=== PATIENT | female | born 2000 | race Caucasian/White ===

== ENCOUNTER 2022-07-09 07:17 | Emergency (ER) | payer OTHER, SELFPAY ==
--- NOTE | ~2022-07-09 | US_ITS ---
EXAMINATION: US pelvic complete DATE: 07/09/2022 09:04 INDICATION: Vaginal bleeding. . TECHNIQUE: Real-time transabdominal pelvic ultrasound was performed. COMPARISON: None. FINDINGS: The uterus measures 12.6 x 7.6 x 5.2 cm. There is a cyst in the endometrial complex measuring 5.4 x 2 .9 x 5.2 cm with internal low-level echoes. No yolk sac or pole is identified. The right ovary measures 2.6 x 1.3 x 1.5 cm. The left ovary measures 2.3 x 1.6 x 1.3 cm. There is no free fluid in t he pelvis. IMPRESSION: 1. Fluid collection in the endometrial complex with mean diameter of 4.5 cm and internal low-level e choes. This finding is indeterminate for a gestational sac. If this finding is a gestational sac, it would be consistent with a failed . Ectopic is not excluded. Serial beta-hCGs are recommended. Reviewed, dictated and finalized at location A. IMPRESSION: 1. Fluid collection in the endometrial complex with mean diameter of 4.5 cm an d internal low-level echoes. This finding is indeterminate for a gestational sa c. If this finding is a gestational sac, it would be consistent with a failed p regnancy. Ectopic is not excluded. Serial beta-hCGs are recommended.
[2022-07-09 07:23] VITALS: BP 151/92; PULSE 103; RESP 16; TEMP 36.7; O2SAT 100
--- NOTE | 2022-07-09 07:29 | ED.GENADULT ---
HPI - General Adult General Chief complaint: Vaginal Bleeding Stated complaint: bleeding while Time Seen by Provider: 07/09/22 07:18 History of Present Illness HPI narrative: 22-year-old female presenting the emergency department for evaluation of bleeding during a suspected . Patient states she suspects she is approximately 14 weeks . Patient has had a positive home test but has not yet had follow-up with [facility]. Patient is G1, P0. Patient states last night she began having some vaginal spotting and then had vaginal bleeding consistent with normal menses. Patient denies any pain with urination. Patient denies any associated nausea vomiting diarrhea chest pain or shortness of breath. Patient states she has not had follow-up with [facility] because she works nights. Related Data Allergies Allergy/AdvReac Type Severity Reaction Status Date / Time No Known Allergies Allergy Verified 07/09/22 07:18 Review of Systems Review of Systems: CONSTITUTIONAL: Denies fever, chills, or sweats. EYES: Denies visual changes, redness, or discharge. ENT: Denies rhinorrhea, congestion, sore throat, or otalgia. CARDIOVASCULAR: Denies chest pain, palpitations, or edema. RESPIRATORY: Denies cough or dyspnea. GASTROINTESTINAL: See HPI GENITOURINARY: Denies dysuria or hematuria. SKIN: Denies rash or itching. MUSCULOSKELETAL: Denies back pain, joint pain, or myalgia. NEUROLOGIC: Denies headache, numbness, or weakness. PSYCHIATRIC: Denies anxiety or depression. Exam Narrative: APPEARANCE: Well appearing, no pain, no distress, well-nourished. HEAD: normocephalic, atraumatic. EYES: PERRLA/EOMI, conjunctivae clear. NOSE: Normal no drainage NECK: Supple. No adenopathy, no masses. RESPIRATORY: Airway patent, respirations nonlabored. Clear to auscultation bilaterally, no rales, rhonchi, wheezing. CARDIOVASCULAR: Regular rate and rhythm without murmurs rubs or gallops. ABDOMINAL: Soft, nontender, nondistended, normal bowel sounds MUSCULOSKELETAL: Moves all extremities. Strength/ROM intact, No edema, No calf tenderness. NEURO: Alert. Cranial nerves II through XII intact. Grossly intact SKIN: Warm, dry. Normal Color Course Course Emergency Course: Discussed case with Dr. Cruz. We will plan for close outpatient follow-up. Outpatient beta-hCG was ordered for Tuesday. Patient was updated on the results of the work-up and suspected early stages of miscarriage. Patient was encouraged to continue drink plenty of water and take Tylenol for pain control. Patient states that the vaginal bleeding is still menstrual levels. Patient's labs are within normal limits including a hemoglobin of 14.3. All questions concerns were addressed. Patient was well-appearing at time of discharge from emergency room. Vital Signs Vital signs: Vital Signs Temperature 98.0 F 07/09/22 07:23 Pulse Rate 103 H 07/09/22 07:23 Respiratory Rate 16 07/09/22 07:23 Blood Pressure 151/92 H 07/09/22 07:23 Pulse Oximetry 100 07/09/22 07:23 Oxygen Delivery Room Air 07/09/22 07:23 Temperature 98.0 F 07/09/22 07:23 Pulse Rate 103 H 07/09/22 07:23 Respiratory Rate 16 07/09/22 07:23 Blood Pressure 151/92 H 07/09/22 07:23 Pulse Oximetry 100 07/09/22 07:23 Oxygen Delivery Room Air 07/09/22 07:23 Medical Decision Making Vital Signs Vital Signs: Vital Signs Temperature 98.0 F 07/09/22 07:23 Pulse Rate 103 H 07/09/22 07:23 Respiratory Rate 16 07/09/22 07:23 Blood Pressure 151/92 H 07/09/22 07:23 Pulse Oximetry 100 07/09/22 07:23 Oxygen Delivery Room Air 07/09/22 07:23 Temperature 98.0 F 07/09/22 07:23 Pulse Rate 103 H 07/09/22 07:23 Respiratory Rate 16 07/09/22 07:23 Blood Pressure 151/92 H 07/09/22 07:23 Pulse Oximetry 100 07/09/22 07:23 Oxygen Delivery Room Air 07/09/22 07:23 Lab Data Lab results reviewed: Yes I reviewed the patient's lab results. Result diagrams:
[2022-07-09 07:59] LABS: Appearance Urine Cloudy (Clear); Bilirubin Urine Negative (Negative); Blood Urine 3+ (Negative); Color Urine Yellow (Yellow); Glucose Urine UA Negative (Negative); Ketones Urine Negative (Negative); Leukocyte Esterase Ur Negative LEU/UL (Negative); Nitrate Urine Negative (Negative); Protein Urine 1+ mg/dL (Negative); Specific Grav Ur 1.025 (1.001-1.035); Urobilinogen Urine 0.2 mg/dL (<2.0); pH Urine 6.5 (5.0-9.0)
[2022-07-09 08:01] LABS: Basophils Absolute Auto 0.1 K/mm3 (0.0-0.1); Basophils Percent Auto 0.4 % (0.2-1.2); Eosinophils Absolute Auto 0.2 K/mm3 (0-0.3); Eosinophils Percent Auto 1.7 % (0-4.4); Hematocrit 41.8 % (37.0-47.0); Hemoglobin 14.3 g/dL (12.0-15.0); Immature Granulocyte Absolute 0.03 K/mm3 (0.00-0.031); Immature Granulocyte Percent A 0.3 % (0-0.5); Lymphocytes Absolute Auto 2.31 K/mm3 (0.9-3.2); Lymphocytes Percent Auto 19.7 % (18.3-44.2); Mean Corpuscular HGB Conc 34.2 g/dl (32-36); Mean Corpuscular Hemoglobin 30.5 pg (26-34); Mean Corpuscular Volume 89.1 fl (80-100); Mean Platelet Volume 10.9 fl (7.4-10.4); Monocytes Absolute Auto 0.7 K/mm3 (0.1-0.6); Monocytes Percent Auto 6.2 % (2.6-8.5); Neutrophils Absolute Auto 8.4 K/mm3 (1.3-6.7); Neutrophils Percent Auto 71.7 % (45.5-73.1); Platelet Count Result 233 k/mm3 (150-375); Red Blood Count 4.69 M/mm3 (4.2-5.4); Red Cell Distribution Width 11.8 % (11.5-14.5); White Blood Count 11.7 K/mm3 (4.5-10.0)
[2022-07-09 08:03] LABS: Mucus Urine Rare /lpf; RBC Urine >75 /hpf (0-2); Squamous Epithelial Cell Urine Few /hpf (Few); WBC Urine 0-3 /hpf
[2022-07-09 08:05] LABS: Add Urine Microscopic? YES
[2022-07-09 08:07] LABS: INR 1.1; Prothrombin Time 13.3 Seconds (11.1-14.7)
[2022-07-09 08:08] LABS: Partial Thromboplastin Time 30.8 SECONDS (22.3-36.8)
[2022-07-09 08:11] LABS: Alanine Aminotransferase 25 U/L (6-35); Albumin Level 4.5 g/dL (3.5-5.1); Alkaline Phosphatase 62 U/L (38-126); Anion Gap 10 mmol/L (8-16); Aspartate Amino Transferase 25 U/L (14-36); Bilirubin,Total 0.3 mg/dL (0.2-1.3); Blood Urea Nitrogen 10 mg/dL (7-17); Calcium 8.9 mg/dL (8.4-10.2); Carbon Dioxide 26 mmol/L (22-30); Chloride 104 mmol/L (98-107); Estimated CRCL calculation 148 ml/min; Estimated Glomerular Filt Rate > 60; Glucose 92 mg/dL (65-110); Potassium 3.8 mmol/L (3.4-5.0); Sodium 140 mmol/L (137-145)
[2022-07-09 10:02] VITALS: BP 149/89; PULSE 98; RESP 18; O2SAT 98
== END 2022-07-09 10:31 | disposition home or self-care (01) ==
PROVIDERS: Emergency Provider Emergency Medicine; PCP Family Medicine
DX: O20.9 Hemorrhage in early pregnancy, unspecified (principal); Z3A.01 Less than 8 weeks gestation of pregnancy
CPT/HCPCS: 36415; 76856; 80053; 81001; 81025; 84702; 85025; 85461; 85610; 85730; 86900; 86901; 99284

== ENCOUNTER 2022-07-09 15:42 | Emergency (ER) | payer OTHER, SELFPAY ==
[2022-07-09 15:55] VITALS: BP 138/97; PULSE 113; RESP 18; TEMP 36.2; O2SAT 98
[2022-07-09 17:01] LABS: Basophils Absolute Auto 0.1 K/mm3 (0.0-0.1); Basophils Percent Auto 0.3 % (0.2-1.2); Eosinophils Absolute Auto 0.1 K/mm3 (0-0.3); Eosinophils Percent Auto 0.6 % (0-4.4); Hematocrit 40.6 % (37.0-47.0); Hemoglobin 14.2 g/dL (12.0-15.0); Immature Granulocyte Percent A 0.5 % (0-0.5); Lymphocytes Absolute Auto 1.61 K/mm3 (0.9-3.2); Lymphocytes Percent Auto 8.6 % (18.3-44.2); Mean Corpuscular Volume 88.6 fl (80-100); Mean Platelet Volume 10.9 fl (7.4-10.4); Monocytes Absolute Auto 0.9 K/mm3 (0.1-0.6); Monocytes Percent Auto 4.7 % (2.6-8.5); Neutrophils Absolute Auto 15.9 K/mm3 (1.3-6.7); Neutrophils Percent Auto 85.3 % (45.5-73.1); Platelet Count Result 236 k/mm3 (150-375); Red Blood Count 4.58 M/mm3 (4.2-5.4); Red Cell Distribution Width 11.9 % (11.5-14.5); White Blood Count 18.6 K/mm3 (4.5-10.0)
--- NOTE | 2022-07-09 17:17 | PC.NURSE ---
States she is passing clots. Saturated through an adult diaper on the drive here. .
--- NOTE | 2022-07-09 17:54 | ED.PREGNANCY ---
HPI - General Chief complaint: Vaginal Bleeding <Frieda Montoya PA-C - Last Filed: 07/09/22 18:22> Stated complaint: heavy vaginal bleeding while <Frieda Montoya PA-C - Last Filed: 07/09/22 18:22> Time Seen by Provider: 07/09/22 17:21 <Frieda Montoya PA-C - Last Filed: 07/09/22 18:22> Source: patient <ROGELIO Rucker Last Filed: 07/09/22 18:22> Mode of arrival: ambulatory <ROGELIO Rucker Last Filed: 07/09/22 18:22> Limitations: no limitations <ROGELIO Rucker Last Filed: 07/09/22 18:22> History of Present Illness HPI Narrative: This is a 22 year old , about 14 weeks by LMP that presents to the ER for vaginal bleeding. Reports she was seen earlier today for a possible miscarriage. Reports worsening bleeding which prompted her to be seen again. Denies fever or vomiting. <Frieda Montoya PA-C - Last Filed: 07/09/22 18:22> Related Data Home medications: Home Medications Medication Instructions Recorded Confirmed No Home Medications 07/13/22 07/13/22 <Frieda Montoya PA-C - Last Filed: 07/09/22 18:22> Allergies/Adverse reactions: Allergies Allergy/AdvReac Type Severity Reaction Status Date / Time No Known Allergies Allergy Verified 07/13/22 13:42 <ROGELIO Rukcer Last Filed: 07/09/22 18:22> Review of Systems Review of Systems: CONSTITUTIONAL: Denies fever GASTROINTESTINAL: Denies abdominal pain, nausea, vomiting <ROGELIO Rucker Last Filed: 07/09/22 18:22> All systems reviewed & are unremarkable except as noted in HPI and below <ROGELIO Rucker Last Filed: 07/09/22 18:22> PMFSH Past Medical History Medical History: Medical History Depression No active medical problems <Frieda Montoya PA-C - Last Filed: 07/09/22 18:22> Surgical History Surgical History: Surgical History History of appendectomy <Frieda Montoya PA-C - Last Filed: 07/09/22 18:22> Family History Family History: Family History Other Diabetes mellitus Heart disease <Frieda Montoya PA-C - Last Filed: 07/09/22 18:22> Social History Social History: Social History (Updated 07/13/22 @ 13:44 by Gladis Corral MA) Smoking packs per day: 0.5 Smoking cigarettes per day: 10.0 Years smoked: 4 Smoking pack-years: 2.00 Smoking status: Current every day smoker Smokeless tobacco user: chewing tobacco Alcohol intake: never Substance use: never Substance use type: does not use Gender identity (if verbalized by the patient): Female Sexual Orientation (if Verbalized by the Patient): Straight or Heterosexual <Frieda Montoya PA-C - Last Filed: 07/09/22 18:22> Exam Narrative: GENERAL: Well-appearing, well-nourished, and in no acute distress. HEAD: Normocephalic, atraumatic. EYES: EOMI. CHEST: No respiratory distress. HEART: Regular rate EXTREMITIES: Normal range of motion. No edema. SKIN: Warm, dry, no rash. NEURO: No focal deficits. Alert and oriented x3. PSYCH: Normal mood and affect PELVIC: Normal external genitalia. Normal appearing cervix. Small amount of dark red blood in the vaginal vault <Frieda Montoya PA-C - Last Filed: 07/09/22 18:22> Course MANAGER PHARMACY/PA Physician Supervision For this patient encounter, I reviewed the MANAGER PHARMACY or PA documentation, treatment plan, and medical decision making. I was available for consultation as needed. <Amanda Holden MD - Last Filed: 07/23/22 16:13> Vital Signs Vital signs: Vital Signs Temperature 97.1 F L 07/09/22 15:55 Pulse Rate 113 H 07/09/22 15:55 Respiratory Rate 18 07/09/22 15:55 Blood Pressure 138/97 H 07/09/22 15:55 Pulse Oximetry 98 07/09/22 15:55 Temperature 97.1 F L 07/09/22 15:55 Pulse Rate 113 H 07/09/22
== END 2022-07-09 18:32 | disposition home or self-care (01) ==
PROVIDERS: Emergency Medicine; Emergency Provider Emergency Medicine; PCP Family Medicine
DX: O03.9 Complete or unspecified spontaneous abortion without complication (principal); F17.200 Nicotine dependence, unspecified, uncomplicated
CPT/HCPCS: 36415; 84702; 85025; 85461; 99284

== ENCOUNTER 2022-07-13 14:47 | Outpatient (CLI) | payer OTHER, SELFPAY ==
[2022-07-13 15:26] LABS: Beta HCG Quantitative 37.51 mIU/ML
== END 2022-07-13 14:48 | disposition home or self-care (01) ==
LOC: ANHLAB 14:48
PROVIDERS: PCP Family Medicine; Visit Provider Emergency Medicine
DX: N93.9 Abnormal uterine and vaginal bleeding, unspecified (principal)
CPT/HCPCS: 36415; 84702

== ENCOUNTER 2022-07-22 08:28 | Outpatient (CLI) | payer OTHER, SELFPAY ==
[2022-07-22 09:22] LABS: Beta HCG Quantitative 5.57 mIU/ML
== END 2022-07-22 08:29 | disposition home or self-care (01) ==
PROVIDERS: PCP Family Medicine; Visit Provider Obstetrics & Gynecology
DX: O02.1 Missed abortion (principal)
CPT/HCPCS: 36415; 84702

== ENCOUNTER 2022-08-04 11:10 | Outpatient (CLI) | payer OTHER, SELFPAY ==
[2022-08-04 12:35] LABS: Cholesterol 192 mg/dL (0-200); HDL Direct 33 mg/dL; Triglycerides 224 mg/dL (<150)
[2022-08-04 12:37] LABS: Basophils Absolute Auto 0.1 K/mm3 (0.0-0.1); Basophils Percent Auto 0.8 % (0.2-1.2); Eosinophils Absolute Auto 0.4 K/mm3 (0-0.3); Eosinophils Percent Auto 6.5 % (0-4.4); Hemoglobin 14.4 g/dL (12.0-15.0); Immature Granulocyte Absolute 0.01 K/mm3 (0.00-0.031); Immature Granulocyte Percent A 0.2 % (0-0.5); Lymphocytes Absolute Auto 2.83 K/mm3 (0.9-3.2); Lymphocytes Percent Auto 44.8 % (18.3-44.2); Mean Corpuscular HGB Conc 33.5 g/dl (32-36); Mean Corpuscular Hemoglobin 29.9 pg (26-34); Mean Corpuscular Volume 89.2 fl (80-100); Mean Platelet Volume 11.6 fl (7.4-10.4); Monocytes Absolute Auto 0.4 K/mm3 (0.1-0.6); Neutrophils Absolute Auto 2.6 K/mm3 (1.3-6.7); Neutrophils Percent Auto 40.7 % (45.5-73.1); Platelet Count Result 258 k/mm3 (150-375); Red Blood Count 4.82 M/mm3 (4.2-5.4); Red Cell Distribution Width 11.3 % (11.5-14.5); White Blood Count 6.3 K/mm3 (4.5-10.0)
[2022-08-04 12:46] LABS: LDL Cholesterol Direct 119 mg/dL
[2022-08-04 12:52] LABS: Beta HCG Quantitative < 2.39 mIU/ML
[2022-08-04 13:07] LABS: Thyroid Stimulating Hormone 0.865 uIU/mL (0.465-4.680)
== END 2022-08-04 11:11 | disposition home or self-care (01) ==
PROVIDERS: PCP Family Medicine; Referring Provider Obstetrics & Gynecology; Visit Provider Nurse Practitioner Family
DX: Z13.29 Encounter for screening for other suspected endocrine disorder (principal); O02.1 Missed abortion; Z13.220 Encounter for screening for lipoid disorders; D72.829 Elevated white blood cell count, unspecified; Z3A.00 Weeks of gestation of pregnancy not specified
CPT/HCPCS: 36415; 80061; 84443; 84702; 85025

== ENCOUNTER 2022-08-13 11:48 | Outpatient (CLI) | payer OTHER, SELFPAY ==
[2022-08-13 12:40] LABS: Beta HCG Quantitative < 2.39 mIU/ML
[2022-08-13 13:28] LABS: Hemoglobin A1C 5.6 % (<5.7)
[2022-08-16 11:44] LABS: DHEA-Sulfate 164 mcg/dL (18-391)
[2022-08-16 14:36] LABS: FSH 4.5 mIU/mL (***); Progesterone 8.7 ng/mL (***); Prolactin 12.8 ng/mL (***)
[2022-08-17 14:21] LABS: Testosterone Free 4.1 pg/mL (0.1-6.4); Testosterone Total 25 ng/dL (2-45)
[2022-08-19 22:23] LABS: Estradiol, Ultrasensitive 68 pg/mL
== END 2022-08-13 11:49 | disposition home or self-care (01) ==
LOC: ANHLAB 11:49
PROVIDERS: PCP Family Medicine; Visit Provider Obstetrics & Gynecology
DX: N92.6 Irregular menstruation, unspecified (principal)
CPT/HCPCS: 36415; 82627; 82670; 83001; 83036; 83498; 84144; 84146; 84402; 84403; 84702

== ENCOUNTER 2022-12-20 09:59 | Outpatient (CLI) | payer OTHER, SELFPAY ==
[2022-12-20 10:32] LABS: Basophils Absolute Auto 0.1 K/mm3 (0.0-0.1); Basophils Percent Auto 0.7 % (0.2-1.2); Eosinophils Absolute Auto 0.2 K/mm3 (0-0.3); Eosinophils Percent Auto 2.3 % (0-4.4); Hematocrit 42.6 % (37.0-47.0); Hemoglobin 14.6 g/dL (12.0-15.0); Immature Granulocyte Absolute 0.02 K/mm3 (0.00-0.031); Immature Granulocyte Percent A 0.2 % (0-0.5); Mean Corpuscular HGB Conc 34.3 g/dl (32-36); Mean Corpuscular Hemoglobin 30.2 pg (26-34); Mean Corpuscular Volume 88.2 fl (80-100); Monocytes Absolute Auto 0.8 K/mm3 (0.1-0.6); Monocytes Percent Auto 9.3 % (2.6-8.5); Neutrophils Absolute Auto 4.3 K/mm3 (1.3-6.7); Neutrophils Percent Auto 49.5 % (45.5-73.1); Platelet Count Result 247 k/mm3 (150-375); Red Blood Count 4.83 M/mm3 (4.2-5.4); Red Cell Distribution Width 11.9 % (11.5-14.5); White Blood Count 8.7 K/mm3 (4.5-10.0)
[2022-12-20 10:59] LABS: Beta HCG Quantitative 35.27 mIU/ML
[2022-12-20 11:21] LABS: HIV 1/2 Ab P24 Ag Result Negative (Negative)
[2022-12-20 11:27] LABS: Rubella IgG Antibody 52.5 IU/ML
[2022-12-20 16:44] LABS: Rapid Plasma Reagin Non-Reactive (NonReactive)
== END 2022-12-20 10:00 | disposition home or self-care (01) ==
LOC: ANHLAB 10:00
PROVIDERS: PCP Family Medicine; Visit Provider Obstetrics & Gynecology
DX: N94.89 Other specified conditions associated with female genital organs and menstrual cycle (principal); O20.0 Threatened abortion; Z3A.00 Weeks of gestation of pregnancy not specified
CPT/HCPCS: 36415; 84702; 85025; 86592; 86703; 86762; 86900; 86901; G0432

== ENCOUNTER 2022-12-22 12:28 | Outpatient (CLI) | payer OTHER, SELFPAY | END 2022-12-22 12:29 | disposition home or self-care (01) | LOC: ANHLAB 12:29 | PROVIDERS: PCP Family Medicine; Visit Provider Obstetrics & Gynecology | DX: O20.0 Threatened abortion (principal); Z3A.00 Weeks of gestation of pregnancy not specified | CPT/HCPCS: 36415; 84702 ==

== ENCOUNTER 2022-12-27 11:12 | Outpatient (CLI) | payer OTHER, SELFPAY ==
[2022-12-27 13:03] LABS: Beta HCG Quantitative 9.47 mIU/ML
== END 2022-12-27 11:13 | disposition home or self-care (01) ==
PROVIDERS: PCP Family Medicine; Visit Provider Obstetrics & Gynecology
DX: O20.0 Threatened abortion (principal)
CPT/HCPCS: 36415; 84702

== ENCOUNTER 2023-06-14 11:05 | Outpatient (CLI) | payer OTHER, SELFPAY ==
[2023-06-14 11:42] LABS: Basophils Absolute Auto 0.1 K/mm3 (0.0-0.1); Basophils Percent Auto 0.8 % (0.2-1.2); Eosinophils Absolute Auto 0.1 K/mm3 (0-0.3); Eosinophils Percent Auto 1.3 % (0-4.4); Hematocrit 42.6 % (37.0-47.0); Hemoglobin 14.3 g/dL (12.0-15.0); Immature Granulocyte Absolute 0.07 K/mm3 (0.00-0.031); Lymphocytes Absolute Auto 2.76 K/mm3 (0.9-3.2); Mean Corpuscular HGB Conc 33.6 g/dl (32-36); Mean Corpuscular Volume 89.3 fl (80-100); Mean Platelet Volume 11.4 fl (7.4-10.4); Monocytes Absolute Auto 0.6 K/mm3 (0.1-0.6); Monocytes Percent Auto 8.8 % (2.6-8.5); Neutrophils Absolute Auto 3.5 K/mm3 (1.3-6.7); Neutrophils Percent Auto 49.1 % (45.5-73.1); Platelet Count Result 239 k/mm3 (150-375); Red Blood Count 4.77 M/mm3 (4.2-5.4); Red Cell Distribution Width 11.7 % (11.5-14.5); White Blood Count 7.1 K/mm3 (4.5-10.0)
[2023-06-14 11:59] LABS: Anion Gap 7 mmol/L (8-16); Blood Urea Nitrogen 14 mg/dL (7-17); Calcium 9.3 mg/dL (8.4-10.2); Carbon Dioxide 25 mmol/L (22-30); Chloride 104 mmol/L (98-107); Estimated Glomerular Filt Rate > 60; Glucose 98 mg/dL (65-110); Potassium 3.9 mmol/L (3.4-5.0); Sodium 136 mmol/L (137-145)
== END 2023-06-14 11:06 | disposition home or self-care (01) ==
LOC: ANHLAB 11:06
PROVIDERS: PCP Family Medicine; Visit Provider Physician Assistant Medical
DX: D72.829 Elevated white blood cell count, unspecified (principal); N92.6 Irregular menstruation, unspecified; L81.9 Disorder of pigmentation, unspecified
CPT/HCPCS: 36415; 80048; 85025

== ENCOUNTER → 2023-06-14 11:28 | Outpatient (REF) | payer OTHER, SELFPAY | LOC: ANHLAB 11:28 | PROVIDERS: PCP Family Medicine; Visit Provider Plastic Surgery | DX: C43.72 Malignant melanoma of left lower limb, including hip (principal) | CPT/HCPCS: 36415; 80048; 85025; 88305 ==

== ENCOUNTER 2023-08-25 00:25 | Day surgery (SDC) | payer OTHER, SELFPAY ==
[2023-08-16 13:37] VITALS: BMI 43.6
--- NOTE | 2023-08-16 13:49 | PC.NURSE ---
Report to the Outpatient Waiting Room, entrance under the green pavilion located off [facility], at time _0630_ on date _[id number]_. Planned Procedure Time: _0900_. Nuc med injection at 0730 Time changes happen often and if your time is changed the preop area will call you the afternoon before. - You and your visitor will be asked to self-screen and do not enter if you have any COVID symptoms. - A mask is optional within the hospital at this time. Patients may have clear liquids (water, carbonated beverages, clear teas, apple juice) until 3 hours prior to surgery with a maximum of 20 ounces. - No food from midnight until time of surgery Take the following medications with a SIP of water the morning of surgery: ___Aprill DO NOT STOP ANY OF YOUR OTHER PRESCRIPTION MEDICATIONS PRIOR TO SURGERY ?EXCEPT THE FOLLOWING Medications to discontinue per physician None Date to take last dose Please no make-up, nail wolof, hairspray, perfume, deodorant, or body powder the day of surgery. No jewelry (including any body piercings) or valuables the day of surgery, leave them at home. Please take a shower or bath the night before, or the morning of, surgery with an antibacterial soap. Wear comfortable, loose fitting clothing. - Jewelry must be removed prior to entering the operating room. Rings and piercings that are not removed may be cut off. - The hospital will not accept responsibility for valuables. - Please leave all valuables, including medications, at home the day of surgery. If you are going home after surgery, a licensed commercial driver's license driver must drive you home. - NO public transportation without another adult if you receive anesthesia. - We recommend that an adult stay with you for 24 hours following discharge. - We also recommend that you do not drive, make important decision, drink alcoholic beverages, or take any drugs that were not prescribed by your health care provider for at least 24 hours after your discharge time. Follow any additional instructions given to you from your surgeon. If you or anyone in your household have experienced Covid symptoms in the past week, please notify your surgeon or the nurse liaison at the phone number below for possible testing. Telephone instructions given to __Patient__and asked if any additional questions and then verbalized understanding. Patient advised to call surgeon office or pre surgery nurse liaison [phone] if any additional questions.
[2023-08-25] VITALS (9 sets, daily range): BP systolic 141–152; BP diastolic 70–98; PULSE 75–107; RESP 14–22; TEMP 36.6–36.9; O2SAT 97–99; BMI 44.4
--- NOTE | ~2023-08-25 | NM_ITS ---
NM sentinel node w imaging 08/26/2023 13:23 CDT INDICATION:: Melanoma of the left foot TECHNIQUE: 0.5 Millicuries Tc 99m Tilanocept was injected using 2 aliquots in the left foot at the elder rgical excision site. Subsequent images demonstrate mild uptake in the left inguinal region, likely l ymph node uptake. IMPRESSION: 1: Status post left foot sentinel lymph node radiopharmaceutical injection with mild uptake in the l eft inguinal location. Reviewed, dictated and finalized at location A. IMPRESSION: 1: Status post left foot sentinel lymph node radiopharmaceutical injection wit h mild uptake in the left inguinal location.
[2023-08-25] MEDS: LACTATED RINGERS 1,000 ML 30 ML IV CONT ×3 (07:00→12:49)
--- NOTE | 2023-08-25 08:05 | WPDHPUPDATE1 ---
History and Physical Update Update Date/Time: 08/25/23 08:05 Patient seen and examined in pre-operative holding area. No interval change in medical history or symptoms. Continues to desire to proceed with left foot melanoma excision for additional margins and full thickness skin graft. Reviewed procedure, post-op expectations and risks including but not limited to bleeding, infection, injury to tendon/nerve/vessel, partial/total graft failure, donor site complications, stiffness, recurrence, no change or worsening of symptoms. Patient stated understanding and signed the consent form wishing to proceed. ROS: full review of systems and within normal limits PE: CV: RRR Pulm: CTAB Plan: proceed with left foot melanoma excision and ftsg
--- NOTE | 2023-08-25 08:07 | P.OP_ITS ---
Procedure Note - Detailed Date of Procedure 08/25/23 Pre-op Diagnosis Hx of Melanoma Left Foot Post-op Diagnosis Same Procedure Performed re-excision left dorsal foot melanoma and full thickness skin graft Surgeon Sidney De MD Anesthesia General Description of Procedure Patient was seen in pre-op holding area and marked and consent signed. She was taken back to the operating room and placed on the table in supine position. Time out was performed with anesthesia, surgeons, and staff agreeing on patients name, site and surgery to be performed. SCDs were placed on the Right Lower Extremity and inflated. Antibiotics were given IV. After General anesthesia was administered the left lower extremity and groin were prepped in sterile fashion. I transposed the marked excision site margins to the left inguinal crease which encompassed the planned incision for Dr. Cantrell and then made this incision with a 15-blade scalpel through skin and dermis. I used bovie to complete the excision of the full thickness graft. Care was then given to Dr. Cantrell who performed a sentinel lymph node biopsy. I proceeded with making an incision around her previous left dorsal foot excision site with 2cm margins. The defect size measured 5.3x4.5cm. Hemostasis was with bovie cautery. I irrigated with NS. The graft was defatted and then sewn into place with 3-0 nylon and 4-0 chromic sutures. a xeroform bolster was then sewn into place using the tails of the nylon sutures. After changing gloves and using clean instruments, I irrigated the donor site with normal saline. The donor site was closed with 3-0 vicyl for fascia and dermis and 4-0 monocryl. A dressing of dermabond, 4x4 and tegaderm was used for the donor site. 4x4, kerlix, and cam boot was placed on the left lower extremity to prevent ankle motion. The patient was awaken from anesthesia and transferred to recovery in stable condition. Complicaitons: none EBL: 6cc Disposition: Discharged home in stable condition [facility] [place] Surgery - Charge Forward: Surgery Billing ([id number] and [id number] and [id number])
--- NOTE | 2023-08-25 09:03 | WPDANESEPPF ---
Anes - Initial Pre Proc Eval Procedure: Operation Date: 08/25/23 09:00 Proposed Procedures p [place] Lymph Node Biopsy Melanoma Left Foot - Roc Taylor MD s Excision Melanoma Left Foot with Full Thickness Skin Graft - Sidney De MD Date/Time: 08/25/23 09:03 Surgeon: Roc Taylor MD Pre Op Diagnosis: Hx of Melanoma Left Foot Patient Data Age: 23 Gender: F Height: 1.68 m Weight: 125 kg Last Vital Signs Temp 97.8 F 08/25/23 06:35 Pulse 78 08/25/23 06:35 Resp 16 08/25/23 06:35 BP 152/88 H 08/25/23 06:35 Pulse Ox 98 08/25/23 06:35 O2 Del Method Room Air 08/25/23 06:35 Allergies Allergy/AdvReac Type Severity Reaction Status Date / Time No Known Allergies Allergy Verified 08/25/23 06:53 Home Medications Medication Instructions Recorded Confirmed Type norethindrone 1 mg-ethinyl 1 tablet PO DAILY 08/16/23 08/25/23 History estradiol 20 mcg (24)-iron 75 mg (4) tablet () Patient hx anesthesia problems: none Family hx anesthesia problems: none Results Review: All pre-operative results and documents have been reviewed as part of the pre-operative evaluation. [facility] Past Medical History Medical History BMI 40.0-44.9, adult Depression No active medical problems Suppression, menstruation Surgical History Surgical History History of appendectomy Family History Family History Father No problems noted. Mother No problems noted. Sibling No problems noted. Other Diabetes mellitus Heart disease Social History Social History Smoking packs per day: 0.5 Smoking cigarettes per day: 10.0 Years smoked: 4 Smoking pack-years: 2.00 Smoking status: Former smoker Tobacco type: cigarettes Second hand tobacco smoke exposure: Yes Smoking end date: 12/17/22 Alcohol intake: never Substance use: current Substance use type: marijuana Other substance usage details: Not very often Lack of Transportation: No Lack of Food: Never True Current Housing: I Have Housing Concerned About Future Housing: No Difficulty Paying Gas/Electric Bills: No Difficulty Paying for Meds: No Currently Unemployed: No Education: High School Diploma/GED Difficulty w/ Childcare or Family Care: No Living arrangements: with family Occupation/Education: occupation Additional occupation/education comments: [employer] Gender identity (if verbalized by the patient): Female Sexual Orientation (if Verbalized by the Patient): Straight or Heterosexual Spiritual care concerns: No Anes - Eval Final PreProcedure Day of Procedure 08/25/23 09:03 Patient weight: morbidly obese Heart: regular rate and rhythm Lungs: clear to auscultation Airway: Mallampati scale class II Neurological: alert and oriented Last oral intake: >/= 8 hours ASA classification: III Emergent: no Anesthetic plan: proceed Anesthesia type and monitoring: general LMA and standard monitoring Results Review: All pre-operative results and documents have been reviewed as part of the pre-operative evaluation. Informed Consent: The patient's anesthetic plan and its attendant risks and benefits were discussed with the patient/family/POA. Questions were solicited and answers provided to the satisfaction of the patient/family/POA.
--- NOTE | 2023-08-25 09:16 | WPDHPUPDATE1 ---
History and Physical Update Update Date/Time: 08/25/23 09:16 History and Physical has been reviewed, including an updated exam of the patient. There are NO changes in the patient's condition. Risks, benefits, and alternatives have been discussed and questions answered. Patient agrees to proceed with procedure.
[2023-08-25] MEDS: ceFAZolin 3 GM/D5W 100 ML 100 ML IVPB (09:28)
[2023-08-25] MEDS: LIDO 1%/EPINEPHRINE 1:100,000 20 ML VIAL 10 ML INFILTRATE (10:07)
--- NOTE | 2023-08-25 10:48 | SUR.OPER ---
Signal for Superficial Lateral Left Groin Lymph Node: 186 Signal for Superficial Vertical Left Groin Lymph Node: 199
--- NOTE | 2023-08-25 10:55 | P.OP_ITS ---
Procedure Note - Detailed Date of Procedure 08/25/23 Pre-op Diagnosis Hx of Melanoma Left Foot Post-op Diagnosis Same Procedure Performed Neponset node biopsy, superficial x2 left groin Surgeon Roc Taylor MD Environmental Remediation Engineer Huyen S Anesthesia General Indications PT4b melanoma left foot without palpable lymphadenopathy Findings Non discolored normal appearing superficial lateral lymph node. Non discolored normal-appearing superficial inferior ''vertical lymph node Description of Procedure This is the Dr. Roc Taylor portion of the case schedule today by Dr. De for treatment of the pT4b melanoma of the left foot. Dr. De is performing the wide excision and skin grafting at the primary tumor site today. Dr. Taylor will be doing the sentinel node biopsy at Dr. De's request. The patient was seen in the holding area following the injection of TC99 colloid dye to the area of the melanoma of the left dorsal foot. A site of uptake was identified in the left groin. The site was initialed by me. She was taken to the operating room placed supine on the operating table she was given general endotracheal anesthesia. The left groin area and left foot were prepped and draped in usual fashion. The bed was adjusted to allow slight hyperextension of the hips. The abdomen had been taped to an elevated position. The surgical site was clearly visible. The gamma probe was applied to the marked sites and indeed an elevated count was identified. Dr. De began the surgery at this site by taking a full-thickness skin graft from the groin area overlying the sentinel node. Gilma's fascia was incised. The gamma probe was brought up and the 1st lymph node easily identified in the superficial lateral group. This was carefully dissected primarily with blunt dissection and bipolar cautery. The afferent and efferent lymphatics were clamped and the node taken off with bipolar cautery. The the gamma count on the tumor was 186 in an out of the wound. The background count was 9 A 2nd node was identified by the gamma probe. This lay along side the saphenous vein slightly more distally. This was taken out in the same fashion. The counts in vivo was 199, ex vivo the same, the background count was 6. Scanning around the region no additional hot sites were identified. This wound was closed by Dr. De. All discharge orders are written by Dr. De. The patient will follow up with Dr. De Estimated Blood Loss 15 Tourniquet Time 0 Drains No Packing No Pathology Yes Complications No immediate complications Condition Stable Disposition PACU
[2023-08-25] MEDS: oxyCODONE HCL (*CRX) 5 MG TAB IR PO (12:44)
[2023-08-25] MEDS: ONDANSETRON INJ 4 MG/2 ML VIAL IV PUSH (12:45)
--- NOTE | 2023-08-25 13:57 | SUR.PHASEII ---
CRUTCHES ADJUSTED TO SIZE FOR PATIENT.
== END 2023-08-25 13:25 | disposition home or self-care (01) ==
PROVIDERS: Plastic Surgery; PCP Family Medicine; Visit Provider Plastic Surgery
PROC: (CPT 38531; principal; 2023-08-25 09:00)
PROC: (CPT 11626; 2023-08-25 09:00)
DX: C43.72 Malignant melanoma of left lower limb, including hip (principal); C77.4 Secondary and unspecified malignant neoplasm of inguinal and lower limb lymph nodes; Z87.891 Personal history of nicotine dependence; F12.90 Cannabis use, unspecified, uncomplicated; E66.01 Morbid (severe) obesity due to excess calories; Z68.41 Body mass index [BMI] 40.0-44.9, adult
CPT/HCPCS: 38531; 11626; 15240; 78195; 88305; 88342; A9270; A9520; J0690; J1100; J2250; J2405; J2704; J3010; J7120

== ENCOUNTER 2023-09-20 14:15 | Outpatient (CLI) | payer OTHER, SELFPAY ==
[2023-09-20 15:21] LABS: Basophils Absolute Auto 0.1 K/mm3 (0.0-0.1); Basophils Percent Auto 0.6 % (0.2-1.2); Eosinophils Absolute Auto 0.1 K/mm3 (0-0.3); Eosinophils Percent Auto 1.5 % (0-4.4); Hematocrit 42.2 % (37.0-47.0); Hemoglobin 13.9 g/dL (12.0-15.0); Immature Granulocyte Absolute 0.01 K/mm3 (0.00-0.031); Immature Granulocyte Percent A 0.1 % (0-0.5); Lymphocytes Absolute Auto 3.31 K/mm3 (0.9-3.2); Lymphocytes Percent Auto 41.9 % (18.3-44.2); Mean Corpuscular HGB Conc 32.9 g/dl (32-36); Mean Corpuscular Hemoglobin 29.4 pg (26-34); Mean Corpuscular Volume 89.4 fl (80-100); Mean Platelet Volume 10.9 fl (7.4-10.4); Monocytes Absolute Auto 0.7 K/mm3 (0.1-0.6); Monocytes Percent Auto 8.4 % (2.6-8.5); Neutrophils Absolute Auto 3.8 K/mm3 (1.3-6.7); Neutrophils Percent Auto 47.5 % (45.5-73.1); Platelet Count Result 262 k/mm3 (150-375); Red Blood Count 4.72 M/mm3 (4.2-5.4); Red Cell Distribution Width 11.7 % (11.5-14.5); White Blood Count 7.9 K/mm3 (4.5-10.0)
[2023-09-20 15:50] LABS: Prothrombin Time 14.1 Seconds (11.1-14.7)
[2023-09-20 15:51] LABS: Partial Thromboplastin Time 29.9 SECONDS (22.3-36.8)
== END 2023-09-20 14:16 | disposition home or self-care (01) ==
LOC: ANHLAB 14:16
PROVIDERS: Visit Provider Surgery
DX: Z01.818 Encounter for other preprocedural examination (principal); D48.5 Neoplasm of uncertain behavior of skin
CPT/HCPCS: 36415; 85025; 85610; 85730

== ENCOUNTER 2023-09-26 01:50 | Day surgery (SDC) | payer OTHER, SELFPAY ==
[2023-09-19 13:29] VITALS: BMI 44.1
--- NOTE | 2023-09-19 13:36 | PC.NURSE ---
Report to the Outpatient Waiting Room, entrance under the green pavilion located off [facility], at time _1300_ on date _09/26/23_. Planned Procedure Time: _1500__. Time changes happen often and if your time is changed the preop area will call you the afternoon before. - You and your visitor will be asked to self-screen and do not enter if you have any COVID symptoms. - A mask is optional within the hospital at this time. Patients may have clear liquids (water, carbonated beverages, clear teas, apple juice) until 3 hours prior to surgery with a maximum of 20 ounces. - No food from midnight until time of surgery - Infants may have breast milk until 4 hours before surgery, formula 6 hours prior to surgery. - Children will be allowed to drink immediately following surgery. If applicable, please bring a bottle or sippy cup to assist with drinking. Juice, water, soda, and popsicles are readily available. For infants on formula, please bring formula the day of surgery. Pacifiers are allowed. Take the following medications with a SIP of water the morning of surgery: PAIN PILL IF NEEDED DO NOT STOP ANY OF YOUR OTHER PRESCRIPTION MEDICATIONS PRIOR TO SURGERY ?EXCEPT THE FOLLOWING Medications to discontinue per physician IBUPROPHEN Date to take last dose Please no make-up, nail swiss, hairspray, perfume, deodorant, or body powder the day of surgery. No jewelry (including any body piercings) or valuables the day of surgery, leave them at home. Please take a shower or bath the night before, or the morning of, surgery with HIBICLENS antibacterial soap. Wear comfortable, loose fitting clothing. Children are encouraged to wear pajamas. - Jewelry must be removed prior to entering the operating room. Rings and piercings that are not removed may be cut off. - The hospital will not accept responsibility for valuables. - Please leave all valuables, including medications, at home the day of surgery. If you are going home after surgery, a licensed marine engine driver must drive you home. - NO public transportation without another adult if you receive anesthesia. - We recommend that an adult stay with you for 24 hours following discharge. - We also recommend that you do not drive, make important decision, drink alcoholic beverages, or take any drugs that were not prescribed by your health care provider for at least 24 hours after your discharge time. For Pediatric surgeries, we recommend two adults accompany the child home. Follow any additional instructions given to you from your surgeon. If you or anyone in your household have experienced Covid symptoms in the past week, please notify your surgeon or the nurse liaison at the phone number below for possible testing. Telephone instructions given to ____MIR _and asked if any additional questions and then verbalized understanding. Patient advised to call surgeon office or pre surgery nurse liaison [phone] if any additional questions.
--- NOTE | ~2023-09-26 | XR_ITS ---
XR chest port-a-cath/central 09/26/2023 14:27 Indication: Insertion of portacatheter Procedure: AP portable chest Comparison: No prior studies for comparison. Findings: Portacatheter tip in the SVC. Size normal. No focal air space disease, pulmonary edema, ple ural effusion or suspected pneumothorax. Impression: 1: No acute cardiopulmonary disease. Reviewed, dictated and finalized at location B. 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
--- NOTE | ~2023-09-26 | XR_ITS ---
XR fl guide central line place 09/26/2023 14:10 Indication: Right portacatheter placement Procedure: 2 views right chest. 20 seconds of fluoroscopy Comparison: No prior studies for comparison. Findings: Right IJ portacatheter tip in the SVC. Please refer to procedural report for details. Impression: 1: Portacatheter tip in the SVC. Reviewed, dictated and finalized at location B. 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
--- NOTE | 2023-09-26 08:23 | WPDANESEPPF ---
Anes - Initial Pre Proc Eval Procedure: Operation Date: 09/26/23 13:30 Proposed Procedures p Insertion Roxanne Cath - Oz Harris DO Date/Time: 09/26/23 08:23 Surgeon: Oz Harris DO Pre Op Diagnosis: malignant melanoma lower extremity Patient Data Age: 23 Gender: F Height: 1.7 m Weight: 128 kg Allergies Allergy/AdvReac Type Severity Reaction Status Date / Time No Known Allergies Allergy Verified 09/19/23 13:27 Home Medications Medication Instructions Recorded Confirmed Type norethindrone 1 mg-ethinyl 1 tablet PO DAILY 08/16/23 09/19/23 History estradiol 20 mcg (24)-iron 75 mg (4) tablet () acetaminophen 300 mg-codeine 15 mg 1 tablet PO Q6H PRN pain #14 tabs 08/25/23 09/19/23 Rx tablet ibuprofen 200 mg tablet 600 mg PO Q6H PRN Pain 09/19/23 09/19/23 History Patient hx anesthesia problems: none Family hx anesthesia problems: none Results Review: All pre-operative results and documents have been reviewed as part of the pre-operative evaluation. [facility] Past Medical History Medical History BMI 40.0-44.9, adult Depression No active medical problems Suppression, menstruation Surgical History Surgical History History of appendectomy Family History Family History Father No problems noted. Mother No problems noted. Sibling No problems noted. Other Diabetes mellitus Heart disease Social History Social History Smoking packs per day: 0.5 Smoking cigarettes per day: 10.0 Years smoked: 7 Smoking pack-years: 3.50 Smoking status: Former smoker Tobacco type: cigarettes Second hand tobacco smoke exposure: Yes Smoking end date: 12/17/22 Alcohol intake: current Alcohol use details: RARE Substance use: current Substance use type: marijuana Other substance usage details: 2 TIMES PER WEEK, NONE IN THE LAST 2 MONTHS Lack of Transportation: No Lack of Food: Never True Current Housing: I Have Housing Concerned About Future Housing: No Difficulty Paying Gas/Electric Bills: No Difficulty Paying for Meds: No Currently Unemployed: No Education: High School Diploma/GED Difficulty w/ Childcare or Family Care: No Living arrangements: with family Occupation/Education: occupation Additional occupation/education comments: [employer] Gender identity (if verbalized by the patient): Female Sexual Orientation (if Verbalized by the Patient): Straight or Heterosexual Spiritual care concerns: No Anes - Eval Final PreProcedure Day of Procedure 09/26/23 08:23 Patient weight: morbidly obese Heart: regular rate and rhythm Lungs: clear to auscultation Airway: Mallampati scale class II Neurological: alert and oriented Last oral intake: >/= 8 hours ASA classification: III Emergent: no Anesthetic plan: proceed Anesthesia type and monitoring: general GIVS and standard monitoring Results Review: All pre-operative results and documents have been reviewed as part of the pre-operative evaluation. Informed Consent: The patient's anesthetic plan and its attendant risks and benefits were discussed with the patient/family/POA. Questions were solicited and answers provided to the satisfaction of the patient/family/POA.
[2023-09-26 11:50] VITALS: BP 157/88; PULSE 93; RESP 20; TEMP 36.6; O2SAT 98
--- NOTE | 2023-09-26 11:57 | PM.IMHP ---
H&P: HPI History of Present Illness Date/Time: 09/26/23 11:57 Chief Complaint: malignant melanoma Narrative: 23 yo woman presents for portacath placement. She has a recent finding of malignant melanoma on her foot with lymphatic spread. She is in need of port placement to start chemotherapy. Review of Systems Review of Systems: All systems reviewed & are unremarkable except as noted in HPI and below Constitutional: Constitutional: Denies chills, Denies fever(s), Denies headache(s) and Denies weight loss Eyes: Eyes: Denies change in vision ENT: Denies dizziness, Denies headache(s), Denies neck mass and Denies throat swelling Cardiovascular: Cardiovascular: Denies chest pain, Denies lightheadedness and Denies dyspnea Respiratory: Respiratory: Denies cough, Denies dyspnea and Denies wheezing Gastrointestinal: Gastrointestinal: Denies abdominal pain, Denies change in bowel habits, Denies nausea and Denies vomiting Genitourinary: Genitourinary: Denies hematuria and Denies dysuria Musculoskeletal: Musculoskeletal: Reports as per HPI Integumentary/Breasts: Skin/Breast: Reports as per HPI Neurologic: Denies dizziness and Denies headache(s) Allergic/Immunologic: Allergic/Immunologic: Denies throat swelling and Denies wheezing PMFSH Past Medical History Medical History BMI 40.0-44.9, adult Depression No active medical problems Suppression, menstruation Surgical History Surgical History History of appendectomy Family History Family History Father No problems noted. Mother No problems noted. Sibling No problems noted. Other Diabetes mellitus Heart disease Social History Social History Smoking packs per day: 0.5 Smoking cigarettes per day: 10.0 Years smoked: 7 Smoking pack-years: 3.50 Smoking status: Former smoker Tobacco type: cigarettes Second hand tobacco smoke exposure: Yes Smoking end date: 12/17/22 Alcohol intake: current Alcohol use details: RARE Substance use: current Substance use type: marijuana Other substance usage details: 2 TIMES PER WEEK, NONE IN THE LAST 2 MONTHS Lack of Transportation: No Lack of Food: Never True Current Housing: I Have Housing Concerned About Future Housing: No Difficulty Paying Gas/Electric Bills: No Difficulty Paying for Meds: No Currently Unemployed: No Education: High School Diploma/GED Difficulty w/ Childcare or Family Care: No Living arrangements: with family Occupation/Education: occupation Additional occupation/education comments: [employer] Gender identity (if verbalized by the patient): Female Sexual Orientation (if Verbalized by the Patient): Straight or Heterosexual Spiritual care concerns: No Meds Home Medications and Allergies Home Medications Medication Instructions Recorded Confirmed Type norethindrone 1 mg-ethinyl 1 tablet PO DAILY 08/16/23 09/19/23 History estradiol 20 mcg (24)-iron 75 mg (4) tablet () acetaminophen 300 mg-codeine 15 mg 1 tablet PO Q6H PRN pain #14 tabs 08/25/23 09/19/23 Rx tablet ibuprofen 200 mg tablet 600 mg PO Q6H PRN Pain 09/19/23 09/19/23 History Allergies Allergy/AdvReac Type Severity Reaction Status Date / Time No Known Allergies Allergy Verified 09/19/23 13:27 Exam Const: General: no acute distress and alert Orientation/consciousness: patient oriented x3 HENMT: Head: normocephalic and atraumatic Ears: hearing grossly normal bilaterally Face/Nose/Sinus: Normal nares present Mouth: Yes Normal oral and palatal mucosa present Eyes: Periorbital: periorbital findings normal Sclera: sclerae normal EOM: EOMs intact bilaterally Neck: Neck: normal visual inspection, no lymphadenopathy and tra
--- NOTE | 2023-09-26 12:09 | WPDHPUPDATE1 ---
History and Physical Update Update Date/Time: 09/26/23 12:09 History and Physical has been reviewed, including an updated exam of the patient. There are NO changes in the patient's condition. Risks, benefits, and alternatives have been discussed and questions answered. Patient agrees to proceed with procedure.
[2023-09-26] MEDS: LACTATED RINGERS 1,000 ML 30 ML IV CONT (12:10)
[2023-09-26] MEDS: KETOROLAC 15 MG/ML VIAL (*BKC) IV PUSH (12:15)
--- NOTE | 2023-09-26 13:05 | WPDANESEPPF ---
Anes - Initial Pre Proc Eval Procedure: Operation Date: 09/26/23 13:30 Proposed Procedures p Insertion Roxanne Cath - Oz Harris DO Date/Time: 09/26/23 13:05 Surgeon: Oz Harris DO Pre Op Diagnosis: malignant melanoma lower extremity Patient Data Age: 23 Gender: F Height: 1.7 m Weight: 126.9 kg Last Vital Signs Temp 97.9 F 09/26/23 11:50 Pulse 93 09/26/23 11:50 Resp 20 09/26/23 11:50 BP 157/88 H 09/26/23 11:50 Pulse Ox 98 09/26/23 11:50 O2 Del Method Room Air 09/26/23 11:50 Allergies Allergy/AdvReac Type Severity Reaction Status Date / Time No Known Allergies Allergy Verified 09/19/23 13:27 Home Medications Medication Instructions Recorded Confirmed Type norethindrone 1 mg-ethinyl 1 tablet PO DAILY 08/16/23 09/19/23 History estradiol 20 mcg (24)-iron 75 mg (4) tablet () acetaminophen 300 mg-codeine 15 mg 1 tablet PO Q6H PRN pain #14 tabs 08/25/23 09/19/23 Rx tablet ibuprofen 200 mg tablet 600 mg PO Q6H PRN Pain 09/19/23 09/19/23 History Patient hx anesthesia problems: none Family hx anesthesia problems: none Results Review: All pre-operative results and documents have been reviewed as part of the pre-operative evaluation. [facility] Past Medical History Medical History BMI 40.0-44.9, adult Depression No active medical problems Suppression, menstruation Surgical History Surgical History History of appendectomy Family History Family History Father No problems noted. Mother No problems noted. Sibling No problems noted. Other Diabetes mellitus Heart disease Social History Social History Smoking packs per day: 0.5 Smoking cigarettes per day: 10.0 Years smoked: 7 Smoking pack-years: 3.50 Smoking status: Former smoker Tobacco type: cigarettes Second hand tobacco smoke exposure: Yes Smoking end date: 12/17/22 Alcohol intake: current Alcohol use details: RARE Substance use: current Substance use type: marijuana Other substance usage details: 2 TIMES PER WEEK, NONE IN THE LAST 2 MONTHS Lack of Transportation: No Lack of Food: Never True Current Housing: I Have Housing Concerned About Future Housing: No Difficulty Paying Gas/Electric Bills: No Difficulty Paying for Meds: No Currently Unemployed: No Education: High School Diploma/GED Difficulty w/ Childcare or Family Care: No Living arrangements: with family Occupation/Education: occupation Additional occupation/education comments: [employer] Gender identity (if verbalized by the patient): Female Sexual Orientation (if Verbalized by the Patient): Straight or Heterosexual Spiritual care concerns: No Anes - Eval Final PreProcedure Day of Procedure 09/26/23 13:05 Patient weight: morbidly obese Heart: regular rate and rhythm Lungs: clear to auscultation Airway: Mallampati scale class II Neurological: alert and oriented Last oral intake: >/= 8 hours ASA classification: III Emergent: no Anesthetic plan: proceed Anesthesia type and monitoring: general LMA and standard monitoring Results Review: All pre-operative results and documents have been reviewed as part of the pre-operative evaluation. Informed Consent: The patient's anesthetic plan and its attendant risks and benefits were discussed with the patient/family/POA. Questions were solicited and answers provided to the satisfaction of the patient/family/POA.
[2023-09-26] MEDS: ceFAZolin 3 GM/D5W 100 ML 100 ML IVPB (13:17)
[2023-09-26] MEDS: LIDO 1%/EPINEPHRINE 1:100,000 50 ML VIAL 20 ML INFILTRATE (13:38)
[2023-09-26] MEDS: HEPARIN SODIUM, PORCINE 10,000 UNITS/10 ML VIAL 3000 UNITS IV PUSH (13:39)
[2023-09-26] MEDS: HEPARIN SODIUM 5,000 UNITS/ML VIAL 5000 UNITS IRRIGATION (13:40)
--- NOTE | 2023-09-26 14:10 | W.PM.PROC2 ---
Procedure Note - Detailed Date of Procedure 09/26/23 Pre-op Diagnosis malignant melanoma lower extremity Post-op Diagnosis Same Procedure Performed Right Internal Jugular tunneled Port-a-Cath placement using ultrasound and fluoroscopic guidance Surgeon Oz Harris, DO Anesthesia MAC and Local (0.5% bupivicaine with epinephrine) Indications This is a 23-year-old woman who presented with a recent finding of malignant melanoma on her foot. A sentinel lymph node biopsy was performed and this did show evidence of metastatic spread to an inguinal lymph node. She was then referred to Oncology is in need a port placement to start chemotherapy. Discussions were made with the patient about treatment options and decision was made to proceed with Port-A-Cath placement. Findings Right internal jugular Port-A-Cath placement was performed. SonoSite ultrasound was used to identify the right internal jugular vein as a compressible vessel just lateral to the pulsatile carotid artery. The vein was accessed with an 18 gauge needle under ultrasound guidance. Dark nonpulsatile blood was aspirated. Fluoroscopy was then used to guide advancement of the guidewire followed by dilator sheath. The final fluoroscopic images demonstrated the catheter tip in the distal SVC and no kinks along its path. Description of Procedure Procedure as well as risks, benefits, and alternatives were discussed with patient. Written consent was obtained and placed in chart prior to procedure. Patient was brought back to surgical suite. Was placed supine on operating table. Time-out was done confirm patient procedure. IV sedation was then administered by the Anesthesia Department. The chest and neck area was prepped and draped in sterile fashion using chlorhexidine prep. Patient was placed in Trendelenburg position. SonoSite ultrasound was used to identify the right internal jugular vein. It was visualized as a compressible vessel just lateral to the carotid artery. 1% lidocaine with epinephrine was infiltrated directly over the vessel under ultrasound guidance. An 18 gauge introducer needle was then advanced under ultrasound guidance directly into the right internal jugular vein. Dark nonpulsatile blood was aspirated. A 0.035 in guidewire was then advanced through the needle under fluoroscopic guidance. The guidewire was visualized advancing all the way down into the superior vena cava. 1% lidocaine with epinephrine was then infiltrated on the right anterior chest and along the tract up to the guidewire insertion site. A 3 cm incision was made with a 15 blade scalpel, and electrocautery was then used for dissection down through the subcutaneous tissue to the pectoral fascia. A pocket was created just inferior to the incision using blunt dissection. A small yamilka incision was then also made at the insertion site at the neck. The tunneler was then advanced from the chest incision up to the neck incision and the catheter tubing was brought up through this tract. The dilator and sheath were then advanced over the guidewire under fluoroscopic visualization. The dilator and guidewire were then removed leaving the sheath in place. The catheter tubing was then advanced through the sheath under fluoroscopic guidance. The sheath was unsnapped and carefully peeled away. The catheter tubing was released underneath the neck incision. Fluoroscopy was used to confirm proper placement of the catheter tubing and no kinks along its path. The catheter was then cut to proper length and secured to the port. The port was then accessed with a Martin needle and aspirated and flushed with heparinized saline. The port function with ease. The port was then hep-locked with Hep-Lock solution. The port was then placed within the pocket that was created, and was secured to the fascia using 3 0 Prolene simple interrupted sutures. The patient was flattened out in bed. Gilma's fascia was reapproximated using 3 0 Vi
[2023-09-26 14:12] VITALS: BP 119/67; PULSE 98; RESP 16; O2SAT 96
[2023-09-26 14:45] VITALS: BP 134/69; PULSE 85; RESP 16; O2SAT 97
[2023-09-26 15:15] VITALS: BP 146/82; PULSE 92; RESP 16
== END 2023-09-26 15:33 | disposition home or self-care (01) ==
PROVIDERS: Visit Provider Surgery
PROC: (CPT 36561; principal; 2023-09-26 13:30)
DX: C43.72 Malignant melanoma of left lower limb, including hip (principal); C77.9 Secondary and unspecified malignant neoplasm of lymph node, unspecified; Z87.891 Personal history of nicotine dependence
CPT/HCPCS: 36561; 77001; C1788; J0690; J1644; J1885; J2250; J2704; J3010; J7030; J7120

== ENCOUNTER 2023-09-27 13:41 | Outpatient (CLI) | payer OTHER, SELFPAY ==
--- NOTE | ~2023-09-27 | PE_ITS ---
EXAMINATION: PET skull to mid thigh DATE: 09/27/2023 16:43 INDICATION: Malignant melanoma of the left foot TECHNIQUE: Blood glucose level was 90 mg/dL. 11.255 mCi of 18-fluorodeoxyglucose (18-FDG) was adminis tered i.v. Low dose computed tomography (CT) images of the whole body were acquired for attenuation c orrection and anatomic localization. Positron emission tomography (PET) images were acquired in the s lenny distribution beginning 76 minutes after injection. The dose-length product (DLP) was 1699.85 mGy- cm. COMPARISON: None FINDINGS: Head/neck: No abnormal FDG uptake is identified. There is mild FDG uptake in the oral cavity, the ext raocular muscles, optic nerves, and tonsils without suspicious CT correlate which is likely physiolog ic Chest: No abnormal FDG uptake is identified. There is mild atelectasis of the lungs. No pleural effus ion or pneumothorax. A right internal jugular Port-A-Cath ends with its tip in the distal superior ve na cava. No pathologically enlarged thoracic lymph nodes are identified. The heart size is normal. Abdomen/pelvis/proximal thighs: Physiologic FDG activity is present in the bowel and urinary tract. N o abnormal FDG uptake is identified. The liver, spleen, pancreas, gallbladder, and adrenal glands are normal. The kidneys are unremarkable. No pathologically enlarged abdominal or pelvic lymph nodes are identified. No free intraperitoneal gas or evidence of bowel obstruction. Musculoskeletal: No abnormal FDG uptake is identified. Lower extremities: There is mild FDG uptake in the dorsal aspect of the left foot, consistent with hi story of melanoma resection and skin graft. No suspicious FDG uptake is identified. There is mild FDG uptake in the left inguinal region, consistent with history of left inguinal sentinel lymph node dis section. IMPRESSION: 1. Changes of melanoma resection and stent grafting of the left foot and left inguinal lymph node dis section without evidence of metastatic disease. Reviewed, dictated and finalized at location F. VE SETTER IMPRESSION: 1. Changes of melanoma resection and stent grafting of the left foot and left i nguinal lymph node dissection without evidence of metastatic disease.
[2023-09-27 14:05] LABS: Glucose Point of Care 90 mg/dl (65-105)
== END 2023-09-27 13:42 | disposition home or self-care (01) ==
LOC: ANHIMG 13:43
PROVIDERS: PCP Family Medicine; Visit Provider Internal Medicine Hematology & Oncology
DX: C43.70 Malignant melanoma of unspecified lower limb, including hip (principal)
CPT/HCPCS: 78815; A9552

== ENCOUNTER 2024-01-31 08:00 | Outpatient (RCR) | payer OTHER, SELFPAY ==
--- NOTE | 2024-01-04 09:56 | OPREHPOC ---
Outpatient Therapy Plan of Care This is a Multidisciplinary Plan of Care that may contain components documented by all disciplines (PT, OT, and ST.) PT Problem 1 PT Problem #1 Knowledge Deficit PT Goal 1 Goal 1* indep with compression garments 2* indep with lymphedema management PT Problem 2 PT Problem #2 Impaired Lymphatic System PT Goal 1 Goal decrease lymphedema of L LE, to decrease pain and maintain le* decrease pain report to 2/10 at worst 2* circumferential measurement of LE to 68 cm 810 cm 3* no fibrotic tissue with palpation over medial, distal thigh 4* good mobility of dorsum of foot tissue/surgical site 5* good mobility of anterior hip/groin incision 6* pt obtain appropriate compression garments to manage lymphedema
--- NOTE | 2024-01-04 09:56 | PTOPEVAL1 ---
Assessment and note entered by Genny Juarez, PT, CLT Evaluation Information Assessment Status Evaluation Diagnosis L LE lymphedema Onset Oct 2023 Subjective Information started having more swelling in leg in October; Aug 2023 had groin lymph node biopsy and biopsy of L foot malignant melanoma; to start to chemotherapy-- working on insurance auth to start. 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 Reported Pain Level Pain Score Self Report L LE Additional Pain Score Comments range of 0-4/10 in the past week: throb and nuisance feeling over knee and ankle, sometimes hip; increase pain: up on feet alot, not have compression socks on Assessment PT Clinical Summary Chris has the diagnosis of L LE lymphedema, s/p malignant melanoma L foot, with removal and groin sentinel lymph node removal. She has been wearing over the counter compression socks and knee brace to help manage her swelling. 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 She reports swelling over foot and ankle varies, and some in knee and thigh. She will be having chemotherapy--but not yet scheduled. With the evaluation, the dorsum of her foot wound is healed with slight decrease of mobility of tissue; with the circumferential measurements of R/L LE are within 2 cm--it is AM and she did not work overnight, so legs are not as big as usually are after working; there is some fibrotic tissue over medial distal thigh; the compression socks and knee brace she is wearing are leaving indentations over her leg and she is sleeping in them. Skilled PT services are indicated for lymphedema treatment and education to manage her lymphedema. Treatment to include compression pump and garment recommendations. Plan of Care Interventions Intermittent Compression pump,Manual Lymph Drainage, Manual Therapy,Patient Education,
--- NOTE | 2024-01-20 08:48 | PCPTNOTE ---
pt did not show for today's appt; called and left voice message reminder for next appt time.
--- NOTE | 2024-03-19 13:08 | PTOPDC ---
Assessment and note entered by Genny Juarez, PT Discharge Information Assessment Status Discharge - Pt Not Present Diagnosis L LE lymphedema Onset Oct 2023 Assessment PT Clinical Summary Dayanara has received 3 PT sessions. She did not show for one appointment. She then canceled her therapy due to insurance issues. Education was completed for lymphedema care: self manual lymph drainage, compression garment and info issued for home compression pump. The goals were not addressed. Discharge PT services. Plan of Care PT Services Indicated No
== END 2024-03-19 13:46 | disposition home or self-care (01) ==
LOC: ANHPT 08:00
PROVIDERS: PCP Family Medicine; Visit Provider Physician Assistant Surgical
DX: C43.9 Malignant melanoma of skin, unspecified (principal); D48.5 Neoplasm of uncertain behavior of skin
CPT/HCPCS: 97016; 97140; 97161; 97530; 99199

== ENCOUNTER → 2024-02-20 12:11 | Outpatient (REF) | payer OTHER, SELFPAY | LOC: ANHLAB 12:11 | PROVIDERS: PCP Family Medicine; Visit Provider Physician Assistant Surgical | DX: C43.72 Malignant melanoma of left lower limb, including hip (principal) | CPT/HCPCS: 88305 ==

== ENCOUNTER 2024-04-03 13:33 | Outpatient (CLI) | payer OTHER, SELFPAY ==
--- NOTE | ~2024-04-03 | PE_ITS ---
EXAMINATION: PET skull to mid thigh DATE: 04/03/2024 16:21 INDICATION: Malignant melanoma of lower extremity. TECHNIQUE: Blood glucose level was 113 mg/dL. 8.586 mCi of 18-fluorodeoxyglucose (18-FDG) was adminis tered i.v. Low dose computed tomography (CT) images were acquired from the skull vertex to the feet f or attenuation correction and anatomic localization. Automated exposure control was employed. Dose-le ngth product (DLP) was 1863 mGy-cm. Positron emission tomography (PET) images were acquired in the [facility] distribution. COMPARISON: PET/CT 09/27/2023 FINDINGS: Head/neck: There are no pathologically enlarged lymph nodes. There is a right internal jugular port w ith tip in proximal right atrium. Chest: There is no pneumonia or pleural effusion. The heart size is normal. No pericardial effusion. There are no pathologically enlarged lymph nodes. Abdomen/pelvis/lower extremities: There is diffuse hepatic steatosis. The gallbladder, spleen, pancre as, adrenal glands, and kidneys are normal. There are no dilated loops of bowel. There is no free int raperitoneal fluid. There are no pathologically enlarged lymph nodes. There are surgical changes at t he dorsum of left foot. There are surgical changes of left inguinal lymph node resection with increas ed activity, consistent with inflammation. In the left branham and anteromedial left thigh, there are mu ltiple subcutaneous masses with increased activity. For example, a subcutaneous mass in left branham dee sures 10 x 8 mm with maximum SUV of 11.7. Note that there is spatial misregistration between the PET and CT images. IMPRESSION: 1. Multiple subcutaneous masses in left branham and anteromedial left thigh with increased activity, con sistent with metastatic disease. Reviewed, dictated and finalized at location A. IMPRESSION: 1. Multiple subcutaneous masses in left branham and anteromedial left thigh with i ncreased activity, consistent with metastatic disease.
[2024-04-03 14:37] LABS: Glucose Point of Care 113 mg/dl (65-105)
== END 2024-04-03 13:34 | disposition home or self-care (01) ==
LOC: ANHIMG 13:35
PROVIDERS: PCP Family Medicine; Visit Provider Internal Medicine Hematology & Oncology
DX: C43.72 Malignant melanoma of left lower limb, including hip (principal)
CPT/HCPCS: 78815; A9552

== ENCOUNTER 2024-05-29 08:26 | Outpatient (CLI) | payer OTHER, SELFPAY ==
--- NOTE | ~2024-05-29 | MR_ITS ---
EXAMINATION: MR brain/brain stem wo/w con DATE: 05/29/2024 09:11 INDICATION: Metastatic melanoma TECHNIQUE: Magnetic resonance imaging (MRI) of the brain and brainstem was performed without and with 20 mL Multihance intravenous contrast. Sequences included sagittal and axial T1-weighted SE, axial d iffusion-weighted FS SE, axial 3D SWAN, axial T2-weighted FLAIR, and axial T2-weighted FSE. Postcontr ast axial and coronal T1-weighted SE was obtained. Apparent diffusion coefficient (ADC) maps were cre ated. COMPARISON: PET/CT dated 04/03/2024 and 09/27/2023 FINDINGS: There are no areas of restricted diffusion to suggest acute infarction. No intracranial hemorrhage or abnormal intracranial mass lesion. Nonspecific region of increased fluid signal extending 3 cm crani ocaudally and measures approximate 1.5 cm in transaxial orthogonal dimensions along a gyrus at the me dial aspect of the left parietal lobe which is without evident encephalomalacia or swelling and witho ut associated abnormal enhancing lesion on postcontrast imaging. There appears be a subtle photopenic defect in the background of the normal hypermetabolic activity in the brain at this location on both the prior PET/CT studies. No other abnormal T2 hyperintense lesions. There are no intraparenchymal s ignal abnormalities seen on the other pulse sequences. The ventricles are symmetric and normal in siz e. There are no abnormal extra-axial fluid collections. Flow voids are seen in the cerebral arteries on the T2-weighted sequences consistent with their expected patency. Prominent mucous retention cyst in the right maxillary sinus. Visualized orbits and soft tissues are unremarkable. There are no areas of abnormal enhancement on the post contrast images. IMPRESSION: 1. Prominent nonspecific increased T2 signal extending 3 cm craniocaudally along a gyrus at the media l right parietal lobe without evident encephalomalacia, mass effect or enhancement an which appears l ikely to been present and associated with decreased metabolic activity on PET CT studies dating back to 09/27/2023. This would argue against a malignant or acute infectious etiology. Would consider low- grade neoplasm, focal cortical dysplasia, sequela of old infarct or infection or demyelinating disea se. 2. Otherwise unremarkable brain MR with no enhancing lesions to suggest metastatic disease. Reviewed, dictated and finalized at location A. IMPRESSION: 1. Prominent nonspecific increased T2 signal extending 3 cm craniocaudally eileen g a gyrus at the medial right parietal lobe without evident encephalomalacia, m ass effect or enhancement an which appears likely to been present and associate d with decreased metabolic activity on PET CT studies dating back to 09/27/2023 . This would argue against a malignant or acute infectious etiology. Would cons ider low-grade neoplasm, focal cortical dysplasia, sequela of old infarct or i nfection or demyelinating disease. 2. Otherwise unremarkable brain MR with no enhancing lesions to suggest metasta tic disease.
== END 2024-05-29 08:27 | disposition home or self-care (01) ==
PROVIDERS: Visit Provider Internal Medicine
DX: C43.9 Malignant melanoma of skin, unspecified (principal); R93.0 Abnormal findings on diagnostic imaging of skull and head, not elsewhere classified
CPT/HCPCS: 70553; A9577

== ENCOUNTER 2024-06-26 20:52 | Emergency (ER) | payer OTHER, SELFPAY ==
[2024-06-26 20:57] VITALS: BP 136/86; PULSE 125; RESP 16; TEMP 36.3; O2SAT 96
[2024-06-26 22:08] LABS: Hematocrit 47.4 % (37.0-47.0); Hemoglobin 16.7 g/dL (12.0-15.0); Mean Corpuscular HGB Conc 35.2 g/dl (32-36); Mean Corpuscular Hemoglobin 29.9 pg (26-34); Mean Corpuscular Volume 84.9 fl (80-100); Mean Platelet Volume 9.9 fl (7.4-10.4); Platelet Count Result 382 k/mm3 (150-375); Red Blood Count 5.58 M/mm3 (4.2-5.4); Red Cell Distribution Width 12.9 % (11.5-14.5)
[2024-06-26 22:18] LABS: Alanine Aminotransferase 58 U/L (6-35); Alkaline Phosphatase 69 U/L (38-126); Anion Gap 16 mmol/L (4-12); Aspartate Amino Transferase 24 U/L (14-36); Bilirubin,Total 0.6 mg/dL (0.2-1.3); Blood Urea Nitrogen 13 mg/dL (7-17); Carbon Dioxide 17 mmol/L (22-30); Chloride 99 mmol/L (98-107); Estimated CRCL calculation 96 ml/min; Estimated Glomerular Filt Rate > 60; Glucose 137 mg/dL (65-110); Lipase 60 U/L (23-300); Potassium 3.4 mmol/L (3.4-5.0); Sodium 132 mmol/L (137-145)
[2024-06-26 22:19] LABS: Total Cells Counted 100
[2024-06-26 22:20] LABS: Band Neutrophils Percent 15 % (0-6); Eosinophils Absolute Manual 0.27 K/mm3 (0.02-0.50); Eosinophils Percent Manual 3 % (0-4); Lymphocytes Absolute Manual 1.44 K/mm3 (1.1-4.5); Lymphocytes Percent Manual 16 % (18-44); Monocytes Absolute Manual 0.99 K/mm3 (0.1-0.90); Monocytes Percent Manual 11 % (3-9); Neutrophils Percent Manual 55 % (46-73); Nucleated Red Blood Cells 1 %; Platelet Estimate Slightly Increased (Adequate); Schistocytes None Seen
[2024-06-26] MEDS: SODIUM CHLORIDE 0.9% IV 1,000 ML 999 ML IV CONT (22:58)
[2024-06-26] MEDS: ONDANSETRON INJ 4 MG/2 ML VIAL IV PUSH (23:01)
[2024-06-26] MEDS: FAMOTIDINE 20 MG/2 ML VIAL IV PUSH (23:01)
--- NOTE | 2024-06-26 23:05 | ED.NAVMDI ---
HPI - Nausea/Vomiting/Diarrhea General Chief complaint: Nausea/Vomiting/Diarrhea Stated complaint: n/v/d, chemo pt Time Seen by Provider: 06/26/24 22:15 History of Present Illness HPI Narrative: 24-year-old female with a history of melanoma to her left lower extremity currently on chemotherapy presents to the emergency department for nausea, vomiting and diarrhea. Patient states she had her last chemo treatment on 06/12/2024 and since then has been having several episodes of diarrhea which is not abnormal for her. She states normally her diarrhea is from her chemotherapy and last approximately 1 week, however this time is lasted 2 weeks. She states yesterday she began having nausea and vomiting which has persisted into today and she has been having difficulty keeping down food and fluids. States she contacted her oncologist's office, Dr. Finley, adult at [facility] and was advised to come to the ED for further evaluation. She reports abdominal pain reports her epigastrium and periumbilical region. also states she had a fever of 101 today and 101 yesterday which resolved on its own. She has been taking ODT Zofran and Imodium with some improvement. Denies dysuria or hematuria. Reports a mild cough. Related Data Allergies Allergy/AdvReac Type Severity Reaction Status Date / Time No Known Allergies Allergy Verified 03/27/24 13:32 Review of Systems Review of Systems: All systems reviewed & are unremarkable except as noted in HPI and below PMFSH Past Medical History Medical History BMI 40.0-44.9, adult Depression No active medical problems Port-A-Cath in place Suppression, menstruation Surgical History Surgical History History of appendectomy Family History Family History Father No problems noted. Mother No problems noted. Sibling No problems noted. Father Malignant neoplasm of prostate Other Diabetes mellitus Heart disease Social History Social History Smoking packs per day: 0.5 Smoking cigarettes per day: 10.0 Years smoked: 7 Smoking pack-years: 3.50 Smoking status: Former smoker Tobacco type: cigarettes Second hand tobacco smoke exposure: Yes Smoking end date: 12/17/22 Alcohol intake: current Alcohol use details: RARE Substance use: former Substance use type: does not use and marijuana Other substance usage details: 2 TIMES PER WEEK, NONE IN THE LAST 2 MONTHS Do You Feel Safe in your Home?: Yes Lack of Transportation: No Lack of Food: Never True Current Housing: I Have Housing Concerned About Future Housing: No Difficulty Paying Gas/Electric Bills: No Difficulty Paying for Meds: No Currently Unemployed: No Education: High School Diploma/GED Difficulty w/ Childcare or Family Care: No Living arrangements: with family Occupation/Education: occupation Additional occupation/education comments: [employer] Gender identity (if verbalized by the patient): Female Sexual Orientation (if Verbalized by the Patient): Straight or Heterosexual Spiritual care concerns: No Exam Narrative: GENERAL: Well-appearing, well-nourished, and in no acute distress. HEAD: Normocephalic, atraumatic. EYES: PERRLA and EOMI. ENT: Nares clear, no rhinorrhea or epistaxis. Mucous membranes Dry NECK: Supple. CHEST: Clear to auscultation. No respiratory distress. HEART: Regular rate and rhythm. No murmur heard. Normal peripheral pulses. ABDOMEN: Quiet bowel sounds. Abdomen soft with tenderness in the epigastrium and periumbilical region. No rebound, guarding or rigidity. No CVA tenderness. EXTREMITIES: Normal range of motion. No edema. SKIN: Warm, dry, no rash. NEURO: No focal deficits. Alert and oriented x3
[2024-06-26 23:07] LABS: Influenza A QL RT-PCR Negative (Negative); Influenza B QL RT-PCR Negative (Negative); SARS-CoV-2 RNA PCR Negative (Negative)
--- NOTE | 2024-06-26 23:18 | ECG_ITS ---
Test Date: 2024-06-26 23:44:42 Measurements Intervals [place] Rate: 89 P: 35 LA: 163 QRS: 16 QRSD: 102 T: 117 QT: 337 QTc: 410 Interpretive Statements SINUS RHYTHM NONSPECIFIC ST & T-WAVE ABNORMALITY No previous ECG available for comparison Electronically Signed On 06-27-2024 15:57:51 CDT by Corbin Petty M.D.
[2024-06-27 00:47] LABS: Pregnancy On Board Control Positive; Urine Pregnancy Test Negative
[2024-06-27 01:12] LABS: Lactic Acid Reflex 1.8 mmol/L (0.7-2.0)
[2024-06-27 01:12] LABS: Add Urine Microscopic? YES; Appearance Urine Clear (Clear); Bacteria Urine Rare /hpf; Bilirubin Urine Negative (Negative); Blood Urine 1+ (Negative); Color Urine Yellow (Yellow); Glucose Urine UA Negative (Negative); Ketones Urine 1+ mg/dL (Negative); Leukocyte Esterase Ur Negative LEU/UL (Negative); Need Manual Microscopic Reviewed; Nitrate Urine Negative (Negative); Non Pathogenic Casts 0-2; Protein Urine 1+ mg/dL (Negative); Specific Grav Ur > 1.045 (1.001-1.035); Squamous Epithelial Cell Urine Few /hpf (Few); Urobilinogen Urine 0.2 mg/dL (<2.0); WBC Urine 0-5 /hpf (0-3); pH Urine 6.5 (5.0-9.0)
[2024-06-27] MEDS: SODIUM CHLORIDE 0.9% IV 1,000 ML 999 ML IV CONT (01:30)
[2024-06-27 01:44] VITALS: BP 130/60; PULSE 97; RESP 18; O2SAT 97
[2024-06-27 02:11] LABS: Toxigenic C. Diff NEGATIVE (NEGATIVE)
[2024-06-27] MEDS: KETOROLAC 15 MG/ML VIAL (*BKC) IV PUSH (02:32)
[2024-06-27 03:15] VITALS: BP 129/74; PULSE 78; RESP 18; O2SAT 98
--- NOTE | 2024-06-27 04:32 | PC.NURSE ---
This RN attempted to get full set of blood cultures on pt. Rn only filled half of green top before the vein blew. David allred and front office secretary ze both attempted to poke for cultures as well and were unsuccessful to fill bottles as well. We got about halfof a bottle in each green tops and sent those down. We sent down what we could get to lab. This RN spoke with Irasema from lab to get approval of blood cultures before starting antibiotics. Irasema down in lab stated we will take what we can get and gave this RN the okay to start antibiotics.
[2024-06-27] MEDS: CEFEPIME 2 GM/NS 50 ML 2 GM/50 ML BAG IVPB (04:45)
[2024-06-27 04:50] VITALS: BP 150/84; PULSE 112; RESP 18; O2SAT 100
[2024-06-27] MEDS: VANCOMYCIN 1,250 MG/NS 250 ML 1,250 MG/250 ML BAG 166.67 MG IVPB ×2 (04:53→06:20)
[2024-06-27] MEDS: LACTATED RINGERS 1,000 ML 999 ML IV CONT (04:53)
[2024-06-27 06:21] VITALS: BP 158/80; PULSE 86; RESP 18; O2SAT 100
== END 2024-06-27 07:10 | disposition short-term general hospital (02) ==
PROVIDERS: Emergency Medicine; Emergency Provider Physician Assistant; PCP Family Medicine
DX: E86.0 Dehydration (principal); D72.825 Bandemia; R59.1 Generalized enlarged lymph nodes; Z20.822 Contact with and (suspected) exposure to COVID-19; C43.72 Malignant melanoma of left lower limb, including hip; Z87.891 Personal history of nicotine dependence; Z79.60 Long term (current) use of unspecified immunomodulators and immunosuppressants; R94.31 Abnormal electrocardiogram [ECG] [EKG]
CPT/HCPCS: 36415; 71046; 74177; 80053; 81001; 81025; 83605; 83690; 85025; 87040; 87045; 87427; 87449; 87493; 87636; 93005; 96361; 96365; 96366; 96374; 96375; 99285; J0692; J1885; J2405; J3370; J7030; J7120; Q9967

== ENCOUNTER 2024-07-16 07:04 | Outpatient (RCR) | payer OTHER, SELFPAY ==
[2024-05-21 13:29] LABS: Basophils Absolute Auto 0.04 K/mm3 (0.00-0.10); Basophils Percent Auto 0.7 % (0.0-1.0); Eosinophils Absolute Auto 0.12 K/mm3 (0.02-0.50); Eosinophils Percent Auto 2.1 % (1.0-6.0); Hematocrit 39.8 % (35.0-49.0); Hemoglobin 13.8 g/dL (12.0-15.0); Immature Granulocyte Absolute 0.01 K/mm3 (0.00-0.00); Immature Granulocyte Percent A 0.2 % (0.0-0.0); Lymphocytes Absolute Auto 2.16 K/mm3 (1.10-4.50); Lymphocytes Percent Auto 38.5 % (18.0-42.0); Mean Corpuscular HGB Conc 34.7 g/dL (32-36); Mean Corpuscular Hemoglobin 30.4 pg (27.0-31.0); Mean Corpuscular Volume 87.7 fL (78.0-102.0); Monocytes Absolute Auto 0.46 K/mm3 (0.10-0.90); Monocytes Percent Auto 8.2 % (2.0-11.0); Neutrophils Absolute Auto 2.82 K/mm3 (1.70-7.20); Neutrophils Percent Auto 50.3 % (50.0-70.0); Platelet Count Result 253 K/mm3 (150-420); Red Blood Count 4.54 M/mm3 (4.20-5.40); Red Cell Distribution Width 11.3 % (11.6-14.4); White Blood Count 5.6 K/mm3 (4.8-10.8)
[2024-05-21 14:29] LABS: Alanine Aminotransferase 45 U/L (14-59); Albumin Level 3.3 g/dL (3.4-5.0); Alkaline Phosphatase 56 U/L (46-116); Anion Gap 7 mmol/L (4-12); Aspartate Amino Transferase 29 U/L (15-37); Bilirubin,Total 0.4 mg/dL (0.00-1.00); Blood Urea Nitrogen 16 mg/dL (7-18); Carbon Dioxide 26 mmol/L (21-32); Chloride 105 mmol/L (98-108); Estimated Glomerular Filt Rate > 60; Glucose 120 mg/dL (70-99); Osmolality Calculated 288 mOsm/kg (285-295); Potassium 3.7 mmol/L (3.5-5.1); Sodium 138 mmol/L (136-145); Total Protein 6.8 g/dL (6.4-8.2)
[2024-06-11 07:17] LABS: Basophils Absolute Auto 0.01 K/mm3 (0.00-0.10); Basophils Percent Auto 0.1 % (0.0-1.0); Eosinophils Absolute Auto 0.18 K/mm3 (0.02-0.50); Eosinophils Percent Auto 2.5 % (1.0-6.0); Hematocrit 40.7 % (35.0-49.0); Hemoglobin 14.3 g/dL (12.0-15.0); Immature Granulocyte Absolute 0.02 K/mm3 (0.00-0.00); Immature Granulocyte Percent A 0.3 % (0.0-0.0); Lymphocytes Absolute Auto 2.74 K/mm3 (1.10-4.50); Lymphocytes Percent Auto 38.6 % (18.0-42.0); Mean Corpuscular HGB Conc 35.1 g/dL (32-36); Mean Corpuscular Hemoglobin 29.9 pg (27.0-31.0); Mean Corpuscular Volume 85.1 fL (78.0-102.0); Mean Platelet Volume 10.2 fl (9.2-11.8); Monocytes Absolute Auto 0.37 K/mm3 (0.10-0.90); Monocytes Percent Auto 5.2 % (2.0-11.0); Neutrophils Absolute Auto 3.78 K/mm3 (1.70-7.20); Neutrophils Percent Auto 53.3 % (50.0-70.0); Platelet Count Result 280 K/mm3 (150-420); Red Blood Count 4.78 M/mm3 (4.20-5.40); Red Cell Distribution Width 10.9 % (11.6-14.4); White Blood Count 7.1 K/mm3 (4.8-10.8)
[2024-06-12 17:24] LABS: Alanine Aminotransferase 58 U/L (14-59); Albumin Level 3.4 g/dL (3.4-5.0); Alkaline Phosphatase 88 U/L (46-116); Aspartate Amino Transferase 27 U/L (15-37); Bilirubin,Total 0.2 mg/dL (0.00-1.00); Blood Urea Nitrogen 13 mg/dL (7-18); Chloride 106 mmol/L (98-108); Estimated Glomerular Filt Rate > 60; Glucose 82 mg/dL (70-99); Osmolality Calculated 295 mOsm/kg (285-295); Potassium 4.1 mmol/L (3.5-5.1); Sodium 143 mmol/L (136-145); Thyroid Stimulating Hormone 0.04 uIU/mL (0.36-3.74); Total Protein 6.6 g/dL (6.4-8.2)
[2024-06-12 19:05] LABS: Anion Gap 10 mmol/L (4-12); Carbon Dioxide 27 mmol/L (21-32)
[2024-07-16 07:22] LABS: Basophils Absolute Auto 0.01 K/mm3 (0.00-0.10); Basophils Percent Auto 0.1 % (0.0-1.0); Eosinophils Absolute Auto 0.03 K/mm3 (0.02-0.50); Eosinophils Percent Auto 0.2 % (1.0-6.0); Hemoglobin 12.9 g/dL (12.0-15.0); Immature Granulocyte Absolute 0.06 K/mm3 (0.00-0.00); Immature Granulocyte Percent A 0.5 % (0.0-0.0); Lymphocytes Absolute Auto 3.73 K/mm3 (1.10-4.50); Lymphocytes Percent Auto 28.4 % (18.0-42.0); Mean Corpuscular HGB Conc 33.1 g/dL (32-36); Mean Corpuscular Hemoglobin 29.5 pg (27.0-31.0); Mean Platelet Volume 9.1 fl (9.2-11.8); Monocytes Absolute Auto 1.16 K/mm3 (0.10-0.90); Monocytes Percent Auto 8.8 % (2.0-11.0); Neutrophils Absolute Auto 8.16 K/mm3 (1.70-7.20); Platelet Count Result 342 K/mm3 (150-420); Red Blood Count 4.38 M/mm3 (4.20-5.40); Red Cell Distribution Width 13.6 % (11.6-14.4); White Blood Count 13.2 K/mm3 (4.8-10.8)
[2024-07-16 16:34] LABS: Alanine Aminotransferase 102 U/L (14-59); Albumin Level 3.3 g/dL (3.4-5.0); Alkaline Phosphatase 96 U/L (46-116); Anion Gap 8 mmol/L (4-12); Aspartate Amino Transferase 37 U/L (15-37); Bilirubin,Total 0.3 mg/dL (0.00-1.00); Blood Urea Nitrogen 11 mg/dL (7-18); Calcium 9.1 mg/dL (8.5-10.1); Carbon Dioxide 31 mmol/L (21-32); Chloride 102 mmol/L (98-108); Estimated Glomerular Filt Rate > 60; Glucose 80 mg/dL (70-99); Osmolality Calculated 290 mOsm/kg (285-295); Potassium 3.6 mmol/L (3.5-5.1); Sodium 141 mmol/L (136-145); Total Protein 6.4 g/dL (6.4-8.2)
[2024-07-16 17:02] LABS: Thyroid Stimulating Hormone > 96.00 uIU/mL (0.36-3.74)
== END 2024-08-19 23:59 | disposition home or self-care (01) ==
LOC: CHSLAB 07:04
PROVIDERS: Visit Provider Internal Medicine
DX: C43.70 Malignant melanoma of unspecified lower limb, including hip (principal)
CPT/HCPCS: 36415; 80053; 84443; 85025

== ENCOUNTER 2024-10-21 14:14 | Emergency (ER) | payer OTHER, MEDICAID, SELFPAY ==
--- NOTE | ~2024-10-21 | CT_ITS ---
EXAMINATION: CT abdomen pelvis w con DATE: 10/21/2024 16:53 INDICATION: abdominal pain/ nausea x1 week; worsening TECHNIQUE: Computed tomography (CT) of the abdomen and pelvis was performed with 100 mL Omnipaque-350 intravenous contrast. Automated exposure control and iterative reconstruction technique were employe d. The dose-length product was 1471.81 mGy-cm. COMPARISON: 06/27/2024; PET/CT 04/03/2024. FINDINGS: Lower thorax: Small pericardial fluid collection. Bilateral dependent atelectasis. Liver: Enlarged. Biliary/Gallbladder: Gallbladder is normal. No bile duct dilation. Pancreas: Dilated main pancreatic duct. Mild peripancreatic stranding. Spleen: Normal. Adrenals:No mass. Kidneys: No suspicious mass, obstructing stone, or hydronephrosis. Subcentimeter left midpole hypoden sity, too small to characterize. GI tract: No small or large bowel dilation. Appendix not visualized. Mesentery/Peritoneum: No ascites, mass, or free air. Retroperitoneum: No mass. Pelvis: Mild urinary bladder wall thickening. Normal uterus and bilateral ovaries. Soft Tissues: Enlarged left inguinal lymph node. Bones: No acute osseous finding. IMPRESSION: Small pericardial effusion. Hepatomegaly. Acute interstitial pancreatitis. Pancreatic duct dilation, without obstructing stone or mass detected . Mild urinary bladder wall thickening, may reflect cystitis, correlate with urinalysis. Left inguinal lymphadenopathy. Reviewed, dictated and finalized at location K. ANTS CUTTER IMPRESSION: Small pericardial effusion. Hepatomegaly. Acute interstitial pancreatitis. Pancreatic duct dilation, without obstructing stone or mass detected. Mild urinary bladder wall thickening, may reflect cystitis, correlate with urin alysis. Left inguinal lymphadenopathy.
[2024-10-21 14:15] VITALS: BP 152/106; PULSE 78; RESP 18; TEMP 36; O2SAT 98
--- NOTE | 2024-10-21 14:43 | ED_ITS ---
HPI - Abdominal Pain General Chief Complaint: Abdominal Pain Stated Complaint: abdominal pain Time Seen by Provider: 10/21/24 14:36 Source: patient Mode of arrival: ambulatory Limitations: no limitations History of Present Illness HPI narrative: 24 years old white female came to the ED by private car complaining of generalized abdominal sharp stabbing pain worse at the upper abdomen, no radiation, started 1 week ago, steady with intermittent flare mainly after eating breakfast and dinner. She denies any fever, chills, nausea, vomiting, diarrhea, constipation, history of left foot melanoma, stage III, currently on chemotherapy, since June 2023. History of hypothyroidism, acid reflux, depression. Patient does not smoke or drink or use drugs Related Data Home Medications ?Medication ?Instructions ?Recorded ?Confirmed ?Last Taken ?Type binimetinib 15 mg tablet (Mektovi) 15 mg PO TID 10/21/24 Unknown History citalopram 10 mg tablet 10 mg PO DAILY 10/21/24 Unknown History colestipol 1 gram tablet 1 g PO BID 10/21/24 Unknown History encorafenib 75 mg capsule 150 mg PO TID 10/21/24 Unknown History (Braftovi) levothyroxine 100 mcg tablet 100 mcg PO DAILY 10/21/24 Unknown History omeprazole 40 mg capsule,delayed 40 mg PO DAILY 10/21/24 Unknown History release prednisone 20 mg tablet 100 mg PO DAILY 10/21/24 10/21/24 Unknown History Allergies Allergy/AdvReac Type Severity Reaction Status Date / Time No Known Allergies Allergy Verified 10/21/24 15:45 Review of Systems 2 Review of Systems: All systems reviewed & are unremarkable except as noted in HPI and below PMFSH Past Medical History Medical History Port-A-Cath in place Suppression, menstruation BMI 40.0-44.9, adult Depression No active medical problems Surgical History Surgical History History of appendectomy Family History Family History Father No problems noted. Mother No problems noted. Sibling No problems noted. Father Malignant neoplasm of prostate Other Diabetes mellitus Heart disease Social History Social History Smoking packs per day: 0.5 Smoking cigarettes per day: 10.0 Years smoked: 7 Smoking pack-years: 3.50 Smoking status: Former smoker Tobacco type: cigarettes Second hand tobacco smoke exposure: Yes Smoking end date: 12/17/22 Alcohol intake: current Alcohol use details: RARE Substance use: former Substance use type: does not use and marijuana Other substance usage details: 2 TIMES PER WEEK, NONE IN THE LAST 2 MONTHS Do You Feel Safe in your Home?: Yes Lack of Transportation: No Lack of Food: Never True Current Housing: I Have Housing Concerned About Future Housing: No Difficulty Paying Gas/Electric Bills: No Difficulty Paying for Meds: No Currently Unemployed: No Education: High School Diploma/GED Difficulty w/ Childcare or Family Care: No Living arrangements: with family Occupation/Education: occupation Additional occupation/education comments: [employer] Gender identity (if verbalized by the patient): Female Sexual Orientation (if Verbalized by the Patient): Straight or Heterosexual Spiritual care concerns: No Exam 2 Narrative: General appearance: Well-developed, well-nourished Skin: Normal color Head: Normocephalic, nontraumatic Eyes: Clear conjunctiva ENT: Oropharynx normal, ears normal, nose normal Neck: Supple, nontender Chest and respiratory: Airway patent, no respiratory distress, no accessory muscle use Heart: Regular rate/rhythm Abdomen: Soft, diffuse abdominal tenderness, no rebound, guarding,no organomegaly, quiet bowel sounds Vascular: Normal peripheral pulses, normal capillary refill. Musculoskeletal: Normal range of motion, nontender back Neurologic: Alert and oriented ?3, WEB SITE ADMINISTRATOR is normal as tested, no gross motor deficit Course Consultations Consultation #1: Lien, nurse practitioner, hospitalist at [facility] who accepted patient transfer , Dr. juárez Date: 10/21/24 Time: 18:45 Vital Signs Vital signs: Vital Signs Temperature 36.0 C L 10/21/24 14:15 Pulse Rate 78 10/21/24 14:15 Respiratory Rate 18 10/21/24 14:15 Blood Pressure 152/106 H 10/21/24 14:15 Pulse Oximetry 98 10/21/24 14:15 Oxygen Delivery Room Air 10/21/24 14:15 Temperature 36.6 C 10/21/24 18:37 Pulse Rate 70 10/21/24 18:37 Respiratory Rate 18 10/21/24 18:37 Blood Pressure 127/78 10/21/24 18:37 Pulse Oximetry 100 10/21/24 18:37 Oxygen Delivery Room Air 10/21/24 18:37 MDM - Abdominal Pain MDM Narrative Medical decision making narrative: Patient came with abdominal pain for 1 week Vital signs showing blood pressure 152/106 otherwise insignificant Physical examination consistent with diffuse abdominal tenderness Differential diagnosis include melanoma metastasis, constipation, urinary tract infection, colitis, diverticulitis, cholecystitis, appendicitis Blood workup today includes CBC, CMP, lipase showed lipase of 1020 otherwise insignificant findings Urinalysis showed no evidence of infection CT abdomen and pelvis with IV contrast showed findings consistent with interstitial pancreatitis which could be secondary to the chemotherapy medication Transfer to [facility] discussed with Lien Differential Diagnosis Differential diagnosis: Likely abdominal pain, acute appendicitis, constipation, diverticulitis and pancreatitis Medical Records Attestation: I reviewed the patient's medical records. Lab Data Attestation: I reviewed the patient's lab results. 10/21/24 15:18 10/21/24 15:18 Labs: Lab Results 10/21/24 Range/Units 15:18 WBC 8.2 (4.8-10.8) K/mm3 RBC 4.05 L (4.20-5.40) M/mm3 Hgb 13.0 (12.0-15.0) g/dL Hct 37.6 (35.0-49.0) % MCV 92.8 (78.0-102.0) fL MCH 32.1 H (27.0-31.0) pg MCHC 34.6 (32-36) g/dL RDW 12.9 (11.6-14.4) % Plt Count 248 (150-420) K/mm3 MPV 9.6 (9.2-11.8) fl Immature Gran % (Auto) 0.2 H (0.0-0.0) % Neut % (Auto) 78.0 H (50.0-70.0) % Lymph % (Auto) 11.8 L (18.0-42.0) % [place] % (Auto) 9.5 (2.0-11.0) % Eos % (Auto) 0.5 L (1.0-6.0) % Baso % (Auto) 0.0 (0.0-1.0) % Lymph # (Auto) 0.96 L (1.10-4.50) K/mm3 [place] # (Auto) 0.78 (0.10-0.90) K/mm3 Eos # (Auto) 0.04 (0.02-0.50) K/mm3 Baso # (Auto) 0.00 (0.00-0.10) K/mm3 Abs Immat Gran (auto) 0.02 H (0.00-0.00) K/mm3 Absolute Neuts (auto) 6.37 (1.70-7.20) K/mm3 Absolute Nucleated RBC 0.00 (0.00-0.00) K/mm3 Nucleated RBC % 0.0 (0-0.0) % Sodium 139 (136-145) mmol/L Potassium 3.5 (3.5-5.1) mmol/L Chloride 101 (98-108) mmol/L Carbon Dioxide 27 (21-32) mmol/L Anion Gap 11 (4-12) mmol/L BUN 20 H (7-18) mg/dL Creatinine 0.91 (0.55-1.02) mg/dL Estim Creat Clear Calc 112 ml/min Estimated GFR > 60 (59 - ) Glucose 114 H (70-99) mg/dL Calculated Osmolality 291 (285-295) mOsm/kg Calcium 9.3 (8.5-10.1) mg/dL Total Bilirubin 0.5 (0.00-1.00) mg/dL AST 12 L (15-37) U/L ALT 32 (14-59) U/L Alkaline Phosphatase 45 L (46-116) U/L Total Protein 6.9 (6.4-8.2) g/dL Albumin 3.6 (3.4-5.0) g/dL Lipase 1020 H (16-77) U/L Serum HCG, Qual Negative Urine Color Light yellow (Yellow) Urine Appearance Clear (Clear) Urine pH 6.0 (5.0-8.0) Ur Specific [place] 1.020 (1.010-1.020) Urine Protein Negative (Negative) Urine Glucose (UA) Negative (Negative) Urine Ketones Negative (Negative) Ur Blood (Man) Negative (Negative) Urine Nitrate Negative (Negative) Urine Bilirubin Negative (Negative) Urine Urobilinogen 0.2 (0.2-1.0) mg/dL Leukocyte Esterase Rfl Negative (Negative) ETELVINA/UL Imaging Data Radiologist's impression: ITS Impressions Abdomen/Pelvis CT 10/21/24 17:08 IMPRESSION: Small pericardial effusion. Hepatomegaly. Acute interstitial pancreatitis. Pancreatic duct dilation, without obstructing stone or mass detected. Mild urinary bladder wall thickening, may reflect cystitis, correlate with urinalysis. Left inguinal lymphadenopathy. Critical Care Time Critical Care Time Critical Care Time: No Discharge Plan Discharge Patient Language: Indonesian Prescriptions: No Action citalopram 10 mg tablet 10 mg PO DAILY levothyroxine 100 mcg tablet 100 mcg PO DAILY colestipol 1 gram tablet 1 g PO BID Braftovi 75 mg capsule 150 mg PO TID Mektovi 15 mg tablet 15 mg PO TID prednisone 20 mg tablet 100 mg PO DAILY Rx Instructions: 100 MG DAILY AND 20 MG HS omeprazole 40 mg capsule,delayed release(DR/EC) 40 mg PO DAILY 1 mg-20 mcg (24)/75 mg (4) tablet 1 tablet PO DAILY Qty: 84 2RF
[2024-10-21] MEDS: SODIUM CHLORIDE 0.9% IV 1,000 ML 999 ML IV CONT ×2 (15:18→17:47)
[2024-10-21] MEDS: ONDANSETRON INJ 4 MG/2 ML VIAL IV PUSH ×2 (15:19→20:52)
[2024-10-21] MEDS: MORPHINE SULFATE (*CRX) 4 MG/ML INJ IV PUSH (15:19)
[2024-10-21 15:24] LABS: Eosinophils Absolute Auto 0.04 K/mm3 (0.02-0.50); Eosinophils Percent Auto 0.5 % (1.0-6.0); Hematocrit 37.6 % (35.0-49.0); Immature Granulocyte Absolute 0.02 K/mm3 (0.00-0.00); Immature Granulocyte Percent A 0.2 % (0.0-0.0); Lymphocytes Absolute Auto 0.96 K/mm3 (1.10-4.50); Lymphocytes Percent Auto 11.8 % (18.0-42.0); Mean Corpuscular HGB Conc 34.6 g/dL (32-36); Mean Corpuscular Hemoglobin 32.1 pg (27.0-31.0); Mean Corpuscular Volume 92.8 fL (78.0-102.0); Mean Platelet Volume 9.6 fl (9.2-11.8); Monocytes Absolute Auto 0.78 K/mm3 (0.10-0.90); Monocytes Percent Auto 9.5 % (2.0-11.0); Neutrophils Absolute Auto 6.37 K/mm3 (1.70-7.20); Platelet Count Result 248 K/mm3 (150-420); Red Blood Count 4.05 M/mm3 (4.20-5.40); Red Cell Distribution Width 12.9 % (11.6-14.4); White Blood Count 8.2 K/mm3 (4.8-10.8)
[2024-10-21 15:48] LABS: Alanine Aminotransferase 32 U/L (14-59); Albumin Level 3.6 g/dL (3.4-5.0); Alkaline Phosphatase 45 U/L (46-116); Anion Gap 11 mmol/L (4-12); Aspartate Amino Transferase 12 U/L (15-37); Bilirubin,Total 0.5 mg/dL (0.00-1.00); Blood Urea Nitrogen 20 mg/dL (7-18); Calcium 9.3 mg/dL (8.5-10.1); Carbon Dioxide 27 mmol/L (21-32); Chloride 101 mmol/L (98-108); Estimated CRCL calculation 112 ml/min; Estimated Glomerular Filt Rate > 60; Glucose 114 mg/dL (70-99); Osmolality Calculated 291 mOsm/kg (285-295); Potassium 3.5 mmol/L (3.5-5.1); Sodium 139 mmol/L (136-145); Total Protein 6.9 g/dL (6.4-8.2)
[2024-10-21 15:49] LABS: Lipase 1020 U/L (16-77)
[2024-10-21 16:01] LABS: SPREG INTERNAL CONTROL Positive; Serum Qual hCG Negative
[2024-10-21 16:05] VITALS: BP 146/85; PULSE 88; RESP 20; O2SAT 96
[2024-10-21 16:08] LABS: Add Urine Microscopic? NO; Appearance Urine Clear (Clear); Bilirubin Urine Negative (Negative); Blood Urine Negative (Negative); Color Urine Light Yellow (Yellow); Glucose Urine UA Negative (Negative); Ketones Urine Negative (Negative); Leukocyte Esterase Ur Negative LEU/UL (Negative); Nitrate Urine Negative (Negative); Protein Urine Negative (Negative); Urobilinogen Urine 0.2 mg/dL (0.2-1.0)
[2024-10-21 18:37] VITALS: BP 127/78; PULSE 70; RESP 18; TEMP 36.6; O2SAT 100
[2024-10-21 19:08] VITALS: BP 134/83; PULSE 78; RESP 20; TEMP 37.6; O2SAT 98
--- NOTE | 2024-10-21 19:10 | PC.NURSE ---
Report received, report to Kehinde GIRALDO was given by Sliem, pt resting, will await [facility] return for pt transfer. Pt updated on POC for transfer and wait time. Pt c/o bad Headache and asking for something for pain. Order received from ERP. Pts VSS.
[2024-10-21] MEDS: HYDROmorphone HCL INJ (*CRX) 2 MG/ML VIAL 0.5 MG IV PUSH (19:18)
[2024-10-21] MEDS: SODIUM CHLORIDE 0.9% IV 1,000 ML 150 ML IV CONT (19:21)
--- NOTE | 2024-10-21 19:35 | PC.NURSE ---
Pt needing to take her HS Cancer meds for her melanoma, wanting to know if she can take her own home supply. ERP Dr Rincon ok'd for pt to take own home meds for cancer. Pt called her mother to bring meds to ER before she leaves for transfer.
--- NOTE | 2024-10-21 20:29 | PC.NURSE ---
Pt resting and continues to await [facility] for transfer. VSS, no needs at this time.
--- NOTE | 2024-10-21 20:45 | PC.NURSE ---
Pt vomiting upon arrival of EMS for transfer. Order obtained from Dr Rincon to give 4mg Zofran IV before EMS transfer.
[2024-10-21 20:53] VITALS: BP 133/74; PULSE 80; RESP 20; TEMP 37.1; O2SAT 96
--- OUTSIDE RECORDS SUMMARY | 2024-10-26 08:01 | XMS_ITS | Encounter Summary ---
Author Organization [facility] Address [address] [place] [address] Care Team Providers Care Business Intelligence Manager Name Role Phone Unavailable Primary Care Provider Unavailabl e Reason for Visit * Reason Comments Enlarged Tonsils moreno on left side Sore Throat past 7 days Cough night and day Swelling Gland left neck Encounter Details Date Type Department Care Team (Latest Contact Info) Description 09/25/2010 9:50 AM LEAD ASSISTANT MANAGER Office Visit [facility] - Pediatrics [address] [place] [address] [address] [place] [id number] Terrie Anderson MD [address] [address] Streptococcal pharyngitis (Primary Dx) Social History Tobacco Use Types Packs/Day Years Used Date Smoking Tobacco: Never Assessed Sex and Gender Information Value Date Recorded Sex Assigned at Not on file Gender Identity Not on file Sexual Orientation Not on file documented as of this encounter Last Filed Vital Signs Vital Sign Reading Time Taken Comments Blood Pressure - - Pulse - - Temperature 36.4 ??C (97.6 ??F) 09/25/2010 10:[address] Respiratory Rate - - Oxygen Saturation - - Inhaled Oxygen Concentration - - Weight 55.6 kg (122 lb 9.6 oz) 09/25/2010 10:02 AM LEAD ASSISTANT MANAGER Height - - Body Mass Index - - documented in this encounter Progress Notes * Terrie Anderson MD - 09/25/2010 10:06 AM CST SUBJECTIVE: Dayanara Sunday is a 10 y.o.brought by mother who complains of sore throat for 7 day(s). Fever: Yes, initially 101 three days ago, No fever today Headache:Yes Stomach ache:No URI symptoms: Yes, coughing and runny nose for a week not getting better. OBJECTIVE: Temp(Src) 97.6 ??F (Oral) Wt 122 lb 9.6 oz (55.611 kg) General appearance: alert, well appearing, and in no distress. Ears: bilateral TM's and external ear canals normal Nose: normal and patent, no erythema, discharge or polyps Oropharynx: left tonsil 2 + and mucous membranes moist, pharynx normal without lesions Neck: supple, no significant adenopathy Lungs: clear to auscultation, no wheezes, rales or rhonchi, symmetric air entry Heart - regular rate and rhythm, normal S1 and S2, no murmurs ASSESSMENT: Pharyngitis Strep throat PLAN: See orders for this visit as documented in the electronic medical record Symptomatic treatment discussed. ASSISTANT MANAGER documented in this encounter Plan of Treatment Not on file documented as of this encounter Procedures Procedure Name Priority Date/Time Associated Diagnosis Comments STREP A SCREEN - POINT OF CARE (AMB) Routine 09/25/2010 10:33 AM LEAD ASSISTANT MANAGER Streptococcal pharyngitis documented in this encounter Results * (ABNORMAL) STREP A SCREEN - POINT OF CARE (AMB) (09/25/2010 10:33 AM LEAD ASSISTANT MANAGER) Strep A Rapid POCT positive NEGATIVE - POSITIVE Strep A Internal Control NEGATIVE - POSITIVE Throat swab (specimen) ENTIRE THROAT (SURFACE REGION OF NECK) / Unknown 09/25/2010 10:33 AM LEAD ASSISTANT MANAGER Terrie Anderson MD LAB - POINT OF CARE ORDERABLES documented in this encounter Visit Diagnoses Diagnosis Streptococcal pharyngitis- Primary Streptococcal sore throat documented in this encounter
--- OUTSIDE RECORDS SUMMARY | 2024-10-26 08:01 | XMS_ITS | Encounter Summary ---
Author Organization [facility] Address [address] [place] [address] Care Team Providers Care Office Machines Wirer Name Role Phone Terrie Anderson MD Primary Care Provider [phone] Reason for Visit * Reason Comments Complete Physical Exam 9th grade physica l Encounter Details Date Type Department Care Team (Late st Contact Info) Description 07/05/2014 3:00 PM CDT Office Visit [facility] - Pediatrics [address] [place] [phone] Priya Sprague MD [address] [place] [phone] Well child check (Primary Dx); BMI (body mass index), pediatric, 95-99% for age; Need for prophylactic vaccination and inoculation against other specified disease; Need for prophylactic vaccination and inoculation against other viral diseases; Need for prophylactic vaccination and inoculation against varicella; Obese; Depression Social History Tobacco Use Types Packs/Day Years Used Date Smoking Tobacco: Never Assessed Sex and Gender Information Value Date Recorded Sex Assigned at Not on file Gender Identity Not on file Sexual Orientation Not on file documented as of this encounter Last Filed Vital Signs Vital Sign Reading Time Taken Comments Blood Pressure 120/60 07/05/2014 3:06 PM CDT Pulse 72 07/05/2014 3:06 PM CDT Temperature - - Respiratory Rate - - Oxygen Saturation - - Inhaled Oxygen Concentration - - Weight 99.8 kg (220 lb) 07/05/2014 3:06 PM CDT Height 169.2 cm (5' 6.63 ) 07/05/2014 3:06 PM CD T Body Mass Index 34.85 07/05/2014 3:06 PM CDT Body Mass Index Percentile 98.96% 07/05/2014 3:0 6 PM CDT Growth Chart: CDC (Girls, 2- 20 Years) documented in this encounter Patient Instructions * Patient Instructions* Kiana Lofton RN - 07/05/2014 3:49 PM CDT YOUR GROWING CHILD: ADOLESCENT Child???s Name: Dayanara Hilton Today???s Date: 07/05/2014 77.3% systolic and 27.7% diastolic of BP percentile by age, sex, and height. Wt Readings from Last 3 Encounters: 07/05/14 99.791 kg (220 lb) (99 %*, Z = 2.55) 04/19/11 63.957 kg (141 lb) (99 %*, Z = 2.18) 04/12/11 64.592 kg (142 lb 6.4 oz) (99 %*, Z = 2.22) * Growth percentiles are based on CDC 2-20 Years data. Ht Readings from Last 3 Encounters: 07/05/14 1.692 m (5' 6.62 ) (90 %*, Z = 1.27) 04/19/11 1.549 m (5' 1 ) (93 %*, Z = 1.47) * Growth percentiles are based on CDC 2-20 Years data. Body mass index is 34.86 kg/(m^2). 99%ile (Z=2.28) based on CDC 2-20 Years BMI-for-age data using vitals from 07/05/2014. 99%ile (Z=2.55) based on CDC 2-20 Years enybwg-kpm-xen data using vitals from 07/05/2014. 90%ile (Z=1.27) based on CDC 2-20 Years gbtihco-jjl-flu data using vitals from 07/05/2014. IMMUNIZATIONS At the time of high school physical you will receive a Tdap booster. Other immunizations which we recommend, but that are not required are Menactra (protects again one type of bacterial meningitis), Gardisil (protects girls and women against Human Papilloma Virus), and Hepatitis A vaccine if not already given. PROMOTION OF HEALTHY AND SAFE HABITS: Try to get 8 hours of sleep a night. Engage in moderately strenuous to vigorous physical activity (e.G walking, biking, aerobics for 30 - 60 minutes at least three times a week). Limit TV viewing, computer and video games. Practice time management skills. INJURY AND VIOLENCE PREVENTION: Always wear safety belt when driving or riding in a car. If you are driving, insist that your passengers wear safety belts. Follow the speed limit and drive responsibly. Concentrate when driving and avoid distractions(e.g talking on the phone, texting, playing loud music,eating). Do not drink alcohol, especially when driving, swimming, boating or operating farm equipment or other machinery. Plan to ride with a designated medical delivery driver or to call for a ride if drinking. Write and sign a no drinking and driving contract with your parents. Learn how to swim(if you haven't already learned). Learn first aid and CPR. Reduce your risk of developing skin cancer by limiting time in the sun and applying sunscreen before going outside. Avoid tanning salons. Help your parents test smoke alarms in your home to be sure they work properly, and help change the batteries yearly. Know what to do in case of fire or other emergency. Review fire safety plans at home. Always wear a helmet when riding on a motorcycle, bike, or all-terrain vehicle. However, ATV's and motorcycles are dangerous, even with a helmet. Wear protective gear(e.g eye protection, mouth guard,helmet, knee and elbow pads) for sports and other physical activities such as in-line skating. Wearappropriate protective gear at work and follow job safety procedures. Avoid high noise levels, especially when using ear phones. Do not carry or use a weapon of any kind. Develop skills in conflict resolution, negotiation, and dealing with anger constructively. Learn techniques to protect yourself from physical, emotional, and sexual abuse or rape. Seek help if you are physically or sexually abused or fear that you are in danger. MENTAL HEALTH: Take on new challenges that will increase your self confidence. Continue to develop your sense of identity, clarifying your values and beliefs. Accept who you are and enjoy both the child and adult in you. Trust your own feelings, and also listen to the ideas of good friends and valued adults. Seekhelp if you often feel angry, depressed, or hopeless. Learn how to deal with stress. Set reasonablebut challenging goals. Understand the importance of your spiritual needs and try to fulfill them. NUTRITION: Choose and prepare a variety of healthy foods. Eat three nutritious meals a day at regularly scheduled times; breakfast is especially important. Select a nutritious lunch from the school cafeteria orpack a balanced lunch. Choose plenty of fruits and vegetables;breads, cereals, and other whole grain products; low-fat dairy; lean meats, chicken, fish and foods prepared with little or not fat. Include foods rich in calcium and iron in your diet. Choose nutritious snacks that are rich in complex carbohydrates. Limit high-fat or low-nutrient foods and beverages such as candy, chips, or soft drinks. Achieve and maintain a healthy weight. Manage weight through eating habits and regular physical ac tivity. ORAL HEALTH: [place] your teeth twice a day with a pea-size amount of fluoridated toothpaste, and floss between your teeth daily. Schedule a dental appointment every 6 months or as advised, ask your dental professional how to handle dental emergencies, especially the loss or fracture of a tooth. Do not smoke or use chewing tobacco. SEXUALITY: Identify a supportive adult who can give you accurate information about sex. Ask the health professional for information on sexual development and maturity, contraception, and prevention of sexually transmitted diseases. Discuss any questions you have. If you are confused or concerned about your sexual feelings( for the same or opposite sex), talk with the health professional or a trusted adult. Recognize that sexual feelings are normal, but having sex should be a oygy-szxqckw-tcu decision. Delay having sex until you and your partner are mature enough to assume responsibility for sexual relations. Share your feelings about sexuality with your partner. Abstaining from sexual intercourse is the safest way to prevent and sexually transmitted diseases, including HIV/AIDS. Learn ways to resist sexual pressures and say no to sex. If you are sexually active, discuss contraceptivemethods and STD prevention with your doctor. Learn about and practice safer sex. Limit the number of partners and use latex condoms and other barriers correctly. PREVENTION OF SUBSTANCE USE/ABUSE: Do not smoke, use smokeless tobacco, drink alcohol, or use drugs, inhalants, diet pills, or steroids. Do not become involved in selling drugs. If you smoke, talk with the health professional about how to stop smoking. If you use drugs or alcohol, discuss this with your health professional and ask for help. Support your friends who choose not to use tobacco, alcohol, drugs, steroids, or diet pills. PROMOTION OF SOCIAL COMPETENCE: Spend time with your family doing things you all enjoy.Participate in social activities, community groups, or team sports.Make sure you understand the limits your parents have set and the consequences they have established for unacceptable behavior. Talk with your family and friends about your strategies and coping mechanisms for handling negative peer pressure. Continue your progress in making independent decisions and understanding the consequences of your behavior. PROMOTION OF RESPONSIBILITY: Respect the rights and needs of others. Follow family rules, such as those for curfews or driving. Share in bankruptcy judge. Learn about how you can take on new responsibility in your family, peer group, and community. Learn new skills(e.g lifesaving, peer mentoring) that can be useful in helping your friends, familyor community. Talk to your health professional about taking responsibility for you own health and becoming fully informed about preventive health services. PROMOTION OF SCHOOL ACHIEVEMENT: Be responsible for your own school attendance, home work , course selection and extracurricular activities. If you feel frustrated with school or are thinking about dropping out, discuss your feelings with a trusted adult. Identify talents and interests that you want to pursue for a career or for personal enrichment. Make plans for after high school(e.g college options, vocational training, the , other career choices) PROMOTION OF COMMUNITY INTERACTION: Participate in social, buddhism, cultural, volunteer or recreational activities. Advocate for community programs(recreational, athletic, artistic, and educational activities) Talk with friends and family about current events and community responsibilities such as voting, conservation and recycling. Explore your cultural heritage and learn about other cultures. Participate in culturally diverse activities. SUGGESTED INTERNET-SAFETY WEB SITES: Don't consume more than two hour of entertainment media. Avoid having a TV or computer in your room. www.BuddyBet: A great site for older teens that includes ways to communicate with peers when they experience online bullying that is not cool . www.NeuroNation.de.org: A site for younger and older teens, as well as parents, with many suggestions oninternet safety www.BigBarntz.org: A site presented by the National Center for Missing and Exploited Children with information for kids, teens and parents, much of it focused on avoiding cyber bullying. documented in this encounter Progress Notes * Priya Sprague MD - 07/05/2014 3:07 PM CDT Adolescent [facility] Nurse Screen: Parental/Patient Concerns: none Diet: Milk 2%, 8-16 ounces per day. +cheese Vegetables: fair, fruits: good, Dental: regular dental visits? No Hearing / Vision: concerns? No //////////////////////////////////////////////////////////////////////////////// /////////////////// Note: PHX:healthy Medications: none ROS Stomachaches, Headaches: No Constipation/Diarrhea: No Girls: Menses Yes: monthl, regular, lasts 6 days Social History: School: [employer], Grade 9th. Home:lives with mom, dad Activity/Exercise: poor Alcohol:denies Drugs:denies Sex:denies Smoking:denies Vymtdhfapb-DKR-6 score : 17 (+) --with mom out of room, discovered that Dayanara has been cutting herself with a razor blade. She does it when she is feeling really down. She states that she has told some friends and they are helping her to quit. She states that she does want to quit cutting. She states she has thought about killing herself before but they starts crying and can't do it. Shesays the last time was last year. I brought chris's mom back into the room and told her that we should start some medication for Chris now. (earlier in visit had discussed starting counseling first and going to medication if that wasn't helping). I also told mom about the cutting so that Chris's mom could keep closer watch on her as we start medication. Physical Exam: Wt Readings from Last 3 Encounters: 07/05/14 99.791 kg (220 lb) (99 %*, Z = 2.55) 04/19/11 63.957 kg (141 lb) (99 %*, Z = 2.18) 04/12/11 64.592 kg (142 lb 6.4 oz) (99 %*, Z = 2.22) * Growth percentiles are based on CDC 2-20 Years data. Ht Readings from Last 3 Encounters: 07/05/14 1.692 m (5' 6.62 ) (90 %*, Z = 1.27) 04/19/11 1.549 m (5' 1 ) (93 %*, Z = 1.47) * Growth percentiles are based on CDC 2-20 Years data. 99%ile (Z=2.55) based on [facility] 2-20 Years iwegak-ybs-erv data using vitals from 07/05/2014. 90%ile (Z=1.27) based on CDC 2-20 Years jsseaau-sez-mki data using vitals from 07/05/2014. BP 120/60 Pulse 72 Wt 99.791 kg (220 lb) BMI 34.86 kg/m2 77.3% systolic and 27.7% diastolic of BP percentile by age, sex, and height. GENERAL: Alert, NAD EYES: PERRLA, EOMI, red reflex bilaterally EARS: TM's wnl NOSE: nasal passages clear NECK: supple, no masses, no lymphadenopathy RESP: clear to auscultation bilaterally CV: RRR, normal S1/S2, no murmurs, clicks, or rubs. ABD: soft, nontender, no masses, no hepatosplenomegaly, normal bowel sounds : normal female exam EXTREMITIES: Full range of motion of all extremities SPINE: Straight SKIN: no rashes or lesions Impression: Well child with normal growth and development. 2. Depression 3. Bmi>95% 4. obese Plan: Anticipatory guidance discussed included nutrition, safety, dentist, exercise. Vaccines: Meningococcal, Varicella, HPV BMI> 85%: Yes Classification of weight: BMI trajectory: an increase Blood Pressure interpretation:normal 2. Start zoloft today. Told of side effects to watch for. Call immediately if feeling worse. 3/4. Discussed diet and exercise Follow up in 1 year. documented in this encounter Plan of Treatment Not on file documented as of this encounter Visit Diagnoses Diagnosis Well child check- Primary Routine or child health check BMI (body mass index), pediatric, 95-99% for age Body Mass Index, pediatric, greater than or equal to 95th percentile for age Need for prophylactic vaccination and inoculation against other specified disease Need for prophylactic vaccination and inoculation against other viral diseases(V04.89) Need for prophylactic vaccination and inoculation against other viral diseases Need for prophylactic vaccination and inoculation against varicella Obese Obesity, unspecified Depression Depressive disorder, not elsewhere classified documented in this encounter Care Teams Office Machines Wirer Relationship Specialty Start Date End Date Terrie Anderson MD PCP - General Pediatrics 11/19/11 09/12/14 documented as of this encounter
--- OUTSIDE RECORDS SUMMARY | 2024-10-26 08:01 | XMS_ITS | Encounter Summary ---
Author Organization [facility] Address [address] [place] [address] Care Team Providers Care Engineer [employer]umping [employer] Name Role Phone Priya Sprague MD Primary Care Provider [phone] Reason for Visit * Reason Comments Pain Tailbone Encounter Details Date Type Department Care Team (Late st Contact Info) Description 04/10/2018 10:30 AM CDT Office Visit [facility] - Pediatrics [address] [place] [phone] Sudeep Gloria DO [address] [place] [phone] Coccygeal pain (Primary Dx) Social History Tobacco Use Types Packs/Day Years Used Date Smoking Tobacco: Never Smokeless Tobacco: Never Alcohol Use Standard Drinks/Week Comments Not Asked 0 (1 standard drink = 0.6 oz pur e alcohol) Sex and Gender Information Value Date Recorded Sex Assigned at Not on file Gender Identity Not on file Sexual Orientation Not on file documented as of this encounter Last Filed Vital Signs Vital Sign Reading Time Taken Comments Blood Pressure - - Pulse - - Temperature 36.8 ??C (98.3 ??F) 04/10/2018 10:51 AM C DT Respiratory Rate - - Oxygen Saturation - - Inhaled Oxygen Concentration - - Weight 110.2 kg (243 lb) 04/10/2018 10:51 AM CDT Height - - Body Mass Index - - documented in this encounter Progress Notes * Sudeep Gloria DO - 04/10/2018 10:53 AM CDT Sick Visit Name: Dayanara Hilton Age: 17 y.o. Accompanied By: Mother CC: Chief Complaint Patient presents with ??? Pain Tailbone HPI: Fall down stairs several weeks ago. Still hurting. Some times to sit and get up in am. Better than at the first couple days. No swelling or bruising. Walking fine. Slipped in her socks. Down several steps. Pulling legs up put on socks hurts otherwise fine. No radiation of pain. Able to sit just hurts sometimes. No problem walking. Current Medications: No current outpatient prescriptions on file. No current facility-administered medications for this visit. Allergies: No Known Allergies PE: Temp 98.3 ??F (36.8 ??C) (Temporal Artery) Wt 110.2 kg (243 lb) General alert, cooperative, no distress Skin Skin color, texture, turgor normal. No rashes or lesions, no bruising or swelling. Heart regular rate and rhythm, S1, S2 normal, no murmur, click, rub or gallop Lungs clear to auscultation bilaterally spine sacrum R on R forward sacral torsion. Impression / Plan: 1. Coccygeal pain- discussed broken vs not broken in this case does not change the management. Softtissue manipulation done for slight rotation of coccyx. Follow up with concerns. * Rebeca Duckworth - 04/10/2018 10:49 AM CDT Dayanara Hilton is a 17 y.o. female here for tail bone pain from a fall on mar 17 2018. She states that she fell down about 3-5 stairs. She states her pain level can go from a 2 to a 5. She states the pain has not really changed since her fall documented in this encounter Plan of Treatment Not on file documented as of this encounter Goals Goal Patient Goal Type Associated Problems Recent Progress Patient-Stated? Author Exercise 3X per week (30 min per time) Exercise No Priya Sprague MD Note: . Get Moving: ? ? It is recommended that children and teens get physical activity for at least 1 hour per day on most (or better yet, all) days of the week. That may sound like a lot, especially if your child is not getting any physical activity now. But physical activity means more than exercise. It can mean playing games in the backyard, or washing the car. It can mean picking up leaves, or walking the dog. Add the healthy habit of physical activity to your family? s schedule. ? ? When children take off weight through dieting alone, 80 percent of the loss is from fatty tissue and 20 percent is from muscle. Adding weight-resistance training to an exercise routine preserves the muscle tissue. Virtually every ounce dropped comes from fat. Once an adolescent meets her goal, regular exercise is essential for maintaining the desired weight. Where can I go for more information? [place] [employer] ( ) www.aap.org HealthyChildren.org www.healthychildren.org U.S. Department of Health and Human Services www.hhs.gov Website and free downloadable taylor for smartphones: http://www.[employer] Technologies/ Use safety retraint in car Lifestyle On track( 016 10:41 AM CDT) No Kiana Shaw RN documented as of this encounter Visit Diagnoses Diagnosis Coccygeal pain- Primary Other disorder of coccyx documented in this encounter Care Teams Engineer [employer]umping [employer] Relationship Specialty Start Date End Date Priya Sprague MD PCP - General Pediatrics 09/13/14 documented as of this encounter
--- OUTSIDE RECORDS SUMMARY | 2024-10-26 08:01 | XMS_ITS | Referral Summary ---
Author Organization [facility] Address [address] [place] [address] Care Team Providers Care Accredited Legal Secretary Name Role Phone Priya Sprague MD Primary Care Provider [phone] Haja Garcia MD Unavailable Source Comments [facility],non-owned Affiliates and Associated Physician Practices is amultiple site organization consisting of ambulatory clinics and hospital sitesin [place], [place] and [place]. This disclosure is being madepursuant to the Care Everywhere program and may not contain all information available regarding this patient. Last updated 18.[facility] Allergies No known active allergies Medications Be aware that medications may not be up to date on this document. Always verify current medications with the patient. No known medications Active Problems Problem Noted Date Diagnosed Date BMI (body mass index), pediatric, 95-99% for age 0807/06/2014 Depression 07/06/2014 Immunizations Name Administration Dates Next Due DTaP VACCINE IM (6wk-6yrs) 04/06/2005,,2000,08/16,2000 HEP B VACCINE, PED/ADOL 01/12/2001,2000, HIB BOOSTER 10/16/2001, 0,2000,06/13 Human Papilloma Virus Izaiah valent Vaccine 04/18/2015,09/13/2014,07/05/2014 MENINGOCOCCAL CONJUGATE (MCV4P) 06/22/2016,07/05 MMR 04/06/2005,04/14/2001 PNEUMOCOCCAL CONJ, PEDS 05/08/2002,01/12,2000,08/16 POLIO IPV 04/06/2005, 1,2000,06/13 PPD 04/06/2005,04/14/2001 TDAP (7yrs+) 04/19/2011 VARICELLA 07/05/2014,07/17/2001 Social History Tobacco Use Types Packs/Day Years Used Date Smoking Tobacco: Never Smokeless Tobacco: Never Alcohol Use Standard Drinks/Week Comments Not Asked 0 (1 standard drink = 0.6 oz pur e alcohol) Sex and Gender Information Value Date Recorded Sex Assigned at Not on file Gender Identity Not on file Sexual Orientation Not on file Last Filed Vital Signs Vital Sign Reading Time Taken Comments Blood Pressure 124/64 06/22/2016 10:38 AM CDT Pulse 56 06/22/2016 10:38 AM CDT Temperature 36.8 ??C (98.3 ??F) 04/10/2018 10:51 AM C DT Respiratory Rate - - Oxygen Saturation - - Inhaled Oxygen Concentration - - Weight 110.2 kg (243 lb) 04/10/2018 10:51 AM CDT Height 169.9 cm (5' 6.88 ) 06/22/2016 10:38 AM C DT Body Mass Index - - Plan of Treatment Not on file Goals Goal Patient Goal Type Associated Problems [...] Where can I go for more information? [place] [employer] ( ) www.aap.org HealthyChildren.org www.healthychildren.org U.S. Department of Health and Human Services www.[employer].gov Website and free downloadable taylor for smartphones: http://www.SwingShot/ Use safety retraint in car Lifestyle On track( 016 10:41 AM CDT) No Yohana-Kiana Horn RN Care Teams Accredited Legal Secretary Relationship Specialty Start Date End Date Priya Sprague MD PCP - General Pediatrics 09/13/14 Haja Garcia MD [address] [place] [address] PCP - Attributed-[employer] [employer] [place] 09/07/23
--- OUTSIDE RECORDS SUMMARY | 2024-10-26 08:01 | XMS_ITS | Clinical Summary ---
Author Organization [facility] [employer] Address [address] [facility] [place] [address] Care Team Providers Care Manager Career Name Role Phone Priya Sprague MD Primary Care Provider [phone] Haja Garcia MD Unavailable Source Comments [facility] [employer],non-owned Affiliates and Associated Physician Practices is amultiple site organization consisting of ambulatory clinics and hospital sitesin [place], [place], [place]. This disclosure is being madepursuant to the Care Everywhere program and may not contain all information available regarding this patient. Last updated 18.[facility] [employer] Allergies No known active allergies Medications Be [...] PPD 04/06/2005,04/14/2001 TDAP (7yrs+) 04/19/2011 VARICELLA 07/05/2014,07/17/2001 Family History Medical History Relation Name Comments Hypercholesterolemia Father Diabetes Paternal Grandmother Relation Name Status Comments Father Paternal Grandmother Social History Tobacco Use Types Packs/Day Years [...] Mass Index - - Plan of Treatment Health Maintenance Due Date Last Done Comments PAP SMEAR 2000 HIV SCREENING 2015 CHLAMYDIA/GONORRHEA SCREENING 2016 HEPATITIS C SCREENING 04/07/2018 DTAP/TDAP/TD VACCINES (7 - T d or Tdap) 04/19/2021 04/19/2011, 04/06/2005, 10/16/2001, Additional history exists DEPRESSION SCREENING 11/07/2023 COVID-19 VACCINE ( - 2023-2 5 season) 2024 INFLUENZA VACCINE (#1) 2024 ZOSTER VACCINE (1 of 2) 2050 HEPATITIS B VACCINE Completed 01/12/2001, 2000, 2000 HIB VACCINE Completed 10/16/2001, 10/08, 2000, Additional history exists PNEUMOCOCCAL VACCINE Completed 05/08/2002, 01/12/2001, 2000, Additional history exists HPV VACCINE Completed 04/18/2015, 05/2014, 07/05/2014 MENINGOCOCCAL VACCINE Completed 06/22/2016, 014 Goals Goal Patient Goal Type Associated Problems [...] Where can I go for more information? [employer] ( ) www.aap.org HealthyChildren.org www.healthychildren.org U.S. Department of Health and Human Services www.hhs.gov Website and free downloadable taylor for smartphones: http://www.Medlumics/ Use safety retraint in car Lifestyle On track( 016 10:41 AM CDT) No Kiana Shaw RN Care Teams Manager Career Relationship Specialty Start Date End Date Priya Sprague MD PCP - General Pediatrics 09/13/14 Haja Garcia MD [address] [facility] [address] [place] [id number] PCP - Attributed-[facility] [place] 09/07/23
--- OUTSIDE RECORDS SUMMARY | 2024-10-26 08:01 | XMS_ITS | Encounter Summary ---
Author Organization [facility] Address [address] [facility] [place] [address] Care Team Providers Care Education Program Associate Name Role Phone Unavailable Primary Care Provider Unavailabl e Reason for Visit * Reason Comments Cough productive cough x3 weeks URI occasional sneezing, stuffy nose with greenish exudate x3 weeks Fever today; temp 101 Sore Throat today Encounter Details Date Type Department Care Team (Late st Contact Info) Description 03/23/2011 2:15 PM CDT Office Visit [facility] - Pediatrics [address] [place] [phone] Priya Sprague MD [address] [place] [phone] Acute sinusitis, unspecified (Primary Dx) Social History Tobacco Use Types Packs/Day Years Used Date Smoking Tobacco: Never Assessed Sex and Gender Information Value Date Recorded Sex Assigned at Not on file Gender Identity Not on file Sexual Orientation Not on file documented as of this encounter Last Filed Vital Signs Vital Sign Reading Time Taken Comments Blood Pressure - - Pulse - - Temperature 37.2 ??C (98.9 ??F) 03/23/2011 2:25 PM CD T Respiratory Rate - - Oxygen Saturation - - Inhaled Oxygen Concentration - - Weight 63.9 kg (140 lb 12.8 oz) 03/23/2011 2:25 PM CDT Height - - Body Mass Index - - documented in this encounter Progress Notes * Priya Sprague MD - 03/23/2011 2:39 PM CDT Dayanara Hilton, 10 y.o., female, here for evaluation of uri sx which started 3 weeks ago. She finished a course of augmentin and was better, but then sx returned and have worsened again Fever: Yes, up to 101 Runny Nose:Yes, yellow and green Congestion:Yes Headache:No Cough:Yes, all the time, wet Sleep:good Appetite:good Fluids:good Medication ibuprofen. PE: Temp(Src) 98.9 ??F (Temporal Artery) Wt 140 lb 12.8 oz (63.866 kg), SpO2 Readings from Last 1 Encounters: No data found for SpO2 Alert NAD, HEENT: Ears: Left: Normal Right: Normal Nose: purulent rhinorrhea Throat: injected Neck: supple Heart: Normal PMI. regular rate and rhythm, normal S1, S2, no murmurs or gallops. Lungs: Clear to auscultation and Normal breath sounds bilaterally Impression: Sinusitis Plan: Antibiotic per rx in this encounter. Supportive care discussed. Follow up prn. * Kiana Lofton RN - 03/23/2011 2:26 PM CDT Dayanara Hilton is a 10 y.o. female accompanied to office today for reevaluation of sinus infection. Completed abx for sinus infection as ordered. Was better while on abx, but sx did not completely resolve. Continues to have nasal congestion with greenish exudate, occasional sneezing, constant throat clearing cough. Fever, sore throat today. Temps up to 101.0. Ibuprofen given about 4 hours ago. documented in this encounter Plan of Treatment Not on file documented as of this encounter Visit Diagnoses Diagnosis Acute sinusitis, unspecified- Primary documented in this encounter
--- OUTSIDE RECORDS SUMMARY | 2024-10-26 08:01 | XMS_ITS | Encounter Summary ---
Author Organization [facility] Address [address] [facility] [place] [address] Care Team Providers Care Guest Experience Captain Name Role Phone Unavailable Primary Care Provider Unavailabl e Reason for Visit * Reason Comments Cough since mid February Encounter Details Date Type Department Care Team (Late st Contact Info) Description 04/12/2011 10:40 AM CDT Office Visit [facility] - Pediatrics [address] [place] [phone] Terrie Anderson MD [address] [place] [address] Acute sinusitis, unspecified (Primary Dx) Social History [...] - - Temperature 36.4 ??C (97.6 ??F) 04/12/2011 10:55 AM C DT Respiratory Rate - - Oxygen Saturation - - Inhaled Oxygen Concentration - - Weight 64.6 kg (142 lb 6.4 oz) 04/12/2011 10:55 AM CDT Height - - Body Mass Index - - documented in this encounter Progress Notes * Terrie Anderson MD - 04/12/2011 10:55 AM CDT SUBJECTIVE: Dayanara Hilton is a 11 y.o. female brought by mother with complaints of coryza, congestion, sneezing, productive cough and yellow and greenish nasal discharge for 1.5 months, since mid February. Completed 2nd course of abx x1 week ago. Sx improved while on abx but did not go away. Sore Throat :Yes, when sneezing. Also feels pressure in ears Fever: Yes, up to 101 intermittently normal activity, mood and playfulness, normal appetite and normal fluid intake. OBJECTIVE: Temp(Src) 97.6 ??F (Temporal Artery) Wt 142 lb 6.4 oz (64.592 kg) General appearance: alert, well appearing, and in no distress. Ears: bilateral TM's and external ear canals normal Nose: normal and patent, no erythema, discharge or polyps Oropharynx: mucous membranes moist, pharynx normal without lesions, post nasal thick yellow drainage Neck: supple, no significant adenopathy Lungs: clear to auscultation, no wheezes, rales or rhonchi, symmetric air entry Heart - regular rate and rhythm, normal S1 and S2, no murmurs ASSESSMENT: Sinusitis PLAN: See orders for this visit as documented in the electronic medical record Symptomatic therapy suggested: push fluids, rest and return office visit prn if symptoms persist orworsen. documented in this encounter Plan of Treatment Not on file documented as of this encounter Visit Diagnoses Diagnosis Acute sinusitis, unspecified- Primary documented in this encounter
--- OUTSIDE RECORDS SUMMARY | 2024-10-26 08:01 | XMS_ITS | Encounter Summary ---
Author Organization [facility] Address [address] [facility] [place] [address] Care Team Providers Care Manager Speech Name Role Phone Priya Sprague MD Primary Care Provider [phone] Reason for Visit * Reason Comments Imm Inj Encounter Details Date Type Department Care Team (Latest Contact Info) Description 04/18/2015 11:00 AM CDT Clinical Support [facility] Medical [facility] - Pediatrics [address] [place] [phone] Need for prophylactic vaccination and inoculation against other viral diseases(V04.89) Social History Tobacco Use Types Packs/Day Years Used Date Smoking Tobacco: Never Assessed Sex and Gender Information Value Date Recorded Sex Assigned at Not on file Gender Identity Not on file Sexual Orientation Not on file documented as of this encounter Plan of Treatment Not on file documented as of this encounter Visit Diagnoses Diagnosis Need for prophylactic vaccination and inoculation against other viral diseases(V04.89)- Primary Need for prophylactic vaccination and inoculation against other viral diseases documented in this encounter Care Teams Manager Speech Relationship Specialty Start Date End Date Priya Sprague MD PCP - General Pediatrics 09/13/14 documented as of this encounter
--- OUTSIDE RECORDS SUMMARY | 2024-10-26 08:01 | XMS_ITS | Patient Health Summary ---
Author Organization [facility] [employer] Address [address] [place] [address] Care Team Providers Care Chemical Compounder Helper Name Role Phone Priya Sprague MD Primary Care Provider Haja Garcia MD Unavailable Note from [facility],non-owned Affiliates and Associated Physician Practices is amultiple site organization consisting of ambulatory clinics and hospital sitesin [place], [place], [place] and [place]. This disclosure is being madepursuant to the Care Everywhere program and may not contain all information available regarding this patient. Last updated 18.[facility] [employer] Allergies No known active allergies Medications Be aware that medications may not be up to date on this document. Always verify current medications with the patient. No known medications Active Problems Problem Noted Date Diagnosed Date BMI (body mass index), pediatric, 95-99% for age 0807/06/2014 Depression 07/06/2014 Immunizations * DTaP VACCINE IM (6wk-6yrs)(Given 04/06/2005, 10/16/2001, 2000, 2000, 2000) * HEP B VACCINE, PED/ADOL(Given 01/12/2001, 2000, 2000) * HIB BOOSTER(Given 10/16/2001, 2000, 2000, 2000) * Human Papilloma Virus Quadrivalent Vaccine(Given 04/18/2015, 09/13/2014, 07/05/2014) * MENINGOCOCCAL CONJUGATE (MCV4P)(Given 06/22/2016, 07/05/2014) * MMR(Given 04/06/2005, 04/14/2001) * PNEUMOCOCCAL CONJ, PEDS(Given 05/08/2002, 01/12/2001, 2000, 2000) * POLIO IPV(Given 04/06/2005, 07/17/2001, 2000, 2000) * PPD(Given 04/06/2005, 04/14/2001) * TDAP (7yrs+)(Given 04/19/2011) * VARICELLA(Given 07/05/2014, 07/17/2001) Social History Tobacco Use Types Packs/Day Years [...] C DT Body Mass Index - - Procedures * TSH(Performed 07/26/2016) * LIPID PROFILE(Performed 07/26/2016) * MYCOPLASMA PNEUMONIAE AB IGG/IGM PANEL(Performed 07/26/2016) Performed for Mass * STANLEY-MORAES VIRUS ANTIBODY PANEL(Performed 07/26/2016) Performed for Mass * COMPREHENSIVE METABOLIC PANEL(Performed 07/26/2016) Performed for Mass * CBC W AUTO DIFFERENTIAL(Performed 07/26/2016) Performed for Mass * BARTONELLA HENSELAE IGG/IGM AB PANEL(Performed 07/26/2016) Performed for Mass * STREP A SCREEN - POINT OF CARE (AMB)(Performed 09/25/2010) Performed for Streptococcal pharyngitis * GROSS + MICRO EXAM(Performed 07/28/2007) Results * BARTONELLA HENSELAE ANTIBODY PANEL (07/26/2016 9:50 AM CDT) Bartonella henselae Antibody IgG Negative Neg:<1:32 0 titer [facility] INSURANCE BILL Bartonella henselae Antibody IgM Negative Neg:<1:10 0 titer [facility] Comment: Results for this test are for research purposes only by the assay's motor lodge clerk. ??The performance characteristics of this product have not been established. ??Results should not be used as a diagnostic procedure without confirmation of the diagnosis by another medically established diagnostic product or procedure. Blood specimen (specimen) BLOOD SPECIMEN / Unknown 07/26/2016 9:50 AM CDT 07/26/2016 1:00 PM CDT Narrative Resulting Agency Comment [address] ??[facility] [phone] Sudeep Gloria DO LAB - SEROLOGY ORDERABLES [facility] INSURANCE BILL [address] [place] [address] * (ABNORMAL) MYCOPLASMA PNEUMO ANTIBODY IGG/IGM PANEL (07/26/2016 9:50 AM CDT) Pathologist [facility] Mycoplasma pneumoniae Antibody IgG 1,927(H) 0 - 99 U/mL [facility] INSURANCE BILL Comment: ?Negative: ? <100 ?Indeterminate: 100 - 320 ?Positive: ? >320 ? The reference interval established is intended as a ? baseline only. ??Values >100 may indicate a recent ? infection with Mycoplasma pneumoniae and need to be ? confirmed either by a positive IgM result and/or an ? additional specimen drawn 2-4 weeks later showing a ? significant increase in antibody levels. Mycoplasma pneumoniae Antibody IgM 941(H) 0 - 769 U/mL [facility] INSURANCE BILL Comment: ?Negative ?<770 ? Clinically significant amount of M. pneumoniae antibody ? not detected. ?Low Positive ?? 770 - 950 ? M. pneumoniae specific IgM presumptively detected. ??It ? is recommended that another sample be collected 1-2 ? weeks later to assure reactivity. ?Positive ?>950 ? Highly significant amount of M. pneumoniae specific ? IgM antibody detected. Blood specimen (specimen) BLOOD SPECIMEN / Unknown 07/26/2016 9:50 AM CDT 07/26/2016 1:00 PM CDT Narrative Resulting Agency Comment [facility] [place] [address] ??[place] [phone] Sudeep Gloria DO LAB - SEROLOGY ORDERABLES [facility] INSURANCE BILL [address] [place] [address] * (ABNORMAL) STANLEY-MORAES VIRUS PANEL (07/26/2016 9:50 AM CDT) Stanley-Moraes Viral Capsid Antigen Antibody IgM <36.0 0.0 - 35.9 U/mL [facility] INSURANCE BILL Comment: ?Negative ?<36.0 ?Equivocal 36.0 - 43.9 ?Positive ?>43.9 Stanley-Moraes Virus Early Antigen Antibody IgG <9.0 0.0 - 8.9 U/mL [facility] INSURANCE BILL Comment: ?Negative ?< 9.0 ?Equivocal ??9.0 - 10.9 ?Positive ?>10.9 Stanley-Moraes Viral Capsid Antigen Antibody IgG 44.4(H) 0.0 - 17.9 U/mL [facility] INSURANCE BILL Comment: ?Negative ?<18.0 ?Equivocal 18.0 - 21.9 ?Positive ?>21.9 Stanley-Moraes Virus Antibody IgG Nuclear Antigen 27.2(H) 0.0 - 17.9 U/mL [facility] INSURANCE BILL Comment: ?Negative ?<18.0 ?Equivocal 18.0 - 21.9 ?Positive ?>21.9 Interpretation [facility] INSURANCE BILL Comment: ?EBV Interpretation Chart ?. ? Interpretation ?? EBV-IgM ??EA(D)-IgG ??VCA-IgG ??EBNA-IgG ?. ? EBV Seronegative ?- ?- ? - ?- ? Early Phase ? + ?- ? - ?- ? Acute Primary ? + ? +or- ? + ?- ? Infection ? Convalescence/Past ??- ? +or- ? + ?+ ? Infection ? Reactivated ?+or- ?+ ? + ?+ ? Infection ?+ Antibody Present ?- Antibody Absent Blood specimen (specimen) BLOOD SPECIMEN / Unknown 07/26/2016 9:50 AM CDT 07/26/2016 1:00 PM CDT Narrative Resulting Agency Comment [facility] [place] [address] [facility] ??[facility] [phone] Sudeep Gloria DO LAB - CHEMISTRY ORDERABLES [facility] INSURANCE BILL [address] [place] [address] * CBC W AUTO DIFFERENTIAL (07/26/2016 9:50 AM CDT) WBC 5.7 3.4 - 10.8 x10E3/uL [facility] INSURANCE BILL RBC 4.68 3.77 - 5.28 x10E6/uL [facility] INSURANCE BILL Hemoglobin 13.8 11.1 - 15.9 g/dL [facility] INSURANCE BILL Hematocrit 40.6 34.0 - 46.6 % [facility] INSURANCE BILL MCV 87 79 - 97 fL [facility] INSURANCE BILL MCH 29.5 26.6 - 33.0 pg [facility] INSURANCE BILL MCHC 34.0 31.5 - 35.7 g/dL [facility] INSURANCE BILL RDW 12.9 12.3 - 15.4 % [facility] INSURANCE BILL Platelet Count 224 150 - 379 x10E3/uL [facility] INSURANCE BILL Granulocytes % 57 % [facility] INSURANCE BILL Lymphocytes % 34 % [facility] INSURANCE BILL Monocytes % 7 % [facility] INSURANCE BILL Eosinophils % 1 % [facility] INSURANCE BILL Basophils % 1 % [facility] INSURANCE BILL Immature Cells NOT NEEDED [facility] INSURANCE BILL Comment:Ancillary determined the test is not needed Granulocytes Absolute 3.3 1.4 - 7.0 x10E3/uL [facility] INSURANCE BILL Lymphocytes Absolute 2.0 0.7 - 3.1 x10E3/uL [facility] INSURANCE BILL Monocytes Absolute 0.4 0.1 - 0.9 x10E3/uL [facility] INSURANCE BILL Eosinophils Absolute 0.1 0.0 - 0.4 x10E3/uL [facility] INSURANCE BILL Basophils Absolute 0.0 0.0 - 0.3 x10E3/uL [facility] INSURANCE BILL Immature Granulocytes 0 % [facility] INSURANCE BILL Immature Granulocytes Absolute 0.0 0.0 - 0.1 x10E3/uL [facility] INSURANCE BILL nRBC NOT NEEDED [facility] INSURANCE BILL Comment:Ancillary determined the test is not needed Comment Hematology NOT NEEDED [facility] INSURANCE BILL Comment:Ancillary determined the test is not needed Blood specimen (specimen) BLOOD SPECIMEN / Unknown 07/26/2016 9:50 AM CDT 07/26/2016 1:00 PM CDT Narrative Resulting Agency Comment [facility] [address] [facility] ??[facility] [phone] Sudeep Gloria DO LAB - HEMATOLOG Y ORDERABLES [facility] INSURANCE BILL [address] [place] [address] * (ABNORMAL) COMPREHENSIVE METABOLIC PANEL (07/26/2016 9:50 AM CDT) Glucose 90 65 - 99 mg/dL [facility] INSURANCE BILL Comment:Specimen received he molyzed. Clinical correlation indicated. BUN 11 5 - 18 mg/dL [facility] INSURANCE BILL Creatinine 0.91 0.57 - 1.00 mg/dL [facility] INSURANCE BILL BUN/Creatinine Ratio 12 9 - 25 [facility] INSURANCE BILL Sodium 138 134 - 144 mmol/L [facility] INSURANCE BILL Potassium 5.5(H) 3.5 - 5.2 mmol/L [facility] INSURANCE BILL Chloride 102 97 - 108 mmol/L [facility] INSURANCE BILL CO2 18 18 - 29 mmol/L [facility] INSURANCE BILL Calcium 9.6 8.9 - 10.4 mg/dL [facility] INSURANCE BILL Protein Total 7.0 6.0 - 8.5 g/dL [facility] INSURANCE BILL Albumin 4.3 3.5 - 5.5 g/dL [facility] INSURANCE BILL Globulin Total 2.7 1.5 - 4.5 g/dL [facility] INSURANCE BILL Albumin/Globulin Ratio 1.6 1.1 - 2.5 [facility] INSURANCE BILL Bilirubin Total 0.5 0.0 - 1.2 mg/dL [facility] INSURANCE BILL Alkaline Phosphatase 66 49 - 108 IU/L [facility] INSURANCE BILL AST 23 0 - 40 IU/L [facility] INSURANCE BILL ALT 15 0 - 24 IU/L [facility] INSURANCE BILL Blood specimen (specimen) BLOOD SPECIMEN / Unknown 07/26/2016 9:50 AM CDT 07/26/2016 1:00 PM CDT Narrative Resulting Agency Comment [facility] [place] [address] ??[facility] [phone] Sudeep Gloria DO LAB - CHEMISTRY ORDERABLES Performing Organization Address City/[facility]/ZIP Co de Phone Number [facility] INSURANCE BILL [address] [place] [address] * TSH (07/26/2016 9:50 AM CDT) TSH 1.690 0.450 - 4.500 uIU/mL [facility] INSURANCE BILL 07/26/2016 9:50 AM CDT 07/26/2016 1:00 PM CDT Narrative Resulting Agency Comment [facility] [address] ??[facility] [phone] Sudeep Gloria DO LAB - CHEMISTRY ORDERABLES Performing Organization Address [facility]/ZIP Co de Phone Number [facility] INSURANCE BILL [address] [place] [address] * (ABNORMAL) LIPID PROFILE (07/26/2016 9:50 AM CDT) Cholesterol 153 100 - 169 mg/dL [facility] INSURANCE BILL Triglycerides 90(H) 0 - 89 mg/dL [facility] INSURANCE BILL HDL Cholesterol 43 >39 mg/dL [facility] INSURANCE BILL Comment: According to ATP-III Guidelines, HDL-C >59 mg/dL is considered a negative risk factor for CHD. VLDL Calculated 18 5 - 40 mg/dL [facility] INSURANCE BILL LDL Calculated 92 0 - 109 mg/dL [facility] INSURANCE BILL Comment NOT NEEDED [facility] INSURANCE BILL Comment:Ancillary determined the test is not needed 07/26/2016 9:50 AM CDT 07/26/2016 1:00 PM CDT Narrative Resulting Agency Comment [facility] [address] ??[facility] [phone] Sudeep Gloria DO LAB - CHEMISTRY ORDERABLES [facility] INSURANCE BILL [address] [place] [address] * (ABNORMAL) STREP A SCREEN - POINT OF CARE (AMB) (09/25/2010 10:33 AM SLUDGE CONTROL OPERATOR) Strep A Rapid POCT positive NEGATIVE - POSITIVE Strep A Internal Control NEGATIVE - POSITIVE Throat swab (specimen) ENTIRE THROAT (SURFACE REGION OF NECK) / Unknown 09/25/2010 10:33 AM SLUDGE CONTROL OPERATOR Terrie Anderson MD LAB - POINT OF CARE ORDERABLES * GROSS + MICRO EXAM (07/28/2007 4:30 PM CDT) Result CASE NUMBER [id number] [facility] LAB PATH REPORT Comment: ORDERING PHYSICIAN ??ERIK MOORE SPECIMEN TYPE ?Appendix CLINICAL HISTORY ? The patient is a 7-year-old girl with appendicitis. GROSS DESCRIPTION ? The specimen labeled with the patient's name and appendix is received fixed in formalin for gross and microscopic examination and consists of a vermiform appendix with attached mesoappendix submitted in two segments. ??The segments have an aggregate measurement of 7.5 x 1 x 1 cm. The area of separation is identified 3.8 cm proximal to the tip of the appendix. ??The external surface is red-bui, shaggy, and partially covered by a yellow-white, fibrinopurulent exudate. ??The lumen contains brown-bui soft material. ??The appendiceal wall varies from 1 mm to 3 mm in thickness. ??The appendiceal lumen varies from 1 mm to 2 mm in diameter. ??The specimen is serially sectioned, and circulation sales representative sections are submitted in cassette A . (CT/ld) MICROSCOPIC DESCRIPTION ? 1 H/E Sections of the vermiform appendix show acute appendicitis, characterized by focal mucosal ulceration and a transmural neutrophilic inflammatory infiltrate. ??Pus and necrotic debris are seen within the lumen of the appendix. ??Foci of hemorrhage are seen within the lamina propria, extending into the submucosa and are also seen within the serosa. ??The serosa is markedly edematous, and shows mild fibrosis, acute and chronic inflammation, and a thick fibrinopurulent exudate. Crypt abscesses are scattered throughout the lamina propria. ??Ganglia are identified within the submucosa and muscularis propria. ??(HW/lw) DIAGNOSIS ? DIAGNOSIS ?? VERMIFORM APPENDIX, APPENDECTOMY ?- ACUTE APPENDICITIS. ?- ACUTE SEROSITIS. This case has been personally reviewed and interpreted by the attending (teaching) pathologist. Recreational Leader ? AD YARBROUGH RESIDENT IN PATHOLOG Mikala Reid M.D. PATHOLOGIST ?Ezekiel Eli M.D. ELECTRONICALLY NEVINEzekiel Sarabia MISCELLANEOUS SAMPLES / Unknown 07/28/2007 4:30 PM CDT 07/31/2007 8:08 AM CDT Historical Provider MD LAB - PATHOLOGY/C YTOLOGY ORDERABLES [facility] LAB PATH REPORT Care Teams Chemical Compounder Helper Relationship Specialty Start Date End Date Priya Sprague MD PCP - General Pediatrics 09/13/14 Haja Garcia MD [address] [facility] [address] [place] [address] PCP - Attributed-[facility] [place] 09/07/23
--- OUTSIDE RECORDS SUMMARY | 2024-10-26 08:01 | XMS_ITS | Encounter Summary ---
Author Organization [facility] Address [address] [place] [address] Care Team Providers Care Suspect Artist Name Role Phone Terrie Anderson MD Primary Care Provider [phone] Encounter Details Date Type Department Care Team (Late st Contact Info) Description 07/28/2007 Orders Only [facility] - Laboratory [address] [place] [id number] ProviderKd MD Social History Tobacco Use Types Packs/Day Years Used Date Smoking Tobacco: Never Assessed Sex and Gender Information Value Date Recorded Sex Assigned at Not on file Gender Identity Not on file Sexual Orientation Not on file documented as of this encounter Plan of Treatment Not on file documented as of this encounter Procedures Procedure Name Priority Date/Time Associated Diagnosis Comments GROSS + MICRO EXAM NATALIA 07/28/2007 4: 30 PM CDT documented in this encounter Results * GROSS + MICRO EXAM (07/28/2007 4:30 PM CDT) Result CASE NUMBER [id number] [facility] PATH REPORT Comment: ORDERING PHYSICIAN ??ERIK [...] diameter. ??The specimen is serially sectioned, and sales service representative sections are submitted in cassette A [...] and interpreted by the attending (teaching) pathologist. Infantry Assaultman ? AD YARBROUGH RESIDENT IN PATHOLOG Mikala Reid M.D. PATHOLOGIST ?Ezekiel Eli M.D. ELECTRONICALLY NEVIN Ezekiel Eli MISCELLANEOUS SAMPLES / Unknown 07/28/2007 4:30 PM CDT 07/31/2007 8:08 AM CDT Historical Provider LAB - PATHOLOGY/C YTOLOGY ORDERABLES [facility] PATH REPORT documented in this encounter Visit Diagnoses Not on filedocumented in this encounter Care Teams Suspect Artist Relationship Specialty Start Date End Date Terrie Anderson MD PCP - General Pediatrics 11/19/11 09/12/14 documented as of this encounter
--- OUTSIDE RECORDS SUMMARY | 2024-10-26 08:01 | XMS_ITS | Encounter Summary ---
Author Organization [facility] Address [address] [place] [address] Care Team Providers Care Eye Surgeon Name Role Phone Priay Sprague MD Primary Care Provider [phone] Reason for Visit * Reason Comments Swelling right side of jaw x1 month Encounter Details Date Type Department Care Team (Late st Contact Info) Description 07/26/2016 9:20 AM CDT Office Visit [facility] Medical [facility] - Pediatrics [address] [place] [address] [address] [place] [phone] Mindi Collazo DO [address] [place] [phone] Mass (Primary Dx) Social History Tobacco Use Types [...] Pressure - - Pulse - - Temperature 36.7 ??C (98.1 ??F) 07/26/2016 9:05 AM CD T Respiratory Rate - - Oxygen Saturation - - Inhaled Oxygen Concentration - - Weight 90.4 kg (199 lb 6.4 oz) 07/26/2016 9:05 A M CDT Height - - Body Mass Index - - documented in this encounter Progress Notes * Mindi Collazo DO - 07/29/2016 1:31 PM CDT Called and spoke with mom that mycoplasma titers were positive. Other lab work was normal (CBC, catscratch, ebv- showed old infection, lipids and thyroid testing from previous visit) Ultrasound set up in a week will treat with azithromycin and see if it improves at all by then if so can cancel. Ifnot will get ultrasound. * Mindi Collazo DO - 07/26/2016 9:11 AM CDT Sick Visit Name: Dayanara Hilton Age: 16 y.o. Accompanied By: Mother CC: Chief Complaint Patient presents with ??? Swelling right side of jaw x1 month HPI: Right side jaw swelling for a month. Hurts to open mouth hurts at the angle. No fevers. Mild cough came and went. No injury. Chewing okay grit or opening mouth okay. Right at the angle. Started as a smaller lump and getting bigger and bigger. Getting a lot bigger. Much more noticeable. Energy level sleeps more than before. [place] this was more school. No rashes. No fevers feeling over all fine. Does have exposure to kittens. Mom has had cat scratch before in arm pit. Current Medications: No current outpatient prescriptions on file. No current facility-administered medications for this visit. Allergies: No Known Allergies PE: Temp(Src) 98.1 ??F Wt 90.447 kg (199 lb 6.4 oz) General alert, cooperative, no distress Skin Skin color, texture, turgor normal. No rashes or lesions Head NCAT w/o lesions or tenderness Eyes/Ears sclera and conjunctiva clear bilateral TM's and external ear canals normal Nose/ Throat nose:normal, throat: no erythema or exudates noted. Teeth and gums normal Neck Angle of the right jaw obscured by mass that extends under the jaw. Firm and non mobile. Seemsglobe like smaller than a golf ball. No other nodes enlarged Heart regular rate and rhythm, S1, S2 normal, no murmur, click, rub or gallop Lungs clear to auscultation bilaterally Impression / Plan: 1. Mass- lymph node vs other mass etiology. Will get labs for bartonella, mycoplasma, cbc, cmp and EBV. Ultrasound to distinguish if on the jaw vs a node. Will follow up with lab results. * Kiana Lofton RN - 07/26/2016 9:06 AM CDT Dayanara Hilton is a 16 y.o. female accompanied to office today by Mom for evaluation of swelling to right side of jaw x1 month. Some discomfort/popping when opening mouth. Pt says that she has been well. Does not remember injury to mouth. Feels that everything okay with gums/teeth. documented in this encounter Miscellaneous Notes * Addendum Note - Mindi Collazo DO - 07/29/2016 1:34 PM CDTAddended by: MINDI COLLAZO on: 07/29/2016 01:34 PM Modules accepted: Orders documented in this encounter Plan of Treatment [...] Where can I go for more information? [place] [employer] ( ) www.aap.org HealthyChildren.org www.healthychildren.org U.S. Department of Health and Human Services www.hhs.gov Website and free downloadable taylor for [employer]: http://www.[employer]/ Use safety retraint in car Lifestyle On track( 016 10:41 AM CDT) No Kiana Shaw RN documented as of this encounter Procedures Procedure Name Priority Date/Time Associated Diagnosis Comments BARTONELLA HENSELAE IGG/IGM AB PANEL Routine 07/26/2016 9:50 AM CDT Mass MYCOPLASMA PNEUMONIAE AB IGG/IGM PANEL Routine 07/26/2016 9:50 AM CDT Mass MARLIN-MORAES VIRUS ANTIBODY PANEL Routine 07/26/2016 9:50 AM CDT Mass CBC W AUTO DIFFERENTIAL Routine 07/26/2016 9:50 AM CDT Mass COMPREHENSIVE METABOLIC PANEL Routine 07/26/2016 9:50 AM CDT Mass documented in this encounter Results * (ABNORMAL) MYCOPLASMA PNEUMO ANTIBODY IGG/IGM PANEL (07/26/2016 9:50 AM CDT) Mycoplasma pneumoniae Antibody IgG 1,927(H) 0 - [...] PM CDT Narrative Resulting Agency Comment [facility] [address] ??[facility] [phone] Mindi Collazo DO LAB - SEROLOGY ORDERABLES [facility] INSURANCE BILL [address] [facility] [place] [address] * (ABNORMAL) MARLIN-MORAES VIRUS PANEL (07/26/2016 9:50 AM CDT) Marlin-Moraes Viral Capsid Antigen Antibody IgM <36.0 0.0 - 35.9 U/mL [facility] INSURANCE BILL Comment: ?Negative ?<36.0 ?Equivocal 36.0 - 43.9 ?Positive ?>43.9 Marlin-Moraes Virus Early Antigen Antibody IgG <9.0 0.0 - 8.9 U/mL [facility] INSURANCE BILL Comment: ?Negative ?< 9.0 ?Equivocal ??9.0 - 10.9 ?Positive ?>10.9 Marlin-Moraes Viral Capsid Antigen Antibody IgG 44.4(H) 0.0 - 17.9 U/mL [facility] INSURANCE BILL Comment: ?Negative ?<18.0 ?Equivocal 18.0 - 21.9 ?Positive ?>21.9 Marlin-Moraes Virus Antibody IgG Nuclear Antigen 27.2(H) 0.0 [...] PM CDT Narrative Resulting Agency Comment [facility] [address] ??[facility] [phone] Mindi Collazo DO LAB - CHEMISTRY ORDERABLES [facility] INSURANCE BILL [address] [place] [address] * (ABNORMAL) COMPREHENSIVE METABOLIC PANEL (07/26/2016 9:50 [...] PM CDT Narrative Resulting Agency Comment [facility] [address] ??[facility] [phone] Mindi Collazo DO LAB - CHEMISTRY ORDERABLES [facility] INSURANCE BILL [address] [place] [address] * CBC W AUTO DIFFERENTIAL (07/26/2016 9:50 [...] PM CDT Narrative Resulting Agency Comment [facility] [address] [facility] ??[facility] [phone] Mindi Collazo DO LAB - HEMATOLOG Y ORDERABLES Performing Organization Address [facility] Co de Phone Number [facility] INSURANCE BILL [address] [place] [address] * BARTONELLA HENSELAE ANTIBODY PANEL (07/26/2016 9:50 AM CDT) Bartonella henselae Antibody IgG Negative Neg:<1:32 0 titer [facility] INSURANCE BILL Bartonella henselae Antibody IgM Negative Neg:<1:10 0 titer [facility] INSURANCE BILL Comment: Results for this test are for research purposes only by the assay's child watch attendant. ??The performance characteristics of this product have not been established. ??Results should not be used as a diagnostic procedure without confirmation of the diagnosis by another medically established diagnostic product or procedure. Blood specimen (specimen) BLOOD SPECIMEN / Unknown 07/26/2016 9:50 AM CDT 07/26/2016 1:00 PM CDT Narrative Resulting Agency Comment [facility] [address] ??[facility] [phone] Mindi Collazo DO LAB - SEROLOGY ORDERABLES Performing Organization Address City/[facility] Co de Phone Number [facility] INSURANCE BILL [address] [place] [address] documented in this encounter Visit Diagnoses Diagnosis Mass- Primary Localized superficial swelling, mass, or lump documented in this encounter Care Teams Eye Surgeon Relationship Specialty Start Date End Date Priya Sprague MD PCP - General Pediatrics 09/13/14 documented as of this encounter
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
--- OUTSIDE RECORDS SUMMARY | 2024-10-26 08:01 | XMS_ITS | Encounter Summary ---
Author Organization [facility] Address [address] [place] [address] [place] [address] Care Team Providers Care Metal Weather Stripper Name Role Phone Unavailable Primary Care Provider Unavailabl e Reason for Visit * Reason Comments Cough Ear Problem Encounter Details Date Type Department Care Team (Late st Contact Info) Description 03/01/2011 3:40 PM CDT Office Visit [facility] Medical [facility] - Pediatrics [address] [place] [phone] Terrie Anderson MD [address] [place] [address] Acute sinusitis, unspecified (Primary Dx) [...] Pressure - - Pulse - - Temperature 37.1 ??C (98.7 ??F) 03/01/2011 3:47 PM CD T Respiratory Rate - - Oxygen Saturation - - Inhaled Oxygen Concentration - - Weight 64.3 kg (141 lb 12.8 oz) 03/01/2011 3:47 PM CDT Height - - Body Mass Index - - documented in this encounter Progress Notes * Terrie Anderson MD - 03/01/2011 3:47 PM CDT SUBJECTIVE: Dayanara Hilton is a 10 y.o. female brought by mother with complaints of coryza, congestion, sneezing, dry cough alternating with a productive cough (yellow sputum at times), headache and bilateral ear no drainage, fullness, hears echoing for 2 weeks. No wheezing. Family history of allergies. Sore Throat :No Fever: No normal activity, mood and playfulness, normal appetite, normal fluid intake, normal sleep, normal urination and normal stools. OBJECTIVE: There were no vitals taken for this visit. General appearance: alert, well appearing, and in no distress. Ears: bilateral TM's and external ear canals normal Nose: normal and patent, no erythema, discharge or polyps Oropharynx: mucous membranes moist, pharynx normal without lesions Neck: supple, no significant adenopathy Lungs: clear to auscultation, no wheezes, rales or rhonchi, symmetric air entry Heart - regular rate and rhythm, normal S1 and S2, no murmurs ASSESSMENT: sinusitis PLAN: See orders for this visit as documented in the electronic medical record Symptomatic therapy suggested: push fluids, rest and return office visit prn if symptoms persist orworsen. documented in this encounter Plan of Treatment Not on file documented as of this encounter Visit Diagnoses Diagnosis Acute sinusitis, unspecified- Primary documented in this encounter
--- OUTSIDE RECORDS SUMMARY | 2024-10-26 08:01 | XMS_ITS | Encounter Summary ---
Author Organization [facility] Address [address] [place] [address] Care Team Providers Care Global Account Executive Name Role Phone Priya Sprague MD Primary Care Provider [phone] Reason for Visit * Reason Onset Date Comments Complete Physical Exam 06/22/2016 Encounter Details Date Type Department Care Team (Late st Contact Info) Description 06/22/2016 11:00 AM CDT Office Visit [facility] - Pediatrics [address] [place] [phone] Priay Sprague MD [address] [place] [phone] Encounter for routine child health examination without abnormal findings [Z00.129] (Primary Dx); Need for vaccination; BMI (body mass index), pediatric, 95-99% for age; Obesity, unspecified obesity severity, unspecified obesity type Social History Tobacco Use Types Packs/Day Years [...] Pulse 56 06/22/2016 10:38 AM CDT Temperature - - Respiratory Rate - - Oxygen Saturation - - Inhaled Oxygen Concentration - - Weight 92.2 kg (203 lb 3.2 oz) 06/22/20 16 10:38 AM CDT Height 169.9 cm (5' 6.88 ) 06/22/2016 1 0:38 AM CDT Body Mass Index 31.94 06/22/2016 10:38 AM CDT Body Mass Index Percentile 96.72% 06/22 10:38 AM CDT Growth Chart: [facility][NOTE 3] (Girls, 2- 20 Years) documented in this encounter Patient Instructions * Patient Instructions* Kiana Lofton RN - 06/22/2016 10:39 AM CDT YOUR GROWING CHILD: 15 TO 17 YEARS Child???s Name: Dayanara Hilton Today???s Date: 06/22/2016 BP 124/64 mmHg Pulse 56 Wt 92.171 kg (203 lb 3.2 oz) BMI 31.93 kg/m2 Wt Readings from Last 1 Encounters: 06/22/16 92.171 kg (203 lb 3.2 oz) (98 %*, Z = 2.10) * Growth percentiles are based on CDC 2-20 Years data. 98%ile (Z=2.10) based on CDC 2-20 Years onzoyl-obc-uhn data using vitals from 06/22/2016. Ht Readings from Last 1 Encounters: 06/22/16 1.699 m (5' 6.88 ) (87 %*, Z = 1.11) * Growth percentiles are based on CDC 2-20 Years data. 87%ile (Z=1.11) based on CDC 2-20 Years fjwlqry-bvv-hhm data using vitals from 06/22/2016. IMMUNIZATIONS One of the best ways to insure continued good health for your child is through a program of regularimmunizations. Many contagious diseases have now been controlled by immunizations. We routinely immunize children at the time of their regular checkups. It is important for you to keep a record of all immunizations given. This information will be of value to you in the care of your child in the future. We will provide you a copy of your immunization record at each of your visits. WHAT TO EXPECT Talk with your child after school about their day, what they liked, what they didn???t like, and ifthey have any concerns. Talk with your child about what to do if they or someone they know is beingbullied. Speak with your child about what they might want to do after high school, where they might want to go to college, and if they have a career in mind. It???s a good idea to give your child chores to do around the house. Some age appropriate chores include: 1. Wash dishes 2. Prepare simple family meals 3. [place] leaves 4. Take the trash out for pick-up 5. Be responsible for feeding and watering the family pet 6. Keep bedroom and designates room in house clean 7. Vacuum individual rooms 8. Be responsible for homework 9. Help younger siblings with their chores Limit TV and electronic device time to 5-6 hours a day. Make sure that your child is active for at least 3 hours a day. Talk to your child about not using cigarettes, using drugs, or drinking alcohol. Make sure that youare familiar with the friends that they are spending time with. Teach your child the importance of delaying sexual behavior and make sure they know that they can ask you any questions that they make have about sexual behaviors. SAFETY POISON CONTROL: (PLEASE POST IN YOUR HOME OR ON YOUR PHONE) There are three ingredients for childhood injuries and accidents: the child, the object, and the environment in which the injury happens. Therefore, you must be aware of all three. Continue to be aware of poisonous hazards in your home, basement, and garage. Establish a plan for leaving the house in case of fire. Alert your children to be careful around strange animals, and to not bother any animal that is eating. Children should now know their name, address, and telephone number. Remind your child about not accepting rides or food from strangers. Helmets should be worn for anything that your child rides on that has wheels or could possibly fallout of or off of including but not limited to: bikes, skates, skate boards, scooters, horses, pogo sticks, etc. CAR SAFETY Please speak with your child about the importance of car safety. Make use that they wear seat beltsat all times while driving or being a passenger. Also speak to them about cell phone usage while driving. The texts and phone calls can WAIT. [place] and [place] law, effective July 04, 2006, says your child must be in a booster seat if they are ages 4 through 7 who weigh at least 40 pounds, unless they are 80 pounds or 4???9?? tall. DO NOT ALLOW ANYONE TO SMOKE AROUND YOUR CHILD. DIET Make sure that your child is eating breakfast in the morning high school special education teacher. Encourage them to eat at least 3 servings of dairy a day and at least 5 serving of vegetables/fruits per day. Limit candy, soft drinks, and other high fat/calorie food and snacks. TEETH Your child should be established and receiving regular check-ups with a dentist. A daily routine ofbrushing at least twice a day needs to be in place by now. Frequently your child may need some supervision for proper technique. Also, your child should be flossing at least once daily. SLEEP Make sure that your child is getting at least 8-10 hours of sleep a night. Where can I go for more information? [place] [employer] ( ) www.aap.org, HealthyChildren.org www.healthychildren.org Website and free downloadable taylor for smartphones: http://www.Sush.io/ and http://www.Metacafe/ documented in this encounter Progress Notes * Priya Sprague MD - 06/22/2016 10:47 AM CDT Adolescent WCC Reviewed Nurse's Adolescent Note PHX: depression, cutting Medications: none ROS Has been trying to eat more fruits and veggies. Has been trying to lose weight Stomachaches, Headaches: No Constipation/Diarrhea: No Girls: Menses Yes: monthly, lasts 7 days Social History: School: [employer], Grade 11th. Home:lives with mom Activity/Exercise: fair. With exercise, CP, SOB, dizziness? No Alcohol: denies Drugs:denies Sex:denies Smoking:denies Totxnvhdzi-KWW-3 score : 6 see scanned Mom reports that mood seems to be better. Seems to be more tired this summer. - has been going to bed at midnight or later. Physical Exam: Wt Readings from Last 3 Encounters: 06/22/16 92.171 kg (203 lb 3.2 oz) (98 %*, Z = 2.10) 06/03/16 95.437 kg (210 lb 6.4 oz) (99 %*, Z = 2.19) 10/28/14 106.232 kg (234 lb 3.2 oz) (100 %*, Z = 2.63) * Growth percentiles are based on CDC 2-20 Years data. Ht Readings from Last 3 Encounters: 06/22/16 1.699 m (5' 6.88 ) (87 %*, Z = 1.11) 10/28/14 1.689 m (5' 6.5 ) (88 %*, Z = 1.16) 07/05/14 1.692 m (5' 6.62 ) (90 %*, Z = 1.28) * Growth percentiles are based on CDC 2-20 Years data. 98%ile (Z=2.10) based on CDC 2-20 Years caemjw-yjy-sqz data using vitals from 06/22/2016. 87%ile (Z=1.11) based on CDC 2-20 Years ebmbykp-jcc-opi data using vitals from 06/22/2016. BP 124/64 mmHg Pulse 56 Wt 92.171 kg (203 lb 3.2 oz) BMI 31.93 kg/m2 Blood pressure percentiles are 83% systolic and 37% diastolic based on 2000 NHANES data. GENERAL: Alert, NAD EYES: PERRLA, EOMI, red [...] Straight SKIN: no rashes or lesions Impression: 1. Well child with normal growth and development. 2. BMI>95%/obese --but decreasing Plan: Anticipatory guidance discussed included nutrition, safety, dentist, exercise. Vaccines: Meningococcal BMI> 85%: Yes Classification of weight: obese Blood Pressure interpretation: normal Follow up in 1 year. * Kiana Lofton RN - 06/22/2016 10:40 AM CDT Nurse Adolescent Screen Parental/Patient Concerns: none Diet: Milk 2%, 8 ounces per day. Vegetables: good, fruits: good, Dental: regular dental visits? No documented in this encounter Plan of Treatment Scheduled Orders Name Type Priority Associated Diagnoses Orde r Schedule LIPID PROFILE (LIPID PANEL) Lab Routine BMI (body mass index), pediatric, 95-99% for age Ordered: 06/22/2016 GLUCOSE Lab Routine BMI (body mass index), pediatric, 95-99% for age Ordered: 06/22/2016 TSH Lab Routine BMI (body mass index), pediatric, 95-99% for age Ordered: 06/22/2016 documented as of this encounter Goals Goal [...] Where can I go for more information? [place] [employer] ( ) www.aap.org HealthyChildren.org www.healthychildren.org U.S. Department of Health and Human Services www.hhs.gov Website and free downloadable taylor for smartphones: http://Rough Cut Films.Intent HQ/ Use safety retraint in car Lifestyle On track( 016 10:41 AM CDT) No Kiana Shaw RN documented as of this encounter Visit Diagnoses Diagnosis Encounter for routine child health examination without abnormal findings [Z00.129]- Primary Routine infant or child health check Need for vaccination Need for prophylactic vaccination and inoculation against unspecified single disease BMI (body mass index), pediatric, 95-99% for age Body Mass Index, pediatric, greater than or equal to 95th percentile for age Obesity, unspecified obesity severity, unspecified obesity type documented in this encounter Care Teams Global Account Executive Relationship Specialty Start Date End Date Priya Sprague MD PCP - General Pediatrics 09/13/14 documented as of this encounter
--- OUTSIDE RECORDS SUMMARY | 2024-10-26 08:01 | XMS_ITS | Encounter Summary ---
Author Organization [facility] Address [address] [place] [address] Care Team Providers Care Car Construction Superintendent Name Role Phone Priya Sprague MD Primary Care Provider [phone] Reason for Visit * Reason Comments URI x 2 weeks c/o cough, burning sinuses, runny stuffy nose, fever ^101. Sore throat. Encounter Details Date Type Department Care Team (Late st Contact Info) Description 10/28/2014 2:45 PM ENERGY RATER Office Visit [facility] Medical [facility] - Pediatrics [address] [place] [address] [address] [place] [phone] Urbano العراقي MD [address] [place], [place] [id number] Sinusitis, acute (Primary Dx); Obesity Social History Tobacco Use Types Packs/Day Years Used Date Smoking Tobacco: Never Assessed Sex and Gender Information Value Date Recorded Sex Assigned at Not on file Gender Identity Not on file Sexual Orientation Not on file documented as of this encounter Last Filed Vital Signs Vital Sign Reading Time Taken Comments Blood Pressure - - Pulse - - Temperature 37.8 ??C (100.1 ??F) 10/28/2014 2:[address] Respiratory Rate - - Oxygen Saturation - - Inhaled Oxygen Concentration - - Weight 106.2 kg (234 lb 3.2 oz) 10/28/2014 2:35 PM ENERGY RATER Height 168.9 cm (5' 6.5 ) 10/28/2014 2:35 PM ENERGY RATER Body Mass Index 37.23 10/28/2014 2:35 PM ENERGY RATER Body Mass Index Percentile 99.44% 10/28/2014 2:3 5 PM ENERGY RATER Growth Chart: [facility] (Girls, 2- 20 Years) documented in this encounter Progress Notes * Urbano العراقي MD - 10/28/2014 2:51 PM CST Dayanara Hilton, 14 y.o., female here with a complaint of upper respiratory infection symptoms.x 2 weeks c/o cough, burning sinuses, runny stuffy nose, fever ^101. Sore throat. C/o of headache/tnederness above the eyes. Fever Yes, Tmax 101 Now gone Runny nose Yes, green Mejia Yes Cough:Yes, night > day Sleep fair Appetitiegood Fluids good Medications: Current outpatient prescriptions:amoxicillin-clavulanate (AUGMENTIN) 875-125 MG tablet, Take 1 Tab by mouth 2 times daily with morning and evening meal., Disp: 20 Tab, Rfl: 0; sertraline (ZOLOFT) 50 MG tablet, Take 1/2 tab daily for 7 days then increase to 1 tab daily, Disp: 30 Tab, Rfl: 1 PE: Temp(Src) 100.1 ??F (Temporal Artery) Wt 106.232 kg (234 lb 3.2 oz) BMI 37.24 kg/m2, Alert, NAD, obese HEENT: Ears Right: Tympanic membrane: dull Left: Tympanic membrane: dull Nose Discharge purulent Throat injected Neck normal, neck supple, trachea midline, no significant adenopathy Chest: no increased work of breathing Lungs Respiratory effort normal, clear to auscultation, normal breath sounds bilaterally Heart Normal PMI. regular rate and rhythm, normal S1, S2, no murmurs or gallops. Impression: 1.) sinusitis 2.) obesity Plan: Supportive care reviewed. Discussed reasons to call back. Follow up as needed. Discussed weight reduction with diet and exercise. Orders Placed This Encounter ??? amoxicillin-clavulanate (AUGMENTIN) 875-125 MG tablet GY RATER documented in this encounter Plan of Treatment Not on file documented as of this encounter Visit Diagnoses Diagnosis Sinusitis, acute- Primary Acute sinusitis, unspecified Obesity Obesity, unspecified documented in this encounter Care Teams Car Construction Superintendent Relationship Specialty Start Date End Date Priya Sprague MD PCP - General Pediatrics 09/13/14 documented as of this encounter
--- OUTSIDE RECORDS SUMMARY | 2024-10-26 08:01 | XMS_ITS | Encounter Summary ---
Author Organization [facility] Address [address] [facility] [place] [address] Care Team Providers Care Mechanical Engineering Advisor Name Role Phone Priya Sprague MD Primary Care Provider [phone] Reason for Visit * Reason Comments Ear Pain Bilateral ear pain x 5 days. Nasal congestion runny nose. No fever or drainage. Encounter Details Date Type Department Care Team (Late st Contact Info) Description 06/03/2016 11:15 AM CDT Office Visit [facility] - Pediatrics [address] [place] [phone] Priya Sprague MD [address] [place] [phone] Acute URI (Primary Dx); Decreased hearing of both ears Social History Tobacco Use Types Packs/Day Years Used Date Smoking Tobacco: Never Assessed Sex and Gender Information Value Date Recorded Sex Assigned at Not on file Gender Identity Not on file Sexual Orientation Not on file documented as of this encounter Last Filed Vital Signs Vital Sign Reading Time Taken Comments Blood Pressure - - Pulse - - Temperature 36.8 ??C (98.2 ??F) 06/03/2016 11:15 AM C DT Respiratory Rate - - Oxygen Saturation - - Inhaled Oxygen Concentration - - Weight 95.4 kg (210 lb 6.4 oz) 06/03/2016 11:15 AM CDT Height - - Body Mass Index - - documented in this encounter Progress Notes * Priya Sprague MD - 06/03/2016 11:31 AM CDT Dayanara Hilton, 16 y.o., female, here for evaluation of bilateral muffled hearing and URI sx for 5 days. Fever: No Congestion:Yes Runny Nose:Yes, clear Ear Drainage:No Cough:Yes, mild Sleep:good Appetitie:good Fluids:good Also went to concert 5 nights ago and hearing has been muffled since then. Not really having any ear pain. Medications: none. PE: Temp(Src) 98.2 ??F (Temporal Artery) Wt 95.437 kg (210 lb 6.4 oz) Alert, NAD HEENT: Ears: Left:Tympanic membrane: full, mildly pink, +light reflex Right: Tympanic membrane: full, clear fluid, pink, +light reflex Nose:mucosal edema and congestion Throat:injected posteriorly Neck: supple, no signif LAD Heart: normal S1, S2, no murmurs or gallops. Lungs:Clear to auscultation and Normal breath sounds bilaterally Impression: 1. URI 2. Decreased hearing --likely due to exposure to loud music and current congestion Plan: supportive care. May try otc decongested for relief of sx. Hearing should improve as nasal sx improve documented in this encounter Plan of Treatment Not on file documented as of this encounter Visit Diagnoses Diagnosis Acute URI- Primary Acute upper respiratory infections of unspecified site Decreased hearing of both ears documented in this encounter Care Teams Mechanical Engineering Advisor Relationship Specialty Start Date End Date Priya Sprague MD PCP - General Pediatrics 09/13/14 documented as of this encounter
--- OUTSIDE RECORDS SUMMARY | 2024-10-26 08:01 | XMS_ITS | Encounter Summary ---
Author Organization [facility] Address [address] [place] [address] Care Team Providers Care Getter Operator Name Role Phone Priya Sprague MD Primary Care Provider [phone] Encounter Details Date Type Department Care Team (Late st Contact Info) Description 07/26/2016 Orders Only [facility] Medical [facility] - Pediatrics [address] [place] [phone] [place] [address] [place] [phone] Social History Tobacco Use Types Packs/Day Years [...] Where can I go for more information? [place] [employer] ( ) www.aap.org HealthyChildren.org www.healthychildren.org U.S. Department of Health and Human Services www.hhs.gov Website and free downloadable taylor for 6connects: http://www.Mingyian/ Use safety retraint in car Lifestyle On track( 016 10:41 AM CDT) No Kiana Shaw RN documented as of this encounter Procedures Procedure Name Priority Date/Time Associated Diagnosis Comments TSH 07/26/2016 9:50 AM CDT LIPID PROFILE 07/26/2016 9:50 AM CDT documented in this encounter Results * TSH (07/26/2016 9:50 AM CDT) TSH 1.690 0.450 - 4.500 uIU/mL [facility] INSURANCE BILL 07/26/2016 9:50 AM CDT 07/26/2016 1:00 PM CDT Narrative Resulting Agency Comment [facility] [address] ??[facility] [phone] Sudeep Gloria DO LAB - CHEMISTRY ORDERABLES [facility] INSURANCE BILL [address] [place] [address] * (ABNORMAL) LIPID PROFILE (07/26/2016 9:50 AM [...] PM CDT Narrative Resulting Agency Comment [facility] [address] [facility] ??[facility] [phone] Sudeep Gloria DO LAB - CHEMISTRY ORDERABLES [facility] INSURANCE BILL [address] [place] [address] documented in this encounter Visit Diagnoses Not on filedocumented in this encounter Care Teams Getter Operator Relationship Specialty Start Date End Date Priya Sprague MD PCP - General Pediatrics 09/13/14 documented as of this encounter
--- OUTSIDE RECORDS SUMMARY | 2024-10-26 08:01 | XMS_ITS | Encounter Summary ---
Author Organization [facility] Address [address] [facility] [place] [address] Care Team Providers Care Cancer Program Consultant Name Role Phone Priya Sprague MD Primary Care Provider [phone] Reason for Visit * Reason Comments Imm Inj Encounter Details Date Type Department Care Team (Latest Contact Info) Description 09/13/2014 3:50 PM OPTICAL ENGINEERING MANAGER Clinical Support [facility] Medical [facility] - Pediatrics [address] [place] [phone] Need for prophylactic vaccination and inoculation against other viral diseases Social History Tobacco Use Types Packs/Day Years [...] diseases documented in this encounter Care Teams Cancer Program Consultant Relationship Specialty Start Date End Date Priya Sprague MD PCP - General Pediatrics 09/13/14 documented as of this encounter
--- OUTSIDE RECORDS SUMMARY | 2024-10-26 08:02 | XMS_ITS | Encounter Summary ---
Author Organization [employer] Care Team Providers Care Regulatory Compliance Manager Name Role Phone Pritesh Chu MD Primary Care Provider [phone] Markus Finley MD Unavailable [phone] Zander Cha MD Unavailable Encounter Details Date Type Department Care Team (Latest Contact Info) Description 09/07/2024 Travel Social History Tobacco Use Types Packs/Day Years Used Date Smoking Tobacco: Former Cigarettes 0.5 5.6 S tarted: 04/18/2016 Smokeless Tobacco: Never Alcohol Use Standard Drinks/Week Comments Not Currently 0 (1 standard drink = 0.6 oz pur e alcohol) quit 2023 [facility] Utilities Answer Date Recorded In the past 12 months has [employer], gas, oil, or water [employer] threatened to shut off services in your home? Patient declined 08/01/2024 Social Connection and Isolation Panel [NHANES] A nswer Date Recorded In a typical week, how many times do you talk on the phone with family, friends, or neighbors? Patient declined 08/01/2024 How often do you get togethe r with friends or relatives? Patient declined 08/01/2024 How often do you attend cheondoism or taoist serv ices? Patient declined 08/01/2024 Do you belong to any clubs o r organizations such as cheondoism groups, unions, fraternal or athletic groups, or school groups? Patient declined 08/01/2024 How often do you attend meet ings of the clubs or organizations you belong to? Patient declined 08/01/2024 Are you , , di vorced, , never , or living with a partner? Patient declined 08/01/2024 AUDIT-C Answer Date Recorded Q1: How often do you have a drink containing alc ohol? Patient declined 08/01/2024 Q2: How many drinks containi ng alcohol do you have on a typical day when you are drinking? Patient declined 08/01/2024 Q3: How often do you have si x or more drinks on one occasion? Patient declined 08/01/2024 Overall Financial Resource Strain (CARDIA) Answe r Date Recorded How hard is it for you to pa y for the very basics like food, housing, medical care, and heating? Patient declined 08/01/2024 [facility] - Occupational Stress Questionnaire Answer Date Recorded Do you feel stress - tense, restless, nervous, or anxious, or unable to sleep at night because your mind is troubled all the time - these days? Patient declined 08/01/2024 Exercise Vital Sign Answer Date Recorde d On average, how many days pe r week do you engage in moderate to strenuous exercise (like a brisk walk)? Patient declined On average, how many minutes do you engage in exercise at this level? Patient declined 08/01/2024 Hunger Vital Sign Answer Date Recorded Within the past 12 months, y ou worried that your food would run out before you got the money to buy more. Patient declined Within the past 12 months, t he food you bought just didn't last and you didn't have money to get more. Patient declined PRAPARE - Transportation Answer Date Re corded In the past 12 months, has l ack of transportation kept you from medical appointments or from getting medications? Patient declined 08/01/2024 In the past 12 months, has l ack of transportation kept you from meetings, work, or from getting things needed for daily living? Patient declined 08/01/2024 Housing Stability Vital Sign Answer Shahid e Recorded In the last 12 months, was t here a time when you were not able to pay the mortgage or rent on time? Patient declined 08/01/20 24 In the past 12 months, how m any times have you moved where you were living? 1 08/01/2024 At any time in the past 12 m [facility], were you homeless or living in a halfway (including now)? Patient declined 08/01/2024 Sexually Active Control Partners Comments Yes Male Comments No Sex and Gender Information Value Date Recorded Sex Assigned at Female 06/20/2024 8:39 AM CDT Legal Sex Female 9:04 AM CDT Gender Identity Female 06/20/2024 8:39 AM CDT Sexual Orientation Bisexual 06/20/2024 8: 39 AM CDT documented as of this encounter Plan of Treatment Upcoming Encounters Date Type Department Care Team (Late st Contact Info) Description 11/15/2024 1:00 PM HOME HEALTH PROVIDER [facility] [address] [place] [address] Markus Finley MD [address] [place] [address] 11/15/2024 2:00 PM HOME HEALTH PROVIDER [facility]ment [facility] [address] [place] [address] Markus Finley MD [address] [place] [address] Discharge Disposition: Discharged to home or Selfcare documented as of this encounter Visit Diagnoses Not on filedocumented in this encounter Care Teams Regulatory Compliance Manager Relationship Specialty Start Date End Date Pritesh Chu MD [address] [place], [place] [id number] PCP - General Family Medicine 04/18/24 Markus Finley MD [address] [place] [address] Consulting Physician Medical Oncology 04/18/24 Zander Cha MD [address] [place] [address] Consulting Physician Colon and Rectal Surgery 08/24/24 documented as of this encounter
--- OUTSIDE RECORDS SUMMARY | 2024-10-26 08:02 | XMS_ITS | Encounter Summary ---
Author Organization [facility] Address [address] [facility] [place] [address] Phone Care Team Providers Care Cast Iron Drain Pipe Layer Name Role Phone Pritesh Chu MD Primary Care Provider [phone] Markus Finley MD Unavailable [phone] Zander Cha MD Unavailable Encounter Details Date Type Department Care Team (Late st Contact Info) Description 09/11/2024 1:30 PM [facility] TECHNICIAN Clinical Support [facility] Oncology Services [address] [place] [phone] Markus Finley MD [address] [place] [address] Metastatic melanoma (HCC) Discharge Disposition: Discharged to home or Selfcare Social History Tobacco Use Types Packs/Day Years Used Date Smoking Tobacco: Former Cigarettes 0.5 5.6 S tarted: 04/18/2016 Smokeless Tobacco: Never Alcohol Use Standard Drinks/Week Comments Not Currently 0 (1 standard drink = 0.6 oz pur e alcohol) quit 2023 [facility] Utilities Answer Date Recorded In the past 12 months has th e electric, gas, oil, or water [employer] threatened to shut off services in your home? Patient declined 08/01/2024 Social Connection and Isolation Panel [NHANES] A nswer Date Recorded In a typical week, how many times do you talk on the phone with family, friends, or neighbors? Patient declined 08/01/2024 How often do you get togethe r with friends or relatives? Patient declined 08/01/2024 How often do you attend druze or temple serv ices? Patient declined 08/01/2024 Do you belong to any clubs o r organizations such as druze groups, unions, fraternal or athletic groups, or [...] medical care, and heating? Patient declined 08/01/2024 [facility] - Occupational Stress Questionnaire Answer Date [...] any time in the past 12 m [facility], were you homeless or living in a usp (including now)? Patient declined 08/01/2024 Sexually Active Control Partners Comments Yes Male Comments No Sex and Gender Information Value Date Recorded Sex Assigned at Female 06/20/2024 8:39 AM CDT Legal Sex Female 9:04 AM CDT Gender Identity Female 06/20/2024 8:39 AM CDT Sexual Orientation Bisexual 06/20/2024 8: 39 AM CDT documented as of this encounter Last Filed Vital Signs Vital Sign Reading Time Taken Comments Blood Pressure 131/90 09/11/2024 1:44 PM [facility] TECHNICIAN Pulse 83 09/11/2024 1:44 PM [facility] TECHNICIAN Temperature 36.6 ??C (97.8 ??F) 09/11/2024 1:44 PM CS T Respiratory Rate 18 09/11/2024 1:44 PM [facility] TECHNICIAN Oxygen Saturation 98% 09/11/2024 1:44 PM [facility] TECHNICIAN Inhaled Oxygen Concentration - - Weight 114.2 kg (251 lb 12.8 oz) 09/11/2024 1:44 PM [facility] TECHNICIAN Height - - Body Mass Index 40.64 09/04/2024 11:07 AM CDT documented in this encounter Miscellaneous Notes * Interdisciplinary - Tatum Ortega RN - 09/11/2024 1:30 PM CST Pt ambulated into treatment room in stable condition. Port accessed per protocol. Flushed with easeand blood return noted. Labs drawn per MD orders. Fluids given per MD orders. Pt tolerated well. Port flushed and needle removed. Band aid placed. Pt discharged in stable condition. [facility] TECHNICIAN documented in this encounter Plan of Treatment Upcoming Encounters Date Type Department Care Team (Late st Contact Info) Description 11/15/2024 1:00 PM [facility] TECHNICIAN [facility] [address] [place] [address] Markus Finley MD [address] [place], [place] [id number] 11/15/2024 2:00 PM [facility] TECHNICIAN [facility] [address] [place] [address] Markus Finley MD [address] [place] [address] Discharge Disposition: Discharged to home or Selfcare documented as of this encounter Procedures Procedure Name Priority Date/Time Associated Diagnosis Comments CBC WITH AUTO DIFFERENTIAL STAT 09/11/2024 1:32 PM [facility] TECHNICIAN Metastatic melanoma (HCC) MAGNESIUM (MG) Routine 09/11/2024 1:32 PM [facility] TECHNICIAN CMP (COMPREHENSIVE METABOLIC PANEL) STAT 09/11/2024 1:32 PM [facility] TECHNICIAN Metastatic melanoma (HCC) COMPLETE BLOOD COUNT (CBC) WITH DIFF STAT 09/11/2024 1:32 PM [facility] TECHNICIAN Metastatic melanoma (HCC) documented in this encounter Results * (ABNORMAL) CBC WITH AUTO DIFFERENTIAL (09/11/2024 1:32 PM [facility] TECHNICIAN) WBC 9.23 4.00 - 12.00 10(3)/mcL 09/11/2024 2:07 PM [facility] TECHNICIAN [facility] RBC 4.07 3.80 - 5.30 10(6)/mcL 09/11/2024 2:07 PM [facility] HEMOGLOBIN (HGB) 12.9 12.0 - 15.8 g/dL 09/11/2024 2:07 PM [facility] HEMATOCRIT (HCT) 38.8 36.0 - 47.0 % 09/11/2024 2:07 PM [facility] MCV 95.3 82.0 - 96.0 fL 09/11/2024 2:07 PM [facility] MCH 31.7 26.0 - 34.0 pg 09/11/2024 2:07 PM [facility] MCHC 33.2 31.0 - 36.0 g/dL 09/11/2024 2:07 PM [facility] PLATELET COUNT 198 140 - 440 10(3)/mcL 09/11/2024 2:07 PM [facility] RDW 15.1 11.8 - 15.5 % 09/11/2024 2:07 PM [facility] MPV 9.5(L) 9.7 - 12.4 fL 09/11/2024 2:07 PM [facility] NEUTROPHILS 93.1(H) 47.0 - 73.0 % 09/11/2024 2:07 PM [facility] LYMPHOCYTES 3.8(L) 18.0 - 42.0 % 09/11/2024 2:07 PM [facility] MONOCYTES 3.0(L) 4.0 - 12.0 % 09/11/2024 2:07 PM [facility] EOSINOPHILS 0.0 0.0 - 5.0 % 09/11/2024 2:07 PM [facility] BASOPHILS 0.1 0.0 - 1.0 % 09/11/2024 2:07 PM [facility] ABSOLUTE NEUTROPHILS 8.59(H) 1.60 - 7.70 10(3)/mcL 09/11/2024 2:07 PM [facility] ABSOLUTE LYMPHOCYTES 0.35(L) 1.30 - 3.20 10(3)/mcL 09/11/2024 2:07 PM [facility] TECHNICIAN [facility] ABSOLUTE MONOCYTES 0.28 0.20 - 1.00 10(3)/mcL 09/11/2024 2:07 PM [facility] TECHNICIAN [facility] ABSOLUTE EOSINOPHIL 0.00 0.00 - 0.40 10(3)/mcL 09/11/2024 2:07 PM [facility] TECHNICIAN [facility] ABSOLUTE BASOPHILS 0.01 0.00 - 0.10 10(3)/mcL 09/11/2024 2:07 PM [facility] TECHNICIAN [facility] NRBC PER 100 WBC 0 09/11/20 24 2:07 PM [facility] RESULTS ARE CONSISTENT WITH PERIPHERAL SMEAR REVIEW Yes 09/11/2024 2:07 PM [facility] Blood Sub-Q Port Venou s Access Device (Medi-Port, Implanted Port) / Unknown 09/11/2024 1:32 PM [facility] TECHNICIAN 09/11/2024 1:33 PM [facility] TECHNICIAN us Markus Luana Finley MD HEMATOLOGY ORDERABLES Fi nal Result [facility] [address] [place] [address] * (ABNORMAL) CMP (COMPREHENSIVE METABOLIC PANEL) (09/11/2024 1:32 PM [facility] TECHNICIAN) SODIUM 139 136 - 145 mmol/L 09/11/2024 2:07 PM [facility] TECHNICIAN [facility] POTASSIUM 3.8 3.5 - 5.1 mmol/L 09/11/2024 2:07 PM [facility] TECHNICIAN [facility] CHLORIDE 107 98 - 107 mmol/L 09/11/2024 2:07 PM [facility] CO2, VENOUS 22 22 - 30 mmol/L 09/11/2024 2:07 PM [facility] TECHNICIAN [facility] ANION GAP 13.8 <18.0 mmol/L 09/11/2024 2:07 PM [facility] GLUCOSE 145(H) 70 - 99 mg/dL 09/11/2024 2:07 PM [facility] BUN 25(H) 5 - 18 mg/dL 09/11/2024 2:07 PM [facility] CREATININE, BLOOD 0.87 0.60 - 1.00 mg/dL 09/11/2024 2:07 PM [facility] BUN/CREATININE RATIO 29(H) 12 - 20 ratio 09/11/2024 2:07 PM [facility] TOTAL PROTEIN 6.2(L) 6.3 - 8.2 g/dL 09/11/2024 2:07 PM [facility] ALBUMIN 4.0 3.5 - 5.0 g/dL 09/11/2024 2:07 PM [facility] A/G RATIO 1.8 1.0 - 2.2 09/11/2024 2:07 PM [facility] CALCIUM 8.9 8.7 - 10.5 mg/dL 09/11/2024 2:07 PM [facility] T BILI 0.5 0.2 - 1.2 mg/dL 09/11/2024 2:07 PM [facility] SGOT (AST) 13 5 - 34 U/L 09/11/2024 2:07 PM [facility] SGPT (ALT) 56(H) 0 - 55 U/L 09/11/2024 2:07 PM [facility] ALKALINE PHOSPHATASE 58 40 - 150 U/L 09/11/2024 2:07 PM [facility] IS THE PATIENT REQUIRED TO BE FASTING? No 09/11/2024 2:07 PM [facility] GFR, ESTIMATED >60 >=60 09/11/2024 2:07 PM [facility] Comment: Creatinine Clearance is the preferred criteria for selecting drug dose adjustments in renally impaired patients. ??The GFR is provided as additional pertinent clinical information. GFR is reported in mL/min/1.73 sq m. Calculation based on the Chronic Kidney Disease Epidemiology Collaboration (CKD- EPI) equation refit without adjustment for race. GFR, EST. >60 >=60 024 2:07 PM [facility] TECHNICIAN [facility] GFR, EST. NONAFRICAN >60 >=60 09/11/2024 2:07 PM [facility] TECHNICIAN [facility] Blood Sub-Q Port Venou s Access Device (Medi-Port, Implanted Port) / Unknown 09/11/2024 1:32 PM [facility] TECHNICIAN 09/11/2024 1:33 PM [facility] TECHNICIAN Markus Finley MD CHEMISTRY ORDERABLES Fin al Result Performing Organization Address City/[facility]/ZIP Co de Phone Number [facility] [address] [place] [address] * MAGNESIUM (MG) (09/11/2024 1:32 PM [facility] TECHNICIAN) MAGNESIUM 2.1 1.6 - 2.6 mg/dL 09/11/2024 2:07 PM [facility] TECHNICIAN [facility] Blood Sub-Q Port Venou s Access Device (Medi-Port, Implanted Port) / Unknown 09/11/2024 1:32 PM [facility] TECHNICIAN 09/11/2024 1:33 PM [facility] TECHNICIAN Markus Finley MD CHEMISTRY ORDERABLES Fin al Result Performing Organization Address City/[facility]/ZIP Co de Phone Number [facility] [address] [place] [address] documented in this encounter Visit Diagnoses Diagnosis Metastatic melanoma (HCC) Melanoma of skin, site unspecified documented in this encounter Administered Medications Inactive Administered Medications - up to 3 most recent administrations Medication Order MAR Action Action Date Dose Rate Site 0.9 % sodium chloride solution at 999 mL/hr, Intravenous, ONCE, 1 dose, On Tue09/11/24 at 1400Indications:Metastatic melanoma (HCC) New Bag 09/11/2024 1:36 PM [facility] TECHNICIAN 999 mL/hr Heparin Na (Pork) Lock Flsh PF SOLN 50 Units 50 Units, Intravenous, PRN, Starting on Tue09/11/24 at 1333, Until Tue09/11/24 at 1745, Line CareIndications:Metastatic melanoma (HCC) Given 09/11/2024 2:45 PM [facility] TECHNICIAN 50 Units documented in this encounter Care Teams Cast Iron Drain Pipe Layer Relationship Specialty Start Date End Date Pritesh Chu MD [address] [place] [address] PCP - General Family Medicine 04/18/24 Markus Finley MD [address] [place] [address] Consulting Physician Medical Oncology 04/18/24 Zander Cha MD [address] [address] Consulting Physician Colon and Rectal Surgery 08/24/24 documented as of this encounter
--- OUTSIDE RECORDS SUMMARY | 2024-10-26 08:02 | XMS_ITS | Encounter Summary ---
Author Organization [employer]. Care Team Providers Care Account Receivable Associate Name Role Phone Pritesh Chu MD Primary Care Provider [phone] Markus Finley MD Unavailable [phone] Zander Cha MD Unavailable Encounter Details Date Type Department Care Team (Latest Contact Info) Description 08/29/2024 Travel Social History Tobacco Use Types Packs/Day Years Used Date Smoking Tobacco: Former Cigarettes 0.5 5.6 S tarted: 04/18/2016 Smokeless Tobacco: Never Alcohol Use Standard Drinks/Week Comments Not Currently 0 (1 standard drink = 0.6 oz pur e alcohol) quit 2023 [facility] Utilities Answer Date Recorded In the past 12 months has [employer], gas, oil, or water [employer] threatened to shut off services in your home? Patient declined 08/01/2024 Social Connection and Isolation Panel [NHANES] A nswer Date Recorded In a typical week, how many times do you talk on the phone with family, friends, or neighbors? Patient declined 08/01/2024 How often do you get togethe r with friends or relatives? Patient declined 08/01/2024 How often do you attend taoist or pentecostalism serv ices? Patient declined 08/01/2024 Do you belong to any clubs o r organizations such as taoist groups, unions, fraternal or athletic groups, or [...] medical care, and heating? Patient declined 08/01/2024 [facility] - Occupational Stress Questionnaire Answer Date Recorded [...] any time in the past 12 m [facility], were you homeless or living in a penitentiary (including now)? Patient declined 08/01/2024 Sexually Active [...] st Contact Info) Description 11/15/2024 1:00 PM FEED ELEVATOR WORKER Lab [facility] [address] [place] [address] Markus Finley MD [address] [place] [address] 11/15/2024 2:00 PM FEED ELEVATOR WORKER [facility]ment [facility] [address] [place] [address] Markus Finley MD [address] [place] [address] Discharge Disposition: Discharged to home or Selfcare documented as of this encounter Visit Diagnoses Not on filedocumented in this encounter Care Teams Account Receivable Associate Relationship Specialty Start Date End Date Pritesh Chu MD [address] [place], [place] [id number] PCP - General Family Medicine 04/18/24 Markus Finley MD [address] [place] [address] Consulting Physician Medical Oncology 04/18/24 Zander Cha MD [address] [place] [address] Consulting Physician Colon and Rectal Surgery 08/24/24 documented as of this encounter
--- OUTSIDE RECORDS SUMMARY | 2024-10-26 08:02 | XMS_ITS | Encounter Summary ---
Author Organization [facility] Address [address] [place] [address] Phone Care Team Providers Care Integrated Logistics Programs Director Name Role Phone Pritesh Chu MD Primary Care Provider [phone] Markus Finley MD Unavailable [phone] Zander Cha MD Unavailable Encounter Details Date Type Department Care Team (Late st Contact Info) Description 09/07/2024 Telephone [facility] Oncology Services [address] [place] [phone] Markus Finley MD [address] [place] [address] Social History Tobacco Use Types Packs/Day Years Used Date Smoking Tobacco: Former Cigarettes 0.5 5.6 S tarted: 04/18/2016 Smokeless Tobacco: Never Alcohol Use Standard Drinks/Week Comments Not Currently 0 (1 standard drink = 0.6 oz pur e alcohol) quit 2023 [facility] Utilities Answer Date Recorded In the past 12 months has [employer], gas, oil, or water company threatened to shut off services in your home? Patient declined 08/01/2024 Social Connection and Isolation Panel [NHANES] A nswer Date Recorded In a typical week, how many times do you talk on the phone with family, friends, or neighbors? Patient declined 08/01/2024 How often do you get togethe r with friends or relatives? Patient declined 08/01/2024 How often do you attend jain or yazidi serv ices? Patient declined 08/01/2024 Do you belong to any clubs o r organizations such as jain groups, unions, fraternal or athletic groups, or [...] medical care, and heating? Patient declined 08/01/2024 [facility] - Occupational Stress Questionnaire Answer Date [...] any time in the past 12 m [facility], were you homeless or living in a jail (including now)? Patient declined 08/01/2024 Sexually Active Control Partners Comments Yes Male Comments No Sex and Gender Information Value Date Recorded Sex Assigned at Female 06/20/2024 8:39 AM CDT Legal Sex Female 9:04 AM CDT Gender Identity Female 06/20/2024 8:39 AM CDT Sexual Orientation Bisexual 06/20/2024 8: 39 AM CDT documented as of this encounter Miscellaneous Notes * Telephone Encounter - Melba Pitts RN - 09/07/2024 9:20 AM CDT Call from pt. Reports feeling like she is going downhill the last couple days. Feels weak and dehydrated. Denies diarrhea, continues lomotil as directed. Continues predisone and potassium as directed. Pt denies fevers or flu-like symptoms. Pt added on to schedule today at 11:30 for labs and fluids. Per MD, will likely need to cut down steroids. documented in this encounter Plan of Treatment Upcoming Encounters Date Type Department Care Team (Late st Contact Info) Description 11/15/2024 1:00 PM COMPLEX CARE NURSE PRACTITIONER Lab [facility] Laboratory Services [address] [place] [address] Markus Finley MD [address] [place] [address] 11/15/2024 2:00 PM COMPLEX CARE NURSE PRACTITIONER Appointment [facility] MRI [address] [place] [phone] Markus Finley MD [address] [place] [address] Discharge Disposition: Discharged to home or Selfcare documented as of this encounter Visit Diagnoses Not on filedocumented in this encounter Care Teams Integrated Logistics Programs Director Relationship Specialty Start Date End Date Pritesh Chu MD [address] [place] [address] PCP - General Family Medicine 04/18/24 Markus Finley MD [address] [place] [address] Consulting Physician Medical Oncology 04/18/24 Zander Cha MD [address] [address] Consulting Physician Colon and Rectal Surgery 08/24/24 documented as of this encounter
--- OUTSIDE RECORDS SUMMARY | 2024-10-26 08:02 | XMS_ITS | Encounter Summary ---
Author Organization [facility] Address [address] [place] [address] Phone Care Team Providers Care Helicopter Pilot Name Role Phone Pritesh Chu MD Primary Care Provider [phone] Markus Finley MD Unavailable [phone] Zander Cha MD Unavailable Reason for Visit * Reason Onset Date Comments Medication Refill 08/28/2024 Encounter Details Date Type Department Care Team (Late st Contact Info) Description 08/28/2024 Refill [facility] Oncology Services [address] [place] [id number] Markus Finley MD [address] [place] [address] Medication Refill Social History Tobacco Use Types Packs/Day Years Used Date Smoking Tobacco: Former Cigarettes 0.5 8.5 S tarted: 04/18/2016 Smokeless Tobacco: Never Alcohol Use Standard Drinks/Week Comments Yes 0 (1 standard drink = 0.6 oz pur e alcohol) [facility] Utilities Answer Date Recorded In the past 12 months has th e electric, gas, oil, or water company threatened to [...] declined 08/01/2024 How often do you attend bahai or judaism serv ices? Patient declined 08/01/2024 Do you belong to any clubs o r organizations such as bahai groups, unions, fraternal or athletic groups, or [...] medical care, and heating? Patient declined 08/01/2024 [facility] - [facility]ational Stress Questionnaire Answer Date [...] or rent on time? Patient declined 08/01/20 In the past 12 months, how m any times have you moved where you were living? 1 08/01/2024 At any time in the past [address] [facility], were you homeless or living in a custodial (including now)? Patient declined 08/01/2024 Comments No Sex and Gender Information Value Date Recorded Sex Assigned at Female 06/20/2024 8:39 AM CDT Legal Sex Female 9:04 AM CDT Gender Identity Female 06/20/2024 8:39 AM CDT Sexual Orientation Bisexual 06/20/2024 8: 39 AM CDT documented as of this encounter Miscellaneous Notes * Telephone Encounter - Marie Barclay RN - 08/28/2024 3:31 PM CDT Prednisone refilled per provider note dated 08/20/24 patient next follow up scheduled for 09/11/24. documented in this encounter Plan of Treatment Upcoming Encounters Date Type Department Care Team (Late st Contact Info) Description 11/15/2024 1:00 PM STAGE SETTINGS PAINTER [facility] [address] [place] [address] Markus Finley MD [address] [place] [address] 11/15/2024 2:00 PM STAGE SETTINGS PAINTER [facility] [address] [place] [address] Markus Finley MD [address] [place] [address] Discharge Disposition: Discharged to home or Selfcare documented as of this encounter Visit Diagnoses Diagnosis Metastatic melanoma (HCC) Melanoma of skin, site unspecified documented in this encounter Care Teams Helicopter Pilot Relationship Specialty Start Date End Date Pritesh Chu MD [address] [address] PCP - General Family Medicine 04/18/24 Markus Finley MD [address] [place] [address] Consulting Physician Medical Oncology 04/18/24 Zander Cha MD [address] [address] Consulting Physician Colon and Rectal Surgery 08/24/24 documented as of this encounter
--- OUTSIDE RECORDS SUMMARY | 2024-10-26 08:02 | XMS_ITS | Encounter Summary ---
Author Organization [facility] Address [address] [facility] [place] [address] Phone Care Team Providers Care Brick And Block Mason Name Role Phone Pritesh Chu MD Primary Care Provider [phone] Markus Finley MD Unavailable [phone] Zander Cha MD Unavailable Reason for Visit * Episode Based Medications (Routine) - Closed Specialty Diagnoses / Procedures Referred By Contross t Referred To Contact Diagnoses Metastatic melanoma (HCC) Markus Finley MD [address] [place] [address] Phone: tel: fax: [facility] Oncology Services [address] [place] [address] Phone: tel: fax: Referral ID Status Reason Start Date Expiration Date Visits Re quested Visits Authorized [id number] Closed 04/19/2024 1 30 Encounter Details Date Type Department Care Team (Late st Contact Info) Description 10/02/2024 2:30 PM WHEEL PRESSER Clinical Support [facility] Oncology Services [address] [place] [address] Markus Finley MD [address] [place] [address] Metastatic melanoma (HCC) (Primary Dx) Discharge Disposition: Discharged to home or Selfcare Social History Tobacco Use Types Packs/Day Years Used Date Smoking Tobacco: Former Cigarettes 0.5 5.6 S tarted: 04/18/2016 Smokeless Tobacco: Never Alcohol Use Standard Drinks/Week Comments Not Currently 0 (1 standard drink = 0.6 oz pur e alcohol) quit 2023 [facility] Utilities Answer Date Recorded In the past 12 months has [employer] electric, gas, oil, or water company threatened to shut off services in your home? No 09/25/2024 Social Connection and Isolat ion Panel [NHANES] Answer Date Recorded In a typical week, how many times do you talk on the phone with family, friends, or neighbors? More than three times a week 09/25/2024 How often do you get togethe r with friends or relatives? More than three times a week 09/25/2024 How often do you attend chur ch or episcopal services? Never 09/25/2024 Do you belong to any clubs o r organizations such as yarsanism groups, unions, fraternal or athletic groups, or school groups? No 09/25/2024 How often do you attend meet ings of the clubs or organizations you belong to? Never 09/25/2024 Are you , , di vorced, , never , or living with a partner? Never 09/25/2024 AUDIT-C Answer Date Recorded Q1: How often do you have a drink containing alc ohol? Monthly or less 09/25/2024 Q2: How many drinks containi ng alcohol do you have on a typical day when you are drinking? 1 or 2 09/25/2024 Q3: How often do you have si x or more drinks on one occasion? Never 09/25/2024 Overall Financial Resource Strain (CARDIA) Answe r Date Recorded How hard is it for you to pa y for the very basics like food, housing, medical care, and heating? Somewhat hard 09/25/2024 [facility] [place] [facility] Answer Date Recorded Do you feel stress - tense, restless, nervous, or anxious, or unable to sleep at night because your mind is troubled all the time - these days? Very much 09/25/2024 Exercise Vital Sign Answer Date Recorde d On average, how many days pe r week do you engage in moderate to strenuous exercise (like a brisk walk)? 0 days 09/25/2024 On average, how many minutes do you engage in exercise at this level? 0 min 09/25/2024 Hunger Vital Sign Answer Date Recorded Within the past 12 months, y ou worried that your food would run out before you got the money to buy more. Sometimes true Within the past 12 months, t he food you bought just didn't last and you didn't have money to get more. Sometimes true [facility] - Transportation Answer Date Re corded In the past 12 months, has l ack of transportation kept you from medical appointments or from getting medications? No 09/07 In the past 12 months, has l ack of transportation kept you from meetings, work, or from getting things needed for daily living? No 09/25/2024 Housing Stability Vital Sign Answer Shahid e Recorded In the last 12 months, was t here a time when you were not able to pay the mortgage or rent on time? No 09/25/2024 In the past 12 months, how m any times have you moved where you were living? 0 09/25/2024 At any time in the past 12 m [facility], were you homeless or living in a assisted (including now)? No 09/25/2024 Sexually Active Control Partners Comments Yes Male Comments No Sex and Gender Information Value Date Recorded Sex Assigned at Female 06/20/2024 8:39 AM CDT Legal Sex Female 9:04 AM CDT Gender Identity Female 06/20/2024 8:39 AM CDT Sexual Orientation Bisexual 06/20/2024 8: 39 AM CDT documented as of this encounter Last Filed Vital Signs Vital Sign Reading Time Taken Comments Blood Pressure 137/91 10/02/2024 2:44 PM WHEEL PRESSER Pulse 76 10/02/2024 2:44 PM WHEEL PRESSER Temperature 36.6 ??C (97.8 ??F) 10/02/2024 2:44 PM CS T Respiratory Rate 16 10/02/2024 2:44 PM WHEEL PRESSER Oxygen Saturation 98% 10/02/2024 2:44 PM WHEEL PRESSER Inhaled Oxygen Concentration - - Weight 119.7 kg (263 lb 12.8 oz) 10/02/2024 2:44 PM WHEEL PRESSER Height - - Body Mass Index 42.58 09/11/2024 2:01 PM WHEEL PRESSER documented in this encounter Miscellaneous Notes * Interdisciplinary - Melba Pitts RN - 10/02/2024 2:30 PM CST Patient to treatment bay. VS obtained. Pt port accessed per company policy, flushed without difficulty. Labs drawn per MD orders. Site secured with dressing. Pt voiced headaches every morning at timeof waking up and then headaches come and go throughout the day. This has been occurring over the last week. Pt is taking Excedrin 1-2 times a day. Pt is down to 20 mg Predisone daily. Fluid hydrationinfusing. Dr. Finley made aware of patient symptoms. Pt to exam room to see Dr. Finley. Pt returned. At completion of infusion, site flushed with NS and heparin and port de-accessed. Site secured with bandaid. Pt left in safe disposition. L PRESSER documented in this encounter Plan of Treatment Upcoming Encounters Date Type Department Care Team (Late st Contact Info) Description 11/15/2024 1:00 PM WHEEL PRESSER [facility] [address] [place] [address] Marksu Finley MD [address] [place] [address] 11/15/2024 2:00 PM WHEEL PRESSER [facility]ment [facility] [address] [place] [address] Markus Finley MD [address] [place] [address] Discharge Disposition: Discharged to home or Selfcare documented as of this encounter Procedures Procedure Name Priority Date/Time Associated Diagnosis Comments CBC WITH AUTO DIFFERENTIAL STAT 10/02/2024 3:08 PM WHEEL PRESSER Metastatic melanoma (HCC) THYROID STIMULATING HORMONE (TSH) STAT 10/02/2024 3:08 PM WHEEL PRESSER Metastatic melanoma (HCC) CMP (COMPREHENSIVE METABOLIC PANEL) STAT 10/02/2024 3:08 PM WHEEL PRESSER Metastatic melanoma (HCC) COMPLETE BLOOD COUNT (CBC) WITH DIFF STAT 10/02/2024 3:08 PM WHEEL PRESSER Metastatic melanoma (HCC) documented in this encounter Results * (ABNORMAL) CBC WITH AUTO DIFFERENTIAL (10/02/2024 3:08 PM WHEEL PRESSER) WBC 6.72 4.00 - 12.00 10(3)/mcL 10/02/2024 3:24 PM WHEEL PRESSER [facility] RBC 3.73(L) 3.80 - 5.30 10(6)/mcL 10/02/2024 3:24 PM WHEEL PRESSER [facility] HEMOGLOBIN (HGB) 11.9(L) 12.0 - 15.8 g/dL 10/02/2024 3:24 PM WHEEL PRESSER [facility] HEMATOCRIT (HCT) 36.2 36.0 - 47.0 % 10/02/2024 3:24 PM WHEEL PRESSER [facility] MCV 97.1(H) 82.0 - 96.0 fL 10/02/2024 3:24 PM WHEEL PRESSER [facility] MCH 31.9 26.0 - 34.0 pg 10/02/2024 3:24 PM WHEEL PRESSER [facility] MCHC 32.9 31.0 - 36.0 g/dL 10/02/2024 3:24 PM WHEEL PRESSER [facility] PLATELET COUNT 204 140 - 440 10(3)/mcL 10/02/2024 3:24 PM WHEEL PRESSER [facility] RDW 14.3 11.8 - 15.5 % 10/02/2024 3:24 PM WHEEL PRESSER [facility] MPV 10.6 9.7 - 12.4 fL 10/02/2024 3:24 PM WHEEL PRESSER [facility] NEUTROPHILS 83.7(H) 47.0 - 73.0 % 10/02/2024 3:24 PM WHEEL PRESSER [facility] LYMPHOCYTES 10.7(L) 18.0 - 42.0 % 10/02/2024 3:24 PM WHEEL PRESSER [facility] MONOCYTES 5.4 4.0 - 12.0 % 10/02/2024 3:24 PM [facility] EOSINOPHILS 0.1 0.0 - 5.0 % 10/02/2024 3:24 PM [facility] BASOPHILS 0.1 0.0 - 1.0 % 10/02/2024 3:24 PM [facility] ABSOLUTE NEUTROPHILS 5.62 1.60 - 7.70 10(3)/[facility] 10/02/2024 3:24 PM [facility] ABSOLUTE LYMPHOCYTES 0.72(L) 1.30 - 3.20 10(3)/[facility] 10/02/2024 3:24 PM [facility] ABSOLUTE MONOCYTES 0.36 0.20 - 1.00 10(3)/[facility] 10/02/2024 3:24 PM [facility] ABSOLUTE EOSINOPHIL 0.01 0.00 - 0.40 10(3)/[facility] 10/02/2024 3:24 PM [facility] ABSOLUTE BASOPHILS 0.01 0.00 - 0.10 10(3)/[facility] 10/02/2024 3:24 PM [facility] NRBC PER 100 WBC 0 10/02/20 3:24 PM [facility] Blood Sub-Q Port Venou s Access Device (Medi-Port, Implanted Port) / Unknown 10/02/2024 3:08 PM WHEEL PRESSER 10/02/2024 3:08 PM [facility] Markus Finley MD HEMATOLOGY ORDERABLES Fi nal Result [facility] [address] [place] [address] * THYROID STIMULATING HORMONE (TSH) (10/02/2024 3:08 PM WHEEL PRESSER) TSH 1.466 0.300 - 5.000 mIU/L 10/02/2024 3:59 PM WHEEL PRESSER [facility] Blood Sub-Q Port Venou s Access Device (Medi-Port, Implanted Port) / Unknown 10/02/2024 3:08 PM WHEEL PRESSER 10/02/2024 3:08 PM WHEEL PRESSER Markus Finley MD CHEMISTRY ORDERABLES Fin al Result Performing Organization Address [facility]/ZIP Co de Phone Number [facility] [address] [place] [address] * (ABNORMAL) CMP (COMPREHENSIVE METABOLIC PANEL) (10/02/2024 3:08 PM WHEEL PRESSER) SODIUM 136 136 - 145 mmol/L 10/02/2024 3:40 PM WHEEL PRESSER [facility] POTASSIUM 4.5 3.5 - 5.1 mmol/L 10/02/2024 3:40 PM WHEEL PRESSER [facility] CHLORIDE 109(H) 98 - 107 mmol/L 10/02/2024 3:40 PM WHEEL PRESSER [facility] CO2, VENOUS 21(L) 22 - 30 mmol/L 10/02/2024 3:40 PM WHEEL PRESSER [facility] ANION GAP 10.5 <18.0 mmol/L 10/02/2024 3:40 PM WHEEL PRESSER [facility] GLUCOSE 118(H) 70 - 99 mg/dL 10/02/2024 3:40 PM WHEEL PRESSER [facility] BUN 21(H) 5 - 18 mg/dL 10/02/2024 3:40 PM WHEEL PRESSER [facility] CREATININE, BLOOD 0.94 0.60 - 1.00 mg/dL 10/02/2024 3:40 PM [facility] BUN/CREATININE RATIO 22(H) 12 - 20 ratio 10/02/2024 3:40 PM [facility] TOTAL PROTEIN 6.2(L) 6.3 - 8.2 g/dL 10/02/2024 3:40 PM [facility] ALBUMIN 3.9 3.5 - 5.0 g/dL 10/02/2024 3:40 PM [facility] A/G RATIO 1.7 1.0 - 2.2 10/02/2024 3:40 PM [facility] CALCIUM 9.0 8.7 - 10.5 mg/dL 10/02/2024 3:40 PM [facility] T BILI 0.2 0.2 - 1.2 mg/dL 10/02/2024 3:40 PM [facility] SGOT (AST) 17 5 - 34 U/L 10/02/2024 3:40 PM [facility] SGPT (ALT) 52 0 - 55 U/L 10/02/2024 3:40 PM [facility] ALKALINE PHOSPHATASE 45 40 - 150 U/L 10/02/2024 3:40 PM [facility] IS THE PATIENT REQUIRED TO BE FASTING? No 10/02/2024 3:40 PM [facility] GFR, ESTIMATED >60 >=60 10/02/2024 3:40 PM [facility] Comment: Creatinine Clearance is the preferred criteria for selecting drug dose adjustments in renally impaired patients. ??The GFR is provided as additional pertinent clinical information. GFR is reported in mL/min/1.73 sq m. Calculation based on the Chronic Kidney Disease Epidemiology Collaboration (CKD- EPI) equation refit without adjustment for race. GFR, EST. >60 >=60 024 3:40 PM [facility] GFR, EST. NONAFRICAN >60 >=60 10/02/2024 3:40 PM [facility] Blood Sub-Q Port Venou s Access Device (Medi-Port, Implanted Port) / Unknown 10/02/2024 3:08 PM WHEEL PRESSER 10/02/2024 3:08 PM WHEEL PRESSER Markus Finley MD CHEMISTRY ORDERABLES Fin al Result [facility] [address] [place] [address] documented in this encounter Visit Diagnoses Diagnosis Metastatic melanoma (HCC)- Primary Melanoma of skin, site unspecified documented in this encounter Administered Medications Inactive Administered Medications - up to 3 most recent administrations Medication Order MAR Action Action Date Dose Rate Site 0.9 % sodium chloride solution at 999 mL/hr, Intravenous, ONCE, 1 dose, On Tue10/02/24 at 1530Indications:Metastatic melanoma (HCC) New Bag 10/02/2024 2:45 PM WHEEL PRESSER 1,000 mL 999 mL/hr Heparin Na (Pork) Lock Flsh PF SOLN 50 Units 50 Units, Intravenous, ONCE, 1 dose, On Tue10/02/24 at 1530Indications:Metastatic melanoma (HCC) Given 10/02/2024 2:01 PM WHEEL PRESSER 50 Units documented in this encounter Care Teams Brick And Block Mason Relationship Specialty Start Date End Date Pritesh Chu MD [address] [address] PCP - General Family Medicine 04/18/24 Markus Finley MD [address] [place] [address] Consulting Physician Medical Oncology 04/18/24 Zander Cha MD [address] [address] Consulting Physician Colon and Rectal Surgery 08/24/24 documented as of this encounter
--- OUTSIDE RECORDS SUMMARY | 2024-10-26 08:02 | XMS_ITS | Encounter Summary ---
Author Organization [facility] Address [address] [facility] [place] [address] Phone Care Team Providers Care Account Manager Trainee Name Role Phone Pritesh Chu MD Primary Care Provider [phone] Markus Finley MD Unavailable [phone] Zander Cha MD Unavailable Reason for Visit * Reason Onset Date Comments Medication Refill 09/20/2024 Encounter Details Date Type Department Care Team (Late st Contact Info) Description 09/20/2024 Refill [facility] Oncology Services [address] [place] [phone] Markus Finley MD [address] [place] [address] Medication Refill Social History Tobacco Use Types Packs/Day Years Used Date Smoking Tobacco: Former Cigarettes 0.5 5.6 S tarted: 04/18/2016 Smokeless Tobacco: Never Alcohol Use Standard Drinks/Week Comments Not Currently 0 (1 standard drink = 0.6 oz pur e alcohol) quit 2023 [facility] Utilities Answer Date Recorded In the past 12 months has th e electric, gas, oil, or water [employer] threatened to shut off services in your home? Patient declined 08/01/2024 Social Connection and Isolation Panel [NHANES] A nswer Date Recorded In a typical week, how many times do you talk on the phone with family, friends, or neighbors? Patient declined 08/01/2024 How often do you get togethe r with friends or relatives? Patient declined 08/01/2024 How often do you attend evangelical or hinduism serv ices? Patient declined 08/01/2024 Do you belong to any clubs o r organizations such as evangelical groups, unions, fraternal or athletic groups, or [...] medical care, and heating? Patient declined 08/01/2024 [facility] - Occupational Stress Questionnaire Answer Date Recorded [...] any time in the past 12 m [facility], were you homeless or living in a nursing home (including now)? Patient declined 08/01/2024 Sexually Active [...] st Contact Info) Description 11/15/2024 1:00 PM FIELD TRAINING AGENT Lab [facility] Laboratory Services [address] [facility] [place] [address] Markus Finley MD [address] [place] [address] 11/15/2024 2:00 PM FIELD TRAINING AGENT [facility]ointment [facility] 1 [facility] [place] [address] Markus Finley MD [address] [place] [address] Discharge Disposition: Discharged to home or Selfcare documented as of this encounter Visit Diagnoses Not on filedocumented in this encounter Care Teams Account Manager Trainee Relationship Specialty Start Date End Date Pritesh Chu MD [address] [address] PCP - General Family Medicine 04/18/24 Markus Finley MD [address] [place] [address] Consulting Physician Medical Oncology 04/18/24 Zander Cha MD [address] [address] Consulting Physician Colon and Rectal Surgery 08/24/24 documented as of this encounter
--- OUTSIDE RECORDS SUMMARY | 2024-10-26 08:02 | XMS_ITS | Encounter Summary ---
Author Organization [employer] Care Team Providers Care Plant Maintenance Engineer Name Role Phone Pritesh Chu MD Primary Care Provider Markus Finley MD Unavailable [phone] Zander Cha MD Unavailable Encounter Details Date Type Department Care Team (Latest Contact Info) Description 08/24/2024 Travel Social History Tobacco Use Types Packs/Day Years Used Date Smoking Tobacco: Former Cigarettes 0.5 8.5 S tarted: 04/18/2016 Smokeless Tobacco: Never Alcohol Use Standard Drinks/Week Comments Yes 0 (1 standard drink = 0.6 oz pur e alcohol) [facility] Utilities Answer Date Recorded In the past 12 months has [employer], gas, oil, or water [employer] threatened to shut off services in your home? Patient declined 08/01/2024 Social Connection and Isolation Panel [NHANES] A nswer Date Recorded In a typical week, how many times do you talk on the phone with family, friends, or neighbors? Patient declined 08/01/2024 How often do you get togethe r with friends or relatives? Patient declined 08/01/2024 How often do you attend pentecostalism or scientologist serv ices? Patient declined 08/01/2024 Do you belong to any clubs o r organizations such as pentecostalism groups, unions, fraternal or athletic groups, or [...] medical care, and heating? Patient declined 08/01/2024 [facility] - Occupational Stress Questionnaire Answer Date [...] any time in the past 12 m [facility], were you homeless or living in a long-term (including now)? Patient declined 08/01/2024 Comments No [...] st Contact Info) Description 11/15/2024 1:00 PM GLASSWARE MAKER Lab [facility] [address] [place] [address] Markus Finley MD [address] [place] [address] 11/15/2024 2:00 PM GLASSWARE MAKER [facility] [address] [place] [address] Markus Finley MD [address] [place] [address] Discharge Disposition: Discharged to home or Selfcare documented as of this encounter Visit Diagnoses Not on filedocumented in this encounter Additional Health Concerns Infection Onset Date Last Indicated Resolved Time C. difficile Rule-Out 08/24/2024 08/24/20242023 1:42 PM CDT documented as of this encounter Care Teams Plant Maintenance Engineer Relationship Specialty Start Date End Date Pritesh Chu MD [address] [place] [address] PCP - General Family Medicine 04/18/24 Markus Finley MD [address] [place] [address] Consulting Physician Medical Oncology 04/18/24 Zander Cha MD [address] [address] Consulting Physician Colon and Rectal Surgery 08/24/24 documented as of this encounter
--- OUTSIDE RECORDS SUMMARY | 2024-10-26 08:02 | XMS_ITS | Encounter Summary ---
Author Organization [facility] Address [address] [place] [address] Phone Care Team Providers Care Prospecting Driller Name Role Phone Pritesh Chu MD Primary Care Provider [phone] Markus Finley MD Unavailable [phone] Zander Cha MD Unavailable Reason for Visit * Reason Comments Procedure Skin Lesion Remove lesion from l eft calf Encounter Details Date Type Department Care Team (Late st Contact Info) Description 09/04/2024 11:15 AM CDT Procedure Visit [facility] - General Surgery - [place] #[address] [id number] Zander Cha MD #[address] [address] Metastatic melanoma (HCC) (Primary Dx); Subcutaneous nodule of left lower extremity Discharge Disposition: Discharged to home or Selfcare Social History Tobacco Use Types Packs/Day Years Used Date Smoking Tobacco: Former Cigarettes 0.5 5.6 S tarted: 04/18/2016 Smokeless Tobacco: Never Tobacco Cessation:Counseling Given: Not Answered Alcohol Use Standard Drinks/Week Comments Not Currently 0 (1 standard drink = 0.6 oz pur e alcohol) quit 2023 [facility] Utilities Answer Date Recorded In the past [...] declined 08/01/2024 How often do you attend nondenominational or alevism serv ices? Patient declined 08/01/2024 Do you belong to any clubs o r organizations such as nondenominational groups, unions, fraternal or athletic groups, or [...] medical care, and heating? Patient declined 08/01/2024 [facility] - Occupational Stress Questionnaire Answer Date Recorded [...] any time in the past 12 m [facility], were you homeless or living in a [facility] (including now)? Patient declined 08/01/2024 Sexually Active [...] Sign Reading Time Taken Comments Blood Pressure 116/80 09/04/2024 11:07 AM CDT Pulse 100 09/04/2024 11:07 AM CDT Temperature 36.2 ??C (97.2 ??F) 09/04/2024 11:07 AM C DT Respiratory Rate 16 09/04/2024 11:07 AM CDT Oxygen Saturation 97% 09/04/2024 11:07 AM CDT Inhaled Oxygen Concentration - - Weight 113.4 kg (250 lb) 09/04/2024 11:07 AM CDT Height 167.6 cm (5' 6 ) 09/04/2024 11:07 AM CDT Body Mass Index 40.35 09/04/2024 11:07 AM CDT documented in this encounter Progress Notes * Zander Cha MD - 09/04/2024 11:[address] Finley, can you or your office call Dr. Horn to order whatever NGS testing you need for her? Ronaldo Fermin documented in this encounter Procedure Notes * Zander Cha MD - 09/04/2024 11:15 AM CDTAssociated Order(s): EXC SKIN MALIG 0.6-1CM TRUNK,ARM,LEG Procedure(s): EXC SKIN MALIG 0.6-1CM TRUNK,ARM,LEG; LAYR CLOS WND TRUNK,ARM,LEG <2.5CM Pre-Procedure Diagnose(s): Metastatic melanoma (HCC) Post-Procedure Diagnose(s): Metastatic melanoma (HCC) Preop diagnosis: Metastatic melanoma of the left lower extremity, need for excision of nodule for further pathology. Postop diagnosis: Same, 1 cm. Procedure: Excision of metastatic melanoma left lower extremity 1 cm with layered wound closure less than 2 cm. Surgeon: Zander Cha MD Home Improvement Contractor: Debo Bush RN Anesthesia: 3 cc 1% lidocaine with epi Indications: Dayanara Hilton is a 24 y.o. female who I was asked to see by Oncology for excision of the leftanterior branham likely metastatic melanoma lesion. There is need for further tissue for pathology. Procedure was discussed with the patient. Risks benefits alternatives were also discussed. She understands and agrees to the procedure done. Consent was obtained. Findings: 1 cm nodule completely excised down to the subcutaneous tissue, repaired in 2 layers. Procedure: Patient was laid flat. The left branham was prepped and draped in the usual sterile manner. Lidocaine was injected. Using a 15 blade, the entire lesion was ellipsed out with a negative margin and down to the subcutaneous fat. The specimen was handed off to the nurse. The wound was closed with 3-0 Vicryl suture interrupted for the deep tissues and 4-0 Monocryl interrupted for the skin. The leg was washed and dried and surgical glue was placed on top of the incision. She tolerated procedure well. Postop instructions given. documented in this encounter Plan of Treatment Upcoming Encounters Date Type Department Care Team (Late st Contact Info) Description 11/15/2024 1:00 PM INSTALLATION ENGINEER Lab [facility] [address] [place] [address] Markus Finley MD [address] [place] [address] 11/15/2024 2:00 PM INSTALLATION ENGINEER Appointment [facility] [address] [place] [address] Markus Finley MD [address] [place] [address] Discharge Disposition: Discharged to home or Selfcare Scheduled Orders Name Type Priority Associated Diagnoses Orde r Schedule LAYR CLOS WND TRUNK,ARM,LEG <2.5CM Procedures Routine Metastatic melanoma (HCC) Ordered: 09/04/2024 documented as of this encounter Procedures Procedure Name Priority Date/Time Associated Diagnosis Comments PATHOLOGY SURGICAL Routine 09/04/2024 1: 02 PM CDT Metastatic melanoma (HCC) Subcutaneous nodule of left lower extremity EXC SKIN MALIG 0.6-1CM TRUNK,ARM,LEG Routine 09/04/2024 11:15 AM CDT Metastatic melanoma (HCC) documented in this encounter Results * PATHOLOGY SURGICAL (09/04/2024 1:02 PM CDT) Case Report Surgical Pathology Report ? Case: ? Authorizing Provider: ??Zander Cha MD ? Collected: ? 09/04/2024 01:02 PM ? Ordering Location: ? [facility] - ?Received: ?09/04/2024 01:03 PM ? General Surgery - [place] ? Pathologist: ? Romelia Horn MD PhD ? Specimen: ?Leg, Excision of skin lesion from left lower leg ? 09/06/2024 8:[address] [facility] FINAL DIAGNOSIS Skin, left lower leg, lesion, excision: - Consistent with metastatic melanoma, 4 mm - Sufficient tumor cells present for molecular studies if clinically indicated 09/06/2024 8:29 AM [facility] Comment A round nodular tumor is present in the dermis. The tumor cells are large epithelioid with large pleomorphic nuclei and prominent nucleoli. There are scant pigments suggesting melanin. 09/06/2024 8:[address] [facility] Pre-Operative Diagnosis Excision of skin lesion from left lower leg 09/06/2024 8:29 AM [facility] Gross Description A. Excision of skin lesion from left lower leg The specimen presents in a single formalin container for gross and microscopic examination, labeled with the patient's name, Dayanarara Tran Hilton, and designated as left lower leg skin lesion. The specimen consists of a 1 cm x 0.5 cm unoriented skin ellipse excised to a depth of 0.3 cm. Centrally located on the surface of the skin ellipse is a dark brown-black slightly raised smooth nodule measuring 0.4 cm x 0.4 cm. The excisional margin will be inked, the specimen is sectioned at narrow intervals, and all submitted in cassette A1. Total time of fixation is 8 hours, 44 minutes. KS/sb 09/06/2024 8:29 AM CDT [facility] Microscopic Description Microscopic examination was performed which supports the final diagnosis. All control tissues stained appropriately. 09/06/2024 8:29 AM CDT [facility] Other LOWER LIMB STRUCTURE / Unknown Non-Phlebotomy Collection / Unknown 09/04/2024 1:02 PM CDT 09/04/2024 1:03 PM CDT us Zander Cha MD PATHOLOGY/CYTOLOGY ORDERABLES Fi nal Result [facility] #[address] [place] [address] * EXC SKIN MALIG 0.6-1CM TRUNK,ARM,LEG (09/04/2024 11:15 AM CDT) Narrative Zander Cha MD - 09/04/2024 11:15 AM CDT Zander Cha MD ? 09/04/2024 ??1:01 PM Preop diagnosis: Metastatic melanoma of the left lower extremity, need for excision of nodule for further pathology. ?? Postop diagnosis: ??Same, 1 cm. Procedure: ??Excision of metastatic melanoma left lower extremity 1 cm with layered wound closure less than 2 cm. ?? Surgeon: Zander Cha MD Home Improvement Contractor: Debo Bush RN Anesthesia: ??3 cc 1% lidocaine with epi Indications: Dayanara Hilton is a 24 y.o. female who I was asked to see by Oncology for excision of the left anterior branham likely metastatic melanoma lesion. ??There is need for further tissue for pathology. Procedure was discussed with the patient. ??Risks benefits alternatives were also discussed. ??She understands and agrees to the procedure done. ??Consent was obtained. ?? Findings: 1 cm nodule completely excised down to the subcutaneous tissue, repaired in 2 layers. ?? Procedure: Patient was laid flat. ??The left branham was prepped and draped in the usual sterile manner. ??Lidocaine was injected. ??Using a 15 blade, the entire lesion was ellipsed out with a negative margin and down to the subcutaneous fat. ??The specimen was handed off to the nurse. ??The wound was closed with 3-0 Vicryl suture interrupted for the deep tissues and 4-0 Monocryl interrupted for the skin. ??The leg was washed and dried and surgical glue was placed on top of the incision. ??She tolerated procedure well. ?? Postop instructions given. Zander Cha MD PROCEDURE/MINOR SURGICAL ORDERAB LES Final Result documented in this encounter Visit Diagnoses Diagnosis Metastatic melanoma (HCC)- Primary Melanoma of skin, site unspecified Subcutaneous nodule of left lower extremity documented in this encounter Administered Medications Inactive Administered Medications - up to 3 most recent administrations Medication Order MAR Action Action Date Dose Rate Site lidocaine-EPINEPHrine 1 %-1:233000 injection 3 mL 3 mL, Injection, ONCE, 1 dose, On Tue09/04/24 at 1230Indications:Metastatic melanoma (HCC) Given 09/04/2024 11:51 AM CDT 3 mL documented in this encounter Care Teams Prospecting Driller Relationship Specialty Start Date End Date Pritesh Chu MD [address] [place] [address] PCP - General Family Medicine 04/18/24 Markus Finley MD [address] [place] [address] Consulting Physician Medical Oncology 04/18/24 Zander Cha MD #[address] [address] Consulting Physician Colon and Rectal Surgery 08/24/24 documented as of this encounter
--- OUTSIDE RECORDS SUMMARY | 2024-10-26 08:02 | XMS_ITS | Encounter Summary ---
Author Organization [employer] Care Team Providers Care Seafood Team Member Name Role Phone Pritesh Chu MD Primary Care Provider [phone] Markus Finley MD Unavailable Zander Cha MD Unavailable Encounter Details Date Type Department Care Team (Latest Contact Info) Description 09/04/2024 Travel Social History Tobacco Use Types Packs/Day Years Used Date Smoking Tobacco: Former Cigarettes 0.5 5.6 S tarted: 04/18/2016 Smokeless Tobacco: Never Alcohol Use Standard Drinks/Week Comments Not Currently 0 (1 standard drink = 0.6 oz pur e alcohol) quit 2023 [facility] Utilities Answer Date Recorded In the past 12 months has [employer], gas, oil, or water [email or web address] threatened to shut off services in your home? Patient declined 08/01/2024 Social Connection and Isolation Panel [NHANES] A nswer Date Recorded In a typical week, how many times do you talk on the phone with family, friends, or neighbors? Patient declined 08/01/2024 How often do you get togethe r with friends or relatives? Patient declined 08/01/2024 How often do you attend judaism or yarsanism serv ices? Patient declined 08/01/2024 Do you belong to any clubs o r organizations such as judaism groups, unions, fraternal or athletic groups, or [...] Patient declined 08/01/2024 [facility]ational [facility] Questionnaire Answer [...] any time in the past 12 m [facility], were you homeless or living in a care home (including now)? Patient declined 08/01/2024 Sexually [...] st Contact Info) Description 11/15/2024 1:00 PM GYROSCOPE REPAIRER Lab [facility] [address] [place] [address] Markus Finley MD [address] [place] [address] 11/15/2024 2:00 PM GYROSCOPE REPAIRER [facility]ointment [facility] [address] [place] [address] Markus Finley MD [address] [place] [address] Discharge Disposition: Discharged to home or Selfcare documented as of this encounter Visit Diagnoses Not on filedocumented in this encounter Care Teams Seafood Team Member Relationship Specialty Start Date End Date Pritesh Chu MD [address] [place], [place] [id number] PCP - General Family Medicine 04/18/24 Markus Finley MD [address] [place] [address] Consulting Physician Medical Oncology 04/18/24 Zander Cha MD [address] [place] [address] Consulting Physician Colon and Rectal Surgery 08/24/24 documented as of this encounter
--- OUTSIDE RECORDS SUMMARY | 2024-10-26 08:02 | XMS_ITS | Encounter Summary ---
Author Organization [facility] Address [address] [place] [address] Phone Care Team Providers Care Rn Residential Name Role Phone Pritesh Chu MD Primary Care Provider [phone] Markus Finley MD Unavailable [phone] Zander Cha MD Unavailable Reason for Referral * Consult, Test & Initiate Treatment (Routine) - Closed Specialty Diagnoses / Procedures Referred By Contross t Referred To Contact Diagnoses Nasal discomfort Markus Finley MD [address] [place] [address] Phone: tel: fax: [facility] [address] [facility] [address] [address] [address] Phone: tel: fax: Referral ID Status Reason Start Date Expiration Date Visits Re quested Visits Authorized [id number] Closed 09/25/2024 1 1 Scheduling Instructions Dayanara is being referred to Dr. Jones or other specialist in patient's insurance network for nasal irritation and something mobile/clogging septal area. See below for Dayanara's current medications, allergies and problem list. CURRENT MEDS: Current Outpatient Medications: binimetinib (Mektovi) 15 MG Tablet, Take 3 Tablets by mouth in the morning and at bedtime Indications: Melanoma, Disp: 180 Tablet, Rfl: 5 citalopram (CeleXA) 10 MG Tablet, Take 1 Tablet by mouth daily., Disp: 90 Tablet, Rfl: 0 colestipol (COLESTID) 1 GM Tablet, Take 1 Tablet by mouth 2 times daily. (Patient not taking: Reported on 09/04/2024), Disp: 60 Tablet, Rfl: 2 diphenoxylate-atropine (LOMOTIL) 2.5-0.025 MG Tablet, Take 1 Tablet by mouth 4 times daily as needed for Diarrhea., Disp: 60 Tablet, Rfl: 2 encorafenib (BRAFTOVI) 75 MG Capsule, Take 6 Capsules by mouth daily Indications: Melanoma, Disp: 180 Capsule, Rfl: 5 HYDROcodone-acetaminophen (NORCO) 5-325 MG Tablet, Take 1 Tablet by mouth every 4 hours as needed for Moderate or more severe pain. (Patient not taking: Reported on 08/29/2024), Disp: 20 Tablet, Rfl: 0 Junel Fe 24 1-20 MG-MCG(24) Tablet, Take 1 Tablet by mouth daily., Disp: , Rfl: levothyroxine (SYNTHROID) 100 MCG Tablet, Take 1 Tablet by mouth every morning (before breakfast) for 90 days., Disp: 90 Tablet, Rfl: 0 Multiple Vitamin (MULTI-VITAMIN PO), Take by mouth., Disp: , Rfl: omeprazole (PriLOSEC) 40 MG CAPSULE DELAYED RELEASE, Take 1 Capsule by mouth daily., Disp: 90 Capsule, Rfl: 1 ondansetron (ZOFRAN-ODT) 4 MG TABLET DISPERSIBLE, Take 1 Tablet by mouth every 6 hours as needed for Nausea - 1st line., Disp: 10 Tablet, Rfl: 0 polyethylene glycol (GLYCOLAX, MIRALAX) 17 g Pack, Take 1 Packet by mouth 2 times daily as needed for Constipation - 1st line. Dissolve in 4-8 oz of liquid. Indications: Constipation (Patient not taking: Reported on 08/29/2024), Disp: 90 Packet, Rfl: 0 potassium chloride (Klor-Con) 20 MEQ Pack, Take 2 Packets by mouth daily., Disp: 60 Packet, Rfl: 2 predniSONE (DELTASONE) 20 MG Tablet, Take 100mg in AM and 20mg in PM (Patient taking differently: Take 80mg in AM and 20mg in PM), Disp: 90 Tablet, Rfl: 0 prochlorperazine (COMPAZINE) 10 MG Tablet, Take 1 Tablet by mouth every 6 hours as needed for Nausea - 2nd line., Disp: 30 Tablet, Rfl: 1 senna (SENOKOT) 8.6 MG Tablet, Take 1 Tablet by mouth 2 times daily as needed for Constipation - 2nd line. (Patient not taking: Reported on 08/29/2024), Disp: 30 Tablet, Rfl: 0 sulfamethoxazole-trimethoprim DS (BACTRIM DS, SEPTRA DS) 800-160 MG Tablet, Take 1 Tablet by mouth 2 times daily for 7 days., Disp: 14 Tablet, Rfl: 0 Current Facility-Administered Medications: Heparin Na (Pork) Lock Flsh PF SOLN 50 Units, 50 Units, Intravenous, PRN, Markus Finley MD, 50 Units at 09/25/24 1509 ALLERGIES: No Known Allergies PROBLEM LIST: Patient Active Problem List: Metastatic melanoma (HCC) Ringworm Hypokalemia due to excessive gastrointestinal loss of potassium GERD (gastroesophageal reflux disease) Functional diarrhea Hypotension due to drugs Diarrhea due to drug Immunotherapy Dizziness Dehydration Morbid obesity (HCC) Non-alcoholic fatty liver disease Melanoma (HCC) Depression Pericardial effusion Hypothyroidism Acute renal failure, unspecified acute renal failure type (HCC) Metabolic acidosis, increased anion gap Subcutaneous nodule of left lower extremity DONTIC ASSISTANT Reason for Visit * Episode Based Medications (Routine) - Closed Specialty Diagnoses / Procedures Referred By Contac t Referred To Contact Diagnoses Metastatic melanoma (HCC) Markus Finley MD [address] [place] [address] Phone: tel: fax: [facility] [address] [place] [address] Phone: tel: fax: Referral ID Status Reason Start Date Expiration Date Visits Re quested Visits Authorized [id number] Closed 04/19/2024 1 30 Encounter Details Date Type Department Care Team (Late st Contact Info) Description 09/25/2024 1:30 PM ENDODONTIC ASSISTANT Clinical Support [facility] [address] [place] [address] Markus Finley MD [address] [place] [address] Dehydration (Primary Dx); Metastatic melanoma (HCC); Nasal discomfort Discharge Disposition: Discharged to home or Selfcare Social History Tobacco Use Types Packs/Day Years Used Date Smoking Tobacco: Former Cigarettes 0.5 5.6 S tarted: 04/18/2016 Smokeless Tobacco: Never Alcohol Use Standard Drinks/Week Comments Not Currently 0 (1 standard drink = 0.6 oz pur e alcohol) quit 2023 [facility] Utilities Answer Date Recorded In the past 12 months has [employer], gas, oil, or water [employer] threatened to shut off services in your [...] often do you attend chur ch or holiness services? Never 09/25/2024 Do you belong to [...] medical care, and heating? Somewhat hard 09/25/2024 [facility] Occupat ional Health - Occupational Stress [...] any time in the past 12 m [facility], were you homeless or living in a half-way (including now)? No 09/25/2024 Sexually Active Control [...] Sign Reading Time Taken Comments Blood Pressure 127/87 09/25/2024 2:15 PM ENDODONTIC ASSISTANT Pulse 78 09/25/2024 2:15 PM ENDODONTIC ASSISTANT Temperature 36.4 ??C (97.5 ??F) 09/25/2024 2:15 PM CS T Respiratory Rate 16 09/25/2024 2:15 PM ENDODONTIC ASSISTANT Oxygen Saturation 98% 09/25/2024 2:15 PM ENDODONTIC ASSISTANT Inhaled Oxygen Concentration - - Weight - - Height - - Body Mass Index - - documented in this encounter Functional Status * Audit-C Score Answer Date of Assessment Author 1 09/25/2024 11:46 AM Blaine Rosenthal Within the last year, have you been humiliated or emotionally abused in other ways by your partner or ex-partner? Answer Date of Assessment Author No 09/25/2024 11:46 AM Blaine Rosenthal * Within the last year, have you been afraid of your partner or ex-partner? Answer Date of Assessment Author No 09/25/2024 11:46 AM Blaine Rosenthal * Within the last year, have you been raped or forced to have any kind of sexual activity by your partner or ex-partner? Answer Date of Assessment Author No 09/25/2024 11:46 AM Blaine Rosenthal * Within the last year, have you been kicked, hit, slapped, or otherwise physically hurt by your partner or ex-partner? Answer Date of Assessment Author No 09/25/2024 11:46 AM Blaine Rosenthal Question Answer Date of Assessment Author Q1: How often do you have a drink containing alcohol? Monthly or less 09/25/2024 11:46 AM Afshin Rosenthal Q2: How many drinks containing alcohol do you have on a typical day when you are drinking? 1 or 2 09/25/2024 11:46 AM Hayde Rosenthal Q3: How often do you have si x or more drinks on one occasion? Never 09/25/2024 11:46 AM Hayde Rosenthal documented as of this encounter Miscellaneous Notes * Interdisciplinary - Milana, Sister Mary Almaguer RN - 09/25/2024 1:30 PM ENDODONTIC ASSISTANT Patient arrived port accessed per protocol x1 attempt. Flushed easily with good blood return. Flushed several times before labs were able to be obtained. 1L IVF given as ordered. VS obtained. Patientvoiced several concerns: continued facial and neck edema with mild dysphagia; site of skin biopsy on left branham edematous, red and purulent drainage noted; decreased mood with tearfulness and loss of i nterest in daily activities; nasal irritation or patient suspects may be a perforation in nasal septum. When irrigating with NS, nothing comes out but also can feel something mobile/clogging that area. MD informed and orders placed. Port flushed with heparin and needle removed. Site covered with bandaid. Patient left treatment area in stable condition. DONTIC ASSISTANT * Addendum Note - Sister Mary Cortés RN - 09/25/2024 1:30 PM CSTAddended by: SISTER Mary CORTÉS on: 09/25/2024 04:14 PM Modules accepted: Orders DONTIC ASSISTANT documented in this encounter Plan of Treatment Upcoming Encounters Date Type Department Care Team (Late st Contact Info) Description 11/15/2024 1:00 PM ENDODONTIC ASSISTANT Lab [facility] Services [address] [place] [address] Markus Finley MD [address] [place] [address] 11/15/2024 2:00 PM ENDODONTIC ASSISTANT Appointment [facility] MRI [address] [place] [address] Markus Finley MD [address] [place] [address] Discharge Disposition: Discharged to home or Selfcare Scheduled Referrals Name Type Priority Associated Diagnoses Orde r Schedule EXTERNAL ENT REFERRAL Outpatient Referral Routine Nasal discomfort Expected: 09/25/2024, Expires: 09/25/2025 documented as of this encounter Procedures Procedure Name Priority Date/Time Associated Diagnosis Comments CBC WITH AUTO DIFFERENTIAL STAT 09/25/2024 2:03 PM ENDODONTIC ASSISTANT Metastatic melanoma (HCC) THYROID STIMULATING HORMONE (TSH) STAT 09/25/2024 2:03 PM ENDODONTIC ASSISTANT Metastatic melanoma (HCC) CMP (COMPREHENSIVE METABOLIC PANEL) STAT 09/25/2024 2:03 PM ENDODONTIC ASSISTANT Metastatic melanoma (HCC) COMPLETE BLOOD COUNT (CBC) WITH DIFF STAT 09/25/2024 2:03 PM ENDODONTIC ASSISTANT Metastatic melanoma (HCC) documented in this encounter Results * (ABNORMAL) CBC WITH AUTO DIFFERENTIAL (09/25/2024 2:03 PM ENDODONTIC ASSISTANT) WBC 8.23 4.00 - 12.00 10(3)/mcL 09/25/2024 2:12 PM ENDODONTIC ASSISTANT [facility] RBC 3.98 3.80 - 5.30 10(6)/mcL 09/25/2024 2:12 PM ENDODONTIC ASSISTANT [facility] HEMOGLOBIN (HGB) 12.8 12.0 - 15.8 g/dL 09/25/2024 2:12 PM ENDODONTIC ASSISTANT [facility] HEMATOCRIT (HCT) 38.6 36.0 - 47.0 % 09/25/2024 2:12 PM ENDODONTIC ASSISTANT [facility] MCV 97.0(H) 82.0 - 96.0 fL 09/25/2024 2:12 PM ENDODONTIC ASSISTANT [facility] MCH 32.2 26.0 - 34.0 pg 09/25/2024 2:12 PM ENDODONTIC ASSISTANT [facility] MCHC 33.2 31.0 - 36.0 g/dL 09/25/2024 2:12 PM ENDODONTIC ASSISTANT [facility] PLATELET COUNT 183 140 - 440 10(3)/mcL 09/25/2024 2:12 PM ENDODONTIC ASSISTANT [facility] RDW 14.8 11.8 - 15.5 % 09/25/2024 2:12 PM ENDODONTIC ASSISTANT [facility] MPV 10.1 9.7 - 12.4 fL 09/25/2024 2:12 PM ENDODONTIC ASSISTANT [facility] NEUTROPHILS 85.2(H) 47.0 - 73.0 % 09/25/2024 2:12 PM ENDODONTIC ASSISTANT [facility] LYMPHOCYTES 6.8(L) 18.0 - 42.0 % 09/25/2024 2:12 PM ENDODONTIC ASSISTANT [facility] MONOCYTES 7.8 4.0 - 12.0 % 09/25/2024 2:12 PM [facility] EOSINOPHILS 0.1 0.0 - 5.0 % 09/25/2024 2:12 PM [facility] BASOPHILS 0.1 0.0 - 1.0 % 09/25/2024 2:12 PM [facility] ABSOLUTE NEUTROPHILS 7.01 1.60 - 7.70 10(3)/[facility] 09/25/2024 2:12 PM [facility] ABSOLUTE LYMPHOCYTES 0.56(L) 1.30 - 3.20 10(3)/[facility] 09/25/2024 2:12 PM [facility] ABSOLUTE MONOCYTES 0.64 0.20 - 1.00 10(3)/[facility] 09/25/2024 2:12 PM [facility] ABSOLUTE EOSINOPHIL 0.01 0.00 - 0.40 10(3)/[facility] 09/25/2024 2:12 PM [facility] ABSOLUTE BASOPHILS 0.01 0.00 - 0.10 10(3)/[facility] 09/25/2024 2:12 PM [facility] NRBC PER 100 WBC 0 09/25/20 2:12 PM [facility] Blood Sub-Q Port Venou s Access Device (Medi-Port, Implanted Port) / Unknown 09/25/2024 2:03 PM ENDODONTIC ASSISTANT 09/25/2024 2:03 PM ENDODONTIC ASSISTANT Markus Finley MD HEMATOLOGY ORDERABLES Fi nal Result [facility] [place] [address] * THYROID STIMULATING HORMONE (TSH) (09/25/2024 2:03 PM ENDODONTIC ASSISTANT) TSH 2.382 0.300 - 5.000 mIU/L 09/25/2024 2:49 PM ENDODONTIC ASSISTANT [facility] Blood Sub-Q Port Venou s Access Device (Medi-Port, Implanted Port) / Unknown 09/25/2024 2:03 PM ENDODONTIC ASSISTANT 09/25/2024 2:03 PM ENDODONTIC ASSISTANT Markus Finley MD CHEMISTRY ORDERABLES Fin al Result Performing Organization Address City/[facility]/ZIP Co de Phone Number [facility] [place] [address] * (ABNORMAL) CMP (COMPREHENSIVE METABOLIC PANEL) (09/25/2024 2:03 PM ENDODONTIC ASSISTANT) SODIUM 141 136 - 145 mmol/L 09/25/2024 2:32 PM ENDODONTIC ASSISTANT [facility] POTASSIUM 4.2 3.5 - 5.1 mmol/L 09/25/2024 2:32 PM ENDODONTIC ASSISTANT [facility] CHLORIDE 109(H) 98 - 107 mmol/L 09/25/2024 2:32 PM ENDODONTIC ASSISTANT [facility] CO2, VENOUS 25 22 - 30 mmol/L 09/25/2024 2:32 PM ENDODONTIC ASSISTANT [facility] ANION GAP 11.2 <18.0 mmol/L 09/25/2024 2:32 PM ENDODONTIC ASSISTANT [facility] GLUCOSE 95 70 - 99 mg/dL 09/25/2024 2:32 PM ENDODONTIC ASSISTANT [facility] BUN 22(H) 5 - 18 mg/dL 09/25/2024 2:32 PM ENDODONTIC ASSISTANT [facility] CREATININE, BLOOD 0.86 0.60 - 1.00 mg/dL 09/25/2024 2:32 PM [facility] BUN/CREATININE RATIO 26(H) 12 - 20 ratio 09/25/2024 2:32 PM [facility] TOTAL PROTEIN 6.3 6.3 - 8.2 g/dL 09/25/2024 2:32 PM [facility] ALBUMIN 4.0 3.5 - 5.0 g/dL 09/25/2024 2:32 PM [facility] A/G RATIO 1.7 1.0 - 2.2 09/25/2024 2:32 PM [facility] CALCIUM 9.0 8.7 - 10.5 mg/dL 09/25/2024 2:32 PM [facility] T BILI 0.5 0.2 - 1.2 mg/dL 09/25/2024 2:32 PM [facility] SGOT (AST) 20 5 - 34 U/L 09/25/2024 2:32 PM [facility] SGPT (ALT) 45 0 - 55 U/L 09/25/2024 2:32 PM [facility] ALKALINE PHOSPHATASE 39(L) 40 - 150 U/L 09/25/2024 2:32 PM [facility] IS THE PATIENT REQUIRED TO BE FASTING? No 09/25/2024 2:32 PM [facility] GFR, ESTIMATED >60 >=60 09/25/2024 2:32 PM [facility] Comment: Creatinine Clearance is the preferred criteria for selecting drug dose adjustments in renally impaired patients. ??The GFR is provided as additional pertinent clinical information. GFR is reported in mL/min/1.73 sq m. Calculation based on the Chronic Kidney Disease Epidemiology Collaboration (CKD- EPI) equation refit without adjustment for race. GFR, EST. >60 >=60 024 2:32 PM [facility] GFR, EST. NONAFRICAN >60 >=60 09/25/2024 2:32 PM [facility] Blood Sub-Q Port Venou s Access Device (Medi-Port, Implanted Port) / Unknown 09/25/2024 2:03 PM ENDODONTIC ASSISTANT 09/25/2024 2:03 PM ENDODONTIC ASSISTANT Markus Finley MD CHEMISTRY ORDERABLES Fin al Result [facility] [place] [address] documented in this encounter Visit Diagnoses Diagnosis Dehydration- Primary Metastatic melanoma (HCC) Melanoma of skin, site unspecified Nasal discomfort Other diseases of nasal cavity and sinuses documented in this encounter Administered Medications Inactive Administered Medications - up to 3 most recent administrations Medication Order MAR Action Action Date Dose Rate Site 0.9 % sodium chloride solution at 999 mL/hr, Intravenous, ONCE, 1 dose, On Tue09/25/24 at 1330Indications:Dehydration New Bag 09/25/2024 1:50 PM ENDODONTIC ASSISTANT 1,000 mL 999 mL/hr Heparin Na (Pork) Lock Flsh PF SOLN 50 Units 50 Units, Intravenous, PRN, Starting on Tue09/25/24 at 1447, Until Tue09/25/24 at 1723, Line CareIndications:Dehydration Given 09/25/2024 3:09 PM ENDODONTIC ASSISTANT 50 Units documented in this encounter Care Teams Rn Residential Relationship Specialty Start Date End Date Pritesh Chu MD [address] [place] [address] PCP - General Family Medicine 04/18/24 Markus Finley MD [address] [place] [address] Consulting Physician Medical Oncology 04/18/24 Zander Cha MD [address] [address] Consulting Physician Colon and Rectal Surgery 08/24/24 documented as of this encounter
--- OUTSIDE RECORDS SUMMARY | 2024-10-26 08:02 | XMS_ITS | Encounter Summary ---
Author Organization [facility] Address [address] [facility] [place] [address] Phone Care Team Providers Care Odd Job Laborer Name Role Phone Pritesh Chu MD Primary Care Provider [phone] Markus Finley MD Unavailable [phone] Zander Cha MD Unavailable Encounter Details Date Type Department Care Team (Late st Contact Info) Description 09/11/2024 1:40 PM FIELD CANE SCALER HELPER [facility] [address] [place] [id number] Markus Finley MD [address] [place] [address] Discharge Disposition: Discharged to home or Selfcare Social History Tobacco Use Types Packs/Day Years Used Date Smoking Tobacco: Former Cigarettes 0.5 5.6 S tarted: 04/18/2016 Smokeless Tobacco: Never Tobacco Cessation:Counseling Given: Not Answered Alcohol Use Standard Drinks/Week Comments Not Currently 0 (1 standard drink = 0.6 oz pur e alcohol) quit 2023 [facility] Utilities Answer Date Recorded In the past 12 months has th e electric, gas, oil, or water [employer] threatened to shut off services in your home? Patient declined 08/01/2024 Social Connection and Isolation Panel [NHANES] A nswer Date Recorded In a typical week, how many times do you talk on the phone with family, friends, or neighbors? Patient declined 08/01/2024 How often do you get togethe r with friends or relatives? Patient declined 08/01/2024 How often do you attend gnosticist or alevism serv ices? Patient declined 08/01/2024 Do you belong to any clubs o r organizations such as gnosticist groups, unions, fraternal or athletic groups, or [...] medical care, and heating? Patient declined 08/01/2024 [facility] - Occupational Stress Questionnaire Answer Date Recorded [...] any time in the past [facility], were you homeless or living in a assisted (including now)? Patient declined 08/01/2024 Sexually Active [...] Time Taken Comments Blood Pressure 131/90 09/11/2024 2:01 PM FIELD CANE SCALER HELPER Pulse 83 09/11/2024 2:01 PM FIELD CANE SCALER HELPER Temperature 36.6 ??C (97.8 ??F) 09/11/2024 2:01 PM CS T Respiratory Rate 18 09/11/2024 2:01 PM FIELD CANE SCALER HELPER Oxygen Saturation 98% 09/11/2024 2:01 PM FIELD CANE SCALER HELPER Inhaled Oxygen Concentration - - Weight 114.2 kg (251 lb 12.8 oz) 09/11/2024 2:01 PM FIELD CANE SCALER HELPER Height 167.6 cm (5' 6 ) 09/11/2024 2:01 PM FIELD CANE SCALER HELPER Body Mass Index 40.64 09/11/2024 2:01 PM FIELD CANE SCALER HELPER documented in this encounter Progress Notes * Seble Artis - 09/11/2024 1:40 PM CST Outpatient Hem/Onc Progress Note PROGRESS NOTE Dayanara Hilton is a 24 y.o. female seen today for follow up of metastatic melanoma. Patient requests to be called Chris. Chris was on treatment with Opdivo 3 mg/kg plus Yervoy 1 mg/kg every 28 days, started on 05/01/24. Last treatment received on 07/17/24. 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 Patient was discharged home with plans to continue IV NS through infusion clinic along with Prednisone 100 mg po BID plus Levothyroxine 100 mcg po AM. Oral steroids were decreased to Prednisone 100 mg AM with 20 mg PM on 08/10/24. She decreased oral steroids to Jazdceconw36 mg AM and 20 mg PM on 09/04/24 and further reduced to 60 mg AM and 20 mg PM on 09/07/24. She is currently taking 2 packets of K+ daily for total dose of 40 MEQ, decreased on 09/10/24 when K+ on 09/07/24 labs measured 4.7. Chris reports improvement in diarrhea since last OV; currently taking Lomotil 2.5 mg BID after trying to decrease intervention caused increase in diarrhea symptom. She reports stool has been more formed. Denies needing to wake in the night for multiple diarrhea stool bowel movements. Chris reports attempting to eat salad with stomach upset occurring after. She reports feeling dehydrated today with xerostomia, dry skin, and decreased skin turgor. Chris reports difficulties swal lowing large pills, requiring K+ packets vs tablet due to inability to swallow large tab. Denies issues swallowing capsules or smaller pills. Chris denies choking or globulus sensation in the throat. Patient remains on Omeprazole 40 mg daily. Continues Levothyroxine 100 mcg daily. Chris reports wound after excision of lesion on 09/04/24 is healing well without concerns for infection. Patient recites wearing bandage on this area today to prevent scab from catching on clothing. ECOG PERFORMANCE STATUS:1 DIAGNOSIS/TREATMENT HISTORY: Metastatic melanoma She reports it started after developing mole on the dorsum of the left foot that in 2021 started toswell with blood. Patient reports evaluation by PCP with referral to dermatology for further evaluation. Dayanara was referred to Dr. De with left foot lesion excision done on June 14, 2023that showed ulcerated malignant melanoma 6.1 mm thickness with deep margins 2.2 mm from the melanoma. Patient underwent wide excision and sentinel lymph node biopsy on August 25, 2023 that showed noresidual melanoma on the wide excision and lymph node positive involving lateral superficial left groin and left groin superficial vertical with metastatic melanoma. Patient was referred to medical oncology with evaluation completed by Dr. Christopher Meeks on 09/13/[address] completed on 09/27/23. PET CT identified no evidence of active malignancy. She was recommended to start adjuvant immunotherapy however patient states she was not contacted to start the treatment. She developed a new blood filled mole near the previous excision site. This prompted her to contactDr. De for evaluation and excision. She was seen on 02/20/24 with pathology identifyingresidual/recurrent melanoma margins negative. Currently specimen showed thickness of 3.3 mm. No lymphovascular invasion. Closest margin to invasive melanoma 0.08 mm. Patient returned to Dr. Meeks after recurrent disease confirmed with PET CT completed on 04/03/24 identifying multiple subcutaneous masses in the left branham and anteromedial left thigh with increased activity, consistent with metastatic disease. -- Tempus XT sent on tumor tissue, results pending. 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 --[id number] BLOOD: positive for BRAF V600E and TSC2 Y643fs, MSI-High not detected Reviewed patients past medical, surgical, social, and family history. No outpatient medications have been marked as taking for the 09/11/24 encounter (Office Visit) with Markus Finley MD. Allergies as of 09/11/2024 (No Known Allergies) REVIEW OF SYSTEMS Review of Systems Constitutional: Positive for malaise/fatigue and weight loss. HENT: Negative. Eyes: Negative. Respiratory: Negative. Cardiovascular: Negative. Gastrointestinal: Positive for diarrhea. Genitourinary: Negative. Musculoskeletal: Negative. Skin: Negative. Neurological: Negative. Endo/Heme/Allergies: Negative. Psychiatric/Behavioral: Negative. Physical Exam Physical Exam Constitutional: Appearance: She is obese. HENT: Head: Normocephalic and atraumatic. Skin: Comments: Stable skin nodules on left LE PAIN ASSESSMENT: Chris complains of abdominal pain that waxes and wanes. DATA: Lab Results Component Value Date WBC 9.23 09/11/2024 RBC 4.07 09/11/2024 HEMOGLOBIN 12.9 09/11/2024 MCV 95.3 09/11/2024 MCH 31.7 09/11/2024 MCHC 33.2 09/11/2024 PLATELETCNT 198 09/11/2024 RDW 15.1 09/11/2024 LYMPHOCYTES 3.8 (L) 09/11/2024 RELEOS 0.0 09/11/2024 RELBAS 0.1 09/11/2024 ANC 8.59 (H) 09/11/2024 MONOCYTES 0.28 09/11/2024 EOSINOPHILS 0.00 09/11/2024 BASOPHILS 0.01 09/11/2024 Lab Results Component Value Date SODIUM 139 09/11/2024 POTASSIUM 3.8 09/11/2024 CHLORIDE 107 09/11/2024 ANIONGAP 13.8 09/11/2024 GLUCOSE 145 (H) 09/11/2024 BUN 25 (H) 09/11/2024 CREATININE 0.87 09/11/2024 TOTALPROTEIN 6.2 (L) 09/11/2024 ALBUMIN 4.0 09/11/2024 CALCIUM 8.9 09/11/2024 SGPTALT 56 (H) 09/11/2024 ALKALINEPHO 58 09/11/2024 02/21/24 PATHOLOGY REPORT [facility]: FINAL DIAGNOSIS: Skin, left foot skin lesion, excisional biopsy: --melanoma, residual/recurrent --Margins negative for melanoma 08/25/23 PATHOLOGY REPORT [facility]: FINAL DIAGNOSIS: A. Skin, left dorsal foot, excision: --Scar, post-surgical, no residual melanoma identified B. Lymph node, lateral superficial left groin, biopsy: --metastatic melanoma C. Lymph node, left groin superficial vertical, biopsy: --Metastatic melanoma 06/14/23 PATHOLOGY REPORT [facility]: FINAL DIAGNOSIS: Skin, left foot skin lesion, excisional biopsy: ulcerated malignant melanoma 6.1 mm thickness with deep margins 2.2 mm from the melanoma DIAGNOSTIC IMAGING STUDIES: 08/15/[address]: IMPRESSION: Hypermetabolic left inguinal lymph node measuring 1.4 x 0.8 cm is suspicious for metastatic disease. Subcutaneous nodules in the medial distal left thigh and anterior to the mid left tibia have slightly increased in size with slightly decreased metabolic activity. Small differences in activity may be due to technical factors (separate leg acquisition uptake time is different than the whole-body acquisition uptake time). The increase in size of the nodules is suspicious for progression. Subcutaneous nodule along the dorsum of the left foot has an SUV of 3.1 compared to 4.3 previously.An additional subcutaneous nodule anterior to the distal tibia has an SUV of 1.1 compared to 4.[address] abdomen pelvis done at [facility] on 06/27/2024 No evidence of appendicitis. No bowel obstruction or inflammation Right lower quadrant and mesenteric lymph node maybe seen with mesenteric adenitis. 04/04/[address] [facility]: IMPRESSION: 1. Multiple subcutaneous masses in the left branham and anteromedial left thigh with increased activity, consistent with metastatic disease. 09/27/[address] [facility]: IMPRESSION: Changes of melanoma resection and stent grafting of the left foot and left inguinal lymph node dissection without evidence of metastatic disease. Assessment: Metastatic melanoma with in-transit subcutaneous nodules in the left lower extremity Port a cath in place Diarrhea suspected due to immunotherapy. Recent CT showed some mesenteric adenitis likely inflammatory Dizziness likely secondary to dehydration and hypotension Hypokalemia Plan: 2. DECREASE current prednisone from 60 mg p.o.AM with 20 mg PM to 40 mg AM with 20 mg PM starting 09/12/24. 3. Continue Colestipol 1 GM BID in attempt to improve diarrhea 4. Continue Lomotil 2.5 mg every 12 hours as needed for severe diarrhea. Patient was encouraged to use OTC Imodium as needed for less severe symptoms to prevent constipation from developing. 5. Continue Levothyroxine 100 mcg daily in morning on empty stomach. 6. Continue Omeprazole 40 mg daily to prevent acid reflux while on oral steroids. 7. Continue Ondansetron-ODT 4 mg 2 tabs every 8 hours as needed for nausea. Patient can use Prochlorperazine 10 mg every 6 hours alternating for break through symptoms. 8. Schedule patient for labs weekly with IVF as needed to maintain hydration. This will allow patient to be monitored for increased diarrhea with decreasing Prednisone dosing. 9. Continue Kklor-Con 20 MEQ packet twice daily to maintain levels. Will continue to monitor duringweekly labs to adjust accordingly. Follow up in 3 weeks The patient was given an opportunity to ask questions, and all questions answered to patient's satisfaction. Patient verbalizes understanding of the plan as outlined above. The documentation for this visit was completed by Seble Artis acting as a scribe for Markus Moses MD. 09/11/2024, 2:12 PM FIELD CANE SCALER HELPER D CANE SCALER HELPER documented in this encounter Miscellaneous Notes * Interdisciplinary - Sandra Mcclelland - 09/11/2024 1:40 PM CST Patient reports no complaints. Pain score is 0. D CANE SCALER HELPER * Interdisciplinary - Sandra Mcclelland - 09/11/2024 1:40 PM CST AVS declined. Patient will follow up in 3 weeks. D CANE SCALER HELPER documented in this encounter Plan of Treatment Upcoming Encounters Date Type Department Care Team (Late st Contact Info) Description 11/15/2024 1:00 PM FIELD CANE SCALER HELPER Lab [facility] Laboratory Services [address] [place] [address] Markus Finley MD [address] [place] [address] 11/15/2024 2:00 PM FIELD CANE SCALER HELPER Appointment [facility] MRI [address] [place] [address] Markus Finley MD [address] [place] [address] Discharge Disposition: Discharged to home or Selfcare documented as of this encounter Visit Diagnoses Not on filedocumented in this encounter Care Teams Odd Job Laborer Relationship Specialty Start Date End Date Pritesh Chu MD [address] [place] [address] PCP - General Family Medicine 04/18/24 Markus Finley MD [address] [place] [address] Consulting Physician Medical Oncology 04/18/24 Zander Cha MD [address] [address] Consulting Physician Colon and Rectal Surgery 08/24/24 documented as of this encounter
--- OUTSIDE RECORDS SUMMARY | 2024-10-26 08:02 | XMS_ITS | Encounter Summary ---
Author Organization [employer] Care Team Providers Care Councilman Name Role Phone Pritesh Chu MD Primary Care Provider [phone] Markus Finley MD Unavailable [phone] Zander Cha MD Unavailable Encounter Details Date Type Department Care Team (Latest Contact Info) Description 09/18/2024 Travel Social History Tobacco Use Types Packs/Day Years Used Date Smoking Tobacco: Former Cigarettes 0.5 5.6 S tarted: 04/18/2016 Smokeless Tobacco: Never Alcohol Use Standard Drinks/Week Comments Not Currently 0 (1 standard drink = 0.6 oz pur e alcohol) quit 2023 [facility] Utilities Answer Date Recorded In the past 12 months has [employer], gas, oil, or water [employer] threatened to shut off services in your home? Patient declined 08/01/2024 Social Connection and Isolation Panel [NHANES] A nswer Date Recorded In a typical week, how many times do you talk on the phone with family, friends, or neighbors? Patient declined 08/01/2024 How often do you get togethe r with friends or relatives? Patient declined 08/01/2024 How often do you attend religion or samaritan serv ices? Patient declined 08/01/2024 Do you belong to any clubs o r organizations such as religion groups, unions, fraternal or athletic groups, or [...] medical care, and heating? Patient declined 08/01/2024 [facility] - Occupational Stress Questionnaire Answer Date [...] any time in the past 12 m [facility], were you homeless or living in a residential (including now)? Patient declined 08/01/2024 Sexually Active [...] st Contact Info) Description 11/15/2024 1:00 PM SR. STRATEGIC SOURCING MANAGER Lab [facility] [address] [place] [address] Markus Finley MD [address] [place] [address] 11/15/2024 2:00 PM SR. STRATEGIC SOURCING MANAGER [facility]ment [facility] [address] [place] [address] Markus Finley MD [address] [place] [address] Discharge Disposition: Discharged to home or Selfcare documented as of this encounter Visit Diagnoses Not on filedocumented in this encounter Care Teams Councilman Relationship Specialty Start Date End Date Pritesh Chu MD [address] [place], [place] [id number] PCP - General Family Medicine 04/18/24 Markus Finley MD [address] [place] [address] Consulting Physician Medical Oncology 04/18/24 Zander Cha MD [address] [place] [address] Consulting Physician Colon and Rectal Surgery 08/24/24 documented as of this encounter
--- OUTSIDE RECORDS SUMMARY | 2024-10-26 08:02 | XMS_ITS | Encounter Summary ---
Author Organization [facility] Address [address] [facility] [place] [address] Phone Care Team Providers Care Sales Strategy Manager Name Role Phone Kellen Chu MD Primary Care Provider [phone] Markus Finley MD Unavailable [phone] Zander Cha MD Unavailable Reason for Visit * Reason Comments Other Metastatic melanoma; subcutaneous nodule of left lower leg * Consult, Test & Initiate Treatment (Routine) - Closed Specialty Diagnoses / Procedures Referred By Contac t Referred To Contact Diagnoses Metastatic melanoma (HCC) Markus Finley MD [address] [place] [address] Phone: tel: fax: [facility] - General Surgery [facility] #2 [facility] [address] [address] Phone: tel: fax: Referral ID Status Reason Start Date Expiration Date Visits Re quested Visits Authorized [id number] Closed 08/24/2024 1 1 Encounter Details Date Type Department Care Team (Late st Contact Info) Description 08/29/2024 1:00 PM CDT Office Visit [facility] - General Surgery - [place] [address] [phone] Markus Finley MD [address] [place] [address] Zander Cha MD #2 [facility] [address] [place] [address] Metastatic melanoma (HCC); Subcutaneous nodule of left lower extremity Discharge Disposition: Discharged to home or Selfcare Social History Tobacco Use Types Packs/Day Years Used Date Smoking Tobacco: Former Cigarettes 0.5 5.6 S tarted: 04/18/2016 Smokeless Tobacco: Never Alcohol Use Standard Drinks/Week Comments Not Currently 0 (1 standard drink = 0.6 oz pur e alcohol) quit 2023 [facility] Answer Date Recorded In the past 12 months has [employer], gas, oil, or water [employer] threatened to shut off services in your home? Patient declined 08/01/2024 Social Connection and Isolation Panel [NHANES] A nswer Date Recorded In a typical week, how many times do you talk on the phone with family, friends, or neighbors? Patient declined 08/01/2024 How often do you get togethe r with friends or relatives? Patient declined 08/01/2024 How often do you attend baptist or adventism serv ices? Patient declined 08/01/2024 Do you belong to any clubs o r organizations such as baptist groups, unions, fraternal or athletic groups, or [...] medical care, and heating? Patient declined 08/01/2024 [facility] - [...] any time in the past 12 m [facility], were you homeless or living in a custodial (including now)? Patient declined 08/01/2024 Sexually Active [...] Sign Reading Time Taken Comments Blood Pressure 124/84 08/29/2024 1:12 PM CDT Pulse 89 08/29/2024 1:12 PM CDT Temperature 36.3 ??C (97.3 ??F) 08/29/2024 1:12 PM CD T Respiratory Rate 16 08/29/2024 1:12 PM CDT Oxygen Saturation 98% 08/29/2024 1:12 PM CDT Inhaled Oxygen Concentration - - Weight 113.4 kg (250 lb) 08/29/2024 1:12 PM CDT Height 167.6 cm (5' 6 ) 08/29/2024 1:12 PM CDT Body Mass Index 40.35 08/29/2024 1:12 PM CDT documented in this encounter Progress Notes * Zander Cha MD - 08/29/2024 1:00 PM CDT HISTORY AND PHYSICAL Assessment: Metastatic melanoma, need for 4 tissue samples, who has likely melanoma spots on her left lower extremity- she is not comfortable today for me to do the excision in the office PLAN: 1) will go ahead and schedule her next week for excision of 1 of the left lower extremity nodules in the office. Thank you for allowing me to participate in her care Subjective: HPI: Erwin Hilton is a 24 y.o. female who I was asked to see by Dr. Finley oncology for excision of likely melanoma from the left lower extremity. Patient is here with her fiance. She has been dealing with melanoma for some time. Unfortunately the therapy is not working. She was referred by Oncology to get an excisional biopsy of 1 of the black spots on her left lower extremity which is likely a melanoma. The melanoma initially started on the dorsum of her left foot where she has a skin graft. Unfortunately the melanoma is not getting any better. On examination, she has about a 7 mm nodule that is easily accessible for removal. She states that she is not comfortable with me removing the nodule today. She would like to have it done next week. I am okay with this. Will go ahead and arrange it for next week Patient Active Problem List Diagnosis Date Noted Acute renal failure, unspecified acute renal failure type (HCC) 08/01/2024 Metabolic acidosis, increased anion gap 08/01/2024 Hypothyroidism 07/30/2024 Pericardial effusion 07/25/2024 Dehydration 07/23/2024 Morbid obesity (HCC) Non-alcoholic fatty liver disease Melanoma (HCC) Depression Functional diarrhea 07/03/2024 Hypotension due to drugs 07/03/2024 Diarrhea due to drug 07/03/2024 Immunotherapy 07/03/2024 Dizziness 07/03/2024 Hypokalemia due to excessive gastrointestinal loss of potassium 06/27/2024 GERD (gastroesophageal reflux disease) 06/27/2024 Ringworm 05/08/2024 Metastatic melanoma (HCC) 04/18/2024 No Known Allergies Cannot display prior to admission medications because the patient has not been admitted in this contact. Current Outpatient Medications on File Prior to Visit Medication Sig Dispense Refill colestipol (COLESTID) 1 GM Tablet Take 1 Tablet by mouth 2 times daily. 60 Tablet 2 diphenoxylate-atropine (LOMOTIL) 2.5-0.025 MG Tablet Take 1 Tablet by mouth 4 times daily as neededfor Diarrhea. 60 Tablet 2 HYDROcodone-acetaminophen (NORCO) 5-325 MG Tablet Take 1 Tablet by mouth every 4 hours as needed for Moderate or more severe pain. (Patient not taking: Reported on 08/29/2024) 20 Tablet 0 Junel Fe 24 1-20 MG-MCG(24) Tablet Take 1 Tablet by mouth daily. levothyroxine (SYNTHROID) 100 MCG Tablet Take 1 Tablet by mouth every morning (before breakfast) for 90 days. 90 Tablet 0 omeprazole (PriLOSEC) 40 MG CAPSULE DELAYED RELEASE Take 1 Capsule by mouth daily. 90 Capsule 1 ondansetron (ZOFRAN-ODT) 4 MG TABLET DISPERSIBLE Take 1 Tablet by mouth every 6 hours as needed forNausea - 1st line. 10 Tablet 0 polyethylene glycol (GLYCOLAX, MIRALAX) 17 g Pack Take 1 Packet by mouth 2 times daily as needed for Constipation - 1st line. Dissolve in 4-8 oz of liquid. Indications: Constipation (Patient not taking: Reported on 08/29/2024) 90 Packet 0 potassium chloride (Klor-Con) 20 MEQ Pack Take 2 Packets by mouth 2 times daily. 60 Packet 0 predniSONE (DELTASONE) 20 MG Tablet Take 100mg in AM and 20mg in PM 90 Tablet 0 prochlorperazine (COMPAZINE) 10 MG Tablet Take 1 Tablet by mouth every 6 hours as needed for Nausea- 2nd line. 30 Tablet 1 senna (SENOKOT) 8.6 MG Tablet Take 1 Tablet by mouth 2 times daily as needed for Constipation - 2ndline. (Patient not taking: Reported on 08/29/2024) 30 Tablet 0 No current facility-administered medications on file prior to visit. Past Medical History Positives Diagnosis Date Depression Melanoma (HCC) Miscarriage 07/09/2022 Miscarriage 12/2022 Non-alcoholic fatty liver disease Obesity Past Surgical History: Procedure Laterality Date APPENDECTOMY 2006 open ONC ACCESS PORTACATH SKIN CANCER EXCISION Left left foot melanoma excision with STSG SKIN GRAFT 08/25/2023 Continental node biopsy at the same time as the skin graph Family History Problem Relation Age of Onset No Known Problems Mother Prostate Cancer Father Chronic Obstructive Pulmonary Disease Father Other-comment Father Diverticulitis Myopathy Brother MD;Fragile X Alzheimer's Disease Maternal Grandmother Dementia Maternal Grandmother Dementia Maternal Grandfather Alzheimer's Disease Maternal Grandfather No Known Problems Paternal Grandmother Cancer Paternal Grandfather No Known Problems Half-Sister Social History Socioeconomic History Marital status: Single Spouse name: Not on file Number of children: Not on file Years of education: Not on file Highest education level: Not on file Occupational History Not on file Tobacco Use Smoking status: Former Average packs/day: 0.5 packs/day for 5.6 years (2.8 ttl pk-yrs) Types: Cigarettes Start date: 04/18/2016 Smokeless tobacco: Never Vaping Use Vaping status: Never Used Substance and Sexual Activity Alcohol use: Not Currently Comment: quit 2023 Drug use: Not Currently Types: Marijuana Comment: stopped 2023 Sexual activity: Yes Partners: Male Other Topics Concern Not on file Social History Narrative Not on file Social Determinants of Health Financial Resource Needs: Patient Declined (08/01/2024) Overall Financial Resource Strain (CARDIA) Difficulty of Paying Living Expenses: Patient declined Food Insecurity Needs: Patient Declined (08/01/2024) Hunger Vital Sign Worried About Running Out of Food in the Last Year: Patient declined Ran Out of Food in the Last Year: Patient declined Transportation Needs: Patient Declined (08/01/2024) PRAPARE - Transportation Lack of Transportation (Medical): Patient declined Lack of Transportation (Non-Medical): Patient declined Physical Activity: Patient Declined (08/01/2024) Exercise Vital Sign Days of Exercise per Week: Patient declined Minutes of Exercise per Session: Patient declined Stress: Patient Declined (08/01/2024) [employer] [place] [facility] - Occupational Stress Questionnaire Feeling of Stress : Patient declined Recent Concern: Stress - Stress Concern Present (06/27/2024) [place] [place] [facility] [employer] - Occupational Stress Questionnaire Feeling of Stress : To some extent Social Integration: Patient Declined (08/01/2024) Social Connection and Isolation Panel [NHANES] Frequency of Communication with Friends and Family: Patient declined Frequency of Social Gatherings with Friends and Family: Patient declined Attends Hindu Services: Patient declined Active Member of Clubs or Organizations: Patient declined Attends Club or Organization Meetings: Patient declined Marital Status: Patient declined Recent Concern: Social Integration - Socially Isolated (06/27/2024) Social Connection and Isolation Panel [NHANES] Frequency of Communication with Friends and Family: More than three times a week Frequency of Social Gatherings with Friends and Family: More than three times a week Attends Hindu Services: Never Active Member of Clubs or Organizations: No Attends Club or Organization Meetings: Never Marital Status: Never Intimate Partner Violence: Patient Declined (08/01/2024) Humiliation, Afraid, Rape, and Kick questionnaire Fear of Current or Ex-Partner: Patient declined Emotionally Abused: Patient declined Physically Abused: Patient declined Sexually Abused: Patient declined Housing Stability: Patient Declined (08/01/2024) Housing Stability Vital Sign Unable to Pay for Housing in the Last Year: Patient declined Number of Times Moved in the Last Year: 1 Homeless in the Last Year: Patient declined No results found for this or any previous visit from the past 365 days. ADULT TRANS THORACIC ECHO 2D COMPLETE 07/26/2024 Narrative Transthoracic Echocardiography Report (TTE) Patient name PAINTER ERWIN Brand Cecile 2000 Patient ID ([facility]) [id number] Indications: Pericardial effusion. Study Date07/26/2024 Technical quality: Adequate Type of Study: TTE procedure: Adult Trans Thoracic Echo 2D Complete. Priority:RoutineHR: 106 bpmBP: 126/87 mmHg Conclusions Summary -Normal LV size and systolic function. Concentric LVH. Estimated LVEF at 55-60%. -Normal RV size and systolic function -Evidence of thickened pericardium with mild pericardial effusion mostly noted towards the RA/ RV side -No significant valvular disease noted Findings Mitral Valve The mitral valve is normal. There is no evidence of mitral stenosis. There is no significant mitral regurgitation. Mild inflow variation is noted Aortic Valve The aortic valve is trileaflet with normal leaflet excursion. There is no evidence of aortic valve stenosis. There is no significant aortic valve insufficiency. Tricuspid Valve The tricuspid valve is normal. There is no evidence of tricuspid stenosis. There is no significant tricuspid regurgitation. Pulmonic Valve Not well visualized, no evidence by Doppler interrogation for significant stenosis or regurgitation. Left Atrium The left atrium size is normal. Left Ventricle -Normal LV size and systolic function. Concentric LVH. Estimated LVEF at 55-60%. - LV apex not well visualized Right Atrium The right atrium size is normal. Right Ventricle Normal right ventricular cavity size and normal systolic function. Pericardial Effusion -Evidence of thickened pericardium with mild pericardial effusion mostly noted towards the RA/ RV side Miscellaneous -IVC not well visualized - visualized portions of the ascending aorta and aortic arch within normal limits Valves Mitral Valve Area (PHT): 5 cm^2 Peak E-Wave: 0.65 m/s Deceleration Time: 151 msec Peak A-Wave: 0.59 m/s Peak Gradient: 1.72 mmHg P1/2t: 44 msec Tissue Doppler E' Velocity: 0.06 m/s E/E':8.7 E/A Ratio: 1.11 E/Lat E': 8.7 E/Med E':9.6 Aortic Valve Area (continuity): 2.81 cm^2 Mean Velocity: 0.83 m/s Area (VTI):2.81 cm^2 Mean Gradient: 3 mmHg Peak Velocity: 1.11 m/s AV VTI: 16.9 cm Peak Gradient: 4.93 mmHg Tricuspid Valve Peak E-Wave: 0.40 m/s Peak Gradient: 0.65 mmHg Pulmonic Valve Peak Velocity: 0.60 m/s Peak Gradient: 1.48 mmHg LVOT Peak Velocity: 0.99 m/s Mean Velocity: 0.78 m/s Peak Gradient: 4 mmHg Mean Gradient: 3 mmHg LVOT Diameter: 2 cm LVOT VTI: 15.1 cm Stroke Volume: 47 ml Stroke Volume Index: 21.08 ml/m^2 Structures Left Ventricle Diastolic Dimension: 3.09 cm Systolic Dimension: 2.02 cm Septum Diastolic: 0.81 cm Septum Systolic: 1.35 cm PW Diastolic: 1.17 cm PW Systolic: 1.73 cm Diastolic Length: 23.7 cm Systolic Length: 14.4 cm EF Calculated: 55.09% CI: 2.26 l/min*m^2 CO: 5.03 l/min RWT: 0.76 LV EDV: 81.5 ml FS: 34.63 % LV EDV Index: 37 m^2 LV Length: 7.43 cm LV ESV: 36.6 ml LVOT Diameter: 2 cm LV ESV Index: 16 m^2 Right Ventricle RVOT (PLAX) diameter:2.65 cm Tissue Doppler RV S': 14 Left Atrium LA Systolic Pressure: 12.9 mmHg LA Area: 12.5 cm^2 LA Volume: 27.5 ml LA Index: 12ml/m^2 Right Atrium RA Area: 8.18 cm^2 Great Vessels Aorta Ascending Aorta: 2.6 cm Aorta Root:3 cm Ascending Aorta Index:1.17 cm/m^2 Demographics Age 24 Gender Female Race Height 65.98 in. Weight 257.5 lbs. BMI (BSA) 41.58 kg/m^2 (2.23 m^2) Foot Doctor Bayron Bruno R Room 241 [facility] Referring Physician Silvio Physician Isabel Diaz No results found for this or any previous visit from the past 365 days. Review of Systems: Review of Systems Constitutional: Negative. HENT: Negative. Eyes: Negative. Respiratory: Negative. Cardiovascular: Negative. Gastrointestinal: Positive for diarrhea and heartburn. Genitourinary: Negative. Musculoskeletal: Negative. Skin: Negative. Neurological: Positive for dizziness and headaches. Endo/Heme/Allergies: Negative. Psychiatric/Behavioral: Positive for depression. All other systems reviewed and are negative. Pertinent items are noted in HPI. All other systems were reviewed and were negative. Objective: VITALS: BP 124/84 (BP Location: Left Arm, BP Position: Sitting, BP Cuff Size: Large) Pulse 89 Temp 97.3 ??F (36.3 ??C) (Temporal) Resp 16 Ht 5' 6 (1.676 m) Wt 250 lb (113.4 kg) LMP 07/02/2024 SpO2 98% BMI 40.35 kg/m?? Physical Exam Vitals and nursing note reviewed. Constitutional: Appearance: Normal appearance. She is obese. HENT: Head: Normocephalic and atraumatic. Right Ear: External ear normal. Left Ear: External ear normal. Nose: Nose normal. Mouth/Throat: Mouth: Mucous membranes are moist. Eyes: Extraocular Movements: Extraocular movements intact. Musculoskeletal: General: Swelling and deformity present. Cervical back: Normal range of motion. Left lower leg: Edema present. Comments: Left lower extremity edema. Skin graft on the dorsum of the distal foot. Some small melanoma appearing nodules on the left lower extremity, the ones that would be easily accessible would beon her medial lower extremity Skin: General: Skin is warm and dry. Findings: Lesion present. Neurological: General: No focal deficit present. Mental Status: She is alert and oriented to person, place, and time. Psychiatric: Mood and Affect: Mood normal. Behavior: Behavior normal. Thought Content: Thought content normal. Judgment: Judgment normal. Data Review: Lab Results Component Value Date WBC 5.53 08/20/2024 HEMOGLOBIN 12.3 08/20/2024 PLATELETCNT 263 08/20/2024 MCV 89.3 08/20/2024 Lab Results Component Value Date SODIUM 138 08/24/2024 POTASSIUM 3.5 08/24/2024 CHLORIDE 106 08/24/2024 CO2VEN 22 08/24/2024 ANIONGAP 13.5 08/24/2024 GLUCOSE 98 08/24/2024 BUN 17 08/24/2024 CREATININE 0.95 08/24/2024 BCRATIO8 18 08/24/2024 TOTALPROTEIN 5.6 (L) 08/24/2024 ALBUMIN 3.5 08/24/2024 CALCIUM 8.7 08/24/2024 TBIL 0.5 08/24/2024 SGOTAST 27 08/24/2024 SGPTALT 107 (H) 08/24/2024 ALKALINEPHO 56 08/24/2024 GFRNA >60 08/24/2024 GFRA >60 08/24/2024 Lab Results Component Value Date INR 1.1 06/27/2024 PTP 14.1 06/27/2024 I personally reviewed the above labs and radiological studies (images if available and reports), and agree with the radiologist unless stated above. This note was dictated using [employer] dictation system and there may be errors in fitter type bar and segment. Despite proof reading the note, there may be mistakes and I apologize for those. By: Zander Cha MD, 08/29/2024, 2:16 PM CDT Primary Care Physician: KELLEN CHU MD documented in this encounter Plan of Treatment Upcoming Encounters Date Type Department Care Team (Late st Contact Info) Description 11/15/2024 1:00 PM ASH CONVEYOR OPERATOR [facility] [address] [facility] [place] [phone] Markus Finley MD [address] [place] [address] 11/15/2024 2:00 PM ASH CONVEYOR OPERATOR [facility] [address] [place] [address] Markus Finley MD [address] [place] [address] Discharge Disposition: Discharged to home or Selfcare documented as of this encounter Visit Diagnoses Diagnosis Metastatic melanoma (HCC) Melanoma of skin, site unspecified Subcutaneous nodule of left lower extremity documented in this encounter Care Teams Sales Strategy Manager Relationship Specialty Start Date End Date Kellen Chu MD [address] [place] [address] PCP - General Family Medicine 04/18/24 Markus Finley MD [address] [place] [address] Consulting Physician Medical Oncology 04/18/24 Zander Cha MD [address] [address] Consulting Physician Colon and Rectal Surgery 08/24/24 documented as of this encounter
--- OUTSIDE RECORDS SUMMARY | 2024-10-26 08:02 | XMS_ITS | Encounter Summary ---
Author Organization [facility] Address [address] [facility] [place] [address] Phone Care Team Providers Care Relationship Counselor Name Role Phone Pritesh Chu MD Primary Care Provider [phone] Markus Finley MD Unavailable [phone] Zander Cha MD Unavailable Reason for Referral * Radiology Services (STAT with Interpretation) - Pending Review Specialty Diagnoses / Procedures Referred By Contross t Referred To Contact Radiology Diagnoses Metastatic melanoma (HCC) New daily persistent headache Procedures MRI BRAIN W/WO CONTRAST Markus Finley MD [address] [place] [address] Phone: tel: fax: Referral ID Status Reason Start Date Expiration Date V isits Requested Visits Authorized [id number] Pending Review 10/02/2024 1 1 Encounter Details Date Type Department Care Team (Late st Contact Info) Description 10/02/2024 3:20 PM EMTS [facility] [address] [place] [address] Markus Finley MD [address] [place] [address] Metastatic melanoma (HCC) (Primary Dx); New daily persistent headache Discharge Disposition: Discharged to home or Selfcare Social History Tobacco Use Types Packs/Day Years Used Date Smoking Tobacco: Former Cigarettes 0.5 5.6 S tarted: 04/18/2016 Smokeless Tobacco: Never Tobacco Cessation:Counseling Given: Not Answered Alcohol Use Standard Drinks/Week Comments Not Currently 0 (1 standard drink = 0.6 oz pur e alcohol) quit 2023 [facility] Answer Date Recorded In the past 12 months has e electric, gas, oil, or water company [...] often do you attend chur ch or judaism services? Never 09/25/2024 Do you belong to [...] medical care, and heating? Somewhat hard 09/25/2024 [employer] [facility] [employer] - Occupational Stress [...] were you homeless or living in a group home (including now)? No 09/25/2024 Sexually Active Control [...] Time Taken Comments Blood Pressure 137/91 10/02/2024 2:56 PM EMTS Pulse 76 10/02/2024 2:56 PM EMTS Temperature 36.6 ??C (97.8 ??F) 10/02/2024 2:56 PM CS T Respiratory Rate 16 10/02/2024 2:56 PM EMTS Oxygen Saturation 98% 10/02/2024 2:56 PM EMTS Inhaled Oxygen Concentration - - Weight 119.7 kg (263 lb 12.8 oz) 10/02/2024 2:56 PM EMTS Height 167.6 cm (5' 6 ) 10/02/2024 2:56 PM EMTS Body Mass Index 42.58 10/02/2024 2:56 PM EMTS documented in this encounter Progress Notes * Seble Artis - 10/02/2024 3:20 PM CST Outpatient Hem/Onc Progress Note PROGRESS NOTE Dayanara Hilton is a 24 y.o. female seen today for follow up of metastatic melanoma. Patient requests to be called Chris. Chris was on treatment with Opdivo 3 mg/kg plus Yervoy 1 mg/kg every 28 days, started on 05/01/24. Last treatment received on 07/17/24. 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 Patient was discharged home with plans to continue IV NS through infusion clinic along with Prednisone 100 mg po BID plus Levothyroxine 100 mcg po AM. Oral steroids were decreased to Prednisone 100 mg AM with 20 mg PM on 08/10/24. She decreased oral steroids to [id number] mg AM and 20 mg PM on 09/04/24 and further reduced to 60 mg AM and 20 mg PM on 09/07/24. During OV on 09/11/24 Prednisone was decreased to 40 mg AM with 20 mg PM. She decreased dosing further on 09/18/24 with Prednisone 20 mg AM and 20 mg PM. Currently taking Prednisone 20 mg daily. Chris denies being scheduled with ENT to evaluate nasal irritation. Reports using nasal saline spray in attempt to maintain moisture to mucosa. She reports improvement in left leg wound after excision for NGS testing by Dr. Cha after starting Bactrim BID 7 day course. No longer draining. Blotching present aroundwound. Lesion on the left dorsum of foot has flattened out without skin breaking or wound present. Chris complains of daily headaches occurring over the last month. Reports taking Excedrine migraine in the morning with symptoms improved til just prior to going to bed. Continues Lomotil 2.5 mg daily to prevent diarrhea. She is currently taking 2 packets of K+ daily for total dose of 40 MEQ, decreased on 09/10/24 when K+ on 09/07/24 labs measured 4.7. 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 --[id number] BLOOD: positive for BRAF V600E and TSC2 Y643fs, MSI-High not detected Reviewed patients past medical, surgical, social, and family history. No outpatient medications have been marked as taking for the 10/02/24 encounter (Office Visit) Markus Ortega MD. Allergies as of 10/02/2024 (No Known Allergies) REVIEW OF SYSTEMS Review [...] DATA: Lab Results Component Value Date WBC 6.72 10/02/2024 RBC 3.73 (L) 10/02/2024 HEMOGLOBIN 11.9 (L) 10/02/2024 MCV 97.1 (H) 10/02/2024 MCH 31.9 10/02/2024 MCHC 32.9 10/02/2024 PLATELETCNT 204 10/02/2024 RDW 14.3 10/02/2024 LYMPHOCYTES 10.7 (L) 10/02/2024 RELEOS 0.1 10/02/2024 RELBAS 0.1 10/02/2024 ANC 5.62 10/02/2024 MONOCYTES 0.36 10/02/2024 EOSINOPHILS 0.01 10/02/2024 BASOPHILS 0.01 10/02/2024 Lab Results Component Value Date SODIUM 141 09/25/2024 POTASSIUM 4.2 09/25/2024 CHLORIDE 109 (H) 09/25/2024 ANIONGAP 11.2 09/25/2024 GLUCOSE 95 09/25/2024 BUN 22 (H) 09/25/2024 CREATININE 0.86 09/25/2024 TOTALPROTEIN 6.3 09/25/2024 ALBUMIN 4.0 09/25/2024 CALCIUM 9.0 09/25/2024 SGPTALT 45 09/25/2024 ALKALINEPHO 39 (L) 09/25/2024 02/21/24 PATHOLOGY REPORT [facility]: FINAL DIAGNOSIS: Skin, [...] 4.[address] abdomen pelvis done at [facility] on 06/27/2024 No evidence of appendicitis. No [...] to dehydration and hypotension Hypokalemia Plan: 2. Continue Prednisone 20 mg daily. Extend Bactrim BID from 7 day to 12 day course given appearanceof left leg wound today. Patient will continue to clean area and change bandage daily to prevent infection from developing. 3. Continue Colestipol 1 GM BID in attempt to improve diarrhea 4. DECREASE Lomotil 2.5 mg from every 12 hours to daily as needed for severe diarrhea. Patient was [...] hours alternating for break through symptoms. 8. Continue Kklor-Con 20 MEQ packet twice daily to maintain levels. Will continue to monitor duringweekly labs to adjust accordingly. 9. Obtain STAT MRI Brain to assess for metastatic disease to brain given patient's new headaches with melanoma diagnosis. 10. Patient provided phone number for ENT Dr. Alisia Camp for nasal irritation with possible septum perforation. IF patient unable to be evaluated by their office will attempt to send her to the ENT group at [facility]. Follow up in 3 weeks with MRI brain prior The patient was given an opportunity to ask questions, and all questions answered to patient's satisfaction. Patient verbalizes understanding of the plan as outlined above. Documentation was brought forward from my note on 09/11/24. Everything pasted or copy/forwarded was performed again at this visit and changes were made as appropriate. The documentation for this visitwas completed by Seble Artis acting as a scribe for Markus Finley MD. 10/02/2024, 3:31 PM EMTS documented in this encounter Plan of Treatment Upcoming Encounters Date Type Department Care Team (Late st Contact Info) Description 11/15/2024 1:00 PM [facility] [address] [place] [id number] Markus Finley MD [address] [place] [address] 11/15/2024 2:00 PM EMTS [facility] [address] [place] [phone] Markus Finley MD [place], [place] [id number] Discharge Disposition: Discharged to home or Selfcare Scheduled Orders Name Type Priority Associated Diagnoses Order Schedule MRI BRAIN W/WO CONTRAST Imaging Stat with Interpretation Metastatic melanoma (HCC) New daily persistent headache Expected: 10/02/2024, Expires: 04/01/2026 documented as of this encounter Visit Diagnoses Diagnosis Metastatic melanoma (HCC)- Primary Melanoma of skin, site unspecified New daily persistent headache documented in this encounter Care Teams Relationship Counselor Relationship Specialty Start Date End Date Pritesh Chu MD [address] [address] PCP - General Family Medicine 04/18/24 Markus Finley MD [address] [place] [address] Consulting Physician Medical Oncology 04/18/24 Zander Cha MD [id number] [address] Consulting Physician Colon and Rectal Surgery 08/24/24 documented as of this encounter
--- OUTSIDE RECORDS SUMMARY | 2024-10-26 08:02 | XMS_ITS | Clinical Summary ---
Author Organization [facility] Address [address] [place] [address] Phone Care Team Providers Care Certified Medical Technician Name Role Phone Pritesh Chu MD Primary Care Provider [phone] Markus Finley MD Unavailable [phone] Zander Cha MD Unavailable Allergies No known active allergies Medications 1-20 MG-MCG(24) Tablet Take 1 Tablet by mouth daily. 02/29/20 24 Active diphenoxylate- atropine (LOMOTIL) 2.5-0.025 MG TabletIndicati ons:Metastatic melanoma (HCC) Take 1 Tablet by mouth 4 times daily as needed for Diarrhea. 60 Tablet 2 07/12/20 24 Active HYDROcodone-ac etaminophen (NORCO) 5-325 MG TabletIndicati ons:Dehydratio n,ALEXX (acute kidney injury) (HCC) Take 1 Tablet by mouth every 4 hours as needed for Moderate or more severe pain. 20 Tablet 07/24/20 24 Active Additional Information Patient not taking.Reported on 08/29/2024 prochlorperazi ne (COMPAZINE) 10 MG Tablet Take 1 Tablet by mouth every 6 hours as needed for Nausea - 2nd line. 30 Tablet 1 07/25/20 Active levothyroxine (SYNTHROID) 100 MCG Tablet Take 1 Tablet by mouth every morning (before breakfast) for 90 days. 90 Tablet 07/31/20 24 2023 Active ondansetron (ZOFRAN-ODT) 4 MG TABLET DISPERSIBLE Take 1 Tablet by mouth every 6 hours as needed for Nausea - 1st line. 10 Tablet 08/03/20 Active senna (SENOKOT) 8.6 MG Tablet Take 1 Tablet by mouth 2 times daily as needed for Constipation - 2nd line. 30 Tablet 08/03/20 Active Additional Information Patient not taking.Reported on 08/29/2024 omeprazole (PriLOSEC) 40 MG CAPSULE DELAYED RELEASE Take 1 Capsule by mouth daily. 90 Capsule 1 08/14/20 Active predniSONE (DELTASONE) 20 MG TabletIndicati ons:Metastatic melanoma (HCC) Take 100mg in AM and 20mg in PM 90 Tablet 08/28/20 Active Additional Information Patient taking differently: Take 80mg in AM and 20mg in PM, Reported on 09/04/2024 Multiple Vitamin (MULTI-VITAMIN PO) Take by mouth. Activ e citalopram (CeleXA) 10 MG Tablet Take 1 Tablet by mouth daily. 90 Tablet 09/25/20 Active binimetinib (Mektovi) 15 MG TabletIndicati ons:Malignant Melanoma Take 3 Tablets by mouth in the morning and at bedtime Indications: Melanoma 180 Tablet 5 10/10/20 24 Active encorafenib (BRAFTOVI) 75 MG CapsuleIndicat ions:Malignant Melanoma Take 6 Capsules by mouth daily Indications: Melanoma 180 Capsule 5 10/10/20 24 Active potassium chloride (Klor-Con) 20 MEQ Pack DISSOLVE 2 PACKETS IN LIQUID AND DRINK BY MOUTH DAILY DIRECTED 180 Packet 1 10/25/20 Active polyethylene glycol (GLYCOLAX, MIRALAX) 17 g PackIndication s:Constipation Take 1 Packet by mouth 2 times daily as needed for Constipation - 1st line. Dissolve in 4-8 oz of liquid. Indications: Constipation 90 Packet 08/03/20 24 2023 Discontinued(T herapy completed) colestipol (COLESTID) 1 GM Tablet Take 1 Tablet by mouth 2 times daily. 60 Tablet 2 08/20/20 24 2023 Discontinued(T herapy completed) potassium chloride (Klor-Con) 20 MEQ Pack Take 2 Packets by mouth daily. 60 Packet 2 09/10/20 24 2023 Discontinued encorafenib (BRAFTOVI) 75 MG CapsuleIndicat ions:Malignant Melanoma Take 6 Capsules by mouth daily Indications: Melanoma 180 Capsule 5 09/20/20 24 2023 Discontinued(R eorder) binimetinib (Mektovi) 15 MG TabletIndicati ons:Malignant Melanoma Take 3 Tablets by mouth in the morning and at bedtime Indications: Melanoma 180 Tablet 5 09/20/20 24 2023 Discontinued(R eorder) sulfamethoxazo le-trimethopri m DS (BACTRIM DS, SEPTRA DS) 800-160 MG TabletIndicati ons:Metastatic melanoma (HCC) Take 1 Tablet by mouth 2 times daily for 7 days. 14 Tablet 09/25/20 24 2023 encorafenib (BRAFTOVI) 75 MG CapsuleIndicat ions:Malignant Melanoma Take 6 Capsules by mouth daily Indications: Melanoma 180 Capsule 5 10/09/20 24 2023 Discontinued(R eorder) binimetinib (Mektovi) 15 MG TabletIndicati ons:Malignant Melanoma Take 3 Tablets by mouth in the morning and at bedtime Indications: Melanoma 180 Tablet 5 10/09/20 24 2023 Discontinued(R eorder) Active Problems Problem Noted Date Diagnosed Date Subcutaneous nodule of left lower extremity 02/2024 Acute renal failure, unspecified acute renal samreen lure type 08/01/2024 Metabolic acidosis, increased anion gap 08/01/20 Hypothyroidism 07/30/2024 Pericardial effusion 07/25/2024 Dehydration 07/23/2024 Functional diarrhea 07/03/2024 Hypotension due to drugs 07/03/2024 Diarrhea due to drug 07/03/2024 Immunotherapy 07/03/2024 Dizziness 07/03/2024 Hypokalemia due to excessive gastrointestinal loss of potassium 06/27/2024 GERD (gastroesophageal reflux disease) Ringworm 05/08/2024 Metastatic melanoma 04/18/2024 Morbid obesity Non-alcoholic fatty liver disease Melanoma Depression Resolved Problems Problem Noted Date Diagnosed Date Resolved Date ALEXX (acute kidney injury) 07/25/2024 Dehydration 07/25/2024 07/30/2024 Fever of unknown origin 06/27/202406/08 Acute kidney injury 06/27/2024 06/30/20 Diarrhea 06/27/2024 06/30/2024 Abnormal TSH 06/12/2024 08/06/2024 Iron deficiency anemia due t o chronic blood loss 04/18/2024 08/06/2024 Miscarriage 12/08/2022 08/06/2024 Miscarriage 07/09/2022 08/06/2024 Encounters Date Type Department Care Team Description 10/24/2024 Refill [facility] [address] [place] [phone] Markus Finley MD Medication Refill 10/21/2024 Travel 10/08/2024 Telephone [facility] [address] [place] [phone] Markus Finley MD 10/05/2024 Transcribe Orders [facility] [address] [place] [address] [place] [address] Markus Finley MD Metastatic melanoma (HCC) (Primary Dx) 10/02/2024 3:20 PM SOCIAL MEDIA CONTENT SPECIALIST Office Visit [facility] [address] [place] [phone] Markus Finley MD Metastatic melanoma (HCC) (Primary Dx); New daily persistent headache Discharge Disposition: Discharged to home or Selfcare 10/02/2024 2:30 PM SOCIAL MEDIA CONTENT SPECIALIST Clinical Support [facility] [address] [place] [phone] Markus Finley MD Metastatic melanoma (HCC) (Primary Dx) Discharge Disposition: Discharged to home or Selfcare 10/02/2024 Travel 09/25/2024 1:30 PM SOCIAL MEDIA CONTENT SPECIALIST Clinical Support [facility] [address] [place] [address] Markus Finley MD Dehydration (Primary Dx); Metastatic melanoma (HCC); Nasal discomfort Discharge Disposition: Discharged to home or Selfcare 09/25/2024 Travel 09/25/2024 Patient Outreach [facility] [address] [place] [phone] Navigator, [employer] Social Concerns 09/20/2024 Refill [facility] [address] [place] [phone] Markus Finley MD Medication Refill 09/18/2024 1:30 PM SOCIAL MEDIA CONTENT SPECIALIST Clinical Support [facility] [address] [place] [phone] Markus Finley MD Metastatic melanoma (HCC) Discharge Disposition: Discharged to home or Selfcare 09/18/2024 Travel 09/11/2024 1:40 PM SOCIAL MEDIA CONTENT SPECIALIST Office Visit [facility] [address] [place] [phone] Markus Finley MD Discharge Disposition: Discharged to home or Selfcare 09/11/2024 1:30 PM SOCIAL MEDIA CONTENT SPECIALIST Clinical Support [facility] [address] [place] [phone] Markus Finley MD Metastatic melanoma (HCC) Discharge Disposition: Discharged to home or Selfcare 09/11/2024 Travel 09/10/2024 [facility]ill [facility] [address] [place] [phone] Markus Finley MD Medication Refill 09/07/2024 11:30 AM CDT Clinical Support [facility] [address] [place] [phone] Markus Finley MD Metastatic melanoma (HCC) (Primary Dx) Discharge Disposition: Discharged to home or Selfcare 09/07/2024 Travel 09/07/2024 Telephone [facility] [address] [place] [phone] Markus Finley MD 09/04/2024 11:15 AM CDT Procedure [facility] [phone] Zander Cha MD Metastatic melanoma (HCC) (Primary Dx); Subcutaneous nodule of left lower extremity Discharge Disposition: Discharged to home or Selfcare 09/04/2024 Travel 08/29/2024 1:00 PM CDT Office Visit [facility] [phone] Markus Finley MD Kumar, Raman, MD Metastatic melanoma (HCC); Subcutaneous nodule of left lower extremity Discharge Disposition: Discharged to home or Selfcare 08/29/2024 Telephone [facility] [address] [place] [address] Markus Finley MD 08/29/2024 Travel 08/28/2024 Refill [facility] [address] [place] [address] Markus Finley MD Medication Refill 08/27/2024 Telephone [facility] [address] [place] [address] Markus Filney MD 08/24/2024 11:30 AM CDT Clinical Support [facility] [address] [place] [address] Markus Finley MD Diarrhea, unspecified type (Primary Dx); Metastatic melanoma (HCC) Discharge Disposition: Discharged to home or Selfcare 08/24/2024 Travel 08/22/2024 11:30 AM CDT Clinical Support [facility] [address] [place] [phone] Anthony Eckert MD Sandhu, Manpreet Kaur, MD Diarrhea due to drug (Primary Dx); Metastatic melanoma (HCC) Discharge Disposition: Discharged to home or Selfcare 08/22/2024 Travel 08/20/2024 1:40 PM CDT Clinical Support [facility] [address] [place] [phone] Markus Finley MD Metastatic melanoma (HCC) (Primary Dx) Discharge Disposition: Discharged to home or Selfcare 08/20/2024 1:00 PM CDT Office Visit [facility] [address] [place] [phone] Markus Finley MD Non-alcoholic fatty liver disease (Primary Dx); Diarrhea due to drug; Morbid obesity (HCC); Hypokalemia due to excessive gastrointestinal loss of potassium; Hypothyroidism due to medication; Metastatic melanoma (HCC); Subcutaneous nodule of left lower extremity Discharge Disposition: Discharged to home or Selfcare 08/20/2024 Travel 08/16/2024 Telephone [facility] [address] [place] [phone] Markus Finley MD 08/15/2024 11:35 AM CDT - 08/15/2024 11:59 PM CDT Hospital Encounter [facility] PET [address] [place] [address] Markus Finley MD Discharge Disposition: Discharged to home or Selfcare 08/15/2024 11:30 AM CDT Clinical Support [facility] [address] [place] [phone] Markus Finley MD Metastatic melanoma (HCC) Discharge Disposition: Discharged to home or Selfcare 08/15/2024 Travel 08/14/2024 Telephone [facility] [address] [place] [phone] Markus Finley MD 08/13/2024 11:30 AM CDT Clinical Support [facility] [address] [place] [phone] Markus Finley MD Acute renal failure, unspecified acute renal failure type (HCC) (Primary Dx); Metastatic melanoma (HCC) Discharge Disposition: Discharged to home or Selfcare 08/13/2024 Travel 08/10/2024 11:00 AM CDT Clinical Support [facility] [address] [place] [phone] Markus Finley MD Metastatic melanoma (HCC) (Primary Dx); Acute renal failure, unspecified acute renal failure type (HCC) Discharge Disposition: Discharged to home or Selfcare 08/10/2024 Travel 08/09/2024 Patient Outreach [facility] [employer] [facility] [address] [place] [phone] Lucille Lawson RN Transition of Care (Week #1 ) 08/08/2024 11:30 AM CDT Clinical Support [facility] [address] [place] [phone] Markus Filney MD Metastatic melanoma (HCC) Discharge Disposition: Discharged to home or Selfcare 08/08/2024 Travel 08/07/2024 Patient Outreach [facility] [employer] [facility] [facility] [address] [place] [address] Lucille Lawson RN 08/06/2024 11:30 AM CDT Clinical Support [facility] [address] [place] [phone] Markus Finley MD Diarrhea due to drug (Primary Dx); Metastatic melanoma (HCC) Discharge Disposition: Discharged to home or Selfcare 08/06/2024 10:40 AM CDT Office Visit [facility] [address] [place] [phone] Markus Finley MD Metastatic melanoma (HCC) (Primary Dx); Hypothyroidism due to medication; Acute renal failure, unspecified acute renal failure type (HCC); Hypokalemia due to excessive gastrointestinal loss of potassium; Dehydration; Immunotherapy; Diarrhea due to drug Discharge Disposition: Discharged to home or Selfcare 08/06/2024 Post Discharge Follow-up [facility] Nursing Services [address] [place] [phone] Arline Rojo RN 08/06/2024 Travel 08/04/2024 Patient Outreach [facility] [employer] [address] [place] [phone] Yadira Gill RN Transition of Care 08/01/2024 2:20 PM CDT Office Visit [facility] [address] [place] [phone] Markus Finley MD Other specified hypothyroidism (Primary Dx); Diarrhea due to drug; Acute renal failure, unspecified acute renal failure type (HCC); Dehydration; Hypokalemia due to excessive gastrointestinal loss of potassium; Metastatic melanoma (HCC); Immunotherapy Discharge Disposition: Discharged to home or Selfcare 08/01/2024 12:38 PM CDT - 08/03/2024 6:15 PM CDT Hospital Encounter [facility] Med Surg [address] [place] [phone] Graciela Jonas PAC Landry, Scott Lewis, MD Krishna, Naveen Kumar, MD Acute renal failure, unspecified acute renal failure type (HCC) Discharge Disposition: Home Health Care [facility] 08/01/2024 10:30 AM CDT Clinical Support [facility] [address] [place] [address] Markus Finley MD Diarrhea due to drug (Primary Dx); Metastatic melanoma (HCC) Discharge Disposition: Discharged to home or Selfcare 08/01/2024 Post Discharge Follow-up [facility] Services [address] [place] [phone] Arline Rojo RN 08/01/2024 Travel 07/31/2024 Patient Outreach [facility] [employer] [address] [place] [phone] Maday Suarez RN Transition of Care (TCM 1st attempt) 07/25/2024 11:42 AM CDT - 07/30/2024 3:39 PM CDT Hospital Encounter [facility] Med Surg [address] [place] [phone] Gael Morales MD Dianati, Behfar, MD Patel, Satyen V, MD ALEXX (acute kidney injury) (HCC) Discharge Disposition: Discharged to home or Selfcare from Last 3 Months Immunizations Immunization Administration Dates Next Due Hepatitis B Immune Globulin 07/28/2024(Deferred: - Dr Advised) Family History Medical History Relation Name Comments Myopathy Brother ;Fragile X Chronic Obstructive Pulmonary Disease Father Other-comment Father Diverticulitis Prostate Cancer Father No Known Problems Half-Sister Alzheimer's Disease Maternal Grandfather Dementia Maternal Grandfather Alzheimer's Disease Maternal Grandmother Dementia Maternal Grandmother No Known Problems Mother Thyroid Disease Paternal Aunt Cancer Paternal Grandfather No Known Problems Paternal Grandmother Relation Name Status Comments Brother Father Alive Half-Sister Alive Maternal Grandfather Maternal Grandmother Mother Alive Paternal Aunt Alive Paternal Grandfather Paternal Grandmother Social History Tobacco Use Types Packs/Day Years Used Date Smoking Tobacco: Former Cigarettes 0.5 5.6 S tarted: 04/18/2016 Smokeless Tobacco: Never Tobacco Cessation:Counseling Given: Not Answered Alcohol Use Standard Drinks/Week Comments Not Currently 0 (1 standard drink = 0.6 oz pur e alcohol) quit [address] [facility] Utilities Answer Date Recorded In the [...] often do you attend chur ch or worship services? Never 09/25/2024 Do you belong to any clubs o r organizations such as mormonism groups, unions, fraternal or athletic groups, or [...] medical care, and heating? Somewhat hard 09/25/2024 [facility] - Occupational Stress [...] any time in the past 12 m [facility], were you homeless or living in a retirement (including now)? No 09/25/2024 Sexually Active Control Partners Comments Yes Male Comments No Sex and Gender Information Value Date Recorded Sex Assigned at Female 06/20/2024 8:39 AM CDT Legal Sex Female 9:04 AM CDT Gender Identity Female 06/20/2024 8:39 AM CDT Sexual Orientation Bisexual 06/20/2024 8: 39 AM CDT Last Filed Vital Signs Vital Sign Reading Time Taken Comments Blood Pressure 137/91 10/02/2024 2:56 PM SOCIAL MEDIA CONTENT SPECIALIST Pulse 76 10/02/2024 2:56 PM SOCIAL MEDIA CONTENT SPECIALIST Temperature 36.6 ??C (97.8 ??F) 10/02/2024 2:56 PM CS T Respiratory Rate 16 10/02/2024 2:56 PM SOCIAL MEDIA CONTENT SPECIALIST Oxygen Saturation 98% 10/02/2024 2:56 PM SOCIAL MEDIA CONTENT SPECIALIST Inhaled Oxygen Concentration - - Weight 119.7 kg (263 lb 12.8 oz) 10/02/2024 2:56 PM SOCIAL MEDIA CONTENT SPECIALIST Height 167.6 cm (5' 6 ) 10/02/2024 2:56 PM SOCIAL MEDIA CONTENT SPECIALIST Body Mass Index 42.58 10/02/2024 2:56 PM SOCIAL MEDIA CONTENT SPECIALIST Plan of Treatment Upcoming Encounters Date Type Department Care Team (Late st Contact Info) Description 11/15/2024 1:00 PM SOCIAL MEDIA CONTENT SPECIALIST Lab [facility] Laboratory Services [address] [place] [address] Markus Finley MD [address] [place] [address] 11/15/2024 2:00 PM SOCIAL MEDIA CONTENT SPECIALIST Appointment [facility] MRI [address] [place] [address] Markus Finley MD [address] [place] [address] Discharge Disposition: Discharged to home or Selfcare Health Maintenance Due Date Last Done Comments SARS-COV-2 Immunization (#1) 2005 Pneumococcal Immunization Combined (1 of 2 - PCV) 2006 05/08/2002, 01/12/2001, 2000, Additional history exists Pap Smear 2021 Influenza Immunization (#1) 2024 Respiratory Syncytial Virus (RSV) Immunization (Adult) (1 - 1-dose 75+ series) 2075 Hepatitis B Immunization Completed 001, 2000, 2000 TdaP Immunization Completed 04/19/2011 Human Papillomavirus (HPV) Immunization Completed 04/18/2015, 09/13/2014, 07/05/2014 Meningococcal Immunization (ACWY) Completed 06/22/2016, 07/05/2014 Hepatitis C Virus (HCV) Screening Completed 07/29/2024, 07/28/2024 Rotavirus Immunization Aged Out No lo nger eligible based on patient's age to complete this topic Interventions Community Resource Recommendations Community Resource Services Recommended Domains Addressed Status Status Reason/Outcome Date/Time HIS Service Station Food Insecurity Needs Food Insecurity Recommended 09/25/2024 11:54 AM SOCIAL MEDIA CONTENT SPECIALIST [employer] [facility] Food Insecurity Needs Food Insecurity Recommended 09/25/2024 11:54 AM SOCIAL MEDIA CONTENT SPECIALIST [facility] Financial Resource Needs, Food Insecurity Needs Financial Resource Strain, Food Insecurity Recommended 09/25/2024 11:54 AM SOCIAL MEDIA CONTENT SPECIALIST [facility] - Mental Health Services Mental Health Evaluation Stress Recommended 09/25/2024 11:54 AM SOCIAL MEDIA CONTENT SPECIALIST [facility] Division of Mental Health - Inpatient Services Mental Health Evaluation, Mental Health Services Stress Recommended 09/25/2024 11:54 AM SOCIAL MEDIA CONTENT SPECIALIST [facility] - [facility] Home Care Services - Psychiatric Care Medications for Mental Health, Mental Health Education, Mental Health Evaluation, Mental Health Services Stress Recommended 09/25/2024 11:54 AM SOCIAL MEDIA CONTENT SPECIALIST from Last 12 Months Procedures Procedure Name Priority Date/Time Associated Diagnosis Comments CBC WITH AUTO DIFFERENTIAL STAT 10/02/2024 3:08 PM SOCIAL MEDIA CONTENT SPECIALIST Metastatic melanoma (HCC) THYROID STIMULATING HORMONE (TSH) STAT 10/02/2024 3:08 PM SOCIAL MEDIA CONTENT SPECIALIST Metastatic melanoma (HCC) CMP (COMPREHENSIVE METABOLIC PANEL) STAT 10/02/2024 3:08 PM SOCIAL MEDIA CONTENT SPECIALIST Metastatic melanoma (HCC) COMPLETE BLOOD COUNT (CBC) WITH DIFF STAT 10/02/2024 3:08 PM SOCIAL MEDIA CONTENT SPECIALIST Metastatic melanoma (HCC) CBC WITH AUTO DIFFERENTIAL STAT 09/25/2024 2:03 PM SOCIAL MEDIA CONTENT SPECIALIST Metastatic melanoma (HCC) THYROID STIMULATING HORMONE (TSH) STAT 09/25/2024 2:03 PM SOCIAL MEDIA CONTENT SPECIALIST Metastatic melanoma (HCC) COMPLETE BLOOD COUNT (CBC) WITH DIFF STAT 09/25/2024 2:03 PM SOCIAL MEDIA CONTENT SPECIALIST Metastatic melanoma (HCC) CMP (COMPREHENSIVE METABOLIC PANEL) STAT 09/25/2024 2:03 PM SOCIAL MEDIA CONTENT SPECIALIST Metastatic melanoma (HCC) CBC WITH AUTO DIFFERENTIAL STAT 09/18/2024 2:21 PM SOCIAL MEDIA CONTENT SPECIALIST Metastatic melanoma (HCC) THYROID STIMULATING HORMONE (TSH) STAT 09/18/2024 2:21 PM SOCIAL MEDIA CONTENT SPECIALIST Metastatic melanoma (HCC) CMP (COMPREHENSIVE METABOLIC PANEL) STAT 09/18/2024 2:21 PM SOCIAL MEDIA CONTENT SPECIALIST Metastatic melanoma (HCC) COMPLETE BLOOD COUNT (CBC) WITH DIFF STAT 09/18/2024 2:21 PM SOCIAL MEDIA CONTENT SPECIALIST Metastatic melanoma (HCC) CBC WITH AUTO DIFFERENTIAL STAT 09/11/2024 1:32 PM SOCIAL MEDIA CONTENT SPECIALIST Metastatic melanoma (HCC) COMPLETE BLOOD COUNT (CBC) WITH DIFF STAT 09/11/2024 1:32 PM SOCIAL MEDIA CONTENT SPECIALIST Metastatic melanoma (HCC) CMP (COMPREHENSIVE METABOLIC PANEL) STAT 09/11/2024 1:32 PM SOCIAL MEDIA CONTENT SPECIALIST Metastatic melanoma (HCC) MAGNESIUM (MG) Routine 09/11/2024 1:32 PM SOCIAL MEDIA CONTENT SPECIALIST CBC WITH AUTO DIFFERENTIAL STAT 09/07/2024 11:55 AM CDT Metastatic melanoma (HCC) THYROID STIMULATING HORMONE (TSH) STAT 09/07/2024 11:55 AM CDT Metastatic melanoma (HCC) CMP (COMPREHENSIVE METABOLIC PANEL) STAT 09/07/2024 11:55 AM CDT Metastatic melanoma (HCC) COMPLETE BLOOD COUNT (CBC) WITH DIFF STAT 09/07/2024 11:55 AM CDT Metastatic melanoma (HCC) PATHOLOGY SURGICAL Routine 09/04/2024 1:02 PM CDT Metastatic melanoma (HCC) Subcutaneous nodule of left lower extremity EXC SKIN MALIG 0.6-1CM TRUNK,ARM,LEG Routine 09/04/2024 11:15 AM CDT Metastatic melanoma (HCC) GENETIC TEST 09/04/2024 12:00 AM CDT GENETIC TEST 09/04/2024 12:00 AM CDT CMP (COMPREHENSIVE METABOLIC PANEL) STAT 08/24/2024 12:05 PM CDT Metastatic melanoma (HCC) C. DIFF BY PCR Routine 08/24/2024 11:39 AM CDT Diarrhea, unspecified type C. DIFFICILE BY PCR Routine 08/24/2024 11:39 AM CDT Diarrhea, unspecified type CBC WITH AUTO DIFFERENTIAL STAT 08/20/2024 2:00 PM CDT Metastatic melanoma (HCC) COMPLETE BLOOD COUNT (CBC) WITH DIFF STAT 08/20/2024 2:00 PM CDT Metastatic melanoma (HCC) CMP (COMPREHENSIVE METABOLIC PANEL) STAT 08/20/2024 2:00 PM CDT Metastatic melanoma (HCC) GENETIC TEST 08/20/2024 12:[address] TUMOR IMAGING WHOLE BODY Routine 08/15/2024 4:30 PM CDT Metastatic melanoma (HCC) CMP (COMPREHENSIVE METABOLIC PANEL) STAT 08/15/2024 11:35 AM CDT Metastatic melanoma (HCC) CMP (COMPREHENSIVE METABOLIC PANEL) STAT 08/13/2024 11:39 AM CDT Metastatic melanoma (HCC) CBC WITH AUTO DIFFERENTIAL Routine 08/10/2024 11:20 AM CDT Acute renal failure, unspecified acute renal failure type (HCC) BASIC METABOLIC PANEL W/ CALCIUM TOTAL Routine 08/10/2024 11:20 AM CDT Acute renal failure, unspecified acute renal failure type (HCC) COMPLETE BLOOD COUNT (CBC) WITH DIFF Routine 08/10/2024 11:20 AM CDT Acute renal failure, unspecified acute renal failure type (HCC) CMP (COMPREHENSIVE METABOLIC PANEL) STAT 08/08/2024 12:00 PM CDT Metastatic melanoma (HCC) CMP (COMPREHENSIVE METABOLIC PANEL) STAT 08/06/2024 1:13 PM CDT CBC WITH AUTO DIFFERENTIAL Routine 08/03/2024 4:32 AM CDT THYROXINE (T4) FREE Routine 08/03/2024 4:32 AM CDT TRIIODOTHYRININE (T3) FREE Routine 08/03/2024 4:32 AM CDT COMPLETE BLOOD COUNT (CBC) WITH DIFF Routine 08/03/2024 4:32 AM CDT BASIC METABOLIC PANEL W/ CALCIUM TOTAL Routine 08/03/2024 4:32 AM CDT RHYTHM STRIP 08/03/2024 12:00 AM CDT RHYTHM STRIP 08/03/2024 12:00 AM CDT CBC WITH AUTO DIFFERENTIAL STAT 08/02/2024 4:36 AM CDT COMPLETE BLOOD COUNT (CBC) WITH DIFF STAT 08/02/2024 4:36 AM CDT BASIC METABOLIC PANEL W/ CALCIUM TOTAL STAT 08/02/2024 4:36 AM CDT RHYTHM STRIP 08/02/2024 12:00 AM CDT RHYTHM STRIP 08/02/2024 12:00 AM CDT RHYTHM STRIP 08/02/2024 12:00 AM CDT C. DIFF BY PCR STAT 08/01/2024 7:08 PM CDT C. DIFFICILE BY PCR STAT 08/01/2024 7:08 PM CDT CULTURE, BLOOD STAT 08/01/2024 3:48 PM CDT XR CHEST SINGLE VIEW PORTABLE STAT 08/01/2024 2:49 PM CDT CULTURE, BLOOD STAT 08/01/2024 2:17 PM CDT CRITICAL CARE Routine 08/01/2024 2:16 PM CDT MINT GREEN LI HEPARIN/SST TOP TUBE STAT 08/01/2024 1:30 PM CDT LAVENDER TOP TUBE STAT 08/01/2024 1:30 PM CDT GOLD TOP TUBE STAT 08/01/2024 1:30 PM CDT BLUE TOP TUBE STAT 08/01/2024 1:30 PM CDT EXTRA TUBES STAT 08/01/2024 1:30 PM CDT CBC WITH AUTO DIFFERENTIAL STAT 08/01/2024 11:05 AM CDT Metastatic melanoma (HCC) THYROID STIMULATING HORMONE (TSH) STAT 08/01/2024 11:05 AM CDT Metastatic melanoma (HCC) COMPLETE BLOOD COUNT (CBC) WITH DIFF STAT 08/01/2024 11:05 AM CDT Metastatic melanoma (HCC) CMP (COMPREHENSIVE METABOLIC PANEL) STAT 08/01/2024 11:05 AM CDT Metastatic melanoma (HCC) MAGNESIUM (MG) STAT 08/01/2024 11:05 AM CDT RHYTHM STRIP 08/01/2024 12:00 AM CDT CBC WITH AUTO DIFFERENTIAL Routine 07/30/2024 4:23 AM CDT COMPLETE BLOOD COUNT (CBC) WITH DIFF Routine 07/30/2024 4:23 AM CDT BASIC METABOLIC PANEL W/ CALCIUM TOTAL Routine 07/30/2024 4:23 AM CDT RHYTHM STRIP 07/30/2024 12:00 AM CDT RHYTHM STRIP 07/30/2024 12:00 AM CDT MINT RACHID BASURTO HEPARIN/SST TOP TUBE Routine 07/29/2024 4:30 AM CDT CBC WITH AUTO DIFFERENTIAL Routine 07/29/2024 4:30 AM CDT COMPLETE BLOOD COUNT (CBC) WITH DIFF Routine 07/29/2024 4:30 AM CDT BASIC METABOLIC PANEL W/ CALCIUM TOTAL Routine 07/29/2024 4:30 AM CDT HEPATITIS PANEL ACUTE (AHP) Routine 07/29/2024 4:30 AM CDT C3 COMPLEMENT GLOBULIN B-1C Routine 07/29/2024 4:30 AM CDT C4 COMPLEMENT Routine 07/29/2024 4:30 AM CDT RHYTHM STRIP 07/29/2024 12:00 AM CDT RHYTHM STRIP 07/29/2024 12:00 AM CDT RHYTHM STRIP 07/29/2024 12:00 AM CDT ANCA MPO PR3 Routine 07/28/2024 10:15 AM CDT ANCA IFA SCREEN Routine 07/28/2024 10:15 AM CDT GLOMERULAR BASEMENT MEMBRANE ANTIBODY, IGG Routine 07/28/2024 10:15 AM CDT HEPATITIS C ANTIBODY Routine 07/28/2024 10:15 AM CDT ANCA PANEL SCREEN W/ MPO & PR3, TITER IF POS Routine 07/28/2024 10:15 AM CDT ANTINUCLEAR ANTIBODY (BARRETT), TITER IF POS Routine 07/28/2024 10:15 AM CDT UR PROTEIN/CREATININE RATIO Routine 07/28/2024 10:15 AM CDT BASIC METABOLIC PANEL W/ CALCIUM TOTAL Timed 07/28/2024 10:15 AM CDT CBC WITH AUTO DIFFERENTIAL Routine 07/28/2024 3:34 AM CDT COMPLETE BLOOD COUNT (CBC) WITH DIFF Routine 07/28/2024 3:34 AM CDT BASIC METABOLIC PANEL W/ CALCIUM TOTAL Timed 07/28/2024 3:34 AM CDT RHYTHM STRIP 07/28/2024 12:00 AM CDT RHYTHM STRIP 07/28/2024 12:00 AM CDT RHYTHM STRIP 07/28/2024 12:00 AM CDT US RENAL COMPLETE Stat with Interpretation 07/27/2024 12:40 PM CDT CBC WITH AUTO DIFFERENTIAL Routine 07/27/2024 4:36 AM CDT BASIC METABOLIC PANEL W/ CALCIUM TOTAL Timed 07/27/2024 4:36 AM CDT COMPLETE BLOOD COUNT (CBC) WITH DIFF Routine 07/27/2024 4:36 AM CDT RHYTHM STRIP 07/27/2024 12:00 AM CDT RHYTHM STRIP 07/27/2024 12:00 AM CDT RHYTHM STRIP 07/27/2024 12:00 AM CDT from Last 3 Months Results * (ABNORMAL) CBC WITH AUTO DIFFERENTIAL (10/02/2024 3:08 PM SOCIAL MEDIA CONTENT SPECIALIST) Only the most recent of14 resultswithin the time period is included. WBC 6.72 4.00 - 12.00 10(3)/mcL 10/02/2024 3:24 PM SOCIAL MEDIA CONTENT SPECIALIST [facility] RBC 3.73(L) 3.80 - 5.30 10(6)/mcL 10/02/2024 3:24 PM SOCIAL MEDIA CONTENT SPECIALIST [facility] HEMOGLOBIN (HGB) 11.9(L) 12.0 - 15.8 g/dL 10/02/2024 3:24 PM SOCIAL MEDIA CONTENT SPECIALIST [facility] HEMATOCRIT (HCT) 36.2 36.0 - 47.0 % 10/02/2024 3:24 PM SOCIAL MEDIA CONTENT SPECIALIST [facility] MCV 97.1(H) 82.0 - 96.0 fL 10/02/2024 3:24 PM SOCIAL MEDIA CONTENT SPECIALIST [facility] MCH 31.9 26.0 - 34.0 pg 10/02/2024 3:24 PM SOCIAL MEDIA CONTENT SPECIALIST [facility] MCHC 32.9 31.0 - 36.0 g/dL 10/02/2024 3:24 PM SOCIAL MEDIA CONTENT SPECIALIST [facility] PLATELET COUNT 204 140 - 440 10(3)/mcL 10/02/2024 3:24 PM [facility] RDW 14.3 11.8 - 15.5 % 10/02/2024 3:24 PM [facility] MPV 10.6 9.7 - 12.4 fL 10/02/2024 3:24 PM [facility] NEUTROPHILS 83.7(H) 47.0 - 73.0 % 10/02/2024 3:24 PM [facility] LYMPHOCYTES 10.7(L) 18.0 - 42.0 % 10/02/2024 3:24 PM [facility] MONOCYTES 5.4 4.0 - 12.0 % 10/02/2024 3:24 PM [facility] EOSINOPHILS 0.1 0.0 - 5.0 % 10/02/2024 3:24 PM [facility] BASOPHILS 0.1 0.0 - 1.0 % 10/02/2024 3:24 PM [facility] ABSOLUTE NEUTROPHILS 5.62 1.60 - 7.70 10(3)/[facility] 10/02/2024 3:24 PM [facility] ABSOLUTE LYMPHOCYTES 0.72(L) 1.30 - 3.20 10(3)/[facility] 10/02/2024 3:24 PM [facility] ABSOLUTE MONOCYTES 0.36 0.20 - 1.00 10(3)/[facility] 10/02/2024 3:24 PM [facility] ABSOLUTE EOSINOPHIL 0.01 0.00 - 0.40 10(3)/[facility] 10/02/2024 3:24 PM [facility] ABSOLUTE BASOPHILS 0.01 0.00 - 0.10 10(3)/[facility] 10/02/2024 3:24 PM [facility] NRBC PER 100 WBC 0 10/02/20 3:24 PM [facility] Blood Sub-Q Port Venou s Access Device (Medi-Port, Implanted Port) / Unknown 10/02/2024 3:08 PM [facility] [[email or web address]] 10/02/2024 3:08 PM SOCIAL MEDIA CONTENT SPECIALIST Markus Finley MD HEMATOLOGY ORDERABLES Fi nal Result Performing Organization Address City/[facility]/ZIP Co de Phone Number [facility] [address] [place] [address] * THYROID STIMULATING HORMONE (TSH) (10/02/2024 3:08 PM SOCIAL MEDIA CONTENT SPECIALIST) Only the most recent of5 resultswithin the time period is included. TSH 1.466 0.300 - 5.000 mIU/L 10/02/2024 3:59 PM SOCIAL MEDIA CONTENT SPECIALIST [facility] Blood Sub-Q Port Venou s Access Device (Medi-Port, Implanted Port) / Unknown 10/02/2024 3:08 PM SOCIAL MEDIA CONTENT SPECIALIST 10/02/2024 3:08 PM SOCIAL MEDIA CONTENT SPECIALIST Markus Finley MD CHEMISTRY ORDERABLES Fin al Result Performing Organization Address [facility] Co de Phone Number [facility] [address] [place] [address] * (ABNORMAL) CMP (COMPREHENSIVE METABOLIC PANEL) (10/02/2024 3:08 PM SOCIAL MEDIA CONTENT SPECIALIST) Only the most recent of12 resultswithin the time period is included. SODIUM 136 136 - 145 mmol/L 10/02/2024 3:40 PM SOCIAL MEDIA CONTENT SPECIALIST [facility] POTASSIUM 4.5 3.5 - 5.1 mmol/L 10/02/2024 3:40 PM SOCIAL MEDIA CONTENT SPECIALIST [facility] CHLORIDE 109(H) 98 - 107 mmol/L 10/02/2024 3:40 PM SOCIAL MEDIA CONTENT SPECIALIST [facility] CO2, VENOUS 21(L) 22 - 30 mmol/L 10/02/2024 3:40 PM SOCIAL MEDIA CONTENT SPECIALIST [facility] ANION GAP 10.5 <18.0 mmol/L 10/02/2024 3:40 PM SOCIAL MEDIA CONTENT SPECIALIST [facility] GLUCOSE 118(H) 70 - 99 mg/dL 10/02/2024 3:40 PM SOCIAL MEDIA CONTENT SPECIALIST [facility] BUN 21(H) 5 - 18 mg/dL 10/02/2024 3:40 PM [facility] CREATININE, BLOOD 0.94 0.60 - 1.00 mg/dL 10/02/2024 3:40 PM [facility] BUN/CREATININE RATIO 22(H) 12 - 20 ratio 10/02/2024 3:40 PM [facility] TOTAL PROTEIN 6.2(L) 6.3 - 8.2 g/dL 10/02/2024 3:40 PM [facility] ALBUMIN 3.9 3.5 - 5.0 g/dL 10/02/2024 3:40 PM [facility] A/G RATIO 1.7 1.0 - 2.2 10/02/2024 3:40 PM [facility] CALCIUM 9.0 8.7 - 10.5 mg/dL 10/02/2024 3:40 PM [facility] T BILI 0.2 0.2 - 1.2 mg/dL 10/02/2024 3:40 PM [facility] SGOT (AST) 17 5 - 34 U/L 10/02/2024 3:40 PM [facility] SGPT (ALT) 52 0 - 55 U/L 10/02/2024 3:40 PM [facility] ALKALINE PHOSPHATASE 45 40 - 150 U/L 10/02/2024 3:40 PM [facility] IS THE PATIENT REQUIRED TO BE FASTING? No 10/02/2024 3:40 PM [facility] GFR, ESTIMATED >60 >=60 10/02/2024 3:40 PM [facility] Comment: Creatinine Clearance is the preferred criteria for selecting drug dose adjustments in renally impaired patients. ??The GFR is provided as additional pertinent clinical information. GFR is reported in mL/min/1.73 sq m. Calculation based on the Chronic Kidney Disease Epidemiology Collaboration (CKD- EPI) equation refit without adjustment for race. GFR, EST. >60 >=60 11/26/2 024 3:40 PM SOCIAL MEDIA CONTENT SPECIALIST [facility] GFR, EST. NONAFRICAN >60 >=60 10/02/2024 3:40 PM SOCIAL MEDIA CONTENT SPECIALIST [facility] Blood Sub-Q Port Venou s Access Device (Medi-Port, Implanted Port) / Unknown 10/02/2024 3:08 PM SOCIAL MEDIA CONTENT SPECIALIST 10/02/2024 3:08 PM SOCIAL MEDIA CONTENT SPECIALIST Markus Finley MD CHEMISTRY ORDERABLES Fin al Result Performing Organization Address City/[facility] Co de Phone Number [facility] [address] [place] [address] * MAGNESIUM (MG) (09/11/2024 1:32 PM SOCIAL MEDIA CONTENT SPECIALIST) Only the most recent of2 resultswithin the time period is included. MAGNESIUM 2.1 1.6 - 2.6 mg/dL 09/11/2024 2:07 PM SOCIAL MEDIA CONTENT SPECIALIST [facility] Blood Sub-Q Port Venou s Access Device (Medi-Port, Implanted Port) / Unknown 09/11/2024 1:32 PM SOCIAL MEDIA CONTENT SPECIALIST 09/11/2024 1:33 PM SOCIAL MEDIA CONTENT SPECIALIST Markus Finley MD CHEMISTRY ORDERABLES Fin al Result Performing Organization Address [facility] de Phone Number [facility] [address] [place] [address] * PATHOLOGY SURGICAL (09/04/2024 1:02 PM CDT) Case Report Surgical Pathology Report ? Case: ? Authorizing Provider: ??Zander Cha MD ? Collected: ? 09/04/2024 01:02 PM ? Ordering Location: ? [facility] - ?Received: ?09/04/2024 01:03 PM ? General Surgery - Aristes ? Pathologist: ? Romelia Horn MD PhD ? Specimen: ?Leg, Excision of skin lesion from left lower leg ? 09/06/2024 8:29 AM CDT [facility] FINAL DIAGNOSIS Skin, left lower leg, lesion, excision: - Consistent with metastatic melanoma, 4 mm - Sufficient tumor cells present for molecular studies if clinically indicated 09/06/2024 8:[address] [facility] Comment A round nodular tumor is present in the dermis. The tumor cells are large epithelioid with large pleomorphic nuclei and prominent nucleoli. There are scant pigments suggesting melanin. 09/06/2024 8:29 AM CDT [facility] Pre-Operative Diagnosis Excision of skin lesion from left lower leg 09/06/2024 8:[address] [facility] Gross Description A. Excision of skin lesion from left lower leg The specimen presents in a single formalin container for gross and microscopic examination, labeled with the patient's name, Dayanara BrandAguilar , and designated as left lower leg skin [...] 44 minutes. KS/sb 09/06/2024 8:29 AM CDT [facility] Microscopic Description Microscopic examination was performed which supports the final diagnosis. All control tissues stained appropriately. 09/06/2024 8:29 AM CDT [facility] Other LOWER LIMB STRUCTURE / Unknown Non-Phlebotomy Collection / Unknown 09/04/2024 1:02 PM CDT 09/04/2024 1:03 PM CDT us Zander Cha MD PATHOLOGY/CYTOLOGY ORDERABLES Fi nal Result [facility] [address] [place] [address] * EXC SKIN MALIG 0.6-1CM TRUNK,ARM,LEG (09/04/2024 [...] cm. ?? Surgeon: Zander Cha MD Home Appliance Installer: Debo Bush RN Anesthesia: ??3 cc 1% [...] MD PROCEDURE/MINOR SURGICAL ORDERAB LES Final Result * GENETIC TEST (09/04/2024 12:00 AM CDT) Only the most recent of3 resultswithin the time period is included. 09/04/2024 us Provider Scan IMMUNOLOGY ORDERABLES Final Resu lt SCAN * C. DIFF BY PCR (08/24/2024 11:39 AM CDT) Only the most recent of2 resultswithin the time period is included. C DIFF TOXIN DNA BY PCR Negative Negative, Invalid 08/24/2024 1:42 PM CDT [facility] Other STOOL SPECIMEN / Unknown Non-Phlebotomy Collection / Unknown 08/24/2024 11:39 AM CDT 08/24/2024 11:39 AM CDT Markus Finley MD MICROBIOLOGY - GENERAL O RDERABLES Final Result [facility] [address] [place] [address] * PET CT TUMOR IMAGING WHOLE BODY (08/15/2024 4:30 PM CDT) Anatomical Region Laterality Modality BODY N/A Positron Emissio n Tomography (PET) 08/16/2024 11:3 0 AM CDT Impressions 08/16/2024 11:33 AM CDT IMPRESSION: Hypermetabolic left inguinal lymph node measuring 1.4 x 0.8 cm is suspicious for metastatic disease. Subcutaneous nodules in the medial distal left thigh and anterior to the mid left tibia have slightly increased in size with slightly decreased metabolic activity. ??Small differences in activity may be due to technical factors (separate leg acquisition uptake time is different than the whole-body acquisition uptake time). ??The increase in size of the nodules is suspicious for progression. Subcutaneous nodule along the dorsum of the left foot has an SUV of 3.1 compared to 4.3 previously. An additional subcutaneous nodule anterior to the distal tibia has an SUV of 1.1 compared to 4.1 previously. ?? Narrative 08/16/2024 11:33 AM CDT EXAM DESCRIPTION: ?? PET CT TUMOR IMAGING WHOLE BODY RADIOPHARMACEUTICAL: 12.9 ??mCi F-18 Fluorodeoxyglucose (FDG) via a ?? right chest port ??IV site REASON FOR STUDY: History of metastatic melanoma. ??Last immunotherapy reportedly 07/17/2024. TECHNIQUE: The patient's fasting blood glucose level, measured by glucometer before injection of FDG, was ??100 ??mg/dL. After intravenous administration of FDG, noncontrast CT images were obtained for attenuation correction and for fusion with emission PET images to allow for anatomical localization of PET findings. Emission PET images were then obtained. The reported standardized uptake value maximum (SUVmax) values have been normalized to body weight (SUVbw). The area imaged spanned the region from the ??skull vertex ??to the ??toes . ??The time from injection of FDG to start of imaging was ??71 ??minutes. COMPARISON: PET-CT 04/03/2024 FINDINGS: For reference, the maximum SUV of the ascending thoracic aorta is ??2.1 . ??The maximum SUV of the liver is ??3.2 . Head: Normal FDG uptake is seen in the included portion of the brain. Neck: Physiologic uptake is present in the paired lymphoid structures. No hypermetabolic lymphadenopathy. Chest: No hypermetabolic lymphadenopathy in the axillae, mediastinum, or gloria. ?? No abnormal FDG activity is seen in the lung parenchyma. No suspicious pulmonary nodule. ?? Heart size is top-normal. ??Small pericardial effusion. ??No significant coronary artery calcification. No pleural effusion. ? Right chest port with tip terminating at the mid SVC. Abdomen and Pelvis: No focal hypermetabolic liver lesion. ?? No calcified gallstones. ? The spleen is normal. ?? Normal pancreas without focal FDG activity. ?? No focal hypermetabolic adrenal lesion. ?? Normal genitourinary activity. ?? The bladder is decompressed and incompletely evaluated. ?? Physiologic uptake throughout the bowel. ? A left inguinal lymph node measuring 1.4 x 0.8 cm as an SUV of 5.7. ?? Previously at this location, there was fat stranding and diffuse low-level uptake from presumed postoperative uptake. ??This lymph node is suspicious. ? The subcutaneous nodule in the medial distal left thigh measures 1.2 cm with an SUV of 12.8 compared to 0.8 cm with an SUV of 13.7. ?? There is an adjacent hypermetabolic nodule. ??Nodule anterior to the mid left tibia in the subcutaneous tissues measures 1.2 cm with an SUV of 7.1 compared to 0.9 cm with an SUV of 11.7 previously. ?? Subcutaneous nodule along the dorsum of the left foot measures 1.3 cm with an SUV of 3.1 compared to 1 cm with an SUV of 4.3 previously. ??An additional subcutaneous nodule anterior to the distal tibia has an SUV of 1.1 compared to 4.1 previously. Bones: No acute or aggressive appearing osseous lesions. THIS IS AN ELECTRONICALLY VERIFIED FINAL REPORT 08/16/2024 11:30 AM - Electronically signed by ??Zachariah Carrizales M.D. LB: KRUNAL D: ??08/16/2024 11:30 AM T: ??08/16/2024 11:30 AM Report ID: [id number] Reading Location: ??[id number] Procedure Note Zachariah Carrizales MD - 08/16/2024 EXAM DESCRIPTION: PET CT TUMOR IMAGING WHOLE BODY RADIOPHARMACEUTICAL: 12.9 mCi F-18 Fluorodeoxyglucose (FDG) via a right chest port IV site REASON FOR STUDY: History of metastatic melanoma. Last immunotherapy reportedly 07/17/2024. TECHNIQUE: The patient's fasting blood glucose level, measured by glucometer before injection of FDG, was 100 mg/dL. After intravenous administration of FDG, noncontrast CT images were obtained for attenuation correction and for fusion with emission PET images to allow for anatomical localization of PET findings. Emission PET images were then obtained. The reported standardized uptake value maximum (SUVmax) values have been normalized to body weight (SUVbw). The area imaged spanned the region from the skull vertex to the toes . The time from injection of FDG to start of imaging was 71 minutes. COMPARISON: PET-CT 04/03/2024 FINDINGS: For reference, the maximum SUV of the ascending thoracic aorta is 2.1 . The maximum SUV of the liver is 3.2 . Head: Normal FDG uptake is seen in the included portion of the brain. Neck: Physiologic uptake is present in the paired lymphoid structures. No hypermetabolic lymphadenopathy. Chest: No hypermetabolic lymphadenopathy in the axillae, mediastinum, or gloria. No abnormal FDG activity is seen in the lung parenchyma. No suspicious pulmonary nodule. Heart size is top-normal. Small pericardial effusion. No significant coronary artery calcification. No pleural effusion. Right chest port with tip terminating at the mid SVC. Abdomen and Pelvis: No focal hypermetabolic liver lesion. No calcified gallstones. The spleen is normal. Normal pancreas without focal FDG activity. No focal hypermetabolic adrenal lesion. Normal genitourinary activity. The bladder is decompressed and incompletely evaluated. Physiologic uptake throughout the bowel. A left inguinal lymph node measuring 1.4 x 0.8 cm as an SUV of 5.7. Previously at this location, there was fat stranding and diffuse low-level uptake from presumed postoperative uptake. This lymph node is suspicious. The subcutaneous nodule in the medial distal left thigh measures 1.2 cm with an SUV of 12.8 compared to 0.8 cm with an SUV of 13.7. There is an adjacent hypermetabolic nodule. Nodule anterior to the mid left tibia in the subcutaneous tissues measures 1.2 cm with an SUV of 7.1 compared to 0.9 cm with an SUV of 11.7 previously. Subcutaneous nodule along the dorsum of the left foot measures 1.3 cm with an SUV of 3.1 compared to 1 cm with an SUV of 4.3 previously. An additional subcutaneous nodule anterior to the distal tibia has an SUV of 1.1 compared to 4.1 previously. Bones: No acute or aggressive appearing osseous lesions. THIS IS AN ELECTRONICALLY VERIFIED FINAL REPORT 08/16/2024 11:30 AM - Electronically signed by Zachariah Carrizales M.D. LB: KRUNAL Report ID: [id number] Reading Location: [id number] IMPRESSION: Hypermetabolic left inguinal lymph node measuring [...] an SUV of 3.1 compared to 4.3 previously. An additional subcutaneous nodule anterior to the distal tibia has an SUV of 1.1 compared to 4.1 previously. [facility] Luana Finley MD IM PET Final Re sult * (ABNORMAL) BASIC METABOLIC PANEL W/ CALCIUM TOTAL (08/10/2024 11:20 AM CDT) Only the most recent of8 resultswithin the time period is included. SODIUM 133(L) 136 - 145 mmol/L 08/10/2024 11:56 AM CDT [facility] POTASSIUM 3.9 3.5 - 5.1 mmol/L 08/10/2024 11:56 AM CDT [facility] CHLORIDE 105 98 - 107 mmol/L 08/10/2024 11:56 AM CDT [facility] CO2, VENOUS 23 22 - 30 mmol/L 08/10/2024 11:56 AM CDT [facility] ANION GAP 8.9 <18.0 mmol/L 08/10/2024 11:56 AM CDT [facility] GLUCOSE 138(H) 70 - 99 mg/dL 08/10/2024 11:56 AM CDT [facility] BUN 15 5 - 18 mg/dL 08/10/2024 11:56 AM CDT [facility] CREATININE, BLOOD 0.86 0.60 - 1.00 mg/dL 08/10/2024 11:56 AM CDT [facility] BUN/CREATININE RATIO 17 12 - 20 ratio 08/10/2024 11:56 AM CDT [facility] CALCIUM 8.9 8.7 - 10.5 mg/dL 08/10/2024 11:56 AM CDT [facility] GFR, ESTIMATED >60 >=60 08/10/2024 11:56 AM CDT [facility] Comment: Creatinine Clearance is the preferred criteria for selecting drug dose adjustments in renally impaired patients. ??The GFR is provided as additional pertinent clinical information. GFR is reported in mL/min/1.73 sq m. Calculation based on the Chronic Kidney Disease Epidemiology Collaboration (CKD- EPI) equation refit without adjustment for race. GFR, EST. >60 >=60 024 11:56 AM CDT [facility] GFR, EST. NONAFRICAN >60 >=60 08/10/2024 11:56 AM CDT [facility] Blood Sub-Q Port Venou s Access Device (Medi-Port, Implanted Port) / Unknown 08/10/2024 11:20 AM CDT 08/10/2024 11:20 AM CDT us Lee Lan MD CHEMISTRY ORDERABLES Fin al Result [facility] [address] [place] [address] * THYROXINE (T4) FREE (08/03/2024 4:32 AM CDT) T4 FREE 0.7 0.7 - 1.9 ng/dL 08/03/2024 7:20 AM CDT [facility] Blood Venipuncture / Unknown 08/03/2024 4:32 AM CDT 08/03/2024 6:28 AM CDT Urbano Quiñonez MD CHEMISTRY ORDERABLES Final Result Performing Organization Address City/[facility]/ZIP Co de Phone Number [facility] [place] [address] * Triiodothyrinine (T3) Free (08/03/2024 4:32 AM CDT) FREE T3 1.6 1.6 - 3.9 pg/mL 08/03/2024 4:08 PM CDT [facility] Blood Venipuncture / Unknown 08/03/2024 4:32 AM CDT 08/03/2024 6:28 AM CDT Urbano Quiñonez MD CHEMISTRY ORDERABLES Final Result Performing Organization Address [facility] Co de Phone Number [facility] [address] [place] [address], [place] * RHYTHM STRIP (08/03/2024 12:00 AM CDT) Only the most recent of17 resultswithin the time period is included. 08/03/2024 us Provider Scan IMG ECG ORDERABLES Final Result RESULTING AGENCY * Blood Culture #2 (08/01/2024 3:48 PM CDT) Only the most recent of2 resultswithin the time period is included. CULTURE RESULTS NO GROWTH WITHIN 5 DAYS, FINAL RESULT 08/06/2024 5:01 PM CDT [facility] Culture BLOOD SPECIMEN / Unknown Venipuncture / Unknown 08/01/2024 3:48 PM CDT 08/01/2024 4:10 PM CDT us Gael Morales MD MICROBIOLOGY - GENERAL ORD ERABLES Final Result [facility] [address] [place] [address], [place] * XR CHEST SINGLE VIEW PORTABLE (08/01/2024 2:49 PM CDT) Anatomical Region Laterality Modality Chest N/A Computed Radiogr aphy 08/01/2024 2:59 PM CDT Impressions 08/01/2024 3:01 PM CDT IMPRESSION: No acute cardiopulmonary abnormality. Narrative 08/01/2024 3:01 PM CDT EXAM DESCRIPTION: XR CHEST SINGLE VIEW PORTABLE REASON FOR STUDY: no chest complaints- weakness, dehydration, some vomiting since last night- Hx immunotherapy for melanoma of left foot- ?? TECHNIQUE: Single ??radiographic view(s) of the chest. COMPARISON: Chest radiograph 06/27/2024 FINDINGS: LUNGS: ??Eventration of the right hemidiaphragm. ??No focal opacity, pleural effusion, or pneumothorax. ?? HEART/MEDIASTINUM: ??Cardiac silhouette normal in size. Mediastinal and hilar contours appear normal. LINES/TUBES: ??Stable right Port-A-Cath terminates in the superior cavoatrial junction. BONES: ??No acute osseous abnormality. THIS IS AN ELECTRONICALLY VERIFIED FINAL REPORT 08/01/2024 2:59 PM - Electronically signed by ??Nisreen Esteban M.D. FT: FT D: ??08/01/2024 2:59 PM T: ??08/01/2024 2:59 PM Report ID: [id number] Reading Location: ??[id number] Procedure Note Nisreen Lara MD - 08/01/2024 EXAM DESCRIPTION: XR CHEST SINGLE VIEW PORTABLE REASON FOR STUDY: no chest complaints- weakness, dehydration, some vomiting since last night- Hx immunotherapy for melanoma of left foot- TECHNIQUE: Single radiographic view(s) of the chest. COMPARISON: Chest radiograph 06/27/2024 FINDINGS: LUNGS: Eventration of the right hemidiaphragm. No focal opacity, pleural effusion, or pneumothorax. HEART/MEDIASTINUM: Cardiac silhouette normal in size. Mediastinal and hilar contours appear normal. LINES/TUBES: Stable right Port-A-Cath terminates in the superior cavoatrial junction. BONES: No acute osseous abnormality. THIS IS AN ELECTRONICALLY VERIFIED FINAL REPORT 08/01/2024 2:59 PM - Electronically signed by Nisreen Esteban M.D. FT: FT Report ID: [id number] Reading Location: [place] [address] IMPRESSION: No acute cardiopulmonary abnormality. Gael Morales MD IMG DIAGNOSTIC ORDERABLES Final Result * Critical Care (08/01/2024 2:16 PM CDT) Narrative Gael Morales MD - 08/01/2024 2:16 PM CDT Gael Morales MD ? 08/02/2024 ??5:40 PM Critical Care Performed by: Gael Morales MD Authorized by: Gael Morales MD ?? Critical care provider statement: ??Critical care time (minutes): ??35 ??Critical care was necessary to treat or prevent imminent or life-threatening deterioration of the following conditions: ??Renal failure ??Critical care was time spent personally by me on the following activities: ??Development of treatment plan with patient or surrogate, discussions with consultants, discussions with primary provider, evaluation of patient's response to treatment, examination of patient, obtaining history from patient or surrogate, ordering and performing treatments and interventions, ordering and review of radiographic studies, ordering and review of laboratory studies, re-evaluation of patient's condition and review of old charts ??I assumed direction of critical care for this patient from another provider in my specialty: no ?Care discussed with: admitting provider ?? Gael Morales MD PROCEDURE/MINOR SURGICAL O RDERABLES Final Result * MINT RACHID BASURTO HEPARIN/SST TOP TUBE (08/01/2024 1:30 PM CDT) Only the most recent of2 resultswithin the time period is included. Blood No Phlebotomy Charged / Unknown 08/01/2024 1:30 PM CDT 08/01/2024 1:30 PM CDT Gael Morales MD HEMATOLOGY ORDERABLES Susan l Result Performing Organization Address [facility] Co de Phone Number [facility] [address] [place] [address] * Gold Top Tube (08/01/2024 1:30 PM CDT) Blood No Phlebotomy Charged / Unknown 08/01/2024 1:30 PM CDT 08/01/2024 1:30 PM CDT Gael Morales MD CHEMISTRY ORDERABLES Final Result Performing Organization Address [facility] Co de Phone Number [facility] [address] [place] [address] * Blue Top Tube (08/01/2024 1:30 PM CDT) Blood No Phlebotomy Charged / Unknown 08/01/2024 1:30 PM CDT 08/01/2024 1:30 PM CDT Gael Morales MD HEMATOLOGY ORDERABLES Susan l Result Performing Organization Address [facility] Co de Phone Number [facility] [address] [place] [address] * Lavender Top Tube (08/01/2024 1:30 PM CDT) Blood No Phlebotomy Charged / Unknown 08/01/2024 1:30 PM CDT 08/01/2024 1:30 PM CDT Gael Morales MD HEMATOLOGY ORDERABLES Susan l Result Performing Organization Address [facility] Co de Phone Number [facility] [address] [place] [address] * Hepatitis Panel Acute (AHP) (07/29/2024 4:30 AM CDT) Pathologist [facility] HEPATITIS A IGM ANTIBODY NON DETECTED NON DETECTED 07/29/2024 3:37 PM CDT [facility] Comment: IGM Antibodies to HAV not detected. ??Does not exclude early acute or recovered HAV infection. HEP B CORE AB (IGM) NON DETECTED NON DETECTED 07/29/2024 3:37 PM CDT [facility] Comment:IGM anti-HBC not det ected. Does not exclude the possibility of exposure to or infection with HBV. HEPATITIS B SURFACE ANTIGEN NON DETECTED NON DETECTED 07/29/2024 3:37 PM CDT [facility] Comment:A nonreactive test r esult does not exclude the possibility of exposure to or infection with Hepatitis B virus. A nonreactive test result in individuals with prior exposure to hepatitis B may be due to antigen levels below the detection limit of this assay or lack of antigen reactivity to the antibodies in this assay. hepatitis C antibody 0.17 <1 S/CO 07/29/2024 3:37 PM CDT [facility] Comment: Signal/Cutoff ratio ??< 0.79 is Nondetected Signal/Cutoff ratio 0.80-0.99 is Grayzone Signal/Cutoff ratio > 0.99 is Detected Supplemental assays are recommended if signal/cutoff ratio is >/=1.00. ??Signal/cutoff ratio result >/= 5.00 is 97% predictive of positivity for recombinant immunoblot assay (RIBA) and will be reported to the [place] [facility] as required. Blood Venipuncture / Unknown 07/29/2024 4:30 AM CDT 07/29/2024 5:15 AM CDT us Urbano Quiñonez MD HEMATOLOGY ORDERABLES Final Result [facility] [address] [place] [address], * C4 Complement (07/29/2024 4:30 AM CDT) [facility] C4 COMPLEMENT 23 15 - 57 mg/dL 07/29/2024 3:18 PM CDT [facility] Blood Venipuncture / Unknown 07/29/2024 4:30 AM CDT 07/29/2024 5:15 AM CDT Urbano Quiñonez MD CHEMISTRY ORDERABLES Final Result [facility] [address] [place] [address], [place] * C3 Complement Globulin B-1C (07/29/2024 4:30 AM CDT) C3 COMPLEMENT 133 83 - 193 mg/dL 07/29/2024 3:18 PM CDT [facility] Blood Venipuncture / Unknown 07/29/2024 4:30 AM CDT 07/29/2024 5:15 AM CDT Urbano Quiñonez MD CHEMISTRY ORDERABLES Final Result Performing Organization Address City/[facility]/ZIP Co de Phone Number [facility] [address] [place] [address], [place] * GLOMERULAR BASEMENT MEMBRANE AB, IGG (07/28/2024 10:15 AM CDT) GLOMERULAR BASEMENT MEMBRANE (GBM) <0.2 <1.0 AI 08/07/2024 12:48 PM CDT [facility] Blood Venipuncture / Unknown 07/28/2024 10:15 AM CDT 07/28/2024 12:09 PM CDT Narrative [facility] - 08/07/2024 12:48 PM CDT Antibody testing was performed by multiplex flow immunoassay on the [employer] platform. us Urbano Quiñonez MD IMMUNOLOGY ORDERABLES Final Result [facility] [address] [place] [address], [place] * ANCA MPO PR3 (07/28/2024 10:15 AM CDT) PROTEINASE 3 AB <0.2 <1.0 AI 12:48 PM CDT [facility] MYELOPEROXIDASE AB <0.2 <1.0 AI 2023 12:48 PM CDT [facility] Blood Venipuncture / Unknown 07/28/2024 10:15 AM CDT 07/28/2024 12:09 PM CDT us Urbano Quiñonez MD IMMUNOLOGY ORDERABLES Final Result [facility] [address] [place] [address], * ANCA IFA SCREEN (07/28/2024 10:15 AM CDT) ANCA IFA SCREEN <1:20 <1:20 titer 07/30/20 24 12:14 PM CDT [facility] Comment: Expected result is < 1:10. ANCA TITER Not Applicable <1:20, Not Applicable titer 07/30/2024 12:14 PM CDT [facility] ANCA PATTERN Not Applicable 07/30/2024 12:14 PM CDT [facility] Comment: Antineutrophil cytoplasmic antibodies (ANCA) are found in the sera of patients with necrotizing vasculitides and hence, serve as an aid to the diagnosis of these disorders. ??ANCA react with enzymes in the cytoplasmic granules of human neutrophils including proteinase 3 (PR3), myeloperoxidase (MPO), elastase, and cathepsin G. ANCA can occur in patients with autoimmune vasculitis including Granulomatosis with polyangiitis (GPA) (formerly Devin's granulomatosis) , microscopic polyangiitis (MPA), or organ limited variants, and bowel diseases and other autoimmune disorders. Detection of ANCA is a well-established diagnostic test for the evaluation of patients suspected of having autoimmune vasculitis. Antibodies to PR3 occur in patients with WG (both classical WG and limited WG) and produce a characteristic pattern of granular cytoplasmic fluorescence on ethanol-fixed neutrophils called the cANCA pattern. Antibodies to MPO occur predominantly in patients with MPA and produce a pattern of perinuclear cytoplasmic fluorescence on ethanol-fixed neutrophils called the pANCA pattern. ??The presence of an antinuclear antibody (BARRETT) may mimic a pANCA on ethanol-fixed neutrophils. When used for diagnosis, it is recommended that specific tests for proteinase 3 (PR3) ANCA and myelperoxidase (MPO) ANCA be performed in addition to testing for cANCA and pANCA. cANCA titer may be useful for monitoring treatment response in patients with WG (systemic or organ-limited disease). ??Increasing titer suggests relapse of disease while a decreasing titer suggests successful treatment. Blood Venipuncture / Unknown 07/28/2024 10:15 AM CDT 07/28/2024 12:09 PM CDT Urbano Quiñonez MD IMMUNOLOGY ORDERABLES Final Result Performing Organization Address City/[facility] Co de Phone Number [facility] [address] [place] [address], [place] * (ABNORMAL) Ur Protein/Creatinine Ratio (07/28/2024 10:15 AM CDT) [facility] UR PROTEIN RAND, QT 170.7 mg/dL 07/28/2024 12:27 PM CDT [facility] Comment:No reference range h as been established. Consider Clinical Correlation. URINE CREATININE 532.6 mg/dL 07/28/2024 12:27 PM CDT [facility] Comment:No reference range h as been established. Consider Clinical Correlation. URINE PROTEIN/CREATIN INE RATIO 0.32(H) <0.25 07/28/2024 12:27 PM CDT [facility] Urine Non-Phlebotomy Collection / Unknown 07/28/2024 10:15 AM CDT 07/28/2024 12:09 PM CDT Urbano Quiñonez MD URINE ORDERABLES Final Resu lt Performing Organization Address [facility] Co de Phone Number [facility] [address] [place] [address] * Hepatitis C Antibody (07/28/2024 10:15 AM CDT) hepatitis C antibody 0.18 <1 S/CO 07/28/2024 10:27 PM CDT [facility] Comment: Signal/Cutoff ratio ??< 0.79 is Nondetected Signal/Cutoff ratio 0.80-0.99 is Grayzone Signal/Cutoff ratio > 0.99 is Detected Supplemental assays are recommended if signal/cutoff ratio is >/=1.00. ??Signal/cutoff ratio result >/= 5.00 is 97% predictive of positivity for recombinant immunoblot assay (RIBA) and will be reported to the [place] [facility] as required. Blood Venipuncture / Unknown 07/28/2024 10:15 AM CDT 07/28/2024 12:09 PM CDT us Urbano Quiñonez MD CHEMISTRY ORDERABLES Final Result Performing Organization Address City/[facility]/ZIP Co de Phone Number [facility] [address] [place] [address], [place] * Antinuclear Antibody (BARRETT), Titer If Pos (07/28/2024 10:15 AM CDT) Pathologist [facility] BARRETT SCREEN Negative Negative titer 07/30/2024 11:28 AM CDT [facility] Comment: Antinuclear autoantibodies not detected by IFA at a 1:80 screening dilution of HEp-2 cells. BARRETT TITER Not Applicable Negative, See comment, Not Applicable titer 07/30/2024 11:28 AM CDT [facility] Comment: Antinuclear autoantibodies not detected by IFA at a 1:80 screening dilution of HEp-2 cells. BARRETT PATTERN NOT APPLICABLE 07/30/2024 11:28 AM CDT [facility] Blood Venipuncture / Unknown 07/28/2024 10:15 AM CDT 07/28/2024 12:09 PM CDT us Urbano Quiñonez MD IMMUNOLOGY ORDERABLES Final Result Performing Organization Address City/[facility]/ZIP Co de Phone Number [facility] [address] [place] [address], [place] * US RENAL COMPLETE (07/27/2024 12:40 PM CDT) Anatomical Region Laterality Modality , Abdomen N/A Ultrasound 07/27/2024 12:4 9 PM CDT Impressions 07/27/2024 12:51 PM CDT IMPRESSION: Normal kidneys. Debris within the bladder. Correlate with urinalysis. Narrative 07/27/2024 12:51 PM CDT EXAM DESCRIPTION: US RENAL COMPLETE REASON FOR STUDY: ALEXX/ARF -- possible association with chemotherapy etiology ?? TECHNIQUE: Ultrasound of the kidneys and urinary bladder was performed with grayscale imaging. COMPARISON: CT dated 07/25/2024 FINDINGS: RIGHT KIDNEY: The right kidney measures ??13.5 cm in length. ??There is no hydronephrosis. There is normal cortical thickness and echogenicity. LEFT KIDNEY: The left kidney measures ??11.9 ??cm in length. ??There is no hydronephrosis. There is normal cortical thickness and echogenicity. URINARY BLADDER: ?? Debris is seen within the bladder. ??The urinary jets are not seen. OTHER: ?? No other additional findings. THIS IS AN ELECTRONICALLY VERIFIED FINAL REPORT 07/27/2024 12:49 PM - Electronically signed by ??Piero Chapman M.D. KN: KHARI D: ??07/27/2024 12:49 PM T: ??07/27/2024 12:49 PM Report ID: [id number] Reading Location: ??[id number] Procedure Note Piero Chapman MD - 07/27/2024 EXAM DESCRIPTION: US RENAL COMPLETE REASON FOR STUDY: ALEXX/ARF -- possible association with chemotherapy etiology TECHNIQUE: Ultrasound of the kidneys and urinary bladder was performed with grayscale imaging. COMPARISON: CT dated 07/25/2024 FINDINGS: RIGHT KIDNEY: The right kidney measures 13.5 cm in length. There is no hydronephrosis. There is normal cortical thickness and echogenicity. LEFT KIDNEY: The left kidney measures 11.9 cm in length. There is no hydronephrosis. There is normal cortical thickness and echogenicity. URINARY BLADDER: Debris is seen within the bladder. The urinary jets are not seen. OTHER: No other additional findings. THIS IS AN ELECTRONICALLY VERIFIED FINAL REPORT 07/27/2024 12:49 PM - Electronically signed by Piero Chapman M.D. KN: KHARI Report ID: [id number] Reading Location: [id number] IMPRESSION: Normal kidneys. Debris within the bladder. Correlate with urinalysis. Brayan Kang MD [facility] ORDERABLES Final Resul t from Last 3 Months Insurance Advance Directives * Full Code (Latest Code Status on File) Date Activated Date Inactivated Comments 08/01/2024 4:04 PM CPR-Full Treat ment: FULL ARREST: Attempt Resuscitation/CPR wit intubation and mechanical ventilation. PRE-ARREST: Use entire range of life support measures to stabilize the patient. * Full Code Date Activated Date Inactivated Comments 07/25/2024 2:48 PM 08/01/2024 12:37 PM CPR-Full Tr eatment: FULL ARREST: Attempt Resuscitation/CPR wit intubation and mechanical ventilation. PRE-ARREST: Use entire range of life support measures to stabilize the patient. * Full Code Date Activated Date Inactivated Comments 07/23/2024 3:37 PM 07/25/2024 11:33 AM CPR-Full Tr eatment: FULL ARREST: Attempt Resuscitation/CPR wit intubation and mechanical ventilation. PRE-ARREST: Use entire range of life support measures to stabilize the patient. * Full Code Date Activated Date Inactivated Comments 06/27/2024 11:58 AM 07/23/2024 7:48 AM CPR-Full Tr eatment: FULL ARREST: Attempt Resuscitation/CPR wit intubation and mechanical ventilation. PRE-ARREST: Use entire range of life support measures to stabilize the patient. Care Teams Certified Medical Technician Relationship Specialty Start Date End Date Pritesh Chu MD [address] [address] PCP - General Family Medicine 04/18/24 Markus Finley MD [address] [place] [address] Consulting Physician Medical Oncology 04/18/24 Zander Cha MD [address] [address] Consulting Physician Colon and Rectal Surgery 08/24/24
--- OUTSIDE RECORDS SUMMARY | 2024-10-26 08:02 | XMS_ITS | Encounter Summary ---
Author Organization [facility] Care Team Providers Care Municipal Firefighter Name Role Phone Pritesh Chu MD Primary Care Provider [phone] Markus Finley MD Unavailable [phone] Zander Cha MD Unavailable Encounter Details Date Type Department Care Team (Latest Contact Info) Description 10/21/2024 Travel Social History Tobacco Use Types Packs/Day Years Used Date Smoking Tobacco: Former Cigarettes 0.5 5.6 S tarted: 04/18/2016 Smokeless Tobacco: Never Alcohol Use Standard Drinks/Week Comments Not Currently 0 (1 standard drink = 0.6 oz pur e alcohol) quit 2023 [facility] Utilities Answer Date Recorded In the past 12 months has [employer], gas, oil, or water [email or web address] threatened to shut off services in your [...] week 09/25/2024 How often do you attend [facility] or [facility] services? Never 09/25/2024 Do you belong to any clubs o r organizations such as jewish groups, unions, fraternal or athletic groups, or [...] medical care, and heating? Somewhat hard 09/25/2024 [facility] - [...] any time in the past 12 m [facility], were you homeless or living in a halfway (including now)? 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 Lab [facility] [address] [place] [address] Markus Finley MD [address] [place] [address] 11/15/2024 2:00 PM ACCOUNT EXECUTIVE SALES REPRESENTATIVE Appointment [facility] [address] [place] [address] Markus Finley MD [address] [place] [address] Discharge Disposition: Discharged to home or Selfcare documented as of this encounter Visit Diagnoses Not on filedocumented in this encounter Care Teams Municipal Firefighter Relationship Specialty Start Date End Date Pritesh Chu MD [address] [place], [place] [id number] PCP - General Family Medicine 04/18/24 Markus Finley MD [address] [place] [address] Consulting Physician Medical Oncology 04/18/24 Zander Cha MD [address] [place] [address] Consulting Physician Colon and Rectal Surgery 08/24/24 documented as of this encounter
--- OUTSIDE RECORDS SUMMARY | 2024-10-26 08:02 | XMS_ITS | Encounter Summary ---
Author Organization [facility] Address [address] [facility] [place] [address] Phone Care Team Providers Care Windows Support Engineer Name Role Phone Pritesh Chu MD Primary Care Provider [phone] Markus Finley MD Unavailable [phone] Zander Cha MD Unavailable Encounter Details Date Type Department Care Team (Late st Contact Info) Description 09/18/2024 1:30 PM VOCATIONAL SERVICES SPECIALIST Clinical Support [facility] Oncology Services [address] [place] [phone] Markus Finley MD [address] [place] [address] Metastatic melanoma (HCC) Discharge Disposition: Discharged to home or Selfcare Social History Tobacco Use Types Packs/Day Years Used Date Smoking Tobacco: Former Cigarettes 0.5 5.6 S tarted: 04/18/2016 Smokeless Tobacco: Never Alcohol Use Standard Drinks/Week Comments Not Currently 0 (1 standard drink = 0.6 oz pur e alcohol) quit 2023 [facility] Utilities Answer Date Recorded In the past 12 months has th e electric, gas, oil, or water [employer] threatened to shut off services in your home? Patient declined 08/01/2024 Social Connection and Isolation Panel [NHANES] A nswer Date Recorded In a typical week, how many times do you talk on the phone with family, friends, or neighbors? Patient declined 08/01/2024 How often do you get togethe r with friends or relatives? Patient declined 08/01/2024 How often do you attend episcopalian or mosque serv ices? Patient declined 08/01/2024 Do you belong to any clubs o r organizations such as episcopalian groups, unions, fraternal or athletic groups, or [...] medical care, and heating? Patient declined 08/01/2024 [facility] - Occupational Stress Questionnaire Answer [...] were you homeless or living in a longterm (including now)? Patient declined 08/01/2024 Sexually Active [...] Sign Reading Time Taken Comments Blood Pressure 135/90 09/18/2024 2:53 PM VOCATIONAL SERVICES SPECIALIST Pulse 76 09/18/2024 2:53 PM VOCATIONAL SERVICES SPECIALIST Temperature 36.4 ??C (97.5 ??F) 09/18/2024 2:53 PM CS T Respiratory Rate - - Oxygen Saturation - - Inhaled Oxygen Concentration - - Weight - - Height - - Body Mass Index - - documented in this encounter Miscellaneous Notes * Interdisciplinary - Melba Pitts RN - 09/18/2024 1:30 PM CST Patient to treatment bay with significant other. Pt reports some new issues/questions for Dr. Finley. Pt noticed some swelling to her neck over the last 2 days. Says she just feels like it is swollenor feels pressure. Sometimes just feels like it is difficult to breathe. Pt wondering if this is also related to the steroids or if it could be related to her thyroid and asked if we were checking her thyroid today? This nurse told patient that we had just checked her thyroid labs and they were improved but that we can check them again today as well. Pt continues on 100 mcg synthroid. Pt c/o feeling like there is a plug in her nose by her nasal septum. Pt says that she feels a fullness and she can sometimes feel this blockage move especially before she has to blow her nose, almost like the fullness builds up. She says it just feels like something is blocking and then when she is able to relieve it for a bit there is a hole or a thinning of the skin at the nasal septum. She was able tolook up her nose somewhat and it looked white she thought. She said its hard to explain but she just feels like there is something up there blocking and she has read that these issues of thinning of skin to the nasal septum area can be related to steroids as well. Pt currently still on 40 mg in themorning and 20 mg in the evening of Predisone. Pt is not taking Colestid and never started as she is not having diarrhea. VS obtained. VS obtained. Pt port accessed per company policy, flushed without difficulty. Site secured with dressing. Labs drawn per MD orders. Fluid hydration infusing. Spoke with Dr. Finley about all of above patient concerns. Pt should decrease Predisone to 20 mg in the morning and 20 mg in the evening. It is fine that she is not taking the Colestid. For the nasal issues, recommends saline nasal spray. Likely due to steroids. If no improvement, will have to refer to ENT. Pt made aware of plan and amendable. Labs resulted. No new orders. . At completion of infusion, site flushed with NS and heparin and port de- accessed. Site secured with bandaid. Pt left in safe disposition. TIONAL SERVICES SPECIALIST documented in this encounter Plan of Treatment Upcoming Encounters Date Type Department Care Team (Late st Contact Info) Description 11/15/2024 1:00 PM VOCATIONAL SERVICES SPECIALIST Lab [facility] Laboratory Services [address] [place] [address] Markus Finley MD [address] [place] [address] 11/15/2024 2:00 PM VOCATIONAL SERVICES SPECIALIST Appointment [facility] MRI 1 [facility] [place] [id number] Markus Finley MD [address] [place] [address] Discharge Disposition: Discharged to home or Selfcare documented as of this encounter Procedures Procedure Name Priority Date/Time Associated Diagnosis Comments CBC WITH AUTO DIFFERENTIAL STAT 09/18/2024 2:21 PM VOCATIONAL SERVICES SPECIALIST Metastatic melanoma (HCC) THYROID STIMULATING HORMONE (TSH) STAT 09/18/2024 2:21 PM VOCATIONAL SERVICES SPECIALIST Metastatic melanoma (HCC) CMP (COMPREHENSIVE METABOLIC PANEL) STAT 09/18/2024 2:21 PM VOCATIONAL SERVICES SPECIALIST Metastatic melanoma (HCC) COMPLETE BLOOD COUNT (CBC) WITH DIFF STAT 09/18/2024 2:21 PM VOCATIONAL SERVICES SPECIALIST Metastatic melanoma (HCC) documented in this encounter Results * (ABNORMAL) CBC WITH AUTO DIFFERENTIAL (09/18/2024 2:21 PM VOCATIONAL SERVICES SPECIALIST) WBC 8.36 4.00 - 12.00 10(3)/mcL 09/18/2024 2:57 PM VOCATIONAL SERVICES SPECIALIST [facility] RBC 3.90 3.80 - 5.30 10(6)/mcL 09/18/2024 2:57 PM VOCATIONAL SERVICES SPECIALIST [facility] HEMOGLOBIN (HGB) 12.4 12.0 - 15.8 g/dL 09/18/2024 2:57 PM VOCATIONAL SERVICES SPECIALIST [facility] HEMATOCRIT (HCT) 37.2 36.0 - 47.0 % 09/18/2024 2:57 PM VOCATIONAL SERVICES SPECIALIST [facility] MCV 95.4 82.0 - 96.0 fL 09/18/2024 2:57 PM VOCATIONAL SERVICES SPECIALIST [facility] MCH 31.8 26.0 - 34.0 pg 09/18/2024 2:57 PM [facility] MCHC 33.3 31.0 - 36.0 g/dL 09/18/2024 2:57 PM [facility] PLATELET COUNT 211 140 - 440 10(3)/[facility] 09/18/2024 2:57 PM [facility] RDW 15.3 11.8 - 15.5 % 09/18/2024 2:57 PM [facility] MPV 9.6(L) 9.7 - 12.4 fL 09/18/2024 2:57 PM [facility] NEUTROPHILS 91.0(H) 47.0 - 73.0 % 09/18/2024 2:57 PM [facility] LYMPHOCYTES 4.8(L) 18.0 - 42.0 % 09/18/2024 2:57 PM [facility] MONOCYTES 4.1 4.0 - 12.0 % 09/18/2024 2:57 PM [facility] EOSINOPHILS 0.0 0.0 - 5.0 % 09/18/2024 2:57 PM [facility] BASOPHILS 0.1 0.0 - 1.0 % 09/18/2024 2:57 PM [facility] ABSOLUTE NEUTROPHILS 7.61 1.60 - 7.70 10(3)/[facility] 09/18/2024 2:57 PM [facility] ABSOLUTE LYMPHOCYTES 0.40(L) 1.30 - 3.20 10(3)/[facility] 09/18/2024 2:57 PM [facility] ABSOLUTE MONOCYTES 0.34 0.20 - 1.00 10(3)/[facility] 09/18/2024 2:57 PM [facility] ABSOLUTE EOSINOPHIL 0.00 0.00 - 0.40 10(3)/[facility] 09/18/2024 2:57 PM [facility] ABSOLUTE BASOPHILS 0.01 0.00 - 0.10 10(3)/[facility] 09/18/2024 2:57 PM [facility] NRBC PER 100 WBC 0 09/18/20 2:57 PM VOCATIONAL SERVICES SPECIALIST [facility] RESULTS ARE CONSISTENT WITH PERIPHERAL SMEAR REVIEW Yes 09/18/2024 2:57 PM VOCATIONAL SERVICES SPECIALIST [facility] POLYCHROMASIA 1+ 09/18/2024 2:57 PM VOCATIONAL SERVICES SPECIALIST [facility] Blood Sub-Q Port Venou s Access Device (Medi-Port, Implanted Port) / Unknown 09/18/2024 2:21 PM VOCATIONAL SERVICES SPECIALIST 09/18/2024 2:21 PM VOCATIONAL SERVICES SPECIALIST Markus Finley MD HEMATOLOGY ORDERABLES Fi nal Result Performing Organization Address City/[facility]/ZIP Co de Phone Number [facility] [address] [place] [address] * THYROID STIMULATING HORMONE (TSH) (09/18/2024 2:21 PM VOCATIONAL SERVICES SPECIALIST) TSH 1.270 0.300 - 5.000 mIU/L 09/18/2024 3:31 PM VOCATIONAL SERVICES SPECIALIST [facility] Blood Sub-Q Port Venou s Access Device (Medi-Port, Implanted Port) / Unknown 09/18/2024 2:21 PM VOCATIONAL SERVICES SPECIALIST 09/18/2024 2:21 PM VOCATIONAL SERVICES SPECIALIST Markus Finley MD CHEMISTRY ORDERABLES Fin al Result [facility] [address] [place] [address] * (ABNORMAL) CMP (COMPREHENSIVE METABOLIC PANEL) (09/18/2024 2:21 PM VOCATIONAL SERVICES SPECIALIST) SODIUM 140 136 - 145 mmol/L 09/18/2024 2:50 PM VOCATIONAL SERVICES SPECIALIST [facility] POTASSIUM 4.2 3.5 - 5.1 mmol/L 09/18/2024 2:50 PM VOCATIONAL SERVICES SPECIALIST [facility] CHLORIDE 107 98 - 107 mmol/L 09/18/2024 2:50 PM [facility] CO2, VENOUS 25 22 - 30 mmol/L 09/18/2024 2:50 PM [facility] ANION GAP 12.2 <18.0 mmol/L 09/18/2024 2:50 PM [facility] GLUCOSE 114(H) 70 - 99 mg/dL 09/18/2024 2:50 PM [facility] BUN 24(H) 5 - 18 mg/dL 09/18/2024 2:50 PM [facility] CREATININE, BLOOD 0.78 0.60 - 1.00 mg/dL 09/18/2024 2:50 PM [facility] BUN/CREATININE RATIO 31(H) 12 - 20 ratio 09/18/2024 2:50 PM [facility] TOTAL PROTEIN 5.9(L) 6.3 - 8.2 g/dL 09/18/2024 2:50 PM [facility] ALBUMIN 3.8 3.5 - 5.0 g/dL 09/18/2024 2:50 PM [facility] A/G RATIO 1.8 1.0 - 2.2 09/18/2024 2:50 PM [facility] CALCIUM 9.0 8.7 - 10.5 mg/dL 09/18/2024 2:50 PM [facility] T BILI 0.4 0.2 - 1.2 mg/dL 09/18/2024 2:50 PM [facility] SGOT (AST) 11 5 - 34 U/L 09/18/2024 2:50 PM [facility] SGPT (ALT) 45 0 - 55 U/L 09/18/2024 2:50 PM [facility] ALKALINE PHOSPHATASE 45 40 - 150 U/L 09/18/2024 2:50 PM [facility] IS THE PATIENT REQUIRED TO BE FASTING? No 09/18/2024 2:50 PM [facility] GFR, ESTIMATED >60 >=60 09/18/2024 2:50 PM VOCATIONAL SERVICES SPECIALIST [facility] Comment: Creatinine Clearance is the preferred criteria for selecting drug dose adjustments in renally impaired patients. ??The GFR is provided as additional pertinent clinical information. GFR is reported in mL/min/1.73 sq m. Calculation based on the Chronic Kidney Disease Epidemiology Collaboration (CKD- EPI) equation refit without adjustment for race. GFR, EST. >60 >=60 024 2:50 PM VOCATIONAL SERVICES SPECIALIST [facility] GFR, EST. NONAFRICAN >60 >=60 09/18/2024 2:50 PM VOCATIONAL SERVICES SPECIALIST [facility] Blood Sub-Q Port Venou s Access Device (Medi-Port, Implanted Port) / Unknown 09/18/2024 2:21 PM VOCATIONAL SERVICES SPECIALIST 09/18/2024 2:21 PM VOCATIONAL SERVICES SPECIALIST Markus Finley MD CHEMISTRY ORDERABLES Fin al Result [facility] [address] [place] [address] documented in this encounter Visit Diagnoses Diagnosis Metastatic melanoma (HCC) Melanoma of skin, site unspecified documented in this encounter Administered Medications Inactive Administered Medications - up to 3 most recent administrations Medication Order MAR Action Action Date Dose Rate Site 0.9 % sodium chloride solution at 999 mL/hr, Intravenous, ONCE, 1 dose, On Tue09/18/24 at 1400Indications:Metastatic melanoma (HCC) New Bag 09/18/2024 2:00 PM VOCATIONAL SERVICES SPECIALIST 1,000 mL 999 mL/hr Heparin Na (Pork) Lock Flsh PF SOLN 50 Units 50 Units, Intravenous, ONCE, 1 dose, On Tue09/18/24 at 1400Indications:Metastatic melanoma (HCC) Given 09/18/2024 3:11 PM VOCATIONAL SERVICES SPECIALIST 50 Units documented in this encounter Care Teams Windows Support Engineer Relationship Specialty Start Date End Date Pritesh Chu MD [address] [address] PCP - General Family Medicine 04/18/24 Markus Finley MD [address] [place] [address] Consulting Physician Medical Oncology 04/18/24 Zander Cha MD [address] [address] Consulting Physician Colon and Rectal Surgery 08/24/24 documented as of this encounter
--- OUTSIDE RECORDS SUMMARY | 2024-10-26 08:02 | XMS_ITS | Encounter Summary ---
Author Organization [facility] Address [address] [place] [address] Phone Care Team Providers Care Glass Finisher Name Role Phone Pritesh Chu MD Primary Care Provider [phone] Markus Finley MD Unavailable [phone] Zander Cha MD Unavailable Encounter Details Date Type Department Care Team (Late st Contact Info) Description 08/27/2024 Telephone [facility] Oncology Services [address] [place] [phone] Markus Finley MD [address] [place] [address] Social History Tobacco Use Types Packs/Day Years Used Date Smoking Tobacco: Former Cigarettes 0.5 8.5 S tarted: 04/18/2016 Smokeless Tobacco: Never Alcohol Use Standard Drinks/Week Comments Yes 0 (1 standard drink = 0.6 oz pur e alcohol) [facility] Utilities Answer Date Recorded In the past 12 months has [employer] gas, oil, or water company threatened to [...] declined 08/01/2024 How often do you attend adventist or orthodox serv ices? Patient declined 08/01/2024 Do you belong to any clubs o r organizations such as adventist groups, unions, fraternal or athletic groups, or [...] medical care, and heating? Patient declined 08/01/2024 [facility] - Occupational Stress Questionnaire Answer [...] time in the past [address] [facility], were you homeless or living in a chcf (including now)? Patient declined 08/01/2024 Comments No Sex and Gender Information Value Date Recorded Sex Assigned at Female 06/20/2024 8:39 AM CDT Legal Sex Female 9:04 AM CDT Gender Identity Female 06/20/2024 8:39 AM CDT Sexual Orientation Bisexual 06/20/2024 8: 39 AM CDT documented as of this encounter Miscellaneous Notes * Telephone Encounter - Marie Barclay RN - 08/27/2024 9:33 AM CDT Patient called stating she is unable to fill her Potassium prescription as she has been taking double to prescribed dose as instructed by Dr Finley. Sent message to pharmacy requesting an override for additional dosing. Potassium level 3.5 on 08/24 patient denies any on going vomiting or diarrhea. Directed patient I would follow up with pharmacy to assist with refill. documented in this encounter Plan of Treatment Upcoming Encounters Date Type Department Care Team (Late st Contact Info) Description 11/15/2024 1:00 PM SOCIAL WORK SUPERVISOR Lab [facility] Laboratory Services [address] [place] [address] Markus Finley MD [address] [place] [address] 11/15/2024 2:00 PM SOCIAL WORK SUPERVISOR Appointment [facility] MRI [address] [place] [phone] Markus Finley MD [address] [place] [address] Discharge Disposition: Discharged to home or Selfcare documented as of this encounter Visit Diagnoses Not on filedocumented in this encounter Care Teams Glass Finisher Relationship Specialty Start Date End Date Pritesh Chu MD [address] [address] PCP - General Family Medicine 04/18/24 Markus Finley MD [address] [place] [address] Consulting Physician Medical Oncology 04/18/24 Zander Cha MD [address] [address] Consulting Physician Colon and Rectal Surgery 08/24/24 documented as of this encounter
--- OUTSIDE RECORDS SUMMARY | 2024-10-26 08:02 | XMS_ITS | Encounter Summary ---
Author Organization [facility] Address [address] [place] [address] Phone Care Team Providers Care Chemists Name Role Phone Pritesh Chu MD Primary Care Provider [phone] Markus Finley MD Unavailable [phone] Zander Cha MD Unavailable Reason for Referral * Consult, Test & Initiate Treatment (Routine) - Closed Specialty Diagnoses / Procedures Referred By Contross t Referred To Contact Diagnoses Metastatic melanoma (HCC) Markus Finley MD [address] [place] [address] Phone: tel: fax: [facility] - General Surgery [facility] [address] [address] Phone: tel: fax: Referral ID Status Reason Start Date Expiration Date Visits Re quested Visits Authorized [id number] Closed 08/24/2024 1 1 Scheduling Instructions Dayanara is being referred for tissue sample for treatment options. Please contact patient for scheduling questions or concerns. Encounter Details Date Type Department Care Team (Late st Contact Info) Description 08/24/2024 11:30 AM CDT Clinical Support [facility] Oncology Services [address] [place] [address] Markus Finley MD [address] [place] [address] Diarrhea, unspecified type (Primary Dx); Metastatic melanoma (HCC) Discharge Disposition: Discharged to home or Selfcare Social History Tobacco Use Types Packs/Day Years Used Date Smoking Tobacco: Former Cigarettes 0.5 8.5 S tarted: 04/18/2016 Smokeless Tobacco: Never Alcohol Use Standard Drinks/Week Comments Yes 0 (1 standard drink = 0.6 oz pur e alcohol) [facility] Utilities Answer Date Recorded In the past 12 months has [employer], gas, oil, or water [employer] threatened to shut off services in your home? Patient declined 08/01/2024 Social Connection and Isolation Panel [NHANES] A nswer Date Recorded In a typical week, how many times do you talk on the phone with family, friends, or neighbors? Patient declined 08/01/2024 How often do you get togethe r with friends or relatives? Patient declined 08/01/2024 How often do you attend baptism or mormon serv ices? Patient declined 08/01/2024 Do you belong to any clubs o r organizations such as baptism groups, unions, fraternal or athletic groups, or [...] medical care, and heating? Patient declined 08/01/2024 [facility] of Occupat ional Health - Occupational Stress [...] any time in the past 12 m [facility], were you homeless or living in a snf (including now)? Patient declined 08/01/2024 Comments No Sex and Gender Information Value Date Recorded Sex Assigned at Female 06/20/2024 8:39 AM CDT Legal Sex Female 9:04 AM CDT Gender Identity Female 06/20/2024 8:39 AM CDT Sexual Orientation Bisexual 06/20/2024 8: 39 AM CDT documented as of this encounter Progress Notes * Kiana Henriquez, RN - 08/24/2024 11:30 AM CDT Patient ambulated to Infusion without concern. Patient brought in previously collected stool specimen for c diff/ sent to lab. Port accessed per protocol. Flushed easily; no blood return. Blood drawnperipheral x1 per Esha Gomez RN for CMP today as ordered . IV fluids given as ordered. Port deaccessed, flushed per protocol. Bandaid applied. Patient discharged without concern aware of next appointment. documented in this encounter Plan of Treatment Upcoming Encounters Date Type Department Care Team (Late st Contact Info) Description 11/15/2024 1:00 PM OPTICAL INSTRUMENT REPAIRER Lab [facility] [address] [place] [address] Markus Finley MD [address] [place] [address] 11/15/2024 2:00 PM OPTICAL INSTRUMENT REPAIRER [facility]ointment [facility] [address] [place] [address] Markus Finley MD [address] [place] [address] Discharge Disposition: Discharged to home or Selfcare Scheduled Referrals Name Type Priority Associated Diagnoses Orde r Schedule GEN SURGICAL REFERRAL Outpatient Referral Routine Metastatic melanoma (HCC) Expected: 08/24/2024, Expires: 08/24/2025 documented as of this encounter Procedures Procedure Name Priority Date/Time Associated Diagnosis Comments CMP (COMPREHENSIVE METABOLIC PANEL) STAT 08/24/2024 12:05 PM CDT Metastatic melanoma (HCC) C. DIFFICILE BY PCR Routine 08/24/2024 1 1:39 AM CDT Diarrhea, unspecified type C. DIFF BY PCR Routine 08/24/2024 11:39 AM CDT Diarrhea, unspecified type documented in this encounter Results * (ABNORMAL) CMP (COMPREHENSIVE METABOLIC PANEL) (08/24/2024 12:05 PM CDT) SODIUM 138 136 - 145 mmol/L 08/24/2024 12:43 PM CDT [facility] POTASSIUM 3.5 3.5 - 5.1 mmol/L 08/24/2024 12:43 PM CDT [facility] CHLORIDE 106 98 - 107 mmol/L 08/24/2024 12:43 PM CDT [facility] CO2, VENOUS 22 22 - 30 mmol/L 08/24/2024 12:43 PM CDT [facility] ANION GAP 13.5 <18.0 mmol/L 08/24/2024 12:43 PM CDT [facility] GLUCOSE 98 70 - 99 mg/dL 08/24/2024 12:43 PM CDT [facility] BUN 17 5 - 18 mg/dL 08/24/2024 12:43 PM CDT [facility] CREATININE, BLOOD 0.95 0.60 - 1.00 mg/dL 08/24/2024 12:43 PM CDT [facility] BUN/CREATININE RATIO 18 12 - 20 ratio 08/24/2024 12:43 PM CDT [facility] TOTAL PROTEIN 5.6(L) 6.3 - 8.2 g/dL 08/24/2024 12:43 PM CDT [facility] ALBUMIN 3.5 3.5 - 5.0 g/dL 08/24/2024 12:43 PM CDT [facility] A/G RATIO 1.7 1.0 - 2.2 08/24/2024 12:43 PM CDT [facility] CALCIUM 8.7 8.7 - 10.5 mg/dL 08/24/2024 12:43 PM CDT [facility] T BILI 0.5 0.2 - 1.2 mg/dL 08/24/2024 12:43 PM CDT [facility] SGOT (AST) 27 5 - 34 U/L 08/24/2024 12:43 PM CDT [facility] SGPT (ALT) 107(H) 0 - 55 U/L 08/24/2024 12:43 PM CDT [facility] ALKALINE PHOSPHATASE 56 40 - 150 U/L 08/24/2024 12:43 PM CDT [facility] IS THE PATIENT REQUIRED TO BE FASTING? No 08/24/2024 12:43 PM CDT [facility] GFR, ESTIMATED >60 >=60 08/24/2024 12:43 PM CDT [facility] Comment: Creatinine Clearance is the preferred criteria for selecting drug dose adjustments in renally impaired patients. ??The GFR is provided as additional pertinent clinical information. GFR is reported in mL/min/1.73 sq m. Calculation based on the Chronic Kidney Disease Epidemiology Collaboration (CKD- EPI) equation refit without adjustment for race. GFR, EST. >60 >=60 024 12:43 PM CDT [facility] GFR, EST. NONAFRICAN >60 >=60 08/24/2024 12:43 PM CDT [facility] Blood Venipuncture / Unknown 08/24/2024 12:05 PM CDT 08/24/2024 12:05 PM CDT Markus Finley MD CHEMISTRY ORDERABLES Fin al Result [facility] [address] [place] [address] * C. DIFF BY PCR (08/24/2024 11:39 AM CDT) C DIFF TOXIN DNA BY PCR Negative Negative, Invalid 08/24/2024 1:42 PM CDT [facility] Other STOOL SPECIMEN / Unknown Non-Phlebotomy Collection / Unknown 08/24/2024 11:39 AM CDT 08/24/2024 11:39 AM CDT Markus Finley MD MICROBIOLOGY - GENERAL O RDERABLES Final Result [facility] [address] [place] [address] documented in this encounter Visit Diagnoses Diagnosis Diarrhea, unspecified type- Primary Metastatic melanoma (HCC) Melanoma of skin, site unspecified documented in this encounter Administered Medications Inactive Administered Medications - up to 3 most recent administrations Medication Order MAR Action Action Date Dose Rate Site 0.9 % sodium chloride solution at 999 mL/hr, Intravenous, ONCE, 1 dose, On Tue08/24/24 at 1230, hydrationIndications:Metasta tic melanoma (HCC),Diarrhea, unspecified type New Bag 08/24/2024 11:54 AM CDT 999 mL/hr Heparin Na (Pork) Lock Flsh PF SOLN 50 Units 50 Units, Intravenous, ONCE, 1 dose, On Tue08/24/24 at 1300Indications:Metastatic melanoma (HCC),Diarrhea, unspecified type Given 08/24/2024 1:06 PM CDT 50 Units documented in this encounter Additional Health Concerns Infection Onset Date Last Indicated Resolved Time C. difficile Rule-Out 08/24/2024 08/24/20242023 1:42 PM CDT documented as of this encounter Care Teams Chemists Relationship Specialty Start Date End Date Pritesh Chu MD [address] [address] PCP - General Family Medicine 04/18/24 Markus Finley MD [address] [place] [address] Consulting Physician Medical Oncology 04/18/24 Zander Cha MD [address] [address] Consulting Physician Colon and Rectal Surgery 08/24/24 documented as of this encounter
--- OUTSIDE RECORDS SUMMARY | 2024-10-26 08:02 | XMS_ITS | Encounter Summary ---
Author Organization [facility] Address [address] [place] [address] Phone Care Team Providers Care Certified Procedural Coder Name Role Phone Pritesh Chu MD Primary Care Provider [phone] Markus Finley MD Unavailable [phone] Zander Cha MD Unavailable Reason for Visit * Reason Onset Date Comments Social Concerns 09/25/2024 Encounter Details Date Type Department Care Team (Late st Contact Info) Description 09/25/2024 Patient Outreach [facility] [address] [place] [address] Navigator, [place] Social Concerns Social History Tobacco Use Types Packs/Day Years Used Date Smoking Tobacco: Former Cigarettes 0.5 5.6 S tarted: 04/18/2016 Smokeless Tobacco: Never Alcohol Use Standard Drinks/Week Comments Not Currently 0 (1 standard drink = 0.6 oz pur e alcohol) quit 2023 [facility] Utilities Answer Date Recorded In the [...] any clubs o r organizations such as anabaptist groups, unions, fraternal or athletic groups, or [...] medical care, and heating? Somewhat hard 09/25/2024 [facility] of Occupat ional Health - [...] any time in the past 12 m [facility], were you homeless or living in a long term (including now)? No 09/25/2024 Sexually Active Control Partners Comments Yes Male Comments No Sex and Gender Information Value Date Recorded Sex Assigned at Female 06/20/2024 8:39 AM CDT Legal Sex Female 9:04 AM CDT Gender Identity Female 06/20/2024 8:39 AM CDT Sexual Orientation Bisexual 06/20/2024 8: 39 AM CDT documented as of this encounter Functional Status * Audit-C Score [...] No 09/25/2024 11:46 AM Blaine Rosenthal * Question Answer Date of Assessment Author Q1: How often do you have a drink containing alcohol? Monthly or less 09/25/2024 11:46 AM GAGGERMAN Afshin Hopson Q2: How many drinks containing alcohol do you have on a typical day when you are drinking? 1 or 2 09/25/2024 11:46 AM GAGGERMAN Hayde Hopson Q3: How often do you have si x or more drinks on one occasion? Never 09/25/2024 11:46 AM GAGGERMAN Hayde Hopson documented as of this encounter Progress Notes * aHyde Hopson - 09/25/2024 11:55 AM CST Contacted the patient to Assess social determinants of health needs, Reached patient. Patient has SDOH needs. Social Determinants of Health with Concerns Tobacco Use: Medium Risk (09/11/2024) Patient History Smoking Tobacco Use: Former Smokeless Tobacco Use: Never Passive Exposure: Not on file Financial Resource Needs: Medium Risk (09/25/2024) Overall Financial Resource Strain (CARDIA) Difficulty of Paying Living Expenses: Somewhat hard Food Insecurity Needs: Food Insecurity Present (09/25/2024) Hunger Vital Sign Worried About Running Out of Food in the Last Year: Sometimes true Ran Out of Food in the Last Year: Sometimes true Physical Activity: Inactive (09/25/2024) Exercise Vital Sign Days of Exercise per Week: 0 days Minutes of Exercise per Session: 0 min Stress: Stress Concern Present (09/25/2024) [place] of Occupational Health - Occupational Stress Questionnaire Feeling of Stress : Very much Social Integration: Socially Isolated (09/25/2024) Social Connection and Isolation Panel [NHANES] Frequency of Communication with Friends and Family: More than three times a week Frequency of Social Gatherings with Friends and Family: More than three times a week Attends Jew Services: Never Active Member of Clubs or Organizations: No Attends Club or Organization Meetings: Never Marital Status: Never Depression: Not on file No further follow up needed at this time. ERMAN documented in this encounter Plan of Treatment Upcoming Encounters Date Type Department Care Team (Late st Contact Info) Description 11/15/2024 1:00 PM GAGGERMAN Lab [facility] Laboratory Services [address] [place] [address] Markus Finley MD [address] [place] [address] 11/15/2024 2:00 PM GAGGERMAN Appointment [facility] MRI [address] [place] [address] Markus Finley MD [address] [place] [address] Discharge Disposition: Discharged to home or Selfcare documented as of this encounter Interventions Community Resource Recommendations Community Resource Services Recommended Domains Addressed Status Status Reason/Outcome Date/Time HIS Service Station Food Insecurity Needs Food Insecurity Recommended 09/25/2024 11:54 AM GAGGERMAN [place] [facility] Food Insecurity Needs Food Insecurity Recommended 09/25/2024 11:54 AM GAGGERMAN [facility] Financial Resource Needs, Food Insecurity Needs Financial Resource Strain, Food Insecurity Recommended 09/25/2024 11:54 AM GAGGERMAN [facility] - Mental Health Services Mental Health Evaluation Stress Recommended 09/25/2024 11:54 AM GAGGERMAN [place] [facility] Division of Mental Health - Inpatient Services Mental Health Evaluation, Mental Health Services Stress Recommended 09/25/2024 11:54 AM GAGGERMAN [facility] HealthCare - [facility] Home Care Services - Psychiatric Care Medications for Mental Health, Mental Health Education, Mental Health Evaluation, Mental Health Services Stress Recommended 09/25/2024 11:54 AM GAGGERMAN documented as of this encounter Visit Diagnoses Not on filedocumented in this encounter Care Teams Certified Procedural Coder Relationship Specialty Start Date End Date Pritesh Chu MD [address] [place] [address] PCP - General Family Medicine 04/18/24 Markus Finley MD [address] [place] [address] Consulting Physician Medical Oncology 04/18/24 Zander Cha MD [address] [address] Consulting Physician Colon and Rectal Surgery 08/24/24 documented as of this encounter
--- OUTSIDE RECORDS SUMMARY | 2024-10-26 08:02 | XMS_ITS | Encounter Summary ---
Author Organization [facility] Address [address] [place] [address] Phone Care Team Providers Care Leather Staker Name Role Phone Pritesh Chu MD Primary Care Provider [phone] Markus Finley MD Unavailable [phone] Zander Cha MD Unavailable Encounter Details Date Type Department Care Team (Late st Contact Info) Description 08/29/2024 Telephone [facility] On[facility] Services [address] [place] [id number] Markus Finley MD [address] [place] [address] Social History Tobacco Use Types Packs/Day Years Used Date Smoking Tobacco: Former Cigarettes 0.5 5.6 S tarted: 04/18/2016 Smokeless Tobacco: Never Alcohol Use Standard Drinks/Week Comments Not Currently 0 (1 standard drink = 0.6 oz pur e alcohol) quit 2023 [facility] Utilities Answer Date Recorded In the past 12 months has [employer], gas, oil, or water company threatened to [...] declined 08/01/2024 How often do you attend rastafari or taoism serv ices? Patient declined 08/01/2024 Do you belong to any clubs o r organizations such as rastafari groups, unions, fraternal or athletic groups, or [...] Patient declined 08/01/2024 [facility] Occupat ional [facility] - Occupational Stress Questionnaire Answer Date [...] living in a long term (including now)? Patient declined 08/01/2024 Sexually Active Control Partners Comments Yes Male Comments No Sex and Gender Information Value Date Recorded Sex Assigned at Female 06/20/2024 8:39 AM CDT Legal Sex Female 9:04 AM CDT Gender Identity Female 06/20/2024 8:39 AM CDT Sexual Orientation Bisexual 06/20/2024 8: 39 AM CDT documented as of this encounter Miscellaneous Notes * Telephone Encounter - Carmina Porras RN - 08/29/2024 2:09 PM CDT Pt in office today to discuss potassium refill and insurance not authorizing refill stating too soon. This RN spoke with [facility] pharmacist and informed Dr. Finley had increased frequency earlier this month and that is reasoning why refill is needed sooner. Pharmacist stated she pushed override through and pt should be able to pickle water pump operator rx tomorrow. Pt updated on the above and informed to call office if she has any issues. Pt verbalized understanding. documented in this encounter Plan of Treatment Upcoming Encounters Date Type Department Care Team (Late st Contact Info) Description 11/15/2024 1:00 PM FREIGHT TRUCKER Lab [facility] Laboratory Services [address] [place] [address] Markus Finley MD [address] [place] [address] 11/15/2024 2:00 PM FREIGHT TRUCKER Appointment [facility] MRI [address] [place] [address] Markus Finley MD [address] [place] [address] Discharge Disposition: Discharged to home or Selfcare documented as of this encounter Visit Diagnoses Not on filedocumented in this encounter Care Teams Leather Staker Relationship Specialty Start Date End Date Pritesh Chu MD [address] [address] PCP - General Family Medicine 04/18/24 Markus Finley MD [address] [place] [address] Consulting Physician Medical Oncology 04/18/24 Zander Cha MD [address] [address] Consulting Physician Colon and Rectal Surgery 08/24/24 documented as of this encounter
--- OUTSIDE RECORDS SUMMARY | 2024-10-26 08:02 | XMS_ITS | Encounter Summary ---
Author Organization [employer] Care Team Providers Care Freezer Operator Name Role Phone Pritesh Chu MD Primary Care Provider [phone] Markus Finley MD Unavailable [phone] Zander Cha MD Unavailable Encounter Details Date Type Department Care Team (Latest Contact Info) Description 09/11/2024 Travel Social History Tobacco Use Types Packs/Day Years Used Date Smoking Tobacco: Former Cigarettes 0.5 5.6 S tarted: 04/18/2016 Smokeless Tobacco: Never Alcohol Use Standard Drinks/Week Comments Not Currently 0 (1 standard drink = 0.6 oz pur e alcohol) quit 2023 [facility] Utilities Answer Date Recorded In the past 12 months has [employer], gas, oil, or water [employer] threatened to shut off services in your home? Patient declined 08/01/2024 Social Connection and Isolation Panel [NHANES] A nswer Date Recorded In a typical week, how many times do you talk on the phone with family, friends, or neighbors? Patient declined 08/01/2024 How often do you get togethe r with friends or relatives? Patient declined 08/01/2024 How often do you attend oriental orthodox or moravian serv ices? Patient declined 08/01/2024 Do you belong to any clubs o r organizations such as oriental orthodox groups, unions, fraternal or athletic groups, or [...] medical care, and heating? Patient declined 08/01/2024 [facility] - Occupational Stress Questionnaire Answer Date [...] any time in the past 12 m [facility], were you homeless or living [...] st Contact Info) Description 11/15/2024 1:00 PM DIRECTOR EPIDEMIOLOGY Lab [facility] Services [address] [place] [address] Markus Finley MD [address] [place] [address] 11/15/2024 2:00 PM DIRECTOR EPIDEMIOLOGY Appointment [facility] MRI [address] [place] [address] Markus Finley MD [address] [place] [address] Discharge Disposition: Discharged to home or Selfcare documented as of this encounter Visit Diagnoses Not on filedocumented in this encounter Care Teams Freezer Operator Relationship Specialty Start Date End Date Pritesh Chu MD [address] [place], [place] [id number] PCP - General Family Medicine 04/18/24 Markus Finley MD [address] [place] [address] Consulting Physician Medical Oncology 04/18/24 Zander Cha MD [address] [place] [address] Consulting Physician Colon and Rectal Surgery 08/24/24 documented as of this encounter
--- OUTSIDE RECORDS SUMMARY | 2024-10-26 08:02 | XMS_ITS | Encounter Summary ---
Author Organization [facility] Care Team Providers Care Certified Welding Inspector Name Role Phone Pritesh Chu MD Primary Care Provider [phone] Markus Finley MD Unavailable [phone] Zander Cha MD Unavailable Encounter Details Date Type Department Care Team (Latest Contact Info) Description 10/02/2024 Travel Social History Tobacco Use Types Packs/Day Years Used Date Smoking Tobacco: Former Cigarettes 0.5 5.6 S tarted: 04/18/2016 Smokeless Tobacco: Never Alcohol Use Standard Drinks/Week Comments Not Currently 0 (1 standard drink = 0.6 oz pur e alcohol) quit 2023 [facility] Utilities Answer Date Recorded In the past 12 months has [employer], gas, oil, or water [employer] threatened to shut off services in your [...] week 09/25/2024 How often do you attend [facility] or sabianism services? Never 09/25/2024 Do you belong to [...] medical care, and heating? Somewhat hard 09/25/2024 [facility] of Occupat ional Health - Occupational Stress [...] any time in the past 12 m [facility], were you homeless or living in a alf (including now)? No 09/25/2024 Sexually Active Control [...] st Contact Info) Description 11/15/2024 1:00 PM MERCANTILE REPORTER [facility] [address] [place] [address] Markus Finley MD [address] [place] [address] 11/15/2024 2:00 PM MERCANTILE REPORTER [facility] [address] [place] [address] Markus Finley MD [address] [place] [address] Discharge Disposition: Discharged to home or Selfcare documented as of this encounter Visit Diagnoses Not on filedocumented in this encounter Care Teams Certified Welding Inspector Relationship Specialty Start Date End Date Pritesh Chu MD [address] [place], [place] [id number] PCP - General Family Medicine 04/18/24 Markus Finley MD [address] [place] [address] Consulting Physician Medical Oncology 04/18/24 Zander Cha MD [address] [place] [address] Consulting Physician Colon and Rectal Surgery 08/24/24 documented as of this encounter
--- OUTSIDE RECORDS SUMMARY | 2024-10-26 08:02 | XMS_ITS ---
Author Organization [facility] Address [address] [place] [address] Phone Care Team Providers Care Frame Assembler Name Role Phone Pritesh Chu MD Primary Care Provider [phone] Markus Finley MD Unavailable [phone] Zander Cha MD Unavailable Active Problems Problem Noted Date Diagnosed Date Subcutaneous nodule of left lower extremity 02/2024 Acute renal failure, unspecified acute renal samreen lure type 08/01/2024 Metabolic acidosis, increased anion gap 08/01/20 24 Hypothyroidism 07/30/2024 Pericardial effusion 07/25/2024 Dehydration 07/23/2024 Functional diarrhea 07/03/2024 Hypotension due to drugs 07/03/2024 Diarrhea due to drug 07/03/2024 Immunotherapy 07/03/2024 Dizziness 07/03/2024 Hypokalemia due to excessive gastrointestinal loss of potassium 06/27/2024 GERD (gastroesophageal reflux disease) Ringworm 05/08/2024 Metastatic melanoma 04/18/2024 Morbid obesity Non-alcoholic fatty liver disease Melanoma Depression Current Treatment and Therapy Plans No current plan information found. Past Treatment and Therapy Plans ONCOLOGY TREATMENT Plan Name Start Date Discontinue Date Treatment Medications Discontinue Reason Plan Provider Cycles [facility]: Nivolumab (1 mg/kg) + Ipilimumab (3 mg/kg) followed by Nivolumab (480 mg) - Cutaneous Melanoma 4 10/02/2024 ipilimumab (YERVOY) IVPBnivolumab (OPDIVO) IVPB Progression Markus Finley MD 4 of 12 cycles started Resolved Problems Problem Noted Date Diagnosed Date Resolved Date ALEXX (acute kidney injury) 07/25/2024 Dehydration 07/25/2024 07/30/2024 Fever of unknown origin 06/27/2024 08/02/2024 Acute kidney injury 06/27/2024 06/30/20 Diarrhea 06/27/2024 06/30/2024 Abnormal TSH 06/12/2024 08/06/2024 Iron deficiency anemia due t o chronic blood loss 04/18/2024 08/06/2024 Miscarriage 12/08/2022 08/06/2024 Miscarriage 07/09/2022 08/06/2024
--- OUTSIDE RECORDS SUMMARY | 2024-10-26 08:02 | XMS_ITS | Encounter Summary ---
Author Organization [email or web address] Care Team Providers Care Senior Licensing Manager Name Role Phone Pritesh Chu MD Primary Care Provider [phone] Markus Finley MD Unavailable [phone] Zander Cha MD Unavailable Encounter Details Date Type Department Care Team (Latest Contact Info) Description 09/25/2024 Travel Social History Tobacco Use Types Packs/Day Years Used Date Smoking Tobacco: Former Cigarettes 0.5 5.6 S tarted: 04/18/2016 Smokeless Tobacco: Never Alcohol Use Standard Drinks/Week Comments Not Currently 0 (1 standard drink = 0.6 oz pur e alcohol) quit 2023 [facility] Utilities Answer Date Recorded In the past 12 months has [employer], gas, oil, or water [employer] threatened to shut off services in your [...] week 09/25/2024 How often do you attend [facility] or confucianist services? Never 09/25/2024 Do you belong to [...] medical care, and heating? Somewhat hard 09/25/2024 [facility] of Occupat ional Health - Occupational Stress [...] were you homeless or living in a prison (including now)? No 09/25/2024 Sexually Active Control [...] Author No 09/25/2024 11:46 AM Blaine Rosenthal Within the last year, have you been raped or forced to have any kind of sexual activity by your partner or ex-partner? Answer Date of Assessment Author No 09/25/2024 11:46 AM Blaine Rosenthal Within the [...] on one occasion? Never 09/25/2024 11:46 AM DEMURRAGE WORKER Hayde Hopson documented as of this encounter Plan of Treatment Upcoming Encounters Date Type Department Care Team (Late st Contact Info) Description 11/15/2024 1:00 PM DEMURRAGE WORKER [facility] 1 [place] [id number] Markus Finley MD [address] [place] [address] 11/15/2024 2:00 PM DEMURRAGE WORKER [facility] 1 [place] [address] Markus Finley MD [address] [place] [address] Discharge Disposition: Discharged to home or Selfcare documented as of this encounter Visit Diagnoses Not on filedocumented in this encounter Care Teams Senior Licensing Manager Relationship Specialty Start Date End Date Pritesh Chu MD [address] [place] [address] PCP - General Family Medicine 04/18/24 Markus Finley MD [address] [place] [address] Consulting Physician Medical Oncology 04/18/24 Zander Cha MD [address] [address] Consulting Physician Colon and Rectal Surgery 08/24/24 documented as of this encounter
--- OUTSIDE RECORDS SUMMARY | 2024-10-26 08:02 | XMS_ITS | Encounter Summary ---
Author Organization [facility] Address [address] [place] [address] Phone Care Team Providers Care Matte Cutter Name Role Phone Pritesh Chu MD Primary Care Provider [phone] Markus Finley MD Unavailable [phone] Zander Cha MD Unavailable Encounter Details Date Type Department Care Team (Late st Contact Info) Description 10/08/2024 Telephone [facility] Oncology Services [address] [place] [phone] Markus Finley MD [address] [place] [address] Social History Tobacco Use Types Packs/Day Years Used Date Smoking Tobacco: Former Cigarettes 0.5 5.6 S tarted: 04/18/2016 Smokeless Tobacco: Never Alcohol Use Standard Drinks/Week Comments Not Currently 0 (1 standard drink = 0.6 oz pur e alcohol) quit 2023 [facility] Utilities Answer Date Recorded In the past 12 months has [employer], gas, oil, or water company threatened to [...] often do you attend chur ch or cheondoism services? Never 09/25/2024 Do you belong to any clubs o r organizations such as quaker groups, unions, fraternal or athletic groups, or [...] medical care, and heating? Somewhat hard 09/25/2024 [facility] of Occupat ional Health - Occupational [...] any time in the past 12 m [facility], were you homeless or living in a usp (including now)? No 09/25/2024 Sexually Active Control Partners Comments Yes Male Comments No Sex and Gender Information Value Date Recorded Sex Assigned at Female 06/20/2024 8:39 AM CDT Legal Sex Female 9:04 AM CDT Gender Identity Female 06/20/2024 8:39 AM CDT Sexual Orientation Bisexual 06/20/2024 8: 39 AM CDT documented as of this encounter Miscellaneous Notes * Telephone Encounter - Liliana Cabrera RN - 10/11/2024 2:35 PM CST [facility] has her prescriptions ready; Chris needs to call and complete 2 new patient assessments in order to set up shipment. Called pt to make aware and pharmacy number provided. Pt knows to call with further issues. L GRINDER * Addendum Note - Carmina Porras RN - 10/10/2024 10:06 AM CSTAddended by: CARMINA PORRAS on: 10/10/2024 10:06 AM Modules accepted: Orders L GRINDER * Telephone Encounter - Carmina Porras RN - 10/10/2024 10:02 AM METAL GRINDER Covermymeds fax received. Spoke with Liliana Rodriguez RN who stated auth fax was received from [employer] yesterday. [facility], to discuss. Per Mirian auth is approved for medication to be filled through [facility], . New auth would be needed for [facility] to refill. New rx routed to [facility]. L GRINDER * Addendum Note - Liliana Cabrera RN - 10/09/2024 5:00 PM CSTAddended by: LILIANA CABRERA on: 10/09/2024 05:00 PM Modules accepted: Orders L GRINDER * Telephone Encounter - Liliana Cabrera RN - 10/09/2024 4:54 PM CST Fax received for [facility] being OON for patient. Sending Braftovi/Mektovi to [facility] perfax recommendation from [facility]. RN will check status of these tomorrow, Tuesday. L GRINDER * Telephone Encounter - Liliana Cabrera RN - 10/08/2024 2:58 PM CST Okay for KlorCon once daily per MD. L GRINDER * Telephone Encounter - Liliana Cabrera RN - 10/08/2024 10:40 AM CST Pt called to clarify sig for KlorCon at home. Note from last follow-up states to continue with 2 packets daily, but both her and her SO heard during appt that it can be decreased to once daily. Please verify correct frequency. Also, PA was approved for Braftovi/Mektovi over week. Pt made aware and PA info faxed to [facility] for review. Instructed pt to call [facility] if by early afternoon if not heard from them for shipment. Pt agreeable. L GRINDER documented in this encounter Plan of Treatment Upcoming Encounters Date Type Department Care Team (Late st Contact Info) Description 11/15/2024 1:00 PM METAL GRINDER Lab [facility] Laboratory Services 1 [facility] [address] Markus Finley MD [address] [place] [address] 11/15/2024 2:00 PM METAL GRINDER [facility]ment [facility] 1 [facility] [place] [address] Markus Finley MD [address] [place] [address] Discharge Disposition: Discharged to home or Selfcare documented as of this encounter Visit Diagnoses Diagnosis Metastatic melanoma (HCC)- Primary Melanoma of skin, site unspecified documented in this encounter Care Teams Matte Cutter Relationship Specialty Start Date End Date Pritesh Chu MD [address] [address] PCP - General Family Medicine 04/18/24 Markus Finley MD [address] [place] [address] Consulting Physician Medical Oncology 04/18/24 Zander Cha MD [address] [address] Consulting Physician Colon and Rectal Surgery 08/24/24 documented as of this encounter
--- OUTSIDE RECORDS SUMMARY | 2024-10-26 08:02 | XMS_ITS | Encounter Summary ---
Author Organization [facility] Address [address] [facility] [place] [address] Phone Care Team Providers Care Instructor Decorating Name Role Phone Pritesh Chu MD Primary Care Provider Markus Finley MD Unavailable [phone] Zander Cha MD Unavailable Reason for Visit * Episode Based Medications (Routine) - Closed Specialty Diagnoses / Procedures Referred By Contross t Referred To Contact Diagnoses Metastatic melanoma (HCC) Markus Finley MD [address] [place] [address] Phone: tel: fax: [facility] Oncology Services [address] [place] [address] Phone: tel: fax: Referral ID Status Reason Start Date Expiration Date Visits Re quested Visits Authorized [id number] Closed 04/19/2024 1 30 Encounter Details Date Type Department Care Team (Late st Contact Info) Description 09/07/2024 11:30 AM CDT Clinical Support [facility] Oncology Services [address] [place] [phone] Markus Finley MD [address] [place] [address] Metastatic melanoma (HCC) (Primary Dx) Discharge Disposition: Discharged to home or Selfcare Social History Tobacco Use Types Packs/Day Years Used Date Smoking Tobacco: Former Cigarettes 0.5 5.6 S tarted: 04/18/2016 Smokeless Tobacco: Never Alcohol Use Standard Drinks/Week Comments Not Currently 0 (1 standard drink = 0.6 oz pur e alcohol) quit 2023 [facility] Utilities Answer Date Recorded In the [...] How often do you attend jain or christian serv ices? Patient declined 08/01/2024 Do you [...] medical care, and heating? Patient declined 08/01/2024 [place] of Occupat ional Health - Occupational Stress [...] were you homeless or living in a fdc (including now)? Patient declined 08/01/2024 Sexually Active [...] Sign Reading Time Taken Comments Blood Pressure 116/83 09/07/2024 11:43 AM CDT Pulse 60 09/07/2024 11:43 AM CDT Temperature 36.6 ??C (97.8 ??F) 09/07/2024 11:43 AM C DT Respiratory Rate 18 09/07/2024 11:43 AM CDT Oxygen Saturation 99% 09/07/2024 11:43 AM CDT Inhaled Oxygen Concentration - - Weight 111.4 kg (245 lb 8 oz) 09/07/2024 11:43 A M CDT Height - - Body Mass Index 39.62 09/04/2024 11:07 AM CDT documented in this encounter Miscellaneous Notes * Interdisciplinary - Melba Pitts RN - 09/07/2024 11:30 AM CDT Patient to treatment bay with significant other. VS obtained. Pt said she forgot to mention on the phone that she also has noticed over the last few days if she gets warm at all it feels like she is going down or like she will pass out. Confirmed predisone dose with patient 80 mg in morning and 20 mg in evening and this has been since 09/04 when she ran out. Also, confirmed Levothyroxine dose patient is on. VS obtained. Pt port accessed per company policy, flushed without difficulty. Site secured with dressing. Labs drawn per MD orders. Fluid hydration given without incident. Labs resulted. No new medication orders. At completion of infusion, site flushed with NS and heparin and port de-accessed. Site secured with bandaid. Per MD, pt should decrease predisone to 60 mg in morning and 20 mgin evening and should continue this until FU on Tuesday and then will reassess on Tuesday. Pt verbalized understanding to plan. Pt left in safe disposition. documented in this encounter Plan of Treatment Upcoming Encounters Date Type Department Care Team (Late st Contact Info) Description 11/15/2024 1:00 PM PROGRAM CLERK Lab [facility] Laboratory Services 1 [place] [address] Markus Finley MD [address] [place] [address] 11/15/2024 2:00 PM PROGRAM CLERK Appointment [facility] MRI 1 [facility] [place] [phone] Markus Finley MD [address] [place] [address] Discharge Disposition: Discharged to home or Selfcare documented as of this encounter Procedures Procedure Name Priority Date/Time Associated Diagnosis Comments CBC WITH AUTO DIFFERENTIAL STAT 09/07/2024 11:55 AM CDT Metastatic melanoma (HCC) THYROID STIMULATING HORMONE (TSH) STAT 09/07/2024 11:55 AM CDT Metastatic melanoma (HCC) CMP (COMPREHENSIVE METABOLIC PANEL) STAT 09/07/2024 11:55 AM CDT Metastatic melanoma (HCC) COMPLETE BLOOD COUNT (CBC) WITH DIFF STAT 09/07/2024 11:55 AM CDT Metastatic melanoma (HCC) documented in this encounter Results * (ABNORMAL) CBC WITH AUTO DIFFERENTIAL (09/07/2024 11:55 AM CDT) WBC 8.95 4.00 - 12.00 10(3)/mcL 09/07/2024 12:23 PM CDT [facility] RBC 4.18 3.80 - 5.30 10(6)/mcL 09/07/2024 12:23 PM CDT [facility] HEMOGLOBIN (HGB) 12.7 12.0 - 15.8 g/dL 09/07/2024 12:23 PM CDT [facility] HEMATOCRIT (HCT) 39.1 36.0 - 47.0 % 09/07/2024 12:23 PM CDT [facility] MCV 93.5 82.0 - 96.0 fL 09/07/2024 12:23 PM CDT [facility] MCH 30.4 26.0 - 34.0 pg 09/07/2024 12:23 PM CDT [facility] MCHC 32.5 31.0 - 36.0 g/dL 09/07/2024 12:23 PM CDT [facility] PLATELET COUNT 178 140 - 440 10(3)/[facility] 09/07/2024 12:23 PM CDT [facility] RDW 14.8 11.8 - 15.5 % 09/07/2024 12:23 PM CDT [facility] MPV 9.8 9.7 - 12.4 fL 09/07/2024 12:23 PM CDT [facility] NEUTROPHILS 90.3(H) 47.0 - 73.0 % 09/07/2024 12:23 PM CDT [facility] LYMPHOCYTES 4.7(L) 18.0 - 42.0 % 09/07/2024 12:23 PM CDT [facility] MONOCYTES 4.8 4.0 - 12.0 % 09/07/2024 12:23 PM CDT [facility] EOSINOPHILS 0.1 0.0 - 5.0 % 09/07/2024 12:23 PM CDT [facility] BASOPHILS 0.1 0.0 - 1.0 % 09/07/2024 12:23 PM CDT [facility] ABSOLUTE NEUTROPHILS 8.08(H) 1.60 - 7.70 10(3)/[facility] 09/07/2024 12:23 PM CDT [facility] ABSOLUTE LYMPHOCYTES 0.42(L) 1.30 - 3.20 10(3)/[facility] 09/07/2024 12:23 PM CDT [facility] ABSOLUTE MONOCYTES 0.43 0.20 - 1.00 10(3)/[facility] 09/07/2024 12:23 PM CDT [facility] ABSOLUTE EOSINOPHIL 0.01 0.00 - 0.40 10(3)/[facility] 09/07/2024 12:23 PM CDT [facility] ABSOLUTE BASOPHILS 0.01 0.00 - 0.10 10(3)/[facility] 09/07/2024 12:23 PM CDT [facility] NRBC PER 100 WBC 0 09/07/20 12:23 PM CDT [facility] RESULTS ARE CONSISTENT WITH PERIPHERAL SMEAR REVIEW Yes 09/07/2024 12:23 PM CDT [facility] RBC MORPHOLOGY CONSISTENT WITH INDICES Yes 09/07/2024 12:23 PM CDT [facility] Blood Sub-Q Port Venou s Access Device (Medi-Port, Implanted Port) / Unknown 09/07/2024 11:55 AM CDT 09/07/2024 11:55 AM CDT Markus Finley MD HEMATOLOGY ORDERABLES Fi nal Result Performing Organization Address City/[facility]/ZIP Co de Phone Number [facility] [address] [place] [address] * THYROID STIMULATING HORMONE (TSH) (09/07/2024 11:55 AM CDT) TSH 1.777 0.300 - 5.000 mIU/L 09/07/2024 12:42 PM CDT [facility] Blood Sub-Q Port Venou s Access Device (Medi-Port, Implanted Port) / Unknown 09/07/2024 11:55 AM CDT 09/07/2024 11:55 AM CDT Markus Finley MD CHEMISTRY ORDERABLES Fin al Result Performing Organization Address City/[facility]/ZIP Co de Phone Number [facility] [address] [place] [address] * (ABNORMAL) CMP (COMPREHENSIVE METABOLIC PANEL) (09/07/2024 11:55 AM CDT) SODIUM 139 136 - 145 mmol/L 09/07/2024 12:24 PM CDT [facility] POTASSIUM 4.7 3.5 - 5.1 mmol/L 09/07/2024 12:24 PM CDT [facility] CHLORIDE 105 98 - 107 mmol/L 09/07/2024 12:24 PM CDT [facility] CO2, VENOUS 26 22 - 30 mmol/L 09/07/2024 12:24 PM CDT [facility] ANION GAP 12.7 <18.0 mmol/L 09/07/2024 12:24 PM CDT [facility] GLUCOSE 102(H) 70 - 99 mg/dL 09/07/2024 12:24 PM CDT [facility] BUN 20(H) 5 - 18 mg/dL 09/07/2024 12:24 PM CDT [facility] CREATININE, BLOOD 0.82 0.60 - 1.00 mg/dL 09/07/2024 12:24 PM CDT [facility] BUN/CREATININE RATIO 24(H) 12 - 20 ratio 09/07/2024 12:24 PM CDT [facility] TOTAL PROTEIN 6.1(L) 6.3 - 8.2 g/dL 09/07/2024 12:24 PM CDT [facility] ALBUMIN 3.9 3.5 - 5.0 g/dL 09/07/2024 12:24 PM CDT [facility] A/G RATIO 1.8 1.0 - 2.2 09/07/2024 12:24 PM CDT [facility] CALCIUM 9.2 8.7 - 10.5 mg/dL 09/07/2024 12:24 PM CDT [facility] T BILI 0.6 0.2 - 1.2 mg/dL 09/07/2024 12:24 PM CDT [facility] SGOT (AST) 12 5 - 34 U/L 09/07/2024 12:24 PM CDT [facility] SGPT (ALT) 53 0 - 55 U/L 09/07/2024 12:24 PM CDT [facility] ALKALINE PHOSPHATASE 52 40 - 150 U/L 09/07/2024 12:24 PM CDT [facility] IS THE PATIENT REQUIRED TO BE FASTING? No 09/07/2024 12:24 PM CDT [facility] GFR, ESTIMATED >60 >=60 09/07/2024 12:24 PM CDT [facility] Comment: Creatinine Clearance is the preferred criteria for selecting drug dose adjustments in renally impaired patients. ??The GFR is provided as additional pertinent clinical information. GFR is reported in mL/min/1.73 sq m. Calculation based on the Chronic Kidney Disease Epidemiology Collaboration (CKD- EPI) equation refit without adjustment for race. GFR, EST. >60 >=60 024 12:24 PM CDT [facility] GFR, EST. NONAFRICAN >60 >=60 09/07/2024 12:24 PM CDT [facility] Blood Sub-Q Port Venou s Access Device (Medi-Port, Implanted Port) / Unknown 09/07/2024 11:55 AM CDT 09/07/2024 11:55 AM CDT Markus Finley MD CHEMISTRY ORDERABLES Fin al Result [facility] [address] [place] [address] documented in this encounter Visit Diagnoses Diagnosis Metastatic melanoma (HCC)- Primary Melanoma of skin, site unspecified documented in this encounter Administered Medications Inactive Administered Medications - up to 3 most recent administrations Medication Order MAR Action Action Date Dose Rate Site 0.9 % sodium chloride solution at 999 mL/hr, Intravenous, ONCE, 1 dose, On Tue09/07/24 at 1200Indications:Metastatic melanoma (HCC) New Bag 09/07/2024 11:56 AM CDT 1,000 mL 999 mL/hr Heparin Na (Pork) Lock Flsh PF SOLN 50 Units 50 Units, Intravenous, ONCE, 1 dose, On Tue09/07/24 at 1600Indications:Metastatic melanoma (HCC) Given 09/07/2024 1:01 PM CDT 50 Units documented in this encounter Care Teams Instructor Decorating Relationship Specialty Start Date End Date Pritesh Chu MD [address] [place] [address] PCP - General Family Medicine 04/18/24 Markus Finley MD [address] [place] [address] Consulting Physician Medical Oncology 04/18/24 Zander Cha MD [address] [address] Consulting Physician Colon and Rectal Surgery 08/24/24 documented as of this encounter
--- OUTSIDE RECORDS SUMMARY | 2024-10-26 08:02 | XMS_ITS | Encounter Summary ---
Author Organization [facility] Address [address] [facility] [place] [address] Phone Care Team Providers Care Corporate Traffic Manager Name Role Phone Pritesh Chu MD Primary Care Provider [phone] Markus Finley MD Unavailable [phone] Zander Cha MD Unavailable Encounter Details Date Type Department Care Team (Late st Contact Info) Description 10/05/2024 Transcribe Orders [facility] [address] [place], [place] [id number] Markus Finley MD [address] [place] [address] Metastatic melanoma (HCC) (Primary Dx) Social History Tobacco Use Types Packs/Day Years Used Date Smoking Tobacco: Former Cigarettes 0.5 5.6 S tarted: 04/18/2016 Smokeless Tobacco: Never Alcohol Use Standard Drinks/Week Comments Not Currently 0 (1 standard drink = 0.6 oz pur e alcohol) quit 2023 [facility] Utilities Answer Date Recorded In the past 12 months has [employer], gas, oil, or water [employer] threatened to shut off services in your [...] often do you attend chur ch or samaritan services? Never 09/25/2024 Do you belong to any clubs o r organizations such as hoahaoism groups, unions, fraternal or athletic groups, or [...] medical care, and heating? Somewhat hard 09/25/2024 [facility] of Occupat ional Health - Occupational [...] were you homeless or living in a senior living (including now)? No 09/25/2024 Sexually Active Control [...] st Contact Info) Description 11/15/2024 1:00 PM INCOME TAX ANALYST [facility] [address] [place] [address] Markus Finley MD [address] [place] [address] 11/15/2024 2:00 PM INCOME TAX ANALYST [facility] 1 [facility] [place] [address] Markus Finley MD [address] [place] [address] Discharge Disposition: Discharged to home or Selfcare Scheduled Orders Name Type Priority Associated Diagnoses Orde r Schedule UR TEST QUAL Lab Routine Metastatic melanoma (HCC) Expected: 10/05/2024, Expires: 10/05/2025 documented as of this encounter Visit Diagnoses Diagnosis Metastatic melanoma (HCC)- Primary Melanoma of skin, site unspecified documented in this encounter Care Teams Corporate Traffic Manager Relationship Specialty Start Date End Date Pritesh Chu MD [address] [place] [address] PCP - General Family Medicine 04/18/24 Markus Finley MD [address] [place] [address] Consulting Physician Medical Oncology 04/18/24 Zander Cha MD [address] [address] Consulting Physician Colon and Rectal Surgery 08/24/24 documented as of this encounter
--- OUTSIDE RECORDS SUMMARY | 2024-10-26 08:02 | XMS_ITS | Encounter Summary ---
Author Organization [facility] Address [address] [facility] [place] [address] Phone Care Team Providers Care Business Planner Name Role Phone Pritesh Chu MD Primary Care Provider [phone] Markus Finley MD Unavailable [phone] Zander Cha MD Unavailable Reason for Visit * Reason Comments Medication Refill Encounter Details Date Type Department Care Team (Late st Contact Info) Description 09/10/2024 [facility]ill [facility] Oncology Services [address] [place] [phone] Markus Finley MD [address] [place] [address] Medication Refill Social History Tobacco Use Types Packs/Day Years Used Date Smoking Tobacco: Former Cigarettes 0.5 5.6 S tarted: 04/18/2016 Smokeless Tobacco: Never Alcohol Use Standard Drinks/Week Comments Not Currently 0 (1 standard drink = 0.6 oz pur e alcohol) quit 2023 [facility] Utilities Answer Date Recorded In the past 12 months has [employer], oil, or listedplaces threatened to shut off services in your home? Patient declined 08/01/2024 Social Connection and Isolation Panel [NHANES] A nswer Date Recorded In a typical week, how many times do you talk on the phone with family, friends, or neighbors? Patient declined 08/01/2024 How often do you get togethe r with friends or relatives? Patient declined 08/01/2024 How often do you attend yazdanism or presybeterian serv ices? Patient declined 08/01/2024 Do you belong to any clubs o r organizations such as yazdanism groups, unions, fraternal or athletic groups, or [...] medical care, and heating? Patient declined 08/01/2024 [facility] - Occupational Stress Questionnaire Answer Date [...] any time in the past 12 m [facility], were you homeless or living in a intermediate (including now)? Patient declined 08/01/2024 Sexually Active [...] Telephone Encounter - Marie Barclay RN - 09/10/2024 11:09 AM BOILING HOUSE OILER Potassium refilled per provider will decrease to 40meq daily as lst Potassium level on 09/07 was 4.7patient next follow up scheduled for 09/11/24. ING HOUSE OILER documented in this encounter Plan of Treatment Upcoming Encounters Date Type Department Care Team (Late st Contact Info) Description 11/15/2024 1:00 PM BOILING HOUSE OILER Lab [facility] Laboratory Services [address] [place] [address] Markus Finley MD [address] [place] [address] 11/15/2024 2:00 PM BOILING HOUSE OILER Appointment [facility] MRI [address] [place] [address] Markus Finley MD [address] [place] [address] Discharge Disposition: Discharged to home or Selfcare documented as of this encounter Visit Diagnoses Not on filedocumented in this encounter Care Teams Business Planner Relationship Specialty Start Date End Date Pritesh Chu MD [address] [place] [address] PCP - General Family Medicine 04/18/24 Markus Finley MD [address] [place] [address] Consulting Physician Medical Oncology 04/18/24 Zander Cha MD [address] [address] Consulting Physician Colon and Rectal Surgery 08/24/24 documented as of this encounter
--- OUTSIDE RECORDS SUMMARY | 2024-10-26 08:03 | XMS_ITS | Encounter Summary ---
Author Organization [facility] Address [address] [facility] [place] [address] Phone Care Team Providers Care Punch Press Feeder Name Role Phone Pritesh Chu MD Primary Care Provider Markus Finley MD Unavailable [phone] Encounter Details Date Type Department Care Team (Late st Contact Info) Description 08/13/2024 11:30 AM CDT Clinical Support [facility] - Cancer Center Oncology Services [address] [place] [id number] Markus Finley MD [address] [place] [address] Acute renal failure, unspecified acute renal failure type (HCC) (Primary Dx); Metastatic melanoma (HCC) Discharge Disposition: Discharged to home or Selfcare Social History Tobacco Use Types Packs/Day Years Used Date Smoking Tobacco: Former Cigarettes 0.5 8.5 S tarted: 04/18/2016 Smokeless Tobacco: Never Alcohol Use Standard Drinks/Week Comments Yes 0 (1 standard drink = 0.6 oz pur e alcohol) [facility] Utilities Answer Date Recorded In the past 12 months has th e electric, gas, oil, or water [employer] threatened to shut off services in your home? Patient declined 08/01/2024 Social Connection and Isolation Panel [NHANES] A nswer Date Recorded In a typical week, how many times do you talk on the phone with family, friends, or neighbors? Patient declined 08/01/2024 How often do you get togethe r with friends or relatives? Patient declined 08/01/2024 How often do you attend gnosticism or yazidi serv ices? Patient declined 08/01/2024 Do you belong to any clubs o r organizations such as gnosticism groups, unions, fraternal or athletic groups, or [...] Patient declined 08/01/2024 [facility] - Occupational Stress Questionnaire Answer [...] any time in the past 12 m [facility], were you homeless or living in a retirement (including now)? Patient declined 08/01/2024 Comments No Sex and Gender Information Value Date Recorded Sex Assigned at Female 06/20/2024 8:39 AM CDT Legal Sex Female 9:04 AM CDT Gender Identity Female 06/20/2024 8:39 AM CDT Sexual Orientation Bisexual 06/20/2024 8: 39 AM CDT documented as of this encounter Last Filed Vital Signs Vital Sign Reading Time Taken Comments Blood Pressure 135/83 08/13/2024 11:28 AM CDT Pulse 83 08/13/2024 11:28 AM CDT Temperature 36.7 ??C (98 ??F) 08/13/2024 11:28 AM CDT Respiratory Rate 18 08/13/2024 11:28 AM CDT Oxygen Saturation 96% 08/13/2024 11:28 AM CDT Inhaled Oxygen Concentration - - Weight - - Height - - Body Mass Index - - documented in this encounter Miscellaneous Notes * Interdisciplinary - Tatum Ortega RN - 08/13/2024 11:30 AM CDT Pt ambulated into treatment room in stable condition. Port accessed per protocol. Flushed with easeand blood return noted. Labs drawn per MD orders.Fluids given per MD orders. Port flushed and needle removed. Band aid placed. Pt discharged in stable condition. documented in this encounter Plan of Treatment Upcoming Encounters Date Type Department Care Team (Late st Contact Info) Description 11/15/2024 1:00 PM LEGAL EDITOR [facility] [address] [place] [address] Markus Finley MD [address] [place] [address] 11/15/2024 2:00 PM LEGAL EDITOR [facility] [address] [place] [address] Markus Finley MD [address] [place] [address] Discharge Disposition: Discharged to home or Selfcare documented as of this encounter Procedures Procedure Name Priority Date/Time Associated Diagnosis Comments CMP (COMPREHENSIVE METABOLIC PANEL) STAT 08/13/2024 11:39 AM CDT Metastatic melanoma (HCC) documented in this encounter Results * (ABNORMAL) CMP (COMPREHENSIVE METABOLIC PANEL) (08/13/2024 11:39 AM CDT) SODIUM 132(L) 136 - 145 mmol/L 08/13/2024 12:47 PM CDT [facility] POTASSIUM 3.8 3.5 - 5.1 mmol/L 08/13/2024 12:47 PM CDT [facility] CHLORIDE 99 98 - 107 mmol/L 08/13/2024 12:47 PM CDT [facility] CO2, VENOUS 26 22 - 30 mmol/L 08/13/2024 12:47 PM CDT [facility] ANION GAP 10.8 <18.0 mmol/L 08/13/2024 12:47 PM CDT [facility] GLUCOSE 127(H) 70 - 99 mg/dL 08/13/2024 12:47 PM CDT [facility] BUN 16 5 - 18 mg/dL 08/13/2024 12:47 PM T [facility] CREATININE, BLOOD 0.88 0.60 - 1.00 mg/dL 08/13/2024 12:47 PM T [facility] BUN/CREATININE RATIO 18 12 - 20 ratio 08/13/2024 12:47 PM [facility] TOTAL PROTEIN 6.2(L) 6.3 - 8.2 g/dL 08/13/2024 12:47 PM CDT [facility] ALBUMIN 3.7 3.5 - 5.0 g/dL 08/13/2024 12:47 PM [facility] A/G RATIO 1.5 1.0 - 2.2 08/13/2024 12:47 PM T [facility] CALCIUM 8.9 8.7 - 10.5 mg/dL 08/13/2024 12:47 PM T [facility] T BILI 0.7 0.2 - 1.2 mg/dL 08/13/2024 12:47 PM [facility] SGOT (AST) 17 5 - 34 U/L 08/13/2024 12:47 PM [facility] SGPT (ALT) 62(H) 0 - 55 U/L 08/13/2024 12:47 PM [facility] ALKALINE PHOSPHATASE 75 40 - 150 U/L 08/13/2024 12:47 PM [facility] IS THE PATIENT REQUIRED TO BE FASTING? No 08/13/2024 12:47 PM T [facility] GFR, ESTIMATED >60 >=60 08/13/2024 12:47 PM [facility] Comment: Creatinine Clearance is the preferred criteria for selecting drug dose adjustments in renally impaired patients. ??The GFR is provided as additional pertinent clinical information. GFR is reported in mL/min/1.73 sq m. Calculation based on the Chronic Kidney Disease Epidemiology Collaboration (CKD- EPI) equation refit without adjustment for race. GFR, EST. >60 >=60 024 12:47 PM CDT [facility] GFR, EST. NONAFRICAN >60 >=60 08/13/2024 12:47 PM CDT [facility] Blood Sub-Q Port Venou s Access Device (Medi-Port, Implanted Port) / Unknown 08/13/2024 11:39 AM CDT 08/13/2024 11:39 AM CDT us Markus Finley MD CHEMISTRY ORDERABLES Fin al Result [facility] [address] [place] [address] documented in this encounter Visit Diagnoses Diagnosis Acute renal failure, unspecified acute renal failure type (HCC)- Primary Metastatic melanoma (HCC) Melanoma of skin, site unspecified documented in this encounter Administered Medications Inactive Administered Medications - up to 3 most recent administrations Medication Order MAR Action Action Date Dose Rate Site 0.9 % sodium chloride solution at 999 mL/hr, Intravenous, ONCE, 1 dose, On Tue08/13/24 at 1130, 1 literIndications:Acute renal failure, unspecified acute renal failure type (HCC) New Bag 08/13/2024 11:37 AM CDT 999 mL/hr Heparin Na (Pork) Lock Flsh PF SOLN 30 Units 30 Units, Intravenous, PRN, Starting on Tue08/13/24 at 1127, Until Tue08/13/24 at 1727, Line CareIndications:Acute renal failure, unspecified acute renal failure type (HCC) Given 08/13/2024 11:50 AM CDT 30 Units documented in this encounter Care Teams Punch Press Feeder Relationship Specialty Start Date End Date Pritesh Chu MD [address] [address] PCP - General Family Medicine 04/18/24 Markus Finley MD [address] [place] [address] Consulting Physician Medical Oncology 04/18/24 documented as of this encounter
--- OUTSIDE RECORDS SUMMARY | 2024-10-26 08:03 | XMS_ITS | Encounter Summary ---
Author Organization [facility] Address [address] [place] [address] Phone Care Team Providers Care Spray Painter Name Role Phone Pritesh Chu MD Primary Care Provider [phone] Markus Finley MD Unavailable [phone] Reason for Referral * Radiology Services (Routine) - Closed Specialty Diagnoses / Procedures Referred By Delbert villareal Referred To Contact Radiology Diagnoses Metastatic melanoma (HCC) Procedures PET CT TUMOR IMAGING WHOLE BODY Markus Finley MD [address] [place] [address] Phone: tel: fax: Referral ID Status Reason Start Date Expiration Date Visits Re quested Visits Authorized [id number] Closed 08/06/2024 1 1 Reason for Visit * Radiology Services (Routine) - Closed Specialty Diagnoses / Procedures Referred By Contross villareal Referred To Contact Radiology Diagnoses Metastatic melanoma (HCC) Procedures PET CT TUMOR IMAGING WHOLE BODY Markus Finley MD [address] [place] [address] Phone: tel: fax: Referral ID Status Reason Start Date Expiration Date Visits Re quested Visits Authorized [id number] Closed 08/06/2024 1 1 Encounter Details Date Type Department Care Team (Latest Contact Info) Description 08/15/2024 11:35 AM CDT - 08/15/2024 11:59 PM CDT Hospital Encounter [facility] PET [address] [place] [address] Markus Finley MD [address] [place] [address] Discharge Disposition: Discharged to home or Selfcare Social History Tobacco Use Types Packs/Day Years Used Date Smoking Tobacco: Former Cigarettes 0.5 8.5 S tarted: 04/18/2016 Smokeless Tobacco: Never Alcohol Use Standard Drinks/Week Comments Yes 0 (1 standard drink = 0.6 oz pur e alcohol) [facility] Utilities Answer Date Recorded In the past 12 months has [employer], gas, oil, or water [employer] threatened to shut off services in your home? Patient declined 08/01/2024 Social Connection and Isolation Panel [NHANES] A nswer Date Recorded In a typical week, how many times do you talk on the phone with family, friends, or neighbors? Patient declined 08/01/2024 How often do you get togethe r with friends or relatives? Patient declined 08/01/2024 How often do you attend nondenominational or uatsdin serv ices? Patient declined 08/01/2024 Do you [...] medical care, and heating? Patient declined 08/01/2024 [facility] Occupat ional [facility] - Occupational Stress Questionnaire Answer Date Recorded [...] any time in the past [address] [facility], were you homeless or living in a [place] facility (including now)? Patient declined 08/01/2024 Comments No Sex and Gender Information Value Date Recorded Sex Assigned at Female 06/20/2024 8:39 AM CDT Legal Sex Female 9:04 AM CDT Gender Identity Female 06/20/2024 8:39 AM CDT Sexual Orientation Bisexual 06/20/2024 8: 39 AM CDT documented as of this encounter Medications at Time of Discharge diphenoxylate-atr opine (LOMOTIL) 2.5-0.025 MG TabletIndications :Metastatic melanoma (HCC) Take 1 Tablet by mouth 4 times daily as needed for Diarrhea. 60 Tablet 2 07/12/2024 HYDROcodone-aceta minophen (NORCO) 5-325 MG TabletIndications :Dehydration,ALEXX (acute kidney injury) (HCC) Take 1 Tablet by mouth every 4 hours as needed for Moderate or more severe pain. 20 Tablet 07/24/2024 1-20 MG-MCG(24) Tablet Take 1 Tablet by mouth daily. 02/29/2024 levothyroxine (SYNTHROID) 100 MCG Tablet Take 1 Tablet by mouth every morning (before breakfast) for 90 days. 90 Tablet 07/31/2024 4 omeprazole (PriLOSEC) 40 MG CAPSULE DELAYED RELEASE Take 1 Capsule by mouth daily. 90 Capsule 1 08/14/2024 ondansetron (ZOFRAN-ODT) 4 MG TABLET DISPERSIBLE Take 1 Tablet by mouth every 6 hours as needed for Nausea - 1st line. 10 Tablet 08/03/2024 prochlorperazine (COMPAZINE) 10 MG Tablet Take 1 Tablet by mouth every 6 hours as needed for Nausea - 2nd line. 30 Tablet 1 07/25/2024 senna (SENOKOT) 8.6 MG Tablet Take 1 Tablet by mouth 2 times daily as needed for Constipation - 2nd line. 30 Tablet 08/03/2024 polyethylene glycol (GLYCOLAX, MIRALAX) 17 g PackIndications:C onstipation Take 1 Packet by mouth 2 times daily as needed for Constipation - 1st line. Dissolve in 4-8 oz of liquid. Indications: Constipation 90 Packet 08/03/2024 4 potassium chloride (Klor-Con) 20 MEQ Pack Take 1 Packet by mouth 2 times daily. 60 Packet 3 08/14/2024 4 predniSONE (DELTASONE) 20 MG TabletIndications :Metastatic melanoma (HCC) Take 100mg in AM and 20mg in PM 90 Tablet 08/10/2024 4 predniSONE (DELTASONE) 50 MG Tablet Take 2 Tablets by mouth daily for 30 days. 60 Tablet 08/03/2024 4 sodium chloride 0.9 % Solution 1,000 mL by Intravenous route continuous for 20 days. Patient to get 1000 mL of IV fluids normal saline daily via port. 33498 mL 08/03/2024 4 sulfamethoxazole- trimethoprim DS (BACTRIM DS, SEPTRA DS) 800-160 MG TabletIndications :Metastatic melanoma (HCC) Take 1 Tablet by mouth 2 times daily for 10 doses. 10 Tablet 08/10/2024 4 documented as of this encounter Plan of Treatment Upcoming Encounters Date Type Department Care Team (Late st Contact Info) Description 11/15/2024 1:00 PM MANAGER TRANSPORT Lab [facility] [address] [place] [address] Markus Finley MD [address] [place] [address] 11/15/2024 2:00 PM MANAGER TRANSPORT [facility]ment [facility] [address] [place] [address] Markus Finley MD [address] [place] [address] Discharge Disposition: Discharged to home or Selfcare documented as of this encounter Procedures Procedure Name Priority Date/Time Associated Diagnosis Comments PET CT TUMOR IMAGING WHOLE BODY Routine 08/15/2024 4:30 PM CDT Metastatic melanoma (HCC) documented in this encounter Results * PET CT TUMOR IMAGING WHOLE BODY [...] AM T: ??08/16/2024 11:30 AM Report ID: [id number] Reading Location: ??[id number] Procedure Note Zachariah Carrizales MD - 08/16/2024 [...] Zachariah Carrizales M.D. LB: KRUNAL Report ID: [id number] Reading Location: [place] [address] IMPRESSION: Hypermetabolic left inguinal lymph node measuring [...] SUV of 1.1 compared to 4.1 previously. Markus Finley MD IMG PET Final Re sult documented in this encounter Visit Diagnoses Diagnosis Metastatic melanoma (HCC) Melanoma of skin, site unspecified documented in this encounter Administered Medications Inactive Administered Medications - up to 3 most recent administrations Medication Order MAR Action Action Date Dose Rate Site FDG PER DOSE,UP TO 45 MCI 1 Dose, Intravenous, ONCE, 1 dose, On Tue08/15/24 at 1200 Given 08/15/2024 1:50 PM CDT 1 Dose documented in this encounter Care Teams Spray Painter Relationship Specialty Start Date End Date Pritesh Chu MD [address] [address] PCP - General Family Medicine 04/18/24 Markus Finley MD [address] [place] [address] Consulting Physician Medical Oncology 04/18/24 documented as of this encounter
--- OUTSIDE RECORDS SUMMARY | 2024-10-26 08:03 | XMS_ITS | Encounter Summary ---
Author Organization [facility] Address [address] [place] [address] Phone Care Team Providers Care Chief Lock Tender Operator Name Role Phone Pritesh Cuh MD Primary Care Provider [phone] Markus Finley MD Unavailable [phone] Reason for Visit * Episode Based Medications (Routine) - Closed Specialty Diagnoses / Procedures Referred By Contross t Referred To Contact Diagnoses Metastatic melanoma (HCC) Markus Finley MD [address] [place] [address] Phone: tel: fax: [facility] Oncology Services [address] [place] [address] Phone: tel: fax: Referral ID Status Reason Start Date Expiration Date Visits Re quested Visits Authorized [id number] Closed 04/19/2024 1 30 Encounter Details Date Type Department Care Team (Late st Contact Info) Description 08/22/2024 11:30 AM CDT Clinical Support [facility] Oncology Services [address] [place] [address] Anthony Eckert MD [address] [place], [place] [id number] Markus Finley MD [address] [place] [address] Diarrhea due to drug (Primary Dx); Metastatic melanoma (HCC) Discharge Disposition: Discharged to home or Selfcare Social History Tobacco Use Types Packs/Day Years Used Date Smoking Tobacco: Former Cigarettes 0.5 8.5 S tarted: 04/18/2016 Smokeless Tobacco: Never Alcohol Use Standard Drinks/Week Comments Yes 0 (1 standard drink = 0.6 oz pur e alcohol) [facility] Utilities Answer Date Recorded In the past 12 months has e [employer], gas, oil, or water [employer] threatened to shut off services in your home? Patient declined 08/01/2024 Social Connection and Isolation Panel [NHANES] A nswer Date Recorded In a typical week, how many times do you talk on the phone with family, friends, or neighbors? Patient declined 08/01/2024 How often do you get togethe r with friends or relatives? Patient declined 08/01/2024 How often do you attend catholic or islam serv ices? Patient declined 08/01/2024 Do you belong to any clubs o r organizations such as catholic groups, unions, fraternal or athletic groups, or [...] medical care, and heating? Patient declined 08/01/2024 [facility] of Occupat ional [facility] - Occupational Stress Questionnaire Answer Date [...] time in the past 12 m [facility], were you homeless or living in a alf (including now)? Patient declined 08/01/2024 Comments No Sex and Gender Information Value Date Recorded Sex Assigned at Female 06/20/2024 8:39 AM CDT Legal Sex Female 9:04 AM CDT Gender Identity Female 06/20/2024 8:39 AM CDT Sexual Orientation Bisexual 06/20/2024 8: 39 AM CDT documented as of this encounter Last Filed Vital Signs Vital Sign Reading Time Taken Comments Blood Pressure 134/87 08/22/2024 11:36 AM CDT Pulse 78 08/22/2024 11:36 AM CDT Temperature 36.7 ??C (98 ??F) 08/22/2024 11:36 AM CDT Respiratory Rate 16 08/22/2024 11:36 AM CDT Oxygen Saturation 100% 08/22/2024 11:36 AM CDT Inhaled Oxygen Concentration - - Weight - - Height - - Body Mass Index - - documented in this encounter Miscellaneous Notes * Interdisciplinary - Carmina Porras RN - 08/22/2024 11:30 AM CDT Pt and significant other ambulated back to treatment chair. Vitals obtained. Pt states she is feeling better, still having loose/watery stools, has not been able to flower buncher or picker Colestipol r/t insurance. Port accessed per policy, flushed easily, and good blood return noted. Pt tolerated fluids well, no complaints throughout. Will draw labs at Tuesday appt, pt verbalized understanding. Port deaccessed by Elías Koroma RN. Pt and significant other ambulated out of treatment room in stable condition. documented in this encounter Plan of Treatment Upcoming Encounters Date Type Department Care Team (Late st Contact Info) Description 11/15/2024 1:00 PM INSPECTOR PRECISION ASSEMBLY [facility] [address] [place] [address] Markus Finley MD [address] [place] [address] 11/15/2024 2:00 PM INSPECTOR PRECISION ASSEMBLY [facility]ointment [facility] [address] [place] [address] Markus Finley MD [address] [place] [address] Discharge Disposition: Discharged to home or Selfcare documented as of this encounter Visit Diagnoses Diagnosis Diarrhea due to drug- Primary Diarrhea Metastatic melanoma (HCC) Melanoma of skin, site unspecified documented in this encounter Administered Medications Inactive Administered Medications - up to 3 most recent administrations Medication Order MAR Action Action Date Dose Rate Site 0.9 % sodium chloride solution at 999 mL/hr, Intravenous, CONTINUOUS, Starting on Tue08/22/24 at 1200, Until Tue08/22/24 at 1826Indications:Diarrhea due to drug,Metastatic melanoma (HCC) New Bag 08/22/2024 11:45 AM CDT 1,000 mL 999 mL/hr Heparin Na (Pork) Lock Flsh PF SOLN 50 Units 50 Units, Intravenous, PRN, Starting on Tue08/22/24 at 1148, Until Tue08/22/24 at 1826, Line CareIndications:Metastati c melanoma (HCC) Given by Other 08/22/2024 1:00 PM CDT 50 Units documented in this encounter Care Teams Chief Lock Tender Operator Relationship Specialty Start Date End Date Pritesh Chu MD [address] [place] [address] PCP - General Family Medicine 04/18/24 Markus Finley MD [address] [place] [address] Consulting Physician Medical Oncology 04/18/24 documented as of this encounter
--- OUTSIDE RECORDS SUMMARY | 2024-10-26 08:03 | XMS_ITS | Encounter Summary ---
Author Organization [facility] Address [address] [place] [address] Phone Care Team Providers Care Enterprise Sales Executive Name Role Phone Pritesh Chu MD Primary Care Provider [phone] Markus Finley MD Unavailable [phone] Encounter Details Date Type Department Care Team (Late st Contact Info) Description 07/25/2024 Post Discharge Follow-up [facility] Services [address] [place] [address] Arline Rojo, RN [place] Social History Tobacco Use Types Packs/Day Years Used Date Smoking Tobacco: Former Cigarettes 0.5 8.5 S tarted: 04/18/2016 Smokeless Tobacco: Never Alcohol Use Standard Drinks/Week Comments Yes 0 (1 standard drink = 0.6 oz pur e alcohol) [facility] Utilities Answer Date Recorded In the past 12 months has [employer] electric, gas, oil, or water company threatened to shut off services in your home? Patient declined 07/25/2024 Social Connection and Isolation Panel [NHANES] A nswer Date Recorded In a typical week, how many times do you talk on the phone with family, friends, or neighbors? Patient declined 07/25/2024 How often do you get togethe r with friends or relatives? Patient declined 07/25/2024 How often do you attend adventist or sikhism serv ices? Patient declined 07/25/2024 Do you belong to any clubs o r organizations such as adventist groups, unions, fraternal or athletic groups, or school groups? Patient declined 07/25/2024 How often do you attend meet ings of the clubs or organizations you belong to? Patient declined 07/25/2024 Are you , , di vorced, , never , or living with a partner? Patient declined 07/25/2024 AUDIT-C Answer Date Recorded Q1: How often do you have a drink containing alc ohol? Patient declined 07/25/2024 Q2: How many drinks containi ng alcohol do you have on a typical day when you are drinking? Patient declined 07/25/2024 Q3: How often do you have si x or more drinks on one occasion? Patient declined 07/25/2024 Overall Financial Resource Strain (CARDIA) Answe r Date Recorded How hard is it for you to pa y for the very basics like food, housing, medical care, and heating? Patient declined 07/25/2024 [facility] - Occupational Stress Questionnaire Answer Date Recorded Do you feel stress - tense, restless, nervous, or anxious, or unable to sleep at night because your mind is troubled all the time - these days? Patient declined 07/25/2024 Exercise Vital Sign Answer Date Recorde d On average, how many days pe r week do you engage in moderate to strenuous exercise (like a brisk walk)? Patient declined On average, how many minutes do you engage in exercise at this level? Patient declined 07/25/2024 Hunger Vital Sign Answer Date Recorded Within [...] appointments or from getting medications? Patient declined 07/25/2024 In the past 12 months, has l ack of transportation kept you from meetings, work, or from getting things needed for daily living? Patient declined 07/25/2024 Housing Stability Vital Sign Answer Shahid e Recorded In the last 12 months, was t here a time when you were not able to pay the mortgage or rent on time? Patient declined 07/25/20 24 In the past 12 months, how m any times have you moved where you were living? 1 07/25/2024 At any time in the past 12 m [facility], were you homeless or living in a intermediate (including now)? Patient declined 07/25/2024 Comments No Sex and Gender Information Value Date Recorded Sex Assigned at Female 06/20/2024 8:39 AM CDT Legal Sex Female 9:04 AM CDT Gender Identity Female 06/20/2024 8:39 AM CDT Sexual Orientation Bisexual 06/20/2024 8: 39 AM CDT documented as of this encounter Functional Status * Audit-C Score Answer Date of Assessment Author -1 07/25/2024 3:04 PM CDT Dontrell Padron RN * Within the last year, have you been humiliated or emotionally abused in other ways by your partner or ex-partner? Answer Date of Assessment Author Patient declined 07/25/2024 3:04 PM Charlie Srinivasan RN * Within the last year, have you been afraid of your partner or ex-partner? Answer Date of Assessment Author Patient declined 07/25/2024 3:04 PM NELIAT Charlie Padron RN * Within the last year, have you been raped or forced to have any kind of sexual activity by your partner or ex-partner? Answer Date of Assessment Author Patient declined 07/25/2024 3:04 PM NELIAT Charlie Padron RN * Within the last year, have you been kicked, hit, slapped, or otherwise physically hurt by your partner or ex-partner? Answer Date of Assessment Author Patient declined 07/25/2024 3:04 PM Charlie Srinivasan RN * Question Answer Date of Assessment Author Q1: How often do you have a drink containing alcohol? Patient declined 07/25/2024 3:04 PM Kiana Srinivasan RN Q2: How many drinks containing alcohol do you have on a typical day when you are drinking? Patient declined 07/25/2024 3:04 PM CDT Kiana Padron RN Q3: How often do you have six or more drinks on one occasion? Patient declined 07/25/2024 3:04 PM CDT Kiana Padron RN documented as of this encounter Miscellaneous Notes * Telephone Encounter - Arline Rojo RN - 07/25/2024 4:10 PM CDT Patient in the Emergency room. Unable to follow up documented in this encounter Plan of Treatment Upcoming Encounters Date Type Department Care Team (Late st Contact Info) Description 11/15/2024 1:00 PM RECORDS ASSOCIATE [facility] [address] [place] [address] Markus Finley MD [address] [place] [address] 11/15/2024 2:00 PM RECORDS ASSOCIATE [facility] [address] [place] [address] Markus Finley MD [address] [place] [address] Discharge Disposition: Discharged to home or Selfcare documented as of this encounter Visit Diagnoses Not on filedocumented in this encounter Care Teams Enterprise Sales Executive Relationship Specialty Start Date End Date Pritesh Chu MD [address] [place], [place] [id number] PCP - General Family Medicine 04/18/24 Markus Finley MD [address] [place] [address] Consulting Physician Medical Oncology 04/18/24 documented as of this encounter
--- OUTSIDE RECORDS SUMMARY | 2024-10-26 08:03 | XMS_ITS | Encounter Summary ---
Author Organization [facility] Address [address] [place] [address] Phone Care Team Providers Care Feed Grinder Name Role Phone Pritesh Chu MD Primary Care Provider Markus Finley MD Unavailable [phone] Reason for Visit * Episode Based Medications (Routine) - Closed Specialty Diagnoses / Procedures Referred By Contross t Referred To Contact Diagnoses Metastatic melanoma (HCC) Markus Finley MD [address] [place] [address] Phone: tel: fax: [facility] Oncology Services [address] [place] [address] Phone: tel: fax: Referral ID Status Reason Start Date Expiration Date Visits Re quested Visits Authorized [id number] Closed 04/19/2024 1 30 Encounter Details Date Type Department Care Team (Late st Contact Info) Description 08/10/2024 11:00 AM CDT Clinical Support [facility] [address] [place] [address] Markus Finley MD [address] [place] [address] Metastatic melanoma (HCC) (Primary Dx); Acute renal failure, unspecified acute renal failure type (HCC) Discharge Disposition: Discharged to home or Selfcare Social History Tobacco Use Types Packs/Day Years Used Date Smoking Tobacco: Former Cigarettes 0.5 8.5 S tarted: 04/18/2016 Smokeless Tobacco: Never Tobacco Cessation:Counseling Given: Not Answered Alcohol Use Standard Drinks/Week Comments Yes 0 (1 standard drink = 0.6 oz pur e alcohol) [facility] Utilities Answer Date Recorded In the [...] declined 08/01/2024 How often do you attend moravian or jewish serv ices? Patient declined 08/01/2024 Do you belong to any clubs o r organizations such as moravian groups, unions, fraternal or athletic groups, or [...] medical care, and heating? Patient declined 08/01/2024 [facility] [employer] [facility] - Occupational Stress Questionnaire Answer [...] any time in the past 12 m [facility], were you homeless or living in a halfway (including now)? Patient declined 08/01/2024 Comments No Sex and Gender Information Value Date Recorded Sex Assigned at Female 06/20/2024 8:39 AM CDT Legal Sex Female 9:04 AM CDT Gender Identity Female 06/20/2024 8:39 AM CDT Sexual Orientation Bisexual 06/20/2024 8: 39 AM CDT documented as of this encounter Last Filed Vital Signs Vital Sign Reading Time Taken Comments Blood Pressure 125/87 08/10/2024 11:09 AM CDT Pulse 73 08/10/2024 11:09 AM CDT Temperature 36.6 ??C (97.9 ??F) 08/10/2024 11:09 AM C DT Respiratory Rate 16 08/10/2024 11:09 AM CDT Oxygen Saturation 98% 08/10/2024 11:09 AM CDT Inhaled Oxygen Concentration - - Weight - - Height - - Body Mass Index - - documented in this encounter Miscellaneous Notes * Interdisciplinary - Liliana Finney RN - 08/10/2024 11:00 AM CDT Pt arrived for infusion and labs. VS obtained. Pt reports improvement in diarrhea, just a couple ofloose bowel movements that are beginning to solidify. She c/o open cracks/cuts on her hands, including fingers and palms, that have been oozing yellow pus. She is applying abx ointment to the area. Per MD, Bactrim DS to be ordered, as well as changing her Prednisone to 100mg AM and 20mg PM. Rx sentto local pharmacy. Labs drawn from port x1 attempt. Flushed easily with NS and with good blood return. Port needle intact and patent. 1L NS given per order and pt tolerated well. Pt added to schedulefor Tuesday for add'l fluids and repeat labs; Oked per Malia. Port flushed with NS and heparin per p rotocol and port needle removed. Port site covered with bandaid. Patient left tx area in stable condition with no further requests. documented in this encounter Plan of Treatment Upcoming Encounters Date Type Department Care Team (Late st Contact Info) Description 11/15/2024 1:00 PM [facility]ER [facility] [address] [place] [address] Markus Finley MD [address] [place] [address] 11/15/2024 2:00 PM TELEPHONER Appointment [facility] MRI [address] [place] [address] Markus Finley MD [address] [place] [address] Discharge Disposition: Discharged to home or Selfcare documented as of this encounter Procedures Procedure Name Priority Date/Time Associated Diagnosis Comments CBC WITH AUTO DIFFERENTIAL Routine 08/10/2024 11:20 AM CDT Acute renal failure, unspecified acute renal failure type (HCC) COMPLETE BLOOD COUNT (CBC) WITH DIFF Routine 08/10/2024 11:20 AM CDT Acute renal failure, unspecified acute renal failure type (HCC) BASIC METABOLIC PANEL W/ CALCIUM TOTAL Routine 08/10/2024 11:20 AM CDT Acute renal failure, unspecified acute renal failure type (HCC) documented in this encounter Results * (ABNORMAL) CBC WITH AUTO DIFFERENTIAL (08/10/2024 11:20 AM CDT) WBC 11.54 4.00 - 12.00 10(3)/mcL 08/10/2024 11:34 AM CDT [facility] RBC 3.93 3.80 - 5.30 10(6)/mcL 08/10/2024 11:34 AM CDT [facility] HEMOGLOBIN (HGB) 11.8(L) 12.0 - 15.8 g/dL 08/10/2024 11:34 AM CDT [facility] HEMATOCRIT (HCT) 34.3(L) 36.0 - 47.0 % 08/10/2024 11:34 AM CDT [facility] MCV 87.3 82.0 - 96.0 fL 08/10/2024 11:34 AM CDT [facility] MCH 30.0 26.0 - 34.0 pg 08/10/2024 11:34 AM CDT [facility] MCHC 34.4 31.0 - 36.0 g/dL 08/10/2024 11:34 AM CDT [facility] PLATELET COUNT 213 140 - 440 10(3)/mcL 08/10/2024 11:34 AM CDT [facility] RDW 14.4 11.8 - 15.5 % 08/10/2024 11:34 AM CDT [facility] MPV 9.3(L) 9.7 - 12.4 fL 08/10/2024 11:34 AM CDT [facility] NEUTROPHILS 90.0(H) 47.0 - 73.0 % 08/10/2024 11:34 AM CDT [facility] LYMPHOCYTES 5.2(L) 18.0 - 42.0 % 08/10/2024 11:34 AM CDT [facility] MONOCYTES 4.7 4.0 - 12.0 % 08/10/2024 11:34 AM CDT [facility] EOSINOPHILS 0.0 0.0 - 5.0 % 08/10/2024 11:34 AM CDT [facility] BASOPHILS 0.1 0.0 - 1.0 % 08/10/2024 11:34 AM CDT [facility] ABSOLUTE NEUTROPHILS 10.39(H) 1.60 - 7.70 10(3)/[facility] 08/10/2024 11:34 AM CDT [facility] ABSOLUTE LYMPHOCYTES 0.60(L) 1.30 - 3.20 10(3)/[facility] 08/10/2024 11:34 AM CDT [facility] ABSOLUTE MONOCYTES 0.54 0.20 - 1.00 10(3)/[facility] 08/10/2024 11:34 AM CDT [facility] ABSOLUTE EOSINOPHIL 0.00 0.00 - 0.40 10(3)/[facility] 08/10/2024 11:34 AM CDT [facility] ABSOLUTE BASOPHILS 0.01 0.00 - 0.10 10(3)/[facility] 08/10/2024 11:34 AM CDT [facility] NRBC PER 100 WBC 0 08/10/20 24 11:34 AM [facility] Blood Sub-Q Port Venou s Access Device (Medi-Port, Implanted Port) / Unknown 08/10/2024 11:20 AM CDT 08/10/2024 11:20 AM CDT us Lee Lan MD HEMATOLOGY ORDERABLES Fi nal Result [facility] [place] [address] * (ABNORMAL) BASIC METABOLIC PANEL W/ CALCIUM TOTAL (08/10/2024 11:20 AM CDT) SODIUM 133(L) 136 - 145 mmol/L 08/10/2024 11:56 AM CDT [facility] POTASSIUM 3.9 3.5 - 5.1 mmol/L 08/10/2024 11:56 AM CDT [facility] CHLORIDE 105 98 - 107 mmol/L 08/10/2024 11:56 AM CDT [facility] CO2, VENOUS 23 22 - 30 mmol/L 08/10/2024 11:56 AM CDT [facility] ANION GAP 8.9 <18.0 mmol/L 08/10/2024 11:56 AM CDT [facility] GLUCOSE 138(H) 70 - 99 mg/dL 08/10/2024 11:56 AM CDT [facility] BUN 15 5 - 18 mg/dL 08/10/2024 11:56 AM CDT [facility] CREATININE, BLOOD 0.86 0.60 - 1.00 mg/dL 08/10/2024 11:56 AM CDT [facility] BUN/CREATININE RATIO 17 12 - 20 ratio 08/10/2024 11:56 AM CDT [facility] CALCIUM 8.9 8.7 - 10.5 mg/dL 08/10/2024 11:56 AM CDT [facility] GFR, ESTIMATED >60 >=60 08/10/2024 11:56 AM CDT [facility] Comment: Creatinine Clearance is the preferred criteria for selecting drug dose adjustments in renally impaired patients. ??The GFR is provided as additional pertinent clinical information. GFR is reported in mL/min/1.73 sq m. Calculation based on the Chronic Kidney Disease Epidemiology Collaboration (CKD- EPI) equation refit without adjustment for race. GFR, EST. >60 >=60 024 11:56 AM CDT [facility] GFR, EST. NONAFRICAN >60 >=60 08/10/2024 11:56 AM CDT [facility] Blood Sub-Q Port Venou s Access Device (Medi-Port, Implanted Port) / Unknown 08/10/2024 11:20 AM CDT 08/10/2024 11:20 AM CDT us Lee Lan MD CHEMISTRY ORDERABLES Fin al Result [facility] [place] [address] documented in this encounter Visit Diagnoses Diagnosis Metastatic melanoma (HCC)- Primary Melanoma of skin, site unspecified Acute renal failure, unspecified acute renal failure type (HCC) documented in this encounter Administered Medications Inactive Administered Medications - up to 3 most recent administrations Medication Order MAR Action Action Date Dose Rate Site 0.9 % sodium chloride solution at 999 mL/hr, Intravenous, ONCE, 1 dose, On Tue08/10/24 at 1130Indications:Metastatic melanoma (HCC),Acute renal failure, unspecified acute renal failure type (HCC) New Bag 08/10/2024 11:20 AM CDT 1,000 mL 999 mL/hr Heparin Na (Pork) Lock Flsh PF SOLN 30 Units 30 Units, Intravenous, PRN, 1 dose, Starting on Tue08/10/24 at 1256, Until Tue08/10/24 at 1235, Line CareIndications:Metastatic melanoma (HCC) Given 08/10/2024 12:35 PM CDT 30 Units documented in this encounter Care Teams Feed Grinder Relationship Specialty Start Date End Date Pritesh Chu MD [address] [address] PCP - General Family Medicine 04/18/24 Markus Finley MD [address] [place] [address] Consulting Physician Medical Oncology 04/18/24 documented as of this encounter
--- OUTSIDE RECORDS SUMMARY | 2024-10-26 08:03 | XMS_ITS | Encounter Summary ---
Author Organization [employer] Care Team Providers Care Blueprint Duplicator Name Role Phone Pritesh Chu MD Primary Care Provider Markus Finley MD Unavailable [phone] Encounter Details Date Type Department Care Team (Latest Contact Info) Description 08/06/2024 Travel Social History Tobacco Use Types Packs/Day Years Used Date Smoking Tobacco: Former Cigarettes 0.5 8.5 S tarted: 04/18/2016 Smokeless Tobacco: Never Alcohol Use Standard Drinks/Week Comments Yes 0 (1 standard drink = 0.6 oz pur e alcohol) [facility] Utilities Answer Date Recorded In the past 12 months has [employer], gas, oil, or water [employer] threatened to shut off services in your home? Patient declined 08/01/2024 Social Connection and Isolation Panel [NHANES] A nswer Date Recorded In a typical week, how many times do you talk on the phone with family, friends, or neighbors? Patient declined 08/01/2024 How often do you get togethe r with friends or relatives? Patient declined 08/01/2024 How often do you attend sikhism or methodist serv ices? Patient declined 08/01/2024 Do you belong to any clubs o r organizations such as sikhism groups, unions, fraternal or athletic groups, or [...] medical care, and heating? Patient declined 08/01/2024 [facility] - Occupational Stress Questionnaire Answer [...] st Contact Info) Description 11/15/2024 1:00 PM SUPERVISOR TILE AND MOTTLE Lab [facility] [address] [place] [address] Markus Finley MD [address] [place] [address] 11/15/2024 2:00 PM SUPERVISOR TILE AND MOTTLE [facility]ointment [facility] [address] [place] [address] Markus Finley MD [address] [place] [address] Discharge Disposition: Discharged to home or Selfcare documented as of this encounter Visit Diagnoses Not on filedocumented in this encounter Care Teams Blueprint Duplicator Relationship Specialty Start Date End Date Pritesh Chu MD [address] [place] [address] PCP - General Family Medicine 04/18/24 Markus Finley MD [address] [place] [address] Consulting Physician Medical Oncology 04/18/24 documented as of this encounter
--- OUTSIDE RECORDS SUMMARY | 2024-10-26 08:03 | XMS_ITS | Encounter Summary ---
Author Organization [facility] Address [address] [place] [address] Phone Care Team Providers Care Junior Sales Assistant Name Role Phone Pritesh Chu MD Primary Care Provider [phone] Markus Finley MD Unavailable [phone] Reason for Visit * Reason Onset Date Comments Transition of Care 07/31/2024 TCM 1st attem pt Encounter Details Date Type Department Care Team (Late st Contact Info) Description 07/31/2024 Patient Outreach [facility] Language Arts Teacher Management [address] [place] [address] Maday Suarez, RN [place] Transition of Care (TCM 1st attempt) Social History Tobacco Use Types Packs/Day Years Used Date Smoking Tobacco: Former Cigarettes 0.5 8.5 S tarted: 04/18/2016 Smokeless Tobacco: Never Alcohol Use Standard Drinks/Week Comments Yes 0 (1 standard drink = 0.6 oz pur e alcohol) [facility] Utilities Answer Date Recorded In [...] declined 08/01/2024 How often do you attend congregational or gnosticist serv ices? Patient declined 08/01/2024 Do you belong to any clubs o r organizations such as congregational groups, unions, fraternal or athletic groups, or [...] medical care, and heating? Patient declined 08/01/2024 [facility] - Occupational [...] time in the past 12 m [facility], were you homeless or living in a care home (including now)? Patient declined 08/01/2024 Comments No Sex and Gender Information Value Date Recorded Sex Assigned at Female 06/20/2024 8:39 AM CDT Legal Sex Female 9:04 AM CDT Gender Identity Female 06/20/2024 8:39 AM CDT Sexual Orientation Bisexual 06/20/2024 8: 39 AM CDT documented as of this encounter Progress Notes * Maday Suarez, RN - 07/31/2024 11:12 AM CDT Care Management Post Discharge Follow-Up Call Discharge diagnosis: ALEXX Discharge facility: [facility] Patient's Current Condition: Chris states that she is doing ok. Denies pain, had some nausea this morning and states that she has medication for that. Reports feeling weak when first getting up, but she has taken her medications and is starting to feel better. She refused review. States that she hasno questions. She has f/u with Dr. Finley on 08/01 and states that she doesn't see her PCP. States that she never has seen him and that she was referred directly to Malia for the melanoma, so she will not be making an appt. Denies any needs at this time. Does the patient live alone? Not assessed Caregiver: self DME: not assessed Diet: general Daily weight: not assessed Blood pressure: not assessed Glucose: not assessed Oxygen: no Nebulizer: no Medications: Did the patient seed cone picker their medications from the pharmacy? Yes Is the patient compliant with the medication directions? Yes Follow Up Appointments: All Patient Appointments Provider Department Dept Phone 08/01/2024 2:20 PM Markus Finley [facility] Oncology Services [phone] 08/07/2024 2:00 PM [facility] CC INFUSION CHR7 [facility] Oncology Services [phone] PCP:Dr. Chu - states she will not f/u with PCP and she only sees [facility] Appointment scheduled within 7 days of Discharge (5 days for Heart Failure)? Yes, with [facility] - oncology Transportation: Patient plans to attend follow-up appointment and has transportation to follow up visit?Yes 60 Day utilization: ED: 3 Hospital Admissions: 2 Please call Rn Ccu Maday RN, at [phone] with any questions. documented in this encounter Plan of Treatment Upcoming Encounters Date Type Department Care Team (Late st Contact Info) Description 11/15/2024 1:00 PM FATBACK TRIMMER Lab [facility] Laboratory Services [address] [place] [address] Markus Finley MD [address] [place] [address] 11/15/2024 2:00 PM FATBACK TRIMMER Appointment [facility] MRI [address] [place] [address] Markus Finley MD [address] [place] [address] Discharge Disposition: Discharged to home or Selfcare documented as of this encounter Visit Diagnoses Not on filedocumented in this encounter Care Teams Junior Sales Assistant Relationship Specialty Start Date End Date Pritesh Chu MD [address] [place] [address] PCP - General Family Medicine 04/18/24 Markus Finley MD [address] [place] [address] Consulting Physician Medical Oncology 04/18/24 documented as of this encounter
--- OUTSIDE RECORDS SUMMARY | 2024-10-26 08:03 | XMS_ITS | Encounter Summary ---
Author Organization [facility] Address [address] [place] [address] Phone Care Team Providers Care Miller Wood Flour Name Role Phone Pritesh Cuh MD Primary Care Provider [phone] Markus Finley MD Unavailable [phone] Reason for Visit * Reason Onset Date Comments Transition of Care 08/04/2024 Encounter Details Date Type Department Care Team (Late st Contact Info) Description 08/04/2024 Patient Outreach [facility] Airline Managerial Supervisor Management [address] [place] [address] Yadira Gill, base loader of Care Social History Tobacco Use Types Packs/Day Years Used Date Smoking Tobacco: Former Cigarettes 0.5 8.5 S tarted: 04/18/2016 Smokeless Tobacco: Never Alcohol Use Standard Drinks/Week Comments Yes 0 (1 standard drink = 0.6 oz pur e alcohol) [facility] Utilities Answer Date Recorded In the [...] How often do you attend baptist or mandaeism serv ices? Patient declined 08/01/2024 Do you [...] medical care, and heating? Patient declined 08/01/2024 [facility] of Occupat ional [facility] - Occupational Stress Questionnaire Answer Date [...] any time in the past 12 m [facility], were you homeless or living in a nursing home (including now)? Patient declined 08/01/2024 Comments No Sex and Gender Information Value Date Recorded Sex Assigned at Female 06/20/2024 8:39 AM CDT Legal Sex Female 9:04 AM CDT Gender Identity Female 06/20/2024 8:39 AM CDT Sexual Orientation Bisexual 06/20/2024 8: 39 AM CDT documented as of this encounter Progress Notes * Yadira Gill RN - 08/04/2024 4:16 PM CDT Pt d/c from [facility] 08/03 dx acute renal failure d/t nausea/vomiting/dehydration 1st attempt NO answer * Yadira Gill RN - 08/04/2024 4:16 PM CDT 2nd attempt NO answer -letter sent documented in this encounter Plan of Treatment Upcoming Encounters Date Type Department Care Team (Late st Contact Info) Description 11/15/2024 1:00 PM NUT TAPPER Lab [facility] Laboratory Services [address] [place] [address] Markus Finley MD [address] [place] [address] 11/15/2024 2:00 PM NUT TAPPER Appointment [facility] Emergency Department MRI 1 [facility] [place] [address] Markus Finley MD [address] [place] [address] Discharge Disposition: Discharged to home or Selfcare documented as of this encounter Visit Diagnoses Not on filedocumented in this encounter Care Teams Miller Wood Flour Relationship Specialty Start Date End Date Pritesh Chu MD [address] [place] [address] PCP - General Family Medicine 04/18/24 Markus Finley MD [address] [place] [address] Consulting Physician Medical Oncology 04/18/24 documented as of this encounter
--- OUTSIDE RECORDS SUMMARY | 2024-10-26 08:03 | XMS_ITS | Encounter Summary ---
Author Organization [employer] Care Team Providers Care Anesthesiology Fellow Name Role Phone Pritesh Chu MD Primary Care Provider [phone] Markus Finley MD Unavailable [phone] Encounter Details Date Type Department Care Team (Latest Contact Info) Description 08/15/2024 Travel Social History Tobacco Use Types Packs/Day Years Used Date Smoking Tobacco: Former Cigarettes 0.5 8.5 S tarted: 04/18/2016 Smokeless Tobacco: Never Alcohol Use Standard Drinks/Week Comments Yes 0 (1 standard drink = 0.6 oz pur e alcohol) [facility] Utilities Answer Date Recorded In the past 12 months has [employer], gas, oil, or water [employer] threatened to shut off services in your home? Patient declined 08/01/2024 Social Connection and Isolation Panel [NHANES] A nswer Date Recorded In a typical week, how many times do you talk on the phone with family, friends, or neighbors? Patient declined 08/01/2024 How often do you get togethe r with friends or relatives? Patient declined 08/01/2024 How often do you attend jew or denominational serv ices? Patient declined 08/01/2024 Do you belong to any clubs o r organizations such as jew groups, unions, fraternal or athletic groups, or [...] medical care, and heating? Patient declined 08/01/2024 [facility] of Occupat ional [facility] - Occupational Stress Questionnaire Answer [...] any time in the past 12 m [facility], were you homeless or living in a m[facility] (including now)? Patient declined 08/01/2024 Comments No [...] st Contact Info) Description 11/15/2024 1:00 PM REFINERY OPERATOR HELPER CRUDE UNIT Lab [facility] [address] [place] [address] Markus Finley MD [address] [place] [address] 11/15/2024 2:00 PM REFINERY OPERATOR HELPER CRUDE UNIT [facility]ment [facility] MRI [address] [place] [address] Markus Finley MD [address] [place] [address] Discharge Disposition: Discharged to home or Selfcare documented as of this encounter Visit Diagnoses Not on filedocumented in this encounter Care Teams Anesthesiology Fellow Relationship Specialty Start Date End Date Pritesh Chu MD [address] [place] [address] PCP - General Family Medicine 04/18/24 Markus Finley MD [address] [place] [address] Consulting Physician Medical Oncology 04/18/24 documented as of this encounter
--- OUTSIDE RECORDS SUMMARY | 2024-10-26 08:03 | XMS_ITS | Encounter Summary ---
Author Organization [facility] Address [address] [facility] [place] [address] Phone Care Team Providers Care Measurement Technician Name Role Phone Prietsh Chu MD Primary Care Provider [phone] Markus Finley MD Unavailable [phone] Reason for Referral * Radiology Services (Routine) - Closed Specialty Diagnoses / Procedures Referred By Delbert villareal Referred To Contact Radiology Diagnoses Metastatic melanoma (HCC) Procedures PET CT TUMOR IMAGING WHOLE BODY Markus Finley MD [address] [place] [address] Phone: tel: fax: Referral ID Status Reason Start Date Expiration Date Visits Re quested Visits Authorized [id number] Closed 08/06/2024 1 1 Reason for Visit * Reason Comments Follow-up Encounter Details Date Type Department Care Team (Latest Contact Info) Description 08/06/2024 10:40 AM CDT Office Visit [facility] Oncology Services [address] [place] [address] Markus Finley MD [address] [place] [address] Metastatic melanoma (HCC) (Primary Dx); Hypothyroidism due [...] drink = 0.6 oz pur e alcohol) [facility] [employer] Answer Date Recorded In the past 12 months has th e electric, gas, oil, or water [employer] threatened to shut off services in your home? Patient declined 08/01/2024 Social Connection and Isolation Panel [NHANES] A nswer Date Recorded In a typical week, how many times do you talk on the phone with family, friends, or neighbors? Patient declined 08/01/2024 How often do you get togethe r with friends or relatives? Patient declined 08/01/2024 How often do you attend worship or caodaism serv ices? Patient declined 08/01/2024 Do you belong to any clubs o r organizations such as worship groups, unions, fraternal or athletic groups, or [...] medical care, and heating? Patient declined 08/01/2024 [facility] [place] of Occupat ional Health - Occupational Stress [...] any time in the past 12 m [facility], were you homeless or living in [...] Sign Reading Time Taken Comments Blood Pressure 135/88 08/06/2024 11:16 AM CDT Pulse 78 08/06/2024 11:16 AM CDT Temperature 36.3 ??C (97.4 ??F) 08/06/2024 11:16 AM C DT Respiratory Rate 20 08/06/2024 11:16 AM CDT Oxygen Saturation 99% 08/06/2024 11:16 AM CDT Inhaled Oxygen Concentration - - Weight 115 kg (253 lb 8 oz) 08/06/2024 11:16 AM CDT Height 167.6 cm (5' 6 ) 08/06/2024 11:16 AM CDT Body Mass Index 40.92 08/06/2024 11:16 AM CDT documented in this encounter Progress Notes * Seble Artis - 08/06/2024 10:40 AM CDT Outpatient Hem/Onc Progress Note PROGRESS NOTE Dayanara Hilton is a 24 y.o. female seen today for follow up of metastatic melanoma. Patient requests to be called Chris. 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 Patient was discharged home with plans to continue IV NS through infusion clinic along with Prednisone 100 mg po daily plus Levothyroxine 100 mcg po AM. Chris is currently on treatment with Opdivo 3 mg/kg plus Yervoy 1 mg/kg every 28 days, started on 05/01/24. Last treatment received on 07/17/24. 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 Reviewed patients past medical, surgical, social, and family history. No outpatient medications have been marked as taking for the 08/06/24 encounter (Appointment) with Markus Finley MD. Allergies as of 08/06/2024 (No Known Allergies) REVIEW OF SYSTEMS ROS Physical Exam Physical Exam PAIN ASSESSMENT: Chris complains of abdominal pain that waxes and wanes. DATA: Lab Results Component Value Date WBC 8.19 08/03/2024 RBC 4.01 08/03/2024 HEMOGLOBIN 12.1 08/03/2024 HEMATOCRIT 35.4 (L) 08/03/2024 MCV 88.3 08/03/2024 MCH 30.2 08/03/2024 MCHC 34.2 08/03/2024 PLATELETCNT 225 08/03/2024 RDW 13.7 08/03/2024 LYMPHOCYTES 4.8 (L) 08/03/2024 RELEOS 0.0 08/03/2024 RELBAS 0.1 08/03/2024 ANC 7.40 08/03/2024 MONOCYTES 0.39 08/03/2024 EOSINOPHILS 0.00 08/03/2024 BASOPHILS 0.01 08/03/2024 Lab Results Component Value Date SODIUM 133 (L) 08/03/2024 POTASSIUM 5.1 08/03/2024 CHLORIDE 109 (H) 08/03/2024 ANIONGAP 11.1 08/03/2024 GLUCOSE 97 08/03/2024 BUN 18 08/03/2024 CREATININE 1.49 (H) 08/03/2024 TOTALPROTEIN 9.0 (H) 08/01/2024 ALBUMIN 4.7 08/01/2024 CALCIUM 8.7 08/03/2024 SGPTALT 53 08/01/2024 ALKALINEPHO 85 08/01/2024 02/21/24 PATHOLOGY REPORT [facility]: FINAL DIAGNOSIS: Skin, [...] mm from the melanoma DIAGNOSTIC IMAGING STUDIES: CT abdomen pelvis done at [facility] on 06/27/2024 No evidence of appendicitis. [...] secondary to dehydration and hypotension Hypokalemia Plan: #. IV NS through infusion clinic every # to maintain hydration and prevent ALEXX requiring hospital admission. #. 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 #. Continue Levothyroxine 100 mcg daily in morning on empty stomach. #. Continue Omeprazole 40 mg daily to prevent acid reflux while on oral steroids. #. Continue Lomotil 2.5 mg every 6 hours as needed for severe diarrhea. Patient was encouraged to use OTC Imodium as needed for less severe symptoms to prevent constipation from developing. Follow up in # The patient was given an opportunity to ask questions, and all questions answered to patient's satisfaction. Patient verbalizes understanding of the plan as outlined above. The documentation for this visit was completed by Seble Artis acting as a scribe for Markus Moses MD. 08/06/2024, 9:11 AM CDT * Markus Finley MD - 08/06/2024 10:40 AM CDT Outpatient Hem/Onc Progress Note PROGRESS NOTE Dayanara Hilton is a 24 y.o. female seen today for follow up of metastatic melanoma. Patient requests to be called Chris. 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 Patient was discharged home with plans to continue IV NS through infusion clinic along with Prednisone 100 mg po BID plus Levothyroxine 100 mcg po AM. Chris was on treatment with Opdivo 3 mg/kg plus Yervoy 1 mg/kg every 28 days, started on 05/01/24. Last treatment received on 07/17/24. Since discharge, feels much better. On Tuesday had 12 BM in 24 hr period and on Tuesday had 7 BM in20 hr priod. Since last night and this morning, had only 2 BMs. Some form-ness to the stool this morning. Taking lomotil 3-4 per day and imodium 4 times per day. Has not had much nausea and has not had to take zofran etc Taking levothyroxine 100 mcg PO in the morning PET not scheduled this week. Taking 20 meq - three tabs BID for potassium daily Sleeping ok. No current abdominal pain ECOG PERFORMANCE STATUS:1 DIAGNOSIS/TREATMENT HISTORY: Metastatic melanoma She reports it started after developing mole on the dorsum of the left foot that in 2021 started toswell with blood. Patient reports evaluation by PCP with referral to dermatology for further evaluation. Dayanara was referred to Dr. 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 Reviewed patients past medical, surgical, social, and family history. No outpatient medications have been marked as taking for the 08/06/24 encounter (Office Visit) with Markus Finley MD. Allergies as of 08/06/2024 (No Known Allergies) REVIEW OF SYSTEMS Review [...] DATA: Lab Results Component Value Date WBC 8.19 08/03/2024 RBC 4.01 08/03/2024 HEMOGLOBIN 12.1 08/03/2024 HEMATOCRIT 35.4 (L) 08/03/2024 MCV 88.3 08/03/2024 MCH 30.2 08/03/2024 MCHC 34.2 08/03/2024 PLATELETCNT 225 08/03/2024 RDW 13.7 08/03/2024 LYMPHOCYTES 4.8 (L) 08/03/2024 RELEOS 0.0 08/03/2024 RELBAS 0.1 08/03/2024 ANC 7.40 08/03/2024 MONOCYTES 0.39 08/03/2024 EOSINOPHILS 0.00 08/03/2024 BASOPHILS 0.01 08/03/2024 Lab Results Component Value Date SODIUM 133 (L) 08/03/2024 POTASSIUM 5.1 08/03/2024 CHLORIDE 109 (H) 08/03/2024 ANIONGAP 11.1 08/03/2024 GLUCOSE 97 08/03/2024 BUN 18 08/03/2024 CREATININE 1.49 (H) 08/03/2024 TOTALPROTEIN 9.0 (H) 08/01/2024 ALBUMIN 4.7 08/01/2024 CALCIUM 8.7 08/03/2024 SGPTALT 53 08/01/2024 ALKALINEPHO 85 08/01/2024 02/21/24 PATHOLOGY REPORT [facility]: FINAL DIAGNOSIS: Skin, [...] mm from the melanoma DIAGNOSTIC IMAGING STUDIES: CT abdomen pelvis done at [facility] on 06/27/2024 No evidence of appendicitis. [...] secondary to dehydration and hypotension Hypokalemia Plan: 1. Reviewed patient's recent clinical symptoms, recent hospitalization for ongoing issues of nauseaand severe diarrhea from immunotherapy. We will continue hold immunotherapy. She has completed 4 cycles of Opdivo and Yervoy. We will schedule her PET scan per patient's request at [facility] this time to evaluate response in the subcutaneous nodules. In the meantime we have requested Tempus XT on the tissue from last year to check for actionable mutations specially to check for [id number] mutation 2. her symptoms look significantly improved. Continue current prednisone 100 mg p.o. b.i.d.. We will check her labs today. IV fluid normal saline today. Continue omeprazole daily. 3. IV NS through infusion clinic every other day to maintain hydration and prevent ALEXX requiring hospital admission. 4. 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 We will slowly start titrating prednisone down later part of this week pending her symptoms and labs. 5. Continue Levothyroxine 100 mcg daily in morning on empty stomach. 6. Continue Omeprazole 40 mg daily to prevent acid reflux while on oral steroids. 7. Continue Lomotil 2.5 mg every 6 hours as needed for severe diarrhea. Patient was encouraged to use OTC Imodium as needed for less severe symptoms to prevent constipation from developing. 8. Check potassium level today and then will discuss ongoing potassium supplementation with patient. Follow up in 1 week The patient was given an opportunity to ask questions, and all questions answered to patient's satisfaction. Patient verbalizes understanding of the plan as outlined above. The documentation for this visit was completed by Seble Artis acting as a scribe for Markus Moses MD. 08/06/2024, 11:35 AM CDT The documentation recorded by the scribe was completed while in the exam room with me and the patient. The documentation accurately reflects the service I personally performed and the decisions made by me. I have confirmed and edited the documentation as necessary. Markus Finley MD 08/06/2024, 12:42 PM CDT documented in this encounter Miscellaneous Notes * Interdisciplinary - Sandra Mcclelland - 08/06/2024 10:40 AM CDT The patient reports mild fatigue during today's visit. States her symptoms have improved over the last several days. Good appetite, no nausea/vomiting and pain score is 0. * Sandra Viera - 08/06/2024 10:40 AM CDT AVS printed. Patient escorted to the infusion center for IV fluids. She will follow up in 1 week. documented in this encounter Plan of Treatment Upcoming Encounters Date Type Department Care Team (Late st Contact Info) Description 11/15/2024 1:00 PM WET SANDER Lab [facility] Laboratory Services [address] [place] [address] Markus Finley MD [address] [place] [address] 11/15/2024 2:00 PM WET SANDER Appointment [facility] MRI [address] [place] [address] [place] [address] Discharge Disposition: Discharged to home or Selfcare documented as of this encounter Results * PET CT TUMOR [...] 11:30 AM - Electronically signed by ??Zachariah Carrizalse M.D. LB: KRUNAL D: ??08/16/2024 11:30 AM T: ??08/16/2024 11:30 AM Report ID: [id number] Reading Location: ??[id number] Procedure Note Zachariah Carrizales MD - 08/16/2024 [...] Zachariah Carrizales M.D. LB: KRUNAL Report ID: [id number] Reading Location: [id number] IMPRESSION: Hypermetabolic left inguinal lymph node measuring [...] (HCC)- Primary Melanoma of skin, site unspecified Hypothyroidism due to medication Acute renal failure, unspecified acute renal failure type (HCC) Hypokalemia due to excessive gastrointestinal loss of potassium Dehydration Immunotherapy Reserved for inherently not codable concepts WITHOUT codable children Diarrhea due to drug Diarrhea Metastatic melanoma (HCC) Melanoma of skin, site unspecified documented in this encounter Care Teams Measurement Technician Relationship Specialty Start Date End Date Pritesh Chu MD [address] [address] PCP - General Family Medicine 04/18/24 Markus Finley MD [address] [place] [address] Consulting Physician Medical Oncology 04/18/24 documented as of this encounter
--- OUTSIDE RECORDS SUMMARY | 2024-10-26 08:03 | XMS_ITS | Encounter Summary ---
Author Organization [facility] Address [address] [facility] [place] [address] Phone Care Team Providers Care Drum Sander Name Role Phone Pritesh Chu MD Primary Care Provider [phone] Markus Finley MD Unavailable [phone] Encounter Details Date Type Department Care Team (Late st Contact Info) Description 08/14/2024 Telephone [facility] Oncology Services [address] [place] [id number] Markus Finley MD [address] [place] [address] Social History Tobacco Use Types Packs/Day Years Used Date Smoking Tobacco: Former Cigarettes 0.5 8.5 S tarted: 04/18/2016 Smokeless Tobacco: Never Alcohol Use Standard Drinks/Week Comments Yes 0 (1 standard drink = 0.6 oz pur e alcohol) [facility] Utilities Answer Date Recorded In the [...] How often do you attend sikhism or tenriism serv ices? Patient declined 08/01/2024 Do you [...] medical care, and heating? Patient declined 08/01/2024 [facility] of Occupat ional Health - Occupational [...] declined 08/01/2024 Housing Stability Vital Sign Answer Shaihd e Recorded In the last 12 months, was t here a time when you were not able to pay the mortgage or rent on time? Patient declined 08/01/20 24 In the past 12 months, how m any times have you moved where you were living? 1 08/01/2024 At any time in the past [address] [facility], were you homeless or living in a longterm (including now)? Patient declined 08/01/2024 Comments No Sex and Gender Information Value Date Recorded Sex Assigned at Female 06/20/2024 8:39 AM CDT Legal Sex Female 9:04 AM CDT Gender Identity Female 06/20/2024 8:39 AM CDT Sexual Orientation Bisexual 06/20/2024 8: 39 AM CDT documented as of this encounter Miscellaneous Notes * Telephone Encounter - Marie Barclay RN - 08/14/2024 2:20 PM CDT Patient called requesting a refill on Omeprazole and switching potassium to packets. Prescriptions for both medications sent to [facility] documented in this encounter Plan of Treatment Upcoming Encounters Date Type Department Care Team (Late st Contact Info) Description 11/15/2024 1:00 PM CUT OUT PRESS OPERATOR Lab [facility] Laboratory Services [address] [place] [address] Markus Finley MD [address] [place] [address] 11/15/2024 2:00 PM CUT OUT PRESS OPERATOR [facility] [address] [place] [address] Markus Finley MD [address] [place] [address] Discharge Disposition: Discharged to home or Selfcare documented as of this encounter Visit Diagnoses Not on filedocumented in this encounter Care Teams Drum Sander Relationship Specialty Start Date End Date Pritesh Chu MD [address] [place] [address] PCP - General Family Medicine 04/18/24 Markus Finley MD [address] [place] [address] Consulting Physician Medical Oncology 04/18/24 documented as of this encounter
--- OUTSIDE RECORDS SUMMARY | 2024-10-26 08:03 | XMS_ITS | Encounter Summary ---
Author Organization [facility] Address [address] [place] [address] Phone Care Team Providers Care Director Of Programming Name Role Phone Pritesh Chu MD Primary Care Provider [phone] Markus Finley MD Unavailable [phone] Reason for Visit * Reason Onset Date Comments Transition of Care 08/09/2024 Week #1 Encounter Details Date Type Department Care Team (Late st Contact Info) Description 08/09/2024 Patient Outreach [facility] Linux Administrator Management [address], [place] [address] Lucille Lawson RN [place] Transition of Care (Week #1 ) Social History Tobacco Use Types Packs/Day Years Used Date Smoking Tobacco: Former Cigarettes 0.5 8.5 S tarted: 04/18/2016 Smokeless Tobacco: Never Alcohol Use Standard Drinks/Week Comments Yes 0 (1 standard drink = 0.6 oz pur e alcohol) [facility] Utilities Answer Date Recorded In [...] declined 08/01/2024 How often do you attend methodist or zoroastrian serv ices? Patient declined 08/01/2024 Do you belong to any clubs o r organizations such as methodist groups, unions, fraternal or athletic groups, or [...] any time in the past 12 m [facility], were you homeless or living in a halfway (including now)? Patient declined 08/01/2024 Comments No Sex and Gender Information Value Date Recorded Sex Assigned at Female 06/20/2024 8:39 AM CDT Legal Sex Female 9:04 AM CDT Gender Identity Female 06/20/2024 8:39 AM CDT Sexual Orientation Bisexual 06/20/2024 8: 39 AM CDT documented as of this encounter Progress Notes * Lucille Lawson RN - 08/09/2024 3:42 PM CDT Transition of Care Week #1 - Follow up call (acute renal failure) Client's Current Condition: Spoke with patient . Feels well, no pain. Eating and drinking well. No weakness, up and about no DME needed. No shortness of breath. Saw her PCP and had labs all look ok. No new concerns at this time Living status: with others Primary Caregiver: self Needs DME: None Current Weight: not taken Blood pressure: not taken Assess Glucose: NA Oxygen: none Nebulizer: none Transportation Concern: no Post Discharge follow-up visit completed: yes Medications Reviewed: Yes Next Steps: follow up with drug counselor as schedule RN Care Management Assessment Scheduled: no does not want Social Work Assessment needed: no Patient needs further transition of care calls: No, not needed Please call Wood Turning Lathe Operator Lucille Lawson RN at [phone] with any questions. Follow Up Appointments: Patient and health underwriter reviewed upcoming appointments and patient acknowledged understanding. All Patient Appointments Provider Department Dept Phone 08/10/2024 11:00 AM [facility] INFUSION BED1 [facility] Oncology Services [phone] 08/13/2024 2:00 PM Markus Finley [facility] Oncology Services [phone] 08/15/2024 3:00 PM [id number] [facility] PET [phone] documented in this encounter Plan of Treatment Upcoming Encounters Date Type Department Care Team (Late st Contact Info) Description 11/15/2024 1:00 PM PUBLIC IMPROVEMENT INSPECTOR Lab [facility] Laboratory Services [address] [place] [phone] Markus Finley MD [address] [place] [address] 11/15/2024 2:00 PM PUBLIC IMPROVEMENT INSPECTOR Appointment [facility] MRI [address] [place] [phone] Markus Finley MD [address] [place] [address] Discharge Disposition: Discharged to home or Selfcare documented as of this encounter Visit Diagnoses Not on filedocumented in this encounter Care Teams Director Of Programming Relationship Specialty Start Date End Date Pritesh Chu MD [address] [address] PCP - General Family Medicine 04/18/24 Markus Finley MD [address] [place] [address] Consulting Physician Medical Oncology 04/18/24 documented as of this encounter
--- OUTSIDE RECORDS SUMMARY | 2024-10-26 08:03 | XMS_ITS | Encounter Summary ---
Author Organization [facility] Address [address] [facility] [place] [address] Phone Care Team Providers Care Pattern Wheel Maker Name Role Phone Pritesh Chu MD Primary Care Provider [phone] Markus Finley MD Unavailable [phone] Encounter Details Date Type Department Care Team (Late st Contact Info) Description 07/25/2024 10:30 AM CDT Clinical Support [facility] Oncology Services [address] [place] [id number] Markus Finley MD [address] [place] [address] Metastatic melanoma (HCC) (Primary Dx) Discharge Disposition: Discharged to home or Selfcare Social History Tobacco Use Types Packs/Day Years Used Date Smoking Tobacco: Former Cigarettes 0.5 8.5 S tarted: 04/18/2016 Smokeless Tobacco: Never Alcohol Use Standard Drinks/Week Comments Yes 0 (1 standard drink = 0.6 oz pur e alcohol) [facility] Utilities Answer Date Recorded In the past 12 months has [place], gas, oil, or water [employer] threatened to shut off services in your home? Patient declined 07/25/2024 Social Connection and Isolation Panel [NHANES] A nswer Date Recorded In a typical week, how many times do you talk on the phone with family, friends, or neighbors? Patient declined 07/25/2024 How often do you get togethe r with friends or relatives? Patient declined 07/25/2024 How often do you attend orthodox or orthodoxy serv ices? Patient declined 07/25/2024 Do you belong to any clubs o r organizations such as orthodox groups, unions, fraternal or athletic groups, [...] medical care, and heating? Patient declined 07/25/2024 [facility] of Occupat ional Health - [...] any time in the past 12 m [facility], were you homeless or living in a assisted (including now)? Patient declined 07/25/2024 Comments No Sex and Gender Information Value Date Recorded Sex Assigned at Female 06/20/2024 8:39 AM CDT Legal Sex Female 9:04 AM CDT Gender Identity Female 06/20/2024 8:39 AM CDT Sexual Orientation Bisexual 06/20/2024 8: 39 AM CDT documented as of this encounter Last Filed Vital Signs Vital Sign Reading Time Taken Comments Blood Pressure 99/80 07/25/2024 10:43 AM CDT Pulse 117 07/25/2024 10:43 AM CDT Temperature 36.3 ??C (97.4 ??F) 07/25/2024 10:43 AM C DT Respiratory Rate 16 07/25/2024 10:43 AM CDT Oxygen Saturation 98% 07/25/2024 10:43 AM CDT Inhaled Oxygen Concentration - - [...] Assessment Author Patient declined 07/25/2024 3:04 PM CDT Charlie Padron RN * Within the last year, have you been afraid of your partner or ex-partner? Answer Date of Assessment Author Patient declined 07/25/2024 3:04 PM CDT Charlie Padron RN * Within the last year, have you been raped or forced to have any kind of sexual activity by your partner or ex-partner? Answer Date of Assessment Author Patient declined 07/25/2024 3:04 PM CDT Charlie Padron RN * Within the last year, have you been kicked, hit, slapped, or otherwise physically hurt by your partner or ex-partner? Answer Date of Assessment Author Patient declined 07/25/2024 3:04 PM CDT Charlie Padron RN * Question Answer Date of Assessment Author Q1: How often do you have a drink containing alcohol? Patient declined 07/25/2024 3:04 PM NELIAT Kiana Padron RN Q2: How many drinks containing alcohol do you have on a typical day when you are drinking? Patient declined 07/25/2024 3:04 PM NELIAT Kiana Padron RN Q3: How often do you have six or more drinks on one occasion? Patient declined 07/25/2024 3:04 PM CDT Kiana Padron RN documented as of this encounter Miscellaneous Notes * Interdisciplinary - Elías Petty RN - 07/25/2024 10:30 AM CDT Pt called this morning to get added to schedule for IVF due to dehydration, nausea vomiting. Pt wheeled to treatment room. Vitals obtained. Pt c/o of nausea, vomiting, and diarrhea for since Tuesday. Pt was admitted to [facility] and discharged yesterday. Pt is not feeling any better, unable to eat or drink. Labs drawn from port x1 attempt. Flushed easily with NS and with good blood return. Orders for 1L IVF and antiemetics placed per [facility]. Critical potassium 2.5 called to infusion center. Informed pt she will need potassium replacement but is too low receive in infusion center. Pt and mother verbalized understanding. Pt taken to ED for electrolyte replacement and telemetry monitoring. Report giv en to Candice in ED. documented in this encounter Plan of Treatment Upcoming Encounters Date Type Department Care Team (Enrike st Ronald Info) Description 11/15/2024 1:00 PM MIXER FOAM RUBBER Lab [facility] Laboratory Services [address] [place] [address] Markus Finley MD [address] [place] [address] 11/15/2024 2:00 PM MIXER FOAM RUBBER Appointment [facility] MRI [address] [place] [address] Markus Finley MD [address] [place] [address] Discharge Disposition: Discharged to home or Selfcare documented as of this encounter Procedures Procedure Name Priority Date/Time Associated Diagnosis Comments MANUAL DIFFERENTIAL STAT 07/25/2024 1 1:02 AM CDT Metastatic melanoma (HCC) CBC WITH AUTO DIFFERENTIAL STAT 07/25/2024 11:02 AM CDT Metastatic melanoma (HCC) THYROID STIMULATING HORMONE (TSH) STAT 07/25/2024 11:02 AM CDT Metastatic melanoma (HCC) MAGNESIUM (MG) STAT 07/25/2024 11:02 AM CDT Metastatic melanoma (HCC) CMP (COMPREHENSIVE METABOLIC PANEL) STAT 07/25/2024 11:02 AM CDT Metastatic melanoma (HCC) COMPLETE BLOOD COUNT (CBC) WITH DIFF STAT 07/25/2024 11:02 AM CDT Metastatic melanoma (HCC) documented in this encounter Results * MANUAL DIFFERENTIAL (07/25/2024 11:02 AM CDT) BANDS % 1.0 % 07/25/2024 11:29 AM CDT [facility] NEUTROPHILS % 72.0 47.0 - 73.0 % 07/25/2024 11:29 AM CDT [facility] LYMPHOCY[facility] % 19.0 18.0 - 42.0 % 07/25/2024 11:29 AM CDT [facility] MONOCYTES % 8.0 4.0 - 12.0 % 07/25/2024 11:29 AM CDT [facility] NEUTROPHILS ABSOLUTE 7.01 1.60 - 7.70 10(3)/[facility] 07/25/2024 11:29 AM CDT [facility] LYMPHOCYTES ABSOLUTE 1.82 1.30 - 3.20 10(3)/mcL 07/25/2024 11:29 AM CDT [facility] MONOCYTES ABSOLUTE 0.77 0.20 - 1.00 10(3)/[facility] 07/25/2024 11:29 AM CDT [facility] TOXIC GRANULATION 107/25/2024 11:29 AM CDT [facility] VACUOLATED PMN 107/25/2024 11:29 AM CDT [facility] LARGE PLATELETS 11:29 AM CDT [facility] RBC MORPH STATUS Normal 07/25/20 11:29 AM CDT [facility] Blood Sub-Q Port Venou s Access Device (Medi-Port, Implanted Port) / Unknown 07/25/2024 11:02 AM CDT 07/25/2024 11:02 AM CDT us Markus Finley MD HEMATOLOGY ORDERABLES Fi nal Result [facility] [address] [place] [address] * (ABNORMAL) CBC WITH AUTO DIFFERENTIAL (07/25/2024 11:02 AM CDT) WBC 9.60 4.00 - 12.00 10(3)/mcL 07/25/2024 11:29 AM CDT [facility] RBC 5.98(H) 3.80 - 5.30 10(6)/[facility] 07/25/2024 11:29 AM CDT [facility] HEMOGLOBIN (HGB) 17.6(H) 12.0 - 15.8 g/dL 07/25/2024 11:29 AM CDT [facility] HEMATOCRIT (HCT) 50.8(H) 36.0 - 47.0 % 07/25/2024 11:29 AM CDT [facility] MCV 84.9 82.0 - 96.0 fL 07/25/2024 11:29 AM CDT [facility] MCH 29.4 26.0 - 34.0 pg 07/25/2024 11:29 AM CDT [facility] MCHC 34.6 31.0 - 36.0 g/dL 07/25/2024 11:29 AM CDT [facility] PLATELET COUNT 401 140 - 440 10(3)/mcL 07/25/2024 11:29 AM CDT [facility] RDW 14.4 11.8 - 15.5 % 07/25/2024 11:29 AM CDT [facility] MPV 9.6(L) 9.7 - 12.4 fL 07/25/2024 11:29 AM CDT [facility] NRBC PER 100 WBC 0 07/25/2024 11:29 AM CDT [facility] RESULTS ARE CONSISTENT WITH PERIPHERAL SMEAR REVIEW Yes 07/25/2024 11:29 AM CDT [facility] Blood Sub-Q Port Venou s Access Device (Medi-Port, Implanted Port) / Unknown 07/25/2024 11:02 AM CDT 07/25/2024 11:02 AM CDT us Markus Finley MD HEMATOLOGY ORDERABLES Fi nal Result [facility] [address] [place] [address] * (ABNORMAL) THYROID STIMULATING HORMONE (TSH) (07/25/2024 11:02 AM CDT) TSH 135.164(H) 0.300 - 5.000 mIU/L 07/25/2024 12:22 PM CDT [facility] Blood Sub-Q Port Venou s Access Device (Medi-Port, Implanted Port) / Unknown 07/25/2024 11:02 AM CDT 07/25/2024 11:02 AM CDT Markus Finley MD CHEMISTRY ORDERABLES Fin al Result [facility] [address] [place] [address] * (ABNORMAL) CMP (COMPREHENSIVE METABOLIC PANEL) (07/25/2024 11:02 AM CDT) SODIUM 134(L) 136 - 145 mmol/L 07/25/2024 11:37 AM CDT [facility] POTASSIUM 2.5(LL) 3.5 - 5.1 mmol/L 07/25/2024 11:37 AM CDT [facility] CHLORIDE 93(L) 98 - 107 mmol/L 07/25/2024 11:37 AM CDT [facility] CO2, VENOUS 22 22 - 30 mmol/L 07/25/2024 11:37 AM CDT [facility] ANION GAP 21.5(H) <18.0 mmol/L 07/25/2024 11:37 AM CDT [facility] GLUCOSE 153(H) 70 - 99 mg/dL 07/25/2024 11:37 AM CDT [facility] BUN 30(H) 5 - 18 mg/dL 07/25/2024 11:37 AM CDT [facility] CREATININE, BLOOD 3.31(H) 0.60 - 1.00 mg/dL 07/25/2024 11:37 AM CDT [facility] BUN/CREATININE RATIO 9(L) 12 - 20 ratio 07/25/2024 11:37 AM CDT [facility] TOTAL PROTEIN 8.4(H) 6.3 - 8.2 g/dL 07/25/2024 11:37 AM T [facility] ALBUMIN 4.5 3.5 - 5.0 g/dL 07/25/2024 11:37 AM [facility] A/G RATIO 1.2 1.0 - 2.2 07/25/2024 11:37 AM [facility] CALCIUM 10.2 8.7 - 10.5 mg/dL 07/25/2024 11:37 AM [facility] T BILI 0.9 0.2 - 1.2 mg/dL 07/25/2024 11:37 AM [facility] SGOT (AST) 14 5 - 34 U/L 07/25/2024 11:37 AM [facility] SGPT (ALT) 45 0 - 55 U/L 07/25/2024 11:37 AM [facility] ALKALINE PHOSPHATASE 90 40 - 150 U/L 07/25/2024 11:37 AM [facility] IS THE PATIENT REQUIRED TO BE FASTING? No 07/25/2024 11:37 AM [facility] GFR, ESTIMATED 19(L) >=60 07/25/2024 11:37 AM [facility] Comment: Creatinine Clearance is the preferred criteria for selecting drug dose adjustments in renally impaired patients. ??The GFR is provided as additional pertinent clinical information. GFR is reported in mL/min/1.73 sq m. Calculation based on the Chronic Kidney Disease Epidemiology Collaboration (CKD- EPI) equation refit without adjustment for race. GFR, EST. 21(L) >=60 024 11:37 AM [facility] GFR, EST. NONAFRICAN 17(L) >=60 07/25/2024 11:37 AM [facility] Blood Sub-Q Port Venou s Access Device (Medi-Port, Implanted Port) / Unknown 07/25/2024 11:02 AM CDT 07/25/2024 11:02 AM CDT Markus Finley MD CHEMISTRY ORDERABLES Fin al Result Performing Organization Address City/[facility]/ZIP Co de Phone Number [facility] [address] [place] [address] * MAGNESIUM (MG) (07/25/2024 11:02 AM CDT) MAGNESIUM 2.1 1.6 - 2.6 mg/dL 07/25/2024 11:37 AM CDT [facility] Blood Sub-Q Port Venou s Access Device (Medi-Port, Implanted Port) / Unknown 07/25/2024 11:02 AM CDT 07/25/2024 11:02 AM CDT Markus Finley MD CHEMISTRY ORDERABLES Fin al Result Performing Organization Address [facility] Co de Phone Number [facility] [address] [place] [address] documented in this encounter Visit Diagnoses Diagnosis Metastatic melanoma (HCC)- Primary Melanoma of skin, site unspecified documented in this encounter Administered Medications Inactive Administered Medications - up to 3 most recent administrations Medication Order MAR Action Action Date Dose Rate Site 0.9 % sodium chloride solution at 999 mL/hr, Intravenous, ONCE, 1 dose, On Tue07/25/24 at 1100Indications:Metastatic melanoma (HCC) New Bag 07/25/2024 10:57 AM CDT 1,000 mL 999 mL/hr dexamethasone (DECADRON) injection 10 mg 10 mg, Intravenous, ONCE, 1 dose, On Tue07/25/24 at 1130Indications:Metastatic melanoma (HCC) Given 07/25/2024 11:16 AM CDT 10 mg ondansetron (ZOFRAN) injection 8 mg 8 mg, Intravenous, ONCE, 1 dose, On Tue07/25/24 at 1130Indications:Metastatic melanoma (HCC) Given 07/25/2024 11:14 AM CDT 8 mg documented in this encounter Care Teams Pattern Wheel Maker Relationship Specialty Start Date End Date Pritesh Chu MD [address] [place] [address] PCP - General Family Medicine 04/18/24 Markus Finley MD [address] [place] [address] Consulting Physician Medical Oncology 04/18/24 documented as of this encounter
--- OUTSIDE RECORDS SUMMARY | 2024-10-26 08:03 | XMS_ITS | Encounter Summary ---
Author Organization [employer] Care Team Providers Care Mower Sharpener Name Role Phone Pritesh Chu MD Primary Care Provider [phone] Markus Finley MD Unavailable [phone] Encounter Details Date Type Department Care Team (Latest Contact Info) Description 08/01/2024 Travel Social History Tobacco Use Types Packs/Day Years Used Date Smoking Tobacco: Former Cigarettes 0.5 8.5 S tarted: 04/18/2016 Smokeless Tobacco: Never Alcohol Use Standard Drinks/Week Comments Yes 0 (1 standard drink = 0.6 oz pur e alcohol) [facility] Utilities Answer Date Recorded In the past 12 months has [employer], gas, oil, or water [email or web address] threatened to shut off services in your home? Patient declined 08/01/2024 Social Connection and Isolation Panel [NHANES] A nswer Date Recorded In a typical week, how many times do you talk on the phone with family, friends, or neighbors? Patient declined 08/01/2024 How often do you get togethe r with friends or relatives? Patient declined 08/01/2024 How often do you attend pentecostal or spiritism serv ices? Patient declined 08/01/2024 Do you belong to any clubs o r organizations such as pentecostal groups, unions, fraternal or athletic groups, or [...] medical care, and heating? Patient declined 08/01/2024 [facility] of Occupat ional [facility] - Occupational Stress Questionnaire Answer Date [...] any time in the past 12 m [facility], were you homeless or living in a usp (including now)? Patient declined 08/01/2024 Comments No Sex and Gender Information Value Date Recorded Sex Assigned at Female 06/20/2024 8:39 AM CDT Legal Sex Female 9:04 AM CDT Gender Identity Female 06/20/2024 8:39 AM CDT Sexual Orientation Bisexual 06/20/2024 8: 39 AM CDT documented as of this encounter Functional Status * Audit-C Score Answer Date of Assessment Author -1 08/01/2024 5:03 PM Andrew Monte RN * Within the last year, have you been humiliated or emotionally abused in other ways by your partner or ex-partner? Answer Date of Assessment Author Patient declined 08/01/2024 5:03 PM Elliott Monte RN * Within the last year, have you been afraid of your partner or ex-partner? Answer Date of Assessment Author Patient declined 08/01/2024 5:03 PM Elliott Monte RN * Within the last year, have you been raped or forced to have any kind of sexual activity by your partner or ex-partner? Answer Date of Assessment Author Patient declined 08/01/2024 5:03 PM Elliott Monte, KRISTAL * Within the last year, have you been kicked, hit, slapped, or otherwise physically hurt by your partner or ex-partner? Answer Date of Assessment Author Patient declined 08/01/2024 5:03 PM Elliott Monte RN * Question Answer Date of Assessment Author Q1: How often do you have a drink containing alcohol? Patient declined 08/01/2024 5:03 PM Elliott Monte RN Q2: How many drinks containing alcohol do you have on a typical day when you are drinking? Patient declined 08/01/2024 5:03 PM Elliott Monte RN Q3: How often do you have six or more drinks on one occasion? Patient declined 08/01/2024 5:03 PM CDT Wilder, Elliott T , RN documented as of this encounter Plan of Treatment Upcoming Encounters Date Type Department Care Team (Late st Contact Info) Description 11/15/2024 1:00 PM LOSS PREVENTION REPRESENTATIVE [facility] [address] [place] [id number] Markus Finley MD [address] [place] [address] 11/15/2024 2:00 PM LOSS PREVENTION REPRESENTATIVE [facility] [address] [place] [phone] Markus Finley MD [address] [place] [address] Discharge Disposition: Discharged to home or Selfcare documented as of this encounter Visit Diagnoses Not on filedocumented in this encounter Additional Health Concerns Infection Onset Date Last Indicated Resolved Time C. difficile Rule-Out 08/01/2024 08/01/20242023 7:56 PM CDT documented as of this encounter Care Teams Mower Sharpener Relationship Specialty Start Date End Date Pritesh Chu MD [address] [address] PCP - General Family Medicine 04/18/24 Markus Finley MD [address] [place] [address] Consulting Physician Medical Oncology 04/18/24 documented as of this encounter
--- OUTSIDE RECORDS SUMMARY | 2024-10-26 08:03 | XMS_ITS | Encounter Summary ---
Author Organization [employer] Care Team Providers Care Nurse Consultant Name Role Phone Pritesh Chu MD Primary Care Provider [phone] Markus Finley MD Unavailable [phone] Encounter Details Date Type Department Care Team (Latest Contact Info) Description 08/13/2024 Travel Social History Tobacco Use Types Packs/Day Years Used Date Smoking Tobacco: Former Cigarettes 0.5 8.5 S tarted: 04/18/2016 Smokeless Tobacco: Never Alcohol Use Standard Drinks/Week Comments Yes 0 (1 standard drink = 0.6 oz pur e alcohol) [facility] Utilities Answer Date Recorded In the past 12 months has [employer], gas, oil, or water [employer] threatened to shut off services in [...] How often do you attend moravian or zoroastrian serv ices? Patient declined 08/01/2024 [...] medical care, and heating? Patient declined 08/01/2024 [facility] of Occupat ional [facility] - Occupational Stress Questionnaire Answer Date [...] time in the past 12 m [facility], were you homeless or living in a [...] st Contact Info) Description 11/15/2024 1:00 PM HUMAN MACHINE INTERFACE ENGINEER [facility] [address] [place] [address] Markus Finley MD [address] [place] [address] 11/15/2024 2:00 PM HUMAN MACHINE INTERFACE ENGINEER [facility] [address] [place] [address] Markus Finley MD [address] [place] [address] Discharge Disposition: Discharged to home or Selfcare documented as of this encounter Visit Diagnoses Not on filedocumented in this encounter Care Teams Nurse Consultant Relationship Specialty Start Date End Date Pritesh Chu MD [address] [address] PCP - General Family Medicine 04/18/24 Markus Finley MD [address] [place] [address] Consulting Physician Medical Oncology 04/18/24 documented as of this encounter
--- OUTSIDE RECORDS SUMMARY | 2024-10-26 08:03 | XMS_ITS | Encounter Summary ---
Author Organization [employer] Care Team Providers Care [facility] Name Role Phone Pritesh Chu MD Primary Care Provider [phone] Markus Finley MD Unavailable [phone] Encounter Details Date Type Department Care Team (Latest Contact Info) Description 08/20/2024 Travel Social History Tobacco Use Types Packs/Day Years Used Date Smoking Tobacco: Former Cigarettes 0.5 8.5 S tarted: 04/18/2016 Smokeless Tobacco: Never Alcohol Use Standard Drinks/Week Comments Yes 0 (1 standard drink = 0.6 oz pur e alcohol) [place] Utilities Answer Date Recorded In the past 12 months has [employer], gas, oil, or water [employer] threatened to shut off services in your home? Patient declined 08/01/2024 Social Connection and Isolation Panel [NHANES] A nswer Date Recorded In a typical week, how many times do you talk on the phone with family, friends, or neighbors? Patient declined 08/01/2024 How often do you get togethe r with friends or relatives? Patient declined 08/01/2024 How often do you attend anabaptism or worship serv ices? Patient declined 08/01/2024 Do you belong to any clubs o r organizations such as anabaptism groups, unions, fraternal or athletic groups, or [...] medical care, and heating? Patient declined 08/01/2024 [facility] of Occupat ional [facility] - Occupational Stress Questionnaire Answer Date [...] any time in the past 12 [facility], were you homeless or living in a [...] st Contact Info) Description 11/15/2024 1:00 PM NETWORK TECHNICIAN Lab [facility] [address] [place] [address] Markus Finley MD [address] [place] [address] 11/15/2024 2:00 PM NETWORK TECHNICIAN Appointment [facility] [address] [place] [address] Markus Finley MD [address] [place] [address] Discharge Disposition: Discharged to home or Selfcare documented as of this encounter Visit Diagnoses Not on filedocumented in this encounter Care Teams Regional [facility] Relationship Specialty Start Date End Date Pritesh Chu MD [address] [place] [address] PCP - General Family Medicine 04/18/24 Markus Finley MD [address] [place] [address] Consulting Physician Medical Oncology 04/18/24 documented as of this encounter
--- OUTSIDE RECORDS SUMMARY | 2024-10-26 08:03 | XMS_ITS | Encounter Summary ---
Author Organization [facility] Address [address] [place] [address] Phone Care Team Providers Care [employer] Name Role Phone Pritesh Chu MD Primary Care Provider [phone] Markus Finley MD Unavailable [phone] Reason for Visit * Reason Onset Date Comments Follow-up 08/01/2024 Encounter Details Date Type Department Care Team (Late st Contact Info) Description 08/01/2024 Post Discharge Follow-up [facility] [address] [place] [address] Arline Rojo, RN [place] Social History Tobacco Use Types Packs/Day Years Used Date Smoking Tobacco: Former Cigarettes 0.5 8.5 S tarted: 04/18/2016 Smokeless Tobacco: Never Alcohol Use Standard Drinks/Week Comments Yes 0 (1 standard drink = 0.6 oz pur e alcohol) [facility] Utilities Answer Date Recorded [...] declined 08/01/2024 How often do you attend sabianist or restorationist serv ices? Patient declined 08/01/2024 Do you belong to any clubs o r organizations such as sabianist groups, unions, fraternal or athletic groups, or [...] care, and heating? Patient declined 08/01/2024 [facility] of Occupat ional [facility] - Occupational Stress Questionnaire Answer Date [...] time in the past [address] [facility], were you homeless or living [...] Telephone Encounter - Arline Rojo RN - 08/01/2024 3:55 PM CDT Patient has been admitted to hospital prior to follow up call. documented in this encounter Plan of Treatment Upcoming Encounters Date Type Department Care Team (Late st Contact Info) Description 11/15/2024 1:00 PM HAND OR MACHINE PASTER Lab [facility] [address] [place] [address] Markus Finley MD [address] [place] [address] 11/15/2024 2:00 PM HAND OR MACHINE PASTER Appointment [facility] [address] [place] [address] Markus Finley MD [address] [place] [address] Discharge Disposition: Discharged to home or Selfcare documented as of this encounter Visit Diagnoses Not on filedocumented in this encounter Additional Health Concerns Infection Onset Date Last Indicated Resolved Time C. difficile Rule-Out 08/01/2024 08/01/20242023 7:56 PM CDT documented as of this encounter Care Teams [employer] Relationship Specialty Start Date End Date Pritesh Chu MD [address] [place] [address] PCP - General Family Medicine 04/18/24 Markus Finley MD [address] [place] [address] Consulting Physician Medical Oncology 04/18/24 documented as of this encounter
--- OUTSIDE RECORDS SUMMARY | 2024-10-26 08:03 | XMS_ITS | Encounter Summary ---
Author Organization [facility] Address [address] [place] [address] Phone Care Team Providers Care [employer] Name Role Phone Kellen Chu MD Primary Care Provider [phone] Markus Finley MD Unavailable [phone] Reason for Visit * Reason Comments Dehydration * Auth/Cert (Routine) Specialty Diagnoses / Procedures Referred By Contross t Referred To Contact Diagnoses Acute renal failure, unspecified acute renal failure type (HCC) Diarrhea, unspecified type Nausea and vomiting, unspecified vomiting type Lee Lan MD [address] [place] [address] Phone: tel: fax: Referral ID Status Reason Start Date Expiration Date Visits Re quested Visits Authorized [id number] 1 1 Encounter Details Date Type Department Care Team (Latest Contact Info) Description 08/01/2024 12:38 PM CDT - 08/03/2024 6:15 PM CDT Hospital Encounter [facility] Med Surg [address] [place] [id number] Graciela Jonas, PAC [address] [place] [address] Gael Morales MD [address] [place] [address] Lee Lan MD [address] [place] [address] Acute renal failure, unspecified acute renal failure type (HCC) Discharge Disposition[place] [facility] [place] Tobacco Use Types Packs/Day Years Used Date Smoking Tobacco: Former Cigarettes 0.5 8.5 S tarted: 04/18/2016 Smokeless Tobacco: Never Alcohol Use Standard Drinks/Week Comments Yes 0 (1 standard drink = 0.6 oz pur e alcohol) [facility] Utilities Answer Date Recorded In the past 12 months has [employer], gas, oil, or water [employer] threatened to shut off services in your home? Patient declined 08/01/2024 Social Connection and Isolation Panel [NHANES] A nswer Date Recorded In a typical week, how many times do you talk on the phone with family, friends, or neighbors? Patient declined 08/01/2024 How often do you get togethe r with friends or relatives? Patient declined 08/01/2024 How often do you attend religion or evangelical serv ices? Patient declined 08/01/2024 Do you [...] medical care, and heating? Patient declined 08/01/2024 [facility] - Occupational [...] any time in the past 12 m [facility], were you homeless or [...] Sign Reading Time Taken Comments Blood Pressure 149/87 08/03/2024 1:09 PM CDT Pulse 57 08/03/2024 1:09 PM CDT Temperature 36.4 ??C (97.5 ??F) 08/03/2024 1:09 PM CD T Respiratory Rate 16 08/03/2024 1:09 PM CDT Oxygen Saturation 100% 08/03/2024 1:09 PM CDT Inhaled Oxygen Concentration - - Weight 116.6 kg (257 lb) 08/01/2024 4:54 PM CDT Height 167.6 cm (5' 6 ) 08/01/2024 4:54 PM CDT Body Mass Index 41.48 08/01/2024 4:54 PM CDT documented in this encounter Functional Status * Audit-C Score Answer Date of Assessment Author -1 08/01/2024 5:03 PM CDT Andrew Malagon RN * Within the last year, have you been humiliated or emotionally abused in other ways by your partner or ex-partner? Answer Date of Assessment Author Patient declined 08/01/2024 5:03 PM CDT Bill Malagon RN * Within the last year, have you been afraid of your partner or ex-partner? Answer Date of Assessment Author Patient declined 08/01/2024 5:03 PM NELIAT Bill Malagon, KRISTAL * Within the last year, have you been raped or forced to have any kind of sexual activity by your partner or ex-partner? Answer Date of Assessment Author Patient declined 08/01/2024 5:03 PM NELIAT Bill Malagon, RN * Within the last year, have you been kicked, hit, slapped, or otherwise physically hurt by your partner or ex-partner? Answer Date of Assessment Author Patient declined 08/01/2024 5:03 PM NELIAT Bill Malagon, KRISTAL * Question Answer Date of Assessment Author Q1: How often do you have a drink containing alcohol? Patient declined 08/01/2024 5:03 PM Bill Monte RN Q2: How many drinks containing alcohol do you have on a typical day when you are drinking? Patient declined 08/01/2024 5:03 PM NELIAT Bill Malagon RN Q3: How often do you have six or more drinks on one occasion? Patient declined 08/01/2024 5:03 PM CDT Bill Malagon RN documented as of this encounter Discharge Summaries * Lee Lan MD - 08/03/2024 11:52 AM CDT Images from the original note were not included. [facility] DISCHARGE SUMMARY Name: Dayanara Hilton Age: 24 y.o. : 2000 Attending Physician: Lee Lan MD Admission Date/Time: 08/01/2024 Discharge Date: 08/03/2024 Primary Care Physician: KELLEN CHU MD Discharging Provider: Lee Lan MD INSTRUCTIONS FOR PHYSICIANS ON FOLLOW UP AFTER DISCHARGE: Follow-up Information Follow up With Specialties Details Why Contact Info Kellen Chu MD Family Medicine Call in 1 week(s) [address] [place] [address] [facility] Call in 1 week(s) [address] [facility] [address] Markus Finley MD Medical Oncology, Hematology, Internal Medicine Call in 1 week(s) [address] [facility] [address] Discharge Instructions: Discharge Condition: improved Disposition: [facility] Referral. Face to Face Encounter completed on [date/time] 08/03/[address] Lan Diet: Cardiac Diet Activity: activity as tolerated Primary Diagnosis: Acute renal failure, unspecified acute renal failure type (HCC) Principal Problem: Acute renal failure, unspecified acute renal failure type (HCC) Active Problems: Metabolic acidosis, increased anion gap Present on Admission: Acute renal failure, unspecified acute renal failure type (HCC) Metabolic acidosis, increased anion gap Admitting Diagnoses: Acute kidney injury HOSPITAL COURSE: Dayanara Hilton was admitted 08/01/2024 with Acute renal failure, unspecified acute renal failure type (HCC) . Dayanara Hilton is a 24 y.o. female who is known to me from his admission with melanoma of her left foot status post surgery with a skin graft in his undergoing immunotherapy with oncologist Dr. 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 He was treated with aggressive IV hydration and supplements and discharged home. Patient returned to the ED again for similar symptoms and was hospitalized from 07/25 through 07/30.She was diagnosed with acute renal failure and seen by final cigar and box examiner. Patient had a negative stool culture as well as a negative C diff sample. Has not been on any antibiotics over the past week. During this hospitalization she was started on high-dose steroids and discharged on a steroid taper to complete. Patient reports she started having diarrhea again and vomiting last night therefore she went in to see Dr. Finley and was immediately sent to [facility] ED for further evaluation. Laboratory data revealed a sodium 127, potassium 3.3, chloride 91, CO2 15, anion gap 24.3, BUN 29, creatinine 4.24, glu cose 157, calcium 10.6, magnesium 2.7, TSH 114.336, WBC 17.32, H&H 18.0/51.2, otherwise unremarkable.Started on aggressive IV hydration and admitted for further management. Creatinine trended down, patient improved clinically and was discharged home to follow-up with primary care physician in 1week and Oncology in 1-2 weeks. It was also advised to receive IV hydration at the infusion center per Oncology recommendation to prevent recurrent episodes of acute kidney injury. Surgeries performed during stay: * No surgery found * Consults: Treatment Team: Consulting Physician: Markus Finley MD; Consulting Physician: Urbano Quiñonez MD Exam Day of Discharge: Temp Av.1 ??F (36.7 ??C) Min: 97.9 ??F (36.6 ??C) Max: 98.9 ??F (37.2 ??C) BP Min: 124/67 Max: 143/93 Pulse Av.8 Min: 54 Max: 73 Heart Rate (Monitor) Av.7 Min: 46 Max: 82 Resp Av.8 Min: 18 Max: 20 SpO2 Av % Min: 97 % Max: 99 % BMI: Body mass index is 41.48 kg/m??. Exam: General: alert, morbid obesity, not in any distress Skin: Normal skin turgor, no rashes Head: Normocephalic, without obvious abnormality HEENT: PERRLA, sclera anicteric Neck: normal, supple, no thyromegaly Heart: regular rate and rhythm, S1, S2 normal, no murmur, click, rub or gallop Lungs: clear to auscultation bilaterally, no rhonchi or wheezes Abdominal: soft, non-tender; bowel sounds normal; no masses, no organomegaly Extremities: normal strength, tone, and muscle mass Neuro: oriented x3, CN II-XII intact Psychological: appropriate Lab / Imaging Review: Lab Results Component Value Date WBC 8.19 08/03/2024 HEMOGLOBIN 12.1 08/03/2024 HEMATOCRIT 35.4 (L) 08/03/2024 PLATELETCNT 225 08/03/2024 MCV 88.3 08/03/2024 Lab Results Component Value Date SODIUM 133 (L) 08/03/2024 POTASSIUM 5.1 08/03/2024 CHLORIDE 109 (H) 08/03/2024 CO2VEN 18 (L) 08/03/2024 ANIONGAP 11.1 08/03/2024 GLUCOSE 97 08/03/2024 BUN 18 08/03/2024 CREATININE 1.49 (H) 08/03/2024 BCRATIO8 12 08/03/2024 TOTALPROTEIN 9.0 (H) 08/01/2024 ALBUMIN 4.7 08/01/2024 CALCIUM 8.7 08/03/2024 TBIL 0.7 08/01/2024 SGOTAST 22 08/01/2024 SGPTALT 53 08/01/2024 ALKALINEPHO 85 08/01/2024 GFRNA 43 (L) 08/03/2024 GFRA 52 (L) 08/03/2024 No results found for: GLUCOSEPOCT Lab Results Component Value Date INR 1.1 06/27/2024 PTP 14.1 06/27/2024 Lab Results Component Value Date HGBA1C 5.5 07/24/2024 No results found for: [id number] No results found for: CPK , CPKI , CKMB , CKMBNI , CKMBPOCT , CKMBRELINDX , TROPONINI , POCTRP No results found for: FERRITIN No results found for: FOLATE No results found for: PHARTERIAL , PO2ART , XIB3NUQ , CO2ART , O2ART Lab Results Component Value Date LACTICA 1.3 07/23/2024 XR CHEST SINGLE VIEW PORTABLE Result Date: 08/01/2024 IMPRESSION: No acute cardiopulmonary abnormality. US RENAL COMPLETE Result Date: 07/27/2024 IMPRESSION: Normal kidneys. Debris within the bladder. Correlate with urinalysis. CT ABDOMEN PELVIS W/O CONTRAST Result Date: 07/25/2024 IMPRESSION: Fluid-filled colon, without wall thickening or pericolonic stranding. Findings can be seen in the setting of diarrheal illness. No bowel obstruction. No free air or free fluid. Pericardial effusion, slightly increased compared to prior study. Hypoattenuation adjacent to the falciform ligament within the liver, a site common for fatty infiltration though this is not definitively visualized on the recent CT study from 06/27/2024. Attention on surveillance imaging recommended. MRI can be considered for further evaluation as warranted on a clinical basis. Scattered mesenteric lymph nodes, stable to slightly diminished in size compared to the most recent CT examination. Continued imaging surveillance recommended. DISCHARGE MEDICATION LIST: Medication List START taking these medications polyethylene glycol 17 g Pack Commonly known as: GLYCOLAX, MIRALAX Take 1 Packet by mouth 2 times daily as needed for Constipation - 1st line. Dissolve in 4-8 oz of liquid. Indications: Constipation senna 8.6 MG Tabs Commonly known as: SENOKOT Take 1 Tablet by mouth 2 times daily as needed for Constipation - 2nd line. sodium chloride 0.9 % Soln 1,000 mL by Intravenous route continuous for 20 days. Patient to get 1000 mL of IV fluids normal saline daily via port. CHANGE how you take these medications * ondansetron 4 MG Tab-disperse Commonly known as: ZOFRAN-ODT Take 2 Tablets by mouth every 8 hours as needed for Nausea - 1st line. What changed: Another medication with the same name was added. Make sure you understand how and when to take each. * ondansetron 4 MG Tab-disperse Commonly known as: ZOFRAN-ODT Take 1 Tablet by mouth every 6 hours as needed for Nausea - 1st line. What changed: You were already taking a medication with the same name, and this prescription was added. Make sure you understand how and when to take each. predniSONE 50 MG Tabs Commonly known as: DELTASONE Take 2 Tablets by mouth daily for 30 days. What changed: medication strength how much to take Another medication with the same name was removed. Continue taking this medication, and follow the directions you see here. * This list has 2 medication(s) that are the same as other medications prescribed for you. Read thedirections carefully, and ask your doctor or other care provider to review them with you. CONTINUE taking these medications diphenoxylate-atropine 2.5-0.025 MG Tabs Commonly known as: LOMOTIL Take 1 Tablet by mouth 4 times daily as needed for Diarrhea. HYDROcodone-acetaminophen 5-325 MG Tabs Commonly known as: NORCO Take 1 Tablet by mouth every 4 hours as needed for Moderate or more severe pain. Junel Fe 24 1-20 MG-MCG(24) Tabs Generic drug: Norethin Wilfredo-Eth Estrad-FE levothyroxine 100 MCG Tabs Commonly known as: SYNTHROID Take 1 Tablet by mouth every morning (before breakfast) for 90 days. omeprazole 40 MG Cap-del-rel Commonly known as: PriLOSEC TAKE 1 CAPSULE BY MOUTH DAILY prochlorperazine 10 MG Tabs Commonly known as: COMPAZINE Take 1 Tablet by mouth every 6 hours as needed for Nausea - 2nd line. Zofran 4 MG Tabs Generic drug: ondansetron STOP taking these medications potassium chloride SA 20 MEQ Xni-fylf-hyo Commonly known as: KLORCON M Where to Get Your Medications Information about where to get these medications is not yet available Ask your nurse or doctor about these medications ondansetron 4 MG Tab-disperse polyethylene glycol 17 g Pack predniSONE 50 MG Tabs senna 8.6 MG Tabs sodium chloride 0.9 % Soln Time spent on interview, examination, final orders, recommendations, and care coordination for thishospital discharge: Greater than 30 minutes spent in coordinating care Thank you very much for allowing the [facility] Adult Hospitalist Service to participate in the care of this patient. If you have any questions, please don't hesitate to call. Signed: Lee Lan MD, 08/03/2024, 11:52 AM CDT documented in this encounter Medications at Time of Discharge [...] for 90 days. 90 Tablet 07/31/2024 4 ondansetron (ZOFRAN-ODT) 4 MG TABLET DISPERSIBLE Take [...] Constipation - 2nd line. 30 Tablet 08/03/2024 omeprazole (PriLOSEC) 40 MG CAPSULE DELAYED RELEASE TAKE 1 CAPSULE BY MOUTH DAILY 90 Capsule 06/25/2024 4 polyethylene glycol (GLYCOLAX, MIRALAX) 17 g PackIndications:C onstipation Take 1 Packet by mouth 2 times daily as needed for Constipation - 1st line. Dissolve in 4-8 oz of liquid. Indications: Constipation 90 Packet 08/03/2024 4 predniSONE (DELTASONE) 50 MG Tablet Take 2 Tablets by mouth daily for 30 days. 60 Tablet 08/03/2024 4 sodium chloride 0.9 % Solution 1,000 mL by Intravenous route continuous for 20 days. Patient to get 1000 mL of IV fluids normal saline daily via port. 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 @RACE@ female with a PMHx Metastatic melanoma and recent ALEXX is readmitted due to ALEXX and worsening N/V/D A 12 point review of systems is otherwise negative. The chart ,medications and allergies have been reviewed. OBJECTIVE: Vitals: 24hr Min/Max: Temp Min: 97.8 ??F (36.6 ??C) Max: 98.9 ??F (37.2 ??C) Pulse Min: 54 Max: 73 BP Min: 124/67 Max: 143/93 Resp Min: 16 Max: 20 SpO2 Min: 95 % Max: 99 % Most Recent: Vitals: 08/02/24 1600 08/02/24199908/03/24 0000 08/03/24 0500 BP: 124/67 136/85 128/76 (!) 143/93 Pulse: 55 54 55 73 Resp: 20 18 18 20 Temp: 97.9 ??F (36.6 ??C) 98.1 ??F (36.7 ??C) 97.9 ??F (36.6 ??C) 98.9 ??F (37.2 ??C) TempSrc: Tympanic Tympanic Tympanic SpO2: 97% 98% 98% 99% Weight: Height: I/O last 3 completed shifts: In: 2340 [P.O.:1020; I.V.:1220; IV Piggyback:100] Out: - I/O this shift: In: 750 [I.V.:750] Out: - Physical Exam: NAD, appropriate, alert No periorbital edema, oropharynx moist No thyromegaly HRRR without murmur Lungs B CTA without wheezes Abdomen benign without tenderness LE without edema No petechiae, purpura or livido No focal neurologic deficits Lab/Radiology/Diagnostic Review: Latest Reference Range & Units 08/02/24 04:36 08/03/24 04:32 SODIUM 136 - 145 mmol/L 129 (L) 133 (L) POTASSIUM 3.5 - 5.1 mmol/L 3.9 5.1 CHLORIDE 98 - 107 mmol/L 99 109 (H) CO2, VENOUS 22 - 30 mmol/L 19 (L) 18 (L) ANION GAP <18.0 mmol/L 14.9 11.1 BUN 5 - 18 mg/dL 29 (H) 18 CREATININE, BLOOD 0.60 - 1.00 mg/dL 2.79 (H) 1.49 (H) GFR, ESTIMATED >=60 24 (L) 50 (L) BUN/CREATININE RATIO 12 - 20 ratio 10 (L) 12 GLUCOSE 70 - 99 mg/dL 125 (H) 97 CALCIUM 8.7 - 10.5 mg/dL 9.2 8.7 (L): Data is abnormally low (H): Data is abnormally high Latest Reference Range & Units 08/02/24 04:36 08/03/24 04:32 WBC 4.00 - 12.00 10(3)/mcL 10.07 8.19 RBC 3.80 - 5.30 10(6)/mcL 4.89 4.01 HEMOGLOBIN (HGB) 12.0 - 15.8 g/dL 14.4 12.1 HEMATOCRIT 36.0 - 47.0 % 42.4 35.4 (L) MCV 82.0 - 96.0 fL 86.7 88.3 MCH 26.0 - 34.0 pg 29.4 30.2 MCHC 31.0 - 36.0 g/dL 34.0 34.2 PLATELET COUNT 140 - 440 10(3)/mcL 299 225 RDW 11.8 - 15.5 % 13.7 13.7 (L): Data is abnormally low Thank you for allowing me to participate in the care of your patient. Sincerely, Urbano Quiñonez M.D 6:42 AM CDT 08/03/2024 * Lee Lan MD - 08/02/2024 11:12 AM CDT [facility] INPATIENT DAILY PROGRESS NOTE Dayanara Hilton is a 24 y.o. female at Hospital LOS: 1 day Assessment: Active Hospital Problems Diagnosis Date Noted Acute renal failure, unspecified acute renal failure type (HCC) 08/01/2024 Metabolic acidosis, increased anion gap 08/01/2024 Resolved Hospital Problems No resolved problems to display. Vitals: 08/02/24 1204 08/02/24 1301 08/02/24 1501 08/02/24 1600 Temp: 97.9 ??F (36.6 ??C) 97.9 ??F (36.6 ??C) TempSrc: Tympanic Heart Rate (Monitor): 76 66 Pulse: 67 55 Resp: 18 20 BP: 133/84 124/67 Height: Weight: SpO2: 98% 97% O2 Device: None (Room air) Body mass index is 41.48 kg/m??. I/O last 3 completed shifts: In: 2059 [P.O.:340; I.V.:1620; IV Piggyback:100] Out: - Plan: Plan Assessment & Plan: Acute renal failure: Secondary to chronic diarrhea from immunotherapy, patient presented with creatinine of 4.27 had recurrent acute kidney injury secondary to diarrhea, plan to start on steroids andIV hydration on a daily basis. Currently on normal saline and creatinine trending down. 2.79 this morning Hyponatremia: Secondary to hypovolemia, sodium level 127-129 this morning continue IV hydration. Hypokalemia: Potassium 3.3 on admission, replete with potassium chloride. Hypothyroidism: Continue Synthroid. Melanoma of the left foot: Patient is following up with Oncology for immunotherapy status post surgery. VTE Prophylaxis: Lovenox 40mg Q24h Code Status: Code Status: Full Code Anticipated Disposition at discharge Home with no needs Expected discharge date: 08/04/2024 Subjective: Interval History: No acute events overnight. Patient does not complain of any new symptoms. Feels better, able to tolerate diet well. Review of Systems: A 14 point comprehensive review of systems was negative, except as documented in HPI. Intake/Output Summary (Last 24 hours) at 08/02/2024 1652 Last data filed at 08/02/2024 1400 Gross per 24 hour Intake 1540 ml Output -- Net 1540 ml Inpatient Scheduled Medications: diphenoxylate-atropine, 1 Tablet, 4x Daily enoxaparin, 40 mg, Q24H methylPREDNIsolone, 125 mg, Q12H Inpatient PRN Medications: acetaminophen, 650 mg, Q4H PRN calcium carbonate, 1,000 mg, Q8H PRN magnesium hydroxide, 30 mL, Daily PRN melatonin, 3 mg, Nightly PRN nicotine, 1 Patch, Daily PRN ondansetron, 4 mg, Q6H PRN Or ondansetron, 4 mg, Q6H PRN polyethylene glycol, 17 g, BID PRN senna, 1 Tablet, BID PRN Inpatient IV Infusions: 0.9% sodium chloride with potassium chloride 40 mEq/L, Last Rate: 150 mL/hr at 08/02/24 1634 Objective: Exam: General: alert, moderately built and nourished, not in any distress Skin: Normal skin turgor, no rashes Head: Normocephalic, without obvious abnormality HEENT: PERRLA, sclera anicteric Neck: normal, supple, no thyromegaly Heart: regular rate and rhythm, S1, S2 normal, no murmur, click, rub or gallop Lungs: clear to auscultation bilaterally, no rhonchi or wheezes Abdominal: soft, non-tender; bowel sounds normal; no masses, no organomegaly Extremities: normal strength, tone, and muscle mass Neuro: oriented x3, CN II-XII intact Psychological: appropriate Lab Results: No results found for: PHARTERIAL , PO2ART , [id number] , CO2ART , O2ART No results for input(s): BNP , BNPPOCT in the last 72 hours. Recent Labs Units 08/02/24 0436 08/01/24 1105 WBC 10(3)/mcL 10.07 17.32* HEMOGLOBIN g/dL 14.4 18.0* HEMATOCRIT % 42.4 51.2* PLATELETCNT 10(3)/mcL 299 472* MCV fL 86.7 84.1 No results for input(s): INR , PTP in the last 72 hours. Recent Labs Units 08/02/24 0436 08/01/24 1105 SODIUM mmol/L 129* 127* POTASSIUM mmol/L 3.9 3.3* CHLORIDE mmol/L 99 91* CO2VEN mmol/L 19* 15* ANIONGAP mmol/L 14.9 24.3* GLUCOSE mg/dL 125* 157* BUN mg/dL 29* 29* CREATININE mg/dL 2.79* 4.24* BCRATIO8 ratio 10* 7* TOTALPROTEIN g/dL -- 9.0* ALBUMIN g/dL -- 4.7 CALCIUM mg/dL 9.2 10.6* TBIL mg/dL -- 0.7 SGOTAST U/L -- 22 SGPTALT U/L -- 53 ALKALINEPHO U/L -- 85 GFRNA 21* 13* GFRA 25* 16* No results found for: CPK , CPKI , CKMB , CKMBNI , CKMBPOCT , CKMBRELINDX , TROPONINI , POCTRP No results found for: FOLATE Lab Results Component Value Date MAGNESIUM 2.7 (H) 08/01/2024 Lab Results Component Value Date LACTICA 1.3 07/23/2024 No results found for: [id number] No results found for: FERRITIN No results found for: GLUCOSEPOCT High Sensitivity Troponin: No results found for: HSTRP No results found for: DDIMER EKG: EKG 12 LEAD Result Date: 07/24/[address] & T wave abnormality, consider lateral ischemia Abnormal ECG No previous ECGs available Confirmed by Emily Hall ([id number]) on 07/24/2024 9:19:48 AM Imaging: No results found. By: Lee Lan MD, 08/02/2024 4:52 PM CDT documented in this encounter H&P Notes * Lee Lan MD - 08/01/2024 2:32 PM CDT [facility] ADMISSION HISTORY & PHYSICAL HPI: Dayanara Hilton is a 24 y.o. female who is known to me from his admission with melanoma of her left foot status post surgery with a skin graft in his undergoing immunotherapy with oncologist Dr. 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 [facility] 9173 intractable nausea vomiting with diarrhea causing dehydration. He was treated with aggressive IV hydration and supplements and discharged home. Patient returned to the ED again for similar symptoms and was hospitalized from 07/25 through 07/30.She was diagnosed with acute renal failure and seen by final cigar and box examiner. Patient had a negative stool culture as well as a negative C diff sample. Has not been on any antibiotics over the past week. During this hospitalization she was started on high-dose steroids and discharged on a steroid taper to complete. Patient reports she started having diarrhea again and vomiting last night therefore she went in to see Dr. Finley today and was immediately sent to [facility] for further evaluation. Laboratory data revealed a sodium 127, potassium 3.3, chloride 91, CO2 15, anion gap 24.3, BUN 29, creatinine 4.24, glucose 157, calcium 10.6, magnesium 2.7, TSH 114.336, WBC 17.32, H&H 18.0/51.2, otherwise unremarkable. Started on aggressive IV hydration and admitted for further management. Allergies: has No Known Allergies. Home Medications: Prior to Admission Medications Prescriptions Last Dose Informant Patient Reported? Taking? HYDROcodone-acetaminophen (NORCO) 5-325 MG Tablet No No Sig: Take 1 Tablet by mouth every 4 hours as needed for Moderate or more severe pain. 1-20 MG-MCG(24) Tablet Yes No Sig: Take 1 Tablet by mouth daily. diphenoxylate-atropine (LOMOTIL) 2.5-0.025 MG Tablet No No Sig: Take 1 Tablet by mouth 4 times daily as needed for Diarrhea. levothyroxine (SYNTHROID) 100 MCG Tablet No No Sig: Take 1 Tablet by mouth every morning (before breakfast) for 90 days. omeprazole (PriLOSEC) 40 MG CAPSULE DELAYED RELEASE No No Sig: TAKE 1 CAPSULE BY MOUTH DAILY ondansetron (ZOFRAN-ODT) 4 MG TABLET DISPERSIBLE No No Sig: Take 2 Tablets by mouth every 8 hours as needed for Nausea - 1st line. ondansetron (Zofran) 4 MG Tablet Yes No Sig: Take 4 mg by mouth every 8 hours as needed for Nausea - 1st line. potassium chloride SA (KLORCON M) 20 MEQ Tablet Controlled Release No No Sig: Take 2 Tablets by mouth 2 times daily. predniSONE (DELTASONE) 20 MG Tablet No No Sig: Take 4 Tablets by mouth daily. predniSONE (DELTASONE) 50 MG Tablet No No Sig: Take 2 Tablets by mouth daily for 7 days. Taper regimen prochlorperazine (COMPAZINE) 10 MG Tablet No No Sig: Take 1 Tablet by mouth every 6 hours as needed for Nausea - 2nd line. Facility-Administered Medications: None Past Medical History: She has a past medical history of Depression, Melanoma (HCC), Miscarriage (07/09/2022), Miscarriage (12/2022), Non-alcoholic fatty liver disease, and Obesity. Surgical History: has a past surgical history that includes Appendectomy (2005); Skin Graft (08/25/2023); and ONC Access Portacath. Social History: reports that she has quit smoking. Her smoking use included cigarettes. She startedsmoking about 8 years ago. She has a 4.1 pack-year smoking history. She has never used smokeless tobacco. She reports current alcohol use. She reports that she does not currently use drugs after having used the following drugs: Marijuana. Family History: family history includes Chronic Obstructive Pulmonary Disease in her father; Prostate Cancer in her father. Review of Systems: Reports diarrhea and intractable N/V. Denies lightheaded, dizziness blurred vision. Denies Fever, chills, SOB, cough, sore throat. Denies Chest pain, heart palpitations. Denies abdominal pain, deniesconstipation, Denies nausea, vomiting, diarrhea, or constipation. Denies LE swelling. Physical Exam: VITALS:Temp Av.6 ??F (36.4 ??C) Min: 97.4 ??F (36.3 ??C) Max: 97.8 ??F (36.6 ??C) BP Min: 102/83 Max: 112/78 Pulse Av.1 Min: 99 Max: 126 Heart Rate (Monitor) Av Min: 123 Max: 123 Resp Av Min: 16 Max: 18 SpO2 Av.3 % Min: 94 % Max: 100 % No intake/output data recorded. Weight: Wt Readings from Last 1 Encounters: 08/01/24 257 lb (116.6 kg) General: well developed well nourished, alert, oriented and in no acute distress Skin: normal coloration and turgor, no rashes HEENT: normocephalic, atraumatic. Pupils equal, round and reactive to light. Extraocular movements intact. Oronasopharynx pink and moist, no lesion or exudate. Neck: Supple. No JVD, lymphadenopathy thyromegaly or carotid bruits auscultated CVS: RRR, S1/S2 normal, no murmurs, gallops or rubs Chest: clear to auscultation, no wheezes, rales or rhonchi, symmetric air entry and normal respiratory effort Abdominal: soft, nontender, nondistended. Positive Bowel sounds, no organomegaly appreciated Extremities: no edema, no clubbing or cyanosis Neuro: Alert and orient x 3. Moves all extremities well. No neurological deficits noted on exam. Gait not tested Data Review: US RENAL COMPLETE Result Date: 07/27/2024 IMPRESSION: Normal kidneys. Debris within the bladder. Correlate with urinalysis. CT ABDOMEN PELVIS W/O CONTRAST Result Date: 07/25/2024 IMPRESSION: Fluid-filled colon, without wall thickening or pericolonic stranding. Findings can be seen in the setting of diarrheal illness. No bowel obstruction. No free air or free fluid. Pericardial effusion, slightly increased compared to prior study. Hypoattenuation adjacent to the falciform ligament within the liver, a site common for fatty infiltration though this is not definitively visualized on the recent CT study from 06/27/2024. Attention on surveillance imaging recommended. MRI can be considered for further evaluation as warranted on a clinical basis. Scattered mesenteric lymph nodes, stable to slightly diminished in size compared to the most recent CT examination. Continued imaging surveillance recommended. Lab Results Component Value Date WBC 17.32 (H) 08/01/2024 HEMOGLOBIN 18.0 (H) 08/01/2024 HEMATOCRIT 51.2 (H) 08/01/2024 PLATELETCNT 472 (H) 08/01/2024 MCV 84.1 08/01/2024 Lab Results Component Value Date SODIUM 127 (L) 08/01/2024 POTASSIUM 3.3 (L) 08/01/2024 CHLORIDE 91 (L) 08/01/2024 CO2VEN 15 (L) 08/01/2024 ANIONGAP 24.3 (H) 08/01/2024 GLUCOSE 157 (H) 08/01/2024 BUN 29 (H) 08/01/2024 CREATININE 4.24 (H) 08/01/2024 BCRATIO8 7 (L) 08/01/2024 TOTALPROTEIN 9.0 (H) 08/01/2024 ALBUMIN 4.7 08/01/2024 CALCIUM 10.6 (H) 08/01/2024 TBIL 0.7 08/01/2024 SGOTAST 22 08/01/2024 SGPTALT 53 08/01/2024 ALKALINEPHO 85 08/01/2024 GFRNA 13 (L) 08/01/2024 GFRA 16 (L) 08/01/2024 No results found for: PHARTERIAL , PO2ART , LEN6CFX , CO2ART , O2ART No results found for: CPK , CPKI , CKMB , CKMBNI , CKMBPOCT , CKMBRELINDX , TROPONINI , POCTRP Lab Results Component Value Date AMYL 21 (L) 06/27/2024 Lab Results Component Value Date LIPASE 36 06/27/2024 No results found for: CHOLESTEROL , TRIGLYCRIDES , HDLCHOLESTE , LDL Assessment/Plan Patient Active Problem List Diagnosis Iron deficiency anemia due to chronic blood loss Metastatic melanoma (HCC) Ringworm Abnormal TSH Hypokalemia due to excessive gastrointestinal loss of potassium GERD (gastroesophageal reflux disease) Functional diarrhea Hypotension due to drugs Diarrhea due to drug Immunotherapy Dizziness Dehydration Morbid obesity (HCC) Non-alcoholic fatty liver disease Miscarriage Miscarriage Melanoma (HCC) Depression Pericardial effusion Hypothyroidism Acute renal failure, unspecified acute renal failure type (HCC) Metabolic acidosis, increased anion gap Plan: Acute renal failure-due to profound dehydration Chronic 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 D/t steroid induced vs infectious Wbc 17.32, started on iv Flagyl for now Melanoma to left foot Treated with surgery and immunotherapy Will add high dose steroids (solumedrol 125mg bid ) Depression Resume home meds when taking po NAFLD LFTs are stable. Advance Care Planning: Aggregate face to face time discussing end of life advance care planning with patient and/or family and/or Power of Art Education Professor approximately 16 minutes. Discussed CPR/Intubation/Treatment Goals/Quality of life/Intensity of Care. Patient desires: Full Code VTE Prophylaxis: Lovenox 40mg Q24h Treatment Team: Consulting Physician: Markus Finley MD Thank you very much for allowing the [facility] Adult [facility] to participate in the care of this patient By: Esteban Mcgovern APRN, CNP, 08/01/2024, 2:32 PM CDT Primary Care Physician: KELLEN CHU MD documented in this encounter Consult Notes * Urbano Quiñonez MD - 08/02/2024 8:19 AM CDTAssociated Order(s): IP CONSULT TO NEPHROLOGY Nephrology Consult [facility] Reason for Consult: @NEPHROCONSULTREASON@ Requesting Provider: Lee Lan MD ASSESSMENT: ALEXX-Probably Prerenal and Immunotherapy SE Immunotherapy colitis Proteinuria Hematuria Hypokalemia Hyponatremia Pericardial effusion Dehydration Malignant metastatic Melanoma on immunotherapy-LD 07/17/2024 GERD PLAN: Probably pre-renal as profoundly hemo-concentrated and has significant renal function improvement with parenteral fluids. Continue steroids as per Heme/Onc. K is repleted. Will need IVF hydration at infusion ctr as outpatient planned prior to discharge to avoid re-admissions. No indication for renal biopsy at this time Repeat UA/uACR with AM Labs Get T3/T4 as TSH is elevated,defer to primary team Please trend I/O HPI: Dayanara Hilton is a 24 y.o. @RACE@ female with a PMHx Metastatic melanoma and recent ALEXX is readmitted due to ALEXX and worsening N/V/D Review of Systems: a 12 point review of systems is otherwise negative. Past Medical History: Past Medical History Positives Diagnosis Date Depression Melanoma (HCC) Miscarriage 07/09/2022 Miscarriage 12/2022 Non-alcoholic fatty liver disease Obesity Allergies: No Known Allergies Medications: Current Facility-Administered Medications: 0.9% sodium chloride with potassium chloride 40 mEq/L infusion, , Intravenous, Continuous, Esteban Mcgovern APRN, CNP, Last Rate: 150 mL/hr at 08/02/24 0947, New Bag at 08/02/24 0947 acetaminophen (TYLENOL) tablet 650 mg, 650 mg, Oral, Q4H PRN, Esteban Mcgovern APRN, CNP calcium carbonate (TUMS) chewable tablet 1,000 mg, 1,000 mg, Oral, Q8H PRN, Esteban Mcgovern APRN, CNP diphenoxylate-atropine (LOMOTIL) 2.5-0.025 MG per tablet 1 Tablet, 1 Tablet, Oral, 4x Daily, Esteban Mcgovern APRN, CNP, 1 Tablet at 08/02/24 0939 enoxaparin (LOVENOX) injection 40 mg, 40 mg, Subcutaneous, Q24H, Esteban Mcgovern APRN, CNP magnesium hydroxide (MILK OF MAGNESIA) 400 MG/5ML suspension 30 mL, 30 mL, Oral, Daily PRN, Esteban Mcgovern APRN, CNP melatonin tablet 3 mg, 3 mg, Oral, Nightly PRN, Esteban Mcgovern APRN, CNP methylPREDNISolone Na Suc (PF) (Solu-MEDROL) injection 125 mg, 125 mg, Intravenous, Q12H, Esteban Mcgovern APRN, CNP, 125 mg at 08/02/24 0940 metroNIDAZOLE (FLAGYL) IV 500 mg, 500 mg, Intravenous, Q8H, Gael Morales MD, Stopped at 08/02/24 0604 nicotine (NICODERM CQ) 21 MG/24HR patch 1 Patch, 1 Patch, Transdermal, Daily PRN, Esteban Mcgovern APRN, HARISH ondansetron (ZOFRAN-ODT) disintegrating tablet 4 mg, 4 mg, Oral, Q6H PRN OR ondansetron (ZOFRAN) injection 4 mg, 4 mg, Intravenous, Q6H PRN, Esteban Mcgovern APRN, HARISH, 4 mg at 08/01/24 2204 polyethylene glycol (GLYCOLAX, MIRALAX) packet 17 g, 17 g, Oral, BID PRN, Esteban Mcgovern APRN, HARISH senna (SENOKOT) tablet 8.6 mg, 1 Tablet, Oral, BID PRN, Esteban Mcgovern APRN, HARISH Family History: Family History Problem Relation Age of Onset Prostate Cancer Father Chronic Obstructive Pulmonary Disease Father Social History: Social History Tobacco Use Smoking status: Former Current packs/day: 0.50 Average packs/day: 0.5 packs/day for 8.3 years (4.1 ttl pk-yrs) Types: Cigarettes Start date: 04/18/2016 Smokeless tobacco: Never Substance Use Topics Alcohol use: Yes OBJECTIVE: Vitals: 24hr Min/Max: Temp Min: 96.8 ??F (36 ??C) Max: 97.8 ??F (36.6 ??C) Pulse Min: 70 Max: 126 BP Min: 102/83 Max: 142/82 Resp Min: 16 Max: 20 SpO2 Min: 94 % Max: 100 % Most Recent: Vitals: 08/01/24202108/02/24 0000 08/02/24 0400 08/02/24 0751 BP: 114/63 142/82 134/75 Pulse: 70 71 Resp: 18 20 16 Temp: 97.4 ??F (36.3 ??C) 97.7 ??F (36.5 ??C) 97.8 ??F (36.6 ??C) TempSrc: Tympanic Tympanic SpO2: 94% 97% 100% 98% Weight: Height: I/O last 3 completed shifts: In: 2059 [P.O.:340; I.V.:1620; IV Piggyback:100] Out: - I/O this shift: In: 120 [P.O.:120] Out: - Physical Exam: NAD, appropriate, alert No periorbital edema, oropharynx moist No thyromegaly HRRR without murmur Lungs B CTA without wheezes Abdomen benign without tenderness LE without edema No petechiae, purpura or livido No focal neurologic deficits Lab/Radiology/Diagnostic Review: Latest Reference Range & Units 08/01/24 11:05 08/02/24 04:36 SODIUM 136 - 145 mmol/L 127 (L) 129 (L) POTASSIUM 3.5 - 5.1 mmol/L 3.3 (L) 3.9 CHLORIDE 98 - 107 mmol/L 91 (L) 99 CO2, VENOUS 22 - 30 mmol/L 15 (L) 19 (L) ANION GAP <18.0 mmol/L 24.3 (H) 14.9 BUN 5 - 18 mg/dL 29 (H) 29 (H) CREATININE, BLOOD 0.60 - 1.00 mg/dL 4.24 (H) 2.79 (H) GFR, ESTIMATED >=60 14 (L) 24 (L) BUN/CREATININE RATIO 12 - 20 ratio 7 (L) 10 (L) GLUCOSE 70 - 99 mg/dL 157 (H) 125 (H) CALCIUM 8.7 - 10.5 mg/dL 10.6 (H) 9.2 MAGNESIUM,SERUM 1.6 - 2.6 mg/dL 2.7 (H) TOTAL PROTEIN 6.3 - 8.2 g/dL 9.0 (H) (L): Data is abnormally low (H): Data is abnormally high Thank you for allowing me to participate in the care of your patient. Sincerely, Urbano Quiñonez M.D 8:19 AM CDT 08/02/2024 documented in this encounter ED Notes * Coral Santana RN - 08/01/2024 4:15 PM CDT Patient transferred to room 241-1 per stretcher by this this nurse at this time. Assessment unchanged. Belongings with patient. VSS; IVFs infusing upon transfer. [facility] [address] informed of transfer. * Coral Santana RN - 08/01/2024 3:53 PM CDT Pt medicated per provider orders. Pt educated on intended effects and side effects of medication and verbalized understanding, able to provide teach back of education. * Coral Santana RN - 08/01/2024 2:28 PM CDT No change since triage, see triage note. Assessment as documented. Will monitor. * Gael Morales MD - 08/01/2024 2:16 PM CDTAssociated Order(s): Critical Care Chief Complaint Patient presents with Dehydration 24 year old female with a history of metastatic melanoma presents with diffuse diarrhea nausea and vomiting. Patient was recently hospitalized with similar symptoms that were attributed to her immunotherapy. She last received immunotherapy on July 17. She was hospitalized for several days and released on Tuesday. She was sent home with oral prednisone. Over the past 24 hours the vomiting has returned she has been unable to take her prednisone. Diarrhea it was also returned she reports that she was constantly going. During the hospitalization she was checked for C diff and negative. CT abdomen was unremarkable. She had improvement in her creatinine by the time of discharge but now all symptoms have returned. She was seen in the oncology clinic today and repeat lab testing shows that her creatinine level has jumped up considerably. Denies any fevers and only has a abdominal pain prior to having the diarrhea. Currently she was no abdominal pain. The history is provided by the patient. Dehydration Current Facility-Administered Medications Medication Dose Route Frequency Provider Last Rate Last Admin 0.9% sodium chloride with potassium chloride 40 mEq/L infusion Intravenous Once Gael Morales MD diphenoxylate-atropine (LOMOTIL) 2.5-0.025 MG per tablet 1 Tablet 1 Tablet Oral 4x Daily Esteban Mcgovern, BORDER PATROL OFFICER, PRODUCTION TOOL ENGINEER metroNIDAZOLE (FLAGYL) IV 500 mg 500 mg Intravenous Q8H Gael Morales MD sodium chloride 0.9 % 1,000 mL IV bolus Intravenous Once Gael Morales MD 2,000 mL/hr at 08/01/24 1353 New Bag at 08/01/24 1353 Current Outpatient Medications Medication Sig Dispense Refill diphenoxylate-atropine (LOMOTIL) 2.5-0.025 MG Tablet Take 1 Tablet by mouth 4 times daily as neededfor Diarrhea. 60 Tablet 2 HYDROcodone-acetaminophen (NORCO) 5-325 MG Tablet Take 1 Tablet by mouth every 4 hours as needed for Moderate or more severe pain. 20 Tablet 0 Junel Fe 24 1-20 MG-MCG(24) Tablet Take 1 Tablet by mouth daily. levothyroxine (SYNTHROID) 100 MCG Tablet Take 1 Tablet by mouth every morning (before breakfast) for 90 days. 90 Tablet 0 omeprazole (PriLOSEC) 40 MG CAPSULE DELAYED RELEASE TAKE 1 CAPSULE BY MOUTH DAILY 90 Capsule 0 ondansetron (Zofran) 4 MG Tablet Take 4 mg by mouth every 8 hours as needed for Nausea - 1st line. ondansetron (ZOFRAN-ODT) 4 MG TABLET DISPERSIBLE Take 2 Tablets by mouth every 8 hours as needed for Nausea - 1st line. 30 Tablet 1 potassium chloride SA (KLORCON M) 20 MEQ Tablet Controlled Release Take 2 Tablets by mouth 2 times daily. 90 Tablet 0 predniSONE (DELTASONE) 20 MG Tablet Take 4 Tablets by mouth daily. 90 Tablet 2 predniSONE (DELTASONE) 50 MG Tablet Take 2 Tablets by mouth daily for 7 days. Taper regimen 14 Tablet 0 prochlorperazine (COMPAZINE) 10 MG Tablet Take 1 Tablet by mouth every 6 hours as needed for Nausea- 2nd line. 30 Tablet 1 Facility-Administered Medications Ordered in Other Encounters Medication Dose Route Frequency Provider Last Rate Last Admin 0.9 % sodium chloride with potassium chloride 20 mEq/L infusion Intravenous Continuous Markus Finley MD Stopped at 08/01/24 1215 No Known Allergies Past Medical History Positives Diagnosis Date Depression Melanoma (HCC) Miscarriage 07/09/2022 Miscarriage 12/2022 Non-alcoholic fatty liver disease Obesity Past Surgical History: Procedure Laterality Date APPENDECTOMY 2006 ONC ACCESS PORTACATH SKIN GRAFT 08/25/2023 Social History Socioeconomic History Marital status: Single Spouse name: Not on file Number of children: Not on file Years of education: Not on file Highest education level: Not on file Occupational History Not on file Tobacco Use Smoking status: Former Current packs/day: 0.50 Average packs/day: 0.5 packs/day for 8.3 years (4.1 ttl pk-yrs) Types: Cigarettes Start date: 04/18/2016 Smokeless tobacco: Never Vaping Use Vaping status: Never Used Substance and Sexual Activity Alcohol use: Yes Drug use: Not Currently Types: Marijuana Sexual activity: Not on file Other Topics Concern Not on file Social History Narrative Not on file Social Determinants of Health Financial Resource Needs: Patient Declined (07/25/2024) Overall Financial Resource Strain (CARDIA) Difficulty of Paying Living Expenses: Patient declined Food Insecurity Needs: Patient Declined (07/25/2024) Hunger Vital Sign Worried About Running Out of Food in the Last Year: Patient declined Ran Out of Food in the Last Year: Patient declined Transportation Needs: Patient Declined (07/25/2024) PRAPARE - Transportation Lack of Transportation (Medical): Patient declined Lack of Transportation (Non-Medical): Patient declined Physical Activity: Patient Declined (07/25/2024) Exercise Vital Sign Days of Exercise per Week: Patient declined Minutes of Exercise per Session: Patient declined Stress: Patient Declined (07/25/2024) [employer] [place] [employer] - Occupational Stress Questionnaire Feeling of Stress : Patient declined Recent Concern: Stress - Stress Concern Present (06/27/2024) [employer] [place] [employer] - Occupational Stress Questionnaire Feeling of Stress : To some extent Social Integration: Patient Declined (07/25/2024) Social Connection and Isolation Panel [NHANES] Frequency of Communication with Friends and Family: Patient declined Frequency of Social Gatherings with Friends and Family: Patient declined Attends Mandaen Services: Patient declined Active Member of Clubs [...] More than three times a week Attends Mandaen Services: Never Active Member of Clubs or Organizations: No Attends Club or Organization Meetings: Never Marital Status: Never Intimate Partner Violence: Patient Declined (07/25/2024) Humiliation, Afraid, Rape, and Kick questionnaire Fear of Current or Ex-Partner: Patient declined Emotionally Abused: Patient declined Physically Abused: Patient declined Sexually Abused: Patient declined Housing Stability: Patient Declined (07/25/2024) Housing Stability Vital Sign Unable to Pay for Housing in the Last Year: Patient declined Number of Times Moved in the Last Year: 1 Homeless in the Last Year: Patient declined BP 112/90 Pulse (!) 123 Temp 97.4 ??F (36.3 ??C) (Tympanic) Resp 16 Ht 5' 6 (1.676 m) Wt257 lb (116.6 kg) LMP 07/02/2024 SpO2 100% BMI 41.48 kg/m?? Review of Systems All other systems reviewed and are negative. Physical Exam Vitals and nursing note reviewed. Constitutional: Comments: Patient was awake alert and is in no pain distress. She was mentating well. HENT: Head: Normocephalic and atraumatic. Nose: Nose normal. Mouth/Throat: Mouth: Mucous membranes are moist. Eyes: Extraocular Movements: Extraocular movements intact. Conjunctiva/sclera: Conjunctivae normal. Cardiovascular: Rate and Rhythm: Normal rate and regular rhythm. Pulmonary: Effort: Pulmonary effort is normal. Abdominal: General: There is no distension. Palpations: Abdomen is soft. Tenderness: There is no abdominal tenderness. Musculoskeletal: General: No swelling. Normal range of motion. Cervical back: Normal range of motion. Skin: General: Skin is warm and dry. Capillary Refill: Capillary refill takes less than 2 seconds. Coloration: Skin is pale. Skin is not jaundiced. Neurological: General: No focal deficit present. Mental Status: She is alert and oriented to person, place, and time. Psychiatric: Mood and Affect: Mood normal. Behavior: Behavior normal. Critical Care Performed by: Gael Morales MD Authorized by: Gael Morales MD Critical care provider statement: Critical care time (minutes): 35 Critical care was necessary to treat or prevent imminent or life-threatening deterioration of the following conditions: Renal failure Critical care was time spent personally by me on the following activities: Development of treatmentplan with patient or surrogate, discussions with consultants, discussions with primary provider, evaluation of patient's response to treatment, examination of patient, obtaining history from patient or surrogate, ordering and performing treatments and interventions, ordering and review of radiographic studies, ordering and review of laboratory studies, re- evaluation of patient's condition and review of old charts I assumed direction of critical care for this patient from another provider in my specialty: no Care discussed with: admitting provider Recent Results (from the past 24 hour(s)) MAGNESIUM (MG) Result Value Ref Range MAGNESIUM 2.7 (H) 1.6 - 2.6 mg/dL CMP (COMPREHENSIVE METABOLIC PANEL) Result Value Ref Range SODIUM 127 (L) 136 - 145 mmol/L POTASSIUM 3.3 (L) 3.5 - 5.1 mmol/L CHLORIDE 91 (L) 98 - 107 mmol/L CO2, VENOUS 15 (L) 22 - 30 mmol/L ANION GAP 24.3 (H) <18.0 mmol/L GLUCOSE 157 (H) 70 - 99 mg/dL BUN 29 (H) 5 - 18 mg/dL CREATININE, BLOOD 4.24 (H) 0.60 - 1.00 mg/dL BUN/CREATININE RATIO 7 (L) 12 - 20 ratio TOTAL PROTEIN 9.0 (H) 6.3 - 8.2 g/dL ALBUMIN 4.7 3.5 - 5.0 g/dL A/G RATIO 1.1 1.0 - 2.2 CALCIUM 10.6 (H) 8.7 - 10.5 mg/dL T BILI 0.7 0.2 - 1.2 mg/dL SGOT (AST) 22 5 - 34 U/L SGPT (ALT) 53 0 - 55 U/L ALKALINE PHOSPHATASE 85 40 - 150 U/L IS THE PATIENT REQUIRED TO BE FASTING? No GFR, ESTIMATED 14 (L) >=60 GFR, EST. 16 (L) >=60 GFR, EST. NONAFRICAN 13 (L) >=60 THYROID STIMULATING HORMONE (TSH) Result Value Ref Range TSH 114.336 (H) 0.300 - 5.000 mIU/L CBC WITH AUTO DIFFERENTIAL Result Value Ref Range WBC 17.32 (H) 4.00 - 12.00 10(3)/mcL RBC 6.09 (H) 3.80 - 5.30 10(6)/mcL HEMOGLOBIN (HGB) 18.0 (H) 12.0 - 15.8 g/dL HEMATOCRIT (HCT) 51.2 (H) 36.0 - 47.0 % MCV 84.1 82.0 - 96.0 fL MCH 29.6 26.0 - 34.0 pg MCHC 35.2 31.0 - 36.0 g/dL PLATELET COUNT 472 (H) 140 - 440 10(3)/mcL RDW 13.8 11.8 - 15.5 % MPV 9.8 9.7 - 12.4 fL NEUTROPHILS 86.8 (H) 47.0 - 73.0 % LYMPHOCYTES 8.5 (L) 18.0 - 42.0 % MONOCYTES 4.0 4.0 - 12.0 % EOSINOPHILS 0.1 0.0 - 5.0 % BASOPHILS 0.6 0.0 - 1.0 % ABSOLUTE NEUTROPHILS 15.03 (H) 1.60 - 7.70 10(3)/mcL ABSOLUTE LYMPHOCYTES 1.47 1.30 - 3.20 10(3)/mcL ABSOLUTE MONOCYTES 0.70 0.20 - 1.00 10(3)/mcL ABSOLUTE EOSINOPHIL 0.01 0.00 - 0.40 10(3)/mcL ABSOLUTE BASOPHILS 0.11 (H) 0.00 - 0.10 10(3)/mcL NRBC PER 100 WBC 0 Imaging Results XR CHEST SINGLE VIEW PORTABLE (No Result on File) 14:20 - Spoke with Dr Finley. She was asked that the patient be admitted on IV steroids. We discussed getting C diff testing and she did not think the patient was tested during recent hospitalizationbut review of record after my conversation with the shows that she did have a negative C diff test.Her recommendation was admission for IV fluids she will consult. Patient has been accepted for admission by DAYNE Mcgovern on behalf of Dr Lan. Medical Decision Making Impression: Patient presents with complaints of weakness, vomiting, diarrhea. Notably, further history obtained from patient, markie and patient was oncologist and prior records from recent hospitalization were reviewed. Patient's history of metastatic melanoma on immunotherapy has impacted care and subsequent medical decision making. Differential diagnosis includes - renal failure, C diff colitis, colitis, medication side effect . I considered additional work up for possible intra- abdominal pathology with CT scan, but did not pursue due to alternative diagnosis more likely and signs and symptoms on exam and initial findings not consistent with these disease processes. Tests were independently reviewed and interpreted and imaging independently visualized and interpreted. ED evaluation is significant for acute renal failure. Interventions and treatments in the ER IV fluids Plan for admission. Discussed the case with DAYNE Maldonado. Clinical Impression 1. Acute renal failure, unspecified acute renal failure type (HCC) 2. Diarrhea, unspecified type 3. Nausea and vomiting, unspecified vomiting type Disposition: Admit * Dena Dawson RN - 08/01/2024 12:44 PM CDT Patient arrives to ed from the infusion center with c/o dehydration, n/v, and abnormal labs. She believes all these symptoms are related to her cancer treatments. Hx of cancer (skin) to left foot. documented in this encounter Miscellaneous Notes * Interdisciplinary - Adriana Ryder RN - 08/03/2024 6:15 PM CDT Patient discharged home with belongings. Port de-accessed and telemetry removed. Patient educated on discharge instructions and AVS by KRISTAL Nunn. Patient taken to main entrance in wheel chair. Significant other is transporting her home. * Georgie - Adriana Ryder RN - 08/03/2024 4:45 PM CDT Patient tolerating general diet. Plan is for patient to discharge home. OK to run IVF at 250 cc/hr.Will discharge when IVF are finished. * Georgie - Arline Rojo RN - 08/03/2024 2:26 PM CDT Discharge instructions explained to patient using teach back All follow up care appointments were discussed and understood. New medications were reviewed and understood. Patient was instructed where to pick the medications up. patient given my phone number to call for any questions or concerns about discharge instructions. * Interdisciplinary - Rama Márquez - 08/03/2024 1:52 PM CDT Case Management Discharge Readiness Note Dayanara Perez 's readmission risk level (if calculated) is: 3-Medium High Patient Class: Inpatient Consecutive Inpatient Midnights 2 Actual day(s) of hospital stay (compare to working DRG): 2 Discharge: Final home discharge arrangements: home with no services Mode of transportation at discharge:: Family car Additional Information regarding DC Plan: [facility] is unable to provide fluids and steroids. CM discussed this with Oncology salt washer harvesting station Marie who has scheduled her on Tuesday to get these supplement infusions. Information is on her AVS. Discharge Plan Notification/ Verification Patient's Phone numbers: [phone] (home) Patient's preferred discharge phone number for follow up appointments, etc: (if different from above): N/A Information for bedside nurse to call report and fax PACT Document in Sticky Note?: Not applicable - no external home care agencies or hemodialysis Nursing notified: YES Omar RN Decision Maker / Caregiver Information Decision Maker: Patient is assumed to be the medical decision maker Patient/ Decision Maker and family notified: Dayanara Perez Family/ Caregiver's readiness, willingness and ability to support patient with anticipated community discharge plan: Did not speak with family/caregiver during this contact. IM Letter Documentation, if applicable N/A - Payor is not Medicare * Georgie - Adriana Ryder RN - 08/03/2024 12:35 PM CDT Patient resting in recliner. States she is feeling better than yesterday but is still having diarrhea. Tolerating clear liquid diet. Will continue to monitor. * Interdisciplinary - Adriana Ryder RN - 08/03/2024 12:[address] Lan notified patient's K is 5.1. received orders to change IVF to normal saline. OK to advance patient to general diet. Patient is aware. * Georgie - Sr. Mary Delacruz - 08/03/2024 11:11 AM CDT Pastoral care came to see how she was doing after visiting with her in ED a couple of years ago. She stated that she is feeling so much better now. She really is a very pleasant young lady. * Georgie - Luz Cruz - 08/03/2024 11:10 AM CDT Tents Assembler Coordination Note SUMMARY - Tents Assembler currently working the potential transition plan(s): 08/02/2024 @ 4:15 PM CDT ([facility]) Home Infusion Pharmacy [HIP] 08/02/2024 @ 8:29 AM CDT ([facility]) Follow Up Appointment (See detail within the referral type(s) below for information on what is needed to complete coordination Note - the Transition Specialists do not coordinate all transition types - please direct all question regarding hospital transition to the Prefitter) Readmission risk level (if calculated) is: 3-Medium High Primary Care Provider: PCP: KELLEN CHU MD Primary Medical Coverage: [employer] Secondary Medical Coverage: N/A Hospital Follow-Up appointment(s) scheduling status: Appointment to be made closer to discharge Home Infusion Pharmacy [HIP] Referral Status: CANCELED Referral Type: new Provider who will follow for orders for HIP: [facility] Needed: IV hydration, other (see comment) (solumedrol) What type of line will be used for the administration?: implanted port Needed Information / Documentation to complete Home Infusion Pharmacy coordination: None [facility] - DECLINED Contact Ida Contact 08/03/2024 @ 11:10 AM CDT ([facility], ) Text from Ida, they are unable to accommodate pt. Informed CMOlivia via secure chat 08/03/2024 @ 10:13 AM CDT ([facility], ) Text from Ida stating they are reviewing benefits and request. This is done on a case by case basis and she will keep us posted. MORALES Ontiveros aware 08/02/2024 @ 4:15 PM CDT ([facility], ) Referral sent via [employer] fax. Notified Ida via text * Interdisciplinary - Bill Malagon, RN - 08/02/2024 5:53 PM CDT Pt. Is resting in bed with call light in reach and bed alarm active. Pt. Has IV fluids infusing. Pt. Has received IV steroids. Pt. Has had minimal Nausea, but is still having diarrhea. Pt. Has no needs at this time. * Interdisciplinary - Rama Márquez - 08/02/2024 4:38 PM CDT Spoke with Chasity at [facility] who states agreement with HIP if able to be coordinated. Referralhas been sent to [facility] and will provide them update with specific fluids and steroids once obtained from provider. * Plan of Care - Rama Márquez - 08/02/2024 3:40 PM CDT Case Management Comprehensive Assessment Dayanara Perez 's readmission risk level (if calculated) is: 3-Medium High Patient Class: Inpatient Consecutive Inpatient Midnights 1 Actual day(s) of hospital stay (compare to working DRG): 1 Reason for PrefitterLoss Prevention Agent: High Risk for Readmission (High, Medium- High) and Re-hospitalization Dayanara Perez is in the hospital due to: Aelxx Prior to Admission (Support, Living Environment,ADLs IADLs, Transportation, Employment, Access to Care) Patient is alert and oriented x3. Patient and parents live in a two story house and she stays on the main level. Patient is independent with ADL's, meal and driving. Family also completes chores and transport. Patient does not use DME. Patient's PCP is KELLEN CHU MD. Patient has [employer] without reported difficulty obtaining medications. Patient does not have advanced directives. Dayanara Perez is a 30 day re-hospitalization Index hospitalization dates: 07/25/24-07/30/24 Index hospitalization principle problem: ALEXX Index Hospitalization Discharge disposition and services (ie., home health, SNF, equipment - include the names of the agency and services / equipment provided by agency ): No needs Did patient declines services on index hospitalization?: No Dayanara Perez /family's account of events from index hospital discharge leading to current hospitalization: Patient returned home and followed up at appointment with Oncology who sent her to ER dueto chemo side effects. Plan of Care (Problem/ situation/ barrier + goals/ milestones + interventions + evaluation of progress = Plan of Care) Hospital Plan: IVF, solumedrol, Oncology Anticipated Discharge Plan: Home Infusion Pharmacy (HIP) 08/02/24 Patient/ patient sales representative jewelry's preferences regarding the discharge plan: return home with possible HIP vs outpatient infusion center Family/ Caregiver's readiness, willingness and ability to support patient with anticipated community discharge plan: Did not speak with family/caregiver during this contact. SUMMARY (summary of interaction with patient/decision maker, family and interdisciplinary team) Decision Maker: Patient is assumed to be the medical decision maker Met with Dayanara Perez and introduced self and role and discussed plan of care. CM notified by Dr. Stuart plan for possible HIP for IVF and steroids. Per Oncology note from office visit yesterday stating possible coordination for infusion at infusion center. Voicemail left for Chasity Caldera RN Oncology. CM to send referral to [facility] for possible HIP. IM Letter Documentation, if applicable N/A - Payor is not Medicare New referral(s) for Post-Acute Hospital Service(s) Home Infusion Pharmacy [HIP] The decision maker(s) was presented option(s) of HIP providers serving the patient's geographic area. Any HIP agency in which the hospital has a financial interest was disclosed.(As applicable in-network providers have been identified and guidance provided to verify with the medical plan which providers are in network.) The decision maker(s) has been informed of their freedom to choose among the identified service providers. Agency Choice(s) [facility] New or Resumption: new Name of Provider who will follow after hospitalization for HIP needs: Dr. Finley, Oncologist Home Infusion Services Needed: IV hydration, other (see comment) (solumedrol) Anticipated discharge line type: implanted port * Bill Patel, RN - 08/02/2024 10:09 AM CDT Pt. Is resting in bed wit call light in reach and bed alarm active. Pt. Has IV fluids infusing. Pt.Has no complaints of nausea and pain. Pt. Full assessment complete see flow sheet. * Luz Coronado - 08/02/2024 8:29 AM CDT Tents Assembler Coordination Note SUMMARY - Tents Assembler currently working the potential transition plan(s): 08/02/2024 @ 4:15 PM CDT ([facility], ) Home Infusion Pharmacy [HIP] 08/02/2024 @ 8:29 AM CDT ([facility], ) Follow Up Appointment (See detail within the referral type(s) below for information on what is needed to complete coordination Note - the Transition Specialists do not coordinate all transition types - please direct all question regarding hospital transition to the Prefitter) Readmission risk level (if calculated) is: 3-Medium High Primary Care Provider: PCP: KELLEN CHU MD Primary Medical Coverage: [employer] Secondary Medical Coverage: N/A Hospital Follow-Up appointment(s) scheduling status: Appointment to be made closer to discharge Home Infusion Pharmacy [HIP] Referral Status: pending Referral Type: new Provider who will follow for orders for HIP: [facility] Needed: IV hydration, other (see comment) (solumedrol) What type of line will be used for the administration?: implanted port Needed Information / Documentation to complete Home Infusion Pharmacy coordination: Final IV fluid order Order for Normal Saline Flushes Orders for IV Line Care (dressing changes, flushes, etc.) Confirmed Discharge Date Start of Care Date / Time (from Home Infusion and /or Home Health agency(ies) [facility] - initial Contact Ida Contact 08/02/2024 @ 4:15 PM CDT ([facility], ) Referral sent via [employer] fax. Notified Ida via text * Interdisciplinary - Sussy Portillo RN - 08/01/2024 10:30 PM CDT Per ePharmacy, IVF compatible with flagyl at Y site. * Interdisciplinary - Bill Malagon RN - 08/01/2024 5:16 PM CDT Initial Skin Assessment Patient assessed with 2nd RN Ami Wounds noted: N/A PRESSURE INJURY AND MOISTURE MANAGEMENT RECOMMENDATIONS: Moisture Management: Patient is Continent and has no moisture problems at this time Pressure Injury Prevention Interventions: Patient is independent in Room and/or Bed Specialty Surface Selection: Moisture Score: 4-->rarely moist Mobility Score: 4-->no limitation Total Rubens Score: 23 Patient has intact skin on the pelvis and trunk: Bed Selection based on Rubens Moisture and Mobility: Moisture 4: Mobility 3 or 4: No Specialty Bed Indicated Wound care: N/A BILL MALAGON RN * Interdisciplinary - Sr. Mary Delacruz - 08/01/2024 4:13 PM CDT Very lillie young lady. She stays with her parents, which is good for when she is not doing well. Transferred cancer doctors and facilities to here. She loves and appreciates Dr. Frank very much. documented in this encounter Plan of Treatment Upcoming Encounters Date Type Department Care Team (Late st Contact Info) Description 11/15/2024 1:00 PM DEVELOPER PROGRAMMER [facility] [address] [place] [address] Markus Finley MD [address] [place] [address] 11/15/2024 2:00 PM DEVELOPER PROGRAMMER [facility] [address] [place] [address] Markus Finley MD [address] [place] [address] Discharge Disposition: Discharged to home or Selfcare Scheduled Orders Name Type Priority Associated Diagnoses Orde r Schedule Pulse Oximetry, Spot PFT Routine WITH VITALS until discontinued starting 08/01/2024 documented as of this encounter Procedures Procedure Name Priority Date/Time Associated Diagnosis Comments CBC WITH AUTO DIFFERENTIAL Routine 08/03/2024 4:32 AM CDT THYROXINE (T4) FREE Routine 08/03/2024 4 :32 AM CDT TRIIODOTHYRININE (T3) FREE Routine 08/03/2024 [...] RHYTHM STRIP 08/02/2024 12:00 AM CDT C. DIFFICILE BY PCR STAT 08/01/2024 7 :08 PM CDT C. DIFF BY PCR STAT 08/01/2024 7:08 PM CDT CULTURE, BLOOD STAT 08/01/2024 3:48 PM CDT XR CHEST SINGLE VIEW PORTABLE STAT 08/01/2024 2:49 PM CDT CULTURE, BLOOD STAT 08/01/2024 2:17 PM CDT CRITICAL CARE Routine 08/01/2024 2:16 PM CDT EXTRA TUBES STAT 08/01/2024 1:30 PM CDT RACHID MUIR HEPARIN/SST TOP TUBE STAT 08/01/2024 1:30 PM CDT GOLD TOP TUBE STAT 08/01/2024 1:30 PM CDT BLUE TOP TUBE STAT 08/01/2024 1:30 PM CDT LAVENDER TOP TUBE STAT 08/01/2024 1:3 0 PM CDT RHYTHM STRIP 08/01/2024 12:00 AM CDT documented in this encounter Results * (ABNORMAL) BASIC METABOLIC PANEL W/ CALCIUM TOTAL (08/10/2024 11:20 AM CDT) Only the most recent of3 resultswithin the time period is included. SODIUM 133(L) 136 - 145 mmol/L 08/10/2024 11:56 AM CDT [facility] POTASSIUM 3.9 3.5 - 5.1 mmol/L 08/10/2024 11:56 AM CDT [facility] CHLORIDE 105 98 - 107 mmol/L 08/10/2024 11:56 AM CDT [facility] CO2, VENOUS 23 22 - 30 mmol/L 08/10/2024 11:56 AM CDT [facility] ANION GAP 8.9 <18.0 mmol/L 08/10/2024 11:56 AM CDT [facility] GLUCOSE 138(H) 70 - 99 mg/dL 08/10/2024 11:56 AM CDT [facility] BUN 15 5 - 18 mg/dL 08/10/2024 11:56 AM CDT [facility] CREATININE, BLOOD 0.86 0.60 - 1.00 mg/dL 08/10/2024 11:56 AM CDT [facility] BUN/CREATININE RATIO 17 12 - 20 ratio 08/10/2024 11:56 AM CDT [facility] CALCIUM 8.9 8.7 - 10.5 mg/dL 08/10/2024 11:56 AM CDT [facility] GFR, ESTIMATED >60 >=60 08/10/2024 11:56 AM CDT [facility] Comment: Creatinine Clearance is the preferred criteria for selecting drug dose adjustments in renally impaired patients. ??The GFR is provided as additional pertinent clinical information. GFR is reported in mL/min/1.73 sq m. Calculation based on the Chronic Kidney Disease Epidemiology Collaboration (CKD- EPI) equation refit without adjustment for race. GFR, EST. >60 >=60 024 11:56 AM CDT [facility] GFR, EST. NONAFRICAN >60 >=60 08/10/2024 11:56 AM CDT [facility] Blood Sub-Q Port Venou s Access Device (Medi-Port, Implanted Port) / Unknown 08/10/2024 11:20 AM CDT 08/10/2024 11:20 AM CDT Lee Lan MD CHEMISTRY ORDERABLES Fin al Result [facility] [address] [place] [address] * (ABNORMAL) CBC with Auto Differential (08/03/2024 4:32 AM CDT) Only the most recent of2 resultswithin the time period is included. WBC 8.19 4.00 - 12.00 10(3)/mcL 08/03/2024 7:29 AM CDT [facility] RBC 4.01 3.80 - 5.30 10(6)/mcL 08/03/2024 7:29 AM CDT [facility] HEMOGLOBIN (HGB) 12.1 12.0 - 15.8 g/dL 08/03/2024 7:29 AM CDT [facility] HEMATOCRIT (HCT) 35.4(L) 36.0 - 47.0 % 08/03/2024 7:29 AM CDT [facility] MCV 88.3 82.0 - 96.0 fL 08/03/2024 7:29 AM CDT [facility] MCH 30.2 26.0 - 34.0 pg 08/03/2024 7:29 AM CDT [facility] MCHC 34.2 31.0 - 36.0 g/dL 08/03/2024 7:29 AM CDT [facility] PLATELET COUNT 225 140 - 440 10(3)/[facility] 08/03/2024 7:29 AM CDT [facility] RDW 13.7 11.8 - 15.5 % 08/03/2024 7:29 AM CDT [facility] MPV 10.2 9.7 - 12.4 fL 08/03/2024 7:29 AM CDT [facility] NEUTROPHILS 90.3(H) 47.0 - 73.0 % 08/03/2024 7:29 AM CDT [facility] LYMPHOCYTES 4.8(L) 18.0 - 42.0 % 08/03/2024 7:29 AM CDT [facility] MONOCYTES 4.8 4.0 - 12.0 % 08/03/2024 7:29 AM CDT [facility] EOSINOPHILS 0.0 0.0 - 5.0 % 08/03/2024 7:29 AM CDT [facility] BASOPHILS 0.1 0.0 - 1.0 % 08/03/2024 7:29 AM CDT [facility] ABSOLUTE NEUTROPHILS 7.40 1.60 - 7.70 10(3)/[facility] 08/03/2024 7:29 AM CDT [facility] ABSOLUTE LYMPHOCYTES 0.39(L) 1.30 - 3.20 10(3)/[facility] 08/03/2024 7:29 AM CDT [facility] ABSOLUTE MONOCYTES 0.39 0.20 - 1.00 10(3)/[facility] 08/03/2024 7:29 AM CDT [facility] ABSOLUTE EOSINOPHIL 0.00 0.00 - 0.40 10(3)/[facility] 08/03/2024 7:29 AM CDT [facility] ABSOLUTE BASOPHILS 0.01 0.00 - 0.10 10(3)/mcL 08/03/2024 7:29 AM CDT [facility] NRBC PER 100 WBC 0 08/03/20 7:29 AM CDT [facility] RESULTS ARE CONSISTENT WITH PERIPHERAL SMEAR REVIEW Yes 08/03/2024 7:29 AM CDT [facility] RBC MORPHOLOGY CONSISTENT WITH INDICES Yes 08/03/2024 7:29 AM CDT [facility] Blood Venipuncture / Unknown 08/03/2024 4:32 AM CDT 08/03/2024 6:29 AM CDT Esteban Mcgovern BORDER PATROL OFFICER, PRODUCTION TOOL ENGINEER HEMATOLOGY ORDERABLES F inal Result Performing Organization Address City/[facility]/ZIP Co de Phone Number [facility] [address] [place] [address] * THYROXINE (T4) FREE (08/03/2024 4:32 AM CDT) T4 FREE 0.7 0.7 - 1.9 ng/dL 08/03/2024 7:20 AM CDT [facility] Blood Venipuncture / Unknown 08/03/2024 4:32 AM CDT 08/03/2024 6:28 AM CDT us Urbano Quiñonez MD CHEMISTRY ORDERABLES Final Result [facility] [address] [place] [address] * Triiodothyrinine (T3) Free (08/03/2024 4:32 AM CDT) FREE T3 1.6 1.6 - 3.9 pg/mL 08/03/2024 4:08 PM CDT [facility] Blood Venipuncture / Unknown 08/03/2024 4:32 AM CDT 08/03/2024 6:28 AM CDT Urbano Quiñonez MD CHEMISTRY ORDERABLES Final Result [facility] [address] [place] [address], [place] * RHYTHM STRIP (08/03/2024 12:00 AM CDT) Only the most recent of6 resultswithin the time period is included. 08/03/2024 us Provider Scan IMG ECG ORDERABLES Final Result Performing Organization Address City/[facility]/ZIP Co de Phone Number RESULTING AGENCY * C. DIFF BY PCR (08/01/2024 7:08 PM CDT) C DIFF TOXIN DNA BY PCR Negative Negative, Invalid 08/01/2024 7:56 PM CDT [facility] Other STOOL SPECIMEN / Unknown Non-Phlebotomy Collection / Unknown 08/01/2024 7:08 PM CDT 08/01/2024 7:08 PM CDT Gael Morales MD MICROBIOLOGY - GENERAL ORD ERABLES Final Result Performing Organization Address City/[facility]/ZIP Co de Phone Number [facility] [address] [place] [address] * Blood Culture #2 (08/01/2024 3:48 PM CDT) Only the most recent of2 resultswithin the time period is included. CULTURE RESULTS NO GROWTH WITHIN 5 DAYS, FINAL RESULT 08/06/2024 5:01 PM CDT [facility] Culture BLOOD SPECIMEN / Unknown Venipuncture / Unknown 08/01/2024 3:48 PM CDT 08/01/2024 4:10 PM CDT Gael Morales MD MICROBIOLOGY - GENERAL ORD ERABLES Final Result [facility] [address] [place] [address], [place] * XR CHEST SINGLE VIEW PORTABLE [...] PM T: ??08/01/2024 2:59 PM Report ID: [id number] Reading Location: ??[id number] Procedure Note Nisreen Lara MD - 08/01/2024 [...] Nisreen Esteban M.D. FT: FT Report ID: [id number] Reading Location: [id number] IMPRESSION: No acute cardiopulmonary abnormality. Result [facility] Gael Morales MD IMG DIAGNOSTIC ORDERABLES Final [...] no ?Care discussed with: admitting provider ?? Result [facility] Gael Morales MD PROCEDURE/MINOR SURGICAL O RDERABLES Final Result * RACHID MUIR HEPARIN/SST TOP TUBE (08/01/2024 1:30 PM CDT) Blood No Phlebotomy Charged / Unknown 08/01/2024 1:30 PM CDT 08/01/2024 1:30 PM CDT Result [facility] Gael Morales MD HEMATOLOGY ORDERABLES Susan l Result [facility] [address] [place] [address] * Lavender Top Tube (08/01/2024 1:30 PM CDT) Blood No Phlebotomy Charged / Unknown 08/01/2024 1:30 PM CDT 08/01/2024 1:30 PM CDT Gael Morales MD HEMATOLOGY ORDERABLES Susan l Result Performing Organization Address City/[facility]/ZIP Co de Phone Number [facility] [address] [place] [address] * Gold Top Tube (08/01/2024 1:30 PM CDT) Blood No Phlebotomy Charged / Unknown 08/01/2024 1:30 PM CDT 08/01/2024 1:30 PM CDT Gael Morales MD CHEMISTRY ORDERABLES Final Result Performing Organization Address City/[facility] Co de Phone Number [facility] [address] [place] [address] * Blue Top Tube (08/01/2024 1:30 PM CDT) Blood No Phlebotomy Charged / Unknown 08/01/2024 1:30 PM CDT 08/01/2024 1:30 PM CDT Gael Morales MD HEMATOLOGY ORDERABLES Susan l Result Performing Organization Address City/[facility]/ZIP Co de Phone Number [facility] [address] [place] [address] documented in this encounter Visit Diagnoses Diagnosis Acute renal failure, unspecified acute renal failure type (HCC)- Primary Acute renal failure, unspecified acute renal failure type (HCC) Diarrhea, unspecified type Nausea and vomiting, unspecified vomiting type Metabolic acidosis, increased anion gap Acidosis documented in this encounter Admitting Diagnoses Diagnosis Acute renal failure, unspecified acute renal failure type (HCC) documented in this encounter Administered Medications Inactive Administered Medications - up to 3 most recent administrations Medication Order MAR Action Action Date Dose Rate Site 0.9 % sodium chloride solution at 100 mL/hr, Intravenous, CONTINUOUS, Starting on Tue08/03/24 at 1230, Until Tue08/03/24 at 2102 New Bag 08/03/2024 12:30 PM CDT 100 mL/hr 0.9% sodium chloride with potassium chloride 40 mEq/L infusion at 150 mL/hr, Intravenous, ONCE, 1 dose, On Tue08/01/24 at 1430 New Bag 08/01/2024 3:53 PM CDT 150 mL/hr 0.9% sodium chloride with potassium chloride 40 mEq/L infusion at 150 mL/hr, Intravenous, CONTINUOUS, Starting on Tue08/01/24 at 1630, Until Tue08/03/24 at 1214 New Bag 08/02/2024 11:27 PM CDT 150 mL/hr [facility] 08/02/2024 4:34 PM CDT 150 mL/hr [facility] 08/02/2024 9:47 AM CDT 150 mL/hr acetaminophen (TYLENOL) tablet 650 mg 650 mg, Oral, EVERY 4 HOURS PRN, Starting on Tue08/01/24 at 1559, Until Tue08/03/24 at 2102, Mild pain or more severe pain if patient requests, Maximum dose of acetaminophen is 4000 mg from all sources in 24 hours. calcium carbonate (TUMS) chewable tablet 1,000 mg 1,000 mg, Oral, EVERY 8 HOURS PRN, Starting on Tue08/01/24 at 1559, Until Tue08/03/24 at 2102, Heartburn, Indigestion Given 08/03/2024 10:11 AM CDT 1,0 00 mg diphenoxylate-atropine (LOMOTIL) 2.5-0.025 MG per tablet 1 Tablet 1 Tablet, Oral, 4 TIMES DAILY, First dose on Tue08/01/24 at 1430, Until Discontinued, Maximum 8 tablets in 24 hours. Given 08/03/2024 5:46 PM CDT 1 Tablet Given 08/03/2024 1:39 PM CDT 1 Tablet Given 08/03/2024 9:59 AM CDT 1 Tablet enoxaparin (LOVENOX) injection 40 mg 40 mg, Subcutaneous, EVERY 24 HOURS, First dose on Tue08/01/24 at 1630, Until Discontinued Heparin Na (Pork) Lock Flsh PF SOLN 50 Units 50 Units, Intravenous, PRN, Starting on Tue08/03/24 at 1601, Until Tue08/03/24 at 2102, Line Care Given 08/03/2024 5:46 PM CDT 50 Units magnesium hydroxide (MILK OF MAGNESIA) 400 MG/5ML suspension 30 mL 30 mL, Oral, DAILY PRN, Starting on Tue08/01/24 at 1559, Until Tue08/03/24 at 210, Constipation - 3rd line, Magnesium hydroxide 400 mg/5 ml = 166.7 mg elemental magnesium/5ml. Hold for loose stools (loose, liquid, mucoid, soft, watery stool that takes the shape of the container) or greater than 2 moderate or larger stools in 24hrsIndications:Constipation melatonin tablet 3 mg 3 mg, Oral, NIGHTLY PRN, Starting on Tue08/01/24 at 1604, Until Tue08/03/24 at 210, Other, Sleep methylPREDNISolone Na Suc (PF) (Solu-MEDROL) injection 125 mg 125 mg, Intravenous, EVERY 12 HOURS, First dose on Tue08/01/24 at 2200, Until Discontinued Given 08/03/2024 9:59 AM CDT 125 mg Given 08/02/2024 9:20 PM CDT 125 mg Given 08/02/2024 9:40 AM CDT 125 mg metroNIDAZOLE (FLAGYL) IV 500 mg 500 mg, Intravenous, at 200 mL/hr, EVERY 8 HOURS, First dose on Tue08/01/24 at 1430, Until Discontinued, Administer over 30 Minutes, Indications: Clostridioides Difficile InfectionIndications:Clostridioides Difficile Infection New Bag 08/02/2024 1:27 PM CDT 500 mg 200 mL/hr New Bag 08/02/2024 5:34 AM CDT 500 mg 200 mL/hr New Bag 08/01/2024 9:59 PM CDT 500 mg 200 mL/hr nicotine (NICODERM CQ) 21 MG/24HR patch 1 Patch 1 Patch, Transdermal, DAILY PRN, Starting on Tue08/01/24 at 1559, Until Tue08/03/24 at 2102, Administer over 24 Hours, Other, Nicotine dependency, For disposal of medication AND containers- black bin ondansetron (ZOFRAN) injection 4 mg 4 mg, Intravenous, EVERY 6 HOURS PRN, Starting on Tue08/01/24 at 1559, Until Tue08/03/24 at 2102, 1. First Line Antiemetic. 2. Use Injection only if patient unable to tolerate oral medications., Nausea - 1st line Given 08/01/2024 10:04 PM CDT 4 mg ondansetron (ZOFRAN-ODT) disintegrating tablet 4 mg 4 mg, Oral, EVERY 6 HOURS PRN, Starting on Tue08/01/24 at 1559, Until Tue08/03/24 at 2102, Nausea - 1st line, 1. First Line Antiemetic. 2. Use PO form unless unable to tolerate PO medications, then use Injection polyethylene glycol (GLYCOLAX, MIRALAX) packet 17 g 17 g, Oral, 2 TIMES DAILY PRN, Starting on Tue08/01/24 at 1559, Until Tue08/03/24 at 210, Constipation - 1st line, Dilute dose in 120 - 240 mL of beverage.Hold for loose stools (loose, liquid, mucoid, soft, watery stool that takes the shape of the container) or greater than 2 moderate or larger stools in 24hrsIndications:Constipation potassium chloride IVPB 20 mEq 100 mL 20 mEq, Intravenous, ONCE, 1 dose, On Tue08/01/24 at 1700, Administer over 2 Hours, Infuse each 20 mEq over 2 hours for a total dose of 40 mEq New Bag 08/01/2024 5:22 PM CDT 20 mEq potassium chloride IVPB 20 mEq 100 mL 20 mEq, Intravenous, ONCE, 1 dose, On Tue08/01/24 at 1900, Administer over 2 Hours, Infuse each 20 mEq over 2 hours for a total dose of 40 mEq New Bag 08/01/2024 7:52 PM CDT 20 mEq senna (SENOKOT) tablet 8.6 mg 8.6 mg (1 Tablet), Oral, 2 TIMES DAILY PRN, Starting on Tue08/01/24 at 1559, Until Tue08/03/24 at 2102, Constipation - 2nd line sodium bicarbonate tablet 650 mg 650 mg, Oral, 3 TIMES DAILY, First dose on Tue08/03/24 at 0900, Until Discontinued Given 08/03/2024 1:39 PM CDT 650 mg Given 08/03/2024 9:59 AM CDT 650 mg sodium chloride 0.9 % 1,000 mL IV bolus Intravenous, ONCE, 1 dose, On Tue08/01/24 at 1400, Administer over 0.5 Hours New Bag 08/01/2024 1:53 PM CDT 2000 mL/hr documented in this encounter Active and Recently Administered Medications Times are shown in CDT. Scheduled Medication Order 08/01/2024 08/02/2024 08/03/2024 0.9% sodium chloride with potassium chloride 40 mEq/L infusion (COMPLETED) at 150 mL/hr, Intravenous, ONCE, 1 dose, On Tue08/01/24 at 1430 1553 (New Bag - Provider: Coral Santana RN)1615 (Infusing on Transfer - Provider: Coral Santana RN) diphenoxylate-atropine (LOMOTIL) 2.5-0.025 MG per tablet 1 Tablet 1 Tablet, Oral, 4 TIMES DAILY, First dose on Tue08/01/24 at 1430, Until Discontinued, Maximum 8 tablets in 24 hours. 1552 (Given - Provider: Coral Santana RN)2100 (Given - Provider: Sussy Portillo RN)2101 (Not Given - Provider: Sussy Portillo RN - Reason: Order parameters not met - Comment: scheduled at 2100) 0939 (Given - Provider: Bill Malagon RN)1327 (Given - Provider: Bill Malagon RN)1634 (Given - Provider: Bill Malagon RN)2120 (Given - Provider: Sussy Portillo RN) 0959 (Given - Provider: Adriana Ryder, KRISTAL)1339 (Given - Provider: Adriana Ryder, KRISTAL)1746 (Given - Provider: Adriana Ryder, KRISTAL) enoxaparin (LOVENOX) injection 40 mg 40 mg, Subcutaneous, EVERY 24 HOURS, First dose on Tue08/01/24 at 1630, Until Discontinued 1700 (Not Given - Provider: Bill Malagon RN - Reason: Patient/family refused) 1630 (Not Given - Provider: Bill Malagon RN - Reason: Patient/family refused) 1630 (Not Given - Provider: Adriana Ryder RN - Reason: Patient/family refused) methylPREDNISolone Na Suc (PF) (Solu-MEDROL) injection 125 mg 125 mg, Intravenous, EVERY 12 HOURS, First dose on Tue08/01/24 at 2200, Until Discontinued 2158 (Given - Provider: Sussy Portillo RN) 0940 (Given - Provider: Bill Malagon RN)2120 (Given - Provider: Sussy Portillo RN) 0959 (Given - Provider: Adriana Ryder RN) metroNIDAZOLE (FLAGYL) IV 500 mg (CANCELED) 500 mg, Intravenous, at 200 mL/hr, EVERY 8 HOURS, First dose on Tue08/01/24 at 1430, Until Discontinued, Administer over 30 Minutes, Indications: Clostridioides Difficile Infection 1553 (New Bag - Provider: Coral Santana RN)1615 (Infusing on Transfer - Provider: Coral Santana RN)1623 (Stopped - Provider: Bill Malagon RN)215 (New Bag - Provider: Sussy Portillo RN)2229 (Stopped - Provider: Sussy Portillo RN) 0534 (New Bag - Provider: Sussy Portillo RN)0604 (Stopped - Provider: Bill Malagon RN)1327 (New Bag - Provider: Bill Malagon RN)1357 (Stopped - Provider: Bill Malagon RN) potassium chloride IVPB 20 mEq 100 mL (COMPLETED)(Linked Group 1) 20 mEq, Intravenous, ONCE, 1 dose, On Tue08/01/24 at 1700, Administer over 2 Hours, Infuse each 20 mEq over 2 hours for a total dose of 40 mEq 172 (New Bag - Provider: Bill Malagon RN)192 (Stopped - Provider: Sussy Portillo RN) potassium chloride IVPB 20 mEq 100 mL (COMPLETED)(Linked Group 1) 20 mEq, Intravenous, ONCE, 1 dose, On Tue08/01/24 at 1900, Administer over 2 Hours, Infuse each 20 mEq over 2 hours for a total dose of 40 mEq 1951 (New Bag - Provider: Sussy Portillo RN)2151 (Stopped - Provider: Sussy Portillo RN) sodium bicarbonate tablet 650 mg 650 mg, Oral, 3 TIMES DAILY, First dose on Tue08/03/24 at 0900, Until Discontinued 0959 (Given - Provider: Adriana Ryder RN)1339 (Given - Provider: Adriana Ryder RN) sodium chloride 0.9 % 1,000 mL IV bolus (COMPLETED) Intravenous, ONCE, 1 dose, On Tue08/01/24 at 1400, Administer over 0.5 Hours 1353 (New Bag - Provider: Graciela Clark RN)1516 (Stopped - Provider: Coral Santana RN) Continuous Medication Order 08/01/2024 08/02/2024 08/03/2024 0.9 % sodium chloride solution at 100 mL/hr, Intravenous, CONTINUOUS, Starting on Tue08/03/24 at 1230, Until Tue08/03/24 at 2102 1230 (New Bag - Provider: Adriana Ryder RN)210 (Due: $Complete Infusion) 0.9% sodium chloride with potassium chloride 40 mEq/L infusion (CANCELED) at 150 mL/hr, Intravenous, CONTINUOUS, Starting on Tue08/01/24 at 1630, Until Tue08/03/24 at 1214 1722 (New Bag - Provider: Bill Malagon RN)1723 (Paused - Provider: Bill Malagon RN) 0318 (Stopped - Provider: Sussy Portillo RN)0321 (New Bag - Provider: Sussy Portillo RN)0946 (Stopped - Provider: Bill Malagon RN)0947 (New Bag - Provider: Bill Malagon RN)1634 (New Bag - Provider: Bill Malagon RN)2322 (Stopped - Provider: Sussy Portillo RN)2327 (New Bag - Provider: Sussy Portillo RN) 1214 (Stopped - Provider: Adriana Ryder RN) PRN Medication Order 08/01/2024 08/02/2024 08/03/2024 acetaminophen (TYLENOL) tablet 650 mg 650 mg, Oral, EVERY 4 HOURS PRN, Starting on Tue08/01/24 at 1559, Until Tue08/03/24 at 2102, Mild pain or more severe pain if patient requests, Maximum dose of acetaminophen is 4000 mg from all sources in 24 hours. calcium carbonate (TUMS) chewable tablet 1,000 mg 1,000 mg, Oral, EVERY 8 HOURS PRN, Starting on Tue08/01/24 at 1559, Until Tue08/03/24 at 210, Heartburn, Indigestion 1011 (Given - Provid er: Adriana Ryder RN) Heparin Na (Pork) Lock Flsh PF SOLN 50 Units 50 Units, Intravenous, PRN, Starting on Tue08/03/24 at 1601, Until Tue08/03/24 at 210, Line Care 1746 (Given - Provid er: Adriana Ryder RN) magnesium hydroxide (MILK OF MAGNESIA) 400 MG/5ML suspension 30 mL 30 mL, Oral, DAILY PRN, Starting on Tue08/01/24 at 1559, Until Tue08/03/24 at 210, Constipation - 3rd line, Magnesium hydroxide 400 mg/5 ml = 166.7 mg elemental magnesium/5ml. Hold for loose stools (loose, liquid, mucoid, soft, watery stool that takes the shape of the container) or greater than 2 moderate or larger stools in 24hrs melatonin tablet 3 mg 3 mg, Oral, NIGHTLY PRN, Starting on Tue08/01/24 at 1604, Until Tue08/03/24 at 210, Other, Sleep nicotine (NICODERM CQ) 21 MG/24HR patch 1 Patch 1 Patch, Transdermal, DAILY PRN, Starting on Tue08/01/24 at 1559, Until Tue08/03/24 at 2102, Administer over 24 Hours, Other, Nicotine dependency, For disposal of medication AND containers- black bin ondansetron (ZOFRAN) injection 4 mg(Linked Group 2) 4 mg, Intravenous, EVERY 6 HOURS PRN, Starting on Tue08/01/24 at 1559, Until Tue08/03/24 at 2102, 1. First Line Antiemetic. 2. Use Injection only if patient unable to tolerate oral medications., Nausea - 1st line 2203 (Given - Provider: Sussy Portillo RN) ondansetron (ZOFRAN-ODT) disintegrating tablet 4 mg(Linked Group 2) 4 mg, Oral, EVERY 6 HOURS PRN, Starting on Tue08/01/24 at 1559, Until Tue08/03/24 at 2102, Nausea - 1st line, 1. First Line Antiemetic. 2. Use PO form unless unable to tolerate PO medications, then use Injection 2203 (See Alternative - Provider: Sussy Portillo RN) polyethylene glycol (GLYCOLAX, MIRALAX) packet 17 g 17 g, Oral, 2 TIMES DAILY PRN, Starting on Tue08/01/24 at 1559, Until Tue08/03/24 at 210, Constipation - 1st line, Dilute dose in 120 - 240 mL of beverage.Hold for loose stools (loose, liquid, mucoid, soft, watery stool that takes the shape of the container) or greater than 2 moderate or larger stools in 24hrs senna (SENOKOT) tablet 8.6 mg 8.6 mg (1 Tablet), Oral, 2 TIMES DAILY PRN, Starting on Tue08/01/24 at 1559, Until Tue08/03/24 at 210, Constipation - 2nd line Linked Groups Order Group 1: potassium chloride IVPB 20 mEq 100 mL (COMPLETED)Jump to med 20 mEq, Intravenous, ONCE, 1 dose, On Tue08/01/24 at 1700, Administer over 2 Hours, Infuse each 20 mEq over 2 hours for a total dose of 40 mEq Followed by potassium chloride IVPB 20 mEq 100 mL (COMPLETED)Jump to med 20 mEq, Intravenous, ONCE, 1 dose, On Tue08/01/24 at 1900, Administer over 2 Hours, Infuse each 20 mEq over 2 hours for a total dose of 40 mEq Group 2: ondansetron (ZOFRAN-ODT) disintegrating tablet 4 mgJump to med 4 mg, Oral, EVERY 6 HOURS PRN, Starting on Tue08/01/24 at 1559, Until Tue08/03/24 at 2102, Nausea - 1st line, 1. First Line Antiemetic. 2. Use PO form unless unable to tolerate PO medications, then use Injection Or ondansetron (ZOFRAN) injection 4 mgJump to med 4 mg, Intravenous, EVERY 6 HOURS PRN, Starting on Tue08/01/24 at 1559, Until Tue08/03/24 at 2102, 1. First Line Antiemetic. 2. Use Injection only if patient unable to tolerate oral medications., Nausea - 1st line documented in this encounter Additional Health Concerns Infection Onset Date Last Indicated Resolved Time C. difficile Rule-Out 08/01/2024 08/01/20242023 7:56 PM CDT documented as of this encounter Care Teams Air Boatswain Relationship Specialty Start Date End Date Kellen Chu MD [address] [address] PCP - General Family Medicine 04/18/24 Markus Finley MD [address] [place] [address] Consulting Physician Medical Oncology 04/18/24 documented as of this encounter
--- OUTSIDE RECORDS SUMMARY | 2024-10-26 08:03 | XMS_ITS | Encounter Summary ---
Author Organization [facility] Care Team Providers Care Comparator Operator Name Role Phone Pritesh Chu MD Primary Care Provider [phone] Markus Finley MD Unavailable [phone] Encounter Details Date Type Department Care Team (Latest Contact Info) Description 08/10/2024 Travel Social History Tobacco Use Types Packs/Day Years Used Date Smoking Tobacco: Former Cigarettes 0.5 8.5 S tarted: 04/18/2016 Smokeless Tobacco: Never Alcohol Use Standard Drinks/Week Comments Yes 0 (1 standard drink = 0.6 oz pur e alcohol) [facility] Utilities Answer Date Recorded In the past 12 months has [facility], gas, oil, or water [employer] threatened to shut off services in your home? Patient declined 08/01/2024 Social Connection and Isolation Panel [NHANES] A nswer Date Recorded In a typical week, how many times do you talk on the phone with family, friends, or neighbors? Patient declined 08/01/2024 How often do you get togethe r with friends or relatives? Patient declined 08/01/2024 How often do you attend methodist or spiritism serv ices? Patient declined 08/01/2024 [...] medical care, and heating? 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
--- OUTSIDE RECORDS SUMMARY | 2024-10-26 08:03 | XMS_ITS | Encounter Summary ---
Author Organization [facility] Address [address] [place] [address] Phone Care Team Providers Care Qa Developer Name Role Phone Kellen Chu MD Primary Care Provider [phone] Markus Finley MD Unavailable [phone] Reason for Visit * Reason Comments Abnormal Study/Test Result * Auth/Cert (Routine) Specialty Diagnoses / Procedures Referred By Contac t Referred To Contact Diagnoses Hypokalemia ALEXX (acute kidney injury) ([facility]) Ranjan Stuart MD [address] [place] [address] Phone: tel: fax: Referral ID Status Reason Start Date Expiration Date Visits Re quested Visits Authorized [id number] 1 1 Encounter Details Date Type Department Care Team (Latest Contact Info) Description 07/25/2024 11:42 AM CDT - 07/30/2024 3:39 PM CDT Hospital Encounter [facility] Med Surg [address] [place] [address] Gael Morales MD [address] [place] [address] Ranjan Stuart MD [address] [place] [address] Brayan Petty MD [address] [place] [address] ALEXX (acute kidney injury) ([facility]) Discharge Disposition: Discharged to home or Selfcare [...] declined 07/25/2024 How often do you attend anglican or judaism serv ices? Patient declined 07/25/2024 Do you belong to any clubs o r organizations such as anglican groups, unions, fraternal or athletic groups, or [...] medical care, and heating? Patient declined 07/25/2024 [place] [employer] - Occupational Stress [...] any time in the past 12 m [facility], were you homeless or living in a senior care (including now)? Patient declined 07/25/2024 Comments No Sex and Gender Information Value Date Recorded Sex Assigned at Female 06/20/2024 8:39 AM CDT Legal Sex Female 9:04 AM CDT Gender Identity Female 06/20/2024 8:39 AM CDT Sexual Orientation Bisexual 06/20/2024 8: 39 AM CDT documented as of this encounter Last Filed Vital Signs Vital Sign Reading Time Taken Comments Blood Pressure 129/71 07/30/2024 5:00 AM CDT Pulse 54 07/29/2024 8:00 PM CDT Temperature 36.7 ??C (98 ??F) 07/30/2024 5:00 AM CDT Respiratory Rate 20 07/30/2024 5:00 AM CDT Oxygen Saturation 98% 07/30/2024 5:00 AM CDT Inhaled Oxygen Concentration - - Weight 116.8 kg (257 lb 8 oz) 07/25/2024 2:40 PM CDT Height 167.6 cm (5' 6 ) 07/25/2024 2:40 PM CDT Body Mass Index 41.56 07/25/2024 2:40 PM CDT documented in this encounter Functional Status * Audit-C Score Answer Date of Assessment Author -1 07/25/2024 3:04 PM CDT Dontrell Ruffin RN * Within the last year, have you been humiliated or emotionally abused in other ways by your partner or ex-partner? Answer Date of Assessment Author Patient declined 07/25/2024 3:04 PM CDT Raj Ruffin RN * Within the last year, have you been afraid of your partner or ex-partner? Answer Date of Assessment Author Patient declined 07/25/2024 3:04 PM CDT Charlie Ruffin RN * Within the last year, have you been raped or forced to have any kind of sexual activity by your partner or ex-partner? Answer Date of Assessment Author Patient declined 07/25/2024 3:04 PM CDT Charlie Ruffin RN * Within the last year, have you been kicked, hit, slapped, or otherwise physically hurt by your partner or ex-partner? Answer Date of Assessment Author Patient declined 07/25/2024 3:04 PM CDT Charlie Ruffin RN * Question Answer Date of Assessment Author Q1: How often do you have a drink containing alcohol? Patient declined 07/25/2024 3:04 PM Kiana Srinivasan RN Q2: How many drinks containing alcohol do you have on a typical day when you are drinking? Patient declined 07/25/2024 3:04 PM NELIAT Kiana Ruffin RN Q3: How often do you have six or more drinks on one occasion? Patient declined 07/25/2024 3:04 PM CDT Kiana Ruffin RN documented as of this encounter Discharge Summaries * Brayan Petty MD - 07/30/2024 11:53 AM CDT Images from the original note were not included. [facility] DISCHARGE SUMMARY Name: Erwin Hilton Age: 24 y.o. : 2000 Attending Physician: Brayan Petty MD Admission Date/Time: 07/25/2024 Discharge Date: 07/30/2024 Primary Care Physician: KELLEN CHU MD Discharging Provider: Brayan Petty MD INSTRUCTIONS FOR PHYSICIANS ON FOLLOW UP AFTER DISCHARGE: Follow-up with PCP: KELLEN CHU MD in 1 week Recommended Tests/Labs to order at follow-up: none Pending Labs/Path/Imaging: CBC, renal function panel on 08/01/2024 + 08/03/2024 Discharge Instructions: Discharge Condition: improved Disposition: Home Diet: Regular Diet Activity: activity as tolerated Primary Discharge Diagnosis: ALEXX (acute kidney injury) (HCC), hypothyroidism, malignant melanoma, pericardial effusion, GERD, diarrhea, hypokalemia, hyponatremia Discharge Diagnoses: As above Active Hospital Problems Diagnosis Date Noted Hypothyroidism [E03.9] 07/30/2024 Pericardial effusion [I31.39] 07/25/2024 Resolved Hospital Problems Diagnosis Date Noted Date Resolved ALEXX (acute kidney injury) (HCC) [N17.9] 07/25/2024 07/30/2024 Dehydration [E86.0] 07/25/2024 07/30/2024 Admitting Diagnoses: As above HOSPITAL COURSE: Erwin Hilton was admitted 07/25/2024 with ALEXX (acute kidney injury) (HCC) . Surgeries performed during stay: * No surgery found * Consults: Treatment Team: Consulting Physician: Brandy Campbell MD Patient was admitted on 07/25/2024 for evaluation of nausea vomiting and diarrhea symptoms related to recent chemotherapy. Physical examination, laboratory testing imaging studies have identified acute kidney injury/acute renal failure state. IV fluid therapy was provided and electrolyte replacement therapy were provided concurrently. As part of this process, diarrhea symptoms have stabilized. Oncology evaluation was obtained and coordination for management with Nephrology. Supportive care has led to stabilization of kidney function and electrolyte levels. Patient will continue prednisone taper for 7 days at 100 mg daily, and subsequently thereafter reduction to 80 mg daily and further taper regimen will be coordinated by patient's oncologist. As part of management, lab testings for hypothyroidism were verified and patient has been started on Synthroid; new prescription for Synthroid 100 mcg daily has been provided as part of discharge plan of care. Outpatient lab testing for CBC and renal function panel are scheduled for 08/01/2024 and 08/03/2024. Patient follow-up with PCP in 1 week, with oncologist as previously scheduled for 08/01/2024, andwith supervisor detasseling crew in 2 weeks. Exam Day of Discharge: Temp Av.2 ??F (36.8 ??C) Min: 98 ??F (36.7 ??C) Max: 98.4 ??F (36.9 ??C) BP Min: 128/64 Max: 137/80 Pulse Av.5 Min: 54 Max: 57 Heart Rate (Monitor) Av.7 Min: 49 Max: 74 Resp Av Min: 18 Max: 20 SpO2 Av.5 % Min: 96 % Max: 98 % General: alert, and in no distress. Neck: No JVD. CVS: RRR, no murmur. Chest: clear to auscultation, no wheezes, rales or rhonchi, symmetric air entry. Heart: regular rate and rhythm, S1, S2 normal, no murmur, click, rub or gallop Abdominal: soft, nontender, nondistended. Positive Bowel sounds. Extremities: no edema, no clubbing or cyanosis. Urology: deferred Lab / Imaging Review: Lab Results Component Value Date WBC 6.42 07/30/2024 HEMOGLOBIN 11.7 (L) 07/30/2024 HEMATOCRIT 34.8 (L) 07/30/2024 PLATELETCNT 269 07/30/2024 MCV 87.7 07/30/2024 Lab Results Component Value Date SODIUM 133 (L) 07/30/2024 POTASSIUM 3.5 07/30/2024 CHLORIDE 96 (L) 07/30/2024 CO2VEN 27 07/30/2024 ANIONGAP 13.5 07/30/2024 GLUCOSE 132 (H) 07/30/2024 BUN 15 07/30/2024 CREATININE 1.24 (H) 07/30/2024 BCRATIO8 12 07/30/2024 TOTALPROTEIN 8.4 (H) 07/25/2024 ALBUMIN 4.5 07/25/2024 CALCIUM 9.2 07/30/2024 TBIL 0.9 07/25/2024 SGOTAST 14 07/25/2024 SGPTALT 45 07/25/2024 ALKALINEPHO 90 07/25/2024 GFRNA 53 (L) 07/30/2024 GFRA >60 07/30/2024 No results found for: GLUCOSEPOCT Lab Results Component Value Date INR 1.1 06/27/2024 PTP 14.1 06/27/2024 Lab Results Component Value Date HGBA1C 5.5 07/24/2024 No results found for: [id number] No results found for: CPK , CPKI , CKMB , CKMBNI , CKMBPOCT , CKMBRELINDX , TROPONINI , POCTRP No results found for: FERRITIN No results found for: FOLATE No results found for: PHARTERIAL , PO2ART , VUR6YMD , CO2ART , O2ART Lab Results Component Value Date LACTICA 1.3 07/23/2024 US RENAL COMPLETE Result Date: 07/27/2024 IMPRESSION: [...] LIST: Medication List START taking these medications levothyroxine 100 MCG Tabs Commonly known as: SYNTHROID Take 1 Tablet by mouth every morning (before breakfast) for 90 days. Start taking on: July 31, 2024 CHANGE how you take these medications * predniSONE 20 MG Tabs Commonly known as: DELTASONE Take 4 Tablets by mouth daily. What changed: Another medication with the same name was added. Make sure you understand how and when to take each. * predniSONE 50 MG Tabs Commonly known as: DELTASONE Take 2 Tablets by mouth daily for 7 days. Taper regimen What changed: You were already taking a medication with the same name, and this prescription was added. Make sure you understand how and when to take each. * This list has 2 medication(s) that [...] MG-MCG(24) Tabs Generic drug: Norethin Wilfredo-Eth Estrad-FE omeprazole 40 MG Cap-del-rel Commonly known as: PriLOSEC TAKE 1 CAPSULE BY MOUTH DAILY ondansetron 4 MG Tab-disperse Commonly known as: ZOFRAN-ODT Take 2 Tablets by mouth every 8 hours as needed for Nausea - 1st line. potassium chloride SA 20 MEQ [id number]-[id number] Commonly known as: KLORCON M Take 2 Tablets by mouth 2 times daily. prochlorperazine 10 MG Tabs Commonly known as: COMPAZINE Take 1 Tablet by mouth every 6 hours as needed for Nausea - 2nd line. Zofran 4 MG Tabs Generic drug: ondansetron Where to Get Your Medications Information about where to get these medications is not yet available Ask your nurse or doctor about these medications levothyroxine 100 MCG Tabs predniSONE 50 MG Tabs Time spent on interview, examination, final orders, recommendations, and care coordination for thishospital discharge: Greater than 30 minutes spent in coordinating care --- 33 minutes Thank you very much for allowing the [facility] Adult Hospitalist Service to participate in the care of this patient. If you have any questions, please don't hesitate to call. Signed: Brayan Petty MD, 07/30/2024, 11:53 AM CDT documented in this encounter Discharge Instructions * Appointments* Brayan Petty MD - 07/30/2024 11:41 AM CDT Outpatient lab: CBC, renal function panel --- 07/12/2024 and 08/03/2024 Follow up with PCP in 1 week Follow up with supervisor detasseling crew in 2 weeks Follow-up with oncologist as previously scheduled for 08/01/2024 New medication: Synthroid 100 mcg daily Patient to utilize prednisone 100 mg daily for 7 days ( hold home regimen of prednisone 80 mg dailyduring this time, and new prescriptions for prednisone 100 mg daily *7 days are provided as apart of discharge). AFTER ITS COMPLETION, PATIENT TO RESTART HOME REGIMEN OF PREDNISONE 80 MG DAILY. FURTHER TAPER REGIMEN OF PREDNISONE THERAPY WILL BE COORDINATED BY PATIENT'S CONFIGURATION ANALYST/ONCOLOGIST, documented in this encounter Medications at Time [...] for 90 days. 90 Tablet 07/31/2024 4 prochlorperazine (COMPAZINE) 10 MG Tablet Take 1 Tablet by mouth every 6 hours as needed for Nausea - 2nd line. 30 Tablet 1 07/25/2024 omeprazole (PriLOSEC) 40 MG CAPSULE DELAYED RELEASE TAKE 1 CAPSULE BY MOUTH DAILY 90 Capsule 06/25/2024 4 ondansetron (Zofran) 4 MG Tablet Take 4 mg by mouth every 8 hours as needed for Nausea - 1st line. 4 ondansetron (ZOFRAN-ODT) 4 MG TABLET DISPERSIBLE Take 2 Tablets by mouth every 8 hours as needed for Nausea - 1st line. 30 Tablet 1 07/25/2024 4 potassium chloride SA (KLORCON M) 20 MEQ Tablet Controlled ReleaseIndication s:Metastatic melanoma (HCC) Take 2 Tablets by mouth 2 times daily. 90 Tablet 07/24/2024 4 predniSONE (DELTASONE) 20 MG Tablet Take 4 Tablets by mouth daily. 90 Tablet 2 07/03/2024 4 predniSONE (DELTASONE) 50 MG Tablet Take 2 Tablets by mouth daily for 7 days. Taper regimen 14 Tablet 07/30/2024 4 documented as of this encounter Progress Notes * Urbano Quiñonez MD - 07/30/2024 10:19 AM CDT Nephrology Progress Note [facility] ASSESSMENT: ALEXX-Probably Prerenal and Immunotherapy SE, R/o GN Proteinuria Hematuria Hypokalemia Hyponatremia Pericardial effusion Dehydration Malignant Melanoma on immunotherapy GERD PLAN: Will follow final pending serologies.Negative so far Renal function back to baseline As discussed with patient,No indication for biopsy and she is on steroids already as ATIN is high on differential Can be Dc'd to f/u with my office in 10-14 days SUBJECTIVE: No complaints Diarrhea better PO intake is good HPI Erwin Sunday Hilton is a 24 y.o. @RACE@ female with a PMHx Malignant melanoma and on immunotherapy,was admitted with ALEXX in the setting of N/V/D A 12 point review of systems is otherwise negative. The chart ,medications and allergies have been reviewed. OBJECTIVE: Vitals: 24hr Min/Max: Temp Min: 98 ??F (36.7 ??C) Max: 98.4 ??F (36.9 ??C) Pulse Min: 54 Max: 57 BP Min: 128/64 Max: 137/80 Resp Min: 18 Max: 20 SpO2 Min: 96 % Max: 98 % Most Recent: Vitals: 07/29/24 1400 07/29/24199907/29/24201707/30/24 0500 BP: 128/64 137/80 129/71 Pulse: 57 54 Resp: 18 20 18 20 Temp: 98.4 ??F (36.9 ??C) 98.3 ??F (36.8 ??C) 98 ??F (36.7 ??C) TempSrc: Tympanic Tympanic Tympanic SpO2: 96% 98% 98% 98% Weight: Height: I/O last 3 completed shifts: In: 4155 [I.V.:4155] Out: 0 I/O this shift: In: 236 [P.O.:236] Out: - Physical Exam: NAD, appropriate, alert No periorbital edema, oropharynx moist No thyromegaly HRRR without murmur Lungs B CTA without wheezes Abdomen benign without tenderness LE without edema No petechiae, purpura or livido No focal neurologic deficits Lab/Radiology/Diagnostic Review: Latest Reference Range & Units 07/29/24 04:30 07/30/24 04:23 SODIUM 136 - 145 mmol/L 134 (L) 133 (L) POTASSIUM 3.5 - 5.1 mmol/L 3.2 (L) 3.5 CHLORIDE 98 - 107 mmol/L 95 (L) 96 (L) CO2, VENOUS 22 - 30 mmol/L 27 27 ANION GAP <18.0 mmol/L 15.2 13.5 BUN 5 - 18 mg/dL 21 (H) 15 CREATININE, BLOOD 0.60 - 1.00 mg/dL 1.56 (H) 1.24 (H) GFR, ESTIMATED >=60 47 (L) >60 BUN/CREATININE RATIO 12 - 20 ratio 13 12 GLUCOSE 70 - 99 mg/dL 138 (H) 132 (H) CALCIUM 8.7 - 10.5 mg/dL 9.2 9.2 GFR, EST. NONAFRICAN >=60 41 (L) 53 (L) GFR, EST. >=60 49 (L) >60 (L): Data is abnormally low (H): Data is abnormally high Latest Reference Range & Units 07/29/24 04:30 07/30/24 04:23 WBC 4.00 - 12.00 10(3)/mcL 6.81 6.42 RBC 3.80 - 5.30 10(6)/mcL 4.32 3.97 HEMOGLOBIN (HGB) 12.0 - 15.8 g/dL 12.7 11.7 (L) HEMATOCRIT 36.0 - 47.0 % 37.3 34.8 (L) MCV 82.0 - 96.0 fL 86.3 87.7 MCH 26.0 - 34.0 pg 29.4 29.5 MCHC 31.0 - 36.0 g/dL 34.0 33.6 PLATELET COUNT 140 - 440 10(3)/mcL 308 269 RDW 11.8 - 15.5 % 14.0 13.9 MPV 9.7 - 12.4 fL 10.3 11.0 (L): Data is abnormally low Thank you for allowing me to participate in the care of your patient. Sincerely, Urbano Quiñonez M.D 10:19 AM CDT 07/30/2024 * Brayan Petty MD - 07/29/2024 8:42 PM CDT [facility] DA[facility] PROGRESS NOTE Erwin Hilton is a 24 y.o. female at Hospital LOS: 4 days Assessment: Active Hospital Problems Diagnosis Date Noted ALEXX (acute kidney injury) (HCC) 07/25/2024 Dehydration 07/25/2024 Pericardial effusion 07/25/2024 Resolved Hospital Problems No resolved problems to display. Vitals: 07/29/24 1500 07/29/24 1701 07/29/24 1900 07/29/242017 Temp: TempSrc: Heart Rate (Monitor): 61 63 61 Pulse: Resp: 18 BP: Height: Weight: SpO2: 98% I/O last 3 completed shifts: In: 5145 [I.V.:5145] Out: 0 Plan: Plan Acute kidney injury present on admission. Receiving IV fluid resuscitation and improving however not back to baseline yet. The patient had a completely normal kidney function 3 weeks ago. 07/27/2024 ---- no significant improvement and BUN creatinine level. IV fluid therapy continues. Nephrology consultation requested. Renal ultrasound obtained. 07/28/2024 --- improvement in BUN and creatinine levels over prior day. Nephrology follow-up evaluation with further laboratory testing requests submitted 07/29/2024 --- continuation of improving BUN and creatinine levels. Nephrology follow-up continue current management reassess Electrolyte imbalances including hypo natremia, hypokalemia, low sodium bicarbonate level which areall associated with the acute kidney injury. Continue fluid resuscitation with IV fluids and encourage oral intake. Follow the evolution of the serum electrolytes. Malignant melanoma. The patient is receiving immunotherapy. This is not being well tolerated. She would probably benefit from an empirical IV fluid resuscitation of 2-3 L a couple of days after each immunotherapy session to prevent her from going into renal failure. Pericardial effusion. The exact etiology is unclear and we have to wait for the results of the echoto determine how much her heart has been affected by the condition. History of GERD. Continue PPI therapy. Significant diarrhea. This seems to be reactional to the immuno therapy. We will continue symptomatic management. Per Hematology however, she needs to be on high-dose steroids to control the symptoms. Care plan discussed with: Patient and the care team Activity: OOB in Chair IV fluids: D5 half-normal saline with 100 mEq of sodium bicarbonate and 40 mEq of potassium chloride at 150 cc an hour. Diet: General Level of Care: Admit to inpatient and follow the evolution of the clinical status Anticipated Disposition at discharge: Home with no needs Social Determinants: Patient lives at home and is working on a regular basis VTE Prophylaxis: Lovenox 40mg Q24h Expected discharge date: Subjective: Interval History: Patient seen at bedside. No new complaints. Review of Systems: A 14 point comprehensive review of systems was negative, except as documented in HPI. Objective: Exam: General: alert, oriented and in no acute distress. Skin: normal coloration and turgor, no rashes. HEENT: normocephalic, atraumatic. Pupils equal, round and reactive to light. Extraocular movements intact. Oronasopharynx pink and moist, no lesion or exudate. Neck: Supple. No JVD, lymphadenopathy thyromegaly or carotid bruits auscultated. CVS: RRR, S1/S2 normal, no murmurs, gallops or rubs. Chest: clear to auscultation, no wheezes, rales or rhonchi, symmetric air entry and normal respiratory effort. Abdominal: soft, nontender, nondistended. Positive Bowel sounds, no organomegaly appreciated. Extremities: no edema, no clubbing or cyanosis. Neuro: CN 2-12 grossly intact, normal speech, no focal findings or movement disorder noted. Gait not tested.. Lab Results: No results found for: PHARTERIAL , PO2ART , [id number] , CO2ART , O2ART Lab Results Component Value Date WBC 6.81 07/29/2024 HEMOGLOBIN 12.7 07/29/2024 HEMATOCRIT 37.3 07/29/2024 PLATELETCNT 308 07/29/2024 MCV 86.3 07/29/2024 Lab Results Component Value Date SODIUM 134 (L) 07/29/2024 POTASSIUM 3.2 (L) 07/29/2024 CHLORIDE 95 (L) 07/29/2024 CO2VEN 27 07/29/2024 ANIONGAP 15.2 07/29/2024 GLUCOSE 138 (H) 07/29/2024 BUN 21 (H) 07/29/2024 CREATININE 1.56 (H) 07/29/2024 BCRATIO8 13 07/29/2024 TOTALPROTEIN 8.4 (H) 07/25/2024 ALBUMIN 4.5 07/25/2024 CALCIUM 9.2 07/29/2024 TBIL 0.9 07/25/2024 SGOTAST 14 07/25/2024 SGPTALT 45 07/25/2024 ALKALINEPHO 90 07/25/2024 GFRNA 41 (L) 07/29/2024 GFRA 49 (L) 07/29/2024 No results found for: CPK , CPKI , CKMB , CKMBNI , CKMBPOCT , CKMBRELINDX , TROPONINI , POCTRP No results found for: FOLATE Lab Results Component Value Date LACTICA 1.3 07/23/2024 No results found for: [id number] No results found for: FERRITIN No results found for: GLUCOSEPOCT EKG: EKG 12 LEAD Result Date: 07/24/[address] & T wave abnormality, consider lateral ischemia Abnormal ECG No previous ECGs available Confirmed by Emily Hall ([id number]) on 07/24/2024 9:19:48 AM Imaging: No results found. By: Brayan Petty MD, 07/29/2024 8:42 PM CDT * Urbano Quiñonez MD - 07/29/2024 8:23 AM CDT Nephrology Progress Note [facility] ASSESSMENT: ALEXX-Probably Prerenal and Immunotherapy SE, R/o GN Proteinuria Hematuria Hypokalemia Hyponatremia Pericardial effusion Dehydration Malignant Melanoma on immunotherapy GERD PLAN: Continue Parenteral fluids and evaluate in 24 hrs Continue steroids,as per Heme/Onc Replete K >3.5 Will follow serologies as requested SUBJECTIVE: Still has multiple episodes of diarrhea HPI Erwin Hilton is a 24 y.o. @RACE@ female with a PMHx Malignant melanoma and on immunotherapy,was admitted with ALEXX in the setting of N/V/D A 12 point review of systems is otherwise negative. The chart ,medications and allergies have been reviewed. OBJECTIVE: Vitals: 24hr Min/Max: Temp Min: 97.3 ??F (36.3 ??C) Max: 98.3 ??F (36.8 ??C) Pulse Min: 58 Max: 89 BP Min: 122/68 Max: 149/82 Resp Min: 20 Max: 22 SpO2 Min: 97 % Max: 100 % Most Recent: Vitals: 07/28/24 1447 07/28/24199907/28/24211207/29/24 0400 BP: 133/80 122/68 149/82 Pulse: 89 58 80 Resp: 22 20 20 20 Temp: 97.3 ??F (36.3 ??C) 98.3 ??F (36.8 ??C) 98.3 ??F (36.8 ??C) TempSrc: Tympanic Tympanic SpO2: 97% 99% 97% 100% Weight: Height: I/O last 3 completed shifts: In: 2485 [I.V.:2485] Out: 0 No intake/output data recorded. Physical Exam: NAD, appropriate, alert No periorbital edema, oropharynx moist No thyromegally HRRR without murmur Lungs B CTA without wheezes Abdomen ,active BS LE without edema No petechiae, purpura or livido No focal neurologic deficits Lab/Radiology/Diagnostic Review: Latest Reference Range & Units 07/29/24 04:30 SODIUM 136 - 145 mmol/L 134 (L) POTASSIUM 3.5 - 5.1 mmol/L 3.2 (L) CHLORIDE 98 - 107 mmol/L 95 (L) CO2, VENOUS 22 - 30 mmol/L 27 ANION GAP <18.0 mmol/L 15.2 BUN 5 - 18 mg/dL 21 (H) CREATININE, BLOOD 0.60 - 1.00 mg/dL 1.56 (H) GFR, ESTIMATED >=60 47 (L) BUN/CREATININE RATIO 12 - 20 ratio 13 GLUCOSE 70 - 99 mg/dL 138 (H) CALCIUM 8.7 - 10.5 mg/dL 9.2 GFR, EST. NONAFRICAN >=60 41 (L) GFR, EST. >=60 49 (L) (L): Data is abnormally low (H): Data is abnormally high Latest Reference Range & Units 07/29/24 04:30 WBC 4.00 - 12.00 10(3)/mcL 6.81 RBC 3.80 - 5.30 10(6)/mcL 4.32 HEMOGLOBIN (HGB) 12.0 - 15.8 g/dL 12.7 HEMATOCRIT 36.0 - 47.0 % 37.3 MCV 82.0 - 96.0 fL 86.3 MCH 26.0 - 34.0 pg 29.4 MCHC 31.0 - 36.0 g/dL 34.0 PLATELET COUNT 140 - 440 10(3)/mcL 308 RDW 11.8 - 15.5 % 14.0 MPV 9.7 - 12.4 fL 10.3 Thank you for allowing me to participate in the care of your patient. Sincerely, Urbano Quiñonez M.D 8:23 AM CDT 07/29/2024 * Brayan Petty MD - 07/28/2024 3:33 PM CDT [facility] DA[facility] PROGRESS NOTE Erwin Hilton is a 24 y.o. female at Hospital LOS: 3 days Assessment: Active Hospital Problems Diagnosis Date Noted ALEXX (acute kidney injury) (HCC) 07/25/2024 Dehydration 07/25/2024 Pericardial effusion 07/25/2024 Resolved Hospital Problems No resolved problems to display. Vitals: 07/28/24 1101 07/28/24 1300 07/28/24 1447 07/28/24 1501 Temp: 97.3 ??F (36.3 ??C) TempSrc: Heart Rate (Monitor): 89 91 82 Pulse: 89 Resp: 22 BP: 133/80 Height: Weight: SpO2: 97% I/O last 3 completed shifts: In: 2160 [P.O.:1160; I.V.:1000] Out: - Plan: Plan Acute kidney injury present on admission. Receiving IV fluid resuscitation and improving however not back to baseline yet. The patient had a completely normal kidney function 3 weeks ago. 07/27/2024 ---- no significant improvement and BUN creatinine level. IV fluid therapy continues. Nephrology consultation requested. Renal ultrasound obtained. 07/28/2024 --- improvement in BUN and creatinine levels over prior day. Nephrology follow-up evaluation with further laboratory testing requests submitted Electrolyte imbalances including hypo natremia, hypokalemia, low sodium bicarbonate level which areall associated with the acute kidney injury. Continue fluid resuscitation with IV fluids and encourage oral intake. Follow the evolution of the serum electrolytes. Malignant melanoma. The patient is receiving immunotherapy. This is not being well tolerated. She would probably benefit from an empirical IV fluid resuscitation of 2-3 L a couple of days after each immunotherapy session to prevent her from going into renal failure. Pericardial effusion. The exact etiology is unclear and we have to wait for the results of the echoto determine how much her heart has been affected by the condition. History of GERD. Continue PPI therapy. Significant diarrhea. This seems to be reactional to the immuno therapy. We will continue symptomatic management. Per Hematology however, she needs to be on high-dose steroids to control the symptoms. Care plan discussed with: Patient and the care team Activity: OOB in Chair IV fluids: D5 half-normal saline with 100 mEq of sodium bicarbonate and 40 mEq of potassium chloride at 150 cc an hour. Diet: General Level of Care: Admit to inpatient and follow the evolution of the clinical status Anticipated Disposition at discharge: Home with no needs Social Determinants: Patient lives at home and is working on a regular basis VTE Prophylaxis: Lovenox 40mg Q24h Expected discharge date: Subjective: Interval History: Patient seen at bedside. No new complaints. Nephrology evaluation with managementrecommendations provided. Improvement in BUN creatinine levels over prior day Review of Systems: A 14 point comprehensive review of systems was negative, except as documented in HPI. Objective: Exam: General: alert, oriented and in no acute distress. Skin: normal coloration and turgor, no rashes. HEENT: normocephalic, atraumatic. Pupils equal, round and reactive to light. Extraocular movements intact. Oronasopharynx pink and moist, no lesion or exudate. Neck: Supple. No JVD, lymphadenopathy thyromegaly or carotid bruits auscultated. CVS: RRR, S1/S2 normal, no murmurs, gallops or rubs. Chest: clear to auscultation, no wheezes, rales or rhonchi, symmetric air entry and normal respiratory effort. Abdominal: soft, nontender, nondistended. Positive Bowel sounds, no organomegaly appreciated. Extremities: no edema, no clubbing or cyanosis. Neuro: CN 2-12 grossly intact, normal speech, no focal findings or movement disorder noted. Gait not tested.. Lab Results: No results found for: PHARTERIAL , PO2ART , [id number] , CO2ART , O2ART Lab Results Component Value Date WBC 8.60 07/28/2024 HEMOGLOBIN 13.2 07/28/2024 HEMATOCRIT 37.8 07/28/2024 PLATELETCNT 313 07/28/2024 MCV 84.8 07/28/2024 Lab Results Component Value Date SODIUM 132 (L) 07/28/2024 POTASSIUM 3.3 (L) 07/28/2024 CHLORIDE 91 (L) 07/28/2024 CO2VEN 25 07/28/2024 ANIONGAP 19.3 (H) 07/28/2024 GLUCOSE 111 (H) 07/28/2024 BUN 21 (H) 07/28/2024 CREATININE 1.91 (H) 07/28/2024 BCRATIO8 11 (L) 07/28/2024 TOTALPROTEIN 8.4 (H) 07/25/2024 ALBUMIN 4.5 07/25/2024 CALCIUM 9.9 07/28/2024 TBIL 0.9 07/25/2024 SGOTAST 14 07/25/2024 SGPTALT 45 07/25/2024 ALKALINEPHO 90 07/25/2024 GFRNA 32 (L) 07/28/2024 GFRA 39 (L) 07/28/2024 No results found for: CPK , CPKI , CKMB , CKMBNI , CKMBPOCT , CKMBRELINDX , TROPONINI , POCTRP No results found for: FOLATE Lab Results Component Value Date LACTICA 1.3 07/23/2024 No results found for: [id number] No results found for: FERRITIN No results found for: GLUCOSEPOCT EKG: EKG 12 LEAD Result Date: 07/24/[address] & T wave abnormality, consider lateral ischemia Abnormal ECG No previous ECGs available Confirmed by Emily Hall ([id number]) on 07/24/2024 9:19:48 AM Imaging: No results found. By: Brayan Petty MD, 07/28/2024 3:33 PM CDT * Brayan Petty MD - 07/27/2024 11:00 PM CDT [facility] INPATIENT DAILY PROGRESS NOTE Erwin Hilton is a 24 y.o. female at Hospital LOS: 2 days Assessment: Active Hospital Problems Diagnosis Date Noted ALEXX (acute kidney injury) (HCC) 07/25/2024 Dehydration 07/25/2024 Pericardial effusion 07/25/2024 Resolved Hospital Problems No resolved problems to display. Vitals: 07/27/24 1701 07/27/24 1900 07/27/24 2018 07/27/24 2101 Temp: 99.4 ??F (37.4 ??C) TempSrc: Tympanic Heart Rate (Monitor): 92 77 77 Pulse: 91 Resp: 20 BP: 139/87 Height: Weight: SpO2: 97% I/O last 3 completed shifts: In: 3490 [P.O.:2490; I.V.:1000] Out: - Plan: Plan Acute kidney injury present on admission. Receiving IV fluid resuscitation and improving however not back to baseline yet. The patient had a completely normal kidney function 3 weeks ago. 07/27/2024 ---- no significant improvement and BUN creatinine level. IV fluid therapy continues. Nephrology consultation requested. Renal ultrasound obtained. Electrolyte imbalances including hypo natremia, hypokalemia, low sodium bicarbonate level which areall associated with the acute kidney injury. Continue fluid resuscitation with IV fluids and encourage oral intake. Follow the evolution of the serum electrolytes. Malignant melanoma. The patient is receiving immunotherapy. This is not being well tolerated. She would probably benefit from an empirical IV fluid resuscitation of 2-3 L a couple of days after each immunotherapy session to prevent her from going into renal failure. Pericardial effusion. The exact etiology is unclear and we have to wait for the results of the echoto determine how much her heart has been affected by the condition. History of GERD. Continue PPI therapy. Significant diarrhea. This seems to be reactional to the immuno therapy. We will continue symptomatic management. Per Hematology however, she needs to be on high-dose steroids to control the symptoms. Care plan discussed with: Patient and the care team Activity: OOB in Chair IV fluids: D5 half-normal saline with 100 mEq of sodium bicarbonate and 40 mEq of potassium chloride at 150 cc an hour. Diet: General Level of Care: Admit to inpatient and follow the evolution of the clinical status Anticipated Disposition at discharge: Home with no needs Social Determinants: Patient lives at home and is working on a regular basis VTE Prophylaxis: Lovenox 40mg Q24h Expected discharge date: Subjective: Interval History: Patient seen at bedside. No new complaints referred. Continuation of IV fluid therapy. Nephrology consultation and renal ultrasound obtained. Review of Systems: A 14 point comprehensive review of systems was negative, except as documented in HPI. Objective: Exam: General: alert, oriented and in no acute distress. Skin: normal coloration and turgor, no rashes. HEENT: normocephalic, atraumatic. Pupils equal, round and reactive to light. Extraocular movements intact. Oronasopharynx pink and moist, no lesion or exudate. Neck: Supple. No JVD, lymphadenopathy thyromegaly or carotid bruits auscultated. CVS: RRR, S1/S2 normal, no murmurs, gallops or rubs. Chest: clear to auscultation, no wheezes, rales or rhonchi, symmetric air entry and normal respiratory effort. Abdominal: soft, nontender, nondistended. Positive Bowel sounds, no organomegaly appreciated. Extremities: no edema, no clubbing or cyanosis. Neuro: CN 2-12 grossly intact, normal speech, no focal findings or movement disorder noted. Gait not tested.. Lab Results: No results found for: PHARTERIAL , PO2ART , [id number] , CO2ART , O2ART Lab Results Component Value Date WBC 8.14 07/27/2024 HEMOGLOBIN 14.3 07/27/2024 HEMATOCRIT 41.7 07/27/2024 PLATELETCNT 377 07/27/2024 MCV 86.5 07/27/2024 Lab Results Component Value Date SODIUM 131 (L) 07/27/2024 POTASSIUM 4.1 07/27/2024 CHLORIDE 97 (L) 07/27/2024 CO2VEN 22 07/27/2024 ANIONGAP 16.1 07/27/2024 GLUCOSE 139 (H) 07/27/2024 BUN 19 (H) 07/27/2024 CREATININE 2.23 (H) 07/27/2024 BCRATIO8 9 (L) 07/27/2024 TOTALPROTEIN 8.4 (H) 07/25/2024 ALBUMIN 4.5 07/25/2024 CALCIUM 9.8 07/27/2024 TBIL 0.9 07/25/2024 SGOTAST 14 07/25/2024 SGPTALT 45 07/25/2024 ALKALINEPHO 90 07/25/2024 GFRNA 27 (L) 07/27/2024 GFRA 33 (L) 07/27/2024 No results found for: CPK , CPKI , CKMB , CKMBNI , CKMBPOCT , CKMBRELINDX , TROPONINI , POCTRP No results found for: FOLATE Lab Results Component Value Date LACTICA 1.3 07/23/2024 No results found for: [id number] No results found for: FERRITIN No results found for: GLUCOSEPOCT EKG: EKG 12 LEAD Result Date: 07/24/[address] & T wave abnormality, consider lateral ischemia Abnormal ECG No previous ECGs available Confirmed by Emily Hall ([id number]) on 07/24/2024 9:19:48 AM Imaging: US RENAL COMPLETE Result Date: 07/27/2024 IMPRESSION: Normal kidneys. Debris within the bladder. Correlate with urinalysis. By: Brayan Petty MD, 07/27/2024 11:00 PM CDT * Brayan Petty MD - 07/27/2024 11:09 AM CDT Request for Documentation Clarification [facility] Erwin Hilton ; VISIT [id number] Query Response Sent: 07/27/24 11:09 CDT From: BRAYAN PETTY MD Query question: Based on the clinical information below, please select the most appropriate diagnosis Provider response: Morbid (severe) obesity: BMI 42.8 Original Query Sent: 07/27/24 08:51 CDT From: Betty Belle To: BRAYAN PETTY MD By submitting this query, we are seeking further clarification of documentation to accurately reflect all conditions that you monitored, evaluated, treated, or that may have extended the hospitalization or utilization of additional resources for care. Based on the clinical information below, please select the most appropriate diagnosis * Morbid (severe) obesity * Obesity * Overweight * Not overweight or obese * Other explanation of clinical findings Clinical Information * Patient Summary: H&P [4] by Esteban Mcgovern at 07/25/2024 18:51 24 y.o. female who is known to me from previous admission with a history of melanoma to her left foot status post surgery with skin graft and is and undergoing immunotherapy with oncologist Dr. Finley, history of depression, non alcoholic fatty liver disease, depression, who presented to [facility] with complaints of persistent dehydration. * Assessment * BMI: BMI 42.8 07/25/2024 11:50 * Risk/Related Comorbid Conditions: * Other: 07/25 H&P / Plan - ...Hyperglycemia-questionable due to diabetes Blood glucose 153, will check A1c and treat accordingly... Referenced Documents * H&P [4] - 07/25/24 18:51 * Marion Ch APRN, CNP - 07/27/2024 9:05 AM CDT Cardiology Progress Note: 07/27/24 Symptoms: Overnight complaints. No chest pain, no dyspnea. Vitals: 07/27/24 0301 07/27/24 0400 07/27/24 0500 07/27/24 0701 Temp: 98.7 ??F (37.1 ??C) TempSrc: Tympanic Heart Rate (Monitor): 73 78 89 Pulse: 83 Resp: 20 BP: 138/90 Height: Weight: SpO2: 100% I/O last 3 completed shifts: In: 1929 [P.O.:1929] Out: - No intake/output data recorded. Exam: HEENT: No pallor or Icterus. Cardiac: PMI and JVP normal, S1 and S2 normal, no murmur, no gallop or rub Abdomen: Soft, nontender, BS active Lungs: Clear to auscultation. Respirations unlabored Extremities: No clubbing, cyanosis. No edema. Pedal pulses 2+ Neuro: A&O x4 Medication: Current Facility-Administered Medications Medication Dose Route Frequency Provider Last Rate Last Admin acetaminophen (TYLENOL) tablet 650 mg 650 mg Oral Q4H PRN Esteban Mcgovern APRN, CNP Or acetaminophen (TYLENOL) suppository 650 mg 650 mg Rectal Q4H PRN Esteban Mcgovern APRN, CNP calcium carbonate (TUMS) chewable tablet 1,000 mg 1,000 mg Oral Q8H PRN Esteban Mcgovern APRN, CNP dextrose 5 % and 0.45% sodium chloride 1,000 mL with potassium chloride 40 mEq, sodium bicarbonate 100 mEq infusion Intravenous Continuous Ranjan Stuart MD 150 mL/hr at 07/27/24 0422 New Bag at 07/27/24 0422 diphenoxylate-atropine (LOMOTIL) 2.5-0.025 MG per tablet 1 Tablet 1 Tablet Oral 4x Daily PRN Esteban Mcgovern APRN, CNP 1 Tablet at 07/26/24 1717 enoxaparin (LOVENOX) injection 40 mg 40 mg Subcutaneous Q12H EDWIN Esteban Mcgovern APRN, CNP levothyroxine (SYNTHROID) tablet 100 mcg 100 mcg Oral QAM AC Esteban Mcgovern APRN, CNP 100 mcg at 07/26/24 0819 melatonin tablet 3 mg 3 mg Oral Nightly PRN Esteban Mcgovern APRN, CNP methylPREDNISolone Na Suc (PF) (Solu-MEDROL) injection 125 mg 125 mg Intravenous Q12H Eh Morales MD 125 mg at 07/26/24 2130 nicotine (NICODERM CQ) 21 MG/24HR patch 1 Patch 1 Patch Transdermal Daily PRN Esteban Mcgovern APRN, CNP ondansetron (ZOFRAN-ODT) disintegrating tablet 4 mg 4 mg Oral Q6H PRN Esteban Mcgovern APRN, CNP Or ondansetron (ZOFRAN) injection 4 mg 4 mg Intravenous Q6H PRN Esteban Mcgovern APRN, CNP 4 mg at 07/26/24 0819 pantoprazole (PROTONIX) tablet 40 mg 40 mg Oral Daily Esteban Mcgovern APRN, CNP 40 mg at 07/26/24 0819 Prochlorperazine Edisylate (COMPAZINE) injection 10 mg 10 mg Intravenous Q6H PRN Esteban Mcgovern APRN, CNP 10 mg at 07/25/24 1806 Labs: No results found for: CPK , CPKI , CKMB , CKMBNI , CKMBPOCT , CKMBRELINDX , TROPONINI , POCTRP No results for input(s): BNP , BNPPOCT in the last 72 hours. Recent Labs Units 07/27/24 0436 07/26/24 1858 07/26/24 1204 07/25/24 2135 07/25/24 1102 SODIUM mmol/L 131* 127* 128* < > 134* POTASSIUM mmol/L 4.1 3.9 4.0 < > 2.5* CHLORIDE mmol/L 97* 102 101 < > 93* CO2VEN mmol/L 22 16* 16* < > 22 ANIONGAP mmol/L 16.1 12.9 15.0 < > 21.5* GLUCOSE mg/dL 139* 131* 131* < > 153* BUN mg/dL 19* 22* 24* < > 30* CREATININE mg/dL 2.23* 2.15* 2.34* < > 3.31* BCRATIO8 ratio 9* 10* 10* < > 9* TOTALPROTEIN g/dL -- -- -- -- 8.4* ALBUMIN g/dL -- -- -- -- 4.5 CALCIUM mg/dL 9.8 9.3 9.3 < > 10.2 TBIL mg/dL -- -- -- -- 0.9 SGOTAST U/L -- -- -- -- 14 SGPTALT U/L -- -- -- -- 45 ALKALINEPHO U/L -- -- -- -- 90 GFRNA 27* 28* 26* < > 17* GFRA 33* 34* 31* < > 21* < > = values in this interval not displayed. Recent Labs Units 07/27/24 0436 07/26/24 0445 07/25/24 1102 WBC 10(3)/mcL 8.14 9.53 9.60 HEMOGLOBIN g/dL 14.3 15.2 17.6* HEMATOCRIT % 41.7 43.8 50.8* PLATELETCNT 10(3)/mcL 377 381 401 MCV fL 86.5 85.7 84.9 Lab Results Component Value Date MAGNESIUM 2.2 07/26/2024 No results found for: DDIMER No results for input(s): CHOLESTEROL , TRIGLYCRIDES , HDLCHOLESTE , LDL in the last 72 hours. No results for input(s): INR , PTP in the last 72 hours. Test: Results for orders placed or performed during the hospital encounter of 07/25/24 ADULT TRANS THORACIC ECHO 2D COMPLETE Collection Time: 07/26/24 4:02 PM Result Value AV Peak Grad mmHg 4.93 Mean Aortic Valve Gradient (MAVG) 3 LV end ramin diam cm 3.09 LV end sys diam cm 2.02 Aortic Root Diam cm 3 LA vol index ml/m2 12 LVOT Peak Fredi m/sec 0.998 AV Peak Fredi m/sec 1.11 MVA by PHT cm2 5 E/A Ratio 1.11 E/E' 8.7 AV Area (VTI) cm2 2.81 SEPTUM DIASTOLIC CM 0.81 PW DIASTOLIC CM 1.17 LA VOLUME 27.5 Narrative Transthoracic Echocardiography Report (TTE) Patient name PAINTER ERWIN Brand Cecile 2000 Patient ID ([facility]) [id number] Indications: Pericardial effusion. Study Date07/26/2024 Technical quality: [...] lbs. BMI (BSA) 41.58 kg/m^2 (2.23 m^2) Ammonia Solution Preparer Bayron Bruno R Room 241 Interpreting [place] Referring Physician Wale Physician Isabel Diaz *Note: Due to a large number of results and/or encounters for the requested time period, some results have not been displayed. A complete set of results can be found in Results Review. @LASTSTRESSRESULT@ @LASTECGRESULT@ Impressions/Assessment/ Plan: Pericardial effusion Melanoma Obesity -patient was stable symptoms. Review of echocardiogram shows normal LV size and function, LVEF 55-60%. Normal RV size and function. No significant valvular disease. Mild pericardial effusion noted. No further cardiac testing indicated at this time. -patient to continue with lifestyle modification, weight loss for better control of BP, recommend outpatient BP management with PCP. By: Marion Ch APRN, HARISH; 07/27/2024, 9:05 AM CDT * Ranjan Stuart MD - 07/26/2024 4:[address] [facility] INPATIENT DAILY PROGRESS NOTE Erwin Hilton is a 24 y.o. female at Hospital LOS: 1 day Subjective: Interval History: The patient is feeling better. Her bowel movements have slowed down finally and she is not in any acute distress. Review of Systems: A 14 point comprehensive review of systems was negative except what is documented in interval history above. Objective: Exam: General: Well developed, well nourished, in no distress, BMI of 41.56 Skin: Normal appearance, normal turgor, no rashes, status post removal of the melanoma from the dorsum of the left would. There is recurrence of the lesions at the border of the skin graft and alongside the anterior of her left branham. She has also had metastatic disease in her left groin lymph nodes. HEENT: Normocephalic, atraumatic, no flaring Eyes: nonicteric, intact extra occular movement, PERRL Neck: normal, supple, no lymphadenopathy Cardiovascular: regular rate and rhythm, S1, S2 normal, no murmur, click, rub or gallop Lungs: clear to ausculation, normal respirations, normal precautions Abdominal: soft, non-tender; bowel sounds normal; no masses, no organomegaly Musculoskeletal: no deformities, joint mobility appears intact, no clubbing, melanoma of the dorsumof the left foot Neuro: Non-focal, CN intact, sensory and motor intact Psychological: alert and oriented X3, appropriate mood and affect, Intact judgement and memory Current Medications: No recently discontinued medications to reconcile Medication Modifications: Optimize the IV fluids according to the evolution of the serum electrolytes Lab Results: No results found for: PHARTERIAL , PO2ART , [id number] , CO2ART , O2ART Lab Results Component Value Date WBC 9.53 07/26/2024 HEMOGLOBIN 15.2 07/26/2024 HEMATOCRIT 43.8 07/26/2024 PLATELETCNT 381 07/26/2024 MCV 85.7 07/26/2024 Lab Results Component Value Date SODIUM 128 (L) 07/26/2024 POTASSIUM 4.0 07/26/2024 CHLORIDE 101 07/26/2024 CO2VEN 16 (L) 07/26/2024 ANIONGAP 15.0 07/26/2024 GLUCOSE 131 (H) 07/26/2024 BUN 24 (H) 07/26/2024 CREATININE 2.34 (H) 07/26/2024 BCRATIO8 10 (L) 07/26/2024 TOTALPROTEIN 8.4 (H) 07/25/2024 ALBUMIN 4.5 07/25/2024 CALCIUM 9.3 07/26/2024 TBIL 0.9 07/25/2024 SGOTAST 14 07/25/2024 SGPTALT 45 07/25/2024 ALKALINEPHO 90 07/25/2024 GFRNA 26 (L) 07/26/2024 GFRA 31 (L) 07/26/2024 Lab Results Component Value Date LACTICA 1.3 07/23/2024 EKG: EKG 12 LEAD Result Date: 07/24/[address] & T wave abnormality, consider lateral ischemia Abnormal ECG No previous ECGs available Confirmed by Emily Hall ([id number]) on 07/24/2024 9:19:48 AM Imaging: No results found. I independently reviewed images and test results. My personal interpretation is: No new imaging studies done today Assessment: Active Hospital Problems Diagnosis Date Noted ALEXX (acute kidney injury) (HCC) 07/25/2024 Dehydration 07/25/2024 Pericardial effusion 07/25/2024 Resolved Hospital Problems No resolved problems to display. Vitals: 07/26/24 1101 07/26/24 1214 07/26/24 1301 07/26/24 1501 Temp: 97.4 ??F (36.3 ??C) TempSrc: Heart Rate (Monitor): (!) 104 (!) 106 (!) 126 (!) 112 Pulse: Resp: 20 BP: 126/87 Height: Weight: SpO2: 97% O2 Device: None (Room air) I/O last 3 completed shifts: In: 2600 [P.O.:600; I.V.:2000] Out: - BMI: Body mass index is 41.56 kg/m??. Lines: Port-A-Cath Tubes: None Catheters: None Other providers notes reviewed: Cardiology notes reviewed Plan: Plan Acute kidney injury present on admission. Receiving IV fluid resuscitation and improving however not back to baseline yet. The patient had a completely normal kidney function 3 weeks ago. Electrolyte imbalances including hypo natremia, hypokalemia, low sodium bicarbonate level which areall associated with the acute kidney injury. Continue fluid resuscitation with IV fluids and encourage oral intake. Follow the evolution of the serum electrolytes. Malignant melanoma. The patient is receiving immunotherapy. This is not being well tolerated. She would probably benefit from an empirical IV fluid resuscitation of 2-3 L a couple of days after each immunotherapy session to prevent her from going into renal failure. Pericardial effusion. The exact etiology is unclear and we have to wait for the results of the echoto determine how much her heart has been affected by the condition. History of GERD. Continue PPI therapy. Significant diarrhea. This seems to be reactional to the immuno therapy. We will continue symptomatic management. Per Hematology however, she needs to be on high-dose steroids to control the symptoms. Care plan discussed with: Patient and the care team Activity: OOB in Chair IV fluids: D5 half-normal saline with 100 mEq of sodium bicarbonate and 40 mEq of potassium chloride at 150 cc an hour. Diet: General Level of Care: Admit to inpatient and follow the evolution of the clinical status Anticipated Disposition at discharge: Home with no needs Social Determinants: Patient lives at home and is working on a regular basis VTE Prophylaxis: Lovenox 40mg Q24h Expected discharge date: 07/27/2024 or 07/28/2024 based on the clinical evolution By: Ranjan Stuart MD, 07/26/2024 4:13 PM CDT documented in this encounter H&P Notes * Esteban Mcgovern, CHANNEL MARKETING SPECIALIST, HOUSE REPAIRER - 07/25/2024 5:55 PM CDT [facility] ADMISSION HISTORY & PHYSICAL HPI: Erwin Hilton is a 24 y.o. female who is known to me from previous admission with a history of melanoma to her left foot status post surgery with skin graft and is and undergoing immunotherapy with oncologist Dr. Finley, history of depression, non alcoholic fatty liver disease, depression, who presented to [facility] with complaints of persistent dehydration. Patient was recently hospitalized here at [facility] from. 07/23-07/24 from nausea vomiting diarrhea causing dehydration. Was treated with IV hydration and was able to tolerate p.o. and was discharged home yesterday. Patient reports after she got home she continued to have diarrhea with nausea vomiting and was not able to tolerate any thin p.o. therefore she was brought back to the emergency room for further treatment. Laboratory data reveals sodium 134, potassium 2.5, chloride 93, anion gap 21.5, BUN 30, creatinine 3.31, glucose 153, TSH 135.164, H&H 17.6/50.8, otherwise unremarkable. CT abdomen and pelvis showed a fluid-filled colon without wall thickening or pericolonic stranding findings can be seen in the setting of diarrheal illness with no free air or fluid, pericardial effusion slightly increased compared to prior study, hypoattenuation adjacent to the falciform ligament within the liver a sites common for fatty infiltration . Admitted for further management. Allergies: has No Known Allergies. Home Medications: Prior to Admission Medications Prescriptions Last Dose Informant Patient Reported? Taking? HYDROcodone-acetaminophen (NORCO) 5-325 MG Tablet No No Sig: Take 1 Tablet by mouth every 4 hours as needed for Moderate or more severe pain. 24 1-20 MG-MCG(24) Tablet 07/18/2024 Yes Yes Sig: Take 1 Tablet by mouth daily. diphenoxylate-atropine (LOMOTIL) 2.5-0.025 MG Tablet 07/18/2024 No Yes Sig: Take 1 Tablet by mouth 4 times daily as needed for Diarrhea. omeprazole (PriLOSEC) 40 MG CAPSULE DELAYED RELEASE 07/18/2024 No Yes Sig: TAKE 1 CAPSULE BY MOUTH DAILY ondansetron (ZOFRAN-ODT) 4 MG TABLET DISPERSIBLE 07/18/2024 No Yes Sig: Take 2 Tablets by mouth every [...] times daily. predniSONE (DELTASONE) 20 MG Tablet 07/18/2024 No Yes Sig: Take 4 Tablets by mouth daily. prochlorperazine (COMPAZINE) 10 MG Tablet No No [...] in her father. Review of Systems: Reports persistent N/V/D. Denies lightheaded, dizziness blurred vision. Denies Fever, chills, SOB, cough, sore throat. Denies Chest pain, heart palpitations. Denies abdominal pain, denies constipation, Denies nausea, vomiting, diarrhea, or constipation. Denies LE swelling. Physical Exam: VITALS:Temp Av.9 ??F (36.6 ??C) Min: 97.4 ??F (36.3 ??C) Max: 98.2 ??F (36.8 ??C) BP Min: 99/80 Max: 134/84 Pulse Av Min: 87 Max: 129 Heart Rate (Monitor) Av.3 Min: 85 Max: 121 Resp Av.4 Min: 13 Max: 22 SpO2 Av.1 % Min: 92 % Max: 99 % No intake/output data recorded. Weight: Wt Readings from Last 1 Encounters: 07/25/24 257 lb 8 oz (116.8 kg) General: well developed well nourished, alert, [...] on exam. Gait not tested Data Review: CT ABDOMEN PELVIS W/O CONTRAST Result Date: [...] recent CT examination. Continued imaging surveillance recommended. XR CHEST SINGLE VIEW PORTABLE Result Date: 06/27/2024 IMPRESSION: No acute pulmonary process. Lab Results Component Value Date WBC 9.60 07/25/2024 HEMOGLOBIN 17.6 (H) 07/25/2024 HEMATOCRIT 50.8 (H) 07/25/2024 PLATELETCNT 401 07/25/2024 MCV 84.9 07/25/2024 Lab Results Component Value Date SODIUM 134 (L) 07/25/2024 POTASSIUM 2.5 (LL) 07/25/2024 CHLORIDE 93 (L) 07/25/2024 CO2VEN 22 07/25/2024 ANIONGAP 21.5 (H) 07/25/2024 GLUCOSE 153 (H) 07/25/2024 BUN 30 (H) 07/25/2024 CREATININE 3.31 (H) 07/25/2024 BCRATIO8 9 (L) 07/25/2024 TOTALPROTEIN 8.4 (H) 07/25/2024 ALBUMIN 4.5 07/25/2024 CALCIUM 10.2 07/25/2024 TBIL 0.9 07/25/2024 SGOTAST 14 07/25/2024 SGPTALT 45 07/25/2024 ALKALINEPHO 90 07/25/2024 GFRNA 17 (L) 07/25/2024 GFRA 21 (L) 07/25/2024 No results found for: PHARTERIAL , PO2ART , FGR2RTG , CO2ART , O2ART No results found [...] liver disease Miscarriage Miscarriage Melanoma (HCC) Depression ALEXX (acute kidney injury) (HCC) Dehydration Pericardial effusion Plan: Acute kidney injury-due to severe dehydration High anion gap metabolic acidosis BUN 30, creatinine 3.31, anion gap 21.5, chloride 93, CO2 22 Started on aggressive IV hydration and will follow labs Profound hypokalemia-due to diarrhea Potassium 2.5, treated with supplements and will follow labs Will follow serial BNP level Monitor on telemetry New onset Hypothyroidism TSH level elevated 135.164 Will start Synthroid 100 mcg daily Hyperglycemia-questionable due to diabetes Blood glucose 153, will check A1c and treat accordingly Hypovolemic hyponatremia Sodium 134, will start IV hydration and follow labs polycythemia due to dehydration H&H 17.6/50.8, receiving IV hydration Incidental pericardial effusion Noted on CT abdomen and pelvis as pericardial effusion slightly increased compared to previous study Will check an echocardiogram and consult Cardiology Chronic diarrhea-due to immunotherapy Recent stool cultures were negative Resume home L[place]otil Non alcoholic fatty liver disease LFTs are currently stable Advance Care Planning: Aggregate face to face time discussing end of life advance care planning with patient and/or family and/or Power of Bed And Breakfast Innkeeper approximately 16 minutes. Discussed CPR/Intubation/Treatment Goals/Quality of life/Intensity of Care. Patient desires: Full Code VTE Prophylaxis: Lovenox 40mg Q24h Thank you very much for allowing the [facility] to participate in the care of this patient By: Esteban Mcgovern APRN, CNP, 07/25/2024, 5:55 PM CDT Primary Care Physician: KELLEN CHU MD Cosigned by Ranjan Stuart MD at 07/26/2024 11:11 AM CDT Associated attestation - Ranjan Stuart MD - 07/26/2024 11:11 AM CDT ADULT HOSPITALIST ATTENDING I have seen and evaluated the patient and discussed the patient's management with SETTER MOLDING AND COREMAKING MACHINES Esteban Mcgovern. I agree with the history, physical, assessment, and plan as outlined in the attached note. Based on the clinical evolution, we may be able to discharge her today or tomorrow. Ranjan Stuart MD 07/26/2024 11:11 AM CDT documented in this encounter Consult Notes * Urbano Quiñonez MD - 07/28/2024 8:13 AM CDTAssociated Order(s): IP CONSULT TO NEPHROLOGY Nephrology Consult [facility] Reason for Consult: @NEPHROCONSULTREASON@ Requesting Provider: Brayan Petty MD ASSESSMENT: ALEXX-Probably Prerenal,Immunotherapy SE, R/o GN Proteinuria Hematuria Hypokalemia Hyponatremia Pericardial effusion Dehydration Malignant Melanoma on immunotherapy GERD PLAN: RP US reviewed. Will get serologies as ordered to r/o GN Quantitate proteinuria Continue parenteral fluids Replete K. HPI: Erwin Hilton is a 24 y.o. @RACE@ female with a PMHx Malignant melanoma and on immunotherapy,was admitted with ALEXX in the setting of N/V/D Review of Systems: a 12 point review of systems is otherwise negative. Past Medical History: Past Medical History Positives Diagnosis Date Depression Melanoma (HCC) Miscarriage 07/09/2022 Miscarriage 12/2022 Non-alcoholic fatty liver disease Obesity Allergies: No Known Allergies Medications: No current facility-administered medications on file prior to encounter. Current Outpatient Medications on File Prior to Encounter Medication Sig Dispense Refill diphenoxylate-atropine (LOMOTIL) 2.5-0.025 MG Tablet Take 1 Tablet by mouth 4 times daily as neededfor Diarrhea. 60 Tablet 2 HYDROcodone-acetaminophen (NORCO) 5-325 MG Tablet Take 1 Tablet by mouth every 4 hours as needed for Moderate or more severe pain. 20 Tablet 0 24 1-20 MG-MCG(24) Tablet Take 1 Tablet by mouth daily. omeprazole (PriLOSEC) 40 MG CAPSULE DELAYED RELEASE [...] Tablets by mouth daily. 90 Tablet 2 prochlorperazine (COMPAZINE) 10 MG Tablet Take 1 Tablet by mouth every 6 hours as needed for Nausea- 2nd line. 30 Tablet 1 Family History: Family History Problem Relation Age of Onset Prostate Cancer Father Chronic Obstructive Pulmonary Disease Father Social History: Social History Tobacco Use Smoking status: Former Current packs/day: 0.50 Average packs/day: 0.5 packs/day for 8.3 years (4.1 ttl pk-yrs) Types: Cigarettes Start date: 04/18/2016 Smokeless tobacco: Never Substance Use Topics Alcohol use: Yes OBJECTIVE: Vitals: 24hr Min/Max: Temp Min: 97.1 ??F (36.2 ??C) Max: 99.4 ??F (37.4 ??C) Pulse Min: 91 Max: 113 BP Min: 122/82 Max: 139/87 Resp Min: 20 Max: 20 SpO2 Min: 95 % Max: 97 % Most Recent: Vitals: 07/27/24 0756 07/27/24 1357 07/27/24201707/28/24 0502 BP: 133/90 139/87 122/82 Pulse: 91 (!) 113 Resp: 20 20 20 Temp: 97.1 ??F (36.2 ??C) 99.4 ??F (37.4 ??C) 99.4 ??F (37.4 ??C) TempSrc: Tympanic Tympanic SpO2: 97% 95% 97% 96% Weight: Height: Physical Exam: NAD, appropriate, alert No periorbital edema, oropharynx moist No thyromegally, no JVD HRRR without murmur.No rub Lungs B CTA without wheezes Abdomen benign without tenderness LE without edema No petechiae, purpura or livido No focal neurologic deficits Lab/Radiology/Diagnostic Review: Latest Reference Range & Units 07/27/24 04:36 07/28/24 03:34 SODIUM 136 - 145 mmol/L 131 (L) 132 (L) POTASSIUM 3.5 - 5.1 mmol/L 4.1 3.0 (L) CHLORIDE 98 - 107 mmol/L 97 (L) 93 (L) CO2, VENOUS 22 - 30 mmol/L 22 26 ANION GAP <18.0 mmol/L 16.1 16.0 BUN 5 - 18 mg/dL 19 (H) 18 CREATININE, BLOOD 0.60 - 1.00 mg/dL 2.23 (H) 1.91 (H) GFR, ESTIMATED >=60 31 (L) 37 (L) BUN/CREATININE RATIO 12 - 20 ratio 9 (L) 9 (L) GLUCOSE 70 - 99 mg/dL 139 (H) 127 (H) CALCIUM 8.7 - 10.5 mg/dL 9.8 9.2 GFR, EST. NONAFRICAN >=60 27 (L) 32 (L) GFR, EST. >=60 33 (L) 39 (L) (L): Data is abnormally low (H): Data is abnormally high Latest Reference Range & Units 07/27/24 04:36 07/28/24 03:34 WBC 4.00 - 12.00 10(3)/mcL 8.14 8.60 RBC 3.80 - 5.30 10(6)/mcL 4.82 4.46 HEMOGLOBIN (HGB) 12.0 - 15.8 g/dL 14.3 13.2 HEMATOCRIT 36.0 - 47.0 % 41.7 37.8 MCV 82.0 - 96.0 fL 86.5 84.8 MCH 26.0 - 34.0 pg 29.7 29.6 MCHC 31.0 - 36.0 g/dL 34.3 34.9 PLATELET COUNT 140 - 440 10(3)/mcL 377 313 RDW 11.8 - 15.5 % 14.1 14.0 Thank you for allowing me to participate in the care of your patient. Sincerely, Urbano Quiñonez M.D 8:13 AM CDT 07/28/2024 * Marion Ch, CHANNEL MARKETING SPECIALIST, HOUSE REPAIRER - 07/26/2024 12:31 PM CDTAssociated Order(s): IP CONSULT TO CARDIOLOGY CARDIOLOGY CONSULTATION NOTE Erwin Hilton is a 24 y.o. female admitted 07/25/2024 11:42 AM (LOS: 1 day) CHIEF COMPLAINT Pericardial effusion HPI: Erwin Hilton is a 24 y.o. female who presents with the above. Past medical historysignificant for melanoma to left foot status post surgery with skin graft, currently undergoing immunotherapy with Oncology, depression, nonalcoholic fatty liver disease, depression who presented to [facility] with complaints of persistent dehydration, episodes of nausea, vomiting, diarrhea illness. Upon ED evaluation patient noted to have potassium of 2.5, creatinine 3.31, CT abdomen pelvis did show findings consistent with pericardial effusion. Cardiology was consulted for further evaluation and recommendations. Patient reports stable symptoms during examination. She denies chest pain, dyspnea, palpitations, near-syncope or syncope. Currently noted improvement in heart rate with IV fluids, blood pressure stable. Discussed evaluation with echocardiogram and further recommendations pending those results. Past Medical/ Social/Family History: Medications Prior to Admission Medication Sig Dispense Refill diphenoxylate-atropine (LOMOTIL) 2.5-0.025 MG Tablet Take 1 Tablet by mouth 4 times daily as neededfor Diarrhea. 60 Tablet 2 HYDROcodone-acetaminophen (NORCO) 5-325 MG Tablet Take 1 Tablet by mouth every 4 hours as needed for Moderate or more severe pain. 20 Tablet 0 1-20 MG-MCG(24) Tablet Take 1 Tablet by mouth daily. omeprazole (PriLOSEC) 40 MG CAPSULE DELAYED RELEASE [...] Tablets by mouth daily. 90 Tablet 2 prochlorperazine (COMPAZINE) 10 MG Tablet Take 1 Tablet by mouth every 6 hours as needed for Nausea- 2nd line. 30 Tablet 1 No Known Allergies Past Medical History Positives [...] Session: Patient declined Stress: Patient Declined (07/25/2024) [employer] - Occupational Stress Questionnaire Feeling of Stress : Patient declined Recent Concern: Stress - Stress Concern Present (06/27/2024) [employer] - Occupational Stress Questionnaire Feeling of Stress : To some extent Social Integration: Patient Declined (07/25/2024) Social Connection and Isolation Panel [NHANES] Frequency of Communication with Friends and Family: Patient declined Frequency of Social Gatherings with Friends and Family: Patient declined Attends Nondenominational Services: Patient declined Active Member of Clubs [...] More than three times a week Attends Nondenominational Services: Never Active Member of Clubs or [...] Homeless in the Last Year: Patient declined Family History Problem Relation Age of Onset Prostate Cancer Father Chronic Obstructive Pulmonary Disease Father Review of Systems: All systems were reviewed and are negative other than what is noted in HPI. Objective: BP 126/87 Pulse 87 Temp 97.4 ??F (36.3 ??C) Resp 20 Ht 5' 6 (1.676 m) Wt 257 lb 8 oz (116.8 kg) LMP 07/02/2024 SpO2 97% BMI 41.56 kg/m?? Physical Exam: General appearance: alert, no distress, cooperative, appears stated age Head: Normocephalic, without obvious abnormality, atraumatic Eyes: conjunctivae/corneas clear. Pupils equal, round, reactive to light. Extraocular Movements intact. Neck: supple, symmetrical, trachea midline and no adenopathy Lungs: clear to auscultation bilaterally Heart: regular rate and rhythm, S1, S2 normal, no murmur, click, rub or gallop Abdomen: soft, non-tender. Bowel sounds normal. No masses, no organomegaly Extremities: extremities normal, atraumatic, no cyanosis or edema Pulses: 2+ and symmetric Musculoskeletal: Normal. Neurologic: Alert and oriented X 3. Normal strength and tone. Cardiographics: ECG: Sinus tachycardia . Echocardiogram: Ordered Imaging: CT abdomen pelvis: IMPRESSION: Fluid-filled colon, without wall thickening or [...] CT examination. Continued imaging surveillance recommended. Lab Review: CBC: Lab Results Component Value Date WBC 9.53 07/26/2024 HEMOGLOBIN 15.2 07/26/2024 HEMATOCRIT 43.8 07/26/2024 PLATELETCNT 381 07/26/2024 BMP: Lab Results Component Value Date SODIUM 131 (L) 07/26/2024 POTASSIUM 3.7 07/26/2024 CHLORIDE 99 07/26/2024 CO2VEN 19 (L) 07/26/2024 GLUCOSE 119 (H) 07/26/2024 BUN 26 (H) 07/26/2024 CREATININE 2.62 (H) 07/26/2024 CREATININE 2.59 (H) 07/26/2024 CREATININE 2.58 (H) 07/25/2024 CALCIUM 10.3 07/26/2024 Coagulation: Lab Results Component Value Date INR 1.1 06/27/2024 Cardiac markers: No results found for: CPK , CKMB , CKMBPOCT , CKMBRELINDX , TROPONINI , POCTRP No results found for: CHOLESTEROL , TRIGLYCRIDES , HDLCHOLESTE , LDL Lab Results Component Value Date SGPTALT 45 07/25/2024 No results found for: BNP , BNPPOCT Assessment/ Plan: Pericardial effusion ALEXX Hypokalemia due to diarrhea Hypovolemia -patient continue with supportive care for dehydration and hypokalemia. Noted improvement and metabolic derangements, patient reports feeling significantly better. -we will get echocardiogram for further assessment of pericardial effusion, size, and plan pending those findings. Patient was stable vital signs no indication for tamponade on clinical evaluation atthis time. See orders for recommended meds By: Marion Ch APRN, CNP, 07/26/2024, 12:31 PM CDT Primary Care Physician: KELLEN CHU MD documented in this encounter ED Notes * Graciela Clark RN - 07/25/2024 2:20 PM CDT Patient is being transported to room 241 at this time. No changes in patient condition noted. VS and condition stable at time of transport. * Rebeca Davis RN - 07/25/2024 1:30 PM CDT Patient resting on stretcher with no distress noted. Denies needs at this time. Family at bedside. Call light within reach. Continue to monitor. * Rebeca Davis RN - 07/25/2024 12:49 PM CDT Pt medicated per provider orders. Pt educated on intended effects and side effects of medication and verbalized understanding, able to provide teach back of education. * Rebeca Davis RN - 07/25/2024 12:35 PM CDT Patient returned from CT * Rebeca Davis RN - 07/25/2024 12:24 PM CDT Patient to CT via stretcher * Gael Morales MD - 07/25/2024 12:14 PM CDTAssociated Order(s): EKG 12 LEAD; Critical Care Chief Complaint Patient presents with Abnormal Study/Test Result 24-year-old female with a history of metasatic melanoma presents to the emergency room with ongoingnausea vomiting diarrhea. Patient was currently undergoing immunotherapy and received her 3rd treatment about a week ago. She has been on steroids to treat the refractory diarrhea caused by the immuno therapy over the past 3 weeks. Patient was admitted to the hospital overnight he was released yesterday due to the diarrhea. She reports return of symptoms after being discharged from the hospital. She does report some mild mid abdominal pain. She presented to the oncology clinic today and had laboratory work that are significant for new onset renal failure and hypokalemia. Patient was sent to the emergency room for IV fluids, IV potassium replacement and admission to the hospital. I did speak to her oncologist Dr Finley who requested the patient be started on IV Solumedrol 125mg q [address] as well due to her concerns for possible colitis. Patient reports she was last on antibiotics about 3 weeks ago. She will consult during this admission. Patient received dose of IV Zofran and Solu-Medrol at the infusion center prior to being sent to the ER. The history is provided by the patient and a parent. Abnormal Study/Test Result Current Facility-Administered Medications Medication Dose Route Frequency Provider Last Rate Last Admin [START ON 07/26/2024] methylPREDNISolone Na Suc (PF) (Solu-MEDROL) injection 125 mg 125 mg Intravenous Q12H Gael Morales MD METHYLPREDNISOLONE NA SUC (PF) 125 MG IJ SOLR potassium chloride IVPB 20 mEq 100 mL 20 mEq Intravenous Once Gael Morales MD 20 mEq at 07/25/24 1244 Followed by potassium chloride IVPB 20 mEq 100 mL 20 mEq Intravenous Once Geal Morales MD Current Outpatient Medications Medication Sig Dispense Refill diphenoxylate-atropine (LOMOTIL) 2.5-0.025 MG Tablet Take 1 Tablet by mouth 4 times daily as neededfor Diarrhea. 60 Tablet 2 HYDROcodone-acetaminophen (NORCO) 5-325 MG Tablet Take 1 Tablet by mouth every 4 hours as needed for Moderate or more severe pain. 20 Tablet 0 Junel Fe 24 1-20 MG-MCG(24) Tablet Take 1 Tablet by mouth daily. omeprazole (PriLOSEC) 40 MG CAPSULE DELAYED RELEASE TAKE 1 CAPSULE BY MOUTH DAILY 90 Capsule 0 ondansetron (Zofran) 4 MG Tablet Take 4 mg by mouth every 8 hours as needed for Nausea - 1st line. ondansetron (ZOFRAN-ODT) 4 MG TABLET DISPERSIBLE Take 2 Tablets by mouth every 8 hours as needed for Nausea - 1st line. 30 Tablet 1 polyethylene glycol (GLYCOLAX, MIRALAX) 17 g Pack Take 1 Packet by mouth 2 times daily as needed for Constipation - 1st line. Dissolve in 4-8 oz of liquid. Indications: Constipation 90 Packet 0 potassium chloride SA (KLORCON M) 20 MEQ Tablet Controlled Release Take 2 Tablets by mouth 2 times daily. 90 Tablet 0 predniSONE (DELTASONE) 20 MG Tablet Take 4 Tablets by mouth daily. 90 Tablet 2 prochlorperazine (COMPAZINE) 10 MG Tablet Take 1 Tablet by mouth every 6 hours as needed for Nausea- 2nd line. 30 Tablet 1 senna (SENOKOT) 8.6 MG Tablet Take 1 Tablet by mouth 2 times daily as needed for Constipation - 2ndline. 30 Tablet 0 No Known Allergies Past Medical History Positives Diagnosis Date Depression Melanoma (HCC) Miscarriage 07/09/2022 Miscarriage 12/2022 Non-alcoholic fatty liver disease Obesity Past Surgical History: Procedure Laterality Date APPENDECTOMY 2005 ONC ACCESS PORTACATH SKIN GRAFT 08/25/2023 Social [...] of Health Financial Resource Needs: Patient Declined (07/23/2024) Overall Financial Resource Strain (CARDIA) Difficulty of Paying Living Expenses: Patient declined Food Insecurity Needs: Patient Declined (07/23/2024) Hunger Vital Sign Worried About Running Out of Food in the Last Year: Patient declined Ran Out of Food in the Last Year: Patient declined Transportation Needs: Patient Declined (07/23/2024) PRAPARE - Transportation Lack of Transportation (Medical): Patient declined Lack of Transportation (Non-Medical): Patient declined Physical Activity: Patient Declined (07/23/2024) Exercise Vital Sign Days of Exercise per Week: Patient declined Minutes of Exercise per Session: Patient declined Stress: Patient Declined (07/23/2024) [employer] - Occupational Stress Questionnaire Feeling of Stress : Patient declined Recent Concern: Stress - Stress Concern Present (06/27/2024) [employer] - Occupational Stress Questionnaire Feeling of Stress : To some extent Social Integration: Patient Declined (07/23/2024) Social Connection and Isolation Panel [NHANES] Frequency of Communication with Friends and Family: Patient declined Frequency of Social Gatherings with Friends and Family: Patient declined Attends Nondenominational Services: Patient declined Active Member of Clubs [...] More than three times a week Attends Nondenominational Services: Never Active Member of Clubs or Organizations: No Attends Club or Organization Meetings: Never Marital Status: Never Intimate Partner Violence: Patient Declined (07/23/2024) Humiliation, Afraid, Rape, and Kick questionnaire Fear of Current or Ex-Partner: Patient declined Emotionally Abused: Patient declined Physically Abused: Patient declined Sexually Abused: Patient declined Housing Stability: Patient Declined (07/23/2024) Housing Stability Vital Sign Unable to Pay for Housing in the Last Year: Patient declined Number of Times Moved in the Last Year: 1 Homeless in the Last Year: Patient declined BP 128/85 Pulse 100 Temp 98.2 ??F (36.8 ??C) Resp 19 Ht 5' 6 (1.676 m) Wt 265 lb (120.2 kg) LMP 07/02/2024 SpO2 92% BMI 42.77 kg/m?? Review of Systems All other systems reviewed and are negative. Physical Exam Vitals and nursing note reviewed. Constitutional: General: She is not in acute distress. Appearance: Normal appearance. She is not ill-appearing or toxic-appearing. Comments: Awake alert and mildly ill-appearing with pale skin color. HENT: Right Ear: External ear normal. Left Ear: External ear normal. Nose: Nose normal. Mouth/Throat: Mouth: Mucous membranes are moist. Comments: Pale oral mucosa. Eyes: General: No scleral icterus. Extraocular Movements: Extraocular movements intact. Pupils: Pupils are equal, round, and reactive to light. Cardiovascular: Rate and Rhythm: Normal rate and regular rhythm. Heart sounds: No murmur heard. Pulmonary: Effort: Pulmonary effort is normal. No respiratory distress. Breath sounds: Normal breath sounds. No wheezing or rales. Abdominal: General: Abdomen is flat. There is no distension. Palpations: Abdomen is soft. Tenderness: There is no abdominal tenderness. There is no guarding. Musculoskeletal: General: Normal range of motion. Cervical back: Normal range of motion. No rigidity. Comments: Trace bilateral lower extremity edema. Skin: General: Skin is warm and dry. Findings: No rash. Neurological: General: No focal deficit present. Mental Status: She is alert and oriented to person, place, and time. Mental status is at baseline. Psychiatric: Behavior: Behavior normal. EKG 12 LEAD Performed by: aGel Morales MD Authorized by: Gael Morales MD ECG interpreted by ED Physician in the absence of a wire cutter: yes Interpretation: Interpretation: abnormal Rate: ECG rate: 125 ECG rate assessment: tachycardic Rhythm: Rhythm: sinus tachycardia Ectopy: Ectopy: none QRS: QRS axis: Left Comments: Sinus tachycardia with poor R-wave progression and ST and T-wave abnormalities. No ectopy, no STEMI. Critical Care Performed by: Gael Morales MD Authorized by: Gael Morales MD Critical care provider statement: Critical care time (minutes): 35 Critical care was necessary to treat or prevent imminent or life-threatening deterioration of the following conditions: Renal failure and metabolic crisis Critical care was time spent personally by me on the following activities: Development of treatmentplan with patient or surrogate, discussions with consultants, discussions with primary provider, evaluation of patient's response to treatment, examination of patient, obtaining history from patient or surrogate, ordering and performing treatments and interventions, ordering and review of laboratory studies, ordering and review of radiographic studies, pulse oximetry, re-evaluation of patient's condition and review of old charts I assumed direction of critical care for this patient from another provider in my specialty: no Care discussed with: admitting provider Recent Results (from the past 24 hour(s)) CMP (COMPREHENSIVE METABOLIC PANEL) Result Value Ref Range SODIUM 134 (L) 136 - 145 mmol/L POTASSIUM 2.5 (LL) 3.5 - 5.1 mmol/L CHLORIDE 93 (L) 98 - 107 mmol/L CO2, VENOUS 22 22 - 30 mmol/L ANION GAP 21.5 (H) <18.0 mmol/L GLUCOSE 153 (H) 70 - 99 mg/dL BUN 30 (H) 5 - 18 mg/dL CREATININE, BLOOD 3.31 (H) 0.60 - 1.00 mg/dL BUN/CREATININE RATIO 9 (L) 12 - 20 ratio TOTAL PROTEIN 8.4 (H) 6.3 - 8.2 g/dL ALBUMIN 4.5 3.5 - 5.0 g/dL A/G RATIO 1.2 1.0 - 2.2 CALCIUM 10.2 8.7 - 10.5 mg/dL T BILI 0.9 0.2 - 1.2 mg/dL SGOT (AST) 14 5 - 34 U/L SGPT (ALT) 45 0 - 55 U/L ALKALINE PHOSPHATASE 90 40 - 150 U/L IS THE PATIENT REQUIRED TO BE FASTING? No GFR, ESTIMATED 19 (L) >=60 GFR, EST. 21 (L) >=60 GFR, EST. NONAFRICAN 17 (L) >=60 THYROID STIMULATING HORMONE (TSH) Result Value Ref Range TSH 135.164 (H) 0.300 - 5.000 mIU/L MAGNESIUM (MG) Result Value Ref Range MAGNESIUM 2.1 1.6 - 2.6 mg/dL CBC WITH AUTO DIFFERENTIAL Result Value Ref Range WBC 9.60 4.00 - 12.00 10(3)/mcL RBC 5.98 (H) 3.80 - 5.30 10(6)/mcL HEMOGLOBIN (HGB) 17.6 (H) 12.0 - 15.8 g/dL HEMATOCRIT (HCT) 50.8 (H) 36.0 - 47.0 % MCV 84.9 82.0 - 96.0 fL MCH 29.4 26.0 - 34.0 pg MCHC 34.6 31.0 - 36.0 g/dL PLATELET COUNT 401 140 - 440 10(3)/mcL RDW 14.4 11.8 - 15.5 % MPV 9.6 (L) 9.7 - 12.4 fL NRBC PER 100 WBC 0 RESULTS ARE CONSISTENT WITH PERIPHERAL SMEAR REVIEW Yes MANUAL DIFFERENTIAL Result Value Ref Range BANDS % 1.0 % NEUTROPHILS % 72.0 47.0 - 73.0 % LYMPHOCYTES % 19.0 18.0 - 42.0 % MONOCYTES % 8.0 4.0 - 12.0 % NEUTROPHILS ABSOLUTE 7.01 1.60 - 7.70 10(3)/mcL LYMPHOCYTES ABSOLUTE 1.82 1.30 - 3.20 10(3)/mcL MONOCYTES ABSOLUTE 0.77 0.20 - 1.00 10(3)/mcL TOXIC GRANULATION 1+ VACUOLATED PMN 1+ LARGE PLATELETS 1+ RBC MORPH STATUS Normal Imaging Results CT ABDOMEN PELVIS W/O CONTRAST (Final result) Result time 07/25/24 12:57:29 Final result by Flora Hernandez MD (07/25/24 12:57:29) Impression: IMPRESSION: Fluid-filled colon, without wall thickening or [...] recent CT examination. Continued imaging surveillance recommended. Narrative: EXAM DESCRIPTION: CT ABDOMEN PELVIS W/O CONTRAST REASON FOR STUDY: Patient reports last immunotherapy was on the . Reports she was here on Tuesday and has had nausea and vomiting since. H/o metastatic melanoma, NAFLD TECHNIQUE: CT scan of the abdomen and pelvis performed without intravenous and without oral contrast using helical scanning technique. Reconstructed coronal and sagittal MPR images reviewed. All images stored on PACS. Automated exposure control was used as a dose optimization technique for this examination. COMPARISON: 06/27/2024 from [facility]. PET-CT 04/03/2024. FINDINGS: The sensitivity for detection of visceral lesions is diminished without the use of intravenous contrast. LOWER CHEST: No consolidation within either lung base. No pleural effusion. There is a pericardial effusion, slightly increased compared to the prior examination on 06/27/2024. LIVER: The liver is stable in size compared to the prior examination. Hypoattenuation adjacent to the falciform ligament is in a location common for focal fatty deposition, though this is not visualized on the recent prior examination. Evaluation for mass limited on this noncontrast study. GALLBLADDER: Partially contracted when compared to prior study. No densely calcified stones. BILE DUCTS: Within normal limits. SPLEEN: No focal mass. PANCREAS: No identified cystic or solid masses. No significant calcifications. No adjacent inflammation or peripancreatic fluid collections. Pancreatic duct not dilated. ADRENALS: Normal. KIDNEYS/URINARY TRACT: The kidneys are symmetric in size. No hydronephrosis or obstructing urolithiasis. No hydroureter. The urinary bladder is decompressed. GI: The stomach is unremarkable. Small bowel loops are within normal limits in caliber. There is no obstruction. Distal small bowel is fluid-filled. The colon is fluid filled throughout its course. No evidence of obstruction. No significant colonic wall thickening and no pericolonic stranding. The appendix is not well delineated on this study. No secondary signs of appendicitis. Correlate with surgical history. PERITONEUM: There is no free intraperitoneal air. There is no free fluid. There are scattered mesenteric lymph nodes, somewhat prominent, stable to slightly diminished in size compared to the prior examination on 06/27/2024. These nodes could be reactive or neoplastic. RETROPERITONEUM: There is no retroperitoneal mass or adenopathy. REPRODUCTIVE: The uterus is within normal limits in size. The ovaries are symmetric in size. VASCULATURE: The abdominal aorta is normal in caliber. MUSCULOSKELETAL: There is no acute osseous abnormality. OTHER: No other abnormality. THIS IS AN ELECTRONICALLY VERIFIED FINAL REPORT 07/25/2024 12:55 PM - Electronically signed by Flora Hernandez M.D. TW: JENNY Report ID: [id number] Reading Location: [place] [address] Medical Decision Making Impression: Patient presents with complaints of diarrhea, dehydration with the acute kidney injury and low potassium. Notably, further history obtained fromDr Finley and prior records from recent hospitalization were reviewed. Patient's history of malignant melanoma has impacted care and subsequentmedical decision making. Differential diagnosis includes - acute kidney injury, medication side effect, colitis, renal failure . I considered additional work up for possible intra- abdominal pathology, but did not pursue due to alternative diagnosis more likely and signs and symptoms on exam and initial findings not consistent with these disease processes. Tests were independently reviewed and interpreted and imaging independently visualized and interpreted. ED evaluation is significant for hypokalemia, acute kidney injury. Interventions and treatments in the ER IV fluids Plan for admission to telemetry . Discussed the case withDr Finley and Dr Stuart. Clinical Impression 1. ALEXX (acute kidney injury) (HCC) 2. Hypokalemia Disposition: Admit * Rebeca Davis RN - 07/25/2024 12:[address] Morales at bedside * Rebeca Davis RN - 07/25/2024 11:59 AM CDT Patient is resting in room with call light at bedside. Patient informed about wait time and verbalizes understanding. Patient denies needs at this time and verbalizes understanding that RN will complete hourly rounding. * Rebeca Davis RN - 07/25/2024 11:51 AM CDT Arrived via wheelchair through triage from Cancer center. Patient reports last immunotherapy was . Reports she was here on Tuesday and has had nausea and vomiting since. Patient reports calling this AM and went to outpatient for labs and fluids. Reports instructed to come to ER for low potassium. documented in this encounter Miscellaneous Notes * Interdisciplinary - Elliott Hdz RN - 07/30/2024 3:35 PM CDT Pt. Verbalized understanding to discharge instructions. Pt. Left with all patient belongings. Pt. Taken off the floor by wheelchair to go home with no needs. * Interdisciplinary - Nell Abraham - 07/30/2024 1:32 PM CDT Heat Reader - Transition Arrangements Coordinated Note - Transition Specialists do not coordinate all transitions or aspects of transitions- CONFIRM PATIENT READINESS WITH TEXTILE WORKER PRIOR TO DISCHARGE Pill Maker notified: yes, notified Rama at the following time 1200 via secure chat. Additional Details of Discharge Plan: Follow up Hospital Follow-Up Appointment Information: Readmission risk level (if calculated) is: 3-Medium High (Note: TS makes the PRIMARY Hospital Follow Up appointment for Medium-High, High Risk and Heart Failure patients ONLY) The office of Dr Kellen Apple will be reaching out to patient with appointment, non osf facility. * Interdisciplinary - Nell Abraham - 07/30/2024 1:31 PM CDT Heat Reader Coordination Note SUMMARY - Heat Reader currently working the potential transition plan(s): 07/29/2024 @ 12:42 PM CDT ([facility], TS) Follow Up Appointment (See detail within the referral type(s) below for information on what is needed to complete coordination Note - the Transition Specialists do not coordinate all transition types - please direct all question regarding hospital transition to the Pill Maker) Readmission risk level (if calculated) is: 3-Medium High Primary Care Provider: PCP: KELLEN CHU MD Primary Medical Coverage: [employer] Secondary Medical Coverage: N/A Hospital Follow-Up appointment(s) scheduling status: The office of Dr Kellen Apple will be reaching out to patient with appointment, non osf facility. * Plan of Care - Elliott Hdz RN - 07/30/2024 12:54 PM CDT Problem: Adult Inpatient Plan of Care Goal: Plan of Care Review Outcome: Outcome Achieved Goal: Optimal Comfort and Wellbeing Outcome: Outcome Achieved Goal: Readiness for Transition of Care Outcome: Outcome Achieved Problem: Electrolyte Imbalance Goal: Electrolyte Balance Outcome: Outcome Achieved Problem: Acute Kidney Injury/Impairment Goal: Fluid and Electrolyte Balance Outcome: Outcome Achieved Goal: Improved Oral Intake Outcome: Outcome Achieved Goal: Effective Renal Function Outcome: Outcome Achieved * Georgie - Rama Márquez - 07/30/2024 12:37 PM CDT Case Management Discharge Readiness Note Erwin Perez 's readmission risk level (if calculated) is: 3-Medium High Patient Class: Inpatient Consecutive Inpatient Midnights 4 Actual day(s) of hospital stay (compare to working DRG): 5 Discharge: Final home discharge arrangements: home with no services Mode of transportation at discharge:: Family car Additional Information regarding DC Plan: Patient is returning home without any services Discharge Plan Notification/ Verification Patient's Phone numbers: [phone] (home) Patient's preferred discharge phone number for follow up appointments, etc: (if different from above): N/A Information for bedside nurse to call report and fax PACT Document in Sticky Note?: Not applicable - no external home care agencies or hemodialysis Nursing notified: YES Anil GIRALDO via [employer] chat Decision Maker / Caregiver Information Decision Maker: Patient is assumed to be the medical decision maker Grit Removal Operator/Active Directory Architect Name: Lyndsaytiana Hesster Patient/ Decision Maker and family notified: Erwin Perez Family/ Caregiver's readiness, willingness and ability to support patient with anticipated community discharge plan: Did not speak with family/caregiver during this contact. IM Letter Documentation, if applicable N/A - Payor is not Medicare * Interdisciplinary - Elliott Hdz, RN - 07/30/2024 9:18 AM CDT Pt. Is resting in bed with call light in reach and IV fluids infusing. Pt. Has no complaints of pain at this time. Pt. Reported to have slight amount of blood in stool this morning. Pt. Full assessment complete see flow sheet. * Plan of Care - Nidia Sow RN - 07/30/2024 3:31 AM CDT Problem: Adult Inpatient Plan of Care Goal: Plan of Care Review Outcome: Ongoing (see interventions/notes) Flowsheets Taken 07/30/2024 0330 by NIDIA Today's Goal: Patient will get at least 4 hours of sleep this shift. Outcome Evaluation: Patient did get at least 4 hours of sleep this shift. Taken 07/29/2024 1627 by KAYCEE Progress: improving Taken 07/29/2024 1600 by KAYCEE Plan of Care Reviewed With: patient Taken 07/27/2024 1602 by KAYCEE Does the patient need assistance with discharge and/or transitioning to the next level of care?: Yes, case management already following Goal: Optimal Comfort and Wellbeing Outcome: Ongoing (see interventions/notes) Intervention: Monitor Pain and Promote Comfort Flowsheets (Taken 07/29/2024 1600 by KAYCEE) Pain Management Interventions: care clustered diversional activity provided pain management plan reviewed with patient/caregiver pillow support provided position adjusted Intervention: Provide Person-Centered Care Flowsheets (Taken 07/29/2024 1930) Trust Relationship/Rapport: care explained choices provided emotional support provided empathic listening provided thoughts/feelings acknowledged Goal: Readiness for Transition of Care Outcome: Ongoing (see interventions/notes) Intervention: Mutually Develop Transition Plan Flowsheets Taken 07/29/2024 1600 by KAYCEE Patient/Family Anticipates Transition to: home Taken 07/25/2024 1657 by SHERLEY Current Outpatient/Agency/Support Group: infusion therapy, outpatient Patient/Family Anticipated Services at Transition: outpatient care Problem: Electrolyte Imbalance Goal: Electrolyte Balance Outcome: Ongoing (see interventions/notes) Intervention: Monitor and Manage Electrolyte Imbalance Flowsheets (Taken 07/29/2024 1600 by KAYCEE) Fluid/Electrolyte Management: electrolyte supplement adjusted Problem: Acute Kidney Injury/Impairment Goal: Fluid and Electrolyte Balance Outcome: Ongoing (see interventions/notes) Intervention: Monitor and Manage Fluid and Electrolyte Balance Flowsheets (Taken 07/29/2024 1600 by KAYCEE) Fluid/Electrolyte Management: electrolyte supplement adjusted Goal: Improved Oral Intake Outcome: Ongoing (see interventions/notes) Intervention: Promote and Optimize Oral Intake Flowsheets (Taken 07/29/2024 0312) Oral Nutrition Promotion: physical activity promoted Nutrition Interventions: food preferences provided Goal: Effective Renal Function Outcome: Ongoing (see interventions/notes) Intervention: Monitor and Support Renal Function Flowsheets Taken 07/29/2024 1930 Medication Review/Management: medications reviewed Taken 07/29/2024 0312 Stabilization Measures: fluid resuscitation initiated * Plan of Care - Kaycee Galarza RN - 07/29/2024 4:29 PM CDT Problem: Adult Inpatient Plan of Care Goal: Plan of Care Review Outcome: Ongoing (see interventions/notes) Flowsheets Taken 07/29/2024 1627 Progress: improving Outcome Evaluation: Pt continues to have D5 1/2 NS with 40KCL and 100 MEQ Na+ bicarb infusing without diff. Taken 07/29/2024 1600 Plan of Care Reviewed With: patient Today's Goal: Na+ and KCL+ Taken 07/27/2024 1602 Does the patient need assistance with discharge and/or transitioning to the next level of care?: Yes, case management already following Goal: Optimal Comfort and Wellbeing Outcome: Ongoing (see interventions/notes) Intervention: Monitor Pain and Promote Comfort Flowsheets (Taken 07/29/2024 1600) Pain Management Interventions: care clustered diversional activity provided pain management plan reviewed with patient/caregiver pillow support provided position adjusted Intervention: Provide Person-Centered Care Flowsheets (Taken 07/29/2024 0846 by CLIFF) Trust Relationship/Rapport: therapeutic presence provided Goal: Readiness for Transition of Care Outcome: Ongoing (see interventions/notes) Intervention: Mutually Develop Transition Plan Flowsheets Taken 07/29/2024 1600 by KAYCEE Patient/Family Anticipates Transition to: home Taken 07/25/2024 1657 by SHERLEY Current Outpatient/Agency/Support Group: infusion therapy, outpatient Patient/Family Anticipated Services at Transition: outpatient care Problem: Electrolyte Imbalance Goal: Electrolyte Balance Outcome: Ongoing (see interventions/notes) Intervention: Monitor and Manage Electrolyte Imbalance Flowsheets (Taken 07/29/2024 1600) Fluid/Electrolyte Management: electrolyte supplement adjusted Problem: Acute Kidney Injury/Impairment Goal: Fluid and Electrolyte Balance Outcome: Ongoing (see interventions/notes) Intervention: Monitor and Manage Fluid and Electrolyte Balance Flowsheets (Taken 07/29/2024 1600) Fluid/Electrolyte Management: electrolyte supplement adjusted Goal: Improved Oral Intake Outcome: Ongoing (see interventions/notes) Intervention: Promote and Optimize Oral Intake Flowsheets (Taken 07/29/2024 0312 by NIDIA) Oral Nutrition Promotion: physical activity promoted Nutrition Interventions: food preferences provided Goal: Effective Renal Function Outcome: Ongoing (see interventions/notes) Intervention: Monitor and Support Renal Function Flowsheets Taken 07/29/2024 0846 by CLIFF Medication Review/Management: medications reviewed Taken 07/29/2024 0312 by NIDIA Stabilization Measures: fluid resuscitation initiated * Interdisciplinary - Luz Cruz - 07/29/2024 12:42 PM CDT Heat Reader Coordination Note SUMMARY - Heat Reader currently working the potential transition plan(s): 07/29/2024 @ 12:42 PM CDT (, TS) Follow Up Appointment (See detail within the referral type(s) below for information on what is needed to complete coordination Note - the Transition Specialists do not coordinate all transition types - please direct all question regarding hospital transition to the Pill Maker) Readmission risk level (if calculated) is: 3-Medium High Primary Care Provider: PCP: KELLEN CHU MD Primary Medical Coverage: [employer] Secondary Medical Coverage: N/A Hospital Follow-Up appointment(s) scheduling status: Appointment to be made closer to discharge * Interdisciplinary - Kaycee Galarza RN - 07/29/2024 10:37 AM CDT I agree with Savanna Andres [facility] Student RN charted assessments. * Interdisciplinary - Cliff Andres, Student - 07/29/2024 9:35 AM CDT A/O respirations unlabored, no signs of distress, IVF infusing as ordered, patient sitting in bed on phone with Mother. Call light within reach. See flow sheet for complete assessment * Interdisciplinary - Kaycee Galarza RN - 07/29/2024 7:00 AM CDT .KAYCEE GALARZA RN Received report from Claire. Alejo botello. Dressing is dry and intact, noted to have been changed on 07/25/2024, green caps in place on all ports. CHG bath completed on 07/25/2024. * Plan of Care - Nidia Sow RN - 07/29/2024 3:13 AM CDT Problem: Adult Inpatient Plan of Care Goal: Plan of Care Review Outcome: Ongoing (see interventions/notes) Flowsheets Taken 07/29/2024 0312 by NIDIA Progress: no change Today's Goal: Patient will not have any diarrhea during shift. Outcome Evaluation: Patient did have diarrhea during shift even though she was given lomotil. Taken 07/28/2024 1600 by KAYCEE Plan of Care Reviewed With: patient Taken 07/27/2024 1602 by KAYCEE Does the patient need assistance with discharge and/or transitioning to the next level of care?: Yes, case management already following Goal: Optimal Comfort and Wellbeing Outcome: Ongoing (see interventions/notes) Intervention: Monitor Pain and Promote Comfort Flowsheets (Taken 07/28/2024 1600 by KAYCEE) Pain Management Interventions: care clustered diversional activity provided pain management plan reviewed with patient/caregiver pillow support provided position adjusted Intervention: Provide Person-Centered Care Flowsheets (Taken 07/28/2024 194) Trust Relationship/Rapport: care explained choices provided emotional support provided empathic listening provided thoughts/feelings acknowledged Goal: Readiness for Transition of Care Outcome: Ongoing (see interventions/notes) Intervention: Mutually Develop Transition Plan Flowsheets Taken 07/27/2024 1600 by KAYCEE Patient/Family Anticipates Transition to: home Taken 07/25/2024 1657 by SHERLEY Current Outpatient/Agency/Support Group: infusion therapy, outpatient Patient/Family Anticipated Services at Transition: outpatient care Problem: Electrolyte Imbalance Goal: Electrolyte Balance Outcome: Ongoing (see interventions/notes) Intervention: Monitor and Manage Electrolyte Imbalance Flowsheets (Taken 07/28/2024 1600 by KAYCEE) Fluid/Electrolyte Management: electrolyte supplement adjusted Problem: Acute Kidney Injury/Impairment Goal: Fluid and Electrolyte Balance Outcome: Ongoing (see interventions/notes) Intervention: Monitor and Manage Fluid and Electrolyte Balance Flowsheets (Taken 07/28/2024 1600 by KAYCEE) Fluid/Electrolyte Management: electrolyte supplement adjusted Goal: Improved Oral Intake Outcome: Ongoing (see interventions/notes) Intervention: Promote and Optimize Oral Intake Flowsheets (Taken 07/29/2024 0312) Oral Nutrition Promotion: physical activity promoted Nutrition Interventions: food preferences provided Goal: Effective Renal Function Outcome: Ongoing (see interventions/notes) Intervention: Monitor and Support Renal Function Flowsheets Taken 07/29/2024 0312 Stabilization Measures: fluid resuscitation initiated Taken 07/28/20241944 Medication Review/Management: medications reviewed * Interdisciplinary - Christy Merino - 07/28/2024 6:11 PM CDT Floor informed of patient's HR being above 150. Patient is currently in the 120's sinus tach * Plan of Care - Kaycee Galarza RN - 07/28/2024 4:05 PM CDT Problem: Adult Inpatient Plan of Care Goal: Plan of Care Review Outcome: Ongoing (see interventions/notes) Flowsheets Taken 07/28/2024 1604 Outcome Evaluation: Na+ 132 and K 3.3 IVF continue as ordered. D5 1/2 40KCL 100MEQ NA bicarb @ 150ml/hr. Taken 07/28/2024 1600 Plan of Care Reviewed With: patient Today's Goal: K+ and Na+ WNL Taken 07/27/2024 1602 Progress: progress toward functional goals as expected Does the patient need assistance with discharge and/or transitioning to the next level of care?: Yes, case management already following Goal: Optimal Comfort and Wellbeing Outcome: Ongoing (see interventions/notes) Intervention: Monitor Pain and Promote Comfort Flowsheets (Taken 07/28/2024 1600) Pain Management Interventions: care clustered diversional activity provided pain management plan reviewed with patient/caregiver pillow support provided position adjusted Intervention: Provide Person-Centered Care Flowsheets (Taken 07/28/2024 0859 by CLIFF) Trust Relationship/Rapport: care explained thoughts/feelings acknowledged therapeutic presence provided Goal: Readiness for Transition of Care Outcome: Ongoing (see interventions/notes) Intervention: Mutually Develop Transition Plan Flowsheets Taken 07/27/2024 1600 by KAYCEE Patient/Family Anticipates Transition to: home Taken 07/25/2024 1657 by SHERLEY Current Outpatient/Agency/Support Group: infusion therapy, outpatient Problem: Electrolyte Imbalance Goal: Electrolyte Balance Outcome: Ongoing (see interventions/notes) Intervention: Monitor and Manage Electrolyte Imbalance Flowsheets (Taken 07/28/2024 1600) Fluid/Electrolyte Management: electrolyte supplement adjusted * Georgie - Kaycee Galarza RN - 07/28/2024 10:00 AM CDT A/O. Resp unlabored. IVF infusing as ordered. See flow sheet for complete assessment. I agree with Cliff BAILON student RN charted assessments. Pt up at harish. No S/S of acute distress noted. Rounding continues. Pt is able to call for assist and call for meals. * Interdisciplinary - Cliff Andres, Student - 07/28/2024 9:13 AM CDT A/O, respirations unlabored. IVF infusing. Up ad harish, no signs of distress noted. See flow sheet for complete assessment. Rounding continues * Interdisciplinary - Sharri Marrero RN - 07/27/2024 8:00 PM CDT .SHARRI MARRERO, KRISTAL Received report from Kaycee. [place] assessed. Dressing is dry and intact, noted to have been changed on 07/22/24, green caps in place on all ports. CHG bath completed on 07/27/24. * Interdisciplinary - Rama Márquez - 07/27/2024 4:37 PM CDT Case Management Patient / Patient Sdv Pilot/Navigator/Dds Operator Contact Note Erwin Perez 's readmission risk level (if calculated) is: 2-Medium Low Patient Class: Inpatient Consecutive Inpatient Midnights 1 Actual day(s) of hospital stay (compare to working DRG):2 New Consult for Case Management? No Summary: Decision Maker: Patient is assumed to be the medical decision maker Grit Removal Operator/Active Directory Architect Name: Lyndsay Hilton Met with Erwin Perez and introduced self and role and discussed plan of care. Plan remains home no needs Plan of Care:(Problem/ situation/ barrier + goals/ milestones + interventions + evaluation of progress = Plan of Care) Erwin Perez 's primary medical problem this hospitalization is ALEXX (acute kidney injury) (HCC). Hospital Plan: Nephrology consulted, Lesia Anticipated Discharge Plan: Home Family/ Caregiver's readiness, willingness and ability to support patient with anticipated community discharge plan: Did not speak with family/caregiver during this contact. IM Letter Documentation, if applicable N/A - Payor is not Medicare No new referrals or updates for post-acute hospital services. * Plan of Care - Kaycee Galarza RN - 07/27/2024 4:05 PM CDT Problem: Adult Inpatient Plan of Care Goal: Plan of Care Review Outcome: Ongoing (see interventions/notes) Flowsheets Taken 07/27/2024 1602 Progress: progress toward functional goals as expected Outcome Evaluation: NA+ 131 and K+ 4.1 Pt receiving D5 1/2 NS w/ 40MeQ KCL and 100 MEQ Na bicarb @ 150ml/hr. Does the patient need assistance with discharge and/or transitioning to the next level of care?: Yes, case management already following Taken 07/27/2024 1600 Plan of Care Reviewed With: patient Today's Goal: Na+ and K+ WNL. Goal: Optimal Comfort and Wellbeing Outcome: Ongoing (see interventions/notes) Intervention: Monitor Pain and Promote Comfort Flowsheets (Taken 07/27/2024 1600) Pain Management Interventions: care clustered pain management plan reviewed with patient/caregiver pillow support provided position adjusted diversional activity provided Intervention: Provide Person-Centered Care Flowsheets (Taken 07/27/2024 0900 by AD) Trust Relationship/Rapport: emotional support provided empathic listening provided questions encouraged safe/supportive environment facilitated therapeutic presence provided thoughts/feelings acknowledged Goal: Readiness for Transition of Care Outcome: Ongoing (see interventions/notes) Intervention: Mutually Develop Transition Plan Flowsheets (Taken 07/27/2024 1600) Patient/Family Anticipates Transition to: home Problem: Electrolyte Imbalance Goal: Electrolyte Balance Outcome: Ongoing (see interventions/notes) Intervention: Monitor and Manage Electrolyte Imbalance Flowsheets (Taken 07/27/2024 1600) Fluid/Electrolyte Management: electrolyte supplement adjusted * Interdisciplinary - Kaycee Galarza RN - 07/27/2024 3:37 PM CDT A/O. Resp unlabored. RA. IVF infusing as ordered without diff. See flow sheet for complete assessment. Up at harish. No S/S of distress noted. I agree with ADAMARIS student RN charted assessment. Pt is ableto call for assist and call for meals. Rounding continues. * Plan of Care - Sharri Marrero RN - 07/27/2024 5:26 AM CDT Problem: Adult Inpatient Plan of Care Goal: Plan of Care Review 07/27/2024522 by SHARRI Flowsheets (Taken 07/27/2024522) Plan of Care Reviewed With: patient Progress: no change Today's Goal: K+ and Na+ within normal limits Outcome Evaluation: K+ 3.9 and Na+ still down and 1 point lower at 127...will continue to monitor. Does the patient need assistance with discharge and/or transitioning to the next level of care?: Yes, case management already following 07/27/2024521 by SHARRI Outcome: Ongoing (see interventions/notes) Goal: Optimal Comfort and Wellbeing Outcome: Ongoing (see interventions/notes) Intervention: Monitor Pain and Promote Comfort Flowsheets (Taken 07/27/2024522) Pain Management Interventions: care clustered position adjusted quiet environment facilitated Intervention: Provide Person-Centered Care Flowsheets (Taken 07/27/2024 010) Trust Relationship/Rapport: care explained therapeutic presence provided thoughts/feelings acknowledged safe/supportive environment facilitated choices provided questions encouraged Goal: Readiness for Transition of Care Outcome: Ongoing (see interventions/notes) Problem: Electrolyte Imbalance Goal: Electrolyte Balance Outcome: Ongoing (see interventions/notes) * Interdisciplinary - Sherley Dyer, KRISTAL - 07/26/2024 5:56 PM CDT Patient has rested per bed this shift. Patient started on Full liquids this afternoon, tolerated well. Continue to given Lomotil and gave x2 today. IVF's changed this shift, see MAR. Zofran given K+ 4.0 this afternoon. No complaints of pain or discomfort. No acute distress noted. All fall and safety precautions remain in place. Will continue to assess and report off to oncoming RN. * Plan of Care - Rama Mayo - 07/26/2024 3:35 PM CDT Case Management Comprehensive Assessment Erwin Perez 's readmission risk level (if calculated) is: 1-Low Patient Class: Inpatient Consecutive Inpatient Midnights 0 Actual day(s) of hospital stay (compare to working DRG): 1 Reason for Pill MakerCommunity Service Aide: Re-hospitalization Erwin Perez is in the hospital due to: hypokalemia, ALEXX Prior to Admission (Support, Living Environment,ADLs IADLs, Transportation, Employment, Access to Care) CM spoke with patient by phone due to covering virtually. The patient lives in a two story home with her parents. She stated that they stay on the main level of the home. There is one step to enter the home and it is not an issue. She stated that she has been independent with ADL's and IADL's. Her mom is able to assist if needed. She does not use respiratory devices at home. She also does not usedurable medical equipment at home. She uses [facility] in [facility] to obtain her medications. She has not faced any financial barriers to obtaining her medications. She stated that she remembersto take her medications. She is able to transport herself or her family does if needed. She is established with Kellen Chu as PCP. She has [facility]. She has not completed a HCPOA or POLST at this time. She does not feel the need to yet. Erwin Perez is a 30 day re-hospitalization Index hospitalization dates: 07/23/24-08/03/24 Index hospitalization principle problem: dehydration Index Hospitalization Discharge disposition and services (ie., home health, SNF, equipment - include the names of the agency and services / equipment provided by agency ): N/A Did patient declines services on index hospitalization?: No Erwin Perez /family's account of events from index hospital discharge leading to current hospitalization: She returned to the hospital due to continuing to not being able to keep fluids or food down. She is also very weak. She stated that it is believed that this is due to her cancer treatment.She does not feel the need for services at home. 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 SUMMARY (summary of interaction with patient/decision maker, family and interdisciplinary team) Decision Maker: Patient is assumed to be the medical decision maker Grit Removal Operator/Active Directory Architect Name: Lyndsay Hilton By phone, spoke with Erwin Perez and introduced self and role and discussed plan of care. CM spoke with patient regarding the preference for discharge. The patient does not feel the need for services at this time. CM will continue to follow the patient while she is in the hospital. IM Letter Documentation, if applicable N/A - Payor is not Medicare No new referrals or updates for post-acute hospital services. * Plan of Care - Sherley Dyer RN - 07/26/2024 2:36 PM CDT Problem: Adult Inpatient Plan of Care Goal: Plan of Care Review Outcome: Ongoing (see interventions/notes) Flowsheets (Taken 07/26/2024 4613) Plan of Care Reviewed With: patient Progress: improving Today's Goal: Potassium level will be withing normal limits (3.5-5.0). Outcome Evaluation: Patient's potassium level is 4.0 today. Does the patient need assistance with discharge and/or transitioning to the next level of care?: Yes, case management already following Goal: Optimal Comfort and Wellbeing Outcome: Ongoing (see interventions/notes) Intervention: Monitor Pain and Promote Comfort Flowsheets (Taken 07/26/2024 0800) Pain Management Interventions: care clustered position adjusted quiet environment facilitated relaxation techniques promoted Intervention: Provide Person-Centered Care Flowsheets (Taken 07/26/2024 0800) Trust Relationship/Rapport: care explained choices provided emotional support provided empathic listening provided questions answered reassurance provided respect patient/family decisions provided safe/supportive environment facilitated nonverbal communication acknowledged thoughts/feelings acknowledged Goal: Readiness for Transition of Care Outcome: Ongoing (see interventions/notes) Intervention: Mutually Develop Transition Plan Flowsheets (Taken 07/25/2024 1657) Current Outpatient/Agency/Support Group: infusion therapy, outpatient Problem: Electrolyte Imbalance Goal: Electrolyte Balance Outcome: Ongoing (see interventions/notes) * Interdisciplinary - Sherlye Dyer RN - 07/26/2024 10:10 AM CDT Patient sitting up in bed. Complains of nausea and diarrhea, medicated as ordered, see MAR. Took all morning medications and tolerated well. Attempted to draw BMP, slow return of blood, got enough for waste, but wouldn't draw any more blood. Changed draw to lab collect. K+ is now 3.7. IVF's continue infusing without difficulty. No acute distress noted. All fall and safety precautions in place. Will continue to assess. * Plan of Care - Juancarlos Pina RN - 07/26/2024 3:19 AM CDT Problem: Adult Inpatient Plan of Care Goal: Plan of Care Review Outcome: Ongoing (see interventions/notes) Flowsheets Taken 07/26/2024 0318 by JUANCARLOS Plan of Care Reviewed With: patient Progress: progress towards functional goals is fair Outcome Evaluation: Pt K level increasing. IVF with K running, IVPB of KCL administered per MAR Taken 07/25/20241654 by SHERLEY Today's Goal: Potassium level will be within normal limits (3.5-5.0 Does the patient need assistance with discharge and/or transitioning to the next level of care?: Yes, will consult case management Goal: Optimal Comfort and Wellbeing Outcome: Ongoing (see interventions/notes) Intervention: Monitor Pain and Promote Comfort Flowsheets (Taken 07/25/20241944) Pain Management Interventions: care clustered pain management plan reviewed with patient/caregiver position adjusted pillow support provided quiet environment facilitated Intervention: Provide Person-Centered Care Flowsheets (Taken 07/25/20241944) Trust Relationship/Rapport: care explained reassurance provided safe/supportive environment facilitated thoughts/feelings acknowledged Goal: Readiness for Transition of Care Outcome: Ongoing (see interventions/notes) Problem: Electrolyte Imbalance Goal: Electrolyte Balance Outcome: Ongoing (see interventions/notes) Intervention: Monitor and Manage Electrolyte Imbalance Flowsheets (Taken 07/26/2024317) Fluid/Electrolyte Management: electrolyte supplement adjusted fluids provided * Interdisciplinary - Sherley Dyer RN - 07/25/2024 5:10 PM CDT Patient has been resting per bed. Awake and alert. Had clear liquid diet for late lunch, tolerated well but did have some abdominal discomfort, but did require any medication. Boyfriend currently at bedside and attentive to patient. Up to bathroom and back. All fall and safety precautions remain inplace. Will continue to assess and report off to oncoming RN. * Plan of Care - Sherley Dyer RN - 07/25/2024 5:01 PM CDT Problem: Adult Inpatient Plan of Care Goal: Plan of Care Review Outcome: Ongoing (see interventions/notes) Flowsheets (Taken 07/25/20241654) Plan of Care Reviewed With: patient Progress: no change Today's Goal: Potassium level will be within normal limits (3.5-5.0 Outcome Evaluation: Patient's potassium level is 2.5. Patient is receiving IV potassium replacementand with follow with IV fluids containing potassium, see MAR> Does the patient need assistance with discharge and/or transitioning to the next level of care?: Yes, will consult case management Goal: Optimal Comfort and Wellbeing Outcome: Ongoing (see interventions/notes) Intervention: Monitor Pain and Promote Comfort Flowsheets (Taken 07/25/2024 1657) Pain Management Interventions: care clustered pain management plan reviewed with patient/caregiver position adjusted quiet environment facilitated relaxation techniques promoted Intervention: Provide Person-Centered Care Flowsheets (Taken 07/25/2024 1500) Trust Relationship/Rapport: care explained choices provided emotional support provided empathic listening provided questions answered questions encouraged reassurance provided respect patient/family decisions provided safe/supportive environment facilitated nonverbal communication acknowledged thoughts/feelings acknowledged Goal: Readiness for Transition of Care Outcome: Ongoing (see interventions/notes) Intervention: Mutually Develop Transition Plan Flowsheets (Taken 07/25/2024 1656) Current Outpatient/Agency/Support Group: infusion therapy, outpatient Patient/Family Anticipated Services at Transition: outpatient care Patient/Family Anticipates Transition to: home Problem: Electrolyte Imbalance Goal: Electrolyte Balance Outcome: Ongoing (see interventions/notes) Intervention: Monitor and Manage Electrolyte Imbalance Flowsheets (Taken 07/25/2024 1651) Fluid/Electrolyte Management: electrolyte supplement initiated intravenous fluid replacement initiated * Interdisciplinary - Kiana Ruffin RN - 07/25/2024 3:08 PM CDT Initial Skin Assessment Patient assessed with 2nd RN Omar Wounds noted: na PRESSURE INJURY AND MOISTURE MANAGEMENT RECOMMENDATIONS: Moisture [...] No Specialty Bed Indicated Wound care: N/A KIANA RUFFIN RN * Interdisciplinary - Sherley Dyer RN - 07/25/2024 2:37 PM CDT Patient arrived to room 241 via stretcher from the ED. Patient walked to floor bed. Heart rate wentup into 150's Patient's potassium level 2.5, currently receiving IV potassium replacement. Admission and assessment to follow. All fall and safety precautions in place. Will continue to assess. documented in this encounter Plan of Treatment Upcoming Encounters Date Type Department Care Team (Late st Contact Info) Description 11/15/2024 1:00 PM COMMUNICATIONS PROGRAMMER [facility] [address] [place] [address] Markus Finley MD [address] [place] [address] 11/15/2024 2:00 PM COMMUNICATIONS PROGRAMMER [facility]ment [facility] [address] [place] [address] Markus Finley MD [address] [place] [address] Discharge Disposition: Discharged to home or Selfcare Scheduled Orders Name Type Priority Associated Diagnoses Orde r Schedule Pulse Oximetry, Spot PFT Routine WITH VITALS until discontinued starting 07/25/2024 Complete Blood Count (CBC) WITH Diff Lab Routine ALEXX (acute kidney injury) (HCC) 2 Occurrences starting 07/30/2024 until 08/29/2024 Renal Function Panel (RFP) Lab Routine ALEXX (acute kidney injury) (HCC) 2 Occurrences starting 07/30/2024 until 08/29/2024 documented as of this encounter Procedures Procedure Name Priority Date/Time Associated Diagnosis Comments CBC WITH AUTO DIFFERENTIAL Routine 07/30/2024 4:23 AM CDT COMPLETE BLOOD COUNT (CBC) WITH DIFF Routine 07/30/2024 4:23 AM CDT BASIC METABOLIC PANEL W/ CALCIUM TOTAL Routine 07/30/2024 4:23 AM CDT RHYTHM STRIP 07/30/2024 12:00 AM CDT RHYTHM STRIP 07/30/2024 12:00 AM CDT MINT GREEN LI HEPARIN/SST TOP TUBE Routine 07/29/2024 4:30 AM CDT CBC WITH AUTO DIFFERENTIAL Routine 07/29/2024 4:30 AM CDT HEPATITIS PANEL ACUTE (AHP) Routine 07/29/2024 4:30 AM CDT COMPLETE BLOOD COUNT (CBC) WITH DIFF Routine 07/29/2024 4:30 AM CDT C4 COMPLEMENT Routine 07/29/2024 4:30 AM CDT C3 COMPLEMENT GLOBULIN B-1C Routine 07/29/2024 4:30 AM CDT BASIC METABOLIC PANEL W/ CALCIUM TOTAL Routine 07/29/2024 4:30 AM CDT RHYTHM STRIP 07/29/2024 12:00 AM CDT RHYTHM STRIP 07/29/2024 12:00 AM CDT RHYTHM STRIP 07/29/2024 12:00 AM CDT GLOMERULAR BASEMENT MEMBRANE ANTIBODY, IGG Routine 07/28/2024 10:15 AM CDT ANCA MPO PR3 Routine 07/28/2024 10:15 AM CDT ANCA IFA SCREEN Routine 07/28/2024 10:15 AM CDT ANCA PANEL SCREEN W/ MPO & PR3, TITER IF POS Routine 07/28/2024 10:15 AM CDT UR PROTEIN/CREATININE RATIO Routine 07/28/2024 10:15 AM CDT HEPATITIS C ANTIBODY Routine 07/28/2024 10:15 AM CDT BASIC METABOLIC PANEL W/ CALCIUM TOTAL Timed 07/28/2024 10:15 AM CDT ANTINUCLEAR ANTIBODY (BARRETT), TITER IF POS Routine 07/28/2024 10:15 AM CDT CBC WITH AUTO [...] AUTO DIFFERENTIAL Routine 07/27/2024 4:36 AM CDT COMPLETE BLOOD COUNT (CBC) WITH DIFF Routine 07/27/2024 4:36 AM CDT BASIC METABOLIC PANEL W/ CALCIUM TOTAL Timed 07/27/2024 4:36 AM CDT RHYTHM STRIP 07/27/2024 12:00 AM CDT RHYTHM STRIP 07/27/2024 12:00 AM CDT RHYTHM STRIP 07/27/2024 12:00 AM CDT BASIC METABOLIC PANEL W/ CALCIUM TOTAL Timed 07/26/2024 6:58 PM CDT ADULT TRANS THORACIC ECHO 2D COMPLETE Routine 07/26/2024 4:02 PM CDT BASIC METABOLIC PANEL W/ CALCIUM TOTAL Timed 07/26/2024 12:04 PM CDT BASIC METABOLIC PANEL W/ CALCIUM TOTAL Timed 07/26/2024 8:58 AM CDT CBC WITH AUTO DIFFERENTIAL Routine 07/26/2024 4:45 AM CDT COMPLETE BLOOD COUNT (CBC) WITH DIFF Routine 07/26/2024 4:45 AM CDT MAGNESIUM (MG) STAT 07/26/2024 12:21 AM CDT BASIC METABOLIC PANEL W/ CALCIUM TOTAL Timed 07/26/2024 12:21 AM CDT RHYTHM STRIP 07/26/2024 12:00 AM CDT RHYTHM STRIP 07/26/2024 12:00 AM CDT RHYTHM STRIP 07/26/2024 12:00 AM CDT RHYTHM STRIP 07/26/2024 12:00 AM CDT BASIC METABOLIC PANEL W/ CALCIUM TOTAL Timed 07/25/2024 9:[address] ABDOMEN PELVIS W/O CONTRAST Stat with Interpretation 07/25/2024 12:30 PM CDT CRITICAL CARE Routine 07/25/2024 12:14 PM CDT EKG 12 LEAD STAT 07/25/2024 11:48 AM CDT RHYTHM STRIP 07/25/2024 12:00 AM CDT RHYTHM STRIP 07/25/2024 12:00 AM CDT RHYTHM STRIP 07/25/2024 12:00 AM CDT EKG SCAN 07/25/2024 12:00 AM CDT HEMOGLOBIN A1C W/ ESTIMATED GLUCOSE STAT 07/24/2024 5:48 AM CDT documented in this encounter Results * (ABNORMAL) CBC with Auto Differential (07/30/2024 4:23 AM CDT) Only the most recent of5 resultswithin the time period is included. Pathologist [facility] WBC 6.42 4.00 - 12.00 10(3)/mcL 07/30/2024 6:02 AM CDT [facility] RBC 3.97 3.80 - 5.30 10(6)/mcL 07/30/2024 6:02 AM CDT [facility] HEMOGLOBIN (HGB) 11.7(L) 12.0 - 15.8 g/dL 07/30/2024 6:02 AM CDT [facility] HEMATOCRIT (HCT) 34.8(L) 36.0 - 47.0 % 07/30/2024 6:02 AM CDT [facility] MCV 87.7 82.0 - 96.0 fL 07/30/2024 6:02 AM CDT [facility] MCH 29.5 26.0 - 34.0 pg 07/30/2024 6:02 AM T [facility] MCHC 33.6 31.0 - 36.0 g/dL 07/30/2024 6:02 AM [facility] PLATELET COUNT 269 140 - 440 10(3)/[facility] 07/30/2024 6:02 AM T [facility] RDW 13.9 11.8 - 15.5 % 07/30/2024 6:02 AM [facility] MPV 11.0 9.7 - 12.4 fL 07/30/2024 6:02 AM [facility] NEUTROPHILS 85.4(H) 47.0 - 73.0 % 07/30/2024 6:02 AM [facility] LYMPHOCYTES 10.6(L) 18.0 - 42.0 % 07/30/2024 6:02 AM CDT [facility] MONOCYTES 3.7(L) 4.0 - 12.0 % 07/30[facility]24 6:[facility] EOSIN[facility] 0.0 0.0 - 5.0 % 07/30/2024 6:02 AM [facility] BASOPHILS 0.3 0.0 - 1.0 % 07/30/2024 6:02 AM CDT [facility] ABSOLUTE NEUTROPHILS 5.48 1.60 - 7.70 10(3)/mcL 07/30/2024 6:02 AM CDT [facility] ABSOLUTE LYMPHOCYTES 0.68(L) 1.30 - 3.20 10(3)/[facility] 07/30/2024 6:02 AM CDT [facility] ABSOLUTE MONOCYTES 0.24 0.20 - 1.00 10(3)/[facility] 07/30/2024 6:02 AM CDT [facility] ABSOLUTE EOSINOPHIL 0.00 0.00 - 0.40 10(3)/[facility] 07/30/2024 6:02 AM CDT [facility] ABSOLUTE BASOPHILS 0.02 0.00 - 0.10 10(3)/[facility] 07/30/2024 6:02 AM CDT [facility] NRBC PER 100 WBC 0 07/30/20 6:02 AM CDT [facility] Blood Venipuncture / Unknown 07/30/2024 4:23 AM CDT 07/30/2024 5:22 AM CDT us Debo Keenan CHANNEL MARKETING SPECIALIST, HOUSE REPAIRER HEMATOLOGY ORDERABLES Final Result [facility] [address] [place] [address] * (ABNORMAL) Basic Metabolic Panel w/ Calcium Total (07/30/2024 4:23 AM CDT) Only the most recent of10 resultswithin the time period is included. SODIUM 133(L) 136 - 145 mmol/L 07/30/2024 5:53 AM CDT [facility] POTASSIUM 3.5 3.5 - 5.1 mmol/L 07/30/2024 5:53 AM CDT [facility] CHLORIDE 96(L) 98 - 107 mmol/L 07/30/2024 5:53 AM CDT [facility] CO2, VENOUS 27 22 - 30 mmol/L 07/30/2024 5:53 AM CDT [facility] ANION GAP 13.5 <18.0 mmol/L 07/30/2024 5:53 AM CDT [facility] GLUCOSE 132(H) 70 - 99 mg/dL 07/30/2024 5:53 AM CDT [facility] BUN 15 5 - 18 mg/dL 07/30/2024 5:53 AM CDT [facility] CREATININE, BLOOD 1.24(H) 0.60 - 1.00 mg/dL 07/30/2024 5:53 AM CDT [facility] BUN/CREATININE RATIO 12 12 - 20 ratio 07/30/2024 5:53 AM CDT [facility] CALCIUM 9.2 8.7 - 10.5 mg/dL 07/30/2024 5:53 AM CDT [facility] GFR, ESTIMATED >60 >=60 07/30/2024 5:53 AM CDT [facility] Comment: Creatinine Clearance is the preferred criteria for selecting drug dose adjustments in renally impaired patients. ??The GFR is provided as additional pertinent clinical information. GFR is reported in mL/min/1.73 sq m. Calculation based on the Chronic Kidney Disease Epidemiology Collaboration (CKD- EPI) equation refit without adjustment for race. GFR, EST. >60 >=60 024 5:53 AM CDT [facility] GFR, EST. NONAFRICAN 53(L) >=60 07/30/2024 5:53 AM CDT [facility] Blood Venipuncture / Unknown 07/30/2024 4:23 AM CDT 07/30/2024 5:22 AM CDT us Debo Keenan CHANNEL MARKETING SPECIALIST, HOUSE REPAIRER CHEMISTRY ORDERABLES Final Result [facility] [address] [place] [address] * RHYTHM STRIP (07/30/2024 12:00 AM CDT) Only the most recent of18 resultswithin the time period is included. 07/30/2024 us Provider Scan IMG ECG ORDERABLES Final Result RESULTING AGENCY * ANA BASURTO RACHID HEPARIN/SST TOP TUBE (07/29/2024 4:30 AM CDT) Blood No Phlebotomy Charged / Unknown 07/29/2024 4:30 AM CDT 07/29/2024 2:56 PM CDT Brayan Kang MD HEMATOLOGY ORDERABLES Final R esult [facility] [address] [place] [address], * Hepatitis Panel Acute (AHP) (07/29/2024 4:30 AM CDT) HEPATITIS A IGM ANTIBODY NON DETECTED NON DETECTED 07/29/2024 3:37 PM CDT [facility] Comment: IGM Antibodies to HAV not detected. ??Does not exclude early acute or recovered HAV infection. HEP B CORE AB (IGM) NON DETECTED NON DETECTED 07/29/2024 3:37 PM CDT [facility] Comment:IGM anti-HBC not det ected. Does not exclude the possibility of exposure to or infection with HBV. HEPATITIS B SURFACE ANTIGEN NON DETECTED NON DETECTED 07/29/2024 3:37 PM CDT [facility] Comment:A nonreactive test r esult does [...] 0.17 <1 S/CO 07/29/2024 3:37 PM CDT [facility] Comment: Signal/Cutoff ratio ??< 0.79 is Nondetected Signal/Cutoff ratio 0.80-0.99 is Grayzone Signal/Cutoff ratio > 0.99 is Detected Supplemental assays are recommended if signal/cutoff ratio is >/=1.00. ??Signal/cutoff ratio result >/= 5.00 is 97% predictive of positivity for recombinant immunoblot assay (RIBA) and will be reported to the [place] [facility] as required. Blood Venipuncture / Unknown 07/29/2024 4:30 AM CDT 07/29/2024 5:15 AM CDT Urbano Quiñonez MD HEMATOLOGY ORDERABLES Final Result Performing Organization Address City/[facility]/ZIP Co de Phone Number [facility] [address] [place] [address], [place] * C3 Complement Globulin B-1C (07/29/2024 4:30 AM CDT) C3 COMPLEMENT 133 83 - 193 mg/dL 07/29/2024 3:18 PM CDT [facility] Blood Venipuncture / Unknown 07/29/2024 4:30 AM CDT 07/29/2024 5:15 AM CDT Urbano Quiñonez MD CHEMISTRY ORDERABLES Final Result Performing Organization Address [facility]/ZIP Co de Phone Number [facility] [address] [place] [address], [place] * C4 Complement (07/29/2024 4:30 AM CDT) C4 COMPLEMENT 23 15 - 57 mg/dL 07/29/2024 3:18 PM CDT [facility] Blood Venipuncture / Unknown 07/29/2024 4:30 AM CDT 07/29/2024 5:15 AM CDT Urbano Quiñonez MD CHEMISTRY ORDERABLES Final Result Performing Organization Address City/[facility]/ZIP Co de Phone Number [facility] [address] [place] [address], [place] * ANCA MPO PR3 (07/28/2024 10:15 AM CDT) PROTEINASE 3 AB <0.2 <1.0 AI 12:48 PM CDT [facility] MYELOPEROXIDASE AB <0.2 <1.0 AI 2023 12:48 PM CDT [facility] Blood Venipuncture / Unknown 07/28/2024 10:15 AM CDT 07/28/2024 12:09 PM CDT us Urbano Quiñonez MD IMMUNOLOGY ORDERABLES Final Result Performing Organization Address City/State/[facility] Co de Phone Number [facility] [address] [place] [address], * ANCA IFA SCREEN (07/28/2024 10:15 AM CDT) ANCA IFA SCREEN <1:20 <1:20 titer 07/30/20 24 12:14 PM CDT [facility] Comment: Expected result is < 1:10. ANCA TITER Not Applicable <1:20, Not Applicable titer 07/30/2024 12:14 PM CDT [facility] ANCA PATTERN Not Applicable 07/30/2024 12:14 PM CDT [facility] Comment: Antineutrophil cytoplasmic antibodies (ANCA) are [...] IMMUNOLOGY ORDERABLES Final Result Performing Organization Address City/[facility]/ZIP Co de Phone Number [facility] [address] [place] [address], [place] * GLOMERULAR BASEMENT MEMBRANE AB, IGG (07/28/2024 10:15 AM CDT) GLOMERULAR BASEMENT MEMBRANE (GBM) <0.2 <1.0 AI 08/07/2024 12:48 PM CDT [facility] Blood Venipuncture / Unknown 07/28/2024 10:15 AM CDT 07/28/2024 12:09 PM CDT Narrative [facility] - 08/07/2024 12:48 PM CDT Antibody testing was performed by multiplex flow immunoassay on the [employer] platform. Urbano Quiñonez MD IMMUNOLOGY ORDERABLES Final Result Performing Organization Address City/[facility] Co de Phone Number [facility] [address] [place] [address], [place] * Hepatitis C Antibody (07/28/2024 10:15 AM CDT) hepatitis C antibody 0.18 <1 S/CO 07/28/2024 10:27 PM CDT [facility] Comment: Signal/Cutoff ratio ??< 0.79 is Nondetected Signal/Cutoff ratio 0.80-0.99 is Grayzone Signal/Cutoff ratio > 0.99 is Detected Supplemental assays are recommended if signal/cutoff ratio is >/=1.00. ??Signal/cutoff ratio result >/= 5.00 is 97% predictive of positivity for recombinant immunoblot assay (RIBA) and will be reported to the [place] [facility] as required. Blood Venipuncture / Unknown 07/28/2024 10:15 AM CDT 07/28/2024 12:09 PM CDT Urbano Quiñonez MD CHEMISTRY ORDERABLES Final Result Performing Organization Address [facility] Co de Phone Number [facility] [address] [place] [address], [place] * Antinuclear Antibody (BARRETT), Titer If Pos (07/28/2024 10:15 AM CDT) BARRETT SCREEN Negative Negative titer 07/30/2024 11:28 AM CDT [facility] Comment: Antinuclear autoantibodies not detected by IFA at a 1:80 screening dilution of HEp-2 cells. BARRETT TITER Not Applicable Negative, See comment, Not Applicable titer 07/30/2024 11:28 AM CDT [facility] Comment: Antinuclear autoantibodies not detected by IFA at a 1:80 screening dilution of HEp-2 cells. BARRETT PATTERN NOT APPLICABLE 07/30/2024 11:28 AM CDT [facility] Blood Venipuncture / Unknown 07/28/2024 10:15 AM CDT 07/28/2024 12:09 PM CDT Urbano Quiñonez MD IMMUNOLOGY ORDERABLES Final Result Performing Organization Address [facility] Co de Phone Number [facility] [address] [place] [address], [place] * (ABNORMAL) Ur Protein/Creatinine Ratio (07/28/2024 10:15 AM CDT) UR PROTEIN RAND, QT 170.7 mg/dL 07/28/2024 12:27 PM CDT [facility] Comment:No reference range h as been established. Consider Clinical Correlation. URINE CREATININE 532.6 mg/dL 07/28/2024 12:27 PM CDT [facility] Comment:No reference range h as been established. Consider Clinical Correlation. URINE PROTEIN/CREATIN INE RATIO 0.32(H) <0.25 07/28/2024 12:27 PM CDT [facility] Urine Non-Phlebotomy Collection / Unknown 07/28/2024 10:15 AM CDT 07/28/2024 12:09 PM CDT us Urbano Quiñonez MD URINE ORDERABLES Final Resu lt [facility] [address] [place] [address] * US RENAL COMPLETE (07/27/2024 12:40 PM [...] PM T: ??07/27/2024 12:49 PM Report ID: [id number] Reading Location: ??[id number] Procedure Note Piero Chapman MD - 07/27/2024 [...] Electronically signed by Piero Chapman M.D. KN: KHAIR Report ID: [id number] Reading Location: [id number] IMPRESSION: Normal kidneys. Debris within the bladder. Correlate with urinalysis. us Brayan Kang MD IMG US ORDERABLES Final Resul t * ADULT TRANS THORACIC ECHO 2D COMPLETE (07/26/2024 4:02 PM CDT) AV Peak Grad mmHg 4.93 mmHg RESULTING AGENCY Mean Aortic Valve Gradient (MAVG) 3 mmHg RESULTING AGENCY LV end ramin diam cm 3.09 cm RESULTING AGENCY LV end sys diam cm 2.02 cm RESULTING AGENCY Aortic Root Diam cm 3 cm RESULTING AGENCY LA vol index ml/m2 12 ml/m2 RESULTING AGENCY LVOT Peak Fredi m/sec 0.998 m/sec RESULTING AGENCY AV Peak Fredi m/sec 1.11 m/sec RESULTING AGENCY MVA by PHT cm2 5 cm2 RESUL TING AGENCY E/A Ratio 1.11 RESULTING AGENCY E/E' 8.7 RESULTING AGENCY AV Area (VTI) cm2 2.81 cm2 RESULTING AGENCY SEPTUM DIASTOLIC CM 0.81 cm RESULTING AGENCY PW DIASTOLIC CM 1.17 cm RESU LTING AGENCY LA VOLUME 27.5 ml RESULTING AGENCY Anatomical Region Laterality Modality CARDIO N/A Ultrasound Narrative 07/27/2024 8:18 AM CDT Transthoracic Echocardiography Report (TTE) Patient name ?PAINTER ERWIN Brand ?2000 Patient ID (UPI) ?[id number] ? Indications: Pericardial effusion. Study Date07/26/2024 Technical quality: [...] (PHT): 5 cm^2 Peak E-Wave: 0.65 m/s ?Deceleration Time: 151 msec Peak A-Wave: 0.59 m/s Peak Gradient: 1.72 mmHg P1/2t: 44 msec Tissue Doppler E' Velocity: 0.06 m/s ?E/E':8.7 E/A Ratio: 1.11 ?E/Lat E': 8.7 ?E/Med E':9.6 Aortic Valve Area (continuity): 2.81 cm^2 ? Mean Velocity: 0.83 m/s Area (VTI):2.81 cm^2 ? Mean Gradient: 3 mmHg Peak Velocity: 1.11 m/s ?AV VTI: 16.9 cm Peak Gradient: 4.93 mmHg Tricuspid Valve Peak E-Wave: 0.40 m/s Peak Gradient: 0.65 mmHg Pulmonic Valve Peak Velocity: 0.60 m/s Peak Gradient: 1.48 mmHg LVOT Peak Velocity: 0.99 m/s ? Mean Velocity: 0.78 m/s Peak Gradient: 4 mmHg ? Mean Gradient: 3 mmHg LVOT Diameter: 2 cm ? LVOT VTI: 15.1 cm Stroke Volume: 47 ml ?Stroke Volume Index: 21.08 ml/m^2 Structures Left Ventricle Diastolic Dimension: 3.09 cm ? Systolic Dimension: 2.02 cm Septum Diastolic: 0.81 cm ?Septum Systolic: 1.35 cm PW Diastolic: 1.17 cm ?PW Systolic: 1.73 cm Diastolic Length: 23.7 cm ?Systolic Length: 14.4 cm EF Calculated: 55.09% ?CI: 2.26 l/min*m^2 CO: 5.03 l/min RWT: 0.76 ?LV EDV: 81.5 ml FS: 34.63 % ?LV EDV Index: 37 m^2 LV Length: 7.43 cm ? LV ESV: 36.6 ml LVOT Diameter: 2 cm ?LV ESV Index: 16 m^2 Right Ventricle ? RVOT (PLAX) diameter:2.65 cm Tissue Doppler RV S': 14 Left Atrium LA Systolic Pressure: 12.9 mmHg ? LA Area: 12.5 cm^2 ? LA Volume: 27.5 ml ? LA Index: 12ml/m^2 Right Atrium ?RA Area: 8.18 cm^2 Great Vessels Aorta ?Ascending Aorta: 2.6 cm Aorta Root:3 cm ?Ascending Aorta Index:1.17 cm/m^2 Demographics Age ?24 ?Gender ? Female Race ? Height ? 65.98 in. ?Weight ? 257.5 lbs. ?BMI (BSA) ?41.58 kg/m^2 (2.23 ? m^2) Ammonia Solution Preparer ?Bayron Joseph Room ? 241 Interpreting ? [place] ? Referring Physician ?Wale ?Physician ?Isabel ?Emily Procedure Note Emily Hall MD - 07/27/2024 Transthoracic Echocardiography Report (TTE) Patient name PAINTER ERWIN Brand Cecile 2000 Patient ID (UPI) [id number] Indications: Pericardial effusion. Study Date07/26/2024 Technical quality: [...] lbs. BMI (BSA) 41.58 kg/m^2 (2.23 m^2) Ammonia Solution Preparer Bayron Joseph Room 241 Interpreting [facility] Referring Physician Wale Physician Isabel Diaz us Esteban Mcgovern CHANNEL MARKETING SPECIALIST, HOUSE REPAIRER IMG ECHO ORDERABLES Fin al Result * MAGNESIUM (MG) (07/26/2024 12:21 AM CDT) MAGNESIUM 2.2 1.6 - 2.6 mg/dL 07/26/2024 2:22 AM CDT [facility] Blood Venipuncture / Unknown 07/26/2024 12:21 AM CDT 07/26/2024 12:22 AM CDT us Esteban Mcgovern CHANNEL MARKETING SPECIALIST, HOUSE REPAIRER CHEMISTRY ORDERABLES Fi nal Result [facility] [address] [place] [address] * CT ABDOMEN PELVIS W/O CONTRAST (07/25/2024 12:30 PM CDT) Anatomical Region Laterality Modality Abdomen N/A Computed Tomogra phy 07/25/2024 12:5 5 PM CDT Impressions 07/25/2024 12:57 PM CDT IMPRESSION: Fluid-filled colon, without wall thickening or [...] on the recent CT study from 06/27/2024. ?? Attention on surveillance imaging recommended. ??MRI can be considered for further evaluation as warranted on a clinical basis. Scattered mesenteric lymph nodes, stable to slightly diminished in size compared to the most recent CT examination. ??Continued imaging surveillance recommended. Narrative 07/25/2024 12:57 PM CDT EXAM DESCRIPTION: ?? CT ABDOMEN PELVIS W/O CONTRAST REASON FOR STUDY: ?? Patient reports last immunotherapy was on the . Reports she was here on Tuesday and has had nausea and vomiting since. H/o metastatic melanoma, NAFLD ?? TECHNIQUE: CT scan of the abdomen and pelvis performed without intravenous and ??without ??oral contrast using helical scanning technique. Reconstructed coronal and sagittal MPR images reviewed. All images stored on PACS. Automated exposure control was used as a dose optimization technique for this examination. COMPARISON: ?? 06/27/2024 from [facility]. ??PET-CT 04/03/2024. FINDINGS: The sensitivity for detection of visceral lesions is diminished without the use of intravenous contrast. LOWER CHEST: ?? No consolidation within either lung base. ??No pleural effusion. ??There is a pericardial effusion, slightly increased compared to the prior examination on 06/27/2024. LIVER: ?? The liver is stable in size compared to the prior examination. ??Hypoattenuation adjacent to the falciform ligament is in a location common for focal fatty deposition, though this is not visualized on the recent prior examination. ??Evaluation for mass limited on this noncontrast study. GALLBLADDER: ?? Partially contracted when compared to prior study. ?? No densely calcified stones. BILE DUCTS: ?? Within normal limits. SPLEEN: ?? No focal mass. PANCREAS: ?? No identified cystic or solid masses. ??No significant calcifications. No adjacent inflammation or peripancreatic fluid collections. Pancreatic duct not dilated. ADRENALS: ?? Normal. KIDNEYS/URINARY TRACT: ?? The kidneys are symmetric in size. ??No hydronephrosis or obstructing urolithiasis. ??No hydroureter. ??The urinary bladder is decompressed. ?? GI: ?? The stomach is unremarkable. ??Small bowel loops are within normal limits in caliber. ??There is no obstruction. ??Distal small bowel is fluid-filled. ??The colon is fluid filled throughout its course. ??No evidence of obstruction. ??No significant colonic wall thickening and no pericolonic stranding. ??The appendix is not well delineated on this study. ??No secondary signs of appendicitis. ?? Correlate with surgical history. PERITONEUM: ?? There is no free intraperitoneal air. ??There is no free fluid. ??There are scattered mesenteric lymph nodes, somewhat prominent, stable to slightly diminished in size compared to the prior examination on 06/27/2024. ??These nodes could be reactive or neoplastic. RETROPERITONEUM: ?? There is no retroperitoneal mass or adenopathy. REPRODUCTIVE: ?? The uterus is within normal limits in size. ??The ovaries are symmetric in size. VASCULATURE: ?? The abdominal aorta is normal in caliber. MUSCULOSKELETAL: ?? There is no acute osseous abnormality. OTHER: ?? No other abnormality. THIS IS AN ELECTRONICALLY VERIFIED FINAL REPORT 07/25/2024 12:55 PM - Electronically signed by ??Flora Hernandez M.D. TW: TW D: ??07/25/2024 12:55 PM T: ??07/25/2024 12:55 PM Report ID: [id number] Reading Location: ??[id number] Procedure Note Flora Hernandez MD - 07/25/2024 EXAM DESCRIPTION: CT ABDOMEN PELVIS W/O CONTRAST REASON FOR STUDY: Patient reports last immunotherapy was on the . Reports she was here on Tuesday and has had nausea and vomiting since. H/o metastatic melanoma, NAFLD TECHNIQUE: CT scan of the abdomen and pelvis performed without intravenous and without oral contrast using helical scanning technique. Reconstructed coronal and sagittal MPR images reviewed. All images stored on PACS. Automated exposure control was used as a dose optimization technique for this examination. COMPARISON: 06/27/2024 from [facility]. PET-CT 04/03/2024. FINDINGS: The sensitivity for detection of visceral lesions is diminished without the use of intravenous contrast. LOWER CHEST: No consolidation within either lung base. No pleural effusion. There is a pericardial effusion, slightly increased compared to the prior examination on 06/27/2024. LIVER: The liver is stable in size compared to the prior examination. Hypoattenuation adjacent to the falciform ligament is in a location common for focal fatty deposition, though this is not visualized on the recent prior examination. Evaluation for mass limited on this noncontrast study. GALLBLADDER: Partially contracted when compared to prior study. No densely calcified stones. BILE DUCTS: Within normal limits. SPLEEN: No focal mass. PANCREAS: No identified cystic or solid masses. No significant calcifications. No adjacent inflammation or peripancreatic fluid collections. Pancreatic duct not dilated. ADRENALS: Normal. KIDNEYS/URINARY TRACT: The kidneys are symmetric in size. No hydronephrosis or obstructing urolithiasis. No hydroureter. The urinary bladder is decompressed. GI: The stomach is unremarkable. Small bowel loops are within normal limits in caliber. There is no obstruction. Distal small bowel is fluid-filled. The colon is fluid filled throughout its course. No evidence of obstruction. No significant colonic wall thickening and no pericolonic stranding. The appendix is not well delineated on this study. No secondary signs of appendicitis. Correlate with surgical history. PERITONEUM: There is no free intraperitoneal air. There is no free fluid. There are scattered mesenteric lymph nodes, somewhat prominent, stable to slightly diminished in size compared to the prior examination on 06/27/2024. These nodes could be reactive or neoplastic. RETROPERITONEUM: There is no retroperitoneal mass or adenopathy. REPRODUCTIVE: The uterus is within normal limits in size. The ovaries are symmetric in size. VASCULATURE: The abdominal aorta is normal in caliber. MUSCULOSKELETAL: There is no acute osseous abnormality. OTHER: No other abnormality. THIS IS AN ELECTRONICALLY VERIFIED FINAL REPORT 07/25/2024 12:55 PM - Electronically signed by Flora Hernandez M.D. TW: JENNY Report ID: [id number] Reading Location: [id number] IMPRESSION: Fluid-filled colon, without wall thickening or [...] recent CT examination. Continued imaging surveillance recommended. Gael Morales MD [facility] ORDERABLES Final Re sult * Critical Care (07/25/2024 12:14 PM CDT) Narrative Gael Morales MD - 07/25/2024 12:14 PM CDT Gael Morales MD ? 07/25/2024 ??1:26 PM Critical Care Performed by: Gael Morales MD Authorized by: Gael Morales MD ?? Critical care provider statement: ??Critical care time (minutes): ??35 ??Critical care was necessary to treat or prevent imminent or life-threatening deterioration of the following conditions: ??Renal failure and metabolic crisis ??Critical care was time spent personally by me on the following activities: ??Development of treatment plan with patient or surrogate, discussions with consultants, discussions with primary provider, evaluation of patient's response to treatment, examination of patient, obtaining history from patient or surrogate, ordering and performing treatments and interventions, ordering and review of laboratory studies, ordering and review of radiographic studies, pulse oximetry, re-evaluation of patient's condition and review of old charts ??I assumed direction of critical care for this patient from another provider in my specialty: no ?Care discussed with: admitting provider ?? us Gael Morales MD PROCEDURE/MINOR SURGICAL O RDERABLES Final Result * EKG 12 LEAD (07/25/2024 11:48 AM CDT) Pathologist [facility] Ventricular Rate 125 BPM EXTERNAL EKG Atrial Rate 125 BPM EXTERNAL EKG P-R Interval 142 ms EXTERNAL EKG QRS Duration 86 ms EXTERNAL EKG Q-T Duration 302 ms EXTERNAL EKG QTC CALCULATION 435 ms EXTERNAL EKG P [place] 58 degrees EXTERNAL EKG R [place] 6 degrees EXTERNAL EKG T [place] 131 degrees EXTERNAL EKG 07/25/2024 11:4 8 AM CDT Impressions EXTERNAL EKG - 08/06/2024 1:46 PM CDT Sinus tachycardia Possible Left atrial enlargement Possible Anterior infarct (cited on or before 25-JUL-2024) ST & T wave abnormality, consider lateral ischemia Abnormal ECG When compared with ECG of 23-JUL-2024 08:15, No significant change was found Confirmed by WALE VALENCIA ([id number]) on 07/28/2024 12:15:11 PM Also confirmed by WALE VALENCIA ([id number]), editorial clerk Jocelyne Hinton ([id number]) ??on 08/06/2024 1:46:44 PM Narrative Procedure Note Wale Valencia MD - 08/06/2024 IMPRESSION: Sinus tachycardia Possible Left atrial enlargement Possible Anterior infarct (cited on or before 25-JUL-2024) ST & T wave abnormality, consider lateral ischemia Abnormal ECG When compared with ECG of 23-JUL-2024 08:15, No significant change was found Confirmed by WALE VALENCIA ([id number]) on 07/28/2024 12:15:11 PM Also confirmed by WALE VALENCIA ([id number]), editorial clerk Jocelyne Hinton ([id number])on 08/06/2024 1:46:44 PM Gael Morales MD IMG ECG ORDERABLES Final R esult Performing Organization Address [facility] Co de Phone Number EXTERNAL EKG * EKG SCAN (07/25/2024 12:00 AM CDT) 07/25/2024 us Provider Scan IMG ECG ORDERABLES Final Result Performing Organization Address [facility] Co de Phone Number RESULTING AGENCY * Hemoglobin A1C w/ Estimated Glucose (07/24/2024 5:48 AM CDT) HGB-A1C 5.5 4.0 - 6.0 % 07/26/2024 12:49 AM CDT [facility] Est Average Glucose 111.2 mg/dL 07/26/2024 12:49 AM CDT [facility] Blood Venipuncture / Unknown 07/24/2024 5:48 AM CDT 07/24/2024 7:07 AM CDT Narrative [facility] - 07/26/2024 12:49 AM CDT HEMOGLOBIN A1C: DIABETIC PATIENTS: WELL-CONTROLLED: ?? 6.2 - 7.0 INTERMEDIATE WELL-CONTROLLED: ??7.0 - 9.0 POORLY-CONTROLLED: ??>9.0 Esteban Mcgovern CHANNEL MARKETING SPECIALIST, HOUSE REPAIRER CHEMISTRY ORDERABLES Fi nal Result Performing Organization Address [facility] de Phone Number [facility] [address] [place] [address] documented in this encounter Visit Diagnoses Diagnosis ALEXX (acute kidney injury) (HCC)- Primary Acute kidney failure, unspecified ALEXX (acute kidney injury) (HCC) Acute kidney failure, unspecified Hypokalemia Hypopotassemia Dehydration Pericardial effusion Unspecified disease of pericardium Hypothyroidism Unspecified hypothyroidism documented in this encounter Admitting Diagnoses Diagnosis ALEXX (acute kidney injury) (HCC) Acute kidney failure, unspecified documented in this encounter Administered Medications Inactive Administered Medications - up to 3 most recent administrations Medication Order MAR Action Action Date Dose Rate Site acetaminophen (TYLENOL) suppository 650 mg 650 mg, Rectal, EVERY 4 HOURS PRN, Starting on Tue07/25/24 at 1748, Until Tue07/30/24 at 1739, Mild pain or more severe pain if patient requests, Fever, If patient is taking oral intake without complications and both PO/MO orders are active, administer through the oral route. acetaminophen (TYLENOL) tablet 650 mg 650 mg, Oral, EVERY 4 HOURS PRN, Starting on Tue07/25/24 at 1748, Until Tue07/30/24 at 1739, Mild pain or more severe pain if patient requests, Fever, If patient is taking oral intake without complications and both PO/MO orders are active, administer through the oral route. calcium carbonate (TUMS) chewable tablet 1,000 mg 1,000 mg, Oral, EVERY 8 HOURS PRN, Starting on Tue07/25/24 at 1747, Until Tue07/30/24 at 1739, Heartburn, Indigestion dextrose 5 % and 0.45% sodium chloride 1,000 mL with potassium chloride 40 mEq, sodium bicarbonate 100 mEq infusion at 150 mL/hr, Intravenous, CONTINUOUS, Starting on Tue07/26/24 at 1300, Until Tue07/30/24 at 1739 07/30/2024 4:57 AM CDT 150 mL/hr 07/29/2024 9:51 PM CDT 150 mL/hr 07/29/2024 2:45 PM CDT 150 mL/hr dextrose 5% and 0.9 % sodium chloride with KCl 40 mEq/L infusion at 150 mL/hr, Intravenous, CONTINUOUS, Starting on Tue07/25/24 at 1530, Until Tue07/26/24 at 1118 07/26/2024 8:19 AM CDT 150 mL/hr 07/26/2024 1:10 AM CDT 150 mL/hr 07/25/2024 6:05 PM CDT 150 mL/hr diphenoxylate-atropine (LOMOTIL) 2.5-0.025 MG per tablet 1 Tablet 1 Tablet, Oral, 4 TIMES DAILY PRN, Starting on Tue07/25/24 at 1748, Until Tue07/30/24 at 1739, Diarrhea, Maximum 8 tablets in 24 hours. Given 07/29/2024 8:45 PM CDT 1 Tablet Given 07/29/2024 9:10 AM CDT 1 Tablet Given 07/28/2024 9:28 PM CDT 1 Tablet enoxaparin (LOVENOX) injection 30 mg 30 mg, Subcutaneous, EVERY 24 HOURS SCHEDULED (Daily), First dose (after last modification) on Tue07/25/24 at 1830, Until DiscontinuedIndications:Prophylaxi s of Venous Thromboembolism Given 07/25/2024 6:05 PM CDT 30 mg Left Abdomen enoxaparin (LOVENOX) injection 40 mg 40 mg, Subcutaneous, EVERY 12 HOURS SCHEDULED, First dose on Tue07/27/24 at 0900, Until Discontinued Heparin Na (Pork) Lock Flsh PF SOLN 50 Units 50 Units, Intravenous, PRN, Starting on Tue07/30/24 at 1231, Until Tue07/30/24 at 1739, Line Care Given 07/30/2024 3:10 PM CDT 50 Units levothyroxine (SYNTHROID) tablet 100 mcg 100 mcg, Oral, EVERY MORNING BEFORE BREAKFAST, First dose on Tue07/25/24 at 1830, Until Discontinued Given 07/30/2024 9:00 AM CDT 100 mcg Given 07/29/2024 9:01 AM CDT 100 mcg Given 07/28/2024 8:27 AM CDT 100 mcg melatonin tablet 3 mg 3 mg, Oral, NIGHTLY PRN, Starting on Tue07/25/24 at 1747, Until Tue07/30/24 at 1739, Other, Sleep methylPREDNISolone Na Suc (PF) (Solu-MEDROL) injection 125 mg 125 mg, Intravenous, EVERY 12 HOURS, First dose on Tue07/26/24 at 0900, Until Discontinued Given 07/30/2024 9:00 AM CDT 125 mg Given 07/29/2024 8:39 PM CDT 125 mg Given 07/29/2024 9:01 AM CDT 125 mg METHYLPREDNISOLONE NA SUC (PF) 125 MG IJ SOLR 1 dose, Starting on Tue07/25/24 at 1223, Until Tue07/30/24 at 1739, Created by cabinet override nicotine (NICODERM CQ) 21 MG/24HR patch 1 Patch 1 Patch, Transdermal, DAILY PRN, Starting on Tue07/25/24 at 1747, Until Tue07/30/24 at 1739, Administer over 24 Hours, Other, Nicotine dependency, For disposal of medication AND containers- black bin ondansetron (ZOFRAN) injection 4 mg 4 mg, Intravenous, EVERY 6 HOURS PRN, Starting on Tue07/25/24 at 1747, Until Tue07/30/24 at 1739, Nausea - 1st line, 1. First Line Antiemetic. 2. Use Injection only if patient unable to tolerate oral medications. Given 07/29/2024 12:35 PM CDT 4 mg Given 07/26/2024 8:19 AM CDT 4 mg ondansetron (ZOFRAN-ODT) disintegrating tablet 4 mg 4 mg, Oral, EVERY 6 HOURS PRN, Starting on Tue07/25/24 at 1747, Until Tue07/30/24 at 1739, Nausea - 1st line, 1. First Line Antiemetic. 2. Use PO form unless unable to tolerate PO medications, then use Injection pantoprazole (PROTONIX) tablet 40 mg 40 mg, Oral, DAILY, First dose on Tue07/25/24 at 1830, Until Discontinued, Do not crush, Indications: Symptomatic Gastroesophageal Reflux DiseaseIndications:Symptomatic Gastroesophageal Reflux Disease Given 07/30/2024 9:00 AM CDT 40 mg Given 07/29/2024 9:01 AM CDT 40 mg Given 07/28/2024 8:27 AM CDT 40 mg potassium chloride (KLOR-CON) packet 40 mEq 40 mEq, Oral, ONCE, 1 dose, On 07/28/24 at 0900, Dissolve each packet in at least 120 mL of cold water or other beverage prior to administration. If GI irritation occurs, increase dilution. Given 07/28/2024 8:35 AM CDT 40 mEq potassium chloride (KLOR-CON) packet 40 mEq 40 mEq, Oral, ONCE, 1 dose, On 07/28/24 at 1830, Dissolve each packet in at least 120 mL of cold water or other beverage prior to administration. If GI irritation occurs, increase dilution. Given 07/28/2024 6:11 PM CDT 40 mEq potassium chloride (KLOR-CON) packet 40 mEq 40 mEq, Oral, ONCE, 1 dose, On Tue07/29/24 at 0930, Dissolve each packet in at least 120 mL of cold water or other beverage prior to administration. If GI irritation occurs, increase dilution. Given 07/29/2024 9:09 AM CDT 40 mEq potassium chloride IVPB 20 mEq 100 mL 20 mEq, Intravenous, ONCE, 1 dose, On Tue07/25/24 at 1300, Administer over 2 Hours, Infuse each 20 mEq over 2 hours for a total dose of 40 mEq New Bag 07/25/2024 12:44 PM CDT 20 mEq potassium chloride IVPB 20 mEq 100 mL 20 mEq, Intravenous, ONCE, 1 dose, On Tue07/25/24 at 1600, Administer over 2 Hours, Infuse 20 mEq over 2 hours New Bag 07/25/2024 3:24 PM CDT 20 mEq potassium chloride IVPB 20 mEq 100 mL 20 mEq, Intravenous, ONCE, 1 dose, On Barb 07/26/24 at 0230, Administer over 2 Hours, Infuse each 20 mEq over 2 hours for a total dose of 40 mEq New Bag 07/26/2024 2:48 AM CDT 20 mEq potassium chloride IVPB 20 mEq 100 mL 20 mEq, Intravenous, ONCE, 1 dose, On Tue07/26/24 at 0430, Administer over 2 Hours, Infuse each 20 mEq over 2 hours for a total dose of 40 mEq New Bag 07/26/2024 4:47 AM CDT 20 mEq potassium chloride SA (KLORCON M) tablet 40 mEq 40 mEq, Oral, 2 TIMES DAILY, First dose on Tue07/25/24 at 1830, Until Discontinued, Do Not Crush Given 07/26/2024 8:19 AM CDT 40 mEq Given 07/25/2024 6:06 PM CDT 40 mEq Prochlorperazine Edisylate (COMPAZINE) injection 10 mg 10 mg, Intravenous, EVERY 6 HOURS PRN, Starting on Tue07/25/24 at 1748, Until Tue07/30/24 at 1739, Nausea - 2nd line, Second Line Antiemetic Give if nausea/vomiting recurs after ondansetron. Given 07/25/2024 6:06 PM CDT 10 mg sodium chloride 0.9 % 2,000 mL IV bolus Intravenous, ONCE, 1 dose, On Tue07/25/24 at 1230, Administer over 0.5 Hours New 07/25/2024 12:44 PM CDT 4000 mL/hr documented in this encounter Active and Recently Administered Medications Times are shown in CDT. Scheduled Medication Order 07/28/2024 07/29/2024 07/30/2024 enoxaparin (LOVENOX) injection 40 mg 40 mg, Subcutaneous, EVERY 12 HOURS SCHEDULED, First dose on Tue07/27/24 at 0900, Until Discontinued 899 (Not Given - Provider: Kaycee Galarza RN - Reason: Patient/family refused)2099 (Not Given - Provider: Nidia Sow RN - Reason: Patient/family refused) 899 (Not Given - Provider: Kaycee Galarza RN - Reason: Patient/family refused)2099 (Not Given - Provider: Nidia Sow RN - Reason: Patient/family refused) 899 (Not Given - Provider: Elliott Hdz RN - Reason: Patient/family refused) levothyroxine (SYNTHROID) tablet 100 mcg 100 mcg, Oral, EVERY MORNING BEFORE BREAKFAST, First dose on Tue07/25/24 at 1830, Until Discontinued 826 (Given - Provider: Kaycee Galarza RN) 900 (Given - Provider: Cliff Andres, Student) 899 (Given - Provider: Elliott Hdz, KRISTAL) methylPREDNISolone Na Suc (PF) (Solu-MEDROL) injection 125 mg 125 mg, Intravenous, EVERY 12 HOURS, First dose on Tue07/26/24 at 0900, Until Discontinued 826 (Given - Provider: Kaycee Galarza RN)2099 (Given - Provider: Nidia Sow RN) 900 (Given - Provider: Cliff Andres, Student)2038 (Given - Provider: Nidia Sow RN) 09 (Given - Provider: Elliott Hdz, KRISTAL) pantoprazole (PROTONIX) tablet 40 mg 40 mg, Oral, DAILY, First dose on Tue07/25/24 at 1830, Until Discontinued, Do not crush, Indications: Symptomatic Gastroesophageal Reflux Disease 826 (Given - Provider: Kaycee Galarza RN) 900 (Given - Provider: Cliff Andres, Student) 899 (Given - Provider: Elliott Hdz, KRISTAL) potassium chloride (KLOR-CON) packet 40 mEq (COMPLETED) 40 mEq, Oral, ONCE, 1 dose, On 07/28/24 at 0900, Dissolve each packet in at least 120 mL of cold water or other beverage prior to administration. If GI irritation occurs, increase dilution. 0835 (Given - Provider: Kaycee Galarza RN) potassium chloride (KLOR-CON) packet 40 mEq (COMPLETED) 40 mEq, Oral, ONCE, 1 dose, On 07/28/24 at 1830, Dissolve each packet in at least 120 mL of cold water or other beverage prior to administration. If GI irritation occurs, increase dilution. 1811 (Given - Provider: Cliff Andres, Student) potassium chloride (KLOR-CON) packet 40 mEq (COMPLETED) 40 mEq, Oral, ONCE, 1 dose, On 07/29/24 at 0930, Dissolve each packet in at least 120 mL of cold water or other beverage prior to administration. If GI irritation occurs, increase dilution. 0909 (Given - Provider: Cliff Andres, Student) Continuous Medication Order 07/28/2024 07/29/2024 07/30/2024 dextrose 5 % and 0.45% sodium chloride 1,000 mL with potassium chloride 40 mEq, sodium bicarbonate 100 mEq infusion at 150 mL/hr, Intravenous, CONTINUOUS, Starting on Barb 07/26/24 at 1300, Until 07/30/24 at 1739 0200 (Stopped - Provider: Sharri Marrero RN)0322 (New Bag - Provider: Sharri Marrero RN)1109 (Stopped - Provider: Cliff Andres, Student)1110 (New Bag - Provider: Cliff Andres Student)1900 (Stopped - Provider: Nidia Sow RN)1901 (New Bag - Provider: Nidia Sow RN) 0500 (Stopped - Provider: Nidia Sow RN)0501 (New Bag - Provider: Nidia Sow RN)1444 (Stopped - Provider: Cliff Andres Student)1445 (New Bag - Provider: Cliff Andres Student)2150 (Stopped - Provider: Nidia Sow RN)2151 (New Bag - Provider: Nidia Sow RN) 0456 (Stopped - Provider: Nidia Sow RN)0457 (New Bag - Provider: Nidia Sow RN)1348 (Stopped - Provider: Elliott Hdz RN) PRN Medication Order 07/28/2024 07/29/2024 07/30/2024 acetaminophen (TYLENOL) suppository 650 mg(Linked Group 1) 650 mg, Rectal, EVERY 4 HOURS PRN, Starting on Tue07/25/24 at 1748, Until Tue07/30/24 at 1739, Mild pain or more severe pain if patient requests, Fever, If patient is taking oral intake without complications and both PO/MO orders are active, administer through the oral route. acetaminophen (TYLENOL) tablet 650 mg(Linked Group 1) 650 mg, Oral, EVERY 4 HOURS PRN, Starting on Tue07/25/24 at 1748, Until Tue07/30/24 at 1739, Mild pain or more severe pain if patient requests, Fever, If patient is taking oral intake without complications and both PO/MO orders are active, administer through the oral route. calcium carbonate (TUMS) chewable tablet 1,000 mg 1,000 mg, Oral, EVERY 8 HOURS PRN, Starting on Tue07/25/24 at 1747, Until Tue07/30/24 at 1739, Heartburn, Indigestion diphenoxylate-atropine (LOMOTIL) 2.5-0.025 MG per tablet 1 Tablet 1 Tablet, Oral, 4 TIMES DAILY PRN, Starting on Tue07/25/24 at 1748, Until Tue07/30/24 at 1739, Diarrhea, Maximum 8 tablets in 24 hours. 08 (Given - Provider: Kaycee Galarza RN)2127 (Given - Provider: Nidia Sow RN) 909 (Given - Provider: Cliff Andres, Student)2044 (Given - Provider: Nidia Sow RN) Heparin Na (Pork) Lock Flsh PF SOLN 50 Units 50 Units, Intravenous, PRN, Starting on Tue07/30/24 at 1231, Until Tue07/30/24 at 1739, Line Care 1510 (Given - Provider: Elliott Hdz, KRISTAL) melatonin tablet 3 mg 3 mg, Oral, NIGHTLY PRN, Starting on Tue07/25/24 at 1747, Until Tue07/30/24 at 1739, Other, Sleep nicotine (NICODERM CQ) 21 MG/24HR patch 1 Patch 1 Patch, Transdermal, DAILY PRN, Starting on Tue07/25/24 at 1747, Until Tue07/30/24 at 1739, Administer over 24 Hours, Other, Nicotine dependency, For disposal of medication AND containers- black bin ondansetron (ZOFRAN) injection 4 mg(Linked Group 2) 4 mg, Intravenous, EVERY 6 HOURS PRN, Starting on Tue07/25/24 at 1747, Until Tue07/30/24 at 1739, Nausea - 1st line, 1. First Line Antiemetic. 2. Use Injection only if patient unable to tolerate oral medications. 1235 (Given - Provider: Cliff Andres, Student) ondansetron (ZOFRAN-ODT) disintegrating tablet 4 mg(Linked Group 2) 4 mg, Oral, EVERY 6 HOURS PRN, Starting on Tue07/25/24 at 1747, Until Tue07/30/24 at 1739, Nausea - 1st line, 1. First Line Antiemetic. 2. Use PO form unless unable to tolerate PO medications, then use Injection 1235 (See Alternative - Provider: Cliff Andres, Student) Prochlorperazine Edisylate (COMPAZINE) injection 10 mg 10 mg, Intravenous, EVERY 6 HOURS PRN, Starting on Tue07/25/24 at 1748, Until Tue07/30/24 at 1739, Nausea - 2nd line, Second Line Antiemetic Give if nausea/vomiting recurs after ondansetron. No Frequency Medication Order 07/28/2024 07/29/2024 07/30/2024 METHYLPREDNISOLONE NA SUC (PF) 125 MG IJ SOLR 1 dose, Starting on Tue07/25/24 at 1223, Until Tue07/30/24 at 1739, Created by cabinet override Linked Groups Order Group 1: acetaminophen (TYLENOL) tablet 650 mgJump to med 650 mg, Oral, EVERY 4 HOURS PRN, Starting on Tue07/25/24 at 1748, Until Tue07/30/24 at 1739, Mild pain or more severe pain if patient requests, Fever, If patient is taking oral intake without complications and both PO/MO orders are active, administer through the oral route. Or acetaminophen (TYLENOL) suppository 650 mgJump to med 650 mg, Rectal, EVERY 4 HOURS PRN, Starting on Tue07/25/24 at 1748, Until Tue07/30/24 at 1739, Mild pain or more severe pain if patient requests, Fever, If patient is taking oral intake without complications and both PO/MO orders are active, administer through the oral route. Group 2: ondansetron (ZOFRAN-ODT) disintegrating tablet 4 mgJump to med 4 mg, Oral, EVERY 6 HOURS PRN, Starting on Tue07/25/24 at 1747, Until Tue07/30/24 at 1739, Nausea - 1st line, 1. First Line Antiemetic. 2. Use PO form unless unable to tolerate PO medications, then use Injection Or ondansetron (ZOFRAN) injection 4 mgJump to med 4 mg, Intravenous, EVERY 6 HOURS PRN, Starting on Tue07/25/24 at 1747, Until Tue07/30/24 at 1739, Nausea - 1st line, 1. First Line Antiemetic. 2. Use Injection only if patient unable to tolerate oral medications. documented in this encounter Care Teams Qa Developer Relationship Specialty Start Date End Date Kellen Chu MD [address] [address] PCP - General Family Medicine 04/18/24 Markus Finley MD [address] [place] [address] Consulting Physician Medical Oncology 04/18/24 documented as of this encounter
--- OUTSIDE RECORDS SUMMARY | 2024-10-26 08:03 | XMS_ITS | Encounter Summary ---
Author Organization [employer] Care Team Providers Care Machine Taper Name Role Phone Pritesh Chu MD Primary Care Provider [phone] Markus Fniley MD Unavailable [phone] Encounter Details Date Type Department Care Team (Latest Contact Info) Description 08/22/2024 Travel Social History Tobacco Use Types Packs/Day Years Used Date Smoking Tobacco: Former Cigarettes 0.5 8.5 S tarted: 04/18/2016 Smokeless Tobacco: Never Alcohol Use Standard Drinks/Week Comments Yes 0 (1 standard drink = 0.6 oz pur e alcohol) [facility] Utilities Answer Date Recorded In the past 12 months has [employer], gas, oil, or water [employer] threatened to shut off services in your home? Patient declined 08/01/2024 Social Connection and Isolation Panel [NHANES] A nswer Date Recorded In a typical week, how many times do you talk on the phone with family, friends, or neighbors? Patient declined 08/01/2024 How often do you get togethe r with friends or relatives? Patient declined 08/01/2024 How often do you attend baptist or pentecostal serv ices? Patient declined 08/01/2024 Do you [...] Health [facility] of Occupat ional [facility] - Occupational Stress Questionnaire Answer [...] in the past 12 m [facility], were you homeless or living in [...] st Contact Info) Description 11/15/2024 1:00 PM CIRCUIT DESIGNER [facility] [address] [place] [address] Markus Finley MD [address] [place] [address] 11/15/2024 2:00 PM CIRCUIT DESIGNER [facility]ment [facility] [address] [place] [address] Markus Finley MD [address] [place] [address] Discharge Disposition: Discharged to home or Selfcare documented as of this encounter Visit Diagnoses Not on filedocumented in this encounter Care Teams Machine Taper Relationship Specialty Start Date End Date Pritesh Chu MD [address] [place] [address] PCP - General Family Medicine 04/18/24 Markus Finley MD [address] [place] [address] Consulting Physician Medical Oncology 04/18/24 documented as of this encounter
--- OUTSIDE RECORDS SUMMARY | 2024-10-26 08:03 | XMS_ITS | Encounter Summary ---
Author Organization [facility] Address [address] [place] [address] Phone Care Team Providers Care Desktop Specialist Name Role Phone Pritesh Chu MD Primary Care Provider [phone] Markus Finley MD Unavailable [phone] Encounter Details Date Type Department Care Team (Late st Contact Info) Description 08/07/2024 Patient Outreach [facility] [employer] Feeder Management [address] [place], [place] [id number] Lucille Lawson RN [place] Social History Tobacco Use Types Packs/Day Years Used Date Smoking Tobacco: Former Cigarettes 0.5 8.5 S tarted: 04/18/2016 Smokeless Tobacco: Never Alcohol Use Standard Drinks/Week Comments Yes 0 (1 standard drink = 0.6 oz pur e alcohol) [facility] Utilities Answer Date Recorded In the past 12 months has [employer], gas, oil, or water company threatened to [...] declined 08/01/2024 How often do you attend buddhist or advent serv ices? Patient declined 08/01/2024 Do you belong to any clubs o r organizations such as buddhist groups, unions, fraternal or athletic groups, or [...] medical care, and heating? Patient declined 08/01/2024 [facility] of Occupat ional [...] any time in the past 12 m [facility], were you homeless or living in a senior care (including now)? Patient declined 08/01/2024 Comments No Sex and Gender Information Value Date Recorded Sex Assigned at Female 06/20/2024 8:39 AM CDT Legal Sex Female 9:04 AM CDT Gender Identity Female 06/20/2024 8:39 AM CDT Sexual Orientation Bisexual 06/20/2024 8: 39 AM CDT documented as of this encounter Progress Notes * Lucille Lawson RN - 08/07/2024 2:03 PM CDT Opened in error, has been back to hospital, set follow up for later. documented in this encounter Plan of Treatment Upcoming Encounters Date Type Department Care Team (Late st Contact Info) Description 11/15/2024 1:00 PM LEATHER PRODUCTS SUPERVISOR Lab [facility] [address] [place] [address] Markus Finley MD [address] [place] [address] 11/15/2024 2:00 PM LEATHER PRODUCTS SUPERVISOR [facility]ointment [facility] [address] [place] [address] Markus Finley MD [address] [place] [address] Discharge Disposition: Discharged to home or Selfcare documented as of this encounter Visit Diagnoses Not on filedocumented in this encounter Care Teams Desktop Specialist Relationship Specialty Start Date End Date Pritesh Chu MD [address] [address] PCP - General Family Medicine 04/18/24 Markus Finley MD [address] [place] [address] Consulting Physician Medical Oncology 04/18/24 documented as of this encounter
--- OUTSIDE RECORDS SUMMARY | 2024-10-26 08:03 | XMS_ITS | Encounter Summary ---
Author Organization [facility] Address [address] [place] [address] Phone Care Team Providers Care Religious Leader Name Role Phone Pritesh Chu MD Primary Care Provider [phone] Markus Finley MD Unavailable [phone] Encounter Details Date Type Department Care Team (Late st Contact Info) Description 08/01/2024 10:30 AM CDT Clinical Support [facility] Oncology Services [address] [place] [id number] Markus Finley MD [address] [place] [address] Diarrhea due to drug (Primary Dx); Metastatic melanoma (HCC) Discharge Disposition: Discharged to home or Selfcare Social History Tobacco Use Types Packs/Day Years Used Date Smoking Tobacco: Former Cigarettes 0.5 8.5 S tarted: 04/18/2016 Smokeless Tobacco: Never Alcohol Use Standard Drinks/Week Comments Yes 0 (1 standard drink = 0.6 oz pur e alcohol) [facility] Utilities Answer Date Recorded In the past 12 months has [employer], [employer], or [employer] threatened to shut off services in your home? Patient declined 08/01/2024 Social Connection and Isolation Panel [NHANES] A nswer Date Recorded In a typical week, how many times do you talk on the phone with family, friends, or neighbors? Patient declined 08/01/2024 How often do you get togethe r with friends or relatives? Patient declined 08/01/2024 How often do you attend pentecostalism or mandaeism serv ices? Patient declined 08/01/2024 [...] medical care, and heating? Patient declined 08/01/2024 [facility] of Occupat ional Health - Occupational [...] any time in the past 12 m [facility], were you homeless or living in a senior living (including now)? Patient declined 08/01/2024 Comments No Sex and Gender Information Value Date Recorded Sex Assigned at Female 06/20/2024 8:39 AM CDT Legal Sex Female 9:04 AM CDT Gender Identity Female 06/20/2024 8:39 AM CDT Sexual Orientation Bisexual 06/20/2024 8: 39 AM CDT documented as of this encounter Last Filed Vital Signs Vital Sign Reading Time Taken Comments Blood Pressure - - Pulse 126 08/01/2024 11:03 AM CDT Temperature 36.6 ??C (97.8 ??F) 08/01/2024 1 1:03 AM CDT Respiratory Rate 18 08/01/2024 11:0 3 AM CDT Oxygen Saturation 99% 08/01/2024 11: 03 AM CDT Inhaled Oxygen Concentration - - Weight 111.6 kg (246 lb 1.6 oz) 024 11:03 AM CDT Height - - Body Mass Index 39.72 07/25/2024 2:40 PM CDT documented in this encounter Miscellaneous Notes * Interdisciplinary - Tatum Ortega, RN - 08/01/2024 10:30 AM CDT Pt wheeled into treatment room via wheelchair. Pt states that she was discharged two days ago and she felt better. Pt states that then she started with nausea vomiting and diarrhea. Medications were not able to be kept down or worked. Port accessed per protocol. Flushed with ease and blood drawn per MD orders. Fluids and medications given per MD orders. Lab results reviewed with MD SONNY states for pt to go to ER for Acute kidney failure and to be further evaluated. Report called and fluids stopped. Pt wheeled to ER by this RN via wheelchair. Port still accessed. * Interdisciplinary - Liliana Finney RN - 08/01/2024 10:30 AM CDT Updated [facility] order with specimen from [facility] in 08/2023. documented in this encounter Plan of Treatment Upcoming Encounters Date Type Department Care Team (Late st Contact Info) Description 11/15/2024 1:00 PM MANUFACTURER AGENT Lab [facility] [address] [place] [address] Markus Finley MD [address] [place] [address] 11/15/2024 2:00 PM MANUFACTURER AGENT [facility]ointment [facility] [address] [place] [address] Markus Finley MD [address] [place] [address] Discharge Disposition: Discharged to home or Selfcare documented as of this encounter Procedures Procedure Name Priority Date/Time Associated Diagnosis Comments CBC WITH AUTO DIFFERENTIAL STAT 08/01/2024 11:05 AM CDT Metastatic melanoma (HCC) THYROID STIMULATING HORMONE (TSH) STAT 08/01/2024 11:05 AM CDT Metastatic melanoma (HCC) MAGNESIUM (MG) STAT 08/01/2024 11:05 AM CDT CMP (COMPREHENSIVE METABOLIC PANEL) STAT 08/01/2024 11:05 AM CDT Metastatic melanoma (HCC) COMPLETE BLOOD COUNT (CBC) WITH DIFF STAT 08/01/2024 11:05 AM CDT Metastatic melanoma (HCC) documented in this encounter Results * (ABNORMAL) CBC WITH AUTO DIFFERENTIAL (08/01/2024 11:05 AM CDT) Pathologist [facility] WBC 17.32(H) 4.00 - 12.00 10(3)/mcL 08/01/2024 11:18 AM CDT [facility] RBC 6.09(H) 3.80 - 5.30 10(6)/mcL 08/01/2024 11:18 AM CDT [facility] HEMOGLOBIN (HGB) 18.0(H) 12.0 - 15.8 g/dL 08/01/2024 11:18 AM CDT [facility] HEMATOCRIT (HCT) 51.2(H) 36.0 - 47.0 % 08/01/2024 11:18 AM CDT [facility] MCV 84.1 82.0 - 96.0 fL 08/01/2024 11:18 AM CDT [facility] MCH 29.6 26.0 - 34.0 pg 08/01/2024 11:18 AM CDT [facility] MCHC 35.2 31.0 - 36.0 g/dL 08/01/2024 11:18 AM CDT [facility] PLATELET COUNT 472(H) 140 - 440 10(3)/mcL 08/01/2024 11:18 AM CDT [facility] RDW 13.8 11.8 - 15.5 % 08/01/2024 11:18 AM CDT [facility] MPV 9.8 9.7 - 12.4 fL 08/01/2024 11:18 AM CDT [facility] NEUTROPHILS 86.8(H) 47.0 - 73.0 % 08/01/2024 11:18 AM CDT [facility] LYMPHOCYTES 8.5(L) 18.0 - 42.0 % 08/01/2024 11:18 AM CDT [facility] MONOCYTES 4.0 4.0 - 12.0 % 08/01/2024 11:18 AM CDT [facility] EOSINOPHILS 0.1 0.0 - 5.0 % 08/01/2024 11:18 AM CDT [facility] BASOPHILS 0.6 0.0 - 1.0 % 08/01/2024 11:18 AM CDT [facility] ABSOLUTE NEUTROPHILS 15.03(H) 1.60 - 7.70 10(3)/Health system 08/01/2024 11:18 AM CDT [facility] ABSOLUTE LYMPHOCYTES 1.47 1.30 - 3.20 10(3)/Health system 08/01/2024 11:18 AM CDT [facility] ABSOLUTE MONOCYTES 0.70 0.20 - 1.00 10(3)/Health system 08/01/2024 11:18 AM CDT [facility] ABSOLUTE EOSINOPHIL 0.01 0.00 - 0.40 10(3)/Health system 08/01/2024 11:18 AM CDT [facility] ABSOLUTE BASOPHILS 0.11(H) 0.00 - 0.10 10(3)/Health system 08/01/2024 11:18 AM CDT [facility] NRBC PER 100 WBC 0 08/01/20 11:18 AM CDT [facility] Blood Venipuncture / Unknown 08/01/2024 11:05 AM CDT 08/01/2024 11:05 AM CDT us Markus Finley MD HEMATOLOGY ORDERABLES Fi nal Result [facility] [address] [place] [address] * (ABNORMAL) THYROID STIMULATING HORMONE (TSH) (08/01/2024 11:05 AM CDT) [facility] TSH 114.336(H) 0.300 - 5.000 mIU/L 08/01/2024 12:49 PM CDT [facility] Blood Venipuncture / Unknown 08/01/2024 11:05 AM CDT 08/01/2024 11:05 AM CDT Markus Finley MD CHEMISTRY ORDERABLES Fin al Result [facility] [address] [place] [address] * (ABNORMAL) CMP (COMPREHENSIVE METABOLIC PANEL) (08/01/2024 11:05 AM CDT) [facility] SODIUM 127(L) 136 - 145 mmol/L 08/01/2024 12:10 PM CDT [facility] POTASSIUM 3.3(L) 3.5 - 5.1 mmol/L 08/01/2024 12:10 PM CDT [facility] CHLORIDE 91(L) 98 - 107 mmol/L 08/01/2024 12:10 PM CDT [facility] CO2, VENOUS 15(L) 22 - 30 mmol/L 08/01/2024 12:10 PM CDT [facility] ANION GAP 24.3(H) <18.0 mmol/L 08/01/2024 12:10 PM CDT [facility] GLUCOSE 157(H) 70 - 99 mg/dL 08/01/2024 12:10 PM CDT [facility] BUN 29(H) 5 - 18 mg/dL 08/01/2024 12:10 PM CDT [facility] CREATININE, BLOOD 4.24(H) 0.60 - 1.00 mg/dL 08/01/2024 12:10 PM CDT [facility] BUN/CREATININE RATIO 7(L) 12 - 20 ratio 08/01/2024 12:10 PM CDT [facility] TOTAL PROTEIN 9.0(H) 6.3 - 8.2 g/dL 08/01/2024 12:10 PM T [facility] ALBUMIN 4.7 3.5 - 5.0 g/dL 08/01/2024 12:10 PM [facility] A/G RATIO 1.1 1.0 - 2.2 08/01/2024 12:10 PM T [facility] CALCIUM 10.6(H) 8.7 - 10.5 mg/dL 08/01/2024 12:10 PM CDT [facility] T BILI 0.7 0.2 - 1.2 mg/dL 08/01/2024 12:10 PM CDT [facility] SGOT (AST) 22 5 - 34 U/L 08/01/2024 12:10 PM [facility] SGPT (ALT) 53 0 - 55 U/L 08/01/2024 12:10 PM [facility] ALKALINE PHOSPHATASE 85 40 - 150 U/L 08/01/2024 12:10 PM [facility] IS THE PATIENT REQUIRED TO BE FASTING? No 08/01/2024 12:10 PM T [facility] GFR, ESTIMATED 14(L) >=60 08/01/2024 12:10 PM [facility] Comment: Creatinine Clearance is the preferred criteria for selecting drug dose adjustments in renally impaired patients. ??The GFR is provided as additional pertinent clinical information. GFR is reported in mL/min/1.73 sq m. Calculation based on the Chronic Kidney Disease Epidemiology Collaboration (CKD- EPI) equation refit without adjustment for race. GFR, EST. 16(L) >=60 024 12:10 PM [facility] GFR, EST. NONAFRICAN 13(L) >=60 08/01/2024 12:10 PM [facility] Blood Venipuncture / Unknown 08/01/2024 11:05 AM CDT 08/01/2024 11:05 AM CDT Markus Finley MD CHEMISTRY ORDERABLES Fin al Result [facility] [address] [place] [address] * (ABNORMAL) MAGNESIUM (MG) (08/01/2024 11:05 AM CDT) MAGNESIUM 2.7(H) 1.6 - 2.6 mg/dL 08/01/2024 12:10 PM CDT [facility] Blood Venipuncture / Unknown 08/01/2024 11:05 AM CDT 08/01/2024 11:05 AM CDT Markus Finley MD CHEMISTRY ORDERABLES Fin al Result Performing Organization Address City/[facility] Co de Phone Number [facility] [address] [place] [address] documented in this encounter Visit Diagnoses Diagnosis Diarrhea due to drug- Primary Diarrhea Metastatic melanoma (HCC) Melanoma of skin, site unspecified documented in this encounter Administered Medications Inactive Administered Medications - up to 3 most recent administrations Medication Order MAR Action Action Date Dose Rate Site 0.9 % sodium chloride with potassium chloride 20 mEq/L infusion at 500 mL/hr, Intravenous, CONTINUOUS, Starting on Tue08/01/24 at 1130, Until Tue08/01/24 at 1438, 1 literIndications:Metastatic melanoma (HCC),Diarrhea due to drug New Bag 08/01/2024 11:20 AM CDT 500 mL/hr methylPREDNISolone Na Suc (PF) (Solu-MEDROL) injection 125 mg 125 mg, Intravenous, ONCE, 1 dose, On Tue08/01/24 at 1130Indications:Metastatic melanoma (HCC),Diarrhea due to drug Given 08/01/2024 11:20 AM CDT 125 mg ondansetron (ZOFRAN) injection 8 mg 8 mg, Intravenous, ONCE, 1 dose, On Tue08/01/24 at 1130Indications:Metastatic melanoma (HCC),Diarrhea due to drug Given 08/01/2024 11:25 AM CDT 8 mg documented in this encounter Additional Health Concerns Infection Onset Date Last Indicated Resolved Time C. difficile Rule-Out 08/01/2024 08/01/20242023 7:56 PM CDT documented as of this encounter Care Teams Religious Leader Relationship Specialty Start Date End Date Pritesh Chu MD [address] [address] PCP - General Family Medicine 04/18/24 Markus Finley MD [address] [place] [address] Consulting Physician Medical Oncology 04/18/24 documented as of this encounter
--- OUTSIDE RECORDS SUMMARY | 2024-10-26 08:03 | XMS_ITS | Encounter Summary ---
Author Organization [facility] Care Team Providers Care Structural Technician Name Role Phone Pritesh Chu MD Primary Care Provider [phone] Markus Finley MD Unavailable Encounter Details Date Type Department Care Team (Latest Contact Info) Description 07/25/2024 Travel Social History Tobacco Use Types Packs/Day Years Used Date Smoking Tobacco: Former Cigarettes 0.5 8.5 S tarted: 04/18/2016 Smokeless Tobacco: Never Alcohol Use Standard Drinks/Week Comments Yes 0 (1 standard drink = 0.6 oz pur e alcohol) [facility] Utilities Answer Date Recorded In the past 12 months has [employer], gas, oil, or water [employer] threatened to shut off services in your home? Patient declined 07/25/2024 Social Connection and Isolation Panel [NHANES] A nswer Date Recorded In a typical week, how many times do you talk on the phone with family, friends, or neighbors? Patient declined 07/25/2024 How often do you get togethe r with friends or relatives? Patient declined 07/25/2024 How often do you attend caodaism or bahai serv ices? Patient declined 07/25/2024 Do you belong to any clubs o r organizations such as caodaism groups, unions, fraternal or athletic groups, or [...] medical care, and heating? Patient declined 07/25/2024 [facility] Occup[facility] ional [facility] - Occupational [...] time in the past 12 m [facility], were you homeless or living in a longterm (including now)? Patient declined 07/25/2024 Comments No Sex and Gender Information Value Date Recorded Sex Assigned at Female 06/20/2024 8:39 AM CDT Legal Sex Female 9:04 AM CDT Gender Identity Female 06/20/2024 8:39 AM CDT Sexual Orientation Bisexual 06/20/2024 8: 39 AM CDT documented as of this encounter Functional Status * Audit-C Score Answer Date of Assessment Author -1 07/25/2024 3:04 PM Dontrell Srinivasan RN * Within the last year, [...] are drinking? Patient declined 07/25/2024 3:04 PM Kiana Srinivasan RN Q3: How often do you have six or more drinks on one occasion? Patient declined 07/25/2024 3:04 PM Kiana Srinivasan S, RN documented as of this encounter Plan of Treatment Upcoming Encounters Date Type Department Care Team (Late st Contact Info) Description 11/15/2024 1:00 PM INSERTING MACHINE OPERATOR [facility] [address] [place] [id number] Markus Finley MD [address] [place] [address] 11/15/2024 2:00 PM INSERTING MACHINE OPERATOR [facility] [address] [place] [phone] Markus Finley MD [address] [place] [address] Discharge Disposition: Discharged to home or Selfcare documented as of this encounter Visit Diagnoses Not on filedocumented in this encounter Care Teams Structural Technician Relationship Specialty Start Date End Date Pritesh Chu MD [address] [place] [address] PCP - General Family Medicine 04/18/24 Markus Finley MD [address] [place] [address] Consulting Physician Medical Oncology 04/18/24 documented as of this encounter
--- OUTSIDE RECORDS SUMMARY | 2024-10-26 08:03 | XMS_ITS | Encounter Summary ---
Author Organization [facility] Address [address] [facility] [place] [address] Phone Care Team Providers Care Ceramic Plater Name Role Phone Pritesh Chu MD Primary Care Provider [phone] Markus Finley MD Unavailable [phone] Reason for Visit * Reason Comments Follow-up Melanoma Encounter Details Date Type Department Care Team (Latest Contact Info) Description 08/01/2024 2:20 PM CDT [facility] [address] [place] [phone] Markus Finley MD [address] [place] [address] Other specified hypothyroidism (Primary Dx); Diarrhea due [...] drink = 0.6 oz pur e alcohol) [facility] Utilities Answer Date Recorded In the past [...] declined 08/01/2024 How often do you attend spiritism or scientologist serv ices? Patient declined 08/01/2024 Do you belong to any clubs o r organizations such as spiritism groups, unions, fraternal or athletic groups, or [...] medical care, and heating? Patient declined 08/01/2024 [facility] of Occupat ional Health - Occupational Stress [...] time in the past 12 m [facility], were you homeless or living in [...] Author -1 08/01/2024 5:03 PM CDT Andrew Hdz RN * Within the last year, have you been humiliated or emotionally abused in other ways by your partner or ex-partner? Answer Date of Assessment Author Patient declined 08/01/2024 5:03 PM NELIAT Elliott Hdz, RN * Within the last year, have you been afraid of your partner or ex-partner? Answer Date of Assessment Author Patient declined 08/01/2024 5:03 PM NELIAT Elliott Hdz, RN * Within the last year, have [...] Author Patient declined 08/01/2024 5:03 PM NELIAT Elliott Hdz RN * Question Answer Date of Assessment [...] one occasion? Patient declined 08/01/2024 5:03 PM Elliott Monte RN documented as of this encounter Progress Notes * Seble Artis - 08/01/2024 2:20 PM CDT Images from the original note were not included. Outpatient Hem/Onc Progress Note PROGRESS NOTE Dayanara Hilton is a 24 y.o. female seen today for follow up of metastatic melanoma. Patient requests to be called Chris. She is here today for 3 week follow up to review performance status. 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 Chris reports continued nausea with emesis causing difficulties ingesting home medications. Patient reports inability to ingest oral steroids 07/31/24 and today. Patient was discharged home on Prednisone 100 mg daily and Levothyroxine 100 mcg in AM. Patient reports watery bowel movements 6+ times per day. Spouse advises of 6 watery bowel movements yesterday. Chris reports difficulties maintaining hydration and nutrition secondary to nausea with emesis. Denies improvement in nausea with Zofran. Denies use of ODT nausea medications as none available at home. Infusion nurses advise inability to obtain BP with machine or manual measurement. Multiple atte mpts with no acoustic sounds appreciated. Patient is cool to touch with patches of cyanosis in the lower extremities. She is resting in infusion bed with IVF and K+ infusing. Chris is currently on treatment with Opdivo 3 mg/kg plus Yervoy 1 mg/kg every 28 days, started on 05/01/24. Last treatment received on 07/17/24. ECOG PERFORMANCE STATUS:1 DIAGNOSIS/TREATMENT HISTORY: Metastatic melanoma [...] XT sent on tumor tissue, results pending. Will send guardant 360 in the blood 07/03/2024 --05/01/24 patient started Opdivo 3 mg/kg plus Yervoy 1 mg/kg every 28 days, cycle 2 on 05/22/24, cycle 3 on 06/12/2024 --07/03/24 hold cycle 4 due to immunotherapy mediated side effects;diarrhea with associated hypokalemia, abdominal pain, and muscle weakness Reviewed patients past medical, surgical, social, and family history. No outpatient medications have been marked as taking for the 08/01/24 encounter (Office Visit) with Markus Finley MD. Allergies as of 08/01/2024 (No Known Allergies) REVIEW OF SYSTEMS Review of Systems Constitutional: Positive for malaise/fatigue and weight loss. HENT: Positive for hearing loss (inability to hear infusion staff). Respiratory: Positive for shortness of breath. Gastrointestinal: Positive for abdominal pain, diarrhea, heartburn and nausea. Skin: Bluish tint Neurological: Positive for dizziness, weakness and headaches. Physical Exam Physical Exam Constitutional: Appearance: She is ill-appearing. Abdominal: Palpations: Abdomen is soft. Tenderness: There is abdominal tenderness (mild). Musculoskeletal: Feet: Feet: Comments: Skin graft area drawn in black with lesion drawn in red Lesion stable without increase in size since last OV Skin: General: Skin is cool. Coloration: Skin is cyanotic and mottled. Comments: Lesions drawn in red Neurological: Mental Status: She is lethargic. Motor: Weakness present. PAIN ASSESSMENT: Chris complains of abdominal pain that waxes and wanes. DATA: Lab Results Component Value Date WBC 17.32 (H) 08/01/2024 RBC 6.09 (H) 08/01/2024 HEMOGLOBIN 18.0 (H) 08/01/2024 HEMATOCRIT 51.2 (H) 08/01/2024 MCV 84.1 08/01/2024 MCH 29.6 08/01/2024 MCHC 35.2 08/01/2024 PLATELETCNT 472 (H) 08/01/2024 RDW 13.8 08/01/2024 LYMPHOCYTES 8.5 (L) 08/01/2024 RELEOS 0.1 08/01/2024 RELBAS 0.6 08/01/2024 ANC 15.03 (H) 08/01/2024 MONOCYTES 0.70 08/01/2024 EOSINOPHILS 0.01 08/01/2024 BASOPHILS 0.11 (H) 08/01/2024 Lab Results Component Value Date SODIUM 127 (L) 08/01/2024 POTASSIUM 3.3 (L) 08/01/2024 CHLORIDE 91 (L) 08/01/2024 ANIONGAP 24.3 (H) 08/01/2024 GLUCOSE 157 (H) 08/01/2024 BUN 29 (H) 08/01/2024 CREATININE 4.24 (H) 08/01/2024 TOTALPROTEIN 9.0 (H) 08/01/2024 ALBUMIN 4.7 08/01/2024 CALCIUM 10.6 (H) 08/01/2024 SGPTALT 53 08/01/2024 ALKALINEPHO 85 08/01/2024 02/21/24 [...] IMAGING STUDIES: CT abdomen pelvis done at [facility] on 06/27/2024 No evidence of [...] to dehydration and hypotension Hypokalemia Plan: 2. Patient will be transported to [facility] ED for evaluation and activation of sepsis protocol. Patientis tachycardic, with elevated WBC, and BP unable to be measured. Patient will likely need repeat course of IV steroids with potential need to present to infusion center daily M-F for IVF and steroidsto prevent need for recurrent hospital admission for ALEXX. Further treatment plan and follow up to be determined based on hospital admission course The patient was given an opportunity to ask questions, and all questions answered to patient's satisfaction. Patient verbalizes understanding of the plan as outlined above. The documentation for this visit was completed by Seble Artis acting as a scribe for Markus Moses MD. 08/01/2024, 2:39 PM CDT * Markus Finley MD - 08/01/2024 2:20 PM CDT Images from the original note were not included. Outpatient Hem/Onc Progress Note PROGRESS NOTE Dayanara Hilton is a 24 y.o. female seen today for follow up of metastatic melanoma. Patient requests to be called Chris. 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 Chris reports continued nausea with emesis causing difficulties ingesting home medications. Patient reports inability to ingest oral steroids 07/31/24 and today. Patient was discharged home on Prednisone 100 mg daily and Levothyroxine 100 mcg in AM. Patient reports watery bowel movements 6+ times per day. Spouse advises of 6 watery bowel movements yesterday. Chris reports difficulties maintaining hydration and nutrition sec ondary to nausea with emesis. Denies improvement in nausea with Zofran. Denies use of ODT nausea medications as none available at home. Infusion nurses advise inability to obtain BP with machine or manual measurement. Multiple attempts with no acoustic sounds appreciated. Patient is cool to touch with patches of cyanosis in the lower extremities. She is resting in infusion bed with IVF and K+ infusing. Chris is currently on treatment with Opdivo [...] 4 of Yervoy and Opdivo on 07/17/24 Reviewed patients past medical, surgical, social, and family history. No outpatient medications have been marked as taking for the 08/01/24 encounter (Office Visit) with Markus Finley MD. Allergies as of 08/01/2024 (No Known Allergies) REVIEW OF SYSTEMS Review of Systems Constitutional: Positive for malaise/fatigue and weight loss. HENT: Positive for hearing loss (inability to hear infusion staff). Respiratory: Positive for shortness of breath. Gastrointestinal: Positive for abdominal pain, diarrhea, heartburn and nausea. Skin: Bluish tint Neurological: Positive for dizziness, weakness and headaches. Physical Exam Physical Exam Constitutional: Appearance: She is ill-appearing. Abdominal: Palpations: Abdomen is soft. Tenderness: There is abdominal tenderness (mild). Musculoskeletal: Feet: Feet: Comments: Skin graft area drawn in black with lesion drawn in red Lesion stable without increase in size since last OV Skin: General: Skin is cool. Coloration: Skin is cyanotic and mottled. Comments: Lesions drawn in red Neurological: Mental Status: She is lethargic. Motor: Weakness present. PAIN ASSESSMENT: Chris complains of abdominal pain that waxes and wanes. DATA: Lab Results Component Value Date WBC 17.32 (H) 08/01/2024 RBC 6.09 (H) 08/01/2024 HEMOGLOBIN 18.0 (H) 08/01/2024 HEMATOCRIT 51.2 (H) 08/01/2024 MCV 84.1 08/01/2024 MCH 29.6 08/01/2024 MCHC 35.2 08/01/2024 PLATELETCNT 472 (H) 08/01/2024 RDW 13.8 08/01/2024 LYMPHOCYTES 8.5 (L) 08/01/2024 RELEOS 0.1 08/01/2024 RELBAS 0.6 08/01/2024 ANC 15.03 (H) 08/01/2024 MONOCYTES 0.70 08/01/2024 EOSINOPHILS 0.01 08/01/2024 BASOPHILS 0.11 (H) 08/01/2024 Lab Results Component Value Date SODIUM 127 (L) 08/01/2024 POTASSIUM 3.3 (L) 08/01/2024 CHLORIDE 91 (L) 08/01/2024 ANIONGAP 24.3 (H) 08/01/2024 GLUCOSE 157 (H) 08/01/2024 BUN 29 (H) 08/01/2024 CREATININE 4.24 (H) 08/01/2024 TOTALPROTEIN 9.0 (H) 08/01/2024 ALBUMIN 4.7 08/01/2024 CALCIUM 10.6 (H) 08/01/2024 SGPTALT 53 08/01/2024 ALKALINEPHO 85 08/01/2024 02/21/24 [...] IMAGING STUDIES: CT abdomen pelvis done at [facility] on 06/27/2024 No evidence of [...] Hypokalemia Plan: 1. Reviewed patient's recent clinical symptoms and lab results from today. Severe diarrhea vomiting, dehydration resulting acute kidney injury creatinine of up 2.2 today. Patient noted to be hypotensive, cold and clammy, tachycardic. 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 Will instruct ER to give her Solu-Medrol 125 mg IV every 12 hours 2. Patient will be transported to [facility] ED for evaluation and activation of sepsis protocol. Patientis tachycardic, with elevated WBC, and BP unable to be measured. Patient will likely need repeat course of IV steroids with potential need to present to infusion center daily M-F for IVF and steroidsto prevent need for recurrent hospital admission for ALEXX. Further treatment plan and follow up to be determined based on hospital admission course The patient was given an opportunity to ask questions, and all questions answered to patient's satisfaction. Patient verbalizes understanding of the plan as outlined above. The documentation for this visit was completed by Seble Artis acting as a scribe for Markus Moses MD. 08/01/2024, 11:07 PM CDT The documentation recorded by the scribe was completed while in the exam room with me and the patient. The documentation accurately reflects the service I personally performed and the decisions made by me. I have confirmed and edited the documentation as necessary. Markus Finley MD 08/01/2024, 11:09 PM CDT documented in this encounter Miscellaneous Notes * Interdisciplinary - Zabrina Raines CMA - 08/01/2024 2:20 PM CDT Pt went to ER to be seen documented in this encounter Plan of Treatment Upcoming Encounters Date Type Department Care Team (Late st Contact Info) Description 11/15/2024 1:00 PM SENIOR IT SPECIALIST Lab [facility] [address] [place] [address] Markus Finley MD [address] [place] [address] 11/15/2024 2:00 PM SENIOR IT SPECIALIST [facility]ointment [facility] [address] [place] [address] Markus Finley MD [address] [place] [address] Discharge Disposition: Discharged to home or Selfcare documented as of this encounter Visit Diagnoses Diagnosis Other specified hypothyroidism- Primary Diarrhea due to drug Diarrhea Acute renal failure, unspecified acute renal failure type (HCC) Dehydration Hypokalemia due to excessive gastrointestinal loss of potassium Metastatic melanoma (HCC) Melanoma of skin, site unspecified Immunotherapy Reserved for inherently not codable concepts WITHOUT codable children documented in this encounter Additional Health Concerns Infection Onset Date Last Indicated Resolved Time C. difficile Rule-Out 08/01/2024 08/01/20242023 7:56 PM CDT documented as of this encounter Care Teams Ceramic Plater Relationship Specialty Start Date End Date Pritesh Chu MD [address] [address] PCP - General Family Medicine 04/18/24 Markus Finley MD [address] [place] [address] Consulting Physician Medical Oncology 04/18/24 documented as of this encounter
--- OUTSIDE RECORDS SUMMARY | 2024-10-26 08:03 | XMS_ITS | Encounter Summary ---
Author Organization [facility] Address [address] [place]. [address] Phone Care Team Providers Care Point Of Sale Associate Name Role Phone Pritesh Chu MD Primary Care Provider [phone] Markus Finley MD Unavailable [phone] Encounter Details Date Type Department Care Team (Late st Contact Info) Description 08/06/2024 11:30 AM CDT Clinical Support [facility] On[facility] Services [address] [place] [phone] Makrus Finley MD [address] [place] [address] Diarrhea due to drug (Primary Dx); Metastatic melanoma (HCC) Discharge Disposition: Discharged to home or Selfcare Social History Tobacco Use Types Packs/Day Years Used Date Smoking Tobacco: Former Cigarettes 0.5 8.5 S tarted: 04/18/2016 Smokeless Tobacco: Never Alcohol Use Standard Drinks/Week Comments Yes 0 (1 standard drink = 0.6 oz pur e alcohol) [facility] Utilities Answer Date Recorded In the past 12 months has [employer], [employer], or [employer] threatened to shut off services in your home? Patient declined 08/01/2024 Social Connection and Isolation Panel [NHANES] A nswer Date Recorded In a typical week, how many times do you talk on the phone with family, friends, or neighbors? Patient declined 08/01/2024 How often do you get togethe r with friends or relatives? Patient declined 08/01/2024 How often do you attend islam or mosque serv ices? Patient declined 08/01/2024 Do you belong to any clubs o r organizations such as islam groups, unions, fraternal or athletic groups, or [...] medical care, and heating? Patient declined 08/01/2024 [facility] of Occupat ional Health - Occupational [...] in the past 12 m [facility], were you homeless or living in a [...] * Interdisciplinary - Tatum Ortega RN - 08/06/2024 11:30 AM CDT Pt ambulated into treatment room in stable condition. Vitals obtained. Port accessed per protocol. Flushed with ease and blood return not noted. Alteplase given and blood return noted after 60 min. Fluids intended effects and side effects reviewed with pt. Pt medicated per MD orders. Pt tolerated well. Port flushed and needle removed. Band aid placed. Pt discharged in stable condition. documented in this encounter Plan of Treatment Upcoming Encounters Date Type Department Care Team (Late st Contact Info) Description 11/15/2024 1:00 PM ORGANIZATIONAL PSYCHOLOGIST Lab [facility] [address] [place] [address] Markus Finley MD [address] [place] [address] 11/15/2024 2:00 PM ORGANIZATIONAL PSYCHOLOGIST [facility]ment [facility] [address] [place] [phone] Markus Finley MD [address] [place] [address] Discharge Disposition: Discharged to home or Selfcare documented as of this encounter Procedures Procedure Name Priority Date/Time Associated Diagnosis Comments CMP (COMPREHENSIVE METABOLIC PANEL) STAT 08/06/2024 1:13 PM CDT documented in this encounter Results * (ABNORMAL) CMP (Comprehensive Metabolic Panel) (08/06/2024 1:13 PM CDT) SODIUM 129(L) 136 - 145 mmol/L 08/06/2024 1:36 PM CDT [facility] POTASSIUM 3.7 3.5 - 5.1 mmol/L 08/06/2024 1:36 PM CDT [facility] CHLORIDE 106 98 - 107 mmol/L 08/06/2024 1:36 PM CDT [facility] CO2, VENOUS 16(L) 22 - 30 mmol/L 08/06/2024 1:36 PM CDT [facility] ANION GAP 10.7 <18.0 mmol/L 08/06/2024 1:36 PM CDT [facility] GLUCOSE 155(H) 70 - 99 mg/dL 08/06/2024 1:36 PM CDT [facility] BUN 14 5 - 18 mg/dL 08/06/2024 1:36 PM CDT [facility] CREATININE, BLOOD 1.15(H) 0.60 - 1.00 mg/dL 08/06/2024 1:36 PM CDT [facility] BUN/CREATININE RATIO 12 12 - 20 ratio 08/06/2024 1:36 PM CDT [facility] TOTAL PROTEIN 6.3 6.3 - 8.2 g/dL 08/06/2024 1:36 PM CDT [facility] ALBUMIN 3.5 3.5 - 5.0 g/dL 08/06/2024 1:36 PM CDT [facility] A/G RATIO 1.3 1.0 - 2.2 08/06/2024 1:36 PM CDT [facility] CALCIUM 9.0 8.7 - 10.5 mg/dL 08/06/2024 1:36 PM CDT [facility] T BILI 0.4 0.2 - 1.2 mg/dL 08/06/2024 1:36 PM CDT [facility] SGOT (AST) 19 5 - 34 U/L 08/06/2024 1:36 PM CDT [facility] SGPT (ALT) 51 0 - 55 U/L 08/06/2024 1:36 PM CDT [facility] ALKALINE PHOSPHATASE 66 40 - 150 U/L 08/06/2024 1:36 PM CDT [facility] GFR, ESTIMATED >60 >=60 08/06/2024 1:36 PM CDT [facility] Comment: Creatinine Clearance is the preferred criteria for selecting drug dose adjustments in renally impaired patients. ??The GFR is provided as additional pertinent clinical information. GFR is reported in mL/min/1.73 sq m. Calculation based on the Chronic Kidney Disease Epidemiology Collaboration (CKD- EPI) equation refit without adjustment for race. GFR, EST. >60 >=60 024 1:36 PM CDT [facility] GFR, EST. NONAFRICAN 58(L) >=60 08/06/2024 1:36 PM CDT [facility] Blood Sub-Q Port Venou s Access Device (Medi-Port, Implanted Port) / Unknown 08/06/2024 1:13 PM CDT 08/06/2024 1:13 PM CDT us Markus Finley MD CHEMISTRY ORDERABLES Fin al Result [facility] [facility] [place] [address] documented in this encounter Visit Diagnoses Diagnosis Diarrhea due to drug- Primary Diarrhea Metastatic melanoma (HCC) Melanoma of skin, site unspecified documented in this encounter Administered Medications Inactive Administered Medications - up to 3 most recent administrations Medication Order MAR Action Action Date Dose Rate Site 0.9 % sodium chloride solution at 999 mL/hr, Intravenous, CONTINUOUS, Starting on Tue08/06/24 at 1230, Until Tue08/06/24 at 1629, 1 literIndications:Diarrhea due to drug New Bag 08/06/2024 1:15 PM CDT 999 mL/hr alteplase (CATHFLO) injection 2 mg 2 mg, Injection, ONCE, 1 dose, On Tue08/06/24 at 1230Indications:Diarrhea due to drug,Metastatic melanoma (HCC) Given 08/06/2024 12:09 PM CDT 2 mg Heparin Na (Pork) Lock Flsh PF SOLN 30 Units 30 Units, Intravenous, PRN, Starting on Tue08/06/24 at 1154, Until Tue08/06/24 at 1629, Line CareIndications:Diarrhea due to drug Given 08/06/2024 2:25 PM CDT 30 Units documented in this encounter Care Teams Point Of Sale Associate Relationship Specialty Start Date End Date Pritesh Chu MD [address] [address] PCP - General Family Medicine 04/18/24 Markus Finley MD [address] [place] [address] Consulting Physician Medical Oncology 04/18/24 documented as of this encounter
--- OUTSIDE RECORDS SUMMARY | 2024-10-26 08:03 | XMS_ITS | Encounter Summary ---
Author Organization [facility] Address [address] [facility] [place] [address] Phone Care Team Providers Care Material Disposition Inspector Name Role Phone Pritesh Chu MD Primary Care Provider [phone] Marksu Finley MD Unavailable [phone] Encounter Details Date Type Department Care Team (Late st Contact Info) Description 08/20/2024 1:40 PM CDT Clinical Support [facility] Oncology Services [address] [place] [phone] Markus Finley MD [address] [place] [address] Metastatic melanoma (HCC) (Primary Dx) Discharge Disposition: Discharged to home or Selfcare Social History Tobacco Use Types Packs/Day Years Used Date Smoking Tobacco: Former Cigarettes 0.5 8.5 S tarted: 04/18/2016 Smokeless Tobacco: Never Alcohol Use Standard Drinks/Week Comments Yes 0 (1 standard drink = 0.6 oz pur e alcohol) [facility] Utilities Answer Date Recorded In the past 12 months has [employer], gas, oil, or water [employer] threatened to shut off services in your home? Patient declined 08/01/2024 Social Connection and Isolation Panel [NHANES] A nswer Date Recorded In a typical week, how many times do you talk on the phone with family, friends, or neighbors? Patient declined 08/01/2024 How often do you get togethe r with friends or relatives? Patient declined 08/01/2024 How often do you attend scientologist or restoration serv ices? Patient declined 08/01/2024 Do you belong to any clubs o r organizations such as scientologist groups, unions, fraternal or athletic groups, or [...] care, and heating? Patient declined 08/01/2024 [facility] - [...] any time in the past 12 m [facility], were you homeless or living [...] this encounter Miscellaneous Notes * Interdisciplinary - Tata Paez, RN - 08/20/2024 1:40 PM CDT Added on for labs including guardant and fluids after seeing MD. Port accessed and labs drawn. Fluids given as ordered, tolerated well. Labs reviewed,no replacements required. Port de-accessed and band-aid applied. Left infusion room in stable condition. documented in this encounter Plan of Treatment Upcoming Encounters Date Type Department Care Team (Late st Contact Info) Description 11/15/2024 1:00 PM RESEARCH ENGINEER Lab [facility] Laboratory Services [address] [place] [address] Markus Finley MD [address] [place] [address] 11/15/2024 2:00 PM RESEARCH ENGINEER Appointment [facility] MRI 1 [facility] [place] [id number] Markus Finley MD [address] [place] [address] Discharge Disposition: Discharged to home or Selfcare documented as of this encounter Procedures Procedure Name Priority Date/Time Associated Diagnosis Comments CBC WITH AUTO DIFFERENTIAL STAT 08/20/2024 2:00 PM CDT Metastatic melanoma (HCC) CMP (COMPREHENSIVE METABOLIC PANEL) STAT 08/20/2024 2:00 PM CDT Metastatic melanoma (HCC) COMPLETE BLOOD COUNT (CBC) WITH DIFF STAT 08/20/2024 2:00 PM CDT Metastatic melanoma (HCC) documented in this encounter Results * (ABNORMAL) CBC WITH AUTO DIFFERENTIAL (08/20/2024 2:00 PM CDT) WBC 5.53 4.00 - 12.00 10(3)/mcL 08/20/2024 2:54 PM CDT [facility] RBC 4.11 3.80 - 5.30 10(6)/mcL 08/20/2024 2:54 PM CDT [facility] HEMOGLOBIN (HGB) 12.3 12.0 - 15.8 g/dL 08/20/2024 2:54 PM CDT [facility] HEMATOCRIT (HCT) 36.7 36.0 - 47.0 % 08/20/2024 2:54 PM CDT [facility] MCV 89.3 82.0 - 96.0 fL 08/20/2024 2:54 PM CDT [facility] MCH 29.9 26.0 - 34.0 pg 08/20/2024 2:54 PM CDT [facility] MCHC 33.5 31.0 - 36.0 g/dL 08/20/2024 2:54 PM CDT [facility] PLATELET COUNT 263 140 - 440 10(3)/[facility] 08/20/2024 2:54 PM CDT [facility] RDW 14.5 11.8 - 15.5 % 08/20/2024 2:54 PM CDT [facility] MPV 9.6(L) 9.7 - 12.4 fL 08/20/2024 2:54 PM CDT [facility] NEUTROPHILS 90.0(H) 47.0 - 73.0 % 08/20/2024 2:54 PM CDT [facility] LYMPHOCYTES 5.8(L) 18.0 - 42.0 % 08/20/2024 2:54 PM CDT [facility] MONOCYTES 4.2 4.0 - 12.0 % 08/20/2024 2:54 PM CDT [facility] EOSINOPHILS 0.0 0.0 - 5.0 % 08/20/2024 2:54 PM CDT [facility] BASOPHILS 0.0 0.0 - 1.0 % 08/20/2024 2:54 PM CDT [facility] ABSOLUTE NEUTROPHILS 4.98 1.60 - 7.70 10(3)/[facility] 08/20/2024 2:54 PM CDT [facility] ABSOLUTE LYMPHOCYTES 0.32(L) 1.30 - 3.20 10(3)/[facility] 08/20/2024 2:54 PM CDT [facility] ABSOLUTE MONOCYTES 0.23 0.20 - 1.00 10(3)/[facility] 08/20/2024 2:54 PM CDT [facility] ABSOLUTE EOSINOPHIL 0.00 0.00 - 0.40 10(3)/[facility] 08/20/2024 2:54 PM CDT [facility] ABSOLUTE BASOPHILS 0.00 0.00 - 0.10 10(3)/[facility] 08/20/2024 2:54 PM CDT [facility] NRBC PER 100 WBC 0 08/20/20 2:54 PM CDT [facility] Blood Venipuncture / Unknown 08/20/2024 2:00 PM CDT 08/20/2024 2:02 PM CDT us Markus Finley MD HEMATOLOGY ORDERABLES Fi nal Result [facility] [address] [place] [address] * (ABNORMAL) CMP (COMPREHENSIVE METABOLIC PANEL) (08/20/2024 2:00 PM CDT) SODIUM 133(L) 136 - 145 mmol/L 08/20/2024 2:59 PM CDT [facility] POTASSIUM 4.3 3.5 - 5.1 mmol/L 08/20/2024 2:59 PM CDT [facility] CHLORIDE 106 98 - 107 mmol/L 08/20/2024 2:59 PM CDT [facility] CO2, VENOUS 18(L) 22 - 30 mmol/L 08/20/2024 2:59 PM CDT [facility] ANION GAP 13.3 <18.0 mmol/L 08/20/2024 2:59 PM CDT [facility] GLUCOSE 121(H) 70 - 99 mg/dL 08/20/2024 2:59 PM CDT [facility] BUN 18 5 - 18 mg/dL 08/20/2024 2:59 PM CDT [facility] CREATININE, BLOOD 0.87 0.60 - 1.00 mg/dL 08/20/2024 2:59 PM CDT [facility] BUN/CREATININE RATIO 21(H) 12 - 20 ratio 08/20/2024 2:59 PM CDT [facility] TOTAL PROTEIN 6.0(L) 6.3 - 8.2 g/dL 08/20/2024 2:59 PM CDT [facility] ALBUMIN 3.7 3.5 - 5.0 g/dL 08/20/2024 2:59 PM CDT [facility] A/G RATIO 1.6 1.0 - 2.2 08/20/2024 2:59 PM CDT [facility] CALCIUM 8.9 8.7 - 10.5 mg/dL 08/20/2024 2:59 PM CDT [facility] T BILI 0.4 0.2 - 1.2 mg/dL 08/20/2024 2:59 PM CDT [facility] SGOT (AST) 13 5 - 34 U/L 08/20/2024 2:59 PM CDT [facility] SGPT (ALT) 43 0 - 55 U/L 08/20/2024 2:59 PM CDT [facility] ALKALINE PHOSPHATASE 64 40 - 150 U/L 08/20/2024 2:59 PM CDT [facility] IS THE PATIENT REQUIRED TO BE FASTING? No 08/20/2024 2:59 PM CDT [facility] GFR, ESTIMATED >60 >=60 08/20/2024 2:59 PM CDT [facility] Comment: Creatinine Clearance is the preferred criteria for selecting drug dose adjustments in renally impaired patients. ??The GFR is provided as additional pertinent clinical information. GFR is reported in mL/min/1.73 sq m. Calculation based on the Chronic Kidney Disease Epidemiology Collaboration (CKD- EPI) equation refit without adjustment for race. GFR, EST. >60 >=60 024 2:59 PM CDT [facility] GFR, EST. NONAFRICAN >60 >=60 08/20/2024 2:59 PM CDT [facility] Blood Venipuncture / Unknown 08/20/2024 2:00 PM CDT 08/20/2024 2:02 PM CDT Markus Finley MD CHEMISTRY ORDERABLES Fin al Result [facility] [address] [place] [address] documented in this encounter Visit Diagnoses Diagnosis Metastatic melanoma (HCC)- Primary Melanoma of skin, site unspecified documented in this encounter Administered Medications Inactive Administered Medications - up to 3 most recent administrations Medication Order MAR Action Action Date Dose Rate Site 0.9 % sodium chloride solution at 999 mL/hr, Intravenous, ONCE, 1 dose, On Tue08/20/24 at 1430Indications:Metastatic melanoma (HCC) New Bag 08/20/2024 2:00 PM CDT 1,000 mL 999 mL/hr Heparin Na (Pork) Lock Flsh PF SOLN 30 Units 30 Units, Intravenous, PRN, Starting on Tue08/20/24 at 1323, Until Tue08/20/24 at 1737, Line CareIndications:Metastatic melanoma (HCC) Given 08/20/2024 3:06 PM CDT 30 Units documented in this encounter Care Teams Material Disposition Inspector Relationship Specialty Start Date End Date Pritesh Chu MD [address] [address] PCP - General Family Medicine 04/18/24 Markus Finley MD [address] [place] [address] Consulting Physician Medical Oncology 04/18/24 documented as of this encounter
--- OUTSIDE RECORDS SUMMARY | 2024-10-26 08:03 | XMS_ITS | Encounter Summary ---
Author Organization [facility] Care Team Providers Care Typecasting Machine Operator Name Role Phone Pritesh Chu MD Primary Care Provider [phone] Markus Finley MD Unavailable [phone] Encounter Details Date Type Department Care Team (Latest Contact Info) Description 08/08/2024 Travel Social History Tobacco Use Types Packs/Day Years Used Date Smoking Tobacco: Former Cigarettes 0.5 8.5 S tarted: 04/18/2016 Smokeless Tobacco: Never Alcohol Use Standard Drinks/Week Comments Yes 0 (1 standard drink = 0.6 oz pur e alcohol) [facility] Utilities Answer Date Recorded In the past 12 months has [employer], gas, oil, or water [employer] threatened to shut off services in your home? Patient declined 08/01/2024 Social Connection and Isolation Panel [NHANES] A nswer Date Recorded In a typical week, how many times do you talk on the phone with family, friends, or neighbors? Patient declined 08/01/2024 How often do you get togethe r with friends or relatives? Patient declined 08/01/2024 How often do you attend muslim or scientology serv ices? Patient declined 08/01/2024 Do you belong to any clubs o r organizations such as muslim groups, unions, fraternal or athletic groups, or [...] medical care, and heating? Patient declined 08/01/2024 [facility] - Occupational Stress Questionnaire Answer [...] any time in the past 12 m [facility], were you homeless or living in a assisted (including now)? Patient declined 08/01/2024 Comments No [...] st Contact Info) Description 11/15/2024 1:00 PM [facility] [address] [place] [address] Markus Finley MD [address] [place] [address] 11/15/2024 2:00 PM [facility]ER [facility] [address] [place] [phone] Markus Finley MD [address] [place] [address] Discharge Disposition: Discharged to home or Selfcare documented as of this encounter Visit Diagnoses Not on filedocumented in this encounter Care Teams Typecasting Machine Operator Relationship Specialty Start Date End Date Pritesh Chu MD [address] [place] [address] PCP - General Family Medicine 04/18/24 Markus Finley MD [address] [place] [address] Consulting Physician Medical Oncology 04/18/24 documented as of this encounter
--- OUTSIDE RECORDS SUMMARY | 2024-10-26 08:03 | XMS_ITS | Encounter Summary ---
Author Organization [facility] Address [address] [facility] [place] [address] Phone Care Team Providers Care Ambulance Assistant Name Role Phone Pritesh Chu MD Primary Care Provider [phone] Markus Finley MD Unavailable [phone] Zander Cha MD Unavailable Reason for Referral * Consult, Test & Initiate Treatment (Routine) - Closed Specialty Diagnoses / Procedures Referred By Contross t Referred To Contact General Surgery Diagnoses Metastatic melanoma (HCC) Subcutaneous nodule of left lower extremity Markus Finley MD [address] [place] [address] Phone: tel: fax: [facility] - General Surgery [facility] [facility] [address] [address] Phone: tel: fax: Referral ID Status Reason Start Date Expiration Date Visits Re quested Visits Authorized [id number] Closed 08/22/2024 1 1 Scheduling Instructions Dayanara is being referred for excision of a subcutaneous nodule in the left lower extremity for pathologic testing, metastatic melanoma. See below for Dayanara's current medications, allergies and problem list. Please contact patient for scheduling questions or concerns. CURRENT MEDS: Current Outpatient Medications: colestipol (COLESTID) 1 GM Tablet, Take 1 Tablet by mouth 2 times daily., Disp: 60 Tablet, Rfl: 2 diphenoxylate-atropine (LOMOTIL) 2.5-0.025 MG Tablet, Take 1 Tablet by mouth 4 times daily as needed for Diarrhea., Disp: 60 Tablet, Rfl: 2 HYDROcodone-acetaminophen (NORCO) 5-325 MG Tablet, Take 1 Tablet by mouth every 4 hours as needed for Moderate or more severe pain., Disp: 20 Tablet, Rfl: 0 Junel Fe 24 1-20 MG-MCG(24) Tablet, Take 1 Tablet by mouth daily., Disp: , Rfl: levothyroxine (SYNTHROID) 100 MCG Tablet, Take 1 Tablet by mouth every morning (before breakfast) for 90 days., Disp: 90 Tablet, Rfl: 0 omeprazole (PriLOSEC) 40 MG CAPSULE DELAYED RELEASE, [...] Dissolve in 4-8 oz of liquid. Indications: Constipation, Disp: 90 Packet, Rfl: 0 potassium chloride (Klor-Con) 20 MEQ Pack, Take 1 Packet by mouth 2 times daily., Disp: 60 Packet, Rfl: 3 predniSONE (DELTASONE) 20 MG Tablet, Take 100mg in AM and 20mg in PM, Disp: 90 Tablet, Rfl: 0 predniSONE (DELTASONE) 50 MG Tablet, Take 2 Tablets by mouth daily for 30 days., Disp: 60 Tablet, Rfl: 0 prochlorperazine (COMPAZINE) 10 MG Tablet, Take 1 Tablet by mouth every 6 hours as needed for Nausea - 2nd line., Disp: 30 Tablet, Rfl: 1 senna (SENOKOT) 8.6 MG Tablet, Take 1 Tablet by mouth 2 times daily as needed for Constipation - 2nd line., Disp: 30 Tablet, Rfl: 0 sodium chloride 0.9 % Solution, 1,000 mL by Intravenous route continuous for 20 days. Patient to get 1000 mL of IV fluids normal saline daily via port., Disp: 80496 mL, Rfl: 0 No current facility-administered medications for this visit. Facility-Administered Medications Ordered in Other Visits: 0.9 % sodium chloride solution, 1,000 mL, Intravenous, Continuous, Markus Finley MD, Stopped at 08/22/24 1300 Heparin Na (Pork) Lock Flsh PF SOLN 50 Units, 50 Units, Intravenous, PRN, Markus Finley MD ALLERGIES: No Known Allergies PROBLEM LIST: Patient [...] type (HCC) Metabolic acidosis, increased anion gap Reason for Visit * Reason Comments Follow-up Encounter Details Date Type Department Care Team (Latest Contact Info) Description 08/20/2024 1:00 PM CDT Office Visit [facility] Oncology Services [address] [place] [address] Markus Finley MD [address] [place] [address] Non-alcoholic fatty liver disease (Primary Dx); Diarrhea [...] drink = 0.6 oz pur e alcohol) [facility] Utilities Answer Date Recorded In the past 12 months has e [employer], gas, oil, or water [employer] threatened to shut off services in your home? Patient declined 08/01/2024 Social Connection and Isolation Panel [NHANES] A nswer Date Recorded In a typical week, how many times do you talk on the phone with family, friends, or neighbors? Patient declined 08/01/2024 How often do you get togethe r with friends or relatives? Patient declined 08/01/2024 How often do you attend islam or druze serv ices? Patient declined 08/01/2024 Do you [...] medical care, and heating? Patient declined 08/01/2024 [facility] - Occupational Stress Questionnaire Answer [...] any time in the past 12 m [facility], were you homeless or living in a group home (including now)? Patient declined 08/01/2024 Comments No Sex and Gender Information Value Date Recorded Sex Assigned at Female 06/20/2024 8:39 AM CDT Legal Sex Female 9:04 AM CDT Gender Identity Female 06/20/2024 8:39 AM CDT Sexual Orientation Bisexual 06/20/2024 8: 39 AM CDT documented as of this encounter Last Filed Vital Signs Vital Sign Reading Time Taken Comments Blood Pressure 130/83 08/20/2024 1:04 PM CDT Pulse 89 08/20/2024 1:04 PM CDT Temperature 36.4 ??C (97.6 ??F) 08/20/2024 1:04 PM CD T Respiratory Rate 20 08/20/2024 1:04 PM CDT Oxygen Saturation 100% 08/20/2024 1:04 PM CDT Inhaled Oxygen Concentration - - Weight 111.8 kg (246 lb 8 oz) 08/20/2024 1:04 PM CDT Height 167.6 cm (5' 6 ) 08/20/2024 1:04 PM CDT Body Mass Index 39.79 08/20/2024 1:04 PM CDT documented in this encounter Progress Notes * Seble Artis - 08/20/2024 1:00 PM CDT Outpatient Hem/Onc Progress Note PROGRESS NOTE Dayanara Hilton is a 24 y.o. female seen today for follow up of metastatic melanoma. Patient requests to be called Chris. Chris was on treatment with Opdivo 3 mg/kg plus Yervoy 1 mg/kg every 28 days, started on 05/01/24. Last treatment received on 07/17/24. 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 Patient was discharged home with plans to continue IV NS through infusion clinic along with Prednisone 100 mg po BID plus Levothyroxine 100 mcg po AM. Oral steroids were decreased to Prednisone 100 mg AM with 20 mg PM on 08/10/24. Chris complains of headache with sense of pressure and pain in the scalp. Patient reports this headache developed after starting oral steroids, denying previous occurrence. Reports gradual development of dizziness. Chris reports one episode of nausea with emesis after consuming PB&J. Patient denies any episodes of nausea with emesis over the last 36 hours. Reports ingesting oatmeal and eggs today. She reports gradual change in stool from formed to watery consistency. Patient reports 3 episodes of diarrhea today. Reports diarrhea exacerbated by movement with 7 bowel movements yesterday. Patient reports 4 of 7 bowel movements were straight water. Chris was treated with Bactrim BID for 5 days on 08/10/24 for nail infection. Patient unsure if diarrhea features have changed to indicate alternate cause of symptom. Denies fattier appearance to stool. Chris reports currently taking Lomotil 8 AM and 8 PM with two tabs Imodium in between for mild symptom. Patient reports abdominal gas pains developing with Lomotil 4 tabs daily. Chris reports currently taking Klorcon 3 packets BID (60 MEQ BID). 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 Reviewed patients past medical, surgical, social, and family history. Outpatient Medications Marked as Taking for the 08/20/24 encounter (Office Visit) with Markus Finley MD Medication Sig Dispense Refill diphenoxylate-atropine (LOMOTIL) 2.5-0.025 MG Tablet Take 1 Tablet by mouth 4 times daily as neededfor Diarrhea. 60 Tablet 1-20 MG-MCG(24) Tablet Take 1 Tablet by mouth daily. levothyroxine (SYNTHROID) 100 MCG Tablet Take 1 Tablet by mouth every morning (before breakfast) for 90 days. 90 Tablet 0 omeprazole (PriLOSEC) 40 MG CAPSULE DELAYED RELEASE Take 1 Capsule by mouth daily. 90 Capsule 1 potassium chloride (Klor-Con) 20 MEQ Pack Take 1 Packet by mouth 2 times daily. 60 Packet 3 predniSONE (DELTASONE) 20 MG Tablet Take 100mg in AM and 20mg in PM 90 Tablet 0 predniSONE (DELTASONE) 50 MG Tablet Take 2 Tablets by mouth daily for 30 days. 60 Tablet 0 Allergies as of 08/20/2024 (No Known Allergies) REVIEW OF SYSTEMS Review [...] DATA: Lab Results Component Value Date WBC 11.54 08/10/2024 RBC 3.93 08/10/2024 HEMOGLOBIN 11.8 (L) 08/10/2024 MCV 87.3 08/10/2024 MCH 30.0 08/10/2024 MCHC 34.4 08/10/2024 PLATELETCNT 213 08/10/2024 RDW 14.4 08/10/2024 LYMPHOCYTES 5.2 (L) 08/10/2024 RELEOS 0.0 08/10/2024 RELBAS 0.1 08/10/2024 ANC 10.39 (H) 08/10/2024 MONOCYTES 0.54 08/10/2024 EOSINOPHILS 0.00 08/10/2024 BASOPHILS 0.01 08/10/2024 Lab Results Component Value Date SODIUM 132 (L) 08/15/2024 POTASSIUM 4.0 08/15/2024 CHLORIDE 100 08/15/2024 ANIONGAP 11.0 08/15/2024 GLUCOSE 87 08/15/2024 BUN 24 (H) 08/15/2024 CREATININE 0.91 08/15/2024 TOTALPROTEIN 6.2 (L) 08/15/2024 ALBUMIN 3.7 08/15/2024 CALCIUM 8.8 08/15/2024 SGPTALT 69 (H) 08/15/2024 ALKALINEPHO 65 08/15/2024 02/21/24 PATHOLOGY REPORT OSH: FINAL DIAGNOSIS: Skin, [...] 4.[address] abdomen pelvis done at [facility] on 06/27/2024 No evidence of appendicitis. No [...] dehydration and hypotension Hypokalemia Plan: 2. Continue current prednisone 100 mg p.o.AM with 20 mg PM. 3. Will start patient on Colestipol 1 GM BID in attempt to improve diarrhea secondary to bile acids. 4. Continue Lomotil 2.5 mg every 6-8 hours as needed for severe diarrhea. Patient was encouraged touse OTC Imodium as needed for less severe [...] hours alternating for break through symptoms. 8. 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 Discussed with patient at length why this additional tissue sample is needed. Will discuss withDr. Sims to see if he is agreeable to complete this testing here or if patient needs referral to oncological surgeon at [facility]. 9. Obtain C.diff stool testing to assess for cause of continued diarrhea given recent use of Bactrim. Patient is agreeable to this plan. Follow up in # week The patient was given an opportunity to ask questions, and all questions answered to patient's satisfaction. Patient verbalizes understanding of the plan as outlined above. The documentation for this visit was completed by Seble Artis acting as a scribe for Markus Moses MD. 08/20/2024, 1:24 PM CDT * Markus Finley MD - 08/20/2024 1:00 PM CDT Outpatient Hem/Onc Progress Note PROGRESS NOTE Dayanara Hilton is a 24 y.o. female seen today for follow up of metastatic melanoma. Patient requests to be called Chris. Chris was on treatment with Opdivo 3 mg/kg plus Yervoy 1 mg/kg every 28 days, started on 05/01/24. Last treatment received on 07/17/24. 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 Patient was discharged home with plans to continue IV NS through infusion clinic along with Prednisone 100 mg po BID plus Levothyroxine 100 mcg po AM. Oral steroids were decreased to Prednisone 100 mg AM with 20 mg PM on 08/10/24. Chris complains of headache with sense of pressure and pain in the scalp. Patient reports this headache developed after starting oral steroids, denying previous occurrence. Reports gradual development of dizziness. Chris reports one episode of nausea with emesis after consuming PB&J. Patient denies any episodes of nausea with emesis over the last 36 hours. Reports ingesting oatmeal and eggs today. She reports gradual change in stool from formed to watery consistency. Patient reports 3 episodes of diarrhea today. Reports diarrhea exacerbated by movement with 7 bowel movements yesterday. Patient reports 4 of 7 bowel movements were straight water. Chris was treated with Bactrim BID for 5 days on 08/10/24 for nail infection. Patient unsure if diarrhea features have changed to indicate alternate cause of symptom. Denies fattier appearance to stool. Chris reports currently taking Lomotil 8 AM and 8 PM with two tabs Imodium in between for mild symptom. Patient reports abdominal gas pains developing with Lomotil 4 tabs daily. Chris reports currently taking Klorcon 3 packets BID (60 MEQ BID). 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 Reviewed patients past medical, surgical, social, and family history. Outpatient Medications Marked as Taking for the 08/20/24 encounter (Office Visit) with Markus Finley MD Medication Sig Dispense Refill diphenoxylate-atropine (LOMOTIL) 2.5-0.025 MG Tablet Take 1 Tablet by mouth 4 times daily as neededfor Diarrhea. 60 Tablet 2 1-20 MG-MCG(24) Tablet Take 1 Tablet by mouth daily. levothyroxine (SYNTHROID) 100 MCG Tablet Take 1 Tablet by mouth every morning (before breakfast) for 90 days. 90 Tablet 0 omeprazole (PriLOSEC) 40 MG CAPSULE DELAYED RELEASE Take 1 Capsule by mouth daily. 90 Capsule 1 potassium chloride (Klor-Con) 20 MEQ Pack Take 1 Packet by mouth 2 times daily. 60 Packet 3 predniSONE (DELTASONE) 20 MG Tablet Take 100mg in AM and 20mg in PM 90 Tablet 0 predniSONE (DELTASONE) 50 MG Tablet Take 2 Tablets by mouth daily for 30 days. 60 Tablet 0 Allergies as of 08/20/2024 (No Known Allergies) REVIEW OF SYSTEMS Review [...] DATA: Lab Results Component Value Date WBC 5.53 08/20/2024 RBC 4.11 08/20/2024 HEMOGLOBIN 12.3 08/20/2024 MCV 89.3 08/20/2024 MCH 29.9 08/20/2024 MCHC 33.5 08/20/2024 PLATELETCNT 263 08/20/2024 RDW 14.5 08/20/2024 LYMPHOCYTES 5.8 (L) 08/20/2024 RELEOS 0.0 08/20/2024 RELBAS 0.0 08/20/2024 ANC 4.98 08/20/2024 MONOCYTES 0.23 08/20/2024 EOSINOPHILS 0.00 08/20/2024 BASOPHILS 0.00 08/20/2024 Lab Results Component Value Date SODIUM 138 08/24/2024 POTASSIUM 3.5 08/24/2024 CHLORIDE 106 08/24/2024 ANIONGAP 13.5 08/24/2024 GLUCOSE 98 08/24/2024 BUN 17 08/24/2024 CREATININE 0.95 08/24/2024 TOTALPROTEIN 5.6 (L) 08/24/2024 ALBUMIN 3.5 08/24/2024 CALCIUM 8.7 08/24/2024 SGPTALT 107 (H) 08/24/2024 ALKALINEPHO 56 08/24/2024 02/21/24 PATHOLOGY REPORT OSH: FINAL DIAGNOSIS: Skin, [...] 4.[address] abdomen pelvis done at [facility] on 06/27/2024 No evidence of appendicitis. No [...] dehydration and hypotension Hypokalemia Plan: 1. Reviewed above clinical data including recent symptoms, labs, imaging and pathology results withpatient and family. Made them aware of imaging and labs. PET scan shows disappointing results with new left inguinal lymph node with not much change in the left LE subcutaneous nodules. In addition, she is not tolerating immunotherapy well at all. We tried sending tissue for NGS to check for BRAF mutations however there was not enough tissue to test for them. Will request gen surgery for excisional bx of one of these nodules to get NGS via [facility] or [facility]us to help guide therapy. Discussed diagnosis, treatment options and prognostic implication of disease. 2. Continue current prednisone 100 mg p.o.AM with 20 mg PM. 3. Will start patient on Colestipol 1 GM BID in attempt to improve diarrhea 4. Continue Lomotil 2.5 mg every 6-8 hours as needed for severe diarrhea. Patient was encouraged touse OTC Imodium as needed for less severe [...] hours alternating for break through symptoms. 8. 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 Discussed with patient at length why this additional tissue sample is needed. Will discuss withDr. Sims to see if he is agreeable to complete this testing here or if patient needs referral to oncological surgeon at [facility]. 9. Obtain C.diff stool testing to assess for cause of continued diarrhea given recent use of Bactrim. Patient is agreeable to this plan. Follow up in 2-3 weeks The patient was given an opportunity to ask questions, and all questions answered to patient's satisfaction. Patient verbalizes understanding of the plan as outlined above. The documentation for this visit was completed by Seble Artis acting as a scribe for Markus Moses MD. 08/25/2024, 2:57 PM CDT The documentation recorded by the scribe was completed while in the exam room with me and the patient. The documentation accurately reflects the service I personally performed and the decisions made by me. I have confirmed and edited the documentation as necessary. Markus Finley MD 08/25/2024, 2:59 PM CDT documented in this encounter Miscellaneous Notes * Interdisciplinary - Sandra Mcclelland - 08/20/2024 1:00 PM CDT The patient reports fatigue, diarrhea x4 today, and abdominal pain. Pain score is 3/10. Patient states she is still eating small meals w/ no nausea. * Interdisciplinary - Sandra Mcclelland - 08/20/2024 1:00 PM CDT AVS printed. Patient escorted to the infusion center for blood work. She will follow up in 2-3 weeks. documented in this encounter Plan of Treatment Upcoming Encounters Date Type Department Care Team (Late st Contact Info) Description 11/15/2024 1:00 PM STITCHING MACHINE [facility]TER [facility] [address] [place] [address] Markus Finley MD [address] [place] [address] 11/15/2024 2:00 PM STITCHING MACHINE SETTER [facility] [address] [facility] [place] [address] Markus Finley MD [address] [place] [address] Discharge Disposition: Discharged to home or Selfcare Scheduled Referrals Name Type Priority Associated Diagnoses Orde r Schedule GEN SURGICAL REFERRAL Outpatient Referral Routine Metastatic melanoma (HCC) Subcutaneous nodule of left lower extremity Expected: 08/22/2024, Expires: 10/21/2024 documented as of this encounter Visit Diagnoses Diagnosis Non-alcoholic fatty liver disease- Primary Other chronic nonalcoholic liver disease Diarrhea due to drug Diarrhea Morbid obesity (HCC) Morbid obesity Hypokalemia due to excessive gastrointestinal loss of potassium Hypothyroidism due to medication Metastatic melanoma (HCC) Melanoma of skin, site unspecified Subcutaneous nodule of left lower extremity documented in this encounter Additional Health Concerns Infection Onset Date Last Indicated Resolved Time C. difficile Rule-Out 08/24/2024 08/24/20242023 1:42 PM CDT documented as of this encounter Care Teams Ambulance Assistant Relationship Specialty Start Date End Date Pritesh Chu MD [address] [place] [address] PCP - General Family Medicine 04/18/24 Markus Finley MD [address] [place] [address] Consulting Physician Medical Oncology 04/18/24 Zander Cha MD [address] [address] Consulting Physician Colon and Rectal Surgery 08/24/24 documented as of this encounter
--- OUTSIDE RECORDS SUMMARY | 2024-10-26 08:03 | XMS_ITS | Encounter Summary ---
Author Organization [facility] Address [address] [facility] [place] [address] Phone Care Team Providers Care Erp Manager Name Role Phone Pritesh Chu MD Primary Care Provider [phone] Markus Finley MD Unavailable [phone] Reason for Visit * Episode Based Medications (Routine) - Closed Specialty Diagnoses / Procedures Referred By Contross t Referred To Contact Diagnoses Metastatic melanoma (HCC) Markus Finley MD [address] [place] [address] Phone: tel: fax: [facility] [address] [place] [address] Phone: tel: fax: Referral ID Status Reason Start Date Expiration Date Visits Re quested Visits Authorized [id number] Closed 04/19/2024 1 30 Encounter Details Date Type Department Care Team (Late st Contact Info) Description 08/15/2024 11:30 AM CDT Clinical Support [facility] [address] [place] [address] Markus Finley MD [address] [place] [address] Metastatic melanoma (HCC) Discharge Disposition: Discharged to home or Selfcare Social History Tobacco Use Types Packs/Day Years Used Date Smoking Tobacco: Former Cigarettes 0.5 8.5 S tarted: 04/18/2016 Smokeless Tobacco: Never Alcohol Use Standard Drinks/Week Comments Yes 0 (1 standard drink = 0.6 oz pur e alcohol) [facility] Utilities Answer Date Recorded In [...] declined 08/01/2024 How often do you attend latter-day or sabianist serv ices? Patient declined 08/01/2024 Do you belong to any clubs o r organizations such as latter-day groups, unions, fraternal or athletic groups, or [...] medical care, and heating? Patient declined 08/01/2024 [facility] of Occupat ional Health - Occupational Stress [...] were you homeless or living in a fci (including now)? Patient declined 08/01/2024 Comments No Sex and Gender Information Value Date Recorded Sex Assigned at Female 06/20/2024 8:39 AM CDT Legal Sex Female 9:04 AM CDT Gender Identity Female 06/20/2024 8:39 AM CDT Sexual Orientation Bisexual 06/20/2024 8: 39 AM CDT documented as of this encounter Last Filed Vital Signs Vital Sign Reading Time Taken Comments Blood Pressure 134/87 08/15/2024 11:26 AM CDT Pulse 83 08/15/2024 11:26 AM CDT Temperature 36.1 ??C (96.9 ??F) 08/15/2024 11:26 AM C DT Respiratory Rate 16 08/15/2024 11:26 AM CDT Oxygen Saturation 100% 08/15/2024 11:26 AM CDT Inhaled Oxygen Concentration - - Weight - - Height - - Body Mass Index - - documented in this encounter Progress Notes * Kiana Henriquez, RN - 08/15/2024 11:30 AM CDT Patient arrived to Infusion for lab/hydration fluids. Port accessed with Power Loc 1 inch needle. Good blood return, flushes easily. See flowsheet. Labs assesses. IV fluid hydration given as order per Dr. Finley. 1245 Patient remains in infusion with port accessed awaiting PET scan.[id number] nurse called to PET scan to flush/deaccess port. Port flushed per protocol, needle removed and discarded per PET staff, bandaid applied. Patient will be return to infusion for her belongings and be discharged. No concerns. documented in this encounter Plan of Treatment Upcoming Encounters Date Type Department Care Team (Late st Contact Info) Description 11/15/2024 1:00 PM [facility]NOS [facility] [address] [place] [address] Markus Finley MD [address] [place] [address] 11/15/2024 2:00 PM COGNOS Appointment [facility] [place] [address] Markus Finley MD [address] [place] [address] Discharge Disposition: Discharged to home or Selfcare documented as of this encounter Procedures Procedure Name Priority Date/Time Associated Diagnosis Comments CMP (COMPREHENSIVE METABOLIC PANEL) STAT 08/15/2024 11:35 AM CDT Metastatic melanoma (HCC) documented in this encounter Results * (ABNORMAL) CMP (COMPREHENSIVE METABOLIC PANEL) (08/15/2024 11:35 AM CDT) SODIUM 132(L) 136 - 145 mmol/L 08/15/2024 12:21 PM CDT [facility] POTASSIUM 4.0 3.5 - 5.1 mmol/L 08/15/2024 12:21 PM T [facility] CHLORIDE 100 98 - 107 mmol/L 08/15/2024 12:21 PM CDT [facility] CO2, VENOUS 25 22 - 30 mmol/L 08/15/2024 12:21 PM T [facility] ANION GAP 11.0 <18.0 mmol/L 08/15/2024 12:21 PM T [facility] GLUCOSE 87 70 - 99 mg/dL 08/15/2024 12:21 PM T [facility] BUN 24(H) 5 - 18 mg/dL 08/15/2024 12:21 PM T [facility] CREATININE, BLOOD 0.91 0.60 - 1.00 mg/dL 08/15/2024 12:21 PM T [facility] BUN/CREATININE RATIO 26(H) 12 - 20 ratio 08/15/2024 12:21 PM CDT [facility] TOTAL PROTEIN 6.2(L) 6.3 - 8.2 g/dL 08/15/2024 12:21 PM T [facility] ALBUMIN 3.7 3.5 - 5.0 g/dL 08/15/2024 12:21 PM CDT [facility] A/G RATIO 1.5 1.0 - 2.2 08/15/2024 12:21 PM T [facility] CALCIUM 8.8 8.7 - 10.5 mg/dL 08/15/2024 12:21 PM CDT [facility] T BILI 0.9 0.2 - 1.2 mg/dL 08/15/2024 12:21 PM T [facility] SGOT (AST) 21 5 - 34 U/L 08/15/2024 12:21 PM CDT [facility] SGPT (ALT) 69(H) 0 - 55 U/L 08/15/2024 12:21 PM CDT [facility] ALKALINE PHOSPHATASE 65 40 - 150 U/L 08/15/2024 12:21 PM CDT [facility] IS THE PATIENT REQUIRED TO BE FASTING? No 08/15/2024 12:21 PM CDT [facility] GFR, ESTIMATED >60 >=60 08/15/2024 12:21 PM CDT [facility] Comment: Creatinine Clearance is the preferred criteria for selecting drug dose adjustments in renally impaired patients. ??The GFR is provided as additional pertinent clinical information. GFR is reported in mL/min/1.73 sq m. Calculation based on the Chronic Kidney Disease Epidemiology Collaboration (CKD- EPI) equation refit without adjustment for race. GFR, EST. >60 >=60 024 12:21 PM CDT [facility] GFR, EST. NONAFRICAN >60 >=60 08/15/2024 12:21 PM CDT [facility] Blood Sub-Q Port Venou s Access Device (Medi-Port, Implanted Port) / Unknown 08/15/2024 11:35 AM CDT 08/15/2024 11:35 AM CDT Markus Finley MD CHEMISTRY ORDERABLES Fin al Result [facility] [address] [place] [address] documented in this encounter Visit Diagnoses Diagnosis Metastatic melanoma (HCC) Melanoma of skin, site unspecified documented in this encounter Administered Medications Inactive Administered Medications - up to 3 most recent administrations Medication Order MAR Action Action Date Dose Rate Site 0.9 % sodium chloride solution at 999 mL/hr, Intravenous, ONCE, 1 dose, On Tue08/15/24 at 1200, hydrationIndications:Metast atic melanoma (HCC) New Bag 08/15/2024 11:40 AM CDT 999 mL/hr Heparin Na (Pork) Lock Flsh PF SOLN 30 Units 30 Units, Intravenous, ONCE, 1 dose, On Tue08/15/24 at 1230Indications:Metastatic melanoma (HCC) Given 08/15/2024 2:05 PM CDT 30 Units documented in this encounter Care Teams Erp Manager Relationship Specialty Start Date End Date Pritesh Chu MD [address] [address] PCP - General Family Medicine 04/18/24 Markus Finley MD [address] [place] [address] Consulting Physician Medical Oncology 04/18/24 documented as of this encounter
--- OUTSIDE RECORDS SUMMARY | 2024-10-26 08:03 | XMS_ITS | Encounter Summary ---
Author Organization [facility] Address [address] [place] [address] Phone Care Team Providers Care Burial Vault Setter Name Role Phone Pritesh Chu MD Primary Care Provider [phone] Markus Finley MD Unavailable [phone] Reason for Visit * Episode Based Medications (Routine) - Closed Specialty Diagnoses / Procedures Referred By Contross t Referred To Contact Diagnoses Metastatic melanoma (HCC) Markus Finley MD [address] [place] [address] Phone: tel: fax: [facility] Oncology Services [address] [place] [address] Phone: tel: fax: Referral ID Status Reason Start Date Expiration Date Visits Re quested Visits Authorized [id number] Closed 04/19/2024 1 30 Encounter Details Date Type Department Care Team (Late st Contact Info) Description 08/08/2024 11:30 AM CDT Clinical Support [facility] Oncology Services [address] [place] [address] Markus Finley MD [address] [place] [address] Metastatic melanoma (HCC) Discharge Disposition: Discharged to home or Selfcare Social History Tobacco Use Types Packs/Day Years Used Date Smoking Tobacco: Former Cigarettes 0.5 8.5 S tarted: 04/18/2016 Smokeless Tobacco: Never Alcohol Use Standard Drinks/Week Comments Yes 0 (1 standard drink = 0.6 oz pur e alcohol) [facility] Utilities Answer Date Recorded In the [...] How often do you attend catholic or sabianist serv ices? Patient declined 08/01/2024 [...] medical care, and heating? Patient declined 08/01/2024 [facility] of Occupat ional Health - Occupational Stress [...] Sign Reading Time Taken Comments Blood Pressure 137/82 08/08/2024 11:40 AM CDT Pulse 79 08/08/2024 11:40 AM CDT Temperature 36.7 ??C (98 ??F) 08/08/2024 11:40 AM CDT Respiratory Rate 16 08/08/2024 11:40 AM CDT Oxygen Saturation 99% 08/08/2024 11:40 AM CDT Inhaled Oxygen Concentration - - Weight - - Height - - Body Mass Index - - documented in this encounter Miscellaneous Notes * Interdisciplinary - Carmina Porras RN - 08/08/2024 11:30 AM CDT Pt ambulated back to treatment chair. Vitals obtained. Discussed plan of care for the day and educated on labs and fluids needed. Port accessed, good blood return, lab drawn, flushed easily. Pt tolerated fluids well, no complaints or reactions noted. Reviewed lab results. Port deaccessed per policy, needle removed, bandaid placed. Pt ambulated out of treatment room in stable condition. * Interdisciplinary - Carmina Porras RN - 08/08/2024 11:30 AM CDT Spoke with Dr. Finley regarding pt feeling better. Per Dr. Finley pt to decrease evening Prednisonedose to 50mg. Educated pt to take 100 mg in the AM and 50mg in evening. Pt verbalized understanding documented in this encounter Plan of Treatment Upcoming Encounters Date Type Department Care Team (Late st Contact Info) Description 11/15/2024 1:00 PM AUTOMATIC VULCANIZING LEAD OPERATOR Lab [facility] [address] [place] [address] Markus Finley MD [address] [place] [address] 11/15/2024 2:00 PM AUTOMATIC VULCANIZING LEAD OPERATOR [facility]ointment [facility] [address] [place] [address] Markus Finley MD [address] [place] [address] Discharge Disposition: Discharged to home or Selfcare documented as of this encounter Procedures Procedure Name Priority Date/Time Associated Diagnosis Comments CMP (COMPREHENSIVE METABOLIC PANEL) STAT 08/08/2024 12:00 PM CDT Metastatic melanoma (HCC) documented in this encounter Results * (ABNORMAL) CMP (COMPREHENSIVE METABOLIC PANEL) (08/08/2024 12:00 PM CDT) SODIUM 133(L) 136 - 145 mmol/L 08/08/2024 12:[address] [facility] POTASSIUM 3.6 3.5 - 5.1 mmol/L 08/08/2024 12:[address] [facility] CHLORIDE 108(H) 98 - 107 mmol/L 08/08/2024 12:[address] [facility] CO2, VENOUS 20(L) 22 - 30 mmol/L 08/08/2024 12:[address] [facility] ANION GAP 8.6 <18.0 mmol/L 08/08/2024 12:[address] [facility] GLUCOSE 143(H) 70 - 99 mg/dL 08/08/2024 12:[address] [facility] BUN 12 5 - 18 mg/dL 08/08/2024 12:[address] [facility] CREATININE, BLOOD 1.00 0.60 - 1.00 mg/dL 08/08/2024 12:[address] [facility] BUN/CREATININE RATIO 12 12 - 20 ratio 08/08/2024 12:[address] [facility] TOTAL PROTEIN 6.0(L) 6.3 - 8.2 g/dL 08/08/2024 12:[address] [facility] ALBUMIN 3.4(L) 3.5 - 5.0 g/dL 08/08/2024 12:[address] [facility] A/G RATIO 1.3 1.0 - 2.2 08/08/2024 12:[address] [facility] CALCIUM 8.8 8.7 - 10.5 mg/dL 08/08/2024 12:[address] [facility] T BILI 0.5 0.2 - 1.2 mg/dL 08/08/2024 12:[address] [facility] SGOT (AST) 15 5 - 34 U/L 08/08/2024 12:[address] [facility] SGPT (ALT) 58(H) 0 - 55 U/L 08/08/2024 12:[address] [facility] ALKALINE PHOSPHATASE 71 40 - 150 U/L 08/08/2024 12:[address] [facility] IS THE PATIENT REQUIRED TO BE FASTING? No 08/08/2024 12:[address] [facility] GFR, ESTIMATED >60 >=60 08/08/2024 12:40 PM CDT [facility] Comment: Creatinine Clearance is the preferred criteria for selecting drug dose adjustments in renally impaired patients. ??The GFR is provided as additional pertinent clinical information. GFR is reported in mL/min/1.73 sq m. Calculation based on the Chronic Kidney Disease Epidemiology Collaboration (CKD- EPI) equation refit without adjustment for race. GFR, EST. >60 >=60 024 12:[address] [facility] GFR, EST. NONAFRICAN >60 >=60 08/08/2024 12:40 PM CDT [facility] Blood Sub-Q Port Venou s Access Device (Medi-Port, Implanted Port) / Unknown 08/08/2024 12:00 PM CDT 08/08/2024 12:00 PM CDT us Markus Finley MD CHEMISTRY ORDERABLES Fin al Result [facility] [address] [place] [address] documented in this encounter Visit Diagnoses Diagnosis Metastatic melanoma (HCC) Melanoma of skin, site unspecified documented in this encounter Administered Medications Inactive Administered Medications - up to 3 most recent administrations Medication Order MAR Action Action Date Dose Rate Site 0.9 % sodium chloride solution at 999 mL/hr, Intravenous, ONCE, 1 dose, On Tue08/08/24 at 1200Indications:Metastatic melanoma (HCC) New Bag 08/08/2024 11:51 AM CDT 1,000 mL 999 mL/hr documented in this encounter Care Teams Burial Vault Setter Relationship Specialty Start Date End Date Pritesh Chu MD [address] [address] PCP - General Family Medicine 04/18/24 Markus Finley MD [address] [place] [address] Consulting Physician Medical Oncology 04/18/24 documented as of this encounter
--- OUTSIDE RECORDS SUMMARY | 2024-10-26 08:03 | XMS_ITS | Encounter Summary ---
Author Organization [facility] Address [address] [place] [address] Phone Care Team Providers Care Guest Service Host Name Role Phone Pritesh Chu MD Primary Care Provider [phone] Markus Finley MD Unavailable [phone] Reason for Visit * Reason Onset Date Comments Follow-up 08/06/2024 Encounter Details Date Type Department Care Team (Late st Contact Info) Description 08/06/2024 Post Discharge Follow[facility]up [facility] [address] [place] [address] Arline Rojo, RN [place] Social History Tobacco Use Types Packs/Day Years Used Date Smoking Tobacco: Former Cigarettes 0.5 8.5 S tarted: 04/18/2016 Smokeless Tobacco: Never Alcohol Use Standard Drinks/Week Comments Yes 0 (1 standard drink = 0.6 oz pur e alcohol) [facility] Utilities Answer Date [...] How often do you attend buddhist or yarsanism serv ices? Patient declined 08/01/2024 [...] medical care, and heating? Patient declined 08/01/2024 [facility] Occupat ional [facility] - Occupational Stress Questionnaire Answer [...] Telephone Encounter - Arline Rojo RN - 08/06/2024 3:31 PM CDT Attempted to follow up with patient after recent discharge from our facility. Voicemail left with instructions to callback with any questions or concerns. documented in this encounter Plan of Treatment Upcoming Encounters Date Type Department Care Team (Late st Contact Info) Description 11/15/2024 1:00 PM HOME CONNECT LPN [facility] [address] [place] [address] Markus Finley MD [address] [place] [address] 11/15/2024 2:00 PM HOME CONNECT LPN [facility]ointment [facility] [address] [place] [address] Markus Finley MD [address] [place] [address] Discharge Disposition: Discharged to home or Selfcare documented as of this encounter Visit Diagnoses Not on filedocumented in this encounter Care Teams Guest Service Host Relationship Specialty Start Date End Date Pritesh Chu MD [address] [place] [address] PCP - General Family Medicine 04/18/24 Markus Finley MD [address] [place] [address] Consulting Physician Medical Oncology 04/18/24 documented as of this encounter
--- OUTSIDE RECORDS SUMMARY | 2024-10-26 08:03 | XMS_ITS | Encounter Summary ---
Author Organization [facility] Address [address] [facility] [place] [address] Phone Care Team Providers Care Sole Layer Hand Name Role Phone Pritesh Chu MD Primary Care Provider [phone] Markus Finley MD Unavailable [phone] Encounter Details Date Type Department Care Team (Late st Contact Info) Description 08/16/2024 Telephone [facility] Oncology Services [address] [place] [id number] Markus Finley MD [address] [place] [address] Social History Tobacco Use Types Packs/Day Years Used Date Smoking Tobacco: Former Cigarettes 0.5 8.5 S tarted: 04/18/2016 Smokeless Tobacco: Never Alcohol Use Standard Drinks/Week Comments Yes 0 (1 standard drink = 0.6 oz pur e alcohol) [facility] Utilities Answer Date Recorded In the [...] declined 08/01/2024 How often do you attend mosque or zoroastrianism serv ices? Patient declined 08/01/2024 Do you belong to any clubs o r organizations such as mosque groups, unions, fraternal or athletic groups, or [...] medical care, and heating? Patient declined 08/01/2024 [facility] of Occupat ional Health - Occupational Stress [...] were you homeless or living in a correction (including now)? Patient declined 08/01/2024 Comments No Sex and Gender Information Value Date Recorded Sex Assigned at Female 06/20/2024 8:39 AM CDT Legal Sex Female 9:04 AM CDT Gender Identity Female 06/20/2024 8:39 AM CDT Sexual Orientation Bisexual 06/20/2024 8: 39 AM CDT documented as of this encounter Miscellaneous Notes * Telephone Encounter - Marie Barclay RN - 08/16/2024 9:04 AM CDT Patient called asking about potassium she states Dr Finley had directed her to take Potasium 20meq 3 tabs BID but new packet prescription was only 2 20meq packets BID. Directed patient to follow Dr Finley direction and we will recheck lab on Tuesday to evaluate dose. Patient verbalized understanding all instructions provided and will call office with any additionalconcerns or questions. documented in this encounter Plan of Treatment Upcoming Encounters Date Type Department Care Team (Late st Contact Info) Description 11/15/2024 1:00 PM TIRE SHOP MECHANIC Lab [facility] Laboratory Services [address] [place] [address] Markus Finley MD [address] [place] [address] 11/15/2024 2:00 PM TIRE SHOP MECHANIC Appointment [facility] MRI [address] [place] [address] Markus Finley MD [address] [place] [address] Discharge Disposition: Discharged to home or Selfcare documented as of this encounter Visit Diagnoses Not on filedocumented in this encounter Care Teams Sole Layer Hand Relationship Specialty Start Date End Date Pritesh Chu MD [address] [address] PCP - General Family Medicine 04/18/24 Markus Finley MD [address] [place] [address] Consulting Physician Medical Oncology 04/18/24 documented as of this encounter
--- OUTSIDE RECORDS SUMMARY | 2024-10-26 08:04 | XMS_ITS | Encounter Summary ---
Author Organization [employer] Care Team Providers Care Slat Basket Maker Helper Name Role Phone Pritesh Chu MD Primary Care Provider [phone] Markus Finley MD Unavailable [phone] Encounter Details Date Type Department Care Team (Latest Contact Info) Description 07/06/2024 Travel Social History Tobacco Use Types Packs/Day Years Used Date Smoking Tobacco: Former Cigarettes 0.5 8.5 S tarted: 04/18/2016 Smokeless Tobacco: Never Alcohol Use Standard Drinks/Week Comments Yes 0 (1 standard drink = 0.6 oz pur e alcohol) [facility] Utilities Answer Date Recorded In the past 12 months has [employer], gas, oil, or water [employer] threatened to shut off services in your home? No 06/27/2024 Social Connection and Isolat ion Panel [NHANES] Answer Date Recorded In a typical week, how many times do you talk on the phone with family, friends, or neighbors? More than three times a week 06/27/2024 How often do you get togethe r with friends or relatives? More than three times a week 06/27/2024 How often do you attend chur ch or advent services? Never 06/27/2024 Do you belong to any clubs o r organizations such as islam groups, unions, fraternal or athletic groups, or school groups? No 06/27/2024 How often do you attend meet ings of the clubs or organizations you belong to? Never 06/27/2024 Are you , , di vorced, , never , or living with a partner? Never 06/27/2024 AUDIT-C Answer Date Recorded Q1: How often do you have a drink containing alcohol? Never 06/27/2024 Q2: How many drinks containi ng alcohol do you have on a typical day when you are drinking? Patient does not drink Q3: How often do you have si x or more drinks on one occasion? Never 06/27/2024 Overall Financial Resource Strain (CARDIA) Answe r Date Recorded How hard is it for you to pa y for the very basics like food, housing, medical care, and heating? Not hard at all 06/27/2024 [facility] [place] Occupat ional Health - Occupational Stress Questionnaire Answer Date Recorded Do you feel stress - tense, restless, nervous, or anxious, or unable to sleep at night because your mind is troubled all the time - these days? To some extent 06/27/2024 Exercise Vital Sign Answer Date Recorde d On average, how many days pe r week do you engage in moderate to strenuous exercise (like a brisk walk)? 5 days 06/27/2024 On average, how many minutes do you engage in exercise at this level? 90 min 06/27/2024 Hunger Vital Sign Answer Date Recorded Within the past 12 months, y ou worried that your food would run out before you got the money to buy more. Never true 06/27/20 24 Within the past 12 months, t he food you bought just didn't last and you didn't have money to get more. Never true 06/27/2024 PRAPARE - Transportation Answer Date Re corded In the past 12 months, has l ack of transportation kept you from medical appointments or from getting medications? No 06/08 In the past 12 months, has l ack of transportation kept you from meetings, work, or from getting things needed for daily living? No 06/27/2024 Housing Stability Vital Sign Answer Shahid e Recorded In the last 12 months, was t here a time when you were not able to pay the mortgage or rent on time? No 06/27/2024 In the past 12 months, how m any times have you moved where you were living? 1 06/27/2024 At any time in the [facility] were you homeless or living in a usp (including now)? No 06/27/2024 Comments No Sex and Gender Information Value Date Recorded Sex Assigned at Female 06/20/2024 8:39 AM CDT Legal Sex Female 9:04 AM CDT Gender Identity Female 06/20/2024 8:39 AM CDT Sexual Orientation Bisexual 06/20/2024 8: 39 AM CDT documented as of this encounter Plan of Treatment Upcoming Encounters Date Type Department Care Team (Late st Contact Info) Description 11/15/2024 1:00 PM BRUSH HEAD MAKER Lab [facility] [address] [place] [address] Markus Finley MD [address] [place] [address] 11/15/2024 2:00 PM BRUSH HEAD MAKER [facility]ment [facility] [address] [place] [address] Markus Finley MD [address] [place] [address] Discharge Disposition: Discharged to home or Selfcare documented as of this encounter Visit Diagnoses Not on filedocumented in this encounter Care Teams Slat Basket Maker Helper Relationship Specialty Start Date End Date Pritesh Chu MD [address] [place] [address] PCP - General Family Medicine 04/18/24 Markus Finley MD [address] [place] [address] Consulting Physician Medical Oncology 04/18/24 documented as of this encounter
--- OUTSIDE RECORDS SUMMARY | 2024-10-26 08:04 | XMS_ITS | Encounter Summary ---
Author Organization [facility] Address [address] [place] [address] Phone Care Team Providers Care Aircraft Pilot Name Role Phone Pritesh Chu MD Primary Care Provider [phone] Markus iFnley MD Unavailable [phone] Encounter Details Date Type Department Care Team (Late st Contact Info) Description 05/24/2024 Telephone [facility] Oncology Services [address] [place] [id number] Markus Finley MD [address] [place] [address] Social History Tobacco Use Types Packs/Day Years Used Date Smoking Tobacco: Former Cigarettes 0.5 8.5 S tarted: 04/18/2016 Smokeless Tobacco: Never Alcohol Use Standard Drinks/Week Comments Yes 0 (1 standard drink = 0.6 oz pur e alcohol) Comments No Sex and Gender Information Value Date Recorded Sex Assigned at Female 06/20/2024 8:39 AM CDT Legal Sex Female 9:04 AM CDT Gender Identity Female 06/20/2024 8:39 AM CDT Sexual Orientation Bisexual 06/20/2024 8: 39 AM CDT documented as of this encounter Miscellaneous Notes * Telephone Encounter - Elías Petty RN - 05/24/2024 11:35 AM CDT LVM to follow up on chemo. documented in this encounter Plan of Treatment Upcoming Encounters Date Type Department Care Team (Late st Contact Info) Description 11/15/2024 1:00 PM ORIENTATION & MOBILITY SPECIALIST Lab [facility] Laboratory Services [address] [place] [address] Markus Finley MD [address] [place] [address] 11/15/2024 2:00 PM ORIENTATION & MOBILITY SPECIALIST Appointment [facility] MRI [address] [place] [address] Markus Finley MD [address] [place] [address] Discharge Disposition: Discharged to home or Selfcare documented as of this encounter Visit Diagnoses Not on filedocumented in this encounter Care Teams Aircraft Pilot Relationship Specialty Start Date End Date rPitesh Chu MD [address] [place] [address] PCP - General Family Medicine 04/18/24 Markus Finley MD [address] [place] [address] Consulting Physician Medical Oncology 04/18/24 documented as of this encounter
--- OUTSIDE RECORDS SUMMARY | 2024-10-26 08:04 | XMS_ITS | Encounter Summary ---
Author Organization [facility] Address [address] [place] [address] Phone Care Team Providers Care Toppiece Cutter Name Role Phone Pritesh Chu MD Primary Care Provider [phone] Markus Finley MD Unavailable [phone] Encounter Details Date Type Department Care Team (Late st Contact Info) Description 06/25/2024 Refill [facility] Oncology Services [address] [place] [phone] Markus Finley MD [address] [place] [address] Social History Tobacco Use Types Packs/Day Years Used Date Smoking Tobacco: Former Cigarettes 0.5 8.5 S tarted: 04/18/2016 Smokeless Tobacco: Never Alcohol Use Standard Drinks/Week Comments Yes 0 (1 standard drink = 0.6 oz pur e alcohol) [facility] Utilities Answer Date Recorded In the [...] often do you attend chur ch or pentecostal services? Never 06/27/2024 Do you belong to [...] and heating? Not hard at all 06/27/2024 [facility] [place] of Occupat ional Health - Occupational Stress [...] or living in a longterm (including now)? No 06/27/2024 Comments No Sex and Gender Information Value Date Recorded Sex Assigned at Female 06/20/2024 8:39 AM CDT Legal Sex Female 9:04 AM CDT Gender Identity Female 06/20/2024 8:39 AM CDT Sexual Orientation Bisexual 06/20/2024 8: 39 AM CDT documented as of this encounter Miscellaneous Notes * Telephone Encounter - Liliana Finney RN - 06/25/2024 4:16 PM CDT Excuse letter written for patient for work for today's date only. * Telephone Encounter - Tatum Ortega RN - 06/25/2024 3:51 PM CDT Pt called with complaints of having a fever this am of 101 that went away without medications. Pt also states that she has vomited once today and has diarrhea every day that does not improve with theuse of Imodium. MD made aware and prescription put in. Pt made aware and states understanding about calling if symptoms persist or get worse. documented in this encounter Plan of Treatment Upcoming Encounters Date Type Department Care Team (Late st Contact Info) Description 11/15/2024 1:00 PM EDUCATION OFFICER Lab [facility] Laboratory Services [address] [facility] [place] [address] Markus Finley MD [address] [place] [address] 11/15/2024 2:00 PM EDUCATION OFFICER Appointment [facility] MRI [address] [facility] [place] [address] Markus Finley MD [address] [place] [address] Discharge Disposition: Discharged to home or Selfcare documented as of this encounter Visit Diagnoses Diagnosis Diarrhea due to drug- Primary Diarrhea documented in this encounter Care Teams Toppiece Cutter Relationship Specialty Start Date End Date Pritesh Chu MD [address] [place] [address] PCP - General Family Medicine 04/18/24 Markus Finley MD [address] [place] [address] Consulting Physician Medical Oncology 04/18/24 documented as of this encounter
--- OUTSIDE RECORDS SUMMARY | 2024-10-26 08:04 | XMS_ITS | Encounter Summary ---
Author Organization [facility] Address [address] [facility] [place] [address] Phone Care Team Providers Care Software Development Leader Name Role Phone Pritesh Chu MD Primary Care Provider [phone] Markus Finley MD Unavailable [phone] Encounter Details Date Type Department Care Team (Late st Contact Info) Description 07/04/2024 10:30 AM CDT Clinical Support [facility] Oncology Services [address] [place] [phone] Markus Finley MD [address] [place] [address] Metastatic melanoma (HCC) Discharge Disposition: Discharged to home or Selfcare Social History Tobacco Use Types Packs/Day Years Used Date Smoking Tobacco: Former Cigarettes 0.5 8.5 S tarted: 04/18/2016 Smokeless Tobacco: Never Alcohol Use Standard Drinks/Week Comments Yes 0 (1 standard drink = 0.6 oz pur e alcohol) [facility] Utilities Answer Date Recorded In the past 12 months has [employer], gas, oil, or water [employer] threatened to shut off services in your [...] often do you attend chur ch or baptist services? Never 06/27/2024 Do you belong to any clubs o r organizations such as sabianism groups, unions, fraternal or athletic groups, or [...] and heating? Not hard at all 06/27/2024 [facility] of Occupat ional Health - [...] living in a care home (including now)? No 06/27/2024 Comments No Sex and Gender Information Value Date Recorded Sex Assigned at Female 06/20/2024 8:39 AM CDT Legal Sex Female 9:04 AM CDT Gender Identity Female 06/20/2024 8:39 AM CDT Sexual Orientation Bisexual 06/20/2024 8: 39 AM CDT documented as of this encounter Last Filed Vital Signs Vital Sign Reading Time Taken Comments Blood Pressure 133/86 07/04/2024 10:45 AM CDT Pulse 114 07/04/2024 10:45 AM CDT Temperature 35.8 ??C (96.4 ??F) 07/04/2024 10:45 AM C DT Respiratory Rate 18 07/04/2024 10:45 AM CDT Oxygen Saturation 98% 07/04/2024 10:45 AM CDT Inhaled Oxygen Concentration - - Weight - - Height - - Body Mass Index - - documented in this encounter Miscellaneous Notes * Interdisciplinary - Milana, Sister Mary Almaguer, KRISTAL - 07/04/2024 10:30 AM CDT Patient arrived and VS obtained. Port accessed per protocol x1 attempt. 1 inch needle used. Flushedeasily with good blood return. CMP obtained. K+ 2.7, Na+ 128, BUN 11, Creatinine 1.00. Results reviewed with MD. 1L NS, 20mEq KCL IVPB, and 40mEq potassium given orally. Patient began the 80mg of prednisone this morning. 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 Patient to take 20mEq tonight and then take it twice daily starting tomorrow. Labs to be rechecked tomorrow. Port flushed with heparin and needle removed. Bandaid applied to site. Patient left treatment area in stable condition. documented in this encounter Plan of Treatment Upcoming Encounters Date Type Department Care Team (Late st Contact Info) Description 11/15/2024 1:00 PM GROUNDS KEEPER Lab [facility] [address] [place] [address] Markus Finley MD [address] [place] [address] 11/15/2024 2:00 PM GROUNDS KEEPER [facility]ointment [facility] [address] [place] [address] Markus Finley MD [address] [place], [place] [id number] Discharge Disposition: Discharged to home or Selfcare documented as of this encounter Procedures Procedure Name Priority Date/Time Associated Diagnosis Comments CMP (COMPREHENSIVE METABOLIC PANEL) STAT 07/04/2024 10:53 AM CDT Metastatic melanoma (HCC) documented in this encounter Results * (ABNORMAL) CMP (COMPREHENSIVE METABOLIC PANEL) (07/04/2024 10:53 AM CDT) SODIUM 128(L) 136 - 145 mmol/L 07/04/2024 11:41 AM CDT [facility] POTASSIUM 2.7(LL) 3.5 - 5.1 mmol/L 07/04/2024 11:41 AM CDT [facility] CHLORIDE 102 98 - 107 mmol/L 07/04/2024 11:41 AM CDT [facility] CO2, VENOUS 17(L) 22 - 30 mmol/L 07/04/2024 11:41 AM T [facility] ANION GAP 11.7 <18.0 mmol/L 07/04/2024 11:41 AM T [facility] GLUCOSE 150(H) 70 - 99 mg/dL 07/04/2024 11:41 AM CDT [facility] BUN 11 5 - 18 mg/dL 07/04/2024 11:41 AM CDT [facility] CREATININE, BLOOD 1.00 0.60 - 1.00 mg/dL 07/04/2024 11:41 AM T [facility] BUN/CREATININE RATIO 11(L) 12 - 20 ratio 07/04/2024 11:41 AM T [facility] TOTAL PROTEIN 6.5 6.3 - 8.2 g/dL 07/04/2024 11:41 AM T [facility] ALBUMIN 3.6 3.5 - 5.0 g/dL 07/04/2024 11:41 AM T [facility] A/G RATIO 1.2 1.0 - 2.2 07/04/2024 11:41 AM T [facility] CALCIUM 8.8 8.7 - 10.5 mg/dL 07/04/2024 11:[address] [facility] T BILI 0.7 0.2 - 1.2 mg/dL 07/04/2024 11:41 AM T [facility] SGOT (AST) 19 5 - 34 U/L 07/04/2024 11:41 AM T [facility] SGPT (ALT) 50 0 - 55 U/L 07/04/2024 11:41 AM T [facility] ALKALINE PHOSPHATASE 67 40 - 150 U/L 07/04/2024 11:41 AM T [facility] IS THE PATIENT REQUIRED TO BE FASTING? No 07/04/2024 11:41 AM CDT [facility] GFR, ESTIMATED >60 >=60 07/04/2024 11:41 AM CDT [facility] Comment: Creatinine Clearance is the preferred criteria for selecting drug dose adjustments in renally impaired patients. ??The GFR is provided as additional pertinent clinical information. GFR is reported in mL/min/1.73 sq m. Calculation based on the Chronic Kidney Disease Epidemiology Collaboration (CKD- EPI) equation refit without adjustment for race. GFR, EST. >60 >=60 024 11:41 AM CDT [facility] GFR, EST. NONAFRICAN >60 >=60 07/04/2024 11:41 AM CDT [facility] Blood Sub-Q Port Venou s Access Device (Medi-Port, Implanted Port) / Unknown 07/04/2024 10:53 AM CDT 07/04/2024 10:54 AM CDT Markus Luana Finley MD CHEMISTRY ORDERABLES Fin al Result [facility] [address] [place] [address] documented in this encounter Visit Diagnoses Diagnosis Metastatic melanoma (HCC) Melanoma of skin, site unspecified documented in this encounter Administered Medications Inactive Administered Medications - up to 3 most recent administrations Medication Order MAR Action Action Date Dose Rate Site 0.9 % sodium chloride solution at 999 mL/hr, Intravenous, ONCE, 1 dose, On Tue07/04/24 at 1200Indications:Metastatic melanoma (HCC) New Bag 07/04/2024 10:55 AM CDT 1,000 mL 999 mL/hr Heparin Na (Pork) Lock Flsh PF SOLN 50 Units 50 Units, Intravenous, PRN, Starting on Tue07/04/24 at 1202, Until Tue07/04/24 at 1625, Line CareIndications:Metastatic melanoma (HCC) Given 07/04/2024 2:15 PM CDT 50 Units potassium chloride IVPB 20 mEq 100 mL 20 mEq, Intravenous, ONCE, 1 dose, On Tue07/04/24 at 1230, Administer over 2 HoursIndications:Metastatic melanoma (HCC) New Bag 07/04/2024 12:07 PM CDT 20 mEq potassium chloride SA (KLORCON M) tablet 40 mEq 40 mEq, Oral, ONCE, 1 dose, On Tue07/04/24 at 1230, Do Not CrushIndications:Metastatic melanoma (HCC) Given 07/04/2024 12:07 PM CDT 40 mEq documented in this encounter Care Teams Software Development Leader Relationship Specialty Start Date End Date Pritesh Chu MD [address] [address] PCP - General Family Medicine 04/18/24 Markus Finley MD [address] [place] [address] Consulting Physician Medical Oncology 04/18/24 documented as of this encounter
--- OUTSIDE RECORDS SUMMARY | 2024-10-26 08:04 | XMS_ITS | Encounter Summary ---
Author Organization [facility] Address [address] [place] [address] Phone Care Team Providers Care Executive Team Leader Name Role Phone Pritesh Chu MD Primary Care Provider [phone] Markus Finley MD Unavailable [phone] Reason for Visit * Reason Comments Follow-up Encounter Details Date Type Department Care Team (Late st Contact Info) Description 07/03/2024 9:00 AM CDT [facility] [address] [place] [phone] Markus Finley MD [address] [place] [address] Metastatic melanoma (HCC) (Primary Dx); Functional diarrhea; Hypotension due to drugs; Diarrhea due to drug; Immunotherapy; Dizziness Discharge Disposition: Discharged to home or Selfcare Social History Tobacco Use Types Packs/Day Years Used Date Smoking Tobacco: Former Cigarettes 0.5 8.5 S tarted: 04/18/2016 Smokeless Tobacco: Never Tobacco Cessation:Counseling Given: Not Answered Alcohol Use Standard Drinks/Week Comments Yes 0 (1 standard drink = 0.6 oz pur e alcohol) [facility] Utilities Answer Date Recorded In the [...] often do you attend chur ch or muslim services? Never 06/27/2024 Do you belong to any clubs o r organizations such as zoroastrianism groups, unions, fraternal or athletic groups, or [...] and heating? Not hard at all 06/27/2024 [facility] - [...] any time in the past 12 m [facility], were you homeless or living in a nursing home (including now)? No 06/27/2024 Comments No Sex and Gender Information Value Date Recorded Sex Assigned at Female 06/20/2024 8:39 AM CDT Legal Sex Female 9:04 AM CDT Gender Identity Female 06/20/2024 8:39 AM CDT Sexual Orientation Bisexual 06/20/2024 8: 39 AM CDT documented as of this encounter Last Filed Vital Signs Vital Sign Reading Time Taken Comments Blood Pressure 116/82 07/03/2024 9:31 AM CDT Pulse 131 07/03/2024 9:31 AM CDT Temperature 36 ??C (96.8 ??F) 07/03/2024 9:31 AM CDT Respiratory Rate 20 07/03/2024 9:31 AM CDT Oxygen Saturation 97% 07/03/2024 9:31 AM CDT Inhaled Oxygen Concentration - - Weight 116.1 kg (256 lb) 07/03/2024 9:31 AM CDT Height 167.6 cm (5' 6 ) 07/03/2024 9:31 AM CDT Body Mass Index 41.32 07/03/2024 9:31 AM CDT documented in this encounter Progress Notes * Seble Artis - 07/03/2024 9:00 AM CDT Outpatient Hem/Onc Progress Note PROGRESS NOTE Dayanara Hilton is a 24 y.o. female seen today for follow up of metastatic melanoma. Patient requests to be called Chris. Chris is currently on treatment with Opdivo 3 mg/kg plus Yervoy 1 mg/kg every28 days, started on 05/01/24. She was recently admitted to [facility] for fever with associated nausea with vomiting and diarrhea. Sepsis protocol was activated and patient was started on cefepime and vancomycin at the outside hospital prior to transfer. She was given IV steroids in conjunction for treatment mediated symptoms. Blood cultures negative x2. She was hypokalemic at 3.1, treated with Klorcon 40 MEQ. She was discharged home on 06/30/24. Prior to this hospital admission patient received treatment on 06/12/24. Upon entering the exam room patient is laying on the exam table due to weakness and dizziness. Patient reports dizziness with postural changes or when standing for long period of time. She reports dizziness started on discharge from hospital. Chris reports her diarrhea has improved since discharge from hospital. Patient reports experiencing 5-6 bowel movements yesterday. Chris reports currently taking Prednisone 5 mg taper, starting at 6 tabs 07/01/24. She reports progressive muscle weakness that has significantly worsened over the last few days. Patient reports nausea only occurring with strong odors. She denies taking Omeprazole for acid symptoms after discharge. Patient deniesdischarge on K+ supplement. Chris reports currently only eating Jello since discharge from hospital.Patient complains of mild stomach pains today, rating 2-3/10. She reports stomach pain severity waxes and wanes. ECOG PERFORMANCE STATUS: DIAGNOSIS/TREATMENT HISTORY: Metastatic melanoma She reports it [...] with increased activity, consistent with metastatic disease. --05/01/24 patient started Opdivo 3 mg/kg plus Yervoy 1 mg/kg every 28 days --07/03/24 Hold C3D1 due to suspected immunotherapy mediated side effects;diarrhea with associated hypokalemia, abdominal pain, and muscle weakness Reviewed patients past medical, surgical, social, and family history. No outpatient medications have been marked as taking for the 07/03/24 encounter (Appointment) with Markus Finley MD. Allergies as of 07/03/2024 (No Known Allergies) REVIEW OF SYSTEMS Review of Systems Constitutional: Positive for malaise/fatigue and weight loss. Gastrointestinal: Positive for abdominal pain, diarrhea, heartburn and nausea. Neurological: Positive for dizziness, weakness and headaches. Physical Exam Physical Exam PAIN ASSESSMENT: Chris complains of abdominal pain that waxes and wanes. DATA: Lab Results Component Value Date WBC 10.07 06/30/2024 RBC 5.49 (H) 06/30/2024 HEMOGLOBIN 16.2 (H) 06/30/2024 HEMATOCRIT 47.1 (H) 06/30/2024 MCV 85.8 06/30/2024 MCH 29.5 06/30/2024 MCHC 34.4 06/30/2024 PLATELETCNT 307 06/30/2024 RDW 12.9 06/30/2024 LYMPHOCYTES 29.2 04/18/2024 RELEOS 1.3 04/18/2024 RELBAS 0.6 04/18/2024 ANC 5.28 04/18/2024 MONOCYTES 0.51 04/18/2024 EOSINOPHILS 0.11 04/18/2024 BASOPHILS 0.05 04/18/2024 Lab Results Component Value Date SODIUM 137 06/30/2024 POTASSIUM 3.6 06/30/2024 CHLORIDE 110 (H) 06/30/2024 ANIONGAP 15.6 06/30/2024 GLUCOSE 82 06/30/2024 BUN 7 06/30/2024 CREATININE 0.87 06/30/2024 TOTALPROTEIN 6.0 (L) 06/27/2024 ALBUMIN 3.3 (L) 06/27/2024 CALCIUM 9.6 06/30/2024 SGPTALT 39 06/27/2024 ALKALINEPHO 57 06/27/2024 02/21/24 PATHOLOGY REPORT OSH: FINAL DIAGNOSIS: Skin, [...] mm from the melanoma DIAGNOSTIC IMAGING STUDIES: 04/04/[address] OSH: IMPRESSION: 1. Multiple [...] lower extremity Port a cath in place Plan: 2. HOLD treatment with Opdivo 3 mg/kg and Yervoy 1 mg/kg today. Patient knows to call us should they experience any new symptoms so it may be addressed rapidly. 3. START Ondansetron ODT 8 mg every 8 hours as needed for treatment related nausea. Use Prochlorperazine 10 mg every 6 hours for break through symptoms. 4. Continue Lomotil 2.5 mg QID as needed for treatment related diarrhea. Patient was encouraged to try OTC Imodium for mild symptoms to prevent constipation. 5. Continue Omeprazole 40 mg daily for acid reflux symptoms. 6. IVF, steroids, and labs today. 7. Encouraged Dayanara to eat bland soups, stews, ice pops, and other easy to eat foods to maintain caloric intake. She was encouraged to eat small meals frequently throughout the day to maintain intake and prevent weight loss while on treatment. Reviewed activities she can do to remain active, gradually increasing duration as stamina improves. 8. Contact the office with any questions, concerns, or new symptoms that arise. Patient was provided office number, advising it will go to exchange after hours. Follow up in 1 week The patient was given an opportunity to ask questions, and all questions answered to patient's satisfaction. Patient verbalizes understanding of the plan as outlined above. The documentation for this visit was completed by Seble Artis acting as a scribe for Markus Moses MD. 07/03/2024, 7:45 AM CDT * Markus Finley MD - 07/03/2024 9:00 AM CDT Outpatient Hem/Onc Progress Note PROGRESS NOTE Dayanara Hilton is a 24 y.o. female seen today for follow up of metastatic melanoma. Patient requests to be called Chris. Chris is currently on treatment with Opdivo 3 mg/kg plus Yervoy 1 mg/kg every28 days, started on 05/01/24. She was recently admitted to [facility] for fever with associated nausea with vomiting and diarrhea. Sepsis protocol was activated and patient was started on cefepime and vancomycin at the outside hospital prior to transfer. She was given IV steroids in conjunction for treatment mediated symptoms. Blood cultures negative x2. She was hypokalemic at 3.1, treated with Klorcon 40 MEQ. She was discharged home on 06/30/24. Prior to this hospital admission patient received treatment on 06/12/24. Upon entering the exam room patient is laying on the exam table due to weakness and dizziness. Patient reports dizziness with postural changes or when standing for long period of time. She reports dizziness started on discharge from hospital. Chris reports her diarrhea has improved since discharge from hospital. Patient reports experiencing 5-6 bowel movements yesterday. Chris reports currently taking Prednisone 5 mg taper, starting at 6 tabs 07/01/24. She reports progressive muscle weakness that has significantly worsened over the last few days. Patient reports nausea only occurring with strong odors. She denies taking Omeprazole for acid symptoms after discharge. Patient deniesdischarge on K+ supplement. Chris reports currently only eating Jello since discharge from hospital.Patient complains of mild stomach pains today, rating 2-3/10. She reports stomach pain severity waxes and wanes. ECOG PERFORMANCE STATUS:1 DIAGNOSIS/TREATMENT HISTORY: Metastatic melanoma [...] Outpatient Medications Marked as Taking for the 07/03/24 encounter (Office Visit) with Markus Finley MD Medication Sig Dispense Refill cefdinir (OMNICEF) 300 MG Capsule Take 1 Capsule by mouth 2 times daily for 4 days. 8 Capsule 0 diphenoxylate-atropine (LOMOTIL) 2.5-0.025 MG Tablet Take 1 Tablet by mouth 4 times daily as neededfor Diarrhea for up to 14 days. 30 Tablet 0 Junel Fe 24 1-20 MG-MCG(24) Tablet Take 1 Tablet by mouth daily. metroNIDAZOLE (FLAGYL) 500 MG Tablet Take 1 Tablet by mouth 3 times daily for 4 days. 12 Tablet 0 omeprazole (PriLOSEC) 40 MG CAPSULE DELAYED RELEASE TAKE 1 CAPSULE BY MOUTH DAILY 90 Capsule 0 ondansetron (Zofran) 4 MG Tablet Take 4 mg by mouth every 8 hours as needed for Nausea - 1st line. Allergies as of 07/03/2024 (No Known Allergies) REVIEW OF SYSTEMS Review of Systems Constitutional: Positive for malaise/fatigue and weight loss. Gastrointestinal: Positive for abdominal pain, diarrhea, heartburn and nausea. Neurological: Positive for dizziness, weakness and headaches. Physical Exam Physical Exam Constitutional: Appearance: She is ill-appearing. Abdominal: Palpations: Abdomen is soft. Tenderness: There is abdominal tenderness (mild). PAIN ASSESSMENT: Chris complains of abdominal pain that waxes and wanes. DATA: Lab Results Component Value Date WBC 10.07 06/30/2024 RBC 5.49 (H) 06/30/2024 HEMOGLOBIN 16.2 (H) 06/30/2024 HEMATOCRIT 47.1 (H) 06/30/2024 MCV 85.8 06/30/2024 MCH 29.5 06/30/2024 MCHC 34.4 06/30/2024 PLATELETCNT 307 06/30/2024 RDW 12.9 06/30/2024 LYMPHOCYTES 29.2 04/18/2024 RELEOS 1.3 04/18/2024 RELBAS 0.6 04/18/2024 ANC 5.28 04/18/2024 MONOCYTES 0.51 04/18/2024 EOSINOPHILS 0.11 04/18/2024 BASOPHILS 0.05 04/18/2024 Lab Results Component Value Date SODIUM 137 06/30/2024 POTASSIUM 3.6 06/30/2024 CHLORIDE 110 (H) 06/30/2024 ANIONGAP 15.6 06/30/2024 GLUCOSE 82 06/30/2024 BUN 7 06/30/2024 CREATININE 0.87 06/30/2024 TOTALPROTEIN 6.0 (L) 06/27/2024 ALBUMIN 3.3 (L) 06/27/2024 CALCIUM 9.6 06/30/2024 SGPTALT 39 06/27/2024 ALKALINEPHO 57 06/27/2024 02/21/24 PATHOLOGY REPORT OSH: FINAL DIAGNOSIS: Skin, [...] IMAGING STUDIES: CT abdomen pelvis done at [facility] on 06/27/2024 No evidence of appendicitis. No [...] Plan: 1. Reviewed patient's recent clinical symptoms, ER visit and hospital admission for diarrhea likelysecondary to immunotherapy. She does not note improvement in her diarrhea however does have weakness, dizziness and fatigue. HOLD treatment with Opdivo 3 mg/kg and Yervoy 1 mg/kg today. 2. We will give her normal saline IV fluid today. Check CBC, CMP, cortisol, TSH and T3-T4 and ACTH levels. Will give her methylprednisolone 125 mg IV in the office today. She will start taking prednisone 80 mg daily at home tomorrow. Continue PPI. 3. START Ondansetron ODT 8 mg every 8 hours as needed for treatment related nausea. Use Prochlorperazine 10 mg every 6 hours for break through symptoms. 4. Continue Lomotil 2.5 mg QID as needed for treatment related diarrhea. Patient was encouraged to try OTC Imodium for mild symptoms to prevent constipation. 5. Continue Omeprazole 40 mg daily for acid reflux symptoms. 6. IVF, steroids, and labs today. 7. Encouraged Dayanara to eat bland soups, stews, ice pops, and other easy to eat foods to maintain caloric intake. She was encouraged to eat small meals frequently throughout the day to maintain intake and prevent weight loss while on treatment. Reviewed activities she can do to remain active, gradually increasing duration as stamina improves. 8. Contact the office with any questions, concerns, or new symptoms that arise. Patient was provided office number, advising it will go to exchange after hours. 9. Check [id number] in the blood today. Tempus XT on original tissue is pending Follow up in 1 week will assess symptoms The patient was given an opportunity to ask questions, and all questions answered to patient's satisfaction. Patient verbalizes understanding of the plan as outlined above. The documentation for this visit was completed by Seble Artis acting as a scribe for Markus Moses MD. 07/03/2024, 10:10 AM CDT The documentation recorded by the scribe was completed while in the exam room with me and the patient. The documentation accurately reflects the service I personally performed and the decisions made by me. I have confirmed and edited the documentation as necessary. Markus Finley MD 07/03/2024, 10:13 AM CDT documented in this encounter Miscellaneous Notes * Interdisciplinary - Zabrina Raines CMA - 07/03/2024 9:00 AM CDT Pt is here for a follow up appetite is fair no falls abd pain is mild score 3 * Interdisciplinary - Zabrina Raines CMA - 07/03/2024 9:00 AM CDT Pt given AVS for follow up visit documented in this encounter Plan of Treatment Upcoming Encounters Date Type Department Care Team (Late st Contact Info) Description 11/15/2024 1:00 PM BUCKLE STRAP DRUM OPERATOR Lab [facility] Services [address] [place] [address] Markus Finley MD [address] [place] [address] 11/15/2024 2:00 PM BUCKLE STRAP DRUM OPERATOR Appointment [facility] MRI 1 [facility] [place] [address] Markus Finley MD [address] [place] [address] Discharge Disposition: Discharged to home or Selfcare documented as of this encounter Procedures Procedure Name Priority Date/Time Associated Diagnosis Comments THYROID STIMULATING HORMONE (TSH) Routine 07/16/2024 12:00 AM CDT THYROID STIMULATING HORMONE (TSH) Routine 07/16/2024 12:00 AM CDT CMP (COMPREHENSIVE METABOLIC PANEL) Routine 07/16/2024 12:00 AM CDT CMP (COMPREHENSIVE METABOLIC PANEL) Routine 07/16/2024 12:00 AM CDT COMPLETE BLOOD COUNT (CBC) WITH DIFF Routine 07/16/2024 12:00 AM CDT documented in this encounter Results * THYROID STIMULATING HORMONE (TSH) (07/16/2024 12:00 AM CDT) Markus Finley MD CHEMISTRY ORDERABLES Fin al Result Performing Organization Address City/State/[facility] Co de Phone Number SCAN * CMP (COMPREHENSIVE METABOLIC PANEL) (07/16/2024 12:00 AM CDT) Markus Finley MD CHEMISTRY ORDERABLES Fin al Result SCAN * THYROID STIMULATING HORMONE (TSH) (07/16/2024 12:00 AM CDT) Markus Finley MD CHEMISTRY ORDERABLES Fin al Result Performing Organization Address City/State/[facility] Co de Phone Number SCAN * CMP (COMPREHENSIVE METABOLIC PANEL) (07/16/2024 12:00 AM CDT) Markus Finley MD CHEMISTRY ORDERABLES Fin al Result Performing Organization Address City/State/[facility] Co de Phone Number SCAN * COMPLETE BLOOD COUNT (CBC) WITH DIFF (07/16/2024 12:00 AM CDT) Markus Finley MD HEMATOLOGY ORDERABLES Fi nal Result Performing Organization Address City/[facility] Co de Phone Number SCAN * ADRENOCORTICOTROPIC HORMONE, P, MILLER ACTH (07/03/2024 10:29 AM CDT) ADRENOCORTICOTROPIC HORMONE (ACTH) 8.7 pg/mL 07/04/2024 12:18 PM CDT [employer] [employer] Comment: REFERENCE VALUE 7.2-63 (a.m. collection) Test Performed by: [facility] [address] [place] [address] Continuous Process Rotary Drum Tanner: Ernie Page Ph.D.; CLIA# [id number] Blood Sub-Q Port Venou s Access Device (Medi-Port, Implanted Port) / Unknown 07/03/2024 10:29 AM CDT 07/03/2024 10:29 AM CDT Markus Finley MD LAB SEND OUTS Final Re sult Performing Organization Address City/[facility]/ZIP Co de Phone Number [facility] * (ABNORMAL) THYROXINE (T4) FREE (07/03/2024 10:29 AM CDT) T4 FREE <0.4(L) 0.7 - 1.9 ng/dL 07/03/2024 11:55 AM CDT [facility] Blood Sub-Q Port Venou s Access Device (Medi-Port, Implanted Port) / Unknown 07/03/2024 10:29 AM CDT 07/03/2024 10:29 AM CDT Result [facility] Markus Finley MD CHEMISTRY ORDERABLES Fin al Result Performing Organization Address [facility] Co de Phone Number [facility] [address] [place] [address] * CORTISOL (07/03/2024 10:29 AM CDT) CORTISOL 18.9 mcg/dL 07/03/2024 11:32 AM CDT [facility] Blood Sub-Q Port Venou s Access Device (Medi-Port, Implanted Port) / Unknown 07/03/2024 10:29 AM CDT 07/03/2024 10:29 AM CDT Narrative [facility] - 07/03/2024 11:32 AM CDT AM: ??4 TO 19 mcg/dL PM: ??Approx. Half of AM Value ?? Markus Finley MD CHEMISTRY ORDERABLES Fin al Result Performing Organization Address City/[facility]/ZIP Co de Phone Number [facility] [place] [address] * (ABNORMAL) TRIIODOTHYRININE (T3) FREE (07/03/2024 10:29 AM CDT) FREE T3 <1.5(L) 1.6 - 3.9 pg/mL 07/03/2024 4:27 PM CDT [facility] Blood Sub-Q Port Venou s Access Device (Medi-Port, Implanted Port) / Unknown 07/03/2024 10:29 AM CDT 07/03/2024 10:29 AM CDT Markus Finley MD CHEMISTRY ORDERABLES Fin al Result Performing Organization Address [facility] Co de Phone Number [facility] [address] [place] [address], * (ABNORMAL) THYROID STIMULATING HORMONE (TSH) (07/03/2024 10:29 AM CDT) TSH 42.415(H) 0.300 - 5.000 mIU/L 07/03/2024 11:32 AM CDT [facility] Blood Sub-Q Port Venou s Access Device (Medi-Port, Implanted Port) / Unknown 07/03/2024 10:29 AM CDT 07/03/2024 10:29 AM CDT Markus Finley MD CHEMISTRY ORDERABLES Fin al Result Performing Organization Address City/[facility] Co de Phone Number [facility] [place] [address] * (ABNORMAL) CMP (COMPREHENSIVE METABOLIC PANEL) (07/03/2024 10:29 AM CDT) SODIUM 125(L) 136 - 145 mmol/L 07/03/2024 11:17 AM CDT [facility] POTASSIUM 3.0(L) 3.5 - 5.1 mmol/L 07/03/2024 11:17 AM T [facility] CHLORIDE 99 98 - 107 mmol/L 07/03/2024 11:17 AM T [facility] CO2, VENOUS 12(L) 22 - 30 mmol/L 07/03/2024 11:17 AM CDT [facility] ANION GAP 17.0 <18.0 mmol/L 07/03/2024 11:17 AM CDT [facility] GLUCOSE 150(H) 70 - 99 mg/dL 07/03/2024 11:17 AM T [facility] BUN 23(H) 5 - 18 mg/dL 07/03/2024 11:17 AM [facility] CREATININE, BLOOD 1.55(H) 0.60 - 1.00 mg/dL 07/03/2024 11:17 AM T [facility] BUN/CREATININE RATIO 15 12 - 20 ratio 07/03/2024 11:17 AM [facility] TOTAL PROTEIN 7.7 6.3 - 8.2 g/dL 07/03/2024 11:17 AM T [facility] ALBUMIN 4.2 3.5 - 5.0 g/dL 07/03/2024 11:17 AM [facility] A/G RATIO 1.2 1.0 - 2.2 07/03/2024 11:17 AM CDT [facility] CALCIUM 9.4 8.7 - 10.5 mg/dL 07/03/2024 11:17 AM T [facility] T BILI 0.9 0.2 - 1.2 mg/dL 07/03/2024 11:17 AM CDT [facility] SGOT (AST) 28 5 - 34 U/L 07/03/2024 11:17 AM CDT [facility] SGPT (ALT) 64(H) 0 - 55 U/L 07/03/2024 11:17 AM CDT [facility] ALKALINE PHOSPHATASE 79 40 - 150 U/L 07/03/2024 11:17 AM CDT [facility] IS THE PATIENT REQUIRED TO BE FASTING? No 07/03/2024 11:17 AM CDT [facility] GFR, ESTIMATED 48(L) >=60 07/03/2024 11:17 AM CDT [facility] Comment: Creatinine Clearance is the preferred criteria for selecting drug dose adjustments in renally impaired patients. ??The GFR is provided as additional pertinent clinical information. GFR is reported in mL/min/1.73 sq m. Calculation based on the Chronic Kidney Disease Epidemiology Collaboration (CKD- EPI) equation refit without adjustment for race. GFR, EST. 50(L) >=60 024 11:17 AM CDT [facility] GFR, EST. NONAFRICAN 41(L) >=60 07/03/2024 11:17 AM CDT [facility] Blood Sub-Q Port Venou s Access Device (Medi-Port, Implanted Port) / Unknown 07/03/2024 10:29 AM CDT 07/03/2024 10:29 AM CDT us Markus Finley MD CHEMISTRY ORDERABLES Fin al Result [facility] [place] [address] documented in this encounter Visit Diagnoses Diagnosis Metastatic melanoma (HCC)- Primary Melanoma of skin, site unspecified Functional diarrhea Hypotension due to drugs Other iatrogenic hypotension Diarrhea due to drug Diarrhea Immunotherapy Reserved for inherently not codable concepts WITHOUT codable children Dizziness Dizziness and giddiness documented in this encounter Care Teams Executive Team Leader Relationship Specialty Start Date End Date Pritesh Chu MD [address] [place] [address] PCP - General Family Medicine 04/18/24 Markus Finley MD [address] [place] [address] Consulting Physician Medical Oncology 04/18/24 documented as of this encounter
--- OUTSIDE RECORDS SUMMARY | 2024-10-26 08:04 | XMS_ITS | Encounter Summary ---
Author Organization [facility] Care Team Providers Care Clothing Sales Assistant Name Role Phone Pritesh Chu MD Primary Care Provider [phone] Markus Finley MD Unavailable [phone] Encounter Details Date Type Department Care Team (Latest Contact Info) Description 06/12/2024 Travel Social History Tobacco Use Types Packs/Day [...] 8:39 AM CDT Sexual Orientation Bisexual 06/20/2024 8 :39 AM CDT documented as of this encounter Plan of Treatment Upcoming Encounters Date Type Department Care Team (Late st Contact Info) Description 11/15/2024 1:00 PM FIELD OPERATIONS FARM MANAGER Lab [facility] Laboratory Services [address] [place] [id number] Markus Finley MD [address] [place] [address] 11/15/2024 2:00 PM FIELD OPERATIONS FARM MANAGER Appointment [facility] MRI [address] [place] [address] Markus Finley MD [address] [place] [address] Discharge Disposition: Discharged to home or Selfcare documented as of this encounter Visit Diagnoses Not on filedocumented in this encounter Care Teams Clothing Sales Assistant Relationship Specialty Start Date End Date Pritesh Chu MD [address] [address] PCP - General Family Medicine 04/18/24 Markus Finley MD [address] [place] [address] Consulting Physician Medical Oncology 04/18/24 documented as of this encounter
--- OUTSIDE RECORDS SUMMARY | 2024-10-26 08:04 | XMS_ITS | Encounter Summary ---
Author Organization [email or web address] Care Team Providers Care Materials Scheduler Name Role Phone Pritesh Chu MD Primary Care Provider [phone] Markus Finley MD Unavailable [phone] Encounter Details Date Type Department Care Team (Latest Contact Info) Description 07/10/2024 Travel Social History Tobacco Use Types Packs/Day Years Used Date Smoking Tobacco: Former Cigarettes 0.5 8.5 S tarted: 04/18/2016 Smokeless Tobacco: Never Alcohol Use Standard Drinks/Week Comments Yes 0 (1 standard drink = 0.6 oz pur e alcohol) [facility] Utilities Answer Date Recorded In the past 12 months has [employer], gas, oil, or water [employer] threatened to shut off services in your [...] attend chur ch or samaritan services? Never 06/27/2024 Do you belong to any clubs o r organizations such as congregation groups, unions, fraternal or athletic groups, or [...] and heating? Not hard at all 06/27/2024 [facility] [place] of Occupat ional Health - Occupational Stress [...] or living in a long-term (including now)? No 06/27/2024 Comments No Sex [...] st Contact Info) Description 11/15/2024 1:00 PM PLAQUE MAKER Lab [facility] [address] [place] [address] Markus Finley MD [address] [place] [address] 11/15/2024 2:00 PM PLAQUE MAKER Appointment [facility] [address] [place] [address] Markus Finley MD [address] [place] [address] Discharge Disposition: Discharged to home or Selfcare documented as of this encounter Visit Diagnoses Not on filedocumented in this encounter Care Teams Materials Scheduler Relationship Specialty Start Date End Date Pritesh Chu MD [address] [place] [address] PCP - General Family Medicine 04/18/24 Markus Finley MD [address] [place] [address] Consulting Physician Medical Oncology 04/18/24 documented as of this encounter
--- OUTSIDE RECORDS SUMMARY | 2024-10-26 08:04 | XMS_ITS | Encounter Summary ---
Author Organization [facility] Address [address] [facility] [place] [address] Phone Care Team Providers Care Dermatology Nurse Practitioner Name Role Phone Pritesh Chu MD Primary Care Provider [phone] Markus Finley MD Unavailable [phone] Reason for Visit * Episode Based Medications (Routine) - Closed Specialty Diagnoses / Procedures Referred By Contross t Referred To Contact Diagnoses Metastatic melanoma (HCC) Markus Finley MD [address] [place] [address] Phone: tel: fax: [facility] [address] [place] [address] Phone: tel: fax: Referral ID Status Reason Start Date Expiration Date Visits Re quested Visits Authorized [id number] Closed 04/19/2024 1 30 Encounter Details Date Type Department Care Team (Late st Contact Info) Description 07/03/2024 9:30 AM CDT Clinical Support [facility] [address] [place] [id number] Markus Finley MD [address] [place] [address] Metastatic melanoma (HCC) (Primary Dx); Diarrhea due to drug; Functional diarrhea; Hypotension due to drugs; Potassium (K) deficiency Discharge Disposition: Discharged to home or Selfcare Social History Tobacco Use Types Packs/Day Years Used Date Smoking Tobacco: Former Cigarettes 0.5 8.5 S tarted: 04/18/2016 Smokeless Tobacco: Never Alcohol Use Standard Drinks/Week Comments Yes 0 (1 standard drink = 0.6 oz pur e alcohol) [facility] Utilities Answer Date Recorded In the past 12 months has e [employer], gas, oil, or water [employer] threatened to shut off services in your [...] often do you attend chur ch or uatsdin services? Never 06/27/2024 Do you belong to any clubs o r organizations such as yazidi groups, unions, fraternal or athletic groups, or [...] and heating? Not hard at all 06/27/2024 [place] of Occupat ional Health - Occupational [...] money to buy more. Never true 06/27/20 Within the past 12 months, t he [...] Sign Reading Time Taken Comments Blood Pressure 120/78 07/03/2024 2:24 PM CDT Pulse - - Temperature - - Respiratory Rate - - Oxygen Saturation - - Inhaled Oxygen Concentration - - Weight - - Height - - Body Mass Index - - documented in this encounter Miscellaneous Notes * Interdisciplinary - Liliana Finney RN - 07/03/2024 9:30 AM CDT Pt and guest to treatment area after MD follow-up. Pt c/o dizziness. No Opdivo/Yervoy today. New orders for orthostatic BP readings, 1L NS, 15mg SoluMedrol IV x1, and check ordered labs (including Guardant) today. Labs drawn from port x2 attempt. Flushed easily with NS and with good blood return. Port needle intact and patent. Per lab results, MD ordered add'l 1L NS and potassium IV/PO per JAN. Rx KlorCon 20mEq BID to home pharmacy, in addition to Dex and Zofran previously sent. Pt to return tomorrow for lab recheck and possible fluids/IV replacement. Pt tolerated all procedures well. Post infusion, BP rechecked; pt reports less dizziness. Port flushed with NS and heparin per protocol and port needle removed. Port site covered with bandaid. Patient left tx area in stable condition with nofurther requests with guest. documented in this encounter Plan of Treatment Upcoming Encounters Date Type Department Care Team (Late st Contact Info) Description 11/15/2024 1:00 PM TELEPHONE APPOINTMENT CLERK [facility] [address] [place] [address] Markus Finley MD [address] [place] [address] 11/15/2024 2:00 PM TELEPHONE APPOINTMENT CLERK [facility] [address] [place] [phone] Markus Finley MD [address] [place] [address] Discharge Disposition: Discharged to home or Selfcare documented as of this encounter Procedures Procedure Name Priority Date/Time Associated Diagnosis Comments MANUAL DIFFERENTIAL Routine 07/03/2024 1 0:29 AM CDT Metastatic melanoma (HCC) Functional diarrhea Hypotension due to drugs CBC WITH AUTO DIFFERENTIAL Routine 07/03 10:29 AM CDT Metastatic melanoma (HCC) Functional diarrhea Hypotension due to drugs ADRENOCORTICOTROPIC HORMONE, P, MILLER ACTH Routine 07/03/2024 10:29 AM CDT Metastatic melanoma (HCC) Functional diarrhea Hypotension due to drugs THYROXINE (T4) FREE Routine 07/03/2024 1 0:29 AM CDT Metastatic melanoma (HCC) Functional diarrhea Hypotension due to drugs THYROID STIMULATING HORMONE (TSH) Routine 07/03/2024 10:29 AM CDT Metastatic melanoma (HCC) Functional diarrhea Hypotension due to drugs TRIIODOTHYRININE (T3) FREE Routine 07/03 10:29 AM CDT Metastatic melanoma (HCC) Functional diarrhea Hypotension due to drugs CORTISOL Routine 07/03/2024 10:29 AM CDT Metastatic melanoma (HCC) Functional diarrhea Hypotension due to drugs CMP (COMPREHENSIVE METABOLIC PANEL) Routine 07/03/2024 10:29 AM CDT Metastatic melanoma (HCC) Functional diarrhea Hypotension due to drugs COMPLETE BLOOD COUNT (CBC) WITH DIFF Routine 07/03/2024 10:29 AM CDT Metastatic melanoma (HCC) Functional diarrhea Hypotension due to drugs documented in this encounter Results * (ABNORMAL) MANUAL DIFFERENTIAL (07/03/2024 10:29 AM CDT) BANDS % 6.0 0.0 - 10.0 % 07/03/2024 12:01 PM CDT [facility] NEUTROPHILS % 72.0 47.0 - 73.0 % 07/03/2024 12:01 PM CDT [facility] LYMPHOCYTES % 16.0(L) 18.0 - 42.0 % 07/03/2024 12:01 PM CDT [facility] MONOCYTES % 5.0 4.0 - 12.0 % 07/03/2024 12:01 PM CDT [facility] METAMYELOCY[facility] % 1.0(H) <=0.0 % 07/03/20 12:01 PM CDT [facility] NEUTROPHILS ABSOLUTE 14.67(H) 1.60 - 7.70 10(3)/mcL 07/03/2024 12:01 PM CDT [facility] LYMPHOCYTES ABSOLUTE 3.01 1.30 - 3.20 10(3)/mcL 07/03/2024 12:01 PM CDT [facility] MONOCYTES ABSOLUTE 0.94 0.20 - 1.00 10(3)/mcL 07/03/2024 12:01 PM CDT [facility] RBC MORPHOLOGY CONSISTENT WITH INDICES Yes 07/03/2024 12:01 PM CDT [facility] POLYCHROMASIA 1+ 07/03/2024 12:01 PM CDT [facility] LARGE PLATELETS 1+ 12:01 PM CDT [facility] WBC MORPH STATUS Normal 07/03/20 12:01 PM CDT [facility] Blood Sub-Q Port Venou s Access Device (Medi-Port, Implanted Port) / Unknown 07/03/2024 10:29 AM CDT 07/03/2024 10:29 AM CDT us Markus Finley MD HEMATOLOGY ORDERABLES Fi nal Result [facility] [address] [place] [address] * (ABNORMAL) CBC WITH AUTO DIFFERENTIAL (07/03/2024 10:29 AM CDT) WBC 18.81(H) 4.00 - 12.00 10(3)/mcL 07/03/2024 12:01 PM CDT [facility] RBC 6.30(H) 3.80 - 5.30 10(6)/mcL 07/03/2024 12:01 PM CDT [facility] HEMOGLOBIN (HGB) 18.5(H) 12.0 - 15.8 g/dL 07/03/2024 12:01 PM CDT [facility] HEMATOCRIT (HCT) 52.1(H) 36.0 - 47.0 % 07/03/2024 12:01 PM CDT [facility] MCV 82.7 82.0 - 96.0 fL 07/03/2024 12:01 PM CDT [facility] MCH 29.4 26.0 - 34.0 pg 07/03/2024 12:01 PM CDT [facility] MCHC 35.5 31.0 - 36.0 g/dL 07/03/2024 12:01 PM CDT [facility] PLATELET COUNT 436 140 - 440 10(3)/[facility] 07/03/2024 12:01 PM CDT [facility] RDW 12.8 11.8 - 15.5 % 07/03/2024 12:01 PM CDT [facility] MPV 10.2 9.7 - 12.4 fL 07/03/2024 12:01 PM CDT [facility] NRBC PER 100 WBC 0 07/03/2024 12:01 PM CDT [facility] RESULTS ARE CONSISTENT WITH PERIPHERAL SMEAR REVIEW Yes 07/03/2024 12:01 PM CDT [facility] Blood Sub-Q Port Venou s Access Device (Medi-Port, Implanted Port) / Unknown 07/03/2024 10:29 AM CDT 07/03/2024 10:29 AM CDT us Markus Finley MD HEMATOLOGY ORDERABLES Fi nal Result [facility] [address] [place] [address] * ADRENOCORTICOTROPIC HORMONE, P, MILLER ACTH (07/03/2024 10:29 AM CDT) ADRENOCORTICOTROPIC HORMONE (ACTH) 8.7 pg/mL 07/04/2024 12:[address] [facility] Comment: REFERENCE VALUE 7.2-63 (a.m. collection) Test Performed by: [place] [address] Sailing Master: Ernie Page Ph.D.; CLIA# [id number] Blood Sub-Q Port Venou s Access Device (Medi-Port, Implanted Port) / Unknown 07/03/2024 10:29 AM CDT 07/03/2024 10:29 AM CDT Markus Finley MD LAB SEND OUTS Final Re sult [facility] US * (ABNORMAL) THYROXINE (T4) FREE (07/03/2024 10:29 AM CDT) Pathologist [facility] T4 FREE <0.4(L) 0.7 - 1.9 ng/dL 07/03/2024 11:55 AM CDT [facility] Blood Sub-Q Port Venou s Access Device (Medi-Port, Implanted Port) / Unknown 07/03/2024 10:29 AM CDT 07/03/2024 10:29 AM CDT Markus Finley MD CHEMISTRY ORDERABLES Fin al Result [facility] [address] [place] [address] * CORTISOL (07/03/2024 10:29 AM CDT) CORTISOL 18.9 mcg/dL 07/03/2024 11:32 AM CDT [facility] Blood Sub-Q Port Venou s Access Device (Medi-Port, Implanted Port) / Unknown 07/03/2024 10:29 AM CDT 07/03/2024 10:29 AM CDT Narrative [facility] - 07/03/2024 11:32 AM CDT AM: ??4 TO 19 mcg/dL PM: ??Approx. Half of AM Value ?? Markus Finley MD CHEMISTRY ORDERABLES Fin al Result Performing Organization Address City/[facility]/ZIP Co de Phone Number [facility] [address] [place] [address] * (ABNORMAL) TRIIODOTHYRININE (T3) FREE (07/03/2024 10:29 AM CDT) FREE T3 <1.5(L) 1.6 - 3.9 pg/mL 07/03/2024 4:27 PM CDT [facility] Blood Sub-Q Port Venou s Access Device (Medi-Port, Implanted Port) / Unknown 07/03/2024 10:29 AM CDT 07/03/2024 10:29 AM CDT Markus Finley MD CHEMISTRY ORDERABLES Fin al Result [facility] [address] [place] [address], * (ABNORMAL) THYROID STIMULATING HORMONE (TSH) (07/03/2024 10:29 AM CDT) TSH 42.415(H) 0.300 - 5.000 mIU/L 07/03/2024 11:32 AM CDT [facility] Blood Sub-Q Port Venou s Access Device (Medi-Port, Implanted Port) / Unknown 07/03/2024 10:29 AM CDT 07/03/2024 10:29 AM CDT us Markus Finley MD CHEMISTRY ORDERABLES Jacob al Result [facility] [address] [place] [address] * (ABNORMAL) CMP (COMPREHENSIVE METABOLIC PANEL) (07/03/2024 10:29 AM CDT) SODIUM 125(L) 136 - 145 mmol/L 07/03/2024 11:17 AM CDT [facility] POTASSIUM 3.0(L) 3.5 - 5.1 mmol/L 07/03/2024 11:17 AM CDT [facility] CHLORIDE 99 98 - 107 mmol/L 07/03/2024 11:17 AM CDT [facility] CO2, VENOUS 12(L) 22 - 30 mmol/L 07/03/2024 11:17 AM CDT [facility] ANION GAP 17.0 <18.0 mmol/L 07/03/2024 11:17 AM CDT [facility] GLUCOSE 150(H) 70 - 99 mg/dL 07/03/2024 11:17 AM CDT [facility] BUN 23(H) 5 - 18 mg/dL 07/03/2024 11:17 AM CDT [facility] CREATININE, BLOOD 1.55(H) 0.60 - 1.00 mg/dL 07/03/2024 11:17 AM CDT [facility] BUN/CREATININE RATIO 15 12 - 20 ratio 07/03/2024 11:17 AM CDT [facility] TOTAL PROTEIN 7.7 6.3 - 8.2 g/dL 07/03/2024 11:17 AM CDT [facility] ALBUMIN 4.2 3.5 - 5.0 g/dL 07/03/2024 11:17 AM CDT [facility] A/G RATIO 1.2 1.0 - 2.2 07/03/2024 11:17 AM CDT [facility] CALCIUM 9.4 8.7 - 10.5 mg/dL 07/03/2024 11:17 AM CDT [facility] T BILI 0.9 0.2 - 1.2 mg/dL 07/03/2024 11:17 AM CDT [facility] SGOT (AST) 28 5 - 34 U/L 07/03/2024 11:17 AM CDT [facility] SGPT (ALT) 64(H) 0 - 55 U/L 07/03/2024 11:17 AM CDT [facility] ALKALINE PHOSPHATASE 79 40 - 150 U/L 07/03/2024 11:17 AM CDT [facility] IS THE PATIENT REQUIRED TO BE FASTING? No 07/03/2024 11:17 AM CDT [facility] GFR, ESTIMATED 48(L) >=60 07/03/2024 11:17 AM CDT [facility] Comment: Creatinine Clearance is the preferred criteria for selecting drug dose adjustments in renally impaired patients. ??The GFR is provided as additional pertinent clinical information. GFR is reported in mL/min/1.73 sq m. Calculation based on the Chronic Kidney Disease Epidemiology Collaboration (CKD- EPI) equation refit without adjustment for race. GFR, EST. 50(L) >=60 024 11:17 AM CDT [facility] GFR, EST. NONAFRICAN 41(L) >=60 07/03/2024 11:17 AM CDT [facility] Blood Sub-Q Port Venou s Access Device (Medi-Port, Implanted Port) / Unknown 07/03/2024 10:29 AM CDT 07/03/2024 10:29 AM CDT us Markus Finley MD CHEMISTRY ORDERABLES Fin al Result [facility] [address] [place] [address] documented in this encounter Visit Diagnoses Diagnosis Metastatic melanoma (HCC)- Primary Melanoma of skin, site unspecified Diarrhea due to drug Diarrhea Functional diarrhea Hypotension due to drugs Other iatrogenic hypotension Potassium (K) deficiency Hypopotassemia documented in this encounter Administered Medications Inactive Administered Medications - up to 3 most recent administrations Medication Order MAR Action Action Date Dose Rate Site 0.9 % sodium chloride solution at 999 mL/hr, Intravenous, ONCE, 1 dose, On Tue07/03/24 at 1030Indications:Metastatic melanoma (HCC),Diarrhea due to drug New Bag 07/03/2024 10:31 AM CDT 1,000 mL 999 mL/hr 0.9 % sodium chloride solution at 999 mL/hr, Intravenous, ONCE, 1 dose, On Tue07/03/24 at 1200Indications:Metastatic melanoma (HCC) New Bag 07/03/2024 12:12 PM CDT 1,000 mL 999 mL/hr Heparin Na (Pork) Lock Flsh PF SOLN 50 Units 50 Units, Intravenous, PRN, Starting on Tue07/03/24 at 1009, Until Tue07/03/24 at 1637, Line CareIndications:Metastatic melanoma (HCC),Diarrhea due to drug Given 07/03/2024 2:13 PM CDT 50 Units methylPREDNISolone Na Suc (PF) (Solu-MEDROL) injection 125 mg 125 mg, Intravenous, ONCE, 1 dose, On Tue07/03/24 at 1030Indications:Metastatic melanoma (HCC),Diarrhea due to drug Given 07/03/2024 10:32 AM CDT 125 mg potassium chloride IVPB 20 mEq 100 mL 20 mEq, Intravenous, ONCE, 1 dose, On Tue07/03/24 at 1230, Administer over 2 Hours, Infuse 20 mEq over 2 hoursIndications:Metastatic melanoma (HCC) New Bag 07/03/2024 12:12 PM CDT 20 mEq potassium chloride SA (KLORCON M) tablet 20 mEq 20 mEq, Oral, ONCE, 1 dose, On Tue07/03/24 at 1200, Do Not CrushIndications:Metastatic melanoma (HCC) Given 07/03/2024 11:57 AM CDT 20 mEq documented in this encounter Care Teams Dermatology Nurse Practitioner Relationship Specialty Start Date End Date Pritesh Chu MD [address] [address] PCP - General Family Medicine 04/18/24 Markus Finley MD [address] [place] [address] Consulting Physician Medical Oncology 04/18/24 documented as of this encounter
--- OUTSIDE RECORDS SUMMARY | 2024-10-26 08:04 | XMS_ITS | Encounter Summary ---
Author Organization [employer] Care Team Providers Care Entry Level Accountant Name Role Phone Pritesh Chu MD Primary Care Provider [phone] Markus Finley MD Unavailable [phone] Encounter Details Date Type Department Care Team (Latest Contact Info) Description 07/17/2024 Travel Social History Tobacco Use Types Packs/Day Years Used Date Smoking Tobacco: Former Cigarettes 0.5 8.5 S tarted: 04/18/2016 Smokeless Tobacco: Never Alcohol Use Standard Drinks/Week Comments Yes 0 (1 standard drink = 0.6 oz pur e alcohol) [facility] Utilities Answer Date Recorded In the past 12 months has [employer], gas, oil, or water [employer] threatened to shut off services in your [...] often do you attend chur ch or temple services? Never 06/27/2024 Do you belong to [...] and heating? Not hard at all 06/27/2024 [facility] [place] of Occupat ional Health - Occupational Stress [...] or living in a chcf (including now)? No 06/27/2024 Comments No Sex [...] st Contact Info) Description 11/15/2024 1:00 PM TIMBER HAND [facility] [address] [place] [address] Markus Finley MD [address] [place] [address] 11/15/2024 2:00 PM TIMBER HAND [facility]ment [facility] [address] [place] [address] Markus Finley MD [address] [place] [address] Discharge Disposition: Discharged to home or Selfcare documented as of this encounter Visit Diagnoses Not on filedocumented in this encounter Care Teams Entry Level Accountant Relationship Specialty Start Date End Date Pritesh Chu MD [address] [place] [address] PCP - General Family Medicine 04/18/24 Markus Finley MD [address] [place] [address] Consulting Physician Medical Oncology 04/18/24 documented as of this encounter
--- OUTSIDE RECORDS SUMMARY | 2024-10-26 08:04 | XMS_ITS | Encounter Summary ---
Author Organization [facility] Address [address] [facility] [place] [address] Phone Care Team Providers Care Air Brake Rigger Name Role Phone Pritesh Chu MD Primary Care Provider [phone] Markus Finley MD Unavailable [phone] Encounter Details Date Type Department Care Team (Latest Contact Info) Description 07/06/2024 9:30 AM CDT Clinical Support [facility] Oncology Services [address] [place] [id number] Markus Finley MD [address] [place] [address] Hypokalemia due to excessive gastrointestinal loss of potassium (Primary Dx); Metastatic melanoma (HCC) Discharge Disposition: Discharged to home or Selfcare Social History Tobacco Use Types Packs/Day Years Used Date Smoking Tobacco: Former Cigarettes 0.5 8.5 S tarted: 04/18/2016 Smokeless Tobacco: Never Alcohol Use Standard Drinks/Week Comments Yes 0 (1 standard drink = 0.6 oz pur e alcohol) [facility] Utilities Answer Date Recorded [...] often do you attend chur ch or jain services? Never 06/27/2024 Do you belong to [...] and heating? Not hard at all 06/27/2024 [facility] - [...] living in a senior care (including now)? No 06/27/2024 Comments No Sex and Gender Information Value Date Recorded Sex Assigned at Female 06/20/2024 8:39 AM CDT Legal Sex Female 9:04 AM CDT Gender Identity Female 06/20/2024 8:39 AM CDT Sexual Orientation Bisexual 06/20/2024 8: 39 AM CDT documented as of this encounter Last Filed Vital Signs Vital Sign Reading Time Taken Comments Blood Pressure 110/80 07/06/2024 10:08 AM CDT Pulse 111 07/06/2024 10:08 AM CDT Temperature 35.7 ??C (96.3 ??F) 07/06/2024 10:08 AM C DT Respiratory Rate 16 07/06/2024 10:08 AM CDT Oxygen Saturation 98% 07/06/2024 10:08 AM CDT Inhaled Oxygen Concentration - - Weight - - Height - - Body Mass Index - - documented in this encounter Miscellaneous Notes * Interdisciplinary - Tata Paez RN - 07/06/2024 9:30 AM CDT Presents for scheduled lab draw and potassium. Vitals obtained. Port accessed and labs drawn. Patient reports having 6-7 loose stools since being here yesterday. Does report taking home potassium supplements as ordered. Potassium infused as ordered. Reviewed labs with , states to increase home potassium to 60meq bid and to ensure taking lomotil. She is also to return Tuesday for lab draw to check bmp. Patient made aware and verbalized understanding. Port de- accessed and band-aid applied. Leftinfusion room in stable condition documented in this encounter Plan of Treatment Upcoming Encounters Date Type Department Care Team (Late st Contact Info) Description 11/15/2024 1:00 PM COMPENSATION SPECIALIST Lab [facility] Laboratory Services [address] [place] [address] Markus Finley MD [address] [place] [address] 11/15/2024 2:00 PM COMPENSATION SPECIALIST Appointment [facility] MRI [address] [place] [address] Markus Finley MD [address] [place] [address] Discharge Disposition: Discharged to home or Selfcare documented as of this encounter Procedures Procedure Name Priority Date/Time Associated Diagnosis Comments CMP (COMPREHENSIVE METABOLIC PANEL) STAT 07/06/2024 10:19 AM CDT documented in this encounter Results * (ABNORMAL) CMP (Comprehensive Metabolic Panel) (07/06/2024 10:19 AM CDT) SODIUM 131(L) 136 - 145 mmol/L 07/06/2024 11:13 AM CDT [facility] POTASSIUM 2.7(LL) 3.5 - 5.1 mmol/L 07/06/2024 11:13 AM CDT [facility] CHLORIDE 105 98 - 107 mmol/L 07/06/2024 11:13 AM CDT [facility] CO2, VENOUS 17(L) 22 - 30 mmol/L 07/06/2024 11:13 AM CDT [facility] ANION GAP 11.7 <18.0 mmol/L 07/06/2024 11:[address] [facility] GLUCOSE 143(H) 70 - 99 mg/dL 07/06/2024 11:13 AM T [facility] BUN 8 5 - 18 mg/dL 07/06/2024 11:[address] [facility] CREATININE, BLOOD 0.99 0.60 - 1.00 mg/dL 07/06/2024 11:13 AM T [facility] BUN/CREATININE RATIO 8(L) 12 - 20 ratio 07/06/2024 11:[address] [facility] TOTAL PROTEIN 6.2(L) 6.3 - 8.2 g/dL 07/06/2024 11:[address] [facility] ALBUMIN 3.5 3.5 - 5.0 g/dL 07/06/2024 11:[address] [facility] A/G RATIO 1.3 1.0 - 2.2 07/06/2024 11:[address] [facility] CALCIUM 9.0 8.7 - 10.5 mg/dL 07/06/2024 11:[address] [facility] T BILI 0.5 0.2 - 1.2 mg/dL 07/06/2024 11:[address] [facility] SGOT (AST) 24 5 - 34 U/L 07/06/2024 11:[address] [facility] SGPT (ALT) 50 0 - 55 U/L 07/06/2024 11:[address] [facility] ALKALINE PHOSPHATASE 57 40 - 150 U/L 07/06/2024 11:[address] [facility] GFR, ESTIMATED >60 >=60 07/06/2024 11:[address] [facility] Comment: Creatinine Clearance is the preferred criteria for selecting drug dose adjustments in renally impaired patients. ??The GFR is provided as additional pertinent clinical information. GFR is reported in mL/min/1.73 sq m. Calculation based on the Chronic Kidney Disease Epidemiology Collaboration (CKD- EPI) equation refit without adjustment for race. GFR, EST. >60 >=60 024 11:13 AM CDT [facility] GFR, EST. NONAFRICAN >60 >=60 07/06/2024 11:13 AM CDT [facility] Blood Sub-Q Port Venou s Access Device (Medi-Port, Implanted Port) / Unknown 07/06/2024 10:19 AM CDT 07/06/2024 10:19 AM CDT us Markus Finley MD CHEMISTRY ORDERABLES Fin al Result [facility] [place] [address] documented in this encounter Visit Diagnoses Diagnosis Hypokalemia due to excessive gastrointestinal loss of potassium- Primary Metastatic melanoma (HCC) Melanoma of skin, site unspecified documented in this encounter Administered Medications Inactive Administered Medications - up to 3 most recent administrations Medication Order MAR Action Action Date Dose Rate Site 0.9 % sodium chloride with potassium chloride 20 mEq/L infusion at 500 mL/hr, Intravenous, ONCE, 1 dose, On Tue07/06/24 at 1030Indications:Hypokalemia due to excessive gastrointestinal loss of potassium,Metastatic melanoma (HCC) New Bag 07/06/2024 10:21 AM CDT 500 mL/hr 500 mL/hr Heparin Na (Pork) Lock Flsh PF SOLN 50 Units 50 Units, Intravenous, PRN, Starting on Tue07/06/24 at 1230, Until Tue07/06/24 at 1602, Line CareIndications:Metastatic melanoma (HCC) Given 07/06/2024 12:32 PM CDT 50 Units documented in this encounter Care Teams Air Brake Rigger Relationship Specialty Start Date End Date Pritesh Chu MD [address] [place] [address] PCP - General Family Medicine 04/18/24 Markus Finley MD [address] [place] [address] Consulting Physician Medical Oncology 04/18/24 documented as of this encounter
--- OUTSIDE RECORDS SUMMARY | 2024-10-26 08:04 | XMS_ITS | Encounter Summary ---
Author Organization [facility] Address [address] [place] [address] Phone Care Team Providers Care Friend Of The Court Name Role Phone Kellen Chu MD Primary Care Provider [phone] Markus Finley MD Unavailable [phone] Reason for Visit * Reason Comments Fatigue * Auth/Cert (Routine) Specialty Diagnoses / Procedures Referred By Contross t Referred To Contact Diagnoses Dehydration Rebeca Andrea MD [address] [place] [address] Phone: tel: fax: Referral ID Status Reason Start Date Expiration Date Visits Re quested Visits Authorized [id number] 1 1 Encounter Details Date Type Department Care Team (Late st Contact Info) Description 07/23/2024 7:57 AM CDT - 07/24/2024 6:54 PM CDT Emergency [facility] [address] [place] [address] [phone] Hayden Angel MD [address] [place] [address] Rebeca Andrea MD [address] [place] [address] Lee Lan MD [address] [place] [address] Dehydration Discharge Disposition: Discharged to home or Selfcare Social History Tobacco Use Types Packs/Day Years Used Date Smoking Tobacco: Former Cigarettes 0.5 8.5 S tarted: 04/18/2016 Smokeless Tobacco: Never Alcohol Use Standard Drinks/Week Comments Yes 0 (1 standard drink = 0.6 oz pur e alcohol) [facility] Utilities Answer Date Recorded In the [...] declined 07/25/2024 How often do you attend restoration or zoroastrianism serv ices? Patient declined 07/25/2024 Do you belong to any clubs o r organizations such as restoration groups, unions, fraternal or athletic groups, or [...] medical care, and heating? Patient declined 07/25/2024 [facility] - Occupational [...] were you homeless or living in a detention (including now)? Patient declined 07/25/2024 Comments No Sex and Gender Information Value Date Recorded Sex Assigned at Female 06/20/2024 8:39 AM CDT Legal Sex Female 9:04 AM CDT Gender Identity Female 06/20/2024 8:39 AM CDT Sexual Orientation Bisexual 06/20/2024 8: 39 AM CDT documented as of this encounter Last Filed Vital Signs Vital Sign Reading Time Taken Comments Blood Pressure 116/82 07/24/2024 4:00 PM CDT Pulse 92 07/24/2024 4:00 PM CDT Temperature 36.1 ??C (96.9 ??F) 07/24/2024 4:00 PM CD T Respiratory Rate 18 07/24/2024 4:00 PM CDT Oxygen Saturation 98% 07/24/2024 4:00 PM CDT Inhaled Oxygen Concentration - - Weight 120.2 kg (265 lb) 07/23/2024 8:02 AM CDT Height 167.6 cm (5' 6 ) 07/23/2024 8:02 AM CDT Body Mass Index 42.77 07/23/2024 8:02 AM CDT documented in this encounter Functional Status * Audit-C Score Answer Date of Assessment Author -1 07/23/2024 3:31 PM NELIAT Franci Tabor RN * Within the last year, have you been humiliated or emotionally abused in other ways by your partner or ex-partner? Answer Date of Assessment Author Patient declined 07/23/2024 3:31 PM Mara Serna RN * Within the last year, have you been afraid of your partner or ex-partner? Answer Date of Assessment Author Patient declined 07/23/2024 3:31 PM NELIAT Mara Tabor RN * Within the last year, have you been raped or forced to have any kind of sexual activity by your partner or ex-partner? Answer Date of Assessment Author Patient declined 07/23/2024 3:31 PM Mara Serna RN * Within the last year, have you been kicked, hit, slapped, or otherwise physically hurt by your partner or ex-partner? Answer Date of Assessment Author Patient declined 07/23/2024 3:31 PM NELIAT Mara Tabor RN * Question Answer Date of Assessment Author Q1: How often do you have a drink containing alcohol? Patient declined 07/23/2024 3:31 PM Mara Serna RN Q2: How many drinks containing alcohol do you have on a typical day when you are drinking? Patient declined 07/23/2024 3:31 PM Mara Serna RN Q3: How often do you have six or more drinks on one occasion? Patient declined 07/23/2024 3:31 PM Mara Serna RN documented as of this encounter Discharge Summaries * Lee Lan MD - 07/24/2024 12:47 PM CDT [facility] DISCHARGE SUMMARY Name: Dayanara Hilton Age: 24 y.o. : 2000 Attending Physician: Lee Lan MD Admission Date/Time: 07/23/2024 Discharge Date: 07/24/2024 Primary Care Physician: KELLEN CHU MD Discharging Provider: Lee Lan MD INSTRUCTIONS FOR PHYSICIANS ON FOLLOW UP AFTER DISCHARGE: Follow-up Information Follow up With Specialties Details Why Contact Info Kellen Chu MD Family Medicine Call in 1 week(s) [address] [place] [address] Markus Finley MD Medical Oncology, Hematology, Internal Medicine Call in 1 week(s) [address] [facility] [address] Discharge Instructions: Discharge Condition: improved Disposition: Home Diet: Cardiac Diet Activity: activity as tolerated Primary Diagnosis: Dehydration Principal Problem: Dehydration Active Problems: Morbid obesity (HCC) Non-alcoholic fatty liver disease Miscarriage Miscarriage Melanoma (HCC) Depression Present on Admission: Dehydration Morbid obesity (HCC) Non-alcoholic fatty liver disease Miscarriage Miscarriage Melanoma (HCC) Depression Admitting Diagnoses: Acute kidney injury, diarrhea HOSPITAL COURSE: Dayanara Hilton was admitted 07/23/2024 with Dehydration . Dayanara Hilton is a 24 y.o. female with Melanoma to her left foot and is undergoing immunotherapy with oncologist Dr. Finley, hx of depression and obesity, who presented to [facility] with complaints of dehydration.Pt reports since her immunotherapy treatment, she has had nausea, vomiting, and diarrhea. Has not been able to keep down food. Has had 4+ diarrhea stools per day. Patient presented to the ER for further evaluation, in the ER routine labs showed AG 19.9, c-2 17, Cr 1.61, glucose 110, h/h 16.1/48.5, otherwise unremarkable. UA w/ wbc 11-20, casts 5-10, few bacteria. Admitted for further management. The diarrhea improved during the hospital stay, patient was started on IV hydration with normal saline, creatinine trended down to 1.36, patient however had hypokalemia likely secondary to GI losses, was repleted with potassium chloride. Patient improved clinically and was discharged home to follow-up with primary care physician in 1 week and Oncology with 1-2 weeks. Surgeries performed during stay: * No surgery found * Consults: Exam Day of Discharge: Temp Av.8 ??F (38.2 ??C) Min: 99.1 ??F (37.3 ??C) Max: 102.5 ??F (39.2 ??C) BP Min: 116/73 Max: 132/92 Pulse Av Min: 93 Max: 117 Heart Rate (Monitor) Av.6 Min: 95 Max: 128 Resp Av.2 Min: 17 Max: 20 SpO2 Av.1 % Min: 92 % Max: 100 % BMI: Body mass index is 42.77 kg/m??. Exam: General: alert, morbid obesity, not [...] Review: Lab Results Component Value Date WBC 6.68 07/24/2024 HEMOGLOBIN 15.5 07/24/2024 HEMATOCRIT 47.2 (H) 07/24/2024 PLATELETCNT 323 07/24/2024 MCV 90.2 07/24/2024 Lab Results Component Value Date SODIUM 138 07/24/2024 POTASSIUM 3.2 (L) 07/24/2024 CHLORIDE 101 07/24/2024 CO2VEN 21 (L) 07/24/2024 ANIONGAP 19.2 (H) 07/24/2024 GLUCOSE 84 07/24/2024 BUN 16 07/24/2024 CREATININE 1.59 (H) 07/24/2024 BCRATIO8 10 (L) 07/24/2024 TOTALPROTEIN 8.7 (H) 07/23/2024 ALBUMIN 5.0 07/23/2024 CALCIUM 9.3 07/24/2024 TBIL 1.0 07/23/2024 SGOTAST 25 07/23/2024 SGPTALT 69 (H) 07/23/2024 ALKALINEPHO 85 07/23/2024 GFRNA 40 (L) 07/24/2024 GFRA 48 (L) 07/24/2024 No results found for: GLUCOSEPOCT Lab Results Component Value Date INR 1.1 06/27/2024 PTP 14.1 06/27/2024 No results found for: HGBA1C No results found for: TTEIXLFF34 No results found for: CPK , CPKI , CKMB , CKMBNI , CKMBPOCT , CKMBRELINDX , TROPONINI , POCTRP No results found for: FERRITIN No results found for: FOLATE No results found for: PHARTERIAL , PO2ART , DZX7SMM , CO2ART , O2ART Lab Results Component Value Date LACTICA 1.3 07/23/2024 XR CHEST SINGLE VIEW PORTABLE Result Date: 06/27/2024 IMPRESSION: No acute pulmonary process. DISCHARGE MEDICATION LIST: Medication List START taking these medications HYDROcodone-acetaminophen 5-325 MG Tabs Commonly known as: NORCO Take 1 Tablet by mouth every 4 hours as needed for Moderate or more severe pain. polyethylene glycol 17 g Pack Commonly known as: GLYCOLAX, MIRALAX Take 1 Packet by mouth 2 times daily as needed for Constipation - 1st line. Dissolve in 4-8 oz of liquid. Indications: Constipation senna 8.6 MG Tabs Commonly known as: SENOKOT Take 1 Tablet by mouth 2 times daily as needed for Constipation - 2nd line. CONTINUE taking these medications diphenoxylate-atropine 2.5-0.025 MG Tabs Commonly known as: LOMOTIL Take 1 Tablet by mouth 4 times daily as needed for Diarrhea. 24 1-20 MG-MCG(24) Tabs Generic drug: Norethin Wilfredo-Eth Estrad-FE omeprazole 40 MG Cap-del-rel Commonly known as: PriLOSEC TAKE 1 CAPSULE BY MOUTH DAILY potassium chloride SA 20 MEQ [id number] Commonly known as: KLORCON M Take 3 Tablets by mouth 2 times daily. predniSONE 20 MG Tabs Commonly known as: DELTASONE Take 4 Tablets by mouth daily. Zofran 4 MG Tabs Generic drug: ondansetron STOP taking these medications ondansetron 8 MG Tab-disperse Commonly known as: ZOFRAN-ODT Where to Get Your Medications Information about where to get these medications is not yet available Ask your nurse or doctor about these medications HYDROcodone-acetaminophen 5-325 MG Tabs polyethylene glycol 17 g Pack senna 8.6 MG Tabs Time spent on interview, examination, final orders, recommendations, and care coordination for thishospital discharge: Greater than 30 minutes spent in coordinating care Thank you very much for allowing the [facility] to participate in the care of this patient. If you have any questions, please don't hesitate to call. Signed: Lee Lan MD, 07/24/2024, 12:47 PM CDT documented in this encounter Medications at Time of Discharge diphenoxylate-at ropine (LOMOTIL) 2.5-0.025 MG TabletIndication s:Metastatic melanoma (HCC) Take 1 Tablet by mouth 4 times daily as needed for Diarrhea. 60 Tablet 2 07/12/2024 HYDROcodone-acet aminophen (NORCO) 5-325 MG TabletIndication s:Dehydration,AK I (acute kidney injury) (HCC) Take 1 Tablet by mouth every 4 hours as needed for Moderate or more severe pain. 20 Tablet 07/24/2024 1-20 MG-MCG(24) Tablet Take 1 Tablet by mouth daily. 02/29/2024 omeprazole (PriLOSEC) 40 MG CAPSULE DELAYED RELEASE TAKE 1 CAPSULE BY MOUTH DAILY 90 Capsule 06/25/2024 ondansetron (Zofran) 4 MG Tablet Take 4 mg by mouth every 8 hours as needed for Nausea - 1st line. 4 polyethylene glycol (GLYCOLAX, MIRALAX) 17 g PackIndications: Constipation Take 1 Packet by mouth 2 times daily as needed for Constipation - 1st line. Dissolve in 4-8 oz of liquid. Indications: Constipation 90 Packet 07/24/2024 4 potassium chloride SA (KLORCON M) 20 MEQ Tablet Controlled ReleaseIndicatio ns:Metastatic melanoma (HCC) Take 2 Tablets by mouth 2 times daily. 90 Tablet 07/24/2024 4 predniSONE (DELTASONE) 20 MG Tablet Take 4 Tablets by mouth daily. 90 Tablet 2 07/03/2024 4 senna (SENOKOT) 8.6 MG Tablet Take 1 Tablet by mouth 2 times daily as needed for Constipation - 2nd line. 30 Tablet 07/24/2024 4 documented as of this encounter H&P Notes * Esteban Mcgovern, RAW CHEESE WORKER, BROILER SUPERVISOR - 07/23/2024 3:19 PM CDT [facility] ADMISSION HISTORY & PHYSICAL HPI: Dayanara Hilton is a 24 y.o. female with Melanoma to her left foot and is undergoing immunotherapy with oncologist Dr. Finley, hx of depression and obesity, who presented to [facility] with complaints of dehydration. Pt reports since her immunotherapy treatment, she has had nausea, vomiting, and diarrhea. Has not been able to keep down food. Has had 4+ diarrhea stools per day. Decided to come to the ED for poss dehydration. Laboratory data revealed AG 19.9, c-2 17, Cr 1.61, glucose 110, h/h 16.1/48.5, otherwise unremarkable. UA w/ wbc 11-20, casts 5-10, few bacteria. Admitted for further management. Allergies: has No Known Allergies. Home Medications:th Prior to Admission Medications Prescriptions Last Dose Informant Patient Reported? Taking? 1-20 MG-MCG(24) Tablet Yes No Sig: Take 1 Tablet by mouth daily. diphenoxylate-atropine (LOMOTIL) 2.5-0.025 MG Tablet No No Sig: Take 1 Tablet by mouth 4 times daily as needed for Diarrhea. omeprazole (PriLOSEC) 40 MG CAPSULE DELAYED RELEASE No No Sig: TAKE 1 CAPSULE BY MOUTH DAILY ondansetron (ZOFRAN-ODT) 8 MG TABLET DISPERSIBLE No No Sig: Take 1 Tablet by mouth every 8 hours as needed for Nausea - 1st line. ondansetron (Zofran) 4 MG Tablet Yes No Sig: Take 4 mg by mouth every 8 hours as needed for Nausea - 1st line. potassium chloride SA (KLORCON M) 20 MEQ Tablet Controlled Release No No Sig: Take 3 Tablets by mouth 2 times daily. predniSONE (DELTASONE) 20 MG Tablet No No Sig: Take 4 Tablets by mouth daily. Facility-Administered Medications: None Past Medical History: She [...] in her father. Review of Systems: Reports N/V/D. Denies lightheaded, dizziness blurred vision. Denies Fever, chills, SOB, cough, sorethroat. Denies Chest pain, heart palpitations. Denies abdominal pain, denies constipation, Denies nausea, vomiting, diarrhea, or constipation. Denies LE swelling. Physical Exam: VITALS:Temp Av.7 ??F (38.2 ??C) Min: 100.7 ??F (38.2 ??C) Max: 100.7 ??F (38.2 ??C) BP Min: 104/50 Max: 127/79 Pulse Av.8 Min: 86 Max: 134 Heart Rate (Monitor) Av Min: 86 Max: 119 Resp Av.6 Min: 16 Max: 24 SpO2 Av.7 % Min: 95 % Max: 100 % No intake/output data recorded. Stool Amount: Small (07/23/24 0815) Weight: Wt Readings from Last 1 Encounters: 07/23/24 265 lb (120.2 kg) General: well developed well nourished, alert, [...] Positive Bowel sounds, no organomegaly appreciated Extremities: left top of foot w/ healed incision. no edema, no clubbing or cyanosis Neuro: Alert and orient x 3. Moves all extremities well. No neurological deficits noted on exam. Gait not tested Data Review: XR CHEST SINGLE VIEW PORTABLE Result Date: 06/27/2024 IMPRESSION: No acute pulmonary process. Lab Results Component Value Date WBC 6.89 07/23/2024 HEMOGLOBIN 16.1 (H) 07/23/2024 HEMATOCRIT 48.5 (H) 07/23/2024 PLATELETCNT 379 07/23/2024 MCV 88.8 07/23/2024 Lab Results Component Value Date SODIUM 136 07/23/2024 POTASSIUM 3.9 07/23/2024 CHLORIDE 103 07/23/2024 CO2VEN 17 (L) 07/23/2024 ANIONGAP 19.9 (H) 07/23/2024 GLUCOSE 110 (H) 07/23/2024 BUN 13 07/23/2024 CREATININE 1.61 (H) 07/23/2024 BCRATIO8 8 (L) 07/23/2024 TOTALPROTEIN 8.7 (H) 07/23/2024 ALBUMIN 5.0 07/23/2024 CALCIUM 10.8 (H) 07/23/2024 TBIL 1.0 07/23/2024 SGOTAST 25 07/23/2024 SGPTALT 69 (H) 07/23/2024 ALKALINEPHO 85 07/23/2024 GFRNA 39 (L) 07/23/2024 GFRA 48 (L) 07/23/2024 No results found for: PHARTERIAL , PO2ART , XGP1PGM , CO2ART , O2ART No results found [...] Diarrhea due to drug Immunotherapy Dizziness Dehydration Obesity Non-alcoholic fatty liver disease Miscarriage Miscarriage Melanoma (HCC) Depression Plan: Dehydration-d/t N/V/D Supportive therapy with iv hydration ALEXX-likely prerenal d/t dehydration from immunotherapy High anion gap metabolic acidosis Bun 13, Cr 1.61, c02 17 started on iv hydration and follow labs Diarrhea Check cdiff and stool studies if further episodes Depression Resume home meds when able to tolerate. Advance Care Planning: Aggregate face to face time discussing end of life advance care planning with patient and/or family and/or Power of Software Quality Assurance Analyst approximately 16 minutes. Discussed CPR/Intubation/Treatment Goals/Quality of life/Intensity of Care. Patient desires: Full Code VTE Prophylaxis: Lovenox 40mg Q24h Thank you very much for allowing the [facility] to participate in the care of this patient By: Esteban Mcgovern APRN, CNP, 07/23/2024, 3:19 PM CDT Primary Care Physician: KELLEN CHU MD Cosigned by Rebeca Andrea MD at 08/02/2024 8:20 AM CDT documented in this encounter ED Notes * Martir Ramires RN - 07/23/2024 3:25 PM CDT to floor per stretcher with registered dietician. pt's iv site to left hand remains intact and is infusing saline bolus without difficulty. pt is thankful for care. * Martir Ramires RN - 07/23/2024 3:05 PM CDT pt understands she will be admitted and time frame to go to the floor. she denies new questions or c/o's. resp unlabored. pt has speci hat to collect stool sample when available. iv fluids infusing without difficulty. * Martir Ramires RN - 07/23/2024 2:00 PM CDT pt awaiting disposition. pt is laying quietly on her side. resp unlabored. * Martir Ramires RN - 07/23/2024 1:00 PM CDT awaiting urine test result. pt's iv fluids infused without difficulty and she denies new c/o's. * Martir Ramires RN - 07/23/2024 12:00 PM CDT encouraging pt to attempt urine sample collection. she denies new questions or c/o's. resp remain unlabored. * Martir Ramires RN - 07/23/2024 11:00 AM CDT pt understands she will be having repeat lactic acid level she denies new c/o's warm blanket given again resp unlabored. she denies nausea. * Martir Ramires RN - 07/23/2024 10:00 AM CDT documented 1000ml normal saline infused accidentally. pt actually rec'd 2600ml as ordered. * Martir Ramires RN - 07/23/2024 9:35 AM CDT explained purpose and common side effects of medications ordered. iv fluids infusing without difficulty. tylenol for elevated temp given. she denies new questions or c/o's. resp unlabored. * Martir Ramires RN - 07/23/2024 8:55 AM CDT second blood culture obtained. iv fluids infusing without difficulty. warm blanket given. estimatedtime frame in er. call light on rail no new questions. * Hayden Angel MD - 07/23/2024 8:44 AM CDTAssociated Order(s): Critical Care Chief Complaint Patient presents with Fatigue Patient is a 24-year-old white female with history of melanoma on the foot, status post immunotherapy for melanoma, presents with generalized weakness, fever, nausea vomiting and diarrhea. Patient states she has similar reactions to her immunotherapy in the past. Patient states she has difficulty keeping any fluids down. She denies chest pain or shortness of breath. Fatigue Current Facility-Administered Medications Medication Dose Route Frequency Provider Last Rate Last Admin sodium chloride 0.9 % 1,000 mL IV bolus Intravenous Once Hayden Angel MD Current Outpatient Medications Medication Sig Dispense Refill diphenoxylate-atropine (LOMOTIL) 2.5-0.025 MG Tablet Take 1 Tablet by mouth 4 times daily as neededfor Diarrhea. 60 Tablet 2 24 1-20 MG-MCG(24) Tablet Take 1 Tablet by mouth daily. omeprazole (PriLOSEC) 40 MG CAPSULE DELAYED RELEASE TAKE 1 CAPSULE BY MOUTH DAILY 90 Capsule 0 ondansetron (Zofran) 4 MG Tablet Take 4 mg by mouth every 8 hours as needed for Nausea - 1st line. ondansetron (ZOFRAN-ODT) 8 MG TABLET DISPERSIBLE Take 1 Tablet by mouth every 8 hours as needed forNausea - 1st line. 30 Tablet 2 potassium chloride SA (KLORCON M) 20 MEQ Tablet Controlled Release Take 3 Tablets by mouth 2 times daily. 90 Tablet 2 predniSONE (DELTASONE) 20 MG Tablet Take 4 Tablets by mouth daily. 90 Tablet 2 No Known Allergies Past Medical History Positives [...] Social Determinants of Health Financial Resource Needs: Low Risk (06/27/2024) Overall Financial Resource Strain (CARDIA) Difficulty of Paying Living Expenses: Not hard at all Food Insecurity Needs: No Food Insecurity (06/27/2024) Hunger Vital Sign Worried About Running Out of Food in the Last Year: Never true Ran Out of Food in the Last Year: Never true Transportation Needs: No Transportation Needs (06/27/2024) PRAPARE - Transportation Lack of Transportation (Medical): No Lack of Transportation (Non-Medical): No Physical Activity: Sufficiently Active (06/27/2024) Exercise Vital Sign Days of Exercise per Week: 5 days Minutes of Exercise per Session: 90 min Stress: Stress Concern Present (06/27/2024) [employer] - Occupational Stress Questionnaire Feeling of Stress : To some extent Social Integration: Socially Isolated (06/27/2024) Social Connection and Isolation Panel [NHANES] Frequency of Communication with Friends and Family: More than three times a week Frequency of Social Gatherings with Friends and Family: More than three times a week Attends Sikh Services: Never Active Member of Clubs or Organizations: No Attends Club or Organization Meetings: Never Marital Status: Never Intimate Partner Violence: Not At Risk (06/27/2024) Humiliation, Afraid, Rape, and Kick questionnaire Fear of Current or Ex-Partner: No Emotionally Abused: No Physically Abused: No Sexually Abused: No Housing Stability: Low Risk (06/27/2024) Housing Stability Vital Sign Unable to Pay for Housing in the Last Year: No Number of Times Moved in the Last Year: 1 Homeless in the Last Year: No BP 105/55 Pulse 86 Temp (!) 100.7 ??F (38.2 ??C) (Tympanic) Resp 17 Ht 5' 6 (1.676 m) Wt265 lb (120.2 kg) LMP 07/02/2024 SpO2 97% BMI 42.77 kg/m?? Review of Systems Constitutional: Negative. HENT: Negative. Eyes: Negative. Respiratory: Negative. Cardiovascular: Negative. Gastrointestinal: Positive for diarrhea, nausea and vomiting. Genitourinary: Negative. Neurological: Negative. All other systems reviewed and are negative. Physical Exam Vitals and nursing note reviewed. Constitutional: Appearance: She is obese. HENT: Head: Normocephalic. Nose: Nose normal. Mouth/Throat: Mouth: Mucous membranes are moist. Cardiovascular: Rate and Rhythm: Tachycardia present. Pulses: Normal pulses. Pulmonary: Effort: Pulmonary effort is normal. Abdominal: General: Abdomen is flat. Tenderness: There is no guarding. Musculoskeletal: General: Normal range of motion. Cervical back: Normal range of motion. Skin: General: Skin is warm. Capillary Refill: Capillary refill takes 2 to 3 seconds. Neurological: General: No focal deficit present. Mental Status: She is alert. Critical Care Performed by: Hayden Angel MD Authorized by: Hayden Angel MD Critical care provider statement: Critical care time (minutes): 30 Critical care was time spent personally by me on the following activities: Ordering and performing treatments and interventions, ordering and review of laboratory studies, ordering and review of radiographic studies, re-evaluation of patient's condition and review of old charts Recent Results (from the past 24 hour(s)) CMP (Comprehensive Metabolic Panel) Result Value Ref Range SODIUM 136 136 - 145 mmol/L POTASSIUM 3.9 3.5 - 5.1 mmol/L CHLORIDE 103 98 - 107 mmol/L CO2, VENOUS 17 (L) 22 - 30 mmol/L ANION GAP 19.9 (H) <18.0 mmol/L GLUCOSE 110 (H) 70 - 99 mg/dL BUN 13 5 - 18 mg/dL CREATININE, BLOOD 1.61 (H) 0.60 - 1.00 mg/dL BUN/CREATININE RATIO 8 (L) 12 - 20 ratio TOTAL PROTEIN 8.7 (H) 6.3 - 8.2 g/dL ALBUMIN 5.0 3.5 - 5.0 g/dL A/G RATIO 1.4 1.0 - 2.2 CALCIUM 10.8 (H) 8.7 - 10.5 mg/dL T BILI 1.0 0.2 - 1.2 mg/dL SGOT (AST) 25 5 - 34 U/L SGPT (ALT) 69 (H) 0 - 55 U/L ALKALINE PHOSPHATASE 85 40 - 150 U/L GFR, ESTIMATED 46 (L) >=60 GFR, EST. 48 (L) >=60 GFR, EST. NONAFRICAN 39 (L) >=60 Lactic Acid (Lactate) Result Value Ref Range LACTIC ACID 2.7 (H) 0.7 - 2.0 mmol/L CBC with Auto Differential Result Value Ref Range WBC 6.89 4.00 - 12.00 10(3)/mcL RBC 5.46 (H) 3.80 - 5.30 10(6)/mcL HEMOGLOBIN (HGB) 16.1 (H) 12.0 - 15.8 g/dL HEMATOCRIT (HCT) 48.5 (H) 36.0 - 47.0 % MCV 88.8 82.0 - 96.0 fL MCH 29.5 26.0 - 34.0 pg MCHC 33.2 31.0 - 36.0 g/dL PLATELET COUNT 379 140 - 440 10(3)/mcL RDW 14.2 11.8 - 15.5 % MPV 10.1 9.7 - 12.4 fL NEUTROPHILS 76.8 (H) 47.0 - 73.0 % LYMPHOCYTES 13.1 (L) 18.0 - 42.0 % MONOCYTES 9.6 4.0 - 12.0 % EOSINOPHILS 0.1 0.0 - 5.0 % BASOPHILS 0.4 0.0 - 1.0 % ABSOLUTE NEUTROPHILS 5.29 1.60 - 7.70 10(3)/mcL ABSOLUTE LYMPHOCYTES 0.90 (L) 1.30 - 3.20 10(3)/mcL ABSOLUTE MONOCYTES 0.66 0.20 - 1.00 10(3)/mcL ABSOLUTE EOSINOPHIL 0.01 0.00 - 0.40 10(3)/mcL ABSOLUTE BASOPHILS 0.03 0.00 - 0.10 10(3)/mcL NRBC PER 100 WBC 0 RSV,SARS-COV-2,INFLUENZA A&B BY PCR Specimen: Nasopharyngeal; Swab Result Value Ref Range FLU A Negative Negative, Error FLU B Negative Negative RESP SYNC VIRUS Negative Negative SARSCOV2 NOT DETECTED (Reference Range for this test is Not Detected) Lactic Acid (Lactate) Result Value Ref Range LACTIC ACID 1.3 0.7 - 2.0 mmol/L Urinalysis with Reflex Result Value Ref Range SPECIFIC GRAVITY 1.015 1.003 - 1.030 URINE PH 6.0 5.0 - 9.0 WBC ESTERASE Negative Negative NITRITE Negative Negative PROTEIN, RANDOM URINE 30 mg/dL (A) Negative URINE GLUCOSE, QUAL Negative Negative URINE KETONES Negative Negative UROBILINOGEN Normal Normal mg/dL URINE BLOOD 10 /uL (A) Negative chidi/ul URINALYSIS COLOR Yellow URINALYSIS CLARITY Clear WBC (Urine) 11-20 (A) Negative, 0-5 /hpf URINE RBC'S 3-5 (A) Negative, 0-2 /hpf EPITHELIAL CELLS Moderate amount /lpf BACTERIA, URINE Few (A) Negative /hpf CASTS 5-10/LPF Hyaline Casts (A) Negative, 0-2/lpf, 3-5/lpf, 6-10/lpf, 11- 20/lpf, >20/lpf /lpf Imaging Results None Medical Decision Making Sepsis Reassessment of Volume Status and Tissue Perfusion I performed a sepsis re-evaluation and tissue perfusion exam 07/23/2024 at 2:24 PM CDT. Hayden Angel MD Sepsis Reassessment of Volume Status and Tissue Perfusion BP 105/55 Pulse 86 Temp (!) 100.7 ??F (38.2 ??C) (Tympanic) Resp 17 Ht 5' 6 (1.676 m) Wt265 lb (120.2 kg) LMP 07/02/2024 SpO2 97% BMI 42.77 kg/m?? Heart: Normal auscultation Lungs: normal air entry Peripheral Perfusion: Normal Patient is stable she does not have sepsis as lab evaluation is negative for sepsis. Patient has dehydration secondary to side effects of her immunotherapy. Patient was treated with IV hydration, shewas admitted to the hospitalist for further observation and IV hydration Recent Labs Units 07/23/24 1128 07/23/24 0820 LACTICA mmol/L 1.3 2.7* Sepsis re-evaluation was performed. 07/23/2024 at 2:24 PM CDT. Clinical Impression 1. Dehydration Disposition: Admit ED Course as of 07/23/24 1426 Mon Jul 23, 2024 1421 Patient reviewed, labs reviewed. She has elevated creatinine compared to her baseline. Patientstates as soon as the IV infusion has stopped she started feeling sick to the stomach again and hadan episode of diarrhea. Advised patient that she has dehydration with mild renal impairment. Advised admission for IV hydration. Discussed with hospitalist nurse-practitioner Rick Mcgovern who accepted patient on behalf of Dr. James [KS] ED Course User Index [KS] Hayden Angel MD Kalugotla N Shivaram, MD * Martir Ramires RN - 07/23/2024 8:30 AM CDT calling supply chain for long needle for infusaport access. pt is difficult peripheral stick for blood cultures. * Mikala Lopez RN - 07/23/2024 8:06 AM CDT Patient ambulatory to triage with c/o generalized weakness, diarrhea and vomiting. Reports she has a history of melanoma which she is actively getting treatment for. Last treatment 07/17. States the day after, she started experiencing some SOB that has subsided. Reports since then, she has had diarrh ea, vomiting and weakness which has been progressive. Concerned she may be dehydrated. Denies knownfever at home. Current temp 100.7. Sepsis care initiated. documented in this encounter Miscellaneous Notes * Inter-Facility Transfer Acceptance Note - Elliott Hdz RN - 07/24/2024 6:33 PM CDT Pt. Had discharge instructions taught by Arline GIRALDO. Pt. Taken off the floor with all patient belongings. * Plan of Care - Elliott Hdz RN - 07/24/2024 2:45 PM CDT Problem: Adult Inpatient Plan of Care Goal: Plan of Care Review Outcome: Outcome Achieved Goal: Optimal Comfort and Wellbeing Outcome: Outcome Achieved Goal: Readiness for Transition of Care Outcome: Outcome Achieved Problem: Fluid Volume Deficit Goal: Fluid Balance Outcome: Outcome Achieved Problem: Nausea and Vomiting Goal: Nausea and Vomiting Relief Outcome: Outcome Achieved * Inter-Facility Transfer Acceptance Note - Elliott Hdz RN - 07/24/2024 9:32 AM CDT Pt. Is resting in bed with call light in reach and IV fluids infusing. Pt. Has no complaints of pain at this time. Pt. Full assessment complete see flow sheet. * Plan of Care - Loida Antonio RN - 07/24/2024 3:19 AM CDT Problem: Adult Inpatient Plan of Care Goal: Plan of Care Review Outcome: Ongoing (see interventions/notes) Flowsheets (Taken 07/24/2024315) Plan of Care Reviewed With: patient Progress: progress toward functional goals is gradual Today's Goal: afebrile Outcome Evaluation: temps 102.5-tylenol given-temp down to 100.8. Does the patient need assistance with discharge and/or transitioning to the next level of care?: No, no needs anticipated Goal: Optimal Comfort and Wellbeing Outcome: Ongoing (see interventions/notes) Intervention: Monitor Pain and Promote Comfort Flowsheets (Taken 07/23/20242019) Pain Management Interventions: care clustered diversional activity provided pain management plan reviewed with patient/caregiver position adjusted quiet environment facilitated relaxation techniques promoted Intervention: Provide Person-Centered Care Flowsheets (Taken 07/23/20242019) Trust Relationship/Rapport: care explained choices provided emotional support provided empathic listening provided questions answered questions encouraged reassurance provided respect patient/family decisions provided safe/supportive environment facilitated nonverbal communication acknowledged therapeutic presence provided thoughts/feelings acknowledged Goal: Readiness for Transition of Care Outcome: Ongoing (see interventions/notes) Problem: Fluid Volume Deficit Goal: Fluid Balance Outcome: Ongoing (see interventions/notes) Intervention: Monitor and Manage Hypovolemia Flowsheets (Taken 07/24/2024315) Fluid/Electrolyte Management: fluids provided Problem: Nausea and Vomiting Goal: Nausea and Vomiting Relief Outcome: Ongoing (see interventions/notes) Intervention: Prevent and Manage Nausea and Vomiting Flowsheets (Taken 07/24/2024315) Fluid/Electrolyte Management: fluids provided Nausea/Vomiting Interventions: nausea triggers minimized Environmental Support: calm environment promoted environmental consistency promoted caregiver consistency promoted personal routine supported rest periods encouraged distractions minimized * Interdisciplinary - Mara Tabor RN - 07/23/2024 3:40 PM CDT Pt oriented to room. Ambulated from stretcher to bed. Admission complete. Low fall risk at this time. Educated pt on fall prevention, call light use, and current MD orders. Pt resting with call lightin reach. Admission complete. VSS. * Interdisciplinary - Mara Tabor RN - 07/23/2024 3:39 PM CDT Initial Skin Assessment Patient assessed with 2nd RN mikme Wounds noted: melanoma to top of left foot PRESSURE INJURY AND MOISTURE MANAGEMENT RECOMMENDATIONS: Moisture Management: Patient is Continent and has no moisture problems at this time Pressure Injury Prevention Interventions: Patient is independent in Room and/or Bed Specialty Surface Selection: Moisture Score: 4-->rarely moist Mobility Score: 4-->no limitation Total Rubens Score: 22 Patient has intact skin on the pelvis and trunk: Bed Selection based on Rubens Moisture and Mobility: Moisture 4: Mobility 3 or 4: No Specialty Bed Indicated Wound care: n/a MARA TABOR RN * Interdisciplinary - Seema Mcgovern RN - 07/23/2024 11:05 AM CDT OnCall Sepsis Note Sepsis BPA alert received. Chart Reviewed, no action needed due to: Sepsis not suspected at this time documented in this encounter Plan of Treatment Upcoming Encounters Date Type Department Care Team (Late st Contact Info) Description 11/15/2024 1:00 PM METER TESTER Lab [facility] Laboratory Services [address] [facility] [place] [address] Markus Finley MD [address] [place] [address] 11/15/2024 2:00 PM METER TESTER Appointment [facility] MRI [address] [facility] [place] [address] Markus Finley MD [address] [place] [address] Discharge Disposition: Discharged to home or Selfcare Scheduled Orders Name Type Priority Associated Diagnoses Orde r Schedule Pulse Oximetry, Spot PFT Routine WITH VITALS until discontinued starting 07/23/2024 CBC with Diff Lab Routine Dehydration ALEXX (acute kidney injury) (HCC) Expected: 07/31/2024, Expires: 09/23/2024 BMP with Ca, Total Lab Routine Dehydration ALEXX (acute kidney injury) (HCC) Expected: 07/31/2024, Expires: 09/23/2024 documented as of this encounter Procedures Procedure Name Priority Date/Time Associated Diagnosis Comments CULTURE, BLOOD Routine 07/24/2024 12:52 PM CDT BASIC METABOLIC PANEL W/ CALCIUM TOTAL STAT 07/24/2024 12:52 PM CDT MANUAL DIFFERENTIAL Routine 07/24/2024 5 :48 AM CDT CBC WITH AUTO DIFFERENTIAL Routine 07/24/2024 5:48 AM CDT COMPLETE BLOOD COUNT (CBC) WITH DIFF Routine 07/24/2024 5:48 AM CDT BASIC METABOLIC PANEL W/ CALCIUM TOTAL Routine 07/24/2024 5:48 AM CDT C. DIFFICILE BY PCR Routine 07/24/2024 1 2:49 AM CDT C. DIFF BY PCR Routine 07/24/2024 12:49 AM CDT CULTURE, STOOL Routine 07/24/2024 12:49 AM CDT RHYTHM STRIP 07/24/2024 12:00 AM CDT RHYTHM STRIP 07/24/2024 12:00 AM CDT URINALYSIS REFLEX IF INDICATED BY ABNORMAL RESULTS STAT 07/23/2024 12:31 PM CDT UR TEST QUAL Routine 07/23/2024 12:31 PM CDT LACTIC ACID (LACTATE) STAT 07/23/2024 11:28 AM CDT RSV,SARS-COV-2,INFLUE NZA A&B BY PCR STAT 07/23/2024 8:59 AM CDT CULTURE, BLOOD Routine 07/23/2024 8:55 AM CDT CRITICAL CARE Routine 07/23/2024 8:44 AM CDT CBC WITH AUTO DIFFERENTIAL STAT 07/23/2024 8:20 AM CDT LACTIC ACID (LACTATE) STAT 07/23/2024 8:20 AM CDT CULTURE, BLOOD STAT 07/23/2024 8:20 AM CDT CMP (COMPREHENSIVE METABOLIC PANEL) STAT 07/23/2024 8:20 AM CDT COMPLETE BLOOD COUNT (CBC) WITH DIFF STAT 07/23/2024 8:20 AM CDT EKG 12 LEAD STAT 07/23/2024 8:15 AM CDT RHYTHM STRIP 07/23/2024 12:00 AM CDT RHYTHM STRIP 07/23/2024 12:00 AM CDT RHYTHM STRIP 07/23/2024 12:00 AM CDT EKG SCAN 07/23/2024 12:00 AM CDT documented in this encounter Results * Culture, Blood (07/24/2024 12:52 PM CDT) Only the most recent of3 resultswithin the time period is included. CULTURE RESULTS NO GROWTH WITHIN 5 DAYS, FINAL RESULT 07/30/2024 3:25 PM CDT [facility] Culture BLOOD SPECIMEN / Unknown Venipuncture / Unknown 07/24/2024 12:52 PM CDT 07/24/2024 1:46 PM CDT Narrative [facility] - 07/30/2024 3:25 PM CDT [Auto-resulted by a batch job.] us Lee Lan MD MICROBIOLOGY - GENERAL O RDERABLES Edited Result - Final [facility] [address] [place] [address], [place] * (ABNORMAL) BMP (07/24/2024 12:52 PM CDT) Only the most recent of2 resultswithin the time period is included. SODIUM 134(L) 136 - 145 mmol/L 07/24/2024 1:[address] [facility] POTASSIUM 2.4(LL) 3.5 - 5.1 mmol/L 07/24/2024 1:30 PM CDT [facility] CHLORIDE 99 98 - 107 mmol/L 07/24/2024 1:30 PM CDT [facility] CO2, VENOUS 18(L) 22 - 30 mmol/L 07/24/2024 1:30 PM CDT [facility] ANION GAP 19.4(H) <18.0 mmol/L 07/24/2024 1:30 PM CDT [facility] GLUCOSE 94 70 - 99 mg/dL 07/24/2024 1:30 PM CDT [facility] BUN 18 5 - 18 mg/dL 07/24/2024 1:30 PM CDT [facility] CREATININE, BLOOD 1.36(H) 0.60 - 1.00 mg/dL 07/24/2024 1:30 PM CDT [facility] BUN/CREATININE RATIO 13 12 - 20 ratio 07/24/2024 1:30 PM CDT [facility] CALCIUM 9.2 8.7 - 10.5 mg/dL 07/24/2024 1:30 PM CDT [facility] GFR, ESTIMATED 56(L) >=60 07/24/2024 1:30 PM CDT [facility] Comment: Creatinine Clearance is the preferred criteria for selecting drug dose adjustments in renally impaired patients. ??The GFR is provided as additional pertinent clinical information. GFR is reported in mL/min/1.73 sq m. Calculation based on the Chronic Kidney Disease Epidemiology Collaboration (CKD- EPI) equation refit without adjustment for race. GFR, EST. 58(L) >=60 024 1:[address] [facility] GFR, EST. NONAFRICAN 48(L) >=60 07/24/2024 1:[address] [facility] Blood BLOOD SPECIMEN / Unknown Venipuncture / Unknown 07/24/2024 12:52 PM CDT 07/24/2024 1:07 PM CDT us Lee Lan MD CHEMISTRY ORDERABLES Fin al Result [facility] [address] [place] [address] * (ABNORMAL) Manual Differential (07/24/2024 5:48 AM CDT) BANDS % 30.0 % 07/24/2024 8:[address] [facility] NEUTROPHILS % 43.0(L) 47.0 - 73.0 % 07/24/2024 8:[address] [facility] LYMPHOCYTES % 14.0(L) 18.0 - 42.0 % 07/24/2024 8:[address] [facility] MONOCYTES % 12.0 4.0 - 12.0 % 07/24/2024 8:[address] [facility] METAMYELOCYTES % 1.0(H) <=0.0 % 07/24/20 8:[address] [facility] NEUTROPHILS ABSOLUTE 4.88 1.60 - 7.70 10(3)/mcL 07/24/2024 8:[address] [facility] LYMPHOCYTES ABSOLUTE 0.94(L) 1.30 - 3.20 10(3)/mcL 07/24/2024 8:[address] [facility] MONOCYTES ABSOLUTE 0.80 0.20 - 1.00 10(3)/mcL 07/24/2024 8:[address] [facility] DOHLE BODIES 3+ 07/24/2024 8:[address] [facility] LARGE PLATELETS 1+ 8:[address] [facility] RBC MORPH STATUS Normal 07/24/20 8:[address] [facility] Blood Venipuncture / Unknown 07/24/2024 5:48 AM CDT 07/24/2024 7:07 AM CDT us Esteban Mcgovern RAW CHEESE WORKER, BROILER SUPERVISOR HEMATOLOGY ORDERABLES F inal Result [facility] [address] [place] [address] * (ABNORMAL) CBC with Auto Differential (07/24/2024 5:48 AM CDT) Only the most recent of2 resultswithin the time period is included. WBC 6.68 4.00 - 12.00 10(3)/mcL 07/24/2024 8:[address] [facility] RBC 5.23 3.80 - 5.30 10(6)/mcL 07/24/2024 8:[address] [facility] HEMOGLOBIN (HGB) 15.5 12.0 - 15.8 g/dL 07/24/2024 8:[address] [facility] HEMATOCRIT (HCT) 47.2(H) 36.0 - 47.0 % 07/24/2024 8:[address] [facility] MCV 90.2 82.0 - 96.0 fL 07/24/2024 8:[address] [facility] MCH 29.6 26.0 - 34.0 pg 07/24/2024 8:[address] [facility] MCHC 32.8 31.0 - 36.0 g/dL 07/24/2024 8:[address] [facility] PLATELET COUNT 323 140 - 440 10(3)/mcL 07/24/2024 8:[address] [facility] RDW 14.5 11.8 - 15.5 % 07/24/2024 8:[address] [facility] MPV 10.1 9.7 - 12.4 fL 07/24/2024 8:[address] [facility] NRBC PER 100 WBC 0 07/24/2024 8:[address] [facility] RESULTS ARE CONSISTENT WITH PERIPHERAL SMEAR REVIEW Yes 07/24/2024 8:[address] [facility] Blood Venipuncture / Unknown 07/24/2024 5:48 AM CDT 07/24/2024 7:07 AM CDT us Esteban Mcgovern APRN, BROILER SUPERVISOR HEMATOLOGY ORDERABLES F inal Result Performing Organization Address City/[facility]/ZIP Co de Phone Number [facility] [address] [place] [address] * C. DIFF BY PCR (07/24/2024 12:49 AM CDT) Pathologist [facility] C DIFF TOXIN DNA BY PCR Negative Negative, Invalid 07/24/2024 1:[address] [facility] Other STOOL SPECIMEN / Unknown Non-Phlebotomy Collection / Unknown 07/24/2024 12:49 AM CDT 07/24/2024 12:53 AM CDT us Esteban Mcgovern APRN, BROILER SUPERVISOR MICROBIOLOGY - GENERAL ORDERABLES Final Result [facility] [address] [place] [address] * Culture, Stool (07/24/2024 12:49 AM CDT) CULTURE RESULTS NO SALMONELLA, SHIGELLA OR E COLI 0157 ISOLATED 07/25/2024 12:12 PM CDT [facility] CULTURE RESULTS NEGATIVE FOR CAMPYLOBACTER ANTIGEN 07/25/2024 12:12 PM CDT [facility] CULTURE RESULTS SHIGA TOXIN 1 AND SHIGA TOXIN 2 NOT DETECTED 07/25/2024 12:12 PM CDT [facility] CULTURE RESULTS Heavy Mixed taye 07/25/2024 12:12 PM CDT [facility] Comment:PROBABLE USUAL TAYE FOR THIS SPECIMEN SOURCE Culture STOOL SPECIMEN / Unknown Non-Phlebotomy Collection / Unknown 07/24/2024 12:49 AM CDT 07/24/2024 12:53 AM CDT us Esteban Mcgovern RAW CHEESE WORKER, BROILER SUPERVISOR MICROBIOLOGY - GENERAL ORDERABLES Final Result Performing Organization Address City/[facility]/ZIP Co de Phone Number [facility] [address] [place] [address], [place] * RHYTHM STRIP (07/24/2024 12:00 AM CDT) Only the most recent of5 resultswithin the time period is included. 07/24/2024 us Provider Scan IMG ECG ORDERABLES Final Result Performing Organization Address City/[facility] Co de Phone Number RESULTING AGENCY * Ur Test Qual (07/23/2024 12:31 PM CDT) PREG TEST,MONOCLONA L Negative 07/23/2024 10:33 PM CDT [facility] Urine URINE SPECIMEN / Unknown Non-Phlebotomy Collection / Unknown 07/23/2024 12:31 PM CDT 07/23/2024 12:55 PM CDT us Hayden Angel MD URINE ORDERABLES Final R esult Performing Organization Address City/[facility]/ZIP Co de Phone Number [facility] [address] [place] [address] * (ABNORMAL) Urinalysis with Reflex (07/23/2024 12:31 PM CDT) SPECIFIC GRAVITY 1.015 1.003 - 1.030 07/23/2024 1:[address] [facility] URINE PH 6.0 5.0 - 9.0 07/23/2024 1:[address] [facility] WBC ESTERASE Negative Negative 07/23/2024 1:[address] [facility] NITRITE Negative Negative 07/23/2024 1:[address] [facility] PROTEIN, RANDOM URINE 30 mg/dL(A) Negative 07/23/2024 1:[address] [facility] URINE GLUCOSE, QUAL Negative Negative 07/23/2024 1:[address] [facility] URINE KETONES Negative Negative 07/23/2024 1:[address] [facility] UROBILINOGEN Normal Normal mg/dL 07/23/2024 1:[address] [facility] URINE BLOOD 10 /uL(A) Negative chidi/ul 07/23/2024 1:[address] [facility] URINALYSIS COLOR Yellow 07/23/20 1:[address] [facility] URINALYSIS CLARITY Clear 07/23/2024 1:[address] [facility] WBC (Urine) 11-20(A) Negative, 0-5 /hpf 07/23/2024 1:[address] [facility] URINE RBC'S 3-5(A) Negative, 0-2 /hpf 07/23/2024 1:[address] [facility] EPITHELIAL CELLS Moderate amount /lpf 07/23/2024 1:[address] [facility] BACTERIA, URINE Few(A) Negative /hpf 07/23/2024 1:[address] [facility] CASTS 5-10/LPF Hyaline Casts(A) Negative, 0-2/lpf, 3-5/lpf, 6-10/lpf, 11-20/lpf, >20/lpf /lpf 07/23/2024 1:[address] [facility] Urine URINE SPECIMEN / Unknown Non-Phlebotomy Collection / Unknown 07/23/2024 12:31 PM CDT 07/23/2024 12:55 PM CDT Hayden Angel MD URINE ORDERABLES Final R esult Performing Organization Address City/[facility]/ZIP Co de Phone Number [facility] [address] [place] [address] * Lactic Acid (Lactate) (07/23/2024 11:28 AM CDT) Only the most recent of2 resultswithin the time period is included. [facility] LACTIC ACID 1.3 0.7 - 2.0 mmol/L 07/23/2024 11:[address] [facility] Blood Venipuncture / Unknown 07/23/2024 11:28 AM CDT 07/23/2024 11:34 AM CDT Hayden Angel MD CHEMISTRY ORDERABLES Fin al Result Performing Organization Address City/[facility] Co de Phone Number [facility] [address] [place] [address] * RSV,SARS-COV-2,INFLUENZA A&B BY PCR (07/23/2024 8:59 AM CDT) [facility] FLU A Negative Negative, Error 07/23/2024 10:[address] [facility] FLU B Negative Negative 07/23/2024 10:[address] [facility] RESP SYNC VIRUS Negative Negative 10:[address] [facility] SARSCOV2 NOT DETECTED (Reference Range for this test is Not Detected) 07/23/2024 10:[address] [facility] Comment:This test was perfor med by a Reverse Lace Roller PCR Method. Swab NASOPHARYNGEAL SWAB / Unknown Non-Phlebotomy Collection / Unknown 07/23/2024 8:59 AM CDT 07/23/2024 9:58 AM CDT Narrative [facility] - 07/23/2024 10:38 AM CDT This test has not been FDA cleared or approved; the test has been authorized by FDA under an Emergency Use Authorization (EUA) for use by laboratories certified under the CLIA that meet the requirements to perform moderate, high or waived complexity tests. Authorized Fact Sheets about this test for providers and patients are available at: https://www.fda.gov/medical-devices/zlnwnhhjw-rdvxmqmela-dkkiqyc-devices/emergen -us e-authorizations Hayden Angel MD MICROBIOLOGY - GENERAL O RDERABLES Final Result [facility] [address] [place] [address] * Critical Care (07/23/2024 8:44 AM CDT) Narrative Hayden Angel MD - 07/23/2024 8:44 AM CDT Hayden Angel MD ? 07/23/2024 ??2:26 PM Critical Care Performed by: Hayden Angel MD Authorized by: Hayden Angel MD ?? Critical care provider statement: ??Critical care time (minutes): ??30 ??Critical care was time spent personally by me on the following activities: ??Ordering and performing treatments and interventions, ordering and review of laboratory studies, ordering and review of radiographic studies, re-evaluation of patient's condition and review of old charts us Hayden Angel MD PROCEDURE/MINOR SURGICAL ORDERABLES Final Result * (ABNORMAL) CMP (Comprehensive Metabolic Panel) (07/23/2024 8:20 AM CDT) SODIUM 136 136 - 145 mmol/L 07/23/2024 9:22 AM CDT [facility] POTASSIUM 3.9 3.5 - 5.1 mmol/L 07/23/2024 9:22 AM CDT [facility] CHLORIDE 103 98 - 107 mmol/L 07/23/2024 9:22 AM T [facility] CO2, VENOUS 17(L) 22 - 30 mmol/L 07/23/2024 9:22 AM T [facility] ANION GAP 19.9(H) <18.0 mmol/L 07/23/2024 9:22 AM CDT [facility] GLUCOSE 110(H) 70 - 99 mg/dL 07/23/2024 9:22 AM T [facility] BUN 13 5 - 18 mg/dL 07/23/2024 9:22 AM [facility] CREATININE, BLOOD 1.61(H) 0.60 - 1.00 mg/dL 07/23/2024 9:22 AM [facility] BUN/CREATININE RATIO 8(L) 12 - 20 ratio 07/23/2024 9:22 AM T [facility] TOTAL PROTEIN 8.7(H) 6.3 - 8.2 g/dL 07/23/2024 9:22 AM [facility] ALBUMIN 5.0 3.5 - 5.0 g/dL 07/23/2024 9:22 AM [facility] A/G RATIO 1.4 1.0 - 2.2 07/23/2024 9:22 AM [facility] CALCIUM 10.8(H) 8.7 - 10.5 mg/dL 07/23/2024 9:22 AM T [facility] T BILI 1.0 0.2 - 1.2 mg/dL 07/23/2024 9:22 AM T [facility] SGOT (AST) 25 5 - 34 U/L 07/23/2024 9:22 AM T [facility] SGPT (ALT) 69(H) 0 - 55 U/L 07/23/2024 9:22 AM CDT [facility] ALKALINE PHOSPHATASE 85 40 - 150 U/L 07/23/2024 9:[address] [facility] GFR, ESTIMATED 46(L) >=60 07/23/2024 9:[address] [facility] Comment: Creatinine Clearance is the preferred criteria for selecting drug dose adjustments in renally impaired patients. ??The GFR is provided as additional pertinent clinical information. GFR is reported in mL/min/1.73 sq m. Calculation based on the Chronic Kidney Disease Epidemiology Collaboration (CKD- EPI) equation refit without adjustment for race. GFR, EST. 48(L) >=60 [address]24 9:[address] GFR, EST. NONAFRICAN 39(L) >=60 07/23/2024 9:[address] Blood Venipuncture / Unknown 07/23/2024 8:20 AM CDT 07/23/2024 8:59 AM CDT Hayden Angel MD CHEMISTRY ORDERABLES Fin al Result [facility] [place] [address] * EKG 12 LEAD (07/23/2024 8:15 AM CDT) Ventricular Rate 126 BPM EXTERNAL EKG Atrial Rate 126 BPM EXTERNAL EKG P-R Interval 146 ms EXTERNAL EKG QRS Duration 80 ms EXTERNAL EKG Q-T Duration 292 ms EXTERNAL EKG QTC CALCULATION 422 ms EXTERNAL EKG P [place] 33 degrees EXTERNAL EKG R [place] 11 degrees EXTERNAL EKG T [place] 113 degrees EXTERNAL EKG 07/23/2024 8:15 AM CDT Impressions EXTERNAL EKG - 07/24/2024 9:19 AM CDT Sinus tachycardia ST & T wave abnormality, consider lateral ischemia Abnormal ECG No previous ECGs available Confirmed by mEily Hall ([id number]) on 07/24/2024 9:19:48 AM Narrative Procedure Note Emily Hall MD - 07/24/2024 IMPRESSION: Sinus tachycardia ST & T wave abnormality, consider lateral ischemia Abnormal ECG No previous ECGs available Confirmed by Emily Hall ([id number]) on 07/24/2024 9:19:48 AM us Hayden Angel MD IMG ECG ORDERABLES Final Result EXTERNAL EKG * EKG SCAN (07/23/2024 12:00 AM CDT) 07/23/2024 us Provider Scan IMG ECG ORDERABLES Final Result RESULTING AGENCY documented in this encounter Visit Diagnoses Diagnosis Dehydration- Primary Dehydration ALEXX (acute kidney injury) (HCC) Acute kidney failure, unspecified Metastatic melanoma (HCC) Melanoma of skin, site unspecified Morbid obesity (HCC) Morbid obesity Non-alcoholic fatty liver disease Other chronic nonalcoholic liver disease Miscarriage Unspecified spontaneous without mention of complication Melanoma (HCC) Melanoma of skin, site unspecified Depression Depressive disorder, not elsewhere classified documented in this encounter Admitting Diagnoses Diagnosis Dehydration documented in this encounter Administered Medications Inactive Administered Medications - up to 3 most recent administrations Medication Order MAR Action Action Date Dose Rate Site 0.9 % sodium chloride solution at 999 mL/hr, Intravenous, ONCE, 1 dose, On Tue07/23/24 at 0930 New 07/23/2024 9:11 AM CDT 2,600 mL 999 mL/hr 0.9 % sodium chloride solution at 125 mL/hr, Intravenous, CONTINUOUS, Starting on Tue07/23/24 at 1600, Until Tue07/24/24 at 2053 New 07/24/2024 2:10 PM CDT 125 mL/hr New 07/24/2024 4:49 AM CDT 125 mL/hr 07/23/2024 9:56 PM CDT 125 mL/hr acetaminophen (TYLENOL) suppository 650 mg 650 mg, Rectal, EVERY 4 HOURS PRN, Starting on Tue07/23/24 at 1537, Until Tue07/24/24 at 2053, Mild pain or more severe pain if patient requests, Fever, If patient is taking oral intake without complications and both PO/VT orders are active, administer through the oral route. acetaminophen (TYLENOL) tablet 650 mg 650 mg, Oral, EVERY 4 HOURS PRN, Starting on Tue07/23/24 at 1537, Until Tue07/24/24 at 2053, Mild pain or more severe pain if patient requests, Fever, If patient is taking oral intake without complications and both PO/VT orders are active, administer through the oral route. Given 07/23/2024 9:55 PM CDT 650 mg acetaminophen (TYLENOL) tablet 975 mg 975 mg, Oral, ONCE, 1 dose, On Tue07/23/24 at 0830, Maximum dose of acetaminophen is 4000 mg from all sources in 24 hours.Indications:Pain or Fever Given 07/23/2024 9:39 AM CDT 975 mg ondansetron (ZOFRAN) injection 4 mg 4 mg, Intravenous, ONCE, 1 dose, On Tue07/23/24 at 1000 Given 07/23/2024 9:39 AM CDT 4 mg ondansetron (ZOFRAN) injection 4 mg 4 mg, Intravenous, EVERY 6 HOURS PRN, Starting on Tue07/23/24 at 1537, Until Tue07/24/24 at 2053, Nausea - 1st line, 1. First Line Antiemetic. 2. Use Injection only if patient unable to tolerate oral medications. Given 07/24/2024 1:57 PM CDT 4 mg Given 07/23/2024 3:54 PM CDT 4 mg ondansetron (ZOFRAN-ODT) disintegrating tablet 4 mg 4 mg, Oral, EVERY 6 HOURS PRN, Starting on Tue07/23/24 at 1537, Until Tue07/24/24 at 2053, Nausea - 1st line, 1. First Line Antiemetic. 2. Use PO form unless unable to tolerate PO medications, then use Injection pantoprazole (PROTONIX) tablet 40 mg 40 mg, Oral, EVERY MORNING BEFORE BREAKFAST, First dose on Tue07/24/24 at 0730, Until Discontinued, Indications: Symptomatic Gastroesophageal Reflux DiseaseIndications:Symptomatic Gastroesophageal Reflux Disease Given 07/24/2024 9:09 AM CDT 40 mg potassium chloride IVPB 20 mEq 100 mL 20 mEq, Intravenous, ONCE, 1 dose, On Tue07/24/24 at 1430, Administer over 2 Hours, Infuse each 20 mEq over 2 hours for a total dose of 40 mEq New Bag 07/24/2024 2:10 PM CDT 20 mEq potassium chloride IVPB 20 mEq 100 mL 20 mEq, Intravenous, ONCE, 1 dose, On Tue07/24/24 at 1630, Administer over 2 Hours, Infuse each 20 mEq over 2 hours for a total dose of 40 mEq New Bag 07/24/2024 4:30 PM CDT 20 mEq sodium chloride 0.9 % 1,000 mL IV bolus Intravenous, ONCE, 1 dose, On Tue07/23/24 at 0830, Administer over 1 Hours New Bag 07/23/2024 9:00 AM CDT 1000 mL/hr sodium chloride 0.9 % 1,000 mL IV bolus Intravenous, ONCE, 1 dose, On Tue07/23/24 at 1430, Administer over 0.5 Hours New Bag 07/23/2024 3:04 PM CDT 2000 mL/hr documented in this encounter Active and Recently Administered Medications Times are shown in CDT. Scheduled Medication Order 07/22/2024 07/23/2024 07/24/2024 0.9 % sodium chloride solution (COMPLETED) at 999 mL/hr, Intravenous, ONCE, 1 dose, On Tue07/23/24 at 0930 0911 (New Bag - Provider: Martir Ramires RN)1000 (Stopped - Provider: Martir Ramires RN - Comment: pt actually rec'd 2600ml per order.) acetaminophen (TYLENOL) tablet 975 mg (COMPLETED) 975 mg, Oral, ONCE, 1 dose, On Tue07/23/24 at 0830, Maximum dose of acetaminophen is 4000 mg from all sources in 24 hours. 0939 (Given - Provider: Martir Ramires RN) enoxaparin (LOVENOX) injection 40 mg 40 mg, Subcutaneous, EVERY 12 HOURS SCHEDULED, First dose on Tue07/23/24 at 2100, Until Discontinued 2100 (Not Given - Provider: Loida Antonio RN - Reason: Patient/family refused) 0900 (Not Given - Provider: Elliott Hdz RN - Reason: Patient/family refused) ondansetron (ZOFRAN) injection 4 mg (COMPLETED) 4 mg, Intravenous, ONCE, 1 dose, On Tue07/23/24 at 1000 0939 (Given - Provider: Martir Ramires RN) pantoprazole (PROTONIX) tablet 40 mg 40 mg, Oral, EVERY MORNING BEFORE BREAKFAST, First dose on Tue07/24/24 at 0730, Until Discontinued, Indications: Symptomatic Gastroesophageal Reflux Disease 09 (Given - Provider: Elliott Hdz RN) potassium chloride IVPB 20 mEq 100 mL (COMPLETED)(Linked Group 1) 20 mEq, Intravenous, ONCE, 1 dose, On Tue07/24/24 at 1430, Administer over 2 Hours, Infuse each 20 mEq over 2 hours for a total dose of 40 mEq 1410 (New Bag - Provider: Mara Tabor RN)1610 (Stopped - Provider: Elliott Hdz RN) potassium chloride IVPB 20 mEq 100 mL (COMPLETED)(Linked Group 1) 20 mEq, Intravenous, ONCE, 1 dose, On Tue07/24/24 at 1630, Administer over 2 Hours, Infuse each 20 mEq over 2 hours for a total dose of 40 mEq 1630 (New Bag - Provider: Elliott Hdz RN)1830 (Stopped - Provider: Elliott Hdz RN) sodium chloride 0.9 % 1,000 mL IV bolus (COMPLETED) Intravenous, ONCE, 1 dose, On Tue07/23/24 at 0830, Administer over 1 Hours 0900 (New Bag - Provider: Martir Ramires RN)1000 (Stopped - Provider: Martir Ramires RN) sodium chloride 0.9 % 1,000 mL IV bolus (COMPLETED) Intravenous, ONCE, 1 dose, On Tue07/23/24 at 1430, Administer over 0.5 Hours 1504 (New Bag - Provider: Martir Ramires RN)1525 (Infusing on Transfer - Provider: Martir Ramires RN)1534 (Stopped - Provider: Mara Tabor, KRISTAL) Continuous Medication Order 07/22/2024 07/23/2024 07/24/2024 0.9 % sodium chloride solution at 125 mL/hr, Intravenous, CONTINUOUS, Starting on Tue07/23/24 at 1600, Until Tue07/24/24 at 2054 1555 (New Bag - Provider: Mara Tabor RN)2155 (Stopped - Provider: Loida Antonio RN)2156 (New Bag - Provider: Loida Antonio RN) 0448 (Stopped - Provider: Loida Antonio RN)0449 (New Bag - Provider: Loida Antonio RN)1410 (New Bag - Provider: Mara Tabor RN)1833 (Stopped - Provider: Elliott Hdz RN) PRN Medication Order 07/22/2024 07/23/2024 07/24/2024 acetaminophen (TYLENOL) suppository 650 mg(Linked Group 2) 650 mg, Rectal, EVERY 4 HOURS PRN, Starting on Tue07/23/24 at 1537, Until Tue07/24/24 at 2053, Mild pain or more severe pain if patient requests, Fever, If patient is taking oral intake without complications and both PO/VT orders are active, administer through the oral route. 2154 (See Alternative - Provider: Loida Antonio RN) acetaminophen (TYLENOL) tablet 650 mg(Linked Group 2) 650 mg, Oral, EVERY 4 HOURS PRN, Starting on Tue07/23/24 at 1537, Until Tue07/24/24 at 2053, Mild pain or more severe pain if patient requests, Fever, If patient is taking oral intake without complications and both PO/VT orders are active, administer through the oral route. 2154 (Given - Provider: Loida Antonio RN) calcium carbonate (TUMS) chewable tablet 1,000 mg 1,000 mg, Oral, EVERY 8 HOURS PRN, Starting on Tue07/23/24 at 1537, Until Tue07/24/24 at 2053, Heartburn, Indigestion HYDROcodone-acetaminophen (NORCO) 5-325 MG per tablet 1 Tablet 1 Tablet, Oral, EVERY 4 HOURS PRN, Starting on Tue07/23/24 at 1537, Until Tue07/24/24 at 2053, Moderate pain or more severe pain if patient requests, Maximum dose of acetaminophen is 4000 mg from all sources in 24 hours.If pain not effectively managed, then contact provider to discuss possibly 1) adding scheduled opioid dosing or non-opioid pain treatments, 2) increasing dosage, or 3) changing to SQL TECH. magnesium hydroxide (MILK OF MAGNESIA) 400 MG/5ML suspension 30 mL 30 mL, Oral, DAILY PRN, Starting on Tue07/23/24 at 1537, Until Tue07/24/24 at 2053, Constipation - 3rd line, Magnesium hydroxide 400 mg/5 ml = 166.7 mg elemental magnesium/5ml. Hold for loose stools (loose, liquid, mucoid, soft, watery stool that takes the shape of the container) or greater than 2 moderate or larger stools in 24hrs melatonin tablet 3 mg 3 mg, Oral, NIGHTLY PRN, Starting on Tue07/23/24 at 1537, Until Tue07/24/24 at 2053, Other, Sleep nicotine (NICODERM CQ) 21 MG/24HR patch 1 Patch 1 Patch, Transdermal, DAILY PRN, Starting on Tue07/23/24 at 1537, Until Tue07/24/24 at 2053, Administer over 24 Hours, Other, Nicotine dependency, For disposal of medication AND containers- black bin ondansetron (ZOFRAN) injection 4 mg(Linked Group 3) 4 mg, Intravenous, EVERY 6 HOURS PRN, Starting on Tue07/23/24 at 1537, Until Tue07/24/24 at 2053, Nausea - 1st line, 1. First Line Antiemetic. 2. Use Injection only if patient unable to tolerate oral medications. 1554 (Given - Provider: Mara Tabor RN) 1357 (Given - Provider: Elliott Hdz, KRISTAL) ondansetron (ZOFRAN-ODT) disintegrating tablet 4 mg(Linked Group 3) 4 mg, Oral, EVERY 6 HOURS PRN, Starting on Tue07/23/24 at 1537, Until Tue07/24/24 at 2053, Nausea - 1st line, 1. First Line Antiemetic. 2. Use PO form unless unable to tolerate PO medications, then use Injection 1554 (See Alternative - Provider: Mara Tabor RN) 1357 (See Alternative - Provider: Elliott Hdz, RN) polyethylene glycol (GLYCOLAX, MIRALAX) packet 17 g 17 g, Oral, 2 TIMES DAILY PRN, Starting on Tue07/23/24 at 1537, Until Tue07/24/24 at 2053, Constipation - 1st line, Dilute dose in 120 - 240 mL of beverage.Hold for loose stools (loose, liquid, mucoid, soft, watery stool that takes the shape of the container) or greater than 2 moderate or larger stools in 24hrs Prochlorperazine Edisylate (COMPAZINE) injection 10 mg 10 mg, Intravenous, EVERY 6 HOURS PRN, Starting on Tue07/23/24 at 1537, Until Tue07/24/24 at 2053, Nausea - 2nd line, Second Line Antiemetic Give if nausea/vomiting recurs after ondansetron. senna (SENOKOT) tablet 8.6 mg 8.6 mg (1 Tablet), Oral, 2 TIMES DAILY PRN, Starting on Tue07/23/24 at 1537, Until Tue07/24/24 at 2053, Constipation - 2nd line Linked Groups Order Group 1: potassium chloride IVPB 20 mEq 100 mL (COMPLETED)Jump to med 20 mEq, Intravenous, ONCE, 1 dose, On Tue07/24/24 at 1430, Administer over 2 Hours, Infuse each 20 mEq over 2 hours for a total dose of 40 mEq Followed by potassium chloride IVPB 20 mEq 100 mL (COMPLETED)Jump to med 20 mEq, Intravenous, ONCE, 1 dose, On Tue07/24/24 at 1630, Administer over 2 Hours, Infuse each 20 mEq over 2 hours for a total dose of 40 mEq Group 2: acetaminophen (TYLENOL) tablet 650 mgJump to med 650 mg, Oral, EVERY 4 HOURS PRN, Starting on Tue07/23/24 at 1537, Until Tue07/24/24 at 2053, Mild pain or more severe pain if patient requests, Fever, If patient is taking oral intake without complications and both PO/VT orders are active, administer through the oral route. Or acetaminophen (TYLENOL) suppository 650 mgJump to med 650 mg, Rectal, EVERY 4 HOURS PRN, Starting on Tue07/23/24 at 1537, Until Tue07/24/24 at 2053, Mild pain or more severe pain if patient requests, Fever, If patient is taking oral intake without complications and both PO/VT orders are active, administer through the oral route. Group 3: ondansetron (ZOFRAN-ODT) disintegrating tablet 4 mgJump to med 4 mg, Oral, EVERY 6 HOURS PRN, Starting on Tue07/23/24 at 1537, Until Tue07/24/24 at 2053, Nausea - 1st line, 1. First Line Antiemetic. 2. Use PO form unless unable to tolerate PO medications, then use Injection Or ondansetron (ZOFRAN) injection 4 mgJump to med 4 mg, Intravenous, EVERY 6 HOURS PRN, Starting on 07/23/24 at 1537, Until Tue07/24/24 at 2054, Nausea - 1st line, 1. First Line Antiemetic. 2. Use Injection only if patient unable to tolerate oral medications. documented in this encounter Additional Health Concerns Infection Onset Date Last Indicated Resolved Time COVID - 19 07/23/2024 07/23/2024 07/23/2024 10:3 8 AM CDT C. difficile Rule-Out 07/23/2024 07/24/20242023 1:43 AM CDT documented as of this encounter Care Teams Friend Of The Court Relationship Specialty Start Date End Date Kellen [place] [address] [address] PCP - General Family Medicine 04/18/24 Markus Finley MD [address] [place] [address] Consulting Physician Medical Oncology 04/18/24 documented as of this encounter
--- OUTSIDE RECORDS SUMMARY | 2024-10-26 08:04 | XMS_ITS | Encounter Summary ---
Author Organization [employer] Care Team Providers Care Stitch Burnisher Name Role Phone Pritesh Chu MD Primary Care Provider [phone] Markus Finley MD Unavailable Encounter Details Date Type Department Care Team (Latest Contact Info) Description 06/27/2024 Travel Social History Tobacco Use Types Packs/Day Years Used Date Smoking Tobacco: Former Cigarettes 0.5 8.5 S tarted: 04/18/2016 Smokeless Tobacco: Never Alcohol Use Standard Drinks/Week Comments Yes 0 (1 standard drink = 0.6 oz pur e alcohol) [facility] Utilities Answer Date Recorded In the past 12 months has [place], gas, oil, or water [employer] threatened to shut off services in your [...] and heating? Not hard at all 06/27/2024 [facility] [place] of Occupat ional Health - Occupational Stress [...] any time in the past 12 m [facility], were you homeless or living in a senior living (including now)? No 06/27/2024 Comments No Sex and Gender Information Value Date Recorded Sex Assigned at Female 06/20/2024 8:39 AM CDT Legal Sex Female 9:04 AM CDT Gender Identity Female 06/20/2024 8:39 AM CDT Sexual Orientation Bisexual 06/20/2024 8: 39 AM CDT documented as of this encounter Functional Status * Audit-C Score Answer Date of Assessment Author 0 06/27/2024 8:53 AM NELIAT Kaycee Galarza RN * Within the last year, have you been humiliated or emotionally abused in other ways by your partner or ex-partner? Answer Date of Assessment Author No 06/27/2024 8:53 AM NELIAT Kaycee Galarza RN * Within the last year, have you been afraid of your partner or ex-partner? Answer Date of Assessment Author No 06/27/2024 8:53 AM NELIAT Kaycee Galarza RN * Within the last year, have you been raped or forced to have any kind of sexual activity by your partner or ex-partner? Answer Date of Assessment Author No 06/27/2024 8:53 AM Kaycee Steel RN * Within the last year, have you been kicked, hit, slapped, or otherwise physically hurt by your partner or ex-partner? Answer Date of Assessment Author No 06/27/2024 8:53 AM Kaycee Steel RN * Question Answer Date of Assessment Author Q1: How often do you have a drink containing alcohol? Never 06/27/2024 8:53 AM Kaycee Steel RN Q2: How many drinks containing alcohol do you have on a typical day when you are drinking? Patient does not drink 06/27/2024 8:53 AM Kaycee Steel RN Q3: How often do you have six or more drinks on one occasion? Never 06/27/2024 8:53 AM CDT Kaycee Galarza , RN documented as of this encounter Plan of Treatment Upcoming Encounters Date Type Department Care Team (Late st Contact Info) Description 11/15/2024 1:00 PM NEWS OPERATIONS MANAGER [facility] [address] [place] [id number] Markus Finley MD [address] [place] [address] 11/15/2024 2:00 PM NEWS OPERATIONS MANAGER [facility]ment [facility] [address] [place] [id number] Markus Finley MD [address] [place] [address] Discharge Disposition: Discharged to home or Selfcare documented as of this encounter Visit Diagnoses Not on filedocumented in this encounter Care Teams Stitch Burnisher Relationship Specialty Start Date End Date Pritesh Chu MD [address] [place] [address] PCP - General Family Medicine 04/18/24 Markus Finley MD [address] [place] [address] Consulting Physician Medical Oncology 04/18/24 documented as of this encounter
--- OUTSIDE RECORDS SUMMARY | 2024-10-26 08:04 | XMS_ITS | Encounter Summary ---
Author Organization [facility] Address [address] [facility] [place] [address] Phone Care Team Providers Care Food Writer Name Role Phone Pritesh Chu MD Primary Care Provider [phone] Markus Finley MD Unavailable [phone] Encounter Details Date Type Department Care Team (Late st Contact Info) Description 06/20/2024 Telephone [facility] Oncology Services [address] [place] [address] Jennifer Bellamy, PERFORMING ARTS ROAD MANAGER [place] Social History Tobacco Use Types Packs/Day Years [...] encounter Miscellaneous Notes * Telephone Encounter - Jennifer Bellamy MSW - 06/20/2024 11:43 AM CDT Call to Chris. No answer to phone. Left voicemail message requesting a return call. documented in this encounter Plan of Treatment Upcoming Encounters Date Type Department Care Team (Late st Contact Info) Description 11/15/2024 1:00 PM RESOURCES REPRESENTATIVE [facility] [address] [place] [address] Markus Finley MD [address] [place] [address] 11/15/2024 2:00 PM RESOURCES REPRESENTATIVE [facility] [address] [place] [address] Markus Finley MD [address] [place] [address] Discharge Disposition: Discharged to home or Selfcare documented as of this encounter Visit Diagnoses Not on filedocumented in this encounter Care Teams Food Writer Relationship Specialty Start Date End Date Pritesh Chu MD [address] [place] [address] PCP - General Family Medicine 04/18/24 Markus Finley MD [address] [place] [address] Consulting Physician Medical Oncology 04/18/24 documented as of this encounter
--- OUTSIDE RECORDS SUMMARY | 2024-10-26 08:04 | XMS_ITS | Encounter Summary ---
Author Organization [employer] Care Team Providers Care Dryland Farmer Name Role Phone Pritesh Chu MD Primary Care Provider [phone] Markus Finley MD Unavailable [phone] Encounter Details Date Type Department Care Team (Latest Contact Info) Description 07/03/2024 Travel Social History Tobacco Use Types Packs/Day Years Used Date Smoking Tobacco: Former Cigarettes 0.5 8.5 S tarted: 04/18/2016 Smokeless Tobacco: Never Alcohol Use Standard Drinks/Week Comments Yes 0 (1 standard drink = 0.6 oz pur e alcohol) [facility] Utilities Answer Date Recorded In the past 12 months has [employer], gas, oil, or water [employer] threatened to shut off services in your [...] often do you attend chur ch or church services? Never 06/27/2024 Do you belong to [...] and heating? Not hard at all 06/27/2024 [facility] [employer] of Occupat ional Health - Occupational Stress [...] any time in the past 12 m [facility], were you homeless or living in [...] st Contact Info) Description 11/15/2024 1:00 PM LINE COOK [facility] [address] [place] [address] Markus Finley MD [address] [place] [address] 11/15/2024 2:00 PM LINE COOK [facility] [address] [place] [address] Markus Finley MD [address] [place] [address] Discharge Disposition: Discharged to home or Selfcare documented as of this encounter Visit Diagnoses Not on filedocumented in this encounter Care Teams Dryland Farmer Relationship Specialty Start Date End Date Pritesh Chu MD [address] [place] [address] PCP - General Family Medicine 04/18/24 Markus Finley MD [address] [place] [address] Consulting Physician Medical Oncology 04/18/24 documented as of this encounter
--- OUTSIDE RECORDS SUMMARY | 2024-10-26 08:04 | XMS_ITS | Encounter Summary ---
Author Organization [facility] Address [address] [place] [address] Phone Care Team Providers Care Boiler Plant Operator Name Role Phone Pritesh Chu MD Primary Care Provider [phone] Markus Finley MD Unavailable [phone] Reason for Visit * Episode Based Medications (Routine) - Closed Specialty Diagnoses / Procedures Referred By Contross t Referred To Contact Diagnoses Metastatic melanoma (HCC) Markus Finley MD [address] [place] [address] Phone: tel: fax: [facility] [address] [place] [address] Phone: tel: fax: Referral ID Status Reason Start Date Expiration Date Visits Re quested Visits Authorized [id number] Closed 04/19/2024 1 30 Encounter Details Date Type Department Care Team (Late st Contact Info) Description 06/12/2024 1:00 PM CDT Clinical Support [facility]cology [facility] [address] [place] [address] Markus Finley MD [address] [place] [address] Metastatic melanoma (HCC) (Primary Dx); Abnormal TSH Discharge Disposition: Discharged to home or Selfcare [...] Sign Reading Time Taken Comments Blood Pressure 139/87 06/12/2024 1:04 PM CDT Pulse 76 06/12/2024 1:04 PM CDT Temperature 36.7 ??C (98 ??F) 06/12/2024 1:04 PM CDT Respiratory Rate 16 06/12/2024 1:04 PM CDT Oxygen Saturation 99% 06/12/2024 1:04 PM CDT Inhaled Oxygen Concentration - - Weight 131.5 kg (289 lb 12.8 oz) 06/12/2024 1:04 PM CDT Height - - Body Mass Index 45.39 05/08/2024 2:20 PM CDT documented in this encounter Miscellaneous Notes * Interdisciplinary - Liliana Finney, RN - 06/12/2024 1:00 PM CDT Pt arrived for treatment today with family member. Diarrhea has improved some since starting Imodium protocol, but does still have some diarrhea off and on. Small amount diarrhea this AM. Pt reports headaches at least once daily, but has been happening for months. New possible lesions on L foot andL branham that she would like provider to look at today. Port accessed x1 attempt; flushed easily withgood blood return. Pt [facility] treatment [facility] * Interdisciplinary - Liliana Finney RN - 06/12/2024 1:00 PM CDT Medication given per MD order and pt tolerated well. Pt recites she will call derm office at [facility] for follow-up regarding possible new lesions and rash on bilateral elbows (small, pinpoint bumps,no redness; almost looks like heat bumps). Port flushed with NS and heparin per protocol and port needle removed. Port site covered with bandaid. Patient left tx area in stable condition with no further requests with family member. documented in this encounter Plan of Treatment Upcoming Encounters Date Type Department Care Team (Late st Contact Info) Description 11/15/2024 1:00 PM PHYSICAL AERODYNAMICIST Lab [facility] [address] [place] [address] Markus Finley MD [address] [place] [address] 11/15/2024 2:00 PM PHYSICAL AERODYNAMICIST Appointment [facility] [address] [place] [address] Markus Finley MD [address] [place] [address] Discharge Disposition: Discharged to home or Selfcare documented as of this encounter Procedures Procedure Name Priority Date/Time Associated Diagnosis Comments THYROID SCREEN WITH REFLEX Routine 06/12/2024 2:14 PM CDT Abnormal TSH THYROID SCREEN WITH REFLEX Routine 06/12/2024 2:14 PM CDT Abnormal TSH THYROXINE (T4) FREE Routine 06/12/2024 2 :14 PM CDT Abnormal TSH THYROXINE (T4) FREE Routine 06/12/2024 2 :14 PM CDT Abnormal TSH TRIIODOTHYRININE (T3) TOTAL Routine 06/12/2024 2:14 PM CDT Abnormal TSH CMP (COMPREHENSIVE METABOLIC PANEL) STAT 06/12/2024 2:14 PM CDT Metastatic melanoma (HCC) documented in this encounter Results * THYROXINE (T4) FREE (06/12/2024 2:14 PM CDT) T4 FREE 0.8 0.7 - 1.9 ng/dL 06/12/2024 4:54 PM CDT [facility] Blood Sub-Q Port Venou s Access Device (Medi-Port, Implanted Port) / Unknown 06/12/2024 2:14 PM CDT 06/12/2024 2:14 PM CDT [facility] PAC CHEMISTRY ORDERABLES Susan l Result [facility] [address] [place] [address] * (ABNORMAL) THYROID SCREEN WITH REFLEX (06/12/2024 2:14 PM CDT) TSH 0.100(L) 0.300 - 5.000 mIU/L 06/12/2024 4:23 PM CDT [facility] Blood Sub-Q Port Venou s Access Device (Medi-Port, Implanted Port) / Unknown 06/12/2024 2:14 PM CDT 06/12/2024 2:14 PM CDT [facility] PAC CHEMISTRY ORDERABLES Susan l Result [facility] [address] [place] [address] * TRIIODOTHYRININE (T3) TOTAL (06/12/2024 2:14 PM CDT) Pathologist [facility] T3 107 40 - 193 ng/dL 06/12/2024 9:46 PM CDT [facility] Blood Sub-Q Port Venou s Access Device (Medi-Port, Implanted Port) / Unknown 06/12/2024 2:14 PM CDT 06/12/2024 2:14 PM CDT [facility] PAC CHEMISTRY ORDERABLES Susan l Result [facility] [address] [place] [address], * THYROXINE (T4) FREE (06/12/2024 2:14 PM CDT) Pathologist [facility] T4 FREE 0.8 0.7 - 1.9 ng/dL 06/12/2024 4:25 PM CDT [facility] Blood Sub-Q Port Venou s Access Device (Medi-Port, Implanted Port) / Unknown 06/12/2024 2:14 PM CDT 06/12/2024 2:14 PM CDT [facility] PAC CHEMISTRY ORDERABLES Susan l Result [facility] [address] [place] [address] * (ABNORMAL) CMP (COMPREHENSIVE METABOLIC PANEL) (06/12/2024 2:14 PM CDT) Pathologist [facility] SODIUM 140 136 - 145 mmol/L 06/12/2024 4:04 PM CDT [facility] POTASSIUM 3.5 3.5 - 5.1 mmol/L 06/12/2024 4:04 PM CDT [facility] CHLORIDE 109(H) 98 - 107 mmol/L 06/12/2024 4:04 PM CDT [facility] CO2, VENOUS 23 22 - 30 mmol/L 06/12/2024 4:04 PM CDT [facility] ANION GAP 11.5 <18.0 mmol/L 06/12/2024 4:04 PM T [facility] GLUCOSE 136(H) 70 - 99 mg/dL 06/12/2024 4:04 PM CDT [facility] BUN 12 5 - 18 mg/dL 06/12/2024 4:04 PM T [facility] CREATININE, BLOOD 0.73 0.60 - 1.00 mg/dL 06/12/2024 4:04 PM T [facility] BUN/CREATININE RATIO 16 12 - 20 ratio 06/12/2024 4:04 PM T [facility] TOTAL PROTEIN 6.4 6.3 - 8.2 g/dL 06/12/2024 4:04 PM T [facility] ALBUMIN 3.6 3.5 - 5.0 g/dL 06/12/2024 4:04 PM T [facility] A/G RATIO 1.3 1.0 - 2.2 06/12/2024 4:04 PM T [facility] CALCIUM 9.1 8.7 - 10.5 mg/dL 06/12/2024 4:04 PM T [facility] T BILI 0.2 0.2 - 1.2 mg/dL 06/12/2024 4:04 PM CDT [facility] SGOT (AST) 20 5 - 34 U/L 06/12/2024 4:04 PM T [facility] SGPT (ALT) 37 0 - 55 U/L 06/12/2024 4:04 PM T [facility] ALKALINE PHOSPHATASE 59 40 - 150 U/L 06/12/2024 4:04 PM T [facility] IS THE PATIENT REQUIRED TO BE FASTING? No 06/12/2024 4:04 PM T [facility] GFR, ESTIMATED >60 >=60 06/12/2024 4:04 PM CDT [facility] Comment: Creatinine Clearance is the preferred criteria for selecting drug dose adjustments in renally impaired patients. ??The GFR is provided as additional pertinent clinical information. GFR is reported in mL/min/1.73 sq m. Calculation based on the Chronic Kidney Disease Epidemiology Collaboration (CKD- EPI) equation refit without adjustment for race. GFR, EST. >60 >=60 024 4:04 PM CDT [facility] GFR, EST. NONAFRICAN >60 >=60 06/12/2024 4:04 PM CDT [facility] Blood Sub-Q Port Venou s Access Device (Medi-Port, Implanted Port) / Unknown 06/12/2024 2:14 PM CDT 06/12/2024 2:14 PM CDT Markus Finley MD CHEMISTRY ORDERABLES Fin al Result [facility] [address] [place] [address] documented in this encounter Visit Diagnoses Diagnosis Metastatic melanoma (HCC)- Primary Melanoma of skin, site unspecified Abnormal TSH Other abnormal clinical finding documented in this encounter Administered Medications Inactive Administered Medications - up to 3 most recent administrations Medication Order MAR Action Action Date Dose Rate Site 0.9 % sodium chloride solution at 75 mL/hr, Intravenous, ONCE, 1 dose, On Tue06/12/24 at 1400Indications:Metastatic melanoma (HCC) New Bag 06/12/2024 2:15 PM CDT 250 mL 75 mL/hr Heparin Na (Pork) Lock Flsh PF SOLN 50 Units 50 Units, Intravenous, PRN, Starting on Tue06/12/24 at 1327, Until Tue06/12/24 at 1816, Line Care, Line care per [facility] Grid.Indications:Metastatic melanoma (HCC) Given 06/12/2024 3:52 PM CDT 50 Units ipilimumab (YERVOY) 130 mg in sodium chloride 0.9 % 250 mL chemo IVPB 130 mg (rounded from 131.5 mg = 1 mg/kg ? 131.5 kg), Intravenous, ONCE, 1 dose, On Tue06/12/24 at 1400, Administer over 30 Minutes, Administer through a low protein binding 0.2 or 1.2 micron in-line filter. Do not administer other medications through the same IV line. Flush IV line at the end of the infusion.Indications:Metasta tic melanoma (HCC) New Bag 06/12/2024 2:59 PM CDT 130 mg nivolumab (Opdivo) 380 mg in sodium chloride 0.9 % 100 mL IVPB 380 mg (rounded from 394.5 mg = 3 mg/kg ? 131.5 kg), Intravenous, ONCE, 1 dose, On Tue06/12/24 at 1400, Administer over 30 Minutes, Administer nivolumab first, and promptly flush the line with saline prior to starting ipilimumab. Administer through a line with a sterile, nopyrogenic, low protein binding 0.2 to 1.2 micrometer in-line filter. Do not administer other medications through the same IV line. Flush IV line at the end of the infusion.Indications:Metasta tic melanoma (HCC) New 06/12/2024 2:15 PM CDT 380 mg documented in this encounter Care Teams Boiler Plant Operator Relationship Specialty Start Date End Date Pritesh Chu MD [address] [place] [address] PCP - General Family Medicine 04/18/24 Markus Finley MD [address] [place] [address] Consulting Physician Medical Oncology 04/18/24 documented as of this encounter
--- OUTSIDE RECORDS SUMMARY | 2024-10-26 08:04 | XMS_ITS | Encounter Summary ---
Author Organization [employer] Care Team Providers Care Machine Shop Lead Man Name Role Phone Pritesh Chu MD Primary Care Provider [phone] Markus Finley MD Unavailable [phone] Encounter Details Date Type Department Care Team (Latest Contact Info) Description 07/12/2024 Travel Social History Tobacco Use Types Packs/Day Years Used Date Smoking Tobacco: Former Cigarettes 0.5 8.5 S tarted: 04/18/2016 Smokeless Tobacco: Never Alcohol Use Standard Drinks/Week Comments Yes 0 (1 standard drink = 0.6 oz pur e alcohol) [facility] Utilities Answer Date Recorded In the past 12 months has [employer], gas, oil, or water [employer] threatened to shut off services in your [...] often do you attend chur ch or scientologist services? Never 06/27/2024 Do you belong to [...] and heating? Not hard at all 06/27/2024 [facility] [place] of Occupat ional Health - Occupational Stress [...] or living in a fdc (including now)? No 06/27/2024 Comments No Sex [...] st Contact Info) Description 11/15/2024 1:00 PM WOMENS HEALTH NURSE PRACTITIONER Lab [facility] [address] [place] [address] Markus Finley MD [address] [place] [address] 11/15/2024 2:00 PM WOMENS HEALTH NURSE PRACTITIONER Appointment [facility] [address] [place] [address] Markus Finley MD [address] [place] [address] Discharge Disposition: Discharged to home or Selfcare documented as of this encounter Visit Diagnoses Not on filedocumented in this encounter Care Teams Machine Shop Lead Man Relationship Specialty Start Date End Date Pritesh Chu MD [address] [place] [address] PCP - General Family Medicine 04/18/24 Markus Finley MD [address] [place] [address] Consulting Physician Medical Oncology 04/18/24 documented as of this encounter
--- OUTSIDE RECORDS SUMMARY | 2024-10-26 08:04 | XMS_ITS | Encounter Summary ---
Author Organization [facility] Address [address] [place] [address] Phone Care Team Providers Care Auto Travel Counselor Name Role Phone Pritesh Chu MD Primary Care Provider [phone] Markus Finley MD Unavailable Reason for Visit * Reason Onset Date Comments Follow-up 07/02/2024 Encounter Details Date Type Department Care Team (Late st Contact Info) Description 07/02/2024 Post Discharge [facility]up [facility] [address] [place] [address] Arline Rojo, RN [place] Social History Tobacco Use Types Packs/Day Years Used Date Smoking Tobacco: Former Cigarettes 0.5 8.5 S tarted: 04/18/2016 Smokeless Tobacco: Never Alcohol Use Standard Drinks/Week Comments Yes 0 (1 standard drink = 0.6 oz pur e alcohol) [facility] Utilities Answer Date Recorded In the [...] often do you attend chur ch or roman catholic services? Never 06/27/2024 Do you belong to [...] and heating? Not hard at all 06/27/2024 [facility] of Occupat ional Health - Occupational [...] Telephone Encounter - Arline Rojo RN - 07/02/2024 2:29 PM CDT Called patient to follow up after recent discharge from [facility] Med[facility]Surg Unit. How are you feeling? I'm all right Did you get your medications? Yes Do you have the date of your follow up appointment? Not yet. Patient states she is still waiting to see if PCP accepts her insurance. Do you have a ride? Have you heard from Home health? na What else can I do for you? Nothing Do you have any questions for the Discharging Dr? No Instructed patient to callback with any questions or concerns. documented in this encounter Plan of Treatment Upcoming Encounters Date Type Department Care Team (Late st Contact Info) Description 11/15/2024 1:00 PM HAIRMASTERS MANAGER Lab [facility] Laboratory Services [address] [place] [address] Markus Finley MD [address] [place] [address] 11/15/2024 2:00 PM HAIRMASTERS MANAGER Appointment [facility] MRI [address] [place] [address] Markus Finley MD [address] [place] [address] Discharge Disposition: Discharged to home or Selfcare documented as of this encounter Visit Diagnoses Not on filedocumented in this encounter Care Teams Auto Travel Counselor Relationship Specialty Start Date End Date Pritesh Chu MD [address] [address] PCP - General Family Medicine 04/18/24 Markus Finley MD [address] [place] [address] Consulting Physician Medical Oncology 04/18/24 documented as of this encounter
--- OUTSIDE RECORDS SUMMARY | 2024-10-26 08:04 | XMS_ITS | Encounter Summary ---
Author Organization [employer] Care Team Providers Care Automotive Parts Counterperson Name Role Phone Pritesh Chu MD Primary Care Provider [phone] Markus Finley MD Unavailable [phone] Encounter Details Date Type Department Care Team (Latest Contact Info) Description 07/05/2024 Travel Social History Tobacco Use Types Packs/Day Years Used Date Smoking Tobacco: Former Cigarettes 0.5 8.5 S tarted: 04/18/2016 Smokeless Tobacco: Never Alcohol Use Standard Drinks/Week Comments Yes 0 (1 standard drink = 0.6 oz pur e alcohol) [facility] [facility] Utilities Answer Date Recorded In the past 12 months has [employer], gas, oil, or water [employer] threatened to shut off services in your [...] often do you attend chur ch or presybeterian services? Never 06/27/2024 Do you belong to any clubs o r organizations such as lutheran groups, unions, fraternal or athletic groups, or [...] heating? Not hard at all 06/27/2024 [facility] [place] of Occupat ional Health - Occupational Stress [...] in the past 12 m [facility], were you homeless or living in a group home (including now)? No 06/27/2024 Comments No [...] st Contact Info) Description 11/15/2024 1:00 PM CROP PICKER Lab [facility] [address] [place] [address] Markus Finley MD [address] [place] [address] 11/15/2024 2:00 PM CROP PICKER Appointment [facility] [address] [place] [address] Markus Finley MD [address] [place] [address] Discharge Disposition: Discharged to home or Selfcare documented as of this encounter Visit Diagnoses Not on filedocumented in this encounter Care Teams Automotive Parts Counterperson Relationship Specialty Start Date End Date Pritesh Chu MD [address] [place] [address] PCP - General Family Medicine 04/18/24 Markus Finley MD [address] [place] [address] Consulting Physician Medical Oncology 04/18/24 documented as of this encounter
--- OUTSIDE RECORDS SUMMARY | 2024-10-26 08:04 | XMS_ITS | Encounter Summary ---
Author Organization [facility] Care Team Providers Care Soft Mud Molder Name Role Phone Pritesh Chu MD Primary Care Provider Markus Finley MD Unavailable [phone] Encounter Details Date Type Department Care Team (Latest Contact Info) Description 06/10/2024 Travel Social History Tobacco Use Types Packs/Day [...] st Contact Info) Description 11/15/2024 1:00 PM AIRPORT MAINTENANCE CHIEF Lab [facility] Laboratory Services [address] [place] [phone] Markus Finley MD [address] [place] [address] 11/15/2024 2:00 PM AIRPORT MAINTENANCE CHIEF Appointment [facility] MRI [address] [place] [address] Markus Finley MD [address] [place] [address] Discharge Disposition: Discharged to home or Selfcare documented as of this encounter Visit Diagnoses Not on filedocumented in this encounter Care Teams Soft Mud Molder Relationship Specialty Start Date End Date Pritesh Chu MD [address] [place] [address] PCP - General Family Medicine 04/18/24 Markus Finley MD [address] [place] [address] Consulting Physician Medical Oncology 04/18/24 documented as of this encounter
--- OUTSIDE RECORDS SUMMARY | 2024-10-26 08:04 | XMS_ITS | Encounter Summary ---
Author Organization [facility] Address [address] [facility] [address] Phone Care Team Providers Care Assembly Mechanic Name Role Phone Pritesh Chu MD Primary Care Provider [phone] Markus Finley MD Unavailable [phone] Encounter Details Date Type Department Care Team (Late st Contact Info) Description 07/05/2024 9:00 AM CDT Clinical Support [facility] Oncology Services [address] [place] [id number] Jenn Medellin Edelmira, PAC [address] [place] [address] Potassium (K) deficiency (Primary Dx); Metastatic melanoma (HCC) Discharge Disposition: Discharged to home or Selfcare Social History Tobacco Use Types Packs/Day Years Used Date Smoking Tobacco: Former Cigarettes 0.5 8.5 S tarted: 04/18/2016 Smokeless Tobacco: Never Alcohol Use Standard Drinks/Week Comments Yes 0 (1 standard drink = 0.6 oz pur e alcohol) [facility] Utilities Answer Date Recorded In the past 12 months has inContact, oil, or [employer] threatened to shut off services in your [...] often do you attend chur ch or orthodox services? Never 06/27/2024 Do you belong to any clubs o r organizations such as jainism groups, unions, fraternal or athletic groups, or [...] heating? Not hard at all 06/27/2024 [facility] Answer Date [...] time in the [facility] were you [facility] or living in a mcc (including now)? No 06/27/2024 Comments No Sex and Gender Information Value Date Recorded Sex Assigned at Female 06/20/2024 8:39 AM CDT Legal Sex Female 9:04 AM CDT Gender Identity Female 06/20/2024 8:39 AM CDT Sexual Orientation Bisexual 06/20/2024 8: 39 AM CDT documented as of this encounter Last Filed Vital Signs Vital Sign Reading Time Taken Comments Blood Pressure 134/85 07/05/2024 9:00 AM CDT Pulse 111 07/05/2024 9:00 AM CDT Temperature 36.3 ??C (97.4 ??F) 07/05/2024 9:00 AM CD T Respiratory Rate 18 07/05/2024 9:00 AM CDT Oxygen Saturation - - Inhaled Oxygen Concentration - - Weight - - Height - - Body Mass Index - - documented in this encounter Miscellaneous Notes * Interdisciplinary - Tatum Ortega, RN - 07/05/2024 9:00 AM CDT Pt ambulated into treatment room in stable condition. Vitals obtained. Port accessed per protocol. Flushed with ease and blood return noted. Labs drawn per MD orders. Medications intended effects andside effects reviewed with pt. Pt medicated per MD orders. Pt tolerated well. Port flushed and needle removed. Band aid placed. Pt to return tomorrow for 1 liter NS with 20 mEq and to redraw CMP. Pt states understanding. Pt discharged in stable condition. documented in this encounter Plan of Treatment Upcoming Encounters Date Type Department Care Team (Late st Contact Info) Description 11/15/2024 1:00 PM VENEER TAPING MACHINE OPERATOR [facility] [address] [place] [address] Markus Finley MD [address] [place] [address] 11/15/2024 2:00 PM VENEER TAPING MACHINE OPERATOR [facility]ment [facility] [address] [place] [address] Markus Finley MD [address] [place], [place] [id number] Discharge Disposition: Discharged to home or Selfcare documented as of this encounter Procedures Procedure Name Priority Date/Time Associated Diagnosis Comments MAGNESIUM (MG) STAT 07/05/2024 9:24 AM CDT CMP (COMPREHENSIVE METABOLIC PANEL) STAT 07/05/2024 9:24 AM CDT Metastatic melanoma (HCC) documented in this encounter Results * MAGNESIUM (MG) (07/05/2024 9:24 AM CDT) MAGNESIUM 2.4 1.6 - 2.6 mg/dL 07/05/2024 10:33 AM CDT [facility] Blood Venipuncture / Unknown 07/05/2024 9:24 AM CDT 07/05/2024 10:21 AM CDT us Markus Finley MD CHEMISTRY ORDERABLES Fin al Result [facility] [address] [place] [address] * (ABNORMAL) CMP (COMPREHENSIVE METABOLIC PANEL) (07/05/2024 9:24 AM CDT) SODIUM 132(L) 136 - 145 mmol/L 07/05/2024 10:05 AM CDT [facility] POTASSIUM 2.6(LL) 3.5 - 5.1 mmol/L 07/05/2024 10:05 AM CDT [facility] CHLORIDE 107 98 - 107 mmol/L 07/05/2024 10:05 AM T [facility] CO2, VENOUS 16(L) 22 - 30 mmol/L 07/05/2024 10:05 AM T [facility] ANION GAP 11.6 <18.0 mmol/L 07/05/2024 10:05 AM T [facility] GLUCOSE 193(H) 70 - 99 mg/dL 07/05/2024 10:05 AM CDT [facility] BUN 7 5 - 18 mg/dL 07/05/2024 10:05 AM [facility] CREATININE, BLOOD 1.03(H) 0.60 - 1.00 mg/dL 07/05/2024 10:05 AM [facility] BUN/CREATININE RATIO 7(L) 12 - 20 ratio 07/05/2024 10:05 AM [facility] TOTAL PROTEIN 6.1(L) 6.3 - 8.2 g/dL 07/05/2024 10:05 AM T [facility] ALBUMIN 3.4(L) 3.5 - 5.0 g/dL 07/05/2024 10:05 AM [facility] A/G RATIO 1.3 1.0 - 2.2 07/05/2024 10:05 AM T [facility] CALCIUM 8.7 8.7 - 10.5 mg/dL 07/05/2024 10:05 AM T [facility] T BILI 0.6 0.2 - 1.2 mg/dL 07/05/2024 10:05 AM CDT [facility] SGOT (AST) 15 5 - 34 U/L 07/05/2024 10:05 AM CDT [facility] SGPT (ALT) 46 0 - 55 U/L 07/05/2024 10:05 AM CDT [facility] ALKALINE PHOSPHATASE 61 40 - 150 U/L 07/05/2024 10:05 AM CDT [facility] IS THE PATIENT REQUIRED TO BE FASTING? No 07/05/2024 10:05 AM CDT [facility] GFR, ESTIMATED >60 >=60 07/05/2024 10:05 AM CDT [facility] Comment: Creatinine Clearance is the preferred criteria for selecting drug dose adjustments in renally impaired patients. ??The GFR is provided as additional pertinent clinical information. GFR is reported in mL/min/1.73 sq m. Calculation based on the Chronic Kidney Disease Epidemiology Collaboration (CKD- EPI) equation refit without adjustment for race. GFR, EST. >60 >=60 024 10:05 AM CDT [facility] GFR, EST. NONAFRICAN >60 >=60 07/05/2024 10:05 AM CDT [facility] Blood Venipuncture / Unknown 07/05/2024 9:24 AM CDT 07/05/2024 9:24 AM CDT Markus Finley MD CHEMISTRY ORDERABLES Fin al Result [facility] [address] [place] [address] documented in this encounter Visit Diagnoses Diagnosis Potassium (K) deficiency- Primary Hypopotassemia Metastatic melanoma (HCC) Melanoma of skin, site unspecified documented in this encounter Administered Medications Inactive Administered Medications - up to 3 most recent administrations Medication Order MAR Action Action Date Dose Rate Site 0.9 % sodium chloride solution at 999 mL/hr, Intravenous, CONTINUOUS, Starting on Tue07/05/24 at 1000, Until Tue07/05/24 at 1721Indications:Metastatic melanoma (HCC) New Bag 07/05/2024 9:27 AM CDT 999 mL/hr Heparin Na (Pork) Lock Flsh PF SOLN 50 Units 50 Units, Intravenous, PRN, Starting on Barb 07/05/24 at 1158, Until Barb 07/05/24 at 1721, Line CareIndications:Metastatic melanoma (HCC),Potassium (K) deficiency Given 07/05/2024 12:30 PM CDT 50 Units potassium chloride IVPB 20 mEq 100 mL 20 mEq, Intravenous, ONCE, 1 dose, On Barb 07/05/24 at 1030, Administer over 2 HoursIndications:Potassium (K) deficiency New Bag 07/05/2024 10:27 AM CDT 20 mEq potassium chloride SA (KLORCON M) tablet 40 mEq 40 mEq, Oral, ONCE, 1 dose, On Barb 07/05/24 at 1100, Do Not CrushIndications:Potassium (K) deficiency Given 07/05/2024 10:27 AM CDT 40 mEq documented in this encounter Care Teams Assembly Mechanic Relationship Specialty Start Date End Date Pritesh Chu MD [address] [place] [address] PCP - General Family Medicine 04/18/24 Markus Finley MD [address] [place] [address] Consulting Physician Medical Oncology 04/18/24 documented as of this encounter
--- OUTSIDE RECORDS SUMMARY | 2024-10-26 08:04 | XMS_ITS | Encounter Summary ---
Author Organization [facility] Address [address] [place] [address] Phone Care Team Providers Care Drier Transfer Car Operator Name Role Phone Pritesh Chu MD Primary Care Provider [phone] Markus Finley MD Unavailable [phone] Encounter Details Date Type Department Care Team (Late st Contact Info) Description 06/26/2024 Telephone [facility] Oncology Services [address] [place] [phone] Markus Finley MD [address] [place] [address] Social History Tobacco Use Types Packs/Day Years Used Date Smoking Tobacco: Former Cigarettes 0.5 8.5 S tarted: 04/18/2016 Smokeless Tobacco: Never Alcohol Use Standard Drinks/Week Comments Yes 0 (1 standard drink = 0.6 oz pur e alcohol) [facility] Utilities Answer Date Recorded In the [...] often do you attend chur ch or voodoo services? Never 06/27/2024 Do you belong to any clubs o r organizations such as buddhism groups, unions, fraternal or athletic groups, or [...] and heating? Not hard at all 06/27/2024 [facility] - Occupational [...] any time in the past 12 m [facility], were you homeless or living in a fpc (including now)? No 06/27/2024 Comments No Sex and Gender Information Value Date Recorded Sex Assigned at Female 06/20/2024 8:39 AM CDT Legal Sex Female 9:04 AM CDT Gender Identity Female 06/20/2024 8:39 AM CDT Sexual Orientation Bisexual 06/20/2024 8: 39 AM CDT documented as of this encounter Miscellaneous Notes * Telephone Encounter - Marie Barclay RN - 06/26/2024 3:10 PM CDT Patient returned call she is still having issues with vomiting and diarrhea. She does have Zofran 8mg tabs at home but has not tried taking any as of yet she also has not picked up her Lomotil that was prescribed yesterday. Encouraged patient to start Zofran and get the lomotil picked up so that she can get the diarrhea under control. Also advised to try drinking small amount suck on ice cubes or try popsicle to replacesome of the lost fluids slowly . Directed patient to return call to office tomorrow in am if symptoms not better. Patient verbalized understanding all instructions provided and will call office with any additionalconcerns or questions. documented in this encounter Plan of Treatment Upcoming Encounters Date Type Department Care Team (Late st Contact Info) Description 11/15/2024 1:00 PM AEROPHYSICS ENGINEER Lab [facility] Laboratory Services [address] [facility] [place] [address] Markus Finley MD [address] [place] [address] 11/15/2024 2:00 PM AEROPHYSICS ENGINEER Appointment [facility] MRI 1 [facility] [place] [address] Markus Finley MD [address] [place] [address] Discharge Disposition: Discharged to home or Selfcare documented as of this encounter Visit Diagnoses Not on filedocumented in this encounter Care Teams Drier Transfer Car Operator Relationship Specialty Start Date End Date Pritesh Chu MD [address] [place] [address] PCP - General Family Medicine 04/18/24 Markus Finley MD [address] [place] [address] Consulting Physician Medical Oncology 04/18/24 documented as of this encounter
--- OUTSIDE RECORDS SUMMARY | 2024-10-26 08:04 | XMS_ITS | Encounter Summary ---
Author Organization [facility] Address [address] [facility] [place] [address] Phone Care Team Providers Care Bus And Trolley Dispatcher Name Role Phone Pritesh Chu MD Primary Care Provider [phone] Markus Finley MD Unavailable [phone] Encounter Details Date Type Department Care Team (Late st Contact Info) Description 06/25/2024 Telephone [facility] Oncology Services [address] [place] [address] Jennifer Bellamy, SOLUTIONS OPERATOR [place] Social History Tobacco Use Types Packs/Day Years [...] Telephone Encounter - Jennifer Bellamy MSW - 06/25/2024 11:03 AM CDT Call to Alex. Child voicemail message requesting a return call documented in this encounter Plan of Treatment Upcoming Encounters Date Type Department Care Team (Late st Contact Info) Description 11/15/2024 1:00 PM HUB INVENTORY SPECIALIST [facility] [address] [place] [address] Markus Finley MD [address] [place] [address] 11/15/2024 2:00 PM HUB INVENTORY SPECIALIST [facility]ment [facility] [address] [place] [address] Markus Finley MD [address] [place] [address] Discharge Disposition: Discharged to home or Selfcare documented as of this encounter Visit Diagnoses Not on filedocumented in this encounter Care Teams Bus And Trolley Dispatcher Relationship Specialty Start Date End Date Pritesh Chu MD [address] [place] [address] PCP - General Family Medicine 04/18/24 Markus Finley MD [address] [place] [address] Consulting Physician Medical Oncology 04/18/24 documented as of this encounter
--- OUTSIDE RECORDS SUMMARY | 2024-10-26 08:04 | XMS_ITS | Encounter Summary ---
Author Organization [facility] Address [address] [place] [address] Phone Care Team Providers Care Head Inspector And Center Marker Name Role Phone Pritesh Chu MD Primary Care Provider [phone] Markus Finley MD Unavailable [phone] Encounter Details Date Type Department Care Team (Late st Contact Info) Description 06/01/2024 Telephone [facility] Oncology Services [address] [place] [phone] Markus Finley MD [address] [place] [address] Social History Tobacco Use Types Packs/Day Years [...] Telephone Encounter - Liliana Finney RN - 06/01/2024 2:08 PM CDT Returned call to pt; instructed to keep up with discussed regimen and to call if symptoms don't improve in the next day or two. Pt requested appt for f/u same day as next treatment; added to Amber, MKFranci full. Pt agreed to plan. * Telephone Encounter - Markus Finley MD - 06/01/2024 12:28 PM CDT Manage the nausea and diarrhea with zofran/compazine and imodium respectively Will have to see the spot' on the foot. We can give her an appointment to be seen in the next weekor so * Telephone Encounter - Liliana Finney RN - 06/01/2024 11:08 AM CDT Chris called re: nausea and diarrhea for the past 5 days. She has not had a fever but does report a stuffy nose and continued rash on thighs/elbows (states it was present after first treatment). She reports the rash is red, raised and itchy; slightly improved on her thighs. Denies cough, SOB, FELICIANO, orrunny nose. Pt has not taken antiemetics; instructed pt on use of Zofran and instructed on use/to try Imodium for the diarrhea. She also reports a possible new spot on her L foot that she is concerned about. Please advise. documented in this encounter Plan of Treatment Upcoming Encounters Date Type Department Care Team (Late st Contact Info) Description 11/15/2024 1:00 PM LITIGATION SERVICES MANAGER Lab [facility] Laboratory Services [address] [place] [address] Markus Finley MD [address] [place] [address] 11/15/2024 2:00 PM LITIGATION SERVICES MANAGER Appointment [facility] MRI [address] [place] [address] Markus Finley MD [address] [place] [address] Discharge Disposition: Discharged to home or Selfcare documented as of this encounter Visit Diagnoses Not on filedocumented in this encounter Care Teams Head Inspector And Center Marker Relationship Specialty Start Date End Date Pritesh Chu MD [address] [place] [address] PCP - General Family Medicine 04/18/24 Markus Finley MD [address] [place] [address] Consulting Physician Medical Oncology 04/18/24 documented as of this encounter
--- OUTSIDE RECORDS SUMMARY | 2024-10-26 08:04 | XMS_ITS | Encounter Summary ---
Author Organization [facility] Address [address] [facility] [place] [address] Phone Care Team Providers Care Lubricating Machine Tender Name Role Phone Pritesh Chu MD Primary Care Provider Markus Finley MD Unavailable [phone] Reason for Visit * Reason Comments Medication Refill Encounter Details Date Type Department Care Team (Late st Contact Info) Description 06/25/2024 Refill [facility] Oncology Services [address] [place] [phone] Markus Finley MD [address] [place] [address] Medication Refill Social History Tobacco Use Types [...] encounter Miscellaneous Notes * Telephone Encounter - Tatum Ortega RN - 06/25/2024 9:45 AM CDT Omeprazole refilled per MD. Next apt in 1 wk documented in this encounter Plan of Treatment Upcoming Encounters Date Type Department Care Team (Late st Contact Info) Description 11/15/2024 1:00 PM PROPELLANT ASSEMBLER [facility] [address] [place] [address] Markus Finley MD [address] [place] [address] 11/15/2024 2:00 PM PROPELLANT ASSEMBLER [facility]ment [facility] 1 [place] [address] Markus Finley MD [address] [place] [address] Discharge Disposition: Discharged to home or Selfcare documented as of this encounter Visit Diagnoses Not on filedocumented in this encounter Care Teams Lubricating Machine Tender Relationship Specialty Start Date End Date Pritesh Chu MD [address] [place] [address] PCP - General Family Medicine 04/18/24 Markus Finley MD [address] [place] [address] Consulting Physician Medical Oncology 04/18/24 documented as of this encounter
--- OUTSIDE RECORDS SUMMARY | 2024-10-26 08:04 | XMS_ITS | Encounter Summary ---
Author Organization [employer] Care Team Providers Care Tent Worker Name Role Phone Pritesh Chu MD Primary Care Provider [phone] Markus Finley MD Unavailable [phone] Encounter Details Date Type Department Care Team (Latest Contact Info) Description 07/04/2024 Travel Social History Tobacco Use Types Packs/Day Years Used Date Smoking Tobacco: Former Cigarettes 0.5 8.5 S tarted: 04/18/2016 Smokeless Tobacco: Never Alcohol Use Standard Drinks/Week Comments Yes 0 (1 standard drink = 0.6 oz pur e alcohol) [facility] Utilities Answer Date Recorded In the past 12 months has [employer], gas, oil, or water [employer] threatened to shut off services in your [...] often do you attend chur ch or islam services? Never 06/27/2024 Do you belong to [...] Not hard at all 06/27/2024 [facility] [place] [facility] - Occupational Stress [...] time in the past [address] [facility], were you homeless or living in a [...] st Contact Info) Description 11/15/2024 1:00 PM BOOKER Lab [facility] [address] [place] [address] Markus Finley MD [address] [place] [address] 11/15/2024 2:00 PM BOOKER Appointment [facility] [address] [place] [address] Markus Finley MD [address] [place] [address] Discharge Disposition: Discharged to home or Selfcare documented as of this encounter Visit Diagnoses Not on filedocumented in this encounter Care Teams Tent Worker Relationship Specialty Start Date End Date Pritesh Chu MD [address] [address] PCP - General Family Medicine 04/18/24 Markus Finley MD [address] [place] [address] Consulting Physician Medical Oncology 04/18/24 documented as of this encounter
--- OUTSIDE RECORDS SUMMARY | 2024-10-26 08:04 | XMS_ITS | Encounter Summary ---
Author Organization [facility] Address [address] [facility] [place] [address] Phone Care Team Providers Care Baker Pie Name Role Phone Pritesh Chu MD Primary Care Provider [phone] Markus Finley MD Unavailable [phone] Encounter Details Date Type Department Care Team (Latest Contact Info) Description 07/10/2024 1:00 PM CDT Clinical Support [facility] Oncology Services [address] [place] [id number] Jenn Medellin [address], [address] [place] [address] Metastatic melanoma (HCC); Hypokalemia due to excessive gastrointestinal loss of potassium Discharge Disposition: Discharged to home or Selfcare Social History Tobacco Use Types Packs/Day Years Used Date Smoking Tobacco: Former Cigarettes 0.5 8.5 S tarted: 04/18/2016 Smokeless Tobacco: Never Alcohol Use Standard Drinks/Week Comments Yes 0 (1 standard drink = 0.6 oz pur e alcohol) [facility] Utilities Answer Date Recorded In the past 12 months has [employer], gas, oil, or water company threatened to [...] often do you attend chur ch or sabianist services? Never 06/27/2024 Do you belong to [...] and heating? Not hard at all 06/27/2024 [facility] - Occupational Stress Questionnaire Answer [...] any time in the past 12 m [facility], were you homeless or living in [...] Sign Reading Time Taken Comments Blood Pressure 135/82 07/10/2024 1:17 PM CDT Pulse 87 07/10/2024 1:17 PM CDT Temperature 36.7 ??C (98 ??F) 07/10/2024 1:17 PM CDT Respiratory Rate 18 07/10/2024 1:17 PM CDT Oxygen Saturation 98% 07/10/2024 1:17 PM CDT Inhaled Oxygen Concentration - - Weight - - Height - - Body Mass Index - - documented in this encounter Miscellaneous Notes * Interdisciplinary - Melba Pitts RN - 07/10/2024 1:00 PM CDT Patient to treatment bay. Pt voiced that she is feeling much better and had a good weekend. 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 Taking Lomotil every 6 hours and diarrhea has been coming and going but is improved. Patient says she even had a small point this weekend where she was not having diarrhea. Pt is eating and drinking well. Reports drinking a 1/2 a pedialyte with medications and drinking water and gaterade in between. Pt reports having 5 episodes of diarrhea since 12am, which is improved. Pt continues daily Predisone and 60 mEq potassium bid. VS obtained. Pt denies dizziness. Per MD, orders to start 20 mEQ potassium in 100 ml NS, while awaiting CMP labs. VS obta ined. Pt port accessed per company policy, flushed without difficulty. Labs drawn per MD orders. Site secured with dressing. IV potassium infusing. Labs resulted. Per MD, potassium back in range. Pt does not have to stay and finish rest of potassium. Pt should continue 60 mg potassium bid and will see in FU on . Pt made aware of plan and very happy with results. Infusion stopped, pt completed about an hour of infusion. Port flushed with NS and heparin and access removed. Site secured with bandaid. Pt aware to call us tomorrow if she has a bad night of frequent episodes of diarrhea andneeds to come in sooner than . Pt left treatment bay safely. documented in this encounter Plan of Treatment Upcoming Encounters Date Type Department Care Team (Late st Contact Info) Description 11/15/2024 1:00 PM PHARMACEUTICAL SERVICE REPRESENTATIVE [facility] [address] [place] [address] Markus Finley MD [address] [place] [address] 11/15/2024 2:00 PM PHARMACEUTICAL SERVICE REPRESENTATIVE [facility] [address] [place] [address] Markus Finley MD [address] [place] [address] Discharge Disposition: Discharged to home or Selfcare documented as of this encounter Procedures Procedure Name Priority Date/Time Associated Diagnosis Comments CMP (COMPREHENSIVE METABOLIC PANEL) STAT 07/10/2024 1:28 PM CDT Metastatic melanoma (HCC) documented in this encounter Results * (ABNORMAL) CMP (COMPREHENSIVE METABOLIC PANEL) (07/10/2024 1:28 PM CDT) SODIUM 133(L) 136 - 145 mmol/L 07/10/2024 1:53 PM CDT [facility] POTASSIUM 3.9 3.5 - 5.1 mmol/L 07/10/2024 1:53 PM CDT [facility] CHLORIDE 109(H) 98 - 107 mmol/L 07/10/2024 1:53 PM CDT [facility] CO2, VENOUS 18(L) 22 - 30 mmol/L 07/10/2024 1:53 PM CDT [facility] ANION GAP 9.9 <18.0 mmol/L 07/10/2024 1:53 PM CDT [facility] GLUCOSE 143(H) 70 - 99 mg/dL 07/10/2024 1:53 PM CDT [facility] BUN 4(L) 5 - 18 mg/dL 07/10/2024 1:53 PM CDT [facility] CREATININE, BLOOD 0.85 0.60 - 1.00 mg/dL 07/10/2024 1:53 PM CDT [facility] BUN/CREATININE RATIO 5(L) 12 - 20 ratio 07/10/2024 1:53 PM CDT [facility] TOTAL PROTEIN 5.8(L) 6.3 - 8.2 g/dL 07/10/2024 1:53 PM CDT [facility] ALBUMIN 3.3(L) 3.5 - 5.0 g/dL 07/10/2024 1:53 PM CDT [facility] A/G RATIO 1.3 1.0 - 2.2 07/10/2024 1:53 PM CDT [facility] CALCIUM 8.6(L) 8.7 - 10.5 mg/dL 07/10/2024 1:53 PM CDT [facility] T BILI 0.4 0.2 - 1.2 mg/dL 07/10/2024 1:53 PM CDT [facility] SGOT (AST) 20 5 - 34 U/L 07/10/2024 1:53 PM CDT [facility] SGPT (ALT) 44 0 - 55 U/L 07/10/2024 1:53 PM CDT [facility] ALKALINE PHOSPHATASE 74 40 - 150 U/L 07/10/2024 1:53 PM CDT [facility] IS THE PATIENT REQUIRED TO BE FASTING? No 07/10/2024 1:53 PM CDT [facility] GFR, ESTIMATED >60 >=60 07/10/2024 1:53 PM CDT [facility] Comment: Creatinine Clearance is the preferred criteria for selecting drug dose adjustments in renally impaired patients. ??The GFR is provided as additional pertinent clinical information. GFR is reported in mL/min/1.73 sq m. Calculation based on the Chronic Kidney Disease Epidemiology Collaboration (CKD- EPI) equation refit without adjustment for race. GFR, EST. >60 >=60 024 1:53 PM CDT [facility] GFR, EST. NONAFRICAN >60 >=60 07/10/2024 1:53 PM CDT [facility] Blood Sub-Q Port Venou s Access Device (Medi-Port, Implanted Port) / Unknown 07/10/2024 1:28 PM CDT 07/10/2024 1:28 PM CDT us Markus Finley MD CHEMISTRY ORDERABLES Jacob al Result [facility] [address] [place] [address] documented in this encounter Visit Diagnoses Diagnosis Metastatic melanoma (HCC) Melanoma of skin, site unspecified Hypokalemia due to excessive gastrointestinal loss of potassium documented in this encounter Administered Medications Inactive Administered Medications - up to 3 most recent administrations Medication Order MAR Action Action Date Dose Rate Site Heparin Na (Pork) Lock Flsh PF SOLN 50 Units 50 Units, Intravenous, ONCE, 1 dose, On Tue07/10/24 at 1330Indications:Metastatic melanoma (HCC),Hypokalemia due to excessive gastrointestinal loss of potassium Given 07/10/2024 2:26 PM CDT 50 Units potassium chloride IVPB 20 mEq 100 mL 20 mEq, Intravenous, ONCE, 1 dose, On Tue07/10/24 at 1400, Administer over 2 Hours, Infuse 20 mEq over 2 hoursIndications:Metastatic melanoma (HCC) New Bag 07/10/2024 1:32 PM CDT 20 mEq documented in this encounter Care Teams Baker Pie Relationship Specialty Start Date End Date Pritesh Chu MD [address] [place] [address] PCP - General Family Medicine 04/18/24 Markus Finley MD [address] [place] [address] Consulting Physician Medical Oncology 04/18/24 documented as of this encounter
--- OUTSIDE RECORDS SUMMARY | 2024-10-26 08:04 | XMS_ITS | Encounter Summary ---
Author Organization [facility] Address [address] [place] [address] Phone Care Team Providers Care Rn Review Name Role Phone Kellen Chu MD Primary Care Provider [phone] Markus Finley MD Unavailable [phone] Reason for Visit * Auth/Cert (Routine) Specialty Diagnoses / Procedures Referred By Delbert t Referred To Contact Diagnoses Sepsis (HCC) Dehydration sepsis Bernardo Petty MD [address] [place] [address] Phone: tel: fax: Referral ID Status Reason Start Date Expiration Date Visits Re quested Visits Authorized [id number] 1 1 Encounter Details Date Type Department Care Team (Late st Contact Info) Description 06/27/2024 8:22 AM CDT - 06/30/2024 6:40 PM CDT Hospital Encounter [facility] Med Surg [address] [place] [address] [phone] Vin Petty Rajnikant K, MD [address] [place] [address] Brayan Petty MD [address] [place] [address] Fever of unknown origin Discharge Disposition: Discharged to home or Selfcare [...] often do you attend chur ch or tenriism services? Never 06/27/2024 Do you belong to any clubs o r organizations such as protestant groups, unions, fraternal or athletic groups, or [...] and heating? Not hard at all 06/27/2024 [facility] - Occupational Stress [...] any time in the past [facility], were you homeless or living in a long term (including now)? No 06/27/2024 Comments No Sex and Gender Information Value Date Recorded Sex Assigned at Female 06/20/2024 8:39 AM CDT Legal Sex Female 9:04 AM CDT Gender Identity Female 06/20/2024 8:39 AM CDT Sexual Orientation Bisexual 06/20/2024 8: 39 AM CDT documented as of this encounter Last Filed Vital Signs Vital Sign Reading Time Taken Comments Blood Pressure 123/91 06/30/2024 1:32 PM CDT Pulse 96 06/30/2024 1:32 PM CDT Temperature 36.2 ??C (97.2 ??F) 06/30/2024 1:32 PM CD T Respiratory Rate 20 06/30/2024 1:32 PM CDT Oxygen Saturation 98% 06/30/2024 1:32 PM CDT Inhaled Oxygen Concentration - - Weight 131.9 kg (290 lb 11.2 oz) 06/27/2024 8:48 AM CDT Height 167.6 cm (5' 6 ) 06/27/2024 8:48 AM CDT Body Mass Index 46.92 06/27/2024 8:48 AM CDT documented in this encounter Functional Status * Audit-C Score Answer Date of Assessment Author 0 06/27/2024 8:53 AM CDT Kaycee Galarza RN * Within the last year, have you been humiliated or emotionally abused in other ways by your partner or ex-partner? Answer Date of Assessment Author No 06/27/2024 8:53 AM NELIAT Kaycee Galarza RN * Within the last year, have you been afraid of your partner or ex-partner? Answer Date of Assessment Author No 06/27/2024 8:53 AM CDT Kaycee Galarza RN * Within the last [...] 8:53 AM NELIAT Kaycee Galarza RN * Question Answer Date of Assessment Author Q1: How often do you have a drink containing alcohol? Never 06/27/2024 8:53 AM NELIAT Kaycee Galaraz RN Q2: How many drinks containing alcohol do you have on a typical day when you are drinking? Patient does not drink 06/27/2024 8:53 AM NELIAT Kaycee Galarza RN Q3: How often do you have six or more drinks on one occasion? Never 06/27/2024 8:53 AM NELIAT Kaycee Galarza RN documented as of this encounter Discharge Summaries * Brayan Petty MD - 06/30/2024 11:05 AM CDT [facility] DISCHARGE SUMMARY Name: Dayanara Hilton Age: 24 y.o. : 2000 Attending Physician: Brayan Petty MD Admission Date/Time: 06/27/2024 Discharge Date: 06/30/2024 Primary Care Physician: KELLEN CHU MD Discharging Provider: Brayan Petty MD INSTRUCTIONS FOR PHYSICIANS ON FOLLOW UP AFTER DISCHARGE: Follow-up with PCP: KELLEN CHU MD in 1 week Recommended Tests/Labs to order at follow-up: None Pending Labs/Path/Imaging: Cultures: Blood culture x2 (06/27/2024) Discharge Instructions: Discharge Condition: improved Disposition: Home Diet: Regular Diet Activity: activity as tolerated Primary Discharge Diagnosis: Fever of unknown origin , ALEXX, diarrhea, hypokalemia, GERD, metastaticmelanoma Discharge Diagnoses: As above Active Hospital Problems Diagnosis Date Noted GERD (gastroesophageal reflux disease) [K21.9] 06/27/2024 Metastatic melanoma (HCC) [C43.9] 04/18/2024 Resolved Hospital Problems Diagnosis Date Noted Date Resolved Fever of unknown origin [R50.9] 06/27/2024 06/30/2024 Acute kidney injury (HCC) [N17.9] 06/27/2024 06/30/2024 Diarrhea [R19.7] 06/27/2024 06/30/2024 Hypokalemia [E87.6] 06/27/2024 06/30/2024 Admitting Diagnoses: As above HOSPITAL COURSE: Dayanara Hilton was admitted 06/27/2024 with Fever of unknown origin . Surgeries performed during stay: * No surgery found * Consults: Treatment Team: Consulting Physician: Violetta Mcdonald MD Patient was admitted on 06/27/2024 for evaluation of fever. Patient has a history of metastatic melanoma, and patient has been receiving chemotherapy. As per coordination with Oncology infectious disease physician, patient received IV antibiotic therapy while awaiting blood culture testing results.Vital signs remained stable fevers have resolved. Blood culture testing x2 (06/27/2024) are pendingby time of discharge and will be followed up by PCP and oncologist. As part of management coordination with oncologist, patient was prescribed prednisone taper regimen in conjunction with oral antibiotics with Omnicef 300 mg b.i.d. and Flagyl 500 mg t.i.d., 4 days each concurrently. Patient follow-up with PCP in 1 week and with oncologist on 07/03/2024. Exam Day of Discharge: Temp Av.3 ??F (36.3 ??C) Min: 96.9 ??F (36.1 ??C) Max: 97.7 ??F (36.5 ??C) BP Min: 135/69 Max: 146/98 Pulse Av.5 Min: 64 Max: 85 Heart Rate (Monitor) Av.5 Min: 55 Max: 90 Resp Av Min: 18 Max: 18 SpO2 Av % Min: 97 % Max: 99 % General: alert, and in no distress. [...] Review: Lab Results Component Value Date WBC 10.07 06/30/2024 HEMOGLOBIN 16.2 (H) 06/30/2024 HEMATOCRIT 47.1 (H) 06/30/2024 PLATELETCNT 307 06/30/2024 MCV 85.8 06/30/2024 Lab Results Component Value Date SODIUM 137 06/30/2024 POTASSIUM 3.6 06/30/2024 CHLORIDE 110 (H) 06/30/2024 CO2VEN 15 (L) 06/30/2024 ANIONGAP 15.6 06/30/2024 GLUCOSE 82 06/30/2024 BUN 7 06/30/2024 CREATININE 0.87 06/30/2024 BCRATIO8 8 (L) 06/30/2024 TOTALPROTEIN 6.0 (L) 06/27/2024 ALBUMIN 3.3 (L) 06/27/2024 CALCIUM 9.6 06/30/2024 TBIL 0.6 06/27/2024 SGOTAST 15 06/27/2024 SGPTALT 39 06/27/2024 ALKALINEPHO 57 06/27/2024 GFRNA >60 06/30/2024 GFRA >60 06/30/2024 No results found for: GLUCOSEPOCT Lab Results Component Value Date INR 1.1 06/27/2024 PTP 14.1 06/27/2024 No results found for: HGBA1C No results found for: [id number] No results found for: CPK , CPKI , CKMB , CKMBNI , CKMBPOCT , CKMBRELINDX , TROPONINI , POCTRP No results found for: FERRITIN No results found for: FOLATE No results found for: PHARTERIAL , PO2ART , [id number] , CO2ART , O2ART Lab Results Component Value Date LACTICA 0.9 06/29/2024 XR CHEST SINGLE VIEW PORTABLE Result Date: 06/27/2024 IMPRESSION: No acute pulmonary process. DISCHARGE MEDICATION LIST: Medication List START taking these medications cephALEXin 500 MG Caps Commonly known as: KEFLEX Take 1 Capsule by mouth 3 times daily for 4 days. metroNIDAZOLE 500 MG Tabs Commonly known as: FLAGYL Take 1 Tablet by mouth 3 times daily for 4 days. predniSONE 5 MG Tabs Commonly known as: DELTASONE Take by mouth: 6 tabs on day 1, 5 tabs on day 2, 4 tabs on day 3, 3 tabs on day 4, 2 tabs on day 5,1 tab on last day Start taking on: July 01, 2024 CONTINUE taking these medications diphenoxylate-atropine 2.5-0.025 MG Tabs Commonly known as: LOMOTIL Take 1 Tablet by mouth 4 times daily as needed for Diarrhea for up to 14 days. 1-20 MG-MCG(24) Tabs Generic drug: Norethin Wilfredo-Eth Estrad-FE omeprazole 40 MG Cap-del-rel Commonly known as: PriLOSEC TAKE 1 CAPSULE BY MOUTH DAILY Zofran 4 MG Tabs Generic drug: ondansetron Where to Get Your Medications Information about where to get these medications is not yet available Ask your nurse or doctor about these medications cephALEXin 500 MG Caps metroNIDAZOLE 500 MG Tabs predniSONE 5 MG Tabs Time spent on interview, examination, final orders, recommendations, and care coordination for thishospital discharge: Greater than 30 minutes spent in coordinating care --- 33 minutes Thank you very much for allowing the [facility] Adult Hospitalist Service to participate in the care of this patient. If you have any questions, please don't hesitate to call. Signed: Brayan Petty MD, 06/30/2024, 11:05 AM CDT documented in this encounter Discharge Instructions * Appointments* Brayan Petty MD - 06/30/2024 11:05 AM CDT Follow-up blood culture x2 (06/27/2024) with PCP and oncologist Complete course of prednisone taper Complete course of oral antibiotics with Omnicef 300 mg b.i.d. + Flagyl 500 mg t.i.d., x4 days each, concurrently Follow up with PCP 1 week Follow up with oncologist already scheduled for 07/03/2024 documented in this encounter Medications at Time of Discharge 1-20 MG-MCG(24) Tablet Take 1 Tablet by mouth daily. 02/29/2024 cefdinir (OMNICEF) 300 MG Capsule Take 1 Capsule by mouth 2 times daily for 4 days. 8 Capsule 06/30/2024 07/04/2024 diphenoxylate-at ropine (LOMOTIL) 2.5-0.025 MG TabletIndication s:Diarrhea due to drug Take 1 Tablet by mouth 4 times daily as needed for Diarrhea for up to 14 days. 30 Tablet 06/26/2024 07/10/2024 metroNIDAZOLE (FLAGYL) 500 MG Tablet Take 1 Tablet by mouth 3 times daily for 4 days. 12 Tablet 06/30/2024 07/04/2024 omeprazole (PriLOSEC) 40 MG CAPSULE DELAYED RELEASE TAKE 1 CAPSULE BY MOUTH DAILY 90 Capsule 06/25/2024 08/14/2024 ondansetron (Zofran) 4 MG Tablet Take 4 mg by mouth every 8 hours as needed for Nausea - 1st line. 08/03/2024 predniSONE (DELTASONE) 5 MG Tablet Take by mouth: 6 tabs on day 1, 5 tabs on day 2, 4 tabs on day 3, 3 tabs on day 4, 2 tabs on day 5, 1 tab on last day 21 Tablet 07/01/2024 07/03/2024 documented as of this encounter Progress Notes * Brayan Petty MD - 06/30/2024 6:40 PM CDT Request for Documentation Clarification [facility] Dayanara Hilton ; VISIT [id number] Query Response Sent: 07/06/24 11:00 CDT From: BRAYAN PETTY MD Query question: Based on the information found within the medical record a diagnosis of (condition)sepsis documented on (date) H&P can you please clarify the status of this condition: Provider response: Condition was ruled out Original Query Sent: 07/06/24 10:48 CDT From: Priya Aceves To: BRAYAN PETTY MD By submitting this query, we are seeking further clarification of documentation to accurately reflect all conditions that you monitored, evaluated, treated, or that may have extended the hospitalization or utilization of additional resources for care. Based on the information found within the medical record a diagnosis of (condition) sepsis documented on (date) H&P can you please clarify the status of this condition: * Condition was ruled out * Condition is current * Condition is an insignificant finding * Condition was evident and is now resolved * Condition is integral to another condition * Other explanation of clinical findings Clinical Information * Patient Summary: H&P - Dayanara Hilton is a 24 y.o. female with a PMHx of melanoma of the left foot and GERD who was transferred from [facility] as a direct admission for further management of possible sepsis. The patient has a history of melanoma to the dorsal aspect of the left foot for which she is under the care of Dr. Finley and is receiving immunotherapy. Patient states her last treatment was on 06/12/2024. The patient developed diarrhea on 06/14 that has persisted since onset. With the patient currently receiving treatment for melanoma, the concern for sepsis was increased.She was started on vancomycin and cefepime, and was subsequently transferred here to [facility] for further management. * Drugs/Treatment: Maxipime; Vanco * Signs/Symptoms: SIRS Criteria DATE: 06/27 WBC: 6.20 HR: 130 RR: 20 TEMP: 100.2 (06/28) * Brayan Petty MD - 06/29/2024 9:40 PM CDT [facility] PROGRESS NOTE Dayanara Hilton is a 24 y.o. female at Hospital LOS: 2 days Assessment: Active Hospital Problems Diagnosis Date Noted Fever of unknown origin 06/27/2024 Acute kidney injury (HCC) 06/27/2024 Diarrhea 06/27/2024 Hypokalemia 06/27/2024 GERD (gastroesophageal reflux disease) 06/27/2024 Metastatic melanoma (HCC) 04/18/2024 Resolved Hospital Problems No resolved problems to display. Vitals: 06/29/24 1700 06/29/24 1900 06/29/24 1944 06/29/24 2101 Temp: 96.9 ??F (36.1 ??C) TempSrc: Temporal Heart Rate (Monitor): 65 90 70 Pulse: 85 Resp: 18 BP: (!) 146/98 Height: Weight: SpO2: 97% I/O last 3 completed shifts: In: 3491.7 [I.V.:2591.7; IV Piggyback:900] Out: - Plan: Plan Fever of unknown etiology Hx of melanoma on immunotherapy -Tmax 101.8 x2 days with associated N/V/D. -Receiving immunotherapy for melanoma of left foot, last treatment 06/12/2024. Managed by Dr Finley. -WBC 9, lactic acid 1.5. -Negative for Covid, RSV, and influenza. CXR with no acute abnormality. -UA unremarkable. -CT scan abd/pelvis showed right lower quadrant and mesenteric lymph nodes which could be seen in mesenteric adenitis, otherwise no acute findings. -Started on cefepime and vancomycin at the outside hospital, will continue pending blood cultures. -Consider oncology consultation. 06/28/2024 --- per discussion with Oncology, findings could be attributed to side effects associated with chemotherapy. At present time, patient received 1 dose of IV steroids in continuation of IV antibiotic therapy. Infectious Disease consultation obtained with management recommendations provided. No growth to date and blood culture testing x2. 06/29/2024 --- improvement in abdominal pain symptoms with current management. No growth to date and blood culture testing x2. Continue current management reassess Acute kidney injury -Most likely 2/2 dehydration. -Cr/BUN/GFR 1.10//60. -Baseline Cr/BUN/GFR 0.73/12/60. -Avoid nephrotoxic agents/insults and hypoperfusion. -IVF. -Strict I&Os. -Monitor electrolytes. -Optimize BP control, avoid hypotension. -Monitor BMP. 06/28/2024 --- normalized Diarrhea -Possibly due to receipt of immunotherapy with symptom onset 2 days post immunotherapy. -CT abd/pelvis as above. -Stool negative for C diff. Hypokalemia -K 3.1. -Potassium replacement ordered. -Monitor on telemetry. -Repeat BMP in a.m. 06/28/2024 --- noted once again. Further supplements provided. Pending reassessment 06/29/2024 --- noted with a.m. labs. Further supplements provided reassessment in a.m. GERD- continue PPI. Code Status: CPR-Full Treatment DVT Prophylaxis: Lovenox 40mg every 12 hours Consult with: None Expected discharge date: 07/02/2024 Subjective: Interval History: Patient seen at bedside. No new complaints referred. Review of Systems: A 14 point comprehensive review of systems was negative, except as documented in HPI. Objective: Exam: General: alert, oriented and in no acute distress. Skin: Skin lesion on left foot stable. HEENT: normocephalic, atraumatic. Pupils equal, round and [...] results found for: PHARTERIAL , PO2ART , [id number] , CO2ART , O2ART Lab Results Component Value Date WBC 7.39 06/29/2024 HEMOGLOBIN 13.5 06/29/2024 HEMATOCRIT 39.5 06/29/2024 PLATELETCNT 273 06/29/2024 MCV 85.9 06/29/2024 Lab Results Component Value Date SODIUM 134 (L) 06/29/2024 POTASSIUM 3.3 (L) 06/29/2024 CHLORIDE 110 (H) 06/29/2024 CO2VEN 14 (L) 06/29/2024 ANIONGAP 13.3 06/29/2024 GLUCOSE 90 06/29/2024 BUN 7 06/29/2024 CREATININE 0.83 06/29/2024 BCRATIO8 8 (L) 06/29/2024 TOTALPROTEIN 6.0 (L) 06/27/2024 ALBUMIN 3.3 (L) 06/27/2024 CALCIUM 8.7 06/29/2024 TBIL 0.6 06/27/2024 SGOTAST 15 06/27/2024 SGPTALT 39 06/27/2024 ALKALINEPHO 57 06/27/2024 GFRNA >60 06/29/2024 GFRA >60 06/29/2024 No results found for: CPK , CPKI , CKMB , CKMBNI , CKMBPOCT , CKMBRELINDX , TROPONINI , POCTRP No results found for: FOLATE Lab Results Component Value Date LACTICA 0.9 06/29/2024 No results found for: [id number] No results found for: FERRITIN No results found for: GLUCOSEPOCT EKG: No results found. Imaging: No results found. By: Brayan Petty MD, 06/29/2024 9:40 PM CDT * Brayan Petty MD - 06/28/2024 10:12 PM CDT [facility] PROGRESS NOTE Dayanara Hilton is a 24 y.o. female at Hospital LOS: 1 day Assessment: Active Hospital Problems Diagnosis Date Noted Fever of unknown origin 06/27/2024 Acute kidney injury (HCC) 06/27/2024 Diarrhea 06/27/2024 Hypokalemia 06/27/2024 GERD (gastroesophageal reflux disease) 06/27/2024 Metastatic melanoma (HCC) 04/18/2024 Resolved Hospital Problems No resolved problems to display. Vitals: 06/28/24 1702 06/28/24 1902 06/28/24 1939 06/28/24 2101 Temp: 97.8 ??F (36.6 ??C) TempSrc: Tympanic Heart Rate (Monitor): 86 83 80 Pulse: 78 Resp: 18 BP: 148/83 Height: Weight: SpO2: 98% I/O last 3 completed shifts: In: 3335.4 [P.O.:1000; I.V.:2235.4; IV Piggyback:100] Out: - Plan: Plan Fever of unknown etiology Hx of melanoma on immunotherapy -Tmax 101.8 x2 days with associated N/V/D. -Receiving immunotherapy for melanoma of left foot, last treatment 06/12/2024. Managed by Dr Finley. -WBC 9, lactic acid 1.5. -Negative for Covid, RSV, and influenza. CXR with no acute abnormality. -UA unremarkable. -CT scan abd/pelvis showed right lower quadrant and mesenteric lymph nodes which could be seen in mesenteric adenitis, otherwise no acute findings. -Started on cefepime and vancomycin at the outside hospital, will continue pending blood cultures. -Consider oncology consultation. 06/28/2024 --- per discussion with Oncology, findings could be attributed to side effects associated with chemotherapy. At present time, patient received 1 dose of IV steroids in continuation of IV antibiotic therapy. Infectious Disease consultation obtained with management recommendations provided. No growth to date and blood culture testing x2. Acute kidney injury -Most likely 2/2 dehydration. -Cr/BUN/GFR 1.10/60. -Baseline Cr/BUN/GFR 0.73/1260. -Avoid nephrotoxic agents/insults and hypoperfusion. -IVF. -Strict I&Os. -Monitor electrolytes. -Optimize BP control, avoid hypotension. -Monitor BMP. 06/28/2024 --- normalized Diarrhea -Possibly due to receipt of immunotherapy with symptom onset 2 days post immunotherapy. -CT abd/pelvis as above. -Stool negative for C diff. Hypokalemia -K 3.1. -Potassium replacement ordered. -Monitor on telemetry. -Repeat BMP in a.m. 06/28/2024 --- noted once again. Further supplements provided. Pending reassessment GERD- continue PPI. Code Status: CPR-Full Treatment DVT Prophylaxis: Lovenox 40mg every 12 hours Consult with: None Expected discharge date: 07/02/2024 Subjective: Interval History: Patient seen at bedside. No new complaints referred. Low-grade fevers noted over prior night. On further questioning, patient refers similar events having occurred associated with chemotherapy. Oncology consultation obtained with further discussions for management coordinated. Review of Systems: A 14 point comprehensive review of systems was negative, except as documented in HPI. Objective: Exam: General: alert, oriented and in no acute distress. Skin: Skin lesion on left foot stable. HEENT: normocephalic, atraumatic. Pupils equal, round and [...] results found for: PHARTERIAL , PO2ART , [id number] , CO2ART , O2ART Lab Results Component Value Date WBC 7.02 06/28/2024 HEMOGLOBIN 14.3 06/28/2024 HEMATOCRIT 41.4 06/28/2024 PLATELETCNT 282 06/28/2024 MCV 85.2 06/28/2024 Lab Results Component Value Date SODIUM 134 (L) 06/28/2024 POTASSIUM 3.0 (L) 06/28/2024 CHLORIDE 109 (H) 06/28/2024 CO2VEN 16 (L) 06/28/2024 ANIONGAP 12.0 06/28/2024 GLUCOSE 95 06/28/2024 BUN 6 06/28/2024 CREATININE 0.75 06/28/2024 BCRATIO8 8 (L) 06/28/2024 TOTALPROTEIN 6.0 (L) 06/27/2024 ALBUMIN 3.3 (L) 06/27/2024 CALCIUM 8.5 (L) 06/28/2024 TBIL 0.6 06/27/2024 SGOTAST 15 06/27/2024 SGPTALT 39 06/27/2024 ALKALINEPHO 57 06/27/2024 GFRNA >60 06/28/2024 GFRA >60 06/28/2024 No results found for: CPK , CPKI , CKMB , CKMBNI , CKMBPOCT , CKMBRELINDX , TROPONINI , POCTRP No results found for: FOLATE Lab Results Component Value Date LACTICA 1.5 06/27/2024 No results found for: [id number] No results found for: FERRITIN No results found for: GLUCOSEPOCT EKG: No results found. Imaging: No results found. By: Brayan Petty MD, 06/28/2024 10:14 PM CDT documented in this encounter H&P Notes * Debo Keenan APRN, [employer] - 06/27/2024 11:52 AM CDT HOSPITALIST ADMISSION HISTORY & PHYSICAL EXAM PATIENT NAME: Dayanara Hilton, : 2000, MR#[id number] CHIEF COMPLAINT Fever, vomiting HPI Dayanara Hilton is a 24 y.o. female with a PMHx of melanoma of the left foot and GERD who was transferred from [facility] as a direct admission for further management of possible sepsis. Thepatient has a history of melanoma to the dorsal aspect of the left foot for which she is under the care of Dr. Finley and is receiving immunotherapy. Patient states her last treatment was on 06/12/2024. The patient developed diarrhea on 06/14 that has persisted since onset. She reports generalized weakness and fatigue for the past week, with fever, vomiting, abdominal pain, and oliguria that began 1-2 days ago. Patient presented to the emergency room at [facility] for evaluation last night. She states her temperature has been as high as 101.8. She denies chest pain, shortness of breath, and cough. Describes her abdominal discomfort as muscle soreness. She denies hematemesis and blood in her stool. During the ED evaluation at outside hospital, lab analysis revealed WBC 9 with 15% bands, H/H 16.7/47.4, platelets 382, sodium 132, potassium 3.4, chloride 99, CO2 17, BUN 13, creatinine 1.1, and glucose 137. Her lactic acid was normal at 1.5. The urinalysis was unremarkable and stool negative for C diff. The patient was negative for COVID, RSV, and influenza, and the chest x-ray showed no acute abnormality. A CT scan of the abdomen/pelvis with IV contrast was done which showed right lower quadrant and mesenteric lymph nodes that may be seen with mesenteric adenitis, without evidence of appendicitis, bowel obstruction, inflammation, hydronephrosis, or renal calculus. With the patient currently receiving treatment for melanoma, the concern for sepsis was increased. She was started on vancomycin and cefepime, and was subsequently transferred here to [facility] for further management. HOME MEDICATIONS: Prior to Admission Medications Prescriptions Last Dose Informant Patient Reported? Taking? 1-20 MG-MCG(24) Tablet 06/20/2024 Yes Yes Sig: Take 1 Tablet by mouth daily. diphenoxylate-atropine (LOMOTIL) 2.5-0.025 MG Tablet 06/26/2024 No Yes Sig: Take 1 Tablet by mouth 4 times daily as needed for Diarrhea for up to 14 days. omeprazole (PriLOSEC) 40 MG CAPSULE DELAYED RELEASE 06/20/2024 No Yes Sig: TAKE 1 CAPSULE BY MOUTH DAILY ondansetron (Zofran) 4 MG Tablet 06/20/2024 Yes Yes Sig: Take 4 mg by mouth every 8 hours as needed for Nausea - 1st line. Facility-Administered Medications: None ALLERGIES: Allergies There is no known ICA information for this patient. REVIEW OF SYSTEMS: Review of Systems Constitutional: Positive for fever. Gastrointestinal: Positive for abdominal pain, diarrhea, nausea and vomiting. Genitourinary: Oliguria Neurological: Positive for weakness. All other systems reviewed and are negative. PAST MEDICAL HISTORY She has a past medical history of Depression, Melanoma (HCC), Miscarriage (07/09/2022), Miscarriage(12/2022), Non-alcoholic fatty liver disease, and Obesity. PAST SURGICAL HISTORY: has a past surgical history that includes Appendectomy (2005); Skin Graft (08/25/2023); and ONC Access Portacath. FAMILY HISTORY: family history includes Chronic Obstructive Pulmonary Disease in her father; Prostate Cancer in herfather. SOCIAL HISTORY : reports that she has quit smoking. Her smoking use included cigarettes. She started smoking about 8years ago. She has a 4.1 pack-year smoking history. She has never used smokeless tobacco. She reports current alcohol use. She reports that she does not currently use drugs after having used the following drugs: Marijuana. PHYSICAL EXAM : VITALS: BP 136/74 Pulse 101 Temp 98 ??F (36.7 ??C) (Tympanic) Resp 18 Ht 5' 6 (1.676 m) Wt 290 lb 11.2 oz (131.9 kg) SpO2 99% BMI 46.92 kg/m?? Temp (24hrs), Av.5 ??F (36.9 ??C), Min:98 ??F (36.7 ??C), Max:98.9 ??F (37.2 ??C) Weight: Wt Readings from Last 1 Encounters: 06/27/24 290 lb 11.2 oz (131.9 kg) Body mass index is 46.92 kg/m??. EXAM: Physical Exam Constitutional: General: She is awake. She is not in acute distress. Appearance: She is obese. She is not ill-appearing. HENT: Head: Normocephalic and atraumatic. Mouth/Throat: Lips: [place]. Mouth: Mucous membranes are moist. Eyes: General: Lids are normal. Extraocular Movements: Extraocular movements intact. Cardiovascular: Rate and Rhythm: Normal rate and regular rhythm. Pulmonary: Effort: Pulmonary effort is normal. Breath sounds: Normal breath sounds. Abdominal: General: Bowel sounds are decreased. There is no distension. Palpations: Abdomen is soft. Tenderness: There is no abdominal tenderness. Musculoskeletal: Cervical back: Normal range of motion and neck supple. Right lower leg: No edema. Left lower leg: No edema. Skin: General: Skin is warm and dry. Coloration: Skin is pale. Neurological: General: No focal deficit present. Mental Status: She is alert and oriented to person, place, and time. GCS: GCS eye subscore is 4. GCS verbal subscore is 5. GCS motor subscore is 6. Cranial Nerves: Cranial nerves 2-12 are intact. Psychiatric: Behavior: Behavior is cooperative. DATA REVIEW : No results found. EKG: UA: No results found for this or any previous visit. CBC: Lab Results Component Value Date WBC 6.20 06/27/2024 RBC 5.16 06/27/2024 HEMOGLOBIN 15.2 06/27/2024 HEMATOCRIT 44.4 06/27/2024 PLATELETCNT 333 06/27/2024 CMP: Lab Results Component Value Date SODIUM 136 06/27/2024 POTASSIUM 3.1 (L) 06/27/2024 CHLORIDE 105 06/27/2024 CO2VEN 19 (L) 06/27/2024 ANIONGAP 15.1 06/27/2024 GLUCOSE 112 (H) 06/27/2024 BUN 10 06/27/2024 CREATININE 1.10 (H) 06/27/2024 BCRATIO8 9 (L) 06/27/2024 TOTALPROTEIN 6.0 (L) 06/27/2024 ALBUMIN 3.3 (L) 06/27/2024 CALCIUM 8.7 06/27/2024 TBIL 0.6 06/27/2024 SGPTALT 39 06/27/2024 ALKALINEPHO 57 06/27/2024 GFRNA >60 06/27/2024 GFRA >60 06/27/2024 Coagulation: Lab Results Component Value Date PTP 14.1 06/27/2024 INR 1.1 06/27/2024 Cardiac markers: No results found for: CPK , CPKI , CKMB , CKMBNI , CKMBPOCT , CKMBRELINDX , TROPONINI , POCTRP ABGs: No results found for: PHARTERIAL , CO2ART , NEU6LQN , PO2ART , O2ART Mg: No results found for: MAGNESIUM BNP: No results found for: NTPROBNP Thyroid: Lab Results Component Value Date TSH 0.100 (L) 06/12/2024 T4FREE 0.8 06/12/2024 T4FREE 0.8 06/12/2024 Anti-Epileptics: No results found for: DILANTIN , ADJUSTEDDILA , PHENOBARBITA , VALP2 , VALPROICACTT , CARBAM , LAMI1 , ETHO1 , FEL1 , GABAPENTIN , LEVET1 , PRPH1 , TOPAR1 , ZONI1 , CLONS1 , OXCAM1 Rheumatology: No results found for: CRP , ESR , BARRETT Calcium-Ionized: No results found for: CALCIUMIONIZ Outside reports reviewed: ER records, radiology reports, lab reports, xray reports, historical medical records. ASSESSMENT: Active Hospital Problems Diagnosis Date Noted Fever of unknown origin 06/27/2024 Acute kidney injury (HCC) 06/27/2024 Diarrhea 06/27/2024 Hypokalemia 06/27/2024 GERD (gastroesophageal reflux disease) 06/27/2024 Metastatic melanoma (HCC) 04/18/2024 Resolved Hospital Problems No resolved problems to display. PLAN: Fever of unknown etiology Hx of melanoma on immunotherapy -Tmax 101.8 x2 days with associated N/V/D. -Receiving immunotherapy for melanoma of left foot, last treatment 06/12/2024. Managed by Dr Finley. -WBC 9, lactic acid 1.5. -Negative for Covid, RSV, and influenza. CXR with no acute abnormality. -UA unremarkable. -CT scan abd/pelvis showed right lower quadrant and mesenteric lymph nodes which could be seen in mesenteric adenitis, otherwise no acute findings. -Started on cefepime and vancomycin at the outside hospital, will continue pending blood cultures. -Consider oncology consultation. Acute kidney injury -Most likely 2/2 dehydration. -Cr/BUN/GFR 1.10/10/60. -Baseline Cr/BUN/GFR 0.73/12/60. -Avoid nephrotoxic agents/insults and hypoperfusion. -IVF. -Strict I&Os. -Monitor electrolytes. -Optimize BP control, avoid hypotension. -Monitor BMP. Diarrhea -Possibly due to receipt of immunotherapy with symptom onset 2 days post immunotherapy. -CT abd/pelvis as above. -Stool negative for C diff. Hypokalemia -K 3.1. -Potassium replacement ordered. -Monitor on telemetry. -Repeat BMP in a.m. GERD- continue PPI. Home meds to be resumed as appropriate. Other changes to meds to be made based on progress during hospitalization. Code Status: CPR-Full Treatment DVT Prophylaxis: Lovenox 40mg every 12 hours Consult with: None Advance Care Planning: Aggregate face to face time discussing end of life advance care planning with patient and/or family and/or Power of Diesel Locomotive Engineer approximately 16 minutes. Discussed CPR/Intubation/Treatment Goals/Quality of life/Intensity of Care. Patient desires: CPR-Full Treatment Debo Keenan APRN, CNP 06/27/2024 8:06 PM CDT Primary Care Physician: KELLEN CHU MD Cosigned by Brayan Petty MD at 06/28/2024 10:09 PM CDT Associated attestation - Brayan Petty MD - 06/28/2024 10:09 PM CDT I collaborated in the care of this patient with the REBECCA/TEA. I did not personally examine this patient. I agree with the HOSE TENDER/PA???s findings and defer to the attached note. I have the following additions/revisions: --- documented in this encounter Consult Notes * Violetta Mcdonald MD - 06/28/2024 9:24 AM CDT INFECTIOUS DISEASE CONSULT Dayanara Hilton was admitted on 06/27/2024. I was asked to see the patient and provide recommendations for management of fever. HPI Patient is a 24-year-old female with a past medical history left foot melanoma status post immunotherapy was a direct admit to the hospital for having increasing nausea vomiting and loose stools. Patient had her last treatment on 06/12. According to the patient this is her 3rd treatment and had similar symptoms previously as well. Patient then started having some weakness in went to [facility]. She did have a temperature of 101.8??. In the emergency room here her WBC was 9 with a creatinine of 1.1. Patient did undergo a CT scan of the abdomen pelvis which showed right lower quadrant and mesenteric lymph nodes otherwise benign. In the hospital here initially patient had a temperature of 98.2?? but then did have a temperature of 100.2?? as well she was started on broad-spectrum antibiotics and we are being asked to this patient for the above reasons. INPATIENT MEDS: ceFEPIme (MAXIPIME) IV, 2 g, Q8H enoxaparin, 40 mg, Q12H EDWIN famotidine (PEPCID) IV, 20 mg, BID pantoprazole, 40 mg, QAM AC vancomycin, 15 mg/kg, Q24H acetaminophen, 650 mg, Q4H PRN Or acetaminophen, 650 mg, Q4H PRN melatonin, 6 mg, Nightly PRN metoclopramide, 10 mg, Q6H PRN nicotine, 1 Patch, Daily PRN ondansetron, 4 mg, Q6H PRN sodium chloride, Last Rate: 125 mL/hr at 06/28/24 0349 ALLERGIES: Allergies There is no known ICA information for this patient. REVIEW OF SYSTEMS: All Review of Systems obtained, and is negative other than that mentioned in the History of PresentIllness. PAST MEDICAL HISTORY has a past medical history of Depression, Melanoma (HCC), Miscarriage (07/09/2022), Miscarriage (12/2022), Non-alcoholic fatty liver disease, and Obesity. PAST SURGICAL HISTORY: has a past surgical history that includes Appendectomy (2005); Skin Graft (08/25/2023); and ONC Access Portacath. FAMILY HISTORY: family history includes Chronic Obstructive Pulmonary Disease in her father; Prostate Cancer in herfather. SOCIAL HISTORY : reports that she has quit smoking. Her smoking use included cigarettes. She started smoking about 8years ago. She has a 4.1 pack-year smoking history. She has never used smokeless tobacco. She reports current alcohol use. She reports that she does not currently use drugs after having used the following drugs: Marijuana. PHYSICAL EXAM : VITALS: Vitals: 06/27/24202206/27/24 2055 06/28/24 0537 06/28/24 0727 BP: 159/84 130/65 Pulse: Resp: Temp: 100 ??F (37.8 ??C) 100.2 ??F (37.9 ??C) TempSrc: SpO2: 99% 98% 98% 99% Weight: Height: General: alert, oriented and in no acute distress. Skin: normal coloration and turgor, no rashes, no suspicious skin lesions noted. HEENT: normocephalic, atraumatic. Pupils equal, round and reactive to light. Extraocular movements intact. [place]ronasopharynx pink and moist. Neck: No JVD, No mass or lymphadenopathy. CVS: normal rate, regular rhythm, normal S1, S2, no murmurs, rubs, RRR, S1/S2 normal Chest: clear to auscultation,no wheezes, rales or rhonchi, symmetric air entry and normal respiratory effort. Abdominal: soft, nontender, nondistended. Positive Bowel sounds, no organomegaly appreciated. Extremities: peripheral pulses normal, no pedal edema, Neuro: alert, oriented, normal speech, no focal findings or movement disorder noted, cranial nervesII through XII intact, DTR's normal and symmetric, motor and sensory grossly normal bilaterally, DATA REVIEW : CBC: Lab Results Component Value Date WBC 7.02 06/28/2024 HEMOGLOBIN 14.3 06/28/2024 HEMATOCRIT 41.4 06/28/2024 PLATELETCNT 282 06/28/2024 Lab Results Component Value Date SODIUM 134 (L) 06/28/2024 POTASSIUM 3.0 (L) 06/28/2024 CHLORIDE 109 (H) 06/28/2024 CO2VEN 16 (L) 06/28/2024 GLUCOSE 95 06/28/2024 ANIONGAP 12.0 06/28/2024 BUN 6 06/28/2024 CREATININE 0.75 06/28/2024 CALCIUM 8.5 (L) 06/28/2024 No results found for: CRP XR CHEST SINGLE VIEW PORTABLE Result Date: 06/27/2024 IMPRESSION: No acute pulmonary process. Cultures 06/27 blood cultures negative 06/27 C diff pending 06/27 chest x-ray Negative ASSESSMENT: 1. Nausea vomiting and diarrhea 2. Possible drug-induced colitis 3. Low-grade fever 4. Obesity 5. Left foot melanoma PLAN: 1. Continue IV vanc and cefepime for now 2. Check UA and culture 3. C diff pending will follow 4. Blood cultures negative 5. Check EBV, CMV Thank you for this consult. More recommendations will be made as appropriate based on progress during hospitalization. Violetta Mcdonald MD 49:25 AM CDT Primary Care Physician: KELLEN CHU MD documented in this encounter Miscellaneous Notes * Interdisciplinary - Sherley Dyer RN - 06/30/2024 6:40 PM CDT Patient dressed and ready to leave. Patient left floor via wheelchair with all belongings, stable. * Interdisciplinary - Sherley Dyer RN - 06/30/2024 6:05 PM CDT Patient dressed and ready to leave. Patient education given on discharge instructions, discharge medications, and follow up appointment. Patient states understanding and has no questions at this time, All paperwork given to patient. IV site d/c'd. Patient currently waiting on ride home. * Plan of Care - Sherley Dyer RN - 06/30/2024 12:08 PM CDT Problem: Adult Inpatient Plan of Care Goal: Plan of Care Review Outcome: Outcome Achieved Goal: Optimal Comfort and Wellbeing Outcome: Outcome Achieved Goal: Readiness for Transition of Care Outcome: Outcome Achieved Problem: Pain Acute Goal: Optimal Pain Control and Function Outcome: Outcome Achieved Problem: Nausea and Vomiting Goal: Nausea and Vomiting Relief Outcome: Outcome Achieved * Interdisciplinary - Sherley Dyer RN - 06/30/2024 9:15 AM CDT Patient sitting up in bed, just ordered breakfast. Patient took all morning medications and tolerated well. Denies pain and discomfort. States feels much better today. No acute distress noted. All fall and safety precautions in place. Will continue to assess. * Plan of Care - Nell Sinha RN - 06/30/2024 3:06 AM CDT Problem: Adult Inpatient Plan of Care Goal: Plan of Care Review Outcome: Ongoing (see interventions/notes) Flowsheets (Taken 06/30/2024 0305) Plan of Care Reviewed With: patient Progress: improving Today's Goal: No nausea or vomiting Outcome Evaluation: No c/o nausea/vomiting. Tolerating regular diet. Blood cultures negative to date Does the patient need assistance with discharge and/or transitioning to the next level of care?: Yes, case management already following Goal: Optimal Comfort and Wellbeing Outcome: Ongoing (see interventions/notes) Intervention: Monitor Pain and Promote Comfort Flowsheets (Taken 06/29/2024 3584) Pain Management Interventions: care clustered quiet environment facilitated relaxation techniques promoted Intervention: Provide Person-Centered Care Flowsheets (Taken 06/29/2024 9308) Trust Relationship/Rapport: care explained choices provided questions answered safe/supportive environment facilitated thoughts/feelings acknowledged Goal: Readiness for Transition of Care Outcome: Ongoing (see interventions/notes) Problem: Pain Acute Goal: Optimal Pain Control and Function Outcome: Ongoing (see interventions/notes) Intervention: Prevent or Manage Pain Flowsheets Taken 06/30/2024 0305 Sensory Stimulation Regulation: quiet environment promoted care clustered Taken 06/29/2024 2338 Bowel Elimination Promotion: adequate fluid intake promoted Medication Review/Management: medications reviewed Intervention: Optimize Psychosocial Wellbeing Flowsheets Taken 06/30/2024 0305 Supportive Measures: active listening utilized self-care encouraged relaxation techniques promoted Taken 06/29/2024 2338 Diversional Activities: television smartphone Problem: Nausea and Vomiting Goal: Nausea and Vomiting Relief Outcome: Ongoing (see interventions/notes) Intervention: Prevent and Manage Nausea and Vomiting Flowsheets (Taken 06/30/2024 0305) Fluid/Electrolyte Management: fluids provided Environmental Support: calm environment promoted * Interdisciplinary - Nell Sinha RN - 06/29/2024 9:20 PM CDT Patient sitting up in bed, alert and oriented x 4. Reviewed plan of care and medications. Denies nausea or pain at this time. Continues on IVF and antibiotics as ordered. * Interdisciplinary - Sherley Dyre RN - 06/29/2024 6:12 PM CDT Patient resting per bed at this time. Has slept off and on most of day. Taking all medications except for Lovenox, Tolerating well. No complaints of pain, nausea, or vomiting this shift. No acute distress noted. All fall and safety precautions remain in place. Will report off to [place] GIRALDO. * Plan of Care - Sherley Dyer RN - 06/29/2024 5:00 PM CDT Problem: Adult Inpatient Plan of Care Goal: Plan of Care Review Outcome: Ongoing (see interventions/notes) Flowsheets (Taken 06/29/20241656) Plan of Care Reviewed With: patient Progress: improving Today's Goal: Patient will have no nausea and vomiting. Outcome Evaluation: Patient has not reported any nausea or vomiting. Does the patient need assistance with discharge and/or transitioning to the next level of care?: Yes, case management already following Goal: Optimal Comfort and Wellbeing Outcome: Ongoing (see interventions/notes) Intervention: Monitor Pain and Promote Comfort Flowsheets (Taken 06/29/2024 08) Pain Management Interventions: care clustered position adjusted quiet environment facilitated relaxation techniques promoted Intervention: Provide Person-Centered Care Flowsheets (Taken 06/29/2024799) Trust Relationship/Rapport: care explained choices provided emotional support provided empathic listening provided questions answered questions encouraged reassurance provided respect patient/family decisions provided safe/supportive environment facilitated nonverbal communication acknowledged thoughts/feelings acknowledged Goal: Readiness for Transition of Care Outcome: Ongoing (see interventions/notes) Problem: Pain Acute Goal: Optimal Pain Control and Function Outcome: Ongoing (see interventions/notes) Intervention: Develop Pain Management Plan Flowsheets (Taken 06/29/2024 08) Pain Management Interventions: care clustered position adjusted quiet environment facilitated relaxation techniques promoted Intervention: Prevent or Manage Pain Flowsheets Taken 06/29/20241656 by SHERLEY Sensory Stimulation Regulation: care clustered lighting decreased quiet environment promoted television on Taken 06/29/2024 08 by SHERLEY Sleep/Rest Enhancement: awakenings minimized consistent schedule promoted natural light exposure provided noise level reduced regular sleep/rest pattern promoted relaxation techniques promoted room darkened Medication Review/Management: medications reviewed Taken 06/28/20242130 by NELL Bowel Elimination Promotion: adequate fluid intake promoted Intervention: Optimize Psychosocial Wellbeing Flowsheets Taken 06/29/20241656 Supportive Measures: active listening utilized decision-making supported positive reinforcement provided problem-solving facilitated relaxation techniques promoted self-responsibility promoted verbalization of feelings encouraged Taken 06/29/2024799 Diversional Activities: smartphone television Problem: Nausea and Vomiting Goal: Nausea and Vomiting Relief Outcome: Ongoing (see interventions/notes) Intervention: Prevent and Manage Nausea and Vomiting Flowsheets (Taken 06/29/2024 1657) Fluid/Electrolyte Management: fluids provided electrolyte supplement adjusted Environmental Support: calm environment promoted caregiver consistency promoted environmental consistency promoted personal routine supported rest periods encouraged * Interdisciplinary - Nell Lazar, [facility] - 06/29/2024 10:46 AM CDT PHARMACY PROGRESS NOTE: Vancomycin DAY # 3 Consulting Physician/Service: Debo Keenan APRN, CNP Admit Date: 06/27/2024 Patient Name: Dayanara Hilton Age: 24 y.o. Sex: female Height: 5' 6 (167.6 cm) Weight: 290 lb 11.2 oz (131.9 kg) Initial Antibiotic Indication: Debo Keenan APRN, CNP Special population: None Current ABX List Includes: Antibiotic - Name Start Date Stop Date Vancomycin 06/27 Cefepime 06/27 Lab Results Component Value Date CREATININE 0.83 06/29/2024 CREATININE 0.75 06/28/2024 CREATININE 1.10 (H) 06/27/2024 CREATININE 0.73 06/12/2024 Estimated Creatinine Clearance: 97.8 mL/min (by C-G formula based on SCr of 0.83 mg/dL). Lab Results Component Value Date WBC 7.39 06/29/2024 WBC 7.02 06/28/2024 WBC 6.20 06/27/2024 WBC 8.40 04/18/2024 PCT 0.16 06/27/2024 NEUT 62.8 04/18/2024 ANC 5.28 04/18/2024 NEUTROABS 4.66 06/29/2024 NEUTROABS 4.84 06/28/2024 NEUTROABS 3.29 06/27/2024 Cultures: Limited to Pertinent Results Date Site / Type Organism Pertinent Sensitivities 06/27 Blood x2 NGd1 Temp (24 hr max): Temp Av ??F (36.7 ??C) Min: 97.8 ??F (36.6 ??C) Max: 98.2 ??F (36.8 ??C) Recent Vancomycin Dosing: Has patient received Vancomycin within the last 7 days? - No Current Admission Daily Drug Monitoring: Loading Dose (Mg) Date Time CrCl Predicted T1/2 2500mg- this was given at OSH 06/27 0500 Date CrCl (ml/min) Dose + Interval Level Date Time Level (mcg/mL) True Trough (Y / N / --) Predicted Trough (mcg/ml) Predicted AUC Predicted % toxicity Predicted T1/2 (H) Dose adjustment (Increase/Decrease/None) 06/28 108.3 Vancomycin 2gm q24hr 06/28 @ 0830 06/28 @ 1530 34 6 N 5.5 416 3 6.87 none 06/29 97 Vancomycin 1250mg q8h 06/29 @ 1100 26 -- 8.9 482 5 3.35 Decrease dose increase freq Monitoring Goals for Vancomycin: AUC 400-600 mg*L/HR Assessment: Patient is on vancomycin and cefepime for sepsis Culture analysis supporting above antibiotics: Awaiting Results Potential antibiotic change needed: Yes - pending results Anticipated duration is TBD WBC is: Stable Temp: afebrile over the last 24 hours SCr is: Stable and is slightly at baseline Daily Scr Ordered: Yes through 06/30 UOP: Not strictly measured but 3x unmeasured output Dosing / Monitoring Plan: Vancomycin started at 2500mg IV x 1 time loading dose.- this was given at [facility] prior to transfer Vancomycin continued at 1250mg IV every 8 hours based on patient age, weight, renal function and population kinetics. Predicted AUC and trough in the chart above. Above dose was selected for the following reasons: Intermediate fit per insight. Peaks >40 on q12h regimen, will decrease dose to 1250mg and increase frequency to q8h to achieve therapeutic AUC, tox<10 and peaks <40. Will plan on checking a vancomycin level 06/29 @ 1100. Pharmacists will continue to monitor. Thank you for this consult. For questions call [facility] [phone] Lizette Snow PharmD, BCPS 06/29/2024, 10:46 AM CDT Addendum: peaks still predicted >40 with q12h dosing. Will keep regimen q8h frequency, but will start 12hr from last dose given level. Will continue to obtain levels frequently as patient is poor fit per Insight and is on higher dose. - Nell Lazar PharmD, BCPS * Interdisciplinary - Sherley Dyer RN - 06/29/2024 10:25 AM CDT Patient sitting up to edge of bed. States feels better. Took all morning medications and tolerated well. Does refuse Lovenox injections, terrified of needles. Denies pain and discomfort. No acute distress noted. All fall and safety precautions in place. Will continue to assess. * Plan of Care - Nell Sinha RN - 06/29/2024 4:45 AM CDT Problem: Adult Inpatient Plan of Care Goal: Plan of Care Review Outcome: Ongoing (see interventions/notes) Flowsheets (Taken 06/29/20242) Plan of Care Reviewed With: patient Progress: progress toward functional goals is gradual Today's Goal: afebrile. No N/V/D Outcome Evaluation: Patient has been afebrile. Reglan given , patient has no nausea, but states it helps with generalized abd discomfort. Reports 3 loose stools. Continues on IVf and IV ABX as ordered. Does the patient need assistance with discharge and/or transitioning to the next level of care?: Yes, case management already following Goal: Optimal Comfort and Wellbeing Outcome: Ongoing (see interventions/notes) Intervention: Monitor Pain and Promote Comfort Flowsheets (Taken 06/28/20242130) Pain Management Interventions: (medications) care clustered relaxation techniques promoted quiet environment facilitated other (see comments) Intervention: Provide Person-Centered Care Flowsheets (Taken 06/28/20242130) Trust Relationship/Rapport: care explained choices provided questions answered safe/supportive environment facilitated Goal: Readiness for Transition of Care Outcome: Ongoing (see interventions/notes) Problem: Pain Acute Goal: Optimal Pain Control and Function Outcome: Ongoing (see interventions/notes) Intervention: Develop Pain Management Plan Flowsheets (Taken 06/28/20242130) Pain Management Interventions: (medications) care clustered relaxation techniques promoted quiet environment facilitated other (see comments) Intervention: Prevent or Manage Pain Flowsheets Taken 06/29/2024441 Sensory Stimulation Regulation: lighting decreased care clustered quiet environment promoted Taken 06/28/20242130 Bowel Elimination Promotion: adequate fluid intake promoted Sleep/Rest Enhancement: awakenings minimized room darkened regular sleep/rest pattern promoted relaxation techniques promoted Medication Review/Management: medications reviewed Intervention: Optimize Psychosocial Wellbeing Flowsheets Taken 06/29/2024441 Supportive Measures: active listening utilized self-care encouraged verbalization of feelings encouraged relaxation techniques promoted Taken 06/28/20242130 Diversional Activities: smartphone television Problem: Nausea and Vomiting Goal: Nausea and Vomiting Relief Outcome: Ongoing (see interventions/notes) Intervention: Prevent and Manage Nausea and Vomiting Flowsheets (Taken 06/29/2024441) Fluid/Electrolyte Management: fluids provided Nausea/Vomiting Interventions: sips of clear liquids given Environmental Support: calm environment promoted caregiver consistency promoted rest periods encouraged distractions minimized environmental consistency promoted * Interdisciplinary - Nell Sinha RN - 06/28/2024 8:10 PM CDT Patient currently in shower. Stated feeling much better this evening. Continues on IVF and ABX and steroid therapy as ordered. Continues to have diarrhea but reported not nearly as much. No vomiting.Continues on telemetry monitoring. Continue frequent rounding. * Georgie - Sherley Dyer RN - 06/28/2024 6:53 PM CDT Patient sitting to side of bed most of day and had visitors throughout the day. Patient is pleasantand cooperative. Took all medications today and tolerated well. No complaints at this time. No acute distress noted. All fall and safety precautions in place. Reported off to [place] GIRALDO. * Interdisciplinary - Nell Lazar [facility] - 06/28/2024 2:42 PM CDT PHARMACY PROGRESS NOTE: Vancomycin DAY # 2 Consulting Physician/Service: Debo Keenan APRN, CNP Admit Date: 06/27/2024 Patient Name: Dayanara Hilton Age: 24 y.o. Sex: female Height: 5' 6 (167.6 cm) Weight: 290 lb 11.2 oz (131.9 kg) Initial Antibiotic Indication: Debo Keenan APRN, CNP Special population: None Current ABX List Includes: Antibiotic - Name Start Date Stop Date Vancomycin 06/27 Cefepime 06/27 Lab Results Component Value Date CREATININE 0.75 06/28/2024 CREATININE 1.10 (H) 06/27/2024 CREATININE 0.73 06/12/2024 CREATININE 0.94 04/18/2024 Estimated Creatinine Clearance: 108.3 mL/min (by C-G formula based on SCr of 0.75 mg/dL). Lab Results Component Value Date WBC 7.02 06/28/2024 WBC 6.20 06/27/2024 WBC 8.40 04/18/2024 PCT 0.16 06/27/2024 NEUT 62.8 04/18/2024 ANC 5.28 04/18/2024 NEUTROABS 4.84 06/28/2024 NEUTROABS 3.29 06/27/2024 Cultures: Limited to Pertinent Results Date Site / Type Organism Pertinent Sensitivities 06/27 Blood x2 NGd1 Temp (24 hr max): Temp Av.1 ??F (37.8 ??C) Min: 100 ??F (37.8 ??C) Max: 100.2 ??F (37.9 ??C) Recent Vancomycin Dosing: Has patient received Vancomycin within the last 7 days? - No Current Admission Daily Drug Monitoring: Loading Dose (Mg) Date Time CrCl Predicted T1/2 2500mg- this was given at OSH 06/27 0500 Date CrCl (ml/min) Dose + Interval Level Date Time Level (mcg/mL) True Trough (Y / N / --) Predicted Trough (mcg/ml) Predicted AUC Predicted % toxicity Predicted T1/2 (H) Dose adjustment (Increase/Decrease/None) 06/28 108.3 Vancomycin 2gm q24hr 06/28 @ 0830 06/28 @ 1530 34 6 N 5.5 416 3 6.87 none Monitoring Goals for Vancomycin: AUC 400-600 mg*L/HR Assessment: Patient is on vancomycin and cefepime for sepsis Culture analysis supporting above antibiotics: Awaiting Results Potential antibiotic change needed: Yes - pending results Anticipated duration is TBD WBC is: Stable Temp: FEBRILE over the last 24 hours SCr is: Stable and is slightly at baseline Daily Scr Ordered: Yes through 06/30 UOP: Not strictly measured but 4x unmeasured output Dosing / Monitoring Plan: Vancomycin started at 2500mg IV x 1 time loading dose.- this was given at [facility] prior to transfer Vancomycin continued at 2000mg IV every 24 hours based on patient age, weight, renal function and population kinetics. Predicted AUC and trough in the chart above. Above dose was selected for the following reasons: q24h dosing has peaks much greater than 40. Scr has returned to baseline. Level drawn as peak after only 1 dose in the system, unable to create welldefined kinetic profile. Will order a second level today to assess clearance. Will plan on checking a vancomycin level (06/28 @ 1600). Pharmacists will continue to monitor. Thank you for this consult. For questions call [facility] [phone] Shaun Alva [facility] 06/28/2024, 2:42 PM CDT Addendum: [facility] RX classifying patient as intermediate fit. Half-life predicting <4hrs. Will increase frequency to q12h. Though peaks are predicted to be above 40mcg/ml, likely closer to 35 as shown with today's peak. Will obtain another level tomorrow to reassess. - Nell Lazar, PharmD, BCPS * Plan of Care - Sherley Dyer RN - 06/28/2024 1:49 PM CDT Problem: Adult Inpatient Plan of Care Goal: Plan of Care Review Outcome: Ongoing (see interventions/notes) Flowsheets (Taken 06/28/2024 1341) Plan of Care Reviewed With: patient Progress: progress toward functional goals is gradual Today's Goal: Patient will be afebrile and no nausea and vomiting. Outcome Evaluation: Patient has been afebrile this shift. Does the patient need assistance with discharge and/or transitioning to the next level of care?: Yes, case management already following Goal: Optimal Comfort and Wellbeing Outcome: Ongoing (see interventions/notes) Intervention: Monitor Pain and Promote Comfort Flowsheets (Taken 06/28/2024 0800) Pain Management Interventions: care clustered pillow support provided position adjusted quiet environment facilitated relaxation techniques promoted Intervention: Provide Person-Centered Care Flowsheets (Taken 06/28/2024 0800) Trust Relationship/Rapport: care explained choices provided emotional support provided empathic listening provided questions answered questions encouraged reassurance provided respect patient/family decisions provided safe/supportive environment facilitated nonverbal communication acknowledged thoughts/feelings acknowledged Goal: Readiness for Transition of Care Outcome: Ongoing (see interventions/notes) Problem: Pain Acute Goal: Optimal Pain Control and Function Outcome: Ongoing (see interventions/notes) Intervention: Develop Pain Management Plan Flowsheets (Taken 06/28/2024 0800) Pain Management Interventions: care clustered pillow support provided position adjusted quiet environment facilitated relaxation techniques promoted Intervention: Prevent or Manage Pain Flowsheets Taken 06/28/2024 1344 Sensory Stimulation Regulation: care clustered lighting decreased quiet environment promoted television on Taken 06/28/2024 0800 Bowel Elimination Promotion: adequate fluid intake promoted Sleep/Rest Enhancement: awakenings minimized consistent schedule promoted natural light exposure provided noise level reduced regular sleep/rest pattern promoted relaxation techniques promoted room darkened Medication Review/Management: medications reviewed Intervention: Optimize Psychosocial Wellbeing Flowsheets Taken 06/28/2024 1344 Supportive Measures: active listening utilized decision-making supported positive reinforcement provided problem-solving facilitated relaxation techniques promoted self-care encouraged self-responsibility promoted verbalization of feelings encouraged Taken 06/28/2024 0800 Diversional Activities: smartphone television Problem: Nausea and Vomiting Goal: Nausea and Vomiting Relief Outcome: Ongoing (see interventions/notes) Intervention: Prevent and Manage Nausea and Vomiting Flowsheets (Taken 06/28/2024 1344) Fluid/Electrolyte Management: fluids provided Nausea/Vomiting Interventions: sips of clear liquids given slow deep breathing encouraged Environmental Support: calm environment promoted caregiver consistency promoted environmental consistency promoted rest periods encouraged * Interdisciplinary - Sherley Dyer RN - 06/28/2024 11:28 AM CDT Patient resting per bed. Awake, alert, and pleasant. Denies pain and discomfort. IVF's continue infusing without difficulty. Took morning medications and tolerated well. All fall and safety precautions in place. Will continue to assess. * Plan of Care - Nell Sinha RN - 06/28/2024 2:46 AM CDT Problem: Adult Inpatient Plan of Care Goal: Plan of Care Review Outcome: Ongoing (see interventions/notes) Flowsheets (Taken 06/28/2024 0244) Plan of Care Reviewed With: patient Progress: progress toward functional goals is gradual Today's Goal: afebrile Outcome Evaluation: temp 100 last evening. Zofran given for nausea. Continues on IVF and IV ABX. Infectious disease consult ordered Does the patient need assistance with discharge and/or transitioning to the next level of care?: Yes, case management already following Goal: Optimal Comfort and Wellbeing Outcome: Ongoing (see interventions/notes) Intervention: Monitor Pain and Promote Comfort Flowsheets (Taken 06/27/20242124) Pain Management Interventions: care clustered quiet environment facilitated relaxation techniques promoted pain management plan reviewed with patient/caregiver Intervention: Provide Person-Centered Care Flowsheets (Taken 06/27/20242124) Trust Relationship/Rapport: therapeutic presence provided care explained questions answered choices provided safe/supportive environment facilitated Goal: Readiness for Transition of Care Outcome: Ongoing (see interventions/notes) Problem: Pain Acute Goal: Optimal Pain Control and Function Outcome: Ongoing (see interventions/notes) Intervention: Develop Pain Management Plan Flowsheets (Taken 06/27/20242124) Pain Management Interventions: care clustered quiet environment facilitated relaxation techniques promoted pain management plan reviewed with patient/caregiver Intervention: Prevent or Manage Pain Flowsheets Taken 06/28/2024 0244 Sensory Stimulation Regulation: care clustered quiet environment promoted Taken 06/27/20242124 Bowel Elimination Promotion: adequate fluid intake promoted Sleep/Rest Enhancement: awakenings minimized consistent schedule promoted regular sleep/rest pattern promoted relaxation techniques promoted room darkened noise level reduced Medication Review/Management: medications reviewed Intervention: Optimize Psychosocial Wellbeing Flowsheets Taken 06/28/20244 Supportive Measures: active listening utilized Spiritual Activities Assistance: affirmation provided Taken 06/27/20242124 Diversional Activities: television smartphone Problem: Nausea and Vomiting Goal: Nausea and Vomiting Relief Outcome: Ongoing (see interventions/notes) Intervention: Prevent and Manage Nausea and Vomiting Flowsheets Taken 06/28/20244 Fluid/Electrolyte Management: fluids provided Environmental Support: calm environment promoted caregiver consistency promoted rest periods encouraged environmental consistency promoted Taken 06/27/20242124 Nausea/Vomiting Interventions: sips of clear liquids given * Interdisciplinary - Nell Sinha RN - 06/27/2024 8:00 PM CDT Patient resting in bed, alert and oriented x 4. Reviewed plan of care and medications. Continues onIVF and IV ABX as ordered. Fall precautions maintained. Call light and personal items in reach. * Plan of Care - Kaycee Galarza RN - 06/27/2024 3:50 PM CDT Problem: Adult Inpatient Plan of Care Goal: Plan of Care Review Outcome: Ongoing (see interventions/notes) Flowsheets (Taken 06/27/2024 1548) Plan of Care Reviewed With: patient Progress: improving Today's Goal: K+ WNL Outcome Evaluation: K+ 3.1 Pt given 20meq IVPB X2. Does the patient need assistance with discharge and/or transitioning to the next level of care?: Yes, case management already following Goal: Optimal Comfort and Wellbeing Outcome: Ongoing (see interventions/notes) Intervention: Monitor Pain and Promote Comfort Flowsheets (Taken 06/27/2024 1548) Pain Management Interventions: care clustered pain management plan reviewed with patient/caregiver Intervention: Provide Person-Centered Care Flowsheets (Taken 06/27/2024 1006) Trust Relationship/Rapport: care explained questions answered Goal: Readiness for Transition of Care Outcome: Ongoing (see interventions/notes) Intervention: Mutually Develop Transition Plan Flowsheets (Taken 06/27/2024 1548) Readmission Within the Last 30 Days: no previous admission in last 30 days Problem: Pain Acute Goal: Optimal Pain Control and Function Outcome: Ongoing (see interventions/notes) Intervention: Develop Pain Management Plan Flowsheets (Taken 06/27/2024 1548) Pain Management Interventions: care clustered pain management plan reviewed with patient/caregiver Intervention: Prevent or Manage Pain Flowsheets Taken 06/27/2024 1548 Bowel Elimination Promotion: adequate fluid intake promoted Taken 06/27/2024 1006 Medication Review/Management: medications reviewed Intervention: Optimize Psychosocial Wellbeing Flowsheets (Taken 06/27/2024 1006) Diversional Activities: smartphone television * Interdisciplinary - Dunia Lorenzo [facility] - 06/27/2024 1:17 PM CDT PHARMACY PROGRESS NOTE: Vancomycin DAY # 1 Consulting Physician/Service: Debo Keenan APRN, [employer] Admit Date: 06/27/2024 Patient Name: Dayanara Hilton Age: 24 y.o. Sex: female Height: 5' 6 (167.6 cm) Weight: 290 lb 11.2 oz (131.9 kg) Initial Antibiotic Indication: Debo Keenan, HOSE [employer]ENDER, [employer] Special population: None Current ABX List Includes: Antibiotic - Name Start Date Stop Date Vancomycin 06/27 Cefepime 06/27 Lab Results Component Value Date CREATININE 1.10 (H) 06/27/2024 CREATININE 0.73 06/12/2024 CREATININE 0.94 04/18/2024 Estimated Creatinine Clearance: 73.8 mL/min (A) (by C-G formula based on SCr of 1.1 mg/dL (H)). Lab Results Component Value Date WBC 6.20 06/27/2024 WBC 8.40 04/18/2024 PCT 0.16 06/27/2024 NEUT 62.8 04/18/2024 ANC 5.28 04/18/2024 NEUTROABS 3.29 06/27/2024 Cultures: Limited to Pertinent Results Date Site / Type Organism Pertinent Sensitivities 06/27 Blood x2 Temp (24 hr max): Temp Av.9 ??F (37.2 ??C) Min: 98.9 ??F (37.2 ??C) Max: 98.9 ??F (37.2 ??C) Recent Vancomycin Dosing: Has patient received Vancomycin within the last 7 days? - No Current Admission Daily Drug Monitoring: Loading Dose (Mg) Date Time CrCl Predicted T1/2 2500mg- this was given at OSH 06/27 0500 Date CrCl (ml/min) Dose + Interval Level Date Time Level (mcg/mL) True Trough (Y / N / --) Predicted Trough (mcg/ml) Predicted AUC Predicted % toxicity Predicted T1/2 (H) Dose adjustment (Increase/Decrease/None) 06/28 73.8 Vancomycin 2gm q24hr 06/28 @ 0930 11.6 484 7 12 Monitoring Goals for Vancomycin: AUC 400-600 mg*L/HR Assessment: Patient is on vancomycin and cefepime for sepsis Culture analysis supporting above antibiotics: Awaiting Results Potential antibiotic change needed: Yes - pending results Anticipated duration is TBD WBC is: Stable Temp: afebrile over the last 24 hours SCr is: Stable and is slightly above baseline Daily Scr Ordered: Yes through 06/30 UOP: not charted Dosing / Monitoring Plan: Vancomycin started at 2500mg IV x 1 time loading dose.- this was given at [facility] prior to transfer Vancomycin continued at 2000mg IV every 24 hours based on patient age, weight, renal function and population kinetics. Predicted AUC and trough in the chart above. Above dose was selected for the following reasons: per [facility] Rx- used q24hr dosing for less toxicity Will plan on checking a vancomycin level yes (06/28 @ 0930). Level is ordered Pharmacists will continue to monitor. Thank you for this consult. For questions call [facility] [phone] DUNIA LORENZO RPH 06/27/2024, 1:18 PM CDT * Interdisciplinary - Kaycee Galarza RN - 06/27/2024 10:33 AM CDT Initial Skin Assessment Patient assessed with 2nd RN Debo Wounds noted: Melanoma area to right foot and lower leg. PRESSURE INJURY AND MOISTURE MANAGEMENT RECOMMENDATIONS: Moisture [...] No Specialty Bed Indicated Wound care: N/A KAYCEE R JESSICA, RN * Interdisciplinary - Kaycee Galarza RN - 06/27/2024 10:30 AM CDT Admitted pt as direct admit from [facility] N/V/D. A/O. Resp unlabored. RA. SL patent. Has PAC, not accessed. See flow sheet for complete assessment. Up at [facility]. Orders pending. Rounding continues. documented in this encounter Plan of Treatment Upcoming Encounters Date Type Department Care Team (Late st Contact Info) Description 11/15/2024 1:00 PM CARDIOLOGY FELLOW Lab [facility] [address] [place] [address] Markus Finley MD [address] [place] [address] 11/15/2024 2:00 PM CARDIOLOGY FELLOW Appointment [facility] [address] [place] [address] Markus Finley MD [address] [place] [address] Discharge Disposition: Discharged to home or Selfcare Scheduled Orders Name Type Priority Associated Diagnoses Orde r Schedule Pulse Oximetry, Spot PFT Routine WITH VITALS until discontinued starting 06/27/2024 documented as of this encounter Procedures Procedure Name Priority Date/Time Associated Diagnosis Comments VANCOMYCIN Timed 06/30/2024 8:11 AM CDT MANUAL DIFFERENTIAL Routine 06/30/2024 5 :35 AM CDT CBC WITH AUTO DIFFERENTIAL Routine 06/30/2024 5:35 AM CDT MAGNESIUM (MG) Routine 06/30/2024 5:35 AM CDT COMPLETE BLOOD COUNT (CBC) WITH DIFF Routine 06/30/2024 5:35 AM CDT BASIC METABOLIC PANEL W/ CALCIUM TOTAL Routine 06/30/2024 5:35 AM CDT RHYTHM STRIP 06/30/2024 12:00 AM CDT RHYTHM STRIP 06/30/2024 12:00 AM CDT VANCOMYCIN Timed 06/29/2024 12:04 PM CDT MANUAL DIFFERENTIAL Routine 06/29/2024 5 :48 AM CDT CBC WITH AUTO DIFFERENTIAL Routine 06/29/2024 5:48 AM CDT PHOSPHORUS (PO4) Routine 06/29/2024 5:48 AM CDT MAGNESIUM (MG) Routine 06/29/2024 5:48 AM CDT LACTIC ACID (LACTATE) Routine 06/29/2024 5:48 AM CDT COMPLETE BLOOD COUNT (CBC) WITH DIFF Routine 06/29/2024 5:48 AM CDT BASIC METABOLIC PANEL W/ CALCIUM TOTAL Routine 06/29/2024 5:48 AM CDT RHYTHM STRIP 06/29/2024 12:00 AM CDT RHYTHM STRIP 06/29/2024 12:00 AM CDT RHYTHM STRIP 06/29/2024 12:00 AM CDT URINALYSIS REFLEX IF INDICATED BY ABNORMAL RESULTS Routine 06/28/2024 6:21 PM CDT CYTOMEGALOVIRUS DNA QUANT PCR VIRAL LOAD Routine 06/28/2024 3:30 PM CDT VANCOMYCIN Timed 06/28/2024 3:30 PM CDT STANLEY COLLAZO VIRUS (EBV) COMPREHENSIVE Routine 06/28/2024 3:30 PM CDT VANCOMYCIN Timed 06/28/2024 8:32 AM CDT XR REFERENCE IMAGES FOR IMAGE IMPORT Routine 06/28/2024 7:[address] REFERENCE IMAGES FOR IMAGE IMPORT Routine 06/28/2024 7:07 AM CDT MANUAL DIFFERENTIAL Routine 06/28/2024 4 :37 AM CDT CBC WITH AUTO DIFFERENTIAL Routine 06/28/2024 4:37 AM CDT MAGNESIUM (MG) Routine 06/28/2024 4:37 AM CDT COMPLETE BLOOD COUNT (CBC) WITH DIFF Routine 06/28/2024 4:37 AM CDT BASIC METABOLIC PANEL W/ CALCIUM TOTAL Routine 06/28/2024 4:37 AM CDT RHYTHM STRIP 06/28/2024 12:00 AM CDT RHYTHM STRIP 06/28/2024 12:00 AM CDT RHYTHM STRIP 06/28/2024 12:00 AM CDT RHYTHM STRIP 06/28/2024 12:00 AM CDT XR CHEST SINGLE VIEW PORTABLE Routine 06/27/2024 12:33 PM CDT ABO/RH (D) RECHECK Routine 06/27/2024 11 :38 AM CDT ABO/RH (D) RECHECK Routine 06/27/2024 11 :38 AM CDT CULTURE, BLOOD STAT 06/27/2024 11:38 AM CDT CULTURE, BLOOD STAT 06/27/2024 11:26 AM CDT PROCALCITONIN STAT 06/27/2024 11:20 AM CDT MANUAL DIFFERENTIAL STAT 06/27/2024 1 1:20 AM CDT CBC WITH AUTO DIFFERENTIAL STAT 06/27/2024 11:20 AM CDT TYPE & SCREEN (CROSSMATCH CONVERTIBLE) STAT 06/27/2024 11:20 AM CDT PROTIME (PT) (PROTHROMBIN TIME) STAT 06/27/2024 11:20 AM CDT LIPASE STAT 06/27/2024 11:20 AM CDT LACTIC ACID (LACTATE) STAT 06/27/2024 11:20 AM CDT CMP (COMPREHENSIVE METABOLIC PANEL) STAT 06/27/2024 11:20 AM CDT COMPLETE BLOOD COUNT (CBC) WITH DIFF STAT 06/27/2024 11:20 AM CDT AMYLASE STAT 06/27/2024 11:20 AM CDT C. DIFFICILE BY PCR 06/27/2024 1 2:00 AM CDT RHYTHM STRIP 06/27/2024 12:00 AM CDT RHYTHM STRIP 06/27/2024 12:[address] - ABDOMEN/PELVIS 06/27/2024 1 2:00 AM CDT URINALYSIS (UA) RANDOM 12:00 AM CDT LACTIC ACID (LACTATE) 06/27/2024 12:00 AM CDT documented in this encounter Results * (ABNORMAL) Vancomycin Level (06/30/2024 8:11 AM CDT) Only the most recent of4 resultswithin the time period is included. VANCOMYCIN RESULT 16(L) 20 - 40 mcg/mL 06/30/2024 8:49 AM CDT [facility] Blood Venipuncture / Unknown 06/30/2024 8:11 AM CDT 06/30/2024 8:25 AM CDT Narrative [facility] - 06/30/2024 8:49 AM CDT CALL PHARMACY FOR THERAPEUTIC RANGE. Violetta Mcdonald MD CHEMISTRY ORDERABLES Fin al Result [facility] [place] [address] * (ABNORMAL) Manual Differential (06/30/2024 5:35 AM CDT) Only the most recent of4 resultswithin the time period is included. BANDS % 12.0(H) 0.0 - 10.0 % 06/30/2024 6:15 AM CDT [facility] NEUTROPHILS % 59.0 47.0 - 73.0 % 06/30/2024 6:15 AM CDT [facility] LYMPHOCYTES % 20.0 18.0 - 42.0 % 06/30/2024 6:15 AM CDT [facility] MONOCYTES % 9.0 4.0 - 12.0 % 06/30/2024 6:15 AM CDT [facility] NEUTROPHILS ABSOLUTE 7.15 1.60 - 7.70 10(3)/mcL 06/30/2024 6:15 AM CDT [facility] LYMPHOCYTES ABSOLUTE 2.01 1.30 - 3.20 10(3)/mcL 06/30/2024 6:15 AM CDT [facility] MONOCYTES ABSOLUTE 0.91 0.20 - 1.00 10(3)/mcL 06/30/2024 6:15 AM CDT [facility] WBC MORPH STATUS Normal 06/30/20 6:15 AM CDT [facility] RBC MORPH STATUS Normal 06/30/20 6:15 AM CDT [facility] PLATELET STATUS Normal 6:15 AM CDT [facility] Blood Venipuncture / Unknown 06/30/2024 5:35 AM CDT 06/30/2024 5:39 AM CDT us Brayan Kang MD HEMATOLOGY ORDERABLES Final R esult [facility] [place] [address] * (ABNORMAL) CBC with Auto Differential (06/30/2024 5:35 AM CDT) Only the most recent of4 resultswithin the time period is included. WBC 10.07 4.00 - 12.00 10(3)/mcL 06/30/2024 6:15 AM CDT [facility] RBC 5.49(H) 3.80 - 5.30 10(6)/mcL 06/30/2024 6:15 AM CDT [facility] HEMOGLOBIN (HGB) 16.2(H) 12.0 - 15.8 g/dL 06/30/2024 6:15 AM CDT [facility] HEMATOCRIT (HCT) 47.1(H) 36.0 - 47.0 % 06/30/2024 6:15 AM CDT [facility] MCV 85.8 82.0 - 96.0 fL 06/30/2024 6:15 AM CDT [facility] MCH 29.5 26.0 - 34.0 pg 06/30/2024 6:15 AM CDT [facility] MCHC 34.4 31.0 - 36.0 g/dL 06/30/2024 6:15 AM CDT [facility] PLATELET COUNT 307 140 - 440 10(3)/mcL 06/30/2024 6:15 AM CDT [facility] RDW 12.9 11.8 - 15.5 % 06/30/2024 6:15 AM CDT [facility] MPV 9.5(L) 9.7 - 12.4 fL 06/30/2024 6:15 AM CDT [facility] NRBC PER 100 WBC 0 06/30/2024 6:15 AM CDT [facility] RESULTS ARE CONSISTENT WITH PERIPHERAL SMEAR REVIEW Yes 06/30/2024 6:15 AM CDT [facility] Blood Venipuncture / Unknown 06/30/2024 5:35 AM CDT 06/30/2024 5:39 AM CDT us Brayan Kang MD HEMATOLOGY ORDERABLES Final R esult [facility] [place] [address] * (ABNORMAL) BMP with Ca, Total (06/30/2024 5:35 AM CDT) Only the most recent of3 resultswithin the time period is included. SODIUM 137 136 - 145 mmol/L 06/30/2024 6:05 AM CDT [facility] POTASSIUM 3.6 3.5 - 5.1 mmol/L 06/30/2024 6:05 AM CDT [facility] CHLORIDE 110(H) 98 - 107 mmol/L 06/30/2024 6:05 AM CDT [facility] CO2, VENOUS 15(L) 22 - 30 mmol/L 06/30/2024 6:05 AM CDT [facility] ANION GAP 15.6 <18.0 mmol/L 06/30/2024 6:05 AM CDT [facility] GLUCOSE 82 70 - 99 mg/dL 06/30/2024 6:05 AM CDT [facility] BUN 7 5 - 18 mg/dL 06/30/2024 6:05 AM CDT [facility] CREATININE, BLOOD 0.87 0.60 - 1.00 mg/dL 06/30/2024 6:05 AM CDT [facility] BUN/CREATININE RATIO 8(L) 12 - 20 ratio 06/30/2024 6:05 AM T [facility] CALCIUM 9.6 8.7 - 10.5 mg/dL 06/30/2024 6:05 AM CDT [facility] GFR, ESTIMATED >60 >=60 06/30/2024 6:05 AM CDT [facility] Comment: Creatinine Clearance is the preferred criteria for selecting drug dose adjustments in renally impaired patients. ??The GFR is provided as additional pertinent clinical information. GFR is reported in mL/min/1.73 sq m. Calculation based on the Chronic Kidney Disease Epidemiology Collaboration (CKD- EPI) equation refit without adjustment for race. GFR, EST. >60 >=60 024 6:05 AM CDT [facility] GFR, EST. NONAFRICAN >60 >=60 06/30/2024 6:05 AM CDT [facility] Blood Venipuncture / Unknown 06/30/2024 5:35 AM CDT 06/30/2024 5:40 AM CDT Brayan Kang MD CHEMISTRY ORDERABLES Final Re sult Performing Organization Address City/[facility]/ZIP Co de Phone Number [facility] [place] [address] * Magnesium (Mg) (06/30/2024 5:35 AM CDT) Only the most recent of3 resultswithin the time period is included. MAGNESIUM 2.3 1.6 - 2.6 mg/dL 06/30/2024 6:05 AM CDT [facility] Blood Venipuncture / Unknown 06/30/2024 5:35 AM CDT 06/30/2024 5:40 AM CDT us Debo Keenan APRN, CNP CHEMISTRY ORDERABLES Final Result [facility] [place] [address] * RHYTHM STRIP (06/30/2024 12:00 AM CDT) Only the most recent of11 resultswithin the time period is included. 06/30/2024 us Provider Scan IMG ECG ORDERABLES Final Result Performing Organization Address [facility] Co de Phone Number RESULTING AGENCY * Lactic Acid (Lactate) (06/29/2024 5:48 AM CDT) Only the most recent of3 resultswithin the time period is included. LACTIC ACID 0.9 0.7 - 2.0 mmol/L 06/29/2024 6:17 AM CDT [facility] Comment: Specimen is hemolyzed. In vitro hemolysis could affect results. Clinical correlation advised. Blood Venipuncture / Unknown 06/29/2024 5:48 AM CDT 06/29/2024 5:56 AM CDT Brayan Kang MD CHEMISTRY ORDERABLES Final Re sult Performing Organization Address [facility] [facility] de Phone Number [facility] [place] [address] * PHOSPHORUS (PO4) (06/29/2024 5:48 AM CDT) [facility] PHOSPHORUS 3.1 2.5 - 4.5 mg/dL 06/29/2024 6:23 AM CDT [facility] Blood Venipuncture / Unknown 06/29/2024 5:48 AM CDT 06/29/2024 5:56 AM CDT Brayan Kang MD CHEMISTRY ORDERABLES Final Re sult Performing Organization Address [facility] Co de Phone Number [facility] [place] [address] * (ABNORMAL) URINALYSIS REFLEX IF INDICATED BY ABNORMAL RESULTS (06/28/2024 6:21 PM CDT) Pathologist [facility] SPECIFIC GRAVITY 1.015 1.003 - 1.030 06/28/2024 6:46 PM CDT [facility] URINE PH 6.0 5.0 - 9.0 06/28/2024 6:46 PM CDT [facility] WBC ESTERASE 25 /ul(A) Negative 06/28/2024 6:46 PM CDT [facility] NITRITE Negative Negative 06/28/2024 6:46 PM CDT [facility] PROTEIN, RANDOM URINE 30 mg/dL(A) Negative 06/28/2024 6:46 PM CDT [facility] URINE GLUCOSE, QUAL Negative Negative 06/28/2024 6:46 PM CDT [facility] URINE KETONES 150 mg/dL(A) Negative 6:46 PM CDT [facility] UROBILINOGEN Normal Normal mg/dL 06/28/2024 6:46 PM CDT [facility] URINE BLOOD 250 /uL(A) Negative chidi/ul 06/28/2024 6:46 PM CDT [facility] URINALYSIS COLOR Dark Yellow 024 6:46 PM CDT [facility] URINALYSIS CLARITY Clear 06/28/2024 6:46 PM CDT [facility] WBC (Urine) 0-5 Negative, 0-5 /hpf 06/28/2024 6:46 PM CDT [facility] URINE RBC'S 51-150(A) Negative, 0-2 /hpf 06/28/2024 6:46 PM CDT [facility] EPITHELIAL CELLS Moderate amount /lpf 06/28/2024 6:46 PM CDT [facility] BACTERIA, URINE Few(A) Negative /hpf 06/28/2024 6:46 PM CDT [facility] Urine URINE SPECIMEN COLLECTION, CLEAN CATCH / Unknown Non-Phlebotomy Collection / Unknown 06/28/2024 6:21 PM CDT 06/28/2024 6:27 PM CDT us Violetta Mcdonald MD URINE ORDERABLES Final R esult [facility] [place] [address] * CMV DNA Quant PCR (06/28/2024 3:30 PM CDT) Pathologist [facility] CMV DNA QUANT PCR NON DETECTED NON DETECTED 06/29/2024 12:48 PM CDT [facility] CMV DNA QT LOG 06/29/2024 12:48 PM CDT [facility] Comment: LOG 10 not applicable Blood Venipuncture / Unknown 06/28/2024 3:30 PM CDT 06/28/2024 3:33 PM CDT Narrative [facility] - 06/29/2024 12:48 PM CDT Supplemental testing methods may be needed when CMV viral loads are negative in patients highly suspected to have clinically significant CMV viremia This test was performed using JUAN F 5800 Real Time PCR. Violetta Mcdonald MD IMMUNOLOGY ORDERABLES [facility] Result [facility] [address] [place] [address], * Stanley Collazo Virus (EBV) Comprehensive (06/28/2024 3:30 PM CDT) [facility] EBV VCA IGG AB (STANLEY-COLLAZO VIRUS-VIRAL CAPSID ANTIGEN) 3.4 AI 06/29/2024 5:17 AM CDT [facility] Comment: <= 0.8 Negative. ??No detectable IgG antibody to VCA. 0.9 - 1.0 Equivocal >=1.1 Positive Antibody testing was performed by multiplex flow immunoassay on the [employer]lex platform. EBV NUCLEAR AG >8.0 AI 06/29/2024 5:17 AM CDT [facility] Comment: <= 0.8 Negative. ??No detectable IgG antibody to NA. 0.9 - 1.0 Equivocal >=1.1 Positive Antibody testing was performed by multiplex flow immunoassay on the [employer]Plex platform. EBV EARLY AG(EA, DIF) <0.2 AI 06/29/2024 5:17 AM CDT [facility] Comment: <= 0.8 Negative. ??No detectable IgG antibody to EA. 0.9 - 1.0 Equivocal >=1.1 Positive Antibody testing was performed by multiplex flow immunoassay on the [employer]lex platform. EBV VCA IGM AB (STANLEY-COLLAZO VIRUS-VIRAL CAPSID ANTIGEN) 0.2 <1.1 AI 06/29/2024 5:17 AM CDT [facility] Comment: <= 0.8 Negative. ??No detectable IgM antibody to VCA. 0.9 - 1.0 Equivocal >=1.1 Positive Antibody testing was performed by multiplex flow immunoassay on the [employer]Plex platform. EBV HETEROPHILE <0.2 <1.1 AI 5:17 AM CDT [facility] Comment: <= 0.8 Negative. ??No detectable Heterophile antibody. 0.9 - 1.0 Equivocal >=1.1 Positive Antibody testing was performed by multiplex flow immunoassay on the [employer]Plex platform. 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 Blood Venipuncture / Unknown 06/28/2024 3:30 PM CDT 06/28/2024 3:33 PM CDT us Violetta Mcdonald MD IMMUNOLOGY ORDERABLES Fi nal Result [facility] [address] [place] [address], [place] * XR REFERENCE IMAGES FOR IMAGE IMPORT (06/28/2024 7:08 AM CDT) us Not On File Provider IMG DIAGNOSTIC ORDERABLES F inal Result * CT REFERENCE IMAGES FOR IMAGE IMPORT (06/28/2024 7:07 AM CDT) us Not On File Provider IMG CT ORDERABLES Final Res ult * XR CHEST SINGLE VIEW PORTABLE (06/27/2024 12:33 PM CDT) Anatomical Region Laterality Modality Chest N/A Computed Radiogr aphy 06/27/2024 1:07 PM CDT Impressions 06/27/2024 1:09 PM CDT IMPRESSION: No acute pulmonary process. Narrative 06/27/2024 1:09 PM CDT EXAM DESCRIPTION: XR CHEST SINGLE VIEW PORTABLE REASON FOR STUDY: fever, nausea, vomiting, ?? TECHNIQUE: 1 ??radiographic view(s) of the chest. COMPARISON: No prior studies are available for comparison at time of this dictation. FINDINGS: LUNGS: ??The lungs are hypoinflated with resultant bronchovascular crowding and bibasilar atelectasis. ??No focal consolidation, pleural effusion or pneumothorax. ?? HEART/MEDIASTINUM: ??Cardiac silhouette normal in size. Mediastinal and hilar contours appear normal. LINES/TUBES: ??Right internal jugular approach central venous catheter with tip in the superior vena cava. BONES: ??No acute osseous abnormality. THIS IS AN ELECTRONICALLY VERIFIED FINAL REPORT 06/27/2024 1:07 PM - Electronically signed by ??Filipe Erazo M.D. MM: MM D: ??06/27/2024 1:07 PM T: ??06/27/2024 1:07 PM Report ID: [id number] Reading Location: ??[id number] Procedure Note Filipe Erazo MD - 06/27/2024 EXAM DESCRIPTION: XR CHEST SINGLE VIEW PORTABLE REASON FOR STUDY: fever, nausea, vomiting, TECHNIQUE: 1 radiographic view(s) of the chest. COMPARISON: No prior studies are available for comparison at time of this dictation. FINDINGS: LUNGS: The lungs are hypoinflated with resultant bronchovascular crowding and bibasilar atelectasis. No focal consolidation, pleural effusion or pneumothorax. HEART/MEDIASTINUM: Cardiac silhouette normal in size. Mediastinal and hilar contours appear normal. LINES/TUBES: Right internal jugular approach central venous catheter with tip in the superior vena cava. BONES: No acute osseous abnormality. THIS IS AN ELECTRONICALLY VERIFIED FINAL REPORT 06/27/2024 1:07 PM - Electronically signed by Filipe Erazo M.D. MM: MM Report ID: [id number] Reading Location: [id number] IMPRESSION: No acute pulmonary process. Debo Keenan APRN, CNP IMG DIAGNOSTIC ORDERA BLES Final Result * ABO/RH (D) RECHECK (06/27/2024 11:38 AM CDT) Only the most recent of2 resultswithin the time period is included. ABO TYPING O 06/27/2024 1:16 PM CDT [facility] RH Positive 06/27/2024 1:16 PM CDT [facility] Blood Venipuncture / Unknown 06/27/2024 11:38 AM CDT 06/27/2024 1:13 PM CDT Romelia Horn MD PhD BLOOD BANK ORDERABLES Final Result [facility] [place] [address] * Culture, Blood (06/27/2024 11:38 AM CDT) Only the most recent of2 resultswithin the time period is included. CULTURE RESULTS NO GROWTH WITHIN 5 DAYS, FINAL RESULT 07/02/2024 12:00 PM CDT [facility] Culture BLOOD SPECIMEN / Unknown Venipuncture / Unknown 06/27/2024 11:38 AM CDT 06/27/2024 11:42 AM CDT Narrative [facility] - 07/02/2024 12:00 PM CDT Only received an anaerobic bottle for this culture set (no aerobic bottle). Due to the current Bactec bottle shortage, this culture will still be processed. Brayan Kang MD MICROBIOLOGY - GENERAL ORDERA BLES Final Result [facility] [address] [place] [address], [place] * PT/INR Routine (06/27/2024 11:20 AM CDT) PROTIME-PATIENT 14.1 11.6 - 14.8 sec 06/27/2024 11:46 AM CDT [facility] INR 1.1 0.9 - 1.2 06/27/2024 11:46 AM CDT [facility] Comment: Therapeutic Ranges INR = 2.0-3.0: Venous thromb, atrial fib, pul embolism, tissue heart valve, ami. INR = 2.5-3.5: Mechanical heart valve Critical value for INR is >/= 4.5 Blood BLOOD SPECIMEN / Unknown Venipuncture / Unknown 06/27/2024 11:20 AM CDT 06/27/2024 11:26 AM CDT Brayan Kang MD HEMATOLOGY ORDERABLES Final R esult Performing Organization Address City/[facility]/ZIP Co de Phone Number [facility] [place] [address] * TYPE & SCREEN (CROSSMATCH CONVERTIBLE) (06/27/2024 11:20 AM CDT) Pathologist [facility] ABO TYPING O 06/27/2024 12:47 PM CDT [facility] RH Positive 06/27/2024 12:47 PM CDT [facility] ABSC Negative 06/27/2024 12:47 PM CDT [facility] Blood Venipuncture / Unknown 06/27/2024 11:20 AM CDT 06/27/2024 11:26 AM CDT Brayan Kang MD BLOOD BANK ORDERABLES Edited Result - Final [facility] [place] [address] * Lipase (06/27/2024 11:20 AM CDT) Pathologist [facility] LIPASE 36 8 - 78 U/L 06/27/2024 11:52 AM CDT [facility] Blood Venipuncture / Unknown 06/27/2024 11:20 AM CDT 06/27/2024 11:26 AM CDT Brayan Kang MD CHEMISTRY ORDERABLES Final Re sult Performing Organization Address City/[facility]/ZIP Co de Phone Number [facility] [place] [address] * (ABNORMAL) Amylase (06/27/2024 11:20 AM CDT) AMYLASE 21(L) 25 - 125 U/L 06/27/2024 11:52 AM CDT [facility] Blood Venipuncture / Unknown 06/27/2024 11:20 AM CDT 06/27/2024 11:26 AM CDT Brayan Kang MD CHEMISTRY ORDERABLES Final Re sult Performing Organization Address City/[facility]/ZIP Co de Phone Number [facility] [place] [address] * Procalcitonin (06/27/2024 11:20 AM CDT) PROCALCITONIN 0.16 <=0.25 ng/mL 06/27/2024 12:11 PM CDT [facility] Blood Venipuncture / Unknown 06/27/2024 11:20 AM CDT 06/27/2024 11:26 AM CDT Brayan Kang MD IMMUNOLOGY ORDERABLES Final R esult Performing Organization Address City/[facility]/ZIP Co de Phone Number [facility] [place] [address] * (ABNORMAL) CMP (Comprehensive Metabolic Panel) (06/27/2024 11:20 AM CDT) SODIUM 136 136 - 145 mmol/L 06/27/2024 11:52 AM T [facility] POTASSIUM 3.1(L) 3.5 - 5.1 mmol/L 06/27/2024 11:52 AM [facility] CHLORIDE 105 98 - 107 mmol/L 06/27/2024 11:52 AM [facility] CO2, VENOUS 19(L) 22 - 30 mmol/L 06/27/2024 11:52 AM [facility] ANION GAP 15.1 <18.0 mmol/L 06/27/2024 11:52 AM [facility] GLUCOSE 112(H) 70 - 99 mg/dL 06/27/2024 11:52 AM [facility] BUN 10 5 - 18 mg/dL 06/27/2024 11:52 AM [facility] CREATININE, BLOOD 1.10(H) 0.60 - 1.00 mg/dL 06/27/2024 11:52 AM [facility] BUN/CREATININE RATIO 9(L) 12 - 20 ratio 06/27/2024 11:52 AM [facility] TOTAL PROTEIN 6.0(L) 6.3 - 8.2 g/dL 06/27/2024 11:52 AM [facility] ALBUMIN 3.3(L) 3.5 - 5.0 g/dL 06/27/2024 11:52 AM [facility] A/G RATIO 1.2 1.0 - 2.2 06/27/2024 11:52 AM [facility] CALCIUM 8.7 8.7 - 10.5 mg/dL 06/27/2024 11:52 AM [facility] T BILI 0.6 0.2 - 1.2 mg/dL 06/27/2024 11:52 AM [facility] SGOT (AST) 15 5 - 34 U/L 06/27/2024 11:52 AM T [facility] SGPT (ALT) 39 0 - 55 U/L 06/27/2024 11:52 AM CDT [facility] ALKALINE PHOSPHATASE 57 40 - 150 U/L 06/27/2024 11:52 AM CDT [facility] GFR, ESTIMATED >60 >=60 06/27/2024 11:52 AM CDT [facility] Comment: Creatinine Clearance is the preferred criteria for selecting drug dose adjustments in renally impaired patients. ??The GFR is provided as additional pertinent clinical information. GFR is reported in mL/min/1.73 sq m. Calculation based on the Chronic Kidney Disease Epidemiology Collaboration (CKD- EPI) equation refit without adjustment for race. GFR, EST. >60 >=60 024 11:52 AM CDT [facility] GFR, EST. NONAFRICAN >60 >=60 06/27/2024 11:52 AM CDT [facility] Blood Venipuncture / Unknown 06/27/2024 11:20 AM CDT 06/27/2024 11:26 AM CDT us Brayan Kang MD CHEMISTRY ORDERABLES Final Re sult Performing Organization Address [facility]/ZIP Co de Phone Number [facility] [place] [address] * CT - ABDOMEN/PELVIS (06/27/2024 12:00 AM CDT) 06/27/2024 us Provider Scan IMG CT ORDERABLES Final Result SCAN * C. DIFFICILE BY PCR (06/27/2024 12:00 AM CDT) 06/27/2024 us Provider Scan MICROBIOLOGY - GENERAL ORDERABLE S Final Result Performing Organization Address City/[facility]/ZIP Co de Phone Number SCAN * Urinalysis (UA) Random (06/27/2024 12:00 AM CDT) 06/27/2024 us Provider Scan URINE ORDERABLES Final Result SCAN documented in this encounter Visit Diagnoses Diagnosis Fever of unknown origin- Primary Fever, unspecified Drug-induced colitis Metastatic melanoma (HCC) Melanoma of skin, site unspecified Acute kidney injury (HCC) Acute kidney failure, unspecified Diarrhea Hypokalemia Hypopotassemia GERD (gastroesophageal reflux disease) Esophageal reflux documented in this encounter Administered Medications Inactive Administered Medications - up to 3 most recent administrations Medication Order MAR Action Action Date Dose Rate Site 0.9 % sodium chloride solution at 125 mL/hr, Intravenous, CONTINUOUS, Starting on Tue06/27/24 at 1100, Until 06/30/24 at 1 New Bag 06/30/2024 4:43 AM CDT 125 mL/hr New Bag 06/29/2024 5:33 PM CDT 125 mL/hr New Bag 06/28/2024 10:03 PM CDT 125 mL/hr acetaminophen (TYLENOL) suppository 650 mg 650 mg, Rectal, EVERY 4 HOURS PRN, Starting on Tue06/27/24 at 1155, Until 06/30/24 at 2110, Mild pain or more severe pain if patient requests, Fever, If patient is taking oral intake without complications and both PO/MS orders are active, administer through the oral route. acetaminophen (TYLENOL) tablet 650 mg 650 mg, Oral, EVERY 4 HOURS PRN, Starting on Tue06/27/24 at 1155, Until 06/30/24 at 2110, Mild pain or more severe pain if patient requests, Fever, If patient is taking oral intake without complications and both PO/MS orders are active, administer through the oral route. cefepime (MAXIPIME) 2 g in sodium chloride 0.9 % 100 mL IVPB 2 g, Intravenous, ONCE, 1 dose, On Tue06/27/24 at 1230, Administer over 30 Minutes, Indications: Bacteremia, at 200 mL/hrIndications:Bacteremia New Bag 06/27/2024 12:36 PM CDT 2 g 200 mL/hr cefepime (MAXIPIME) 2 g in sodium chloride 0.9 % 100 mL IVPB 2 g, Intravenous, EVERY 8 HOURS, First dose on Tue06/27/24 at 2030, Until Discontinued, Administer over 4 Hours, Indications: Bacteremia, at 25 mL/hrIndications:Bacteremia New Bag 06/30/2024 12:53 PM CDT 2 g 25 mL/hr New Bag 06/30/2024 4:43 AM CDT 2 g 25 mL/hr New Bag 06/29/2024 8:09 PM CDT 2 g 25 mL/hr enoxaparin (LOVENOX) injection 40 mg 40 mg, Subcutaneous, EVERY 12 HOURS SCHEDULED, First dose on Tue06/27/24 at 2100, Until DiscontinuedIndications:Prophylaxis of Venous Thromboembolism famotidine (PF) (PEPCID) injection 20 mg 20 mg, Intravenous, 2 TIMES DAILY, First dose on Tue06/27/24 at 2100, Until Discontinued, Indications: Symptomatic Gastroesophageal Reflux DiseaseIndications:Symptomatic Gastroesophageal Reflux Disease Given 06/28/2024 9:20 AM CDT 20 mg Given 06/27/2024 8:28 PM CDT 20 mg melatonin tablet 6 mg 6 mg, Oral, NIGHTLY PRN, Starting on Tue06/27/24 at 1154, Until 06/30/24 at 2111, Other, Sleep methylPREDNISolone Na Suc (PF) (Solu-MEDROL) injection 125 mg 125 mg, Intravenous, ONCE, 1 dose, On Tue06/28/24 at 1230Indications:Drug-induced colitis Given 06/28/2024 1:05 PM CDT 125 mg methylPREDNISolone Na Suc (PF) (Solu-MEDROL) injection 125 mg 125 mg, Intravenous, DAILY, 3 doses, First dose (after last reorder) on Tue06/29/24 at 1400, Last dose on 07/01/24 at 0900Indications:Drug-induced colitis Given 06/30/2024 8:28 AM CDT 125 mg Given 06/29/2024 1:53 PM CDT 125 mg metoclopramide (REGLAN) injection 10 mg 10 mg, Intravenous, EVERY 6 HOURS PRN, Starting on Tue06/27/24 at 1042, Until 06/30/24 at 2111, Nausea - 1st line, Vomiting Given 06/28/2024 8:33 PM CDT 10 mg Given 06/28/2024 3:52 AM CDT 10 mg Given 06/27/2024 1:14 PM CDT 10 mg nicotine (NICODERM CQ) 21 MG/24HR patch 1 Patch 1 Patch, Transdermal, DAILY PRN, Starting on Tue06/27/24 at 1154, Until Tue06/30/24 at 2111, Administer over 24 Hours, Other, Nicotine dependency ondansetron (ZOFRAN) injection 4 mg 4 mg, Intravenous, EVERY 6 HOURS PRN, Starting on Tue06/27/24 at 1042, Until Tue06/30/24 at 2111, Nausea - 2nd line Given 06/28/2024 3:54 PM CDT 4 mg Given 06/27/2024 8:28 PM CDT 4 mg pantoprazole (PROTONIX) tablet 40 mg 40 mg, Oral, EVERY MORNING BEFORE BREAKFAST, First dose on Tue06/27/24 at 1230, Until Discontinued, Indications: Symptomatic Gastroesophageal Reflux DiseaseIndications:Symptomatic Gastroesophageal Reflux Disease Given 06/30/2024 8:28 AM CDT 40 mg Given 06/29/2024 8:37 AM CDT 40 mg Given 06/28/2024 9:20 AM CDT 40 mg potassium chloride (KLOR-CON) packet 40 mEq 40 mEq, Oral, ONCE, 1 dose, On Tue06/29/24 at 2200, Dissolve each packet in at least 120 mL of cold water or other beverage prior to administration. If GI irritation occurs, increase dilution. Given 06/29/2024 10:09 PM CDT 40 mEq potassium chloride IVPB 20 mEq 100 mL 20 mEq, Intravenous, ONCE, 1 dose, On Tue06/27/24 at 1230, Administer over 2 Hours, Infuse each 20 mEq over 2 hours for a total dose of 40 mEq New Bag 06/27/2024 1:07 PM CDT 20 mEq potassium chloride IVPB 20 mEq 100 mL 20 mEq, Intravenous, ONCE, 1 dose, On Tue06/27/24 at 1430, Administer over 2 Hours, Infuse each 20 mEq over 2 hours for a total dose of 40 mEq New Bag 06/27/2024 3:08 PM CDT 20 mEq potassium chloride SA (KLORCON M) tablet 40 mEq 40 mEq, Oral, 2 TIMES DAILY WITH MEALS, First dose on Tue06/28/24 at 1700, Until Discontinued, Do Not Crush Given 06/30/2024 8:28 AM CDT 40 mEq Given 06/29/2024 5:32 PM CDT 40 mEq Given 06/29/2024 8:37 AM CDT 40 mEq vancomycin (VANCOCIN) IVPB 1250 mg premix 1,250 mg, Intravenous, EVERY 8 HOURS, First dose (after last modification) on Tue06/29/24 at 1700, Until Discontinued, Administer over 90 Minutes, Indications: Bacteremia, at 166.7 mL/hrIndications:Bacteremia New Bag 06/30/2024 1:01 AM CDT 1,250 mg 166 .7 mL/hr New Bag 06/29/2024 5:36 PM CDT 1,250 mg 166.7 mL/hr vancomycin (VANCOCIN) IVPB 2000 mg premix 2,000 mg (rounded from 1,978.5 mg = 15 mg/kg ? 131.9 kg), Intravenous, EVERY 24 HOURS, First dose on Tue06/28/24 at 0500, Until Discontinued, Administer over 120 Minutes, Indications: Bacteremia, at 250 mL/hrIndications:Bacteremia New Bag 06/28/2024 5:04 AM CDT 2,000 mg 250 mL/hr vancomycin (VANCOCIN) IVPB 2000 mg premix 2,000 mg (rounded from 1,978.5 mg = 15 mg/kg ? 131.9 kg), Intravenous, EVERY 12 HOURS, First dose (after last modification) on Tue06/28/24 at 1700, Until Discontinued, Administer over 120 Minutes, Indications: Bacteremia, at 250 mL/hrIndications:Bacteremia New Bag 06/29/2024 5:25 AM CDT 2,000 mg 250 mL/hr New Bag 06/28/2024 6:17 PM CDT 2,000 mg 250 mL/hr documented in this encounter Active and Recently Administered Medications Times are shown in CDT. Scheduled Medication Order 06/28/2024 06/29/2024 06/30/2024 cefepime (MAXIPIME) 2 g in sodium chloride 0.9 % 100 mL IVPB 2 g, Intravenous, EVERY 8 HOURS, First dose on Tue06/27/24 at 2030, Until Discontinued, Administer over 4 Hours, Indications: Bacteremia, at 25 mL/hr 0028 (Stopped - Provider: Nell Sinha RN)0349 (New Bag - Provider: Nell Sinha RN)0749 (Stopped - Provider: Sherley Dyer RN)1140 (New Bag - Provider: Sherley Dyer RN)1540 (Stopped - Provider: Sherley Dyer RN)1943 (New Bag - Provider: Nell Sinha RN)2343 (Stopped - Provider: Nell Sinha RN) 0525 (New Bag - Provider: Nell Sinha RN)0925 (Stopped - Provider: Sherley Dyer RN)1329 (New Bag - Provider: Sherley Dyer RN)1729 (Stopped - Provider: Sherley Dyer RN)2008 (New Bag - Provider: Nell Sinha RN) 0009 (Stopped - Provider: Nell Sinha RN)0443 (New Bag - Provider: Nell Sinha RN)[phone] (Stopped - Provider: Sherley Dyer RN)1253 (New Bag - Provider: Sherley Dyer RN)1653 (Stopped - Provider: Sherley Dyer RN) enoxaparin (LOVENOX) injection 40 mg 40 mg, Subcutaneous, EVERY 12 HOURS SCHEDULED, First dose on Tue06/27/24 at 2100, Until Discontinued 899 (Not Given - Provider: Sherley Dyer RN - Reason: Patient/family refused - Comment: Terrified of needles)2099 (Not Given - Provider: Nell Sinha RN - Reason: Patient/family refused) 09 (Not Given - Provider: Sherley Dyer RN - Reason: Patient/family refused)2099 (Not Given - Provider: Nell Sinha RN - Reason: Patient/family refused) 09 (Not Given - Provider: Sherley Dyer RN - Reason: Patient/family refused) famotidine (PF) (PEPCID) injection 20 mg (CANCELED) 20 mg, Intravenous, 2 TIMES DAILY, First dose on Tue06/27/24 at 2100, Until Discontinued, Indications: Symptomatic Gastroesophageal Reflux Disease 0920 (Given - Provider: Sherley Dyer RN) methylPREDNISolone Na Suc (PF) (Solu-MEDROL) injection 125 mg (COMPLETED) 125 mg, Intravenous, ONCE, 1 dose, On Tue06/28/24 at 1230 1305 (Given - Provider: Sherley Dyer RN) methylPREDNISolone Na Suc (PF) (Solu-MEDROL) injection 125 mg 125 mg, Intravenous, DAILY, 3 doses, First dose (after last reorder) on Tue06/29/24 at 1400, Last dose on Tue07/01/24 at 0900 1353 (Given - Provider: Sherley Dyer RN) 0828 (Given - Provider: Sherley Dyer RN) pantoprazole (PROTONIX) tablet 40 mg 40 mg, Oral, EVERY MORNING BEFORE BREAKFAST, First dose on Tue06/27/24 at 1230, Until Discontinued, Indications: Symptomatic Gastroesophageal Reflux Disease 0920 (Given - Provider: Sherley Dyer RN) 0837 (Given - Provider: Sherley Dyer RN) 0828 (Given - Provider: Sherley Dyer RN) potassium chloride (KLOR-CON) packet 40 mEq (COMPLETED) 40 mEq, Oral, ONCE, 1 dose, On Tue06/29/24 at 2200, Dissolve each packet in at least 120 mL of cold water or other beverage prior to administration. If GI irritation occurs, increase dilution. 220 (Given - Provider: Nell Sinha RN) potassium chloride SA (KLORCON M) tablet 40 mEq 40 mEq, Oral, 2 TIMES DAILY WITH MEALS, First dose on Tue06/28/24 at 1700, Until Discontinued, Do Not Crush 1554 (Given - Provider: Sherley Dyer RN)1700 (Canceled Entry - Provider: Sherley Dyer RN - Comment: Given at 1554) 0837 (Given - Provider: Sherley Dyer RN)1732 (Given - Provider: Sherley Dyer RN) 0828 (Given - Provider: Sherley Dyer RN)1700 (Not Given - Provider: Sherley Dyer RN - Reason: Other) vancomycin (VANCOCIN) IVPB 1250 mg premix (CANCELED) 1,250 mg, Intravenous, EVERY 8 HOURS, First dose (after last modification) on Tue06/29/24 at 1700, Until Discontinued, Administer over 90 Minutes, Indications: Bacteremia, at 166.7 mL/hr 1736 (New Bag - Provider: Sherley Dyer RN)1906 (Stopped - Provider: Nell Sinha RN) 0101 (New Bag - Provider: Nell Sinha RN)0231 (Stopped - Provider: Nell Sinha RN)0900 (Not Given - Provider: Sherley Dyer RN - Reason: Other) vancomycin (VANCOCIN) IVPB 2000 mg premix (CANCELED) 2,000 mg (rounded from 1,978.5 mg = 15 mg/kg ? 131.9 kg), Intravenous, EVERY 24 HOURS, First dose on Barb 06/28/24 at 0500, Until Discontinued, Administer over 120 Minutes, Indications: Bacteremia, at 250 mL/hr 0504 (New Bag - Provider: Nell Sinha RN)0704 (Stopped - Provider: Sherley Dyer RN) vancomycin (VANCOCIN) IVPB 2000 mg premix (CANCELED) 2,000 mg (rounded from 1,978.5 mg = 15 mg/kg ? 131.9 kg), Intravenous, EVERY 12 HOURS, First dose (after last modification) on Barb 06/28/24 at 1700, Until Discontinued, Administer over 120 Minutes, Indications: Bacteremia, at 250 mL/hr 1817 (New Bag - Provider: Sherley Dyer RN - Comment: Medication wasn't on floor)2016 (Stopped - Provider: Nell Sinha RN) 0525 (New Bag - Provider: Nell Sinha RN)0725 (Stopped - Provider: Sherley Dyer RN) Continuous Medication Order 06/28/2024 06/29/2024 06/30/2024 0.9 % sodium chloride solution at 125 mL/hr, Intravenous, CONTINUOUS, Starting on Tue06/27/24 at 1100, Until 06/30/24 at 2111 0349 (New Bag - Provider: Nell Sinha RN)2203 (New Bag - Provider: Nell Sinha RN) 1732 (Stopped - Provider: Sherley Dyer RN)1733 (New Bag - Provider: Sherley Dyer RN) 0443 (New Bag - Provider: Nell Sinha RN)1733 (Stopped - Provider: Sherley Dyer, RN) PRN Medication Order 06/28/2024 06/29/2024 06/30/2024 acetaminophen (TYLENOL) suppository 650 mg(Linked Group 1) 650 mg, Rectal, EVERY 4 HOURS PRN, Starting on Tue06/27/24 at 1155, Until 06/30/24 at 2111, Mild pain or more severe pain if patient requests, Fever, If patient is taking oral intake without complications and both PO/MS orders are active, administer through the oral route. acetaminophen (TYLENOL) tablet 650 mg(Linked Group 1) 650 mg, Oral, EVERY 4 HOURS PRN, Starting on Tue06/27/24 at 1155, Until 06/30/24 at 2110, Mild pain or more severe pain if patient requests, Fever, If patient is taking oral intake without complications and both PO/MS orders are active, administer through the oral route. melatonin tablet 6 mg 6 mg, Oral, NIGHTLY PRN, Starting on Tue06/27/24 at 1154, Until 06/30/24 at 2111, Other, Sleep metoclopramide (REGLAN) injection 10 mg 10 mg, Intravenous, EVERY 6 HOURS PRN, Starting on Tue06/27/24 at 1042, Until 06/30/24 at 2110, Nausea - 1st line, Vomiting 0352 (Given - Provider: Nell Sinha RN)2032 (Given - Provider: Nell Sinha, KRISTAL) nicotine (NICODERM CQ) 21 MG/24HR patch 1 Patch 1 Patch, Transdermal, DAILY PRN, Starting on Tue06/27/24 at 1154, Until 06/30/24 at 2111, Administer over 24 Hours, Other, Nicotine dependency ondansetron (ZOFRAN) injection 4 mg 4 mg, Intravenous, EVERY 6 HOURS PRN, Starting on Tue06/27/24 at 1042, Until 06/30/24 at 2110, Nausea - 2nd line 1554 (Given - Provider: Sherley Dyer, KRISTAL) Linked Groups Order Group 1: acetaminophen (TYLENOL) tablet 650 mgJump to med 650 mg, Oral, EVERY 4 HOURS PRN, Starting on Tue06/27/24 at 1155, Until 06/30/24 at 2111, Mild pain or more severe pain if patient requests, Fever, If patient is taking oral intake without complications and both PO/MS orders are active, administer through the oral route. Or acetaminophen (TYLENOL) suppository 650 mgJump to med 650 mg, Rectal, EVERY 4 HOURS PRN, Starting on 06/27/24 at 1155, Until 06/30/24 at 2111, Mild pain or more severe pain if patient requests, Fever, If patient is taking oral intake without complications and both PO/MS orders are active, administer through the oral route. documented in this encounter Additional Health Concerns Infection Onset Date Last Indicated Resolved Time C. difficile Rule-Out Comment:Patient tested at [facility] and PCR was negative. 06/27/2024 06/27/2024 5:17 AM CDT documented as of this encounter Care Teams Rn Review Relationship Specialty Start Date End Date Kellen Chu MD [address] [place] [address] PCP - General Family Medicine 04/18/24 Markus Finley MD [address] [place] [address] Consulting Physician Medical Oncology 04/18/24 documented as of this encounter
--- OUTSIDE RECORDS SUMMARY | 2024-10-26 08:04 | XMS_ITS | Encounter Summary ---
Author Organization [facility] Address [address] [place] [address] Phone Care Team Providers Care Airport Baggage Screener Name Role Phone Pritesh Chu MD Primary Care Provider [phone] Markus Finley MD Unavailable [phone] Reason for Visit * Episode Based Medications (Routine) - Closed Specialty Diagnoses / Procedures Referred By Contross t Referred To Contact Diagnoses Metastatic melanoma (HCC) Markus Finley MD [address] [place] [address] Phone: tel: fax: [facility] [address] [place] [address] Phone: tel: fax: Referral ID Status Reason Start Date Expiration Date Visits Re quested Visits Authorized [id number] Closed 04/19/2024 1 30 Encounter Details Date Type Department Care Team (Late st Contact Info) Description 07/17/2024 1:30 PM CDT Clinical Support [facility] [address] [place] [address] Markus Finley MD [address] [place] [address] Metastatic melanoma (HCC) (Primary Dx) Discharge Disposition: Discharged to home or Selfcare Social History Tobacco Use Types Packs/Day Years Used Date Smoking Tobacco: Former Cigarettes 0.5 8.5 S tarted: 04/18/2016 Smokeless Tobacco: Never Alcohol Use Standard Drinks/Week Comments Yes 0 (1 standard drink = 0.6 oz pur e alcohol) [facility] Utilities Answer Date Recorded [...] any clubs o r organizations such as adventism groups, unions, fraternal or athletic groups, or [...] and heating? Not hard at all 06/27/2024 [facility] - Occupational Stress [...] [facility] were you [facility] or living in a fci (including now)? No 06/27/2024 Comments No Sex and Gender Information Value Date Recorded Sex Assigned at Female 06/20/2024 8:39 AM CDT Legal Sex Female 9:04 AM CDT Gender Identity Female 06/20/2024 8:39 AM CDT Sexual Orientation Bisexual 06/20/2024 8: 39 AM CDT documented as of this encounter Last Filed Vital Signs Vital Sign Reading Time Taken Comments Blood Pressure 117/78 07/17/2024 1:39 PM CDT Pulse 58 07/17/2024 1:39 PM CDT Temperature - - Respiratory Rate - - Oxygen Saturation 97% 07/17/2024 1:39 PM CDT Inhaled Oxygen Concentration - - Weight 128.1 kg (282 lb 4.8 oz) 07/17/2024 1:39 PM CDT Height - - Body Mass Index 45.56 07/12/2024 10:25 AM CDT documented in this encounter Miscellaneous Notes * Interdisciplinary - Liliana Finney RN - 07/17/2024 1:30 PM CDT Pt arrived with fiance for infusion. VS obtained. Reviewed labs completed at [facility] yesterday; OKfor treatment. No diarrhea for at least 3 days. Per DAVID DENNIS for treatment. Port accessed x1 attempt; flushed easily with no blood return. Medication given per MD order and pt tolerated well. PET scan ordered sent to [facility] and referral updated in [facility]. Port flushed with NS and heparin per protocol and port needle removed. Port site covered with bandaid. Patient left tx area in stable conditionwith no further requests. documented in this encounter Plan of Treatment Upcoming Encounters Date Type Department Care Team (Late st Contact Info) Description 11/15/2024 1:00 PM [employer] [facility] [address] [place] [address] Markus Finley MD [address] [place] [address] 11/15/2024 2:00 PM [employer] [facility] [address] [facility] [place] [address] Markus Finley MD [address] [place] [address] Discharge Disposition: Discharged to home or Selfcare documented as of this encounter Visit Diagnoses Diagnosis Metastatic melanoma (HCC)- Primary Melanoma of skin, site unspecified documented in this encounter Administered Medications Inactive Administered Medications - up to 3 most recent administrations Medication Order MAR Action Action Date Dose Rate Site 0.9 % sodium chloride solution at 999 mL/hr, Intravenous, ONCE, 1 dose, On Tue07/17/24 at 1430Indications:Metastatic melanoma (HCC) New Bag 07/17/2024 2:01 PM CDT 250 mL 999 mL/hr Heparin Na (Pork) Lock Flsh PF SOLN 50 Units 50 Units, Intravenous, PRN, Starting on Tue07/17/24 at 1336, Until Tue07/17/24 at 1725, Line Care, Line care per [facility].Indications:Metastatic melanoma (HCC) Given 07/17/2024 3:14 PM CDT 50 Units ipilimumab (YERVOY) 100 mg in sodium chloride 0.9 % 250 mL chemo IVPB 100 mg (1 mg/kg ? 100 kg Order-specific weight), Intravenous, ONCE, 1 dose, On Tue07/17/24 at 1400, Administer over 30 Minutes, Administer through a low protein binding 0.2 or 1.2 micron in-line filter. Do not administer other medications through the same IV line. Flush IV line at the end of the infusion.Indications:Metasta tic melanoma (HCC) New Bag 07/17/2024 2:38 PM CDT 100 mg nivolumab (Opdivo) 300 mg in sodium chloride 0.9 % 100 mL IVPB 300 mg (3 mg/kg ? 100 kg Order-specific weight), Intravenous, ONCE, 1 dose, On Tue07/17/24 at 1400, Administer over 30 Minutes, Administer nivolumab first, and promptly flush the line with saline prior to starting ipilimumab. Administer through a line with a sterile, nopyrogenic, low protein binding 0.2 to 1.2 micrometer in-line filter. Do not administer other medications through the same IV line. Flush IV line at the end of the infusion.Indications:Metasta tic melanoma (HCC) New Bag 07/17/2024 2:04 PM CDT 300 mg documented in this encounter Care Teams Airport Baggage Screener Relationship Specialty Start Date End Date Pritesh Chu MD [address] [address] PCP - General Family Medicine 04/18/24 Markus Finley MD [address] [place] [address] Consulting Physician Medical Oncology 04/18/24 documented as of this encounter
--- OUTSIDE RECORDS SUMMARY | 2024-10-26 08:04 | XMS_ITS | Encounter Summary ---
Author Organization [facility] Address [address] [facility] [place] [address] Phone Care Team Providers Care Real Estate Legal Assistant Name Role Phone Pritesh Chu MD Primary Care Provider [phone] Markus Finley MD Unavailable [phone] Reason for Visit * Reason Comments Follow-up Encounter Details Date Type Department Care Team (Late st Contact Info) Description 06/12/2024 2:45 PM CDT [facility] [address] [place] [phone] Markus Finley MD [address] [place] [address] Jenn Medellin [place], PAC [address] [place] [address] Metastatic melanoma (HCC) (Primary Dx); Abnormal TSH [...] AM CDT documented as of this encounter Patient Instructions * Patient Instructions* Jenn Medellin PAC - 06/12/2024 2:45 PM CDT Will proceed with labs for CMP, TSH, T3, T4. Contact textile converter for excision of lesions to dorsal aspect left foot as well as medial distal 1/3 left lower extremity for pathology and further evaluation. Proceed with immunotherapy today as scheduled. Continue labs and treatment as scheduled. Keep scheduled follow up with Dr. Finley. documented in this encounter Progress Notes * Jenn Medellin PAC - 06/12/2024 2:45 PM CDT Outpatient Hem/Onc Progress Note Dayanara Hilton is a 24 y.o. female who presents for follow-up for metastatic melanoma left lowerextremity. She was last evaluated 05/08/2024, at that time she had reported a small circular area to her left lower abdomen that was consistent with tinea corporis. She reports that area has since improved. She does report for approximate the last 4 weeks has had a small black area to lower left extremity. She said initially it appeared scabbed and she did not think anything of it when she was here last but now the scab like appearance has resolved and black lesion in his left. She has also noticed a new raised black area within her surgical scarring to the dorsal aspect of her left foot. Shealso wishes to review recent test results and MRI. ECO DIAGNOSIS/TREATMENT HISTORY: 06/14/2023 lesion left foot. Excision was performed demonstrating ulcerated malignant melanoma 6.1 mm thick with deep margins 2.2 mm from the melanoma 08/1923-underwent wide excision and sentinel lymph node biopsy that showed no residual melanoma on the wide excision and lymph node positive involving lateral superficial left groin and left groin superficial vertical with metastatic melanoma. 09/13/[address] Christopher Meeks 09/27/2023 PET-CT identified no evidence of active malignancy. 02/20/2024 evaluated for new mole near previous excision site, pathology demonstrated residual/recurrent melanoma; margins negative. Nodular type with no ulceration. Maximum thickness 6.1 mm with tissue resected initially 06/14/2023. Currently specimen showed thickness of 3.3 mm. No lymphovascular invasion. Closest margin to invasive melanoma 0.08 mm. 04/03/2024 PET-CT completed identifying multiple subcutaneous masses in the left branham and anterior medial left thigh with increased activity consistent with metastatic disease. ALLERGIES: No Known Allergies MEDICATIONS: Current Outpatient Medications Medication Sig Dispense Refill Calcium Carbonate Antacid (TUMS PO) Take by mouth in the morning and at bedtime. ibuprofen (MOTRIN) 400 MG Tablet Take 400 mg by mouth every 6 hours as needed. 1-20 MG-MCG(24) Tablet Take 1 Tablet by mouth daily. omeprazole (PriLOSEC) 40 MG CAPSULE DELAYED RELEASE Take 1 Capsule by mouth daily. 30 Capsule 3 No current facility-administered medications for this visit. Facility-Administered Medications Ordered in Other Visits Medication Dose Route Frequency Provider Last Rate Last Admin Heparin Na (Pork) Lock Flsh PF SOLN 50 Units 50 Units Intravenous PRN Markus Finley MD ipilimumab (YERVOY) 130 mg in sodium chloride 0.9 % 250 mL chemo IVPB 1 mg/kg Intravenous Once Markus Finley MD PMS/H: Past Medical History Positives Diagnosis Date Depression Melanoma (HCC) Miscarriage 07/09/2022 Miscarriage 12/2022 Non-alcoholic fatty liver disease Obesity Past Surgical History: Procedure Laterality Date APPENDECTOMY 2005 ONC ACCESS PORTACATH SKIN GRAFT 08/25/2023 SOCIAL: Social History Socioeconomic History Marital status: Single Spouse name: Not on file Number of children: Not on file Years of education: Not on file Highest education level: Not on file Occupational History Not on file Tobacco Use Smoking status: Former Current packs/day: 0.50 Average packs/day: 0.5 packs/day for 8.2 years (4.1 ttl pk-yrs) Types: Cigarettes Start date: 04/18/2016 Smokeless tobacco: Never Vaping Use Vaping status: Never Used Substance and Sexual Activity Alcohol use: Yes Drug use: Not Currently Types: Marijuana Sexual activity: Not on file Other Topics Concern Not on file Social History Narrative Not on file Social Determinants of Health Financial Resource Needs: Not on file Food Insecurity Needs: Not on file Transportation Needs: Not on file Physical Activity: Not on file Stress: Not on file Social Integration: Not on file Intimate Partner Violence: Not on file Housing Stability: Not on file FAMILY HX: Family History Problem Relation Age of Onset Prostate Cancer Father Chronic Obstructive Pulmonary Disease Father VITAL SIGNS: Refer to clinical support note this date GENERAL EXAM: GENERAL: Well developed, well nourished, obese, in no acute distress. AAO x3. Cooperative. HEENT: Normocephalic. PERRLA. Nonicteric. NECK: Supple/ non tender/ full ROM LYMPH NODES: No adenopathy. CARDIOVASCULAR: RRR/ S1S2/ No m/g/c/r. PULMONARY: Respirations easy and regular. Breath sounds clear bilaterally. No rhonchi/ rales/ wheezes. MUSCULOSKELETAL: Normal gait and movement of extremities. SKIN: General-warm, pink and dry. 1 mm black lesion noted to anterior medial aspect distal 1/3 leftlower extremity. 1 mm raised black lesion noted to lateral aspect surgical wound dorsal aspect leftfoot. PSYCHIATRIC: Euthymic. Affect congruent with mood. Normal thought process. DATA: CBC: 06/11/2024 WBC 7.1 Hgb 14.8 Hct 40.7 Platelets 280 ANC 3.78 ALC 2.74 05/21/2024 TSH 0.10 DIAGNOSTIC IMAGING STUDIES: 05/29/2024 IMPRESSION: Prominent nonspecific increased T2 signal extending 3 cm craniocaudally along a gyrus at the medialright parietal lobe without evidence encephalomalacia, mass effect or enhancement an which appears likely to been present in associated with decreased metabolic activity on PET-CT studies dating backto 09/27/2023. This would argue against a malignant or acute infectious etiology. Would consider low -grade neoplasm, focal cortical dysplasia, sequelae of old infarct or infection or demyelinating disease. 2. Otherwise unremarkable brain MR with no enhancing lesions to suggest metastatic disease Assessment: Diagnoses and all orders for this visit: Metastatic melanoma (HCC) Abnormal TSH - THYROID SCREEN WITH REFLEX; Future - THYROXINE (T4) FREE; Future - TRIIODOTHYRININE (T3) TOTAL; Future Plan: Reviewed and discussed above results. Will proceed with labs for CMP, TSH, T3, T4. Contact textile converter for excision of lesions to dorsal aspect left foot as well as medial distal 1/3 left lower extremity for pathology and further evaluation. Proceed with immunotherapy today as scheduled. Continue labs and treatment as scheduled. Keep scheduled follow up with Dr. Finley. Diagnoses and all orders for this visit: Metastatic melanoma (HCC) Abnormal TSH - THYROID SCREEN WITH REFLEX; Future - THYROXINE (T4) FREE; Future - TRIIODOTHYRININE (T3) TOTAL; Future Return in about 3 weeks (around 07/03/2024) for Review labs/ tests after completed. The patient was given an opportunity to ask questions, and all questions answered to patient's satisfaction. Patient verbalizes understanding of the plan as outlined above. Patient Instructions Will proceed with labs for CMP, TSH, T3, T4. Contact textile converter for excision of lesions to dorsal aspect left foot as well as medial distal 1/3 left lower extremity for pathology and further evaluation. Proceed with immunotherapy today as scheduled. Continue labs and treatment as scheduled. Keep scheduled follow up with Dr. Finley. documented in this encounter Plan of Treatment Upcoming Encounters Date Type Department Care Team (Late st Contact Info) Description 11/15/2024 1:00 PM GERM DRIER Lab [facility] [address] [place] [address] Markus Finley MD [address] [place] [address] 11/15/2024 2:00 PM GERM DRIER Appointment [facility] [address] [place] [address] Markus Finley MD [address] [place] [address] Discharge Disposition: Discharged to home or Selfcare documented as of this encounter Results * TRIIODOTHYRININE (T3) TOTAL (06/12/2024 2:14 PM CDT) T3 107 40 - 193 ng/dL 06/12/2024 9:46 PM CDT [facility] Blood Sub-Q Port Venou s Access Device (Medi-Port, Implanted Port) / Unknown 06/12/2024 2:14 PM CDT 06/12/2024 2:14 PM CDT [facility] PAC CHEMISTRY ORDERABLES Susan l Result [facility] [address] [place] [address], [place] * THYROXINE (T4) FREE (06/12/2024 2:14 PM CDT) T4 FREE 0.8 0.7 - 1.9 ng/dL 06/12/2024 4:25 PM CDT [facility] Blood Sub-Q Port Venou s Access Device (Medi-Port, Implanted Port) / Unknown 06/12/2024 2:14 PM CDT 06/12/2024 2:14 PM CDT [facility] PAC CHEMISTRY ORDERABLES Susan l Result [facility] [address] [place] [address] documented in this encounter Visit Diagnoses Diagnosis Metastatic melanoma (HCC)- Primary Melanoma of skin, site unspecified Abnormal TSH Other abnormal clinical finding documented in this encounter Care Teams Real Estate Legal Assistant Relationship Specialty Start Date End Date Pritesh Chu MD [address] [address] PCP - General Family Medicine 04/18/24 Markus Finley MD [address] [place] [address] Consulting Physician Medical Oncology 04/18/24 documented as of this encounter
--- OUTSIDE RECORDS SUMMARY | 2024-10-26 08:04 | XMS_ITS | Encounter Summary ---
Author Organization [facility] Address [address] [place] [address] Phone Care Team Providers Care Dairy Truck Driver Name Role Phone Pritesh Chu MD Primary Care Provider Markus Finley MD Unavailable [phone] Reason for Referral * Radiology Services (Routine) - Closed Specialty Diagnoses / Procedures Referred By Delbert villareal Referred To Contact Radiology Diagnoses Metastatic melanoma (HCC) Procedures PET CT TUMOR IMAGING SKULL BASE TO MID THIGH PET CT TUMOR IMAGING SKULL BASE TO MID THIGH Markus Finley MD [address] [place] [address] Phone: tel: fax: [facility] [address] [place] [phone] Phone: tel: fax: Referral ID Status Reason Start Date Expiration Date Visits Re quested Visits Authorized [id number] Closed 07/12/2024 1 1 Reason for Visit * Reason Comments 1 week f/u * Episode Based Medications (Routine) - Closed Specialty Diagnoses / Procedures Referred By Delbert t Referred To Contact Diagnoses Metastatic melanoma (HCC) Markus Finley MD [address] [place] [address] Phone: tel: fax: [facility] [address] [place] [phone] Phone: tel: fax: Referral ID Status Reason Start Date Expiration Date Visits Re quested Visits Authorized [id number] Closed 04/19/2024 1 30 Encounter Details Date Type Department Care Team (Late st Contact Info) Description 07/12/2024 10:20 AM CDT Office Visit [facility] [address] [place] [phone] [place] [address] [place] [phone] Metastatic melanoma (HCC) (Primary Dx); Immunotherapy; Diarrhea due to drug Discharge Disposition: Discharged to home or Selfcare Social History Tobacco Use Types Packs/Day Years Used Date Smoking Tobacco: Former Cigarettes 0.5 8.5 S tarted: 04/18/2016 Smokeless Tobacco: Never Tobacco Cessation:Counseling Given: Not Answered Alcohol Use Standard Drinks/Week Comments Yes 0 (1 standard drink = 0.6 oz pur e alcohol) [facility] Utilities Answer Date Recorded In the past 12 months has [employer], oil, or water [employer] threatened to shut off services in your home? Patient declined 08/01/2024 Social Connection and Isolation Panel [NHANES] A nswer Date Recorded In a typical week, how many times do you talk on the phone with family, friends, or neighbors? Patient declined 08/01/2024 How often do you get togethe r with friends or relatives? Patient declined 08/01/2024 How often do you attend jew or sikh serv ices? Patient declined 08/01/2024 Do you [...] medical care, and heating? Patient declined 08/01/2024 [facility] - Occupational Stress Questionnaire Answer [...] Sign Reading Time Taken Comments Blood Pressure 117/84 07/12/2024 10:25 AM CDT Pulse 90 07/12/2024 10:25 AM CDT Temperature 36.3 ??C (97.4 ??F) 07/12/2024 10:25 AM C DT Respiratory Rate 20 07/12/2024 10:25 AM CDT Oxygen Saturation 100% 07/12/2024 10:25 AM CDT Inhaled Oxygen Concentration - - Weight 122.5 kg (270 lb) 07/12/2024 10:25 AM CDT Height 167.6 cm (5' 6 ) 07/12/2024 10:25 AM CDT Body Mass Index 43.58 07/12/2024 10:25 AM CDT documented in this encounter Functional Status * Audit-C Score Answer Date of Assessment Author -1 08/01/2024 5:03 PM CDT Andrew Hdz RN * Within the last year, have you been humiliated or emotionally abused in other ways by your partner or ex-partner? Answer Date of Assessment Author Patient declined 08/01/2024 5:03 PM CDT Elliott Hdz RN * Within the last year, have you been afraid of your partner or ex-partner? Answer Date of Assessment Author Patient declined 08/01/2024 5:03 PM CDT Elliott Hdz, KRISTAL * Within the last year, have you been raped or forced to have any kind of sexual activity by your partner or ex-partner? Answer Date of Assessment Author Patient declined 08/01/2024 5:03 PM CDT Elliott Hdz RN * Within the last year, [...] encounter Progress Notes * Seble Artis - 07/12/2024 10:20 AM CDT Images from the original note were not included. Outpatient Hem/Onc Progress Note PROGRESS NOTE Dayanara Hilton is a 24 y.o. female seen today for follow up of metastatic melanoma. Patient requests to be called Chris. She is here today for 1 week follow up to review performance status. Chris continues Prednisone 80 mg daily at 8 AM with food. She reports taking Klorcon 20 MEQ 3 tabs BID. Chris denies any difficulties swallowing. She complains of globulus sensation in the throat. Reports compliance with Omeprazole 40 mg daily. Denies much nausea. Chris reports currently taking Lomotil 2.5 mg every 6 hours to control diarrhea. She repots 5-6 bowel movements daily. Patient reports stool consistency has improved as long as she has bowel movement on sensation vs waiting. Reports watery stool when held too long. Chris denies blood, fat, or mucous in stool. Denies postural dizziness. Chris reports ability to eat has improved with weight gain appreciated. She reports her sleep cycle is altered by working night shifts. Patient reports she has completed 2 shifts since I last saw her. Chris complains of darkened area on graft area anterior left branham just superior to ankle. Chris is currently on treatment with Opdivo 3 mg/kg plus Yervoy 1 mg/kg every 28 days, started on 05/01/24. ECOG PERFORMANCE STATUS:1 DIAGNOSIS/TREATMENT HISTORY: Metastatic melanoma [...] identifying multiple subcutaneous masses in the left barnham and anteromedial left thigh with increased activity, [...] have been marked as taking for the 07/12/24 encounter (Appointment) with Markus Finley MD. Allergies as of 07/12/2024 (No Known Allergies) REVIEW OF SYSTEMS Review [...] increase in size since last OV Skin: Comments: Lesions drawn in red PAIN ASSESSMENT: Chris complains of abdominal pain that waxes and wanes. DATA: Lab Results Component Value Date WBC 18.81 (H) 07/03/2024 RBC 6.30 (H) 07/03/2024 HEMOGLOBIN 18.5 (H) 07/03/2024 HEMATOCRIT 52.1 (H) 07/03/2024 MCV 82.7 07/03/2024 MCH 29.4 07/03/2024 MCHC 35.5 07/03/2024 PLATELETCNT 436 07/03/2024 RDW 12.8 07/03/2024 LYMPHOCYTES 29.2 04/18/2024 RELEOS 1.3 04/18/2024 RELBAS 0.6 04/18/2024 ANC 5.28 04/18/2024 MONOCYTES 0.51 04/18/2024 EOSINOPHILS 0.11 04/18/2024 BASOPHILS 0.05 04/18/2024 Lab Results Component Value Date SODIUM 133 (L) 07/10/2024 POTASSIUM 3.9 07/10/2024 CHLORIDE 109 (H) 07/10/2024 ANIONGAP 9.9 07/10/2024 GLUCOSE 143 (H) 07/10/2024 BUN 4 (L) 07/10/2024 CREATININE 0.85 07/10/2024 TOTALPROTEIN 5.8 (L) 07/10/2024 ALBUMIN 3.3 (L) 07/10/2024 CALCIUM 8.6 (L) 07/10/2024 SGPTALT 44 07/10/2024 ALKALINEPHO 74 07/10/2024 02/21/24 PATHOLOGY REPORT [facility]: FINAL DIAGNOSIS: Skin, [...] IMAGING STUDIES: CT abdomen pelvis done at [facility] on 06/27/2024 No evidence of appendicitis. No [...] to dehydration and hypotension Hypokalemia Plan: 2. RESTART treatment with Opdivo 3 mg/kg and Yervoy 1 mg/kg immunotherapy for treatment of metastatic melanoma. She will complete labs Tuesday prior to treatment at [facility]. Patient will remain on current interventions; Prednisone, Klorcon, and Lomotil(prn for diarrhea). Will repeat PET CT2 weeks after next treatment to assess treatment response. 3. 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 Will plan to continue current dose and restart immunotherapy with plans to decrease at another date. 4. Continue Klorcon 20 MEQ 3 tabs BID to maintain level while experiencing diarrhea. Will monitor labs to see if intervention can be decreased. 5. Continue Lomotil 2.5 mg QID as needed for treatment related diarrhea. Refilled this interventionfor patient today. Patient was encouraged to try OTC Imodium for mild symptoms to prevent constipation. 6. Continue Omeprazole 40 mg daily for acid reflux symptoms. Continue Ondansetron ODT 8 mg every 8 hours as needed for treatment related nausea. Use Prochlorperazine 10 mg every 6 hours for break through symptoms. 7. Encouraged Dayanara to eat bland soups, [...] go to exchange after hours. 9. Check [id number] in the blood today. Tempus XT on original tissue is pending Repeat labs Tuesday with treatment Tuesday Follow up in [address] prior The patient was given an opportunity to ask questions, and all questions answered to patient's satisfaction. Patient verbalizes understanding of the plan as outlined above. The documentation for this visit was completed by Seble Artis acting as a scribe for Markus Moses MD. 07/12/2024, 8:09 AM CDT * Markus Finley MD - 07/12/2024 10:20 AM CDT Images from the original note were not included. Outpatient Hem/Onc Progress Note PROGRESS NOTE Dayanara Hilton is a 24 y.o. female seen today for follow up of metastatic melanoma. Patient requests to be called Chris. She is here today for 1 week follow up to review performance status. Chris continues Prednisone 80 mg daily at 8 AM with food. She reports taking Klorcon 20 MEQ 3 tabs BID. Chris denies any difficulties swallowing. She complains of globulus sensation in the throat. Reports compliance with Omeprazole 40 mg daily. Denies much nausea. Chris reports currently taking Lomotil 2.5 mg every 6 hours to control diarrhea. She repots 5-6 bowel movements daily. Patient reports stool consistency has improved as long as she has bowel movement on sensation vs waiting. Reports watery stool when held too long. Chris denies blood, fat, or mucous in stool. Denies postural dizziness. Chris reports ability to eat has improved with weight gain appreciated. She reports her sleep cycle is altered by working night shifts. Patient reports she has completed 2 shifts since I last saw her. Chris complains of darkened area on graft area anterior left branham just superior to ankle. Chris is currently on treatment with Opdivo 3 mg/kg plus Yervoy 1 mg/kg every 28 days, started on 05/01/24. ECOG PERFORMANCE STATUS:1 DIAGNOSIS/TREATMENT HISTORY: Metastatic melanoma [...] Outpatient Medications Marked as Taking for the 07/12/24 encounter (Office Visit) with Markus Finley MD Medication Sig Dispense Refill 1-20 MG-MCG(24) Tablet Take 1 Tablet by mouth daily. [DISCONTINUED] omeprazole (PriLOSEC) 40 MG CAPSULE DELAYED RELEASE TAKE 1 CAPSULE BY MOUTH DAILY 90Capsule 0 [DISCONTINUED] potassium chloride SA (KLORCON M) 20 MEQ Tablet Controlled Release Take 3 Tablets bymouth 2 times daily. 90 Tablet 2 [DISCONTINUED] predniSONE (DELTASONE) 20 MG Tablet Take 4 Tablets by mouth daily. 90 Tablet 2 Allergies as of 07/12/2024 (No Known Allergies) REVIEW OF SYSTEMS Review [...] increase in size since last OV Skin: Comments: Lesions drawn in red PAIN ASSESSMENT: Chris complains of abdominal pain [...] IMAGING STUDIES: CT abdomen pelvis done at [facility] on 06/27/2024 No evidence of appendicitis. No [...] withpatient and family. Made them aware of improvement in labs. Her GI side effects- diarrhea etc are under control with current steroid use. Will attempt treatment with IO again given symptoms controlled. Pt agreeable. Discussed risk of recurrence of symptoms. She understands . Discussed diagnosis, treatment options and prognostic implication of disease. 2. RESTART treatment with Opdivo 3 mg/kg and Yervoy 1 mg/kg immunotherapy for treatment of metastatic melanoma. She will complete labs Tuesday prior to treatment at [facility]. Patient will remain on current interventions; Prednisone, Klorcon, and Lomotil(prn for diarrhea). Will repeat PET CT2 weeks after next treatment to assess treatment response. 3. 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 Will plan to continue current dose and restart immunotherapy with plans to decrease at another date. 4. Continue Klorcon 20 MEQ 3 tabs BID to maintain level while experiencing diarrhea. Will monitor labs to see if intervention can be decreased. 5. Continue Lomotil 2.5 mg QID as needed for treatment related diarrhea. Refilled this interventionfor patient today. Patient was encouraged to try OTC Imodium for mild symptoms to prevent constipation. 6. Continue Omeprazole 40 mg daily for acid reflux symptoms. Continue Ondansetron ODT 8 mg every 8 hours as needed for treatment related nausea. Use Prochlorperazine 10 mg every 6 hours for break through symptoms. 7. Encouraged Dayanara to eat bland soups, [...] go to exchange after hours. 9. Check [id number] in the blood today. Tempus XT on original tissue is pending Repeat labs Tuesday with treatment Tuesday Follow up in [address] prior The patient was given an opportunity to ask questions, and all questions answered to patient's satisfaction. Patient verbalizes understanding of the plan as outlined above. The documentation for this visit was completed by Seble Artis acting as a scribe for Markus Moses MD. 09/16/2024, 10:44 AM BUNDLES HANGER The documentation recorded by the scribe was completed while in the exam room with me and the patient. The documentation accurately reflects the service I personally performed and the decisions made by me. I have confirmed and edited the documentation as necessary. Markus Finley MD 09/16/2024, 10:44 AM BUNDLES HANGER LES HANGER documented in this encounter Miscellaneous Notes * Interdisciplinary - Zabrina Raines CMA - 07/12/2024 10:20 AM CDT Pt here for follow up visit no falls no pain appetite is good pt is feeling a lot better * Interdisciplinary - Zabrina Raines CMA - 07/12/2024 10:20 AM CDT Pt given AVS with appt by nurse documented in this encounter Plan of Treatment Upcoming Encounters Date Type Department Care Team (Late st Contact Info) Description 11/15/2024 1:00 PM BUNDLES HANGER [facility] [address] [place] [address] Markus Finley MD [address] [place] [address] 11/15/2024 2:00 PM BUNDLES HANGER [facility] [address] [place] [address] Markus Finley MD [address] [place] [address] Discharge Disposition: Discharged to home or Selfcare Scheduled Orders Name Type Priority Associated Diagnoses Orde r Schedule PET CT TUMOR IMAGING SKULL BASE TO MID THIGH Imaging Routine Metastatic melanoma (HCC) Expected: 07/24/2024 (Approximate), Expires: 09/16/2024 documented as of this encounter Visit Diagnoses Diagnosis Metastatic melanoma (HCC)- Primary Melanoma of skin, site unspecified Immunotherapy Reserved for inherently not codable concepts WITHOUT codable children Diarrhea due to drug Diarrhea documented in this encounter Care Teams Dairy Truck Driver Relationship Specialty Start Date End Date Pritesh Chu MD [address] [place] [address] PCP - General Family Medicine 04/18/24 Markus Finley MD [address] [place] [address] Consulting Physician Medical Oncology 04/18/24 documented as of this encounter
--- OUTSIDE RECORDS SUMMARY | 2024-10-26 08:04 | XMS_ITS | Encounter Summary ---
Author Organization [facility] Care Team Providers Care It Infrastructure Project Manager Name Role Phone Pritesh Chu MD Primary Care Provider [phone] Markus Finley MD Unavailable [phone] Encounter Details Date Type Department Care Team (Latest Contact Info) Description 07/23/2024 Travel Social History Tobacco Use Types Packs/Day Years Used Date Smoking Tobacco: Former Cigarettes 0.5 8.5 S tarted: 04/18/2016 Smokeless Tobacco: Never Alcohol Use Standard Drinks/Week Comments Yes 0 (1 standard drink = 0.6 oz pur e alcohol) [facility] Utilities Answer Date Recorded In the past 12 months has [employer], gas, oil, or water [employer] threatened to shut off services in your home? Patient declined 07/23/2024 Social Connection and Isolation Panel [NHANES] A nswer Date Recorded In a typical week, how many times do you talk on the phone with family, friends, or neighbors? Patient declined 07/23/2024 How often do you get togethe r with friends or relatives? Patient declined 07/23/2024 How often do you attend mu-ism or latter day serv ices? Patient declined 07/23/2024 Do you belong to any clubs o r organizations such as mu-ism groups, unions, fraternal or athletic groups, or school groups? Patient declined 07/23/2024 How often do you attend meet ings of the clubs or organizations you belong to? Patient declined 07/23/2024 Are you , , di vorced, , never , or living with a partner? Patient declined 07/23/2024 AUDIT-C Answer Date Recorded Q1: How often do you have a drink containing alc ohol? Patient declined 07/23/2024 Q2: How many drinks containi ng alcohol do you have on a typical day when you are drinking? Patient declined 07/23/2024 Q3: How often do you have si x or more drinks on one occasion? Patient declined 07/23/2024 Overall Financial Resource Strain (CARDIA) Answe r Date Recorded How hard is it for you to pa y for the very basics like food, housing, medical care, and heating? Patient declined 07/23/2024 [facility] - Occupational Stress Questionnaire Answer Date Recorded Do you feel stress - tense, restless, nervous, or anxious, or unable to sleep at night because your mind is troubled all the time - these days? Patient declined 07/23/2024 Exercise Vital Sign Answer Date Recorde d On average, how many days pe r week do you engage in moderate to strenuous exercise (like a brisk walk)? Patient declined On average, how many minutes do you engage in exercise at this level? Patient declined 07/23/2024 Hunger Vital Sign Answer Date Recorded Within [...] appointments or from getting medications? Patient declined 07/23/2024 In the past 12 months, has l ack of transportation kept you from meetings, work, or from getting things needed for daily living? Patient declined 07/23/2024 Housing Stability Vital Sign Answer Shahid e Recorded In the last 12 months, was t here a time when you were not able to pay the mortgage or rent on time? Patient declined 07/23/20 24 In the past 12 months, how m any times have you moved where you were living? 1 07/23/2024 At any time in the past 12 m [place], were you homeless or living in a intermediate (including now)? Patient declined 07/23/2024 Comments No Sex and Gender Information Value Date Recorded Sex Assigned at Female 06/20/2024 8:39 AM CDT Legal Sex Female 9:04 AM CDT Gender Identity Female 06/20/2024 8:39 AM CDT Sexual Orientation Bisexual 06/20/2024 8: 39 AM CDT documented as of this encounter Functional Status * Audit-C Score Answer Date of Assessment Author -1 07/23/2024 3:31 PM Aniceto Serna RN * Within the last year, [...] 07/23/2024 3:31 PM Mara Serna RN * Question Answer Date of Assessment [...] one occasion? Patient declined 07/23/2024 3:31 PM CDT Mara Pimentel RN documented as of this encounter Plan of Treatment Upcoming Encounters Date Type Department Care Team (Late st Contact Info) Description 11/15/2024 1:00 PM JOINT FINISHER [facility] [address] [facility] [place] [address] Markus Finley MD [address] [place] [address] 11/15/2024 2:00 PM JOINT FINISHER [facility] [address] [place] [address] Markus Finley MD [address] [place] [address] Discharge Disposition: Discharged to home or Selfcare documented as of this encounter Visit Diagnoses Not on filedocumented in this encounter Additional Health Concerns Infection Onset Date Last Indicated Resolved Time COVID - 19 07/23/2024 07/23/2024 07/23/2024 10:3 8 AM CDT C. difficile Rule-Out 07/23/2024 07/24/20242023 1:43 AM CDT documented as of this encounter Care Teams It Infrastructure Project Manager Relationship Specialty Start Date End Date Pritesh Chu MD [address] [place], [place] [id number] PCP - General Family Medicine 04/18/24 Markus Finley MD [address] [place] [address] Consulting Physician Medical Oncology 04/18/24 documented as of this encounter
--- OUTSIDE RECORDS SUMMARY | 2024-10-26 08:05 | XMS_ITS ---
Author Organization [facility] Address [address] [place] [address] Phone Care Team Providers Care Hand Packer Name Role Phone Pritesh Chu MD Primary Care Provider [phone] Markus Finley MD Unavailable [phone] Zander Cha MD Unavailable [facility] Status:Enrolled (Active) Start date:09/24/2024 Enrollment date:09/24/2024 Related social drivers of health:Intimate Partner Violence, Social Connections, Alcohol Use, Tobacco Use, Financial Resource Strain,Depression, Stress, Physical Activity, Food Insecurity, Transportation Needs, Housing Stability, Utilities Continued Care and Services Coordination
--- OUTSIDE RECORDS SUMMARY | 2024-10-26 08:05 | XMS_ITS | Encounter Summary ---
Author Organization [facility] Address [address] [facility] [place] [address] Phone Care Team Providers Care Director Of Trauma Name Role Phone Pritesh Chu MD Primary Care Provider Markus Finley MD Unavailable [phone] Encounter Details Date Type Department Care Team (Late st Contact Info) Description 04/18/2024 3:20 PM CDT Clinical Support [facility] [address] [place] [phone] Markus Finley MD [address] [place] [address] Iron deficiency anemia due to chronic blood loss (Primary Dx) Discharge Disposition: Discharged to home [...] * Interdisciplinary - Carmina Porras RN - 04/18/2024 3:20 PM CDT Pt and S.O. in exam room. at side. Port accessed by Tatum Rios RN per policy, flushed easily, small tinge of blood noted, pt repositioned and port flushed with appx 8 NS flushes without succuessful blood return for labs. Port deaccessed per policy with NS and heparin. Needle removed and bandaid placed. Labs drawn from LAC, pt tolerated well, gauze and coband placed. Left pt and S.O leftin room in stable condition with Dr. Finley. documented in this encounter Plan of Treatment Upcoming Encounters Date Type Department Care Team (Late st Contact Info) Description 11/15/2024 1:00 PM CAT SKINNER [facility] [address] [place] [address] Markus Finley MD [address] [place] [address] 11/15/2024 2:00 PM CAT SKINNER [facility] [address] [place] [address] Markus Finley MD [address] [place] [address] Discharge Disposition: Discharged to home or Selfcare documented as of this encounter Visit Diagnoses Diagnosis Iron deficiency anemia due to chronic blood loss- Primary Iron deficiency anemia secondary to blood loss (chronic) documented in this encounter Administered Medications Inactive Administered Medications - up to 3 most recent administrations Medication Order MAR Action Action Date Dose Rate Site Heparin Na (Pork) Lock Flsh PF SOLN 50 Units 50 Units, Intravenous, PRN, Starting on Tue04/18/24 at 1602, Until Tue04/18/24 at 1832, Line CareIndications:Iron deficiency anemia due to chronic blood loss Given 04/18/2024 4:15 PM CDT 50 Units documented in this encounter Care Teams Director Of Trauma Relationship Specialty Start Date End Date Pritesh Chu MD [address] [address] PCP - General Family Medicine 04/18/24 Markus Finley MD [address] [place] [address] Consulting Physician Medical Oncology 04/18/24 documented as of this encounter
--- OUTSIDE RECORDS SUMMARY | 2024-10-26 08:05 | XMS_ITS ---
Author Organization [facility] Address [address] [place] [address] Phone Care Team Providers Care Christmas Tree Farm Worker Name Role Phone Pritesh Chu MD Primary Care Provider [phone] Markus Finley MD Unavailable [phone] Zander Cha MD Unavailable Ambulatory Transitions of Care Status:Closed (Closed) Start date:07/30/2024 Enrollment date:07/31/2024 End date:08/09/2024 Close reason:Patient graduated Related social drivers of health:Intimate Partner Violence, Social Connections, Alcohol Use, Tobacco Use, Financial Resource Strain,Depression, Stress, Physical Activity, Food Insecurity, Transportation Needs, Housing Stability, Utilities Continued Care and Services Coordination
--- OUTSIDE RECORDS SUMMARY | 2024-10-26 08:05 | XMS_ITS | Encounter Summary ---
Author Organization [facility] Address [address] [place] [address] Phone Care Team Providers Care Pressfitter Name Role Phone Pritesh Chu MD Primary Care Provider Markus Finley MD Unavailable [phone] Encounter Details Date Type Department Care Team (Late st Contact Info) Description 05/18/2024 Documentation Only [facility] Oncology Services [address] [place] [id number] Markus Finley MD [address] [place] [address] Social History Tobacco Use Types Packs/Day Years [...] st Contact Info) Description 11/15/2024 1:00 PM COMPONENT LAB TECH [facility] [address] [facility] [place] [address] Markus Finley MD [address] [place] [address] 11/15/2024 2:00 PM COMPONENT LAB TECH [facility] [address] [place] [phone] Markus Finley MD [address] [place] [address] Discharge Disposition: Discharged to home or Selfcare documented as of this encounter Visit Diagnoses Not on filedocumented in this encounter Care Teams Pressfitter Relationship Specialty Start Date End Date Pritesh Chu MD [address] [place], [place] [id number] PCP - General Family Medicine 04/18/24 Markus Finley MD [address] [place] [address] Consulting Physician Medical Oncology 04/18/24 documented as of this encounter
--- OUTSIDE RECORDS SUMMARY | 2024-10-26 08:05 | XMS_ITS | Encounter Summary ---
Author Organization [facility] Address [address] [place] [address] Phone Care Team Providers Care Superintendent Distribution Name Role Phone Pritesh Chu MD Primary Care Provider [phone] Markus Finley MD Unavailable [phone] Reason for Referral * Consult, Test & Initiate Treatment (Routine) - Closed Specialty Diagnoses / Procedures Referred By Contross t Referred To Contact Diagnoses Metastatic melanoma (HCC) Markus Finley MD [address] [place] [address] Phone: tel: fax: [facility] Food Service Supervisor Services [address] [phone] Phone: tel: fax: Referral ID Status Reason Start Date Expiration Date Visits Re quested Visits Authorized [id number] Closed 05/01/2024 1 1 Scheduling Instructions Dayanara is being referred for new chemotherapy. Please contact patient for scheduling questions or concerns. Reason for Visit * Episode Based Medications (Routine) - Closed Specialty Diagnoses / Procedures Referred By Contac t Referred To Contact Diagnoses Metastatic melanoma (HCC) Markus Finley MD [address] [place] [address] Phone: tel: fax: [facility] [address] [place] [phone] Phone: tel: fax: Referral ID Status Reason Start Date Expiration Date Visits Re quested Visits Authorized [id number] Closed 04/19/2024 1 30 Encounter Details Date Type Department Care Team (Late st Contact Info) Description 05/01/2024 1:00 PM CDT Clinical Support [facility] [address] [place] [phone] [place] [address] [place] [id number] Metastatic melanoma (HCC) (Primary Dx) Discharge Disposition: [...] Sign Reading Time Taken Comments Blood Pressure 166/117 05/01/2024 1:04 PM CDT Pulse 98 05/01/2024 1:04 PM CDT Temperature 37.4 ??C (99.4 ??F) 05/01/2024 1:04 PM CD T Respiratory Rate 16 05/01/2024 1:04 PM CDT Oxygen Saturation 96% 05/01/2024 1:04 PM CDT Inhaled Oxygen Concentration - - Weight 133 kg (293 lb 4.8 oz) 05/01/2024 1:04 PM CDT Height - - Body Mass Index - - documented in this encounter Miscellaneous Notes * Interdisciplinary - Elías Petty RN - 05/01/2024 1:00 PM CDT Pt ambulated to treatment room. Vitals obtained. Port accessed x1 attempt; flushed easily with NO blood return. Ok to use port per Malia. Chemotherapy consent reviewed with pt and signature obtained. Educational materials reviewed with pt and pt verbalized understanding. All questions answered to patient's satisfaction. Reviewed dose with [facility] per pharmacy request, using flip dose for Melanoma. Chemotherapy given per MD order and pt tolerated well. Port flushed with NS and heparin per protocol and port needle removed. Port site covered with bandaid. Pt left in stable condition. documented in this encounter Plan of Treatment Upcoming Encounters Date Type Department Care Team (Late st Contact Info) Description 11/15/2024 1:00 PM STOCK ORDER LISTER [facility] [address] [place] [address] Markus Finley MD [address] [place] [address] 11/15/2024 2:00 PM STOCK ORDER LISTER [facility]ment [facility] MRI [address] [place] [address] Markus Finley MD [address] [place] [address] Discharge Disposition: Discharged to home or Selfcare Scheduled Orders Name Type Priority Associated Diagnoses Orde r Schedule CMP (COMPREHENSIVE METABOLIC PANEL) Lab STAT Metastatic melanoma (HCC) 24 Occurrences starting 05/01/2024 until 05/01/2025, 16 completed COMPLETE BLOOD COUNT (CBC) WITH DIFF Lab STAT Metastatic melanoma (HCC) 24 Occurrences starting 05/01/2024 until 05/01/2025, 8 completed THYROID STIMULATING HORMONE (TSH) Lab STAT Metastatic melanoma (HCC) 24 Occurrences starting 05/01/2024 until 05/01/2025, 6 completed Scheduled Referrals Name Type Priority Associated Diagnoses Orde r Schedule DIETARY/NUTRITION REFERRAL Outpatient Referral Routine Metastatic melanoma (HCC) Expected: 05/01/2024, Expires: 05/01/2025 documented as of this encounter Procedures Procedure Name Priority Date/Time Associated Diagnosis Comments THYROID STIMULATING HORMONE (TSH) Routine 05/21/2024 12:00 AM CDT CMP (COMPREHENSIVE METABOLIC PANEL) Routine 05/21/2024 12:00 AM CDT COMPLETE BLOOD COUNT (CBC) WITH DIFF Routine 05/21/2024 12:00 AM CDT CORTISOL STAT 05/01/2024 2:38 PM CDT Metastatic melanoma (HCC) documented in this encounter Results * THYROID STIMULATING HORMONE (TSH) (10/02/2024 3:08 PM STOCK ORDER LISTER) TSH 1.466 0.300 - 5.000 mIU/L 10/02/2024 3:59 PM STOCK ORDER LISTER [facility] Blood Sub-Q Port Venou s Access Device (Medi-Port, Implanted Port) / Unknown 10/02/2024 3:08 PM STOCK ORDER LISTER 10/02/2024 3:08 PM STOCK ORDER LISTER Markus Finley MD CHEMISTRY ORDERABLES Fin al Result [facility] [place] [address] * (ABNORMAL) CMP (COMPREHENSIVE METABOLIC PANEL) (10/02/2024 3:08 PM STOCK ORDER LISTER) SODIUM 136 136 - 145 mmol/L 10/02/2024 3:40 PM STOCK ORDER LISTER [facility] POTASSIUM 4.5 3.5 - 5.1 mmol/L 10/02/2024 3:40 PM [facility] CHLORIDE 109(H) 98 - 107 mmol/L 10/02/2024 3:40 PM [facility] CO2, VENOUS 21(L) 22 - 30 mmol/L 10/02/2024 3:40 PM [facility] ANION GAP 10.5 <18.0 mmol/L 10/02/2024 3:40 PM [facility] GLUCOSE 118(H) 70 - 99 mg/dL 10/02/2024 3:40 PM [facility] BUN 21(H) 5 - 18 mg/dL 10/02/2024 3:40 PM [facility] CREATININE, BLOOD 0.94 0.60 - 1.00 mg/dL 10/02/2024 3:40 PM [facility] BUN/CREATININE RATIO 22(H) 12 - 20 ratio 10/02/2024 3:40 PM [facility] TOTAL PROTEIN 6.2(L) 6.3 - 8.2 g/dL 10/02/2024 3:40 PM [facility] ALBUMIN 3.9 3.5 - 5.0 g/dL 10/02/2024 3:40 PM [facility] A/G RATIO 1.7 1.0 - 2.2 10/02/2024 3:40 PM [facility] CALCIUM 9.0 8.7 - 10.5 mg/dL 10/02/2024 3:40 PM [facility] T BILI 0.2 0.2 - 1.2 mg/dL 10/02/2024 3:40 PM [facility] SGOT (AST) 17 5 - 34 U/L 10/02/2024 3:40 PM [facility] SGPT (ALT) 52 0 - 55 U/L 10/02/2024 3:40 PM [facility] ALKALINE PHOSPHATASE 45 40 - 150 U/L 10/02/2024 3:40 PM [facility] IS THE PATIENT REQUIRED TO BE FASTING? No 10/02/2024 3:40 PM STOCK ORDER LISTER [facility] GFR, ESTIMATED >60 >=60 10/02/2024 3:40 PM STOCK ORDER LISTER [facility] Comment: Creatinine Clearance is the preferred criteria for selecting drug dose adjustments in renally impaired patients. ??The GFR is provided as additional pertinent clinical information. GFR is reported in mL/min/1.73 sq m. Calculation based on the Chronic Kidney Disease Epidemiology Collaboration (CKD- EPI) equation refit without adjustment for race. GFR, EST. >60 >=60 024 3:40 PM STOCK ORDER LISTER [facility] GFR, EST. NONAFRICAN >60 >=60 10/02/2024 3:40 PM STOCK ORDER LISTER [facility] Blood Sub-Q Port Venou s Access Device (Medi-Port, Implanted Port) / Unknown 10/02/2024 3:08 PM STOCK ORDER LISTER 10/02/2024 3:08 PM STOCK ORDER LISTER Markus Finley MD CHEMISTRY ORDERABLES Fin al Result Performing Organization Address City/[facility]/ZIP Co de Phone Number [facility] [address] [place] [address] * THYROID STIMULATING HORMONE (TSH) (09/25/2024 2:03 PM STOCK ORDER LISTER) TSH 2.382 0.300 - 5.000 mIU/L 09/25/2024 2:49 PM STOCK ORDER LISTER [facility] Blood Sub-Q Port Venou s Access Device (Medi-Port, Implanted Port) / Unknown 09/25/2024 2:03 PM STOCK ORDER LISTER 09/25/2024 2:03 PM STOCK ORDER LISTER Markus Finley MD CHEMISTRY ORDERABLES Fin al Result Performing Organization Address City/[facility]/ZIP Co de Phone Number [facility] [address] [place] [address] * (ABNORMAL) CMP (COMPREHENSIVE METABOLIC PANEL) (09/25/2024 2:03 PM [facility]) SODIUM 141 136 - 145 mmol/L 09/25/2024 2:32 PM [facility] POTASSIUM 4.2 3.5 - 5.1 mmol/L 09/25/2024 2:32 PM [facility] CHLORIDE 109(H) 98 - 107 mmol/L 09/25/2024 2:32 PM [facility] CO2, VENOUS 25 22 - 30 mmol/L 09/25/2024 2:32 PM [facility] ANION GAP 11.2 <18.0 mmol/L 09/25/2024 2:32 PM [facility] GLUCOSE 95 70 - 99 mg/dL 09/25/2024 2:32 PM [facility] BUN 22(H) 5 - 18 mg/dL 09/25/2024 2:32 PM [facility] CREATININE, BLOOD 0.86 0.60 - 1.00 mg/dL 09/25/2024 2:32 PM [facility] BUN/CREATININE RATIO 26(H) 12 - 20 ratio 09/25/2024 2:32 PM [facility] TOTAL PROTEIN 6.3 6.3 - 8.2 g/dL 09/25/2024 2:32 PM [facility] ALBUMIN 4.0 3.5 - 5.0 g/dL 09/25/2024 2:32 PM [facility] A/G RATIO 1.7 1.0 - 2.2 09/25/2024 2:32 PM [facility] CALCIUM 9.0 8.7 - 10.5 mg/dL 09/25/2024 2:32 PM [facility] T BILI 0.5 0.2 - 1.2 mg/dL 09/25/2024 2:32 PM [facility] SGOT (AST) 20 5 - 34 U/L 09/25/2024 2:32 PM [facility] SGPT (ALT) 45 0 - 55 U/L 09/25/2024 2:32 PM STOCK ORDER LISTER [facility] ALKALINE PHOSPHATASE 39(L) 40 - 150 U/L 09/25/2024 2:32 PM STOCK ORDER LISTER [facility] IS THE PATIENT REQUIRED TO BE FASTING? No 09/25/2024 2:32 PM STOCK ORDER LISTER [facility] GFR, ESTIMATED >60 >=60 09/25/2024 2:32 PM STOCK ORDER LISTER [facility] Comment: Creatinine Clearance is the preferred criteria for selecting drug dose adjustments in renally impaired patients. ??The GFR is provided as additional pertinent clinical information. GFR is reported in mL/min/1.73 sq m. Calculation based on the Chronic Kidney Disease Epidemiology Collaboration (CKD- EPI) equation refit without adjustment for race. GFR, EST. >60 >=60 024 2:32 PM STOCK ORDER LISTER [facility] GFR, EST. NONAFRICAN >60 >=60 09/25/2024 2:32 PM STOCK ORDER LISTER [facility] Blood Sub-Q Port Venou s Access Device (Medi-Port, Implanted Port) / Unknown 09/25/2024 2:03 PM STOCK ORDER LISTER 09/25/2024 2:03 PM STOCK ORDER LISTER Markus Finley MD CHEMISTRY ORDERABLES Fin al Result [facility] [address] [place] [address] * THYROID STIMULATING HORMONE (TSH) (09/18/2024 2:21 PM STOCK ORDER LISTER) TSH 1.270 0.300 - 5.000 mIU/L 09/18/2024 3:31 PM STOCK ORDER LISTER [facility] Blood Sub-Q Port Venou s Access Device (Medi-Port, Implanted Port) / Unknown 09/18/2024 2:21 PM STOCK ORDER LISTER 09/18/2024 2:21 PM STOCK ORDER LISTER Markus Finley MD CHEMISTRY ORDERABLES Jacob al Result [facility] [address] [place] [address] * (ABNORMAL) CMP (COMPREHENSIVE METABOLIC PANEL) (09/18/2024 2:21 PM STOCK ORDER LISTER) SODIUM 140 136 - 145 mmol/L 09/18/2024 2:50 PM STOCK ORDER LISTER [facility] POTASSIUM 4.2 3.5 - 5.1 mmol/L 09/18/2024 2:50 PM STOCK ORDER LISTER [facility] CHLORIDE 107 98 - 107 mmol/L 09/18/2024 2:50 PM [facility] CO2, VENOUS 25 22 - 30 mmol/L 09/18/2024 2:50 PM STOCK ORDER LISTER [facility] ANION GAP 12.2 <18.0 mmol/L 09/18/2024 2:50 PM STOCK ORDER LISTER [facility] GLUCOSE 114(H) 70 - 99 mg/dL 09/18/2024 2:50 PM STOCK ORDER LISTER [facility] BUN 24(H) 5 - 18 mg/dL 09/18/2024 2:50 PM [facility] CREATININE, BLOOD 0.78 0.60 - 1.00 mg/dL 09/18/2024 2:50 PM [facility] BUN/CREATININE RATIO 31(H) 12 - 20 ratio 09/18/2024 2:50 PM [facility] TOTAL PROTEIN 5.9(L) 6.3 - 8.2 g/dL 09/18/2024 2:50 PM STOCK ORDER LISTER [facility] ALBUMIN 3.8 3.5 - 5.0 g/dL 09/18/2024 2:50 PM [facility] A/G RATIO 1.8 1.0 - 2.2 09/18/2024 2:50 PM STOCK ORDER LISTER [facility] CALCIUM 9.0 8.7 - 10.5 mg/dL 09/18/2024 2:50 PM [facility] T BILI 0.4 0.2 - 1.2 mg/dL 09/18/2024 2:50 PM STOCK ORDER LISTER [facility] SGOT (AST) 11 5 - 34 U/L 09/18/2024 2:50 PM STOCK ORDER LISTER [facility] SGPT (ALT) 45 0 - 55 U/L 09/18/2024 2:50 PM STOCK ORDER LISTER [facility] ALKALINE PHOSPHATASE 45 40 - 150 U/L 09/18/2024 2:50 PM STOCK ORDER LISTER [facility] IS THE PATIENT REQUIRED TO BE FASTING? No 09/18/2024 2:50 PM STOCK ORDER LISTER [facility] GFR, ESTIMATED >60 >=60 09/18/2024 2:50 PM STOCK ORDER LISTER [facility] Comment: Creatinine Clearance is the preferred criteria for selecting drug dose adjustments in renally impaired patients. ??The GFR is provided as additional pertinent clinical information. GFR is reported in mL/min/1.73 sq m. Calculation based on the Chronic Kidney Disease Epidemiology Collaboration (CKD- EPI) equation refit without adjustment for race. GFR, EST. >60 >=60 024 2:50 PM STOCK ORDER LISTER [facility] GFR, EST. NONAFRICAN >60 >=60 09/18/2024 2:50 PM STOCK ORDER LISTER [facility] Blood Sub-Q Port Venou s Access Device (Medi-Port, Implanted Port) / Unknown 09/18/2024 2:21 PM STOCK ORDER LISTER 09/18/2024 2:21 PM STOCK ORDER LISTER Markus Finley MD CHEMISTRY ORDERABLES Fin al Result [facility] [address] [place] [address] * (ABNORMAL) CMP (COMPREHENSIVE METABOLIC PANEL) (09/11/2024 1:32 PM STOCK ORDER LISTER) SODIUM 139 136 - 145 mmol/L 09/11/2024 2:07 PM STOCK ORDER LISTER [facility] POTASSIUM 3.8 3.5 - 5.1 mmol/L 09/11/2024 2:07 PM [facility] CHLORIDE 107 98 - 107 mmol/L 09/11/2024 2:07 PM [facility] CO2, VENOUS 22 22 - 30 mmol/L 09/11/2024 2:07 PM [facility] ANION GAP 13.8 <18.0 mmol/L 09/11/2024 2:07 PM [facility] GLUCOSE 145(H) 70 - 99 mg/dL 09/11/2024 2:07 PM [facility] BUN 25(H) 5 - 18 mg/dL 09/11/2024 2:07 PM [facility] CREATININE, BLOOD 0.87 0.60 - 1.00 mg/dL 09/11/2024 2:07 PM [facility] BUN/CREATININE RATIO 29(H) 12 - 20 ratio 09/11/2024 2:07 PM [facility] TOTAL PROTEIN 6.2(L) 6.3 - 8.2 g/dL 09/11/2024 2:07 PM [facility] ALBUMIN 4.0 3.5 - 5.0 g/dL 09/11/2024 2:07 PM [facility] A/G RATIO 1.8 1.0 - 2.2 09/11/2024 2:07 PM [facility] CALCIUM 8.9 8.7 - 10.5 mg/dL 09/11/2024 2:07 PM [facility] T BILI 0.5 0.2 - 1.2 mg/dL 09/11/2024 2:07 PM [facility] SGOT (AST) 13 5 - 34 U/L 09/11/2024 2:07 PM [facility] SGPT (ALT) 56(H) 0 - 55 U/L 09/11/2024 2:07 PM [facility] ALKALINE PHOSPHATASE 58 40 - 150 U/L 09/11/2024 2:07 PM [facility] IS THE PATIENT REQUIRED TO BE FASTING? No 09/11/2024 2:07 PM STOCK ORDER LISTER [facility] GFR, ESTIMATED >60 >=60 09/11/2024 2:07 PM STOCK ORDER LISTER [facility] Comment: Creatinine Clearance is the preferred criteria for selecting drug dose adjustments in renally impaired patients. ??The GFR is provided as additional pertinent clinical information. GFR is reported in mL/min/1.73 sq m. Calculation based on the Chronic Kidney Disease Epidemiology Collaboration (CKD- EPI) equation refit without adjustment for race. GFR, EST. >60 >=60 024 2:07 PM STOCK ORDER LISTER [facility] GFR, EST. NONAFRICAN >60 >=60 09/11/2024 2:07 PM STOCK ORDER LISTER [facility] Blood Sub-Q Port Venou s Access Device (Medi-Port, Implanted Port) / Unknown 09/11/2024 1:32 PM STOCK ORDER LISTER 09/11/2024 1:33 PM STOCK ORDER LISTER Markus Finley MD CHEMISTRY ORDERABLES Fin al Result Performing Organization Address City/[facility]/ZIP Co de Phone Number [facility] [place] [address] * THYROID STIMULATING HORMONE (TSH) (09/07/2024 11:55 AM CDT) TSH 1.777 0.300 - 5.000 mIU/L 09/07/2024 12:42 PM CDT [facility] Blood Sub-Q Port Venou s Access Device (Medi-Port, Implanted Port) / Unknown 09/07/2024 11:55 AM CDT 09/07/2024 11:55 AM CDT Markus Finley MD CHEMISTRY ORDERABLES Fin al Result [facility] [address] [place] [address] * (ABNORMAL) CMP (COMPREHENSIVE METABOLIC PANEL) (09/07/2024 11:55 AM CDT) SODIUM 139 136 - 145 mmol/L 09/07/2024 12:24 PM CDT [facility] POTASSIUM 4.7 3.5 - 5.1 mmol/L 09/07/2024 12:24 PM CDT [facility] CHLORIDE 105 98 - 107 mmol/L 09/07/2024 12:24 PM CDT [facility] CO2, VENOUS 26 22 - 30 mmol/L 09/07/2024 12:24 PM CDT [facility] ANION GAP 12.7 <18.0 mmol/L 09/07/2024 12:24 PM CDT [facility] GLUCOSE 102(H) 70 - 99 mg/dL 09/07/2024 12:24 PM CDT [facility] BUN 20(H) 5 - 18 mg/dL 09/07/2024 12:24 PM CDT [facility] CREATININE, BLOOD 0.82 0.60 - 1.00 mg/dL 09/07/2024 12:24 PM CDT [facility] BUN/CREATININE RATIO 24(H) 12 - 20 ratio 09/07/2024 12:24 PM CDT [facility] TOTAL PROTEIN 6.1(L) 6.3 - 8.2 g/dL 09/07/2024 12:24 PM CDT [facility] ALBUMIN 3.9 3.5 - 5.0 g/dL 09/07/2024 12:24 PM CDT [facility] A/G RATIO 1.8 1.0 - 2.2 09/07/2024 12:24 PM CDT [facility] CALCIUM 9.2 8.7 - 10.5 mg/dL 09/07/2024 12:24 PM CDT [facility] T BILI 0.6 0.2 - 1.2 mg/dL 09/07/2024 12:24 PM CDT [facility] SGOT (AST) 12 5 - 34 U/L 09/07/2024 12:24 PM CDT [facility] SGPT (ALT) 53 0 - 55 U/L 09/07/2024 12:24 PM CDT [facility] ALKALINE PHOSPHATASE 52 40 - 150 U/L 09/07/2024 12:24 PM CDT [facility] IS THE PATIENT REQUIRED TO BE FASTING? No 09/07/2024 12:24 PM CDT [facility] GFR, ESTIMATED >60 >=60 09/07/2024 12:24 PM CDT [facility] Comment: Creatinine Clearance is the preferred criteria for selecting drug dose adjustments in renally impaired patients. ??The GFR is provided as additional pertinent clinical information. GFR is reported in mL/min/1.73 sq m. Calculation based on the Chronic Kidney Disease Epidemiology Collaboration (CKD- EPI) equation refit without adjustment for race. GFR, EST. >60 >=60 024 12:24 PM CDT [facility] GFR, EST. NONAFRICAN >60 >=60 09/07/2024 12:24 PM CDT [facility] Blood Sub-Q Port Venou s Access Device (Medi-Port, Implanted Port) / Unknown 09/07/2024 11:55 AM CDT 09/07/2024 11:55 AM CDT Markus Finley MD CHEMISTRY ORDERABLES Fin al Result [facility] [address] [place] [address] * (ABNORMAL) CMP (COMPREHENSIVE METABOLIC PANEL) (08/24/2024 12:05 PM CDT) SODIUM 138 136 - 145 mmol/L 08/24/2024 12:43 PM CDT [facility] POTASSIUM 3.5 3.5 - 5.1 mmol/L 08/24/2024 12:43 PM CDT [facility] CHLORIDE 106 98 - 107 mmol/L 08/24/2024 12:43 PM CDT [facility] CO2, VENOUS 22 22 - 30 mmol/L 08/24/2024 12:43 PM CDT [facility] ANION GAP 13.5 <18.0 mmol/L 08/24/2024 12:43 PM CDT [facility] GLUCOSE 98 70 - 99 mg/dL 08/24/2024 12:43 PM CDT [facility] BUN 17 5 - 18 mg/dL 08/24/2024 12:43 PM CDT [facility] CREATININE, BLOOD 0.95 0.60 - 1.00 mg/dL 08/24/2024 12:43 PM CDT [facility] BUN/CREATININE RATIO 18 12 - 20 ratio 08/24/2024 12:43 PM CDT [facility] TOTAL PROTEIN 5.6(L) 6.3 - 8.2 g/dL 08/24/2024 12:43 PM CDT [facility] ALBUMIN 3.5 3.5 - 5.0 g/dL 08/24/2024 12:43 PM CDT [facility] A/G RATIO 1.7 1.0 - 2.2 08/24/2024 12:43 PM CDT [facility] CALCIUM 8.7 8.7 - 10.5 mg/dL 08/24/2024 12:43 PM CDT [facility] T BILI 0.5 0.2 - 1.2 mg/dL 08/24/2024 12:43 PM CDT [facility] SGOT (AST) 27 5 - 34 U/L 08/24/2024 12:43 PM CDT [facility] SGPT (ALT) 107(H) 0 - 55 U/L 08/24/2024 12:43 PM CDT [facility] ALKALINE PHOSPHATASE 56 40 - 150 U/L 08/24/2024 12:43 PM CDT [facility] IS THE PATIENT REQUIRED TO BE FASTING? No 08/24/2024 12:43 PM CDT [facility] GFR, ESTIMATED >60 >=60 08/24/2024 12:43 PM CDT [facility] Comment: Creatinine Clearance is the preferred criteria for selecting drug dose adjustments in renally impaired patients. ??The GFR is provided as additional pertinent clinical information. GFR is reported in mL/min/1.73 sq m. Calculation based on the Chronic Kidney Disease Epidemiology Collaboration (CKD- EPI) equation refit without adjustment for race. GFR, EST. >60 >=60 024 12:43 PM CDT [facility] GFR, EST. NONAFRICAN >60 >=60 08/24/2024 12:43 PM CDT [facility] Blood Venipuncture / Unknown 08/24/2024 12:05 PM CDT 08/24/2024 12:05 PM CDT Markus Finley MD CHEMISTRY ORDERABLES Fin al Result [facility] [address] [place] [address] * (ABNORMAL) CMP (COMPREHENSIVE METABOLIC PANEL) (08/20/2024 2:00 PM CDT) SODIUM 133(L) 136 - 145 mmol/L 08/20/2024 2:59 PM CDT [facility] POTASSIUM 4.3 3.5 - 5.1 mmol/L 08/20/2024 2:59 PM CDT [facility] CHLORIDE 106 98 - 107 mmol/L 08/20/2024 2:59 PM CDT [facility] CO2, VENOUS 18(L) 22 - 30 mmol/L 08/20/2024 2:59 PM CDT [facility] ANION GAP 13.3 <18.0 mmol/L 08/20/2024 2:59 PM CDT [facility] GLUCOSE 121(H) 70 - 99 mg/dL 08/20/2024 2:59 PM CDT [facility] BUN 18 5 - 18 mg/dL 08/20/2024 2:59 PM CDT [facility] CREATININE, BLOOD 0.87 0.60 - 1.00 mg/dL 08/20/2024 2:59 PM CDT [facility] BUN/CREATININE RATIO 21(H) 12 - 20 ratio 08/20/2024 2:59 PM CDT [facility] TOTAL PROTEIN 6.0(L) 6.3 - 8.2 g/dL 08/20/2024 2:59 PM CDT [facility] ALBUMIN 3.7 3.5 - 5.0 g/dL 08/20/2024 2:59 PM CDT [facility] A/G RATIO 1.6 1.0 - 2.2 08/20/2024 2:59 PM CDT [facility] CALCIUM 8.9 8.7 - 10.5 mg/dL 08/20/2024 2:59 PM CDT [facility] T BILI 0.4 0.2 - 1.2 mg/dL 08/20/2024 2:59 PM CDT [facility] SGOT (AST) 13 5 - 34 U/L 08/20/2024 2:59 PM CDT [facility] SGPT (ALT) 43 0 - 55 U/L 08/20/2024 2:59 PM CDT [facility] ALKALINE PHOSPHATASE 64 40 - 150 U/L 08/20/2024 2:59 PM CDT [facility] IS THE PATIENT REQUIRED TO BE FASTING? No 08/20/2024 2:59 PM CDT [facility] GFR, ESTIMATED >60 >=60 08/20/2024 2:59 PM CDT [facility] Comment: Creatinine Clearance is the preferred criteria for selecting drug dose adjustments in renally impaired patients. ??The GFR is provided as additional pertinent clinical information. GFR is reported in mL/min/1.73 sq m. Calculation based on the Chronic Kidney Disease Epidemiology Collaboration (CKD- EPI) equation refit without adjustment for race. GFR, EST. >60 >=60 024 2:59 PM CDT [facility] GFR, EST. NONAFRICAN >60 >=60 08/20/2024 2:59 PM CDT [facility] Blood Venipuncture / Unknown 08/20/2024 2:00 PM CDT 08/20/2024 2:02 PM CDT us Markus Finley MD CHEMISTRY ORDERABLES [facility] al Result [facility] [address] [place] [address] * (ABNORMAL) CMP (COMPREHENSIVE METABOLIC PANEL) (08/15/2024 11:35 AM CDT) SODIUM 132(L) 136 - 145 mmol/L 08/15/2024 12:21 PM CDT [facility] POTASSIUM 4.0 3.5 - 5.1 mmol/L 08/15/2024 12:21 PM CDT [facility] CHLORIDE 100 98 - 107 mmol/L 08/15/2024 12:21 PM CDT [facility] CO2, VENOUS 25 22 - 30 mmol/L 08/15/2024 12:21 PM CDT [facility] ANION GAP 11.0 <18.0 mmol/L 08/15/2024 12:21 PM CDT [facility] GLUCOSE 87 70 - 99 mg/dL 08/15/2024 12:21 PM CDT [facility] BUN 24(H) 5 - 18 mg/dL 08/15/2024 12:21 PM CDT [facility] CREATININE, BLOOD 0.91 0.60 - 1.00 mg/dL 08/15/2024 12:21 PM CDT [facility] BUN/CREATININE RATIO 26(H) 12 - 20 ratio 08/15/2024 12:21 PM CDT [facility] TOTAL PROTEIN 6.2(L) 6.3 - 8.2 g/dL 08/15/2024 12:21 PM CDT [facility] ALBUMIN 3.7 3.5 - 5.0 g/dL 08/15/2024 12:21 PM CDT [facility] A/G RATIO 1.5 1.0 - 2.2 08/15/2024 12:21 PM CDT [facility] CALCIUM 8.8 8.7 - 10.5 mg/dL 08/15/2024 12:21 PM CDT [facility] T BILI 0.9 0.2 - 1.2 mg/dL 08/15/2024 12:21 PM CDT [facility] SGOT (AST) 21 5 - 34 U/L 08/15/2024 12:21 PM T [facility] SGPT (ALT) 69(H) 0 - 55 U/L 08/15/2024 12:21 PM T [facility] ALKALINE PHOSPHATASE 65 40 - 150 U/L 08/15/2024 12:21 PM T [facility] IS THE PATIENT REQUIRED TO BE FASTING? No 08/15/2024 12:21 PM CDT [facility] GFR, ESTIMATED >60 >=60 08/15/2024 12:21 PM T [facility] Comment: Creatinine Clearance is the preferred criteria for selecting drug dose adjustments in renally impaired patients. ??The GFR is provided as additional pertinent clinical information. GFR is reported in mL/min/1.73 sq m. Calculation based on the Chronic Kidney Disease Epidemiology Collaboration (CKD- EPI) equation refit without adjustment for race. GFR, EST. >60 >=60 024 12:21 PM CDT [facility] GFR, EST. NONAFRICAN >60 >=60 08/15/2024 12:21 PM T [facility] Blood Sub-Q Port Venou s Access Device (Medi-Port, Implanted Port) / Unknown 08/15/2024 11:35 AM CDT 08/15/2024 11:35 AM CDT us Markus Finley MD CHEMISTRY ORDERABLES Fin al Result [facility] [address] [place] [address] * (ABNORMAL) CMP (COMPREHENSIVE METABOLIC PANEL) (08/13/2024 11:39 AM CDT) SODIUM 132(L) 136 - 145 mmol/L 08/13/2024 12:47 PM CDT [facility] POTASSIUM 3.8 3.5 - 5.1 mmol/L 08/13/2024 12:47 PM CDT [facility] CHLORIDE 99 98 - 107 mmol/L 08/13/2024 12:47 PM CDT [facility] CO2, VENOUS 26 22 - 30 mmol/L 08/13/2024 12:47 PM CDT [facility] ANION GAP 10.8 <18.0 mmol/L 08/13/2024 12:47 PM CDT [facility] GLUCOSE 127(H) 70 - 99 mg/dL 08/13/2024 12:47 PM CDT [facility] BUN 16 5 - 18 mg/dL 08/13/2024 12:47 PM CDT [facility] CREATININE, BLOOD 0.88 0.60 - 1.00 mg/dL 08/13/2024 12:47 PM CDT [facility] BUN/CREATININE RATIO 18 12 - 20 ratio 08/13/2024 12:47 PM CDT [facility] TOTAL PROTEIN 6.2(L) 6.3 - 8.2 g/dL 08/13/2024 12:47 PM CDT [facility] ALBUMIN 3.7 3.5 - 5.0 g/dL 08/13/2024 12:47 PM CDT [facility] A/G RATIO 1.5 1.0 - 2.2 08/13/2024 12:47 PM CDT [facility] CALCIUM 8.9 8.7 - 10.5 mg/dL 08/13/2024 12:47 PM CDT [facility] T BILI 0.7 0.2 - 1.2 mg/dL 08/13/2024 12:47 PM CDT [facility] SGOT (AST) 17 5 - 34 U/L 08/13/2024 12:47 PM CDT [facility] SGPT (ALT) 62(H) 0 - 55 U/L 08/13/2024 12:47 PM CDT [facility] ALKALINE PHOSPHATASE 75 40 - 150 U/L 08/13/2024 12:47 PM CDT [facility] IS THE PATIENT REQUIRED TO BE FASTING? No 08/13/2024 12:47 PM CDT [facility] GFR, ESTIMATED >60 >=60 08/13/2024 12:47 PM CDT [facility] Comment: Creatinine Clearance is the preferred criteria for selecting drug dose adjustments in renally impaired patients. ??The GFR is provided as additional pertinent clinical information. GFR is reported in mL/min/1.73 sq m. Calculation based on the Chronic Kidney Disease Epidemiology Collaboration (CKD- EPI) equation refit without adjustment for race. GFR, EST. >60 >=60 024 12:47 PM CDT [facility] GFR, EST. NONAFRICAN >60 >=60 08/13/2024 12:47 PM CDT [facility] Blood Sub-Q Port Venou s Access Device (Medi-Port, Implanted Port) / Unknown 08/13/2024 11:39 AM CDT 08/13/2024 11:39 AM CDT us Markus Finley MD CHEMISTRY ORDERABLES Fin al Result [facility] [address] [place] [address] * (ABNORMAL) CMP (COMPREHENSIVE METABOLIC PANEL) (08/08/2024 12:00 PM CDT) SODIUM 133(L) 136 - 145 mmol/L 08/08/2024 12:40 PM CDT [facility] POTASSIUM 3.6 3.5 - 5.1 mmol/L 08/08/2024 12:40 PM CDT [facility] CHLORIDE 108(H) 98 - 107 mmol/L 08/08/2024 12:40 PM CDT [facility] CO2, VENOUS 20(L) 22 - 30 mmol/L 08/08/2024 12:40 PM CDT [facility] ANION GAP 8.6 <18.0 mmol/L 08/08/2024 12:40 PM T [facility] GLUCOSE 143(H) 70 - 99 mg/dL 08/08/2024 12:40 PM T [facility] BUN 12 5 - 18 mg/dL 08/08/2024 12:40 PM [facility] CREATININE, BLOOD 1.00 0.60 - 1.00 mg/dL 08/08/2024 12:40 PM T [facility] BUN/CREATININE RATIO 12 12 - 20 ratio 08/08/2024 12:40 PM [facility] TOTAL PROTEIN 6.0(L) 6.3 - 8.2 g/dL 08/08/2024 12:40 PM [facility] ALBUMIN 3.4(L) 3.5 - 5.0 g/dL 08/08/2024 12:40 PM T [facility] A/G RATIO 1.3 1.0 - 2.2 08/08/2024 12:40 PM T [facility] CALCIUM 8.8 8.7 - 10.5 mg/dL 08/08/2024 12:40 PM T [facility] T BILI 0.5 0.2 - 1.2 mg/dL 08/08/2024 12:40 PM T [facility] SGOT (AST) 15 5 - 34 U/L 08/08/2024 12:40 PM T [facility] SGPT (ALT) 58(H) 0 - 55 U/L 08/08/2024 12:40 PM CDT [facility] ALKALINE PHOSPHATASE 71 40 - 150 U/L 08/08/2024 12:40 PM CDT [facility] IS THE PATIENT REQUIRED TO BE FASTING? No 08/08/2024 12:40 PM CDT [facility] GFR, ESTIMATED >60 >=60 08/08/2024 12:40 PM CDT [facility] Comment: Creatinine Clearance is the preferred criteria for selecting drug dose adjustments in renally impaired patients. ??The GFR is provided as additional pertinent clinical information. GFR is reported in mL/min/1.73 sq m. Calculation based on the Chronic Kidney Disease Epidemiology Collaboration (CKD- EPI) equation refit without adjustment for race. GFR, EST. >60 >=60 12:40 PM CDT [facility] GFR, EST. NONAFRICAN >60 >=60 08/08/2024 12:40 PM CDT [facility] Blood Sub-Q Port Venou s Access Device (Medi-Port, Implanted Port) / Unknown 08/08/2024 12:00 PM CDT 08/08/2024 12:00 PM CDT Markus Finley MD CHEMISTRY ORDERABLES Fin al Result [facility] [address] [place] [address] * (ABNORMAL) THYROID STIMULATING HORMONE (TSH) (08/01/2024 11:05 AM CDT) TSH 114.336(H) 0.300 - 5.000 mIU/L 08/01/2024 12:49 PM CDT [facility] Blood Venipuncture / Unknown 08/01/2024 11:05 AM CDT 08/01/2024 11:05 AM CDT Markus Finley MD CHEMISTRY ORDERABLES Fin al Result [facility] [address] [place] [address] * (ABNORMAL) CMP (COMPREHENSIVE METABOLIC PANEL) (08/01/2024 11:05 AM CDT) SODIUM 127(L) 136 - 145 mmol/L 08/01/2024 12:10 PM CDT [facility] POTASSIUM 3.3(L) 3.5 - 5.1 mmol/L 08/01/2024 12:10 PM CDT [facility] CHLORIDE 91(L) 98 - 107 mmol/L 08/01/2024 12:10 PM CDT [facility] CO2, VENOUS 15(L) 22 - 30 mmol/L 08/01/2024 12:10 PM CDT [facility] ANION GAP 24.3(H) <18.0 mmol/L 08/01/2024 12:10 PM CDT [facility] GLUCOSE 157(H) 70 - 99 mg/dL 08/01/2024 12:10 PM CDT [facility] BUN 29(H) 5 - 18 mg/dL 08/01/2024 12:10 PM CDT [facility] CREATININE, BLOOD 4.24(H) 0.60 - 1.00 mg/dL 08/01/2024 12:10 PM CDT [facility] BUN/CREATININE RATIO 7(L) 12 - 20 ratio 08/01/2024 12:10 PM CDT [facility] TOTAL PROTEIN 9.0(H) 6.3 - 8.2 g/dL 08/01/2024 12:10 PM CDT [facility] ALBUMIN 4.7 3.5 - 5.0 g/dL 08/01/2024 12:10 PM CDT [facility] A/G RATIO 1.1 1.0 - 2.2 08/01/2024 12:10 PM CDT [facility] CALCIUM 10.6(H) 8.7 - 10.5 mg/dL 08/01/2024 12:10 PM CDT [facility] T BILI 0.7 0.2 - 1.2 mg/dL 08/01/2024 12:10 PM CDT [facility] SGOT (AST) 22 5 - 34 U/L 08/01/2024 12:10 PM CDT [facility] SGPT (ALT) 53 0 - 55 U/L 08/01/2024 12:10 PM CDT [facility] ALKALINE PHOSPHATASE 85 40 - 150 U/L 08/01/2024 12:10 PM CDT [facility] IS THE PATIENT REQUIRED TO BE FASTING? No 08/01/2024 12:10 PM CDT [facility] GFR, ESTIMATED 14(L) >=60 08/01/2024 12:10 PM CDT [facility] Comment: Creatinine Clearance is the preferred criteria for selecting drug dose adjustments in renally impaired patients. ??The GFR is provided as additional pertinent clinical information. GFR is reported in mL/min/1.73 sq m. Calculation based on the Chronic Kidney Disease Epidemiology Collaboration (CKD- EPI) equation refit without adjustment for race. GFR, EST. 16(L) >=60 08/01/ 024 12:10 PM CDT [facility] GFR, EST. NONAFRICAN 13(L) >=60 08/01/2024 12:10 PM CDT [facility] Blood Venipuncture / Unknown 08/01/2024 11:05 AM CDT 08/01/2024 11:05 AM CDT us Markus Finley MD CHEMISTRY ORDERABLES Fin al Result [facility] [address] [place] [address] * (ABNORMAL) THYROID STIMULATING HORMONE (TSH) (07/25/2024 11:02 AM CDT) TSH 135.164(H) 0.300 - 5.000 mIU/L 07/25/2024 12:22 PM CDT [facility] Blood Sub-Q Port Venou s Access Device (Medi-Port, Implanted Port) / Unknown 07/25/2024 11:02 AM CDT 07/25/2024 11:02 AM CDT Markus Finley MD CHEMISTRY ORDERABLES Fin al Result [facility] [address] [place] [address] * (ABNORMAL) CMP (COMPREHENSIVE METABOLIC PANEL) (07/25/2024 11:02 AM CDT) Pathologist [facility] SODIUM 134(L) 136 - 145 mmol/L 07/25/2024 11:37 AM CDT [facility] POTASSIUM 2.5(LL) 3.5 - 5.1 mmol/L 07/25/2024 11:37 AM CDT [facility] CHLORIDE 93(L) 98 - 107 mmol/L 07/25/2024 11:37 AM CDT [facility] CO2, VENOUS 22 22 - 30 mmol/L 07/25/2024 11:37 AM CDT [facility] ANION GAP 21.5(H) <18.0 mmol/L 07/25/2024 11:37 AM CDT [facility] GLUCOSE 153(H) 70 - 99 mg/dL 07/25/2024 11:37 AM CDT [facility] BUN 30(H) 5 - 18 mg/dL 07/25/2024 11:37 AM CDT [facility] CREATININE, BLOOD 3.31(H) 0.60 - 1.00 mg/dL 07/25/2024 11:37 AM CDT [facility] BUN/CREATININE RATIO 9(L) 12 - 20 ratio 07/25/2024 11:37 AM CDT [facility] TOTAL PROTEIN 8.4(H) 6.3 - 8.2 g/dL 07/25/2024 11:37 AM [facility] ALBUMIN 4.5 3.5 - 5.0 g/dL 07/25/2024 11:37 AM [facility] A/G RATIO 1.2 1.0 - 2.2 07/25/2024 11:37 AM [facility] CALCIUM 10.2 8.7 - 10.5 mg/dL 07/25/2024 11:37 AM [facility] T BILI 0.9 0.2 - 1.2 mg/dL 07/25/2024 11:37 AM [facility] SGOT (AST) 14 5 - 34 U/L 07/25/2024 11:37 AM [facility] SGPT (ALT) 45 0 - 55 U/L 07/25/2024 11:37 AM [facility] ALKALINE PHOSPHATASE 90 40 - 150 U/L 07/25/2024 11:37 AM [facility] IS THE PATIENT REQUIRED TO BE FASTING? No 07/25/2024 11:37 AM [facility] GFR, ESTIMATED 19(L) >=60 07/25/2024 11:37 AM [facility] Comment: Creatinine Clearance is the preferred criteria for selecting drug dose adjustments in renally impaired patients. ??The GFR is provided as additional pertinent clinical information. GFR is reported in mL/min/1.73 sq m. Calculation based on the Chronic Kidney Disease Epidemiology Collaboration (CKD- EPI) equation refit without adjustment for race. GFR, EST. 21(L) >=60 024 11:37 AM [facility] GFR, EST. NONAFRICAN 17(L) >=60 07/25/2024 11:37 AM [facility] Blood Sub-Q Port Venou s Access Device (Medi-Port, Implanted Port) / Unknown 07/25/2024 11:02 AM CDT 07/25/2024 11:02 AM CDT us Markus Finley MD CHEMISTRY ORDERABLES Fin al Result [facility] [address] [place] [address] * (ABNORMAL) CMP (COMPREHENSIVE METABOLIC PANEL) (07/10/2024 1:28 PM CDT) Pathologist [facility] SODIUM 133(L) 136 - 145 mmol/L 07/10/2024 1:53 PM CDT [facility] POTASSIUM 3.9 3.5 - 5.1 mmol/L 07/10/2024 1:53 PM CDT [facility] CHLORIDE 109(H) 98 - 107 mmol/L 07/10/2024 1:53 PM CDT [facility] CO2, VENOUS 18(L) 22 - 30 mmol/L 07/10/2024 1:53 PM CDT [facility] ANION GAP 9.9 <18.0 mmol/L 07/10/2024 1:53 PM CDT [facility] GLUCOSE 143(H) 70 - 99 mg/dL 07/10/2024 1:53 PM CDT [facility] BUN 4(L) 5 - 18 mg/dL 07/10/2024 1:53 PM CDT [facility] CREATININE, BLOOD 0.85 0.60 - 1.00 mg/dL 07/10/2024 1:53 PM CDT [facility] BUN/CREATININE RATIO 5(L) 12 - 20 ratio 07/10/2024 1:53 PM CDT [facility] TOTAL PROTEIN 5.8(L) 6.3 - 8.2 g/dL 07/10/2024 1:53 PM CDT [facility] ALBUMIN 3.3(L) 3.5 - 5.0 g/dL 07/10/2024 1:53 PM CDT [facility] A/G RATIO 1.3 1.0 - 2.2 07/10/2024 1:53 PM CDT [facility] CALCIUM 8.6(L) 8.7 - 10.5 mg/dL 07/10/2024 1:53 PM CDT [facility] T BILI 0.4 0.2 - 1.2 mg/dL 07/10/2024 1:53 PM CDT [facility] SGOT (AST) 20 5 - 34 U/L 07/10/2024 1:53 PM CDT [facility] SGPT (ALT) 44 0 - 55 U/L 07/10/2024 1:53 PM CDT [facility] ALKALINE PHOSPHATASE 74 40 - 150 U/L 07/10/2024 1:53 PM CDT [facility] IS THE PATIENT REQUIRED TO BE FASTING? No 07/10/2024 1:53 PM CDT [facility] GFR, ESTIMATED >60 >=60 07/10/2024 1:53 PM CDT [facility] Comment: Creatinine Clearance is the preferred criteria for selecting drug dose adjustments in renally impaired patients. ??The GFR is provided as additional pertinent clinical information. GFR is reported in mL/min/1.73 sq m. Calculation based on the Chronic Kidney Disease Epidemiology Collaboration (CKD- EPI) equation refit without adjustment for race. GFR, EST. >60 >=60 024 1:53 PM CDT [facility] GFR, EST. NONAFRICAN >60 >=60 07/10/2024 1:53 PM CDT [facility] Blood Sub-Q Port Venou s Access Device (Medi-Port, Implanted Port) / Unknown 07/10/2024 1:28 PM CDT 07/10/2024 1:28 PM CDT us Markus Finley MD CHEMISTRY ORDERABLES Fin al Result [facility] [address] [place] [address] * (ABNORMAL) CMP (COMPREHENSIVE METABOLIC PANEL) (07/05/2024 9:24 AM CDT) SODIUM 132(L) 136 - 145 mmol/L 07/05/2024 10:05 AM T [facility] POTASSIUM 2.6(LL) 3.5 - 5.1 mmol/L 07/05/2024 10:05 AM CDT [facility] CHLORIDE 107 98 - 107 mmol/L 07/05/2024 10:05 AM T [facility] CO2, VENOUS 16(L) 22 - 30 mmol/L 07/05/2024 10:05 AM [facility] ANION GAP 11.6 <18.0 mmol/L 07/05/2024 10:05 AM T [facility] GLUCOSE 193(H) 70 - 99 mg/dL 07/05/2024 10:05 AM T [facility] BUN 7 5 - 18 mg/dL 07/05/2024 10:05 AM T [facility] CREATININE, BLOOD 1.03(H) 0.60 - 1.00 mg/dL 07/05/2024 10:05 AM [facility] BUN/CREATININE RATIO 7(L) 12 - 20 ratio 07/05/2024 10:05 AM [facility] TOTAL PROTEIN 6.1(L) 6.3 - 8.2 g/dL 07/05/2024 10:05 AM T [facility] ALBUMIN 3.4(L) 3.5 - 5.0 g/dL 07/05/2024 10:05 AM [facility] A/G RATIO 1.3 1.0 - 2.2 07/05/2024 10:05 AM [facility] CALCIUM 8.7 8.7 - 10.5 mg/dL 07/05/2024 10:05 AM [facility] T BILI 0.6 0.2 - 1.2 mg/dL 07/05/2024 10:05 AM [facility] SGOT (AST) 15 5 - 34 U/L 07/05/2024 10:05 AM CDT [facility] SGPT (ALT) 46 0 - 55 U/L 07/05/2024 10:05 AM CDT [facility] ALKALINE PHOSPHATASE 61 40 - 150 U/L 07/05/2024 10:05 AM CDT [facility] IS THE PATIENT REQUIRED TO BE FASTING? No 07/05/2024 10:05 AM CDT [facility] GFR, ESTIMATED >60 >=60 07/05/2024 10:05 AM CDT [facility] Comment: Creatinine Clearance is the preferred criteria for selecting drug dose adjustments in renally impaired patients. ??The GFR is provided as additional pertinent clinical information. GFR is reported in mL/min/1.73 sq m. Calculation based on the Chronic Kidney Disease Epidemiology Collaboration (CKD- EPI) equation refit without adjustment for race. GFR, EST. >60 >=60 024 10:05 AM CDT [facility] GFR, EST. NONAFRICAN >60 >=60 07/05/2024 10:05 AM CDT [facility] Blood Venipuncture / Unknown 07/05/2024 9:24 AM CDT 07/05/2024 9:24 AM CDT us Markus Finley MD CHEMISTRY ORDERABLES Fin al Result [facility] [address] [place] [address] * (ABNORMAL) CMP (COMPREHENSIVE METABOLIC PANEL) (07/04/2024 10:53 AM CDT) SODIUM 128(L) 136 - 145 mmol/L 07/04/2024 11:41 AM CDT [facility] POTASSIUM 2.7(LL) 3.5 - 5.1 mmol/L 07/04/2024 11:41 AM CDT [facility] CHLORIDE 102 98 - 107 mmol/L 07/04/2024 11:41 AM [facility] CO2, VENOUS 17(L) 22 - 30 mmol/L 07/04/2024 11:41 AM [facility] ANION GAP 11.7 <18.0 mmol/L 07/04/2024 11:41 AM [facility] GLUCOSE 150(H) 70 - 99 mg/dL 07/04/2024 11:41 AM [facility] BUN 11 5 - 18 mg/dL 07/04/2024 11:41 AM [facility] CREATININE, BLOOD 1.00 0.60 - 1.00 mg/dL 07/04/2024 11:41 AM [facility] BUN/CREATININE RATIO 11(L) 12 - 20 ratio 07/04/2024 11:41 AM [facility] TOTAL PROTEIN 6.5 6.3 - 8.2 g/dL 07/04/2024 11:41 AM [facility] ALBUMIN 3.6 3.5 - 5.0 g/dL 07/04/2024 11:41 AM [facility] A/G RATIO 1.2 1.0 - 2.2 07/04/2024 11:41 AM [facility] CALCIUM 8.8 8.7 - 10.5 mg/dL 07/04/2024 11:41 AM [facility] T BILI 0.7 0.2 - 1.2 mg/dL 07/04/2024 11:41 AM [facility] SGOT (AST) 19 5 - 34 U/L 07/04/2024 11:41 AM [facility] SGPT (ALT) 50 0 - 55 U/L 07/04/2024 11:41 AM [facility] ALKALINE PHOSPHATASE 67 40 - 150 U/L 07/04/2024 11:41 AM [facility] IS THE PATIENT REQUIRED TO BE FASTING? No 07/04/2024 11:41 AM CDT [facility] GFR, ESTIMATED >60 >=60 07/04/2024 11:41 AM CDT [facility] Comment: Creatinine Clearance is the preferred criteria for selecting drug dose adjustments in renally impaired patients. ??The GFR is provided as additional pertinent clinical information. GFR is reported in mL/min/1.73 sq m. Calculation based on the Chronic Kidney Disease Epidemiology Collaboration (CKD- EPI) equation refit without adjustment for race. GFR, EST. >60 >=60 024 11:41 AM CDT [facility] GFR, EST. NONAFRICAN >60 >=60 07/04/2024 11:41 AM CDT [facility] Blood Sub-Q Port Venou s Access Device (Medi-Port, Implanted Port) / Unknown 07/04/2024 10:53 AM CDT 07/04/2024 10:54 AM CDT Markus Finley MD CHEMISTRY ORDERABLES Fin al Result [facility] [address] [place] [address] * (ABNORMAL) CMP (COMPREHENSIVE METABOLIC PANEL) (06/12/2024 2:14 PM CDT) SODIUM 140 136 - 145 mmol/L 06/12/2024 4:04 PM CDT [facility] POTASSIUM 3.5 3.5 - 5.1 mmol/L 06/12/2024 4:04 PM CDT [facility] CHLORIDE 109(H) 98 - 107 mmol/L 06/12/2024 4:04 PM CDT [facility] CO2, VENOUS 23 22 - 30 mmol/L 06/12/2024 4:04 PM CDT [facility] ANION GAP 11.5 <18.0 mmol/L 06/12/2024 4:04 PM CDT [facility] GLUCOSE 136(H) 70 - 99 mg/dL 06/12/2024 4:04 PM T [facility] BUN 12 5 - 18 mg/dL 06/12/2024 4:04 PM [facility] CREATININE, BLOOD 0.73 0.60 - 1.00 mg/dL 06/12/2024 4:04 PM [facility] BUN/CREATININE RATIO 16 12 - 20 ratio 06/12/2024 4:04 PM [facility] TOTAL PROTEIN 6.4 6.3 - 8.2 g/dL 06/12/2024 4:04 PM [facility] ALBUMIN 3.6 3.5 - 5.0 g/dL 06/12/2024 4:04 PM [facility] A/G RATIO 1.3 1.0 - 2.2 06/12/2024 4:04 PM [facility] CALCIUM 9.1 8.7 - 10.5 mg/dL 06/12/2024 4:04 PM [facility] T BILI 0.2 0.2 - 1.2 mg/dL 06/12/2024 4:04 PM [facility] SGOT (AST) 20 5 - 34 U/L 06/12/2024 4:04 PM [facility] SGPT (ALT) 37 0 - 55 U/L 06/12/2024 4:04 PM [facility] ALKALINE PHOSPHATASE 59 40 - 150 U/L 06/12/2024 4:04 PM [facility] IS THE PATIENT REQUIRED TO BE FASTING? No 06/12/2024 4:04 PM [facility] GFR, ESTIMATED >60 >=60 06/12/2024 4:04 PM [facility] Comment: Creatinine Clearance is the preferred criteria for selecting drug dose adjustments in renally impaired patients. ??The GFR is provided as additional pertinent clinical information. GFR is reported in mL/min/1.73 sq m. Calculation based on the Chronic Kidney Disease Epidemiology Collaboration (CKD- EPI) equation refit without adjustment for race. GFR, EST. >60 >=60 024 4:04 PM CDT [facility] GFR, EST. NONAFRICAN >60 >=60 06/12/2024 4:04 PM CDT [facility] Blood Sub-Q Port Venou s Access Device (Medi-Port, Implanted Port) / Unknown 06/12/2024 2:14 PM CDT 06/12/2024 2:14 PM CDT Markus Finley MD CHEMISTRY ORDERABLES Fin al Result Performing Organization Address City/[facility]/ZIP Co de Phone Number [facility] [address] [place] [address] * COMPLETE BLOOD COUNT (CBC) WITH DIFF (05/21/2024 12:00 AM CDT) Markus Finley MD HEMATOLOGY ORDERABLES Fi nal Result SCAN * THYROID STIMULATING HORMONE (TSH) (05/21/2024 12:00 AM CDT) Markus Finley MD CHEMISTRY ORDERABLES Fin al Result SCAN * CMP (COMPREHENSIVE METABOLIC PANEL) (05/21/2024 12:00 AM CDT) Markus Finley MD CHEMISTRY ORDERABLES Fin al Result SCAN * CORTISOL (05/01/2024 2:38 PM CDT) CORTISOL 16.9 mcg/dL 05/01/2024 4:1 3 PM CDT [facility] Blood Venipuncture / Unknown 05/01/2024 2:38 PM CDT 05/01/2024 2:38 PM CDT Narrative [facility] - 05/01/2024 4:13 PM CDT AM: ??4 TO 19 mcg/dL PM: ??Approx. Half of AM Value ?? us Markus Finley MD CHEMISTRY ORDERABLES Fin al Result [facility] [address] [place] [address] documented in this encounter Visit Diagnoses Diagnosis Metastatic melanoma (HCC)- Primary Melanoma of skin, site unspecified documented in this encounter Administered Medications Inactive Administered Medications - up to 3 most recent administrations Medication Order MAR Action Action Date Dose Rate Site 0.9 % sodium chloride solution at 150 mL/hr, Intravenous, ONCE, 1 dose, On Tue05/01/24 at 1400Indications:Metastatic melanoma (HCC) New Bag 05/01/2024 2:10 PM CDT 250 mL 150 mL/hr Heparin Na (Pork) Lock Flsh PF SOLN 50 Units 50 Units, Intravenous, PRN, Starting on Tue05/01/24 at 1329, Until Tue05/01/24 at 1800, Line Care, Line care per [facility].Indications:Metastatic melanoma (HCC) Given 05/01/2024 3:35 PM CDT 50 Units ipilimumab (YERVOY) 135 mg in sodium chloride 0.9 % 250 mL chemo IVPB 135 mg (rounded from 133 mg = 1 mg/kg ? 133 kg), Intravenous, ONCE, 1 dose, On Tue05/01/24 at 1400, Administer over 30 Minutes, Administer through a low protein binding 0.2 or 1.2 micron in-line filter. Do not administer other medications through the same IV line. Flush IV line at the end of the infusion.Indications:Metasta tic melanoma (HCC) New Bag 05/01/2024 2:57 PM CDT 135 mg nivolumab (Opdivo) 380 mg in sodium chloride 0.9 % 100 mL IVPB 380 mg (rounded from 399 mg = 3 mg/kg ? 133 kg), Intravenous, ONCE, 1 dose, On Tue05/01/24 at 1400, Administer over 30 Minutes, Administer nivolumab first, and promptly flush the line with saline prior to starting ipilimumab. Administer through a line with a sterile, nopyrogenic, low protein binding 0.2 to 1.2 micrometer in-line filter. Do not administer other medications through the same IV line. Flush IV line at the end of the infusion.Indications:Metasta tic melanoma (HCC) New Bag 05/01/2024 2:13 PM CDT 380 mg documented in this encounter Care Teams Superintendent Distribution Relationship Specialty Start Date End Date Pritesh Chu MD [address] [place] [address] PCP - General Family Medicine 04/18/24 Markus Finley MD [address] [place] [address] Consulting Physician Medical Oncology 04/18/24 documented as of this encounter
--- OUTSIDE RECORDS SUMMARY | 2024-10-26 08:05 | XMS_ITS | Encounter Summary ---
Author Organization [facility] Address [address] [place] [address] Phone Care Team Providers Care Shirt Cleaner Name Role Phone Pritesh Chu MD Primary Care Provider [phone] Markus Finley MD Unavailable [phone] Encounter Details Date Type Department Care Team (Latest Contact Info) Description 04/19/2024 7:10 AM CDT - 04/19/2024 11:59 PM CDT Hospital Encounter [facility] [address] [place] [phone] Markus Finley MD [address] [place] [address] Discharge Disposition: Discharged to home or Selfcare [...] Take 1 Tablet by mouth daily. 02/29/2024 Calcium Carbonate Antacid (TUMS PO) Take by mouth in the morning and at bedtime. 06/27/2024 ibuprofen (MOTRIN) 400 MG Tablet Take 400 mg by mouth every 6 hours as needed. 06/27/2024 omeprazole (PriLOSEC) 40 MG CAPSULE DELAYED RELEASE Take 1 Capsule by mouth daily. 30 Capsule 3 04/18/2024 06/25/2024 documented as of this encounter Plan of Treatment Upcoming Encounters Date Type Department Care Team (Late st Contact Info) Description 11/15/2024 1:00 PM CUSTOMER SUPPORT ASSISTANT Lab [facility] [address] [place] [address] Markus Finley MD [address] [place] [address] 11/15/2024 2:00 PM CUSTOMER SUPPORT ASSISTANT Appointment [facility] [address] [facility] [place] [address] Markus Finley MD [address] [place] [address] Discharge Disposition: Discharged to home or Selfcare documented as of this encounter Procedures Procedure Name Priority Date/Time Associated Diagnosis Comments PET REFERENCE IMAGES FOR IMPORT Routine 04/19/2024 7:10 AM CDT documented in this encounter Results * PET REFERENCE IMAGES FOR IMPORT (04/19/2024 7:10 AM CDT) Markus Finley MD [facility] [place] ORDERABLES Final Result documented in this encounter Visit Diagnoses Not on filedocumented in this encounter Care Teams Shirt Cleaner Relationship Specialty Start Date End Date Pritesh Chu MD [address] [place] [address] PCP - General Family Medicine 04/18/24 Markus Finley MD [address] [place] [address] Consulting Physician Medical Oncology 04/18/24 documented as of this encounter
--- OUTSIDE RECORDS SUMMARY | 2024-10-26 08:05 | XMS_ITS | Encounter Summary ---
Author Organization [facility] Care Team Providers Care High School Band Director Name Role Phone Pritesh Chu MD Primary Care Provider [phone] Markus Finley MD Unavailable [phone] Encounter Details Date Type Department Care Team (Latest Contact Info) Description 05/08/2024 Travel Social History Tobacco Use Types Packs/Day [...] st Contact Info) Description 11/15/2024 1:00 PM PRACTICE CLINICIAN Lab [facility] [address] [place] [phone] Markus Finley MD [address] [place] [address] 11/15/2024 2:00 PM PRACTICE CLINICIAN Appointment [facility] [address] [place] [address] Markus Finley MD [address] [place] [address] Discharge Disposition: Discharged to home or Selfcare documented as of this encounter Visit Diagnoses Not on filedocumented in this encounter Care Teams High [employer] Band Director Relationship Specialty Start Date End Date Pritesh Chu MD [address] [address] PCP - General Family Medicine 04/18/24 Markus Finley MD [address] [place] [address] Consulting Physician Medical Oncology 04/18/24 documented as of this encounter
--- OUTSIDE RECORDS SUMMARY | 2024-10-26 08:05 | XMS_ITS | Encounter Summary ---
Author Organization [facility] Care Team Providers Care Heavy Equipment Operator Name Role Phone Pritesh Chu MD Primary Care Provider [phone] Markus Finley MD Unavailable [phone] Encounter Details Date Type Department Care Team (Latest Contact Info) Description 04/18/2024 Travel Social History Tobacco Use Types Packs/Day [...] st Contact Info) Description 11/15/2024 1:00 PM HOSPITAL ADMINISTRATOR Lab [facility] [address] [place] [phone] Markus Finley MD [address] [place] [address] 11/15/2024 2:00 PM HOSPITAL ADMINISTRATOR Appointment [facility] [address] [place] [address] Markus Finley MD [address] [place] [address] Discharge Disposition: Discharged to home or Selfcare documented as of this encounter Visit Diagnoses Not on filedocumented in this encounter Care Teams Heavy Equipment Operator Relationship Specialty Start Date End Date Pritesh Chu MD [address] [address] PCP - General Family Medicine 04/18/24 Markus Finley MD [address] [place] [address] Consulting Physician Medical Oncology 04/18/24 documented as of this encounter
--- OUTSIDE RECORDS SUMMARY | 2024-10-26 08:05 | XMS_ITS | Encounter Summary ---
Author Organization [facility] Care Team Providers Care Muck Boss Name Role Phone Pritesh Chu MD Primary Care Provider [phone] Markus Finley MD Unavailable [phone] Encounter Details Date Type Department Care Team (Latest Contact Info) Description 05/22/2024 Travel Social History Tobacco Use Types Packs/Day [...] st Contact Info) Description 11/15/2024 1:00 PM SMALL OFFSET PRINTER Lab [facility] [address] [place] [phone] Markus Finley MD [address] [place] [address] 11/15/2024 2:00 PM SMALL OFFSET PRINTER Appointment [facility] [address] [place] [address] Markus Finley MD [address] [place] [address] Discharge Disposition: Discharged to home or Selfcare documented as of this encounter Visit Diagnoses Not on filedocumented in this encounter Care Teams Muck Boss Relationship Specialty Start Date End Date Pritesh Chu MD [address] [address] PCP - General Family Medicine 04/18/24 Markus Finley MD [address] [place] [address] Consulting Physician Medical Oncology 04/18/24 documented as of this encounter
--- OUTSIDE RECORDS SUMMARY | 2024-10-26 08:05 | XMS_ITS | Encounter Summary ---
Author Organization [facility] Address [address] [facility] [place] [address] Phone Care Team Providers Care Freight Trucker Name Role Phone Pritesh Chu MD Primary Care Provider [phone] Markus Finley MD Unavailable [phone] Reason for Referral * Radiology Services (Routine) - Closed Specialty Diagnoses / Procedures Referred By Delbert villareal Referred To Contact Diagnoses Metastatic melanoma (HCC) Procedures MRI BRAIN W/WO CONTRAST Markus Finley MD [address] [place] [address] Phone: tel: fax: [facility] [address] [address] Phone: tel: fax: Referral ID Status Reason Start Date Expiration Date Visits Re quested Visits Authorized [id number] Closed 04/18/2024 1 1 Reason for Visit * Reason Comments New Patient Metastatic melanoma * Consult, Test & Initiate Treatment (Routine) - Open Specialty Diagnoses / Procedures Referred By Contac t Referred To Contact Radiology Diagnoses Metastatic melanoma (HCC) [facility] [address] [place] [address] Phone: tel: fax: Referral ID Status Reason Start Date Expiration Date Visits Re quested Visits Authorized [id number] Open 1 1 Encounter Details Date Type Department Care Team (Late st Contact Info) Description 04/18/2024 3:00 PM CDT [facility] [address] [place] [id number] Markus Finley MD [address] [place] [address] Metastatic melanoma (HCC) (Primary Dx) Discharge [...] Sign Reading Time Taken Comments Blood Pressure 173/101 04/18/2024 3:30 PM CDT Pulse 112 04/18/2024 3:30 PM CDT Temperature 37.7 ??C (99.9 ??F) 04/18/2024 3:30 PM CD T Respiratory Rate 18 04/18/2024 3:30 PM CDT Oxygen Saturation 99% 04/18/2024 3:30 PM CDT Inhaled Oxygen Concentration - - Weight 131.7 kg (290 lb 4.8 oz) 04/18/2024 3:30 PM CDT Height - - Body Mass Index - - documented in this encounter Patient Instructions * Attachments The following attachments cannot be sent through Care Everywhere. * Nivolumab injection (Sinhala) * Ipilimumab injection (Sinhala) documented in this encounter Progress Notes * Seble Artis - 04/18/2024 3:00 PM CDT OUTPATIENT HEMATOLOGY-ONCOLOGY CONSULT/H&P DATE OF CONSULT: 04/18/2024 REFERRING PHYSICIAN: No ref. provider found REASON FOR CONSULTATION: Metastatic melanoma Present Illness Dayanara Hilton is a very pleasant 24 y.o. female seen today to establish care for metastatic melanoma. Dayanara is here today ambulating without support accompanied by her fiance for support. Shereports it started after developing mole on the dorsum of the left foot that in 2021 started to swell with blood. Patient reports evaluation by PCP with referral to dermatology for further evaluation. Dayanara was referred to Dr. De with left foot lesion excision done on June 14, 2023 that showed ulcerated malignant melanoma 6.1 mm thickness with deep margins 2.2 mm from the melanoma. Patient underwent wide excision and sentinel lymph node biopsy on August 25, 2023 that showed no resi dual melanoma on the wide excision and lymph node positive involving lateral superficial left groinand left groin superficial vertical with metastatic melanoma. Patient was referred to medical oncology with evaluation completed by Dr. Christopher Meeks on 09/13/[address] completed on 09/27/23. PET CT identified no evidence of active malignancy. Dayanara reports development of new blood filled mole near the previous excision site. This prompted her to contact Dr. De for evaluation and excision. She was seen on 02/20/24 with pathology identifyingresidual/recurrent melanoma margins negative. Nodular type with no ulceration. Maximum thickness 6.1 mm with the tissue resected initially in A ugust 2022. Currently specimen showed thickness of 3.3 mm. No lymphovascular invasion. Closest margin to invasive melanoma 0.08 mm. Patient returned to Dr. Meeks after recurrent disease confirmedwith PET CT completed on 04/03/24 identifying multiple subcutaneous masses in the left branham and anteromedial left thigh with increased activity, consistent with metastatic disease. Dayanara denies any previous immunotherapy treatments due to insurance denial. Patient reports palpable nodules along the left branham, denying pain with palpation. She reports occasional twinges of pain occurring at areas where FDG avid subQ nodules present. Dayanara denies any previous MRI brain completed in the last10 years. She reports anxiety and depression that is relatively well controlled. Patient reports having good support system in place with parent's pushing her to advocate for treatments. Dayanara complains of stomach upset that is improved with OTC Tums. She reports using Tums every few days for acid symptoms. Patient reports only daily medications is hormonal control. Dayanara re ports occasional use of Ibuprofen for occasional pain. She reports history of cigarette tobacco useat 1/2 pack per day for 8 years. Dayanara reports discontinuing cigarettes in 2021. She has port acath in place that has not been accessed since placement. She reports history of 2x miscarriage, denying any full-term pregnancies. Dayanara reports father diagnosed with prostate cancer. She reports father is age 65. Patient reports paternal grandfather with metastatic cancer to bone. Dayanara reports maternal grandfather withsuspected malignancy, reporting he lost contact with family long time ago. PAST MEDICAL AND SURGICAL HISTORY: History reviewed. No pertinent past medical history. No past surgical history on file. SOCIAL AND FAMILY HISTORY: Reviewed in chart Dayanara history of cigarette tobacco use at 1/2 pack per day for 8 years. She reports discontinuing tobacco use in 2021. Patient denies any regular alcohol consumption. History of occasional marijuana use, denying current consumption. Dayanara reports father diagnosed with prostate cancer. She reports father is age 65. Patient reports paternal grandfather with metastatic cancer to bone. Dayanara reports maternal grandfather withsuspected malignancy, reporting he lost contact with family long time ago. 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 Genetics Risk Assessment Discussed/N/A Allergies as of 04/18/2024 (No Known Allergies) REVIEW OF SYSTEMS Review of Systems Constitutional: Negative for malaise/fatigue and weight loss. Respiratory: Negative for cough and shortness of breath. Cardiovascular: Negative for leg swelling. Gastrointestinal: Positive for heartburn (possible, requires tums every 2-3 days). Psychiatric/Behavioral: Positive for depression. The patient is nervous/anxious. Relatively controlled, denying need for medication management PHYSICAL EXAM Physical Exam PAIN ASSESSMENT: Dayanara denies any pain complaints today. DATA: No results found for: WBC , RBC , HEMOGLOBIN , HEMATOCRIT , MCV , MCH , MCHC , PLATELETCNT , RDW , DIFF , LYMPHOCYTES , RELEOS , RELBAS , ANC , MONOCYTES , EOSINOPHILS , BASOPHILS No results found for: SODIUM , POTASSIUM , CHLORIDE , ANIONGAP , GLUCOSE , BUN , CREATININE , TOTALPROTEIN , ALBUMIN , CALCIUM , AST , SGPTALT , ALKALINEPHO 02/21/24 PATHOLOGY REPORT OSH: FINAL DIAGNOSIS: Skin, [...] Port a cath in place Plan: 2. Obtain MRI Brain to assess for metastatic disease occurring in the brain given she has not completed this imaging study as of yet. Will attempt to complete this imaging study at [facility] as it is easier to access this hospital from patient's home. 3. Obtain [employer] NGS testing on to assess for actionable mutations to assess for additional treatment options. 4. Discussed immunotherapy regimen with Opdivo 480 mg and Yervoy 160 mg given every 4 weeks IV in treatment of locally advanced melanoma. We discussed the treatment course, route of administration and side effect profile of immunotherapy agent Opdivo and Yervoy, which generally includes but is not l imited to symptoms associated with overactivation of the immune system towards any organ system. This includes: fatigue, arthritis, pneumonitis, dermatitis, hepatitis, colitis, neuropathy, hypophysitis and other endocrinopathies (diabetes, thyroid disorders), the latter of which is generally considered to be irreversible. We will obtain labs at each visit. We discussed that the antidote for toxicity, if severe, is prednisone +/- other immunosuppressant agents. Patient knows to call us should they experience any new symptoms so it may be addressed rapidly. 5. Encouraged Dayanara to eat a balanced diet and remain active as part of healthy lifestyle. She was encouraged to eat small meals frequently throughout the day to maintain intake and prevent weight loss while on treatment. Reviewed activities she can do to remain active, gradually increasing duration as stamina improves. 6. Contact the office with any questions, concerns, or new symptoms that arise. Patient was provided office number, advising it will go to exchange after hours. Will follow up with patient next week to go over any additional questions that arise after today's visit and to review PET once uploaded into system. Plan to start treatment on 05/01/24 pending insurance approval The patient was given an opportunity to ask questions, and all questions answered to patient's satisfaction. Patient verbalizes understanding of the plan as outlined above. The documentation for this visit was completed by Seble Artis acting as a scribe for Markus Moses MD. 04/18/2024, 3:36 PM CDT * Markus Finley MD - 04/18/2024 3:00 PM CDT OUTPATIENT HEMATOLOGY-ONCOLOGY CONSULT/H&P DATE OF CONSULT: 04/18/24 REFERRING PHYSICIAN: No ref. provider found REASON FOR CONSULTATION: Metastatic melanoma Present Illness Dayanara Hilton is a very pleasant 24 y.o. female seen today to establish care for metastatic melanoma. Dayanara is here today ambulating without support accompanied by her fiance for support. Shereports it started after developing mole on the dorsum of the left foot that in 2021 started to swell with blood. Patient reports evaluation by PCP with referral to dermatology for further evaluation. Dayanara was referred to Dr. De with left foot lesion excision done on June 14, 2023 that showed ulcerated malignant melanoma 6.1 mm thickness with deep margins 2.2 mm from the melanoma. Patient underwent wide excision and sentinel lymph node biopsy on August 25, 2023 that showed no resi dual melanoma on the wide excision and lymph node positive involving lateral superficial left groinand left groin superficial vertical with metastatic melanoma. [...] with increased activity, consistent with metastatic disease. Dayanara denies any previous immunotherapy treatments due to insurance denial. Patient reports palpable nodules along the left branham, denying pain with palpation. She reports occasional twinges of pain occurring at areas where FDG avid subQ nodules present. Dayanara denies any previous MRI brain completed in the last 10 years. She reports anxiety and depression that is relatively well controlled. Patient reports having good support system in place with parents pushing her to advocate for her care. Dayanara complains of stomach upset that is improved with OTC Tums. She reports using Tums every few days for acid symptoms. Patient reports only daily medications is hormonal control. Dayanara reports occasional use of Ibuprofen for occasional pain. She reports history of cigarette tobacco use at 1/2 pack per day for 8 years. Dayanara reports discontinuing cigarettes in 2021. She has port a cath in place that has not been accessed since placement. She reports historyof 2x miscarriage, denying any full-term pregnancies. Dayanara reports father diagnosed with prostate cancer. She reports father is age 65. Patient reports paternal grandfather with metastatic cancer to bone. Dayanara reports maternal grandfather withsuspected malignancy, reporting he lost contact with family long time ago. PAST MEDICAL AND SURGICAL HISTORY: Past Medical History Positives Diagnosis Date Depression Melanoma (HCC) Miscarriage 07/09/2022 Miscarriage 12/2022 Non-alcoholic fatty liver disease Obesity Past Surgical History: Procedure Laterality Date APPENDECTOMY 2005 ONC ACCESS PORTACATH SKIN GRAFT 08/25/2023 SOCIAL AND FAMILY HISTORY: Reviewed in chart Dayanara history of cigarette tobacco use at 1/2 pack per day for 8 years. She reports discontinuing tobacco use in 2021. Patient denies any regular alcohol consumption. History of occasional marijuana use, denying current consumption. Dayanara reports father diagnosed with prostate cancer. She reports father is age 65. Patient reports paternal grandfather with metastatic cancer to bone. Dayanara reports maternal grandfather withsuspected malignancy, reporting he lost contact with family long time ago. 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 Genetics Risk Assessment Discussed/N/A Allergies as of 04/18/2024 (No Known Allergies) REVIEW OF SYSTEMS Review of Systems Constitutional: Negative for malaise/fatigue and weight loss. Respiratory: Negative for cough and shortness of breath. Cardiovascular: Negative for leg swelling. Gastrointestinal: Positive for heartburn (possible, requires tums every 2-3 days). Psychiatric/Behavioral: Positive for depression. The patient is nervous/anxious. Relatively controlled, denying need for medication management PHYSICAL EXAM Physical Exam Constitutional: Appearance: Normal appearance. HENT: Head: Normocephalic and atraumatic. Eyes: Conjunctiva/sclera: Conjunctivae normal. Pulmonary: Effort: Pulmonary effort is normal. Abdominal: General: Abdomen is flat. Palpations: Abdomen is soft. Musculoskeletal: General: Normal range of motion. Cervical back: Normal range of motion and neck supple. Right lower leg: No edema. Left lower leg: No edema. Skin: General: Skin is warm and dry. Coloration: Skin is not jaundiced. Comments: Left foot with raised lesion on dorsum. Palpable nodule on anterior branham left. Neurological: Mental Status: She is alert and oriented to person, place, and time. Gait: Gait is intact. Psychiatric: Mood and Affect: Affect normal. PAIN ASSESSMENT: Dayanara denies any pain complaints today. DATA: Lab Results Component Value Date WBC 8.40 04/18/2024 RBC 4.87 04/18/2024 HEMOGLOBIN 14.7 04/18/2024 HEMATOCRIT 42.4 04/18/2024 MCV 87.1 04/18/2024 MCH 30.2 04/18/2024 MCHC 34.7 04/18/2024 PLATELETCNT 266 04/18/2024 RDW 11.4 (L) 04/18/2024 LYMPHOCYTES 29.2 04/18/2024 RELEOS 1.3 04/18/2024 RELBAS 0.6 04/18/2024 ANC 5.28 04/18/2024 MONOCYTES 0.51 04/18/2024 EOSINOPHILS 0.11 04/18/2024 BASOPHILS 0.05 04/18/2024 Lab Results Component Value Date SODIUM 140 06/12/2024 POTASSIUM 3.5 06/12/2024 CHLORIDE 109 (H) 06/12/2024 ANIONGAP 11.5 06/12/2024 GLUCOSE 136 (H) 06/12/2024 BUN 12 06/12/2024 CREATININE 0.73 06/12/2024 TOTALPROTEIN 6.4 06/12/2024 ALBUMIN 3.6 06/12/2024 CALCIUM 9.1 06/12/2024 SGPTALT 37 06/12/2024 ALKALINEPHO 59 06/12/2024 02/21/24 PATHOLOGY REPORT OSH: FINAL DIAGNOSIS: Skin, [...] extremity Port a cath in place Plan: 1. Reviewed above clinical data including recent symptoms, labs, imaging and pathology results withpatient and family. Made them aware of metastatic melanoma with evidence of multiple subcut nodulesthroughout the left LE. Reviewed that this is not a surgical disease at this time given the multiplicity of the nodules. We need to start systemic therapy NATALIA and pending response, consider surgicalexcision of residual disease. She is agreeable. Discussed diagnosis, treatment options and prognostic implication of disease. 2. Obtain MRI Brain for staging. Will attempt to complete this imaging study at [facility] as it is easier to access this hospital from patient's home. 3. Obtain [employer] NGS testing on to assess for actionable mutations to assess for additional treatment options. 4. Discussed immunotherapy regimen with Opdivo 3 mg/kg and Yervoy 1 mg/kg (flip dose regimen- shownbetter toxicity profile with similar outcomes of PFS and OS )given every 4 weeks IV in treatment oflocally advanced melanoma. We discussed the treatment course, route of administration and side effect profile of immunotherapy agent Opdivo and Yervoy, which generally includes but is not limited to symptoms associated with overactivation of the immune system towards any organ system. This includes: fatigue, arthritis, pneumonitis, dermatitis, hepatitis, colitis, neuropathy, hypophysitis and other endocrinopathies (diabetes, thyroid disorders), the latter of which is generally considered to be irreversible. We will obtain labs at each visit. We discussed that the antidote for toxicity, if severe, is prednisone +/- other immunosuppressant agents. Patient knows to call us should they experience any new symptoms so it may be addressed rapidly. 5. Encouraged Dayanara to eat a balanced diet and remain active as part of healthy lifestyle. She was encouraged to eat small meals frequently throughout the day to maintain intake and prevent weight loss while on treatment. Reviewed activities she can do to remain active, gradually increasing duration as stamina improves. 6. Contact the office with any questions, concerns, or new symptoms that arise. Patient was provided office number, advising it will go to exchange after hours. Will follow up with patient next week to go over any additional questions that arise after today's visit and to review PET once uploaded into system. Plan to start treatment on 05/01/24 The patient was given an opportunity to ask questions, and all questions answered to patient's satisfaction. Patient verbalizes understanding of the plan as outlined above. The documentation for this visit was completed by Seble Artis acting as a scribe for Markus Moses MD. The documentation recorded by the scribe was completed while in the exam room with me and the patient. The documentation accurately reflects the service I personally performed and the decisions made by me. I have confirmed and edited the documentation as necessary. Markus Finley MD documented in this encounter Miscellaneous Notes * Interdisciplinary - Sandra Mcclelland - 04/18/2024 3:00 PM CDT The patient reports pain in her left thigh. Pain score is 2/10. * Interdisciplinary - Sandra Mcclelland - 04/18/2024 3:00 PM CDT AVS printed. Doctor will follow up via phone call next week. Patient will start treatment 05/01. MRIbrain to be scheduled at [facility]. documented in this encounter Plan of Treatment Upcoming Encounters Date Type Department Care Team (Late st Contact Info) Description 11/15/2024 1:00 PM LIQU[employer]IED [employer] TECHNICIAN Lab [facility] Laboratory Services [address] [place] [address] Markus Finley MD [address] [place] [address] 11/15/2024 2:00 PM LIQUIFIED NATURAL G[employer] TECHNICIAN Appointment [facility] MRI [address] [place] [id number] Markus Finley MD [address] [place] [address] Discharge Disposition: Discharged to home or Selfcare documented as of this encounter Procedures Procedure Name Priority Date/Time Associated Diagnosis Comments MRI BRAIN W/WO CONTRAST Routine 05/29/2024 12:00 AM CDT Metastatic melanoma (HCC) CBC WITH AUTO DIFFERENTIAL Routine 04/18/2024 4:28 PM CDT LACTATE DEHYDROGENASE (LD) Routine 04/18/2024 4:28 PM CDT CMP (COMPREHENSIVE METABOLIC PANEL) Routine 04/18/2024 4:28 PM CDT COMPLETE BLOOD COUNT (CBC) WITH DIFF Routine 04/18/2024 4:28 PM CDT documented in this encounter Results * MRI BRAIN W/WO CONTRAST (05/29/2024 12:00 AM CDT) Anatomical Region Laterality Modality Head N/A Other 05/29/2024 Markus Finley MD IMG MR ORDERABLES Final Result * (ABNORMAL) CBC with Auto Differential (04/18/2024 4:28 PM CDT) WBC 8.40 4.00 - 12.00 10(3)/mcL 04/18/2024 4:54 PM CDT [facility] RBC 4.87 3.80 - 5.30 10(6)/mcL 04/18/2024 4:54 PM CDT [facility] HEMOGLOBIN (HGB) 14.7 12.0 - 15.8 g/dL 04/18/2024 4:54 PM CDT [facility] HEMATOCRIT (HCT) 42.4 36.0 - 47.0 % 04/18/2024 4:54 PM CDT [facility] MCV 87.1 82.0 - 96.0 fL 04/18/2024 4:54 PM CDT [facility] MCH 30.2 26.0 - 34.0 pg 04/18/2024 4:54 PM CDT [facility] MCHC 34.7 31.0 - 36.0 g/dL 04/18/2024 4:54 PM CDT [facility] PLATELET COUNT 266 140 - 440 10(3)/mcL 04/18/2024 4:54 PM CDT [facility] RDW 11.4(L) 11.8 - 15.5 % 04/18/2024 4:54 PM CDT [facility] MPV 10.9 9.7 - 12.4 fL 04/18/2024 4:54 PM CDT [facility] NEUTROPHILS 62.8 47.0 - 73.0 % 04/18/2024 4:54 PM CDT [facility] LYMPHOCYTES 29.2 18.0 - 42.0 % 04/18/2024 4:54 PM CDT [facility] MONOCYTES 6.1 4.0 - 12.0 % 04/18/2024 4:54 PM CDT [facility] EOSINOPHILS 1.3 0.0 - 5.0 % 04/18/2024 4:54 PM CDT [facility] BASOPHILS 0.6 0.0 - 1.0 % 04/18/2024 4:54 PM CDT [facility] ABSOLUTE NEUTROPHILS 5.28 1.60 - 7.70 10(3)/mcL 04/18/2024 4:54 PM CDT [facility] ABSOLUTE LYMPHOCYTES 2.45 1.30 - 3.20 10(3)/mcL 04/18/2024 4:54 PM CDT [facility] ABSOLUTE MONOCYTES 0.51 0.20 - 1.00 10(3)/mcL 04/18/2024 4:54 PM CDT [facility] ABSOLUTE EOSINOPHIL 0.11 0.00 - 0.40 10(3)/mcL 04/18/2024 4:54 PM CDT [facility] ABSOLUTE BASOPHILS 0.05 0.00 - 0.10 10(3)/mcL 04/18/2024 4:54 PM CDT [facility] NRBC PER 100 WBC 0 04/18/20 24 4:54 PM CDT [facility] Blood Venipuncture / Unknown 04/18/2024 4:28 PM CDT 04/18/2024 4:28 PM CDT us Markus Finley MD HEMATOLOGY ORDERABLES Fi nal Result [facility] [address] [place] [address] * (ABNORMAL) CMP (Comprehensive Metabolic Panel) (04/18/2024 4:28 PM CDT) SODIUM 140 136 - 145 mmol/L 04/18/2024 5:13 PM CDT [facility] POTASSIUM 3.6 3.5 - 5.1 mmol/L 04/18/2024 5:13 PM CDT [facility] CHLORIDE 107 98 - 107 mmol/L 04/18/2024 5:13 PM CDT [facility] CO2, VENOUS 22 22 - 30 mmol/L 04/18/2024 5:13 PM CDT [facility] ANION GAP 14.6 <18.0 mmol/L 04/18/2024 5:13 PM CDT [facility] GLUCOSE 105(H) 70 - 99 mg/dL 04/18/2024 5:13 PM CDT [facility] BUN 14 5 - 18 mg/dL 04/18/2024 5:13 PM CDT [facility] CREATININE, BLOOD 0.94 0.60 - 1.00 mg/dL 04/18/2024 5:13 PM CDT [facility] BUN/CREATININE RATIO 15 12 - 20 ratio 04/18/2024 5:13 PM CDT [facility] TOTAL PROTEIN 7.9 6.3 - 8.2 g/dL 04/18/2024 5:13 PM CDT [facility] ALBUMIN 4.3 3.5 - 5.0 g/dL 04/18/2024 5:13 PM CDT [facility] A/G RATIO 1.2 1.0 - 2.2 04/18/2024 5:13 PM CDT [facility] CALCIUM 9.9 8.7 - 10.5 mg/dL 04/18/2024 5:13 PM CDT [facility] T BILI 0.3 0.2 - 1.2 mg/dL 04/18/2024 5:13 PM CDT [facility] SGOT (AST) 24 5 - 34 U/L 04/18/2024 5:13 PM CDT [facility] SGPT (ALT) 30 0 - 55 U/L 04/18/2024 5:13 PM CDT [facility] ALKALINE PHOSPHATASE 47 40 - 150 U/L 04/18/2024 5:13 PM CDT [facility] GFR, ESTIMATED >60 >=60 04/18/2024 5:13 PM CDT [facility] Comment: Creatinine Clearance is the preferred criteria for selecting drug dose adjustments in renally impaired patients. ??The GFR is provided as additional pertinent clinical information. GFR is reported in mL/min/1.73 sq m. Calculation based on the Chronic Kidney Disease Epidemiology Collaboration (CKD- EPI) equation refit without adjustment for race. GFR, EST. >60 >=60 024 5:13 PM CDT [facility] GFR, EST. NONAFRICAN >60 >=60 04/18/2024 5:13 PM CDT [facility] Blood Venipuncture / Unknown 04/18/2024 4:28 PM CDT 04/18/2024 4:28 PM CDT us Markussarthak Finley MD CHEMISTRY ORDERABLES Fin al Result Performing Organization Address City/[facility]/ZIP Co de Phone Number [facility] [address] [place] [address] * (ABNORMAL) LACTATE DEHYDROGENASE (LD) (04/18/2024 4:28 PM CDT) LDH 229(H) 125 - 220 U/L 04/18/2024 5:13 PM CDT [facility] Blood Venipuncture / Unknown 04/18/2024 4:28 PM CDT 04/18/2024 4:28 PM CDT us Markus Finley MD CHEMISTRY ORDERABLES Fin al Result Performing Organization Address [facility] Co de Phone Number [facility] [address] [place] [address] documented in this encounter Visit Diagnoses Diagnosis Metastatic melanoma (HCC)- Primary Melanoma of skin, site unspecified documented in this encounter Care Teams Freight Trucker Relationship Specialty Start Date End Date Pritesh Chu MD [address] [place] [address] PCP - General Family Medicine 04/18/24 Markus Finley MD [address] [place] [address] Consulting Physician Medical Oncology 04/18/24 documented as of this encounter
--- OUTSIDE RECORDS SUMMARY | 2024-10-26 08:05 | XMS_ITS | Encounter Summary ---
Author Organization [facility] Address [address] [place] [address] Phone Care Team Providers Care County Nurse Name Role Phone Pritesh Chu MD Primary Care Provider [phone] Markus Finley MD Unavailable [phone] Encounter Details Date Type Department Care Team (Late st Contact Info) Description 05/02/2024 Documentation Only [facility] Oncology Services [address] [place] [phone] Markus Finley MD [address] [place] [address] Social History Tobacco Use Types Packs/Day Years [...] Pressure - - Pulse - - Temperature - - Respiratory Rate - - Oxygen Saturation - - Inhaled Oxygen Concentration - - Weight 133 kg (293 lb 4.8 oz) 05/02/2024 11:00 A M CDT Height 170.2 cm (5' 7 ) 05/02/2024 11:00 AM CDT Body Mass Index 45.94 05/02/2024 11:00 AM CDT documented in this encounter Miscellaneous Notes * Interdisciplinary - Sara Hansen, VIRGIE - 05/02/2024 12:48 PM CDT Computer assessment (called pt, no answer or answering machine) S: Diagnosis: metastatic melanoma Treatment Plan: Immunotherapy (opdivo/yervoy) Nutrition Problem: Increased nutrient needs R/T & evidenced by CA Dx & CA treatment. B: Home Diet: general Home oral supplement: unknown Nutrition Impact Symptoms: none noted Medical History: anxiety/depression, NAFLD Surgery: 06/14/23-Lt foot melanoma excision, 08/25/23-Lt groin Medications: tums, motrin, prolosec, junel Fe24 Vitamins: none listed Labs: 04/18/24-albumin=4.3, QM=542, Ad=369, K=3.6, EGFR>60 Initial Wt: 293# -05/01/2024 Height: 5' 7 BMI: 45.94 BMI weight range for height: 121-158# Adjusted BW: 170# EMR wt hx: 290# -04/18/2024 ([facility]) 288# 9oz-03/06/2024 290# -10/04/2023 285# - %Wt Loss: 0% Estimated needs:(based on adjusted BW) Calories: 8854-6164 (25-30kcal/kg) Protein: 77-100gm (1-1.3gm/kg) Fluids: 2300ml A: started immunotherapy 05/01/24; called pt no answer; Mailed information: Nutrition During Immunotherapy, Maximizing Nutrition During Treatment, Tips for Adding PRO, How to Make a Great Green Smoothie & Protein Smoothie. Goal: help to minimize nutrition related side effects to treatment. SARA HANSEN RD; 05/02/2024,2:30 PM CDT documented in this encounter Plan of Treatment Upcoming Encounters Date Type Department Care Team (Late st Contact Info) Description 11/15/2024 1:00 PM CLIN NURSE SPEC [facility] [address] [place] [address] Markus Finley MD [address] [place] [address] 11/15/2024 2:00 PM CLIN NURSE SPEC [facility]ment [facility] 1 [place] [address] Markus Finley MD [address] [place] [address] Discharge Disposition: Discharged to home or Selfcare documented as of this encounter Visit Diagnoses Not on filedocumented in this encounter Care Teams County Nurse Relationship Specialty Start Date End Date Pritesh Chu MD [address] [address] PCP - General Family Medicine 04/18/24 Markus Finley MD [address] [place] [address] Consulting Physician Medical Oncology 04/18/24 documented as of this encounter
--- OUTSIDE RECORDS SUMMARY | 2024-10-26 08:05 | XMS_ITS | Encounter Summary ---
Author Organization [facility] Address [address] [facility] [place] [address] Phone Care Team Providers Care Diversified Crops Farmer Name Role Phone Pritesh Chu MD Primary Care Provider [phone] Markus Finley MD Unavailable [phone] Encounter Details Date Type Department Care Team (Latest Contact Info) Description 04/19/2024 7:03 AM CDT - 04/19/2024 7:09 AM CDT Hospital Encounter [facility] Radiology Resources [address] [place] [phone] Markus Finley MD [address] [place] [address] Discharge Disposition: Discharged to home or Selfcare [...] st Contact Info) Description 11/15/2024 1:00 PM BROOMCORN THRESHER Lab [facility] [address] [place] [address] Markus Finley MD [address] [place] [address] 11/15/2024 2:00 PM BROOMCORN THRESHER [facility]ment [facility] [place] [address] Markus Finley MD [address] [place] [address] Discharge Disposition: Discharged to home or Selfcare documented as of this encounter Procedures Procedure Name Priority Date/Time Associated Diagnosis Comments PET REFERENCE IMAGES FOR IMPORT Routine 04/19/2024 7:03 AM CDT documented in this encounter Results * PET REFERENCE IMAGES FOR IMPORT (04/19/2024 7:03 AM CDT) Markus Finley MD [facility] [place] ORDERABLES Final Result documented in this encounter Visit Diagnoses Not on filedocumented in this encounter Care Teams Diversified Crops Farmer Relationship Specialty Start Date End Date Pritesh Chu MD [address] [place] [address] PCP - General Family Medicine 04/18/24 Markus Finley MD [address] [place] [address] Consulting Physician Medical Oncology 04/18/24 documented as of this encounter
--- OUTSIDE RECORDS SUMMARY | 2024-10-26 08:05 | XMS_ITS | Encounter Summary ---
Author Organization [facility] Care Team Providers Care Sports Medicine Specialist Name Role Phone Pritesh Chu MD Primary Care Provider [phone] Markus Finley MD Unavailable [phone] Encounter Details Date Type Department Care Team (Latest Contact Info) Description 05/01/2024 Travel Social History Tobacco Use Types Packs/Day [...] st Contact Info) Description 11/15/2024 1:00 PM RAIL TRANSIT OPERATOR Lab [facility] Laboratory Services 1 [place] [phone] Markus Finley MD [address] [place] [address] 11/15/2024 2:00 PM RAIL TRANSIT OPERATOR Appointment [facility] MRI [address] [place] [address] Markus Finley MD [address] [place] [address] Discharge Disposition: Discharged to home or Selfcare documented as of this encounter Visit Diagnoses Not on filedocumented in this encounter Care Teams Sports Medicine Specialist Relationship Specialty Start Date End Date Pritesh Chu MD [address] [address] PCP - General Family Medicine 04/18/24 Markus Finley MD [address] [place] [address] Consulting Physician Medical Oncology 04/18/24 documented as of this encounter
--- OUTSIDE RECORDS SUMMARY | 2024-10-26 08:05 | XMS_ITS | Encounter Summary ---
Author Organization [facility] Care Team Providers Care Motorcycle Designer Name Role Phone Pritesh Chu MD Primary Care Provider [phone] Markus Finley MD Unavailable [phone] Encounter Details Date Type Department Care Team (Latest Contact Info) Description 05/20/2024 Travel Social History Tobacco Use Types Packs/Day [...] st Contact Info) Description 11/15/2024 1:00 PM TURBINE SUBASSEMBLER Lab [facility] Laboratory Services [address] [place] [phone] Markus Finley MD [address] [place] [address] 11/15/2024 2:00 PM TURBINE SUBASSEMBLER Appointment [facility] MRI [address] [place] [address] Markus Finley MD [address] [place] [address] Discharge Disposition: Discharged to home or Selfcare documented as of this encounter Visit Diagnoses Not on filedocumented in this encounter Care Teams Motorcycle Designer Relationship Specialty Start Date End Date Pritesh Chu MD [address] [place] [address] PCP - General Family Medicine 04/18/24 Markus Finley MD [address] [place] [address] Consulting Physician Medical Oncology 04/18/24 documented as of this encounter
--- OUTSIDE RECORDS SUMMARY | 2024-10-26 08:05 | XMS_ITS | Encounter Summary ---
Author Organization [facility] Care Team Providers Care Hotel Or Motel Manager Name Role Phone Pritesh Chu MD Primary Care Provider [phone] Maruks Finley MD Unavailable [phone] Encounter Details Date Type Department Care Team (Latest Contact Info) Description 04/26/2024 Travel Social History Tobacco Use Types Packs/Day [...] st Contact Info) Description 11/15/2024 1:00 PM BOY'S ADVISER Lab [facility] Laboratory Services [address] [place] [phone] Markus Finley MD [address] [place] [address] 11/15/2024 2:00 PM BOY'S ADVISER Appointment [facility] MRI [address] [place] [address] Markus Finley MD [address] [place] [address] Discharge Disposition: Discharged to home or Selfcare documented as of this encounter Visit Diagnoses Not on filedocumented in this encounter Care Teams Hotel Or Motel Manager Relationship Specialty Start Date End Date Pritesh Chu MD [address] [address] PCP - General Family Medicine 04/18/24 Markus Finley MD [address] [place] [address] Consulting Physician Medical Oncology 04/18/24 documented as of this encounter
--- OUTSIDE RECORDS SUMMARY | 2024-10-26 08:05 | XMS_ITS | Encounter Summary ---
Author Organization [facility] Address [address] [facility] [place] [address] Phone Care Team Providers Care Stretcher Leveler Operator Name Role Phone Pritesh Chu MD Primary Care Provider [phone] Markus Finley MD Unavailable [phone] Reason for Visit * Reason Comments Follow-up Encounter Details Date Type Department Care Team (Late st Contact Info) Description 05/08/2024 2:15 PM CDT [facility] [address] [place] [phone] Jenn Medellin [place], PAC [address] [place] [address] Metastatic melanoma (HCC) (Primary Dx); Ringworm Discharge Disposition: Discharged to home or Selfcare [...] Sign Reading Time Taken Comments Blood Pressure 163/87 05/08/2024 2:20 PM CDT Pulse 79 05/08/2024 2:20 PM CDT Temperature 36.9 ??C (98.4 ??F) 05/08/2024 2:20 PM CD T Respiratory Rate 18 05/08/2024 2:20 PM CDT Oxygen Saturation 98% 05/08/2024 2:20 PM CDT Inhaled Oxygen Concentration - - Weight 134.9 kg (297 lb 4.8 oz) 05/08/2024 2:20 PM CDT Height 170.2 cm (5' 7 ) 05/08/2024 2:20 PM CDT Body Mass Index 46.56 05/08/2024 2:20 PM CDT documented in this encounter Patient Instructions * Patient Instructions* Jenn Medellin, PAC - 05/08/2024 2:15 PM CDT May use zmub-yfv-aigozhj antifungal cream to affected area 2-3 times per day. Apply sparingly. Allow area to breathe as possible. Continue healthy well-balanced diet and activity as tolerated. Proceed with labs and treatments as scheduled. Call or return sooner if any new or worsening problems. PLEASE READ: If you are required to have labs/ testing done PRIOR to follow up, please have testing completed nolater than 7 days prior to appointment. If you do not have testing completed prior to your scheduled follow-up appointment you will be asked to reschedule until testing completed All patients are expected to check in with registration 15 minutes prior to all appointments. Patients who arrive 15 minutes or more after their scheduled appointment time may be required to reschedule. Please schedule follow-up in near future to discuss any concerns that were not addressed fully at today's office visit. To continue to provide excellent patient care, you may receive a survey regarding your visit today.To help us serve you better, please complete and return. These surveys are completely anonymous. If you have any concerns/ questions regarding today's visit, please call. If you experience any new or worsening symptoms, please call or go to the emergency department. documented in this encounter Progress Notes * Jenn Medellin PAC - 05/08/2024 2:15 PM CDT Outpatient Hem/Onc Progress Note Dayanara Hilton is a 24 y.o. female who presents for follow-up for metastatic melanoma left lowerextremity, follow up after 1st chemotherapy treatment. She does report a bit of fatigue but otherwise states she has felt well. Does report a small red circular lesion to lower left abdomen. States it gets little redder when it is warm seems to come and go and fade at times. Offers no other concerns or complaints. Reports has not scheduled MRI of the brain at this time. Does plan to call today. ECO DIAGNOSIS/TREATMENT HISTORY: 06/14/2023 lesion left foot. [...] No current facility-administered medications for this visit. PMS/H: Past Medical History Positives Diagnosis Date Depression Melanoma (HCC) Miscarriage 07/09/2022 Miscarriage 12/2022 Non-alcoholic fatty liver disease Obesity Past Surgical History: Procedure Laterality Date APPENDECTOMY 2006 ONC ACCESS PORTACATH SKIN GRAFT 08/25/2023 SOCIAL: Social History Socioeconomic History Marital status: Single Spouse name: Not on file Number of children: Not on file Years of education: Not on file Highest education level: Not on file Occupational History Not on file Tobacco Use Smoking status: Former Current packs/day: 0.50 Average packs/day: 0.5 packs/day for 8.1 years (4.0 ttl pk-yrs) Types: Cigarettes Start date: 04/18/2016 [...] Chronic Obstructive Pulmonary Disease Father VITAL SIGNS: Vitals: 05/08/24 1420 BP: 163/87 BP Location: Right Arm BP Position: Sitting BP Cuff Size: Large Pulse: 79 Resp: 18 Temp: 98.4 ??F (36.9 ??C) SpO2: 98% Weight: 297 lb 4.8 oz (134.9 kg) Height: 5' 7 (1.702 m) GENERAL EXAM: GENERAL: Well developed, well nourished, obese, in no acute distress. AAO x3. Cooperative. HEENT: Normocephalic. PERRLA. Nonicteric. NECK: Supple/ non tender/ full ROM LYMPH NODES: No adenopathy. CARDIOVASCULAR: RRR/ S1S2/ No m/g/c/r. PULMONARY: Respirations easy and regular. Breath sounds clear bilaterally. No rhonchi/ rales/ wheezes. MUSCULOSKELETAL: Normal gait and movement of extremities. SKIN: General-warm, pink and dry. Small approximately 1.5 cm circular lesion with slightly erythematous border and pink center typical of tinea. PSYCHIATRIC: Euthymic. Affect congruent with mood. Normal thought process. PAIN ASSESSMENT: 0 Assessment: Diagnoses and all orders for this visit: Metastatic melanoma (HCC) Ringworm Plan: Reviewed and discussed above results. May use xfrn-ckt-ahlpkai antifungal cream to affected area 2-3 times per day. Apply sparingly. Allow area to breathe as possible. Continue healthy well-balanced diet and activity as tolerated. Proceed with labs and treatments as scheduled. Call or return sooner if any new or worsening problems. Diagnoses and all orders for this visit: Metastatic melanoma (HCC) Ringworm Return in about 8 weeks (around 07/03/2024) for Review labs/ tests after completed. The patient was given an opportunity to ask questions, and all questions answered to patient's satisfaction. Patient verbalizes understanding of the plan as outlined above. Patient Instructions May use jxpk-bgs-mexqbkf antifungal cream to affected area 2-3 times per day. Apply sparingly. Allow area to breathe as possible. Continue healthy well-balanced diet and activity as tolerated. Proceed with labs and treatments as scheduled. Call or return sooner if any new or worsening problems. PLEASE READ: If you are required to have labs/ testing done PRIOR to follow up, please have testing completed nolater than 7 days prior to appointment. If you do not have testing completed prior to your scheduled follow-up appointment you will be asked to reschedule until testing completed All patients are expected to check in with registration 15 minutes prior to all appointments. Patients who arrive 15 minutes or more after their scheduled appointment time may be required to reschedule. Please schedule follow-up in near future to discuss any concerns that were not addressed fully at today's office visit. To continue to provide excellent patient care, you may receive a survey regarding your visit today.To help us serve you better, please complete and return. These surveys are completely anonymous. If you have any concerns/ questions regarding today's visit, please call. If you experience any new or worsening symptoms, please call or go to the emergency department. documented in this encounter Miscellaneous Notes * Interdisciplinary - Sandra Mcclelland - 05/08/2024 2:15 PM CDT The patient reports occasional sharp pain in her right shoulder and axillary. Pain score is 0 during today's visit. * Interdisciplinary - Sandra Mcclelland - 05/08/2024 2:15 PM CDT AVS printed. Schedule already assigned during previous appointment. documented in this encounter Plan of Treatment Upcoming Encounters Date Type Department Care Team (Late st Contact Info) Description 11/15/2024 1:00 PM PARACHUTE CUSHION INSTALLER Lab [facility] Laboratory Services [address] [place] [address] Markus Finley MD [address] [place] [address] 11/15/2024 2:00 PM PARACHUTE CUSHION INSTALLER [facility]ointment [facility] MRI [address] [place] [address] Markus Finley MD [address] [place] [address] Discharge Disposition: Discharged to home or Selfcare documented as of this encounter Visit Diagnoses Diagnosis Metastatic melanoma (HCC)- Primary Melanoma of skin, site unspecified Ringworm Dermatophytosis of unspecified site documented in this encounter Care Teams Stretcher Leveler Operator Relationship Specialty Start Date End Date Pritesh Chu MD [address] [place] [address] PCP - General Family Medicine 04/18/24 Markus Finley MD [address] [place] [address] Consulting Physician Medical Oncology 04/18/24 documented as of this encounter
--- OUTSIDE RECORDS SUMMARY | 2024-10-26 08:05 | XMS_ITS | Encounter Summary ---
Author Organization [facility] Address [address] [facility] [place] [address] Phone Care Team Providers Care Access Developer Name Role Phone Pritesh Chu MD Primary Care Provider [phone] Markus Finley MD Unavailable [phone] Reason for Visit * Episode Based Medications (Routine) - Closed Specialty Diagnoses / Procedures Referred By Contross t Referred To Contact Diagnoses Metastatic melanoma (HCC) Markus Finley MD [address] [place] [address] Phone: tel: fax: [facility] Oncology Services [address] [place] [address] Phone: tel: fax: Referral ID Status Reason Start Date Expiration Date Visits Re quested Visits Authorized [id number] Closed 04/19/2024 1 30 Encounter Details Date Type Department Care Team (Late st Contact Info) Description 05/22/2024 10:00 AM CDT Clinical Support [facility] Oncology Services [address] [place] [address] Markus Finley MD [address] [place] [address] Metastatic melanoma (HCC) (Primary Dx) Discharge Disposition: [...] Sign Reading Time Taken Comments Blood Pressure 152/87 05/22/2024 10:25 AM CDT Pulse 80 05/22/2024 10:25 AM CDT Temperature 36.2 ??C (97.2 ??F) 05/22/2024 1 0:25 AM CDT Respiratory Rate 16 05/22/2024 10:2 5 AM CDT Oxygen Saturation 98% 05/22/2024 10: 25 AM CDT Inhaled Oxygen Concentration - - Weight 133.2 kg (293 lb 9.6 oz) 024 10:25 AM CDT Height - - Body Mass Index 45.98 05/08/2024 2:20 PM CDT documented in this encounter Miscellaneous Notes * Interdisciplinary - Carmina Porras RN - 05/22/2024 10:00 AM CDT Pt and SO ambulated back to treatment chair. Vitals and weight obtained. Discussed plan of care forthe day and educated on medication, verbalized understanding. Pt states she had some episodes of diarrhea after last infusion. Pt states she has increased her fruit and vegetable intake and unsure ifthis was a cause. Pt denies cramping or ABD pain. Educated pt to monitor symptoms and notify officeif the worsen or continue, pt verbalized understanding. Port accessed per policy, flushed easily, no blood return noted, not unusual for this port. Pt able to taste flush. Pt medicated per orders, tolerated well, no complaints throughout. Port deaccessed per policy, needle removed, and bandaid placed. Pt and SO ambulated out of treatment room in stable condition. documented in this encounter Plan of Treatment Upcoming Encounters Date Type Department Care Team (Late st Contact Info) Description 11/15/2024 1:00 PM HOME CARE ASSOCIATE [facility] [address] [place] [address] Markus Finley MD [address] [place] [address] 11/15/2024 2:00 PM HOME CARE ASSOCIATE [facility] [address] [place] [address] Markus Finley MD [address] [place] [address] Discharge Disposition: Discharged to home or Selfcare documented as of this encounter Visit Diagnoses Diagnosis Metastatic melanoma (HCC)- Primary Melanoma of skin, site unspecified documented in this encounter Administered Medications Inactive Administered Medications - up to 3 most recent administrations Medication Order MAR Action Action Date Dose Rate Site 0.9 % sodium chloride solution at 75 mL/hr, Intravenous, ONCE, 1 dose, On Tue05/22/24 at 1100Indications:Metastatic melanoma (HCC) New Bag 05/22/2024 10:56 AM CDT 75 mL/hr Heparin Na (Pork) Lock Flsh PF SOLN 50 Units 50 Units, Intravenous, PRN, Starting on Tue05/22/24 at 1033, Until Tue05/22/24 at 1620, Line Care, Line care per [facility].Indications:Metastatic melanoma (HCC) Given 05/22/2024 1:02 PM CDT 50 Units ipilimumab (YERVOY) 135 mg in sodium chloride 0.9 % 250 mL chemo IVPB 135 mg (rounded from 133.2 mg = 1 mg/kg ? 133.2 kg), Intravenous, ONCE, 1 dose, On Tue05/22/24 at 1100, Administer over 30 Minutes, Administer through a low protein binding 0.2 or 1.2 micron in-line filter. Do not administer other medications through the same IV line. Flush IV line at the end of the infusion.Indications:Metasta tic melanoma (HCC) 05/22/2024 11:40 AM CDT 135 mg nivolumab (Opdivo) 400 mg in sodium chloride 0.9 % 100 mL IVPB 400 mg (rounded from 399.6 mg = 3 mg/kg ? 133.2 kg), Intravenous, ONCE, 1 dose, On Tue05/22/24 at 1100, Administer over 30 Minutes, Administer nivolumab first, and promptly flush the line with saline prior to starting ipilimumab. Administer through a line with a sterile, nopyrogenic, low protein binding 0.2 to 1.2 micrometer in-line filter. Do not administer other medications through the same IV line. Flush IV line at the end of the infusion.Indications:Metasta tic melanoma (HCC) 05/22/2024 10:58 AM CDT 400 mg documented in this encounter Care Teams Access Developer Relationship Specialty Start Date End Date Pritesh Chu MD [address] [address] PCP - General Family Medicine 04/18/24 Markus Finley MD [address] [place] [address] Consulting Physician Medical Oncology 04/18/24 documented as of this encounter
--- OUTSIDE RECORDS SUMMARY | 2024-10-26 08:05 | XMS_ITS | Encounter Summary ---
Author Organization [facility] Address [address] [place] [address] Phone Care Team Providers Care Stock Worker Name Role Phone Pritesh Chu MD Primary Care Provider [phone] Markus Finley MD Unavailable [phone] Reason for Visit * Reason Comments Follow-up Encounter Details Date Type Department Care Team (Late st Contact Info) Description 04/26/2024 2:40 PM CDT [facility] [address] [place] [id number] Markus Finley MD [address] [place] [address] Metastatic melanoma (HCC) (Primary Dx) Discharge Disposition: [...] as of this encounter Progress Notes * Markus Finley MD - 04/26/2024 2:40 PM CDT OUTPATIENT HEMATOLOGY-ONCOLOGY PROGRESS NOTE Patient was assessed via telephone. Total time spent on this date of service was 6 minutes. Patientverbally consented for this service to be performed and billed. This visit was performed when I was physically located at clinic. The patient was at home. INTERVAL HISTORY Dayanara Hilton is a very pleasant 24 y.o. female seen for follow up of metastatic melanoma and discuss treatment options. She denies any new symptoms and is agreeable to start treatment. 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 Genetics Risk Assessment Discussed/N/A Allergies as of 04/26/2024 (No Known Allergies) REVIEW OF SYSTEMS Review [...] symptoms, labs, imaging and pathology results withpatient again. We discussed that she has metastatic melanoma with evidence of multiple subcut nodules throughout the left LE. Reviewed that this is not a surgical disease at this time given the multiplicity of the nodules. We need to start systemic therapy NATALIA and pending response, consider surgical excision of residual disease. Discussed immunotherapy regimen with Opdivo 3 mg/kg and Yervoy 1 mg/kg (flip dose regimen- shown better toxicity profile with similar outcomes of PFS and OS )given every 4 weeks IV in treatment of [...] prednisone +/- other immunosuppressant agents. Patient knows tocall us should they experience any new symptoms so it may be addressed rapidly. -- she is agreeable to proceed. Will start next week. 5. Encouraged Dayanara to eat a balanced diet and remain active as part of healthy lifestyle. She was encouraged to eat small meals frequently throughout the day to maintain intake and prevent weight loss while on treatment. Reviewed activities she can do to remain active, gradually increasing duration as stamina improves. . . Plan to start treatment on 05/01/24 FU 1 week after starting treatment The patient was given an opportunity to ask questions, and all questions answered to patient's satisfaction. Patient verbalizes understanding of the plan as outlined above. documented in this encounter Plan of Treatment Upcoming Encounters Date Type Department Care Team (Late st Contact Info) Description 11/15/2024 1:00 PM CHARGE ATTENDANT [facility] [address] [place] [address] Markus Finley MD [address] [place] [address] 11/15/2024 2:00 PM CHARGE ATTENDANT [facility]ointment [facility] [address] [place] [address] Markus Finley MD [address] [place] [address] Discharge Disposition: Discharged to home or Selfcare documented as of this encounter Visit Diagnoses Diagnosis Metastatic melanoma (HCC)- Primary Melanoma of skin, site unspecified documented in this encounter Care Teams Stock Worker Relationship Specialty Start Date End Date Pritesh Chu MD [address] [place] [address] PCP - General Family Medicine 04/18/24 Markus Finley MD [address] [place] [address] Consulting Physician Medical Oncology 04/18/24 documented as of this encounter
--- OUTSIDE RECORDS SUMMARY | 2024-10-26 08:19 | XMS_ITS | Encounter Summary ---
Author Organization [facility] [employer] [facility] Address [address] [place] [address] Care Team Providers Care Engineering Technician Name Role Phone Pritesh Chu MD Primary Care Provider [phone] Encounter Details Date Type Department Care Team (Late st Contact Info) Description 07/02/2024 Orders Only [facility] Oncology and Hematology - [place] [address] [place] [address] [address] [place] [address] Christopher Meeks MD [address] [facility] [address] [place] [address] Malignant melanoma of lower extremity, unspecified laterality Social History Tobacco Use Types Packs/Day Years Used Date Smoking Tobacco: Former Cigarettes Q uit: 12/2022 Smokeless Tobacco: Never Alcohol Use Standard Drinks/Week Comments Not Currently 0 (1 standard drink = 0.6 oz pur e alcohol) Sex and Gender Information Value Date Recorded Sex Assigned at Not on file Gender Identity Not on file Sexual Orientation Not on file documented as of this encounter Plan of Treatment Not on file documented as of this encounter Visit Diagnoses Diagnosis Malignant melanoma of lower extremity, unspecified laterality documented in this encounter Care Teams Engineering Technician Relationship Specialty Start Date End Date Pritesh Chu MD [address] [place] [address] PCP - General Family Practice 09/13/23 documented as of this encounter
--- OUTSIDE RECORDS SUMMARY | 2024-10-26 08:19 | XMS_ITS | Encounter Summary ---
Author Organization [facility] [employer] [facility] Address [address] [place] [address] Care Team Providers Care Custom Feed Corn Operator Name Role Phone Pritesh Chu MD Primary Care Provider [phone] Encounter Details Date Type Department Care Team (Late st Contact Info) Description 02/13/[address] [facility] Oncology and Hematology - [place] [address] [place] [address] [address] [place] [address] Christopher Meeks MD [address] [facility] [address] [place] [address] Malignant melanoma of lower extremity, [...] laterality documented in this encounter Care Teams Custom Feed Corn Operator Relationship Specialty Start Date End Date Pritesh Chu MD [address] [place] [address] PCP - General Family Practice 09/13/23 documented as of this encounter
--- OUTSIDE RECORDS SUMMARY | 2024-10-26 08:19 | XMS_ITS | Encounter Summary ---
Author Organization [employer] [facility] Address [address] [place] [address] [address] [place] [address] Phone Care Team Providers Care Emt Basic Name Role Phone Pritesh Chu MD Primary Care Provider [phone] Encounter Details Date Type Department Care Team (Late st Contact Info) Description 08/01/2024 Documentation Only [place] [employer] [facility] [address] [facility] [address] [place] [address] Urbano Quiñonez MD [address] [place] [address] [address] [place], [place] [id number] Social History Tobacco Use Types Packs/Day Years Used Date Smoking Tobacco: Never Assessed Comments Unknown Sex and Gender Information Value Date Recorded Sex Assigned at Not on file Legal Sex Female 3:09 PM EDT Gender Identity Not on file Sexual Orientation Not on file documented as of this encounter Plan of Treatment Not on file documented as of this encounter Visit Diagnoses Not on filedocumented in this encounter Care Teams Emt Basic Relationship Specialty Start Date End Date Pritesh Chu MD [address] [place] [address] PCP - General Family Medicine 07/29/24 documented as of this encounter
--- OUTSIDE RECORDS SUMMARY | 2024-10-26 08:19 | XMS_ITS | Encounter Summary ---
Author Organization [facility] [employer] [facility] Address [address] [place] [address] Care Team Providers Care Casting Chipper Name Role Phone Pritesh Chu MD Primary Care Provider [phone] Encounter Details Date Type Department Care Team (Late st Contact Info) Description 09/20/2023 Orders Only [facility] Oncology and Hematology - [place] [address] [facility] [address] [place] [address] Christopher Meeks MD [address] [facility] [address] [place] [address] Malignant melanoma of lower extremity, unspecified laterality (Primary Dx); Need for hepatitis B screening test Social History Tobacco Use Types Packs/Day Years [...] as of this encounter Plan of Treatment Scheduled Orders Name Type Priority Associated Diagnoses Orde r Schedule QUANTIFERON TB GOLD Lab Routine Need for hepatitis B screening test Expected: 09/20/2023, Expires: 09/20/2024 HEPATITIS B SURFACE ANTIGEN Lab Routine Need for hepatitis B screening test Expected: 09/20/2023, Expires: 09/20/2024 documented as of this encounter Visit Diagnoses Diagnosis Malignant melanoma of lower extremity, unspecified laterality- Primary Need for hepatitis B screening test documented in this encounter Care Teams Casting Chipper Relationship Specialty Start Date End Date Pritesh Chu MD [address] [place] [address] PCP - General Family Practice 09/13/23 documented as of this encounter
--- OUTSIDE RECORDS SUMMARY | 2024-10-26 08:19 | XMS_ITS | Encounter Summary ---
Author Organization [facility] Address [address] [place] [address] Care Team Providers Care Toll Line Inspector Name Role Phone Pritesh Chu MD Primary Care Provider [phone] Encounter Details Date Type Department Care Team (Late st Contact Info) Description 12/02/2023 External Device Data STL ABSTRACTION Provider, Abstract NO ADDRESS ON FILE Social History Tobacco Use Types Packs/Day Years [...] on filedocumented in this encounter Care Teams Toll Line Inspector Relationship Specialty Start Date End Date Pritesh Chu MD [address] [place] [address] PCP - General Family Practice 09/13/23 documented as of this encounter
--- OUTSIDE RECORDS SUMMARY | 2024-10-26 08:19 | XMS_ITS | Encounter Summary ---
Author Organization [facility] Address [address] [place] [address] Care Team Providers Care Wool Sorter Name Role Phone Pritesh Chu MD Primary Care Provider [phone] Encounter Details Date Type Department Care Team (Late st Contact Info) Description 06/27/2024 External Device Data STL ABSTRACTION Provider, Abstract [...] on filedocumented in this encounter Care Teams Wool Sorter Relationship Specialty Start Date End Date Pritesh Chu MD [address] [place] [address] PCP - General Family Practice 09/13/23 documented as of this encounter
--- OUTSIDE RECORDS SUMMARY | 2024-10-26 08:19 | XMS_ITS | Encounter Summary ---
Author Organization [facility] Address [address] [place] [address] Care Team Providers Care Ceo Name Role Phone Pritesh Chu MD Primary Care Provider [phone] Encounter Details Date Type Department Care Team [...] on filedocumented in this encounter Care Teams Ceo Relationship Specialty Start Date End Date Pritesh Chu MD [address] [place] [address] PCP - General Family Practice 09/13/23 documented as of this encounter
--- OUTSIDE RECORDS SUMMARY | 2024-10-26 08:19 | XMS_ITS | Encounter Summary ---
Author Organization [facility] [employer] [facility] Address [address] [place] [address] Care Team Providers Care Casing Sewer Name Role Phone Pritesh Chu MD Primary Care Provider [phone] Encounter Details Date Type Department Care Team (Late st Contact Info) Description 10/08/2024 Orders Only [facility] Oncology and Hematology - [place] [address] [place] [address] [address] [place] [address] Christopher Meeks MD [address] [facility] [address] [place] [address] Malignant melanoma of lower extremity, [...] laterality documented in this encounter Care Teams Casing Sewer Relationship Specialty Start Date End Date Pritesh Chu MD [address] [place] [address] PCP - General Family Practice 09/13/23 documented as of this encounter
--- OUTSIDE RECORDS SUMMARY | 2024-10-26 08:19 | XMS_ITS | Encounter Summary ---
Author Organization [facility] Address [address] [place] [address] Care Team Providers Care Auto Body Repair Technician Name Role Phone Pritesh Chu MD Primary Care Provider [phone] Encounter Details Date Type Department Care Team (Late st Contact Info) Description 06/26/2024 External Device Data STL ABSTRACTION Provider, Abstract [...] filedocumented in this encounter Care Teams Auto Body Repair Technician Relationship Specialty Start Date End Date Pritesh Chu MD [address] [place] [address] PCP - General Family Practice 09/13/23 documented as of this encounter
--- OUTSIDE RECORDS SUMMARY | 2024-10-26 08:19 | XMS_ITS | Encounter Summary ---
Author Organization [facility] [employer] [facility] Address [address] [place] [address] Care Team Providers Care Subscription Agent Name Role Phone Pritesh Chu MD Primary Care Provider [phone] Reason for Visit * Reason Onset Date Comments PET Scan info 09/21/2023 LVM about resche duled PET Scan appt.09/27/23 @ 2pm (1:30pm arrival)6hr fast, water ok Encounter Details Date Type Department Care Team (Late st Contact Info) Description 09/21/2023 Telephone [facility] Oncology and Hematology - [place] [address] [place] [address] [facility] [address] [place] [address] Christopher Meeks MD [address] [facility] [address] [place] [address] PET Scan info (LVM about rescheduled PET Scan appt./09/27/23 @ 2pm (1:30pm arrival)/6hr fast, water ok /) Social History Tobacco Use Types Packs/Day Years [...] on file documented as of this encounter Miscellaneous Notes * Telephone Encounter - Celena Knapp - 09/21/2023 3:44 PM CST LVM about rescheduled PET Scan appt. 09/27/23 @ 2pm (1:30pm arrival) 6hr fast, water ok [employer] JUD[employer] documented in this encounter Plan of Treatment Not on file documented as of this encounter Visit Diagnoses Not on filedocumented in this encounter Care Teams Subscription Agent Relationship Specialty Start Date End Date Pritesh Chu MD [address] [place] [address] PCP - General Family Practice 09/13/23 documented as of this encounter
--- OUTSIDE RECORDS SUMMARY | 2024-10-26 08:19 | XMS_ITS | Encounter Summary ---
Author Organization [facility] [employer] [facility] Address [address] [place] [address] Care Team Providers Care Shipping And Receiving Assistant Name Role Phone Pritesh Chu MD Primary Care Provider Encounter Details Date Type Department Care Team (Late st Contact Info) Description 04/04/2024 Orders Only [facility] Oncology and Hematology - [place] [address] [facility] [address] [place] [address] Christopher Meeks MD [address] [facility] [address] [place] [address] Social History Tobacco Use Types Packs/Day Years [...] Procedure Name Priority Date/Time Associated Diagnosis Comments GLUCOSE LEVEL Routine 04/03/2024 1:10 PM CDT documented in this encounter Results * GLUCOSE LEVEL (04/03/2024 1:10 PM CDT) Blood Christopher Meeks MD CHEMISTRY ORDERABLES documented in this encounter Visit Diagnoses Not on filedocumented in this encounter Care Teams Shipping And Receiving Assistant Relationship Specialty Start Date End Date Pritesh Chu MD [address] [place] [address] PCP - General Family Practice 09/13/23 documented as of this encounter
--- OUTSIDE RECORDS SUMMARY | 2024-10-26 08:19 | XMS_ITS | Encounter Summary ---
Author Organization [facility] [employer] Address [address] [place] [address] Care Team Providers Care Doctor Of Naturopathic Medicine Name Role Phone Pritesh Chu MD Primary Care Provider [phone] Encounter Details Date Type Department Care Team (Late st Contact Info) Description 04/05/2024 Orders Only [facility] Oncology and Hematology - [place] [address] [facility] [address] [place] [address] Christopher Meeks MD [address] [facility] [address] [place] [address] Social History Tobacco Use Types [...] Name Priority Date/Time Associated Diagnosis Comments PET BONE IMG W CT SKL BSE MID THG Routine 04/03/2024 11:25 AM CDT documented in this encounter Results * PET BONE IMG W CT SKB MDTH (04/03/2024 11:25 AM CDT) Anatomical Region Laterality Modality Other Christopher Meeks MD PE ORDERABLES documented in this encounter Visit Diagnoses Not on filedocumented in this encounter Care Teams Doctor Of Naturopathic Medicine Relationship Specialty Start Date End Date Pritesh Chu MD [address] [place] [address] PCP - General Family Practice 09/13/23 documented as of this encounter
--- OUTSIDE RECORDS SUMMARY | 2024-10-26 08:19 | XMS_ITS | Encounter Summary ---
Author Organization [facility] Address [address] [place] [address] Care Team Providers Care Plastic Fabricator Name Role Phone Pritesh Chu MD Primary Care Provider [phone] Encounter Details Date Type Department Care Team (Latest Contact Info) Description 08/23/2024 Travel Social History Tobacco Use Types Packs/Day [...] on filedocumented in this encounter Care Teams Plastic Fabricator Relationship Specialty Start Date End Date Pritesh Chu MD [address] [address] [place] [address] PCP - General Family Medicine 07/29/24 documented as of this encounter
--- OUTSIDE RECORDS SUMMARY | 2024-10-26 08:19 | XMS_ITS | Encounter Summary ---
Author Organization [facility] [employer] [facility] Address [address] [place] [address] Care Team Providers Care Vault Clerk Name Role Phone Pritesh Chu MD Primary Care Provider [phone] Encounter Details Date Type Department Care Team (Late st Contact Info) Description 03/12/2024 Orders Only [facility] Oncology and Hematology - [place] [address] [facility] [address] [place] [address] Christopher Meeks MD [address] [facility] [address] [place] [address] Malignant melanoma of lower extremity, [...] laterality documented in this encounter Care Teams Vault Clerk Relationship Specialty Start Date End Date Pritesh Chu MD [address] [place] [address] PCP - General Family Practice 09/13/23 documented as of this encounter
--- OUTSIDE RECORDS SUMMARY | 2024-10-26 08:19 | XMS_ITS | Encounter Summary ---
Author Organization [facility] Address [address] [place] [address] Care Team Providers Care Help Desk Representative Name Role Phone Pritesh Chu MD Primary Care Provider [phone] Reason for Referral * Eval and Treat (Routine) - Closed Specialty Diagnoses / Procedures Referred By Delbert villareal Referred To Contact Surgery / Surgical Oncology Diagnoses Malignant melanoma of lower extremity, unspecified laterality Procedures AR OFFICE/OUTPATIENT ESTABLISHED MOD MDM 30 MIN AR OFFICE/OUTPATIENT NEW MODERATE MDM 45 MINUTES Christopher Meeks MD [address] [place] [address] [facility] [id number] [place] [address] [place] [phone] Referral ID Status Reason Start Date Expiration Date V isits Requested Visits Authorized [id number] Closed CRS to Schedule 03/06/2024 03/06/2025 1 1 * PET Scan (Routine) - Closed Specialty Diagnoses / Procedures Referred By Delbert villareal Referred To Contact Diagnoses Malignant melanoma of lower extremity, unspecified laterality Procedures PET TUMOR IMG W CT SKB MDTH CHG PET IMAGING CT ATTENUATION SKULL BASE MID-THIGH AR F18 FDG Christopher Meeks MD [address] [place] [phone] [place] [address] Referral ID Status Reason Start Date Expiration Date V isits Requested Visits Authorized [id number] Closed STL CTS 03/19/2024 03/19/2025 1 1 Reason for Visit * Reason Comments Follow Up Cancer Encounter Details Date Type Department Care Team (Late st Contact Info) Description 03/06/2024 9:45 AM CDT Office Visit [facility] Oncology and Hematology - [place] [address] [facility] [address] [place] [address] Christopher Meeks MD [address] [facility] [address] [place] [address] Malignant melanoma of lower extremity, unspecified laterality (Primary Dx) Social History Tobacco Use Types Packs/Day Years Used Date Smoking Tobacco: Former Cigarettes Q uit: 12/2022 Smokeless Tobacco: Never Tobacco Cessation:Counseling Given: Not [...] Sign Reading Time Taken Comments Blood Pressure 149/108 03/06/2024 9:43 AM CDT Pulse 82 03/06/2024 9:40 AM CDT Temperature 36.2 ??C (97.1 ??F) 03/06/2024 9:40 AM CD T Respiratory Rate 18 03/06/2024 9:40 AM CDT Oxygen Saturation 95% 03/06/2024 9:40 AM CDT Inhaled Oxygen Concentration - - Weight 130.9 kg (288 lb 9.6 oz) 03/06/2024 9:40 AM CDT Height - - Body Mass Index 45.2 09/13/2023 8:48 AM MICROBIOLOGY INSTRUCTOR documented in this encounter Progress Notes * Christopher Meeks MD - 03/06/2024 10:37 AM CDT HEMATOLOGY / ONCOLOGY PROGRESS NOTE Patient Identification: Name: Dayanara Hilton Age: 23 y.o. 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 Nodular type with no ulceration. Maximum thickness 6.1 mm with the tissue resected initially in June 14, 2023. Currently specimen showed thickness of 3.3 mm. No lymphovascular invasion. Closest margin to invasive melanoma 0.08 mm. Excision of the left foot lesion in office June 14, 2023 Surgery for left foot dorsal melanoma, sentinel lymph node biopsy and full- thickness skin graft August 25, 2023. Reexcision of the left foot dorsal lesion in office February 20, 2024 SUBJECTIVE Patient to the office after the reexcision of the relapsed melanoma was performed on February 19. She lost follow-up after the initial visit went she was referred for port placement and to start treatment with durvalumab. She is back in the office today. Review of system Constitutional: Patient did not mention fevers, sweats, fatigue, malaise, weight loss HEENT: Patient did not mention sinus congestion, hearing or vision problems Respiratory: Patient did not mention cough, dyspnea, wheeze Cardiovascular: Patient did not mention chest pain, exertional chest pressure/discomfort, nausea, syncope, shortness of breath GI: Patient did not mention constipation, diarrhea, dsyphagia, reflux symptoms, vomiting, melena : Patient did not mention dysuria, frequency, incontinence, urgency Integumentary system: no lymphadenopathy, sweats, flushing Musculoskeletal: Patient not mention: myalgia, arthralgia Neurological: Patient did not mention blurry or disturbed vision, numbness/weakness, dizziness Skin: No lumps, bumps or rashes. 12 review of system was reviewed Objective: Vital signs in last 24 hours: As per nursing note Exam: General appearance: alert, cooperative, no distress, appears stated age Head: normocephalic, without obvious abnormality, atraumatic Eyes: conjunctivae/corneas clear, EOM's intact Ears: normal external ear canals AU Nose: Nares normal. Septum midline. Mucosa normal. No drainage or sinus tenderness Throat: Lips, mucosa, and tongue normal. Teeth and gums normal Neck: supple, symmetrical, trachea midline. Lungs: clear to auscultation bilaterally Heart: regular rate and rhythm, S1, S2 normal, no murmur, click, rub or gallop Abdomen: soft, non-tender. Bowel sounds normal. No masses, No organomegaly Extremities: extremities normal, atraumatic, no cyanosis or edema Skin: Skin color, texture, turgor normal. Site of melanoma excision from the left dorsum of the foot noted. Lymph nodes: No lymphadenopathy Neuro: No obvious focal deficit Exam as above PATH LABS Labs from September 20 showed WBC 7.1 hemoglobin 14.1 platelet 277,000. @IMAGEIMP@ Assessment: Plan: There are no problems to display for this patient. T4b N2 MX stage IIIC malignant melanoma status post wide excision and sentinel lymph node biopsy involving the left groin done on August 25, 2023 that came back positive for 2 lymph nodes involving the lateral and vertical superficial left groin lymph node. Previous to that patient hadleft foot lesion excision done on June 14, 2023 that showed ulcerated malignant melanoma 6.1 mm thickness with deep margins 2.2 mm from the melanoma. PET scan done on September 27 showed changes of melanoma resection and grafting of the left foot andleft inguinal lymph node dissection without evidence of metastatic disease. Events noted. Patient had relapsed melanoma resected on February 19 from the dorsum of the foot just slightly above the initial melanoma resection on August 25, 2023. Current pathology from February 19 showed residual/recurrent melanoma margins negative. Nodular type with no ulceration. Maximum thickness 6.1 mm with the tissue resected initially in June 14, 2023. Currently specimen showed thickness of 3.3 mm. No lymphovascular invasion. Closest margin to invasive melanoma 0.08 mm. We would recommend 2 cm margin for relapse melanoma of 3.3 mm thick. Current margins are very close. Patient already had full-thickness skin graft after the excision done August 25, 2023. I will refer her to Dr. Riley for surgical oncology consultation for sentinel lymph node excision and wide excision of the relapsed melanoma. We will also order PET scan to find out the extent of the relapse. Based on the PET scan and surgical oncology consultation we will decide subsequent management. I have answered all the questions to patient satisfaction. TOBACCO COUNSELING She is not a tobacco/nicotine user. 03/06/2024 Christopher Meeks MD documented in this encounter Plan of Treatment Scheduled Orders Name Type Priority Associated Diagnoses Orde r Schedule PET TUMOR IMG W CT SKB MDTH Imaging Routine Malignant melanoma of lower extremity, unspecified laterality Expected: 03/07/2024, Expires: 03/06/2025 Scheduled Referrals Name Type Priority Associated Diagnoses Orde r Schedule AMB REFERRAL TO SURGICAL ONCOLOGY Outpatient Referral Routine Malignant melanoma of lower extremity, unspecified laterality Ordered: 03/06/2024 documented as of this encounter Visit Diagnoses Diagnosis Malignant melanoma of lower extremity, unspecified laterality- Primary documented in this encounter Care Teams Help Desk Representative Relationship Specialty Start Date End Date Pritesh Chu MD [address] [place] [address] PCP - General Family Practice 09/13/23 documented as of this encounter
--- OUTSIDE RECORDS SUMMARY | 2024-10-26 08:19 | XMS_ITS | Encounter Summary ---
Author Organization [facility] Address [address] [place] [address] Care Team Providers Care Hospital Account Manager Name Role Phone Pritesh Chu MD Primary Care Provider [phone] Reason for Referral * Eval and Treat (Routine) - Closed Specialty Diagnoses / Procedures Referred By Contac t Referred To Contact Surgery Diagnoses Malignant melanoma of lower extremity, unspecified laterality Procedures ID OFFICE/OUTPATIENT ESTABLISHED MOD MDM 30-39 MIN ID OFFICE/OUTPATIENT NEW MODERATE MDM 45-59 MINUTES Christopher Meeks MD [address] [place] [address] Maikol Alonso MD NO ADDRESS ON FILE Referral ID Status Reason Start Date Expiration Date V isits Requested Visits Authorized [id number] Closed STL CTS 09/13/2023 09/12/2024 1 1 HER VOCAL * Eval and Treat (Routine) - Closed Specialty Diagnoses / Procedures Referred By Contac t Referred To Contact Oncology Diagnoses Malignant melanoma of lower extremity, unspecified laterality Procedures ID OFFICE/OUTPATIENT ESTABLISHED MOD MDM 30-39 MIN ID OFFICE/OUTPATIENT NEW MODERATE MDM 45-59 MINUTES Christopher Meeks MD [address] [place] [phone] Referral ID Status Reason Start Date Expiration Date V isits Requested Visits Authorized [id number] Closed STL CTS 09/13/2023 09/13/2024 1 1 HER VOCAL Reason for Visit * Reason Comments Establish Care Encounter Details Date Type Department Care Team (Late st Contact Info) Description 09/13/2023 8:30 AM TEACHER VOCAL Office Visit [facility] Oncology and Hematology - [place] [address] [facility] [address] [place] [address] Christopher Meeks MD [address] [facility] [address] [place] [address] Malignant melanoma of lower extremity, [...] Sign Reading Time Taken Comments Blood Pressure 144/91 09/13/2023 8:50 AM TEACHER VOCAL Pulse 88 09/13/2023 8:48 AM TEACHER VOCAL Temperature 36.5 ??C (97.7 ??F) 09/13/2023 8:48 AM CS T Respiratory Rate 10 09/13/2023 8:48 AM TEACHER VOCAL Oxygen Saturation 100% 09/13/2023 8:48 AM TEACHER VOCAL Inhaled Oxygen Concentration - - Weight 129.3 kg (285 lb) 09/13/2023 8:48 AM TEACHER VOCAL Height 170.2 cm (5' 7 ) 09/13/2023 8:48 AM TEACHER VOCAL Body Mass Index 44.64 09/13/2023 8:48 AM TEACHER VOCAL documented in this encounter Progress Notes * Christopher Meeks MD - 09/13/2023 9:24 AM CST Hematology-oncology consult Note Requesting Physician Jonel De MD Primary Care Physician Pritesh Chu MD Problem list There is no problem list on file for this patient. Previous TREATMENT ? Measurable Disease ? Reason for Visit Dayanara Hilton is a 23 y.o. female who was referred for consultation for malignant melanoma. History of present illness This is a pleasant 23-year-old obese female with been in good health developed enlarging left foot mole about 1 and half years ago. She describes that that mole got filled with the blood and decided to see primary care doctor who referred her to Dr. De. She she had left foot lesion excision done on June 14, 2023 that showed ulcerated malignant melanoma 6.1 mm thickness with deep margins 2.2 mm from the melanoma. Patient underwent wide excision and sentinel lymph node biopsy on August 25, 2023 that showed no residual melanoma on the wide excision and lymph node positive involving lateral superficial left groin and left groin superficial vertical with metastatic melanoma. She is recovering from the surgery. She denies any previous history of malignancy. There is no significant family history of malignancy as well. Father has prostate cancer. Past Medical History Past Medical History: Diagnosis Date Depression Malignant neoplasm of skin Surgical History Past Surgical History: Procedure Laterality Date HX APPENDECTOMY HX LYMPH NODE BIOPSY HX SKIN GRAFT SPLIT THICKNESS LEG / FOOT Medications Current Outpatient Medications Medication Sig Dispense Refill acetaminophen-codeine (TYLENOL #2) 300-15 mg tablet Take 1 Tablet by mouth every 6 hours as needed for Pain. norethindrn a-e estradiol-iron (11/26, ,) 1 mg-20 mcg (21)/75 mg (7) tablet Take 1 Tabletby mouth daily. No current facility-administered medications for this visit. Allergies No Known Allergies Immunizations: There is no immunization history on file for this patient. Family History Family History Problem Relation Name Age of Onset Prostate Cancer Father Social History Social History Tobacco Use Smoking status: Former Types: Cigarettes Quit date: 12/2022 Years since quittin.7 Smokeless tobacco: Never Substance Use Topics Alcohol use: Not Currently Review of Systems Constitutional: Patient did not mention fever; no night sweats; no anorexia; no weight loss; no fatique NEENT: Patient did not mention headache; no change in vision; no change in hearing; no sore throat;no dysphagia Respiratory: Patient did not mention shortness of breath; no pleuritic chest pain; no cough; no hemoptysis Cardiac: Patient did not mention cardiac-like chest pain; no palpitations; no orthopnea; no PND; noDOE Breasts: Patient did not mention tenderness; no masses GI: Patient did not mention abdominal pain; no nausea; no vomiting; no diarrhea; no hematochezia; no melena : Patient did not mention dysuria; no frequency; no hesitancy; no hematuria CORE FILER: Musculosketetal: Patient did not mention bone pain; no arthralgia; no joint swelling; no myalgia; Skin: Patient did not mention pruritis; no rash; no petechiae; no ecchymoses Endocrine: Patient did not mention polydipsia; no polyuria; no unusual weight gain Neuro: Patient did not mention headache; no change in vision; no sensory changes; no muscle weakness; no confusion; no seizures Psych: Patient did not mention anxiety; no depression; Physical Exam Vitals: As per nursing note Constitutional: Well developed, well nourished, no acute distress, non-toxic appearance Teeth and gum. No signs of infection or swelling. Eyes: PERRL, conjunctiva normal HEENT: Atraumatic, external ears normal, nose normal, oropharynx moist, no pharyngeal exudates. no sinus tenderness Neck- normal range of motion, no tenderness, supple Respiratory: No respiratory distress, normal breath sounds, no rales, no wheezing Cardiovascular: Normal rate, normal rhythm, no murmurs, no gallops, no rubs GI: Soft, nondistended, normal bowel sounds, nontender, no splenomegaly, no hepatomegaly, no mass, no rebound, no guarding : No costovertebral angle tenderness Musculoskeletal: No edema, no tenderness, no deformities. Back- no tenderness Integument: Well hydrated, no rash, Digits and nails inspection normal Lymphatic: No lymphadenopathy noted Neurologic: Alert & oriented x 3, CN 2-12 normal, normal motor function, normal sensory function, no focal deficits noted Psychiatric: Speech and behavior appropriate ? labs No results found for this or any previous visit (from the past 24 hour(s)). Pathology ? Imaging & Other Studies Performance Status? ECOG performance status 0 Assessment / Plan: ? T4b N2 MX stage IIIC malignant melanoma [...] deep margins 2.2 mm from the melanoma. I have discussed the NCCN guidelines regarding the managementof his stage IIIc melanoma. I will order complete staging work-up with a PET scan. I would recommend adjuvant immunotherapy with nivolumab starting in next couple of weeks. Patient will be referred for port placement as well as chemotherapy teaching. I will order baseline labs including CBC, CMP and LDH. I will see her back in couple of weeks to start treatment and discussed the PET scan. I have answered all the questions to patient satisfaction. Thank you very much for allowing me to participate in Dayanara Hilton's evaluation and management. Please feel free to contact if I can be of any further assistance in your patient???s care requiring hematology or oncology evaluation. Sincerely, ? ? Christopher Meeks M.D. cell TOBACCO COUNSELING She is not a tobacco/nicotine user. Christopher Meeks MD ,09/13/2023 9:24 AM ? Total time spent 60 minutes, two third of the total time spent counseling patient [id number]. CC:?Requesting Physician Jonel De MD Primary Care Physician Pritesh Chu MD HER VOCAL documented in this encounter Plan of Treatment Scheduled Referrals Name Type Priority Associated Diagnoses Orde r Schedule AMB REFERRAL TO CHEMO TEACHING Outpatient Referral Routine Malignant melanoma of lower extremity, unspecified laterality Ordered: 09/13/2023 AMB REFERRAL TO GENERAL SURGERY Outpatient Referral Routine Malignant melanoma of lower extremity, unspecified laterality Ordered: 09/13/2023 documented as of this encounter Visit Diagnoses Diagnosis Malignant melanoma of lower extremity, unspecified laterality- Primary documented in this encounter Care Teams Hospital Account Manager Relationship Specialty Start Date End Date Pritesh Chu MD [address] [place] [phone] PCP - General Family Practice 09/13/23 documented as of this encounter
--- OUTSIDE RECORDS SUMMARY | 2024-10-26 08:19 | XMS_ITS | Encounter Summary ---
Author Organization [facility] [employer] [facility] Address [address] [place] [address] Care Team Providers Care Hub Bander Name Role Phone Pritesh Chu MD Primary Care Provider [phone] Encounter Details Date Type Department Care Team (Late st Contact Info) Description 07/16/2024 Orders Only [facility] Oncology and Hematology - [place] [address] [facility] [address] [place] [address] Christopher Meeks MD [address] [facility] [address] [place] [address] Malignant melanoma of lower extremity, [...] laterality documented in this encounter Care Teams Hub Bander Relationship Specialty Start Date End Date Pritesh Chu MD [address] [place] [address] PCP - General Family Practice 09/13/23 documented as of this encounter
--- OUTSIDE RECORDS SUMMARY | 2024-10-26 08:19 | XMS_ITS | Encounter Summary ---
Author Organization [facility] Address [address] [place] [address] Care Team Providers Care Residential Real Estate Agent Name Role Phone Pritesh Chu MD Primary Care Provider [phone] Encounter Details Date Type Department Care Team (Late st Contact Info) Description 07/24/2024 External Device Data STL ABSTRACTION Provider, Abstract [...] on filedocumented in this encounter Care Teams Residential Real Estate Agent Relationship Specialty Start Date End Date Pritesh Chu MD [address] [place] [address] PCP - General Family Practice 09/13/23 documented as of this encounter
--- OUTSIDE RECORDS SUMMARY | 2024-10-26 08:19 | XMS_ITS | Encounter Summary ---
Author Organization [facility] [address] [facility] Address [address] [place] [address] Care Team Providers Care Funeral Planning Counselor Name Role Phone Pritesh Chu MD Primary Care Provider [phone] Encounter Details Date Type Department Care Team (Late st Contact Info) Description 09/10/2024 Orders Only [facility] Oncology and Hematology - [place] [address] [place] [address] [address] [place] [address] Christopher Meeks MD [address] [facility] [address] [place] [address] Malignant melanoma of lower extremity, [...] laterality documented in this encounter Care Teams Funeral Planning Counselor Relationship Specialty Start Date End Date Pritesh Chu MD [address] [place] [address] PCP - General Family Practice 09/13/23 documented as of this encounter
--- OUTSIDE RECORDS SUMMARY | 2024-10-26 08:19 | XMS_ITS | Encounter Summary ---
Author Organization [facility] Address [address] [place] [address] Care Team Providers Care Bingo Manager Name Role Phone Pritesh Chu MD Primary Care Provider [phone] Encounter Details Date Type Department Care Team (Late st Contact Info) Description 05/08/2024 External Device Data STL ABSTRACTION Provider, Abstract [...] on filedocumented in this encounter Care Teams Bingo Manager Relationship Specialty Start Date End Date Pritesh Chu MD [address] [place] [address] PCP - General Family Practice 09/13/23 documented as of this encounter
--- OUTSIDE RECORDS SUMMARY | 2024-10-26 08:19 | XMS_ITS | Encounter Summary ---
Author Organization [facility] [employer] [facility] Address [address] [place] [address] Care Team Providers Care Entry Level Assistant Manager Name Role Phone Pritesh Chu MD Primary Care Provider [phone] Encounter Details Date Type Department Care Team (Late st Contact Info) Description 03/06/2024 Orders Only [facility] Oncology and Hematology - [place] [address] [facility] [address] [place] [address] Christopher Meeks MD [address] [facility] [address] [place] [address] Social History Tobacco Use Types [...] Procedure Name Priority Date/Time Associated Diagnosis Comments COMPREHENSIVE METABOLIC PANEL Routine 03/06/2024 2:33 PM CDT CBC WITH DIFFERENTIAL Routine 03/06/2024 2:26 PM CDT documented in this encounter Results * COMPREHENSIVE METABOLIC PANEL (03/06/2024 2:33 PM CDT) Blood Christopher Meeks MD CHEMISTRY ORDERABLES * CBC WITH DIFFERENTIAL (03/06/2024 2:26 PM CDT) Blood Christopher Meeks MD HEMATOLOGY ORDERABLE S documented in this encounter Visit Diagnoses Not on filedocumented in this encounter Care Teams Entry Level Assistant Manager Relationship Specialty Start Date End Date Pritesh Chu MD [address] [place] [address] PCP - General Family Practice 09/13/23 documented as of this encounter
--- OUTSIDE RECORDS SUMMARY | 2024-10-26 08:19 | XMS_ITS | Clinical Summary ---
Author Organization [facility] Facility Address [address] [place] [address] Care Team Providers Care Engraver Flatware Name Role Phone Pritesh Chu MD Primary Care Provider [phone] Encounters Date Type Department Care Team Description 08/23/2024 Travel 08/08/2024 Documentation Only [facility], [address] [phone] Urbano Quiñonez MD 08/07/2024 Patient Outreach - TCM [facility], [address] [phone] Letty Garcia 08/06/2024 Patient Outreach - TCM [facility], [address] [phone] Letty Garcia 08/02/2024 Patient Outreach - TCM [facility], [address] [address] Letty Garcia 08/01/2024 Documentation Only [facility], [address] [phone] Urbano Quiñonez MD 08/01/2024 Patient Outreach - TCM [facility], [address] [address] Letty Garcia 07/31/2024 Documentation Only [facility], [place] [id number] [address] Urbano Quiñonez MD from Last 3 Months Social History Tobacco Use Types Packs/Day Years Used Date Smoking Tobacco: Never Assessed Comments Unknown Sex and Gender Information Value Date Recorded Sex Assigned at Not on file Legal Sex Female 3:09 PM EDT Gender Identity Not on file Sexual Orientation Not on file Plan of Treatment Health Maintenance Due Date Last Done Comments Pneumococcal Vaccine: Pediat rics (0 to 5 Years) and At-Risk Patients (6 to 64 Years) (1 of 2 - PCV) 2006 Influenza Vaccine (#1) 2024 Hepatitis B Vaccine Completed 01/12/2001, 2000, 2000 Procedures Procedure Name Priority Date/Time Associated Diagnosis Comments EXT RESULT ENTRY Routine 08/24/2024 from Last 3 Months Results * (ABNORMAL) EXT RESULT ENTRY (08/24/2024) Sodium 138 137 - 147 Potassium 3.5 3.4 - 5.5 Chloride 106.0 99.0 - 108.0 Carbon Dioxide 22 mmol/L Anion Gap 14 <=30 MMOL/L Glucose 98 60 - 200 BUN 17 4 - 21 mg/dL Creatinine 0.95 0.50 - 1.10 mg/dL Total Protein 5.6(L) 6.4 - 8.2 G/DL BUN/Creatinine Ratio 18 Albumin 3.5 3.5 - 5.0 g/dL Calcium 8.7 8.7 - 10.7 mg/dL eGFR Non-Afr Nauruan 60 Total Bilirubin 0.50 MG/DL ALT (SGPT) 107(H) U/L AST (SGOT) 27 U/L Alkaline Phosphatase 56 U/L 08/24/2024 Historical Provider LAB BLOOD ORDERABLES Susan l Result from Last [address] [place] [address] MEDIC (FORMERLY [employer] ) ([id number]) Care Teams Engraver Flatware Relationship Specialty Start Date End Date Pritesh Chu MD [address] [place] [address] PCP - General Family Medicine 07/29/24
--- OUTSIDE RECORDS SUMMARY | 2024-10-26 08:19 | XMS_ITS | Encounter Summary ---
Author Organization [facility] [employer] [facility] Address [address] [place] [address] Care Team Providers Care Automobile Repossessor Name Role Phone Pritesh Chu MD Primary Care Provider [phone] Encounter Details Date Type Department Care Team (Late st Contact Info) Description 01/16/2024 Orders Only [facility] Oncology and Hematology - [place] [address] [place] [address] [address] [place] [address] Christopher Meeks MD [address] [facility] [address] [place] [address] Malignant melanoma of lower extremity, [...] laterality documented in this encounter Care Teams Automobile Repossessor Relationship Specialty Start Date End Date Pritesh Chu MD [address] [place] [address] PCP - General Family Practice 09/13/23 documented as of this encounter
--- OUTSIDE RECORDS SUMMARY | 2024-10-26 08:19 | XMS_ITS | Encounter Summary ---
Author Organization [facility] [employer] [facility] Address [address] [place] [address] Care Team Providers Care Plasterer Helper Name Role Phone Pritesh Chu MD Primary Care Provider [phone] Encounter Details Date Type Department Care Team (Late st Contact Info) Description 02/29/2024 Orders Only [facility] Oncology and Hematology - [place] [address] [facility] [address] [place] [address] Christopher Meeks MD [address] [facility] [address] [place] [address] Malignant melanoma of lower extremity, [...] Type Priority Associated Diagnoses Orde r Schedule COMPREHENSIVE METABOLIC PANEL Lab Routine Malignant melanoma of lower extremity, unspecified laterality Expected: 02/29/2024, Expires: 02/28/2025 CBC WITH DIFFERENTIAL Lab Routine Malignant melanoma of lower extremity, unspecified laterality Expected: 02/29/2024, Expires: 02/28/2025 documented as of this encounter Visit Diagnoses Diagnosis Malignant melanoma of lower extremity, unspecified laterality- Primary documented in this encounter Care Teams Plasterer Helper Relationship Specialty Start Date End Date Pritesh Chu MD [address] [place] [address] PCP - General Family Practice 09/13/23 documented as of this encounter
--- OUTSIDE RECORDS SUMMARY | 2024-10-26 08:19 | XMS_ITS | Encounter Summary ---
Author Organization [facility] Address [address] [place] [address] Care Team Providers Care Gas Derrick Operator Name Role Phone Pritesh Chu MD Primary Care Provider [phone] Reason for Visit * Reason Comments Chemotherapy Encounter Details Date Type Department Care Team (Late st Contact Info) Description 10/04/2023 9:15 AM EMPLOYMENT ATTORNEY Office Visit [facility] Oncology and Hematology - [place] [address] [facility] [address] [place] [address] Christopher Meeks MD [address] [facility] [address] [place] [address] Malignant melanoma of lower extremity, [...] Sign Reading Time Taken Comments Blood Pressure 139/98 10/04/2023 9:02 AM EMPLOYMENT ATTORNEY Pulse 81 10/04/2023 9:01 AM EMPLOYMENT ATTORNEY Temperature 36.2 ??C (97.2 ??F) 10/04/2023 9:01 AM CS T Respiratory Rate 16 10/04/2023 9:01 AM EMPLOYMENT ATTORNEY Oxygen Saturation 98% 10/04/2023 9:01 AM EMPLOYMENT ATTORNEY Inhaled Oxygen Concentration - - Weight 131.6 kg (290 lb 3.2 oz) 10/04/2023 9:01 AM EMPLOYMENT ATTORNEY Height - - Body Mass Index 45.45 09/13/2023 8:48 AM EMPLOYMENT ATTORNEY documented in this encounter Progress Notes * Christopher Meeks MD - 10/04/2023 10:07 AM CST HEMATOLOGY / ONCOLOGY PROGRESS NOTE Patient Identification: Name: Dayanara Hilton Age: 23 y.o. Sex: female : 2000 DIAGNOSIS T4b N2 MX stage IIIC malignant melanoma status post wide excision and sentinel lymph node biopsy involving the left groin done on August 25, 2023 CURRENT TREATMENT Plan to start adjuvant immunotherapy with nivolumab TREATMENT HISTORY SUBJECTIVE Patient came to the office for follow-up visit after the PET scan was performed. She denies any night sweats fever chills and weight loss. Denies any other new skin lesions. Denies any other new complaints. Review of system Constitutional: Patient did not [...] dizziness Skin: No lumps, bumps or rashes. Objective: Vital signs in last 24 hours: [...] edema Skin: Skin color, texture, turgor normal. No rashes or lesions Lymph nodes: No lymphadenopathy Neuro: No obvious focal deficit [facility] Labs from September 20 showed [...] node dissection without evidence of metastatic disease. Mediport has been placed. She will start adjuvant immunotherapy treatment with nivolumab soon. I will see her back in 4 weeks. ? TOBACCO COUNSELING She is not a tobacco/nicotine user. 10/04/2023 Christopher Meeks MD OYMENT ATTORNEY documented in this encounter Plan of Treatment Not on file documented as of this encounter Visit Diagnoses Diagnosis Malignant melanoma of lower extremity, unspecified laterality- Primary documented in this encounter Care Teams Gas Derrick Operator Relationship Specialty Start Date End Date Pritesh Chu MD [address] [place] [address] PCP - General Family Practice 09/13/23 documented as of this encounter
--- OUTSIDE RECORDS SUMMARY | 2024-10-26 08:19 | XMS_ITS | Encounter Summary ---
Author Organization [facility] [employer] Address [address] [place] [address] Care Team Providers Care High School Assistant Football Coach Name Role Phone Pritesh Chu MD Primary Care Provider [phone] Encounter Details Date Type Department Care Team (Late st Contact Info) Description 09/28/2023 Orders Only [facility] Oncology and Hematology - [place] [address] [facility] [address] [place] [address] Christopher Meeks MD [address] [facility] [address] [place] [address] Social History Tobacco Use Types [...] Name Priority Date/Time Associated Diagnosis Comments PET TUMOR IMG SKL JAIME DENNIS THG Routine 09/27/2023 2:52 PM SCREEN PRINTING MACHINE OPERATOR documented in this encounter Results * PET TUMOR IMG SKB MDTH (09/27/2023 2:52 PM SCREEN PRINTING MACHINE OPERATOR) Anatomical Region Laterality Modality Other Christopher Meeks MD PE ORDERABLES documented in this encounter Visit Diagnoses Not on filedocumented in this encounter Care Teams High School Assistant Football Coach Relationship Specialty Start Date End Date Pritesh Chu MD [address] [place] [address] PCP - General Family Practice 09/13/23 documented as of this encounter
--- OUTSIDE RECORDS SUMMARY | 2024-10-26 08:19 | XMS_ITS | Encounter Summary ---
Author Organization [facility] Address [address] [place] [address] Care Team Providers Care Director Of Health Education Name Role Phone Pritesh Chu MD Primary Care Provider Encounter Details Date Type Department Care Team (Late st Contact Info) Description 06/28/2024 External Device Data STL ABSTRACTION Provider, Abstract [...] in this encounter Care Teams Director Of Health Education Relationship Specialty Start Date End Date Pritesh Chu MD [address] [place] [address] PCP - General Family Practice 09/13/23 documented as of this encounter
--- OUTSIDE RECORDS SUMMARY | 2024-10-26 08:19 | XMS_ITS | Encounter Summary ---
Author Organization [facility] [employer] [facility] Address [address] [place] [address] Care Team Providers Care Pond Sawyer Name Role Phone Pritesh Chu MD Primary Care Provider [phone] Encounter Details Date Type Department Care Team (Late st Contact Info) Description 10/10/2023 Orders Only [facility] Oncology and Hematology - [place] [address] [place] [address] [address] [place] [address] Christopher Meeks MD [address] [facility] [address] [place] [address] Malignant melanoma of lower extremity, [...] Primary documented in this encounter Care Teams Pond Sawyer Relationship Specialty Start Date End Date Pritesh Chu MD [address] [place] [address] PCP - General Family Practice 09/13/23 documented as of this encounter
--- OUTSIDE RECORDS SUMMARY | 2024-10-26 08:19 | XMS_ITS | Encounter Summary ---
Author Organization [facility] [employer] [facility] Address [address] [place] [address] Care Team Providers Care Workforce Advisor Name Role Phone Pritesh Chu MD Primary Care Provider [phone] Encounter Details Date Type Department Care Team (Late st Contact Info) Description 09/20/2023 Abstract [facility] Oncology and Hematology - [place] [address] [place] [address] [address] [place] [address] Christopher Meeks MD [address] [facility] [address] [place] [address] Social History Tobacco Use Types [...] on filedocumented in this encounter Care Teams Workforce Advisor Relationship Specialty Start Date End Date Pritesh Chu MD [address] [place] [address] PCP - General Family Practice 09/13/23 documented as of this encounter
--- OUTSIDE RECORDS SUMMARY | 2024-10-26 08:19 | XMS_ITS | Encounter Summary ---
Author Organization [facility] [employer] [facility] Address [address] [place] [address] Care Team Providers Care Fee Clerk Name Role Phone Pritesh Chu MD Primary Care Provider [phone] Encounter Details Date Type Department Care Team (Late st Contact Info) Description 08/13/2024 Orders Only [facility] Oncology and Hematology - [place] [address] [place] [address] Dr [address] [place] [address] Christopher Meeks MD [address] [facility] [address] [place] [address] Malignant melanoma of lower extremity, [...] laterality documented in this encounter Care Teams Fee Clerk Relationship Specialty Start Date End Date Pritesh Chu MD [address] [place] [address] PCP - General Family Practice 09/13/23 documented as of this encounter
--- OUTSIDE RECORDS SUMMARY | 2024-10-26 08:19 | XMS_ITS | Encounter Summary ---
Author Organization [facility] [employer] [facility] Address [address] [place] [address] Care Team Providers Care Blood Collector Name Role Phone Pritesh Chu MD Primary Care Provider [phone] Encounter Details Date Type Department Care Team (Late st Contact Info) Description 04/23/2024 Orders Only [facility] Oncology and Hematology - [place] [address] [place] [address] [address] [place] [address] Christopher Meeks MD [address] [facility] [address] [place] [address] Malignant melanoma of lower extremity, [...] laterality documented in this encounter Care Teams Blood Collector Relationship Specialty Start Date End Date Pritesh Chu MD [address] [place] [address] PCP - General Family Practice 09/13/23 documented as of this encounter
--- OUTSIDE RECORDS SUMMARY | 2024-10-26 08:19 | XMS_ITS | Encounter Summary ---
Author Organization [facility] Address [address] [place] [address] Care Team Providers Care Floorleader Name Role Phone Pritesh Chu MD Primary Care Provider [phone] Encounter Details Date Type Department Care Team (Late st Contact Info) Description 01/06/2024 External Device Data STL ABSTRACTION Provider, Abstract [...] on filedocumented in this encounter Care Teams Floorleader Relationship Specialty Start Date End Date Pritesh Chu MD [address] [place] [address] PCP - General Family Practice 09/13/23 documented as of this encounter
--- OUTSIDE RECORDS SUMMARY | 2024-10-26 08:19 | XMS_ITS | Encounter Summary ---
Author Organization [facility] Address [address] [place] [address] Care Team Providers Care Social Science Professor Name Role Phone Pritesh Chu MD Primary Care Provider [phone] Encounter Details Date Type Department Care Team [...] on filedocumented in this encounter Care Teams Social Science Professor Relationship Specialty Start Date End Date Pritesh Chu MD [address] [place] [address] PCP - General Family Practice 09/13/23 documented as of this encounter
--- OUTSIDE RECORDS SUMMARY | 2024-10-26 08:19 | XMS_ITS | Encounter Summary ---
Author Organization [facility] Address [address] [place] [address] Care Team Providers Care Testing And Regulating Chief Name Role Phone Pritesh Chu MD Primary Care Provider [phone] Encounter Details Date Type Department Care Team (Late st Contact Info) Description 10/19/2023 External Device Data STL ABSTRACTION Provider, Abstract [...] on filedocumented in this encounter Care Teams Testing And Regulating Chief Relationship Specialty Start Date End Date Pritesh Chu MD [address] [place] [address] PCP - General Family Practice 09/13/23 documented as of this encounter
--- OUTSIDE RECORDS SUMMARY | 2024-10-26 08:19 | XMS_ITS | Encounter Summary ---
Author Organization [employer] [facility] Address [address] [place] [address] [address] [place] [address] Phone Care Team Providers Care Radio Assembler Name Role Phone Pritesh Chu MD Primary Care Provider [phone] Encounter Details Date Type Department Care Team (Late st Contact Info) Description 08/08/2024 Documentation Only [employer] [facility] [address] [facility] [address] [place] [address] Urbano Quiñonez MD [address] [place] [address] [address] [place], [place] [id number] Social History Tobacco Use Types Packs/Day Years [...] on filedocumented in this encounter Care Teams Radio Assembler Relationship Specialty Start Date End Date Pritesh Chu MD [address] [place] [address] PCP - General Family Medicine 07/29/24 documented as of this encounter
--- OUTSIDE RECORDS SUMMARY | 2024-10-26 08:19 | XMS_ITS | Encounter Summary ---
Author Organization [facility] [employer] [facility] Address [address] [place] [address] Care Team Providers Care Tractor Mechanic Apprentice Name Role Phone Pritesh Chu MD Primary Care Provider [phone] Encounter Details Date Type Department Care Team (Late st Contact Info) Description 01/02/2024 Orders Only [facility] Oncology and Hematology - [place] [address] [place] [address] [address] [place] [address] Christopher Meeks MD [address] [facility] [address] [place] [address] Malignant melanoma of lower extremity, [...] laterality documented in this encounter Care Teams Tractor Mechanic Apprentice Relationship Specialty Start Date End Date Pritesh Chu MD [address] [place] [address] PCP - General Family Practice 09/13/23 documented as of this encounter
--- OUTSIDE RECORDS SUMMARY | 2024-10-26 08:19 | XMS_ITS | Encounter Summary ---
Author Organization [facility] Address [address] [place] [address] Care Team Providers Care Pattern Setter Name Role Phone Pritesh Chu MD Primary Care Provider [phone] Reason for Visit * Reason Onset Date Comments Needs Appointment 03/07/2024 Encounter Details Date Type Department Care Team (Late st Contact Info) Description 03/07/2024 Telephone [facility] [address] [facility] [address] [place] [address] [place] [address] [facility] [address] [place] [address] Needs Appointment Social History Tobacco Use Types Packs/Day Years [...] encounter Miscellaneous Notes * Telephone Encounter - Aniya Roman - 03/07/2024 9:25 AM CDT LVM for patient to call office regarding appointment to see Dr Riley; patient needs to have PET scheduled and completed prior to appointment, no other work up is needed documented in this encounter Plan of Treatment Not on file documented as of this encounter Visit Diagnoses Not on filedocumented in this encounter Care Teams Pattern Setter Relationship Specialty Start Date End Date Pritesh Chu MD [address] [place] [address] PCP - General Family Practice 09/13/23 documented as of this encounter
--- OUTSIDE RECORDS SUMMARY | 2024-10-26 08:19 | XMS_ITS | Encounter Summary ---
Author Organization [facility] [employer] [facility] Address [address] [place] [address] Care Team Providers Care Motor Winder Name Role Phone Pritesh Chu MD Primary Care Provider [phone] Encounter Details Date Type Department Care Team (Late st Contact Info) Description 03/26/2024 Orders Only [facility] Oncology and Hematology - [place] [address] [place] [address] [address] [place] [address] Christopher Meeks MD [address] [facility] [address] [place] [address] Malignant melanoma of lower extremity, [...] laterality documented in this encounter Care Teams Motor Winder Relationship Specialty Start Date End Date Pritesh Chu MD [address] [place] [address] PCP - General Family Practice 09/13/23 documented as of this encounter
--- OUTSIDE RECORDS SUMMARY | 2024-10-26 08:19 | XMS_ITS | Clinical Summary ---
Author Organization [facility] [employer] an[employer] Yu Address [address] [place] [address] Care Team Providers Care Atomic Physics Professor Name Role Phone Pritesh Cuh MD Primary Care Provider [phone] Allergies No known active allergies Medications Medication Sig Dispensed Refills Start Date End Date Status acetaminophen-code ine (TYLENOL #2) 300-15 mg tablet Take 1 Tablet by mouth every 6 hours as needed for Pain. 08/25/2023 Active norethindrn a-e estradiol-iron (Junel FE 11/26, ,) 1 mg-20 mcg (21)/75 mg (7) tablet Take 1 Tablet by mouth daily. Active ondansetron (ZOFRAN ODT) 8 mg Tablet, Rapid DissolveIndication s:Malignant melanoma of lower extremity, unspecified laterality Dissolve 1 tablet on top of tongue then swallow with saliva every 8 hours as needed for nausea or vomiting 30 Tablet 1 10/10/2023 Active lidocaine-prilocai ne (EMLA) 2.5-2.5 % CreamIndications:M alignant melanoma of lower extremity, unspecified laterality Apply to affected area see administration instructions. 30 Gram 1 10/10/2023 Active Active Problems No known active problems Encounters Date Type Department Care Team Description 10/22/2024 Orders Only [facility] [place] Oncology and Hematology - [place] [address] [facility] [place] [address] Christopher Meeks MD Malignant melanoma of lower extremity, unspecified laterality 10/08/2024 Orders Only [facility] [place] Oncology and Hematology - [place] [address] [facility] [place] [address] Christopher Meeks MD Malignant melanoma of lower extremity, unspecified laterality 09/24/2024 Orders Only [facility] [place] Oncology and Hematology - [place] [address] [place] [address] Christopher Meeks MD Malignant melanoma of lower extremity, unspecified laterality 09/10/2024 Orders Only [facility] [place] Oncology and Hematology - [place] [address] [place] [address] Christopher Meeks MD Malignant melanoma of lower extremity, unspecified laterality 08/27/2024 Orders Only [facility] [place] Oncology and Hematology - [place] [address] [place] [address] Christopher Meeks MD Malignant melanoma of lower extremity, unspecified laterality 08/13/2024 Orders Only [facility] [place] Oncology and Hematology - [place] [address] [place] [address] Christopher Meeks MD Malignant melanoma of lower extremity, unspecified laterality 07/30/2024 Orders Only [facility] [place] Oncology and Hematology - [place] [address] [place] [address] Christopher Meeks MD Malignant melanoma of lower extremity, unspecified laterality from Last 3 Months Family History Medical History Relation Name Comments Prostate Cancer Father Relation Name Status Comments Brother Father Alive Mother Alive Sister Alive Social History Tobacco Use Types Packs/Day Years [...] 9.6 oz) 03/06/2024 9:40 AM CDT Height 170.2 cm (5' 7 ) 09/13/2023 8:48 AM DIRECTOR OF CASEWORK Body Mass Index 45.2 09/13/2023 8:48 AM DIRECTOR OF CASEWORK Plan of Treatment Health Maintenance Due Date Last Done Comments CERVICAL CANCER SCREENING 2021 DTAP/TDAP/TD VACCINES (7 - Td or Tdap) 04/19/2021 04/19/2011, 04/06/2005, 10/16/2001, Additional history exists INFLUENZA VACCINE (#1) 2024 HEPATITIS B VACCINES Completed 01/12/2001, 2000, 2000 HPV VACCINES Completed 04/18/2015, 05/2014, 07/05/2014 PNEUMOCOCCAL VACCINE 0-64 YEARS Aged Out No longer eligible based on patient's age to complete this topic Care Teams Atomic Physics Professor Relationship Specialty Start Date End Date Pritesh Chu MD [address] [place] [address] PCP - General Family Practice 09/13/23
--- OUTSIDE RECORDS SUMMARY | 2024-10-26 08:19 | XMS_ITS | Encounter Summary ---
Author Organization [facility] [employer] [facility] Address [address] [place] [address] Care Team Providers Care Desktop Analyst Name Role Phone Pritesh Chu MD Primary Care Provider [phone] Encounter Details Date Type Department Care Team (Late st Contact Info) Description 06/18/2024 Orders Only [facility] Oncology and Hematology - [place] [address] [place] [address] [address] [place] [address] Christopher Meeks MD [address] [facility] [address] [place] [address] Malignant melanoma of lower extremity, [...] laterality documented in this encounter Care Teams Desktop Analyst Relationship Specialty Start Date End Date Pritesh Chu MD [address] [place] [address] PCP - General Family Practice 09/13/23 documented as of this encounter
--- OUTSIDE RECORDS SUMMARY | 2024-10-26 08:19 | XMS_ITS | Encounter Summary ---
Author Organization [facility] [employer] [facility] Address [address] [place] [address] Care Team Providers Care Auto Rebuilder Name Role Phone Pritesh Cuh MD Primary Care Provider [phone] Encounter Details Date Type Department Care Team (Late st Contact Info) Description 01/30/2024 Orders Only [facility] Oncology and Hematology - [place] [address] [place] [address] [address] [place] [address] Christopher Meeks MD [address] [facility] [address] [place] [address] Malignant melanoma of lower extremity, [...] laterality documented in this encounter Care Teams Auto Rebuilder Relationship Specialty Start Date End Date Pritesh Chu MD [address] [place] [address] PCP - General Family Practice 09/13/23 documented as of this encounter
--- OUTSIDE RECORDS SUMMARY | 2024-10-26 08:19 | XMS_ITS | Encounter Summary ---
Author Organization [facility] Address [address] [place] [address] Care Team Providers Care Medicine Worker Name Role Phone Pritesh Chu MD Primary Care Provider [phone] Encounter Details Date Type Department Care Team [...] on filedocumented in this encounter Care Teams Medicine Worker Relationship Specialty Start Date End Date Pritesh Chu MD [address] [place] [address] PCP - General Family Practice 09/13/23 documented as of this encounter
--- OUTSIDE RECORDS SUMMARY | 2024-10-26 08:19 | XMS_ITS | Encounter Summary ---
Author Organization [facility] [employer] [facility] Address [address] [place] [address] Care Team Providers Care Gasoline Engine Assembler Name Role Phone Pritesh Chu MD Primary Care Provider [phone] Encounter Details Date Type Department Care Team (Late st Contact Info) Description 07/30/2024 Orders Only [facility] Oncology and Hematology - [place] [address] [place] [address] [address] [place] [address] Christopher Meeks MD [address] [facility] [address] [place] [address] Malignant melanoma of lower extremity, [...] laterality documented in this encounter Care Teams Gasoline Engine Assembler Relationship Specialty Start Date End Date Pritesh Chu MD [address] [place] [address] PCP - General Family Practice 09/13/23 documented as of this encounter
--- OUTSIDE RECORDS SUMMARY | 2024-10-26 08:19 | XMS_ITS | Encounter Summary ---
Author Organization [facility] [employer] [facility] Address [address] [place] [address] Care Team Providers Care Administrative Assistant Coordinator Name Role Phone Pritesh Chu MD Primary Care Provider [phone] Reason for Visit * Reason Onset Date Comments PET SCAN APPT 03/21/2024 PET Scan resched uled for 04/03/24 @2pm (130pm arrival) 6hr fast No coffee, no caffine, no sugar 24hrs prior Encounter Details Date Type Department Care Team (Late st Contact Info) Description 03/21/2024 Telephone [facility] Oncology and Hematology - [place] [address] [place] [address] [facility] [address] [place] [address] Christopher Meeks MD [address] [facility] [address] [place] [address] PET SCAN APPT (PET Scan rescheduled for 04/03/24 @2pm (130pm arrival) /6hr fast /No coffee, no caffine, no sugar 24hrs prior ) Social History Tobacco Use Types Packs/Day [...] encounter Miscellaneous Notes * Telephone Encounter - Knapp Ariesliban - 03/21/2024 2:30 PM CDT PET Scan rescheduled for 04/03/24 @2pm (130pm arrival) 6hr fast No coffee, no caffine, no sugar 24hrs prior documented in this encounter Plan of Treatment Not on file documented as of this encounter Visit Diagnoses Not on filedocumented in this encounter Care Teams Administrative Assistant Coordinator Relationship Specialty Start Date End Date Pritesh Chu MD [address] [place] [address] PCP - General Family Practice 09/13/23 documented as of this encounter
--- OUTSIDE RECORDS SUMMARY | 2024-10-26 08:19 | XMS_ITS | Encounter Summary ---
Author Organization [facility] Address [address] [place] [address] Care Team Providers Care Awning Hanger Supervisor Name Role Phone Pritesh Chu MD Primary Care Provider [phone] Encounter Details Date Type Department Care Team (Late st Contact Info) Description 12/07/2023 External Device Data STL ABSTRACTION Provider, Abstract [...] on filedocumented in this encounter Care Teams Awning Hanger Supervisor Relationship Specialty Start Date End Date Pritesh Chu MD [address] [place] [address] PCP - General Family Practice 09/13/23 documented as of this encounter
--- OUTSIDE RECORDS SUMMARY | 2024-10-26 08:19 | XMS_ITS | Encounter Summary ---
Author Organization [facility] Address [address] [place] [address] Care Team Providers Care Commercial Glazier Name Role Phone Pritesh Chu MD Primary Care Provider Encounter Details Date Type Department Care Team (Late st Contact Info) Description 12/04/2023 External Device Data STL ABSTRACTION Provider, Abstract [...] on filedocumented in this encounter Care Teams Commercial Glazier Relationship Specialty Start Date End Date Pritesh Chu MD [address] [place] [address] PCP - General Family Practice 09/13/23 documented as of this encounter
--- OUTSIDE RECORDS SUMMARY | 2024-10-26 08:19 | XMS_ITS | Encounter Summary ---
Author Organization [facility] [email or web address] [facility] Address [address] [place] [address] Care Team Providers Care Electronic Drafter Name Role Phone Pritesh Chu MD Primary Care Provider [phone] Encounter Details Date Type Department Care Team (Late st Contact Info) Description 12/19/2023 Orders Only [facility] Oncology and Hematology - [place] [address] [place] [address] [address] [place] [address] Christopher Meeks MD [address] [facility] [address] [place] [address] Malignant melanoma of lower extremity, [...] laterality documented in this encounter Care Teams Electronic Drafter Relationship Specialty Start Date End Date Pritesh Chu MD [address] [place] [address] PCP - General Family Practice 09/13/23 documented as of this encounter
--- OUTSIDE RECORDS SUMMARY | 2024-10-26 08:19 | XMS_ITS | Encounter Summary ---
Author Organization [facility] [employer] [facility] Address [address] [place] [address] Care Team Providers Care Physician Non Invasive Cardiologist Name Role Phone Pritesh Chu MD Primary Care Provider [phone] Encounter Details Date Type Department Care Team (Late st Contact Info) Description 11/10/[address] [facility] Oncology and Hematology - [place] [address] [place] [address] Christopher Meeks MD 2[address] [facility] [address] [place] [address] Malignant melanoma of lower extremity, [...] Type Priority Associated Diagnoses Orde r Schedule BASIC METABOLIC PANEL Lab Routine Malignant melanoma of lower extremity, unspecified laterality Every Two Weeks for 99 Occurrences starting 11/10/2023 until 11/10/2024 TSH Lab Routine Malignant melanoma of lower extremity, unspecified laterality Every Two Weeks for 99 Occurrences starting 11/10/2023 until 11/10/2024 documented as of this encounter Visit Diagnoses Diagnosis Malignant melanoma of lower extremity, unspecified laterality- Primary documented in this encounter Care Teams Physician Non Invasive Cardiologist Relationship Specialty Start Date End Date Pritesh Chu MD [address] [place] [address] PCP - General Family Practice 09/13/23 documented as of this encounter
--- OUTSIDE RECORDS SUMMARY | 2024-10-26 08:19 | XMS_ITS | Encounter Summary ---
Author Organization [facility] [employer] [facility] Address [address] [place] [address] Care Team Providers Care Groundsman Name Role Phone Pritesh Chu MD Primary Care Provider [phone] Encounter Details Date Type Department Care Team (Late st Contact Info) Description 02/27/2024 Orders Only [facility] Oncology and Hematology - [place] [address] [place] [address] [address] [place] [address] Christopher Meeks MD 2[address] [facility] [address] [place] [address] Malignant melanoma of lower extremity, [...] laterality documented in this encounter Care Teams Groundsman Relationship Specialty Start Date End Date Pritesh Chu MD [address] [place] [address] PCP - General Family Practice 09/13/23 documented as of this encounter
--- OUTSIDE RECORDS SUMMARY | 2024-10-26 08:19 | XMS_ITS | Encounter Summary ---
Author Organization [facility] [employer] [facility] Address [address] [place] [address] Care Team Providers Care News Photographer Name Role Phone Pritesh Chu MD Primary Care Provider [phone] Encounter Details Date Type Department Care Team (Late st Contact Info) Description 05/21/2024 Orders Only [facility] Oncology and Hematology - [place] [address] [place] [address] [address] [place] [address] Christopher Meeks MD [address] [facility] [address] [place] [address] Malignant melanoma of lower extremity, [...] laterality documented in this encounter Care Teams News Photographer Relationship Specialty Start Date End Date Pritesh Chu MD [address] [place] [address] PCP - General Family Practice 09/13/23 documented as of this encounter
--- OUTSIDE RECORDS SUMMARY | 2024-10-26 08:19 | XMS_ITS | Encounter Summary ---
Author Organization [facility] [employer] [facility] Address [address] [place] [address] Care Team Providers Care Manager Net Name Role Phone Pritesh Chu MD Primary Care Provider [phone] Encounter Details Date Type Department Care Team (Late st Contact Info) Description 06/04/2024 Orders Only [facility] Oncology and Hematology - [place] [address] [place] [address] [address] [place] [address] Christopher Meeks MD 2[address] [facility] [address] [place] [address] Malignant melanoma of lower extremity, [...] laterality documented in this encounter Care Teams Manager Net Relationship Specialty Start Date End Date Pritesh Chu MD [address] [place] [address] PCP - General Family Practice 09/13/23 documented as of this encounter
--- OUTSIDE RECORDS SUMMARY | 2024-10-26 08:19 | XMS_ITS | Encounter Summary ---
Author Organization [facility] [employer] [facility] Address [address] [place] [address] Care Team Providers Care Head Pumper Name Role Phone Pritehs Chu MD Primary Care Provider Encounter Details Date Type Department Care Team (Late st Contact Info) Description 09/21/2023 Orders Only [facility] Oncology and Hematology - [place] 2[address] [facility] 200 [place] [address] Christopher Meeks MD [address] [facility] [address] [place] [address] Social History Tobacco Use Types [...] Procedure Name Priority Date/Time Associated Diagnosis Comments HEPATITIS B SURFACE ANTIGEN Routine 09/20/2023 9:22 AM RENTAL AGENT COMPREHENSIVE METABOLIC PANEL Routine 09/20/2023 8:49 AM RENTAL AGENT CBC WITH DIFFERENTIAL Routine 09/20/2023 8:37 AM RENTAL AGENT documented in this encounter Results * HEPATITIS B SURFACE ANTIGEN (09/20/2023 9:22 AM RENTAL AGENT) Blood Christopher Meeks MD CHEMISTRY ORDERABLES * COMPREHENSIVE METABOLIC PANEL (09/20/2023 8:49 AM RENTAL AGENT) Blood Christopher Meeks MD CHEMISTRY ORDERABLES * CBC WITH DIFFERENTIAL (09/20/2023 8:37 AM RENTAL AGENT) Blood Christopher Meeks MD HEMATOLOGY ORDERABLE S documented in this encounter Visit Diagnoses Not on filedocumented in this encounter Care Teams Head Pumper Relationship Specialty Start Date End Date Pritesh Chu MD [address] [place] [address] PCP - General Family Practice 09/13/23 documented as of this encounter
--- OUTSIDE RECORDS SUMMARY | 2024-10-26 08:19 | XMS_ITS | Encounter Summary ---
Author Organization [facility] Address [address] [place] [address] Care Team Providers Care Tape Maker Name Role Phone Pritesh Chu MD Primary Care Provider [phone] Encounter Details Date Type Department Care Team (Late st Contact Info) Description 01/20/2024 External Device Data STL ABSTRACTION Provider, Abstract [...] on filedocumented in this encounter Care Teams Tape Maker Relationship Specialty Start Date End Date Pritesh Chu MD [address] [place] [address] PCP - General Family Practice 09/13/23 documented as of this encounter
--- OUTSIDE RECORDS SUMMARY | 2024-10-26 08:19 | XMS_ITS | Encounter Summary ---
Author Organization [facility] [employer] [facility] Address [address] [place] [address] Care Team Providers Care Construction Driver Name Role Phone Pritesh Chu MD Primary Care Provider [phone] Encounter Details Date Type Department Care Team (Late st Contact Info) Description 10/22/2024 Orders Only [facility] Oncology and Hematology - [place] [address] [place] [address] Dr [address] [place] [address] Christopher Meeks MD 2[address] [facility] [address] [place] [address] Malignant melanoma of lower extremity, [...] laterality documented in this encounter Care Teams Construction Driver Relationship Specialty Start Date End Date Pritesh Chu MD [address] [place] [address] PCP - General Family Practice 09/13/23 documented as of this encounter
--- OUTSIDE RECORDS SUMMARY | 2024-10-26 08:19 | XMS_ITS | Encounter Summary ---
Author Organization [facility] [employer] [facility] Address [address] [place] [address] Care Team Providers Care Customer Service Advocate Name Role Phone Pritesh Chu MD Primary Care Provider [phone] Encounter Details Date Type Department Care Team (Late st Contact Info) Description 09/24/2024 Orders Only [facility] Oncology and Hematology - [place] [address] [place] [address] [address] [place] [address] Christopher Meeks MD 2[address] [facility] [address] [place] [address] Malignant melanoma of lower extremity, [...] laterality documented in this encounter Care Teams Customer Service Advocate Relationship Specialty Start Date End Date Pritesh Chu MD [address] [place] [address] PCP - General Family Practice 09/13/23 documented as of this encounter
--- OUTSIDE RECORDS SUMMARY | 2024-10-26 08:19 | XMS_ITS | Encounter Summary ---
Author Organization [facility] [employer] [facility] Address [address] [place] [address] Care Team Providers Care Medical Laboratory Scientist Name Role Phone Pritesh Chu MD Primary Care Provider [phone] Encounter Details Date Type Department Care Team (Late st Contact Info) Description 12/21/2023 Abstract [facility] [place] Oncology and Hematology - [place] [address] [place] [address] Dr [address] [place] [address] Christopher Meeks MD 2[address] [facility] [address] [place] [address] Social History Tobacco Use Types [...] on filedocumented in this encounter Care Teams Medical Laboratory Scientist Relationship Specialty Start Date End Date Pritesh Chu MD [address] [place] [address] PCP - General Family Practice 09/13/23 documented as of this encounter
--- OUTSIDE RECORDS SUMMARY | 2024-10-26 08:19 | XMS_ITS | Encounter Summary ---
Author Organization [facility] [employer] [facility] Address [address] [place] [address] Phone Care Team Providers Care Lab Technologist Name Role Phone Pritesh Chu MD Primary Care Provider [phone] Encounter Details Date Type Department Care Team (Late st Contact Info) Description 08/02/2024 Patient Outreach - [facility] [facility] [address] [facility] [address] [place] [address] [facility] [address] [place] [address] Social History Tobacco Use Types Packs/Day Years Used Date Smoking Tobacco: Never Assessed Comments Unknown Sex and Gender Information Value Date Recorded Sex Assigned at Not on file Legal Sex Female 3:09 PM EDT Gender Identity Not on file Sexual Orientation Not on file documented as of this encounter Miscellaneous Notes * Telephone Encounter - Letty Garcia - 08/02/2024 1:05 PM CDT ..Transitional Care Management (TCM) Contact Summary (Prior 30 Days): Most Recent Discharge Date: 07/31/2024 (2 days prior to this encounter's date) First Post Discharge Contact: 08/01/2024 (No answer - first attempt) Second Post Discharge Contact: 08/02/2024 (No answer - second attempt) Most Recent Post Discharge Contact: 08/02/2024 (No answer - second attempt) Most Recent Outreach Details (Interactive Contact): Call Status: No answer - second attempt ([facility] 08.02.24) documented in this encounter Plan of Treatment Not on file documented as of this encounter Visit Diagnoses Not on filedocumented in this encounter Care Teams Lab Technologist Relationship Specialty Start Date End Date Pritesh Chu MD [address] [place] [address] PCP - General Family Medicine 07/29/24 documented as of this encounter
--- OUTSIDE RECORDS SUMMARY | 2024-10-26 08:19 | XMS_ITS | Encounter Summary ---
Author Organization [facility] [employer] [facility] Address [address] [place] [address] Care Team Providers Care Airplane Pilot Commercial Name Role Phone Pritesh Chu MD Primary Care Provider [phone] Encounter Details Date Type Department Care Team (Late st Contact Info) Description 12/05/2023 Orders Only [facility] Oncology and Hematology - [place] [address] [place] [address] [address] [place] [address] Christopher Meeks MD [address] [facility] [address] [place] [address] Malignant melanoma of lower [...] laterality documented in this encounter Care Teams Airplane Pilot Commercial Relationship Specialty Start Date End Date Pritesh Chu MD [address] [place] [address] PCP - General Family Practice 09/13/23 documented as of this encounter
--- OUTSIDE RECORDS SUMMARY | 2024-10-26 08:19 | XMS_ITS | Encounter Summary ---
Author Organization [facility] youwho , [facility] Address [address] [place] [address] Phone Care Team Providers Care Mechanical Ordnance Assembler Name Role Phone Pritesh Chu MD Primary Care Provider [phone] Encounter Details Date Type Department Care Team (Late st Contact Info) Description 08/07/2024 Patient Outreach - [facility] [place] [facility] [address] [place] [address] Letty Garcia [address] [facility] [address] [place] [address] Social History Tobacco Use Types Packs/Day Years Used Date Smoking Tobacco: Never Assessed Comments Unknown Sex and Gender Information Value Date Recorded Sex Assigned at Not on file Legal Sex Female 3:09 PM EDT Gender Identity Not on file Sexual Orientation Not on file documented as of this encounter Miscellaneous Notes * Telephone Encounter - Letty Garcia - 08/07/2024 2:33 PM CDT ..Call Status: Completed Patient has transitioned to the following type of facility within the past 14 calendar days:: Home Discharging Facility: [facility] Discharge diagnosis: N17.9, K52.9, C43.9 Date of admission: 08/01/24 Date of discharge: 08/04/24 Date of interactive contact with patient or caregiver (should be within 2 business days post D/C): 08/07/24 outstanding tests and/or treatments: Yes (Comment) (Will complete blood work) How are you feeling now?: feeling all right Are you able to complete your routine daily activities?: Yes (for the most part, has not gone back to work) Since your discharge, have you had any emergency room visits or admissions?: No Are you experiencing any other problems that should be addressed?: No Did you receive discharge instructions?: Yes, verbal and written Did you fill all your prescriptions?: Yes Are you taking your medications as prescribed?: Yes Do you have a follow-up appointment scheduled with your PCP?: No Do you understand the importance of the follow-up appointment?: Yes Do you have any conflicts that would cause you to miss your follow-up appointment?: No documented in this encounter Plan of Treatment Not on file documented as of this encounter Visit Diagnoses Not on filedocumented in this encounter Care Teams Mechanical Ordnance Assembler Relationship Specialty Start Date End Date Pritesh Chu MD [address] [place] [address] PCP - General Family Medicine 07/29/24 documented as of this encounter
--- OUTSIDE RECORDS SUMMARY | 2024-10-26 08:19 | XMS_ITS | Encounter Summary ---
Author Organization [facility] [employer] [facility] Address [address] [place] [address] Care Team Providers Care Loan Officer Name Role Phone Pritesh Chu MD Primary Care Provider [phone] Encounter Details Date Type Department Care Team (Late st Contact Info) Description 08/27/2024 Orders Only [facility] Oncology and Hematology - [place] [address] [place] [address] [address] [place] [address] Christopher Meeks MD [address] [facility] [address] [place] [address] Malignant melanoma of lower extremity, [...] laterality documented in this encounter Care Teams Loan Officer Relationship Specialty Start Date End Date Pritesh Chu MD [address] [place] [address] PCP - General Family Practice 09/13/23 documented as of this encounter
--- OUTSIDE RECORDS SUMMARY | 2024-10-26 08:19 | XMS_ITS | Encounter Summary ---
Author Organization [facility] , [facility] Address [address] [place] [address] Phone Care Team Providers Care Lift Truck Mechanic Name Role Phone Pritesh Chu MD Primary Care Provider [phone] Encounter Details Date Type Department Care Team (Late st Contact Info) Description 08/06/2024 Patient Outreach - [facility] [place] [facility] [address] [facility] [address] [place] [address] Letty Garcia [address] [place] [address] Social History Tobacco Use Types [...] on filedocumented in this encounter Care Teams Lift Truck Mechanic Relationship Specialty Start Date End Date Pritesh Cuh MD [address] [place] [address] PCP - General Family Medicine 07/29/24 documented as of this encounter
--- OUTSIDE RECORDS SUMMARY | 2024-10-26 08:19 | XMS_ITS | Encounter Summary ---
Author Organization [facility] Address [address] [place] [address] Care Team Providers Care Trail Construction Worker Name Role Phone Pritesh Chu MD Primary Care Provider [phone] Encounter Details Date Type Department Care Team (Late st Contact Info) Description 12/03/2023 External Device Data [facility] ABSTRACTION Provider, Abstract [...] on filedocumented in this encounter Care Teams Trail Construction Worker Relationship Specialty Start Date End Date Pritesh Chu MD [address] [place] [address] PCP - General Family Practice 09/13/23 documented as of this encounter
--- OUTSIDE RECORDS SUMMARY | 2024-10-26 08:19 | XMS_ITS | Encounter Summary ---
Author Organization [facility] Address [address] [place] [address] Care Team Providers Care Hired Help Name Role Phone Pritesh Chu MD Primary Care Provider [phone] Encounter Details Date Type Department Care Team (Late st Contact Info) Description 11/21/[address] [facility] Oncology and Hematology - [place] [address] [place] [address] [address] [place] [address] Christopher Meeks MD [address] [facility] [address] [place] [address] Malignant melanoma of lower extremity, [...] laterality documented in this encounter Care Teams Hired Help Relationship Specialty Start Date End Date Pritesh Chu MD [address] [place] [address] PCP - General Family Practice 09/13/23 documented as of this encounter
--- OUTSIDE RECORDS SUMMARY | 2024-10-26 08:19 | XMS_ITS | Encounter Summary ---
Author Organization [facility] [employer] [facility] Address [address] [place] [address] Care Team Providers Care Hamper Maker Machine Name Role Phone Pritesh Chu MD Primary Care Provider [phone] Encounter Details Date Type Department Care Team (Late st Contact Info) Description 04/09/2024 Orders Only [facility] Oncology and Hematology - [place] [address] [facility] [address] [place] [address] Christopher Meeks MD [address] [facility] [address] [place] [address] Malignant melanoma of lower extremity, [...] laterality documented in this encounter Care Teams Hamper Maker Machine Relationship Specialty Start Date End Date Pritesh Chu MD [address] [place] [address] PCP - General Family Practice 09/13/23 documented as of this encounter
--- OUTSIDE RECORDS SUMMARY | 2024-10-26 08:20 | XMS_ITS | Encounter Summary ---
Author Organization [facility] [facility] , [employer] Address [address] [place] [phone] Phone Care Team Providers Care Global Security Architect Name Role Phone Pritesh Chu MD Primary Care Provider [phone] Encounter Details Date Type Department Care Team (Late st Contact Info) Description 08/01/2024 Patient Outreach - [facility] [place] [facility] [employer] [address] [facility] [address] [place] [address] Letty Garcia [address] [place] [address] Social History Tobacco Use Types [...] on filedocumented in this encounter Care Teams Global Security Architect Relationship Specialty Start Date End Date Pritesh Chu MD [address] [place] [address] PCP - General Family Medicine 07/29/24 documented as of this encounter
--- OUTSIDE RECORDS SUMMARY | 2024-10-26 08:20 | XMS_ITS | Encounter Summary ---
Author Organization [facility] Address [address] [place] [address] [address] [place] [address] Phone Care Team Providers Care Skills Instructor Name Role Phone Pritesh Chu MD Primary Care Provider [phone] Encounter Details Date Type Department Care Team (Late st Contact Info) Description 07/31/2024 Documentation Only [place] [facility] [address] [facility] [address] [place] [address] Urbano Quiñonez MD [address] [place] [address] [address] [place], [place] [id number] Social History Tobacco Use Types Packs/Day Years [...] on filedocumented in this encounter Care Teams Skills Instructor Relationship Specialty Start Date End Date Pritesh Chu MD [address] [place] [address] PCP - General Family Medicine 07/29/24 documented as of this encounter
--- OUTSIDE RECORDS SUMMARY | 2024-10-26 10:52 | XMS_ITS | Encounter Summary ---
Author Organization [facility] Address [address] [facility] [place] [address] Care Team Providers Care Progressive Care Manager Name Role Phone Priya Sprague MD Primary Care Provider [phone] Reason for Visit * Reason Onset Date Comments Complete Physical Exam 06/22/2016 Encounter Details Date Type Department Care Team (Late st Contact Info) Description 06/22/2016 11:00 AM CDT Office Visit [facility] Medical [facility] - Pediatrics [address] [place] [phone] Priya Sprague MD [address] [place] [address] Encounter for routine child health examination [...] 96.72% 06/22 10:38 AM CDT Growth Chart: [facility] (Girls, 2- 20 Years) documented in [...] 98%ile (Z=2.10) based on CDC 2-20 Years enytyr-dmn-hrk data using vitals from 06/22/2016. Ht Readings from Last 1 Encounters: 06/22/16 1.699 m (5' 6.88 ) (87 %*, Z = 1.11) * Growth percentiles are based on CDC 2-20 Years data. 87%ile (Z=1.11) based on CDC 2-20 Years wumgdee-zmu-ozo data using vitals from 06/22/2016. IMMUNIZATIONS One [...] dishes 2. Prepare simple family meals 3. [place]oulder leaves 4. Take the trash out for [...] The texts and phone calls can WAIT. [place] law, effective July 04, 2006, says your child must be in a booster seat if they are ages 4 through 7 who weigh at least 40 pounds, unless they are 80 pounds or 4???9?? tall. DO NOT ALLOW ANYONE TO SMOKE AROUND YOUR CHILD. DIET Make sure that your child is eating breakfast in the morning school counselor. Encourage them to eat at least 3 [...] Where can I go for more information? [place] Academy of Pediatrics ( ) www.aap.org, HealthyChildren.org www.healthychildren.org Website and free downloadable taylor for smartphones: http://www.[employer]/ and http://www.Zuvvu/ documented in this encounter Progress Notes * Priya Sprague MD - 06/22/2016 10:47 AM CDT Adolescent WCC Reviewed Nurse's Adolescent Note PHX: depression, cutting Medications: none ROS Has been trying to eat more fruits and veggies. Has been trying to lose weight Stomachaches, Headaches: No Constipation/Diarrhea: No Girls: Menses Yes: monthly, lasts 7 days Social History: School: [employer], Grade 11th. Home:lives with mom Activity/Exercise: fair. With exercise, CP, SOB, dizziness? No Alcohol: denies Drugs:denies Sex:denies Smoking:denies Fsjgtasfpw-DRQ-1 score : 6 see scanned Mom reports [...] 98%ile (Z=2.10) based on CDC 2-20 Years dzswwx-jfk-vez data using vitals from 06/22/2016. 87%ile (Z=1.11) based on CDC 2-20 Years dlwbgsk-gaf-aup data using vitals from 06/22/2016. BP 124/64 [...] Where can I go for more information? [place] Academy [employer] Pediatrics ( ) www.aap.org HealthyChildren.org www.healthychildren.org U.S. Department of Health and Human Services www.hhs.gov Website and free downloadable taylor for smartphones: http://Giv.to.Courtanet/ Use safety retraint in car Lifestyle On [...] type documented in this encounter Care Teams Progressive Care Manager Relationship Specialty Start Date End Date Priya Sprague MD PCP - General Pediatrics 09/13/14 documented as of this encounter
--- OUTSIDE RECORDS SUMMARY | 2024-10-26 10:52 | XMS_ITS | Encounter Summary ---
Author Organization [facility] Address [address] [place] [address] Care Team Providers Care Sail Finisher Hand Name Role Phone Priya Sprague MD Primary Care Provider [phone] Reason for Visit * Reason Comments Pain Tailbone Encounter Details Date Type Department Care Team (Late st Contact Info) Description 04/10/2018 10:30 AM CDT Office Visit [facility] - Pediatrics [address] [place] [phone] Sudeep Gloria DO [address] [place] [phone] Coccygeal pain (Primary Dx) Social History [...] Where can I go for more information? [place] Academy [employer] Pediatrics ( ) www.aap.org HealthyChildren.org www.healthychildren.org U.S. Department of Health and Human Services www.hhs.gov Website and free downloadable taylor for smartphones: http://www.emere/ Use safety retraint in car Lifestyle On track( 016 10:41 AM CDT) No Kiana Shaw RN documented as of this encounter Visit Diagnoses Diagnosis Coccygeal pain- Primary Other disorder of coccyx documented in this encounter Care Teams Sail Finisher Hand Relationship Specialty Start Date End Date Priya Sprague MD PCP - General Pediatrics 09/13/14 documented as of this encounter
--- OUTSIDE RECORDS SUMMARY | 2024-10-26 10:52 | XMS_ITS | Encounter Summary ---
Author Organization [facility] Address [address] [place] [address] [place] [address] Care Team Providers Care Plant Electrician Name Role Phone Unavailable Primary Care Provider Unavailabl e Reason for Visit * Reason Comments Cough Ear Problem Encounter Details Date Type Department Care Team (Late st Contact Info) Description 03/01/2011 3:40 PM CDT Office Visit [facility] Medical [facility] - Pediatrics [address] [place] [phone] Terrie Anderson MD [address] [place] [address] Acute sinusitis, unspecified (Primary Dx) [...]
--- OUTSIDE RECORDS SUMMARY | 2024-10-26 10:52 | XMS_ITS | Encounter Summary ---
Author Organization [facility] Address [address] [facility] [place] [address] Care Team Providers Care Finisher Tailor Apprentice Name Role Phone Priya Sprague MD Primary Care Provider [phone] Reason for Visit * Reason Comments Imm Inj Encounter Details Date Type Department Care Team (Latest Contact Info) Description 04/18/2015 11:00 AM CDT Clinical Support [facility] Medical [facility] - Pediatrics [address] [place] [phone] Need for prophylactic vaccination and inoculation against [...] diseases documented in this encounter Care Teams Finisher Tailor Apprentice Relationship Specialty Start Date End Date Priya Sprague MD PCP - General Pediatrics 09/13/14 documented as of this encounter
--- OUTSIDE RECORDS SUMMARY | 2024-10-26 10:52 | XMS_ITS | Encounter Summary ---
Author Organization [facility] Address [address] [place] [address] Care Team Providers Care Skin Care Instructor Name Role Phone Unavailable Primary Care Provider Unavailabl e Reason for Visit * Reason Comments Complete Physical Exam Encounter Details Date Type Department Care Team (Late st Contact Info) Description 04/19/2011 2:30 PM CDT Office Visit [facility] Medical [facility] - Pediatrics [address] [place] [phone] Terrie Anderson MD [address] [place] [address] Routine infant or child health [...] 04/19/2011 3:1 1 PM CDT Growth Chart: [facility] (Girls, 2- 20 Years) documented in [...] BMI-for-age. 98.52% of growth percentile based on bslmhq-hrx-iif. 92.87% of growth percentile based on mlcitya-emj-eqv. IMMUNIZATIONS At the time of high school [...] Seat belt yes Wears a helment: no [place] teeth twice per day: sometimes she forgets [...] age Need for prophylactic vaccination with combined yeuulhpoht-ggrdogx-fbvuojecn (DTP) vaccine Obesity Obesity, unspecified documented in this encounter
--- OUTSIDE RECORDS SUMMARY | 2024-10-26 10:52 | XMS_ITS | Encounter Summary ---
Author Organization [facility] Address [address] [facility] [place] [address] Care Team Providers Care Administrator Pesticide Name Role Phone Unavailable Primary Care Provider Unavailabl e Reason for Visit * Reason Comments Cough since mid February Encounter Details Date Type Department Care Team (Late st Contact Info) Description 04/12/2011 10:40 AM CDT Office Visit [facility] - Pediatrics [address] [place] [phone] Terrie Anderson MD [address] [place] [address] Acute sinusitis, unspecified (Primary Dx) [...]
--- OUTSIDE RECORDS SUMMARY | 2024-10-26 10:52 | XMS_ITS | Referral Summary ---
Author Organization [facility] Address [address] [facility] [place] [address] Care Team Providers Care Foster Care Therapist Name Role Phone Priya Sprague MD Primary Care Provider [phone] Haja Garcia MD Unavailable Source Comments [facility],non-owned Affiliates and Associated Physician Practices is amultiple site organization consisting of ambulatory clinics and hospital sitesin [place], [place], [place] and [place]. This disclosure is being madepursuant to the Care Everywhere program and may not contain all information available regarding this patient. Last updated 18.[facility] Allergies No known active allergies Medications Be [...] Where can I go for more information? [employer] Academy of Pediatrics ( ) www.aap.org HealthyChildren.org www.healthychildren.org U.S. Department of Health and Human Services www.Animail.gov Website and free downloadable taylor for smartphones: http://www.iLike/ Use safety retraint in car Lifestyle On track( 016 10:41 AM CDT) No Yohana-Kiana Horn RN Care Teams Foster Care Therapist Relationship Specialty Start Date End Date Priya Sprague MD PCP - General Pediatrics 09/13/14 Haja Garcia MD [address] [facility] [address] [place] [address] PCP - Attributed-[facility] [facility] [place] 09/07/23
--- OUTSIDE RECORDS SUMMARY | 2024-10-26 10:52 | XMS_ITS | Encounter Summary ---
Author Organization [facility] Address [address] [facility] [place] [address] Care Team Providers Care Elevator Serviceman Name Role Phone Unavailable Primary Care Provider Unavailabl e Reason for Visit * Reason Comments Cough productive cough x3 weeks URI occasional sneezing, stuffy nose with greenish exudate x3 weeks Fever today; temp 101 Sore Throat today Encounter Details Date Type Department Care Team (Late st Contact Info) Description 03/23/2011 2:15 PM CDT Office Visit [facility] - Pediatrics [address] [place] [phone] Priya Srpague MD [address] [place] [phone] Acute sinusitis, unspecified (Primary Dx) Social [...]
--- OUTSIDE RECORDS SUMMARY | 2024-10-26 10:52 | XMS_ITS | Encounter Summary ---
Author Organization [facility] Address [address] [facility] [address] Care Team Providers Care Safety Counselor Name Role Phone Priya Sprague MD Primary Care Provider [phone] Reason for Visit * Reason Comments Ear Pain Bilateral ear pain x 5 days. Nasal congestion runny nose. No fever or drainage. Encounter Details Date Type Department Care Team (Late st Contact Info) Description 06/03/2016 11:15 AM CDT Office Visit [facility] - Pediatrics [address] [place] [phone] Priya Sprague MD [address] [place] [phone] Acute URI (Primary Dx); Decreased hearing [...] ears documented in this encounter Care Teams Safety Counselor Relationship Specialty Start Date End Date Priya Sprague MD PCP - General Pediatrics 09/13/14 documented as of this encounter
--- OUTSIDE RECORDS SUMMARY | 2024-10-26 10:52 | XMS_ITS | Encounter Summary ---
Author Organization [facility] Address [address] [place] [address] Care Team Providers Care A Auxiliary Name Role Phone Priya Sprague MD Primary Care Provider [phone] Reason for Visit * Reason Comments Imm Inj Encounter Details Date Type Department Care Team (Latest Contact Info) Description 09/13/2014 3:50 PM NURSING EXECUTIVE Clinical Support [facility] Medical [facility] - Pediatrics [address] [place] [phone] Need for prophylactic vaccination and inoculation against [...] diseases documented in this encounter Care Teams A Auxiliary Relationship Specialty Start Date End Date Priya Sprague MD PCP - General Pediatrics 09/13/14 documented as of this encounter
--- OUTSIDE RECORDS SUMMARY | 2024-10-26 10:52 | XMS_ITS | Clinical Summary ---
Author Organization [facility] [employer] Address [address] [facility] [place] [address] Care Team Providers Care Front Desk Specialist Name Role Phone Priya Sprague MD Primary Care Provider [phone] Haja Garcia MD Unavailable Source Comments [facility] [employer],non-owned Affiliates and Associated Physician Practices is amultiple site organization consisting of ambulatory clinics and hospital sitesin [place], [place], [place] and [place]. This disclosure is being madepursuant to the Care Everywhere program and may not contain all information available regarding this patient. Last updated 18.[facility] [employer] Allergies No known active allergies Medications Be [...] Where can I go for more information? [place] Academy of Pediatrics ( ) www.aap.org HealthyChildren.org www.healthychildren.org U.S. Department of Health and Human Services www.hhs.gov Website and free downloadable taylor for smartphones: http://www.Osper/ Use safety retraint in car Lifestyle On track( 016 10:41 AM CDT) No Kiana Shaw RN Care Teams Front Desk Specialist Relationship Specialty Start Date End Date Priya Sprague MD PCP - General Pediatrics 09/13/14 Haja Garcia MD [address] [facility] [address] [place] [id number] PCP - Attributed-[facility] [place] [facility] [place] 09/07/23
--- OUTSIDE RECORDS SUMMARY | 2024-10-26 10:52 | XMS_ITS | Encounter Summary ---
Author Organization [facility] Address [address] [place] [address] Care Team Providers Care Ruling Machine Feeder Name Role Phone Priya Sprague MD Primary Care Provider [phone] Reason for Visit * Reason Comments Swelling right side of jaw x1 month Encounter Details Date Type Department Care Team (Late st Contact Info) Description 07/26/2016 9:20 AM CDT Office Visit [facility] Medical [facility] - Pediatrics [address] [place] [address] 6 [place] [address] Mindi Collazo DO [address] [place] [phone] Mass (Primary Dx) Social History Tobacco [...] noticeable. Energy level sleeps more than before. [place] this was more school. No rashes. No [...] Where can I go for more information? [employer] ( ) www.aap.org HealthyChildren.org www.healthychildren.org U.S. Department of Health and Human Services www.hhs.gov Website and free downloadable taylor for [employer]: http://www.[employer]/ Use safety retraint in car Lifestyle On [...] PM CDT Narrative Resulting Agency Comment [facility] [address] ??[facility] [phone] Mindi Collazo DO LAB - SEROLOGY ORDERABLES [facility] INSURANCE BILL [address] [facility] [place] [address] * (ABNORMAL) MARLIN-MORAES VIRUS PANEL (07/26/2016 9:50 [...] PM CDT Narrative Resulting Agency Comment [facility] [address] ??[facility] [phone] Mindi Collazo DO LAB - CHEMISTRY ORDERABLES [facility] INSURANCE BILL [address] [place] [address] * (ABNORMAL) COMPREHENSIVE METABOLIC PANEL (07/26/2016 9:50 [...] PM CDT Narrative Resulting Agency Comment [facility] [address] ??[facility] [phone] Mindi Collazo DO LAB - CHEMISTRY ORDERABLES [facility] INSURANCE BILL [address] [place] [address] * CBC W AUTO DIFFERENTIAL (07/26/2016 9:50 [...] PM CDT Narrative Resulting Agency Comment [facility] [address] [facility] ??[facility] [phone] Mindi Collazo DO LAB - HEMATOLOG Y ORDERABLES Performing Organization Address [facility] Co de Phone Number [facility] INSURANCE BILL [address] [place] [address] * BARTONELLA HENSELAE ANTIBODY PANEL (07/26/2016 9:50 AM CDT) Bartonella henselae Antibody IgG Negative Neg:<1:32 0 titer [facility] INSURANCE BILL Bartonella henselae Antibody IgM Negative Neg:<1:10 0 titer [facility] INSURANCE BILL Comment: Results for this test are for research purposes only by the assay's metal pattern maker. ??The performance characteristics of this product have not been established. ??Results should not be used as a diagnostic procedure without confirmation of the diagnosis by another medically established diagnostic product or procedure. Blood specimen (specimen) BLOOD SPECIMEN / Unknown 07/26/2016 9:50 AM CDT 07/26/2016 1:00 PM CDT Narrative Resulting Agency Comment [facility] [address] ??[facility] [phone] Mindi Collazo DO LAB - SEROLOGY ORDERABLES Performing Organization Address City/[facility] Co de Phone Number [facility] INSURANCE BILL [address] [place] [address] documented in this encounter Visit Diagnoses Diagnosis Mass- Primary Localized superficial swelling, mass, or lump documented in this encounter Care Teams Ruling Machine Feeder Relationship Specialty Start Date End Date Priya Sprague MD PCP - General Pediatrics 09/13/14 documented as of this encounter
--- OUTSIDE RECORDS SUMMARY | 2024-10-26 10:52 | XMS_ITS | Patient Health Summary ---
Author Organization [id number] Address [address] [facility] [place] [address] Care Team Providers Care Expert Medical Writer Name Role Phone Priya Sprague MD Primary Care Provider [phone] Haja Garcia MD Unavailable Note from [facility],non-owned Affiliates and Associated Physician Practices is amultiple site organization consisting of ambulatory clinics and hospital sitesin [place], [place], [place] and [place]. This disclosure is being madepursuant to the Care Everywhere program and may not contain all information available regarding this patient. Last updated 18.[id number] Allergies No known active allergies Medications Be [...] henselae Antibody IgM Negative Neg:<1:10 0 titer [facility] Comment: Results for this test are for research purposes only by the assay's search consultant. ??The performance characteristics of this product have not been established. ??Results should not be used as a diagnostic procedure without confirmation of the diagnosis by another medically established diagnostic product or procedure. Blood specimen (specimen) BLOOD SPECIMEN / Unknown 07/26/2016 9:50 AM CDT 07/26/2016 1:00 PM CDT Narrative Resulting Agency Comment [address] ??[facility] [phone] Sudeep Gloria DO LAB - SEROLOGY ORDERABLES [facility] INSURANCE BILL [address] [place] [address] * (ABNORMAL) MYCOPLASMA PNEUMO ANTIBODY IGG/IGM PANEL (07/26/2016 9:50 AM CDT) Pathologist [facility] Mycoplasma pneumoniae Antibody IgG 1,927(H) 0 - [...] Comment [facility] [place] [address] ??[place] [phone] Sudeep Gloria DO LAB - SEROLOGY ORDERABLES [facility] INSURANCE BILL [address] [place] [address] * (ABNORMAL) STANLEY-MORAES VIRUS PANEL (07/26/2016 9:50 [...] PM CDT Narrative Resulting Agency Comment [facility] [address] [facility] ??[facility] [phone] Sudeep Gloria DO LAB - CHEMISTRY ORDERABLES [facility] INSURANCE BILL [address] [place] [address] * CBC W AUTO DIFFERENTIAL (07/26/2016 9:50 [...] PM CDT Narrative Resulting Agency Comment [facility] [address] [facility] ??[facility] [phone] Sudeep Gloria DO LAB - HEMATOLOG Y ORDERABLES [facility] INSURANCE BILL [address] [place] [address] * (ABNORMAL) COMPREHENSIVE METABOLIC PANEL (07/26/2016 9:50 [...] 1:00 PM CDT Narrative Resulting Agency Comment [facility] [place] [address] ??[facility] [phone] Sudeep Gloria DO LAB - CHEMISTRY ORDERABLES Performing Organization Address City/[facility]/ZIP Co de Phone Number [facility] INSURANCE BILL [address] [place] [address] * TSH (07/26/2016 9:50 AM CDT) TSH 1.690 0.450 - 4.500 uIU/mL [facility] INSURANCE BILL 07/26/2016 9:50 AM CDT 07/26/2016 1:00 PM CDT Narrative Resulting Agency Comment [facility] [address] ??[facility] [phone] Sudeep Gloria DO LAB - CHEMISTRY ORDERABLES Performing Organization Address [facility]/ZIP Co de Phone Number [facility] INSURANCE BILL [address] [place] [address] * (ABNORMAL) LIPID PROFILE (07/26/2016 9:50 AM [...] 1:00 PM CDT Narrative Resulting Agency Comment [facility] [address] ??[facility] [phone] Sudeep Gloria DO LAB - CHEMISTRY ORDERABLES [facility] INSURANCE BILL [address] [place] [address] * (ABNORMAL) STREP A SCREEN - POINT OF CARE (AMB) (09/25/2010 10:33 AM TERRAZZO MECHANIC) Strep A Rapid POCT positive NEGATIVE - POSITIVE Strep A Internal Control NEGATIVE - POSITIVE Throat swab (specimen) ENTIRE THROAT (SURFACE REGION OF NECK) / Unknown 09/25/2010 10:33 AM TERRAZZO MECHANIC Terrie Anderson MD LAB - POINT OF CARE ORDERABLES * GROSS + MICRO EXAM (07/28/2007 4:30 PM CDT) Result CASE NUMBER [id number] [facility] LAB PATH REPORT Comment: ORDERING PHYSICIAN [...] diameter. ??The specimen is serially sectioned, and outbound call center representative sections are submitted in cassette A [...] and interpreted by the attending (teaching) pathologist. Termite Inspector ? AD YARBROUGH RESIDENT IN PATHOLOG Mikala Reid M.D. PATHOLOGIST ?Ezekiel Eli M.D. ELECTRONICALLY NEVINEzekiel Sarabia MISCELLANEOUS SAMPLES / Unknown 07/28/2007 4:30 PM CDT 07/31/2007 8:08 AM CDT Historical Provider MD LAB - PATHOLOGY/C YTOLOGY ORDERABLES [facility] LAB PATH REPORT Care Teams Expert Medical Writer Relationship Specialty Start Date End Date Priya Sprague MD PCP - General Pediatrics 09/13/14 Haja Garcia MD [address] [facility] [address] [place] [address] PCP - Attributed-[employer] [place] [employer] [place] 09/07/23
--- OUTSIDE RECORDS SUMMARY | 2024-10-26 10:52 | XMS_ITS | Encounter Summary ---
Author Organization [facility] Address [address] [place] [address] Care Team Providers Care Family Services Coordinator Name Role Phone Terrie Anderson MD Primary Care Provider [phone] Encounter Details Date Type Department Care Team (Late st Contact Info) Description 07/28/2007 Orders Only [facility] - Laboratory [address] [place] [address] ProviderKd MD Social History Tobacco Use Types [...] PM CDT) Result CASE NUMBER [id number] [facility] LAB PATH REPORT Comment: ORDERING PHYSICIAN [...] diameter. ??The specimen is serially sectioned, and personal financial representative sections are submitted in cassette A [...] and interpreted by the attending (teaching) pathologist. [place]ra [place] ? AD YARBROUGH RESIDENT IN PATHOLOG Mikala Reid M.D. PATHOLOGIST ?Ezekiel Eli M.D. ELECTRONICALLY NEVIN Ezekiel Eli MISCELLANEOUS SAMPLES / Unknown 07/28/2007 4:30 PM CDT 07/31/2007 8:08 AM CDT Historical Provider LAB - PATHOLOGY/C YTOLOGY ORDERABLES [facility] LAB PATH REPORT documented in this encounter Visit Diagnoses Not on filedocumented in this encounter Care Teams Family Services Coordinator Relationship Specialty Start Date End Date Terrie Anderson MD PCP - General Pediatrics 11/19/11 09/12/14 documented as of this encounter
--- OUTSIDE RECORDS SUMMARY | 2024-10-26 10:52 | XMS_ITS | Encounter Summary ---
Author Organization [facility] Address [address] [facility] [place] [address] Care Team Providers Care Airborne Missions Systems Name Role Phone Priya Sprague MD Primary Care Provider [phone] Reason for Visit * Reason Comments URI x 2 weeks c/o cough, burning sinuses, runny stuffy nose, fever ^101. Sore throat. Encounter Details Date Type Department Care Team (Late st Contact Info) Description 10/28/2014 2:45 PM ADJUNCT ENGLISH INSTRUCTOR Office Visit [facility] Medical [facility] - Pediatrics [address] [place] [address] [address] [place] [address] Urbano العراقي MD [address] [place], [place] [phone] Sinusitis, acute (Primary Dx); Obesity Social History [...] (234 lb 3.2 oz) 10/28/2014 2:35 PM ADJUNCT ENGLISH INSTRUCTOR Height 168.9 cm (5' 6.5 ) 10/28/2014 2:35 PM ADJUNCT ENGLISH INSTRUCTOR Body Mass Index 37.23 10/28/2014 2:35 PM ADJUNCT ENGLISH INSTRUCTOR Body Mass Index Percentile 99.44% 10/28/2014 2:3 5 PM ADJUNCT ENGLISH INSTRUCTOR Growth Chart: [facility] [place]NOTE 2] (Girls, 2- 20 Years) documented in this [...] Encounter ??? amoxicillin-clavulanate (AUGMENTIN) 875-125 MG tablet NCT ENGLISH INSTRUCTOR documented in this encounter Plan of Treatment Not on file documented as of this encounter Visit Diagnoses Diagnosis Sinusitis, acute- Primary Acute sinusitis, unspecified Obesity Obesity, unspecified documented in this encounter Care Teams Airborne Missions Systems Relationship Specialty Start Date End Date Priya Sprague MD PCP - General Pediatrics 09/13/14 documented as of this encounter
--- OUTSIDE RECORDS SUMMARY | 2024-10-26 10:52 | XMS_ITS | Encounter Summary ---
Author Organization [facility] Address [address] [facility] [place] [address] Care Team Providers Care Photographic Laboratory Supervisor Name Role Phone Terrie Anderson MD Primary Care Provider [phone] Reason for Visit * Reason Comments Complete Physical Exam 9th grade physica l Encounter Details Date Type Department Care Team (Late st Contact Info) Description 07/05/2014 3:00 PM CDT Office Visit [facility] Medical [facility] - Pediatrics [address] [place] [phone] Priya Sprague MD [address] [place] [phone] Well child check (Primary Dx); BMI [...] 99%ile (Z=2.55) based on CDC 2-20 Years viaons-uoj-bfi data using vitals from 07/05/2014. 90%ile (Z=1.27) based on CDC 2-20 Years ahvorfp-jih-tba data using vitals from 07/05/2014. IMMUNIZATIONS At [...] machinery. Plan to ride with a designated sales route driver or to call for a ride [...] and regular physical ac tivity. ORAL HEALTH: [place] your teeth twice a day with a [...] normal, but having sex should be a purb-gfaiqkc-nqv decision. Delay having sex until you and [...] those for curfews or driving. Share in harpooner. Learn about how you can take on [...] PROMOTION OF COMMUNITY INTERACTION: Participate in social, mosque, cultural, volunteer or recreational activities. Advocate for [...] a TV or computer in your room. www.My [employer]: A great site for older teens that includes ways to communicate with peers when they experience online bullying that is not cool . www.[employer].org: A site for younger and older teens, as well as parents, with many suggestions oninternet safety www.Image Insighttz.org: A site presented by the National Center for Missing and Exploited Children with information for kids, teens and parents, much of it focused on avoiding cyber bullying. documented in this encounter Progress Notes * Priya Sprague MD - 07/05/2014 3:[address] [facility] Nurse Screen: Parental/Patient Concerns: none Diet: Milk 2%, 8-16 ounces per day. +cheese Vegetables: fair, fruits: good, Dental: regular dental visits? No Hearing / Vision: concerns? No //////////////////////////////////////////////////////////////////////////////// /////////////////// Note: PHX:healthy Medications: none ROS Stomachaches, Headaches: No Constipation/Diarrhea: No Girls: Menses Yes: monthl, regular, lasts 6 days Social History: School: [employer], Grade 9th. Home:lives with mom, dad Activity/Exercise: poor Alcohol:denies Drugs:denies Sex:denies Smoking:denies Wsidlakpbt-WMM-6 score : 17 (+) --with mom out [...] 2-20 Years data. 99%ile (Z=2.55) based on [facility] 2-20 Years dfbqoy-whm-tgb data using vitals from 07/05/2014. 90%ile (Z=1.27) based on CDC 2-20 Years fanpkgq-ifq-fpf data using vitals from 07/05/2014. BP 120/60 [...] classified documented in this encounter Care Teams Photographic Laboratory Supervisor Relationship Specialty Start Date End Date Terrie Anderson MD PCP - General Pediatrics 11/19/11 09/12/14 documented as of this encounter
--- OUTSIDE RECORDS SUMMARY | 2024-10-26 10:52 | XMS_ITS | Encounter Summary ---
Author Organization [facility] Address [address] [place] [address] Care Team Providers Care Cable Armorer Name Role Phone Unavailable Primary Care Provider Unavailabl e Reason for Visit * Reason Comments Enlarged Tonsils moreno on left side Sore Throat past 7 days Cough night and day Swelling Gland left neck Encounter Details Date Type Department Care Team (Latest Contact Info) Description 09/25/2010 9:50 AM SURFACE MINER Office Visit [facility] Medical [facility] - Pediatrics [address] [place] [address] 6 [place] [phone] Terrie Anderson MD [address] [address] Streptococcal pharyngitis (Primary Dx) Social [...] (122 lb 9.6 oz) 09/25/2010 10:02 AM SURFACE MINER Height - - Body Mass Index - [...] the electronic medical record Symptomatic treatment discussed. ACE MINER documented in this encounter Plan of Treatment Not on file documented as of this encounter Procedures Procedure Name Priority Date/Time Associated Diagnosis Comments STREP A SCREEN - POINT OF CARE (AMB) Routine 09/25/2010 10:33 AM SURFACE MINER Streptococcal pharyngitis documented in this encounter Results * (ABNORMAL) STREP A SCREEN - POINT OF CARE (AMB) (09/25/2010 10:33 AM SURFACE MINER) Strep A Rapid POCT positive NEGATIVE - POSITIVE Strep A Internal Control NEGATIVE - POSITIVE Throat swab (specimen) ENTIRE THROAT (SURFACE REGION OF NECK) / Unknown 09/25/2010 10:33 AM SURFACE MINER Terrie Anderson MD LAB - POINT OF CARE ORDERABLES documented in this encounter Visit Diagnoses Diagnosis Streptococcal pharyngitis- Primary Streptococcal sore throat documented in this encounter
--- OUTSIDE RECORDS SUMMARY | 2024-10-26 10:52 | XMS_ITS | Encounter Summary ---
Author Organization [facility] Address [address] [place] [address] Care Team Providers Care Practicing Dermatologist Name Role Phone Priya Sprague MD Primary Care Provider [phone] Encounter Details Date Type Department Care Team (Late st Contact Info) Description 07/26/2016 Orders Only [facility] Medical [facility] - Pediatrics [address] [place] [phone] [place] [address] [place] [phone] Social History Tobacco Use Types Packs/Day [...] Where can I go for more information? [place] [employer] ( ) www.aap.org HealthyChildren.org www.healthychildren.org U.S. Department of Health and Human Services www.hhs.gov Website and free downloadable taylor for [employer]: http://www.tutoria GmbH/ Use safety retraint in car Lifestyle On [...] PM CDT Narrative Resulting Agency Comment [facility] [address] ??[facility] [phone] Sudeep Gloria DO LAB - CHEMISTRY ORDERABLES [facility] INSURANCE BILL [address] [place] [address] * (ABNORMAL) LIPID PROFILE (07/26/2016 9:50 AM [...] PM CDT Narrative Resulting Agency Comment [facility] [address] [facility] ??[facility] [phone] Sudeep Gloria DO LAB - CHEMISTRY ORDERABLES [facility] INSURANCE BILL [address] [place] [address] documented in this encounter Visit Diagnoses Not on filedocumented in this encounter Care Teams Practicing Dermatologist Relationship Specialty Start Date End Date Priya Sprague MD PCP - General Pediatrics 09/13/14 documented as of this encounter
--- OUTSIDE RECORDS SUMMARY | 2024-10-26 10:53 | XMS_ITS | Encounter Summary ---
Author Organization [facility] Address [address] [facility] [place] [address] Phone Care Team Providers Care Refrigeration Installer Name Role Phone Pritesh Chu MD Primary Care Provider [phone] Markus Finley MD Unavailable [phone] Zander Cha MD Unavailable Encounter Details Date Type Department Care Team (Late st Contact Info) Description 09/11/2024 1:30 PM LAND ECONOMIST Clinical Support [facility] Oncology Services [address] [place] [phone] Markus Finley MD [address] [place] [address] Metastatic melanoma (HCC) Discharge Disposition: Discharged to home or Selfcare Social History Tobacco Use Types Packs/Day Years Used Date Smoking Tobacco: Former Cigarettes 0.5 5.6 S tarted: 04/18/2016 Smokeless Tobacco: Never Alcohol Use Standard Drinks/Week Comments Not Currently 0 (1 standard drink = 0.6 oz pur e alcohol) quit 2023 [facility] Utilities Answer Date Recorded In the past 12 months has th e electric, gas, oil, or water [employer] threatened to shut off services in your home? Patient declined 08/01/2024 Social Connection and Isolation Panel [NHANES] A nswer Date Recorded In a typical week, how many times do you talk on the phone with family, friends, or neighbors? Patient declined 08/01/2024 How often do you get togethe r with friends or relatives? Patient declined 08/01/2024 How often do you attend sabianist or orthodox serv ices? Patient declined 08/01/2024 [...] declined 08/01/2024 [facility] - Occupational Stress Questionnaire Answer [...] or living in a fpc (including now)? Patient declined 08/01/2024 Sexually Active [...] Comments Blood Pressure 131/90 09/11/2024 1:44 PM LAND ECONOMIST Pulse 83 09/11/2024 1:44 PM LAND ECONOMIST Temperature 36.6 ??C (97.8 ??F) 09/11/2024 1:44 PM CS T Respiratory Rate 18 09/11/2024 1:44 PM LAND ECONOMIST Oxygen Saturation 98% 09/11/2024 1:44 PM LAND ECONOMIST Inhaled Oxygen Concentration - - Weight 114.2 kg (251 lb 12.8 oz) 09/11/2024 1:44 PM LAND ECONOMIST Height - - Body Mass Index 40.64 [...] aid placed. Pt discharged in stable condition. ECONOMIST documented in this encounter Plan of Treatment Upcoming Encounters Date Type Department Care Team (Late st Contact Info) Description 11/15/2024 1:00 PM LAND ECONOMIST Lab [facility] [address] [place] [address] Markus Finley MD [address] [place], [place] [id number] 11/15/2024 2:00 PM LAND ECONOMIST [facility]ointment [facility] 1 [place] [address] Markus Finley MD [address] [place] [address] Discharge Disposition: Discharged to home or Selfcare documented as of this encounter Procedures Procedure Name Priority Date/Time Associated Diagnosis Comments CBC WITH AUTO DIFFERENTIAL STAT 09/11/2024 1:32 PM LAND ECONOMIST Metastatic melanoma (HCC) MAGNESIUM (MG) Routine 09/11/2024 1:32 PM LAND ECONOMIST CMP (COMPREHENSIVE METABOLIC PANEL) STAT 09/11/2024 1:32 PM LAND ECONOMIST Metastatic melanoma (HCC) COMPLETE BLOOD COUNT (CBC) WITH DIFF STAT 09/11/2024 1:32 PM LAND ECONOMIST Metastatic melanoma (HCC) documented in this encounter Results * (ABNORMAL) CBC WITH AUTO DIFFERENTIAL (09/11/2024 1:32 PM LAND ECONOMIST) WBC 9.23 4.00 - 12.00 10(3)/mcL 09/11/2024 2:07 PM LAND ECONOMIST [facility] RBC 4.07 3.80 - 5.30 10(6)/mcL 09/11/2024 2:07 PM [facility] HEMOGLOBIN (HGB) 12.9 12.0 - 15.8 g/dL 09/11/2024 2:07 PM [facility] HEMATOCRIT (HCT) 38.8 36.0 - 47.0 % 09/11/2024 2:07 PM [facility] MCV 95.3 82.0 - 96.0 fL 09/11/2024 2:07 PM [facility] MCH 31.7 26.0 - 34.0 pg 09/11/2024 2:07 PM [facility] MCHC 33.2 31.0 - 36.0 g/dL 09/11/2024 2:07 PM [facility] PLATELET COUNT 198 140 - 440 10(3)/mcL 09/11/2024 2:07 PM [facility] RDW 15.1 11.8 - 15.5 % 09/11/2024 2:07 PM [facility] MPV 9.5(L) 9.7 - 12.4 fL 09/11/2024 2:07 PM [facility] NEUTROPHILS 93.1(H) 47.0 - 73.0 % 09/11/2024 2:07 PM [facility] LYMPHOCYTES 3.8(L) 18.0 - 42.0 % 09/11/2024 2:07 PM [facility] MONOCYTES 3.0(L) 4.0 - 12.0 % 09/11/2024 2:07 PM [facility] EOSINOPHILS 0.0 0.0 - 5.0 % 09/11/2024 2:07 PM [facility] BASOPHILS 0.1 0.0 - 1.0 % 09/11/2024 2:07 PM [facility] ABSOLUTE NEUTROPHILS 8.59(H) 1.60 - 7.70 10(3)/mcL 09/11/2024 2:07 PM [facility] ABSOLUTE LYMPHOCYTES 0.35(L) 1.30 - 3.20 10(3)/mcL 09/11/2024 2:07 PM LAND ECONOMIST [facility] ABSOLUTE MONOCYTES 0.28 0.20 - 1.00 10(3)/mcL 09/11/2024 2:07 PM LAND ECONOMIST [facility] ABSOLUTE EOSINOPHIL 0.00 0.00 - 0.40 10(3)/mcL 09/11/2024 2:07 PM LAND ECONOMIST [facility] ABSOLUTE BASOPHILS 0.01 0.00 - 0.10 10(3)/mcL 09/11/2024 2:07 PM LAND ECONOMIST [facility] NRBC PER 100 WBC 0 09/11/20 24 2:07 PM [facility] RESULTS ARE CONSISTENT WITH PERIPHERAL SMEAR REVIEW Yes 09/11/2024 2:07 PM [facility] Blood Sub-Q Port Venou s Access Device (Medi-Port, Implanted Port) / Unknown 09/11/2024 1:32 PM LAND ECONOMIST 09/11/2024 1:33 PM LAND ECONOMIST us Markus Luana Finley MD HEMATOLOGY ORDERABLES Fi nal Result [facility] [address] [place] [address] * (ABNORMAL) CMP (COMPREHENSIVE METABOLIC PANEL) (09/11/2024 1:32 PM LAND ECONOMIST) SODIUM 139 136 - 145 mmol/L 09/11/2024 2:07 PM LAND ECONOMIST [facility] POTASSIUM 3.8 3.5 - 5.1 mmol/L 09/11/2024 2:07 PM LAND ECONOMIST [facility] CHLORIDE 107 98 - 107 mmol/L 09/11/2024 2:07 PM [facility] CO2, VENOUS 22 22 - 30 mmol/L 09/11/2024 2:07 PM LAND ECONOMIST [facility] ANION GAP 13.8 <18.0 mmol/L 09/11/2024 2:07 PM [facility] GLUCOSE 145(H) 70 - 99 mg/dL 09/11/2024 2:07 PM [facility] BUN 25(H) 5 - 18 mg/dL 09/11/2024 2:07 PM [facility] CREATININE, BLOOD 0.87 0.60 - 1.00 mg/dL 09/11/2024 2:07 PM [facility] BUN/CREATININE RATIO 29(H) 12 - 20 ratio 09/11/2024 2:07 PM [facility] TOTAL PROTEIN 6.2(L) 6.3 - 8.2 g/dL 09/11/2024 2:07 PM [facility] ALBUMIN 4.0 3.5 - 5.0 g/dL 09/11/2024 2:07 PM [facility] A/G RATIO 1.8 1.0 - 2.2 09/11/2024 2:07 PM [facility] CALCIUM 8.9 8.7 - 10.5 mg/dL 09/11/2024 2:07 PM [facility] T BILI 0.5 0.2 - 1.2 mg/dL 09/11/2024 2:07 PM [facility] SGOT (AST) 13 5 - 34 U/L 09/11/2024 2:07 PM [facility] SGPT (ALT) 56(H) 0 - 55 U/L 09/11/2024 2:07 PM [facility] ALKALINE PHOSPHATASE 58 40 - 150 U/L 09/11/2024 2:07 PM [facility] IS THE PATIENT REQUIRED TO BE FASTING? No 09/11/2024 2:07 PM [facility] GFR, ESTIMATED >60 >=60 09/11/2024 2:07 PM [facility] Comment: Creatinine Clearance is the preferred criteria for selecting drug dose adjustments in renally impaired patients. ??The GFR is provided as additional pertinent clinical information. GFR is reported in mL/min/1.73 sq m. Calculation based on the Chronic Kidney Disease Epidemiology Collaboration (CKD- EPI) equation refit without adjustment for race. GFR, EST. >60 >=60 024 2:07 PM LAND ECONOMIST [facility] GFR, EST. NONAFRICAN >60 >=60 09/11/2024 2:07 PM LAND ECONOMIST [facility] Blood Sub-Q Port Venou s Access Device (Medi-Port, Implanted Port) / Unknown 09/11/2024 1:32 PM LAND ECONOMIST 09/11/2024 1:33 PM LAND ECONOMIST Markus Finley MD CHEMISTRY ORDERABLES Fin al Result Performing Organization Address City/[facility]/ZIP Co de Phone Number [facility] [address] [place] [address] * MAGNESIUM (MG) (09/11/2024 1:32 PM LAND ECONOMIST) MAGNESIUM 2.1 1.6 - 2.6 mg/dL 09/11/2024 2:07 PM LAND ECONOMIST [facility] Blood Sub-Q Port Venou s Access Device (Medi-Port, Implanted Port) / Unknown 09/11/2024 1:32 PM LAND ECONOMIST 09/11/2024 1:33 PM LAND ECONOMIST Markus Finley MD CHEMISTRY ORDERABLES Fin al Result Performing Organization Address City/[facility]/ZIP Co de Phone Number [facility] [address] [place] [address] documented in this encounter Visit Diagnoses Diagnosis Metastatic melanoma (HCC) Melanoma of skin, site unspecified documented in this encounter Administered Medications Inactive Administered Medications - up to 3 most recent administrations Medication Order MAR Action Action Date Dose Rate Site 0.9 % sodium chloride solution at 999 mL/hr, Intravenous, ONCE, 1 dose, On Tue09/11/24 at 1400Indications:Metastatic melanoma (HCC) New Bag 09/11/2024 1:36 PM LAND ECONOMIST 999 mL/hr Heparin Na (Pork) Lock Flsh PF SOLN 50 Units 50 Units, Intravenous, PRN, Starting on Tue09/11/24 at 1333, Until Tue09/11/24 at 1745, Line CareIndications:Metastatic melanoma (HCC) Given 09/11/2024 2:45 PM LAND ECONOMIST 50 Units documented in this encounter Care Teams Refrigeration Installer Relationship Specialty Start Date End Date Pritesh Chu MD [address] [address] PCP - General Family Medicine 04/18/24 Markus Finley MD [address] [place] [address] Consulting Physician Medical Oncology 04/18/24 Zander Cha MD [address] [address] Consulting Physician Colon and Rectal Surgery 08/24/24 documented as of this encounter
--- OUTSIDE RECORDS SUMMARY | 2024-10-26 10:53 | XMS_ITS | Encounter Summary ---
Author Organization [employer] Care Team Providers Care Sprinkler Truck Driver Name Role Phone Pritesh Chu MD Primary Care Provider [phone] Markus Finley MD Unavailable [phone] Zander Cha MD Unavailable Encounter Details Date Type Department Care Team (Latest Contact Info) Description 09/07/2024 Travel Social History Tobacco Use Types Packs/Day Years Used Date Smoking Tobacco: Former Cigarettes 0.5 5.6 S tarted: 04/18/2016 Smokeless Tobacco: Never Alcohol Use Standard Drinks/Week Comments Not Currently 0 (1 standard drink = 0.6 oz pur e alcohol) quit 2023 [facility] Utilities Answer Date Recorded In the past 12 months has [employer], gas, oil, or water [email or web address] threatened to shut off services in your home? Patient declined 08/01/2024 Social Connection and Isolation Panel [NHANES] A nswer Date Recorded In a typical week, how many times do you talk on the phone with family, friends, or neighbors? Patient declined 08/01/2024 How often do you get togethe r with friends or relatives? Patient declined 08/01/2024 How often do you attend baptist or anglican serv ices? Patient declined 08/01/2024 Do you [...] medical care, and heating? Patient declined 08/01/2024 [facility] - Occupational Stress Questionnaire Answer Date [...] in the past 12 m [facility], were you homeless or living in [...] st Contact Info) Description 11/15/2024 1:00 PM GLASS SANDER Lab [facility] [address] [place] [address] Markus Finley MD [address] [place] [address] 11/15/2024 2:00 PM GLASS SANDER Appointment [facility] MRI [address] [place] [address] Markus Finley MD [address] [place] [address] Discharge Disposition: Discharged to home or Selfcare documented as of this encounter Visit Diagnoses Not on filedocumented in this encounter Care Teams Sprinkler Truck Driver Relationship Specialty Start Date End Date Pritesh Chu MD [address] [place], [place] [phone] PCP - General Family Medicine 04/18/24 Markus Finley MD [address] [place] [address] Consulting Physician Medical Oncology 04/18/24 Zander Cha MD [address] [place] [address] Consulting Physician Colon and Rectal Surgery 08/24/24 documented as of this encounter
--- OUTSIDE RECORDS SUMMARY | 2024-10-26 10:53 | XMS_ITS | Encounter Summary ---
Author Organization [facility] Address [address] [facility] [place] [address] Phone Care Team Providers Care Cable Mock Up Assembler Name Role Phone Pritesh Chu MD Primary Care Provider [phone] Markus Finley MD Unavailable Zander Cha MD Unavailable Reason for Referral * Consult, Test & Initiate Treatment (Routine) - Closed Specialty Diagnoses / Procedures Referred By Contross t Referred To Contact Diagnoses Metastatic melanoma (HCC) Markus Finley MD [address] [place] [address] Phone: tel: fax: [facility] Medical Group - General Surgery [facility] [address] [address] Phone: tel: fax: Referral ID Status Reason Start Date Expiration Date Visits Re quested Visits Authorized [id number] Closed 08/24/2024 1 1 Scheduling Instructions Dayanara is being referred for tissue sample for treatment options. Please contact patient for scheduling questions or concerns. Encounter Details Date Type Department Care Team (Late st Contact Info) Description 08/24/2024 11:30 AM CDT Clinical Support [facility] Oncology Services [address] [place] [address] Markus Finley MD [address] [place] [address] Diarrhea, unspecified type (Primary Dx); Metastatic melanoma [...] Recorded In the past 12 months has [employer], gas, oil, or water [employer] threatened to shut off services in your [...] medical care, and heating? Patient declined 08/01/2024 [facility] - Occupational Stress [...] st Contact Info) Description 11/15/2024 1:00 PM SECURITY SYSTEM ENGINEER Lab [facility] 1 [place] [address] Markus Finley MD [address] [place] [address] 11/15/2024 2:00 PM SECURITY SYSTEM ENGINEER [facility]ment [facility] 1 [place] [address] Markus Finley MD [address] [place] [address] Discharge Disposition: Discharged to home or Selfcare [...] - 145 mmol/L 08/24/2024 12:43 PM CDT [facility] POTASSIUM 3.5 3.5 - 5.1 mmol/L 08/24/2024 12:43 PM CDT [facility] CHLORIDE 106 98 - 107 mmol/L 08/24/2024 12:43 PM CDT [facility] CO2, VENOUS 22 22 - 30 mmol/L 08/24/2024 12:43 PM CDT [facility] ANION GAP 13.5 <18.0 mmol/L 08/24/2024 12:43 PM CDT [facility] GLUCOSE 98 70 - 99 mg/dL 08/24/2024 12:43 PM CDT [facility] BUN 17 5 - 18 mg/dL 08/24/2024 12:43 PM CDT [facility] CREATININE, BLOOD 0.95 0.60 - 1.00 mg/dL 08/24/2024 12:43 PM CDT [facility] BUN/CREATININE RATIO 18 12 - 20 ratio 08/24/2024 12:43 PM CDT [facility] TOTAL PROTEIN 5.6(L) 6.3 - 8.2 g/dL 08/24/2024 12:43 PM CDT [facility] ALBUMIN 3.5 3.5 - 5.0 g/dL 08/24/2024 12:43 PM CDT [facility] A/G RATIO 1.7 1.0 - 2.2 08/24/2024 12:43 PM CDT [facility] CALCIUM 8.7 8.7 - 10.5 mg/dL 08/24/2024 12:43 PM CDT [facility] T BILI 0.5 0.2 - 1.2 mg/dL 08/24/2024 12:43 PM CDT [facility] SGOT (AST) 27 5 - 34 U/L 08/24/2024 12:43 PM CDT [facility] SGPT (ALT) 107(H) 0 - 55 U/L 08/24/2024 12:43 PM CDT [facility] ALKALINE PHOSPHATASE 56 40 - 150 U/L 08/24/2024 12:43 PM CDT [facility] IS THE PATIENT REQUIRED TO BE FASTING? No 08/24/2024 12:43 PM CDT [facility] GFR, ESTIMATED >60 >=60 08/24/2024 12:43 PM CDT [facility] Comment: Creatinine Clearance is the preferred criteria for selecting drug dose adjustments in renally impaired patients. ??The GFR is provided as additional pertinent clinical information. GFR is reported in mL/min/1.73 sq m. Calculation based on the Chronic Kidney Disease Epidemiology Collaboration (CKD- EPI) equation refit without adjustment for race. GFR, EST. >60 >=60 024 12:43 PM CDT [facility] GFR, EST. NONAFRICAN >60 >=60 08/24/2024 12:43 PM CDT [facility] Blood Venipuncture / Unknown 08/24/2024 12:05 PM CDT 08/24/2024 12:05 PM CDT Markus Finley MD CHEMISTRY ORDERABLES Fin al Result [facility] [address] [place] [address] * C. DIFF BY PCR (08/24/2024 11:39 AM CDT) C DIFF TOXIN DNA BY PCR Negative Negative, Invalid 08/24/2024 1:42 PM CDT [facility] Other STOOL SPECIMEN / Unknown Non-Phlebotomy Collection / Unknown 08/24/2024 11:39 AM CDT 08/24/2024 11:39 AM CDT Markus Finley MD MICROBIOLOGY - GENERAL O RDERABLES Final Result [facility] [address] [place] [address] documented in this encounter Visit Diagnoses Diagnosis [...] documented as of this encounter Care Teams Cable Mock Up Assembler Relationship Specialty Start Date End Date Pritesh Chu MD [address] [address] PCP - General Family Medicine 04/18/24 Markus Finley MD [address] [place] [address] Consulting Physician Medical Oncology 04/18/24 Zander Cha MD #[address] [address] Consulting Physician Colon and Rectal Surgery 08/24/24 documented as of this encounter
--- OUTSIDE RECORDS SUMMARY | 2024-10-26 10:53 | XMS_ITS | Encounter Summary ---
Author Organization [facility] Address [address] [facility] [place] [place] [address] Phone Care Team Providers Care Ballpoint Pen Cartridge Tester Name Role Phone Kellen Chu MD Primary Care Provider [phone] Markus Finley MD Unavailable [phone] Zander Cha MD Unavailable Reason for Visit * Reason Comments Other Metastatic melanoma; subcutaneous nodule of left lower leg * Consult, Test & Initiate Treatment (Routine) - Closed Specialty Diagnoses / Procedures Referred By Contac t Referred To Contact Diagnoses Metastatic melanoma (HCC) Markus Finley MD [address] [place] [address] Phone: tel: fax: [facility] Medical Group - General Surgery [facility] #2 [facility] [address] [address] Phone: tel: fax: Referral ID Status Reason Start Date Expiration Date Visits Re quested Visits Authorized [id number] Closed 08/24/2024 1 1 Encounter Details Date Type Department Care Team (Late st Contact Info) Description 08/29/2024 1:00 PM CDT Office Visit [facility] - [place] [address] [phone] Markus Finley MD [address] [place] [address] Zander Cha MD #2 [facility] [address] [place] [address] Metastatic melanoma (HCC); Subcutaneous nodule of left lower extremity Discharge Disposition: Discharged to home or Selfcare Social History Tobacco Use Types Packs/Day Years Used Date Smoking Tobacco: Former Cigarettes 0.5 5.6 S tarted: 04/18/2016 Smokeless Tobacco: Never Alcohol Use Standard Drinks/Week Comments Not Currently 0 (1 standard drink = 0.6 oz pur e alcohol) quit 2023 [facility] [employer] Answer Date Recorded In the past 12 months has [employer], gas, oil, or water [employer] threatened to shut off services in your home? Patient declined 08/01/2024 Social Connection and Isolation Panel [NHANES] A nswer Date Recorded In a typical week, how many times do you talk on the phone with family, friends, or neighbors? Patient declined 08/01/2024 How often do you get togethe r with friends or relatives? Patient declined 08/01/2024 How often do you attend buddhist or pentecostal serv ices? Patient declined 08/01/2024 [...] care, and heating? Patient declined 08/01/2024 [facility] Health - Occupational Stress [...] any time in the past 12 m [facility], were you homeless or living in a [place] facility (including now)? Patient declined 08/01/2024 Sexually Active [...] melanoma excision with STSG SKIN GRAFT 08/25/2023 [place] node biopsy at the same time as [...] Session: Patient declined Stress: Patient Declined (08/01/2024) [facility] - Occupational Stress Questionnaire Feeling of Stress : Patient declined Recent Concern: Stress - Stress Concern Present (06/27/2024) [facility] - Occupational Stress Questionnaire Feeling of Stress : To some extent Social Integration: Patient Declined (08/01/2024) Social Connection and Isolation Panel [NHANES] Frequency of Communication with Friends and Family: Patient declined Frequency of Social Gatherings with Friends and Family: Patient declined Attends Buddhist Services: Patient declined Active Member of Clubs [...] More than three times a week Attends Buddhist Services: Never Active Member of Clubs or [...] PAINTER ERWIN Brand Cecile 2000 [facility] [id number] Indications: Pericardial effusion. Study Date07/26/2024 Technical quality: [...] lbs. BMI (BSA) 41.58 kg/m^2 (2.23 m^2) Marketing Services Specialist Bayron Bruno R Room [address] [facility] Referring Physician Silvio Physician Isabel Diaz [...] stated above. This note was dictated using GOODWIN dictation system and there may be errors in freight sorter. Despite proof reading the note, there may be mistakes and I apologize for those. By: Zander Cha MD, 08/29/2024, 2:16 PM CDT Primary Care Physician: KELLEN CHU MD documented in this encounter Plan of Treatment Upcoming Encounters Date Type Department Care Team (Late st Contact Info) Description 11/15/2024 1:00 PM LEARNING CENTER COORDINATOR Lab [facility] 1 [facility] [place] [address] Markus Finley MD [address] [place] [address] 11/15/2024 2:00 PM LEARNING CENTER COORDINATOR [facility]ment [facility] [address] [place] [address] Markus Finley MD [address] [place] [address] Discharge Disposition: Discharged to home or Selfcare documented as of this encounter Visit Diagnoses Diagnosis Metastatic melanoma (HCC) Melanoma of skin, site unspecified Subcutaneous nodule of left lower extremity documented in this encounter Care Teams Ballpoint Pen Cartridge Tester Relationship Specialty Start Date End Date Kellen Chu MD [address] [address] PCP - General Family Medicine 04/18/24 Markus Finley MD [address] [place] [address] Consulting Physician Medical Oncology 04/18/24 Zander Cha MD #[address] [address] Consulting Physician Colon and Rectal Surgery 08/24/24 documented as of this encounter
--- OUTSIDE RECORDS SUMMARY | 2024-10-26 10:53 | XMS_ITS | Clinical Summary ---
Author Organization [facility] Address [address] [place] [address] Phone Care Team Providers Care Lens Grinder Name Role Phone Pritesh Chu MD Primary Care Provider [phone] Markus Finley MD Unavailable [phone] Zander Cha MD Unavailable Allergies No known [...] Type Department Care Team Description 10/24/2024 Refill [facility] [address] [place] [phone] Markus Finley MD Medication Refill 10/21/2024 Travel 10/08/2024 Telephone [facility] [address] [place] [phone] Markus Finley MD 10/05/2024 Transcribe Orders [facility] [address] [place] [address] [place] [address] Markus Finley MD Metastatic melanoma (HCC) (Primary Dx) 10/02/2024 3:20 PM DYNAMICIST Office Visit [facility] [address] [place] [phone] Markus Finley MD Metastatic melanoma (HCC) (Primary Dx); New daily persistent headache Discharge Disposition: Discharged to home or Selfcare 10/02/2024 2:30 PM DYNAMICIST Clinical Support [facility] [address] [place] [phone] Markus Finley MD Metastatic melanoma (HCC) (Primary Dx) Discharge Disposition: Discharged to home or Selfcare 10/02/2024 Travel 09/25/2024 1:30 PM DYNAMICIST Clinical Support [facility] [address] [place] [address] Markus Finley MD Dehydration (Primary Dx); Metastatic melanoma (HCC); Nasal discomfort Discharge Disposition: Discharged to home or Selfcare 09/25/2024 Travel 09/25/2024 Patient Outreach [facility] [address] [place] [phone] Navigator, Digital [employer] Social Concerns 09/20/2024 [facility] [address] [place] [phone] Markus Finley MD Medication Refill 09/18/2024 1:30 PM DYNAMICIST Clinical Support [facility] [address] [place] [phone] Markus Finley MD Metastatic melanoma (HCC) Discharge Disposition: Discharged to home or Selfcare 09/18/2024 Travel 09/11/2024 1:40 PM DYNAMICIST Office Visit [facility] [address] [place] [phone] Markus Finley MD Discharge Disposition: Discharged to home or Selfcare 09/11/2024 1:30 PM DYNAMICIST Clinical Support [facility] [address] [place] [phone] Markus Finley MD Metastatic melanoma (HCC) Discharge Disposition: Discharged to home or Selfcare 09/11/2024 Travel 09/10/2024 [facility] [address] [place] [phone] Markus Finley MD Medication Refill 09/07/2024 11:30 AM CDT Clinical Support [facility] [address] [place] [phone] Markus Finley MD Metastatic melanoma (HCC) (Primary Dx) Discharge Disposition: Discharged to home or Selfcare 09/07/2024 Travel 09/07/2024 [facility]phone [facility] [address] [place] [phone] Markus Finley MD 09/04/2024 11:15 AM CDT Procedure Visit [facility] [address] [phone] Zander Cha MD Metastatic melanoma (HCC) (Primary Dx); Subcutaneous nodule of left lower extremity Discharge Disposition: Discharged to home or Selfcare 09/04/2024 Travel 08/29/2024 1:00 PM CDT Office Visit [facility] [address] [phone] Markus Finley MD Kumar, Raman, MD Metastatic melanoma (HCC); Subcutaneous nodule of left lower extremity Discharge Disposition: Discharged to home or Selfcare 08/29/2024 [facility]phone [facility] [address] [place] [phone] Markus Finley MD 08/29/2024 Travel 08/28/2024 [facility]ill [facility] [address] [place] [address] Markus Finley MD Medication Refill 08/27/2024 Telephone [facility] [address] [place] [phone] Markus Finley MD 08/24/2024 11:30 AM CDT Clinical Support [facility] [address] [place] [address] Markus Finley MD Diarrhea, unspecified type (Primary Dx); Metastatic melanoma (HCC) Discharge Disposition: Discharged to home or Selfcare 08/24/2024 Travel 08/22/2024 11:30 AM CDT Clinical Support [facility] [address] [place] [phone] Anthony Eckert MD Sandhu, Manpreet Kaur, MD Diarrhea due to drug (Primary Dx); Metastatic melanoma (HCC) Discharge Disposition: Discharged to home or Selfcare 08/22/2024 Travel 08/20/2024 1:40 PM CDT Clinical Support [facility] [address] [place] [phone] Markus Finley MD Metastatic melanoma (HCC) (Primary Dx) Discharge Disposition: Discharged to home or Selfcare 08/20/2024 1:00 PM CDT Office Visit [facility] [address] [place] [phone] Markus Finley MD Non-alcoholic fatty liver disease (Primary Dx); Diarrhea due to drug; Morbid obesity (HCC); Hypokalemia due to excessive gastrointestinal loss of potassium; Hypothyroidism due to medication; Metastatic melanoma (HCC); Subcutaneous nodule of left lower extremity Discharge Disposition: Discharged to home or Selfcare 08/20/2024 Travel 08/16/2024 Telephone [facility] [address] [place] [phone] Markus Finley MD 08/15/2024 11:35 AM CDT - 08/15/2024 11:59 PM CDT Hospital Encounter [facility] PET [address] [place] [phone] Markus Finley MD Discharge Disposition: Discharged to home or Selfcare 08/15/2024 11:30 AM CDT Clinical Support [facility] [address] [place] [phone] Markus Finley MD Metastatic melanoma (HCC) Discharge Disposition: Discharged to home or Selfcare 08/15/2024 Travel 08/14/2024 Telephone [facility] [address] [place] [phone] Markus Finley MD 08/13/2024 11:30 AM CDT Clinical Support [facility] [address] [place] [phone] Markus Finley MD Acute renal failure, unspecified acute renal failure type (HCC) (Primary Dx); Metastatic melanoma (HCC) Discharge Disposition: Discharged to home or Selfcare 08/13/2024 Travel 08/10/2024 11:00 AM CDT Clinical Support [facility] [address] [place] [phone] Markus Finley MD Metastatic melanoma (HCC) (Primary Dx); Acute renal failure, unspecified acute renal failure type (HCC) Discharge Disposition: Discharged to home or Selfcare 08/10/2024 Travel 08/09/2024 Patient Outreach [facility] [employer] [facility] [address] [place] [phone] Lucille Lawson RN Transition of Care (Week #1 ) 08/08/2024 11:30 AM CDT Clinical Support [facility] [address] [place] [phone] Markus Finley MD Metastatic melanoma (HCC) Discharge Disposition: Discharged to home or Selfcare 08/08/2024 Travel 08/07/2024 Patient Outreach [facility] [address] [place] [address] Lucille Lawson RN 08/06/2024 11:30 AM CDT Clinical Support [facility] [address] [place] [phone] Markus Finley MD Diarrhea due to drug (Primary Dx); Metastatic melanoma (HCC) Discharge Disposition: Discharged to home or Selfcare 08/06/2024 10:40 AM CDT Office Visit [facility] [address] [place] [phone] Markus Finley MD Metastatic melanoma (HCC) (Primary Dx); Hypothyroidism due to medication; Acute renal failure, unspecified acute renal failure type (HCC); Hypokalemia due to excessive gastrointestinal loss of potassium; Dehydration; Immunotherapy; Diarrhea due to drug Discharge Disposition: Discharged to home or Selfcare 08/06/2024 Post Discharge Follow-up [facility] Nursing Services [address] [place] [phone] Arline Rojo RN 08/06/2024 Travel 08/04/2024 Patient Outreach [facility] [address] [place] [phone] Yadira Gill RN Transition of Care 08/01/2024 2:20 PM CDT Office Visit [facility] [address] [place] [phone] Markus Finley MD Other specified hypothyroidism (Primary Dx); Diarrhea due to drug; Acute renal failure, unspecified acute renal failure type (HCC); Dehydration; Hypokalemia due to excessive gastrointestinal loss of potassium; Metastatic melanoma (HCC); Immunotherapy Discharge Disposition: Discharged to home or Selfcare 08/01/2024 12:38 PM CDT - 08/03/2024 6:15 PM CDT Hospital Encounter [facility] Med Surg [address] [place] [phone] Graciela Jonas PAC Landry, Scott Lewis, MD Krishna, Naveen Kumar, MD Acute renal failure, unspecified acute renal failure type (HCC) Discharge Disposition: [place] Health [place] [facility] 08/01/2024 10:30 AM CDT Clinical Support [facility] On[facility] Services [address] [place] [phone] Markus Finley MD Diarrhea due to drug (Primary Dx); Metastatic melanoma (HCC) Discharge Disposition: Discharged to home or Selfcare 08/01/2024 Post Discharge Follow-up [facility] Services [address] [place] [phone] Arline Rojo RN 08/01/2024 Travel 07/31/2024 Patient Outreach [facility] [address] [place] [phone] Maday Suarez RN Transition of Care (TCM 1st attempt) 07/25/2024 11:42 AM CDT - 07/30/2024 3:39 PM CDT Hospital Encounter [facility] Med Surg [address] [place] [phone] Gael Morales MD Dianati, Behfar, MD Patel, [...] 2023 [facility] Utilities Answer Date Recorded In the past [...] attend chur ch or [employer] services? Never 09/25/2024 Do you belong to any clubs o r organizations such as temple groups, unions, fraternal or athletic groups, or [...] medical care, and heating? Somewhat hard 09/25/2024 [facility] - [...] in the past 12 m [facility], were you homeless or living in a [facility] (including now)? No 09/25/2024 Sexually Active Control [...] Comments Blood Pressure 137/91 10/02/2024 2:56 PM DYNAMICIST Pulse 76 10/02/2024 2:56 PM DYNAMICIST Temperature 36.6 ??C (97.8 ??F) 10/02/2024 2:56 PM CS T Respiratory Rate 16 10/02/2024 2:56 PM DYNAMICIST Oxygen Saturation 98% 10/02/2024 2:56 PM DYNAMICIST Inhaled Oxygen Concentration - - Weight 119.7 kg (263 lb 12.8 oz) 10/02/2024 2:56 PM DYNAMICIST Height 167.6 cm (5' 6 ) 10/02/2024 2:56 PM DYNAMICIST Body Mass Index 42.58 10/02/2024 2:56 PM DYNAMICIST Plan of Treatment Upcoming Encounters Date Type Department Care Team (Late st Contact Info) Description 11/15/2024 1:00 PM DYNAMICIST Lab [facility] Laboratory Services [address] [place] [address] Markus Finley MD [address] [place] [address] 11/15/2024 2:00 PM DYNAMICIST Appointment [facility] MRI [address] [place] [address] Markus Finley MD [address] [place] [address] Discharge Disposition: Discharged to home or Selfcare Health Maintenance Due Date Last Done Comments SARS-COV-2 Immunization (#1) 2005 Pneumococcal Immunization Combined (1 of 2 - PCV) 2019 05/08/2002, 01/12/2001, 2000, Additional history exists Pap [...] Needs Food Insecurity Recommended 09/25/2024 11:54 AM DYNAMICIST [employer] [facility] Food Insecurity Needs Food Insecurity Recommended 09/25/2024 11:54 AM DYNAMICIST [facility] Financial Resource Needs, Food Insecurity Needs Financial Resource Strain, Food Insecurity Recommended 09/25/2024 11:54 AM DYNAMICIST [facility] - Mental Health Services Mental Health Evaluation Stress Recommended 09/25/2024 11:54 AM DYNAMICIST [place] [facility] Division of Mental Health - Inpatient Services Mental Health Evaluation, Mental Health Services Stress Recommended 09/25/2024 11:54 AM DYNAMICIST [facility] HealthCare - [facility] Home Care Services - Psychiatric Care Medications for Mental Health, Mental Health Education, Mental Health Evaluation, Mental Health Services Stress Recommended 09/25/2024 11:54 AM DYNAMICIST from Last 12 Months Procedures Procedure Name Priority Date/Time Associated Diagnosis Comments CBC WITH AUTO DIFFERENTIAL STAT 10/02/2024 3:08 PM DYNAMICIST Metastatic melanoma (HCC) THYROID STIMULATING HORMONE (TSH) STAT 10/02/2024 3:08 PM DYNAMICIST Metastatic melanoma (HCC) CMP (COMPREHENSIVE METABOLIC PANEL) STAT 10/02/2024 3:08 PM DYNAMICIST Metastatic melanoma (HCC) COMPLETE BLOOD COUNT (CBC) WITH DIFF STAT 10/02/2024 3:08 PM DYNAMICIST Metastatic melanoma (HCC) CBC WITH AUTO DIFFERENTIAL STAT 09/25/2024 2:03 PM DYNAMICIST Metastatic melanoma (HCC) THYROID STIMULATING HORMONE (TSH) STAT 09/25/2024 2:03 PM DYNAMICIST Metastatic melanoma (HCC) COMPLETE BLOOD COUNT (CBC) WITH DIFF STAT 09/25/2024 2:03 PM DYNAMICIST Metastatic melanoma (HCC) CMP (COMPREHENSIVE METABOLIC PANEL) STAT 09/25/2024 2:03 PM DYNAMICIST Metastatic melanoma (HCC) CBC WITH AUTO DIFFERENTIAL STAT 09/18/2024 2:21 PM DYNAMICIST Metastatic melanoma (HCC) THYROID STIMULATING HORMONE (TSH) STAT 09/18/2024 2:21 PM DYNAMICIST Metastatic melanoma (HCC) CMP (COMPREHENSIVE METABOLIC PANEL) STAT 09/18/2024 2:21 PM DYNAMICIST Metastatic melanoma (HCC) COMPLETE BLOOD COUNT (CBC) WITH DIFF STAT 09/18/2024 2:21 PM DYNAMICIST Metastatic melanoma (HCC) CBC WITH AUTO DIFFERENTIAL STAT 09/11/2024 1:32 PM DYNAMICIST Metastatic melanoma (HCC) COMPLETE BLOOD COUNT (CBC) WITH DIFF STAT 09/11/2024 1:32 PM DYNAMICIST Metastatic melanoma (HCC) CMP (COMPREHENSIVE METABOLIC PANEL) STAT 09/11/2024 1:32 PM DYNAMICIST Metastatic melanoma (HCC) MAGNESIUM (MG) Routine 09/11/2024 1:32 PM DYNAMICIST CBC WITH AUTO DIFFERENTIAL STAT 09/07/2024 11:55 [...] CBC WITH AUTO DIFFERENTIAL (10/02/2024 3:08 PM DYNAMICIST) Only the most recent of14 resultswithin the time period is included. WBC 6.72 4.00 - 12.00 10(3)/mcL 10/02/2024 3:24 PM DYNAMICIST [facility] RBC 3.73(L) 3.80 - 5.30 10(6)/mcL 10/02/2024 3:24 PM DYNAMICIST [facility] HEMOGLOBIN (HGB) 11.9(L) 12.0 - 15.8 g/dL 10/02/2024 3:24 PM DYNAMICIST [facility] HEMATOCRIT (HCT) 36.2 36.0 - 47.0 % 10/02/2024 3:24 PM DYNAMICIST [facility] MCV 97.1(H) 82.0 - 96.0 fL 10/02/2024 3:24 PM DYNAMICIST [facility] MCH 31.9 26.0 - 34.0 pg 10/02/2024 3:24 PM DYNAMICIST [facility] MCHC 32.9 31.0 - 36.0 g/dL 10/02/2024 3:24 PM DYNAMICIST [facility] PLATELET COUNT 204 140 - 440 10(3)/mcL 10/02/2024 3:24 PM [facility] RDW 14.3 11.8 - 15.5 % 10/02/2024 3:24 PM [facility] MPV 10.6 9.7 - 12.4 fL 10/02/2024 3:24 PM [facility] NEUTROPHILS 83.7(H) 47.0 - 73.0 % 10/02/2024 3:24 PM [facility] LYMPHOCYTES 10.7(L) 18.0 - 42.0 % 10/02/2024 3:24 PM [facility] MONOCYTES 5.4 4.0 - 12.0 % 10/02/2024 3:24 PM [facility] EOSINOPHILS 0.1 0.0 - 5.0 % 10/02/2024 3:24 PM [facility] BASOPHILS 0.1 0.0 - 1.0 % 10/02/2024 3:24 PM [facility] ABSOLUTE NEUTROPHILS 5.62 1.60 - 7.70 10(3)/[facility] 10/02/2024 3:24 PM [facility] ABSOLUTE LYMPHOCYTES 0.72(L) 1.30 - 3.20 10(3)/[facility] 10/02/2024 3:24 PM [facility] ABSOLUTE MONOCYTES 0.36 0.20 - 1.00 10(3)/[facility] 10/02/2024 3:24 PM [facility] ABSOLUTE EOSINOPHIL 0.01 0.00 - 0.40 10(3)/[facility] 10/02/2024 3:24 PM [facility] ABSOLUTE BASOPHILS 0.01 0.00 - 0.10 10(3)/[facility] 10/02/2024 3:24 PM [facility] NRBC PER 100 WBC 0 10/02/20 3:24 PM [facility] Blood Sub-Q Port Venou s Access Device (Medi-Port, Implanted Port) / Unknown 10/02/2024 3:08 PM [facility] 10/02/2024 3:08 PM DYNAMICIST Markus Finley MD HEMATOLOGY ORDERABLES Fi nal Result Performing Organization Address City/[facility]/ZIP Co de Phone Number [facility] [place] [address] * THYROID STIMULATING HORMONE (TSH) (10/02/2024 3:08 PM DYNAMICIST) Only the most recent of5 resultswithin the time period is included. TSH 1.466 0.300 - 5.000 mIU/L 10/02/2024 3:59 PM DYNAMICIST [facility] Blood Sub-Q Port Venou s Access Device (Medi-Port, Implanted Port) / Unknown 10/02/2024 3:08 PM DYNAMICIST 10/02/2024 3:08 PM DYNAMICIST Markus Finley MD CHEMISTRY ORDERABLES Fin al Result Performing Organization Address [facility] Co de Phone Number [facility] [address] [place] [address] * (ABNORMAL) CMP (COMPREHENSIVE METABOLIC PANEL) (10/02/2024 3:08 PM DYNAMICIST) Only the most recent of12 resultswithin the time period is included. SODIUM 136 136 - 145 mmol/L 10/02/2024 3:40 PM DYNAMICIST [facility] POTASSIUM 4.5 3.5 - 5.1 mmol/L 10/02/2024 3:40 PM DYNAMICIST [facility] CHLORIDE 109(H) 98 - 107 mmol/L 10/02/2024 3:40 PM DYNAMICIST [facility] CO2, VENOUS 21(L) 22 - 30 mmol/L 10/02/2024 3:40 PM DYNAMICIST [facility] ANION GAP 10.5 <18.0 mmol/L 10/02/2024 3:40 PM DYNAMICIST [facility] GLUCOSE 118(H) 70 - 99 mg/dL 10/02/2024 3:40 PM DYNAMICIST [facility] BUN 21(H) 5 - 18 mg/dL 10/02/2024 3:40 PM [facility] CREATININE, BLOOD 0.94 0.60 - 1.00 mg/dL 10/02/2024 3:40 PM [facility] BUN/CREATININE RATIO 22(H) 12 - 20 ratio 10/02/2024 3:40 PM [facility] TOTAL PROTEIN 6.2(L) 6.3 - 8.2 g/dL 10/02/2024 3:40 PM [facility] ALBUMIN 3.9 3.5 - 5.0 g/dL 10/02/2024 3:40 PM [facility] A/G RATIO 1.7 1.0 - 2.2 10/02/2024 3:40 PM [facility] CALCIUM 9.0 8.7 - 10.5 mg/dL 10/02/2024 3:40 PM [facility] T BILI 0.2 0.2 - 1.2 mg/dL 10/02/2024 3:40 PM [facility] SGOT (AST) 17 5 - 34 U/L 10/02/2024 3:40 PM [facility] SGPT (ALT) 52 0 - 55 U/L 10/02/2024 3:40 PM [facility] ALKALINE PHOSPHATASE 45 40 - 150 U/L 10/02/2024 3:40 PM [facility] IS THE PATIENT REQUIRED TO BE FASTING? No 10/02/2024 3:40 PM [facility] GFR, ESTIMATED >60 >=60 10/02/2024 3:40 PM [facility] Comment: Creatinine Clearance is the preferred criteria for selecting drug dose adjustments in renally impaired patients. ??The GFR is provided as additional pertinent clinical information. GFR is reported in mL/min/1.73 sq m. Calculation based on the Chronic Kidney Disease Epidemiology Collaboration (CKD- EPI) equation refit without adjustment for race. GFR, EST. >60 >=60 11/26/2 024 3:40 PM DYNAMICIST [facility] GFR, EST. NONAFRICAN >60 >=60 10/02/2024 3:40 PM DYNAMICIST [facility] Blood Sub-Q Port Venou s Access Device (Medi-Port, Implanted Port) / Unknown 10/02/2024 3:08 PM DYNAMICIST 10/02/2024 3:08 PM DYNAMICIST Markus Finley MD CHEMISTRY ORDERABLES Fin al Result Performing Organization Address City/[facility] Co de Phone Number [facility] [address] [place] [address] * MAGNESIUM (MG) (09/11/2024 1:32 PM DYNAMICIST) Only the most recent of2 resultswithin the time period is included. MAGNESIUM 2.1 1.6 - 2.6 mg/dL 09/11/2024 2:07 PM DYNAMICIST [facility] Blood Sub-Q Port Venou s Access Device (Medi-Port, Implanted Port) / Unknown 09/11/2024 1:32 PM DYNAMICIST 09/11/2024 1:33 PM DYNAMICIST Markus Finley MD CHEMISTRY ORDERABLES Fin al Result Performing Organization Address [facility] de Phone Number [facility] [place] [address] * PATHOLOGY SURGICAL (09/04/2024 1:02 PM CDT) Case Report Surgical Pathology Report ? Case: ? Authorizing Provider: ??Zander Cha MD ? Collected: ? 09/04/2024 01:02 PM ? Ordering Location: ? [facility] - ?Received: ?09/04/2024 01:03 PM ? General Surgery - [place] ? Pathologist: ? Romelia Horn MD PhD ? Specimen: ?Leg, Excision of skin lesion from left lower leg ? 09/06/2024 8:29 AM CDT [facility] FINAL DIAGNOSIS Skin, left lower leg, lesion, excision: - Consistent with metastatic melanoma, 4 mm - Sufficient tumor cells present for molecular studies if clinically indicated 09/06/2024 8:29 AM [facility] Comment A round nodular tumor is present in the dermis. The tumor cells are large epithelioid with large pleomorphic nuclei and prominent nucleoli. There are scant pigments suggesting melanin. 09/06/2024 8:29 AM CDT [facility] Pre-Operative Diagnosis Excision of skin lesion from left lower leg 09/06/2024 8:29 AM [facility] Gross Description A. Excision [...] 44 minutes. KS/sb 09/06/2024 8:29 AM CDT [facility] Microscopic Description Microscopic examination was performed which supports the final diagnosis. All control tissues stained appropriately. 09/06/2024 8:29 AM CDT [facility] Other LOWER LIMB STRUCTURE / Unknown Non-Phlebotomy Collection / Unknown 09/04/2024 1:02 PM CDT 09/04/2024 1:03 PM CDT us Zander Cha MD PATHOLOGY/CYTOLOGY ORDERABLES Fi nal Result [facility] [place] [address] * EXC SKIN MALIG 0.6-1CM TRUNK,ARM,LEG (09/04/2024 [...] 2 cm. ?? Surgeon: Zander Cha MD Landscape Management Technician: Debo Bush RN Anesthesia: ??3 cc 1% [...] Negative Negative, Invalid 08/24/2024 1:42 PM CDT [facility] Other STOOL SPECIMEN / Unknown Non-Phlebotomy Collection / Unknown 08/24/2024 11:39 AM CDT 08/24/2024 11:39 AM CDT Markus Finley MD MICROBIOLOGY - GENERAL O RDERABLES Final Result [facility] [address] [place] [address] * PET CT TUMOR IMAGING WHOLE BODY [...] 08/16/2024 11:30 AM - Electronically signed by ??Zachariha Carrizales M.D. LB: KRUNAL D: ??08/16/2024 11:30 AM T: ??08/16/2024 11:30 AM Report ID: [id number] Reading Location: ??[id number] Procedure Note Zachariah Carrizales MD - 08/16/2024 [...] Zachariah Carrizales M.D. LB: KRUNAL Report ID: [id number] Reading Location: [id number] IMPRESSION: Hypermetabolic left inguinal lymph node measuring [...] SUV of 1.1 compared to 4.1 previously. [facility] Luana Finley MD IM PET Final Re sult * (ABNORMAL) BASIC METABOLIC PANEL W/ CALCIUM TOTAL (08/10/2024 11:20 AM CDT) Only the most recent of8 resultswithin the time period is included. SODIUM 133(L) 136 - 145 mmol/L 08/10/2024 11:56 AM CDT [facility] POTASSIUM 3.9 3.5 - 5.1 mmol/L 08/10/2024 11:56 AM CDT [facility] CHLORIDE 105 98 - 107 mmol/L 08/10/2024 11:56 AM CDT [facility] CO2, VENOUS 23 22 - 30 mmol/L 08/10/2024 11:56 AM CDT [facility] ANION GAP 8.9 <18.0 mmol/L 08/10/2024 11:56 AM CDT [facility] GLUCOSE 138(H) 70 - 99 mg/dL 08/10/2024 11:56 AM CDT [facility] BUN 15 5 - 18 mg/dL 08/10/2024 11:56 AM CDT [facility] CREATININE, BLOOD 0.86 0.60 - 1.00 mg/dL 08/10/2024 11:56 AM CDT [facility] BUN/CREATININE RATIO 17 12 - 20 ratio 08/10/2024 11:56 AM CDT [facility] CALCIUM 8.9 8.7 - 10.5 mg/dL 08/10/2024 11:56 AM CDT [facility] GFR, ESTIMATED >60 >=60 08/10/2024 11:56 AM CDT [facility] Comment: Creatinine Clearance is the preferred criteria for selecting drug dose adjustments in renally impaired patients. ??The GFR is provided as additional pertinent clinical information. GFR is reported in mL/min/1.73 sq m. Calculation based on the Chronic Kidney Disease Epidemiology Collaboration (CKD- EPI) equation refit without adjustment for race. GFR, EST. >60 >=60 024 11:56 AM CDT [facility] GFR, EST. NONAFRICAN >60 >=60 08/10/2024 11:56 AM CDT [facility] Blood Sub-Q Port Venou s Access Device (Medi-Port, Implanted Port) / Unknown 08/10/2024 11:20 AM CDT 08/10/2024 11:20 AM CDT us Lee Lan MD CHEMISTRY ORDERABLES Fin al Result [facility] [address] [place] [address] * THYROXINE (T4) FREE (08/03/2024 4:32 AM CDT) T4 FREE 0.7 0.7 - 1.9 ng/dL 08/03/2024 7:20 AM CDT [facility] Blood Venipuncture / Unknown 08/03/2024 4:32 AM CDT 08/03/2024 6:28 AM CDT Urbano Quiñonez MD CHEMISTRY ORDERABLES Final Result Performing Organization Address City/[facility]/ZIP Co de Phone Number [facility] [address] [place] [address] * Triiodothyrinine (T3) Free (08/03/2024 4:32 AM CDT) FREE T3 1.6 1.6 - 3.9 pg/mL 08/03/2024 4:08 PM CDT [facility] Blood Venipuncture / Unknown 08/03/2024 4:32 AM CDT 08/03/2024 6:28 AM CDT Urbano Quiñonez MD CHEMISTRY ORDERABLES Final Result Performing Organization Address [facility] Co de Phone Number [facility] [address] [place] [address], [place] * RHYTHM STRIP (08/03/2024 12:00 AM CDT) Only the most recent of17 resultswithin the time period is included. 08/03/2024 us Provider Scan IMG ECG ORDERABLES Final Result RESULTING AGENCY * Blood Culture #2 (08/01/2024 3:48 PM CDT) Only the most recent of2 resultswithin the time period is included. CULTURE RESULTS NO GROWTH WITHIN 5 DAYS, FINAL RESULT 08/06/2024 5:01 PM CDT [facility] Culture BLOOD SPECIMEN / Unknown Venipuncture / Unknown 08/01/2024 3:48 PM CDT 08/01/2024 4:10 PM CDT us Gael Morales MD MICROBIOLOGY - GENERAL ORD ERABLES Final Result [facility] [address] [place] [address], [place] * XR CHEST SINGLE VIEW PORTABLE [...] PM T: ??08/01/2024 2:59 PM Report ID: [id number] Reading Location: ??[id number] Procedure Note Nisreen Lara MD - 08/01/2024 [...] Nisreen Esteban M.D. FT: FT Report ID: [id number] Reading Location: [place] [address] IMPRESSION: No acute cardiopulmonary abnormality. Gael Morales [...] ORDERABLES Susan l Result Performing Organization Address City/[facility] Co de Phone Number [facility] [address] [place] [address] * Gold Top Tube (08/01/2024 1:30 PM CDT) Blood No Phlebotomy Charged / Unknown 08/01/2024 1:30 PM CDT 08/01/2024 1:30 PM CDT Gael Morales MD CHEMISTRY ORDERABLES Final Result Performing Organization Address City/[facility] Co de Phone Number [facility] [address] [place] [address] * Blue Top Tube (08/01/2024 1:30 PM CDT) Blood No Phlebotomy Charged / Unknown 08/01/2024 1:30 PM CDT 08/01/2024 1:30 PM CDT Gael Morales MD HEMATOLOGY ORDERABLES Susan l Result Performing Organization Address City/[facility] Co de Phone Number [facility] [address] [place] [address] * Lavender Top Tube (08/01/2024 1:30 PM CDT) Blood No Phlebotomy Charged / Unknown 08/01/2024 1:30 PM CDT 08/01/2024 1:30 PM CDT Gael Morales MD HEMATOLOGY ORDERABLES Susan l Result Performing Organization Address City/[facility] Co de Phone Number [facility] [address] [place] [address] * Hepatitis Panel Acute (AHP) (07/29/2024 4:30 AM CDT) Pathologist [facility] HEPATITIS A IGM ANTIBODY NON DETECTED NON DETECTED 07/29/2024 3:37 PM CDT [facility] Comment: IGM Antibodies to HAV not detected. ??Does not exclude early acute or recovered HAV infection. HEP B CORE AB (IGM) NON DETECTED NON DETECTED 07/29/2024 3:37 PM CDT [facility] Comment:IGM anti-HBC not det ected. Does not exclude the possibility of exposure to or infection with HBV. HEPATITIS B SURFACE ANTIGEN NON DETECTED NON DETECTED 07/29/2024 3:37 PM CDT [facility] Comment:A nonreactive test r esult does not [...] 0.17 <1 S/CO 07/29/2024 3:37 PM CDT [facility] Comment: Signal/Cutoff ratio ??< 0.79 is Nondetected Signal/Cutoff ratio 0.80-0.99 is Grayzone Signal/Cutoff ratio > 0.99 is Detected Supplemental assays are recommended if signal/cutoff ratio is >/=1.00. ??Signal/cutoff ratio result >/= 5.00 is 97% predictive of positivity for recombinant immunoblot assay (RIBA) and will be reported to the [place] [facility] Public [facility] as required. Blood Venipuncture / Unknown 07/29/2024 4:30 AM CDT 07/29/2024 5:15 AM CDT us Urbano Quiñonez MD HEMATOLOGY ORDERABLES Final Result [facility] [address] [place] [address], * C4 Complement (07/29/2024 4:30 AM CDT) [facility] C4 COMPLEMENT 23 15 - 57 mg/dL 07/29/2024 3:18 PM CDT [facility] Blood Venipuncture / Unknown 07/29/2024 4:30 AM CDT 07/29/2024 5:15 AM CDT Urbano Quiñonez MD CHEMISTRY ORDERABLES Final Result [facility] [address] [place] [address], [place] * C3 Complement Globulin B-1C (07/29/2024 4:30 AM CDT) C3 COMPLEMENT 133 83 - 193 mg/dL 07/29/2024 3:18 PM CDT [facility] Blood Venipuncture / Unknown 07/29/2024 4:30 AM CDT 07/29/2024 5:15 AM CDT Urbano Quiñonez MD CHEMISTRY ORDERABLES Final Result Performing Organization Address City/[facility]/ZIP Co de Phone Number [facility] [address] [place] [address], [place] * GLOMERULAR BASEMENT MEMBRANE AB, IGG (07/28/2024 10:15 AM CDT) GLOMERULAR BASEMENT MEMBRANE (GBM) <0.2 <1.0 AI 08/07/2024 12:48 PM CDT [facility] Blood Venipuncture / Unknown 07/28/2024 10:15 AM CDT 07/28/2024 12:09 PM CDT Narrative [facility] - 08/07/2024 12:48 PM CDT Antibody testing was performed by multiplex flow immunoassay on the Prestodiag platform. us Urbano Quiñonez MD IMMUNOLOGY ORDERABLES Final Result [facility] [address] [place] [address], [place] * ANCA MPO PR3 (07/28/2024 10:15 AM CDT) PROTEINASE 3 AB <0.2 <1.0 AI 12:48 PM CDT [facility] MYELOPEROXIDASE AB <0.2 <1.0 AI 2023 12:48 PM CDT [facility] Blood Venipuncture / Unknown 07/28/2024 10:15 AM CDT 07/28/2024 12:09 PM CDT us Urbano Quiñonez MD IMMUNOLOGY ORDERABLES Final Result [facility] [address] [place] [address], * ANCA IFA SCREEN (07/28/2024 10:15 AM CDT) ANCA IFA SCREEN <1:20 <1:20 titer 07/30/20 24 12:14 PM CDT [facility] Comment: Expected result is < 1:10. ANCA TITER Not Applicable <1:20, Not Applicable titer 07/30/2024 12:14 PM CDT [facility] ANCA PATTERN Not Applicable 07/30/2024 12:14 PM CDT [facility] Comment: Antineutrophil cytoplasmic antibodies (ANCA) are found [...] IMMUNOLOGY ORDERABLES Final Result Performing Organization Address City/[facility] Co de Phone Number [facility] [address] [place] [address], [place] * (ABNORMAL) Ur Protein/Creatinine Ratio (07/28/2024 10:15 AM CDT) [facility] UR PROTEIN RAND, QT 170.7 mg/dL 07/28/2024 12:27 PM CDT [facility] Comment:No reference range h as been established. Consider Clinical Correlation. URINE CREATININE 532.6 mg/dL 07/28/2024 12:27 PM CDT [facility] Comment:No reference range h as been established. Consider Clinical Correlation. URINE PROTEIN/CREATIN INE RATIO 0.32(H) <0.25 07/28/2024 12:27 PM CDT [facility] Urine Non-Phlebotomy Collection / Unknown 07/28/2024 10:15 AM CDT 07/28/2024 12:09 PM CDT Urbano Quiñonez MD URINE ORDERABLES Final Resu lt Performing Organization Address [facility] Co de Phone Number [facility] [address] [place] [address] * Hepatitis C Antibody (07/28/2024 10:15 AM CDT) hepatitis C antibody 0.18 <1 S/CO 07/28/2024 10:27 PM CDT [facility] Comment: Signal/Cutoff ratio ??< 0.79 is Nondetected Signal/Cutoff ratio 0.80-0.99 is Grayzone Signal/Cutoff ratio > 0.99 is Detected Supplemental assays are recommended if signal/cutoff ratio is >/=1.00. ??Signal/cutoff ratio result >/= 5.00 is 97% predictive of positivity for recombinant immunoblot assay (RIBA) and will be reported to the [place] Department [facility] Public [facility] as required. Blood Venipuncture / Unknown 07/28/2024 10:15 AM CDT 07/28/2024 12:09 PM CDT us Urbano Quiñonez MD CHEMISTRY ORDERABLES Final Result Performing Organization Address City/[facility]/ZIP Co de Phone Number [facility] [address] [place] [address], [place] * Antinuclear Antibody (BARRETT), Titer If Pos (07/28/2024 10:15 AM CDT) Pathologist [facility] BARRETT SCREEN Negative Negative titer 07/30/2024 11:28 AM CDT [facility] Comment: Antinuclear autoantibodies not detected by IFA at a 1:80 screening dilution of HEp-2 cells. BARRETT TITER Not Applicable Negative, See comment, Not Applicable titer 07/30/2024 11:28 AM CDT [facility] Comment: Antinuclear autoantibodies not detected by IFA at a 1:80 screening dilution of HEp-2 cells. BARRETT PATTERN NOT APPLICABLE 07/30/2024 11:28 AM CDT [facility] Blood Venipuncture / Unknown 07/28/2024 10:15 AM CDT 07/28/2024 12:09 PM CDT us Urbano Quiñonez MD IMMUNOLOGY ORDERABLES Final Result Performing Organization Address City/[facility]/ZIP Co de Phone Number [facility] [address] [place] [address], [place] * US RENAL COMPLETE (07/27/2024 12:40 [...] PM T: ??07/27/2024 12:49 PM Report ID: [id number] Reading Location: ??[id number] Procedure Note Piero Chapman MD - 07/27/2024 [...] Piero Chapman M.D. KN: KHARI Report ID: [id number] Reading Location: [id number] IMPRESSION: Normal kidneys. Debris within the bladder. Correlate with urinalysis. Brayan Kang MD [facility] ORDERABLES Final Resul t from Last 3 Months Insurance [address] [place] [id number] MEDICAID [place] Advance Directives * Full Code (Latest Code [...] measures to stabilize the patient. Care Teams Lens Grinder Relationship Specialty Start Date End Date Pritesh Chu MD [address] [address] PCP - General Family Medicine 04/18/24 Markus Finley MD [address] [place] [address] Consulting Physician Medical Oncology 04/18/24 Zander Cha MD [address] [address] Consulting Physician Colon and Rectal Surgery 08/24/24
--- OUTSIDE RECORDS SUMMARY | 2024-10-26 10:53 | XMS_ITS | Encounter Summary ---
Author Organization [employer] Care Team Providers Care Wire Frame Dipper Name Role Phone Pritesh Chu MD Primary Care Provider [phone] Markus Finley MD Unavailable [phone] Encounter Details Date Type Department Care Team (Latest Contact Info) Description 08/22/2024 Travel Social History Tobacco Use Types Packs/Day Years Used Date Smoking Tobacco: Former Cigarettes 0.5 8.5 S tarted: 04/18/2016 Smokeless Tobacco: Never Alcohol Use Standard Drinks/Week Comments Yes 0 (1 standard drink = 0.6 oz pur e alcohol) [facility] Utilities Answer Date Recorded In the past 12 months has [employer], gas, oil, or water [employer] threatened to shut off services in your home? Patient declined 08/01/2024 Social Connection and Isolation Panel [NHANES] A nswer Date Recorded In a typical week, how many times do you talk on the phone with family, friends, or neighbors? Patient declined 08/01/2024 How often do you get togethe r with friends or relatives? Patient declined 08/01/2024 How often do you attend mormonism or hindu serv ices? Patient declined 08/01/2024 Do you [...] and heating? Patient declined 08/01/2024 [facility] - Occupational Stress Questionnaire Answer [...] in the past [address] [facility], were you homeless or living in [...] st Contact Info) Description 11/15/2024 1:00 PM CREDIT REPRESENTATIVE Lab [facility] [address] [place] [address] Markus Finley MD [address] [place] [address] 11/15/2024 2:00 PM CREDIT REPRESENTATIVE Appointment [facility] [address] [place] [address] Markus Finley MD [address] [place] [address] Discharge Disposition: Discharged to home or Selfcare documented as of this encounter Visit Diagnoses Not on filedocumented in this encounter Care Teams Wire Frame Dipper Relationship Specialty Start Date End Date Pritesh Chu MD [address] [place] [address] PCP - General Family Medicine 04/18/24 Markus Finley MD [address] [place] [address] Consulting Physician Medical Oncology 04/18/24 documented as of this encounter
--- OUTSIDE RECORDS SUMMARY | 2024-10-26 10:53 | XMS_ITS | Encounter Summary ---
Author Organization [facility] Address [address] [place] [address] Phone Care Team Providers Care Learning Technologies Specialist Name Role Phone Pritesh Chu MD Primary Care Provider [phone] Markus Finley MD Unavailable [phone] Zander Cha MD Unavailable Reason for Visit * Reason Onset Date Comments Medication Refill 08/28/2024 Encounter Details Date Type Department Care Team (Late st Contact Info) Description 08/28/2024 Refill [facility] On[facility] Services [address] [place] [phone] Markus Finley MD [address] [place] [address] Medication Refill Social History Tobacco Use Types Packs/Day Years Used Date Smoking Tobacco: Former Cigarettes 0.5 8.5 S tarted: 04/18/2016 Smokeless Tobacco: Never Alcohol Use Standard Drinks/Week Comments Yes 0 (1 standard drink = 0.6 oz pur e alcohol) [facility] Utilities Answer Date Recorded In the past [...] How often do you attend islam or spiritism serv ices? Patient declined 08/01/2024 [...] medical care, and heating? Patient declined [facility]/01/[facility] [...] Info) Description 11/15/2024 1:00 PM HOME CARE GIVER Lab [facility] [address] [place] [address] Markus Finley MD [address] [place] [address] 11/15/2024 2:00 PM HOME CARE GIVER [facility]ment [facility] [address] [place] [address] Markus Finley MD [address] [place] [address] Discharge Disposition: Discharged to home or Selfcare documented as of this encounter Visit Diagnoses Diagnosis Metastatic melanoma (HCC) Melanoma of skin, site unspecified documented in this encounter Care Teams Learning Technologies Specialist Relationship Specialty Start Date End Date Pritesh Chu MD [address] [place] [address] PCP - General Family Medicine 04/18/24 Markus Finley MD [address] [place] [address] Consulting Physician Medical Oncology 04/18/24 Zander Cha MD [address] [address] Consulting Physician Colon and Rectal Surgery 08/24/24 documented as of this encounter
--- OUTSIDE RECORDS SUMMARY | 2024-10-26 10:53 | XMS_ITS | Encounter Summary ---
Author Organization [facility] Address [address] [place] [address] Phone Care Team Providers Care Wardrobe Attendant Name Role Phone Pritesh Chu MD Primary Care Provider [phone] Markus Finley MD Unavailable [phone] Zander Cha MD Unavailable Encounter Details Date Type Department Care Team (Late st Contact Info) Description 09/07/2024 Telephone [facility] Oncology Services [address] [place] [phone] Markus Finley MD [address] [place] [address] Social History Tobacco Use Types Packs/Day Years Used Date Smoking Tobacco: Former Cigarettes 0.5 5.6 S tarted: 04/18/2016 Smokeless Tobacco: Never Alcohol Use Standard Drinks/Week Comments Not Currently 0 (1 standard drink = 0.6 oz pur e alcohol) quit 2023 [facility] Utilities Answer Date Recorded In the past 12 months has [employer], gas, oil, or water company threatened to [...] How often do you attend pentecostal or yazidi serv ices? Patient declined 08/01/2024 [...] medical care, and heating? Patient declined 08/01/2024 [facility] Occupat ional [facility] - Occupational Stress Questionnaire Answer [...] st Contact Info) Description 11/15/2024 1:00 PM BURNER OPERATOR Lab [facility] Services [address] [place] [address] Markus Finley MD [address] [place] [address] 11/15/2024 2:00 PM BURNER OPERATOR Appointment [facility] MRI [address] [place] [phone] Markus Finley MD [address] [place] [address] Discharge Disposition: Discharged to home or Selfcare documented as of this encounter Visit Diagnoses Not on filedocumented in this encounter Care Teams Wardrobe Attendant Relationship Specialty Start Date End Date Pritesh Chu MD [address] [place] [address] PCP - General Family Medicine 04/18/24 Markus Finley MD [address] [place] [address] Consulting Physician Medical Oncology 04/18/24 Zander Cha MD [address] [address] Consulting Physician Colon and Rectal Surgery 08/24/24 documented as of this encounter
--- OUTSIDE RECORDS SUMMARY | 2024-10-26 10:53 | XMS_ITS | Encounter Summary ---
Author Organization [facility] Care Team Providers Care Consumer Electronic Retail Specialist Name Role Phone Pritesh Chu MD Primary Care Provider [phone] Markus Finley MD Unavailable [phone] Zander Cha MD Unavailable Encounter Details Date [...] Recorded In the past 12 months has [employer], gas, oil, or water [employer] threatened to shut off services in your [...] week 09/25/2024 How often do you attend [facility] or roman catholic services? Never 09/25/2024 Do you belong to any clubs o r organizations such as mandaen groups, unions, fraternal or athletic groups, or [...] medical care, and heating? Somewhat hard 09/25/2024 [facility] of Occupat ional Health - Occupational Stress [...] in a nursing home (including now)? No 09/25/2024 Sexually Active [...] st Contact Info) Description 11/15/2024 1:00 PM FACILITIES PLANT ENGINEER Lab [facility] [address] [place] [address] Markus Finley MD [address] [place] [address] 11/15/2024 2:00 PM FACILITIES PLANT ENGINEER Appointment [facility] [address] [place] [address] Markus Finley MD [address] [place] [address] Discharge Disposition: Discharged to home or Selfcare documented as of this encounter Visit Diagnoses Not on filedocumented in this encounter Care Teams Consumer Electronic Retail Specialist Relationship Specialty Start Date End Date Pritesh Chu MD [address] [place], [place] [phone] PCP - General Family Medicine 04/18/24 Markus Finley MD [address] [place] [address] Consulting Physician Medical Oncology 04/18/24 Zander Cha MD [address] [place] [address] Consulting Physician Colon and Rectal Surgery 08/24/24 documented as of this encounter
--- OUTSIDE RECORDS SUMMARY | 2024-10-26 10:53 | XMS_ITS | Encounter Summary ---
Author Organization [facility] Address [address] [place] [address] Phone Care Team Providers Care Alumni Relations Officer Name Role Phone Pritesh Chu MD Primary Care Provider [phone] Markus Finley MD Unavailable [phone] Zander Cha MD Unavailable Encounter Details Date Type Department Care Team (Late st Contact Info) Description 08/29/2024 Telephone [facility] On[facility] Services [address] [place] [phone] Markus Finley MD [address] [place] [address] Social History Tobacco Use Types Packs/Day Years Used Date Smoking Tobacco: Former Cigarettes 0.5 5.6 S tarted: 04/18/2016 Smokeless Tobacco: Never Alcohol Use Standard Drinks/Week Comments Not Currently 0 (1 standard drink = 0.6 oz pur e alcohol) quit 2023 [facility] Utilities Answer Date Recorded In the past 12 months has [employer], gas, oil, or water company threatened to [...] How often do you attend muslim or restoration serv ices? Patient declined 08/01/2024 [...] [facility] of Occupat ional [facility] - Occupational Stress Questionnaire Answer Date Recorded [...] in the past 12 m [facility], were you homeless or living [...] stating too soon. This RN spoke with [facility] pharmacist and informed Dr. Finley had increased frequency earlier this month and that is reasoning why refill is needed sooner. Pharmacist stated she pushed override through and pt should be able to pick out hand rx tomorrow. Pt updated on the above and informed to call office if she has any issues. Pt verbalized understanding. documented in this encounter Plan of Treatment Upcoming Encounters Date Type Department Care Team (Late st Contact Info) Description 11/15/2024 1:00 PM HOUSE DESIGNER Lab [facility] Laboratory Services [address] [place] [address] Markus Finley MD [address] [place] [address] 11/15/2024 2:00 PM HOUSE DESIGNER Appointment [facility] MRI [address] [place] [address] Markus Finley MD [address] [place] [address] Discharge Disposition: Discharged to home or Selfcare documented as of this encounter Visit Diagnoses Not on filedocumented in this encounter Care Teams Alumni Relations Officer Relationship Specialty Start Date End Date Pritesh Chu MD [address] [address] PCP - General Family Medicine 04/18/24 Markus Finley MD [address] [place] [address] Consulting Physician Medical Oncology 04/18/24 Zander Cha MD [address] [address] Consulting Physician Colon and Rectal Surgery 08/24/24 documented as of this encounter
--- OUTSIDE RECORDS SUMMARY | 2024-10-26 10:53 | XMS_ITS | Encounter Summary ---
Author Organization [facility] Address [address] [facility] [place] [address] Phone Care Team Providers Care Professor Of Music Name Role Phone Pritesh Chu MD Primary Care Provider [phone] Markus Finley MD Unavailable [phone] Zander Cha MD Unavailable Encounter Details Date Type Department Care Team (Late st Contact Info) Description 10/05/2024 Transcribe Orders [facility] [address] [place], [place] [id number] Markus Finley MD [address] [place] [address] Metastatic melanoma (HCC) (Primary Dx) Social History Tobacco Use Types Packs/Day Years Used Date Smoking Tobacco: Former Cigarettes 0.5 5.6 S tarted: 04/18/2016 Smokeless Tobacco: Never Alcohol Use Standard Drinks/Week Comments Not Currently 0 (1 standard drink = 0.6 oz pur e alcohol) quit 2023 [facility] Utilities Answer Date Recorded In the past 12 months has [email or web address], gas, oil, or water [employer] threatened to shut off services in your [...] often do you attend chur ch or zoroastrian services? Never 09/25/2024 Do you belong to [...] medical care, and heating? Somewhat hard 09/25/2024 [facility] ional Health - Occupational [...] time in the past [address] [facility], were you homeless or living in [...] st Contact Info) Description 11/15/2024 1:00 PM ADULT EDUCATION INSTRUCTOR [facility] [address] [place] [address] Markus Finley MD [address] [place] [address] 11/15/2024 2:00 PM ADULT EDUCATION INSTRUCTOR [facility]ment [facility] [address] [facility] [place] [address] Markus Finley MD [address] [place] [address] Discharge Disposition: Discharged to home or Selfcare Scheduled Orders Name Type Priority Associated Diagnoses Orde r Schedule UR TEST QUAL Lab Routine Metastatic melanoma (HCC) Expected: 10/05/2024, Expires: 10/05/2025 documented as of this encounter Visit Diagnoses Diagnosis Metastatic melanoma (HCC)- Primary Melanoma of skin, site unspecified documented in this encounter Care Teams Professor Of Music Relationship Specialty Start Date End Date Pritesh Chu MD [address] [address] PCP - General Family Medicine 04/18/24 Markus Finley MD [address] [place] [address] Consulting Physician Medical Oncology 04/18/24 Zander Cha MD [address] [address] Consulting Physician Colon and Rectal Surgery 08/24/24 documented as of this encounter
--- OUTSIDE RECORDS SUMMARY | 2024-10-26 10:53 | XMS_ITS | Encounter Summary ---
Author Organization [employer] Care Team Providers Care Sealer Dry Cell Name Role Phone Pritesh Chu MD Primary Care Provider [phone] Markus Finley MD Unavailable [phone] Zander Cha MD Unavailable Encounter Details Date Type Department Care Team (Latest Contact Info) Description 09/11/2024 Travel Social History Tobacco Use Types Packs/Day Years Used Date Smoking Tobacco: Former Cigarettes 0.5 5.6 S tarted: 04/18/2016 Smokeless Tobacco: Never Alcohol Use Standard Drinks/Week Comments Not Currently 0 (1 standard drink = 0.6 oz pur e alcohol) quit 2023 [facility] Utilities Answer Date Recorded In the past 12 months has [employer], gas, oil, or water [employer] threatened to shut off services in your home? Patient declined 08/01/2024 Social Connection and Isolation Panel [NHANES] A nswer Date Recorded In a typical week, how many times do you talk on the phone with family, friends, or neighbors? Patient declined 08/01/2024 How often do you get togethe r with friends or relatives? Patient declined 08/01/2024 How often do you attend amish or mormon serv ices? Patient declined 08/01/2024 Do you belong to any clubs o r organizations such as amish groups, unions, fraternal or athletic groups, or [...] medical care, and heating? Patient declined 08/01/2024 [facility] - Occupational Stress Questionnaire Answer Date [...] st Contact Info) Description 11/15/2024 1:00 PM COMPUTER NUMERIC CONTROL SETTER [facility] [address] [place] [address] Markus Finley MD [address] [place] [address] 11/15/2024 2:00 PM COMPUTER NUMERIC CONTROL SETTER [facility]ment [facility] [address] [place] [address] Markus Finley MD [address] [place] [address] Discharge Disposition: Discharged to home or Selfcare documented as of this encounter Visit Diagnoses Not on filedocumented in this encounter Care Teams Sealer Dry Cell Relationship Specialty Start Date End Date Pritesh Chu MD [address] [place], [place] [phone] PCP - General Family Medicine 04/18/24 Markus Finley MD [address] [place] [address] Consulting Physician Medical Oncology 04/18/24 Zander Cha MD [address] [place] [address] Consulting Physician Colon and Rectal Surgery 08/24/24 documented as of this encounter
--- OUTSIDE RECORDS SUMMARY | 2024-10-26 10:53 | XMS_ITS | Encounter Summary ---
Author Organization [employer] Care Team Providers Care Leather Belt Loop Cutter Name Role Phone Pritesh Chu MD Primary Care Provider [phone] Markus Finley MD Unavailable [phone] Zander Cha MD Unavailable Encounter Details Date Type Department Care Team (Latest Contact Info) Description 10/02/2024 Travel Social History Tobacco Use Types Packs/Day Years Used Date Smoking Tobacco: Former Cigarettes 0.5 5.6 S tarted: 04/18/2016 Smokeless Tobacco: Never Alcohol Use Standard Drinks/Week Comments Not Currently 0 (1 standard drink = 0.6 oz pur e alcohol) quit 2023 [facility] Utilities Answer Date Recorded In the past 12 months has [employer], gas, oil, or water [employer] threatened to shut off services in your [...] week 09/25/2024 How often do you attend [facility] or caodaism services? Never 09/25/2024 Do you belong to any clubs o r organizations such as hinduism groups, unions, fraternal or athletic groups, or [...] medical care, and heating? Somewhat hard 09/25/2024 [facility] of Occupat ional Health - [...] or living in a correction (including now)? No 09/25/2024 Sexually Active Control [...] st Contact Info) Description 11/15/2024 1:00 PM ASBESTOS CEMENT SHEET SUPERVISOR [facility] [address] [place] [address] Markus Finley MD [address] [place] [address] 11/15/2024 2:00 PM ASBESTOS CEMENT SHEET SUPERVISOR [facility] [address] [place] [address] Markus Finley MD [address] [place] [address] Discharge Disposition: Discharged to home or Selfcare documented as of this encounter Visit Diagnoses Not on filedocumented in this encounter Care Teams Leather Belt Loop Cutter Relationship Specialty Start Date End Date Pritesh Chu MD [address] [place], [place] [phone] PCP - General Family Medicine 04/18/24 Markus Finley MD [address] [place] [address] Consulting Physician Medical Oncology 04/18/24 Zander Cha MD [address] [place] [address] Consulting Physician Colon and Rectal Surgery 08/24/24 documented as of this encounter
--- OUTSIDE RECORDS SUMMARY | 2024-10-26 10:53 | XMS_ITS | Encounter Summary ---
Author Organization [facility] Address [address] [place] [address] Phone Care Team Providers Care Tax Staff Accountant Name Role Phone Pritesh Chu MD Primary Care Provider [phone] Markus Finley MD Unavailable Zander Cha MD Unavailable Reason for Referral * Consult, Test & Initiate Treatment (Routine) - Closed Specialty Diagnoses / Procedures Referred By Contross t Referred To Contact Diagnoses Nasal discomfort Markus Finley MD [address] [place] [address] Phone: tel: fax: [facility] ENT [address] [address] [address] Phone: tel: fax: Referral ID Status Reason Start Date Expiration Date Visits Re quested Visits Authorized [id number] Closed 09/25/2024 1 1 Scheduling Instructions Dayanara [...] gap Subcutaneous nodule of left lower extremity RAW STOCK BLOWER FEEDER Reason for Visit * Episode Based Medications (Routine) - Closed Specialty Diagnoses / Procedures Referred By Contac t Referred To Contact Diagnoses Metastatic melanoma (HCC) Markus Finley MD [address] [place] [address] Phone: tel: fax: [facility] Oncology Services [address] [place] [address] Phone: tel: fax: Referral ID Status Reason Start Date Expiration Date Visits Re quested Visits Authorized [id number] Closed 04/19/2024 1 30 Encounter Details Date Type Department Care Team (Late st Contact Info) Description 09/25/2024 1:30 PM DYED RAW STOCK BLOWER FEEDER Clinical Support [facility] Oncology Services [address] [place] [address] Markus Finley MD [address] [place] [address] Dehydration (Primary Dx); Metastatic melanoma (HCC); Nasal discomfort Discharge Disposition: Discharged to home or Selfcare Social History Tobacco Use Types Packs/Day Years Used Date Smoking Tobacco: Former Cigarettes 0.5 5.6 S tarted: 04/18/2016 Smokeless Tobacco: Never Alcohol Use Standard Drinks/Week Comments Not Currently 0 (1 standard drink = 0.6 oz pur e alcohol) quit 2023 [facility] Utilities Answer Date Recorded In the past 12 months has [employer], gas, oil, or water [employer] threatened to shut off services in your [...] often do you attend chur ch or jew services? Never 09/25/2024 Do you belong to [...] medical care, and heating? Somewhat hard 09/25/2024 [facility] of Occupat ional Health - Occupational Stress [...] time in the past 12 m [facility], were you homeless or living in a [...] Comments Blood Pressure 127/87 09/25/2024 2:15 PM DYED RAW STOCK BLOWER FEEDER Pulse 78 09/25/2024 2:15 PM DYED RAW STOCK BLOWER FEEDER Temperature 36.4 ??C (97.5 ??F) 09/25/2024 2:15 PM CS T Respiratory Rate 16 09/25/2024 2:15 PM DYED RAW STOCK BLOWER FEEDER Oxygen Saturation 98% 09/25/2024 2:15 PM DYED RAW STOCK BLOWER FEEDER Inhaled Oxygen Concentration - - Weight - [...] 1 or 2 09/25/2024 11:46 AM Hayde Rosetnhal Q3: How often do you have si x or more drinks on one occasion? Never 09/25/2024 11:46 AM aHyde Rosenthal documented as of this encounter Miscellaneous Notes * Interdisciplinary - Milana, Sister Mary Almaguer RN - 09/25/2024 1:30 PM DYED RAW STOCK BLOWER FEEDER Patient arrived port accessed per protocol x1 [...] Patient left treatment area in stable condition. RAW STOCK BLOWER FEEDER * Addendum Note - Sister Mary Cortés RN - 09/25/2024 1:30 PM CSTAddended by: SISTER Mary CORTÉS on: 09/25/2024 04:14 PM Modules accepted: Orders RAW STOCK BLOWER FEEDER documented in this encounter Plan of Treatment Upcoming Encounters Date Type Department Care Team (Late st Contact Info) Description 11/15/2024 1:00 PM DYED RAW STOCK BLOWER FEEDER [facility] [address] [place] [address] Markus Finley MD [address] [place] [address] 11/15/2024 2:00 PM DYED RAW STOCK BLOWER FEEDER [facility] [address] [place] [address] Markus Finley MD [address] [place] [address] Discharge Disposition: Discharged to home or Selfcare Scheduled Referrals Name Type Priority Associated Diagnoses Orde r Schedule EXTERNAL ENT REFERRAL Outpatient Referral Routine Nasal discomfort Expected: 09/25/2024, Expires: 09/25/2025 documented as of this encounter Procedures Procedure Name Priority Date/Time Associated Diagnosis Comments CBC WITH AUTO DIFFERENTIAL STAT 09/25/2024 2:03 PM DYED RAW STOCK BLOWER FEEDER Metastatic melanoma (HCC) THYROID STIMULATING HORMONE (TSH) STAT 09/25/2024 2:03 PM DYED RAW STOCK BLOWER FEEDER Metastatic melanoma (HCC) CMP (COMPREHENSIVE METABOLIC PANEL) STAT 09/25/2024 2:03 PM DYED RAW STOCK BLOWER FEEDER Metastatic melanoma (HCC) COMPLETE BLOOD COUNT (CBC) WITH DIFF STAT 09/25/2024 2:03 PM DYED RAW STOCK BLOWER FEEDER Metastatic melanoma (HCC) documented in this encounter Results * (ABNORMAL) CBC WITH AUTO DIFFERENTIAL (09/25/2024 2:03 PM DYED RAW STOCK BLOWER FEEDER) WBC 8.23 4.00 - 12.00 10(3)/mcL 09/25/2024 2:12 PM DYED RAW STOCK BLOWER FEEDER [facility] RBC 3.98 3.80 - 5.30 10(6)/mcL 09/25/2024 2:12 PM DYED RAW STOCK BLOWER FEEDER [facility] HEMOGLOBIN (HGB) 12.8 12.0 - 15.8 g/dL 09/25/2024 2:12 PM DYED RAW STOCK BLOWER FEEDER [facility] HEMATOCRIT (HCT) 38.6 36.0 - 47.0 % 09/25/2024 2:12 PM DYED RAW STOCK BLOWER FEEDER [facility] MCV 97.0(H) 82.0 - 96.0 fL 09/25/2024 2:12 PM DYED RAW STOCK BLOWER FEEDER [facility] MCH 32.2 26.0 - 34.0 pg 09/25/2024 2:12 PM DYED RAW STOCK BLOWER FEEDER [facility] MCHC 33.2 31.0 - 36.0 g/dL 09/25/2024 2:12 PM DYED RAW STOCK BLOWER FEEDER [facility] PLATELET COUNT 183 140 - 440 10(3)/mcL 09/25/2024 2:12 PM DYED RAW STOCK BLOWER FEEDER [facility] RDW 14.8 11.8 - 15.5 % 09/25/2024 2:12 PM DYED RAW STOCK BLOWER FEEDER [facility] MPV 10.1 9.7 - 12.4 fL 09/25/2024 2:12 PM DYED RAW STOCK BLOWER FEEDER [facility] NEUTROPHILS 85.2(H) 47.0 - 73.0 % 09/25/2024 2:12 PM DYED RAW STOCK BLOWER FEEDER [facility] LYMPHOCYTES 6.8(L) 18.0 - 42.0 % 09/25/2024 2:12 PM DYED RAW STOCK BLOWER FEEDER [facility] MONOCYTES 7.8 4.0 - 12.0 % 09/25/2024 2:12 PM [facility] EOSINOPHILS 0.1 0.0 - 5.0 % 09/25/2024 2:12 PM [facility] BASOPHILS 0.1 0.0 - 1.0 % 09/25/2024 2:12 PM [facility] ABSOLUTE NEUTROPHILS 7.01 1.60 - 7.70 10(3)/[facility] 09/25/2024 2:12 PM [facility] ABSOLUTE LYMPHOCYTES 0.56(L) 1.30 - 3.20 10(3)/[facility] 09/25/2024 2:12 PM [facility] ABSOLUTE MONOCYTES 0.64 0.20 - 1.00 10(3)/[facility] 09/25/2024 2:12 PM [facility] ABSOLUTE EOSINOPHIL 0.01 0.00 - 0.40 10(3)/[facility] 09/25/2024 2:12 PM [facility] ABSOLUTE BASOPHILS 0.01 0.00 - 0.10 10(3)/[facility] 09/25/2024 2:12 PM [facility] NRBC PER 100 WBC 0 09/25/20 2:12 PM [facility] Blood Sub-Q Port Venou s Access Device (Medi-Port, Implanted Port) / Unknown 09/25/2024 2:03 PM DYED RAW STOCK BLOWER FEEDER 09/25/2024 2:03 PM DYED RAW STOCK BLOWER FEEDER Markus Finley MD HEMATOLOGY ORDERABLES Fi nal Result [facility] [address] [place] [address] * THYROID STIMULATING HORMONE (TSH) (09/25/2024 2:03 PM DYED RAW STOCK BLOWER FEEDER) TSH 2.382 0.300 - 5.000 mIU/L 09/25/2024 2:49 PM DYED RAW STOCK BLOWER FEEDER [facility] Blood Sub-Q Port Venou s Access Device (Medi-Port, Implanted Port) / Unknown 09/25/2024 2:03 PM DYED RAW STOCK BLOWER FEEDER 09/25/2024 2:03 PM DYED RAW STOCK BLOWER FEEDER Markus Finley MD CHEMISTRY ORDERABLES Fin al Result Performing Organization Address City/[facility]/ZIP Co de Phone Number [facility] [address] [place] [address] * (ABNORMAL) CMP (COMPREHENSIVE METABOLIC PANEL) (09/25/2024 2:03 PM DYED RAW STOCK BLOWER FEEDER) SODIUM 141 136 - 145 mmol/L 09/25/2024 2:32 PM DYED RAW STOCK BLOWER FEEDER [facility] POTASSIUM 4.2 3.5 - 5.1 mmol/L 09/25/2024 2:32 PM DYED RAW STOCK BLOWER FEEDER [facility] CHLORIDE 109(H) 98 - 107 mmol/L 09/25/2024 2:32 PM DYED RAW STOCK BLOWER FEEDER [facility] CO2, VENOUS 25 22 - 30 mmol/L 09/25/2024 2:32 PM DYED RAW STOCK BLOWER FEEDER [facility] ANION GAP 11.2 <18.0 mmol/L 09/25/2024 2:32 PM DYED RAW STOCK BLOWER FEEDER [facility] GLUCOSE 95 70 - 99 mg/dL 09/25/2024 2:32 PM DYED RAW STOCK BLOWER FEEDER [facility] BUN 22(H) 5 - 18 mg/dL 09/25/2024 2:32 PM DYED RAW STOCK BLOWER FEEDER [facility] CREATININE, BLOOD 0.86 0.60 - 1.00 mg/dL 09/25/2024 2:32 PM [facility] BUN/CREATININE RATIO 26(H) 12 - 20 ratio 09/25/2024 2:32 PM [facility] TOTAL PROTEIN 6.3 6.3 - 8.2 g/dL 09/25/2024 2:32 PM [facility] ALBUMIN 4.0 3.5 - 5.0 g/dL 09/25/2024 2:32 PM [facility] A/G RATIO 1.7 1.0 - 2.2 09/25/2024 2:32 PM [facility] CALCIUM 9.0 8.7 - 10.5 mg/dL 09/25/2024 2:32 PM [facility] T BILI 0.5 0.2 - 1.2 mg/dL 09/25/2024 2:32 PM [facility] SGOT (AST) 20 5 - 34 U/L 09/25/2024 2:32 PM [facility] SGPT (ALT) 45 0 - 55 U/L 09/25/2024 2:32 PM [facility] ALKALINE PHOSPHATASE 39(L) 40 - 150 U/L 09/25/2024 2:32 PM [facility] IS THE PATIENT REQUIRED TO BE FASTING? No 09/25/2024 2:32 PM [facility] GFR, ESTIMATED >60 >=60 09/25/2024 2:32 PM [facility] Comment: Creatinine Clearance is the preferred criteria for selecting drug dose adjustments in renally impaired patients. ??The GFR is provided as additional pertinent clinical information. GFR is reported in mL/min/1.73 sq m. Calculation based on the Chronic Kidney Disease Epidemiology Collaboration (CKD- EPI) equation refit without adjustment for race. GFR, EST. >60 >=60 024 2:32 PM [facility] GFR, EST. NONAFRICAN >60 >=60 09/25/2024 2:32 PM [facility] Blood Sub-Q Port Venou s Access Device (Medi-Port, Implanted Port) / Unknown 09/25/2024 2:03 PM DYED RAW STOCK BLOWER FEEDER 09/25/2024 2:03 PM DYED RAW STOCK BLOWER FEEDER Markus Finley MD CHEMISTRY ORDERABLES Fin al Result [facility] [address] [place] [address] documented in this encounter Visit Diagnoses Diagnosis [...] at 1330Indications:Dehydration New Bag 09/25/2024 1:50 PM DYED RAW STOCK BLOWER FEEDER 1,000 mL 999 mL/hr Heparin Na (Pork) Lock Flsh PF SOLN 50 Units 50 Units, Intravenous, PRN, Starting on Tue09/25/24 at 1447, Until Tue09/25/24 at 1723, Line CareIndications:Dehydration Given 09/25/2024 3:09 PM DYED RAW STOCK BLOWER FEEDER 50 Units documented in this encounter Care Teams Tax Staff Accountant Relationship Specialty Start Date End Date Pritesh Chu MD [address] [address] PCP - General Family Medicine 04/18/24 Markus Finley MD [address] [place] [address] Consulting Physician Medical Oncology 04/18/24 Zander Cha MD [address] [address] Consulting Physician Colon and Rectal Surgery 08/24/24 documented as of this encounter
--- OUTSIDE RECORDS SUMMARY | 2024-10-26 10:53 | XMS_ITS | Encounter Summary ---
Author Organization [facility] Address [address] [facility], [place] [address] Phone Care Team Providers Care Motorcycle Repairer Name Role Phone Pritesh Chu MD Primary Care Provider [phone] Markus Finley MD Unavailable [phone] Zander Cha MD Unavailable Reason for Visit * Episode Based Medications (Routine) - Closed Specialty Diagnoses / Procedures Referred By Contross t Referred To Contact Diagnoses Metastatic melanoma (HCC) Markus Finley MD [address] [place] [address] Phone: tel: fax: [facility] Oncology Services [address] [place] [address] Phone: tel: fax: Referral ID Status Reason Start Date Expiration Date Visits Re quested Visits Authorized [id number] Closed 04/19/2024 1 30 Encounter Details Date Type Department Care Team (Late st Contact Info) Description 09/07/2024 11:30 AM CDT Clinical Support [facility] Oncology Services [address] [place] [phone] Markus Finley MD [address] [place] [address] Metastatic melanoma (HCC) (Primary Dx) Discharge Disposition: Discharged to home or Selfcare Social History Tobacco Use Types Packs/Day Years Used Date Smoking Tobacco: Former Cigarettes 0.5 5.6 S tarted: 04/18/2016 Smokeless Tobacco: Never Alcohol Use Standard Drinks/Week Comments Not Currently 0 (1 standard drink = 0.6 oz pur e alcohol) quit 2023 [facility] Utilities Answer [...] declined 08/01/2024 How often do you attend restorationism or taoism serv ices? Patient declined 08/01/2024 Do you belong to any clubs o r organizations such as restorationism groups, unions, fraternal or athletic groups, or [...] medical care, and heating? Patient declined 08/01/2024 [employer] [place] [facility] Occupat ional Health - Occupational Stress [...] in the past 12 m [facility], were you homeless or living in [...] st Contact Info) Description 11/15/2024 1:00 PM CLINICAL VETERINARIAN Lab [facility] Laboratory Services [address] [place] [address] Markus Finley MD [address] [place] [address] 11/15/2024 2:00 PM CLINICAL VETERINARIAN Appointment [facility] MRI 1 [facility] [place] [address] Markus Finley MD [address] [place] [address] Discharge Disposition: Discharged to home or Selfcare [...] 12.00 10(3)/mcL 09/07/2024 12:23 PM CDT [facility] RBC 4.18 3.80 - 5.30 10(6)/mcL 09/07/2024 12:23 PM CDT [facility] HEMOGLOBIN (HGB) 12.7 12.0 - 15.8 g/dL 09/07/2024 12:23 PM CDT [facility] HEMATOCRIT (HCT) 39.1 36.0 - 47.0 % 09/07/2024 12:23 PM CDT [facility] MCV 93.5 82.0 - 96.0 fL 09/07/2024 12:23 PM CDT [facility] MCH 30.4 26.0 - 34.0 pg 09/07/2024 12:23 PM CDT [facility] MCHC 32.5 31.0 - 36.0 g/dL 09/07/2024 12:23 PM CDT [facility] PLATELET COUNT 178 140 - 440 10(3)/[facility] 09/07/2024 12:23 PM CDT [facility] RDW 14.8 11.8 - 15.5 % 09/07/2024 12:23 PM CDT [facility] MPV 9.8 9.7 - 12.4 fL 09/07/2024 12:23 PM CDT [facility] NEUTROPHILS 90.3(H) 47.0 - 73.0 % 09/07/2024 12:23 PM CDT [facility] LYMPHOCYTES 4.7(L) 18.0 - 42.0 % 09/07/2024 12:23 PM CDT [facility] MONOCYTES 4.8 4.0 - 12.0 % 09/07/2024 12:23 PM CDT [facility] EOSINOPHILS 0.1 0.0 - 5.0 % 09/07/2024 12:23 PM CDT [facility] BASOPHILS 0.1 0.0 - 1.0 % 09/07/2024 12:23 PM CDT [facility] ABSOLUTE NEUTROPHILS 8.08(H) 1.60 - 7.70 10(3)/[facility] 09/07/2024 12:23 PM CDT [facility] ABSOLUTE LYMPHOCYTES 0.42(L) 1.30 - 3.20 10(3)/[facility] 09/07/2024 12:23 PM CDT [facility] ABSOLUTE MONOCYTES 0.43 0.20 - 1.00 10(3)/[facility] 09/07/2024 12:23 PM CDT [facility] ABSOLUTE EOSINOPHIL 0.01 0.00 - 0.40 10(3)/[facility] 09/07/2024 12:23 PM CDT [facility] ABSOLUTE BASOPHILS 0.01 0.00 - 0.10 10(3)/[facility] 09/07/2024 12:23 PM CDT [facility] NRBC PER 100 WBC 0 09/07/20 12:23 PM CDT [facility] RESULTS ARE CONSISTENT WITH PERIPHERAL SMEAR REVIEW Yes 09/07/2024 12:23 PM CDT [facility] RBC MORPHOLOGY CONSISTENT WITH INDICES Yes 09/07/2024 12:23 PM CDT [facility] Blood Sub-Q Port Venou s Access Device (Medi-Port, Implanted Port) / Unknown 09/07/2024 11:55 AM CDT 09/07/2024 11:55 AM CDT Markus Finley MD HEMATOLOGY ORDERABLES Fi nal Result Performing Organization Address City/[facility]/ZIP Co de Phone Number [facility] [address] [place] [address] * THYROID STIMULATING HORMONE (TSH) (09/07/2024 11:55 AM CDT) TSH 1.777 0.300 - 5.000 mIU/L 09/07/2024 12:42 PM CDT [facility] Blood Sub-Q Port Venou s Access Device (Medi-Port, Implanted Port) / Unknown 09/07/2024 11:55 AM CDT 09/07/2024 11:55 AM CDT Markus Finley MD CHEMISTRY ORDERABLES Fin al Result Performing Organization Address City/[facility]/ZIP Co de Phone Number [facility] [address] [place] [address] * (ABNORMAL) CMP (COMPREHENSIVE METABOLIC PANEL) (09/07/2024 11:55 AM CDT) SODIUM 139 136 - 145 mmol/L 09/07/2024 12:24 PM CDT [facility] POTASSIUM 4.7 3.5 - 5.1 mmol/L 09/07/2024 12:24 PM CDT [facility] CHLORIDE 105 98 - 107 mmol/L 09/07/2024 12:24 PM CDT [facility] CO2, VENOUS 26 22 - 30 mmol/L 09/07/2024 12:24 PM CDT [facility] ANION GAP 12.7 <18.0 mmol/L 09/07/2024 12:24 PM CDT [facility] GLUCOSE 102(H) 70 - 99 mg/dL 09/07/2024 12:24 PM CDT [facility] BUN 20(H) 5 - 18 mg/dL 09/07/2024 12:24 PM CDT [facility] CREATININE, BLOOD 0.82 0.60 - 1.00 mg/dL 09/07/2024 12:24 PM CDT [facility] BUN/CREATININE RATIO 24(H) 12 - 20 ratio 09/07/2024 12:24 PM CDT [facility] TOTAL PROTEIN 6.1(L) 6.3 - 8.2 g/dL 09/07/2024 12:24 PM CDT [facility] ALBUMIN 3.9 3.5 - 5.0 g/dL 09/07/2024 12:24 PM CDT [facility] A/G RATIO 1.8 1.0 - 2.2 09/07/2024 12:24 PM CDT [facility] CALCIUM 9.2 8.7 - 10.5 mg/dL 09/07/2024 12:24 PM CDT [facility] T BILI 0.6 0.2 - 1.2 mg/dL 09/07/2024 12:24 PM CDT [facility] SGOT (AST) 12 5 - 34 U/L 09/07/2024 12:24 PM CDT [facility] SGPT (ALT) 53 0 - 55 U/L 09/07/2024 12:24 PM CDT [facility] ALKALINE PHOSPHATASE 52 40 - 150 U/L 09/07/2024 12:24 PM CDT [facility] IS THE PATIENT REQUIRED TO BE FASTING? No 09/07/2024 12:24 PM CDT [facility] GFR, ESTIMATED >60 >=60 09/07/2024 12:24 PM CDT [facility] Comment: Creatinine Clearance is the preferred criteria for selecting drug dose adjustments in renally impaired patients. ??The GFR is provided as additional pertinent clinical information. GFR is reported in mL/min/1.73 sq m. Calculation based on the Chronic Kidney Disease Epidemiology Collaboration (CKD- EPI) equation refit without adjustment for race. GFR, EST. >60 >=60 024 12:24 PM CDT [facility] GFR, EST. NONAFRICAN >60 >=60 09/07/2024 12:24 PM CDT [facility] Blood Sub-Q Port Venou s Access Device (Medi-Port, Implanted Port) / Unknown 09/07/2024 11:55 AM CDT 09/07/2024 11:55 AM CDT Markus Finley MD CHEMISTRY ORDERABLES Fin al Result [facility] [address] [place] [address] documented in this encounter Visit Diagnoses Diagnosis [...] Units documented in this encounter Care Teams Motorcycle Repairer Relationship Specialty Start Date End Date Pritesh Chu MD [address] [place] [address] PCP - General Family Medicine 04/18/24 Markus Finley MD [address] [place] [address] Consulting Physician Medical Oncology 04/18/24 Zander Cha MD [address] [address] Consulting Physician Colon and Rectal Surgery 08/24/24 documented as of this encounter
--- OUTSIDE RECORDS SUMMARY | 2024-10-26 10:53 | XMS_ITS ---
Author Organization [facility] Address [address] [place] [address] Phone Care Team Providers Care Security Systems Sales Representative Name Role Phone Pritesh Chu MD Primary Care Provider [phone] Markus Finley MD Unavailable [phone] Zander Cha MD Unavailable Active Problems Problem [...]
--- OUTSIDE RECORDS SUMMARY | 2024-10-26 10:53 | XMS_ITS | Encounter Summary ---
Author Organization [employer] Care Team Providers Care Basic Sciences Professor Name Role Phone Pritesh Chu MD Primary Care Provider [phone] Markus Finley MD Unavailable [phone] Zander Cha MD Unavailable Encounter Details Date Type Department Care Team (Latest Contact Info) Description 09/04/2024 Travel Social History Tobacco Use Types Packs/Day Years Used Date Smoking Tobacco: Former Cigarettes 0.5 5.6 S tarted: 04/18/2016 Smokeless Tobacco: Never Alcohol Use Standard Drinks/Week Comments Not Currently 0 (1 standard drink = 0.6 oz pur e alcohol) quit 2023 [facility] Utilities Answer Date Recorded In the past 12 months has [employer], gas, oil, or water [email or web address] threatened to shut off services in your home? Patient declined 08/01/2024 Social Connection and Isolation Panel [NHANES] A nswer Date Recorded In a typical week, how many times do you talk on the phone with family, friends, or neighbors? Patient declined 08/01/2024 How often do you get togethe r with friends or relatives? Patient declined 08/01/2024 How often do you attend baptist or sikhism serv ices? Patient declined 08/01/2024 Do you [...] care, and heating? Patient declined 08/01/2024 [facility] - Occupational Stress Questionnaire Answer Date Recorded [...] in the past 12 m [facility], were you homeless or living in [...] st Contact Info) Description 11/15/2024 1:00 PM EXPERIMENTAL ROCKETSLED MECHANIC Lab [facility] [address] [place] [address] Markus Finley MD [address] [place] [address] 11/15/2024 2:00 PM EXPERIMENTAL ROCKETSLED MECHANIC [facility]ment [facility] [address] [place] [address] Markus Finley MD [address] [place] [address] Discharge Disposition: Discharged to home or Selfcare documented as of this encounter Visit Diagnoses Not on filedocumented in this encounter Care Teams Basic Sciences Professor Relationship Specialty Start Date End Date Pritesh Chu MD [address] [place], [place] [id number] PCP - General Family Medicine 04/18/24 Markus Finley MD [address] [place] [address] Consulting Physician Medical Oncology 04/18/24 Zander Cha MD [address] [place] [address] Consulting Physician Colon and Rectal Surgery 08/24/24 documented as of this encounter
--- OUTSIDE RECORDS SUMMARY | 2024-10-26 10:53 | XMS_ITS | Encounter Summary ---
Author Organization [facility] Address [address] [facility] [place] [address] Phone Care Team Providers Care Bods Developer Name Role Phone Pritesh Chu MD Primary Care Provider [phone] Maruks Finley MD Unavailable Zander Cha MD Unavailable Reason for Referral * Radiology Services (STAT with Interpretation) - Pending Review Specialty Diagnoses / Procedures Referred By Contross t Referred To Contact Radiology Diagnoses Metastatic melanoma (HCC) New daily persistent headache Procedures MRI BRAIN W/WO CONTRAST Markus Finley MD [address] [place] [address] Phone: tel: fax: Referral ID Status Reason Start Date Expiration Date V isits Requested Visits Authorized [id number] Pending Review 10/02/2024 1 1 ACTORY PRODUCTS SUPERVISOR Encounter Details Date Type Department Care Team (Late st Contact Info) Description 10/02/2024 3:20 PM REFRACTORY PRODUCTS SUPERVISOR [facility] [address] [place] [address] Markus Finley MD [address] [place] [address] Metastatic melanoma (HCC) (Primary Dx); New daily persistent headache Discharge Disposition: Discharged to home or Selfcare Social History Tobacco Use Types Packs/Day Years Used Date Smoking Tobacco: Former Cigarettes 0.5 5.6 S tarted: 04/18/2016 Smokeless Tobacco: Never Tobacco Cessation:Counseling Given: Not Answered Alcohol Use Standard Drinks/Week Comments Not Currently 0 (1 standard drink = 0.6 oz pur e alcohol) quit 2023 [facility] [email or web address] Answer Date Recorded In the past 12 [...] medical care, and heating? Somewhat hard 09/25/2024 [place] of Occupat ional Health - Occupational Stress [...] any time in the past 12 m [facility], were you homeless or living in a detention (including now)? No 09/25/2024 Sexually Active Control [...] Comments Blood Pressure 137/91 10/02/2024 2:56 PM REFRACTORY PRODUCTS SUPERVISOR Pulse 76 10/02/2024 2:56 PM REFRACTORY PRODUCTS SUPERVISOR Temperature 36.6 ??C (97.8 ??F) 10/02/2024 2:56 PM CS T Respiratory Rate 16 10/02/2024 2:56 PM REFRACTORY PRODUCTS SUPERVISOR Oxygen Saturation 98% 10/02/2024 2:56 PM REFRACTORY PRODUCTS SUPERVISOR Inhaled Oxygen Concentration - - Weight 119.7 kg (263 lb 12.8 oz) 10/02/2024 2:56 PM REFRACTORY PRODUCTS SUPERVISOR Height 167.6 cm (5' 6 ) 10/02/2024 2:56 PM REFRACTORY PRODUCTS SUPERVISOR Body Mass Index 42.58 10/02/2024 2:56 PM REFRACTORY PRODUCTS SUPERVISOR documented in this encounter Progress Notes * [...] received on 07/17/24. Patient was admitted to [facility] from 07/25/24through 07/30/24 and 08/02/24 through [...] on 08/10/24. 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 --[id number] BLOOD: positive for BRAF V600E and TSC2 [...] 4.[address] abdomen pelvis done at [facility] on 06/27/2024 No evidence of appendicitis. [...] send her to the ENT group at [facility]. Follow up in 3 weeks with MRI [...] for Markus Finley MD. 10/02/2024, 3:31 PM REFRACTORY PRODUCTS SUPERVISOR ACTORY PRODUCTS SUPERVISOR documented in this encounter Plan of Treatment Upcoming Encounters Date Type Department Care Team (Late st Contact Info) Description 11/15/2024 1:00 PM REFRACTORY PRODUCTS SUPERVISOR Lab [facility] [address] [place] [address] Markus Finley MD [address] [place] [address] 11/15/2024 2:00 PM REFRACTORY PRODUCTS SUPERVISOR Appointment [facility] [address] [place] [address] Markus Finley MD [address] [place], [place] [address] Discharge Disposition: Discharged to home or Selfcare Scheduled Orders Name Type Priority Associated Diagnoses Order Schedule MRI BRAIN W/WO CONTRAST Imaging Stat with Interpretation Metastatic melanoma (HCC) New daily persistent headache Expected: 10/02/2024, Expires: 04/01/2026 documented as of this encounter Visit Diagnoses Diagnosis Metastatic melanoma (HCC)- Primary Melanoma of skin, site unspecified New daily persistent headache documented in this encounter Care Teams Bods Developer Relationship Specialty Start Date End Date Pritesh Chu MD [address] [place] [address] PCP - General Family Medicine 04/18/24 Markus Finley MD [address] [place] [address] Consulting Physician Medical Oncology 04/18/24 Zander Cha MD [address] [address] Consulting Physician Colon and Rectal Surgery 08/24/24 documented as of this encounter
--- OUTSIDE RECORDS SUMMARY | 2024-10-26 10:53 | XMS_ITS | Encounter Summary ---
Author Organization [facility] Address [address] [facility] [place] [address] Phone Care Team Providers Care Heel Scourer Name Role Phone Pritesh Chu MD Primary Care Provider [phone] Markus Finley MD Unavailable [phone] Zander Cha MD Unavailable Reason for Visit * Reason Onset Date Comments Medication Refill 09/20/2024 Encounter Details Date Type Department Care Team (Late st Contact Info) Description 09/20/2024 Refill [facility] Oncology Services [address] [place] [phone] Markus Finley MD [address] [place] [address] Medication Refill Social History Tobacco Use Types Packs/Day Years Used Date Smoking Tobacco: Former Cigarettes 0.5 5.6 S tarted: 04/18/2016 Smokeless Tobacco: Never Alcohol Use Standard Drinks/Week Comments Not Currently 0 (1 standard drink = 0.6 oz pur e alcohol) quit 2023 [facility] Utilities Answer Date Recorded In the past 12 months has th e electric, gas, oil, or water [employer] threatened to shut off services in your home? Patient declined 08/01/2024 Social Connection and Isolation Panel [NHANES] A nswer Date Recorded In a typical week, how many times do you talk on the phone with family, friends, or neighbors? Patient declined 08/01/2024 How often do you get togethe r with friends or relatives? Patient declined 08/01/2024 How often do you attend mormonism or advent serv ices? Patient declined 08/01/2024 [...] medical care, and heating? Patient declined 08/01/2024 [facility] - Occupational Stress Questionnaire Answer Date [...] st Contact Info) Description 11/15/2024 1:00 PM BALANCE CLERK Lab [facility] Laboratory Services [address] [facility] [place] [address] Markus Finley MD [address] [place] [address] 11/15/2024 2:00 PM BALANCE CLERK [facility] 1 [facility] [place] [address] Markus Finley MD [address] [place] [address] Discharge Disposition: Discharged to home or Selfcare documented as of this encounter Visit Diagnoses Not on filedocumented in this encounter Care Teams Heel Scourer Relationship Specialty Start Date End Date Pritesh Chu MD [address] [address] PCP - General Family Medicine 04/18/24 Markus Finley MD [address] [place] [address] Consulting Physician Medical Oncology 04/18/24 Zander Cha MD [address] [address] Consulting Physician Colon and Rectal Surgery 08/24/24 documented as of this encounter
--- OUTSIDE RECORDS SUMMARY | 2024-10-26 10:53 | XMS_ITS | Encounter Summary ---
Author Organization [facility] Address [address] [place] [address] Phone Care Team Providers Care Fast Food Delivery Driver Name Role Phone Pritesh Chu MD Primary Care Provider [phone] Markus Finley MD Unavailable [phone] Zander Cha MD Unavailable Encounter Details Date Type Department Care Team (Late st Contact Info) Description 10/08/2024 Telephone [facility] Oncology Services [address] [place] [phone] Markus Finley MD [address] [place] [address] Social History Tobacco Use Types Packs/Day Years Used Date Smoking Tobacco: Former Cigarettes 0.5 5.6 S tarted: 04/18/2016 Smokeless Tobacco: Never Alcohol Use Standard Drinks/Week Comments Not Currently 0 (1 standard drink = 0.6 oz pur e alcohol) quit 2023 [facility] Utilities Answer Date Recorded In the past 12 months has [employer], gas, oil, or water company threatened to [...] any clubs o r organizations such as mandaeism groups, unions, fraternal or athletic groups, or [...] medical care, and heating? Somewhat hard 09/25/2024 [facility] of Occupat ional Health - Occupational [...] any time in the past 12 m [facility], were you homeless or living in a custodial (including now)? No 09/25/2024 Sexually Active Control [...] Cabrera RN - 10/11/2024 2:35 PM CST [facility] has her prescriptions ready; Chris needs to call and complete 2 new patient assessments in order to set up shipment. Called pt to make aware and pharmacy number provided. Pt knows to call with further issues. SBOW MAKER * Addendum Note - Carmina Porras RN - 10/10/2024 10:06 AM CSTAddended by: CARMINA PORRAS on: 10/10/2024 10:06 AM Modules accepted: Orders SBOW MAKER * Telephone Encounter - Carmina Porras RN - 10/10/2024 10:02 AM CROSSBOW MAKER Cover[employer]ymeds fax received. Spoke with Liliana Rodriguez RN who stated auth fax was received from [employer] yesterday. [facility] and [facility], to discuss. Per Mirian auth is approved for medication to be filled through [facility], . New auth would be needed for [facility] to refill. New rx routed to [facility]. SBOW MAKER * Addendum Note - Liliana Cabrera RN - 10/09/2024 5:00 PM CSTAddended by: LILIANA CABRERA on: 10/09/2024 05:00 PM Modules accepted: Orders SBOW MAKER * Telephone Encounter - Liliana Cabrera RN - 10/09/2024 4:54 PM CST Fax received for [facility] being OON for patient. Sending Braftovi/Mektovi to [facility] perfax recommendation from [facility]. RN will check status of these tomorrow, Tuesday. SBOW MAKER * Telephone Encounter - Liliana Cabrera RN - 10/08/2024 2:58 PM CST Okay for [employer] once daily per MD. SBOW MAKER * Telephone Encounter - Liliana Cabrera RN [...] heard from them for shipment. Pt agreeable. SBOW MAKER documented in this encounter Plan of Treatment Upcoming Encounters Date Type Department Care Team (Late st Contact Info) Description 11/15/2024 1:00 PM CROSSBOW MAKER Lab [facility] Laboratory Services 1 [facility] [place] [address] Markus Finley MD [address] [place] [address] 11/15/2024 2:00 PM CROSSBOW MAKER [facility] 1 [facility] [place] [address] Markus Finley MD [address] [place] [address] Discharge Disposition: Discharged to home or Selfcare documented as of this encounter Visit Diagnoses Diagnosis Metastatic melanoma (HCC)- Primary Melanoma of skin, site unspecified documented in this encounter Care Teams Fast Food Delivery Driver Relationship Specialty Start Date End Date Pritesh Chu MD [address] [place] [address] PCP - General Family Medicine 04/18/24 Markus Finley MD [address] [place] [address] Consulting Physician Medical Oncology 04/18/24 Zander Cha MD [address] [address] Consulting Physician Colon and Rectal Surgery 08/24/24 documented as of this encounter
--- OUTSIDE RECORDS SUMMARY | 2024-10-26 10:53 | XMS_ITS | Encounter Summary ---
Author Organization [employer] ([employer]) Care Team Providers Care Clinic Physician Name Role Phone Pritesh Chu MD Primary Care Provider [phone] Markus Finley MD Unavailable Zander Cha MD Unavailable Encounter Details Date Type Department Care Team (Latest Contact Info) Description 08/29/2024 Travel Social History Tobacco Use Types Packs/Day Years Used Date Smoking Tobacco: Former Cigarettes 0.5 5.6 S tarted: 04/18/2016 Smokeless Tobacco: Never Alcohol Use Standard Drinks/Week Comments Not Currently 0 (1 standard drink = 0.6 oz pur e alcohol) quit 2023 [facility] Utilities Answer Date Recorded In the past 12 months has [employer], gas, oil, or water [employer] threatened to shut off services in your home? Patient declined 08/01/2024 Social Connection and Isolation Panel [NHANES] A nswer Date Recorded In a typical week, how many times do you talk on the phone with family, friends, or neighbors? Patient declined 08/01/2024 How often do you get togethe r with friends or relatives? Patient declined 08/01/2024 How often do you attend voodoo or anabaptism serv ices? Patient declined 08/01/2024 Do you belong to any clubs o r organizations such as voodoo groups, unions, fraternal or athletic groups, or [...] heating? Patient declined 08/01/2024 [facility] - Occupational Stress Questionnaire Answer Date [...] or living in a half-way (including now)? Patient declined 08/01/2024 Sexually Active [...] st Contact Info) Description 11/15/2024 1:00 PM CHRONIC DISEASE EPIDEMIOLOGIST Lab [facility] [address] [place] [address] Markus Finley MD [address] [place] [address] 11/15/2024 2:00 PM CHRONIC DISEASE EPIDEMIOLOGIST [facility]ointment [facility] [address] [place] [address] Markus Finley MD [address] [place] [address] Discharge Disposition: Discharged to home or Selfcare documented as of this encounter Visit Diagnoses Not on filedocumented in this encounter Care Teams Clinic Physician Relationship Specialty Start Date End Date Pritesh Chu MD [address] [place], [place] [id number] PCP - General Family Medicine 04/18/24 Markus Finley MD [address] [place] [address] Consulting Physician Medical Oncology 04/18/24 Zander Cha MD [address] [place] [address] Consulting Physician Colon and Rectal Surgery 08/24/24 documented as of this encounter
--- OUTSIDE RECORDS SUMMARY | 2024-10-26 10:53 | XMS_ITS | Encounter Summary ---
Author Organization [facility] Address [address] [facility] [place] [address] Phone Care Team Providers Care Calendering Machine Operator Name Role Phone Pritesh Chu MD Primary Care Provider [phone] Markus Finley MD Unavailable [phone] Zander Cha MD Unavailable Reason for Visit * Episode Based Medications (Routine) - Closed Specialty Diagnoses / Procedures Referred By Contross t Referred To Contact Diagnoses Metastatic melanoma (HCC) Markus Finley MD [address] [place] [address] Phone: tel: fax: [facility] Oncology Services [address] [place] [address] Phone: tel: fax: Referral ID Status Reason Start Date Expiration Date Visits Re quested Visits Authorized [id number] Closed 04/19/2024 1 30 Encounter Details Date Type Department Care Team (Late st Contact Info) Description 10/02/2024 2:30 PM EGG FACTORY WORKER Clinical Support [facility] Oncology Services [address] [place] [address] Markus Finley MD [address] [place] [address] Metastatic melanoma (HCC) (Primary Dx) Discharge Disposition: Discharged to home or Selfcare Social History Tobacco Use Types Packs/Day Years Used Date Smoking Tobacco: Former Cigarettes 0.5 5.6 S tarted: 04/18/2016 Smokeless Tobacco: Never Alcohol Use Standard Drinks/Week Comments Not Currently 0 (1 standard drink = 0.6 oz pur e alcohol) quit 2023 [facility] Utilities Answer Date Recorded In the past 12 months has [employer], gas, oil, or water company threatened [...] often do you attend chur ch or yazdanism services? Never 09/25/2024 Do you belong to [...] medical care, and heating? Somewhat hard 09/25/2024 [facility] Questionnaire Answer Date [...] time in the past [address] [facility], were you homeless or living in a fdc (including now)? No 09/25/2024 Sexually Active Control [...] Comments Blood Pressure 137/91 10/02/2024 2:44 PM EGG FACTORY WORKER Pulse 76 10/02/2024 2:44 PM EGG FACTORY WORKER Temperature 36.6 ??C (97.8 ??F) 10/02/2024 2:44 PM CS T Respiratory Rate 16 10/02/2024 2:44 PM EGG FACTORY WORKER Oxygen Saturation 98% 10/02/2024 2:44 PM EGG FACTORY WORKER Inhaled Oxygen Concentration - - Weight 119.7 kg (263 lb 12.8 oz) 10/02/2024 2:44 PM EGG FACTORY WORKER Height - - Body Mass Index 42.58 09/11/2024 2:01 PM EGG FACTORY WORKER documented in this encounter Miscellaneous Notes * [...] with bandaid. Pt left in safe disposition. FACTORY WORKER documented in this encounter Plan of Treatment Upcoming Encounters Date Type Department Care Team (Late st Contact Info) Description 11/15/2024 1:00 PM EGG FACTORY WORKER Lab [facility] [address] [place] [address] Markus Finley MD [address] [place] [address] 11/15/2024 2:00 PM EGG FACTORY WORKER [facility] 1 [place] [address] Markus Finley MD [address] [place] [address] Discharge Disposition: Discharged to home or Selfcare documented as of this encounter Procedures Procedure Name Priority Date/Time Associated Diagnosis Comments CBC WITH AUTO DIFFERENTIAL STAT 10/02/2024 3:08 PM EGG FACTORY WORKER Metastatic melanoma (HCC) THYROID STIMULATING HORMONE (TSH) STAT 10/02/2024 3:08 PM EGG FACTORY WORKER Metastatic melanoma (HCC) CMP (COMPREHENSIVE METABOLIC PANEL) STAT 10/02/2024 3:08 PM EGG FACTORY WORKER Metastatic melanoma (HCC) COMPLETE BLOOD COUNT (CBC) WITH DIFF STAT 10/02/2024 3:08 PM EGG FACTORY WORKER Metastatic melanoma (HCC) documented in this encounter Results * (ABNORMAL) CBC WITH AUTO DIFFERENTIAL (10/02/2024 3:08 PM EGG FACTORY WORKER) WBC 6.72 4.00 - 12.00 10(3)/mcL 10/02/2024 3:24 PM EGG FACTORY WORKER [facility] RBC 3.73(L) 3.80 - 5.30 10(6)/mcL 10/02/2024 3:24 PM EGG FACTORY WORKER [facility] HEMOGLOBIN (HGB) 11.9(L) 12.0 - 15.8 g/dL 10/02/2024 3:24 PM EGG FACTORY WORKER [facility] HEMATOCRIT (HCT) 36.2 36.0 - 47.0 % 10/02/2024 3:24 PM EGG FACTORY WORKER [facility] MCV 97.1(H) 82.0 - 96.0 fL 10/02/2024 3:24 PM EGG FACTORY WORKER [facility] MCH 31.9 26.0 - 34.0 pg 10/02/2024 3:24 PM EGG FACTORY WORKER [facility] MCHC 32.9 31.0 - 36.0 g/dL 10/02/2024 3:24 PM EGG FACTORY WORKER [facility] PLATELET COUNT 204 140 - 440 10(3)/mcL 10/02/2024 3:24 PM EGG FACTORY WORKER [facility] RDW 14.3 11.8 - 15.5 % 10/02/2024 3:24 PM EGG FACTORY WORKER [facility] MPV 10.6 9.7 - 12.4 fL 10/02/2024 3:24 PM EGG FACTORY WORKER [facility] NEUTROPHILS 83.7(H) 47.0 - 73.0 % 10/02/2024 3:24 PM EGG FACTORY WORKER [facility] LYMPHOCYTES 10.7(L) 18.0 - 42.0 % 10/02/2024 3:24 PM EGG FACTORY WORKER [facility] MONOCYTES 5.4 4.0 - 12.0 % 10/02/2024 3:24 PM [facility] EOSINOPHILS 0.1 0.0 - 5.0 % 10/02/2024 3:24 PM [facility] BASOPHILS 0.1 0.0 - 1.0 % 10/02/2024 3:24 PM [facility] ABSOLUTE NEUTROPHILS 5.62 1.60 - 7.70 10(3)/[facility] 10/02/2024 3:24 PM [facility] ABSOLUTE LYMPHOCYTES 0.72(L) 1.30 - 3.20 10(3)/[facility] 10/02/2024 3:24 PM [facility] ABSOLUTE MONOCYTES 0.36 0.20 - 1.00 10(3)/[facility] 10/02/2024 3:24 PM [facility] ABSOLUTE EOSINOPHIL 0.01 0.00 - 0.40 10(3)/[facility] 10/02/2024 3:24 PM [facility] ABSOLUTE BASOPHILS 0.01 0.00 - 0.10 10(3)/[facility] 10/02/2024 3:24 PM [facility] NRBC PER 100 WBC 0 10/02/20 3:24 PM [facility] Blood Sub-Q Port Venou s Access Device (Medi-Port, Implanted Port) / Unknown 10/02/2024 3:08 PM EGG FACTORY WORKER 10/02/2024 3:08 PM [facility] Markus Finley MD HEMATOLOGY ORDERABLES Fi nal Result [facility] [address] [place] [address] * THYROID STIMULATING HORMONE (TSH) (10/02/2024 3:08 PM EGG FACTORY WORKER) TSH 1.466 0.300 - 5.000 mIU/L 10/02/2024 3:59 PM EGG FACTORY WORKER [facility] Blood Sub-Q Port Venou s Access Device (Medi-Port, Implanted Port) / Unknown 10/02/2024 3:08 PM EGG FACTORY WORKER 10/02/2024 3:08 PM EGG FACTORY WORKER Markus Finley MD CHEMISTRY ORDERABLES Fin al Result Performing Organization Address [facility]/ZIP Co de Phone Number [facility] [address] [place] [address] * (ABNORMAL) CMP (COMPREHENSIVE METABOLIC PANEL) (10/02/2024 3:08 PM EGG FACTORY WORKER) SODIUM 136 136 - 145 mmol/L 10/02/2024 3:40 PM EGG FACTORY WORKER [facility] POTASSIUM 4.5 3.5 - 5.1 mmol/L 10/02/2024 3:40 PM EGG FACTORY WORKER [facility] CHLORIDE 109(H) 98 - 107 mmol/L 10/02/2024 3:40 PM EGG FACTORY WORKER [facility] CO2, VENOUS 21(L) 22 - 30 mmol/L 10/02/2024 3:40 PM EGG FACTORY WORKER [facility] ANION GAP 10.5 <18.0 mmol/L 10/02/2024 3:40 PM EGG FACTORY WORKER [facility] GLUCOSE 118(H) 70 - 99 mg/dL 10/02/2024 3:40 PM EGG FACTORY WORKER [facility] BUN 21(H) 5 - 18 mg/dL 10/02/2024 3:40 PM EGG FACTORY WORKER [facility] CREATININE, BLOOD 0.94 0.60 - 1.00 mg/dL 10/02/2024 3:40 PM [facility] BUN/CREATININE RATIO 22(H) 12 - 20 ratio 10/02/2024 3:40 PM [facility] TOTAL PROTEIN 6.2(L) 6.3 - 8.2 g/dL 10/02/2024 3:40 PM [facility] ALBUMIN 3.9 3.5 - 5.0 g/dL 10/02/2024 3:40 PM [facility] A/G RATIO 1.7 1.0 - 2.2 10/02/2024 3:40 PM [facility] CALCIUM 9.0 8.7 - 10.5 mg/dL 10/02/2024 3:40 PM [facility] T BILI 0.2 0.2 - 1.2 mg/dL 10/02/2024 3:40 PM [facility] SGOT (AST) 17 5 - 34 U/L 10/02/2024 3:40 PM [facility] SGPT (ALT) 52 0 - 55 U/L 10/02/2024 3:40 PM [facility] ALKALINE PHOSPHATASE 45 40 - 150 U/L 10/02/2024 3:40 PM [facility] IS THE PATIENT REQUIRED TO BE FASTING? No 10/02/2024 3:40 PM [facility] GFR, ESTIMATED >60 >=60 10/02/2024 3:40 PM [facility] Comment: Creatinine Clearance is the preferred criteria for selecting drug dose adjustments in renally impaired patients. ??The GFR is provided as additional pertinent clinical information. GFR is reported in mL/min/1.73 sq m. Calculation based on the Chronic Kidney Disease Epidemiology Collaboration (CKD- EPI) equation refit without adjustment for race. GFR, EST. >60 >=60 024 3:40 PM [facility] GFR, EST. NONAFRICAN >60 >=60 10/02/2024 3:40 PM [facility] Blood Sub-Q Port Venou s Access Device (Medi-Port, Implanted Port) / Unknown 10/02/2024 3:08 PM EGG FACTORY WORKER 10/02/2024 3:08 PM EGG FACTORY WORKER Markus Finley MD CHEMISTRY ORDERABLES Fin al Result [facility] [address] [place] [address] documented in this encounter Visit Diagnoses Diagnosis [...] melanoma (HCC) New Bag 10/02/2024 2:45 PM EGG FACTORY WORKER 1,000 mL 999 mL/hr Heparin Na (Pork) Lock Flsh PF SOLN 50 Units 50 Units, Intravenous, ONCE, 1 dose, On Tue10/02/24 at 1530Indications:Metastatic melanoma (HCC) Given 10/02/2024 2:01 PM EGG FACTORY WORKER 50 Units documented in this encounter Care Teams Calendering Machine Operator Relationship Specialty Start Date End Date Pritesh Chu MD [address] [address] PCP - General Family Medicine 04/18/24 Markus Finley MD [address] [place] [address] Consulting Physician Medical Oncology 04/18/24 Zander Cha MD [address] [address] Consulting Physician Colon and Rectal Surgery 08/24/24 documented as of this encounter
--- OUTSIDE RECORDS SUMMARY | 2024-10-26 10:53 | XMS_ITS | Encounter Summary ---
Author Organization [facility] Address [address] [facility] [place] [address] Phone Care Team Providers Care Veneer Drier Tailer Name Role Phone Pritesh Chu MD Primary Care Provider [phone] Markus Finley MD Unavailable [phone] Zander Cha MD Unavailable Encounter Details Date Type Department Care Team (Late st Contact Info) Description 09/11/2024 1:40 PM KAIWHAKAHAERE [facility] [address] [place] [address] Markus Finley MD [address] [place] [address] Discharge Disposition: Discharged to home or Selfcare Social History Tobacco Use Types Packs/Day Years Used Date Smoking Tobacco: Former Cigarettes 0.5 5.6 S tarted: 04/18/2016 Smokeless Tobacco: Never Tobacco Cessation:Counseling Given: Not Answered Alcohol Use Standard Drinks/Week Comments Not Currently 0 (1 standard drink = 0.6 oz pur e alcohol) quit 2023 [facility] Utilities Answer Date Recorded In the past 12 months has th e electric, gas, oil, or water [employer] threatened to shut off services in your home? Patient declined 08/01/2024 Social Connection and Isolation Panel [NHANES] A nswer Date Recorded In a typical week, how many times do you talk on the phone with family, friends, or neighbors? Patient declined 08/01/2024 How often do you get togethe r with friends or relatives? Patient declined 08/01/2024 How often do you attend latter day or voodoo serv ices? Patient declined 08/01/2024 Do you belong to any clubs o r organizations such as latter day groups, unions, fraternal or athletic groups, or [...] medical care, and heating? Patient declined 08/01/2024 [facility] - Occupational Stress Questionnaire Answer Date [...] any time in the past 12 m [facility], were you homeless or living in a group home (including now)? Patient declined 08/01/2024 Sexually [...] Comments Blood Pressure 131/90 09/11/2024 2:01 PM KAIWHAKAHAERE Pulse 83 09/11/2024 2:01 PM KAIWHAKAHAERE Temperature 36.6 ??C (97.8 ??F) 09/11/2024 2:01 PM CS T Respiratory Rate 18 09/11/2024 2:01 PM KAIWHAKAHAERE Oxygen Saturation 98% 09/11/2024 2:01 PM KAIWHAKAHAERE Inhaled Oxygen Concentration - - Weight 114.2 kg (251 lb 12.8 oz) 09/11/2024 2:01 PM KAIWHAKAHAERE Height 167.6 cm (5' 6 ) 09/11/2024 2:01 PM KAIWHAKAHAERE Body Mass Index 40.64 09/11/2024 2:01 PM KAIWHAKAHAERE documented in this encounter Progress Notes * [...] received on 07/17/24. 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 Patient was discharged home with plans to continue IV NS through infusion clinic along with Prednisone 100 mg po BID plus Levothyroxine 100 mcg po AM. Oral steroids were decreased to Prednisone 100 mg AM with 20 mg PM on 08/10/24. 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 abdomen pelvis done at [facility] on 06/27/2024 No evidence of [...] for Markus Moses MD. 09/11/2024, 2:12 PM KAIWHAKAHAERE HAKAHAERE documented in this encounter Miscellaneous Notes * Interdisciplinary - Sandra Mcclelland - 09/11/2024 1:40 PM CST Patient reports no complaints. Pain score is 0. HAKAHAERE * Interdisciplinary - Sandra Mcclelland - 09/11/2024 1:40 PM CST AVS declined. Patient will follow up in 3 weeks. HAKAHAERE documented in this encounter Plan of Treatment Upcoming Encounters Date Type Department Care Team (Late st Contact Info) Description 11/15/2024 1:00 PM KAIWHAKAHAERE Lab [facility] Laboratory Services [address] [place] [address] Markus Finley MD [address] [place] [address] 11/15/2024 2:00 PM KAIWHAKAHAERE Appointment [facility] MRI [address] [place] [address] Markus Finley MD [address] [place] [address] Discharge Disposition: Discharged to home or Selfcare documented as of this encounter Visit Diagnoses Not on filedocumented in this encounter Care Teams Veneer Drier Tailer Relationship Specialty Start Date End Date Pritesh Chu MD [address] [place] [address] PCP - General Family Medicine 04/18/24 Markus Finley MD [address] [place] [address] Consulting Physician Medical Oncology 04/18/24 Zander Cha MD [address] [address] Consulting Physician Colon and Rectal Surgery 08/24/24 documented as of this encounter
--- OUTSIDE RECORDS SUMMARY | 2024-10-26 10:53 | XMS_ITS | Encounter Summary ---
Author Organization [employer] Care Team Providers Care Combatant Diver Officer Name Role Phone Pritesh Chu MD Primary Care Provider [phone] Markus Finley MD Unavailable [phone] Zander Cha MD Unavailable Encounter Details Date Type Department Care Team (Latest Contact Info) Description 09/25/2024 Travel Social History Tobacco Use Types Packs/Day Years Used Date Smoking Tobacco: Former Cigarettes 0.5 5.6 S tarted: 04/18/2016 Smokeless Tobacco: Never Alcohol Use Standard Drinks/Week Comments Not Currently 0 (1 standard drink = 0.6 oz pur e alcohol) quit 2023 [facility] Utilities Answer Date Recorded In the past 12 months has [employer], gas, oil, or water [employer] threatened to shut off services in your [...] week 09/25/2024 How often do you attend [facility] or rastafari services? Never 09/25/2024 Do you belong to any clubs o r organizations such as shinto groups, unions, fraternal or athletic groups, or [...] living in a longterm (including now)? No 09/25/2024 Sexually Active Control [...] on one occasion? Never 09/25/2024 11:46 AM ELECTRIC WHEELCHAIR REPAIRER Hayde Hopson documented as of this encounter Plan of Treatment Upcoming Encounters Date Type Department Care Team (Late st Contact Info) Description 11/15/2024 1:00 PM ELECTRIC WHEELCHAIR REPAIRER Lab [facility] [address] [place] [phone] Markus Finley MD [address] [place] [address] 11/15/2024 2:00 PM ELECTRIC WHEELCHAIR REPAIRER Appointment [facility] [address] [place] [address] Markus Finley MD [address] [place] [address] Discharge Disposition: Discharged to home or Selfcare documented as of this encounter Visit Diagnoses Not on filedocumented in this encounter Care Teams Combatant Diver Officer Relationship Specialty Start Date End Date Pritesh Chu MD [address] [place] [address] PCP - General Family Medicine 04/18/24 Markus Finley MD [address] [place] [address] Consulting Physician Medical Oncology 04/18/24 Zander Cha MD [address] [address] Consulting Physician Colon and Rectal Surgery 08/24/24 documented as of this encounter
--- OUTSIDE RECORDS SUMMARY | 2024-10-26 10:53 | XMS_ITS | Encounter Summary ---
Author Organization [facility] Address [address] [place] [address] Phone Care Team Providers Care Medical Communication Specialist Name Role Phone Pritesh Chu MD Primary Care Provider [phone] Markus Finley MD Unavailable [phone] Zander Cha MD Unavailable Reason for Visit * Reason Comments Procedure Skin Lesion Remove lesion from l eft calf Encounter Details Date Type Department Care Team (Late st Contact Info) Description 09/04/2024 11:15 AM CDT Procedure Visit [facility] - General Surgery - [place] [address] [address] Zander Cha MD [address] [address] Metastatic melanoma (HCC) (Primary Dx); Subcutaneous nodule [...] declined 08/01/2024 How often do you attend yarsani or alevism serv ices? Patient declined 08/01/2024 Do you belong to any clubs o r organizations such as yarsani groups, unions, fraternal or athletic groups, or [...] medical care, and heating? Patient declined 08/01/2024 [facility] Occupat ional Health - Occupational [...] a snf (including now)? Patient declined 08/01/2024 Sexually Active [...] - 09/04/2024 11:[address] Finlye, can you or your office call Dr. [...] than 2 cm. Surgeon: Zander Cha MD Corporate Accountant: Debo Bush RN Anesthesia: 3 cc 1% [...] st Contact Info) Description 11/15/2024 1:00 PM CALCINE FURNACE LOADER Lab [facility] [address] [place] [address] Markus Finley MD [address] [place] [address] 11/15/2024 2:00 PM CALCINE FURNACE LOADER [facility]ment [facility] [address] [place] [address] Markus Finley MD [address] [place] [address] Discharge Disposition: Discharged to home or Selfcare [...] 09/04/2024 01:02 PM ? Ordering Location: ? [facility] - ?Received: ?09/04/2024 01:03 PM ? General Surgery - Rodríguez ? Pathologist: ? Romelia Horn MD PhD ? Specimen: ?Leg, Excision of skin lesion from left lower leg ? 09/06/2024 8:29 AM CDT [facility] FINAL DIAGNOSIS Skin, left lower leg, lesion, excision: - Consistent with metastatic melanoma, 4 mm - Sufficient tumor cells present for molecular studies if clinically indicated 09/06/2024 8:29 AM [facility] Comment A round nodular tumor is present in the dermis. The tumor cells are large epithelioid with large pleomorphic nuclei and prominent nucleoli. There are scant pigments suggesting melanin. 09/06/2024 8:29 AM CDT [facility] Pre-Operative Diagnosis Excision of skin lesion from left lower leg 09/06/2024 8:29 AM [facility] Gross Description A. Excision of [...] 44 minutes. KS/sb 09/06/2024 8:29 AM CDT [facility] Microscopic Description Microscopic examination was performed which supports the final diagnosis. All control tissues stained appropriately. 09/06/2024 8:29 AM CDT [facility] Other LOWER LIMB STRUCTURE / Unknown Non-Phlebotomy Collection / Unknown 09/04/2024 1:02 PM CDT 09/04/2024 1:03 PM CDT us Zander Cha MD PATHOLOGY/CYTOLOGY ORDERABLES Fi nal Result [facility] [address] [place] [address] * EXC SKIN MALIG 0.6-1CM TRUNK,ARM,LEG (09/04/2024 [...] 2 cm. ?? Surgeon: Zander Cha MD Corporate Accountant: Debo Bush RN Anesthesia: ??3 cc 1% [...] Action Date Dose Rate Site lidocaine-EPINEPHrine 1 %-1:260853 injection 3 mL 3 mL, Injection, ONCE, 1 dose, On Tue09/04/24 at 1230Indications:Metastatic melanoma (HCC) Given 09/04/2024 11:51 AM CDT 3 mL documented in this encounter Care Teams Medical Communication Specialist Relationship Specialty Start Date End Date Pritesh Chu MD [address] [address] PCP - General Family Medicine 04/18/24 Markus Finley MD [address] [place] [address] Consulting Physician Medical Oncology 04/18/24 Zander Cha MD #[address] [address] Consulting Physician Colon and Rectal Surgery 08/24/24 documented as of this encounter
--- OUTSIDE RECORDS SUMMARY | 2024-10-26 10:53 | XMS_ITS | Encounter Summary ---
Author Organization [facility] Address [address] [place] [address] Phone Care Team Providers Care Can Tester Name Role Phone Pritesh Chu MD Primary Care Provider [phone] Makrus Finley MD Unavailable [phone] Zander Cha MD Unavailable Reason for Visit * Reason Onset Date Comments Social Concerns 09/25/2024 Encounter Details Date Type Department Care Team (Late st Contact Info) Description 09/25/2024 Patient Outreach [facility] [address] [place] [address] Navigator, [place] Social Concerns Social History Tobacco Use Types Packs/Day Years Used Date Smoking Tobacco: Former Cigarettes 0.5 5.6 S tarted: 04/18/2016 Smokeless Tobacco: Never Alcohol Use Standard Drinks/Week Comments Not Currently 0 (1 standard drink = 0.6 oz pur e alcohol) quit 2023 [facility] Utilities Answer Date Recorded In [...] often do you attend chur ch or baptism services? Never 09/25/2024 Do you belong to any clubs o r organizations such as tenriism groups, unions, fraternal or athletic groups, or [...] medical care, and heating? Somewhat hard 09/25/2024 [facility] - Occupational [...] in the past 12 m [facility], were you homeless or living in [...] alcohol? Monthly or less 09/25/2024 11:46 AM DATA MANAGEMENT CONSULTANT Afshin Hopson Q2: How many drinks containing alcohol do you have on a typical day when you are drinking? 1 or 2 09/25/2024 11:46 AM DATA MANAGEMENT CONSULTANT Hayde Hopson Q3: How often do you have si x or more drinks on one occasion? Never 09/25/2024 11:46 AM DATA MANAGEMENT CONSULTANT Hayde Hopson documented as of this encounter Progress Notes * Hayde Hopson - 09/25/2024 11:55 AM CST Contacted [...] 0 min Stress: Stress Concern Present (09/25/2024) [place] [facility] - Occupational Stress Questionnaire Feeling of Stress : Very much Social Integration: Socially Isolated (09/25/2024) Social Connection and Isolation Panel [NHANES] Frequency of Communication with Friends and Family: More than three times a week Frequency of Social Gatherings with Friends and Family: More than three times a week Attends Lutheran Services: Never Active Member of Clubs or Organizations: No Attends Club or Organization Meetings: Never Marital Status: Never Depression: Not on file No further follow up needed at this time. MANAGEMENT CONSULTANT documented in this encounter Plan of Treatment Upcoming Encounters Date Type Department Care Team (Late st Contact Info) Description 11/15/2024 1:00 PM DATA MANAGEMENT CONSULTANT Lab [facility] 1 [place] [address] Markus Finley MD [address] [place] [address] 11/15/2024 2:00 PM DATA MANAGEMENT CONSULTANT Appointment [facility] MRI [address] [place] [address] Markus Finley MD [address] [place] [address] Discharge Disposition: Discharged to home or Selfcare documented as of this encounter Interventions Community Resource Recommendations Community Resource Services Recommended Domains Addressed Status Status Reason/Outcome Date/Time HIS Service Station Food Insecurity Needs Food Insecurity Recommended 09/25/2024 11:54 AM DATA MANAGEMENT CONSULTANT [place] [facility] Food Insecurity Needs Food Insecurity Recommended 09/25/2024 11:54 AM DATA MANAGEMENT CONSULTANT [facility] Financial Resource Needs, Food Insecurity Needs Financial Resource Strain, Food Insecurity Recommended 09/25/2024 11:54 AM DATA MANAGEMENT CONSULTANT [facility] - Mental Health Services Mental Health Evaluation Stress Recommended 09/25/2024 11:54 AM DATA MANAGEMENT CONSULTANT [place] [facility] Division of Mental Health - Inpatient Services Mental Health Evaluation, Mental Health Services Stress Recommended 09/25/2024 11:54 AM DATA MANAGEMENT CONSULTANT [facility] Health[facility] - [facility] Home Care Services - Psychiatric Care Medications for Mental Health, Mental Health Education, Mental Health Evaluation, Mental Health Services Stress Recommended 09/25/2024 11:54 AM DATA MANAGEMENT CONSULTANT documented as of this encounter Visit Diagnoses Not on filedocumented in this encounter Care Teams Can Tester Relationship Specialty Start Date End Date Pritesh Chu MD [address] [place] [address] PCP - General Family Medicine 04/18/24 Markus Finley MD [address] [place] [address] Consulting Physician Medical Oncology 04/18/24 Zander Cha MD [address] [address] Consulting Physician Colon and Rectal Surgery 08/24/24 documented as of this encounter
--- OUTSIDE RECORDS SUMMARY | 2024-10-26 10:53 | XMS_ITS | Encounter Summary ---
Author Organization [employer] Care Team Providers Care Welding Instructor Name Role Phone Pritesh Chu MD Primary Care Provider [phone] Markus Finley MD Unavailable [phone] Zander Cha MD Unavailable Encounter Details Date Type Department Care Team (Latest Contact Info) Description 08/24/2024 Travel Social History Tobacco Use Types Packs/Day Years Used Date Smoking Tobacco: Former Cigarettes 0.5 8.5 S tarted: 04/18/2016 Smokeless Tobacco: Never Alcohol Use Standard Drinks/Week Comments Yes 0 (1 standard drink = 0.6 oz pur e alcohol) [facility] Utilities Answer Date Recorded In the past 12 months has [employer], gas, oil, or water [employer] threatened to shut off services in [...] How often do you attend amish or alevism serv ices? Patient declined 08/01/2024 [...] medical care, and heating? Patient declined 08/01/2024 [facility] - Occupational Stress Questionnaire Answer [...] any time in the past 12 m [facility], were you homeless or [...] st Contact Info) Description 11/15/2024 1:00 PM COAL WHEELER Lab [facility] Services [address] [place] [address] Markus Finley MD [address] [place] [address] 11/15/2024 2:00 PM COAL WHEELER Appointment [facility] MRI [address] [place] [address] Markus Finley MD [address] [place] [address] Discharge Disposition: Discharged to home or Selfcare documented as of this encounter Visit Diagnoses Not on filedocumented in this encounter Additional Health Concerns Infection Onset Date Last Indicated Resolved Time C. difficile Rule-Out 08/24/2024 08/24/20242023 1:42 PM CDT documented as of this encounter Care Teams Welding Instructor Relationship Specialty Start Date End Date Pritesh Chu MD [address] [place] [address] PCP - General Family Medicine 04/18/24 Markus Finley MD [address] [place] [address] Consulting Physician Medical Oncology 04/18/24 Zander Cha MD [address] [address] Consulting Physician Colon and Rectal Surgery 08/24/24 documented as of this encounter
--- OUTSIDE RECORDS SUMMARY | 2024-10-26 10:53 | XMS_ITS | Encounter Summary ---
Author Organization [employer] Care Team Providers Care Doctor Chiropractic Name Role Phone Pritesh Chu MD Primary Care Provider [phone] Markus Finley MD Unavailable [phone] Zander Cha MD Unavailable Encounter Details Date Type Department Care Team (Latest Contact Info) Description 09/18/2024 Travel Social History Tobacco Use Types Packs/Day Years Used Date Smoking Tobacco: Former Cigarettes 0.5 5.6 S tarted: 04/18/2016 Smokeless Tobacco: Never Alcohol Use Standard Drinks/Week Comments Not Currently 0 (1 standard drink = 0.6 oz pur e alcohol) quit 2023 [facility] Utilities Answer Date Recorded In the past 12 months has [employer], gas, oil, or water [employer] threatened to shut off services in your home? Patient declined 08/01/2024 Social Connection and Isolation Panel [NHANES] A nswer Date Recorded In a typical week, how many times do you talk on the phone with family, friends, or neighbors? Patient declined 08/01/2024 How often do you get togethe r with friends or relatives? Patient declined 08/01/2024 How often do you attend voodoo or christian serv ices? Patient declined 08/01/2024 [...] Patient declined 08/01/2024 [facility] - Occupational Stress Questionnaire Answer [...] the past 12 m [facility], were you homeless or living in a correction (including now)? Patient declined 08/01/2024 Sexually Active [...] st Contact Info) Description 11/15/2024 1:00 PM TITLE ONE TEACHER Lab [facility] Services [address] [place] [address] Markus Finley MD [address] [place] [address] 11/15/2024 2:00 PM TITLE ONE TEACHER Appointment [facility] MRI 1 [place] [address] Markus Finley MD [address] [place] [address] Discharge Disposition: Discharged to home or Selfcare documented as of this encounter Visit Diagnoses Not on filedocumented in this encounter Care Teams Doctor Chiropractic Relationship Specialty Start Date End Date Pritesh Chu MD [address] [place], [place] [phone] PCP - General Family Medicine 04/18/24 Markus Finley MD [address] [place] [address] Consulting Physician Medical Oncology 04/18/24 Zander Cha MD [address] [place] [address] Consulting Physician Colon and Rectal Surgery 08/24/24 documented as of this encounter
--- OUTSIDE RECORDS SUMMARY | 2024-10-26 10:53 | XMS_ITS | Encounter Summary ---
Author Organization [facility] Address [address] [place] [address] Phone Care Team Providers Care Aluminum Siding Applicator Name Role Phone Pritesh Chu MD Primary Care Provider Markus Finley MD Unavailable [phone] Zander Cha MD Unavailable Encounter Details Date Type Department Care Team (Late st Contact Info) Description 08/27/2024 Telephone [facility] [address] [place] [phone] Markus Finley MD [address] [place] [address] Social History Tobacco Use Types Packs/Day Years Used Date Smoking Tobacco: Former Cigarettes 0.5 8.5 S tarted: 04/18/2016 Smokeless Tobacco: Never Alcohol Use Standard Drinks/Week Comments Yes 0 (1 standard drink = 0.6 oz pur e alcohol) [facility] Utilities Answer Date Recorded In the past 12 months has [employer], gas, oil, or water company threatened to [...] declined 08/01/2024 How often do you attend denominational or latter-day serv ices? Patient declined 08/01/2024 Do you belong to any clubs o r organizations such as denominational groups, unions, fraternal or athletic groups, or [...] medical care, and heating? Patient declined 08/01/2024 [facility] - Occupational Stress Questionnaire Answer [...] a [facility] (including now)? Patient declined 08/01/2024 Comments No [...] st Contact Info) Description 11/15/2024 1:00 PM CHEMICAL MAKER Lab [facility] Laboratory Services [address] [place] [address] Markus Finley MD [address] [place] [address] 11/15/2024 2:00 PM CHEMICAL MAKER Appointment [facility] [address] [place] [address] Markus Finley MD [address] [place] [address] Discharge Disposition: Discharged to home or Selfcare documented as of this encounter Visit Diagnoses Not on filedocumented in this encounter Care Teams Aluminum Siding Applicator Relationship Specialty Start Date End Date Pritesh Chu MD [address] [place] [address] PCP - General Family Medicine 04/18/24 Markus Finley MD [address] [place] [address] Consulting Physician Medical Oncology 04/18/24 Zander Cha MD [address] [address] Consulting Physician Colon and Rectal Surgery 08/24/24 documented as of this encounter
--- OUTSIDE RECORDS SUMMARY | 2024-10-26 10:53 | XMS_ITS | Encounter Summary ---
Author Organization [facility] Address [address] [facility] [place] [address] Phone Care Team Providers Care Driller And Broacher Name Role Phone Pritesh Chu MD Primary Care Provider [phone] Markus Finley MD Unavailable [phone] Zander Cha MD Unavailable Encounter Details Date Type Department Care Team (Late st Contact Info) Description 09/18/2024 1:30 PM [facility]FF [facility] Clinical Support [facility] On[facility] Services [address] [place] [phone] Markus Finley MD [address] [place] [address] Metastatic melanoma (HCC) Discharge Disposition: Discharged to home or Selfcare Social History Tobacco Use Types Packs/Day Years Used Date Smoking Tobacco: Former Cigarettes 0.5 5.6 S tarted: 04/18/2016 Smokeless Tobacco: Never Alcohol Use Standard Drinks/Week Comments Not Currently 0 (1 standard drink = 0.6 oz pur e alcohol) quit 2023 [facility] Utilities Answer Date Recorded In the past 12 months has th e electric, gas, oil, or water [employer] threatened to shut off services in your home? Patient declined 08/01/2024 Social Connection and Isolation Panel [NHANES] A nswer Date Recorded In a typical week, how many times do you talk on the phone with family, friends, or neighbors? Patient declined 08/01/2024 How often do you get togethe r with friends or relatives? Patient declined 08/01/2024 How often do you attend anglican or anabaptist serv ices? Patient declined 08/01/2024 Do you [...] medical care, and heating? Patient declined 08/01/2024 [facility] - Occupational Stress Questionnaire Answer [...] Comments Blood Pressure 135/90 09/18/2024 2:53 PM [facility]FF [facility] Pulse 76 09/18/2024 2:53 PM [facility] Temperature 36.4 ??C (97.5 ??F) 09/18/2024 2:53 [...] with bandaid. Pt left in safe disposition. [facility] documented in this encounter Plan of Treatment Upcoming Encounters Date Type Department Care Team (Late st Contact Info) Description 11/15/2024 1:00 PM [facility]FF PHARM[facility] Lab [facility] Services [address] [place] [address] Markus Finley MD [address] [place] [address] 11/15/2024 2:00 PM [facility] Appointment [facility] MRI [address] [place] [phone] Markus Finley MD [address] [place] [address] Discharge Disposition: Discharged to home or Selfcare documented as of this encounter Procedures Procedure Name Priority Date/Time Associated Diagnosis Comments CBC WITH AUTO DIFFERENTIAL STAT 09/18/2024 2:21 PM [facility] Metastatic melanoma (HCC) THYROID STIMULATING HORMONE (TSH) STAT 09/18/2024 2:21 PM [facility] Metastatic melanoma (HCC) CMP (COMPREHENSIVE METABOLIC PANEL) STAT 09/18/2024 2:21 PM [facility] Metastatic melanoma (HCC) COMPLETE BLOOD COUNT (CBC) WITH DIFF STAT 09/18/2024 2:21 PM [facility] Metastatic melanoma (HCC) documented in this encounter Results * (ABNORMAL) CBC WITH AUTO DIFFERENTIAL (09/18/2024 2:21 PM [facility]) WBC 8.36 4.00 - 12.00 10(3)/mcL 09/18/2024 2:57 PM [facility] RBC 3.90 3.80 - 5.30 10(6)/mcL 09/18/2024 2:57 PM [facility] HEMOGLOBIN (HGB) 12.4 12.0 - 15.8 g/dL 09/18/2024 2:57 PM [facility] HEMATOCRIT (HCT) 37.2 36.0 - 47.0 % 09/18/2024 2:57 PM [facility] MCV 95.4 82.0 - 96.0 fL 09/18/2024 2:57 PM [facility] MCH 31.8 26.0 - 34.0 pg 09/18/2024 2:57 PM [facility] MCHC 33.3 31.0 - 36.0 g/dL 09/18/2024 2:57 PM [facility] PLATELET COUNT 211 140 - 440 10(3)/[facility] 09/18/2024 2:57 PM [facility] RDW 15.3 11.8 - 15.5 % 09/18/2024 2:57 PM [facility] MPV 9.6(L) 9.7 - 12.4 fL 09/18/2024 2:57 PM [facility] NEUTROPHILS 91.0(H) 47.0 - 73.0 % 09/18/2024 2:57 PM [facility] LYMPHOCYTES 4.8(L) 18.0 - 42.0 % 09/18/2024 2:57 PM [facility] MONOCYTES 4.1 4.0 - 12.0 % 09/18/2024 2:57 PM [facility] EOSINOPHILS 0.0 0.0 - 5.0 % 09/18/2024 2:57 PM [facility] BASOPHILS 0.1 0.0 - 1.0 % 09/18/2024 2:57 PM [facility] ABSOLUTE NEUTROPHILS 7.61 1.60 - 7.70 10(3)/[facility] 09/18/2024 2:57 PM [facility] ABSOLUTE LYMPHOCYTES 0.40(L) 1.30 - 3.20 10(3)/[facility] 09/18/2024 2:57 PM [facility] ABSOLUTE MONOCYTES 0.34 0.20 - 1.00 10(3)/[facility] 09/18/2024 2:57 PM [facility] ABSOLUTE EOSINOPHIL 0.00 0.00 - 0.40 10(3)/[facility] 09/18/2024 2:57 PM [facility] ABSOLUTE BASOPHILS 0.01 0.00 - 0.10 10(3)/[facility] 09/18/2024 2:57 PM [facility] NRBC PER 100 WBC 0 09/18/20 2:57 PM [facility] RESULTS ARE CONSISTENT WITH PERIPHERAL SMEAR REVIEW Yes 09/18/2024 2:57 PM [facility] POLYCHROMASIA 1+ 09/18/2024 2:57 PM [facility] Blood Sub-Q Port Venou s Access Device (Medi-Port, Implanted Port) / Unknown 09/18/2024 2:21 PM [facility] 09/18/2024 2:21 PM [facility] Markus Finley MD HEMATOLOGY ORDERABLES Fi nal Result Performing Organization Address City/[facility]/ZIP Co de Phone Number [facility] [address] [place] [address] * THYROID STIMULATING HORMONE (TSH) (09/18/2024 2:21 PM [facility]) TSH 1.270 0.300 - 5.000 mIU/L 09/18/2024 3:31 PM [facility] Blood Sub-Q Port Venou s Access Device (Medi-Port, Implanted Port) / Unknown 09/18/2024 2:21 PM [facility] 09/18/2024 2:21 PM [facility] Markus Finley MD CHEMISTRY ORDERABLES Fin al Result [facility] [address] [place] [address] * (ABNORMAL) CMP (COMPREHENSIVE METABOLIC PANEL) (09/18/2024 2:21 PM [facility]) SODIUM 140 136 - 145 mmol/L 09/18/2024 2:50 PM [facility] POTASSIUM 4.2 3.5 - 5.1 mmol/L 09/18/2024 2:50 PM [facility] CHLORIDE 107 98 - 107 mmol/L 09/18/2024 2:50 PM [facility] CO2, VENOUS 25 22 - 30 mmol/L 09/18/2024 2:50 PM [facility] ANION GAP 12.2 <18.0 mmol/L 09/18/2024 2:50 PM [facility] GLUCOSE 114(H) 70 - 99 mg/dL 09/18/2024 2:50 PM [facility] BUN 24(H) 5 - 18 mg/dL 09/18/2024 2:50 PM [facility] CREATININE, BLOOD 0.78 0.60 - 1.00 mg/dL 09/18/2024 2:50 PM [facility] BUN/CREATININE RATIO 31(H) 12 - 20 ratio 09/18/2024 2:50 PM [facility] TOTAL PROTEIN 5.9(L) 6.3 - 8.2 g/dL 09/18/2024 2:50 PM [facility] ALBUMIN 3.8 3.5 - 5.0 g/dL 09/18/2024 2:50 PM [facility] A/G RATIO 1.8 1.0 - 2.2 09/18/2024 2:50 PM [facility] CALCIUM 9.0 8.7 - 10.5 mg/dL 09/18/2024 2:50 PM [facility] T BILI 0.4 0.2 - 1.2 mg/dL 09/18/2024 2:50 PM [facility] SGOT (AST) 11 5 - 34 U/L 09/18/2024 2:50 PM [facility] SGPT (ALT) 45 0 - 55 U/L 09/18/2024 2:50 PM [facility] ALKALINE PHOSPHATASE 45 40 - 150 U/L 09/18/2024 2:50 PM [facility] IS THE PATIENT REQUIRED TO BE FASTING? No 09/18/2024 2:50 PM [facility] GFR, ESTIMATED >60 >=60 09/18/2024 2:50 PM [facility] Comment: Creatinine Clearance is the preferred criteria for selecting drug dose adjustments in renally impaired patients. ??The GFR is provided as additional pertinent clinical information. GFR is reported in mL/min/1.73 sq m. Calculation based on the Chronic Kidney Disease Epidemiology Collaboration (CKD- EPI) equation refit without adjustment for race. GFR, EST. >60 >=60 024 2:50 PM [facility] GFR, EST. NONAFRICAN >60 >=60 09/18/2024 2:50 PM [facility] Blood Sub-Q Port Venou s Access Device (Medi-Port, Implanted Port) / Unknown 09/18/2024 2:21 PM [facility] 09/18/2024 2:21 PM [facility] Markus Finley MD CHEMISTRY ORDERABLES Fin al Result [facility] [address] [place] [address] documented in this encounter Visit Diagnoses Diagnosis Metastatic melanoma (HCC) Melanoma of skin, site unspecified documented in this encounter Administered Medications Inactive Administered Medications - up to 3 most recent administrations Medication Order MAR Action Action Date Dose Rate Site 0.9 % sodium chloride solution at 999 mL/hr, Intravenous, ONCE, 1 dose, On Tue09/18/24 at 1400Indications:Metastatic melanoma (HCC) New Bag 09/18/2024 2:00 PM [facility] 1,000 mL 999 mL/hr Heparin Na (Pork) Lock Flsh PF SOLN 50 Units 50 Units, Intravenous, ONCE, 1 dose, On Tue09/18/24 at 1400Indications:Metastatic melanoma (HCC) Given 09/18/2024 3:11 PM [facility] 50 Units documented in this encounter Care Teams Driller And Broacher Relationship Specialty Start Date End Date Prtiesh Chu MD [address] [place] [address] PCP - General Family Medicine 04/18/24 Markus Finley MD [address] [place] [address] Consulting Physician Medical Oncology 04/18/24 Zander Cha MD [address] [address] Consulting Physician Colon and Rectal Surgery 08/24/24 documented as of this encounter
--- OUTSIDE RECORDS SUMMARY | 2024-10-26 10:53 | XMS_ITS | Encounter Summary ---
Author Organization [facility] Address [address] [place] [address] Phone Care Team Providers Care Sales Training Coordinator Name Role Phone Pritesh Chu MD Primary Care Provider [phone] Markus Finley MD Unavailable [phone] Reason for Visit * Episode Based Medications (Routine) - Closed Specialty Diagnoses / Procedures Referred By Contross t Referred To Contact Diagnoses Metastatic melanoma (HCC) Markus Finley MD [address] [place] [address] Phone: tel: fax: [facility] Oncology Services [address] [place] [address] Phone: tel: fax: Referral ID Status Reason Start Date Expiration Date Visits Re quested Visits Authorized [id number] Closed 04/19/2024 1 30 Encounter Details Date Type Department Care Team (Late st Contact Info) Description 08/22/2024 11:30 AM CDT Clinical Support [facility] Oncology Services [address] [place] [address] Anthony Eckert MD [address] [place], [place] [id number] Markus Finley MD [address] [place] [address] Diarrhea due to drug (Primary Dx); Metastatic melanoma (HCC) Discharge Disposition: Discharged to home or Selfcare Social History Tobacco Use Types Packs/Day Years Used Date Smoking Tobacco: Former Cigarettes 0.5 8.5 S tarted: 04/18/2016 Smokeless Tobacco: Never Alcohol Use Standard Drinks/Week Comments Yes 0 (1 standard drink = 0.6 oz pur e alcohol) [facility] Utilities Answer Date Recorded In the past 12 months has e [employer], gas, oil, or water [employer] threatened to shut off services in your home? Patient declined 08/01/2024 Social Connection and Isolation Panel [NHANES] A nswer Date Recorded In a typical week, how many times do you talk on the phone with family, friends, or neighbors? Patient declined 08/01/2024 How often do you get togethe r with friends or relatives? Patient declined 08/01/2024 How often do you attend druze or tenriism serv ices? Patient declined 08/01/2024 [...] medical care, and heating? 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 Port accessed per policy, [...] st Contact Info) Description 11/15/2024 1:00 PM [facility] [address] [place] [address] Markus Finley MD [address] [place] [address] 11/15/2024 2:00 PM MILL HAND [facility] 1 [place] [address] Markus Finley MD [address] [place] [address] Discharge Disposition: Discharged to home or Selfcare [...] Units documented in this encounter Care Teams Sales Training Coordinator Relationship Specialty Start Date End Date Pritesh Chu MD [address] [address] PCP - General Family Medicine 04/18/24 Markus Finley MD [address] [place] [address] Consulting Physician Medical Oncology 04/18/24 documented as of this encounter
--- OUTSIDE RECORDS SUMMARY | 2024-10-26 10:53 | XMS_ITS | Encounter Summary ---
Author Organization [facility] Address [address] [facility] [place] [address] Phone Care Team Providers Care Medical Physiologist Name Role Phone Pritesh Chu MD Primary Care Provider [phone] Markus Finley MD Unavailable [phone] Zander Cha MD Unavailable Reason for Visit * Reason Comments Medication Refill Encounter Details Date Type Department Care Team (Late st Contact Info) Description 09/10/2024 [facility]ill [facility] Oncology Services [address] [place] [id number] Markus Finley MD [address] [place] [address] Medication Refill Social History Tobacco Use Types Packs/Day Years Used Date Smoking Tobacco: Former Cigarettes 0.5 5.6 S tarted: 04/18/2016 Smokeless Tobacco: Never Alcohol Use Standard Drinks/Week Comments Not Currently 0 (1 standard drink = 0.6 oz pur e alcohol) quit 2023 [facility] Utilities Answer Date Recorded In the past 12 months has [employer], oil, or [employer] threatened to shut off services in your home? Patient declined 08/01/2024 Social Connection and Isolation Panel [NHANES] A nswer Date Recorded In a typical week, how many times do you talk on the phone with family, friends, or neighbors? Patient declined 08/01/2024 How often do you get togethe r with friends or relatives? Patient declined 08/01/2024 How often do you attend yarsani or orthodox serv ices? Patient declined 08/01/2024 [...] medical care, and heating? Patient declined 08/01/2024 [facility] - Occupational Stress Questionnaire Answer Date Recorded [...] or living in a prison (including now)? Patient declined 08/01/2024 Sexually Active [...] Marie Barclay RN - 09/10/2024 11:09 AM POLITICAL SCIENCE INSTRUCTOR Potassium refilled per provider will decrease to 40meq daily as lst Potassium level on 09/07 was 4.7patient next follow up scheduled for 09/11/24. TICAL SCIENCE INSTRUCTOR documented in this encounter Plan of Treatment Upcoming Encounters Date Type Department Care Team (Late st Contact Info) Description 11/15/2024 1:00 PM POLITICAL SCIENCE INSTRUCTOR Lab [facility] Laboratory Services [address] [place] [address] Markus Finley MD [address] [place] [address] 11/15/2024 2:00 PM POLITICAL SCIENCE INSTRUCTOR Appointment [facility] MRI [address] [place] [address] Markus Finley MD [address] [place] [address] Discharge Disposition: Discharged to home or Selfcare documented as of this encounter Visit Diagnoses Not on filedocumented in this encounter Care Teams Medical Physiologist Relationship Specialty Start Date End Date Pritesh Chu MD [address] [place] [address] PCP - General Family Medicine 04/18/24 Markus Finley MD [address] [place] [address] Consulting Physician Medical Oncology 04/18/24 Zander Cha MD [address] [address] Consulting Physician Colon and Rectal Surgery 08/24/24 documented as of this encounter
--- OUTSIDE RECORDS SUMMARY | 2024-10-26 10:54 | XMS_ITS | Encounter Summary ---
Author Organization [facility] Address [address] [place] [address] Phone Care Team Providers Care Water Operator Name Role Phone Pritesh Chu MD Primary Care Provider [phone] Markus Finley MD Unavailable [phone] Reason for Visit * Reason Onset Date Comments Transition of Care 08/09/2024 Week #1 Encounter Details Date Type Department Care Team (Late st Contact Info) Description 08/09/2024 Patient Outreach [facility] Content Publisher Management [address] [place], [place] [phone] Lucille Lawson RN [place] Transition of Care (Week #1 ) Social History Tobacco Use Types Packs/Day Years Used Date Smoking Tobacco: Former Cigarettes 0.5 8.5 S tarted: 04/18/2016 Smokeless Tobacco: Never Alcohol Use Standard Drinks/Week Comments Yes 0 (1 standard drink = 0.6 oz pur e alcohol) [facility] Utilities Answer Date Recorded In the [...] declined 08/01/2024 How often do you attend anabaptist or latter day serv ices? Patient declined 08/01/2024 Do you [...] declined 08/01/2024 [facility] of Occupat ional Health - Occupational [...] Reviewed: Yes Next Steps: follow up with mortar carrier as schedule RN Care Management Assessment Scheduled: no does not want Social Work Assessment needed: no Patient needs further transition of care calls: No, not needed Please call Business Process Associate Lucille Lawson RN at [phone] with any questions. Follow Up Appointments: Patient and database report writer reviewed upcoming appointments and patient acknowledged understanding. All Patient Appointments Provider Department Dept Phone 08/10/2024 11:00 AM [facility] CC INFUSION BED1 [facility] Oncology Services [phone] 08/13/2024 2:00 PM Markus Finley [facility] Oncology Services [phone] 08/15/2024 3:00 PM [id number] [facility] PET [phone] documented in this encounter Plan of Treatment Upcoming Encounters Date Type Department Care Team (Late st Contact Info) Description 11/15/2024 1:00 PM TAILINGS DAM PUMPER Lab [facility] Laboratory Services [address] [place] [address] Markus Finley MD [address] [place] [address] 11/15/2024 2:00 PM TAILINGS DAM PUMPER Appointment [facility] MRI [address] [place] [phone] Markus Finley MD [address] [place] [address] Discharge Disposition: Discharged to home or Selfcare documented as of this encounter Visit Diagnoses Not on filedocumented in this encounter Care Teams Water Operator Relationship Specialty Start Date End Date Pritesh Chu MD [address] [place] [address] PCP - General Family Medicine 04/18/24 Markus Finley MD [address] [place] [address] Consulting Physician Medical Oncology 04/18/24 documented as of this encounter
--- OUTSIDE RECORDS SUMMARY | 2024-10-26 10:54 | XMS_ITS | Encounter Summary ---
Author Organization [facility] Address [address] [place] [address] Phone Care Team Providers Care Roll Setter Name Role Phone Pritesh Chu MD Primary Care Provider [phone] Markus Finley MD Unavailable [phone] Reason for Visit * Episode Based Medications (Routine) - Closed Specialty Diagnoses / Procedures Referred By Contross t Referred To Contact Diagnoses Metastatic melanoma (HCC) Markus Finley MD [address] [place] [address] Phone: tel: fax: [facility] Oncology Services [address] [place] [address] Phone: tel: fax: Referral ID Status Reason Start Date Expiration Date Visits Re quested Visits Authorized [id number] Closed 04/19/2024 1 30 Encounter Details Date Type Department Care Team (Late st Contact Info) Description 08/10/2024 11:00 AM CDT Clinical Support [facility] Oncology Services [address] [place] [address] Markus Finley MD [address] [place] [address] Metastatic melanoma (HCC) (Primary Dx); Acute renal [...] 0.6 oz pur e alcohol) [facility] Utilities Answer Date Recorded In [...] How often do you attend judaism or yazidism serv ices? Patient declined 08/01/2024 Do you [...] medical care, and heating? Patient declined 08/01/2024 [place] of Occupat ional [facility] - Occupational Stress Questionnaire Answer Date Recorded [...] in the past 12 m [facility], were you homeless or living [...] st Contact Info) Description 11/15/2024 1:00 PM OIL WELL FISHING TOOL OPERATOR Lab [facility] Laboratory Services [address] [place] [address] Markus Finley MD [address] [place] [address] 11/15/2024 2:00 PM OIL WELL FISHING TOOL OPERATOR Appointment [facility] MRI 1 [place] [address] Markus Finley MD [address] [place] [address] Discharge Disposition: Discharged to home or Selfcare [...] - 12.00 10(3)/mcL 08/10/2024 11:34 AM CDT [facility] RBC 3.93 3.80 - 5.30 10(6)/mcL 08/10/2024 11:34 AM CDT [facility] HEMOGLOBIN (HGB) 11.8(L) 12.0 - 15.8 g/dL 08/10/2024 11:34 AM CDT [facility] HEMATOCRIT (HCT) 34.3(L) 36.0 - 47.0 % 08/10/2024 11:34 AM CDT [facility] MCV 87.3 82.0 - 96.0 fL 08/10/2024 11:34 AM CDT [facility] MCH 30.0 26.0 - 34.0 pg 08/10/2024 11:34 AM CDT [facility] MCHC 34.4 31.0 - 36.0 g/dL 08/10/2024 11:34 AM CDT [facility] PLATELET COUNT 213 140 - 440 10(3)/mcL 08/10/2024 11:34 AM CDT [facility] RDW 14.4 11.8 - 15.5 % 08/10/2024 11:34 AM CDT [facility] MPV 9.3(L) 9.7 - 12.4 fL 08/10/2024 11:34 AM CDT [facility] NEUTROPHILS 90.0(H) 47.0 - 73.0 % 08/10/2024 11:34 AM CDT [facility] LYMPHOCYTES 5.2(L) 18.0 - 42.0 % 08/10/2024 11:34 AM CDT [facility] MONOCYTES 4.7 4.0 - 12.0 % 08/10/2024 11:34 AM CDT [facility] EOSINOPHILS 0.0 0.0 - 5.0 % 08/10/2024 11:34 AM CDT [facility] BASOPHILS 0.1 0.0 - 1.0 % 08/10/2024 11:34 AM CDT [facility] ABSOLUTE NEUTROPHILS 10.39(H) 1.60 - 7.70 10(3)/[facility] 08/10/2024 11:34 AM CDT [facility] ABSOLUTE LYMPHOCYTES 0.60(L) 1.30 - 3.20 10(3)/[facility] 08/10/2024 11:34 AM CDT [facility] ABSOLUTE MONOCYTES 0.54 0.20 - 1.00 10(3)/[facility] 08/10/2024 11:34 AM CDT [facility] ABSOLUTE EOSINOPHIL 0.00 0.00 - 0.40 10(3)/[facility] 08/10/2024 11:34 AM CDT [facility] ABSOLUTE BASOPHILS 0.01 0.00 - 0.10 10(3)/[facility] 08/10/2024 11:34 AM CDT [facility] NRBC PER 100 WBC 0 08/10/20 24 11:34 AM [facility] Blood Sub-Q Port Venou s Access Device (Medi-Port, Implanted Port) / Unknown 08/10/2024 11:20 AM CDT 08/10/2024 11:20 AM CDT us Lee Lan MD HEMATOLOGY ORDERABLES Fi nal Result [facility] [address] [place] [address] * (ABNORMAL) BASIC METABOLIC PANEL W/ CALCIUM TOTAL (08/10/2024 11:20 AM CDT) SODIUM 133(L) 136 - 145 mmol/L 08/10/2024 11:56 AM CDT [facility] POTASSIUM 3.9 3.5 - 5.1 mmol/L 08/10/2024 11:56 AM CDT [facility] CHLORIDE 105 98 - 107 mmol/L 08/10/2024 11:56 AM CDT [facility] CO2, VENOUS 23 22 - 30 mmol/L 08/10/2024 11:56 AM CDT [facility] ANION GAP 8.9 <18.0 mmol/L 08/10/2024 11:56 AM CDT [facility] GLUCOSE 138(H) 70 - 99 mg/dL 08/10/2024 11:56 AM CDT [facility] BUN 15 5 - 18 mg/dL 08/10/2024 11:56 AM CDT [facility] CREATININE, BLOOD 0.86 0.60 - 1.00 mg/dL 08/10/2024 11:56 AM CDT [facility] BUN/CREATININE RATIO 17 12 - 20 ratio 08/10/2024 11:56 AM CDT [facility] CALCIUM 8.9 8.7 - 10.5 mg/dL 08/10/2024 11:56 AM CDT [facility] GFR, ESTIMATED >60 >=60 08/10/2024 11:56 AM CDT [facility] Comment: Creatinine Clearance is the preferred criteria for selecting drug dose adjustments in renally impaired patients. ??The GFR is provided as additional pertinent clinical information. GFR is reported in mL/min/1.73 sq m. Calculation based on the Chronic Kidney Disease Epidemiology Collaboration (CKD- EPI) equation refit without adjustment for race. GFR, EST. >60 >=60 024 11:56 AM CDT [facility] GFR, EST. NONAFRICAN >60 >=60 08/10/2024 11:56 AM CDT [facility] Blood Sub-Q Port Venou s Access Device (Medi-Port, Implanted Port) / Unknown 08/10/2024 11:20 AM CDT 08/10/2024 11:20 AM CDT us Lee Lan MD CHEMISTRY ORDERABLES Fin al Result [facility] [address] [place] [address] documented in this encounter Visit Diagnoses Diagnosis [...] Units documented in this encounter Care Teams Roll Setter Relationship Specialty Start Date End Date Pritesh Chu MD [address] [address] PCP - General Family Medicine 04/18/24 Markus Finley MD [address] [place] [address] Consulting Physician Medical Oncology 04/18/24 documented as of this encounter
--- OUTSIDE RECORDS SUMMARY | 2024-10-26 10:54 | XMS_ITS | Encounter Summary ---
Author Organization [facility] Address [address] [place] [address] Phone Care Team Providers Care Information Technology Security Analyst Name Role Phone Pritesh Chu MD Primary Care Provider [phone] Markus Finley MD Unavailable [phone] Reason for Visit * Episode Based Medications (Routine) - Closed Specialty Diagnoses / Procedures Referred By Contross t Referred To Contact Diagnoses Metastatic melanoma (HCC) Markus Finley MD [address] [place] [address] Phone: tel: fax: [facility] Oncology Services [address] [place] [address] Phone: tel: fax: Referral ID Status Reason Start Date Expiration Date Visits Re quested Visits Authorized [id number] Closed 04/19/2024 1 30 Encounter Details Date Type Department Care Team (Late st Contact Info) Description 08/08/2024 11:30 AM CDT Clinical Support [facility] Oncology Services [address] [place] [address] Markus Finley MD [address] [place] [address] Metastatic melanoma (HCC) Discharge Disposition: Discharged to home or Selfcare Social History Tobacco Use Types Packs/Day Years Used Date Smoking Tobacco: Former Cigarettes 0.5 8.5 S tarted: 04/18/2016 Smokeless Tobacco: Never Alcohol Use Standard Drinks/Week Comments Yes 0 (1 standard drink = 0.6 oz pur e alcohol) [facility] Utilities Answer Date Recorded In [...] How often do you attend druze or mormon serv ices? Patient declined 08/01/2024 [...] medical care, and heating? Patient declined 08/01/2024 [facility] [place] of Occupat ional Health - Occupational Stress [...] st Contact Info) Description 11/15/2024 1:00 PM FRAME POLISHER [facility] [address] [place] [address] Markus Finley MD [address] [place] [address] 11/15/2024 2:00 PM FRAME POLISHER [facility] [address] [place] [address] Markus Finley MD [address] [place] [address] Discharge Disposition: Discharged to home or Selfcare documented as of this encounter Procedures Procedure Name Priority Date/Time Associated Diagnosis Comments CMP (COMPREHENSIVE METABOLIC PANEL) STAT 08/08/2024 12:00 PM CDT Metastatic melanoma (HCC) documented in this encounter Results * (ABNORMAL) CMP (COMPREHENSIVE METABOLIC PANEL) (08/08/2024 12:00 PM CDT) SODIUM 133(L) 136 - 145 mmol/L 08/08/2024 12:40 PM CDT [facility] POTASSIUM 3.6 3.5 - 5.1 mmol/L 08/08/2024 12:40 PM CDT [facility] CHLORIDE 108(H) 98 - 107 mmol/L 08/08/2024 12:40 PM CDT [facility] CO2, VENOUS 20(L) 22 - 30 mmol/L 08/08/2024 12:40 PM CDT [facility] ANION GAP 8.6 <18.0 mmol/L 08/08/2024 12:40 PM CDT [facility] GLUCOSE 143(H) 70 - 99 mg/dL 08/08/2024 12:40 PM CDT [facility] BUN 12 5 - 18 mg/dL 08/08/2024 12:40 PM CDT [facility] CREATININE, BLOOD 1.00 0.60 - 1.00 mg/dL 08/08/2024 12:40 PM CDT [facility] BUN/CREATININE RATIO 12 12 - 20 ratio 08/08/2024 12:40 PM CDT [facility] TOTAL PROTEIN 6.0(L) 6.3 - 8.2 g/dL 08/08/2024 12:40 PM CDT [facility] ALBUMIN 3.4(L) 3.5 - 5.0 g/dL 08/08/2024 12:40 PM CDT [facility] A/G RATIO 1.3 1.0 - 2.2 08/08/2024 12:40 PM CDT [facility] CALCIUM 8.8 8.7 - 10.5 mg/dL 08/08/2024 12:40 PM CDT [facility] T BILI 0.5 0.2 - 1.2 mg/dL 08/08/2024 12:40 PM CDT [facility] SGOT (AST) 15 5 - 34 U/L 08/08/2024 12:40 PM CDT [facility] SGPT (ALT) 58(H) 0 - 55 U/L 08/08/2024 12:40 PM CDT [facility] ALKALINE PHOSPHATASE 71 40 - 150 U/L 08/08/2024 12:40 PM CDT [facility] IS THE PATIENT REQUIRED TO BE FASTING? No 08/08/2024 12:40 PM CDT [facility] GFR, ESTIMATED >60 >=60 08/08/2024 12:40 PM CDT [facility] Comment: Creatinine Clearance is the preferred criteria for selecting drug dose adjustments in renally impaired patients. ??The GFR is provided as additional pertinent clinical information. GFR is reported in mL/min/1.73 sq m. Calculation based on the Chronic Kidney Disease Epidemiology Collaboration (CKD- EPI) equation refit without adjustment for race. GFR, EST. >60 >=60 024 12:40 PM CDT [facility] GFR, EST. NONAFRICAN >60 >=60 08/08/2024 12:40 PM CDT [facility] Blood Sub-Q Port Venou s Access Device (Medi-Port, Implanted Port) / Unknown 08/08/2024 12:00 PM CDT 08/08/2024 12:00 PM CDT us Markus Finley MD CHEMISTRY ORDERABLES Fin al Result [facility] #[address] [place] [address] documented in this encounter Visit Diagnoses Diagnosis [...] mL/hr documented in this encounter Care Teams Information Technology Security Analyst Relationship Specialty Start Date End Date Pritesh Chu MD [address] [place] [address] PCP - General Family Medicine 04/18/24 Markus Finley MD [address] [place] [address] Consulting Physician Medical Oncology 04/18/24 documented as of this encounter
--- OUTSIDE RECORDS SUMMARY | 2024-10-26 10:54 | XMS_ITS | Encounter Summary ---
Author Organization [facility] Address [address] [place] [address] Phone Care Team Providers Care Radiology Ct Technologist Name Role Phone Kellen Chu MD Primary Care Provider [phone] Markus Finley MD Unavailable [phone] Reason for Visit * Reason Comments Dehydration * Auth/Cert (Routine) Specialty Diagnoses / Procedures Referred By Contross t Referred To Contact Diagnoses Acute renal failure, unspecified acute renal failure type (HCC) Diarrhea, unspecified type Nausea and vomiting, unspecified vomiting type Lee Lan MD [address] [place] [address] Phone: tel: fax: Referral ID Status Reason Start Date Expiration Date Visits Re quested Visits Authorized [id number] 1 1 Encounter Details Date Type Department Care Team (Latest Contact Info) Description 08/01/2024 12:38 PM CDT - 08/03/2024 6:15 PM CDT Hospital Encounter [facility] Med Surg [address] [place] [id number] Graciela Jonas, PAC [address] [place] [address] Gael Morales MD [address] [place] [address] Lee Lan MD [address] [place] [address] Acute renal failure, unspecified acute renal failure type (HCC) Discharge Disposition: Home Health Care [facility] Social History Tobacco Use Types Packs/Day Years Used Date Smoking Tobacco: Former Cigarettes 0.5 8.5 S tarted: 04/18/2016 Smokeless Tobacco: Never Alcohol Use Standard Drinks/Week Comments Yes 0 (1 standard drink = 0.6 oz pur e alcohol) [facility] Utilities Answer Date Recorded In the past 12 months has [employer], gas, oil, or water [email or web address] threatened to shut off services in your home? Patient declined 08/01/2024 Social Connection and Isolation Panel [NHANES] A nswer Date Recorded In a typical week, how many times do you talk on the phone with family, friends, or neighbors? Patient declined 08/01/2024 How often do you get togethe r with friends or relatives? Patient declined 08/01/2024 How often do you attend congregational or pentecostalism serv ices? Patient declined 08/01/2024 [...] medical care, and heating? Patient declined 08/01/2024 [facility] - Occupational [...] any time in the past 12 m [facility], were you homeless or living [...] the original note were not included. [facility] DISCHARGE SUMMARY Name: Dayanara Hilton Age: 24 [...] 1 week(s) [address] [place] [address] [facility] Call in 1 week(s) [address] [facility] [address] Markus Finley MD Medical Oncology, Hematology, Internal Medicine Call in 1 week(s) #1 [facility] [address] Discharge Instructions: Discharge Condition: improved Disposition: [facility] Referral. Face to Face Encounter completed [...] diarrhea secondary to immunotherapy, who presented to [facility] with complaints of intractable nausea and vomiting.Patient [facility] through 9173 intractable nausea vomiting with diarrhea causing dehydration. He was treated with aggressive IV hydration and supplements and discharged home. Patient returned to the ED again for similar symptoms and was hospitalized from 07/25 through 07/30.She was diagnosed with acute renal failure and seen by powerhouse tender. Patient had a negative stool culture as [...] Dr. Finley and was immediately sent to [facility] ED for further evaluation. Laboratory data [...] HGBA1C 5.5 07/24/2024 No results found for: [id number] No results found for: CPK , CPKI , CKMB , CKMBNI , CKMBPOCT , CKMBRELINDX , TROPONINI , POCTRP No results found for: FERRITIN No results found for: FOLATE No results found for: PHARTERIAL , PO2ART , UEB1TUL , CO2ART , O2ART Lab Results Component [...] these medications potassium chloride SA 20 MEQ [id number] Commonly known as: KLORCON M Where to [...] Thank you very much for allowing the [facility] Adult Hospitalist Service to participate in [...] IV fluids normal saline daily via port. 41070 mL 08/03/2024 documented as of this encounter Progress Notes * Urbano Quiñonez MD - 08/03/2024 6:42 AM CDT Nephrology Progress Note [facility] ASSESSMENT: ALEXX-Probably Prerenal and Immunotherapy [...] MD - 08/02/2024 11:12 AM CDT [facility] INPATIENT DAILY PROGRESS NOTE Dayanara Hilton is [...] results found for: PHARTERIAL , PO2ART , LPT6DOD , CO2ART , O2ART No results for [...] LACTICA 1.3 07/23/2024 No results found for: [id number] No results found for: FERRITIN No results found for: GLUCOSEPOCT High Sensitivity Troponin: No results found for: HSTRP No results found for: DDIMER EKG: EKG 12 LEAD Result Date: 07/24/[address] & T wave abnormality, consider lateral ischemia Abnormal ECG No previous ECGs available Confirmed by Emily Hall ([id number]) on 07/24/2024 9:19:48 AM Imaging: No results found. By: Lee Lan MD, 08/02/2024 4:52 PM CDT documented in this encounter H&P Notes * Lee Lan MD - 08/01/2024 2:32 PM CDT [facility] ADMISSION HISTORY & PHYSICAL HPI: Dayanara Hilton is a 24 y.o. female who is known to me from his admission with melanoma of her left foot status post surgery with a skin graft in his undergoing immunotherapy with oncologist Dr. 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 [facility] intractable nausea vomiting with diarrhea causing dehydration. He was treated with aggressive IV hydration and supplements and discharged home. Patient returned to the ED again for similar symptoms and was hospitalized from 07/25 through 07/30.She was diagnosed with acute renal failure and seen by powerhouse tender. Patient had a negative stool culture as [...] results found for: PHARTERIAL , PO2ART , FKX8YKO , CO2ART , O2ART No results found [...] with patient and/or family and/or Power of Roaster Supervisor approximately 16 minutes. Discussed CPR/Intubation/Treatment Goals/Quality of life/Intensity of Care. Patient desires: Full Code VTE Prophylaxis: Lovenox 40mg Q24h Treatment Team: Consulting Physician: Markus Finley MD Thank you very much for allowing the [facility] Adult Hospitalist Service to participate in the care of this patient By: Esteban Mcgovern APRN, CNP, 08/01/2024, 2:32 PM CDT Primary Care Physician: KELLEN CHU MD documented in this encounter Consult Notes * Urbano Quiñonez MD - 08/02/2024 8:19 AM CDTAssociated Order(s): IP CONSULT TO NEPHROLOGY Nephrology Consult [facility] Reason for Consult: @NEPHROCONSULTREASON@ Requesting [...] Patch, 1 Patch, Transdermal, Daily PRN, Esteban Mcgovren APRN, HARISH ondansetron (ZOFRAN-ODT) disintegrating tablet 4 [...] 1 Tablet Oral 4x Daily Esteban Mcgovern, GROUP PRODUCT MANAGER, PAPER REWINDER metroNIDAZOLE (FLAGYL) IV 500 mg 500 mg [...] Session: Patient declined Stress: Patient Declined (07/25/2024) [facility] - Occupational Stress Questionnaire Feeling of Stress : Patient declined Recent Concern: Stress - Stress Concern Present (06/27/2024) [facility] - Occupational Stress Questionnaire Feeling of Stress : To some extent Social Integration: Patient Declined (07/25/2024) Social Connection and Isolation Panel [NHANES] Frequency of Communication with Friends and Family: Patient declined Frequency of Social Gatherings with Friends and Family: Patient declined Attends Caodaism Services: Patient declined Active Member of Clubs [...] More than three times a week Attends Caodaism Services: Never Active Member of Clubs or [...] and steroids. CM discussed this with Oncology interior wall assembler Marie who has scheduled her on Tuesday to get these supplement infusions. Information is on her AVS. Discharge Plan Notification/ Verification Patient's Phone numbers: [phone] (home) Patient's preferred discharge phone number for [...] Luz Cruz - 08/03/2024 11:10 AM CDT Bucket Wash Operator Coordination Note SUMMARY - Bucket Wash Operator currently working the potential transition plan(s): 08/02/2024 [...] all question regarding hospital transition to the Metal Refiner) Readmission risk level (if calculated) is: 3-Medium [...] Ida Contact 08/03/2024 @ 11:10 AM CDT ([facility], ) Text from Ida, they are unable to accommodate pt. Informed CMOlivia via secure chat 08/03/2024 @ 10:13 AM CDT ([facility], ) Text from Ida stating they are reviewing benefits and request. This is done on a case by case basis and she will keep us posted. MORALES Ontiveros aware 08/02/2024 @ 4:15 PM CDT ([facility], ) Referral sent via [employer] fax. Notified Ida via text * Interdisciplinary [...] (compare to working DRG): 1 Reason for Metal RefinerPetroleum Analyst: High Risk for Readmission (High, Medium- High) and Re-hospitalization Dayanara Perez is in the hospital due to: Alexx Prior to Admission (Support, Living Environment,ADLs IADLs, [...] [facility] ([facility]) 08/02/24 Patient/ patient small business representative's preferences regarding the discharge plan: return home [...] Luz Coronado - 08/02/2024 8:29 AM CDT Bucket Wash Operator Coordination Note SUMMARY - Bucket Wash Operator currently working the potential transition plan(s): 08/02/2024 @ 4:15 PM CDT ([facility], ) [facility] [HIP] 08/02/2024 @ 8:29 AM CDT ([facility], ) Follow Up Appointment (See detail within the referral type(s) below for information on what is needed to complete coordination Note - the Transition Specialists do not coordinate all transition types - please direct all question regarding hospital transition to the Metal Refiner) Readmission risk level (if calculated) is: 3-Medium [...] Ida Contact 08/02/2024 @ 4:15 PM CDT ([facility], ) Referral sent via [employer] fax. Notified Ida via text * Interdisciplinary [...] st Contact Info) Description 11/15/2024 1:00 PM FICTION WRITER Lab [facility] [address] [place] [address] Markus Finley MD [address] [place] [address] 11/15/2024 2:00 PM FICTION WRITER Appointment [facility] MRI 1 [place] [address] Markus Finley MD [address] [place] [address] Discharge Disposition: Discharged to home or Selfcare [...] - 145 mmol/L 08/10/2024 11:56 AM CDT [facility] POTASSIUM 3.9 3.5 - 5.1 mmol/L 08/10/2024 11:56 AM CDT [facility] CHLORIDE 105 98 - 107 mmol/L 08/10/2024 11:56 AM CDT [facility] CO2, VENOUS 23 22 - 30 mmol/L 08/10/2024 11:56 AM CDT [facility] ANION GAP 8.9 <18.0 mmol/L 08/10/2024 11:56 AM CDT [facility] GLUCOSE 138(H) 70 - 99 mg/dL 08/10/2024 11:56 AM CDT [facility] BUN 15 5 - 18 mg/dL 08/10/2024 11:56 AM CDT [facility] CREATININE, BLOOD 0.86 0.60 - 1.00 mg/dL 08/10/2024 11:56 AM CDT [facility] BUN/CREATININE RATIO 17 12 - 20 ratio 08/10/2024 11:56 AM CDT [facility] CALCIUM 8.9 8.7 - 10.5 mg/dL 08/10/2024 11:56 AM CDT [facility] GFR, ESTIMATED >60 >=60 08/10/2024 11:56 AM CDT [facility] Comment: Creatinine Clearance is the preferred criteria for selecting drug dose adjustments in renally impaired patients. ??The GFR is provided as additional pertinent clinical information. GFR is reported in mL/min/1.73 sq m. Calculation based on the Chronic Kidney Disease Epidemiology Collaboration (CKD- EPI) equation refit without adjustment for race. GFR, EST. >60 >=60 024 11:56 AM CDT [facility] GFR, EST. NONAFRICAN >60 >=60 08/10/2024 11:56 AM CDT [facility] Blood Sub-Q Port Venou s Access Device (Medi-Port, Implanted Port) / Unknown 08/10/2024 11:20 AM CDT 08/10/2024 11:20 AM CDT Lee Lan MD CHEMISTRY ORDERABLES Fin al Result [facility] [address] [place] [address] * (ABNORMAL) CBC with Auto Differential (08/03/2024 4:32 AM CDT) Only the most recent of2 resultswithin the time period is included. WBC 8.19 4.00 - 12.00 10(3)/mcL 08/03/2024 7:29 AM CDT [facility] RBC 4.01 3.80 - 5.30 10(6)/mcL 08/03/2024 7:29 AM CDT [facility] HEMOGLOBIN (HGB) 12.1 12.0 - 15.8 g/dL 08/03/2024 7:29 AM CDT [facility] HEMATOCRIT (HCT) 35.4(L) 36.0 - 47.0 % 08/03/2024 7:29 AM CDT [facility] MCV 88.3 82.0 - 96.0 fL 08/03/2024 7:29 AM CDT [facility] MCH 30.2 26.0 - 34.0 pg 08/03/2024 7:29 AM CDT [facility] MCHC 34.2 31.0 - 36.0 g/dL 08/03/2024 7:29 AM CDT [facility] PLATELET COUNT 225 140 - 440 10(3)/[facility] 08/03/2024 7:29 AM CDT [facility] RDW 13.7 11.8 - 15.5 % 08/03/2024 7:29 AM CDT [facility] MPV 10.2 9.7 - 12.4 fL 08/03/2024 7:29 AM CDT [facility] NEUTROPHILS 90.3(H) 47.0 - 73.0 % 08/03/2024 7:29 AM CDT [facility] LYMPHOCYTES 4.8(L) 18.0 - 42.0 % 08/03/2024 7:29 AM CDT [facility] MONOCYTES 4.8 4.0 - 12.0 % 08/03/2024 7:29 AM CDT [facility] EOSINOPHILS 0.0 0.0 - 5.0 % 08/03/2024 7:29 AM CDT [facility] BASOPHILS 0.1 0.0 - 1.0 % 08/03/2024 7:29 AM CDT [facility] ABSOLUTE NEUTROPHILS 7.40 1.60 - 7.70 10(3)/[facility] 08/03/2024 7:29 AM CDT [facility] ABSOLUTE LYMPHOCYTES 0.39(L) 1.30 - 3.20 10(3)/[facility] 08/03/2024 7:29 AM CDT [facility] ABSOLUTE MONOCYTES 0.39 0.20 - 1.00 10(3)/[facility] 08/03/2024 7:29 AM CDT [facility] ABSOLUTE EOSINOPHIL 0.00 0.00 - 0.40 10(3)/[facility] 08/03/2024 7:29 AM CDT [facility] ABSOLUTE BASOPHILS 0.01 0.00 - 0.10 10(3)/mcL 08/03/2024 7:29 AM CDT [facility] NRBC PER 100 WBC 0 08/03/20 7:29 AM CDT [facility] RESULTS ARE CONSISTENT WITH PERIPHERAL SMEAR REVIEW Yes 08/03/2024 7:29 AM CDT [facility] RBC MORPHOLOGY CONSISTENT WITH INDICES Yes 08/03/2024 7:29 AM CDT [facility] Blood Venipuncture / Unknown 08/03/2024 4:32 AM CDT 08/03/2024 6:29 AM CDT Esteban Mcgovern GROUP PRODUCT MANAGER, PAPER REWINDER HEMATOLOGY ORDERABLES F inal Result Performing Organization Address City/[facility]/ZIP Co de Phone Number [facility] [address] [place] [address] * THYROXINE (T4) FREE (08/03/2024 4:32 AM CDT) T4 FREE 0.7 0.7 - 1.9 ng/dL 08/03/2024 7:20 AM CDT [facility] Blood Venipuncture / Unknown 08/03/2024 4:32 AM CDT 08/03/2024 6:28 AM CDT us Urbano Quiñonez MD CHEMISTRY ORDERABLES Final Result [facility] [address] [place] [address] * Triiodothyrinine (T3) Free (08/03/2024 4:32 AM CDT) FREE T3 1.6 1.6 - 3.9 pg/mL 08/03/2024 4:08 PM CDT [facility] Blood Venipuncture / Unknown 08/03/2024 4:32 AM CDT 08/03/2024 6:28 AM CDT Urbano Quiñonez MD CHEMISTRY ORDERABLES Final Result [facility] [address] [place] [address], [place] * RHYTHM STRIP (08/03/2024 12:00 AM CDT) Only the most recent of6 resultswithin the time period is included. 08/03/2024 us Provider Scan IMG ECG ORDERABLES Final Result Performing Organization Address City/[facility]/ZIP Co de Phone Number RESULTING AGENCY * C. DIFF BY PCR (08/01/2024 7:08 PM CDT) C DIFF TOXIN DNA BY PCR Negative Negative, Invalid 08/01/2024 7:56 PM CDT [facility] Other STOOL SPECIMEN / Unknown Non-Phlebotomy Collection / Unknown 08/01/2024 7:08 PM CDT 08/01/2024 7:08 PM CDT Gael Morales MD MICROBIOLOGY - GENERAL ORD ERABLES Final Result Performing Organization Address City/[facility]/ZIP Co de Phone Number [facility] [address] [place] [address] * Blood Culture #2 (08/01/2024 3:48 PM CDT) Only the most recent of2 resultswithin the time period is included. CULTURE RESULTS NO GROWTH WITHIN 5 DAYS, FINAL RESULT 08/06/2024 5:01 PM CDT [facility] Culture BLOOD SPECIMEN / Unknown Venipuncture / Unknown 08/01/2024 3:48 PM CDT 08/01/2024 4:10 PM CDT Gael Morales MD MICROBIOLOGY - GENERAL ORD ERABLES Final Result [facility] [address] [place] [address], [place] * XR CHEST SINGLE VIEW PORTABLE [...] PM T: ??08/01/2024 2:59 PM Report ID: [id number] Reading Location: ??[id number] Procedure Note Nisreen Lara MD - 08/01/2024 [...] Nisreen Esteban M.D. FT: FT Report ID: [id number] Reading Location: [id number] IMPRESSION: No acute cardiopulmonary abnormality. Result [facility] Gael Morales MD IMG DIAGNOSTIC ORDERABLES Final [...] ?Care discussed with: admitting provider ?? Result [facility] Gael Morales MD PROCEDURE/MINOR SURGICAL O RDERABLES Final Result * RACHID MUIR HEPARIN/SST TOP TUBE (08/01/2024 1:30 PM CDT) Blood No Phlebotomy Charged / Unknown 08/01/2024 1:30 PM CDT 08/01/2024 1:30 PM CDT Result [facility] Gael Morales MD HEMATOLOGY ORDERABLES Susan l Result [facility] [address] [place] [address] * Lavender Top Tube (08/01/2024 1:30 PM CDT) Blood No Phlebotomy Charged / Unknown 08/01/2024 1:30 PM CDT 08/01/2024 1:30 PM CDT Gael Morales MD HEMATOLOGY ORDERABLES Susan l Result Performing Organization Address City/[facility]/ZIP Co de Phone Number [facility] [address] [place] [address] * Gold Top Tube (08/01/2024 1:30 PM CDT) Blood No Phlebotomy Charged / Unknown 08/01/2024 1:30 PM CDT 08/01/2024 1:30 PM CDT Gael Morales MD CHEMISTRY ORDERABLES Final Result Performing Organization Address City/[facility] Co de Phone Number [facility] [address] [place] [address] * Blue Top Tube (08/01/2024 1:30 PM CDT) Blood No Phlebotomy Charged / Unknown 08/01/2024 1:30 PM CDT 08/01/2024 1:30 PM CDT Gael Morales MD HEMATOLOGY ORDERABLES Susan l Result Performing Organization Address City/[facility]/ZIP Co de Phone Number [facility] [address] [place] [address] documented in this encounter Visit Diagnoses Diagnosis [...] 08/02/2024 11:27 PM CDT 150 mL/hr [facility] 08/02/2024 4:34 PM CDT 150 mL/hr [facility] 08/02/2024 9:47 AM CDT 150 mL/hr acetaminophen [...] Provider: Bill Malagon RN)[id number] (Paused - Provider: Blil Malagon RN) 0318 (Stopped - Provider: Sussy [...] documented as of this encounter Care Teams Radiology Ct Technologist Relationship Specialty Start Date End Date Kellen Chu MD [address] [address] PCP - General Family Medicine 04/18/24 Markus Finley MD [address] [place] [address] Consulting Physician Medical Oncology 04/18/24 documented as of this encounter
--- OUTSIDE RECORDS SUMMARY | 2024-10-26 10:54 | XMS_ITS | Encounter Summary ---
Author Organization [facility] Care Team Providers Care Receiving Associate Name Role Phone Pritesh Chu MD Primary Care Provider [phone] Markus Finley MD Unavailable [phone] Encounter Details Date Type Department Care Team (Latest Contact Info) Description 08/20/2024 Travel Social History Tobacco Use Types Packs/Day Years Used Date Smoking Tobacco: Former Cigarettes 0.5 8.5 S tarted: 04/18/2016 Smokeless Tobacco: Never Alcohol Use Standard Drinks/Week Comments Yes 0 (1 standard drink = 0.6 oz pur e alcohol) [facility] Utilities Answer Date Recorded In the past 12 months has [employer], gas, oil, or water [employer] threatened to shut off services in your home? Patient declined 08/01/2024 Social Connection and Isolation Panel [NHANES] A nswer Date Recorded In a typical week, how many times do you talk on the phone with family, friends, or neighbors? Patient declined 08/01/2024 How often do you get togethe r with friends or relatives? Patient declined 08/01/2024 How often do you attend tenriism or yarsani serv ices? Patient declined 08/01/2024 Do you [...] care, and heating? Patient declined 08/01/2024 [facility] ional [facility] - Occupational Stress [...] st Contact Info) Description 11/15/2024 1:00 PM NURSING STUDENT Lab [facility] [address] [place] [address] Markus Finley MD [address] [place] [address] 11/15/2024 2:00 PM NURSING STUDENT Appointment [facility] [address] [place] [address] Markus Finley MD [address] [place] [address] Discharge Disposition: Discharged to home or Selfcare documented as of this encounter Visit Diagnoses Not on filedocumented in this encounter Care Teams Receiving Associate Relationship Specialty Start Date End Date Pritesh Chu MD [address] [place] [address] PCP - General Family Medicine 04/18/24 Markus Finley MD [address] [place] [address] Consulting Physician Medical Oncology 04/18/24 documented as of this encounter
--- OUTSIDE RECORDS SUMMARY | 2024-10-26 10:54 | XMS_ITS | Encounter Summary ---
Author Organization [facility] Address [address] [facility] [place] [address] Phone Care Team Providers Care Statement Request Clerk Name Role Phone Pritesh Chu MD Primary Care Provider [phone] Markus Finley MD Unavailable Encounter Details Date Type Department Care Team (Late st Contact Info) Description 08/01/2024 10:30 AM CDT Clinical Support [facility] Oncology Services [address] [place] [phone] Markus Finley MD [address] [place] [address] Diarrhea due to drug (Primary Dx); Metastatic [...] Recorded In the past 12 months has [employer], [employer], or [employer] threatened to shut off services in your home? Patient declined 08/01/2024 Social Connection and Isolation Panel [NHANES] A nswer Date Recorded In a typical week, how many times do you talk on the phone with family, friends, or neighbors? Patient declined 08/01/2024 How often do you get togethe r with friends or relatives? Patient declined 08/01/2024 How often do you attend yarsanism or pentecostal serv ices? Patient declined 08/01/2024 [...] declined 08/01/2024 [facility] - Occupational [...] a jail (including now)? Patient declined 08/01/2024 Comments No [...] CDT Updated [facility] order with specimen from [facility] in 08/2023. documented in this encounter Plan of Treatment Upcoming Encounters Date Type Department Care Team (Late st Contact Info) Description 11/15/2024 1:00 PM COMPUTER APPLICATIONS INSTRUCTOR Lab [facility] Laboratory Services [address] [place] [address] Markus Finley MD [address] [place] [address] 11/15/2024 2:00 PM COMPUTER APPLICATIONS INSTRUCTOR Appointment [facility] MRI [address] [place] [address] Markus Finley MD [address] [place] [address] Discharge Disposition: Discharged to home or Selfcare [...] AUTO DIFFERENTIAL (08/01/2024 11:05 AM CDT) Pathologist [facility] WBC 17.32(H) 4.00 - 12.00 10(3)/mcL 08/01/2024 11:18 AM CDT [facility] RBC 6.09(H) 3.80 - 5.30 10(6)/mcL 08/01/2024 11:18 AM CDT [facility] HEMOGLOBIN (HGB) 18.0(H) 12.0 - 15.8 g/dL 08/01/2024 11:18 AM CDT [facility] HEMATOCRIT (HCT) 51.2(H) 36.0 - 47.0 % 08/01/2024 11:18 AM CDT [facility] MCV 84.1 82.0 - 96.0 fL 08/01/2024 11:18 AM CDT [facility] MCH 29.6 26.0 - 34.0 pg 08/01/2024 11:18 AM CDT [facility] MCHC 35.2 31.0 - 36.0 g/dL 08/01/2024 11:18 AM CDT [facility] PLATELET COUNT 472(H) 140 - 440 10(3)/mcL 08/01/2024 11:18 AM CDT [facility] RDW 13.8 11.8 - 15.5 % 08/01/2024 11:18 AM CDT [facility] MPV 9.8 9.7 - 12.4 fL 08/01/2024 11:18 AM CDT [facility] NEUTROPHILS 86.8(H) 47.0 - 73.0 % 08/01/2024 11:18 AM CDT [facility] LYMPHOCYTES 8.5(L) 18.0 - 42.0 % 08/01/2024 11:18 AM CDT [facility] MONOCYTES 4.0 4.0 - 12.0 % 08/01/2024 11:18 AM CDT [facility] EOSINOPHILS 0.1 0.0 - 5.0 % 08/01/2024 11:18 AM CDT [facility] BASOPHILS 0.6 0.0 - 1.0 % 08/01/2024 11:18 AM CDT [facility] ABSOLUTE NEUTROPHILS 15.03(H) 1.60 - 7.70 10(3)/[facility] 08/01/2024 11:18 AM CDT [facility] ABSOLUTE LYMPHOCYTES 1.47 1.30 - 3.20 10(3)/[facility] 08/01/2024 11:18 AM CDT [facility] ABSOLUTE MONOCYTES 0.70 0.20 - 1.00 10(3)/[facility] 08/01/2024 11:18 AM CDT [facility] ABSOLUTE EOSINOPHIL 0.01 0.00 - 0.40 10(3)/[facility] 08/01/2024 11:18 AM CDT [facility] ABSOLUTE BASOPHILS 0.11(H) 0.00 - 0.10 10(3)/[facility] 08/01/2024 11:18 AM CDT [facility] NRBC PER 100 WBC 0 08/01/20 11:18 AM CDT [facility] Blood Venipuncture / Unknown 08/01/2024 11:05 AM CDT 08/01/2024 11:05 AM CDT us Markus Finley MD HEMATOLOGY ORDERABLES Fi nal Result [facility] [address] [place] [address] * (ABNORMAL) THYROID STIMULATING HORMONE (TSH) (08/01/2024 11:05 AM CDT) [facility] TSH 114.336(H) 0.300 - 5.000 mIU/L 08/01/2024 12:49 PM CDT [facility] Blood Venipuncture / Unknown 08/01/2024 11:05 AM CDT 08/01/2024 11:05 AM CDT Markus Finley MD CHEMISTRY ORDERABLES Fin al Result [facility] [address] [place] [address] * (ABNORMAL) CMP (COMPREHENSIVE METABOLIC PANEL) (08/01/2024 11:05 AM CDT) [facility] SODIUM 127(L) 136 - 145 mmol/L 08/01/2024 12:10 PM CDT [facility] POTASSIUM 3.3(L) 3.5 - 5.1 mmol/L 08/01/2024 12:10 PM CDT [facility] CHLORIDE 91(L) 98 - 107 mmol/L 08/01/2024 12:10 PM CDT [facility] CO2, VENOUS 15(L) 22 - 30 mmol/L 08/01/2024 12:10 PM CDT [facility] ANION GAP 24.3(H) <18.0 mmol/L 08/01/2024 12:10 PM CDT [facility] GLUCOSE 157(H) 70 - 99 mg/dL 08/01/2024 12:10 PM CDT [facility] BUN 29(H) 5 - 18 mg/dL 08/01/2024 12:10 PM CDT [facility] CREATININE, BLOOD 4.24(H) 0.60 - 1.00 mg/dL 08/01/2024 12:10 PM CDT [facility] BUN/CREATININE RATIO 7(L) 12 - 20 ratio 08/01/2024 12:10 PM CDT [facility] TOTAL PROTEIN 9.0(H) 6.3 - 8.2 g/dL 08/01/2024 12:10 PM T [facility] ALBUMIN 4.7 3.5 - 5.0 g/dL 08/01/2024 12:10 PM [facility] A/G RATIO 1.1 1.0 - 2.2 08/01/2024 12:10 PM T [facility] CALCIUM 10.6(H) 8.7 - 10.5 mg/dL 08/01/2024 12:10 PM CDT [facility] T BILI 0.7 0.2 - 1.2 mg/dL 08/01/2024 12:10 PM CDT [facility] SGOT (AST) 22 5 - 34 U/L 08/01/2024 12:10 PM [facility] SGPT (ALT) 53 0 - 55 U/L 08/01/2024 12:10 PM [facility] ALKALINE PHOSPHATASE 85 40 - 150 U/L 08/01/2024 12:10 PM [facility] IS THE PATIENT REQUIRED TO BE FASTING? No 08/01/2024 12:10 PM T [facility] GFR, ESTIMATED 14(L) >=60 08/01/2024 12:10 PM [facility] Comment: Creatinine Clearance is the preferred criteria for selecting drug dose adjustments in renally impaired patients. ??The GFR is provided as additional pertinent clinical information. GFR is reported in mL/min/1.73 sq m. Calculation based on the Chronic Kidney Disease Epidemiology Collaboration (CKD- EPI) equation refit without adjustment for race. GFR, EST. 16(L) >=60 024 12:10 PM [facility] GFR, EST. NONAFRICAN 13(L) >=60 08/01/2024 12:10 PM [facility] Blood Venipuncture / Unknown 08/01/2024 11:05 AM CDT 08/01/2024 11:05 AM CDT Markus Finley MD CHEMISTRY ORDERABLES Fin al Result [facility] [address] [place] [address] * (ABNORMAL) MAGNESIUM (MG) (08/01/2024 11:05 AM CDT) MAGNESIUM 2.7(H) 1.6 - 2.6 mg/dL 08/01/2024 12:10 PM CDT [facility] Blood Venipuncture / Unknown 08/01/2024 11:05 AM CDT 08/01/2024 11:05 AM CDT Markus Finley MD CHEMISTRY ORDERABLES Fin al Result Performing Organization Address City/[facility] Co de Phone Number [facility] [address] [place] [address] documented in this encounter Visit Diagnoses Diagnosis [...] documented as of this encounter Care Teams Statement Request Clerk Relationship Specialty Start Date End Date Pritesh Chu MD [address] [place] [address] PCP - General Family Medicine 04/18/24 Markus Finley MD [address] [place] [address] Consulting Physician Medical Oncology 04/18/24 documented as of this encounter
--- OUTSIDE RECORDS SUMMARY | 2024-10-26 10:54 | XMS_ITS | Encounter Summary ---
Author Organization [facility] Address [address] [facility] [place] [address] Phone Care Team Providers Care Project Manager Finance Name Role Phone Pritesh Chu MD Primary Care Provider Markus Finley MD Unavailable [phone] Encounter Details Date Type Department Care Team (Late st Contact Info) Description 08/06/2024 11:30 AM CDT Clinical Support [facility] Oncology Services [address] [place] [phone] Markus Finley MD [address] [place] [address] Diarrhea due to drug (Primary Dx); Metastatic melanoma (HCC) Discharge Disposition: Discharged to home or Selfcare Social History Tobacco Use Types Packs/Day Years Used Date Smoking Tobacco: Former Cigarettes 0.5 8.5 S tarted: 04/18/2016 Smokeless Tobacco: Never Alcohol Use Standard Drinks/Week Comments Yes 0 (1 standard drink = 0.6 oz pur e alcohol) [facility] Utilities Answer Date Recorded In the past 12 months has [employer], [employer], or [employer] threatened to shut off services in your home? Patient declined 08/01/2024 Social Connection and Isolation Panel [NHANES] A nswer Date Recorded In a typical week, how many times do you talk on the phone with family, friends, or neighbors? Patient declined 08/01/2024 How often do you get togethe r with friends or relatives? Patient declined 08/01/2024 How often do you attend rastafarian or yazidi serv ices? Patient declined 08/01/2024 Do you belong to any clubs o r organizations such as rastafarian groups, unions, fraternal or athletic groups, or [...] medical care, and heating? Patient declined 08/01/2024 [facility] [...] any time in the past 12 m [facility], were you homeless or living in a skilled nursing (including now)? Patient declined 08/01/2024 Comments No [...] st Contact Info) Description 11/15/2024 1:00 PM PLACING JUDGE Lab [facility] Laboratory Services [address] [place] [address] Markus Finley MD [address] [place] [address] 11/15/2024 2:00 PM PLACING JUDGE [facility]ointment [facility] 1 [place] [phone] Markus Finley MD [address] [place] [address] Discharge Disposition: Discharged to home or Selfcare documented as of this encounter Procedures Procedure Name Priority Date/Time Associated Diagnosis Comments CMP (COMPREHENSIVE METABOLIC PANEL) STAT 08/06/2024 1:13 PM CDT documented in this encounter Results * (ABNORMAL) CMP (Comprehensive Metabolic Panel) (08/06/2024 1:13 PM CDT) SODIUM 129(L) 136 - 145 mmol/L 08/06/2024 1:[address] [facility] POTASSIUM 3.7 3.5 - 5.1 mmol/L 08/06/2024 1:[address] CHLORIDE 106 98 - 107 mmol/L 08/06/2024 1:[address] CO2, VENOUS 16(L) 22 - 30 mmol/L 08/06/2024 1:[address] ANION GAP 10.7 <18.0 mmol/L 08/06/2024 1:[address] GLUCOSE 155(H) 70 - 99 mg/dL 08/06/2024 1:[address] BUN 14 5 - 18 mg/dL 08/06/2024 1:[address] CREATININE, BLOOD 1.15(H) 0.60 - 1.00 mg/dL 08/06/2024 1:[address] BUN/CREATININE RATIO 12 12 - 20 ratio 08/06/2024 1:[address] TOTAL PROTEIN 6.3 6.3 - 8.2 g/dL 08/06/2024 1:36 PM CDT [facility] ALBUMIN 3.5 3.5 - 5.0 g/dL 08/06/2024 1:[address] A/G RATIO 1.3 1.0 - 2.2 08/06/2024 1:[address] CALCIUM 9.0 8.7 - 10.5 mg/dL 08/06/2024 1:[address] T BILI 0.4 0.2 - 1.2 mg/dL 08/06/2024 1:[address] SGOT (AST) 19 5 - 34 U/L 08/06/2024 1:[address] SGPT (ALT) 51 0 - 55 U/L 08/06/2024 1:[address] ALKALINE PHOSPHATASE 66 40 - 150 U/L 08/06/2024 1:[address] GFR, ESTIMATED >60 >=60 08/06/2024 1:[address] [...] EST. >60 >=60 024 1:[address] GFR, EST. NONAFRICAN 58(L) >=60 08/06/2024 1:[address] Blood Sub-Q Port Venou s Access Device (Medi-Port, Implanted Port) / Unknown 08/06/2024 1:13 PM CDT 08/06/2024 1:13 PM CDT us Markus Finley MD CHEMISTRY ORDERABLES Fin al Result [facility] [facility] [place] [address] documented in this encounter Visit Diagnoses Diagnosis [...] Units documented in this encounter Care Teams Project Manager Finance Relationship Specialty Start Date End Date Pritesh Chu MD [address] [place] [address] PCP - General Family Medicine 04/18/24 Markus Finley MD [address] [place] [address] Consulting Physician Medical Oncology 04/18/24 documented as of this encounter
--- OUTSIDE RECORDS SUMMARY | 2024-10-26 10:54 | XMS_ITS | Encounter Summary ---
Author Organization [employer] Care Team Providers Care Automotive Sales Professional Name Role Phone Pritesh Chu MD Primary Care Provider [phone] Markus Finley MD Unavailable [phone] Encounter Details Date Type Department Care Team [...] Recorded In the past 12 months has [employer], gas, oil, or water [employer] threatened to shut off services in your home? Patient declined 08/01/2024 Social Connection and Isolation Panel [NHANES] A nswer Date Recorded In a typical week, how many times do you talk on the phone with family, friends, or neighbors? Patient declined 08/01/2024 How often do you get togethe r with friends or relatives? Patient declined 08/01/2024 How often do you attend mormonism or episcopal serv ices? Patient declined 08/01/2024 Do you [...] declined 08/01/2024 [facility] - Occupational Stress Questionnaire Answer Date [...] st Contact Info) Description 11/15/2024 1:00 PM CARPET JOURNEYMAN Lab [facility] [address] [place] [address] Markus Finley MD [address] [place] [address] 11/15/2024 2:00 PM CARPET JOURNEYMAN [facility]ment [facility] [address] [place] [address] Markus Finley MD [address] [place] [address] Discharge Disposition: Discharged to home or Selfcare documented as of this encounter Visit Diagnoses Not on filedocumented in this encounter Care Teams Automotive Sales Professional Relationship Specialty Start Date End Date Pritesh Chu MD [address] [address] PCP - General Family Medicine 04/18/24 Markus Finley MD [address] [place] [address] Consulting Physician Medical Oncology 04/18/24 documented as of this encounter
--- OUTSIDE RECORDS SUMMARY | 2024-10-26 10:54 | XMS_ITS | Encounter Summary ---
Author Organization [facility] Address [address] [facility] [place] [address] Phone Care Team Providers Care Car Rental Agency Manager Name Role Phone Pritesh Chu MD Primary Care Provider [phone] Markus Finley MD Unavailable [phone] Encounter Details Date Type Department Care Team (Late st Contact Info) Description 08/13/2024 11:30 AM CDT Clinical Support [facility] Oncology Services [address] [place] [phone] Markus Finley MD [address] [place] [address] Acute renal failure, unspecified acute renal failure type (HCC) (Primary Dx); Metastatic melanoma (HCC) Discharge Disposition: Discharged to home or Selfcare Social History Tobacco Use Types Packs/Day Years Used Date Smoking Tobacco: Former Cigarettes 0.5 8.5 S tarted: 04/18/2016 Smokeless Tobacco: Never Alcohol Use Standard Drinks/Week Comments Yes 0 (1 standard drink = 0.6 oz pur e alcohol) [facility] Utilities Answer Date Recorded In the past 12 months has th e electric, gas, oil, or water [employer] threatened to shut off services in your home? Patient declined 08/01/2024 Social Connection and Isolation Panel [NHANES] A nswer Date Recorded In a typical week, how many times do you talk on the phone with family, friends, or neighbors? Patient declined 08/01/2024 How often do you get togethe r with friends or relatives? Patient declined 08/01/2024 How often do you attend hindu or baptism serv ices? Patient declined 08/01/2024 Do you belong to any clubs o r organizations such as hindu groups, unions, fraternal or athletic groups, or [...] 08/01/2024 [facility] - Occupational Stress Questionnaire Answer [...] any time in the past 12 m [facility], were you homeless or living in a intermediate (including now)? Patient declined 08/01/2024 Comments No [...] Contact Info) Description 11/15/2024 1:00 PM MANAGER FRENCH Lab [facility] [address] [place] [address] Markus Finley MD [address] [place] [address] 11/15/2024 2:00 PM MANAGER FRENCH Appointment [facility] MRI [address] [place] [address] Markus Finley MD [address] [place] [address] Discharge Disposition: Discharged to home or Selfcare documented as of this encounter Procedures Procedure Name Priority Date/Time Associated Diagnosis Comments CMP (COMPREHENSIVE METABOLIC PANEL) STAT 08/13/2024 11:39 AM CDT Metastatic melanoma (HCC) documented in this encounter Results * (ABNORMAL) CMP (COMPREHENSIVE METABOLIC PANEL) (08/13/2024 11:39 AM CDT) SODIUM 132(L) 136 - 145 mmol/L 08/13/2024 12:47 PM CDT [facility] POTASSIUM 3.8 3.5 - 5.1 mmol/L 08/13/2024 12:47 PM CDT [facility] CHLORIDE 99 98 - 107 mmol/L 08/13/2024 12:47 PM CDT [facility] CO2, VENOUS 26 22 - 30 mmol/L 08/13/2024 12:47 PM CDT [facility] ANION GAP 10.8 <18.0 mmol/L 08/13/2024 12:47 PM CDT [facility] GLUCOSE 127(H) 70 - 99 mg/dL 08/13/2024 12:47 PM CDT [facility] BUN 16 5 - 18 mg/dL 08/13/2024 12:47 PM T [facility] CREATININE, BLOOD 0.88 0.60 - 1.00 mg/dL 08/13/2024 12:47 PM T [facility] BUN/CREATININE RATIO 18 12 - 20 ratio 08/13/2024 12:47 PM [facility] TOTAL PROTEIN 6.2(L) 6.3 - 8.2 g/dL 08/13/2024 12:47 PM CDT [facility] ALBUMIN 3.7 3.5 - 5.0 g/dL 08/13/2024 12:47 PM [facility] A/G RATIO 1.5 1.0 - 2.2 08/13/2024 12:47 PM T [facility] CALCIUM 8.9 8.7 - 10.5 mg/dL 08/13/2024 12:47 PM T [facility] T BILI 0.7 0.2 - 1.2 mg/dL 08/13/2024 12:47 PM [facility] SGOT (AST) 17 5 - 34 U/L 08/13/2024 12:47 PM [facility] SGPT (ALT) 62(H) 0 - 55 U/L 08/13/2024 12:47 PM [facility] ALKALINE PHOSPHATASE 75 40 - 150 U/L 08/13/2024 12:47 PM [facility] IS THE PATIENT REQUIRED TO BE FASTING? No 08/13/2024 12:47 PM T [facility] GFR, ESTIMATED >60 >=60 08/13/2024 12:47 PM [facility] Comment: Creatinine Clearance is the preferred criteria for selecting drug dose adjustments in renally impaired patients. ??The GFR is provided as additional pertinent clinical information. GFR is reported in mL/min/1.73 sq m. Calculation based on the Chronic Kidney Disease Epidemiology Collaboration (CKD- EPI) equation refit without adjustment for race. GFR, EST. >60 >=60 024 12:47 PM CDT [facility] GFR, EST. NONAFRICAN >60 >=60 08/13/2024 12:47 PM CDT [facility] Blood Sub-Q Port Venou s Access Device (Medi-Port, Implanted Port) / Unknown 08/13/2024 11:39 AM CDT 08/13/2024 11:39 AM CDT us Markus Finley MD CHEMISTRY ORDERABLES Fin al Result [facility] [address] [place] [address] documented in this encounter Visit Diagnoses Diagnosis [...] Units documented in this encounter Care Teams Car Rental Agency Manager Relationship Specialty Start Date End Date Pritesh Chu MD [address] [place] [address] PCP - General Family Medicine 04/18/24 Markus Finley MD [address] [place] [address] Consulting Physician Medical Oncology 04/18/24 documented as of this encounter
--- OUTSIDE RECORDS SUMMARY | 2024-10-26 10:54 | XMS_ITS | Encounter Summary ---
Author Organization [facility] Address [address] [place] [address] Phone Care Team Providers Care Cutter Tender Name Role Phone Kellen Chu MD Primary Care Provider Markus Finley MD Unavailable [phone] Reason for Visit * Reason Comments Abnormal Study/Test Result * Auth/Cert (Routine) Specialty Diagnoses / Procedures Referred By Contac t Referred To Contact Diagnoses Hypokalemia LAEXX (acute kidney injury) ([facility]) Ranjan Stuart MD [address] [place] [address] Phone: tel: fax: Referral ID Status Reason Start Date Expiration Date Visits Re quested Visits Authorized [id number] 1 1 Encounter Details Date Type Department Care Team (Latest Contact Info) Description 07/25/2024 11:42 AM CDT - 07/30/2024 3:39 PM CDT Hospital Encounter [facility] Med Surg [address] [place] [address] Gael Morales MD [address] [place] [address] Ranjan Stuart MD [address] [place] [address] Brayan Petty MD [address] [place] [address] ALEXX (acute kidney injury) ([facility]) Discharge Disposition: Discharged to home or Selfcare Social History Tobacco Use Types Packs/Day Years Used Date Smoking Tobacco: Former Cigarettes 0.5 8.5 S tarted: 04/18/2016 Smokeless Tobacco: Never Alcohol Use Standard Drinks/Week Comments Yes 0 (1 standard drink = 0.6 oz pur e alcohol) [facility] Utilities Answer Date Recorded In [...] declined 07/25/2024 How often do you attend yazidi or taoism serv ices? Patient declined 07/25/2024 Do you [...] medical care, and heating? Patient declined 07/25/2024 [facility] - Occupational Stress [...] the past [address] [facility], were you homeless or living in a residential (including now)? Patient declined 07/25/2024 Comments No [...] oncologist as previously scheduled for 08/01/2024, andwith final installer inspector in 2 weeks. Exam Day of Discharge: [...] HGBA1C 5.5 07/24/2024 No results found for: [id number] No results found for: CPK , CPKI , CKMB , CKMBNI , CKMBPOCT , CKMBRELINDX , TROPONINI , POCTRP No results found for: FERRITIN No results found for: FOLATE No results found for: PHARTERIAL , PO2ART , [id number] , CO2ART , O2ART Lab Results Component [...] 1st line. potassium chloride SA 20 MEQ Ddr-phda-uyh Commonly known as: KLORCON M Take 2 [...] Thank you very much for allowing the [facility] Adult Hospitalist Service to participate in the [...] PCP in 1 week Follow up with final installer inspector in 2 weeks Follow-up with oncologist as [...] PREDNISONE THERAPY WILL BE COORDINATED BY PATIENT'S WAFER MACHINE OPERATOR/ONCOLOGIST, documented in this encounter Medications at Time [...] 07/30/2024 10:19 AM CDT Nephrology Progress Note [facility] ASSESSMENT: ALEXX-Probably Prerenal and Immunotherapy [...] MD - 07/29/2024 8:42 PM CDT [facility] PROGRESS NOTE Erwin Hilton is [...] results found for: PHARTERIAL , PO2ART , [id number] , CO2ART , O2ART Lab Results Component [...] LACTICA 1.3 07/23/2024 No results found for: [id number] No results found for: FERRITIN No results found for: GLUCOSEPOCT EKG: EKG 12 LEAD Result Date: 07/24/[address] & T wave abnormality, consider lateral ischemia Abnormal ECG No previous ECGs available Confirmed by Emily Hall ([id number]) on 07/24/2024 9:19:48 AM Imaging: No results found. By: Brayan Petty MD, 07/29/2024 8:42 PM CDT * Urbano Quiñonez MD - 07/29/2024 8:23 AM CDT Nephrology Progress Note [facility] ASSESSMENT: ALEXX-Probably Prerenal and Immunotherapy [...] MD - 07/28/2024 3:33 PM CDT [facility] PROGRESS NOTE Erwin Hilton is [...] results found for: PHARTERIAL , PO2ART , [id number] , CO2ART , O2ART Lab Results Component [...] LACTICA 1.3 07/23/2024 No results found for: [id number] No results found for: FERRITIN No results found for: GLUCOSEPOCT EKG: EKG 12 LEAD Result Date: 07/24/[address] & T wave abnormality, consider lateral ischemia Abnormal ECG No previous ECGs available Confirmed by Emily Hall ([id number]) on 07/24/2024 9:19:48 AM Imaging: No results found. By: Brayan Petty MD, 07/28/2024 3:33 PM CDT * Brayan Petty MD - 07/27/2024 11:00 PM CDT [facility] PROGRESS NOTE Erwin Hilton is [...] results found for: PHARTERIAL , PO2ART , [id number] , CO2ART , O2ART Lab Results Component [...] LACTICA 1.3 07/23/2024 No results found for: [id number] No results found for: FERRITIN No results found for: GLUCOSEPOCT EKG: EKG 12 LEAD Result Date: 07/24/[address] & T wave abnormality, consider lateral ischemia Abnormal ECG No previous ECGs available Confirmed by Emily Hall ([id number]) on 07/24/2024 9:19:48 AM Imaging: US RENAL COMPLETE Result Date: 07/27/2024 IMPRESSION: Normal kidneys. Debris within the bladder. Correlate with urinalysis. By: Brayan Petty MD, 07/27/2024 11:00 PM CDT * Brayan Petty MD - 07/27/2024 11:09 AM CDT Request for Documentation Clarification [facility] Erwin Hilton ; VISIT [id number] Query Response Sent: 07/27/24 11:09 CDT From: [...] fatty liver disease, depression, who presented to [facility] with complaints of persistent dehydration. * Assessment [...] PAINTER ERWIN Brand Cecile 2000 Patient ID ([facility]) [id number] Indications: Pericardial effusion. Study Date07/26/2024 Technical quality: [...] lbs. BMI (BSA) 41.58 kg/m^2 (2.23 m^2) Maintenance Controller Bayron Bruno R Room 241 Interpreting Valencia [...] Stuart MD - 07/26/2024 4:13 PM CDT [facility] IN[facility]IENT DAILY PROGRESS NOTE Erwin Hilton is [...] results found for: PHARTERIAL , PO2ART , [id number] , CO2ART , O2ART Lab Results Component [...] previous ECGs available Confirmed by Emily Hall ([id number]) on 07/24/2024 9:19:48 AM Imaging: No results [...] this encounter H&P Notes * Esteban Mcgovern, DENTAL SCHEDULING COORDINATOR, BIG MACHINE CONSULTANT - 07/25/2024 5:55 PM CDT [facility] ADMISSION HISTORY & PHYSICAL HPI: Erwin Hilton is a 24 y.o. female who is known to me from previous admission with a history of melanoma to her left foot status post surgery with skin graft and is and undergoing immunotherapy with oncologist Dr. Finley, history of depression, non alcoholic fatty liver disease, depression, who presented to [facility] with complaints of persistent dehydration. Patient was recently hospitalized here at [facility] from. 07/23-07/24 from nausea vomiting diarrhea causing [...] results found for: PHARTERIAL , PO2ART , [id number] , CO2ART , O2ART No results found [...] with patient and/or family and/or Power of Smoking Pipes Cleaner approximately 16 minutes. Discussed CPR/Intubation/Treatment Goals/Quality of [...] patient and discussed the patient's management with DISPATCHER SERVICE OR WORK Esteban Mcgovern. I agree with the history, physical, assessment, and plan as outlined in the attached note. Based on the clinical evolution, we may be able to discharge her today or tomorrow. Ranjan Stuart MD 07/26/2024 11:11 AM CDT documented in this encounter Consult Notes * Urbano Quiñonez MD - 07/28/2024 8:13 AM CDTAssociated Order(s): IP CONSULT TO NEPHROLOGY Nephrology Consult [facility] Reason for Consult: @NEPHROCONSULTREASON@ Requesting [...] 8:13 AM CDT 07/28/2024 * Marion Ch, DENTAL SCHEDULING COORDINATOR, BIG MACHINE CONSULTANT - 07/26/2024 12:31 PM CDTAssociated Order(s): IP [...] liver disease, depression who presented to [facility] with complaints of persistent dehydration, episodes of [...] Session: Patient declined Stress: Patient Declined (07/25/2024) [facility] [employer] - Occupational Stress Questionnaire Feeling of Stress : Patient declined Recent Concern: Stress - Stress Concern Present (06/27/2024) [employer] [employer] - Occupational Stress Questionnaire Feeling of Stress : To some extent Social Integration: Patient Declined (07/25/2024) Social Connection and Isolation Panel [NHANES] Frequency of Communication with Friends and Family: Patient declined Frequency of Social Gatherings with Friends and Family: Patient declined Attends Jewish Services: Patient declined Active Member of Clubs [...] More than three times a week Attends Jewish Services: Never Active Member of Clubs or [...] 20 mEq Intravenous Once Gael Morales MD Current Outpatient Medications Medication Sig [...] Session: Patient declined Stress: Patient Declined (07/23/2024) [employer] [employer] - Occupational Stress Questionnaire Feeling of Stress : Patient declined Recent Concern: Stress - Stress Concern Present (06/27/2024) [employer] - Occupational Stress Questionnaire Feeling of Stress : To some extent Social Integration: Patient Declined (07/23/2024) Social Connection and Isolation Panel [NHANES] Frequency of Communication with Friends and Family: Patient declined Frequency of Social Gatherings with Friends and Family: Patient declined Attends Jewish Services: Patient declined Active Member of Clubs [...] More than three times a week Attends Jewish Services: Never Active Member of Clubs or [...] Behavior normal. EKG 12 LEAD Performed by: Gael Morales MD Authorized by: Gael Morales MD ECG interpreted by ED Physician in the absence of a flare maker: yes Interpretation: Interpretation: abnormal Rate: ECG rate: [...] technique for this examination. COMPARISON: 06/27/2024 from [facility]. PET-CT 04/03/2024. FINDINGS: The sensitivity for detection [...] Flora Hernandez M.D. TW: JENNY Report ID: [id number] Reading Location: [place] [address] Medical Decision Making Impression: Patient presents with [...] Nell Abraham - 07/30/2024 1:32 PM CDT Mash Tub Cooker Operator - Transition Arrangements Coordinated Note - Transition Specialists do not coordinate all transitions or aspects of transitions- CONFIRM PATIENT READINESS WITH CLOTH MERCERIZER OPERATOR PRIOR TO DISCHARGE Gum Machine Filler notified: yes, notified Rama at the following [...] Nell Abraham - 07/30/2024 1:31 PM CDT Mash Tub Cooker Operator Coordination Note SUMMARY - Mash Tub Cooker Operator currently working the potential transition plan(s): 07/29/2024 @ 12:42 PM CDT ([facility], TS) Follow Up Appointment (See detail within the referral type(s) below for information on what is needed to complete coordination Note - the Transition Specialists do not coordinate all transition types - please direct all question regarding hospital transition to the Gum Machine Filler) Readmission risk level (if calculated) is: 3-Medium [...] Discharge Plan Notification/ Verification Patient's Phone numbers: [phone] (home) Patient's preferred discharge phone number for follow up appointments, etc: (if different from above): N/A Information for bedside nurse to call report and fax PACT Document in Sticky Note?: Not applicable - no external home care agencies or hemodialysis Nursing notified: YES Anil GIRALDO via [employer] chat Decision Maker / Caregiver Information Decision Maker: Patient is assumed to be the medical decision maker Insurance Executive/Wing Coverer Name: Lyndsaytiana Hesster Patient/ Decision Maker and [...] Luz Cruz - 07/29/2024 12:42 PM CDT Mash Tub Cooker Operator Coordination Note SUMMARY - Mash Tub Cooker Operator currently working the potential transition plan(s): 07/29/2024 @ 12:42 PM CDT (, TS) Follow Up Appointment (See detail within the referral type(s) below for information on what is needed to complete coordination Note - the Transition Specialists do not coordinate all transition types - please direct all question regarding hospital transition to the Gum Machine Filler) Readmission risk level (if calculated) is: 3-Medium High Primary Care Provider: PCP: KELLEN CHU MD Primary Medical Coverage: [employer] Secondary Medical Coverage: N/A Hospital Follow-Up appointment(s) scheduling status: Appointment to be made closer to discharge * Interdisciplinary - Kaycee Galarza RN - 07/29/2024 10:37 AM CDT I agree with Savanna Andres [facility] Student RN charted assessments. [...] PM CDT Case Management Patient / Patient Water Resources Technical Officer Contact Note Erwin Perez 's readmission risk level (if calculated) is: 2-Medium Low Patient Class: Inpatient Consecutive Inpatient Midnights 1 Actual day(s) of hospital stay (compare to working DRG):2 New Consult for Case Management? No Summary: Decision Maker: Patient is assumed to be the medical decision maker Insurance Executive/Wing Coverer Name: Lyndsay Hilton Met with Erwin Perez [...] (compare to working DRG): 1 Reason for Gum Machine FillerLeaf Sticker: Re-hospitalization Erwin Perez is in the hospital [...] usedurable medical equipment at home. She uses [facility] in [facility] to obtain her medications. She has not faced any financial barriers to obtaining her medications. She stated that she remembersto take her medications. She is able to transport herself or her family does if needed. She is established with Kellen Chu as PCP. She has [employer] [facility]. She has not completed a HCPOA or [...] Anticipated Discharge Plan: Home 07/26/24 Patient/ patient district sales representative's preferences regarding the discharge plan: Home with out services Family/ Caregiver's readiness, willingness and ability to support patient with anticipated community discharge plan: Did not speak with family/caregiver during this contact. SUMMARY (summary of interaction with patient/decision maker, family and interdisciplinary team) Decision Maker: Patient is assumed to be the medical decision maker Insurance Executive/Wing Coverer Name: Lyndsay Hilton By phone, spoke with [...] Outcome: Ongoing (see interventions/notes) Flowsheets (Taken 07/26/2024 9043) Plan of Care Reviewed With: patient Progress: [...] Ongoing (see interventions/notes) * Interdisciplinary - Sherley Dyer RN - 07/26/2024 10:10 AM CDT [...] Mutually Develop Transition Plan Flowsheets (Taken 07/25/2024 1658) Current Outpatient/Agency/Support Group: infusion therapy, outpatient Patient/Family Anticipated Services at Transition: outpatient care Patient/Family Anticipates Transition to: home Problem: Electrolyte Imbalance Goal: Electrolyte Balance Outcome: Ongoing (see interventions/notes) Intervention: Monitor and Manage Electrolyte Imbalance Flowsheets (Taken 07/25/2024 1658) Fluid/Electrolyte Management: electrolyte supplement initiated intravenous fluid [...] Contact Info) Description 11/15/2024 1:00 PM DIRECTOR SANITATION BUREAU Lab [facility] [address] [place] [address] Markus Finley MD [address] [place] [address] 11/15/2024 2:00 PM DIRECTOR SANITATION BUREAU [facility]ment [facility] 1 [place] [address] Markus Finley MD [address] [place] [address] Discharge Disposition: Discharged to home or Selfcare [...] resultswithin the time period is included. Pathologist [facility] WBC 6.42 4.00 - 12.00 10(3)/mcL 07/30/2024 6:02 AM CDT [facility] RBC 3.97 3.80 - 5.30 10(6)/mcL 07/30/2024 6:02 AM CDT [facility] HEMOGLOBIN (HGB) 11.7(L) 12.0 - 15.8 g/dL 07/30/2024 6:02 AM CDT [facility] HEMATOCRIT (HCT) 34.8(L) 36.0 - 47.0 % 07/30/2024 6:02 AM CDT [facility] MCV 87.7 82.0 - 96.0 fL 07/30/2024 6:02 AM CDT [facility] MCH 29.5 26.0 - 34.0 pg 07/30/2024 6:02 AM T [facility] MCHC 33.6 31.0 - 36.0 g/dL 07/30/2024 6:02 AM [facility] PLATELET COUNT 269 140 - 440 10(3)/[facility] 07/30/2024 6:02 AM T [facility] RDW 13.9 11.8 - 15.5 % 07/30/2024 6:02 AM [facility] MPV 11.0 9.7 - 12.4 fL 07/30/2024 6:02 AM [facility] NEUTROPHILS 85.4(H) 47.0 - 73.0 % 07/30/2024 6:02 AM [facility] LYMPHOCYTES 10.6(L) 18.0 - 42.0 % 07/30/2024 6:02 AM CDT [facility] MONOCYTES 3.7(L) 4.0 - 12.0 % 07/30/2024 6:02 [facility] EOSINOPH[facility] 0.0 0.0 - 5.0 % 07/30/2024 6:02 AM [facility] BASOPHILS 0.3 0.0 - 1.0 % 07/30/2024 6:02 AM CDT [facility] ABSOLUTE NEUTROPHILS 5.48 1.60 - 7.70 10(3)/mcL 07/30/2024 6:02 AM CDT [facility] ABSOLUTE LYMPHOCYTES 0.68(L) 1.30 - 3.20 10(3)/[facility] 07/30/2024 6:02 AM CDT [facility] ABSOLUTE MONOCYTES 0.24 0.20 - 1.00 10(3)/[facility] 07/30/2024 6:02 AM CDT [facility] ABSOLUTE EOSINOPHIL 0.00 0.00 - 0.40 10(3)/[facility] 07/30/2024 6:02 AM CDT [facility] ABSOLUTE BASOPHILS 0.02 0.00 - 0.10 10(3)/[facility] 07/30/2024 6:02 AM CDT [facility] NRBC PER 100 WBC 0 07/30/20 6:02 AM CDT [facility] Blood Venipuncture / Unknown 07/30/2024 4:23 AM CDT 07/30/2024 5:22 AM CDT us Debo Keenan DENTAL SCHEDULING COORDINATOR, BIG MACHINE CONSULTANT HEMATOLOGY ORDERABLES Final Result [facility] [address] [place] [address] * (ABNORMAL) Basic Metabolic Panel w/ Calcium Total (07/30/2024 4:23 AM CDT) Only the most recent of10 resultswithin the time period is included. SODIUM 133(L) 136 - 145 mmol/L 07/30/2024 5:53 AM CDT [facility] POTASSIUM 3.5 3.5 - 5.1 mmol/L 07/30/2024 5:53 AM CDT [facility] CHLORIDE 96(L) 98 - 107 mmol/L 07/30/2024 5:53 AM CDT [facility] CO2, VENOUS 27 22 - 30 mmol/L 07/30/2024 5:53 AM CDT [facility] ANION GAP 13.5 <18.0 mmol/L 07/30/2024 5:53 AM CDT [facility] GLUCOSE 132(H) 70 - 99 mg/dL 07/30/2024 5:53 AM CDT [facility] BUN 15 5 - 18 mg/dL 07/30/2024 5:53 AM CDT [facility] CREATININE, BLOOD 1.24(H) 0.60 - 1.00 mg/dL 07/30/2024 5:53 AM CDT [facility] BUN/CREATININE RATIO 12 12 - 20 ratio 07/30/2024 5:53 AM CDT [facility] CALCIUM 9.2 8.7 - 10.5 mg/dL 07/30/2024 5:53 AM CDT [facility] GFR, ESTIMATED >60 >=60 07/30/2024 5:53 AM CDT [facility] Comment: Creatinine Clearance is the preferred criteria for selecting drug dose adjustments in renally impaired patients. ??The GFR is provided as additional pertinent clinical information. GFR is reported in mL/min/1.73 sq m. Calculation based on the Chronic Kidney Disease Epidemiology Collaboration (CKD- EPI) equation refit without adjustment for race. GFR, EST. >60 >=60 024 5:53 AM CDT [facility] GFR, EST. NONAFRICAN 53(L) >=60 07/30/2024 5:53 AM CDT [facility] Blood Venipuncture / Unknown 07/30/2024 4:23 AM CDT 07/30/2024 5:22 AM CDT us Debo Keenan DENTAL SCHEDULING COORDINATOR, BIG MACHINE CONSULTANT CHEMISTRY ORDERABLES Final Result [facility] [address] [place] [address] * RHYTHM STRIP (07/30/2024 12:00 AM CDT) Only the most recent of18 resultswithin the time period is included. 07/30/2024 us Provider Scan IMG ECG ORDERABLES Final Result RESULTING AGENCY * ANA BASURTO RACHID HEPARIN/SST TOP TUBE (07/29/2024 4:30 AM CDT) Blood No Phlebotomy Charged / Unknown 07/29/2024 4:30 AM CDT 07/29/2024 2:56 PM CDT Brayan Kang MD HEMATOLOGY ORDERABLES Final R esult [facility] [address] [place] [address], * Hepatitis Panel Acute (AHP) (07/29/2024 4:30 AM CDT) HEPATITIS A IGM ANTIBODY NON DETECTED NON DETECTED 07/29/2024 3:37 PM CDT [facility] Comment: IGM Antibodies to HAV not detected. ??Does not exclude early acute or recovered HAV infection. HEP B CORE AB (IGM) NON DETECTED NON DETECTED 07/29/2024 3:37 PM CDT [facility] Comment:IGM anti-HBC not det ected. Does not exclude the possibility of exposure to or infection with HBV. HEPATITIS B SURFACE ANTIGEN NON DETECTED NON DETECTED 07/29/2024 3:37 PM CDT [facility] Comment:A nonreactive test r esult does not [...] 0.17 <1 S/CO 07/29/2024 3:37 PM CDT [facility] Comment: Signal/Cutoff ratio ??< 0.79 is Nondetected [...] HEMATOLOGY ORDERABLES Final Result Performing Organization Address City/[facility] [address]/ZIP Co de Phone Number [facility] [address] [place] [address], [place] * C3 Complement Globulin B-1C (07/29/2024 4:30 AM CDT) C3 COMPLEMENT 133 83 - 193 mg/dL 07/29/2024 3:18 PM CDT [facility] Blood Venipuncture / Unknown 07/29/2024 4:30 AM CDT 07/29/2024 5:15 AM CDT Urbano Quiñonez MD CHEMISTRY ORDERABLES Final Result Performing Organization Address [facility] [address]/ZIP Co de Phone Number [facility] [address] [place] [address], [place] * C4 Complement (07/29/2024 4:30 AM CDT) C4 COMPLEMENT 23 15 - 57 mg/dL 07/29/2024 3:18 PM CDT [facility] Blood Venipuncture / Unknown 07/29/2024 4:30 AM CDT 07/29/2024 5:15 AM CDT Urbano Quiñonez MD CHEMISTRY ORDERABLES Final Result Performing Organization Address City/[facility] [address]/ZIP Co de Phone Number [facility] [address] [place] [address], [place] * ANCA MPO PR3 (07/28/2024 10:15 AM CDT) PROTEINASE 3 AB <0.2 <1.0 AI 12:48 PM CDT [facility] MYELOPEROXIDASE AB <0.2 <1.0 AI 2023 12:48 PM CDT [facility] Blood Venipuncture / Unknown 07/28/2024 10:15 AM CDT 07/28/2024 12:09 PM CDT us Urbano Quiñonez MD IMMUNOLOGY ORDERABLES Final Result Performing Organization Address City/State/[facility] Co de Phone Number [facility] [address] [place] [address], * ANCA IFA SCREEN (07/28/2024 10:15 AM CDT) ANCA IFA SCREEN <1:20 <1:20 titer 07/30/20 24 12:14 PM CDT [facility] Comment: Expected result is < 1:10. ANCA TITER Not Applicable <1:20, Not Applicable titer 07/30/2024 12:14 PM CDT [facility] ANCA PATTERN Not Applicable 07/30/2024 12:14 PM CDT [facility] Comment: Antineutrophil cytoplasmic antibodies (ANCA) are found [...] IMMUNOLOGY ORDERABLES Final Result Performing Organization Address City/[facility] [address]/ZIP Co de Phone Number [facility] [address] [place] [address], [place] * GLOMERULAR BASEMENT MEMBRANE AB, IGG (07/28/2024 10:15 AM CDT) GLOMERULAR BASEMENT MEMBRANE (GBM) <0.2 <1.0 AI 08/07/2024 12:48 PM CDT [facility] Blood Venipuncture / Unknown 07/28/2024 10:15 AM CDT 07/28/2024 12:09 PM CDT Narrative [facility] - 08/07/2024 12:48 PM CDT Antibody testing was performed by multiplex flow immunoassay on the [employer] platform. Urbano Quiñonez MD IMMUNOLOGY ORDERABLES Final Result Performing Organization Address City/[facility] [address]/[facility] Co de Phone Number [facility] [address] [place] [address], [place] * Hepatitis C Antibody (07/28/2024 10:15 AM CDT) hepatitis C antibody 0.18 <1 S/CO 07/28/2024 10:27 PM CDT [facility] Comment: Signal/Cutoff ratio ??< 0.79 is Nondetected [...] CHEMISTRY ORDERABLES Final Result Performing Organization Address [facility] [address]/[facility] Co de Phone Number [facility] [address] [place] [address], [place] * Antinuclear Antibody (BARRETT), Titer If Pos (07/28/2024 10:15 AM CDT) BARRETT SCREEN Negative Negative titer 07/30/2024 11:28 AM CDT [facility] Comment: Antinuclear autoantibodies not detected by IFA at a 1:80 screening dilution of HEp-2 cells. BARRETT TITER Not Applicable Negative, See comment, Not Applicable titer 07/30/2024 11:28 AM CDT [facility] Comment: Antinuclear autoantibodies not detected by IFA at a 1:80 screening dilution of HEp-2 cells. BARRETT PATTERN NOT APPLICABLE 07/30/2024 11:28 AM CDT [facility] Blood Venipuncture / Unknown 07/28/2024 10:15 AM CDT 07/28/2024 12:09 PM CDT Urbano Quiñonez MD IMMUNOLOGY ORDERABLES Final Result Performing Organization Address [facility] [address] [facility] Co de Phone Number [facility] [address] [place] [address], [place] * (ABNORMAL) Ur Protein/Creatinine Ratio (07/28/2024 10:15 AM CDT) UR PROTEIN RAND, QT 170.7 mg/dL 07/28/2024 12:27 PM CDT [facility] Comment:No reference range h as been established. Consider Clinical Correlation. URINE CREATININE 532.6 mg/dL 07/28/2024 12:27 PM CDT [facility] Comment:No reference range h as been established. Consider Clinical Correlation. URINE PROTEIN/CREATIN INE RATIO 0.32(H) <0.25 07/28/2024 12:27 PM CDT [facility] Urine Non-Phlebotomy Collection / Unknown 07/28/2024 10:15 AM CDT 07/28/2024 12:09 PM CDT us Urbano Quiñonez MD URINE ORDERABLES Final Resu lt [facility] [address] [place] [address] * US RENAL COMPLETE (07/27/2024 12:40 PM [...] PM T: ??07/27/2024 12:49 PM Report ID: [id number] Reading Location: ??[id number] Procedure Note Piero Chapman MD - 07/27/2024 [...] Piero Chapman M.D. KN: KHARI Report ID: [id number] Reading Location: [id number] IMPRESSION: Normal kidneys. Debris within the bladder. [...] ?PAINTER ERWIN Brand ?2000 Patient ID (UPI) ?[id number] ? Indications: Pericardial effusion. Study Date07/26/2024 Technical [...] ?BMI (BSA) ?41.58 kg/m^2 (2.23 ? m^2) Maintenance Controller ?Bayron Joseph Room ? 241 Interpreting ? Valencia ? Referring Physician ?Wale ?Physician ?Isabel ?Emily Procedure Note Emily Hall MD - 07/27/2024 Transthoracic Echocardiography Report (TTE) Patient name PAINTER ERWIN Bradn Cecile 2000 Patient ID (UPI) [id number] Indications: Pericardial effusion. Study Date07/26/2024 Technical quality: [...] lbs. BMI (BSA) 41.58 kg/m^2 (2.23 m^2) Maintenance Controller Bayron Joseph Room 241 Interpreting [facility] Referring Physician Wale Physician Isabel Diaz us Esteban Mcgovern DENTAL SCHEDULING COORDINATOR, BIG MACHINE CONSULTANT IMG ECHO ORDERABLES Fin al Result * MAGNESIUM (MG) (07/26/2024 12:21 AM CDT) MAGNESIUM 2.2 1.6 - 2.6 mg/dL 07/26/2024 2:22 AM CDT [facility] Blood Venipuncture / Unknown 07/26/2024 12:21 AM CDT 07/26/2024 12:22 AM CDT us Esteban Mcgovern DENTAL SCHEDULING COORDINATOR, BIG MACHINE CONSULTANT CHEMISTRY ORDERABLES Fi nal Result [facility] [address] [place] [address] * CT ABDOMEN PELVIS W/O CONTRAST (07/25/2024 [...] for this examination. COMPARISON: ?? 06/27/2024 from [facility]. ??PET-CT 04/03/2024. FINDINGS: The sensitivity for detection [...] PM T: ??07/25/2024 12:55 PM Report ID: [id number] Reading Location: ??[id number] Procedure Note Flora Hernandez MD - 07/25/2024 [...] technique for this examination. COMPARISON: 06/27/2024 from [facility]. PET-CT 04/03/2024. FINDINGS: The sensitivity for detection [...] Flora Hernandez M.D. TW: JENNY Report ID: [id number] Reading Location: [id number] IMPRESSION: Fluid-filled colon, without wall thickening or [...] Continued imaging surveillance recommended. Gael Morales MD [facility] CT ORDERABLES Final Re sult * Critical [...] 12 LEAD (07/25/2024 11:48 AM CDT) Pathologist [facility] Ventricular Rate 125 BPM EXTERNAL EKG Atrial Rate 125 BPM EXTERNAL EKG P-R Interval 142 ms EXTERNAL EKG QRS Duration 86 ms EXTERNAL EKG Q-T Duration 302 ms EXTERNAL EKG QTC CALCULATION 435 ms EXTERNAL EKG P Issue 58 degrees EXTERNAL EKG R Issue 6 degrees EXTERNAL EKG T Issue 131 degrees EXTERNAL EKG 07/25/2024 11:4 8 AM CDT Impressions EXTERNAL EKG - 08/06/2024 1:46 PM CDT Sinus tachycardia Possible Left atrial enlargement Possible Anterior infarct (cited on or before 25-JUL-2024) ST & T wave abnormality, consider lateral ischemia Abnormal ECG When compared with ECG of 23-JUL-2024 08:15, No significant change was found Confirmed by WALE VALENCIA ([id number]) on 07/28/2024 12:15:11 PM Also confirmed by WALE VALENCIA ([id number]), communications editor Jocelyne Hinton ([id number]) ??on 08/06/2024 1:46:44 PM Narrative Procedure Note Wale Valencia MD - 08/06/2024 IMPRESSION: Sinus tachycardia Possible Left atrial enlargement Possible Anterior infarct (cited on or before 25-JUL-2024) ST & T wave abnormality, consider lateral ischemia Abnormal ECG When compared with ECG of 23-JUL-2024 08:15, No significant change was found Confirmed by WALE VALENCIA ([id number]) on 07/28/2024 12:15:11 PM Also confirmed by WALE VALENCIA ([id number]), communications editor Jocelyne Hinton ([id number])on 08/06/2024 1:46:44 PM Gael Morales MD IMG ECG ORDERABLES Final R esult Performing Organization Address [facility] [address]/[facility] Co de Phone Number EXTERNAL EKG * EKG SCAN (07/25/2024 12:00 AM CDT) 07/25/2024 us Provider Scan IMG ECG ORDERABLES Final Result Performing Organization Address [facility] [address]/[facility] Co de Phone Number RESULTING AGENCY * Hemoglobin A1C w/ Estimated Glucose (07/24/2024 5:48 AM CDT) HGB-A1C 5.5 4.0 - 6.0 % 07/26/2024 12:49 AM CDT [facility] Est Average Glucose 111.2 mg/dL 07/26/2024 12:49 AM CDT [facility] Blood Venipuncture / Unknown 07/24/2024 5:48 AM CDT 07/24/2024 7:07 AM CDT Narrative [facility] - 07/26/2024 12:49 AM CDT HEMOGLOBIN A1C: DIABETIC PATIENTS: WELL-CONTROLLED: ?? 6.2 - 7.0 INTERMEDIATE WELL-CONTROLLED: ??7.0 - 9.0 POORLY-CONTROLLED: ??>9.0 Esteban Mcgovern DENTAL SCHEDULING COORDINATOR, BIG MACHINE CONSULTANT CHEMISTRY ORDERABLES Fi nal Result Performing Organization Address [facility] [address]/[facility] de Phone Number [facility] [address] [place] [address] documented in this encounter Visit Diagnoses Diagnosis [...] taking oral intake without complications and both PO/IN orders are active, administer through the oral route. acetaminophen (TYLENOL) tablet 650 mg 650 mg, Oral, EVERY 4 HOURS PRN, Starting on Tue07/25/24 at 1748, Until Tue07/30/24 at 1739, Mild pain or more severe pain if patient requests, Fever, If patient is taking oral intake without complications and both PO/IN orders are active, administer through the oral [...] taking oral intake without complications and both PO/IN orders are active, administer through the oral route. acetaminophen (TYLENOL) tablet 650 mg(Linked Group 1) 650 mg, Oral, EVERY 4 HOURS PRN, Starting on Tue07/25/24 at 1748, Until Tue07/30/24 at 1739, Mild pain or more severe pain if patient requests, Fever, If patient is taking oral intake without complications and both PO/IN orders are active, administer through the oral [...] taking oral intake without complications and both PO/IN orders are active, administer through the oral route. Or acetaminophen (TYLENOL) suppository 650 mgJump to med 650 mg, Rectal, EVERY 4 HOURS PRN, Starting on Tue07/25/24 at 1748, Until Tue07/30/24 at 1739, Mild pain or more severe pain if patient requests, Fever, If patient is taking oral intake without complications and both PO/IN orders are active, administer through the oral [...] medications. documented in this encounter Care Teams Cutter Tender Relationship Specialty Start Date End Date Kellen hCu MD [address] [address] PCP - General Family Medicine 04/18/24 Markus Finley MD [address] [place] [address] Consulting Physician Medical Oncology 04/18/24 documented as of this encounter
--- OUTSIDE RECORDS SUMMARY | 2024-10-26 10:54 | XMS_ITS | Encounter Summary ---
Author Organization [facility] Address [address] [place] [address] Phone Care Team Providers Care Enterprise Applications Manager Name Role Phone Pritesh Chu MD Primary Care Provider Markus Finley MD Unavailable [phone] Reason for Visit * Reason Onset Date Comments Transition of Care 08/04/2024 Encounter Details Date Type Department Care Team (Late st Contact Info) Description 08/04/2024 Patient Outreach [facility] Dimension Quarry Supervisor Management [address] [place] [address] Yadira Gill, extension worker of Care Social History Tobacco Use Types [...] How often do you attend religion or temple serv ices? Patient declined 08/01/2024 [...] medical care, and heating? Patient declined 08/01/2024 [facility] - Occupational Stress Questionnaire Answer Date [...] in a detention (including now)? Patient declined 08/01/2024 Comments No Sex and Gender Information Value Date Recorded Sex Assigned at Female 06/20/2024 8:39 AM CDT Legal Sex Female 9:04 AM CDT Gender Identity Female 06/20/2024 8:39 AM CDT Sexual Orientation Bisexual 06/20/2024 8: 39 AM CDT documented as of this encounter Progress Notes * Yadira Gill RN - 08/04/2024 4:16 PM CDT Pt d/c from [facility] 08/03 dx acute renal failure d/t nausea/vomiting/dehydration 1st attempt NO answer * Yadira Gill RN - 08/04/2024 4:16 PM CDT 2nd attempt NO answer -letter sent documented in this encounter Plan of Treatment Upcoming Encounters Date Type Department Care Team (Late st Contact Info) Description 11/15/2024 1:00 PM TRAVEL FREIGHT AND PASSENGER AGENT Lab [facility] Laboratory Services [address] [place] [address] Markus Finley MD [address] [place] [address] 11/15/2024 2:00 PM TRAVEL FREIGHT AND PASSENGER AGENT Appointment [facility] MRI 1 [facility] [place] [address] Markus Finley MD [address] [place] [address] Discharge Disposition: Discharged to home or Selfcare documented as of this encounter Visit Diagnoses Not on filedocumented in this encounter Care Teams Enterprise Applications Manager Relationship Specialty Start Date End Date Pritesh Chu MD [address] [place] [address] PCP - General Family Medicine 04/18/24 Markus Finley MD [address] [place] [address] Consulting Physician Medical Oncology 04/18/24 documented as of this encounter
--- OUTSIDE RECORDS SUMMARY | 2024-10-26 10:54 | XMS_ITS | Encounter Summary ---
Author Organization [facility] Address [address] [facility] [place] [address] Phone Care Team Providers Care Life Manager Name Role Phone Pritesh Chu MD Primary Care Provider Markus Finley MD Unavailable Encounter Details Date Type Department Care Team (Late st Contact Info) Description 08/16/2024 Telephone [facility] Oncology Services [address] [place] [phone] Markus Finley MD [address] [place] [address] Social History Tobacco Use Types Packs/Day Years Used Date Smoking Tobacco: Former Cigarettes 0.5 8.5 S tarted: 04/18/2016 Smokeless Tobacco: Never Alcohol Use Standard Drinks/Week Comments Yes 0 (1 standard drink = 0.6 oz pur e alcohol) [facility] Utilities Answer Date Recorded [...] How often do you attend voodoo or moravian serv ices? Patient declined 08/01/2024 [...] medical care, and heating? Patient declined 08/01/2024 [facility] - Occupational [...] a fdc (including now)? Patient declined 08/01/2024 Comments No [...] st Contact Info) Description 11/15/2024 1:00 PM TEEN COUNSELOR Lab [facility] Laboratory Services [address] [place] [address] Markus Finley MD [address] [place] [address] 11/15/2024 2:00 PM TEEN COUNSELOR Appointment [facility] MRI [address] [place] [address] Markus Finley MD [address] [place] [address] Discharge Disposition: Discharged to home or Selfcare documented as of this encounter Visit Diagnoses Not on filedocumented in this encounter Care Teams Life Manager Relationship Specialty Start Date End Date Pritesh Chu MD [address] [place] [address] PCP - General Family Medicine 04/18/24 Markus Finley MD [address] [place] [address] Consulting Physician Medical Oncology 04/18/24 documented as of this encounter
--- OUTSIDE RECORDS SUMMARY | 2024-10-26 10:54 | XMS_ITS | Encounter Summary ---
Author Organization [facility] Address [address] [place] [address] Phone Care Team Providers Care Turning Machine Operator Name Role Phone Pritesh Chu MD Primary Care Provider [phone] Markus Finley MD Unavailable [phone] Reason for Visit * Reason Onset Date Comments Follow-up 08/01/2024 Encounter Details Date Type Department Care Team (Late st Contact Info) Description 08/01/2024 Post Discharge Follow[facility]up [facility] Nursing Services [address] [place] [address] Arline Rojo, RN [place] Social History Tobacco Use Types Packs/Day Years Used Date Smoking Tobacco: Former Cigarettes 0.5 8.5 S tarted: 04/18/2016 Smokeless Tobacco: Never Alcohol Use Standard Drinks/Week Comments Yes 0 (1 standard drink = 0.6 oz pur e alcohol) [facility] Utilities Answer Date Recorded In [...] How often do you attend worship or judaism serv ices? Patient declined 08/01/2024 [...] medical care, and heating? Patient declined 08/01/2024 [facility] Occupat ional [facility] - Occupational Stress Questionnaire Answer Date [...] a residential (including now)? Patient declined 08/01/2024 Comments No [...] st Contact Info) Description 11/15/2024 1:00 PM PROSTHETIC ASSISTANT [facility] [address] [place] [address] Markus Finley MD [address] [place] [address] 11/15/2024 2:00 PM PROSTHETIC ASSISTANT [facility]ointment [facility] [address] [place] [address] Markus Finley MD [address] [place] [address] Discharge Disposition: Discharged to home or Selfcare documented as of this encounter Visit Diagnoses Not on filedocumented in this encounter Additional Health Concerns Infection Onset Date Last Indicated Resolved Time C. difficile Rule-Out 08/01/2024 08/01/20242023 7:56 PM CDT documented as of this encounter Care Teams Turning Machine Operator Relationship Specialty Start Date End Date Pritesh Chu MD [address] [address] PCP - General Family Medicine 04/18/24 Markus Finley MD [address] [place] [address] Consulting Physician Medical Oncology 04/18/24 documented as of this encounter
--- OUTSIDE RECORDS SUMMARY | 2024-10-26 10:54 | XMS_ITS | Encounter Summary ---
Author Organization [facility] Address [address] [facility] [place] [address] Phone Care Team Providers Care Criminal Researcher Name Role Phone Pritesh Chu MD Primary Care Provider [phone] Markus Finley MD Unavailable [phone] Encounter Details Date Type Department Care Team (Late st Contact Info) Description 08/14/2024 Telephone [facility] Oncology Services [address] [place] [phone] Markus Finley MD [address] [place] [address] Social History Tobacco Use Types Packs/Day Years Used Date Smoking Tobacco: Former Cigarettes 0.5 8.5 S tarted: 04/18/2016 Smokeless Tobacco: Never Alcohol Use Standard Drinks/Week Comments Yes 0 (1 standard drink = 0.6 oz pur e alcohol) [facility] Utilities Answer Date Recorded In the past [...] declined 08/01/2024 How often do you attend zoroastrian or tenriism serv ices? Patient declined 08/01/2024 Do you belong to any clubs o r organizations such as zoroastrian groups, unions, fraternal or athletic groups, or [...] 08/01/2024 [facility] Occupat ional Health - Occupational [...] packets. Prescriptions for both medications sent to [facility] documented in this encounter Plan of Treatment Upcoming Encounters Date Type Department Care Team (Late st Contact Info) Description 11/15/2024 1:00 PM MARKETING DESIGNER Lab [facility] Services [address] [place] [address] Markus Finley MD [address] [place] [address] 11/15/2024 2:00 PM MARKETING DESIGNER [facility]ointment [facility] [address] [place] [address] Markus Finley MD [address] [place] [address] Discharge Disposition: Discharged to home or Selfcare documented as of this encounter Visit Diagnoses Not on filedocumented in this encounter Care Teams Criminal Researcher Relationship Specialty Start Date End Date Pritesh Chu MD [address] [place] [address] PCP - General Family Medicine 04/18/24 Markus Finley MD [address] [place] [address] Consulting Physician Medical Oncology 04/18/24 documented as of this encounter
--- OUTSIDE RECORDS SUMMARY | 2024-10-26 10:54 | XMS_ITS | Encounter Summary ---
Author Organization [facility] Address [address] [facility] [place] [address] Phone Care Team Providers Care Wine Fermenter Name Role Phone Pritesh Chu MD Primary Care Provider [phone] Markus Finley MD Unavailable [phone] Encounter Details Date Type Department Care Team (Late st Contact Info) Description 08/20/2024 1:40 PM CDT Clinical Support [facility] Oncology Services [address] [place] [phone] Markus Finley MD [address] [place] [address] Metastatic melanoma (HCC) (Primary Dx) Discharge Disposition: Discharged to home or Selfcare Social History Tobacco Use Types Packs/Day Years Used Date Smoking Tobacco: Former Cigarettes 0.5 8.5 S tarted: 04/18/2016 Smokeless Tobacco: Never Alcohol Use Standard Drinks/Week Comments Yes 0 (1 standard drink = 0.6 oz pur e alcohol) [facility] Utilities Answer Date Recorded In the past 12 months has tocario, gas, oil, or water [place] threatened to shut off services in your home? Patient declined 08/01/2024 Social Connection and Isolation Panel [NHANES] A nswer Date Recorded In a typical week, how many times do you talk on the phone with family, friends, or neighbors? Patient declined 08/01/2024 How often do you get togethe r with friends or relatives? Patient declined 08/01/2024 How often do you attend anabaptism or mormon serv ices? Patient declined 08/01/2024 [...] medical care, and heating? Patient declined 08/01/2024 [facility] of Occupat ional Health - [...] st Contact Info) Description 11/15/2024 1:00 PM TURBO GENERATOR OILER Lab [facility] Laboratory Services [address] [place] [address] Markus Finley MD [address] [place] [address] 11/15/2024 2:00 PM TURBO GENERATOR OILER Appointment [facility] MRI [address] [facility] [place] [phone] Markus Finley MD [address] [place] [address] Discharge Disposition: Discharged to home or Selfcare [...] 12.00 10(3)/mcL 08/20/2024 2:54 PM CDT [facility] RBC 4.11 3.80 - 5.30 10(6)/mcL 08/20/2024 2:54 PM CDT [facility] HEMOGLOBIN (HGB) 12.3 12.0 - 15.8 g/dL 08/20/2024 2:54 PM CDT [facility] HEMATOCRIT (HCT) 36.7 36.0 - 47.0 % 08/20/2024 2:54 PM CDT [facility] MCV 89.3 82.0 - 96.0 fL 08/20/2024 2:54 PM CDT [facility] MCH 29.9 26.0 - 34.0 pg 08/20/2024 2:54 PM CDT [facility] MCHC 33.5 31.0 - 36.0 g/dL 08/20/2024 2:54 PM CDT [facility] PLATELET COUNT 263 140 - 440 10(3)/[facility] 08/20/2024 2:54 PM CDT [facility] RDW 14.5 11.8 - 15.5 % 08/20/2024 2:54 PM CDT [facility] MPV 9.6(L) 9.7 - 12.4 fL 08/20/2024 2:54 PM CDT [facility] NEUTROPHILS 90.0(H) 47.0 - 73.0 % 08/20/2024 2:54 PM CDT [facility] LYMPHOCYTES 5.8(L) 18.0 - 42.0 % 08/20/2024 2:54 PM CDT [facility] MONOCYTES 4.2 4.0 - 12.0 % 08/20/2024 2:54 PM CDT [facility] EOSINOPHILS 0.0 0.0 - 5.0 % 08/20/2024 2:54 PM CDT [facility] BASOPHILS 0.0 0.0 - 1.0 % 08/20/2024 2:54 PM CDT [facility] ABSOLUTE NEUTROPHILS 4.98 1.60 - 7.70 10(3)/[facility] 08/20/2024 2:54 PM CDT [facility] ABSOLUTE LYMPHOCYTES 0.32(L) 1.30 - 3.20 10(3)/[facility] 08/20/2024 2:54 PM CDT [facility] ABSOLUTE MONOCYTES 0.23 0.20 - 1.00 10(3)/[facility] 08/20/2024 2:54 PM CDT [facility] ABSOLUTE EOSINOPHIL 0.00 0.00 - 0.40 10(3)/[facility] 08/20/2024 2:54 PM CDT [facility] ABSOLUTE BASOPHILS 0.00 0.00 - 0.10 10(3)/[facility] 08/20/2024 2:54 PM CDT [facility] NRBC PER 100 WBC 0 08/20/20 2:54 PM CDT [facility] Blood Venipuncture / Unknown 08/20/2024 2:00 PM CDT 08/20/2024 2:02 PM CDT us Markus Finley MD HEMATOLOGY ORDERABLES Fi nal Result [facility] [address] [place] [address] * (ABNORMAL) CMP (COMPREHENSIVE METABOLIC PANEL) (08/20/2024 2:00 PM CDT) SODIUM 133(L) 136 - 145 mmol/L 08/20/2024 2:59 PM CDT [facility] POTASSIUM 4.3 3.5 - 5.1 mmol/L 08/20/2024 2:59 PM CDT [facility] CHLORIDE 106 98 - 107 mmol/L 08/20/2024 2:59 PM CDT [facility] CO2, VENOUS 18(L) 22 - 30 mmol/L 08/20/2024 2:59 PM CDT [facility] ANION GAP 13.3 <18.0 mmol/L 08/20/2024 2:59 PM CDT [facility] GLUCOSE 121(H) 70 - 99 mg/dL 08/20/2024 2:59 PM CDT [facility] BUN 18 5 - 18 mg/dL 08/20/2024 2:59 PM CDT [facility] CREATININE, BLOOD 0.87 0.60 - 1.00 mg/dL 08/20/2024 2:59 PM CDT [facility] BUN/CREATININE RATIO 21(H) 12 - 20 ratio 08/20/2024 2:59 PM CDT [facility] TOTAL PROTEIN 6.0(L) 6.3 - 8.2 g/dL 08/20/2024 2:59 PM CDT [facility] ALBUMIN 3.7 3.5 - 5.0 g/dL 08/20/2024 2:59 PM CDT [facility] A/G RATIO 1.6 1.0 - 2.2 08/20/2024 2:59 PM CDT [facility] CALCIUM 8.9 8.7 - 10.5 mg/dL 08/20/2024 2:59 PM CDT [facility] T BILI 0.4 0.2 - 1.2 mg/dL 08/20/2024 2:59 PM CDT [facility] SGOT (AST) 13 5 - 34 U/L 08/20/2024 2:59 PM CDT [facility] SGPT (ALT) 43 0 - 55 U/L 08/20/2024 2:59 PM CDT [facility] ALKALINE PHOSPHATASE 64 40 - 150 U/L 08/20/2024 2:59 PM CDT [facility] IS THE PATIENT REQUIRED TO BE FASTING? No 08/20/2024 2:59 PM CDT [facility] GFR, ESTIMATED >60 >=60 08/20/2024 2:59 PM CDT [facility] Comment: Creatinine Clearance is the preferred criteria for selecting drug dose adjustments in renally impaired patients. ??The GFR is provided as additional pertinent clinical information. GFR is reported in mL/min/1.73 sq m. Calculation based on the Chronic Kidney Disease Epidemiology Collaboration (CKD- EPI) equation refit without adjustment for race. GFR, EST. >60 >=60 024 2:59 PM CDT [facility] GFR, EST. NONAFRICAN >60 >=60 08/20/2024 2:59 PM CDT [facility] Blood Venipuncture / Unknown 08/20/2024 2:00 PM CDT 08/20/2024 2:02 PM CDT Markus Finley MD CHEMISTRY ORDERABLES Fin al Result [facility] [address] [place] [address] documented in this encounter Visit Diagnoses Diagnosis [...] Units documented in this encounter Care Teams Wine Fermenter Relationship Specialty Start Date End Date Pritesh Chu MD [address] [place] [address] PCP - General Family Medicine 04/18/24 Markus Finley MD [address] [place] [address] Consulting Physician Medical Oncology 04/18/24 documented as of this encounter
--- OUTSIDE RECORDS SUMMARY | 2024-10-26 10:54 | XMS_ITS | Encounter Summary ---
Author Organization [facility] Address [address] [address] Phone Care Team Providers Care Invasive Physician Name Role Phone Pritesh Chu MD Primary Care Provider [phone] Markus Finley MD Unavailable [phone] Reason for Visit * Reason Onset Date Comments Transition of Care 07/31/2024 TCM 1st attem pt Encounter Details Date Type Department Care Team (Late st Contact Info) Description 07/31/2024 Patient Outreach [facility] Hi Ranger Operator Management [address] [place] [address] Maday Suarez, RN [place] Transition of Care (TCM 1st attempt) Social History Tobacco Use Types Packs/Day Years Used Date Smoking Tobacco: Former Cigarettes 0.5 8.5 S tarted: 04/18/2016 Smokeless Tobacco: Never Alcohol Use Standard Drinks/Week Comments Yes 0 (1 standard drink = 0.6 oz pur e alcohol) [facility] Utilities Answer [...] declined 08/01/2024 How often do you attend faith or zoroastrian serv ices? Patient declined 08/01/2024 Do you belong to any clubs o r organizations such as faith groups, unions, fraternal or athletic groups, or [...] medical care, and heating? Patient declined 08/01/2024 [facility] Occupat ional Health - Occupational [...] any time in the past 12 m [facility], were you homeless or living in [...] Follow-Up Call Discharge diagnosis: ALEXX Discharge facility: [facility] Patient's Current Condition: Chris states that [...] no Nebulizer: no Medications: Did the patient picker machine operator their medications from the pharmacy? Yes Is the patient compliant with the medication directions? Yes Follow Up Appointments: All Patient Appointments Provider Department Dept Phone 08/01/2024 2:20 PM Markus Finley [facility] Oncology Services [phone] 08/07/2024 2:00 PM [facility] CC INFUSION CHR7 [facility] Oncology Services [phone] PCP:Dr. Chu - states she will not f/u with PCP and she only sees [facility] Appointment scheduled within 7 days of Discharge (5 days for Heart Failure)? Yes, with [facility] - oncology Transportation: Patient plans to attend follow-up appointment and has transportation to follow up visit?Yes 60 Day utilization: ED: 3 Hospital Admissions: 2 Please call Supervisor Money Room Maday RN, at [phone] with any questions. documented in this encounter Plan of Treatment Upcoming Encounters Date Type Department Care Team (Late st Contact Info) Description 11/15/2024 1:00 PM CAREER AND TECHNOLOGY EDUCATION TEACHER Lab [facility] Services [address] [place] [address] Markus Finley MD [address] [place] [address] 11/15/2024 2:00 PM CAREER AND TECHNOLOGY EDUCATION TEACHER Appointment [facility] [address] [place] [address] Markus Finley MD [address] [place] [address] Discharge Disposition: Discharged to home or Selfcare documented as of this encounter Visit Diagnoses Not on filedocumented in this encounter Care Teams Invasive Physician Relationship Specialty Start Date End Date Pritesh Chu MD [address] [place] [address] PCP - General Family Medicine 04/18/24 Markus Finley MD [address] [place] [address] Consulting Physician Medical Oncology 04/18/24 documented as of this encounter
--- OUTSIDE RECORDS SUMMARY | 2024-10-26 10:54 | XMS_ITS | Encounter Summary ---
Author Organization [facility] Address [address] [place] [address] Phone Care Team Providers Care Workforce Management Analyst Name Role Phone Pritesh Chu MD Primary Care Provider [phone] Markus Finley MD Unavailable [phone] Reason for Visit * Reason Onset Date Comments Follow-up 08/06/2024 Encounter Details Date Type Department Care Team (Late st Contact Info) Description 08/06/2024 Post Discharge Follow-up [facility] Nursing Services [address] [place] [address] Arline Rojo, RN [place] Social [...] declined 08/01/2024 How often do you attend mu-ism or mandaen serv ices? Patient declined 08/01/2024 Do you [...] heating? Patient declined 08/01/2024 [facility] of Occupat ional [facility] - Occupational Stress Questionnaire Answer Date [...] any time in the past 12 m [facility], were you homeless or [...] st Contact Info) Description 11/15/2024 1:00 PM EXTRACTOR PULLER [facility] [address] [place] [address] Markus Finley MD [address] [place] [address] 11/15/2024 2:00 PM EXTRACTOR PULLER [facility] [address] [place] [address] Markus Finley MD [address] [place] [address] Discharge Disposition: Discharged to home or Selfcare documented as of this encounter Visit Diagnoses Not on filedocumented in this encounter Care Teams Workforce Management Analyst Relationship Specialty Start Date End Date Pritesh Chu MD [address] [address] PCP - General Family Medicine 04/18/24 Markus Finley MD [address] [place] [address] Consulting Physician Medical Oncology 04/18/24 documented as of this encounter
--- OUTSIDE RECORDS SUMMARY | 2024-10-26 10:54 | XMS_ITS | Encounter Summary ---
Author Organization [facility] Care Team Providers Care Sign Hanger Supervisor Name Role Phone Pritesh Chu MD Primary Care Provider Markus Finley MD Unavailable [phone] Encounter Details Date Type Department Care Team (Latest Contact Info) Description 08/15/2024 Travel Social History Tobacco Use Types Packs/Day Years Used Date Smoking Tobacco: Former Cigarettes 0.5 8.5 S tarted: 04/18/2016 Smokeless Tobacco: Never Alcohol Use Standard Drinks/Week Comments Yes 0 (1 standard drink = 0.6 oz pur e alcohol) [facility] Utilities Answer Date Recorded In the past 12 months has [employer], gas, oil, or water [employer] threatened to shut off services in your home? Patient declined 08/01/2024 Social Connection and Isolation Panel [NHANES] A nswer Date Recorded In a typical week, how many times do you talk on the phone with family, friends, or neighbors? Patient declined 08/01/2024 How often do you get togethe r with friends or relatives? Patient declined 08/01/2024 How often do you attend tenriism or hinduism serv ices? Patient declined 08/01/2024 [...] 08/01/2024 [facility] of Occupat ional [facility] - Occupational Stress Questionnaire Answer Date [...] a penitentiary (including now)? Patient declined 08/01/2024 Comments No [...] st Contact Info) Description 11/15/2024 1:00 PM PAPER PATTERN INSPECTOR [facility] [address] [place] [address] Markus Finley MD [address] [place] [address] 11/15/2024 2:00 PM PAPER PATTERN INSPECTOR Appointment [facility] [address] [place] [address] Markus Finley MD [address] [place] [address] Discharge Disposition: Discharged to home or Selfcare documented as of this encounter Visit Diagnoses Not on filedocumented in this encounter Care Teams Sign Hanger Supervisor Relationship Specialty Start Date End Date Pritesh Chu MD [address] [place] [address] PCP - General Family Medicine 04/18/24 Markus Finley MD [address] [place] [address] Consulting Physician Medical Oncology 04/18/24 documented as of this encounter
--- OUTSIDE RECORDS SUMMARY | 2024-10-26 10:54 | XMS_ITS | Encounter Summary ---
Author Organization [facility] Address [address] [facility] [place] [address] Phone Care Team Providers Care Radio Assembler Name Role Phone Pritesh Chu MD Primary Care Provider [phone] Markus Finley MD Unavailable [phone] Zander Cha MD Unavailable Reason for Referral * Consult, Test & Initiate Treatment (Routine) - Closed Specialty Diagnoses / Procedures Referred By Contross t Referred To Contact General Surgery Diagnoses Metastatic melanoma (HCC) Subcutaneous nodule of left lower extremity Markus Finley MD [address] [place] [address] Phone: tel: fax: [facility] Medical Group - General Surgery [facility] [address] [facility] [address] [address] Phone: tel: fax: Referral ID Status Reason Start Date Expiration Date Visits Re quested Visits Authorized [id number] Closed 08/22/2024 1 1 Scheduling Instructions Dayanara [...] fluids normal saline daily via port., Disp: 49261 mL, Rfl: 0 No current facility-administered medications [...] Description 08/20/2024 1:00 PM CDT Office Visit [facility] Oncology Services [address] [place] [address] Markus Finley MD [address] [place] [address] Non-alcoholic fatty liver disease (Primary Dx); Diarrhea [...] In the past 12 months has e [employer] gas, oil, or water [employer] threatened to shut off services in your home? Patient declined 08/01/2024 Social Connection and Isolation Panel [NHANES] A nswer Date Recorded In a typical week, how many times do you talk on the phone with family, friends, or neighbors? Patient declined 08/01/2024 How often do you get togethe r with friends or relatives? Patient declined 08/01/2024 How often do you attend uatsdin or uatsdin serv ices? Patient declined 08/01/2024 Do you belong to any clubs o r organizations such as uatsdin groups, unions, fraternal or athletic groups, or [...] declined 08/01/2024 [facility] of Occupat ional [facility] - Occupational Stress Questionnaire Answer Date [...] received on 07/17/24. 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 Reviewed patients past medical, surgical, social, and family history. Outpatient Medications Marked as Taking for the 08/20/24 encounter (Office Visit) with Markus Fniley MD Medication Sig Dispense Refill diphenoxylate-atropine (LOMOTIL) [...] 4.[address] abdomen pelvis done at [facility] on 06/27/2024 No evidence of appendicitis. [...] patient needs referral to oncological surgeon at [facility]. 9. Obtain C.diff stool testing to assess [...] received on 07/17/24. Patient was admitted to [facility] from 07/25/24through 07/30/24 and 08/02/24 through 08/03/24 [...] Yervoy and Opdivo on 07/17/24 --admitted to [facility] from 07/25/24 through 07/30/24 and 08/02/24 through [...] 4.[address] abdomen pelvis done at [facility] on 06/27/2024 No evidence of appendicitis. [...] patient needs referral to oncological surgeon at [facility]. 9. Obtain C.diff stool testing to assess [...] st Contact Info) Description 11/15/2024 1:00 PM CAPSULE FILLING MACHINE OPERATOR [facility] [address] [place] [address] Markus Finley MD [address] [place] [address] 11/15/2024 2:00 PM CAPSULE FILLING MACHINE OPERATOR [facility]ointment [facility] 1 [facility] [place] [address] Markus Finley MD [address] [place] [address] Discharge Disposition: Discharged to home or Selfcare [...] documented as of this encounter Care Teams Radio Assembler Relationship Specialty Start Date End Date Pritesh Chu MD [address] [address] PCP - General Family Medicine 04/18/24 Markus Finley MD [address] [place] [address] Consulting Physician Medical Oncology 04/18/24 Zander Cha MD [address] [address] Consulting Physician Colon and Rectal Surgery 08/24/24 documented as of this encounter
--- OUTSIDE RECORDS SUMMARY | 2024-10-26 10:54 | XMS_ITS | Encounter Summary ---
Author Organization [facility] Address [address] [facility] [place] [address] Phone Care Team Providers Care Carriage Feeder Name Role Phone Pritesh Chu MD Primary Care Provider [phone] Markus Finley MD Unavailable Reason for Visit * Episode Based Medications (Routine) - Closed Specialty Diagnoses / Procedures Referred By Contross t Referred To Contact Diagnoses Metastatic melanoma (HCC) Markus Finley MD [address] [place] [address] Phone: tel: fax: [facility] Oncology Services [address] [place] [address] Phone: tel: fax: Referral ID Status Reason Start Date Expiration Date Visits Re quested Visits Authorized [id number] Closed 04/19/2024 1 30 Encounter Details Date Type Department Care Team (Late st Contact Info) Description 08/15/2024 11:30 AM CDT Clinical Support [facility] Oncology Services [address] [place] [address] Markus Finley MD [address] [place] [address] Metastatic melanoma (HCC) Discharge Disposition: Discharged to home or Selfcare Social History Tobacco Use Types Packs/Day Years Used Date Smoking Tobacco: Former Cigarettes 0.5 8.5 S tarted: 04/18/2016 Smokeless Tobacco: Never Alcohol Use Standard Drinks/Week Comments Yes 0 (1 standard drink = 0.6 oz pur e alcohol) [facility] Utilities Answer Date Recorded In [...] declined 08/01/2024 How often do you attend zoroastrianism or baptism serv ices? Patient declined 08/01/2024 [...] medical care, and heating? Patient declined 08/01/2024 [facility] [place] [facility] of Occupat ional Health - Occupational Stress [...] any time in the past 12 m [facility], were you homeless or living in a [...] Contact Info) Description 11/15/2024 1:00 PM METER REPAIRER [facility] [address] [place] [address] Markus Finley MD [address] [place] [address] 11/15/2024 2:00 PM METER REPAIRER [facility] 1 [facility] [place] [address] Markus Finley MD [address] [place] [address] Discharge Disposition: Discharged to home or Selfcare documented as of this encounter Procedures Procedure Name Priority Date/Time Associated Diagnosis Comments CMP (COMPREHENSIVE METABOLIC PANEL) STAT 08/15/2024 11:35 AM CDT Metastatic melanoma (HCC) documented in this encounter Results * (ABNORMAL) CMP (COMPREHENSIVE METABOLIC PANEL) (08/15/2024 11:35 AM CDT) SODIUM 132(L) 136 - 145 mmol/L 08/15/2024 12:[address] [facility] POTASSIUM 4.0 3.5 - 5.1 mmol/L 08/15/2024 12:[address] [facility] CHLORIDE 100 98 - 107 mmol/L 08/15/2024 12:[address] [facility] CO2, VENOUS 25 22 - 30 mmol/L 08/15/2024 12:[address] [facility] ANION GAP 11.0 <18.0 mmol/L 08/15/2024 12:[address] [facility] GLUCOSE 87 70 - 99 mg/dL 08/15/2024 12:[address] [facility] BUN 24(H) 5 - 18 mg/dL 08/15/2024 12:[address] [facility] CREATININE, BLOOD 0.91 0.60 - 1.00 mg/dL 08/15/2024 12:[address] [facility] BUN/CREATININE RATIO 26(H) 12 - 20 ratio 08/15/2024 12:[address] [facility] TOTAL PROTEIN 6.2(L) 6.3 - 8.2 g/dL 08/15/2024 12:[address] [facility] ALBUMIN 3.7 3.5 - 5.0 g/dL 08/15/2024 12:[address] [facility] A/G RATIO 1.5 1.0 - 2.2 08/15/2024 12:[address] [facility] CALCIUM 8.8 8.7 - 10.5 mg/dL 08/15/2024 12:[address] [facility] T BILI 0.9 0.2 - 1.2 mg/dL 08/15/2024 12:[address] [facility] SGOT (AST) 21 5 - 34 U/L 08/15/2024 12:[address] [facility] SGPT (ALT) 69(H) 0 - 55 U/L 08/15/2024 12:[address] [facility] ALKALINE PHOSPHATASE 65 40 - 150 U/L 08/15/2024 12:[address] [facility] IS THE PATIENT REQUIRED TO BE FASTING? No 08/15/2024 12:[address] [facility] GFR, ESTIMATED >60 >=60 08/15/2024 12:[address] [facility] Comment: Creatinine Clearance is the preferred criteria for selecting drug dose adjustments in renally impaired patients. ??The GFR is provided as additional pertinent clinical information. GFR is reported in mL/min/1.73 sq m. Calculation based on the Chronic Kidney Disease Epidemiology Collaboration (CKD- EPI) equation refit without adjustment for race. GFR, EST. >60 >=60 024 12:[address] [facility] GFR, EST. NONAFRICAN >60 >=60 08/15/2024 12:[address] [facility] Blood Sub-Q Port Venou s Access Device (Medi-Port, Implanted Port) / Unknown 08/15/2024 11:35 AM CDT 08/15/2024 11:35 AM CDT Markus Finley MD CHEMISTRY ORDERABLES Fin al Result [facility] #[address] [place] [address] documented in this encounter Visit Diagnoses Diagnosis [...] Units documented in this encounter Care Teams Carriage Feeder Relationship Specialty Start Date End Date Pritesh Chu MD [address] [place] [address] PCP - General Family Medicine 04/18/24 Markus Finley MD [address] [place] [address] Consulting Physician Medical Oncology 04/18/24 documented as of this encounter
--- OUTSIDE RECORDS SUMMARY | 2024-10-26 10:54 | XMS_ITS | Encounter Summary ---
Author Organization [facility] Address [address] [facility] [place] [address] Phone Care Team Providers Care Dry Starch Operator Name Role Phone Pritesh Chu MD Primary Care Provider [phone] Markus Finley MD Unavailable [phone] Encounter Details Date Type Department Care Team (Late st Contact Info) Description 07/25/2024 10:30 AM CDT Clinical Support [facility] Oncology Services [address] [place] [phone] Markus Finley MD [address] [place] [address] Metastatic melanoma (HCC) (Primary Dx) Discharge Disposition: Discharged to home or Selfcare Social History Tobacco Use Types Packs/Day Years Used Date Smoking Tobacco: Former Cigarettes 0.5 8.5 S tarted: 04/18/2016 Smokeless Tobacco: Never Alcohol Use Standard Drinks/Week Comments Yes 0 (1 standard drink = 0.6 oz pur e alcohol) [facility] Utilities Answer Date Recorded In the past 12 months has [employer], gas, oil, or water [employer] threatened to shut off services in your home? Patient declined 07/25/2024 Social Connection and Isolation Panel [NHANES] A nswer Date Recorded In a typical week, how many times do you talk on the phone with family, friends, or neighbors? Patient declined 07/25/2024 How often do you get togethe r with friends or relatives? Patient declined 07/25/2024 How often do you attend spiritism or buddhism serv ices? Patient declined 07/25/2024 Do you [...] for since Tuesday. Pt was admitted to [facility] and discharged yesterday. Pt is not feeling any better, unable to eat or drink. Labs drawn from port x1 attempt. Flushed easily with NS and with good blood return. Orders for 1L IVF and antiemetics placed per [facility]. Critical potassium 2.5 called to infusion center. [...] st Ronald Info) Description 11/15/2024 1:00 PM [facility] Lab [facility] Laboratory Services [address] [place] [address] Markus Finley MD [address] [place] [address] 11/15/2024 2:00 PM [facility] Appointment [facility] MRI 1 [place] [address] Markus Finley MD [address] [place] [address] Discharge Disposition: Discharged to home or Selfcare [...] 1.0 % 07/25/2024 11:29 AM CDT [facility] NEUTROPHILS % 72.0 47.0 - 73.0 % 07/25/2024 11:29 AM CDT [facility] LYMPHOCYTES % 19.0 18.0 - 42.0 % 07/25/2024 11:29 AM CDT [facility] MONOCYTES % 8.0 4.0 - 12.0 % 07/25/2024 11:29 AM CDT [facility] NEUTROPHILS ABSOLUTE 7.01 1.60 - 7.70 10(3)/[facility] 07/25/2024 11:29 AM CDT [facility] LYMPHOCYTES ABSOLUTE 1.82 1.30 - 3.20 10(3)/mcL 07/25/2024 11:29 AM CDT [facility] MONOCYTES ABSOLUTE 0.77 0.20 - 1.00 10(3)/[facility] 07/25/2024 11:29 AM CDT [facility] TOXIC GRANULATION 107/25/2024 11:29 AM CDT [facility] VACUOLATED PMN 107/25/2024 11:29 AM CDT [facility] LARGE PLATELETS 11:29 AM CDT [facility] RBC MORPH STATUS Normal 07/25/20 11:29 AM CDT [facility] Blood Sub-Q Port Venou s Access Device (Medi-Port, Implanted Port) / Unknown 07/25/2024 11:02 AM CDT 07/25/2024 11:02 AM CDT us Markus Finley MD HEMATOLOGY ORDERABLES Fi nal Result [facility] [address] [place] [address] * (ABNORMAL) CBC WITH AUTO DIFFERENTIAL (07/25/2024 11:02 AM CDT) WBC 9.60 4.00 - 12.00 10(3)/mcL 07/25/2024 11:29 AM CDT [facility] RBC 5.98(H) 3.80 - 5.30 10(6)/[facility] 07/25/2024 11:29 AM CDT [facility] HEMOGLOBIN (HGB) 17.6(H) 12.0 - 15.8 g/dL 07/25/2024 11:29 AM CDT [facility] HEMATOCRIT (HCT) 50.8(H) 36.0 - 47.0 % 07/25/2024 11:29 AM CDT [facility] MCV 84.9 82.0 - 96.0 fL 07/25/2024 11:29 AM CDT [facility] MCH 29.4 26.0 - 34.0 pg 07/25/2024 11:29 AM CDT [facility] MCHC 34.6 31.0 - 36.0 g/dL 07/25/2024 11:29 AM CDT [facility] PLATELET COUNT 401 140 - 440 10(3)/mcL 07/25/2024 11:29 AM CDT [facility] RDW 14.4 11.8 - 15.5 % 07/25/2024 11:29 AM CDT [facility] MPV 9.6(L) 9.7 - 12.4 fL 07/25/2024 11:29 AM CDT [facility] NRBC PER 100 WBC 0 07/25/2024 11:29 AM CDT [facility] RESULTS ARE CONSISTENT WITH PERIPHERAL SMEAR REVIEW Yes 07/25/2024 11:29 AM CDT [facility] Blood Sub-Q Port Venou s Access Device (Medi-Port, Implanted Port) / Unknown 07/25/2024 11:02 AM CDT 07/25/2024 11:02 AM CDT us Markus Finley MD HEMATOLOGY ORDERABLES Fi nal Result [facility] [address] [place] [address] * (ABNORMAL) THYROID STIMULATING HORMONE (TSH) (07/25/2024 11:02 AM CDT) TSH 135.164(H) 0.300 - 5.000 mIU/L 07/25/2024 12:22 PM CDT [facility] Blood Sub-Q Port Venou s Access Device (Medi-Port, Implanted Port) / Unknown 07/25/2024 11:02 AM CDT 07/25/2024 11:02 AM CDT Markus Finley MD CHEMISTRY ORDERABLES Fin al Result [facility] [address] [place] [address] * (ABNORMAL) CMP (COMPREHENSIVE METABOLIC PANEL) (07/25/2024 11:02 AM CDT) SODIUM 134(L) 136 - 145 mmol/L 07/25/2024 11:37 AM CDT [facility] POTASSIUM 2.5(LL) 3.5 - 5.1 mmol/L 07/25/2024 11:37 AM CDT [facility] CHLORIDE 93(L) 98 - 107 mmol/L 07/25/2024 11:37 AM CDT [facility] CO2, VENOUS 22 22 - 30 mmol/L 07/25/2024 11:37 AM CDT [facility] ANION GAP 21.5(H) <18.0 mmol/L 07/25/2024 11:37 AM CDT [facility] GLUCOSE 153(H) 70 - 99 mg/dL 07/25/2024 11:37 AM CDT [facility] BUN 30(H) 5 - 18 mg/dL 07/25/2024 11:37 AM CDT [facility] CREATININE, BLOOD 3.31(H) 0.60 - 1.00 mg/dL 07/25/2024 11:37 AM CDT [facility] BUN/CREATININE RATIO 9(L) 12 - 20 ratio 07/25/2024 11:37 AM CDT [facility] TOTAL PROTEIN 8.4(H) 6.3 - 8.2 g/dL 07/25/2024 11:37 AM T [facility] ALBUMIN 4.5 3.5 - 5.0 g/dL 07/25/2024 11:37 AM [facility] A/G RATIO 1.2 1.0 - 2.2 07/25/2024 11:37 AM [facility] CALCIUM 10.2 8.7 - 10.5 mg/dL 07/25/2024 11:37 AM [facility] T BILI 0.9 0.2 - 1.2 mg/dL 07/25/2024 11:37 AM [facility] SGOT (AST) 14 5 - 34 U/L 07/25/2024 11:37 AM [facility] SGPT (ALT) 45 0 - 55 U/L 07/25/2024 11:37 AM [facility] ALKALINE PHOSPHATASE 90 40 - 150 U/L 07/25/2024 11:37 AM [facility] IS THE PATIENT REQUIRED TO BE FASTING? No 07/25/2024 11:37 AM [facility] GFR, ESTIMATED 19(L) >=60 07/25/2024 11:37 AM [facility] Comment: Creatinine Clearance is the preferred criteria for selecting drug dose adjustments in renally impaired patients. ??The GFR is provided as additional pertinent clinical information. GFR is reported in mL/min/1.73 sq m. Calculation based on the Chronic Kidney Disease Epidemiology Collaboration (CKD- EPI) equation refit without adjustment for race. GFR, EST. 21(L) >=60 024 11:37 AM [facility] GFR, EST. NONAFRICAN 17(L) >=60 07/25/2024 11:37 AM [facility] Blood Sub-Q Port Venou s Access Device (Medi-Port, Implanted Port) / Unknown 07/25/2024 11:02 AM CDT 07/25/2024 11:02 AM CDT Markus Finley MD CHEMISTRY ORDERABLES Fin al Result Performing Organization Address City/[facility]/ZIP Co de Phone Number [facility] [address] [place] [address] * MAGNESIUM (MG) (07/25/2024 11:02 AM CDT) MAGNESIUM 2.1 1.6 - 2.6 mg/dL 07/25/2024 11:37 AM CDT [facility] Blood Sub-Q Port Venou s Access Device (Medi-Port, Implanted Port) / Unknown 07/25/2024 11:02 AM CDT 07/25/2024 11:02 AM CDT Markus Finley MD CHEMISTRY ORDERABLES Fin al Result Performing Organization Address [facility] Co de Phone Number [facility] [address] [place] [address] documented in this encounter Visit Diagnoses Diagnosis [...] mg documented in this encounter Care Teams Dry Starch Operator Relationship Specialty Start Date End Date Pritesh Chu MD [address] [place] [address] PCP - General Family Medicine 04/18/24 Markus Finley MD [address] [place] [address] Consulting Physician Medical Oncology 04/18/24 documented as of this encounter
--- OUTSIDE RECORDS SUMMARY | 2024-10-26 10:54 | XMS_ITS | Encounter Summary ---
Author Organization [employer] Care Team Providers Care Global Recruiter Name Role Phone Pritesh Chu MD Primary Care Provider Markus Finley MD Unavailable [phone] Encounter Details Date Type Department Care Team (Latest Contact Info) Description 08/13/2024 Travel Social History Tobacco Use Types Packs/Day Years Used Date Smoking Tobacco: Former Cigarettes 0.5 8.5 S tarted: 04/18/2016 Smokeless Tobacco: Never Alcohol Use Standard Drinks/Week Comments Yes 0 (1 standard drink = 0.6 oz pur e alcohol) [facility] Utilities Answer Date Recorded In the past 12 months has [employer], gas, oil, or water [employer] threatened to shut off services in your home? Patient declined 08/01/2024 Social Connection and Isolation Panel [NHANES] A nswer Date Recorded In a typical week, how many times do you talk on the phone with family, friends, or neighbors? Patient declined 08/01/2024 How often do you get togethe r with friends or relatives? Patient declined 08/01/2024 How often do you attend episcopalian or confucianist serv ices? Patient declined 08/01/2024 Do you [...] [facility] of Occupat ional [facility] - Occupational Stress Questionnaire Answer Date [...] st Contact Info) Description 11/15/2024 1:00 PM WARDROBE SPECIALTY WORKER [facility] [address] [place] [address] Markus Finley MD [address] [place] [address] 11/15/2024 2:00 PM WARDROBE SPECIALTY WORKER [facility]ointment [facility] [address] [place] [address] Markus Finley MD [address] [place] [address] Discharge Disposition: Discharged to home or Selfcare documented as of this encounter Visit Diagnoses Not on filedocumented in this encounter Care Teams Global Recruiter Relationship Specialty Start Date End Date Pritesh Chu MD [address] [place] [address] PCP - General Family Medicine 04/18/24 Markus Finley MD [address] [place] [address] Consulting Physician Medical Oncology 04/18/24 documented as of this encounter
--- OUTSIDE RECORDS SUMMARY | 2024-10-26 10:54 | XMS_ITS | Encounter Summary ---
Author Organization [employer] Care Team Providers Care Wrapper Selector Name Role Phone Pritesh Chu MD Primary Care Provider [phone] Markus Finley MD Unavailable [phone] Encounter Details Date Type Department Care Team (Latest Contact Info) Description 08/06/2024 Travel Social History Tobacco Use Types Packs/Day Years Used Date Smoking Tobacco: Former Cigarettes 0.5 8.5 S tarted: 04/18/2016 Smokeless Tobacco: Never Alcohol Use Standard Drinks/Week Comments Yes 0 (1 standard drink = 0.6 oz pur e alcohol) [facility] Utilities Answer Date Recorded In the past 12 months has [employer], gas, oil, or water [employer] threatened to shut off services in your home? Patient declined 08/01/2024 Social Connection and Isolation Panel [NHANES] A nswer Date Recorded In a typical week, how many times do you talk on the phone with family, friends, or neighbors? Patient declined 08/01/2024 How often do you get togethe r with friends or relatives? Patient declined 08/01/2024 How often do you attend pentecostal or evangelical serv ices? Patient declined 08/01/2024 [...] [facility] of Occupat ional [facility] - Occupational Stress Questionnaire Answer [...] time in the past 12 m [facility], were you homeless or living in a [...] st Contact Info) Description 11/15/2024 1:00 PM CARGO TRIMMER [facility] [address] [place] [address] Markus Finley MD [address] [place] [address] 11/15/2024 2:00 PM CARGO TRIMMER [facility] [address] [place] [address] Markus Finley MD [address] [place] [address] Discharge Disposition: Discharged to home or Selfcare documented as of this encounter Visit Diagnoses Not on filedocumented in this encounter Care Teams Wrapper Selector Relationship Specialty Start Date End Date Pritesh Chu MD [address] [place] [address] PCP - General Family Medicine 04/18/24 Markus Finley MD [address] [place] [address] Consulting Physician Medical Oncology 04/18/24 documented as of this encounter
--- OUTSIDE RECORDS SUMMARY | 2024-10-26 10:54 | XMS_ITS | Encounter Summary ---
Author Organization [facility] Address [address] [place] [address] Phone Care Team Providers Care Carpet Repairer Name Role Phone Pritesh Chu MD Primary Care Provider [phone] Markus Finley MD Unavailable [phone] Encounter Details Date Type Department Care Team (Late st Contact Info) Description 07/25/2024 Post Discharge Follow-up [facility] Nursing Services [address] [place] [address] Arline Rojo, RN [place] Social History Tobacco Use Types Packs/Day Years Used Date Smoking Tobacco: Former Cigarettes 0.5 8.5 S tarted: 04/18/2016 Smokeless Tobacco: Never Alcohol Use Standard Drinks/Week Comments Yes 0 (1 standard drink = 0.6 oz pur e alcohol) [facility] Utilities Answer Date Recorded In the past 12 months has [employer], gas, oil, or water company threatened [...] declined 07/25/2024 How often do you attend jew or faith serv ices? Patient declined 07/25/2024 Do you [...] medical care, and heating? Patient declined 07/25/2024 [facility] - Occupational Stress Questionnaire Answer [...] in a halfway (including now)? Patient declined 07/25/2024 Comments No [...] st Contact Info) Description 11/15/2024 1:00 PM RADIO TOWER TECHNICIAN [facility] [address] [place] [address] Markus Finley MD [address] [place] [address] 11/15/2024 2:00 PM RADIO TOWER TECHNICIAN [facility]ment [facility] [address] [place] [address] Markus Finley MD [address] [place] [address] Discharge Disposition: Discharged to home or Selfcare documented as of this encounter Visit Diagnoses Not on filedocumented in this encounter Care Teams Carpet Repairer Relationship Specialty Start Date End Date Pritesh Chu MD [address] [place], [place] [id number] PCP - General Family Medicine 04/18/24 Markus Finley MD [address] [place] [address] Consulting Physician Medical Oncology 04/18/24 documented as of this encounter
--- OUTSIDE RECORDS SUMMARY | 2024-10-26 10:54 | XMS_ITS | Encounter Summary ---
Author Organization [facility] Care Team Providers Care Consulting Intern Name Role Phone Pritesh Chu MD Primary Care Provider [phone] Markus Finley MD Unavailable [phone] Encounter Details Date Type Department Care Team (Latest Contact Info) Description 08/01/2024 Travel Social History Tobacco Use Types Packs/Day Years Used Date Smoking Tobacco: Former Cigarettes 0.5 8.5 S tarted: 04/18/2016 Smokeless Tobacco: Never Alcohol Use Standard Drinks/Week Comments Yes 0 (1 standard drink = 0.6 oz pur e alcohol) [facility] Utilities Answer Date Recorded In the past 12 months has [employer], gas, oil, or water [employer] threatened to shut off services in your home? Patient declined 08/01/2024 Social Connection and Isolation Panel [NHANES] A nswer Date Recorded In a typical week, how many times do you talk on the phone with family, friends, or neighbors? Patient declined 08/01/2024 How often do you get togethe r with friends or relatives? Patient declined 08/01/2024 How often do you attend adventism or church serv ices? Patient declined 08/01/2024 Do you [...] care, and heating? Patient declined 08/01/2024 [facility] of Occupat ional [facility] - Occupational Stress Questionnaire [...] in the past 12 m [facility], were you homeless or living [...] st Contact Info) Description 11/15/2024 1:00 PM FRUIT BAR MAKER [facility] [address] [place] [phone] Markus Finley MD [address] [place] [address] 11/15/2024 2:00 PM FRUIT BAR MAKER [facility] [address] [place] [address] Markus Finley MD [address] [place] [address] Discharge Disposition: Discharged to home or Selfcare documented as of this encounter Visit Diagnoses Not on filedocumented in this encounter Additional Health Concerns Infection Onset Date Last Indicated Resolved Time C. difficile Rule-Out 08/01/2024 08/01/20242023 7:56 PM CDT documented as of this encounter Care Teams Consulting Intern Relationship Specialty Start Date End Date Pritesh Chu MD [address] [address] PCP - General Family Medicine 04/18/24 Markus Finley MD [address] [place] [address] Consulting Physician Medical Oncology 04/18/24 documented as of this encounter
--- OUTSIDE RECORDS SUMMARY | 2024-10-26 10:54 | XMS_ITS | Encounter Summary ---
Author Organization [facility] Address [address] [facility] [place] [address] Phone Care Team Providers Care Stitching Machine Setter Name Role Phone Pritesh Chu MD Primary Care Provider [phone] Markus Finley MD Unavailable [phone] Reason for Visit * Reason Comments Follow-up Melanoma Encounter Details Date Type Department Care Team (Latest Contact Info) Description 08/01/2024 2:20 PM CDT [facility] [address] [place] [phone] Markus Finley MD [address] [place] [address] Other specified hypothyroidism (Primary Dx); Diarrhea due [...] = 0.6 oz pur e alcohol) [facility] Utilities Answer Date Recorded In [...] declined 08/01/2024 How often do you attend shinto or confucianist serv ices? Patient declined 08/01/2024 [...] medical care, and heating? Patient declined 08/01/2024 [facility] of Occupat ional Health - Occupational Stress [...] in the past 12 m [facility], were you homeless or living [...] performance status. Patient was recently admitted to [facility] from 07/25/24 through 07/30/24 for ALEXX [...] IMAGING STUDIES: CT abdomen pelvis done at [facility] on 06/27/2024 No evidence of appendicitis. [...] Plan: 2. Patient will be transported to [facility] ED for evaluation and activation of [...] [facility] from 07/25/24 through 07/30/24 for AKIand [...] IMAGING STUDIES: CT abdomen pelvis done at [facility] on 06/27/2024 No evidence of appendicitis. [...] hours 2. Patient will be transported to [facility] ED for evaluation and activation of [...] st Contact Info) Description 11/15/2024 1:00 PM MATRIX SUPERVISOR Lab [facility] [address] [place] [address] Markus Finley MD [address] [place] [address] 11/15/2024 2:00 PM MATRIX SUPERVISOR [facility] [address] [place] [address] Markus Finley MD [address] [place] [address] Discharge Disposition: Discharged to home or Selfcare [...] documented as of this encounter Care Teams Stitching Machine Setter Relationship Specialty Start Date End Date Pritesh Chu MD [address] [place] [address] PCP - General Family Medicine 04/18/24 Markus Finley MD [address] [place] [address] Consulting Physician Medical Oncology 04/18/24 documented as of this encounter
--- OUTSIDE RECORDS SUMMARY | 2024-10-26 10:54 | XMS_ITS | Encounter Summary ---
Author Organization [employer] Care Team Providers Care Fashion Buyer Name Role Phone Pritesh Chu MD Primary Care Provider [phone] Markus Finley MD Unavailable [phone] Encounter Details Date Type Department Care Team (Latest Contact Info) Description 08/10/2024 Travel Social History Tobacco Use Types Packs/Day Years Used Date Smoking Tobacco: Former Cigarettes 0.5 8.5 S tarted: 04/18/2016 Smokeless Tobacco: Never Alcohol Use Standard Drinks/Week Comments Yes 0 (1 standard drink = 0.6 oz pur e alcohol) [facility] Utilities Answer Date Recorded In the past 12 months has [employer], gas, oil, or water [employer] threatened to shut off services in your home? Patient declined 08/01/2024 Social Connection and Isolation Panel [NHANES] A nswer Date Recorded In a typical week, how many times do you talk on the phone with family, friends, or neighbors? Patient declined 08/01/2024 How often do you get togethe r with friends or relatives? Patient declined 08/01/2024 How often do you attend orthodoxy or roman catholic serv ices? Patient declined 08/01/2024 Do you belong to any clubs o r organizations such as orthodoxy groups, unions, fraternal or athletic groups, or [...] [facility] of Occupat ional [facility] - [...] long term (including now)? Patient declined 08/01/2024 Comments No [...] Contact Info) Description 11/15/2024 1:00 PM SUPERVISOR WET END [facility] [address] [place] [address] Markus Finley MD [address] [place] [address] 11/15/2024 2:00 PM SUPERVISOR WET END [facility] [address] [place] [address] Markus Finley MD [address] [place] [address] Discharge Disposition: Discharged to home or Selfcare documented as of this encounter Visit Diagnoses Not on filedocumented in this encounter Care Teams Fashion Buyer Relationship Specialty Start Date End Date Pritesh Chu MD [address] [place] [address] PCP - General Family Medicine 04/18/24 Markus Finley MD [address] [place] [address] Consulting Physician Medical Oncology 04/18/24 documented as of this encounter
--- OUTSIDE RECORDS SUMMARY | 2024-10-26 10:54 | XMS_ITS | Encounter Summary ---
Author Organization [facility] Care Team Providers Care Feed Manager Name Role Phone Pritesh Chu MD Primary Care Provider [phone] Markus Finley MD Unavailable [phone] Encounter Details Date Type Department Care Team (Latest Contact Info) Description 07/25/2024 Travel Social History Tobacco Use Types Packs/Day Years Used Date Smoking Tobacco: Former Cigarettes 0.5 8.5 S tarted: 04/18/2016 Smokeless Tobacco: Never Alcohol Use Standard Drinks/Week Comments Yes 0 (1 standard drink = 0.6 oz pur e alcohol) [facility] Utilities Answer Date Recorded In the past 12 months has [employer], gas, oil, or water [employer] threatened to shut off services in your home? Patient declined 07/25/2024 Social Connection and Isolation Panel [NHANES] A nswer Date Recorded In a typical week, how many times do you talk on the phone with family, friends, or neighbors? Patient declined 07/25/2024 How often do you get togethe r with friends or relatives? Patient declined 07/25/2024 How often do you attend restorationism or buddhist serv ices? Patient declined 07/25/2024 Do you [...] medical care, and heating? Patient declined 07/25/2024 [facility] - [...] any time in the past 12 m [facility], were you homeless or living in a half-way (including now)? Patient declined 07/25/2024 Comments No [...] st Contact Info) Description 11/15/2024 1:00 PM ACADEMIC DEPARTMENT CHAIR [facility] 1 [place] [phone] Markus Finley MD [address] [place] [address] 11/15/2024 2:00 PM ACADEMIC DEPARTMENT CHAIR [facility]ment [facility] 1 [place] [phone] Markus Finley MD [address] [place] [address] Discharge Disposition: Discharged to home or Selfcare documented as of this encounter Visit Diagnoses Not on filedocumented in this encounter Care Teams Feed Manager Relationship Specialty Start Date End Date Pritesh Chu MD [address] [place] [address] PCP - General Family Medicine 04/18/24 Markus Finley MD [address] [place] [address] Consulting Physician Medical Oncology 04/18/24 documented as of this encounter
--- OUTSIDE RECORDS SUMMARY | 2024-10-26 10:54 | XMS_ITS | Encounter Summary ---
Author Organization [facility] Address [address] [facility] [place] [address] Phone Care Team Providers Care Inspector Watch Train Name Role Phone Pritesh Chu MD Primary Care Provider [phone] Markus Finley MD Unavailable [phone] Reason for Referral * Radiology Services (Routine) - Closed Specialty Diagnoses / Procedures Referred By Delbert villareal Referred To Contact Radiology Diagnoses Metastatic melanoma (HCC) Procedures PET CT TUMOR IMAGING WHOLE BODY Markus Finley MD [address] [place] [address] Phone: tel: fax: Referral ID Status Reason Start Date Expiration Date Visits Re quested Visits Authorized [id number] Closed 08/06/2024 1 1 Reason for Visit * Radiology Services (Routine) - Closed Specialty Diagnoses / Procedures Referred By Contross villareal Referred To Contact Radiology Diagnoses Metastatic melanoma (HCC) Procedures PET CT TUMOR IMAGING WHOLE BODY Markus Finley MD [address] [place] [address] Phone: tel: fax: Referral ID Status Reason Start Date Expiration Date Visits Re quested Visits Authorized [id number] Closed 08/06/2024 1 1 Encounter Details Date Type Department Care Team (Latest Contact Info) Description 08/15/2024 11:35 AM CDT - 08/15/2024 11:59 PM CDT Hospital Encounter [facility] PET [address] [place] [address] Markus Finley MD [address] [place] [address] Discharge Disposition: Discharged to home or Selfcare Social History Tobacco Use Types Packs/Day Years Used Date Smoking Tobacco: Former Cigarettes 0.5 8.5 S tarted: 04/18/2016 Smokeless Tobacco: Never Alcohol Use Standard Drinks/Week Comments Yes 0 (1 standard drink = 0.6 oz pur e alcohol) [facility] Utilities Answer Date Recorded In the past 12 months has [employer], gas, oil, or water [employer] threatened to shut off services in your home? Patient declined 08/01/2024 Social Connection and Isolation Panel [NHANES] A nswer Date Recorded In a typical week, how many times do you talk on the phone with family, friends, or neighbors? Patient declined 08/01/2024 How often do you get togethe r with friends or relatives? Patient declined 08/01/2024 How often do you attend mosque or jainism serv ices? Patient declined 08/01/2024 Do you [...] declined 08/01/2024 [facility] - Occupational Stress Questionnaire Answer [...] any time in the past 12 m [facility], were you homeless or [...] IV fluids normal saline daily via port. 42996 mL 08/03/2024 4 sulfamethoxazole- trimethoprim DS (BACTRIM DS, SEPTRA DS) 800-160 MG TabletIndications :Metastatic melanoma (HCC) Take 1 Tablet by mouth 2 times daily for 10 doses. 10 Tablet 08/10/2024 4 documented as of this encounter Plan of Treatment Upcoming Encounters Date Type Department Care Team (Late st Contact Info) Description 11/15/2024 1:00 PM BIOSTATISTICS MANAGER [facility] 1 [place] [address] Markus Finley MD [address] [place] [address] 11/15/2024 2:00 PM BIOSTATISTICS MANAGER [facility]ointment [facility] 1 [place] [address] Markus Finley MD [address] [place] [address] Discharge Disposition: Discharged to home or Selfcare [...] AM T: ??08/16/2024 11:30 AM Report ID: [id number] Reading Location: ??[id number] Procedure Note Zachariah Carrizales MD - 08/16/2024 [...] Zachariah Carrizales M.D. LB: KRUNAL Report ID: [id number] Reading Location: [place] [address] IMPRESSION: Hypermetabolic left inguinal lymph node measuring [...] Dose documented in this encounter Care Teams Inspector Watch Train Relationship Specialty Start Date End Date Pritesh Chu MD [address] [place] [address] PCP - General Family Medicine 04/18/24 Markus Finley MD [address] [place] [address] Consulting Physician Medical Oncology 04/18/24 documented as of this encounter
--- OUTSIDE RECORDS SUMMARY | 2024-10-26 10:54 | XMS_ITS | Encounter Summary ---
Author Organization [facility] Address [address] [place] [address] Phone Care Team Providers Care Child Protection Specialist Name Role Phone Pritesh Chu MD Primary Care Provider [phone] Markus Finley MD Unavailable [phone] Encounter Details Date Type Department Care Team (Late st Contact Info) Description 08/07/2024 Patient Outreach [facility] Technician Management [address] [place], [place] [address] Lucille Lawson RN [place] Social History Tobacco Use Types Packs/Day Years Used Date Smoking Tobacco: Former Cigarettes 0.5 8.5 S tarted: 04/18/2016 Smokeless Tobacco: Never Alcohol Use Standard Drinks/Week Comments Yes 0 (1 standard drink = 0.6 oz pur e alcohol) [facility] Utilities Answer Date Recorded In the past 12 months has [employer], gas, oil, or water company threatened to [...] declined 08/01/2024 How often do you attend jainism or holiness serv ices? Patient declined 08/01/2024 Do you [...] medical care, and heating? Patient declined 08/01/2024 [facility] - Occupational [...] st Contact Info) Description 11/15/2024 1:00 PM SURVEY CREW CHIEF [facility] [address] [place] [address] Markus Finley MD [address] [place] [address] 11/15/2024 2:00 PM SURVEY CREW CHIEF [facility] [address] [place] [address] Markus Finley MD [address] [place] [address] Discharge Disposition: Discharged to home or Selfcare documented as of this encounter Visit Diagnoses Not on filedocumented in this encounter Care Teams Child Protection Specialist Relationship Specialty Start Date End Date Pritesh Chu MD [address] [address] PCP - General Family Medicine 04/18/24 Markus Finley MD [address] [place] [address] Consulting Physician Medical Oncology 04/18/24 documented as of this encounter"
--- OUTSIDE RECORDS SUMMARY | 2024-10-26 10:54 | XMS_ITS | Encounter Summary ---
Author Organization [facility] Address [address] [place] [address] Phone Care Team Providers Care Kettle Worker Name Role Phone Pritesh Chu MD Primary Care Provider [phone] Markus Finley MD Unavailable [phone] Reason for Referral * Radiology Services (Routine) - Closed Specialty Diagnoses / Procedures Referred By Delbert villareal Referred To Contact Radiology Diagnoses Metastatic melanoma (HCC) Procedures PET CT TUMOR IMAGING WHOLE BODY Markus Finley MD [address] [place] [address] Phone: tel: fax: Referral ID Status Reason Start Date Expiration Date Visits Re quested Visits Authorized [id number] Closed 08/06/2024 1 1 Reason for Visit * Reason Comments Follow-up Encounter Details Date Type Department Care Team (Latest Contact Info) Description 08/06/2024 10:40 AM CDT Office Visit [facility] Oncology Services [address] [place] [address] Markus Finley MD [address] [place] [address] Metastatic melanoma (HCC) (Primary Dx); Hypothyroidism due [...] drink = 0.6 oz pur e alcohol) [facility] Cyanities Answer Date Recorded In the past 12 months has th e electric, gas, oil, or water [employer] threatened to shut off services in your home? Patient declined 08/01/2024 Social Connection and Isolation Panel [NHANES] A nswer Date Recorded In a typical week, how many times do you talk on the phone with family, friends, or neighbors? Patient declined 08/01/2024 How often do you get togethe r with friends or relatives? Patient declined 08/01/2024 How often do you attend anabaptism or sabianist serv ices? Patient declined 08/01/2024 [...] medical care, and heating? Patient declined 08/01/2024 [facility] of Occupat ional Health - Occupational Stress [...] any time in the past 12 m [facility], were you homeless or living [...] called Chris. Patient was recently admitted to [facility] from 07/25/24 through 07/30/24 and 08/02/24 [...] Yervoy and Opdivo on 07/17/24 --admitted to [facility] from 07/25/24 through 07/30/24 and 08/02/24 [...] IMAGING STUDIES: CT abdomen pelvis done at [facility] on 06/27/2024 No evidence of appendicitis. No [...] called Chris. Patient was recently admitted to [facility] from 07/25/24 through 07/30/24 and 08/02/24 [...] 4 of Christoph on 07/17/24 --admitted to [facility] from 07/25/24 through 07/30/24 and 08/02/24 [...] IMAGING STUDIES: CT abdomen pelvis done at [facility] on 06/27/2024 No evidence of appendicitis. No [...] her PET scan per patient's request at [facility] this time to evaluate response in the [...] st Contact Info) Description 11/15/2024 1:00 PM MECHANIC FOREMAN Lab [facility] Laboratory Services [address] [place] [address] Markus Finley MD [address] [place] [address] 11/15/2024 2:00 PM MECHANIC FOREMAN Appointment [facility] MRI 1 [place] [address] Markus Finley MD [address] [place] [address] Discharge Disposition: Discharged to home or Selfcare [...] AM T: ??08/16/2024 11:30 AM Report ID: [id number] Reading Location: ??[id number] Procedure Note Zachariah Carrizales MD - 08/16/2024 [...] Zachariah Carrizales M.D. LB: KRUNAL Report ID: [id number] Reading Location: [id number] IMPRESSION: Hypermetabolic left inguinal lymph node measuring [...] unspecified documented in this encounter Care Teams Kettle Worker Relationship Specialty Start Date End Date Pritesh Chu MD [address] [place] [address] PCP - General Family Medicine 04/18/24 Markus Finley MD [address] [place] [address] Consulting Physician Medical Oncology 04/18/24 documented as of this encounter
--- OUTSIDE RECORDS SUMMARY | 2024-10-26 10:55 | XMS_ITS | Encounter Summary ---
Author Organization [facility] Address [address] [facility] [place] [address] Phone Care Team Providers Care Border Police Name Role Phone Pritesh Chu MD Primary Care Provider [phone] Markus Finley MD Unavailable Encounter Details Date Type Department Care Team (Latest Contact Info) Description 07/06/2024 9:30 AM CDT Clinical Support [facility] Oncology Services [address] [place] [address] Markus Finley MD [address] [place] [address] Hypokalemia due to excessive gastrointestinal loss of [...] often do you attend chur ch or moravian services? Never 06/27/2024 Do you belong to [...] heating? Not hard at all 06/27/2024 [facility] of Occupat ional Health - Occupational [...] a [place] (including now)? No 06/27/2024 Comments No Sex [...] Contact Info) Description 11/15/2024 1:00 PM FRUIT CANNER [facility] 1 [place] [address] Markus Finley MD [address] [place] [address] 11/15/2024 2:00 PM FRUIT CANNER [facility]ment [facility] 1 [place] [address] Markus Finley MD [address] [place] [address] Discharge Disposition: Discharged to home or Selfcare documented as of this encounter Procedures Procedure Name Priority Date/Time Associated Diagnosis Comments CMP (COMPREHENSIVE METABOLIC PANEL) STAT 07/06/2024 10:19 AM CDT documented in this encounter Results * (ABNORMAL) CMP (Comprehensive Metabolic Panel) (07/06/2024 10:19 AM CDT) SODIUM 131(L) 136 - 145 mmol/L 07/06/2024 11:13 AM CDT [facility] POTASSIUM 2.7(LL) 3.5 - 5.1 mmol/L 07/06/2024 11:13 AM CDT [facility] CHLORIDE 105 98 - 107 mmol/L 07/06/2024 11:13 AM CDT [facility] CO2, VENOUS 17(L) 22 - 30 mmol/L 07/06/2024 11:13 AM CDT [facility] ANION GAP 11.7 <18.0 mmol/L 07/06/2024 11:13 AM [facility] GLUCOSE 143(H) 70 - 99 mg/dL 07/06/2024 11:13 AM T [facility] BUN 8 5 - 18 mg/dL 07/06/2024 11:13 AM [facility] CREATININE, BLOOD 0.99 0.60 - 1.00 mg/dL 07/06/2024 11:13 AM T [facility] BUN/CREATININE RATIO 8(L) 12 - 20 ratio 07/06/2024 11:13 AM [facility] TOTAL PROTEIN 6.2(L) 6.3 - 8.2 g/dL 07/06/2024 11:13 AM [facility] ALBUMIN 3.5 3.5 - 5.0 g/dL 07/06/2024 11:13 AM [facility] A/G RATIO 1.3 1.0 - 2.2 07/06/2024 11:13 AM [facility] CALCIUM 9.0 8.7 - 10.5 mg/dL 07/06/2024 11:13 AM [facility] T BILI 0.5 0.2 - 1.2 mg/dL 07/06/2024 11:13 AM [facility] SGOT (AST) 24 5 - 34 U/L 07/06/2024 11:13 AM [facility] SGPT (ALT) 50 0 - 55 U/L 07/06/2024 11:13 AM [facility] ALKALINE PHOSPHATASE 57 40 - 150 U/L 07/06/2024 11:13 AM [facility] GFR, ESTIMATED >60 >=60 07/06/2024 11:13 AM [facility] Comment: Creatinine Clearance is the preferred criteria for selecting drug dose adjustments in renally impaired patients. ??The GFR is provided as additional pertinent clinical information. GFR is reported in mL/min/1.73 sq m. Calculation based on the Chronic Kidney Disease Epidemiology Collaboration (CKD- EPI) equation refit without adjustment for race. GFR, EST. >60 >=60 024 11:13 AM CDT [facility] GFR, EST. NONAFRICAN >60 >=60 07/06/2024 11:13 AM CDT [facility] Blood Sub-Q Port Venou s Access Device (Medi-Port, Implanted Port) / Unknown 07/06/2024 10:19 AM CDT 07/06/2024 10:19 AM CDT us Markus Finley MD CHEMISTRY ORDERABLES Fin al Result [facility] [address] [place] [address] documented in this encounter Visit Diagnoses Diagnosis [...] Units documented in this encounter Care Teams Border Police Relationship Specialty Start Date End Date Pritesh Chu MD [address] [address] PCP - General Family Medicine 04/18/24 Markus Finley MD [address] [place] [address] Consulting Physician Medical Oncology 04/18/24 documented as of this encounter
--- OUTSIDE RECORDS SUMMARY | 2024-10-26 10:55 | XMS_ITS | Encounter Summary ---
Author Organization [facility] Address [address] [place] [address] Phone Care Team Providers Care Security System Technician Name Role Phone Pritesh Chu MD Primary Care Provider [phone] Markus Finley MD Unavailable [phone] Encounter Details Date Type Department Care Team (Late st Contact Info) Description 05/18/2024 Documentation Only [facility] Oncology Services [address] [place] [phone] Markus Finley MD [address] [place] [address] Social History Tobacco Use Types Packs/Day Years [...] st Contact Info) Description 11/15/2024 1:00 PM SAW MAN Lab [facility] 1 [facility] [place] [address] Markus Finley MD [address] [place] [address] 11/15/2024 2:00 PM SAW MAN [facility]ment [facility] 1 [place] [address] Markus Finley MD [address] [place] [address] Discharge Disposition: Discharged to home or Selfcare documented as of this encounter Visit Diagnoses Not on filedocumented in this encounter Care Teams Security System Technician Relationship Specialty Start Date End Date Pritesh Chu MD [address] [place], [place] [id number] PCP - General Family Medicine 04/18/24 Markus Finley MD [address] [place] [address] Consulting Physician Medical Oncology 04/18/24 documented as of this encounter
--- OUTSIDE RECORDS SUMMARY | 2024-10-26 10:55 | XMS_ITS | Encounter Summary ---
Author Organization [facility] Care Team Providers Care Tape Recording Machine Operator Name Role Phone Pritesh Chu MD Primary Care Provider [phone] Markus Finley MD Unavailable [phone] Encounter Details Date Type Department Care Team [...] st Contact Info) Description 11/15/2024 1:00 PM MOUNTAIN GUIDE Lab [facility] Laboratory Services [address] [place] [address] Markus Finley MD [address] [place] [address] 11/15/2024 2:00 PM MOUNTAIN GUIDE Appointment [facility] MRI [address] [place] [address] Markus Finley MD [address] [place] [address] Discharge Disposition: Discharged to home or Selfcare documented as of this encounter Visit Diagnoses Not on filedocumented in this encounter Care Teams Tape Recording Machine Operator Relationship Specialty Start Date End Date Pritesh Chu MD [address] [place] [address] PCP - General Family Medicine 04/18/24 Markus Finley MD [address] [place] [address] Consulting Physician Medical Oncology 04/18/24 documented as of this encounter
--- OUTSIDE RECORDS SUMMARY | 2024-10-26 10:55 | XMS_ITS | Encounter Summary ---
Author Organization [facility] Address [address] [facility] [place] [address] Phone Care Team Providers Care Sighter Name Role Phone Pritesh Chu MD Primary Care Provider [phone] Markus Finley MD Unavailable [phone] Encounter Details Date Type Department Care Team (Latest Contact Info) Description 07/10/2024 1:00 PM CDT Clinical Support [facility] - Cancer Center Oncology Services [address] [place] [phone] Jenn Medellin Ed[place], PAC [address] [place] [address] Metastatic melanoma (HCC); Hypokalemia due to excessive gastrointestinal loss of potassium Discharge Disposition: Discharged to home or Selfcare Social History Tobacco Use Types Packs/Day Years Used Date Smoking Tobacco: Former Cigarettes 0.5 8.5 S tarted: 04/18/2016 Smokeless Tobacco: Never Alcohol Use Standard Drinks/Week Comments Yes 0 (1 standard drink = 0.6 oz pur e alcohol) [facility] Utilities Answer Date Recorded In the past 12 months has [employer], gas, oil, or water company threatened to [...] often do you attend chur ch or bahai services? Never 06/27/2024 Do you belong to [...] and heating? Not hard at all 06/27/2024 [facility] of Occupat ional [facility] - Occupational Stress Questionnaire Answer Date Recorded [...] living in a skilled nursing (including now)? No 06/27/2024 Comments No Sex [...] st Contact Info) Description 11/15/2024 1:00 PM RADIOPHONE OPERATOR [facility] [address] [place] [address] Markus Finley MD [address] [place] [address] 11/15/2024 2:00 PM RADIOPHONE OPERATOR [facility]ment [facility] [address] [place] [address] Markus Finley MD [address] [place] [address] Discharge Disposition: Discharged to home or Selfcare documented as of this encounter Procedures Procedure Name Priority Date/Time Associated Diagnosis Comments CMP (COMPREHENSIVE METABOLIC PANEL) STAT 07/10/2024 1:28 PM CDT Metastatic melanoma (HCC) documented in this encounter Results * (ABNORMAL) CMP (COMPREHENSIVE METABOLIC PANEL) (07/10/2024 1:28 PM CDT) SODIUM 133(L) 136 - 145 mmol/L 07/10/2024 1:53 PM CDT [facility] POTASSIUM 3.9 3.5 - 5.1 mmol/L 07/10/2024 1:53 PM CDT [facility] CHLORIDE 109(H) 98 - 107 mmol/L 07/10/2024 1:53 PM CDT [facility] CO2, VENOUS 18(L) 22 - 30 mmol/L 07/10/2024 1:53 PM CDT [facility] ANION GAP 9.9 <18.0 mmol/L 07/10/2024 1:53 PM CDT [facility] GLUCOSE 143(H) 70 - 99 mg/dL 07/10/2024 1:53 PM CDT [facility] BUN 4(L) 5 - 18 mg/dL 07/10/2024 1:53 PM CDT [facility] CREATININE, BLOOD 0.85 0.60 - 1.00 mg/dL 07/10/2024 1:53 PM CDT [facility] BUN/CREATININE RATIO 5(L) 12 - 20 ratio 07/10/2024 1:53 PM CDT [facility] TOTAL PROTEIN 5.8(L) 6.3 - 8.2 g/dL 07/10/2024 1:53 PM CDT [facility] ALBUMIN 3.3(L) 3.5 - 5.0 g/dL 07/10/2024 1:53 PM CDT [facility] A/G RATIO 1.3 1.0 - 2.2 07/10/2024 1:53 PM CDT [facility] CALCIUM 8.6(L) 8.7 - 10.5 mg/dL 07/10/2024 1:53 PM CDT [facility] T BILI 0.4 0.2 - 1.2 mg/dL 07/10/2024 1:53 PM CDT [facility] SGOT (AST) 20 5 - 34 U/L 07/10/2024 1:53 PM CDT [facility] SGPT (ALT) 44 0 - 55 U/L 07/10/2024 1:53 PM CDT [facility] ALKALINE PHOSPHATASE 74 40 - 150 U/L 07/10/2024 1:53 PM CDT [facility] IS THE PATIENT REQUIRED TO BE FASTING? No 07/10/2024 1:53 PM CDT [facility] GFR, ESTIMATED >60 >=60 07/10/2024 1:53 PM CDT [facility] Comment: Creatinine Clearance is the preferred criteria for selecting drug dose adjustments in renally impaired patients. ??The GFR is provided as additional pertinent clinical information. GFR is reported in mL/min/1.73 sq m. Calculation based on the Chronic Kidney Disease Epidemiology Collaboration (CKD- EPI) equation refit without adjustment for race. GFR, EST. >60 >=60 024 1:53 PM CDT [facility] GFR, EST. NONAFRICAN >60 >=60 07/10/2024 1:53 PM CDT [facility] Blood Sub-Q Port Venou s Access Device (Medi-Port, Implanted Port) / Unknown 07/10/2024 1:28 PM CDT 07/10/2024 1:28 PM CDT us Markus Finley MD CHEMISTRY ORDERABLES Jacob al Result [facility] [address] [place] [address] documented in this encounter Visit Diagnoses Diagnosis [...] mEq documented in this encounter Care Teams Sighter Relationship Specialty Start Date End Date Pritesh Chu MD [address] [place] [address] PCP - General Family Medicine 04/18/24 Markus Finley MD [address] [place] [address] Consulting Physician Medical Oncology 04/18/24 documented as of this encounter
--- OUTSIDE RECORDS SUMMARY | 2024-10-26 10:55 | XMS_ITS | Encounter Summary ---
Author Organization [facility] Address [address] [place] [address] Phone Care Team Providers Care Baker Operator Automatic Name Role Phone Pritesh Chu MD Primary Care Provider [phone] Markus Finley MD Unavailable [phone] Reason for Visit * Reason Comments Follow-up Encounter Details Date Type Department Care Team (Late st Contact Info) Description 07/03/2024 9:00 AM CDT [facility] [address] [place] [phone] Markus Finley MD [address] [place] [address] Metastatic melanoma (HCC) (Primary Dx); Functional diarrhea; [...] drink = 0.6 oz pur e alcohol) [facility] Utilities Answer Date Recorded [...] often do you attend chur ch or shinto services? Never 06/27/2024 Do you belong to [...] and heating? Not hard at all 06/27/2024 [facility]at ional Health - Occupational [...] living in a half-way (including now)? No 06/27/2024 Comments No Sex [...] on 05/01/24. She was recently admitted to [facility] for fever with associated nausea with [...] on 05/01/24. She was recently admitted to [facility] for fever with associated nausea with [...] go to exchange after hours. 9. Check [id number] in the blood today. Tempus XT on [...] st Contact Info) Description 11/15/2024 1:00 PM VAT OVERHAULER Lab [facility] 1 [place] [address] Markus Finley MD [address] [place] [address] 11/15/2024 2:00 PM VAT OVERHAULER Appointment [facility] 1 [facility] [place] [address] Markus Finley MD [address] [place] [address] Discharge Disposition: Discharged to home or Selfcare [...] ORDERABLES Fin al Result Performing Organization Address City/State/[facility] Co de Phone Number SCAN * CMP (COMPREHENSIVE METABOLIC PANEL) (07/16/2024 12:00 AM CDT) Markus Finley MD CHEMISTRY ORDERABLES Fin al Result SCAN * THYROID STIMULATING HORMONE (TSH) (07/16/2024 12:00 AM CDT) Markus Finley MD CHEMISTRY ORDERABLES Fin al Result Performing Organization Address City/State/[facility] Co de Phone Number SCAN * CMP (COMPREHENSIVE METABOLIC PANEL) (07/16/2024 12:00 AM CDT) Markus Finley MD CHEMISTRY ORDERABLES Fin al Result Performing Organization Address City/State/[facility] Co de Phone Number SCAN * COMPLETE BLOOD COUNT (CBC) WITH DIFF (07/16/2024 12:00 AM CDT) Markus Finley MD HEMATOLOGY ORDERABLES Fi nal Result Performing Organization Address City/[facility] Co de Phone Number SCAN * ADRENOCORTICOTROPIC HORMONE, P, MILLER ACTH (07/03/2024 10:29 AM CDT) ADRENOCORTICOTROPIC HORMONE (ACTH) 8.7 pg/mL 07/04/2024 12:18 PM CDT [facility] [employer] Comment: REFERENCE VALUE 7.2-63 (a.m. collection) Test Performed by: [facility] [address] [place] [address] Water Gas Operator: Ernie Page Ph.D.; CLIA# [id number] Blood Sub-Q Port Venou s Access Device (Medi-Port, Implanted Port) / Unknown 07/03/2024 10:29 AM CDT 07/03/2024 10:29 AM CDT Markus Finley MD LAB SEND OUTS Final Re sult Performing Organization Address City/[facility]/ZIP Co de Phone Number [facility] US * (ABNORMAL) THYROXINE (T4) FREE (07/03/2024 10:29 AM CDT) T4 FREE <0.4(L) 0.7 - 1.9 ng/dL 07/03/2024 11:55 AM CDT [facility] Blood Sub-Q Port Venou s Access Device (Medi-Port, Implanted Port) / Unknown 07/03/2024 10:29 AM CDT 07/03/2024 10:29 AM CDT Result [facility] Markus Finley MD CHEMISTRY ORDERABLES Fin al Result Performing Organization Address [facility] Co de Phone Number [facility] [address] [place] [address] * CORTISOL (07/03/2024 10:29 AM CDT) CORTISOL 18.9 mcg/dL 07/03/2024 11:32 AM CDT [facility] Blood Sub-Q Port Venou s Access Device (Medi-Port, Implanted Port) / Unknown 07/03/2024 10:29 AM CDT 07/03/2024 10:29 AM CDT Narrative [facility] - 07/03/2024 11:32 AM CDT AM: ??4 TO 19 mcg/dL PM: ??Approx. Half of AM Value ?? Markus Finley MD CHEMISTRY ORDERABLES Fin al Result Performing Organization Address City/[facility]/ZIP Co de Phone Number [facility] [address] [place] [address] * (ABNORMAL) TRIIODOTHYRININE (T3) FREE (07/03/2024 10:29 AM CDT) FREE T3 <1.5(L) 1.6 - 3.9 pg/mL 07/03/2024 4:27 PM CDT [facility] Blood Sub-Q Port Venou s Access Device (Medi-Port, Implanted Port) / Unknown 07/03/2024 10:29 AM CDT 07/03/2024 10:29 AM CDT Markus Finley MD CHEMISTRY ORDERABLES Fin al Result Performing Organization Address [facility] Co de Phone Number [facility] [address] [place] [address], * (ABNORMAL) THYROID STIMULATING HORMONE (TSH) (07/03/2024 10:29 AM CDT) TSH 42.415(H) 0.300 - 5.000 mIU/L 07/03/2024 11:32 AM CDT [facility] Blood Sub-Q Port Venou s Access Device (Medi-Port, Implanted Port) / Unknown 07/03/2024 10:29 AM CDT 07/03/2024 10:29 AM CDT Markus Finley MD CHEMISTRY ORDERABLES Fin al Result Performing Organization Address City/[facility] Co de Phone Number [facility] [address] [place] [address] * (ABNORMAL) CMP (COMPREHENSIVE METABOLIC PANEL) (07/03/2024 10:29 AM CDT) SODIUM 125(L) 136 - 145 mmol/L 07/03/2024 11:17 AM CDT [facility] POTASSIUM 3.0(L) 3.5 - 5.1 mmol/L 07/03/2024 11:17 AM T [facility] CHLORIDE 99 98 - 107 mmol/L 07/03/2024 11:17 AM T [facility] CO2, VENOUS 12(L) 22 - 30 mmol/L 07/03/2024 11:17 AM CDT [facility] ANION GAP 17.0 <18.0 mmol/L 07/03/2024 11:17 AM CDT [facility] GLUCOSE 150(H) 70 - 99 mg/dL 07/03/2024 11:17 AM T [facility] BUN 23(H) 5 - 18 mg/dL 07/03/2024 11:17 AM [facility] CREATININE, BLOOD 1.55(H) 0.60 - 1.00 mg/dL 07/03/2024 11:17 AM T [facility] BUN/CREATININE RATIO 15 12 - 20 ratio 07/03/2024 11:17 AM [facility] TOTAL PROTEIN 7.7 6.3 - 8.2 g/dL 07/03/2024 11:17 AM T [facility] ALBUMIN 4.2 3.5 - 5.0 g/dL 07/03/2024 11:17 AM [facility] A/G RATIO 1.2 1.0 - 2.2 07/03/2024 11:17 AM CDT [facility] CALCIUM 9.4 8.7 - 10.5 mg/dL 07/03/2024 11:17 AM T [facility] T BILI 0.9 0.2 - 1.2 mg/dL 07/03/2024 11:17 AM CDT [facility] SGOT (AST) 28 5 - 34 U/L 07/03/2024 11:17 AM CDT [facility] SGPT (ALT) 64(H) 0 - 55 U/L 07/03/2024 11:17 AM CDT [facility] ALKALINE PHOSPHATASE 79 40 - 150 U/L 07/03/2024 11:17 AM CDT [facility] IS THE PATIENT REQUIRED TO BE FASTING? No 07/03/2024 11:17 AM CDT [facility] GFR, ESTIMATED 48(L) >=60 07/03/2024 11:17 AM CDT [facility] Comment: Creatinine Clearance is the preferred criteria for selecting drug dose adjustments in renally impaired patients. ??The GFR is provided as additional pertinent clinical information. GFR is reported in mL/min/1.73 sq m. Calculation based on the Chronic Kidney Disease Epidemiology Collaboration (CKD- EPI) equation refit without adjustment for race. GFR, EST. 50(L) >=60 024 11:17 AM CDT [facility] GFR, EST. NONAFRICAN 41(L) >=60 07/03/2024 11:17 AM CDT [facility] Blood Sub-Q Port Venou s Access Device (Medi-Port, Implanted Port) / Unknown 07/03/2024 10:29 AM CDT 07/03/2024 10:29 AM CDT us Markus Finley MD CHEMISTRY ORDERABLES Fin al Result [facility] [address] [place] [address] documented in this encounter Visit Diagnoses Diagnosis Metastatic melanoma (HCC)- Primary Melanoma of skin, site unspecified Functional diarrhea Hypotension due to drugs Other iatrogenic hypotension Diarrhea due to drug Diarrhea Immunotherapy Reserved for inherently not codable concepts WITHOUT codable children Dizziness Dizziness and giddiness documented in this encounter Care Teams Baker Operator Automatic Relationship Specialty Start Date End Date Pritesh Chu MD [address] [address] PCP - General Family Medicine 04/18/24 Markus Finley MD [address] [place] [address] Consulting Physician Medical Oncology 04/18/24 documented as of this encounter
--- OUTSIDE RECORDS SUMMARY | 2024-10-26 10:55 | XMS_ITS | Encounter Summary ---
Author Organization [facility] Address [address] [facility] [place] [address] Phone Care Team Providers Care Structural Test Engineer Name Role Phone Pritesh Chu MD Primary Care Provider [phone] Markus Finley MD Unavailable [phone] Encounter Details Date Type Department Care Team (Late st Contact Info) Description 06/20/2024 Telephone [facility] - Cancer Center Oncology Services [address] [place] [address] Jennifre Bellamy, ANGLE ROLL OPERATOR [place] Social History Tobacco Use Types Packs/Day Years [...] st Contact Info) Description 11/15/2024 1:00 PM MUSEUM CURATOR Lab [facility] Services [address] [place] [address] Markus Finley MD [address] [place] [address] 11/15/2024 2:00 PM MUSEUM CURATOR Appointment [facility] MRI [address] [place] [address] Markus Finley MD [address] [place] [address] Discharge Disposition: Discharged to home or Selfcare documented as of this encounter Visit Diagnoses Not on filedocumented in this encounter Care Teams Structural Test Engineer Relationship Specialty Start Date End Date Pritesh Chu MD [address] [place] [address] PCP - General Family Medicine 04/18/24 Markus Finley MD [address] [place] [address] Consulting Physician Medical Oncology 04/18/24 documented as of this encounter
--- OUTSIDE RECORDS SUMMARY | 2024-10-26 10:55 | XMS_ITS | Encounter Summary ---
Author Organization [facility] Address [address] [facility] [place] [address] Phone Care Team Providers Care Associate Store Director Name Role Phone Pritesh Chu MD Primary Care Provider [phone] Markus Finley MD Unavailable [phone] Encounter Details Date Type Department Care Team (Late st Contact Info) Description 07/04/2024 10:30 AM CDT Clinical Support [facility] - Cancer Center Oncology Services [address] [place] [id number] Markus Finley MD [address] [place] [address] Metastatic melanoma (HCC) Discharge Disposition: Discharged to home or Selfcare Social History Tobacco Use Types Packs/Day Years Used Date Smoking Tobacco: Former Cigarettes 0.5 8.5 S tarted: 04/18/2016 Smokeless Tobacco: Never Alcohol Use Standard Drinks/Week Comments Yes 0 (1 standard drink = 0.6 oz pur e alcohol) [facility] Utilities Answer Date Recorded In the past 12 months has [employer], gas, oil, or water [employer] threatened to shut off services in [...] often do you attend chur ch or mandaen services? Never 06/27/2024 Do you belong to [...] and heating? Not hard at all 06/27/2024 [facility] of Occupat ional [...] time in the past 12 m [facility], were you homeless or living in a [...] 80mg of prednisone this morning. Patient to picker tender potassium from the pharmacy tonight. Patient to take 20mEq tonight and then take it twice daily starting tomorrow. Labs to be rechecked tomorrow. Port flushed with heparin and needle removed. Bandaid applied to site. Patient left treatment area in stable condition. documented in this encounter Plan of Treatment Upcoming Encounters Date Type Department Care Team (Late st Contact Info) Description 11/15/2024 1:00 PM DOCK SUPERVISOR Lab [facility] [address] [place] [address] Markus Finley MD [address] [place] [address] 11/15/2024 2:00 PM DOCK SUPERVISOR [facility]ointment [facility] [address] [place] [address] Markus Finley MD [address] [place], [place] [id number] Discharge Disposition: Discharged to home or Selfcare documented as of this encounter Procedures Procedure Name Priority Date/Time Associated Diagnosis Comments CMP (COMPREHENSIVE METABOLIC PANEL) STAT 07/04/2024 10:53 AM CDT Metastatic melanoma (HCC) documented in this encounter Results * (ABNORMAL) CMP (COMPREHENSIVE METABOLIC PANEL) (07/04/2024 10:53 AM CDT) SODIUM 128(L) 136 - 145 mmol/L 07/04/2024 11:[address] POTASSIUM 2.7(LL) 3.5 - 5.1 mmol/L 07/04/2024 11:[address] CHLORIDE 102 98 - 107 mmol/L 07/04/2024 11:[address] CO2, VENOUS 17(L) 22 - 30 mmol/L 07/04/2024 11:41 AM T [facility] ANION GAP 11.7 <18.0 mmol/L 07/04/2024 11:41 AM T [facility] GLUCOSE 150(H) 70 - 99 mg/dL 07/04/2024 11:41 AM CDT [facility] BUN 11 5 - 18 mg/dL 07/04/2024 11:41 AM CDT [facility] CREATININE, BLOOD 1.00 0.60 - 1.00 mg/dL 07/04/2024 11:41 AM T [facility] BUN/CREATININE RATIO 11(L) 12 - 20 ratio 07/04/2024 11:41 AM T [facility] TOTAL PROTEIN 6.5 6.3 - 8.2 g/dL 07/04/2024 11:41 AM T [facility] ALBUMIN 3.6 3.5 - 5.0 g/dL 07/04/2024 11:41 AM T [facility] A/G RATIO 1.2 1.0 - 2.2 07/04/2024 11:41 AM T [facility] CALCIUM 8.8 8.7 - 10.5 mg/dL 07/04/2024 11:41 AM [facility] T BILI 0.7 0.2 - 1.2 mg/dL 07/04/2024 11:41 AM T [facility] SGOT (AST) 19 5 - 34 U/L 07/04/2024 11:41 AM T [facility] SGPT (ALT) 50 0 - 55 U/L 07/04/2024 11:41 AM T [facility] ALKALINE PHOSPHATASE 67 40 - 150 U/L 07/04/2024 11:41 AM T [facility] IS THE PATIENT REQUIRED TO BE FASTING? No 07/04/2024 11:41 AM CDT [facility] GFR, ESTIMATED >60 >=60 07/04/2024 11:[address] Comment: Creatinine Clearance is the preferred criteria for selecting drug dose adjustments in renally impaired patients. ??The GFR is provided as additional pertinent clinical information. GFR is reported in mL/min/1.73 sq m. Calculation based on the Chronic Kidney Disease Epidemiology Collaboration (CKD- EPI) equation refit without adjustment for race. GFR, EST. >60 >=60 024 11:[address] GFR, EST. NONAFRICAN >60 >=60 07/04/2024 11:[address] Blood Sub-Q Port Venou s Access Device (Medi-Port, Implanted Port) / Unknown 07/04/2024 10:53 AM CDT 07/04/2024 10:54 AM CDT Markus Luana Finley MD CHEMISTRY ORDERABLES Fin al Result [facility] [address] [place] [address] documented in this encounter Visit Diagnoses Diagnosis [...] mEq documented in this encounter Care Teams Associate Store Director Relationship Specialty Start Date End Date Pritesh Chu MD [address] [place] [address] PCP - General Family Medicine 04/18/24 Markus Finley MD [address] [place] [address] Consulting Physician Medical Oncology 04/18/24 documented as of this encounter
--- OUTSIDE RECORDS SUMMARY | 2024-10-26 10:55 | XMS_ITS | Encounter Summary ---
Author Organization [employer] Care Team Providers Care Bandmill Operator Name Role Phone Pritesh Chu MD Primary Care Provider [phone] Markus Finley MD Unavailable [phone] Encounter Details Date Type Department Care Team (Latest Contact Info) Description 07/12/2024 Travel Social History Tobacco Use Types Packs/Day Years Used Date Smoking Tobacco: Former Cigarettes 0.5 8.5 S tarted: 04/18/2016 Smokeless Tobacco: Never Alcohol Use Standard Drinks/Week Comments Yes 0 (1 standard drink = 0.6 oz pur e alcohol) [facility] Utilities Answer Date Recorded In the past 12 months has [employer], gas, oil, or water [employer] threatened to shut off services in [...] often do you attend chur ch or methodist services? Never 06/27/2024 Do you belong to any clubs o r organizations such as mormon groups, unions, fraternal or athletic groups, or [...] and heating? Not hard at all 06/27/2024 [facility] of Occupat ional Health - Occupational Stress [...] the past 12 m [facility], were you homeless or living in a assisted (including now)? No 06/27/2024 Comments No Sex [...] st Contact Info) Description 11/15/2024 1:00 PM TARIFF PUBLISHING AGENT Lab [facility] [address] [place] [address] Markus Finley MD [address] [place] [address] 11/15/2024 2:00 PM TARIFF PUBLISHING AGENT [facility]ment [facility] [address] [place] [address] Markus Finley MD [address] [place] [address] Discharge Disposition: Discharged to home or Selfcare documented as of this encounter Visit Diagnoses Not on filedocumented in this encounter Care Teams Bandmill Operator Relationship Specialty Start Date End Date Pritesh Chu MD [address] [place] [address] PCP - General Family Medicine 04/18/24 Markus Finley MD [address] [place] [address] Consulting Physician Medical Oncology 04/18/24 documented as of this encounter
--- OUTSIDE RECORDS SUMMARY | 2024-10-26 10:55 | XMS_ITS | Encounter Summary ---
Author Organization [facility] Address [address] [place] [address] Phone Care Team Providers Care Exceptional Student Education Teacher Name Role Phone Pritesh Chu MD Primary Care Provider [phone] Markus Finley MD Unavailable [phone] Encounter Details Date Type Department Care Team (Late st Contact Info) Description 06/26/2024 Telephone [facility] Oncology Services [address] [place] [phone] Markus Finley MD [address] [place] [address] Social History Tobacco Use Types Packs/Day Years Used Date Smoking Tobacco: Former Cigarettes 0.5 8.5 S tarted: 04/18/2016 Smokeless Tobacco: Never Alcohol Use Standard Drinks/Week Comments Yes 0 (1 standard drink = 0.6 oz pur e alcohol) [facility] Utilities Answer Date Recorded In [...] and heating? Not hard at all 06/27/2024 [facility] of Occupat ional Health - [...] any time in the past 12 m [facility], were you homeless or [...] st Contact Info) Description 11/15/2024 1:00 PM CORE ANALYSIS OPERATOR Lab [facility] Laboratory Services 1 [facility] [place] [address] Markus Finley MD [address] [place] [address] 11/15/2024 2:00 PM CORE ANALYSIS OPERATOR Appointment [facility] MRI 1 [facility] [place] [address] Markus Finley MD [address] [place] [address] Discharge Disposition: Discharged to home or Selfcare documented as of this encounter Visit Diagnoses Not on filedocumented in this encounter Care Teams Exceptional Student Education Teacher Relationship Specialty Start Date End Date Pritesh Chu MD [address] [address] PCP - General Family Medicine 04/18/24 Markus Finley MD [address] [place] [address] Consulting Physician Medical Oncology 04/18/24 documented as of this encounter
--- OUTSIDE RECORDS SUMMARY | 2024-10-26 10:55 | XMS_ITS | Encounter Summary ---
Author Organization [facility] Address [address] [facility] [place] [address] Phone Care Team Providers Care Yard Switcher Name Role Phone Pritesh Chu MD Primary Care Provider [phone] Markus Finley MD Unavailable [phone] Encounter Details Date Type Department Care Team (Late st Contact Info) Description 07/05/2024 9:00 AM CDT Clinical Support [facility] - [facility] Oncology Services [address] [place] [phone] Jenn Medellin [place], [address] [place] [address] Potassium (K) deficiency (Primary Dx); Metastatic melanoma (HCC) Discharge Disposition: Discharged to home or Selfcare Social History Tobacco Use Types Packs/Day Years Used Date Smoking Tobacco: Former Cigarettes 0.5 8.5 S tarted: 04/18/2016 Smokeless Tobacco: Never Alcohol Use Standard Drinks/Week Comments Yes 0 (1 standard drink = 0.6 oz pur e alcohol) [facility] Utilities Answer Date Recorded In the past 12 months has [employer], oil, or [employer] threatened to shut off services in your [...] often do you attend chur ch or confucianism services? Never 06/27/2024 Do you belong to [...] and heating? Not hard at all 06/27/2024 [facility] Answer Date [...] or living in a jail (including now)? No 06/27/2024 Comments No Sex [...] st Contact Info) Description 11/15/2024 1:00 PM ETCHER MACHINE [facility] [address] [place] [address] Markus Finley MD [address] [place] [address] 11/15/2024 2:00 PM ETCHER MACHINE [facility] 1 [place] [address] Markus Finley MD [address] [place], [place] [phone] Discharge Disposition: Discharged to home or Selfcare documented as of this encounter Procedures Procedure Name Priority Date/Time Associated Diagnosis Comments MAGNESIUM (MG) STAT 07/05/2024 9:24 AM CDT CMP (COMPREHENSIVE METABOLIC PANEL) STAT 07/05/2024 9:24 AM CDT Metastatic melanoma (HCC) documented in this encounter Results * MAGNESIUM (MG) (07/05/2024 9:24 AM CDT) MAGNESIUM 2.4 1.6 - 2.6 mg/dL 07/05/2024 10:33 AM CDT [facility] Blood Venipuncture / Unknown 07/05/2024 9:24 AM CDT 07/05/2024 10:21 AM CDT us Markus Finley MD CHEMISTRY ORDERABLES Fin al Result [facility] [address] [place] [address] * (ABNORMAL) CMP (COMPREHENSIVE METABOLIC PANEL) (07/05/2024 9:24 AM CDT) SODIUM 132(L) 136 - 145 mmol/L 07/05/2024 10:05 AM CDT [facility] POTASSIUM 2.6(LL) 3.5 - 5.1 mmol/L 07/05/2024 10:05 AM CDT [facility] CHLORIDE 107 98 - 107 mmol/L 07/05/2024 10:05 AM T [facility] CO2, VENOUS 16(L) 22 - 30 mmol/L 07/05/2024 10:05 AM T [facility] ANION GAP 11.6 <18.0 mmol/L 07/05/2024 10:05 AM T [facility] GLUCOSE 193(H) 70 - 99 mg/dL 07/05/2024 10:05 AM CDT [facility] BUN 7 5 - 18 mg/dL 07/05/2024 10:05 AM [facility] CREATININE, BLOOD 1.03(H) 0.60 - 1.00 mg/dL 07/05/2024 10:05 AM [facility] BUN/CREATININE RATIO 7(L) 12 - 20 ratio 07/05/2024 10:05 AM [facility] TOTAL PROTEIN 6.1(L) 6.3 - 8.2 g/dL 07/05/2024 10:05 AM T [facility] ALBUMIN 3.4(L) 3.5 - 5.0 g/dL 07/05/2024 10:05 AM [facility] A/G RATIO 1.3 1.0 - 2.2 07/05/2024 10:05 AM T [facility] CALCIUM 8.7 8.7 - 10.5 mg/dL 07/05/2024 10:05 AM T [facility] T BILI 0.6 0.2 - 1.2 mg/dL 07/05/2024 10:05 AM CDT [facility] SGOT (AST) 15 5 - 34 U/L 07/05/2024 10:05 AM CDT [facility] SGPT (ALT) 46 0 - 55 U/L 07/05/2024 10:05 AM CDT [facility] ALKALINE PHOSPHATASE 61 40 - 150 U/L 07/05/2024 10:05 AM CDT [facility] IS THE PATIENT REQUIRED TO BE FASTING? No 07/05/2024 10:05 AM CDT [facility] GFR, ESTIMATED >60 >=60 07/05/2024 10:05 AM CDT [facility] Comment: Creatinine Clearance is the preferred criteria for selecting drug dose adjustments in renally impaired patients. ??The GFR is provided as additional pertinent clinical information. GFR is reported in mL/min/1.73 sq m. Calculation based on the Chronic Kidney Disease Epidemiology Collaboration (CKD- EPI) equation refit without adjustment for race. GFR, EST. >60 >=60 024 10:05 AM CDT [facility] GFR, EST. NONAFRICAN >60 >=60 07/05/2024 10:05 AM CDT [facility] Blood Venipuncture / Unknown 07/05/2024 9:24 AM CDT 07/05/2024 9:24 AM CDT Markus Finley MD CHEMISTRY ORDERABLES Fin al Result [facility] [address] [place] [address] documented in this encounter Visit Diagnoses Diagnosis [...] mEq documented in this encounter Care Teams Yard Switcher Relationship Specialty Start Date End Date Pritesh Chu MD [address] [address] PCP - General Family Medicine 04/18/24 Markus Finley MD [address] [place] [address] Consulting Physician Medical Oncology 04/18/24 documented as of this encounter
--- OUTSIDE RECORDS SUMMARY | 2024-10-26 10:55 | XMS_ITS | Encounter Summary ---
Author Organization [email or web address] Care Team Providers Care Spare Person Name Role Phone Pritesh Chu MD Primary Care Provider [phone] Markus Finley MD Unavailable [phone] Encounter Details Date Type Department Care Team (Latest Contact Info) Description 07/23/2024 Travel Social History Tobacco Use Types Packs/Day Years Used Date Smoking Tobacco: Former Cigarettes 0.5 8.5 S tarted: 04/18/2016 Smokeless Tobacco: Never Alcohol Use Standard Drinks/Week Comments Yes 0 (1 standard drink = 0.6 oz pur e alcohol) [facility] Utilities Answer Date Recorded In the past 12 months has [employer], gas, oil, or water [employer] threatened to shut off services in your home? Patient declined 07/23/2024 Social Connection and Isolation Panel [NHANES] A nswer Date Recorded In a typical week, how many times do you talk on the phone with family, friends, or neighbors? Patient declined 07/23/2024 How often do you get togethe r with friends or relatives? Patient declined 07/23/2024 How often do you attend zoroastrian or faith serv ices? Patient declined 07/23/2024 Do you [...] medical care, and heating? Patient declined 07/23/2024 [facility] of Occupat ional Health - Occupational Stress [...] in the past 12 m [facility], were you homeless or living in a [facility] (including now)? Patient declined 07/23/2024 Comments No [...] st Contact Info) Description 11/15/2024 1:00 PM HOP FARM WORKER Lab [facility] 1 [facility] [place] [address] Markus Finley MD [address] [place] [address] 11/15/2024 2:00 PM HOP FARM WORKER [facility] 1 [place] [address] Markus Finley MD [address] [place] [address] Discharge Disposition: Discharged to home or Selfcare documented as of this encounter Visit Diagnoses Not on filedocumented in this encounter Additional Health Concerns Infection Onset Date Last Indicated Resolved Time COVID - 19 07/23/2024 07/23/2024 07/23/2024 10:3 8 AM CDT C. difficile Rule-Out 07/23/2024 07/24/20242023 1:43 AM CDT documented as of this encounter Care Teams Spare Person Relationship Specialty Start Date End Date Pritesh Chu MD [address] [place], [place] [id number] PCP - General Family Medicine 04/18/24 Markus Finley MD [address] [place] [address] Consulting Physician Medical Oncology 04/18/24 documented as of this encounter
--- OUTSIDE RECORDS SUMMARY | 2024-10-26 10:55 | XMS_ITS | Encounter Summary ---
Author Organization [email or web address] Care Team Providers Care Brigadier Name Role Phone Pritesh Chu MD Primary Care Provider [phone] Markus Finley MD Unavailable [phone] Encounter Details Date Type Department Care Team (Latest Contact Info) Description 07/17/2024 Travel Social History Tobacco Use Types Packs/Day Years Used Date Smoking Tobacco: Former Cigarettes 0.5 8.5 S tarted: 04/18/2016 Smokeless Tobacco: Never Alcohol Use Standard Drinks/Week Comments Yes 0 (1 standard drink = 0.6 oz pur e alcohol) [facility] Utilities Answer Date Recorded In the past 12 months has [email or web address], gas, oil, or water [employer] threatened to shut off services in your [...] often do you attend chur ch or mandaeism services? Never 06/27/2024 Do you belong to any clubs o r organizations such as scientology groups, unions, fraternal or athletic groups, or [...] and heating? Not hard at all 06/27/2024 [facility] of Occupat ional Health - Occupational Stress [...] st Contact Info) Description 11/15/2024 1:00 PM GOLF CLUB REPAIRER [facility] [address] [place] [address] Markus Finley MD [address] [place] [address] 11/15/2024 2:00 PM GOLF CLUB REPAIRER [facility] 1 [place] [address] Markus Finley MD [address] [place] [address] Discharge Disposition: Discharged to home or Selfcare documented as of this encounter Visit Diagnoses Not on filedocumented in this encounter Care Teams Brigadier Relationship Specialty Start Date End Date Pritesh Chu MD [address] [place] [address] PCP - General Family Medicine 04/18/24 Markus Finley MD [address] [place] [address] Consulting Physician Medical Oncology 04/18/24 documented as of this encounter
--- OUTSIDE RECORDS SUMMARY | 2024-10-26 10:55 | XMS_ITS | Encounter Summary ---
Author Organization [facility] Address [address] [place] [address] Phone Care Team Providers Care Tare Worker Name Role Phone Pritesh Chu MD Primary Care Provider [phone] Markus Finley MD Unavailable [phone] Encounter Details Date Type Department Care Team (Late st Contact Info) Description 06/01/2024 Telephone [facility] Oncology Services [address] [place] [phone] Markus Finley MD [address] [place] [address] Social History Tobacco Use Types Packs/Day Years [...] st Contact Info) Description 11/15/2024 1:00 PM CHRO Lab [facility] Laboratory Services 1 [place] [address] Markus Finley MD [address] [place] [address] 11/15/2024 2:00 PM CHRO Appointment [facility] MRI 1 [place] [address] Markus Finley MD [address] [place] [address] Discharge Disposition: Discharged to home or Selfcare documented as of this encounter Visit Diagnoses Not on filedocumented in this encounter Care Teams Tare Worker Relationship Specialty Start Date End Date Pritesh Chu MD [address] [address] PCP - General Family Medicine 04/18/24 Markus Finley MD [address] [place] [address] Consulting Physician Medical Oncology 04/18/24 documented as of this encounter
--- OUTSIDE RECORDS SUMMARY | 2024-10-26 10:55 | XMS_ITS | Encounter Summary ---
Author Organization [facility] Address [address] [facility] [address] Phone Care Team Providers Care Toll Operator Name Role Phone Pritesh Chu MD Primary Care Provider [phone] Markus Finley MD Unavailable Reason for Visit * Reason Comments Medication Refill Encounter Details Date Type Department Care Team (Late st Contact Info) Description 06/25/2024 Refill [facility] Oncology Services [address] [place] [phone] Markus Finley MD [address] [place] [address] Medication Refill Social History Tobacco Use Types [...] st Contact Info) Description 11/15/2024 1:00 PM WORKFORCE SERVICES REPRESENTATIVE [facility] 1 [place] [address] Markus Finley MD [address] [place] [address] 11/15/2024 2:00 PM WORKFORCE SERVICES REPRESENTATIVE [facility]ment [facility] 1 [place] [address] Markus Finley MD [address] [place] [address] Discharge Disposition: Discharged to home or Selfcare documented as of this encounter Visit Diagnoses Not on filedocumented in this encounter Care Teams Toll Operator Relationship Specialty Start Date End Date Pritesh Chu MD [address] [place] [address] PCP - General Family Medicine 04/18/24 Markus Finley MD [address] [place] [address] Consulting Physician Medical Oncology 04/18/24 documented as of this encounter
--- OUTSIDE RECORDS SUMMARY | 2024-10-26 10:55 | XMS_ITS | Encounter Summary ---
Author Organization [facility] Address [address] [facility] [place] [address] Phone Care Team Providers Care Tower Switch Operator Name Role Phone Pritesh Chu MD Primary Care Provider [phone] Markus Finely MD Unavailable [phone] Reason for Visit * Episode Based Medications (Routine) - Closed Specialty Diagnoses / Procedures Referred By Contross t Referred To Contact Diagnoses Metastatic melanoma (HCC) Markus Finley MD [address] [place] [address] Phone: tel: fax: [facility] [address] [place] [address] Phone: tel: fax: Referral ID Status Reason Start Date Expiration Date Visits Re quested Visits Authorized [id number] Closed 04/19/2024 1 30 Encounter Details Date Type Department Care Team (Late st Contact Info) Description 07/03/2024 9:30 AM CDT Clinical Support [facility] [address] [place] [id number] Markus Finley MD [address] [place] [address] Metastatic melanoma (HCC) (Primary Dx); Diarrhea due [...] pur e alcohol) [facility] Utilities Answer Date Recorded In the past 12 months has e [employer], gas, oil, or water [employer] threatened to shut off services in your [...] attend chur ch or yazdanism services? Never 06/27/2024 Do you belong to [...] and heating? Not hard at all 06/27/2024 [place] [facility] - Occupational Stress [...] time in the past 12 m [facility], were you homeless or living in a intermediate (including now)? No 06/27/2024 Comments No Sex [...] Contact Info) Description 11/15/2024 1:00 PM HUMAN RESOURCES TRAINING MANAGER Lab [facility] [address] [place] [address] Markus Finley MD [address] [place] [address] 11/15/2024 2:00 PM HUMAN RESOURCES TRAINING MANAGER Appointment [facility] [address] [place] [id number] Markus Finley MD [address] [place] [address] Discharge Disposition: Discharged to home or Selfcare [...] 10.0 % 07/03/2024 12:01 PM CDT [facility] NEUTROPHILS % 72.0 47.0 - 73.0 % 07/03/2024 12:01 PM CDT [facility] LYMPHOCYTES % 16.0(L) 18.0 - 42.0 % 07/03/2024 12:01 PM CDT [facility] MONOCYTES % 5.0 4.0 - 12.0 % 07/03/2024 12:01 PM CDT [facility] METAMYELOCYTES % 1.0(H) <=0.0 % 07/03/20 12:01 PM CDT [facility] NEUTROPHILS ABSOLUTE 14.67(H) 1.60 - 7.70 10(3)/mcL 07/03/2024 12:01 PM CDT [facility] LYMPHOCYTES ABSOLUTE 3.01 1.30 - 3.20 10(3)/mcL 07/03/2024 12:01 PM CDT [facility] MONOCYTES ABSOLUTE 0.94 0.20 - 1.00 10(3)/mcL 07/03/2024 12:01 PM CDT [facility] RBC MORPHOLOGY CONSISTENT WITH INDICES Yes 07/03/2024 12:01 PM CDT [facility] POLYCHROMASIA 1+ 07/03/2024 12:01 PM CDT [facility] LARGE PLATELETS 1+ 12:01 PM CDT [facility] WBC MORPH STATUS Normal 07/03/20 12:01 PM CDT [facility] Blood Sub-Q Port Venou s Access Device (Medi-Port, Implanted Port) / Unknown 07/03/2024 10:29 AM CDT 07/03/2024 10:29 AM CDT us Markus Finley MD HEMATOLOGY ORDERABLES Fi nal Result [facility] [address] [place] [address] * (ABNORMAL) CBC WITH AUTO DIFFERENTIAL (07/03/2024 10:29 AM CDT) WBC 18.81(H) 4.00 - 12.00 10(3)/mcL 07/03/2024 12:01 PM CDT [facility] RBC 6.30(H) 3.80 - 5.30 10(6)/mcL 07/03/2024 12:01 PM CDT [facility] HEMOGLOBIN (HGB) 18.5(H) 12.0 - 15.8 g/dL 07/03/2024 12:01 PM CDT [facility] HEMATOCRIT (HCT) 52.1(H) 36.0 - 47.0 % 07/03/2024 12:01 PM CDT [facility] MCV 82.7 82.0 - 96.0 fL 07/03/2024 12:01 PM CDT [facility] MCH 29.4 26.0 - 34.0 pg 07/03/2024 12:01 PM CDT [facility] MCHC 35.5 31.0 - 36.0 g/dL 07/03/2024 12:01 PM CDT [facility] PLATELET COUNT 436 140 - 440 10(3)/[facility] 07/03/2024 12:01 PM CDT [facility] RDW 12.8 11.8 - 15.5 % 07/03/2024 12:01 PM CDT [facility] MPV 10.2 9.7 - 12.4 fL 07/03/2024 12:01 PM CDT [facility] NRBC PER 100 WBC 0 07/03/2024 12:01 PM CDT [facility] RESULTS ARE CONSISTENT WITH PERIPHERAL SMEAR REVIEW Yes 07/03/2024 12:01 PM CDT [facility] Blood Sub-Q Port Venou s Access Device (Medi-Port, Implanted Port) / Unknown 07/03/2024 10:29 AM CDT 07/03/2024 10:29 AM CDT us Markus Finley MD HEMATOLOGY ORDERABLES Fi nal Result [facility] [address] [place] [address] * ADRENOCORTICOTROPIC HORMONE, P, MILLER ACTH (07/03/2024 10:29 AM CDT) ADRENOCORTICOTROPIC HORMONE (ACTH) 8.7 pg/mL 07/04/2024 12:18 PM CDT [facility] Comment: REFERENCE VALUE 7.2-63 (a.m. collection) Test Performed by: [place] [address] Balling Machine Operator: Ernie Page Ph.D.; CLIA# [id number] Blood Sub-Q Port Venou s Access Device (Medi-Port, Implanted Port) / Unknown 07/03/2024 10:29 AM CDT 07/03/2024 10:29 AM CDT Markus Finley MD LAB SEND OUTS Final Re sult [facility] US * (ABNORMAL) THYROXINE (T4) FREE (07/03/2024 10:29 AM CDT) Pathologist [facility] T4 FREE <0.4(L) 0.7 - 1.9 ng/dL 07/03/2024 11:55 AM CDT [facility] Blood Sub-Q Port Venou s Access Device (Medi-Port, Implanted Port) / Unknown 07/03/2024 10:29 AM CDT 07/03/2024 10:29 AM CDT Markus Finley MD CHEMISTRY ORDERABLES Fin al Result [facility] [address] [place] [address] * CORTISOL (07/03/2024 10:29 AM CDT) CORTISOL 18.9 mcg/dL 07/03/2024 11:32 AM CDT [facility] Blood Sub-Q Port Venou s Access Device (Medi-Port, Implanted Port) / Unknown 07/03/2024 10:29 AM CDT 07/03/2024 10:29 AM CDT Narrative [facility] - 07/03/2024 11:32 AM CDT AM: ??4 TO 19 mcg/dL PM: ??Approx. Half of AM Value ?? Markus Finley MD CHEMISTRY ORDERABLES Fin al Result Performing Organization Address City/[facility]/ZIP Co de Phone Number [facility] [address] [place] [address] * (ABNORMAL) TRIIODOTHYRININE (T3) FREE (07/03/2024 10:29 AM CDT) FREE T3 <1.5(L) 1.6 - 3.9 pg/mL 07/03/2024 4:27 PM CDT [facility] Blood Sub-Q Port Venou s Access Device (Medi-Port, Implanted Port) / Unknown 07/03/2024 10:29 AM CDT 07/03/2024 10:29 AM CDT Markus Finley MD CHEMISTRY ORDERABLES Fin al Result [facility] [address] [place] [address], * (ABNORMAL) THYROID STIMULATING HORMONE (TSH) (07/03/2024 10:29 AM CDT) TSH 42.415(H) 0.300 - 5.000 mIU/L 07/03/2024 11:32 AM CDT [facility] Blood Sub-Q Port Venou s Access Device (Medi-Port, Implanted Port) / Unknown 07/03/2024 10:29 AM CDT 07/03/2024 10:29 AM CDT us Markus Finley MD CHEMISTRY ORDERABLES Jacob al Result [facility] [address] [place] [address] * (ABNORMAL) CMP (COMPREHENSIVE METABOLIC PANEL) (07/03/2024 10:29 AM CDT) SODIUM 125(L) 136 - 145 mmol/L 07/03/2024 11:17 AM CDT [facility] POTASSIUM 3.0(L) 3.5 - 5.1 mmol/L 07/03/2024 11:17 AM CDT [facility] CHLORIDE 99 98 - 107 mmol/L 07/03/2024 11:17 AM CDT [facility] CO2, VENOUS 12(L) 22 - 30 mmol/L 07/03/2024 11:17 AM CDT [facility] ANION GAP 17.0 <18.0 mmol/L 07/03/2024 11:17 AM CDT [facility] GLUCOSE 150(H) 70 - 99 mg/dL 07/03/2024 11:17 AM CDT [facility] BUN 23(H) 5 - 18 mg/dL 07/03/2024 11:17 AM CDT [facility] CREATININE, BLOOD 1.55(H) 0.60 - 1.00 mg/dL 07/03/2024 11:17 AM CDT [facility] BUN/CREATININE RATIO 15 12 - 20 ratio 07/03/2024 11:17 AM CDT [facility] TOTAL PROTEIN 7.7 6.3 - 8.2 g/dL 07/03/2024 11:17 AM CDT [facility] ALBUMIN 4.2 3.5 - 5.0 g/dL 07/03/2024 11:17 AM CDT [facility] A/G RATIO 1.2 1.0 - 2.2 07/03/2024 11:17 AM CDT [facility] CALCIUM 9.4 8.7 - 10.5 mg/dL 07/03/2024 11:17 AM CDT [facility] T BILI 0.9 0.2 - 1.2 mg/dL 07/03/2024 11:17 AM CDT [facility] SGOT (AST) 28 5 - 34 U/L 07/03/2024 11:17 AM CDT [facility] SGPT (ALT) 64(H) 0 - 55 U/L 07/03/2024 11:17 AM CDT [facility] ALKALINE PHOSPHATASE 79 40 - 150 U/L 07/03/2024 11:17 AM CDT [facility] IS THE PATIENT REQUIRED TO BE FASTING? No 07/03/2024 11:17 AM CDT [facility] GFR, ESTIMATED 48(L) >=60 07/03/2024 11:17 AM CDT [facility] Comment: Creatinine Clearance is the preferred criteria for selecting drug dose adjustments in renally impaired patients. ??The GFR is provided as additional pertinent clinical information. GFR is reported in mL/min/1.73 sq m. Calculation based on the Chronic Kidney Disease Epidemiology Collaboration (CKD- EPI) equation refit without adjustment for race. GFR, EST. 50(L) >=60 024 11:17 AM CDT [facility] GFR, EST. NONAFRICAN 41(L) >=60 07/03/2024 11:17 AM CDT [facility] Blood Sub-Q Port Venou s Access Device (Medi-Port, Implanted Port) / Unknown 07/03/2024 10:29 AM CDT 07/03/2024 10:29 AM CDT us Markus Finley MD CHEMISTRY ORDERABLES Fin al Result [facility] [address] [place] [address] documented in this encounter Visit Diagnoses Diagnosis [...] mEq documented in this encounter Care Teams Tower Switch Operator Relationship Specialty Start Date End Date Pritesh Chu MD [address] [place] [address] PCP - General Family Medicine 04/18/24 Markus Finley MD [address] [place] [address] Consulting Physician Medical Oncology 04/18/24 documented as of this encounter
--- OUTSIDE RECORDS SUMMARY | 2024-10-26 10:55 | XMS_ITS | Encounter Summary ---
Author Organization [facility] Address [address] [place] [address] Phone Care Team Providers Care Outdoor Illuminating Engineer Name Role Phone Kellen Chu MD Primary Care Provider [phone] Markus Finley MD Unavailable [phone] Reason for Visit * Auth/Cert (Routine) Specialty Diagnoses / Procedures Referred By Delbert t Referred To Contact Diagnoses Sepsis (HCC) Dehydration sepsis Bernardo Petty MD [address] [place] [address] Phone: tel: fax: Referral ID Status Reason Start Date Expiration Date Visits Re quested Visits Authorized [id number] 1 1 Encounter Details Date Type Department Care Team (Late st Contact Info) Description 06/27/2024 8:22 AM CDT - 06/30/2024 6:40 PM CDT Hospital Encounter [facility] Med Surg [address] [place] [address] [phone] Vin Petty Rajnikant K, MD [address] [place] [address] Brayan Petty MD [address] [place] [address] Fever of unknown origin Discharge Disposition: Discharged [...] often do you attend chur ch or scientology services? Never 06/27/2024 Do you belong to [...] and heating? Not hard at all 06/27/2024 [facility] - Occupational Stress [...] alcohol? Never 06/27/2024 8:53 AM NELIAT Kaycee Galarza RN Q2: How many drinks containing alcohol [...] MD - 06/30/2024 11:05 AM CDT [facility] DISCHARGE SUMMARY Name: Dayanara Hilton Age: [...] found for: HGBA1C No results found for: [id number] No results found for: CPK , CPKI , CKMB , CKMBNI , CKMBPOCT , CKMBRELINDX , TROPONINI , POCTRP No results found for: FERRITIN No results found for: FOLATE No results found for: PHARTERIAL , PO2ART , QGS9UNK , CO2ART , O2ART Lab Results Component [...] Thank you very much for allowing the [facility] Adult Hospitalist Service to participate in the [...] PM CDT Request for Documentation Clarification [facility] Daynaara Hilton ; VISIT [id number] Query Response Sent: 07/06/24 11:00 CDT From: [...] foot and GERD who was transferred from [facility] as a direct admission for further management [...] cefepime, and was subsequently transferred here to [facility] for further management. * Drugs/Treatment: Maxipime; Vanco * Signs/Symptoms: SIRS Criteria DATE: 06/27 WBC: 6.20 HR: 130 RR: 20 TEMP: 100.2 (06/28) * Brayan Petty MD - 06/29/2024 9:40 PM CDT [facility] PROGRESS NOTE Dayanara Hilton is [...] results found for: PHARTERIAL , PO2ART , [id number] , CO2ART , O2ART Lab Results Component [...] LACTICA 0.9 06/29/2024 No results found for: [id number] No results found for: FERRITIN No results found for: GLUCOSEPOCT EKG: No results found. Imaging: No results found. By: Brayan Petty MD, 06/29/2024 9:40 PM CDT * Brayan Petty MD - 06/28/2024 10:12 PM CDT [facility] PROGRESS NOTE Dayanara Hilton is [...] results found for: PHARTERIAL , PO2ART , [id number] , CO2ART , O2ART Lab Results Component [...] LACTICA 1.5 06/27/2024 No results found for: [id number] No results found for: FERRITIN No results found for: GLUCOSEPOCT EKG: No results found. Imaging: No results found. By: Brayan Petty MD, 06/28/2024 10:14 PM CDT documented in this encounter H&P Notes * Debo Keenan APRN, SCULPTURE CONSERVATOR - 06/27/2024 11:52 AM CDT HOSPITALIST ADMISSION HISTORY & PHYSICAL EXAM PATIENT NAME: Dayanara Hilton, : 2000, MR#[id number] CHIEF COMPLAINT Fever, vomiting HPI Dayanara Hilton is a 24 y.o. female with a PMHx of melanoma of the left foot and GERD who was transferred from [facility] as a direct admission for further management [...] Patient presented to the emergency room at [facility] for evaluation last night. She states her [...] cefepime, and was subsequently transferred here to [facility] for further management. HOME MEDICATIONS: Prior [...] HENT: Head: Normocephalic and atraumatic. Mouth/Throat: Lips: Minto. Mouth: Mucous membranes are moist. Eyes: General: [...] results found for: PHARTERIAL , CO2ART , SKP9GED , PO2ART , O2ART Mg: No results [...] with patient and/or family and/or Power of Head Baggage Porter approximately 16 minutes. Discussed CPR/Intubation/Treatment Goals/Quality of [...] examine this patient. I agree with the SANITATION LABORER/PA???s findings and defer to the attached note. [...] started having some weakness in went to [facility]. She did have a temperature of 101.8??. [...] Pain and Promote Comfort Flowsheets (Taken 06/29/2024 8250) Pain Management Interventions: care clustered quiet environment facilitated relaxation techniques promoted Intervention: Provide Person-Centered Care Flowsheets (Taken 06/29/2024 3035) Trust Relationship/Rapport: care explained choices provided questions [...] antibiotics as ordered. * Interdisciplinary - Sherley Dyer RN - 06/29/2024 6:12 PM CDT Patient [...] periods encouraged * Interdisciplinary - Nell Lazar, [facility] - 06/29/2024 10:46 AM CDT PHARMACY PROGRESS NOTE: Vancomycin DAY # 3 Consulting Physician/Service: Debo Keenan APRN, CNP Admit Date: 06/27/2024 Patient Name: Dayanara iHlton Age: 24 y.o. Sex: female Height: 5' [...] time loading dose.- this was given at [facility] prior to transfer Vancomycin continued at 1250mg [...] you for this consult. For questions call [facility] Pharmacy [phone] Lizette Snow PharmD, BCPS 06/29/2024, 10:46 AM CDT Addendum: peaks still predicted >40 with q12h dosing. Will keep regimen q8h frequency, but will start 12hr from last dose given level. Will continue to obtain levels frequently as patient is poor fit per Insight and is on higher dose. - Nell Lazar PharmD, BCPS Electronically signed by Lizette Rojo [facility] at 06/29/2024 10:57 AM CDT Electronically signed by Lizette Rojo [facility] at 06/29/2024 11:00 AM CDT Electronically signed by Nell Lazar [facility] at 06/29/2024 2:51 PM CDT * Interdisciplinary - Sherley Dyer RN - [...] Orlando GIRALDO. * Interdisciplinary - Nell Lazar [facility] - 06/28/2024 2:42 PM CDT PHARMACY PROGRESS [...] time loading dose.- this was given at [facility] prior to transfer Vancomycin continued at 2000mg [...] you for this consult. For questions call [facility] Pharmacy [phone] Shanu Alva [facility] 06/28/2024, 2:42 PM CDT Addendum: Insight RX classifying patient as intermediate fit. Half-life predicting <4hrs. Will increase frequency to q12h. Though peaks are predicted to be above 40mcg/ml, likely closer to 35 as shown with today's peak. Will obtain another level tomorrow to reassess. - Nell Lazar, PharmD, BCPS Electronically signed by Shaun Alva [facility] at 06/28/2024 2:47 PM CDT Electronically signed by Nell Lazar [facility] at 06/28/2024 4:18 PM CDT * Plan of Care - Sherley Dyer [...] smartphone television * Interdisciplinary - Dunia Lorenzo [facility] - 06/27/2024 1:17 PM CDT PHARMACY PROGRESS NOTE: Vancomycin DAY # 1 Consulting Physician/Service: Debo Keenan APRN, SCULPTURE CONSERVATOR Admit Date: 06/27/2024 Patient Name: Dayanara Hilton Age: 24 y.o. Sex: female Height: 5' 6 (167.6 cm) Weight: 290 lb 11.2 oz (131.9 kg) Initial Antibiotic Indication: Debo Keenan, SANITATION LABORER, SCULPTURE CONSERVATOR Special population: None Current ABX List Includes: [...] time loading dose.- this was given at [facility] prior to transfer Vancomycin continued at 2000mg [...] you for this consult. For questions call [facility] Pharmacy [phone] DUNIA LORENZO RPH 06/27/2024, 1:18 PM CDT [...] pelvis and trunk: Bed Selection based on Rubesn Moisture and Mobility: Moisture 4: Mobility 3 or 4: No Specialty Bed Indicated Wound care: N/A KAYCEE R JESSICA, RN * Interdisciplinary - Kaycee Galarza RN - 06/27/2024 10:30 AM CDT Admitted pt as direct admit from [facility] N/V/D. A/O. Resp unlabored. RA. SL patent. Has PAC, not accessed. See flow sheet for complete assessment. Up at harish. Orders pending. Rounding continues. documented in this encounter Plan of Treatment Upcoming Encounters Date Type Department Care Team (Late st Contact Info) Description 11/15/2024 1:00 PM [facility] [address] [place] [address] Markus Finley MD [address] [place] [address] 11/15/2024 2:00 PM RATCHET SETTER [facility] [address] [place] [address] Markus Finley MD [address] [place] [address] Discharge Disposition: Discharged to home or Selfcare [...] 40 mcg/mL 06/30/2024 8:49 AM CDT [facility] Blood Venipuncture / Unknown 06/30/2024 8:11 AM CDT 06/30/2024 8:25 AM CDT Narrative [facility] - 06/30/2024 8:49 AM CDT CALL PHARMACY FOR THERAPEUTIC RANGE. Violetta Mcdonald MD CHEMISTRY ORDERABLES Fin al Result [facility] [address] [place] [address] * (ABNORMAL) Manual Differential (06/30/2024 5:35 AM CDT) Only the most recent of4 resultswithin the time period is included. BANDS % 12.0(H) 0.0 - 10.0 % 06/30/2024 6:15 AM CDT [facility] NEUTROPHILS % 59.0 47.0 - 73.0 % 06/30/2024 6:15 AM CDT [facility] LYMPHOCYTES % 20.0 18.0 - 42.0 % 06/30/2024 6:15 AM CDT [facility] MONOCYTES % 9.0 4.0 - 12.0 % 06/30/2024 6:15 AM CDT [facility] NEUTROPHILS ABSOLUTE 7.15 1.60 - 7.70 10(3)/mcL 06/30/2024 6:15 AM CDT [facility] LYMPHOCYTES ABSOLUTE 2.01 1.30 - 3.20 10(3)/mcL 06/30/2024 6:15 AM CDT [facility] MONOCYTES ABSOLUTE 0.91 0.20 - 1.00 10(3)/mcL 06/30/2024 6:15 AM CDT [facility] WBC MORPH STATUS Normal 06/30/20 6:15 AM CDT [facility] RBC MORPH STATUS Normal 06/30/20 6:15 AM CDT [facility] PLATELET STATUS Normal 6:15 AM CDT [facility] Blood Venipuncture / Unknown 06/30/2024 5:35 AM CDT 06/30/2024 5:39 AM CDT us Brayan Kang MD HEMATOLOGY ORDERABLES Final R esult [facility] [address] [place] [address] * (ABNORMAL) CBC with Auto Differential (06/30/2024 5:35 AM CDT) Only the most recent of4 resultswithin the time period is included. WBC 10.07 4.00 - 12.00 10(3)/mcL 06/30/2024 6:15 AM CDT [facility] RBC 5.49(H) 3.80 - 5.30 10(6)/mcL 06/30/2024 6:15 AM CDT [facility] HEMOGLOBIN (HGB) 16.2(H) 12.0 - 15.8 g/dL 06/30/2024 6:15 AM CDT [facility] HEMATOCRIT (HCT) 47.1(H) 36.0 - 47.0 % 06/30/2024 6:15 AM CDT [facility] MCV 85.8 82.0 - 96.0 fL 06/30/2024 6:15 AM CDT [facility] MCH 29.5 26.0 - 34.0 pg 06/30/2024 6:15 AM CDT [facility] MCHC 34.4 31.0 - 36.0 g/dL 06/30/2024 6:15 AM CDT [facility] PLATELET COUNT 307 140 - 440 10(3)/mcL 06/30/2024 6:15 AM CDT [facility] RDW 12.9 11.8 - 15.5 % 06/30/2024 6:15 AM CDT [facility] MPV 9.5(L) 9.7 - 12.4 fL 06/30/2024 6:15 AM CDT [facility] NRBC PER 100 WBC 0 06/30/2024 6:15 AM CDT [facility] RESULTS ARE CONSISTENT WITH PERIPHERAL SMEAR REVIEW Yes 06/30/2024 6:15 AM CDT [facility] Blood Venipuncture / Unknown 06/30/2024 5:35 AM CDT 06/30/2024 5:39 AM CDT us Brayan Kang MD HEMATOLOGY ORDERABLES Final R esult [facility] [address] [place] [address] * (ABNORMAL) BMP with Ca, Total (06/30/2024 5:35 AM CDT) Only the most recent of3 resultswithin the time period is included. SODIUM 137 136 - 145 mmol/L 06/30/2024 6:05 AM CDT [facility] POTASSIUM 3.6 3.5 - 5.1 mmol/L 06/30/2024 6:05 AM CDT [facility] CHLORIDE 110(H) 98 - 107 mmol/L 06/30/2024 6:05 AM CDT [facility] CO2, VENOUS 15(L) 22 - 30 mmol/L 06/30/2024 6:05 AM CDT [facility] ANION GAP 15.6 <18.0 mmol/L 06/30/2024 6:05 AM CDT [facility] GLUCOSE 82 70 - 99 mg/dL 06/30/2024 6:05 AM CDT [facility] BUN 7 5 - 18 mg/dL 06/30/2024 6:05 AM CDT [facility] CREATININE, BLOOD 0.87 0.60 - 1.00 mg/dL 06/30/2024 6:05 AM CDT [facility] BUN/CREATININE RATIO 8(L) 12 - 20 ratio 06/30/2024 6:05 AM T [facility] CALCIUM 9.6 8.7 - 10.5 mg/dL 06/30/2024 6:05 AM CDT [facility] GFR, ESTIMATED >60 >=60 06/30/2024 6:05 AM CDT [facility] Comment: Creatinine Clearance is the preferred criteria for selecting drug dose adjustments in renally impaired patients. ??The GFR is provided as additional pertinent clinical information. GFR is reported in mL/min/1.73 sq m. Calculation based on the Chronic Kidney Disease Epidemiology Collaboration (CKD- EPI) equation refit without adjustment for race. GFR, EST. >60 >=60 024 6:05 AM CDT [facility] GFR, EST. NONAFRICAN >60 >=60 06/30/2024 6:05 AM CDT [facility] Blood Venipuncture / Unknown 06/30/2024 5:35 AM CDT 06/30/2024 5:40 AM CDT Brayan Kang MD CHEMISTRY ORDERABLES Final Re sult Performing Organization Address City/[facility]/ZIP Co de Phone Number [facility] [address] [place] [address] * Magnesium (Mg) (06/30/2024 5:35 AM CDT) Only the most recent of3 resultswithin the time period is included. MAGNESIUM 2.3 1.6 - 2.6 mg/dL 06/30/2024 6:05 AM CDT [facility] Blood Venipuncture / Unknown 06/30/2024 5:35 AM CDT 06/30/2024 5:40 AM CDT us Debo Keenan APRN, CNP CHEMISTRY ORDERABLES Final Result [facility] [address] [place] [address] * RHYTHM STRIP (06/30/2024 12:00 AM CDT) Only the most recent of11 resultswithin the time period is included. 06/30/2024 us Provider Scan IMG ECG ORDERABLES Final Result Performing Organization Address [facility] Co de Phone Number RESULTING AGENCY * Lactic Acid (Lactate) (06/29/2024 5:48 AM CDT) Only the most recent of3 resultswithin the time period is included. LACTIC ACID 0.9 0.7 - 2.0 mmol/L 06/29/2024 6:17 AM CDT [facility] Comment: Specimen is hemolyzed. In vitro hemolysis could affect results. Clinical correlation advised. Blood Venipuncture / Unknown 06/29/2024 5:48 AM CDT 06/29/2024 5:56 AM CDT Brayan Kang MD CHEMISTRY ORDERABLES Final Re sult Performing Organization Address [facility] de Phone Number [facility] [address] [place] [address] * PHOSPHORUS (PO4) (06/29/2024 5:48 AM CDT) [facility] PHOSPHORUS 3.1 2.5 - 4.5 mg/dL 06/29/2024 6:23 AM CDT [facility] Blood Venipuncture / Unknown 06/29/2024 5:48 AM CDT 06/29/2024 5:56 AM CDT Brayan Kang MD CHEMISTRY ORDERABLES Final Re sult Performing Organization Address [facility] Co de Phone Number [facility] [address] [place] [address] * (ABNORMAL) URINALYSIS REFLEX IF INDICATED BY ABNORMAL RESULTS (06/28/2024 6:21 PM CDT) Pathologist [facility] SPECIFIC GRAVITY 1.015 1.003 - 1.030 06/28/2024 6:46 PM CDT [facility] URINE PH 6.0 5.0 - 9.0 06/28/2024 6:46 PM CDT [facility] WBC ESTERASE 25 /ul(A) Negative 06/28/2024 6:46 PM CDT [facility] NITRITE Negative Negative 06/28/2024 6:46 PM CDT [facility] PROTEIN, RANDOM URINE 30 mg/dL(A) Negative 06/28/2024 6:46 PM CDT [facility] URINE GLUCOSE, QUAL Negative Negative 06/28/2024 6:46 PM CDT [facility] URINE KETONES 150 mg/dL(A) Negative 6:46 PM CDT [facility] UROBILINOGEN Normal Normal mg/dL 06/28/2024 6:46 PM CDT [facility] URINE BLOOD 250 /uL(A) Negative chidi/ul 06/28/2024 6:46 PM CDT [facility] URINALYSIS COLOR Dark Yellow 024 6:46 PM CDT [facility] URINALYSIS CLARITY Clear 06/28/2024 6:46 PM CDT [facility] WBC (Urine) 0-5 Negative, 0-5 /hpf 06/28/2024 6:46 PM CDT [facility] URINE RBC'S 51-150(A) Negative, 0-2 /hpf 06/28/2024 6:46 PM CDT [facility] EPITHELIAL CELLS Moderate amount /lpf 06/28/2024 6:46 PM CDT [facility] BACTERIA, URINE Few(A) Negative /hpf 06/28/2024 6:46 PM CDT [facility] Urine URINE SPECIMEN COLLECTION, CLEAN CATCH / Unknown Non-Phlebotomy Collection / Unknown 06/28/2024 6:21 PM CDT 06/28/2024 6:27 PM CDT us Violetta Mcdonald MD URINE ORDERABLES Final R esult [facility] [address] [place] [address] * CMV DNA Quant PCR (06/28/2024 3:30 PM CDT) Pathologist [facility] CMV DNA QUANT PCR NON DETECTED NON DETECTED 06/29/2024 12:48 PM CDT [facility] CMV DNA QT LOG 06/29/2024 12:48 PM CDT [facility] Comment: LOG 10 not applicable Blood Venipuncture / Unknown 06/28/2024 3:30 PM CDT 06/28/2024 3:33 PM CDT Narrative [facility] - 06/29/2024 12:48 PM CDT Supplemental testing methods may be needed when CMV viral loads are negative in patients highly suspected to have clinically significant CMV viremia This test was performed using JUAN F 5800 Real Time PCR. Violetta Mcdonald MD IMMUNOLOGY ORDERABLES [facility] Result [facility] [address] [place] [address], * Stanley Collazo Virus (EBV) Comprehensive (06/28/2024 3:30 PM CDT) [facility] EBV VCA IGG AB (STANLEY-COLLAZO VIRUS-VIRAL CAPSID ANTIGEN) 3.4 AI 06/29/2024 5:17 AM CDT [facility] Comment: <= 0.8 Negative. ??No detectable IgG antibody to VCA. 0.9 - 1.0 Equivocal >=1.1 Positive Antibody testing was performed by multiplex flow immunoassay on the BioPlex platform. EBV NUCLEAR AG >8.0 AI 06/29/2024 5:17 AM CDT [facility] Comment: <= 0.8 Negative. ??No detectable IgG antibody to NA. 0.9 - 1.0 Equivocal >=1.1 Positive Antibody testing was performed by multiplex flow immunoassay on the [employer]Plex platform. EBV EARLY AG(EA, DIF) <0.2 AI 06/29/2024 5:17 AM CDT [facility] Comment: <= 0.8 Negative. ??No detectable IgG antibody to EA. 0.9 - 1.0 Equivocal >=1.1 Positive Antibody testing was performed by multiplex flow immunoassay on the [employer]Plex platform. EBV VCA IGM AB (STANLEY-COLLAZO VIRUS-VIRAL CAPSID ANTIGEN) 0.2 <1.1 AI 06/29/2024 5:17 AM CDT [facility] Comment: <= 0.8 Negative. ??No detectable IgM antibody to VCA. 0.9 - 1.0 Equivocal >=1.1 Positive Antibody testing was performed by multiplex flow immunoassay on the [employer]Plex platform. EBV HETEROPHILE <0.2 <1.1 AI 5:17 AM CDT [facility] Comment: <= 0.8 Negative. ??No detectable Heterophile antibody. 0.9 - 1.0 Equivocal >=1.1 Positive Antibody testing was performed by multiplex flow immunoassay on the [employer]Plex platform. EBV INTERP: 06/29/2024 5:17 AM CDT [facility] Comment:This serology is mos t consistent with past Stanley Collazo Viral infection. Blood Venipuncture / Unknown 06/28/2024 3:30 PM CDT 06/28/2024 3:33 PM CDT us Violetta Mcdonald MD IMMUNOLOGY ORDERABLES Fi nal Result [facility] [address] [place] [address], [place] * XR REFERENCE IMAGES FOR IMAGE [...] PM T: ??06/27/2024 1:07 PM Report ID: [id number] Reading Location: ??[id number] Procedure Note Filipe Erazo MD - 06/27/2024 [...] Filipe Erazo M.D. MM: MM Report ID: [id number] Reading Location: [id number] IMPRESSION: No acute pulmonary process. Debo Keenan APRN, CNP IMG DIAGNOSTIC ORDERA BLES Final Result * ABO/RH (D) RECHECK (06/27/2024 11:38 AM CDT) Only the most recent of2 resultswithin the time period is included. ABO TYPING O 06/27/2024 1:16 PM CDT [facility] RH Positive 06/27/2024 1:16 PM CDT [facility] Blood Venipuncture / Unknown 06/27/2024 11:38 AM CDT 06/27/2024 1:13 PM CDT Romelia Horn MD PhD BLOOD BANK ORDERABLES Final Result [facility] [address] [place] [address] * Culture, Blood (06/27/2024 11:38 AM CDT) Only the most recent of2 resultswithin the time period is included. CULTURE RESULTS NO GROWTH WITHIN 5 DAYS, FINAL RESULT 07/02/2024 12:00 PM CDT [facility] Culture BLOOD SPECIMEN / Unknown Venipuncture / Unknown 06/27/2024 11:38 AM CDT 06/27/2024 11:42 AM CDT Narrative [facility] - 07/02/2024 12:00 PM CDT Only received an anaerobic bottle for this culture set (no aerobic bottle). Due to the current Bactec bottle shortage, this culture will still be processed. Brayan Kang MD MICROBIOLOGY - GENERAL ORDERA BLES Final Result [facility] [address] [place] [address], [place] * PT/INR Routine (06/27/2024 11:20 AM CDT) PROTIME-PATIENT 14.1 11.6 - 14.8 sec 06/27/2024 11:46 AM CDT [facility] INR 1.1 0.9 - 1.2 06/27/2024 11:46 AM CDT [facility] Comment: Therapeutic Ranges INR = 2.0-3.0: Venous thromb, atrial fib, pul embolism, tissue heart valve, ami. INR = 2.5-3.5: Mechanical heart valve Critical value for INR is >/= 4.5 Blood BLOOD SPECIMEN / Unknown Venipuncture / Unknown 06/27/2024 11:20 AM CDT 06/27/2024 11:26 AM CDT Brayan Kang MD HEMATOLOGY ORDERABLES Final R esult Performing Organization Address City/[facility]/ZIP Co de Phone Number [facility] [address] [place] [address] * TYPE & SCREEN (CROSSMATCH CONVERTIBLE) (06/27/2024 11:20 AM CDT) Pathologist [facility] ABO TYPING O 06/27/2024 12:47 PM CDT [facility] RH Positive 06/27/2024 12:47 PM CDT [facility] ABSC Negative 06/27/2024 12:47 PM CDT [facility] Blood Venipuncture / Unknown 06/27/2024 11:20 AM CDT 06/27/2024 11:26 AM CDT Brayan Kang MD BLOOD BANK ORDERABLES Edited Result - Final [facility] [address] [place] [address] * Lipase (06/27/2024 11:20 AM CDT) Pathologist [facility] LIPASE 36 8 - 78 U/L 06/27/2024 11:52 AM CDT [facility] Blood Venipuncture / Unknown 06/27/2024 11:20 AM CDT 06/27/2024 11:26 AM CDT Brayan Kang MD CHEMISTRY ORDERABLES Final Re sult Performing Organization Address City/[facility]/ZIP Co de Phone Number [facility] [address] [place] [address] * (ABNORMAL) Amylase (06/27/2024 11:20 AM CDT) AMYLASE 21(L) 25 - 125 U/L 06/27/2024 11:52 AM CDT [facility] Blood Venipuncture / Unknown 06/27/2024 11:20 AM CDT 06/27/2024 11:26 AM CDT Brayan Kang MD CHEMISTRY ORDERABLES Final Re sult Performing Organization Address City/[facility]/ZIP Co de Phone Number [facility] [place] [address] * Procalcitonin (06/27/2024 11:20 AM CDT) PROCALCITONIN 0.16 <=0.25 ng/mL 06/27/2024 12:11 PM CDT [facility] Blood Venipuncture / Unknown 06/27/2024 11:20 AM CDT 06/27/2024 11:26 AM CDT Brayan Kang MD IMMUNOLOGY ORDERABLES Final R esult Performing Organization Address City/[facility]/ZIP Co de Phone Number [facility] [place] [address] * (ABNORMAL) CMP (Comprehensive Metabolic Panel) (06/27/2024 11:20 AM CDT) SODIUM 136 136 - 145 mmol/L 06/27/2024 11:52 AM T [facility] POTASSIUM 3.1(L) 3.5 - 5.1 mmol/L 06/27/2024 11:52 AM [facility] CHLORIDE 105 98 - 107 mmol/L 06/27/2024 11:52 AM [facility] CO2, VENOUS 19(L) 22 - 30 mmol/L 06/27/2024 11:52 AM [facility] ANION GAP 15.1 <18.0 mmol/L 06/27/2024 11:52 AM [facility] GLUCOSE 112(H) 70 - 99 mg/dL 06/27/2024 11:52 AM [facility] BUN 10 5 - 18 mg/dL 06/27/2024 11:52 AM [facility] CREATININE, BLOOD 1.10(H) 0.60 - 1.00 mg/dL 06/27/2024 11:52 AM [facility] BUN/CREATININE RATIO 9(L) 12 - 20 ratio 06/27/2024 11:52 AM [facility] TOTAL PROTEIN 6.0(L) 6.3 - 8.2 g/dL 06/27/2024 11:52 AM [facility] ALBUMIN 3.3(L) 3.5 - 5.0 g/dL 06/27/2024 11:52 AM [facility] A/G RATIO 1.2 1.0 - 2.2 06/27/2024 11:52 AM [facility] CALCIUM 8.7 8.7 - 10.5 mg/dL 06/27/2024 11:52 AM [facility] T BILI 0.6 0.2 - 1.2 mg/dL 06/27/2024 11:52 AM [facility] SGOT (AST) 15 5 - 34 U/L 06/27/2024 11:52 AM T [facility] SGPT (ALT) 39 0 - 55 U/L 06/27/2024 11:52 AM CDT [facility] ALKALINE PHOSPHATASE 57 40 - 150 U/L 06/27/2024 11:52 AM CDT [facility] GFR, ESTIMATED >60 >=60 06/27/2024 11:52 AM CDT [facility] Comment: Creatinine Clearance is the preferred criteria for selecting drug dose adjustments in renally impaired patients. ??The GFR is provided as additional pertinent clinical information. GFR is reported in mL/min/1.73 sq m. Calculation based on the Chronic Kidney Disease Epidemiology Collaboration (CKD- EPI) equation refit without adjustment for race. GFR, EST. >60 >=60 024 11:52 AM CDT [facility] GFR, EST. NONAFRICAN >60 >=60 06/27/2024 11:52 AM CDT [facility] Blood Venipuncture / Unknown 06/27/2024 11:20 AM CDT 06/27/2024 11:26 AM CDT us Brayan Kang MD CHEMISTRY ORDERABLES Final Re sult Performing Organization Address [facility]/ZIP Co de Phone Number [facility] [place] [address] * CT - ABDOMEN/PELVIS (06/27/2024 12:00 AM CDT) 06/27/2024 us Provider Scan IMG CT ORDERABLES Final Result SCAN * C. DIFFICILE BY PCR (06/27/2024 12:00 AM CDT) 06/27/2024 us Provider Scan MICROBIOLOGY - GENERAL ORDERABLE S Final Result Performing Organization Address City/[facility]/ZIP Co de Phone Number SCAN * Urinalysis [...] taking oral intake without complications and both PO/NY orders are active, administer through the oral route. acetaminophen (TYLENOL) tablet 650 mg 650 mg, Oral, EVERY 4 HOURS PRN, Starting on Tue06/27/24 at 1155, Until 06/30/24 at 2110, Mild pain or more severe pain if patient requests, Fever, If patient is taking oral intake without complications and both PO/NY orders are active, administer through the oral [...] taking oral intake without complications and both PO/NY orders are active, administer through the oral route. acetaminophen (TYLENOL) tablet 650 mg(Linked Group 1) 650 mg, Oral, EVERY 4 HOURS PRN, Starting on Tue06/27/24 at 1155, Until 06/30/24 at 2110, Mild pain or more severe pain if patient requests, Fever, If patient is taking oral intake without complications and both PO/NY orders are active, administer through the oral [...] taking oral intake without complications and both PO/NY orders are active, administer through the oral route. Or acetaminophen (TYLENOL) suppository 650 mgJump to med 650 mg, Rectal, EVERY 4 HOURS PRN, Starting on 06/27/24 at 1155, Until 06/30/24 at 2111, Mild pain or more severe pain if patient requests, Fever, If patient is taking oral intake without complications and both PO/NY orders are active, administer through the oral route. documented in this encounter Additional Health Concerns Infection Onset Date Last Indicated Resolved Time C. difficile Rule-Out Comment:Patient tested at [facility] and PCR was negative. 06/27/2024 06/27/2024 5:17 AM CDT documented as of this encounter Care Teams Outdoor Illuminating Engineer Relationship Specialty Start Date End Date Kellen Chu MD [address] [address] PCP - General Family Medicine 04/18/24 Markus Finley MD [address] [place] [address] Consulting Physician Medical Oncology 04/18/24 documented as of this encounter
--- OUTSIDE RECORDS SUMMARY | 2024-10-26 10:55 | XMS_ITS | Encounter Summary ---
Author Organization [facility] Care Team Providers Care Bread Icer Name Role Phone Pritesh Chu MD Primary Care Provider [phone] Markus Finley MD Unavailable [phone] Encounter Details Date Type Department Care Team [...] st Contact Info) Description 11/15/2024 1:00 PM DRAWBENCH OPERATOR HELPER Lab [facility] Laboratory Services [address] [place] [id number] Markus Finley MD [address] [place] [address] 11/15/2024 2:00 PM DRAWBENCH OPERATOR HELPER Appointment [facility] MRI [address] [place] [address] Markus Finley MD [address] [place] [address] Discharge Disposition: Discharged to home or Selfcare documented as of this encounter Visit Diagnoses Not on filedocumented in this encounter Care Teams Bread Icer Relationship Specialty Start Date End Date Pritesh Chu MD [address] [address] PCP - General Family Medicine 04/18/24 Markus Filney MD [address] [place] [address] Consulting Physician Medical Oncology 04/18/24 documented as of this encounter
--- OUTSIDE RECORDS SUMMARY | 2024-10-26 10:55 | XMS_ITS | Encounter Summary ---
Author Organization [employer] Care Team Providers Care Lead Sewage Plant Operator Name Role Phone Pritesh Chu MD Primary Care Provider [phone] Markus Finley MD Unavailable [phone] Encounter Details Date Type Department Care Team (Latest Contact Info) Description 06/27/2024 Travel Social History Tobacco Use Types Packs/Day Years Used Date Smoking Tobacco: Former Cigarettes 0.5 8.5 S tarted: 04/18/2016 Smokeless Tobacco: Never Alcohol Use Standard Drinks/Week Comments Yes 0 (1 standard drink = 0.6 oz pur e alcohol) [facility] Utilities Answer Date Recorded In the past 12 months has [employer], gas, oil, or water [employer] threatened to shut off services in your [...] attend chur ch or jew services? Never 06/27/2024 Do you belong to [...] and heating? Not hard at all 06/27/2024 [facility] of Occupat ional Health - Occupational Stress [...] any time in the past 12 m [facility], were you homeless or living in a snf (including now)? No 06/27/2024 Comments No Sex [...] st Contact Info) Description 11/15/2024 1:00 PM EMBOSSING TOOL SETTER Lab [facility] [address] [place] [phone] Markus Finley MD [address] [place] [address] 11/15/2024 2:00 PM EMBOSSING TOOL SETTER [facility]ointment [facility] [address] [place] [phone] Markus Finley MD [address] [place] [address] Discharge Disposition: Discharged to home or Selfcare documented as of this encounter Visit Diagnoses Not on filedocumented in this encounter Care Teams Lead Sewage Plant Operator Relationship Specialty Start Date End Date Pritesh Chu MD [address] [place] [address] PCP - General Family Medicine 04/18/24 Markus Finley MD [address] [place] [address] Consulting Physician Medical Oncology 04/18/24 documented as of this encounter
--- OUTSIDE RECORDS SUMMARY | 2024-10-26 10:55 | XMS_ITS | Encounter Summary ---
Author Organization [facility] Care Team Providers Care Neonatal Social Worker Name Role Phone Pritesh Chu MD Primary Care Provider [phone] Markus Finley MD Unavailable [phone] Encounter Details Date Type Department Care Team [...] st Contact Info) Description 11/15/2024 1:00 PM DRAWER WAXER Lab [facility] Laboratory Services [address] [place] [phone] Markus Finley MD [address] [place] [address] 11/15/2024 2:00 PM DRAWER WAXER Appointment [facility] MRI [address] [place] [address] Markus Finley MD [address] [place] [address] Discharge Disposition: Discharged to home or Selfcare documented as of this encounter Visit Diagnoses Not on filedocumented in this encounter Care Teams Neonatal Social Worker Relationship Specialty Start Date End Date Pritesh Chu MD [address] [address] PCP - General Family Medicine 04/18/24 Markus Finley MD [address] [place] [address] Consulting Physician Medical Oncology 04/18/24 documented as of this encounter
--- OUTSIDE RECORDS SUMMARY | 2024-10-26 10:55 | XMS_ITS | Encounter Summary ---
Author Organization [facility] Care Team Providers Care Hearing Aid Technician Name Role Phone Pritesh Chu MD Primary Care Provider [phone] Markus Finley MD Unavailable [phone] Encounter Details Date Type Department Care Team [...] st Contact Info) Description 11/15/2024 1:00 PM CUTTER HELPER Lab [facility] Laboratory Services 1 [place] [phone] Markus Finley MD [address] [place] [address] 11/15/2024 2:00 PM CUTTER HELPER Appointment [facility] MRI [address] [place] [address] Markus Finley MD [address] [place] [address] Discharge Disposition: Discharged to home or Selfcare documented as of this encounter Visit Diagnoses Not on filedocumented in this encounter Care Teams Hearing Aid Technician Relationship Specialty Start Date End Date Pritesh Chu MD [address] [address] PCP - General Family Medicine 04/18/24 Markus Finley MD [address] [place] [address] Consulting Physician Medical Oncology 04/18/24 documented as of this encounter
--- OUTSIDE RECORDS SUMMARY | 2024-10-26 10:55 | XMS_ITS | Encounter Summary ---
Author Organization [facility] Address [address] [facility] [place] [place] [address] Phone Care Team Providers Care Safety Instruction Police Officer Name Role Phone Pritesh Chu MD Primary Care Provider [phone] Markus Finley MD Unavailable [phone] Reason for Visit * Reason Comments Follow-up Encounter Details Date Type Department Care Team (Late st Contact Info) Description 06/12/2024 2:45 PM CDT [facility] [address] [place] [phone] Markus Finley MD [address] [place] [address] Jenn Medellin Ed[place]ira, PAC [address] [place] [address] Metastatic melanoma (HCC) (Primary Dx); Abnormal TSH [...] labs for CMP, TSH, T3, T4. Contact technician preventative medicine for excision of lesions to dorsal aspect [...] labs for CMP, TSH, T3, T4. Contact technician preventative medicine for excision of lesions to dorsal aspect [...] labs for CMP, TSH, T3, T4. Contact technician preventative medicine for excision of lesions to dorsal aspect [...] Contact Info) Description 11/15/2024 1:00 PM CLINICAL SUPERVISOR Lab [facility] [address] [place] [address] Markus Finley MD [address] [place] [address] 11/15/2024 2:00 PM CLINICAL SUPERVISOR [facility]ointment [facility] [address] [place] [address] Markus Finley MD [address] [place] [address] Discharge Disposition: Discharged to home or Selfcare documented as of this encounter Results * TRIIODOTHYRININE (T3) TOTAL (06/12/2024 2:14 PM CDT) T3 107 40 - 193 ng/dL 06/12/2024 9:46 PM CDT [facility] Blood Sub-Q Port Venou s Access Device (Medi-Port, Implanted Port) / Unknown 06/12/2024 2:14 PM CDT 06/12/2024 2:14 PM CDT [facility] PAC CHEMISTRY ORDERABLES Susan l Result [facility] [address] [place] [address], [place] * THYROXINE (T4) FREE (06/12/2024 2:14 PM CDT) T4 FREE 0.8 0.7 - 1.9 ng/dL 06/12/2024 4:25 PM CDT [facility] Blood Sub-Q Port Venou s Access Device (Medi-Port, Implanted Port) / Unknown 06/12/2024 2:14 PM CDT 06/12/2024 2:14 PM CDT [facility] PAC CHEMISTRY ORDERABLES Susan l Result [facility] [address] [place] [address] documented in this encounter Visit Diagnoses Diagnosis Metastatic melanoma (HCC)- Primary Melanoma of skin, site unspecified Abnormal TSH Other abnormal clinical finding documented in this encounter Care Teams Safety Instruction Police Officer Relationship Specialty Start Date End Date Pritesh Chu MD [address] [address] PCP - General Family Medicine 04/18/24 Markus Finley MD [address] [place] [address] Consulting Physician Medical Oncology 04/18/24 documented as of this encounter
--- OUTSIDE RECORDS SUMMARY | 2024-10-26 10:55 | XMS_ITS | Encounter Summary ---
Author Organization [facility] Address [address] [place] [address] Phone Care Team Providers Care Behavioral Health Care Coordinator Name Role Phone Pritesh Chu MD Primary Care Provider [phone] Markus Finley MD Unavailable [phone] Reason for Visit * Episode Based Medications (Routine) - Closed Specialty Diagnoses / Procedures Referred By Contross t Referred To Contact Diagnoses Metastatic melanoma (HCC) Markus Finley MD [address] [place] [address] Phone: tel: fax: [facility] Oncology Services [address] [place] [address] Phone: tel: fax: Referral ID Status Reason Start Date Expiration Date Visits Re quested Visits Authorized [id number] Closed 04/19/2024 1 30 Encounter Details Date Type Department Care Team (Late st Contact Info) Description 06/12/2024 1:00 PM CDT Clinical Support [facility] Oncology Services [address] [place] [address] Markus Finley MD [address] [place] [address] Metastatic melanoma (HCC) (Primary Dx); Abnormal TSH [...] Pt awaiting treatment and provider follow-up in [facility]. * Interdisciplinary - Liliana Finney RN - 06/12/2024 1:00 PM CDT Medication given per MD order and pt tolerated well. Pt recites she will call derm office at [place] for follow-up regarding possible new lesions and [...] st Contact Info) Description 11/15/2024 1:00 PM BRANCH SERVICE REPRESENTATIVE Lab [facility] 1 [place] [address] Markus Finley MD [address] [place] [address] 11/15/2024 2:00 PM BRANCH SERVICE REPRESENTATIVE [facility]ointment [facility] [address] [place] [address] Markus Finley MD [address] [place] [address] Discharge Disposition: Discharged to home or Selfcare [...] - 1.9 ng/dL 06/12/2024 4:54 PM CDT [facility] Blood Sub-Q Port Venou s Access Device (Medi-Port, Implanted Port) / Unknown 06/12/2024 2:14 PM CDT 06/12/2024 2:14 PM CDT [facility] PAC CHEMISTRY ORDERABLES Susan l Result [facility] [address] [place] [address] * (ABNORMAL) THYROID SCREEN WITH REFLEX (06/12/2024 2:14 PM CDT) TSH 0.100(L) 0.300 - 5.000 mIU/L 06/12/2024 4:23 PM CDT [facility] Blood Sub-Q Port Venou s Access Device (Medi-Port, Implanted Port) / Unknown 06/12/2024 2:14 PM CDT 06/12/2024 2:14 PM CDT [facility] PAC CHEMISTRY ORDERABLES Susan l Result [facility] [address] [place] [address] * TRIIODOTHYRININE (T3) TOTAL (06/12/2024 2:14 PM CDT) Pathologist [facility] T3 107 40 - 193 ng/dL 06/12/2024 9:46 PM CDT [facility] Blood Sub-Q Port Venou s Access Device (Medi-Port, Implanted Port) / Unknown 06/12/2024 2:14 PM CDT 06/12/2024 2:14 PM CDT [facility] PAC CHEMISTRY ORDERABLES Susan l Result [facility] [address] [place] [address], * THYROXINE (T4) FREE (06/12/2024 2:14 PM CDT) Pathologist [facility] T4 FREE 0.8 0.7 - 1.9 ng/dL 06/12/2024 4:25 PM CDT [facility] Blood Sub-Q Port Venou s Access Device (Medi-Port, Implanted Port) / Unknown 06/12/2024 2:14 PM CDT 06/12/2024 2:14 PM CDT [facility] PAC CHEMISTRY ORDERABLES Susan l Result [facility] [address] [place] [address] * (ABNORMAL) CMP (COMPREHENSIVE METABOLIC PANEL) (06/12/2024 2:14 PM CDT) Pathologist [facility] SODIUM 140 136 - 145 mmol/L 06/12/2024 4:04 PM CDT [facility] POTASSIUM 3.5 3.5 - 5.1 mmol/L 06/12/2024 4:04 PM CDT [facility] CHLORIDE 109(H) 98 - 107 mmol/L 06/12/2024 4:04 PM CDT [facility] CO2, VENOUS 23 22 - 30 mmol/L 06/12/2024 4:04 PM CDT [facility] ANION GAP 11.5 <18.0 mmol/L 06/12/2024 4:04 PM T [facility] GLUCOSE 136(H) 70 - 99 mg/dL 06/12/2024 4:04 PM CDT [facility] BUN 12 5 - 18 mg/dL 06/12/2024 4:04 PM T [facility] CREATININE, BLOOD 0.73 0.60 - 1.00 mg/dL 06/12/2024 4:04 PM T [facility] BUN/CREATININE RATIO 16 12 - 20 ratio 06/12/2024 4:04 PM T [facility] TOTAL PROTEIN 6.4 6.3 - 8.2 g/dL 06/12/2024 4:04 PM T [facility] ALBUMIN 3.6 3.5 - 5.0 g/dL 06/12/2024 4:04 PM T [facility] A/G RATIO 1.3 1.0 - 2.2 06/12/2024 4:04 PM T [facility] CALCIUM 9.1 8.7 - 10.5 mg/dL 06/12/2024 4:04 PM T [facility] T BILI 0.2 0.2 - 1.2 mg/dL 06/12/2024 4:04 PM CDT [facility] SGOT (AST) 20 5 - 34 U/L 06/12/2024 4:04 PM T [facility] SGPT (ALT) 37 0 - 55 U/L 06/12/2024 4:04 PM T [facility] ALKALINE PHOSPHATASE 59 40 - 150 U/L 06/12/2024 4:04 PM T [facility] IS THE PATIENT REQUIRED TO BE FASTING? No 06/12/2024 4:04 PM T [facility] GFR, ESTIMATED >60 >=60 06/12/2024 4:04 PM CDT [facility] Comment: Creatinine Clearance is the preferred criteria for selecting drug dose adjustments in renally impaired patients. ??The GFR is provided as additional pertinent clinical information. GFR is reported in mL/min/1.73 sq m. Calculation based on the Chronic Kidney Disease Epidemiology Collaboration (CKD- EPI) equation refit without adjustment for race. GFR, EST. >60 >=60 024 4:04 PM CDT [facility] GFR, EST. NONAFRICAN >60 >=60 06/12/2024 4:04 PM CDT [facility] Blood Sub-Q Port Venou s Access Device (Medi-Port, Implanted Port) / Unknown 06/12/2024 2:14 PM CDT 06/12/2024 2:14 PM CDT Markus Finley MD CHEMISTRY ORDERABLES Fin al Result [facility] [address] [place] [address] documented in this encounter Visit Diagnoses Diagnosis [...] mg documented in this encounter Care Teams Behavioral Health Care Coordinator Relationship Specialty Start Date End Date Pritesh Chu MD [address] [place] [address] PCP - General Family Medicine 04/18/24 Markus Finley MD [address] [place] [address] Consulting Physician Medical Oncology 04/18/24 documented as of this encounter
--- OUTSIDE RECORDS SUMMARY | 2024-10-26 10:55 | XMS_ITS | Encounter Summary ---
Author Organization [facility] Address [address] [facility] [place] [address] Phone Care Team Providers Care Sales Training Coordinator Name Role Phone Pritesh Chu MD Primary Care Provider [phone] Markus Finley MD Unavailable [phone] Encounter Details Date Type Department Care Team (Late st Contact Info) Description 06/25/2024 Telephone [facility] On[facility] [address] [place] [address] Jennifer Bellamy, HAMMERER HELPER [place] Social History Tobacco Use Types Packs/Day Years [...] st Contact Info) Description 11/15/2024 1:00 PM INTERVENTION MANAGER [facility] [address] [place] [address] Markus Finley MD [address] [place] [address] 11/15/2024 2:00 PM INTERVENTION MANAGER [facility]ment [facility] [address] [place] [address] Markus Finley MD [address] [place] [address] Discharge Disposition: Discharged to home or Selfcare documented as of this encounter Visit Diagnoses Not on filedocumented in this encounter Care Teams Sales Training Coordinator Relationship Specialty Start Date End Date Pritesh Chu MD [address] [place] [address] PCP - General Family Medicine 04/18/24 Markus Finley MD [address] [place] [address] Consulting Physician Medical Oncology 04/18/24 documented as of this encounter
--- OUTSIDE RECORDS SUMMARY | 2024-10-26 10:55 | XMS_ITS | Encounter Summary ---
Author Organization [employer] Care Team Providers Care Digital Media Manager Name Role Phone Pritesh Chu MD Primary Care Provider [phone] Markus Finley MD Unavailable [phone] Encounter Details Date Type Department Care Team (Latest Contact Info) Description 07/03/2024 Travel Social History Tobacco Use Types Packs/Day Years Used Date Smoking Tobacco: Former Cigarettes 0.5 8.5 S tarted: 04/18/2016 Smokeless Tobacco: Never Alcohol Use Standard Drinks/Week Comments Yes 0 (1 standard drink = 0.6 oz pur e alcohol) [facility] Utilities Answer Date Recorded In the past 12 months has [employer], gas, oil, or water [employer] threatened to shut off services in [...] often do you attend chur ch or anabaptist services? Never 06/27/2024 Do you belong to any clubs o r organizations such as samaritan groups, unions, fraternal or athletic groups, or [...] and heating? Not hard at all 06/27/2024 [facility] [place] of Occupat ional Health - Occupational Stress [...] any time in the past 12 m [facility], were you homeless or living [...] st Contact Info) Description 11/15/2024 1:00 PM COUNTER DISH CARRIER [facility] [address] [place] [address] Markus Finley MD [address] [place] [address] 11/15/2024 2:00 PM COUNTER DISH CARRIER [facility] [address] [place] [address] Markus Finley MD [address] [place] [address] Discharge Disposition: Discharged to home or Selfcare documented as of this encounter Visit Diagnoses Not on filedocumented in this encounter Care Teams Digital Media Manager Relationship Specialty Start Date End Date Pritesh Chu MD [address] [place] [address] PCP - General Family Medicine 04/18/24 Markus Finley MD [address] [place] [address] Consulting Physician Medical Oncology 04/18/24 documented as of this encounter
--- OUTSIDE RECORDS SUMMARY | 2024-10-26 10:55 | XMS_ITS | Encounter Summary ---
Author Organization [facility] Address [address] [place] [address] Phone Care Team Providers Care Probation And Parole Officer Name Role Phone Pritesh Chu MD Primary Care Provider [phone] Markus Finley MD Unavailable [phone] Reason for Referral * Radiology Services (Routine) - Closed Specialty Diagnoses / Procedures Referred By Delbert villareal Referred To Contact Radiology Diagnoses Metastatic melanoma (HCC) Procedures PET CT TUMOR IMAGING SKULL BASE TO MID THIGH PET CT TUMOR IMAGING SKULL BASE TO MID THIGH Markus Finley MD [address] [place] [address] Phone: tel: fax: [facility] [address] [place] [phone] Phone: tel: fax: Referral ID Status Reason Start Date Expiration Date Visits Re quested Visits Authorized [id number] Closed 07/12/2024 1 1 Reason for Visit * Reason Comments 1 week f/u * Episode Based Medications (Routine) - Closed Specialty Diagnoses / Procedures Referred By Delbert t Referred To Contact Diagnoses Metastatic melanoma (HCC) Markus Finley MD [address] [place] [address] Phone: tel: fax: [facility] [address] [place] [phone] Phone: tel: fax: Referral ID Status Reason Start Date Expiration Date Visits Re quested Visits Authorized [id number] Closed 04/19/2024 1 30 Encounter Details Date Type Department Care Team (Late st Contact Info) Description 07/12/2024 10:20 AM CDT Office Visit [facility] [address] [place] [phone] [place] [address] [place] [address] Metastatic melanoma (HCC) (Primary Dx); Immunotherapy; Diarrhea due to drug Discharge Disposition: Discharged to home or Selfcare Social History Tobacco Use Types Packs/Day Years Used Date Smoking Tobacco: Former Cigarettes 0.5 8.5 S tarted: 04/18/2016 Smokeless Tobacco: Never Tobacco Cessation:Counseling Given: Not Answered Alcohol Use Standard Drinks/Week Comments Yes 0 (1 standard drink = 0.6 oz pur e alcohol) [facility] Utilities Answer Date Recorded In the past 12 months has [employer], oil, or water [employer] threatened to shut off services in your home? Patient declined 08/01/2024 Social Connection and Isolation Panel [NHANES] A nswer Date Recorded In a typical week, how many times do you talk on the phone with family, friends, or neighbors? Patient declined 08/01/2024 How often do you get togethe r with friends or relatives? Patient declined 08/01/2024 How often do you attend worship or adventism serv ices? Patient declined 08/01/2024 [...] [facility] of Occupat ional [facility] - Occupational Stress Questionnaire Answer Date [...] IMAGING STUDIES: CT abdomen pelvis done at [facility] on 06/27/2024 No evidence of appendicitis. No [...] complete labs Tuesday prior to treatment at [facility]. Patient will remain on current interventions; [...] go to exchange after hours. 9. Check [id number] in the blood today. Tempus XT on [...] IMAGING STUDIES: CT abdomen pelvis done at [facility] on 06/27/2024 No evidence of appendicitis. No [...] complete labs Tuesday prior to treatment at [facility]. Patient will remain on current interventions; [...] go to exchange after hours. 9. Check [id number] in the blood today. Tempus XT on [...] for Markus Moses MD. 09/16/2024, 10:44 AM PEDIATRIC PHYSICIAN The documentation recorded by the scribe was completed while in the exam room with me and the patient. The documentation accurately reflects the service I personally performed and the decisions made by me. I have confirmed and edited the documentation as necessary. Markus Finley MD 09/16/2024, 10:44 AM PEDIATRIC PHYSICIAN ATRIC PHYSICIAN documented in this encounter Miscellaneous Notes * [...] st Contact Info) Description 11/15/2024 1:00 PM PEDIATRIC PHYSICIAN Lab [facility] [address] [place] [address] Markus Finley MD [address] [place] [address] 11/15/2024 2:00 PM PEDIATRIC PHYSICIAN Appointment [facility] [address] [place] [address] Markus Finley MD [address] [place] [address] Discharge Disposition: Discharged to home or Selfcare [...] Diarrhea documented in this encounter Care Teams Probation And Parole Officer Relationship Specialty Start Date End Date Pritesh Chu MD [address] [place] [address] PCP - General Family Medicine 04/18/24 Markus Finley MD [address] [place] [address] Consulting Physician Medical Oncology 04/18/24 documented as of this encounter
--- OUTSIDE RECORDS SUMMARY | 2024-10-26 10:55 | XMS_ITS | Encounter Summary ---
Author Organization [employer] Care Team Providers Care Preparation Center Coordinator Name Role Phone Pritesh Chu MD Primary Care Provider [phone] Markus Finley MD Unavailable [phone] Encounter Details Date Type Department Care Team [...] Recorded In the past 12 months has [employer], gas, oil, or water [employer] threatened to shut off services in your [...] attend chur ch or zoroastrian services? Never 06/27/2024 Do you belong to [...] and heating? Not hard at all 06/27/2024 [facility] of Occupat ional Health - Occupational Stress [...] Contact Info) Description 11/15/2024 1:00 PM SUPERVISOR SPINNING Lab [facility] 1 [place] [address] Markus Finley MD [address] [place] [address] 11/15/2024 2:00 PM SUPERVISOR SPINNING [facility] 1 [place] [address] Markus Finley MD [address] [place] [address] Discharge Disposition: Discharged to home or Selfcare documented as of this encounter Visit Diagnoses Not on filedocumented in this encounter Care Teams Preparation Center Coordinator Relationship Specialty Start Date End Date Pirtesh Chu MD [address] [place] [address] PCP - General Family Medicine 04/18/24 Markus Finley MD [address] [place] [address] Consulting Physician Medical Oncology 04/18/24 documented as of this encounter
--- OUTSIDE RECORDS SUMMARY | 2024-10-26 10:55 | XMS_ITS | Encounter Summary ---
Author Organization [facility] Care Team Providers Care Leaf Stripper Name Role Phone Pritesh Chu MD Primary Care Provider [phone] Markus Finley MD Unavailable [phone] Encounter Details Date Type Department Care Team [...] st Contact Info) Description 11/15/2024 1:00 PM CUTTING SUPERVISOR Lab [facility] Services [address] [place] [address] Markus Finley MD [address] [place] [address] 11/15/2024 2:00 PM CUTTING SUPERVISOR Appointment [facility] [address] [place] [address] Markus Finley MD [address] [place] [address] Discharge Disposition: Discharged to home or Selfcare documented as of this encounter Visit Diagnoses Not on filedocumented in this encounter Care Teams Leaf Stripper Relationship Specialty Start Date End Date Pritesh Chu MD [address] [place] [address] PCP - General Family Medicine 04/18/24 Markus Finley MD [address] [place] [address] Consulting Physician Medical Oncology 04/18/24 documented as of this encounter
--- OUTSIDE RECORDS SUMMARY | 2024-10-26 10:55 | XMS_ITS | Encounter Summary ---
Author Organization [employer] Care Team Providers Care Waste Removalist Name Role Phone Pritesh Chu MD Primary Care Provider [phone] Markus Finley MD Unavailable [phone] Encounter Details Date Type Department Care Team [...] Recorded In the past 12 months has [employer], gas, oil, or water [employer] threatened to shut off services in your [...] often do you attend chur ch or nondenominational services? Never 06/27/2024 Do you belong to [...] hard at all 06/27/2024 [facility] of Occupat ional Health - Occupational Stress [...] living in a halfway (including now)? No 06/27/2024 Comments No Sex [...] st Contact Info) Description 11/15/2024 1:00 PM CHILD CARE CENTRE DIRECTOR [facility] [address] [place] [address] Markus Finley MD [address] [place] [address] 11/15/2024 2:00 PM CHILD CARE CENTRE DIRECTOR [facility] [address] [place] [address] Markus Finley MD [address] [place] [address] Discharge Disposition: Discharged to home or Selfcare documented as of this encounter Visit Diagnoses Not on filedocumented in this encounter Care Teams Waste Removalist Relationship Specialty Start Date End Date Pritesh Chu MD [address] [place] [address] PCP - General Family Medicine 04/18/24 Markus Finley MD [address] [place] [address] Consulting Physician Medical Oncology 04/18/24 documented as of this encounter
--- OUTSIDE RECORDS SUMMARY | 2024-10-26 10:55 | XMS_ITS | Encounter Summary ---
Author Organization [facility] Address [address] [place] [address] Phone Care Team Providers Care Singe Winder Name Role Phone Pritesh Chu MD Primary Care Provider [phone] Markus Finley MD Unavailable [phone] Reason for Visit * Episode Based Medications (Routine) - Closed Specialty Diagnoses / Procedures Referred By Contross t Referred To Contact Diagnoses Metastatic melanoma (HCC) Markus Finley MD [address] [place] [address] Phone: tel: fax: [facility] [address] [place] [address] Phone: tel: fax: Referral ID Status Reason Start Date Expiration Date Visits Re quested Visits Authorized [id number] Closed 04/19/2024 1 30 Encounter Details Date Type Department Care Team (Late st Contact Info) Description 05/22/2024 10:00 AM CDT Clinical Support [facility] [address] [place] [address] Markus Finley MD [address] [place] [address] Metastatic melanoma (HCC) (Primary Dx) Discharge Disposition: [...] Contact Info) Description 11/15/2024 1:00 PM COMMUNICATIONS OFFICER Lab [facility] 1 [place] [address] Markus Finley MD [address] [place] [address] 11/15/2024 2:00 PM COMMUNICATIONS OFFICER [facility]ointment [facility] 1 [place] [address] Markus Finley MD [address] [place] [address] Discharge Disposition: Discharged to home or Selfcare [...] mg documented in this encounter Care Teams Singe Winder Relationship Specialty Start Date End Date Pritesh Chu MD [address] [address] PCP - General Family Medicine 04/18/24 Markus Finley MD [address] [place] [address] Consulting Physician Medical Oncology 04/18/24 documented as of this encounter
--- OUTSIDE RECORDS SUMMARY | 2024-10-26 10:55 | XMS_ITS | Encounter Summary ---
Author Organization [facility] Address [address] [place] [address] Phone Care Team Providers Care Scholastic Aptitude Test Grader Name Role Phone Pritesh Chu MD Primary Care Provider [phone] Markus Finley MD Unavailable [phone] Encounter Details Date Type Department Care Team (Late st Contact Info) Description 05/24/2024 Telephone [facility] [address] [place] [address] Markus Finley MD [address] [place] [address] Social History Tobacco Use Types Packs/Day Years [...] st Contact Info) Description 11/15/2024 1:00 PM EMBEDDED CASE MANAGER [facility] [address] [place] [address] Markus Finley MD [address] [place] [address] 11/15/2024 2:00 PM EMBEDDED CASE MANAGER [facility] [address] [place] [address] Markus Finley MD [address] [place] [address] Discharge Disposition: Discharged to home or Selfcare documented as of this encounter Visit Diagnoses Not on filedocumented in this encounter Care Teams Scholastic Aptitude Test Grader Relationship Specialty Start Date End Date Pritesh Chu MD [address] [place] [address] PCP - General Family Medicine 04/18/24 Markus Finley MD [address] [place] [address] Consulting Physician Medical Oncology 04/18/24 documented as of this encounter
--- OUTSIDE RECORDS SUMMARY | 2024-10-26 10:55 | XMS_ITS | Encounter Summary ---
Author Organization [facility] Address [address] [place] [address] Phone Care Team Providers Care Scientific Systems Analyst Name Role Phone Pritesh Chu MD Primary Care Provider [phone] Markus Finley MD Unavailable Encounter Details Date Type Department Care Team (Late st Contact Info) Description 06/25/2024 Refill [facility] [address] [place] [address] Markus Finley MD [address] [place] [address] Social History Tobacco Use Types Packs/Day Years Used Date Smoking Tobacco: Former Cigarettes 0.5 8.5 S tarted: 04/18/2016 Smokeless Tobacco: Never Alcohol Use Standard Drinks/Week Comments Yes 0 (1 standard drink = 0.6 oz pur e alcohol) [facility] Utilities Answer Date Recorded In the [...] and heating? Not hard at all 06/27/2024 [facility] [place] of Occupat ional Health - Occupational Stress [...] any time in the past 12 m [facility], were you homeless or living [...] st Contact Info) Description 11/15/2024 1:00 PM LACE INSPECTOR Lab [facility] Laboratory Services 1 [facility] [place] [address] Markus Finley MD [address] [place] [address] 11/15/2024 2:00 PM LACE INSPECTOR Appointment [facility] 1 [facility] [place] [address] Markus Finley MD [address] [place] [address] Discharge Disposition: Discharged to home or Selfcare documented as of this encounter Visit Diagnoses Diagnosis Diarrhea due to drug- Primary Diarrhea documented in this encounter Care Teams Scientific Systems Analyst Relationship Specialty Start Date End Date Pritesh Chu MD [address] [place] [address] PCP - General Family Medicine 04/18/24 Markus Finley MD [address] [place] [address] Consulting Physician Medical Oncology 04/18/24 documented as of this encounter
--- OUTSIDE RECORDS SUMMARY | 2024-10-26 10:55 | XMS_ITS | Encounter Summary ---
Author Organization [employer] Care Team Providers Care Home School Teacher Name Role Phone Pritesh Chu MD Primary Care Provider Markus Finley MD Unavailable [phone] Encounter Details Date Type Department Care Team (Latest Contact Info) Description 07/06/2024 Travel Social History Tobacco Use Types Packs/Day Years Used Date Smoking Tobacco: Former Cigarettes 0.5 8.5 S tarted: 04/18/2016 Smokeless Tobacco: Never Alcohol Use Standard Drinks/Week Comments Yes 0 (1 standard drink = 0.6 oz pur e alcohol) [facility] Utilities Answer Date Recorded In the past 12 months has [employer], gas, oil, or water [employer] threatened to shut off services in [...] often do you attend chur ch or hoahaoism services? Never 06/27/2024 Do you belong to [...] and heating? Not hard at all 06/27/2024 [facility] of Occupat ional Health - Occupational Stress [...] st Contact Info) Description 11/15/2024 1:00 PM CYLINDER HEAD ASSEMBLER [facility] [address] [place] [address] Markus Finley MD [address] [place] [address] 11/15/2024 2:00 PM CYLINDER HEAD ASSEMBLER [facility] 1 [place] [address] Markus Finley MD [address] [place] [address] Discharge Disposition: Discharged to home or Selfcare documented as of this encounter Visit Diagnoses Not on filedocumented in this encounter Care Teams Home School Teacher Relationship Specialty Start Date End Date Pritesh Chu MD [address] [place] [address] PCP - General Family Medicine 04/18/24 Markus Finley MD [address] [place] [address] Consulting Physician Medical Oncology 04/18/24 documented as of this encounter
--- OUTSIDE RECORDS SUMMARY | 2024-10-26 10:55 | XMS_ITS | Encounter Summary ---
Author Organization [facility] Address [address] [place] [address] Phone Care Team Providers Care Manager Process Name Role Phone Pritesh Chu MD Primary Care Provider [phone] Markus Finley MD Unavailable [phone] Reason for Visit * Episode Based Medications (Routine) - Closed Specialty Diagnoses / Procedures Referred By Contross t Referred To Contact Diagnoses Metastatic melanoma (HCC) Markus Finley MD [address] [place] [address] Phone: tel: fax: [facility] [address] [place] [address] Phone: tel: fax: Referral ID Status Reason Start Date Expiration Date Visits Re quested Visits Authorized [id number] Closed 04/19/2024 1 30 Encounter Details Date Type Department Care Team (Late st Contact Info) Description 07/17/2024 1:30 PM CDT Clinical Support [facility] [address] [place] [address] Markus Finley MD [address] [place] [address] Metastatic melanoma (HCC) (Primary Dx) Discharge Disposition: [...] often do you attend chur ch or synagogue services? Never 06/27/2024 Do you belong to [...] and heating? Not hard at all 06/27/2024 [facility] [place] of Occupat ional Health - Occupational Stress [...] infusion. VS obtained. Reviewed labs completed at [facility] yesterday; [place] treatment. No diarrhea for at least 3 days. Per DAVID DENNIS for treatment. Port accessed x1 attempt; flushed easily with no blood return. Medication given per MD order and pt tolerated well. PET scan ordered sent to [place] and referral updated in [facility]. Port flushed with NS and heparin per protocol and port needle removed. Port site covered with bandaid. Patient left tx area in stable conditionwith no further requests. documented in this encounter Plan of Treatment Upcoming Encounters Date Type Department Care Team (Late st Contact Info) Description 11/15/2024 1:00 PM SURVEY RESEARCH ASSOCIATE Lab [facility] [address] [place] [address] Markus Finley MD [address] [place] [address] 11/15/2024 2:00 PM SURVEY RESEARCH ASSOCIATE [facility]ment [facility] 1 [facility] [place] [address] Markus Finley MD [address] [place] [address] Discharge Disposition: Discharged to home or Selfcare [...] mg documented in this encounter Care Teams Manager Process Relationship Specialty Start Date End Date Pritesh Chu MD [address] [place] [address] PCP - General Family Medicine 04/18/24 Markus Finley MD [address] [place] [address] Consulting Physician Medical Oncology 04/18/24 documented as of this encounter
--- OUTSIDE RECORDS SUMMARY | 2024-10-26 10:55 | XMS_ITS | Encounter Summary ---
Author Organization [facility] Address [address] [place] [address] Phone Care Team Providers Care Merchant Mariner Name Role Phone Kellen Chu MD Primary Care Provider Markus Finley MD Unavailable [phone] Reason for Visit * Reason Comments Fatigue * Auth/Cert (Routine) Specialty Diagnoses / Procedures Referred By Contross t Referred To Contact Diagnoses Dehydration Rebeca Andrea MD [address] [place] [address] Phone: tel: fax: Referral ID Status Reason Start Date Expiration Date Visits Re quested Visits Authorized [id number] 1 1 Encounter Details Date Type Department Care Team (Late st Contact Info) Description 07/23/2024 7:57 AM CDT - 07/24/2024 6:54 PM CDT Emergency [facility] Medical [address] [place] [phone] Hayden Angel MD [address] [place] [address] Rebeca Andrea MD [address] [place] [address] Lee Lan MD [address] [place] [address] Dehydration Discharge Disposition: Discharged to home or [...] declined 07/25/2024 How often do you attend cheondoism or zoroastrian serv ices? Patient declined 07/25/2024 Do you [...] medical care, and heating? Patient declined 07/25/2024 [facility] [...] MD - 07/24/2024 12:47 PM CDT [facility] DISCHARGE SUMMARY Name: Dayanara Hilton Age: 24 [...] 1 week(s) [address] [place] [address] Markus Finley MD Medical Oncology, Hematology, Internal Medicine Call in 1 week(s) [address] [facility] [address] Discharge Instructions: Discharge Condition: improved Disposition: Home [...] of depression and obesity, who presented to [facility] with complaints of dehydration.Pt reports since her [...] found for: HGBA1C No results found for: [id number] No results found for: CPK , CPKI , CKMB , CKMBNI , CKMBPOCT , CKMBRELINDX , TROPONINI , POCTRP No results found for: FERRITIN No results found for: FOLATE No results found for: PHARTERIAL , PO2ART , TVU5UNE , CO2ART , O2ART Lab Results Component [...] MOUTH DAILY potassium chloride SA 20 MEQ [id number] Commonly known as: KLORCON M Take 3 [...] you very much for allowing the [facility] Adult Hospitalist Service to participate in [...] this encounter H&P Notes * Esteban Mcgovern, FLOOR CARE SPECIALIST, MANAGER LIFE INSURANCE - 07/23/2024 3:19 PM CDT [facility] ADMISSION HISTORY & PHYSICAL HPI: Dayanara Hilton is a 24 y.o. female with Melanoma to her left foot and is undergoing immunotherapy with oncologist Dr. Finley, hx of depression and obesity, who presented to [facility] with complaints of dehydration. Pt reports since [...] results found for: PHARTERIAL , PO2ART , RHZ1SCB , CO2ART , O2ART No results found [...] with patient and/or family and/or Power of Evaporator Repairer approximately 16 minutes. Discussed CPR/Intubation/Treatment Goals/Quality of life/Intensity of Care. Patient desires: Full Code VTE Prophylaxis: Lovenox 40mg Q24h Thank you very much for allowing the [facility] Adult Hospitalist Service to participate in the care of this patient By: Esteban Mcgovern APRN, CNP, 07/23/2024, 3:19 PM CDT Primary Care Physician: KELLEN CHU MD Cosigned by Rebeca Andrea MD at 08/02/2024 8:20 AM CDT documented in this encounter ED Notes * Martir Ramires RN - 07/23/2024 3:25 PM CDT to floor per stretcher with used car salesperson. pt's iv site to left hand remains [...] 90 min Stress: Stress Concern Present (06/27/2024) [place] [employer] - Occupational Stress Questionnaire Feeling of Stress : To some extent Social Integration: Socially Isolated (06/27/2024) Social Connection and Isolation Panel [NHANES] Frequency of Communication with Friends and Family: More than three times a week Frequency of Social Gatherings with Friends and Family: More than three times a week Attends Rastafarian Services: Never Active Member of Clubs or [...] st Contact Info) Description 11/15/2024 1:00 PM TRAFFIC SUPERVISOR Lab [facility] Services 1 [facility] [place] [address] Markus Finley MD [address] [place] [address] 11/15/2024 2:00 PM TRAFFIC SUPERVISOR Appointment [facility] MRI 1 [facility] [place] [place] [address] Markus Finley MD [address] [place] [address] Discharge Disposition: Discharged to home or Selfcare [...] DAYS, FINAL RESULT 07/30/2024 3:25 PM CDT [facility] Culture BLOOD SPECIMEN / Unknown Venipuncture / Unknown 07/24/2024 12:52 PM CDT 07/24/2024 1:46 PM CDT Narrative [facility] - 07/30/2024 3:25 PM CDT [Auto-resulted by a batch job.] us Lee Lan MD MICROBIOLOGY - GENERAL O RDERABLES Edited Result - Final [facility] [address] [place] [address], [place] * (ABNORMAL) BMP (07/24/2024 12:52 PM CDT) Only the most recent of2 resultswithin the time period is included. SODIUM 134(L) 136 - 145 mmol/L 07/24/2024 1:30 PM CDT [facility] POTASSIUM 2.4(LL) 3.5 - 5.1 mmol/L 07/24/2024 1:30 PM CDT [facility] CHLORIDE 99 98 - 107 mmol/L 07/24/2024 1:30 PM CDT [facility] CO2, VENOUS 18(L) 22 - 30 mmol/L 07/24/2024 1:30 PM CDT [facility] ANION GAP 19.4(H) <18.0 mmol/L 07/24/2024 1:30 PM CDT [facility] GLUCOSE 94 70 - 99 mg/dL 07/24/2024 1:30 PM CDT [facility] BUN 18 5 - 18 mg/dL 07/24/2024 1:30 PM CDT [facility] CREATININE, BLOOD 1.36(H) 0.60 - 1.00 mg/dL 07/24/2024 1:30 PM CDT [facility] BUN/CREATININE RATIO 13 12 - 20 ratio 07/24/2024 1:30 PM CDT [facility] CALCIUM 9.2 8.7 - 10.5 mg/dL 07/24/2024 1:30 PM CDT [facility] GFR, ESTIMATED 56(L) >=60 07/24/2024 1:30 PM CDT [facility] Comment: Creatinine Clearance is the preferred criteria for selecting drug dose adjustments in renally impaired patients. ??The GFR is provided as additional pertinent clinical information. GFR is reported in mL/min/1.73 sq m. Calculation based on the Chronic Kidney Disease Epidemiology Collaboration (CKD- EPI) equation refit without adjustment for race. GFR, EST. 58(L) >=60 024 1:30 PM CDT [facility] GFR, EST. NONAFRICAN 48(L) >=60 07/24/2024 1:30 PM CDT [facility] Blood BLOOD SPECIMEN / Unknown Venipuncture / Unknown 07/24/2024 12:52 PM CDT 07/24/2024 1:07 PM CDT us Lee Lan MD CHEMISTRY ORDERABLES Fin al Result [facility] [address] [place] [address] * (ABNORMAL) Manual Differential (07/24/2024 5:48 AM CDT) BANDS % 30.0 % 07/24/2024 8:31 AM CDT [facility] NEUTROPHILS % 43.0(L) 47.0 - 73.0 % 07/24/2024 8:31 AM CDT [facility] LYMPHOCYTES % 14.0(L) 18.0 - 42.0 % 07/24/2024 8:31 AM CDT [facility] MONOCYTES % 12.0 4.0 - 12.0 % 07/24/2024 8:31 AM CDT [facility] METAMYELOCYTES % 1.0(H) <=0.0 % 07/24/20 8:31 AM CDT [facility] NEUTROPHILS ABSOLUTE 4.88 1.60 - 7.70 10(3)/mcL 07/24/2024 8:31 AM CDT [facility] LYMPHOCYTES ABSOLUTE 0.94(L) 1.30 - 3.20 10(3)/mcL 07/24/2024 8:31 AM CDT [facility] MONOCYTES ABSOLUTE 0.80 0.20 - 1.00 10(3)/mcL 07/24/2024 8:31 AM CDT [facility] DOHLE BODIES 3+ 07/24/2024 8:31 AM CDT [facility] LARGE PLATELETS 1+ 8:31 AM CDT [facility] RBC MORPH STATUS Normal 07/24/20 8:31 AM CDT [facility] Blood Venipuncture / Unknown 07/24/2024 5:48 AM CDT 07/24/2024 7:07 AM CDT us Esteban Mcgovern FLOOR CARE SPECIALIST, MANAGER LIFE INSURANCE HEMATOLOGY ORDERABLES F inal Result [facility] [address] [place] [address] * (ABNORMAL) CBC with Auto Differential (07/24/2024 5:48 AM CDT) Only the most recent of2 resultswithin the time period is included. WBC 6.68 4.00 - 12.00 10(3)/mcL 07/24/2024 8:31 AM CDT [facility] RBC 5.23 3.80 - 5.30 10(6)/mcL 07/24/2024 8:31 AM CDT [facility] HEMOGLOBIN (HGB) 15.5 12.0 - 15.8 g/dL 07/24/2024 8:31 AM CDT [facility] HEMATOCRIT (HCT) 47.2(H) 36.0 - 47.0 % 07/24/2024 8:31 AM CDT [facility] MCV 90.2 82.0 - 96.0 fL 07/24/2024 8:31 AM CDT [facility] MCH 29.6 26.0 - 34.0 pg 07/24/2024 8:31 AM CDT [facility] MCHC 32.8 31.0 - 36.0 g/dL 07/24/2024 8:31 AM CDT [facility] PLATELET COUNT 323 140 - 440 10(3)/mcL 07/24/2024 8:31 AM CDT [facility] RDW 14.5 11.8 - 15.5 % 07/24/2024 8:31 AM CDT [facility] MPV 10.1 9.7 - 12.4 fL 07/24/2024 8:31 AM CDT [facility] NRBC PER 100 WBC 0 07/24/2024 8:31 AM CDT [facility] RESULTS ARE CONSISTENT WITH PERIPHERAL SMEAR REVIEW Yes 07/24/2024 8:31 AM CDT [facility] Blood Venipuncture / Unknown 07/24/2024 5:48 AM CDT 07/24/2024 7:07 AM CDT us Esteban Mcgovern APRN, MANAGER LIFE INSURANCE HEMATOLOGY ORDERABLES F inal Result Performing Organization Address City/[facility]/ZIP Co de Phone Number [facility] [address] [place] [address] * C. DIFF BY PCR (07/24/2024 12:49 AM CDT) Pathologist [facility] C DIFF TOXIN DNA BY PCR Negative Negative, Invalid 07/24/2024 1:43 AM CDT [facility] Other STOOL SPECIMEN / Unknown Non-Phlebotomy Collection / Unknown 07/24/2024 12:49 AM CDT 07/24/2024 12:53 AM CDT us Esteban Mcgovern APRN, MANAGER LIFE INSURANCE MICROBIOLOGY - GENERAL ORDERABLES Final Result [facility] [address] [place] [address] * Culture, Stool (07/24/2024 12:49 AM CDT) CULTURE RESULTS NO SALMONELLA, SHIGELLA OR E COLI 0157 ISOLATED 07/25/2024 12:12 PM CDT [facility] CULTURE RESULTS NEGATIVE FOR CAMPYLOBACTER ANTIGEN 07/25/2024 12:12 PM CDT [facility] CULTURE RESULTS SHIGA TOXIN 1 AND SHIGA TOXIN 2 NOT DETECTED 07/25/2024 12:12 PM CDT [facility] CULTURE RESULTS Heavy Mixed taye 07/25/2024 12:12 PM CDT [facility] Comment:PROBABLE USUAL TAYE FOR THIS SPECIMEN SOURCE Culture STOOL SPECIMEN / Unknown Non-Phlebotomy Collection / Unknown 07/24/2024 12:49 AM CDT 07/24/2024 12:53 AM CDT us Esteban Mcgovern FLOOR CARE SPECIALIST, MANAGER LIFE INSURANCE MICROBIOLOGY - GENERAL ORDERABLES Final Result Performing Organization Address City/[facility]/ZIP Co de Phone Number [facility] [address] [place] [address], [place] * RHYTHM STRIP (07/24/2024 12:00 AM CDT) Only the most recent of5 resultswithin the time period is included. 07/24/2024 us Provider Scan IMG ECG ORDERABLES Final Result Performing Organization Address City/[facility] Co de Phone Number RESULTING AGENCY * Ur Test Qual (07/23/2024 12:31 PM CDT) PREG TEST,MONOCLONA L Negative 07/23/2024 10:33 PM CDT [facility] Urine URINE SPECIMEN / Unknown Non-Phlebotomy Collection / Unknown 07/23/2024 12:31 PM CDT 07/23/2024 12:55 PM CDT us Hayden Angel MD URINE ORDERABLES Final R esult Performing Organization Address City/[facility]/ZIP Co de Phone Number [facility] [address] [place] [address] * (ABNORMAL) Urinalysis with Reflex (07/23/2024 12:31 PM CDT) SPECIFIC GRAVITY 1.015 1.003 - 1.030 07/23/2024 1:20 PM CDT [facility] URINE PH 6.0 5.0 - 9.0 07/23/2024 1:20 PM CDT [facility] WBC ESTERASE Negative Negative 07/23/2024 1:20 PM CDT [facility] NITRITE Negative Negative 07/23/2024 1:20 PM CDT [facility] PROTEIN, RANDOM URINE 30 mg/dL(A) Negative 07/23/2024 1:20 PM CDT [facility] URINE GLUCOSE, QUAL Negative Negative 07/23/2024 1:20 PM CDT [facility] URINE KETONES Negative Negative 07/23/2024 1:20 PM CDT [facility] UROBILINOGEN Normal Normal mg/dL 07/23/2024 1:20 PM CDT [facility] URINE BLOOD 10 /uL(A) Negative chidi/ul 07/23/2024 1:20 PM CDT [facility] URINALYSIS COLOR Yellow 07/23/20 1:20 PM CDT [facility] URINALYSIS CLARITY Clear 07/23/2024 1:20 PM CDT [facility] WBC (Urine) 11-20(A) Negative, 0-5 /hpf 07/23/2024 1:20 PM CDT [facility] URINE RBC'S 3-5(A) Negative, 0-2 /hpf 07/23/2024 1:20 PM CDT [facility] EPITHELIAL CELLS Moderate amount /lpf 07/23/2024 1:20 PM CDT [facility] BACTERIA, URINE Few(A) Negative /hpf 07/23/2024 1:20 PM CDT [facility] CASTS 5-10/LPF Hyaline Casts(A) Negative, 0-2/lpf, 3-5/lpf, 6-10/lpf, 11-20/lpf, >20/lpf /lpf 07/23/2024 1:20 PM CDT [facility] Urine URINE SPECIMEN / Unknown Non-Phlebotomy Collection / Unknown 07/23/2024 12:31 PM CDT 07/23/2024 12:55 PM CDT Hayden Angel MD URINE ORDERABLES Final R esult Performing Organization Address City/[facility]/ZIP Co de Phone Number [facility] [address] [place] [address] * Lactic Acid (Lactate) (07/23/2024 11:28 AM CDT) Only the most recent of2 resultswithin the time period is included. [facility] LACTIC ACID 1.3 0.7 - 2.0 mmol/L 07/23/2024 11:53 AM CDT [facility] Blood Venipuncture / Unknown 07/23/2024 11:28 AM CDT 07/23/2024 11:34 AM CDT Hayden Angel MD CHEMISTRY ORDERABLES Fin al Result Performing Organization Address City/[facility] Co de Phone Number [facility] [address] [place] [address] * RSV,SARS-COV-2,INFLUENZA A&B BY PCR (07/23/2024 8:59 AM CDT) [facility] FLU A Negative Negative, Error 07/23/2024 10:38 AM CDT [facility] FLU B Negative Negative 07/23/2024 10:38 AM CDT [facility] RESP SYNC VIRUS Negative Negative 10:38 AM CDT [facility] SARSCOV2 NOT DETECTED (Reference Range for this test is Not Detected) 07/23/2024 10:38 AM CDT [facility] Comment:This test was perfor med by a Reverse Oil Field Technician PCR Method. Swab NASOPHARYNGEAL SWAB / Unknown Non-Phlebotomy Collection / Unknown 07/23/2024 8:59 AM CDT 07/23/2024 9:58 AM CDT Narrative [facility] - 07/23/2024 10:38 AM CDT This test has not been FDA cleared or approved; the test has been authorized by FDA under an Emergency Use Authorization (EUA) for use by laboratories certified under the CLIA that meet the requirements to perform moderate, high or waived complexity tests. Authorized Fact Sheets about this test for providers and patients are available at: https://www.fda.gov/medical-devices/yttibahey-ufuggymquf-qywhrxs-devices/emergen -us e-authorizations Hayden Angel MD MICROBIOLOGY - GENERAL O RDERABLES Final Result [facility] [address] [place] [address] * Critical Care (07/23/2024 8:44 AM CDT) [...] - 145 mmol/L 07/23/2024 9:22 AM CDT [facility] POTASSIUM 3.9 3.5 - 5.1 mmol/L 07/23/2024 9:22 AM CDT [facility] CHLORIDE 103 98 - 107 mmol/L 07/23/2024 9:22 AM T [facility] CO2, VENOUS 17(L) 22 - 30 mmol/L 07/23/2024 9:22 AM T [facility] ANION GAP 19.9(H) <18.0 mmol/L 07/23/2024 9:22 AM CDT [facility] GLUCOSE 110(H) 70 - 99 mg/dL 07/23/2024 9:22 AM T [facility] BUN 13 5 - 18 mg/dL 07/23/2024 9:22 AM [facility] CREATININE, BLOOD 1.61(H) 0.60 - 1.00 mg/dL 07/23/2024 9:22 AM [facility] BUN/CREATININE RATIO 8(L) 12 - 20 ratio 07/23/2024 9:22 AM T [facility] TOTAL PROTEIN 8.7(H) 6.3 - 8.2 g/dL 07/23/2024 9:22 AM [facility] ALBUMIN 5.0 3.5 - 5.0 g/dL 07/23/2024 9:22 AM [facility] A/G RATIO 1.4 1.0 - 2.2 07/23/2024 9:22 AM [facility] CALCIUM 10.8(H) 8.7 - 10.5 mg/dL 07/23/2024 9:22 AM T [facility] T BILI 1.0 0.2 - 1.2 mg/dL 07/23/2024 9:22 AM T [facility] SGOT (AST) 25 5 - 34 U/L 07/23/2024 9:22 AM T [facility] SGPT (ALT) 69(H) 0 - 55 U/L 07/23/2024 9:22 AM CDT [facility] ALKALINE PHOSPHATASE 85 40 - 150 U/L 07/23/2024 9:22 AM CDT [facility] GFR, ESTIMATED 46(L) >=60 07/23/2024 9:22 AM CDT [facility] Comment: Creatinine Clearance is the preferred criteria for selecting drug dose adjustments in renally impaired patients. ??The GFR is provided as additional pertinent clinical information. GFR is reported in mL/min/1.73 sq m. Calculation based on the Chronic Kidney Disease Epidemiology Collaboration (CKD- EPI) equation refit without adjustment for race. GFR, EST. 48(L) >=60 024 9:22 AM CDT [facility] GFR, EST. NONAFRICAN 39(L) >=60 07/23/2024 9:22 AM CDT [facility] Blood Venipuncture / Unknown 07/23/2024 8:20 AM CDT 07/23/2024 8:59 AM CDT Hayden Angel MD CHEMISTRY ORDERABLES Fin al Result [facility] [address] [place] [address] * EKG 12 LEAD (07/23/2024 8:15 AM CDT) Ventricular Rate 126 BPM EXTERNAL EKG Atrial Rate 126 BPM EXTERNAL EKG P-R Interval 146 ms EXTERNAL EKG QRS Duration 80 ms EXTERNAL EKG Q-T Duration 292 ms EXTERNAL EKG QTC CALCULATION 422 ms EXTERNAL EKG P Vernon 33 degrees EXTERNAL EKG R Vernon 11 degrees EXTERNAL EKG T Vernon 113 degrees EXTERNAL EKG 07/23/2024 8:15 AM CDT Impressions EXTERNAL EKG - 07/24/2024 9:19 AM CDT Sinus tachycardia ST & T wave abnormality, consider lateral ischemia Abnormal ECG No previous ECGs available Confirmed by Emily Hall ([id number]) on 07/24/2024 9:19:48 AM Narrative Procedure Note Emily Hall MD - 07/24/2024 IMPRESSION: Sinus tachycardia ST & T wave abnormality, consider lateral ischemia Abnormal ECG No previous ECGs available Confirmed by Emily Hall ([id number]) on 07/24/2024 9:19:48 AM us Hayden Angel [...] 2) increasing dosage, or 3) changing to GAS WORKER. magnesium hydroxide (MILK OF MAGNESIA) 400 MG/5ML [...] documented as of this encounter Care Teams Merchant Mariner Relationship Specialty Start Date End Date Kellen Chu [place] [address] [address] PCP - General Family Medicine 04/18/24 Markus Finley MD [address] [place] [address] Consulting Physician Medical Oncology 04/18/24 documented as of this encounter
--- OUTSIDE RECORDS SUMMARY | 2024-10-26 10:55 | XMS_ITS | Encounter Summary ---
Author Organization [employer] Care Team Providers Care Executive Asst Name Role Phone Pritesh Chu MD Primary Care Provider [phone] Markus Finley MD Unavailable [phone] Encounter Details Date Type Department Care Team (Latest Contact Info) Description 07/04/2024 Travel Social History Tobacco Use Types Packs/Day Years Used Date Smoking Tobacco: Former Cigarettes 0.5 8.5 S tarted: 04/18/2016 Smokeless Tobacco: Never Alcohol Use Standard Drinks/Week Comments Yes 0 (1 standard drink = 0.6 oz pur e alcohol) [facility] Utilities Answer Date Recorded In the past 12 months has [employer], gas, oil, or water howsimple threatened to shut off services in your [...] often do you attend chur ch or rastafarian services? Never 06/27/2024 Do you belong to [...] and heating? Not hard at all 06/27/2024 [facility] of Occupat ional Health - Occupational Stress [...] or living in a penitentiary (including now)? No 06/27/2024 Comments No Sex [...] st Contact Info) Description 11/15/2024 1:00 PM COIL MACHINE SUPERVISOR Lab [facility] [address] [place] [address] Markus Finley MD [address] [place] [address] 11/15/2024 2:00 PM COIL MACHINE SUPERVISOR [facility]ointment [facility] [address] [place] [address] Markus Finley MD [address] [place] [address] Discharge Disposition: Discharged to home or Selfcare documented as of this encounter Visit Diagnoses Not on filedocumented in this encounter Care Teams Executive Asst Relationship Specialty Start Date End Date Pritesh Chu MD [address] [place] [address] PCP - General Family Medicine 04/18/24 Markus Finley MD [address] [place] [address] Consulting Physician Medical Oncology 04/18/24 documented as of this encounter
--- OUTSIDE RECORDS SUMMARY | 2024-10-26 10:55 | XMS_ITS | Encounter Summary ---
Author Organization [facility] Address [address] [place] [address] Phone Care Team Providers Care Global Logistics Manager Name Role Phone Pritesh Chu MD Primary Care Provider [phone] Markus Finley MD Unavailable [phone] Reason for Visit * Reason Onset Date Comments Follow-up 07/02/2024 Encounter Details Date Type Department Care Team (Late st Contact Info) Description 07/02/2024 Post Discharge Follow-up [facility] Nursing Services [address] [place] [address] Arline Rojo, RN [place] Social [...] any clubs o r organizations such as jehovah's witness groups, unions, fraternal or athletic groups, or [...] and heating? Not hard at all 06/27/2024 [facility] of Occupat ional Health - [...] to follow up after recent discharge from [facility] Med-Surg Unit. How are you feeling? I'm [...] st Contact Info) Description 11/15/2024 1:00 PM PROGRAMMER DEVELOPER Lab [facility] Services [address] [place] [address] Markus Finley MD [address] [place] [address] 11/15/2024 2:00 PM PROGRAMMER DEVELOPER Appointment [facility] MRI [address] [place] [phone] Markus Finley MD [address] [place] [address] Discharge Disposition: Discharged to home or Selfcare documented as of this encounter Visit Diagnoses Not on filedocumented in this encounter Care Teams Global Logistics Manager Relationship Specialty Start Date End Date Pritesh Chu MD [address] [place] [address] PCP - General Family Medicine 04/18/24 Markus Finley MD [address] [place] [address] Consulting Physician Medical Oncology 04/18/24 documented as of this encounter
--- OUTSIDE RECORDS SUMMARY | 2024-10-26 10:56 | XMS_ITS ---
Author Organization [facility] Address [address] [place] [address] Phone Care Team Providers Care Parts Facilitator Name Role Phone Pritesh Chu MD Primary Care Provider Markus Finley MD Unavailable [phone] Zander Cha MD Unavailable [facility] Status:Enrolled (Active) Start date:09/24/2024 Enrollment date:09/24/2024 Related social drivers of health:Intimate Partner Violence, Social Connections, Alcohol Use, Tobacco Use, Financial Resource Strain,Depression, Stress, Physical Activity, Food Insecurity, Transportation Needs, Housing Stability, Utilities Continued Care and Services Coordination
--- OUTSIDE RECORDS SUMMARY | 2024-10-26 10:56 | XMS_ITS | Encounter Summary ---
Author Organization [facility] Address [address] [facility] [place] [address] Phone Care Team Providers Care Machine Ironer Name Role Phone Pritesh Chu MD Primary Care Provider [phone] Markus Finley MD Unavailable [phone] Reason for Visit * Reason Comments Follow-up Encounter Details Date Type Department Care Team (Late st Contact Info) Description 05/08/2024 2:15 PM CDT [facility] [address] [place] [id number] Jenn Medellin [address], [address] [place] [address] Metastatic melanoma (HCC) (Primary Dx); Ringworm Discharge [...] - 05/08/2024 2:15 PM CDT May use qliy-ppc-tarlxki antifungal cream to affected area 2-3 times [...] Reviewed and discussed above results. May use etnx-dzs-uyylioa antifungal cream to affected area 2-3 times [...] as outlined above. Patient Instructions May use tpxd-wri-wmjjzwd antifungal cream to affected area 2-3 times [...] st Contact Info) Description 11/15/2024 1:00 PM TOBACCO CHECKOUT CLERK [facility] [address] [place] [address] Markus Finley MD [address] [place] [address] 11/15/2024 2:00 PM TOBACCO CHECKOUT CLERK [facility] [address] [place] [address] Markus Finley MD [address] [place] [address] Discharge Disposition: Discharged to home or Selfcare documented as of this encounter Visit Diagnoses Diagnosis Metastatic melanoma (HCC)- Primary Melanoma of skin, site unspecified Ringworm Dermatophytosis of unspecified site documented in this encounter Care Teams Machine Ironer Relationship Specialty Start Date End Date Pritesh Chu MD [address] [place] [address] PCP - General Family Medicine 04/18/24 Markus Finley MD [address] [place] [address] Consulting Physician Medical Oncology 04/18/24 documented as of this encounter
--- OUTSIDE RECORDS SUMMARY | 2024-10-26 10:56 | XMS_ITS | Encounter Summary ---
Author Organization [facility] Address [address] [facility] [place] [address] Phone Care Team Providers Care Rehabilitation Inspector Name Role Phone Pritesh Chu MD Primary Care Provider [phone] Markus Finley MD Unavailable [phone] Encounter Details Date Type Department Care Team (Late st Contact Info) Description 04/18/2024 3:20 PM CDT Clinical Support [facility] [address] [place] [phone] Markus Finley MD [address] [place] [address] Iron deficiency anemia due to chronic blood [...] st Contact Info) Description 11/15/2024 1:00 PM REAGENT TENDER [facility] [address] [place] [address] Markus Finley MD [address] [place] [address] 11/15/2024 2:00 PM REAGENT TENDER [facility] [address] [place] [address] Markus Finley MD [address] [place] [address] Discharge Disposition: Discharged to home or Selfcare [...] Units documented in this encounter Care Teams Rehabilitation Inspector Relationship Specialty Start Date End Date Pritesh Chu MD [address] [place] [address] PCP - General Family Medicine 04/18/24 Markus Finley MD [address] [place] [address] Consulting Physician Medical Oncology 04/18/24 documented as of this encounter
--- OUTSIDE RECORDS SUMMARY | 2024-10-26 10:56 | XMS_ITS | Encounter Summary ---
Author Organization [facility] Care Team Providers Care Owner Oral Surgeon Name Role Phone Pritesh Chu MD Primary Care Provider Markus Finley MD Unavailable [phone] Encounter Details Date Type Department Care Team [...] Contact Info) Description 11/15/2024 1:00 PM NURSING TECH Lab [facility] Laboratory Services [address] [place] [id number] Markus Finley MD [address] [place] [address] 11/15/2024 2:00 PM NURSING TECH Appointment [facility] MRI [address] [place] [address] Markus Finley MD [address] [place] [address] Discharge Disposition: Discharged to home or Selfcare documented as of this encounter Visit Diagnoses Not on filedocumented in this encounter Care Teams Owner Oral Surgeon Relationship Specialty Start Date End Date Pritesh Chu MD [address] [place] [address] PCP - General Family Medicine 04/18/24 Markus Finley MD [address] [place] [address] Consulting Physician Medical Oncology 04/18/24 documented as of this encounter
--- OUTSIDE RECORDS SUMMARY | 2024-10-26 10:56 | XMS_ITS | Encounter Summary ---
Author Organization [facility] Address [address] [facility] [place] [address] Phone Care Team Providers Care Supervisor Drying Name Role Phone Pritesh Chu MD Primary Care Provider [phone] Markus Finley MD Unavailable [phone] Reason for Referral * Consult, Test & Initiate Treatment (Routine) - Closed Specialty Diagnoses / Procedures Referred By Contross t Referred To Contact Diagnoses Metastatic melanoma (HCC) Markus Finley MD [address] [place] [address] Phone: tel: fax: [facility] [address] [place] [phone] Phone: tel: fax: Referral ID Status Reason Start Date Expiration Date Visits Re quested Visits Authorized [id number] Closed 05/01/2024 1 1 Scheduling Instructions Dayanara is being referred for new chemotherapy. Please contact patient for scheduling questions or concerns. Reason for Visit * Episode Based Medications (Routine) - Closed Specialty Diagnoses / Procedures Referred By Contac t Referred To Contact Diagnoses Metastatic melanoma (HCC) Markus Finley MD [address] [place] [address] Phone: tel: fax: [facility] [address] [place] [phone] Phone: tel: fax: Referral ID Status Reason Start Date Expiration Date Visits Re quested Visits Authorized [id number] Closed 04/19/2024 1 30 Encounter Details Date Type Department Care Team (Late st Contact Info) Description 05/01/2024 1:00 PM CDT Clinical Support [facility] [address] [place] [phone] [place] [address] [place] [phone] Metastatic melanoma (HCC) (Primary Dx) Discharge [...] answered to patient's satisfaction. Reviewed dose with [facility] per pharmacy request, using flip dose for Melanoma. Chemotherapy given per MD order and pt tolerated well. Port flushed with NS and heparin per protocol and port needle removed. Port site covered with bandaid. Pt left in stable condition. documented in this encounter Plan of Treatment Upcoming Encounters Date Type Department Care Team (Late st Contact Info) Description 11/15/2024 1:00 PM EARLY CHILDHOOD SERVICES COORDINATOR [facility] [address] [place] [address] Markus Finley MD [address] [place] [address] 11/15/2024 2:00 PM EARLY CHILDHOOD SERVICES COORDINATOR [facility] [address] [place] [address] Markus Finley MD [address] [place] [address] Discharge Disposition: Discharged to home or Selfcare [...] THYROID STIMULATING HORMONE (TSH) (10/02/2024 3:08 PM EARLY CHILDHOOD SERVICES COORDINATOR) TSH 1.466 0.300 - 5.000 mIU/L 10/02/2024 3:59 PM EARLY CHILDHOOD SERVICES COORDINATOR [facility] Blood Sub-Q Port Venou s Access Device (Medi-Port, Implanted Port) / Unknown 10/02/2024 3:08 PM EARLY CHILDHOOD SERVICES COORDINATOR 10/02/2024 3:08 PM EARLY CHILDHOOD SERVICES COORDINATOR Markus Finley MD CHEMISTRY ORDERABLES Fin al Result [facility] [place] [address] * (ABNORMAL) CMP (COMPREHENSIVE METABOLIC PANEL) (10/02/2024 3:08 PM EARLY CHILDHOOD SERVICES COORDINATOR) SODIUM 136 136 - 145 mmol/L 10/02/2024 3:40 PM EARLY CHILDHOOD SERVICES COORDINATOR [facility] POTASSIUM 4.5 3.5 - 5.1 mmol/L 10/02/2024 3:40 PM [facility] CHLORIDE 109(H) 98 - 107 mmol/L 10/02/2024 3:40 PM [facility] CO2, VENOUS 21(L) 22 - 30 mmol/L 10/02/2024 3:40 PM [facility] ANION GAP 10.5 <18.0 mmol/L 10/02/2024 3:40 PM [facility] GLUCOSE 118(H) 70 - 99 mg/dL 10/02/2024 3:40 PM [facility] BUN 21(H) 5 - 18 mg/dL 10/02/2024 3:40 PM [facility] CREATININE, BLOOD 0.94 0.60 - 1.00 mg/dL 10/02/2024 3:40 PM [facility] BUN/CREATININE RATIO 22(H) 12 - 20 ratio 10/02/2024 3:40 PM [facility] TOTAL PROTEIN 6.2(L) 6.3 - 8.2 g/dL 10/02/2024 3:40 PM [facility] ALBUMIN 3.9 3.5 - 5.0 g/dL 10/02/2024 3:40 PM [facility] A/G RATIO 1.7 1.0 - 2.2 10/02/2024 3:40 PM [facility] CALCIUM 9.0 8.7 - 10.5 mg/dL 10/02/2024 3:40 PM [facility] T BILI 0.2 0.2 - 1.2 mg/dL 10/02/2024 3:40 PM [facility] SGOT (AST) 17 5 - 34 U/L 10/02/2024 3:40 PM [facility] SGPT (ALT) 52 0 - 55 U/L 10/02/2024 3:40 PM [facility] ALKALINE PHOSPHATASE 45 40 - 150 U/L 10/02/2024 3:40 PM [facility] IS THE PATIENT REQUIRED TO BE FASTING? No 10/02/2024 3:40 PM EARLY CHILDHOOD SERVICES COORDINATOR [facility] GFR, ESTIMATED >60 >=60 10/02/2024 3:40 PM EARLY CHILDHOOD SERVICES COORDINATOR [facility] Comment: Creatinine Clearance is the preferred criteria for selecting drug dose adjustments in renally impaired patients. ??The GFR is provided as additional pertinent clinical information. GFR is reported in mL/min/1.73 sq m. Calculation based on the Chronic Kidney Disease Epidemiology Collaboration (CKD- EPI) equation refit without adjustment for race. GFR, EST. >60 >=60 024 3:40 PM EARLY CHILDHOOD SERVICES COORDINATOR [facility] GFR, EST. NONAFRICAN >60 >=60 10/02/2024 3:40 PM EARLY CHILDHOOD SERVICES COORDINATOR [facility] Blood Sub-Q Port Venou s Access Device (Medi-Port, Implanted Port) / Unknown 10/02/2024 3:08 PM EARLY CHILDHOOD SERVICES COORDINATOR 10/02/2024 3:08 PM EARLY CHILDHOOD SERVICES COORDINATOR Markus Finley MD CHEMISTRY ORDERABLES Fin al Result Performing Organization Address City/[facility]/ZIP Co de Phone Number [facility] [address] [place] [address] * THYROID STIMULATING HORMONE (TSH) (09/25/2024 2:03 PM EARLY CHILDHOOD SERVICES COORDINATOR) TSH 2.382 0.300 - 5.000 mIU/L 09/25/2024 2:49 PM EARLY CHILDHOOD SERVICES COORDINATOR [facility] Blood Sub-Q Port Venou s Access Device (Medi-Port, Implanted Port) / Unknown 09/25/2024 2:03 PM EARLY CHILDHOOD SERVICES COORDINATOR 09/25/2024 2:03 PM EARLY CHILDHOOD SERVICES COORDINATOR Markus Finley MD CHEMISTRY ORDERABLES Fin al Result Performing Organization Address City/[facility]/ZIP Co de Phone Number [facility] [address] [place] [address] * (ABNORMAL) CMP (COMPREHENSIVE METABOLIC PANEL) (09/25/2024 2:03 PM [facility]) SODIUM 141 136 - 145 mmol/L 09/25/2024 2:32 PM [facility] POTASSIUM 4.2 3.5 - 5.1 mmol/L 09/25/2024 2:32 PM [facility] CHLORIDE 109(H) 98 - 107 mmol/L 09/25/2024 2:32 PM [facility] CO2, VENOUS 25 22 - 30 mmol/L 09/25/2024 2:32 PM [facility] ANION GAP 11.2 <18.0 mmol/L 09/25/2024 2:32 PM [facility] GLUCOSE 95 70 - 99 mg/dL 09/25/2024 2:32 PM [facility] BUN 22(H) 5 - 18 mg/dL 09/25/2024 2:32 PM [facility] CREATININE, BLOOD 0.86 [...] 0 - 55 U/L 09/25/2024 2:32 PM EARLY CHILDHOOD SERVICES COORDINATOR [facility] ALKALINE PHOSPHATASE 39(L) 40 - 150 U/L 09/25/2024 2:32 PM EARLY CHILDHOOD SERVICES COORDINATOR [facility] IS THE PATIENT REQUIRED TO BE FASTING? No 09/25/2024 2:32 PM EARLY CHILDHOOD SERVICES COORDINATOR [facility] GFR, ESTIMATED >60 >=60 09/25/2024 2:32 PM EARLY CHILDHOOD SERVICES COORDINATOR [facility] Comment: Creatinine Clearance is the preferred criteria for selecting drug dose adjustments in renally impaired patients. ??The GFR is provided as additional pertinent clinical information. GFR is reported in mL/min/1.73 sq m. Calculation based on the Chronic Kidney Disease Epidemiology Collaboration (CKD- EPI) equation refit without adjustment for race. GFR, EST. >60 >=60 024 2:32 PM EARLY CHILDHOOD SERVICES COORDINATOR [facility] GFR, EST. NONAFRICAN >60 >=60 09/25/2024 2:32 PM EARLY CHILDHOOD SERVICES COORDINATOR [facility] Blood Sub-Q Port Venou s Access Device (Medi-Port, Implanted Port) / Unknown 09/25/2024 2:03 PM EARLY CHILDHOOD SERVICES COORDINATOR 09/25/2024 2:03 PM EARLY CHILDHOOD SERVICES COORDINATOR Markus Finley MD CHEMISTRY ORDERABLES Fin al Result [facility] [address] [place] [address] * THYROID STIMULATING HORMONE (TSH) (09/18/2024 2:21 PM EARLY CHILDHOOD SERVICES COORDINATOR) TSH 1.270 0.300 - 5.000 mIU/L 09/18/2024 3:31 PM EARLY CHILDHOOD SERVICES COORDINATOR [facility] Blood Sub-Q Port Venou s Access Device (Medi-Port, Implanted Port) / Unknown 09/18/2024 2:21 PM EARLY CHILDHOOD SERVICES COORDINATOR 09/18/2024 2:21 PM EARLY CHILDHOOD SERVICES COORDINATOR Markus Finley MD CHEMISTRY ORDERABLES Jacob al Result [facility] [address] [place] [address] * (ABNORMAL) CMP (COMPREHENSIVE METABOLIC PANEL) (09/18/2024 2:21 PM EARLY CHILDHOOD SERVICES COORDINATOR) SODIUM 140 136 - 145 mmol/L 09/18/2024 2:50 PM EARLY CHILDHOOD SERVICES COORDINATOR [facility] POTASSIUM 4.2 3.5 - 5.1 mmol/L 09/18/2024 2:50 PM EARLY CHILDHOOD SERVICES COORDINATOR [facility] CHLORIDE 107 98 - 107 mmol/L 09/18/2024 2:50 PM [facility] CO2, VENOUS 25 22 - 30 mmol/L 09/18/2024 2:50 PM EARLY CHILDHOOD SERVICES COORDINATOR [facility] ANION GAP 12.2 <18.0 mmol/L 09/18/2024 2:50 PM EARLY CHILDHOOD SERVICES COORDINATOR [facility] GLUCOSE 114(H) 70 - 99 mg/dL 09/18/2024 2:50 PM EARLY CHILDHOOD SERVICES COORDINATOR [facility] BUN 24(H) 5 - 18 mg/dL 09/18/2024 2:50 PM [facility] CREATININE, BLOOD 0.78 0.60 - 1.00 mg/dL 09/18/2024 2:50 PM [facility] BUN/CREATININE RATIO 31(H) 12 - 20 ratio 09/18/2024 2:50 PM [facility] TOTAL PROTEIN 5.9(L) 6.3 - 8.2 g/dL 09/18/2024 2:50 PM EARLY CHILDHOOD SERVICES COORDINATOR [facility] ALBUMIN 3.8 3.5 - 5.0 g/dL 09/18/2024 2:50 PM [facility] A/G RATIO 1.8 1.0 - 2.2 09/18/2024 2:50 PM EARLY CHILDHOOD SERVICES COORDINATOR [facility] CALCIUM 9.0 8.7 - 10.5 mg/dL 09/18/2024 2:50 PM [facility] T BILI 0.4 0.2 - 1.2 mg/dL 09/18/2024 2:50 PM EARLY CHILDHOOD SERVICES COORDINATOR [facility] SGOT (AST) 11 5 - 34 U/L 09/18/2024 2:50 PM EARLY CHILDHOOD SERVICES COORDINATOR [facility] SGPT (ALT) 45 0 - 55 U/L 09/18/2024 2:50 PM EARLY CHILDHOOD SERVICES COORDINATOR [facility] ALKALINE PHOSPHATASE 45 40 - 150 U/L 09/18/2024 2:50 PM EARLY CHILDHOOD SERVICES COORDINATOR [facility] IS THE PATIENT REQUIRED TO BE FASTING? No 09/18/2024 2:50 PM EARLY CHILDHOOD SERVICES COORDINATOR [facility] GFR, ESTIMATED >60 >=60 09/18/2024 2:50 PM EARLY CHILDHOOD SERVICES COORDINATOR [facility] Comment: Creatinine Clearance is the preferred criteria for selecting drug dose adjustments in renally impaired patients. ??The GFR is provided as additional pertinent clinical information. GFR is reported in mL/min/1.73 sq m. Calculation based on the Chronic Kidney Disease Epidemiology Collaboration (CKD- EPI) equation refit without adjustment for race. GFR, EST. >60 >=60 024 2:50 PM EARLY CHILDHOOD SERVICES COORDINATOR [facility] GFR, EST. NONAFRICAN >60 >=60 09/18/2024 2:50 PM EARLY CHILDHOOD SERVICES COORDINATOR [facility] Blood Sub-Q Port Venou s Access Device (Medi-Port, Implanted Port) / Unknown 09/18/2024 2:21 PM EARLY CHILDHOOD SERVICES COORDINATOR 09/18/2024 2:21 PM EARLY CHILDHOOD SERVICES COORDINATOR Markus Finley MD CHEMISTRY ORDERABLES Fin al Result [facility] [address] [place] [address] * (ABNORMAL) CMP (COMPREHENSIVE METABOLIC PANEL) (09/11/2024 1:32 PM EARLY CHILDHOOD SERVICES COORDINATOR) SODIUM 139 136 - 145 mmol/L 09/11/2024 2:07 PM EARLY CHILDHOOD SERVICES COORDINATOR [facility] POTASSIUM 3.8 3.5 - 5.1 mmol/L 09/11/2024 2:07 PM [facility] CHLORIDE 107 98 - 107 mmol/L 09/11/2024 2:07 PM [facility] CO2, VENOUS 22 22 - 30 mmol/L 09/11/2024 2:07 PM [facility] ANION GAP 13.8 <18.0 mmol/L 09/11/2024 2:07 PM [facility] GLUCOSE 145(H) 70 - 99 mg/dL 09/11/2024 2:07 PM [facility] BUN 25(H) 5 - 18 mg/dL 09/11/2024 2:07 PM [facility] CREATININE, BLOOD 0.87 0.60 - 1.00 mg/dL 09/11/2024 2:07 PM [facility] BUN/CREATININE RATIO 29(H) 12 - 20 ratio 09/11/2024 2:07 PM [facility] TOTAL PROTEIN 6.2(L) 6.3 - 8.2 g/dL 09/11/2024 2:07 PM [facility] ALBUMIN 4.0 3.5 - 5.0 g/dL 09/11/2024 2:07 PM [facility] A/G RATIO 1.8 1.0 - 2.2 09/11/2024 2:07 PM [facility] CALCIUM 8.9 8.7 - 10.5 mg/dL 09/11/2024 2:07 PM [facility] T BILI 0.5 0.2 - 1.2 mg/dL 09/11/2024 2:07 PM [facility] SGOT (AST) 13 5 - 34 U/L 09/11/2024 2:07 PM [facility] SGPT (ALT) 56(H) 0 - 55 U/L 09/11/2024 2:07 PM [facility] ALKALINE PHOSPHATASE 58 40 - 150 U/L 09/11/2024 2:07 PM [facility] IS THE PATIENT REQUIRED TO BE FASTING? No 09/11/2024 2:07 PM EARLY CHILDHOOD SERVICES COORDINATOR [facility] GFR, ESTIMATED >60 >=60 09/11/2024 2:07 PM EARLY CHILDHOOD SERVICES COORDINATOR [facility] Comment: Creatinine Clearance is the preferred criteria for selecting drug dose adjustments in renally impaired patients. ??The GFR is provided as additional pertinent clinical information. GFR is reported in mL/min/1.73 sq m. Calculation based on the Chronic Kidney Disease Epidemiology Collaboration (CKD- EPI) equation refit without adjustment for race. GFR, EST. >60 >=60 024 2:07 PM EARLY CHILDHOOD SERVICES COORDINATOR [facility] GFR, EST. NONAFRICAN >60 >=60 09/11/2024 2:07 PM EARLY CHILDHOOD SERVICES COORDINATOR [facility] Blood Sub-Q Port Venou s Access Device (Medi-Port, Implanted Port) / Unknown 09/11/2024 1:32 PM EARLY CHILDHOOD SERVICES COORDINATOR 09/11/2024 1:33 PM EARLY CHILDHOOD SERVICES COORDINATOR Markus Finley MD CHEMISTRY ORDERABLES Fin al Result Performing Organization Address City/[facility]/ZIP Co de Phone Number [facility] [place] [address] * THYROID STIMULATING HORMONE (TSH) (09/07/2024 11:55 AM CDT) TSH 1.777 0.300 - 5.000 mIU/L 09/07/2024 12:42 PM CDT [facility] Blood Sub-Q Port Venou s Access Device (Medi-Port, Implanted Port) / Unknown 09/07/2024 11:55 AM CDT 09/07/2024 11:55 AM CDT Markus Finley MD CHEMISTRY ORDERABLES Fin al Result [facility] [address] [place] [address] * (ABNORMAL) CMP (COMPREHENSIVE METABOLIC PANEL) (09/07/2024 11:55 AM CDT) SODIUM 139 136 - 145 mmol/L 09/07/2024 12:24 PM CDT [facility] POTASSIUM 4.7 3.5 - 5.1 mmol/L 09/07/2024 12:24 PM CDT [facility] CHLORIDE 105 98 - 107 mmol/L 09/07/2024 12:24 PM CDT [facility] CO2, VENOUS 26 22 - 30 mmol/L 09/07/2024 12:24 PM CDT [facility] ANION GAP 12.7 <18.0 mmol/L 09/07/2024 12:24 PM CDT [facility] GLUCOSE 102(H) 70 - 99 mg/dL 09/07/2024 12:24 PM CDT [facility] BUN 20(H) 5 - 18 mg/dL 09/07/2024 12:24 PM CDT [facility] CREATININE, BLOOD 0.82 0.60 - 1.00 mg/dL 09/07/2024 12:24 PM CDT [facility] BUN/CREATININE RATIO 24(H) 12 - 20 ratio 09/07/2024 12:24 PM CDT [facility] TOTAL PROTEIN 6.1(L) 6.3 - 8.2 g/dL 09/07/2024 12:24 PM CDT [facility] ALBUMIN 3.9 3.5 - 5.0 g/dL 09/07/2024 12:24 PM CDT [facility] A/G RATIO 1.8 1.0 - 2.2 09/07/2024 12:24 PM CDT [facility] CALCIUM 9.2 8.7 - 10.5 mg/dL 09/07/2024 12:24 PM CDT [facility] T BILI 0.6 0.2 - 1.2 mg/dL 09/07/2024 12:24 PM CDT [facility] SGOT (AST) 12 5 - 34 U/L 09/07/2024 12:24 PM CDT [facility] SGPT (ALT) 53 0 - 55 U/L 09/07/2024 12:24 PM CDT [facility] ALKALINE PHOSPHATASE 52 40 - 150 U/L 09/07/2024 12:24 PM CDT [facility] IS THE PATIENT REQUIRED TO BE [...] EST. >60 >=60 024 12:24 PM CDT [facility] GFR, EST. NONAFRICAN >60 >=60 09/07/2024 12:24 PM CDT [facility] Blood Sub-Q Port Venou s Access Device (Medi-Port, Implanted Port) / Unknown 09/07/2024 11:55 AM CDT 09/07/2024 11:55 AM CDT Markus Finley MD CHEMISTRY ORDERABLES Fin al Result [facility] [address] [place] [address] * (ABNORMAL) CMP (COMPREHENSIVE METABOLIC PANEL) (08/24/2024 12:05 PM CDT) SODIUM 138 136 - 145 mmol/L 08/24/2024 12:43 PM CDT [facility] POTASSIUM 3.5 3.5 - 5.1 mmol/L [...] - 18 mg/dL 08/24/2024 12:43 PM CDT [facility] CREATININE, BLOOD 0.95 0.60 - 1.00 mg/dL 08/24/2024 12:43 PM CDT [facility] BUN/CREATININE RATIO 18 12 - 20 ratio 08/24/2024 12:43 PM CDT [facility] TOTAL PROTEIN 5.6(L) 6.3 - 8.2 g/dL 08/24/2024 12:43 PM CDT [facility] ALBUMIN 3.5 3.5 - 5.0 g/dL 08/24/2024 12:43 PM CDT [facility] A/G RATIO 1.7 1.0 - 2.2 08/24/2024 12:43 PM CDT [facility] CALCIUM 8.7 8.7 - 10.5 mg/dL 08/24/2024 12:43 PM CDT [facility] T BILI 0.5 0.2 - 1.2 mg/dL 08/24/2024 12:43 PM CDT [facility] SGOT (AST) 27 5 - 34 U/L 08/24/2024 12:43 PM CDT [facility] SGPT (ALT) 107(H) 0 - 55 U/L 08/24/2024 12:43 PM CDT [facility] ALKALINE PHOSPHATASE 56 40 - 150 U/L 08/24/2024 12:43 PM CDT [facility] IS THE PATIENT REQUIRED TO BE FASTING? No 08/24/2024 12:43 PM CDT [facility] GFR, ESTIMATED >60 >=60 08/24/2024 12:43 PM CDT [facility] Comment: Creatinine Clearance is the preferred [...] NONAFRICAN >60 >=60 08/24/2024 12:43 PM CDT [facility] Blood Venipuncture / Unknown 08/24/2024 12:05 PM CDT 08/24/2024 12:05 PM CDT Markus Finley MD CHEMISTRY ORDERABLES Fin al Result [facility] [address] [place] [address] * (ABNORMAL) CMP (COMPREHENSIVE METABOLIC PANEL) (08/20/2024 2:00 PM CDT) SODIUM 133(L) 136 - 145 mmol/L 08/20/2024 2:59 PM CDT [facility] POTASSIUM 4.3 3.5 - 5.1 mmol/L 08/20/2024 2:59 PM CDT [facility] CHLORIDE 106 98 - 107 mmol/L 08/20/2024 2:59 PM CDT [facility] CO2, VENOUS 18(L) 22 - 30 mmol/L 08/20/2024 2:59 PM CDT [facility] ANION GAP 13.3 <18.0 mmol/L 08/20/2024 2:59 PM CDT [facility] GLUCOSE 121(H) 70 - 99 mg/dL 08/20/2024 2:59 PM CDT [facility] BUN 18 5 - 18 mg/dL 08/20/2024 2:59 PM CDT [facility] CREATININE, BLOOD 0.87 0.60 - 1.00 mg/dL 08/20/2024 2:59 PM CDT [facility] BUN/CREATININE RATIO 21(H) 12 - 20 ratio 08/20/2024 2:59 PM CDT [facility] TOTAL PROTEIN 6.0(L) 6.3 - 8.2 g/dL 08/20/2024 2:59 PM CDT [facility] ALBUMIN 3.7 3.5 - 5.0 g/dL 08/20/2024 2:59 PM CDT [facility] A/G RATIO 1.6 1.0 - 2.2 08/20/2024 2:59 PM CDT [facility] CALCIUM 8.9 8.7 - 10.5 mg/dL 08/20/2024 2:59 PM CDT [facility] T BILI 0.4 0.2 - 1.2 mg/dL 08/20/2024 2:59 PM CDT [facility] SGOT (AST) 13 5 - 34 U/L 08/20/2024 2:59 PM CDT [facility] SGPT (ALT) 43 0 - 55 U/L 08/20/2024 2:59 PM CDT [facility] ALKALINE PHOSPHATASE 64 40 - 150 U/L 08/20/2024 2:59 PM CDT [facility] IS THE PATIENT REQUIRED TO BE FASTING? No 08/20/2024 2:59 PM CDT [facility] GFR, ESTIMATED >60 >=60 08/20/2024 2:59 PM CDT [facility] Comment: Creatinine Clearance is the preferred criteria for selecting drug dose adjustments in renally impaired patients. ??The GFR is provided as additional pertinent clinical information. GFR is reported in mL/min/1.73 sq m. Calculation based on the Chronic Kidney Disease Epidemiology Collaboration (CKD- EPI) equation refit without adjustment for race. GFR, EST. >60 >=60 024 2:59 PM CDT [facility] GFR, EST. NONAFRICAN >60 >=60 08/20/2024 2:59 PM CDT [facility] Blood Venipuncture / Unknown 08/20/2024 2:00 PM CDT 08/20/2024 2:02 PM CDT us Markus Finley MD CHEMISTRY ORDERABLES [facility] al Result [facility] [place] [address] * (ABNORMAL) CMP (COMPREHENSIVE METABOLIC PANEL) (08/15/2024 11:35 AM CDT) SODIUM 132(L) 136 - 145 mmol/L 08/15/2024 12:21 PM CDT [facility] POTASSIUM 4.0 3.5 - 5.1 mmol/L 08/15/2024 12:21 PM CDT [facility] CHLORIDE 100 98 - 107 mmol/L 08/15/2024 12:21 PM CDT [facility] CO2, VENOUS 25 22 - 30 mmol/L 08/15/2024 12:21 PM CDT [facility] ANION GAP 11.0 <18.0 mmol/L 08/15/2024 12:21 PM CDT [facility] GLUCOSE 87 70 - 99 mg/dL 08/15/2024 12:21 PM CDT [facility] BUN 24(H) 5 - 18 mg/dL 08/15/2024 12:21 PM CDT [facility] CREATININE, BLOOD 0.91 0.60 - 1.00 mg/dL 08/15/2024 12:21 PM CDT [facility] BUN/CREATININE RATIO 26(H) 12 - 20 ratio 08/15/2024 12:21 PM CDT [facility] TOTAL PROTEIN 6.2(L) 6.3 - 8.2 g/dL 08/15/2024 12:21 PM CDT [facility] ALBUMIN 3.7 3.5 - 5.0 g/dL 08/15/2024 12:21 PM CDT [facility] A/G RATIO 1.5 1.0 - 2.2 08/15/2024 12:21 PM CDT [facility] CALCIUM 8.8 8.7 - 10.5 mg/dL 08/15/2024 12:21 PM CDT [facility] T BILI 0.9 0.2 - 1.2 mg/dL 08/15/2024 12:21 PM CDT [facility] SGOT (AST) 21 5 - 34 U/L 08/15/2024 12:21 PM T [facility] SGPT (ALT) 69(H) 0 - 55 U/L 08/15/2024 12:21 PM T [facility] ALKALINE PHOSPHATASE 65 40 - 150 U/L 08/15/2024 12:21 PM T [facility] IS THE PATIENT REQUIRED TO BE FASTING? No 08/15/2024 12:21 PM CDT [facility] GFR, ESTIMATED >60 >=60 08/15/2024 12:21 PM T [facility] Comment: Creatinine Clearance is the preferred criteria for selecting drug dose adjustments in renally impaired patients. ??The GFR is provided as additional pertinent clinical information. GFR is reported in mL/min/1.73 sq m. Calculation based on the Chronic Kidney Disease Epidemiology Collaboration (CKD- EPI) equation refit without adjustment for race. GFR, EST. >60 >=60 024 12:21 PM CDT [facility] GFR, EST. NONAFRICAN >60 >=60 08/15/2024 12:21 PM T [facility] Blood Sub-Q Port Venou s Access Device (Medi-Port, Implanted Port) / Unknown 08/15/2024 11:35 AM CDT 08/15/2024 11:35 AM CDT us Markus Finley MD CHEMISTRY ORDERABLES Fin al Result [facility] [address] [place] [address] * (ABNORMAL) CMP (COMPREHENSIVE METABOLIC PANEL) (08/13/2024 11:39 AM CDT) SODIUM 132(L) 136 - 145 mmol/L 08/13/2024 12:47 PM CDT [facility] POTASSIUM 3.8 3.5 - 5.1 mmol/L 08/13/2024 12:47 PM CDT [facility] CHLORIDE 99 98 - 107 mmol/L 08/13/2024 12:47 PM CDT [facility] CO2, VENOUS 26 22 - 30 mmol/L 08/13/2024 12:47 PM CDT [facility] ANION GAP 10.8 <18.0 mmol/L 08/13/2024 12:47 PM CDT [facility] GLUCOSE 127(H) 70 - 99 mg/dL 08/13/2024 12:47 PM CDT [facility] BUN 16 5 - 18 mg/dL 08/13/2024 12:47 PM CDT [facility] CREATININE, BLOOD 0.88 0.60 - 1.00 mg/dL 08/13/2024 12:47 PM CDT [facility] BUN/CREATININE RATIO 18 12 - 20 ratio 08/13/2024 12:47 PM CDT [facility] TOTAL PROTEIN 6.2(L) 6.3 - 8.2 g/dL 08/13/2024 12:47 PM CDT [facility] ALBUMIN 3.7 3.5 - 5.0 g/dL 08/13/2024 12:47 PM CDT [facility] A/G RATIO 1.5 1.0 - 2.2 08/13/2024 12:47 PM CDT [facility] CALCIUM 8.9 8.7 - 10.5 mg/dL 08/13/2024 12:47 PM CDT [facility] T BILI 0.7 0.2 - 1.2 mg/dL 08/13/2024 12:47 PM CDT [facility] SGOT (AST) 17 5 - 34 U/L 08/13/2024 12:47 PM CDT [facility] SGPT (ALT) 62(H) 0 - 55 U/L 08/13/2024 12:47 PM CDT [facility] ALKALINE PHOSPHATASE 75 40 - 150 U/L 08/13/2024 12:47 PM CDT [facility] IS THE PATIENT REQUIRED TO BE FASTING? No 08/13/2024 12:47 PM CDT [facility] GFR, ESTIMATED >60 >=60 08/13/2024 12:47 PM CDT [facility] Comment: Creatinine Clearance is the preferred criteria for selecting drug dose adjustments in renally impaired patients. ??The GFR is provided as additional pertinent clinical information. GFR is reported in mL/min/1.73 sq m. Calculation based on the Chronic Kidney Disease Epidemiology Collaboration (CKD- EPI) equation refit without adjustment for race. GFR, EST. >60 >=60 024 12:47 PM CDT [facility] GFR, EST. NONAFRICAN >60 >=60 08/13/2024 12:47 PM CDT [facility] Blood Sub-Q Port Venou s Access Device (Medi-Port, Implanted Port) / Unknown 08/13/2024 11:39 AM CDT 08/13/2024 11:39 AM CDT us Markus Finley MD CHEMISTRY ORDERABLES Fin al Result [facility] [address] [place] [address] * (ABNORMAL) CMP (COMPREHENSIVE METABOLIC PANEL) (08/08/2024 12:00 PM CDT) SODIUM 133(L) 136 - 145 mmol/L 08/08/2024 12:40 PM CDT [facility] POTASSIUM 3.6 3.5 - 5.1 mmol/L 08/08/2024 12:40 PM CDT [facility] CHLORIDE 108(H) 98 - 107 mmol/L 08/08/2024 12:40 PM CDT [facility] CO2, VENOUS 20(L) 22 - 30 mmol/L 08/08/2024 12:40 PM CDT [facility] ANION GAP 8.6 <18.0 mmol/L 08/08/2024 12:40 PM T [facility] GLUCOSE 143(H) 70 - 99 mg/dL 08/08/2024 12:40 PM T [facility] BUN 12 5 - 18 mg/dL 08/08/2024 12:40 PM [facility] CREATININE, BLOOD 1.00 0.60 - 1.00 mg/dL 08/08/2024 12:40 PM T [facility] BUN/CREATININE RATIO 12 12 - 20 ratio 08/08/2024 12:40 PM [facility] TOTAL PROTEIN 6.0(L) 6.3 - 8.2 g/dL 08/08/2024 12:40 PM [facility] ALBUMIN 3.4(L) 3.5 - 5.0 g/dL 08/08/2024 12:40 PM T [facility] A/G RATIO 1.3 1.0 - 2.2 08/08/2024 12:40 PM T [facility] CALCIUM 8.8 8.7 - 10.5 mg/dL 08/08/2024 12:40 PM T [facility] T BILI 0.5 0.2 - 1.2 mg/dL 08/08/2024 12:40 PM T [facility] SGOT (AST) 15 5 - 34 U/L 08/08/2024 12:40 PM T [facility] SGPT (ALT) 58(H) 0 - 55 U/L 08/08/2024 12:40 PM CDT [facility] ALKALINE PHOSPHATASE 71 40 - 150 U/L 08/08/2024 12:40 PM CDT [facility] IS THE PATIENT REQUIRED TO BE FASTING? No 08/08/2024 12:40 PM CDT [facility] GFR, ESTIMATED >60 >=60 08/08/2024 12:40 PM CDT [facility] Comment: Creatinine Clearance is the preferred criteria for selecting drug dose adjustments in renally impaired patients. ??The GFR is provided as additional pertinent clinical information. GFR is reported in mL/min/1.73 sq m. Calculation based on the Chronic Kidney Disease Epidemiology Collaboration (CKD- EPI) equation refit without adjustment for race. GFR, EST. >60 >=60 12:40 PM CDT [facility] GFR, EST. NONAFRICAN >60 >=60 08/08/2024 12:40 PM CDT [facility] Blood Sub-Q Port Venou s Access Device (Medi-Port, Implanted Port) / Unknown 08/08/2024 12:00 PM CDT 08/08/2024 12:00 PM CDT Markus Finley MD CHEMISTRY ORDERABLES Fin al Result [facility] [address] [place] [address] * (ABNORMAL) THYROID STIMULATING HORMONE (TSH) (08/01/2024 11:05 AM CDT) TSH 114.336(H) 0.300 - 5.000 mIU/L 08/01/2024 12:49 PM CDT [facility] Blood Venipuncture / Unknown 08/01/2024 11:05 AM CDT 08/01/2024 11:05 AM CDT Markus Finley MD CHEMISTRY ORDERABLES Fin al Result [facility] [address] [place] [address] * (ABNORMAL) CMP (COMPREHENSIVE METABOLIC PANEL) (08/01/2024 11:05 AM CDT) SODIUM 127(L) 136 - 145 mmol/L 08/01/2024 12:10 PM CDT [facility] POTASSIUM 3.3(L) 3.5 - 5.1 mmol/L 08/01/2024 12:10 PM CDT [facility] CHLORIDE 91(L) 98 - 107 mmol/L 08/01/2024 12:10 PM CDT [facility] CO2, VENOUS 15(L) 22 - 30 mmol/L 08/01/2024 12:10 PM CDT [facility] ANION GAP 24.3(H) <18.0 mmol/L 08/01/2024 12:10 PM CDT [facility] GLUCOSE 157(H) 70 - 99 mg/dL 08/01/2024 12:10 PM CDT [facility] BUN 29(H) 5 - 18 mg/dL 08/01/2024 12:10 PM CDT [facility] CREATININE, BLOOD 4.24(H) 0.60 - 1.00 mg/dL 08/01/2024 12:10 PM CDT [facility] BUN/CREATININE RATIO 7(L) 12 - 20 ratio 08/01/2024 12:10 PM CDT [facility] TOTAL PROTEIN 9.0(H) 6.3 - 8.2 g/dL 08/01/2024 12:10 PM CDT [facility] ALBUMIN 4.7 3.5 - 5.0 g/dL 08/01/2024 12:10 PM CDT [facility] A/G RATIO 1.1 1.0 - 2.2 08/01/2024 12:10 PM CDT [facility] CALCIUM 10.6(H) 8.7 - 10.5 mg/dL 08/01/2024 12:10 PM CDT [facility] T BILI 0.7 0.2 - 1.2 mg/dL 08/01/2024 12:10 PM CDT [facility] SGOT (AST) 22 5 - 34 U/L 08/01/2024 12:10 PM CDT [facility] SGPT (ALT) 53 0 - 55 U/L 08/01/2024 12:10 PM CDT [facility] ALKALINE PHOSPHATASE 85 40 - 150 U/L 08/01/2024 12:10 PM CDT [facility] IS THE PATIENT REQUIRED TO BE FASTING? No 08/01/2024 12:10 PM CDT [facility] GFR, ESTIMATED 14(L) >=60 08/01/2024 12:10 PM CDT [facility] Comment: Creatinine Clearance is the preferred criteria for selecting drug dose adjustments in renally impaired patients. ??The GFR is provided as additional pertinent clinical information. GFR is reported in mL/min/1.73 sq m. Calculation based on the Chronic Kidney Disease Epidemiology Collaboration (CKD- EPI) equation refit without adjustment for race. GFR, EST. 16(L) >=60 08/01/ 024 12:10 PM CDT [facility] GFR, EST. NONAFRICAN 13(L) >=60 08/01/2024 12:10 PM CDT [facility] Blood Venipuncture / Unknown 08/01/2024 11:05 AM CDT 08/01/2024 11:05 AM CDT us Markus Finley MD CHEMISTRY ORDERABLES Fin al Result [facility] [address] [place] [address] * (ABNORMAL) THYROID STIMULATING HORMONE (TSH) (07/25/2024 11:02 AM CDT) TSH 135.164(H) 0.300 - 5.000 mIU/L 07/25/2024 12:22 PM CDT [facility] Blood Sub-Q Port Venou s Access Device (Medi-Port, Implanted Port) / Unknown 07/25/2024 11:02 AM CDT 07/25/2024 11:02 AM CDT Markus Finley MD CHEMISTRY ORDERABLES Fin al Result [facility] [address] [place] [address] * (ABNORMAL) CMP (COMPREHENSIVE METABOLIC PANEL) (07/25/2024 11:02 AM CDT) Pathologist [facility] SODIUM 134(L) 136 - 145 mmol/L 07/25/2024 11:37 AM CDT [facility] POTASSIUM 2.5(LL) 3.5 - 5.1 mmol/L 07/25/2024 11:37 AM CDT [facility] CHLORIDE 93(L) 98 - 107 mmol/L 07/25/2024 11:37 AM CDT [facility] CO2, VENOUS 22 22 - 30 mmol/L 07/25/2024 11:37 AM CDT [facility] ANION GAP 21.5(H) <18.0 mmol/L 07/25/2024 11:37 AM CDT [facility] GLUCOSE 153(H) 70 - 99 mg/dL 07/25/2024 11:37 AM CDT [facility] BUN 30(H) 5 - 18 mg/dL 07/25/2024 11:37 AM CDT [facility] CREATININE, BLOOD 3.31(H) 0.60 - 1.00 mg/dL 07/25/2024 11:37 AM CDT [facility] BUN/CREATININE RATIO 9(L) 12 - 20 ratio 07/25/2024 11:37 AM CDT [facility] TOTAL PROTEIN 8.4(H) 6.3 - 8.2 g/dL 07/25/2024 11:37 AM [facility] ALBUMIN 4.5 3.5 - 5.0 g/dL [...] Finley MD CHEMISTRY ORDERABLES Fin al Result [facility] [address] [place] [address] * (ABNORMAL) CMP (COMPREHENSIVE METABOLIC PANEL) (07/10/2024 1:28 PM CDT) Pathologist [facility] SODIUM 133(L) 136 - 145 mmol/L 07/10/2024 1:53 PM CDT [facility] POTASSIUM 3.9 3.5 - 5.1 mmol/L 07/10/2024 1:53 PM CDT [facility] CHLORIDE 109(H) 98 - 107 mmol/L 07/10/2024 1:53 PM CDT [facility] CO2, VENOUS 18(L) 22 - 30 mmol/L 07/10/2024 1:53 PM CDT [facility] ANION GAP 9.9 <18.0 mmol/L 07/10/2024 1:53 PM CDT [facility] GLUCOSE 143(H) 70 - 99 mg/dL 07/10/2024 1:53 PM CDT [facility] BUN 4(L) 5 - 18 mg/dL 07/10/2024 1:53 PM CDT [facility] CREATININE, BLOOD 0.85 0.60 - 1.00 mg/dL 07/10/2024 1:53 PM CDT [facility] BUN/CREATININE RATIO 5(L) 12 - 20 ratio 07/10/2024 1:53 PM CDT [facility] TOTAL PROTEIN 5.8(L) 6.3 - 8.2 g/dL 07/10/2024 1:53 PM CDT [facility] ALBUMIN 3.3(L) 3.5 - 5.0 g/dL 07/10/2024 1:53 PM CDT [facility] A/G RATIO 1.3 1.0 - 2.2 07/10/2024 1:53 PM CDT [facility] CALCIUM 8.6(L) 8.7 - 10.5 mg/dL 07/10/2024 1:53 PM CDT [facility] T BILI 0.4 0.2 - 1.2 mg/dL 07/10/2024 1:53 PM CDT [facility] SGOT (AST) 20 5 - 34 U/L 07/10/2024 1:53 PM CDT [facility] SGPT (ALT) 44 0 - 55 U/L 07/10/2024 1:53 PM CDT [facility] ALKALINE PHOSPHATASE 74 40 - 150 U/L 07/10/2024 1:53 PM CDT [facility] IS THE PATIENT REQUIRED TO BE FASTING? No 07/10/2024 1:53 PM CDT [facility] GFR, ESTIMATED >60 >=60 07/10/2024 1:53 PM CDT [facility] Comment: Creatinine Clearance is the preferred criteria for selecting drug dose adjustments in renally impaired patients. ??The GFR is provided as additional pertinent clinical information. GFR is reported in mL/min/1.73 sq m. Calculation based on the Chronic Kidney Disease Epidemiology Collaboration (CKD- EPI) equation refit without adjustment for race. GFR, EST. >60 >=60 024 1:53 PM CDT [facility] GFR, EST. NONAFRICAN >60 >=60 07/10/2024 1:53 PM CDT [facility] Blood Sub-Q Port Venou s Access Device (Medi-Port, Implanted Port) / Unknown 07/10/2024 1:28 PM CDT 07/10/2024 1:28 PM CDT us Markus Finley MD CHEMISTRY ORDERABLES Fin al Result [facility] [address] [place] [address] * (ABNORMAL) CMP (COMPREHENSIVE METABOLIC PANEL) (07/05/2024 9:24 AM CDT) SODIUM 132(L) 136 - 145 mmol/L 07/05/2024 10:05 AM T [facility] POTASSIUM 2.6(LL) 3.5 - 5.1 mmol/L 07/05/2024 10:05 AM CDT [facility] CHLORIDE 107 98 - 107 mmol/L 07/05/2024 10:05 AM T [facility] CO2, VENOUS 16(L) 22 - 30 mmol/L 07/05/2024 10:05 AM [facility] ANION GAP 11.6 <18.0 mmol/L 07/05/2024 10:05 AM T [facility] GLUCOSE 193(H) 70 - 99 mg/dL 07/05/2024 10:05 AM T [facility] BUN 7 5 - 18 mg/dL 07/05/2024 10:05 AM T [facility] CREATININE, BLOOD 1.03(H) 0.60 - 1.00 mg/dL 07/05/2024 10:05 AM [facility] BUN/CREATININE RATIO 7(L) 12 - 20 ratio 07/05/2024 10:05 AM [facility] TOTAL PROTEIN 6.1(L) 6.3 - 8.2 g/dL 07/05/2024 10:05 AM T [facility] ALBUMIN 3.4(L) 3.5 - 5.0 g/dL 07/05/2024 10:05 AM [facility] A/G RATIO 1.3 1.0 - 2.2 07/05/2024 10:05 AM [facility] CALCIUM 8.7 8.7 - 10.5 mg/dL 07/05/2024 10:05 AM [facility] T BILI 0.6 0.2 - 1.2 mg/dL 07/05/2024 10:05 AM [facility] SGOT (AST) 15 5 - 34 U/L 07/05/2024 10:05 AM CDT [facility] SGPT (ALT) 46 0 - 55 U/L 07/05/2024 10:05 AM CDT [facility] ALKALINE PHOSPHATASE 61 40 - 150 U/L 07/05/2024 10:05 AM CDT [facility] IS THE PATIENT REQUIRED TO BE FASTING? No 07/05/2024 10:05 AM CDT [facility] GFR, ESTIMATED >60 >=60 07/05/2024 10:05 AM CDT [facility] Comment: Creatinine Clearance is the preferred criteria for selecting drug dose adjustments in renally impaired patients. ??The GFR is provided as additional pertinent clinical information. GFR is reported in mL/min/1.73 sq m. Calculation based on the Chronic Kidney Disease Epidemiology Collaboration (CKD- EPI) equation refit without adjustment for race. GFR, EST. >60 >=60 024 10:05 AM CDT [facility] GFR, EST. NONAFRICAN >60 >=60 07/05/2024 10:05 AM CDT [facility] Blood Venipuncture / Unknown 07/05/2024 9:24 AM CDT 07/05/2024 9:24 AM CDT us Markus Finley MD CHEMISTRY ORDERABLES Fin al Result [facility] [address] [place] [address] * (ABNORMAL) CMP (COMPREHENSIVE METABOLIC PANEL) (07/04/2024 10:53 AM CDT) SODIUM 128(L) 136 - 145 mmol/L 07/04/2024 11:41 AM CDT [facility] POTASSIUM 2.7(LL) 3.5 - 5.1 mmol/L 07/04/2024 11:41 AM CDT [facility] CHLORIDE 102 98 - 107 mmol/L 07/04/2024 11:41 AM [facility] CO2, VENOUS 17(L) 22 - 30 mmol/L 07/04/2024 11:41 AM [facility] ANION GAP 11.7 <18.0 mmol/L 07/04/2024 11:41 AM [facility] GLUCOSE 150(H) 70 - 99 mg/dL 07/04/2024 11:41 AM [facility] BUN 11 5 - 18 mg/dL 07/04/2024 11:41 AM [facility] CREATININE, BLOOD 1.00 0.60 - 1.00 mg/dL 07/04/2024 11:41 AM [facility] BUN/CREATININE RATIO 11(L) 12 - 20 ratio 07/04/2024 11:41 AM [facility] TOTAL PROTEIN 6.5 6.3 - 8.2 g/dL 07/04/2024 11:41 AM [facility] ALBUMIN 3.6 3.5 - 5.0 g/dL 07/04/2024 11:41 AM [facility] A/G RATIO 1.2 1.0 - 2.2 07/04/2024 11:41 AM [facility] CALCIUM 8.8 8.7 - 10.5 mg/dL 07/04/2024 11:41 AM [facility] T BILI 0.7 0.2 - 1.2 mg/dL 07/04/2024 11:41 AM [facility] SGOT (AST) 19 5 - 34 U/L 07/04/2024 11:41 AM [facility] SGPT (ALT) 50 0 - 55 U/L 07/04/2024 11:41 AM [facility] ALKALINE PHOSPHATASE 67 40 - 150 U/L 07/04/2024 11:41 AM [facility] IS THE PATIENT REQUIRED TO BE FASTING? No 07/04/2024 11:41 AM CDT [facility] GFR, ESTIMATED >60 >=60 07/04/2024 11:41 AM CDT [facility] Comment: Creatinine Clearance is the preferred criteria for selecting drug dose adjustments in renally impaired patients. ??The GFR is provided as additional pertinent clinical information. GFR is reported in mL/min/1.73 sq m. Calculation based on the Chronic Kidney Disease Epidemiology Collaboration (CKD- EPI) equation refit without adjustment for race. GFR, EST. >60 >=60 024 11:41 AM CDT [facility] GFR, EST. NONAFRICAN >60 >=60 07/04/2024 11:41 AM CDT [facility] Blood Sub-Q Port Venou s Access Device (Medi-Port, Implanted Port) / Unknown 07/04/2024 10:53 AM CDT 07/04/2024 10:54 AM CDT Markus Finley MD CHEMISTRY ORDERABLES Fin al Result [facility] [address] [place] [address] * (ABNORMAL) CMP (COMPREHENSIVE METABOLIC PANEL) (06/12/2024 2:14 PM CDT) SODIUM 140 136 - 145 mmol/L 06/12/2024 4:04 PM CDT [facility] POTASSIUM 3.5 3.5 - 5.1 mmol/L 06/12/2024 4:04 PM CDT [facility] CHLORIDE 109(H) 98 - 107 mmol/L 06/12/2024 4:04 PM CDT [facility] CO2, VENOUS 23 22 - 30 mmol/L 06/12/2024 4:04 PM CDT [facility] ANION GAP 11.5 <18.0 mmol/L 06/12/2024 4:04 PM CDT [facility] GLUCOSE 136(H) 70 - 99 mg/dL 06/12/2024 4:04 PM T [facility] BUN 12 5 - 18 mg/dL 06/12/2024 4:04 PM [facility] CREATININE, BLOOD 0.73 0.60 - 1.00 mg/dL 06/12/2024 4:04 PM [facility] BUN/CREATININE RATIO 16 12 - 20 ratio 06/12/2024 4:04 PM [facility] TOTAL PROTEIN 6.4 6.3 - 8.2 g/dL 06/12/2024 4:04 PM [facility] ALBUMIN 3.6 3.5 - 5.0 g/dL 06/12/2024 4:04 PM [facility] A/G RATIO 1.3 1.0 - 2.2 06/12/2024 4:04 PM [facility] CALCIUM 9.1 8.7 - 10.5 mg/dL 06/12/2024 4:04 PM T [facility] T BILI 0.2 0.2 - 1.2 mg/dL 06/12/2024 4:04 PM [facility] SGOT (AST) 20 5 - 34 U/L 06/12/2024 4:04 PM [facility] SGPT (ALT) 37 0 - 55 U/L 06/12/2024 4:04 PM [facility] ALKALINE PHOSPHATASE 59 40 - 150 U/L 06/12/2024 4:04 PM [facility] IS THE PATIENT REQUIRED TO BE FASTING? No 06/12/2024 4:04 PM [facility] GFR, ESTIMATED >60 >=60 06/12/2024 4:04 PM [facility] Comment: Creatinine Clearance is the preferred criteria for selecting drug dose adjustments in renally impaired patients. ??The GFR is provided as additional pertinent clinical information. GFR is reported in mL/min/1.73 sq m. Calculation based on the Chronic Kidney Disease Epidemiology Collaboration (CKD- EPI) equation refit without adjustment for race. GFR, EST. >60 >=60 024 4:04 PM CDT [facility] GFR, EST. NONAFRICAN >60 >=60 06/12/2024 4:04 PM CDT [facility] Blood Sub-Q Port Venou s Access Device (Medi-Port, Implanted Port) / Unknown 06/12/2024 2:14 PM CDT 06/12/2024 2:14 PM CDT Markus Finley MD CHEMISTRY ORDERABLES Fin al Result Performing Organization Address City/[facility]/ZIP Co de Phone Number [facility] [address] [place] [address] * COMPLETE BLOOD COUNT (CBC) WITH DIFF [...] mcg/dL 05/01/2024 4:1 3 PM CDT [facility] Blood Venipuncture / Unknown 05/01/2024 2:38 PM CDT 05/01/2024 2:38 PM CDT Narrative [facility] - 05/01/2024 4:13 PM CDT AM: ??4 TO 19 mcg/dL PM: ??Approx. Half of AM Value ?? us Markus Finley MD CHEMISTRY ORDERABLES Fin al Result [facility] [address] [place] [address] documented in this encounter Visit Diagnoses Diagnosis [...] mg documented in this encounter Care Teams Supervisor Drying Relationship Specialty Start Date End Date Pritesh Chu MD [address] [place] [address] PCP - General Family Medicine 04/18/24 Markus Finley MD [address] [place] [address] Consulting Physician Medical Oncology 04/18/24 documented as of this encounter
--- OUTSIDE RECORDS SUMMARY | 2024-10-26 10:56 | XMS_ITS | Encounter Summary ---
Author Organization [facility] Address [address] [facility] [place] [address] Phone Care Team Providers Care Heavy Mobile Equipment Repairer Name Role Phone Pritesh Chu MD Primary Care Provider [phone] Markus Finley MD Unavailable [phone] Reason for Referral * Radiology Services (Routine) - Closed Specialty Diagnoses / Procedures Referred By Delbert villareal Referred To Contact Diagnoses Metastatic melanoma (HCC) Procedures MRI BRAIN W/WO CONTRAST Markus Finley MD [address] [place] [address] Phone: tel: fax: [facility] [address] [address] Phone: tel: fax: Referral ID Status Reason Start Date Expiration Date Visits Re quested Visits Authorized [id number] Closed 04/18/2024 1 1 Reason for Visit * Reason Comments New Patient Metastatic melanoma * Consult, Test & Initiate Treatment (Routine) - Open Specialty Diagnoses / Procedures Referred By Contac t Referred To Contact Radiology Diagnoses Metastatic melanoma (HCC) NON-[facility] [address] [place] [address] Phone: tel: fax: Referral ID Status Reason Start Date Expiration Date Visits Re quested Visits Authorized [id number] Open 1 1 Encounter Details Date Type Department Care Team (Late st Contact Info) Description 04/18/2024 3:00 PM CDT [facility] [address] [place] [phone] Markus Finley MD [address] [place] [address] Metastatic melanoma (HCC) (Primary Dx) [...] sent through Care Everywhere. 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 Genetics Risk Assessment Discussed/N/A Allergies as of [...] attempt to complete this imaging study at [facility] as it is easier to access this hospital from patient's home. 3. 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 Genetics Risk Assessment Discussed/N/A Allergies as of [...] attempt to complete this imaging study at [facility] as it is easier to access this [...] treatment 05/01. MRIbrain to be scheduled at [facility]. documented in this encounter Plan of Treatment Upcoming Encounters Date Type Department Care Team (Late st Contact Info) Description 11/15/2024 1:00 PM ONLINE PROGRAM COORDINATOR Lab [facility] Laboratory Services 1 [place] [address] Markus Finley MD [address] [place] [address] 11/15/2024 2:00 PM ONLINE PROGRAM COORDINATOR Appointment [facility] MRI 1 [place] [phone] Markus Finley MD [address] [place] [address] Discharge Disposition: Discharged to home or Selfcare [...] 12.00 10(3)/mcL 04/18/2024 4:54 PM CDT [facility] RBC 4.87 3.80 - 5.30 10(6)/mcL 04/18/2024 4:54 PM CDT [facility] HEMOGLOBIN (HGB) 14.7 12.0 - 15.8 g/dL 04/18/2024 4:54 PM CDT [facility] HEMATOCRIT (HCT) 42.4 36.0 - 47.0 % 04/18/2024 4:54 PM CDT [facility] MCV 87.1 82.0 - 96.0 fL 04/18/2024 4:54 PM CDT [facility] MCH 30.2 26.0 - 34.0 pg 04/18/2024 4:54 PM CDT [facility] MCHC 34.7 31.0 - 36.0 g/dL 04/18/2024 4:54 PM CDT [facility] PLATELET COUNT 266 140 - 440 10(3)/mcL 04/18/2024 4:54 PM CDT [facility] RDW 11.4(L) 11.8 - 15.5 % 04/18/2024 4:54 PM CDT [facility] MPV 10.9 9.7 - 12.4 fL 04/18/2024 4:54 PM CDT [facility] NEUTROPHILS 62.8 47.0 - 73.0 % 04/18/2024 4:54 PM CDT [facility] LYMPHOCYTES 29.2 18.0 - 42.0 % 04/18/2024 4:54 PM CDT [facility] MONOCYTES 6.1 4.0 - 12.0 % 04/18/2024 4:54 PM CDT [facility] EOSINOPHILS 1.3 0.0 - 5.0 % 04/18/2024 4:54 PM CDT [facility] BASOPHILS 0.6 0.0 - 1.0 % 04/18/2024 4:54 PM CDT [facility] ABSOLUTE NEUTROPHILS 5.28 1.60 - 7.70 10(3)/mcL 04/18/2024 4:54 PM CDT [facility] ABSOLUTE LYMPHOCYTES 2.45 1.30 - 3.20 10(3)/mcL 04/18/2024 4:54 PM CDT [facility] ABSOLUTE MONOCYTES 0.51 0.20 - 1.00 10(3)/mcL 04/18/2024 4:54 PM CDT [facility] ABSOLUTE EOSINOPHIL 0.11 0.00 - 0.40 10(3)/mcL 04/18/2024 4:54 PM CDT [facility] ABSOLUTE BASOPHILS 0.05 0.00 - 0.10 10(3)/mcL 04/18/2024 4:54 PM CDT [facility] NRBC PER 100 WBC 0 04/18/20 24 4:54 PM CDT [facility] Blood Venipuncture / Unknown 04/18/2024 4:28 PM CDT 04/18/2024 4:28 PM CDT us Markus Finley MD HEMATOLOGY ORDERABLES Fi nal Result [facility] [address] [place] [address] * (ABNORMAL) CMP (Comprehensive Metabolic Panel) (04/18/2024 4:28 PM CDT) SODIUM 140 136 - 145 mmol/L 04/18/2024 5:13 PM CDT [facility] POTASSIUM 3.6 3.5 - 5.1 mmol/L 04/18/2024 5:13 PM CDT [facility] CHLORIDE 107 98 - 107 mmol/L 04/18/2024 5:13 PM CDT [facility] CO2, VENOUS 22 22 - 30 mmol/L 04/18/2024 5:13 PM CDT [facility] ANION GAP 14.6 <18.0 mmol/L 04/18/2024 5:13 PM CDT [facility] GLUCOSE 105(H) 70 - 99 mg/dL 04/18/2024 5:13 PM CDT [facility] BUN 14 5 - 18 mg/dL 04/18/2024 5:13 PM CDT [facility] CREATININE, BLOOD 0.94 0.60 - 1.00 mg/dL 04/18/2024 5:13 PM CDT [facility] BUN/CREATININE RATIO 15 12 - 20 ratio 04/18/2024 5:13 PM CDT [facility] TOTAL PROTEIN 7.9 6.3 - 8.2 g/dL 04/18/2024 5:13 PM CDT [facility] ALBUMIN 4.3 3.5 - 5.0 g/dL 04/18/2024 5:13 PM CDT [facility] A/G RATIO 1.2 1.0 - 2.2 04/18/2024 5:13 PM CDT [facility] CALCIUM 9.9 8.7 - 10.5 mg/dL 04/18/2024 5:13 PM CDT [facility] T BILI 0.3 0.2 - 1.2 mg/dL 04/18/2024 5:13 PM CDT [facility] SGOT (AST) 24 5 - 34 U/L 04/18/2024 5:13 PM CDT [facility] SGPT (ALT) 30 0 - 55 U/L 04/18/2024 5:13 PM CDT [facility] ALKALINE PHOSPHATASE 47 40 - 150 U/L 04/18/2024 5:13 PM CDT [facility] GFR, ESTIMATED >60 >=60 04/18/2024 5:13 PM CDT [facility] Comment: Creatinine Clearance is the preferred criteria for selecting drug dose adjustments in renally impaired patients. ??The GFR is provided as additional pertinent clinical information. GFR is reported in mL/min/1.73 sq m. Calculation based on the Chronic Kidney Disease Epidemiology Collaboration (CKD- EPI) equation refit without adjustment for race. GFR, EST. >60 >=60 024 5:13 PM CDT [facility] GFR, EST. NONAFRICAN >60 >=60 04/18/2024 5:13 PM CDT [facility] Blood Venipuncture / Unknown 04/18/2024 4:28 PM CDT 04/18/2024 4:28 PM CDT us Markussarthak Finley MD CHEMISTRY ORDERABLES Fin al Result Performing Organization Address City/[facility]/ZIP Co de Phone Number [facility] [address] [place] [address] * (ABNORMAL) LACTATE DEHYDROGENASE (LD) (04/18/2024 4:28 PM CDT) LDH 229(H) 125 - 220 U/L 04/18/2024 5:13 PM CDT [facility] Blood Venipuncture / Unknown 04/18/2024 4:28 PM CDT 04/18/2024 4:28 PM CDT us Markus Finley MD CHEMISTRY ORDERABLES Fin al Result Performing Organization Address [place]/[facility] Co de Phone Number [facility] [address] [place] [address] documented in this encounter Visit Diagnoses Diagnosis Metastatic melanoma (HCC)- Primary Melanoma of skin, site unspecified documented in this encounter Care Teams Heavy Mobile Equipment Repairer Relationship Specialty Start Date End Date Pritesh Chu MD [address] [address] PCP - General Family Medicine 04/18/24 Markus Finley MD [address] [place] [address] Consulting Physician Medical Oncology 04/18/24 documented as of this encounter
--- OUTSIDE RECORDS SUMMARY | 2024-10-26 10:56 | XMS_ITS | Encounter Summary ---
Author Organization [facility] Address [address] [address] Phone Care Team Providers Care Military Personnel Specialist Name Role Phone Pritesh Chu MD Primary Care Provider [phone] Markus Finley MD Unavailable [phone] Encounter Details Date Type Department Care Team (Late st Contact Info) Description 05/02/2024 Documentation Only [facility] Oncology Services [address] [place] [phone] Markus Finley MD [address] [place] [address] Social History Tobacco Use Types Packs/Day Years [...] junel Fe24 Vitamins: none listed Labs: 04/18/24-albumin=4.3, UK=320, Is=915, K=3.6, EGFR>60 Initial Wt: 293# -05/01/2024 Height: 5' 7 BMI: 45.94 BMI weight range for height: 121-158# Adjusted BW: 170# EMR wt hx: 290# -04/18/2024 ([facility] ON[facility]) 288# 9oz-03/06/2024 290# -10/04/2023 285# - %Wt Loss: 0% Estimated needs:(based on adjusted BW) Calories: 1760-9852 (25-30kcal/kg) Protein: 77-100gm (1-1.3gm/kg) Fluids: 2300ml A: [...] st Contact Info) Description 11/15/2024 1:00 PM OVERLOCK HEMMER [facility] [address] [place] [address] Markus Finley MD [address] [place] [address] 11/15/2024 2:00 PM OVERLOCK HEMMER [facility]ment [facility] 1 [place] [address] Markus Finley MD [address] [place] [address] Discharge Disposition: Discharged to home or Selfcare documented as of this encounter Visit Diagnoses Not on filedocumented in this encounter Care Teams Military Personnel Specialist Relationship Specialty Start Date End Date Pritesh Chu MD [address] [address] PCP - General Family Medicine 04/18/24 Markus Finley MD [address] [place] [address] Consulting Physician Medical Oncology 04/18/24 documented as of this encounter
--- OUTSIDE RECORDS SUMMARY | 2024-10-26 10:56 | XMS_ITS ---
Author Organization [facility] Address [address] [place] [address] Phone Care Team Providers Care Tax Map Technician Name Role Phone Pritesh Chu MD Primary Care Provider [phone] Markus Finley MD Unavailable [phone] Zander Cha MD Unavailable Ambulatory Transitions of Care Status:Closed (Closed) Start date:07/30/2024 Enrollment date:07/31/2024 End date:08/09/2024 Close reason:Patient graduated Related social drivers of health:Intimate Partner Violence, Social Connections, Alcohol Use, Tobacco Use, Financial Resource Strain,Depression, Stress, Physical Activity, Food Insecurity, Transportation Needs, Housing Stability, Utilities Continued Care and Services Coordination
--- OUTSIDE RECORDS SUMMARY | 2024-10-26 10:56 | XMS_ITS | Encounter Summary ---
Author Organization [facility] Care Team Providers Care Tar Kettle Runner Name Role Phone Pritesh Chu MD Primary Care Provider [phone] Markus Finley MD Unavailable [phone] Encounter Details Date Type Department Care Team [...] st Contact Info) Description 11/15/2024 1:00 PM IMITATION MARBLE MECHANIC Lab [facility] Laboratory Services 1 [place] [address] Markus Finley MD [address] [place] [address] 11/15/2024 2:00 PM IMITATION MARBLE MECHANIC Appointment [facility] MRI [address] [place] [address] Markus Finley MD [address] [place] [address] Discharge Disposition: Discharged to home or Selfcare documented as of this encounter Visit Diagnoses Not on filedocumented in this encounter Care Teams Tar Kettle Runner Relationship Specialty Start Date End Date Pritesh Chu MD [address] [address] PCP - General Family Medicine 04/18/24 Markus Finley MD [address] [place] [address] Consulting Physician Medical Oncology 04/18/24 documented as of this encounter
--- OUTSIDE RECORDS SUMMARY | 2024-10-26 10:56 | XMS_ITS | Encounter Summary ---
Author Organization [facility] Address [address] [facility] [place] [address] Phone Care Team Providers Care Entrepreneurship Program Director Name Role Phone Pritesh Chu MD Primary Care Provider [phone] Markus Finley MD Unavailable [phone] Encounter Details Date Type Department Care Team (Latest Contact Info) Description 04/19/2024 7:03 AM CDT - 04/19/2024 7:09 AM CDT Hospital Encounter [facility] Radiology Resources [address] [place] [phone] Markus Finley MD [address] [place] [address] Discharge Disposition: Discharged to home or Selfcare [...] st Contact Info) Description 11/15/2024 1:00 PM SAGGER SOAK Lab [facility] 1 [place] [address] Markus Finlye MD [address] [place] [address] 11/15/2024 2:00 PM SAGGER SOAK [facility] 1 [facility] [place] [address] Markus Finley MD [address] [place] [address] Discharge Disposition: Discharged to home or Selfcare documented as of this encounter Procedures Procedure Name Priority Date/Time Associated Diagnosis Comments PET REFERENCE IMAGES FOR IMPORT Routine 04/19/2024 7:03 AM CDT documented in this encounter Results * PET REFERENCE IMAGES FOR IMPORT (04/19/2024 7:03 AM CDT) Markus Finley MD [facility] [place] ORDERABLES Final Result documented in this encounter Visit Diagnoses Not on filedocumented in this encounter Care Teams Entrepreneurship Program Director Relationship Specialty Start Date End Date Pritesh Chu MD [address] [place] [address] PCP - General Family Medicine 04/18/24 Markus Finley MD [address] [place] [address] Consulting Physician Medical Oncology 04/18/24 documented as of this encounter
--- OUTSIDE RECORDS SUMMARY | 2024-10-26 10:56 | XMS_ITS | Encounter Summary ---
Author Organization [facility] Address [address] 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 Genetics Risk Assessment Discussed/N/A Allergies as of [...] st Contact Info) Description 11/15/2024 1:00 PM ADJUSTER LEADER Lab [facility] Laboratory Services 1 [place] [address] Markus Finley MD [address] [place] [address] 11/15/2024 2:00 PM ADJUSTER LEADER [facility]ointment [facility] MRI 1 [place] [address] Markus Finley MD [address] [place] [address] Discharge Disposition: Discharged to home or Selfcare documented as of this encounter Visit Diagnoses Diagnosis Metastatic melanoma (HCC)- Primary Melanoma of skin, site unspecified documented in this encounter Care Teams Balling Machine Operator Relationship Specialty Start Date End Date Pritesh Chu MD [address] [place] [address] PCP - General Family Medicine 04/18/24 Markus Finley MD [address] [place] [address] Consulting Physician Medical Oncology 04/18/24 documented as of this encounter
--- OUTSIDE RECORDS SUMMARY | 2024-10-26 10:56 | XMS_ITS | Encounter Summary ---
Author Organization [facility] Address [address] [facility] [place] [address] Phone Care Team Providers Care Mother Tester Name Role Phone Pritesh Chu MD Primary Care Provider [phone] Markus Finley MD Unavailable [phone] Encounter Details Date Type Department Care Team (Latest Contact Info) Description 04/19/2024 7:10 AM CDT - 04/19/2024 11:59 PM CDT Hospital Encounter [facility] Radiology Resources 1 [place] [address] Markus Finley MD [address] [place] [address] Discharge Disposition: Discharged to home or Selfcare [...] st Contact Info) Description 11/15/2024 1:[address] MIXER OPERATOR Lab [facility] 1 [place] [address] Markus Finley MD [address] [place] [address] 11/15/2024 2:[address] MIXER OPERATOR [facility]ment [facility] 1 [facility] [place] [address] Markus Finley MD [address] [place] [address] Discharge Disposition: Discharged to home or Selfcare documented as of this encounter Procedures Procedure Name Priority Date/Time Associated Diagnosis Comments PET REFERENCE IMAGES FOR IMPORT Routine 04/19/2024 7:10 AM CDT documented in this encounter Results * PET REFERENCE IMAGES FOR IMPORT (04/19/2024 7:10 AM CDT) Markus Finley MD [facility] [place] ORDERABLES Final Result documented in this encounter Visit Diagnoses Not on filedocumented in this encounter Care Teams Mother Tester Relationship Specialty Start Date End Date Pritesh Chu MD [address] [place] [address] PCP - General Family Medicine 04/18/24 Markus Finley MD [address] [place] [address] Consulting Physician Medical Oncology 04/18/24 documented as of this encounter
--- OUTSIDE RECORDS SUMMARY | 2024-10-26 10:56 | XMS_ITS | Encounter Summary ---
Author Organization [facility] Care Team Providers Care Microfilm Processor Name Role Phone Pritesh Chu MD Primary Care Provider [phone] Markus Finley MD Unavailable [phone] Encounter Details Date Type Department Care Team [...] Contact Info) Description 11/15/2024 1:00 PM ACADEMIC AFFAIRS MANAGER Lab [facility] Laboratory Services 1 [place] [phone] Markus Finley MD [address] [place] [address] 11/15/2024 2:00 PM ACADEMIC AFFAIRS MANAGER Appointment [facility] MRI [address] [place] [address] Markus Finley MD [address] [place] [address] Discharge Disposition: Discharged to home or Selfcare documented as of this encounter Visit Diagnoses Not on filedocumented in this encounter Care Teams Microfilm Processor Relationship Specialty Start Date End Date Pritesh Chu MD [address] [address] PCP - General Family Medicine 04/18/24 Markus Finley MD [address] [place] [address] Consulting Physician Medical Oncology 04/18/24 documented as of this encounter
--- OUTSIDE RECORDS SUMMARY | 2024-10-26 11:14 | XMS_ITS | Encounter Summary ---
Author Organization [facility] [employer] [facility] Address [address] [place] [address] Care Team Providers Care Cake Icer And Packer Name Role Phone Pritesh Chu MD Primary Care Provider [phone] Encounter Details Date Type Department Care Team (Late st Contact Info) Description 10/22/2024 Orders Only [facility] Oncology and Hematology - [place] [address] [place] [address] [address] [place] [address] Christopher Meeks MD [address] [facility] [address] [place] [address] Malignant melanoma of lower extremity, [...] laterality documented in this encounter Care Teams Cake Icer And Packer Relationship Specialty Start Date End Date Pritesh Chu MD [address] [place] [address] PCP - General Family Practice 09/13/23 documented as of this encounter
--- OUTSIDE RECORDS SUMMARY | 2024-10-26 11:14 | XMS_ITS | Encounter Summary ---
Author Organization [facility] [employer] [facility] Address [address] [place] [address] Care Team Providers Care Intern Architect Name Role Phone Pritesh Chu MD Primary Care Provider [phone] Encounter Details Date Type Department Care Team (Late st Contact Info) Description 09/10/2024 Orders Only [facility] Oncology and Hematology - [place] [address] [place] [address] [address] [place] [address] Christopher Meeks MD [address] [facility] [address] [place] [address] Malignant melanoma of lower extremity, [...] laterality documented in this encounter Care Teams Intern Architect Relationship Specialty Start Date End Date Pritesh Chu MD [address] [place] [address] PCP - General Family Practice 09/13/23 documented as of this encounter
--- OUTSIDE RECORDS SUMMARY | 2024-10-26 11:14 | XMS_ITS | Encounter Summary ---
Author Organization [facility] Address [address] [place] [address] Care Team Providers Care Wireless Cellular Technician Name Role Phone Pritesh Chu MD Primary Care Provider [phone] Encounter Details Date Type Department Care Team [...] on filedocumented in this encounter Care Teams Wireless Cellular Technician Relationship Specialty Start Date End Date Pritesh Chu MD [address] [place] [address] PCP - General Family Practice 09/13/23 documented as of this encounter
--- OUTSIDE RECORDS SUMMARY | 2024-10-26 11:14 | XMS_ITS | Encounter Summary ---
Author Organization [facility] [employer] [facility] Address [address] [place] [address] Care Team Providers Care Regional Account Executive Name Role Phone Pritesh Chu MD Primary Care Provider Encounter Details Date Type Department Care Team (Late st Contact Info) Description 07/30/2024 Orders Only [facility] Oncology and Hematology - [place] [address] [place] [address] [address] [place] [address] Christopher Meeks MD [address] [facility] [address] [place] [address] Malignant melanoma of lower extremity, [...] laterality documented in this encounter Care Teams Regional Account Executive Relationship Specialty Start Date End Date Pritesh Chu MD [address] [place] [address] PCP - General Family Practice 09/13/23 documented as of this encounter
--- OUTSIDE RECORDS SUMMARY | 2024-10-26 11:14 | XMS_ITS | Clinical Summary ---
Author Organization [facility] Address [address] [place] [address] Care Team Providers Care Quality Assurance Monitor Body Name Role Phone Pritesh Chu MD Primary Care Provider [phone] Allergies No known active allergies Medications Medication [...] Department Care Team Description 10/22/2024 Orders Only [facility] Oncology and Hematology - [place] [address] [place] [address] Christopher Meeks MD Malignant melanoma of lower extremity, unspecified laterality 10/08/2024 Orders Only [facility] Oncology and Hematology - [place] [address] [place] [address] Christopher Meeks MD Malignant melanoma of lower extremity, unspecified laterality 09/24/2024 Orders Only [facility] Oncology and Hematology - [place] [address] [place] [address] Christopher Meeks MD Malignant melanoma of lower extremity, unspecified laterality 09/10/2024 Orders Only [facility] Oncology and Hematology - [place] [address] [place] [address] Christopher Meeks MD Malignant melanoma of lower extremity, unspecified laterality 08/27/2024 Orders Only [facility] Oncology and Hematology - [place] [address] [place] [address] Christopher Meeks MD Malignant melanoma of lower extremity, unspecified laterality 08/13/2024 Orders Only [facility] Oncology and Hematology - [place] [address] [place] [address] Christopher Meeks MD Malignant melanoma of lower extremity, unspecified laterality 07/30/2024 Orders Only [facility] Oncology and Hematology - [place] [address] [place] [address] Christopher Meeks MD Malignant melanoma [...] cm (5' 7 ) 09/13/2023 8:48 AM STAFF NURSE MIDWIFE Body Mass Index 45.2 09/13/2023 8:48 AM STAFF NURSE MIDWIFE Plan of Treatment Health Maintenance Due Date [...] age to complete this topic Care Teams Quality Assurance Monitor Body Relationship Specialty Start Date End Date Pritesh Chu MD [address] [place] [address] PCP - General Family Practice 09/13/23
--- OUTSIDE RECORDS SUMMARY | 2024-10-26 11:14 | XMS_ITS | Encounter Summary ---
Author Organization [facility] [employer] [facility] Address [address] [place] [address] Care Team Providers Care Gas Well Pumper Name Role Phone Pritesh Chu MD Primary Care Provider [phone] Encounter Details Date Type Department Care Team (Late st Contact Info) Description 09/24/2024 Orders Only [facility] Oncology and Hematology - [place] [address] [place] [address] [address] [place] [address] Christopher Meeks MD [address] [facility] [address] [place] [address] Malignant melanoma of lower extremity, [...] laterality documented in this encounter Care Teams Gas Well Pumper Relationship Specialty Start Date End Date Pritesh Chu MD [address] [place] [address] PCP - General Family Practice 09/13/23 documented as of this encounter
--- OUTSIDE RECORDS SUMMARY | 2024-10-26 11:14 | XMS_ITS | Encounter Summary ---
Author Organization [facility] [employer] [facility] Address [address] [place] [address] Care Team Providers Care Partner Cco Name Role Phone Pritesh Chu MD Primary Care Provider [phone] Encounter Details Date Type Department Care Team (Late st Contact Info) Description 08/13/2024 Orders Only [facility] Oncology and Hematology - [place] [address] [place] [address] [address] [place] [address] Christopher Meeks MD [address] [facility] [address] [place] [address] Malignant melanoma of lower extremity, [...] laterality documented in this encounter Care Teams Partner Cco Relationship Specialty Start Date End Date Pritesh Chu MD [address] [place] [address] PCP - General Family Practice 09/13/23 documented as of this encounter
--- OUTSIDE RECORDS SUMMARY | 2024-10-26 11:14 | XMS_ITS | Encounter Summary ---
Author Organization [facility] [employer] [facility] Address [address] [place] [address] Care Team Providers Care Elementary Tutor Name Role Phone Pritesh Chu MD Primary Care Provider [phone] Encounter Details Date Type Department Care Team (Late st Contact Info) Description 08/27/2024 Orders Only [facility] Oncology and Hematology - [place] [address] [place] [address] [address] [place] [address] Christopher Meeks MD [address] [facility] [address] [place] [address] Malignant melanoma of lower extremity, [...] laterality documented in this encounter Care Teams Elementary Tutor Relationship Specialty Start Date End Date Pritesh Chu MD [address] [place] [address] PCP - General Family Practice 09/13/23 documented as of this encounter
--- OUTSIDE RECORDS SUMMARY | 2024-10-26 11:14 | XMS_ITS | Encounter Summary ---
Author Organization [facility] [employer] [facility] Address [address] [place] [address] Care Team Providers Care Emergency Department Manager Name Role Phone Pritesh Chu MD Primary Care Provider [phone] Encounter Details Date Type Department Care Team (Late st Contact Info) Description 10/08/2024 Orders Only [facility] Oncology and Hematology - [place] [address] [place] [address] Dr [address] [place] [address] Christopher Meeks MD [address] [facility] [address] [place] [address] Malignant melanoma of lower extremity, [...] laterality documented in this encounter Care Teams Emergency Department Manager Relationship Specialty Start Date End Date Pritesh Chu MD [address] [place] [address] PCP - General Family Practice 09/13/23 documented as of this encounter
--- OUTSIDE RECORDS SUMMARY | 2024-10-26 11:14 | XMS_ITS | Encounter Summary ---
Author Organization [facility] [employer] [facility] Address [address] [place] [address] Care Team Providers Care Dynamics Ax Technical Architect Name Role Phone Pritesh Chu MD Primary Care Provider [phone] Encounter Details Date Type Department Care Team (Late st Contact Info) Description 07/16/2024 Orders Only [facility] Oncology and Hematology - [place] [address] [facility] [address] [place] [address] Christopher Meeks MD [address] [facility] [address] [place] [address] Malignant melanoma of lower extremity, [...] laterality documented in this encounter Care Teams Dynamics Ax Technical Architect Relationship Specialty Start Date End Date Pritesh Chu MD [address] [place] [address] PCP - General Family Practice 09/13/23 documented as of this encounter
--- OUTSIDE RECORDS SUMMARY | 2024-10-26 11:15 | XMS_ITS | Encounter Summary ---
Author Organization [facility] [facility] Address [address] [place] [address] Care Team Providers Care Reverse Engineer Name Role Phone Pritesh Chu MD Primary Care Provider [phone] Encounter Details Date Type Department Care Team (Late st Contact Info) Description 02/27/2024 Orders Only [facility] Oncology and Hematology - [place] [address] [place] [address] [address] [place] [address] Christopher Meeks MD [address] [facility] [address] [place] [address] Malignant melanoma of lower extremity, [...] laterality documented in this encounter Care Teams Reverse Engineer Relationship Specialty Start Date End Date Pritesh Chu MD [address] [place] [address] PCP - General Family Practice 09/13/23 documented as of this encounter
--- OUTSIDE RECORDS SUMMARY | 2024-10-26 11:15 | XMS_ITS | Encounter Summary ---
Author Organization [facility] Address [address] [place] [address] Care Team Providers Care African History Professor Name Role Phone Pritesh Chu MD Primary Care Provider [phone] Encounter Details Date Type Department Care Team [...] on filedocumented in this encounter Care Teams African History Professor Relationship Specialty Start Date End Date Pritesh Chu MD [address] [place] [address] PCP - General Family Practice 09/13/23 documented as of this encounter
--- OUTSIDE RECORDS SUMMARY | 2024-10-26 11:15 | XMS_ITS | Encounter Summary ---
Author Organization [facility] [employer] [facility] Address [address] [place] [address] Care Team Providers Care Rotary Envelope Machine Operator Name Role Phone Pritesh Chu MD Primary Care Provider [phone] Encounter Details Date Type Department Care Team (Late st Contact Info) Description 07/02/2024 Orders Only [facility] Oncology and Hematology - [place] [address] [place] [address] Dr [address] [place] [address] Christopher Meeks MD [address] [facility] [address] [place] [address] Malignant melanoma of lower extremity, [...] laterality documented in this encounter Care Teams Rotary Envelope Machine Operator Relationship Specialty Start Date End Date Pritesh Chu MD [address] [place] [address] PCP - General Family Practice 09/13/23 documented as of this encounter
--- OUTSIDE RECORDS SUMMARY | 2024-10-26 11:15 | XMS_ITS | Encounter Summary ---
Author Organization [facility] [employer] [facility] Address [address] [place] [address] Care Team Providers Care Utility Bill Complaints Investigator Name Role Phone Pritesh Chu MD Primary Care Provider [phone] Encounter Details Date Type Department Care Team (Late st Contact Info) Description 02/29/2024 Orders Only [facility] Oncology and Hematology - [place] [address] [facility] [address] [place] [address] Christopher Meeks MD [address] [facility] [address] [place] [address] Malignant melanoma of lower extremity, [...] Primary documented in this encounter Care Teams Utility Bill Complaints Investigator Relationship Specialty Start Date End Date Pritesh Chu MD [address] [place] [address] PCP - General Family Practice 09/13/23 documented as of this encounter
--- OUTSIDE RECORDS SUMMARY | 2024-10-26 11:15 | XMS_ITS | Encounter Summary ---
Author Organization [facility] Address [address] [place] [address] [address] [place] [address] Phone Care Team Providers Care Rn Admission Name Role Phone Pritesh Chu MD Primary Care Provider [phone] Encounter Details Date Type Department Care Team (Late st Contact Info) Description 08/01/2024 Documentation Only [place] [employer] [facility] [address] [facility] [address] [place] [address] Urbano Quiñonez MD [address] [place] [address] [address] [place], [place] [id number] Social History Tobacco Use Types Packs/Day Years [...] on filedocumented in this encounter Care Teams Rn Admission Relationship Specialty Start Date End Date Pritesh Chu MD [address] [place] [address] PCP - General Family Medicine 07/29/24 documented as of this encounter
--- OUTSIDE RECORDS SUMMARY | 2024-10-26 11:15 | XMS_ITS | Encounter Summary ---
Author Organization [facility] Address [address] [place] [address] Care Team Providers Care Wood Casket Assembler Name Role Phone Pritesh Chu MD Primary Care Provider [phone] Encounter Details Date Type Department Care Team [...] on filedocumented in this encounter Care Teams Wood Casket Assembler Relationship Specialty Start Date End Date Pritesh Chu MD [address] [place] [address] PCP - General Family Practice 09/13/23 documented as of this encounter
--- OUTSIDE RECORDS SUMMARY | 2024-10-26 11:15 | XMS_ITS | Encounter Summary ---
Author Organization [facility] Address [address] [place] [address] Phone Care Team Providers Care Starch Dumper Name Role Phone Pritesh Chu MD Primary Care Provider [phone] Encounter Details Date Type Department Care Team (Late st Contact Info) Description 08/02/2024 Patient Outreach - [facility] [place] [employer] [facility] [facility] [address] [facility] [address] [place] [address] Letty Garcai [address] [facility] [address] [place] [address] Social History Tobacco Use Types [...] Call Status: No answer - second attempt ([facility] 08.02.24) documented in this encounter Plan of Treatment Not on file documented as of this encounter Visit Diagnoses Not on filedocumented in this encounter Care Teams Starch Dumper Relationship Specialty Start Date End Date Pritesh Chu MD [address] [place] [address] PCP - General Family Medicine 07/29/24 documented as of this encounter
--- OUTSIDE RECORDS SUMMARY | 2024-10-26 11:15 | XMS_ITS | Encounter Summary ---
Author Organization [facility] Address [address] [place] [address] Care Team Providers Care Production Hand Name Role Phone Pritesh Chu MD Primary Care Provider [phone] Encounter Details Date Type Department Care Team [...] on filedocumented in this encounter Care Teams Production Hand Relationship Specialty Start Date End Date Pritesh Chu MD [address] [place] [address] PCP - General Family Practice 09/13/23 documented as of this encounter
--- OUTSIDE RECORDS SUMMARY | 2024-10-26 11:15 | XMS_ITS | Encounter Summary ---
Author Organization [facility] Address [address] [place] [address] Care Team Providers Care Filler Machine Operator Name Role Phone Pritesh Chu MD Primary Care Provider [phone] Reason for Visit * Reason Onset Date Comments Needs Appointment 03/07/2024 Encounter Details Date Type Department Care Team (Late st Contact Info) Description 03/07/2024 Telephone [facility] [address] [facility] [address] [place] [address] [place] [address] [facility] [address] [place] [address] Needs Appointment Social History Tobacco [...] on filedocumented in this encounter Care Teams Filler Machine Operator Relationship Specialty Start Date End Date Pritesh Chu MD [address] [place] [address] PCP - General Family Practice 09/13/23 documented as of this encounter
--- OUTSIDE RECORDS SUMMARY | 2024-10-26 11:15 | XMS_ITS | Encounter Summary ---
Author Organization [facility] Address [address] [place] [address] Care Team Providers Care Fiscal Analyst Name Role Phone Pritesh Chu MD Primary Care Provider [phone] Encounter Details Date Type Department Care Team [...] on filedocumented in this encounter Care Teams Fiscal Analyst Relationship Specialty Start Date End Date Pritesh Chu MD [address] [place] [address] PCP - General Family Practice 09/13/23 documented as of this encounter
--- OUTSIDE RECORDS SUMMARY | 2024-10-26 11:15 | XMS_ITS | Encounter Summary ---
Author Organization [facility] [employer] [facility] Address [address] [place] [address] Care Team Providers Care Open Hearth Worker Name Role Phone Pritesh Chu MD Primary Care Provider [phone] Reason for Visit * Reason Comments Chemotherapy Encounter Details Date Type Department Care Team (Late st Contact Info) Description 10/04/2023 9:15 AM LEG ASSEMBLER Office Visit [facility] Oncology and Hematology - [place] [address] [facility] [address] [place] [address] Christopher Meeks MD [address] [facility] [address] [place] [address] Malignant melanoma of lower extremity, [...] Comments Blood Pressure 139/98 10/04/2023 9:02 AM LEG ASSEMBLER Pulse 81 10/04/2023 9:01 AM LEG ASSEMBLER Temperature 36.2 ??C (97.2 ??F) 10/04/2023 9:01 AM CS T Respiratory Rate 16 10/04/2023 9:01 AM LEG ASSEMBLER Oxygen Saturation 98% 10/04/2023 9:01 AM LEG ASSEMBLER Inhaled Oxygen Concentration - - Weight 131.6 kg (290 lb 3.2 oz) 10/04/2023 9:01 AM LEG ASSEMBLER Height - - Body Mass Index 45.45 09/13/2023 8:48 AM LEG ASSEMBLER documented in this encounter Progress Notes * [...] a tobacco/nicotine user. 10/04/2023 Christopher Meeks MD ASSEMBLER documented in this encounter Plan of Treatment Not on file documented as of this encounter Visit Diagnoses Diagnosis Malignant melanoma of lower extremity, unspecified laterality- Primary documented in this encounter Care Teams Open Hearth Worker Relationship Specialty Start Date End Date Pritesh Chu MD [address] [place] [address] PCP - General Family Practice 09/13/23 documented as of this encounter
--- OUTSIDE RECORDS SUMMARY | 2024-10-26 11:15 | XMS_ITS | Encounter Summary ---
Author Organization [facility] [employer] [facility] Address [address] [place] [address] Care Team Providers Care Lobbyist Name Role Phone Pritesh Chu MD Primary Care Provider [phone] Encounter Details Date Type Department Care Team (Late st Contact Info) Description 05/07/2024 Orders Only [facility] Oncology and Hematology - [place] [address] [place] [address] [address] [place] [address] Christopher Meeks MD [address] [facility] [address] [place] [address] Malignant melanoma of lower extremity, [...] laterality documented in this encounter Care Teams Lobbyist Relationship Specialty Start Date End Date Pritesh Chu MD [address] [place] [address] PCP - General Family Practice 09/13/23 documented as of this encounter
--- OUTSIDE RECORDS SUMMARY | 2024-10-26 11:15 | XMS_ITS | Encounter Summary ---
Author Organization [employer] [facility] Address [address] [place] [address] [address] [place] [address] Phone Care Team Providers Care Gate Services Supervisor Name Role Phone Pritesh Chu MD Primary Care Provider [phone] Encounter Details Date Type Department Care Team (Late st Contact Info) Description 07/31/2024 Documentation Only [place] [employer] [facility] [address] [facility] [address] [place] [address] Urbano Quiñonez MD [address] [place] [address] [address] [place], [place] [id number] Social History Tobacco Use Types Packs/Day Years [...] on filedocumented in this encounter Care Teams Gate Services Supervisor Relationship Specialty Start Date End Date Pritesh Chu MD [address] [place] [address] [place] [address] PCP - General Family Medicine 07/29/24 documented as of this encounter
--- OUTSIDE RECORDS SUMMARY | 2024-10-26 11:15 | XMS_ITS | Encounter Summary ---
Author Organization [facility] [employer] [facility] Address [address] [place] [address] Care Team Providers Care Marine Farmer Name Role Phone Pritesh Chu MD Primary Care Provider [phone] Encounter Details Date Type Department Care Team (Late st Contact Info) Description 03/12/[address] [facility] Oncology and Hematology - [place] [address] [facility] [address] [place] [address] Christopher Meeks MD [address] [facility] [address] [place] [address] Malignant melanoma of lower extremity, [...] laterality documented in this encounter Care Teams Marine Farmer Relationship Specialty Start Date End Date Pritesh Chu MD [address] [place] [address] PCP - General Family Practice 09/13/23 documented as of this encounter
--- OUTSIDE RECORDS SUMMARY | 2024-10-26 11:15 | XMS_ITS | Encounter Summary ---
Author Organization [facility] Address [address] [place] [address] Care Team Providers Care Fishing Captain Name Role Phone Pritesh Chu MD Primary Care Provider [phone] Encounter Details Date Type Department Care Team [...] on filedocumented in this encounter Care Teams Fishing Captain Relationship Specialty Start Date End Date Pritesh Chu MD [address] [place] [address] PCP - General Family Practice 09/13/23 documented as of this encounter
--- OUTSIDE RECORDS SUMMARY | 2024-10-26 11:15 | XMS_ITS | Encounter Summary ---
Author Organization [employer] [facility] Address [address] [place] [address] [address] [place] [address] Phone Care Team Providers Care Sweatband Shaper Name Role Phone Pritesh Chu MD Primary Care Provider [phone] Encounter Details Date Type Department Care Team (Late st Contact Info) Description 08/08/2024 Documentation Only [employer] [facility] [address] [facility] [address] [place] [address] Urbano Quiñonez MD [address] [place] [address] [address] [place], [place] [id number] Social History Tobacco Use Types Packs/Day Years [...] on filedocumented in this encounter Care Teams Sweatband Shaper Relationship Specialty Start Date End Date Pritesh Chu MD [address] [place] [address] PCP - General Family Medicine 07/29/24 documented as of this encounter
--- OUTSIDE RECORDS SUMMARY | 2024-10-26 11:15 | XMS_ITS | Encounter Summary ---
Author Organization [facility] [employer] [facility] Address [address] [place] [address] Care Team Providers Care Daycare Provider Name Role Phone Pritesh Chu MD Primary Care Provider [phone] Encounter Details Date Type Department Care Team (Late st Contact Info) Description 12/05/2023 Orders Only [facility] Oncology and Hematology - [place] [address] [place] [address] [address] [place] [address] Christopher Meeks MD [address] [facility] [address] [place] [address] Malignant melanoma of lower extremity, [...] laterality documented in this encounter Care Teams Daycare Provider Relationship Specialty Start Date End Date Pritesh Chu MD [address] [place] [address] PCP - General Family Practice 09/13/23 documented as of this encounter
--- OUTSIDE RECORDS SUMMARY | 2024-10-26 11:15 | XMS_ITS | Encounter Summary ---
Author Organization [facility] [employer] [facility] Address [address] [place] [address] Care Team Providers Care Consultant Education Name Role Phone Pritesh Chu MD Primary Care Provider [phone] Reason for Visit * Reason Onset Date Comments PET Scan info 09/21/2023 LVM about resche duled PET Scan appt.09/27/23 @ 2pm (1:30pm arrival)6hr fast, water ok Encounter Details Date Type Department Care Team (Late st Contact Info) Description 09/21/2023 Telephone [facility] Oncology and Hematology - [place] [address] [place] [address] [address] [place] [address] Christopher Meeks MD [address] [facility] [address] [place] [address] PET Scan info (LVM about [...] 2pm (1:30pm arrival) 6hr fast, water ok ESTATE AGENT/BROKER documented in this encounter Plan of Treatment Not on file documented as of this encounter Visit Diagnoses Not on filedocumented in this encounter Care Teams Consultant Education Relationship Specialty Start Date End Date Pritesh Chu MD [address] [place] [address] PCP - General Family Practice 09/13/23 documented as of this encounter
--- OUTSIDE RECORDS SUMMARY | 2024-10-26 11:15 | XMS_ITS | Encounter Summary ---
Author Organization [facility] [employer] , [facility] Address [address] [place] [address] Phone Care Team Providers Care Industrial Maintenance Millwright Name Role Phone Pritesh Chu MD Primary Care Provider [phone] Encounter Details Date Type Department Care Team (Late st Contact Info) Description 08/01/2024 Patient Outreach - [facility] [address] [facility] [address] [place] [address] Letty Garcia [address] [place] [address] Social History Tobacco Use Types [...] on filedocumented in this encounter Care Teams Industrial Maintenance Millwright Relationship Specialty Start Date End Date Pritesh Chu MD [address] [place] [address] PCP - General Family Medicine 07/29/24 documented as of this encounter
--- OUTSIDE RECORDS SUMMARY | 2024-10-26 11:15 | XMS_ITS | Encounter Summary ---
Author Organization [facility] [employer] , [facility] Address [address] [place] [address] Phone Care Team Providers Care Hydraulic Jack Operator Name Role Phone Pritesh Chu MD Primary Care Provider Encounter Details Date Type Department Care Team (Late st Contact Info) Description 08/07/2024 [facility] [address] [facility] [address] [place] [address] Letty Garcia [address] [facility] [address] [place] [address] Social History Tobacco Use Types [...] 14 calendar days:: Home Discharging Facility: [facility] Discharge diagnosis: N17.9, K52.9, C43.9 Date of [...] on filedocumented in this encounter Care Teams Hydraulic Jack Operator Relationship Specialty Start Date End Date Pritesh Chu MD [address] [address] PCP - General Family Medicine 07/29/24 documented as of this encounter
--- OUTSIDE RECORDS SUMMARY | 2024-10-26 11:15 | XMS_ITS | Encounter Summary ---
Author Organization [facility] [employer] [facility] Address [address] [place] [address] Care Team Providers Care Renal Case Manager Name Role Phone Pritesh Chu MD Primary Care Provider [phone] Encounter Details Date Type Department Care Team (Late st Contact Info) Description 04/23/[address] [facility] Oncology and Hematology - [place] [address] [place] [address] [address] [place] [address] Christopher Meeks MD [address] [facility] [address] [place] [address] Malignant melanoma of lower extremity, [...] laterality documented in this encounter Care Teams Renal Case Manager Relationship Specialty Start Date End Date Pritesh Chu MD [address] [place] [address] PCP - General Family Practice 09/13/23 documented as of this encounter
--- OUTSIDE RECORDS SUMMARY | 2024-10-26 11:15 | XMS_ITS | Encounter Summary ---
Author Organization [facility] [employer] Address [address] [place] [address] Care Team Providers Care Dandy Operator Name Role Phone Pritesh Chu MD Primary Care Provider [phone] Encounter Details Date Type Department Care Team (Late st Contact Info) Description 04/05/2024 Orders Only [facility] Oncology and Hematology - [place] [address] [facility] [address] [place] [address] Christopher Meeks MD [address] [facility] [address] [place] [address] Social History Tobacco Use Types [...] on filedocumented in this encounter Care Teams Dandy Operator Relationship Specialty Start Date End Date Pritesh Chu MD [address] [place] [address] PCP - General Family Practice 09/13/23 documented as of this encounter
--- OUTSIDE RECORDS SUMMARY | 2024-10-26 11:15 | XMS_ITS | Encounter Summary ---
Author Organization [facility] [employer] [facility] Address [address] [place] [address] Care Team Providers Care Funeral Limousine Driver Name Role Phone Pritesh Chu MD Primary Care Provider [phone] Encounter Details Date Type Department Care Team (Late st Contact Info) Description 11/21/2023 Orders Only [facility] Oncology and Hematology - [place] [address] [place] [address] [address] [place] [address] Christopher Meeks MD [address] [facility] [address] [place] [address] Malignant melanoma of lower extremity, [...] documented in this encounter Care Teams Funeral Limousine Driver Relationship Specialty Start Date End Date Pritesh Chu MD [address] [place] [address] PCP - General Family Practice 09/13/23 documented as of this encounter
--- OUTSIDE RECORDS SUMMARY | 2024-10-26 11:15 | XMS_ITS | Encounter Summary ---
Author Organization [facility] Address [address] [place] [address] Care Team Providers Care Fabrication Inspector Name Role Phone Pritesh Chu MD Primary Care Provider [phone] Reason for Referral * Eval and Treat (Routine) - Closed Specialty Diagnoses / Procedures Referred By Contac t Referred To Contact Surgery Diagnoses Malignant melanoma of lower extremity, unspecified laterality Procedures [place] OFFICE/OUTPATIENT ESTABLISHED MOD MDM 30-39 MIN [place] OFFICE/OUTPATIENT NEW MODERATE MDM 45-59 MINUTES Christopher Meeks MD [address] [employer] [address] [place] [address] Maikol Alonso MD NO ADDRESS ON FILE Referral ID Status Reason Start Date Expiration Date V isits Requested Visits Authorized [id number] Closed [facility] CTS 09/13/2023 09/12/2024 1 1 N MARKETING ANALYST * Eval and Treat (Routine) - Closed Specialty Diagnoses / Procedures Referred By Contac t Referred To Contact Oncology Diagnoses Malignant melanoma of lower extremity, unspecified laterality Procedures [place] OFFICE/OUTPATIENT ESTABLISHED MOD MDM 30-39 MIN [place] OFFICE/OUTPATIENT NEW MODERATE MDM 45-59 MINUTES Christopher Meeks MD [address] [employer] [address] [place] [address] Referral ID Status Reason Start Date Expiration Date V isits Requested Visits Authorized [id number] Closed [facility] CTS 09/13/2023 09/13/2024 1 1 N MARKETING ANALYST Reason for Visit * Reason Comments Establish Care Encounter Details Date Type Department Care Team (Late st Contact Info) Description 09/13/2023 8:30 AM GREEN MARKETING ANALYST Office Visit [facility] Oncology and Hematology - [place] [address] [facility] [address] [place] [address] Christopher Meeks MD [address] [facility] [address] [place] [address] Malignant melanoma of lower extremity, [...] Comments Blood Pressure 144/91 09/13/2023 8:50 AM GREEN MARKETING ANALYST Pulse 88 09/13/2023 8:48 AM GREEN MARKETING ANALYST Temperature 36.5 ??C (97.7 ??F) 09/13/2023 8:48 AM CS T Respiratory Rate 10 09/13/2023 8:48 AM GREEN MARKETING ANALYST Oxygen Saturation 100% 09/13/2023 8:48 AM GREEN MARKETING ANALYST Inhaled Oxygen Concentration - - Weight 129.3 kg (285 lb) 09/13/2023 8:48 AM GREEN MARKETING ANALYST Height 170.2 cm (5' 7 ) 09/13/2023 8:48 AM GREEN MARKETING ANALYST Body Mass Index 44.64 09/13/2023 8:48 AM GREEN MARKETING ANALYST documented in this encounter Progress Notes * [...] dysuria; no frequency; no hesitancy; no hematuria FORMING OPERATOR: Musculosketetal: Patient did not mention bone pain; [...] of the total time spent counseling patient [id number]. CC:?Requesting Physician Jonel De MD Primary Care Physician Pritesh Chu MD N MARKETING ANALYST documented in this encounter Plan of Treatment [...] Primary documented in this encounter Care Teams Fabrication Inspector Relationship Specialty Start Date End Date Pritesh Chu MD [address] [place] [address] PCP - General Family Practice 09/13/23 documented as of this encounter
--- OUTSIDE RECORDS SUMMARY | 2024-10-26 11:15 | XMS_ITS | Encounter Summary ---
Author Organization [facility] Address [address] [place] [address] Care Team Providers Care Transmission And Coordination Engineer Name Role Phone Pritesh Chu MD Primary Care Provider [phone] Encounter Details Date Type Department Care Team [...] on filedocumented in this encounter Care Teams Transmission And Coordination Engineer Relationship Specialty Start Date End Date Pritesh Chu MD [address] [place] [address] PCP - General Family Practice 09/13/23 documented as of this encounter
--- OUTSIDE RECORDS SUMMARY | 2024-10-26 11:15 | XMS_ITS | Encounter Summary ---
Author Organization [facility] [employer] [facility] Address [address] [place] [address] Care Team Providers Care External Auditor Name Role Phone Pritesh Chu MD Primary Care Provider [phone] Encounter Details Date Type Department Care Team (Late st Contact Info) Description 06/04/2024 Orders Only [facility] Oncology and Hematology - [place] [address] [place] [address] Dr [address] [place] [address] Christopher Meeks MD [address] [facility] [address] [place] [address] Malignant melanoma of lower extremity, [...] laterality documented in this encounter Care Teams External Auditor Relationship Specialty Start Date End Date Pritesh Chu MD [address] [place] [address] PCP - General Family Practice 09/13/23 documented as of this encounter
--- OUTSIDE RECORDS SUMMARY | 2024-10-26 11:15 | XMS_ITS | Encounter Summary ---
Author Organization [facility] Address [address] [place] [address] Care Team Providers Care Applications Programmer Analyst Name Role Phone Pritesh Chu MD Primary Care Provider [phone] Encounter Details Date Type Department Care Team [...] on filedocumented in this encounter Care Teams Applications Programmer Analyst Relationship Specialty Start Date End Date Pritesh Chu MD [address] [place] [address] PCP - General Family Practice 09/13/23 documented as of this encounter
--- OUTSIDE RECORDS SUMMARY | 2024-10-26 11:15 | XMS_ITS | Encounter Summary ---
Author Organization [facility] [employer] [facility] Address [address] [place] [address] Care Team Providers Care Light Fixture Servicer Name Role Phone Pritesh Chu MD Primary Care Provider [phone] Encounter Details Date Type Department Care Team (Late st Contact Info) Description 09/20/2023 Abstract [facility] Oncology and Hematology - [place] [address] [place] [address] [address] [place] [address] Christopher Meeks MD [address] [facility] [address] [place] [address] Social History Tobacco Use Types [...] on filedocumented in this encounter Care Teams Light Fixture Servicer Relationship Specialty Start Date End Date Pritesh Chu MD [address] [place] [address] PCP - General Family Practice 09/13/23 documented as of this encounter
--- OUTSIDE RECORDS SUMMARY | 2024-10-26 11:15 | XMS_ITS | Encounter Summary ---
Author Organization [facility] [employer] [facility] Address [address] [place] [address] Care Team Providers Care Field Artillery Operations Specialist Name Role Phone Pritesh Chu MD Primary Care Provider [phone] Encounter Details Date Type Department Care Team (Late st Contact Info) Description 10/10/2023 Orders Only [facility] Oncology and Hematology - [place] [address] [place] [address] [address] [place] [address] Christopher Meeks MD [address] [facility] [address] [place] [address] Malignant melanoma of lower extremity, [...] Primary documented in this encounter Care Teams Field Artillery Operations Specialist Relationship Specialty Start Date End Date Pritesh Chu MD [address] [place] [address] PCP - General Family Practice 09/13/23 documented as of this encounter
--- OUTSIDE RECORDS SUMMARY | 2024-10-26 11:15 | XMS_ITS | Encounter Summary ---
Author Organization [facility] Address [address] [place] [address] Care Team Providers Care Physical Instructor Name Role Phone Pritesh Chu MD Primary Care Provider [phone] Encounter Details Date Type Department Care Team [...] on filedocumented in this encounter Care Teams Physical Instructor Relationship Specialty Start Date End Date Pritesh Chu MD [address] [place] [address] PCP - General Family Practice 09/13/23 documented as of this encounter
--- OUTSIDE RECORDS SUMMARY | 2024-10-26 11:15 | XMS_ITS | Encounter Summary ---
Author Organization [facility] [employer] [facility] Address [address] [place] [address] Care Team Providers Care Iron Molder Helper Name Role Phone Pritesh Chu MD Primary Care Provider [phone] Encounter Details Date Type Department Care Team (Late st Contact Info) Description 04/09/[address] [facility] Oncology and Hematology - [place] [address] [facility] [address] [place] [address] Christopher Meeks MD [address] [facility] [address] [place] [address] Malignant melanoma of lower extremity, [...] laterality documented in this encounter Care Teams Iron Molder Helper Relationship Specialty Start Date End Date Pritesh Chu MD [address] [place] [address] PCP - General Family Practice 09/13/23 documented as of this encounter
--- OUTSIDE RECORDS SUMMARY | 2024-10-26 11:15 | XMS_ITS | Encounter Summary ---
Author Organization [facility] [employer] [facility] Address [address] [place] [address] Care Team Providers Care Health Technician Name Role Phone Pritesh Chu MD Primary Care Provider [phone] Encounter Details Date Type Department Care Team (Late st Contact Info) Description 09/21/2023 Orders Only [facility] Oncology and Hematology - [place] [address] [facility] [address] [place] [address] Christopher Meeks MD [address] [facility] [address] [place] [address] Social History Tobacco Use Types [...] B SURFACE ANTIGEN Routine 09/20/2023 9:22 AM ULTRASOUND TECHNOL COMPREHENSIVE METABOLIC PANEL Routine 09/20/2023 8:49 AM ULTRASOUND TECHNOL CBC WITH DIFFERENTIAL Routine 09/20/2023 8:37 AM ULTRASOUND TECHNOL documented in this encounter Results * HEPATITIS B SURFACE ANTIGEN (09/20/2023 9:22 AM ULTRASOUND TECHNOL) Blood Christopher Meeks MD CHEMISTRY ORDERABLES * COMPREHENSIVE METABOLIC PANEL (09/20/2023 8:49 AM ULTRASOUND TECHNOL) Blood Christopher Meeks MD CHEMISTRY ORDERABLES * CBC WITH DIFFERENTIAL (09/20/2023 8:37 AM ULTRASOUND TECHNOL) Blood Christopher Meeks MD HEMATOLOGY ORDERABLE S documented in this encounter Visit Diagnoses Not on filedocumented in this encounter Care Teams Health Technician Relationship Specialty Start Date End Date Pritesh Chu MD [address] [place] [address] PCP - General Family Practice 09/13/23 documented as of this encounter
--- OUTSIDE RECORDS SUMMARY | 2024-10-26 11:15 | XMS_ITS | Encounter Summary ---
Author Organization [facility] Address [address] [place] [address] Care Team Providers Care Computer Peripheral Equipment Operator Name Role Phone Pritesh Chu MD Primary Care Provider [phone] Encounter Details Date Type Department Care Team [...] on filedocumented in this encounter Care Teams Computer Peripheral Equipment Operator Relationship Specialty Start Date End Date Pritesh Chu MD [address] [place] [address] PCP - General Family Practice 09/13/23 documented as of this encounter
--- OUTSIDE RECORDS SUMMARY | 2024-10-26 11:15 | XMS_ITS | Encounter Summary ---
Author Organization [facility] [employer] [facility] Address [address] [place] [address] Care Team Providers Care Director Investment Banking Name Role Phone Pritesh Chu MD Primary Care Provider [phone] Encounter Details Date Type Department Care Team (Late st Contact Info) Description 12/19/2023 Orders Only [facility] Oncology and Hematology - [place] [address] [place] [address] [address] [place] [address] Christopher Meeks MD [address] [facility] [address] [place] [address] Malignant melanoma of lower extremity, [...] laterality documented in this encounter Care Teams Director Investment Banking Relationship Specialty Start Date End Date Pritesh Chu MD [address] [place] [address] PCP - General Family Practice 09/13/23 documented as of this encounter
--- OUTSIDE RECORDS SUMMARY | 2024-10-26 11:15 | XMS_ITS | Encounter Summary ---
Author Organization [facility] [employer] Address [address] [place] [address] Care Team Providers Care Creative Services Producer Name Role Phone Pritesh Chu MD Primary Care Provider [phone] Encounter Details Date Type Department Care Team (Late st Contact Info) Description 09/28/2023 Orders Only [facility] Oncology and Hematology - [place] [address] [facility] [address] [place] [address] Christopher Meeks MD [address] [facility] [address] [place] [address] Social History Tobacco Use Types [...] JAIME DENNIS THG Routine 09/27/2023 2:52 PM CONSTRUCTION ENGINEERING MANAGER documented in this encounter Results * PET TUMOR IMG SKB MDTH (09/27/2023 2:52 PM CONSTRUCTION ENGINEERING MANAGER) Anatomical Region Laterality Modality Other Christopher Meeks MD PE ORDERABLES documented in this encounter Visit Diagnoses Not on filedocumented in this encounter Care Teams Creative Services Producer Relationship Specialty Start Date End Date Pritesh Chu MD [address] [place] [address] PCP - General Family Practice 09/13/23 documented as of this encounter
--- OUTSIDE RECORDS SUMMARY | 2024-10-26 11:15 | XMS_ITS | Encounter Summary ---
Author Organization [facility] [employer] [facility] Address [address] [place] [address] Care Team Providers Care Appliance Installer Name Role Phone Pritesh Chu MD Primary Care Provider Encounter Details Date Type Department Care Team (Late st Contact Info) Description 03/26/2024 Orders Only [facility] Oncology and Hematology - [place] [address] [place] [address] Dr [address] [place] [address] Christopher Meeks MD [address] [facility] [address] [place] [address] Malignant melanoma of lower extremity, [...] laterality documented in this encounter Care Teams Appliance Installer Relationship Specialty Start Date End Date Pritesh Chu MD [address] [place] [address] PCP - General Family Practice 09/13/23 documented as of this encounter
--- OUTSIDE RECORDS SUMMARY | 2024-10-26 11:15 | XMS_ITS | Encounter Summary ---
Author Organization [facility] Address [address] [place] [address] Care Team Providers Care Ticket Sorter Name Role Phone Pritesh Chu MD Primary Care Provider [phone] Encounter Details Date Type Department Care Team [...] on filedocumented in this encounter Care Teams Ticket Sorter Relationship Specialty Start Date End Date Pritesh Chu MD [address] [place] [address] PCP - General Family Practice 09/13/23 documented as of this encounter
--- OUTSIDE RECORDS SUMMARY | 2024-10-26 11:15 | XMS_ITS | Encounter Summary ---
Author Organization [facility] [employer] [facility] Address [address] [place] [address] Care Team Providers Care Occupational Therapy Aide Name Role Phone Prtiesh Chu MD Primary Care Provider [phone] Encounter Details Date Type Department Care Team (Late st Contact Info) Description 09/20/2023 Orders Only [facility] Oncology and Hematology - [place] [address] [facility] [address] [place] [address] Christopher Meeks MD [address] [facility] [address] [place] [address] Malignant melanoma of lower extremity, [...] test documented in this encounter Care Teams Occupational Therapy Aide Relationship Specialty Start Date End Date Pritesh Chu MD [address] [place] [address] PCP - General Family Practice 09/13/23 documented as of this encounter
--- OUTSIDE RECORDS SUMMARY | 2024-10-26 11:15 | XMS_ITS | Encounter Summary ---
Author Organization [facility] Address [address] [place] [address] Care Team Providers Care Mop Man Name Role Phone Pritesh Chu MD Primary Care Provider [phone] Encounter Details Date Type Department Care Team [...] on filedocumented in this encounter Care Teams Mop Man Relationship Specialty Start Date End Date Pritesh Chu MD [address] [place] [address] PCP - General Family Practice 09/13/23 documented as of this encounter
--- OUTSIDE RECORDS SUMMARY | 2024-10-26 11:15 | XMS_ITS | Encounter Summary ---
Author Organization [facility] [employer] [facility] Address [address] [place] [address] Care Team Providers Care Naphthalene Operator Helper Name Role Phone Pritesh Chu MD Primary Care Provider [phone] Encounter Details Date Type Department Care Team (Late st Contact Info) Description 01/02/2024 Orders Only [facility] Oncology and Hematology - [place] [address] [place] [address] Dr [address] [place] [address] Christopher Meeks MD [address] [facility] [address] [place] [address] Malignant melanoma of lower extremity, [...] laterality documented in this encounter Care Teams Naphthalene Operator Helper Relationship Specialty Start Date End Date Pritesh Chu MD [address] [place] [address] PCP - General Family Practice 09/13/23 documented as of this encounter
--- OUTSIDE RECORDS SUMMARY | 2024-10-26 11:15 | XMS_ITS | Encounter Summary ---
Author Organization [facility] Address [address] [place] [address] Care Team Providers Care Electrician Master Name Role Phone Pritesh Chu MD Primary Care Provider [phone] Encounter Details Date Type Department Care Team [...] on filedocumented in this encounter Care Teams Electrician Master Relationship Specialty Start Date End Date Pritesh Chu MD [address] [place] [address] PCP - General Family Practice 09/13/23 documented as of this encounter
--- OUTSIDE RECORDS SUMMARY | 2024-10-26 11:15 | XMS_ITS | Clinical Summary ---
Author Organization [facility] Facility Address [address] [place] [address] Care Team Providers Care Railroad Passenger Agent Name Role Phone Pritesh Chu MD Primary Care Provider [phone] Encounters Date Type Department Care Team Description 08/23/2024 Travel 08/08/2024 Documentation Only [facility], [address] [phone] Urbano Quiñonez MD 08/07/2024 Patient Outreach - TCM [facility], [address] [phone] Letty Garcia 08/06/2024 Patient Outreach - TCM [facility], [address] [phone] Letty Garcia 08/02/2024 Patient Outreach - TCM [facility], [address] [address] Letty Garcia 08/01/2024 Documentation Only [facility], [address] [phone] Urbano Quiñonez MD 08/01/2024 Patient Outreach - TCM [facility], [address] [address] Letty Garcia 07/31/2024 Documentation Only [facility], [place] [id number] [address] Urbano Quiñonez MD from Last 3 Months [...] 8.7 8.7 - 10.7 mg/dL eGFR Non-Afr Belarusian 60 Total Bilirubin 0.50 MG/DL ALT (SGPT) 107(H) U/L AST (SGOT) 27 U/L Alkaline Phosphatase 56 U/L 08/24/2024 Historical Provider LAB BLOOD ORDERABLES Susan l Result from Last [address] [place] [address] MEDIC (FORMERLY [employer] ) ([id number]) Care Teams Railroad Passenger Agent Relationship Specialty Start Date End Date Pritesh Chu MD [address] [place] [address] PCP - General Family Medicine 07/29/24
--- OUTSIDE RECORDS SUMMARY | 2024-10-26 11:15 | XMS_ITS | Encounter Summary ---
Author Organization [facility] [employer] [facility] Address [address] [place] [address] Care Team Providers Care Sliver Lap Machine Tender Name Role Phone Pritesh Chu MD Primary Care Provider Encounter Details Date Type Department Care Team (Late st Contact Info) Description 12/21/2023 Abstract [facility] Oncology and Hematology - [place] [address] [place] [address] [address] [place] [address] Christopher Meeks MD [address] [facility] [address] [place] [address] Social History Tobacco Use Types [...] on filedocumented in this encounter Care Teams Sliver Lap Machine Tender Relationship Specialty Start Date End Date Pritesh Chu MD [address] [place] [address] PCP - General Family Practice 09/13/23 documented as of this encounter
--- OUTSIDE RECORDS SUMMARY | 2024-10-26 11:15 | XMS_ITS | Encounter Summary ---
Author Organization [facility] Facility Address [address] [place] [address] Care Team Providers Care Barrel Charrer Helper Name Role Phone Pritesh Chu MD [...] on filedocumented in this encounter Care Teams Barrel Charrer Helper Relationship Specialty Start Date End Date Pritesh Chu MD [address] [place] [address] PCP - General Family Medicine 07/29/24 documented as of this encounter
--- OUTSIDE RECORDS SUMMARY | 2024-10-26 11:15 | XMS_ITS | Encounter Summary ---
Author Organization [facility] [employer] [facility] , [facility] Address [address] [place] [address] Phone Care Team Providers Care Container Finisher Name Role Phone Pritesh Chu MD Primary Care Provider [phone] Encounter Details Date Type Department Care Team (Late st Contact Info) Description 08/06/2024 Patient Outreach - TCM [place] [facility] [address] [facility] [address] [place] [address] Letty Garcia [address] [place] [address] Social History Tobacco Use Types [...] on filedocumented in this encounter Care Teams Container Finisher Relationship Specialty Start Date End Date Pritesh Chu MD [address] [place] [address] PCP - General Family Medicine 07/29/24 documented as of this encounter
--- OUTSIDE RECORDS SUMMARY | 2024-10-26 11:15 | XMS_ITS | Encounter Summary ---
Author Organization [facility] [employer] [facility] Address [address] [place] [address] Care Team Providers Care Surveying Technician Name Role Phone Pritesh Chu MD Primary Care Provider Encounter Details Date Type Department Care Team (Late st Contact Info) Description 04/04/2024 Orders Only [facility] Oncology and Hematology - [place] [address] [facility] [address] [place] [address] Christopher Meeks MD [address] [facility] [address] [place] [address] Social History Tobacco Use Types [...] on filedocumented in this encounter Care Teams Surveying Technician Relationship Specialty Start Date End Date Pritesh Chu MD [address] [place] [address] PCP - General Family Practice 09/13/23 documented as of this encounter
--- OUTSIDE RECORDS SUMMARY | 2024-10-26 11:15 | XMS_ITS | Encounter Summary ---
Author Organization [facility] [employer] [facility] Address [address] [place] [address] Care Team Providers Care Pm Technician Name Role Phone Pritesh Chu MD Primary Care Provider [phone] Reason for Visit * Reason Onset Date Comments PET SCAN APPT 03/21/2024 PET Scan resched uled for 04/03/24 @2pm (130pm arrival) 6hr fast No coffee, no caffine, no sugar 24hrs prior Encounter Details Date Type Department Care Team (Late st Contact Info) Description 03/21/2024 Telephone [facility] Oncology and Hematology - [place] [address] [place] [address] [facility] [address] [place] [address] Christopher Meeks MD [address] [facility] [address] [place] [address] PET SCAN APPT (PET Scan [...] on filedocumented in this encounter Care Teams Pm Technician Relationship Specialty Start Date End Date Pritesh Chu MD [address] [place] [address] PCP - General Family Practice 09/13/23 documented as of this encounter
--- OUTSIDE RECORDS SUMMARY | 2024-10-26 11:15 | XMS_ITS | Encounter Summary ---
Author Organization [facility] [employer] [facility] Address [address] [place] [address] Care Team Providers Care Horologist Apprentice Name Role Phone Pritesh Chu MD Primary Care Provider Encounter Details Date Type Department Care Team (Late st Contact Info) Description 02/13/2024 Orders Only [facility] Oncology and Hematology - [place] [address] [place] [address] [address] [place] [address] Christopher Meeks MD [address] [facility] [address] [place] [address] Malignant melanoma of lower extremity, [...] laterality documented in this encounter Care Teams Horologist Apprentice Relationship Specialty Start Date End Date Pritesh Chu MD [address] [place] [address] PCP - General Family Practice 09/13/23 documented as of this encounter
--- OUTSIDE RECORDS SUMMARY | 2024-10-26 11:15 | XMS_ITS | Encounter Summary ---
Author Organization [facility] [employer] [facility] Address [address] [place] [address] Care Team Providers Care Human Resources Talent Manager Name Role Phone Pritesh Chu MD Primary Care Provider [phone] Encounter Details Date Type Department Care Team (Late st Contact Info) Description 01/30/2024 Orders Only [facility] Oncology and Hematology - [place] [address] [place] [address] [address] [place] [address] Christopher Meeks MD [address] [facility] [address] [place] [address] Malignant melanoma of lower extremity, [...] laterality documented in this encounter Care Teams Human Resources Talent Manager Relationship Specialty Start Date End Date Pritesh Chu MD [address] [place] [address] PCP - General Family Practice 09/13/23 documented as of this encounter
--- OUTSIDE RECORDS SUMMARY | 2024-10-26 11:15 | XMS_ITS | Encounter Summary ---
Author Organization [facility] [employer] [facility] Address [address] [place] [address] Care Team Providers Care Bsa/Aml Compliance Officer Name Role Phone Pritesh hCu MD Primary Care Provider [phone] Encounter Details Date Type Department Care Team (Late st Contact Info) Description 05/21/2024 Orders Only [facility] Oncology and Hematology - [place] [address] [place] [address] [address] [place] [address] Christopher Meeks MD [address] [facility] [address] [place] [address] Malignant melanoma of lower extremity, [...] laterality documented in this encounter Care Teams Bsa/Aml Compliance Officer Relationship Specialty Start Date End Date Pritesh Chu MD [address] [place] [address] PCP - General Family Practice 09/13/23 documented as of this encounter
--- OUTSIDE RECORDS SUMMARY | 2024-10-26 11:15 | XMS_ITS | Encounter Summary ---
Author Organization [facility] [employer] [facility] Address [address] [place] [address] Care Team Providers Care Electrical Estimator Name Role Phone Pritesh Chu MD Primary Care Provider [phone] Encounter Details Date Type Department Care Team (Late st Contact Info) Description 11/10/2023 Orders Only [facility] Oncology and Hematology - [place] [address] [facility] [address] [place] [address] Christopher Meeks MD [address] [facility] [address] [place] [address] Malignant melanoma of lower extremity, [...] Primary documented in this encounter Care Teams Electrical Estimator Relationship Specialty Start Date End Date Pritesh Chu MD [address] [place] [address] PCP - General Family Practice 09/13/23 documented as of this encounter
--- OUTSIDE RECORDS SUMMARY | 2024-10-26 11:15 | XMS_ITS | Encounter Summary ---
Author Organization [facility] [employer] [facility] Address [address] [place] [address] Care Team Providers Care Kitchen And Counter Worker Name Role Phone Pritesh Chu MD Primary Care Provider [phone] Encounter Details Date Type Department Care Team (Late st Contact Info) Description 03/06/2024 Orders Only [facility] Oncology and Hematology - [place] [address] [facility] [address] [place] [address] Christopher Meeks MD [address] [facility] [address] [place] [address] Social History Tobacco Use Types [...] on filedocumented in this encounter Care Teams Kitchen And Counter Worker Relationship Specialty Start Date End Date Pritesh Chu MD [address] [place] [address] PCP - General Family Practice 09/13/23 documented as of this encounter
--- OUTSIDE RECORDS SUMMARY | 2024-10-26 11:15 | XMS_ITS | Encounter Summary ---
Author Organization [facility] [employer] [facility] Address [address] [place] [address] Care Team Providers Care Evaluation Manager Name Role Phone Pritesh Chu MD Primary Care Provider [phone] Encounter Details Date Type Department Care Team (Late st Contact Info) Description 01/16/2024 Orders Only [facility] Oncology and Hematology - [place] [address] [place] [address] [address] [place] [address] Christopher Meeks MD [address] [facility] [address] [place] [address] Malignant melanoma of lower extremity, [...] laterality documented in this encounter Care Teams Evaluation Manager Relationship Specialty Start Date End Date Pritesh Chu MD [address] [place] [address] PCP - General Family Practice 09/13/23 documented as of this encounter
--- OUTSIDE RECORDS SUMMARY | 2024-10-26 11:15 | XMS_ITS | Encounter Summary ---
Author Organization [facility] Address [address] [place] [address] Care Team Providers Care Forest Fire Equipment Operator Name Role Phone Pritesh Chu MD Primary Care Provider [phone] Encounter Details Date Type Department Care Team [...] on filedocumented in this encounter Care Teams Forest Fire Equipment Operator Relationship Specialty Start Date End Date Pritesh Chu MD [address] [place] [address] PCP - General Family Practice 09/13/23 documented as of this encounter
--- OUTSIDE RECORDS SUMMARY | 2024-10-26 11:15 | XMS_ITS | Encounter Summary ---
Author Organization [facility] Address [address] [place] [address] Care Team Providers Care Cash Processing Specialist Name Role Phone Pritesh Chu MD Primary Care Provider [phone] Encounter Details Date Type Department Care Team [...] on filedocumented in this encounter Care Teams Cash Processing Specialist Relationship Specialty Start Date End Date Pritesh Chu MD [address] [place] [address] PCP - General Family Practice 09/13/23 documented as of this encounter
--- OUTSIDE RECORDS SUMMARY | 2024-10-26 11:15 | XMS_ITS | Encounter Summary ---
Author Organization [facility] [employer] [facility] Address [address] [place] [address] Care Team Providers Care Supervisor Pumping Name Role Phone Pritesh Chu MD Primary Care Provider [phone] Encounter Details Date Type Department Care Team (Late st Contact Info) Description 06/18/2024 Orders Only [facility] Oncology and Hematology - [place] [address] [place] [address] [address] [place] [address] Christopher Meeks MD [address] [facility] [address] [place] [address] Malignant melanoma of lower extremity, [...] laterality documented in this encounter Care Teams Supervisor Pumping Relationship Specialty Start Date End Date Pritesh Chu MD [address] [place] [address] PCP - General Family Practice 09/13/23 documented as of this encounter
== END 2024-10-21 20:53 | disposition short-term general hospital (02) ==
PROVIDERS: Emergency Provider Emergency Medicine; PCP Family Medicine
DX: K85.90 Acute pancreatitis without necrosis or infection, unspecified (principal); E03.9 Hypothyroidism, unspecified; K21.9 Gastro-esophageal reflux disease without esophagitis; F32.A Depression, unspecified; Z87.891 Personal history of nicotine dependence
CPT/HCPCS: 36415; 74177; 80053; 81003; 83690; 84703; 85025; 96361; 96374; 96375; 96376; 99285; J1171; J2270; J2405; J7030; Q9967

== ENCOUNTER 2024-10-21 21:38 | Inpatient (IN) | payer OTHER, MEDICAID, SELFPAY ==
--- NOTE | ~2024-10-21 | MR_ITS ---
EXAMINATION: MR MRCP wo/w con/w 3D wo ind DATE: 10/22/2024 14:51 INDICATION: Pancreatitis. Dilated pancreatic duct. TECHNIQUE: Magnetic resonance imaging (MRI) of the abdomen was performed without intravenous contrast . Sequences included coronal T2-weighted FS FSE, coronal T2-weighted FSE, axial T1-weighted LAVA, cor onal FS FIESTA, axial dual-echo T1-weighted SPGR, coronal lava-FLEX, sagittal T2-weighted FSE, axial T2-weighted FSE, and axial DWI. Thick-slab T2-weighted FSE images were obtained for magnetic resonanc e cholangiopancreatography (MRCP). Maximum intensity projection 3-D reconstructions of the volumetric data were created by the technologist. Postcontrast sequences included coronal LAVA-flex and time co urse of axial T1-weighted LAVA. COMPARISON: CT abdomen and pelvis 10/21/2024 FINDINGS: ABDOMEN MRI: There are small pleural effusions. There is diffuse hepatic steatosis. The liver, gallbl adder, spleen, adrenal glands, and right kidney are normal. There is a 5 mm cyst in left kidney. The pancreatic duct is mildly dilated. There is fat stranding around the pancreas. There are no dilated l oops of bowel. There are no pathologically enlarged lymph nodes. There is no free intraperitoneal flu id. ABDOMEN MRCP: The common duct is normal and measures 6 mm. No choledocholithiasis. IMPRESSION: 1. Acute interstitial pancreatitis. 2. No choledocholithiasis. 3. Small pleural effusions. Reviewed, dictated and finalized at location A. STAPLER
[2024-10-21 21:31] VITALS: BMI 43.1
[2024-10-21 21:41] VITALS: BP 146/100; PULSE 78; RESP 16; TEMP 36.5; O2SAT 98
--- NOTE | 2024-10-21 21:41 | ADMGEN ---
This patient, Dayanara Hilton, was admitted to Medical Room 251-01. Patient/family oriented to hospital policies and general routines including ID bracelet, bed and alarms, visiting hours, pain management, procedures, bathroom and other care routines, personal items, smoking policy, room service/diet, and visiting hours. Information on how to activate the Rapid Response Team has been discussed. Patient/Family are encouraged to report perceived risks to care and to ask questions if they do not understand what they are told or what they should do.
--- NOTE | 2024-10-21 21:45 | P.HP_ITS ---
H&P: HPI History of Present Illness Date/Time: 10/21/24 21:45 Chief Complaint: Abdominal pain. Narrative: This is a pleasant 24-year-old female with hypothyroidism, gastroesophageal reflux disease, depression, and stage III melanoma arising in the left foot for which she has recently been started on Mektovi and Braftovi per Dr. Finley at [facility] who presented to the emergency department at the [facility] earlier today for evaluation of abdominal pain. She gives a 1 week history of upper abdominal pain this stripe does sharp and stabbing in nature, occasionally radiating through to the back. Initially the pain seemed to occur after meals however it has been pretty constant for the last couple of days. She has also developed nausea and reports having several episodes of nonbloody and nonbilious emesis. She denies fever, chills, sweats, hematemesis, bloating, belching, diarrhea, melena, dysuria, hematuria, chest pain, and shortness of breath. She denies known history of gallbladder disease or gallstones and she has never had pancreatitis or peptic ulcers. It should be noted that she was started on Mektovi and Braftovi last , several days after her symptoms began. In the ED: Vital signs were stable. Labs are significant for WBC count of 8.2, hemoglobin 13.0, sodium 139, potassium 3.5, BUN 20, creatinine 0.91, total bilirubin 0.5, AST 12, ALT 32, alkaline phosphatase 45, lipase 1020. Urinalysis was unremarkable. CT of the abdomen and pelvis showed acute interstitial pancreatitis, pancreatic duct dilatation without obstructing stone or mass, a sm all pericardial effusion, hepatomegaly, mild urinary bladder wall thickening, and left inguinal lymphadenopathy. She received IV fluids, antiemetics, and analgesics. The patient requested to be transferred to [facility] however they declined and she is being directly admitted to the medical floor here at [place] for further treatment and evaluation. Review of Systems Review of Systems: 12 systems were reviewed and are negativ e except for as per HPI. [facility] Past Medical History Medical History Gastroesophageal reflux disease Metastatic melanoma Hypothyroidism Suppression, menstruation BMI 40.0-44.9, adult Depression Surgical History Surgical History (Updated 10/21/24 @ 22:54 by Lien Casiano PA-C) History of skin graft History of melanoma excision History of insertion of tunneled central venous catheter (CVC) with port History of appendectomy Family History Family History Father Diverticulitis Mother No problems noted. Sibling No problems noted. Father Malignant neoplasm of prostate Other Diabetes mellitus Heart disease Social History Social History Social History: Surrogate medical decision maker: Lyndsay Hesster, mother. Code status: Full code. Smoking packs per day: 0.5 Smoking cigarettes per day: 10.0 Years smoked: 7 Smoking pack-years: 3.50 Smoking status: Former smoker Second hand tobacco smoke exposure: Yes Alcohol intake: current Alcohol use details: Rare alcohol use in moderation Substance use: former Substance use type: marijuana Do You Feel Safe in your Home?: Yes Lack of Transportation: No Lack of Food: Never True Current Housing: I Have Housing Concerned About Future Housing: No Difficulty Paying Gas/Electric Bills: No Difficulty Paying for Meds: No Currently Unemployed: No Education: High School Diploma/GED Difficulty w/ Childcare or Family Care: No Living arrangements: with family Additional living arrangements comments: Saez Occupation/Education: occupation Additional occupation/education comments: [employer] Spiritual care concerns: No Meds Home Medications and Allergies Home Medications ?Medication ?Instructions ?Recorded ?Confirmed ?Type binimetinib 15 mg tablet (Mektovi) 45 mg PO BID 10/21/24 10/21/24 History citalopram 10 mg tablet 10 mg PO DAILY 10/21/24 10/21/24 History citalopram 10 mg tablet (Celexa) 10 mg PO DAILY 10/21/24 10/21/24 History encorafenib 75 mg capsule 450 mg PO DAILY 10/21/24 10/21/24 History (Braftovi) levothyroxine 100 mcg tablet 100 mcg PO DAILY 10/21/24 10/21/24 History norethindrone 1 mg-ethinyl 1 tablet PO DAILY 10/21/24 10/21/24 History estradiol 20 mcg (24)-iron 75 mg (4) tablet (Aurovela 24 Fe) omeprazole 40 mg capsule,delayed 40 mg PO DAILY 10/21/24 10/21/24 History release potassium chloride 20 mEq 20 meq PO DAILY 10/21/24 10/21/24 History tablet,extended release(part/cryst) (Klor-Con M) prednisone 20 mg tablet 100 mg PO DAILY 10/21/24 10/21/24 History Allergies Allergy/AdvReac Type Severity Reaction Status Date / Time No Known Allergies Allergy Verified 10/21/24 21:32 Vital Signs Vital Signs - 24 hr 10/21/24 21:41 Temperature 97.7 F Pulse Rate 78 Respiratory Rate 16 Blood Pressure 146/100 H Pulse Oximetry 98 Exam Narrative: General: Mildly ill-appearing female supine in bed. Weight: 121.3 kg. BMI: 4 3.2. HEENT: PERRL, EOMI. Sclera anicteric. Tacky mucous membranes. Neck: Supple. Respiratory: Lungs are clear to auscultation bilaterally. Cardiovascular: Regular rate and rhythm with S1-S2. Gastrointestinal: Abdomen is soft, obese, and nondistended with positive bowel sounds. She is tender to palpation throughout the upper abdomen, more so in the epigastric region and left upper quadrant. No guarding or rebound tenderness. Skin: Warm and dry. Generalized pallor. There is a hyperpigmented patch on the dorsum of the left foot with changes of prior skin graft and a raised papules and nodules. Extremities: No cyanosis, clubbing, or edema. Radial and pedal pulses intact. Neurological: Alert. Cranial nerves 2-12 are grossly intact. No gross focal deficits to casual conversation. Psychiatric: Pleasant and cooperative with normal mood and affect. Judgment and insight intact. H&P: Results Labs Labs: 10/21/24 Range/Units 15:18 WBC 8.2 (4.8-10.8) K/mm3 RBC 4.05 L (4.20-5.40) M/mm3 Hgb 13.0 (12.0-15.0) g/dL Hct 37.6 (35.0-49.0) % MCV 92.8 (78.0-102.0) fL MCH 32.1 H (27.0-31.0) pg MCHC 34.6 (32-36) g/dL RDW 12.9 (11.6-14.4) % Plt Count 248 (150-420) K/mm3 MPV 9.6 (9.2-11.8) fl Immature Gran % (Auto) 0.2 H (0.0-0.0) % Neut % (Auto) 78.0 H (50.0-70.0) % Lymph % (Auto) 11.8 L (18.0-42.0) % Heard % (Auto) 9.5 (2.0-11.0) % Eos % (Auto) 0.5 L (1.0-6.0) % Baso % (Auto) 0.0 (0.0-1.0) % Lymph # (Auto) 0.96 L (1.10-4.50) K/mm3 Heard # (Auto) 0.78 (0.10-0.90) K/mm3 Eos # (Auto) 0.04 (0.02-0.50) K/mm3 Baso # (Auto) 0.00 (0.00-0.10) K/mm3 Abs Immat Gran (auto) 0.02 H (0.00-0.00) K/mm3 Absolute Neuts (auto) 6.37 (1.70-7.20) K/mm3 Absolute Nucleated RBC 0.00 (0.00-0.00) K/mm3 Nucleated RBC % 0.0 (0-0.0) % Sodium 139 (136-145) mmol/L Potassium 3.5 (3.5-5.1) mmol/L Chloride 101 (98-108) mmol/L Carbon Dioxide 27 (21-32) mmol/L Anion Gap 11 (4-12) mmol/L BUN 20 H (7-18) mg/dL Creatinine 0.91 (0.55-1.02) mg/dL Estim Creat Clear Calc 112 ml/min Estimated GFR > 60 (59 - ) Glucose 114 H (70-99) mg/dL Calculated Osmolality 291 (285-295) mOsm/kg Calcium 9.3 (8.5-10.1) mg/dL Total Bilirubin 0.5 (0.00-1.00) mg/dL AST 12 L (15-37) U/L ALT 32 (14-59) U/L Alkaline Phosphatase 45 L (46-116) U/L Total Protein 6.9 (6.4-8.2) g/dL Albumin 3.6 (3.4-5.0) g/dL Lipase 1020 H (16-77) U/L Serum HCG, Qual Negative Urine Color Light yellow (Yellow) Urine Appearance Clear (Clear) Urine pH 6.0 (5.0-8.0) Ur Specific [place] 1.020 (1.010-1.020) Urine Protein Negative (Negative) Urine Glucose (UA) Negative (Negative) Urine Ketones Negative (Negative) Ur Blood (Man) Negative (Negative) Urine Nitrate Negative (Negative) Urine Bilirubin Negative (Negative) Urine Urobilinogen 0.2 (0.2-1.0) mg/dL Leukocyte Esterase Rfl Negative (Negative) ETELVINA/UL Imaging CT scan - abdomen: Radiologist's impression: Small pericardial effusion. Hepatomegaly. Acute interstitial pancreatitis. Pancreatic duct dilation, without obstructing stone or mass detected. Mild urinary bladder wall thickening, may reflect cystitis, correlate with urinalysis. Left inguinal lymphadenopathy. Assessment and Plan Assessment and plan (1) Pancreatitis: Code(s): K85.90 - Acute pancreatitis without necrosis or infection, unspecified Status: Acute (2) Metastatic melanoma: Code(s): C43.9 - Malignant melanoma of skin, unspecified Status: Acute (3) Hypothyroidism: Code(s): E03.9 - Hypothyroidism, unspecified Status: Acute (4) Gastroesophageal reflux disease: Code(s): K21.9 - Gastro-esophageal reflux disease without esophagitis Status: Acute (5) Depression: Code(s): F32.A - Depression, unspecified Status: Acute Plan The patient is being directly admitted to the medical floor from an outside emergency department for further treatment and evaluation after she was found to have pancreatitis as detailed in HPI. Labs, imaging, EKG, and all reports were personally reviewed. Etiology of the pancreatitis is not entirely clear. She was started on Mektovi and Braftovi on and pancreatitis is listed as an adverse effect of these drugs however her symptoms began several days prior to starting those medications. Check triglyceride level as it was a bit elevated a couple of years ago. Pancreatic duct is enlarged on imaging showed no reports of obstruction per radiologist and her LFTs are within normal limits. GI has been consulted for their opinion. [facility] however attempts will be made tomorrow to get in touch with Dr. Finley, her oncologist, for further instructions regarding her medications. Continue supportive care including bowel rest and IV fluid rehydration. Analgesics and antiemetics are available as needed. Vital signs were reviewed and they are stable. Her home medications will be reviewed and resumed as appropriate. Findings and treatment plan were discussed with the patient. Questions were solicited and answered to satisfaction. The patient's medical management will be taken over by the hospitalist team in a.m. Quality VTE Prophylaxis VTE prophylaxis: pharmacologic ordered The patient has been admitted under observation status. Hospitalist [facility] Advance Care Plan I have confirmed that the patient's Advanced Care Plan is present, code status is documented, or surrogate decision maker is listed in patient medical record.: Yes Medication Reconciliation I have utilized all available resources to obtain, update and review the patients current medications (includes all prescriptions, OTC, herbals, cannabis, and nutritional supplements).: Yes
[2024-10-22] VITALS: BP 136/72; PULSE 72; RESP 14; TEMP 36.7; O2SAT 100
[2024-10-22] MEDS: LACTATED RINGERS 1,000 ML 150 ML IV CONT ×3 (01:24→17:20)
[2024-10-22] MEDS: MORPHINE SULFATE (*CRX) 4 MG/ML INJ IV PUSH (01:35)
[2024-10-22 05:31] VITALS: BP 144/104; PULSE 90; RESP 14; TEMP 36.4; O2SAT 100
[2024-10-22 06:26] LABS: Hemoglobin 13.6 g/dL (12.0-15.0); Mean Corpuscular Hemoglobin 32.9 pg (26-34); Mean Corpuscular Volume 96.9 fl (80-100); Mean Platelet Volume 9.6 fl (7.4-10.4); Platelet Count Result 285 k/mm3 (150-375); Red Blood Count 4.13 M/mm3 (4.2-5.4); Red Cell Distribution Width 13.1 % (11.5-14.5); White Blood Count 6.3 K/mm3 (4.5-10.0)
[2024-10-22] MEDS: HYDROcodone/acetaminophen (*CRX) 5-325 MG TABLET 1 TAB PO (06:35)
[2024-10-22 06:36] LABS: Alanine Aminotransferase 28 U/L (6-35); Albumin Level 4.2 g/dL (3.5-5.1); Alkaline Phosphatase 51 U/L (38-126); Anion Gap 3 mmol/L (4-12); Aspartate Amino Transferase 17 U/L (14-36); Bilirubin,Total 0.9 mg/dL (0.2-1.3); Blood Urea Nitrogen 10 mg/dL (7-17); Carbon Dioxide 32 mmol/L (22-30); Chloride 104 mmol/L (98-107); Estimated CRCL calculation 112 ml/min; Estimated Glomerular Filt Rate > 60; Glucose 97 mg/dL (65-110); Lipase 1965 U/L (23-300); Magnesium 2.1 mg/dL (1.6-2.3); Potassium 4.7 mmol/L (3.4-5.0); Sodium 139 mmol/L (137-145)
[2024-10-22] MEDS: LEVOTHYROXINE SODIUM 100 MCG TABLET PO (06:38)
[2024-10-22] MEDS: [UNRECOGNIZED DRUG - OTHER] 1 EACH XX (06:40)
[2024-10-22] MEDS: [UNRECOGNIZED DRUG - REMARK] 1 EACH XX (06:40)
[2024-10-22] MEDS: NORETHINDRONE E ESTRADIOL IRON XX (06:41)
[2024-10-22] MEDS: [UNRECOGNIZED DRUG - OTHER] XX (06:41)
[2024-10-22 08:21] VITALS: BP 138/70; PULSE 70; RESP 16; TEMP 36.9; O2SAT 96
[2024-10-22] MEDS: POTASSIUM CHLORIDE 20 MEQ ER TABLET PO (08:29)
[2024-10-22] MEDS: PANTOPRAZOLE 40 MG TABLET PO ×2 (08:29→21:20)
[2024-10-22] MEDS: CITALOPRAM HYDROBROMIDE 10 MG TABLET PO (08:29)
--- NOTE | 2024-10-22 08:56 | P.PNIM_ITS ---
Progress Note: A&P Assessment and Plan (1) Pancreatitis: Code(s): K85.90 - Acute pancreatitis without necrosis or infection, unspecified Status: Inactive Assessment and Plan: - NPO for now with IVF hydration. - Repeat lactate levels. - Consider gentle diet restart if lactate levels improves. (2) Metastatic melanoma: Code(s): C43.9 - Malignant melanoma of skin, unspecified Status: Acute Assessment and Plan: - Continue f/u with oncologist and dealer account manager. (3) Hypothyroidism: Code(s): E03.9 - Hypothyroidism, unspecified Status: Acute Assessment and Plan: - Continue levothyroxine. (4) Gastroesophageal reflux disease: Code(s): K21.9 - Gastro-esophageal reflux disease without esophagitis Status: Acute Assessment and Plan: - Continue PPI. (5) Depression: Code(s): F32.A - Depression, unspecified Status: Acute Assessment and Plan: - Continue Citalopram. Time Spent With Patient Time with patient: 15 - 25 minutes Subjective Date/time seen: 10/22/24 08:56 Patient states she feels much better, only minimal pain to upper abdomen. Interval history: Patient presented with abdominal pain and CT abd/pelvis consistent with acute interstitial pancreatitis. Pt looks comfortable and we'll maintain NPO for now and repeat lipase levels this evening, consider diet if Lipase levels improves. Review of Systems Review of Systems: All systems reviewed & are unremarkable except as noted in HPI and below Exam Narrative: General: Obese, well appearing and in no acute distress. HEENT: PERRL, EOMI. Sclera anicteric. Tacky mucous membranes. Neck: Supple. Respiratory: Lungs clear bilaterally. Cardiovascular: Regular rate and rhythm with S1-S2. Gastrointestinal: Abdomen soft, obese, nondistended with +ve BS. Mildly tender to palpation, mainly to upper abdomen. Skin: Warm and dry. Hyperpigmented dry patchy are to dorsum, foot with ot reporting prior skin graft to region. Dry scab about 0.3 cm to Right lower foot. Extremities: No cyanosis, clubbing, or edema. Radial and pedal pulses intact. Neurological: Alert. CN II-XII grossly intact. No focal neuro deficits noted. Psychiatric: Pleasant and cooperative. Judgment and insight intact. Objective Data Vital Signs Vital Signs: Vital Signs - 24 hr 10/21/24 21:41 10/22/24 00:00 10/22/24 05:31 Temperature 97.7 F 98.0 F 97.5 F L Pulse Rate 78 72 90 Respiratory Rate 16 14 14 Blood Pressure 146/100 H 136/72 144/104 H Pulse Oximetry 98 100 100 10/22/24 08:21 Temperature 98.4 F Pulse Rate 70 Respiratory Rate 16 Blood Pressure 138/70 Pulse Oximetry 96 Intake/Output Intake/Output: Intake & Output 10/19/24 10/20/24 10/21/24 10/22/24 23:59 23:59 23:59 23:59 Intake Total 1000 Balance 1000 Meds/Results Medications: Active Medications Generic Name Dose Route Start Last Admin Trade Name Freq PRN Reason Stop Dose Admin Acetaminophen 650 mg 10/21/24 21:38 Acetaminophen 325 Mg Tablet PO Q6H PRN Mild Pain (1-3) or Fever Hydrocodone Bitart/Acetaminophen 1 tab 10/21/24 21:38 10/22/24 06:35 Hydrocodone/Acetaminophen (*Crx) 5-325 Mg Tablet PO 1 tab Q6H PRN Administration Pain Rated 4-6 Citalopram Hydrobromide 10 mg 10/22/24 09:00 10/22/24 08:29 Citalopram Hydrobromide 10 Mg Tablet PO 10 mg DAILY EDWIN Administration Enoxaparin Sodium 40 mg 10/22/24 09:00 10/22/24 08:30 Enoxaparin 40 Mg/0.4 Ml Syringe SUB-Q Not Given DAILY EDWIN Lactated Ringer's 1,000 mls @ 150 mls/hr 10/21/24 21:40 10/22/24 08:27 Lr - Lactated Ringers Iv IV CONT 150 mls/hr .Q6H40M EDWIN Administration Levothyroxine Sodium 100 mcg 10/22/24 06:30 10/22/24 06:38 Levothyroxine Sodium 100 Mcg Tablet PO 100 mcg DAILY@0630 EDWIN Administration Miscellaneous Information 1 each 10/21/24 00:01 10/22/24 06:40 (Binimetinib [Mektovi] 15 Mg Tablet) Is Nonformulary, Can Patient Bring From Home? XX 11/20/24 00:00 1 each CLARIFY EDWIN Administration Miscellaneous Information 1 each 10/21/24 00:01 10/22/24 06:40 (Encorafenib [Braftovi] 75 Mg Capsule) Is Nonformulary, Can Patient Bring From Home? XX 11/20/24 00:00 1 each CLARIFY [facility] Administration Miscellaneous Information 1 each 10/21/24 00:01 10/22/24 06:41 Norethindrone-E.Estradiol-Iron [Aurovela 24 Fe] 1 Mg-20 Mcg (24)/75 Mg Is Nonformulary, C XX 11/20/24 00:00 1 each CLARIFY [facility] Administration Morphine Sulfate 4 mg 10/21/24 22:59 10/22/24 01:35 Morphine Sulfate (*Crx) 4 Mg/Ml Inj IV PUSH 4 mg Q4H PRN Administration Pain Rated 7-10 Non-Formulary Medication 45 mg 10/22/24 09:00 Binimetinib [Mektovi] PO 11/21/24 08:59 BID [facility] Non-Formulary Medication 450 mg 10/22/24 09:00 Encorafenib [Braftovi] PO 11/21/24 08:59 DAILY [facility] Non-Formulary Medication 1 tablet 10/22/24 09:00 Norethindrone-E.Estradiol-Iron [Aurovela 24 Fe] PO 11/21/24 08:59 DAILY [facility] Ondansetron HCl 4 mg 10/21/24 21:38 Ondansetron Inj 4 Mg/2 Ml Vial IV PUSH Q6H PRN Nausea And Vomiting Pantoprazole Sodium 40 mg 10/22/24 09:00 10/22/24 08:29 Pantoprazole 40 Mg Tablet PO 40 mg Q12HR EDWIN Administration Potassium Chloride 20 meq 10/22/24 09:00 10/22/24 08:29 Potassium Chloride 20 Meq Er Tablet PO 20 meq DAILY EDWIN Administration Prednisone 20 mg 10/22/24 18:00 Prednisone 20 Mg Tablet PO QPM [facility] Prednisone 100 mg 10/22/24 08:00 Prednisone 20 Mg Tablet PO DAILY@0800 [facility] Labs Labs: Laboratory Results - last 24 hr 10/22/24 06:17 WBC 6.3 RBC 4.13 L Hgb 13.6 D Hct 40.0 MCV 96.9 MCH 32.9 MCHC 34.0 RDW 13.1 Plt Count 285 MPV 9.6 Sodium 139 Potassium 4.7 Chloride 104 Carbon Dioxide 32 H Anion Gap 3 L BUN 10 Creatinine 0.90 Estim Creat Clear Calc 112 Estimated GFR > 60 Glucose 97 Calcium 10.0 Magnesium 2.1 Total Bilirubin 0.9 AST 17 ALT 28 Alkaline Phosphatase 51 Total Protein 7.0 Albumin 4.2 Lipase 1965 H Quality VTE Prophylaxis VTE prophylaxis: pharmacologic ordered Hospitalist [facility] Advance Care Plan I have confirmed that the patient's Advanced Care Plan is present, code status is documented, or surrogate decision maker is listed in patient medical record.: Yes Medication Reconciliation I have utilized all available resources to obtain, update and review the patients current medications (includes all prescriptions, OTC, herbals, cannabis, and nutritional supplements).: Yes
--- NOTE | 2024-10-22 09:11 | P.CONGI_ITS ---
<Statement entered by Fito Contreras MD - 10/22/24 13:57> I, Fito Contreras MD, have provided a substantive portion of the care of this patient and discussed the patient with my Nurse Practitioner. I have reviewed any new relevant radiographic and laboratory results including medications. I agree with her documentation as noted below.?I personally performed the medical decision making and much of the history and exam for this encounter. 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 She says that few days prior to starting medication was having upper abdominal pain that has progressed and then also nausea, CT scan c/w pancreatitis, elevated lipase, normal liver enzymes, no previous pancreatitis, no alcohol abuse. She is npo and comfortable, pending MRCP. Assessment and Plan Assessment and plan (1) Pancreatitis: Qualifiers: Chronicity: acute Pancreatitis type: unspecified pancreatitis type A cute pancreatitis complication: no infection or necrosis Qualified Code(s): K 85.90 - Acute pancreatitis without necrosis or infection, unspecified Code(s): K85.90 - Acute pancreatitis without necrosis or infection, unspecified Status: Inactive (2) Gastroesophageal reflux disease: Qualifiers: Esophagitis presence: esophagitis presence not specified Qualified Code(s): K21.9 - Gastro-esophageal reflux disease without esophagitis Code(s): K21.9 - Gastro-esophageal reflux disease without esophagitis Status: Acute (3) Generalized abdominal pain: Code(s): R10.84 - Generalized abdominal pain Status: Acute (4) Nausea and vomiting: Qualifiers: Vomiting type: bilious vomiting Qualified Code(s): R11.14 - Bilious vomiting Code(s): R11.2 - Nausea with vomiting, unspecified Status: Acute (5) Abnormal findings on imaging of biliary tract: Code(s): R93.2 - Abnormal findings on diagnostic imaging of liver and biliary tract Status: Acute (6) Elevated lipase: Code(s): R74.8 - Abnormal levels of other serum enzymes Status: Acute (7) Hepatic steatosis: Code(s): K76.0 - Fatty (change of) liver, not elsewhere classified Status: Acute (8) Hepatomegaly: Code(s): R16.0 - Hepatomegaly, not elsewhere classified Status: Acute (9) Metastatic melanoma: Code(s): C43.9 - Malignant melanoma of skin, unspecified Status: Acute Plan 1. Generalized abdominal pain/nausea/vomiting/GERD/pancreatitis/elevated lipase/abnormal imaging : Patient has never had an EGD or colonoscopy. Dx with Stage III metastatic left foot melanoma and had surgery and chemotherapy this year, recently change to PO chemotherapy last ( Mektovi and Braftovi) patient has also been on prednisone 20 mg daily since around July. patient admits to an acute onset of generalized abdominal pain last Tuesday but states that over the past few days this pain has become worse. She describes the pain as a sharp /tightness pain that would become worse after eating. She had a 1 time episode of nausea and vomiting since admission but denies any further episodes stating that p.r.n. Zofran has helped. Prior to admission patient was on Prilosec 40 mg daily and denies any reflux symptoms. Denies any prior history of pancreatitis or elevated LFTs. CT on admission 10/21/2024 showed acute interstitial pancreatitis and pancreatic duct dilation without obstructing stone or mass detected, Measurement of ducts not provided in report. Lipase has increased since admission from 1020-->1965. LFT's are normal with total bilirubin 0.9, AST 17, ALT 28, alkaline phosphatase 51, albumin 4.2. CBC and BMP normal. No BM since yesterday but patient normally has 4-5 BM's daily that vary from formed to loose and a non urgent, this is her normal bowel habits. Family Hx negative for GI cancer Hx. Patient denies any autoimmune conditions. DDX: Acute idiopathic pancreatitis versus medication induced versus obstruction vs neoplasm. * Will check CA-19-9 * MRCP ordered * Keep patient NPO for now * further recs to follow MRCP 2. Hepatic steatosis/hepatomegaly: Recent imaging showed hepatic steatosis and hepatomegaly. LFTs normal. BMI 43. * weight loss, healthy eating, exercise, alcohol avoidance and cholesterol control recommended * Continue to monitor LFT's Thank you very much for allowing me to share in the care of this very nice patient. This report may have been done utilizing a voice recognition system. Attempts have been made to correct errors. However, there may be uncorrected grammatical, spelling, and recognition errors present. GI Consult Note Consult date/time: 10/22/24 09:11 Reason for consult: Pancreatitis and dilated pancreatic duct HPI: This is a 24 year old female with PMSH of stage III left foot melanoma on chemotherapy since June 2023, GERD, hypothyroidism, depression and appendectomy. She presented to the ER yesterday with complaints of generalized abdominal pain. GI was consulted for pancreatitis. Patient diagnosed with stage III metastatic left foot melanoma and has been on chemotherapy since June of this year. Her Oncologist is Dr. Finley. patient states that she was transitioned to p.o. chemotherapy last and is now on Mektovi and Braftovi and prednisone 20 mg daily. Patient initially presented to the emergency room at [facility] and was transferred here. She states that since last Tuesday she has been experiencing a sharp pain or a tightness in her abdomen. She states this pain increased last week and was worse after eating. She had 1 episode of nausea and vomiting since admission but states that this has improved with p.r.n. Zofran. She is on Prilosec 40 mg daily and denies any reflux symptoms. She typically has 4-5 bowel movements daily that vary from loose to formed and are non urgent, patient states that this is her normal bowel habits. She denies any bloating, odynophagia, dysphagia, regurgitation, early satiety, unexplained weight loss, appetite loss, diarrhea, constipation, hematochezia, or melena. She was previously using Excedrin daily for headaches/migraines but now states she is only taking a few times weekly. She denies any other aspirin or anticoagulant use. She denies any alcohol, tobacco, or marijuana use. Family history negative for CRC or IBD. ENDOSCOPY HISTORY: EGD: Patient has never had an EGD COLONOSCOPY: Patient has never had a colonoscopy. Family Hx negative for CRC or IBD. LABS AND STOOL STUDIES: Labs 12/23/2023 showed sodium 139, potassium 4.7, BUN 10, creatinine 0.90, GFR > 60. WBC 6, HGB 14, HCT 40, MCV 97, platelets 285. Total bilirubin 0.9, AST 17, ALT 28, alkaline phosphatase 51, albumin 4.2. Calcium 10.0, lipase 1965 TSH > 96.00 (drawn 07/16/2024) IMAGING: CT abd/pelvis w/contrast 10/21/2024 FINDINGS: Lower thorax: Small pericardial fluid collection. Bilateral dependent atelectasis. Liver: Enlarged. Biliary/Gallbladder: Gallbladder is normal. No bile duct dilation. Pancreas: Dilated main pancreatic duct. Mild peripancreatic stranding. Spleen: Normal. Adrenals:No mass. Kidneys: No suspicious mass, obstructing stone, or hydronephrosis. Subcentimeter left midpole hypodensity, too small to characterize. GI tract: No small or large bowel dilation. Appendix not visualized. Mesentery/Peritoneum: No ascites, mass, or free air. Retroperitoneum: No mass. Pelvis: Mild urinary bladder wall thickening. Normal uterus and bilateral ovaries. Soft Tissues: Enlarged left inguinal lymph node. Bones: No acute osseous finding. IMPRESSION: Small pericardial effusion. Hepatomegaly. Acute interstitial pancreatitis. Pancreatic duct dilation, without obstructing stone or mass detected. Mild urinary bladder wall thickening, may reflect cystitis, correlate with urinalysis. Left inguinal lymphadenopathy. CT abd/pelvis w/contrast 06/27/2024 Impression: No evidence to suggest appendicitis. No bowel obstruction or inflammation Right lower quadrant and mesenteric lymph nodes may be seen in mesenteric adenitis No hydronephrosis or renal calculus Hepatic steatosis and hepatomegaly PET scan 04/04/2024 FINDINGS: Head/neck: There are no pathologically enlarged lymph nodes. There is a right internal jugular port with tip in proximal right atrium. Chest: There is no pneumonia or pleural effusion. The heart size is normal. No pericardial effusion. There are no pathologically enlarged lymph nodes. Abdomen/pelvis/lower extremities: There is diffuse hepatic steatosis. The gallbladder, spleen, pancreas, adrenal glands, and kidneys are normal. There are no dilated loops of bowel. There is no free intraperitoneal fluid. There are no pathologically enlarged lymph nodes. There are surgical changes at the dorsum of left foot. There are surgical changes of left inguinal lymph node resection with increased activity, consistent with inflammation. In the left branham and anteromedial left thigh, there are multiple subcutaneous masses with increased activity. For example, a subcutaneous mass in left branham measures 10 x 8 mm with maximum SUV of 11.7. Note that there is spatial misregistration between the PET and CT images. IMPRESSION: 1. Multiple subcutaneous masses in left branham and anteromedial left thigh with increased activity, consistent with metastatic disease. Review of Systems 2 Constitutional: Constitutional: Reports as per HPI ENT: Reports as per HPI Cardiovascular: Cardiovascular: Reports as per HPI, Denies chest pain and Denies dyspnea Respiratory: Respiratory: Denies cough and Denies dyspnea Gastrointestinal: Gastrointestinal: Reports as per HPI Musculoskeletal: Musculoskeletal: Reports as per HPI Integumentary/Breasts: Skin/Breast: Reports as per HPI Comments: prior surgical site on top of left foot Psychiatric: Psychiatric: Reports as per HPI Endocrine: Endocrine: Reports no additional endocrine complaints Hematologic/Lymphatic: Hematologic/Lymphatic: Reports no additional hematologic/lymphatic complaints FOR[facility]LY [facility] Past Medical History Medical History (Updated 10/22/24 @ 09:30 by Svetlana Sheth APRN) Pancreatitis Gastroesophageal reflux disease Metastatic melanoma Hypothyroidism Suppression, menstruation BMI 40.0-44.9, adult Depression Surgical History Surgical History (Updated 10/21/24 @ 22:54 by Lien Casiano PA-C) History of skin graft History of melanoma excision History of insertion of tunneled central venous catheter (CVC) with port History of appendectomy Family History Family History Father Diverticulitis Mother No problems noted. Sibling No problems noted. Father Malignant neoplasm of prostate Other Diabetes mellitus Heart disease Social History Social History Social History: Surrogate medical decision maker: Lyndsay Hilton, mother. Code status: Full code. Smoking packs per day: 0.5 Smoking cigarettes per day: 10.0 Years smoked: 7 Smoking pack-years: 3.50 Smoking status: Former smoker Second hand tobacco smoke exposure: Yes Alcohol intake: current Alcohol use details: Rare alcohol use in moderation Substance use: former Substance use type: marijuana Do You Feel Safe in your Home?: Yes Lack of Transportation: No Lack of Food: Never True Current Housing: I Have Housing Concerned About Future Housing: No Difficulty Paying Gas/Electric Bills: No Difficulty Paying for Meds: No Currently Unemployed: No Education: High School Diploma/GED Difficulty w/ Childcare or Family Care: No Living arrangements: with family Additional living arrangements comments: Saez Occupation/Education: occupation Additional occupation/education comments: [employer] Spiritual care concerns: No Meds Home Medications and Allergies Home Medications ?Medication ?Instructions ?Recorded ?Confirmed ?Type binimetinib 15 mg tablet (Mektovi) 45 mg PO BID 10/21/24 10/21/24 History citalopram 10 mg tablet 10 mg PO DAILY 10/21/24 10/21/24 History citalopram 10 mg tablet (Celexa) 10 mg PO DAILY 10/21/24 10/21/24 History encorafenib 75 mg capsule 450 mg PO DAILY 10/21/24 10/21/24 History (Braftovi) levothyroxine 100 mcg tablet 100 mcg PO DAILY 10/21/24 10/21/24 History norethindrone 1 mg-ethinyl 1 tablet PO DAILY 10/21/24 10/21/24 History estradiol 20 mcg (24)-iron 75 mg (4) tablet (Aurovela 24 Fe) omeprazole 40 mg capsule,delayed 40 mg PO DAILY 10/21/24 10/21/24 History release potassium chloride 20 mEq 20 meq PO DAILY 10/21/24 10/21/24 History tablet,extended release(part/cryst) (Klor-Con M) prednisone 20 mg tablet 100 mg PO DAILY 10/21/24 10/21/24 History Allergies Allergy/AdvReac Type Severity Reaction Status Date / Time No Known Allergies Allergy Verified 10/21/24 21:32 Vital Signs Vital Signs - 24 hr 10/21/24 21:41 10/22/24 00:00 10/22/24 05:31 Temperature 97.7 F 98.0 F 97.5 F L Pulse Rate 78 72 90 Respiratory Rate 16 14 14 Blood Pressure 146/100 H 136/72 144/104 H Pulse Oximetry 98 100 100 10/22/24 08:21 Temperature 98.4 F Pulse Rate 70 Respiratory Rate 16 Blood Pressure 138/70 Pulse Oximetry 96 Exam 2 Const: General: cooperative, healthy appearing, comfortable, no acute distress, well developed and obese Orientation/consciousness: oriented to person, oriented to place, oriented to time and patient oriented x3 HENMT: Head: normal to inspection, normocephalic and atraumatic Mouth: Yes Normal oral and palatal mucosa present and Yes moist mucous membranes Eyes: General: appearance normal, both eyes and all related structures C onjunctivae: conjunctivae normal Sclera: sclerae normal Pupils: Equal, round and reactive pupils present Neck: Neck: normal visual inspection Chest: Chest palpation & inspection: normal inspection of the chest Resp: Effort & Inspection: normal respiratory effort and able to speak in complete sentences Auscultation: clear to auscultation bilaterally Cardio: Jugular venous distension: no JVD Rate: regular rate Rhythm: r egular rhythm Heart sounds: S1 normal heart sound present and S2 normal heart sound present GI: Inspection: normal to inspection GI Palp: Yes Soft to palpation and Yes No hepatosplenomegaly present Auscultation: normal bowel sounds Rectal Exam: deferred Skin: General skin exam: normal color and no rashes or lesions noted Neuro: General: oriented to person, oriented to place, oriented to time and patient oriented x3 Cranial nerves: Yes Equal, round and reactive pupils present Speech: normal speech Extrem: General: normal to inspection and no clubbing, cyanosis or edema Psych: Appearance: grossly normal and well kempt Affect: normal affect Results Labs 10/22/24 06:17 10/22/24 06:17 Labs: Short CBC 10/22/24 Range/Units 06:17 WBC 6.3 (4.5-10.0) K/mm3 Hgb 13.6 D (12.0-15.0) g/dL Hct 40.0 (37.0-47.0) % Plt Count 285 (150-375) k/mm3 [facility] 10/22/24 06:17 Sodium 139 Potassium 4.7 Chloride 104 Carbon Dioxide 32 H BUN 10 Creatinine 0.90 Glucose 97 Calcium 10.0 Liver Function 10/22/24 Range/Units 06:17 Total Bilirubin 0.9 (0.2-1.3) mg/dL AST 17 (14-36) U/L ALT 28 (6-35) U/L Alkaline Phosphatase 51 (38-126) U/L Albumin 4.2 (3.5-5.1) g/dL
--- NOTE | 2024-10-22 09:49 | PHAR ---
Home meds verified: Mektovi 15mg bottle (no Rx label) Braftovi 75mg bottle (no Rx label) Aurovela 24 FE BCP dosing pouch (no Rx label)
[2024-10-22 12:06] VITALS: BP 144/92; PULSE 87; RESP 16; TEMP 36.8; O2SAT 100
[2024-10-22] MEDS: ETHINYL ESTRADIOL PO (12:50)
[2024-10-22] MEDS: NORETHINDRONE ACETATE PO (12:50)
[2024-10-22] MEDS: FERROUS FUMARATE PO (12:50)
[2024-10-22 17:03] VITALS: BP 145/78; PULSE 71; RESP 17; TEMP 36.1; O2SAT 99
[2024-10-22 20:50] VITALS: BP 151/94; PULSE 69; RESP 16; TEMP 36.4; O2SAT 100
[2024-10-22] MEDS: BINIMETINIB 15 MG 45 EACH PO (21:00)
[2024-10-23] VITALS: BP 149/90; PULSE 88; RESP 16; TEMP 36.7; O2SAT 98
[2024-10-23] MEDS: LACTATED RINGERS 1,000 ML 150 ML IV CONT ×2 (00:01→07:06)
[2024-10-23 05:07] VITALS: BP 125/79; PULSE 72; RESP 16; TEMP 36.4; O2SAT 99
[2024-10-23] MEDS: LEVOTHYROXINE SODIUM 100 MCG TABLET PO (06:34)
[2024-10-23 08:00] VITALS: BP 163/107; PULSE 80; RESP 18; TEMP 36.6; O2SAT 100
[2024-10-23 08:03] LABS: CA 19-9 51 U/mL (<34)
[2024-10-23 08:32] LABS: Anion Gap 4 mmol/L (4-12); Blood Urea Nitrogen 14 mg/dL (7-17); Calcium 9.6 mg/dL (8.4-10.2); Carbon Dioxide 30 mmol/L (22-30); Chloride 105 mmol/L (98-107); Estimated CRCL calculation 113 ml/min; Estimated Glomerular Filt Rate > 60; Glucose 81 mg/dL (65-110); Potassium 4.1 mmol/L (3.4-5.0); Sodium 139 mmol/L (137-145)
[2024-10-23 08:33] LABS: Lipase 2168 U/L (23-300)
[2024-10-23] MEDS: PANTOPRAZOLE 40 MG TABLET PO ×2 (09:08→20:14)
[2024-10-23] MEDS: predniSONE 20 MG TABLET PO (09:09)
[2024-10-23] MEDS: CITALOPRAM HYDROBROMIDE 10 MG TABLET PO (09:09)
[2024-10-23] MEDS: POTASSIUM CHLORIDE 20 MEQ ER TABLET PO (09:09)
[2024-10-23] MEDS: BINIMETINIB 15 MG 45 EACH PO (09:10)
--- NOTE | 2024-10-23 10:28 | P.PNIM_ITS ---
Progress Note: A&P Assessment and Plan (1) Pancreatitis: Qualifiers: Chronicity: acute Pancreatitis type: unspecified pancreatitis type Acute pancreatitis complication: no infection or necrosis Qualified Code(s): K85.90 - Acute pancreatitis without necrosis or infection, unspecified Code(s): K85.90 - Acute pancreatitis without necrosis or infection, unspecified Status: Inactive Assessment and Plan: - NPO for now with IVF hydration. - Lipase trending up; 1020, 1965, 2168. - Possibly related to CA with elevated CA 19-9. - GI following. - Consider diet with pt denying any GI symptoms. - Supportive care. (2) Metastatic melanoma: Code(s): C43.9 - Malignant melanoma of skin, unspecified Status: Acute Assessment and Plan: - CA 19-9 elevated. - Continue f/u with oncologist and transportation escort. (3) Hypothyroidism: Code(s): E03.9 - Hypothyroidism, unspecified Status: Acute Assessment and Plan: - Continue levothyroxine. (4) Gastroesophageal reflux disease: Qualifiers: Esophagitis presence: esophagitis presence not specified Qualified Code(s): K21.9 - Gastro-esophageal reflux disease without esophagitis Code(s): K21.9 - Gastro-esophageal reflux disease without esophagitis Status: Acute Assessment and Plan: - Continue PPI. (5) Depression: Code(s): F32.A - Depression, unspecified Status: Acute Assessment and Plan: - Continue Citalopram. Time Spent With Patient Time with patient: 15 - 25 minutes Subjective Date/time seen: 10/23/24 10:28 Patient states she's feeling alright with no abdominal pain or GI distress, only hungry. Interval history: Patient calm on bedrest and looks to be in no acute distress. Review of Systems Review of Systems: 12 systems were reviewed and are negativ e except for as per HPI. All systems reviewed & are unremarkable except as noted in HPI and below Exam Narrative: General: Obese, well appearing and in no acute distress. HEENT: PERRL, EOMI. Sclera anicteric. Tacky mucous membranes. Neck: Supple. Respiratory: Lungs clear bilaterally. Cardiovascular: Regular rate and rhythm with S1-S2. Gastrointestinal: Abdomen soft, obese, non-tender, nondistended with +ve BS. Skin: Warm and dry. Hyperpigmented dry patchy area to left dorsum, pt reporting prior skin graft to region. Dry scab about 0.3 cm to Right lower foot. Extremities: No cyanosis, clubbing, or edema. Radial and pedal pulses intact. Neurological: Alert. CN II-XII grossly intact. No focal neuro deficits noted. Psychiatric: Pleasant and cooperative. Judgment and insight intact. Objective Data Vital Signs Vital Signs: Vital Signs - 24 hr 10/22/24 12:06 10/22/24 17:03 10/22/24 20:00 Temperature 98.3 F 97.0 F L Pulse Rate 87 71 Respiratory Rate 16 17 Blood Pressure 144/92 H 145/78 H Pulse Oximetry 100 99 Oxygen Delivery Room Air 10/22/24 20:50 10/23/24 00:00 10/23/24 05:07 Temperature 97.6 F 98.1 F 97.5 F L Pulse Rate 69 88 72 Respiratory Rate 16 16 16 Blood Pressure 151/94 H 149/90 H 125/79 Pulse Oximetry 100 98 99 Oxygen Delivery 10/23/24 08:00 10/23/24 09:10 Temperature 97.9 F Pulse Rate 80 Respiratory Rate 18 Blood Pressure 163/107 H Pulse Oximetry 100 Oxygen Delivery Room Air Intake/Output Intake/Output: Intake & Output 10/20/24 10/21/24 10/22/24 10/23/24 23:59 23:59 23:59 23:59 Intake Total 1999 1999 Balance 1999 1999 Meds/Results Medications: Active Medications Generic Name Dose Route Start Last Admin Trade Name Freq PRN Reason Stop Dose Admin Acetaminophen 650 mg 10/21/24 21:38 Acetaminophen 325 Mg Tablet PO Q6H PRN Mild Pain (1-3) or Fever Hydrocodone Bitart/Acetaminophen 1 tab 10/21/24 21:38 10/22/24 06:35 Hydrocodone/Acetaminophen (*Crx) 5-325 Mg Tablet PO 1 tab Q6H PRN Administration Pain Rated 4-6 Citalopram Hydrobromide 10 mg 10/22/24 09:00 10/23/24 09:09 Citalopram Hydrobromide 10 Mg Tablet PO 10 mg DAILY EDWIN Administration Enoxaparin Sodium 40 mg 10/22/24 09:00 10/23/24 09:10 Enoxaparin 40 Mg/0.4 Ml Syringe SUB-Q Not Given DAILY [facility] Lactated Ringer's 1,000 mls @ 150 mls/hr 10/21/24 21:40 10/23/24 07:06 Lr - Lactated Ringers Iv IV CONT 150 mls/hr .Q6H40M EDWIN Administration Levothyroxine Sodium 100 mcg 10/22/24 06:30 10/23/24 06:34 Levothyroxine Sodium 100 Mcg Tablet PO 100 mcg DAILY@0630 EDWIN Administration Morphine Sulfate 4 mg 10/21/24 22:59 10/22/24 01:35 Morphine Sulfate (*Crx) 4 Mg/Ml Inj IV PUSH 4 mg Q4H PRN Administration Pain Rated 7-10 Home Med ( 45 mg 10/22/24 09:00 10/23/24 09:10 Binimetinib [Mektovi PO 11/21/24 08:59 45 mg ] 15 Mg Tablet) BID EDWIN Administration Home Med Encorafenib 450 mg 10/22/24 09:00 10/22/24 12:50 [Braftovi] 75 Mg PO 11/21/24 08:59 Not Given Capsule DAILY [facility] Home Med [Aurovela 1 tablet 10/22/24 09:00 10/23/24 09:10 24 Fe] 1 Mg-20 Mcg ( PO 11/21/24 08:59 Not Given 24)/75 Mg DAILY [facility] Ondansetron HCl 4 mg 10/21/24 21:38 Ondansetron Inj 4 Mg/2 Ml Vial IV PUSH Q6H PRN Nausea And Vomiting Pantoprazole Sodium 40 mg 10/22/24 09:00 10/23/24 09:08 Pantoprazole 40 Mg Tablet PO 40 mg Q12HR EDWIN Administration Potassium Chloride 20 meq 10/22/24 09:00 10/23/24 09:09 Potassium Chloride 20 Meq Er Tablet PO 20 meq DAILY EDWIN Administration Prednisone 20 mg 10/23/24 08:00 10/23/24 09:09 Prednisone 20 Mg Tablet PO 20 mg DAILY@0800 EDWIN Administration Radiology Results: ITS Impressions MRCP 10/22/24 16:39 IMPRESSION: 1. Acute interstitial pancreatitis. 2. No choledocholithiasis. 3. Small pleural effusions. Labs Labs: Laboratory Results - last 24 hr 10/22/24 10/23/24 06:17 08:06 Sodium 139 Potassium 4.1 Chloride 105 Carbon Dioxide 30 Anion Gap 4 BUN 14 Creatinine 0.90 Estim Creat Clear Calc 113 Estimated GFR > 60 Glucose 81 Calcium 9.6 Lipase 2168 H CA 19-9 Antigen 51 H Quality VTE Prophylaxis VTE prophylaxis: pharmacologic ordered Hospitalist MIPS Advance Care Plan I have confirmed that the patient's Advanced Care Plan is present, code status is documented, or surrogate decision maker is listed in patient medical record.: Yes Medication Reconciliation I have utilized all available resources to obtain, update and review the patients current medications (includes all prescriptions, OTC, herbals, cannabis, and nutritional supplements).: Yes
[2024-10-23 12:00] VITALS: BP 158/100; PULSE 89; RESP 18; TEMP 36.2; O2SAT 98
[2024-10-23] MEDS: lisinopriL 20 MG TABLET PO (12:52)
--- NOTE | 2024-10-23 14:38 | WPDGIPROGNO ---
Progress Note: A&P Assessment and Plan (1) Pancreatitis: Qualifiers: Chronicity: acute Pancreatitis type: unspecified pancreatitis type Acute pancreatitis complication: no infection or necrosis Qualified Code(s): K85.90 - Acute pancreatitis without necrosis or infection, unspecified Code(s): K85.90 - Acute pancreatitis without necrosis or infection, unspecified Status: Inactive Assessment and Plan: mrcp reviewed, normal bile duct and GB, interstitial pancreatitis normal liver enzymes and clinically much better will start low fat diet- advise to eat small amount continue supportive care no alcohol, will check TG level (2) Nausea and vomiting: Qualifiers: Vomiting type: bilious vomiting Qualified Code(s): R11.14 - Bilious vomiting Code(s): R11.2 - Nausea with vomiting, unspecified Status: Acute Assessment and Plan: resolved (3) Generalized abdominal pain: Code(s): R10.84 - Generalized abdominal pain Status: Acute Assessment and Plan: almost gone (4) Melanoma: Qualifiers: Melanoma location: lower extremity including hip Laterality: left Qualified Code(s): C43.72 - Malignant melanoma of left lower limb, including hip Code(s): C43.9 - Malignant melanoma of skin, unspecified Status: Inactive Assessment and Plan: on oral medications- pain started prior to those medications Subjective Date/time seen: 10/23/24 14:38 Interval history: no more pain and she is hungry, comfortable Review of Systems Review of Systems: All systems reviewed & are unremarkable except as noted in HPI and below Exam Const: General: comfortable and no acute distress Other: obese HENMT: Face/Nose/Sinus: Normal nares present Eyes: General: appearance normal, both eyes and all related structures Neck: Neck: supple Resp: Auscultation: clear to auscultation bilaterally Cardio: Rate: regular rate Rhythm: regular rhythm GI: Inspection: non-distended GI Palp: Yes Soft to palpation and No Tenderness to palpation present (GI) Auscultation: normal bowel sounds Skin: Other: left foot s/p skin graft Neuro: Speech: normal speech Motor exam (neuro): 5/5 motor strength present throughout Extrem: General: normal to inspection Psych: Mental Status: mental status grossly normal Objective Data Vital Signs Vital Signs: Vital Signs - 24 hr 10/22/24 17:03 10/22/24 20:00 10/22/24 20:50 Temperature 97.0 F L 97.6 F Pulse Rate 71 69 Respiratory Rate 17 16 Blood Pressure 145/78 H 151/94 H Pulse Oximetry 99 100 Oxygen Delivery Room Air 10/23/24 00:00 10/23/24 05:07 10/23/24 08:00 Temperature 98.1 F 97.5 F L 97.9 F Pulse Rate 88 72 80 Respiratory Rate 16 16 18 Blood Pressure 149/90 H 125/79 163/107 H Pulse Oximetry 98 99 100 Oxygen Delivery 10/23/24 09:10 10/23/24 12:00 Temperature 97.1 F L Pulse Rate 89 Respiratory Rate 18 Blood Pressure 158/100 H Pulse Oximetry 98 Oxygen Delivery Room Air Intake/Output Intake/Output: Intake & Output 10/20/24 10/21/24 10/22/24 10/23/24 23:59 23:59 23:59 23:59 Intake Total 1999 1999 Balance 1999 1999 Meds/Results Medications: Active Medications Generic Name Dose Route Start Last Admin Trade Name Freq PRN Reason Stop Dose Admin Acetaminophen 650 mg 10/21/24 21:38 Acetaminophen 325 Mg Tablet PO Q6H PRN Mild Pain (1-3) or Fever Hydrocodone Bitart/Acetaminophen 1 tab 10/21/24 21:38 10/22/24 06:35 Hydrocodone/Acetaminophen (*Crx) 5-325 Mg Tablet PO 1 tab Q6H PRN Administration Pain Rated 4-6 Citalopram Hydrobromide 10 mg 10/22/24 09:00 10/23/24 09:09 Citalopram Hydrobromide 10 Mg Tablet PO 10 mg DAILY EDWIN Administration Enoxaparin Sodium 40 mg 10/22/24 09:00 10/23/24 09:10 Enoxaparin 40 Mg/0.4 Ml Syringe SUB-Q Not Given DAILY EDWIN Lactated Ringer's 1,000 mls @ 150 mls/hr 10/21/24 21:40 10/23/24 07:06 Lr - Lactated Ringers Iv IV CONT 150 mls/hr .Q6H40M EDWIN Administration Levothyroxine Sodium 100 mcg 10/22/24 06:30 10/23/24 06:34 Levothyroxine Sodium 100 Mcg Tablet PO 100 mcg DAILY@0630 EDWIN Administration Lisinopril 20 mg 10/23/24 12:20 10/23/24 12:52 Lisinopril 20 Mg Tablet PO 20 mg QAM EDWIN Administration Morphine Sulfate 4 mg 10/21/24 22:59 10/22/24 01:35 Morphine Sulfate (*Crx) 4 Mg/Ml Inj IV PUSH 4 mg Q4H PRN Administration Pain Rated 7-10 Home Med [Aurovela 1 tablet 10/22/24 09:00 10/23/24 09:10 24 Fe] 1 Mg-20 Mcg ( PO 11/21/24 08:59 Not Given 24)/75 Mg DAILY [facility] Non-Formulary Medication 450 mg 10/23/24 21:00 Encorafenib [Braftovi] PO 11/22/24 20:59 HS EDWIN Non-Formulary Medication 45 mg 10/23/24 21:00 Binimetinib [Mektovi] PO 11/22/24 20:59 0800,2100 EDWIN Ondansetron HCl 4 mg 10/21/24 21:38 Ondansetron Inj 4 Mg/2 Ml Vial IV PUSH Q6H PRN Nausea And Vomiting Pantoprazole Sodium 40 mg 10/22/24 09:00 10/23/24 09:08 Pantoprazole 40 Mg Tablet PO 40 mg Q12HR EDWIN Administration Potassium Chloride 20 meq 10/22/24 09:00 10/23/24 09:09 Potassium Chloride 20 Meq Er Tablet PO 20 meq DAILY EDWIN Administration Prednisone 20 mg 10/23/24 08:00 10/23/24 09:09 Prednisone 20 Mg Tablet PO 20 mg DAILY@0800 EDWIN Administration Radiology Results: ITS Impressions MRCP 10/22/24 16:39 IMPRESSION: 1. Acute interstitial pancreatitis. 2. No choledocholithiasis. 3. Small pleural effusions. Labs Labs: Laboratory Results - last 24 hr 10/22/24 10/23/24 06:17 08:06 Sodium 139 Potassium 4.1 Chloride 105 Carbon Dioxide 30 Anion Gap 4 BUN 14 Creatinine 0.90 Estim Creat Clear Calc 113 Estimated GFR > 60 Glucose 81 Calcium 9.6 Lipase 2168 H CA 19-9 Antigen 51 H
[2024-10-23 16:00] VITALS: BP 160/95; PULSE 73; RESP 16; TEMP 36.6; O2SAT 99
[2024-10-23] MEDS: HYDROcodone/acetaminophen (*CRX) 5-325 MG TABLET 1 TAB PO (20:14)
[2024-10-23 21:14] VITALS: BP 153/96; PULSE 74; RESP 16; TEMP 36.5; O2SAT 100
[2024-10-23] MEDS: ENCORAFENIB 450 MG PO (21:45)
[2024-10-23] MEDS: [UNRECOGNIZED DRUG - OTHER] PO (21:45)
[2024-10-23] MEDS: [UNRECOGNIZED DRUG - OTHER] 45 EACH PO (21:45)
[2024-10-23] MEDS: MORPHINE SULFATE (*CRX) 4 MG/ML INJ IV PUSH (22:47)
[2024-10-24] VITALS (8 sets, daily range): BP systolic 121–164; BP diastolic 67–119; PULSE 47–97; RESP 14–18; TEMP 36.2–36.9; O2SAT 95–100
[2024-10-24 06:05] LABS: Potassium 3.8 mmol/L (3.4-5.0); Triglycerides 121 mg/dL (<150)
[2024-10-24] MEDS: LEVOTHYROXINE SODIUM 100 MCG TABLET PO (06:25)
[2024-10-24 06:53] LABS: Lipase 2431 U/L (23-300)
[2024-10-24 08:11] LABS: Basophils Percent Auto 0.2 % (0.2-1.2); Eosinophils Absolute Auto 0.1 K/mm3 (0-0.3); Hematocrit 38.4 % (37.0-47.0); Hemoglobin 12.6 g/dL (12.0-15.0); Immature Granulocyte Absolute 0.02 K/mm3 (0.00-0.031); Immature Granulocyte Percent A 0.3 % (0-0.5); Lymphocytes Absolute Auto 1.23 K/mm3 (0.9-3.2); Lymphocytes Percent Auto 20.2 % (18.3-44.2); Mean Corpuscular HGB Conc 32.8 g/dl (32-36); Mean Corpuscular Hemoglobin 31.9 pg (26-34); Mean Corpuscular Volume 97.2 fl (80-100); Mean Platelet Volume 10.2 fl (7.4-10.4); Monocytes Absolute Auto 0.6 K/mm3 (0.1-0.6); Monocytes Percent Auto 9.5 % (2.6-8.5); Neutrophils Absolute Auto 4.2 K/mm3 (1.3-6.7); Neutrophils Percent Auto 68.8 % (45.5-73.1); Platelet Count Result 296 k/mm3 (150-375); Red Blood Count 3.95 M/mm3 (4.2-5.4); Red Cell Distribution Width 12.4 % (11.5-14.5); White Blood Count 6.1 K/mm3 (4.5-10.0)
[2024-10-24 08:25] LABS: Alanine Aminotransferase 20 U/L (6-35); Albumin Level 3.9 g/dL (3.5-5.1); Alkaline Phosphatase 45 U/L (38-126); Anion Gap 5 mmol/L (4-12); Aspartate Amino Transferase 20 U/L (14-36); Bilirubin,Total 0.4 mg/dL (0.2-1.3); Blood Urea Nitrogen 16 mg/dL (7-17); Calcium 9.6 mg/dL (8.4-10.2); Carbon Dioxide 27 mmol/L (22-30); Chloride 105 mmol/L (98-107); Estimated CRCL calculation 101 ml/min; Estimated Glomerular Filt Rate > 60; Glucose 129 mg/dL (65-110); Potassium 3.9 mmol/L (3.4-5.0); Sodium 137 mmol/L (137-145)
[2024-10-24] MEDS: CITALOPRAM HYDROBROMIDE 10 MG TABLET PO (08:25)
[2024-10-24] MEDS: predniSONE 20 MG TABLET PO (08:25)
[2024-10-24] MEDS: POTASSIUM CHLORIDE 20 MEQ ER TABLET PO (08:25)
[2024-10-24] MEDS: PANTOPRAZOLE 40 MG TABLET PO ×2 (08:25→20:15)
[2024-10-24] MEDS: lisinopriL 20 MG TABLET PO (08:26)
[2024-10-24] MEDS: [UNRECOGNIZED DRUG - OTHER] 45 EACH PO ×2 (08:26→20:15)
[2024-10-24] MEDS: MORPHINE SULFATE (*CRX) 4 MG/ML INJ IV PUSH (08:26)
--- NOTE | 2024-10-24 11:10 | P.PNIM_ITS ---
Progress Note: A&P Assessment and Plan (1) Pancreatitis: Qualifiers: Chronicity: acute Pancreatitis type: unspecified pancreatitis type Acute pancreatitis complication: no infection or necrosis Qualified Code(s): K85.90 - Acute pancreatitis without necrosis or infection, unspecified Code(s): K85.90 - Acute pancreatitis without necrosis or infection, unspecified Status: Inactive Assessment and Plan: - Change diet to full liquid, patient not tolerating low fat well. - Lipase trending up; [id number] - Possibly related to CA with elevated CA 19-9. - GI following. - MRCP showed normal bile duct and GB, interstitial pancreatitis. - Normal liver enzymes. - Supportive care. (2) Metastatic melanoma: Code(s): C43.9 - Malignant melanoma of skin, unspecified Status: Acute Assessment and Plan: - CA 19-9 elevated. - Continue f/u with oncologist and concession supervisor. - Patient receiving oral Braftovi and Mektovi (3) Hypothyroidism: Code(s): E03.9 - Hypothyroidism, unspecified Status: Acute Assessment and Plan: - Continue levothyroxine. (4) Gastroesophageal reflux disease: Qualifiers: Esophagitis presence: esophagitis presence not specified Qualified Code(s): K21.9 - Gastro-esophageal reflux disease without esophagitis Code(s): K21.9 - Gastro-esophageal reflux disease without esophagitis Status: Acute Assessment and Plan: - Continue PPI. (5) Depression: Code(s): F32.A - Depression, unspecified Status: Acute Assessment and Plan: - Continue Citalopram. Subjective Date/time seen: 10/24/24 11:10 Interval history: Patient reports pain in abdomen is a 3 , constant, and varying from sharp to cramping. Patient reports nausea overnight. Patient denies shortness of breath, headache, dizziness, or vomiting. Review of Systems Review of Systems: All systems reviewed & are unremarkable except as noted in HPI and below Exam Const: General: no acute distress and uncomfortable Resp: Effort & Inspection: normal respiratory effort Auscultation: clear to auscultation bilaterally Cardio: Rate: regular rate Rhythm: regular rhythm GI: GI Palp: Yes Soft to palpation Auscultation: normal bowel sounds Skin: Other: left foot s/p skin graft. Left branham scabbed area from melanoma removal, no drainage. Neuro: Speech: normal speech Extrem: General: normal to inspection Psych: Mental Status: mental status grossly normal Affect: normal affect Objective Data Vital Signs Vital Signs: Vital Signs - 24 hr 10/23/24 12:00 10/23/24 16:00 10/23/24 20:15 Temperature 97.1 F L 97.8 F Pulse Rate 89 73 Respiratory Rate 18 16 Blood Pressure 158/100 H 160/95 H Pulse Oximetry 98 99 Oxygen Delivery Room Air 10/23/24 21:14 10/24/24 00:52 10/24/24 06:20 Temperature 97.7 F 98.2 F 98.3 F Pulse Rate 74 97 83 Respiratory Rate 16 14 16 Blood Pressure 153/96 H 164/85 H 147/88 H Pulse Oximetry 100 96 99 Oxygen Delivery 10/24/24 08:00 10/24/24 08:26 Temperature 98.3 F Pulse Rate 47 L Respiratory Rate 18 18 Blood Pressure 121/67 Pulse Oximetry 99 99 Oxygen Delivery Room Air Intake/Output Intake/Output: Intake & Output 10/21/24 10/22/24 10/23/24 10/24/24 23:59 23:59 23:59 23:59 Intake Total 19990 586 Balance 19990 586 Meds/Results Medications: Active Medications Generic Name Dose Route Start Last Admin Trade Name Freq PRN Reason Stop Dose Admin Acetaminophen 650 mg 10/21/24 21:38 Acetaminophen 325 Mg Tablet PO Q6H PRN Mild Pain (1-3) or Fever Hydrocodone Bitart/Acetaminophen 1 tab 10/21/24 21:38 10/23/24 20:14 Hydrocodone/Acetaminophen (*Crx) 5-325 Mg Tablet PO 1 tab Q6H PRN Administration Pain Rated 4-6 Citalopram Hydrobromide 10 mg 10/22/24 09:00 10/24/24 08:25 Citalopram Hydrobromide 10 Mg Tablet PO 10 mg DAILY EDWIN Administration Enoxaparin Sodium 40 mg 10/22/24 09:00 10/24/24 08:26 Enoxaparin 40 Mg/0.4 Ml Syringe SUB-Q Not Given DAILY EDWIN Levothyroxine Sodium 100 mcg 10/22/24 06:30 10/24/24 06:25 Levothyroxine Sodium 100 Mcg Tablet PO 100 mcg DAILY@0630 EDWIN Administration Lisinopril 20 mg 10/23/24 12:20 10/24/24 08:26 Lisinopril 20 Mg Tablet PO 20 mg QAM EDWIN Administration Morphine Sulfate 4 mg 10/21/24 22:59 10/24/24 08:26 Morphine Sulfate (*Crx) 4 Mg/Ml Inj IV PUSH 4 mg Q4H PRN Administration Pain Rated 7-10 Home Med [Aurovela 1 tablet 10/22/24 09:00 10/24/24 08:28 24 Fe] 1 Mg-20 Mcg ( PO 11/21/24 08:59 Not Given 24)/75 Mg DAILY EDWIN Non-Formulary Medication 450 mg 10/23/24 21:00 10/23/24 21:45 Encorafenib [Braftovi] PO 11/22/24 20:59 450 mg HS EDWIN Administration Non-Formulary Medication 45 mg 10/23/24 21:00 10/24/24 08:26 Binimetinib [Mektovi] PO 11/22/24 20:59 45 mg 0800,2100 EDWIN Administration Ondansetron HCl 4 mg 10/21/24 21:38 Ondansetron Inj 4 Mg/2 Ml Vial IV PUSH Q6H PRN Nausea And Vomiting Pantoprazole Sodium 40 mg 10/22/24 09:00 10/24/24 08:25 Pantoprazole 40 Mg Tablet PO 40 mg Q12HR EDWIN Administration Potassium Chloride 20 meq 10/22/24 09:00 10/24/24 08:25 Potassium Chloride 20 Meq Er Tablet PO 20 meq DAILY EDWIN Administration Prednisone 20 mg 10/23/24 08:00 10/24/24 08:25 Prednisone 20 Mg Tablet PO 20 mg DAILY@0800 EDWIN Administration Radiology Results: ITS Impressions MRCP 10/22/24 16:39 IMPRESSION: 1. Acute interstitial pancreatitis. 2. No choledocholithiasis. 3. Small pleural effusions. Labs Labs: Laboratory Results - last 24 hr 10/24/24 10/24/24 05:24 05:24 WBC 6.1 RBC 3.95 L Hgb 12.6 Hct 38.4 MCV 97.2 MCH 31.9 MCHC 32.8 RDW 12.4 Plt Count 296 MPV 10.2 Immature Gran % (Auto) 0.3 Neut % (Auto) 68.8 Lymph % (Auto) 20.2 [place] % (Auto) 9.5 H Eos % (Auto) 1.0 Baso % (Auto) 0.2 Lymph # (Auto) 1.23 [place] # (Auto) 0.6 Eos # (Auto) 0.1 Baso # (Auto) 0.0 Abs Immat Gran (auto) 0.02 Absolute Neuts (auto) 4.2 Absolute Nucleated RBC 0.000 Nucleated RBC % 0.0 Sodium 137 Potassium 3.8 3.9 Chloride 105 Carbon Dioxide 27 Anion Gap 5 BUN 16 Creatinine 1.00 Estim Creat Clear Calc 101 Estimated GFR > 60 Glucose 129 H Calcium 9.6 Total Bilirubin 0.4 AST 20 ALT 20 Alkaline Phosphatase 45 Total Protein 7.0 Albumin 3.9 Triglycerides 121 Lipase 2431 H Quality VTE Prophylaxis VTE prophylaxis: pharmacologic ordered
--- NOTE | 2024-10-24 13:13 | WPDGIPROGNO ---
Progress Note: A&P Assessment and Plan (1) Pancreatitis: Qualifiers: Chronicity: acute Pancreatitis type: unspecified pancreatitis type Acute pancreatitis complication: no infection or necrosis Qualified Code(s): K85.90 - Acute pancreatitis without necrosis or infection, unspecified Code(s): K85.90 - Acute pancreatitis without necrosis or infection, unspecified Status: Inactive Assessment and Plan: mrcp with normal bile duct and GB, interstitial pancreatitis normal liver enzymes had more abdominal pain, again on liquid diet- will monitor and advance as tolerated continue supportive care no alcohol, TG level normal (2) Nausea and vomiting: Qualifiers: Vomiting type: bilious vomiting Qualified Code(s): R11.14 - Bilious vomiting Code(s): R11.2 - Nausea with vomiting, unspecified Status: Acute Assessment and Plan: antiemetics prn (3) Generalized abdominal pain: Code(s): R10.84 - Generalized abdominal pain Status: Acute Assessment and Plan: better now (4) Melanoma: Qualifiers: Melanoma location: lower extremity including hip Laterality: left Qualified Code(s): C43.72 - Malignant melanoma of left lower limb, including hip Code(s): C43.9 - Malignant melanoma of skin, unspecified Status: Inactive Assessment and Plan: on oral medications- pain started prior to those medications Subjective Date/time seen: 10/24/24 13:13 Interval history: had more pain when she ate more consistent diet, better now on liquid diet again Review of Systems Review of Systems: All systems reviewed & are unremarkable except as noted in HPI and below Exam Const: General: comfortable and no acute distress Other: obese HENMT: Face/Nose/Sinus: Normal nares present Eyes: General: appearance normal, both eyes and all related structures Neck: Neck: supple Resp: Auscultation: clear to auscultation bilaterally Cardio: Rate: regular rate Rhythm: regular rhythm GI: Inspection: non-distended GI Palp: Yes Soft to palpation and No Tenderness to palpation present (GI) Auscultation: normal bowel sounds Skin: Other: left foot s/p skin graft Neuro: Speech: normal speech Motor exam (neuro): 5/5 motor strength present throughout Extrem: General: normal to inspection Psych: Mental Status: mental status grossly normal Objective Data Vital Signs Vital Signs: Vital Signs - 24 hr 10/23/24 16:00 10/23/24 20:15 10/23/24 21:14 Temperature 97.8 F 97.7 F Pulse Rate 73 74 Respiratory Rate 16 16 Blood Pressure 160/95 H 153/96 H Pulse Oximetry 99 100 Oxygen Delivery Room Air 10/24/24 00:52 10/24/24 06:20 10/24/24 08:00 Temperature 98.2 F 98.3 F 98.3 F Pulse Rate 97 83 47 L Respiratory Rate 14 16 18 Blood Pressure 164/85 H 147/88 H 121/67 Pulse Oximetry 96 99 99 Oxygen Delivery 10/24/24 08:26 10/24/24 12:00 Temperature 98.2 F Pulse Rate 80 Respiratory Rate 18 18 Blood Pressure 146/92 H Pulse Oximetry 99 100 Oxygen Delivery Room Air Intake/Output Intake/Output: Intake & Output 10/21/24 10/22/24 10/23/24 10/24/24 23:59 23:59 23:59 23:59 Intake Total 1999 2119 160 Balance 1999 2119 160 Meds/Results Medications: Active Medications Generic Name Dose Route Start Last Admin Trade Name Freq PRN Reason Stop Dose Admin Acetaminophen 650 mg 10/21/24 21:38 Acetaminophen 325 Mg Tablet PO Q6H PRN Mild Pain (1-3) or Fever Hydrocodone Bitart/Acetaminophen 1 tab 10/21/24 21:38 10/23/24 20:14 Hydrocodone/Acetaminophen (*Crx) 5-325 Mg Tablet PO 1 tab Q6H PRN Administration Pain Rated 4-6 Citalopram Hydrobromide 10 mg 10/22/24 09:00 10/24/24 08:25 Citalopram Hydrobromide 10 Mg Tablet PO 10 mg DAILY EDWIN Administration Enoxaparin Sodium 40 mg 10/22/24 09:00 10/24/24 08:26 Enoxaparin 40 Mg/0.4 Ml Syringe SUB-Q Not Given DAILY EDWIN Levothyroxine Sodium 100 mcg 10/22/24 06:30 10/24/24 06:25 Levothyroxine Sodium 100 Mcg Tablet PO 100 mcg DAILY@0630 EDWIN Administration Lisinopril 20 mg 10/23/24 12:20 10/24/24 08:26 Lisinopril 20 Mg Tablet PO 20 mg QAM EDWIN Administration Morphine Sulfate 4 mg 10/21/24 22:59 10/24/24 08:26 Morphine Sulfate (*Crx) 4 Mg/Ml Inj IV PUSH 4 mg Q4H PRN Administration Pain Rated 7-10 Home Med [Aurovela 1 tablet 10/22/24 09:00 10/24/24 08:28 24 Fe] 1 Mg-20 Mcg ( PO 11/21/24 08:59 Not Given 24)/75 Mg DAILY EDWIN Non-Formulary Medication 450 mg 10/23/24 21:00 10/23/24 21:45 Encorafenib [Braftovi] PO 11/22/24 20:59 450 mg HS EDWIN Administration Non-Formulary Medication 45 mg 10/23/24 21:00 10/24/24 08:26 Binimetinib [Mektovi] PO 11/22/24 20:59 45 mg 0800,2100 EDWIN Administration Ondansetron HCl 4 mg 10/21/24 21:38 Ondansetron Inj 4 Mg/2 Ml Vial IV PUSH Q6H PRN Nausea And Vomiting Pantoprazole Sodium 40 mg 10/22/24 09:00 10/24/24 08:25 Pantoprazole 40 Mg Tablet PO 40 mg Q12HR EDWIN Administration Potassium Chloride 20 meq 10/22/24 09:00 10/24/24 08:25 Potassium Chloride 20 Meq Er Tablet PO 20 meq DAILY EDWIN Administration Prednisone 20 mg 10/23/24 08:00 10/24/24 08:25 Prednisone 20 Mg Tablet PO 20 mg DAILY@0800 EDWIN Administration Radiology Results: ITS Impressions MRCP 10/22/24 16:39 IMPRESSION: 1. Acute interstitial pancreatitis. 2. No choledocholithiasis. 3. Small pleural effusions. Labs Labs: Laboratory Results - last 24 hr 10/24/24 10/24/24 05:24 05:24 WBC 6.1 RBC 3.95 L Hgb 12.6 Hct 38.4 MCV 97.2 MCH 31.9 MCHC 32.8 RDW 12.4 Plt Count 296 MPV 10.2 Immature Gran % (Auto) 0.3 Neut % (Auto) 68.8 Lymph % (Auto) 20.2 [place] % (Auto) 9.5 H Eos % (Auto) 1.0 Baso % (Auto) 0.2 Lymph # (Auto) 1.23 [place] # (Auto) 0.6 Eos # (Auto) 0.1 Baso # (Auto) 0.0 Abs Immat Gran (auto) 0.02 Absolute Neuts (auto) 4.2 Absolute Nucleated RBC 0.000 Nucleated RBC % 0.0 Sodium 137 Potassium 3.8 3.9 Chloride 105 Carbon Dioxide 27 Anion Gap 5 BUN 16 Creatinine 1.00 Estim Creat Clear Calc 101 Estimated GFR > 60 Glucose 129 H Calcium 9.6 Total Bilirubin 0.4 AST 20 ALT 20 Alkaline Phosphatase 45 Total Protein 7.0 Albumin 3.9 Triglycerides 121 Lipase 2431 H
[2024-10-24] MEDS: [UNRECOGNIZED DRUG - OTHER] PO (20:15)
[2024-10-24] MEDS: ENCORAFENIB 450 MG PO (20:15)
[2024-10-24] MEDS: HYDROcodone/acetaminophen (*CRX) 5-325 MG TABLET 1 TAB PO (22:13)
[2024-10-25] VITALS (7 sets, daily range): BP systolic 131–150; BP diastolic 69–97; PULSE 60–81; RESP 12–18; TEMP 36.1–36.9; O2SAT 99–100
[2024-10-25] MEDS: LEVOTHYROXINE SODIUM 100 MCG TABLET PO (05:57)
[2024-10-25 06:04] LABS: Basophils Percent Auto 0.2 % (0.2-1.2); Eosinophils Absolute Auto 0.1 K/mm3 (0-0.3); Eosinophils Percent Auto 1.4 % (0-4.4); Hematocrit 37.5 % (37.0-47.0); Hemoglobin 12.6 g/dL (12.0-15.0); Immature Granulocyte Absolute 0.02 K/mm3 (0.00-0.031); Immature Granulocyte Percent A 0.4 % (0-0.5); Lymphocytes Absolute Auto 2.01 K/mm3 (0.9-3.2); Lymphocytes Percent Auto 36.1 % (18.3-44.2); Mean Corpuscular HGB Conc 33.6 g/dl (32-36); Mean Corpuscular Hemoglobin 32.4 pg (26-34); Mean Corpuscular Volume 96.4 fl (80-100); Mean Platelet Volume 9.6 fl (7.4-10.4); Monocytes Absolute Auto 0.7 K/mm3 (0.1-0.6); Monocytes Percent Auto 11.8 % (2.6-8.5); Neutrophils Absolute Auto 2.8 K/mm3 (1.3-6.7); Neutrophils Percent Auto 50.1 % (45.5-73.1); Platelet Count Result 276 k/mm3 (150-375); Red Blood Count 3.89 M/mm3 (4.2-5.4); Red Cell Distribution Width 12.1 % (11.5-14.5); White Blood Count 5.6 K/mm3 (4.5-10.0)
[2024-10-25 06:17] LABS: Alanine Aminotransferase 21 U/L (6-35); Albumin Level 4.1 g/dL (3.5-5.1); Alkaline Phosphatase 47 U/L (38-126); Anion Gap 4 mmol/L (4-12); Aspartate Amino Transferase 18 U/L (14-36); Bilirubin,Total 0.5 mg/dL (0.2-1.3); Blood Urea Nitrogen 13 mg/dL (7-17); Calcium 9.9 mg/dL (8.4-10.2); Carbon Dioxide 29 mmol/L (22-30); Chloride 104 mmol/L (98-107); Estimated CRCL calculation 101 ml/min; Estimated Glomerular Filt Rate > 60; Glucose 104 mg/dL (65-110); Lipase 1861 U/L (23-300); Potassium 4.1 mmol/L (3.4-5.0); Sodium 137 mmol/L (137-145)
[2024-10-25] MEDS: POTASSIUM CHLORIDE 20 MEQ ER TABLET PO (08:15)
[2024-10-25] MEDS: CITALOPRAM HYDROBROMIDE 10 MG TABLET PO (08:15)
[2024-10-25] MEDS: lisinopriL 20 MG TABLET PO (08:16)
[2024-10-25] MEDS: predniSONE 20 MG TABLET PO (08:16)
[2024-10-25] MEDS: PANTOPRAZOLE 40 MG TABLET PO ×2 (08:16→20:30)
[2024-10-25] MEDS: [UNRECOGNIZED DRUG - OTHER] 45 EACH PO ×2 (08:17→20:31)
[2024-10-25] MEDS: SULFAMETHOXAZOLE/TRIMETHOPRIM 800/160 MG DS TABLET 1 TAB PO ×2 (11:26→20:30)
--- NOTE | 2024-10-25 11:55 | PM.IMPN ---
Progress Note: A&P Assessment and Plan (1) Pancreatitis: Qualifiers: Acute pancreatitis complication: no infection or necrosis Chronicity: acute Pancreatitis type: unspecified pancreatitis type Qualified Code(s): K85.90 - Acute pancreatitis without necrosis or infection, unspecified Code(s): K85.90 - Acute pancreatitis without necrosis or infection, unspecified Status: Inactive Assessment and Plan: - Change diet to full liquid, patient not tolerating low fat well. - Lipase trending up; [id number] - Possibly related to CA with elevated CA 19-9. - GI following. - MRCP showed normal bile duct and GB, interstitial pancreatitis. - Normal liver enzymes. - Supportive care. (2) Metastatic melanoma: Code(s): C43.9 - Malignant melanoma of skin, unspecified Status: Acute Assessment and Plan: - CA 19-9 elevated. - Continue f/u with oncologist and will call clerk. - Patient receiving oral Braftovi and Mektovi - Left branham scab came off. Patient with brownish yellow drainage. Bactrim DS 1 tab PO q 12 ordered. (3) Hypothyroidism: Code(s): E03.9 - Hypothyroidism, unspecified Status: Acute Assessment and Plan: - Continue levothyroxine. (4) Gastroesophageal reflux disease: Qualifiers: Esophagitis presence: esophagitis presence not specified Qualified Code(s): K21.9 - Gastro-esophageal reflux disease without esophagitis Code(s): K21.9 - Gastro-esophageal reflux disease without esophagitis Status: Acute Assessment and Plan: - Continue PPI. (5) Depression: Code(s): F32.A - Depression, unspecified Status: Acute Assessment and Plan: - Continue Citalopram. Subjective Date/time seen: 10/25/24 11:55 Interval history: Patient reports abdominal pain that is a 3 , frequent, and cramping. Patient not sure if pain or just gas. Patient would like a full liquid diet for lunch and if she tolerates that well she will advance to a low fat diet for supper. Patient denies nausea, vomiting, or fever. Patient reports that scab came off of site on left branham where skin cancer was removed and she had bui to yellow drainage. Patient reports being on Bactrim for drainage from leg in the past. Review of Systems Review of Systems: All systems reviewed & are unremarkable except as noted in HPI and below Exam Const: General: no acute distress and uncomfortable Neck: Neck: supple Resp: Effort & Inspection: normal respiratory effort Auscultation: clear to auscultation bilaterally Cardio: Rate: regular rate Rhythm: regular rhythm GI: Other: Inspection: non-distended GI Palp: Yes Soft to palpation, Yes Tenderness to palpation present (GI) (minimal pain today) and No Guarding due to palpation present (GI) Auscultation: normal bowel sounds Skin: Other: Left foot s/p skin graft. Left branham site where melanoma removed scab came off last night, base is pink, patient with brownish yellow drainage. Neuro: Speech: normal speech Extrem: General: no pedal edema Psych: Mental Status: mental status grossly normal Affect: normal affect Objective Data Vital Signs Vital Signs: Vital Signs - 24 hr 10/24/24 12:00 10/24/24 16:00 10/24/24 20:06 Temperature 98.2 F 97.1 F L 98.4 F Pulse Rate 80 83 93 Respiratory Rate 18 18 18 Blood Pressure 146/92 H 148/83 H 146/88 H Pulse Oximetry 100 98 95 Oxygen Delivery 10/24/24 23:28 10/25/24 04:00 10/25/24 07:57 Temperature 98.3 F 97.7 F 98.0 F Pulse Rate 80 69 75 Respiratory Rate 16 18 18 Blood Pressure 153/119 H 148/87 H 141/97 H Pulse Oximetry 100 99 100 Oxygen Delivery 10/25/24 08:17 10/25/24 11:49 Temperature 97.0 F L Pulse Rate 81 Respiratory Rate 18 18 Blood Pressure 150/80 H Pulse Oximetry 100 100 Oxygen Delivery Room Air Intake/Output Intake/Output: Intake & Output 10/22/24 10/23/24 10/24/24 10/25/24 23:59 23:59 23:59 23:59 Intake Total 1999 Balance 1999 Meds/Results Medications: Active Medications Generic Name Dose Route Start Last Admin Trade Name Freq PRN Reason Stop Dose Admin Acetaminophen 650 mg 10/21/24 21:38 Acetaminophen 325 Mg Tablet PO Q6H PRN Mild Pain (1-3) or Fever Hydrocodone Bitart/Acetaminophen 1 tab 10/21/24 21:38 10/24/24 22:13 Hydrocodone/Acetaminophen (*Crx) 5-325 Mg Tablet PO 1 tab Q6H PRN Administration Pain Rated 4-6 Citalopram Hydrobromide 10 mg 10/22/24 09:00 10/25/24 08:15 Citalopram Hydrobromide 10 Mg Tablet PO 10 mg DAILY EDWIN Administration Enoxaparin Sodium 40 mg 10/22/24 09:00 10/25/24 08:16 Enoxaparin 40 Mg/0.4 Ml Syringe SUB-Q Not Given DAILY EDWIN Levothyroxine Sodium 100 mcg 10/22/24 06:30 10/25/24 05:57 Levothyroxine Sodium 100 Mcg Tablet PO 100 mcg DAILY@0630 EDWIN Administration Lisinopril 20 mg 10/23/24 12:20 10/25/24 08:16 Lisinopril 20 Mg Tablet PO 20 mg QAM EDWNI Administration Morphine Sulfate 4 mg 10/21/24 22:59 10/24/24 08:26 Morphine Sulfate (*Crx) 4 Mg/Ml Inj IV PUSH 4 mg Q4H PRN Administration Pain Rated 7-10 Home Med [Aurovela 1 tablet 10/22/24 09:00 10/25/24 08:16 24 Fe] 1 Mg-20 Mcg ( PO 11/21/24 08:59 Not Given 24)/75 Mg DAILY EDWIN Non-Formulary Medication 450 mg 10/23/24 21:00 10/24/24 20:15 Encorafenib [Braftovi] PO 11/22/24 20:59 450 mg HS EDWIN Administration Non-Formulary Medication 45 mg 10/23/24 21:00 10/25/24 08:17 Binimetinib [Mektovi] PO 11/22/24 20:59 45 mg 0800,2100 EDWIN Administration Ondansetron HCl 4 mg 10/21/24 21:38 Ondansetron Inj 4 Mg/2 Ml Vial IV PUSH Q6H PRN Nausea And Vomiting Pantoprazole Sodium 40 mg 10/22/24 09:00 10/25/24 08:16 Pantoprazole 40 Mg Tablet PO 40 mg Q12HR EDWIN Administration Potassium Chloride 20 meq 10/22/24 09:00 10/25/24 08:15 Potassium Chloride 20 Meq Er Tablet PO 20 meq DAILY EDWIN Administration Prednisone 20 mg 10/23/24 08:00 10/25/24 08:16 Prednisone 20 Mg Tablet PO 20 mg DAILY@0800 EDWIN Administration Trimethoprim/Sulfamethoxazole 1 tab 10/25/24 11:00 10/25/24 11:26 Sulfamethoxazole/Trimethoprim 800/160 Mg Ds Tablet PO 10/31/24 21:01 1 tab Q12HR EDWIN Administration Radiology Results: ITS Impressions MRCP 10/22/24 16:39 IMPRESSION: 1. Acute interstitial pancreatitis. 2. No choledocholithiasis. 3. Small pleural effusions. Labs Labs: Laboratory Results - last 24 hr 10/25/24 05:45 WBC 5.6 RBC 3.89 L Hgb 12.6 Hct 37.5 MCV 96.4 MCH 32.4 MCHC 33.6 RDW 12.1 Plt Count 276 MPV 9.6 Immature Gran % (Auto) 0.4 Neut % (Auto) 50.1 Lymph % (Auto) 36.1 [place] % (Auto) 11.8 H Eos % (Auto) 1.4 Baso % (Auto) 0.2 Lymph # (Auto) 2.01 [place] # (Auto) 0.7 H Eos # (Auto) 0.1 Baso # (Auto) 0.0 Abs Immat Gran (auto) 0.02 Absolute Neuts (auto) 2.8 Absolute Nucleated RBC 0.000 Nucleated RBC % 0.0 Sodium 137 Potassium 4.1 Chloride 104 Carbon Dioxide 29 Anion Gap 4 BUN 13 Creatinine 1.00 Estim Creat Clear Calc 101 Estimated GFR > 60 Glucose 104 Calcium 9.9 Total Bilirubin 0.5 AST 18 ALT 21 Alkaline Phosphatase 47 Total Protein 7.0 Albumin 4.1 Lipase 1861 H Quality VTE Prophylaxis VTE prophylaxis: pharmacologic ordered
--- NOTE | 2024-10-25 13:01 | WPDGIPROGNO ---
Progress Note: A&P Assessment and Plan (1) Pancreatitis: Qualifiers: Chronicity: acute Pancreatitis type: unspecified pancreatitis type Acute pancreatitis complication: no infection or necrosis Qualified Code(s): K85.90 - Acute pancreatitis without necrosis or infection, unspecified Code(s): K85.90 - Acute pancreatitis without necrosis or infection, unspecified Status: Inactive Assessment and Plan: mrcp with normal bile duct and GB, interstitial pancreatitis tolerating more diet again and less pain continue supportive care hopefully home soon (2) Nausea and vomiting: Qualifiers: Vomiting type: bilious vomiting Qualified Code(s): R11.14 - Bilious vomiting Code(s): R11.2 - Nausea with vomiting, unspecified Status: Acute Assessment and Plan: antiemetics prn (3) Generalized abdominal pain: Code(s): R10.84 - Generalized abdominal pain Status: Acute Assessment and Plan: better now (4) Melanoma: Qualifiers: Melanoma location: lower extremity including hip Laterality: left Qualified Code(s): C43.72 - Malignant melanoma of left lower limb, including hip Code(s): C43.9 - Malignant melanoma of skin, unspecified Status: Inactive Assessment and Plan: on oral treatment for melanoma- pain started prior to those medications Subjective Date/time seen: 10/25/24 13:01 Interval history: she had prydeinig toast for breakfast, less pain and slowly feeling better Review of Systems Review of Systems: All systems reviewed & are unremarkable except as noted in HPI and below Exam Const: General: comfortable and no acute distress Other: obese HENMT: Face/Nose/Sinus: Normal nares present Eyes: General: appearance normal, both eyes and all related structures Neck: Neck: supple Resp: Auscultation: clear to auscultation bilaterally Cardio: Rate: regular rate Rhythm: regular rhythm GI: Inspection: non-distended GI Palp: Yes Soft to palpation, Yes Tenderness to palpation present (GI) (minimal pain today) and No Guarding due to palpation present (GI) Auscultation: normal bowel sounds Skin: Other: left foot s/p skin graft Neuro: Speech: normal speech Motor exam (neuro): 5/5 motor strength present throughout Extrem: General: normal to inspection Psych: Mental Status: mental status grossly normal Objective Data Vital Signs Vital Signs: Vital Signs - 24 hr 10/24/24 16:00 10/24/24 20:06 10/24/24 23:28 Temperature 97.1 F L 98.4 F 98.3 F Pulse Rate 83 93 80 Respiratory Rate 18 18 16 Blood Pressure 148/83 H 146/88 H 153/119 H Pulse Oximetry 98 95 100 Oxygen Delivery 10/25/24 04:00 10/25/24 07:57 10/25/24 08:17 Temperature 97.7 F 98.0 F Pulse Rate 69 75 Respiratory Rate 18 18 18 Blood Pressure 148/87 H 141/97 H Pulse Oximetry 99 100 100 Oxygen Delivery Room Air 10/25/24 11:49 Temperature 97.0 F L Pulse Rate 81 Respiratory Rate 18 Blood Pressure 150/80 H Pulse Oximetry 100 Oxygen Delivery Intake/Output Intake/Output: Intake & Output 10/22/24 10/23/24 10/24/24 10/25/24 23:59 23:59 23:59 23:59 Intake Total 1999 2119 2079 620 Balance 1999 2119 2079 620 Meds/Results Medications: Active Medications Generic Name Dose Route Start Last Admin Trade Name Freq PRN Reason Stop Dose Admin Acetaminophen 650 mg 10/21/24 21:38 Acetaminophen 325 Mg Tablet PO Q6H PRN Mild Pain (1-3) or Fever Hydrocodone Bitart/Acetaminophen 1 tab 10/21/24 21:38 10/24/24 22:13 Hydrocodone/Acetaminophen (*Crx) 5-325 Mg Tablet PO 1 tab Q6H PRN Administration Pain Rated 4-6 Citalopram Hydrobromide 10 mg 10/22/24 09:00 10/25/24 08:15 Citalopram Hydrobromide 10 Mg Tablet PO 10 mg DAILY EDWIN Administration Enoxaparin Sodium 40 mg 10/22/24 09:00 10/25/24 08:16 Enoxaparin 40 Mg/0.4 Ml Syringe SUB-Q Not Given DAILY EDWIN Levothyroxine Sodium 100 mcg 10/22/24 06:30 10/25/24 05:57 Levothyroxine Sodium 100 Mcg Tablet PO 100 mcg DAILY@0630 EDWIN Administration Lisinopril 20 mg 10/23/24 12:20 10/25/24 08:16 Lisinopril 20 Mg Tablet PO 20 mg QAM EDWIN Administration Morphine Sulfate 4 mg 10/21/24 22:59 10/24/24 08:26 Morphine Sulfate (*Crx) 4 Mg/Ml Inj IV PUSH 4 mg Q4H PRN Administration Pain Rated 7-10 Home Med [Aurovela 1 tablet 10/22/24 09:00 10/25/24 08:16 24 Fe] 1 Mg-20 Mcg ( PO 11/21/24 08:59 Not Given 24)/75 Mg DAILY EDWIN Non-Formulary Medication 450 mg 10/23/24 21:00 10/24/24 20:15 Encorafenib [Braftovi] PO 11/22/24 20:59 450 mg HS EDWIN Administration Non-Formulary Medication 45 mg 10/23/24 21:00 10/25/24 08:17 Binimetinib [Mektovi] PO 11/22/24 20:59 45 mg 0800,2100 EDWIN Administration Ondansetron HCl 4 mg 10/21/24 21:38 Ondansetron Inj 4 Mg/2 Ml Vial IV PUSH Q6H PRN Nausea And Vomiting Pantoprazole Sodium 40 mg 10/22/24 09:00 10/25/24 08:16 Pantoprazole 40 Mg Tablet PO 40 mg Q12HR EDWIN Administration Potassium Chloride 20 meq 10/22/24 09:00 10/25/24 08:15 Potassium Chloride 20 Meq Er Tablet PO 20 meq DAILY EDWIN Administration Prednisone 20 mg 10/23/24 08:00 10/25/24 08:16 Prednisone 20 Mg Tablet PO 20 mg DAILY@0800 EDWIN Administration Trimethoprim/Sulfamethoxazole 1 tab 10/25/24 11:00 10/25/24 11:26 Sulfamethoxazole/Trimethoprim 800/160 Mg Ds Tablet PO 10/31/24 21:01 1 tab Q12HR EDWIN Administration Radiology Results: ITS Impressions MRCP 10/22/24 16:39 IMPRESSION: 1. Acute interstitial pancreatitis. 2. No choledocholithiasis. 3. Small pleural effusions. Labs Labs: Laboratory Results - last 24 hr 10/25/24 05:45 WBC 5.6 RBC 3.89 L Hgb 12.6 Hct 37.5 MCV 96.4 MCH 32.4 MCHC 33.6 RDW 12.1 Plt Count 276 MPV 9.6 Immature Gran % (Auto) 0.4 Neut % (Auto) 50.1 Lymph % (Auto) 36.1 [place] % (Auto) 11.8 H Eos % (Auto) 1.4 Baso % (Auto) 0.2 Lymph # (Auto) 2.01 [place] # (Auto) 0.7 H Eos # (Auto) 0.1 Baso # (Auto) 0.0 Abs Immat Gran (auto) 0.02 Absolute Neuts (auto) 2.8 Absolute Nucleated RBC 0.000 Nucleated RBC % 0.0 Sodium 137 Potassium 4.1 Chloride 104 Carbon Dioxide 29 Anion Gap 4 BUN 13 Creatinine 1.00 Estim Creat Clear Calc 101 Estimated GFR > 60 Glucose 104 Calcium 9.9 Total Bilirubin 0.5 AST 18 ALT 21 Alkaline Phosphatase 47 Total Protein 7.0 Albumin 4.1 Lipase 1861 H
[2024-10-25] MEDS: HYDROcodone/acetaminophen (*CRX) 5-325 MG TABLET 1 TAB PO (20:29)
[2024-10-25] MEDS: ENCORAFENIB 450 MG PO (20:31)
[2024-10-25] MEDS: [UNRECOGNIZED DRUG - OTHER] PO (20:31)
[2024-10-26 04:00] VITALS: BP 152/99; PULSE 66; RESP 16; TEMP 36.5; O2SAT 100
[2024-10-26] MEDS: HYDROcodone/acetaminophen (*CRX) 5-325 MG TABLET 1 TAB PO (05:53)
[2024-10-26] MEDS: LEVOTHYROXINE SODIUM 100 MCG TABLET PO (05:53)
[2024-10-26 06:04] LABS: Basophils Percent Auto 0.1 % (0.2-1.2); Eosinophils Absolute Auto 0.1 K/mm3 (0-0.3); Eosinophils Percent Auto 1.4 % (0-4.4); Hematocrit 38.7 % (37.0-47.0); Hemoglobin 13.2 g/dL (12.0-15.0); Immature Granulocyte Absolute 0.02 K/mm3 (0.00-0.031); Immature Granulocyte Percent A 0.3 % (0-0.5); Lymphocytes Absolute Auto 2.08 K/mm3 (0.9-3.2); Lymphocytes Percent Auto 29.1 % (18.3-44.2); Mean Corpuscular HGB Conc 34.1 g/dl (32-36); Mean Corpuscular Volume 93.9 fl (80-100); Mean Platelet Volume 9.7 fl (7.4-10.4); Monocytes Absolute Auto 0.6 K/mm3 (0.1-0.6); Monocytes Percent Auto 8.2 % (2.6-8.5); Neutrophils Absolute Auto 4.4 K/mm3 (1.3-6.7); Neutrophils Percent Auto 60.9 % (45.5-73.1); Platelet Count Result 294 k/mm3 (150-375); Red Blood Count 4.12 M/mm3 (4.2-5.4); Red Cell Distribution Width 12.1 % (11.5-14.5); White Blood Count 7.2 K/mm3 (4.5-10.0)
[2024-10-26 06:51] LABS: Alanine Aminotransferase 21 U/L (6-35); Alkaline Phosphatase 46 U/L (38-126); Anion Gap 7 mmol/L (4-12); Aspartate Amino Transferase 18 U/L (14-36); Bilirubin,Total 0.4 mg/dL (0.2-1.3); Blood Urea Nitrogen 17 mg/dL (7-17); Calcium 9.6 mg/dL (8.4-10.2); Carbon Dioxide 27 mmol/L (22-30); Chloride 104 mmol/L (98-107); Estimated CRCL calculation 101 ml/min; Estimated Glomerular Filt Rate > 60; Glucose 102 mg/dL (65-110); Potassium 3.6 mmol/L (3.4-5.0); Sodium 138 mmol/L (137-145)
[2024-10-26 07:43] LABS: Lipase 2236 U/L (23-300)
[2024-10-26 08:00] VITALS: BP 151/97; PULSE 107; RESP 12; TEMP 36.2; O2SAT 99
[2024-10-26] MEDS: CITALOPRAM HYDROBROMIDE 10 MG TABLET PO (09:40)
[2024-10-26] MEDS: PANTOPRAZOLE 40 MG TABLET PO ×2 (09:40→20:45)
[2024-10-26] MEDS: predniSONE 20 MG TABLET PO (09:40)
[2024-10-26] MEDS: POTASSIUM CHLORIDE 20 MEQ ER TABLET PO (09:40)
[2024-10-26] MEDS: SULFAMETHOXAZOLE/TRIMETHOPRIM 800/160 MG DS TABLET 1 TAB PO ×2 (09:40→20:42)
[2024-10-26] MEDS: lisinopriL 20 MG TABLET PO (09:40)
[2024-10-26] MEDS: MORPHINE SULFATE (*CRX) 4 MG/ML INJ IV PUSH (09:41)
[2024-10-26] MEDS: [UNRECOGNIZED DRUG - OTHER] 45 EACH PO ×2 (09:43→20:46)
[2024-10-26 12:00] VITALS: BP 134/90; PULSE 106; RESP 12; TEMP 36.6; O2SAT 98
--- NOTE | 2024-10-26 12:04 | P.PNIM_ITS ---
Progress Note: A&P Assessment and Plan (1) Pancreatitis: Qualifiers: Acute pancreatitis complication: no infection or necrosis Chronicity: acute Pancreatitis type: unspecified pancreatitis type Qualified Code(s): K85.90 - Acute pancreatitis without necrosis or infection, unspecified Code(s): K85.90 - Acute pancreatitis without necrosis or infection, unspecified Status: Inactive Assessment and Plan: - diet low fat - Lipase trending up; [id number] - Possibly related to CA with elevated CA 19-9. - GI following. - MRCP showed normal bile duct and GB, interstitial pancreatitis. - Normal liver enzymes. - Supportive care. (2) Metastatic melanoma: Code(s): C43.9 - Malignant melanoma of skin, unspecified Status: Acute Assessment and Plan: - CA 19-9 elevated. - Continue f/u with oncologist and used car sales supervisor. - Patient receiving oral Braftovi and Mektovi - Left branham scab came off. Patient with brownish yellow drainage. Bactrim DS 1 tab PO q 12 ordered. (3) Hypothyroidism: Code(s): E03.9 - Hypothyroidism, unspecified Status: Acute Assessment and Plan: - Continue levothyroxine. (4) Gastroesophageal reflux disease: Qualifiers: Esophagitis presence: esophagitis presence not specified Qualified Code(s): K21.9 - Gastro-esophageal reflux disease without esophagitis Code(s): K21.9 - Gastro-esophageal reflux disease without esophagitis Status: Acute Assessment and Plan: - Continue PPI. (5) Depression: Code(s): F32.A - Depression, unspecified Status: Acute Assessment and Plan: - Continue Citalopram. Subjective Date/time seen: 10/26/24 12:04 Interval history: Patient reports pain in abdomen that is a 4 with cramping and stabbing at times. Patient denies nausea, vomiting, headache, or dizziness. Review of Systems Review of Systems: All systems reviewed & are unremarkable except as noted in HPI and below Exam Const: General: no acute distress and uncomfortable Eyes: Sclera: sclerae normal Resp: Effort & Inspection: normal respiratory effort Auscultation: clear to auscultation bilaterally Cardio: Rate: regular rate Rhythm: regular rhythm GI: GI Palp: Yes Soft to palpation, Yes Tenderness to palpation present (GI) a nd No Guarding due to palpation present (GI) Auscultation: normal bowel sounds Skin: Other: Left foot s/p skin graft. Left branham melanoma area removed is starting to scab up and fill back in, no drainage. Neuro: Speech: normal speech Extrem: General: no pedal edema Psych: Mental Status: mental status grossly normal Affect: normal affect Objective Data Vital Signs Vital Signs: Vital Signs - 24 hr 10/25/24 16:00 10/25/24 20:00 10/25/24 23:27 Temperature 98.5 F 97.7 F 97.6 F Pulse Rate 70 63 60 Respiratory Rate 18 16 12 Blood Pressure 141/80 H 139/85 131/69 Pulse Oximetry 100 99 100 Oxygen Delivery 10/26/24 04:00 10/26/24 08:00 10/26/24 09:45 Temperature 97.7 F 97.1 F L Pulse Rate 66 107 H Respiratory Rate 16 12 Blood Pressure 152/99 H 151/97 H Pulse Oximetry 100 99 Oxygen Delivery Room Air Intake/Output Intake/Output: Intake & Output 10/23/24 10/24/24 10/25/24 10/26/24 23:59 23:59 23:59 23:59 Intake Total 2119 2079 1550 400 Output Total 300 Balance 2119 2079 1550 100 Meds/Results Medications: Active Medications Generic Name Dose Route Start Last Admin Trade Name Freq PRN Reason Stop Dose Admin Acetaminophen 650 mg 10/21/24 21:38 Acetaminophen 325 Mg Tablet PO Q6H PRN Mild Pain (1-3) or Fever Hydrocodone Bitart/Acetaminophen 1 tab 10/21/24 21:38 10/26/24 05:53 Hydrocodone/Acetaminophen (*Crx) 5-325 Mg Tablet PO 1 tab Q6H PRN Administration Pain Rated 4-6 Citalopram Hydrobromide 10 mg 10/22/24 09:00 10/26/24 09:40 Citalopram Hydrobromide 10 Mg Tablet PO 10 mg DAILY EDWIN Administration Enoxaparin Sodium 40 mg 10/22/24 09:00 10/26/24 09:41 Enoxaparin 40 Mg/0.4 Ml Syringe SUB-Q Not Given DAILY EDWIN Levothyroxine Sodium 100 mcg 10/22/24 06:30 10/26/24 05:53 Levothyroxine Sodium 100 Mcg Tablet PO 100 mcg DAILY@0630 EDWIN Administration Lisinopril 20 mg 10/23/24 12:20 10/26/24 09:40 Lisinopril 20 Mg Tablet PO 20 mg QAM EDWIN Administration Morphine Sulfate 4 mg 10/21/24 22:59 10/26/24 09:41 Morphine Sulfate (*Crx) 4 Mg/Ml Inj IV PUSH 4 mg Q4H PRN Administration Pain Rated 7-10 Home Med [Aurovela 1 tablet 10/22/24 09:00 10/26/24 09:43 24 Fe] 1 Mg-20 Mcg ( PO 11/21/24 08:59 Not Given 24)/75 Mg DAILY EDWIN Non-Formulary Medication 450 mg 10/23/24 21:00 10/25/24 20:31 Encorafenib [Braftovi] PO 11/22/24 20:59 450 mg HS EDWIN Administration Non-Formulary Medication 45 mg 10/23/24 21:00 10/26/24 09:43 Binimetinib [Mektovi] PO 11/22/24 20:59 45 mg 0800,2100 EDWIN Administration Ondansetron HCl 4 mg 10/21/24 21:38 Ondansetron Inj 4 Mg/2 Ml Vial IV PUSH Q6H PRN Nausea And Vomiting Pantoprazole Sodium 40 mg 10/22/24 09:00 10/26/24 09:40 Pantoprazole 40 Mg Tablet PO 40 mg Q12HR EDWIN Administration Potassium Chloride 20 meq 10/22/24 09:00 10/26/24 09:40 Potassium Chloride 20 Meq Er Tablet PO 20 meq DAILY EDWIN Administration Prednisone 20 mg 10/23/24 08:00 10/26/24 09:40 Prednisone 20 Mg Tablet PO 20 mg DAILY@0800 EDWIN Administration Trimethoprim/Sulfamethoxazole 1 tab 10/25/24 11:00 10/26/24 09:40 Sulfamethoxazole/Trimethoprim 800/160 Mg Ds Tablet PO 10/31/24 21:01 1 tab Q12HR EDWIN Administration Radiology Results: ITS Impressions MRCP 10/22/24 16:39 IMPRESSION: 1. Acute interstitial pancreatitis. 2. No choledocholithiasis. 3. Small pleural effusions. Labs Labs: Laboratory Results - last 24 hr 10/26/24 05:44 WBC 7.2 RBC 4.12 L Hgb 13.2 Hct 38.7 MCV 93.9 MCH 32.0 MCHC 34.1 RDW 12.1 Plt Count 294 MPV 9.7 Immature Gran % (Auto) 0.3 Neut % (Auto) 60.9 Lymph % (Auto) 29.1 [place] % (Auto) 8.2 Eos % (Auto) 1.4 Baso % (Auto) 0.1 L Lymph # (Auto) 2.08 [place] # (Auto) 0.6 Eos # (Auto) 0.1 Baso # (Auto) 0.0 Abs Immat Gran (auto) 0.02 Absolute Neuts (auto) 4.4 Absolute Nucleated RBC 0.000 Nucleated RBC % 0.0 Sodium 138 Potassium 3.6 Chloride 104 Carbon Dioxide 27 Anion Gap 7 BUN 17 Creatinine 1.00 Estim Creat Clear Calc 101 Estimated GFR > 60 Glucose 102 Calcium 9.6 Total Bilirubin 0.4 AST 18 ALT 21 Alkaline Phosphatase 46 Total Protein 7.0 Albumin 4.0 Lipase 2236 H Quality VTE Prophylaxis VTE prophylaxis: pharmacologic ordered
[2024-10-26 16:00] VITALS: BP 142/70; PULSE 95; RESP 20; TEMP 36.8; O2SAT 100
[2024-10-26 20:00] VITALS: BP 145/74; PULSE 70; RESP 16; TEMP 37.4; O2SAT 99
[2024-10-26] MEDS: [UNRECOGNIZED DRUG - OTHER] PO (20:46)
[2024-10-26] MEDS: ENCORAFENIB 450 MG PO (20:46)
[2024-10-26 23:42] VITALS: BP 131/79; PULSE 69; RESP 20; TEMP 36.4; O2SAT 99
--- OUTSIDE RECORDS SUMMARY | 2024-10-27 02:41 | XMS_ITS | Encounter Summary ---
Author Organization [facility] Address [address] [facility] [place] [address] Care Team Providers Care Service Station Attendant Name Role Phone Priya Sprague MD Primary Care Provider [phone] Reason for Visit * Reason Comments Imm Inj Encounter Details Date Type Department Care Team (Latest Contact Info) Description 09/13/2014 3:50 PM ZOO DIRECTOR Clinical Support [facility] Medical [facility] - Pediatrics [address] [place] [phone] Need for prophylactic vaccination and inoculation against [...] diseases documented in this encounter Care Teams Service Station Attendant Relationship Specialty Start Date End Date Priya Sprague MD PCP - General Pediatrics 09/13/14 documented as of this encounter
--- OUTSIDE RECORDS SUMMARY | 2024-10-27 02:41 | XMS_ITS | Encounter Summary ---
Author Organization [facility] Address [address] [facility] [place] [address] Care Team Providers Care Guidance Secretary Name Role Phone Priya Sprague MD Primary Care Provider [phone] Reason for Visit * Reason Comments Swelling right side of jaw x1 month Encounter Details Date Type Department Care Team (Late st Contact Info) Description 07/26/2016 9:20 AM CDT Office Visit [facility] Medical [facility] - Pediatrics [address] [place] [address] 6 [place] [address] Mindi Collazo DO [address] [place] [phone] Mass (Primary Dx) Social History Tobacco [...] noticeable. Energy level sleeps more than before. [place] this was more school. No rashes. No [...] Where can I go for more information? [place] Academy of Pediatrics ( ) www.aap.org HealthyChildren.org www.healthychildren.org U.S. Department of Health and Human Services www.hhs.gov Website and free downloadable taylor for ObjectFXs: http://www.MOG/ Use safety retraint in car Lifestyle On [...] PM CDT Narrative Resulting Agency Comment [facility] [address] ??[facility] [phone] Mindi Collazo DO LAB - SEROLOGY ORDERABLES [facility] INSURANCE BILL [address] [facility] [place] [address] * (ABNORMAL) MARLIN-MORAES VIRUS PANEL (07/26/2016 9:50 [...] PM CDT Narrative Resulting Agency Comment [facility] [address] ??[facility] [phone] Mindi Collazo DO LAB - CHEMISTRY ORDERABLES [facility] INSURANCE BILL [address] [place] [address] * (ABNORMAL) COMPREHENSIVE METABOLIC PANEL (07/26/2016 9:50 [...] PM CDT Narrative Resulting Agency Comment [facility] [address] ??[facility] [phone] Mindi Collazo DO LAB - CHEMISTRY ORDERABLES [facility] INSURANCE BILL [address] [place] [address] * CBC W AUTO DIFFERENTIAL (07/26/2016 9:50 [...] PM CDT Narrative Resulting Agency Comment [facility] [address] [facility] ??[facility] [phone] Mindi Collazo DO LAB - HEMATOLOG Y ORDERABLES Performing Organization Address [facility] Co de Phone Number [facility] INSURANCE BILL [address] [place] [address] * BARTONELLA HENSELAE ANTIBODY PANEL (07/26/2016 9:50 AM CDT) Bartonella henselae Antibody IgG Negative Neg:<1:32 0 titer [facility] INSURANCE BILL Bartonella henselae Antibody IgM Negative Neg:<1:10 0 titer [facility] INSURANCE BILL Comment: Results for this test are for research purposes only by the assay's health care legal assistant. ??The performance characteristics of this product have not been established. ??Results should not be used as a diagnostic procedure without confirmation of the diagnosis by another medically established diagnostic product or procedure. Blood specimen (specimen) BLOOD SPECIMEN / Unknown 07/26/2016 9:50 AM CDT 07/26/2016 1:00 PM CDT Narrative Resulting Agency Comment [facility] [address] ??[facility] [phone] Mindi Collazo DO LAB - SEROLOGY ORDERABLES Performing Organization Address City/[facility] Co de Phone Number [facility] INSURANCE BILL [address] [place] [address] documented in this encounter Visit Diagnoses Diagnosis Mass- Primary Localized superficial swelling, mass, or lump documented in this encounter Care Teams Guidance Secretary Relationship Specialty Start Date End Date Priya Sprague MD PCP - General Pediatrics 09/13/14 documented as of this encounter
--- OUTSIDE RECORDS SUMMARY | 2024-10-27 02:41 | XMS_ITS | Encounter Summary ---
Author Organization [facility] Address [address] [place] [address] Care Team Providers Care Medical Staff Services Coordinator Name Role Phone Priya Sprague MD Primary Care Provider [phone] Reason for Visit * Reason Comments Pain Tailbone Encounter Details Date Type Department Care Team (Late st Contact Info) Description 04/10/2018 10:30 AM CDT Office Visit [facility] - Pediatrics [address] [place] [phone] Sudeep Gloria DO [address] [place] [phone] Coccygeal pain (Primary Dx) Social History [...] Where can I go for more information? [place] Island[place] Academy of Pediatrics ( ) www.aap.org HealthyChildren.org www.healthychildren.org U.S. Department of Health and Human Services www.hhs.gov Website and free downloadable taylor for smartphones: http://www.Crowdasaurus/ Use safety retraint in car Lifestyle On track( 016 10:41 AM CDT) No Kiana Shaw RN documented as of this encounter Visit Diagnoses Diagnosis Coccygeal pain- Primary Other disorder of coccyx documented in this encounter Care Teams Medical Staff Services Coordinator Relationship Specialty Start Date End Date Priya Sprague MD PCP - General Pediatrics 09/13/14 documented as of this encounter
--- OUTSIDE RECORDS SUMMARY | 2024-10-27 02:41 | XMS_ITS | Encounter Summary ---
Author Organization [facility] Address [address] [facility] [place] [address] Care Team Providers Care Party Demonstrator Name Role Phone Unavailable Primary Care Provider Unavailabl e Reason for Visit * Reason Comments Complete Physical Exam Encounter Details Date Type Department Care Team (Late st Contact Info) Description 04/19/2011 2:30 PM CDT Office Visit [facility] Medical [facility] - Pediatrics [address] [place] [phone] Terrie Anderson MD [address] [place] [address] Routine infant or child health [...] 04/19/2011 3:1 1 PM CDT Growth Chart[facility] (Girls, 2- 20 Years) documented in this [...] BMI-for-age. 98.52% of growth percentile based on livntg-rkp-nll. 92.87% of growth percentile based on fwqnhuq-xki-dnk. IMMUNIZATIONS At the time of high school [...] Seat belt yes Wears a helment: no [place] teeth twice per day: sometimes she forgets [...] age Need for prophylactic vaccination with combined cngorxprnm-uphgtdj-ytcwckcna (DTP) vaccine Obesity Obesity, unspecified documented in this encounter
--- OUTSIDE RECORDS SUMMARY | 2024-10-27 02:41 | XMS_ITS | Encounter Summary ---
Author Organization [facility] Address [address] [facility] [place] [address] Care Team Providers Care Tower Observer Name Role Phone Priya Sprague MD Primary Care Provider [phone] Encounter Details Date Type Department Care Team (Late st Contact Info) Description 07/26/2016 Orders Only [facility] Medical [facility] - Pediatrics [address] [place] [phone] [place] [address] [place] [phone] Social History Tobacco Use Types Packs/Day [...] Where can I go for more information? Martiniquais Academy of Pediatrics ( ) www.aap.org HealthyChildren.org www.healthychildren.org U.S. Department of Health and Human Services www.hhs.gov Website and free downloadable taylor for SenseHere Technologys: http://www.Yazino/ Use safety retraint in car Lifestyle On [...] PM CDT Narrative Resulting Agency Comment [facility] [place] [address] ??[facility] [phone] Sudeep Gloria DO LAB - CHEMISTRY ORDERABLES [facility] INSURANCE BILL [address] [place] [address] * (ABNORMAL) LIPID PROFILE (07/26/2016 9:50 AM [...] PM CDT Narrative Resulting Agency Comment [facility] [place] [address] [facility] ??[facility] [phone] Sudeep Gloria DO LAB - CHEMISTRY ORDERABLES [facility] INSURANCE BILL [address] [place] [address] documented in this encounter Visit Diagnoses Not on filedocumented in this encounter Care Teams Tower Observer Relationship Specialty Start Date End Date Priya Sprague MD PCP - General Pediatrics 09/13/14 documented as of this encounter
--- OUTSIDE RECORDS SUMMARY | 2024-10-27 02:41 | XMS_ITS | Clinical Summary ---
Author Organization [facility] Address [address] [facility] [place] [address] Care Team Providers Care Copier And Printer Field Technician Name Role Phone Priya Sprague MD Primary Care Provider [phone] Haja Garcia MD Unavailable Source Comments [facility],non-owned Affiliates and Associated Physician Practices is amultiple site organization consisting of ambulatory clinics and hospital sitesin [place], [place], [place] and [place]. This disclosure is being madepursuant to the Care Everywhere program and may not contain all information available regarding this patient. Last updated 18.[facility] Allergies No known active allergies Medications Be [...] Where can I go for more information? [place] Academy of Pediatrics ( ) www.aap.org HealthyChildren.org www.healthychildren.org U.S. Department of Health and Human Services www.hhs.gov Website and free downloadable taylor for smartphones: http://www.Orpheus Media Research/ Use safety retraint in car Lifestyle On track( 016 10:41 AM CDT) No Kiana Shaw RN Care Teams Copier And Printer Field Technician Relationship Specialty Start Date End Date Priya Sprague MD PCP - General Pediatrics 09/13/14 Haja Garcia MD [address] [facility] [address] [place] [address] [phone] PCP - Attributed-[facility] [place] [facility] [place] 09/07/23
--- OUTSIDE RECORDS SUMMARY | 2024-10-27 02:41 | XMS_ITS | Referral Summary ---
Author Organization [facility] Address [address] [facility] [place] [address] Care Team Providers Care Hand Spray Operator Name Role Phone Priya Sprague MD Primary Care Provider [phone] Haja Garcia MD Unavailable Source Comments [facility],non-owned Affiliates and Associated Physician Practices is amultiple site organization consisting of ambulatory clinics and hospital sitesin [place], [place], [place] and [place]. This disclosure is being madepursuant to the Care Everywhere program and may not contain all information available regarding this patient. Last updated 18.[facility] Allergies No known active allergies Medications Be [...] Where can I go for more information? E[place] Academy of Pediatrics ( ) www.aap.org HealthyChildren.org www.healthychildren.org U.S. Department of Health and Human Services www.BRAND-YOURSELF.gov Website and free downloadable taylor for smartphones: http://www.Trivop/ Use safety retraint in car Lifestyle On track( 016 10:41 AM CDT) No Yohana-Kiana Horn RN Care Teams Hand Spray Operator Relationship Specialty Start Date End Date Priya Sprague MD PCP - General Pediatrics 09/13/14 Haja Garcia MD [address] [facility] [address] [place] [address] PCP - Attributed-[facility] [place] 09/07/23
--- OUTSIDE RECORDS SUMMARY | 2024-10-27 02:41 | XMS_ITS | Patient Health Summary ---
Author Organization [facility] Address [address] [facility] [place] [address] Care Team Providers Care Health Care Attorney Name Role Phone Priya Sprague MD Primary Care Provider [phone] Haja Garcia MD Unavailable Note from [facility],non-owned Affiliates and Associated Physician Practices is amultiple site organization consisting of ambulatory clinics and hospital sitesin [place], [place], [place] and [place]. This disclosure is being madepursuant to the Care Everywhere program and may not contain all information available regarding this patient. Last updated 18.[facility] Allergies No known active allergies Medications Be [...] henselae Antibody IgM Negative Neg:<1:10 0 titer [facility] Comment: Results for this test are for research purposes only by the assay's title curator. ??The performance characteristics of this product have not been established. ??Results should not be used as a diagnostic procedure without confirmation of the diagnosis by another medically established diagnostic product or procedure. Blood specimen (specimen) BLOOD SPECIMEN / Unknown 07/26/2016 9:50 AM CDT 07/26/2016 1:00 PM CDT Narrative Resulting Agency Comment [address] ??[facility] [phone] Sudeep Gloria DO LAB - SEROLOGY ORDERABLES [facility] INSURANCE BILL [address] [place] [address] * (ABNORMAL) MYCOPLASMA PNEUMO ANTIBODY IGG/IGM PANEL [...] Comment [facility] [place] [address] ??[place] [phone] Sudeep Gloria DO LAB - SEROLOGY ORDERABLES [facility] INSURANCE BILL [address] [place] [address] * (ABNORMAL) STANLEY-MORAES VIRUS PANEL (07/26/2016 9:50 [...] PM CDT Narrative Resulting Agency Comment [facility] [address] [facility] ??[facility] [phone] Sudeep Gloria DO LAB - CHEMISTRY ORDERABLES [facility] INSURANCE BILL [address] [place] [address] * CBC W AUTO DIFFERENTIAL (07/26/2016 9:50 [...] PM CDT Narrative Resulting Agency Comment [facility] [address] [facility] ??[facility] [phone] Sudeep Gloria DO LAB - HEMATOLOG Y ORDERABLES [facility] INSURANCE BILL [address] [place] [address] * (ABNORMAL) COMPREHENSIVE METABOLIC PANEL (07/26/2016 9:50 [...] 1:00 PM CDT Narrative Resulting Agency Comment [facility] [place] [address] ??[facility] [phone] Sudeep Gloria DO LAB - CHEMISTRY ORDERABLES Performing Organization Address City/[facility]/ZIP Co de Phone Number [facility] INSURANCE BILL [address] [place] [address] * TSH (07/26/2016 9:50 AM CDT) TSH 1.690 0.450 - 4.500 uIU/mL [facility] INSURANCE BILL 07/26/2016 9:50 AM CDT 07/26/2016 1:00 PM CDT Narrative Resulting Agency Comment [facility] [address] ??[facility] [phone] Sudeep Gloria DO LAB - CHEMISTRY ORDERABLES Performing Organization Address [facility]/ZIP Co de Phone Number [facility] INSURANCE BILL [address] [place] [address] * (ABNORMAL) LIPID PROFILE (07/26/2016 9:50 AM [...] 1:00 PM CDT Narrative Resulting Agency Comment [facility] [address] ??[facility] [phone] Sudeep Gloria DO LAB - CHEMISTRY ORDERABLES [facility] INSURANCE BILL [address] [place] [address] * (ABNORMAL) STREP A SCREEN - POINT OF CARE (AMB) (09/25/2010 10:33 AM OXYACETYLENE [facility]NER) Strep A Rapid POCT positive NEGATIVE - POSITIVE Strep A Internal Control NEGATIVE - POSITIVE Throat swab (specimen) ENTIRE THROAT (SURFACE REGION OF NECK) / Unknown 09/25/2010 10:33 AM OXYACETYLENE BURNER Terrie Anderson MD LAB - POINT OF CARE ORDERABLES * GROSS + MICRO EXAM (07/28/2007 4:30 PM CDT) Result CASE NUMBER [id number] [facility] LAB PATH REPORT Comment: ORDERING PHYSICIAN [...] diameter. ??The specimen is serially sectioned, and home furnishings sales representative sections are submitted in cassette [...] and interpreted by the attending (teaching) pathologist. Kiln Firer ? AD YARBROUGH RESIDENT IN PATHOLOG Mikala Reid M.D. PATHOLOGIST ?Ezekiel Eli M.D. ELECTRONICALLY NEVINEzekiel Sarabia MISCELLANEOUS SAMPLES / Unknown 07/28/2007 4:30 PM CDT 07/31/2007 8:08 AM CDT Historical Provider MD LAB - PATHOLOGY/C YTOLOGY ORDERABLES [facility] LAB PATH REPORT Care Teams Health Care Attorney Relationship Specialty Start Date End Date Priya Sprague MD PCP - General Pediatrics 09/13/14 Haja Garcia MD [address] [facility] [address] [place] [address] PCP - Attributed-[facility] [place] 09/07/23
--- OUTSIDE RECORDS SUMMARY | 2024-10-27 02:41 | XMS_ITS | Encounter Summary ---
Author Organization [facility] Address [address] [place] [address] [place] [address] Care Team Providers Care Machine I Engraver Name Role Phone Unavailable Primary Care Provider Unavailabl e Reason for Visit * Reason Comments Cough Ear Problem Encounter Details Date Type Department Care Team (Late st Contact Info) Description 03/01/2011 3:40 PM CDT Office Visit [facility] Medical [facility] - Pediatrics [address] [place] [phone] Terrie Anderson MD [address] [place] [address] Acute sinusitis, unspecified (Primary Dx) [...]
--- OUTSIDE RECORDS SUMMARY | 2024-10-27 02:41 | XMS_ITS | Encounter Summary ---
Author Organization [facility] Address [address] [facility] [place] [address] Care Team Providers Care Patrol Officer Name Role Phone Unavailable Primary Care Provider Unavailabl e Reason for Visit * Reason Comments Cough productive cough x3 weeks URI occasional sneezing, stuffy nose with greenish exudate x3 weeks Fever today; temp 101 Sore Throat today Encounter Details Date Type Department Care Team (Late st Contact Info) Description 03/23/2011 2:15 PM CDT Office Visit [facility] - Pediatrics [address] [place] [phone] Priya Sprague MD [address] [place] [phone] Acute sinusitis, unspecified (Primary Dx) Social [...]
--- OUTSIDE RECORDS SUMMARY | 2024-10-27 02:41 | XMS_ITS | Encounter Summary ---
Author Organization [facility] Address [address] [place] [address] Care Team Providers Care Consumer Advocate Name Role Phone Unavailable Primary Care Provider Unavailabl e Reason for Visit * Reason Comments Enlarged Tonsils moreno on left side Sore Throat past 7 days Cough night and day Swelling Gland left neck Encounter Details Date Type Department Care Team (Latest Contact Info) Description 09/25/2010 9:50 AM EFFICIENCY CLERK Office Visit [facility] Medical [facility] - Pediatrics [address] [place] [address] [address] [place] [phone] Terrie Anderson MD [address] [address] Streptococcal pharyngitis (Primary Dx) Social [...] (122 lb 9.6 oz) 09/25/2010 10:02 AM EFFICIENCY CLERK Height - - Body Mass Index - [...] the electronic medical record Symptomatic treatment discussed. CIENCY CLERK documented in this encounter Plan of Treatment Not on file documented as of this encounter Procedures Procedure Name Priority Date/Time Associated Diagnosis Comments STREP A SCREEN - POINT OF CARE (AMB) Routine 09/25/2010 10:33 AM EFFICIENCY CLERK Streptococcal pharyngitis documented in this encounter Results * (ABNORMAL) STREP A SCREEN - POINT OF CARE (AMB) (09/25/2010 10:33 AM EFFICIENCY CLERK) Strep A Rapid POCT positive NEGATIVE - POSITIVE Strep A Internal Control NEGATIVE - POSITIVE Throat swab (specimen) ENTIRE THROAT (SURFACE REGION OF NECK) / Unknown 09/25/2010 10:33 AM EFFICIENCY CLERK Terrie Anderson MD LAB - POINT OF CARE ORDERABLES documented in this encounter Visit Diagnoses Diagnosis Streptococcal pharyngitis- Primary Streptococcal sore throat documented in this encounter
--- OUTSIDE RECORDS SUMMARY | 2024-10-27 02:41 | XMS_ITS | Encounter Summary ---
Author Organization [facility] Address [address] [facility] [place] [address] Care Team Providers Care Rolling Mill Plugger Name Role Phone Unavailable Primary Care Provider Unavailabl e Reason for Visit * Reason Comments Cough since mid February Encounter Details Date Type Department Care Team (Late st Contact Info) Description 04/12/2011 10:40 AM CDT Office Visit [facility] - Pediatrics [address] [place] [phone] Terrie Anderson MD [address] [place] [address] Acute sinusitis, unspecified (Primary Dx) [...]
--- OUTSIDE RECORDS SUMMARY | 2024-10-27 02:41 | XMS_ITS | Encounter Summary ---
Author Organization [facility] Address [address] [place] [address] Care Team Providers Care Furniture Mover Helper Name Role Phone Priya Sprague MD Primary Care Provider [phone] Reason for Visit * Reason Onset Date Comments Complete Physical Exam 06/22/2016 Encounter Details Date Type Department Care Team (Late st Contact Info) Description 06/22/2016 11:00 AM CDT Office Visit [facility] Medical [facility] - Pediatrics [address] [place] [phone] Priya Sprague MD [address] [place] [phone] Encounter for routine child health examination [...] 96.72% 06/22 10:38 AM CDT Growth Chart: [facility] (Girls, 2- 20 Years) documented in this [...] 98%ile (Z=2.10) based on CDC 2-20 Years tmfoej-oeh-eiz data using vitals from 06/22/2016. Ht Readings from Last 1 Encounters: 06/22/16 1.699 m (5' 6.88 ) (87 %*, Z = 1.11) * Growth percentiles are based on CDC 2-20 Years data. 87%ile (Z=1.11) based on CDC 2-20 Years vpumsxc-pex-tjc data using vitals from 06/22/2016. IMMUNIZATIONS One [...] dishes 2. Prepare simple family meals 3. [place] leaves 4. Take the trash out for [...] The texts and phone calls can WAIT. [place] and [place] law, effective July 04, 2006, says your child must be in a booster seat if they are ages 4 through 7 who weigh at least 40 pounds, unless they are 80 pounds or 4???9?? tall. DO NOT ALLOW ANYONE TO SMOKE AROUND YOUR CHILD. DIET Make sure that your child is eating breakfast in the morning school business manager. Encourage them to eat at least 3 [...] Where can I go for more information? [place] Academy of Pediatrics ( ) www.aap.org, HealthyChildren.org www.healthychildren.org Website and free downloadable taylor for smartphones: http://www.Receept/ and http://www.LittleCast, Inc./ documented in this encounter Progress Notes * Priya Sprague MD - 06/22/2016 10:47 AM CDT Adolescent WCC Reviewed Nurse's Adolescent Note PHX: depression, cutting Medications: none ROS Has been trying to eat more fruits and veggies. Has been trying to lose weight Stomachaches, Headaches: No Constipation/Diarrhea: No Girls: Menses Yes: monthly, lasts 7 days Social History: School: [employer], Grade 11th. Home:lives with mom Activity/Exercise: fair. With exercise, CP, SOB, dizziness? No Alcohol: denies Drugs:denies Sex:denies Smoking:denies Eoyhwbzydq-NBI-5 score : 6 see scanned Mom reports [...] 98%ile (Z=2.10) based on CDC 2-20 Years tnxoks-lmi-ghj data using vitals from 06/22/2016. 87%ile (Z=1.11) based on CDC 2-20 Years syqwiev-hax-nbs data using vitals from 06/22/2016. BP 124/64 [...] Where can I go for more information? [place] Academy of Pediatrics ( ) www.aap.org HealthyChildren.org www.healthychildren.org U.S. Department of Health and Human Services www.hhs.gov Website and free downloadable taylor for smartphones: http://Ink361.Funji/ Use safety retraint in car Lifestyle On [...] type documented in this encounter Care Teams Furniture Mover Helper Relationship Specialty Start Date End Date Priya Sprague MD PCP - General Pediatrics 09/13/14 documented as of this encounter
--- OUTSIDE RECORDS SUMMARY | 2024-10-27 02:41 | XMS_ITS | Encounter Summary ---
Author Organization [facility] Address [address] [place] [address] Care Team Providers Care Radiation Control Specialist Name Role Phone Priya Sprague MD Primary Care Provider [phone] Reason for Visit * Reason Comments URI x 2 weeks c/o cough, burning sinuses, runny stuffy nose, fever ^101. Sore throat. Encounter Details Date Type Department Care Team (Late st Contact Info) Description 10/28/2014 2:45 PM SAMPLE BUILDER Office Visit [facility] Medical [facility] - Pediatrics [address] [place] [address] [address] [place] [phone] Urbano العراقي MD [address] [place], [place] [id number] Sinusitis, acute (Primary Dx); Obesity Social History [...] (234 lb 3.2 oz) 10/28/2014 2:35 PM SAMPLE BUILDER Height 168.9 cm (5' 6.5 ) 10/28/2014 2:35 PM SAMPLE BUILDER Body Mass Index 37.23 10/28/2014 2:35 PM SAMPLE BUILDER Body Mass Index Percentile 99.44% 10/28/2014 2:3 5 PM SAMPLE BUILDER Growth Chart: [facility] (Girls, 2- 20 Years) documented in this [...] Encounter ??? amoxicillin-clavulanate (AUGMENTIN) 875-125 MG tablet LE BUILDER documented in this encounter Plan of Treatment Not on file documented as of this encounter Visit Diagnoses Diagnosis Sinusitis, acute- Primary Acute sinusitis, unspecified Obesity Obesity, unspecified documented in this encounter Care Teams Radiation Control Specialist Relationship Specialty Start Date End Date Priya Sprague MD PCP - General Pediatrics 09/13/14 documented as of this encounter
--- OUTSIDE RECORDS SUMMARY | 2024-10-27 02:41 | XMS_ITS | Encounter Summary ---
Author Organization [facility] Address [address] [place] [address] Care Team Providers Care Package Line Relief Operator Name Role Phone Priya Sprague MD Primary Care Provider [phone] Reason for Visit * Reason Comments Ear Pain Bilateral ear pain x 5 days. Nasal congestion runny nose. No fever or drainage. Encounter Details Date Type Department Care Team (Late st Contact Info) Description 06/03/2016 11:15 AM CDT Office Visit [facility] - Pediatrics [address] [place] [phone] Priya Sprague MD [address] [place] [phone] Acute URI (Primary Dx); Decreased hearing [...] ears documented in this encounter Care Teams Package Line Relief Operator Relationship Specialty Start Date End Date Priya Sprague MD PCP - General Pediatrics 09/13/14 documented as of this encounter
--- OUTSIDE RECORDS SUMMARY | 2024-10-27 02:41 | XMS_ITS | Encounter Summary ---
Author Organization [facility] Address [address] [place] [address] Care Team Providers Care Stone Sandblaster Name Role Phone Priya Sprague MD Primary Care Provider [phone] Reason for Visit * Reason Comments Imm Inj Encounter Details Date Type Department Care Team (Latest Contact Info) Description 04/18/2015 11:00 AM CDT Clinical Support [facility] Medical [facility] - Pediatrics [address] [place] [phone] Need for prophylactic vaccination and inoculation against [...] diseases documented in this encounter Care Teams Stone Sandblaster Relationship Specialty Start Date End Date Priya Sprague MD PCP - General Pediatrics 09/13/14 documented as of this encounter
--- OUTSIDE RECORDS SUMMARY | 2024-10-27 02:41 | XMS_ITS | Encounter Summary ---
Author Organization [facility] Address [address] [place] [address] Care Team Providers Care Scagliola Mechanic Name Role Phone Terrie Anderson MD Primary Care Provider [phone] Reason for Visit * Reason Comments Complete Physical Exam 9th grade physica l Encounter Details Date Type Department Care Team (Late st Contact Info) Description 07/05/2014 3:00 PM CDT Office Visit [facility] Medical [facility] - Pediatrics [address] [place] [phone] Priya Sprague MD [address] [place] [phone] Well child check (Primary Dx); BMI [...] 99%ile (Z=2.55) based on CDC 2-20 Years qgnewo-rgw-pkz data using vitals from 07/05/2014. 90%ile (Z=1.27) based on CDC 2-20 Years vzlurla-nyo-ryq data using vitals from 07/05/2014. IMMUNIZATIONS At [...] machinery. Plan to ride with a designated driver license agent or to call for a ride if [...] and regular physical ac tivity. ORAL HEALTH: [place] your teeth twice a day with a [...] normal, but having sex should be a tmoy-wkjwrfm-wgg decision. Delay having sex until you and [...] those for curfews or driving. Share in senior cost accountant. Learn about how you can take on [...] PROMOTION OF COMMUNITY INTERACTION: Participate in social, hindu, cultural, volunteer or recreational activities. Advocate for [...] a TV or computer in your room. www.BOKU: A great site for older teens that includes ways to communicate with peers when they experience online bullying that is not cool . www.drumbi.org: A site for younger and older teens, as well as parents, with many suggestions oninternet safety www.CustExtz.org: A site presented by the National Center for Missing and Exploited Children with information for kids, teens and parents, much of it focused on avoiding cyber bullying. documented in this encounter Progress Notes * Priya Sprague MD - 07/05/2014 3:07 PM CDT Adolescent [facility] Nurse Screen: Parental/Patient Concerns: none Diet: Milk 2%, 8-16 ounces per day. +cheese Vegetables: fair, fruits: good, Dental: regular dental visits? No Hearing / Vision: concerns? No //////////////////////////////////////////////////////////////////////////////// /////////////////// Note: PHX:healthy Medications: none ROS Stomachaches, Headaches: No Constipation/Diarrhea: No Girls: Menses Yes: monthl, regular, lasts 6 days Social History: School: [employer], Grade 9th. Home:lives with mom, dad Activity/Exercise: poor Alcohol:denies Drugs:denies Sex:denies Smoking:denies Teqbegjdpc-MSU-8 score : 17 (+) --with mom out [...] 2-20 Years data. 99%ile (Z=2.55) based on [facility] 2-20 Years pjvicb-fqz-ovq data using vitals from 07/05/2014. 90%ile (Z=1.27) based on CDC 2-20 Years vsnqndm-gzg-tkf data using vitals from 07/05/2014. BP 120/60 [...] classified documented in this encounter Care Teams Scagliola Mechanic Relationship Specialty Start Date End Date Terrie Anderson MD PCP - General Pediatrics 11/19/11 09/12/14 documented as of this encounter
--- OUTSIDE RECORDS SUMMARY | 2024-10-27 02:41 | XMS_ITS | Encounter Summary ---
Author Organization [facility] Address [address] [facility] [place] [address] Care Team Providers Care Van Owner Operator Name Role Phone Terrie Anderson MD Primary Care Provider [phone] Encounter Details Date Type Department Care Team (Late st Contact Info) Description 07/28/2007 Orders Only [facility] - Laboratory [address] [place] [address] ProviderKd MD Social History Tobacco Use Types [...] PM CDT) Result CASE NUMBER [id number] [facility] PATH REPORT Comment: ORDERING [...] diameter. ??The specimen is serially sectioned, and claim representative sections are submitted in cassette A [...] and interpreted by the attending (teaching) pathologist. Lead Systems Analyst ? AD YARBROUGH RESIDENT IN PATHOLOG Mikala Reid M.D. PATHOLOGIST ?Ezekiel Eli M.D. ELECTRONICALLY NEVIN Ezekiel Eli MISCELLANEOUS SAMPLES / Unknown 07/28/2007 4:30 PM CDT 07/31/2007 8:08 AM CDT Historical Provider LAB - PATHOLOGY/C YTOLOGY ORDERABLES [facility] PATH REPORT documented in this encounter Visit Diagnoses Not on filedocumented in this encounter Care Teams Van Owner Operator Relationship Specialty Start Date End Date Terrie Anderson MD PCP - General Pediatrics 11/19/11 09/12/14 documented as of this encounter
--- OUTSIDE RECORDS SUMMARY | 2024-10-27 02:42 | XMS_ITS ---
Author Organization [facility] Address [address] [place] [address] Phone Care Team Providers Care Well Service Derrick Worker Name Role Phone Pritesh Chu MD Primary Care Provider [phone] Markus Finley MD Unavailable [phone] Zander Cha MD Unavailable Active Problems Problem [...]
--- OUTSIDE RECORDS SUMMARY | 2024-10-27 02:42 | XMS_ITS | Encounter Summary ---
Author Organization [employer] Care Team Providers Care Court Attendant Name Role Phone Pritesh Chu MD Primary Care Provider [phone] Markus Finley MD Unavailable [phone] Zander Cha MD Unavailable Encounter Details Date Type Department Care Team (Latest Contact Info) Description 10/21/2024 Travel Social History Tobacco Use Types Packs/Day Years Used Date Smoking Tobacco: Former Cigarettes 0.5 5.6 S tarted: 04/18/2016 Smokeless Tobacco: Never Alcohol Use Standard Drinks/Week Comments Not Currently 0 (1 standard drink = 0.6 oz pur e alcohol) quit 2023 [facility] Utilities Answer Date Recorded In the past 12 months has [employer], gas, oil, or water [employer] threatened to shut off services in your [...] week 09/25/2024 How often do you attend [facility] or taoist services? Never 09/25/2024 Do you belong to any clubs o r organizations such as confucianist groups, unions, fraternal or athletic groups, or [...] medical care, and heating? Somewhat hard 09/25/2024 [facility] - [...] st Contact Info) Description 11/15/2024 1:00 PM MANUSCRIPT READER Lab [facility] Services [address] [place] [address] Markus Finley MD [address] [place] [address] 11/15/2024 2:00 PM MANUSCRIPT READER Appointment [facility] MRI [address] [place] [phone] Markus Finley MD [address] [place] [address] Discharge Disposition: Discharged to home or Selfcare documented as of this encounter Visit Diagnoses Not on filedocumented in this encounter Care Teams Court Attendant Relationship Specialty Start Date End Date Pritesh Chu MD [address] [place], [place] [id number] PCP - General Family Medicine 04/18/24 Markus Finley MD [address] [place] [address] Consulting Physician Medical Oncology 04/18/24 Zander Cha MD [address] [place] [address] Consulting Physician Colon and Rectal Surgery 08/24/24 documented as of this encounter
--- OUTSIDE RECORDS SUMMARY | 2024-10-27 02:42 | XMS_ITS | Clinical Summary ---
Author Organization [facility] Address [address] [place] [address] Phone Care Team Providers Care Track Walker Name Role Phone Pritesh Chu MD Primary Care Provider [phone] Markus Finley MD Unavailable [phone] Zander Cha MD Unavailable Allergies No known [...] Type Department Care Team Description 10/24/2024 Refill [facility] [address] [place] [phone] Markus Finley MD Medication Refill 10/21/2024 Travel 10/08/2024 Telephone [facility] On[facility] [address] [place] [phone] Markus Finley MD 10/05/2024 Transcribe Orders [facility] [address] [place] [address] [place] [address] Markus Finley MD Metastatic melanoma (HCC) (Primary Dx) 10/02/2024 3:20 PM LEAD SLOT TECHNICIAN Office Visit [facility] [address] [place] [phone] Markus Finley MD Metastatic melanoma (HCC) (Primary Dx); New daily persistent headache Discharge Disposition: Discharged to home or Selfcare 10/02/2024 2:30 PM LEAD SLOT TECHNICIAN Clinical Support [facility] Oncology Services [address] [place] [phone] Markus Finley MD Metastatic melanoma (HCC) (Primary Dx) Discharge Disposition: Discharged to home or Selfcare 10/02/2024 Travel 09/25/2024 1:30 PM LEAD SLOT TECHNICIAN Clinical Support [facility] Oncology Services [address] [place] [address] Markus Finley MD Dehydration (Primary Dx); Metastatic melanoma (HCC); Nasal discomfort Discharge Disposition: Discharged to home or Selfcare 09/25/2024 Travel 09/25/2024 Patient Outreach [facility] [address] [place] [phone] Navigator, [employer] Social Concerns 09/20/2024 [facility]ill [facility] [address] [place] [phone] Markus Finley MD Medication Refill 09/18/2024 1:30 PM LEAD SLOT TECHNICIAN Clinical Support [facility] [address] [place] [phone] Markus Finley MD Metastatic melanoma (HCC) Discharge Disposition: Discharged to home or Selfcare 09/18/2024 Travel 09/11/2024 1:40 PM LEAD SLOT TECHNICIAN Office Visit [facility] [address] [place] [phone] Markus Finley MD Discharge Disposition: Discharged to home or Selfcare 09/11/2024 1:30 PM LEAD SLOT TECHNICIAN Clinical Support [facility] Oncology Services [address] [place] [phone] Markus Finley MD Metastatic melanoma (HCC) Discharge Disposition: Discharged to home or Selfcare 09/11/2024 Travel 09/10/2024 Refill [facility] [address] [place] [phone] Markus Finley MD Medication Refill 09/07/2024 11:30 AM CDT Clinical Support [facility] Oncology Services [address] [place] [phone] Markus Finley MD Metastatic melanoma (HCC) (Primary Dx) Discharge Disposition: Discharged to home or Selfcare 09/07/2024 Travel 09/07/2024 Telephone [facility] [address] [place] [address] Markus Finley MD 09/04/2024 11:15 AM CDT Procedure Visit [facility] [address] [phone] Zander Cha MD Metastatic melanoma (HCC) (Primary Dx); Subcutaneous nodule of left lower extremity Discharge Disposition: Discharged to home or Selfcare 09/04/2024 Travel 08/29/2024 1:00 PM CDT Office Visit [facility] #[address] [phone] Markus Finley MD Kumar, Raman, MD Metastatic melanoma (HCC); Subcutaneous nodule of left lower extremity Discharge Disposition: Discharged to home or Selfcare 08/29/2024 Telephone [facility] [address] [place] [phone] Markus Finley MD 08/29/2024 Travel 08/28/2024 Refill [facility] [address] [place] [address] Markus Finley MD Medication Refill 08/27/2024 Telephone [facility] [address] [place] [address] Markus Finley MD 08/24/2024 11:30 AM CDT Clinical Support [facility] [address] [place] [address] Markus Finley MD Diarrhea, unspecified type (Primary Dx); Metastatic melanoma (HCC) Discharge Disposition: Discharged to home or Selfcare 08/24/2024 Travel 08/22/2024 11:30 AM CDT Clinical Support [facility] [address] [place] [phone] Anthony Eckert MD Sandhu, Manpreet Kaur, MD Diarrhea due to drug (Primary Dx); Metastatic melanoma (HCC) Discharge Disposition: Discharged to home or Selfcare 08/22/2024 Travel 08/20/2024 1:40 PM CDT Clinical Support [facility] [address] [place] [phone] Markus Finley MD Metastatic melanoma (HCC) (Primary Dx) Discharge Disposition: Discharged to home or Selfcare 08/20/2024 1:00 PM CDT Office Visit [facility] [address] [place] [phone] Markus Finley MD Non-alcoholic fatty liver disease (Primary Dx); Diarrhea due to drug; Morbid obesity (HCC); Hypokalemia due to excessive gastrointestinal loss of potassium; Hypothyroidism due to medication; Metastatic melanoma (HCC); Subcutaneous nodule of left lower extremity Discharge Disposition: Discharged to home or Selfcare 08/20/2024 Travel 08/16/2024 Telephone [facility] [address] [place] [phone] Markus Finley MD 08/15/2024 11:35 AM CDT - 08/15/2024 11:59 PM CDT Hospital Encounter [facility] PET [address] [place] [phone] Markus Finley MD Discharge Disposition: Discharged to home or Selfcare 08/15/2024 11:30 AM CDT Clinical Support [facility] Oncology Services [address] [place] [phone] Markus Finley MD Metastatic melanoma (HCC) Discharge Disposition: Discharged to home or Selfcare 08/15/2024 Travel 08/14/2024 Telephone [facility] Services [address] [place] [phone] Markus Finley MD 08/13/2024 11:30 AM CDT Clinical Support [facility] Oncology Services [address] [place] [phone] Markus Finley MD Acute renal failure, unspecified acute renal failure type (HCC) (Primary Dx); Metastatic melanoma (HCC) Discharge Disposition: Discharged to home or Selfcare 08/13/2024 Travel 08/10/2024 11:00 AM CDT Clinical Support [facility] [address] [place] [phone] Markus Finley MD Metastatic melanoma (HCC) (Primary Dx); Acute renal failure, unspecified acute renal failure type (HCC) Discharge Disposition: Discharged to home or Selfcare 08/10/2024 Travel 08/09/2024 Patient Outreach [facility] [employer] [facility] [address] [place] [phone] Lucille Lawson RN Transition of Care (Week #1 ) 08/08/2024 11:30 AM CDT Clinical Support [facility] Oncology Services [address] [place] [phone] Markus Finley MD Metastatic melanoma (HCC) Discharge Disposition: Discharged to home or Selfcare 08/08/2024 Travel 08/07/2024 Patient Outreach [facility] [address] [place] [address] Lucille Lawson RN 08/06/2024 11:30 AM CDT Clinical Support [facility] Oncology Services [address] [place] [phone] Markus Finley MD Diarrhea due to drug (Primary Dx); Metastatic melanoma (HCC) Discharge Disposition: Discharged to home or Selfcare 08/06/2024 10:40 AM CDT Office Visit [facility] [address] [place] [phone] Markus Finley MD Metastatic melanoma (HCC) (Primary Dx); Hypothyroidism due to medication; Acute renal failure, unspecified acute renal failure type (HCC); Hypokalemia due to excessive gastrointestinal loss of potassium; Dehydration; Immunotherapy; Diarrhea due to drug Discharge Disposition: Discharged to home or Selfcare 08/06/2024 Post Discharge Follow-up [facility] Nursing Services [address] [place] [phone] Arline Rojo RN 08/06/2024 Travel 08/04/2024 Patient Outreach [facility] [address] [place] [phone] Yadira Gill RN Transition of Care 08/01/2024 2:20 PM CDT Office Visit [facility] [address] [place] [phone] Markus Finley MD Other specified hypothyroidism (Primary Dx); Diarrhea due to drug; Acute renal failure, unspecified acute renal failure type (HCC); Dehydration; Hypokalemia due to excessive gastrointestinal loss of potassium; Metastatic melanoma (HCC); Immunotherapy Discharge Disposition: Discharged to home or Selfcare 08/01/2024 12:38 PM CDT - 08/03/2024 6:15 PM CDT Hospital Encounter [facility] Med Surg [address] [place] [phone] Graciela Jonas PAC Landry, Scott Lewis, MD Krishna, Naveen Kumar, MD Acute renal failure, unspecified acute renal failure type (HCC) Discharge Disposition: Home Health Care [facility] 08/01/2024 10:30 AM CDT Clinical Support [facility] Oncology Services [address] [place] [phone] Markus Finley MD Diarrhea due to drug (Primary Dx); Metastatic melanoma (HCC) Discharge Disposition: Discharged to home or Selfcare 08/01/2024 Post Discharge Follow-up [facility] Nursing Services [address] [place] [address] Arline Rojo RN 08/01/2024 Travel 07/31/2024 Patient Outreach [facility] [address] [place] [address] Maday Suarez RN Transition of Care (TCM 1st attempt) 07/25/2024 11:42 AM CDT - 07/30/2024 3:39 PM CDT Hospital Encounter [facility] Med Surg [address] [place] [phone] Gael Morales MD Dianati, Behfar, MD Patel, [...] 0.6 oz pur e alcohol) quit 2023 [facility] Utilities Answer Date Recorded In the [...] often do you attend chur ch or gnosticism services? Never 09/25/2024 Do you belong to [...] medical care, and heating? Somewhat hard 09/25/2024 [facility] - [...] living in a long-term (including now)? No 09/25/2024 Sexually Active Control [...] Comments Blood Pressure 137/91 10/02/2024 2:56 PM LEAD SLOT TECHNICIAN Pulse 76 10/02/2024 2:56 PM LEAD SLOT TECHNICIAN Temperature 36.6 ??C (97.8 ??F) 10/02/2024 2:56 PM CS T Respiratory Rate 16 10/02/2024 2:56 PM LEAD SLOT TECHNICIAN Oxygen Saturation 98% 10/02/2024 2:56 PM LEAD SLOT TECHNICIAN Inhaled Oxygen Concentration - - Weight 119.7 kg (263 lb 12.8 oz) 10/02/2024 2:56 PM LEAD SLOT TECHNICIAN Height 167.6 cm (5' 6 ) 10/02/2024 2:56 PM LEAD SLOT TECHNICIAN Body Mass Index 42.58 10/02/2024 2:56 PM LEAD SLOT TECHNICIAN Plan of Treatment Upcoming Encounters Date Type Department Care Team (Late st Contact Info) Description 11/15/2024 1:00 PM LEAD SLOT TECHNICIAN Lab [facility] Laboratory Services [address] [place] [address] Markus Finley MD [address] [place] [address] 11/15/2024 2:00 PM LEAD SLOT TECHNICIAN Appointment [facility] MRI [address] [place] [address] Markus Finley MD [address] [place] [address] Discharge Disposition: Discharged to home or Selfcare [...] Needs Food Insecurity Recommended 09/25/2024 11:54 AM LEAD SLOT TECHNICIAN [employer] [facility] Food Insecurity Needs Food Insecurity Recommended 09/25/2024 11:54 AM LEAD SLOT TECHNICIAN [facility] Financial Resource Needs, Food Insecurity Needs Financial Resource Strain, Food Insecurity Recommended 09/25/2024 11:54 AM LEAD SLOT TECHNICIAN [facility] - Mental Health Services Mental Health Evaluation Stress Recommended 09/25/2024 11:54 AM LEAD SLOT TECHNICIAN [facility] Division of Mental Health - Inpatient Services Mental Health Evaluation, Mental Health Services Stress Recommended 09/25/2024 11:54 AM LEAD SLOT TECHNICIAN [facility] HealthCare - [facility] Home Care Services - Psychiatric Care Medications for Mental Health, Mental Health Education, Mental Health Evaluation, Mental Health Services Stress Recommended 09/25/2024 11:54 AM LEAD SLOT TECHNICIAN from Last 12 Months Procedures Procedure Name Priority Date/Time Associated Diagnosis Comments CBC WITH AUTO DIFFERENTIAL STAT 10/02/2024 3:08 PM LEAD SLOT TECHNICIAN Metastatic melanoma (HCC) THYROID STIMULATING HORMONE (TSH) STAT 10/02/2024 3:08 PM LEAD SLOT TECHNICIAN Metastatic melanoma (HCC) CMP (COMPREHENSIVE METABOLIC PANEL) STAT 10/02/2024 3:08 PM LEAD SLOT TECHNICIAN Metastatic melanoma (HCC) COMPLETE BLOOD COUNT (CBC) WITH DIFF STAT 10/02/2024 3:08 PM LEAD SLOT TECHNICIAN Metastatic melanoma (HCC) CBC WITH AUTO DIFFERENTIAL STAT 09/25/2024 2:03 PM LEAD SLOT TECHNICIAN Metastatic melanoma (HCC) THYROID STIMULATING HORMONE (TSH) STAT 09/25/2024 2:03 PM LEAD SLOT TECHNICIAN Metastatic melanoma (HCC) COMPLETE BLOOD COUNT (CBC) WITH DIFF STAT 09/25/2024 2:03 PM LEAD SLOT TECHNICIAN Metastatic melanoma (HCC) CMP (COMPREHENSIVE METABOLIC PANEL) STAT 09/25/2024 2:03 PM LEAD SLOT TECHNICIAN Metastatic melanoma (HCC) CBC WITH AUTO DIFFERENTIAL STAT 09/18/2024 2:21 PM LEAD SLOT TECHNICIAN Metastatic melanoma (HCC) THYROID STIMULATING HORMONE (TSH) STAT 09/18/2024 2:21 PM LEAD SLOT TECHNICIAN Metastatic melanoma (HCC) CMP (COMPREHENSIVE METABOLIC PANEL) STAT 09/18/2024 2:21 PM LEAD SLOT TECHNICIAN Metastatic melanoma (HCC) COMPLETE BLOOD COUNT (CBC) WITH DIFF STAT 09/18/2024 2:21 PM LEAD SLOT TECHNICIAN Metastatic melanoma (HCC) CBC WITH AUTO DIFFERENTIAL STAT 09/11/2024 1:32 PM LEAD SLOT TECHNICIAN Metastatic melanoma (HCC) COMPLETE BLOOD COUNT (CBC) WITH DIFF STAT 09/11/2024 1:32 PM LEAD SLOT TECHNICIAN Metastatic melanoma (HCC) CMP (COMPREHENSIVE METABOLIC PANEL) STAT 09/11/2024 1:32 PM LEAD SLOT TECHNICIAN Metastatic melanoma (HCC) MAGNESIUM (MG) Routine 09/11/2024 1:32 PM LEAD SLOT TECHNICIAN CBC WITH AUTO DIFFERENTIAL STAT 09/07/2024 11:55 AM CDT Metastatic melanoma (HCC) THYROID STIMULATING HORMONE (TSH) STAT 09/07/2024 11:55 AM CDT Metastatic melanoma (HCC) CMP (COMPREHENSIVE METABOLIC PANEL) STAT 09/07/2024 11:55 AM CDT Metastatic melanoma (HCC) COMPLETE BLOOD COUNT (CBC) WITH DIFF STAT 09/07/2024 11:55 AM CDT Metastatic melanoma (HCC) PATHOLOGY SURGICAL Routine 09/04/2024 1: 02 PM [...] type C. DIFFICILE BY PCR Routine 08/24/2024 1 1:39 AM CDT Diarrhea, unspecified type CBC WITH [...] PCR STAT 08/01/2024 7 :08 PM CDT CULTURE, BLOOD STAT 08/01/2024 3:48 PM CDT XR CHEST SINGLE VIEW PORTABLE STAT 08/01/2024 2:49 PM CDT CULTURE, BLOOD STAT 08/01/2024 2:17 PM CDT CRITICAL CARE Routine 08/01/2024 2:16 PM CDT MINT GREEN LI HEPARIN/SST TOP TUBE STAT 08/01/2024 1:30 PM CDT LAVENDER TOP TUBE STAT 08/01/2024 1:3 0 PM CDT GOLD TOP TUBE STAT 08/01/2024 [...] CDT RHYTHM STRIP 07/28/2024 12:00 AM CDT from Last 3 Months Results * (ABNORMAL) CBC WITH AUTO DIFFERENTIAL (10/02/2024 3:08 PM LEAD SLOT TECHNICIAN) Only the most recent of13 resultswithin the time period is included. WBC 6.72 4.00 - 12.00 10(3)/mcL 10/02/2024 3:24 PM [facility] RBC 3.73(L) 3.80 - 5.30 10(6)/mcL 10/02/2024 3:24 PM [facility] HEMOGLOBIN (HGB) 11.9(L) 12.0 - 15.8 g/dL 10/02/2024 3:24 PM [facility] HEMATOCRIT (HCT) 36.2 36.0 - 47.0 % 10/02/2024 3:24 PM [facility] MCV 97.1(H) 82.0 - 96.0 fL 10/02/2024 3:24 PM [facility] MCH 31.9 26.0 - 34.0 pg 10/02/2024 3:24 PM [facility] MCHC 32.9 31.0 - 36.0 g/dL 10/02/2024 3:24 PM [facility] PLATELET COUNT 204 140 - 440 10(3)/mcL 10/02/2024 3:24 PM [facility] RDW 14.3 11.8 - 15.5 % 10/02/2024 3:24 PM [facility] MPV 10.6 9.7 - 12.4 fL 10/02/2024 3:24 PM [facility] NEUTROPHILS 83.7(H) 47.0 - 73.0 % 10/02/2024 3:24 PM [facility] LYMPHOCYTES 10.7(L) 18.0 - 42.0 % 10/02/2024 3:24 PM [facility] MONOCYTES 5.4 4.0 - 12.0 % 10/02/2024 3:24 PM [facility] EOSINOPHILS 0.1 0.0 - 5.0 % 10/02/2024 3:24 PM LEAD SLOT TECHNICIAN [facility] BASOPHILS 0.1 0.0 - 1.0 % 10/02/2024 3:24 PM LEAD SLOT TECHNICIAN [facility] ABSOLUTE NEUTROPHILS 5.62 1.60 - 7.70 10(3)/[facility] 10/02/2024 3:24 PM LEAD SLOT TECHNICIAN [facility] ABSOLUTE LYMPHOCYTES 0.72(L) 1.30 - 3.20 10(3)/[facility] 10/02/2024 3:24 PM LEAD SLOT TECHNICIAN [facility] ABSOLUTE MONOCYTES 0.36 0.20 - 1.00 10(3)/[facility] 10/02/2024 3:24 PM LEAD SLOT TECHNICIAN [facility] ABSOLUTE EOSINOPHIL 0.01 0.00 - 0.40 10(3)/[facility] 10/02/2024 3:24 PM LEAD SLOT TECHNICIAN [facility] ABSOLUTE BASOPHILS 0.01 0.00 - 0.10 10(3)/[facility] 10/02/2024 3:24 PM LEAD SLOT TECHNICIAN [facility] NRBC PER 100 WBC 0 10/02/20 3:24 PM LEAD SLOT TECHNICIAN [facility] Blood Sub-Q Port Venou s Access Device (Medi-Port, Implanted Port) / Unknown 10/02/2024 3:08 PM LEAD SLOT TECHNICIAN 10/02/2024 3:08 PM LEAD SLOT TECHNICIAN Markus Finley MD HEMATOLOGY ORDERABLES Fi nal Result [facility] #[address] [place] [address] * THYROID STIMULATING HORMONE (TSH) (10/02/2024 3:08 PM LEAD SLOT TECHNICIAN) Only the most recent of5 resultswithin the time period is included. TSH 1.466 0.300 - 5.000 mIU/L 10/02/2024 3:59 PM LEAD SLOT TECHNICIAN [facility] Blood Sub-Q Port Venou s Access Device (Medi-Port, Implanted Port) / Unknown 10/02/2024 3:08 PM LEAD SLOT TECHNICIAN 10/02/2024 3:08 PM LEAD SLOT TECHNICIAN Markus Finley MD CHEMISTRY ORDERABLES Fin al Result [facility] [address] [place] [address] * (ABNORMAL) CMP (COMPREHENSIVE METABOLIC PANEL) (10/02/2024 3:08 PM LEAD SLOT TECHNICIAN) Only the most recent of12 resultswithin the time period is included. SODIUM 136 136 - 145 mmol/L 10/02/2024 3:40 PM LEAD SLOT TECHNICIAN [facility] POTASSIUM 4.5 3.5 - 5.1 mmol/L 10/02/2024 3:40 PM LEAD SLOT TECHNICIAN [facility] CHLORIDE 109(H) 98 - 107 mmol/L 10/02/2024 3:40 PM LEAD SLOT TECHNICIAN [facility] CO2, VENOUS 21(L) 22 - 30 mmol/L 10/02/2024 3:40 PM LEAD SLOT TECHNICIAN [facility] ANION GAP 10.5 <18.0 mmol/L 10/02/2024 3:40 PM LEAD SLOT TECHNICIAN [facility] GLUCOSE 118(H) 70 - 99 mg/dL 10/02/2024 3:40 PM LEAD SLOT TECHNICIAN [facility] BUN 21(H) 5 - 18 mg/dL 10/02/2024 3:40 PM LEAD SLOT TECHNICIAN [facility] CREATININE, BLOOD 0.94 0.60 - 1.00 mg/dL 10/02/2024 3:40 PM LEAD SLOT TECHNICIAN [facility] BUN/CREATININE RATIO 22(H) 12 - 20 ratio 10/02/2024 3:40 PM LEAD SLOT TECHNICIAN [facility] TOTAL PROTEIN 6.2(L) 6.3 - 8.2 g/dL 10/02/2024 3:40 PM LEAD SLOT TECHNICIAN [facility] ALBUMIN 3.9 3.5 - 5.0 g/dL 10/02/2024 3:40 PM LEAD SLOT TECHNICIAN [facility] A/G RATIO 1.7 1.0 - 2.2 10/02/2024 3:40 PM LEAD SLOT TECHNICIAN [facility] CALCIUM 9.0 8.7 - 10.5 mg/dL 10/02/2024 3:40 PM LEAD SLOT TECHNICIAN [facility] T BILI 0.2 0.2 - 1.2 mg/dL 10/02/2024 3:40 PM LEAD SLOT TECHNICIAN [facility] SGOT (AST) 17 5 - 34 U/L 10/02/2024 3:40 PM LEAD SLOT TECHNICIAN [facility] SGPT (ALT) 52 0 - 55 U/L 10/02/2024 3:40 PM LEAD SLOT TECHNICIAN [facility] ALKALINE PHOSPHATASE 45 40 - 150 U/L 10/02/2024 3:40 PM LEAD SLOT TECHNICIAN [facility] IS THE PATIENT REQUIRED TO BE FASTING? No 10/02/2024 3:40 PM LEAD SLOT TECHNICIAN [facility] GFR, ESTIMATED >60 >=60 10/02/2024 3:40 PM LEAD SLOT TECHNICIAN [facility] Comment: Creatinine Clearance is the preferred criteria for selecting drug dose adjustments in renally impaired patients. ??The GFR is provided as additional pertinent clinical information. GFR is reported in mL/min/1.73 sq m. Calculation based on the Chronic Kidney Disease Epidemiology Collaboration (CKD- EPI) equation refit without adjustment for race. GFR, EST. >60 >=60 024 3:40 PM LEAD SLOT TECHNICIAN [facility] GFR, EST. NONAFRICAN >60 >=60 10/02/2024 3:40 PM LEAD SLOT TECHNICIAN [facility] Blood Sub-Q Port Venou s Access Device (Medi-Port, Implanted Port) / Unknown 10/02/2024 3:08 PM LEAD SLOT TECHNICIAN 10/02/2024 3:08 PM LEAD SLOT TECHNICIAN us MarkusNorma Finley MD CHEMISTRY ORDERABLES Fin al Result [facility] [address] [place] [address] * MAGNESIUM (MG) (09/11/2024 1:32 PM LEAD SLOT TECHNICIAN) Only the most recent of2 resultswithin the time period is included. MAGNESIUM 2.1 1.6 - 2.6 mg/dL 09/11/2024 2:07 PM LEAD SLOT TECHNICIAN [facility] Blood Sub-Q Port Venou s Access Device (Medi-Port, Implanted Port) / Unknown 09/11/2024 1:32 PM LEAD SLOT TECHNICIAN 09/11/2024 1:33 PM LEAD SLOT TECHNICIAN us Markus Finley MD CHEMISTRY ORDERABLES Fin al Result [facility] [address] [place] [address] * PATHOLOGY SURGICAL (09/04/2024 1:02 PM CDT) Pathologist [facility] Case Report Surgical Pathology Report ? Case: [id number] ? Authorizing Provider: ??Zander Cha MD ? Collected: ? 09/04/2024 01:02 PM ? Ordering Location: ? [facility] - ?Received: ?09/04/2024 01:03 PM ? General Surgery - [facility] ? Pathologist: ? Romelia Horn MD PhD ? Specimen: ?Leg, Excision of skin lesion from left lower leg ? 09/06/2024 8:29 AM [facility] FINAL DIAGNOSIS Skin, left lower leg, lesion, excision: - Consistent with metastatic melanoma, 4 mm - Sufficient tumor cells present for molecular studies if clinically indicated 09/06/2024 8:29 AM [facility] Comment A round nodular tumor is present in the dermis. The tumor cells are large epithelioid with large pleomorphic nuclei and prominent nucleoli. There are scant pigments suggesting melanin. 09/06/2024 8:29 AM [facility] Pre-Operative Diagnosis Excision of skin lesion from left lower leg 09/06/2024 8:29 AM [facility] Gross Description A. Excision of skin lesion from left lower leg The specimen presents in a single formalin container for gross and microscopic examination, labeled with the patient's name, Dayanara Hilton, and designated as left lower leg [...] hours, 44 minutes. KS/sb 09/06/2024 8:29 AM [facility] Microscopic Description Microscopic examination was performed which supports the final diagnosis. All control tissues stained appropriately. 09/06/2024 8:29 AM [facility] Other LOWER LIMB STRUCTURE / Unknown Non-Phlebotomy Collection / Unknown 09/04/2024 1:02 PM CDT 09/04/2024 1:03 PM CDT us Zander Cha MD PATHOLOGY/CYTOLOGY ORDERABLES Fi nal Result [facility] [place] [address] * EXC SKIN MALIG 0.6-1CM TRUNK,ARM,LEG (09/04/2024 [...] 2 cm. ?? Surgeon: Zander Cha MD Soft Mud Molder: Debo Bush RN Anesthesia: ??3 cc 1% [...] tolerated procedure well. ?? Postop instructions given. us Zander Cha MD PROCEDURE/MINOR SURGICAL ORDERAB LES [...] Negative Negative, Invalid 08/24/2024 1:42 PM CDT [facility] Other STOOL SPECIMEN / Unknown Non-Phlebotomy Collection / Unknown 08/24/2024 11:39 AM CDT 08/24/2024 11:39 AM CDT Markus Finley MD MICROBIOLOGY - GENERAL O RDERABLES Final Result Performing Organization Address [facility] de Phone Number [facility] [address] [place] [address] * PET CT TUMOR IMAGING WHOLE BODY [...] AM T: ??08/16/2024 11:30 AM Report ID: [id number] Reading Location: ??[id number] Procedure Note Zachariah Carrizales MD - 08/16/2024 [...] Zachariah Carrizales M.D. LB: KRUNAL Report ID: [id number] Reading Location: [id number] IMPRESSION: Hypermetabolic left inguinal lymph node measuring [...] SUV of 1.1 compared to 4.1 previously. [facility] Luana Finley MD IMG PET Final Re sult * (ABNORMAL) BASIC METABOLIC PANEL W/ CALCIUM TOTAL (08/10/2024 11:20 AM CDT) Only the most recent of7 resultswithin the time period is included. SODIUM 133(L) 136 - 145 mmol/L 08/10/2024 11:56 AM CDT [facility] POTASSIUM 3.9 3.5 - 5.1 mmol/L 08/10/2024 11:56 AM CDT [facility] CHLORIDE 105 98 - 107 mmol/L 08/10/2024 11:56 AM CDT [facility] CO2, VENOUS 23 22 - 30 mmol/L 08/10/2024 11:56 AM CDT [facility] ANION GAP 8.9 <18.0 mmol/L 08/10/2024 11:56 AM CDT [facility] GLUCOSE 138(H) 70 - 99 mg/dL 08/10/2024 11:56 AM CDT [facility] BUN 15 5 - 18 mg/dL 08/10/2024 11:56 AM CDT [facility] CREATININE, BLOOD 0.86 0.60 - 1.00 mg/dL 08/10/2024 11:56 AM CDT [facility] BUN/CREATININE RATIO 17 12 - 20 ratio 08/10/2024 11:56 AM CDT [facility] CALCIUM 8.9 8.7 - 10.5 mg/dL 08/10/2024 11:56 AM CDT [facility] GFR, ESTIMATED >60 >=60 08/10/2024 11:56 AM CDT [facility] Comment: Creatinine Clearance is the preferred criteria for selecting drug dose adjustments in renally impaired patients. ??The GFR is provided as additional pertinent clinical information. GFR is reported in mL/min/1.73 sq m. Calculation based on the Chronic Kidney Disease Epidemiology Collaboration (CKD- EPI) equation refit without adjustment for race. GFR, EST. >60 >=60 11:56 AM CDT [facility] GFR, EST. NONAFRICAN >60 >=60 08/10/2024 11:56 AM CDT [facility] Blood Sub-Q Port Venou s Access Device (Medi-Port, Implanted Port) / Unknown 08/10/2024 11:20 AM CDT 08/10/2024 11:20 AM CDT us Lee Lan MD CHEMISTRY ORDERABLES Fin al Result Performing Organization Address City/[facility]/ZIP Co de Phone Number [facility] [address] [place] [address] * THYROXINE (T4) FREE (08/03/2024 4:32 AM CDT) T4 FREE 0.7 0.7 - 1.9 ng/dL 08/03/2024 7:20 AM CDT [facility] Blood Venipuncture / Unknown 08/03/2024 4:32 AM CDT 08/03/2024 6:28 AM CDT us Urbano Quiñonez MD CHEMISTRY ORDERABLES Final Result [facility] [address] [place] [address] * Triiodothyrinine (T3) Free (08/03/2024 4:32 AM CDT) FREE T3 1.6 1.6 - 3.9 pg/mL 08/03/2024 4:08 PM CDT [facility] Blood Venipuncture / Unknown 08/03/2024 4:32 AM CDT 08/03/2024 6:28 AM CDT us Urbano Quiñonez MD CHEMISTRY ORDERABLES Final Result [facility] [address] [place] [address], [place] * RHYTHM STRIP (08/03/2024 12:00 AM CDT) Only the most recent of14 resultswithin the time period is included. 08/03/2024 us Provider Scan IMG ECG ORDERABLES Final Result RESULTING AGENCY * Blood Culture #2 (08/01/2024 3:48 PM CDT) Only the most recent of2 resultswithin the time period is included. CULTURE RESULTS NO GROWTH WITHIN 5 DAYS, FINAL RESULT 08/06/2024 5:01 PM CDT [facility] Culture BLOOD SPECIMEN / Unknown Venipuncture / Unknown 08/01/2024 3:48 PM CDT 08/01/2024 4:10 PM CDT us Gael Morales MD MICROBIOLOGY - GENERAL ORD ERABLES Final Result [facility] [address] [place] [address], [place] * XR CHEST SINGLE VIEW PORTABLE [...] PM T: ??08/01/2024 2:59 PM Report ID: [id number] Reading Location: ??[id number] Procedure Note Nisreen Lara MD - 08/01/2024 [...] Nisreen Esteban M.D. FT: FT Report ID: [id number] Reading Location: [place] [address] IMPRESSION: No acute cardiopulmonary abnormality. Result [facility] Gael Morales MD IMG DIAGNOSTIC ORDERABLES Final [...] ?Care discussed with: admitting provider ?? Result [facility] Gael Morales MD PROCEDURE/MINOR SURGICAL O RDERABLES Final Result * RACHID MUIR HEPARIN/SST TOP TUBE (08/01/2024 1:30 PM CDT) Only the most recent of2 resultswithin the time period is included. Blood No Phlebotomy Charged / Unknown 08/01/2024 1:30 PM CDT 08/01/2024 1:30 PM CDT Result [facility] Gael Morales MD HEMATOLOGY ORDERABLES Susan l Result [facility] [address] [place] [address] * Gold Top Tube (08/01/2024 1:30 PM CDT) Blood No Phlebotomy Charged / Unknown 08/01/2024 1:30 PM CDT 08/01/2024 1:30 PM CDT Gael Morales MD CHEMISTRY ORDERABLES Final Result Performing Organization Address [facility] Co de Phone Number [facility] [address] [place] [address] * Blue Top Tube (08/01/2024 1:30 PM CDT) Blood No Phlebotomy Charged / Unknown 08/01/2024 1:30 PM CDT 08/01/2024 1:30 PM CDT Gael Morales MD HEMATOLOGY ORDERABLES Susan l Result Performing Organization Address [facility] de Phone Number [facility] [address] [place] [address] * Lavender Top Tube (08/01/2024 1:30 PM CDT) Blood No Phlebotomy Charged / Unknown 08/01/2024 1:30 PM CDT 08/01/2024 1:30 PM CDT Gael Morales MD HEMATOLOGY ORDERABLES Susan l Result Performing Organization Address [facility] de Phone Number [facility] [address] [place] [address] * Hepatitis Panel Acute (AHP) (07/29/2024 4:30 AM CDT) Pathologist [facility] HEPATITIS A IGM ANTIBODY NON DETECTED NON DETECTED 07/29/2024 3:37 PM CDT [facility] Comment: IGM Antibodies to HAV not detected. ??Does not exclude early acute or recovered HAV infection. HEP B CORE AB (IGM) NON DETECTED NON DETECTED 07/29/2024 3:37 PM CDT [facility] Comment:IGM anti-HBC not det ected. Does not exclude the possibility of exposure to or infection with HBV. HEPATITIS B SURFACE ANTIGEN NON DETECTED NON DETECTED 07/29/2024 3:37 PM CDT [facility] Comment:A nonreactive test r esult does not [...] 0.17 <1 S/CO 07/29/2024 3:37 PM CDT [facility] Comment: Signal/Cutoff ratio ??< 0.79 is Nondetected [...] HEMATOLOGY ORDERABLES Final Result Performing Organization Address City/[facility]/ZIP Co de Phone Number [facility] [address] [place] [address], [place] * C4 Complement (07/29/2024 4:30 AM CDT) C4 COMPLEMENT 23 15 - 57 mg/dL 07/29/2024 3:18 PM CDT [facility] Blood Venipuncture / Unknown 07/29/2024 4:30 AM CDT 07/29/2024 5:15 AM CDT Urbano Quiñonez MD CHEMISTRY ORDERABLES Final Result Performing Organization Address City/[facility]/ZIP Co de Phone Number [facility] [address] [place] [address], [place] * C3 Complement Globulin B-1C (07/29/2024 4:30 AM CDT) C3 COMPLEMENT 133 83 - 193 mg/dL 07/29/2024 3:18 PM CDT [facility] Blood Venipuncture / Unknown 07/29/2024 4:30 AM CDT 07/29/2024 5:15 AM CDT Urbano Quiñonez MD CHEMISTRY ORDERABLES Final Result Performing Organization Address City/[facility]/ZIP Co de Phone Number [facility] [address] [place] [address], [place] * GLOMERULAR BASEMENT MEMBRANE AB, IGG (07/28/2024 10:15 AM CDT) GLOMERULAR BASEMENT MEMBRANE (GBM) <0.2 <1.0 AI 08/07/2024 12:48 PM CDT [facility] Blood Venipuncture / Unknown 07/28/2024 10:15 AM CDT 07/28/2024 12:09 PM CDT Narrative [facility] - 08/07/2024 12:48 PM CDT Antibody testing was performed by multiplex flow immunoassay on the [employer] platform. us Urbano Quiñonez MD IMMUNOLOGY ORDERABLES Final Result Performing Organization Address [facility] Co de Phone Number [facility] [address] [place] [address], [place] * ANCA MPO PR3 (07/28/2024 10:15 AM CDT) PROTEINASE 3 AB <0.2 <1.0 AI 12:48 PM CDT [facility] MYELOPEROXIDASE AB <0.2 <1.0 AI 2023 12:48 PM CDT [facility] Blood Venipuncture / Unknown 07/28/2024 10:15 AM CDT 07/28/2024 12:09 PM CDT Urbano Quiñonez MD IMMUNOLOGY ORDERABLES Final Result [facility] [address] [place] [address], [place] * ANCA IFA SCREEN (07/28/2024 10:15 AM CDT) ANCA IFA SCREEN <1:20 <1:20 titer 07/30/20 12:14 PM CDT [facility] Comment: Expected result is < 1:10. ANCA TITER Not Applicable <1:20, Not Applicable titer 07/30/2024 12:14 PM CDT [facility] ANCA PATTERN Not Applicable 07/30/2024 12:14 PM CDT [facility] Comment: Antineutrophil cytoplasmic antibodies (ANCA) are found [...] Urbano Quiñonez MD IMMUNOLOGY ORDERABLES Final Result [facility] [address] [place] [address], * (ABNORMAL) Ur Protein/Creatinine Ratio (07/28/2024 10:15 AM CDT) UR PROTEIN RAND, QT 170.7 mg/dL 07/28/2024 12:27 PM CDT [facility] Comment:No reference range h as been established. Consider Clinical Correlation. URINE CREATININE 532.6 mg/dL 07/28/2024 12:27 PM CDT [facility] Comment:No reference range h as been established. Consider Clinical Correlation. URINE PROTEIN/CREATIN INE RATIO 0.32(H) <0.25 07/28/2024 12:27 PM [address]T [facility] Urine Non-Phlebotomy Collection / Unknown 07/28/2024 10:15 AM CDT 07/28/2024 12:09 PM CDT us Urbano Quiñonez MD URINE ORDERABLES Final Resu lt Performing Organization Address City/[facility]/ZIP Co de Phone Number [facility] [address] [place] [address] * Hepatitis C Antibody (07/28/2024 10:15 AM CDT) hepatitis C antibody 0.18 <1 S/CO 07/28/2024 10:27 PM CDT [facility] Comment: Signal/Cutoff ratio ??< 0.79 is Nondetected [...] CHEMISTRY ORDERABLES Final Result Performing Organization Address [facility] Co de Phone Number [facility] [address] [place] [address], [place] * Antinuclear Antibody (BARRETT), Titer If Pos (07/28/2024 10:15 AM CDT) BARRETT SCREEN Negative Negative titer 07/30/2024 11:28 AM CDT [facility] Comment: Antinuclear autoantibodies not detected by IFA at a 1:80 screening dilution of HEp-2 cells. BARRETT TITER Not Applicable Negative, See comment, Not Applicable titer 07/30/2024 11:28 AM CDT [facility] Comment: Antinuclear autoantibodies not detected by IFA at a 1:80 screening dilution of HEp-2 cells. BARRETT PATTERN NOT APPLICABLE 07/30/2024 11:28 AM CDT [facility] Blood Venipuncture / Unknown 07/28/2024 10:15 AM CDT 07/28/2024 12:09 PM CDT Urbano Quiñonez MD IMMUNOLOGY ORDERABLES Final Result Performing Organization Address [facility] Co de Phone Number [facility] [address] [place] [address], [place] from Last [address] [place] [address] [place]ICA[place] Advance Directives * Full Code (Latest Code [...] measures to stabilize the patient. Care Teams Track Walker Relationship Specialty Start Date End Date Pritesh Chu MD [address] [address] PCP - General Family Medicine 04/18/24 Markus Finley MD [address] [place] [address] Consulting Physician Medical Oncology 04/18/24 Zander Cha MD #[address] [address] Consulting Physician Colon and Rectal Surgery 08/24/24
--- OUTSIDE RECORDS SUMMARY | 2024-10-27 02:43 | XMS_ITS | Encounter Summary ---
Author Organization [facility] Address [address] [facility] [place] [address] Phone Care Team Providers Care Note Taker Name Role Phone Pritesh Chu MD Primary Care Provider [phone] Markus Finley MD Unavailable [phone] Zander Cha MD Unavailable Reason for Visit * Reason Onset Date Comments Medication Refill 09/20/2024 Encounter Details Date Type Department Care Team (Late st Contact Info) Description 09/20/2024 Refill [facility] Oncology Services [address] [place] [phone] Markus Finley MD [address] [place] [address] Medication Refill Social History Tobacco Use Types Packs/Day Years Used Date Smoking Tobacco: Former Cigarettes 0.5 5.6 S tarted: 04/18/2016 Smokeless Tobacco: Never Alcohol Use Standard Drinks/Week Comments Not Currently 0 (1 standard drink = 0.6 oz pur e alcohol) quit 2023 [facility] Utilities Answer Date Recorded In the past 12 months has th e electric, gas, oil, or water [employer] threatened to shut off services in your home? Patient declined 08/01/2024 Social Connection and Isolation Panel [NHANES] A nswer Date Recorded In a typical week, how many times do you talk on the phone with family, friends, or neighbors? Patient declined 08/01/2024 How often do you get togethe r with friends or relatives? Patient declined 08/01/2024 How often do you attend religion or methodist serv ices? Patient declined 08/01/2024 [...] medical care, and heating? Patient declined 08/01/2024 [facility] [...] time in the past 12 m [facility], were you homeless or living in a [...] st Contact Info) Description 11/15/2024 1:00 PM AIRCRAFT BODY REPAIRER Lab [facility] Laboratory Services [address] [facility] [place] [address] Markus Finley MD [address] [place] [address] 11/15/2024 2:00 PM AIRCRAFT BODY REPAIRER [facility]ointment [facility] [address] [facility] [place] [address] Markus Finley MD [address] [place] [address] Discharge Disposition: Discharged to home or Selfcare documented as of this encounter Visit Diagnoses Not on filedocumented in this encounter Care Teams Note Taker Relationship Specialty Start Date End Date Pritesh Chu MD [address] [place] [address] PCP - General Family Medicine 04/18/24 Markus Finley MD [address] [place] [address] Consulting Physician Medical Oncology 04/18/24 Zander Cha MD #[address] [address] Consulting Physician Colon and Rectal Surgery 08/24/24 documented as of this encounter
--- OUTSIDE RECORDS SUMMARY | 2024-10-27 02:43 | XMS_ITS | Encounter Summary ---
Author Organization [facility] Address [address] [facility] [place] [address] Phone Care Team Providers Care Traffic Division Commanding Officer Name Role Phone Pritesh Chu MD Primary Care Provider [phone] Markus Finley MD Unavailable [phone] Zander Cha MD Unavailable Reason for Referral * Radiology Services (STAT with Interpretation) - Pending Review Specialty Diagnoses / Procedures Referred By Contross t Referred To Contact Radiology Diagnoses Metastatic melanoma (HCC) New daily persistent headache Procedures MRI BRAIN W/WO CONTRAST Markus Finley MD [address] [place] [address] Phone: tel: fax: Referral ID Status Reason Start Date Expiration Date V isits Requested Visits Authorized [id number] Pending Review 10/02/2024 1 1 ET CLOSER Encounter Details Date Type Department Care Team (Late st Contact Info) Description 10/02/2024 3:20 PM POCKET CLOSER [facility] [address] [place] [address] Markus Finley MD [address] [place] [address] Metastatic melanoma (HCC) (Primary Dx); New daily [...] quit 2023 [facility] [employer] Answer Date Recorded In the past 12 [...] often do you attend chur ch or yarsanism services? Never 09/25/2024 Do you belong to [...] medical care, and heating? Somewhat hard 09/25/2024 [place] [facility] - Occupational Stress [...] living in a fci (including now)? No 09/25/2024 Sexually Active Control [...] Comments Blood Pressure 137/91 10/02/2024 2:56 PM POCKET CLOSER Pulse 76 10/02/2024 2:56 PM POCKET CLOSER Temperature 36.6 ??C (97.8 ??F) 10/02/2024 2:56 PM CS T Respiratory Rate 16 10/02/2024 2:56 PM POCKET CLOSER Oxygen Saturation 98% 10/02/2024 2:56 PM POCKET CLOSER Inhaled Oxygen Concentration - - Weight 119.7 kg (263 lb 12.8 oz) 10/02/2024 2:56 PM POCKET CLOSER Height 167.6 cm (5' 6 ) 10/02/2024 2:56 PM POCKET CLOSER Body Mass Index 42.58 10/02/2024 2:56 PM POCKET CLOSER documented in this encounter Progress Notes * [...] received on 07/17/24. 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 Patient was discharged home with plans to continue IV NS through infusion clinic along with Prednisone 100 mg po BID plus Levothyroxine 100 mcg po AM. Oral steroids were decreased to Prednisone 100 mg AM with 20 mg PM on 08/10/24. 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 abdomen pelvis done at [facility] on 06/27/2024 No evidence of appendicitis. [...] send her to the ENT group at [facility]. Follow up in 3 weeks with [...] for Markus Finley MD. 10/02/2024, 3:31 PM POCKET CLOSER ET CLOSER documented in this encounter Plan of Treatment Upcoming Encounters Date Type Department Care Team (Late st Contact Info) Description 11/15/2024 1:00 PM POCKET CLOSER Lab [facility] [address] [place] [phone] Markus Finley MD [address] [place] [address] 11/15/2024 2:00 PM POCKET CLOSER [facility]ointment [facility] [address] [place] [phone] Markus Finley MD [address] [place], [place] [address] Discharge Disposition: Discharged to home or Selfcare Scheduled Orders Name Type Priority Associated Diagnoses Order Schedule MRI BRAIN W/WO CONTRAST Imaging Stat with Interpretation Metastatic melanoma (HCC) New daily persistent headache Expected: 10/02/2024, Expires: 04/01/2026 documented as of this encounter Visit Diagnoses Diagnosis Metastatic melanoma (HCC)- Primary Melanoma of skin, site unspecified New daily persistent headache documented in this encounter Care Teams Traffic Division Commanding Officer Relationship Specialty Start Date End Date Pritesh Chu MD [address] [place] [address] PCP - General Family Medicine 04/18/24 Markus Finley MD [address] [place] [address] Consulting Physician Medical Oncology 04/18/24 Zander Cha MD #[address] [address] Consulting Physician Colon and Rectal Surgery 08/24/24 documented as of this encounter
--- OUTSIDE RECORDS SUMMARY | 2024-10-27 02:43 | XMS_ITS | Encounter Summary ---
Author Organization [employer] Care Team Providers Care Pattern Drum Maker Name Role Phone Pritesh Chu MD Primary Care Provider [phone] Markus Finley MD Unavailable [phone] Zander Cha MD Unavailable Encounter Details Date Type Department Care Team (Latest Contact Info) Description 09/07/2024 Travel Social History Tobacco Use Types Packs/Day Years Used Date Smoking Tobacco: Former Cigarettes 0.5 5.6 S tarted: 04/18/2016 Smokeless Tobacco: Never Alcohol Use Standard Drinks/Week Comments Not Currently 0 (1 standard drink = 0.6 oz pur e alcohol) quit 2023 [facility] Utilities Answer Date Recorded In the past 12 months has [employer], gas, oil, or water [employer] threatened to shut off services in your home? Patient declined 08/01/2024 Social Connection and Isolation Panel [NHANES] A nswer Date Recorded In a typical week, how many times do you talk on the phone with family, friends, or neighbors? Patient declined 08/01/2024 How often do you get togethe r with friends or relatives? Patient declined 08/01/2024 How often do you attend congregation or christianity serv ices? Patient declined 08/01/2024 Do you [...] declined 08/01/2024 [facility] - Occupational Stress Questionnaire Answer Date [...] a alf (including now)? Patient declined 08/01/2024 Sexually Active [...] st Contact Info) Description 11/15/2024 1:00 PM PIPE LINE WALKER Lab [facility] [address] [place] [address] Markus Finley MD [address] [place] [address] 11/15/2024 2:00 PM PIPE LINE WALKER [facility]ointment [facility] [address] [place] [address] Markus Finley MD [address] [place] [address] Discharge Disposition: Discharged to home or Selfcare documented as of this encounter Visit Diagnoses Not on filedocumented in this encounter Care Teams Pattern Drum Maker Relationship Specialty Start Date End Date Pritesh Chu MD [address] [place], [place] [id number] PCP - General Family Medicine 04/18/24 Markus Finley MD [address] [place] [address] Consulting Physician Medical Oncology 04/18/24 Zander Cha MD [address] [place] [address] Consulting Physician Colon and Rectal Surgery 08/24/24 documented as of this encounter
--- OUTSIDE RECORDS SUMMARY | 2024-10-27 02:43 | XMS_ITS | Encounter Summary ---
Author Organization [facility] Address [address] [facility] [place] [address] Phone Care Team Providers Care Product Marketer Name Role Phone Pritesh Chu MD Primary Care Provider [phone] Markus Finley MD Unavailable [phone] Zander Cha MD Unavailable Encounter Details Date Type Department Care Team (Late st Contact Info) Description 09/11/2024 1:30 PM SOCIAL SCIENCES CHAIR Clinical Support [facility] Oncology Services [address] [place] [phone] Markus Finley MD [address] [place] [address] Metastatic melanoma (HCC) Discharge Disposition: Discharged to home or Selfcare Social History Tobacco Use Types Packs/Day Years Used Date Smoking Tobacco: Former Cigarettes 0.5 5.6 S tarted: 04/18/2016 Smokeless Tobacco: Never Alcohol Use Standard Drinks/Week Comments Not Currently 0 (1 standard drink = 0.6 oz pur e alcohol) quit 2023 [facility] Utilities Answer Date Recorded In the past 12 months has th e electric, gas, oil, or water [employer] threatened to shut off services in your home? Patient declined 08/01/2024 Social Connection and Isolation Panel [NHANES] A nswer Date Recorded In a typical week, how many times do you talk on the phone with family, friends, or neighbors? Patient declined 08/01/2024 How often do you get togethe r with friends or relatives? Patient declined 08/01/2024 How often do you attend pentecostalism or anabaptism serv ices? Patient declined 08/01/2024 [...] medical care, and heating? Patient declined 08/01/2024 [facility] - Occupational Stress Questionnaire [...] Comments Blood Pressure 131/90 09/11/2024 1:44 PM SOCIAL SCIENCES CHAIR Pulse 83 09/11/2024 1:44 PM SOCIAL SCIENCES CHAIR Temperature 36.6 ??C (97.8 ??F) 09/11/2024 1:44 PM CS T Respiratory Rate 18 09/11/2024 1:44 PM SOCIAL SCIENCES CHAIR Oxygen Saturation 98% 09/11/2024 1:44 PM SOCIAL SCIENCES CHAIR Inhaled Oxygen Concentration - - Weight 114.2 kg (251 lb 12.8 oz) 09/11/2024 1:44 PM SOCIAL SCIENCES CHAIR Height - - Body Mass Index 40.64 [...] aid placed. Pt discharged in stable condition. AL SCIENCES CHAIR documented in this encounter Plan of Treatment Upcoming Encounters Date Type Department Care Team (Late st Contact Info) Description 11/15/2024 1:00 PM SOCIAL SCIENCES CHAIR [facility] [address] [place] [address] Markus Finley MD [address] [place], [place] [id number] 11/15/2024 2:00 PM SOCIAL SCIENCES CHAIR [facility] 1 [place] [address] Markus Finley MD [address] [place] [address] Discharge Disposition: Discharged to home or Selfcare documented as of this encounter Procedures Procedure Name Priority Date/Time Associated Diagnosis Comments CBC WITH AUTO DIFFERENTIAL STAT 09/11/2024 1:32 PM SOCIAL SCIENCES CHAIR Metastatic melanoma (HCC) MAGNESIUM (MG) Routine 09/11/2024 1:32 PM SOCIAL SCIENCES CHAIR CMP (COMPREHENSIVE METABOLIC PANEL) STAT 09/11/2024 1:32 PM SOCIAL SCIENCES CHAIR Metastatic melanoma (HCC) COMPLETE BLOOD COUNT (CBC) WITH DIFF STAT 09/11/2024 1:32 PM SOCIAL SCIENCES CHAIR Metastatic melanoma (HCC) documented in this encounter Results * (ABNORMAL) CBC WITH AUTO DIFFERENTIAL (09/11/2024 1:32 PM SOCIAL SCIENCES CHAIR) WBC 9.23 4.00 - 12.00 10(3)/mcL 09/11/2024 2:07 PM SOCIAL SCIENCES CHAIR [facility] RBC 4.07 3.80 - 5.30 10(6)/mcL 09/11/2024 2:07 PM [facility] HEMOGLOBIN (HGB) 12.9 12.0 - 15.8 g/dL 09/11/2024 2:07 PM [facility] HEMATOCRIT (HCT) 38.8 36.0 - 47.0 % 09/11/2024 2:07 PM [facility] MCV 95.3 82.0 - 96.0 fL 09/11/2024 2:07 PM [facility] MCH 31.7 26.0 - 34.0 pg 09/11/2024 2:07 PM [facility] MCHC 33.2 31.0 - 36.0 g/dL 09/11/2024 2:07 PM [facility] PLATELET COUNT 198 140 - 440 10(3)/mcL 09/11/2024 2:07 PM [facility] RDW 15.1 11.8 - 15.5 % 09/11/2024 2:07 PM [facility] MPV 9.5(L) 9.7 - 12.4 fL 09/11/2024 2:07 PM [facility] NEUTROPHILS 93.1(H) 47.0 - 73.0 % 09/11/2024 2:07 PM [facility] LYMPHOCYTES 3.8(L) 18.0 - 42.0 % 09/11/2024 2:07 PM [facility] MONOCYTES 3.0(L) 4.0 - 12.0 % 09/11/2024 2:07 PM [facility] EOSINOPHILS 0.0 0.0 - 5.0 % 09/11/2024 2:07 PM [facility] BASOPHILS 0.1 0.0 - 1.0 % 09/11/2024 2:07 PM [facility] ABSOLUTE NEUTROPHILS 8.59(H) 1.60 - 7.70 10(3)/mcL 09/11/2024 2:07 PM [facility] ABSOLUTE LYMPHOCYTES 0.35(L) 1.30 - 3.20 10(3)/mcL 09/11/2024 2:07 PM SOCIAL SCIENCES CHAIR [facility] ABSOLUTE MONOCYTES 0.28 0.20 - 1.00 10(3)/mcL 09/11/2024 2:07 PM SOCIAL SCIENCES CHAIR [facility] ABSOLUTE EOSINOPHIL 0.00 0.00 - 0.40 10(3)/mcL 09/11/2024 2:07 PM SOCIAL SCIENCES CHAIR [facility] ABSOLUTE BASOPHILS 0.01 0.00 - 0.10 10(3)/mcL 09/11/2024 2:07 PM SOCIAL SCIENCES CHAIR [facility] NRBC PER 100 WBC 0 09/11/20 24 2:07 PM [facility] RESULTS ARE CONSISTENT WITH PERIPHERAL SMEAR REVIEW Yes 09/11/2024 2:07 PM [facility] Blood Sub-Q Port Venou s Access Device (Medi-Port, Implanted Port) / Unknown 09/11/2024 1:32 PM SOCIAL SCIENCES CHAIR 09/11/2024 1:33 PM SOCIAL SCIENCES CHAIR us Markus Luana Finley MD HEMATOLOGY ORDERABLES Fi nal Result [facility] [address] [place] [address] * (ABNORMAL) CMP (COMPREHENSIVE METABOLIC PANEL) (09/11/2024 1:32 PM SOCIAL SCIENCES CHAIR) SODIUM 139 136 - 145 mmol/L 09/11/2024 2:07 PM SOCIAL SCIENCES CHAIR [facility] POTASSIUM 3.8 3.5 - 5.1 mmol/L 09/11/2024 2:07 PM SOCIAL SCIENCES CHAIR [facility] CHLORIDE 107 98 - 107 mmol/L 09/11/2024 2:07 PM [facility] CO2, VENOUS 22 22 - 30 mmol/L 09/11/2024 2:07 PM SOCIAL SCIENCES CHAIR [facility] ANION GAP 13.8 <18.0 mmol/L 09/11/2024 2:07 PM [facility] GLUCOSE 145(H) 70 - 99 mg/dL 09/11/2024 2:07 PM [facility] BUN 25(H) 5 - 18 mg/dL 09/11/2024 2:07 PM [facility] CREATININE, BLOOD 0.87 0.60 - 1.00 mg/dL 09/11/2024 2:07 PM [facility] BUN/CREATININE RATIO 29(H) 12 - 20 ratio 09/11/2024 2:07 PM [facility] TOTAL PROTEIN 6.2(L) 6.3 - 8.2 g/dL 09/11/2024 2:07 PM [facility] ALBUMIN 4.0 3.5 - 5.0 g/dL 09/11/2024 2:07 PM [facility] A/G RATIO 1.8 1.0 - 2.2 09/11/2024 2:07 PM [facility] CALCIUM 8.9 8.7 - 10.5 mg/dL 09/11/2024 2:07 PM [facility] T BILI 0.5 0.2 - 1.2 mg/dL 09/11/2024 2:07 PM [facility] SGOT (AST) 13 5 - 34 U/L 09/11/2024 2:07 PM [facility] SGPT (ALT) 56(H) 0 - 55 U/L 09/11/2024 2:07 PM [facility] ALKALINE PHOSPHATASE 58 40 - 150 U/L 09/11/2024 2:07 PM [facility] IS THE PATIENT REQUIRED TO BE FASTING? No 09/11/2024 2:07 PM [facility] GFR, ESTIMATED >60 >=60 09/11/2024 2:07 PM [facility] Comment: Creatinine Clearance is the preferred criteria for selecting drug dose adjustments in renally impaired patients. ??The GFR is provided as additional pertinent clinical information. GFR is reported in mL/min/1.73 sq m. Calculation based on the Chronic Kidney Disease Epidemiology Collaboration (CKD- EPI) equation refit without adjustment for race. GFR, EST. >60 >=60 024 2:07 PM SOCIAL SCIENCES CHAIR [facility] GFR, EST. NONAFRICAN >60 >=60 09/11/2024 2:07 PM SOCIAL SCIENCES CHAIR [facility] Blood Sub-Q Port Venou s Access Device (Medi-Port, Implanted Port) / Unknown 09/11/2024 1:32 PM SOCIAL SCIENCES CHAIR 09/11/2024 1:33 PM SOCIAL SCIENCES CHAIR Markus Finley MD CHEMISTRY ORDERABLES Fin al Result Performing Organization Address City/[facility]/ZIP Co de Phone Number [facility] [address] [place] [address] * MAGNESIUM (MG) (09/11/2024 1:32 PM SOCIAL SCIENCES CHAIR) MAGNESIUM 2.1 1.6 - 2.6 mg/dL 09/11/2024 2:07 PM SOCIAL SCIENCES CHAIR [facility] Blood Sub-Q Port Venou s Access Device (Medi-Port, Implanted Port) / Unknown 09/11/2024 1:32 PM SOCIAL SCIENCES CHAIR 09/11/2024 1:33 PM SOCIAL SCIENCES CHAIR Markus Finley MD CHEMISTRY ORDERABLES Fin al Result Performing Organization Address City/[facility]/ZIP Co de Phone Number [facility] [address] [place] [address] documented in this encounter Visit Diagnoses Diagnosis Metastatic melanoma (HCC) Melanoma of skin, site unspecified documented in this encounter Administered Medications Inactive Administered Medications - up to 3 most recent administrations Medication Order MAR Action Action Date Dose Rate Site 0.9 % sodium chloride solution at 999 mL/hr, Intravenous, ONCE, 1 dose, On Tue09/11/24 at 1400Indications:Metastatic melanoma (HCC) New Bag 09/11/2024 1:36 PM SOCIAL SCIENCES CHAIR 999 mL/hr Heparin Na (Pork) Lock Flsh PF SOLN 50 Units 50 Units, Intravenous, PRN, Starting on Tue09/11/24 at 1333, Until Tue09/11/24 at 1745, Line CareIndications:Metastatic melanoma (HCC) Given 09/11/2024 2:45 PM SOCIAL SCIENCES CHAIR 50 Units documented in this encounter Care Teams Product Marketer Relationship Specialty Start Date End Date Pritesh Chu MD [address] [address] PCP - General Family Medicine 04/18/24 Markus Finley MD [address] [place] [address] Consulting Physician Medical Oncology 04/18/24 Zander Cha MD [address] [address] Consulting Physician Colon and Rectal Surgery 08/24/24 documented as of this encounter
--- OUTSIDE RECORDS SUMMARY | 2024-10-27 02:43 | XMS_ITS | Encounter Summary ---
Author Organization [facility] Address [address] [facility] [place] [address] Phone Care Team Providers Care Engineering Director Name Role Phone Pritesh Chu MD Primary Care Provider [phone] Markus Finley MD Unavailable [phone] Zander Cha MD Unavailable Reason for Visit * Episode Based Medications (Routine) - Closed Specialty Diagnoses / Procedures Referred By Contross t Referred To Contact Diagnoses Metastatic melanoma (HCC) Markus Finley MD [address] [place] [address] Phone: tel: fax: [facility] Oncology Services [address] [place] [address] Phone: tel: fax: Referral ID Status Reason Start Date Expiration Date Visits Re quested Visits Authorized [id number] Closed 04/19/2024 1 30 Encounter Details Date Type Department Care Team (Late st Contact Info) Description 10/02/2024 2:30 PM CONTACT LENS FLASHING PUNCHER Clinical Support [facility] Oncology Services [address] [place] [address] Markus Finley MD [address] [place] [address] Metastatic melanoma (HCC) (Primary Dx) Discharge Disposition: Discharged to home or Selfcare Social History Tobacco Use Types Packs/Day Years Used Date Smoking Tobacco: Former Cigarettes 0.5 5.6 S tarted: 04/18/2016 Smokeless Tobacco: Never Alcohol Use Standard Drinks/Week Comments Not Currently 0 (1 standard drink = 0.6 oz pur e alcohol) quit 2023 [facility] Utilities Answer Date Recorded In the past 12 months has [employer] electric, gas, oil, or water company threatened [...] often do you attend chur ch or congregation services? Never 09/25/2024 Do you belong to any clubs o r organizations such as taoism groups, unions, fraternal or athletic groups, or [...] medical care, and heating? Somewhat hard 09/25/2024 [facility] [facility] Answer Date [...] Comments Blood Pressure 137/91 10/02/2024 2:44 PM CONTACT LENS FLASHING PUNCHER Pulse 76 10/02/2024 2:44 PM CONTACT LENS FLASHING PUNCHER Temperature 36.6 ??C (97.8 ??F) 10/02/2024 2:44 PM CS T Respiratory Rate 16 10/02/2024 2:44 PM CONTACT LENS FLASHING PUNCHER Oxygen Saturation 98% 10/02/2024 2:44 PM CONTACT LENS FLASHING PUNCHER Inhaled Oxygen Concentration - - Weight 119.7 kg (263 lb 12.8 oz) 10/02/2024 2:44 PM CONTACT LENS FLASHING PUNCHER Height - - Body Mass Index 42.58 09/11/2024 2:01 PM CONTACT LENS FLASHING PUNCHER documented in this encounter Miscellaneous Notes * [...] with bandaid. Pt left in safe disposition. ACT LENS FLASHING PUNCHER documented in this encounter Plan of Treatment Upcoming Encounters Date Type Department Care Team (Late st Contact Info) Description 11/15/2024 1:00 PM CONTACT LENS FLASHING PUNCHER [facility] [address] [place] [address] Markus Finley MD [address] [place] [address] 11/15/2024 2:00 PM CONTACT LENS FLASHING PUNCHER [facility] [address] [place] [address] Markus Finley MD [address] [place] [address] Discharge Disposition: Discharged to home or Selfcare documented as of this encounter Procedures Procedure Name Priority Date/Time Associated Diagnosis Comments CBC WITH AUTO DIFFERENTIAL STAT 10/02/2024 3:08 PM CONTACT LENS FLASHING PUNCHER Metastatic melanoma (HCC) THYROID STIMULATING HORMONE (TSH) STAT 10/02/2024 3:08 PM CONTACT LENS FLASHING PUNCHER Metastatic melanoma (HCC) CMP (COMPREHENSIVE METABOLIC PANEL) STAT 10/02/2024 3:08 PM CONTACT LENS FLASHING PUNCHER Metastatic melanoma (HCC) COMPLETE BLOOD COUNT (CBC) WITH DIFF STAT 10/02/2024 3:08 PM CONTACT LENS FLASHING PUNCHER Metastatic melanoma (HCC) documented in this encounter Results * (ABNORMAL) CBC WITH AUTO DIFFERENTIAL (10/02/2024 3:08 PM CONTACT LENS FLASHING PUNCHER) WBC 6.72 4.00 - 12.00 10(3)/mcL 10/02/2024 3:24 PM CONTACT LENS FLASHING PUNCHER [facility] RBC 3.73(L) 3.80 - 5.30 10(6)/mcL 10/02/2024 3:24 PM CONTACT LENS FLASHING PUNCHER [facility] HEMOGLOBIN (HGB) 11.9(L) 12.0 - 15.8 g/dL 10/02/2024 3:24 PM CONTACT LENS FLASHING PUNCHER [facility] HEMATOCRIT (HCT) 36.2 36.0 - 47.0 % 10/02/2024 3:24 PM CONTACT LENS FLASHING PUNCHER [facility] MCV 97.1(H) 82.0 - 96.0 fL 10/02/2024 3:24 PM CONTACT LENS FLASHING PUNCHER [facility] MCH 31.9 26.0 - 34.0 pg 10/02/2024 3:24 PM CONTACT LENS FLASHING PUNCHER [facility] MCHC 32.9 31.0 - 36.0 g/dL 10/02/2024 3:24 PM CONTACT LENS FLASHING PUNCHER [facility] PLATELET COUNT 204 140 - 440 10(3)/mcL 10/02/2024 3:24 PM CONTACT LENS FLASHING PUNCHER [facility] RDW 14.3 11.8 - 15.5 % 10/02/2024 3:24 PM CONTACT LENS FLASHING PUNCHER [facility] MPV 10.6 9.7 - 12.4 fL 10/02/2024 3:24 PM CONTACT LENS FLASHING PUNCHER [facility] NEUTROPHILS 83.7(H) 47.0 - 73.0 % 10/02/2024 3:24 PM CONTACT LENS FLASHING PUNCHER [facility] LYMPHOCYTES 10.7(L) 18.0 - 42.0 % 10/02/2024 3:24 PM CONTACT LENS FLASHING PUNCHER [facility] MONOCYTES 5.4 4.0 - 12.0 % 10/02/2024 3:24 PM [facility] EOSINOPHILS 0.1 0.0 - 5.0 % 10/02/2024 3:24 PM [facility] BASOPHILS 0.1 0.0 - 1.0 % 10/02/2024 3:24 PM [facility] ABSOLUTE NEUTROPHILS 5.62 1.60 - 7.70 10(3)/[facility] 10/02/2024 3:24 PM [facility] ABSOLUTE LYMPHOCYTES 0.72(L) 1.30 - 3.20 10(3)/[facility] 10/02/2024 3:24 PM [facility] ABSOLUTE MONOCYTES 0.36 0.20 - 1.00 10(3)/[facility] 10/02/2024 3:24 PM [facility] ABSOLUTE EOSINOPHIL 0.01 0.00 - 0.40 10(3)/[facility] 10/02/2024 3:24 PM [facility] ABSOLUTE BASOPHILS 0.01 0.00 - 0.10 10(3)/[facility] 10/02/2024 3:24 PM [facility] NRBC PER 100 WBC 0 10/02/20 3:24 PM [facility] Blood Sub-Q Port Venou s Access Device (Medi-Port, Implanted Port) / Unknown 10/02/2024 3:08 PM CONTACT LENS FLASHING PUNCHER 10/02/2024 3:08 PM [facility] Markus Finley MD HEMATOLOGY ORDERABLES Fi nal Result [facility] [address] [place] [address] * THYROID STIMULATING HORMONE (TSH) (10/02/2024 3:08 PM CONTACT LENS FLASHING PUNCHER) TSH 1.466 0.300 - 5.000 mIU/L 10/02/2024 3:59 PM CONTACT LENS FLASHING PUNCHER [facility] Blood Sub-Q Port Venou s Access Device (Medi-Port, Implanted Port) / Unknown 10/02/2024 3:08 PM CONTACT LENS FLASHING PUNCHER 10/02/2024 3:08 PM CONTACT LENS FLASHING PUNCHER Markus Finley MD CHEMISTRY ORDERABLES Fin al Result Performing Organization Address [facility]/ZIP Co de Phone Number [facility] [address] [place] [address] * (ABNORMAL) CMP (COMPREHENSIVE METABOLIC PANEL) (10/02/2024 3:08 PM CONTACT LENS FLASHING PUNCHER) SODIUM 136 136 - 145 mmol/L 10/02/2024 3:40 PM CONTACT LENS FLASHING PUNCHER [facility] POTASSIUM 4.5 3.5 - 5.1 mmol/L 10/02/2024 3:40 PM CONTACT LENS FLASHING PUNCHER [facility] CHLORIDE 109(H) 98 - 107 mmol/L 10/02/2024 3:40 PM CONTACT LENS FLASHING PUNCHER [facility] CO2, VENOUS 21(L) 22 - 30 mmol/L 10/02/2024 3:40 PM CONTACT LENS FLASHING PUNCHER [facility] ANION GAP 10.5 <18.0 mmol/L 10/02/2024 3:40 PM CONTACT LENS FLASHING PUNCHER [facility] GLUCOSE 118(H) 70 - 99 mg/dL 10/02/2024 3:40 PM CONTACT LENS FLASHING PUNCHER [facility] BUN 21(H) 5 - 18 mg/dL 10/02/2024 3:40 PM CONTACT LENS FLASHING PUNCHER [facility] CREATININE, BLOOD 0.94 0.60 - 1.00 mg/dL 10/02/2024 3:40 PM [facility] BUN/CREATININE RATIO 22(H) 12 - 20 ratio 10/02/2024 3:40 PM [facility] TOTAL PROTEIN 6.2(L) 6.3 - 8.2 g/dL 10/02/2024 3:40 PM [facility] ALBUMIN 3.9 3.5 - 5.0 g/dL 10/02/2024 3:40 PM [facility] A/G RATIO 1.7 1.0 - 2.2 10/02/2024 3:40 PM [facility] CALCIUM 9.0 8.7 - 10.5 mg/dL 10/02/2024 3:40 PM [facility] T BILI 0.2 0.2 - 1.2 mg/dL 10/02/2024 3:40 PM [facility] SGOT (AST) 17 5 - 34 U/L 10/02/2024 3:40 PM [facility] SGPT (ALT) 52 0 - 55 U/L 10/02/2024 3:40 PM [facility] ALKALINE PHOSPHATASE 45 40 - 150 U/L 10/02/2024 3:40 PM [facility] IS THE PATIENT REQUIRED TO BE FASTING? No 10/02/2024 3:40 PM [facility] GFR, ESTIMATED >60 >=60 10/02/2024 3:40 PM [facility] Comment: Creatinine Clearance is the preferred criteria for selecting drug dose adjustments in renally impaired patients. ??The GFR is provided as additional pertinent clinical information. GFR is reported in mL/min/1.73 sq m. Calculation based on the Chronic Kidney Disease Epidemiology Collaboration (CKD- EPI) equation refit without adjustment for race. GFR, EST. >60 >=60 024 3:40 PM [facility] GFR, EST. NONAFRICAN >60 >=60 10/02/2024 3:40 PM [facility] Blood Sub-Q Port Venou s Access Device (Medi-Port, Implanted Port) / Unknown 10/02/2024 3:08 PM CONTACT LENS FLASHING PUNCHER 10/02/2024 3:08 PM CONTACT LENS FLASHING PUNCHER Markus Finley MD CHEMISTRY ORDERABLES Fin al Result [facility] [address] [place] [address] documented in this encounter Visit Diagnoses Diagnosis [...] melanoma (HCC) New Bag 10/02/2024 2:45 PM CONTACT LENS FLASHING PUNCHER 1,000 mL 999 mL/hr Heparin Na (Pork) Lock Flsh PF SOLN 50 Units 50 Units, Intravenous, ONCE, 1 dose, On Tue10/02/24 at 1530Indications:Metastatic melanoma (HCC) Given 10/02/2024 2:01 PM CONTACT LENS FLASHING PUNCHER 50 Units documented in this encounter Care Teams Engineering Director Relationship Specialty Start Date End Date Pritesh Chu MD [address] [address] PCP - General Family Medicine 04/18/24 Markus Finley MD [address] [place] [address] Consulting Physician Medical Oncology 04/18/24 Zander Cha MD [address] [address] Consulting Physician Colon and Rectal Surgery 08/24/24 documented as of this encounter
--- OUTSIDE RECORDS SUMMARY | 2024-10-27 02:43 | XMS_ITS | Encounter Summary ---
Author Organization [facility] Care Team Providers Care Greens Picker Name Role Phone Pritesh Chu MD Primary Care Provider [phone] Markus Finley MD Unavailable [phone] Zander Cha MD Unavailable Encounter Details Date Type Department Care Team (Latest Contact Info) Description 10/02/2024 Travel Social History Tobacco Use Types Packs/Day Years Used Date Smoking Tobacco: Former Cigarettes 0.5 5.6 S tarted: 04/18/2016 Smokeless Tobacco: Never Alcohol Use Standard Drinks/Week Comments Not Currently 0 (1 standard drink = 0.6 oz pur e alcohol) quit 2023 [facility] Utilities Answer Date Recorded In the past 12 months has [employer], gas, oil, or water [employer] threatened to shut off services in your [...] week 09/25/2024 How often do you attend [facility] or buddhist services? Never 09/25/2024 Do you belong to [...] living in a fpc (including now)? No 09/25/2024 Sexually Active Control [...] Contact Info) Description 11/15/2024 1:00 PM INSPECT[facility] [employer]ACH[employer] [facility] [address] [place] [address] Markus Finley MD [address] [place] [address] 11/15/2024 2:00 PM INSPECTOR [employer]ACHIN[employer] [facility] [address] [place] [address] Markus Finley MD [address] [place] [address] Discharge Disposition: Discharged to home or Selfcare documented as of this encounter Visit Diagnoses Not on filedocumented in this encounter Care Teams Greens Picker Relationship Specialty Start Date End Date Pritesh Chu MD [address] [place], [place] [id number] PCP - General Family Medicine 04/18/24 Markus Finley MD [address] [place] [address] Consulting Physician Medical Oncology 04/18/24 Zander Cha MD [address] [place] [address] Consulting Physician Colon and Rectal Surgery 08/24/24 documented as of this encounter
--- OUTSIDE RECORDS SUMMARY | 2024-10-27 02:43 | XMS_ITS | Encounter Summary ---
Author Organization [facility] Address [address] [facility] [place] [address] Phone Care Team Providers Care Mat Sewer Name Role Phone Pritesh Chu MD Primary Care Provider [phone] Markus Finley MD Unavailable [phone] Zander Cha MD Unavailable Encounter Details Date Type Department Care Team (Late st Contact Info) Description 09/18/2024 1:30 PM PRECINCT I POLICE SERGEANT Clinical Support [facility] Oncology Services [address] [place] [phone] Markus Finley MD [address] [place] [address] Metastatic melanoma (HCC) Discharge Disposition: Discharged to home or Selfcare Social History Tobacco Use Types Packs/Day Years Used Date Smoking Tobacco: Former Cigarettes 0.5 5.6 S tarted: 04/18/2016 Smokeless Tobacco: Never Alcohol Use Standard Drinks/Week Comments Not Currently 0 (1 standard drink = 0.6 oz pur e alcohol) quit 2023 [facility] Utilities Answer Date Recorded In the past 12 months has th e electric, gas, oil, or water [employer] threatened to shut off services in your home? Patient declined 08/01/2024 Social Connection and Isolation Panel [NHANES] A nswer Date Recorded In a typical week, how many times do you talk on the phone with family, friends, or neighbors? Patient declined 08/01/2024 How often do you get togethe r with friends or relatives? Patient declined 08/01/2024 How often do you attend cheondoism or sabianism serv ices? Patient declined 08/01/2024 Do you [...] heating? Patient declined 08/01/2024 [facility] [...] Comments Blood Pressure 135/90 09/18/2024 2:53 PM PRECINCT I POLICE SERGEANT Pulse 76 09/18/2024 2:53 PM PRECINCT I POLICE SERGEANT Temperature 36.4 ??C (97.5 ??F) 09/18/2024 2:53 [...] with bandaid. Pt left in safe disposition. INCT I POLICE SERGEANT documented in this encounter Plan of Treatment Upcoming Encounters Date Type Department Care Team (Late st Contact Info) Description 11/15/2024 1:00 PM PRECINCT I POLICE SERGEANT Lab [facility] Laboratory Services [address] [place] [address] Markus Finley MD [address] [place] [address] 11/15/2024 2:00 PM PRECINCT I POLICE SERGEANT Appointment [facility] MRI 1 [facility] [place] [id number] Markus Finley MD [address] [place] [address] Discharge Disposition: Discharged to home or Selfcare documented as of this encounter Procedures Procedure Name Priority Date/Time Associated Diagnosis Comments CBC WITH AUTO DIFFERENTIAL STAT 09/18/2024 2:21 PM PRECINCT I POLICE SERGEANT Metastatic melanoma (HCC) THYROID STIMULATING HORMONE (TSH) STAT 09/18/2024 2:21 PM PRECINCT I POLICE SERGEANT Metastatic melanoma (HCC) CMP (COMPREHENSIVE METABOLIC PANEL) STAT 09/18/2024 2:21 PM PRECINCT I POLICE SERGEANT Metastatic melanoma (HCC) COMPLETE BLOOD COUNT (CBC) WITH DIFF STAT 09/18/2024 2:21 PM PRECINCT I POLICE SERGEANT Metastatic melanoma (HCC) documented in this encounter Results * (ABNORMAL) CBC WITH AUTO DIFFERENTIAL (09/18/2024 2:21 PM PRECINCT I POLICE SERGEANT) WBC 8.36 4.00 - 12.00 10(3)/mcL 09/18/2024 2:57 PM PRECINCT I POLICE SERGEANT [facility] RBC 3.90 3.80 - 5.30 10(6)/mcL 09/18/2024 2:57 PM PRECINCT I POLICE SERGEANT [facility] HEMOGLOBIN (HGB) 12.4 12.0 - 15.8 g/dL 09/18/2024 2:57 PM PRECINCT I POLICE SERGEANT [facility] HEMATOCRIT (HCT) 37.2 36.0 - 47.0 % 09/18/2024 2:57 PM PRECINCT I POLICE SERGEANT [facility] MCV 95.4 82.0 - 96.0 fL 09/18/2024 2:57 PM PRECINCT I POLICE SERGEANT [facility] MCH 31.8 26.0 - 34.0 pg 09/18/2024 2:57 PM [facility] MCHC 33.3 31.0 - 36.0 g/dL 09/18/2024 2:57 PM [facility] PLATELET COUNT 211 140 - 440 10(3)/[facility] 09/18/2024 2:57 PM [facility] RDW 15.3 11.8 - 15.5 % 09/18/2024 2:57 PM [facility] MPV 9.6(L) 9.7 - 12.4 fL 09/18/2024 2:57 PM [facility] NEUTROPHILS 91.0(H) 47.0 - 73.0 % 09/18/2024 2:57 PM [facility] LYMPHOCYTES 4.8(L) 18.0 - 42.0 % 09/18/2024 2:57 PM [facility] MONOCYTES 4.1 4.0 - 12.0 % 09/18/2024 2:57 PM [facility] EOSINOPHILS 0.0 0.0 - 5.0 % 09/18/2024 2:57 PM [facility] BASOPHILS 0.1 0.0 - 1.0 % 09/18/2024 2:57 PM [facility] ABSOLUTE NEUTROPHILS 7.61 1.60 - 7.70 10(3)/[facility] 09/18/2024 2:57 PM [facility] ABSOLUTE LYMPHOCYTES 0.40(L) 1.30 - 3.20 10(3)/[facility] 09/18/2024 2:57 PM [facility] ABSOLUTE MONOCYTES 0.34 0.20 - 1.00 10(3)/[facility] 09/18/2024 2:57 PM [facility] ABSOLUTE EOSINOPHIL 0.00 0.00 - 0.40 10(3)/[facility] 09/18/2024 2:57 PM [facility] ABSOLUTE BASOPHILS 0.01 0.00 - 0.10 10(3)/[facility] 09/18/2024 2:57 PM [facility] NRBC PER 100 WBC 0 09/18/20 2:57 PM PRECINCT I POLICE SERGEANT [facility] RESULTS ARE CONSISTENT WITH PERIPHERAL SMEAR REVIEW Yes 09/18/2024 2:57 PM PRECINCT I POLICE SERGEANT [facility] POLYCHROMASIA 1+ 09/18/2024 2:57 PM PRECINCT I POLICE SERGEANT [facility] Blood Sub-Q Port Venou s Access Device (Medi-Port, Implanted Port) / Unknown 09/18/2024 2:21 PM PRECINCT I POLICE SERGEANT 09/18/2024 2:21 PM PRECINCT I POLICE SERGEANT Markus Finley MD HEMATOLOGY ORDERABLES Fi nal Result Performing Organization Address City/[facility]/ZIP Co de Phone Number [facility] [address] [place] [address] * THYROID STIMULATING HORMONE (TSH) (09/18/2024 2:21 PM PRECINCT I POLICE SERGEANT) TSH 1.270 0.300 - 5.000 mIU/L 09/18/2024 3:31 PM PRECINCT I POLICE SERGEANT [facility] Blood Sub-Q Port Venou s Access Device (Medi-Port, Implanted Port) / Unknown 09/18/2024 2:21 PM PRECINCT I POLICE SERGEANT 09/18/2024 2:21 PM PRECINCT I POLICE SERGEANT Markus Finley MD CHEMISTRY ORDERABLES Fin al Result [facility] [address] [place] [address] * (ABNORMAL) CMP (COMPREHENSIVE METABOLIC PANEL) (09/18/2024 2:21 PM PRECINCT I POLICE SERGEANT) SODIUM 140 136 - 145 mmol/L 09/18/2024 2:50 PM PRECINCT I POLICE SERGEANT [facility] POTASSIUM 4.2 3.5 - 5.1 mmol/L 09/18/2024 2:50 PM PRECINCT I POLICE SERGEANT [facility] CHLORIDE 107 98 - 107 mmol/L 09/18/2024 2:50 PM [facility] CO2, VENOUS 25 22 - 30 mmol/L 09/18/2024 2:50 PM [facility] ANION GAP 12.2 <18.0 mmol/L 09/18/2024 2:50 PM [facility] GLUCOSE 114(H) 70 - 99 mg/dL 09/18/2024 2:50 PM [facility] BUN 24(H) 5 - 18 mg/dL 09/18/2024 2:50 PM [facility] CREATININE, BLOOD 0.78 0.60 - 1.00 mg/dL 09/18/2024 2:50 PM [facility] BUN/CREATININE RATIO 31(H) 12 - 20 ratio 09/18/2024 2:50 PM [facility] TOTAL PROTEIN 5.9(L) 6.3 - 8.2 g/dL 09/18/2024 2:50 PM [facility] ALBUMIN 3.8 3.5 - 5.0 g/dL 09/18/2024 2:50 PM [facility] A/G RATIO 1.8 1.0 - 2.2 09/18/2024 2:50 PM [facility] CALCIUM 9.0 8.7 - 10.5 mg/dL 09/18/2024 2:50 PM [facility] T BILI 0.4 0.2 - 1.2 mg/dL 09/18/2024 2:50 PM [facility] SGOT (AST) 11 5 - 34 U/L 09/18/2024 2:50 PM [facility] SGPT (ALT) 45 0 - 55 U/L 09/18/2024 2:50 PM [facility] ALKALINE PHOSPHATASE 45 40 - 150 U/L 09/18/2024 2:50 PM [facility] IS THE PATIENT REQUIRED TO BE FASTING? No 09/18/2024 2:50 PM [facility] GFR, ESTIMATED >60 >=60 09/18/2024 2:50 PM PRECINCT I POLICE SERGEANT [facility] Comment: Creatinine Clearance is the preferred criteria for selecting drug dose adjustments in renally impaired patients. ??The GFR is provided as additional pertinent clinical information. GFR is reported in mL/min/1.73 sq m. Calculation based on the Chronic Kidney Disease Epidemiology Collaboration (CKD- EPI) equation refit without adjustment for race. GFR, EST. >60 >=60 024 2:50 PM PRECINCT I POLICE SERGEANT [facility] GFR, EST. NONAFRICAN >60 >=60 09/18/2024 2:50 PM PRECINCT I POLICE SERGEANT [facility] Blood Sub-Q Port Venou s Access Device (Medi-Port, Implanted Port) / Unknown 09/18/2024 2:21 PM PRECINCT I POLICE SERGEANT 09/18/2024 2:21 PM PRECINCT I POLICE SERGEANT Markus Finley MD CHEMISTRY ORDERABLES Fin al Result [facility] [place] [address] documented in this encounter Visit Diagnoses Diagnosis Metastatic melanoma (HCC) Melanoma of skin, site unspecified documented in this encounter Administered Medications Inactive Administered Medications - up to 3 most recent administrations Medication Order MAR Action Action Date Dose Rate Site 0.9 % sodium chloride solution at 999 mL/hr, Intravenous, ONCE, 1 dose, On Tue09/18/24 at 1400Indications:Metastatic melanoma (HCC) New Bag 09/18/2024 2:00 PM PRECINCT I POLICE SERGEANT 1,000 mL 999 mL/hr Heparin Na (Pork) Lock Flsh PF SOLN 50 Units 50 Units, Intravenous, ONCE, 1 dose, On Tue09/18/24 at 1400Indications:Metastatic melanoma (HCC) Given 09/18/2024 3:11 PM PRECINCT I POLICE SERGEANT 50 Units documented in this encounter Care Teams Mat Sewer Relationship Specialty Start Date End Date Pritesh Chu MD [address] [address] PCP - General Family Medicine 04/18/24 Markus Finley MD [address] [place] [address] Consulting Physician Medical Oncology 04/18/24 Zander Cha MD [address] [address] Consulting Physician Colon and Rectal Surgery 08/24/24 documented as of this encounter
--- OUTSIDE RECORDS SUMMARY | 2024-10-27 02:43 | XMS_ITS | Encounter Summary ---
Author Organization [facility] Address [address] [facility] [address] Phone Care Team Providers Care Energy Risk Management Analyst Name Role Phone Pritesh Chu MD Primary Care Provider [phone] Markus Finley MD Unavailable [phone] Zander Cha MD Unavailable Encounter Details Date Type Department Care Team (Late st Contact Info) Description 10/05/2024 Transcribe Orders [facility] [address] [place], [place] [id number] Markus Finley MD [address] [place] [address] Metastatic melanoma (HCC) (Primary Dx) Social History Tobacco Use Types Packs/Day Years Used Date Smoking Tobacco: Former Cigarettes 0.5 5.6 S tarted: 04/18/2016 Smokeless Tobacco: Never Alcohol Use Standard Drinks/Week Comments Not Currently 0 (1 standard drink = 0.6 oz pur e alcohol) quit 2023 [facility] Utilities Answer Date Recorded In the past 12 months has [employer], gas, oil, or water [employer] threatened to shut off services in your [...] medical care, and heating? Somewhat hard 09/25/2024 [facility] - [...] living in a mcc (including now)? No 09/25/2024 Sexually Active Control [...] st Contact Info) Description 11/15/2024 1:00 PM PICK UP TRUCK DRIVER [facility] [address] [place] [address] Markus Finley MD [address] [place] [address] 11/15/2024 2:00 PM PICK UP TRUCK DRIVER [facility] [place] [address] Markus Finley MD [address] [place] [address] Discharge Disposition: Discharged to home or Selfcare Scheduled Orders Name Type Priority Associated Diagnoses Orde r Schedule UR TEST QUAL Lab Routine Metastatic melanoma (HCC) Expected: 10/05/2024, Expires: 10/05/2025 documented as of this encounter Visit Diagnoses Diagnosis Metastatic melanoma (HCC)- Primary Melanoma of skin, site unspecified documented in this encounter Care Teams Energy Risk Management Analyst Relationship Specialty Start Date End Date Pritesh Chu MD [address] [address] PCP - General Family Medicine 04/18/24 Markus Finley MD [address] [place] [address] Consulting Physician Medical Oncology 04/18/24 Zander Cha MD [address] [address] Consulting Physician Colon and Rectal Surgery 08/24/24 documented as of this encounter
--- OUTSIDE RECORDS SUMMARY | 2024-10-27 02:43 | XMS_ITS | Encounter Summary ---
Author Organization [facility] Address [address] [facility] [place] [address] Phone Care Team Providers Care Riding Double Name Role Phone Pritesh Chu MD Primary Care Provider [phone] Markus Finley MD Unavailable [phone] Zander Cha MD Unavailable Encounter Details Date Type Department Care Team (Late st Contact Info) Description 09/11/2024 1:40 PM SHAREPOINT ANALYST [facility] [address] [place] [phone] Markus Finley MD [address] [place] [address] Discharge Disposition: Discharged to home or Selfcare Social History Tobacco Use Types Packs/Day Years Used Date Smoking Tobacco: Former Cigarettes 0.5 5.6 S tarted: 04/18/2016 Smokeless Tobacco: Never Tobacco Cessation:Counseling Given: Not Answered Alcohol Use Standard Drinks/Week Comments Not Currently 0 (1 standard drink = 0.6 oz pur e alcohol) quit 2023 [facility] Utilities Answer Date Recorded In the past 12 months has th e electric, gas, oil, or water [employer] threatened to shut off services in your home? Patient declined 08/01/2024 Social Connection and Isolation Panel [NHANES] A nswer Date Recorded In a typical week, how many times do you talk on the phone with family, friends, or neighbors? Patient declined 08/01/2024 How often do you get togethe r with friends or relatives? Patient declined 08/01/2024 How often do you attend scientologist or jainism serv ices? Patient declined 08/01/2024 [...] 08/01/2024 [facility] [place] [facility] - Occupational Stress Questionnaire Answer Date [...] any time in the past 12 m [facility], were you homeless or living [...] Comments Blood Pressure 131/90 09/11/2024 2:01 PM SHAREPOINT ANALYST Pulse 83 09/11/2024 2:01 PM SHAREPOINT ANALYST Temperature 36.6 ??C (97.8 ??F) 09/11/2024 2:01 PM CS T Respiratory Rate 18 09/11/2024 2:01 PM SHAREPOINT ANALYST Oxygen Saturation 98% 09/11/2024 2:01 PM SHAREPOINT ANALYST Inhaled Oxygen Concentration - - Weight 114.2 kg (251 lb 12.8 oz) 09/11/2024 2:01 PM SHAREPOINT ANALYST Height 167.6 cm (5' 6 ) 09/11/2024 2:01 PM SHAREPOINT ANALYST Body Mass Index 40.64 09/11/2024 2:01 PM SHAREPOINT ANALYST documented in this encounter Progress Notes [...] received on 07/17/24. Patient was admitted to [facility] from 07/25/24through 07/30/24 and 08/02/24 through [...] on 08/10/24. 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 --[id number] BLOOD: positive for BRAF V600E and TSC2 [...] 4.[address] abdomen pelvis done at [facility] on 06/27/2024 No evidence of [...] for Markus Moses MD. 09/11/2024, 2:12 PM SHAREPOINT ANALYST EPOINT ANALYST documented in this encounter Miscellaneous Notes * Interdisciplinary - Sandra Mcclelland - 09/11/2024 1:40 PM CST Patient reports no complaints. Pain score is 0. EPOINT ANALYST * Interdisciplinary - Sandra Mcclelland - 09/11/2024 1:40 PM CST AVS declined. Patient will follow up in 3 weeks. EPOINT ANALYST documented in this encounter Plan of Treatment Upcoming Encounters Date Type Department Care Team (Late st Contact Info) Description 11/15/2024 1:00 PM SHAREPOINT ANALYST Lab [facility] Laboratory Services 1 [place] [address] Markus Finley MD [address] [place] [address] 11/15/2024 2:00 PM SHAREPOINT ANALYST Appointment [facility] MRI [address] [place] [address] Markus Finley MD [address] [place] [address] Discharge Disposition: Discharged to home or Selfcare documented as of this encounter Visit Diagnoses Not on filedocumented in this encounter Care Teams Riding Double Relationship Specialty Start Date End Date Pritesh Chu MD [address] [place] [address] PCP - General Family Medicine 04/18/24 Markus Finley MD [address] [place] [address] Consulting Physician Medical Oncology 04/18/24 Zander Cha MD [address] [address] Consulting Physician Colon and Rectal Surgery 08/24/24 documented as of this encounter
--- OUTSIDE RECORDS SUMMARY | 2024-10-27 02:43 | XMS_ITS | Encounter Summary ---
Author Organization [facility] Care Team Providers Care Bar Porter Name Role Phone Pritesh Chu MD Primary Care Provider Markus Finley MD Unavailable [phone] Zander Cha MD Unavailable Encounter Details Date Type Department Care Team (Latest Contact Info) Description 09/18/2024 Travel Social History Tobacco Use Types Packs/Day Years Used Date Smoking Tobacco: Former Cigarettes 0.5 5.6 S tarted: 04/18/2016 Smokeless Tobacco: Never Alcohol Use Standard Drinks/Week Comments Not Currently 0 (1 standard drink = 0.6 oz pur e alcohol) quit 2023 [facility] Utilities Answer Date Recorded In the past 12 months has [employer], gas, oil, or water [employer] threatened to shut off services in your home? Patient declined 08/01/2024 Social Connection and Isolation Panel [NHANES] A nswer Date Recorded In a typical week, how many times do you talk on the phone with family, friends, or neighbors? Patient declined 08/01/2024 How often do you get togethe r with friends or relatives? Patient declined 08/01/2024 How often do you attend anabaptist or gnosticism serv ices? Patient declined 08/01/2024 Do you [...] medical care, and heating? Patient declined 08/01/2024 [facility] - Occupational Stress Questionnaire Answer Date [...] time in the past 12 m [facility], were you homeless [...] st Contact Info) Description 11/15/2024 1:00 PM FORM SETTER STEEL PAN FORMS [facility] 1 [place] [address] Markus Finley MD [address] [place] [address] 11/15/2024 2:00 PM FORM SETTER STEEL PAN FORMS [facility]ment [facility] 1 [place] [address] Markus Finley MD [address] [place] [address] Discharge Disposition: Discharged to home or Selfcare documented as of this encounter Visit Diagnoses Not on filedocumented in this encounter Care Teams Bar Porter Relationship Specialty Start Date End Date Pritesh Chu MD [address] [place], [place] [id number] PCP - General Family Medicine 04/18/24 Markus Finley MD [address] [place] [address] Consulting Physician Medical Oncology 04/18/24 Zander Cha MD [address] [place] [address] Consulting Physician Colon and Rectal Surgery 08/24/24 documented as of this encounter
--- OUTSIDE RECORDS SUMMARY | 2024-10-27 02:43 | XMS_ITS | Encounter Summary ---
Author Organization [facility] Address [address] [place] [address] Phone Care Team Providers Care Weatherization Crew Leader Name Role Phone Pritesh Chu MD Primary Care Provider [phone] Markus Finley MD Unavailable [phone] Zander Cha MD Unavailable Reason for Referral * Consult, Test & Initiate Treatment (Routine) - Closed Specialty Diagnoses / Procedures Referred By Contross t Referred To Contact Diagnoses Nasal discomfort Markus Finley MD [address] [place] [address] Phone: tel: fax: [facility] [address] [place] [address] [address] Phone: tel: fax: Referral ID Status Reason Start Date Expiration Date Visits Re quested Visits Authorized [id number] Closed 09/25/2024 1 1 Scheduling Instructions Dayanara [...] gap Subcutaneous nodule of left lower extremity R BASTER Reason for Visit * Episode Based Medications (Routine) - Closed Specialty Diagnoses / Procedures Referred By Contac t Referred To Contact Diagnoses Metastatic melanoma (HCC) Markus Finley MD [address] [place] [address] Phone: tel: fax: [facility] [address] [place] [address] Phone: tel: fax: Referral ID Status Reason Start Date Expiration Date Visits Re quested Visits Authorized [id number] Closed 04/19/2024 1 30 Encounter Details Date Type Department Care Team (Late st Contact Info) Description 09/25/2024 1:30 PM UNDER BASTER Clinical Support [facility] [address] [place] [address] Markus Finley MD [address] [place] [address] Dehydration (Primary Dx); Metastatic melanoma (HCC); Nasal discomfort Discharge Disposition: Discharged to home or Selfcare Social History Tobacco Use Types Packs/Day Years Used Date Smoking Tobacco: Former Cigarettes 0.5 5.6 S tarted: 04/18/2016 Smokeless Tobacco: Never Alcohol Use Standard Drinks/Week Comments Not Currently 0 (1 standard drink = 0.6 oz pur e alcohol) quit 2023 [facility] Utilities Answer Date Recorded In the past 12 months has [employer], gas, oil, or water [employer] threatened to shut off services in your [...] often do you attend chur ch or evangelical services? Never 09/25/2024 Do you belong to [...] medical care, and heating? Somewhat hard 09/25/2024 [facility] [place] of Occupat ional Health - Occupational Stress [...] Comments Blood Pressure 127/87 09/25/2024 2:15 PM UNDER BASTER Pulse 78 09/25/2024 2:15 PM UNDER BASTER Temperature 36.4 ??C (97.5 ??F) 09/25/2024 2:15 PM CS T Respiratory Rate 16 09/25/2024 2:15 PM UNDER BASTER Oxygen Saturation 98% 09/25/2024 2:15 PM UNDER BASTER Inhaled Oxygen Concentration - - Weight - [...] Mary Almaguer RN - 09/25/2024 1:30 PM UNDER BASTER Patient arrived port accessed per protocol x1 [...] Patient left treatment area in stable condition. R BASTER * Addendum Note - Sister Mary Cortés RN - 09/25/2024 1:30 PM CSTAddended by: SISTER Mary CORTÉS on: 09/25/2024 04:14 PM Modules accepted: Orders R BASTER documented in this encounter Plan of Treatment Upcoming Encounters Date Type Department Care Team (Late st Contact Info) Description 11/15/2024 1:00 PM UNDER BASTER Lab [facility] Services [address] [place] [address] Markus Finley MD [address] [place] [address] 11/15/2024 2:00 PM UNDER BASTER Appointment [facility] MRI [address] [place] [address] Markus Finley MD [address] [place] [address] Discharge Disposition: Discharged to home or Selfcare Scheduled Referrals Name Type Priority Associated Diagnoses Orde r Schedule EXTERNAL ENT REFERRAL Outpatient Referral Routine Nasal discomfort Expected: 09/25/2024, Expires: 09/25/2025 documented as of this encounter Procedures Procedure Name Priority Date/Time Associated Diagnosis Comments CBC WITH AUTO DIFFERENTIAL STAT 09/25/2024 2:03 PM UNDER BASTER Metastatic melanoma (HCC) THYROID STIMULATING HORMONE (TSH) STAT 09/25/2024 2:03 PM UNDER BASTER Metastatic melanoma (HCC) CMP (COMPREHENSIVE METABOLIC PANEL) STAT 09/25/2024 2:03 PM UNDER BASTER Metastatic melanoma (HCC) COMPLETE BLOOD COUNT (CBC) WITH DIFF STAT 09/25/2024 2:03 PM UNDER BASTER Metastatic melanoma (HCC) documented in this encounter Results * (ABNORMAL) CBC WITH AUTO DIFFERENTIAL (09/25/2024 2:03 PM UNDER BASTER) WBC 8.23 4.00 - 12.00 10(3)/mcL 09/25/2024 2:12 PM UNDER BASTER [facility] RBC 3.98 3.80 - 5.30 10(6)/mcL 09/25/2024 2:12 PM UNDER BASTER [facility] HEMOGLOBIN (HGB) 12.8 12.0 - 15.8 g/dL 09/25/2024 2:12 PM UNDER BASTER [facility] HEMATOCRIT (HCT) 38.6 36.0 - 47.0 % 09/25/2024 2:12 PM UNDER BASTER [facility] MCV 97.0(H) 82.0 - 96.0 fL 09/25/2024 2:12 PM UNDER BASTER [facility] MCH 32.2 26.0 - 34.0 pg 09/25/2024 2:12 PM UNDER BASTER [facility] MCHC 33.2 31.0 - 36.0 g/dL 09/25/2024 2:12 PM UNDER BASTER [facility] PLATELET COUNT 183 140 - 440 10(3)/mcL 09/25/2024 2:12 PM UNDER BASTER [facility] RDW 14.8 11.8 - 15.5 % 09/25/2024 2:12 PM UNDER BASTER [facility] MPV 10.1 9.7 - 12.4 fL 09/25/2024 2:12 PM UNDER BASTER [facility] NEUTROPHILS 85.2(H) 47.0 - 73.0 % 09/25/2024 2:12 PM UNDER BASTER [facility] LYMPHOCYTES 6.8(L) 18.0 - 42.0 % 09/25/2024 2:12 PM UNDER BASTER [facility] MONOCYTES 7.8 4.0 - 12.0 % 09/25/2024 2:12 PM [facility] EOSINOPHILS 0.1 0.0 - 5.0 % 09/25/2024 2:12 PM [facility] BASOPHILS 0.1 0.0 - 1.0 % 09/25/2024 2:12 PM [facility] ABSOLUTE NEUTROPHILS 7.01 1.60 - 7.70 10(3)/[facility] 09/25/2024 2:12 PM [facility] ABSOLUTE LYMPHOCYTES 0.56(L) 1.30 - 3.20 10(3)/[facility] 09/25/2024 2:12 PM [facility] ABSOLUTE MONOCYTES 0.64 0.20 - 1.00 10(3)/[facility] 09/25/2024 2:12 PM [facility] ABSOLUTE EOSINOPHIL 0.01 0.00 - 0.40 10(3)/[facility] 09/25/2024 2:12 PM [facility] ABSOLUTE BASOPHILS 0.01 0.00 - 0.10 10(3)/[facility] 09/25/2024 2:12 PM [facility] NRBC PER 100 WBC 0 09/25/20 2:12 PM [facility] Blood Sub-Q Port Venou s Access Device (Medi-Port, Implanted Port) / Unknown 09/25/2024 2:03 PM UNDER BASTER 09/25/2024 2:03 PM UNDER BASTER Markus Finley MD HEMATOLOGY ORDERABLES Fi nal Result [facility] [address] [place] [address] * THYROID STIMULATING HORMONE (TSH) (09/25/2024 2:03 PM UNDER BASTER) TSH 2.382 0.300 - 5.000 mIU/L 09/25/2024 2:49 PM UNDER BASTER [facility] Blood Sub-Q Port Venou s Access Device (Medi-Port, Implanted Port) / Unknown 09/25/2024 2:03 PM UNDER BASTER 09/25/2024 2:03 PM UNDER BASTER Markus Finley MD CHEMISTRY ORDERABLES Fin al Result Performing Organization Address City/[facility]/ZIP Co de Phone Number [facility] [address] [place] [address] * (ABNORMAL) CMP (COMPREHENSIVE METABOLIC PANEL) (09/25/2024 2:03 PM UNDER BASTER) SODIUM 141 136 - 145 mmol/L 09/25/2024 2:32 PM UNDER BASTER [facility] POTASSIUM 4.2 3.5 - 5.1 mmol/L 09/25/2024 2:32 PM UNDER BASTER [facility] CHLORIDE 109(H) 98 - 107 mmol/L 09/25/2024 2:32 PM UNDER BASTER [facility] CO2, VENOUS 25 22 - 30 mmol/L 09/25/2024 2:32 PM UNDER BASTER [facility] ANION GAP 11.2 <18.0 mmol/L 09/25/2024 2:32 PM UNDER BASTER [facility] GLUCOSE 95 70 - 99 mg/dL 09/25/2024 2:32 PM UNDER BASTER [facility] BUN 22(H) 5 - 18 mg/dL 09/25/2024 2:32 PM UNDER BASTER [facility] CREATININE, BLOOD 0.86 0.60 - 1.00 mg/dL 09/25/2024 2:32 PM [facility] BUN/CREATININE RATIO 26(H) 12 - 20 ratio 09/25/2024 2:32 PM [facility] TOTAL PROTEIN 6.3 6.3 - 8.2 g/dL 09/25/2024 2:32 PM [facility] ALBUMIN 4.0 3.5 - 5.0 g/dL 09/25/2024 2:32 PM [facility] A/G RATIO 1.7 1.0 - 2.2 09/25/2024 2:32 PM [facility] CALCIUM 9.0 8.7 - 10.5 mg/dL 09/25/2024 2:32 PM [facility] T BILI 0.5 0.2 - 1.2 mg/dL 09/25/2024 2:32 PM [facility] SGOT (AST) 20 5 - 34 U/L 09/25/2024 2:32 PM [facility] SGPT (ALT) 45 0 - 55 U/L 09/25/2024 2:32 PM [facility] ALKALINE PHOSPHATASE 39(L) 40 - 150 U/L 09/25/2024 2:32 PM [facility] IS THE PATIENT REQUIRED TO BE FASTING? No 09/25/2024 2:32 PM [facility] GFR, ESTIMATED >60 >=60 09/25/2024 2:32 PM [facility] Comment: Creatinine Clearance is the preferred criteria for selecting drug dose adjustments in renally impaired patients. ??The GFR is provided as additional pertinent clinical information. GFR is reported in mL/min/1.73 sq m. Calculation based on the Chronic Kidney Disease Epidemiology Collaboration (CKD- EPI) equation refit without adjustment for race. GFR, EST. >60 >=60 024 2:32 PM [facility] GFR, EST. NONAFRICAN >60 >=60 09/25/2024 2:32 PM [facility] Blood Sub-Q Port Venou s Access Device (Medi-Port, Implanted Port) / Unknown 09/25/2024 2:03 PM UNDER BASTER 09/25/2024 2:03 PM UNDER BASTER Markus Finley MD CHEMISTRY ORDERABLES Fin al Result [facility] [place] [address] documented in this encounter Visit Diagnoses Diagnosis [...] at 1330Indications:Dehydration New Bag 09/25/2024 1:50 PM UNDER BASTER 1,000 mL 999 mL/hr Heparin Na (Pork) Lock Flsh PF SOLN 50 Units 50 Units, Intravenous, PRN, Starting on Tue09/25/24 at 1447, Until Tue09/25/24 at 1723, Line CareIndications:Dehydration Given 09/25/2024 3:09 PM UNDER BASTER 50 Units documented in this encounter Care Teams Weatherization Crew Leader Relationship Specialty Start Date End Date Pritesh Chu MD [address] [address] PCP - General Family Medicine 04/18/24 Markus Finley MD [address] [place] [address] Consulting Physician Medical Oncology 04/18/24 Zander Cha MD [address] [address] Consulting Physician Colon and Rectal Surgery 08/24/24 documented as of this encounter
--- OUTSIDE RECORDS SUMMARY | 2024-10-27 02:43 | XMS_ITS | Encounter Summary ---
Author Organization [employer] Care Team Providers Care Baggage Porter Name Role Phone Pritesh Chu MD Primary Care Provider [phone] Markus Finley MD Unavailable [phone] Zander Cha MD Unavailable Encounter Details Date Type Department Care Team (Latest Contact Info) Description 09/11/2024 Travel Social History Tobacco Use Types Packs/Day Years Used Date Smoking Tobacco: Former Cigarettes 0.5 5.6 S tarted: 04/18/2016 Smokeless Tobacco: Never Alcohol Use Standard Drinks/Week Comments Not Currently 0 (1 standard drink = 0.6 oz pur e alcohol) quit 2023 [facility] Utilities Answer Date Recorded In the past 12 months has [employer], gas, oil, or water [employer] threatened to shut off services in your home? Patient declined 08/01/2024 Social Connection and Isolation Panel [NHANES] A nswer Date Recorded In a typical week, how many times do you talk on the phone with family, friends, or neighbors? Patient declined 08/01/2024 How often do you get togethe r with friends or relatives? Patient declined 08/01/2024 How often do you attend pentecostalism or tenriism serv ices? Patient declined 08/01/2024 [...] medical care, and heating? Patient declined 08/01/2024 [employer] [facility] - Occupational Stress Questionnaire Answer Date [...] any time in the past 12 m [facility], were you homeless or living in a long-term (including now)? Patient declined 08/01/2024 Sexually Active [...] st Contact Info) Description 11/15/2024 1:00 PM FUND ACCOUNTANT Lab [facility] 1 [place] [address] Markus Finley MD [address] [place] [address] 11/15/2024 2:00 PM FUND ACCOUNTANT [facility]ointment [facility] 1 [place] [address] Markus Finley MD [address] [place] [address] Discharge Disposition: Discharged to home or Selfcare documented as of this encounter Visit Diagnoses Not on filedocumented in this encounter Care Teams Baggage Porter Relationship Specialty Start Date End Date Pritesh Chu MD [address] [place], [place] [id number] PCP - General Family Medicine 04/18/24 Markus Finley MD [address] [place] [address] Consulting Physician Medical Oncology 04/18/24 Zander Cha MD [address] [place] [address] Consulting Physician Colon and Rectal Surgery 08/24/24 documented as of this encounter
--- OUTSIDE RECORDS SUMMARY | 2024-10-27 02:43 | XMS_ITS | Encounter Summary ---
Author Organization [facility] Address [address] [place] [address] Phone Care Team Providers Care Perishable Fruit Inspector Name Role Phone Pritesh Chu MD Primary Care Provider [phone] Markus Finley MD Unavailable [phone] Zander Cha MD Unavailable Reason for Visit * Reason Onset Date Comments Social Concerns 09/25/2024 Encounter Details Date Type Department Care Team (Late st Contact Info) Description 09/25/2024 Patient Outreach [facility] [address] [place] [address] Navigator, [place] Social Concerns Social History Tobacco Use Types Packs/Day Years Used Date Smoking Tobacco: Former Cigarettes 0.5 5.6 S tarted: 04/18/2016 Smokeless Tobacco: Never Alcohol Use Standard Drinks/Week Comments Not Currently 0 (1 standard drink = 0.6 oz pur e alcohol) quit 2023 [facility] Utilities Answer Date Recorded In the [...] attend chur ch or church services? Never 09/25/2024 Do you belong to any clubs o r organizations such as sikh groups, unions, fraternal or athletic groups, or [...] medical care, and heating? Somewhat hard 09/25/2024 [facility] of Occupat ional [...] alcohol? Monthly or less 09/25/2024 11:46 AM MICROBIOLOGY LAB ANALYST Afshin Hopson Q2: How many drinks containing alcohol do you have on a typical day when you are drinking? 1 or 2 09/25/2024 11:46 AM MICROBIOLOGY LAB ANALYST Hayde Hopson Q3: How often do you have si x or more drinks on one occasion? Never 09/25/2024 11:46 AM MICROBIOLOGY LAB ANALYST Hayde Hopson documented as of this encounter [...] 0 min Stress: Stress Concern Present (09/25/2024) [place] of Occupational Health - Occupational Stress Questionnaire Feeling of Stress : Very much Social Integration: Socially Isolated (09/25/2024) Social Connection and Isolation Panel [NHANES] Frequency of Communication with Friends and Family: More than three times a week Frequency of Social Gatherings with Friends and Family: More than three times a week Attends Faith Services: Never Active Member of Clubs or Organizations: No Attends Club or Organization Meetings: Never Marital Status: Never Depression: Not on file No further follow up needed at this time. OBIOLOGY LAB ANALYST documented in this encounter Plan of Treatment Upcoming Encounters Date Type Department Care Team (Late st Contact Info) Description 11/15/2024 1:00 PM MICROBIOLOGY LAB ANALYST Lab [facility] Services [address] [place] [address] Markus Finley MD [address] [place] [address] 11/15/2024 2:00 PM MICROBIOLOGY LAB ANALYST Appointment [facility] MRI [address] [place] [address] Markus Finley MD [address] [place] [address] Discharge Disposition: Discharged to home or Selfcare documented as of this encounter Interventions Community Resource Recommendations Community Resource Services Recommended Domains Addressed Status Status Reason/Outcome Date/Time HIS Service Station Food Insecurity Needs Food Insecurity Recommended 09/25/2024 11:54 AM MICROBIOLOGY LAB ANALYST [place] [facility] Food Insecurity Needs Food Insecurity Recommended 09/25/2024 11:54 AM MICROBIOLOGY LAB ANALYST [facility] Financial Resource Needs, Food Insecurity Needs Financial Resource Strain, Food Insecurity Recommended 09/25/2024 11:54 AM MICROBIOLOGY LAB ANALYST [facility] - Mental Health Services Mental Health Evaluation Stress Recommended 09/25/2024 11:54 AM MICROBIOLOGY LAB ANALYST [facility] Division of Mental Health - Inpatient Services Mental Health Evaluation, Mental Health Services Stress Recommended 09/25/2024 11:54 AM MICROBIOLOGY LAB ANALYST [facility] Care Services - Psychiatric Care Medications for Mental Health, Mental Health Education, Mental Health Evaluation, Mental Health Services Stress Recommended 09/25/2024 11:54 AM MICROBIOLOGY LAB ANALYST documented as of this encounter Visit Diagnoses Not on filedocumented in this encounter Care Teams Perishable Fruit Inspector Relationship Specialty Start Date End Date Pritesh Chu MD [address] [place] [address] PCP - General Family Medicine 04/18/24 Markus Finley MD [address] [place] [address] Consulting Physician Medical Oncology 04/18/24 Zander Cha MD [address] [address] Consulting Physician Colon and Rectal Surgery 08/24/24 documented as of this encounter
--- OUTSIDE RECORDS SUMMARY | 2024-10-27 02:43 | XMS_ITS | Encounter Summary ---
Author Organization [facility] Address [address] [employer] [facility] [place] [address] Phone Care Team Providers Care Divorce Attorney Name Role Phone Pritesh Chu MD Primary Care Provider [phone] Markus Finley MD Unavailable [phone] Zander Cha MD Unavailable Reason for Visit * Episode Based Medications (Routine) - Closed Specialty Diagnoses / Procedures Referred By Contross t Referred To Contact Diagnoses Metastatic melanoma (HCC) Markus Finley MD [address] [place] [address] Phone: tel: fax: [facility] Oncology Services [address] [place] [address] Phone: tel: fax: Referral ID Status Reason Start Date Expiration Date Visits Re quested Visits Authorized [id number] Closed 04/19/2024 1 30 Encounter Details Date Type Department Care Team (Late st Contact Info) Description 09/07/2024 11:30 AM CDT Clinical Support [facility] Oncology Services [address] [place] [phone] Markus Finley MD [address] [place] [address] Metastatic melanoma (HCC) (Primary Dx) Discharge Disposition: [...] How often do you attend bahai or mandaen serv ices? Patient declined 08/01/2024 [...] medical care, and heating? Patient declined 08/01/2024 [place] [facility] - Occupational Stress [...] senior living (including now)? Patient declined 08/01/2024 Sexually Active [...] st Contact Info) Description 11/15/2024 1:00 PM CLASSROOM ASSISTANT Lab [facility] Laboratory Services 1 [place] [address] Markus Finley MD [address] [place] [address] 11/15/2024 2:00 PM CLASSROOM ASSISTANT Appointment [facility] MRI 1 [facility] [place] [phone] Markus Finley MD [address] [place] [address] Discharge Disposition: Discharged to home or Selfcare [...] 12.00 10(3)/mcL 09/07/2024 12:[address] [facility] RBC 4.18 3.80 - 5.30 10(6)/mcL 09/07/2024 12:[address] [facility] HEMOGLOBIN (HGB) 12.7 12.0 - 15.8 g/dL 09/07/2024 12:[address] HEMATOCRIT (HCT) 39.1 36.0 - 47.0 % 09/07/2024 12:[address] MCV 93.5 82.0 - 96.0 fL 09/07/2024 12:23 PM [facility]T [facility] MCH 30.4 26.0 - 34.0 pg 09/07/2024 12:23 PM CDT [facility] MCHC 32.5 31.0 - 36.0 g/dL 09/07/2024 12:23 PM CDT [facility] PLATELET COUNT 178 140 - 440 10(3)/[facility] 09/07/2024 12:23 PM CDT [facility] RDW 14.8 11.8 - 15.5 % 09/07/2024 12:23 PM CDT [facility] MPV 9.8 9.7 - 12.4 fL 09/07/2024 12:23 PM CDT [facility] NEUTROPHILS 90.3(H) 47.0 - 73.0 % 09/07/2024 12:23 PM CDT [facility] LYMPHOCYTES 4.7(L) 18.0 - 42.0 % 09/07/2024 12:23 PM CDT [facility] MONOCYTES 4.8 4.0 - 12.0 % 09/07/2024 12:23 PM CDT [facility] EOSINOPHILS 0.1 0.0 - 5.0 % 09/07/2024 12:23 PM CDT [facility] BASOPHILS 0.1 0.0 - 1.0 % 09/07/2024 12:23 PM CDT [facility] ABSOLUTE NEUTROPHILS 8.08(H) 1.60 - 7.70 10(3)/[facility] 09/07/2024 12:23 PM CDT [facility] ABSOLUTE LYMPHOCYTES 0.42(L) 1.30 - 3.20 10(3)/[facility] 09/07/2024 12:23 PM CDT [facility] ABSOLUTE MONOCYTES 0.43 0.20 - 1.00 10(3)/[facility] 09/07/2024 12:23 PM CDT [facility] ABSOLUTE EOSINOPHIL 0.01 0.00 - 0.40 10(3)/[facility] 09/07/2024 12:23 PM CDT [facility] ABSOLUTE BASOPHILS 0.01 0.00 - 0.10 10(3)/[facility] 09/07/2024 12:23 PM CDT [facility] NRBC PER 100 WBC 0 09/07/20 12:23 PM CDT [facility] RESULTS ARE CONSISTENT WITH PERIPHERAL SMEAR REVIEW Yes 09/07/2024 12:23 PM CDT [facility] RBC MORPHOLOGY CONSISTENT WITH INDICES Yes 09/07/2024 12:23 PM CDT [facility] Blood Sub-Q Port Venou s Access Device (Medi-Port, Implanted Port) / Unknown 09/07/2024 11:55 AM CDT 09/07/2024 11:55 AM CDT Markus Finley MD HEMATOLOGY ORDERABLES Fi nal Result Performing Organization Address City/[facility]/ZIP Co de Phone Number [facility] [address] [place] [address] * THYROID STIMULATING HORMONE (TSH) (09/07/2024 11:55 AM CDT) TSH 1.777 0.300 - 5.000 mIU/L 09/07/2024 12:42 PM CDT [facility] Blood Sub-Q Port Venou s Access Device (Medi-Port, Implanted Port) / Unknown 09/07/2024 11:55 AM CDT 09/07/2024 11:55 AM CDT Markus Finley MD CHEMISTRY ORDERABLES Fin al Result Performing Organization Address City/[facility]/ZIP Co de Phone Number [facility] [address] [place] [address] * (ABNORMAL) CMP (COMPREHENSIVE METABOLIC PANEL) (09/07/2024 11:55 AM CDT) SODIUM 139 136 - 145 mmol/L 09/07/2024 12:24 PM CDT [facility] POTASSIUM 4.7 3.5 - 5.1 mmol/L 09/07/2024 12:24 PM CDT [facility] CHLORIDE 105 98 - 107 mmol/L 09/07/2024 12:24 PM CDT [facility] CO2, VENOUS 26 22 - 30 mmol/L 09/07/2024 12:24 PM CDT [facility] ANION GAP 12.7 <18.0 mmol/L 09/07/2024 12:24 PM CDT [facility] GLUCOSE 102(H) 70 - 99 mg/dL 09/07/2024 12:24 PM CDT [facility] BUN 20(H) 5 - 18 mg/dL 09/07/2024 12:24 PM CDT [facility] CREATININE, BLOOD 0.82 0.60 - 1.00 mg/dL 09/07/2024 12:24 PM CDT [facility] BUN/CREATININE RATIO 24(H) 12 - 20 ratio 09/07/2024 12:24 PM CDT [facility] TOTAL PROTEIN 6.1(L) 6.3 - 8.2 g/dL 09/07/2024 12:24 PM CDT [facility] ALBUMIN 3.9 3.5 - 5.0 g/dL 09/07/2024 12:24 PM CDT [facility] A/G RATIO 1.8 1.0 - 2.2 09/07/2024 12:24 PM CDT [facility] CALCIUM 9.2 8.7 - 10.5 mg/dL 09/07/2024 12:24 PM CDT [facility] T BILI 0.6 0.2 - 1.2 mg/dL 09/07/2024 12:24 PM CDT [facility] SGOT (AST) 12 5 - 34 U/L 09/07/2024 12:24 PM CDT [facility] SGPT (ALT) 53 0 - 55 U/L 09/07/2024 12:24 PM CDT [facility] ALKALINE PHOSPHATASE 52 40 - 150 U/L 09/07/2024 12:24 PM CDT [facility] IS THE PATIENT REQUIRED TO BE FASTING? No 09/07/2024 12:24 PM CDT [facility] GFR, ESTIMATED >60 >=60 09/07/2024 12:24 PM CDT [facility] Comment: Creatinine Clearance is the preferred criteria for selecting drug dose adjustments in renally impaired patients. ??The GFR is provided as additional pertinent clinical information. GFR is reported in mL/min/1.73 sq m. Calculation based on the Chronic Kidney Disease Epidemiology Collaboration (CKD- EPI) equation refit without adjustment for race. GFR, EST. >60 >=60 024 12:24 PM CDT [facility] GFR, EST. NONAFRICAN >60 >=60 09/07/2024 12:24 PM CDT [facility] Blood Sub-Q Port Venou s Access Device (Medi-Port, Implanted Port) / Unknown 09/07/2024 11:55 AM CDT 09/07/2024 11:55 AM CDT Markus Finley MD CHEMISTRY ORDERABLES Fin al Result [facility] [address] [place] [address] documented in this encounter Visit Diagnoses Diagnosis [...] Units documented in this encounter Care Teams Divorce Attorney Relationship Specialty Start Date End Date Pritesh Chu MD [address] [address] PCP - General Family Medicine 04/18/24 Markus Finley MD [address] [place] [address] Consulting Physician Medical Oncology 04/18/24 Zander Cha MD [address] [address] Consulting Physician Colon and Rectal Surgery 08/24/24 documented as of this encounter
--- OUTSIDE RECORDS SUMMARY | 2024-10-27 02:43 | XMS_ITS | Encounter Summary ---
Author Organization [employer] Care Team Providers Care Annual Campaign Manager Name Role Phone Pritesh Chu MD Primary Care Provider [phone] Markus Finley MD Unavailable [phone] Zander Cha MD Unavailable Encounter Details Date Type Department Care Team (Latest Contact Info) Description 09/25/2024 Travel Social History Tobacco Use Types Packs/Day Years Used Date Smoking Tobacco: Former Cigarettes 0.5 5.6 S tarted: 04/18/2016 Smokeless Tobacco: Never Alcohol Use Standard Drinks/Week Comments Not Currently 0 (1 standard drink = 0.6 oz pur e alcohol) quit 2023 [facility] Utilities Answer Date Recorded In the past 12 months has [employer], gas, oil, or water [email or web address] threatened to shut off services in your [...] week 09/25/2024 How often do you attend [facility] or bahai services? Never 09/25/2024 Do you belong to [...] medical care, and heating? Somewhat hard 09/25/2024 [facility] - [...] on one occasion? Never 09/25/2024 11:46 AM DIAGNOSTIC SALES SPECIALIST Hayde Hopson documented as of this encounter Plan of Treatment Upcoming Encounters Date Type Department Care Team (Late st Contact Info) Description 11/15/2024 1:00 PM DIAGNOSTIC SALES SPECIALIST [facility] 1 [place] [phone] Markus Finley MD [address] [place] [address] 11/15/2024 2:00 PM DIAGNOSTIC SALES SPECIALIST [facility]ment [facility] 1 [place] [address] Markus Finley MD [address] [place] [address] Discharge Disposition: Discharged to home or Selfcare documented as of this encounter Visit Diagnoses Not on filedocumented in this encounter Care Teams Annual Campaign Manager Relationship Specialty Start Date End Date Pritesh Chu MD [address] [place] [address] PCP - General Family Medicine 04/18/24 Markus Finley MD [address] [place] [address] Consulting Physician Medical Oncology 04/18/24 Zander Cha MD [address] [address] Consulting Physician Colon and Rectal Surgery 08/24/24 documented as of this encounter
--- OUTSIDE RECORDS SUMMARY | 2024-10-27 02:43 | XMS_ITS | Encounter Summary ---
Author Organization [facility] Address [address] [place] [address] Phone Care Team Providers Care Dough Molder Name Role Phone Pritesh Chu MD Primary Care Provider [phone] Markus Finley MD Unavailable [phone] Zander Cha MD Unavailable Reason for Visit * Reason Comments Medication Refill Encounter Details Date Type Department Care Team (Late st Contact Info) Description 09/10/2024 Refill [facility] Oncology Services [address] [place] [phone] Markus Finley MD [address] [place] [address] Medication Refill Social History Tobacco Use Types Packs/Day Years Used Date Smoking Tobacco: Former Cigarettes 0.5 5.6 S tarted: 04/18/2016 Smokeless Tobacco: Never Alcohol Use Standard Drinks/Week Comments Not Currently 0 (1 standard drink = 0.6 oz pur e alcohol) quit 2023 [facility] Utilities Answer Date Recorded In the past 12 months has [employer], oil, or [employer] threatened to shut off services in your home? Patient declined 08/01/2024 Social Connection and Isolation Panel [NHANES] A nswer Date Recorded In a typical week, how many times do you talk on the phone with family, friends, or neighbors? Patient declined 08/01/2024 How often do you get togethe r with friends or relatives? Patient declined 08/01/2024 How often do you attend jew or jew serv ices? Patient declined 08/01/2024 Do you [...] 08/01/2024 [facility] - Occupational Stress Questionnaire [...] a chcf (including now)? Patient declined 08/01/2024 Sexually Active [...] Marie Barclay RN - 09/10/2024 11:09 AM RN ONCOLOGY Potassium refilled per provider will decrease to 40meq daily as lst Potassium level on 09/07 was 4.7patient next follow up scheduled for 09/11/24. ONCOLOGY documented in this encounter Plan of Treatment Upcoming Encounters Date Type Department Care Team (Late st Contact Info) Description 11/15/2024 1:00 PM RN ONCOLOGY Lab [facility] Laboratory Services 1 [place] [address] Markus Finley MD [address] [place] [address] 11/15/2024 2:00 PM RN ONCOLOGY Appointment [facility] MRI [address] [place] [address] Markus Finley MD [address] [place] [address] Discharge Disposition: Discharged to home or Selfcare documented as of this encounter Visit Diagnoses Not on filedocumented in this encounter Care Teams Dough Molder Relationship Specialty Start Date End Date Pritesh Chu MD [address] [place] [address] PCP - General Family Medicine 04/18/24 Markus Finley MD [address] [place] [address] Consulting Physician Medical Oncology 04/18/24 Zander Cha MD [address] [address] Consulting Physician Colon and Rectal Surgery 08/24/24 documented as of this encounter
--- OUTSIDE RECORDS SUMMARY | 2024-10-27 02:44 | XMS_ITS | Encounter Summary ---
Author Organization [facility] Address [address] [place] [address] Phone Care Team Providers Care Mental Health Aide Name Role Phone Pritesh Chu MD Primary Care Provider [phone] Markus Finley MD Unavailable [phone] Zander Cha MD Unavailable Encounter Details Date Type Department Care Team (Late st Contact Info) Description 08/27/2024 Telephone [facility] Oncology Services [address] [place] [phone] Markus Finley MD [address] [place] [address] Social History Tobacco Use Types Packs/Day Years Used Date Smoking Tobacco: Former Cigarettes 0.5 8.5 S tarted: 04/18/2016 Smokeless Tobacco: Never Alcohol Use Standard Drinks/Week Comments Yes 0 (1 standard drink = 0.6 oz pur e alcohol) [facility] Utilities Answer Date Recorded In the past 12 months has [employer], gas, oil, or water company threatened to [...] declined 08/01/2024 How often do you attend jewish or adventist serv ices? Patient declined 08/01/2024 Do you [...] medical care, and heating? Patient declined 08/01/2024 [facility] - Occupational Stress Questionnaire [...] Contact Info) Description 11/15/2024 1:00 PM CAREER LAW CLERK Lab [facility] Laboratory Services 1 [place] [address] Markus Finley MD [address] [place] [address] 11/15/2024 2:00 PM CAREER LAW CLERK Appointment [facility] MRI [address] [place] [phone] Markus Finley MD [address] [place] [address] Discharge Disposition: Discharged to home or Selfcare documented as of this encounter Visit Diagnoses Not on filedocumented in this encounter Care Teams Mental Health Aide Relationship Specialty Start Date End Date Pritesh Chu MD [address] [place] [address] PCP - General Family Medicine 04/18/24 Markus Finley MD [address] [place] [address] Consulting Physician Medical Oncology 04/18/24 Zander Cha MD [address] [address] Consulting Physician Colon and Rectal Surgery 08/24/24 documented as of this encounter
--- OUTSIDE RECORDS SUMMARY | 2024-10-27 02:44 | XMS_ITS | Encounter Summary ---
Author Organization [facility] Address [address] [facility] [place] [address] Phone Care Team Providers Care Surgical Lead Name Role Phone Pritesh Chu MD Primary Care Provider [phone] Markus Finley MD Unavailable [phone] Zander Cha MD Unavailable Reason for Referral * Consult, Test & Initiate Treatment (Routine) - Closed Specialty Diagnoses / Procedures Referred By Contross t Referred To Contact General Surgery Diagnoses Metastatic melanoma (HCC) Subcutaneous nodule of left lower extremity Markus Finley MD [address] [place] [address] Phone: tel: fax: [facility] - General Surgery [facility] #2 [facility] [address] [address] Phone: tel: fax: Referral ID Status Reason Start Date Expiration Date Visits Re quested Visits Authorized [id number] Closed 08/22/2024 1 1 Scheduling Instructions Dayanara [...] fluids normal saline daily via port., Disp: 62338 mL, Rfl: 0 No current facility-administered medications [...] Description 08/20/2024 1:00 PM CDT Office Visit [facility] Oncology Services [address] [place] [address] Markus Finley MD [address] [place] [address] Non-alcoholic fatty liver disease (Primary Dx); Diarrhea [...] In the past 12 months has e [employer], gas, oil, or water [employer] threatened to shut off services in your home? Patient declined 08/01/2024 Social Connection and Isolation Panel [NHANES] A nswer Date Recorded In a typical week, how many times do you talk on the phone with family, friends, or neighbors? Patient declined 08/01/2024 How often do you get togethe r with friends or relatives? Patient declined 08/01/2024 How often do you attend advent or pentecostal serv ices? Patient declined 08/01/2024 Do you belong to any clubs o r organizations such as advent groups, unions, fraternal or athletic groups, or [...] medical care, and heating? Patient declined 08/01/2024 [facility] - [...] a prison (including now)? Patient declined 08/01/2024 Comments No [...] received on 07/17/24. Patient was admitted to [facility] from 07/25/24through 07/30/24 and 08/02/24 through [...] Yervoy and Opdivo on 07/17/24 --admitted to [facility] from 07/25/24 through 07/30/24 and 08/02/24 [...] 4.[address] abdomen pelvis done at [facility] on 06/27/2024 No evidence of [...] patient needs referral to oncological surgeon at [facility]. 9. Obtain C.diff stool testing to assess [...] received on 07/17/24. Patient was admitted to [facility] from 07/25/24through 07/30/24 and 08/02/24 through [...] Yervoy and Opdivo on 07/17/24 --admitted to [facility] from 07/25/24 through 07/30/24 and 08/02/24 [...] 4.[address] abdomen pelvis done at [facility] on 06/27/2024 No evidence of [...] patient needs referral to oncological surgeon at [facility]. 9. Obtain C.diff stool testing to assess [...] st Contact Info) Description 11/15/2024 1:00 PM CAMP ADVISOR Lab [facility] 1 [place] [address] Markus Finley MD [address] [place] [address] 11/15/2024 2:00 PM CAMP ADVISOR [facility]ment [facility] 1 [facility] [place] [address] Markus Finley MD [address] [place] [address] Discharge Disposition: Discharged to home or Selfcare [...] documented as of this encounter Care Teams Surgical Lead Relationship Specialty Start Date End Date Pritesh Chu MD [address] [address] PCP - General Family Medicine 04/18/24 Markus Finley MD [address] [place] [address] Consulting Physician Medical Oncology 04/18/24 Zander Cha MD [address] [address] Consulting Physician Colon and Rectal Surgery 08/24/24 documented as of this encounter
--- OUTSIDE RECORDS SUMMARY | 2024-10-27 02:44 | XMS_ITS | Encounter Summary ---
Author Organization [facility] Address [address] [place] [address] Phone Care Team Providers Care Principal Cloud Architect Name Role Phone Pritesh Chu MD Primary Care Provider [phone] Markus Finley MD Unavailable [phone] Zander Cha MD Unavailable Reason for Visit * Reason Onset Date Comments Medication Refill 08/28/2024 Encounter Details Date Type Department Care Team (Late st Contact Info) Description 08/28/2024 Refill [facility] Oncology Services [address] [place] [phone] Markus Finley MD [address] [place] [address] Medication Refill Social History Tobacco Use Types [...] How often do you attend orthodoxy or jew serv ices? Patient declined 08/01/2024 [...] medical care, and heating? Patient declined 08/01/[address] [facility] [facility] - Occupational Stress Questionnaire Answer Date [...] [facility] in the [facility] were you homeless or living in [...] st Contact Info) Description 11/15/2024 1:00 PM VP DIGITAL MARKETING Lab [facility] 1 [place] [address] Markus Finley MD [address] [place] [address] 11/15/2024 2:00 PM VP DIGITAL MARKETING [facility] [address] [place] [address] Markus Finley MD [address] [place] [address] Discharge Disposition: Discharged to home or Selfcare documented as of this encounter Visit Diagnoses Diagnosis Metastatic melanoma (HCC) Melanoma of skin, site unspecified documented in this encounter Care Teams Principal Cloud Architect Relationship Specialty Start Date End Date Pritesh Chu MD [address] [place] [address] PCP - General Family Medicine 04/18/24 Markus Finley MD [address] [place] [address] Consulting Physician Medical Oncology 04/18/24 Zander Cha MD [address] [address] Consulting Physician Colon and Rectal Surgery 08/24/24 documented as of this encounter
--- OUTSIDE RECORDS SUMMARY | 2024-10-27 02:44 | XMS_ITS | Encounter Summary ---
Author Organization [facility] Address [address] [facility] [place] [address] Phone Care Team Providers Care Sewer Name Role Phone Pritesh Chu MD Primary Care Provider [phone] Markus Finley MD Unavailable Reason for Visit * Episode Based Medications (Routine) - Closed Specialty Diagnoses / Procedures Referred By Contross t Referred To Contact Diagnoses Metastatic melanoma (HCC) Markus Finley MD [address] [place] [address] Phone: tel: fax: [facility] [address] [place] [address] Phone: tel: fax: Referral ID Status Reason Start Date Expiration Date Visits Re quested Visits Authorized [id number] Closed 04/19/2024 1 30 Encounter Details Date Type Department Care Team (Late st Contact Info) Description 08/22/2024 11:30 AM CDT Clinical Support [facility] [address] [place] [address] Anthony Eckert MD [address] [place], [place] [id number] Markus Finley MD [address] [place] [address] Diarrhea due to drug (Primary Dx); Metastatic melanoma (HCC) Discharge Disposition: Discharged to home or Selfcare Social History Tobacco Use Types Packs/Day Years Used Date Smoking Tobacco: Former Cigarettes 0.5 8.5 S tarted: 04/18/2016 Smokeless Tobacco: Never Alcohol Use Standard Drinks/Week Comments Yes 0 (1 standard drink = 0.6 oz pur e alcohol) [facility] Utilities Answer Date Recorded In the past 12 months has e [employer], gas, oil, or water [employer] threatened to shut off services in your home? Patient declined 08/01/2024 Social Connection and Isolation Panel [NHANES] A nswer Date Recorded In a typical week, how many times do you talk on the phone with family, friends, or neighbors? Patient declined 08/01/2024 How often do you get togethe r with friends or relatives? Patient declined 08/01/2024 How often do you attend scientologist or caodaism serv ices? Patient declined 08/01/2024 [...] medical care, and heating? Patient declined 08/01/2024 [facility] [place] of Occupat ional [facility] - Occupational Stress Questionnaire Answer [...] time in the past 12 m [facility], were you homeless or living in a half-way (including now)? Patient declined 08/01/2024 Comments No [...] loose/watery stools, has not been able to pickle solution maker Colestipol r/t insurance. Port accessed per policy, [...] st Contact Info) Description 11/15/2024 1:00 PM CORRECTIONAL FACILITY PSYCHIATRIST [facility] 1 [place] [address] Markus Finley MD [address] [place] [address] 11/15/2024 2:00 PM CORRECTIONAL FACILITY PSYCHIATRIST [facility]ointment [facility] 1 [place] [address] Markus Finley MD [address] [place] [address] Discharge Disposition: Discharged to home or Selfcare [...] Units documented in this encounter Care Teams Sewer Relationship Specialty Start Date End Date Pritesh Chu MD [address] [address] PCP - General Family Medicine 04/18/24 Markus Finley MD [address] [place] [address] Consulting Physician Medical Oncology 04/18/24 documented as of this encounter
--- OUTSIDE RECORDS SUMMARY | 2024-10-27 02:44 | XMS_ITS | Encounter Summary ---
Author Organization [facility] Address [address] [place] [address] Phone Care Team Providers Care Core Placer Name Role Phone Pritesh Chu MD Primary Care Provider [phone] Markus Finley MD Unavailable [phone] Zander Cha MD Unavailable Reason for Visit * Reason Comments Procedure Skin Lesion Remove lesion from l eft calf Encounter Details Date Type Department Care Team (Late st Contact Info) Description 09/04/2024 11:15 AM CDT [facility] - General [facility] - [place] #[address] [address] Zander Cha MD #[address] [address] Metastatic melanoma (HCC) (Primary Dx); Subcutaneous nodule of left lower extremity Discharge Disposition: Discharged to home or Selfcare Social History Tobacco Use Types Packs/Day Years Used Date Smoking Tobacco: Former Cigarettes 0.5 5.6 S tarted: 04/18/2016 Smokeless Tobacco: Never Tobacco Cessation:Counseling Given: Not Answered Alcohol Use Standard Drinks/Week Comments Not Currently 0 (1 standard drink = 0.6 oz pur e alcohol) quit 2023 [facility] Utilities Answer Date Recorded In the [...] declined 08/01/2024 How often do you attend alevism or mormonism serv ices? Patient declined 08/01/2024 Do you belong to any clubs o r organizations such as alevism groups, unions, fraternal or athletic groups, or [...] medical care, and heating? Patient declined 08/01/2024 [facility] of Occupat ional Health - Occupational [...] than 2 cm. Surgeon: Zander Cha MD County Bailiff: Debo Bush RN Anesthesia: 3 cc 1% [...] st Contact Info) Description 11/15/2024 1:00 PM PERSONAL CARE AID [facility] 1 [place] [address] Markus Finley MD [address] [place] [address] 11/15/2024 2:00 PM PERSONAL CARE AID [facility]ment [facility] 1 [place] [address] Markus Finley MD [address] [place] [address] Discharge Disposition: Discharged to home or Selfcare [...] 09/04/2024 01:02 PM ? Ordering Location: ? [facility] - ?Received: ?09/04/2024 01:03 PM ? General Surgery - Rodríguez ? Pathologist: ? Romelia Horn MD PhD ? Specimen: ?Leg, Excision of skin lesion from left lower leg ? 09/06/2024 8:29 AM CDT [facility] FINAL DIAGNOSIS Skin, left lower leg, lesion, excision: - Consistent with metastatic melanoma, 4 mm - Sufficient tumor cells present for molecular studies if clinically indicated 09/06/2024 8:29 AM [facility] Comment A round nodular tumor is present in the dermis. The tumor cells are large epithelioid with large pleomorphic nuclei and prominent nucleoli. There are scant pigments suggesting melanin. 09/06/2024 8:29 AM CDT [facility] Pre-Operative Diagnosis Excision of skin lesion from left lower leg 09/06/2024 8:29 AM [facility] Gross Description A. [...] 44 minutes. KS/sb 09/06/2024 8:29 AM CDT [facility] Microscopic Description Microscopic examination was performed which supports the final diagnosis. All control tissues stained appropriately. 09/06/2024 8:29 AM CDT [facility] Other LOWER LIMB STRUCTURE / Unknown Non-Phlebotomy Collection / Unknown 09/04/2024 1:02 PM CDT 09/04/2024 1:03 PM CDT us Zander Cha MD PATHOLOGY/CYTOLOGY ORDERABLES Fi nal Result [facility] #1 [place] [address] * EXC SKIN MALIG 0.6-1CM TRUNK,ARM,LEG (09/04/2024 [...] 2 cm. ?? Surgeon: Zander Cha MD County Bailiff: Debo Bush RN Anesthesia: ??3 cc 1% [...] Action Date Dose Rate Site lidocaine-EPINEPHrine 1 %-1:112722 injection 3 mL 3 mL, Injection, ONCE, 1 dose, On Tue09/04/24 at 1230Indications:Metastatic melanoma (HCC) Given 09/04/2024 11:51 AM CDT 3 mL documented in this encounter Care Teams Core Placer Relationship Specialty Start Date End Date Pritesh Chu MD [address] [address] PCP - General Family Medicine 04/18/24 Markus Finley MD [address] [place] [address] Consulting Physician Medical Oncology 04/18/24 Zander Cha MD #[address] [address] Consulting Physician Colon and Rectal Surgery 08/24/24 documented as of this encounter
--- OUTSIDE RECORDS SUMMARY | 2024-10-27 02:44 | XMS_ITS | Encounter Summary ---
Author Organization [email or web address] Care Team Providers Care Charging Machine Operator Name Role Phone Pritesh Chu MD Primary Care Provider [phone] Markus Finley MD Unavailable [phone] Encounter Details Date Type Department Care Team (Latest Contact Info) Description 08/22/2024 Travel Social History Tobacco Use Types Packs/Day Years Used Date Smoking Tobacco: Former Cigarettes 0.5 8.5 S tarted: 04/18/2016 Smokeless Tobacco: Never Alcohol Use Standard Drinks/Week Comments Yes 0 (1 standard drink = 0.6 oz pur e alcohol) [facility] Utilities Answer Date Recorded In the past 12 months has [employer], gas, oil, or water [employer] threatened to shut off services in your home? Patient declined 08/01/2024 Social Connection and Isolation Panel [NHANES] A nswer Date Recorded In a typical week, how many times do you talk on the phone with family, friends, or neighbors? Patient declined 08/01/2024 How often do you get togethe r with friends or relatives? Patient declined 08/01/2024 How often do you attend latter-day or alevism serv ices? Patient declined 08/01/2024 [...] medical care, and heating? Patient declined 08/01/2024 [facility] of Occupat ional [facility] - Occupational Stress Questionnaire Answer Date Recorded [...] st Contact Info) Description 11/15/2024 1:00 PM ASSISTANT ART DIRECTOR [facility] 1 [place] [address] Markus Finley MD [address] [place] [address] 11/15/2024 2:00 PM ASSISTANT ART DIRECTOR [facility] 1 [place] [address] Markus Finley MD [address] [place] [address] Discharge Disposition: Discharged to home or Selfcare documented as of this encounter Visit Diagnoses Not on filedocumented in this encounter Care Teams Charging Machine Operator Relationship Specialty Start Date End Date Pritesh Chu MD [address] [place] [address] PCP - General Family Medicine 04/18/24 Markus Finley MD [address] [place] [address] Consulting Physician Medical Oncology 04/18/24 documented as of this encounter
--- OUTSIDE RECORDS SUMMARY | 2024-10-27 02:44 | XMS_ITS | Encounter Summary ---
Author Organization [facility] Address [address] [facility] [place] [address] Phone Care Team Providers Care Top Dyeing Machine Tender Name Role Phone Kellen Chu MD Primary Care Provider [phone] Markus Finley MD Unavailable [phone] Zander Cha MD Unavailable Reason for Visit * Reason Comments Other Metastatic melanoma; subcutaneous nodule of left lower leg * Consult, Test & Initiate Treatment (Routine) - Closed Specialty Diagnoses / Procedures Referred By Contac t Referred To Contact Diagnoses Metastatic melanoma (HCC) Markus Finley MD [address] [place] [address] Phone: tel: fax: [facility] - General [facility] #2 [facility] [address] [address] Phone: tel: fax: Referral ID Status Reason Start Date Expiration Date Visits Re quested Visits Authorized [id number] Closed 08/24/2024 1 1 Encounter Details Date Type Department Care Team (Late st Contact Info) Description 08/29/2024 1:00 PM CDT Office Visit [facility] - General Surgery - [place] #[address] [phone] Markus Finley MD [address] [place] [address] Zander Cha MD #2 [address] [facility] [address] [place] [address] Metastatic melanoma (HCC); Subcutaneous nodule of left lower extremity Discharge Disposition: Discharged to home or Selfcare Social History Tobacco Use Types Packs/Day Years Used Date Smoking Tobacco: Former Cigarettes 0.5 5.6 S tarted: 04/18/2016 Smokeless Tobacco: Never Alcohol Use Standard Drinks/Week Comments Not Currently 0 (1 standard drink = 0.6 oz pur e alcohol) quit 2023 [facility] [employer] Answer Date Recorded In the past 12 months has [employer], gas, oil, or water [employer] threatened to shut off services in your home? Patient declined 08/01/2024 Social Connection and Isolation Panel [NHANES] A nswer Date Recorded In a typical week, how many times do you talk on the phone with family, friends, or neighbors? Patient declined 08/01/2024 How often do you get togethe r with friends or relatives? Patient declined 08/01/2024 How often do you attend cheondoism or druze serv ices? Patient declined 08/01/2024 [...] any time in the past 12 m [facility], were you homeless or living [...] melanoma excision with STSG SKIN GRAFT 08/25/2023 [place] node biopsy at the same time as [...] Session: Patient declined Stress: Patient Declined (08/01/2024) [place] of Occupational Health - Occupational Stress Questionnaire Feeling of Stress : Patient declined Recent Concern: Stress - Stress Concern Present (06/27/2024) [place] of Occupational Health - Occupational Stress Questionnaire Feeling of Stress : To some extent Social Integration: Patient Declined (08/01/2024) Social Connection and Isolation Panel [NHANES] Frequency of Communication with Friends and Family: Patient declined Frequency of Social Gatherings with Friends and Family: Patient declined Attends Temple Services: Patient declined Active Member of Clubs [...] More than three times a week Attends Temple Services: Never Active Member of Clubs or [...] PAINTER ERWIN Brand Cecile 2000 Patient ID ([facility]) [id number] Indications: Pericardial effusion. Study Date07/26/2024 Technical quality: [...] lbs. BMI (BSA) 41.58 kg/m^2 (2.23 m^2) Cracking Machine Operator Bayron Bruno R Room [address] [facility] Referring Physician Silvio Physician Iasbel Diaz No results found for this or [...] stated above. This note was dictated using [employer] dictation system and there may be errors in technical solutions director. Despite proof reading the note, there may be mistakes and I apologize for those. By: Zander Cha MD, 08/29/2024, 2:16 PM CDT Primary Care Physician: KELLEN CHU MD documented in this encounter Plan of Treatment Upcoming Encounters Date Type Department Care Team (Late st Contact Info) Description 11/15/2024 1:00 PM PEOPLESOFT DEVELOPER [facility] 1 [facility] [place] [address] Markus Finley MD [address] [place] [address] 11/15/2024 2:00 PM PEOPLESOFT DEVELOPER [facility]ment [facility] [address] [place] [address] Markus Finley MD [address] [place] [address] Discharge Disposition: Discharged to home or Selfcare documented as of this encounter Visit Diagnoses Diagnosis Metastatic melanoma (HCC) Melanoma of skin, site unspecified Subcutaneous nodule of left lower extremity documented in this encounter Care Teams Top Dyeing Machine Tender Relationship Specialty Start Date End Date Kellen Chu MD [address] [place] [address] PCP - General Family Medicine 04/18/24 Markus Finley MD [address] [place] [address] Consulting Physician Medical Oncology 04/18/24 Zander Cha MD #[address] [address] Consulting Physician Colon and Rectal Surgery 08/24/24 documented as of this encounter
--- OUTSIDE RECORDS SUMMARY | 2024-10-27 02:44 | XMS_ITS | Encounter Summary ---
Author Organization [employer] Care Team Providers Care Color Receiver Name Role Phone Pritesh Chu MD Primary Care Provider [phone] Markus Finley MD Unavailable [phone] Zander Cha MD Unavailable Encounter Details Date Type Department Care Team (Latest Contact Info) Description 08/24/2024 Travel Social History Tobacco Use Types Packs/Day Years Used Date Smoking Tobacco: Former Cigarettes 0.5 8.5 S tarted: 04/18/2016 Smokeless Tobacco: Never Alcohol Use Standard Drinks/Week Comments Yes 0 (1 standard drink = 0.6 oz pur e alcohol) [facility] Utilities Answer Date Recorded In the past 12 months has [employer], gas, oil, or water [employer] threatened to shut off services in your home? Patient declined 08/01/2024 Social Connection and Isolation Panel [NHANES] A nswer Date Recorded In a typical week, how many times do you talk on the phone with family, friends, or neighbors? Patient declined 08/01/2024 How often do you get togethe r with friends or relatives? Patient declined 08/01/2024 How often do you attend religious or lutheran serv ices? Patient declined 08/01/2024 Do you belong to any clubs o r organizations such as religious groups, unions, fraternal or athletic groups, or [...] heating? Patient declined 08/01/2024 [facility] - Occupational Stress Questionnaire Answer [...] st Contact Info) Description 11/15/2024 1:00 PM DISTILLING DEPARTMENT SUPERVISOR [facility] 1 [place] [address] Markus Finley MD [address] [place] [address] 11/15/2024 2:00 PM DISTILLING DEPARTMENT SUPERVISOR [facility] 1 [place] [address] Markus Finley MD [address] [place] [address] Discharge Disposition: Discharged to home or Selfcare documented as of this encounter Visit Diagnoses Not on filedocumented in this encounter Additional Health Concerns Infection Onset Date Last Indicated Resolved Time C. difficile Rule-Out 08/24/2024 08/24/20242023 1:42 PM CDT documented as of this encounter Care Teams Color Receiver Relationship Specialty Start Date End Date Pritesh Chu MD [address] [place] [address] PCP - General Family Medicine 04/18/24 Markus Finley MD [address] [place] [address] Consulting Physician Medical Oncology 04/18/24 Zander Cha MD #[address] [address] Consulting Physician Colon and Rectal Surgery 08/24/24 documented as of this encounter
--- OUTSIDE RECORDS SUMMARY | 2024-10-27 02:44 | XMS_ITS | Encounter Summary ---
Author Organization [facility] Address [address] [place] [address] Phone Care Team Providers Care Savings Counselor Name Role Phone Pritesh Chu MD Primary Care Provider [phone] Markus Finley MD Unavailable Zander Cha MD Unavailable Encounter Details Date Type Department Care Team (Late st Contact Info) Description 08/29/2024 Telephone [facility] On[facility] Services [address] [place] [phone] Markus Finley MD [address] [place] [address] Social History Tobacco Use Types Packs/Day Years Used Date Smoking Tobacco: Former Cigarettes 0.5 5.6 S tarted: 04/18/2016 Smokeless Tobacco: Never Alcohol Use Standard Drinks/Week Comments Not Currently 0 (1 standard drink = 0.6 oz pur e alcohol) quit 2023 [facility] Utilities Answer Date Recorded In the past 12 months has [employer], gas, oil, or water company threatened to [...] How often do you attend pentecostalism or buddhism serv ices? Patient declined 08/01/2024 Do you [...] declined 08/01/2024 [facility] of Occupat ional [facility] - Occupational Stress Questionnaire Answer Date [...] stating too soon. This RN spoke with [facility] pharmacist and informed Dr. Finley had increased frequency earlier this month and that is reasoning why refill is needed sooner. Pharmacist stated she pushed override through and pt should be able to berry picker machine operator rx tomorrow. Pt updated on the above and informed to call office if she has any issues. Pt verbalized understanding. documented in this encounter Plan of Treatment Upcoming Encounters Date Type Department Care Team (Late st Contact Info) Description 11/15/2024 1:00 PM SIGN LANGUAGE TRANSLATOR Lab [facility] Services 1 [place] [address] Markus Finley MD [address] [place] [address] 11/15/2024 2:00 PM SIGN LANGUAGE TRANSLATOR Appointment [facility] MRI [address] [place] [address] Markus Finley MD [address] [place] [address] Discharge Disposition: Discharged to home or Selfcare documented as of this encounter Visit Diagnoses Not on filedocumented in this encounter Care Teams Savings Counselor Relationship Specialty Start Date End Date Pritesh Chu MD [address] [address] PCP - General Family Medicine 04/18/24 Markus Finley MD [address] [place] [address] Consulting Physician Medical Oncology 04/18/24 Zander Cha MD [address] [address] Consulting Physician Colon and Rectal Surgery 08/24/24 documented as of this encounter
--- OUTSIDE RECORDS SUMMARY | 2024-10-27 02:44 | XMS_ITS | Encounter Summary ---
Author Organization [employer] Care Team Providers Care Milk Wagon Driver Name Role Phone Pritesh Chu MD Primary Care Provider [phone] Markus Finley MD Unavailable [phone] Zander Cha MD Unavailable Encounter Details Date Type Department Care Team (Latest Contact Info) Description 08/29/2024 Travel Social History Tobacco Use Types Packs/Day Years Used Date Smoking Tobacco: Former Cigarettes 0.5 5.6 S tarted: 04/18/2016 Smokeless Tobacco: Never Alcohol Use Standard Drinks/Week Comments Not Currently 0 (1 standard drink = 0.6 oz pur e alcohol) quit 2023 [facility] Utilities Answer Date Recorded In the past [address], gas, oil, or water [employer] threatened to shut off services in your home? Patient declined 08/01/2024 Social Connection and Isolation Panel [NHANES] A nswer Date Recorded In a typical week, how many times do you talk on the phone with family, friends, or neighbors? Patient declined 08/01/2024 How often do you get togethe r with friends or relatives? Patient declined 08/01/2024 How often do you attend baptist or protestant serv ices? Patient declined 08/01/2024 Do you [...] Patient declined 08/01/2024 [facility] - Occupational Stress Questionnaire [...] a mcc (including now)? Patient declined 08/01/2024 Sexually Active [...] st Contact Info) Description 11/15/2024 1:00 PM MOTOR EQUIPMENT COMMANDING OFFICER [facility] 1 [place] [address] Markus Finley MD [address] [place] [address] 11/15/2024 2:00 PM MOTOR EQUIPMENT COMMANDING OFFICER [facility] 1 [place] [address] Markus Finley MD [address] [place] [address] Discharge Disposition: Discharged to home or Selfcare documented as of this encounter Visit Diagnoses Not on filedocumented in this encounter Care Teams Milk Wagon Driver Relationship Specialty Start Date End Date Pritesh Chu MD [address] [place], [place] [address] PCP - General Family Medicine 04/18/24 Markus Finley MD [address] [place] [address] Consulting Physician Medical Oncology 04/18/24 Zander Cha MD #[address] [place] [address] Consulting Physician Colon and Rectal Surgery 08/24/24 documented as of this encounter
--- OUTSIDE RECORDS SUMMARY | 2024-10-27 02:44 | XMS_ITS | Encounter Summary ---
Author Organization [facility] Address [address] [facility] [place] [address] Phone Care Team Providers Care Software Licensing Specialist Name Role Phone Pritesh Chu MD Primary Care Provider [phone] Markus Finley MD Unavailable [phone] Zander Cha MD Unavailable Reason for Referral * Consult, Test & Initiate Treatment (Routine) - Closed Specialty Diagnoses / Procedures Referred By Contross t Referred To Contact Diagnoses Metastatic melanoma (HCC) Markus Finley MD [address] [place] [address] Phone: tel: fax: [facility] Medical [facility] - General Surgery [facility] [address] [address] Phone: tel: fax: Referral ID Status Reason Start Date Expiration Date Visits Re quested Visits Authorized [id number] Closed 08/24/2024 1 1 Scheduling Instructions Dayanara is being referred for tissue sample for treatment options. Please contact patient for scheduling questions or concerns. Encounter Details Date Type Department Care Team (Late st Contact Info) Description 08/24/2024 11:30 AM CDT Clinical Support [facility] Oncology Services [address] [place] [address] Markus Finley MD [address] [place] [address] Diarrhea, unspecified type (Primary Dx); Metastatic melanoma (HCC) Discharge Disposition: Discharged to home or Selfcare Social History Tobacco Use Types Packs/Day Years Used Date Smoking Tobacco: Former Cigarettes 0.5 8.5 S tarted: 04/18/2016 Smokeless Tobacco: Never Alcohol Use Standard Drinks/Week Comments Yes 0 (1 standard drink = 0.6 oz pur e alcohol) [facility] Utilities Answer Date Recorded In the past 12 months has [employer], gas, oil, or water [employer] threatened to shut off services in your home? Patient declined 08/01/2024 Social Connection and Isolation Panel [NHANES] A nswer Date Recorded In a typical week, how many times do you talk on the phone with family, friends, or neighbors? Patient declined 08/01/2024 How often do you get togethe r with friends or relatives? Patient declined 08/01/2024 How often do you attend denominational or hindu serv ices? Patient declined 08/01/2024 [...] medical care, and heating? Patient declined 08/01/2024 [facility] - [...] st Contact Info) Description 11/15/2024 1:00 PM DENTURE PROCESSOR [facility] [address] [place] [address] Markus Finley MD [address] [place] [address] 11/15/2024 2:00 PM DENTURE PROCESSOR [facility] 1 [place] [address] Markus Finley MD [address] [place] [address] Discharge Disposition: Discharged to home or Selfcare [...] - 145 mmol/L 08/24/2024 12:43 PM CDT [facility] POTASSIUM 3.5 3.5 - 5.1 mmol/L 08/24/2024 12:43 PM CDT [facility] CHLORIDE 106 98 - 107 mmol/L 08/24/2024 12:43 PM CDT [facility] CO2, VENOUS 22 22 - 30 mmol/L 08/24/2024 12:43 PM CDT [facility] ANION GAP 13.5 <18.0 mmol/L 08/24/2024 12:43 PM CDT [facility] GLUCOSE 98 70 - 99 mg/dL 08/24/2024 12:43 PM CDT [facility] BUN 17 5 - 18 mg/dL 08/24/2024 12:43 PM CDT [facility] CREATININE, BLOOD 0.95 0.60 - 1.00 mg/dL 08/24/2024 12:43 PM CDT [facility] BUN/CREATININE RATIO 18 12 - 20 ratio 08/24/2024 12:43 PM CDT [facility] TOTAL PROTEIN 5.6(L) 6.3 - 8.2 g/dL 08/24/2024 12:43 PM CDT [facility] ALBUMIN 3.5 3.5 - 5.0 g/dL 08/24/2024 12:43 PM CDT [facility] A/G RATIO 1.7 1.0 - 2.2 08/24/2024 12:43 PM CDT [facility] CALCIUM 8.7 8.7 - 10.5 mg/dL 08/24/2024 12:43 PM CDT [facility] T BILI 0.5 0.2 - 1.2 mg/dL 08/24/2024 12:43 PM CDT [facility] SGOT (AST) 27 5 - 34 U/L 08/24/2024 12:43 PM CDT [facility] SGPT (ALT) 107(H) 0 - 55 U/L 08/24/2024 12:43 PM CDT [facility] ALKALINE PHOSPHATASE 56 40 - 150 U/L 08/24/2024 12:43 PM CDT [facility] IS THE PATIENT REQUIRED TO BE FASTING? No 08/24/2024 12:43 PM CDT [facility] GFR, ESTIMATED >60 >=60 08/24/2024 12:43 PM CDT [facility] Comment: Creatinine Clearance is the preferred criteria for selecting drug dose adjustments in renally impaired patients. ??The GFR is provided as additional pertinent clinical information. GFR is reported in mL/min/1.73 sq m. Calculation based on the Chronic Kidney Disease Epidemiology Collaboration (CKD- EPI) equation refit without adjustment for race. GFR, EST. >60 >=60 024 12:43 PM CDT [facility] GFR, EST. NONAFRICAN >60 >=60 08/24/2024 12:43 PM CDT [facility] Blood Venipuncture / Unknown 08/24/2024 12:05 PM CDT 08/24/2024 12:05 PM CDT Markus Finley MD CHEMISTRY ORDERABLES Fin al Result [facility] [address] [place] [address] * C. DIFF BY PCR (08/24/2024 11:39 AM CDT) C DIFF TOXIN DNA BY PCR Negative Negative, Invalid 08/24/2024 1:42 PM CDT [facility] Other STOOL SPECIMEN / Unknown Non-Phlebotomy Collection / Unknown 08/24/2024 11:39 AM CDT 08/24/2024 11:39 AM CDT Markus Finley MD MICROBIOLOGY - GENERAL O RDERABLES Final Result [facility] [address] [place] [address] documented in this encounter Visit Diagnoses Diagnosis [...] documented as of this encounter Care Teams Software Licensing Specialist Relationship Specialty Start Date End Date Pritesh Chu MD [address] [place] [address] PCP - General Family Medicine 04/18/24 Markus Finley MD [address] [place] [address] Consulting Physician Medical Oncology 04/18/24 Zander Cha MD [address] [address] Consulting Physician Colon and Rectal Surgery 08/24/24 documented as of this encounter
--- OUTSIDE RECORDS SUMMARY | 2024-10-27 02:44 | XMS_ITS | Encounter Summary ---
Author Organization [employer] Care Team Providers Care Director Of Digital Marketing Name Role Phone Pritesh Chu MD Primary Care Provider [phone] Markus Finley MD Unavailable [phone] Zander Cha MD Unavailable Encounter Details Date Type Department Care Team (Latest Contact Info) Description 09/04/2024 Travel Social History Tobacco Use Types Packs/Day Years Used Date Smoking Tobacco: Former Cigarettes 0.5 5.6 S tarted: 04/18/2016 Smokeless Tobacco: Never Alcohol Use Standard Drinks/Week Comments Not Currently 0 (1 standard drink = 0.6 oz pur e alcohol) quit 2023 [facility] Utilities Answer Date Recorded In the past 12 months has [employer], gas, oil, or water [employer] threatened to shut off services in your home? Patient declined 08/01/2024 Social Connection and Isolation Panel [NHANES] A nswer Date Recorded In a typical week, how many times do you talk on the phone with family, friends, or neighbors? Patient declined 08/01/2024 How often do you get togethe r with friends or relatives? Patient declined 08/01/2024 How often do you attend orthodoxy or holiness serv ices? Patient declined 08/01/2024 [...] care, and heating? Patient declined 08/01/2024 [facility] - Occupational Stress Questionnaire Answer [...] in the past 12 m [facility], were you homeless or living in a [...] st Contact Info) Description 11/15/2024 1:00 PM [facility] [address] [place] [address] Markus Finley MD [address] [place] [address] 11/15/2024 2:00 PM CPC [facility] 1 [place] [address] Markus Finley MD [address] [place] [address] Discharge Disposition: Discharged to home or Selfcare documented as of this encounter Visit Diagnoses Not on filedocumented in this encounter Care Teams Director Of Digital Marketing Relationship Specialty Start Date End Date Pritesh Chu MD [address] [place], [place] [id number] PCP - General Family Medicine 04/18/24 Markus Finley MD [address] [place] [address] Consulting Physician Medical Oncology 04/18/24 Zander Cha MD [address] [place] [address] Consulting Physician Colon and Rectal Surgery 08/24/24 documented as of this encounter
--- OUTSIDE RECORDS SUMMARY | 2024-10-27 02:44 | XMS_ITS | Encounter Summary ---
Author Organization [employer] Care Team Providers Care Counter Attendant Name Role Phone Pritesh Chu MD Primary Care Provider Markus Finley MD Unavailable [phone] Encounter Details Date Type Department Care Team [...] Recorded In the past 12 months has [employer], gas, oil, or water [employer] threatened to shut off services in your home? Patient declined 08/01/2024 Social Connection and Isolation Panel [NHANES] A nswer Date Recorded In a typical week, how many times do you talk on the phone with family, friends, or neighbors? Patient declined 08/01/2024 How often do you get togethe r with friends or relatives? Patient declined 08/01/2024 How often do you attend buddhist or evangelical serv ices? Patient declined 08/01/2024 [...] medical care, and heating? Patient declined 08/01/2024 [facility] - Occupational Stress Questionnaire Answer [...] st Contact Info) Description 11/15/2024 1:00 PM SAMPLE DRILLER Lab [facility] 1 [place] [address] Markus Finley MD [address] [place] [address] 11/15/2024 2:00 PM SAMPLE DRILLER Appointment [facility] 1 [place] [address] Markus Finley MD [address] [place] [address] Discharge Disposition: Discharged to home or Selfcare documented as of this encounter Visit Diagnoses Not on filedocumented in this encounter Care Teams Counter Attendant Relationship Specialty Start Date End Date Pritesh Chu MD [address] [address] PCP - General Family Medicine 04/18/24 Markus Finley MD [address] [place] [address] Consulting Physician Medical Oncology 04/18/24 documented as of this encounter
--- OUTSIDE RECORDS SUMMARY | 2024-10-27 02:44 | XMS_ITS | Encounter Summary ---
Author Organization [facility] Address [address] [facility] [place] [address] Phone Care Team Providers Care Heat And Frost Insulator Name Role Phone Pritesh Chu MD Primary Care Provider [phone] Markus Finley MD Unavailable [phone] Encounter Details Date Type Department Care Team (Late st Contact Info) Description 08/20/2024 1:40 PM CDT Clinical Support [facility] Oncology Services [address] [place] [address] Markus Finley MD [address] [place] [address] Metastatic melanoma (HCC) (Primary Dx) Discharge Disposition: Discharged to home or Selfcare Social History Tobacco Use Types Packs/Day Years Used Date Smoking Tobacco: Former Cigarettes 0.5 8.5 S tarted: 04/18/2016 Smokeless Tobacco: Never Alcohol Use Standard Drinks/Week Comments Yes 0 (1 standard drink = 0.6 oz pur e alcohol) [facility] Utilities Answer Date Recorded In the past 12 months has [employer], gas, oil, or water [employer] threatened to shut off services in your home? Patient declined 08/01/2024 Social Connection and Isolation Panel [NHANES] A nswer Date Recorded In a typical week, how many times do you talk on the phone with family, friends, or neighbors? Patient declined 08/01/2024 How often do you get togethe r with friends or relatives? Patient declined 08/01/2024 How often do you attend taoist or orthodox serv ices? Patient declined 08/01/2024 [...] [facility] [...] st Contact Info) Description 11/15/2024 1:00 PM ELEMENT SETTER Lab [facility] Laboratory Services [address] [place] [address] Markus Finley MD [address] [place] [address] 11/15/2024 2:00 PM ELEMENT SETTER Appointment [facility] MRI 1 [facility] [place] [phone] Markus Finley MD [address] [place] [address] Discharge Disposition: Discharged to home or Selfcare [...] 12.00 10(3)/mcL 08/20/2024 2:54 PM CDT [facility] RBC 4.11 3.80 - 5.30 10(6)/mcL 08/20/2024 2:54 PM CDT [facility] HEMOGLOBIN (HGB) 12.3 12.0 - 15.8 g/dL 08/20/2024 2:54 PM CDT [facility] HEMATOCRIT (HCT) 36.7 36.0 - 47.0 % 08/20/2024 2:54 PM CDT [facility] MCV 89.3 82.0 - 96.0 fL 08/20/2024 2:54 PM CDT [facility] MCH 29.9 26.0 - 34.0 pg 08/20/2024 2:54 PM CDT [facility] MCHC 33.5 31.0 - 36.0 g/dL 08/20/2024 2:54 PM CDT [facility] PLATELET COUNT 263 140 - 440 10(3)/[facility] 08/20/2024 2:54 PM CDT [facility] RDW 14.5 11.8 - 15.5 % 08/20/2024 2:54 PM CDT [facility] MPV 9.6(L) 9.7 - 12.4 fL 08/20/2024 2:54 PM CDT [facility] NEUTROPHILS 90.0(H) 47.0 - 73.0 % 08/20/2024 2:54 PM CDT [facility] LYMPHOCYTES 5.8(L) 18.0 - 42.0 % 08/20/2024 2:54 PM CDT [facility] MONOCYTES 4.2 4.0 - 12.0 % 08/20/2024 2:54 PM CDT [facility] EOSINOPHILS 0.0 0.0 - 5.0 % 08/20/2024 2:54 PM CDT [facility] BASOPHILS 0.0 0.0 - 1.0 % 08/20/2024 2:54 PM CDT [facility] ABSOLUTE NEUTROPHILS 4.98 1.60 - 7.70 10(3)/[facility] 08/20/2024 2:54 PM CDT [facility] ABSOLUTE LYMPHOCYTES 0.32(L) 1.30 - 3.20 10(3)/[facility] 08/20/2024 2:54 PM CDT [facility] ABSOLUTE MONOCYTES 0.23 0.20 - 1.00 10(3)/[facility] 08/20/2024 2:54 PM CDT [facility] ABSOLUTE EOSINOPHIL 0.00 0.00 - 0.40 10(3)/[facility] 08/20/2024 2:54 PM CDT [facility] ABSOLUTE BASOPHILS 0.00 0.00 - 0.10 10(3)/[facility] 08/20/2024 2:54 PM CDT [facility] NRBC PER 100 WBC 0 08/20/20 2:54 PM CDT [facility] Blood Venipuncture / Unknown 08/20/2024 2:00 PM CDT 08/20/2024 2:02 PM CDT us Markus Finley MD HEMATOLOGY ORDERABLES Fi nal Result [facility] [address] [place] [address] * (ABNORMAL) CMP (COMPREHENSIVE METABOLIC PANEL) (08/20/2024 2:00 PM CDT) SODIUM 133(L) 136 - 145 mmol/L 08/20/2024 2:59 PM CDT [facility] POTASSIUM 4.3 3.5 - 5.1 mmol/L 08/20/2024 2:59 PM CDT [facility] CHLORIDE 106 98 - 107 mmol/L 08/20/2024 2:59 PM CDT [facility] CO2, VENOUS 18(L) 22 - 30 mmol/L 08/20/2024 2:59 PM CDT [facility] ANION GAP 13.3 <18.0 mmol/L 08/20/2024 2:59 PM CDT [facility] GLUCOSE 121(H) 70 - 99 mg/dL 08/20/2024 2:59 PM CDT [facility] BUN 18 5 - 18 mg/dL 08/20/2024 2:59 PM CDT [facility] CREATININE, BLOOD 0.87 0.60 - 1.00 mg/dL 08/20/2024 2:59 PM CDT [facility] BUN/CREATININE RATIO 21(H) 12 - 20 ratio 08/20/2024 2:59 PM CDT [facility] TOTAL PROTEIN 6.0(L) 6.3 - 8.2 g/dL 08/20/2024 2:59 PM CDT [facility] ALBUMIN 3.7 3.5 - 5.0 g/dL 08/20/2024 2:59 PM CDT [facility] A/G RATIO 1.6 1.0 - 2.2 08/20/2024 2:59 PM CDT [facility] CALCIUM 8.9 8.7 - 10.5 mg/dL 08/20/2024 2:59 PM CDT [facility] T BILI 0.4 0.2 - 1.2 mg/dL 08/20/2024 2:59 PM CDT [facility] SGOT (AST) 13 5 - 34 U/L 08/20/2024 2:59 PM CDT [facility] SGPT (ALT) 43 0 - 55 U/L 08/20/2024 2:59 PM CDT [facility] ALKALINE PHOSPHATASE 64 40 - 150 U/L 08/20/2024 2:59 PM CDT [facility] IS THE PATIENT REQUIRED TO BE FASTING? No 08/20/2024 2:59 PM CDT [facility] GFR, ESTIMATED >60 >=60 08/20/2024 2:59 PM CDT [facility] Comment: Creatinine Clearance is the preferred criteria for selecting drug dose adjustments in renally impaired patients. ??The GFR is provided as additional pertinent clinical information. GFR is reported in mL/min/1.73 sq m. Calculation based on the Chronic Kidney Disease Epidemiology Collaboration (CKD- EPI) equation refit without adjustment for race. GFR, EST. >60 >=60 024 2:59 PM CDT [facility] GFR, EST. NONAFRICAN >60 >=60 08/20/2024 2:59 PM CDT [facility] Blood Venipuncture / Unknown 08/20/2024 2:00 PM CDT 08/20/2024 2:02 PM CDT Markus Finley MD CHEMISTRY ORDERABLES Fin al Result [facility] [address] [place] [address] documented in this encounter Visit Diagnoses Diagnosis [...] Units documented in this encounter Care Teams Heat And Frost Insulator Relationship Specialty Start Date End Date Pritesh Chu MD [address] [address] PCP - General Family Medicine 04/18/24 Markus Finley MD [address] [place] [address] Consulting Physician Medical Oncology 04/18/24 documented as of this encounter
--- OUTSIDE RECORDS SUMMARY | 2024-10-27 02:46 | XMS_ITS | Encounter Summary ---
Author Organization [facility] Address [address] [facility] [place] [address] Phone Care Team Providers Care Teleservices Representative Name Role Phone Pritesh Chu MD Primary Care Provider [phone] Markus Finley MD Unavailable [phone] Reason for Visit * Episode Based Medications (Routine) - Closed Specialty Diagnoses / Procedures Referred By Contross t Referred To Contact Diagnoses Metastatic melanoma (HCC) Markus Finley MD [address] [place] [address] Phone: tel: fax: [facility] Oncology Services [address] [place] [address] Phone: tel: fax: Referral ID Status Reason Start Date Expiration Date Visits Re quested Visits Authorized [id number] Closed 04/19/2024 1 30 Encounter Details Date Type Department Care Team (Late st Contact Info) Description 08/15/2024 11:30 AM CDT Clinical Support [facility] Oncology Services [address] [place] [address] Markus Finley MD [address] [place] [address] Metastatic melanoma (HCC) Discharge Disposition: Discharged to home or Selfcare Social History Tobacco Use Types Packs/Day Years Used Date Smoking Tobacco: Former Cigarettes 0.5 8.5 S tarted: 04/18/2016 Smokeless Tobacco: Never Alcohol Use Standard Drinks/Week Comments Yes 0 (1 standard drink = 0.6 oz pur e alcohol) [facility] Utilities Answer Date Recorded In the [...] How often do you attend orthodoxy or orthodoxy serv ices? Patient declined 08/01/2024 Do you [...] medical care, and heating? Patient declined 08/01/2024 [facility] of Occupat ional Health - Occupational Stress [...] Contact Info) Description 11/15/2024 1:00 PM LEAD RUBY ON RAILS DEVELOPER Lab [facility] 1 [place] [address] Markus Finley MD [address] [place] [address] 11/15/2024 2:00 PM LEAD RUBY ON RAILS DEVELOPER [facility]ment [facility] 1 [facility] [place] [address] Markus Finley MD [address] [place] [address] Discharge Disposition: Discharged to home or Selfcare documented as of this encounter Procedures Procedure Name Priority Date/Time Associated Diagnosis Comments CMP (COMPREHENSIVE METABOLIC PANEL) STAT 08/15/2024 11:35 AM CDT Metastatic melanoma (HCC) documented in this encounter Results * (ABNORMAL) CMP (COMPREHENSIVE METABOLIC PANEL) (08/15/2024 11:35 AM CDT) SODIUM 132(L) 136 - 145 mmol/L 08/15/2024 12:21 PM CDT [facility] POTASSIUM 4.0 3.5 - 5.1 mmol/L 08/15/2024 12:21 PM T [facility] CHLORIDE 100 98 - 107 mmol/L 08/15/2024 12:21 PM CDT [facility] CO2, VENOUS 25 22 - 30 mmol/L 08/15/2024 12:21 PM T [facility] ANION GAP 11.0 <18.0 mmol/L 08/15/2024 12:21 PM T [facility] GLUCOSE 87 70 - 99 mg/dL 08/15/2024 12:21 PM T [facility] BUN 24(H) 5 - 18 mg/dL 08/15/2024 12:21 PM T [facility] CREATININE, BLOOD 0.91 0.60 - 1.00 mg/dL 08/15/2024 12:21 PM T [facility] BUN/CREATININE RATIO 26(H) 12 - 20 ratio 08/15/2024 12:21 PM CDT [facility] TOTAL PROTEIN 6.2(L) 6.3 - 8.2 g/dL 08/15/2024 12:21 PM T [facility] ALBUMIN 3.7 3.5 - 5.0 g/dL 08/15/2024 12:21 PM CDT [facility] A/G RATIO 1.5 1.0 - 2.2 08/15/2024 12:21 PM T [facility] CALCIUM 8.8 8.7 - 10.5 mg/dL 08/15/2024 12:21 PM CDT [facility] T BILI 0.9 0.2 - 1.2 mg/dL 08/15/2024 12:21 PM T [facility] SGOT (AST) 21 5 - 34 U/L 08/15/2024 12:21 PM CDT [facility] SGPT (ALT) 69(H) 0 - 55 U/L 08/15/2024 12:21 PM CDT [facility] ALKALINE PHOSPHATASE 65 40 - 150 U/L 08/15/2024 12:21 PM CDT [facility] IS THE PATIENT REQUIRED TO BE FASTING? No 08/15/2024 12:21 PM CDT [facility] GFR, ESTIMATED >60 >=60 08/15/2024 12:21 PM CDT [facility] Comment: Creatinine Clearance is the preferred criteria for selecting drug dose adjustments in renally impaired patients. ??The GFR is provided as additional pertinent clinical information. GFR is reported in mL/min/1.73 sq m. Calculation based on the Chronic Kidney Disease Epidemiology Collaboration (CKD- EPI) equation refit without adjustment for race. GFR, EST. >60 >=60 024 12:21 PM CDT [facility] GFR, EST. NONAFRICAN >60 >=60 08/15/2024 12:21 PM CDT [facility] Blood Sub-Q Port Venou s Access Device (Medi-Port, Implanted Port) / Unknown 08/15/2024 11:35 AM CDT 08/15/2024 11:35 AM CDT Markus Finley MD CHEMISTRY ORDERABLES Fin al Result [facility] [address] [place] [address] documented in this encounter Visit Diagnoses Diagnosis [...] Units documented in this encounter Care Teams Teleservices Representative Relationship Specialty Start Date End Date Pritesh Chu MD [address] [address] PCP - General Family Medicine 04/18/24 Markus Finley MD [address] [place] [address] Consulting Physician Medical Oncology 04/18/24 documented as of this encounter
--- OUTSIDE RECORDS SUMMARY | 2024-10-27 02:46 | XMS_ITS | Encounter Summary ---
Author Organization [facility] Address [address] [place] [address] Phone Care Team Providers Care Director Water And Waste Services Name Role Phone Pritesh Chu MD Primary Care Provider [phone] Markus Finley MD Unavailable [phone] Reason for Visit * Reason Onset Date Comments Transition of Care 08/09/2024 Week #1 Encounter Details Date Type Department Care Team (Late st Contact Info) Description 08/09/2024 Patient Outreach [facility] [employer] [address] [place], [place] [address] Lucille Lawson RN [place] Transition of Care (Week #1 ) Social History Tobacco Use Types Packs/Day Years Used Date Smoking Tobacco: Former Cigarettes 0.5 8.5 S tarted: 04/18/2016 Smokeless Tobacco: Never Alcohol Use Standard Drinks/Week Comments Yes 0 (1 standard drink = 0.6 oz pur e alcohol) [facility] Utilities Answer Date Recorded In the [...] How often do you attend jain or samaritan serv ices? Patient declined 08/01/2024 [...] heating? Patient declined 08/01/2024 [employer] of Occupat ional Health - Occupational Stress [...] declined 08/01/2024 Housing Stability Vital Sign Answer Hsahid e Recorded In the last 12 months, [...] as of this encounter Progress Notes * Luiclle Lawson RN - 08/09/2024 3:42 PM CDT [...] Reviewed: Yes Next Steps: follow up with reel blade bender furnace tender as schedule RN Care Management Assessment Scheduled: no does not want Social Work Assessment needed: no Patient needs further transition of care calls: No, not needed Please call Operations Manager/Coordinator Lucille Lawson RN at [phone] with any questions. Follow Up Appointments: Patient and specifications writer reviewed upcoming appointments and patient acknowledged understanding. All Patient Appointments Provider Department Dept Phone 08/10/2024 11:00 AM [facility] CC INFUSION BED1 [facility] Oncology Services [phone] 08/13/2024 2:00 PM Markus Finley [facility] Oncology Services [phone] 08/15/2024 3:00 PM [id number] [facility] PET [phone] documented in this encounter Plan of Treatment Upcoming Encounters Date Type Department Care Team (Late st Contact Info) Description 11/15/2024 1:00 PM WATER RESOURCES ENGINEER Lab [facility] Laboratory Services 1 [place] [address] Markus Finley MD [address] [place] [address] 11/15/2024 2:00 PM WATER RESOURCES ENGINEER Appointment [facility] MRI 1 [place] [phone] Markus Finley MD [address] [place] [address] Discharge Disposition: Discharged to home or Selfcare documented as of this encounter Visit Diagnoses Not on filedocumented in this encounter Care Teams Director Water And Waste Services Relationship Specialty Start Date End Date Pritesh Chu MD [address] [place] [address] PCP - General Family Medicine 04/18/24 Markus Finley MD [address] [place] [address] Consulting Physician Medical Oncology 04/18/24 documented as of this encounter
--- OUTSIDE RECORDS SUMMARY | 2024-10-27 02:46 | XMS_ITS | Encounter Summary ---
Author Organization [employer] Care Team Providers Care Med Specialist Name Role Phone Pritesh Chu MD Primary Care Provider [phone] Markus Finley MD Unavailable [phone] Encounter Details Date Type Department Care Team [...] Recorded In the past 12 months has [employer], gas, oil, or water [employer] threatened to shut off services in [...] How often do you attend anglican or jain serv ices? Patient declined 08/01/2024 Do you [...] heating? Patient declined 08/01/2024 [facility] Occupat ional [facility] - Occupational Stress Questionnaire Answer Date [...] st Contact Info) Description 11/15/2024 1:00 PM COLOR WEIGHER [facility] [address] [place] [address] Markus Finley MD [address] [place] [address] 11/15/2024 2:00 PM COLOR WEIGHER [facility]ment [facility] 1 [place] [address] Markus Finley MD [address] [place] [address] Discharge Disposition: Discharged to home or Selfcare documented as of this encounter Visit Diagnoses Not on filedocumented in this encounter Care Teams Med Specialist Relationship Specialty Start Date End Date Pritesh Chu MD [address] [place] [address] PCP - General Family Medicine 04/18/24 Markus Finley MD [address] [place] [address] Consulting Physician Medical Oncology 04/18/24 documented as of this encounter
--- OUTSIDE RECORDS SUMMARY | 2024-10-27 02:46 | XMS_ITS | Encounter Summary ---
Author Organization [employer] Care Team Providers Care Coordinator Of Evaluation Name Role Phone Pritesh Chu MD Primary Care Provider [phone] Markus Finley MD Unavailable Encounter Details Date Type Department Care Team (Latest Contact Info) Description 08/08/2024 Travel Social History Tobacco Use Types Packs/Day Years Used Date Smoking Tobacco: Former Cigarettes 0.5 8.5 S tarted: 04/18/2016 Smokeless Tobacco: Never Alcohol Use Standard Drinks/Week Comments Yes 0 (1 standard drink = 0.6 oz pur e alcohol) [facility] Utilities Answer Date Recorded In the past 12 months has [employer], gas, oil, or water [employer] threatened to shut off services in your home? Patient declined 08/01/2024 Social Connection and Isolation Panel [NHANES] A nswer Date Recorded In a typical week, how many times do you talk on the phone with family, friends, or neighbors? Patient declined 08/01/2024 How often do you get togethe r with friends or relatives? Patient declined 08/01/2024 How often do you attend latter-day or yazidism serv ices? Patient declined 08/01/2024 [...] [facility] ional [facility] - Occupational Stress Questionnaire Answer Date [...] st Contact Info) Description 11/15/2024 1:00 PM PANEL MACHINE SETTER [facility] [address] [place] [address] Markus Finley MD [address] [place] [address] 11/15/2024 2:00 PM PANEL MACHINE SETTER [facility]ment [facility] [address] [place] [address] Markus Finley MD [address] [place] [address] Discharge Disposition: Discharged to home or Selfcare documented as of this encounter Visit Diagnoses Not on filedocumented in this encounter Care Teams Coordinator Of Evaluation Relationship Specialty Start Date End Date Pritesh Chu MD [address] [place] [address] PCP - General Family Medicine 04/18/24 Markus Finley MD [address] [place] [address] Consulting Physician Medical Oncology 04/18/24 documented as of this encounter
--- OUTSIDE RECORDS SUMMARY | 2024-10-27 02:46 | XMS_ITS | Encounter Summary ---
Author Organization [facility] Address [address] [facility], [place] [address] Phone Care Team Providers Care Design Painter Name Role Phone Pritesh Chu MD Primary Care Provider [phone] Markus Finley MD Unavailable [phone] Encounter Details Date Type Department Care Team (Late st Contact Info) Description 08/13/2024 11:30 AM CDT Clinical Support [facility] Oncology Services [address] [place] [phone] Markus Finley MD [address] [place] [address] Acute renal failure, unspecified acute renal failure type (HCC) (Primary Dx); Metastatic melanoma (HCC) Discharge Disposition: Discharged to home or Selfcare Social History Tobacco Use Types Packs/Day Years Used Date Smoking Tobacco: Former Cigarettes 0.5 8.5 S tarted: 04/18/2016 Smokeless Tobacco: Never Alcohol Use Standard Drinks/Week Comments Yes 0 (1 standard drink = 0.6 oz pur e alcohol) [facility] Utilities Answer Date Recorded In the past 12 months has th e electric, gas, oil, or water [employer] threatened to shut off services in your home? Patient declined 08/01/2024 Social Connection and Isolation Panel [NHANES] A nswer Date Recorded In a typical week, how many times do you talk on the phone with family, friends, or neighbors? Patient declined 08/01/2024 How often do you get togethe r with friends or relatives? Patient declined 08/01/2024 How often do you attend alevism or christianity serv ices? Patient declined 08/01/2024 [...] 08/01/2024 [facility] - Occupational Stress Questionnaire Answer [...] st Contact Info) Description 11/15/2024 1:00 PM ICE CUTTER [facility] [address] [place] [address] Markus Finley MD [address] [place] [address] 11/15/2024 2:00 PM ICE CUTTER [facility]ment [facility] [address] [place] [address] Markus Finley MD [address] [place] [address] Discharge Disposition: Discharged to home or Selfcare documented as of this encounter Procedures Procedure Name Priority Date/Time Associated Diagnosis Comments CMP (COMPREHENSIVE METABOLIC PANEL) STAT 08/13/2024 11:39 AM CDT Metastatic melanoma (HCC) documented in this encounter Results * (ABNORMAL) CMP (COMPREHENSIVE METABOLIC PANEL) (08/13/2024 11:39 AM CDT) SODIUM 132(L) 136 - 145 mmol/L 08/13/2024 12:47 PM CDT [facility] POTASSIUM 3.8 3.5 - 5.1 mmol/L 08/13/2024 12:47 PM CDT [facility] CHLORIDE 99 98 - 107 mmol/L 08/13/2024 12:47 PM CDT [facility] CO2, VENOUS 26 22 - 30 mmol/L 08/13/2024 12:47 PM CDT [facility] ANION GAP 10.8 <18.0 mmol/L 08/13/2024 12:47 PM CDT [facility] GLUCOSE 127(H) 70 - 99 mg/dL 08/13/2024 12:47 PM CDT [facility] BUN 16 5 - 18 mg/dL 08/13/2024 12:47 PM T [facility] CREATININE, BLOOD 0.88 0.60 - 1.00 mg/dL 08/13/2024 12:47 PM T [facility] BUN/CREATININE RATIO 18 12 - 20 ratio 08/13/2024 12:47 PM [facility] TOTAL PROTEIN 6.2(L) 6.3 - 8.2 g/dL 08/13/2024 12:47 PM CDT [facility] ALBUMIN 3.7 3.5 - 5.0 g/dL 08/13/2024 12:47 PM [facility] A/G RATIO 1.5 1.0 - 2.2 08/13/2024 12:47 PM T [facility] CALCIUM 8.9 8.7 - 10.5 mg/dL 08/13/2024 12:47 PM T [facility] T BILI 0.7 0.2 - 1.2 mg/dL 08/13/2024 12:47 PM [facility] SGOT (AST) 17 5 - 34 U/L 08/13/2024 12:47 PM [facility] SGPT (ALT) 62(H) 0 - 55 U/L 08/13/2024 12:47 PM [facility] ALKALINE PHOSPHATASE 75 40 - 150 U/L 08/13/2024 12:47 PM [facility] IS THE PATIENT REQUIRED TO BE FASTING? No 08/13/2024 12:47 PM T [facility] GFR, ESTIMATED >60 >=60 08/13/2024 12:47 PM [facility] Comment: Creatinine Clearance is the preferred criteria for selecting drug dose adjustments in renally impaired patients. ??The GFR is provided as additional pertinent clinical information. GFR is reported in mL/min/1.73 sq m. Calculation based on the Chronic Kidney Disease Epidemiology Collaboration (CKD- EPI) equation refit without adjustment for race. GFR, EST. >60 >=60 024 12:47 PM CDT [facility] GFR, EST. NONAFRICAN >60 >=60 08/13/2024 12:47 PM CDT [facility] Blood Sub-Q Port Venou s Access Device (Medi-Port, Implanted Port) / Unknown 08/13/2024 11:39 AM CDT 08/13/2024 11:39 AM CDT us Markus Finley MD CHEMISTRY ORDERABLES Fin al Result [facility] LAB #[address] [place] [address] documented in this encounter Visit Diagnoses Diagnosis [...] Units documented in this encounter Care Teams Design Painter Relationship Specialty Start Date End Date Pritesh Chu MD [address] [address] PCP - General Family Medicine 04/18/24 Markus Finley MD [address] [place] [address] Consulting Physician Medical Oncology 04/18/24 documented as of this encounter
--- OUTSIDE RECORDS SUMMARY | 2024-10-27 02:46 | XMS_ITS | Encounter Summary ---
Author Organization [facility] Address [address] [place] [address] Phone Care Team Providers Care Cable Hooker Name Role Phone Pritesh Chu MD Primary Care Provider [phone] Markus Finley MD Unavailable [phone] Reason for Visit * Episode Based Medications (Routine) - Closed Specialty Diagnoses / Procedures Referred By Contross t Referred To Contact Diagnoses Metastatic melanoma (HCC) Markus Finley MD [address] [place] [address] Phone: tel: fax: [facility] Oncology Services [address] [place] [address] Phone: tel: fax: Referral ID Status Reason Start Date Expiration Date Visits Re quested Visits Authorized [id number] Closed 04/19/2024 1 30 Encounter Details Date Type Department Care Team (Late st Contact Info) Description 08/10/2024 11:00 AM CDT Clinical Support [facility] Oncology Services [address] [place] [address] Markus Finley MD [address] [place] [address] Metastatic melanoma (HCC) (Primary Dx); Acute renal failure, unspecified acute renal failure type (HCC) Discharge Disposition: Discharged to home or Selfcare Social History Tobacco Use Types Packs/Day Years Used Date Smoking Tobacco: Former Cigarettes 0.5 8.5 S tarted: 04/18/2016 Smokeless Tobacco: Never Tobacco Cessation:Counseling Given: Not Answered Alcohol Use Standard Drinks/Week Comments Yes 0 (1 standard drink = 0.6 oz pur e alcohol) [facility] Utilities Answer Date Recorded In the [...] How often do you attend orthodoxy or hoahaoism serv ices? Patient declined 08/01/2024 Do you [...] medical care, and heating? Patient declined 08/01/2024 [employer] of Occupat ional [facility] - Occupational Stress Questionnaire Answer Date [...] st Contact Info) Description 11/15/2024 1:00 PM CATEGORY CONSULTANT Lab [facility] [address] [place] [address] Markus Finley MD [address] [place] [address] 11/15/2024 2:00 PM CATEGORY CONSULTANT Appointment [facility] MRI [address] [place] [address] Markus Finley MD [address] [place] [address] Discharge Disposition: Discharged to home or Selfcare [...] - 12.00 10(3)/mcL 08/10/2024 11:34 AM CDT [facility] RBC 3.93 3.80 - 5.30 10(6)/mcL 08/10/2024 11:34 AM CDT [facility] HEMOGLOBIN (HGB) 11.8(L) 12.0 - 15.8 g/dL 08/10/2024 11:34 AM CDT [facility] HEMATOCRIT (HCT) 34.3(L) 36.0 - 47.0 % 08/10/2024 11:34 AM CDT [facility] MCV 87.3 82.0 - 96.0 fL 08/10/2024 11:34 AM CDT [facility] MCH 30.0 26.0 - 34.0 pg 08/10/2024 11:34 AM CDT [facility] MCHC 34.4 31.0 - 36.0 g/dL 08/10/2024 11:34 AM CDT [facility] PLATELET COUNT 213 140 - 440 10(3)/mcL 08/10/2024 11:34 AM CDT [facility] RDW 14.4 11.8 - 15.5 % 08/10/2024 11:34 AM CDT [facility] MPV 9.3(L) 9.7 - 12.4 fL 08/10/2024 11:34 AM CDT [facility] NEUTROPHILS 90.0(H) 47.0 - 73.0 % 08/10/2024 11:34 AM CDT [facility] LYMPHOCYTES 5.2(L) 18.0 - 42.0 % 08/10/2024 11:34 AM CDT [facility] MONOCYTES 4.7 4.0 - 12.0 % 08/10/2024 11:34 AM CDT [facility] EOSINOPHILS 0.0 0.0 - 5.0 % 08/10/2024 11:34 AM CDT [facility] BASOPHILS 0.1 0.0 - 1.0 % 08/10/2024 11:34 AM CDT [facility] ABSOLUTE NEUTROPHILS 10.39(H) 1.60 - 7.70 10(3)/[facility] 08/10/2024 11:34 AM CDT [facility] ABSOLUTE LYMPHOCYTES 0.60(L) 1.30 - 3.20 10(3)/[facility] 08/10/2024 11:34 AM CDT [facility] ABSOLUTE MONOCYTES 0.54 0.20 - 1.00 10(3)/[facility] 08/10/2024 11:34 AM CDT [facility] ABSOLUTE EOSINOPHIL 0.00 0.00 - 0.40 10(3)/[facility] 08/10/2024 11:34 AM CDT [facility] ABSOLUTE BASOPHILS 0.01 0.00 - 0.10 10(3)/[facility] 08/10/2024 11:34 AM CDT [facility] NRBC PER 100 WBC 0 08/10/20 24 11:34 AM [facility] Blood Sub-Q Port Venou s Access Device (Medi-Port, Implanted Port) / Unknown 08/10/2024 11:20 AM CDT 08/10/2024 11:20 AM CDT us Lee Lan MD HEMATOLOGY ORDERABLES Fi nal Result [facility] [address] [place] [address] * (ABNORMAL) BASIC METABOLIC PANEL W/ CALCIUM TOTAL (08/10/2024 11:20 AM CDT) SODIUM 133(L) 136 - 145 mmol/L 08/10/2024 11:56 AM CDT [facility] POTASSIUM 3.9 3.5 - 5.1 mmol/L 08/10/2024 11:56 AM CDT [facility] CHLORIDE 105 98 - 107 mmol/L 08/10/2024 11:56 AM CDT [facility] CO2, VENOUS 23 22 - 30 mmol/L 08/10/2024 11:56 AM CDT [facility] ANION GAP 8.9 <18.0 mmol/L 08/10/2024 11:56 AM CDT [facility] GLUCOSE 138(H) 70 - 99 mg/dL 08/10/2024 11:56 AM CDT [facility] BUN 15 5 - 18 mg/dL 08/10/2024 11:56 AM CDT [facility] CREATININE, BLOOD 0.86 0.60 - 1.00 mg/dL 08/10/2024 11:56 AM CDT [facility] BUN/CREATININE RATIO 17 12 - 20 ratio 08/10/2024 11:56 AM CDT [facility] CALCIUM 8.9 8.7 - 10.5 mg/dL 08/10/2024 11:56 AM CDT [facility] GFR, ESTIMATED >60 >=60 08/10/2024 11:56 AM CDT [facility] Comment: Creatinine Clearance is the preferred criteria for selecting drug dose adjustments in renally impaired patients. ??The GFR is provided as additional pertinent clinical information. GFR is reported in mL/min/1.73 sq m. Calculation based on the Chronic Kidney Disease Epidemiology Collaboration (CKD- EPI) equation refit without adjustment for race. GFR, EST. >60 >=60 024 11:56 AM CDT [facility] GFR, EST. NONAFRICAN >60 >=60 08/10/2024 11:56 AM CDT [facility] Blood Sub-Q Port Venou s Access Device (Medi-Port, Implanted Port) / Unknown 08/10/2024 11:20 AM CDT 08/10/2024 11:20 AM CDT us Lee Lan MD CHEMISTRY ORDERABLES Fin al Result [facility] #[address] [place] [address] documented in this encounter Visit Diagnoses Diagnosis [...] Units documented in this encounter Care Teams Cable Hooker Relationship Specialty Start Date End Date Pritesh Chu MD [address] [address] PCP - General Family Medicine 04/18/24 Markus Finley MD [address] [place] [address] Consulting Physician Medical Oncology 04/18/24 documented as of this encounter
--- OUTSIDE RECORDS SUMMARY | 2024-10-27 02:46 | XMS_ITS | Encounter Summary ---
Author Organization [facility] Address [address] [place] [address] Phone Care Team Providers Care Radiology Special Procedure Tech Name Role Phone Pritesh Chu MD Primary Care Provider [phone] Markus Finley MD Unavailable [phone] Encounter Details Date Type Department Care Team (Late st Contact Info) Description 08/07/2024 Patient Outreach [facility] Director [employer]id [employer] Management [address] [place], [place] [address] Lucille Lawson RN [place] Social History Tobacco Use Types Packs/Day Years Used Date Smoking Tobacco: Former Cigarettes 0.5 8.5 S tarted: 04/18/2016 Smokeless Tobacco: Never Alcohol Use Standard Drinks/Week Comments Yes 0 (1 standard drink = 0.6 oz pur e alcohol) [facility] Utilities Answer Date Recorded In the past 12 months has [employer], gas, oil, or water company threatened to [...] How often do you attend rastafarian or christian serv ices? Patient declined 08/01/2024 [...] Contact Info) Description 11/15/2024 1:00 PM MANAGER REIMBURSEMENT Lab [facility] [address] [place] [address] Markus Finley MD [address] [place] [address] 11/15/2024 2:00 PM MANAGER REIMBURSEMENT Appointment [facility] [address] [place] [address] Markus Finley MD [address] [place] [address] Discharge Disposition: Discharged to home or Selfcare documented as of this encounter Visit Diagnoses Not on filedocumented in this encounter Care Teams Radiology Special Procedure Tech Relationship Specialty Start Date End Date Pritesh Chu MD [address] [place] [address] PCP - General Family Medicine 04/18/24 Markus Finley MD [address] [place] [address] Consulting Physician Medical Oncology 04/18/24 documented as of this encounter
--- OUTSIDE RECORDS SUMMARY | 2024-10-27 02:46 | XMS_ITS | Encounter Summary ---
Author Organization [facility] Address [address] [facility] [place] [address] Phone Care Team Providers Care Abrasive Grinder Name Role Phone Pritesh Chu MD Primary Care Provider [phone] Markus Finley MD Unavailable [phone] Reason for Referral * Radiology Services (Routine) - Closed Specialty Diagnoses / Procedures Referred By Delbert villareal Referred To Contact Radiology Diagnoses Metastatic melanoma (HCC) Procedures PET CT TUMOR IMAGING WHOLE BODY Markus Finley MD [address] [place] [address] Phone: tel: fax: Referral ID Status Reason Start Date Expiration Date Visits Re quested Visits Authorized [id number] Closed 08/06/2024 1 1 Reason for Visit * Radiology Services (Routine) - Closed Specialty Diagnoses / Procedures Referred By Delbert villareal Referred To Contact Radiology Diagnoses Metastatic melanoma (HCC) Procedures PET CT TUMOR IMAGING WHOLE BODY Markus Finley MD [address] [place] [address] Phone: tel: fax: Referral ID Status Reason Start Date Expiration Date Visits Re quested Visits Authorized [id number] Closed 08/06/2024 1 1 Encounter Details Date Type Department Care Team (Latest Contact Info) Description 08/15/2024 11:35 AM CDT - 08/15/2024 11:59 PM CDT Hospital Encounter [facility] PET [address] [place] [address] Markus Finley MD [address] [place] [address] Discharge Disposition: Discharged to home or Selfcare Social History Tobacco Use Types Packs/Day Years Used Date Smoking Tobacco: Former Cigarettes 0.5 8.5 S tarted: 04/18/2016 Smokeless Tobacco: Never Alcohol Use Standard Drinks/Week Comments Yes 0 (1 standard drink = 0.6 oz pur e alcohol) [facility] Utilities Answer Date Recorded In the past 12 months has [employer], gas, oil, or water [employer] threatened to shut off services in your [...] often do you attend latter day or cheondoism serv ices? Patient declined 08/01/2024 Do you [...] [facility] of Occupat ional [facility] - Occupational Stress Questionnaire Answer Date [...] any time in the past 12 m [facility], were you homeless or [...] IV fluids normal saline daily via port. 01279 mL 08/03/2024 4 sulfamethoxazole- trimethoprim DS (BACTRIM DS, SEPTRA DS) 800-160 MG TabletIndications :Metastatic melanoma (HCC) Take 1 Tablet by mouth 2 times daily for 10 doses. 10 Tablet 08/10/2024 4 documented as of this encounter Plan of Treatment Upcoming Encounters Date Type Department Care Team (Late st Contact Info) Description 11/15/2024 1:00 PM AVIONICS MECHANIC [facility] [address] [place] [address] Markus Finley MD [address] [place] [address] 11/15/2024 2:00 PM AVIONICS MECHANIC [facility] [address] [place] [address] Markus Finley MD [address] [place] [address] Discharge Disposition: Discharged to home or Selfcare [...] AM T: ??08/16/2024 11:30 AM Report ID: [id number] Reading Location: [id number] Procedure Note Zachariah Carrizales MD - 08/16/2024 [...] Zachariah Carrizales M.D. LB: KRUNAL Report ID: [id number] Reading Location: [place] [address] IMPRESSION: Hypermetabolic left inguinal lymph node measuring [...] Dose documented in this encounter Care Teams Abrasive Grinder Relationship Specialty Start Date End Date Pritesh Chu MD [address] [place] [address] PCP - General Family Medicine 04/18/24 Markus Finley MD [address] [place] [address] Consulting Physician Medical Oncology 04/18/24 documented as of this encounter
--- OUTSIDE RECORDS SUMMARY | 2024-10-27 02:46 | XMS_ITS | Encounter Summary ---
Author Organization [employer] Care Team Providers Care Type Proof Reproducer Name Role Phone Pritesh Chu MD Primary Care Provider [phone] Markus Finley MD Unavailable [phone] Encounter Details Date Type Department Care Team (Latest Contact Info) Description 08/15/2024 Travel Social History Tobacco Use Types Packs/Day Years Used Date Smoking Tobacco: Former Cigarettes 0.5 8.5 S tarted: 04/18/2016 Smokeless Tobacco: Never Alcohol Use Standard Drinks/Week Comments Yes 0 (1 standard drink = 0.6 oz pur e alcohol) [facility] Utilities Answer Date Recorded In the past 12 months has [employer], gas, oil, or water [employer] threatened to shut off services in your home? Patient declined 08/01/2024 Social Connection and Isolation Panel [NHANES] A nswer Date Recorded In a typical week, how many times do you talk on the phone with family, friends, or neighbors? Patient declined 08/01/2024 How often do you get togethe r with friends or relatives? Patient declined 08/01/2024 How often do you attend yarsanism or baptism serv ices? Patient declined 08/01/2024 [...] and heating? Patient declined 08/01/2024 [facility] of Occupat ional [facility] - Occupational Stress Questionnaire Answer Date [...] st Contact Info) Description 11/15/2024 1:00 PM WINCH OPERATOR Lab [facility] Services [address] [place] [address] Markus Finley MD [address] [place] [address] 11/15/2024 2:00 PM WINCH OPERATOR Appointment [facility] MRI [address] [place] [address] Markus Finley MD [address] [place] [address] Discharge Disposition: Discharged to home or Selfcare documented as of this encounter Visit Diagnoses Not on filedocumented in this encounter Care Teams Type Proof Reproducer Relationship Specialty Start Date End Date Pritesh Chu MD [address] [place] [address] PCP - General Family Medicine 04/18/24 Markus Finley MD [address] [place] [address] Consulting Physician Medical Oncology 04/18/24 documented as of this encounter
--- OUTSIDE RECORDS SUMMARY | 2024-10-27 02:46 | XMS_ITS | Encounter Summary ---
Author Organization [facility] Address [address] [facility] [address] Phone Care Team Providers Care Shelter Advocate Name Role Phone Pritesh Chu MD Primary Care Provider [phone] Markus Finley MD Unavailable [phone] Encounter Details Date Type Department Care Team (Late st Contact Info) Description 08/14/2024 Telephone [facility] Oncology Services [address] [place] [id number] Markus Finley MD [address] [place] [address] Social History Tobacco Use Types Packs/Day Years Used Date Smoking Tobacco: Former Cigarettes 0.5 8.5 S tarted: 04/18/2016 Smokeless Tobacco: Never Alcohol Use Standard Drinks/Week Comments Yes 0 (1 standard drink = 0.6 oz pur e alcohol) [facility] Utilities Answer Date Recorded In the past [...] declined 08/01/2024 How often do you attend yazidi or muslim serv ices? Patient declined 08/01/2024 Do you [...] packets. Prescriptions for both medications sent to [facility] documented in this encounter Plan of Treatment Upcoming Encounters Date Type Department Care Team (Late st Contact Info) Description 11/15/2024 1:00 PM WATER QUALITY SPECIALIST Lab [facility] Services [address] [place] [address] Markus Finley MD [address] [place] [address] 11/15/2024 2:00 PM WATER QUALITY SPECIALIST Appointment [facility] [address] [place] [address] Markus Finley MD [address] [place] [address] Discharge Disposition: Discharged to home or Selfcare documented as of this encounter Visit Diagnoses Not on filedocumented in this encounter Care Teams Shelter Advocate Relationship Specialty Start Date End Date Pritesh Chu MD [address] [place] [address] PCP - General Family Medicine 04/18/24 Markus Finley MD [address] [place] [address] Consulting Physician Medical Oncology 04/18/24 documented as of this encounter
--- OUTSIDE RECORDS SUMMARY | 2024-10-27 02:46 | XMS_ITS | Encounter Summary ---
Author Organization [employer] Care Team Providers Care Tallier Name Role Phone Pritesh Chu MD Primary Care Provider [phone] Markus Finley MD Unavailable [phone] Encounter Details Date Type Department Care Team (Latest Contact Info) Description 08/10/2024 Travel Social History Tobacco Use Types Packs/Day Years Used Date Smoking Tobacco: Former Cigarettes 0.5 8.5 S tarted: 04/18/2016 Smokeless Tobacco: Never Alcohol Use Standard Drinks/Week Comments Yes 0 (1 standard drink = 0.6 oz pur e alcohol) [facility] Utilities Answer Date Recorded In the past 12 months has [employer], gas, oil, or water [employer] threatened to shut off services in your home? Patient declined 08/01/2024 Social Connection and Isolation Panel [NHANES] A nswer Date Recorded In a typical week, how many times do you talk on the phone with family, friends, or neighbors? Patient declined 08/01/2024 How often do you get togethe r with friends or relatives? Patient declined 08/01/2024 How often do you attend samaritan or christianity serv ices? Patient declined 08/01/2024 [...] medical care, and heating? Patient declined 08/01/2024 [facility] of Occupat ional [facility] - Occupational Stress Questionnaire Answer Date [...] the past 12 m [facility], were you homeless or living [...] st Contact Info) Description 11/15/2024 1:00 PM WIRE STRANDER Lab [facility] [address] [place] [address] Markus Finley MD [address] [place] [address] 11/15/2024 2:00 PM WIRE STRANDER [facility]ointment [facility] [address] [place] [address] Markus Finley MD [address] [place] [address] Discharge Disposition: Discharged to home or Selfcare documented as of this encounter Visit Diagnoses Not on filedocumented in this encounter Care Teams Tallier Relationship Specialty Start Date End Date Pritesh Chu MD [address] [place] [address] PCP - General Family Medicine 04/18/24 Markus Finley MD [address] [place] [address] Consulting Physician Medical Oncology 04/18/24 documented as of this encounter
--- OUTSIDE RECORDS SUMMARY | 2024-10-27 02:46 | XMS_ITS | Encounter Summary ---
Author Organization [facility] Address [address] [place] [address] Phone Care Team Providers Care Physiatrist Name Role Phone Pritesh Chu MD Primary Care Provider [phone] Markus Finley MD Unavailable [phone] Reason for Visit * Episode Based Medications (Routine) - Closed Specialty Diagnoses / Procedures Referred By Contross t Referred To Contact Diagnoses Metastatic melanoma (HCC) Markus Finley MD [address] [place] [address] Phone: tel: fax: [facility] Oncology Services [address] [place] [address] Phone: tel: fax: Referral ID Status Reason Start Date Expiration Date Visits Re quested Visits Authorized [id number] Closed 04/19/2024 1 30 Encounter Details Date Type Department Care Team (Late st Contact Info) Description 08/08/2024 11:30 AM CDT Clinical Support [facility] Oncology Services [address] [place] [address] Markus Finley MD [address] [place] [address] Metastatic melanoma (HCC) Discharge Disposition: Discharged to home or Selfcare Social History Tobacco Use Types Packs/Day Years Used Date Smoking Tobacco: Former Cigarettes 0.5 8.5 S tarted: 04/18/2016 Smokeless Tobacco: Never Alcohol Use Standard Drinks/Week Comments Yes 0 (1 standard drink = 0.6 oz pur e alcohol) [facility] Utilities Answer Date [...] declined 08/01/2024 How often do you attend mormon or nondenominational serv ices? Patient declined 08/01/2024 Do you [...] care, and heating? Patient declined 08/01/2024 [facility] [place] of Occupat ional Health - Occupational Stress [...] Info) Description 11/15/2024 1:00 PM EARLY CHILDHOOD SPECIALIST Lab [facility] [address] [place] [address] Markus Finley MD [address] [place] [address] 11/15/2024 2:00 PM EARLY CHILDHOOD SPECIALIST [facility]ointment [facility] [address] [place] [address] Markus Finley MD [address] [place] [address] Discharge Disposition: Discharged to home or Selfcare documented as of this encounter Procedures Procedure Name Priority Date/Time Associated Diagnosis Comments CMP (COMPREHENSIVE METABOLIC PANEL) STAT 08/08/2024 12:00 PM CDT Metastatic melanoma (HCC) documented in this encounter Results * (ABNORMAL) CMP (COMPREHENSIVE METABOLIC PANEL) (08/08/2024 12:00 PM CDT) SODIUM 133(L) 136 - 145 mmol/L 08/08/2024 12:40 PM CDT [facility] POTASSIUM 3.6 3.5 - 5.1 mmol/L 08/08/2024 12:40 PM CDT [facility] CHLORIDE 108(H) 98 - 107 mmol/L 08/08/2024 12:40 PM CDT [facility] CO2, VENOUS 20(L) 22 - 30 mmol/L 08/08/2024 12:40 PM CDT [facility] ANION GAP 8.6 <18.0 mmol/L 08/08/2024 12:40 PM CDT [facility] GLUCOSE 143(H) 70 - 99 mg/dL 08/08/2024 12:40 PM CDT [facility] BUN 12 5 - 18 mg/dL 08/08/2024 12:40 PM CDT [facility] CREATININE, BLOOD 1.00 0.60 - 1.00 mg/dL 08/08/2024 12:40 PM CDT [facility] BUN/CREATININE RATIO 12 12 - 20 ratio 08/08/2024 12:40 PM CDT [facility] TOTAL PROTEIN 6.0(L) 6.3 - 8.2 g/dL 08/08/2024 12:40 PM CDT [facility] ALBUMIN 3.4(L) 3.5 - 5.0 g/dL 08/08/2024 12:40 PM CDT [facility] A/G RATIO 1.3 1.0 - 2.2 08/08/2024 12:40 PM CDT [facility] CALCIUM 8.8 8.7 - 10.5 mg/dL 08/08/2024 12:40 PM CDT [facility] T BILI 0.5 0.2 - 1.2 mg/dL 08/08/2024 12:40 PM CDT [facility] SGOT (AST) 15 5 - 34 U/L 08/08/2024 12:40 PM CDT [facility] SGPT (ALT) 58(H) 0 - 55 U/L 08/08/2024 12:40 PM CDT [facility] ALKALINE PHOSPHATASE 71 40 - 150 U/L 08/08/2024 12:40 PM CDT [facility] IS THE PATIENT REQUIRED TO BE FASTING? No 08/08/2024 12:40 PM CDT [facility] GFR, ESTIMATED >60 >=60 08/08/2024 12:40 PM CDT [facility] Comment: Creatinine Clearance is the preferred criteria for selecting drug dose adjustments in renally impaired patients. ??The GFR is provided as additional pertinent clinical information. GFR is reported in mL/min/1.73 sq m. Calculation based on the Chronic Kidney Disease Epidemiology Collaboration (CKD- EPI) equation refit without adjustment for race. GFR, EST. >60 >=60 024 12:40 PM CDT [facility] GFR, EST. NONAFRICAN >60 >=60 08/08/2024 12:40 PM CDT [facility] Blood Sub-Q Port Venou s Access Device (Medi-Port, Implanted Port) / Unknown 08/08/2024 12:00 PM CDT 08/08/2024 12:00 PM CDT us Markus Finley MD CHEMISTRY ORDERABLES Fin al Result [facility] [place] [address] documented in this encounter Visit Diagnoses Diagnosis [...] mL/hr documented in this encounter Care Teams Physiatrist Relationship Specialty Start Date End Date Pritesh Chu MD [address] [address] PCP - General Family Medicine 04/18/24 Markus Finley MD [address] [place] [address] Consulting Physician Medical Oncology 04/18/24 documented as of this encounter
--- OUTSIDE RECORDS SUMMARY | 2024-10-27 02:47 | XMS_ITS | Encounter Summary ---
Author Organization [facility] Address [address] [place] [address] Phone Care Team Providers Care Local Delivery Truck Driver Name Role Phone Kellen Chu MD Primary Care Provider [phone] Markus Finley MD Unavailable [phone] Reason for Visit * Reason Comments Abnormal Study/Test Result * Auth/Cert (Routine) Specialty Diagnoses / Procedures Referred By Contac t Referred To Contact Diagnoses Hypokalemia ALEXX (acute kidney injury) ([facility]) Ranjan Stuart MD [address] [place] [address] Phone: tel: fax: Referral ID Status Reason Start Date Expiration Date Visits Re quested Visits Authorized [id number] 1 1 Encounter Details Date Type Department Care Team (Latest Contact Info) Description 07/25/2024 11:42 AM CDT - 07/30/2024 3:39 PM CDT Hospital Encounter [facility] Med Surg [address] [place] [address] Gael Morales MD [address] [place] [address] Ranjan Stuart MD [address] [place] [address] Brayan Petty MD [address] [place] [address] ALEXX (acute kidney injury) ([facility]) Discharge Disposition: Discharged to home or Selfcare Social History Tobacco Use Types Packs/Day Years Used Date Smoking Tobacco: Former Cigarettes 0.5 8.5 S tarted: 04/18/2016 Smokeless Tobacco: Never Alcohol Use Standard Drinks/Week Comments Yes 0 (1 standard drink = 0.6 oz pur e alcohol) [facility] Utilities Answer Date Recorded In the past [...] declined 07/25/2024 How often do you attend hinduism or hinduism serv ices? Patient declined 07/25/2024 Do you [...] medical care, and heating? Patient declined 07/25/2024 [place] [employer] - Occupational Stress [...] in a chcf (including now)? Patient declined 07/25/2024 Comments No [...] Admitting Diagnoses: As above HOSPITAL COURSE: Erwin Hiltno was admitted 07/25/2024 with ALEXX (acute kidney [...] oncologist as previously scheduled for 08/01/2024, andwith recruiter specialist in 2 weeks. Exam Day of Discharge: [...] HGBA1C 5.5 07/24/2024 No results found for: [id number] No results found for: CPK , CPKI , CKMB , CKMBNI , CKMBPOCT , CKMBRELINDX , TROPONINI , POCTRP No results found for: FERRITIN No results found for: FOLATE No results found for: PHARTERIAL , PO2ART , SWV2VTO , CO2ART , O2ART Lab Results Component [...] 1st line. potassium chloride SA 20 MEQ [id number] Commonly known as: KLORCON M Take 2 [...] very much for allowing the [facility] Adult Hospitalist Service to participate in the [...] PCP in 1 week Follow up with recruiter specialist in 2 weeks Follow-up with oncologist as [...] PREDNISONE THERAPY WILL BE COORDINATED BY PATIENT'S TERRITORY MANAGER/ONCOLOGIST, documented in this encounter Medications at Time [...] 07/30/2024 10:19 AM CDT Nephrology Progress Note [facility] ASSESSMENT: ALEXX-Probably Prerenal and Immunotherapy [...] the care of your patient. Sincerely, Urbano Quiñoenz M.D 10:19 AM CDT 07/30/2024 * Brayan Petty MD - 07/29/2024 8:42 PM CDT [facility]IENT DAILY PROGRESS NOTE Erwin Hilton is [...] results found for: PHARTERIAL , PO2ART , [id number] , CO2ART , O2ART Lab Results Component [...] LACTICA 1.3 07/23/2024 No results found for: [id number] No results found for: FERRITIN No results found for: GLUCOSEPOCT EKG: EKG 12 LEAD Result Date: 07/24/[address] & T wave abnormality, consider lateral ischemia Abnormal ECG No previous ECGs available Confirmed by Emily Hall ([id number]) on 07/24/2024 9:19:48 AM Imaging: No results found. By: Brayan Petty MD, 07/29/2024 8:42 PM CDT * Urbano Quiñonez MD - 07/29/2024 8:23 AM CDT Nephrology Progress Note [facility] ASSESSMENT: ALEXX-Probably Prerenal and Immunotherapy [...] MD - 07/28/2024 3:33 PM CDT [facility] PROGRESS NOTE Erwin Hilton is [...] results found for: PHARTERIAL , PO2ART , [id number] , CO2ART , O2ART Lab Results Component [...] LACTICA 1.3 07/23/2024 No results found for: [id number] No results found for: FERRITIN No results found for: GLUCOSEPOCT EKG: EKG 12 LEAD Result Date: 07/24/[address] & T wave abnormality, consider lateral ischemia Abnormal ECG No previous ECGs available Confirmed by Emily Hall ([id number]) on 07/24/2024 9:19:48 AM Imaging: No results found. By: Brayan Petty MD, 07/28/2024 3:33 PM CDT * Brayan Petty MD - 07/27/2024 11:00 PM CDT [facility] DA[facility] PROGRESS NOTE Erwin Hilton is [...] results found for: PHARTERIAL , PO2ART , [id number] , CO2ART , O2ART Lab Results Component [...] LACTICA 1.3 07/23/2024 No results found for: [id number] No results found for: FERRITIN No results found for: GLUCOSEPOCT EKG: EKG 12 LEAD Result Date: 07/24/[address] & T wave abnormality, consider lateral ischemia Abnormal ECG No previous ECGs available Confirmed by Emily Hall ([id number]) on 07/24/2024 9:19:48 AM Imaging: US RENAL COMPLETE Result Date: 07/27/2024 IMPRESSION: Normal kidneys. Debris within the bladder. Correlate with urinalysis. By: Brayan Petty MD, 07/27/2024 11:00 PM CDT * Brayan Petty MD - 07/27/2024 11:09 AM CDT Request for Documentation Clarification [facility] Erwin Hilton ; VISIT [id number] Query Response Sent: 07/27/24 11:09 CDT From: [...] fatty liver disease, depression, who presented to [facility] with complaints of persistent dehydration. [...] PAINTER ERWIN Brand Cecile 2000 Patient ID ([facility] [[email or web address] [id number] Indications: Pericardial effusion. Study Date07/26/2024 Technical quality: [...] lbs. BMI (BSA) 41.58 kg/m^2 (2.23 m^2) Manager Bank Bayron Bruno R Room 241 Interpreting Valencia [...] MD - 07/26/2024 4:13 PM CDT [facility] INPATIENT DAILY PROGRESS NOTE Erwin Hilton [...] results found for: PHARTERIAL , PO2ART , [id number] , CO2ART , O2ART Lab Results Component [...] previous ECGs available Confirmed by Emily Hall ([id number]) on 07/24/2024 9:19:48 AM Imaging: No results [...] this encounter H&P Notes * Esteban Mcgovern, SCIENCE INTERPRETER, PCA ASSISTED LIVING - 07/25/2024 5:55 PM CDT [facility] ADMISSION HISTORY & PHYSICAL HPI: Erwin Hilton is a 24 y.o. female who is known to me from previous admission with a history of melanoma to her left foot status post surgery with skin graft and is and undergoing immunotherapy with oncologist Dr. Finley, history of depression, non alcoholic fatty liver disease, depression, who presented to [facility] with complaints of persistent dehydration. Patient was recently hospitalized [facility] from. 07/23-07/24 from nausea vomiting diarrhea causing [...] results found for: PHARTERIAL , PO2ART , [id number] , CO2ART , O2ART No results found [...] with patient and/or family and/or Power of Roving Weight Gauger approximately 16 minutes. Discussed CPR/Intubation/Treatment Goals/Quality of [...] patient and discussed the patient's management with VETERINARY LIVESTOCK INSPECTOR Esteban Mcgovern. I agree with the history, physical, assessment, and plan as outlined in the attached note. Based on the clinical evolution, we may be able to discharge her today or tomorrow. Ranjan Stuart MD 07/26/2024 11:11 AM CDT documented in this encounter Consult Notes * Urbano Quiñonez MD - 07/28/2024 8:13 AM CDTAssociated Order(s): IP CONSULT TO NEPHROLOGY Nephrology Consult [facility] Reason for Consult: @NEPHROCONSULTREASON@ Requesting [...] 8:13 AM CDT 07/28/2024 * Marion Ch, SCIENCE INTERPRETER, PCA ASSISTED LIVING - 07/26/2024 12:31 PM CDTAssociated Order(s): IP [...] liver disease, depression who presented to [facility] with complaints of persistent dehydration, episodes of [...] Session: Patient declined Stress: Patient Declined (07/25/2024) [place] [employer] - Occupational Stress Questionnaire Feeling of Stress : Patient declined Recent Concern: Stress - Stress Concern Present (06/27/2024) [place] [employer] - Occupational Stress Questionnaire Feeling of Stress : To some extent Social Integration: Patient Declined (07/25/2024) Social Connection and Isolation Panel [NHANES] Frequency of Communication with Friends and Family: Patient declined Frequency of Social Gatherings with Friends and Family: Patient declined Attends [employer] Services: Patient declined Active Member of Clubs [...] More than three times a week Attends [employer] Services: Never Active Member of Clubs or [...] Session: Patient declined Stress: Patient Declined (07/23/2024) [place] [employer] - Occupational Stress Questionnaire Feeling of Stress : Patient declined Recent Concern: Stress - Stress Concern Present (06/27/2024) [place] [employer] - Occupational Stress Questionnaire Feeling of Stress : To some extent Social Integration: Patient Declined (07/23/2024) Social Connection and Isolation Panel [NHANES] Frequency of Communication with Friends and Family: Patient declined Frequency of Social Gatherings with Friends and Family: Patient declined Attends [employer] Services: Patient declined Active Member of Clubs [...] More than three times a week Attends [employer] Services: Never Active Member of Clubs or [...] ED Physician in the absence of a teenage babysitter: yes Interpretation: Interpretation: abnormal Rate: ECG rate: [...] technique for this examination. COMPARISON: 06/27/2024 from [facility]. PET-CT 04/03/2024. FINDINGS: The sensitivity for detection [...] Flora Hernandez M.D. TW: JENNY Report ID: [id number] Reading Location: [place] [address] Medical Decision Making Impression: Patient presents with [...] Nell Abraham - 07/30/2024 1:32 PM CDT Sales Support Administrator - Transition Arrangements Coordinated Note - Transition Specialists do not coordinate all transitions or aspects of transitions- CONFIRM PATIENT READINESS WITH OFFENDER JOB RETENTION SPECIALIST PRIOR TO DISCHARGE Warehouse Stock Clerk notified: yes, notified Rama at the following [...] Nell Abraham - 07/30/2024 1:31 PM CDT Sales Support Administrator Coordination Note SUMMARY - Sales Support Administrator currently working the potential transition plan(s): 07/29/2024 @ 12:42 PM CDT ([facility], [facility]) Follow Up Appointment (See detail within the referral type(s) below for information on what is needed to complete coordination Note - the Transition Specialists do not coordinate all transition types - please direct all question regarding hospital transition to the Warehouse Stock Clerk) Readmission risk level (if calculated) is: 3-Medium [...] Discharge Plan Notification/ Verification Patient's Phone numbers: [phone] (home) Patient's preferred discharge phone number for follow up appointments, etc: (if different from above): N/A Information for bedside nurse to call report and fax PACT Document in Sticky Note?: Not applicable - no external home care agencies or hemodialysis Nursing notified: YES Anil GIRALDO via [employer] chat Decision Maker / Caregiver Information Decision Maker: Patient is assumed to be the medical decision maker Cosmetics Presser/Certified Performance Technologist Name: Lyndsaytiana Hesster Patient/ Decision Maker and [...] Luz Cruz - 07/29/2024 12:42 PM CDT Sales Support Administrator Coordination Note SUMMARY - Sales Support Administrator currently working the potential transition plan(s): 07/29/2024 @ 12:42 PM CDT (, TS) Follow Up Appointment (See detail within the referral type(s) below for information on what is needed to complete coordination Note - the Transition Specialists do not coordinate all transition types - please direct all question regarding hospital transition to the Warehouse Stock Clerk) Readmission risk level (if calculated) is: 3-Medium High Primary Care Provider: PCP: KELLEN CHU MD Primary Medical Coverage: [employer] Secondary Medical Coverage: N/A Hospital Follow-Up appointment(s) scheduling status: Appointment to be made closer to discharge * Interdisciplinary - Kaycee Galarza RN - 07/29/2024 10:37 AM CDT I agree with Savanna Andres [facility] Student RN charted assessments. * [...] PM CDT Case Management Patient / Patient Supervisor Nuclear Medicine Contact Note Erwin Perez 's readmission risk level (if calculated) is: 2-Medium Low Patient Class: Inpatient Consecutive Inpatient Midnights 1 Actual day(s) of hospital stay (compare to working DRG):2 New Consult for Case Management? No Summary: Decision Maker: Patient is assumed to be the medical decision maker Cosmetics Presser/Certified Performance Technologist Name: Lyndsay Hilton Met with Erwin Perez [...] (compare to working DRG): 1 Reason for Warehouse Stock ClerkCall Taker: Re-hospitalization Erwin Perez is in the hospital [...] usedurable medical equipment at home. She uses [facility] in [facility] to obtain her medications. She has not faced any financial barriers to obtaining her medications. She stated that she remembersto take her medications. She is able to transport herself or her family does if needed. She is established with Kellen Chu as PCP. She has [facility]. She has not completed a HCPOA or [...] Anticipated Discharge Plan: Home 07/26/24 Patient/ patient claim representative's preferences regarding the discharge plan: Home with out services Family/ Caregiver's readiness, willingness and ability to support patient with anticipated community discharge plan: Did not speak with family/caregiver during this contact. SUMMARY (summary of interaction with patient/decision maker, family and interdisciplinary team) Decision Maker: Patient is assumed to be the medical decision maker Cosmetics Presser/Certified Performance Technologist Name: Lyndsay Hilton By phone, spoke with [...] Outcome: Ongoing (see interventions/notes) Flowsheets (Taken 07/26/2024 9093) Plan of Care Reviewed With: patient Progress: [...] Mutually Develop Transition Plan Flowsheets (Taken 07/25/2024 1651) Current Outpatient/Agency/Support Group: infusion therapy, outpatient Patient/Family Anticipated Services at Transition: outpatient care Patient/Family Anticipates Transition to: home Problem: Electrolyte Imbalance Goal: Electrolyte Balance Outcome: Ongoing (see interventions/notes) Intervention: Monitor and Manage Electrolyte Imbalance Flowsheets (Taken 07/25/2024 1650) Fluid/Electrolyte Management: electrolyte supplement initiated intravenous fluid [...] st Contact Info) Description 11/15/2024 1:00 PM J2EE ARCHITECT Lab [facility] [address] [place] [address] Markus Finley MD [address] [place] [address] 11/15/2024 2:00 PM J2EE ARCHITECT [facility]ointment [facility] [address] [place] [address] Markus Finley MD [address] [place] [address] Discharge Disposition: Discharged to home or Selfcare [...] resultswithin the time period is included. Pathologist [facility] WBC 6.42 4.00 - 12.00 10(3)/mcL 07/30/2024 6:02 AM CDT [facility] RBC 3.97 3.80 - 5.30 10(6)/mcL 07/30/2024 6:02 AM CDT [facility] HEMOGLOBIN (HGB) 11.7(L) 12.0 - 15.8 g/dL 07/30/2024 6:02 AM CDT [facility] HEMATOCRIT (HCT) 34.8(L) 36.0 - 47.0 % 07/30/2024 6:02 AM CDT [facility] MCV 87.7 82.0 - 96.0 fL 07/30/2024 6:02 AM CDT [facility] MCH 29.5 26.0 - 34.0 pg 07/30/2024 6:02 AM T [facility] MCHC 33.6 31.0 - 36.0 g/dL 07/30/2024 6:02 AM [facility] PLATELET COUNT 269 140 - 440 10(3)/[facility] 07/30/2024 6:02 AM T [facility] RDW 13.9 11.8 - 15.5 % 07/30/2024 6:02 AM [facility] MPV 11.0 9.7 - 12.4 fL 07/30/2024 6:02 AM [facility] NEUTROPHILS 85.4(H) 47.0 - 73.0 % 07/30/2024 6:02 AM [facility] LYMPHOCYTES 10.6(L) 18.0 - 42.0 % 07/30/2024 6:02 AM CDT [facility] MONOCYTES 3.7(L) 4.0 - 12.0 % 07/[facility]24 [facility] EOSIN[facility] 0.0 0.0 - 5.0 % 07/30/2024 6:02 AM [facility] BASOPHILS 0.3 0.0 - 1.0 % 07/30/2024 6:02 AM CDT [facility] ABSOLUTE NEUTROPHILS 5.48 1.60 - 7.70 10(3)/mcL 07/30/2024 6:02 AM CDT [facility] ABSOLUTE LYMPHOCYTES 0.68(L) 1.30 - 3.20 10(3)/[facility] 07/30/2024 6:02 AM CDT [facility] ABSOLUTE MONOCYTES 0.24 0.20 - 1.00 10(3)/[facility] 07/30/2024 6:02 AM CDT [facility] ABSOLUTE EOSINOPHIL 0.00 0.00 - 0.40 10(3)/[facility] 07/30/2024 6:02 AM CDT [facility] ABSOLUTE BASOPHILS 0.02 0.00 - 0.10 10(3)/[facility] 07/30/2024 6:02 AM CDT [facility] NRBC PER 100 WBC 0 07/30/20 6:02 AM CDT [facility] Blood Venipuncture / Unknown 07/30/2024 4:23 AM CDT 07/30/2024 5:22 AM CDT us Debo Keenan SCIENCE INTERPRETER, PCA ASSISTED LIVING HEMATOLOGY ORDERABLES Final Result [facility] [address] [place] [address] * (ABNORMAL) Basic Metabolic Panel w/ Calcium Total (07/30/2024 4:23 AM CDT) Only the most recent of10 resultswithin the time period is included. SODIUM 133(L) 136 - 145 mmol/L 07/30/2024 5:53 AM CDT [facility] POTASSIUM 3.5 3.5 - 5.1 mmol/L 07/30/2024 5:53 AM CDT [facility] CHLORIDE 96(L) 98 - 107 mmol/L 07/30/2024 5:53 AM CDT [facility] CO2, VENOUS 27 22 - 30 mmol/L 07/30/2024 5:53 AM CDT [facility] ANION GAP 13.5 <18.0 mmol/L 07/30/2024 5:53 AM CDT [facility] GLUCOSE 132(H) 70 - 99 mg/dL 07/30/2024 5:53 AM CDT [facility] BUN 15 5 - 18 mg/dL 07/30/2024 5:53 AM CDT [facility] CREATININE, BLOOD 1.24(H) 0.60 - 1.00 mg/dL 07/30/2024 5:53 AM CDT [facility] BUN/CREATININE RATIO 12 12 - 20 ratio 07/30/2024 5:53 AM CDT [facility] CALCIUM 9.2 8.7 - 10.5 mg/dL 07/30/2024 5:53 AM CDT [facility] GFR, ESTIMATED >60 >=60 07/30/2024 5:53 AM CDT [facility] Comment: Creatinine Clearance is the preferred criteria for selecting drug dose adjustments in renally impaired patients. ??The GFR is provided as additional pertinent clinical information. GFR is reported in mL/min/1.73 sq m. Calculation based on the Chronic Kidney Disease Epidemiology Collaboration (CKD- EPI) equation refit without adjustment for race. GFR, EST. >60 >=60 024 5:53 AM CDT [facility] GFR, EST. NONAFRICAN 53(L) >=60 07/30/2024 5:53 AM CDT [facility] Blood Venipuncture / Unknown 07/30/2024 4:23 AM CDT 07/30/2024 5:22 AM CDT us Debo Keenan SCIENCE INTERPRETER, PCA ASSISTED LIVING CHEMISTRY ORDERABLES Final Result [facility] [address] [place] [address] * RHYTHM STRIP (07/30/2024 12:00 AM CDT) Only the most recent of18 resultswithin the time period is included. 07/30/2024 us Provider Scan IMG ECG ORDERABLES Final Result RESULTING AGENCY * ANA BASURTO RACHID HEPARIN/SST TOP TUBE (07/29/2024 4:30 AM CDT) Blood No Phlebotomy Charged / Unknown 07/29/2024 4:30 AM CDT 07/29/2024 2:56 PM CDT Brayan Kang MD HEMATOLOGY ORDERABLES Final R esult [facility] [address] [place] [address], * Hepatitis Panel Acute (AHP) (07/29/2024 4:30 AM CDT) HEPATITIS A IGM ANTIBODY NON DETECTED NON DETECTED 07/29/2024 3:37 PM CDT [facility] Comment: IGM Antibodies to HAV not detected. ??Does not exclude early acute or recovered HAV infection. HEP B CORE AB (IGM) NON DETECTED NON DETECTED 07/29/2024 3:37 PM CDT [facility] Comment:IGM anti-HBC not det ected. Does not exclude the possibility of exposure to or infection with HBV. HEPATITIS B SURFACE ANTIGEN NON DETECTED NON DETECTED 07/29/2024 3:37 PM CDT [facility] Comment:A nonreactive test r esult [...] 0.17 <1 S/CO 07/29/2024 3:37 PM CDT [facility] Comment: Signal/Cutoff ratio ??< 0.79 is Nondetected Signal/Cutoff ratio 0.80-0.99 is Grayzone Signal/Cutoff ratio > 0.99 is Detected Supplemental assays are recommended if signal/cutoff ratio is >/=1.00. ??Signal/cutoff ratio result >/= 5.00 is 97% predictive of positivity for recombinant immunoblot assay (RIBA) and will be reported to the [place] Department of Public Health as required. Blood Venipuncture / Unknown 07/29/2024 4:30 AM CDT 07/29/2024 5:15 AM CDT Urbano Quiñonez MD HEMATOLOGY ORDERABLES Final Result Performing Organization Address City/[facility]/ZIP Co de Phone Number [facility] [address] [place] [address], [place] * C3 Complement Globulin B-1C (07/29/2024 4:30 AM CDT) C3 COMPLEMENT 133 83 - 193 mg/dL 07/29/2024 3:18 PM CDT [facility] Blood Venipuncture / Unknown 07/29/2024 4:30 AM CDT 07/29/2024 5:15 AM CDT Urbano Quiñonez MD CHEMISTRY ORDERABLES Final Result Performing Organization Address [facility]/ZIP Co de Phone Number [facility] [address] [place] [address], [place] * C4 Complement (07/29/2024 4:30 AM CDT) C4 COMPLEMENT 23 15 - 57 mg/dL 07/29/2024 3:18 PM CDT [facility] Blood Venipuncture / Unknown 07/29/2024 4:30 AM CDT 07/29/2024 5:15 AM CDT Urbano Quiñonez MD CHEMISTRY ORDERABLES Final Result Performing Organization Address City/[facility]/ZIP Co de Phone Number [facility] [address] [place] [address], [place] * ANCA MPO PR3 (07/28/2024 10:15 AM CDT) PROTEINASE 3 AB <0.2 <1.0 AI 12:48 PM CDT [facility] MYELOPEROXIDASE AB <0.2 <1.0 AI 2023 12:48 PM CDT [facility] Blood Venipuncture / Unknown 07/28/2024 10:15 AM CDT 07/28/2024 12:09 PM CDT us Urbano Quiñonez MD IMMUNOLOGY ORDERABLES Final Result Performing Organization Address City/State/[facility] Co de Phone Number [facility] [address] [place] [address], * ANCA IFA SCREEN (07/28/2024 10:15 AM CDT) ANCA IFA SCREEN <1:20 <1:20 titer 07/30/20 24 12:14 PM CDT [facility] Comment: Expected result is < 1:10. ANCA TITER Not Applicable <1:20, Not Applicable titer 07/30/2024 12:14 PM CDT [facility] ANCA PATTERN Not Applicable 07/30/2024 12:14 PM CDT [facility] Comment: Antineutrophil cytoplasmic antibodies (ANCA) [...] IMMUNOLOGY ORDERABLES Final Result Performing Organization Address City/[facility]/ZIP Co de Phone Number [facility] [address] [place] [address], [place] * GLOMERULAR BASEMENT MEMBRANE AB, IGG (07/28/2024 10:15 AM CDT) GLOMERULAR BASEMENT MEMBRANE (GBM) <0.2 <1.0 AI 08/07/2024 12:48 PM CDT [facility] Blood Venipuncture / Unknown 07/28/2024 10:15 AM CDT 07/28/2024 12:09 PM CDT Narrative [facility] - 08/07/2024 12:48 PM CDT Antibody testing was performed by multiplex flow immunoassay on the [employer] platform. Urbano Quiñonez MD IMMUNOLOGY ORDERABLES Final Result Performing Organization Address City/[facility] Co de Phone Number [facility] [address] [place] [address], [place] * Hepatitis C Antibody (07/28/2024 10:15 AM CDT) hepatitis C antibody 0.18 <1 S/CO 07/28/2024 10:27 PM CDT [facility] Comment: Signal/Cutoff ratio ??< 0.79 is Nondetected Signal/Cutoff ratio 0.80-0.99 is Grayzone Signal/Cutoff ratio > 0.99 is Detected Supplemental assays are recommended if signal/cutoff ratio is >/=1.00. ??Signal/cutoff ratio result >/= 5.00 is 97% predictive of positivity for recombinant immunoblot assay (RIBA) and will be reported to the [place] Department [facility] Public [facility] as required. Blood Venipuncture / Unknown 07/28/2024 10:15 AM CDT 07/28/2024 12:09 PM CDT Urbano Quiñonez MD CHEMISTRY ORDERABLES Final Result Performing Organization Address [facility] Co de Phone Number [facility] [address] [place] [address], [place] * Antinuclear Antibody (BARRETT), Titer If Pos (07/28/2024 10:15 AM CDT) BARRETT SCREEN Negative Negative titer 07/30/2024 11:28 AM CDT [facility] Comment: Antinuclear autoantibodies not detected by IFA at a 1:80 screening dilution of HEp-2 cells. BARRETT TITER Not Applicable Negative, See comment, Not Applicable titer 07/30/2024 11:28 AM CDT [facility] Comment: Antinuclear autoantibodies not detected by IFA at a 1:80 screening dilution of HEp-2 cells. BARRETT PATTERN NOT APPLICABLE 07/30/2024 11:28 AM CDT [facility] Blood Venipuncture / Unknown 07/28/2024 10:15 AM CDT 07/28/2024 12:09 PM CDT Urbano Quiñonez MD IMMUNOLOGY ORDERABLES Final Result Performing Organization Address [facility] Co de Phone Number [facility] [address] [place] [address], [place] * (ABNORMAL) Ur Protein/Creatinine Ratio (07/28/2024 10:15 AM CDT) UR PROTEIN RAND, QT 170.7 mg/dL 07/28/2024 12:27 PM CDT [facility] Comment:No reference range h as been established. Consider Clinical Correlation. URINE CREATININE 532.6 mg/dL 07/28/2024 12:27 PM CDT [facility] Comment:No reference range h as been established. Consider Clinical Correlation. URINE PROTEIN/CREATIN INE RATIO 0.32(H) <0.25 07/28/2024 12:27 PM CDT [facility] Urine Non-Phlebotomy Collection / Unknown 07/28/2024 10:15 AM CDT 07/28/2024 12:09 PM CDT us Urbano Quiñonez MD URINE ORDERABLES Final Resu lt [facility] [address] [place] [address] * US RENAL COMPLETE (07/27/2024 12:40 PM [...] PM T: ??07/27/2024 12:49 PM Report ID: [id number] Reading Location: ??[id number] Procedure Note Piero Chapman MD - 07/27/2024 [...] Piero Chapman M.D. KN: KHARI Report ID: [id number] Reading Location: [id number] IMPRESSION: Normal kidneys. Debris within the bladder. [...] ?PAINTER ERWIN Brand ?2000 Patient ID (UPI) ?[id number] ? Indications: Pericardial effusion. Study Date07/26/2024 Technical [...] ?BMI (BSA) ?41.58 kg/m^2 (2.23 ? m^2) Manager Bank ?Bayron Joseph Room ? 241 Interpreting ? Valencia ? Referring Physician ?Wale ?Physician ?Isabel ?Emily Procedure Note Emily Hall MD - 07/27/2024 Transthoracic Echocardiography Report (TTE) Patient name PAINTER ERWIN Brand Cecile 2000 Patient ID (UPI) [id number] Indications: Pericardial effusion. Study Date07/26/2024 Technical quality: [...] lbs. BMI (BSA) 41.58 kg/m^2 (2.23 m^2) Manager Bank Bayron Joseph Room 241 Interpreting [facility] Referring Physician Wale Physician Isabel Diaz us Esteban Mcgovern SCIENCE INTERPRETER, PCA ASSISTED LIVING IMG ECHO ORDERABLES Fin al Result * MAGNESIUM (MG) (07/26/2024 12:21 AM CDT) MAGNESIUM 2.2 1.6 - 2.6 mg/dL 07/26/2024 2:22 AM CDT [facility] Blood Venipuncture / Unknown 07/26/2024 12:21 AM CDT 07/26/2024 12:22 AM CDT us Esteban Mcgovern SCIENCE INTERPRETER, PCA ASSISTED LIVING CHEMISTRY ORDERABLES Fi nal Result [facility] [address] [place] [address] * CT ABDOMEN PELVIS W/O CONTRAST (07/25/2024 [...] for this examination. COMPARISON: ?? 06/27/2024 from [facility]. ??PET-CT 04/03/2024. FINDINGS: The sensitivity for detection [...] PM T: ??07/25/2024 12:55 PM Report ID: [id number] Reading Location: ??[id number] Procedure Note Flora Hernandez MD - 07/25/2024 [...] technique for this examination. COMPARISON: 06/27/2024 from [facility]. PET-CT 04/03/2024. FINDINGS: The sensitivity for detection [...] Flora Hernandez M.D. TW: JENNY Report ID: [id number] Reading Location: [id number] IMPRESSION: Fluid-filled colon, without wall thickening or [...] Continued imaging surveillance recommended. Gael Morales MD [facility] ORDERABLES Final Re sult * Critical [...] 12 LEAD (07/25/2024 11:48 AM CDT) Pathologist [facility] Ventricular Rate 125 BPM EXTERNAL EKG Atrial Rate 125 BPM EXTERNAL EKG P-R Interval 142 ms EXTERNAL EKG QRS Duration 86 ms EXTERNAL EKG Q-T Duration 302 ms EXTERNAL EKG QTC CALCULATION 435 ms EXTERNAL EKG P [place] 58 degrees EXTERNAL EKG R [place] 6 degrees EXTERNAL EKG T [place] 131 degrees EXTERNAL EKG 07/25/2024 11:4 8 AM CDT Impressions EXTERNAL EKG - 08/06/2024 1:46 PM CDT Sinus tachycardia Possible Left atrial enlargement Possible Anterior infarct (cited on or before 25-JUL-2024) ST & T wave abnormality, consider lateral ischemia Abnormal ECG When compared with ECG of 23-JUL-2024 08:15, No significant change was found Confirmed by WALE VALENCIA ([id number]) on 07/28/2024 12:15:11 PM Also confirmed by WALE VALENCIA ([id number]), clinical editor Jocelyne Hinton ([id number]) ??on 08/06/2024 1:46:44 PM Narrative Procedure Note Wale Valencia MD - 08/06/2024 IMPRESSION: Sinus tachycardia Possible Left atrial enlargement Possible Anterior infarct (cited on or before 25-JUL-2024) ST & T wave abnormality, consider lateral ischemia Abnormal ECG When compared with ECG of 23-JUL-2024 08:15, No significant change was found Confirmed by WALE VALENCIA ([id number]) on 07/28/2024 12:15:11 PM Also confirmed by WALE VALENCIA ([id number]), clinical editor Jocelyne Hinton ([id number])on 08/06/2024 1:46:44 PM Gael Morales MD IMG ECG ORDERABLES Final R esult Performing Organization Address [facility] Co de Phone Number EXTERNAL EKG * EKG SCAN (07/25/2024 12:00 AM CDT) 07/25/2024 us Provider Scan IMG ECG ORDERABLES Final Result Performing Organization Address [facility] Co de Phone Number RESULTING AGENCY * Hemoglobin A1C w/ Estimated Glucose (07/24/2024 5:48 AM CDT) HGB-A1C 5.5 4.0 - 6.0 % 07/26/2024 12:49 AM CDT [facility] Est Average Glucose 111.2 mg/dL 07/26/2024 12:49 AM CDT [facility] Blood Venipuncture / Unknown 07/24/2024 5:48 AM CDT 07/24/2024 7:07 AM CDT Narrative [facility] - 07/26/2024 12:49 AM CDT HEMOGLOBIN A1C: DIABETIC PATIENTS: WELL-CONTROLLED: ?? 6.2 - 7.0 INTERMEDIATE WELL-CONTROLLED: ??7.0 - 9.0 POORLY-CONTROLLED: ??>9.0 Esteban Mcgovern SCIENCE INTERPRETER, PCA ASSISTED LIVING CHEMISTRY ORDERABLES Fi nal Result Performing Organization Address [facility] de Phone Number [facility] [address] [place] [address] documented in this encounter Visit Diagnoses Diagnosis [...] taking oral intake without complications and both PO/MT orders are active, administer through the oral route. acetaminophen (TYLENOL) tablet 650 mg 650 mg, Oral, EVERY 4 HOURS PRN, Starting on Tue07/25/24 at 1748, Until Tue07/30/24 at 1739, Mild pain or more severe pain if patient requests, Fever, If patient is taking oral intake without complications and both PO/MT orders are active, administer through the oral [...] Andres, Student) 899 (Given - Provider: Elliott dHz, KRISTAL) methylPREDNISolone Na Suc (PF) (Solu-MEDROL) injection [...] taking oral intake without complications and both PO/MT orders are active, administer through the oral route. acetaminophen (TYLENOL) tablet 650 mg(Linked Group 1) 650 mg, Oral, EVERY 4 HOURS PRN, Starting on Tue07/25/24 at 1748, Until Tue07/30/24 at 1739, Mild pain or more severe pain if patient requests, Fever, If patient is taking oral intake without complications and both PO/MT orders are active, administer through the oral [...] taking oral intake without complications and both PO/MT orders are active, administer through the oral route. Or acetaminophen (TYLENOL) suppository 650 mgJump to med 650 mg, Rectal, EVERY 4 HOURS PRN, Starting on Tue07/25/24 at 1748, Until Tue07/30/24 at 1739, Mild pain or more severe pain if patient requests, Fever, If patient is taking oral intake without complications and both PO/MT orders are active, administer through the oral [...] medications. documented in this encounter Care Teams Local Delivery Truck Driver Relationship Specialty Start Date End Date Kellen Chu MD [address] [address] PCP - General Family Medicine 04/18/24 Markus Finley MD [address] [place] [address] Consulting Physician Medical Oncology 04/18/24 documented as of this encounter
--- OUTSIDE RECORDS SUMMARY | 2024-10-27 02:47 | XMS_ITS | Encounter Summary ---
Author Organization [facility] Address [address] [facility] [place] [address] Phone Care Team Providers Care Can Reconditioner Name Role Phone Pritesh Chu MD Primary Care Provider [phone] Markus Finley MD Unavailable [phone] Reason for Referral * Radiology Services (Routine) - Closed Specialty Diagnoses / Procedures Referred By Delbert villareal Referred To Contact Radiology Diagnoses Metastatic melanoma (HCC) Procedures PET CT TUMOR IMAGING WHOLE BODY Markus Finley MD [address] [place] [address] Phone: tel: fax: Referral ID Status Reason Start Date Expiration Date Visits Re quested Visits Authorized [id number] Closed 08/06/2024 1 1 Reason for Visit * Reason Comments Follow-up Encounter Details Date Type Department Care Team (Latest Contact Info) Description 08/06/2024 10:40 AM CDT Office Visit [facility] [address] [place] [address] Markus Finley MD [address] [place] [address] Metastatic melanoma (HCC) (Primary Dx); Hypothyroidism due [...] oz pur e alcohol) [facility] Packet[employer] Answer Date Recorded In the past 12 months has th e electric, gas, oil, or water [employer] threatened to shut off services in your home? Patient declined 08/01/2024 Social Connection and Isolation Panel [NHANES] A nswer Date Recorded In a typical week, how many times do you talk on the phone with family, friends, or neighbors? Patient declined 08/01/2024 How often do you get togethe r with friends or relatives? Patient declined 08/01/2024 How often do you attend temple or jew serv ices? Patient declined 08/01/2024 [...] medical care, and heating? Patient declined 08/01/2024 [facility] [place] of Occupat ional Health - Occupational Stress [...] called Chris. Patient was recently admitted to [facility] from 07/25/24 through 07/30/24 and 08/02/24 [...] Yervoy and Opdivo on 07/17/24 --admitted to [facility] from 07/25/24 through 07/30/24 and 08/02/24 [...] IMAGING STUDIES: CT abdomen pelvis done at [facility] on 06/27/2024 No evidence of [...] called Chris. Patient was recently admitted to [facility] from 07/25/24 through 07/30/24 and 08/02/24 [...] 4 of Christoph on 07/17/24 --admitted to [facility] from 07/25/24 through 07/30/24 and 08/02/24 [...] IMAGING STUDIES: CT abdomen pelvis done at [facility] on 06/27/2024 No evidence of [...] her PET scan per patient's request at [facility] this time to evaluate response in the [...] st Contact Info) Description 11/15/2024 1:00 PM PACKAGING ENGINEER Lab [facility] [address] [place] [address] Markus Finley MD [address] [place] [address] 11/15/2024 2:00 PM PACKAGING ENGINEER Appointment [facility] [address] [place] [address] Markus Finley MD [address] [place] [address] Discharge Disposition: Discharged to home or Selfcare [...] AM T: ??08/16/2024 11:30 AM Report ID: [id number] Reading Location: ??[id number] Procedure Note Zachariah Carrizales MD - 08/16/2024 [...] Zachariah Carrizales M.D. LB: KRUNAL Report ID: [id number] Reading Location: [id number] IMPRESSION: Hypermetabolic left inguinal lymph node measuring [...] unspecified documented in this encounter Care Teams Can Reconditioner Relationship Specialty Start Date End Date Pritesh Chu MD [address] [address] PCP - General Family Medicine 04/18/24 Markus Finley MD [address] [place] [address] Consulting Physician Medical Oncology 04/18/24 documented as of this encounter
--- OUTSIDE RECORDS SUMMARY | 2024-10-27 02:47 | XMS_ITS | Encounter Summary ---
Author Organization [facility] Address [address] [place] [address] Phone Care Team Providers Care Esthetician And Manager Medical Spa Name Role Phone Pritesh Chu MD Primary Care Provider [phone] Markus Finley MD Unavailable Reason for Visit * Reason Onset Date Comments Transition of Care 07/31/2024 TCM 1st attem pt Encounter Details Date Type Department Care Team (Late st Contact Info) Description 07/31/2024 Patient Outreach [facility] Cocoa Mill Operator Management [address] [place] [address] Maday Suarez, RN [place] Transition of Care (TCM 1st attempt) Social History Tobacco Use Types Packs/Day Years Used Date Smoking Tobacco: Former Cigarettes 0.5 8.5 S tarted: 04/18/2016 Smokeless Tobacco: Never Alcohol Use Standard Drinks/Week Comments Yes 0 (1 standard drink = 0.6 oz pur e alcohol) [facility] Utilities Answer Date Recorded [...] How often do you attend moravian or sabianist serv ices? Patient declined 08/01/2024 [...] [facility] of Occupat ional Health [...] Follow-Up Call Discharge diagnosis: ALEXX Discharge facility: [facility] Patient's Current Condition: Chris states that [...] no Nebulizer: no Medications: Did the patient continuous pickling line pickler helper their medications from the pharmacy? Yes Is the patient compliant with the medication directions? Yes Follow Up Appointments: All Patient Appointments Provider Department Dept Phone 08/01/2024 2:20 PM Markus Finley [facility] Oncology Services [phone] 08/07/2024 2:00 PM [facility] CC INFUSION CHR7 [facility] Oncology Services [phone] PCP:Dr. Chu - states she will not f/u with PCP and she only sees [facility] Appointment scheduled within 7 days of Discharge (5 days for Heart Failure)? Yes, with [facility] - oncology Transportation: Patient plans to attend follow-up appointment and has transportation to follow up visit?Yes 60 Day utilization: ED: 3 Hospital Admissions: 2 Please call Women'S Activities Adviser Maday RN, at [phone] with any questions. documented in this encounter Plan of Treatment Upcoming Encounters Date Type Department Care Team (Late st Contact Info) Description 11/15/2024 1:00 PM SENIOR SOFTWARE QUALITY ENGINEER Lab [facility] Services [address] [place] [address] Markus Finley MD [address] [place] [address] 11/15/2024 2:00 PM SENIOR SOFTWARE QUALITY ENGINEER Appointment [facility] MRI [address] [place] [address] Markus Finley MD [address] [place] [address] Discharge Disposition: Discharged to home or Selfcare documented as of this encounter Visit Diagnoses Not on filedocumented in this encounter Care Teams Esthetician And Manager Medical Spa Relationship Specialty Start Date End Date Pritesh Chu MD [address] [place] [address] PCP - General Family Medicine 04/18/24 Markus Finley MD [address] [place] [address] Consulting Physician Medical Oncology 04/18/24 documented as of this encounter
--- OUTSIDE RECORDS SUMMARY | 2024-10-27 02:47 | XMS_ITS | Encounter Summary ---
Author Organization [facility] Address [address] [place] [address] Phone Care Team Providers Care Produce Department Manager Name Role Phone Kellen Chu MD Primary Care Provider [phone] Markus Finley MD Unavailable [phone] Reason for Visit * Reason Comments Dehydration * Auth/Cert (Routine) Specialty Diagnoses / Procedures Referred By Contross t Referred To Contact Diagnoses Acute renal failure, unspecified acute renal failure type (HCC) Diarrhea, unspecified type Nausea and vomiting, unspecified vomiting type Lee Lan MD [address] [place] [address] Phone: tel: fax: Referral ID Status Reason Start Date Expiration Date Visits Re quested Visits Authorized [id number] 1 1 Encounter Details Date Type Department Care Team (Latest Contact Info) Description 08/01/2024 12:38 PM CDT - 08/03/2024 6:15 PM CDT Hospital Encounter [facility] Med Surg [address] [place] [id number] Graciela Jonas, PAC [address] [place] [address] Gael Morales MD [address] [place] [address] Lee Lan MD [address] [place] [address] Acute renal failure, unspecified acute renal failure type (HCC) [place] Disposition[place] [facility] [place] Tobacco Use Types Packs/Day Years Used Date Smoking Tobacco: Former Cigarettes 0.5 8.5 S tarted: 04/18/2016 Smokeless Tobacco: Never Alcohol Use Standard Drinks/Week Comments Yes 0 (1 standard drink = 0.6 oz pur e alcohol) [facility] Utilities Answer Date Recorded In the past 12 months has [employer], gas, oil, or water [employer] threatened to shut off services in your home? Patient declined 08/01/2024 Social Connection and Isolation Panel [NHANES] A nswer Date Recorded In a typical week, how many times do you talk on the phone with family, friends, or neighbors? Patient declined 08/01/2024 How often do you get togethe r with friends or relatives? Patient declined 08/01/2024 How often do you attend jainism or confucianism serv ices? Patient declined 08/01/2024 Do you [...] the past 12 m [facility], were you homeless or living in a [...] the original note were not included. [facility] DIS[facility] SUMMARY Name: Dayanara Hilton Age: 24 [...] 1 week(s) [address] [address] [facility] Call in 1 week(s) [address] [facility] [address] Markus Finley MD Medical Oncology, Hematology, Internal Medicine Call in 1 week(s) #1 [facility] [address] Discharge Instructions: Discharge Condition: improved Disposition: [facility] Referral. Face to Face Encounter completed [...] diarrhea secondary to immunotherapy, who presented to [facility] with complaints of intractable nausea and vomiting.[facility] intractable nausea vomiting with diarrhea causing dehydration. He was treated with aggressive IV hydration and supplements and discharged home. Patient returned to the ED again for similar symptoms and was hospitalized from 07/25 through 07/30.She was diagnosed with acute renal failure and seen by police records clerk. Patient had a negative stool culture as [...] Dr. Finley and was immediately sent to [facility] ED for further evaluation. Laboratory data revealed [...] HGBA1C 5.5 07/24/2024 No results found for: [id number] No results found for: CPK , CPKI , CKMB , CKMBNI , CKMBPOCT , CKMBRELINDX , TROPONINI , POCTRP No results found for: FERRITIN No results found for: FOLATE No results found for: PHARTERIAL , PO2ART , DRM0WCG , CO2ART , O2ART Lab Results Component [...] these medications potassium chloride SA 20 MEQ Vun-[id number]-[id number] Commonly known as: KLORCON M Where to [...] you very much for allowing the [facility] Adult Hospitalist Service to participate in the [...] IV fluids normal saline daily via port. 61173 mL 08/03/2024 documented as of this encounter Progress Notes * Urbano Quiñonez MD - 08/03/2024 6:42 AM CDT Nephrology Progress Note [facility] ASSESSMENT: ALEXX-Probably Prerenal and Immunotherapy [...] MD - 08/02/2024 11:12 AM CDT [facility] PROGRESS NOTE Dayanara Hilton is [...] results found for: PHARTERIAL , PO2ART , GSR9FZZ , CO2ART , O2ART No results for [...] LACTICA 1.3 07/23/2024 No results found for: [id number] No results found for: FERRITIN No results found for: GLUCOSEPOCT High Sensitivity Troponin: No results found for: HSTRP No results found for: DDIMER EKG: EKG 12 LEAD Result Date: 07/24/[address] & T wave abnormality, consider lateral ischemia Abnormal ECG No previous ECGs available Confirmed by Emily Hall ([id number]) on 07/24/2024 9:19:48 AM Imaging: No results found. By: Lee Lan MD, 08/02/2024 4:52 PM CDT documented in this encounter H&P Notes * Lee Lan MD - 08/01/2024 2:32 PM CDT [facility] ADMISSION HISTORY & PHYSICAL HPI: Dayanara Hilton is a 24 y.o. female who is known to me from his admission with melanoma of her left foot status post surgery with a skin graft in his undergoing immunotherapy with oncologist Dr. 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 [facility] intractable nausea vomiting with diarrhea causing dehydration. He was treated with aggressive IV hydration and supplements and discharged home. Patient returned to the ED again for similar symptoms and was hospitalized from 07/25 through 07/30.She was diagnosed with acute renal failure and seen by police records clerk. Patient had a negative stool culture as [...] results found for: PHARTERIAL , PO2ART , PGE4ABF , CO2ART , O2ART No results found [...] with patient and/or family and/or Power of Professor Of Biostatistics approximately 16 minutes. Discussed CPR/Intubation/Treatment Goals/Quality of life/Intensity of Care. Patient desires: Full Code VTE Prophylaxis: Lovenox 40mg Q24h Treatment Team: Consulting Physician: Markus Finley MD Thank you very much for allowing the [facility] Adult Hospitalist Service to participate in the care of this patient By: Esteban Mcgovern APRN, CNP, 08/01/2024, 2:32 PM CDT Primary Care Physician: KELLEN CHU MD documented in this encounter Consult Notes * Urbano Quiñonez MD - 08/02/2024 8:19 AM CDTAssociated Order(s): IP CONSULT TO NEPHROLOGY Nephrology Consult [facility] Reason for Consult: @NEPHROCONSULTREASON@ Requesting [...] 1 Tablet Oral 4x Daily Esteban Mcgovern, CAR DISTRIBUTOR, SOFTWARE SECURITY ARCHITECT metroNIDAZOLE (FLAGYL) IV 500 mg 500 mg [...] Session: Patient declined Stress: Patient Declined (07/25/2024) [employer] [place] [employer] - Occupational Stress Questionnaire Feeling of Stress : Patient declined Recent Concern: Stress - Stress Concern Present (06/27/2024) [employer] [place] [employer] - Occupational Stress Questionnaire Feeling of Stress : To some extent Social Integration: Patient Declined (07/25/2024) Social Connection and Isolation Panel [NHANES] Frequency of Communication with Friends and Family: Patient declined Frequency of Social Gatherings with Friends and Family: Patient declined Attends [employer] Services: Patient declined Active Member of Clubs [...] More than three times a week Attends [employer] Services: Never Active Member of Clubs or [...] and steroids. CM discussed this with Oncology clubhouse manager Marie who has scheduled her on Tuesday to get these supplement infusions. Information is on her AVS. Discharge Plan Notification/ Verification Patient's Phone numbers: [phone] (home) Patient's preferred discharge phone number for [...] Luz Cruz - 08/03/2024 11:10 AM CDT Blow Mold Operator Coordination Note SUMMARY - Blow Mold Operator currently working the potential transition plan(s): [...] all question regarding hospital transition to the Plant Superintendent) Readmission risk level (if calculated) is: 3-Medium [...] Ida Contact 08/03/2024 @ 11:10 AM CDT ([facility], ) Text from Ida, they are unable to accommodate pt. Informed CMOlivia via secure chat 08/03/2024 @ 10:13 AM CDT ([facility], ) Text from Ida stating they are reviewing benefits and request. This is done on a case by case basis and she will keep us posted. MORALES Ontiveros aware 08/02/2024 @ 4:15 PM CDT ([facility], ) Referral sent via [employer] fax. Notified Ida via text * Interdisciplinary [...] (compare to working DRG): 1 Reason for Plant SuperintendentElementary Reading Specialist: High Risk for Readmission (High, Medium- High) [...] [facility] (HIP) 08/02/24 Patient/ patient brand representative's preferences regarding the discharge plan: return [...] Luz Coronado - 08/02/2024 8:29 AM CDT Blow Mold Operator Coordination Note SUMMARY - Blow Mold Operator currently working the potential transition plan(s): 08/02/2024 @ 4:15 PM CDT ([facility], ) [facility] [HIP] 08/02/2024 @ 8:29 AM CDT ([facility], ) Follow Up Appointment (See detail within the referral type(s) below for information on what is needed to complete coordination Note - the Transition Specialists do not coordinate all transition types - please direct all question regarding hospital transition to the Plant Superintendent) Readmission risk level (if calculated) is: 3-Medium [...] Ida Contact 08/02/2024 @ 4:15 PM CDT ([facility], ) Referral sent via [employer] fax. Notified Ida via text * Interdisciplinary - Ssusy Portillo RN - 08/01/2024 10:30 PM CDT [...] st Contact Info) Description 11/15/2024 1:00 PM MACHINERY ERECTOR [facility] 1 [place] [address] Markus Finley MD [address] [place] [address] 11/15/2024 2:00 PM MACHINERY ERECTOR [facility]ment [facility] 1 [place] [address] Markus Finley MD [address] [place] [address] Discharge Disposition: Discharged to home or Selfcare [...] - 145 mmol/L 08/10/2024 11:56 AM CDT [facility] POTASSIUM 3.9 3.5 - 5.1 mmol/L 08/10/2024 11:56 AM CDT [facility] CHLORIDE 105 98 - 107 mmol/L 08/10/2024 11:56 AM CDT [facility] CO2, VENOUS 23 22 - 30 mmol/L 08/10/2024 11:56 AM CDT [facility] ANION GAP 8.9 <18.0 mmol/L 08/10/2024 11:56 AM CDT [facility] GLUCOSE 138(H) 70 - 99 mg/dL 08/10/2024 11:56 AM CDT [facility] BUN 15 5 - 18 mg/dL 08/10/2024 11:56 AM CDT [facility] CREATININE, BLOOD 0.86 0.60 - 1.00 mg/dL 08/10/2024 11:56 AM CDT [facility] BUN/CREATININE RATIO 17 12 - 20 ratio 08/10/2024 11:56 AM CDT [facility] CALCIUM 8.9 8.7 - 10.5 mg/dL 08/10/2024 11:56 AM CDT [facility] GFR, ESTIMATED >60 >=60 08/10/2024 11:56 AM CDT [facility] [...] EST. >60 >=60 024 11:56 AM CDT [facility] GFR, EST. NONAFRICAN >60 >=60 08/10/2024 11:56 AM CDT [facility] Blood Sub-Q Port Venou s Access Device (Medi-Port, Implanted Port) / Unknown 08/10/2024 11:20 AM CDT 08/10/2024 11:20 AM CDT Lee Lan MD CHEMISTRY ORDERABLES Fin al Result [facility] [address] [place] [address] * (ABNORMAL) CBC with Auto Differential (08/03/2024 4:32 AM CDT) Only the most recent of2 resultswithin the time period is included. WBC 8.19 4.00 - 12.00 10(3)/mcL 08/03/2024 7:29 AM CDT [facility] RBC 4.01 3.80 - 5.30 10(6)/mcL 08/03/2024 7:29 AM CDT [facility] HEMOGLOBIN (HGB) 12.1 12.0 - 15.8 g/dL 08/03/2024 7:29 AM CDT [facility] HEMATOCRIT (HCT) 35.4(L) 36.0 - 47.0 % 08/03/2024 7:29 AM CDT [facility] MCV 88.3 82.0 - 96.0 fL 08/03/2024 7:29 AM CDT [facility] MCH 30.2 26.0 - 34.0 pg 08/03/2024 7:29 AM CDT [facility] MCHC 34.2 31.0 - 36.0 g/dL 08/03/2024 7:29 AM CDT [facility] PLATELET COUNT 225 140 - 440 10(3)/[facility] 08/03/2024 7:29 AM CDT [facility] RDW 13.7 11.8 - 15.5 % 08/03/2024 7:29 AM CDT [facility] MPV 10.2 9.7 - 12.4 fL 08/03/2024 7:29 AM CDT [facility] NEUTROPHILS 90.3(H) 47.0 - 73.0 % 08/03/2024 7:29 AM CDT [facility] LYMPHOCYTES 4.8(L) 18.0 - 42.0 % 08/03/2024 7:29 AM CDT [facility] MONOCYTES 4.8 4.0 - 12.0 % 08/03/2024 7:29 AM CDT [facility] EOSINOPHILS 0.0 0.0 - 5.0 % 08/03/2024 7:29 AM CDT [facility] BASOPHILS 0.1 0.0 - 1.0 % 08/03/2024 7:29 AM CDT [facility] ABSOLUTE NEUTROPHILS 7.40 1.60 - 7.70 10(3)/[facility] 08/03/2024 7:29 AM CDT [facility] ABSOLUTE LYMPHOCYTES 0.39(L) 1.30 - 3.20 10(3)/[facility] 08/03/2024 7:29 AM CDT [facility] ABSOLUTE MONOCYTES 0.39 0.20 - 1.00 10(3)/[facility] 08/03/2024 7:29 AM CDT [facility] ABSOLUTE EOSINOPHIL 0.00 0.00 - 0.40 10(3)/[facility] 08/03/2024 7:29 AM CDT [facility] ABSOLUTE BASOPHILS 0.01 0.00 - 0.10 10(3)/mcL 08/03/2024 7:29 AM CDT [facility] NRBC PER 100 WBC 0 08/03/20 7:29 AM CDT [facility] RESULTS ARE CONSISTENT WITH PERIPHERAL SMEAR REVIEW Yes 08/03/2024 7:29 AM CDT [facility] RBC MORPHOLOGY CONSISTENT WITH INDICES Yes 08/03/2024 7:29 AM CDT [facility] Blood Venipuncture / Unknown 08/03/2024 4:32 AM CDT 08/03/2024 6:29 AM CDT Esteban Mcgovern CAR DISTRIBUTOR, SOFTWARE SECURITY ARCHITECT HEMATOLOGY ORDERABLES F inal Result Performing Organization Address City/[facility]/ZIP Co de Phone Number [facility] [address] [place] [address] * THYROXINE (T4) FREE (08/03/2024 4:32 AM CDT) T4 FREE 0.7 0.7 - 1.9 ng/dL 08/03/2024 7:20 AM CDT [facility] Blood Venipuncture / Unknown 08/03/2024 4:32 AM CDT 08/03/2024 6:28 AM CDT us Urbano Quiñonez MD CHEMISTRY ORDERABLES Final Result [facility] [address] [place] [address] * Triiodothyrinine (T3) Free (08/03/2024 4:32 AM CDT) FREE T3 1.6 1.6 - 3.9 pg/mL 08/03/2024 4:08 PM CDT [facility] Blood Venipuncture / Unknown 08/03/2024 4:32 AM CDT 08/03/2024 6:28 AM CDT Urbano Quiñonez MD CHEMISTRY ORDERABLES Final Result [facility] [address] [place] [address], [place] * RHYTHM STRIP (08/03/2024 12:00 AM CDT) Only the most recent of6 resultswithin the time period is included. 08/03/2024 us Provider Scan IMG ECG ORDERABLES Final Result Performing Organization Address City/[facility]/ZIP Co de Phone Number RESULTING AGENCY * C. DIFF BY PCR (08/01/2024 7:08 PM CDT) C DIFF TOXIN DNA BY PCR Negative Negative, Invalid 08/01/2024 7:56 PM CDT [facility] Other STOOL SPECIMEN / Unknown Non-Phlebotomy Collection / Unknown 08/01/2024 7:08 PM CDT 08/01/2024 7:08 PM CDT Gael Morales MD MICROBIOLOGY - GENERAL ORD ERABLES Final Result Performing Organization Address City/[facility]/ZIP Co de Phone Number [facility] [address] [place] [address] * Blood Culture #2 (08/01/2024 3:48 PM CDT) Only the most recent of2 resultswithin the time period is included. CULTURE RESULTS NO GROWTH WITHIN 5 DAYS, FINAL RESULT 08/06/2024 5:01 PM CDT [facility] Culture BLOOD SPECIMEN / Unknown Venipuncture / Unknown 08/01/2024 3:48 PM CDT 08/01/2024 4:10 PM CDT Gael Morales MD MICROBIOLOGY - GENERAL ORD ERABLES Final Result [facility] [address] [place] [address], [place] * XR CHEST SINGLE VIEW PORTABLE [...] PM T: ??08/01/2024 2:59 PM Report ID: [id number] Reading Location: ??[id number] Procedure Note Nisreen Lara MD - 08/01/2024 [...] Nisreen Esteban M.D. FT: FT Report ID: [id number] Reading Location: [id number] IMPRESSION: No acute cardiopulmonary abnormality. Result [facility] Gael Morales MD IMG DIAGNOSTIC ORDERABLES Final [...] ?Care discussed with: admitting provider ?? Result [facility] Gael Morales MD PROCEDURE/MINOR SURGICAL O RDERABLES Final Result * RACHID MUIR HEPARIN/SST TOP TUBE (08/01/2024 1:30 PM CDT) Blood No Phlebotomy Charged / Unknown 08/01/2024 1:30 PM CDT 08/01/2024 1:[address] [facility] Gael Morales MD HEMATOLOGY ORDERABLES Susan l Result [facility] [address] [place] [address] * Lavender Top Tube (08/01/2024 1:30 PM CDT) Blood No Phlebotomy Charged / Unknown 08/01/2024 1:30 PM CDT 08/01/2024 1:30 PM CDT Gael Morales MD HEMATOLOGY ORDERABLES Susan l Result Performing Organization Address City/[facility]/ZIP Co de Phone Number [facility] [address] [place] [address] * Gold Top Tube (08/01/2024 1:30 PM CDT) Blood No Phlebotomy Charged / Unknown 08/01/2024 1:30 PM CDT 08/01/2024 1:30 PM CDT Gael Morales MD CHEMISTRY ORDERABLES Final Result Performing Organization Address City/[facility] Co de Phone Number [facility] [address] [place] [address] * Blue Top Tube (08/01/2024 1:30 PM CDT) Blood No Phlebotomy Charged / Unknown 08/01/2024 1:30 PM CDT 08/01/2024 1:30 PM CDT Gael Morales MD HEMATOLOGY ORDERABLES Susan l Result Performing Organization Address City/[facility]/ZIP Co de Phone Number [facility] [address] [place] [address] documented in this encounter Visit Diagnoses Diagnosis [...] 08/02/2024 11:27 PM CDT 150 mL/hr [facility] 08/02/2024 4:34 PM CDT 150 mL/hr [facility] 08/02/2024 9:47 AM CDT 150 mL/hr acetaminophen [...] documented as of this encounter Care Teams Produce Department Manager Relationship Specialty Start Date End Date Kellen Chu MD [address] [address] PCP - General Family Medicine 04/18/24 Markus Finley MD [address] [place] [address] Consulting Physician Medical Oncology 04/18/24 documented as of this encounter
--- OUTSIDE RECORDS SUMMARY | 2024-10-27 02:47 | XMS_ITS | Encounter Summary ---
Author Organization [employer] Care Team Providers Care Bulk Receiver Name Role Phone Pritesh Chu MD Primary Care Provider [phone] Markus Finley MD Unavailable [phone] Encounter Details Date Type Department Care Team (Latest Contact Info) Description 08/01/2024 Travel Social History Tobacco Use Types Packs/Day Years Used Date Smoking Tobacco: Former Cigarettes 0.5 8.5 S tarted: 04/18/2016 Smokeless Tobacco: Never Alcohol Use Standard Drinks/Week Comments Yes 0 (1 standard drink = 0.6 oz pur e alcohol) [facility] Utilities Answer Date Recorded In the past 12 months has [employer], gas, oil, or water [employer] threatened to shut off services in your home? Patient declined 08/01/2024 Social Connection and Isolation Panel [NHANES] A nswer Date Recorded In a typical week, how many times do you talk on the phone with family, friends, or neighbors? Patient declined 08/01/2024 How often do you get togethe r with friends or relatives? Patient declined 08/01/2024 How often do you attend mandaen or jainism serv ices? Patient declined 08/01/2024 [...] declined 08/01/2024 [facility] - Occupational [...] st Contact Info) Description 11/15/2024 1:00 PM GASKET INSPECTOR [facility] 1 [place] [id number] Markus Finley MD [address] [place] [address] 11/15/2024 2:00 PM GASKET INSPECTOR [facility]ointment [facility] 1 [place] [phone] [place] [address] Discharge Disposition: Discharged to home or Selfcare documented as of this encounter Visit Diagnoses Not on filedocumented in this encounter Additional Health Concerns Infection Onset Date Last Indicated Resolved Time C. difficile Rule-Out 08/01/2024 08/01/20242023 7:56 PM CDT documented as of this encounter Care Teams Bulk Receiver Relationship Specialty Start Date End Date Pritesh Chu MD [address] [place] [address] PCP - General Family Medicine 04/18/24 Markus Finley MD [address] [place] [address] Consulting Physician Medical Oncology 04/18/24 documented as of this encounter
--- OUTSIDE RECORDS SUMMARY | 2024-10-27 02:47 | XMS_ITS | Encounter Summary ---
Author Organization [facility] Address [address] [place] [address] Phone Care Team Providers Care Hasher Machine Operator Name Role Phone Pritesh Chu MD Primary Care Provider [phone] Markus Finley MD Unavailable [phone] Encounter Details Date Type Department Care Team (Late st Contact Info) Description 07/25/2024 Post Discharge [facility]up [facility] Nursing Services [address] [place] [address] Arline Rojo, RN [place] Social History Tobacco Use Types Packs/Day Years Used Date Smoking Tobacco: Former Cigarettes 0.5 8.5 S tarted: 04/18/2016 Smokeless Tobacco: Never Alcohol Use Standard Drinks/Week Comments Yes 0 (1 standard drink = 0.6 oz pur e alcohol) [facility] Utilities Answer Date Recorded In the past 12 months has [employer], gas, oil, or water company threatened [...] declined 07/25/2024 How often do you attend druze or catholic serv ices? Patient declined 07/25/2024 Do you [...] medical care, and heating? Patient declined 07/25/2024 [facility] - Occupational Stress Questionnaire Answer Date [...] any time in the past 12 m [facility], were you homeless or living in [...] Info) Description 11/15/2024 1:00 PM CUT OUT MARKER Lab [facility] [address] [place] [address] Markus Finley MD [address] [place] [address] 11/15/2024 2:00 PM CUT OUT MARKER [facility]ment [facility] [address] [place] [address] Markus Finley MD [address] [place] [address] Discharge Disposition: Discharged to home or Selfcare documented as of this encounter Visit Diagnoses Not on filedocumented in this encounter Care Teams Hasher Machine Operator Relationship Specialty Start Date End Date Pritesh Chu MD [address] [place], [place] [id number] PCP - General Family Medicine 04/18/24 Markus Finley MD [address] [place] [address] Consulting Physician Medical Oncology 04/18/24 documented as of this encounter
--- OUTSIDE RECORDS SUMMARY | 2024-10-27 02:47 | XMS_ITS | Encounter Summary ---
Author Organization [facility] Address [address] [place] [address] Phone Care Team Providers Care Grocery Store Bagger Name Role Phone Pritesh Chu MD Primary Care Provider [phone] Markus Finley MD Unavailable [phone] Reason for Visit * Reason Onset Date Comments Transition of Care 08/04/2024 Encounter Details Date Type Department Care Team (Late st Contact Info) Description 08/04/2024 Patient Outreach [facility] [address] [place] [address] Yadira Gill, cash register servicer of Care Social History Tobacco Use Types Packs/Day Years Used Date Smoking Tobacco: Former Cigarettes 0.5 8.5 S tarted: 04/18/2016 Smokeless Tobacco: Never Alcohol Use Standard Drinks/Week Comments Yes 0 (1 standard drink = 0.6 oz pur e alcohol) [facility] Utilities Answer Date Recorded In [...] How often do you attend gnosticist or faith serv ices? Patient declined 08/01/2024 Do you [...] [facility] of Occupat ional [facility] - Occupational Stress Questionnaire Answer Date [...] a fpc (including now)? Patient declined 08/01/2024 Comments No Sex and Gender Information Value Date Recorded Sex Assigned at Female 06/20/2024 8:39 AM CDT Legal Sex Female 9:04 AM CDT Gender Identity Female 06/20/2024 8:39 AM CDT Sexual Orientation Bisexual 06/20/2024 8: 39 AM CDT documented as of this encounter Progress Notes * Yadira Gill RN - 08/04/2024 4:16 PM CDT Pt d/c from [facility] 08/03 dx acute renal failure d/t nausea/vomiting/dehydration 1st attempt NO answer * Yadira Gill RN - 08/04/2024 4:16 PM CDT 2nd attempt NO answer -letter sent documented in this encounter Plan of Treatment Upcoming Encounters Date Type Department Care Team (Late st Contact Info) Description 11/15/2024 1:00 PM LEAK DETECTOR Lab [facility] Laboratory Services 1 [place] [address] Markus Finley MD [address] [place] [address] 11/15/2024 2:00 PM LEAK DETECTOR Appointment [facility] MRI 1 [facility] [place] [address] Markus Finley MD [address] [place] [address] Discharge Disposition: Discharged to home or Selfcare documented as of this encounter Visit Diagnoses Not on filedocumented in this encounter Care Teams Grocery Store Bagger Relationship Specialty Start Date End Date Pritesh Chu MD [address] [place] [address] PCP - General Family Medicine 04/18/24 Markus Finley MD [address] [place] [address] Consulting Physician Medical Oncology 04/18/24 documented as of this encounter
--- OUTSIDE RECORDS SUMMARY | 2024-10-27 02:47 | XMS_ITS | Encounter Summary ---
Author Organization [facility] Address [address] [facility] [place] [address] Phone Care Team Providers Care Sales Representative Adding Machines Name Role Phone Pritesh Chu MD Primary Care Provider [phone] Markus Finley MD Unavailable [phone] Encounter Details Date Type Department Care Team (Late st Contact Info) Description 08/06/2024 11:30 AM CDT Clinical Support [facility] Oncology Services [address] [place] [phone] Markus Finley MD [address] [place] [address] Diarrhea due to drug (Primary Dx); Metastatic melanoma (HCC) Discharge Disposition: Discharged to home or Selfcare Social History Tobacco Use Types Packs/Day Years Used Date Smoking Tobacco: Former Cigarettes 0.5 8.5 S tarted: 04/18/2016 Smokeless Tobacco: Never Alcohol Use Standard Drinks/Week Comments Yes 0 (1 standard drink = 0.6 oz pur e alcohol) [facility] Utilities Answer Date Recorded In the past 12 months has [employer], [employer], or [employer] threatened to shut off services in your home? Patient declined 08/01/2024 Social Connection and Isolation Panel [NHANES] A nswer Date Recorded In a typical week, how many times do you talk on the phone with family, friends, or neighbors? Patient declined 08/01/2024 How often do you get togethe r with friends or relatives? Patient declined 08/01/2024 How often do you attend bahai or amish serv ices? Patient declined 08/01/2024 Do you [...] Patient declined 08/01/2024 [facility] ional [facility] - [...] Contact Info) Description 11/15/2024 1:00 PM SENIOR PROPERTY MANAGER Lab [facility] Laboratory Services [address] [place] [address] Markus Finley MD [address] [place] [address] 11/15/2024 2:00 PM SENIOR PROPERTY MANAGER [facility]ment [facility] [address] [place] [phone] Markus Finley MD [address] [place] [address] Discharge Disposition: Discharged to home or Selfcare documented as of this encounter Procedures Procedure Name Priority Date/Time Associated Diagnosis Comments CMP (COMPREHENSIVE METABOLIC PANEL) STAT 08/06/2024 1:13 PM CDT documented in this encounter Results * (ABNORMAL) CMP (Comprehensive Metabolic Panel) (08/06/2024 1:13 PM CDT) SODIUM 129(L) 136 - 145 mmol/L 08/06/2024 1:36 PM CDT [facility] POTASSIUM 3.7 3.5 - 5.1 mmol/L 08/06/2024 1:36 PM CDT [facility] CHLORIDE 106 98 - 107 mmol/L 08/06/2024 1:36 PM CDT [facility] CO2, VENOUS 16(L) 22 - 30 mmol/L 08/06/2024 1:36 PM CDT [facility] ANION GAP 10.7 <18.0 mmol/L 08/06/2024 1:36 PM CDT [facility] GLUCOSE 155(H) 70 - 99 mg/dL 08/06/2024 1:36 PM CDT [facility] BUN 14 5 - 18 mg/dL 08/06/2024 1:36 PM CDT [facility] CREATININE, BLOOD 1.15(H) 0.60 - 1.00 mg/dL 08/06/2024 1:36 PM CDT [facility] BUN/CREATININE RATIO 12 12 - 20 ratio 08/06/2024 1:36 PM CDT [facility] TOTAL PROTEIN 6.3 6.3 - 8.2 g/dL 08/06/2024 1:36 PM CDT [facility] ALBUMIN 3.5 3.5 - 5.0 g/dL 08/06/2024 1:36 PM CDT [facility] A/G RATIO 1.3 1.0 - 2.2 08/06/2024 1:36 PM CDT [facility] CALCIUM 9.0 8.7 - 10.5 mg/dL 08/06/2024 1:36 PM CDT [facility] T BILI 0.4 0.2 - 1.2 mg/dL 08/06/2024 1:36 PM CDT [facility] SGOT (AST) 19 5 - 34 U/L 08/06/2024 1:36 PM CDT [facility] SGPT (ALT) 51 0 - 55 U/L 08/06/2024 1:36 PM CDT [facility] ALKALINE PHOSPHATASE 66 40 - 150 U/L 08/06/2024 1:36 PM CDT [facility] GFR, ESTIMATED >60 >=60 08/06/2024 1:36 PM CDT [facility] Comment: Creatinine Clearance is the preferred criteria for selecting drug dose adjustments in renally impaired patients. ??The GFR is provided as additional pertinent clinical information. GFR is reported in mL/min/1.73 sq m. Calculation based on the Chronic Kidney Disease Epidemiology Collaboration (CKD- EPI) equation refit without adjustment for race. GFR, EST. >60 >=60 024 1:36 PM CDT [facility] GFR, EST. NONAFRICAN 58(L) >=60 08/06/2024 1:36 PM CDT [facility] Blood Sub-Q Port Venou s Access Device (Medi-Port, Implanted Port) / Unknown 08/06/2024 1:13 PM CDT 08/06/2024 1:13 PM CDT us Markus Finley MD CHEMISTRY ORDERABLES Fin al Result [facility] [place] [address] documented in this encounter Visit Diagnoses Diagnosis [...] documented in this encounter Care Teams Sales Representative Adding Machines Relationship Specialty Start Date End Date Pritesh Chu MD [address] [place] [address] PCP - General Family Medicine 04/18/24 Markus Finley MD [address] [place] [address] Consulting Physician Medical Oncology 04/18/24 documented as of this encounter
--- OUTSIDE RECORDS SUMMARY | 2024-10-27 02:47 | XMS_ITS | Encounter Summary ---
Author Organization [facility] Care Team Providers Care Contact Officer Name Role Phone Pritesh Chu MD Primary Care Provider [phone] Markus Finley MD Unavailable [phone] Encounter Details Date Type Department Care Team (Latest Contact Info) Description 07/25/2024 Travel Social History Tobacco Use Types Packs/Day Years Used Date Smoking Tobacco: Former Cigarettes 0.5 8.5 S tarted: 04/18/2016 Smokeless Tobacco: Never Alcohol Use Standard Drinks/Week Comments Yes 0 (1 standard drink = 0.6 oz pur e alcohol) [facility] Utilities Answer Date Recorded In the past 12 months has [employer], gas, oil, or water MD [employer] threatened to shut off services in your home? Patient declined 07/25/2024 Social Connection and Isolation Panel [NHANES] A nswer Date Recorded In a typical week, how many times do you talk on the phone with family, friends, or neighbors? Patient declined 07/25/2024 How often do you get togethe r with friends or relatives? Patient declined 07/25/2024 How often do you attend yarsanism or yazidi serv ices? Patient declined 07/25/2024 Do you [...] medical care, and heating? Patient declined 07/25/2024 [facility] of Occupat ional Health [...] st Contact Info) Description 11/15/2024 1:00 PM STUD BEEF CATTLE FARMER Lab [facility] [address] [place] [phone] Markus Finley MD [address] [place] [address] 11/15/2024 2:00 PM STUD BEEF CATTLE FARMER [facility]ment [facility] [address] [place] [phone] Markus Finley MD [address] [place] [address] Discharge Disposition: Discharged to home or Selfcare documented as of this encounter Visit Diagnoses Not on filedocumented in this encounter Care Teams Contact Officer Relationship Specialty Start Date End Date Pritesh Chu MD [address] [place] [address] PCP - General Family Medicine 04/18/24 Markus Finley MD [address] [place] [address] Consulting Physician Medical Oncology 04/18/24 documented as of this encounter
--- OUTSIDE RECORDS SUMMARY | 2024-10-27 02:47 | XMS_ITS | Encounter Summary ---
Author Organization [facility] Address [address] [place] [address] Phone Care Team Providers Care Temporary Staff Accountant Name Role Phone Pritesh Chu MD Primary Care Provider [phone] Markus Finley MD Unavailable [phone] Reason for Visit * Reason Comments Follow-up Melanoma Encounter Details Date Type Department Care Team (Latest Contact Info) Description 08/01/2024 2:20 PM CDT [facility] [address] [place] [phone] Markus Finley MD [address] [place] [address] Other specified hypothyroidism (Primary Dx); Diarrhea due [...] = 0.6 oz pur e alcohol) [facility] Utilities Answer Date Recorded In [...] any time in the past 12 m [facility], were you homeless or [...] performance status. Patient was recently admitted to [facility] from 07/25/24 through 07/30/24 for ALEXX and [...] IMAGING STUDIES: CT abdomen pelvis done at [facility] on 06/27/2024 No evidence of appendicitis. No [...] Plan: 2. Patient will be transported to [facility] ED for evaluation and activation of sepsis [...] called Chris. Patient was recently admitted to [facility] from 07/25/24 through 07/30/24 for AKIand hypokalemia [...] IMAGING STUDIES: CT abdomen pelvis done at [facility] on 06/27/2024 No evidence of appendicitis. No [...] hours 2. Patient will be transported to [facility] ED for evaluation and activation of sepsis [...] Contact Info) Description 11/15/2024 1:00 PM MANAGER OF ALLIED HEALTH SERVICES Lab [facility] Services [address] [place] [address] Markus Finley MD [address] [place] [address] 11/15/2024 2:00 PM MANAGER OF ALLIED HEALTH SERVICES [facility]ment [facility] [address] [place] [address] Markus Finley MD [address] [place] [address] Discharge Disposition: Discharged to home or Selfcare [...] documented as of this encounter Care Teams Temporary Staff Accountant Relationship Specialty Start Date End Date Pritesh Chu MD [address] [address] PCP - General Family Medicine 04/18/24 Markus Finley MD [address] [place] [address] Consulting Physician Medical Oncology 04/18/24 documented as of this encounter
--- OUTSIDE RECORDS SUMMARY | 2024-10-27 02:47 | XMS_ITS | Encounter Summary ---
Author Organization [facility] Address [address] [place] [address] Phone Care Team Providers Care District Superintendent Name Role Phone Pritesh Chu MD Primary Care Provider [phone] Markus Finley MD Unavailable [phone] Reason for Visit * Reason Onset Date Comments Follow-up 08/01/2024 Encounter Details Date Type Department Care Team (Late st Contact Info) Description 08/01/2024 Post Discharge Follow-up [facility] Nursing Services [address] [place] [address] Arline Rojo, RN [place] Social History Tobacco Use Types Packs/Day Years Used Date Smoking Tobacco: Former Cigarettes 0.5 8.5 S tarted: 04/18/2016 Smokeless Tobacco: Never Alcohol Use Standard Drinks/Week Comments Yes 0 (1 standard drink = 0.6 oz pur e alcohol) [facility] Utilities Answer Date Recorded In [...] How often do you attend druze or church serv ices? Patient declined 08/01/2024 [...] medical care, and heating? Patient declined 08/01/2024 [facility] of Occupat ional [facility] - Occupational Stress Questionnaire Answer Date [...] in the past 12 m [facility], were you homeless or living in [...] st Contact Info) Description 11/15/2024 1:00 PM FUSING LINE INSPECTOR [facility] [address] [place] [address] Markus Finley MD [address] [place] [address] 11/15/2024 2:00 PM FUSING LINE INSPECTOR [facility]ment [facility] [address] [place] [address] Markus Finley MD [address] [place] [address] Discharge Disposition: Discharged to home or Selfcare documented as of this encounter Visit Diagnoses Not on filedocumented in this encounter Additional Health Concerns Infection Onset Date Last Indicated Resolved Time C. difficile Rule-Out 08/01/2024 08/01/20242023 7:56 PM CDT documented as of this encounter Care Teams District Superintendent Relationship Specialty Start Date End Date Pritesh Chu MD [address] [address] PCP - General Family Medicine 04/18/24 Markus Finley MD [address] [place] [address] Consulting Physician Medical Oncology 04/18/24 documented as of this encounter
--- OUTSIDE RECORDS SUMMARY | 2024-10-27 02:47 | XMS_ITS | Encounter Summary ---
Author Organization [facility] Address [address] [facility] [place] [address] Phone Care Team Providers Care Mechanical Apprentice Name Role Phone Pritesh Chu MD Primary Care Provider [phone] Markus Finley MD Unavailable [phone] Encounter Details Date Type Department Care Team (Late st Contact Info) Description 08/01/2024 10:30 AM CDT Clinical Support [facility] Oncology Services [address] [place] [phone] Markus Finley MD [address] [place] [address] Diarrhea due to drug (Primary Dx); Metastatic [...] Recorded In the past 12 months has [employer], [employer], or [employer] threatened to shut off services in your home? Patient declined 08/01/2024 Social Connection and Isolation Panel [NHANES] A nswer Date Recorded In a typical week, how many times do you talk on the phone with family, friends, or neighbors? Patient declined 08/01/2024 How often do you get togethe r with friends or relatives? Patient declined 08/01/2024 How often do you attend lutheran or catholic serv ices? Patient declined 08/01/2024 Do [...] care, and heating? Patient declined 08/01/2024 [facility] of Occupat ional Health - [...] time in the past 12 m [facility], were you homeless or living [...] CDT Updated [facility] order with specimen from [facility] in 08/2023. documented in this encounter Plan of Treatment Upcoming Encounters Date Type Department Care Team (Late st Contact Info) Description 11/15/2024 1:00 PM GENERAL CONTRACTOR Lab [facility] [address] [place] [address] Markus Finley MD [address] [place] [address] 11/15/2024 2:00 PM GENERAL CONTRACTOR [facility]ointment [facility] [address] [place] [address] Markus Finley MD [address] [place] [address] Discharge Disposition: Discharged to home or Selfcare [...] AUTO DIFFERENTIAL (08/01/2024 11:05 AM CDT) Pathologist [facility] WBC 17.32(H) 4.00 - 12.00 10(3)/mcL 08/01/2024 11:18 AM CDT [facility] RBC 6.09(H) 3.80 - 5.30 10(6)/mcL 08/01/2024 11:18 AM CDT [facility] HEMOGLOBIN (HGB) 18.0(H) 12.0 - 15.8 g/dL 08/01/2024 11:18 AM CDT [facility] HEMATOCRIT (HCT) 51.2(H) 36.0 - 47.0 % 08/01/2024 11:18 AM CDT [facility] MCV 84.1 82.0 - 96.0 fL 08/01/2024 11:18 AM CDT [facility] MCH 29.6 26.0 - 34.0 pg 08/01/2024 11:18 AM CDT [facility] MCHC 35.2 31.0 - 36.0 g/dL 08/01/2024 11:18 AM CDT [facility] PLATELET COUNT 472(H) 140 - 440 10(3)/mcL 08/01/2024 11:18 AM CDT [facility] RDW 13.8 11.8 - 15.5 % 08/01/2024 11:18 AM CDT [facility] MPV 9.8 9.7 - 12.4 fL 08/01/2024 11:18 AM CDT [facility] NEUTROPHILS 86.8(H) 47.0 - 73.0 % 08/01/2024 11:18 AM CDT [facility] LYMPHOCYTES 8.5(L) 18.0 - 42.0 % 08/01/2024 11:18 AM CDT [facility] MONOCYTES 4.0 4.0 - 12.0 % 08/01/2024 11:18 AM CDT [facility] EOSINOPHILS 0.1 0.0 - 5.0 % 08/01/2024 11:18 AM CDT [facility] BASOPHILS 0.6 0.0 - 1.0 % 08/01/2024 11:18 AM CDT [facility] ABSOLUTE NEUTROPHILS 15.03(H) 1.60 - 7.70 10(3)/[facility] 08/01/2024 11:18 AM CDT [facility] ABSOLUTE LYMPHOCYTES 1.47 1.30 - 3.20 10(3)/[facility] 08/01/2024 11:18 AM CDT [facility] ABSOLUTE MONOCYTES 0.70 0.20 - 1.00 10(3)/[facility] 08/01/2024 11:18 AM CDT [facility] ABSOLUTE EOSINOPHIL 0.01 0.00 - 0.40 10(3)/[facility] 08/01/2024 11:18 AM CDT [facility] ABSOLUTE BASOPHILS 0.11(H) 0.00 - 0.10 10(3)/[facility] 08/01/2024 11:18 AM CDT [facility] NRBC PER 100 WBC 0 08/01/20 11:18 AM CDT [facility] Blood Venipuncture / Unknown 08/01/2024 11:05 AM CDT 08/01/2024 11:05 AM CDT us Markus Finley MD HEMATOLOGY ORDERABLES Fi nal Result [facility] [address] [place] [address] * (ABNORMAL) THYROID STIMULATING HORMONE (TSH) (08/01/2024 11:05 AM CDT) [facility] [place] [facility] TSH 114.336(H) 0.300 - 5.000 mIU/L 08/01/2024 12:49 PM CDT [facility] Blood Venipuncture / Unknown 08/01/2024 11:05 AM CDT 08/01/2024 11:05 AM CDT Markus Finley MD CHEMISTRY ORDERABLES Fin al Result [facility] [address] [place] [address] * (ABNORMAL) CMP (COMPREHENSIVE METABOLIC PANEL) (08/01/2024 11:05 AM CDT) [facility] SODIUM 127(L) 136 - 145 mmol/L 08/01/2024 12:10 PM CDT [facility] POTASSIUM 3.3(L) 3.5 - 5.1 mmol/L 08/01/2024 12:10 PM CDT [facility] CHLORIDE 91(L) 98 - 107 mmol/L 08/01/2024 12:10 PM CDT [facility] CO2, VENOUS 15(L) 22 - 30 mmol/L 08/01/2024 12:10 PM CDT [facility] ANION GAP 24.3(H) <18.0 mmol/L 08/01/2024 12:10 PM CDT [facility] GLUCOSE 157(H) 70 - 99 mg/dL 08/01/2024 12:10 PM CDT [facility] BUN 29(H) 5 - 18 mg/dL 08/01/2024 12:10 PM CDT [facility] CREATININE, BLOOD 4.24(H) 0.60 - 1.00 mg/dL 08/01/2024 12:10 PM CDT [facility] BUN/CREATININE RATIO 7(L) 12 - 20 ratio 08/01/2024 12:10 PM CDT [facility] TOTAL PROTEIN 9.0(H) 6.3 - 8.2 g/dL 08/01/2024 12:10 PM T [facility] ALBUMIN 4.7 3.5 - 5.0 g/dL 08/01/2024 12:10 PM [facility] A/G RATIO 1.1 1.0 - 2.2 08/01/2024 12:10 PM T [facility] CALCIUM 10.6(H) 8.7 - 10.5 mg/dL 08/01/2024 12:10 PM CDT [facility] T BILI 0.7 0.2 - 1.2 mg/dL 08/01/2024 12:10 PM CDT [facility] SGOT (AST) 22 5 - 34 U/L 08/01/2024 12:10 PM [facility] SGPT (ALT) 53 0 - 55 U/L 08/01/2024 12:10 PM [facility] ALKALINE PHOSPHATASE 85 40 - 150 U/L 08/01/2024 12:10 PM [facility] IS THE PATIENT REQUIRED TO BE FASTING? No 08/01/2024 12:10 PM T [facility] GFR, ESTIMATED 14(L) >=60 08/01/2024 12:10 PM [facility] Comment: Creatinine Clearance is the preferred criteria for selecting drug dose adjustments in renally impaired patients. ??The GFR is provided as additional pertinent clinical information. GFR is reported in mL/min/1.73 sq m. Calculation based on the Chronic Kidney Disease Epidemiology Collaboration (CKD- EPI) equation refit without adjustment for race. GFR, EST. 16(L) >=60 024 12:10 PM [facility] GFR, EST. NONAFRICAN 13(L) >=60 08/01/2024 12:10 PM [facility] Blood Venipuncture / Unknown 08/01/2024 11:05 AM CDT 08/01/2024 11:05 AM CDT Markus Finley MD CHEMISTRY ORDERABLES Fin al Result [facility] [address] [place] [address] * (ABNORMAL) MAGNESIUM (MG) (08/01/2024 11:05 AM CDT) MAGNESIUM 2.7(H) 1.6 - 2.6 mg/dL 08/01/2024 12:10 PM CDT [facility] Blood Venipuncture / Unknown 08/01/2024 11:05 AM CDT 08/01/2024 11:05 AM CDT Markus Finley MD CHEMISTRY ORDERABLES Fin al Result Performing Organization Address City/[facility] Co de Phone Number [facility] [address] [place] [address] documented in this encounter Visit Diagnoses Diagnosis [...] documented as of this encounter Care Teams Mechanical Apprentice Relationship Specialty Start Date End Date Pritesh Chu MD [address] [address] PCP - General Family Medicine 04/18/24 Markus Finley MD [address] [place] [address] Consulting Physician Medical Oncology 04/18/24 documented as of this encounter
--- OUTSIDE RECORDS SUMMARY | 2024-10-27 02:47 | XMS_ITS | Encounter Summary ---
Author Organization [facility] Address [address] [facility] [place] [address] Phone Care Team Providers Care Ferry Hand Name Role Phone Pritesh Chu MD Primary Care Provider [phone] Markus Finley MD Unavailable [phone] Encounter Details Date Type Department Care Team (Late st Contact Info) Description 07/25/2024 10:30 AM CDT Clinical Support [facility] Oncology Services [address] [place] [id number] Markus Finley MD [address] [place] [address] Metastatic melanoma (HCC) (Primary Dx) Discharge Disposition: Discharged to home or Selfcare Social History Tobacco Use Types Packs/Day Years Used Date Smoking Tobacco: Former Cigarettes 0.5 8.5 S tarted: 04/18/2016 Smokeless Tobacco: Never Alcohol Use Standard Drinks/Week Comments Yes 0 (1 standard drink = 0.6 oz pur e alcohol) [facility] Utilities Answer Date Recorded In the past 12 months has [employer], gas, oil, or water [employer] threatened to shut off services in your home? Patient declined 07/25/2024 Social Connection and Isolation Panel [NHANES] A nswer Date Recorded In a typical week, how many times do you talk on the phone with family, friends, or neighbors? Patient declined 07/25/2024 How often do you get togethe r with friends or relatives? Patient declined 07/25/2024 How often do you attend anabaptist or buddhism serv ices? Patient declined 07/25/2024 [...] medical care, and heating? Patient declined 07/25/2024 [facility]at ional [facility] [...] a senior living (including now)? Patient declined 07/25/2024 Comments No [...] for since Tuesday. Pt was admitted to [facility] and discharged yesterday. Pt is not feeling any better, unable to eat or drink. Labs drawn from port x1 attempt. Flushed easily with NS and with good blood return. Orders for 1L IVF and antiemetics placed per [facility]. Critical potassium 2.5 called to infusion center. [...] st Ronald Info) Description 11/15/2024 1:00 PM SALES AND SERVICE AGENT Lab [facility] Laboratory Services [address] [place] [address] Markus Finley MD [address] [place] [address] 11/15/2024 2:00 PM SALES AND SERVICE AGENT Appointment [facility] MRI [address] [place] [address] Markus Finley MD [address] [place] [address] Discharge Disposition: Discharged to home or Selfcare [...] 1.0 % 07/25/2024 11:29 AM CDT [facility] NEUTROPHILS % 72.0 47.0 - 73.0 % 07/25/2024 11:29 AM CDT [facility] LYMPHOCYTES % 19.0 18.0 - 42.0 % 07/25/2024 11:29 AM CDT [facility] MONOCYTES % 8.0 4.0 - 12.0 % 07/25/2024 11:29 AM CDT [facility] NEUTROPHILS ABSOLUTE 7.01 1.60 - 7.70 10(3)/[facility] 07/25/2024 11:29 AM CDT [facility] LYMPHOCYTES ABSOLUTE 1.82 1.30 - 3.20 10(3)/mcL 07/25/2024 11:29 AM CDT [facility] MONOCYTES ABSOLUTE 0.77 0.20 - 1.00 10(3)/[facility] 07/25/2024 11:29 AM CDT [facility] TOXIC GRANULATION 107/25/2024 11:29 AM CDT [facility] VACUOLATED PMN 107/25/2024 11:29 AM CDT [facility] LARGE PLATELETS 11:29 AM CDT [facility] RBC MORPH STATUS Normal 07/25/20 11:29 AM CDT [facility] Blood Sub-Q Port Venou s Access Device (Medi-Port, Implanted Port) / Unknown 07/25/2024 11:02 AM CDT 07/25/2024 11:02 AM CDT us Markus Finley MD HEMATOLOGY ORDERABLES Fi nal Result [facility] [address] [place] [address] * (ABNORMAL) CBC WITH AUTO DIFFERENTIAL (07/25/2024 11:02 AM CDT) WBC 9.60 4.00 - 12.00 10(3)/mcL 07/25/2024 11:29 AM CDT [facility] RBC 5.98(H) 3.80 - 5.30 10(6)/[facility] 07/25/2024 11:29 AM CDT [facility] HEMOGLOBIN (HGB) 17.6(H) 12.0 - 15.8 g/dL 07/25/2024 11:29 AM CDT [facility] HEMATOCRIT (HCT) 50.8(H) 36.0 - 47.0 % 07/25/2024 11:29 AM CDT [facility] MCV 84.9 82.0 - 96.0 fL 07/25/2024 11:29 AM CDT [facility] MCH 29.4 26.0 - 34.0 pg 07/25/2024 11:29 AM CDT [facility] MCHC 34.6 31.0 - 36.0 g/dL 07/25/2024 11:29 AM CDT [facility] PLATELET COUNT 401 140 - 440 10(3)/mcL 07/25/2024 11:29 AM CDT [facility] RDW 14.4 11.8 - 15.5 % 07/25/2024 11:29 AM CDT [facility] MPV 9.6(L) 9.7 - 12.4 fL 07/25/2024 11:29 AM CDT [facility] NRBC PER 100 WBC 0 07/25/2024 11:29 AM CDT [facility] RESULTS ARE CONSISTENT WITH PERIPHERAL SMEAR REVIEW Yes 07/25/2024 11:29 AM CDT [facility] Blood Sub-Q Port Venou s Access Device (Medi-Port, Implanted Port) / Unknown 07/25/2024 11:02 AM CDT 07/25/2024 11:02 AM CDT us Markus Finley MD HEMATOLOGY ORDERABLES Fi nal Result [facility] [address] [place] [address] * (ABNORMAL) THYROID STIMULATING HORMONE (TSH) (07/25/2024 11:02 AM CDT) TSH 135.164(H) 0.300 - 5.000 mIU/L 07/25/2024 12:22 PM CDT [facility] Blood Sub-Q Port Venou s Access Device (Medi-Port, Implanted Port) / Unknown 07/25/2024 11:02 AM CDT 07/25/2024 11:02 AM CDT Markus Finley MD CHEMISTRY ORDERABLES Fin al Result [facility] [address] [place] [address] * (ABNORMAL) CMP (COMPREHENSIVE METABOLIC PANEL) (07/25/2024 11:02 AM CDT) SODIUM 134(L) 136 - 145 mmol/L 07/25/2024 11:37 AM CDT [facility] POTASSIUM 2.5(LL) 3.5 - 5.1 mmol/L 07/25/2024 11:37 AM CDT [facility] CHLORIDE 93(L) 98 - 107 mmol/L 07/25/2024 11:37 AM CDT [facility] CO2, VENOUS 22 22 - 30 mmol/L 07/25/2024 11:37 AM CDT [facility] ANION GAP 21.5(H) <18.0 mmol/L 07/25/2024 11:37 AM CDT [facility] GLUCOSE 153(H) 70 - 99 mg/dL 07/25/2024 11:37 AM CDT [facility] BUN 30(H) 5 - 18 mg/dL 07/25/2024 11:37 AM CDT [facility] CREATININE, BLOOD 3.31(H) 0.60 - 1.00 mg/dL 07/25/2024 11:37 AM CDT [facility] BUN/CREATININE RATIO 9(L) 12 - 20 ratio 07/25/2024 11:37 AM CDT [facility] TOTAL PROTEIN 8.4(H) 6.3 - 8.2 g/dL 07/25/2024 11:37 AM T [facility] ALBUMIN 4.5 3.5 - 5.0 g/dL 07/25/2024 11:37 AM [facility] A/G RATIO 1.2 1.0 - 2.2 07/25/2024 11:37 AM [facility] CALCIUM 10.2 8.7 - 10.5 mg/dL 07/25/2024 11:37 AM [facility] T BILI 0.9 0.2 - 1.2 mg/dL 07/25/2024 11:37 AM [facility] SGOT (AST) 14 5 - 34 U/L 07/25/2024 11:37 AM [facility] SGPT (ALT) 45 0 - 55 U/L 07/25/2024 11:37 AM [facility] ALKALINE PHOSPHATASE 90 40 - 150 U/L 07/25/2024 11:37 AM [facility] IS THE PATIENT REQUIRED TO BE FASTING? No 07/25/2024 11:37 AM [facility] GFR, ESTIMATED 19(L) >=60 07/25/2024 11:37 AM [facility] Comment: Creatinine Clearance is the preferred criteria for selecting drug dose adjustments in renally impaired patients. ??The GFR is provided as additional pertinent clinical information. GFR is reported in mL/min/1.73 sq m. Calculation based on the Chronic Kidney Disease Epidemiology Collaboration (CKD- EPI) equation refit without adjustment for race. GFR, EST. 21(L) >=60 024 11:37 AM [facility] GFR, EST. NONAFRICAN 17(L) >=60 07/25/2024 11:37 AM [facility] Blood Sub-Q Port Venou s Access Device (Medi-Port, Implanted Port) / Unknown 07/25/2024 11:02 AM CDT 07/25/2024 11:02 AM CDT Markus Finley MD CHEMISTRY ORDERABLES Fin al Result Performing Organization Address City/[facility]/ZIP Co de Phone Number [facility] [address] [place] [address] * MAGNESIUM (MG) (07/25/2024 11:02 AM CDT) MAGNESIUM 2.1 1.6 - 2.6 mg/dL 07/25/2024 11:37 AM CDT [facility] Blood Sub-Q Port Venou s Access Device (Medi-Port, Implanted Port) / Unknown 07/25/2024 11:02 AM CDT 07/25/2024 11:02 AM CDT Markus Finley MD CHEMISTRY ORDERABLES Fin al Result Performing Organization Address [facility] Co de Phone Number [facility] [address] [place] [address] documented in this encounter Visit Diagnoses Diagnosis [...] mg documented in this encounter Care Teams Ferry Hand Relationship Specialty Start Date End Date Pritesh Chu MD [address] [address] PCP - General Family Medicine 04/18/24 Markus Finley MD [address] [place] [address] Consulting Physician Medical Oncology 04/18/24 documented as of this encounter
--- OUTSIDE RECORDS SUMMARY | 2024-10-27 02:47 | XMS_ITS | Encounter Summary ---
Author Organization [employer] Care Team Providers Care Electronics Department Manager Name Role Phone Pritesh Chu MD Primary Care Provider [phone] Markus Finley MD Unavailable [phone] Encounter Details Date Type Department Care Team (Latest Contact Info) Description 08/06/2024 Travel Social History Tobacco Use Types Packs/Day Years Used Date Smoking Tobacco: Former Cigarettes 0.5 8.5 S tarted: 04/18/2016 Smokeless Tobacco: Never Alcohol Use Standard Drinks/Week Comments Yes 0 (1 standard drink = 0.6 oz pur e alcohol) [facility] Utilities Answer Date Recorded In the past 12 months has [employer], gas, oil, or water [employer] threatened to shut off services in your home? Patient declined 08/01/2024 Social Connection and Isolation Panel [NHANES] A nswer Date Recorded In a typical week, how many times do you talk on the phone with family, friends, or neighbors? Patient declined 08/01/2024 How often do you get togethe r with friends or relatives? Patient declined 08/01/2024 How often do you attend restorationist or gnosticism serv ices? Patient declined 08/01/2024 Do you belong to any clubs o r organizations such as restorationist groups, unions, fraternal or athletic groups, or [...] medical care, and heating? Patient declined 08/01/2024 [facility] of Occupat ional [facility] - Occupational Stress Questionnaire Answer [...] st Contact Info) Description 11/15/2024 1:00 PM FLUMER Lab [facility] [address] [place] [address] Markus Finley MD [address] [place] [address] 11/15/2024 2:00 PM FLUMER [facility]ment [facility] [address] [place] [address] Markus Finley MD [address] [place] [address] Discharge Disposition: Discharged to home or Selfcare documented as of this encounter Visit Diagnoses Not on filedocumented in this encounter Care Teams Electronics Department Manager Relationship Specialty Start Date End Date Pritesh Chu MD [address] [place] [address] PCP - General Family Medicine 04/18/24 Markus Finley MD [address] [place] [address] Consulting Physician Medical Oncology 04/18/24 documented as of this encounter
--- OUTSIDE RECORDS SUMMARY | 2024-10-27 02:48 | XMS_ITS | Encounter Summary ---
Author Organization [facility] Address [address] [facility] [place] [address] Phone Care Team Providers Care Slide Developer Name Role Phone Pritesh Chu MD Primary Care Provider [phone] Markus Finley MD Unavailable [phone] Encounter Details Date Type Department Care Team (Latest Contact Info) Description 07/10/2024 1:00 PM CDT Clinical Support [facility] Oncology Services [address] [place] [phone] Jenn Medellin [place], PAC [address] [place] [address] Metastatic melanoma (HCC); Hypokalemia due to excessive gastrointestinal loss of potassium Discharge Disposition: Discharged to home or Selfcare Social History Tobacco Use Types Packs/Day Years Used Date Smoking Tobacco: Former Cigarettes 0.5 8.5 S tarted: 04/18/2016 Smokeless Tobacco: Never Alcohol Use Standard Drinks/Week Comments Yes 0 (1 standard drink = 0.6 oz pur e alcohol) [facility] Utilities Answer Date Recorded In the past 12 months has [employer], gas, oil, or water company threatened to [...] any clubs o r organizations such as episcopal groups, unions, fraternal or athletic groups, or [...] and heating? Not hard at all 06/27/2024 [facility] of Occupat ional [facility] - Occupational Stress Questionnaire Answer Date [...] living in a retirement (including now)? No 06/27/2024 Comments No Sex [...] st Contact Info) Description 11/15/2024 1:00 PM ENGINEER INTERNSHIP Lab [facility] [address] [place] [address] Markus Finley MD [address] [place] [address] 11/15/2024 2:00 PM ENGINEER INTERNSHIP Appointment [facility] [address] [place] [address] Markus Finley MD [address] [place] [address] Discharge Disposition: Discharged to home or Selfcare documented as of this encounter Procedures Procedure Name Priority Date/Time Associated Diagnosis Comments CMP (COMPREHENSIVE METABOLIC PANEL) STAT 07/10/2024 1:28 PM CDT Metastatic melanoma (HCC) documented in this encounter Results * (ABNORMAL) CMP (COMPREHENSIVE METABOLIC PANEL) (07/10/2024 1:28 PM CDT) SODIUM 133(L) 136 - 145 mmol/L 07/10/2024 1:53 PM CDT [facility] POTASSIUM 3.9 3.5 - 5.1 mmol/L 07/10/2024 1:53 PM CDT [facility] CHLORIDE 109(H) 98 - 107 mmol/L 07/10/2024 1:53 PM CDT [facility] CO2, VENOUS 18(L) 22 - 30 mmol/L 07/10/2024 1:53 PM CDT [facility] ANION GAP 9.9 <18.0 mmol/L 07/10/2024 1:53 PM CDT [facility] GLUCOSE 143(H) 70 - 99 mg/dL 07/10/2024 1:53 PM CDT [facility] BUN 4(L) 5 - 18 mg/dL 07/10/2024 1:53 PM CDT [facility] CREATININE, BLOOD 0.85 0.60 - 1.00 mg/dL 07/10/2024 1:53 PM CDT [facility] BUN/CREATININE RATIO 5(L) 12 - 20 ratio 07/10/2024 1:53 PM CDT [facility] TOTAL PROTEIN 5.8(L) 6.3 - 8.2 g/dL 07/10/2024 1:53 PM CDT [facility] ALBUMIN 3.3(L) 3.5 - 5.0 g/dL 07/10/2024 1:53 PM CDT [facility] A/G RATIO 1.3 1.0 - 2.2 07/10/2024 1:53 PM CDT [facility] CALCIUM 8.6(L) 8.7 - 10.5 mg/dL 07/10/2024 1:53 PM CDT [facility] T BILI 0.4 0.2 - 1.2 mg/dL 07/10/2024 1:53 PM CDT [facility] SGOT (AST) 20 5 - 34 U/L 07/10/2024 1:53 PM CDT [facility] SGPT (ALT) 44 0 - 55 U/L 07/10/2024 1:53 PM CDT [facility] ALKALINE PHOSPHATASE 74 40 - 150 U/L 07/10/2024 1:53 PM CDT [facility] IS THE PATIENT REQUIRED TO BE FASTING? No 07/10/2024 1:53 PM CDT [facility] GFR, ESTIMATED >60 >=60 07/10/2024 1:53 PM CDT [facility] Comment: Creatinine Clearance is the preferred criteria for selecting drug dose adjustments in renally impaired patients. ??The GFR is provided as additional pertinent clinical information. GFR is reported in mL/min/1.73 sq m. Calculation based on the Chronic Kidney Disease Epidemiology Collaboration (CKD- EPI) equation refit without adjustment for race. GFR, EST. >60 >=60 024 1:53 PM CDT [facility] GFR, EST. NONAFRICAN >60 >=60 07/10/2024 1:53 PM CDT [facility] Blood Sub-Q Port Venou s Access Device (Medi-Port, Implanted Port) / Unknown 07/10/2024 1:28 PM CDT 07/10/2024 1:28 PM CDT us Markus Finley MD CHEMISTRY ORDERABLES Jacob al Result [facility] [address] [place] [address] documented in this encounter Visit Diagnoses Diagnosis [...] mEq documented in this encounter Care Teams Slide Developer Relationship Specialty Start Date End Date Pritesh Chu MD [address] [place] [address] PCP - General Family Medicine 04/18/24 Markus Finley MD [address] [place] [address] Consulting Physician Medical Oncology 04/18/24 documented as of this encounter
--- OUTSIDE RECORDS SUMMARY | 2024-10-27 02:48 | XMS_ITS | Encounter Summary ---
Author Organization [employer] Care Team Providers Care Room Service Waiter/Waitress Name Role Phone Pritesh Chu MD Primary Care Provider [phone] Markus Finley MD Unavailable [phone] Encounter Details Date Type Department Care Team [...] Recorded In the past 12 months has [employer], gas, oil, or water [employer] threatened to shut off services in your home? Patient declined 07/23/2024 Social Connection and Isolation Panel [NHANES] A nswer Date Recorded In a typical week, how many times do you talk on the phone with family, friends, or neighbors? Patient declined 07/23/2024 How often do you get togethe r with friends or relatives? Patient declined 07/23/2024 How often do you attend synagogue or restorationism serv ices? Patient declined 07/23/2024 Do you belong to any clubs o r organizations such as synagogue groups, unions, fraternal or athletic groups, or [...] medical care, and heating? Patient declined 07/23/2024 [facility] Occupat ional Health - [...] a senior living (including now)? Patient declined 07/23/2024 Comments No [...] Contact Info) Description 11/15/2024 1:00 PM CLINICAL DATA ABSTRACTOR Lab [facility] 1 [facility] [place] [address] Markus Finley MD [address] [place] [address] 11/15/2024 2:00 PM CLINICAL DATA ABSTRACTOR [facility]ment [facility] [address] [place] [address] Markus Finley MD [address] [place] [address] Discharge Disposition: Discharged to home or Selfcare documented as of this encounter Visit Diagnoses Not on filedocumented in this encounter Additional Health Concerns Infection Onset Date Last Indicated Resolved Time COVID - 19 07/23/2024 07/23/2024 07/23/2024 10:3 8 AM CDT C. difficile Rule-Out 07/23/2024 07/24/20242023 1:43 AM CDT documented as of this encounter Care Teams Room Service Waiter/Waitress Relationship Specialty Start Date End Date Pritesh Chu MD [address] [place], [place] [id number] PCP - General Family Medicine 04/18/24 Markus Finley MD [address] [place] [address] Consulting Physician Medical Oncology 04/18/24 documented as of this encounter
--- OUTSIDE RECORDS SUMMARY | 2024-10-27 02:48 | XMS_ITS | Encounter Summary ---
Author Organization [employer] Care Team Providers Care Accounts Administrator Name Role Phone Pritesh Chu MD Primary Care Provider Markus Finley MD Unavailable [phone] Encounter Details Date Type Department Care Team (Latest Contact Info) Description 07/05/2024 Travel Social History Tobacco Use Types Packs/Day Years Used Date Smoking Tobacco: Former Cigarettes 0.5 8.5 S tarted: 04/18/2016 Smokeless Tobacco: Never Alcohol Use Standard Drinks/Week Comments Yes 0 (1 standard drink = 0.6 oz pur e alcohol) [facility] Utilities Answer Date Recorded In the past 12 months has [employer], gas, oil, or water [employer] threatened to shut off services in your [...] often do you attend chur ch or taoism services? Never 06/27/2024 Do you belong to [...] and heating? Not hard at all 06/27/2024 [facility] of Occupat ional Health - Occupational Stress [...] st Contact Info) Description 11/15/2024 1:00 PM VISUALIZATION DEVELOPER [facility] [address] [place] [address] Markus Finley MD [address] [place] [address] 11/15/2024 2:00 PM VISUALIZATION DEVELOPER [facility]ment [facility] 1 [place] [address] Markus Finley MD [address] [place] [address] Discharge Disposition: Discharged to home or Selfcare documented as of this encounter Visit Diagnoses Not on filedocumented in this encounter Care Teams Accounts Administrator Relationship Specialty Start Date End Date Pritesh Chu MD [address] [place] [address] PCP - General Family Medicine 04/18/24 Markus Finley MD [address] [place] [address] Consulting Physician Medical Oncology 04/18/24 documented as of this encounter
--- OUTSIDE RECORDS SUMMARY | 2024-10-27 02:48 | XMS_ITS | Encounter Summary ---
Author Organization [employer] Care Team Providers Care Junior Linux Administrator Name Role Phone Pritesh Chu MD Primary Care Provider [phone] Markus Finley MD Unavailable [phone] Encounter Details Date Type Department Care Team (Latest Contact Info) Description 07/10/2024 Travel Social History Tobacco Use Types Packs/Day Years Used Date Smoking Tobacco: Former Cigarettes 0.5 8.5 S tarted: 04/18/2016 Smokeless Tobacco: Never Alcohol Use Standard Drinks/Week Comments Yes 0 (1 standard drink = 0.6 oz pur e alcohol) [facility] Utilities Answer Date Recorded In the past 12 months has [employer], gas, oil, or water [employer] threatened to shut off services in your [...] often do you attend chur ch or alevism services? Never 06/27/2024 Do you belong to [...] and heating? Not hard at all 06/27/2024 [facility] of Occupat ional Health - Occupational Stress [...] st Contact Info) Description 11/15/2024 1:00 PM MUSIC RESEARCHER Lab [facility] [address] [place] [address] Markus Finley MD [address] [place] [address] 11/15/2024 2:00 PM MUSIC RESEARCHER [facility]ointment [facility] [address] [place] [address] Markus Finley MD [address] [place] [address] Discharge Disposition: Discharged to home or Selfcare documented as of this encounter Visit Diagnoses Not on filedocumented in this encounter Care Teams Junior Linux Administrator Relationship Specialty Start Date End Date Pritesh Chu MD [address] [place] [address] PCP - General Family Medicine 04/18/24 Markus Finley MD [address] [place] [address] Consulting Physician Medical Oncology 04/18/24 documented as of this encounter
--- OUTSIDE RECORDS SUMMARY | 2024-10-27 02:48 | XMS_ITS | Encounter Summary ---
Author Organization [employer] Care Team Providers Care Internal Audit Senior Manager Name Role Phone Pritesh Chu MD Primary Care Provider [phone] Markus Finley MD Unavailable [phone] Encounter Details Date Type Department Care Team (Latest Contact Info) Description 07/06/2024 Travel Social History Tobacco Use Types Packs/Day Years Used Date Smoking Tobacco: Former Cigarettes 0.5 8.5 S tarted: 04/18/2016 Smokeless Tobacco: Never Alcohol Use Standard Drinks/Week Comments Yes 0 (1 standard drink = 0.6 oz pur e alcohol) [facility] Utilities Answer Date Recorded In the past 12 months has [place] [employer], gas, oil, or water [employer] threatened to shut off services in [...] heating? Not hard at all 06/27/2024 [facility] [place] of Occupat ional Health - Occupational Stress [...] st Contact Info) Description 11/15/2024 1:00 PM FAMILY READINESS SUPPORT ASSISTANT [facility] [address] [place] [address] Markus Finley MD [address] [place] [address] 11/15/2024 2:00 PM FAMILY READINESS SUPPORT ASSISTANT [facility]ment [facility] 1 [place] [address] Markus Finley MD [address] [place] [address] Discharge Disposition: Discharged to home or Selfcare documented as of this encounter Visit Diagnoses Not on filedocumented in this encounter Care Teams Internal Audit Senior Manager Relationship Specialty Start Date End Date Pritesh Chu MD [address] [place] [address] PCP - General Family Medicine 04/18/24 Markus Finley MD [address] [place] [address] Consulting Physician Medical Oncology 04/18/24 documented as of this encounter
--- OUTSIDE RECORDS SUMMARY | 2024-10-27 02:48 | XMS_ITS | Encounter Summary ---
Author Organization [facility] Address [address] [place] [address] Phone Care Team Providers Care Information Security Director Name Role Phone Pritesh Chu MD Primary Care Provider [phone] Markus Finley MD Unavailable Reason for Visit * Episode Based Medications (Routine) - Closed Specialty Diagnoses / Procedures Referred By Contross t Referred To Contact Diagnoses Metastatic melanoma (HCC) Markus Finley MD [address] [place] [address] Phone: tel: fax: [facility] [address] [place] [address] Phone: tel: fax: Referral ID Status Reason Start Date Expiration Date Visits Re quested Visits Authorized [id number] Closed 04/19/2024 1 30 Encounter Details Date Type Department Care Team (Late st Contact Info) Description 07/17/2024 1:30 PM CDT Clinical Support [facility] On[facility] Services [address] [place] [address] Markus Finley MD [address] [place] [address] Metastatic melanoma (HCC) (Primary Dx) Discharge Disposition: Discharged to home or Selfcare Social History Tobacco Use Types Packs/Day Years Used Date Smoking Tobacco: Former Cigarettes 0.5 8.5 S tarted: 04/18/2016 Smokeless Tobacco: Never Alcohol Use Standard Drinks/Week Comments Yes 0 (1 standard drink = 0.6 oz pur e alcohol) [facility] Utilities Answer Date Recorded In the [...] often do you attend chur ch or caodaism services? Never 06/27/2024 Do you belong to [...] and heating? Not hard at all 06/27/2024 [facility] of Occupat ional Health - Occupational Stress [...] any time in the past 12 m [facility], were you homeless or living [...] infusion. VS obtained. Reviewed labs completed at [place] yesterday; [place] treatment. No diarrhea for at least 3 days. Per DAVID DENNIS for treatment. Port accessed x1 attempt; flushed easily with no blood return. Medication given per MD order and pt tolerated well. PET scan ordered sent to [place] and referral updated in [facility]. Port flushed with NS and heparin per protocol and port needle removed. Port site covered with bandaid. Patient left tx area in stable conditionwith no further requests. documented in this encounter Plan of Treatment Upcoming Encounters Date Type Department Care Team (Late st Contact Info) Description 11/15/2024 1:00 PM DIVORCE ATTORNEY Lab [facility] [address] [place] [address] Markus Finley MD [address] [place] [address] 11/15/2024 2:00 PM DIVORCE ATTORNEY Appointment [facility] 1 [facility] [place] [address] Markus Finley MD [address] [place] [address] Discharge Disposition: Discharged to home or Selfcare [...] mg documented in this encounter Care Teams Information Security Director Relationship Specialty Start Date End Date Pritesh Chu MD [address] [address] PCP - General Family Medicine 04/18/24 Markus Finley MD [address] [place] [address] Consulting Physician Medical Oncology 04/18/24 documented as of this encounter
--- OUTSIDE RECORDS SUMMARY | 2024-10-27 02:48 | XMS_ITS | Encounter Summary ---
Author Organization [employer] Care Team Providers Care Cushion Former Name Role Phone Pritesh Chu MD Primary Care Provider [phone] Markus Finley MD Unavailable [phone] Encounter Details Date Type Department Care Team (Latest Contact Info) Description 07/17/2024 Travel Social History Tobacco Use Types Packs/Day Years Used Date Smoking Tobacco: Former Cigarettes 0.5 8.5 S tarted: 04/18/2016 Smokeless Tobacco: Never Alcohol Use Standard Drinks/Week Comments Yes 0 (1 standard drink = 0.6 oz pur e alcohol) [facility] Utilities Answer Date Recorded In the past 12 months has [employer], gas, oil, or water [employer] threatened to shut off services in your [...] often do you attend chur ch or yazidi services? Never 06/27/2024 Do you belong to [...] and heating? Not hard at all 06/27/2024 [facility] [place] of Occupat ional Health - Occupational Stress [...] st Contact Info) Description 11/15/2024 1:00 PM GREENKEEPER [facility] 1 [place] [address] Markus Finley MD [address] [place] [address] 11/15/2024 2:00 PM GREENKEEPER [facility]ment [facility] 1 [place] [address] Markus Finley MD [address] [place] [address] Discharge Disposition: Discharged to home or Selfcare documented as of this encounter Visit Diagnoses Not on filedocumented in this encounter Care Teams Cushion Former Relationship Specialty Start Date End Date Pritesh Chu MD [address] [place] [address] PCP - General Family Medicine 04/18/24 Markus Finley MD [address] [place] [address] Consulting Physician Medical Oncology 04/18/24 documented as of this encounter
--- OUTSIDE RECORDS SUMMARY | 2024-10-27 02:48 | XMS_ITS | Encounter Summary ---
Author Organization [facility] Address [address] [place] [address] Phone Care Team Providers Care Roll Slicing Machine Tender Name Role Phone Pritesh Chu MD Primary Care Provider [phone] Markus Finley MD Unavailable [phone] Reason for Referral * Radiology Services (Routine) - Closed Specialty Diagnoses / Procedures Referred By Delbert villareal Referred To Contact Radiology Diagnoses Metastatic melanoma (HCC) Procedures PET CT TUMOR IMAGING SKULL BASE TO MID THIGH PET CT TUMOR IMAGING SKULL BASE TO MID THIGH Maruks Finley MD [address] [place] [address] Phone: tel: fax: [facility] [address] [place] [phone] Phone: tel: fax: Referral ID Status Reason Start Date Expiration Date Visits Re quested Visits Authorized [id number] Closed 07/12/2024 1 1 Reason for Visit * Reason Comments 1 week f/u * Episode Based Medications (Routine) - Closed Specialty Diagnoses / Procedures Referred By Delbert t Referred To Contact Diagnoses Metastatic melanoma (HCC) Markus Finley MD [address] [place] [address] Phone: tel: fax: [facility] [address] [place] [phone] Phone: tel: fax: Referral ID Status Reason Start Date Expiration Date Visits Re quested Visits Authorized [id number] Closed 04/19/2024 1 30 Encounter Details Date Type Department Care Team (Late st Contact Info) Description 07/12/2024 10:20 AM CDT Office Visit [facility] Oncology Services [address] [place] [address] [place] [address] [place] [address] Metastatic melanoma (HCC) (Primary Dx); Immunotherapy; [...] Recorded In the past 12 months has [employer], oil, or water [employer] threatened to shut off services in your home? Patient declined 08/01/2024 Social Connection and Isolation Panel [NHANES] A nswer Date Recorded In a typical week, how many times do you talk on the phone with family, friends, or neighbors? Patient declined 08/01/2024 How often do you get togethe r with friends or relatives? Patient declined 08/01/2024 How often do you attend adventist or anabaptist serv ices? Patient declined 08/01/2024 [...] declined 08/01/2024 [facility] of Occupat ional [facility] - Occupational Stress Questionnaire Answer Date [...] any time in the past 12 m [facility], were you homeless or living [...] Assessment Author Patient declined 08/01/2024 5:03 PM NLEIAT Elliott Hdz RN * Question Answer Date [...] complete labs Tuesday prior to treatment at [facility]. Patient will remain on current interventions; Prednisone, [...] go to exchange after hours. 9. Check [id number] in the blood today. Tempus XT on [...] complete labs Tuesday prior to treatment at [facility]. Patient will remain on current interventions; Prednisone, [...] go to exchange after hours. 9. Check [id number] in the blood today. Tempus XT on [...] for Markus Moses MD. 09/16/2024, 10:44 AM MORTGAGE LOAN SPECIALIST The documentation recorded by the scribe was completed while in the exam room with me and the patient. The documentation accurately reflects the service I personally performed and the decisions made by me. I have confirmed and edited the documentation as necessary. Markus Finley MD 09/16/2024, 10:44 AM MORTGAGE LOAN SPECIALIST GAGE LOAN SPECIALIST documented in this encounter Miscellaneous Notes * [...] st Contact Info) Description 11/15/2024 1:00 PM MORTGAGE LOAN SPECIALIST [facility] 1 [place] [address] Markus Finley MD [address] [place] [address] 11/15/2024 2:00 PM MORTGAGE LOAN SPECIALIST [facility]ment [facility] 1 [place] [address] Markus Finley MD [address] [place] [address] Discharge Disposition: Discharged to home or Selfcare [...] Diarrhea documented in this encounter Care Teams Roll Slicing Machine Tender Relationship Specialty Start Date End Date Pritesh Chu MD [address] [place] [address] PCP - General Family Medicine 04/18/24 Markus Finley MD [address] [place] [address] Consulting Physician Medical Oncology 04/18/24 documented as of this encounter
--- OUTSIDE RECORDS SUMMARY | 2024-10-27 02:48 | XMS_ITS | Encounter Summary ---
Author Organization [employer] Care Team Providers Care Garbage Worker Name Role Phone Pritesh Chu MD Primary Care Provider [phone] Markus Finley MD Unavailable [phone] Encounter Details Date Type Department Care Team (Latest Contact Info) Description 07/12/2024 Travel Social History Tobacco Use Types Packs/Day Years Used Date Smoking Tobacco: Former Cigarettes 0.5 8.5 S tarted: 04/18/2016 Smokeless Tobacco: Never Alcohol Use Standard Drinks/Week Comments Yes 0 (1 standard drink = 0.6 oz pur e alcohol) [facility] Utilities Answer Date Recorded In the past 12 months has [employer], gas, oil, or water [employer] threatened to shut off services in your [...] and heating? Not hard at all 06/27/2024 [facility] [place] of Occupat ional Health - Occupational Stress [...] st Contact Info) Description 11/15/2024 1:00 PM OUTSOLE CEMENTER MACHINE [facility] 1 [place] [address] Markus Finley MD [address] [place] [address] 11/15/2024 2:00 PM OUTSOLE CEMENTER MACHINE [facility]ment [facility] 1 [place] [address] Markus Finley MD [address] [place] [address] Discharge Disposition: Discharged to home or Selfcare documented as of this encounter Visit Diagnoses Not on filedocumented in this encounter Care Teams Garbage Worker Relationship Specialty Start Date End Date Pritesh Chu MD [address] [address] PCP - General Family Medicine 04/18/24 Markus Finley MD [address] [place] [address] Consulting Physician Medical Oncology 04/18/24 documented as of this encounter
--- OUTSIDE RECORDS SUMMARY | 2024-10-27 02:48 | XMS_ITS | Encounter Summary ---
Author Organization [facility] Address [address] [facility] [place] [address] Phone Care Team Providers Care Drafter (Cad) Electrical Name Role Phone Pritesh Chu MD Primary Care Provider [phone] Markus Finley MD Unavailable [phone] Encounter Details Date Type Department Care Team (Latest Contact Info) Description 07/06/2024 9:30 AM CDT Clinical Support [facility] Oncology Services [address] [place] [address] Markus Finley MD [address] [place] [address] Hypokalemia due to excessive gastrointestinal loss of [...] often do you attend chur ch or adventist services? Never 06/27/2024 Do you belong to [...] and heating? Not hard at all 06/27/2024 [facility] of Occupat ional Health - [...] st Contact Info) Description 11/15/2024 1:00 PM CRITICAL CARE UNIT NURSE Lab [facility] 1 [place] [address] Markus Finley MD [address] [place] [address] 11/15/2024 2:00 PM CRITICAL CARE UNIT NURSE Appointment [facility] 1 [place] [address] Markus Finley MD [address] [place] [address] Discharge Disposition: Discharged to home or Selfcare documented as of this encounter Procedures Procedure Name Priority Date/Time Associated Diagnosis Comments CMP (COMPREHENSIVE METABOLIC PANEL) STAT 07/06/2024 10:19 AM CDT documented in this encounter Results * (ABNORMAL) CMP (Comprehensive Metabolic Panel) (07/06/2024 10:19 AM CDT) SODIUM 131(L) 136 - 145 mmol/L 07/06/2024 11:13 AM CDT [facility] POTASSIUM 2.7(LL) 3.5 - 5.1 mmol/L 07/06/2024 11:13 AM CDT [facility] CHLORIDE 105 98 - 107 mmol/L 07/06/2024 11:13 AM CDT [facility] CO2, VENOUS 17(L) 22 - 30 mmol/L 07/06/2024 11:13 AM CDT [facility] ANION GAP 11.7 <18.0 mmol/L 07/06/2024 11:13 AM [facility] GLUCOSE 143(H) 70 - 99 mg/dL 07/06/2024 11:13 AM [facility] BUN 8 5 - 18 mg/dL 07/06/2024 11:13 AM [facility] CREATININE, BLOOD 0.99 0.60 - 1.00 mg/dL 07/06/2024 11:13 AM [facility] BUN/CREATININE RATIO 8(L) 12 - 20 ratio 07/06/2024 11:13 AM [facility] TOTAL PROTEIN 6.2(L) 6.3 - 8.2 g/dL 07/06/2024 11:13 AM [facility] ALBUMIN 3.5 3.5 - 5.0 g/dL 07/06/2024 11:13 AM [facility] A/G RATIO 1.3 1.0 - 2.2 07/06/2024 11:13 AM [facility] CALCIUM 9.0 8.7 - 10.5 mg/dL 07/06/2024 11:13 AM [facility] T BILI 0.5 0.2 - 1.2 mg/dL 07/06/2024 11:13 AM [facility] SGOT (AST) 24 5 - 34 U/L 07/06/2024 11:13 AM [facility] SGPT (ALT) 50 0 - 55 U/L 07/06/2024 11:13 AM [facility] ALKALINE PHOSPHATASE 57 40 - 150 U/L 07/06/2024 11:13 AM [facility] GFR, ESTIMATED >60 >=60 07/06/2024 11:13 AM [facility] Comment: Creatinine Clearance is the preferred criteria for selecting drug dose adjustments in renally impaired patients. ??The GFR is provided as additional pertinent clinical information. GFR is reported in mL/min/1.73 sq m. Calculation based on the Chronic Kidney Disease Epidemiology Collaboration (CKD- EPI) equation refit without adjustment for race. GFR, EST. >60 >=60 024 11:13 AM CDT [facility] GFR, EST. NONAFRICAN >60 >=60 07/06/2024 11:13 AM CDT [facility] Blood Sub-Q Port Venou s Access Device (Medi-Port, Implanted Port) / Unknown 07/06/2024 10:19 AM CDT 07/06/2024 10:19 AM CDT us Markus Finley MD CHEMISTRY ORDERABLES Fin al Result [facility] [address] [place] [address] documented in this encounter Visit Diagnoses Diagnosis [...] Units documented in this encounter Care Teams Drafter (Cad) Electrical Relationship Specialty Start Date End Date Pritesh Chu MD [address] [address] PCP - General Family Medicine 04/18/24 Markus Finley MD [address] [place] [address] Consulting Physician Medical Oncology 04/18/24 documented as of this encounter
--- OUTSIDE RECORDS SUMMARY | 2024-10-27 02:49 | XMS_ITS | Encounter Summary ---
Author Organization [facility] Care Team Providers Care Client Evaluator Name Role Phone Pritesh Chu MD Primary Care Provider [phone] Markus Finley MD Unavailable [phone] Encounter Details Date Type Department Care Team [...] st Contact Info) Description 11/15/2024 1:00 PM FISH SMOKER Lab [facility] Laboratory Services 1 [place] [address] Markus Finley MD [address] [place] [address] 11/15/2024 2:00 PM FISH SMOKER Appointment [facility] MRI [address] [place] [address] Markus Finley MD [address] [place] [address] Discharge Disposition: Discharged to home or Selfcare documented as of this encounter Visit Diagnoses Not on filedocumented in this encounter Care Teams Client Evaluator Relationship Specialty Start Date End Date Pritesh Chu MD [address] [address] PCP - General Family Medicine 04/18/24 Markus Finley MD [address] [place] [address] Consulting Physician Medical Oncology 04/18/24 documented as of this encounter
--- OUTSIDE RECORDS SUMMARY | 2024-10-27 02:49 | XMS_ITS | Encounter Summary ---
Author Organization [facility] Address [address] [facility] [place] [address] Phone Care Team Providers Care Commercial Sales Representative Name Role Phone Pritesh Chu MD Primary Care Provider Markus Finley MD Unavailable [phone] Reason for Visit * Reason Comments Follow-up Encounter Details Date Type Department Care Team (Late st Contact Info) Description 05/08/2024 2:15 PM CDT [facility] [address] [place] [address] Jenn Medellin [place], PAC [address] [place] [address] Metastatic melanoma (HCC) (Primary Dx); Ringworm Discharge [...] - 05/08/2024 2:15 PM CDT May use khct-mtx-qqutlbi antifungal cream to affected area 2-3 times [...] Reviewed and discussed above results. May use sluw-bon-ghyozwg antifungal cream to affected area 2-3 times [...] as outlined above. Patient Instructions May use onzj-xib-mwmgwlb antifungal cream to affected area 2-3 times [...] st Contact Info) Description 11/15/2024 1:00 PM RECREATION PROFESSOR Lab [facility] [address] [place] [address] Markus Finley MD [address] [place] [address] 11/15/2024 2:00 PM RECREATION PROFESSOR [facility]ointment [facility] 1 [place] [address] Markus Finley MD [address] [place] [address] Discharge Disposition: Discharged to home or Selfcare documented as of this encounter Visit Diagnoses Diagnosis Metastatic melanoma (HCC)- Primary Melanoma of skin, site unspecified Ringworm Dermatophytosis of unspecified site documented in this encounter Care Teams Commercial Sales Representative Relationship Specialty Start Date End Date Pritesh Chu MD [address] [place] [address] PCP - General Family Medicine 04/18/24 Markus Finley MD [address] [place] [address] Consulting Physician Medical Oncology 04/18/24 documented as of this encounter
--- OUTSIDE RECORDS SUMMARY | 2024-10-27 02:49 | XMS_ITS | Encounter Summary ---
Author Organization [facility] Address [address] [place] [address] Phone Care Team Providers Care Displayer Merchandise Name Role Phone Pritesh Chu MD Primary Care Provider [phone] Markus Finley MD Unavailable [phone] Encounter Details Date Type Department Care Team (Late st Contact Info) Description 06/25/2024 Telephone [facility] On[facility] Services [address] [place] [address] Jennifer Bellamy, CUP MACHINE OPERATOR [place] Social History Tobacco Use Types Packs/Day Years [...] st Contact Info) Description 11/15/2024 1:00 PM FOOD SALES CLERK [facility] [address] [place] [address] Markus Finley MD [address] [place] [address] 11/15/2024 2:00 PM FOOD SALES CLERK [facility] [address] [place] [address] Markus Finley MD [address] [place] [address] Discharge Disposition: Discharged to home or Selfcare documented as of this encounter Visit Diagnoses Not on filedocumented in this encounter Care Teams Displayer Merchandise Relationship Specialty Start Date End Date Pritesh Chu MD [address] [place] [address] PCP - General Family Medicine 04/18/24 Markus Finley MD [address] [place] [address] Consulting Physician Medical Oncology 04/18/24 documented as of this encounter
--- OUTSIDE RECORDS SUMMARY | 2024-10-27 02:49 | XMS_ITS | Encounter Summary ---
Author Organization [facility] Care Team Providers Care Termite Treater Name Role Phone Pritesh Chu MD Primary Care Provider [phone] Markus Finley MD Unavailable [phone] Encounter Details Date Type Department Care Team [...] Contact Info) Description 11/15/2024 1:00 PM FOOD SAFETY MANAGER Lab [facility] Laboratory Services [address] [place] [address] Markus Finley MD [address] [place] [address] 11/15/2024 2:00 PM FOOD SAFETY MANAGER Appointment [facility] MRI [address] [place] [address] Markus Finley MD [address] [place] [address] Discharge Disposition: Discharged to home or Selfcare documented as of this encounter Visit Diagnoses Not on filedocumented in this encounter Care Teams Termite Treater Relationship Specialty Start Date End Date Pritesh Chu MD [address] [address] PCP - General Family Medicine 04/18/24 Markus Finley MD [address] [place] [address] Consulting Physician Medical Oncology 04/18/24 documented as of this encounter
--- OUTSIDE RECORDS SUMMARY | 2024-10-27 02:49 | XMS_ITS | Encounter Summary ---
Author Organization [facility] Address [address] [place] [address] Phone Care Team Providers Care Infectious Disease Technician Name Role Phone Kellen Chu MD Primary Care Provider [phone] Markus Finley MD Unavailable [phone] Reason for Visit * Auth/Cert (Routine) Specialty Diagnoses / Procedures Referred By Delbert t Referred To Contact Diagnoses Sepsis (HCC) Dehydration sepsis Bernardo Petty MD [address] [place] [address] Phone: tel: fax: Referral ID Status Reason Start Date Expiration Date Visits Re quested Visits Authorized [id number] 1 1 Encounter Details Date Type Department Care Team (Late st Contact Info) Description 06/27/2024 8:22 AM CDT - 06/30/2024 6:40 PM CDT Hospital Encounter [facility] Med Surg [address] [place] [address] [phone] Vin Petty Rajnikant K, MD [address] [place] [address] Brayan Petty MD [address] [place] [address] Fever of unknown origin Discharge Disposition: Discharged to home or Selfcare Social History Tobacco Use Types Packs/Day Years Used Date Smoking Tobacco: Former Cigarettes 0.5 8.5 S tarted: 04/18/2016 Smokeless Tobacco: Never Alcohol Use Standard Drinks/Week Comments Yes 0 (1 standard drink = 0.6 oz pur e alcohol) [facility] Utilities Answer Date Recorded [...] often do you attend chur ch or mormonism services? Never 06/27/2024 Do you belong to [...] heating? Not hard at all 06/27/2024 [facility] [employer] of Occupat ional Health - Occupational Stress [...] living in a alf (including now)? No 06/27/2024 Comments No Sex [...] MD - 06/30/2024 11:05 AM CDT [facility] DISCHARGE SUMMARY Name: Dayanara [...] found for: HGBA1C No results found for: [id number] No results found for: CPK , CPKI , CKMB , CKMBNI , CKMBPOCT , CKMBRELINDX , TROPONINI , POCTRP No results found for: FERRITIN No results found for: FOLATE No results found for: PHARTERIAL , PO2ART , USA0WEF , CO2ART , O2ART Lab Results Component [...] Thank you very much for allowing the [facility] Adult Hospitalist Service to participate [...] PM CDT Request for Documentation Clarification [facility] Dayanara Hilton ; VISIT [id number] Query Response Sent: 07/06/24 11:00 CDT From: [...] foot and GERD who was transferred from [facility] as a direct admission for further [...] cefepime, and was subsequently transferred here to [facility] for further management. * Drugs/Treatment: Maxipime; Vanco * Signs/Symptoms: SIRS Criteria DATE: 06/27 WBC: 6.20 HR: 130 RR: 20 TEMP: 100.2 (06/28) * Brayan Petty MD - 06/29/2024 9:40 PM CDT [facility] PROGRESS NOTE Dayanara Hilton is [...] results found for: PHARTERIAL , PO2ART , MMP2MXJ , CO2ART , O2ART Lab Results Component [...] LACTICA 0.9 06/29/2024 No results found for: [id number] No results found for: FERRITIN No results found for: GLUCOSEPOCT EKG: No results found. Imaging: No results found. By: Brayan Petty MD, 06/29/2024 9:40 PM CDT * Brayan Petty MD - 06/28/2024 10:12 PM CDT [facility] PROGRESS NOTE Dayanara Hilton is [...] results found for: PHARTERIAL , PO2ART , [id number] , CO2ART , O2ART Lab Results Component [...] LACTICA 1.5 06/27/2024 No results found for: [id number] No results found for: FERRITIN No results found for: GLUCOSEPOCT EKG: No results found. Imaging: No results found. By: Brayan Petty MD, 06/28/2024 10:14 PM CDT documented in this encounter H&P Notes * Debo Keenan APRN, HEALTH PHYSICS TECHNICIAN - 06/27/2024 11:52 AM CDT HOSPITALIST ADMISSION HISTORY & PHYSICAL EXAM PATIENT NAME: Dayanara Hilton, : 2000, MR#[id number] CHIEF COMPLAINT Fever, vomiting HPI Dayanara Hilton is a 24 y.o. female with a PMHx of melanoma of the left foot and GERD who was transferred from [facility] as a direct admission for further [...] Patient presented to the emergency room at [facility] for evaluation last night. She states [...] cefepime, and was subsequently transferred here to [facility] for further management. HOME MEDICATIONS: Prior to [...] HENT: Head: Normocephalic and atraumatic. Mouth/Throat: Lips: [place]. Mouth: Mucous membranes are moist. Eyes: General: [...] results found for: PHARTERIAL , CO2ART , RMR4SEK , PO2ART , O2ART Mg: No results [...] with patient and/or family and/or Power of Hardwood Floor Refinisher approximately 16 minutes. Discussed CPR/Intubation/Treatment Goals/Quality of [...] examine this patient. I agree with the COURT BAILIFF OR SHERIFF/PA???s findings and defer to the attached note. [...] started having some weakness in went to [facility]. She did have a temperature of [...] Pain and Promote Comfort Flowsheets (Taken 06/29/2024 0763) Pain Management Interventions: care clustered quiet environment facilitated relaxation techniques promoted Intervention: Provide Person-Centered Care Flowsheets (Taken 06/29/2024 1397) Trust Relationship/Rapport: care explained choices provided questions [...] periods encouraged * Interdisciplinary - Nell Lazar, [facility] - 06/29/2024 10:46 AM CDT PHARMACY PROGRESS [...] time loading dose.- this was given at [facility] prior to transfer Vancomycin continued at [...] you for this consult. For questions call [facility] [phone] Lizette Snow PharmD, BCPS 06/29/2024, 10:46 AM [...] Orlando GIRALDO. * Interdisciplinary - Nell Lazar [facility] - 06/28/2024 2:42 PM CDT PHARMACY PROGRESS [...] time loading dose.- this was given at [facility] prior to transfer Vancomycin continued at [...] you for this consult. For questions call [facility] [phone] Shaun Alva [facility] 06/28/2024, 2:42 PM CDT Addendum: [employer] [...] smartphone television * Interdisciplinary - Dunia Lorenzo [facility] - 06/27/2024 1:17 PM CDT PHARMACY PROGRESS NOTE: Vancomycin DAY # 1 Consulting Physician/Service: Debo Keenan APRN, HEALTH PHYSICS TECHNICIAN Admit Date: 06/27/2024 Patient Name: Dayanara Hilton Age: 24 y.o. Sex: female Height: 5' 6 (167.6 cm) Weight: 290 lb 11.2 oz (131.9 kg) Initial Antibiotic Indication: Debo Keenan, COURT BAILIFF OR SHERIFF, HEALTH PHYSICS TECHNICIAN Special population: None Current ABX List Includes: [...] time loading dose.- this was given at [facility] prior to transfer Vancomycin continued at [...] you for this consult. For questions call [facility] [phone] DUNIA LORENZO RPH 06/27/2024, 1:18 PM CDT [...] CDT Admitted pt as direct admit from [facility] N/V/D. A/O. Resp unlabored. RA. SL patent. Has PAC, not accessed. See flow sheet for complete assessment. Up at harish. Orders pending. Rounding continues. documented in this encounter Plan of Treatment Upcoming Encounters Date Type Department Care Team (Late st Contact Info) Description 11/15/2024 1:00 PM [facility] HOST Lab [facility] [address] [place] [address] Markus Finley MD [address] [place] [address] 11/15/2024 2:00 PM RESORT HOST Appointment [facility] [address] [place] [address] Markus Finley MD [address] [place] [address] Discharge Disposition: Discharged to home or Selfcare [...] 40 mcg/mL 06/30/2024 8:49 AM CDT [facility] Blood Venipuncture / Unknown 06/30/2024 8:11 AM CDT 06/30/2024 8:25 AM CDT Narrative [facility] - 06/30/2024 8:49 AM CDT CALL PHARMACY FOR THERAPEUTIC RANGE. Violetta Mcdonald MD CHEMISTRY ORDERABLES Fin al Result [facility] [address] [place] [address] * (ABNORMAL) Manual Differential (06/30/2024 5:35 AM CDT) Only the most recent of4 resultswithin the time period is included. BANDS % 12.0(H) 0.0 - 10.0 % 06/30/2024 6:15 AM CDT [facility] NEUTROPHILS % 59.0 47.0 - 73.0 % 06/30/2024 6:15 AM CDT [facility] LYMPHOCYTES % 20.0 18.0 - 42.0 % 06/30/2024 6:15 AM CDT [facility] MONOCYTES % 9.0 4.0 - 12.0 % 06/30/2024 6:15 AM CDT [facility] NEUTROPHILS ABSOLUTE 7.15 1.60 - 7.70 10(3)/mcL 06/30/2024 6:15 AM CDT [facility] LYMPHOCYTES ABSOLUTE 2.01 1.30 - 3.20 10(3)/mcL 06/30/2024 6:15 AM CDT [facility] MONOCYTES ABSOLUTE 0.91 0.20 - 1.00 10(3)/mcL 06/30/2024 6:15 AM CDT [facility] WBC MORPH STATUS Normal 06/30/20 6:15 AM CDT [facility] RBC MORPH STATUS Normal 06/30/20 6:15 AM CDT [facility] PLATELET STATUS Normal 6:15 AM CDT [facility] Blood Venipuncture / Unknown 06/30/2024 5:35 AM CDT 06/30/2024 5:39 AM CDT us Brayan Kang MD HEMATOLOGY ORDERABLES Final R esult [facility] [address] [place] [address] * (ABNORMAL) CBC with Auto Differential (06/30/2024 5:35 AM CDT) Only the most recent of4 resultswithin the time period is included. WBC 10.07 4.00 - 12.00 10(3)/mcL 06/30/2024 6:15 AM CDT [facility] RBC 5.49(H) 3.80 - 5.30 10(6)/mcL 06/30/2024 6:15 AM CDT [facility] HEMOGLOBIN (HGB) 16.2(H) 12.0 - 15.8 g/dL 06/30/2024 6:15 AM CDT [facility] HEMATOCRIT (HCT) 47.1(H) 36.0 - 47.0 % 06/30/2024 6:15 AM CDT [facility] MCV 85.8 82.0 - 96.0 fL 06/30/2024 6:15 AM CDT [facility] MCH 29.5 26.0 - 34.0 pg 06/30/2024 6:15 AM CDT [facility] MCHC 34.4 31.0 - 36.0 g/dL 06/30/2024 6:15 AM CDT [facility] PLATELET COUNT 307 140 - 440 10(3)/mcL 06/30/2024 6:15 AM CDT [facility] RDW 12.9 11.8 - 15.5 % 06/30/2024 6:15 AM CDT [facility] MPV 9.5(L) 9.7 - 12.4 fL 06/30/2024 6:15 AM CDT [facility] NRBC PER 100 WBC 0 06/30/2024 6:15 AM CDT [facility] RESULTS ARE CONSISTENT WITH PERIPHERAL SMEAR REVIEW Yes 06/30/2024 6:15 AM CDT [facility] Blood Venipuncture / Unknown 06/30/2024 5:35 AM CDT 06/30/2024 5:39 AM CDT us Brayan Kang MD HEMATOLOGY ORDERABLES Final R esult [facility] [address] [place] [address] * (ABNORMAL) BMP with Ca, Total (06/30/2024 5:35 AM CDT) Only the most recent of3 resultswithin the time period is included. SODIUM 137 136 - 145 mmol/L 06/30/2024 6:05 AM CDT [facility] POTASSIUM 3.6 3.5 - 5.1 mmol/L 06/30/2024 6:05 AM CDT [facility] CHLORIDE 110(H) 98 - 107 mmol/L 06/30/2024 6:05 AM CDT [facility] CO2, VENOUS 15(L) 22 - 30 mmol/L 06/30/2024 6:05 AM CDT [facility] ANION GAP 15.6 <18.0 mmol/L 06/30/2024 6:05 AM CDT [facility] GLUCOSE 82 70 - 99 mg/dL 06/30/2024 6:05 AM CDT [facility] BUN 7 5 - 18 mg/dL 06/30/2024 6:05 AM CDT [facility] CREATININE, BLOOD 0.87 0.60 - 1.00 mg/dL 06/30/2024 6:05 AM CDT [facility] BUN/CREATININE RATIO 8(L) 12 - 20 ratio 06/30/2024 6:05 AM T [facility] CALCIUM 9.6 8.7 - 10.5 mg/dL 06/30/2024 6:05 AM CDT [facility] GFR, ESTIMATED >60 >=60 06/30/2024 6:05 AM CDT [facility] Comment: Creatinine Clearance is the preferred criteria for selecting drug dose adjustments in renally impaired patients. ??The GFR is provided as additional pertinent clinical information. GFR is reported in mL/min/1.73 sq m. Calculation based on the Chronic Kidney Disease Epidemiology Collaboration (CKD- EPI) equation refit without adjustment for race. GFR, EST. >60 >=60 024 6:05 AM CDT [facility] GFR, EST. NONAFRICAN >60 >=60 06/30/2024 6:05 AM CDT [facility] Blood Venipuncture / Unknown 06/30/2024 5:35 AM CDT 06/30/2024 5:40 AM CDT Brayan Kang MD CHEMISTRY ORDERABLES Final Re sult Performing Organization Address City/[facility]/ZIP Co de Phone Number [facility] [address] [place] [address] * Magnesium (Mg) (06/30/2024 5:35 AM CDT) Only the most recent of3 resultswithin the time period is included. MAGNESIUM 2.3 1.6 - 2.6 mg/dL 06/30/2024 6:05 AM CDT [facility] Blood Venipuncture / Unknown 06/30/2024 5:35 AM CDT 06/30/2024 5:40 AM CDT us Debo Keenan APRN, CNP CHEMISTRY ORDERABLES Final Result [facility] [address] [place] [address] * RHYTHM STRIP (06/30/2024 12:00 AM CDT) Only the most recent of11 resultswithin the time period is included. 06/30/2024 us Provider Scan IMG ECG ORDERABLES Final Result Performing Organization Address [facility] Co de Phone Number RESULTING AGENCY * Lactic Acid (Lactate) (06/29/2024 5:48 AM CDT) Only the most recent of3 resultswithin the time period is included. LACTIC ACID 0.9 0.7 - 2.0 mmol/L 06/29/2024 6:17 AM CDT [facility] Comment: Specimen is hemolyzed. In vitro hemolysis could affect results. Clinical correlation advised. Blood Venipuncture / Unknown 06/29/2024 5:48 AM CDT 06/29/2024 5:56 AM CDT Brayan Kang MD CHEMISTRY ORDERABLES Final Re sult Performing Organization Address [facility] de Phone Number [facility] [address] [place] [address] * PHOSPHORUS (PO4) (06/29/2024 5:48 AM CDT) [facility] PHOSPHORUS 3.1 2.5 - 4.5 mg/dL 06/29/2024 6:23 AM CDT [facility] Blood Venipuncture / Unknown 06/29/2024 5:48 AM CDT 06/29/2024 5:56 AM CDT Brayan Kang MD CHEMISTRY ORDERABLES Final Re sult Performing Organization Address [facility] Co de Phone Number [facility] [address] [place] [address] * (ABNORMAL) URINALYSIS REFLEX IF INDICATED BY ABNORMAL RESULTS (06/28/2024 6:21 PM CDT) Pathologist [facility] SPECIFIC GRAVITY 1.015 1.003 - 1.030 06/28/2024 6:46 PM CDT [facility] URINE PH 6.0 5.0 - 9.0 06/28/2024 6:46 PM CDT [facility] WBC ESTERASE 25 /ul(A) Negative 06/28/2024 6:46 PM CDT [facility] NITRITE Negative Negative 06/28/2024 6:46 PM CDT [facility] PROTEIN, RANDOM URINE 30 mg/dL(A) Negative 06/28/2024 6:46 PM CDT [facility] URINE GLUCOSE, QUAL Negative Negative 06/28/2024 6:46 PM CDT [facility] URINE KETONES 150 mg/dL(A) Negative 6:46 PM CDT [facility] UROBILINOGEN Normal Normal mg/dL 06/28/2024 6:46 PM CDT [facility] URINE BLOOD 250 /uL(A) Negative chidi/ul 06/28/2024 6:46 PM CDT [facility] URINALYSIS COLOR Dark Yellow 024 6:46 PM CDT [facility] URINALYSIS CLARITY Clear 06/28/2024 6:46 PM CDT [facility] WBC (Urine) 0-5 Negative, 0-5 /hpf 06/28/2024 6:46 PM CDT [facility] URINE RBC'S 51-150(A) Negative, 0-2 /hpf 06/28/2024 6:46 PM CDT [facility] EPITHELIAL CELLS Moderate amount /lpf 06/28/2024 6:46 PM CDT [facility] BACTERIA, URINE Few(A) Negative /hpf 06/28/2024 6:46 PM CDT [facility] Urine URINE SPECIMEN COLLECTION, CLEAN CATCH / Unknown Non-Phlebotomy Collection / Unknown 06/28/2024 6:21 PM CDT 06/28/2024 6:27 PM CDT us Violetta Mcdonald MD URINE ORDERABLES Final R esult [facility] [address] [place] [address] * CMV DNA Quant PCR (06/28/2024 3:30 PM CDT) Pathologist [facility] CMV DNA QUANT PCR NON DETECTED NON DETECTED 06/29/2024 12:48 PM CDT [facility] CMV DNA QT LOG 06/29/2024 12:48 PM CDT [facility] Comment: LOG 10 not applicable Blood Venipuncture / Unknown 06/28/2024 3:30 PM CDT 06/28/2024 3:33 PM CDT Narrative [facility] - 06/29/2024 12:48 PM CDT Supplemental testing methods may be needed when CMV viral loads are negative in patients highly suspected to have clinically significant CMV viremia This test was performed using JUAN F 5800 Real Time PCR. Violetta Mcdonald MD IMMUNOLOGY ORDERABLES [facility] Result [facility] [address] [place] [address], * Stanley Collazo Virus (EBV) Comprehensive (06/28/2024 3:30 PM CDT) [facility] EBV VCA IGG AB (STANLEY-COLLAZO VIRUS-VIRAL CAPSID ANTIGEN) 3.4 AI 06/29/2024 5:17 AM CDT [facility] Comment: <= 0.8 Negative. ??No detectable IgG antibody to VCA. 0.9 - 1.0 Equivocal >=1.1 Positive Antibody testing was performed by multiplex flow immunoassay on the BioPlex platform. EBV NUCLEAR AG >8.0 AI 06/29/2024 5:17 AM CDT [facility] Comment: <= 0.8 Negative. ??No detectable IgG antibody to NA. 0.9 - 1.0 Equivocal >=1.1 Positive Antibody testing was performed by multiplex flow immunoassay on the BioPlex platform. EBV EARLY AG(EA, DIF) <0.2 AI 06/29/2024 5:17 AM CDT [facility] Comment: <= 0.8 Negative. ??No detectable IgG antibody to EA. 0.9 - 1.0 Equivocal >=1.1 Positive Antibody testing was performed by multiplex flow immunoassay on the [employer]Plex platform. EBV VCA IGM AB (STANLEY-COLLAZO VIRUS-VIRAL CAPSID ANTIGEN) 0.2 <1.1 AI 06/29/2024 5:17 AM CDT [facility] Comment: <= 0.8 Negative. ??No detectable IgM antibody to VCA. 0.9 - 1.0 Equivocal >=1.1 Positive Antibody testing was performed by multiplex flow immunoassay on the BioPlex platform. EBV HETEROPHILE <0.2 <1.1 AI 5:17 AM CDT [facility] Comment: <= 0.8 Negative. ??No detectable Heterophile antibody. 0.9 - 1.0 Equivocal >=1.1 Positive Antibody testing was performed by multiplex flow immunoassay on the BioPlex platform. EBV INTERP: 06/29/2024 5:17 AM CDT [facility] Comment:This serology is mos t consistent with past Stanley Collazo Viral infection. Blood Venipuncture / Unknown 06/28/2024 3:30 PM CDT 06/28/2024 3:33 PM CDT us Violetta Mcdonald MD IMMUNOLOGY ORDERABLES Fi nal Result [facility] [address] [place] [address], [place] * XR REFERENCE IMAGES FOR IMAGE [...] PM T: ??06/27/2024 1:07 PM Report ID: [id number] Reading Location: ??[id number] Procedure Note Filipe Erazo MD - 06/27/2024 [...] Filipe Erazo M.D. MM: MM Report ID: [id number] Reading Location: [id number] IMPRESSION: No acute pulmonary process. Debo Keenan APRN, CNP IMG DIAGNOSTIC ORDERA BLES Final Result * ABO/RH (D) RECHECK (06/27/2024 11:38 AM CDT) Only the most recent of2 resultswithin the time period is included. ABO TYPING O 06/27/2024 1:16 PM CDT [facility] RH Positive 06/27/2024 1:16 PM CDT [facility] Blood Venipuncture / Unknown 06/27/2024 11:38 AM CDT 06/27/2024 1:13 PM CDT Romelia Horn MD PhD BLOOD BANK ORDERABLES Final Result [facility] [address] [place] [address] * Culture, Blood (06/27/2024 11:38 AM CDT) Only the most recent of2 resultswithin the time period is included. CULTURE RESULTS NO GROWTH WITHIN 5 DAYS, FINAL RESULT 07/02/2024 12:00 PM CDT [facility] Culture BLOOD SPECIMEN / Unknown Venipuncture / Unknown 06/27/2024 11:38 AM CDT 06/27/2024 11:42 AM CDT Narrative [facility] - 07/02/2024 12:00 PM CDT Only received an anaerobic bottle for this culture set (no aerobic bottle). Due to the current Bactec bottle shortage, this culture will still be processed. Brayan Kang MD MICROBIOLOGY - GENERAL ORDERA BLES Final Result [facility] [address] [place] [address], [place] * PT/INR Routine (06/27/2024 11:20 AM CDT) PROTIME-PATIENT 14.1 11.6 - 14.8 sec 06/27/2024 11:46 AM CDT [facility] INR 1.1 0.9 - 1.2 06/27/2024 11:46 AM CDT [facility] Comment: Therapeutic Ranges INR = 2.0-3.0: Venous thromb, atrial fib, pul embolism, tissue heart valve, ami. INR = 2.5-3.5: Mechanical heart valve Critical value for INR is >/= 4.5 Blood BLOOD SPECIMEN / Unknown Venipuncture / Unknown 06/27/2024 11:20 AM CDT 06/27/2024 11:26 AM CDT Brayan Kang MD HEMATOLOGY ORDERABLES Final R esult Performing Organization Address City/[facility]/ZIP Co de Phone Number [facility] [address] [place] [address] * TYPE & SCREEN (CROSSMATCH CONVERTIBLE) (06/27/2024 11:20 AM CDT) Pathologist [facility] ABO TYPING O 06/27/2024 12:47 PM CDT [facility] RH Positive 06/27/2024 12:47 PM CDT [facility] ABSC Negative 06/27/2024 12:47 PM CDT [facility] Blood Venipuncture / Unknown 06/27/2024 11:20 AM CDT 06/27/2024 11:26 AM CDT Brayan Kang MD BLOOD BANK ORDERABLES Edited Result - Final [facility] [address] [place] [address] * Lipase (06/27/2024 11:20 AM CDT) Pathologist [facility] LIPASE 36 8 - 78 U/L 06/27/2024 11:52 AM CDT [facility] Blood Venipuncture / Unknown 06/27/2024 11:20 AM CDT 06/27/2024 11:26 AM CDT Brayan Kang MD CHEMISTRY ORDERABLES Final Re sult Performing Organization Address City/[facility]/ZIP Co de Phone Number [facility] [address] [place] [address] * (ABNORMAL) Amylase (06/27/2024 11:20 AM CDT) AMYLASE 21(L) 25 - 125 U/L 06/27/2024 11:52 AM CDT [facility] Blood Venipuncture / Unknown 06/27/2024 11:20 AM CDT 06/27/2024 11:26 AM CDT Brayan Kang MD CHEMISTRY ORDERABLES Final Re sult Performing Organization Address City/[facility]/ZIP Co de Phone Number [facility] [address] [place] [address] * Procalcitonin (06/27/2024 11:20 AM CDT) PROCALCITONIN 0.16 <=0.25 ng/mL 06/27/2024 12:11 PM CDT [facility] Blood Venipuncture / Unknown 06/27/2024 11:20 AM CDT 06/27/2024 11:26 AM CDT Brayan Kang MD IMMUNOLOGY ORDERABLES Final R esult Performing Organization Address City/[facility]/ZIP Co de Phone Number [facility] [address] [place] [address] * (ABNORMAL) CMP (Comprehensive Metabolic Panel) (06/27/2024 11:20 AM CDT) SODIUM 136 136 - 145 mmol/L 06/27/2024 11:52 AM T [facility] POTASSIUM 3.1(L) 3.5 - 5.1 mmol/L 06/27/2024 11:52 AM [facility] CHLORIDE 105 98 - 107 mmol/L 06/27/2024 11:52 AM [facility] CO2, VENOUS 19(L) 22 - 30 mmol/L 06/27/2024 11:52 AM [facility] ANION GAP 15.1 <18.0 mmol/L 06/27/2024 11:52 AM [facility] GLUCOSE 112(H) 70 - 99 mg/dL 06/27/2024 11:52 AM [facility] BUN 10 5 - 18 mg/dL 06/27/2024 11:52 AM [facility] CREATININE, BLOOD 1.10(H) 0.60 - 1.00 mg/dL 06/27/2024 11:52 AM [facility] BUN/CREATININE RATIO 9(L) 12 - 20 ratio 06/27/2024 11:52 AM [facility] TOTAL PROTEIN 6.0(L) 6.3 - 8.2 g/dL 06/27/2024 11:52 AM [facility] ALBUMIN 3.3(L) 3.5 - 5.0 g/dL 06/27/2024 11:52 AM [facility] A/G RATIO 1.2 1.0 - 2.2 06/27/2024 11:52 AM [facility] CALCIUM 8.7 8.7 - 10.5 mg/dL 06/27/2024 11:52 AM [facility] T BILI 0.6 0.2 - 1.2 mg/dL 06/27/2024 11:52 AM [facility] SGOT (AST) 15 5 - 34 U/L 06/27/2024 11:52 AM T [facility] SGPT (ALT) 39 0 - 55 U/L 06/27/2024 11:52 AM CDT [facility] ALKALINE PHOSPHATASE 57 40 - 150 U/L 06/27/2024 11:52 AM CDT [facility] GFR, ESTIMATED >60 >=60 06/27/2024 11:52 AM CDT [facility] Comment: Creatinine Clearance is the preferred criteria for selecting drug dose adjustments in renally impaired patients. ??The GFR is provided as additional pertinent clinical information. GFR is reported in mL/min/1.73 sq m. Calculation based on the Chronic Kidney Disease Epidemiology Collaboration (CKD- EPI) equation refit without adjustment for race. GFR, EST. >60 >=60 024 11:52 AM CDT [facility] GFR, EST. NONAFRICAN >60 >=60 06/27/2024 11:52 AM CDT [facility] Blood Venipuncture / Unknown 06/27/2024 11:20 AM CDT 06/27/2024 11:26 AM CDT us Brayan Kang MD CHEMISTRY ORDERABLES Final Re sult Performing Organization Address [facility]/ZIP Co de Phone Number [facility] [address] [place] [address] * CT - ABDOMEN/PELVIS (06/27/2024 12:00 AM CDT) 06/27/2024 us Provider Scan IMG CT ORDERABLES Final Result SCAN * C. DIFFICILE BY PCR (06/27/2024 12:00 AM CDT) 06/27/2024 us Provider Scan MICROBIOLOGY - GENERAL ORDERABLE S Final Result Performing Organization Address City/[facility]/ZIP Co de Phone Number SCAN * [...] taking oral intake without complications and both PO/CO orders are active, administer through the oral route. acetaminophen (TYLENOL) tablet 650 mg 650 mg, Oral, EVERY 4 HOURS PRN, Starting on Tue06/27/24 at 1155, Until 06/30/24 at 2110, Mild pain or more severe pain if patient requests, Fever, If patient is taking oral intake without complications and both PO/CO orders are active, administer through the oral [...] taking oral intake without complications and both PO/CO orders are active, administer through the oral route. acetaminophen (TYLENOL) tablet 650 mg(Linked Group 1) 650 mg, Oral, EVERY 4 HOURS PRN, Starting on Tue06/27/24 at 1155, Until 06/30/24 at 2110, Mild pain or more severe pain if patient requests, Fever, If patient is taking oral intake without complications and both PO/CO orders are active, administer through the oral [...] taking oral intake without complications and both PO/CO orders are active, administer through the oral route. Or acetaminophen (TYLENOL) suppository 650 mgJump to med 650 mg, Rectal, EVERY 4 HOURS PRN, Starting on 06/27/24 at 1155, Until 06/30/24 at 2111, Mild pain or more severe pain if patient requests, Fever, If patient is taking oral intake without complications and both PO/CO orders are active, administer through the oral route. documented in this encounter Additional Health Concerns Infection Onset Date Last Indicated Resolved Time C. difficile Rule-Out Comment:Patient tested at [facility] and PCR was negative. 06/27/2024 06/27/2024 5:17 AM CDT documented as of this encounter Care Teams Infectious Disease Technician Relationship Specialty Start Date End Date Kellen Chu MD [address] [place] [address] PCP - General Family Medicine 04/18/24 Markus Finley MD [address] [place] [address] Consulting Physician Medical Oncology 04/18/24 documented as of this encounter
--- OUTSIDE RECORDS SUMMARY | 2024-10-27 02:49 | XMS_ITS | Encounter Summary ---
Author Organization [facility] Care Team Providers Care Educational Resource Coordinator Name Role Phone Pritesh Chu MD Primary Care Provider [phone] Markus Finley MD Unavailable [phone] Encounter Details Date Type Department Care Team (Latest Contact Info) Description 07/03/2024 Travel Social History Tobacco Use Types Packs/Day Years Used Date Smoking Tobacco: Former Cigarettes 0.5 8.5 S tarted: 04/18/2016 Smokeless Tobacco: Never Alcohol Use Standard Drinks/Week Comments Yes 0 (1 standard drink = 0.6 oz pur e alcohol) [facility] Utilities Answer Date Recorded In the past 12 months has [employer], gas, oil, or water [employer] threatened to shut off services in your [...] and heating? Not hard at all 06/27/2024 [facility] - Occupational Stress [...] any time in the past 12 m [facility], were you homeless or living in a correction (including now)? No 06/27/2024 Comments No Sex [...] st Contact Info) Description 11/15/2024 1:00 PM FOLDER HAND Lab [facility] [address] [place] [address] Markus Finley MD [address] [place] [address] 11/15/2024 2:00 PM FOLDER HAND Appointment [facility] [address] [place] [address] Markus Finley MD [address] [place] [address] Discharge Disposition: Discharged to home or Selfcare documented as of this encounter Visit Diagnoses Not on filedocumented in this encounter Care Teams Educational Resource Coordinator Relationship Specialty Start Date End Date Pritesh Chu MD [address] [place] [address] PCP - General Family Medicine 04/18/24 Markus Finley MD [address] [place] [address] Consulting Physician Medical Oncology 04/18/24 documented as of this encounter
--- OUTSIDE RECORDS SUMMARY | 2024-10-27 02:49 | XMS_ITS | Encounter Summary ---
Author Organization [facility] Address [address] [place] [address] Phone Care Team Providers Care Ash Kier Boiler Name Role Phone Pritesh Chu MD Primary Care Provider [phone] Markus Finley MD Unavailable Encounter Details Date Type Department Care Team (Late st Contact Info) Description 06/01/2024 Telephone [facility] [address] [place] [id number] Markus Finley MD [address] [place] [address] Social History Tobacco Use Types Packs/Day Years [...] st Contact Info) Description 11/15/2024 1:00 PM DECATIZER Lab [facility] Laboratory Services [address] [place] [address] Markus Finley MD [address] [place] [address] 11/15/2024 2:00 PM DECATIZER Appointment [facility] [address] [place] [address] Markus Finley MD [address] [place] [address] Discharge Disposition: Discharged to home or Selfcare documented as of this encounter Visit Diagnoses Not on filedocumented in this encounter Care Teams Ash Kier Boiler Relationship Specialty Start Date End Date Pritesh Chu MD [address] [place] [address] PCP - General Family Medicine 04/18/24 Marksu Finley MD [address] [place] [address] Consulting Physician Medical Oncology 04/18/24 documented as of this encounter
--- OUTSIDE RECORDS SUMMARY | 2024-10-27 02:49 | XMS_ITS | Encounter Summary ---
Author Organization [facility] Address [address] [facility] [place] [address] Phone Care Team Providers Care Room Service Waiter/Waitress Name Role Phone Pritesh Chu MD Primary Care Provider [phone] Markus Finley MD Unavailable [phone] Reason for Visit * Episode Based Medications (Routine) - Closed Specialty Diagnoses / Procedures Referred By Contross t Referred To Contact Diagnoses Metastatic melanoma (HCC) Markus Finley MD [address] [place] [address] Phone: tel: fax: [facility] Oncology Services [address] [place] [address] Phone: tel: fax: Referral ID Status Reason Start Date Expiration Date Visits Re quested Visits Authorized [id number] Closed 04/19/2024 1 30 Encounter Details Date Type Department Care Team (Late st Contact Info) Description 05/22/2024 10:00 AM CDT Clinical Support [facility] Oncology Services [address] [place] [address] Markus Finley MD [address] [place] [address] Metastatic melanoma (HCC) (Primary Dx) Discharge Disposition: [...] st Contact Info) Description 11/15/2024 1:00 PM POSTAL SUPERINTENDENT [facility] [address] [place] [address] Markus Finley MD [address] [place] [address] 11/15/2024 2:00 PM POSTAL SUPERINTENDENT [facility] [address] [place] [address] Markus Finley MD [address] [place] [address] Discharge Disposition: Discharged to home or Selfcare [...] mg documented in this encounter Care Teams Room Service Waiter/Waitress Relationship Specialty Start Date End Date Pritesh Chu MD [address] [address] PCP - General Family Medicine 04/18/24 Markus Finley MD [address] [place] [address] Consulting Physician Medical Oncology 04/18/24 documented as of this encounter
--- OUTSIDE RECORDS SUMMARY | 2024-10-27 02:49 | XMS_ITS | Encounter Summary ---
Author Organization [facility] Address [address] [place] [address] Phone Care Team Providers Care Aviation Maintenance Instructor Name Role Phone Pritesh Chu MD Primary Care Provider [phone] Markus Finley MD Unavailable [phone] Encounter Details Date Type Department Care Team (Late st Contact Info) Description 05/02/2024 Documentation Only [facility] On[facility] [address] [place] [phone] Markus Finley MD [address] [place] [address] Social History Tobacco Use Types Packs/Day Years [...] junel Fe24 Vitamins: none listed Labs: 04/18/24-albumin=4.3, FR=227, Lr=681, K=3.6, EGFR>60 Initial Wt: 293# -05/01/2024 Height: 5' 7 BMI: 45.94 BMI weight range for height: 121-158# Adjusted BW: 170# EMR wt hx: 290# -04/18/2024 ([facility]) 288# 9oz-03/06/2024 290# -10/04/2023 285# - %Wt Loss: 0% Estimated needs:(based on adjusted BW) Calories: 7590-9568 (25-30kcal/kg) Protein: 77-100gm (1-1.3gm/kg) Fluids: 2300ml A: [...] st Contact Info) Description 11/15/2024 1:00 PM SILVERWARE BUFFING MACHINE OPERATOR [facility] [address] [place] [address] Markus Finley MD [address] [place] [address] 11/15/2024 2:00 PM SILVERWARE BUFFING MACHINE OPERATOR [facility] [address] [place] [address] Markus Finley MD [address] [place] [address] Discharge Disposition: Discharged to home or Selfcare documented as of this encounter Visit Diagnoses Not on filedocumented in this encounter Care Teams Aviation Maintenance Instructor Relationship Specialty Start Date End Date Pritesh Chu MD [address] [place] [address] PCP - General Family Medicine 04/18/24 Markus Finley MD [address] [place] [address] Consulting Physician Medical Oncology 04/18/24 documented as of this encounter
--- OUTSIDE RECORDS SUMMARY | 2024-10-27 02:49 | XMS_ITS | Encounter Summary ---
Author Organization [facility] Address [address] [place] [address] Phone Care Team Providers Care Avionics Installer Name Role Phone Pritesh Chu MD Primary Care Provider [phone] Markus Finley MD Unavailable [phone] Reason for Referral * Consult, Test & Initiate Treatment (Routine) - Closed Specialty Diagnoses / Procedures Referred By Contross t Referred To Contact Diagnoses Metastatic melanoma (HCC) Markus Finley MD [address] [place] [address] Phone: tel: fax: [facility] [address] [place] [phone] Phone: tel: fax: Referral ID Status Reason Start Date Expiration Date Visits Re quested Visits Authorized [id number] Closed 05/01/2024 1 1 Scheduling Instructions Dayanara is being referred for new chemotherapy. Please contact patient for scheduling questions or concerns. Reason for Visit * Episode Based Medications (Routine) - Closed Specialty Diagnoses / Procedures Referred By Contac t Referred To Contact Diagnoses Metastatic melanoma (HCC) Markus Finley MD [address] [place] [address] Phone: tel: fax: [facility] [address] [place] [phone] Phone: tel: fax: Referral ID Status Reason Start Date Expiration Date Visits Re quested Visits Authorized [id number] Closed 04/19/2024 1 30 Encounter Details Date Type Department Care Team (Late st Contact Info) Description 05/01/2024 1:00 PM CDT Clinical Support [facility] [address] [place] [phone] [place] [address] [place] [id number] Metastatic melanoma (HCC) (Primary Dx) Discharge [...] answered to patient's satisfaction. Reviewed dose with [facility] per pharmacy request, using flip dose for Melanoma. Chemotherapy given per MD order and pt tolerated well. Port flushed with NS and heparin per protocol and port needle removed. Port site covered with bandaid. Pt left in stable condition. documented in this encounter Plan of Treatment Upcoming Encounters Date Type Department Care Team (Late st Contact Info) Description 11/15/2024 1:00 PM ACTIVE DIRECTORY ARCHITECT Lab [facility] [address] [place] [address] Markus Finley MD [address] [place] [address] 11/15/2024 2:00 PM ACTIVE DIRECTORY ARCHITECT Appointment [facility] MRI [address] [place] [address] Markus Finley MD [address] [place] [address] Discharge Disposition: Discharged to home or Selfcare [...] THYROID STIMULATING HORMONE (TSH) (10/02/2024 3:08 PM ACTIVE DIRECTORY ARCHITECT) TSH 1.466 0.300 - 5.000 mIU/L 10/02/2024 3:59 PM ACTIVE DIRECTORY ARCHITECT [facility] Blood Sub-Q Port Venou s Access Device (Medi-Port, Implanted Port) / Unknown 10/02/2024 3:08 PM ACTIVE DIRECTORY ARCHITECT 10/02/2024 3:08 PM ACTIVE DIRECTORY ARCHITECT Markus Finley MD CHEMISTRY ORDERABLES Fin al Result [facility] #1 [place] [address] * (ABNORMAL) CMP (COMPREHENSIVE METABOLIC PANEL) (10/02/2024 3:08 PM ACTIVE DIRECTORY ARCHITECT) SODIUM 136 136 - 145 mmol/L 10/02/2024 3:40 PM ACTIVE DIRECTORY ARCHITECT [facility] POTASSIUM 4.5 3.5 - 5.1 mmol/L 10/02/2024 3:40 PM [facility] CHLORIDE 109(H) 98 - 107 mmol/L 10/02/2024 3:40 PM [facility] CO2, VENOUS 21(L) 22 - 30 mmol/L 10/02/2024 3:40 PM [facility] ANION GAP 10.5 <18.0 mmol/L 10/02/2024 3:40 PM [facility] GLUCOSE 118(H) 70 - 99 mg/dL 10/02/2024 3:40 PM [facility] BUN 21(H) 5 - 18 mg/dL 10/02/2024 3:40 PM [facility] CREATININE, BLOOD 0.94 0.60 - 1.00 mg/dL 10/02/2024 3:40 PM [facility] BUN/CREATININE RATIO 22(H) 12 - 20 ratio 10/02/2024 3:40 PM [facility] TOTAL PROTEIN 6.2(L) 6.3 - 8.2 g/dL 10/02/2024 3:40 PM [facility] ALBUMIN 3.9 3.5 - 5.0 g/dL 10/02/2024 3:40 PM [facility] A/G RATIO 1.7 1.0 - 2.2 10/02/2024 3:40 PM [facility] CALCIUM 9.0 8.7 - 10.5 mg/dL 10/02/2024 3:40 PM [facility] T BILI 0.2 0.2 - 1.2 mg/dL 10/02/2024 3:40 PM [facility] SGOT (AST) 17 5 - 34 U/L 10/02/2024 3:40 PM [facility] SGPT (ALT) 52 0 - 55 U/L 10/02/2024 3:40 PM [facility] ALKALINE PHOSPHATASE 45 40 - 150 U/L 10/02/2024 3:40 PM [facility] IS THE PATIENT REQUIRED TO BE FASTING? No 10/02/2024 3:40 PM ACTIVE DIRECTORY ARCHITECT [facility] GFR, ESTIMATED >60 >=60 10/02/2024 3:40 PM ACTIVE DIRECTORY ARCHITECT [facility] Comment: Creatinine Clearance is the preferred criteria for selecting drug dose adjustments in renally impaired patients. ??The GFR is provided as additional pertinent clinical information. GFR is reported in mL/min/1.73 sq m. Calculation based on the Chronic Kidney Disease Epidemiology Collaboration (CKD- EPI) equation refit without adjustment for race. GFR, EST. >60 >=60 024 3:40 PM ACTIVE DIRECTORY ARCHITECT [facility] GFR, EST. NONAFRICAN >60 >=60 10/02/2024 3:40 PM ACTIVE DIRECTORY ARCHITECT [facility] Blood Sub-Q Port Venou s Access Device (Medi-Port, Implanted Port) / Unknown 10/02/2024 3:08 PM ACTIVE DIRECTORY ARCHITECT 10/02/2024 3:08 PM ACTIVE DIRECTORY ARCHITECT Markus Finley MD CHEMISTRY ORDERABLES Fin al Result Performing Organization Address City/[facility]/ZIP Co de Phone Number [facility] [place] [address] * THYROID STIMULATING HORMONE (TSH) (09/25/2024 2:03 PM ACTIVE DIRECTORY ARCHITECT) TSH 2.382 0.300 - 5.000 mIU/L 09/25/2024 2:49 PM ACTIVE DIRECTORY ARCHITECT [facility] Blood Sub-Q Port Venou s Access Device (Medi-Port, Implanted Port) / Unknown 09/25/2024 2:03 PM ACTIVE DIRECTORY ARCHITECT 09/25/2024 2:03 PM ACTIVE DIRECTORY ARCHITECT Markus Finley MD CHEMISTRY ORDERABLES Fin al Result Performing Organization Address City/[facility]/ZIP Co de Phone Number [facility] [address] [place] [address] * (ABNORMAL) CMP (COMPREHENSIVE METABOLIC PANEL) (09/25/2024 2:03 PM [facility]) SODIUM 141 136 - 145 mmol/L 09/25/2024 2:32 PM [facility] POTASSIUM 4.2 3.5 - 5.1 mmol/L 09/25/2024 2:32 PM [facility] CHLORIDE 109(H) 98 - 107 mmol/L 09/25/2024 2:32 PM [facility] CO2, VENOUS 25 22 - 30 mmol/L 09/25/2024 2:32 PM [facility] ANION GAP 11.2 <18.0 mmol/L 09/25/2024 2:32 PM [facility] GLUCOSE 95 70 - 99 mg/dL 09/25/2024 2:32 PM [facility] BUN 22(H) 5 - 18 mg/dL 09/25/2024 2:32 PM [facility] CREATININE, BLOOD 0.86 0.60 - 1.00 mg/dL 09/25/2024 2:32 PM [facility] BUN/CREATININE RATIO 26(H) 12 - 20 ratio 09/25/2024 2:32 PM [facility] TOTAL PROTEIN 6.3 6.3 - 8.2 g/dL 09/25/2024 2:32 PM [facility] ALBUMIN 4.0 3.5 - 5.0 g/dL 09/25/2024 2:32 PM [facility] A/G RATIO 1.7 1.0 - 2.2 09/25/2024 2:32 PM [facility] CALCIUM 9.0 8.7 - 10.5 mg/dL 09/25/2024 2:32 PM [facility] T BILI 0.5 0.2 - 1.2 mg/dL 09/25/2024 2:32 PM [facility] SGOT (AST) 20 5 - 34 U/L 09/25/2024 2:32 PM [facility] SGPT (ALT) 45 0 - 55 U/L 09/25/2024 2:32 PM ACTIVE DIRECTORY ARCHITECT [facility] ALKALINE PHOSPHATASE 39(L) 40 - 150 U/L 09/25/2024 2:32 PM ACTIVE DIRECTORY ARCHITECT [facility] IS THE PATIENT REQUIRED TO BE FASTING? No 09/25/2024 2:32 PM ACTIVE DIRECTORY ARCHITECT [facility] GFR, ESTIMATED >60 >=60 09/25/2024 2:32 PM ACTIVE DIRECTORY ARCHITECT [facility] Comment: Creatinine Clearance is the preferred criteria for selecting drug dose adjustments in renally impaired patients. ??The GFR is provided as additional pertinent clinical information. GFR is reported in mL/min/1.73 sq m. Calculation based on the Chronic Kidney Disease Epidemiology Collaboration (CKD- EPI) equation refit without adjustment for race. GFR, EST. >60 >=60 024 2:32 PM ACTIVE DIRECTORY ARCHITECT [facility] GFR, EST. NONAFRICAN >60 >=60 09/25/2024 2:32 PM ACTIVE DIRECTORY ARCHITECT [facility] Blood Sub-Q Port Venou s Access Device (Medi-Port, Implanted Port) / Unknown 09/25/2024 2:03 PM ACTIVE DIRECTORY ARCHITECT 09/25/2024 2:03 PM ACTIVE DIRECTORY ARCHITECT Markus Finley MD CHEMISTRY ORDERABLES Fin al Result [facility] [address] [place] [address] * THYROID STIMULATING HORMONE (TSH) (09/18/2024 2:21 PM ACTIVE DIRECTORY ARCHITECT) TSH 1.270 0.300 - 5.000 mIU/L 09/18/2024 3:31 PM ACTIVE DIRECTORY ARCHITECT [facility] Blood Sub-Q Port Venou s Access Device (Medi-Port, Implanted Port) / Unknown 09/18/2024 2:21 PM ACTIVE DIRECTORY ARCHITECT 09/18/2024 2:21 PM ACTIVE DIRECTORY ARCHITECT Markus Finley MD CHEMISTRY ORDERABLES Jacob al Result [facility] [address] [place] [address] * (ABNORMAL) CMP (COMPREHENSIVE METABOLIC PANEL) (09/18/2024 2:21 PM ACTIVE DIRECTORY ARCHITECT) SODIUM 140 136 - 145 mmol/L 09/18/2024 2:50 PM ACTIVE DIRECTORY ARCHITECT [facility] POTASSIUM 4.2 3.5 - 5.1 mmol/L 09/18/2024 2:50 PM ACTIVE DIRECTORY ARCHITECT [facility] CHLORIDE 107 98 - 107 mmol/L 09/18/2024 2:50 PM [facility] CO2, VENOUS 25 22 - 30 mmol/L 09/18/2024 2:50 PM ACTIVE DIRECTORY ARCHITECT [facility] ANION GAP 12.2 <18.0 mmol/L 09/18/2024 2:50 PM ACTIVE DIRECTORY ARCHITECT [facility] GLUCOSE 114(H) 70 - 99 mg/dL 09/18/2024 2:50 PM ACTIVE DIRECTORY ARCHITECT [facility] BUN 24(H) 5 - 18 mg/dL 09/18/2024 2:50 PM [facility] CREATININE, BLOOD 0.78 0.60 - 1.00 mg/dL 09/18/2024 2:50 PM [facility] BUN/CREATININE RATIO 31(H) 12 - 20 ratio 09/18/2024 2:50 PM [facility] TOTAL PROTEIN 5.9(L) 6.3 - 8.2 g/dL 09/18/2024 2:50 PM ACTIVE DIRECTORY ARCHITECT [facility] ALBUMIN 3.8 3.5 - 5.0 g/dL 09/18/2024 2:50 PM [facility] A/G RATIO 1.8 1.0 - 2.2 09/18/2024 2:50 PM ACTIVE DIRECTORY ARCHITECT [facility] CALCIUM 9.0 8.7 - 10.5 mg/dL 09/18/2024 2:50 PM [facility] T BILI 0.4 0.2 - 1.2 mg/dL 09/18/2024 2:50 PM ACTIVE DIRECTORY ARCHITECT [facility] SGOT (AST) 11 5 - 34 U/L 09/18/2024 2:50 PM ACTIVE DIRECTORY ARCHITECT [facility] SGPT (ALT) 45 0 - 55 U/L 09/18/2024 2:50 PM ACTIVE DIRECTORY ARCHITECT [facility] ALKALINE PHOSPHATASE 45 40 - 150 U/L 09/18/2024 2:50 PM ACTIVE DIRECTORY ARCHITECT [facility] IS THE PATIENT REQUIRED TO BE FASTING? No 09/18/2024 2:50 PM ACTIVE DIRECTORY ARCHITECT [facility] GFR, ESTIMATED >60 >=60 09/18/2024 2:50 PM ACTIVE DIRECTORY ARCHITECT [facility] Comment: Creatinine Clearance is the preferred criteria for selecting drug dose adjustments in renally impaired patients. ??The GFR is provided as additional pertinent clinical information. GFR is reported in mL/min/1.73 sq m. Calculation based on the Chronic Kidney Disease Epidemiology Collaboration (CKD- EPI) equation refit without adjustment for race. GFR, EST. >60 >=60 024 2:50 PM ACTIVE DIRECTORY ARCHITECT [facility] GFR, EST. NONAFRICAN >60 >=60 09/18/2024 2:50 PM ACTIVE DIRECTORY ARCHITECT [facility] Blood Sub-Q Port Venou s Access Device (Medi-Port, Implanted Port) / Unknown 09/18/2024 2:21 PM ACTIVE DIRECTORY ARCHITECT 09/18/2024 2:21 PM ACTIVE DIRECTORY ARCHITECT Markus Finley MD CHEMISTRY ORDERABLES Fin al Result [facility] [address] [place] [address] * (ABNORMAL) CMP (COMPREHENSIVE METABOLIC PANEL) (09/11/2024 1:32 PM ACTIVE DIRECTORY ARCHITECT) SODIUM 139 136 - 145 mmol/L 09/11/2024 2:07 PM ACTIVE DIRECTORY ARCHITECT [facility] POTASSIUM 3.8 3.5 - 5.1 mmol/L 09/11/2024 2:07 PM [facility] CHLORIDE 107 98 - 107 mmol/L 09/11/2024 2:07 PM [facility] CO2, VENOUS 22 22 - 30 mmol/L 09/11/2024 2:07 PM [facility] ANION GAP 13.8 <18.0 mmol/L 09/11/2024 2:07 PM [facility] GLUCOSE 145(H) 70 - 99 mg/dL 09/11/2024 2:07 PM [facility] BUN 25(H) 5 - 18 mg/dL 09/11/2024 2:07 PM [facility] CREATININE, BLOOD 0.87 0.60 - 1.00 mg/dL 09/11/2024 2:07 PM [facility] BUN/CREATININE RATIO 29(H) 12 - 20 ratio 09/11/2024 2:07 PM [facility] TOTAL PROTEIN 6.2(L) 6.3 - 8.2 g/dL 09/11/2024 2:07 PM [facility] ALBUMIN 4.0 3.5 - 5.0 g/dL 09/11/2024 2:07 PM [facility] A/G RATIO 1.8 1.0 - 2.2 09/11/2024 2:07 PM [facility] CALCIUM 8.9 8.7 - 10.5 mg/dL 09/11/2024 2:07 PM [facility] T BILI 0.5 0.2 - 1.2 mg/dL 09/11/2024 2:07 PM [facility] SGOT (AST) 13 5 - 34 U/L 09/11/2024 2:07 PM [facility] SGPT (ALT) 56(H) 0 - 55 U/L 09/11/2024 2:07 PM [facility] ALKALINE PHOSPHATASE 58 40 - 150 U/L 09/11/2024 2:07 PM [facility] IS THE PATIENT REQUIRED TO BE FASTING? No 09/11/2024 2:07 PM ACTIVE DIRECTORY ARCHITECT [facility] GFR, ESTIMATED >60 >=60 09/11/2024 2:07 PM ACTIVE DIRECTORY ARCHITECT [facility] Comment: Creatinine Clearance is the preferred criteria for selecting drug dose adjustments in renally impaired patients. ??The GFR is provided as additional pertinent clinical information. GFR is reported in mL/min/1.73 sq m. Calculation based on the Chronic Kidney Disease Epidemiology Collaboration (CKD- EPI) equation refit without adjustment for race. GFR, EST. >60 >=60 024 2:07 PM ACTIVE DIRECTORY ARCHITECT [facility] GFR, EST. NONAFRICAN >60 >=60 09/11/2024 2:07 PM ACTIVE DIRECTORY ARCHITECT [facility] Blood Sub-Q Port Venou s Access Device (Medi-Port, Implanted Port) / Unknown 09/11/2024 1:32 PM ACTIVE DIRECTORY ARCHITECT 09/11/2024 1:33 PM ACTIVE DIRECTORY ARCHITECT Markus Finley MD CHEMISTRY ORDERABLES Fin al Result Performing Organization Address City/[facility]/ZIP Co de Phone Number [facility] [place] [address] * THYROID STIMULATING HORMONE (TSH) (09/07/2024 11:55 AM CDT) TSH 1.777 0.300 - 5.000 mIU/L 09/07/2024 12:42 PM CDT [facility] Blood Sub-Q Port Venou s Access Device (Medi-Port, Implanted Port) / Unknown 09/07/2024 11:55 AM CDT 09/07/2024 11:55 AM CDT Markus Finley MD CHEMISTRY ORDERABLES Fin al Result [facility] [place] [address] * (ABNORMAL) CMP (COMPREHENSIVE METABOLIC PANEL) (09/07/2024 11:55 AM CDT) SODIUM 139 136 - 145 mmol/L 09/07/2024 12:24 PM CDT [facility] POTASSIUM 4.7 3.5 - 5.1 mmol/L 09/07/2024 12:24 PM CDT [facility] CHLORIDE 105 98 - 107 mmol/L 09/07/2024 12:24 PM CDT [facility] CO2, VENOUS 26 22 - 30 mmol/L 09/07/2024 12:24 PM CDT [facility] ANION GAP 12.7 <18.0 mmol/L 09/07/2024 12:24 PM CDT [facility] GLUCOSE 102(H) 70 - 99 mg/dL 09/07/2024 12:24 PM CDT [facility] BUN 20(H) 5 - 18 mg/dL 09/07/2024 12:24 PM CDT [facility] CREATININE, BLOOD 0.82 0.60 - 1.00 mg/dL 09/07/2024 12:24 PM CDT [facility] BUN/CREATININE RATIO 24(H) 12 - 20 ratio 09/07/2024 12:24 PM CDT [facility] TOTAL PROTEIN 6.1(L) 6.3 - 8.2 g/dL 09/07/2024 12:24 PM CDT [facility] ALBUMIN 3.9 3.5 - 5.0 g/dL 09/07/2024 12:24 PM CDT [facility] A/G RATIO 1.8 1.0 - 2.2 09/07/2024 12:24 PM CDT [facility] CALCIUM 9.2 8.7 - 10.5 mg/dL 09/07/2024 12:24 PM CDT [facility] T BILI 0.6 0.2 - 1.2 mg/dL 09/07/2024 12:24 PM CDT [facility] SGOT (AST) 12 5 - 34 U/L 09/07/2024 12:24 PM CDT [facility] SGPT (ALT) 53 0 - 55 U/L 09/07/2024 12:24 PM CDT [facility] ALKALINE PHOSPHATASE 52 40 - 150 U/L 09/07/2024 12:24 PM CDT [facility] IS THE PATIENT REQUIRED TO BE FASTING? No 09/07/2024 12:24 PM CDT [facility] GFR, ESTIMATED >60 >=60 09/07/2024 12:24 PM CDT [facility] Comment: Creatinine Clearance is the preferred criteria for selecting drug dose adjustments in renally impaired patients. ??The GFR is provided as additional pertinent clinical information. GFR is reported in mL/min/1.73 sq m. Calculation based on the Chronic Kidney Disease Epidemiology Collaboration (CKD- EPI) equation refit without adjustment for race. GFR, EST. >60 >=60 024 12:24 PM CDT [facility] GFR, EST. NONAFRICAN >60 >=60 09/07/2024 12:24 PM CDT [facility] Blood Sub-Q Port Venou s Access Device (Medi-Port, Implanted Port) / Unknown 09/07/2024 11:55 AM CDT 09/07/2024 11:55 AM CDT Markus Finley MD CHEMISTRY ORDERABLES Fin al Result [facility] [place] [address] * (ABNORMAL) CMP (COMPREHENSIVE METABOLIC PANEL) (08/24/2024 12:05 PM CDT) SODIUM 138 136 - 145 mmol/L 08/24/2024 12:43 PM CDT [facility] POTASSIUM 3.5 3.5 - 5.1 mmol/L 08/24/2024 12:43 PM CDT [facility] CHLORIDE 106 98 - 107 mmol/L 08/24/2024 12:43 PM CDT [facility] CO2, VENOUS 22 22 - 30 mmol/L 08/24/2024 12:43 PM CDT [facility] ANION GAP 13.5 <18.0 mmol/L 08/24/2024 12:43 PM CDT [facility] GLUCOSE 98 70 - 99 mg/dL 08/24/2024 12:43 PM CDT [facility] BUN 17 5 - 18 mg/dL 08/24/2024 12:43 PM CDT [facility] CREATININE, BLOOD 0.95 0.60 - 1.00 mg/dL 08/24/2024 12:43 PM CDT [facility] BUN/CREATININE RATIO 18 12 - 20 ratio 08/24/2024 12:43 PM CDT [facility] TOTAL PROTEIN 5.6(L) 6.3 - 8.2 g/dL 08/24/2024 12:43 PM CDT [facility] ALBUMIN 3.5 3.5 - 5.0 g/dL 08/24/2024 12:43 PM CDT [facility] A/G RATIO 1.7 1.0 - 2.2 08/24/2024 12:43 PM CDT [facility] CALCIUM 8.7 8.7 - 10.5 mg/dL 08/24/2024 12:43 PM CDT [facility] T BILI 0.5 0.2 - 1.2 mg/dL 08/24/2024 12:43 PM CDT [facility] SGOT (AST) 27 5 - 34 U/L 08/24/2024 12:43 PM CDT [facility] SGPT (ALT) 107(H) 0 - 55 U/L 08/24/2024 12:43 PM CDT [facility] ALKALINE PHOSPHATASE 56 40 - 150 U/L 08/24/2024 12:43 PM CDT [facility] IS THE PATIENT REQUIRED TO BE FASTING? No 08/24/2024 12:43 PM CDT [facility] GFR, ESTIMATED >60 >=60 08/24/2024 12:43 PM CDT [facility] Comment: Creatinine Clearance is the preferred criteria for selecting drug dose adjustments in renally impaired patients. ??The GFR is provided as additional pertinent clinical information. GFR is reported in mL/min/1.73 sq m. Calculation based on the Chronic Kidney Disease Epidemiology Collaboration (CKD- EPI) equation refit without adjustment for race. GFR, EST. >60 >=60 024 12:43 PM CDT [facility] GFR, EST. NONAFRICAN >60 >=60 08/24/2024 12:43 PM CDT [facility] Blood Venipuncture / Unknown 08/24/2024 12:05 PM CDT 08/24/2024 12:05 PM CDT Markus Finley MD CHEMISTRY ORDERABLES Fin al Result [facility] [place] [address] * (ABNORMAL) CMP (COMPREHENSIVE METABOLIC PANEL) (08/20/2024 2:00 PM CDT) SODIUM 133(L) 136 - 145 mmol/L 08/20/2024 2:59 PM CDT [facility] POTASSIUM 4.3 3.5 - 5.1 mmol/L 08/20/2024 2:59 PM CDT [facility] CHLORIDE 106 98 - 107 mmol/L 08/20/2024 2:59 PM CDT [facility] CO2, VENOUS 18(L) 22 - 30 mmol/L 08/20/2024 2:59 PM CDT [facility] ANION GAP 13.3 <18.0 mmol/L 08/20/2024 2:59 PM CDT [facility] GLUCOSE 121(H) 70 - 99 mg/dL 08/20/2024 2:59 PM CDT [facility] BUN 18 5 - 18 mg/dL 08/20/2024 2:59 PM CDT [facility] CREATININE, BLOOD 0.87 0.60 - 1.00 mg/dL 08/20/2024 2:59 PM CDT [facility] BUN/CREATININE RATIO 21(H) 12 - 20 ratio 08/20/2024 2:59 PM CDT [facility] TOTAL PROTEIN 6.0(L) 6.3 - 8.2 g/dL 08/20/2024 2:59 PM CDT [facility] ALBUMIN 3.7 3.5 - 5.0 g/dL 08/20/2024 2:59 PM CDT [facility] A/G RATIO 1.6 1.0 - 2.2 08/20/2024 2:59 PM CDT [facility] CALCIUM 8.9 8.7 - 10.5 mg/dL 08/20/2024 2:59 PM CDT [facility] T BILI 0.4 0.2 - 1.2 mg/dL 08/20/2024 2:59 PM CDT [facility] SGOT (AST) 13 5 - 34 U/L 08/20/2024 2:59 PM CDT [facility] SGPT (ALT) 43 0 - 55 U/L 08/20/2024 2:59 PM CDT [facility] ALKALINE PHOSPHATASE 64 40 - 150 U/L 08/20/2024 2:59 PM CDT [facility] IS THE PATIENT REQUIRED TO BE FASTING? No 08/20/2024 2:59 PM CDT [facility] GFR, ESTIMATED >60 >=60 08/20/2024 2:59 PM CDT [facility] Comment: Creatinine Clearance is the preferred criteria for selecting drug dose adjustments in renally impaired patients. ??The GFR is provided as additional pertinent clinical information. GFR is reported in mL/min/1.73 sq m. Calculation based on the Chronic Kidney Disease Epidemiology Collaboration (CKD- EPI) equation refit without adjustment for race. GFR, EST. >60 >=60 024 2:59 PM CDT [facility] GFR, EST. NONAFRICAN >60 >=60 08/20/2024 2:59 PM CDT [facility] Blood Venipuncture / Unknown 08/20/2024 2:00 PM CDT 08/20/2024 2:02 PM CDT us Markus Finley MD CHEMISTRY ORDERABLES [facility] al Result [facility] [address] [place] [address] * (ABNORMAL) CMP (COMPREHENSIVE METABOLIC PANEL) (08/15/2024 11:35 AM CDT) SODIUM 132(L) 136 - 145 mmol/L 08/15/2024 12:21 PM CDT [facility] POTASSIUM 4.0 3.5 - 5.1 mmol/L 08/15/2024 12:21 PM CDT [facility] CHLORIDE 100 98 - 107 mmol/L 08/15/2024 12:21 PM CDT [facility] CO2, VENOUS 25 22 - 30 mmol/L 08/15/2024 12:21 PM CDT [facility] ANION GAP 11.0 <18.0 mmol/L 08/15/2024 12:21 PM CDT [facility] GLUCOSE 87 70 - 99 mg/dL 08/15/2024 12:21 PM CDT [facility] BUN 24(H) 5 - 18 mg/dL 08/15/2024 12:21 PM CDT [facility] CREATININE, BLOOD 0.91 0.60 - 1.00 mg/dL 08/15/2024 12:21 PM CDT [facility] BUN/CREATININE RATIO 26(H) 12 - 20 ratio 08/15/2024 12:21 PM CDT [facility] TOTAL PROTEIN 6.2(L) 6.3 - 8.2 g/dL 08/15/2024 12:21 PM CDT [facility] ALBUMIN 3.7 3.5 - 5.0 g/dL 08/15/2024 12:21 PM CDT [facility] [facility] A/G RATIO 1.5 1.0 - 2.2 08/15/2024 12:21 PM CDT [facility] CALCIUM 8.8 8.7 - 10.5 mg/dL 08/15/2024 12:21 PM CDT [facility] T BILI 0.9 0.2 - 1.2 mg/dL 08/15/2024 12:21 PM CDT [facility] SGOT (AST) 21 5 - 34 U/L 08/15/2024 12:21 PM T [facility] SGPT (ALT) 69(H) 0 - 55 U/L 08/15/2024 12:21 PM T [facility] ALKALINE PHOSPHATASE 65 40 - 150 U/L 08/15/2024 12:21 PM T [facility] IS THE PATIENT REQUIRED TO BE FASTING? No 08/15/2024 12:21 PM CDT [facility] GFR, ESTIMATED >60 >=60 08/15/2024 12:21 PM T [facility] Comment: Creatinine Clearance is the preferred criteria for selecting drug dose adjustments in renally impaired patients. ??The GFR is provided as additional pertinent clinical information. GFR is reported in mL/min/1.73 sq m. Calculation based on the Chronic Kidney Disease Epidemiology Collaboration (CKD- EPI) equation refit without adjustment for race. GFR, EST. >60 >=60 024 12:21 PM CDT [facility] GFR, EST. NONAFRICAN >60 >=60 08/15/2024 12:21 PM T [facility] Blood Sub-Q Port Venou s Access Device (Medi-Port, Implanted Port) / Unknown 08/15/2024 11:35 AM CDT 08/15/2024 11:35 AM CDT us Markus Finley MD CHEMISTRY ORDERABLES Fin al Result [facility] [place] [address] * (ABNORMAL) CMP (COMPREHENSIVE METABOLIC PANEL) (08/13/2024 11:39 AM CDT) SODIUM 132(L) 136 - 145 mmol/L 08/13/2024 12:47 PM CDT [facility] POTASSIUM 3.8 3.5 - 5.1 mmol/L 08/13/2024 12:47 PM CDT [facility] CHLORIDE 99 98 - 107 mmol/L 08/13/2024 12:47 PM CDT [facility] CO2, VENOUS 26 22 - 30 mmol/L 08/13/2024 12:47 PM CDT [facility] ANION GAP 10.8 <18.0 mmol/L 08/13/2024 12:47 PM CDT [facility] GLUCOSE 127(H) 70 - 99 mg/dL 08/13/2024 12:47 PM CDT [facility] BUN 16 5 - 18 mg/dL 08/13/2024 12:47 PM CDT [facility] CREATININE, BLOOD 0.88 0.60 - 1.00 mg/dL 08/13/2024 12:47 PM CDT [facility] BUN/CREATININE RATIO 18 12 - 20 ratio 08/13/2024 12:47 PM CDT [facility] TOTAL PROTEIN 6.2(L) 6.3 - 8.2 g/dL 08/13/2024 12:47 PM CDT [facility] ALBUMIN 3.7 3.5 - 5.0 g/dL 08/13/2024 12:47 PM CDT [facility] A/G RATIO 1.5 1.0 - 2.2 08/13/2024 12:47 PM CDT [facility] CALCIUM 8.9 8.7 - 10.5 mg/dL 08/13/2024 12:47 PM CDT [facility] T BILI 0.7 0.2 - 1.2 mg/dL 08/13/2024 12:47 PM CDT [facility] SGOT (AST) 17 5 - 34 U/L 08/13/2024 12:47 PM CDT [facility] SGPT (ALT) 62(H) 0 - 55 U/L 08/13/2024 12:47 PM CDT [facility] ALKALINE PHOSPHATASE 75 40 - 150 U/L 08/13/2024 12:47 PM CDT [facility] IS THE PATIENT REQUIRED TO BE FASTING? No 08/13/2024 12:47 PM CDT [facility] GFR, ESTIMATED >60 >=60 08/13/2024 12:47 PM CDT [facility] Comment: Creatinine Clearance is the preferred criteria for selecting drug dose adjustments in renally impaired patients. ??The GFR is provided as additional pertinent clinical information. GFR is reported in mL/min/1.73 sq m. Calculation based on the Chronic Kidney Disease Epidemiology Collaboration (CKD- EPI) equation refit without adjustment for race. GFR, EST. >60 >=60 024 12:47 PM CDT [facility] GFR, EST. NONAFRICAN >60 >=60 08/13/2024 12:47 PM CDT [facility] Blood Sub-Q Port Venou s Access Device (Medi-Port, Implanted Port) / Unknown 08/13/2024 11:39 AM CDT 08/13/2024 11:39 AM CDT us Markus Finley MD CHEMISTRY ORDERABLES Fin al Result [facility] [address] [place] [address] * (ABNORMAL) CMP (COMPREHENSIVE METABOLIC PANEL) (08/08/2024 12:00 PM CDT) SODIUM 133(L) 136 - 145 mmol/L 08/08/2024 12:40 PM CDT [facility] POTASSIUM 3.6 3.5 - 5.1 mmol/L 08/08/2024 12:40 PM CDT [facility] CHLORIDE 108(H) 98 - 107 mmol/L 08/08/2024 12:40 PM CDT [facility] CO2, VENOUS 20(L) 22 - 30 mmol/L 08/08/2024 12:40 PM CDT [facility] ANION GAP 8.6 <18.0 mmol/L 08/08/2024 12:40 PM T [facility] GLUCOSE 143(H) 70 - 99 mg/dL 08/08/2024 12:40 PM T [facility] BUN 12 5 - 18 mg/dL 08/08/2024 12:40 PM [facility] CREATININE, BLOOD 1.00 0.60 - 1.00 mg/dL 08/08/2024 12:40 PM T [facility] BUN/CREATININE RATIO 12 12 - 20 ratio 08/08/2024 12:40 PM [facility] TOTAL PROTEIN 6.0(L) 6.3 - 8.2 g/dL 08/08/2024 12:40 PM [facility] ALBUMIN 3.4(L) 3.5 - 5.0 g/dL 08/08/2024 12:40 PM T [facility] A/G RATIO 1.3 1.0 - 2.2 08/08/2024 12:40 PM T [facility] CALCIUM 8.8 8.7 - 10.5 mg/dL 08/08/2024 12:40 PM T [facility] T BILI 0.5 0.2 - 1.2 mg/dL 08/08/2024 12:40 PM T [facility] SGOT (AST) 15 5 - 34 U/L 08/08/2024 12:40 PM T [facility] SGPT (ALT) 58(H) 0 - 55 U/L 08/08/2024 12:40 PM CDT [facility] ALKALINE PHOSPHATASE 71 40 - 150 U/L 08/08/2024 12:40 PM CDT [facility] IS THE PATIENT REQUIRED TO BE FASTING? No 08/08/2024 12:40 PM CDT [facility] GFR, ESTIMATED >60 >=60 08/08/2024 12:40 PM CDT [facility] Comment: Creatinine Clearance is the preferred criteria for selecting drug dose adjustments in renally impaired patients. ??The GFR is provided as additional pertinent clinical information. GFR is reported in mL/min/1.73 sq m. Calculation based on the Chronic Kidney Disease Epidemiology Collaboration (CKD- EPI) equation refit without adjustment for race. GFR, EST. >60 >=60 12:40 PM CDT [facility] GFR, EST. NONAFRICAN >60 >=60 08/08/2024 12:40 PM CDT [facility] Blood Sub-Q Port Venou s Access Device (Medi-Port, Implanted Port) / Unknown 08/08/2024 12:00 PM CDT 08/08/2024 12:00 PM CDT Markus Finley MD CHEMISTRY ORDERABLES Fin al Result [facility] [address] [place] [address] * (ABNORMAL) THYROID STIMULATING HORMONE (TSH) (08/01/2024 11:05 AM CDT) TSH 114.336(H) 0.300 - 5.000 mIU/L 08/01/2024 12:49 PM CDT [facility] Blood Venipuncture / Unknown 08/01/2024 11:05 AM CDT 08/01/2024 11:05 AM CDT Markus Finley MD CHEMISTRY ORDERABLES Fin al Result [facility] [address] [place] [address] * (ABNORMAL) CMP (COMPREHENSIVE METABOLIC PANEL) (08/01/2024 11:05 AM CDT) SODIUM 127(L) 136 - 145 mmol/L 08/01/2024 12:10 PM CDT [facility] POTASSIUM 3.3(L) 3.5 - 5.1 mmol/L 08/01/2024 12:10 PM CDT [facility] CHLORIDE 91(L) 98 - 107 mmol/L 08/01/2024 12:10 PM CDT [facility] CO2, VENOUS 15(L) 22 - 30 mmol/L 08/01/2024 12:10 PM CDT [facility] ANION GAP 24.3(H) <18.0 mmol/L 08/01/2024 12:10 PM CDT [facility] GLUCOSE 157(H) 70 - 99 mg/dL 08/01/2024 12:10 PM CDT [facility] BUN 29(H) 5 - 18 mg/dL 08/01/2024 12:10 PM CDT [facility] CREATININE, BLOOD 4.24(H) 0.60 - 1.00 mg/dL 08/01/2024 12:10 PM CDT [facility] BUN/CREATININE RATIO 7(L) 12 - 20 ratio 08/01/2024 12:10 PM CDT [facility] TOTAL PROTEIN 9.0(H) 6.3 - 8.2 g/dL 08/01/2024 12:10 PM CDT [facility] ALBUMIN 4.7 3.5 - 5.0 g/dL 08/01/2024 12:10 PM CDT [facility] A/G RATIO 1.1 1.0 - 2.2 08/01/2024 12:10 PM CDT [facility] CALCIUM 10.6(H) 8.7 - 10.5 mg/dL 08/01/2024 12:10 PM CDT [facility] T BILI 0.7 0.2 - 1.2 mg/dL 08/01/2024 12:10 PM CDT [facility] SGOT (AST) 22 5 - 34 U/L 08/01/2024 12:10 PM CDT [facility] SGPT (ALT) 53 0 - 55 U/L 08/01/2024 12:10 PM CDT [facility] ALKALINE PHOSPHATASE 85 40 - 150 U/L 08/01/2024 12:10 PM CDT [facility] IS THE PATIENT REQUIRED TO BE FASTING? No 08/01/2024 12:10 PM CDT [facility] GFR, ESTIMATED 14(L) >=60 08/01/2024 12:10 PM CDT [facility] Comment: Creatinine Clearance is the preferred criteria for selecting drug dose adjustments in renally impaired patients. ??The GFR is provided as additional pertinent clinical information. GFR is reported in mL/min/1.73 sq m. Calculation based on the Chronic Kidney Disease Epidemiology Collaboration (CKD- EPI) equation refit without adjustment for race. GFR, EST. 16(L) >=60 08/01/ 024 12:10 PM CDT [facility] GFR, EST. NONAFRICAN 13(L) >=60 08/01/2024 12:10 PM CDT [facility] Blood Venipuncture / Unknown 08/01/2024 11:05 AM CDT 08/01/2024 11:05 AM CDT us Markus Finley MD CHEMISTRY ORDERABLES Fin al Result [facility] [address] [place] [address] * (ABNORMAL) THYROID STIMULATING HORMONE (TSH) (07/25/2024 11:02 AM CDT) TSH 135.164(H) 0.300 - 5.000 mIU/L 07/25/2024 12:22 PM CDT [facility] Blood Sub-Q Port Venou s Access Device (Medi-Port, Implanted Port) / Unknown 07/25/2024 11:02 AM CDT 07/25/2024 11:02 AM CDT Markus Finley MD CHEMISTRY ORDERABLES Fin al Result [facility] [address] [place] [address] * (ABNORMAL) CMP (COMPREHENSIVE METABOLIC PANEL) (07/25/2024 11:02 AM CDT) Pathologist [facility] SODIUM 134(L) 136 - 145 mmol/L 07/25/2024 11:37 AM CDT [facility] POTASSIUM 2.5(LL) 3.5 - 5.1 mmol/L 07/25/2024 11:37 AM CDT [facility] CHLORIDE 93(L) 98 - 107 mmol/L 07/25/2024 11:37 AM CDT [facility] CO2, VENOUS 22 22 - 30 mmol/L 07/25/2024 11:37 AM CDT [facility] ANION GAP 21.5(H) <18.0 mmol/L 07/25/2024 11:37 AM CDT [facility] GLUCOSE 153(H) 70 - 99 mg/dL 07/25/2024 11:37 AM CDT [facility] BUN 30(H) 5 - 18 mg/dL 07/25/2024 11:37 AM CDT [facility] CREATININE, BLOOD 3.31(H) 0.60 - 1.00 mg/dL 07/25/2024 11:37 AM CDT [facility] BUN/CREATININE RATIO 9(L) 12 - 20 ratio 07/25/2024 11:37 AM CDT [facility] TOTAL PROTEIN 8.4(H) 6.3 - 8.2 g/dL 07/25/2024 11:37 AM [facility] ALBUMIN 4.5 3.5 - 5.0 g/dL 07/25/2024 11:37 AM [facility] A/G RATIO 1.2 1.0 - 2.2 07/25/2024 11:37 AM [facility] CALCIUM 10.2 8.7 - 10.5 mg/dL 07/25/2024 11:37 AM [facility] T BILI 0.9 0.2 - 1.2 mg/dL 07/25/2024 11:37 AM [facility] SGOT (AST) 14 5 - 34 U/L 07/25/2024 11:37 AM [facility] SGPT (ALT) 45 0 - 55 U/L 07/25/2024 11:37 AM [facility] ALKALINE PHOSPHATASE 90 40 - 150 U/L 07/25/2024 11:37 AM [facility] IS THE PATIENT REQUIRED TO BE FASTING? No 07/25/2024 11:37 AM [facility] GFR, ESTIMATED 19(L) >=60 07/25/2024 11:37 AM [facility] Comment: Creatinine Clearance is the preferred criteria for selecting drug dose adjustments in renally impaired patients. ??The GFR is provided as additional pertinent clinical information. GFR is reported in mL/min/1.73 sq m. Calculation based on the Chronic Kidney Disease Epidemiology Collaboration (CKD- EPI) equation refit without adjustment for race. GFR, EST. 21(L) >=60 024 11:37 AM [facility] GFR, EST. NONAFRICAN 17(L) >=60 07/25/2024 11:37 AM [facility] Blood Sub-Q Port Venou s Access Device (Medi-Port, Implanted Port) / Unknown 07/25/2024 11:02 AM CDT 07/25/2024 11:02 AM CDT us Markus Finley MD CHEMISTRY ORDERABLES Fin al Result [facility] [address] [place] [address] * (ABNORMAL) CMP (COMPREHENSIVE METABOLIC PANEL) (07/10/2024 1:28 PM CDT) Pathologist [facility] SODIUM 133(L) 136 - 145 mmol/L 07/10/2024 1:53 PM CDT [facility] POTASSIUM 3.9 3.5 - 5.1 mmol/L 07/10/2024 1:53 PM CDT [facility] CHLORIDE 109(H) 98 - 107 mmol/L 07/10/2024 1:53 PM CDT [facility] CO2, VENOUS 18(L) 22 - 30 mmol/L 07/10/2024 1:53 PM CDT [facility] ANION GAP 9.9 <18.0 mmol/L 07/10/2024 1:53 PM CDT [facility] GLUCOSE 143(H) 70 - 99 mg/dL 07/10/2024 1:53 PM CDT [facility] BUN 4(L) 5 - 18 mg/dL 07/10/2024 1:53 PM CDT [facility] CREATININE, BLOOD 0.85 0.60 - 1.00 mg/dL 07/10/2024 1:53 PM CDT [facility] BUN/CREATININE RATIO 5(L) 12 - 20 ratio 07/10/2024 1:53 PM CDT [facility] TOTAL PROTEIN 5.8(L) 6.3 - 8.2 g/dL 07/10/2024 1:53 PM CDT [facility] ALBUMIN 3.3(L) 3.5 - 5.0 g/dL 07/10/2024 1:53 PM CDT [facility] A/G RATIO 1.3 1.0 - 2.2 07/10/2024 1:53 PM CDT [facility] CALCIUM 8.6(L) 8.7 - 10.5 mg/dL 07/10/2024 1:53 PM CDT [facility] T BILI 0.4 0.2 - 1.2 mg/dL 07/10/2024 1:53 PM CDT [facility] SGOT (AST) 20 5 - 34 U/L 07/10/2024 1:53 PM CDT [facility] SGPT (ALT) 44 0 - 55 U/L 07/10/2024 1:53 PM CDT [facility] ALKALINE PHOSPHATASE 74 40 - 150 U/L 07/10/2024 1:53 PM CDT [facility] IS THE PATIENT REQUIRED TO BE FASTING? No 07/10/2024 1:53 PM CDT [facility] GFR, ESTIMATED >60 >=60 07/10/2024 1:53 PM CDT [facility] Comment: Creatinine Clearance is the preferred criteria for selecting drug dose adjustments in renally impaired patients. ??The GFR is provided as additional pertinent clinical information. GFR is reported in mL/min/1.73 sq m. Calculation based on the Chronic Kidney Disease Epidemiology Collaboration (CKD- EPI) equation refit without adjustment for race. GFR, EST. >60 >=60 024 1:53 PM CDT [facility] GFR, EST. NONAFRICAN >60 >=60 07/10/2024 1:53 PM CDT [facility] Blood Sub-Q Port Venou s Access Device (Medi-Port, Implanted Port) / Unknown 07/10/2024 1:28 PM CDT 07/10/2024 1:28 PM CDT us Markus Finley MD CHEMISTRY ORDERABLES Fin al Result [facility] [address] [place] [address] * (ABNORMAL) CMP (COMPREHENSIVE METABOLIC PANEL) (07/05/2024 9:24 AM CDT) SODIUM 132(L) 136 - 145 mmol/L 07/05/2024 10:05 AM T [facility] POTASSIUM 2.6(LL) 3.5 - 5.1 mmol/L 07/05/2024 10:05 AM CDT [facility] CHLORIDE 107 98 - 107 mmol/L 07/05/2024 10:05 AM T [facility] CO2, VENOUS 16(L) 22 - 30 mmol/L 07/05/2024 10:05 AM [facility] ANION GAP 11.6 <18.0 mmol/L 07/05/2024 10:05 AM T [facility] GLUCOSE 193(H) 70 - 99 mg/dL 07/05/2024 10:05 AM T [facility] BUN 7 5 - 18 mg/dL 07/05/2024 10:05 AM T [facility] CREATININE, BLOOD 1.03(H) 0.60 - 1.00 mg/dL 07/05/2024 10:05 AM [facility] BUN/CREATININE RATIO 7(L) 12 - 20 ratio 07/05/2024 10:05 AM [facility] TOTAL PROTEIN 6.1(L) 6.3 - 8.2 g/dL 07/05/2024 10:05 AM T [facility] ALBUMIN 3.4(L) 3.5 - 5.0 g/dL 07/05/2024 10:05 AM [facility] A/G RATIO 1.3 1.0 - 2.2 07/05/2024 10:05 AM [facility] CALCIUM 8.7 8.7 - 10.5 mg/dL 07/05/2024 10:05 AM [facility] T BILI 0.6 0.2 - 1.2 mg/dL 07/05/2024 10:05 AM [facility] SGOT (AST) 15 5 - 34 U/L 07/05/2024 10:05 AM CDT [facility] SGPT (ALT) 46 0 - 55 U/L 07/05/2024 10:05 AM CDT [facility] ALKALINE PHOSPHATASE 61 40 - 150 U/L 07/05/2024 10:05 AM CDT [facility] IS THE PATIENT REQUIRED TO BE FASTING? No 07/05/2024 10:05 AM CDT [facility] GFR, ESTIMATED >60 >=60 07/05/2024 10:05 AM CDT [facility] Comment: Creatinine Clearance is the preferred criteria for selecting drug dose adjustments in renally impaired patients. ??The GFR is provided as additional pertinent clinical information. GFR is reported in mL/min/1.73 sq m. Calculation based on the Chronic Kidney Disease Epidemiology Collaboration (CKD- EPI) equation refit without adjustment for race. GFR, EST. >60 >=60 024 10:05 AM CDT [facility] GFR, EST. NONAFRICAN >60 >=60 07/05/2024 10:05 AM CDT [facility] Blood Venipuncture / Unknown 07/05/2024 9:24 AM CDT 07/05/2024 9:24 AM CDT us Markus Finley MD CHEMISTRY ORDERABLES Fin al Result [facility] [address] [place] [address] * (ABNORMAL) CMP (COMPREHENSIVE METABOLIC PANEL) (07/04/2024 10:53 AM CDT) SODIUM 128(L) 136 - 145 mmol/L 07/04/2024 11:41 AM CDT [facility] POTASSIUM 2.7(LL) 3.5 - 5.1 mmol/L 07/04/2024 11:41 AM CDT [facility] CHLORIDE 102 98 - 107 mmol/L 07/04/2024 11:41 AM [facility] CO2, VENOUS 17(L) 22 - 30 mmol/L 07/04/2024 11:41 AM [facility] ANION GAP 11.7 <18.0 mmol/L 07/04/2024 11:41 AM [facility] GLUCOSE 150(H) 70 - 99 mg/dL 07/04/2024 11:41 AM [facility] BUN 11 5 - 18 mg/dL 07/04/2024 11:41 AM [facility] CREATININE, BLOOD 1.00 0.60 - 1.00 mg/dL 07/04/2024 11:41 AM [facility] BUN/CREATININE RATIO 11(L) 12 - 20 ratio 07/04/2024 11:41 AM [facility] TOTAL PROTEIN 6.5 6.3 - 8.2 g/dL 07/04/2024 11:41 AM [facility] ALBUMIN 3.6 3.5 - 5.0 g/dL 07/04/2024 11:41 AM [facility] A/G RATIO 1.2 1.0 - 2.2 07/04/2024 11:41 AM [facility] CALCIUM 8.8 8.7 - 10.5 mg/dL 07/04/2024 11:41 AM [facility] T BILI 0.7 0.2 - 1.2 mg/dL 07/04/2024 11:41 AM [facility] SGOT (AST) 19 5 - 34 U/L 07/04/2024 11:41 AM [facility] SGPT (ALT) 50 0 - 55 U/L 07/04/2024 11:41 AM [facility] ALKALINE PHOSPHATASE 67 40 - 150 U/L 07/04/2024 11:41 AM [facility] IS THE PATIENT REQUIRED TO BE FASTING? No 07/04/2024 11:41 AM CDT [facility] GFR, ESTIMATED >60 >=60 07/04/2024 11:41 AM CDT [facility] Comment: Creatinine Clearance is the preferred criteria for selecting drug dose adjustments in renally impaired patients. ??The GFR is provided as additional pertinent clinical information. GFR is reported in mL/min/1.73 sq m. Calculation based on the Chronic Kidney Disease Epidemiology Collaboration (CKD- EPI) equation refit without adjustment for race. GFR, EST. >60 >=60 024 11:41 AM CDT [facility] GFR, EST. NONAFRICAN >60 >=60 07/04/2024 11:41 AM CDT [facility] Blood Sub-Q Port Venou s Access Device (Medi-Port, Implanted Port) / Unknown 07/04/2024 10:53 AM CDT 07/04/2024 10:54 AM CDT Markus Finley MD CHEMISTRY ORDERABLES Fin al Result [facility] [address] [place] [address] * (ABNORMAL) CMP (COMPREHENSIVE METABOLIC PANEL) (06/12/2024 2:14 PM CDT) SODIUM 140 136 - 145 mmol/L 06/12/2024 4:04 PM CDT [facility] POTASSIUM 3.5 3.5 - 5.1 mmol/L 06/12/2024 4:04 PM CDT [facility] CHLORIDE 109(H) 98 - 107 mmol/L 06/12/2024 4:04 PM CDT [facility] CO2, VENOUS 23 22 - 30 mmol/L 06/12/2024 4:04 PM CDT [facility] ANION GAP 11.5 <18.0 mmol/L 06/12/2024 4:04 PM CDT [facility] GLUCOSE 136(H) 70 - 99 mg/dL 06/12/2024 4:04 PM T [facility] BUN 12 5 - 18 mg/dL 06/12/2024 4:04 PM [facility] CREATININE, BLOOD 0.73 0.60 - 1.00 mg/dL 06/12/2024 4:04 PM [facility] BUN/CREATININE RATIO 16 12 - 20 ratio 06/12/2024 4:04 PM [facility] TOTAL PROTEIN 6.4 6.3 - 8.2 g/dL 06/12/2024 4:04 PM [facility] ALBUMIN 3.6 3.5 - 5.0 g/dL 06/12/2024 4:04 PM [facility] A/G RATIO 1.3 1.0 - 2.2 06/12/2024 4:04 PM [facility] CALCIUM 9.1 8.7 - 10.5 mg/dL 06/12/2024 4:04 PM T [facility] T BILI 0.2 0.2 - 1.2 mg/dL 06/12/2024 4:04 PM [facility] SGOT (AST) 20 5 - 34 U/L 06/12/2024 4:04 PM [facility] SGPT (ALT) 37 0 - 55 U/L 06/12/2024 4:04 PM [facility] ALKALINE PHOSPHATASE 59 40 - 150 U/L 06/12/2024 4:04 PM [facility] IS THE PATIENT REQUIRED TO BE FASTING? No 06/12/2024 4:04 PM [facility] GFR, ESTIMATED >60 >=60 06/12/2024 4:04 PM [facility] Comment: Creatinine Clearance is the preferred criteria for selecting drug dose adjustments in renally impaired patients. ??The GFR is provided as additional pertinent clinical information. GFR is reported in mL/min/1.73 sq m. Calculation based on the Chronic Kidney Disease Epidemiology Collaboration (CKD- EPI) equation refit without adjustment for race. GFR, EST. >60 >=60 024 4:04 PM CDT [facility] GFR, EST. NONAFRICAN >60 >=60 06/12/2024 4:04 PM CDT [facility] Blood Sub-Q Port Venou s Access Device (Medi-Port, Implanted Port) / Unknown 06/12/2024 2:14 PM CDT 06/12/2024 2:14 PM CDT Markus Finely MD CHEMISTRY ORDERABLES Fin al Result Performing Organization Address City/[facility]/ZIP Co de Phone Number [facility] [address] [place] [address] * COMPLETE BLOOD COUNT (CBC) WITH DIFF [...] mcg/dL 05/01/2024 4:1 3 PM CDT [facility] Blood Venipuncture / Unknown 05/01/2024 2:38 PM CDT 05/01/2024 2:38 PM CDT Narrative [facility] - 05/01/2024 4:13 PM CDT AM: ??4 TO 19 mcg/dL PM: ??Approx. Half of AM Value ?? us Markus Finley MD CHEMISTRY ORDERABLES Fin al Result [facility] [address] [place] [address] documented in this encounter Visit Diagnoses Diagnosis [...] mg documented in this encounter Care Teams Avionics Installer Relationship Specialty Start Date End Date Pritesh Chu MD [address] [address] PCP - General Family Medicine 04/18/24 Markus Finley MD [address] [place] [address] Consulting Physician Medical Oncology 04/18/24 documented as of this encounter
--- OUTSIDE RECORDS SUMMARY | 2024-10-27 02:49 | XMS_ITS | Encounter Summary ---
Author Organization [facility] Address [address] [facility] [place] [address] Phone Care Team Providers Care Certified Hand Therapist Name Role Phone Pritesh Chu MD Primary Care Provider [phone] Markus Finley MD Unavailable [phone] Reason for Visit * Episode Based Medications (Routine) - Closed Specialty Diagnoses / Procedures Referred By Contross t Referred To Contact Diagnoses Metastatic melanoma (HCC) Markus Finley MD [address] [place] [address] Phone: tel: fax: [facility] [address] [place] [address] Phone: tel: fax: Referral ID Status Reason Start Date Expiration Date Visits Re quested Visits Authorized [id number] Closed 04/19/2024 1 30 Encounter Details Date Type Department Care Team (Late st Contact Info) Description 07/03/2024 9:30 AM CDT Clinical Support [facility] Oncology Services [address] [place] [phone] Markus Finley MD [address] [place] [address] Metastatic melanoma (HCC) (Primary Dx); Diarrhea due [...] In the past 12 months has e [employer], gas, oil, or water [employer] threatened to shut off services in your [...] and heating? Not hard at all 06/27/2024 [facility] [place] [facility] - Occupational Stress [...] st Contact Info) Description 11/15/2024 1:00 PM HEAD OF MARKETING ANALYTICS [facility] [address] [place] [address] Marksu Finley MD [address] [place] [address] 11/15/2024 2:00 PM HEAD OF MARKETING ANALYTICS [facility] [address] [place] [phone] Markus Finley MD [address] [place] [address] Discharge Disposition: Discharged to home or Selfcare [...] 10.0 % 07/03/2024 12:01 PM CDT [facility] NEUTROPHILS % 72.0 47.0 - 73.0 % 07/03/2024 12:01 PM CDT [facility] LYMPHOCYTES % 16.0(L) 18.0 - 42.0 % 07/03/2024 12:01 PM CDT [facility] MONOCYTES % 5.0 4.0 - 12.0 % 07/03/2024 12:01 PM CDT [facility] METAMYELOCYTES % 1.0(H) <=0.0 % 07/03/20 12:01 PM CDT [facility] NEUTROPHILS ABSOLUTE 14.67(H) 1.60 - 7.70 10(3)/mcL 07/03/2024 12:01 PM CDT [facility] LYMPHOCYTES ABSOLUTE 3.01 1.30 - 3.20 10(3)/mcL 07/03/2024 12:01 PM CDT [facility] MONOCYTES ABSOLUTE 0.94 0.20 - 1.00 10(3)/mcL 07/03/2024 12:01 PM CDT [facility] RBC MORPHOLOGY CONSISTENT WITH INDICES Yes 07/03/2024 12:01 PM CDT [facility] POLYCHROMASIA 1+ 07/03/2024 12:01 PM CDT [facility] LARGE PLATELETS 1+ 12:01 PM CDT [facility] WBC MORPH STATUS Normal 07/03/20 12:01 PM CDT [facility] Blood Sub-Q Port Venou s Access Device (Medi-Port, Implanted Port) / Unknown 07/03/2024 10:29 AM CDT 07/03/2024 10:29 AM CDT us Markus Finley MD HEMATOLOGY ORDERABLES Fi nal Result [facility] [address] [place] [address] * (ABNORMAL) CBC WITH AUTO DIFFERENTIAL (07/03/2024 10:29 AM CDT) WBC 18.81(H) 4.00 - 12.00 10(3)/mcL 07/03/2024 12:01 PM CDT [facility] RBC 6.30(H) 3.80 - 5.30 10(6)/mcL 07/03/2024 12:01 PM CDT [facility] HEMOGLOBIN (HGB) 18.5(H) 12.0 - 15.8 g/dL 07/03/2024 12:01 PM CDT [facility] HEMATOCRIT (HCT) 52.1(H) 36.0 - 47.0 % 07/03/2024 12:01 PM CDT [facility] MCV 82.7 82.0 - 96.0 fL 07/03/2024 12:01 PM CDT [facility] MCH 29.4 26.0 - 34.0 pg 07/03/2024 12:01 PM CDT [facility] MCHC 35.5 31.0 - 36.0 g/dL 07/03/2024 12:01 PM CDT [facility] PLATELET COUNT 436 140 - 440 10(3)/[facility] 07/03/2024 12:01 PM CDT [facility] RDW 12.8 11.8 - 15.5 % 07/03/2024 12:01 PM CDT [facility] MPV 10.2 9.7 - 12.4 fL 07/03/2024 12:01 PM CDT [facility] NRBC PER 100 WBC 0 07/03/2024 12:01 PM CDT [facility] RESULTS ARE CONSISTENT WITH PERIPHERAL SMEAR REVIEW Yes 07/03/2024 12:01 PM CDT [facility] Blood Sub-Q Port Venou s Access Device (Medi-Port, Implanted Port) / Unknown 07/03/2024 10:29 AM CDT 07/03/2024 10:29 AM CDT us Markus Finley MD HEMATOLOGY ORDERABLES Fi nal Result [facility] [address] [place] [address] * ADRENOCORTICOTROPIC HORMONE, P, MILLER ACTH (07/03/2024 10:29 AM CDT) ADRENOCORTICOTROPIC HORMONE (ACTH) 8.7 pg/mL 07/04/2024 12:18 PM CDT [facility] Comment: REFERENCE VALUE 7.2-63 (a.m. collection) Test Performed by: [place] [id number] Furnace Tapper: Ernie Page Ph.D.; CLIA# [id number] Blood Sub-Q Port Venou s Access Device (Medi-Port, Implanted Port) / Unknown 07/03/2024 10:29 AM CDT 07/03/2024 10:29 AM CDT Markus Finley MD LAB SEND OUTS Final Re sult [facility] US * (ABNORMAL) THYROXINE (T4) FREE (07/03/2024 10:29 AM CDT) Pathologist [facility] T4 FREE <0.4(L) 0.7 - 1.9 ng/dL 07/03/2024 11:55 AM CDT [facility] Blood Sub-Q Port Venou s Access Device (Medi-Port, Implanted Port) / Unknown 07/03/2024 10:29 AM CDT 07/03/2024 10:29 AM CDT Markus Finley MD CHEMISTRY ORDERABLES Fin al Result [facility] [address] [place] [address] * CORTISOL (07/03/2024 10:29 AM CDT) CORTISOL 18.9 mcg/dL 07/03/2024 11:32 AM CDT [facility] Blood Sub-Q Port Venou s Access Device (Medi-Port, Implanted Port) / Unknown 07/03/2024 10:29 AM CDT 07/03/2024 10:29 AM CDT Narrative [facility] - 07/03/2024 11:32 AM CDT AM: ??4 TO 19 mcg/dL PM: ??Approx. Half of AM Value ?? Markus Finley MD CHEMISTRY ORDERABLES Fin al Result Performing Organization Address City/[facility]/ZIP Co de Phone Number [facility] [address] [place] [address] * (ABNORMAL) TRIIODOTHYRININE (T3) FREE (07/03/2024 10:29 AM CDT) FREE T3 <1.5(L) 1.6 - 3.9 pg/mL 07/03/2024 4:27 PM CDT [facility] Blood Sub-Q Port Venou s Access Device (Medi-Port, Implanted Port) / Unknown 07/03/2024 10:29 AM CDT 07/03/2024 10:29 AM CDT Markus Finley MD CHEMISTRY ORDERABLES Fin al Result [facility] [address] [place] [address], * (ABNORMAL) THYROID STIMULATING HORMONE (TSH) (07/03/2024 10:29 AM CDT) TSH 42.415(H) 0.300 - 5.000 mIU/L 07/03/2024 11:32 AM CDT [facility] Blood Sub-Q Port Venou s Access Device (Medi-Port, Implanted Port) / Unknown 07/03/2024 10:29 AM CDT 07/03/2024 10:29 AM CDT us Markus Finley MD CHEMISTRY ORDERABLES Jacob al Result [facility] [address] [place] [address] * (ABNORMAL) CMP (COMPREHENSIVE METABOLIC PANEL) (07/03/2024 10:29 AM CDT) SODIUM 125(L) 136 - 145 mmol/L 07/03/2024 11:17 AM CDT [facility] POTASSIUM 3.0(L) 3.5 - 5.1 mmol/L 07/03/2024 11:17 AM CDT [facility] CHLORIDE 99 98 - 107 mmol/L 07/03/2024 11:17 AM CDT [facility] CO2, VENOUS 12(L) 22 - 30 mmol/L 07/03/2024 11:17 AM CDT [facility] ANION GAP 17.0 <18.0 mmol/L 07/03/2024 11:17 AM CDT [facility] GLUCOSE 150(H) 70 - 99 mg/dL 07/03/2024 11:17 AM CDT [facility] BUN 23(H) 5 - 18 mg/dL 07/03/2024 11:17 AM CDT [facility] CREATININE, BLOOD 1.55(H) 0.60 - 1.00 mg/dL 07/03/2024 11:17 AM CDT [facility] BUN/CREATININE RATIO 15 12 - 20 ratio 07/03/2024 11:17 AM CDT [facility] TOTAL PROTEIN 7.7 6.3 - 8.2 g/dL 07/03/2024 11:17 AM CDT [facility] ALBUMIN 4.2 3.5 - 5.0 g/dL 07/03/2024 11:17 AM CDT [facility] A/G RATIO 1.2 1.0 - 2.2 07/03/2024 11:17 AM CDT [facility] CALCIUM 9.4 8.7 - 10.5 mg/dL 07/03/2024 11:17 AM CDT [facility] T BILI 0.9 0.2 - 1.2 mg/dL 07/03/2024 11:17 AM CDT [facility] SGOT (AST) 28 5 - 34 U/L 07/03/2024 11:17 AM CDT [facility] SGPT (ALT) 64(H) 0 - 55 U/L 07/03/2024 11:17 AM CDT [facility] ALKALINE PHOSPHATASE 79 40 - 150 U/L 07/03/2024 11:17 AM CDT [facility] IS THE PATIENT REQUIRED TO BE FASTING? No 07/03/2024 11:17 AM CDT [facility] GFR, ESTIMATED 48(L) >=60 07/03/2024 11:17 AM CDT [facility] Comment: Creatinine Clearance is the preferred criteria for selecting drug dose adjustments in renally impaired patients. ??The GFR is provided as additional pertinent clinical information. GFR is reported in mL/min/1.73 sq m. Calculation based on the Chronic Kidney Disease Epidemiology Collaboration (CKD- EPI) equation refit without adjustment for race. GFR, EST. 50(L) >=60 024 11:17 AM CDT [facility] GFR, EST. NONAFRICAN 41(L) >=60 07/03/2024 11:17 AM CDT [facility] Blood Sub-Q Port Venou s Access Device (Medi-Port, Implanted Port) / Unknown 07/03/2024 10:29 AM CDT 07/03/2024 10:29 AM CDT us Markus Finley MD CHEMISTRY ORDERABLES Fin al Result [facility] [address] [place] [address] documented in this encounter Visit Diagnoses Diagnosis [...] mEq documented in this encounter Care Teams Certified Hand Therapist Relationship Specialty Start Date End Date Pritesh Chu MD [address] [address] PCP - General Family Medicine 04/18/24 Markus Finley MD [address] [place] [address] Consulting Physician Medical Oncology 04/18/24 documented as of this encounter
--- OUTSIDE RECORDS SUMMARY | 2024-10-27 02:49 | XMS_ITS | Encounter Summary ---
Author Organization [facility] Address [address] [facility] [place] [address] Phone Care Team Providers Care Utility Locate Technician Name Role Phone Pritesh Chu MD Primary Care Provider [phone] Markus Finley MD Unavailable [phone] Encounter Details Date Type Department Care Team (Late st Contact Info) Description 07/05/2024 9:00 AM CDT Clinical Support [facility] On[facility] Services [address] [place] [phone] Jenn Medellin [place], PAC [address] [place] [address] Potassium (K) deficiency (Primary Dx); Metastatic melanoma [...] Recorded In the past 12 months has [employer] oil, or [employer] threatened to shut off services in your [...] and heating? Not hard at all 06/27/2024 [facility] Questionnaire Answer Date [...] st Contact Info) Description 11/15/2024 1:00 PM CHART CALCULATOR [facility] [address] [place] [address] Markus Finley MD [address] [place] [address] 11/15/2024 2:00 PM CHART CALCULATOR [facility] [address] [place] [address] Markus Finley MD [address] [place], [place] [id number] Discharge Disposition: Discharged to home or Selfcare documented as of this encounter Procedures Procedure Name Priority Date/Time Associated Diagnosis Comments MAGNESIUM (MG) STAT 07/05/2024 9:24 AM CDT CMP (COMPREHENSIVE METABOLIC PANEL) STAT 07/05/2024 9:24 AM CDT Metastatic melanoma (HCC) documented in this encounter Results * MAGNESIUM (MG) (07/05/2024 9:24 AM CDT) MAGNESIUM 2.4 1.6 - 2.6 mg/dL 07/05/2024 10:33 AM CDT [email or web address] Blood Venipuncture / Unknown 07/05/2024 9:24 AM CDT 07/05/2024 10:21 AM CDT us Markus Finley MD CHEMISTRY ORDERABLES Fin al Result [email or web address] LAB [address] [place] [address] * (ABNORMAL) CMP (COMPREHENSIVE METABOLIC PANEL) (07/05/2024 [...] 5 - 18 mg/dL 07/05/2024 10:05 AM [facility] CREATININE, BLOOD 1.03(H) 0.60 - 1.00 mg/dL 07/05/2024 10:05 AM [facility] BUN/CREATININE RATIO 7(L) 12 - 20 ratio 07/05/2024 10:05 AM [facility] TOTAL PROTEIN 6.1(L) 6.3 - 8.2 g/dL 07/05/2024 10:05 AM T [facility] ALBUMIN 3.4(L) 3.5 - 5.0 g/dL 07/05/2024 10:05 AM [facility] A/G RATIO 1.3 1.0 - 2.2 [...] Result [facility] [address] [place] [address] documented in this encounter Visit Diagnoses Diagnosis [...] mEq documented in this encounter Care Teams Utility Locate Technician Relationship Specialty Start Date End Date Pritesh Chu MD [address] [place] [address] PCP - General Family Medicine 04/18/24 Markus Finley MD [address] [place] [address] Consulting Physician Medical Oncology 04/18/24 documented as of this encounter
--- OUTSIDE RECORDS SUMMARY | 2024-10-27 02:49 | XMS_ITS | Encounter Summary ---
Author Organization [facility] Address [address] [place] [address] Phone Care Team Providers Care Aviation Maintenance Technician Name Role Phone Pritesh Chu MD Primary Care Provider [phone] Markus Finley MD Unavailable [phone] Encounter Details Date Type Department Care Team (Late st Contact Info) Description 06/26/2024 Telephone [facility] On[facility] Services [address] [place] [phone] Markus Finley MD [address] [place] [address] Social History Tobacco Use Types Packs/Day Years Used Date Smoking Tobacco: Former Cigarettes 0.5 8.5 S tarted: 04/18/2016 Smokeless Tobacco: Never Alcohol Use Standard Drinks/Week Comments Yes 0 (1 standard drink = 0.6 oz pur e alcohol) [facility] Utilities Answer Date Recorded In [...] often do you attend chur ch or orthodoxy services? Never 06/27/2024 Do you belong to [...] and heating? Not hard at all 06/27/2024 [facility] - [...] Contact Info) Description 11/15/2024 1:00 PM COMPENSATION CONSULTANT Lab [facility] Laboratory Services [address] [facility] [address] Markus Finley MD [address] [place] [address] 11/15/2024 2:00 PM COMPENSATION CONSULTANT Appointment [facility] MRI 1 [facility] [place] [address] Markus Finley MD [address] [place] [address] Discharge Disposition: Discharged to home or Selfcare documented as of this encounter Visit Diagnoses Not on filedocumented in this encounter Care Teams Aviation Maintenance Technician Relationship Specialty Start Date End Date Pritesh Chu MD [address] [address] PCP - General Family Medicine 04/18/24 Markus Finley MD [address] [place] [address] Consulting Physician Medical Oncology 04/18/24 documented as of this encounter
--- OUTSIDE RECORDS SUMMARY | 2024-10-27 02:49 | XMS_ITS | Encounter Summary ---
Author Organization [facility] Address [address] [place] [address] Phone Care Team Providers Care Control Integration Engineer Name Role Phone Pritesh Chu MD Primary Care Provider [phone] Markus Finley MD Unavailable [phone] Reason for Visit * Reason Onset Date Comments Follow-up 07/02/2024 Encounter Details Date Type Department Care Team (Late st Contact Info) Description 07/02/2024 Post Discharge Follow[facility]up [facility] Nursing Services [address] [place] [address] Arline Rojo, RN [place] Social History Tobacco Use Types Packs/Day Years Used Date Smoking Tobacco: Former Cigarettes 0.5 8.5 S tarted: 04/18/2016 Smokeless Tobacco: Never Alcohol Use Standard Drinks/Week Comments Yes 0 (1 standard drink = 0.6 oz pur e alcohol) [facility] Utilities Answer Date Recorded In [...] any clubs o r organizations such as roman catholic groups, unions, fraternal or athletic groups, [...] and heating? Not hard at all 06/27/2024 [facility]at [facility] - [...] to follow up after recent discharge from [facility] Med-Surg Unit. How are you feeling? I'm [...] st Contact Info) Description 11/15/2024 1:00 PM CONTRACT PROJECT MANAGER Lab [facility] Laboratory Services [address] [place] [address] Markus Finley MD [address] [place] [address] 11/15/2024 2:00 PM CONTRACT PROJECT MANAGER Appointment [facility] MRI [address] [place] [phone] Markus Finley MD [address] [place] [address] Discharge Disposition: Discharged to home or Selfcare documented as of this encounter Visit Diagnoses Not on filedocumented in this encounter Care Teams Control Integration Engineer Relationship Specialty Start Date End Date Pritesh Chu MD [address] [address] PCP - General Family Medicine 04/18/24 Markus Finley MD [address] [place] [address] Consulting Physician Medical Oncology 04/18/24 documented as of this encounter
--- OUTSIDE RECORDS SUMMARY | 2024-10-27 02:49 | XMS_ITS | Encounter Summary ---
Author Organization [facility] Care Team Providers Care Marine Reporter Name Role Phone Pritesh Chu MD Primary Care Provider [phone] Markus Finley MD Unavailable Encounter Details Date [...] st Contact Info) Description 11/15/2024 1:00 PM ENTRY LEVEL PROJECT ENGINEER Lab [facility] Laboratory Services [address] [place] [phone] Markus Finley MD [address] [place] [address] 11/15/2024 2:00 PM ENTRY LEVEL PROJECT ENGINEER [facility]ointment [facility] MRI [address] [place] [address] Markus Finley MD [address] [place] [address] Discharge Disposition: Discharged to home or Selfcare documented as of this encounter Visit Diagnoses Not on filedocumented in this encounter Care Teams Marine Reporter Relationship Specialty Start Date End Date Pritesh Chu MD [address] [place] [address] PCP - General Family Medicine 04/18/24 Markus Finley MD [address] [place] [address] Consulting Physician Medical Oncology 04/18/24 documented as of this encounter
--- OUTSIDE RECORDS SUMMARY | 2024-10-27 02:49 | XMS_ITS | Encounter Summary ---
Author Organization [facility] Address [address] [facility] [place] [address] Phone Care Team Providers Care Supervisory Training Specialist Name Role Phone Pritesh Chu MD Primary Care Provider [phone] Markus Finley MD Unavailable [phone] Encounter Details Date Type Department Care Team (Late st Contact Info) Description 07/04/2024 10:30 AM CDT Clinical Support [facility] Oncology Services [address] [place] [phone] Markus Finley MD [address] [place] [address] Metastatic melanoma (HCC) Discharge Disposition: Discharged to home or Selfcare Social History Tobacco Use Types Packs/Day Years Used Date Smoking Tobacco: Former Cigarettes 0.5 8.5 S tarted: 04/18/2016 Smokeless Tobacco: Never Alcohol Use Standard Drinks/Week Comments Yes 0 (1 standard drink = 0.6 oz pur e alcohol) [facility] Utilities Answer Date Recorded In the past 12 months has [employer], gas, oil, or water [employer] threatened to shut off services in your [...] attend chur ch or baptism services? Never 06/27/2024 Do you belong to [...] and heating? Not hard at all 06/27/2024 [facility]at ional [facility] [...] 80mg of prednisone this morning. Patient to spanish moss picker potassium from the pharmacy tonight. Patient to [...] Contact Info) Description 11/15/2024 1:00 PM PHYSICAL THERAPY TECHNICIAN [facility] [address] [place] [address] Markus Finley MD [address] [place] [address] 11/15/2024 2:00 PM PHYSICAL THERAPY TECHNICIAN [facility] [address] [place] [address] Markus Finley MD [address] [place], [place] [address] Discharge Disposition: Discharged to home or Selfcare documented as of this encounter Procedures Procedure Name Priority Date/Time Associated Diagnosis Comments CMP (COMPREHENSIVE METABOLIC PANEL) STAT 07/04/2024 10:53 AM CDT Metastatic melanoma (HCC) documented in this encounter Results * (ABNORMAL) CMP (COMPREHENSIVE METABOLIC PANEL) (07/04/2024 10:53 AM CDT) SODIUM 128(L) 136 - 145 mmol/L 07/04/2024 11:41 AM CDT [facility] POTASSIUM 2.7(LL) 3.5 - 5.1 mmol/L 07/04/2024 11:41 AM CDT [facility] CHLORIDE 102 98 - 107 mmol/L 07/04/2024 11:41 AM CDT [facility] CO2, VENOUS 17(L) 22 - 30 mmol/L 07/04/2024 11:41 AM T [facility] ANION GAP 11.7 <18.0 mmol/L 07/04/2024 11:41 AM T [facility] GLUCOSE 150(H) 70 - 99 mg/dL 07/04/2024 11:41 AM CDT [facility] BUN 11 5 - 18 mg/dL 07/04/2024 11:41 AM CDT [facility] CREATININE, BLOOD 1.00 0.60 - 1.00 mg/dL 07/04/2024 11:41 AM T [facility] BUN/CREATININE RATIO 11(L) 12 - 20 ratio 07/04/2024 11:41 AM T [facility] TOTAL PROTEIN 6.5 6.3 - 8.2 g/dL 07/04/2024 11:41 AM T [facility] ALBUMIN 3.6 3.5 - 5.0 g/dL 07/04/2024 11:41 AM T [facility] A/G RATIO 1.2 1.0 - 2.2 07/04/2024 11:41 AM T [facility] CALCIUM 8.8 8.7 - 10.5 mg/dL 07/04/2024 11:41 AM [facility] T BILI 0.7 0.2 - 1.2 mg/dL 07/04/2024 11:41 AM T [facility] SGOT (AST) 19 5 - 34 U/L 07/04/2024 11:41 AM T [facility] SGPT (ALT) 50 0 - 55 U/L 07/04/2024 11:41 AM T [facility] ALKALINE PHOSPHATASE 67 40 - 150 U/L 07/04/2024 11:41 AM T [facility] IS THE PATIENT REQUIRED TO BE FASTING? No 07/04/2024 11:41 AM CDT [facility] GFR, ESTIMATED >60 >=60 07/04/2024 11:41 AM CDT [facility] Comment: Creatinine Clearance is the preferred criteria for selecting drug dose adjustments in renally impaired patients. ??The GFR is provided as additional pertinent clinical information. GFR is reported in mL/min/1.73 sq m. Calculation based on the Chronic Kidney Disease Epidemiology Collaboration (CKD- EPI) equation refit without adjustment for race. GFR, EST. >60 >=60 024 11:41 AM CDT [facility] GFR, EST. NONAFRICAN >60 >=60 07/04/2024 11:41 AM CDT [facility] Blood Sub-Q Port Venou s Access Device (Medi-Port, Implanted Port) / Unknown 07/04/2024 10:53 AM CDT 07/04/2024 10:54 AM CDT Markus Luana Finley MD CHEMISTRY ORDERABLES Fin al Result [facility] [address] [place] [address] documented in this encounter Visit Diagnoses Diagnosis [...] mEq documented in this encounter Care Teams Supervisory Training Specialist Relationship Specialty Start Date End Date Pritesh Chu MD [address] [address] PCP - General Family Medicine 04/18/24 Markus Finley MD [address] [place] [address] Consulting Physician Medical Oncology 04/18/24 documented as of this encounter
--- OUTSIDE RECORDS SUMMARY | 2024-10-27 02:49 | XMS_ITS | Encounter Summary ---
Author Organization [facility] Care Team Providers Care Cloth Printing Back Tender Name Role Phone Pritesh Chu MD Primary Care Provider [phone] Markus Finley MD Unavailable [phone] Encounter Details Date Type Department Care Team [...] st Contact Info) Description 11/15/2024 1:00 PM GROCERY BAGGER Lab [facility] Laboratory Services [address] [place] [phone] Markus Finley MD [address] [place] [address] 11/15/2024 2:00 PM GROCERY BAGGER Appointment [facility] MRI [address] [place] [address] Markus Finley MD [address] [place] [address] Discharge Disposition: Discharged to home or Selfcare documented as of this encounter Visit Diagnoses Not on filedocumented in this encounter Care Teams Cloth Printing Back Tender Relationship Specialty Start Date End Date Pritesh Chu MD [address] [place] [address] PCP - General Family Medicine 04/18/24 Markus Finley MD [address] [place] [address] Consulting Physician Medical Oncology 04/18/24 documented as of this encounter
--- OUTSIDE RECORDS SUMMARY | 2024-10-27 02:49 | XMS_ITS | Encounter Summary ---
Author Organization [facility] Care Team Providers Care Laundry Presser Name Role Phone Pritesh Chu MD Primary Care Provider [phone] Markus Finley MD Unavailable [phone] Encounter Details Date Type Department Care Team [...] st Contact Info) Description 11/15/2024 1:00 PM LOAN CLOSER Lab [facility] Laboratory Services [address] [place] [phone] Markus Finley MD [address] [place] [address] 11/15/2024 2:00 PM LOAN CLOSER Appointment [facility] MRI [address] [place] [address] Markus Finley MD [address] [place] [address] Discharge Disposition: Discharged to home or Selfcare documented as of this encounter Visit Diagnoses Not on filedocumented in this encounter Care Teams Laundry Presser Relationship Specialty Start Date End Date Pritesh Chu MD [address] [address] PCP - General Family Medicine 04/18/24 Markus Finley MD [address] [place] [address] Consulting Physician Medical Oncology 04/18/24 documented as of this encounter
--- OUTSIDE RECORDS SUMMARY | 2024-10-27 02:49 | XMS_ITS | Encounter Summary ---
Author Organization [facility] Care Team Providers Care Information Systems Project Manager Name Role Phone Pritesh Chu MD Primary Care Provider [phone] Markus Finley MD Unavailable Encounter Details Date [...] Recorded In the past 12 months has [employer], gas, oil, or water [employer] threatened to shut off services in your [...] attend chur ch or cheondoism services? Never 06/27/2024 Do you belong to [...] and heating? Not hard at all 06/27/2024 [facility] [place] of Occupat ional Health - Occupational Stress [...] or living in a residential (including now)? No 06/27/2024 Comments No Sex [...] st Contact Info) Description 11/15/2024 1:00 PM HOLISTIC SPECIALIST Lab [facility] Laboratory Services [address] [place] [phone] Markus Finley MD [address] [place] [address] 11/15/2024 2:00 PM HOLISTIC SPECIALIST Appointment [facility] MRI [address] [place] [phone] Markus Finley MD [address] [place] [address] Discharge Disposition: Discharged to home or Selfcare documented as of this encounter Visit Diagnoses Not on filedocumented in this encounter Care Teams Information Systems Project Manager Relationship Specialty Start Date End Date Pritesh Chu MD [address] [address] PCP - General Family Medicine 04/18/24 Markus Finley MD [address] [place] [address] Consulting Physician Medical Oncology 04/18/24 documented as of this encounter
--- OUTSIDE RECORDS SUMMARY | 2024-10-27 02:49 | XMS_ITS | Encounter Summary ---
Author Organization [facility] Address [address] [place] [address] Phone Care Team Providers Care Plaster Mechanic Name Role Phone Pritesh Chu MD Primary Care Provider [phone] Markus Finley MD Unavailable Encounter Details Date Type Department Care Team (Late st Contact Info) Description 05/18/2024 Documentation Only [facility] Oncology Services [address] [place] [phone] Markus Finley MD [address] [place] [address] Social History Tobacco Use Types Packs/Day Years [...] Contact Info) Description 11/15/2024 1:00 PM COIL WINDER REPAIR [facility] [address] [place] [address] Markus Finley MD [address] [place] [address] 11/15/2024 2:00 PM COIL WINDER REPAIR [facility]ointment [facility] [address] [place] [address] Markus Finley MD [address] [place] [address] Discharge Disposition: Discharged to home or Selfcare documented as of this encounter Visit Diagnoses Not on filedocumented in this encounter Care Teams Plaster Mechanic Relationship Specialty Start Date End Date Pritesh Chu MD [address] [place], [place] [phone] PCP - General Family Medicine 04/18/24 Markus Finley MD [address] [place] [address] Consulting Physician Medical Oncology 04/18/24 documented as of this encounter
--- OUTSIDE RECORDS SUMMARY | 2024-10-27 02:49 | XMS_ITS | Encounter Summary ---
Author Organization [facility] Address [address] [facility] [place] [address] Phone Care Team Providers Care Commercial Insurance Underwriter Name Role Phone Pritesh Chu MD Primary Care Provider [phone] Markus Finley MD Unavailable [phone] Encounter Details Date Type Department Care Team (Late st Contact Info) Description 06/20/2024 Telephone [facility] Oncology Services [address] [place] [address] Jennifer Bellamy, PERMACULTURE CONTRACTOR [place] Social History Tobacco Use Types Packs/Day [...] st Contact Info) Description 11/15/2024 1:00 PM RESOLUTION AGENT Lab [facility] [address] [place] [address] Markus Finley MD [address] [place] [address] 11/15/2024 2:00 PM RESOLUTION AGENT [facility]ment [facility] [address] [place] [address] Markus Finley MD [address] [place] [address] Discharge Disposition: Discharged to home or Selfcare documented as of this encounter Visit Diagnoses Not on filedocumented in this encounter Care Teams Commercial Insurance Underwriter Relationship Specialty Start Date End Date Pritesh Chu MD [address] [address] PCP - General Family Medicine 04/18/24 Markus Finley MD [address] [place] [address] Consulting Physician Medical Oncology 04/18/24 documented as of this encounter
--- OUTSIDE RECORDS SUMMARY | 2024-10-27 02:49 | XMS_ITS | Encounter Summary ---
Author Organization [facility] Address [address] [place] [address] Phone Care Team Providers Care Dog Races Manager Name Role Phone Pritesh Chu MD Primary Care Provider Markus Finley MD Unavailable [phone] Encounter Details Date Type Department Care Team (Late st Contact Info) Description 05/24/2024 [facility]phone [facility] Oncology Services [address] [place] [phone] Markus Finley MD [address] [place] [address] Social History Tobacco Use Types Packs/Day Years [...] st Contact Info) Description 11/15/2024 1:00 PM TORCH CUTTER [facility] [address] [place] [address] Markus Finley MD [address] [place] [address] 11/15/2024 2:00 PM TORCH CUTTER [facility]ment [facility] [address] [place] [address] Markus Finley MD [address] [place] [address] Discharge Disposition: Discharged to home or Selfcare documented as of this encounter Visit Diagnoses Not on filedocumented in this encounter Care Teams Dog Races Manager Relationship Specialty Start Date End Date Pritesh Chu MD [address] [place] [address] PCP - General Family Medicine 04/18/24 Markus Finley MD [address] [place] [address] Consulting Physician Medical Oncology 04/18/24 documented as of this encounter
--- OUTSIDE RECORDS SUMMARY | 2024-10-27 02:49 | XMS_ITS | Encounter Summary ---
Author Organization [facility] Address [address] [place] [address] Phone Care Team Providers Care Clamshell Operator Name Role Phone Pritesh Chu MD Primary Care Provider [phone] Markus Finley MD Unavailable Reason for Visit * Reason Comments Follow-up Encounter Details Date Type Department Care Team (Late st Contact Info) Description 06/12/2024 2:45 PM CDT [facility] [address] [place] [phone] Markus Finley MD [address] [place] [address] Jenn Medellin [place], [address] [place] [address] Metastatic melanoma (HCC) (Primary Dx); Abnormal TSH [...] labs for CMP, TSH, T3, T4. Contact client service administrator for excision of lesions to dorsal aspect [...] labs for CMP, TSH, T3, T4. Contact client service administrator for excision of lesions to dorsal aspect [...] labs for CMP, TSH, T3, T4. Contact client service administrator for excision of lesions to dorsal aspect [...] st Contact Info) Description 11/15/2024 1:00 PM ENGINE REPAIRER Lab [facility] Laboratory Services [address] [place] [address] Markus Finley MD [address] [place] [address] 11/15/2024 2:00 PM ENGINE REPAIRER [facility]ointment [facility] MRI [address] [place] [address] Markus Finley MD [address] [place] [address] Discharge Disposition: Discharged to home or Selfcare documented as of this encounter Results * TRIIODOTHYRININE (T3) TOTAL (06/12/2024 2:14 PM CDT) T3 107 40 - 193 ng/dL 06/12/2024 9:46 PM CDT [facility] Blood Sub-Q Port Venou s Access Device (Medi-Port, Implanted Port) / Unknown 06/12/2024 2:14 PM CDT 06/12/2024 2:14 PM CDT [facility] PAC CHEMISTRY ORDERABLES Susan l Result [facility] [address] [place] [address], [place] * THYROXINE (T4) FREE (06/12/2024 2:14 PM CDT) T4 FREE 0.8 0.7 - 1.9 ng/dL 06/12/2024 4:25 PM CDT [facility] Blood Sub-Q Port Venou s Access Device (Medi-Port, Implanted Port) / Unknown 06/12/2024 2:14 PM CDT 06/12/2024 2:14 PM CDT [facility] PAC CHEMISTRY ORDERABLES Susan l Result [facility] [address] [place] [address] documented in this encounter Visit Diagnoses Diagnosis Metastatic melanoma (HCC)- Primary Melanoma of skin, site unspecified Abnormal TSH Other abnormal clinical finding documented in this encounter Care Teams Clamshell Operator Relationship Specialty Start Date End Date Pritesh Chu MD [address] [address] PCP - General Family Medicine 04/18/24 Markus Finley MD [address] [place] [address] Consulting Physician Medical Oncology 04/18/24 documented as of this encounter
--- OUTSIDE RECORDS SUMMARY | 2024-10-27 02:49 | XMS_ITS | Encounter Summary ---
Author Organization [facility] Address [address] [place] [address] Phone Care Team Providers Care Airplane Inspector Name Role Phone Pritesh Chu MD Primary Care Provider Markus Finley MD Unavailable [phone] Reason for Visit * Reason Comments Follow-up Encounter Details Date Type Department Care Team (Late st Contact Info) Description 07/03/2024 9:00 AM CDT [facility] [address] [place] [phone] Markus Finley MD [address] [place] [address] Metastatic melanoma (HCC) (Primary Dx); Functional diarrhea; [...] and heating? Not hard at all 06/27/2024 [facility] of Occupat ional Health - [...] any time in the past 12 m [facility], were you homeless or living [...] on 05/01/24. She was recently admitted to [facility] for fever with associated nausea with [...] on 05/01/24. She was recently admitted to [facility] for fever with associated nausea with [...] IMAGING STUDIES: CT abdomen pelvis done at [facility] on 06/27/2024 No evidence of appendicitis. [...] go to exchange after hours. 9. Check [id number] in the blood today. Tempus XT on [...] st Contact Info) Description 11/15/2024 1:00 PM DIE CAST ENGINEER [facility] [address] [place] [address] Markus Finley MD [address] [place] [address] 11/15/2024 2:00 PM DIE CAST ENGINEER [facility]ointment [facility] 1 [facility] [place] [address] Markus Finley MD [address] [place] [address] Discharge Disposition: Discharged to home or Selfcare [...] ORDERABLES Fin al Result Performing Organization Address City/State/[facility] Co de Phone Number SCAN * CMP (COMPREHENSIVE METABOLIC PANEL) (07/16/2024 12:00 AM CDT) Markus Finley MD CHEMISTRY ORDERABLES Fin al Result SCAN * THYROID STIMULATING HORMONE (TSH) (07/16/2024 12:00 AM CDT) Markus Finley MD CHEMISTRY ORDERABLES Fin al Result Performing Organization Address City/State/[facility] Co de Phone Number SCAN * CMP (COMPREHENSIVE METABOLIC PANEL) (07/16/2024 12:00 AM CDT) Markus Finley MD CHEMISTRY ORDERABLES Fin al Result Performing Organization Address City/State/[facility] Co de Phone Number SCAN * COMPLETE BLOOD COUNT (CBC) WITH DIFF (07/16/2024 12:00 AM CDT) Markus Finley MD HEMATOLOGY ORDERABLES Fi nal Result Performing Organization Address City/[facility] Co de Phone Number SCAN * ADRENOCORTICOTROPIC HORMONE, P, MILLER ACTH (07/03/2024 10:29 AM CDT) ADRENOCORTICOTROPIC HORMONE (ACTH) 8.7 pg/mL 07/04/2024 12:18 PM CDT MILLER [employer] Comment: REFERENCE VALUE 7.2-63 (a.m. collection) Test Performed by: [facility] [address] [place] [address] Utility Manager: Ernie Page Ph.D.; CLIA# [id number] Blood Sub-Q Port Venou s Access Device (Medi-Port, Implanted Port) / Unknown 07/03/2024 10:29 AM CDT 07/03/2024 10:29 AM CDT Markus Finley MD LAB SEND OUTS Final Re sult Performing Organization Address City/[facility]/ZIP Co de Phone Number [facility] * (ABNORMAL) THYROXINE (T4) FREE (07/03/2024 10:29 AM CDT) T4 FREE <0.4(L) 0.7 - 1.9 ng/dL 07/03/2024 11:55 AM CDT [facility] Blood Sub-Q Port Venou s Access Device (Medi-Port, Implanted Port) / Unknown 07/03/2024 10:29 AM CDT 07/03/2024 10:29 AM CDT Result [facility] Markus Finley MD CHEMISTRY ORDERABLES Fin al Result Performing Organization Address [facility] Co de Phone Number [facility] [place] [address] * CORTISOL (07/03/2024 10:29 AM CDT) CORTISOL 18.9 mcg/dL 07/03/2024 11:32 AM CDT [facility] Blood Sub-Q Port Venou s Access Device (Medi-Port, Implanted Port) / Unknown 07/03/2024 10:29 AM CDT 07/03/2024 10:29 AM CDT Narrative [facility] - 07/03/2024 11:32 AM CDT AM: ??4 TO 19 mcg/dL PM: ??Approx. Half of AM Value ?? Markus Finley MD CHEMISTRY ORDERABLES Fin al Result Performing Organization Address City/[facility]/ZIP Co de Phone Number [facility] [place] [address] * (ABNORMAL) TRIIODOTHYRININE (T3) FREE (07/03/2024 10:29 AM CDT) FREE T3 <1.5(L) 1.6 - 3.9 pg/mL 07/03/2024 4:27 PM CDT [facility] Blood Sub-Q Port Venou s Access Device (Medi-Port, Implanted Port) / Unknown 07/03/2024 10:29 AM CDT 07/03/2024 10:29 AM CDT Markus Finley MD CHEMISTRY ORDERABLES Fin al Result Performing Organization Address [facility] Co de Phone Number [facility] [address] [place] [address], * (ABNORMAL) THYROID STIMULATING HORMONE (TSH) (07/03/2024 10:29 AM CDT) TSH 42.415(H) 0.300 - 5.000 mIU/L 07/03/2024 11:32 AM CDT [facility] Blood Sub-Q Port Venou s Access Device (Medi-Port, Implanted Port) / Unknown 07/03/2024 10:29 AM CDT 07/03/2024 10:29 AM CDT Markus Finley MD CHEMISTRY ORDERABLES Fin al Result Performing Organization Address City/[facility] Co de Phone Number [facility] [address] [place] [address] * (ABNORMAL) CMP (COMPREHENSIVE METABOLIC PANEL) (07/03/2024 10:29 AM CDT) SODIUM 125(L) 136 - 145 mmol/L 07/03/2024 11:17 AM CDT [facility] POTASSIUM 3.0(L) 3.5 - 5.1 mmol/L 07/03/2024 11:17 AM T [facility] CHLORIDE 99 98 - 107 mmol/L 07/03/2024 11:17 AM T [facility] CO2, VENOUS 12(L) 22 - 30 mmol/L 07/03/2024 11:17 AM CDT [facility] ANION GAP 17.0 <18.0 mmol/L 07/03/2024 11:17 AM CDT [facility] GLUCOSE 150(H) 70 - 99 mg/dL 07/03/2024 11:17 AM T [facility] BUN 23(H) 5 - 18 mg/dL 07/03/2024 11:17 AM [facility] CREATININE, BLOOD 1.55(H) 0.60 - 1.00 mg/dL 07/03/2024 11:17 AM T [facility] BUN/CREATININE RATIO 15 12 - 20 ratio 07/03/2024 11:17 AM [facility] TOTAL PROTEIN 7.7 6.3 - 8.2 g/dL 07/03/2024 11:17 AM T [facility] ALBUMIN 4.2 3.5 - 5.0 g/dL 07/03/2024 11:17 AM [facility] A/G RATIO 1.2 1.0 - 2.2 07/03/2024 11:17 AM CDT [facility] CALCIUM 9.4 8.7 - 10.5 mg/dL 07/03/2024 11:17 AM T [facility] T BILI 0.9 0.2 - 1.2 mg/dL 07/03/2024 11:17 AM CDT [facility] SGOT (AST) 28 5 - 34 U/L 07/03/2024 11:17 AM CDT [facility] SGPT (ALT) 64(H) 0 - 55 U/L 07/03/2024 11:17 AM CDT [facility] ALKALINE PHOSPHATASE 79 40 - 150 U/L 07/03/2024 11:17 AM CDT [facility] IS THE PATIENT REQUIRED TO BE FASTING? No 07/03/2024 11:17 AM CDT [facility] GFR, ESTIMATED 48(L) >=60 07/03/2024 11:17 AM CDT [facility] Comment: Creatinine Clearance is the preferred criteria for selecting drug dose adjustments in renally impaired patients. ??The GFR is provided as additional pertinent clinical information. GFR is reported in mL/min/1.73 sq m. Calculation based on the Chronic Kidney Disease Epidemiology Collaboration (CKD- EPI) equation refit without adjustment for race. GFR, EST. 50(L) >=60 024 11:17 AM CDT [facility] GFR, EST. NONAFRICAN 41(L) >=60 07/03/2024 11:17 AM CDT [facility] Blood Sub-Q Port Venou s Access Device (Medi-Port, Implanted Port) / Unknown 07/03/2024 10:29 AM CDT 07/03/2024 10:29 AM CDT us Markus Finley MD CHEMISTRY ORDERABLES Fin al Result [facility] [place] [address] documented in this encounter Visit Diagnoses Diagnosis Metastatic melanoma (HCC)- Primary Melanoma of skin, site unspecified Functional diarrhea Hypotension due to drugs Other iatrogenic hypotension Diarrhea due to drug Diarrhea Immunotherapy Reserved for inherently not codable concepts WITHOUT codable children Dizziness Dizziness and giddiness documented in this encounter Care Teams Airplane Inspector Relationship Specialty Start Date End Date Pritesh Chu MD [address] [place] [address] PCP - General Family Medicine 04/18/24 Markus Finley MD [address] [place] [address] Consulting Physician Medical Oncology 04/18/24 documented as of this encounter
--- OUTSIDE RECORDS SUMMARY | 2024-10-27 02:49 | XMS_ITS | Encounter Summary ---
Author Organization [facility] Address [address] [place] [address] Phone Care Team Providers Care Process Engineering Technician Name Role Phone Pritesh Chu MD Primary Care Provider [phone] Markus Finley MD Unavailable [phone] Encounter Details Date Type Department Care Team (Late st Contact Info) Description 06/25/[address] [facility] Oncology Services [address] [place] [phone] Markus Finley MD [address] [place] [address] Social History Tobacco Use Types Packs/Day Years Used Date Smoking Tobacco: Former Cigarettes 0.5 8.5 S tarted: 04/18/2016 Smokeless Tobacco: Never Alcohol Use Standard Drinks/Week Comments Yes 0 (1 standard drink = 0.6 oz pur e alcohol) [facility] Utilities Answer Date Recorded In [...] at all 06/27/2024 [facility] [place] of Occupat ional Health - Occupational Stress [...] st Contact Info) Description 11/15/2024 1:00 PM CHIEF UNIT FORESTER Lab [facility] Laboratory Services [address] [place] [address] Markus Finley MD [address] [place] [address] 11/15/2024 2:00 PM CHIEF UNIT FORESTER Appointment [facility] MRI [address] [place] [address] Markus Finley MD [address] [place] [address] Discharge Disposition: Discharged to home or Selfcare documented as of this encounter Visit Diagnoses Diagnosis Diarrhea due to drug- Primary Diarrhea documented in this encounter Care Teams Process Engineering Technician Relationship Specialty Start Date End Date Pritesh Chu MD [address] [place] [address] PCP - General Family Medicine 04/18/24 Markus Finley MD [address] [place] [address] Consulting Physician Medical Oncology 04/18/24 documented as of this encounter
--- OUTSIDE RECORDS SUMMARY | 2024-10-27 02:49 | XMS_ITS | Encounter Summary ---
Author Organization [facility] Address [address] [place] [address] Phone Care Team Providers Care Putty Mixer Name Role Phone Pritesh Chu MD Primary Care Provider [phone] Markus Finley MD Unavailable [phone] Reason for Visit * Episode Based Medications (Routine) - Closed Specialty Diagnoses / Procedures Referred By Contross t Referred To Contact Diagnoses Metastatic melanoma (HCC) Markus Finley MD [address] [place] [address] Phone: tel: fax: [facility] Oncology Services [address] [place] [address] Phone: tel: fax: Referral ID Status Reason Start Date Expiration Date Visits Re quested Visits Authorized [id number] Closed 04/19/2024 1 30 Encounter Details Date Type Department Care Team (Late st Contact Info) Description 06/12/2024 1:00 PM CDT Clinical Support [facility] Oncology Services [address] [place] [address] Markus Finley MD [address] [place] [address] Metastatic melanoma (HCC) (Primary Dx); Abnormal TSH [...] Pt awaiting treatment and provider follow-up in [facility]. * Interdisciplinary - Liliana Finney RN - 06/12/2024 1:00 PM CDT Medication given per MD order and pt tolerated well. Pt recites she will call derm office at [place] for follow-up regarding possible new lesions and [...] Contact Info) Description 11/15/2024 1:00 PM TRAFFIC SIGNAL MECHANIC [facility] [address] [place] [address] Markus Finley MD [address] [place] [address] 11/15/2024 2:00 PM TRAFFIC SIGNAL MECHANIC [facility] 1 [place] [address] Markus Finley MD [address] [place] [address] Discharge Disposition: Discharged to home or Selfcare [...] - 1.9 ng/dL 06/12/2024 4:54 PM CDT [facility] Blood Sub-Q Port Venou s Access Device (Medi-Port, Implanted Port) / Unknown 06/12/2024 2:14 PM CDT 06/12/2024 2:14 PM CDT [facility] PAC CHEMISTRY ORDERABLES Susan l Result [facility] [address] [place] [address] * (ABNORMAL) THYROID SCREEN WITH REFLEX (06/12/2024 2:14 PM CDT) TSH 0.100(L) 0.300 - 5.000 mIU/L 06/12/2024 4:23 PM CDT [facility] Blood Sub-Q Port Venou s Access Device (Medi-Port, Implanted Port) / Unknown 06/12/2024 2:14 PM CDT 06/12/2024 2:14 PM CDT [facility] PAC CHEMISTRY ORDERABLES Susan l Result [facility] [address] [place] [address] * TRIIODOTHYRININE (T3) TOTAL (06/12/2024 2:14 PM CDT) Pathologist [facility] T3 107 40 - 193 ng/dL 06/12/2024 9:46 PM CDT [facility] Blood Sub-Q Port Venou s Access Device (Medi-Port, Implanted Port) / Unknown 06/12/2024 2:14 PM CDT 06/12/2024 2:14 PM CDT [facility] PAC CHEMISTRY ORDERABLES Susan l Result [facility] [address] [place] [address], * THYROXINE (T4) FREE (06/12/2024 2:14 PM CDT) Pathologist [facility] T4 FREE 0.8 0.7 - 1.9 ng/dL 06/12/2024 4:25 PM CDT [facility] Blood Sub-Q Port Venou s Access Device (Medi-Port, Implanted Port) / Unknown 06/12/2024 2:14 PM CDT 06/12/2024 2:14 PM CDT [facility] PAC CHEMISTRY ORDERABLES Susan l Result [facility] #[address] [place] [address] * (ABNORMAL) CMP (COMPREHENSIVE METABOLIC PANEL) (06/12/2024 2:14 PM CDT) Pathologist [facility] SODIUM 140 136 - 145 mmol/L 06/12/2024 4:04 PM CDT [facility] POTASSIUM 3.5 3.5 - 5.1 mmol/L 06/12/2024 4:04 PM CDT [facility] CHLORIDE 109(H) 98 - 107 mmol/L 06/12/2024 4:04 PM CDT [facility] CO2, VENOUS 23 22 - 30 mmol/L 06/12/2024 4:04 PM CDT [facility] ANION GAP 11.5 <18.0 mmol/L 06/12/2024 4:04 PM T [facility] GLUCOSE 136(H) 70 - 99 mg/dL 06/12/2024 4:04 PM CDT [facility] BUN 12 5 - 18 mg/dL 06/12/2024 4:04 PM T [facility] CREATININE, BLOOD 0.73 0.60 - 1.00 mg/dL 06/12/2024 4:04 PM T [facility] BUN/CREATININE RATIO 16 12 - 20 ratio 06/12/2024 4:04 PM T [facility] TOTAL PROTEIN 6.4 6.3 - 8.2 g/dL 06/12/2024 4:04 PM T [facility] ALBUMIN 3.6 3.5 - 5.0 g/dL 06/12/2024 4:04 PM T [facility] A/G RATIO 1.3 1.0 - 2.2 06/12/2024 4:04 PM T [facility] CALCIUM 9.1 8.7 - 10.5 mg/dL 06/12/2024 4:04 PM T [facility] T BILI 0.2 0.2 - 1.2 mg/dL 06/12/2024 4:04 PM CDT [facility] SGOT (AST) 20 5 - 34 U/L 06/12/2024 4:04 PM T [facility] SGPT (ALT) 37 0 - 55 U/L 06/12/2024 4:04 PM T [facility] ALKALINE PHOSPHATASE 59 40 - 150 U/L 06/12/2024 4:04 PM T [facility] IS THE PATIENT REQUIRED TO BE FASTING? No 06/12/2024 4:04 PM T [facility] GFR, ESTIMATED >60 >=60 06/12/2024 4:04 PM CDT [facility] Comment: Creatinine Clearance is the preferred criteria for selecting drug dose adjustments in renally impaired patients. ??The GFR is provided as additional pertinent clinical information. GFR is reported in mL/min/1.73 sq m. Calculation based on the Chronic Kidney Disease Epidemiology Collaboration (CKD- EPI) equation refit without adjustment for race. GFR, EST. >60 >=60 024 4:04 PM CDT [facility] GFR, EST. NONAFRICAN >60 >=60 06/12/2024 4:04 PM CDT [facility] Blood Sub-Q Port Venou s Access Device (Medi-Port, Implanted Port) / Unknown 06/12/2024 2:14 PM CDT 06/12/2024 2:14 PM CDT Markus Finley MD CHEMISTRY ORDERABLES Fin al Result [facility] [address] [place] [address] documented in this encounter Visit Diagnoses Diagnosis [...] mg documented in this encounter Care Teams Putty Mixer Relationship Specialty Start Date End Date Pritesh Chu MD [address] [place] [address] PCP - General Family Medicine 04/18/24 Markus Finley MD [address] [place] [address] Consulting Physician Medical Oncology 04/18/24 documented as of this encounter
--- OUTSIDE RECORDS SUMMARY | 2024-10-27 02:49 | XMS_ITS | Encounter Summary ---
Author Organization [facility] Care Team Providers Care Medical Nurse Name Role Phone Pritesh Chu MD Primary Care Provider [phone] Markus Finley MD Unavailable [phone] Encounter Details Date Type Department Care Team [...] st Contact Info) Description 11/15/2024 1:00 PM BUILDING INSULATION SUPERVISOR Lab [facility] Laboratory Services [address] [place] [phone] Markus Finley MD [address] [place] [address] 11/15/2024 2:00 PM BUILDING INSULATION SUPERVISOR Appointment [facility] MRI [address] [place] [address] Markus Finley MD [address] [place] [address] Discharge Disposition: Discharged to home or Selfcare documented as of this encounter Visit Diagnoses Not on filedocumented in this encounter Care Teams Medical Nurse Relationship Specialty Start Date End Date Pritesh Chu MD [address] [place] [address] PCP - General Family Medicine 04/18/24 Markus Finley MD [address] [place] [address] Consulting Physician Medical Oncology 04/18/24 documented as of this encounter
--- OUTSIDE RECORDS SUMMARY | 2024-10-27 02:49 | XMS_ITS | Encounter Summary ---
Author Organization [employer] Care Team Providers Care Real Estate Agent Name Role Phone Pritesh Chu MD Primary Care Provider [phone] Markus Finley MD Unavailable [phone] Encounter Details Date Type Department Care Team (Latest Contact Info) Description 07/04/2024 Travel Social History Tobacco Use Types Packs/Day Years Used Date Smoking Tobacco: Former Cigarettes 0.5 8.5 S tarted: 04/18/2016 Smokeless Tobacco: Never Alcohol Use Standard Drinks/Week Comments Yes 0 (1 standard drink = 0.6 oz pur e alcohol) [facility] Utilities Answer Date Recorded In the past 12 months has [employer], gas, oil, or water [employer] threatened to shut off services in your [...] often do you attend chur ch or amish services? Never 06/27/2024 Do you belong to [...] hard at all 06/27/2024 [facility] - Occupational Stress [...] st Contact Info) Description 11/15/2024 1:00 PM INTAKE SPECIALIST [facility] [address] [place] [address] Markus Finley MD [address] [place] [address] 11/15/2024 2:00 PM INTAKE SPECIALIST [facility]ointment [facility] [address] [place] [address] Markus Finley MD [address] [place] [address] Discharge Disposition: Discharged to home or Selfcare documented as of this encounter Visit Diagnoses Not on filedocumented in this encounter Care Teams Real Estate Agent Relationship Specialty Start Date End Date Pritesh Chu MD [address] [place] [address] PCP - General Family Medicine 04/18/24 Markus iFnley MD [address] [place] [address] Consulting Physician Medical Oncology 04/18/24 documented as of this encounter
--- OUTSIDE RECORDS SUMMARY | 2024-10-27 02:49 | XMS_ITS | Encounter Summary ---
Author Organization [facility] Address [address] 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 Genetics Risk Assessment Discussed/N/A Allergies as of [...] st Contact Info) Description 11/15/2024 1:00 PM MARINE ELECTRONICS TECHNICIAN [facility] [address] [place] [address] Markus Finley MD [address] [place] [address] 11/15/2024 2:00 PM MARINE ELECTRONICS TECHNICIAN [facility]ointment [facility] [address] [place] [address] Markus Finley MD [address] [place] [address] Discharge Disposition: Discharged to home or Selfcare documented as of this encounter Visit Diagnoses Diagnosis Metastatic melanoma (HCC)- Primary Melanoma of skin, site unspecified documented in this encounter Care Teams Pewter Caster Relationship Specialty Start Date End Date Pritesh Chu MD [address] [address] PCP - General Family Medicine 04/18/24 Markus Finley MD [address] [place] [address] Consulting Physician Medical Oncology 04/18/24 documented as of this encounter
--- OUTSIDE RECORDS SUMMARY | 2024-10-27 02:49 | XMS_ITS | Encounter Summary ---
Author Organization [facility] Address [address] [facility] [place] [address] Phone Care Team Providers Care Facilities Specialist Name Role Phone Pritesh Chu MD Primary Care Provider [phone] Markus Finley MD Unavailable [phone] Reason for Visit * Reason Comments Medication Refill Encounter Details Date Type Department Care Team (Late st Contact Info) Description 06/25/2024 Refill [facility] Oncology Services [address] [place] [phone] Markus Finley MD [address] [place] [address] Medication Refill Social History Tobacco Use Types [...] Contact Info) Description 11/15/2024 1:00 PM TRAVEL PT [facility] [address] [place] [address] Markus Finley MD [address] [place] [address] 11/15/2024 2:00 PM TRAVEL PT [facility]ment [facility] [address] [place] [address] Markus Finley MD [address] [place] [address] Discharge Disposition: Discharged to home or Selfcare documented as of this encounter Visit Diagnoses Not on filedocumented in this encounter Care Teams Facilities Specialist Relationship Specialty Start Date End Date Pritesh Chu MD [address] [place] [address] PCP - General Family Medicine 04/18/24 Markus Finley MD [address] [place] [address] Consulting Physician Medical Oncology 04/18/24 documented as of this encounter
--- OUTSIDE RECORDS SUMMARY | 2024-10-27 02:49 | XMS_ITS | Encounter Summary ---
Author Organization [facility] Care Team Providers Care Veterinary Technologist Name Role Phone Pritesh Chu MD Primary Care Provider [phone] Markus Finley MD Unavailable [phone] Encounter Details Date Type Department Care Team [...] st Contact Info) Description 11/15/2024 1:00 PM COATER CARBON PAPER Lab [facility] Laboratory Services [address] [place] [address] Markus Finley MD [address] [place] [address] 11/15/2024 2:00 PM COATER CARBON PAPER Appointment [facility] MRI [address] [place] [address] Markus Finley MD [address] [place] [address] Discharge Disposition: Discharged to home or Selfcare documented as of this encounter Visit Diagnoses Not on filedocumented in this encounter Care Teams Veterinary Technologist Relationship Specialty Start Date End Date Pritesh Chu MD [address] [address] PCP - General Family Medicine 04/18/24 Markus Finley MD [address] [place] [address] Consulting Physician Medical Oncology 04/18/24 documented as of this encounter
--- OUTSIDE RECORDS SUMMARY | 2024-10-27 02:50 | XMS_ITS | Encounter Summary ---
Author Organization [facility] Address [address] [facility] [address] Phone Care Team Providers Care Volumetric Weigher Name Role Phone Pritesh Chu MD Primary Care Provider [phone] Markus Finley MD Unavailable Encounter Details Date Type Department Care Team (Latest Contact Info) Description 04/19/2024 7:03 AM CDT - 04/19/2024 7:09 AM CDT Hospital Encounter [facility] [address] [place] [address] Markus Finley MD [address] [place] [address] Discharge Disposition: Discharged to home or Selfcare [...] st Contact Info) Description 11/15/2024 1:00 PM DISTRICT BRANCH MANAGER [facility] [address] [place] [address] Markus Finley MD [address] [place] [address] 11/15/2024 2:00 PM DISTRICT BRANCH MANAGER [facility] 1 [facility] [place] [address] Markus Finley MD [address] [place] [address] Discharge Disposition: Discharged to home or Selfcare documented as of this encounter Procedures Procedure Name Priority Date/Time Associated Diagnosis Comments PET REFERENCE IMAGES FOR IMPORT Routine 04/19/2024 7:03 AM CDT documented in this encounter Results * PET REFERENCE IMAGES FOR IMPORT (04/19/2024 7:03 AM CDT) Markus Finley MD [facility] [place] ORDERABLES Final Result documented in this encounter Visit Diagnoses Not on filedocumented in this encounter Care Teams Volumetric Weigher Relationship Specialty Start Date End Date Pritesh Chu MD [address] [place] [address] PCP - General Family Medicine 04/18/24 Markus Finley MD [address] [place] [address] Consulting Physician Medical Oncology 04/18/24 documented as of this encounter
--- OUTSIDE RECORDS SUMMARY | 2024-10-27 02:50 | XMS_ITS | Encounter Summary ---
Author Organization [facility] Care Team Providers Care Cable Armorer Operator Name Role Phone Pritesh Chu MD Primary Care Provider [phone] Markus Finley MD Unavailable [phone] Encounter Details Date Type Department Care Team [...] st Contact Info) Description 11/15/2024 1:00 PM HEATSET WINDER OPERATOR Lab [facility] Laboratory Services [address] [place] [address] Markus Finley MD [address] [place] [address] 11/15/2024 2:00 PM HEATSET WINDER OPERATOR Appointment [facility] MRI [address] [place] [address] Markus Finley MD [address] [place] [address] Discharge Disposition: Discharged to home or Selfcare documented as of this encounter Visit Diagnoses Not on filedocumented in this encounter Care Teams Cable Armorer Operator Relationship Specialty Start Date End Date Pritesh Chu MD [address] [place] [address] PCP - General Family Medicine 04/18/24 Markus Finley MD [address] [place] [address] Consulting Physician Medical Oncology 04/18/24 documented as of this encounter
--- OUTSIDE RECORDS SUMMARY | 2024-10-27 02:50 | XMS_ITS | Encounter Summary ---
Author Organization [facility] Address [address] [facility] [place] [address] Phone Care Team Providers Care Jd Edwards Developer Name Role Phone Pritesh Chu MD Primary Care Provider [phone] Markus Finley MD Unavailable [phone] Encounter Details Date Type Department Care Team (Late st Contact Info) Description 04/18/2024 3:20 PM CDT Clinical Support [facility] Oncology Services [address] [place] [address] Markus Finley MD [address] [place] [address] Iron deficiency anemia due to chronic blood [...] st Contact Info) Description 11/15/2024 1:00 PM PROFESSOR OF FOREST PLANNING Lab [facility] [address] [place] [address] Markus Finley MD [address] [place] [address] 11/15/2024 2:00 PM PROFESSOR OF FOREST PLANNING [facility]ment [facility] [address] [place] [address] Markus Finley MD [address] [place] [address] Discharge Disposition: Discharged to home or Selfcare [...] Units documented in this encounter Care Teams Jd Edwards Developer Relationship Specialty Start Date End Date Pritesh Chu MD [address] [address] PCP - General Family Medicine 04/18/24 Markus Finley MD [address] [place] [address] Consulting Physician Medical Oncology 04/18/24 documented as of this encounter
--- OUTSIDE RECORDS SUMMARY | 2024-10-27 02:51 | XMS_ITS ---
Author Organization [facility] Address [address] [place] [address] Phone Care Team Providers Care Motorcycle Assembler Name Role Phone Pritesh Chu MD Primary Care Provider Markus Finley MD Unavailable [phone] Zander Cha MD Unavailable Ambulatory Transitions of Care Status:Closed (Closed) Start date:07/30/2024 Enrollment date:07/31/2024 End date:08/09/2024 Close reason:Patient graduated Related social drivers of health:Intimate Partner Violence, Social Connections, Alcohol Use, Tobacco Use, Financial Resource Strain,Depression, Stress, Physical Activity, Food Insecurity, Transportation Needs, Housing Stability, Utilities Continued Care and Services Coordination
--- OUTSIDE RECORDS SUMMARY | 2024-10-27 02:51 | XMS_ITS ---
Author Organization [facility] Address [address] [place] [address] Phone Care Team Providers Care Writer Technical Publications Name Role Phone Pritesh Chu MD Primary Care Provider [phone] Markus Finley MD Unavailable [phone] Zander Cha MD Unavailable [facility] Status:Enrolled (Active) Start date:09/24/2024 Enrollment date:09/24/2024 Related social drivers of health:Intimate Partner Violence, Social Connections, Alcohol Use, Tobacco Use, Financial Resource Strain,Depression, Stress, Physical Activity, Food Insecurity, Transportation Needs, Housing Stability, Utilities Continued Care and Services Coordination
--- OUTSIDE RECORDS SUMMARY | 2024-10-27 03:08 | XMS_ITS | Encounter Summary ---
Author Organization [facility] [employer] [facility] Address [address] [place] [address] Care Team Providers Care Padded Box Sewer Name Role Phone Pritesh Chu MD Primary Care Provider Encounter Details Date Type Department Care Team (Late st Contact Info) Description 08/27/2024 Orders Only [facility] Oncology and Hematology - [place] [address] [place] [address] [address] [place] [address] Christopher Meeks MD [address] [facility] [address] [place] [address] Malignant melanoma of lower extremity, [...] laterality documented in this encounter Care Teams Padded Box Sewer Relationship Specialty Start Date End Date Pritesh Chu MD [address] [place] [address] PCP - General Family Practice 09/13/23 documented as of this encounter
--- OUTSIDE RECORDS SUMMARY | 2024-10-27 03:08 | XMS_ITS | Encounter Summary ---
Author Organization [facility] [employer] [facility] Address [address] [place] [address] Care Team Providers Care Supervisor Paste Mixing Name Role Phone Pritesh Chu MD Primary Care Provider [phone] Encounter Details Date Type Department Care Team (Late st Contact Info) Description 09/24/2024 Orders Only [facility] Oncology and Hematology - [place] [address] [place] [address] [address] [place] [address] Christopher Meeks MD [address] [facility] [address] [place] [address] Malignant melanoma of lower extremity, [...] documented in this encounter Care Teams Supervisor Paste Mixing Relationship Specialty Start Date End Date Pritesh Chu MD [address] [place] [address] PCP - General Family Practice 09/13/23 documented as of this encounter
--- OUTSIDE RECORDS SUMMARY | 2024-10-27 03:08 | XMS_ITS | Encounter Summary ---
Author Organization [facility] [employer] [facility] Address [address] [place] [address] Care Team Providers Care Service Order Taker Name Role Phone Pritesh Chu MD Primary Care Provider [phone] Encounter Details Date Type Department Care Team (Late st Contact Info) Description 10/08/2024 Orders Only [facility] Oncology and Hematology - [place] [address] [place] [address] [address] [place] [address] Christopher Meeks MD [address] [facility] [address] [place] [address] Malignant melanoma of lower extremity, [...] laterality documented in this encounter Care Teams Service Order Taker Relationship Specialty Start Date End Date Pritesh Chu MD [address] [place] [address] PCP - General Family Practice 09/13/23 documented as of this encounter
--- OUTSIDE RECORDS SUMMARY | 2024-10-27 03:08 | XMS_ITS | Encounter Summary ---
Author Organization [facility] [employer] Address [address] [place] [address] Care Team Providers Care Preventive Medicine Officer Name Role Phone Pritesh Chu MD Primary Care Provider Encounter Details Date Type Department Care Team (Late st Contact Info) Description 09/10/2024 Orders Only [facility] Oncology and Hematology - [place] [address] [place] [address] Dr [address] [place] [address] Christopher Meeks MD [address] [facility] [address] [place] [address] Malignant melanoma of lower extremity, [...] laterality documented in this encounter Care Teams Preventive Medicine Officer Relationship Specialty Start Date End Date Pritesh Chu MD [address] [place] [address] PCP - General Family Practice 09/13/23 documented as of this encounter
--- OUTSIDE RECORDS SUMMARY | 2024-10-27 03:09 | XMS_ITS | Encounter Summary ---
Author Organization [facility] [employer] [facility] Address [address] [place] [address] Care Team Providers Care Tool Profiling Machine Set Up Operator Name Role Phone Pritesh Chu MD Primary Care Provider [phone] Encounter Details Date Type Department Care Team (Late st Contact Info) Description 07/16/2024 Orders Only [facility] Oncology and Hematology - [place] [address] [place] [address] Christopher Meeks MD [address] [facility] [address] [place] [address] Malignant melanoma of lower extremity, [...] laterality documented in this encounter Care Teams Tool Profiling Machine Set Up Operator Relationship Specialty Start Date End Date Pritesh Chu MD [address] [place] [address] PCP - General Family Practice 09/13/23 documented as of this encounter
--- OUTSIDE RECORDS SUMMARY | 2024-10-27 03:09 | XMS_ITS | Encounter Summary ---
Author Organization [facility] Address [address] [place] [address] Care Team Providers Care District Adviser Name Role Phone Pritesh Chu MD Primary Care Provider [phone] Encounter Details Date Type Department Care Team [...] on filedocumented in this encounter Care Teams District Adviser Relationship Specialty Start Date End Date Pritesh Chu MD [address] [place] [address] PCP - General Family Practice 09/13/23 documented as of this encounter
--- OUTSIDE RECORDS SUMMARY | 2024-10-27 03:09 | XMS_ITS | Encounter Summary ---
Author Organization [facility] [employer] [facility] Address [address] [place] [address] Care Team Providers Care Emergency Vehicle Driver Name Role Phone Pritesh Chu MD Primary Care Provider [phone] Encounter Details Date Type Department Care Team (Late st Contact Info) Description 07/30/2024 Orders Only [facility] Oncology and Hematology - [place] [address] [place] [address] [address] [place] [address] Christopher Meeks MD [address] [facility] [address] [place] [address] Malignant melanoma of lower extremity, [...] documented in this encounter Care Teams Emergency Vehicle Driver Relationship Specialty Start Date End Date Pritesh Chu MD [address] [place] [address] PCP - General Family Practice 09/13/23 documented as of this encounter
--- OUTSIDE RECORDS SUMMARY | 2024-10-27 03:09 | XMS_ITS | Encounter Summary ---
Author Organization [facility] Address [address] [place] [address] Care Team Providers Care Metal Bonding Helper Name Role Phone Pritesh Chu MD Primary Care Provider [phone] Encounter Details Date Type Department Care Team [...] on filedocumented in this encounter Care Teams Metal Bonding Helper Relationship Specialty Start Date End Date Pritesh Chu MD [address] [place] [address] PCP - General Family Practice 09/13/23 documented as of this encounter
--- OUTSIDE RECORDS SUMMARY | 2024-10-27 03:09 | XMS_ITS | Encounter Summary ---
Author Organization [facility] Address [address] [place] [address] Care Team Providers Care Certified Medical Transcriptionist Name Role Phone Pritesh Chu MD Primary Care Provider [phone] Encounter Details Date Type Department Care Team [...] filedocumented in this encounter Care Teams Certified Medical Transcriptionist Relationship Specialty Start Date End Date Pritesh Chu MD [address] [place] [address] PCP - General Family Practice 09/13/23 documented as of this encounter
--- OUTSIDE RECORDS SUMMARY | 2024-10-27 03:09 | XMS_ITS | Encounter Summary ---
Author Organization [facility] Address [address] [place] [address] Care Team Providers Care Solar Energy Specialist Name Role Phone Pritesh Chu MD Primary Care Provider [phone] Encounter Details Date Type Department Care Team [...] on filedocumented in this encounter Care Teams Solar Energy Specialist Relationship Specialty Start Date End Date Pritesh Chu MD [address] [place] [address] PCP - General Family Practice 09/13/23 documented as of this encounter
--- OUTSIDE RECORDS SUMMARY | 2024-10-27 03:09 | XMS_ITS | Encounter Summary ---
Author Organization [facility] Address [address] [place] [address] Care Team Providers Care Powertrain Engineer Name Role Phone Pritesh Chu MD Primary Care Provider [phone] Encounter Details Date Type Department Care Team [...] on filedocumented in this encounter Care Teams Powertrain Engineer Relationship Specialty Start Date End Date Pritesh Chu MD [address] [place] [address] PCP - General Family Practice 09/13/23 documented as of this encounter
--- OUTSIDE RECORDS SUMMARY | 2024-10-27 03:09 | XMS_ITS | Encounter Summary ---
Author Organization [facility] Address [address] [place] [address] Care Team Providers Care Manager Leasing Name Role Phone Pritseh Chu MD Primary Care Provider [phone] Encounter Details Date Type Department Care Team [...] on filedocumented in this encounter Care Teams Manager Leasing Relationship Specialty Start Date End Date Pritesh Chu MD [address] [place] [address] PCP - General Family Practice 09/13/23 documented as of this encounter
--- OUTSIDE RECORDS SUMMARY | 2024-10-27 03:10 | XMS_ITS | Encounter Summary ---
Author Organization [facility] [employer] [facility] Address [address] [place] [address] Care Team Providers Care Shop Teacher Name Role Phone Pritesh Chu MD Primary Care Provider [phone] Encounter Details Date Type Department Care Team (Late st Contact Info) Description 06/04/2024 Orders Only [facility] Oncology and Hematology - [place] [address] [place] [address] [address] [place] [address] Christopher Meeks MD [address] [facility] [address] [place] [address] Malignant melanoma of lower extremity, [...] laterality documented in this encounter Care Teams Shop Teacher Relationship Specialty Start Date End Date Pritesh Chu MD [address] [place] [address] PCP - General Family Practice 09/13/23 documented as of this encounter
--- OUTSIDE RECORDS SUMMARY | 2024-10-27 03:10 | XMS_ITS | Encounter Summary ---
Author Organization [facility] [employer] [facility] Address [address] [place] [address] Care Team Providers Care Creative Guru Name Role Phone Pritesh Chu MD Primary Care Provider [phone] Encounter Details Date Type Department Care Team (Late st Contact Info) Description 05/07/2024 Orders Only [facility] Oncology and Hematology - [place] [address] [facility] [address] [place] [address] Christopher Meeks MD [address] [facility] [address] [place] [address] Malignant melanoma of lower extremity, [...] laterality documented in this encounter Care Teams Creative Guru Relationship Specialty Start Date End Date Pritesh Chu MD [address] [place] [address] PCP - General Family Practice 09/13/23 documented as of this encounter
--- OUTSIDE RECORDS SUMMARY | 2024-10-27 03:10 | XMS_ITS | Encounter Summary ---
Author Organization [facility] [employer] [facility] Address [address] [place] [address] Care Team Providers Care Risk Management Director Name Role Phone Pritesh Chu MD Primary Care Provider Encounter Details Date Type Department Care Team (Late st Contact Info) Description 04/23/2024 Orders Only [facility] Oncology and Hematology - [place] [address] [place] [address] [address] [place] [address] Christopher Meeks MD [address] [facility] [address] [place] [address] Malignant melanoma of lower extremity, [...] laterality documented in this encounter Care Teams Risk Management Director Relationship Specialty Start Date End Date Pritesh Chu MD [address] [place] [address] PCP - General Family Practice 09/13/23 documented as of this encounter
--- OUTSIDE RECORDS SUMMARY | 2024-10-27 03:10 | XMS_ITS | Encounter Summary ---
Author Organization [facility] [employer] [facility] Address [address] [place] [address] Care Team Providers Care It Application Development Manager Name Role Phone Pritesh Chu MD Primary Care Provider [phone] Encounter Details Date Type Department Care Team (Late st Contact Info) Description 06/18/2024 Orders Only [facility] Oncology and Hematology - [place] [address] [place] [address] [address] [place] [address] Christopher Meeks MD [address] [facility] [address] [place] [address] Malignant melanoma of lower extremity, [...] laterality documented in this encounter Care Teams It Application Development Manager Relationship Specialty Start Date End Date Pritesh Chu MD [address] [place] [address] PCP - General Family Practice 09/13/23 documented as of this encounter
--- OUTSIDE RECORDS SUMMARY | 2024-10-27 03:10 | XMS_ITS | Encounter Summary ---
Author Organization [facility] [employer] [facility] Address [address] [place] [address] Care Team Providers Care Petroleum Terminal Plant Operator Name Role Phone Pritesh Chu MD Primary Care Provider [phone] Encounter Details Date Type Department Care Team (Late st Contact Info) Description 05/21/2024 Orders Only [facility] Oncology and Hematology - [place] [address] [place] [address] [address] [place] [address] Christopher Meeks MD [address] [facility] [address] [place] [address] Malignant melanoma of lower extremity, [...] laterality documented in this encounter Care Teams Petroleum Terminal Plant Operator Relationship Specialty Start Date End Date Pritesh Chu MD [address] [place] [address] PCP - General Family Practice 09/13/23 documented as of this encounter
--- OUTSIDE RECORDS SUMMARY | 2024-10-27 03:10 | XMS_ITS | Encounter Summary ---
Author Organization [facility] Address [address] [place] [address] Care Team Providers Care Inside Trucker Name Role Phone Pritesh Chu MD [...] on filedocumented in this encounter Care Teams Inside Trucker Relationship Specialty Start Date End Date Pritesh Chu MD [address] [place] [address] PCP - General Family Practice 09/13/23 documented as of this encounter
--- OUTSIDE RECORDS SUMMARY | 2024-10-27 03:11 | XMS_ITS | Encounter Summary ---
Author Organization [facility] Address [address] [place] [address] Care Team Providers Care Embryology Professor Name Role Phone Pritesh Chu MD Primary Care Provider [phone] Encounter Details Date Type Department Care Team [...] on filedocumented in this encounter Care Teams Embryology Professor Relationship Specialty Start Date End Date Pritesh Chu MD [address] [place] [address] PCP - General Family Practice 09/13/23 documented as of this encounter
--- OUTSIDE RECORDS SUMMARY | 2024-10-27 03:11 | XMS_ITS | Encounter Summary ---
Author Organization [facility] [employer] [facility] Address [address] [place] [address] Care Team Providers Care Informatics Nurse Specialist Name Role Phone Pritesh Chu MD Primary Care Provider [phone] Encounter Details Date Type Department Care Team (Late st Contact Info) Description 03/06/2024 Orders Only [facility] Oncology and Hematology - [place] [address] [facility] [address] [place] [address] Christopher Meeks MD [address] [facility] [address] [place] [address] Social History Tobacco Use Types [...] on filedocumented in this encounter Care Teams Informatics Nurse Specialist Relationship Specialty Start Date End Date Pritesh Chu MD [address] [place] [address] PCP - General Family Practice 09/13/23 documented as of this encounter
--- OUTSIDE RECORDS SUMMARY | 2024-10-27 03:11 | XMS_ITS | Encounter Summary ---
Author Organization [facility] [employer] [facility] Address [address] [place] [address] Care Team Providers Care Out Patient Therapist Name Role Phone Pritesh Chu MD Primary Care Provider [phone] Encounter Details Date Type Department Care Team (Late st Contact Info) Description 02/13/2024 Orders Only [facility] Oncology and Hematology - [place] [address] [place] [address] [address] [place] [address] Christopher Meeks MD [address] [facility] [address] [place] [address] Malignant melanoma of lower extremity, [...] laterality documented in this encounter Care Teams Out Patient Therapist Relationship Specialty Start Date End Date Pritesh Chu MD [address] [place] [address] PCP - General Family Practice 09/13/23 documented as of this encounter
--- OUTSIDE RECORDS SUMMARY | 2024-10-27 03:11 | XMS_ITS | Encounter Summary ---
Author Organization [facility] [employer] [facility] Address [address] [place] [address] Care Team Providers Care Dance Historian Name Role Phone Pritesh Chu MD Primary Care Provider [phone] Encounter Details Date Type Department Care Team (Late st Contact Info) Description 01/16/2024 Orders Only [facility] Oncology and Hematology - [place] [address] [place] [address] [address] [place] [address] Christopher Meeks MD [address] [facility] [address] [place] [address] Malignant melanoma of lower extremity, [...] laterality documented in this encounter Care Teams Dance Historian Relationship Specialty Start Date End Date Pritesh Chu MD [address] [place] [address] PCP - General Family Practice 09/13/23 documented as of this encounter
--- OUTSIDE RECORDS SUMMARY | 2024-10-27 03:11 | XMS_ITS | Encounter Summary ---
Author Organization [facility] [employer] [facility] Address [address] [place] [address] Care Team Providers Care Cloth Stretcher Name Role Phone Pritesh Chu MD Primary Care Provider [phone] Encounter Details Date Type Department Care Team (Late st Contact Info) Description 03/26/2024 Orders Only [facility] Oncology and Hematology - [place] [address] [facility] [address] [place] [address] Christopher Meeks MD [address] [facility] [address] [place] [address] Malignant melanoma of lower extremity, [...] laterality documented in this encounter Care Teams Cloth Stretcher Relationship Specialty Start Date End Date Pritesh Chu MD [address] [place] [address] PCP - General Family Practice 09/13/23 documented as of this encounter
--- OUTSIDE RECORDS SUMMARY | 2024-10-27 03:11 | XMS_ITS | Encounter Summary ---
Author Organization [facility] [employer] [facility] Address [address] [place] [address] Care Team Providers Care Plaster Pattern Caster Name Role Phone Pritesh Chu MD Primary Care Provider [phone] Encounter Details Date Type Department Care Team (Late st Contact Info) Description 04/04/2024 Orders Only [facility] Oncology and Hematology - [place] [address] [facility] [address] [place] [address] Christopher Meeks MD [address] [facility] [address] [place] [address] Social History Tobacco Use Types [...] filedocumented in this encounter Care Teams Plaster Pattern Caster Relationship Specialty Start Date End Date Pritesh Chu MD [address] [place] [address] PCP - General Family Practice 09/13/23 documented as of this encounter
--- OUTSIDE RECORDS SUMMARY | 2024-10-27 03:11 | XMS_ITS | Encounter Summary ---
Author Organization [facility] [employer] [facility] Address [address] [place] [address] Care Team Providers Care Waiter/Waitress Second Class Name Role Phone Pritesh Chu MD Primary Care Provider [phone] Encounter Details Date Type Department Care Team (Late st Contact Info) Description 03/12/2024 Orders Only [facility] Oncology and Hematology - [place] [address] [facility] [address] [place] [address] Christopher Meeks MD [address] [facility] [address] [place] [address] Malignant melanoma of lower extremity, [...] laterality documented in this encounter Care Teams Waiter/Waitress Second Class Relationship Specialty Start Date End Date Pritesh Chu MD [address] [place] [address] PCP - General Family Practice 09/13/23 documented as of this encounter
--- OUTSIDE RECORDS SUMMARY | 2024-10-27 03:11 | XMS_ITS | Encounter Summary ---
Author Organization [facility] [employer] [facility] Address [address] [place] [address] Care Team Providers Care Television Production Clerk Name Role Phone Pritesh Chu MD Primary Care Provider [phone] Encounter Details Date Type Department Care Team (Late st Contact Info) Description 02/27/2024 Orders Only [facility] Oncology and Hematology - [place] [address] [place] [address] [address] [place] [address] Christopher Meeks MD [address] [facility] [address] [place] [address] Malignant melanoma of lower extremity, [...] laterality documented in this encounter Care Teams Television Production Clerk Relationship Specialty Start Date End Date Pritesh Chu MD [address] [place] [address] PCP - General Family Practice 09/13/23 documented as of this encounter
--- OUTSIDE RECORDS SUMMARY | 2024-10-27 03:11 | XMS_ITS | Encounter Summary ---
Author Organization [facility] [employer] [facility] Address [address] [place] [address] Care Team Providers Care Separator Inserter Name Role Phone Pritesh Chu MD Primary Care Provider [phone] Encounter Details Date Type Department Care Team (Late st Contact Info) Description 04/09/2024 Orders Only [facility] Oncology and Hematology - [place] [address] [facility] [address] [place] [address] Christopher Meeks MD [address] [facility] [address] [place] [address] Malignant melanoma of lower extremity, [...] laterality documented in this encounter Care Teams Separator Inserter Relationship Specialty Start Date End Date Pritesh Chu MD [address] [place] [address] PCP - General Family Practice 09/13/23 documented as of this encounter
--- OUTSIDE RECORDS SUMMARY | 2024-10-27 03:11 | XMS_ITS | Encounter Summary ---
Author Organization [facility] [employer] [facility] Address [address] [place] [address] Care Team Providers Care Hat Forming Machine Feeder Name Role Phone Pritesh Chu MD Primary Care Provider [phone] Encounter Details Date Type Department Care Team (Late st Contact Info) Description 02/29/[address] [facility] Oncology and Hematology - [place] [address] [facility] [address] [place] [address] Christopher Meeks MD [address] [facility] [address] [place] [address] Malignant melanoma of lower extremity, [...] Primary documented in this encounter Care Teams Hat Forming Machine Feeder Relationship Specialty Start Date End Date Pritesh Chu MD [address] [place] [address] PCP - General Family Practice 09/13/23 documented as of this encounter
--- OUTSIDE RECORDS SUMMARY | 2024-10-27 03:11 | XMS_ITS | Encounter Summary ---
Author Organization [facility] Address [address] [place] [address] Care Team Providers Care Road Commissioner Name Role Phone Pritesh Chu MD Primary Care Provider [phone] Encounter Details Date Type Department Care Team [...] on filedocumented in this encounter Care Teams Road Commissioner Relationship Specialty Start Date End Date Pritesh Chu MD [address] [place] [address] PCP - General Family Practice 09/13/23 documented as of this encounter
--- OUTSIDE RECORDS SUMMARY | 2024-10-27 03:11 | XMS_ITS | Encounter Summary ---
Author Organization [facility] Address [address] [place] [address] Care Team Providers Care Manager Instrumentation Name Role Phone Pritesh Chu MD Primary Care Provider [phone] Reason for Referral * Eval and Treat (Routine) - Closed Specialty Diagnoses / Procedures Referred By Delbert villareal Referred To Contact Surgery / Surgical Oncology Diagnoses Malignant melanoma of lower extremity, unspecified laterality Procedures IN OFFICE/OUTPATIENT ESTABLISHED MOD MDM 30 MIN IN OFFICE/OUTPATIENT NEW MODERATE MDM 45 MINUTES Christopher Meeks MD [address] [facility] [place] [address] [facility] [place] [place] [address] [place] [address] [place] [address] Referral ID Status Reason Start Date Expiration Date V isits Requested Visits Authorized [id number] Closed CRS to Schedule 03/06/2024 03/06/2025 1 1 * PET Scan (Routine) - Closed Specialty Diagnoses / Procedures Referred By Delbert villareal Referred To Contact Diagnoses Malignant melanoma of lower extremity, unspecified laterality Procedures PET TUMOR IMG W CT SKB MDTH CHG PET IMAGING CT ATTENUATION SKULL BASE MID-THIGH IN F18 FDG Christopher Meeks MD [address] [place] [address] [place] [address] Referral ID Status Reason Start Date Expiration Date V isits Requested Visits Authorized [id number] Closed STL CTS 03/19/2024 03/19/2025 1 1 Reason for Visit * Reason Comments Follow Up Cancer Encounter Details Date Type Department Care Team (Late st Contact Info) Description 03/06/2024 9:45 AM CDT Office Visit [facility] Oncology and Hematology - [place] [address] [facility] [address] [place] [address] Christopher Meeks MD [address] [facility] [address] [place] [address] Malignant melanoma of lower extremity, [...] Body Mass Index 45.2 09/13/2023 8:48 AM MARINE FUEL DOCK ATTENDANT documented in this encounter Progress Notes * [...] Primary documented in this encounter Care Teams Manager Instrumentation Relationship Specialty Start Date End Date Pritesh Chu MD [address] [place] [address] PCP - General Family Practice 09/13/23 documented as of this encounter
--- OUTSIDE RECORDS SUMMARY | 2024-10-27 03:11 | XMS_ITS | Encounter Summary ---
Author Organization [facility] [employer] [facility] Address [address] [place] [address] Care Team Providers Care Tactical/Mobile Watch Officer Name Role Phone Pritesh Chu MD Primary Care Provider [phone] Encounter Details Date Type Department Care Team (Late st Contact Info) Description 04/05/2024 Orders Only [facility] Oncology and Hematology - [place] [address] [facility] [address] [place] [address] Christopher Meeks MD [address] [facility] [address] [place] [address] Social History Tobacco Use Types [...] on filedocumented in this encounter Care Teams Tactical/Mobile Watch Officer Relationship Specialty Start Date End Date Pritesh Chu MD [address] [place] [address] PCP - General Family Practice 09/13/23 documented as of this encounter
--- OUTSIDE RECORDS SUMMARY | 2024-10-27 03:11 | XMS_ITS | Encounter Summary ---
Author Organization [facility] [employer] [facility] Address [address] [place] [address] Care Team Providers Care Manager Environmental Health Name Role Phone Pritesh Chu MD Primary Care Provider [phone] Encounter Details Date Type Department Care Team (Late st Contact Info) Description 01/30/2024 Orders Only [facility] Oncology and Hematology - [place] [address] [place] [address] [address] [place] [address] Christopher Meeks MD [address] [facility] [address] [place] [address] Malignant melanoma of lower extremity, [...] documented in this encounter Care Teams Manager Environmental Health Relationship Specialty Start Date End Date Pritesh Chu MD [address] [place] [address] PCP - General Family Practice 09/13/23 documented as of this encounter
--- OUTSIDE RECORDS SUMMARY | 2024-10-27 03:11 | XMS_ITS | Encounter Summary ---
Author Organization [facility] Address [address] [place] [address] Care Team Providers Care Receivables Specialist Name Role Phone Pritesh Chu MD Primary Care Provider [phone] Reason for Visit * Reason Onset Date Comments Needs Appointment 03/07/2024 Encounter Details Date Type Department Care Team (Late st Contact Info) Description 03/07/2024 Telephone [facility] [address] [facility] [address] [place] [address] [place] [address] [facility] [address] [place] [address] Needs Appointment Social History Tobacco [...] on filedocumented in this encounter Care Teams Receivables Specialist Relationship Specialty Start Date End Date Pritesh Chu MD [address] [place] [address] PCP - General Family Practice 09/13/23 documented as of this encounter
--- OUTSIDE RECORDS SUMMARY | 2024-10-27 03:12 | XMS_ITS | Encounter Summary ---
Author Organization [facility] [employer] [facility] Address [address] [place] [address] Care Team Providers Care Director Home Health Name Role Phone Pritesh Chu MD Primary Care Provider [phone] Encounter Details Date Type Department Care Team (Late st Contact Info) Description 12/05/2023 Orders Only [facility] Oncology and Hematology - [place] [address] [place] [address] [address] [place] [address] Christopher Meeks MD [address] [facility] [address] [place] [address] Malignant melanoma of lower extremity, [...] documented in this encounter Care Teams Director Home Health Relationship Specialty Start Date End Date Pritesh Chu MD [address] [place] [address] PCP - General Family Practice 09/13/23 documented as of this encounter
--- OUTSIDE RECORDS SUMMARY | 2024-10-27 03:12 | XMS_ITS | Encounter Summary ---
Author Organization [facility] [employer] [facility] Address [address] [place] [address] Care Team Providers Care Diorama Model Maker Name Role Phone Pritesh Chu MD Primary Care Provider [phone] Encounter Details Date Type Department Care Team (Late st Contact Info) Description 12/21/2023 Abstract [facility] Oncology and Hematology - [place] [address] [place] [address] [address] [place] [address] Christopher Meeks MD [address] [facility] [address] [place] [address] Social History Tobacco Use Types [...] on filedocumented in this encounter Care Teams Diorama Model Maker Relationship Specialty Start Date End Date Pritesh Chu MD [address] [place] [address] PCP - General Family Practice 09/13/23 documented as of this encounter
--- OUTSIDE RECORDS SUMMARY | 2024-10-27 03:12 | XMS_ITS | Encounter Summary ---
Author Organization [facility] Address [address] [place] [address] Care Team Providers Care Meat And Poultry Inspector Name Role Phone Pritesh Chu MD Primary Care Provider [phone] Encounter Details Date Type Department Care Team [...] on filedocumented in this encounter Care Teams Meat And Poultry Inspector Relationship Specialty Start Date End Date Pritesh Chu MD [address] [place] [address] PCP - General Family Practice 09/13/23 documented as of this encounter
--- OUTSIDE RECORDS SUMMARY | 2024-10-27 03:12 | XMS_ITS | Encounter Summary ---
Author Organization [facility] [employer] [facility] Address [address] [place] [address] Care Team Providers Care Plastic Card Grader Cardroom Name Role Phone Pritesh Chu MD Primary Care Provider [phone] Encounter Details Date Type Department Care Team (Late st Contact Info) Description 11/21/2023 Orders Only [facility] Oncology and Hematology - [place] [address] [place] [address] [address] [place] [address] Christopher Meeks MD [address] [facility] [address] [place] [address] Malignant melanoma of lower extremity, [...] laterality documented in this encounter Care Teams Plastic Card Grader Cardroom Relationship Specialty Start Date End Date Pritesh Chu MD [address] [place] [address] PCP - General Family Practice 09/13/23 documented as of this encounter
--- OUTSIDE RECORDS SUMMARY | 2024-10-27 03:12 | XMS_ITS | Encounter Summary ---
Author Organization [facility] Address [address] [place] [address] Care Team Providers Care Slab Inspector Name Role Phone Pritesh Chu MD Primary Care Provider [phone] Encounter Details Date Type Department Care Team [...] on filedocumented in this encounter Care Teams Slab Inspector Relationship Specialty Start Date End Date Pritesh Chu MD [address] [place] [address] PCP - General Family Practice 09/13/23 documented as of this encounter
--- OUTSIDE RECORDS SUMMARY | 2024-10-27 03:12 | XMS_ITS | Encounter Summary ---
Author Organization [facility] Address [address] [place] [address] Care Team Providers Care Night Shift Manager Name Role Phone Pritesh Chu MD Primary Care Provider [phone] Encounter Details Date Type Department Care Team [...] on filedocumented in this encounter Care Teams Night Shift Manager Relationship Specialty Start Date End Date Pritesh Chu MD [address] [place] [address] PCP - General Family Practice 09/13/23 documented as of this encounter
--- OUTSIDE RECORDS SUMMARY | 2024-10-27 03:12 | XMS_ITS | Encounter Summary ---
Author Organization [facility] [employer] [facility] Address [address] [place] [address] Care Team Providers Care Duco Polisher Name Role Phone Pritesh Chu MD Primary Care Provider [phone] Encounter Details Date Type Department Care Team (Late st Contact Info) Description 12/19/2023 Orders Only [facility] Oncology and Hematology - [place] [address] [place] [address] [address] [place] [address] Christopher Meeks MD [address] [facility] [address] [place] [address] Malignant melanoma of lower extremity, [...] laterality documented in this encounter Care Teams Duco Polisher Relationship Specialty Start Date End Date Pritesh Chu MD [address] [place] [address] PCP - General Family Practice 09/13/23 documented as of this encounter
--- OUTSIDE RECORDS SUMMARY | 2024-10-27 03:12 | XMS_ITS | Encounter Summary ---
Author Organization [facility] Address [address] [place] [address] Care Team Providers Care Walnut Dehydrator Operator Name Role Phone Pritesh Chu MD Primary Care Provider [phone] Encounter Details Date Type Department Care Team [...] on filedocumented in this encounter Care Teams Walnut Dehydrator Operator Relationship Specialty Start Date End Date Pritesh Chu MD [address] [place] [address] PCP - General Family Practice 09/13/23 documented as of this encounter
--- OUTSIDE RECORDS SUMMARY | 2024-10-27 03:13 | XMS_ITS | Encounter Summary ---
Author Organization [facility] [employer] [facility] Address [address] [place] [address] Care Team Providers Care Unhairing Machine Operator Name Role Phone Pritesh Chu MD Primary Care Provider [phone] Reason for Visit * Reason Comments Chemotherapy Encounter Details Date Type Department Care Team (Late st Contact Info) Description 10/04/2023 9:15 AM SCUTCHER TENDER Office Visit [facility] Oncology and Hematology - [place] [address] [facility] [address] [place] [address] Christopher Meeks MD [address] [facility] [address] [place] [address] Malignant melanoma of lower extremity, [...] Comments Blood Pressure 139/98 10/04/2023 9:02 AM SCUTCHER TENDER Pulse 81 10/04/2023 9:01 AM SCUTCHER TENDER Temperature 36.2 ??C (97.2 ??F) 10/04/2023 9:01 AM CS T Respiratory Rate 16 10/04/2023 9:01 AM SCUTCHER TENDER Oxygen Saturation 98% 10/04/2023 9:01 AM SCUTCHER TENDER Inhaled Oxygen Concentration - - Weight 131.6 kg (290 lb 3.2 oz) 10/04/2023 9:01 AM SCUTCHER TENDER Height - - Body Mass Index 45.45 09/13/2023 8:48 AM SCUTCHER TENDER documented in this encounter Progress Notes * [...] a tobacco/nicotine user. 10/04/2023 Christopher Meeks MD CHER TENDER documented in this encounter Plan of Treatment Not on file documented as of this encounter Visit Diagnoses Diagnosis Malignant melanoma of lower extremity, unspecified laterality- Primary documented in this encounter Care Teams Unhairing Machine Operator Relationship Specialty Start Date End Date Pritesh Chu MD [address] [place] [address] PCP - General Family Practice 09/13/23 documented as of this encounter
--- OUTSIDE RECORDS SUMMARY | 2024-10-27 03:13 | XMS_ITS | Encounter Summary ---
Author Organization [facility] Address [address] [place] [address] Care Team Providers Care Finishing Area Operator Name Role Phone Pritesh Chu MD Primary Care Provider [phone] Encounter Details Date Type Department Care Team [...] on filedocumented in this encounter Care Teams Finishing Area Operator Relationship Specialty Start Date End Date Pritesh Chu MD [address] [place] [address] PCP - General Family Practice 09/13/23 documented as of this encounter
--- OUTSIDE RECORDS SUMMARY | 2024-10-27 03:13 | XMS_ITS | Encounter Summary ---
Author Organization [facility] [employer] [facility] Address [address] [place] [address] Care Team Providers Care Economics Instructor Name Role Phone Pritesh Chu MD Primary Care Provider [phone] Encounter Details Date Type Department Care Team (Late st Contact Info) Description 10/10/2023 Orders Only [facility] Oncology and Hematology - [place] [address] [place] [address] [address] [place] [address] Christopher Meeks MD [address] [facility] [address] [place] [address] Malignant melanoma of lower extremity, [...] Primary documented in this encounter Care Teams Economics Instructor Relationship Specialty Start Date End Date Pritesh Chu MD [address] [place] [address] PCP - General Family Practice 09/13/23 documented as of this encounter
--- OUTSIDE RECORDS SUMMARY | 2024-10-27 03:15 | XMS_ITS | Encounter Summary ---
Author Organization [facility] Address [address] [place] [address] Care Team Providers Care Neck Cutter Name Role Phone Pritesh Chu MD Primary Care Provider [phone] Reason for Referral * Eval and Treat (Routine) - Closed Specialty Diagnoses / Procedures Referred By Contac t Referred To Contact Surgery Diagnoses Malignant melanoma of lower extremity, unspecified laterality Procedures SD OFFICE/OUTPATIENT ESTABLISHED MOD MDM 30-39 MIN SD OFFICE/OUTPATIENT NEW MODERATE MDM 45-59 MINUTES Christopher Meeks MD [address] [employer] [address] [place] [address] Maikol Alonso MD NO ADDRESS ON FILE Referral ID Status Reason Start Date Expiration Date V isits Requested Visits Authorized [id number] Closed [facility] CTS 09/13/2023 09/12/2024 1 1 E COMMERCE MARKETING MANAGER * Eval and Treat (Routine) - Closed Specialty Diagnoses / Procedures Referred By Contac t Referred To Contact Oncology Diagnoses Malignant melanoma of lower extremity, unspecified laterality Procedures SD OFFICE/OUTPATIENT ESTABLISHED MOD MDM 30-39 MIN SD OFFICE/OUTPATIENT NEW MODERATE MDM 45-59 MINUTES Christopher Meeks MD [address] [employer] [address] [place] [address] Referral ID Status Reason Start Date Expiration Date V isits Requested Visits Authorized [id number] Closed [facility] CTS 09/13/2023 09/13/2024 1 1 E COMMERCE MARKETING MANAGER Reason for Visit * Reason Comments Establish Care Encounter Details Date Type Department Care Team (Late st Contact Info) Description 09/13/2023 8:30 AM E COMMERCE MARKETING MANAGER Office Visit [facility] Oncology and Hematology - [place] [address] [facility] 200 [place] [address] Christopher Meeks MD [address] [facility] [address] [place] [address] Malignant [...] Comments Blood Pressure 144/91 09/13/2023 8:50 AM E COMMERCE MARKETING MANAGER Pulse 88 09/13/2023 8:48 AM E COMMERCE MARKETING MANAGER Temperature 36.5 ??C (97.7 ??F) 09/13/2023 8:48 AM CS T Respiratory Rate 10 09/13/2023 8:48 AM E COMMERCE MARKETING MANAGER Oxygen Saturation 100% 09/13/2023 8:48 AM E COMMERCE MARKETING MANAGER Inhaled Oxygen Concentration - - Weight 129.3 kg (285 lb) 09/13/2023 8:48 AM E COMMERCE MARKETING MANAGER Height 170.2 cm (5' 7 ) 09/13/2023 8:48 AM E COMMERCE MARKETING MANAGER Body Mass Index 44.64 09/13/2023 8:48 AM E COMMERCE MARKETING MANAGER documented in this encounter Progress Notes * [...] dysuria; no frequency; no hesitancy; no hematuria TANK CAR MECHANIC: Musculosketetal: Patient did not mention bone pain; [...] of the total time spent counseling patient [id number]. CC:?Requesting Physician Jonel De MD Primary Care Physician Pritesh Chu MD E COMMERCE MARKETING MANAGER documented in this encounter Plan of [...] Primary documented in this encounter Care Teams Neck Cutter Relationship Specialty Start Date End Date Pritesh Chu MD [address] [place] [address] PCP - General Family Practice 09/13/23 documented as of this encounter
--- OUTSIDE RECORDS SUMMARY | 2024-10-27 03:15 | XMS_ITS | Encounter Summary ---
Author Organization [facility] [employer] [facility] Address [address] [place] [address] Care Team Providers Care Administrative Nursing Supervisor Name Role Phone Pritesh Chu MD Primary Care Provider Encounter Details Date Type Department Care Team (Late st Contact Info) Description 09/20/2023 Abstract [facility] Oncology and Hematology - [place] [address] [place] [address] [address] [place] [address] Christopher Meeks MD [address] [facility] [address] [place] [address] Social History Tobacco Use Types [...] filedocumented in this encounter Care Teams Administrative Nursing Supervisor Relationship Specialty Start Date End Date Pritesh Chu MD [address] [place] [address] PCP - General Family Practice 09/13/23 documented as of this encounter
--- OUTSIDE RECORDS SUMMARY | 2024-10-27 03:15 | XMS_ITS | Encounter Summary ---
Author Organization [facility] [employer] [facility] Address [address] [place] [address] Care Team Providers Care Butt Presser Name Role Phone Pritesh Chu MD Primary Care Provider [phone] Encounter Details Date Type Department Care Team (Late st Contact Info) Description 09/20/2023 Orders Only [facility] Oncology and Hematology - [place] [address] [facility] [address] [place] [address] Christopher Meeks MD [address] [facility] [address] [place] [address] Malignant melanoma of lower extremity, [...] test documented in this encounter Care Teams Butt Presser Relationship Specialty Start Date End Date Pritesh Chu MD [address] [place] [address] PCP - General Family Practice 09/13/23 documented as of this encounter
--- OUTSIDE RECORDS SUMMARY | 2024-10-27 03:17 | XMS_ITS | Encounter Summary ---
Author Organization [facility] Address [address] [place] [address] Phone Care Team Providers Care Homeland Security Program Specialist Name Role Phone Pritesh Chu MD Primary Care Provider Encounter Details Date Type Department Care Team (Late st Contact Info) Description 08/07/2024 Patient Outreach - [facility] [employer] [facility] [address] [facility] [address] [place] [address] Letty Garcia [address] [address] [facility] [facility] [address] [place] [address] Social History Tobacco Use Types [...] 14 calendar days:: Home Discharging Facility: [facility] Discharge diagnosis: N17.9, K52.9, C43.9 Date of [...] on filedocumented in this encounter Care Teams Homeland Security Program Specialist Relationship Specialty Start Date End Date Pritesh Chu MD [address] [place] [address] PCP - General Family Medicine 07/29/24 documented as of this encounter
--- OUTSIDE RECORDS SUMMARY | 2024-10-27 03:17 | XMS_ITS | Encounter Summary ---
Author Organization [facility] Facility Address [address] [place] [address] Care Team Providers Care Softball Player Name Role Phone Pritesh Chu MD Primary Care Provider [phone] Encounter Details Date Type Department Care Team [...] on filedocumented in this encounter Care Teams Softball Player Relationship Specialty Start Date End Date Pritesh Chu MD [address] [place] [address] PCP - General Family Medicine 07/29/24 documented as of this encounter
--- OUTSIDE RECORDS SUMMARY | 2024-10-27 03:17 | XMS_ITS | Encounter Summary ---
Author Organization [employer] [facility] Address [address] [place] [address] [address] [place] [address] Phone Care Team Providers Care Investigative Agent Name Role Phone Pritesh Chu MD Primary Care Provider [phone] Encounter Details Date Type Department Care Team (Late st Contact Info) Description 08/08/2024 Documentation Only [employer] [facility] [address] [facility] [address] [place] [address] Urbano Quiñonez MD [address] [place] [address] [address] [place], [place] [id number] Social History Tobacco Use Types Packs/Day Years [...] on filedocumented in this encounter Care Teams Investigative Agent Relationship Specialty Start Date End Date Pritesh Chu MD [address] [place] [address] PCP - General Family Medicine 07/29/24 documented as of this encounter
--- OUTSIDE RECORDS SUMMARY | 2024-10-27 03:18 | XMS_ITS | Encounter Summary ---
Author Organization [facility] , [facility] Address [address] [place] [address] Phone Care Team Providers Care Shipping Lead Name Role Phone Pritesh Chu MD Primary Care Provider [phone] Encounter Details Date Type Department Care Team (Late st Contact Info) Description 08/01/2024 Patient Outreach - [facility] [employer] [facility] Emergency DepartmentMoSo [facility] [address] [facility] [address] [place] [address] Letty Garcia [address] [address] [place] [address] Social History Tobacco Use Types [...] filedocumented in this encounter Care Teams Shipping Lead Relationship Specialty Start Date End Date Pritesh Chu MD [address] [place] [address] PCP - General Family Medicine 07/29/24 documented as of this encounter
--- OUTSIDE RECORDS SUMMARY | 2024-10-27 03:18 | XMS_ITS | Encounter Summary ---
Author Organization [employer] [facility] Address [address] [place] [address] [address] [place] [address] Phone Care Team Providers Care Cream Cheese Maker Name Role Phone Pritesh Chu MD Primary Care Provider [phone] Encounter Details Date Type Department Care Team (Late st Contact Info) Description 08/01/2024 Documentation Only [employer] [facility] [address] [facility] [address] [place] [address] Urbano Quiñonez MD [address] [place] [address] [address] [place], [place] [id number] Social History Tobacco Use Types Packs/Day Years [...] on filedocumented in this encounter Care Teams Cream Cheese Maker Relationship Specialty Start Date End Date Pritesh Chu MD [address] [place] [address] PCP - General Family Medicine 07/29/24 documented as of this encounter
--- OUTSIDE RECORDS SUMMARY | 2024-10-27 03:18 | XMS_ITS | Encounter Summary ---
Author Organization [facility] , [facility] Address [address] [place] [address] Phone Care Team Providers Care Webbing Supervisor Name Role Phone Pritesh Chu MD Primary Care Provider [phone] Encounter Details Date Type Department Care Team (Late st Contact Info) Description 08/02/2024 Patient Outreach - TCM [place] [employer] [facility] [address] [facility] [address] [place] [address] Letty Garcia [address] [facility] [address] [place] [address] Social History Tobacco Use Types [...] Call Status: No answer - second attempt ([facility] 08.02.24) documented in this encounter Plan of Treatment Not on file documented as of this encounter Visit Diagnoses Not on filedocumented in this encounter Care Teams Webbing Supervisor Relationship Specialty Start Date End Date Pritesh Chu MD [address] [place] [address] PCP - General Family Medicine 07/29/24 documented as of this encounter
--- OUTSIDE RECORDS SUMMARY | 2024-10-27 03:18 | XMS_ITS | Encounter Summary ---
Author Organization [facility] Address [address] [place] [address] [address] [place] [address] Phone Care Team Providers Care Filer And Sander Name Role Phone Pritesh Chu MD Primary Care Provider [phone] Encounter Details Date Type Department Care Team (Late st Contact Info) Description 07/31/2024 Documentation Only [facility] [address] [facility] [address] [place] [address] Urbano Quiñonez MD [address] [place] [address] [address] [place], [place] [id number] Social History Tobacco Use Types Packs/Day Years [...] on filedocumented in this encounter Care Teams Filer And Sander Relationship Specialty Start Date End Date Pritesh Chu MD [address] [place] [address] [place] [address] PCP - General Family Medicine 07/29/24 documented as of this encounter
--- OUTSIDE RECORDS SUMMARY | 2024-10-27 03:35 | XMS_ITS | Patient Health Summary ---
Author Organization [facility] Address [address] [facility] [place] [address] Care Team Providers Care Retail Operations Manager Name Role Phone Priya Sprague MD Primary Care Provider [phone] Haja Garcia MD Unavailable Note from [facility],non-owned Affiliates and Associated Physician Practices is amultiple site organization consisting of ambulatory clinics and hospital sitesin [place], [place], [place] and [place]. This disclosure is being madepursuant to the Care Everywhere program and may not contain all information available regarding this patient. Last updated 18.[facility] Allergies No known active allergies Medications Be [...] henselae Antibody IgM Negative Neg:<1:10 0 titer [facility] Comment: Results for this test are for research purposes only by the assay's machine applicator cementer. ??The performance characteristics of this product have not been established. ??Results should not be used as a diagnostic procedure without confirmation of the diagnosis by another medically established diagnostic product or procedure. Blood specimen (specimen) BLOOD SPECIMEN / Unknown 07/26/2016 9:50 AM CDT 07/26/2016 1:00 PM CDT Narrative Resulting Agency Comment [address] ??[facility] [phone] Sudeep Gloria DO LAB - SEROLOGY ORDERABLES [facility] INSURANCE BILL [address] [place] [address] * (ABNORMAL) MYCOPLASMA PNEUMO ANTIBODY IGG/IGM PANEL (07/26/2016 9:50 AM CDT) Pathologist [facility] [place] Mycoplasma pneumoniae Antibody IgG 1,927(H) 0 - [...] Comment [facility] [place] [address] ??[place] [phone] Sudeep Gloria DO LAB - SEROLOGY ORDERABLES [facility] INSURANCE BILL [address] [place] [address] * (ABNORMAL) STANLEY-MORAES VIRUS PANEL (07/26/2016 9:50 [...] PM CDT Narrative Resulting Agency Comment [facility] [address] [facility] ??[facility] [phone] Sudeep Gloria DO LAB - CHEMISTRY ORDERABLES [facility] INSURANCE BILL [address] [place] [address] * CBC W AUTO DIFFERENTIAL (07/26/2016 9:50 [...] PM CDT Narrative Resulting Agency Comment [facility] [address] [facility] ??[facility] [phone] Sudeep Gloria DO LAB - HEMATOLOG Y ORDERABLES [facility] INSURANCE BILL [address] [place] [address] * (ABNORMAL) COMPREHENSIVE METABOLIC PANEL (07/26/2016 9:50 [...] 1:00 PM CDT Narrative Resulting Agency [facility] [place] [address] ??[facility] [phone] Sudeep Gloria DO LAB - CHEMISTRY ORDERABLES Performing Organization Address City/[facility]/ZIP Co de Phone Number [facility] INSURANCE BILL [address] [place] [address] * TSH (07/26/2016 9:50 AM CDT) TSH 1.690 0.450 - 4.500 uIU/mL [facility] INSURANCE BILL 07/26/2016 9:50 AM CDT 07/26/2016 1:00 PM CDT Narrative Resulting Agency Comment [facility] [address] ??[facility] [phone] Sudeep Gloria DO LAB - CHEMISTRY ORDERABLES Performing Organization Address [facility]/ZIP Co de Phone Number [facility] INSURANCE BILL [address] [place] [address] * (ABNORMAL) LIPID PROFILE (07/26/2016 9:50 AM [...] 1:00 PM CDT Narrative Resulting Agency Comment [facility] [address] ??[facility] [phone] Sudeep Gloria DO LAB - CHEMISTRY ORDERABLES [facility] INSURANCE BILL [address] [place] [address] * (ABNORMAL) STREP A SCREEN - POINT OF CARE (AMB) (09/25/2010 10:33 AM LOADING RACK SUPERVISOR) Strep A Rapid POCT positive NEGATIVE - POSITIVE Strep A Internal Control NEGATIVE - POSITIVE Throat swab (specimen) ENTIRE THROAT (SURFACE REGION OF NECK) / Unknown 09/25/2010 10:33 AM LOADING RACK SUPERVISOR Terrie Anderson MD LAB - POINT OF CARE ORDERABLES * GROSS + MICRO EXAM (07/28/2007 4:30 PM CDT) Result CASE NUMBER [id number] [facility] LAB PATH REPORT Comment: ORDERING PHYSICIAN [...] diameter. ??The specimen is serially sectioned, and apprenticeship training representative sections are submitted in cassette A [...] and interpreted by the attending (teaching) pathologist. Drill Operator Pneumatic ? AD YARBROUGH RESIDENT IN PATHOLOG Mikala Reid M.D. PATHOLOGIST ?Ezekiel Eli M.D. ELECTRONICALLY NEVINEzekiel Sarabia MISCELLANEOUS SAMPLES / Unknown 07/28/2007 4:30 PM CDT 07/31/2007 8:08 AM CDT Historical Provider MD LAB - PATHOLOGY/C YTOLOGY ORDERABLES [facility] LAB PATH REPORT Care Teams Retail Operations Manager Relationship Specialty Start Date End Date Priya Sprague MD PCP - General Pediatrics 09/13/14 Haja Garcia MD [address] [facility] [address] [place] [address] PCP - Attributed-[facility] [place] 09/07/23
--- OUTSIDE RECORDS SUMMARY | 2024-10-27 03:35 | XMS_ITS | Encounter Summary ---
Author Organization [facility] Address [address] [place] [address] Care Team Providers Care Group Sales Coordinator Name Role Phone Priya Sprague MD Primary Care Provider [phone] Reason for Visit * Reason Comments Pain Tailbone Encounter Details Date Type Department Care Team (Late st Contact Info) Description 04/10/2018 10:30 AM CDT Office Visit [facility] - Pediatrics [address] [place] [phone] Sudeep Gloria DO [address] [place] [phone] Coccygeal pain (Primary Dx) Social History [...] Where can I go for more information? [employer] Academy of Pediatrics ( ) www.aap.org HealthyChildren.org www.healthychildren.org U.S. Department of Health and Human Services www.hhs.gov Website and free downloadable taylor for smartphones: http://www.Phorm/ Use safety retraint in car Lifestyle On track( 016 10:41 AM CDT) No Kiana Shaw RN documented as of this encounter Visit Diagnoses Diagnosis Coccygeal pain- Primary Other disorder of coccyx documented in this encounter Care Teams Group Sales Coordinator Relationship Specialty Start Date End Date Priya Sprague MD PCP - General Pediatrics 09/13/14 documented as of this encounter
--- OUTSIDE RECORDS SUMMARY | 2024-10-27 03:35 | XMS_ITS | Encounter Summary ---
Author Organization [facility] Address [address] [place] [address] Care Team Providers Care Licensed Architect Name Role Phone Priya Sprague MD Primary Care Provider [phone] Reason for Visit * Reason Comments Swelling right side of jaw x1 month Encounter Details Date Type Department Care Team (Late st Contact Info) Description 07/26/2016 9:20 AM CDT Office Visit [facility] Medical [facility] - Pediatrics [address] [place] [address] 6 [place] [address] Mindi Collazo DO [address] [place] [phone] Mass (Primary Dx) Social History Tobacco [...] noticeable. Energy level sleeps more than before. [place]cl[place] this was more school. No rashes. No [...] Where can I go for more information? [place] Academy of Pediatrics ( ) www.aap.org HealthyChildren.org www.healthychildren.org U.S. Department of Health and Human Services www.hhs.gov Website and free downloadable taylor for Afluentas: http://www.alife studios inc/ Use safety retraint in car Lifestyle On [...] PM CDT Narrative Resulting Agency Comment [facility] [address] ??[facility] [phone] Mindi Collazo DO LAB - SEROLOGY ORDERABLES [facility] INSURANCE BILL [address] [facility] [address] * (ABNORMAL) MARLIN-MORAES VIRUS PANEL (07/26/2016 9:50 [...] PM CDT Narrative Resulting Agency Comment [facility] [address] ??[facility] [phone] Mindi Collazo DO LAB - CHEMISTRY ORDERABLES [facility] INSURANCE BILL [address] [place] [address] * (ABNORMAL) COMPREHENSIVE METABOLIC PANEL (07/26/2016 9:50 [...] PM CDT Narrative Resulting Agency Comment [facility] [address] ??[facility] [phone] Mindi Collazo DO LAB - CHEMISTRY ORDERABLES [facility] INSURANCE BILL [address] [place] [address] * CBC W AUTO DIFFERENTIAL (07/26/2016 9:50 [...] PM CDT Narrative Resulting Agency Comment [facility] [address] [facility] ??[facility] [phone] Mindi Collazo DO LAB - HEMATOLOG Y ORDERABLES Performing Organization Address [facility] Co de Phone Number [facility] INSURANCE BILL [address] [place] [address] * BARTONELLA HENSELAE ANTIBODY PANEL (07/26/2016 9:50 AM CDT) Bartonella henselae Antibody IgG Negative Neg:<1:32 0 titer [facility] INSURANCE BILL Bartonella henselae Antibody IgM Negative Neg:<1:10 0 titer [facility] INSURANCE BILL Comment: Results for this test are for research purposes only by the assay's representative personal service. ??The performance characteristics of this product have not been established. ??Results should not be used as a diagnostic procedure without confirmation of the diagnosis by another medically established diagnostic product or procedure. Blood specimen (specimen) BLOOD SPECIMEN / Unknown 07/26/2016 9:50 AM CDT 07/26/2016 1:00 PM CDT Narrative Resulting Agency Comment [facility] [address] ??[facility] [phone] Mindi Collazo DO LAB - SEROLOGY ORDERABLES Performing Organization Address City/[facility] Co de Phone Number [facility] INSURANCE BILL [address] [place] [address] documented in this encounter Visit Diagnoses Diagnosis Mass- Primary Localized superficial swelling, mass, or lump documented in this encounter Care Teams Licensed Architect Relationship Specialty Start Date End Date Priya Sprague MD PCP - General Pediatrics 09/13/14 documented as of this encounter
--- OUTSIDE RECORDS SUMMARY | 2024-10-27 03:35 | XMS_ITS | Referral Summary ---
Author Organization [facility] Address [address] [facility] [place] [address] Care Team Providers Care Document Management Technician Name Role Phone Priya Sprague MD Primary Care Provider [phone] Haja Garcia MD Unavailable Source Comments [facility],non-owned Affiliates and Associated Physician Practices is amultiple site organization consisting of ambulatory clinics and hospital sitesin [place], [place], [place] and [place]. This disclosure is being madepursuant to the Care Everywhere program and may not contain all information available regarding this patient. Last updated 18.[facility] Allergies No known active allergies Medications [...] Where can I go for more information? [place] Academy of Pediatrics ( ) www.aap.org HealthyChildren.org www.healthychildren.org U.S. Department of Health and Human Services www.Quintura.gov Website and free downloadable taylor for smartphones: http://www.Circle Inc/ Use safety retraint in car Lifestyle On track( 016 10:41 AM CDT) No Yohana-Kiana Horn RN Care Teams Document Management Technician Relationship Specialty Start Date End Date Priya Sprague MD PCP - General Pediatrics 09/13/14 Haja Garcia MD [address] [facility] [address] [place] [address] PCP - Attributed-[facility] [place] 09/07/23
--- OUTSIDE RECORDS SUMMARY | 2024-10-27 03:35 | XMS_ITS | Clinical Summary ---
Author Organization [facility] Address [address] [facility] [place] [address] Care Team Providers Care Automotive Sales Specialist Name Role Phone Priya Sprague MD Primary Care Provider [phone] Haja Garcia MD Unavailable Source Comments [facility],non-owned Affiliates and Associated Physician Practices is amultiple site organization consisting of ambulatory clinics and hospital sitesin [place], [place], [place] and [place]. This disclosure is being madepursuant to the Care Everywhere program and may not contain all information available regarding this patient. Last updated 18.[facility] Allergies No known active allergies Medications Be [...] Where can I go for more information? [place] Academy of Pediatrics ( ) www.aap.org HealthyChildren.org www.healthychildren.org U.S. Department of Health and Human Services www.hhs.gov Website and free downloadable taylor for smartphones: http://www.AppHero/ Use safety retraint in car Lifestyle On track( 016 10:41 AM CDT) No Kiana Shaw RN Care Teams Automotive Sales Specialist Relationship Specialty Start Date End Date Priya Sprague MD PCP - General Pediatrics 09/13/14 Haja Garcia MD [address] [facility] [address] [place] [phone] PCP - Attributed-[facility] [place] 09/07/23
--- OUTSIDE RECORDS SUMMARY | 2024-10-27 03:35 | XMS_ITS | Encounter Summary ---
Author Organization [facility] Address [address] [facility] [place] [address] Care Team Providers Care Attractions Associate Name Role Phone Priya Sprague MD Primary Care Provider [phone] Encounter Details Date Type Department Care Team (Late st Contact Info) Description 07/26/2016 Orders Only [facility] Medical [facility] - Pediatrics [address] [place] [phone] [place] [address] [place] [phone] Social History Tobacco Use Types Packs/Day [...] Where can I go for more information? [employer] Academy of Pediatrics ( ) www.aap.org HealthyChildren.org www.healthychildren.org U.S. Department of Health and Human Services www.hhs.gov Website and free downloadable taylor for 9Lensess: http://www.CalmSea/ Use safety retraint in car Lifestyle On [...] PM CDT Narrative Resulting Agency Comment [facility] [address] ??[facility] [phone] Sudeep Gloria DO LAB - CHEMISTRY ORDERABLES [facility] INSURANCE BILL [address] [place] [address] * (ABNORMAL) LIPID PROFILE (07/26/2016 9:50 AM [...] PM CDT Narrative Resulting Agency Comment [facility] [address] [facility] [phone] Sudeep Gloria DO LAB - CHEMISTRY ORDERABLES [facility] INSURANCE BILL [address] [place] [address] documented in this encounter Visit Diagnoses Not on filedocumented in this encounter Care Teams Attractions Associate Relationship Specialty Start Date End Date Priya Sprague MD PCP - General Pediatrics 09/13/14 documented as of this encounter
--- OUTSIDE RECORDS SUMMARY | 2024-10-27 03:36 | XMS_ITS | Encounter Summary ---
Author Organization [facility] Address [address] [place] [address] Care Team Providers Care Engineering Research Manager Name Role Phone Priya Sprague MD Primary Care Provider [phone] Reason for Visit * Reason Onset Date Comments Complete Physical Exam 06/22/2016 Encounter Details Date Type Department Care Team (Late st Contact Info) Description 06/22/2016 11:00 AM CDT Office Visit [facility] Medical [facility] - Pediatrics [address] [place] [phone] Priya Sprague MD [address] [place] [phone] Encounter for routine child health examination [...] 96.72% 06/22 10:38 AM CDT Growth Chart: [facility] (Girls, 2- 20 Years) documented in [...] 98%ile (Z=2.10) based on CDC 2-20 Years riuzyh-ngz-zsy data using vitals from 06/22/2016. Ht Readings from Last 1 Encounters: 06/22/16 1.699 m (5' 6.88 ) (87 %*, Z = 1.11) * Growth percentiles are based on CDC 2-20 Years data. 87%ile (Z=1.11) based on CDC 2-20 Years vhphzjb-kgt-ydb data using vitals from 06/22/2016. IMMUNIZATIONS One [...] dishes 2. Prepare simple family meals 3. [place] leaves 4. Take the trash out for [...] The texts and phone calls can WAIT. [place] and [place] law, effective July 04, 2006, says your child must be in a booster seat if they are ages 4 through 7 who weigh at least 40 pounds, unless they are 80 pounds or 4???9?? tall. DO NOT ALLOW ANYONE TO SMOKE AROUND YOUR CHILD. DIET Make sure that your child is eating breakfast in the morning early intervention school psychologist. Encourage them to eat at least 3 [...] Where can I go for more information? [place] Academy of Pediatrics ( ) www.aap.org, HealthyChildren.org www.healthychildren.org Website and free downloadable taylor for smartphones: http://www.US HealthVest/ and http://www.Playspace/ documented in this encounter Progress Notes * Priya Sprague MD - 06/22/2016 10:47 AM CDT Adolescent WCC Reviewed Nurse's Adolescent Note PHX: depression, cutting Medications: none ROS Has been trying to eat more fruits and veggies. Has been trying to lose weight Stomachaches, Headaches: No Constipation/Diarrhea: No Girls: Menses Yes: monthly, lasts 7 days Social History: School: [employer], Grade 11th. Home:lives with mom Activity/Exercise: fair. With exercise, CP, SOB, dizziness? No Alcohol: denies Drugs:denies Sex:denies Smoking:denies Pwkotbuiph-MRM-7 score : 6 see scanned Mom reports [...] 98%ile (Z=2.10) based on CDC 2-20 Years tzoiyu-voj-moo data using vitals from 06/22/2016. 87%ile (Z=1.11) based on CDC 2-20 Years wukmxhi-rla-zdt data using vitals from 06/22/2016. BP 124/64 [...] Where can I go for more information? [place] Academy of Pediatrics ( ) www.aap.org HealthyChildren.org www.healthychildren.org U.S. Department of Health and Human Services www.hhs.gov Website and free downloadable taylor for smartphones: http://Droid system master.Drugstore.com/ Use safety retraint in car Lifestyle On [...] type documented in this encounter Care Teams Engineering Research Manager Relationship Specialty Start Date End Date Priya Sprague MD PCP - General Pediatrics 09/13/14 documented as of this encounter
--- OUTSIDE RECORDS SUMMARY | 2024-10-27 03:37 | XMS_ITS | Encounter Summary ---
Author Organization [facility] Address [address] [facility] [place] [address] Care Team Providers Care Concrete Products Machine Operator Name Role Phone Unavailable Primary Care Provider Unavailabl e Reason for Visit * Reason Comments Cough productive cough x3 weeks URI occasional sneezing, stuffy nose with greenish exudate x3 weeks Fever today; temp 101 Sore Throat today Encounter Details Date Type Department Care Team (Late st Contact Info) Description 03/23/2011 2:15 PM CDT Office Visit [facility] - Pediatrics [address] [place] [phone] Priya Sprague MD [address] [place] [phone] Acute sinusitis, unspecified (Primary Dx) Social [...]
--- OUTSIDE RECORDS SUMMARY | 2024-10-27 03:37 | XMS_ITS | Encounter Summary ---
Author Organization [facility] Address [address] [facility] [address] Care Team Providers Care Crew Lead Name Role Phone Terrie Anderson MD Primary Care Provider [phone] Encounter Details Date Type Department Care Team (Late st Contact Info) Description 07/28/2007 Orders Only [facility] - Laboratory [address] [place] [address] ProviderKd MD Social History Tobacco Use Types [...] PM CDT) Result CASE NUMBER [id number] [facility] LAB PATH REPORT Comment: ORDERING PHYSICIAN [...] diameter. ??The specimen is serially sectioned, and cash posting representative sections are submitted in cassette A [...] and interpreted by the attending (teaching) pathologist. Worship Leader ? AD YARBROUGH RESIDENT IN PATHOLOG Mikala Reid M.D. PATHOLOGIST ?Ezekiel Eli M.D. ELECTRONICALLY NEVIN Ezekiel Eli MISCELLANEOUS SAMPLES / Unknown 07/28/2007 4:30 PM CDT 07/31/2007 8:08 AM CDT Historical Provider LAB - PATHOLOGY/C YTOLOGY ORDERABLES [facility] LAB PATH REPORT documented in this encounter Visit Diagnoses Not on filedocumented in this encounter Care Teams Crew Lead Relationship Specialty Start Date End Date Terrie Anderson MD PCP - General Pediatrics 11/19/11 09/12/14 documented as of this encounter
--- OUTSIDE RECORDS SUMMARY | 2024-10-27 03:37 | XMS_ITS | Encounter Summary ---
Author Organization [facility] Address [address] [place] [address] Care Team Providers Care It Systems Manager Name Role Phone Priya Sprague MD Primary Care Provider [phone] Reason for Visit * Reason Comments URI x 2 weeks c/o cough, burning sinuses, runny stuffy nose, fever ^101. Sore throat. Encounter Details Date Type Department Care Team (Late st Contact Info) Description 10/28/2014 2:45 PM SLITTER OPERATOR Office Visit [facility] Medical [facility] - Pediatrics [address] [place] [address] 6 [place] [address] Urbano العراقي MD [address] [place], [place] [phone] Sinusitis, acute (Primary Dx); Obesity Social History [...] (234 lb 3.2 oz) 10/28/2014 2:35 PM SLITTER OPERATOR Height 168.9 cm (5' 6.5 ) 10/28/2014 2:35 PM SLITTER OPERATOR Body Mass Index 37.23 10/28/2014 2:35 PM SLITTER OPERATOR Body Mass Index Percentile 99.44% 10/28/2014 2:3 5 PM SLITTER OPERATOR Growth Chart: [facility] (Girls, 2- 20 Years) documented [...] Encounter ??? amoxicillin-clavulanate (AUGMENTIN) 875-[address]PER[address] documented in this encounter Plan of Treatment Not on file documented as of this encounter Visit Diagnoses Diagnosis Sinusitis, acute- Primary Acute sinusitis, unspecified Obesity Obesity, unspecified documented in this encounter Care Teams It Systems Manager Relationship Specialty Start Date End Date Priya Sprague MD PCP - General Pediatrics 09/13/14 documented as of this encounter
--- OUTSIDE RECORDS SUMMARY | 2024-10-27 03:37 | XMS_ITS | Encounter Summary ---
Author Organization [facility] Address [address] [place] [address] Care Team Providers Care Airport Planner Name Role Phone Priya Sprague MD Primary Care Provider [phone] Reason for Visit * Reason Comments Imm Inj Encounter Details Date Type Department Care Team (Latest Contact Info) Description 04/18/2015 11:00 AM CDT Clinical Support [facility] Medical [facility] - Pediatrics [address] [place] [phone] Need for prophylactic vaccination and inoculation against [...] diseases documented in this encounter Care Teams Airport Planner Relationship Specialty Start Date End Date Priya Sprague MD PCP - General Pediatrics 09/13/14 documented as of this encounter
--- OUTSIDE RECORDS SUMMARY | 2024-10-27 03:37 | XMS_ITS | Encounter Summary ---
Author Organization [facility] Address [address] [place] [address] [place] [address] Care Team Providers Care Lead Nuclear Medicine Technologist Name Role Phone Unavailable Primary Care Provider Unavailabl e Reason for Visit * Reason Comments Cough Ear Problem Encounter Details Date Type Department Care Team (Late st Contact Info) Description 03/01/2011 3:40 PM CDT Office Visit [facility] Medical [facility] - Pediatrics [address] [place] [phone] Terrie Anderson MD [address] [place] [address] Acute sinusitis, unspecified (Primary Dx) [...]
--- OUTSIDE RECORDS SUMMARY | 2024-10-27 03:37 | XMS_ITS | Encounter Summary ---
Author Organization [facility] Address [address] [place] [address] Care Team Providers Care Caddy Packer Name Role Phone Terrie Anderson MD Primary Care Provider [phone] Reason for Visit * Reason Comments Complete Physical Exam 9th grade physica l Encounter Details Date Type Department Care Team (Late st Contact Info) Description 07/05/2014 3:00 PM CDT Office Visit [facility] Medical [facility] - Pediatrics [address] [place] [phone] Pirya Sprague MD [address] [place] [phone] Well child check (Primary Dx); BMI [...] 99%ile (Z=2.55) based on CDC 2-20 Years yrbsge-oem-tcc data using vitals from 07/05/2014. 90%ile (Z=1.27) based on CDC 2-20 Years xuzjwjn-nqs-bgu data using vitals from 07/05/2014. IMMUNIZATIONS At [...] machinery. Plan to ride with a designated local delivery driver or to call for a [...] and regular physical ac tivity. ORAL HEALTH: [place] your teeth twice a day with a [...] normal, but having sex should be a rlsd-naehnyw-szv decision. Delay having sex until you and [...] those for curfews or driving. Share in steel construction worker. Learn about how you can take on [...] a TV or computer in your room. www.Diet TV: A great site for older teens that includes ways to communicate with peers when they experience online bullying that is not cool . www.Layer3 TV.org: A site for younger and older teens, as well as parents, with many suggestions oninternet safety www.Varaa.comtz.org: A site presented by the National Center for Missing and Exploited Children with information for kids, teens and parents, much of it focused on avoiding cyber bullying. documented in this encounter Progress Notes * Priya Sprague MD - 07/05/2014 3:07 PM CDT Adolescent [facility] Nurse Screen: Parental/Patient Concerns: none Diet: Milk 2%, 8-16 ounces per day. +cheese Vegetables: fair, fruits: good, Dental: regular dental visits? No Hearing / Vision: concerns? No //////////////////////////////////////////////////////////////////////////////// /////////////////// Note: PHX:healthy Medications: none ROS Stomachaches, Headaches: No Constipation/Diarrhea: No Girls: Menses Yes: monthl, regular, lasts 6 days Social History: School: [employer], Grade 9th. Home:lives with mom, dad Activity/Exercise: poor Alcohol:denies Drugs:denies Sex:denies Smoking:denies Eqdjjyyswb-PZN-8 score : 17 (+) --with mom out [...] 2-20 Years data. 99%ile (Z=2.55) based on [facility] 2-20 Years vgviyo-rzh-rwu data using vitals from 07/05/2014. 90%ile (Z=1.27) based on CDC 2-20 Years bvppxmm-led-ndq data using vitals from 07/05/2014. BP 120/60 [...] classified documented in this encounter Care Teams Caddy Packer Relationship Specialty Start Date End Date Terrie Anderson MD PCP - General Pediatrics 11/19/11 09/12/14 documented as of this encounter
--- OUTSIDE RECORDS SUMMARY | 2024-10-27 03:37 | XMS_ITS | Encounter Summary ---
Author Organization [facility] Address [address] [place] [address] Care Team Providers Care Quiller Operator Name Role Phone Priya Sprague MD Primary Care Provider [phone] Reason for Visit * Reason Comments Imm Inj Encounter Details Date Type Department Care Team (Latest Contact Info) Description 09/13/2014 3:50 PM PHP ARCHITECT Clinical Support [facility] Medical [facility] - Pediatrics [address] [place] [phone] Need for prophylactic vaccination and inoculation against [...] diseases documented in this encounter Care Teams Quiller Operator Relationship Specialty Start Date End Date Priya Sprague MD PCP - General Pediatrics 09/13/14 documented as of this encounter
--- OUTSIDE RECORDS SUMMARY | 2024-10-27 03:37 | XMS_ITS | Encounter Summary ---
Author Organization [facility] Address [address] [place] [address] Care Team Providers Care Email Deployment Specialist Name Role Phone Unavailable Primary Care Provider Unavailabl e Reason for Visit * Reason Comments Cough since mid February Encounter Details Date Type Department Care Team (Late st Contact Info) Description 04/12/2011 10:40 AM CDT Office Visit [facility] - Pediatrics [address] [place] [phone] Terrie Anderson MD [address] [place] [address] Acute sinusitis, unspecified (Primary Dx) [...]
--- OUTSIDE RECORDS SUMMARY | 2024-10-27 03:37 | XMS_ITS | Encounter Summary ---
Author Organization [facility] Address [address] [place] [address] Care Team Providers Care Ignition Mechanic Name Role Phone Unavailable Primary Care Provider Unavailabl e Reason for Visit * Reason Comments Enlarged Tonsils moreno on left side Sore Throat past 7 days Cough night and day Swelling Gland left neck Encounter Details Date Type Department Care Team (Latest Contact Info) Description 09/25/2010 9:50 AM CHLORINE PLANT OPERATOR Office Visit [facility] Medical [facility] - Pediatrics [address] [place] [address] [address] [place] [phone] Terrie Anderson MD [address] [phone] Streptococcal pharyngitis (Primary Dx) Social [...] (122 lb 9.6 oz) 09/25/2010 10:02 AM CHLORINE PLANT OPERATOR Height - - Body Mass Index - [...] the electronic medical record Symptomatic treatment discussed. RINE PLANT OPERATOR documented in this encounter Plan of Treatment Not on file documented as of this encounter Procedures Procedure Name Priority Date/Time Associated Diagnosis Comments STREP A SCREEN - POINT OF CARE (AMB) Routine 09/25/2010 10:33 AM CHLORINE PLANT OPERATOR Streptococcal pharyngitis documented in this encounter Results * (ABNORMAL) STREP A SCREEN - POINT OF CARE (AMB) (09/25/2010 10:33 AM CHLORINE PLANT OPERATOR) Strep A Rapid POCT positive NEGATIVE - POSITIVE Strep A Internal Control NEGATIVE - POSITIVE Throat swab (specimen) ENTIRE THROAT (SURFACE REGION OF NECK) / Unknown 09/25/2010 10:33 AM CHLORINE PLANT OPERATOR Terrie Anderson MD LAB - POINT OF CARE ORDERABLES documented in this encounter Visit Diagnoses Diagnosis Streptococcal pharyngitis- Primary Streptococcal sore throat documented in this encounter
--- OUTSIDE RECORDS SUMMARY | 2024-10-27 03:37 | XMS_ITS | Encounter Summary ---
Author Organization [facility] Address [address] [facility] [place] [address] Care Team Providers Care Technical Maintenance Specialist Name Role Phone Unavailable Primary Care Provider Unavailabl e Reason for Visit * Reason Comments Complete Physical Exam Encounter Details Date Type Department Care Team (Late st Contact Info) Description 04/19/2011 2:30 PM CDT Office Visit [facility] Medical [facility] - Pediatrics [address] [place] [phone] Terrie Anderson MD [address] [place] [address] Routine infant or child health [...] 04/19/2011 3:1 1 PM CDT Growth Chart: [facility] (Girls, 2- 20 Years) documented [...] BMI-for-age. 98.52% of growth percentile based on xnbvrk-gpz-mxg. 92.87% of growth percentile based on vyfgedg-qvb-tyb. IMMUNIZATIONS At the time of high school [...] Seat belt yes Wears a helment: no [place] teeth twice per day: sometimes she forgets [...] age Need for prophylactic vaccination with combined osbqvkuthy-lijbxqd-qpxqiktoq (DTP) vaccine Obesity Obesity, unspecified documented in this encounter
--- OUTSIDE RECORDS SUMMARY | 2024-10-27 03:38 | XMS_ITS | Encounter Summary ---
Author Organization [facility] Address [address] [facility] [place] [address] Phone Care Team Providers Care Pattern Worker Name Role Phone Pritesh Chu MD Primary Care Provider Markus Finley MD Unavailable [phone] Zander Cha MD Unavailable Reason for Visit * Episode Based Medications (Routine) - Closed Specialty Diagnoses / Procedures Referred By Contross t Referred To Contact Diagnoses Metastatic melanoma (HCC) Markus Finley MD [address] [place] [address] Phone: tel: fax: [facility] [address] [place] [address] Phone: tel: fax: Referral ID Status Reason Start Date Expiration Date Visits Re quested Visits Authorized [id number] Closed 04/19/2024 1 30 Encounter Details Date Type Department Care Team (Late st Contact Info) Description 10/02/2024 2:30 PM SECONDARY SCHOOL TEACHER Clinical Support [facility] [address] [place] [phone] Markus Finley MD [address] [place] [address] Metastatic melanoma (HCC) (Primary Dx) Discharge Disposition: Discharged to home or Selfcare Social History Tobacco Use Types Packs/Day Years Used Date Smoking Tobacco: Former Cigarettes 0.5 5.6 S tarted: 04/18/2016 Smokeless Tobacco: Never Alcohol Use Standard Drinks/Week Comments Not Currently 0 (1 standard drink = 0.6 oz pur e alcohol) quit 2023 [facility] Utilities Answer Date Recorded In the past 12 months has [employer] electric, gas, oil, or water company threatened [...] attend chur ch or amish services? Never 09/25/2024 Do you belong to [...] medical care, and heating? Somewhat hard 09/25/2024 [place] [facility] Questionnaire Answer Date Recorded [...] Comments Blood Pressure 137/91 10/02/2024 2:44 PM SECONDARY SCHOOL TEACHER Pulse 76 10/02/2024 2:44 PM SECONDARY SCHOOL TEACHER Temperature 36.6 ??C (97.8 ??F) 10/02/2024 2:44 PM CS T Respiratory Rate 16 10/02/2024 2:44 PM SECONDARY SCHOOL TEACHER Oxygen Saturation 98% 10/02/2024 2:44 PM SECONDARY SCHOOL TEACHER Inhaled Oxygen Concentration - - Weight 119.7 kg (263 lb 12.8 oz) 10/02/2024 2:44 PM SECONDARY SCHOOL TEACHER Height - - Body Mass Index 42.58 09/11/2024 2:01 PM SECONDARY SCHOOL TEACHER documented in this encounter Miscellaneous Notes * [...] with bandaid. Pt left in safe disposition. NDARY SCHOOL TEACHER documented in this encounter Plan of Treatment Upcoming Encounters Date Type Department Care Team (Late st Contact Info) Description 11/15/2024 1:00 PM SECONDARY SCHOOL TEACHER Lab [facility] [address] [place] [phone] Markus Finley MD [address] [place] [address] 11/15/2024 2:00 PM SECONDARY SCHOOL TEACHER [facility]ointment [facility] [address] [place] [phone] Markus Finley MD [address] [place] [address] Discharge Disposition: Discharged to home or Selfcare documented as of this encounter Procedures Procedure Name Priority Date/Time Associated Diagnosis Comments CBC WITH AUTO DIFFERENTIAL STAT 10/02/2024 3:08 PM SECONDARY SCHOOL TEACHER Metastatic melanoma (HCC) THYROID STIMULATING HORMONE (TSH) STAT 10/02/2024 3:08 PM SECONDARY SCHOOL TEACHER Metastatic melanoma (HCC) CMP (COMPREHENSIVE METABOLIC PANEL) STAT 10/02/2024 3:08 PM SECONDARY SCHOOL TEACHER Metastatic melanoma (HCC) COMPLETE BLOOD COUNT (CBC) WITH DIFF STAT 10/02/2024 3:08 PM SECONDARY SCHOOL TEACHER Metastatic melanoma (HCC) documented in this encounter Results * (ABNORMAL) CBC WITH AUTO DIFFERENTIAL (10/02/2024 3:08 PM SECONDARY SCHOOL TEACHER) WBC 6.72 4.00 - 12.00 10(3)/mcL 10/02/2024 3:24 PM SECONDARY SCHOOL TEACHER [facility] RBC 3.73(L) 3.80 - 5.30 10(6)/mcL 10/02/2024 3:24 PM SECONDARY SCHOOL TEACHER [facility] HEMOGLOBIN (HGB) 11.9(L) 12.0 - 15.8 g/dL 10/02/2024 3:24 PM SECONDARY SCHOOL TEACHER [facility] HEMATOCRIT (HCT) 36.2 36.0 - 47.0 % 10/02/2024 3:24 PM SECONDARY SCHOOL TEACHER [facility] MCV 97.1(H) 82.0 - 96.0 fL 10/02/2024 3:24 PM SECONDARY SCHOOL TEACHER [facility] MCH 31.9 26.0 - 34.0 pg 10/02/2024 3:24 PM SECONDARY SCHOOL TEACHER [facility] MCHC 32.9 31.0 - 36.0 g/dL 10/02/2024 3:24 PM SECONDARY SCHOOL TEACHER [facility] PLATELET COUNT 204 140 - 440 10(3)/mcL 10/02/2024 3:24 PM SECONDARY SCHOOL TEACHER [facility] RDW 14.3 11.8 - 15.5 % 10/02/2024 3:24 PM SECONDARY SCHOOL TEACHER [facility] MPV 10.6 9.7 - 12.4 fL 10/02/2024 3:24 PM SECONDARY SCHOOL TEACHER [facility] NEUTROPHILS 83.7(H) 47.0 - 73.0 % 10/02/2024 3:24 PM SECONDARY SCHOOL TEACHER [facility] LYMPHOCYTES 10.7(L) 18.0 - 42.0 % 10/02/2024 3:24 PM SECONDARY SCHOOL TEACHER [facility] MONOCYTES 5.4 4.0 - 12.0 % 10/02/2024 3:24 PM [facility] EOSINOPHILS 0.1 0.0 - 5.0 % 10/02/2024 3:24 PM [facility] BASOPHILS 0.1 0.0 - 1.0 % 10/02/2024 3:24 PM [facility] ABSOLUTE NEUTROPHILS 5.62 1.60 - 7.70 10(3)/[facility] 10/02/2024 3:24 PM [facility] ABSOLUTE LYMPHOCYTES 0.72(L) 1.30 - 3.20 10(3)/[facility] 10/02/2024 3:24 PM [facility] ABSOLUTE MONOCYTES 0.36 0.20 - 1.00 10(3)/[facility] 10/02/2024 3:24 PM [facility] ABSOLUTE EOSINOPHIL 0.01 0.00 - 0.40 10(3)/[facility] 10/02/2024 3:24 PM [facility] ABSOLUTE BASOPHILS 0.01 0.00 - 0.10 10(3)/[facility] 10/02/2024 3:24 PM [facility] NRBC PER 100 WBC 0 10/02/20 3:24 PM [facility] Blood Sub-Q Port Venou s Access Device (Medi-Port, Implanted Port) / Unknown 10/02/2024 3:08 PM SECONDARY SCHOOL TEACHER 10/02/2024 3:[address] [facility] Markus Finley MD HEMATOLOGY ORDERABLES Fi nal Result [facility] [address] [place] [address] * THYROID STIMULATING HORMONE (TSH) (10/02/2024 3:08 PM SECONDARY SCHOOL TEACHER) TSH 1.466 0.300 - 5.000 mIU/L 10/02/2024 3:59 PM SECONDARY SCHOOL TEACHER [facility] Blood Sub-Q Port Venou s Access Device (Medi-Port, Implanted Port) / Unknown 10/02/2024 3:08 PM SECONDARY SCHOOL TEACHER 10/02/2024 3:08 PM SECONDARY SCHOOL TEACHER Markus Finley MD CHEMISTRY ORDERABLES Fin al Result Performing Organization Address [facility]/ZIP Co de Phone Number [facility] [address] [place] [address] * (ABNORMAL) CMP (COMPREHENSIVE METABOLIC PANEL) (10/02/2024 3:08 PM SECONDARY SCHOOL TEACHER) SODIUM 136 136 - 145 mmol/L 10/02/2024 3:40 PM SECONDARY SCHOOL TEACHER [facility] POTASSIUM 4.5 3.5 - 5.1 mmol/L 10/02/2024 3:40 PM SECONDARY SCHOOL TEACHER [facility] CHLORIDE 109(H) 98 - 107 mmol/L 10/02/2024 3:40 PM SECONDARY SCHOOL TEACHER [facility] CO2, VENOUS 21(L) 22 - 30 mmol/L 10/02/2024 3:40 PM SECONDARY SCHOOL TEACHER [facility] ANION GAP 10.5 <18.0 mmol/L 10/02/2024 3:40 PM SECONDARY SCHOOL TEACHER [facility] GLUCOSE 118(H) 70 - 99 mg/dL 10/02/2024 3:40 PM SECONDARY SCHOOL TEACHER [facility] BUN 21(H) 5 - 18 mg/dL 10/02/2024 3:40 PM SECONDARY SCHOOL TEACHER [facility] CREATININE, BLOOD 0.94 0.60 - 1.00 mg/dL 10/02/2024 3:40 PM [facility] BUN/CREATININE RATIO 22(H) 12 - 20 ratio 10/02/2024 3:40 PM [facility] TOTAL PROTEIN 6.2(L) 6.3 - 8.2 g/dL 10/02/2024 3:[address] [facility] ALBUMIN 3.9 3.5 - [...] TO BE FASTING? No 10/02/2024 3:40 PM [facility] GFR, ESTIMATED >60 >=60 10/02/2024 3:40 PM [facility] Comment: Creatinine Clearance is the preferred criteria for selecting drug dose adjustments in renally impaired patients. ??The GFR is provided as additional pertinent clinical information. GFR is reported in mL/min/1.73 sq m. Calculation based on the Chronic Kidney Disease Epidemiology Collaboration (CKD- EPI) equation refit without adjustment for race. GFR, EST. >60 >=60 024 3:40 PM [facility] GFR, EST. NONAFRICAN >60 >=60 10/02/2024 3:40 PM [facility] Blood Sub-Q Port Venou s Access Device (Medi-Port, Implanted Port) / Unknown 10/02/2024 3:08 PM SECONDARY SCHOOL TEACHER 10/02/2024 3:08 PM SECONDARY SCHOOL TEACHER Markus Finley MD CHEMISTRY ORDERABLES Fin al Result [facility] [place] [address] documented in this encounter Visit Diagnoses Diagnosis [...] melanoma (HCC) New Bag 10/02/2024 2:45 PM SECONDARY SCHOOL TEACHER 1,000 mL 999 mL/hr Heparin Na (Pork) Lock Flsh PF SOLN 50 Units 50 Units, Intravenous, ONCE, 1 dose, On Tue10/02/24 at 1530Indications:Metastatic melanoma (HCC) Given 10/02/2024 2:01 PM SECONDARY SCHOOL TEACHER 50 Units documented in this encounter Care Teams Pattern Worker Relationship Specialty Start Date End Date Pritesh Chu MD [address] [place] [address] PCP - General Family Medicine 04/18/24 Markus Finley MD [address] [place] [address] Consulting Physician Medical Oncology 04/18/24 Zander Cha MD [address] [address] Consulting Physician Colon and Rectal Surgery 08/24/24 documented as of this encounter
--- OUTSIDE RECORDS SUMMARY | 2024-10-27 03:38 | XMS_ITS | Clinical Summary ---
Author Organization [facility] Address [address] [place] [address] Phone Care Team Providers Care Frame Runner Name Role Phone Pritesh Chu MD Primary Care Provider [phone] Markus Finley MD Unavailable [phone] Zander Cha MD Unavailable Allergies No known [...] Type Department Care Team Description 10/24/2024 Refill [facility] [address] [place] [phone] Markus Finley MD Medication Refill 10/21/2024 Travel 10/08/2024 Telephone [facility] [address] [place] [phone] Markus Finley MD 10/05/2024 Transcribe Orders [facility] [address] [place] [address] [place] [address] Markus Finley MD Metastatic melanoma (HCC) (Primary Dx) 10/02/2024 3:20 PM VACCINE CUSTOMER REPRESENTATIVE Office Visit [facility] [address] [place] [phone] Markus Finley MD Metastatic melanoma (HCC) (Primary Dx); New daily persistent headache Discharge Disposition: Discharged to home or Selfcare 10/02/2024 2:30 PM VACCINE CUSTOMER REPRESENTATIVE Clinical Support [facility] [address] [place] [phone] Markus Finley MD Metastatic melanoma (HCC) (Primary Dx) Discharge Disposition: Discharged to home or Selfcare 10/02/2024 Travel 09/25/2024 1:30 PM VACCINE CUSTOMER REPRESENTATIVE Clinical Support [facility] [address] [place] [address] Markus Finley MD Dehydration (Primary Dx); Metastatic melanoma (HCC); Nasal discomfort Discharge Disposition: Discharged to home or Selfcare 09/25/2024 Travel 09/25/2024 Patient Outreach [facility] [address] [place] [phone] Navigator, Digital [employer] Social Concerns 09/20/2024 [facility] [address] [place] [phone] Markus Finley MD Medication Refill 09/18/2024 1:30 PM VACCINE CUSTOMER REPRESENTATIVE Clinical Support [facility] [address] [place] [phone] Markus Finley MD Metastatic melanoma (HCC) Discharge Disposition: Discharged to home or Selfcare 09/18/2024 Travel 09/11/2024 1:40 PM VACCINE CUSTOMER REPRESENTATIVE Office Visit [facility] [address] [place] [phone] Markus Finley MD Discharge Disposition: Discharged to home or Selfcare 09/11/2024 1:30 PM VACCINE CUSTOMER REPRESENTATIVE Clinical Support [facility] [address] [place] [phone] Markus Finley MD Metastatic melanoma (HCC) Discharge Disposition: Discharged to home or Selfcare 09/11/2024 Travel 09/10/2024 [facility] [address] [place] [phone] Markus Finley MD Medication Refill 09/07/2024 11:30 AM CDT Clinical Support [facility] [address] [place] [phone] Markus Finley MD Metastatic melanoma (HCC) (Primary Dx) Discharge Disposition: Discharged to home or Selfcare 09/07/2024 Travel 09/07/2024 [facility]phone [facility] [address] [place] [address] Markus Finley MD 09/04/2024 11:15 AM CDT Procedure Visit [facility] [address] [phone] Zander Cha MD Metastatic melanoma (HCC) (Primary Dx); Subcutaneous nodule of left lower extremity Discharge Disposition: Discharged to home or Selfcare 09/04/2024 Travel 08/29/2024 1:00 PM CDT Office Visit [facility] [address] [phone] Markus Finley MD Kumar, Raman, MD Metastatic melanoma (HCC); Subcutaneous nodule of left lower extremity Discharge Disposition: Discharged to home or Selfcare 08/29/2024 [facility] [address] [place] [phone] Makrus Finley MD 08/29/2024 Travel 08/28/2024 [facility] [address] [place] [phone] Markus Finley MD Medication Refill 08/27/2024 [facility]phone [facility] [address] [place] [address] Markus Finley MD 08/24/2024 11:30 AM CDT [facility] [address] [place] [address] Markus Finley MD Diarrhea, unspecified type (Primary Dx); Metastatic melanoma (HCC) Discharge Disposition: Discharged to home or Selfcare 08/24/2024 Travel 08/22/2024 11:30 AM CDT Clinical Support [facility] [address] [place] [phone] Anthony Eckert MD Sandhu, Manpreet Kaur, MD Diarrhea due to drug (Primary Dx); Metastatic melanoma (HCC) Discharge Disposition: Discharged to home or Selfcare 08/22/2024 Travel 08/20/2024 1:40 PM CDT Clinical Support [facility] [address] [place] [phone] Markus Finley MD Metastatic melanoma (HCC) (Primary Dx) Discharge Disposition: Discharged to home or Selfcare 08/20/2024 1:00 PM CDT Office Visit [facility] [address] [place] [phone] Markus Finley MD Non-alcoholic fatty liver disease (Primary Dx); Diarrhea due to drug; Morbid obesity (HCC); Hypokalemia due to excessive gastrointestinal loss of potassium; Hypothyroidism due to medication; Metastatic melanoma (HCC); Subcutaneous nodule of left lower extremity Discharge Disposition: Discharged to home or Selfcare 08/20/2024 Travel 08/16/2024 Telephone [facility] [address] [place] [phone] Markus Finley MD 08/15/2024 11:35 AM CDT - 08/15/2024 11:59 PM CDT Hospital Encounter [facility] PET [address] [place] [phone] Markus Finley MD Discharge Disposition: Discharged to home or Selfcare 08/15/2024 11:30 AM CDT Clinical Support [facility] [address] [place] [phone] Markus Finley MD Metastatic melanoma (HCC) Discharge Disposition: Discharged to home or Selfcare 08/15/2024 Travel 08/14/2024 Telephone [facility] [address] [place] [phone] Markus Finley MD 08/13/2024 11:30 AM CDT Clinical Support [facility] [address] [place] [phone] Markus Finley MD Acute renal failure, unspecified acute renal failure type (HCC) (Primary Dx); Metastatic melanoma (HCC) Discharge Disposition: Discharged to home or Selfcare 08/13/2024 Travel 08/10/2024 11:00 AM CDT Clinical Support [facility] [address] [place] [phone] Markus Finley MD Metastatic melanoma (HCC) (Primary Dx); Acute renal failure, unspecified acute renal failure type (HCC) Discharge Disposition: Discharged to home or Selfcare 08/10/2024 Travel 08/09/2024 Patient Outreach [facility] [employer] Control Specialist Management [address] [place] [phone] Lucille Lawson RN Transition of Care (Week #1 ) 08/08/2024 11:30 AM CDT Clinical Support [facility] [address] [place] [phone] Markus Finley MD Metastatic melanoma (HCC) Discharge Disposition: Discharged to home or Selfcare 08/08/2024 Travel 08/07/2024 Patient Outreach [facility] [employer] Specialist Management [address] [place] [address] Lucille Lawson RN 08/06/2024 11:30 AM CDT Clinical Support [facility] [address] [place] [phone] Markus Finley MD Diarrhea due to drug (Primary Dx); Metastatic melanoma (HCC) Discharge Disposition: Discharged to home or Selfcare 08/06/2024 10:40 AM CDT Office Visit [facility] [address] [place] [phone] Markus Finley MD Metastatic melanoma (HCC) (Primary Dx); Hypothyroidism due to medication; Acute renal failure, unspecified acute renal failure type (HCC); Hypokalemia due to excessive gastrointestinal loss of potassium; Dehydration; Immunotherapy; Diarrhea due to drug Discharge Disposition: Discharged to home or Selfcare 08/06/2024 Post Discharge Follow-up [facility] [address] [place] [phone] Arline Rojo RN 08/06/2024 Travel 08/04/2024 Patient Outreach [facility] [employer] Specialist Management [address] [place] [phone] Yadira Gill RN Transition of Care 08/01/2024 2:20 PM CDT Office Visit [facility] [address] [place] [phone] Markus Finley MD Other specified hypothyroidism (Primary Dx); Diarrhea due to drug; Acute renal failure, unspecified acute renal failure type (HCC); Dehydration; Hypokalemia due to excessive gastrointestinal loss of potassium; Metastatic melanoma (HCC); Immunotherapy Discharge Disposition: Discharged to home or Selfcare 08/01/2024 12:38 PM CDT - 08/03/2024 6:15 PM CDT Hospital Encounter [facility] [address] [place] [phone] Graciela Jonas PAC Landry, Scott Lewis, MD Krishna, Naveen Kumar, MD Acute renal failure, unspecified acute renal failure type (HCC) Discharge Disposition: Home Health Care [facility] 08/01/2024 10:30 AM CDT Clinical Support [facility] [address] [place] [phone] Markus Finley MD Diarrhea due to drug (Primary Dx); Metastatic melanoma (HCC) Discharge Disposition: Discharged to home or Selfcare 08/01/2024 Post Discharge Follow-up [facility] [address] [place] [phone] Arline Rojo RN 08/01/2024 Travel 07/31/2024 Patient Outreach [facility] [employer] Specialist Management [address] [place] [phone] Maday Suarez RN Transition of Care (TCM 1st attempt) 07/25/2024 11:42 AM CDT - 07/30/2024 3:39 PM CDT Hospital Encounter [facility] [address] [place] [phone] Gael Morales MD Dianati, Behfar, MD Patel, [...] 0.6 oz pur e alcohol) quit 2023 [facility] Utilities Answer Date Recorded In [...] Comments Blood Pressure 137/91 10/02/2024 2:56 PM VACCINE CUSTOMER REPRESENTATIVE Pulse 76 10/02/2024 2:56 PM VACCINE CUSTOMER REPRESENTATIVE Temperature 36.6 ??C (97.8 ??F) 10/02/2024 2:56 PM CS T Respiratory Rate 16 10/02/2024 2:56 PM VACCINE CUSTOMER REPRESENTATIVE Oxygen Saturation 98% 10/02/2024 2:56 PM VACCINE CUSTOMER REPRESENTATIVE Inhaled Oxygen Concentration - - Weight 119.7 kg (263 lb 12.8 oz) 10/02/2024 2:56 PM VACCINE CUSTOMER REPRESENTATIVE Height 167.6 cm (5' 6 ) 10/02/2024 2:56 PM VACCINE CUSTOMER REPRESENTATIVE Body Mass Index 42.58 10/02/2024 2:56 PM VACCINE CUSTOMER REPRESENTATIVE Plan of Treatment Upcoming Encounters Date Type Department Care Team (Late st Contact Info) Description 11/15/2024 1:00 PM VACCINE CUSTOMER REPRESENTATIVE Lab [facility] [address] [place] [address] Markus Finley MD [address] [place] [address] 11/15/2024 2:00 PM VACCINE CUSTOMER REPRESENTATIVE Appointment [facility] [address] [place] [address] Markus Finley MD [address] [place] [address] Discharge Disposition: Discharged to home or Selfcare [...] Needs Food Insecurity Recommended 09/25/2024 11:54 AM VACCINE CUSTOMER REPRESENTATIVE [employer] [facility] Food Insecurity Needs Food Insecurity Recommended 09/25/2024 11:54 AM VACCINE CUSTOMER REPRESENTATIVE [facility] Financial Resource Needs, Food Insecurity Needs Financial Resource Strain, Food Insecurity Recommended 09/25/2024 11:54 AM VACCINE CUSTOMER REPRESENTATIVE [facility] - Mental Health Services Mental Health Evaluation Stress Recommended 09/25/2024 11:54 AM VACCINE CUSTOMER REPRESENTATIVE [place] [facility] Division of Mental Health - Inpatient Services Mental Health Evaluation, Mental Health Services Stress Recommended 09/25/2024 11:54 AM VACCINE CUSTOMER REPRESENTATIVE [facility] HealthCare - [facility] Home Care Services - Psychiatric Care Medications for Mental Health, Mental Health Education, Mental Health Evaluation, Mental Health Services Stress Recommended 09/25/2024 11:54 AM VACCINE CUSTOMER REPRESENTATIVE from Last 12 Months Procedures Procedure Name Priority Date/Time Associated Diagnosis Comments CBC WITH AUTO DIFFERENTIAL STAT 10/02/2024 3:08 PM VACCINE CUSTOMER REPRESENTATIVE Metastatic melanoma (HCC) THYROID STIMULATING HORMONE (TSH) STAT 10/02/2024 3:08 PM VACCINE CUSTOMER REPRESENTATIVE Metastatic melanoma (HCC) CMP (COMPREHENSIVE METABOLIC PANEL) STAT 10/02/2024 3:08 PM VACCINE CUSTOMER REPRESENTATIVE Metastatic melanoma (HCC) COMPLETE BLOOD COUNT (CBC) WITH DIFF STAT 10/02/2024 3:08 PM VACCINE CUSTOMER REPRESENTATIVE Metastatic melanoma (HCC) CBC WITH AUTO DIFFERENTIAL STAT 09/25/2024 2:03 PM VACCINE CUSTOMER REPRESENTATIVE Metastatic melanoma (HCC) THYROID STIMULATING HORMONE (TSH) STAT 09/25/2024 2:03 PM VACCINE CUSTOMER REPRESENTATIVE Metastatic melanoma (HCC) COMPLETE BLOOD COUNT (CBC) WITH DIFF STAT 09/25/2024 2:03 PM VACCINE CUSTOMER REPRESENTATIVE Metastatic melanoma (HCC) CMP (COMPREHENSIVE METABOLIC PANEL) STAT 09/25/2024 2:03 PM VACCINE CUSTOMER REPRESENTATIVE Metastatic melanoma (HCC) CBC WITH AUTO DIFFERENTIAL STAT 09/18/2024 2:21 PM VACCINE CUSTOMER REPRESENTATIVE Metastatic melanoma (HCC) THYROID STIMULATING HORMONE (TSH) STAT 09/18/2024 2:21 PM VACCINE CUSTOMER REPRESENTATIVE Metastatic melanoma (HCC) CMP (COMPREHENSIVE METABOLIC PANEL) STAT 09/18/2024 2:21 PM VACCINE CUSTOMER REPRESENTATIVE Metastatic melanoma (HCC) COMPLETE BLOOD COUNT (CBC) WITH DIFF STAT 09/18/2024 2:21 PM VACCINE CUSTOMER REPRESENTATIVE Metastatic melanoma (HCC) CBC WITH AUTO DIFFERENTIAL STAT 09/11/2024 1:32 PM VACCINE CUSTOMER REPRESENTATIVE Metastatic melanoma (HCC) COMPLETE BLOOD COUNT (CBC) WITH DIFF STAT 09/11/2024 1:32 PM VACCINE CUSTOMER REPRESENTATIVE Metastatic melanoma (HCC) CMP (COMPREHENSIVE METABOLIC PANEL) STAT 09/11/2024 1:32 PM VACCINE CUSTOMER REPRESENTATIVE Metastatic melanoma (HCC) MAGNESIUM (MG) Routine 09/11/2024 1:32 PM VACCINE CUSTOMER REPRESENTATIVE CBC WITH AUTO DIFFERENTIAL STAT 09/07/2024 11:55 [...] CBC WITH AUTO DIFFERENTIAL (10/02/2024 3:08 PM VACCINE CUSTOMER REPRESENTATIVE) Only the most recent of13 resultswithin the time period is included. WBC 6.72 4.00 - 12.00 10(3)/mcL 10/02/2024 3:24 PM [facility] RBC 3.73(L) 3.80 - 5.30 10(6)/mcL 10/02/2024 3:24 PM [facility] HEMOGLOBIN (HGB) 11.9(L) 12.0 - 15.8 g/dL 10/02/2024 3:24 PM [facility] HEMATOCRIT (HCT) 36.2 36.0 - 47.0 % 10/02/2024 3:24 PM [facility] MCV 97.1(H) 82.0 - 96.0 fL 10/02/2024 3:24 PM [facility] MCH 31.9 26.0 - 34.0 pg 10/02/2024 3:24 PM [facility] MCHC 32.9 31.0 - 36.0 g/dL 10/02/2024 3:24 PM [facility] PLATELET COUNT 204 140 - 440 10(3)/mcL 10/02/2024 3:24 PM [facility] RDW 14.3 11.8 - 15.5 % 10/02/2024 3:24 PM [facility] MPV 10.6 9.7 - 12.4 fL 10/02/2024 3:24 PM [facility] NEUTROPHILS 83.7(H) 47.0 - 73.0 % 10/02/2024 3:24 PM [facility] LYMPHOCYTES 10.7(L) 18.0 - 42.0 % 10/02/2024 3:24 PM [facility] MONOCYTES 5.4 4.0 - 12.0 % 10/02/2024 3:24 PM [facility] EOSINOPHILS 0.1 0.0 - 5.0 % 10/02/2024 3:24 PM VACCINE CUSTOMER REPRESENTATIVE [facility] BASOPHILS 0.1 0.0 - 1.0 % 10/02/2024 3:24 PM VACCINE CUSTOMER REPRESENTATIVE [facility] ABSOLUTE NEUTROPHILS 5.62 1.60 - 7.70 10(3)/[facility] 10/02/2024 3:24 PM VACCINE CUSTOMER REPRESENTATIVE [facility] ABSOLUTE LYMPHOCYTES 0.72(L) 1.30 - 3.20 10(3)/[facility] 10/02/2024 3:24 PM VACCINE CUSTOMER REPRESENTATIVE [facility] ABSOLUTE MONOCYTES 0.36 0.20 - 1.00 10(3)/[facility] 10/02/2024 3:24 PM VACCINE CUSTOMER REPRESENTATIVE [facility] ABSOLUTE EOSINOPHIL 0.01 0.00 - 0.40 10(3)/[facility] 10/02/2024 3:24 PM VACCINE CUSTOMER REPRESENTATIVE [facility] ABSOLUTE BASOPHILS 0.01 0.00 - 0.10 10(3)/[facility] 10/02/2024 3:24 PM VACCINE CUSTOMER REPRESENTATIVE [facility] NRBC PER 100 WBC 0 10/02/20 3:24 PM VACCINE CUSTOMER REPRESENTATIVE [facility] Blood Sub-Q Port Venou s Access Device (Medi-Port, Implanted Port) / Unknown 10/02/2024 3:08 PM VACCINE CUSTOMER REPRESENTATIVE 10/02/2024 3:08 PM VACCINE CUSTOMER REPRESENTATIVE Markus Finley MD HEMATOLOGY ORDERABLES Fi nal Result [facility] [address] [place] [address] * THYROID STIMULATING HORMONE (TSH) (10/02/2024 3:08 PM VACCINE CUSTOMER REPRESENTATIVE) Only the most recent of5 resultswithin the time period is included. TSH 1.466 0.300 - 5.000 mIU/L 10/02/2024 3:59 PM VACCINE CUSTOMER REPRESENTATIVE [facility] Blood Sub-Q Port Venou s Access Device (Medi-Port, Implanted Port) / Unknown 10/02/2024 3:08 PM VACCINE CUSTOMER REPRESENTATIVE 10/02/2024 3:08 PM VACCINE CUSTOMER REPRESENTATIVE Markus Finley MD CHEMISTRY ORDERABLES Fin al Result [facility] [address] [place] [address] * (ABNORMAL) CMP (COMPREHENSIVE METABOLIC PANEL) (10/02/2024 3:08 PM VACCINE CUSTOMER REPRESENTATIVE) Only the most recent of12 resultswithin the time period is included. SODIUM 136 136 - 145 mmol/L 10/02/2024 3:40 PM VACCINE CUSTOMER REPRESENTATIVE [facility] POTASSIUM 4.5 3.5 - 5.1 mmol/L 10/02/2024 3:40 PM VACCINE CUSTOMER REPRESENTATIVE [facility] CHLORIDE 109(H) 98 - 107 mmol/L 10/02/2024 3:40 PM VACCINE CUSTOMER REPRESENTATIVE [facility] CO2, VENOUS 21(L) 22 - 30 mmol/L 10/02/2024 3:40 PM VACCINE CUSTOMER REPRESENTATIVE [facility] ANION GAP 10.5 <18.0 mmol/L 10/02/2024 3:40 PM VACCINE CUSTOMER REPRESENTATIVE [facility] GLUCOSE 118(H) 70 - 99 mg/dL 10/02/2024 3:40 PM VACCINE CUSTOMER REPRESENTATIVE [facility] BUN 21(H) 5 - 18 mg/dL 10/02/2024 3:40 PM VACCINE CUSTOMER REPRESENTATIVE [facility] CREATININE, BLOOD 0.94 0.60 - 1.00 mg/dL 10/02/2024 3:40 PM VACCINE CUSTOMER REPRESENTATIVE [facility] BUN/CREATININE RATIO 22(H) 12 - 20 ratio 10/02/2024 3:40 PM VACCINE CUSTOMER REPRESENTATIVE [facility] TOTAL PROTEIN 6.2(L) 6.3 - 8.2 g/dL 10/02/2024 3:40 PM VACCINE CUSTOMER REPRESENTATIVE [facility] ALBUMIN 3.9 3.5 - 5.0 g/dL 10/02/2024 3:40 PM VACCINE CUSTOMER REPRESENTATIVE [facility] A/G RATIO 1.7 1.0 - 2.2 10/02/2024 3:40 PM VACCINE CUSTOMER REPRESENTATIVE [facility] CALCIUM 9.0 8.7 - 10.5 mg/dL 10/02/2024 3:40 PM VACCINE CUSTOMER REPRESENTATIVE [facility] T BILI 0.2 0.2 - 1.2 mg/dL 10/02/2024 3:40 PM VACCINE CUSTOMER REPRESENTATIVE [facility] SGOT (AST) 17 5 - 34 U/L 10/02/2024 3:40 PM VACCINE CUSTOMER REPRESENTATIVE [facility] SGPT (ALT) 52 0 - 55 U/L 10/02/2024 3:40 PM VACCINE CUSTOMER REPRESENTATIVE [facility] ALKALINE PHOSPHATASE 45 40 - 150 U/L 10/02/2024 3:40 PM VACCINE CUSTOMER REPRESENTATIVE [facility] IS THE PATIENT REQUIRED TO BE FASTING? No 10/02/2024 3:40 PM VACCINE CUSTOMER REPRESENTATIVE [facility] GFR, ESTIMATED >60 >=60 10/02/2024 3:40 PM VACCINE CUSTOMER REPRESENTATIVE [facility] Comment: Creatinine Clearance is the preferred criteria for selecting drug dose adjustments in renally impaired patients. ??The GFR is provided as additional pertinent clinical information. GFR is reported in mL/min/1.73 sq m. Calculation based on the Chronic Kidney Disease Epidemiology Collaboration (CKD- EPI) equation refit without adjustment for race. GFR, EST. >60 >=60 024 3:40 PM VACCINE CUSTOMER REPRESENTATIVE [facility] GFR, EST. NONAFRICAN >60 >=60 10/02/2024 3:40 PM VACCINE CUSTOMER REPRESENTATIVE [facility] Blood Sub-Q Port Venou s Access Device (Medi-Port, Implanted Port) / Unknown 10/02/2024 3:08 PM VACCINE CUSTOMER REPRESENTATIVE 10/02/2024 3:08 PM VACCINE CUSTOMER REPRESENTATIVE us MarkusNorma Finley MD CHEMISTRY ORDERABLES Fin al Result [facility] [address] [place] [address] * MAGNESIUM (MG) (09/11/2024 1:32 PM VACCINE CUSTOMER REPRESENTATIVE) Only the most recent of2 resultswithin the time period is included. MAGNESIUM 2.1 1.6 - 2.6 mg/dL 09/11/2024 2:07 PM VACCINE CUSTOMER REPRESENTATIVE [facility] Blood Sub-Q Port Venou s Access Device (Medi-Port, Implanted Port) / Unknown 09/11/2024 1:32 PM VACCINE CUSTOMER REPRESENTATIVE 09/11/2024 1:33 PM VACCINE CUSTOMER REPRESENTATIVE us Markus Finley MD CHEMISTRY ORDERABLES Fin al Result [facility] [address] [place] [address] * PATHOLOGY SURGICAL (09/04/2024 1:02 PM CDT) Pathologist [facility] Case Report Surgical Pathology Report ? Case: [id number] ? Authorizing Provider: ??Zander Cha MD ? Collected: ? 09/04/2024 01:02 PM ? Ordering Location: ? [facility] - ?Received: ?09/04/2024 01:03 PM ? General Surgery - [place] ? Pathologist: ? Romelia Horn MD PhD ? Specimen: ?Leg, Excision of skin lesion from left lower leg ? 09/06/2024 8:29 AM [facility] FINAL DIAGNOSIS Skin, left lower leg, lesion, excision: - Consistent with metastatic melanoma, 4 mm - Sufficient tumor cells present for molecular studies if clinically indicated 09/06/2024 8:29 AM [facility] Comment A round nodular tumor is present in the dermis. The tumor cells are large epithelioid with large pleomorphic nuclei and prominent nucleoli. There are scant pigments suggesting melanin. 09/06/2024 8:29 AM [facility] Pre-Operative Diagnosis Excision of skin lesion from left lower leg 09/06/2024 8:29 AM [facility] Gross Description A. Excision of [...] hours, 44 minutes. KS/sb 09/06/2024 8:29 AM [facility] Microscopic Description Microscopic examination was performed which supports the final diagnosis. All control tissues stained appropriately. 09/06/2024 8:29 AM [facility] Other LOWER LIMB STRUCTURE / Unknown Non-Phlebotomy Collection / Unknown 09/04/2024 1:02 PM CDT 09/04/2024 1:03 PM CDT us Zander Cha MD PATHOLOGY/CYTOLOGY ORDERABLES Fi nal Result [facility] [address] [place] [address] * EXC SKIN MALIG 0.6-1CM TRUNK,ARM,LEG (09/04/2024 [...] 2 cm. ?? Surgeon: Zander Cha MD Drug Safety Specialist: Debo Bush RN Anesthesia: ??3 cc 1% lidocaine with epi Indications: Dayanraa Hilton is a 24 y.o. female who [...] Negative Negative, Invalid 08/24/2024 1:42 PM CDT [facility] Other STOOL SPECIMEN / Unknown Non-Phlebotomy Collection / Unknown 08/24/2024 11:39 AM CDT 08/24/2024 11:39 AM CDT Markus Finley MD MICROBIOLOGY - GENERAL O RDERABLES Final Result Performing Organization Address [facility] de Phone Number [facility] [address] [place] [address] * PET CT TUMOR IMAGING WHOLE BODY [...] AM T: ??08/16/2024 11:30 AM Report ID: [id number] Reading Location: ??[id number] Procedure Note Zachariah Carrizales MD - 08/16/2024 [...] Zachariah Carrizales M.D. LB: KRUNAL Report ID: [id number] Reading Location: [id number] IMPRESSION: Hypermetabolic left inguinal lymph node measuring [...] SUV of 1.1 compared to 4.1 previously. [facility] Luana Finley MD IMG PET Final Re sult * (ABNORMAL) BASIC METABOLIC PANEL W/ CALCIUM TOTAL (08/10/2024 11:20 AM CDT) Only the most recent of7 resultswithin the time period is included. SODIUM 133(L) 136 - 145 mmol/L 08/10/2024 11:56 AM CDT [facility] POTASSIUM 3.9 3.5 - 5.1 mmol/L 08/10/2024 11:56 AM CDT [facility] CHLORIDE 105 98 - 107 mmol/L 08/10/2024 11:56 AM CDT [facility] CO2, VENOUS 23 22 - 30 mmol/L 08/10/2024 11:56 AM CDT [facility] ANION GAP 8.9 <18.0 mmol/L 08/10/2024 11:56 AM CDT [facility] GLUCOSE 138(H) 70 - 99 mg/dL 08/10/2024 11:56 AM CDT [facility] BUN 15 5 - 18 mg/dL 08/10/2024 11:56 AM CDT [facility] CREATININE, BLOOD 0.86 0.60 - 1.00 mg/dL 08/10/2024 11:56 AM CDT [facility] BUN/CREATININE RATIO 17 12 - 20 ratio 08/10/2024 11:56 AM CDT [facility] CALCIUM 8.9 8.7 - 10.5 mg/dL 08/10/2024 11:56 AM CDT [facility] GFR, ESTIMATED >60 >=60 08/10/2024 11:56 AM CDT [facility] Comment: Creatinine Clearance is the preferred criteria for selecting drug dose adjustments in renally impaired patients. ??The GFR is provided as additional pertinent clinical information. GFR is reported in mL/min/1.73 sq m. Calculation based on the Chronic Kidney Disease Epidemiology Collaboration (CKD- EPI) equation refit without adjustment for race. GFR, EST. >60 >=60 11:56 AM CDT [facility] GFR, EST. NONAFRICAN >60 >=60 08/10/2024 11:56 AM CDT [facility] Blood Sub-Q Port Venou s Access Device (Medi-Port, Implanted Port) / Unknown 08/10/2024 11:20 AM CDT 08/10/2024 11:20 AM CDT us Lee Lan MD CHEMISTRY ORDERABLES Fin al Result Performing Organization Address City/[facility]/ZIP Co de Phone Number [facility] [address] [place] [address] * THYROXINE (T4) FREE (08/03/2024 4:32 AM CDT) T4 FREE 0.7 0.7 - 1.9 ng/dL 08/03/2024 7:20 AM CDT [facility] Blood Venipuncture / Unknown 08/03/2024 4:32 AM CDT 08/03/2024 6:28 AM CDT us Urbano Quiñonez MD CHEMISTRY ORDERABLES Final Result [facility] [address] [place] [address] * Triiodothyrinine (T3) Free (08/03/2024 4:32 AM CDT) FREE T3 1.6 1.6 - 3.9 pg/mL 08/03/2024 4:08 PM CDT [facility] Blood Venipuncture / Unknown 08/03/2024 4:32 AM CDT 08/03/2024 6:28 AM CDT us Urbano Quiñonez MD CHEMISTRY ORDERABLES Final Result [facility] [address] [place] [address], [place] * RHYTHM STRIP (08/03/2024 12:00 AM CDT) Only the most recent of14 resultswithin the time period is included. 08/03/2024 us Provider Scan IMG ECG ORDERABLES Final Result RESULTING AGENCY * Blood Culture #2 (08/01/2024 3:48 PM CDT) Only the most recent of2 resultswithin the time period is included. CULTURE RESULTS NO GROWTH WITHIN 5 DAYS, FINAL RESULT 08/06/2024 5:01 PM CDT [facility] Culture BLOOD SPECIMEN / Unknown Venipuncture / Unknown 08/01/2024 3:48 PM CDT 08/01/2024 4:10 PM CDT us Gael Morales MD MICROBIOLOGY - GENERAL ORD ERABLES Final Result [facility] [address] [place] [address], [place] * XR CHEST SINGLE VIEW PORTABLE [...] PM T: ??08/01/2024 2:59 PM Report ID: [id number] Reading Location: ??[id number] Procedure Note Nisreen Lara MD - 08/01/2024 [...] Nisreen Esteban M.D. FT: FT Report ID: [id number] Reading Location: [place] [id number] IMPRESSION: No acute cardiopulmonary abnormality. Result [facility] Gael Morales MD IMG DIAGNOSTIC ORDERABLES [...] ?Care discussed with: admitting provider ?? Result [facility] Gael Morales MD PROCEDURE/MINOR SURGICAL O RDERABLES Final Result * RACHID MUIR HEPARIN/SST TOP TUBE (08/01/2024 1:30 PM CDT) Only the most recent of2 resultswithin the time period is included. Blood No Phlebotomy Charged / Unknown 08/01/2024 1:30 PM CDT 08/01/2024 1:30 PM CDT Result [facility] Gael Morales MD HEMATOLOGY ORDERABLES Susan l Result [facility] [address] [place] [address] * Gold Top Tube (08/01/2024 1:30 PM CDT) Blood No Phlebotomy Charged / Unknown 08/01/2024 1:30 PM CDT 08/01/2024 1:30 PM CDT Gael Morales MD CHEMISTRY ORDERABLES Final Result Performing Organization Address [facility] Co de Phone Number [facility] [address] [place] [address] * Blue Top Tube (08/01/2024 1:30 PM CDT) Blood No Phlebotomy Charged / Unknown 08/01/2024 1:30 PM CDT 08/01/2024 1:30 PM CDT Gael Morales MD HEMATOLOGY ORDERABLES Susan l Result Performing Organization Address [facility] de Phone Number [facility] [address] [place] [address] * Lavender Top Tube (08/01/2024 1:30 PM CDT) Blood No Phlebotomy Charged / Unknown 08/01/2024 1:30 PM CDT 08/01/2024 1:30 PM CDT Gael Morales MD HEMATOLOGY ORDERABLES Susan l Result Performing Organization Address [facility] de Phone Number [facility] [address] [place] [address] * Hepatitis Panel Acute (AHP) (07/29/2024 4:30 AM CDT) Pathologist [facility] HEPATITIS A IGM ANTIBODY NON DETECTED NON DETECTED 07/29/2024 3:37 PM CDT [facility] Comment: IGM Antibodies to HAV not detected. ??Does not exclude early acute or recovered HAV infection. HEP B CORE AB (IGM) NON DETECTED NON DETECTED 07/29/2024 3:37 PM CDT [facility] Comment:IGM anti-HBC not det ected. Does not exclude the possibility of exposure to or infection with HBV. HEPATITIS B SURFACE ANTIGEN NON DETECTED NON DETECTED 07/29/2024 3:37 PM CDT [facility] Comment:A nonreactive test r esult [...] 0.17 <1 S/CO 07/29/2024 3:37 PM CDT [facility] Comment: Signal/Cutoff ratio ??< 0.79 is Nondetected Signal/Cutoff ratio 0.80-0.99 is Grayzone Signal/Cutoff ratio > 0.99 is Detected Supplemental assays are recommended if signal/cutoff ratio is >/=1.00. ??Signal/cutoff ratio result >/= 5.00 is 97% predictive of positivity for recombinant immunoblot assay (RIBA) and will be reported to the [place] Department of Public Health as required. Blood Venipuncture / Unknown 07/29/2024 4:30 AM CDT 07/29/2024 5:15 AM CDT Urbano Quiñonez MD HEMATOLOGY ORDERABLES Final Result Performing Organization Address City/[facility]/ZIP Co de Phone Number [facility] [address] [place] [address], [place] * C4 Complement (07/29/2024 4:30 AM CDT) C4 COMPLEMENT 23 15 - 57 mg/dL 07/29/2024 3:18 PM CDT [facility] Blood Venipuncture / Unknown 07/29/2024 4:30 AM CDT 07/29/2024 5:15 AM CDT Urbano Quiñonez MD CHEMISTRY ORDERABLES Final Result Performing Organization Address City/[facility]/ZIP Co de Phone Number [facility] [address] [place] [address], [place] * C3 Complement Globulin B-1C (07/29/2024 4:30 AM CDT) C3 COMPLEMENT 133 83 - 193 mg/dL 07/29/2024 3:18 PM CDT [facility] Blood Venipuncture / Unknown 07/29/2024 4:30 AM CDT 07/29/2024 5:15 AM CDT Urbano Quiñonez MD CHEMISTRY ORDERABLES Final Result Performing Organization Address City/[facility]/ZIP Co de Phone Number [facility] [address] [place] [address], [place] * GLOMERULAR BASEMENT MEMBRANE AB, IGG (07/28/2024 10:15 AM CDT) GLOMERULAR BASEMENT MEMBRANE (GBM) <0.2 <1.0 AI 08/07/2024 12:48 PM CDT [facility] Blood Venipuncture / Unknown 07/28/2024 10:15 AM CDT 07/28/2024 12:09 PM CDT Narrative [facility] - 08/07/2024 12:48 PM CDT Antibody testing was performed by multiplex flow immunoassay on the [employer] platform. us Urbano Quiñonez MD IMMUNOLOGY ORDERABLES Final Result Performing Organization Address [facility] Co de Phone Number [facility] [address] [place] [address], [place] * ANCA MPO PR3 (07/28/2024 10:15 AM CDT) PROTEINASE 3 AB <0.2 <1.0 AI 12:48 PM CDT [facility] MYELOPEROXIDASE AB <0.2 <1.0 AI 2023 12:48 PM CDT [facility] Blood Venipuncture / Unknown 07/28/2024 10:15 AM CDT 07/28/2024 12:09 PM CDT Urbano Quiñonez MD IMMUNOLOGY ORDERABLES Final Result [facility] [address] [place] [address], [place] * ANCA IFA SCREEN (07/28/2024 10:15 AM CDT) ANCA IFA SCREEN <1:20 <1:20 titer 07/30/20 12:14 PM CDT [facility] Comment: Expected result is < 1:10. ANCA TITER Not Applicable <1:20, Not Applicable titer 07/30/2024 12:14 PM CDT [facility] ANCA PATTERN Not Applicable 07/30/2024 12:14 PM CDT [facility] Comment: Antineutrophil cytoplasmic antibodies (ANCA) [...] Urbano Quiñonez MD IMMUNOLOGY ORDERABLES Final Result [facility] [address] [place] [address], * (ABNORMAL) Ur Protein/Creatinine Ratio (07/28/2024 10:15 AM CDT) UR PROTEIN RAND, QT 170.7 mg/dL 07/28/2024 12:27 PM CDT [facility] Comment:No reference range h as been established. Consider Clinical Correlation. URINE CREATININE 532.6 mg/dL 07/28/2024 12:27 PM CDT [facility] Comment:No reference range h as been established. Consider Clinical Correlation. URINE PROTEIN/CREATIN INE RATIO 0.32(H) <0.25 07/28/2024 12:27 PM CDT [facility] Urine Non-Phlebotomy Collection / Unknown 07/28/2024 10:15 AM CDT 07/28/2024 12:09 PM CDT us Urbano Quiñonez MD URINE ORDERABLES Final Resu lt Performing Organization Address City/[facility]/ZIP Co de Phone Number [facility] [address] [place] [address] * Hepatitis C Antibody (07/28/2024 10:15 AM CDT) hepatitis C antibody 0.18 <1 S/CO 07/28/2024 10:27 PM CDT [facility] Comment: Signal/Cutoff ratio ??< 0.79 is Nondetected Signal/Cutoff ratio 0.80-0.99 is Grayzone Signal/Cutoff ratio > 0.99 is Detected Supplemental assays are recommended if signal/cutoff ratio is >/=1.00. ??Signal/cutoff ratio result >/= 5.00 is 97% predictive of positivity for recombinant immunoblot assay (RIBA) and will be reported to the [place] Department [facility] Public Health as required. Blood Venipuncture / Unknown 07/28/2024 10:15 AM CDT 07/28/2024 12:09 PM CDT us Urbano Quiñonez MD CHEMISTRY ORDERABLES Final Result Performing Organization Address [facility] Co de Phone Number [facility] [address] [place] [address], [place] * Antinuclear Antibody (BARRETT), Titer If Pos (07/28/2024 10:15 AM CDT) BARRETT SCREEN Negative Negative titer 07/30/2024 11:28 AM CDT [facility] Comment: Antinuclear autoantibodies not detected by IFA at a 1:80 screening dilution of HEp-2 cells. BARRETT TITER Not Applicable Negative, See comment, Not Applicable titer 07/30/2024 11:28 AM CDT [facility] Comment: Antinuclear autoantibodies not detected by IFA at a 1:80 screening dilution of HEp-2 cells. BARRETT PATTERN NOT APPLICABLE 07/30/2024 11:28 AM CDT [facility] Blood Venipuncture / Unknown 07/28/2024 10:15 AM CDT 07/28/2024 12:09 PM CDT Urbano Quiñonez MD IMMUNOLOGY ORDERABLES Final Result Performing Organization Address [facility] Co de Phone Number [facility] [address] [place] [address], [place] from Last [address] [place] [address] MEDICA[place] Advance Directives * Full Code (Latest Code [...] measures to stabilize the patient. Care Teams Frame Runner Relationship Specialty Start Date End Date Pritesh Chu MD [address] [address] PCP - General Family Medicine 04/18/24 Markus Finley MD [address] [place] [address] Consulting Physician Medical Oncology 04/18/24 Zander Cha MD [address] [address] Consulting Physician Colon and Rectal Surgery 08/24/24
--- OUTSIDE RECORDS SUMMARY | 2024-10-27 03:38 | XMS_ITS | Encounter Summary ---
Author Organization [facility] Address [address] [facility] [place] [address] Phone Care Team Providers Care Visual C Developer Name Role Phone Pritesh Chu MD Primary Care Provider [phone] Markus Finley MD Unavailable [phone] Zander Cha MD Unavailable Encounter Details Date Type Department Care Team (Late st Contact Info) Description 10/05/2024 Transcribe Orders [facility] [address] [place], [place] [id number] Markus Finley MD [address] [place] [address] Metastatic melanoma (HCC) (Primary Dx) Social History Tobacco Use Types Packs/Day Years Used Date Smoking Tobacco: Former Cigarettes 0.5 5.6 S tarted: 04/18/2016 Smokeless Tobacco: Never Alcohol Use Standard Drinks/Week Comments Not Currently 0 (1 standard drink = 0.6 oz pur e alcohol) quit 2023 [facility] Utilities Answer Date Recorded In the past 12 months has [employer], gas, oil, or water [email or web address] threatened to shut off services in your [...] medical care, and heating? Somewhat hard 09/25/2024 [facility] - [...] living in a snf (including now)? No 09/25/2024 Sexually Active Control [...] Contact Info) Description 11/15/2024 1:00 PM COMPUTER CLERK Lab [facility] [address] [place] [address] Markus Finley MD [address] [place] [address] 11/15/2024 2:00 PM COMPUTER CLERK [facility]ointment [facility] [address] [facility] [place] [address] Markus Finley MD [address] [place] [address] Discharge Disposition: Discharged to home or Selfcare Scheduled Orders Name Type Priority Associated Diagnoses Orde r Schedule UR TEST QUAL Lab Routine Metastatic melanoma (HCC) Expected: 10/05/2024, Expires: 10/05/2025 documented as of this encounter Visit Diagnoses Diagnosis Metastatic melanoma (HCC)- Primary Melanoma of skin, site unspecified documented in this encounter Care Teams Visual C Developer Relationship Specialty Start Date End Date Pritesh Chu MD [address] [place] [address] PCP - General Family Medicine 04/18/24 Markus Finley MD [address] [place] [address] Consulting Physician Medical Oncology 04/18/24 Zander Cha MD [address] [address] Consulting Physician Colon and Rectal Surgery 08/24/24 documented as of this encounter
--- OUTSIDE RECORDS SUMMARY | 2024-10-27 03:38 | XMS_ITS | Encounter Summary ---
Author Organization [employer] Care Team Providers Care Advisory Software Engineer Name Role Phone Pritesh Chu MD Primary Care Provider [phone] Markus Finley MD Unavailable [phone] Zander Cha MD Unavailable Encounter Details Date Type Department Care Team (Latest Contact Info) Description 10/21/2024 Travel Social History Tobacco Use Types Packs/Day Years Used Date Smoking Tobacco: Former Cigarettes 0.5 5.6 S tarted: 04/18/2016 Smokeless Tobacco: Never Alcohol Use Standard Drinks/Week Comments Not Currently 0 (1 standard drink = 0.6 oz pur e alcohol) quit 2023 [facility] Utilities Answer Date Recorded In the past 12 months has [employer], gas, oil, or water [employer] threatened to shut off services in [...] week 09/25/2024 How often do you attend [facility] or synagogue services? Never 09/25/2024 Do you belong to [...] care, and heating? Somewhat hard 09/25/2024 [facility] [...] living in a intermediate (including now)? No 09/25/2024 Sexually Active Control [...] st Contact Info) Description 11/15/2024 1:00 PM KITCHEN CLERK [facility] [address] [place] [address] Markus Finley MD [address] [place] [address] 11/15/2024 2:00 PM KITCHEN CLERK [facility]ointment [facility] [address] [place] [address] Markus Finley MD [address] [place] [address] Discharge Disposition: Discharged to home or Selfcare documented as of this encounter Visit Diagnoses Not on filedocumented in this encounter Care Teams Advisory Software Engineer Relationship Specialty Start Date End Date Pritesh Chu MD [address] [place], [place] [phone] PCP - General Family Medicine 04/18/24 Markus Finley MD [address] [place] [address] Consulting Physician Medical Oncology 04/18/24 Zander Cha MD [address] [place] [address] Consulting Physician Colon and Rectal Surgery 08/24/24 documented as of this encounter
--- OUTSIDE RECORDS SUMMARY | 2024-10-27 03:38 | XMS_ITS ---
Author Organization [facility] Address [address] [place] [address] Phone Care Team Providers Care Physics Teacher Name Role Phone Pritesh Chu MD Primary Care Provider [phone] Markus Finley MD Unavailable [phone] Zander Cha MD Unavailable Active Problems Problem [...]
--- OUTSIDE RECORDS SUMMARY | 2024-10-27 03:38 | XMS_ITS | Encounter Summary ---
Author Organization [employer] Care Team Providers Care Physician Representative Name Role Phone Pritesh Chu MD Primary Care Provider [phone] Markus Finley MD Unavailable [phone] Zander Cha MD Unavailable Encounter Details Date Type Department Care Team (Latest Contact Info) Description 09/25/2024 Travel Social History Tobacco Use Types Packs/Day Years Used Date Smoking Tobacco: Former Cigarettes 0.5 5.6 S tarted: 04/18/2016 Smokeless Tobacco: Never Alcohol Use Standard Drinks/Week Comments Not Currently 0 (1 standard drink = 0.6 oz pur e alcohol) quit 2023 [facility] Utilities Answer Date Recorded In the past 12 months has [employer], gas, oil, or water [employer] threatened to shut off services in your [...] week 09/25/2024 How often do you attend [facility] or temple services? Never 09/25/2024 Do you belong to [...] medical care, and heating? Somewhat hard 09/25/2024 [facility] - [...] time in the past [address] [facility], were you homeless or living in a jail (including now)? No 09/25/2024 Sexually Active Control [...] on one occasion? Never 09/25/2024 11:46 AM AUTOMATIC LINE SET UP MECHANIC Hayde Hopson documented as of this encounter Plan of Treatment Upcoming Encounters Date Type Department Care Team (Late st Contact Info) Description 11/15/2024 1:00 PM AUTOMATIC LINE SET UP MECHANIC [facility] [address] [place] [phone] Markus Finley MD [address] [place] [address] 11/15/2024 2:00 PM AUTOMATIC LINE SET UP MECHANIC [facility]ment [facility] [address] [place] [address] Markus Finley MD [address] [place] [address] Discharge Disposition: Discharged to home or Selfcare documented as of this encounter Visit Diagnoses Not on filedocumented in this encounter Care Teams Physician Representative Relationship Specialty Start Date End Date Pritesh Chu MD [address] [address] PCP - General Family Medicine 04/18/24 Markus Finley MD [address] [place] [address] Consulting Physician Medical Oncology 04/18/24 Zander Cha MD [address] [address] Consulting Physician Colon and Rectal Surgery 08/24/24 documented as of this encounter
--- OUTSIDE RECORDS SUMMARY | 2024-10-27 03:38 | XMS_ITS | Encounter Summary ---
Author Organization [employer] Care Team Providers Care Wire Winding Machine Tender Name Role Phone Pritesh Chu MD Primary Care Provider [phone] Markus Finley MD Unavailable Zander Cha MD Unavailable Encounter Details Date Type Department Care Team (Latest Contact Info) Description 09/18/2024 Travel Social History Tobacco Use Types Packs/Day Years Used Date Smoking Tobacco: Former Cigarettes 0.5 5.6 S tarted: 04/18/2016 Smokeless Tobacco: Never Alcohol Use Standard Drinks/Week Comments Not Currently 0 (1 standard drink = 0.6 oz pur e alcohol) quit 2023 [facility] Utilities Answer Date Recorded In the past 12 months has [employer], gas, oil, or water [employer] threatened to shut off services in your home? Patient declined 08/01/2024 Social Connection and Isolation Panel [NHANES] A nswer Date Recorded In a typical week, how many times do you talk on the phone with family, friends, or neighbors? Patient declined 08/01/2024 How often do you get togethe r with friends or relatives? Patient declined 08/01/2024 How often do you attend restorationism or gnosticist serv ices? Patient declined 08/01/2024 [...] heating? Patient declined 08/01/2024 [facility] [...] in the past 12 m [facility], were you homeless or [...] st Contact Info) Description 11/15/2024 1:00 PM HEALTH NURSE Lab [facility] [address] [place] [address] Markus Finley MD [address] [place] [address] 11/15/2024 2:00 PM HEALTH NURSE Appointment [facility] [address] [place] [address] Markus Finley MD [address] [place] [address] Discharge Disposition: Discharged to home or Selfcare documented as of this encounter Visit Diagnoses Not on filedocumented in this encounter Care Teams Wire Winding Machine Tender Relationship Specialty Start Date End Date Pritesh Chu MD [address] [place], [place] [id number] PCP - General Family Medicine 04/18/24 Markus Finley MD [address] [place] [address] Consulting Physician Medical Oncology 04/18/24 Zander Cha MD [address] [place] [address] Consulting Physician Colon and Rectal Surgery 08/24/24 documented as of this encounter
--- OUTSIDE RECORDS SUMMARY | 2024-10-27 03:38 | XMS_ITS | Encounter Summary ---
Author Organization [facility] Address [address] [place] [address] Phone Care Team Providers Care Gas Tester Name Role Phone Pritesh Chu MD Primary Care Provider [phone] Markus Finley MD Unavailable [phone] Zander Cha MD Unavailable Reason for Visit * Reason Onset Date Comments Social Concerns 09/25/2024 Encounter Details Date Type Department Care Team (Late st Contact Info) Description 09/25/2024 Patient Outreach [facility] [address] [place] [address] Navigator, scoo mobility [place] Social Concerns Social History Tobacco Use Types Packs/Day Years Used Date Smoking Tobacco: Former Cigarettes 0.5 5.6 S tarted: 04/18/2016 Smokeless Tobacco: Never Alcohol Use Standard Drinks/Week Comments Not Currently 0 (1 standard drink = 0.6 oz pur e alcohol) quit 2023 [facility] Utilities Answer Date Recorded [...] attend chur ch or hoahaoism services? Never 09/25/2024 Do you belong to any clubs o r organizations such as presybeterian groups, unions, fraternal or athletic groups, or [...] medical care, and heating? Somewhat hard 09/25/2024 [facility] - Occupational [...] alcohol? Monthly or less 09/25/2024 11:46 AM STUNT DOUBLE Afshin Hopson Q2: How many drinks containing alcohol do you have on a typical day when you are drinking? 1 or 2 09/25/2024 11:46 AM STUNT DOUBLE Hayde Hopson Q3: How often do you have si x or more drinks on one occasion? Never 09/25/2024 11:46 AM STUNT DOUBLE Hayde Hopson documented as of this encounter [...] 0 min Stress: Stress Concern Present (09/25/2024) [facility] [place] [facility] - Occupational Stress Questionnaire Feeling of Stress : Very much Social Integration: Socially Isolated (09/25/2024) Social Connection and Isolation Panel [NHANES] Frequency of Communication with Friends and Family: More than three times a week Frequency of Social Gatherings with Friends and Family: More than three times a week Attends Buddhism Services: Never Active Member of Clubs or Organizations: No Attends Club or Organization Meetings: Never Marital Status: Never Depression: Not on file No further follow up needed at this time. T DOUBLE documented in this encounter Plan of Treatment Upcoming Encounters Date Type Department Care Team (Late st Contact Info) Description 11/15/2024 1:00 PM STUNT DOUBLE Lab [facility] [address] [place] [address] Markus Finley MD [address] [place] [address] 11/15/2024 2:00 PM STUNT DOUBLE Appointment [facility] [address] [place] [address] Markus Finley MD [address] [place] [address] Discharge Disposition: Discharged to home or Selfcare documented as of this encounter Interventions Community Resource Recommendations Community Resource Services Recommended Domains Addressed Status Status Reason/Outcome Date/Time HIS Service Station Food Insecurity Needs Food Insecurity Recommended 09/25/2024 11:54 AM STUNT DOUBLE [facility] Food Insecurity Needs Food Insecurity Recommended 09/25/2024 11:54 AM STUNT DOUBLE [facility] Financial Resource Needs, Food Insecurity Needs Financial Resource Strain, Food Insecurity Recommended 09/25/2024 11:54 AM STUNT DOUBLE [facility] - Mental Health Services Mental Health Evaluation Stress Recommended 09/25/2024 11:54 AM STUNT DOUBLE [facility] Division of Mental Health - Inpatient Services Mental Health Evaluation, Mental Health Services Stress Recommended 09/25/2024 11:54 AM STUNT DOUBLE [facility] - [facility] Home Care Services - Psychiatric Care Medications for Mental Health, Mental Health Education, Mental Health Evaluation, Mental Health Services Stress Recommended 09/25/2024 11:54 AM STUNT DOUBLE documented as of this encounter Visit Diagnoses Not on filedocumented in this encounter Care Teams Gas Tester Relationship Specialty Start Date End Date Pritesh Chu MD [address] [place] [address] PCP - General Family Medicine 04/18/24 Markus Finley MD [address] [place] [address] Consulting Physician Medical Oncology 04/18/24 Zander Cha MD [address] [address] Consulting Physician Colon and Rectal Surgery 08/24/24 documented as of this encounter
--- OUTSIDE RECORDS SUMMARY | 2024-10-27 03:38 | XMS_ITS | Encounter Summary ---
Author Organization [facility] Address [address] [facility] [place] [address] Phone Care Team Providers Care Malthouse Laborer Name Role Phone Pritesh Chu MD Primary Care Provider [phone] Markus Finley MD Unavailable [phone] Zander Cha MD Unavailable Reason for Referral * Radiology Services (STAT with Interpretation) - Pending Review Specialty Diagnoses / Procedures Referred By Contross t Referred To Contact Radiology Diagnoses Metastatic melanoma (HCC) New daily persistent headache Procedures MRI BRAIN W/WO CONTRAST Markus Finley MD [address] [place] [address] Phone: tel: fax: Referral ID Status Reason Start Date Expiration Date V isits Requested Visits Authorized [id number] Pending Review 10/02/2024 1 1 TIZER OPERATOR Encounter Details Date Type Department Care Team (Late st Contact Info) Description 10/02/2024 3:20 PM DIGITIZER OPERATOR [facility] [address] [place] [address] Markus Finley MD [address] [place] [address] Metastatic melanoma (HCC) (Primary Dx); New daily persistent headache Discharge Disposition: Discharged to home or Selfcare Social History Tobacco Use Types Packs/Day Years Used Date Smoking Tobacco: Former Cigarettes 0.5 5.6 S tarted: 04/18/2016 Smokeless Tobacco: Never Tobacco Cessation:Counseling Given: Not Answered Alcohol Use Standard Drinks/Week Comments Not Currently 0 (1 standard drink = 0.6 oz pur e alcohol) quit 2023 [facility] [employer] Answer Date Recorded In the past 12 [...] medical care, and heating? Somewhat hard 09/25/2024 [facility] - Occupational Stress [...] Comments Blood Pressure 137/91 10/02/2024 2:56 PM DIGITIZER OPERATOR Pulse 76 10/02/2024 2:56 PM DIGITIZER OPERATOR Temperature 36.6 ??C (97.8 ??F) 10/02/2024 2:56 PM CS T Respiratory Rate 16 10/02/2024 2:56 PM DIGITIZER OPERATOR Oxygen Saturation 98% 10/02/2024 2:56 PM DIGITIZER OPERATOR Inhaled Oxygen Concentration - - Weight 119.7 kg (263 lb 12.8 oz) 10/02/2024 2:56 PM DIGITIZER OPERATOR Height 167.6 cm (5' 6 ) 10/02/2024 2:56 PM DIGITIZER OPERATOR Body Mass Index 42.58 10/02/2024 2:56 PM DIGITIZER OPERATOR documented in this encounter Progress Notes * [...] received on 07/17/24. 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 Patient was discharged home with plans to continue IV NS through infusion clinic along with Prednisone 100 mg po BID plus Levothyroxine 100 mcg po AM. Oral steroids were decreased to Prednisone 100 mg AM with 20 mg PM on 08/10/24. She decreased oral steroids to [id number] mg AM and 20 mg PM on [...] Yervoy and Opdivo on 07/17/24 --admitted to [facility] from 07/25/24 through 07/30/24 and 08/02/24 through 08/03/24 for ALEXX and hypokalemiasecondary to continued diarrhea from immunotherapy colitis. --[id number] BLOOD: positive for BRAF V600E and TSC2 [...] 4.[address] [facility] pelvis [facility] [...] send her to the ENT group at [facility]. Follow up in 3 [...] for Markus Finley MD. 10/02/2024, 3:31 PM DIGITIZER OPERATOR TIZER OPERATOR documented in this encounter Plan of Treatment Upcoming Encounters Date Type Department Care Team (Late st Contact Info) Description 11/15/2024 1:00 PM DIGITIZER OPERATOR [facility] [address] [place] [phone] Markus Finley MD [address] [place] [address] 11/15/2024 2:00 PM DIGITIZER OPERATOR [facility]ointment [facility] [address] [place] [phone] Markus Finley MD [place], [place] [id number] Discharge Disposition: Discharged to home or Selfcare Scheduled Orders Name Type Priority Associated Diagnoses Order Schedule MRI BRAIN W/WO CONTRAST Imaging Stat with Interpretation Metastatic melanoma (HCC) New daily persistent headache Expected: 10/02/2024, Expires: 04/01/2026 documented as of this encounter Visit Diagnoses Diagnosis Metastatic melanoma (HCC)- Primary Melanoma of skin, site unspecified New daily persistent headache documented in this encounter Care Teams Malthouse Laborer Relationship Specialty Start Date End Date Pritesh Chu MD [address] [place] [address] PCP - General Family Medicine 04/18/24 Markus Finley MD [address] [place] [address] Consulting Physician Medical Oncology 04/18/24 Zander Cha MD [address] [address] Consulting Physician Colon and Rectal Surgery 08/24/24 documented as of this encounter
--- OUTSIDE RECORDS SUMMARY | 2024-10-27 03:38 | XMS_ITS | Encounter Summary ---
Author Organization [facility] Address [address] [place] [address] Phone Care Team Providers Care Knitting Machine Operator Automatic Name Role Phone Pritesh Chu MD Primary Care Provider [phone] Markus Finley MD Unavailable [phone] Zander Cha MD Unavailable Encounter Details Date Type Department Care Team (Late st Contact Info) Description 10/08/2024 Telephone [facility] [address] [place] [phone] Markus Finley MD [address] [place] [address] Social History Tobacco Use Types Packs/Day Years Used Date Smoking Tobacco: Former Cigarettes 0.5 5.6 S tarted: 04/18/2016 Smokeless Tobacco: Never Alcohol Use Standard Drinks/Week Comments Not Currently 0 (1 standard drink = 0.6 oz pur e alcohol) quit 2023 [facility] Utilities Answer Date Recorded In the past 12 months has [employer], gas, oil, or water company threatened to [...] often do you attend chur ch or restoration services? Never 09/25/2024 Do you belong to [...] medical care, and heating? Somewhat hard 09/25/2024 [facility]at ional Health [...] any time in the past 12 [facility], were you homeless or living in [...] Cabrera RN - 10/11/2024 2:35 PM CST [facility] has her prescriptions ready; Chris needs to call and complete 2 new patient assessments in order to set up shipment. Called pt to make aware and pharmacy number provided. Pt knows to call with further issues. S DEPARTMENT SUPERVISOR * Addendum Note - Carmina Porras RN - 10/10/2024 10:06 AM CSTAddended by: CARMINA PORRAS on: 10/10/2024 10:06 AM Modules accepted: Orders S DEPARTMENT SUPERVISOR * Telephone Encounter - Carmina Porras RN - 10/10/2024 10:02 AM SALES DEPARTMENT SUPERVISOR Covermymeds fax received. Spoke with Liliana Rodriguez RN who stated auth fax was received from [employer] yesterday. Called and spoke with Sadi Velast. [facility] Christopher, to discuss. Per Mirian auth is approved for medication to be filled through [facility], . New auth would be needed for [facility] to refill. New rx routed to [facility]. S DEPARTMENT SUPERVISOR * Addendum Note - Liliana Cabrera RN - 10/09/2024 5:00 PM CSTAddended by: LILIANA CABRERA on: 10/09/2024 05:00 PM Modules accepted: Orders S DEPARTMENT SUPERVISOR * Telephone Encounter - Liliana Cabrera RN - 10/09/2024 4:54 PM CST Fax received for [facility] being OON for patient. Sending Braftovi/Mektovi to [facility] perfax recommendation from [facility]. RN will check status of these tomorrow, Tuesday. S DEPARTMENT SUPERVISOR * Telephone Encounter - Liliana Cabrera RN - 10/08/2024 2:58 PM CST Okay for KlorCon once daily per MD. S DEPARTMENT SUPERVISOR * Telephone Encounter - Liliana Cabrera RN [...] heard from them for shipment. Pt agreeable. S DEPARTMENT SUPERVISOR documented in this encounter Plan of Treatment Upcoming Encounters Date Type Department Care Team (Late st Contact Info) Description 11/15/2024 1:00 PM SALES DEPARTMENT SUPERVISOR Lab [facility] [address] [facility] [place] [address] Markus Finley MD [address] [place] [address] 11/15/2024 2:00 PM SALES DEPARTMENT SUPERVISOR [facility] [address] [facility] [place] [address] Markus Finley MD [address] [place] [address] Discharge Disposition: Discharged to home or Selfcare documented as of this encounter Visit Diagnoses Diagnosis Metastatic melanoma (HCC)- Primary Melanoma of skin, site unspecified documented in this encounter Care Teams Knitting Machine Operator Automatic Relationship Specialty Start Date End Date Pritesh Chu MD [address] [address] PCP - General Family Medicine 04/18/24 Markus Finley MD [address] [place] [address] Consulting Physician Medical Oncology 04/18/24 Zander Cha MD [address] [address] Consulting Physician Colon and Rectal Surgery 08/24/24 documented as of this encounter
--- OUTSIDE RECORDS SUMMARY | 2024-10-27 03:38 | XMS_ITS | Encounter Summary ---
Author Organization [id number] Care Team Providers Care Factory Engineer Name Role Phone Pritesh Chu MD Primary Care Provider [phone] Markus Finley MD Unavailable [phone] Zander Cha MD Unavailable Encounter Details Date Type Department Care Team (Latest Contact Info) Description 10/02/2024 Travel Social History Tobacco Use Types Packs/Day Years Used Date Smoking Tobacco: Former Cigarettes 0.5 5.6 S tarted: 04/18/2016 Smokeless Tobacco: Never Alcohol Use Standard Drinks/Week Comments Not Currently 0 (1 standard drink = 0.6 oz pur e alcohol) quit 2023 [facility] Utilities Answer Date Recorded In the past 12 months has [employer], gas, oil, or water [employer] threatened to shut off services in your [...] week 09/25/2024 How often do you attend [facility] or mandaeism services? Never 09/25/2024 Do you belong to [...] care, and heating? Somewhat hard 09/25/2024 [facility] Occupat ional Health - Occupational [...] Contact Info) Description 11/15/2024 1:00 PM DIRECTOR INVESTMENT BANKING [facility] [address] [place] [address] Markus Finley MD [address] [place] [address] 11/15/2024 2:00 PM DIRECTOR INVESTMENT BANKING [facility] [address] [place] [address] Markus Finley MD [address] [place] [address] Discharge Disposition: Discharged to home or Selfcare documented as of this encounter Visit Diagnoses Not on filedocumented in this encounter Care Teams Factory Engineer Relationship Specialty Start Date End Date Pritesh Chu MD [address] [place], [place] [id number] PCP - General Family Medicine 04/18/24 Markus Finley MD [address] [place] [address] Consulting Physician Medical Oncology 04/18/24 Zander Cha MD [address] [place] [address] Consulting Physician Colon and Rectal Surgery 08/24/24 documented as of this encounter
--- OUTSIDE RECORDS SUMMARY | 2024-10-27 03:38 | XMS_ITS | Encounter Summary ---
Author Organization [facility] Address [address] [place] [address] Phone Care Team Providers Care Pmo Analyst Name Role Phone Pritesh Chu MD Primary Care Provider [phone] Markus Finley MD Unavailable [phone] Zander Cha MD Unavailable Reason for Referral * Consult, Test & Initiate Treatment (Routine) - Closed Specialty Diagnoses / Procedures Referred By Contross t Referred To Contact Diagnoses Nasal discomfort Markus Finley MD [address] [place] [address] Phone: tel: fax: [facility] ENT [address] [facility] [address] [address] Phone: tel: fax: Referral ID Status Reason Start Date Expiration Date Visits Re quested Visits Authorized [id number] Closed 09/25/2024 1 1 Scheduling Instructions Dayanara [...] gap Subcutaneous nodule of left lower extremity ER PRODUCTION LINE GAS Reason for Visit * Episode Based Medications (Routine) - Closed Specialty Diagnoses / Procedures Referred By Contac t Referred To Contact Diagnoses Metastatic melanoma (HCC) Markus Finley MD [address] [place] [address] Phone: tel: fax: [facility] Oncology Services [address] [place] [address] Phone: tel: fax: Referral ID Status Reason Start Date Expiration Date Visits Re quested Visits Authorized [id number] Closed 04/19/2024 1 30 Encounter Details Date Type Department Care Team (Late st Contact Info) Description 09/25/2024 1:30 PM WELDER PRODUCTION LINE GAS Clinical Support [facility] Oncology Services [address] [place] [address] Markus Finley MD [address] [place] [address] Dehydration (Primary Dx); Metastatic melanoma (HCC); Nasal discomfort Discharge Disposition: Discharged to home or Selfcare Social History Tobacco Use Types Packs/Day Years Used Date Smoking Tobacco: Former Cigarettes 0.5 5.6 S tarted: 04/18/2016 Smokeless Tobacco: Never Alcohol Use Standard Drinks/Week Comments Not Currently 0 (1 standard drink = 0.6 oz pur e alcohol) quit 2023 [facility] Utilities Answer Date Recorded In the past 12 months has [employer], gas, oil, or water [employer] threatened to shut off services in your [...] attend chur ch or orthodoxy services? Never 09/25/2024 Do you belong to [...] medical care, and heating? Somewhat hard 09/25/2024 [facility] of Occupat ional Health - Occupational Stress [...] [place] [facility] (including now)? No 09/25/2024 Sexually Active Control [...] Comments Blood Pressure 127/87 09/25/2024 2:15 PM WELDER PRODUCTION LINE GAS Pulse 78 09/25/2024 2:15 PM WELDER PRODUCTION LINE GAS Temperature 36.4 ??C (97.5 ??F) 09/25/2024 2:15 PM CS T Respiratory Rate 16 09/25/2024 2:15 PM WELDER PRODUCTION LINE GAS Oxygen Saturation 98% 09/25/2024 2:15 PM WELDER PRODUCTION LINE GAS Inhaled Oxygen Concentration - - Weight - [...] Mary Almaguer RN - 09/25/2024 1:30 PM WELDER PRODUCTION LINE GAS Patient arrived port accessed per protocol x1 [...] Patient left treatment area in stable condition. ER PRODUCTION LINE GAS * Addendum Note - Sister Mary Cortés RN - 09/25/2024 1:30 PM CSTAddended by: SISTER Mary CORTÉS on: 09/25/2024 04:14 PM Modules accepted: Orders ER PRODUCTION LINE GAS documented in this encounter Plan of Treatment Upcoming Encounters Date Type Department Care Team (Late st Contact Info) Description 11/15/2024 1:00 PM WELDER PRODUCTION LINE GAS [facility] [address] [place] [address] Markus Finley MD [address] [place] [address] 11/15/2024 2:00 PM WELDER PRODUCTION LINE GAS [facility] [address] [place] [address] Markus Finley MD [address] [place] [address] Discharge Disposition: Discharged to home or Selfcare Scheduled Referrals Name Type Priority Associated Diagnoses Orde r Schedule EXTERNAL ENT REFERRAL Outpatient Referral Routine Nasal discomfort Expected: 09/25/2024, Expires: 09/25/2025 documented as of this encounter Procedures Procedure Name Priority Date/Time Associated Diagnosis Comments CBC WITH AUTO DIFFERENTIAL STAT 09/25/2024 2:03 PM WELDER PRODUCTION LINE GAS Metastatic melanoma (HCC) THYROID STIMULATING HORMONE (TSH) STAT 09/25/2024 2:03 PM WELDER PRODUCTION LINE GAS Metastatic melanoma (HCC) CMP (COMPREHENSIVE METABOLIC PANEL) STAT 09/25/2024 2:03 PM WELDER PRODUCTION LINE GAS Metastatic melanoma (HCC) COMPLETE BLOOD COUNT (CBC) WITH DIFF STAT 09/25/2024 2:03 PM WELDER PRODUCTION LINE GAS Metastatic melanoma (HCC) documented in this encounter Results * (ABNORMAL) CBC WITH AUTO DIFFERENTIAL (09/25/2024 2:03 PM WELDER PRODUCTION LINE GAS) WBC 8.23 4.00 - 12.00 10(3)/mcL 09/25/2024 2:12 PM WELDER PRODUCTION LINE GAS [facility] RBC 3.98 3.80 - 5.30 10(6)/mcL 09/25/2024 2:12 PM WELDER PRODUCTION LINE GAS [facility] HEMOGLOBIN (HGB) 12.8 12.0 - 15.8 g/dL 09/25/2024 2:12 PM WELDER PRODUCTION LINE GAS [facility] HEMATOCRIT (HCT) 38.6 36.0 - 47.0 % 09/25/2024 2:12 PM WELDER PRODUCTION LINE GAS [facility] MCV 97.0(H) 82.0 - 96.0 fL 09/25/2024 2:12 PM WELDER PRODUCTION LINE GAS [facility] MCH 32.2 26.0 - 34.0 pg 09/25/2024 2:12 PM WELDER PRODUCTION LINE GAS [facility] MCHC 33.2 31.0 - 36.0 g/dL 09/25/2024 2:12 PM WELDER PRODUCTION LINE GAS [facility] PLATELET COUNT 183 140 - 440 10(3)/mcL 09/25/2024 2:12 PM WELDER PRODUCTION LINE GAS [facility] RDW 14.8 11.8 - 15.5 % 09/25/2024 2:12 PM WELDER PRODUCTION LINE GAS [facility] MPV 10.1 9.7 - 12.4 fL 09/25/2024 2:12 PM WELDER PRODUCTION LINE GAS [facility] NEUTROPHILS 85.2(H) 47.0 - 73.0 % 09/25/2024 2:12 PM WELDER PRODUCTION LINE GAS [facility] LYMPHOCYTES 6.8(L) 18.0 - 42.0 % 09/25/2024 2:12 PM WELDER PRODUCTION LINE GAS [facility] MONOCYTES 7.8 4.0 - 12.0 % 09/25/2024 2:12 PM [facility] EOSINOPHILS 0.1 0.0 - 5.0 % 09/25/2024 2:12 PM [facility] BASOPHILS 0.1 0.0 - 1.0 % 09/25/2024 2:12 PM [facility] ABSOLUTE NEUTROPHILS 7.01 1.60 - 7.70 10(3)/[facility] 09/25/2024 2:12 PM [facility] ABSOLUTE LYMPHOCYTES 0.56(L) 1.30 - 3.20 10(3)/[facility] 09/25/2024 2:12 PM [facility] ABSOLUTE MONOCYTES 0.64 0.20 - 1.00 10(3)/[facility] 09/25/2024 2:12 PM [facility] ABSOLUTE EOSINOPHIL 0.01 0.00 - 0.40 10(3)/[facility] 09/25/2024 2:12 PM [facility] ABSOLUTE BASOPHILS 0.01 0.00 - 0.10 10(3)/[facility] 09/25/2024 2:12 PM [facility] NRBC PER 100 WBC 0 09/25/20 2:12 PM [facility] Blood Sub-Q Port Venou s Access Device (Medi-Port, Implanted Port) / Unknown 09/25/2024 2:03 PM WELDER PRODUCTION LINE GAS 09/25/2024 2:03 PM WELDER PRODUCTION LINE GAS Markus Finley MD HEMATOLOGY ORDERABLES Fi nal Result [facility] [address] [place] [address] * THYROID STIMULATING HORMONE (TSH) (09/25/2024 2:03 PM WELDER PRODUCTION LINE GAS) TSH 2.382 0.300 - 5.000 mIU/L 09/25/2024 2:49 PM WELDER PRODUCTION LINE GAS [facility] Blood Sub-Q Port Venou s Access Device (Medi-Port, Implanted Port) / Unknown 09/25/2024 2:03 PM WELDER PRODUCTION LINE GAS 09/25/2024 2:03 PM WELDER PRODUCTION LINE GAS Markus Finley MD CHEMISTRY ORDERABLES Fin al Result Performing Organization Address City/[facility]/ZIP Co de Phone Number [facility] #[address] [place] [address] * (ABNORMAL) CMP (COMPREHENSIVE METABOLIC PANEL) (09/25/2024 2:03 PM WELDER PRODUCTION LINE GAS) SODIUM 141 136 - 145 mmol/L 09/25/2024 2:32 PM WELDER PRODUCTION LINE GAS [facility] POTASSIUM 4.2 3.5 - 5.1 mmol/L 09/25/2024 2:32 PM WELDER PRODUCTION LINE GAS [facility] CHLORIDE 109(H) 98 - 107 mmol/L 09/25/2024 2:32 PM WELDER PRODUCTION LINE GAS [facility] CO2, VENOUS 25 22 - 30 mmol/L 09/25/2024 2:32 PM WELDER PRODUCTION LINE GAS [facility] ANION GAP 11.2 <18.0 mmol/L 09/25/2024 2:32 PM WELDER PRODUCTION LINE GAS [facility] GLUCOSE 95 70 - 99 mg/dL 09/25/2024 2:32 PM WELDER PRODUCTION LINE GAS [facility] BUN 22(H) 5 - 18 mg/dL 09/25/2024 2:32 PM WELDER PRODUCTION LINE GAS [facility] CREATININE, BLOOD 0.86 0.60 - 1.00 mg/dL 09/25/2024 2:32 PM [facility] BUN/CREATININE RATIO 26(H) 12 - 20 ratio 09/25/2024 2:32 PM [facility] TOTAL PROTEIN 6.3 6.3 - 8.2 g/dL 09/25/2024 2:32 PM [facility] ALBUMIN 4.0 3.5 - 5.0 g/dL 09/25/2024 2:32 PM [facility] A/G RATIO 1.7 1.0 - 2.2 09/25/2024 2:32 PM [facility] CALCIUM 9.0 8.7 - 10.5 mg/dL 09/25/2024 2:32 PM [facility] T BILI 0.5 0.2 - 1.2 mg/dL 09/25/2024 2:32 PM [facility] SGOT (AST) 20 5 - 34 U/L 09/25/2024 2:32 PM [facility] SGPT (ALT) 45 0 - 55 U/L 09/25/2024 2:32 PM [facility] ALKALINE PHOSPHATASE 39(L) 40 - 150 U/L 09/25/2024 2:32 PM [facility] IS THE PATIENT REQUIRED TO BE FASTING? No 09/25/2024 2:32 PM [facility] GFR, ESTIMATED >60 >=60 09/25/2024 2:32 PM [facility] Comment: Creatinine Clearance is the preferred criteria for selecting drug dose adjustments in renally impaired patients. ??The GFR is provided as additional pertinent clinical information. GFR is reported in mL/min/1.73 sq m. Calculation based on the Chronic Kidney Disease Epidemiology Collaboration (CKD- EPI) equation refit without adjustment for race. GFR, EST. >60 >=60 024 2:32 PM [facility] GFR, EST. NONAFRICAN >60 >=60 09/25/2024 2:32 PM [facility] Blood Sub-Q Port Venou s Access Device (Medi-Port, Implanted Port) / Unknown 09/25/2024 2:03 PM WELDER PRODUCTION LINE GAS 09/25/2024 2:03 PM WELDER PRODUCTION LINE GAS Markus Finley MD CHEMISTRY ORDERABLES Fin al Result [facility] [place] [address] documented in this encounter Visit Diagnoses Diagnosis [...] at 1330Indications:Dehydration New Bag 09/25/2024 1:50 PM WELDER PRODUCTION LINE GAS 1,000 mL 999 mL/hr Heparin Na (Pork) Lock Flsh PF SOLN 50 Units 50 Units, Intravenous, PRN, Starting on Tue09/25/24 at 1447, Until Tue09/25/24 at 1723, Line CareIndications:Dehydration Given 09/25/2024 3:09 PM WELDER PRODUCTION LINE GAS 50 Units documented in this encounter Care Teams Pmo Analyst Relationship Specialty Start Date End Date Pritesh Chu MD [address] [address] PCP - General Family Medicine 04/18/24 Markus Finley MD [address] [place] [address] Consulting Physician Medical Oncology 04/18/24 Zander Cha MD [address] [address] Consulting Physician Colon and Rectal Surgery 08/24/24 documented as of this encounter
--- OUTSIDE RECORDS SUMMARY | 2024-10-27 03:38 | XMS_ITS | Encounter Summary ---
Author Organization [facility] Address [address] [facility] [place] [address] Phone Care Team Providers Care Licensed Real Estate Broker Name Role Phone Pritesh Chu MD Primary Care Provider [phone] Markus Finley MD Unavailable [phone] Zander Cha MD Unavailable Reason for Visit * Reason Onset Date Comments Medication Refill 09/20/2024 Encounter Details Date Type Department Care Team (Late st Contact Info) Description 09/20/2024 Refill [facility] On[facility] [address] [place] [phone] Markus Finley MD [address] [place] [address] Medication Refill Social History Tobacco Use Types Packs/Day Years Used Date Smoking Tobacco: Former Cigarettes 0.5 5.6 S tarted: 04/18/2016 Smokeless Tobacco: Never Alcohol Use Standard Drinks/Week Comments Not Currently 0 (1 standard drink = 0.6 oz pur e alcohol) quit 2023 [facility] Utilities Answer Date Recorded In the past 12 months has th e electric, gas, oil, or water [employer] threatened to shut off services in your home? Patient declined 08/01/2024 Social Connection and Isolation Panel [NHANES] A nswer Date Recorded In a typical week, how many times do you talk on the phone with family, friends, or neighbors? Patient declined 08/01/2024 How often do you get togethe r with friends or relatives? Patient declined 08/01/2024 How often do you attend quaker or bahai serv ices? Patient declined 08/01/2024 Do you [...] Patient declined 08/01/2024 [facility] - Occupational Stress Questionnaire Answer Date [...] Contact Info) Description 11/15/2024 1:00 PM SECURITY POLICE Lab [facility] Laboratory Services 1 [facility] [address] [address] Markus Finley MD [address] [place] [address] 11/15/2024 2:00 PM SECURITY POLICE [facility]ment [facility] 1 [facility] [place] [address] Markus Finley MD [address] [place] [address] Discharge Disposition: Discharged to home or Selfcare documented as of this encounter Visit Diagnoses Not on filedocumented in this encounter Care Teams Licensed Real Estate Broker Relationship Specialty Start Date End Date Pritesh Chu MD [address] [address] PCP - General Family Medicine 04/18/24 Markus Finley MD [address] [place] [address] Consulting Physician Medical Oncology 04/18/24 Zander Cha MD [address] [address] Consulting Physician Colon and Rectal Surgery 08/24/24 documented as of this encounter
--- OUTSIDE RECORDS SUMMARY | 2024-10-27 03:39 | XMS_ITS | Encounter Summary ---
Author Organization [facility] Address [address] [facility] [place] [address] Phone Care Team Providers Care Store Director Name Role Phone Pritesh Chu MD Primary Care Provider [phone] Markus Finley MD Unavailable Zander Cha MD Unavailable Reason for Visit * Episode Based Medications (Routine) - Closed Specialty Diagnoses / Procedures Referred By Contross t Referred To Contact Diagnoses Metastatic melanoma (HCC) Markus Finley MD [address] [place] [address] Phone: tel: fax: [facility] Oncology Services [address] [place] [address] Phone: tel: fax: Referral ID Status Reason Start Date Expiration Date Visits Re quested Visits Authorized [id number] Closed 04/19/2024 1 30 Encounter Details Date Type Department Care Team (Late st Contact Info) Description 09/07/2024 11:30 AM CDT Clinical Support [facility] Oncology Services [address] [place] [id number] Markus Finley MD [address] [place] [address] Metastatic melanoma (HCC) (Primary Dx) Discharge Disposition: [...] How often do you attend bahai or nondenominational serv ices? Patient declined 08/01/2024 [...] medical care, and heating? Patient declined 08/01/2024 [place] of Occupat ional Health - Occupational Stress [...] time in the past 12 m [facility], were you homeless or living in a senior care (including now)? Patient declined 08/01/2024 Sexually Active [...] Contact Info) Description 11/15/2024 1:00 PM ASSISTANT STORE MANAGER SALES Lab [facility] Laboratory Services [address] [place] [address] Markus Finley MD [address] [place] [address] 11/15/2024 2:00 PM ASSISTANT STORE MANAGER SALES Appointment [facility] MRI 1 [facility] [place] [phone] Markus Finley MD [address] [place] [address] Discharge Disposition: Discharged to home or Selfcare [...] 12.00 10(3)/mcL 09/07/2024 12:23 PM CDT [facility] RBC 4.18 3.80 - 5.30 10(6)/mcL 09/07/2024 12:23 PM CDT [facility] HEMOGLOBIN (HGB) 12.7 12.0 - 15.8 g/dL 09/07/2024 12:23 PM CDT [facility] HEMATOCRIT (HCT) 39.1 36.0 - 47.0 % 09/07/2024 12:23 PM CDT [facility] MCV 93.5 82.0 - 96.0 fL 09/07/2024 12:23 PM CDT [facility] MCH 30.4 26.0 - 34.0 pg 09/07/2024 12:23 PM CDT [facility] MCHC 32.5 31.0 - 36.0 g/dL 09/07/2024 12:23 PM CDT [facility] PLATELET COUNT 178 140 - 440 10(3)/[facility] 09/07/2024 12:23 PM CDT [facility] RDW 14.8 11.8 - 15.5 % 09/07/2024 12:23 PM CDT [facility] MPV 9.8 9.7 - 12.4 fL 09/07/2024 12:23 PM CDT [facility] NEUTROPHILS 90.3(H) 47.0 - 73.0 % 09/07/2024 12:23 PM CDT [facility] LYMPHOCYTES 4.7(L) 18.0 - 42.0 % 09/07/2024 12:23 PM CDT [facility] MONOCYTES 4.8 4.0 - 12.0 % 09/07/2024 12:23 PM CDT [facility] EOSINOPHILS 0.1 0.0 - 5.0 % 09/07/2024 12:23 PM CDT [facility] BASOPHILS 0.1 0.0 - 1.0 % 09/07/2024 12:23 PM CDT [facility] ABSOLUTE NEUTROPHILS 8.08(H) 1.60 - 7.70 10(3)/[facility] 09/07/2024 12:23 PM CDT [facility] ABSOLUTE LYMPHOCYTES 0.42(L) 1.30 - 3.20 10(3)/[facility] 09/07/2024 12:23 PM CDT [facility] ABSOLUTE MONOCYTES 0.43 0.20 - 1.00 10(3)/[facility] 09/07/2024 12:23 PM CDT [facility] ABSOLUTE EOSINOPHIL 0.01 0.00 - 0.40 10(3)/[facility] 09/07/2024 12:23 PM CDT [facility] ABSOLUTE BASOPHILS 0.01 0.00 - 0.10 10(3)/[facility] 09/07/2024 12:23 PM CDT [facility] NRBC PER 100 WBC 0 09/07/20 12:23 PM CDT [facility] RESULTS ARE CONSISTENT WITH PERIPHERAL SMEAR REVIEW Yes 09/07/2024 12:23 PM CDT [facility] RBC MORPHOLOGY CONSISTENT WITH INDICES Yes 09/07/2024 12:23 PM CDT [facility] Blood Sub-Q Port Venou s Access Device (Medi-Port, Implanted Port) / Unknown 09/07/2024 11:55 AM CDT 09/07/2024 11:55 AM CDT Markus Finley MD HEMATOLOGY ORDERABLES Fi nal Result Performing Organization Address City/[facility]/ZIP Co de Phone Number [facility] [address] [place] [address] * THYROID STIMULATING HORMONE (TSH) (09/07/2024 11:55 AM CDT) TSH 1.777 0.300 - 5.000 mIU/L 09/07/2024 12:42 PM CDT [facility] Blood Sub-Q Port Venou s Access Device (Medi-Port, Implanted Port) / Unknown 09/07/2024 11:55 AM CDT 09/07/2024 11:55 AM CDT Markus Finley MD CHEMISTRY ORDERABLES Fin al Result Performing Organization Address City/[facility]/ZIP Co de Phone Number [facility] [address] [place] [address] * (ABNORMAL) CMP (COMPREHENSIVE METABOLIC PANEL) (09/07/2024 11:55 AM CDT) SODIUM 139 136 - 145 mmol/L 09/07/2024 12:24 PM CDT [facility] POTASSIUM 4.7 3.5 - 5.1 mmol/L 09/07/2024 12:24 PM CDT [facility] CHLORIDE 105 98 - 107 mmol/L 09/07/2024 12:24 PM CDT [facility] CO2, VENOUS 26 22 - 30 mmol/L 09/07/2024 12:24 PM CDT [facility] ANION GAP 12.7 <18.0 mmol/L 09/07/2024 12:24 PM CDT [facility] GLUCOSE 102(H) 70 - 99 mg/dL 09/07/2024 12:24 PM CDT [facility] BUN 20(H) 5 - 18 mg/dL 09/07/2024 12:24 PM CDT [facility] CREATININE, BLOOD 0.82 0.60 - 1.00 mg/dL 09/07/2024 12:24 PM CDT [facility] BUN/CREATININE RATIO 24(H) 12 - 20 ratio 09/07/2024 12:24 PM CDT [facility] TOTAL PROTEIN 6.1(L) 6.3 - 8.2 g/dL 09/07/2024 12:24 PM CDT [facility] ALBUMIN 3.9 3.5 - 5.0 g/dL 09/07/2024 12:24 PM CDT [facility] A/G RATIO 1.8 1.0 - 2.2 09/07/2024 12:24 PM CDT [facility] CALCIUM 9.2 8.7 - 10.5 mg/dL 09/07/2024 12:24 PM CDT [facility] T BILI 0.6 0.2 - 1.2 mg/dL 09/07/2024 12:24 PM CDT [facility] SGOT (AST) 12 5 - 34 U/L 09/07/2024 12:24 PM CDT [facility] SGPT (ALT) 53 0 - 55 U/L 09/07/2024 12:24 PM CDT [facility] ALKALINE PHOSPHATASE 52 40 - 150 U/L 09/07/2024 12:24 PM CDT [facility] IS THE PATIENT REQUIRED TO BE FASTING? No 09/07/2024 12:24 PM CDT [facility] GFR, ESTIMATED >60 >=60 09/07/2024 12:24 PM CDT [facility] Comment: Creatinine Clearance is the preferred criteria for selecting drug dose adjustments in renally impaired patients. ??The GFR is provided as additional pertinent clinical information. GFR is reported in mL/min/1.73 sq m. Calculation based on the Chronic Kidney Disease Epidemiology Collaboration (CKD- EPI) equation refit without adjustment for race. GFR, EST. >60 >=60 024 12:24 PM CDT [facility] GFR, EST. NONAFRICAN >60 >=60 09/07/2024 12:24 PM CDT [facility] Blood Sub-Q Port Venou s Access Device (Medi-Port, Implanted Port) / Unknown 09/07/2024 11:55 AM CDT 09/07/2024 11:55 AM CDT Markus Finley MD CHEMISTRY ORDERABLES Fin al Result [facility] [address] [place] [address] documented in this encounter Visit Diagnoses Diagnosis [...] Units documented in this encounter Care Teams Store Director Relationship Specialty Start Date End Date Pritesh Chu MD [address] [address] PCP - General Family Medicine 04/18/24 Markus Finley MD [address] [place] [address] Consulting Physician Medical Oncology 04/18/24 Zander Cha MD [address] [address] Consulting Physician Colon and Rectal Surgery 08/24/24 documented as of this encounter
--- OUTSIDE RECORDS SUMMARY | 2024-10-27 03:39 | XMS_ITS | Encounter Summary ---
Author Organization [facility] Address [address] [place] [address] Phone Care Team Providers Care Skewer Up Name Role Phone Pritesh Chu MD Primary Care Provider [phone] Markus Finley MD Unavailable [phone] Zander Cha MD Unavailable Encounter Details Date Type Department Care Team (Late st Contact Info) Description 09/07/2024 Telephone [facility] Center Oncology Services [address] [place] [phone] Markus Finley MD [address] [place] [address] Social History Tobacco Use Types Packs/Day Years Used Date Smoking Tobacco: Former Cigarettes 0.5 5.6 S tarted: 04/18/2016 Smokeless Tobacco: Never Alcohol Use Standard Drinks/Week Comments Not Currently 0 (1 standard drink = 0.6 oz pur e alcohol) quit 2023 [facility] Utilities Answer Date Recorded In the past 12 months has [employer], gas, oil, or water company threatened to [...] How often do you attend buddhist or baptism serv ices? Patient declined 08/01/2024 [...] declined 08/01/2024 [facility] - Occupational Stress Questionnaire Answer [...] st Contact Info) Description 11/15/2024 1:00 PM GLOBAL MARKETING INTERN Lab [facility] Laboratory Services 1 [place] [address] Markus Finley MD [address] [place] [address] 11/15/2024 2:00 PM GLOBAL MARKETING INTERN Appointment [facility] MRI [address] [place] [phone] Markus Finley MD [address] [place] [address] Discharge Disposition: Discharged to home or Selfcare documented as of this encounter Visit Diagnoses Not on filedocumented in this encounter Care Teams Skewer Up Relationship Specialty Start Date End Date Pritesh Chu MD [address] [place] [address] PCP - General Family Medicine 04/18/24 Markus Finley MD [address] [place] [address] Consulting Physician Medical Oncology 04/18/24 Zander Cha MD [address] [address] Consulting Physician Colon and Rectal Surgery 08/24/24 documented as of this encounter
--- OUTSIDE RECORDS SUMMARY | 2024-10-27 03:39 | XMS_ITS | Encounter Summary ---
Author Organization [facility] Address [address] [place] [address] Phone Care Team Providers Care Bessemer Converter Operator Name Role Phone Kellen Chu MD Primary Care Provider [phone] Markus Finley MD Unavailable [phone] Zander Cha MD Unavailable Reason for Visit * Reason Comments Other Metastatic melanoma; subcutaneous nodule of left lower leg * Consult, Test & Initiate Treatment (Routine) - Closed Specialty Diagnoses / Procedures Referred By Contac t Referred To Contact Diagnoses Metastatic melanoma (HCC) Markus Finley MD [address] [place] [address] Phone: tel: fax: [facility] - General Surgery [facility] #2 [facility] [address] [address] Phone: tel: fax: Referral ID Status Reason Start Date Expiration Date Visits Re quested Visits Authorized [id number] Closed 08/24/2024 1 1 Encounter Details Date Type Department Care Team (Late st Contact Info) Description 08/29/2024 1:00 PM CDT Office Visit [facility] - General [facility] - [place] [address] [phone] Markus Finley MD [address] [place] [address] Zander Cha MD [address] [facility] [address] [place] [address] Metastatic melanoma (HCC); Subcutaneous nodule of left lower extremity Discharge Disposition: Discharged to home or Selfcare Social History Tobacco Use Types Packs/Day Years Used Date Smoking Tobacco: Former Cigarettes 0.5 5.6 S tarted: 04/18/2016 Smokeless Tobacco: Never Alcohol Use Standard Drinks/Week Comments Not Currently 0 (1 standard drink = 0.6 oz pur e alcohol) quit 2023 [facility] [employer] Answer Date Recorded In the past 12 months has [employer], gas, oil, or water [employer] threatened to shut off services in your [...] often do you attend latter day or anglican serv ices? Patient declined 08/01/2024 [...] Patient declined 08/01/2024 [facility] - [...] melanoma excision with STSG SKIN GRAFT 08/25/2023 [place] node biopsy at the same time as [...] Session: Patient declined Stress: Patient Declined (08/01/2024) [facility] - Occupational Stress Questionnaire Feeling of Stress : Patient declined Recent Concern: Stress - Stress Concern Present (06/27/2024) [facility] - Occupational Stress Questionnaire Feeling of Stress : To some extent Social Integration: Patient Declined (08/01/2024) Social Connection and Isolation Panel [NHANES] Frequency of Communication with Friends and Family: Patient declined Frequency of Social Gatherings with Friends and Family: Patient declined Attends Mosque Services: Patient declined Active Member of Clubs [...] More than three times a week Attends Mosque Services: Never Active Member of Clubs or [...] PAINTER ERWIN Brand Cecile 2000 Patient ID ([facility]) [id number] Indications: Pericardial effusion. Study Date07/26/2024 Technical quality: [...] lbs. BMI (BSA) 41.58 kg/m^2 (2.23 m^2) Otolaryngology Surgeon Bayron Bruno R Room [address] [facility] Referring Physician Silvio Physician Isabel Diaz No [...] stated above. This note was dictated using [employer] dictation system and there may be errors in asphalt plant worker. Despite proof reading the note, there may be mistakes and I apologize for those. By: Zander Cha MD, 08/29/2024, 2:16 PM CDT Primary Care Physician: KELLEN CHU MD documented in this encounter Plan of Treatment Upcoming Encounters Date Type Department Care Team (Late st Contact Info) Description 11/15/2024 1:00 PM AERIAL ERECTOR [facility] 1 [facility] [place] [address] Markus Finley MD [address] [place] [address] 11/15/2024 2:00 PM AERIAL ERECTOR [facility]ment [facility] [address] [place] [address] Markus Finley MD [address] [place] [address] Discharge Disposition: Discharged to home or Selfcare documented as of this encounter Visit Diagnoses Diagnosis Metastatic melanoma (HCC) Melanoma of skin, site unspecified Subcutaneous nodule of left lower extremity documented in this encounter Care Teams Bessemer Converter Operator Relationship Specialty Start Date End Date Kellen Chu MD [address] [place] [address] PCP - General Family Medicine 04/18/24 Markus Finley MD [address] [place] [address] Consulting Physician Medical Oncology 04/18/24 Zander Cha MD #[address] [address] Consulting Physician Colon and Rectal Surgery 08/24/24 documented as of this encounter
--- OUTSIDE RECORDS SUMMARY | 2024-10-27 03:39 | XMS_ITS | Encounter Summary ---
Author Organization [employer] Care Team Providers Care Table Hand Name Role Phone Pritesh Chu MD Primary Care Provider [phone] Markus Finley MD Unavailable Zander Cha MD [...] Recorded In the past 12 months has [employer], gas, oil, or water [employer] threatened to shut off services in [...] How often do you attend sabianist or baptist serv ices? Patient declined 08/01/2024 Do you [...] heating? Patient declined 08/01/2024 [facility] - Occupational Stress Questionnaire Answer Date [...] st Contact Info) Description 11/15/2024 1:00 PM SHELF DRIER OPERATOR [facility] 1 [place] [address] Markus Finley MD [address] [place] [address] 11/15/2024 2:00 PM SHELF DRIER OPERATOR [facility]ment [facility] 1 [place] [address] Markus Finley MD [address] [place] [address] Discharge Disposition: Discharged to home or Selfcare documented as of this encounter Visit Diagnoses Not on filedocumented in this encounter Care Teams Table Hand Relationship Specialty Start Date End Date Pritesh Chu MD [address] [place], [place] [phone] PCP - General Family Medicine 04/18/24 Markus Finley MD [address] [place] [address] Consulting Physician Medical Oncology 04/18/24 Zander Cha MD [address] [place] [address] Consulting Physician Colon and Rectal Surgery 08/24/24 documented as of this encounter
--- OUTSIDE RECORDS SUMMARY | 2024-10-27 03:39 | XMS_ITS | Encounter Summary ---
Author Organization [employer] Care Team Providers Care Music Theory Teacher Name Role Phone Pritesh Chu MD Primary Care Provider [phone] Markus Finley MD Unavailable [phone] Zander Cha MD Unavailable Encounter Details Date Type Department Care Team (Latest Contact Info) Description 08/29/2024 Travel Social History Tobacco Use Types Packs/Day Years Used Date Smoking Tobacco: Former Cigarettes 0.5 5.6 S tarted: 04/18/2016 Smokeless Tobacco: Never Alcohol Use Standard Drinks/Week Comments Not Currently 0 (1 standard drink = 0.6 oz pur e alcohol) quit 2023 [facility] Utilities Answer Date Recorded In the past 12 months has [employer], gas, oil, or water [employer] threatened to shut off services in your home? Patient declined 08/01/2024 Social Connection and Isolation Panel [NHANES] A nswer Date Recorded In a typical week, how many times do you talk on the phone with family, friends, or neighbors? Patient declined 08/01/2024 How often do you get togethe r with friends or relatives? Patient declined 08/01/2024 How often do you attend taoism or gnosticism serv ices? Patient declined 08/01/2024 [...] heating? Patient declined 08/01/2024 [facility] - Occupational Stress Questionnaire Answer [...] st Contact Info) Description 11/15/2024 1:00 PM PIPELINE SYSTEMS OPERATOR [facility] [address] [place] [address] Markus Finley MD [address] [place] [address] 11/15/2024 2:00 PM PIPELINE SYSTEMS OPERATOR [facility] [address] [place] [address] Markus Finley MD [address] [place] [address] Discharge Disposition: Discharged to home or Selfcare documented as of this encounter Visit Diagnoses Not on filedocumented in this encounter Care Teams Music Theory Teacher Relationship Specialty Start Date End Date Pritesh Chu MD [address] [place], [place] [phone] PCP - General Family Medicine 04/18/24 Markus Finley MD [address] [place] [address] Consulting Physician Medical Oncology 04/18/24 Zander Cha MD [address] [place] [address] Consulting Physician Colon and Rectal Surgery 08/24/24 documented as of this encounter
--- OUTSIDE RECORDS SUMMARY | 2024-10-27 03:39 | XMS_ITS | Encounter Summary ---
Author Organization [employer] Care Team Providers Care Heel Seat Filler Name Role Phone Pritesh Chu MD Primary Care Provider [phone] Markus Finley MD Unavailable [phone] Zander Cha MD Unavailable Encounter Details Date Type Department Care Team (Latest Contact Info) Description 09/07/2024 Travel Social History Tobacco Use Types Packs/Day Years Used Date Smoking Tobacco: Former Cigarettes 0.5 5.6 S tarted: 04/18/2016 Smokeless Tobacco: Never Alcohol Use Standard Drinks/Week Comments Not Currently 0 (1 standard drink = 0.6 oz pur e alcohol) quit 2023 [facility] Utilities Answer Date Recorded In the past 12 months has [employer], gas, oil, or water [employer] threatened to shut off services in your home? Patient declined 08/01/2024 Social Connection and Isolation Panel [NHANES] A nswer Date Recorded In a typical week, how many times do you talk on the phone with family, friends, or neighbors? Patient declined 08/01/2024 How often do you get togethe r with friends or relatives? Patient declined 08/01/2024 How often do you attend advent or orthodox serv ices? Patient declined 08/01/2024 [...] declined 08/01/2024 [facility] - Occupational Stress Questionnaire Answer [...] a fci (including now)? Patient declined 08/01/2024 Sexually Active [...] st Contact Info) Description 11/15/2024 1:00 PM ASSOCIATION EXECUTIVE [facility] 1 [place] [address] Markus Finley MD [address] [place] [address] 11/15/2024 2:00 PM ASSOCIATION EXECUTIVE [facility]ointment [facility] 1 [place] [address] Markus Finley MD [address] [place] [address] Discharge Disposition: Discharged to home or Selfcare documented as of this encounter Visit Diagnoses Not on filedocumented in this encounter Care Teams Heel Seat Filler Relationship Specialty Start Date End Date Pritesh Chu MD [address] [place], [place] [phone] PCP - General Family Medicine 04/18/24 Markus Finley MD [address] [place] [address] Consulting Physician Medical Oncology 04/18/24 Zander Cha MD [address] [place] [address] Consulting Physician Colon and Rectal Surgery 08/24/24 documented as of this encounter
--- OUTSIDE RECORDS SUMMARY | 2024-10-27 03:39 | XMS_ITS | Encounter Summary ---
Author Organization [facility] Address [address] [place] [address] Phone Care Team Providers Care Warp Changer Name Role Phone Pritesh Chu MD Primary Care Provider [phone] Markus Finley MD Unavailable [phone] Zander Cha MD Unavailable Reason for Visit * Reason Onset Date Comments Medication Refill 08/28/2024 Encounter Details Date Type Department Care Team (Late st Contact Info) Description 08/28/2024 Refill [facility] - Cancer Center Oncology Services [address] [place] [phone] Markus Finley MD [address] [place] [address] Medication Refill Social History Tobacco Use Types [...] How often do you attend quaker or episcopal serv ices? Patient declined 08/01/2024 [...] heating? Patient declined 08/01/2024 [facility] - Occupational Stress Questionnaire Answer [...] st Contact Info) Description 11/15/2024 1:00 PM INTEGRATION AIDE [facility] 1 [place] [address] Markus Finley MD [address] [place] [address] 11/15/2024 2:00 PM INTEGRATION AIDE [facility]ointment [facility] [address] [place] [address] Markus Finley MD [address] [place] [address] Discharge Disposition: Discharged to home or Selfcare documented as of this encounter Visit Diagnoses Diagnosis Metastatic melanoma (HCC) Melanoma of skin, site unspecified documented in this encounter Care Teams Warp Changer Relationship Specialty Start Date End Date Pritesh Chu MD [address] [address] PCP - General Family Medicine 04/18/24 Markus Finley MD [address] [place] [address] Consulting Physician Medical Oncology 04/18/24 aZnder Cha MD [address] [address] Consulting Physician Colon and Rectal Surgery 08/24/24 documented as of this encounter
--- OUTSIDE RECORDS SUMMARY | 2024-10-27 03:39 | XMS_ITS | Encounter Summary ---
Author Organization [facility] Address [address] [place] [address] Phone Care Team Providers Care Counseling Center Director Name Role Phone Pritesh Chu MD Primary Care Provider [phone] Markus Finley MD Unavailable [phone] Zander Cha MD Unavailable Encounter Details Date Type Department Care Team (Late st Contact Info) Description 08/27/2024 Telephone [facility] Oncology Services [address] [place] [phone] Markus Finley MD [address] [place] [address] Social History Tobacco Use Types Packs/Day Years Used Date Smoking Tobacco: Former Cigarettes 0.5 8.5 S tarted: 04/18/2016 Smokeless Tobacco: Never Alcohol Use Standard Drinks/Week Comments Yes 0 (1 standard drink = 0.6 oz pur e alcohol) [facility] Utilities Answer Date Recorded In the past 12 months has [employer], gas, oil, or water company threatened to [...] How often do you attend zoroastrian or scientologist serv ices? Patient declined 08/01/2024 [...] heating? Patient declined 08/01/2024 [facility] [...] any time in the past 12 m [facility], were you homeless or living [...] Contact Info) Description 11/15/2024 1:00 PM RESOLUTION REP Lab [facility] Laboratory Services 1 [place] [address] Markus Finley MD [address] [place] [address] 11/15/2024 2:00 PM RESOLUTION REP Appointment [facility] MRI [address] [place] [phone] Markus Finley MD [address] [place] [address] Discharge Disposition: Discharged to home or Selfcare documented as of this encounter Visit Diagnoses Not on filedocumented in this encounter Care Teams Counseling Center Director Relationship Specialty Start Date End Date Pritesh Chu MD [address] [place] [address] PCP - General Family Medicine 04/18/24 Markus Finley MD [address] [place] [address] Consulting Physician Medical Oncology 04/18/24 Zander Cha MD #[address] [address] Consulting Physician Colon and Rectal Surgery 08/24/24 documented as of this encounter
--- OUTSIDE RECORDS SUMMARY | 2024-10-27 03:39 | XMS_ITS | Encounter Summary ---
Author Organization [employer] Care Team Providers Care Jalousie Installer Name Role Phone Pritesh Chu MD Primary Care Provider [phone] Markus Finley MD Unavailable [phone] Zander Cha MD Unavailable Encounter Details Date Type Department Care Team (Latest Contact Info) Description 08/24/2024 Travel Social History Tobacco Use Types Packs/Day Years Used Date Smoking Tobacco: Former Cigarettes 0.5 8.5 S tarted: 04/18/2016 Smokeless Tobacco: Never Alcohol Use Standard Drinks/Week Comments Yes 0 (1 standard drink = 0.6 oz pur e alcohol) [facility] Utilities Answer Date Recorded In the past 12 months has [employer], gas, oil, or water [employer] threatened to shut off services in your home? Patient declined 08/01/2024 Social Connection and Isolation Panel [NHANES] A nswer Date Recorded In a typical week, how many times do you talk on the phone with family, friends, or neighbors? Patient declined 08/01/2024 How often do you get togethe r with friends or relatives? Patient declined 08/01/2024 How often do you attend gnosticist or sikh serv ices? Patient declined 08/01/2024 [...] medical care, and heating? Patient declined 08/01/2024 [facility] - Occupational Stress Questionnaire Answer [...] Contact Info) Description 11/15/2024 1:00 PM VAT OPERATOR Lab [facility] [address] [place] [address] Markus Finley MD [address] [place] [address] 11/15/2024 2:00 PM VAT OPERATOR [facility]ment [facility] 1 [place] [address] Markus Finley MD [address] [place] [address] Discharge Disposition: Discharged to home or Selfcare documented as of this encounter Visit Diagnoses Not on filedocumented in this encounter Additional Health Concerns Infection Onset Date Last Indicated Resolved Time C. difficile Rule-Out 08/24/2024 08/24/20242023 1:42 PM CDT documented as of this encounter Care Teams Jalousie Installer Relationship Specialty Start Date End Date Pritesh Chu MD [address] [place] [address] PCP - General Family Medicine 04/18/24 Markus Finley MD [address] [place] [address] Consulting Physician Medical Oncology 04/18/24 Zander Cha MD #[address] [address] Consulting Physician Colon and Rectal Surgery 08/24/24 documented as of this encounter
--- OUTSIDE RECORDS SUMMARY | 2024-10-27 03:39 | XMS_ITS | Encounter Summary ---
Author Organization [facility] Address [address] [facility] [place] [address] Phone Care Team Providers Care Concrete Engineering Technician Name Role Phone Pritesh Chu MD Primary Care Provider [phone] Markus Finley MD Unavailable [phone] Encounter Details Date Type Department Care Team (Late st Contact Info) Description 08/20/2024 1:40 PM CDT Clinical Support [facility] Oncology Services [address] [place] [phone] Markus Finley MD [address] [place] [address] Metastatic melanoma (HCC) (Primary Dx) Discharge Disposition: Discharged to home or Selfcare Social History Tobacco Use Types Packs/Day Years Used Date Smoking Tobacco: Former Cigarettes 0.5 8.5 S tarted: 04/18/2016 Smokeless Tobacco: Never Alcohol Use Standard Drinks/Week Comments Yes 0 (1 standard drink = 0.6 oz pur e alcohol) [facility] Utilities Answer Date Recorded In the past 12 months has [employer], gas, oil, or water [employer] threatened to shut off services in your home? Patient declined 08/01/2024 Social Connection and Isolation Panel [NHANES] A nswer Date Recorded In a typical week, how many times do you talk on the phone with family, friends, or neighbors? Patient declined 08/01/2024 How often do you get togethe r with friends or relatives? Patient declined 08/01/2024 How often do you attend mormon or mandaeism serv ices? Patient declined 08/01/2024 [...] st Contact Info) Description 11/15/2024 1:00 PM BORING AND FILLING MACHINE OPERATOR Lab [facility] Laboratory Services [address] [place] [address] Markus Finley MD [address] [place] [address] 11/15/2024 2:00 PM BORING AND FILLING MACHINE OPERATOR Appointment [facility] MRI [address] [facility] [place] [phone] Markus Finley MD [address] [place] [address] Discharge Disposition: Discharged to home or Selfcare [...] 12.00 10(3)/mcL 08/20/2024 2:54 PM CDT [facility] RBC 4.11 3.80 - 5.30 10(6)/mcL 08/20/2024 2:54 PM CDT [facility] HEMOGLOBIN (HGB) 12.3 12.0 - 15.8 g/dL 08/20/2024 2:54 PM CDT [facility] HEMATOCRIT (HCT) 36.7 36.0 - 47.0 % 08/20/2024 2:54 PM CDT [facility] MCV 89.3 82.0 - 96.0 fL 08/20/2024 2:54 PM CDT [facility] MCH 29.9 26.0 - 34.0 pg 08/20/2024 2:54 PM CDT [facility] MCHC 33.5 31.0 - 36.0 g/dL 08/20/2024 2:54 PM CDT [facility] PLATELET COUNT 263 140 - 440 10(3)/[facility] 08/20/2024 2:54 PM CDT [facility] RDW 14.5 11.8 - 15.5 % 08/20/2024 2:54 PM CDT [facility] MPV 9.6(L) 9.7 - 12.4 fL 08/20/2024 2:54 PM CDT [facility] NEUTROPHILS 90.0(H) 47.0 - 73.0 % 08/20/2024 2:54 PM CDT [facility] LYMPHOCYTES 5.8(L) 18.0 - 42.0 % 08/20/2024 2:54 PM CDT [facility] MONOCYTES 4.2 4.0 - 12.0 % 08/20/2024 2:54 PM CDT [facility] EOSINOPHILS 0.0 0.0 - 5.0 % 08/20/2024 2:54 PM CDT [facility] BASOPHILS 0.0 0.0 - 1.0 % 08/20/2024 2:54 PM CDT [facility] ABSOLUTE NEUTROPHILS 4.98 1.60 - 7.70 10(3)/[facility] 08/20/2024 2:54 PM CDT [facility] ABSOLUTE LYMPHOCYTES 0.32(L) 1.30 - 3.20 10(3)/[facility] 08/20/2024 2:54 PM CDT [facility] ABSOLUTE MONOCYTES 0.23 0.20 - 1.00 10(3)/[facility] 08/20/2024 2:54 PM CDT [facility] ABSOLUTE EOSINOPHIL 0.00 0.00 - 0.40 10(3)/[facility] 08/20/2024 2:54 PM CDT [facility] ABSOLUTE BASOPHILS 0.00 0.00 - 0.10 10(3)/[facility] 08/20/2024 2:54 PM CDT [facility] NRBC PER 100 WBC 0 08/20/20 2:54 PM CDT [facility] Blood Venipuncture / Unknown 08/20/2024 2:00 PM CDT 08/20/2024 2:02 PM CDT us Markus Finley MD HEMATOLOGY ORDERABLES Fi nal Result [facility] #[address] [place] [address] * (ABNORMAL) CMP (COMPREHENSIVE METABOLIC PANEL) (08/20/2024 2:00 PM CDT) SODIUM 133(L) 136 - 145 mmol/L 08/20/2024 2:59 PM CDT [facility] POTASSIUM 4.3 3.5 - 5.1 mmol/L 08/20/2024 2:59 PM CDT [facility] CHLORIDE 106 98 - 107 mmol/L 08/20/2024 2:59 PM CDT [facility] CO2, VENOUS 18(L) 22 - 30 mmol/L 08/20/2024 2:59 PM CDT [facility] ANION GAP 13.3 <18.0 mmol/L 08/20/2024 2:59 PM CDT [facility] GLUCOSE 121(H) 70 - 99 mg/dL 08/20/2024 2:59 PM CDT [facility] BUN 18 5 - 18 mg/dL 08/20/2024 2:59 PM CDT [facility] CREATININE, BLOOD 0.87 0.60 - 1.00 mg/dL 08/20/2024 2:59 PM CDT [facility] BUN/CREATININE RATIO 21(H) 12 - 20 ratio 08/20/2024 2:59 PM CDT [facility] TOTAL PROTEIN 6.0(L) 6.3 - 8.2 g/dL 08/20/2024 2:59 PM CDT [facility] ALBUMIN 3.7 3.5 - 5.0 g/dL 08/20/2024 2:59 PM CDT [facility] A/G RATIO 1.6 1.0 - 2.2 08/20/2024 2:59 PM CDT [facility] CALCIUM 8.9 8.7 - 10.5 mg/dL 08/20/2024 2:59 PM CDT [facility] T BILI 0.4 0.2 - 1.2 mg/dL 08/20/2024 2:59 PM CDT [facility] SGOT (AST) 13 5 - 34 U/L 08/20/2024 2:59 PM CDT [facility] SGPT (ALT) 43 0 - 55 U/L 08/20/2024 2:59 PM CDT [facility] ALKALINE PHOSPHATASE 64 40 - 150 U/L 08/20/2024 2:59 PM CDT [facility] IS THE PATIENT REQUIRED TO BE FASTING? No 08/20/2024 2:59 PM CDT [facility] GFR, ESTIMATED >60 >=60 08/20/2024 2:59 PM CDT [facility] Comment: Creatinine Clearance is the preferred criteria for selecting drug dose adjustments in renally impaired patients. ??The GFR is provided as additional pertinent clinical information. GFR is reported in mL/min/1.73 sq m. Calculation based on the Chronic Kidney Disease Epidemiology Collaboration (CKD- EPI) equation refit without adjustment for race. GFR, EST. >60 >=60 024 2:59 PM CDT [facility] GFR, EST. NONAFRICAN >60 >=60 08/20/2024 2:59 PM CDT [facility] Blood Venipuncture / Unknown 08/20/2024 2:00 PM CDT 08/20/2024 2:02 PM CDT Markus Finley MD CHEMISTRY ORDERABLES Fin al Result [facility] [address] [place] [address] documented in this encounter Visit Diagnoses Diagnosis [...] Units documented in this encounter Care Teams Concrete Engineering Technician Relationship Specialty Start Date End Date Pritesh Chu MD [address] [address] PCP - General Family Medicine 04/18/24 Markus Finley MD [address] [place] [address] Consulting Physician Medical Oncology 04/18/24 documented as of this encounter
--- OUTSIDE RECORDS SUMMARY | 2024-10-27 03:39 | XMS_ITS | Encounter Summary ---
Author Organization [facility] Address [address] [place] [address] Phone Care Team Providers Care Assault Boat Coxswain Name Role Phone Pritesh Chu MD Primary Care Provider [phone] Markus Finley MD Unavailable [phone] Zander Cha MD Unavailable Reason for Visit * Reason Comments Procedure Skin Lesion Remove lesion from l eft calf Encounter Details Date Type Department Care Team (Late st Contact Info) Description 09/04/2024 11:15 AM CDT Procedure [facility] - [facility] - [place] [address] [address] Zander Cha MD #[address] [address] Metastatic melanoma (HCC) (Primary Dx); Subcutaneous nodule of left lower extremity Discharge Disposition: Discharged to home or Selfcare Social History Tobacco Use Types Packs/Day Years Used Date Smoking Tobacco: Former Cigarettes 0.5 5.6 S tarted: 04/18/2016 Smokeless Tobacco: Never Tobacco Cessation:Counseling Given: Not Answered Alcohol Use Standard Drinks/Week Comments Not Currently 0 (1 standard drink = 0.6 oz pur e alcohol) quit 2023 [facility] Utilities Answer Date Recorded In [...] How often do you attend mandaen or scientologist serv ices? Patient declined 08/01/2024 [...] declined 08/01/2024 [facility] - [...] a detention (including now)? Patient declined 08/01/2024 Sexually Active [...] than 2 cm. Surgeon: Zander Cha MD Transfusion Nurse: eDbo Bush RN Anesthesia: 3 cc 1% lidocaine [...] st Contact Info) Description 11/15/2024 1:00 PM MEDICAL ASSISTANT FLOAT [facility] [address] [place] [address] Markus Finley MD [address] [place] [address] 11/15/2024 2:00 PM MEDICAL ASSISTANT FLOAT [facility]ment [facility] [address] [place] [address] Markus Finley MD [address] [place] [address] Discharge Disposition: Discharged to home or Selfcare [...] 09/04/2024 01:02 PM ? Ordering Location: ? [facility] - ?Received: ?09/04/2024 01:03 PM ? General Surgery - Rodrí[place] ? Pathologist: ? Romelia Horn MD PhD ? Specimen: ?Leg, Excision of skin lesion from left lower leg ? 09/06/2024 8:29 AM CDT [facility] FINAL DIAGNOSIS Skin, left lower leg, lesion, excision: - Consistent with metastatic melanoma, 4 mm - Sufficient tumor cells present for molecular studies if clinically indicated 09/06/2024 8:29 AM [facility] Comment A round nodular tumor is present in the dermis. The tumor cells are large epithelioid with large pleomorphic nuclei and prominent nucleoli. There are scant pigments suggesting melanin. 09/06/2024 8:29 AM CDT [facility] Pre-Operative Diagnosis Excision of skin lesion from left lower leg 09/06/2024 8:29 AM [facility] Gross Description A. Excision of skin [...] Cha MD PATHOLOGY/CYTOLOGY ORDERABLES Fi nal Result [facility] #[address] [place] [address] * EXC SKIN MALIG 0.6-1CM TRUNK,ARM,LEG (09/04/2024 [...] 2 cm. ?? Surgeon: Zander Cha MD Transfusion Nurse: Debo Bush RN Anesthesia: ??3 cc 1% [...] Action Date Dose Rate Site lidocaine-EPINEPHrine 1 %-1:[id number] injection 3 mL 3 mL, Injection, ONCE, 1 dose, On Tue09/04/24 at 1230Indications:Metastatic melanoma (HCC) Given 09/04/2024 11:51 AM CDT 3 mL documented in this encounter Care Teams Assault Boat Coxswain Relationship Specialty Start Date End Date Pritesh Chu MD [address] [place] [address] PCP - General Family Medicine 04/18/24 Markus Finley MD [address] [place] [address] Consulting Physician Medical Oncology 04/18/24 Zander Cha MD #[address] [address] Consulting Physician Colon and Rectal Surgery 08/24/24 documented as of this encounter
--- OUTSIDE RECORDS SUMMARY | 2024-10-27 03:39 | XMS_ITS | Encounter Summary ---
Author Organization [facility] Address [address] [facility] [address] Phone Care Team Providers Care Ice Cream Freezer Assistant Name Role Phone Pritesh Chu MD Primary Care Provider [phone] Markus Finley MD Unavailable [phone] Zander Cha MD Unavailable Reason for Visit * Reason Comments Medication Refill Encounter Details Date Type Department Care Team (Late st Contact Info) Description 09/10/2024 Refill [facility] Oncology Services [address] [place] [phone] Markus Finley MD [address] [place] [address] Medication Refill Social History Tobacco Use Types Packs/Day Years Used Date Smoking Tobacco: Former Cigarettes 0.5 5.6 S tarted: 04/18/2016 Smokeless Tobacco: Never Alcohol Use Standard Drinks/Week Comments Not Currently 0 (1 standard drink = 0.6 oz pur e alcohol) quit 2023 [facility] Utilities Answer Date Recorded In the past 12 months has [employer], oil, or [employer] threatened to shut off services in your home? Patient declined 08/01/2024 Social Connection and Isolation Panel [NHANES] A nswer Date Recorded In a typical week, how many times do you talk on the phone with family, friends, or neighbors? Patient declined 08/01/2024 How often do you get togethe r with friends or relatives? Patient declined 08/01/2024 How often do you attend rastafari or adventism serv ices? Patient declined 08/01/2024 [...] Patient declined 08/01/2024 [facility] - [facility] [...] Marie Barclay RN - 09/10/2024 11:09 AM MARKETING AND PROMOTIONS MANAGER Potassium refilled per provider will decrease to 40meq daily as lst Potassium level on 09/07 was 4.7patient next follow up scheduled for 09/11/24. ETING AND PROMOTIONS MANAGER documented in this encounter Plan of Treatment Upcoming Encounters Date Type Department Care Team (Late st Contact Info) Description 11/15/2024 1:00 PM MARKETING AND PROMOTIONS MANAGER Lab [facility] Laboratory Services [address] [place] [address] Markus Finley MD [address] [place] [address] 11/15/2024 2:00 PM MARKETING AND PROMOTIONS MANAGER Appointment [facility] MRI [address] [place] [address] Markus Finley MD [address] [place] [address] Discharge Disposition: Discharged to home or Selfcare documented as of this encounter Visit Diagnoses Not on filedocumented in this encounter Care Teams Ice Cream Freezer Assistant Relationship Specialty Start Date End Date Pritesh Chu MD [address] [place] [address] PCP - General Family Medicine 04/18/24 Markus Finley MD [address] [place] [address] Consulting Physician Medical Oncology 04/18/24 Zander Cha MD [address] [address] Consulting Physician Colon and Rectal Surgery 08/24/24 documented as of this encounter
--- OUTSIDE RECORDS SUMMARY | 2024-10-27 03:39 | XMS_ITS | Encounter Summary ---
Author Organization [facility] Address [address] [facility] [place] [address] Phone Care Team Providers Care Talent Assistant Name Role Phone Pritesh Chu MD Primary Care Provider [phone] Markus Finley MD Unavailable [phone] Reason for Visit * Episode Based Medications (Routine) - Closed Specialty Diagnoses / Procedures Referred By Contross t Referred To Contact Diagnoses Metastatic melanoma (HCC) Markus Finley MD [address] [place] [address] Phone: tel: fax: [facility] Oncology Services [address] [place] [address] Phone: tel: fax: Referral ID Status Reason Start Date Expiration Date Visits Re quested Visits Authorized [id number] Closed 04/19/2024 1 30 Encounter Details Date Type Department Care Team (Late st Contact Info) Description 08/22/2024 11:30 AM CDT Clinical Support [facility] Oncology Services [address] [place] [address] Anthony Eckert MD [address] [place], [place] [phone] Markus Finley MD [address] [place] [address] Diarrhea due to drug (Primary Dx); Metastatic melanoma (HCC) Discharge Disposition: Discharged to home or Selfcare Social History Tobacco Use Types Packs/Day Years Used Date Smoking Tobacco: Former Cigarettes 0.5 8.5 S tarted: 04/18/2016 Smokeless Tobacco: Never Alcohol Use Standard Drinks/Week Comments Yes 0 (1 standard drink = 0.6 oz pur e alcohol) [facility] Utilities Answer Date Recorded In the past 12 months has e [employer], gas, oil, or water [employer] threatened to shut off services in your home? Patient declined 08/01/2024 Social Connection and Isolation Panel [NHANES] A nswer Date Recorded In a typical week, how many times do you talk on the phone with family, friends, or neighbors? Patient declined 08/01/2024 How often do you get togethe r with friends or relatives? Patient declined 08/01/2024 How often do you attend anabaptist or mormon serv ices? Patient declined 08/01/2024 [...] medical care, and heating? Patient declined 08/01/2024 [facility] of Occupat ional [facility] - Occupational Stress Questionnaire Answer Date Recorded [...] loose/watery stools, has not been able to picker packer Colestipol r/t insurance. Port accessed per policy, [...] st Contact Info) Description 11/15/2024 1:00 PM POLICE JUDGE Lab [facility] [address] [place] [address] Markus Finley MD [address] [place] [address] 11/15/2024 2:00 PM POLICE JUDGE [facility]ointment [facility] [address] [place] [address] Markus Finley MD [address] [place] [address] Discharge Disposition: Discharged to home or Selfcare [...] Units documented in this encounter Care Teams Talent Assistant Relationship Specialty Start Date End Date Pritesh Chu MD [address] [address] PCP - General Family Medicine 04/18/24 Markus Finley MD [address] [place] [address] Consulting Physician Medical Oncology 04/18/24 documented as of this encounter
--- OUTSIDE RECORDS SUMMARY | 2024-10-27 03:39 | XMS_ITS | Encounter Summary ---
Author Organization [facility] Address [address] [facility] [place] [address] Phone Care Team Providers Care Letter Carrier Name Role Phone Pritesh Chu MD Primary Care Provider [phone] Markus Finley MD Unavailable [phone] Zander Cha MD Unavailable Encounter Details Date Type Department Care Team (Late st Contact Info) Description 09/11/2024 1:40 PM BINDER STRIPPER MACHINE [facility] [address] [place] [phone] Markus Finley MD [address] [place] [address] Discharge Disposition: Discharged to home or Selfcare Social History Tobacco Use Types Packs/Day Years Used Date Smoking Tobacco: Former Cigarettes 0.5 5.6 S tarted: 04/18/2016 Smokeless Tobacco: Never Tobacco Cessation:Counseling Given: Not Answered Alcohol Use Standard Drinks/Week Comments Not Currently 0 (1 standard drink = 0.6 oz pur e alcohol) quit 2023 [facility] Utilities Answer Date Recorded In the past 12 months has th e electric, gas, oil, or water [employer] threatened to shut off services in your home? Patient declined 08/01/2024 Social Connection and Isolation Panel [NHANES] A nswer Date Recorded In a typical week, how many times do you talk on the phone with family, friends, or neighbors? Patient declined 08/01/2024 How often do you get togethe r with friends or relatives? Patient declined 08/01/2024 How often do you attend evangelical or zoroastrian serv ices? Patient declined 08/01/2024 [...] [facility] Occup[facility] ional [facility] - Occupational Stress Questionnaire Answer Date [...] Comments Blood Pressure 131/90 09/11/2024 2:01 PM BINDER STRIPPER MACHINE Pulse 83 09/11/2024 2:01 PM BINDER STRIPPER MACHINE Temperature 36.6 ??C (97.8 ??F) 09/11/2024 2:01 PM CS T Respiratory Rate 18 09/11/2024 2:01 PM BINDER STRIPPER MACHINE Oxygen Saturation 98% 09/11/2024 2:01 PM BINDER STRIPPER MACHINE Inhaled Oxygen Concentration - - Weight 114.2 kg (251 lb 12.8 oz) 09/11/2024 2:01 PM BINDER STRIPPER MACHINE Height 167.6 cm (5' 6 ) 09/11/2024 2:01 PM BINDER STRIPPER MACHINE Body Mass Index 40.64 09/11/2024 2:01 PM BINDER STRIPPER MACHINE documented in this encounter Progress Notes * [...] received on 07/17/24. Patient was admitted to [facility] from 07/25/24through 07/30/24 and 08/02/24 [...] on 08/10/24. 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 No [...] for Markus Moses MD. 09/11/2024, 2:12 PM BINDER STRIPPER MACHINE ER STRIPPER MACHINE documented in this encounter Miscellaneous Notes * Interdisciplinary - Sandra Mcclelland - 09/11/2024 1:40 PM CST Patient reports no complaints. Pain score is 0. ER STRIPPER MACHINE * Interdisciplinary - Sandra Mcclelland - 09/11/2024 1:40 PM CST AVS declined. Patient will follow up in 3 weeks. ER STRIPPER MACHINE documented in this encounter Plan of Treatment Upcoming Encounters Date Type Department Care Team (Late st Contact Info) Description 11/15/2024 1:00 PM BINDER STRIPPER MACHINE Lab [facility] Laboratory Services [address] [place] [address] Markus Finley MD [address] [place] [address] 11/15/2024 2:00 PM BINDER STRIPPER MACHINE Appointment [facility] [address] [place] [address] Markus Finley MD [address] [place] [address] Discharge Disposition: Discharged to home or Selfcare documented as of this encounter Visit Diagnoses Not on filedocumented in this encounter Care Teams Letter Carrier Relationship Specialty Start Date End Date Pritesh Chu MD [address] [address] PCP - General Family Medicine 04/18/24 Markus Finley MD [address] [place] [address] Consulting Physician Medical Oncology 04/18/24 Zander Cha MD [address] [address] Consulting Physician Colon and Rectal Surgery 08/24/24 documented as of this encounter
--- OUTSIDE RECORDS SUMMARY | 2024-10-27 03:39 | XMS_ITS | Encounter Summary ---
Author Organization [facility] Address [address] [place] [address] Phone Care Team Providers Care Personal Lines Underwriter Name Role Phone Pritesh Chu MD Primary Care Provider [phone] Markus Finley MD Unavailable [phone] Zander Cha MD Unavailable Encounter Details Date Type Department Care Team (Late st Contact Info) Description 08/29/2024 Telephone [facility] - Cancer Center Oncology Services [address] [place] [id number] Markus Finley MD [address] [place] [address] Social History Tobacco Use Types Packs/Day Years Used Date Smoking Tobacco: Former Cigarettes 0.5 5.6 S tarted: 04/18/2016 Smokeless Tobacco: Never Alcohol Use Standard Drinks/Week Comments Not Currently 0 (1 standard drink = 0.6 oz pur e alcohol) quit 2023 [facility] Utilities Answer Date Recorded In the past 12 months has [employer], gas, oil, or water company threatened to [...] How often do you attend druze or cheondoism serv ices? Patient declined 08/01/2024 [...] [facility] Occupat ional [facility] [...] stating too soon. This RN spoke with [facility] pharmacist and informed Dr. Finley had increased frequency earlier this month and that is reasoning why refill is needed sooner. Pharmacist stated she pushed override through and pt should be able to picker and packer rx tomorrow. Pt updated on the above and informed to call office if she has any issues. Pt verbalized understanding. documented in this encounter Plan of Treatment Upcoming Encounters Date Type Department Care Team (Late st Contact Info) Description 11/15/2024 1:00 PM DELIVERY ENGINEER Lab [facility] Laboratory Services [address] [place] [address] Markus Finley MD [address] [place] [address] 11/15/2024 2:00 PM DELIVERY ENGINEER Appointment [facility] MRI [address] [place] [address] Markus Finley MD [address] [place] [address] Discharge Disposition: Discharged to home or Selfcare documented as of this encounter Visit Diagnoses Not on filedocumented in this encounter Care Teams Personal Lines Underwriter Relationship Specialty Start Date End Date Pritesh Chu MD [address] [address] PCP - General Family Medicine 04/18/24 Markus Finley MD [address] [place] [address] Consulting Physician Medical Oncology 04/18/24 Zander Cha MD [address] [address] Consulting Physician Colon and Rectal Surgery 08/24/24 documented as of this encounter
--- OUTSIDE RECORDS SUMMARY | 2024-10-27 03:39 | XMS_ITS | Encounter Summary ---
Author Organization [employer] Care Team Providers Care Life Skills Specialist Name Role Phone Pritesh Chu MD Primary Care Provider [phone] Markus Finley MD Unavailable [phone] Zander Cha MD Unavailable Encounter Details Date Type Department Care Team (Latest Contact Info) Description 09/11/2024 Travel Social History Tobacco Use Types Packs/Day Years Used Date Smoking Tobacco: Former Cigarettes 0.5 5.6 S tarted: 04/18/2016 Smokeless Tobacco: Never Alcohol Use Standard Drinks/Week Comments Not Currently 0 (1 standard drink = 0.6 oz pur e alcohol) quit 2023 [facility] Utilities Answer Date Recorded In the past 12 months has [employer], gas, oil, or water [employer] threatened to shut off services in your home? Patient declined 08/01/2024 Social Connection and Isolation Panel [NHANES] A nswer Date Recorded In a typical week, how many times do you talk on the phone with family, friends, or neighbors? Patient declined 08/01/2024 How often do you get togethe r with friends or relatives? Patient declined 08/01/2024 How often do you attend jewish or evangelical serv ices? Patient declined 08/01/2024 [...] care, and heating? Patient declined 08/01/2024 [facility] - Occupational Stress Questionnaire Answer Date Recorded [...] skilled nursing (including now)? Patient declined 08/01/2024 Sexually Active [...] Contact Info) Description 11/15/2024 1:00 PM RN [facility] 1 [place] [address] Markus Finley MD [address] [place] [address] 11/15/2024 2:00 PM RN EMERGENCY [facility] 1 [place] [address] Markus Finley MD [address] [place] [address] Discharge Disposition: Discharged to home or Selfcare documented as of this encounter Visit Diagnoses Not on filedocumented in this encounter Care Teams Life Skills Specialist Relationship Specialty Start Date End Date Pritesh Chu MD [address] [place], [place] [id number] PCP - General Family Medicine 04/18/24 Markus Finley MD [address] [place] [address] Consulting Physician Medical Oncology 04/18/24 Zander Cha MD [address] [place] [address] Consulting Physician Colon and Rectal Surgery 08/24/24 documented as of this encounter
--- OUTSIDE RECORDS SUMMARY | 2024-10-27 03:39 | XMS_ITS | Encounter Summary ---
Author Organization [facility] Address [address] [facility] [place] [address] Phone Care Team Providers Care Photocomposing Keyboard Operator Name Role Phone Pritesh Chu MD Primary Care Provider [phone] Markus Finley MD Unavailable [phone] Zander Cha MD Unavailable Reason for Referral * Consult, Test & Initiate Treatment (Routine) - Closed Specialty Diagnoses / Procedures Referred By Contross t Referred To Contact Diagnoses Metastatic melanoma (HCC) Markus Finley MD [address] [place] [address] Phone: tel: fax: [facility] - General Surgery [facility] [address] [address] Phone: tel: fax: Referral ID Status Reason Start Date Expiration Date Visits Re quested Visits Authorized [id number] Closed 08/24/2024 1 1 Scheduling Instructions Dayanara is being referred for tissue sample for treatment options. Please contact patient for scheduling questions or concerns. Encounter Details Date Type Department Care Team (Late st Contact Info) Description 08/24/2024 11:30 AM CDT Clinical Support [facility] Cancer Center Oncology Services [address] [place] [address] Markus Finley MD [address] [place] [address] Diarrhea, unspecified type (Primary Dx); Metastatic melanoma [...] Recorded In the past 12 months has [employer], gas, oil, or water [employer] threatened to shut off services in your home? Patient declined 08/01/2024 Social Connection and Isolation Panel [NHANES] A nswer Date Recorded In a typical week, how many times do you talk on the phone with family, friends, or neighbors? Patient declined 08/01/2024 How often do you get togethe r with friends or relatives? Patient declined 08/01/2024 How often do you attend restoration or advent serv ices? Patient declined 08/01/2024 [...] time in the past 12 m [facility], were you homeless or living in [...] st Contact Info) Description 11/15/2024 1:00 PM CHEF & [facility]NER [facility] [address] [place] [address] Markus Finley MD [address] [place] [address] 11/15/2024 2:00 PM CHEF & OWNER [facility] [address] [place] [address] Markus Finley MD [address] [place] [address] Discharge Disposition: Discharged to home or Selfcare [...] - 145 mmol/L 08/24/2024 12:43 PM CDT [facility] POTASSIUM 3.5 3.5 - 5.1 mmol/L 08/24/2024 12:43 PM CDT [facility] CHLORIDE 106 98 - 107 mmol/L 08/24/2024 12:43 PM CDT [facility] CO2, VENOUS 22 22 - 30 mmol/L 08/24/2024 12:43 PM CDT [facility] ANION GAP 13.5 <18.0 mmol/L 08/24/2024 12:43 PM CDT [facility] GLUCOSE 98 70 - 99 mg/dL 08/24/2024 12:43 PM CDT [facility] BUN 17 5 - 18 mg/dL 08/24/2024 12:43 PM CDT [facility] CREATININE, BLOOD 0.95 0.60 - 1.00 mg/dL 08/24/2024 12:43 PM CDT [facility] BUN/CREATININE RATIO 18 12 - 20 ratio 08/24/2024 12:43 PM CDT [facility] TOTAL PROTEIN 5.6(L) 6.3 - 8.2 g/dL 08/24/2024 12:43 PM CDT [facility] ALBUMIN 3.5 3.5 - 5.0 g/dL 08/24/2024 12:43 PM CDT [facility] A/G RATIO 1.7 1.0 - 2.2 08/24/2024 12:43 PM CDT [facility] CALCIUM 8.7 8.7 - 10.5 mg/dL 08/24/2024 12:43 PM CDT [facility] T BILI 0.5 0.2 - 1.2 mg/dL 08/24/2024 12:43 PM CDT [facility] SGOT (AST) 27 5 - 34 U/L 08/24/2024 12:43 PM CDT [facility] SGPT (ALT) 107(H) 0 - 55 U/L 08/24/2024 12:43 PM CDT [facility] ALKALINE PHOSPHATASE 56 40 - 150 U/L 08/24/2024 12:43 PM CDT [facility] IS THE PATIENT REQUIRED TO BE FASTING? No 08/24/2024 12:43 PM CDT [facility] GFR, ESTIMATED >60 >=60 08/24/2024 [...] EST. >60 >=60 024 12:43 PM CDT [facility] GFR, EST. NONAFRICAN >60 >=60 08/24/2024 12:43 PM CDT [facility] Blood Venipuncture / Unknown 08/24/2024 12:05 PM CDT 08/24/2024 12:05 PM CDT Markus Finley MD CHEMISTRY ORDERABLES Fin al Result [facility] [address] [place] [address] * C. DIFF BY PCR (08/24/2024 11:39 AM CDT) C DIFF TOXIN DNA BY PCR Negative Negative, Invalid 08/24/2024 1:42 PM CDT [facility] Other STOOL SPECIMEN / Unknown Non-Phlebotomy Collection / Unknown 08/24/2024 11:39 AM CDT 08/24/2024 11:39 AM CDT Markus Finley MD MICROBIOLOGY - GENERAL O RDERABLES Final Result [facility] [address] [place] [address] documented in this encounter Visit Diagnoses Diagnosis [...] documented as of this encounter Care Teams Photocomposing Keyboard Operator Relationship Specialty Start Date End Date Pritesh Chu MD [address] [place] [address] PCP - General Family Medicine 04/18/24 Markus Finley MD [address] [place] [address] Consulting Physician Medical Oncology 04/18/24 Zander Cha MD [address] [address] Consulting Physician Colon and Rectal Surgery 08/24/24 documented as of this encounter
--- OUTSIDE RECORDS SUMMARY | 2024-10-27 03:39 | XMS_ITS | Encounter Summary ---
Author Organization [facility] Address [address] [facility] [place] [place] [address] Phone Care Team Providers Care Customs Manager Name Role Phone Pritesh Chu MD Primary Care Provider [phone] Markus Finley MD Unavailable [phone] Zander Cha MD Unavailable Encounter Details Date Type Department Care Team (Late st Contact Info) Description 09/11/2024 1:30 PM BRAILLE AND TALKING BOOKS CLERK Clinical Support [facility] - Cancer Center Oncology Services [address] [place] [phone] Markus Finley MD [address] [place] [address] Metastatic melanoma (HCC) Discharge Disposition: Discharged to home or Selfcare Social History Tobacco Use Types Packs/Day Years Used Date Smoking Tobacco: Former Cigarettes 0.5 5.6 S tarted: 04/18/2016 Smokeless Tobacco: Never Alcohol Use Standard Drinks/Week Comments Not Currently 0 (1 standard drink = 0.6 oz pur e alcohol) quit 2023 [facility] Utilities Answer Date Recorded In the past 12 months has th e electric, gas, oil, or water [employer] threatened to shut off services in your home? Patient declined 08/01/2024 Social Connection and Isolation Panel [NHANES] A nswer Date Recorded In a typical week, how many times do you talk on the phone with family, friends, or neighbors? Patient declined 08/01/2024 How often do you get togethe r with friends or relatives? Patient declined 08/01/2024 How often do you attend congregational or jew serv ices? Patient declined 08/01/2024 [...] medical care, and heating? Patient declined 08/01/2024 [facility] - Occupational Stress Questionnaire Answer Date [...] Comments Blood Pressure 131/90 09/11/2024 1:44 PM BRAILLE AND TALKING BOOKS CLERK Pulse 83 09/11/2024 1:44 PM BRAILLE AND TALKING BOOKS CLERK Temperature 36.6 ??C (97.8 ??F) 09/11/2024 1:44 PM CS T Respiratory Rate 18 09/11/2024 1:44 PM BRAILLE AND TALKING BOOKS CLERK Oxygen Saturation 98% 09/11/2024 1:44 PM BRAILLE AND TALKING BOOKS CLERK Inhaled Oxygen Concentration - - Weight 114.2 kg (251 lb 12.8 oz) 09/11/2024 1:44 PM BRAILLE AND TALKING BOOKS CLERK Height - - Body Mass Index 40.64 [...] aid placed. Pt discharged in stable condition. LLE AND TALKING BOOKS CLERK documented in this encounter Plan of Treatment Upcoming Encounters Date Type Department Care Team (Late st Contact Info) Description 11/15/2024 1:00 PM BRAILLE AND TALKING BOOKS CLERK [facility] [address] [place] [address] Markus Finley MD [address] [place], [place] [id number] 11/15/2024 2:00 PM BRAILLE AND TALKING BOOKS CLERK [facility]ment [facility] [address] [place] [address] Markus Finley MD [address] [place] [address] Discharge Disposition: Discharged to home or Selfcare documented as of this encounter Procedures Procedure Name Priority Date/Time Associated Diagnosis Comments CBC WITH AUTO DIFFERENTIAL STAT 09/11/2024 1:32 PM BRAILLE AND TALKING BOOKS CLERK Metastatic melanoma (HCC) MAGNESIUM (MG) Routine 09/11/2024 1:32 PM BRAILLE AND TALKING BOOKS CLERK CMP (COMPREHENSIVE METABOLIC PANEL) STAT 09/11/2024 1:32 PM BRAILLE AND TALKING BOOKS CLERK Metastatic melanoma (HCC) COMPLETE BLOOD COUNT (CBC) WITH DIFF STAT 09/11/2024 1:32 PM BRAILLE AND TALKING BOOKS CLERK Metastatic melanoma (HCC) documented in this encounter Results * (ABNORMAL) CBC WITH AUTO DIFFERENTIAL (09/11/2024 1:32 PM BRAILLE AND TALKING BOOKS CLERK) WBC 9.23 4.00 - 12.00 10(3)/mcL 09/11/2024 2:07 PM BRAILLE AND TALKING BOOKS CLERK [facility] RBC 4.07 3.80 - 5.30 10(6)/mcL 09/11/2024 2:07 PM [facility] HEMOGLOBIN (HGB) 12.9 12.0 - 15.8 g/dL 09/11/2024 2:07 PM [facility] HEMATOCRIT (HCT) 38.8 36.0 - 47.0 % 09/11/2024 2:07 PM [facility] MCV 95.3 82.0 - 96.0 fL 09/11/2024 2:07 PM [facility] MCH 31.7 26.0 - 34.0 pg 09/11/2024 2:07 PM [facility] MCHC 33.2 31.0 - 36.0 g/dL 09/11/2024 2:07 PM [facility] PLATELET COUNT 198 140 - 440 10(3)/mcL 09/11/2024 2:07 PM [facility] RDW 15.1 11.8 - 15.5 % 09/11/2024 2:07 PM [facility] MPV 9.5(L) 9.7 - 12.4 fL 09/11/2024 2:07 PM [facility] NEUTROPHILS 93.1(H) 47.0 - 73.0 % 09/11/2024 2:07 PM [facility] LYMPHOCYTES 3.8(L) 18.0 - 42.0 % 09/11/2024 2:07 PM [facility] MONOCYTES 3.0(L) 4.0 - 12.0 % 09/11/2024 2:07 PM [facility] EOSINOPHILS 0.0 0.0 - 5.0 % 09/11/2024 2:07 PM [facility] BASOPHILS 0.1 0.0 - 1.0 % 09/11/2024 2:07 PM [facility] ABSOLUTE NEUTROPHILS 8.59(H) 1.60 - 7.70 10(3)/mcL 09/11/2024 2:07 PM [facility] ABSOLUTE LYMPHOCYTES 0.35(L) 1.30 - 3.20 10(3)/mcL 09/11/2024 2:07 PM BRAILLE AND TALKING BOOKS CLERK [facility] ABSOLUTE MONOCYTES 0.28 0.20 - 1.00 10(3)/mcL 09/11/2024 2:07 PM BRAILLE AND TALKING BOOKS CLERK [facility] ABSOLUTE EOSINOPHIL 0.00 0.00 - 0.40 10(3)/mcL 09/11/2024 2:07 PM BRAILLE AND TALKING BOOKS CLERK [facility] ABSOLUTE BASOPHILS 0.01 0.00 - 0.10 10(3)/mcL 09/11/2024 2:07 PM BRAILLE AND TALKING BOOKS CLERK [facility] NRBC PER 100 WBC 0 09/11/20 24 2:07 PM [facility] RESULTS ARE CONSISTENT WITH PERIPHERAL SMEAR REVIEW Yes 09/11/2024 2:07 PM [facility] Blood Sub-Q Port Venou s Access Device (Medi-Port, Implanted Port) / Unknown 09/11/2024 1:32 PM BRAILLE AND TALKING BOOKS CLERK 09/11/2024 1:33 PM BRAILLE AND TALKING BOOKS CLERK us Markus Luana Finley MD HEMATOLOGY ORDERABLES Fi nal Result [facility] [address] [place] [address] * (ABNORMAL) CMP (COMPREHENSIVE METABOLIC PANEL) (09/11/2024 1:32 PM BRAILLE AND TALKING BOOKS CLERK) SODIUM 139 136 - 145 mmol/L 09/11/2024 2:07 PM BRAILLE AND TALKING BOOKS CLERK [facility] POTASSIUM 3.8 3.5 - 5.1 mmol/L 09/11/2024 2:07 PM BRAILLE AND TALKING BOOKS CLERK [facility] CHLORIDE 107 98 - 107 mmol/L 09/11/2024 2:07 PM [facility] CO2, VENOUS 22 22 - 30 mmol/L 09/11/2024 2:07 PM BRAILLE AND TALKING BOOKS CLERK [facility] ANION GAP 13.8 <18.0 mmol/L 09/11/2024 2:07 PM [facility] GLUCOSE 145(H) 70 - 99 mg/dL 09/11/2024 2:07 PM [facility] BUN 25(H) 5 - 18 mg/dL 09/11/2024 2:07 PM [facility] CREATININE, BLOOD 0.87 0.60 - 1.00 mg/dL 09/11/2024 2:07 PM [facility] BUN/CREATININE RATIO 29(H) 12 - 20 ratio 09/11/2024 2:07 PM [facility] TOTAL PROTEIN 6.2(L) 6.3 - 8.2 g/dL 09/11/2024 2:07 PM [facility] ALBUMIN 4.0 3.5 - 5.0 g/dL 09/11/2024 2:07 PM [facility] A/G RATIO 1.8 1.0 - 2.2 09/11/2024 2:07 PM [facility] CALCIUM 8.9 8.7 - 10.5 mg/dL 09/11/2024 2:07 PM [facility] T BILI 0.5 0.2 - 1.2 mg/dL 09/11/2024 2:07 PM [facility] SGOT (AST) 13 5 - 34 U/L 09/11/2024 2:07 PM [facility] SGPT (ALT) 56(H) 0 - 55 U/L 09/11/2024 2:07 PM [facility] ALKALINE PHOSPHATASE 58 40 - 150 U/L 09/11/2024 2:07 PM [facility] IS THE PATIENT REQUIRED TO BE FASTING? No 09/11/2024 2:07 PM [facility] GFR, ESTIMATED >60 >=60 09/11/2024 2:07 PM [facility] Comment: Creatinine Clearance is the preferred criteria for selecting drug dose adjustments in renally impaired patients. ??The GFR is provided as additional pertinent clinical information. GFR is reported in mL/min/1.73 sq m. Calculation based on the Chronic Kidney Disease Epidemiology Collaboration (CKD- EPI) equation refit without adjustment for race. GFR, EST. >60 >=60 024 2:07 PM BRAILLE AND TALKING BOOKS CLERK [facility] GFR, EST. NONAFRICAN >60 >=60 09/11/2024 2:07 PM BRAILLE AND TALKING BOOKS CLERK [facility] Blood Sub-Q Port Venou s Access Device (Medi-Port, Implanted Port) / Unknown 09/11/2024 1:32 PM BRAILLE AND TALKING BOOKS CLERK 09/11/2024 1:33 PM BRAILLE AND TALKING BOOKS CLERK Markus Finley MD CHEMISTRY ORDERABLES Fin al Result Performing Organization Address City/[facility]/ZIP Co de Phone Number [facility] [address] [place] [address] * MAGNESIUM (MG) (09/11/2024 1:32 PM BRAILLE AND TALKING BOOKS CLERK) MAGNESIUM 2.1 1.6 - 2.6 mg/dL 09/11/2024 2:07 PM BRAILLE AND TALKING BOOKS CLERK [facility] Blood Sub-Q Port Venou s Access Device (Medi-Port, Implanted Port) / Unknown 09/11/2024 1:32 PM BRAILLE AND TALKING BOOKS CLERK 09/11/2024 1:33 PM BRAILLE AND TALKING BOOKS CLERK Markus Finley MD CHEMISTRY ORDERABLES Fin al Result Performing Organization Address City/[facility]/ZIP Co de Phone Number [facility] [address] [place] [address] documented in this encounter Visit Diagnoses Diagnosis Metastatic melanoma (HCC) Melanoma of skin, site unspecified documented in this encounter Administered Medications Inactive Administered Medications - up to 3 most recent administrations Medication Order MAR Action Action Date Dose Rate Site 0.9 % sodium chloride solution at 999 mL/hr, Intravenous, ONCE, 1 dose, On Tue09/11/24 at 1400Indications:Metastatic melanoma (HCC) New Bag 09/11/2024 1:36 PM BRAILLE AND TALKING BOOKS CLERK 999 mL/hr Heparin Na (Pork) Lock Flsh PF SOLN 50 Units 50 Units, Intravenous, PRN, Starting on Tue09/11/24 at 1333, Until Tue09/11/24 at 1745, Line CareIndications:Metastatic melanoma (HCC) Given 09/11/2024 2:45 PM BRAILLE AND TALKING BOOKS CLERK 50 Units documented in this encounter Care Teams Customs Manager Relationship Specialty Start Date End Date Pritesh Chu MD [address] [place] [address] PCP - General Family Medicine 04/18/24 Markus Finley MD [address] [place] [address] Consulting Physician Medical Oncology 04/18/24 Zander Cha MD [address] [address] Consulting Physician Colon and Rectal Surgery 08/24/24 documented as of this encounter
--- OUTSIDE RECORDS SUMMARY | 2024-10-27 03:39 | XMS_ITS | Encounter Summary ---
Author Organization [facility] Care Team Providers Care Commercial Energy Auditor Name Role Phone Pritesh Chu MD Primary Care Provider [phone] Markus Finley MD Unavailable [phone] Encounter Details Date Type Department Care Team (Latest Contact Info) Description 08/22/2024 Travel Social History Tobacco Use Types Packs/Day Years Used Date Smoking Tobacco: Former Cigarettes 0.5 8.5 S tarted: 04/18/2016 Smokeless Tobacco: Never Alcohol Use Standard Drinks/Week Comments Yes 0 (1 standard drink = 0.6 oz pur e alcohol) [facility] Utilities Answer Date Recorded In the past 12 months has [employer], gas, oil, or water [employer] threatened to shut off services in your home? Patient declined 08/01/2024 Social Connection and Isolation Panel [NHANES] A nswer Date Recorded In a typical week, how many times do you talk on the phone with family, friends, or neighbors? Patient declined 08/01/2024 How often do you get togethe r with friends or relatives? Patient declined 08/01/2024 How often do you attend moravian or uatsdin serv ices? Patient declined 08/01/2024 [...] [facility] of Occupat ional [facility] - Occupational Stress Questionnaire [...] any time in the past 12 m [facility], were you homeless or [...] st Contact Info) Description 11/15/2024 1:00 PM SECTIONAL BELT MOLD ASSEMBLER Lab [facility] [address] [place] [address] Markus Finley MD [address] [place] [address] 11/15/2024 2:00 PM SECTIONAL BELT MOLD ASSEMBLER [facility] [address] [place] [address] Markus Finley MD [address] [place] [address] Discharge Disposition: Discharged to home or Selfcare documented as of this encounter Visit Diagnoses Not on filedocumented in this encounter Care Teams Commercial Energy Auditor Relationship Specialty Start Date End Date Pritesh Chu MD [address] [place] [address] PCP - General Family Medicine 04/18/24 Markus Finley MD [address] [place] [address] Consulting Physician Medical Oncology 04/18/24 documented as of this encounter
--- OUTSIDE RECORDS SUMMARY | 2024-10-27 03:40 | XMS_ITS | Encounter Summary ---
Author Organization [facility] Address [address] [place] [address] Phone Care Team Providers Care Collar Fuser Name Role Phone Pritesh Chu MD Primary Care Provider [phone] Markus Finley MD Unavailable [phone] Reason for Visit * Episode Based Medications (Routine) - Closed Specialty Diagnoses / Procedures Referred By Contross t Referred To Contact Diagnoses Metastatic melanoma (HCC) Markus Finley MD [address] [place] [address] Phone: tel: fax: [facility] Oncology Services [address] [place] [address] Phone: tel: fax: Referral ID Status Reason Start Date Expiration Date Visits Re quested Visits Authorized [id number] Closed 04/19/2024 1 30 Encounter Details Date Type Department Care Team (Late st Contact Info) Description 08/08/2024 11:30 AM CDT Clinical Support [facility] Oncology Services [address] [place] [address] Markus Finley MD [address] [place] [address] Metastatic melanoma (HCC) Discharge Disposition: Discharged to home or Selfcare Social History Tobacco Use Types Packs/Day Years Used Date Smoking Tobacco: Former Cigarettes 0.5 8.5 S tarted: 04/18/2016 Smokeless Tobacco: Never Alcohol Use Standard Drinks/Week Comments Yes 0 (1 standard drink = 0.6 oz pur e alcohol) [facility] Utilities Answer Date Recorded In the [...] How often do you attend scientologist or denominational serv ices? Patient declined 08/01/2024 [...] medical care, and heating? Patient declined 08/01/2024 [facility] [place] of Occupat ional Health - Occupational Stress [...] time in the past 12 m [facility], were you homeless or living [...] st Contact Info) Description 11/15/2024 1:00 PM CONGRESSIONAL REPRESENTATIVE [facility] [address] [place] [address] Markus Finley MD [address] [place] [address] 11/15/2024 2:00 PM CONGRESSIONAL REPRESENTATIVE [facility]ointment [facility] 1 [place] [address] Markus Finley MD [address] [place] [address] Discharge Disposition: Discharged to home or Selfcare documented as of this encounter Procedures Procedure Name Priority Date/Time Associated Diagnosis Comments CMP (COMPREHENSIVE METABOLIC PANEL) STAT 08/08/2024 12:00 PM CDT Metastatic melanoma (HCC) documented in this encounter Results * (ABNORMAL) CMP (COMPREHENSIVE METABOLIC PANEL) (08/08/2024 12:00 PM CDT) SODIUM 133(L) 136 - 145 mmol/L 08/08/2024 12:40 PM CDT [facility] POTASSIUM 3.6 3.5 - 5.1 mmol/L 08/08/2024 12:40 PM CDT [facility] CHLORIDE 108(H) 98 - 107 mmol/L 08/08/2024 12:40 PM CDT [facility] CO2, VENOUS 20(L) 22 - 30 mmol/L 08/08/2024 12:40 PM CDT [facility] ANION GAP 8.6 <18.0 mmol/L 08/08/2024 12:40 PM CDT [facility] GLUCOSE 143(H) 70 - 99 mg/dL 08/08/2024 12:40 PM CDT [facility] BUN 12 5 - 18 mg/dL 08/08/2024 12:40 PM CDT [facility] CREATININE, BLOOD 1.00 0.60 - 1.00 mg/dL 08/08/2024 12:40 PM CDT [facility] BUN/CREATININE RATIO 12 12 - 20 ratio 08/08/2024 12:40 PM CDT [facility] TOTAL PROTEIN 6.0(L) 6.3 - 8.2 g/dL 08/08/2024 12:40 PM CDT [facility] ALBUMIN 3.4(L) 3.5 - 5.0 g/dL 08/08/2024 12:40 PM CDT [facility] A/G RATIO 1.3 1.0 - 2.2 08/08/2024 12:40 PM CDT [facility] CALCIUM 8.8 8.7 - 10.5 mg/dL 08/08/2024 12:40 PM CDT [facility] T BILI 0.5 0.2 - 1.2 mg/dL 08/08/2024 12:40 PM CDT [facility] SGOT (AST) 15 5 - 34 U/L 08/08/2024 12:40 PM CDT [facility] SGPT (ALT) 58(H) 0 - 55 U/L 08/08/2024 12:40 PM CDT [facility] ALKALINE PHOSPHATASE 71 40 - 150 U/L 08/08/2024 12:40 PM CDT [facility] IS THE PATIENT REQUIRED TO BE FASTING? No 08/08/2024 12:40 PM CDT [facility] GFR, ESTIMATED >60 >=60 08/08/2024 12:40 PM CDT [facility] Comment: Creatinine Clearance is the preferred criteria for selecting drug dose adjustments in renally impaired patients. ??The GFR is provided as additional pertinent clinical information. GFR is reported in mL/min/1.73 sq m. Calculation based on the Chronic Kidney Disease Epidemiology Collaboration (CKD- EPI) equation refit without adjustment for race. GFR, EST. >60 >=60 024 12:40 PM CDT [facility] GFR, EST. NONAFRICAN >60 >=60 08/08/2024 12:40 PM CDT [facility] Blood Sub-Q Port Venou s Access Device (Medi-Port, Implanted Port) / Unknown 08/08/2024 12:00 PM CDT 08/08/2024 12:00 PM CDT us Markus Finley MD CHEMISTRY ORDERABLES Fin al Result [facility] #1 [place] [address] documented in this encounter Visit Diagnoses Diagnosis [...] mL/hr documented in this encounter Care Teams Collar Fuser Relationship Specialty Start Date End Date Pritesh Chu MD [address] [address] PCP - General Family Medicine 04/18/24 Markus Finley MD [address] [place] [address] Consulting Physician Medical Oncology 04/18/24 documented as of this encounter
--- OUTSIDE RECORDS SUMMARY | 2024-10-27 03:40 | XMS_ITS | Encounter Summary ---
Author Organization [facility] Care Team Providers Care Drop Worker Name Role Phone Pritesh Chu MD Primary Care Provider [phone] Markus Finley MD Unavailable [phone] Encounter Details Date Type Department Care Team (Latest Contact Info) Description 07/25/2024 Travel Social History Tobacco Use Types Packs/Day Years Used Date Smoking Tobacco: Former Cigarettes 0.5 8.5 S tarted: 04/18/2016 Smokeless Tobacco: Never Alcohol Use Standard Drinks/Week Comments Yes 0 (1 standard drink = 0.6 oz pur e alcohol) [facility] Utilities Answer Date Recorded In the past 12 months has [employer], gas, oil, or water [employer] threatened to shut off services in your home? Patient declined 07/25/2024 Social Connection and Isolation Panel [NHANES] A nswer Date Recorded In a typical week, how many times do you talk on the phone with family, friends, or neighbors? Patient declined 07/25/2024 How often do you get togethe r with friends or relatives? Patient declined 07/25/2024 How often do you attend mormonism or evangelical serv ices? Patient declined 07/25/2024 Do you [...] medical care, and heating? Patient declined 07/25/2024 [facility] of Occupat ional Health [...] in a usp (including now)? Patient declined 07/25/2024 Comments No [...] st Contact Info) Description 11/15/2024 1:00 PM PHOTONICS TECHNICIAN [facility] [address] [place] [address] Markus Finley MD [address] [place] [address] 11/15/2024 2:00 PM PHOTONICS TECHNICIAN [facility]ointment [facility] 1 [place] [phone] Markus Finley MD [address] [place] [address] Discharge Disposition: Discharged to home or Selfcare documented as of this encounter Visit Diagnoses Not on filedocumented in this encounter Care Teams Drop Worker Relationship Specialty Start Date End Date Pritesh Chu MD [address] [place] [address] PCP - General Family Medicine 04/18/24 Markus Finley MD [address] [place] [address] Consulting Physician Medical Oncology 04/18/24 documented as of this encounter
--- OUTSIDE RECORDS SUMMARY | 2024-10-27 03:40 | XMS_ITS | Encounter Summary ---
Author Organization [facility] Address [address] [facility] [place] [address] Phone Care Team Providers Care Craft Superintendent Name Role Phone Pritesh Chu MD Primary Care Provider [phone] Markus Finley MD Unavailable [phone] Encounter Details Date Type Department Care Team (Late st Contact Info) Description 08/06/2024 11:30 AM CDT Clinical Support [facility] Oncology Services [address] [place] [phone] Markus Finley MD [address] [place] [address] Diarrhea due to drug (Primary Dx); Metastatic melanoma (HCC) Discharge Disposition: Discharged to home or Selfcare Social History Tobacco Use Types Packs/Day Years Used Date Smoking Tobacco: Former Cigarettes 0.5 8.5 S tarted: 04/18/2016 Smokeless Tobacco: Never Alcohol Use Standard Drinks/Week Comments Yes 0 (1 standard drink = 0.6 oz pur e alcohol) [facility] Utilities Answer Date Recorded In the past 12 months has [employer] or [employer] threatened to shut off services in your home? Patient declined 08/01/2024 Social Connection and Isolation Panel [NHANES] A nswer Date Recorded In a typical week, how many times do you talk on the phone with family, friends, or neighbors? Patient declined 08/01/2024 How often do you get togethe r with friends or relatives? Patient declined 08/01/2024 How often do you attend jainism or caodaism serv ices? Patient declined 08/01/2024 [...] Contact Info) Description 11/15/2024 1:00 PM GENERAL MAINTENANCE MECHANIC Lab [facility] Laboratory Services [address] [place] [address] Markus Finley MD [address] [place] [address] 11/15/2024 2:00 PM GENERAL MAINTENANCE MECHANIC [facility]ointment [facility] 1 [place] [phone] Markus Finlye MD [address] [place] [address] Discharge Disposition: Discharged to home or Selfcare documented as of this encounter Procedures Procedure Name Priority Date/Time Associated Diagnosis Comments CMP (COMPREHENSIVE METABOLIC PANEL) STAT 08/06/2024 1:13 PM CDT documented in this encounter Results * (ABNORMAL) CMP (Comprehensive Metabolic Panel) (08/06/2024 1:13 PM CDT) SODIUM 129(L) 136 - 145 mmol/L 08/06/2024 1:36 PM CDT [facility] POTASSIUM 3.7 3.5 - 5.1 mmol/L 08/06/2024 1:36 PM CDT [facility] CHLORIDE 106 98 - 107 mmol/L 08/06/2024 1:36 PM CDT [facility] CO2, VENOUS 16(L) 22 - 30 mmol/L 08/06/2024 1:36 PM CDT [facility] ANION GAP 10.7 <18.0 mmol/L 08/06/2024 1:36 PM CDT [facility] GLUCOSE 155(H) 70 - 99 mg/dL 08/06/2024 1:36 PM CDT [facility] BUN 14 5 - 18 mg/dL 08/06/2024 1:36 PM CDT [facility] CREATININE, BLOOD 1.15(H) 0.60 - 1.00 mg/dL 08/06/2024 1:36 PM CDT [facility] BUN/CREATININE RATIO 12 12 - 20 ratio 08/06/2024 1:36 PM CDT [facility] TOTAL PROTEIN 6.3 6.3 - 8.2 g/dL 08/06/2024 1:36 PM CDT [facility] ALBUMIN 3.5 3.5 - 5.0 g/dL 08/06/2024 1:36 PM CDT [facility] A/G RATIO 1.3 1.0 - 2.2 08/06/2024 1:36 PM CDT [facility] CALCIUM 9.0 8.7 - 10.5 mg/dL 08/06/2024 1:36 PM CDT [facility] T BILI 0.4 0.2 - 1.2 mg/dL 08/06/2024 1:36 PM CDT [facility] SGOT (AST) 19 5 - 34 U/L 08/06/2024 1:36 PM CDT [facility] SGPT (ALT) 51 0 - 55 U/L 08/06/2024 1:36 PM CDT [facility] ALKALINE PHOSPHATASE 66 40 - 150 U/L 08/06/2024 1:36 PM CDT [facility] GFR, ESTIMATED >60 >=60 08/06/2024 1:36 PM CDT [facility] [...] EST. >60 >=60 024 1:36 PM CDT [facility] GFR, EST. NONAFRICAN 58(L) >=60 08/06/2024 1:36 PM CDT [facility] Blood Sub-Q Port Venou s Access Device (Medi-Port, Implanted Port) / Unknown 08/06/2024 1:13 PM CDT 08/06/2024 1:13 PM CDT us Markus Finley MD CHEMISTRY ORDERABLES Fin al Result [facility]1 [facility] [place] [address] documented in this encounter Visit Diagnoses Diagnosis [...] Units documented in this encounter Care Teams Craft Superintendent Relationship Specialty Start Date End Date Pritesh Chu MD [address] [address] PCP - General Family Medicine 04/18/24 Markus Finley MD [address] [place] [address] Consulting Physician Medical Oncology 04/18/24 documented as of this encounter
--- OUTSIDE RECORDS SUMMARY | 2024-10-27 03:40 | XMS_ITS | Encounter Summary ---
Author Organization [facility] Address [address] [facility] [place] [address] Phone Care Team Providers Care Unix Consultant Name Role Phone Pritesh Chu MD Primary Care Provider [phone] Markus Finley MD Unavailable Reason for Visit * Episode Based Medications (Routine) - Closed Specialty Diagnoses / Procedures Referred By Contross t Referred To Contact Diagnoses Metastatic melanoma (HCC) Markus Finley MD [address] [place] [address] Phone: tel: fax: [facility] Oncology Services [address] [place] [address] Phone: tel: fax: Referral ID Status Reason Start Date Expiration Date Visits Re quested Visits Authorized [id number] Closed 04/19/2024 1 30 Encounter Details Date Type Department Care Team (Late st Contact Info) Description 08/15/2024 11:30 AM CDT Clinical Support [facility] Oncology Services [address] [place] [address] Markus Finley MD [address] [place] [address] Metastatic melanoma (HCC) Discharge Disposition: Discharged to [...] How often do you attend evangelical or protestant serv ices? Patient declined 08/01/2024 [...] medical care, and heating? Patient declined 08/01/2024 [facility] of Occupat ional Health - Occupational Stress [...] any time in the past 12 m [facility], were you homeless or living in a [...] st Contact Info) Description 11/15/2024 1:00 PM GAS UTILITY WORKER Lab [facility] 1 [place] [address] Markus Finley MD [address] [place] [address] 11/15/2024 2:00 PM GAS UTILITY WORKER [facility]ment [facility] 1 [facility] [place] [address] Markus Finley MD [address] [place] [address] Discharge Disposition: Discharged to home or Selfcare documented as of this encounter Procedures Procedure Name Priority Date/Time Associated Diagnosis Comments CMP (COMPREHENSIVE METABOLIC PANEL) STAT 08/15/2024 11:35 AM CDT Metastatic melanoma (HCC) documented in this encounter Results * (ABNORMAL) CMP (COMPREHENSIVE METABOLIC PANEL) (08/15/2024 11:35 AM CDT) SODIUM 132(L) 136 - 145 mmol/L 08/15/2024 12:21 PM CDT [facility] POTASSIUM 4.0 3.5 - 5.1 mmol/L 08/15/2024 12:21 PM T [facility] CHLORIDE 100 98 - 107 mmol/L 08/15/2024 12:21 PM CDT [facility] CO2, VENOUS 25 22 - 30 mmol/L 08/15/2024 12:21 PM T [facility] ANION GAP 11.0 <18.0 mmol/L 08/15/2024 12:21 PM T [facility] GLUCOSE 87 70 - 99 mg/dL 08/15/2024 12:21 PM T [facility] BUN 24(H) 5 - 18 mg/dL 08/15/2024 12:21 PM T [facility] CREATININE, BLOOD 0.91 0.60 - 1.00 mg/dL 08/15/2024 12:21 PM T [facility] BUN/CREATININE RATIO 26(H) 12 - 20 ratio 08/15/2024 12:21 PM CDT [facility] TOTAL PROTEIN 6.2(L) 6.3 - 8.2 g/dL 08/15/2024 12:21 PM T [facility] ALBUMIN 3.7 3.5 - 5.0 g/dL 08/15/2024 12:21 PM CDT [facility] A/G RATIO 1.5 1.0 - 2.2 08/15/2024 12:21 PM T [facility] CALCIUM 8.8 8.7 - 10.5 mg/dL 08/15/2024 12:21 PM CDT [facility] T BILI 0.9 0.2 - 1.2 mg/dL 08/15/2024 12:21 PM T [facility] SGOT (AST) 21 5 - 34 U/L 08/15/2024 12:21 PM CDT [facility] SGPT (ALT) 69(H) 0 - 55 U/L 08/15/2024 12:21 PM CDT [facility] ALKALINE PHOSPHATASE 65 40 - 150 U/L 08/15/2024 12:21 PM CDT [facility] IS THE PATIENT REQUIRED TO BE FASTING? No 08/15/2024 12:21 PM CDT [facility] GFR, ESTIMATED >60 >=60 08/15/2024 12:21 PM CDT [facility] Comment: Creatinine Clearance is the preferred criteria for selecting drug dose adjustments in renally impaired patients. ??The GFR is provided as additional pertinent clinical information. GFR is reported in mL/min/1.73 sq m. Calculation based on the Chronic Kidney Disease Epidemiology Collaboration (CKD- EPI) equation refit without adjustment for race. GFR, EST. >60 >=60 024 12:21 PM CDT [facility] GFR, EST. NONAFRICAN >60 >=60 08/15/2024 12:21 PM CDT [facility] Blood Sub-Q Port Venou s Access Device (Medi-Port, Implanted Port) / Unknown 08/15/2024 11:35 AM CDT 08/15/2024 11:35 AM CDT Markus Finley MD CHEMISTRY ORDERABLES Fin al Result [facility] #[address] [place] [address] documented in this encounter Visit Diagnoses Diagnosis [...] Units documented in this encounter Care Teams Unix Consultant Relationship Specialty Start Date End Date Pritesh Chu MD [address] [place] [address] PCP - General Family Medicine 04/18/24 Markus Finley MD [address] [place] [address] Consulting Physician Medical Oncology 04/18/24 documented as of this encounter
--- OUTSIDE RECORDS SUMMARY | 2024-10-27 03:40 | XMS_ITS | Encounter Summary ---
Author Organization [facility] Address [address] [facility] [place] [address] Phone Care Team Providers Care Junior Network Administrator Name Role Phone Pritesh Chu MD Primary Care Provider [phone] Markus Finley MD Unavailable [phone] Zander Cha MD Unavailable Reason for Referral * Consult, Test & Initiate Treatment (Routine) - Closed Specialty Diagnoses / Procedures Referred By Contross t Referred To Contact General Surgery Diagnoses Metastatic melanoma (HCC) Subcutaneous nodule of left lower extremity Markus Finley MD [address] [place] [address] Phone: tel: fax: [facility] - General Surgery [facility] [address]2 [facility] [address] [address] Phone: tel: fax: Referral ID Status Reason Start Date Expiration Date Visits Re quested Visits Authorized [id number] Closed 08/22/2024 1 1 Scheduling Instructions Dayanara [...] fluids normal saline daily via port., Disp: 81499 mL, Rfl: 0 No current facility-administered medications [...] [facility] Oncology Services [address] [place] [address] Markus Finley MD [address] [place] [address] Non-alcoholic fatty liver disease (Primary Dx); Diarrhea [...] drink = 0.6 oz pur e alcohol) [facility] Utilities Answer Date Recorded In the past 12 months has e [employer], gas, oil, or water [employer] threatened to shut off services in your home? Patient declined 08/01/2024 Social Connection and Isolation Panel [NHANES] A nswer Date Recorded In a typical week, how many times do you talk on the phone with family, friends, or neighbors? Patient declined 08/01/2024 How often do you get togethe r with friends or relatives? Patient declined 08/01/2024 How often do you attend christianity or mormonism serv ices? Patient declined 08/01/2024 Do you belong to any clubs o r organizations such as christianity groups, unions, fraternal or athletic groups, or [...] declined 08/01/2024 [facility] - Occupational Stress Questionnaire Answer [...] received on 07/17/24. Patient was admitted to [facility] from 07/25/24through 07/30/24 and 08/02/24 [...] Yervoy and Opdivo on 07/17/24 --admitted to [facility] from 07/25/24 through 07/30/24 and [...] 4.[address] abdomen pelvis done at [facility] on 06/27/2024 No evidence of appendicitis. No [...] needs referral to oncological surgeon at [facility]. 9. Obtain C.diff stool testing to assess [...] received on 07/17/24. Patient was admitted to [facility] from 07/25/24through 07/30/24 and 08/02/24 [...] Yervoy and Opdivo on 07/17/24 --admitted to [facility] from 07/25/24 through 07/30/24 and [...] 4.[address] abdomen pelvis done at [facility] on 06/27/2024 No evidence of appendicitis. No [...] needs referral to oncological surgeon at [facility]. 9. Obtain C.diff stool testing to assess [...] Contact Info) Description 11/15/2024 1:00 PM TRAVEL NURSE Lab [facility] [address] [place] [address] Markus Finley MD [address] [place] [address] 11/15/2024 2:00 PM TRAVEL NURSE [facility]ment [facility] [place] [address] Markus Finley MD [address] [place] [address] Discharge Disposition: Discharged to home or Selfcare [...] documented as of this encounter Care Teams Junior Network Administrator Relationship Specialty Start Date End Date Pritesh Chu MD [address] [address] PCP - General Family Medicine 04/18/24 Markus Finley MD [address] [place] [address] Consulting Physician Medical Oncology 04/18/24 Zander Cha MD [address] [address] Consulting Physician Colon and Rectal Surgery 08/24/24 documented as of this encounter
--- OUTSIDE RECORDS SUMMARY | 2024-10-27 03:40 | XMS_ITS | Encounter Summary ---
Author Organization [facility] Address [address] [facility] [place] [address] Phone Care Team Providers Care Pressure Dispatcher Name Role Phone Pritesh Chu MD Primary Care Provider [phone] Markus Finley MD Unavailable [phone] Reason for Referral * Radiology Services (Routine) - Closed Specialty Diagnoses / Procedures Referred By Delbert villareal Referred To Contact Radiology Diagnoses Metastatic melanoma (HCC) Procedures PET CT TUMOR IMAGING WHOLE BODY Markus Finley MD [address] [place] [address] Phone: tel: fax: Referral ID Status Reason Start Date Expiration Date Visits Re quested Visits Authorized [id number] Closed 08/06/2024 1 1 Reason for Visit * Reason Comments Follow-up Encounter Details Date Type Department Care Team (Latest Contact Info) Description 08/06/2024 10:40 AM CDT Office Visit [facility] Oncology Services [address] [place] [address] Markus Finley MD [address] [place] [address] Metastatic melanoma (HCC) (Primary Dx); 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 Patient declined 08/01/2024 Social Connection and Isolation Panel [NHANES] A nswer Date Recorded In a typical week, how many times do you talk on the phone with family, friends, or neighbors? Patient declined 08/01/2024 How often do you get togethe r with friends or relatives? Patient declined 08/01/2024 How often do you attend jehovah's witness or nondenominational serv ices? Patient declined 08/01/2024 [...] medical care, and heating? Patient declined 08/01/2024 [facility] [employer] - Occupational Stress [...] in the past 12 m [facility], were you homeless or living in a [...] called Chris. Patient was recently admitted to [facility] from 07/25/24 through 07/30/24 and 08/02/24 [...] Yervoy and Opdivo on 07/17/24 --admitted to [facility] from 07/25/24 through 07/30/24 and 08/02/24 [...] IMAGING STUDIES: CT abdomen pelvis done at [facility] on 06/27/2024 No evidence of [...] called Chris. Patient was recently admitted to [facility] from 07/25/24 through 07/30/24 and 08/02/24 [...] 4 of Christoph on 07/17/24 --admitted to [facility] from 07/25/24 through 07/30/24 and 08/02/24 [...] IMAGING STUDIES: CT abdomen pelvis done at [facility] on 06/27/2024 No evidence of [...] her PET scan per patient's request at [facility] this time to evaluate response in the [...] st Contact Info) Description 11/15/2024 1:00 PM [employer] [facility] Laboratory Services [address] [place] [address] Markus Finley MD [address] [place] [address] 11/15/2024 2:00 PM [employer] Appointment [facility] MRI [address] [place] [address] Markus Finley MD [address] [place] [address] Discharge Disposition: Discharged to home or Selfcare [...] AM T: ??08/16/2024 11:30 AM Report ID: [id number] Reading Location: ??[id number] Procedure Note Zachariah Carrizales MD - 08/16/2024 [...] Zachariah Carrizales M.D. LB: KRUNAL Report ID: [id number] Reading Location: [id number] IMPRESSION: Hypermetabolic left inguinal lymph node measuring [...] unspecified documented in this encounter Care Teams Pressure Dispatcher Relationship Specialty Start Date End Date Pritesh Chu MD [address] [address] PCP - General Family Medicine 04/18/24 Markus Finley MD [address] [place] [address] Consulting Physician Medical Oncology 04/18/24 documented as of this encounter
--- OUTSIDE RECORDS SUMMARY | 2024-10-27 03:40 | XMS_ITS | Encounter Summary ---
Author Organization [facility] Address [address] [place] [address] Phone Care Team Providers Care Distribution System Operator Name Role Phone Kellen Chu MD Primary Care Provider [phone] Markus Finley MD Unavailable [phone] Reason for Visit * Reason Comments Abnormal Study/Test Result * Auth/Cert (Routine) Specialty Diagnoses / Procedures Referred By Contac t Referred To Contact Diagnoses Hypokalemia ALEXX (acute kidney injury) (FORMERLY [facility]) Ranjan Stuart MD [address] [place] [address] Phone: tel: fax: Referral ID Status Reason Start Date Expiration Date Visits Re quested Visits Authorized [id number] 1 1 Encounter Details Date Type Department Care Team (Latest Contact Info) Description 07/25/2024 11:42 AM CDT - 07/30/2024 3:39 PM CDT Hospital Encounter [facility] Med Surg [address] [place] [address] Gael Morales MD [address] [place] [address] Ranjan Stuart MD [address] [place] [address] Brayan Petty MD [address] [place] [address] ALEXX (acute kidney injury) (FORMERLY [facility]) Discharge Disposition: Discharged to home or Selfcare Social History Tobacco Use Types Packs/Day Years Used Date Smoking Tobacco: Former Cigarettes 0.5 8.5 S tarted: 04/18/2016 Smokeless Tobacco: Never Alcohol Use Standard Drinks/Week Comments Yes 0 (1 standard drink = 0.6 oz pur e alcohol) [facility] Utilities Answer Date [...] declined 07/25/2024 How often do you attend confucianist or oriental orthodox serv ices? Patient declined 07/25/2024 Do you [...] medical care, and heating? Patient declined 07/25/2024 [place] [place] [employer] [facility] - Occupational Stress [...] any time in the past 12 m [facility], were you homeless or living in [...] oncologist as previously scheduled for 08/01/2024, andwith mortgage analyst in 2 weeks. Exam Day of Discharge: [...] HGBA1C 5.5 07/24/2024 No results found for: [id number] No results found for: CPK , CPKI , CKMB , CKMBNI , CKMBPOCT , CKMBRELINDX , TROPONINI , POCTRP No results found for: FERRITIN No results found for: FOLATE No results found for: PHARTERIAL , PO2ART , [id number] , CO2ART , O2ART Lab Results Component [...] 1st line. potassium chloride SA 20 MEQ Cak-vtmn-voj Commonly known as: KLORCON M Take 2 [...] Thank you very much for allowing the [facility] Adult Hospitalist Service to participate in [...] PCP in 1 week Follow up with mortgage analyst in 2 weeks Follow-up with oncologist as [...] PREDNISONE THERAPY WILL BE COORDINATED BY PATIENT'S CERAMIC CAPACITOR PROCESSOR/ONCOLOGIST, documented in this encounter Medications at Time [...] 07/30/2024 10:19 AM CDT Nephrology Progress Note [facility] ASSESSMENT: ALEXX-Probably Prerenal and Immunotherapy [...] MD - 07/29/2024 8:42 PM CDT [facility] PROGRESS NOTE Erwin Hilton is [...] results found for: PHARTERIAL , PO2ART , [id number] , CO2ART , O2ART Lab Results Component [...] LACTICA 1.3 07/23/2024 No results found for: [id number] No results found for: FERRITIN No results found for: GLUCOSEPOCT EKG: EKG 12 LEAD Result Date: 07/24/[address] & T wave abnormality, consider lateral ischemia Abnormal ECG No previous ECGs available Confirmed by Emily Hall ([id number]) on 07/24/2024 9:19:48 AM Imaging: No results found. By: Brayan Petty MD, 07/29/2024 8:42 PM CDT * Urbano Quiñonez MD - 07/29/2024 8:23 AM CDT Nephrology Progress Note [facility] ASSESSMENT: ALEXX-Probably Prerenal and Immunotherapy [...] MD - 07/28/2024 3:33 PM CDT [facility] PROGRESS NOTE Erwin Hilton is [...] results found for: PHARTERIAL , PO2ART , [id number] , CO2ART , O2ART Lab Results Component [...] LACTICA 1.3 07/23/2024 No results found for: [id number] No results found for: FERRITIN No results found for: GLUCOSEPOCT EKG: EKG 12 LEAD Result Date: 07/24/[address] & T wave abnormality, consider lateral ischemia Abnormal ECG No previous ECGs available Confirmed by Emily Hall ([id number]) on 07/24/2024 9:19:48 AM Imaging: No results found. By: Brayan Petty MD, 07/28/2024 3:33 PM CDT * Brayan Petty MD - 07/27/2024 11:00 PM CDT [facility] PROGRESS NOTE Erwin Hilton is [...] results found for: PHARTERIAL , PO2ART , [id number] , CO2ART , O2ART Lab Results Component [...] LACTICA 1.3 07/23/2024 No results found for: [id number] No results found for: FERRITIN No results found for: GLUCOSEPOCT EKG: EKG 12 LEAD Result Date: 07/24/[address] & T wave abnormality, consider lateral ischemia Abnormal ECG No previous ECGs available Confirmed by Emily Hall ([id number]) on 07/24/2024 9:19:48 AM Imaging: US RENAL COMPLETE Result Date: 07/27/2024 IMPRESSION: Normal kidneys. Debris within the bladder. Correlate with urinalysis. By: Brayan Petty MD, 07/27/2024 11:00 PM CDT * Brayan Petty MD - 07/27/2024 11:09 AM CDT Request for Documentation Clarification [facility] Erwin Hilton ; VISIT [id number] Query Response Sent: 07/27/24 11:09 CDT From: [...] fatty liver disease, depression, who presented to [facility] with complaints of persistent dehydration. [...] PAINTER ERWIN Brand Cecile 2000 Patient ID ([facility]) [id number] Indications: Pericardial effusion. Study Date07/26/2024 Technical quality: [...] lbs. BMI (BSA) 41.58 kg/m^2 (2.23 m^2) Mds Rn Bayron Bruno R Room 241 Interpreting Valencia [...] Stuart MD - 07/26/2024 4:13 PM CDT [facility] INPATIENT DAILY PROGRESS NOTE Erwin Hilton [...] results found for: PHARTERIAL , PO2ART , [id number] , CO2ART , O2ART Lab Results Component [...] previous ECGs available Confirmed by Emily Hall ([id number]) on 07/24/2024 9:19:48 AM Imaging: No results [...] this encounter H&P Notes * Esteban Mcgovern, QUEEN PRODUCER, POSTULANT - 07/25/2024 5:55 PM CDT [facility] ADMISSION HISTORY & PHYSICAL HPI: Erwin Hilton is a 24 y.o. female who is known to me from previous admission with a history of melanoma to her left foot status post surgery with skin graft and is and undergoing immunotherapy with oncologist Dr. Finley, history of depression, non alcoholic fatty liver disease, depression, who presented to [facility] with complaints of persistent dehydration. Patient was recently hospitalized here at [facility] from. 07/23-07/24 from nausea vomiting diarrhea causing [...] results found for: PHARTERIAL , PO2ART , [id number] , CO2ART , O2ART No results found [...] with patient and/or family and/or Power of Gun Examiner approximately 16 minutes. Discussed CPR/Intubation/Treatment Goals/Quality of [...] patient and discussed the patient's management with EXPERT WITNESS Esteban Mcgovern. I agree with the history, physical, assessment, and plan as outlined in the attached note. Based on the clinical evolution, we may be able to discharge her today or tomorrow. Ranjan Stuart MD 07/26/2024 11:11 AM CDT documented in this encounter Consult Notes * Urbano Quiñonez MD - 07/28/2024 8:13 AM CDTAssociated Order(s): IP CONSULT TO NEPHROLOGY Nephrology Consult [facility] Reason for Consult: @NEPHROCONSULTREASON@ Requesting [...] 8:13 AM CDT 07/28/2024 * Marion Ch, QUEEN PRODUCER, POSTULANT - 07/26/2024 12:31 PM CDTAssociated Order(s): IP [...] liver disease, depression who presented to [facility] with complaints of persistent dehydration, episodes of [...] Session: Patient declined Stress: Patient Declined (07/25/2024) [place] [place] [employer] - Occupational Stress Questionnaire Feeling of Stress : Patient declined Recent Concern: Stress - Stress Concern Present (06/27/2024) [place] [employer] - Occupational Stress Questionnaire Feeling of Stress : To some extent Social Integration: Patient Declined (07/25/2024) Social Connection and Isolation Panel [NHANES] Frequency of Communication with Friends and Family: Patient declined Frequency of Social Gatherings with Friends and Family: Patient declined Attends Anabaptism Services: Patient declined Active Member of Clubs [...] More than three times a week Attends Anabaptism Services: Never Active Member of Clubs or [...] Session: Patient declined Stress: Patient Declined (07/23/2024) [place] [place] [employer] - Occupational Stress Questionnaire Feeling of Stress : Patient declined Recent Concern: Stress - Stress Concern Present (06/27/2024) [place] [employer] - Occupational Stress Questionnaire Feeling of Stress : To some extent Social Integration: Patient Declined (07/23/2024) Social Connection and Isolation Panel [NHANES] Frequency of Communication with Friends and Family: Patient declined Frequency of Social Gatherings with Friends and Family: Patient declined Attends Anabaptism Services: Patient declined Active Member of Clubs [...] More than three times a week Attends Anabaptism Services: Never Active Member of Clubs or [...] ED Physician in the absence of a gas controller: yes Interpretation: Interpretation: abnormal Rate: ECG rate: [...] technique for this examination. COMPARISON: 06/27/2024 from [facility]. PET-CT 04/03/2024. FINDINGS: The sensitivity for detection [...] Flora Hernandez M.D. TW: JENNY Report ID: [id number] Reading Location: [place] [address] Medical Decision Making Impression: Patient presents with [...] Nell Abraham - 07/30/2024 1:32 PM CDT Process Controls Technician - Transition Arrangements Coordinated Note - Transition Specialists do not coordinate all transitions or aspects of transitions- CONFIRM PATIENT READINESS WITH EVENTS SOLUTIONS CONSULTANT PRIOR TO DISCHARGE Bi Manager notified: yes, notified Rama at the following [...] Nell Abraham - 07/30/2024 1:31 PM CDT Process Controls Technician Coordination Note SUMMARY - Process Controls Technician currently working the potential transition plan(s): 07/29/2024 @ 12:42 PM CDT ([facility], TS) Follow Up Appointment (See detail within the referral type(s) below for information on what is needed to complete coordination Note - the Transition Specialists do not coordinate all transition types - please direct all question regarding hospital transition to the Bi Manager) Readmission risk level (if calculated) is: 3-Medium [...] CDT Case Management Discharge Readiness Note Erwin Preez 's readmission risk level (if calculated) is: 3-Medium High Patient Class: Inpatient Consecutive Inpatient Midnights 4 Actual day(s) of hospital stay (compare to working DRG): 5 Discharge: Final home discharge arrangements: home with no services Mode of transportation at discharge:: Family car Additional Information regarding DC Plan: Patient is returning home without any services Discharge Plan Notification/ Verification Patient's Phone numbers: [phone] (home) Patient's preferred discharge phone number for follow up appointments, etc: (if different from above): N/A Information for bedside nurse to call report and fax PACT Document in Sticky Note?: Not applicable - no external home care agencies or hemodialysis Nursing notified: YES Anil GIRALDO via [employer] chat Decision Maker / Caregiver Information Decision Maker: Patient is assumed to be the medical decision maker Senior Billing Consultant/Application Packaging Specialist Name: Lyndsaytiana Hesster Patient/ Decision Maker and [...] Luz Cruz - 07/29/2024 12:42 PM CDT Process Controls Technician Coordination Note SUMMARY - Process Controls Technician currently working the potential transition plan(s): 07/29/2024 @ 12:42 PM CDT (, TS) Follow Up Appointment (See detail within the referral type(s) below for information on what is needed to complete coordination Note - the Transition Specialists do not coordinate all transition types - please direct all question regarding hospital transition to the Bi Manager) Readmission risk level (if calculated) is: 3-Medium High Primary Care Provider: PCP: KELLEN CHU MD Primary Medical Coverage: [employer] Secondary Medical Coverage: N/A Hospital Follow-Up appointment(s) scheduling status: Appointment to be made closer to discharge * Interdisciplinary - Kaycee Galarza RN - 07/29/2024 10:37 AM CDT I agree with Savanna Andres [facility] Student RN charted assessments. * Interdisciplinary - [...] PM CDT Case Management Patient / Patient Television Maintenance Man Contact Note Erwin Perez 's readmission risk level (if calculated) is: 2-Medium Low Patient Class: Inpatient Consecutive Inpatient Midnights 1 Actual day(s) of hospital stay (compare to working DRG):2 New Consult for Case Management? No Summary: Decision Maker: Patient is assumed to be the medical decision maker Senior Billing Consultant/Application Packaging Specialist Name: Lyndsay Hilton Met with Erwin Perez [...] (compare to working DRG): 1 Reason for Bi ManagerBalancing Machine Operator: Re-hospitalization Erwin Perez is in the hospital [...] usedurable medical equipment at home. She uses [facility] in [facility] to obtain her medications. She has not faced any financial barriers to obtaining her medications. She stated that she remembersto take her medications. She is able to transport herself or her family does if needed. She is established with Kellen Chu as PCP. She has [employer] [facility]. She has not completed a HCPOA [...] Anticipated Discharge Plan: Home 07/26/24 Patient/ patient customer service representative teller's preferences regarding the discharge plan: Home with out services Family/ Caregiver's readiness, willingness and ability to support patient with anticipated community discharge plan: Did not speak with family/caregiver during this contact. SUMMARY (summary of interaction with patient/decision maker, family and interdisciplinary team) Decision Maker: Patient is assumed to be the medical decision maker Senior Billing Consultant/Application Packaging Specialist Name: Lyndsay Hilton By phone, spoke with [...] Outcome: Ongoing (see interventions/notes) Flowsheets (Taken 07/26/2024 5963) Plan of Care Reviewed With: patient Progress: [...] Mutually Develop Transition Plan Flowsheets (Taken 07/25/2024 1655) Current Outpatient/Agency/Support Group: infusion therapy, outpatient Patient/Family Anticipated Services at Transition: outpatient care Patient/Family Anticipates Transition to: home Problem: Electrolyte Imbalance Goal: Electrolyte Balance Outcome: Ongoing (see interventions/notes) Intervention: Monitor and Manage Electrolyte Imbalance Flowsheets (Taken 07/25/2024 1655) Fluid/Electrolyte Management: electrolyte supplement initiated intravenous fluid [...] st Contact Info) Description 11/15/2024 1:00 PM KILN OPERATOR HELPER Lab [facility] Laboratory Services [address] [place] [address] Markus Finley MD [address] [place] [address] 11/15/2024 2:00 PM KILN OPERATOR HELPER Appointment [facility] MRI [address] [place] [address] Markus Finley MD [address] [place] [address] Discharge Disposition: Discharged to home or Selfcare [...] the time period is included. Pathologist [facility] WBC 6.42 4.00 - 12.00 10(3)/mcL 07/30/2024 6:02 AM CDT [facility] RBC 3.97 3.80 - 5.30 10(6)/mcL 07/30/2024 6:02 AM CDT [facility] HEMOGLOBIN (HGB) 11.7(L) 12.0 - 15.8 g/dL 07/30/2024 6:02 AM CDT [facility] HEMATOCRIT (HCT) 34.8(L) 36.0 - 47.0 % 07/30/2024 6:02 AM CDT [facility] MCV 87.7 82.0 - 96.0 fL 07/30/2024 6:02 AM CDT [facility] MCH 29.5 26.0 - 34.0 pg 07/30/2024 6:02 AM T [facility] MCHC 33.6 31.0 - 36.0 g/dL 07/30/2024 6:02 AM [facility] PLATELET COUNT 269 140 - 440 10(3)/[facility] 07/30/2024 6:02 AM T [facility] RDW 13.9 11.8 - 15.5 % 07/30/2024 6:02 AM [facility] MPV 11.0 9.7 - 12.4 fL 07/30/2024 6:02 AM [facility] NEUTROPHILS 85.4(H) 47.0 - 73.0 % 07/30/2024 6:02 AM [facility] LYMPHOCYTES 10.6(L) 18.0 - 42.0 % 07/30/2024 6:02 AM CDT [facility] MONOCYTES 3.7(L) 4.0 - 12.0 % 07/30/2024 6:02 AM [facility] EOSINOPHILS 0.0 0.0 - 5.0 % 07/30/2024 6:02 AM [facility] BASOPHILS 0.3 0.0 - 1.0 % 07/30/2024 6:02 AM CDT [facility] ABSOLUTE NEUTROPHILS 5.48 1.60 - 7.70 10(3)/mcL 07/30/2024 6:02 AM CDT [facility] ABSOLUTE LYMPHOCYTES 0.68(L) 1.30 - 3.20 10(3)/[facility] 07/30/2024 6:02 AM CDT [facility] ABSOLUTE MONOCYTES 0.24 0.20 - 1.00 10(3)/[facility] 07/30/2024 6:02 AM CDT [facility] ABSOLUTE EOSINOPHIL 0.00 0.00 - 0.40 10(3)/[facility] 07/30/2024 6:02 AM CDT [facility] ABSOLUTE BASOPHILS 0.02 0.00 - 0.10 10(3)/[facility] 07/30/2024 6:02 AM CDT [facility] NRBC PER 100 WBC 0 07/30/20 6:02 AM CDT [facility] Blood Venipuncture / Unknown 07/30/2024 4:23 AM CDT 07/30/2024 5:22 AM CDT us Debo Keenan QUEEN PRODUCER, POSTULANT HEMATOLOGY ORDERABLES Final Result [facility] [address] [place] [address] * (ABNORMAL) Basic Metabolic Panel w/ Calcium Total (07/30/2024 4:23 AM CDT) Only the most recent of10 resultswithin the time period is included. SODIUM 133(L) 136 - 145 mmol/L 07/30/2024 5:53 AM CDT [facility] POTASSIUM 3.5 3.5 - 5.1 mmol/L 07/30/2024 5:53 AM CDT [facility] CHLORIDE 96(L) 98 - 107 mmol/L 07/30/2024 5:53 AM CDT [facility] CO2, VENOUS 27 22 - 30 mmol/L 07/30/2024 5:53 AM CDT [facility] ANION GAP 13.5 <18.0 mmol/L 07/30/2024 5:53 AM CDT [facility] GLUCOSE 132(H) 70 - 99 mg/dL 07/30/2024 5:53 AM CDT [facility] BUN 15 5 - 18 mg/dL 07/30/2024 5:53 AM CDT [facility] CREATININE, BLOOD 1.24(H) 0.60 - 1.00 mg/dL 07/30/2024 5:53 AM CDT [facility] BUN/CREATININE RATIO 12 12 - 20 ratio 07/30/2024 5:53 AM CDT [facility] CALCIUM 9.2 8.7 - 10.5 mg/dL 07/30/2024 5:53 AM CDT [facility] GFR, ESTIMATED >60 >=60 07/30/2024 5:53 AM CDT [facility] Comment: Creatinine Clearance is the preferred criteria for selecting drug dose adjustments in renally impaired patients. ??The GFR is provided as additional pertinent clinical information. GFR is reported in mL/min/1.73 sq m. Calculation based on the Chronic Kidney Disease Epidemiology Collaboration (CKD- EPI) equation refit without adjustment for race. GFR, EST. >60 >=60 024 5:53 AM CDT [facility] GFR, EST. NONAFRICAN 53(L) >=60 07/30/2024 5:53 AM CDT [facility] Blood Venipuncture / Unknown 07/30/2024 4:23 AM CDT 07/30/2024 5:22 AM CDT us Debo Keenan QUEEN PRODUCER, POSTULANT CHEMISTRY ORDERABLES Final Result [facility] [address] [place] [address] * RHYTHM STRIP (07/30/2024 12:00 AM CDT) Only the most recent of18 resultswithin the time period is included. 07/30/2024 us Provider Scan IMG ECG ORDERABLES Final Result RESULTING AGENCY * ANA BASURTO RACHID HEPARIN/SST TOP TUBE (07/29/2024 4:30 AM CDT) Blood No Phlebotomy Charged / Unknown 07/29/2024 4:30 AM CDT 07/29/2024 2:56 PM CDT Brayan Kang MD HEMATOLOGY ORDERABLES Final R esult [facility] [address] [place] [address], * Hepatitis Panel Acute (AHP) (07/29/2024 4:30 AM CDT) HEPATITIS A IGM ANTIBODY NON DETECTED NON DETECTED 07/29/2024 3:37 PM CDT [facility] Comment: IGM Antibodies to HAV not detected. ??Does not exclude early acute or recovered HAV infection. HEP B CORE AB (IGM) NON DETECTED NON DETECTED 07/29/2024 3:37 PM CDT [facility] Comment:IGM anti-HBC not det ected. Does not exclude the possibility of exposure to or infection with HBV. HEPATITIS B SURFACE ANTIGEN NON DETECTED NON DETECTED 07/29/2024 3:37 PM CDT [facility] Comment:A nonreactive test r esult does not [...] <1 S/CO 07/29/2024 3:37 PM CDT [facility] Comment: Signal/Cutoff ratio ??< 0.79 is Nondetected Signal/Cutoff ratio 0.80-0.99 is Grayzone Signal/Cutoff ratio > 0.99 is Detected Supplemental assays are recommended if signal/cutoff ratio is >/=1.00. ??Signal/cutoff ratio result >/= 5.00 is 97% predictive of positivity for recombinant immunoblot assay (RIBA) and will be reported to the [place] Department of Public Health as required. Blood Venipuncture / Unknown 07/29/2024 4:30 AM CDT 07/29/2024 5:15 AM CDT Urbano Quiñonez MD HEMATOLOGY ORDERABLES Final Result Performing Organization Address City/[facility]/ZIP Co de Phone Number [facility] [address] [place] [address], [place] * C3 Complement Globulin B-1C (07/29/2024 4:30 AM CDT) C3 COMPLEMENT 133 83 - 193 mg/dL 07/29/2024 3:18 PM CDT [facility] Blood Venipuncture / Unknown 07/29/2024 4:30 AM CDT 07/29/2024 5:15 AM CDT Urbano Quiñonez MD CHEMISTRY ORDERABLES Final Result Performing Organization Address [facility]/ZIP Co de Phone Number [facility] [address] [place] [address], [place] * C4 Complement (07/29/2024 4:30 AM CDT) C4 COMPLEMENT 23 15 - 57 mg/dL 07/29/2024 3:18 PM CDT [facility] Blood Venipuncture / Unknown 07/29/2024 4:30 AM CDT 07/29/2024 5:15 AM CDT Urbano Quiñonez MD CHEMISTRY ORDERABLES Final Result Performing Organization Address City/[facility]/ZIP Co de Phone Number [facility] [address] [place] [address], [place] * ANCA MPO PR3 (07/28/2024 10:15 AM CDT) PROTEINASE 3 AB <0.2 <1.0 AI 12:48 PM CDT [facility] MYELOPEROXIDASE AB <0.2 <1.0 AI 2023 12:48 PM CDT [facility] Blood Venipuncture / Unknown 07/28/2024 10:15 AM CDT 07/28/2024 12:09 PM CDT us Urbano Quiñonez MD IMMUNOLOGY ORDERABLES Final Result Performing Organization Address City/State/[facility] Co de Phone Number [facility] [address] [place] [address], * ANCA IFA SCREEN (07/28/2024 10:15 AM CDT) ANCA IFA SCREEN <1:20 <1:20 titer 07/30/20 24 12:14 PM CDT [facility] Comment: Expected result is < 1:10. ANCA TITER Not Applicable <1:20, Not Applicable titer 07/30/2024 12:14 PM CDT [facility] ANCA PATTERN Not Applicable 07/30/2024 12:14 PM CDT [facility] Comment: Antineutrophil cytoplasmic antibodies (ANCA) are found [...] IMMUNOLOGY ORDERABLES Final Result Performing Organization Address City/[facility]/ZIP Co de Phone Number [facility] [address] [place] [address], [place] * GLOMERULAR BASEMENT MEMBRANE AB, IGG (07/28/2024 10:15 AM CDT) GLOMERULAR BASEMENT MEMBRANE (GBM) <0.2 <1.0 AI 08/07/2024 12:48 PM CDT [facility] Blood Venipuncture / Unknown 07/28/2024 10:15 AM CDT 07/28/2024 12:09 PM CDT Narrative [facility] - 08/07/2024 12:48 PM CDT Antibody testing was performed by multiplex flow immunoassay on the [employer] platform. Urbano Quiñonez MD IMMUNOLOGY ORDERABLES Final Result Performing Organization Address City/[facility] Co de Phone Number [facility] [address] [place] [address], [place] * Hepatitis C Antibody (07/28/2024 10:15 AM CDT) hepatitis C antibody 0.18 <1 S/CO 07/28/2024 10:27 PM CDT [facility] Comment: Signal/Cutoff ratio ??< 0.79 is Nondetected Signal/Cutoff ratio 0.80-0.99 is Grayzone Signal/Cutoff ratio > 0.99 is Detected Supplemental assays are recommended if signal/cutoff ratio is >/=1.00. ??Signal/cutoff ratio result >/= 5.00 is 97% predictive of positivity for recombinant immunoblot assay (RIBA) and will be reported to the [place] Department of Public [facility] as required. Blood Venipuncture / Unknown 07/28/2024 10:15 AM CDT 07/28/2024 12:09 PM CDT Urbano Quiñonez MD CHEMISTRY ORDERABLES Final Result Performing Organization Address [facility] Co de Phone Number [facility] [address] [place] [address], [place] * Antinuclear Antibody (BARRETT), Titer If Pos (07/28/2024 10:15 AM CDT) BARRETT SCREEN Negative Negative titer 07/30/2024 11:28 AM CDT [facility] Comment: Antinuclear autoantibodies not detected by IFA at a 1:80 screening dilution of HEp-2 cells. BARRETT TITER Not Applicable Negative, See comment, Not Applicable titer 07/30/2024 11:28 AM CDT [facility] Comment: Antinuclear autoantibodies not detected by IFA at a 1:80 screening dilution of HEp-2 cells. BARRETT PATTERN NOT APPLICABLE 07/30/2024 11:28 AM CDT [facility] Blood Venipuncture / Unknown 07/28/2024 10:15 AM CDT 07/28/2024 12:09 PM CDT Urbano Quiñonez MD IMMUNOLOGY ORDERABLES Final Result Performing Organization Address [facility] Co de Phone Number [facility] [address] [place] [address], [place] * (ABNORMAL) Ur Protein/Creatinine Ratio (07/28/2024 10:15 AM CDT) UR PROTEIN RAND, QT 170.7 mg/dL 07/28/2024 12:27 PM CDT [facility] Comment:No reference range h as been established. Consider Clinical Correlation. URINE CREATININE 532.6 mg/dL 07/28/2024 12:27 PM CDT [facility] Comment:No reference range h as been established. Consider Clinical Correlation. URINE PROTEIN/CREATIN INE RATIO 0.32(H) <0.25 07/28/2024 12:27 PM CDT [facility] Urine Non-Phlebotomy Collection / Unknown 07/28/2024 10:15 AM CDT 07/28/2024 12:09 PM CDT us Urbano Quiñonez MD URINE ORDERABLES Final Resu lt [facility] [address] [place] [address] * US RENAL COMPLETE (07/27/2024 12:40 PM [...] PM T: ??07/27/2024 12:49 PM Report ID: [id number] Reading Location: ??[id number] Procedure Note Piero Chapman MD - 07/27/2024 [...] Piero Chapman M.D. KN: KHARI Report ID: [id number] Reading Location: [id number] IMPRESSION: Normal kidneys. Debris within the bladder. [...] ?PAINTER ERWIN Brand ?2000 Patient ID (UPI) ?[id number] ? Indications: Pericardial effusion. Study Date07/26/2024 Technical [...] ?BMI (BSA) ?41.58 kg/m^2 (2.23 ? m^2) Mds Rn ?Bayron Joseph Room ? 241 Interpreting ? Valencia ? Referring Physician ?Wale ?Physician ?Isabel ?Emily Procedure Note Emily Hall MD - 07/27/2024 Transthoracic Echocardiography Report (TTE) Patient name PAINTER ERWIN Brand Cecile 2000 Patient ID (UPI) [id number] Indications: Pericardial effusion. Study Date07/26/2024 Technical quality: [...] lbs. BMI (BSA) 41.58 kg/m^2 (2.23 m^2) Mds Rn Bayron Joseph Room 241 Interpreting [facility] Referring Physician Wale Physician Isabel Diaz us Esteban Mcgovern QUEEN PRODUCER, POSTULANT IMG ECHO ORDERABLES Fin al Result * MAGNESIUM (MG) (07/26/2024 12:21 AM CDT) MAGNESIUM 2.2 1.6 - 2.6 mg/dL 07/26/2024 2:22 AM CDT [facility] Blood Venipuncture / Unknown 07/26/2024 12:21 AM CDT 07/26/2024 12:22 AM CDT us Esteban Mcgovern QUEEN PRODUCER, POSTULANT CHEMISTRY ORDERABLES Fi nal Result [facility] [address] [place] [address] * CT ABDOMEN PELVIS W/O CONTRAST (07/25/2024 [...] for this examination. COMPARISON: ?? 06/27/2024 from [facility]. ??PET-CT 04/03/2024. FINDINGS: The sensitivity for detection [...] PM T: ??07/25/2024 12:55 PM Report ID: [id number] Reading Location: ??[id number] Procedure Note Flora Hernandez MD - 07/25/2024 [...] technique for this examination. COMPARISON: 06/27/2024 from [facility]. PET-CT 04/03/2024. FINDINGS: The sensitivity for detection [...] Flora Hernandez M.D. TW: JENNY Report ID: [id number] Reading Location: [id number] IMPRESSION: Fluid-filled colon, without wall thickening or [...] Continued imaging surveillance recommended. Gael Morales MD [place] [facility] ORDERABLES Final Re sult * Critical [...] LEAD (07/25/2024 11:48 AM CDT) Pathologist [facility] Ventricular Rate 125 BPM EXTERNAL EKG Atrial Rate 125 BPM EXTERNAL EKG P-R Interval 142 ms EXTERNAL EKG QRS Duration 86 ms EXTERNAL EKG Q-T Duration 302 ms EXTERNAL EKG QTC CALCULATION 435 ms EXTERNAL EKG P Snook 58 degrees EXTERNAL EKG R Snook 6 degrees EXTERNAL EKG T Snook 131 degrees EXTERNAL EKG 07/25/2024 11:4 8 AM CDT Impressions EXTERNAL EKG - 08/06/2024 1:46 PM CDT Sinus tachycardia Possible Left atrial enlargement Possible Anterior infarct (cited on or before 25-JUL-2024) ST & T wave abnormality, consider lateral ischemia Abnormal ECG When compared with ECG of 23-JUL-2024 08:15, No significant change was found Confirmed by WALE VALENCIA ([id number]) on 07/28/2024 12:15:11 PM Also confirmed by WALE VALENCIA ([id number]), publication editor Jocelyne Hinton ([id number]) ??on 08/06/2024 1:46:44 PM Narrative Procedure Note Wale Valencia MD - 08/06/2024 IMPRESSION: Sinus tachycardia Possible Left atrial enlargement Possible Anterior infarct (cited on or before 25-JUL-2024) ST & T wave abnormality, consider lateral ischemia Abnormal ECG When compared with ECG of 23-JUL-2024 08:15, No significant change was found Confirmed by WALE VALENCIA ([id number]) on 07/28/2024 12:15:11 PM Also confirmed by WALE VALENCIA ([id number]), publication editor Jocelyne Hinton ([id number])on 08/06/2024 1:46:44 PM Gael Morales MD IMG ECG ORDERABLES Final R esult Performing Organization Address [facility] Co de Phone Number EXTERNAL EKG * EKG SCAN (07/25/2024 12:00 AM CDT) 07/25/2024 us Provider Scan IMG ECG ORDERABLES Final Result Performing Organization Address [facility] Co de Phone Number RESULTING AGENCY * Hemoglobin A1C w/ Estimated Glucose (07/24/2024 5:48 AM CDT) HGB-A1C 5.5 4.0 - 6.0 % 07/26/2024 12:49 AM CDT [facility] Est Average Glucose 111.2 mg/dL 07/26/2024 12:49 AM CDT [facility] Blood Venipuncture / Unknown 07/24/2024 5:48 AM CDT 07/24/2024 7:07 AM CDT Narrative [facility] - 07/26/2024 12:49 AM CDT HEMOGLOBIN A1C: DIABETIC PATIENTS: WELL-CONTROLLED: ?? 6.2 - 7.0 INTERMEDIATE WELL-CONTROLLED: ??7.0 - 9.0 POORLY-CONTROLLED: ??>9.0 Esteban Mcgovern QUEEN PRODUCER, POSTULANT CHEMISTRY ORDERABLES Fi nal Result Performing Organization Address [facility] de Phone Number [facility] [address] [place] [address] documented in this encounter Visit Diagnoses Diagnosis [...] taking oral intake without complications and both PO/MA orders are active, administer through the oral route. acetaminophen (TYLENOL) tablet 650 mg 650 mg, Oral, EVERY 4 HOURS PRN, Starting on Tue07/25/24 at 1748, Until Tue07/30/24 at 1739, Mild pain or more severe pain if patient requests, Fever, If patient is taking oral intake without complications and both PO/MA orders are active, administer through the oral [...] taking oral intake without complications and both PO/MA orders are active, administer through the oral route. acetaminophen (TYLENOL) tablet 650 mg(Linked Group 1) 650 mg, Oral, EVERY 4 HOURS PRN, Starting on Tue07/25/24 at 1748, Until Tue07/30/24 at 1739, Mild pain or more severe pain if patient requests, Fever, If patient is taking oral intake without complications and both PO/MA orders are active, administer through the oral [...] taking oral intake without complications and both PO/MA orders are active, administer through the oral route. Or acetaminophen (TYLENOL) suppository 650 mgJump to med 650 mg, Rectal, EVERY 4 HOURS PRN, Starting on Tue07/25/24 at 1748, Until Tue07/30/24 at 1739, Mild pain or more severe pain if patient requests, Fever, If patient is taking oral intake without complications and both PO/MA orders are active, administer through the oral [...] medications. documented in this encounter Care Teams Distribution System Operator Relationship Specialty Start Date End Date Kellen Chu MD [address] [address] PCP - General Family Medicine 04/18/24 Markus Finley MD [address] [place] [address] Consulting Physician Medical Oncology 04/18/24 documented as of this encounter
--- OUTSIDE RECORDS SUMMARY | 2024-10-27 03:40 | XMS_ITS | Encounter Summary ---
Author Organization [facility] Address [address] [facility] [place] [address] Phone Care Team Providers Care Spanish Moss Picker Name Role Phone Pritesh Chu MD Primary Care Provider [phone] Markus Finley MD Unavailable [phone] Encounter Details Date Type Department Care Team (Late st Contact Info) Description 08/14/2024 Telephone [facility] Oncology Services [address] [place] [phone] Markus Finley MD [address] [place] [address] Social History Tobacco Use Types Packs/Day Years Used Date Smoking Tobacco: Former Cigarettes 0.5 8.5 S tarted: 04/18/2016 Smokeless Tobacco: Never Alcohol Use Standard Drinks/Week Comments Yes 0 (1 standard drink = 0.6 oz pur e alcohol) [facility] Utilities Answer Date Recorded [...] How often do you attend latter-day or mormon serv ices? Patient declined 08/01/2024 [...] [facility] [...] packets. Prescriptions for both medications sent to [facility] documented in this encounter Plan of Treatment Upcoming Encounters Date Type Department Care Team (Late st Contact Info) Description 11/15/2024 1:00 PM [facility]PER [facility] [address] [place] [address] Markus Finley MD [address] [place] [address] 11/15/2024 2:00 PM CLAMPER [facility]ment [facility] [address] [place] [address] Markus Finley MD [address] [place] [address] Discharge Disposition: Discharged to home or Selfcare documented as of this encounter Visit Diagnoses Not on filedocumented in this encounter Care Teams Spanish Moss Picker Relationship Specialty Start Date End Date Pritesh Chu MD [address] [place] [address] PCP - General Family Medicine 04/18/24 Markus Finley MD [address] [place] [address] Consulting Physician Medical Oncology 04/18/24 documented as of this encounter
--- OUTSIDE RECORDS SUMMARY | 2024-10-27 03:40 | XMS_ITS | Encounter Summary ---
Author Organization [facility] Address [address] [facility] [place] [address] Phone Care Team Providers Care Top Bottom Attaching Machine Operator Name Role Phone Pritesh Chu MD Primary Care Provider [phone] Markus Finley MD Unavailable [phone] Encounter Details Date Type Department Care Team (Late st Contact Info) Description 08/16/2024 Telephone [facility] On[facility] Services [address] [place] [phone] Markus Finley MD [address] [place] [address] Social History Tobacco Use Types Packs/Day Years Used Date Smoking Tobacco: Former Cigarettes 0.5 8.5 S tarted: 04/18/2016 Smokeless Tobacco: Never Alcohol Use Standard Drinks/Week Comments Yes 0 (1 standard drink = 0.6 oz pur e alcohol) [facility] Utilities Answer Date Recorded In the [...] How often do you attend moravian or shinto serv ices? Patient declined 08/01/2024 Do you [...] st Contact Info) Description 11/15/2024 1:00 PM SCHOOL EXAMINER Lab [facility] Laboratory Services [address] [place] [address] Markus Finley MD [address] [place] [address] 11/15/2024 2:00 PM SCHOOL EXAMINER Appointment [facility] MRI [address] [place] [address] Markus Finley MD [address] [place] [address] Discharge Disposition: Discharged to home or Selfcare documented as of this encounter Visit Diagnoses Not on filedocumented in this encounter Care Teams Top Bottom Attaching Machine Operator Relationship Specialty Start Date End Date Pritesh Chu MD [address] [address] PCP - General Family Medicine 04/18/24 Markus Finley MD [address] [place] [address] Consulting Physician Medical Oncology 04/18/24 documented as of this encounter
--- OUTSIDE RECORDS SUMMARY | 2024-10-27 03:40 | XMS_ITS | Encounter Summary ---
Author Organization [employer] Care Team Providers Care Tapper Helper Name Role Phone Pritesh Chu MD Primary Care Provider [phone] Markus Finley MD Unavailable [phone] Encounter Details Date Type Department Care Team (Latest Contact Info) Description 08/13/2024 Travel Social History Tobacco Use Types Packs/Day Years Used Date Smoking Tobacco: Former Cigarettes 0.5 8.5 S tarted: 04/18/2016 Smokeless Tobacco: Never Alcohol Use Standard Drinks/Week Comments Yes 0 (1 standard drink = 0.6 oz pur e alcohol) [facility] Utilities Answer Date Recorded In the past 12 months has [employer], gas, oil, or water [employer] threatened to shut off services in your home? Patient declined 08/01/2024 Social Connection and Isolation Panel [NHANES] A nswer Date Recorded In a typical week, how many times do you talk on the phone with family, friends, or neighbors? Patient declined 08/01/2024 How often do you get togethe r with friends or relatives? Patient declined 08/01/2024 How often do you attend nondenominational or judaism serv ices? Patient declined 08/01/2024 [...] medical care, and heating? Patient declined 08/01/2024 [facility] Occup[facility] ional [facility] - Occupational [...] st Contact Info) Description 11/15/2024 1:00 PM HORTICULTURAL FARMWORKER Lab [facility] [address] [place] [address] Markus Finley MD [address] [place] [address] 11/15/2024 2:00 PM HORTICULTURAL FARMWORKER [facility]ment [facility] [address] [place] [address] Markus Finley MD [address] [place] [address] Discharge Disposition: Discharged to home or Selfcare documented as of this encounter Visit Diagnoses Not on filedocumented in this encounter Care Teams Tapper Helper Relationship Specialty Start Date End Date Pritesh Chu MD [address] [place] [address] PCP - General Family Medicine 04/18/24 Markus Finley MD [address] [place] [address] Consulting Physician Medical Oncology 04/18/24 documented as of this encounter
--- OUTSIDE RECORDS SUMMARY | 2024-10-27 03:40 | XMS_ITS | Encounter Summary ---
Author Organization [facility] Address [address] [facility] [place] [address] Phone Care Team Providers Care Keyboard Specialist Name Role Phone Pritesh Chu MD Primary Care Provider [phone] Markus Finley MD Unavailable [phone] Reason for Referral * Radiology Services (Routine) - Closed Specialty Diagnoses / Procedures Referred By Delbert villareal Referred To Contact Radiology Diagnoses Metastatic melanoma (HCC) Procedures PET CT TUMOR IMAGING WHOLE BODY Markus Finley MD [address] [place] [address] Phone: tel: fax: Referral ID Status Reason Start Date Expiration Date Visits Re quested Visits Authorized [id number] Closed 08/06/2024 1 1 Reason for Visit * Radiology Services (Routine) - Closed Specialty Diagnoses / Procedures Referred By Delbert villareal Referred To Contact Radiology Diagnoses Metastatic melanoma (HCC) Procedures PET CT TUMOR IMAGING WHOLE BODY Markus Finley MD [address] [place] [address] Phone: tel: fax: Referral ID Status Reason Start Date Expiration Date Visits Re quested Visits Authorized [id number] Closed 08/06/2024 1 1 Encounter Details Date Type Department Care Team (Latest Contact Info) Description 08/15/2024 11:35 AM CDT - 08/15/2024 11:59 PM CDT Hospital Encounter [facility] PET [address] [place] [address] Markus Finley MD [address] [place] [address] Discharge Disposition: Discharged to home or Selfcare Social History Tobacco Use Types Packs/Day Years Used Date Smoking Tobacco: Former Cigarettes 0.5 8.5 S tarted: 04/18/2016 Smokeless Tobacco: Never Alcohol Use Standard Drinks/Week Comments Yes 0 (1 standard drink = 0.6 oz pur e alcohol) [facility] Utilities Answer Date Recorded In the past 12 months has [employer], gas, oil, or water [employer] threatened to shut off services in your home? Patient declined 08/01/2024 Social Connection and Isolation Panel [NHANES] A nswer Date Recorded In a typical week, how many times do you talk on the phone with family, friends, or neighbors? Patient declined 08/01/2024 How often do you get togethe r with friends or relatives? Patient declined 08/01/2024 How often do you attend yazdanism or yazdanism serv ices? Patient declined 08/01/2024 Do you [...] [facility] of Occupat ional [facility] - Occupational Stress Questionnaire Answer Date [...] any time in the past [address] [facility], were you homeless or living [...] IV fluids normal saline daily via port. [address] mL 08/03/2024 4 sulfamethoxazole- trimethoprim DS (BACTRIM DS, SEPTRA DS) 800-160 MG TabletIndications :Metastatic melanoma (HCC) Take 1 Tablet by mouth 2 times daily for 10 doses. 10 Tablet 08/10/2024 4 documented as of this encounter Plan of Treatment Upcoming Encounters Date Type Department Care Team (Late st Contact Info) Description 11/15/2024 1:00 PM SALES PROPERTY MANAGER Lab [facility] [address] [place] [address] Markus Finley MD [address] [place] [address] 11/15/2024 2:00 PM SALES PROPERTY MANAGER [facility]ment [facility] [address] [place] [address] Markus Finley MD [address] [place] [address] Discharge Disposition: Discharged to home or Selfcare [...] AM T: ??08/16/2024 11:30 AM Report ID: [id number] Reading Location: ??[id number] Procedure Note Zachariah Carrizales MD - 08/16/2024 [...] Zachariah Carrizales M.D. LB: KRUNAL Report ID: [id number] Reading Location: [place] [address] IMPRESSION: Hypermetabolic left inguinal lymph node measuring [...] Dose documented in this encounter Care Teams Keyboard Specialist Relationship Specialty Start Date End Date Pritesh Chu MD [address] [address] PCP - General Family Medicine 04/18/24 Markus Finley MD [address] [place] [address] Consulting Physician Medical Oncology 04/18/24 documented as of this encounter
--- OUTSIDE RECORDS SUMMARY | 2024-10-27 03:40 | XMS_ITS | Encounter Summary ---
Author Organization [facility] Address [address] [facility] [place] [address] Phone Care Team Providers Care Nurses Educator Name Role Phone Pritesh Chu MD Primary Care Provider [phone] Markus Finley MD Unavailable [phone] Reason for Visit * Reason Comments Follow-up Melanoma Encounter Details Date Type Department Care Team (Latest Contact Info) Description 08/01/2024 2:20 PM CDT [facility] [address] [place] [phone] Markus Finley MD [address] [place] [address] Other specified hypothyroidism (Primary Dx); Diarrhea due [...] How often do you attend sabianist or jainism serv ices? Patient declined 08/01/2024 [...] declined 08/01/2024 [facility] - [...] performance status. Patient was recently admitted to [facility] from 07/25/24 through 07/30/24 for ALEXX and [...] IMAGING STUDIES: CT abdomen pelvis done at [facility] on 06/27/2024 No evidence of appendicitis. No [...] Plan: 2. Patient will be transported to [facility] ED for evaluation and activation of sepsis [...] called Chris. Patient was recently admitted to [facility] from 07/25/24 through 07/30/24 for AKIand hypokalemia [...] IMAGING STUDIES: CT abdomen pelvis done at [facility] on 06/27/2024 No evidence of appendicitis. No [...] hours 2. Patient will be transported to [facility] ED for evaluation and activation of sepsis [...] Info) Description 11/15/2024 1:00 PM MORTGAGE LOAN FUNDER Lab [facility] [address] [place] [address] Markus Finley MD [address] [place] [address] 11/15/2024 2:00 PM MORTGAGE LOAN FUNDER [facility] 1 [place] [address] Markus Finley MD [address] [place] [address] Discharge Disposition: Discharged to home or Selfcare [...] documented as of this encounter Care Teams Nurses Educator Relationship Specialty Start Date End Date Pritesh Chu MD [address] [place] [address] PCP - General Family Medicine 04/18/24 Markus Finley MD [address] [place] [address] Consulting Physician Medical Oncology 04/18/24 documented as of this encounter
--- OUTSIDE RECORDS SUMMARY | 2024-10-27 03:40 | XMS_ITS | Encounter Summary ---
Author Organization [employer] Care Team Providers Care Wire Insulator Name Role Phone Pritesh Chu MD Primary Care Provider [phone] Markus Finley MD Unavailable [phone] Encounter Details Date Type Department Care Team [...] Recorded In the past 12 months has [employer], gas, oil, or water [employer] threatened to shut off services in your home? Patient declined 08/01/2024 Social Connection and Isolation Panel [NHANES] A nswer Date Recorded In a typical week, how many times do you talk on the phone with family, friends, or neighbors? Patient declined 08/01/2024 How often do you get togethe r with friends or relatives? Patient declined 08/01/2024 How often do you attend synagogue or zoroastrian serv ices? Patient declined 08/01/2024 [...] medical care, and heating? Patient declined 08/01/2024 [facility] of Occupat ional [facility] - [...] st Contact Info) Description 11/15/2024 1:00 PM COMPRESSOR ASSEMBLER Lab [facility] [address] [place] [address] Markus Finley MD [address] [place] [address] 11/15/2024 2:00 PM COMPRESSOR ASSEMBLER [facility] [address] [place] [address] Markus Finley MD [address] [place] [address] Discharge Disposition: Discharged to home or Selfcare documented as of this encounter Visit Diagnoses Not on filedocumented in this encounter Care Teams Wire Insulator Relationship Specialty Start Date End Date Pritesh Chu MD [address] [place] [address] PCP - General Family Medicine 04/18/24 Markus Finley MD [address] [place] [address] Consulting Physician Medical Oncology 04/18/24 documented as of this encounter
--- OUTSIDE RECORDS SUMMARY | 2024-10-27 03:40 | XMS_ITS | Encounter Summary ---
Author Organization [facility] Address [address] [place] [address] Phone Care Team Providers Care Trainer Name Role Phone Pritesh Chu MD Primary Care Provider [phone] Markus Finley MD Unavailable [phone] Encounter Details Date Type Department Care Team (Late st Contact Info) Description 07/25/2024 [facility] Discharge [facility]up [facility] Nursing Services [address] [place] [address] Arline Rojo, RN [place] Social History Tobacco Use Types Packs/Day Years Used Date Smoking Tobacco: Former Cigarettes 0.5 8.5 S tarted: 04/18/2016 Smokeless Tobacco: Never Alcohol Use Standard Drinks/Week Comments Yes 0 (1 standard drink = 0.6 oz pur e alcohol) [facility] Utilities Answer Date Recorded In the past 12 months has [employer] electric, gas, oil, or water company threatened [...] declined 07/25/2024 How often do you attend pentecostalism or zoroastrian serv ices? Patient declined 07/25/2024 [...] medical care, and heating? Patient declined 07/[facility]/2024 [facility] - [facility] [...] st Contact Info) Description 11/15/2024 1:00 PM RAILROAD COOK Lab [facility] [address] [place] [address] Markus Finley MD [address] [place] [address] 11/15/2024 2:00 PM RAILROAD COOK Appointment [facility] MRI 1 [place] [address] Markus Finley MD [address] [place] [address] Discharge Disposition: Discharged to home or Selfcare documented as of this encounter Visit Diagnoses Not on filedocumented in this encounter Care Teams Trainer Relationship Specialty Start Date End Date Pritesh Chu MD [address] [place], [place] [id number] PCP - General Family Medicine 04/18/24 Markus Finley MD [address] [place] [address] Consulting Physician Medical Oncology 04/18/24 documented as of this encounter
--- OUTSIDE RECORDS SUMMARY | 2024-10-27 03:40 | XMS_ITS | Encounter Summary ---
Author Organization [facility] Address [address] [place] [address] Phone Care Team Providers Care Leather Patcher Name Role Phone Pritesh Chu MD Primary Care Provider Markus Finley MD Unavailable [phone] Reason for Visit * Reason Onset Date Comments Follow-up 08/06/2024 Encounter Details Date Type Department Care Team (Late st Contact Info) Description 08/06/2024 [facility] Nursing Services [address] [place] [address] Arline Rojo, RN [place] Social History Tobacco Use Types Packs/Day Years Used Date Smoking Tobacco: Former Cigarettes 0.5 8.5 S tarted: 04/18/2016 Smokeless Tobacco: Never Alcohol Use Standard Drinks/Week Comments Yes 0 (1 standard drink = 0.6 oz pur e alcohol) [facility] Utilities Answer Date Recorded In [...] How often do you attend nondenominational or hinduism serv ices? Patient declined 08/01/2024 [...] 08/01/2024 [facility] Occupat ional [facility] - Occupational Stress Questionnaire Answer Date Recorded [...] st Contact Info) Description 11/15/2024 1:00 PM EMPLOYEE BENEFITS ADMINISTRATOR Lab [facility] [address] [place] [address] Markus Finley MD [address] [place] [address] 11/15/2024 2:00 PM EMPLOYEE BENEFITS ADMINISTRATOR [facility]ment [facility] [address] [place] [address] Markus Finley MD [address] [place] [address] Discharge Disposition: Discharged to home or Selfcare documented as of this encounter Visit Diagnoses Not on filedocumented in this encounter Care Teams Leather Patcher Relationship Specialty Start Date End Date Pritesh Chu MD [address] [address] PCP - General Family Medicine 04/18/24 Markus Finley MD [address] [place] [address] Consulting Physician Medical Oncology 04/18/24 documented as of this encounter
--- OUTSIDE RECORDS SUMMARY | 2024-10-27 03:40 | XMS_ITS | Encounter Summary ---
Author Organization [email or web address] Care Team Providers Care Biomedical Repair Technician Name Role Phone Pritesh Chu MD Primary Care Provider [phone] Markus Finley MD Unavailable [phone] Encounter Details Date Type Department Care Team (Latest Contact Info) Description 08/20/2024 Travel Social History Tobacco Use Types Packs/Day Years Used Date Smoking Tobacco: Former Cigarettes 0.5 8.5 S tarted: 04/18/2016 Smokeless Tobacco: Never Alcohol Use Standard Drinks/Week Comments Yes 0 (1 standard drink = 0.6 oz pur e alcohol) [facility] Utilities Answer Date Recorded In the past 12 months has [employer], gas, oil, or water [employer] threatened to shut off services in your home? Patient declined 08/01/2024 Social Connection and Isolation Panel [NHANES] A nswer Date Recorded In a typical week, how many times do you talk on the phone with family, friends, or neighbors? Patient declined 08/01/2024 How often do you get togethe r with friends or relatives? Patient declined 08/01/2024 How often do you attend adventist or nondenominational serv ices? Patient declined 08/01/2024 [...] 08/01/2024 [facility] of Occupat ional [facility] - Occupational Stress Questionnaire Answer [...] st Contact Info) Description 11/15/2024 1:00 PM DOG SITTER [facility] [address] [place] [address] Markus Finley MD [address] [place] [address] 11/15/2024 2:00 PM DOG SITTER [facility]ment [facility] [address] [place] [address] Markus Finley MD [address] [place] [address] Discharge Disposition: Discharged to home or Selfcare documented as of this encounter Visit Diagnoses Not on filedocumented in this encounter Care Teams Biomedical Repair Technician Relationship Specialty Start Date End Date Pritesh Chu MD [address] [address] PCP - General Family Medicine 04/18/24 Markus Finley MD [address] [place] [address] Consulting Physician Medical Oncology 04/18/24 documented as of this encounter
--- OUTSIDE RECORDS SUMMARY | 2024-10-27 03:40 | XMS_ITS | Encounter Summary ---
Author Organization [employer] Care Team Providers Care Graphic Engineer Name Role Phone Pritesh Chu MD Primary Care Provider [phone] Markus Finley MD Unavailable [phone] Encounter Details Date Type Department Care Team (Latest Contact Info) Description 07/23/2024 Travel Social History Tobacco Use Types Packs/Day Years Used Date Smoking Tobacco: Former Cigarettes 0.5 8.5 S tarted: 04/18/2016 Smokeless Tobacco: Never Alcohol Use Standard Drinks/Week Comments Yes 0 (1 standard drink = 0.6 oz pur e alcohol) [facility] Utilities Answer Date Recorded In the past 12 months has [employer], gas, oil, or water [employer] threatened to shut off services in your home? Patient declined 07/23/2024 Social Connection and Isolation Panel [NHANES] A nswer Date Recorded In a typical week, how many times do you talk on the phone with family, friends, or neighbors? Patient declined 07/23/2024 How often do you get togethe r with friends or relatives? Patient declined 07/23/2024 How often do you attend voodoo or faith serv ices? Patient declined 07/23/2024 [...] medical care, and heating? Patient declined 07/23/2024 [facility] of Occupat ional Health - Occupational Stress [...] in a usp (including now)? Patient declined 07/23/2024 Comments No [...] st Contact Info) Description 11/15/2024 1:00 PM MENTALLY RETARDED TEACHER [facility] 1 [facility] [place] [address] Markus Finley MD [address] [place] [address] 11/15/2024 2:00 PM MENTALLY RETARDED TEACHER [facility]ment [facility] 1 [place] [address] Markus Finley MD [address] [place] [address] Discharge Disposition: Discharged to home or Selfcare documented as of this encounter Visit Diagnoses Not on filedocumented in this encounter Additional Health Concerns Infection Onset Date Last Indicated Resolved Time COVID - 19 07/23/2024 07/23/2024 07/23/2024 10:3 8 AM CDT C. difficile Rule-Out 07/23/2024 07/24/20242023 1:43 AM CDT documented as of this encounter Care Teams Graphic Engineer Relationship Specialty Start Date End Date Pritesh Chu MD [address] [place], [place] [id number] PCP - General Family Medicine 04/18/24 Markus Finley MD [address] [place] [address] Consulting Physician Medical Oncology 04/18/24 documented as of this encounter
--- OUTSIDE RECORDS SUMMARY | 2024-10-27 03:40 | XMS_ITS | Encounter Summary ---
Author Organization [facility] Address [address] [facility] [place] [address] Phone Care Team Providers Care Banquet Attendant Name Role Phone Pritesh Chu MD Primary Care Provider [phone] Markus Finley MD Unavailable [phone] Encounter Details Date Type Department Care Team (Late st Contact Info) Description 08/13/2024 11:30 AM CDT Clinical Support [facility] Oncology Services [address] [place] [id number] Markus Finley MD [address] [place] [address] Acute renal failure, unspecified acute renal failure [...] th e electric, gas, oil, or water [employer] threatened to shut off services in your home? Patient declined 08/01/2024 Social Connection and Isolation Panel [NHANES] A nswer Date Recorded In a typical week, how many times do you talk on the phone with family, friends, or neighbors? Patient declined 08/01/2024 How often do you get togethe r with friends or relatives? Patient declined 08/01/2024 How often do you attend adventism or evangelical serv ices? Patient declined 08/01/2024 [...] care, and heating? Patient declined 08/01/2024 [facility] - Occupational Stress Questionnaire [...] st Contact Info) Description 11/15/2024 1:00 PM HOSTESS Lab [facility] [address] [place] [address] Markus Finley MD [address] [place] [address] 11/15/2024 2:00 PM HOSTESS Appointment [facility] 1 [place] [address] Markus Finley MD [address] [place] [address] Discharge Disposition: Discharged to home or Selfcare documented as of this encounter Procedures Procedure Name Priority Date/Time Associated Diagnosis Comments CMP (COMPREHENSIVE METABOLIC PANEL) STAT 08/13/2024 11:39 AM CDT Metastatic melanoma (HCC) documented in this encounter Results * (ABNORMAL) CMP (COMPREHENSIVE METABOLIC PANEL) (08/13/2024 11:39 AM CDT) SODIUM 132(L) 136 - 145 mmol/L 08/13/2024 12:47 PM [facility]T [facility] POTASSIUM 3.8 3.5 - 5.1 mmol/L 08/13/2024 12:47 PM CDT [facility] CHLORIDE 99 98 - 107 mmol/L 08/13/2024 12:47 PM CDT [facility] CO2, VENOUS 26 22 - 30 mmol/L 08/13/2024 12:47 PM CDT [facility] ANION GAP 10.8 <18.0 mmol/L 08/13/2024 12:47 PM CDT [facility] GLUCOSE 127(H) 70 - 99 mg/dL 08/13/2024 12:47 PM CDT [facility] BUN 16 5 - 18 mg/dL 08/13/2024 12:47 PM T [facility] CREATININE, BLOOD 0.88 0.60 - 1.00 mg/dL 08/13/2024 12:47 PM T [facility] BUN/CREATININE RATIO 18 12 - 20 ratio 08/13/2024 12:47 PM [facility] TOTAL PROTEIN 6.2(L) 6.3 - 8.2 g/dL 08/13/2024 12:47 PM CDT [facility] ALBUMIN 3.7 3.5 - 5.0 g/dL 08/13/2024 12:47 PM [facility] A/G RATIO 1.5 1.0 - 2.2 08/13/2024 12:47 PM T [facility] CALCIUM 8.9 8.7 - 10.5 mg/dL 08/13/2024 12:47 PM T [facility] T BILI 0.7 0.2 - 1.2 mg/dL 08/13/2024 12:47 PM [facility] SGOT (AST) 17 5 - 34 U/L 08/13/2024 12:47 PM [facility] SGPT (ALT) 62(H) 0 - 55 U/L 08/13/2024 12:47 PM [facility] ALKALINE PHOSPHATASE 75 40 - 150 U/L 08/13/2024 12:47 PM [facility] IS THE PATIENT REQUIRED TO BE FASTING? No 08/13/2024 12:47 PM T [facility] GFR, ESTIMATED >60 >=60 08/13/2024 12:47 PM [facility] Comment: Creatinine Clearance is the preferred criteria for selecting drug dose adjustments in renally impaired patients. ??The GFR is provided as additional pertinent clinical information. GFR is reported in mL/min/1.73 sq m. Calculation based on the Chronic Kidney Disease Epidemiology Collaboration (CKD- EPI) equation refit without adjustment for race. GFR, EST. >60 >=60 024 12:47 PM CDT [facility] GFR, EST. NONAFRICAN >60 >=60 08/13/2024 12:47 PM CDT [facility] Blood Sub-Q Port Venou s Access Device (Medi-Port, Implanted Port) / Unknown 08/13/2024 11:39 AM CDT 08/13/2024 11:39 AM CDT us Markus Finley MD CHEMISTRY ORDERABLES Fin al Result [facility] #[address] [place] [address] documented in this encounter Visit Diagnoses Diagnosis [...] Units documented in this encounter Care Teams Banquet Attendant Relationship Specialty Start Date End Date Pritesh Chu MD [address] [address] PCP - General Family Medicine 04/18/24 Markus Finley MD [address] [place] [address] Consulting Physician Medical Oncology 04/18/24 documented as of this encounter
--- OUTSIDE RECORDS SUMMARY | 2024-10-27 03:40 | XMS_ITS | Encounter Summary ---
Author Organization [facility] Address [address] [facility] [address] Phone Care Team Providers Care Event Security Officer Name Role Phone Pritesh Chu MD Primary Care Provider [phone] Markus Finley MD Unavailable [phone] Encounter Details Date Type Department Care Team (Late st Contact Info) Description 07/25/2024 10:30 AM CDT Clinical Support [facility] Oncology Services [address] [place] [phone] Markus Finley MD [address] [place] [address] Metastatic melanoma (HCC) (Primary Dx) Discharge Disposition: [...] Recorded In the past 12 months has [employer], gas, oil, or water [employer] threatened to shut off services in your home? Patient declined 07/25/2024 Social Connection and Isolation Panel [NHANES] A nswer Date Recorded In a typical week, how many times do you talk on the phone with family, friends, or neighbors? Patient declined 07/25/2024 How often do you get togethe r with friends or relatives? Patient declined 07/25/2024 How often do you attend mormon or amish serv ices? Patient declined 07/25/2024 Do you [...] medical care, and heating? Patient declined 07/25/2024 [facility] of Occupat ional Health - Occupational [...] health care facility (including now)? Patient declined 07/25/2024 Comments No [...] for since Tuesday. Pt was admitted to [facility] and discharged yesterday. Pt is not feeling any better, unable to eat or drink. Labs drawn from port x1 attempt. Flushed easily with NS and with good blood return. Orders for 1L IVF and antiemetics placed per [facility]. Critical potassium 2.5 called to infusion [...] st Ronald Info) Description 11/15/2024 1:00 PM OYSTER OPENER Lab [facility] Laboratory Services [address] [place] [address] Markus Finley MD [address] [place] [address] 11/15/2024 2:00 PM OYSTER OPENER Appointment [facility] MRI 1 [place] [address] Markus Finley MD [address] [place] [address] Discharge Disposition: Discharged to home or Selfcare [...] 1.0 % 07/25/2024 11:29 AM CDT [facility] NEUTROPHILS % 72.0 47.0 - 73.0 % 07/25/2024 11:29 AM CDT [facility] LYMPHOC[facility] % 19.0 18.0 - 42.0 % 07/25/2024 11:29 AM CDT [facility] MONOCYTES % 8.0 4.0 - 12.0 % 07/25/2024 11:29 AM CDT [facility] NEUTROPHILS ABSOLUTE 7.01 1.60 - 7.70 10(3)/[facility] 07/25/2024 11:29 AM CDT [facility] LYMPHOCYTES ABSOLUTE 1.82 1.30 - 3.20 10(3)/mcL 07/25/2024 11:29 AM CDT [facility] MONOCYTES ABSOLUTE 0.77 0.20 - 1.00 10(3)/[facility] 07/25/2024 11:29 AM CDT [facility] TOXIC GRANULATION 107/25/2024 11:29 AM CDT [facility] VACUOLATED PMN 107/25/2024 11:29 AM CDT [facility] LARGE PLATELETS 11:29 AM CDT [facility] RBC MORPH STATUS Normal 07/25/20 11:29 AM CDT [facility] Blood Sub-Q Port Venou s Access Device (Medi-Port, Implanted Port) / Unknown 07/25/2024 11:02 AM CDT 07/25/2024 11:02 AM CDT us Markus Finley MD HEMATOLOGY ORDERABLES Fi nal Result [facility] [address] [place] [address] * (ABNORMAL) CBC WITH AUTO DIFFERENTIAL (07/25/2024 11:02 AM CDT) WBC 9.60 4.00 - 12.00 10(3)/mcL 07/25/2024 11:29 AM CDT [facility] RBC 5.98(H) 3.80 - 5.30 10(6)/[facility] 07/25/2024 11:29 AM CDT [facility] HEMOGLOBIN (HGB) 17.6(H) 12.0 - 15.8 g/dL 07/25/2024 11:29 AM CDT [facility] HEMATOCRIT (HCT) 50.8(H) 36.0 - 47.0 % 07/25/2024 11:29 AM CDT [facility] MCV 84.9 82.0 - 96.0 fL 07/25/2024 11:29 AM CDT [facility] MCH 29.4 26.0 - 34.0 pg 07/25/2024 11:29 AM CDT [facility] MCHC 34.6 31.0 - 36.0 g/dL 07/25/2024 11:29 AM CDT [facility] PLATELET COUNT 401 140 - 440 10(3)/mcL 07/25/2024 11:29 AM CDT [facility] RDW 14.4 11.8 - 15.5 % 07/25/2024 11:29 AM CDT [facility] MPV 9.6(L) 9.7 - 12.4 fL 07/25/2024 11:29 AM CDT [facility] NRBC PER 100 WBC 0 07/25/2024 11:29 AM CDT [facility] RESULTS ARE CONSISTENT WITH PERIPHERAL SMEAR REVIEW Yes 07/25/2024 11:29 AM CDT [facility] Blood Sub-Q Port Venou s Access Device (Medi-Port, Implanted Port) / Unknown 07/25/2024 11:02 AM CDT 07/25/2024 11:02 AM CDT us Markus Finley MD HEMATOLOGY ORDERABLES Fi nal Result [facility] [address] [place] [address] * (ABNORMAL) THYROID STIMULATING HORMONE (TSH) (07/25/2024 11:02 AM CDT) TSH 135.164(H) 0.300 - 5.000 mIU/L 07/25/2024 12:22 PM CDT [facility] Blood Sub-Q Port Venou s Access Device (Medi-Port, Implanted Port) / Unknown 07/25/2024 11:02 AM CDT 07/25/2024 11:02 AM CDT Markus Finley MD CHEMISTRY ORDERABLES Fin al Result [facility] [address] [place] [address] * (ABNORMAL) CMP (COMPREHENSIVE METABOLIC PANEL) (07/25/2024 11:02 AM CDT) SODIUM 134(L) 136 - 145 mmol/L 07/25/2024 11:37 AM CDT [facility] POTASSIUM 2.5(LL) 3.5 - 5.1 mmol/L 07/25/2024 11:37 AM CDT [facility] CHLORIDE 93(L) 98 - 107 mmol/L 07/25/2024 11:37 AM CDT [facility] CO2, VENOUS 22 22 - 30 mmol/L 07/25/2024 11:37 AM CDT [facility] ANION GAP 21.5(H) <18.0 mmol/L 07/25/2024 11:37 AM CDT [facility] GLUCOSE 153(H) 70 - 99 mg/dL 07/25/2024 11:37 AM CDT [facility] BUN 30(H) 5 - 18 mg/dL 07/25/2024 11:37 AM CDT [facility] CREATININE, BLOOD 3.31(H) 0.60 - 1.00 mg/dL 07/25/2024 11:37 AM CDT [facility] BUN/CREATININE RATIO 9(L) 12 - 20 ratio 07/25/2024 11:37 AM CDT [facility] TOTAL PROTEIN 8.4(H) 6.3 - 8.2 g/dL 07/25/2024 11:37 AM T [facility] ALBUMIN 4.5 3.5 - 5.0 g/dL 07/25/2024 11:37 AM [facility] A/G RATIO 1.2 1.0 - 2.2 07/25/2024 11:37 AM [facility] CALCIUM 10.2 8.7 - 10.5 mg/dL 07/25/2024 11:37 AM [facility] T BILI 0.9 0.2 - 1.2 mg/dL 07/25/2024 11:37 AM [facility] SGOT (AST) 14 5 - 34 U/L 07/25/2024 11:37 AM [facility] SGPT (ALT) 45 0 - 55 U/L 07/25/2024 11:37 AM [facility] ALKALINE PHOSPHATASE 90 40 - 150 U/L 07/25/2024 11:37 AM [facility] IS THE PATIENT REQUIRED TO BE FASTING? No 07/25/2024 11:37 AM [facility] GFR, ESTIMATED 19(L) >=60 07/25/2024 11:37 AM [facility] Comment: Creatinine Clearance is the preferred criteria for selecting drug dose adjustments in renally impaired patients. ??The GFR is provided as additional pertinent clinical information. GFR is reported in mL/min/1.73 sq m. Calculation based on the Chronic Kidney Disease Epidemiology Collaboration (CKD- EPI) equation refit without adjustment for race. GFR, EST. 21(L) >=60 024 11:37 AM [facility] GFR, EST. NONAFRICAN 17(L) >=60 07/25/2024 11:37 AM [facility] Blood Sub-Q Port Venou s Access Device (Medi-Port, Implanted Port) / Unknown 07/25/2024 11:02 AM CDT 07/25/2024 11:02 AM CDT Markus Finley MD CHEMISTRY ORDERABLES Fin al Result Performing Organization Address City/[facility]/ZIP Co de Phone Number [facility] [address] [place] [address] * MAGNESIUM (MG) (07/25/2024 11:02 AM CDT) MAGNESIUM 2.1 1.6 - 2.6 mg/dL 07/25/2024 11:37 AM CDT [facility] Blood Sub-Q Port Venou s Access Device (Medi-Port, Implanted Port) / Unknown 07/25/2024 11:02 AM CDT 07/25/2024 11:02 AM CDT Markus Finley MD CHEMISTRY ORDERABLES Fin al Result Performing Organization Address [facility] Co de Phone Number [facility] [address] [place] [address] documented in this encounter Visit Diagnoses Diagnosis [...] mg documented in this encounter Care Teams Event Security Officer Relationship Specialty Start Date End Date Pritesh Chu MD [address] [address] PCP - General Family Medicine 04/18/24 Markus Finley MD [address] [place] [address] Consulting Physician Medical Oncology 04/18/24 documented as of this encounter
--- OUTSIDE RECORDS SUMMARY | 2024-10-27 03:40 | XMS_ITS | Encounter Summary ---
Author Organization [facility] Address [address] [place] [address] Phone Care Team Providers Care Data Warehouse Developer Name Role Phone Pritesh Chu MD Primary Care Provider [phone] Markus Finley MD Unavailable [phone] Reason for Visit * Reason Onset Date Comments Follow-up 08/01/2024 Encounter Details Date Type Department Care Team (Late st Contact Info) Description 08/01/2024 Post Discharge Follow-up [facility] Nursing Services [address] [place] [address] Arline Rojo, RN [place] Social History Tobacco Use Types Packs/Day Years Used Date Smoking Tobacco: Former Cigarettes 0.5 8.5 S tarted: 04/18/2016 Smokeless Tobacco: Never Alcohol Use Standard Drinks/Week Comments Yes 0 (1 standard drink = 0.6 oz pur e alcohol) [facility] Utilities Answer Date Recorded In [...] How often do you attend spiritism or latter day serv ices? Patient declined [...] medical care, and heating? Patient declined 08/01/2024 [facility] Occupat ional [facility] - Occupational Stress Questionnaire Answer Date [...] st Contact Info) Description 11/15/2024 1:00 PM PROJECT COORDINATOR [facility] [address] [place] [address] Markus Finley MD [address] [place] [address] 11/15/2024 2:00 PM PROJECT COORDINATOR [facility]ment [facility] [address] [place] [address] Markus Finley MD [address] [place] [address] Discharge Disposition: Discharged to home or Selfcare documented as of this encounter Visit Diagnoses Not on filedocumented in this encounter Additional Health Concerns Infection Onset Date Last Indicated Resolved Time C. difficile Rule-Out 08/01/2024 08/01/20242023 7:56 PM CDT documented as of this encounter Care Teams Data Warehouse Developer Relationship Specialty Start Date End Date Pritesh Chu MD [address] [address] PCP - General Family Medicine 04/18/24 Markus Finley MD [address] [place] [address] Consulting Physician Medical Oncology 04/18/24 documented as of this encounter
--- OUTSIDE RECORDS SUMMARY | 2024-10-27 03:40 | XMS_ITS | Encounter Summary ---
Author Organization [facility] Address [address] [place] [address] Phone Care Team Providers Care Seismic Engineer Name Role Phone Pritesh Chu MD Primary Care Provider [phone] Markus Finley MD Unavailable [phone] Reason for Visit * Reason Onset Date Comments Transition of Care 07/31/2024 TCM 1st attem pt Encounter Details Date Type Department Care Team (Late st Contact Info) Description 07/31/2024 Patient Outreach [facility] Market Research Senior Project Manager Management [address] [place] [address] Maday Suarez, RN [place] Transition of Care (TCM 1st attempt) Social History Tobacco Use Types Packs/Day Years Used Date Smoking Tobacco: Former Cigarettes 0.5 8.5 S tarted: 04/18/2016 Smokeless Tobacco: Never Alcohol Use Standard Drinks/Week Comments Yes 0 (1 standard drink = 0.6 oz pur e alcohol) [facility] Utilities Answer Date Recorded In [...] declined 08/01/2024 How often do you attend sikh or caodaism serv ices? Patient declined 08/01/2024 [...] medical care, and heating? Patient declined 08/01/2024 [facility] Occupat ional Health - [...] any time in the past 12 m [facility], were you homeless or living in [...] Follow-Up Call Discharge diagnosis: ALEXX Discharge facility: [facility] Patient's Current Condition: Chris states that she is doing ok. Denies pain, had some nausea this morning and states that she has medication for that. Reports feeling weak when first getting up, but she has taken her medications and is starting to feel better. She refused review. States that she hasno questions. She has f/u with Dr. Finely on 08/01 and states that she doesn't [...] no Nebulizer: no Medications: Did the patient curing pickling packer their medications from the pharmacy? Yes Is the patient compliant with the medication directions? Yes Follow Up Appointments: All Patient Appointments Provider Department Dept Phone 08/01/2024 2:20 PM Markus Finley [facility] [phone] 08/07/2024 2:00 PM [facility] CC INFUSION CHR7 [facility] [phone] PCP:Dr. Chu - states she will not f/u with PCP and she only sees [facility] Appointment scheduled within 7 days of Discharge (5 days for Heart Failure)? Yes, with [facility] - oncology Transportation: Patient plans to attend follow-up appointment and has transportation to follow up visit?Yes 60 Day utilization: ED: 3 Hospital Admissions: 2 Please call Surgical Coordinator Maday RN, at [phone] with any questions. documented in this encounter Plan of Treatment Upcoming Encounters Date Type Department Care Team (Late st Contact Info) Description 11/15/2024 1:00 PM LIFE COACH Lab [facility] Laboratory Services [address] [place] [address] Markus Finley MD [address] [place] [address] 11/15/2024 2:00 PM LIFE COACH Appointment [facility] MRI [address] [place] [address] Markus Finley MD [address] [place] [address] Discharge Disposition: Discharged to home or Selfcare documented as of this encounter Visit Diagnoses Not on filedocumented in this encounter Care Teams Seismic Engineer Relationship Specialty Start Date End Date Pritesh Chu MD [address] [place] [address] PCP - General Family Medicine 04/18/24 Markus Finley MD [address] [place] [address] Consulting Physician Medical Oncology 04/18/24 documented as of this encounter
--- OUTSIDE RECORDS SUMMARY | 2024-10-27 03:40 | XMS_ITS | Encounter Summary ---
Author Organization [facility] Address [address] [place] [address] Phone Care Team Providers Care Oyster Grower Name Role Phone Kellen Chu MD Primary Care Provider [phone] Markus Finley MD Unavailable [phone] Reason for Visit * Reason Comments Fatigue * Auth/Cert (Routine) Specialty Diagnoses / Procedures Referred By Contross t Referred To Contact Diagnoses Dehydration Rebeca Andrea MD [address] [place] [address] Phone: tel: fax: Referral ID Status Reason Start Date Expiration Date Visits Re quested Visits Authorized [id number] 1 1 Encounter Details Date Type Department Care Team (Late st Contact Info) Description 07/23/2024 7:57 AM CDT - 07/24/2024 6:54 PM CDT Emergency [facility] Medical [address] [place] [phone] Hayden Angel MD [address] [place] [address] Rebeca Andrea MD [address] [place] [address] Lee Lan MD [address] [place] [address] Dehydration Discharge Disposition: Discharged to home or [...] declined 07/25/2024 How often do you attend evangelical or jainism serv ices? Patient declined 07/25/2024 Do you [...] medical care, and heating? Patient declined 07/25/2024 [facility] Occupat ional Health - Occupational [...] a care home (including now)? Patient declined 07/25/2024 Comments No [...] MD - 07/24/2024 12:47 PM CDT [facility] DISCHARGE SUMMARY Name: Dayanara Hilton Age: 24 [...] 1 week(s) [address] [place] [address] Markus Finley MD Medical Oncology, Hematology, Internal Medicine Call in 1 week(s) [address] [facility] [address] Discharge Instructions: Discharge Condition: improved Disposition: Home [...] of depression and obesity, who presented to [facility] with complaints of dehydration.Pt reports [...] found for: HGBA1C No results found for: [id number] No results found for: CPK , CPKI , CKMB , CKMBNI , CKMBPOCT , CKMBRELINDX , TROPONINI , POCTRP No results found for: FERRITIN No results found for: FOLATE No results found for: PHARTERIAL , PO2ART , WKK2NSW , CO2ART , O2ART Lab Results Component [...] MOUTH DAILY potassium chloride SA 20 MEQ [id number] Commonly known as: KLORCON M Take 3 [...] Thank you very much for allowing the [facility] Adult Hospitalist Service to participate in [...] this encounter H&P Notes * Esteban Mcgovern, STEWARD/STEWARDESS LOUNGE, ACCOUNTING SOFTWARE SPECIALIST - 07/23/2024 3:19 PM CDT [facility] ADMISSION HISTORY & PHYSICAL HPI: Dayanara Hilton is a 24 y.o. female with Melanoma to her left foot and is undergoing immunotherapy with oncologist Dr. Finley, hx of depression and obesity, who presented to [facility] with complaints of dehydration. Pt [...] results found for: PHARTERIAL , PO2ART , ESS7EWK , CO2ART , O2ART No results found [...] with patient and/or family and/or Power of Frog Farmer approximately 16 minutes. Discussed CPR/Intubation/Treatment Goals/Quality of life/Intensity of Care. Patient desires: Full Code VTE Prophylaxis: Lovenox 40mg Q24h Thank you very much for allowing the [facility] Adult Hospitalist Service to participate in the care of this patient By: Esteban Mcgovern APRN, CNP, 07/23/2024, 3:19 PM CDT Primary Care Physician: KELLEN CHU MD Cosigned by Rebeca Andrea MD at 08/02/2024 8:20 AM CDT documented in this encounter ED Notes * Martir Ramires RN - 07/23/2024 3:25 PM CDT to floor per stretcher with furnace feeder. pt's iv site to left hand remains [...] 90 min Stress: Stress Concern Present (06/27/2024) [facility] [place] [facility] - Occupational Stress Questionnaire [...] st Contact Info) Description 11/15/2024 1:00 PM GAMING MANAGER [facility] [address] [facility] [place] [address] Markus Finley MD [address] [place] [address] 11/15/2024 2:00 PM GAMING MANAGER [facility]ment [facility] [address] [facility] [place] [address] Markus Finley MD [address] [place] [address] Discharge Disposition: Discharged to home or Selfcare [...] DAYS, FINAL RESULT 07/30/2024 3:25 PM CDT [facility] Culture BLOOD SPECIMEN / Unknown Venipuncture / Unknown 07/24/2024 12:52 PM CDT 07/24/2024 1:46 PM CDT Narrative [facility] - 07/30/2024 3:25 PM CDT [Auto-resulted by a batch job.] us Lee Lan MD MICROBIOLOGY - GENERAL O RDERABLES Edited Result - Final [facility] [address] [place] [address], [place] * (ABNORMAL) BMP (07/24/2024 12:52 PM CDT) Only the most recent of2 resultswithin the time period is included. SODIUM 134(L) 136 - 145 mmol/L 07/24/2024 1:30 PM CDT [facility] POTASSIUM 2.4(LL) 3.5 - 5.1 mmol/L 07/24/2024 1:30 PM CDT [facility] CHLORIDE 99 98 - 107 mmol/L 07/24/2024 1:30 PM CDT [facility] CO2, VENOUS 18(L) 22 - 30 mmol/L 07/24/2024 1:30 PM CDT [facility] ANION GAP 19.4(H) <18.0 mmol/L 07/24/2024 1:30 PM CDT [facility] GLUCOSE 94 70 - 99 mg/dL 07/24/2024 1:30 PM CDT [facility] BUN 18 5 - 18 mg/dL 07/24/2024 1:30 PM CDT [facility] CREATININE, BLOOD 1.36(H) 0.60 - 1.00 mg/dL 07/24/2024 1:30 PM CDT [facility] BUN/CREATININE RATIO 13 12 - 20 ratio 07/24/2024 1:30 PM CDT [facility] CALCIUM 9.2 8.7 - 10.5 mg/dL 07/24/2024 1:30 PM CDT [facility] GFR, ESTIMATED 56(L) >=60 07/24/2024 1:30 PM CDT [facility] Comment: Creatinine Clearance is the preferred criteria for selecting drug dose adjustments in renally impaired patients. ??The GFR is provided as additional pertinent clinical information. GFR is reported in mL/min/1.73 sq m. Calculation based on the Chronic Kidney Disease Epidemiology Collaboration (CKD- EPI) equation refit without adjustment for race. GFR, EST. 58(L) >=60 024 1:30 PM CDT [facility] GFR, EST. NONAFRICAN 48(L) >=60 07/24/2024 1:30 PM CDT [facility] Blood BLOOD SPECIMEN / Unknown Venipuncture / Unknown 07/24/2024 12:52 PM CDT 07/24/2024 1:07 PM CDT us Lee Lan MD CHEMISTRY ORDERABLES Fin al Result [facility] [address] [place] [address] * (ABNORMAL) Manual Differential (07/24/2024 5:48 AM CDT) BANDS % 30.0 % 07/24/2024 8:31 AM CDT [facility] NEUTROPHILS % 43.0(L) 47.0 - 73.0 % 07/24/2024 8:31 AM CDT [facility] LYMPHOCYTES % 14.0(L) 18.0 - 42.0 % 07/24/2024 8:31 AM CDT [facility] MONOCYTES % 12.0 4.0 - 12.0 % 07/24/2024 8:31 AM CDT [facility] METAMYELOCYTES % 1.0(H) <=0.0 % 07/24/20 8:31 AM CDT [facility] NEUTROPHILS ABSOLUTE 4.88 1.60 - 7.70 10(3)/mcL 07/24/2024 8:31 AM CDT [facility] LYMPHOCYTES ABSOLUTE 0.94(L) 1.30 - 3.20 10(3)/mcL 07/24/2024 8:31 AM CDT [facility] MONOCYTES ABSOLUTE 0.80 0.20 - 1.00 10(3)/mcL 07/24/2024 8:31 AM CDT [facility] DOHLE BODIES 3+ 07/24/2024 8:31 AM CDT [facility] LARGE PLATELETS 1+ 8:31 AM CDT [facility] RBC MORPH STATUS Normal 07/24/20 8:31 AM CDT [facility] Blood Venipuncture / Unknown 07/24/2024 5:48 AM CDT 07/24/2024 7:07 AM CDT us Esteban Mcgovern STEWARD/STEWARDESS LOUNGE, ACCOUNTING SOFTWARE SPECIALIST HEMATOLOGY ORDERABLES F inal Result [facility] [address] [place] [address] * (ABNORMAL) CBC with Auto Differential (07/24/2024 5:48 AM CDT) Only the most recent of2 resultswithin the time period is included. WBC 6.68 4.00 - 12.00 10(3)/mcL 07/24/2024 8:31 AM CDT [facility] RBC 5.23 3.80 - 5.30 10(6)/mcL 07/24/2024 8:31 AM CDT [facility] HEMOGLOBIN (HGB) 15.5 12.0 - 15.8 g/dL 07/24/2024 8:31 AM CDT [facility] HEMATOCRIT (HCT) 47.2(H) 36.0 - 47.0 % 07/24/2024 8:31 AM CDT [facility] MCV 90.2 82.0 - 96.0 fL 07/24/2024 8:31 AM CDT [facility] MCH 29.6 26.0 - 34.0 pg 07/24/2024 8:31 AM CDT [facility] MCHC 32.8 31.0 - 36.0 g/dL 07/24/2024 8:31 AM CDT [facility] PLATELET COUNT 323 140 - 440 10(3)/mcL 07/24/2024 8:31 AM CDT [facility] RDW 14.5 11.8 - 15.5 % 07/24/2024 8:31 AM CDT [facility] MPV 10.1 9.7 - 12.4 fL 07/24/2024 8:31 AM CDT [facility] NRBC PER 100 WBC 0 07/24/2024 8:31 AM CDT [facility] RESULTS ARE CONSISTENT WITH PERIPHERAL SMEAR REVIEW Yes 07/24/2024 8:31 AM CDT [facility] Blood Venipuncture / Unknown 07/24/2024 5:48 AM CDT 07/24/2024 7:07 AM CDT us Esteban Mcgovern APRN, ACCOUNTING SOFTWARE SPECIALIST HEMATOLOGY ORDERABLES F inal Result Performing Organization Address City/[facility]/ZIP Co de Phone Number [facility] [address] [place] [address] * C. DIFF BY PCR (07/24/2024 12:49 AM CDT) Pathologist [facility] C DIFF TOXIN DNA BY PCR Negative Negative, Invalid 07/24/2024 1:43 AM CDT [facility] Other STOOL SPECIMEN / Unknown Non-Phlebotomy Collection / Unknown 07/24/2024 12:49 AM CDT 07/24/2024 12:53 AM CDT us Esteban Mcgovern APRN, ACCOUNTING SOFTWARE SPECIALIST MICROBIOLOGY - GENERAL ORDERABLES Final Result [facility] [address] [place] [address] * Culture, Stool (07/24/2024 12:49 AM CDT) CULTURE RESULTS NO SALMONELLA, SHIGELLA OR E COLI 0157 ISOLATED 07/25/2024 12:12 PM CDT [facility] CULTURE RESULTS NEGATIVE FOR CAMPYLOBACTER ANTIGEN 07/25/2024 12:12 PM CDT [facility] CULTURE RESULTS SHIGA TOXIN 1 AND SHIGA TOXIN 2 NOT DETECTED 07/25/2024 12:12 PM CDT [facility] CULTURE RESULTS Heavy Mixed taye 07/25/2024 12:12 PM CDT [facility] Comment:PROBABLE USUAL TAYE FOR THIS SPECIMEN SOURCE Culture STOOL SPECIMEN / Unknown Non-Phlebotomy Collection / Unknown 07/24/2024 12:49 AM CDT 07/24/2024 12:53 AM CDT us Esteban Mcgovern STEWARD/STEWARDESS LOUNGE, ACCOUNTING SOFTWARE SPECIALIST MICROBIOLOGY - GENERAL ORDERABLES Final Result Performing Organization Address City/[facility]/ZIP Co de Phone Number [facility] [address] [place] [address], [place] * RHYTHM STRIP (07/24/2024 12:00 AM CDT) Only the most recent of5 resultswithin the time period is included. 07/24/2024 us Provider Scan IMG ECG ORDERABLES Final Result Performing Organization Address City/[facility] Co de Phone Number RESULTING AGENCY * Ur Test Qual (07/23/2024 12:31 PM CDT) PREG TEST,MONOCLONA L Negative 07/23/2024 10:33 PM CDT [facility] Urine URINE SPECIMEN / Unknown Non-Phlebotomy Collection / Unknown 07/23/2024 12:31 PM CDT 07/23/2024 12:55 PM CDT us Hayden Angel MD URINE ORDERABLES Final R esult Performing Organization Address City/[facility]/ZIP Co de Phone Number [facility] [address] [place] [address] * (ABNORMAL) Urinalysis with Reflex (07/23/2024 12:31 PM CDT) SPECIFIC GRAVITY 1.015 1.003 - 1.030 07/23/2024 1:20 PM CDT [facility] URINE PH 6.0 5.0 - 9.0 07/23/2024 1:20 PM CDT [facility] WBC ESTERASE Negative Negative 07/23/2024 1:20 PM CDT [facility] NITRITE Negative Negative 07/23/2024 1:20 PM CDT [facility] PROTEIN, RANDOM URINE 30 mg/dL(A) Negative 07/23/2024 1:20 PM CDT [facility] URINE GLUCOSE, QUAL Negative Negative 07/23/2024 1:20 PM CDT [facility] URINE KETONES Negative Negative 07/23/2024 1:20 PM CDT [facility] UROBILINOGEN Normal Normal mg/dL 07/23/2024 1:20 PM CDT [facility] URINE BLOOD 10 /uL(A) Negative chidi/ul 07/23/2024 1:20 PM CDT [facility] URINALYSIS COLOR Yellow 07/23/20 1:20 PM CDT [facility] URINALYSIS CLARITY Clear 07/23/2024 1:20 PM CDT [facility] WBC (Urine) 11-20(A) Negative, 0-5 /hpf 07/23/2024 1:20 PM CDT [facility] URINE RBC'S 3-5(A) Negative, 0-2 /hpf 07/23/2024 1:20 PM CDT [facility] EPITHELIAL CELLS Moderate amount /lpf 07/23/2024 1:20 PM CDT [facility] BACTERIA, URINE Few(A) Negative /hpf 07/23/2024 1:20 PM CDT [facility] CASTS 5-10/LPF Hyaline Casts(A) Negative, 0-2/lpf, 3-5/lpf, 6-10/lpf, 11-20/lpf, >20/lpf /lpf 07/23/2024 1:20 PM CDT [facility] Urine URINE SPECIMEN / Unknown Non-Phlebotomy Collection / Unknown 07/23/2024 12:31 PM CDT 07/23/2024 12:55 PM CDT Hayden Angel MD URINE ORDERABLES Final R esult Performing Organization Address City/[facility]/ZIP Co de Phone Number [facility] [address] [place] [address] * Lactic Acid (Lactate) (07/23/2024 11:28 AM CDT) Only the most recent of2 resultswithin the time period is included. [facility] LACTIC ACID 1.3 0.7 - 2.0 mmol/L 07/23/2024 11:53 AM CDT [facility] Blood Venipuncture / Unknown 07/23/2024 11:28 AM CDT 07/23/2024 11:34 AM CDT Hayden Angel MD CHEMISTRY ORDERABLES Fin al Result Performing Organization Address City/[facility] Co de Phone Number [facility] [address] [place] [address] * RSV,SARS-COV-2,INFLUENZA A&B BY PCR (07/23/2024 8:59 AM CDT) [facility] FLU A Negative Negative, Error 07/23/2024 10:38 AM CDT [facility] FLU B Negative Negative 07/23/2024 10:38 AM CDT [facility] RESP SYNC VIRUS Negative Negative 10:38 AM CDT [facility] SARSCOV2 NOT DETECTED (Reference Range for this test is Not Detected) 07/23/2024 10:38 AM CDT [facility] Comment:This test was perfor med by a Reverse Claims Configuration Analyst PCR Method. Swab NASOPHARYNGEAL SWAB / Unknown Non-Phlebotomy Collection / Unknown 07/23/2024 8:59 AM CDT 07/23/2024 9:58 AM CDT Narrative [facility] - 07/23/2024 10:38 AM CDT This test has not been FDA cleared or approved; the test has been authorized by FDA under an Emergency Use Authorization (EUA) for use by laboratories certified under the CLIA that meet the requirements to perform moderate, high or waived complexity tests. Authorized Fact Sheets about this test for providers and patients are available at: https://www.fda.gov/medical-devices/emabfurft-byejsecxme-uxxjuwb-devices/emergen -us e-authorizations Hayden Angel MD MICROBIOLOGY - GENERAL O RDERABLES Final Result [facility] [address] [place] [address] * Critical Care (07/23/2024 8:44 AM CDT) [...] 145 mmol/L 07/23/2024 9:22 AM CDT [facility] POTASSIUM 3.9 3.5 - 5.1 mmol/L 07/23/2024 9:22 AM CDT [facility] CHLORIDE 103 98 - 107 mmol/L 07/23/2024 9:22 AM T [facility] CO2, VENOUS 17(L) 22 - 30 mmol/L 07/23/2024 9:22 AM T [facility] ANION GAP 19.9(H) <18.0 mmol/L 07/23/2024 9:22 AM CDT [facility] GLUCOSE 110(H) 70 - 99 mg/dL 07/23/2024 9:22 AM T [facility] BUN 13 5 - 18 mg/dL 07/23/2024 9:22 AM [facility] CREATININE, BLOOD 1.61(H) 0.60 - 1.00 mg/dL 07/23/2024 9:22 AM [facility] BUN/CREATININE RATIO 8(L) 12 - 20 ratio 07/23/2024 9:22 AM T [facility] TOTAL PROTEIN 8.7(H) 6.3 - 8.2 g/dL 07/23/2024 9:22 AM [facility] ALBUMIN 5.0 3.5 - 5.0 g/dL 07/23/2024 9:22 AM [facility] A/G RATIO 1.4 1.0 - 2.2 07/23/2024 9:22 AM [facility] CALCIUM 10.8(H) 8.7 - 10.5 mg/dL 07/23/2024 9:22 AM T [facility] T BILI 1.0 0.2 - 1.2 mg/dL 07/23/2024 9:22 AM T [facility] SGOT (AST) 25 5 - 34 U/L 07/23/2024 9:22 AM T [facility] SGPT (ALT) 69(H) 0 - 55 U/L 07/23/2024 9:22 AM CDT [facility] ALKALINE PHOSPHATASE 85 40 - 150 U/L 07/23/2024 9:22 AM CDT [facility] GFR, ESTIMATED 46(L) >=60 07/23/2024 9:22 AM CDT [facility] Comment: Creatinine Clearance is the preferred criteria for selecting drug dose adjustments in renally impaired patients. ??The GFR is provided as additional pertinent clinical information. GFR is reported in mL/min/1.73 sq m. Calculation based on the Chronic Kidney Disease Epidemiology Collaboration (CKD- EPI) equation refit without adjustment for race. GFR, EST. 48(L) >=60 024 9:22 AM CDT [facility] GFR, EST. NONAFRICAN 39(L) >=60 07/23/2024 9:22 AM CDT [facility] Blood Venipuncture / Unknown 07/23/2024 8:20 AM CDT 07/23/2024 8:59 AM CDT Hayden Angel MD CHEMISTRY ORDERABLES Fin al Result [facility] [address] [place] [address] * EKG 12 LEAD (07/23/2024 8:15 AM CDT) Ventricular Rate 126 BPM EXTERNAL EKG Atrial Rate 126 BPM EXTERNAL EKG P-R Interval 146 ms EXTERNAL EKG QRS Duration 80 ms EXTERNAL EKG Q-T Duration 292 ms EXTERNAL EKG QTC CALCULATION 422 ms EXTERNAL EKG P [place] 33 degrees EXTERNAL EKG R [place] 11 degrees EXTERNAL EKG T [place] 113 degrees EXTERNAL EKG 07/23/2024 8:15 AM CDT Impressions EXTERNAL EKG - 07/24/2024 9:19 AM CDT Sinus tachycardia ST & T wave abnormality, consider lateral ischemia Abnormal ECG No previous ECGs available Confirmed by Emily Hall ([id number]) on 07/24/2024 9:19:48 AM Narrative Procedure Note Emily Hall MD - 07/24/2024 IMPRESSION: Sinus tachycardia ST & T wave abnormality, consider lateral ischemia Abnormal ECG No previous ECGs available Confirmed by Emily Hall ([id number]) on 07/24/2024 9:19:48 AM us Hayden Angel [...] 2) increasing dosage, or 3) changing to RABBLE FURNACE TENDER. magnesium hydroxide (MILK OF MAGNESIA) 400 MG/5ML [...] documented as of this encounter Care Teams Oyster Grower Relationship Specialty Start Date End Date Kellen Chu [place] [address] [address] PCP - General Family Medicine 04/18/24 Markus Finley MD [address] [place] [address] Consulting Physician Medical Oncology 04/18/24 documented as of this encounter
--- OUTSIDE RECORDS SUMMARY | 2024-10-27 03:40 | XMS_ITS | Encounter Summary ---
Author Organization [facility] Address [address] [facility] [address] Phone Care Team Providers Care Freight Engineer Name Role Phone Pritesh Chu MD Primary Care Provider [phone] Markus Finley MD Unavailable [phone] Encounter Details Date Type Department Care Team (Late st Contact Info) Description 08/01/2024 10:30 AM CDT Clinical Support [facility] Oncology Services [address] [place] [id number] Markus Finley MD [address] [place] [address] Diarrhea due to drug (Primary Dx); Metastatic melanoma (HCC) Discharge Disposition: Discharged to home or Selfcare Social History Tobacco Use Types Packs/Day Years Used Date Smoking Tobacco: Former Cigarettes 0.5 8.5 S tarted: 04/18/2016 Smokeless Tobacco: Never Alcohol Use Standard Drinks/Week Comments Yes 0 (1 standard drink = 0.6 oz pur e alcohol) [facility] Utilities Answer Date Recorded In the past 12 months has [employer], [employer], or [employer] threatened to shut off services in your home? Patient declined 08/01/2024 Social Connection and Isolation Panel [NHANES] A nswer Date Recorded In a typical week, how many times do you talk on the phone with family, friends, or neighbors? Patient declined 08/01/2024 How often do you get togethe r with friends or relatives? Patient declined 08/01/2024 How often do you attend mu-ism or rastafari serv ices? Patient declined 08/01/2024 Do you [...] CDT Updated [facility] order with specimen from [facility] in 08/2023. documented in this encounter Plan of Treatment Upcoming Encounters Date Type Department Care Team (Late st Contact Info) Description 11/15/2024 1:00 PM BREWERY REPRESENTATIVE Lab [facility] Laboratory Services [address] [place] [address] Markus Finley MD [address] [place] [address] 11/15/2024 2:00 PM BREWERY REPRESENTATIVE Appointment [facility] MRI [address] [place] [address] Markus Finley MD [address] [place] [address] Discharge Disposition: Discharged to home or Selfcare [...] AUTO DIFFERENTIAL (08/01/2024 11:05 AM CDT) Pathologist [facility] WBC 17.32(H) 4.00 - 12.00 10(3)/mcL 08/01/2024 11:18 AM CDT [facility] RBC 6.09(H) 3.80 - 5.30 10(6)/mcL 08/01/2024 11:18 AM CDT [facility] HEMOGLOBIN (HGB) 18.0(H) 12.0 - 15.8 g/dL 08/01/2024 11:18 AM CDT [facility] HEMATOCRIT (HCT) 51.2(H) 36.0 - 47.0 % 08/01/2024 11:18 AM CDT [facility] MCV 84.1 82.0 - 96.0 fL 08/01/2024 11:18 AM CDT [facility] MCH 29.6 26.0 - 34.0 pg 08/01/2024 11:18 AM CDT [facility] MCHC 35.2 31.0 - 36.0 g/dL 08/01/2024 11:18 AM CDT [facility] PLATELET COUNT 472(H) 140 - 440 10(3)/mcL 08/01/2024 11:18 AM CDT [facility] RDW 13.8 11.8 - 15.5 % 08/01/2024 11:18 AM CDT [facility] MPV 9.8 9.7 - 12.4 fL 08/01/2024 11:18 AM CDT [facility] NEUTROPHILS 86.8(H) 47.0 - 73.0 % 08/01/2024 11:18 AM CDT [facility] LYMPHOCYTES 8.5(L) 18.0 - 42.0 % 08/01/2024 11:18 AM CDT [facility] MONOCYTES 4.0 4.0 - 12.0 % 08/01/2024 11:18 AM CDT [facility] EOSINOPHILS 0.1 0.0 - 5.0 % 08/01/2024 11:18 AM CDT [facility] BASOPHILS 0.6 0.0 - 1.0 % 08/01/2024 11:18 AM CDT [facility] ABSOLUTE NEUTROPHILS 15.03(H) 1.60 - 7.70 10(3)/[facility] 08/01/2024 11:18 AM CDT [facility] ABSOLUTE LYMPHOCYTES 1.47 1.30 - 3.20 10(3)/[facility] 08/01/2024 11:18 AM CDT [facility] ABSOLUTE MONOCYTES 0.70 0.20 - 1.00 10(3)/[facility] 08/01/2024 11:18 AM CDT [facility] ABSOLUTE EOSINOPHIL 0.01 0.00 - 0.40 10(3)/[facility] 08/01/2024 11:18 AM CDT [facility] ABSOLUTE BASOPHILS 0.11(H) 0.00 - 0.10 10(3)/[facility] 08/01/2024 11:18 AM CDT [facility] NRBC PER 100 WBC 0 08/01/20 11:18 AM CDT [facility] Blood Venipuncture / Unknown 08/01/2024 11:05 AM CDT 08/01/2024 11:05 AM CDT us Markus Finley MD HEMATOLOGY ORDERABLES Fi nal Result [facility] [address] [place] [address] * (ABNORMAL) THYROID STIMULATING HORMONE (TSH) (08/01/2024 11:05 AM CDT) [facility] TSH 114.336(H) 0.300 - 5.000 mIU/L 08/01/2024 12:49 PM CDT [facility] Blood Venipuncture / Unknown 08/01/2024 11:05 AM CDT 08/01/2024 11:05 AM CDT Markus Finley MD CHEMISTRY ORDERABLES Fin al Result [facility] [address] [place] [address] * (ABNORMAL) CMP (COMPREHENSIVE METABOLIC PANEL) (08/01/2024 11:05 AM CDT) [facility] SODIUM 127(L) 136 - 145 mmol/L 08/01/2024 12:10 PM CDT [facility] POTASSIUM 3.3(L) 3.5 - 5.1 mmol/L 08/01/2024 12:10 PM CDT [facility] CHLORIDE 91(L) 98 - 107 mmol/L 08/01/2024 12:10 PM CDT [facility] CO2, VENOUS 15(L) 22 - 30 mmol/L 08/01/2024 12:10 PM CDT [facility] ANION GAP 24.3(H) <18.0 mmol/L 08/01/2024 12:10 PM CDT [facility] GLUCOSE 157(H) 70 - 99 mg/dL 08/01/2024 12:10 PM CDT [facility] BUN 29(H) 5 - 18 mg/dL 08/01/2024 12:10 PM CDT [facility] CREATININE, BLOOD 4.24(H) 0.60 - 1.00 mg/dL 08/01/2024 12:10 PM CDT [facility] BUN/CREATININE RATIO 7(L) 12 - 20 ratio 08/01/2024 12:10 PM CDT [facility] TOTAL PROTEIN 9.0(H) 6.3 - 8.2 g/dL 08/01/2024 12:10 PM T [facility] ALBUMIN 4.7 3.5 - 5.0 g/dL 08/01/2024 12:10 PM [facility] A/G RATIO 1.1 1.0 - 2.2 08/01/2024 12:10 PM T [facility] CALCIUM 10.6(H) 8.7 - 10.5 mg/dL 08/01/2024 12:10 PM CDT [facility] T BILI 0.7 0.2 - 1.2 mg/dL 08/01/2024 12:10 PM CDT [facility] SGOT (AST) 22 5 - 34 U/L 08/01/2024 12:10 PM [facility] SGPT (ALT) 53 0 - 55 U/L 08/01/2024 12:10 PM [facility] ALKALINE PHOSPHATASE 85 40 - 150 U/L 08/01/2024 12:10 PM [facility] IS THE PATIENT REQUIRED TO BE FASTING? No 08/01/2024 12:10 PM T [facility] GFR, ESTIMATED 14(L) >=60 08/01/2024 12:10 PM [facility] Comment: Creatinine Clearance is the preferred criteria for selecting drug dose adjustments in renally impaired patients. ??The GFR is provided as additional pertinent clinical information. GFR is reported in mL/min/1.73 sq m. Calculation based on the Chronic Kidney Disease Epidemiology Collaboration (CKD- EPI) equation refit without adjustment for race. GFR, EST. 16(L) >=60 024 12:10 PM [facility] GFR, EST. NONAFRICAN 13(L) >=60 08/01/2024 12:10 PM [facility] Blood Venipuncture / Unknown 08/01/2024 11:05 AM CDT 08/01/2024 11:05 AM CDT Markus Finley MD CHEMISTRY ORDERABLES Fin al Result [facility] [address] [place] [address] * (ABNORMAL) MAGNESIUM (MG) (08/01/2024 11:05 AM CDT) MAGNESIUM 2.7(H) 1.6 - 2.6 mg/dL 08/01/2024 12:10 PM CDT [facility] Blood Venipuncture / Unknown 08/01/2024 11:05 AM CDT 08/01/2024 11:05 AM CDT Markus Finley MD CHEMISTRY ORDERABLES Fin al Result Performing Organization Address City/[facility] Co de Phone Number [facility] [address] [place] [address] documented in this encounter Visit Diagnoses Diagnosis [...] documented as of this encounter Care Teams Freight Engineer Relationship Specialty Start Date End Date Pritesh Chu MD [address] [place] [address] PCP - General Family Medicine 04/18/24 Markus Finley MD [address] [place] [address] Consulting Physician Medical Oncology 04/18/24 documented as of this encounter
--- OUTSIDE RECORDS SUMMARY | 2024-10-27 03:40 | XMS_ITS | Encounter Summary ---
Author Organization [employer] Care Team Providers Care Agent Telegrapher Name Role Phone Pritesh Chu MD Primary Care Provider [phone] Markus Finley MD Unavailable [phone] Encounter Details Date Type Department Care Team [...] Recorded In the past 12 months has [employer], gas, oil, or water [email or web address] threatened to shut off services in your home? Patient declined 08/01/2024 Social Connection and Isolation Panel [NHANES] A nswer Date Recorded In a typical week, how many times do you talk on the phone with family, friends, or neighbors? Patient declined 08/01/2024 How often do you get togethe r with friends or relatives? Patient declined 08/01/2024 How often do you attend pentecostal or scientology serv ices? Patient declined 08/01/2024 [...] care, and heating? Patient declined 08/01/2024 [facility] of Occupat ional [facility] - Occupational Stress Questionnaire Answer [...] st Contact Info) Description 11/15/2024 1:00 PM BANK ADVISOR Lab [facility] Laboratory Services [address] [place] [address] Markus Finley MD [address] [place] [address] 11/15/2024 2:00 PM BANK ADVISOR Appointment [facility] MRI [address] [place] [address] Markus Finley MD [address] [place] [address] Discharge Disposition: Discharged to home or Selfcare documented as of this encounter Visit Diagnoses Not on filedocumented in this encounter Care Teams Agent Telegrapher Relationship Specialty Start Date End Date Pritesh Chu MD [address] [place] [address] PCP - General Family Medicine 04/18/24 Markus Finley MD [address] [place] [address] Consulting Physician Medical Oncology 04/18/24 documented as of this encounter
--- OUTSIDE RECORDS SUMMARY | 2024-10-27 03:40 | XMS_ITS | Encounter Summary ---
Author Organization [facility] Address [address] [place] [address] Phone Care Team Providers Care Kitchenhand Name Role Phone Pritesh Chu MD Primary Care Provider [phone] Markus Finley MD Unavailable Encounter Details Date Type Department Care Team (Late st Contact Info) Description 08/07/2024 Patient Outreach [facility] Education Rep Management [address] [place], [place] [id number] Lucille Lawson RN [place] Social History Tobacco Use Types Packs/Day Years Used Date Smoking Tobacco: Former Cigarettes 0.5 8.5 S tarted: 04/18/2016 Smokeless Tobacco: Never Alcohol Use Standard Drinks/Week Comments Yes 0 (1 standard drink = 0.6 oz pur e alcohol) [facility] Utilities Answer Date Recorded In the past 12 months has [employer], gas, oil, or water company threatened to [...] How often do you attend advent or hoahaoism serv ices? Patient declined 08/01/2024 [...] [facility] Occupat ional Health - [...] Contact Info) Description 11/15/2024 1:00 PM MANAGER ART Lab [facility] [address] [place] [address] Markus Finley MD [address] [place] [address] 11/15/2024 2:00 PM MANAGER ART Appointment [facility] [address] [place] [address] Markus Finley MD [address] [place] [address] Discharge Disposition: Discharged to home or Selfcare documented as of this encounter Visit Diagnoses Not on filedocumented in this encounter Care Teams Kitchenhand Relationship Specialty Start Date End Date Pritesh Chu MD [address] [address] PCP - General Family Medicine 04/18/24 Markus Finley MD [address] [place] [address] Consulting Physician Medical Oncology 04/18/24 documented as of this encounter
--- OUTSIDE RECORDS SUMMARY | 2024-10-27 03:40 | XMS_ITS | Encounter Summary ---
Author Organization [facility] Address [address] [place] [address] Phone Care Team Providers Care Bomb Squad Commander Name Role Phone Pritesh Chu MD Primary Care Provider [phone] Markus Finley MD Unavailable [phone] Reason for Visit * Reason Onset Date Comments Transition of Care 08/09/2024 Week #1 Encounter Details Date Type Department Care Team (Late st Contact Info) Description 08/09/2024 Patient Outreach [facility] Spice Grinder Management [address] [place], [place] [address] Lucille Lawson RN [place] Transition of Care [...] How often do you attend amish or rastafari serv ices? Patient declined 08/01/2024 [...] declined 08/01/2024 [facility] Occupat ional Health - [...] Reviewed: Yes Next Steps: follow up with photographic machine operator as schedule RN Care Management Assessment Scheduled: no does not want Social Work Assessment needed: no Patient needs further transition of care calls: No, not needed Please call Pourer Off Lucille Lawson RN at [phone] with any questions. Follow Up Appointments: Patient and marketing underwriter reviewed upcoming appointments and patient acknowledged understanding. All Patient Appointments Provider Department Dept Phone 08/10/2024 11:00 AM [facility] CC INFUSION BED1 [facility] Oncology Services [phone] 08/13/2024 2:00 PM Markus Finley [facility] Oncology Services [phone] 08/15/2024 3:00 PM [id number] PET [phone] documented in this encounter Plan of Treatment Upcoming Encounters Date Type Department Care Team (Late st Contact Info) Description 11/15/2024 1:00 PM VALVE ASSEMBLER Lab [facility] Laboratory Services [address] [place] [address] Markus Finley MD [address] [place] [address] 11/15/2024 2:00 PM VALVE ASSEMBLER Appointment [facility] MRI [address] [place] [address] Markus Finley MD [address] [place] [address] Discharge Disposition: Discharged to home or Selfcare documented as of this encounter Visit Diagnoses Not on filedocumented in this encounter Care Teams Bomb Squad Commander Relationship Specialty Start Date End Date Pritesh Chu MD [address] [place] [address] PCP - General Family Medicine 04/18/24 Markus Finley MD [address] [place] [address] Consulting Physician Medical Oncology 04/18/24 documented as of this encounter
--- OUTSIDE RECORDS SUMMARY | 2024-10-27 03:40 | XMS_ITS | Encounter Summary ---
Author Organization [facility] Address [address] [place] [address] Phone Care Team Providers Care Wet Pour Mixer Name Role Phone Pritesh Chu MD Primary Care Provider [phone] Markus Finley MD Unavailable [phone] Reason for Visit * Episode Based Medications (Routine) - Closed Specialty Diagnoses / Procedures Referred By Contross t Referred To Contact Diagnoses Metastatic melanoma (HCC) Markus Finley MD [address] [place] [address] Phone: tel: fax: [facility] Oncology Services [address] [place] [address] Phone: tel: fax: Referral ID Status Reason Start Date Expiration Date Visits Re quested Visits Authorized [id number] Closed 04/19/2024 1 30 Encounter Details Date Type Department Care Team (Late st Contact Info) Description 08/10/2024 11:00 AM CDT Clinical Support [facility] Oncology Services [address] [place] [address] Markus Finley MD [address] [place] [address] Metastatic melanoma (HCC) (Primary Dx); Acute renal [...] declined 08/01/2024 How often do you attend buddhism or christianity serv ices? Patient declined 08/01/2024 [...] medical care, and heating? Patient declined 08/01/2024 [place] of Occupat ional [facility] - Occupational [...] Contact Info) Description 11/15/2024 1:00 PM SENIOR VALIDATION ENGINEER Lab [facility] [address] [place] [address] Markus Finley MD [address] [place] [address] 11/15/2024 2:00 PM SENIOR VALIDATION ENGINEER Appointment [facility] MRI [address] [place] [address] Markus Finley MD [address] [place] [address] Discharge Disposition: Discharged to home or Selfcare [...] - 12.00 10(3)/mcL 08/10/2024 11:34 AM CDT [facility] RBC 3.93 3.80 - 5.30 10(6)/mcL 08/10/2024 11:34 AM CDT [facility] HEMOGLOBIN (HGB) 11.8(L) 12.0 - 15.8 g/dL 08/10/2024 11:34 AM CDT [facility] HEMATOCRIT (HCT) 34.3(L) 36.0 - 47.0 % 08/10/2024 11:34 AM CDT [facility] MCV 87.3 82.0 - 96.0 fL 08/10/2024 11:34 AM CDT [facility] MCH 30.0 26.0 - 34.0 pg 08/10/2024 11:34 AM CDT [facility] MCHC 34.4 31.0 - 36.0 g/dL 08/10/2024 11:34 AM CDT [facility] PLATELET COUNT 213 140 - 440 10(3)/mcL 08/10/2024 11:34 AM CDT [facility] RDW 14.4 11.8 - 15.5 % 08/10/2024 11:34 AM CDT [facility] MPV 9.3(L) 9.7 - 12.4 fL 08/10/2024 11:34 AM CDT [facility] NEUTROPHILS 90.0(H) 47.0 - 73.0 % 08/10/2024 11:34 AM CDT [facility] LYMPHOCYTES 5.2(L) 18.0 - 42.0 % 08/10/2024 11:34 AM CDT [facility] MONOCYTES 4.7 4.0 - 12.0 % 08/10/2024 11:34 AM CDT [facility] EOSINOPHILS 0.0 0.0 - 5.0 % 08/10/2024 11:34 AM CDT [facility] BASOPHILS 0.1 0.0 - 1.0 % 08/10/2024 11:34 AM CDT [facility] ABSOLUTE NEUTROPHILS 10.39(H) 1.60 - 7.70 10(3)/[facility] 08/10/2024 11:34 AM CDT [facility] ABSOLUTE LYMPHOCYTES 0.60(L) 1.30 - 3.20 10(3)/[facility] 08/10/2024 11:34 AM CDT [facility] ABSOLUTE MONOCYTES 0.54 0.20 - 1.00 10(3)/[facility] 08/10/2024 11:34 AM CDT [facility] ABSOLUTE EOSINOPHIL 0.00 0.00 - 0.40 10(3)/[facility] 08/10/2024 11:34 AM CDT [facility] ABSOLUTE BASOPHILS 0.01 0.00 - 0.10 10(3)/[facility] 08/10/2024 11:34 AM CDT [facility] NRBC PER 100 WBC 0 08/10/20 24 11:34 AM [facility] Blood Sub-Q Port Venou s Access Device (Medi-Port, Implanted Port) / Unknown 08/10/2024 11:20 AM CDT 08/10/2024 11:20 AM CDT us Lee Lan MD HEMATOLOGY ORDERABLES Fi nal Result [facility] [address] [place] [address] * (ABNORMAL) BASIC METABOLIC PANEL W/ CALCIUM TOTAL (08/10/2024 11:20 AM CDT) SODIUM 133(L) 136 - 145 mmol/L 08/10/2024 11:56 AM CDT [facility] POTASSIUM 3.9 3.5 - 5.1 mmol/L 08/10/2024 11:56 AM CDT [facility] CHLORIDE 105 98 - 107 mmol/L 08/10/2024 11:56 AM CDT [facility] CO2, VENOUS 23 22 - 30 mmol/L 08/10/2024 11:56 AM CDT [facility] ANION GAP 8.9 <18.0 mmol/L 08/10/2024 11:56 AM CDT [facility] GLUCOSE 138(H) 70 - 99 mg/dL 08/10/2024 11:56 AM CDT [facility] BUN 15 5 - 18 mg/dL 08/10/2024 11:56 AM CDT [facility] CREATININE, BLOOD 0.86 0.60 - 1.00 mg/dL 08/10/2024 11:56 AM CDT [facility] BUN/CREATININE RATIO 17 12 - 20 ratio 08/10/2024 11:56 AM CDT [facility] CALCIUM 8.9 8.7 - 10.5 mg/dL 08/10/2024 11:56 AM CDT [facility] GFR, ESTIMATED >60 >=60 08/10/2024 11:56 AM CDT [facility] Comment: Creatinine Clearance is the preferred criteria for selecting drug dose adjustments in renally impaired patients. ??The GFR is provided as additional pertinent clinical information. GFR is reported in mL/min/1.73 sq m. Calculation based on the Chronic Kidney Disease Epidemiology Collaboration (CKD- EPI) equation refit without adjustment for race. GFR, EST. >60 >=60 024 11:56 AM CDT [facility] GFR, EST. NONAFRICAN >60 >=60 08/10/2024 11:56 AM CDT [facility] Blood Sub-Q Port Venou s Access Device (Medi-Port, Implanted Port) / Unknown 08/10/2024 11:20 AM CDT 08/10/2024 11:20 AM CDT us Lee Lan MD CHEMISTRY ORDERABLES Fin al Result [facility] [place] [address] documented in this encounter Visit Diagnoses Diagnosis [...] Units documented in this encounter Care Teams Wet Pour Mixer Relationship Specialty Start Date End Date Pritesh Chu MD [address] [address] PCP - General Family Medicine 04/18/24 Markus Finley MD [address] [place] [address] Consulting Physician Medical Oncology 04/18/24 documented as of this encounter
--- OUTSIDE RECORDS SUMMARY | 2024-10-27 03:40 | XMS_ITS | Encounter Summary ---
Author Organization [email or web address] Care Team Providers Care Transportation Security Screener Name Role Phone Pritesh Chu MD Primary Care Provider [phone] Markus Finley MD Unavailable [phone] Encounter Details Date Type Department Care Team (Latest Contact Info) Description 08/06/2024 Travel Social History Tobacco Use Types Packs/Day Years Used Date Smoking Tobacco: Former Cigarettes 0.5 8.5 S tarted: 04/18/2016 Smokeless Tobacco: Never Alcohol Use Standard Drinks/Week Comments Yes 0 (1 standard drink = 0.6 oz pur e alcohol) [facility] Utilities Answer Date Recorded In the past 12 months has [employer], gas, oil, or water [employer] threatened to shut off services in your home? Patient declined 08/01/2024 Social Connection and Isolation Panel [NHANES] A nswer Date Recorded In a typical week, how many times do you talk on the phone with family, friends, or neighbors? Patient declined 08/01/2024 How often do you get togethe r with friends or relatives? Patient declined 08/01/2024 How often do you attend baptist or worship serv ices? Patient declined 08/01/2024 [...] Patient declined 08/01/2024 [facility] of Occupat ional [facility] [...] st Contact Info) Description 11/15/2024 1:00 PM BUSINESS OPERATIONS COORDINATOR Lab [facility] [address] [place] [address] Markus Finley MD [address] [place] [address] 11/15/2024 2:00 PM BUSINESS OPERATIONS COORDINATOR [facility]ment [facility] [address] [place] [address] Markus Finley MD [address] [place] [address] Discharge Disposition: Discharged to home or Selfcare documented as of this encounter Visit Diagnoses Not on filedocumented in this encounter Care Teams Transportation Security Screener Relationship Specialty Start Date End Date Pritesh Chu MD [address] [place] [address] PCP - General Family Medicine 04/18/24 Markus Finley MD [address] [place] [address] Consulting Physician Medical Oncology 04/18/24 documented as of this encounter
--- OUTSIDE RECORDS SUMMARY | 2024-10-27 03:40 | XMS_ITS | Encounter Summary ---
Author Organization Down Care Team Providers Care Milling Machine Operator Name Role Phone Pritesh Chu MD Primary Care Provider [phone] Markus Finley MD Unavailable [phone] Encounter Details Date Type Department Care Team (Latest Contact Info) Description 08/10/2024 Travel Social History Tobacco Use Types Packs/Day Years Used Date Smoking Tobacco: Former Cigarettes 0.5 8.5 S tarted: 04/18/2016 Smokeless Tobacco: Never Alcohol Use Standard Drinks/Week Comments Yes 0 (1 standard drink = 0.6 oz pur e alcohol) [facility] Utilities Answer Date Recorded In the past 12 months has [employer], gas, oil, or water Spool threatened to shut off services in your home? Patient declined 08/01/2024 Social Connection and Isolation Panel [NHANES] A nswer Date Recorded In a typical week, how many times do you talk on the phone with family, friends, or neighbors? Patient declined 08/01/2024 How often do you get togethe r with friends or relatives? Patient declined 08/01/2024 How often do you attend restorationism or scientology serv ices? Patient declined 08/01/2024 [...] Patient declined 08/01/2024 [facility] Occupat ional [facility] - Occupational Stress Questionnaire Answer [...] st Contact Info) Description 11/15/2024 1:00 PM NUCLEAR SUPERVISING OPERATOR Lab [facility] Laboratory Services [address] [place] [address] Markus Finley MD [address] [place] [address] 11/15/2024 2:00 PM NUCLEAR SUPERVISING OPERATOR Appointment [facility] MRI [address] [place] [address] Markus Finley MD [address] [place] [address] Discharge Disposition: Discharged to home or Selfcare documented as of this encounter Visit Diagnoses Not on filedocumented in this encounter Care Teams Milling Machine Operator Relationship Specialty Start Date End Date Pritesh Chu MD [address] [place] [address] PCP - General Family Medicine 04/18/24 Markus Finley MD [address] [place] [address] Consulting Physician Medical Oncology 04/18/24 documented as of this encounter
--- OUTSIDE RECORDS SUMMARY | 2024-10-27 03:40 | XMS_ITS | Encounter Summary ---
Author Organization [facility] Address [address] [place] [address] Phone Care Team Providers Care Water Purifier Name Role Phone Pritesh Chu MD Primary Care Provider [phone] Markus Finley MD Unavailable [phone] Reason for Visit * Reason Onset Date Comments Transition of Care 08/04/2024 Encounter Details Date Type Department Care Team (Late st Contact Info) Description 08/04/2024 Patient Outreach [facility] Director Of Science Management [address] [place] [address] Yadira Gill, frame catcher of Care Social History Tobacco Use Types Packs/Day Years Used Date Smoking Tobacco: Former Cigarettes 0.5 8.5 S tarted: 04/18/2016 Smokeless Tobacco: Never Alcohol Use Standard Drinks/Week Comments Yes 0 (1 standard drink = 0.6 oz pur e alcohol) [facility] Utilities Answer Date Recorded [...] How often do you attend rastafari or roman catholic serv ices? Patient declined [...] 08/01/2024 [facility] of Occupat ional [facility] [...] 08/04/2024 4:16 PM CDT Pt d/c from [facility] 08/03 dx acute renal failure d/t nausea/vomiting/dehydration 1st attempt NO answer * Yadira Gill RN - 08/04/2024 4:16 PM CDT 2nd attempt NO answer -letter sent documented in this encounter Plan of Treatment Upcoming Encounters Date Type Department Care Team (Late st Contact Info) Description 11/15/2024 1:00 PM MECHANICAL MANAGER Lab [facility] Laboratory Services [address] [place] [address] Markus Finley MD [address] [place] [address] 11/15/2024 2:00 PM MECHANICAL MANAGER Appointment [facility] Emergency Department MRI 1 [facility] [place] [address] Markus Finley MD [address] [place] [address] Discharge Disposition: Discharged to home or Selfcare documented as of this encounter Visit Diagnoses Not on filedocumented in this encounter Care Teams Water Purifier Relationship Specialty Start Date End Date Pritesh Chu MD [address] [place] [address] PCP - General Family Medicine 04/18/24 Markus Finley MD [address] [place] [address] Consulting Physician Medical Oncology 04/18/24 documented as of this encounter
--- OUTSIDE RECORDS SUMMARY | 2024-10-27 03:40 | XMS_ITS | Encounter Summary ---
Author Organization [facility] Address [address] [place] [address] Phone Care Team Providers Care Legal Executive Assistant Name Role Phone Kellen Chu MD Primary Care Provider [phone] Markus Finley MD Unavailable [phone] Reason for Visit * Reason Comments Dehydration * Auth/Cert (Routine) Specialty Diagnoses / Procedures Referred By Contross t Referred To Contact Diagnoses Acute renal failure, unspecified acute renal failure type (HCC) Diarrhea, unspecified type Nausea and vomiting, unspecified vomiting type Lee Lan MD [address] [place] [address] Phone: tel: fax: Referral ID Status Reason Start Date Expiration Date Visits Re quested Visits Authorized [id number] 1 1 Encounter Details Date Type Department Care Team (Latest Contact Info) Description 08/01/2024 12:38 PM CDT - 08/03/2024 6:15 PM CDT Hospital Encounter [facility] Med Surg [address] [place] [id number] Graciela Jonas, PAC [address] [place] [address] Gael Morales MD [address] [place] [address] Lee Lan MD [address] [place] [address] Acute renal failure, unspecified acute renal failure [...] Recorded In the past 12 months has [employer], gas, oil, or water [employer] threatened to shut off services in your home? Patient declined 08/01/2024 Social Connection and Isolation Panel [NHANES] A nswer Date Recorded In a typical week, how many times do you talk on the phone with family, friends, or neighbors? Patient declined 08/01/2024 How often do you get togethe r with friends or relatives? Patient declined 08/01/2024 How often do you attend episcopal or latter-day serv ices? Patient declined 08/01/2024 [...] the original note were not included. [facility] DISCHARGE SUMMARY Name: Dayanara Hilton Age: 24 [...] 1 week(s) [address] [place] [address] [facility] Services Call in 1 week(s) [address] [facility] [address] Markus Finley MD Medical Oncology, Hematology, Internal Medicine Call in 1 week(s) [address] [facility] [address] Discharge Instructions: Discharge Condition: improved Disposition: [facility] Referral. Face to Face Encounter completed [...] diarrhea secondary to immunotherapy, who presented to [facility] with complaints of intractable nausea and vomiting.Patient was [facility] from 07/23 through 9173 intractable nausea vomiting with diarrhea causing dehydration. He was treated with aggressive IV hydration and supplements and discharged home. Patient returned to the ED again for similar symptoms and was hospitalized from 07/25 through 07/30.She was diagnosed with acute renal failure and seen by electrical wirer. Patient had a negative stool culture as [...] Dr. Finley and was immediately sent to [facility] ED for further evaluation. Laboratory data [...] HGBA1C 5.5 07/24/2024 No results found for: [id number] No results found for: CPK , CPKI , CKMB , CKMBNI , CKMBPOCT , CKMBRELINDX , TROPONINI , POCTRP No results found for: FERRITIN No results found for: FOLATE No results found for: PHARTERIAL , PO2ART , DBY6GLK , CO2ART , O2ART Lab Results Component [...] these medications potassium chloride SA 20 MEQ Mki-[id number]-hof Commonly known as: KLORCON M Where to [...] Thank you very much for allowing the [facility] Adult Hospitalist Service to participate in [...] IV fluids normal saline daily via port. [address] mL 08/03/2024 documented as of this encounter Progress Notes * Urbano Quiñonez MD - 08/03/2024 6:42 AM CDT Nephrology Progress Note [facility] ASSESSMENT: ALEXX-Probably Prerenal and Immunotherapy [...] MD - 08/02/2024 11:12 AM CDT [facility] IN[facility]IENT DAILY PROGRESS NOTE Dayanara Hilton is [...] results found for: PHARTERIAL , PO2ART , UJJ9NLG , CO2ART , O2ART No results for [...] LACTICA 1.3 07/23/2024 No results found for: [id number] No results found for: FERRITIN No results found for: GLUCOSEPOCT High Sensitivity Troponin: No results found for: HSTRP No results found for: DDIMER EKG: EKG 12 LEAD Result Date: 07/24/[address] & T wave abnormality, consider lateral ischemia Abnormal ECG No previous ECGs available Confirmed by Emily Hall ([id number]) on 07/24/2024 9:19:48 AM Imaging: No results found. By: Lee Lan MD, 08/02/2024 4:52 PM CDT documented in this encounter H&P Notes * Lee Lan MD - 08/01/2024 2:32 PM CDT [facility] ADMISSION HISTORY & PHYSICAL HPI: Dayanara Hilton is a 24 y.o. female who is known to me from his admission with melanoma of her left foot status post surgery with a skin graft in his undergoing immunotherapy with oncologist Dr. 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 [facility] intractable nausea vomiting with diarrhea causing dehydration. He was treated with aggressive IV hydration and supplements and discharged home. Patient returned to the ED again for similar symptoms and was hospitalized from 07/25 through 07/30.She was diagnosed with acute renal failure and seen by electrical wirer. Patient had a negative stool culture as [...] results found for: PHARTERIAL , PO2ART , AVS9RAI , CO2ART , O2ART No results found [...] with patient and/or family and/or Power of Bend Up approximately 16 minutes. Discussed CPR/Intubation/Treatment Goals/Quality of life/Intensity of Care. Patient desires: Full Code VTE Prophylaxis: Lovenox 40mg Q24h Treatment Team: Consulting Physician: Markus Finley MD Thank you very much for allowing the [facility] Adult Hospitalist Service to participate in the care of this patient By: Esteban Mcgovern APRN, CNP, 08/01/2024, 2:32 PM CDT Primary Care Physician: KELLEN CHU MD documented in this encounter Consult Notes * Urbano Quiñonez MD - 08/02/2024 8:19 AM CDTAssociated Order(s): IP CONSULT TO NEPHROLOGY Nephrology Consult [facility] Reason for Consult: @NEPHROCONSULTREASON@ Requesting [...] 1 Tablet Oral 4x Daily Esteban Mcgovern, CLOTH PICKER, PROTECTION MGR metroNIDAZOLE (FLAGYL) IV 500 mg 500 mg [...] Session: Patient declined Stress: Patient Declined (07/25/2024) [facility] - Occupational Stress Questionnaire Feeling of Stress : Patient declined Recent Concern: Stress - Stress Concern Present (06/27/2024) [facility] - Occupational Stress Questionnaire Feeling of Stress : To some extent Social Integration: Patient Declined (07/25/2024) Social Connection and Isolation Panel [NHANES] Frequency of Communication with Friends and Family: Patient declined Frequency of Social Gatherings with Friends and Family: Patient declined Attends Spiritism Services: Patient declined Active Member of Clubs [...] More than three times a week Attends Spiritism Services: Never Active Member of Clubs or [...] and steroids. CM discussed this with Oncology expenditure requisition clerk Marie who has scheduled her on Tuesday to get these supplement infusions. Information is on her AVS. Discharge Plan Notification/ Verification Patient's Phone numbers: [phone] (home) Patient's preferred discharge phone number for [...] Luz Cruz - 08/03/2024 11:10 AM CDT Shipfitter Coordination Note SUMMARY - Shipfitter currently working the potential transition plan(s): 08/02/2024 [...] all question regarding hospital transition to the Cycle Manager) Readmission risk level (if calculated) is: [...] Ida Contact 08/03/2024 @ 11:10 AM CDT ([facility], ) Text from Ida, they are unable to accommodate pt. Informed CMOlivia via secure chat 08/03/2024 @ 10:13 AM CDT ([facility], ) Text from Ida stating they are reviewing benefits and request. This is done on a case by case basis and she will keep us posted. MORALES Ontiveros aware 08/02/2024 @ 4:15 PM CDT ([facility], ) Referral sent via Eferio fax. Notified Ida via text * Interdisciplinary [...] (compare to working DRG): 1 Reason for Cycle ManagerServices Rep: High Risk for Readmission (High, Medium- High) [...] [facility] (HIP) 08/02/24 Patient/ patient aircraft sales representative's preferences regarding the discharge plan: return [...] Luz Coronado - 08/02/2024 8:29 AM CDT Shipfitter Coordination Note SUMMARY - Shipfitter currently working the potential transition plan(s): 08/02/2024 @ 4:15 PM CDT ([facility], ) [facility]acy [HIP] 08/02/2024 @ 8:29 AM CDT ([facility], ) Follow Up Appointment (See detail within the referral type(s) below for information on what is needed to complete coordination Note - the Transition Specialists do not coordinate all transition types - please direct all question regarding hospital transition to the Cycle Manager) Readmission risk level (if calculated) is: [...] Ida Contact 08/02/2024 @ 4:15 PM CDT ([facility], ) Referral sent via Eferio fax. Notified Ida via text * Interdisciplinary [...] Contact Info) Description 11/15/2024 1:00 PM HOME DEMONSTRATION AGENT Lab [facility] Laboratory Services [address] [place] [address] Markus Finley MD [address] [place] [address] 11/15/2024 2:00 PM HOME DEMONSTRATION AGENT [facility]ointment [facility] MRI [address] [place] [address] Markus Finley MD [address] [place] [address] Discharge Disposition: Discharged to home or Selfcare [...] - 107 mmol/L 08/10/2024 11:56 AM CDT [facility] CO2, VENOUS 23 22 - 30 mmol/L 08/10/2024 11:56 AM CDT [facility] ANION GAP 8.9 <18.0 mmol/L 08/10/2024 11:56 AM CDT [facility] GLUCOSE 138(H) 70 - 99 mg/dL 08/10/2024 11:56 AM CDT [facility] BUN 15 5 - 18 mg/dL 08/10/2024 11:56 AM CDT [facility] CREATININE, BLOOD 0.86 0.60 - 1.00 mg/dL 08/10/2024 11:56 AM CDT [facility] BUN/CREATININE RATIO 17 12 - 20 ratio 08/10/2024 11:56 AM CDT [facility] CALCIUM 8.9 8.7 - 10.5 mg/dL 08/10/2024 11:56 AM CDT [facility] GFR, ESTIMATED >60 >=60 08/10/2024 11:56 AM CDT [facility] Comment: Creatinine Clearance is the preferred criteria for selecting drug dose adjustments in renally impaired patients. ??The GFR is provided as additional pertinent clinical information. GFR is reported in mL/min/1.73 sq m. Calculation based on the Chronic Kidney Disease Epidemiology Collaboration (CKD- EPI) equation refit without adjustment for race. GFR, EST. >60 >=60 024 11:56 AM CDT [facility] GFR, EST. NONAFRICAN >60 >=60 08/10/2024 11:56 AM CDT [facility] Blood Sub-Q Port Venou s Access Device (Medi-Port, Implanted Port) / Unknown 08/10/2024 11:20 AM CDT 08/10/2024 11:20 AM CDT Lee Lan MD CHEMISTRY ORDERABLES Fin al Result [facility] LAB [address] [place] [address] * (ABNORMAL) CBC with Auto Differential (08/03/2024 4:32 AM CDT) Only the most recent of2 resultswithin the time period is included. WBC 8.19 4.00 - 12.00 10(3)/mcL 08/03/2024 7:29 AM CDT [facility] RBC 4.01 3.80 - 5.30 10(6)/mcL 08/03/2024 7:29 AM CDT [facility] HEMOGLOBIN (HGB) 12.1 12.0 - 15.8 g/dL 08/03/2024 7:29 AM CDT [facility] HEMATOCRIT (HCT) 35.4(L) 36.0 - 47.0 % 08/03/2024 7:29 AM CDT [facility] MCV 88.3 82.0 - 96.0 fL 08/03/2024 7:29 AM CDT [facility] MCH 30.2 26.0 - 34.0 pg 08/03/2024 7:29 AM CDT [facility] MCHC 34.2 31.0 - 36.0 g/dL 08/03/2024 7:29 AM CDT [facility] PLATELET COUNT 225 140 - 440 10(3)/[facility] 08/03/2024 7:29 AM CDT [facility] RDW 13.7 11.8 - 15.5 % 08/03/2024 7:29 AM CDT [facility] MPV 10.2 9.7 - 12.4 fL 08/03/2024 7:29 AM CDT [facility] NEUTROPHILS 90.3(H) 47.0 - 73.0 % 08/03/2024 7:29 AM CDT [facility] LYMPHOCYTES 4.8(L) 18.0 - 42.0 % 08/03/2024 7:29 AM CDT [facility] MONOCYTES 4.8 4.0 - 12.0 % 08/03/2024 7:29 AM CDT [facility] EOSINOPHILS 0.0 0.0 - 5.0 % 08/03/2024 7:29 AM CDT [facility] BASOPHILS 0.1 0.0 - 1.0 % 08/03/2024 7:29 AM CDT [facility] ABSOLUTE NEUTROPHILS 7.40 1.60 - 7.70 10(3)/[facility] 08/03/2024 7:29 AM CDT [facility] ABSOLUTE LYMPHOCYTES 0.39(L) 1.30 - 3.20 10(3)/[facility] 08/03/2024 7:29 AM CDT [facility] ABSOLUTE MONOCYTES 0.39 0.20 - 1.00 10(3)/[facility] 08/03/2024 7:29 AM CDT [facility] ABSOLUTE EOSINOPHIL 0.00 0.00 - 0.40 10(3)/[facility] 08/03/2024 7:29 AM CDT [facility] ABSOLUTE BASOPHILS 0.01 0.00 - 0.10 10(3)/mcL 08/03/2024 7:29 AM CDT [facility] NRBC PER 100 WBC 0 08/03/20 7:29 AM CDT [facility] RESULTS ARE CONSISTENT WITH PERIPHERAL SMEAR REVIEW Yes 08/03/2024 7:29 AM CDT [facility] RBC MORPHOLOGY CONSISTENT WITH INDICES Yes 08/03/2024 7:29 AM CDT [facility] Blood Venipuncture / Unknown 08/03/2024 4:32 AM CDT 08/03/2024 6:29 AM CDT Esteban Mcgovern CLOTH PICKER, PROTECTION MGR HEMATOLOGY ORDERABLES F inal Result Performing Organization Address City/[facility]/ZIP Co de Phone Number [facility] [address] [place] [address] * THYROXINE (T4) FREE (08/03/2024 4:32 AM CDT) T4 FREE 0.7 0.7 - 1.9 ng/dL 08/03/2024 7:20 AM CDT [facility] Blood Venipuncture / Unknown 08/03/2024 4:32 AM CDT 08/03/2024 6:28 AM CDT us Urbano Quiñonez MD CHEMISTRY ORDERABLES Final Result [facility] [address] [place] [address] * Triiodothyrinine (T3) Free (08/03/2024 4:32 AM CDT) FREE T3 1.6 1.6 - 3.9 pg/mL 08/03/2024 4:08 PM CDT [facility] Blood Venipuncture / Unknown 08/03/2024 4:32 AM CDT 08/03/2024 6:28 AM CDT Urbano Quiñonez MD CHEMISTRY ORDERABLES Final Result [facility] [address] [place] [address], [place] * RHYTHM STRIP (08/03/2024 12:00 AM CDT) Only the most recent of6 resultswithin the time period is included. 08/03/2024 us Provider Scan IMG ECG ORDERABLES Final Result Performing Organization Address City/[facility]/ZIP Co de Phone Number RESULTING AGENCY * C. DIFF BY PCR (08/01/2024 7:08 PM CDT) C DIFF TOXIN DNA BY PCR Negative Negative, Invalid 08/01/2024 7:56 PM CDT [facility] Other STOOL SPECIMEN / Unknown Non-Phlebotomy Collection / Unknown 08/01/2024 7:08 PM CDT 08/01/2024 7:08 PM CDT Gael Morales MD MICROBIOLOGY - GENERAL ORD ERABLES Final Result Performing Organization Address City/[facility]/ZIP Co de Phone Number [facility] [address] [place] [address] * Blood Culture #2 (08/01/2024 3:48 PM CDT) Only the most recent of2 resultswithin the time period is included. CULTURE RESULTS NO GROWTH WITHIN 5 DAYS, FINAL RESULT 08/06/2024 5:01 PM CDT [facility] Culture BLOOD SPECIMEN / Unknown Venipuncture / Unknown 08/01/2024 3:48 PM CDT 08/01/2024 4:10 PM CDT Gael Morales MD MICROBIOLOGY - GENERAL ORD ERABLES Final Result [facility] [address] [place] [address], [place] * XR CHEST SINGLE VIEW PORTABLE [...] PM T: ??08/01/2024 2:59 PM Report ID: [id number] Reading Location: ??[id number] Procedure Note Nisreen Lara MD - 08/01/2024 [...] Nisreen Esteban M.D. FT: FT Report ID: [id number] Reading Location: [id number] IMPRESSION: No acute cardiopulmonary abnormality. Result [facility] Gael Morales MD IMG DIAGNOSTIC [...] ?Care discussed with: admitting provider ?? Result [facility] Gael Morales MD PROCEDURE/MINOR SURGICAL O RDERABLES Final Result * RACHID MUIR HEPARIN/SST TOP TUBE (08/01/2024 1:30 PM CDT) Blood No Phlebotomy Charged / Unknown 08/01/2024 1:30 PM CDT 08/01/2024 1:30 PM CDT Result [facility] Gael Morales MD HEMATOLOGY ORDERABLES Susan l Result [facility] [address] [place] [address] * Lavender Top Tube (08/01/2024 1:30 PM CDT) Blood No Phlebotomy Charged / Unknown 08/01/2024 1:30 PM CDT 08/01/2024 1:30 PM CDT Gael Morales MD HEMATOLOGY ORDERABLES Susan l Result Performing Organization Address City/[facility]/ZIP Co de Phone Number [facility] [address] [place] [address] * Gold Top Tube (08/01/2024 1:30 PM CDT) Blood No Phlebotomy Charged / Unknown 08/01/2024 1:30 PM CDT 08/01/2024 1:30 PM CDT Gael Morales MD CHEMISTRY ORDERABLES Final Result Performing Organization Address City/[facility] Co de Phone Number [facility] [address] [place] [address] * Blue Top Tube (08/01/2024 1:30 PM CDT) Blood No Phlebotomy Charged / Unknown 08/01/2024 1:30 PM CDT 08/01/2024 1:30 PM CDT Gael Morales MD HEMATOLOGY ORDERABLES Susan l Result Performing Organization Address City/[facility]/ZIP Co de Phone Number [facility] [address] [place] [address] documented in this encounter Visit Diagnoses Diagnosis [...] 08/02/2024 11:27 PM CDT 150 mL/hr [facility] 08/02/2024 4:34 PM CDT 150 mL/hr [facility] 08/02/2024 9:47 AM CDT 150 mL/hr [...] Heartburn, Indigestion 1011 (Given - Provid er: Adraina Ryder RN) Heparin Na (Pork) Lock Flsh [...] documented as of this encounter Care Teams Legal Executive Assistant Relationship Specialty Start Date End Date Kellen Chu MD [address] [place] [address] PCP - General Family Medicine 04/18/24 Markus Finley MD [address] [place] [address] Consulting Physician Medical Oncology 04/18/24 documented as of this encounter
--- OUTSIDE RECORDS SUMMARY | 2024-10-27 03:40 | XMS_ITS | Encounter Summary ---
Author Organization [employer] Care Team Providers Care Stone Decorator Name Role Phone Pritesh Chu MD Primary Care Provider [phone] Markus Finley MD Unavailable [phone] Encounter Details Date Type Department Care Team (Latest Contact Info) Description 08/01/2024 Travel Social History Tobacco Use Types Packs/Day Years Used Date Smoking Tobacco: Former Cigarettes 0.5 8.5 S tarted: 04/18/2016 Smokeless Tobacco: Never Alcohol Use Standard Drinks/Week Comments Yes 0 (1 standard drink = 0.6 oz pur e alcohol) [facility] Utilities Answer Date Recorded In the past 12 months has [employer], gas, oil, or water [employer] [place] threatened to shut off services in your home? Patient declined 08/01/2024 Social Connection and Isolation Panel [NHANES] A nswer Date Recorded In a typical week, how many times do you talk on the phone with family, friends, or neighbors? Patient declined 08/01/2024 How often do you get togethe r with friends or relatives? Patient declined 08/01/2024 How often do you attend restoration or spiritism serv ices? Patient declined 08/01/2024 [...] 08/01/2024 [facility] of Occupat ional [facility] - Occupational Stress Questionnaire Answer [...] st Contact Info) Description 11/15/2024 1:00 PM DATABASE TESTER [facility] 1 [place] [phone] Markus Finley MD [address] [place] [address] 11/15/2024 2:00 PM DATABASE TESTER [facility]ointment [facility] MRI 1 [place] [phone] Markus Finley MD [address] [place] [address] Discharge Disposition: Discharged to home or Selfcare documented as of this encounter Visit Diagnoses Not on filedocumented in this encounter Additional Health Concerns Infection Onset Date Last Indicated Resolved Time C. difficile Rule-Out 08/01/2024 08/01/20242023 7:56 PM CDT documented as of this encounter Care Teams Stone Decorator Relationship Specialty Start Date End Date Pritesh Chu MD [address] [place] [address] PCP - General Family Medicine 04/18/24 Markus Finley MD [address] [place] [address] Consulting Physician Medical Oncology 04/18/24 documented as of this encounter
--- OUTSIDE RECORDS SUMMARY | 2024-10-27 03:41 | XMS_ITS | Encounter Summary ---
Author Organization [facility] Address [address] [place] [address] Phone Care Team Providers Care Mold Cleaner Name Role Phone Pritesh Chu MD Primary Care Provider [phone] Markus Finley MD Unavailable [phone] Encounter Details Date Type Department Care Team (Late st Contact Info) Description 06/26/2024 Telephone [facility] Oncology Services [address] [place] [phone] Markus Finley MD [address] [place] [address] Social History Tobacco Use Types Packs/Day Years Used Date Smoking Tobacco: Former Cigarettes 0.5 8.5 S tarted: 04/18/2016 Smokeless Tobacco: Never Alcohol Use Standard Drinks/Week Comments Yes 0 (1 standard drink = 0.6 oz pur e alcohol) [facility] Utilities Answer Date Recorded [...] and heating? Not hard at all 06/27/2024 [facility] of Occupat ional Health [...] Contact Info) Description 11/15/2024 1:00 PM COMPRESSOR STATION CHIEF ENGINEER Lab [facility] Laboratory Services 1 [place] [address] Markus Finley MD [address] [place] [address] 11/15/2024 2:00 PM COMPRESSOR STATION CHIEF ENGINEER Appointment [facility] MRI 1 [facility] [place] [address] Markus Finley MD [address] [place] [address] Discharge Disposition: Discharged to home or Selfcare documented as of this encounter Visit Diagnoses Not on filedocumented in this encounter Care Teams Mold Cleaner Relationship Specialty Start Date End Date Pritesh Chu MD [address] [place] [address] PCP - General Family Medicine 04/18/24 Markus Finley MD [address] [place] [address] Consulting Physician Medical Oncology 04/18/24 documented as of this encounter
--- OUTSIDE RECORDS SUMMARY | 2024-10-27 03:41 | XMS_ITS | Encounter Summary ---
Author Organization [facility] Address [address] [place] [address] Phone Care Team Providers Care Mid Teacher Name Role Phone Pritesh Chu MD Primary Care Provider [phone] Markus Finley MD Unavailable [phone] Reason for Referral * Radiology Services (Routine) - Closed Specialty Diagnoses / Procedures Referred By Delbert villareal Referred To Contact Radiology Diagnoses Metastatic melanoma (HCC) Procedures PET CT TUMOR IMAGING SKULL BASE TO MID THIGH PET CT TUMOR IMAGING SKULL BASE TO MID THIGH Markus Finley MD [address] [place] [address] Phone: tel: fax: [facility] [address] [place] [phone] Phone: tel: fax: Referral ID Status Reason Start Date Expiration Date Visits Re quested Visits Authorized [id number] Closed 07/12/2024 1 1 Reason for Visit * Reason Comments 1 week f/u * Episode Based Medications (Routine) - Closed Specialty Diagnoses / Procedures Referred By Delbert t Referred To Contact Diagnoses Metastatic melanoma (HCC) Markus Finley MD [address] [place] [address] Phone: tel: fax: [facility] [address] [place] [phone] Phone: tel: fax: Referral ID Status Reason Start Date Expiration Date Visits Re quested Visits Authorized [id number] Closed 04/19/2024 1 30 Encounter Details Date Type Department Care Team (Late st Contact Info) Description 07/12/2024 10:20 AM CDT Office Visit [facility] Services [address] [place] [phone] [place] [address] [place] [address] Metastatic melanoma (HCC) (Primary Dx); Immunotherapy; [...] Recorded In the past 12 months has [employer], oil, or water [employer] threatened to shut off services in your home? Patient declined 08/01/2024 Social Connection and Isolation Panel [NHANES] A nswer Date Recorded In a typical week, how many times do you talk on the phone with family, friends, or neighbors? Patient declined 08/01/2024 How often do you get togethe r with friends or relatives? Patient declined 08/01/2024 How often do you attend hoahaoism or voodoo serv ices? Patient declined 08/01/2024 [...] Patient declined 08/01/2024 [facility] of Occupat ional [facility] [...] IMAGING STUDIES: CT abdomen pelvis done at [facility] on 06/27/2024 No evidence of appendicitis. No [...] complete labs Tuesday prior to treatment at [facility]. Patient will remain on current interventions; Prednisone, [...] go to exchange after hours. 9. Check [id number] in the blood today. Tempus XT on [...] IMAGING STUDIES: CT abdomen pelvis done at [facility] on 06/27/2024 No evidence of appendicitis. No [...] complete labs Tuesday prior to treatment at [facility]. Patient will remain on current interventions; Prednisone, [...] go to exchange after hours. 9. Check [id number] in the blood today. Tempus XT on [...] for Markus Moses MD. 09/16/2024, 10:44 AM PURCHASING EXPEDITOR The documentation recorded by the scribe was completed while in the exam room with me and the patient. The documentation accurately reflects the service I personally performed and the decisions made by me. I have confirmed and edited the documentation as necessary. Markus Finley MD 09/16/2024, 10:44 AM PURCHASING EXPEDITOR HASING EXPEDITOR documented in this encounter Miscellaneous Notes * [...] st Contact Info) Description 11/15/2024 1:00 PM PURCHASING EXPEDITOR [facility] Services 1 [place] [address] Markus Finley MD [address] [place] [address] 11/15/2024 2:00 PM PURCHASING EXPEDITOR [facility]ment [facility] 1 [place] [address] Markus Finley MD [address] [place] [address] Discharge Disposition: Discharged to home or Selfcare [...] Diarrhea documented in this encounter Care Teams Mid Teacher Relationship Specialty Start Date End Date Pritesh Chu MD [address] [place] [address] PCP - General Family Medicine 04/18/24 Markus Finley MD [address] [place] [address] Consulting Physician Medical Oncology 04/18/24 documented as of this encounter
--- OUTSIDE RECORDS SUMMARY | 2024-10-27 03:41 | XMS_ITS | Encounter Summary ---
Author Organization [facility] Address [address] [facility] [place] [address] Phone Care Team Providers Care Clam Shucker Name Role Phone Pritesh Chu MD Primary Care Provider [phone] Markus Finley MD Unavailable [phone] Encounter Details Date Type Department Care Team (Late st Contact Info) Description 04/18/2024 3:20 PM CDT Clinical Support [facility] Oncology Services [address] [place] [phone] Markus Finley MD [address] [place] [address] Iron deficiency anemia due to chronic blood [...] st Contact Info) Description 11/15/2024 1:00 PM SORTING MACHINE OPERATOR [facility] 1 [place] [address] Markus Finley MD [address] [place] [address] 11/15/2024 2:00 PM SORTING MACHINE OPERATOR [facility]ment [facility] 1 [place] [address] Markus Finley MD [address] [place] [address] Discharge Disposition: Discharged to home or Selfcare [...] Units documented in this encounter Care Teams Clam Shucker Relationship Specialty Start Date End Date Pritesh Chu MD [address] [address] PCP - General Family Medicine 04/18/24 Markus Finley MD [address] [place] [address] Consulting Physician Medical Oncology 04/18/24 documented as of this encounter
--- OUTSIDE RECORDS SUMMARY | 2024-10-27 03:41 | XMS_ITS | Encounter Summary ---
Author Organization [employer] Care Team Providers Care Crusher And Blender Operator Name Role Phone Pritesh Chu MD Primary Care Provider [phone] Markus Finley MD Unavailable [phone] Encounter Details Date Type Department Care Team (Latest Contact Info) Description 07/05/2024 Travel Social History Tobacco Use Types Packs/Day Years Used Date Smoking Tobacco: Former Cigarettes 0.5 8.5 S tarted: 04/18/2016 Smokeless Tobacco: Never Alcohol Use Standard Drinks/Week Comments Yes 0 (1 standard drink = 0.6 oz pur e alcohol) [facility] Utilities Answer Date Recorded In the past 12 months has [employer], gas, oil, or water [employer] threatened to shut off services in your [...] often do you attend chur ch or latter day services? Never 06/27/2024 Do you belong to [...] heating? Not hard at all 06/27/2024 [facility] of Occupat ional Health - Occupational Stress [...] any time in the past 12 m [facility], were you homeless or [...] st Contact Info) Description 11/15/2024 1:00 PM DISTRIBUTION CENTER SUPERVISOR [facility] Services 1 [place] [address] Markus Finley MD [address] [place] [address] 11/15/2024 2:00 PM DISTRIBUTION CENTER SUPERVISOR [facility]ointment [facility] 1 [place] [address] Markus Finley MD [address] [place] [address] Discharge Disposition: Discharged to home or Selfcare documented as of this encounter Visit Diagnoses Not on filedocumented in this encounter Care Teams Crusher And Blender Operator Relationship Specialty Start Date End Date Pritesh Chu MD [address] [address] PCP - General Family Medicine 04/18/24 Markus Finley MD [address] [place] [address] Consulting Physician Medical Oncology 04/18/24 documented as of this encounter
--- OUTSIDE RECORDS SUMMARY | 2024-10-27 03:41 | XMS_ITS | Encounter Summary ---
Author Organization [employer] Care Team Providers Care Studio Set Up Worker Name Role Phone Pritesh Chu MD Primary Care Provider [phone] Markus Finley MD Unavailable [phone] Encounter Details Date Type Department Care Team [...] Recorded In the past 12 months has [employer], gas, oil, or water [employer] threatened to shut off services in your [...] attend chur ch or judaism services? Never 06/27/2024 Do you belong to [...] and heating? Not hard at all 06/27/2024 [facility] [place] of Occupat ional Health - Occupational Stress [...] Contact Info) Description 11/15/2024 1:00 PM MANAGER ARMY Lab [facility] 1 [place] [address] Markus Finley MD [address] [place] [address] 11/15/2024 2:00 PM MANAGER ARMY [facility]ointment [facility] 1 [place] [address] Markus Finley MD [address] [place] [address] Discharge Disposition: Discharged to home or Selfcare documented as of this encounter Visit Diagnoses Not on filedocumented in this encounter Care Teams Studio Set Up Worker Relationship Specialty Start Date End Date Pritesh Chu MD [address] [place] [address] PCP - General Family Medicine 04/18/24 Markus Finley MD [address] [place] [address] Consulting Physician Medical Oncology 04/18/24 documented as of this encounter
--- OUTSIDE RECORDS SUMMARY | 2024-10-27 03:41 | XMS_ITS | Encounter Summary ---
Author Organization [employer] Care Team Providers Care Rural Mail Carrier Name Role Phone Pritesh Chu MD Primary Care Provider [phone] Markus Finley MD Unavailable [phone] Encounter Details Date Type Department Care Team [...] Recorded In the past 12 months has [employer], gas, oil, or water [employer] threatened to shut off services in your [...] and heating? Not hard at all 06/27/2024 [facility] [place] of Occupat ional Health - Occupational Stress [...] st Contact Info) Description 11/15/2024 1:00 PM CIRCULAR SAW EDGE FUSER Lab [facility] Services 1 [place] [address] Markus Finley MD [address] [place] [address] 11/15/2024 2:00 PM CIRCULAR SAW EDGE FUSER [facility]ointment [facility] 1 [place] [address] Markus Finley MD [address] [place] [address] Discharge Disposition: Discharged to home or Selfcare documented as of this encounter Visit Diagnoses Not on filedocumented in this encounter Care Teams Rural Mail Carrier Relationship Specialty Start Date End Date Pritesh Chu MD [address] [place] [address] PCP - General Family Medicine 04/18/24 Markus Finley MD [address] [place] [address] Consulting Physician Medical Oncology 04/18/24 documented as of this encounter
--- OUTSIDE RECORDS SUMMARY | 2024-10-27 03:41 | XMS_ITS | Encounter Summary ---
Author Organization [employer] Care Team Providers Care Foundation Drill Operator Helper Name Role Phone Pritesh Chu MD Primary Care Provider [phone] Markus Finley MD Unavailable [phone] Encounter Details Date Type Department Care Team [...] Recorded In the past 12 months has [employer], gas, oil, or water [employer] threatened to shut off services in your [...] attend chur ch or worship services? Never 06/27/2024 Do you belong to [...] and heating? Not hard at all 06/27/2024 [facility] [place] of Occupat ional Health - Occupational Stress [...] any time in the past 12 m [facility], were you homeless or living [...] st Contact Info) Description 11/15/2024 1:00 PM STUDENT SUPPORT ADVISOR Lab [facility] Laboratory Services 1 [place] [address] Markus Finley MD [address] [place] [address] 11/15/2024 2:00 PM STUDENT SUPPORT ADVISOR [facility]ment [facility] MRI 1 [place] [address] Markus Finley MD [address] [place] [address] Discharge Disposition: Discharged to home or Selfcare documented as of this encounter Visit Diagnoses Not on filedocumented in this encounter Care Teams Foundation Drill Operator Helper Relationship Specialty Start Date End Date Pritesh Chu MD [address] [place] [address] PCP - General Family Medicine 04/18/24 Markus Finley MD [address] [place] [address] Consulting Physician Medical Oncology 04/18/24 documented as of this encounter
--- OUTSIDE RECORDS SUMMARY | 2024-10-27 03:41 | XMS_ITS | Encounter Summary ---
Author Organization [facility] Address [address] [facility] [place] [address] Phone Care Team Providers Care Pc Analyst Name Role Phone Pritesh Chu MD Primary Care Provider [phone] Markus Finley MD Unavailable Encounter Details Date Type Department Care Team (Latest Contact Info) Description 07/10/2024 1:00 PM CDT Clinical Support [facility] Oncology Services [address] [place] [address] Jenn Medellin [place], [address] [place] [address] Metastatic melanoma (HCC); Hypokalemia due to excessive gastrointestinal loss of potassium Discharge Disposition: Discharged to home or Selfcare Social History Tobacco Use Types Packs/Day Years Used Date Smoking Tobacco: Former Cigarettes 0.5 8.5 S tarted: 04/18/2016 Smokeless Tobacco: Never Alcohol Use Standard Drinks/Week Comments Yes 0 (1 standard drink = 0.6 oz pur e alcohol) [facility] Utilities Answer Date Recorded In the past 12 months has [employer], gas, oil, or water company threatened to [...] and heating? Not hard at all 06/27/2024 [facility] of Occupat ional [facility] - Occupational Stress Questionnaire Answer Date [...] any time in the past 12 m [facility], were you homeless or living in [...] Contact Info) Description 11/15/2024 1:00 PM ELECTRIC TRANSFER OPERATOR Lab [facility] Laboratory Services 1 [place] [address] Markus Finley MD [address] [place] [address] 11/15/2024 2:00 PM ELECTRIC TRANSFER OPERATOR [facility] 1 [place] [address] Markus Finley MD [address] [place] [address] Discharge Disposition: Discharged to home or Selfcare documented as of this encounter Procedures Procedure Name Priority Date/Time Associated Diagnosis Comments CMP (COMPREHENSIVE METABOLIC PANEL) STAT 07/10/2024 1:28 PM CDT Metastatic melanoma (HCC) documented in this encounter Results * (ABNORMAL) CMP (COMPREHENSIVE METABOLIC PANEL) (07/10/2024 1:28 PM CDT) SODIUM 133(L) 136 - 145 mmol/L 07/10/2024 1:53 PM CDT [facility] POTASSIUM 3.9 3.5 - 5.1 mmol/L 07/10/2024 1:53 PM CDT [facility] CHLORIDE 109(H) 98 - 107 mmol/L 07/10/2024 1:53 PM CDT [facility] CO2, VENOUS 18(L) 22 - 30 mmol/L 07/10/2024 1:53 PM CDT [facility] ANION GAP 9.9 <18.0 mmol/L 07/10/2024 1:53 PM CDT [facility] GLUCOSE 143(H) 70 - 99 mg/dL 07/10/2024 1:53 PM CDT [facility] BUN 4(L) 5 - 18 mg/dL 07/10/2024 1:53 PM CDT [facility] CREATININE, BLOOD 0.85 0.60 - 1.00 mg/dL 07/10/2024 1:53 PM CDT [facility] BUN/CREATININE RATIO 5(L) 12 - 20 ratio 07/10/2024 1:53 PM CDT [facility] TOTAL PROTEIN 5.8(L) 6.3 - 8.2 g/dL 07/10/2024 1:53 PM CDT [facility] ALBUMIN 3.3(L) 3.5 - 5.0 g/dL 07/10/2024 1:53 PM CDT [facility] A/G RATIO 1.3 1.0 - 2.2 07/10/2024 1:53 PM CDT [facility] CALCIUM 8.6(L) 8.7 - 10.5 mg/dL 07/10/2024 1:53 PM CDT [facility] T BILI 0.4 0.2 - 1.2 mg/dL 07/10/2024 1:53 PM CDT [facility] SGOT (AST) 20 5 - 34 U/L 07/10/2024 1:53 PM CDT [facility] SGPT (ALT) 44 0 - 55 U/L 07/10/2024 1:53 PM CDT [facility] ALKALINE PHOSPHATASE 74 40 - 150 U/L 07/10/2024 1:53 PM CDT [facility] IS THE PATIENT REQUIRED TO BE FASTING? No 07/10/2024 1:53 PM CDT [facility] GFR, ESTIMATED >60 >=60 07/10/2024 1:53 PM CDT [facility] Comment: Creatinine Clearance is the preferred criteria for selecting drug dose adjustments in renally impaired patients. ??The GFR is provided as additional pertinent clinical information. GFR is reported in mL/min/1.73 sq m. Calculation based on the Chronic Kidney Disease Epidemiology Collaboration (CKD- EPI) equation refit without adjustment for race. GFR, EST. >60 >=60 024 1:53 PM CDT [facility] GFR, EST. NONAFRICAN >60 >=60 07/10/2024 1:53 PM CDT [facility] Blood Sub-Q Port Venou s Access Device (Medi-Port, Implanted Port) / Unknown 07/10/2024 1:28 PM CDT 07/10/2024 1:28 PM CDT us Markus Finley MD CHEMISTRY ORDERABLES Jacob al Result [facility] [address] [place] [address] documented in this encounter Visit Diagnoses Diagnosis [...] mEq documented in this encounter Care Teams Pc Analyst Relationship Specialty Start Date End Date Pritesh Chu MD [address] [place] [address] PCP - General Family Medicine 04/18/24 Markus Finley MD [address] [place] [address] Consulting Physician Medical Oncology 04/18/24 documented as of this encounter
--- OUTSIDE RECORDS SUMMARY | 2024-10-27 03:41 | XMS_ITS | Encounter Summary ---
Author Organization [facility] Address [address] [facility] [place] [address] Phone Care Team Providers Care Patient Registration Supervisor Name Role Phone Pritesh Chu MD Primary Care Provider [phone] Markus Finley MD Unavailable [phone] Encounter Details Date Type Department Care Team (Late st Contact Info) Description 07/04/2024 10:30 AM CDT Clinical Support [facility] Oncology Services [address] [place] [address] Markus Finley MD [address] [place] [address] Metastatic melanoma (HCC) Discharge Disposition: Discharged to home or Selfcare Social History Tobacco Use Types Packs/Day Years Used Date Smoking Tobacco: Former Cigarettes 0.5 8.5 S tarted: 04/18/2016 Smokeless Tobacco: Never Alcohol Use Standard Drinks/Week Comments Yes 0 (1 standard drink = 0.6 oz pur e alcohol) [facility] Utilities Answer Date Recorded In the past 12 months has [employer], gas, oil, or water [employer] threatened to shut off services in your [...] heating? Not hard at all 06/27/2024 [facility] - [...] 80mg of prednisone this morning. Patient to turkey picker potassium from the pharmacy tonight. Patient [...] Contact Info) Description 11/15/2024 1:00 PM POLICE SURGEON Lab [facility] 1 [place] [address] Markus Finley MD [address] [place] [address] 11/15/2024 2:00 PM POLICE SURGEON [facility]ment [facility] 1 [place] [address] Markus Finley MD [address] [place], [place] [id number] Discharge Disposition: Discharged to home or Selfcare documented as of this encounter Procedures Procedure Name Priority Date/Time Associated Diagnosis Comments CMP (COMPREHENSIVE METABOLIC PANEL) STAT 07/04/2024 10:53 AM CDT Metastatic melanoma (HCC) documented in this encounter Results * (ABNORMAL) CMP (COMPREHENSIVE METABOLIC PANEL) (07/04/2024 10:53 AM CDT) SODIUM 128(L) 136 - 145 mmol/L 07/04/2024 11:41 AM CDT [facility] POTASSIUM 2.7(LL) 3.5 - 5.1 mmol/L 07/04/2024 11:41 AM CDT [facility] CHLORIDE 102 98 - 107 mmol/L 07/04/2024 11:41 AM CDT [facility] CO2, VENOUS 17(L) 22 - 30 mmol/L 07/04/2024 11:41 AM T [facility] ANION GAP 11.7 <18.0 mmol/L 07/04/2024 11:41 AM T [facility] GLUCOSE 150(H) 70 - 99 mg/dL 07/04/2024 11:41 AM CDT [facility] BUN 11 5 - 18 mg/dL 07/04/2024 11:41 AM CDT [facility] CREATININE, BLOOD 1.00 0.60 - 1.00 mg/dL 07/04/2024 11:41 AM T [facility] BUN/CREATININE RATIO 11(L) 12 - 20 ratio 07/04/2024 11:41 AM T [facility] TOTAL PROTEIN 6.5 6.3 - 8.2 g/dL 07/04/2024 11:41 AM T [facility] ALBUMIN 3.6 3.5 - 5.0 g/dL 07/04/2024 11:41 AM T [facility] A/G RATIO 1.2 1.0 - 2.2 07/04/2024 11:41 AM T [facility] CALCIUM 8.8 8.7 - 10.5 mg/dL 07/04/2024 11:41 AM [facility] T BILI 0.7 0.2 - 1.2 mg/dL 07/04/2024 11:41 AM T [facility] SGOT (AST) 19 5 - 34 U/L 07/04/2024 11:41 AM T [facility] SGPT (ALT) 50 0 - 55 U/L 07/04/2024 11:41 AM T [facility] ALKALINE PHOSPHATASE 67 40 - 150 U/L 07/04/2024 11:41 AM T [facility] IS THE PATIENT REQUIRED TO BE FASTING? No 07/04/2024 11:41 AM CDT [facility] GFR, ESTIMATED >60 >=60 07/04/2024 11:41 AM CDT [facility] Comment: Creatinine Clearance is the preferred criteria for selecting drug dose adjustments in renally impaired patients. ??The GFR is provided as additional pertinent clinical information. GFR is reported in mL/min/1.73 sq m. Calculation based on the Chronic Kidney Disease Epidemiology Collaboration (CKD- EPI) equation refit without adjustment for race. GFR, EST. >60 >=60 024 11:41 AM CDT [facility] GFR, EST. NONAFRICAN >60 >=60 07/04/2024 11:41 AM CDT [facility] Blood Sub-Q Port Venou s Access Device (Medi-Port, Implanted Port) / Unknown 07/04/2024 10:53 AM CDT 07/04/2024 10:54 AM CDT Markus Luana Finley MD CHEMISTRY ORDERABLES Fin al Result [facility] [address] [place] [address] documented in this encounter Visit Diagnoses Diagnosis [...] mEq documented in this encounter Care Teams Patient Registration Supervisor Relationship Specialty Start Date End Date Pritesh Chu MD [address] [place] [address] PCP - General Family Medicine 04/18/24 Markus Finley MD [address] [place] [address] Consulting Physician Medical Oncology 04/18/24 documented as of this encounter
--- OUTSIDE RECORDS SUMMARY | 2024-10-27 03:41 | XMS_ITS | Encounter Summary ---
Author Organization [facility] Address [address] [place] [address] Phone Care Team Providers Care Hand Alterations Seamstress Name Role Phone Pritesh Chu MD Primary Care Provider [phone] Markus Finley MD Unavailable [phone] Reason for Visit * Reason Comments Follow-up Encounter Details Date Type Department Care Team (Late st Contact Info) Description 06/12/2024 2:45 PM CDT [facility] [address] [place] [address] Markus Finley MD [address] [place] [address] Jenn Medellin [place], PAC [address] [place] [address] Metastatic melanoma (HCC) (Primary Dx); Abnormal TSH [...] labs for CMP, TSH, T3, T4. Contact swimming pool service technician for excision of lesions to dorsal aspect [...] labs for CMP, TSH, T3, T4. Contact swimming pool service technician for excision of lesions to dorsal aspect [...] labs for CMP, TSH, T3, T4. Contact swimming pool service technician for excision of lesions to dorsal aspect [...] st Contact Info) Description 11/15/2024 1:00 PM BIG DATA ADMIN Lab [facility] Laboratory Services [address] [place] [address] Markus Finley MD [address] [place] [address] 11/15/2024 2:00 PM BIG DATA ADMIN Appointment [facility] MRI [address] [place] [address] [place] [address] [place] [address] Discharge Disposition: Discharged to home or Selfcare documented as of this encounter Results * TRIIODOTHYRININE (T3) TOTAL (06/12/2024 2:14 PM CDT) T3 107 40 - 193 ng/dL 06/12/2024 9:46 PM CDT [facility] Blood Sub-Q Port Venou s Access Device (Medi-Port, Implanted Port) / Unknown 06/12/2024 2:14 PM CDT 06/12/2024 2:14 PM CDT [facility] PAC CHEMISTRY ORDERABLES Susan l Result [facility] [address] [place] [address], [place] * THYROXINE (T4) FREE (06/12/2024 2:14 PM CDT) T4 FREE 0.8 0.7 - 1.9 ng/dL 06/12/2024 4:25 PM CDT [facility] Blood Sub-Q Port Venou s Access Device (Medi-Port, Implanted Port) / Unknown 06/12/2024 2:14 PM CDT 06/12/2024 2:14 PM CDT [facility] PAC CHEMISTRY ORDERABLES Susan l Result [facility] [address] [place] [address] documented in this encounter Visit Diagnoses Diagnosis Metastatic melanoma (HCC)- Primary Melanoma of skin, site unspecified Abnormal TSH Other abnormal clinical finding documented in this encounter Care Teams Hand Alterations Seamstress Relationship Specialty Start Date End Date Pritesh Chu MD [address] [address] PCP - General Family Medicine 04/18/24 Markus Finley MD [address] [place] [address] Consulting Physician Medical Oncology 04/18/24 documented as of this encounter
--- OUTSIDE RECORDS SUMMARY | 2024-10-27 03:41 | XMS_ITS | Encounter Summary ---
Author Organization [facility] Address [address] [place] [address] Phone Care Team Providers Care Varnishing Unit Tool Setter Name Role Phone Pritesh Chu MD Primary Care Provider Markus Finley MD Unavailable [phone] Encounter Details Date Type Department Care Team (Late st Contact Info) Description 05/24/2024 Telephone [facility] Oncology Services [address] [place] [address] Markus Finley MD [address] [place] [address] Social History Tobacco Use Types Packs/Day Years [...] st Contact Info) Description 11/15/2024 1:00 PM TRIMMER OPERATOR THREE KNIFE [facility] [address] [place] [address] Markus Finley MD [address] [place] [address] 11/15/2024 2:00 PM TRIMMER OPERATOR THREE KNIFE [facility]ment [facility] [address] [place] [address] Markus Finley MD [address] [place] [address] Discharge Disposition: Discharged to home or Selfcare documented as of this encounter Visit Diagnoses Not on filedocumented in this encounter Care Teams Varnishing Unit Tool Setter Relationship Specialty Start Date End Date Pritesh Chu MD [address] [place] [address] PCP - General Family Medicine 04/18/24 Markus Finley MD [address] [place] [address] Consulting Physician Medical Oncology 04/18/24 documented as of this encounter
--- OUTSIDE RECORDS SUMMARY | 2024-10-27 03:41 | XMS_ITS | Encounter Summary ---
Author Organization [facility] Address [address] 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 Genetics Risk Assessment Discussed/N/A Allergies as of [...] Contact Info) Description 11/15/2024 1:00 PM CORE BLOWER [facility] [address] [place] [address] Markus Finley MD [address] [place] [address] 11/15/2024 2:00 PM CORE BLOWER [facility]ment [facility] [address] [place] [address] Markus Finley MD [address] [place] [address] Discharge Disposition: Discharged to home or Selfcare documented as of this encounter Visit Diagnoses Diagnosis Metastatic melanoma (HCC)- Primary Melanoma of skin, site unspecified documented in this encounter Care Teams Signal Maintainer Helper Relationship Specialty Start Date End Date Pritesh Chu MD [address] [place] [address] PCP - General Family Medicine 04/18/24 Markus Finley MD [address] [place] [address] Consulting Physician Medical Oncology 04/18/24 documented as of this encounter"
--- OUTSIDE RECORDS SUMMARY | 2024-10-27 03:41 | XMS_ITS | Encounter Summary ---
Author Organization [facility] Care Team Providers Care Metal Refiner Name Role Phone Pritesh Chu MD Primary Care Provider [phone] Markus Finley MD Unavailable [phone] Encounter Details Date Type Department Care Team [...] st Contact Info) Description 11/15/2024 1:00 PM KIDS CLUB ATTENDANT Lab [facility] Laboratory Services [address] [place] [address] Markus Finley MD [address] [place] [address] 11/15/2024 2:00 PM KIDS CLUB ATTENDANT Appointment [facility] MRI [address] [place] [address] Markus Finley MD [address] [place] [address] Discharge Disposition: Discharged to home or Selfcare documented as of this encounter Visit Diagnoses Not on filedocumented in this encounter Care Teams Metal Refiner Relationship Specialty Start Date End Date Pritesh Chu MD [address] [place] [address] PCP - General Family Medicine 04/18/24 Markus Finley MD [address] [place] [address] Consulting Physician Medical Oncology 04/18/24 documented as of this encounter
--- OUTSIDE RECORDS SUMMARY | 2024-10-27 03:41 | XMS_ITS | Encounter Summary ---
Author Organization [facility] Address [address] [place] [address] Phone Care Team Providers Care Automation Controls Engineer Name Role Phone Pritesh Chu MD Primary Care Provider Markus Finley MD Unavailable [phone] Encounter Details Date Type Department Care Team (Late st Contact Info) Description 06/25/2024 Refill [facility] Oncology Services [address] [place] [address] Markus Finley MD [address] [place] [address] Social History Tobacco Use Types Packs/Day Years [...] and heating? Not hard at all 06/27/2024 [facility] - Occupational Stress [...] st Contact Info) Description 11/15/2024 1:00 PM PUTTY AND CAULKING SUPERVISOR Lab [facility] Laboratory Services 1 [facility] [place] [address] Markus Finley MD [address] [place] [address] 11/15/2024 2:00 PM PUTTY AND CAULKING SUPERVISOR Appointment [facility] MRI 1 [facility] [place] [address] Markus Finley MD [address] [place] [address] Discharge Disposition: Discharged to home or Selfcare documented as of this encounter Visit Diagnoses Diagnosis Diarrhea due to drug- Primary Diarrhea documented in this encounter Care Teams Automation Controls Engineer Relationship Specialty Start Date End Date Pritesh Chu MD [address] [place] [address] PCP - General Family Medicine 04/18/24 Markus Finley MD [address] [place] [address] Consulting Physician Medical Oncology 04/18/24 documented as of this encounter
--- OUTSIDE RECORDS SUMMARY | 2024-10-27 03:41 | XMS_ITS | Encounter Summary ---
Author Organization [facility] Care Team Providers Care Loading Shovel Oiler Name Role Phone Pritesh Chu MD Primary Care Provider [phone] Markus Finley MD Unavailable [phone] Encounter Details Date Type Department Care Team [...] st Contact Info) Description 11/15/2024 1:00 PM TOLL TRANSMISSION WORKER Lab [facility] Laboratory Services [address] [place] [address] Markus Finley MD [address] [place] [address] 11/15/2024 2:00 PM TOLL TRANSMISSION WORKER Appointment [facility] MRI [address] [place] [address] Markus Finley MD [address] [place] [address] Discharge Disposition: Discharged to home or Selfcare documented as of this encounter Visit Diagnoses Not on filedocumented in this encounter Care Teams Loading Shovel Oiler Relationship Specialty Start Date End Date Pritesh Chu MD [address] [place] [address] PCP - General Family Medicine 04/18/24 Markus Finley MD [address] [place] [address] Consulting Physician Medical Oncology 04/18/24 documented as of this encounter
--- OUTSIDE RECORDS SUMMARY | 2024-10-27 03:41 | XMS_ITS | Encounter Summary ---
Author Organization [facility] Care Team Providers Care Piston Maker Name Role Phone Pritesh Chu MD Primary Care Provider [phone] Markus Finley MD Unavailable [phone] Encounter Details Date Type Department Care Team [...] st Contact Info) Description 11/15/2024 1:00 PM CIVIL ENGINEER HELPER Lab [facility] Laboratory Services [address] [place] [address] Markus Finley MD [address] [place] [address] 11/15/2024 2:00 PM CIVIL ENGINEER HELPER Appointment [facility] MRI [address] [place] [address] Markus Finley MD [address] [place] [address] Discharge Disposition: Discharged to home or Selfcare documented as of this encounter Visit Diagnoses Not on filedocumented in this encounter Care Teams Piston Maker Relationship Specialty Start Date End Date Pritesh Chu MD [address] [address] PCP - General Family Medicine 04/18/24 Markus Finley MD [address] [place] [address] Consulting Physician Medical Oncology 04/18/24 documented as of this encounter
--- OUTSIDE RECORDS SUMMARY | 2024-10-27 03:41 | XMS_ITS | Encounter Summary ---
Author Organization [email or web address] Care Team Providers Care Claims Service Representative Name Role Phone Pritesh Chu MD Primary Care Provider [phone] Markus Finley MD Unavailable [phone] Encounter Details Date Type Department Care Team (Latest Contact Info) Description 07/06/2024 Travel Social History Tobacco Use Types Packs/Day Years Used Date Smoking Tobacco: Former Cigarettes 0.5 8.5 S tarted: 04/18/2016 Smokeless Tobacco: Never Alcohol Use Standard Drinks/Week Comments Yes 0 (1 standard drink = 0.6 oz pur e alcohol) [facility] Utilities Answer Date Recorded In the past 12 months has [employer], gas, oil, or water [employer] threatened to shut off services in your [...] often do you attend chur ch or buddhist services? Never 06/27/2024 Do you belong to [...] and heating? Not hard at all 06/27/2024 [facility] - Occupational Stress [...] st Contact Info) Description 11/15/2024 1:00 PM LIGHTNING ROD ERECTOR [facility] [address] [place] [address] Markus Finley MD [address] [place] [address] 11/15/2024 2:00 PM LIGHTNING ROD ERECTOR [facility]ment [facility] [address] [place] [address] Markus Finley MD [address] [place] [address] Discharge Disposition: Discharged to home or Selfcare documented as of this encounter Visit Diagnoses Not on filedocumented in this encounter Care Teams Claims Service Representative Relationship Specialty Start Date End Date Pritesh Chu MD [address] [place] [address] PCP - General Family Medicine 04/18/24 Markus Finley MD [address] [place] [address] Consulting Physician Medical Oncology 04/18/24 documented as of this encounter
--- OUTSIDE RECORDS SUMMARY | 2024-10-27 03:41 | XMS_ITS | Encounter Summary ---
Author Organization [employer] Care Team Providers Care Websphere Administrator Name Role Phone Pritesh Chu MD Primary Care Provider Markus Finley MD Unavailable [phone] Encounter Details Date Type Department Care Team (Latest Contact Info) Description 07/10/2024 Travel Social History Tobacco Use Types Packs/Day Years Used Date Smoking Tobacco: Former Cigarettes 0.5 8.5 S tarted: 04/18/2016 Smokeless Tobacco: Never Alcohol Use Standard Drinks/Week Comments Yes 0 (1 standard drink = 0.6 oz pur e alcohol) [facility] Utilities Answer Date Recorded In the past 12 months has [employer], gas, oil, or water [email or web address] threatened to shut off services in your [...] attend chur ch or congregation services? Never 06/27/2024 Do you belong to [...] and heating? Not hard at all 06/27/2024 [facility] Occupat ional Health - Occupational Stress [...] st Contact Info) Description 11/15/2024 1:00 PM RESIDENTIAL CONCIERGE [facility] [address] [place] [address] Markus Finley MD [address] [place] [address] 11/15/2024 2:00 PM RESIDENTIAL CONCIERGE [facility]ointment [facility] [address] [place] [address] Markus Finley MD [address] [place] [address] Discharge Disposition: Discharged to home or Selfcare documented as of this encounter Visit Diagnoses Not on filedocumented in this encounter Care Teams Websphere Administrator Relationship Specialty Start Date End Date Pritesh Chu MD [address] [place] [address] PCP - General Family Medicine 04/18/24 Markus Finley MD [address] [place] [address] Consulting Physician Medical Oncology 04/18/24 documented as of this encounter
--- OUTSIDE RECORDS SUMMARY | 2024-10-27 03:41 | XMS_ITS | Encounter Summary ---
Author Organization [facility] Address [address] [facility] [place] [address] Phone Care Team Providers Care Master Chef Name Role Phone Pritesh Chu MD Primary Care Provider [phone] Markus Finley MD Unavailable [phone] Encounter Details Date Type Department Care Team (Late st Contact Info) Description 06/20/2024 Telephone [facility] Oncology Services [address] [place] [address] Jennifer Bellamy, SENIOR INFORMATION SECURITY ARCHITECT [place] Social History Tobacco Use Types Packs/Day Years [...] st Contact Info) Description 11/15/2024 1:00 PM BARREL CHARRER HELPER [facility] [address] [place] [address] Markus Finley MD [address] [place] [address] 11/15/2024 2:00 PM BARREL CHARRER HELPER [facility] [address] [place] [address] Markus Finley MD [address] [place] [address] Discharge Disposition: Discharged to home or Selfcare documented as of this encounter Visit Diagnoses Not on filedocumented in this encounter Care Teams Master Chef Relationship Specialty Start Date End Date Pritesh Chu MD [address] [place] [address] PCP - General Family Medicine 04/18/24 Markus Finley MD [address] [place] [address] Consulting Physician Medical Oncology 04/18/24 documented as of this encounter
--- OUTSIDE RECORDS SUMMARY | 2024-10-27 03:41 | XMS_ITS | Encounter Summary ---
Author Organization [facility] Address [address] [facility] [place] [address] Phone Care Team Providers Care Meat Apprentice Name Role Phone Pritesh Chu MD Primary Care Provider [phone] Markus Finley MD Unavailable [phone] Encounter Details Date Type Department Care Team (Late st Contact Info) Description 06/25/2024 Telephone [facility] Oncology Services [address] [place] [address] Jennifer Bellamy, CONSULTING PSYCHIATRIST [place] Social History Tobacco Use Types Packs/Day Years [...] st Contact Info) Description 11/15/2024 1:00 PM OFFICE ENGINEER Lab [facility] [address] [place] [address] Markus Finley MD [address] [place] [address] 11/15/2024 2:00 PM OFFICE ENGINEER [facility]oint[facility] MRI [address] [place] [address] Markus Finley MD [address] [place] [address] Discharge Disposition: Discharged to home or Selfcare documented as of this encounter Visit Diagnoses Not on filedocumented in this encounter Care Teams Meat Apprentice Relationship Specialty Start Date End Date Pritesh Chu MD [address] [place] [place] [address] PCP - General Family Medicine 04/18/24 Markus Finley MD [address] [place] [address] Consulting Physician Medical Oncology 04/18/24 documented as of this encounter
--- OUTSIDE RECORDS SUMMARY | 2024-10-27 03:41 | XMS_ITS | Encounter Summary ---
Author Organization [facility] Address [address] [place] [address] Phone Care Team Providers Care Supervisor Dairy Sanitation Name Role Phone Pritesh Chu MD Primary Care Provider [phone] Markus Finley MD Unavailable [phone] Reason for Visit * Episode Based Medications (Routine) - Closed Specialty Diagnoses / Procedures Referred By Contross t Referred To Contact Diagnoses Metastatic melanoma (HCC) Markus Finley MD [address] [place] [address] Phone: tel: fax: [facility] Oncology Services [address] [place] [address] Phone: tel: fax: Referral ID Status Reason Start Date Expiration Date Visits Re quested Visits Authorized [id number] Closed 04/19/2024 1 30 Encounter Details Date Type Department Care Team (Late st Contact Info) Description 06/12/2024 1:00 PM CDT Clinical Support [facility] Oncology Services [address] [place] [address] Markus Finley MD [address] [place] [address] Metastatic melanoma (HCC) (Primary Dx); Abnormal TSH [...] Pt awaiting treatment and provider follow-up in [facility]. * Interdisciplinary - Liliana Finney RN - 06/12/2024 1:00 PM CDT Medication given per MD order and pt tolerated well. Pt recites she will call derm office at [place] for follow-up regarding possible new lesions and [...] st Contact Info) Description 11/15/2024 1:00 PM GIS ENGINEER [facility] [address] [place] [address] Markus Finley MD [address] [place] [address] 11/15/2024 2:00 PM GIS ENGINEER [facility]ment [facility] 1 [place] [address] Markus Finley MD [address] [place] [address] Discharge Disposition: Discharged to home or Selfcare [...] - 1.9 ng/dL 06/12/2024 4:54 PM CDT [facility] Blood Sub-Q Port Venou s Access Device (Medi-Port, Implanted Port) / Unknown 06/12/2024 2:14 PM CDT 06/12/2024 2:14 PM CDT [facility] PAC CHEMISTRY ORDERABLES Susan l Result [facility] [address] [place] [address] * (ABNORMAL) THYROID SCREEN WITH REFLEX (06/12/2024 2:14 PM CDT) TSH 0.100(L) 0.300 - 5.000 mIU/L 06/12/2024 4:23 PM CDT [facility] Blood Sub-Q Port Venou s Access Device (Medi-Port, Implanted Port) / Unknown 06/12/2024 2:14 PM CDT 06/12/2024 2:14 PM CDT [facility] PAC CHEMISTRY ORDERABLES Susan l Result [facility] [address] [place] [address] * TRIIODOTHYRININE (T3) TOTAL (06/12/2024 2:14 PM CDT) Pathologist [facility] T3 107 40 - 193 ng/dL 06/12/2024 9:46 PM CDT [facility] Blood Sub-Q Port Venou s Access Device (Medi-Port, Implanted Port) / Unknown 06/12/2024 2:14 PM CDT 06/12/2024 2:14 PM CDT [facility] PAC CHEMISTRY ORDERABLES Susan l Result [facility] [address] [place] [address], * THYROXINE (T4) FREE (06/12/2024 2:14 PM CDT) Pathologist [facility] T4 FREE 0.8 0.7 - 1.9 ng/dL 06/12/2024 4:25 PM CDT [facility] Blood Sub-Q Port Venou s Access Device (Medi-Port, Implanted Port) / Unknown 06/12/2024 2:14 PM CDT 06/12/2024 2:14 PM CDT [facility] PAC CHEMISTRY ORDERABLES Susan l Result [facility] [address] [place] [address] * (ABNORMAL) CMP (COMPREHENSIVE METABOLIC PANEL) (06/12/2024 2:14 PM CDT) Pathologist [facility] SODIUM 140 136 - 145 mmol/L 06/12/2024 4:04 PM CDT [facility] POTASSIUM 3.5 3.5 - 5.1 mmol/L 06/12/2024 4:04 PM CDT [facility] CHLORIDE 109(H) 98 - 107 mmol/L 06/12/2024 4:04 PM CDT [facility] CO2, VENOUS 23 22 - 30 mmol/L 06/12/2024 4:04 PM CDT [facility] ANION GAP 11.5 <18.0 mmol/L 06/12/2024 4:04 PM T [facility] GLUCOSE 136(H) 70 - 99 mg/dL 06/12/2024 4:04 PM CDT [facility] BUN 12 5 - 18 mg/dL 06/12/2024 4:04 PM T [facility] CREATININE, BLOOD 0.73 0.60 - 1.00 mg/dL 06/12/2024 4:04 PM T [facility] BUN/CREATININE RATIO 16 12 - 20 ratio 06/12/2024 4:04 PM T [facility] TOTAL PROTEIN 6.4 6.3 - 8.2 g/dL 06/12/2024 4:04 PM T [facility] ALBUMIN 3.6 3.5 - 5.0 g/dL 06/12/2024 4:04 PM T [facility] A/G RATIO 1.3 1.0 - 2.2 06/12/2024 4:04 PM T [facility] CALCIUM 9.1 8.7 - 10.5 mg/dL 06/12/2024 4:04 PM T [facility] T BILI 0.2 0.2 - 1.2 mg/dL 06/12/2024 4:04 PM CDT [facility] SGOT (AST) 20 5 - 34 U/L 06/12/2024 4:04 PM T [facility] SGPT (ALT) 37 0 - 55 U/L 06/12/2024 4:04 PM T [facility] ALKALINE PHOSPHATASE 59 40 - 150 U/L 06/12/2024 4:04 PM T [facility] IS THE PATIENT REQUIRED TO BE FASTING? No 06/12/2024 4:04 PM T [facility] GFR, ESTIMATED >60 >=60 06/12/2024 4:04 PM CDT [facility] Comment: Creatinine Clearance is the preferred criteria for selecting drug dose adjustments in renally impaired patients. ??The GFR is provided as additional pertinent clinical information. GFR is reported in mL/min/1.73 sq m. Calculation based on the Chronic Kidney Disease Epidemiology Collaboration (CKD- EPI) equation refit without adjustment for race. GFR, EST. >60 >=60 024 4:04 PM CDT [facility] GFR, EST. NONAFRICAN >60 >=60 06/12/2024 4:04 PM CDT [facility] Blood Sub-Q Port Venou s Access Device (Medi-Port, Implanted Port) / Unknown 06/12/2024 2:14 PM CDT 06/12/2024 2:14 PM CDT Markus Finley MD CHEMISTRY ORDERABLES Fin al Result [facility] [address] [place] [address] documented in this encounter Visit Diagnoses Diagnosis [...] documented in this encounter Care Teams Supervisor Dairy Sanitation Relationship Specialty Start Date End Date Pritesh Chu MD [address] [place] [address] PCP - General Family Medicine 04/18/24 Markus Finley MD [address] [place] [address] Consulting Physician Medical Oncology 04/18/24 documented as of this encounter
--- OUTSIDE RECORDS SUMMARY | 2024-10-27 03:41 | XMS_ITS | Encounter Summary ---
Author Organization [facility] Address [address] [facility] [place] [address] Phone Care Team Providers Care Pharmacy Intake Coordinator Name Role Phone Pritesh Chu MD Primary Care Provider [phone] Markus Finley MD Unavailable Reason for Visit * Reason Comments Follow-up Encounter Details Date Type Department Care Team (Late st Contact Info) Description 05/08/2024 2:15 PM CDT [facility] [address] [place] [phone] Jenn Medellin Edelmira, PAC [address] [place] [address] Metastatic melanoma (HCC) (Primary Dx); Ringworm Discharge [...] - 05/08/2024 2:15 PM CDT May use mtcg-tmt-yckllud antifungal cream to affected area 2-3 times [...] Reviewed and discussed above results. May use hhjl-ozv-otqibzi antifungal cream to affected area 2-3 times [...] as outlined above. Patient Instructions May use fbff-nwf-udwmmko antifungal cream to affected area 2-3 times [...] Contact Info) Description 11/15/2024 1:00 PM FIELD ARTILLERY TARGETING TECHNICIAN Lab [facility] Services [address] [place] [address] Markus Finley MD [address] [place] [address] 11/15/2024 2:00 PM FIELD ARTILLERY TARGETING TECHNICIAN Appointment [facility] [address] [place] [address] Markus Finley MD [address] [place] [address] Discharge Disposition: Discharged to home or Selfcare documented as of this encounter Visit Diagnoses Diagnosis Metastatic melanoma (HCC)- Primary Melanoma of skin, site unspecified Ringworm Dermatophytosis of unspecified site documented in this encounter Care Teams Pharmacy Intake Coordinator Relationship Specialty Start Date End Date Pritesh Chu MD [address] [place] [address] PCP - General Family Medicine 04/18/24 Markus Finley MD [address] [place] [address] Consulting Physician Medical Oncology 04/18/24 documented as of this encounter
--- OUTSIDE RECORDS SUMMARY | 2024-10-27 03:41 | XMS_ITS | Encounter Summary ---
Author Organization [facility] Address [address] [place] [address] Phone Care Team Providers Care Manager International Name Role Phone Pritesh Chu MD Primary Care Provider [phone] Markus Finley MD Unavailable [phone] Reason for Visit * Reason Onset Date Comments Follow-up 07/02/2024 Encounter Details Date Type Department Care Team (Late st Contact Info) Description 07/02/2024 Post Discharge Follow[facility]up [facility] Services [address] [place] [address] Arline Rojo, RN [place] Social History Tobacco Use Types Packs/Day Years Used Date Smoking Tobacco: Former Cigarettes 0.5 8.5 S tarted: 04/18/2016 Smokeless Tobacco: Never Alcohol Use Standard Drinks/Week Comments Yes 0 (1 standard drink = 0.6 oz pur e alcohol) [facility] Utilities Answer Date Recorded In the [...] often do you attend chur ch or hinduism services? Never 06/27/2024 Do you belong to [...] and heating? Not hard at all 06/27/2024 [facility] [...] to follow up after recent discharge from [facility] Med-Surg Unit. How are you feeling? [...] st Contact Info) Description 11/15/2024 1:00 PM MACHINE I CUTTER Lab [facility] Laboratory Services [address] [place] [address] Markus Finley MD [address] [place] [address] 11/15/2024 2:00 PM MACHINE I CUTTER Appointment [facility] MRI [address] [place] [address] Markus Finley MD [address] [place] [address] Discharge Disposition: Discharged to home or Selfcare documented as of this encounter Visit Diagnoses Not on filedocumented in this encounter Care Teams Manager International Relationship Specialty Start Date End Date Pritesh Chu MD [address] [place] [address] PCP - General Family Medicine 04/18/24 Markus Finley MD [address] [place] [address] Consulting Physician Medical Oncology 04/18/24 documented as of this encounter
--- OUTSIDE RECORDS SUMMARY | 2024-10-27 03:41 | XMS_ITS | Encounter Summary ---
Author Organization [facility] Address [address] [place] [address] Phone Care Team Providers Care Diesel Power Mechanic Name Role Phone Pritesh Chu MD Primary Care Provider [phone] Markus Finley MD Unavailable [phone] Reason for Visit * Reason Comments Follow-up Encounter Details Date Type Department Care Team (Late st Contact Info) Description 07/03/2024 9:00 AM CDT Office [facility] [address] [place] [address] Markus Finley MD [address] [place] [address] Metastatic melanoma (HCC) (Primary Dx); Functional diarrhea; [...] and heating? Not hard at all 06/27/2024 [facility] [...] on 05/01/24. She was recently admitted to [facility] for fever with associated nausea with [...] 1. Multiple subcutaneous masses in the left branhma and anteromedial left thigh with increased activity, [...] on 05/01/24. She was recently admitted to [facility] for fever with associated nausea with [...] IMAGING STUDIES: CT abdomen pelvis done at [facility] on 06/27/2024 No evidence of appendicitis. No [...] go to exchange after hours. 9. Check [id number] in the blood today. Tempus XT on [...] st Contact Info) Description 11/15/2024 1:00 PM PROCESS DESIGNER Lab [facility] [address] [place] [address] Markus Finley MD [address] [place] [address] 11/15/2024 2:00 PM PROCESS DESIGNER Appointment [facility] MRI 1 [facility] [address] Markus Finley MD [address] [place] [address] Discharge Disposition: Discharged to home or Selfcare [...] Fin al Result Performing Organization Address City/State/[facility] Co de Phone Number SCAN * CMP (COMPREHENSIVE METABOLIC PANEL) (07/16/2024 12:00 AM CDT) Markus Finley MD CHEMISTRY ORDERABLES Fin al Result SCAN * THYROID STIMULATING HORMONE (TSH) (07/16/2024 12:00 AM CDT) Markus Finley MD CHEMISTRY ORDERABLES Fin al Result Performing Organization Address City/State/[facility] Co de Phone Number SCAN * CMP (COMPREHENSIVE METABOLIC PANEL) (07/16/2024 12:00 AM CDT) Markus Finley MD CHEMISTRY ORDERABLES Fin al Result Performing Organization Address City/State/[facility] Co de Phone Number SCAN * COMPLETE BLOOD COUNT (CBC) WITH DIFF (07/16/2024 12:00 AM CDT) Markus Finley MD HEMATOLOGY ORDERABLES Fi nal Result Performing Organization Address City/[facility] Co de Phone Number SCAN * ADRENOCORTICOTROPIC HORMONE, P, MILLER ACTH (07/03/2024 10:29 AM CDT) ADRENOCORTICOTROPIC HORMONE (ACTH) 8.7 pg/mL 07/04/2024 12:18 PM CDT [facility] [employer] Comment: REFERENCE VALUE 7.2-63 (a.m. collection) Test Performed by: [facility] [address] [place] [address] Interactive Media Marketing Specialist: Ernie Page Ph.D.; CLIA# [id number] Blood Sub-Q Port Venou s Access Device (Medi-Port, Implanted Port) / Unknown 07/03/2024 10:29 AM CDT 07/03/2024 10:29 AM CDT Markus Finley MD LAB SEND OUTS Final Re sult Performing Organization Address City/[facility]/ZIP Co de Phone Number [facility] * (ABNORMAL) THYROXINE (T4) FREE (07/03/2024 10:29 AM CDT) T4 FREE <0.4(L) 0.7 - 1.9 ng/dL 07/03/2024 11:55 AM CDT [facility] Blood Sub-Q Port Venou s Access Device (Medi-Port, Implanted Port) / Unknown 07/03/2024 10:29 AM CDT 07/03/2024 10:29 AM CDT Result [facility] Markus Finley MD CHEMISTRY ORDERABLES Fin al Result Performing Organization Address [facility] Co de Phone Number [facility] [address] [place] [address] * CORTISOL (07/03/2024 10:29 AM CDT) CORTISOL 18.9 mcg/dL 07/03/2024 11:32 AM CDT [facility] Blood Sub-Q Port Venou s Access Device (Medi-Port, Implanted Port) / Unknown 07/03/2024 10:29 AM CDT 07/03/2024 10:29 AM CDT Narrative [facility] - 07/03/2024 11:32 AM CDT AM: ??4 TO 19 mcg/dL PM: ??Approx. Half of AM Value ?? Markus Finley MD CHEMISTRY ORDERABLES Fin al Result Performing Organization Address City/[facility]/ZIP Co de Phone Number [facility] [address] [place] [address] * (ABNORMAL) TRIIODOTHYRININE (T3) FREE (07/03/2024 10:29 AM CDT) FREE T3 <1.5(L) 1.6 - 3.9 pg/mL 07/03/2024 4:27 PM CDT [facility] Blood Sub-Q Port Venou s Access Device (Medi-Port, Implanted Port) / Unknown 07/03/2024 10:29 AM CDT 07/03/2024 10:29 AM CDT Markus Finley MD CHEMISTRY ORDERABLES Fin al Result Performing Organization Address [facility] Co de Phone Number [facility] [address] [place] [address], * (ABNORMAL) THYROID STIMULATING HORMONE (TSH) (07/03/2024 10:29 AM CDT) TSH 42.415(H) 0.300 - 5.000 mIU/L 07/03/2024 11:32 AM CDT [facility] Blood Sub-Q Port Venou s Access Device (Medi-Port, Implanted Port) / Unknown 07/03/2024 10:29 AM CDT 07/03/2024 10:29 AM CDT Markus Finley MD CHEMISTRY ORDERABLES Fin al Result Performing Organization Address City/[facility] Co de Phone Number [facility] [address] [place] [address] * (ABNORMAL) CMP (COMPREHENSIVE METABOLIC PANEL) (07/03/2024 10:29 AM CDT) SODIUM 125(L) 136 - 145 mmol/L 07/03/2024 11:17 AM CDT [facility] POTASSIUM 3.0(L) 3.5 - 5.1 mmol/L 07/03/2024 11:17 AM T [facility] CHLORIDE 99 98 - 107 mmol/L 07/03/2024 11:17 AM T [facility] CO2, VENOUS 12(L) 22 - 30 mmol/L 07/03/2024 11:17 AM CDT [facility] ANION GAP 17.0 <18.0 mmol/L 07/03/2024 11:17 AM CDT [facility] GLUCOSE 150(H) 70 - 99 mg/dL 07/03/2024 11:17 AM T [facility] BUN 23(H) 5 - 18 mg/dL 07/03/2024 11:17 AM [facility] CREATININE, BLOOD 1.55(H) 0.60 - 1.00 mg/dL 07/03/2024 11:17 AM T [facility] BUN/CREATININE RATIO 15 12 - 20 ratio 07/03/2024 11:17 AM [facility] TOTAL PROTEIN 7.7 6.3 - 8.2 g/dL 07/03/2024 11:17 AM T [facility] ALBUMIN 4.2 3.5 - 5.0 g/dL 07/03/2024 11:17 AM [facility] A/G RATIO 1.2 1.0 - 2.2 07/03/2024 11:17 AM CDT [facility] CALCIUM 9.4 8.7 - 10.5 mg/dL 07/03/2024 11:17 AM T [facility] T BILI 0.9 0.2 - 1.2 mg/dL 07/03/2024 11:17 AM CDT [facility] SGOT (AST) 28 5 - 34 U/L 07/03/2024 11:17 AM CDT [facility] SGPT (ALT) 64(H) 0 - 55 U/L 07/03/2024 11:17 AM CDT [facility] ALKALINE PHOSPHATASE 79 40 - 150 U/L 07/03/2024 11:17 AM CDT [facility] IS THE PATIENT REQUIRED TO BE FASTING? No 07/03/2024 11:17 AM CDT [facility] GFR, ESTIMATED 48(L) >=60 07/03/2024 11:17 AM CDT [facility] Comment: Creatinine Clearance is the preferred criteria for selecting drug dose adjustments in renally impaired patients. ??The GFR is provided as additional pertinent clinical information. GFR is reported in mL/min/1.73 sq m. Calculation based on the Chronic Kidney Disease Epidemiology Collaboration (CKD- EPI) equation refit without adjustment for race. GFR, EST. 50(L) >=60 024 11:17 AM CDT [facility] GFR, EST. NONAFRICAN 41(L) >=60 07/03/2024 11:17 AM CDT [facility] Blood Sub-Q Port Venou s Access Device (Medi-Port, Implanted Port) / Unknown 07/03/2024 10:29 AM CDT 07/03/2024 10:29 AM CDT us Markus Finley MD CHEMISTRY ORDERABLES Fin al Result [facility] [address] [place] [address] documented in this encounter Visit Diagnoses Diagnosis Metastatic melanoma (HCC)- Primary Melanoma of skin, site unspecified Functional diarrhea Hypotension due to drugs Other iatrogenic hypotension Diarrhea due to drug Diarrhea Immunotherapy Reserved for inherently not codable concepts WITHOUT codable children Dizziness Dizziness and giddiness documented in this encounter Care Teams Diesel Power Mechanic Relationship Specialty Start Date End Date Pritesh Chu MD [address] [address] PCP - General Family Medicine 04/18/24 Markus Finley MD [address] [place] [address] Consulting Physician Medical Oncology 04/18/24 documented as of this encounter
--- OUTSIDE RECORDS SUMMARY | 2024-10-27 03:41 | XMS_ITS | Encounter Summary ---
Author Organization [facility] Care Team Providers Care Professional Tutor Name Role Phone Pritesh Chu MD Primary Care Provider [phone] Markus Finley MD Unavailable [phone] Encounter Details Date Type Department Care Team [...] Contact Info) Description 11/15/2024 1:00 PM MARKETING SYSTEMS ANALYST Lab [facility] Laboratory Services [address] [place] [phone] Markus Finley MD [address] [place] [address] 11/15/2024 2:00 PM MARKETING SYSTEMS ANALYST Appointment [facility] MRI [address] [place] [address] Markus Finley MD [address] [place] [address] Discharge Disposition: Discharged to home or Selfcare documented as of this encounter Visit Diagnoses Not on filedocumented in this encounter Care Teams Professional Tutor Relationship Specialty Start Date End Date Pritesh Chu MD [address] [place] [address] PCP - General Family Medicine 04/18/24 Markus Finley MD [address] [place] [address] Consulting Physician Medical Oncology 04/18/24 documented as of this encounter
--- OUTSIDE RECORDS SUMMARY | 2024-10-27 03:41 | XMS_ITS | Encounter Summary ---
Author Organization [facility] Address [address] [facility] [place] [address] Phone Care Team Providers Care New Account Interviewer Name Role Phone Pritesh Chu MD Primary Care Provider Markus Finley MD Unavailable [phone] Reason for Visit * Episode Based Medications (Routine) - Closed Specialty Diagnoses / Procedures Referred By Contross t Referred To Contact Diagnoses Metastatic melanoma (HCC) Markus Finley MD [address] [place] [address] Phone: tel: fax: [facility] Oncology Services [address] [place] [address] Phone: tel: fax: Referral ID Status Reason Start Date Expiration Date Visits Re quested Visits Authorized [id number] Closed 04/19/2024 1 30 Encounter Details Date Type Department Care Team (Late st Contact Info) Description 05/22/2024 10:00 AM CDT Clinical Support [facility] Oncology Services [address] [place] [address] Markus Finley MD [address] [place] [address] Metastatic melanoma (HCC) (Primary Dx) Discharge Disposition: [...] Contact Info) Description 11/15/2024 1:00 PM WATER TREATMENT PLANT OPERATOR [facility] [address] [place] [address] Markus Finley MD [address] [place] [address] 11/15/2024 2:00 PM WATER TREATMENT PLANT OPERATOR [facility]ment [facility] [address] [place] [address] Markus Finley MD [address] [place] [address] Discharge Disposition: Discharged to home or Selfcare [...] mg documented in this encounter Care Teams New Account Interviewer Relationship Specialty Start Date End Date Pritesh Chu MD [address] [address] PCP - General Family Medicine 04/18/24 Markus Finley MD [address] [place] [address] Consulting Physician Medical Oncology 04/18/24 documented as of this encounter
--- OUTSIDE RECORDS SUMMARY | 2024-10-27 03:41 | XMS_ITS | Encounter Summary ---
Author Organization [facility] Address [address] [facility] [place] [address] Phone Care Team Providers Care Manager Educational Name Role Phone Pritesh Chu MD Primary Care Provider Markus Finley MD Unavailable [phone] Reason for Visit * Reason Comments Medication Refill Encounter Details Date Type Department Care Team (Late st Contact Info) Description 06/25/2024 [facility]ill [facility] Oncology Services [address] [place] [phone] Markus Finley MD [address] [place] [address] Medication Refill Social History Tobacco Use Types [...] Contact Info) Description 11/15/2024 1:00 PM PROJECT ASSOCIATE [facility] 1 [place] [address] Markus Finley MD [address] [place] [address] 11/15/2024 2:00 PM PROJECT ASSOCIATE [facility]ment [facility] 1 [place] [address] Markus Finley MD [address] [place] [address] Discharge Disposition: Discharged to home or Selfcare documented as of this encounter Visit Diagnoses Not on filedocumented in this encounter Care Teams Manager Educational Relationship Specialty Start Date End Date Pritesh Chu MD [address] [address] PCP - General Family Medicine 04/18/24 Makrus Finley MD [address] [place] [address] Consulting Physician Medical Oncology 04/18/24 documented as of this encounter
--- OUTSIDE RECORDS SUMMARY | 2024-10-27 03:41 | XMS_ITS | Encounter Summary ---
Author Organization [facility] Address [address] [facility] [place] [address] Phone Care Team Providers Care Millinery Copyist Name Role Phone Pritesh Chu MD Primary Care Provider [phone] Markus Finley MD Unavailable Encounter Details Date Type Department Care Team (Latest Contact Info) Description 04/19/2024 7:03 AM CDT - 04/19/2024 7:09 AM CDT Hospital Encounter [facility] Radiology Resources 1 [place] [address] Markus Finley MD [address] [place] [address] Discharge Disposition: Discharged to home or Selfcare [...] st Contact Info) Description 11/15/2024 1:00 PM POLE INSPECTOR [facility] 1 [place] [address] Markus Finley MD [address] [place] [address] 11/15/2024 2:00 PM POLE INSPECTOR [facility]ment [facility] 1 [facility] [place] [address] Markus Finley MD [address] [place] [address] Discharge Disposition: Discharged to home or Selfcare documented as of this encounter Procedures Procedure Name Priority Date/Time Associated Diagnosis Comments PET REFERENCE IMAGES FOR IMPORT Routine 04/19/2024 7:03 AM CDT documented in this encounter Results * PET REFERENCE IMAGES FOR IMPORT (04/19/2024 7:03 AM CDT) Markus Finley MD [facility] [place] ORDERABLES Final Result documented in this encounter Visit Diagnoses Not on filedocumented in this encounter Care Teams Millinery Copyist Relationship Specialty Start Date End Date Pritesh Chu MD [address] [place] [address] PCP - General Family Medicine 04/18/24 Markus Finley MD [address] [place] [address] Consulting Physician Medical Oncology 04/18/24 documented as of this encounter
--- OUTSIDE RECORDS SUMMARY | 2024-10-27 03:41 | XMS_ITS | Encounter Summary ---
Author Organization [facility] Care Team Providers Care Firefighter Type One Name Role Phone Pritesh Chu MD Primary Care Provider [phone] Markus Finley MD Unavailable [phone] Encounter Details Date Type Department Care Team [...] st Contact Info) Description 11/15/2024 1:00 PM BOIL OFF WORKER Lab [facility] Laboratory Services 1 [place] [phone] Markus Finley MD [address] [place] [address] 11/15/2024 2:00 PM BOIL OFF WORKER Appointment [facility] MRI [address] [place] [address] Markus Finley MD [address] [place] [address] Discharge Disposition: Discharged to home or Selfcare documented as of this encounter Visit Diagnoses Not on filedocumented in this encounter Care Teams Firefighter Type One Relationship Specialty Start Date End Date Pritesh Chu MD [address] [place] [address] PCP - General Family Medicine 04/18/24 Markus Finley MD [address] [place] [address] Consulting Physician Medical Oncology 04/18/24 documented as of this encounter
--- OUTSIDE RECORDS SUMMARY | 2024-10-27 03:41 | XMS_ITS | Encounter Summary ---
Author Organization [employer] Care Team Providers Care Buffing Machine Tender Name Role Phone Pritesh Chu MD Primary Care Provider [phone] Markus Finley MD Unavailable [phone] Encounter Details Date Type Department Care Team (Latest Contact Info) Description 06/27/2024 Travel Social History Tobacco Use Types Packs/Day Years Used Date Smoking Tobacco: Former Cigarettes 0.5 8.5 S tarted: 04/18/2016 Smokeless Tobacco: Never Alcohol Use Standard Drinks/Week Comments Yes 0 (1 standard drink = 0.6 oz pur e alcohol) [facility] Utilities Answer Date Recorded In the past 12 months has [employer], gas, oil, or water [employer] threatened to shut off services in your [...] at all 06/27/2024 [facility] [place] of Occupat ional Health - Occupational Stress [...] st Contact Info) Description 11/15/2024 1:00 PM COMMODITY DIRECTOR [facility] 1 [place] [address] Markus Finley MD [address] [place] [address] 11/15/2024 2:00 PM COMMODITY DIRECTOR [facility] 1 [place] [address] Markus Finley MD [address] [place] [address] Discharge Disposition: Discharged to home or Selfcare documented as of this encounter Visit Diagnoses Not on filedocumented in this encounter Care Teams Buffing Machine Tender Relationship Specialty Start Date End Date Pritesh Chu MD [address] [address] PCP - General Family Medicine 04/18/24 Markus Finley MD [address] [place] [address] Consulting Physician Medical Oncology 04/18/24 documented as of this encounter
--- OUTSIDE RECORDS SUMMARY | 2024-10-27 03:41 | XMS_ITS | Encounter Summary ---
Author Organization [facility] Address [address] [place] [place] [address] Phone Care Team Providers Care Degreasing Solution Reclaimer Name Role Phone Pritesh Chu MD Primary Care Provider [phone] Markus Finley MD Unavailable [phone] Encounter Details Date Type Department Care Team (Late st Contact Info) Description 05/18/2024 Documentation Only [facility] Oncology Services [address] [place] [phone] Markus Finley MD [address] [place] [address] Social History Tobacco Use Types Packs/Day Years [...] st Contact Info) Description 11/15/2024 1:00 PM RECEIPT AND REPORT CLERK [facility] 1 [facility] [place] [address] Markus Finley MD [address] [place] [address] 11/15/2024 2:00 PM RECEIPT AND REPORT CLERK [facility]ment [facility] 1 [place] [address] Markus Finley MD [address] [place] [address] Discharge Disposition: Discharged to home or Selfcare documented as of this encounter Visit Diagnoses Not on filedocumented in this encounter Care Teams Degreasing Solution Reclaimer Relationship Specialty Start Date End Date Pritesh Chu MD [address] [place], [place] [address] PCP - General Family Medicine 04/18/24 Markus Finley MD [address] [place] [address] Consulting Physician Medical Oncology 04/18/24 documented as of this encounter
--- OUTSIDE RECORDS SUMMARY | 2024-10-27 03:41 | XMS_ITS | Encounter Summary ---
Author Organization [facility] Care Team Providers Care Electrical Helper Name Role Phone Pritesh Chu MD Primary Care Provider [phone] Markus Finley MD Unavailable [phone] Encounter Details Date Type Department Care Team [...] st Contact Info) Description 11/15/2024 1:00 PM SUPPORT SPECIALIST Lab [facility] Laboratory Services 1 [place] [phone] Markus Finley MD [address] [place] [address] 11/15/2024 2:00 PM SUPPORT SPECIALIST Appointment [facility] MRI [address] [place] [address] Markus Finley MD [address] [place] [address] Discharge Disposition: Discharged to home or Selfcare documented as of this encounter Visit Diagnoses Not on filedocumented in this encounter Care Teams Electrical Helper Relationship Specialty Start Date End Date Pritesh Chu MD [address] [address] PCP - General Family Medicine 04/18/24 Markus Finley MD [address] [place] [address] Consulting Physician Medical Oncology 04/18/24 documented as of this encounter
--- OUTSIDE RECORDS SUMMARY | 2024-10-27 03:41 | XMS_ITS | Encounter Summary ---
Author Organization [facility] Address [address] [facility] [place] [address] Phone Care Team Providers Care Pigment Furnace Tender Name Role Phone Pritesh Chu MD Primary Care Provider [phone] Markus Finley MD Unavailable [phone] Encounter Details Date Type Department Care Team (Latest Contact Info) Description 07/06/2024 9:30 AM CDT Clinical Support [facility] Oncology Services [address] [place] [address] Markus Finley MD [address] [place] [address] Hypokalemia due to excessive gastrointestinal loss of [...] st Contact Info) Description 11/15/2024 1:00 PM PRODUCTION SUPPORT SPECIALIST [facility] 1 [place] [address] Markus Finley MD [address] [place] [address] 11/15/2024 2:00 PM PRODUCTION SUPPORT SPECIALIST [facility]ment [facility] 1 [place] [address] Markus Finley MD [address] [place] [address] Discharge Disposition: Discharged to home or Selfcare documented as of this encounter Procedures Procedure Name Priority Date/Time Associated Diagnosis Comments CMP (COMPREHENSIVE METABOLIC PANEL) STAT 07/06/2024 10:19 AM CDT documented in this encounter Results * (ABNORMAL) CMP (Comprehensive Metabolic Panel) (07/06/2024 10:19 AM CDT) SODIUM 131(L) 136 - 145 mmol/L 07/06/2024 11:13 AM CDT [facility] POTASSIUM 2.7(LL) 3.5 - 5.1 mmol/L 07/06/2024 11:13 AM CDT [facility] CHLORIDE 105 98 - 107 mmol/L 07/06/2024 11:13 AM CDT [facility] CO2, VENOUS 17(L) 22 - 30 mmol/L 07/06/2024 11:13 AM CDT [facility] ANION GAP 11.7 <18.0 mmol/L 07/06/2024 11:13 AM [facility] GLUCOSE 143(H) 70 - 99 mg/dL 07/06/2024 11:13 AM T [facility] BUN 8 5 - 18 mg/dL 07/06/2024 11:13 AM [facility] CREATININE, BLOOD 0.99 0.60 - 1.00 mg/dL 07/06/2024 11:13 AM T [facility] BUN/CREATININE RATIO 8(L) 12 - 20 ratio 07/06/2024 11:13 AM [facility] TOTAL PROTEIN 6.2(L) 6.3 - 8.2 g/dL 07/06/2024 11:13 AM [facility] ALBUMIN 3.5 3.5 - 5.0 g/dL 07/06/2024 11:13 AM [facility] A/G RATIO 1.3 1.0 - 2.2 07/06/2024 11:13 AM [facility] CALCIUM 9.0 8.7 - 10.5 mg/dL 07/06/2024 11:13 AM [facility] T BILI 0.5 0.2 - 1.2 mg/dL 07/06/2024 11:13 AM [facility] SGOT (AST) 24 5 - 34 U/L 07/06/2024 11:13 AM [facility] SGPT (ALT) 50 0 - 55 U/L 07/06/2024 11:13 AM [facility] ALKALINE PHOSPHATASE 57 40 - 150 U/L 07/06/2024 11:13 AM [facility] GFR, ESTIMATED >60 >=60 07/06/2024 11:13 AM [facility] Comment: Creatinine Clearance is the preferred criteria for selecting drug dose adjustments in renally impaired patients. ??The GFR is provided as additional pertinent clinical information. GFR is reported in mL/min/1.73 sq m. Calculation based on the Chronic Kidney Disease Epidemiology Collaboration (CKD- EPI) equation refit without adjustment for race. GFR, EST. >60 >=60 024 11:13 AM CDT [facility] GFR, EST. NONAFRICAN >60 >=60 07/06/2024 11:13 AM CDT [facility] Blood Sub-Q Port Venou s Access Device (Medi-Port, Implanted Port) / Unknown 07/06/2024 10:19 AM CDT 07/06/2024 10:19 AM CDT us Markus Finley MD CHEMISTRY ORDERABLES Fin al Result [facility] #[address] [place] [address] documented in this encounter Visit Diagnoses Diagnosis [...] Units documented in this encounter Care Teams Pigment Furnace Tender Relationship Specialty Start Date End Date Pritesh Chu MD [address] [address] PCP - General Family Medicine 04/18/24 Markus Finley MD [address] [place] [address] Consulting Physician Medical Oncology 04/18/24 documented as of this encounter
--- OUTSIDE RECORDS SUMMARY | 2024-10-27 03:41 | XMS_ITS | Encounter Summary ---
Author Organization [facility] Address [address] [facility] [place] [address] Phone Care Team Providers Care Car Body Mechanic Name Role Phone Pritesh Chu MD Primary Care Provider [phone] Markus Finley MD Unavailable [phone] Encounter Details Date Type Department Care Team (Latest Contact Info) Description 04/19/2024 7:10 AM CDT - 04/19/2024 11:59 PM CDT Hospital Encounter [facility] Radiology Resources 1 [place] [address] Markus Finley MD [address] [place] [address] Discharge Disposition: Discharged to home or Selfcare [...] st Contact Info) Description 11/15/2024 1:00 PM LAST PATTERN GRADER Lab [facility] 1 [place] [address] Markus Finley MD [address] [place] [address] 11/15/2024 2:00 PM LAST PATTERN GRADER [facility] 1 [place] [address] Markus Finley MD [address] [place] [address] Discharge Disposition: Discharged to home or Selfcare documented as of this encounter Procedures Procedure Name Priority Date/Time Associated Diagnosis Comments PET REFERENCE IMAGES FOR IMPORT Routine 04/19/2024 7:10 AM CDT documented in this encounter Results * PET REFERENCE IMAGES FOR IMPORT (04/19/2024 7:10 AM CDT) Markus Finley MD [facility] [place] ORDERABLES Final Result documented in this encounter Visit Diagnoses Not on filedocumented in this encounter Care Teams Car Body Mechanic Relationship Specialty Start Date End Date Pritesh Chu MD [address] [address] PCP - General Family Medicine 04/18/24 Markus Finley MD [address] [place] [address] Consulting Physician Medical Oncology 04/18/24 documented as of this encounter
--- OUTSIDE RECORDS SUMMARY | 2024-10-27 03:41 | XMS_ITS | Encounter Summary ---
Author Organization [facility] Address [address] [place] [address] Phone Care Team Providers Care Central Supply Technician Name Role Phone Pritesh Chu MD Primary Care Provider [phone] Markus Finley MD Unavailable [phone] Encounter Details Date Type Department Care Team (Late st Contact Info) Description 06/01/2024 Telephone [facility] Oncology Services [address] [place] [address] Markus Finley MD [address] [place] [address] Social History Tobacco Use Types Packs/Day Years [...] Contact Info) Description 11/15/2024 1:00 PM LEARNING SUPPORT SPECIALIST Lab [facility] Laboratory Services 1 [place] [address] Markus Finley MD [address] [place] [address] 11/15/2024 2:00 PM LEARNING SUPPORT SPECIALIST Appointment [facility] MRI [address] [place] [address] Markus Finley MD [address] [place] [address] Discharge Disposition: Discharged to home or Selfcare documented as of this encounter Visit Diagnoses Not on filedocumented in this encounter Care Teams Central Supply Technician Relationship Specialty Start Date End Date Pritesh Chu MD [address] [place] [address] PCP - General Family Medicine 04/18/24 Markus Finley MD [address] [place] [address] Consulting Physician Medical Oncology 04/18/24 documented as of this encounter
--- OUTSIDE RECORDS SUMMARY | 2024-10-27 03:41 | XMS_ITS | Encounter Summary ---
Author Organization [employer] Care Team Providers Care Mastic Floor Layer Name Role Phone Pritesh Chu MD Primary Care Provider [phone] Markus Finley MD Unavailable [phone] Encounter Details Date Type Department Care Team (Latest Contact Info) Description 07/03/2024 Travel Social History Tobacco Use Types Packs/Day Years Used Date Smoking Tobacco: Former Cigarettes 0.5 8.5 S tarted: 04/18/2016 Smokeless Tobacco: Never Alcohol Use Standard Drinks/Week Comments Yes 0 (1 standard drink = 0.6 oz pur e alcohol) [facility] Utilities Answer Date Recorded In the past 12 months has [employer], gas, oil, or water [employer] threatened to shut off services in your [...] often do you attend chur ch or anabaptism services? Never 06/27/2024 Do you belong to [...] heating? Not hard at all 06/27/2024 [facility] [place] of Occupat ional Health - Occupational Stress [...] st Contact Info) Description 11/15/2024 1:00 PM SANDBLASTER PAINT SPRAYER Lab [facility] Laboratory Services 1 [place] [address] Markus Finley MD [address] [place] [address] 11/15/2024 2:00 PM SANDBLASTER PAINT SPRAYER [facility]ment [facility] 1 [place] [address] Markus Finley MD [address] [place] [address] Discharge Disposition: Discharged to home or Selfcare documented as of this encounter Visit Diagnoses Not on filedocumented in this encounter Care Teams Mastic Floor Layer Relationship Specialty Start Date End Date Pritesh Chu MD [address] [place] [address] PCP - General Family Medicine 04/18/24 Markus Finley MD [address] [place] [address] Consulting Physician Medical Oncology 04/18/24 documented as of this encounter
--- OUTSIDE RECORDS SUMMARY | 2024-10-27 03:41 | XMS_ITS | Encounter Summary ---
Author Organization [facility] Care Team Providers Care Leasing Director Name Role Phone Pritesh Chu MD Primary Care Provider [phone] Markus Finley MD Unavailable [phone] Encounter Details Date Type Department Care Team [...] Contact Info) Description 11/15/2024 1:00 PM FIELD CASE MANAGER Lab [facility] Laboratory Services 1 [place] [address] Markus Finley MD [address] [place] [address] 11/15/2024 2:00 PM FIELD CASE MANAGER Appointment [facility] MRI [address] [place] [address] Markus Finley MD [address] [place] [address] Discharge Disposition: Discharged to home or Selfcare documented as of this encounter Visit Diagnoses Not on filedocumented in this encounter Care Teams Leasing Director Relationship Specialty Start Date End Date Pritesh Chu MD [address] [place] [address] PCP - General Family Medicine 04/18/24 Markus Finley MD [address] [place] [address] Consulting Physician Medical Oncology 04/18/24 documented as of this encounter
--- OUTSIDE RECORDS SUMMARY | 2024-10-27 03:41 | XMS_ITS | Encounter Summary ---
Author Organization [facility] Care Team Providers Care Nursery Teacher Name Role Phone Pritesh Chu MD Primary Care Provider [phone] Markus Finley MD Unavailable [phone] Encounter Details Date Type Department Care Team [...] st Contact Info) Description 11/15/2024 1:00 PM HEEL SEAT FITTER Lab [facility] Laboratory Services 1 [place] [address] Markus Finley MD [address] [place] [address] 11/15/2024 2:00 PM HEEL SEAT FITTER Appointment [facility] MRI [address] [place] [address] Markus Finley MD [address] [place] [address] Discharge Disposition: Discharged to home or Selfcare documented as of this encounter Visit Diagnoses Not on filedocumented in this encounter Care Teams Nursery Teacher Relationship Specialty Start Date End Date Pritesh Chu MD [address] [place] [address] PCP - General Family Medicine 04/18/24 Markus Finley MD [address] [place] [address] Consulting Physician Medical Oncology 04/18/24 documented as of this encounter
--- OUTSIDE RECORDS SUMMARY | 2024-10-27 03:41 | XMS_ITS | Encounter Summary ---
Author Organization [facility] Address [address] [facility] [place] [address] Phone Care Team Providers Care Log Handler Name Role Phone Pritesh Chu MD Primary Care Provider [phone] Markus Finley MD Unavailable [phone] Reason for Referral * Consult, Test & Initiate Treatment (Routine) - Closed Specialty Diagnoses / Procedures Referred By Contross t Referred To Contact Diagnoses Metastatic melanoma (HCC) Markus Finley MD [address] [place] [address] Phone: tel: fax: [facility] [address] [place] [phone] Phone: tel: fax: Referral ID Status Reason Start Date Expiration Date Visits Re quested Visits Authorized [id number] Closed 05/01/2024 1 1 Scheduling Instructions [facility] is being referred for new chemotherapy. Please contact patient for scheduling questions or concerns. Reason for Visit * Episode Based Medications (Routine) - Closed Specialty Diagnoses / Procedures Referred By Contac t Referred To Contact Diagnoses Metastatic melanoma (HCC) Markus Finley MD [address] [place] [address] Phone: tel: fax: [facility] [address] [place] [phone] Phone: tel: fax: Referral ID Status Reason Start Date Expiration Date Visits Re quested Visits Authorized [id number] Closed 04/19/2024 1 30 Encounter Details Date Type Department Care Team (Late st Contact Info) Description 05/01/2024 1:00 PM CDT Clinical Support [facility] [address] [place] [phone] [place] [address] [place] [phone] Metastatic melanoma (HCC) (Primary Dx) Discharge [...] answered to patient's satisfaction. Reviewed dose with [facility] per pharmacy request, using flip dose for Melanoma. Chemotherapy given per MD order and pt tolerated well. Port flushed with NS and heparin per protocol and port needle removed. Port site covered with bandaid. Pt left in stable condition. documented in this encounter Plan of Treatment Upcoming Encounters Date Type Department Care Team (Late st Contact Info) Description 11/15/2024 1:00 PM [facility] [employer] [facility] [address] [place] [address] Markus Finley MD [address] [place] [address] 11/15/2024 2:00 PM [employer] [facility]ment [facility] [address] [place] [address] Markus Finley MD [address] [place] [address] Discharge Disposition: Discharged to home or Selfcare [...] THYROID STIMULATING HORMONE (TSH) (10/02/2024 3:08 PM [employer]) TSH 1.466 0.300 - 5.000 mIU/L 10/02/2024 3:59 PM [employer] [facility] Blood Sub-Q Port Venou s Access Device (Medi-Port, Implanted Port) / Unknown 10/02/2024 3:08 PM [employer] 10/02/2024 3:08 PM [employer] Markus Finley MD CHEMISTRY ORDERABLES Fin al Result [facility] [place] [address] * (ABNORMAL) CMP (COMPREHENSIVE METABOLIC PANEL) (10/02/2024 3:08 PM [employer]) SODIUM 136 136 - 145 mmol/L 10/02/2024 3:40 PM [employer] [facility] POTASSIUM 4.5 3.5 - 5.1 mmol/L 10/02/2024 3:40 PM [facility] CHLORIDE 109(H) 98 - 107 mmol/L 10/02/2024 3:40 PM [facility] CO2, VENOUS 21(L) 22 - 30 mmol/L 10/02/2024 3:40 PM [facility] ANION GAP 10.5 <18.0 mmol/L 10/02/2024 3:40 PM [facility] GLUCOSE 118(H) 70 - 99 mg/dL 10/02/2024 3:40 PM [facility] BUN 21(H) 5 - 18 mg/dL 10/02/2024 3:40 PM [facility] CREATININE, BLOOD 0.94 0.60 - 1.00 mg/dL 10/02/2024 3:40 PM [facility] BUN/CREATININE RATIO 22(H) 12 - 20 ratio 10/02/2024 3:40 PM [facility] TOTAL PROTEIN 6.2(L) 6.3 - 8.2 g/dL 10/02/2024 3:40 PM [facility] ALBUMIN 3.9 3.5 - 5.0 g/dL 10/02/2024 3:40 PM [facility] A/G RATIO 1.7 1.0 - 2.2 10/02/2024 3:40 PM [facility] CALCIUM 9.0 8.7 - 10.5 mg/dL 10/02/2024 3:40 PM [facility] T BILI 0.2 0.2 - 1.2 mg/dL 10/02/2024 3:40 PM [facility] SGOT (AST) 17 5 - 34 U/L 10/02/2024 3:40 PM [facility] SGPT (ALT) 52 0 - 55 U/L 10/02/2024 3:40 PM [facility] ALKALINE PHOSPHATASE 45 40 - 150 U/L 10/02/2024 3:40 PM [facility] IS THE PATIENT REQUIRED TO BE FASTING? No 10/02/2024 3:40 PM [employer] [facility] GFR, ESTIMATED >60 >=60 10/02/2024 3:40 PM [employer] [facility] Comment: Creatinine Clearance is the preferred criteria for selecting drug dose adjustments in renally impaired patients. ??The GFR is provided as additional pertinent clinical information. GFR is reported in mL/min/1.73 sq m. Calculation based on the Chronic Kidney Disease Epidemiology Collaboration (CKD- EPI) equation refit without adjustment for race. GFR, EST. >60 >=60 024 3:40 PM [employer] [facility] GFR, EST. NONAFRICAN >60 >=60 10/02/2024 3:40 PM [employer] [facility] Blood Sub-Q Port Venou s Access Device (Medi-Port, Implanted Port) / Unknown 10/02/2024 3:08 PM [employer] 10/02/2024 3:08 PM [employer] Markus Finley MD CHEMISTRY ORDERABLES Fin al Result Performing Organization Address City/[facility]/ZIP Co de Phone Number [facility] [place] [address] * THYROID STIMULATING HORMONE (TSH) (09/25/2024 2:03 PM [employer]) TSH 2.382 0.300 - 5.000 mIU/L 09/25/2024 2:49 PM [employer] [facility] Blood Sub-Q Port Venou s Access Device (Medi-Port, Implanted Port) / Unknown 09/25/2024 2:03 PM [employer] 09/25/2024 2:03 PM [employer] Markus Finley MD CHEMISTRY ORDERABLES Fin al Result Performing Organization Address City/[facility]/ZIP Co de Phone Number [facility] [place] [address] * (ABNORMAL) CMP (COMPREHENSIVE METABOLIC PANEL) (09/25/2024 2:03 PM [facility]) SODIUM 141 136 - 145 mmol/L 09/25/2024 2:32 PM [facility] POTASSIUM 4.2 3.5 - 5.1 mmol/L 09/25/2024 2:32 PM [facility] CHLORIDE 109(H) 98 - 107 mmol/L 09/25/2024 2:32 PM [facility] CO2, VENOUS 25 22 - 30 mmol/L 09/25/2024 2:32 PM [facility] ANION GAP 11.2 <18.0 mmol/L 09/25/2024 2:32 PM [facility] GLUCOSE 95 70 - 99 mg/dL 09/25/2024 2:32 PM [facility] BUN 22(H) 5 - 18 mg/dL 09/25/2024 2:32 PM [facility] CREATININE, BLOOD 0.86 0.60 - 1.00 mg/dL 09/25/2024 2:32 PM [facility] BUN/CREATININE RATIO 26(H) 12 - 20 ratio 09/25/2024 2:32 PM [facility] TOTAL PROTEIN 6.3 6.3 - 8.2 g/dL 09/25/2024 2:32 PM [facility] ALBUMIN 4.0 3.5 - 5.0 g/dL 09/25/2024 2:32 PM [facility] A/G RATIO 1.7 1.0 - 2.2 09/25/2024 2:32 PM [facility] CALCIUM 9.0 8.7 - 10.5 mg/dL 09/25/2024 2:32 PM [facility] T BILI 0.5 0.2 - 1.2 mg/dL 09/25/2024 2:32 PM [facility] SGOT (AST) 20 5 - 34 U/L 09/25/2024 2:32 PM [facility] SGPT (ALT) 45 0 - 55 U/L 09/25/2024 2:32 PM [employer] [facility] ALKALINE PHOSPHATASE 39(L) 40 - 150 U/L 09/25/2024 2:32 PM [employer] [facility] IS THE PATIENT REQUIRED TO BE FASTING? No 09/25/2024 2:32 PM [employer] [facility] GFR, ESTIMATED >60 >=60 09/25/2024 2:32 PM [employer] [facility] Comment: Creatinine Clearance is the preferred criteria for selecting drug dose adjustments in renally impaired patients. ??The GFR is provided as additional pertinent clinical information. GFR is reported in mL/min/1.73 sq m. Calculation based on the Chronic Kidney Disease Epidemiology Collaboration (CKD- EPI) equation refit without adjustment for race. GFR, EST. >60 >=60 024 2:32 PM [employer] [facility] GFR, EST. NONAFRICAN >60 >=60 09/25/2024 2:32 PM [employer] [facility] Blood Sub-Q Port Venou s Access Device (Medi-Port, Implanted Port) / Unknown 09/25/2024 2:03 PM [employer] 09/25/2024 2:03 PM [employer] Markus Finley MD CHEMISTRY ORDERABLES Fin al Result [facility] [place] [address] * THYROID STIMULATING HORMONE (TSH) (09/18/2024 2:21 PM [employer]) TSH 1.270 0.300 - 5.000 mIU/L 09/18/2024 3:31 PM [employer] [facility] Blood Sub-Q Port Venou s Access Device (Medi-Port, Implanted Port) / Unknown 09/18/2024 2:21 PM [employer] 09/18/2024 2:21 PM [employer] Markus Finley MD CHEMISTRY ORDERABLES Jacob al Result [facility] [place] [address] * (ABNORMAL) CMP (COMPREHENSIVE METABOLIC PANEL) (09/18/2024 2:21 PM [employer]) SODIUM 140 136 - 145 mmol/L 09/18/2024 2:50 PM [employer] [facility] POTASSIUM 4.2 3.5 - 5.1 mmol/L 09/18/2024 2:50 PM [employer] [facility] CHLORIDE 107 98 - 107 mmol/L 09/18/2024 2:50 PM [facility] CO2, VENOUS 25 22 - 30 mmol/L 09/18/2024 2:50 PM [employer] [facility] ANION GAP 12.2 <18.0 mmol/L 09/18/2024 2:50 PM [employer] [facility] GLUCOSE 114(H) 70 - 99 mg/dL 09/18/2024 2:50 PM [employer] [facility] BUN 24(H) 5 - 18 mg/dL 09/18/2024 2:50 PM [facility] CREATININE, BLOOD 0.78 0.60 - 1.00 mg/dL 09/18/2024 2:50 PM [facility] BUN/CREATININE RATIO 31(H) 12 - 20 ratio 09/18/2024 2:50 PM [facility] TOTAL PROTEIN 5.9(L) 6.3 - 8.2 g/dL 09/18/2024 2:50 PM [employer] [facility] ALBUMIN 3.8 3.5 - 5.0 g/dL 09/18/2024 2:50 PM [facility] A/G RATIO 1.8 1.0 - 2.2 09/18/2024 2:50 PM [employer] [facility] CALCIUM 9.0 8.7 - 10.5 mg/dL 09/18/2024 2:50 PM [facility] T BILI 0.4 0.2 - 1.2 mg/dL 09/18/2024 2:50 PM [employer] [facility] SGOT (AST) 11 5 - 34 U/L 09/18/2024 2:50 PM [employer] [facility] SGPT (ALT) 45 0 - 55 U/L 09/18/2024 2:50 PM [employer] [facility] ALKALINE PHOSPHATASE 45 40 - 150 U/L 09/18/2024 2:50 PM [employer] [facility] IS THE PATIENT REQUIRED TO BE FASTING? No 09/18/2024 2:50 PM [employer] [facility] GFR, ESTIMATED >60 >=60 09/18/2024 2:50 PM [employer] [facility] Comment: Creatinine Clearance is the preferred criteria for selecting drug dose adjustments in renally impaired patients. ??The GFR is provided as additional pertinent clinical information. GFR is reported in mL/min/1.73 sq m. Calculation based on the Chronic Kidney Disease Epidemiology Collaboration (CKD- EPI) equation refit without adjustment for race. GFR, EST. >60 >=60 024 2:50 PM [employer] [facility] GFR, EST. NONAFRICAN >60 >=60 09/18/2024 2:50 PM [employer] [facility] Blood Sub-Q Port Venou s Access Device (Medi-Port, Implanted Port) / Unknown 09/18/2024 2:21 PM [employer] 09/18/2024 2:21 PM [employer] Markus Finley MD CHEMISTRY ORDERABLES Fin al Result [facility] [place] [address] * (ABNORMAL) CMP (COMPREHENSIVE METABOLIC PANEL) (09/11/2024 1:32 PM [employer]) SODIUM 139 136 - 145 mmol/L 09/11/2024 2:07 PM [employer] [facility] POTASSIUM 3.8 3.5 - 5.1 mmol/L 09/11/2024 2:07 PM [facility] CHLORIDE 107 98 - 107 mmol/L 09/11/2024 2:07 PM [facility] CO2, VENOUS 22 22 - 30 mmol/L 09/11/2024 2:07 PM [facility] ANION GAP 13.8 <18.0 mmol/L 09/11/2024 2:07 PM [facility] GLUCOSE 145(H) 70 - 99 mg/dL 09/11/2024 2:07 PM [facility] BUN 25(H) 5 - 18 mg/dL 09/11/2024 2:07 PM [facility] CREATININE, BLOOD 0.87 0.60 - 1.00 mg/dL 09/11/2024 2:07 PM [facility] BUN/CREATININE RATIO 29(H) 12 - 20 ratio 09/11/2024 2:07 PM [facility] TOTAL PROTEIN 6.2(L) 6.3 - 8.2 g/dL 09/11/2024 2:07 PM [facility] ALBUMIN 4.0 3.5 - 5.0 g/dL 09/11/2024 2:07 PM [facility] A/G RATIO 1.8 1.0 - 2.2 09/11/2024 2:07 PM [facility] CALCIUM 8.9 8.7 - 10.5 mg/dL 09/11/2024 2:07 PM [facility] T BILI 0.5 0.2 - 1.2 mg/dL 09/11/2024 2:07 PM [facility] SGOT (AST) 13 5 - 34 U/L 09/11/2024 2:07 PM [facility] SGPT (ALT) 56(H) 0 - 55 U/L 09/11/2024 2:07 PM [facility] ALKALINE PHOSPHATASE 58 40 - 150 U/L 09/11/2024 2:07 PM [facility] IS THE PATIENT REQUIRED TO BE FASTING? No 09/11/2024 2:07 PM [employer] [facility] GFR, ESTIMATED >60 >=60 09/11/2024 2:07 PM [employer] [facility] Comment: Creatinine Clearance is the preferred criteria for selecting drug dose adjustments in renally impaired patients. ??The GFR is provided as additional pertinent clinical information. GFR is reported in mL/min/1.73 sq m. Calculation based on the Chronic Kidney Disease Epidemiology Collaboration (CKD- EPI) equation refit without adjustment for race. GFR, EST. >60 >=60 024 2:07 PM [employer] [facility] GFR, EST. NONAFRICAN >60 >=60 09/11/2024 2:07 PM [employer] [facility] Blood Sub-Q Port Venou s Access Device (Medi-Port, Implanted Port) / Unknown 09/11/2024 1:32 PM [employer] 09/11/2024 1:33 PM [employer] Markus Finley MD CHEMISTRY ORDERABLES Fin al Result Performing Organization Address City/[facility]/ZIP Co de Phone Number [facility] [place] [address] * THYROID STIMULATING HORMONE (TSH) (09/07/2024 11:55 AM CDT) TSH 1.777 0.300 - 5.000 mIU/L 09/07/2024 12:42 PM CDT [facility] Blood Sub-Q Port Venou s Access Device (Medi-Port, Implanted Port) / Unknown 09/07/2024 11:55 AM CDT 09/07/2024 11:55 AM CDT Markus Finley MD CHEMISTRY ORDERABLES Fin al Result [facility] [place] [address] * (ABNORMAL) CMP (COMPREHENSIVE METABOLIC PANEL) (09/07/2024 11:55 AM CDT) SODIUM 139 136 - 145 mmol/L 09/07/2024 12:24 PM CDT [facility] POTASSIUM 4.7 3.5 - 5.1 mmol/L 09/07/2024 12:24 PM CDT [facility] CHLORIDE 105 98 - 107 mmol/L 09/07/2024 12:24 PM CDT [facility] CO2, VENOUS 26 22 - 30 mmol/L 09/07/2024 12:24 PM CDT [facility] ANION GAP 12.7 <18.0 mmol/L 09/07/2024 12:24 PM CDT [facility] GLUCOSE 102(H) 70 - 99 mg/dL 09/07/2024 12:24 PM CDT [facility] BUN 20(H) 5 - 18 mg/dL 09/07/2024 12:24 PM CDT [facility] CREATININE, BLOOD 0.82 0.60 - 1.00 mg/dL 09/07/2024 12:24 PM CDT [facility] BUN/CREATININE RATIO 24(H) 12 - 20 ratio 09/07/2024 12:24 PM CDT [facility] TOTAL PROTEIN 6.1(L) 6.3 - 8.2 g/dL 09/07/2024 12:24 PM CDT [facility] ALBUMIN 3.9 3.5 - 5.0 g/dL 09/07/2024 12:24 PM CDT [facility] A/G RATIO 1.8 1.0 - 2.2 09/07/2024 12:24 PM CDT [facility] CALCIUM 9.2 8.7 - 10.5 mg/dL 09/07/2024 12:24 PM CDT [facility] T BILI 0.6 0.2 - 1.2 mg/dL 09/07/2024 12:24 PM CDT [facility] SGOT (AST) 12 5 - 34 U/L 09/07/2024 12:24 PM CDT [facility] SGPT (ALT) 53 0 - 55 U/L 09/07/2024 12:24 PM CDT [facility] ALKALINE PHOSPHATASE 52 40 - 150 U/L 09/07/2024 12:24 PM CDT [facility] IS THE PATIENT REQUIRED TO BE FASTING? No 09/07/2024 12:24 PM CDT [facility] GFR, ESTIMATED >60 >=60 09/07/2024 12:24 PM CDT [facility] Comment: Creatinine Clearance is the preferred criteria for selecting drug dose adjustments in renally impaired patients. ??The GFR is provided as additional pertinent clinical information. GFR is reported in mL/min/1.73 sq m. Calculation based on the Chronic Kidney Disease Epidemiology Collaboration (CKD- EPI) equation refit without adjustment for race. GFR, EST. >60 >=60 024 12:24 PM CDT [facility] GFR, EST. NONAFRICAN >60 >=60 09/07/2024 12:24 PM CDT [facility] Blood Sub-Q Port Venou s Access Device (Medi-Port, Implanted Port) / Unknown 09/07/2024 11:55 AM CDT 09/07/2024 11:55 AM CDT Markus Finley MD CHEMISTRY ORDERABLES Fin al Result [facility] [place] [address] * (ABNORMAL) CMP (COMPREHENSIVE METABOLIC PANEL) (08/24/2024 12:05 PM CDT) SODIUM 138 136 - 145 mmol/L 08/24/2024 12:43 PM CDT [facility] POTASSIUM 3.5 3.5 - 5.1 mmol/L 08/24/2024 12:43 PM CDT [facility] CHLORIDE 106 98 - 107 mmol/L 08/24/2024 12:43 PM CDT [facility] CO2, VENOUS 22 22 - 30 mmol/L 08/24/2024 12:43 PM CDT [facility] ANION GAP 13.5 <18.0 mmol/L 08/24/2024 12:43 PM CDT [facility] GLUCOSE 98 70 - 99 mg/dL 08/24/2024 12:43 PM CDT [facility] BUN 17 5 - 18 mg/dL 08/24/2024 12:43 PM CDT [facility] CREATININE, BLOOD 0.95 0.60 - 1.00 mg/dL 08/24/2024 12:43 PM CDT [facility] BUN/CREATININE RATIO 18 12 - 20 ratio 08/24/2024 12:43 PM CDT [facility] TOTAL PROTEIN 5.6(L) 6.3 - 8.2 g/dL 08/24/2024 12:43 PM CDT [facility] ALBUMIN 3.5 3.5 - 5.0 g/dL 08/24/2024 12:43 PM CDT [facility] A/G RATIO 1.7 1.0 - 2.2 08/24/2024 12:43 PM CDT [facility] CALCIUM 8.7 8.7 - 10.5 mg/dL 08/24/2024 12:43 PM CDT [facility] T BILI 0.5 0.2 - 1.2 mg/dL 08/24/2024 12:43 PM CDT [facility] SGOT (AST) 27 5 - 34 U/L 08/24/2024 12:43 PM CDT [facility] SGPT (ALT) 107(H) 0 - 55 U/L 08/24/2024 12:43 PM CDT [facility] ALKALINE PHOSPHATASE 56 40 - 150 U/L 08/24/2024 12:43 PM CDT [facility] IS THE PATIENT REQUIRED TO BE FASTING? No 08/24/2024 12:43 PM CDT [facility] GFR, ESTIMATED >60 >=60 08/24/2024 12:43 PM CDT [facility] Comment: Creatinine Clearance is the preferred criteria for selecting drug dose adjustments in renally impaired patients. ??The GFR is provided as additional pertinent clinical information. GFR is reported in mL/min/1.73 sq m. Calculation based on the Chronic Kidney Disease Epidemiology Collaboration (CKD- EPI) equation refit without adjustment for race. GFR, EST. >60 >=60 024 12:43 PM CDT [facility] GFR, EST. NONAFRICAN >60 >=60 08/24/2024 12:43 PM CDT [facility] Blood Venipuncture / Unknown 08/24/2024 12:05 PM CDT 08/24/2024 12:05 PM CDT Markus Finley MD CHEMISTRY ORDERABLES Fin al Result [facility] [place] [address] * (ABNORMAL) CMP (COMPREHENSIVE METABOLIC PANEL) (08/20/2024 2:00 PM CDT) SODIUM 133(L) 136 - 145 mmol/L 08/20/2024 2:59 PM CDT [facility] POTASSIUM 4.3 3.5 - 5.1 mmol/L 08/20/2024 2:59 PM CDT [facility] CHLORIDE 106 98 - 107 mmol/L 08/20/2024 2:59 PM CDT [facility] CO2, VENOUS 18(L) 22 - 30 mmol/L 08/20/2024 2:59 PM CDT [facility] ANION GAP 13.3 <18.0 mmol/L 08/20/2024 2:59 PM CDT [facility] GLUCOSE 121(H) 70 - 99 mg/dL 08/20/2024 2:59 PM CDT [facility] BUN 18 5 - 18 mg/dL 08/20/2024 2:59 PM CDT [facility] CREATININE, BLOOD 0.87 0.60 - 1.00 mg/dL 08/20/2024 2:59 PM CDT [facility] BUN/CREATININE RATIO 21(H) 12 - 20 ratio 08/20/2024 2:59 PM CDT [facility] TOTAL PROTEIN 6.0(L) 6.3 - 8.2 g/dL 08/20/2024 2:59 PM CDT [facility] ALBUMIN 3.7 3.5 - 5.0 g/dL 08/20/2024 2:59 PM CDT [facility] A/G RATIO 1.6 1.0 - 2.2 08/20/2024 2:59 PM CDT [facility] CALCIUM 8.9 8.7 - 10.5 mg/dL 08/20/2024 2:59 PM CDT [facility] T BILI 0.4 0.2 - 1.2 mg/dL 08/20/2024 2:59 PM CDT [facility] SGOT (AST) 13 5 - 34 U/L 08/20/2024 2:59 PM CDT [facility] SGPT (ALT) 43 0 - 55 U/L 08/20/2024 2:59 PM CDT [facility] ALKALINE PHOSPHATASE 64 40 - 150 U/L 08/20/2024 2:59 PM CDT [facility] IS THE PATIENT REQUIRED TO BE FASTING? No 08/20/2024 2:59 PM CDT [facility] GFR, ESTIMATED >60 >=60 08/20/2024 2:59 PM CDT [facility] Comment: Creatinine Clearance is the preferred criteria for selecting drug dose adjustments in renally impaired patients. ??The GFR is provided as additional pertinent clinical information. GFR is reported in mL/min/1.73 sq m. Calculation based on the Chronic Kidney Disease Epidemiology Collaboration (CKD- EPI) equation refit without adjustment for race. GFR, EST. >60 >=60 024 2:59 PM CDT [facility] GFR, EST. NONAFRICAN >60 >=60 08/20/2024 2:59 PM CDT [facility] Blood Venipuncture / Unknown 08/20/2024 2:00 PM CDT 08/20/2024 2:02 PM CDT us Markus Finley MD CHEMISTRY ORDERABLES [facility] al Result [facility] [address] [place] [address] * (ABNORMAL) CMP (COMPREHENSIVE METABOLIC PANEL) (08/15/2024 11:35 AM CDT) SODIUM 132(L) 136 - 145 mmol/L 08/15/2024 12:21 PM CDT [facility] POTASSIUM 4.0 3.5 - 5.1 mmol/L 08/15/2024 12:21 PM CDT [facility] CHLORIDE 100 98 - 107 mmol/L 08/15/2024 12:21 PM CDT [facility] CO2, VENOUS 25 22 - 30 mmol/L 08/15/2024 12:21 PM CDT [facility] ANION GAP 11.0 <18.0 mmol/L 08/15/2024 12:21 PM CDT [facility] GLUCOSE 87 70 - 99 mg/dL 08/15/2024 12:21 PM CDT [facility] BUN 24(H) 5 - 18 mg/dL 08/15/2024 12:21 PM CDT [facility] CREATININE, BLOOD 0.91 0.60 - 1.00 mg/dL 08/15/2024 12:21 PM CDT [facility] BUN/CREATININE RATIO 26(H) 12 - 20 ratio 08/15/2024 12:21 PM CDT [facility] TOTAL PROTEIN 6.2(L) 6.3 - 8.2 g/dL 08/15/2024 12:21 PM CDT [facility] ALBUMIN 3.7 3.5 - 5.0 g/dL 08/15/2024 12:21 PM CDT [facility] A/G RATIO 1.5 1.0 - 2.2 08/15/2024 12:21 PM CDT [facility] CALCIUM 8.8 8.7 - 10.5 mg/dL 08/15/2024 12:21 PM CDT [facility] T BILI 0.9 0.2 - 1.2 mg/dL 08/15/2024 12:21 PM CDT [facility] SGOT (AST) 21 5 - 34 U/L 08/15/2024 12:21 PM T [facility] SGPT (ALT) 69(H) 0 - 55 U/L 08/15/2024 12:21 PM T [facility] ALKALINE PHOSPHATASE 65 40 - 150 U/L 08/15/2024 12:21 PM T [facility] IS THE PATIENT REQUIRED TO BE FASTING? No 08/15/2024 12:21 PM CDT [facility] GFR, ESTIMATED >60 >=60 08/15/2024 12:21 PM T [facility] Comment: Creatinine Clearance is the preferred criteria for selecting drug dose adjustments in renally impaired patients. ??The GFR is provided as additional pertinent clinical information. GFR is reported in mL/min/1.73 sq m. Calculation based on the Chronic Kidney Disease Epidemiology Collaboration (CKD- EPI) equation refit without adjustment for race. GFR, EST. >60 >=60 024 12:21 PM CDT [facility] GFR, EST. NONAFRICAN >60 >=60 08/15/2024 12:21 PM T [facility] Blood Sub-Q Port Venou s Access Device (Medi-Port, Implanted Port) / Unknown 08/15/2024 11:35 AM CDT 08/15/2024 11:35 AM CDT us Markus Finley MD CHEMISTRY ORDERABLES Fin al Result [facility] [address] [place] [address] * (ABNORMAL) CMP (COMPREHENSIVE METABOLIC PANEL) (08/13/2024 11:39 AM CDT) SODIUM 132(L) 136 - 145 mmol/L 08/13/2024 12:47 PM CDT [facility] POTASSIUM 3.8 3.5 - 5.1 mmol/L 08/13/2024 12:47 PM CDT [facility] CHLORIDE 99 98 - 107 mmol/L 08/13/2024 12:47 PM CDT [facility] CO2, VENOUS 26 22 - 30 mmol/L 08/13/2024 12:47 PM CDT [facility] ANION GAP 10.8 <18.0 mmol/L 08/13/2024 12:47 PM CDT [facility] GLUCOSE 127(H) 70 - 99 mg/dL 08/13/2024 12:47 PM CDT [facility] BUN 16 5 - 18 mg/dL 08/13/2024 12:47 PM CDT [facility] CREATININE, BLOOD 0.88 0.60 - 1.00 mg/dL 08/13/2024 12:47 PM CDT [facility] BUN/CREATININE RATIO 18 12 - 20 ratio 08/13/2024 12:47 PM CDT [facility] TOTAL PROTEIN 6.2(L) 6.3 - 8.2 g/dL 08/13/2024 12:47 PM CDT [facility] ALBUMIN 3.7 3.5 - 5.0 g/dL 08/13/2024 12:47 PM CDT [facility] A/G RATIO 1.5 1.0 - 2.2 08/13/2024 12:47 PM CDT [facility] CALCIUM 8.9 8.7 - 10.5 mg/dL 08/13/2024 12:47 PM CDT [facility] T BILI 0.7 0.2 - 1.2 mg/dL 08/13/2024 12:47 PM CDT [facility] SGOT (AST) 17 5 - 34 U/L 08/13/2024 12:47 PM CDT [facility] SGPT (ALT) 62(H) 0 - 55 U/L 08/13/2024 12:47 PM CDT [facility] ALKALINE PHOSPHATASE 75 40 - 150 U/L 08/13/2024 12:47 PM CDT [facility] IS THE PATIENT REQUIRED TO BE FASTING? No 08/13/2024 12:47 PM CDT [facility] GFR, ESTIMATED >60 >=60 08/13/2024 12:47 PM CDT [facility] Comment: Creatinine Clearance is the preferred criteria for selecting drug dose adjustments in renally impaired patients. ??The GFR is provided as additional pertinent clinical information. GFR is reported in mL/min/1.73 sq m. Calculation based on the Chronic Kidney Disease Epidemiology Collaboration (CKD- EPI) equation refit without adjustment for race. GFR, EST. >60 >=60 024 12:47 PM CDT [facility] GFR, EST. NONAFRICAN >60 >=60 08/13/2024 12:47 PM CDT [facility] Blood Sub-Q Port Venou s Access Device (Medi-Port, Implanted Port) / Unknown 08/13/2024 11:39 AM CDT 08/13/2024 11:39 AM CDT us Markus Finley MD CHEMISTRY ORDERABLES Fin al Result [facility] [address] [place] [address] * (ABNORMAL) CMP (COMPREHENSIVE METABOLIC PANEL) (08/08/2024 12:00 PM CDT) SODIUM 133(L) 136 - 145 mmol/L 08/08/2024 12:40 PM CDT [facility] POTASSIUM 3.6 3.5 - 5.1 mmol/L 08/08/2024 12:40 PM CDT [facility] CHLORIDE 108(H) 98 - 107 mmol/L 08/08/2024 12:40 PM CDT [facility] CO2, VENOUS 20(L) 22 - 30 mmol/L 08/08/2024 12:40 PM CDT [facility] ANION GAP 8.6 <18.0 mmol/L 08/08/2024 12:40 PM T [facility] GLUCOSE 143(H) 70 - 99 mg/dL 08/08/2024 12:40 PM T [facility] BUN 12 5 - 18 mg/dL 08/08/2024 12:40 PM [facility] CREATININE, BLOOD 1.00 0.60 - 1.00 mg/dL 08/08/2024 12:40 PM T [facility] BUN/CREATININE RATIO 12 12 - 20 ratio 08/08/2024 12:40 PM [facility] TOTAL PROTEIN 6.0(L) 6.3 - 8.2 g/dL 08/08/2024 12:40 PM [facility] ALBUMIN 3.4(L) 3.5 - 5.0 g/dL 08/08/2024 12:40 PM T [facility] A/G RATIO 1.3 1.0 - 2.2 08/08/2024 12:40 PM T [facility] CALCIUM 8.8 8.7 - 10.5 mg/dL 08/08/2024 12:40 PM T [facility] T BILI 0.5 0.2 - 1.2 mg/dL 08/08/2024 12:40 PM T [facility] SGOT (AST) 15 5 - 34 U/L 08/08/2024 12:40 PM T [facility] SGPT (ALT) 58(H) 0 - 55 U/L 08/08/2024 12:40 PM CDT [facility] ALKALINE PHOSPHATASE 71 40 - 150 U/L 08/08/2024 12:40 PM CDT [facility] IS THE PATIENT REQUIRED TO BE FASTING? No 08/08/2024 12:40 PM CDT [facility] GFR, ESTIMATED >60 >=60 08/08/2024 12:40 PM CDT [facility] Comment: Creatinine Clearance is the preferred criteria for selecting drug dose adjustments in renally impaired patients. ??The GFR is provided as additional pertinent clinical information. GFR is reported in mL/min/1.73 sq m. Calculation based on the Chronic Kidney Disease Epidemiology Collaboration (CKD- EPI) equation refit without adjustment for race. GFR, EST. >60 >=60 12:40 PM CDT [facility] GFR, EST. NONAFRICAN >60 >=60 08/08/2024 12:40 PM CDT [facility] Blood Sub-Q Port Venou s Access Device (Medi-Port, Implanted Port) / Unknown 08/08/2024 12:00 PM CDT 08/08/2024 12:00 PM CDT Markus Finley MD CHEMISTRY ORDERABLES Fin al Result [facility] [address] [place] [address] * (ABNORMAL) THYROID STIMULATING HORMONE (TSH) (08/01/2024 11:05 AM CDT) TSH 114.336(H) 0.300 - 5.000 mIU/L 08/01/2024 12:49 PM CDT [facility] Blood Venipuncture / Unknown 08/01/2024 11:05 AM CDT 08/01/2024 11:05 AM CDT Markus Finley MD CHEMISTRY ORDERABLES Fin al Result [facility] [address] [place] [address] * (ABNORMAL) CMP (COMPREHENSIVE METABOLIC PANEL) (08/01/2024 11:05 AM CDT) SODIUM 127(L) 136 - 145 mmol/L 08/01/2024 12:10 PM CDT [facility] POTASSIUM 3.3(L) 3.5 - 5.1 mmol/L 08/01/2024 12:10 PM CDT [facility] CHLORIDE 91(L) 98 - 107 mmol/L 08/01/2024 12:10 PM CDT [facility] CO2, VENOUS 15(L) 22 - 30 mmol/L 08/01/2024 12:10 PM CDT [facility] ANION GAP 24.3(H) <18.0 mmol/L 08/01/2024 12:10 PM CDT [facility] GLUCOSE 157(H) 70 - 99 mg/dL 08/01/2024 12:10 PM CDT [facility] BUN 29(H) 5 - 18 mg/dL 08/01/2024 12:10 PM CDT [facility] CREATININE, BLOOD 4.24(H) 0.60 - 1.00 mg/dL 08/01/2024 12:10 PM CDT [facility] BUN/CREATININE RATIO 7(L) 12 - 20 ratio 08/01/2024 12:10 PM CDT [facility] TOTAL PROTEIN 9.0(H) 6.3 - 8.2 g/dL 08/01/2024 12:10 PM CDT [facility] ALBUMIN 4.7 3.5 - 5.0 g/dL 08/01/2024 12:10 PM CDT [facility] A/G RATIO 1.1 1.0 - 2.2 08/01/2024 12:10 PM CDT [facility] CALCIUM 10.6(H) 8.7 - 10.5 mg/dL 08/01/2024 12:10 PM CDT [facility] T BILI 0.7 0.2 - 1.2 mg/dL 08/01/2024 12:10 PM CDT [facility] SGOT (AST) 22 5 - 34 U/L 08/01/2024 12:10 PM CDT [facility] SGPT (ALT) 53 0 - 55 U/L 08/01/2024 12:10 PM CDT [facility] ALKALINE PHOSPHATASE 85 40 - 150 U/L 08/01/2024 12:10 PM CDT [facility] IS THE PATIENT REQUIRED TO BE FASTING? No 08/01/2024 12:10 PM CDT [facility] GFR, ESTIMATED 14(L) >=60 08/01/2024 12:10 PM CDT [facility] Comment: Creatinine Clearance is the preferred criteria for selecting drug dose adjustments in renally impaired patients. ??The GFR is provided as additional pertinent clinical information. GFR is reported in mL/min/1.73 sq m. Calculation based on the Chronic Kidney Disease Epidemiology Collaboration (CKD- EPI) equation refit without adjustment for race. GFR, EST. 16(L) >=60 08/01/ 024 12:10 PM CDT [facility] GFR, EST. NONAFRICAN 13(L) >=60 08/01/2024 12:10 PM CDT [facility] Blood Venipuncture / Unknown 08/01/2024 11:05 AM CDT 08/01/2024 11:05 AM CDT us Markus Finley MD CHEMISTRY ORDERABLES Fin al Result [facility] [address] [place] [address] * (ABNORMAL) THYROID STIMULATING HORMONE (TSH) (07/25/2024 11:02 AM CDT) TSH 135.164(H) 0.300 - 5.000 mIU/L 07/25/2024 12:22 PM CDT [facility] Blood Sub-Q Port Venou s Access Device (Medi-Port, Implanted Port) / Unknown 07/25/2024 11:02 AM CDT 07/25/2024 11:02 AM CDT Markus Finley MD CHEMISTRY ORDERABLES Fin al Result [facility] [address] [place] [address] * (ABNORMAL) CMP (COMPREHENSIVE METABOLIC PANEL) (07/25/2024 11:02 AM CDT) Pathologist [facility] SODIUM 134(L) 136 - 145 mmol/L 07/25/2024 11:37 AM CDT [facility] POTASSIUM 2.5(LL) 3.5 - 5.1 mmol/L 07/25/2024 11:37 AM CDT [facility] CHLORIDE 93(L) 98 - 107 mmol/L 07/25/2024 11:37 AM CDT [facility] CO2, VENOUS 22 22 - 30 mmol/L 07/25/2024 11:37 AM CDT [facility] ANION GAP 21.5(H) <18.0 mmol/L 07/25/2024 11:37 AM CDT [facility] GLUCOSE 153(H) 70 - 99 mg/dL 07/25/2024 11:37 AM CDT [facility] BUN 30(H) 5 - 18 mg/dL 07/25/2024 11:37 AM CDT [facility] CREATININE, BLOOD 3.31(H) 0.60 - 1.00 mg/dL 07/25/2024 11:37 AM CDT [facility] BUN/CREATININE RATIO 9(L) 12 - 20 ratio 07/25/2024 11:37 AM CDT [facility] TOTAL PROTEIN 8.4(H) 6.3 - 8.2 g/dL 07/25/2024 11:37 AM [facility] ALBUMIN 4.5 3.5 - 5.0 g/dL 07/25/2024 11:37 AM [facility] A/G RATIO 1.2 1.0 - 2.2 07/25/2024 11:37 AM [facility] CALCIUM 10.2 8.7 - 10.5 mg/dL 07/25/2024 11:37 AM [facility] T BILI 0.9 0.2 - 1.2 mg/dL 07/25/2024 11:37 AM [facility] SGOT (AST) 14 5 - 34 U/L 07/25/2024 11:37 AM [facility] SGPT (ALT) 45 0 - 55 U/L 07/25/2024 11:37 AM [facility] ALKALINE PHOSPHATASE 90 40 - 150 U/L 07/25/2024 11:37 AM [facility] IS THE PATIENT REQUIRED TO BE FASTING? No 07/25/2024 11:37 AM [facility] GFR, ESTIMATED 19(L) >=60 07/25/2024 11:37 AM [facility] Comment: Creatinine Clearance is the preferred criteria for selecting drug dose adjustments in renally impaired patients. ??The GFR is provided as additional pertinent clinical information. GFR is reported in mL/min/1.73 sq m. Calculation based on the Chronic Kidney Disease Epidemiology Collaboration (CKD- EPI) equation refit without adjustment for race. GFR, EST. 21(L) >=60 024 11:37 AM [facility] GFR, EST. NONAFRICAN 17(L) >=60 07/25/2024 11:37 AM [facility] Blood Sub-Q Port Venou s Access Device (Medi-Port, Implanted Port) / Unknown 07/25/2024 11:02 AM CDT 07/25/2024 11:02 AM CDT us Markus Finley MD CHEMISTRY ORDERABLES Fin al Result [facility] [address] [place] [address] * (ABNORMAL) CMP (COMPREHENSIVE METABOLIC PANEL) (07/10/2024 1:28 PM CDT) Pathologist [facility] SODIUM 133(L) 136 - 145 mmol/L 07/10/2024 1:53 PM CDT [facility] POTASSIUM 3.9 3.5 - 5.1 mmol/L 07/10/2024 1:53 PM CDT [facility] CHLORIDE 109(H) 98 - 107 mmol/L 07/10/2024 1:53 PM CDT [facility] CO2, VENOUS 18(L) 22 - 30 mmol/L 07/10/2024 1:53 PM CDT [facility] ANION GAP 9.9 <18.0 mmol/L 07/10/2024 1:53 PM CDT [facility] GLUCOSE 143(H) 70 - 99 mg/dL 07/10/2024 1:53 PM CDT [facility] BUN 4(L) 5 - 18 mg/dL 07/10/2024 1:53 PM CDT [facility] CREATININE, BLOOD 0.85 0.60 - 1.00 mg/dL 07/10/2024 1:53 PM CDT [facility] BUN/CREATININE RATIO 5(L) 12 - 20 ratio 07/10/2024 1:53 PM CDT [facility] TOTAL PROTEIN 5.8(L) 6.3 - 8.2 g/dL 07/10/2024 1:53 PM CDT [facility] ALBUMIN 3.3(L) 3.5 - 5.0 g/dL 07/10/2024 1:53 PM CDT [facility] A/G RATIO 1.3 1.0 - 2.2 07/10/2024 1:53 PM CDT [facility] CALCIUM 8.6(L) 8.7 - 10.5 mg/dL 07/10/2024 1:53 PM CDT [facility] T BILI 0.4 0.2 - 1.2 mg/dL 07/10/2024 1:53 PM CDT [facility] SGOT (AST) 20 5 - 34 U/L 07/10/2024 1:53 PM CDT [facility] SGPT (ALT) 44 0 - 55 U/L 07/10/2024 1:53 PM CDT [facility] ALKALINE PHOSPHATASE 74 40 - 150 U/L 07/10/2024 1:53 PM CDT [facility] IS THE PATIENT REQUIRED TO BE FASTING? No 07/10/2024 1:53 PM CDT [facility] GFR, ESTIMATED >60 >=60 07/10/2024 1:53 PM CDT [facility] Comment: Creatinine Clearance is the preferred criteria for selecting drug dose adjustments in renally impaired patients. ??The GFR is provided as additional pertinent clinical information. GFR is reported in mL/min/1.73 sq m. Calculation based on the Chronic Kidney Disease Epidemiology Collaboration (CKD- EPI) equation refit without adjustment for race. GFR, EST. >60 >=60 024 1:53 PM CDT [facility] GFR, EST. NONAFRICAN >60 >=60 07/10/2024 1:53 PM CDT [facility] Blood Sub-Q Port Venou s Access Device (Medi-Port, Implanted Port) / Unknown 07/10/2024 1:28 PM CDT 07/10/2024 1:28 PM CDT us Markus Finley MD CHEMISTRY ORDERABLES Fin al Result [facility] [address] [place] [address] * (ABNORMAL) CMP (COMPREHENSIVE METABOLIC PANEL) (07/05/2024 9:24 AM CDT) SODIUM 132(L) 136 - 145 mmol/L 07/05/2024 10:05 AM T [facility] POTASSIUM 2.6(LL) 3.5 - 5.1 mmol/L 07/05/2024 10:05 AM CDT [facility] CHLORIDE 107 98 - 107 mmol/L 07/05/2024 10:05 AM T [facility] CO2, VENOUS 16(L) 22 - 30 mmol/L 07/05/2024 10:05 AM [facility] ANION GAP 11.6 <18.0 mmol/L 07/05/2024 10:05 AM T [facility] GLUCOSE 193(H) 70 - 99 mg/dL 07/05/2024 10:05 AM T [facility] BUN 7 5 - 18 mg/dL 07/05/2024 10:05 AM T [facility] CREATININE, BLOOD 1.03(H) 0.60 - 1.00 mg/dL 07/05/2024 10:05 AM [facility] BUN/CREATININE RATIO 7(L) 12 - 20 ratio 07/05/2024 10:05 AM [facility] TOTAL PROTEIN 6.1(L) 6.3 - 8.2 g/dL 07/05/2024 10:05 AM T [facility] ALBUMIN 3.4(L) 3.5 - 5.0 g/dL 07/05/2024 10:05 AM [facility] A/G RATIO 1.3 1.0 - 2.2 07/05/2024 10:05 AM [facility] CALCIUM 8.7 8.7 - 10.5 mg/dL 07/05/2024 10:05 AM [facility] T BILI 0.6 0.2 - 1.2 mg/dL 07/05/2024 10:05 AM [facility] SGOT (AST) 15 5 - 34 U/L 07/05/2024 10:05 AM CDT [facility] SGPT (ALT) 46 0 - 55 U/L 07/05/2024 10:05 AM CDT [facility] ALKALINE PHOSPHATASE 61 40 - 150 U/L 07/05/2024 10:05 AM CDT [facility] IS THE PATIENT REQUIRED TO BE FASTING? No 07/05/2024 10:05 AM CDT [facility] GFR, ESTIMATED >60 >=60 07/05/2024 10:05 AM CDT [facility] Comment: Creatinine Clearance is the preferred criteria for selecting drug dose adjustments in renally impaired patients. ??The GFR is provided as additional pertinent clinical information. GFR is reported in mL/min/1.73 sq m. Calculation based on the Chronic Kidney Disease Epidemiology Collaboration (CKD- EPI) equation refit without adjustment for race. GFR, EST. >60 >=60 024 10:05 AM CDT [facility] GFR, EST. NONAFRICAN >60 >=60 07/05/2024 10:05 AM CDT [facility] Blood Venipuncture / Unknown 07/05/2024 9:24 AM CDT 07/05/2024 9:24 AM CDT us Markus Finley MD CHEMISTRY ORDERABLES Fin al Result [facility] [address] [place] [address] * (ABNORMAL) CMP (COMPREHENSIVE METABOLIC PANEL) (07/04/2024 10:53 AM CDT) SODIUM 128(L) 136 - 145 mmol/L 07/04/2024 11:41 AM CDT [facility] POTASSIUM 2.7(LL) 3.5 - 5.1 mmol/L 07/04/2024 11:41 AM CDT [facility] CHLORIDE 102 98 - 107 mmol/L 07/04/2024 11:41 AM [facility] CO2, VENOUS 17(L) 22 - 30 mmol/L 07/04/2024 11:41 AM [facility] ANION GAP 11.7 <18.0 mmol/L 07/04/2024 11:41 AM [facility] GLUCOSE 150(H) 70 - 99 mg/dL 07/04/2024 11:41 AM [facility] BUN 11 5 - 18 mg/dL 07/04/2024 11:41 AM [facility] CREATININE, BLOOD 1.00 0.60 - 1.00 mg/dL 07/04/2024 11:41 AM [facility] BUN/CREATININE RATIO 11(L) 12 - 20 ratio 07/04/2024 11:41 AM [facility] TOTAL PROTEIN 6.5 6.3 - 8.2 g/dL 07/04/2024 11:41 AM [facility] ALBUMIN 3.6 3.5 - 5.0 g/dL 07/04/2024 11:41 AM [facility] A/G RATIO 1.2 1.0 - 2.2 07/04/2024 11:41 AM [facility] CALCIUM 8.8 8.7 - 10.5 mg/dL 07/04/2024 11:41 AM [facility] T BILI 0.7 0.2 - 1.2 mg/dL 07/04/2024 11:41 AM [facility] SGOT (AST) 19 5 - 34 U/L 07/04/2024 11:41 AM [facility] SGPT (ALT) 50 0 - 55 U/L 07/04/2024 11:41 AM [facility] ALKALINE PHOSPHATASE 67 40 - 150 U/L 07/04/2024 11:41 AM [facility] IS THE PATIENT REQUIRED TO BE FASTING? No 07/04/2024 11:41 AM CDT [facility] GFR, ESTIMATED >60 >=60 07/04/2024 11:41 AM CDT [facility] Comment: Creatinine Clearance is the preferred criteria for selecting drug dose adjustments in renally impaired patients. ??The GFR is provided as additional pertinent clinical information. GFR is reported in mL/min/1.73 sq m. Calculation based on the Chronic Kidney Disease Epidemiology Collaboration (CKD- EPI) equation refit without adjustment for race. GFR, EST. >60 >=60 024 11:41 AM CDT [facility] GFR, EST. NONAFRICAN >60 >=60 07/04/2024 11:41 AM CDT [facility] Blood Sub-Q Port Venou s Access Device (Medi-Port, Implanted Port) / Unknown 07/04/2024 10:53 AM CDT 07/04/2024 10:54 AM CDT Markus Finley MD CHEMISTRY ORDERABLES Fin al Result [facility] [address] [place] [address] * (ABNORMAL) CMP (COMPREHENSIVE METABOLIC PANEL) (06/12/2024 2:14 PM CDT) SODIUM 140 136 - 145 mmol/L 06/12/2024 4:04 PM CDT [facility] POTASSIUM 3.5 3.5 - 5.1 mmol/L 06/12/2024 4:04 PM CDT [facility] CHLORIDE 109(H) 98 - 107 mmol/L 06/12/2024 4:04 PM CDT [facility] CO2, VENOUS 23 22 - 30 mmol/L 06/12/2024 4:04 PM CDT [facility] ANION GAP 11.5 <18.0 mmol/L 06/12/2024 4:04 PM CDT [facility] GLUCOSE 136(H) 70 - 99 mg/dL 06/12/2024 4:04 PM T [facility] BUN 12 5 - 18 mg/dL 06/12/2024 4:04 PM [facility] CREATININE, BLOOD 0.73 0.60 - 1.00 mg/dL 06/12/2024 4:04 PM [facility] BUN/CREATININE RATIO 16 12 - 20 ratio 06/12/2024 4:04 PM [facility] TOTAL PROTEIN 6.4 6.3 - 8.2 g/dL 06/12/2024 4:04 PM [facility] ALBUMIN 3.6 3.5 - 5.0 g/dL 06/12/2024 4:04 PM [facility] A/G RATIO 1.3 1.0 - 2.2 06/12/2024 4:04 PM [facility] CALCIUM 9.1 8.7 - 10.5 mg/dL 06/12/2024 4:04 PM T [facility] T BILI 0.2 0.2 - 1.2 mg/dL 06/12/2024 4:04 PM [facility] SGOT (AST) 20 5 - 34 U/L 06/12/2024 4:04 PM [facility] SGPT (ALT) 37 0 - 55 U/L 06/12/2024 4:04 PM [facility] ALKALINE PHOSPHATASE 59 40 - 150 U/L 06/12/2024 4:04 PM [facility] IS THE PATIENT REQUIRED TO BE FASTING? No 06/12/2024 4:04 PM [facility] GFR, ESTIMATED >60 >=60 06/12/2024 4:04 PM [facility] Comment: Creatinine Clearance is the preferred criteria for selecting drug dose adjustments in renally impaired patients. ??The GFR is provided as additional pertinent clinical information. GFR is reported in mL/min/1.73 sq m. Calculation based on the Chronic Kidney Disease Epidemiology Collaboration (CKD- EPI) equation refit without adjustment for race. GFR, EST. >60 >=60 024 4:04 PM CDT [facility] GFR, EST. NONAFRICAN >60 >=60 06/12/2024 4:04 PM CDT [facility] Blood Sub-Q Port Venou s Access Device (Medi-Port, Implanted Port) / Unknown 06/12/2024 2:14 PM CDT 06/12/2024 2:14 PM CDT Markus Finley MD CHEMISTRY ORDERABLES Fin al Result Performing Organization Address City/[facility]/ZIP Co de Phone Number [facility] [address] [place] [address] * COMPLETE BLOOD COUNT (CBC) WITH DIFF [...] mcg/dL 05/01/2024 4:1 3 PM CDT [facility] Blood Venipuncture / Unknown 05/01/2024 2:38 PM CDT 05/01/2024 2:38 PM CDT Narrative [facility] - 05/01/2024 4:13 PM CDT AM: ??4 TO 19 mcg/dL PM: ??Approx. Half of AM Value ?? us Markus Finley MD CHEMISTRY ORDERABLES Fin al Result [facility] [place] [address] documented in this encounter Visit Diagnoses Diagnosis [...] mg documented in this encounter Care Teams Log Handler Relationship Specialty Start Date End Date Pritesh Chu MD [address] [address] PCP - General Family Medicine 04/18/24 Markus Finley MD [address] [place] [address] Consulting Physician Medical Oncology 04/18/24 documented as of this encounter
--- OUTSIDE RECORDS SUMMARY | 2024-10-27 03:41 | XMS_ITS | Encounter Summary ---
Author Organization [facility] Address [address] [place] [address] Phone Care Team Providers Care Glass Cutter Hand Name Role Phone Pritesh Chu MD Primary Care Provider [phone] Markus Finley MD Unavailable [phone] Reason for Visit * Episode Based Medications (Routine) - Closed Specialty Diagnoses / Procedures Referred By Contross t Referred To Contact Diagnoses Metastatic melanoma (HCC) Markus Finley MD [address] [place] [address] Phone: tel: fax: [facility] On[facility] [address] [place] [address] Phone: tel: fax: Referral ID Status Reason Start Date Expiration Date Visits Re quested Visits Authorized [id number] Closed 04/19/2024 1 30 Encounter Details Date Type Department Care Team (Late st Contact Info) Description 07/17/2024 1:30 PM CDT Clinical Support [facility] Oncology Services [address] [place] [address] Markus Finley MD [address] [place] [address] Metastatic melanoma (HCC) (Primary Dx) Discharge Disposition: Discharged to home or Selfcare Social History Tobacco Use Types Packs/Day Years Used Date Smoking Tobacco: Former Cigarettes 0.5 8.5 S tarted: 04/18/2016 Smokeless Tobacco: Never Alcohol Use Standard Drinks/Week Comments Yes 0 (1 standard drink = 0.6 oz pur e alcohol) [facility] Utilities Answer Date Recorded In [...] often do you attend chur ch or oriental orthodox services? Never 06/27/2024 Do you belong [...] and heating? Not hard at all 06/27/2024 [facility] [place] of Occupat ional Health - Occupational Stress [...] infusion. VS obtained. Reviewed labs completed at [place] yesterday; OKfor treatment. No diarrhea for at least 3 days. Per DAVID DENNIS for treatment. Port accessed x1 attempt; flushed easily with no blood return. Medication given per MD order and pt tolerated well. PET scan ordered sent to [facility] and referral updated in [facility]. Port flushed with NS and heparin per protocol and port needle removed. Port site covered with bandaid. Patient left tx area in stable conditionwith no further requests. documented in this encounter Plan of Treatment Upcoming Encounters Date Type Department Care Team (Late st Contact Info) Description 11/15/2024 1:00 PM CARE CONSULTANT [facility] [address] [place] [address] Markus Finley MD [address] [place] [address] 11/15/2024 2:00 PM CARE CONSULTANT [facility] 1 [facility] [place] [address] Markus Finley MD [address] [place] [address] Discharge Disposition: Discharged to home or Selfcare [...] mg documented in this encounter Care Teams Glass Cutter Hand Relationship Specialty Start Date End Date Pritesh Chu MD [address] [place] [address] PCP - General Family Medicine 04/18/24 Markus Finley MD [address] [place] [address] Consulting Physician Medical Oncology 04/18/24 documented as of this encounter
--- OUTSIDE RECORDS SUMMARY | 2024-10-27 03:41 | XMS_ITS | Encounter Summary ---
Author Organization [facility] Address [address] [facility] [place] [address] Phone Care Team Providers Care Bank Teller Name Role Phone Pritesh Chu MD Primary Care Provider [phone] Markus Finley MD Unavailable [phone] Reason for Visit * Episode Based Medications (Routine) - Closed Specialty Diagnoses / Procedures Referred By Contross t Referred To Contact Diagnoses Metastatic melanoma (HCC) Markus Finley MD [address] [place] [address] Phone: tel: fax: [facility] Oncology Services [address] [place] [address] Phone: tel: fax: Referral ID Status Reason Start Date Expiration Date Visits Re quested Visits Authorized [id number] Closed 04/19/2024 1 30 Encounter Details Date Type Department Care Team (Late st Contact Info) Description 07/03/2024 9:30 AM CDT Clinical Support [facility] Oncology Services [address] [place] [id number] Markus Finley MD [address] [place] [address] Metastatic melanoma (HCC) (Primary Dx); Diarrhea due to drug; Functional diarrhea; Hypotension due to drugs; Potassium (K) deficiency Discharge Disposition: Discharged to home or Selfcare Social History Tobacco Use Types Packs/Day Years Used Date Smoking Tobacco: Former Cigarettes 0.5 8.5 S tarted: 04/18/2016 Smokeless Tobacco: Never Alcohol Use Standard Drinks/Week Comments Yes 0 (1 standard drink = 0.6 oz pur e alcohol) [facility] Utilities Answer Date Recorded In the past 12 months has e [employer], gas, oil, or water [employer] threatened to shut off services in [...] and heating? Not hard at all 06/27/2024 [facility] [place] [facility] Occupat ional Health - Occupational Stress [...] in the past 12 m [facility], were you homeless or living in a detention (including now)? No 06/27/2024 Comments No Sex [...] st Contact Info) Description 11/15/2024 1:00 PM ETCH OPERATOR SEMICONDUCTOR WAFERS [facility] [address] [place] [address] Markus Finley MD [address] [place] [address] 11/15/2024 2:00 PM ETCH OPERATOR SEMICONDUCTOR WAFERS [facility]ment [facility] [address] [place] [id number] Markus Finley MD [address] [place] [address] Discharge Disposition: Discharged to home or Selfcare [...] 10.0 % 07/03/2024 12:[address] [facility] NEUTROPHILS % 72.0 47.0 - 73.0 % 07/03/2024 12:[address] [facility] LYMPHOCYTES % 16.0(L) 18.0 - 42.0 % 07/03/2024 12:01 PM CDT [facility] MONOCYTES % 5.0 4.0 - 12.0 % 07/03/2024 12:01 PM CDT [facility] METAMYELOCYTES % 1.0(H) <=0.0 % 07/03/20 12:01 PM CDT [facility] NEUTROPHILS ABSOLUTE 14.67(H) 1.60 - 7.70 10(3)/mcL 07/03/2024 12:01 PM CDT [facility] LYMPHOCYTES ABSOLUTE 3.01 1.30 - 3.20 10(3)/mcL 07/03/2024 12:01 PM CDT [facility] MONOCYTES ABSOLUTE 0.94 0.20 - 1.00 10(3)/mcL 07/03/2024 12:01 PM CDT [facility] RBC MORPHOLOGY CONSISTENT WITH INDICES Yes 07/03/2024 12:01 PM CDT [facility] POLYCHROMASIA 1+ 07/03/2024 12:01 PM CDT [facility] LARGE PLATELETS 1+ 12:01 PM CDT [facility] WBC MORPH STATUS Normal 07/03/20 12:01 PM CDT [facility] Blood Sub-Q Port Venou s Access Device (Medi-Port, Implanted Port) / Unknown 07/03/2024 10:29 AM CDT 07/03/2024 10:29 AM CDT us Markus Finley MD HEMATOLOGY ORDERABLES Fi nal Result [facility] [address] [place] [address] * (ABNORMAL) CBC WITH AUTO DIFFERENTIAL (07/03/2024 10:29 AM CDT) WBC 18.81(H) 4.00 - 12.00 10(3)/mcL 07/03/2024 12:01 PM CDT [facility] RBC 6.30(H) 3.80 - 5.30 10(6)/mcL 07/03/2024 12:01 PM CDT [facility] HEMOGLOBIN (HGB) 18.5(H) 12.0 - 15.8 g/dL 07/03/2024 12:01 PM CDT [facility] HEMATOCRIT (HCT) 52.1(H) 36.0 - 47.0 % 07/03/2024 12:01 PM CDT [facility] MCV 82.7 82.0 - 96.0 fL 07/03/2024 12:01 PM CDT [facility] MCH 29.4 26.0 - 34.0 pg 07/03/2024 12:01 PM CDT [facility] MCHC 35.5 31.0 - 36.0 g/dL 07/03/2024 12:01 PM CDT [facility] PLATELET COUNT 436 140 - 440 10(3)/[facility] 07/03/2024 12:01 PM CDT [facility] RDW 12.8 11.8 - 15.5 % 07/03/2024 12:01 PM CDT [facility] MPV 10.2 9.7 - 12.4 fL 07/03/2024 12:01 PM CDT [facility] NRBC PER 100 WBC 0 07/03/2024 12:01 PM CDT [facility] RESULTS ARE CONSISTENT WITH PERIPHERAL SMEAR REVIEW Yes 07/03/2024 12:01 PM CDT [facility] Blood Sub-Q Port Venou s Access Device (Medi-Port, Implanted Port) / Unknown 07/03/2024 10:29 AM CDT 07/03/2024 10:29 AM CDT us Markus Finley MD HEMATOLOGY ORDERABLES Fi nal Result [facility] [address] [place] [address] * ADRENOCORTICOTROPIC HORMONE, P, MILLER ACTH (07/03/2024 10:29 AM CDT) ADRENOCORTICOTROPIC HORMONE (ACTH) 8.7 pg/mL 07/04/2024 12:18 PM CDT [facility] Comment: REFERENCE VALUE 7.2-63 (a.m. collection) Test Performed by: [place] [address] Computer Equipment Installer: Ernie Page Ph.D.; CLIA# [id number] Blood Sub-Q Port Venou s Access Device (Medi-Port, Implanted Port) / Unknown 07/03/2024 10:29 AM CDT 07/03/2024 10:29 AM CDT Markus Finley MD LAB SEND OUTS Final Re sult [facility] US * (ABNORMAL) THYROXINE (T4) FREE (07/03/2024 10:29 AM CDT) Pathologist [facility] T4 FREE <0.4(L) 0.7 - 1.9 ng/dL 07/03/2024 11:55 AM CDT [facility] Blood Sub-Q Port Venou s Access Device (Medi-Port, Implanted Port) / Unknown 07/03/2024 10:29 AM CDT 07/03/2024 10:29 AM CDT Markus Finley MD CHEMISTRY ORDERABLES Fin al Result [facility] [address] [place] [address] * CORTISOL (07/03/2024 10:29 AM CDT) CORTISOL 18.9 mcg/dL 07/03/2024 11:32 AM CDT [facility] Blood Sub-Q Port Venou s Access Device (Medi-Port, Implanted Port) / Unknown 07/03/2024 10:29 AM CDT 07/03/2024 10:29 AM CDT Narrative [facility] - 07/03/2024 11:32 AM CDT AM: ??4 TO 19 mcg/dL PM: ??Approx. Half of AM Value ?? Markus Finley MD CHEMISTRY ORDERABLES Fin al Result Performing Organization Address City/[facility]/ZIP Co de Phone Number [facility] [address] [place] [address] * (ABNORMAL) TRIIODOTHYRININE (T3) FREE (07/03/2024 10:29 AM CDT) FREE T3 <1.5(L) 1.6 - 3.9 pg/mL 07/03/2024 4:27 PM CDT [facility] Blood Sub-Q Port Venou s Access Device (Medi-Port, Implanted Port) / Unknown 07/03/2024 10:29 AM CDT 07/03/2024 10:29 AM CDT Markus Finley MD CHEMISTRY ORDERABLES Fin al Result [facility] [address] [place] [address], * (ABNORMAL) THYROID STIMULATING HORMONE (TSH) (07/03/2024 10:29 AM CDT) TSH 42.415(H) 0.300 - 5.000 mIU/L 07/03/2024 11:32 AM CDT [facility] Blood Sub-Q Port Venou s Access Device (Medi-Port, Implanted Port) / Unknown 07/03/2024 10:29 AM CDT 07/03/2024 10:29 AM CDT us Markus Finley MD CHEMISTRY ORDERABLES Jacob al Result [facility] [address] [place] [address] * (ABNORMAL) CMP (COMPREHENSIVE METABOLIC PANEL) (07/03/2024 10:29 AM CDT) SODIUM 125(L) 136 - 145 mmol/L 07/03/2024 11:17 AM CDT [facility] POTASSIUM 3.0(L) 3.5 - 5.1 mmol/L 07/03/2024 11:17 AM CDT [facility] CHLORIDE 99 98 - 107 mmol/L 07/03/2024 11:17 AM CDT [facility] CO2, VENOUS 12(L) 22 - 30 mmol/L 07/03/2024 11:17 AM CDT [facility] ANION GAP 17.0 <18.0 mmol/L 07/03/2024 11:17 AM CDT [facility] GLUCOSE 150(H) 70 - 99 mg/dL 07/03/2024 11:17 AM CDT [facility] BUN 23(H) 5 - 18 mg/dL 07/03/2024 11:17 AM CDT [facility] CREATININE, BLOOD 1.55(H) 0.60 - 1.00 mg/dL 07/03/2024 11:17 AM CDT [facility] BUN/CREATININE RATIO 15 12 - 20 ratio 07/03/2024 11:17 AM CDT [facility] TOTAL PROTEIN 7.7 6.3 - 8.2 g/dL 07/03/2024 11:17 AM CDT [facility] ALBUMIN 4.2 3.5 - 5.0 g/dL 07/03/2024 11:17 AM CDT [facility] A/G RATIO 1.2 1.0 - 2.2 07/03/2024 11:17 AM CDT [facility] CALCIUM 9.4 8.7 - 10.5 mg/dL 07/03/2024 11:17 AM CDT [facility] T BILI 0.9 0.2 - 1.2 mg/dL 07/03/2024 11:17 AM CDT [facility] SGOT (AST) 28 5 - 34 U/L 07/03/2024 11:17 AM CDT [facility] SGPT (ALT) 64(H) 0 - 55 U/L 07/03/2024 11:17 AM CDT [facility] ALKALINE PHOSPHATASE 79 40 - 150 U/L 07/03/2024 11:17 AM CDT [facility] IS THE PATIENT REQUIRED TO BE FASTING? No 07/03/2024 11:17 AM CDT [facility] GFR, ESTIMATED 48(L) >=60 07/03/2024 11:17 AM CDT [facility] [...] EST. 50(L) >=60 024 11:17 AM CDT [facility] GFR, EST. NONAFRICAN 41(L) >=60 07/03/2024 11:17 AM CDT [facility] Blood Sub-Q Port Venou s Access Device (Medi-Port, Implanted Port) / Unknown 07/03/2024 10:29 AM CDT 07/03/2024 10:29 AM CDT us Markus Finley MD CHEMISTRY ORDERABLES Fin al Result [facility] [address] [place] [address] documented in this encounter Visit Diagnoses Diagnosis [...] mEq documented in this encounter Care Teams Bank Teller Relationship Specialty Start Date End Date Pritesh Chu MD [address] [address] PCP - General Family Medicine 04/18/24 Markus Finley MD [address] [place] [address] Consulting Physician Medical Oncology 04/18/24 documented as of this encounter
--- OUTSIDE RECORDS SUMMARY | 2024-10-27 03:41 | XMS_ITS | Encounter Summary ---
Author Organization [facility] Address [address] [facility] [place] [address] Phone Care Team Providers Care Etl Lead Name Role Phone Pritesh Chu MD Primary Care Provider [phone] Markus Finley MD Unavailable [phone] Encounter Details Date Type Department Care Team (Late st Contact Info) Description 07/05/2024 9:00 AM CDT Clinical Support [facility] On[facility] Services [address] [place] [phone] Jenn Medellin [place], PAC [address] [place] [address] Potassium (K) deficiency (Primary Dx); Metastatic melanoma (HCC) Discharge Disposition: Discharged to home or Selfcare Social History Tobacco Use Types Packs/Day Years Used Date Smoking Tobacco: Former Cigarettes 0.5 8.5 S tarted: 04/18/2016 Smokeless Tobacco: Never Alcohol Use Standard Drinks/Week Comments Yes 0 (1 standard drink = 0.6 oz pur e alcohol) [facility] Utilities Answer Date Recorded In the past 12 months has [employer], oil, or [employer] threatened to shut off services in your [...] and heating? Not hard at all 06/27/2024 [facility] Answer Date [...] any time in the past 12 m [facility], were you homeless or living [...] st Contact Info) Description 11/15/2024 1:00 PM COMMERCIAL INSULATOR Lab [facility] [address] [place] [address] Markus Finley MD [address] [place] [address] 11/15/2024 2:00 PM COMMERCIAL INSULATOR Appointment [facility] [address] [place] [address] Markus Finley MD [address] [place], [place] [id number] Discharge Disposition: Discharged to home or Selfcare [...] Result [facility] [place] [address] * (ABNORMAL) CMP (COMPREHENSIVE METABOLIC PANEL) (07/05/2024 9:24 AM CDT) SODIUM 132(L) 136 - 145 mmol/L 07/05/2024 10:05 AM CDT [facility] POTASSIUM 2.6(LL) 3.5 - 5.1 mmol/L 07/05/2024 10:05 AM CDT [facility] CHLORIDE 107 98 - 107 mmol/L 07/05/2024 10:05 AM T [facility] CO2, VENOUS 16(L) 22 - 30 mmol/L 07/05/2024 10:05 AM T [facility] ANION GAP 11.6 <18.0 mmol/L 07/05/2024 10:05 AM T [facility] GLUCOSE 193(H) 70 - 99 mg/dL 07/05/2024 10:05 AM CDT [facility] BUN 7 5 - 18 mg/dL 07/05/2024 10:05 AM [facility] CREATININE, BLOOD 1.03(H) 0.60 - 1.00 mg/dL 07/05/2024 10:05 AM [facility] BUN/CREATININE RATIO 7(L) 12 - 20 ratio 07/05/2024 10:05 AM [facility] TOTAL PROTEIN 6.1(L) 6.3 - 8.2 g/dL 07/05/2024 10:05 AM T [facility] ALBUMIN 3.4(L) 3.5 - 5.0 g/dL 07/05/2024 10:05 AM [facility] A/G RATIO 1.3 1.0 - 2.2 07/05/2024 10:05 AM T [facility] CALCIUM 8.7 8.7 - 10.5 mg/dL 07/05/2024 10:05 AM T [facility] T BILI 0.6 0.2 - 1.2 mg/dL 07/05/2024 10:05 AM CDT [facility] SGOT (AST) 15 5 - 34 U/L 07/05/2024 10:05 AM CDT [facility] SGPT (ALT) 46 0 - 55 U/L 07/05/2024 10:05 AM CDT [facility] ALKALINE PHOSPHATASE 61 40 - 150 U/L 07/05/2024 10:05 AM CDT [facility] IS THE PATIENT REQUIRED TO BE FASTING? No 07/05/2024 10:05 AM CDT [facility] GFR, ESTIMATED >60 >=60 07/05/2024 10:05 AM CDT [facility] Comment: Creatinine Clearance is the preferred criteria for selecting drug dose adjustments in renally impaired patients. ??The GFR is provided as additional pertinent clinical information. GFR is reported in mL/min/1.73 sq m. Calculation based on the Chronic Kidney Disease Epidemiology Collaboration (CKD- EPI) equation refit without adjustment for race. GFR, EST. >60 >=60 024 10:05 AM CDT [facility] GFR, EST. NONAFRICAN >60 >=60 07/05/2024 10:05 AM CDT [facility] Blood Venipuncture / Unknown 07/05/2024 9:24 AM CDT 07/05/2024 9:24 AM CDT Markus Finley MD CHEMISTRY ORDERABLES Fin al Result [facility] [address] [place] [address] documented in this encounter Visit Diagnoses Diagnosis [...] mEq documented in this encounter Care Teams Etl Lead Relationship Specialty Start Date End Date Pritesh Chu MD [address] [address] PCP - General Family Medicine 04/18/24 Markus Finley MD [address] [place] [address] Consulting Physician Medical Oncology 04/18/24 documented as of this encounter
--- OUTSIDE RECORDS SUMMARY | 2024-10-27 03:41 | XMS_ITS | Encounter Summary ---
Author Organization [facility] Address [address] [place] [address] Phone Care Team Providers Care Service Station Operator Name Role Phone Kellen Chu MD Primary Care Provider [phone] Markus Finley MD Unavailable [phone] Reason for Visit * Auth/Cert (Routine) Specialty Diagnoses / Procedures Referred By Delbert t Referred To Contact Diagnoses Sepsis (HCC) Dehydration sepsis Bernardo Petty MD [address] [place] [address] Phone: tel: fax: Referral ID Status Reason Start Date Expiration Date Visits Re quested Visits Authorized [id number] 1 1 Encounter Details Date Type Department Care Team (Late st Contact Info) Description 06/27/2024 8:22 AM CDT - 06/30/2024 6:40 PM CDT Hospital Encounter [facility] Med Surg [address] [place] [address] [phone] Vin Petty Rajnikant K, MD [address] [place] [address] Brayan Petty MD [address] [place] [address] Fever of unknown origin Discharge Disposition: Discharged to home or Selfcare Social History Tobacco Use Types Packs/Day Years Used Date Smoking Tobacco: Former Cigarettes 0.5 8.5 S tarted: 04/18/2016 Smokeless Tobacco: Never Alcohol Use Standard Drinks/Week Comments Yes 0 (1 standard drink = 0.6 oz pur e alcohol) [facility] Utilities Answer Date [...] often do you attend chur ch or quaker services? Never 06/27/2024 Do you belong to [...] and heating? Not hard at all 06/27/2024 [facility] [place] of Occupat ional Health - Occupational Stress [...] MD - 06/30/2024 11:05 AM CDT [facility] DISCHARGE SUMMARY Name: Dayanara Hilton Age: [...] found for: HGBA1C No results found for: [id number] No results found for: CPK , CPKI , CKMB , CKMBNI , CKMBPOCT , CKMBRELINDX , TROPONINI , POCTRP No results found for: FERRITIN No results found for: FOLATE No results found for: PHARTERIAL , PO2ART , [id number] , CO2ART , O2ART Lab Results Component [...] Thank you very much for allowing the [facility] Adult Hospitalist Service to participate in the [...] PM CDT Request for Documentation Clarification [facility] Dayanara Hilton ; VISIT [id number] Query Response Sent: 07/06/24 11:00 CDT From: [...] foot and GERD who was transferred from [facility] as a direct admission for [...] cefepime, and was subsequently transferred here to [facility] for further management. * Drugs/Treatment: Maxipime; Vanco * Signs/Symptoms: SIRS Criteria DATE: 06/27 WBC: 6.20 HR: 130 RR: 20 TEMP: 100.2 (06/28) * Brayan Petty MD - 06/29/2024 9:40 PM CDT [facility] PROGRESS NOTE Dayanara Hilton is [...] results found for: PHARTERIAL , PO2ART , [id number] , CO2ART , O2ART Lab Results Component [...] LACTICA 0.9 06/29/2024 No results found for: [id number] No results found for: FERRITIN No results found for: GLUCOSEPOCT EKG: No results found. Imaging: No results found. By: Brayan Petty MD, 06/29/2024 9:40 PM CDT * Brayan Petty MD - 06/28/2024 10:12 PM CDT [facility] PROGRESS NOTE Dayanara Hilton is [...] results found for: PHARTERIAL , PO2ART , [id number] , CO2ART , O2ART Lab Results Component [...] LACTICA 1.5 06/27/2024 No results found for: [id number] No results found for: FERRITIN No results found for: GLUCOSEPOCT EKG: No results found. Imaging: No results found. By: Brayan Petty MD, 06/28/2024 10:14 PM CDT documented in this encounter H&P Notes * Debo Keenan APRN, ENGLISH LANGUAGE LEARNER TUTOR - 06/27/2024 11:52 AM CDT HOSPITALIST ADMISSION HISTORY & PHYSICAL EXAM PATIENT NAME: Dayanara Hilton, : 2000, MR#[id number] CHIEF COMPLAINT Fever, vomiting HPI Dayanara Hilton is a 24 y.o. female with a PMHx of melanoma of the left foot and GERD who was transferred from [facility] as a direct admission for [...] Patient presented to the emergency room at [facility] for evaluation last night. She [...] cefepime, and was subsequently transferred here to [facility] for further management. HOME MEDICATIONS: Prior [...] HENT: Head: Normocephalic and atraumatic. Mouth/Throat: Lips: [place]. Mouth: Mucous membranes are moist. Eyes: General: [...] results found for: PHARTERIAL , CO2ART , VRM3MUN , PO2ART , O2ART Mg: No results [...] with patient and/or family and/or Power of Epilepsy Physician approximately 16 minutes. Discussed CPR/Intubation/Treatment Goals/Quality of [...] examine this patient. I agree with the PULMONOLOGIST/PA???s findings and defer to the attached note. [...] started having some weakness in went to [facility]. She did have a temperature [...] Pain and Promote Comfort Flowsheets (Taken 06/29/2024 6171) Pain Management Interventions: care clustered quiet environment facilitated relaxation techniques promoted Intervention: Provide Person-Centered Care Flowsheets (Taken 06/29/2024 6707) Trust Relationship/Rapport: care explained choices provided questions [...] periods encouraged * Interdisciplinary - Nell Lazar, [facility] - 06/29/2024 10:46 AM CDT PHARMACY [...] time loading dose.- this was given at [facility] prior to transfer Vancomycin continued [...] you for this consult. For questions call [facility] Pharmacy [phone] Lizette Snow PharmD, BCPS 06/29/2024, 10:46 AM [...] Orlando GIRALDO. * Interdisciplinary - Nell Lazar [facility] - 06/28/2024 2:42 PM CDT PHARMACY [...] time loading dose.- this was given at [facility] prior to transfer Vancomycin continued [...] you for this consult. For questions call [facility] Pharmacy [phone] [facility] 06/28/2024, 2:42 PM CDT Addendum: Insight [...] smartphone television * Interdisciplinary - Dunia Lorenzo [facility] - 06/27/2024 1:17 PM CDT PHARMACY PROGRESS NOTE: Vancomycin DAY # 1 Consulting Physician/Service: Debo Keenan APRN, ENGLISH LANGUAGE LEARNER TUTOR Admit Date: 06/27/2024 Patient Name: Dayanara Hilton Age: 24 y.o. Sex: female Height: 5' 6 (167.6 cm) Weight: 290 lb 11.2 oz (131.9 kg) Initial Antibiotic Indication: Debo Keenan, PULMONOLOGIST, ENGLISH LANGUAGE LEARNER TUTOR Special population: None Current ABX List Includes: [...] time loading dose.- this was given at [facility] prior to transfer Vancomycin continued [...] you for this consult. For questions call [facility] Pharmacy [phone] DUNIA LORENZO RPH 06/27/2024, 1:18 PM CDT [...] CDT Admitted pt as direct admit from [facility] N/V/D. A/O. Resp unlabored. RA. SL patent. Has PAC, not accessed. See flow sheet for complete assessment. Up at harish. Orders pending. Rounding continues. documented in this encounter Plan of Treatment Upcoming Encounters Date Type Department Care Team (Late st Contact Info) Description 11/15/2024 1:00 PM GROUND SUPPORT EQUIPMENT ASSEMBLER Lab [facility] [address] [place] [address] Markus Finley MD [address] [place] [address] 11/15/2024 2:00 PM GROUND SUPPORT EQUIPMENT ASSEMBLER Appointment [facility] MRI [address] [place] [address] Markus Finley MD [address] [place] [address] Discharge Disposition: Discharged to home or Selfcare [...] Mcdonald MD CHEMISTRY ORDERABLES Fin al Result [facility] [address] [place] [address] * (ABNORMAL) Manual Differential (06/30/2024 5:35 AM CDT) Only the most recent of4 resultswithin the time period is included. BANDS % 12.0(H) 0.0 - 10.0 % 06/30/2024 6:15 AM CDT [facility] NEUTROPHILS % 59.0 47.0 - 73.0 % 06/30/2024 6:15 AM CDT [facility] LYMPHOCYTES % 20.0 18.0 - 42.0 % 06/30/2024 6:15 AM CDT [facility] MONOCYTES % 9.0 4.0 - 12.0 % 06/30/2024 6:15 AM CDT [facility] NEUTROPHILS ABSOLUTE 7.15 1.60 - 7.70 10(3)/mcL 06/30/2024 6:15 AM CDT [facility] LYMPHOCYTES ABSOLUTE 2.01 1.30 - 3.20 10(3)/mcL 06/30/2024 6:15 AM CDT [facility] MONOCYTES ABSOLUTE 0.91 0.20 - 1.00 10(3)/mcL 06/30/2024 6:15 AM CDT [facility] WBC MORPH STATUS Normal 06/30/20 6:15 AM CDT [facility] RBC MORPH STATUS Normal 06/30/20 6:15 AM CDT [facility] PLATELET STATUS Normal 6:15 AM CDT [facility] Blood Venipuncture / Unknown 06/30/2024 5:35 AM CDT 06/30/2024 5:39 AM CDT us Brayan Kang MD HEMATOLOGY ORDERABLES Final R esult [facility] [address] [place] [address] * (ABNORMAL) CBC with Auto Differential (06/30/2024 5:35 AM CDT) Only the most recent of4 resultswithin the time period is included. WBC 10.07 4.00 - 12.00 10(3)/mcL 06/30/2024 6:15 AM CDT [facility] RBC 5.49(H) 3.80 - 5.30 10(6)/mcL 06/30/2024 6:15 AM CDT [facility] HEMOGLOBIN (HGB) 16.2(H) 12.0 - 15.8 g/dL 06/30/2024 6:15 AM CDT [facility] HEMATOCRIT (HCT) 47.1(H) 36.0 - 47.0 % 06/30/2024 6:15 AM CDT [facility] MCV 85.8 82.0 - 96.0 fL 06/30/2024 6:15 AM CDT [facility] MCH 29.5 26.0 - 34.0 pg 06/30/2024 6:15 AM CDT [facility] MCHC 34.4 31.0 - 36.0 g/dL 06/30/2024 6:15 AM CDT [facility] PLATELET COUNT 307 140 - 440 10(3)/mcL 06/30/2024 6:15 AM CDT [facility] RDW 12.9 11.8 - 15.5 % 06/30/2024 6:15 AM CDT [facility] MPV 9.5(L) 9.7 - 12.4 fL 06/30/2024 6:15 AM CDT [facility] NRBC PER 100 WBC 0 06/30/2024 6:15 AM CDT [facility] RESULTS ARE CONSISTENT WITH PERIPHERAL SMEAR REVIEW Yes 06/30/2024 6:15 AM CDT [facility] Blood Venipuncture / Unknown 06/30/2024 5:35 AM CDT 06/30/2024 5:39 AM CDT us Brayan Kang MD HEMATOLOGY ORDERABLES Final R esult [facility] [address] [place] [address] * (ABNORMAL) BMP with Ca, Total (06/30/2024 5:35 AM CDT) Only the most recent of3 resultswithin the time period is included. SODIUM 137 136 - 145 mmol/L 06/30/2024 6:05 AM CDT [facility] POTASSIUM 3.6 3.5 - 5.1 mmol/L 06/30/2024 6:05 AM CDT [facility] CHLORIDE 110(H) 98 - 107 mmol/L 06/30/2024 6:05 AM CDT [facility] CO2, VENOUS 15(L) 22 - 30 mmol/L 06/30/2024 6:05 AM CDT [facility] ANION GAP 15.6 <18.0 mmol/L 06/30/2024 6:05 AM CDT [facility] GLUCOSE 82 70 - 99 mg/dL 06/30/2024 6:05 AM CDT [facility] BUN 7 5 - 18 mg/dL 06/30/2024 6:05 AM CDT [facility] CREATININE, BLOOD 0.87 0.60 - 1.00 mg/dL 06/30/2024 6:05 AM CDT [facility] BUN/CREATININE RATIO 8(L) 12 - 20 ratio 06/30/2024 6:05 AM T [facility] CALCIUM 9.6 8.7 - 10.5 mg/dL 06/30/2024 6:05 AM CDT [facility] GFR, ESTIMATED >60 >=60 06/30/2024 6:05 AM CDT [facility] Comment: Creatinine Clearance is the preferred criteria for selecting drug dose adjustments in renally impaired patients. ??The GFR is provided as additional pertinent clinical information. GFR is reported in mL/min/1.73 sq m. Calculation based on the Chronic Kidney Disease Epidemiology Collaboration (CKD- EPI) equation refit without adjustment for race. GFR, EST. >60 >=60 024 6:05 AM CDT [facility] GFR, EST. NONAFRICAN >60 >=60 06/30/2024 6:05 AM CDT [facility] Blood Venipuncture / Unknown 06/30/2024 5:35 AM CDT 06/30/2024 5:40 AM CDT Brayan Kang MD CHEMISTRY ORDERABLES Final Re sult Performing Organization Address City/[facility]/ZIP Co de Phone Number [facility] [address] [place] [address] * Magnesium (Mg) (06/30/2024 5:35 AM CDT) Only the most recent of3 resultswithin the time period is included. MAGNESIUM 2.3 1.6 - 2.6 mg/dL 06/30/2024 6:05 AM CDT [facility] Blood Venipuncture / Unknown 06/30/2024 5:35 AM CDT 06/30/2024 5:40 AM CDT us Debo Keenan APRN, CNP CHEMISTRY ORDERABLES Final Result [facility] [address] [place] [address] * RHYTHM STRIP (06/30/2024 12:00 AM CDT) Only the most recent of11 resultswithin the time period is included. 06/30/2024 us Provider Scan IMG ECG ORDERABLES Final Result Performing Organization Address [facility] Co de Phone Number RESULTING AGENCY * Lactic Acid (Lactate) (06/29/2024 5:48 AM CDT) Only the most recent of3 resultswithin the time period is included. LACTIC ACID 0.9 0.7 - 2.0 mmol/L 06/29/2024 6:17 AM CDT [facility] Comment: Specimen is hemolyzed. In vitro hemolysis could affect results. Clinical correlation advised. Blood Venipuncture / Unknown 06/29/2024 5:48 AM CDT 06/29/2024 5:56 AM CDT Brayan Kang MD CHEMISTRY ORDERABLES Final Re sult Performing Organization Address [facility] de Phone Number [facility] [address] [place] [address] * PHOSPHORUS (PO4) (06/29/2024 5:48 AM CDT) [facility] PHOSPHORUS 3.1 2.5 - 4.5 mg/dL 06/29/2024 6:23 AM CDT [facility] Blood Venipuncture / Unknown 06/29/2024 5:48 AM CDT 06/29/2024 5:56 AM CDT Brayan Kang MD CHEMISTRY ORDERABLES Final Re sult Performing Organization Address [facility] Co de Phone Number [facility] [address] [place] [address] * (ABNORMAL) URINALYSIS REFLEX IF INDICATED BY ABNORMAL RESULTS (06/28/2024 6:21 PM CDT) Pathologist [facility] SPECIFIC GRAVITY 1.015 1.003 - 1.030 06/28/2024 6:46 PM CDT [facility] URINE PH 6.0 5.0 - 9.0 06/28/2024 6:46 PM CDT [facility] WBC ESTERASE 25 /ul(A) Negative 06/28/2024 6:46 PM CDT [facility] NITRITE Negative Negative 06/28/2024 6:46 PM CDT [facility] PROTEIN, RANDOM URINE 30 mg/dL(A) Negative 06/28/2024 6:46 PM CDT [facility] URINE GLUCOSE, QUAL Negative Negative 06/28/2024 6:46 PM CDT [facility] URINE KETONES 150 mg/dL(A) Negative 6:46 PM CDT [facility] UROBILINOGEN Normal Normal mg/dL 06/28/2024 6:46 PM CDT [facility] URINE BLOOD 250 /uL(A) Negative chidi/ul 06/28/2024 6:46 PM CDT [facility] URINALYSIS COLOR Dark Yellow 024 6:46 PM CDT [facility] URINALYSIS CLARITY Clear 06/28/2024 6:46 PM CDT [facility] WBC (Urine) 0-5 Negative, 0-5 /hpf 06/28/2024 6:46 PM CDT [facility] URINE RBC'S 51-150(A) Negative, 0-2 /hpf 06/28/2024 6:46 PM CDT [facility] EPITHELIAL CELLS Moderate amount /lpf 06/28/2024 6:46 PM CDT [facility] BACTERIA, URINE Few(A) Negative /hpf 06/28/2024 6:46 PM CDT [facility] Urine URINE SPECIMEN COLLECTION, CLEAN CATCH / Unknown Non-Phlebotomy Collection / Unknown 06/28/2024 6:21 PM CDT 06/28/2024 6:27 PM CDT us Violetta Mcdonald MD URINE ORDERABLES Final R esult [facility] [address] [place] [address] * CMV DNA Quant PCR (06/28/2024 3:30 PM CDT) Pathologist [facility] CMV DNA QUANT PCR NON DETECTED NON DETECTED 06/29/2024 12:[address] [facility] CMV DNA QT LOG 06/29/2024 12:[address] [facility] Comment: LOG 10 not applicable Blood Venipuncture / Unknown 06/28/2024 3:30 PM CDT 06/28/2024 3:[address] [facility] - 06/29/2024 12:48 PM CDT Supplemental testing methods may be needed when CMV viral loads are negative in patients highly suspected to have clinically significant CMV viremia This test was performed using JUAN F 5800 Real Time PCR. Violetta Mcdonald MD IMMUNOLOGY ORDERABLES [facility] Result [facility] [address] [place] [address], * Stanley Collazo Virus (EBV) Comprehensive (06/28/2024 3:30 PM CDT) [facility] EBV VCA IGG AB (STANLEY-COLLAZO VIRUS-VIRAL CAPSID ANTIGEN) 3.4 AI 06/29/2024 5:[address] [facility] Comment: <= 0.8 Negative. ??No detectable IgG antibody to VCA. 0.9 - 1.0 Equivocal >=1.1 Positive Antibody testing was performed by multiplex flow immunoassay on the BioPlex platform. EBV NUCLEAR AG >8.0 AI 06/29/2024 5:[address] [facility] Comment: <= 0.8 Negative. ??No detectable IgG antibody to NA. 0.9 - 1.0 Equivocal >=1.1 Positive Antibody testing was performed by multiplex flow immunoassay on the BioPlex platform. EBV EARLY AG(EA, DIF) <0.2 AI 06/29/2024 5:[address] [facility] Comment: <= 0.8 Negative. ??No detectable IgG antibody to EA. 0.9 - 1.0 Equivocal >=1.1 Positive Antibody testing was performed by multiplex flow immunoassay on the [employer]Plex platform. EBV VCA IGM AB (STANLEY-COLLAZO VIRUS-VIRAL CAPSID ANTIGEN) 0.2 <1.1 AI 06/29/2024 5:[address] [facility] Comment: <= 0.8 Negative. ??No detectable IgM antibody to VCA. 0.9 - 1.0 Equivocal >=1.1 Positive Antibody testing was performed by multiplex flow immunoassay on the BioPlex platform. EBV HETEROPHILE <0.2 <1.1 AI 5:[address] [facility] Comment: <= 0.8 Negative. ??No detectable Heterophile antibody. 0.9 - 1.0 Equivocal >=1.1 Positive Antibody testing was performed by multiplex flow immunoassay on the BioPlex platform. EBV INTERP: 06/29/2024 5:[address] 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 Blood Venipuncture / Unknown 06/28/2024 3:30 PM CDT 06/28/2024 3:33 PM CDT us Violetta Mcdonald MD IMMUNOLOGY ORDERABLES Fi nal Result [facility] [address] [place] [address], [place] * XR REFERENCE IMAGES FOR IMAGE [...] PM T: ??06/27/2024 1:07 PM Report ID: [id number] Reading Location: ??[id number] Procedure Note Filipe Erazo MD - 06/27/2024 [...] Filipe Erazo M.D. MM: MM Report ID: [id number] Reading Location: [id number] IMPRESSION: No acute pulmonary process. Debo Keenan APRN, CNP IMG DIAGNOSTIC ORDERA BLES Final Result * ABO/RH (D) RECHECK (06/27/2024 11:38 AM CDT) Only the most recent of2 resultswithin the time period is included. ABO TYPING O 06/27/2024 1:16 PM CDT [facility]OD [facility] RH Positive 06/27/2024 1:16 PM CDT [facility] Blood Venipuncture / Unknown 06/27/2024 11:38 AM CDT 06/27/2024 1:13 PM CDT Romelia Horn MD PhD BLOOD BANK ORDERABLES Final Result [facility] B[facility]OD [facility] [address] [place] [address] * Culture, Blood (06/27/2024 11:38 AM CDT) Only the most recent of2 resultswithin the time period is included. CULTURE RESULTS NO GROWTH WITHIN 5 DAYS, FINAL RESULT 07/02/2024 12:[address] [facility] Culture BLOOD SPECIMEN / Unknown Venipuncture / Unknown 06/27/2024 11:38 AM CDT 06/27/2024 11:[address] [facility] - 07/02/2024 12:00 PM CDT Only received an anaerobic bottle for this culture set (no aerobic bottle). Due to the current Bactec bottle shortage, this culture will still be processed. Brayan Kang MD MICROBIOLOGY - GENERAL ORDERA BLES Final Result [facility] [address] [place] [address], [place] * PT/INR Routine (06/27/2024 11:20 AM CDT) PROTIME-PATIENT 14.1 11.6 - 14.8 sec 06/27/2024 11:46 AM CDT [facility] INR 1.1 0.9 - 1.2 06/27/2024 11:46 AM CDT [facility] Comment: Therapeutic Ranges INR = 2.0-3.0: Venous thromb, atrial fib, pul embolism, tissue heart valve, ami. INR = 2.5-3.5: Mechanical heart valve Critical value for INR is >/= 4.5 Blood BLOOD SPECIMEN / Unknown Venipuncture / Unknown 06/27/2024 11:20 AM CDT 06/27/2024 11:26 AM CDT Brayan Kang MD HEMATOLOGY ORDERABLES Final R esult Performing Organization Address City/[facility]/ZIP Co de Phone Number [facility] [address] [place] [address] * TYPE & SCREEN (CROSSMATCH CONVERTIBLE) (06/27/2024 11:20 AM CDT) Pathologist [facility] ABO TYPING O 06/27/2024 12:47 PM CDT [facility] RH Positive 06/27/2024 12:47 PM CDT [facility] ABSC Negative 06/27/2024 12:47 PM CDT [facility] Blood Venipuncture / Unknown 06/27/2024 11:20 AM CDT 06/27/2024 11:26 AM CDT Brayan Kang MD BLOOD BANK ORDERABLES Edited Result - Final [facility]OD [facility] [address] [place] [address] * Lipase (06/27/2024 11:20 AM CDT) Pathologist [facility] LIPASE 36 8 - 78 U/L 06/27/2024 11:52 AM CDT [facility] Blood Venipuncture / Unknown 06/27/2024 11:20 AM CDT 06/27/2024 11:26 AM CDT Brayan Kang MD CHEMISTRY ORDERABLES Final Re sult Performing Organization Address City/[facility]/ZIP Co de Phone Number [facility] [address] [place] [address] * (ABNORMAL) Amylase (06/27/2024 11:20 AM CDT) AMYLASE 21(L) 25 - 125 U/L 06/27/2024 11:52 AM CDT [facility] Blood Venipuncture / Unknown 06/27/2024 11:20 AM CDT 06/27/2024 11:26 AM CDT Brayan Kang MD CHEMISTRY ORDERABLES Final Re sult Performing Organization Address City/[facility]/ZIP Co de Phone Number [facility] [address] [place] [address] * Procalcitonin (06/27/2024 11:20 AM CDT) PROCALCITONIN 0.16 <=0.25 ng/mL 06/27/2024 12:11 PM CDT [facility] Blood Venipuncture / Unknown 06/27/2024 11:20 AM CDT 06/27/2024 11:26 AM CDT Brayan Kang MD IMMUNOLOGY ORDERABLES Final R esult Performing Organization Address City/[facility]/ZIP Co de Phone Number [facility] [address] [place] [address] * (ABNORMAL) CMP (Comprehensive Metabolic Panel) (06/27/2024 11:20 AM CDT) SODIUM 136 136 - 145 mmol/L 06/27/2024 11:52 AM T [facility] POTASSIUM 3.1(L) 3.5 - 5.1 mmol/L 06/27/2024 11:52 AM [facility] CHLORIDE 105 98 - 107 mmol/L 06/27/2024 11:52 AM [facility] CO2, VENOUS 19(L) 22 - 30 mmol/L 06/27/2024 11:52 AM [facility] ANION GAP 15.1 <18.0 mmol/L 06/27/2024 11:52 AM [facility] GLUCOSE 112(H) 70 - 99 mg/dL 06/27/2024 11:52 AM [facility] BUN 10 5 - 18 mg/dL 06/27/2024 11:52 AM [facility] CREATININE, BLOOD 1.10(H) 0.60 - 1.00 mg/dL 06/27/2024 11:52 AM [facility] BUN/CREATININE RATIO 9(L) 12 - 20 ratio 06/27/2024 11:52 AM [facility] TOTAL PROTEIN 6.0(L) 6.3 - 8.2 g/dL 06/27/2024 11:52 AM [facility] ALBUMIN 3.3(L) 3.5 - 5.0 g/dL 06/27/2024 11:52 AM [facility] A/G RATIO 1.2 1.0 - 2.2 06/27/2024 11:52 AM [facility] CALCIUM 8.7 8.7 - 10.5 mg/dL 06/27/2024 11:52 AM [facility] T BILI 0.6 0.2 - 1.2 mg/dL 06/27/2024 11:52 AM [facility] SGOT (AST) 15 5 - 34 U/L 06/27/2024 11:52 AM [facility] SGPT (ALT) 39 0 - 55 [...] EST. >60 >=60 024 11:52 AM [facility] GFR, EST. NONAFRICAN >60 >=60 06/27/2024 11:52 AM CDT [facility] Blood Venipuncture / Unknown 06/27/2024 11:20 AM CDT 06/27/2024 11:26 AM CDT us Brayan Kang MD CHEMISTRY ORDERABLES Final Re sult Performing Organization Address [facility]/ZIP Co de Phone Number [facility] [address] [place] [address] * CT - ABDOMEN/PELVIS (06/27/2024 12:00 AM CDT) 06/27/2024 us Provider Scan IMG CT ORDERABLES Final Result SCAN * C. DIFFICILE BY PCR (06/27/2024 12:00 AM CDT) 06/27/2024 us Provider Scan MICROBIOLOGY - GENERAL ORDERABLE S Final Result Performing Organization Address City/[facility]/ZIP Co de Phone Number SCAN [...] taking oral intake without complications and both PO/TN orders are active, administer through the oral route. acetaminophen (TYLENOL) tablet 650 mg 650 mg, Oral, EVERY 4 HOURS PRN, Starting on Tue06/27/24 at 1155, Until 06/30/24 at 2110, Mild pain or more severe pain if patient requests, Fever, If patient is taking oral intake without complications and both PO/TN orders are active, administer through the oral [...] Dyer RN) 0828 (Given - Provider: Sherley Dyre RN)1700 (Not Given - Provider: Sherley Dyer [...] Nell Sinha RN) 1732 (Stopped - Provider: Sehrley Dyer RN)1733 (New Bag - Provider: Sherley [...] taking oral intake without complications and both PO/TN orders are active, administer through the oral route. acetaminophen (TYLENOL) tablet 650 mg(Linked Group 1) 650 mg, Oral, EVERY 4 HOURS PRN, Starting on Tue06/27/24 at 1155, Until 06/30/24 at 2110, Mild pain or more severe pain if patient requests, Fever, If patient is taking oral intake without complications and both PO/TN orders are active, administer through the oral [...] taking oral intake without complications and both PO/TN orders are active, administer through the oral route. Or acetaminophen (TYLENOL) suppository 650 mgJump to med 650 mg, Rectal, EVERY 4 HOURS PRN, Starting on 06/27/24 at 1155, Until 06/30/24 at 2111, Mild pain or more severe pain if patient requests, Fever, If patient is taking oral intake without complications and both PO/TN orders are active, administer through the oral route. documented in this encounter Additional Health Concerns Infection Onset Date Last Indicated Resolved Time C. difficile Rule-Out Comment:Patient tested at [facility] and PCR was negative. 06/27/2024 06/27/2024 5:17 AM CDT documented as of this encounter Care Teams Service Station Operator Relationship Specialty Start Date End Date Kellen Chu MD [address] [place] [address] PCP - General Family Medicine 04/18/24 Markus Finley MD [address] [place] [address] Consulting Physician Medical Oncology 04/18/24 documented as of this encounter
--- OUTSIDE RECORDS SUMMARY | 2024-10-27 03:41 | XMS_ITS | Encounter Summary ---
Author Organization [facility] Address [address] [place] [address] Phone Care Team Providers Care Fish Processor Name Role Phone Pritesh Chu MD Primary Care Provider [phone] Markus Finley MD Unavailable [phone] Encounter Details Date Type Department Care Team (Late st Contact Info) Description 05/02/2024 Documentation Only [facility] Oncology Services [address] [place] [id number] Markus Finley MD [address] [place] [address] Social History Tobacco Use Types Packs/Day Years [...] junel Fe24 Vitamins: none listed Labs: 04/18/24-albumin=4.3, OJ=333, Gh=078, K=3.6, EGFR>60 Initial Wt: 293# -05/01/2024 Height: 5' 7 BMI: 45.94 BMI weight range for height: 121-158# Adjusted BW: 170# EMR wt hx: 290# -04/18/2024 ([facility] ONC) 288# 9oz-03/06/2024 290# -10/04/2023 285# - %Wt Loss: 0% Estimated needs:(based on adjusted BW) Calories: 7486-9580 (25-30kcal/kg) Protein: 77-100gm (1-1.3gm/kg) Fluids: 2300ml A: [...] st Contact Info) Description 11/15/2024 1:00 PM MARIONETTE PERFORMER Lab [facility] [address] [place] [address] Markus Finley MD [address] [place] [address] 11/15/2024 2:00 PM MARIONETTE PERFORMER [facility]ointment [facility] [address] [place] [address] Markus Finley MD [address] [place] [address] Discharge Disposition: Discharged to home or Selfcare documented as of this encounter Visit Diagnoses Not on filedocumented in this encounter Care Teams Fish Processor Relationship Specialty Start Date End Date Pritesh Chu MD [address] [place] [address] PCP - General Family Medicine 04/18/24 Markus Finley MD [address] [place] [address] Consulting Physician Medical Oncology 04/18/24 documented as of this encounter
--- OUTSIDE RECORDS SUMMARY | 2024-10-27 03:42 | XMS_ITS ---
Author Organization [facility] Address [address] [place] [address] Phone Care Team Providers Care Electrician Assistant Name Role Phone Pritesh Chu MD Primary Care Provider [phone] Markus Finley MD Unavailable [phone] Zander Cha MD Unavailable [facility] Status:Enrolled (Active) Start date:09/24/2024 Enrollment date:09/24/2024 Related social drivers of health:Intimate Partner Violence, Social Connections, Alcohol Use, Tobacco Use, Financial Resource Strain,Depression, Stress, Physical Activity, Food Insecurity, Transportation Needs, Housing Stability, Utilities Continued Care and Services Coordination
--- OUTSIDE RECORDS SUMMARY | 2024-10-27 03:42 | XMS_ITS | Encounter Summary ---
Author Organization [facility] Address [address] [facility] [place] [address] Phone Care Team Providers Care Manager Health Name Role Phone Pritesh Chu MD Primary Care Provider [phone] Markus Finley MD Unavailable [phone] Reason for Referral * Radiology Services (Routine) - Closed Specialty Diagnoses / Procedures Referred By Delbert villareal Referred To Contact Diagnoses Metastatic melanoma (HCC) Procedures MRI BRAIN W/WO CONTRAST Markus Finley MD [address] [place] [address] Phone: tel: fax: [facility] [address] [address] Phone: tel: fax: Referral ID Status Reason Start Date Expiration Date Visits Re quested Visits Authorized [id number] Closed 04/18/2024 1 1 Reason for Visit * Reason Comments New Patient Metastatic melanoma * Consult, Test & Initiate Treatment (Routine) - Open Specialty Diagnoses / Procedures Referred By Contac t Referred To Contact Radiology Diagnoses Metastatic melanoma (HCC) [facility] [address] [place] [address] Phone: tel: fax: Referral ID Status Reason Start Date Expiration Date Visits Re quested Visits Authorized [id number] Open 1 1 Encounter Details Date Type Department Care Team (Late st Contact Info) Description 04/18/2024 3:00 PM CDT [facility] [address] [place] [address] Markus Finley MD [address] [place] [address] Metastatic melanoma (HCC) (Primary Dx) [...] sent through Care Everywhere. 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 Genetics Risk Assessment Discussed/N/A Allergies as of [...] attempt to complete this imaging study at [facility] as it is easier to access this hospital from patient's home. 3. 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 Genetics Risk Assessment Discussed/N/A Allergies as of [...] attempt to complete this imaging study at [facility] as it is easier to [...] treatment 05/01. MRIbrain to be scheduled at [facility]. documented in this encounter Plan of Treatment Upcoming Encounters Date Type Department Care Team (Late st Contact Info) Description 11/15/2024 1:00 PM CONTACT LENS BLOCKER Lab [facility] Laboratory Services [address] [place] [address] Markus Finley MD [address] [place] [address] 11/15/2024 2:00 PM CONTACT LENS BLOCKER Appointment [facility] MRI [address] [place] [phone] Markus Finley MD [address] [place] [address] Discharge Disposition: Discharged to home or Selfcare [...] 12.00 10(3)/mcL 04/18/2024 4:54 PM CDT [facility] RBC 4.87 3.80 - 5.30 10(6)/mcL 04/18/2024 4:54 PM CDT [facility] HEMOGLOBIN (HGB) 14.7 12.0 - 15.8 g/dL 04/18/2024 4:54 PM CDT [facility] HEMATOCRIT (HCT) 42.4 36.0 - 47.0 % 04/18/2024 4:54 PM CDT [facility] MCV 87.1 82.0 - 96.0 fL 04/18/2024 4:54 PM CDT [facility] MCH 30.2 26.0 - 34.0 pg 04/18/2024 4:54 PM CDT [facility] MCHC 34.7 31.0 - 36.0 g/dL 04/18/2024 4:54 PM CDT [facility] PLATELET COUNT 266 140 - 440 10(3)/mcL 04/18/2024 4:54 PM CDT [facility] RDW 11.4(L) 11.8 - 15.5 % 04/18/2024 4:54 PM CDT [facility] MPV 10.9 9.7 - 12.4 fL 04/18/2024 4:54 PM CDT [facility] NEUTROPHILS 62.8 47.0 - 73.0 % 04/18/2024 4:54 PM CDT [facility] LYMPHOCYTES 29.2 18.0 - 42.0 % 04/18/2024 4:54 PM CDT [facility] MONOCYTES 6.1 4.0 - 12.0 % 04/18/2024 4:54 PM CDT [facility] EOSINOPHILS 1.3 0.0 - 5.0 % 04/18/2024 4:54 PM CDT [facility] BASOPHILS 0.6 0.0 - 1.0 % 04/18/2024 4:54 PM CDT [facility] ABSOLUTE NEUTROPHILS 5.28 1.60 - 7.70 10(3)/mcL 04/18/2024 4:54 PM CDT [facility] ABSOLUTE LYMPHOCYTES 2.45 1.30 - 3.20 10(3)/mcL 04/18/2024 4:54 PM CDT [facility] ABSOLUTE MONOCYTES 0.51 0.20 - 1.00 10(3)/mcL 04/18/2024 4:54 PM CDT [facility] ABSOLUTE EOSINOPHIL 0.11 0.00 - 0.40 10(3)/mcL 04/18/2024 4:54 PM CDT [facility] ABSOLUTE BASOPHILS 0.05 0.00 - 0.10 10(3)/mcL 04/18/2024 4:54 PM CDT [facility] NRBC PER 100 WBC 0 04/18/20 24 4:54 PM CDT [facility] Blood Venipuncture / Unknown 04/18/2024 4:28 PM CDT 04/18/2024 4:28 PM CDT us Markus Finley MD HEMATOLOGY ORDERABLES Fi nal Result [facility] [address] [place] [address] * (ABNORMAL) CMP (Comprehensive Metabolic Panel) (04/18/2024 4:28 PM CDT) SODIUM 140 136 - 145 mmol/L 04/18/2024 5:13 PM CDT [facility] POTASSIUM 3.6 3.5 - 5.1 mmol/L 04/18/2024 5:13 PM CDT [facility] CHLORIDE 107 98 - 107 mmol/L 04/18/2024 5:13 PM CDT [facility] CO2, VENOUS 22 22 - 30 mmol/L 04/18/2024 5:13 PM CDT [facility] ANION GAP 14.6 <18.0 mmol/L 04/18/2024 5:13 PM CDT [facility] GLUCOSE 105(H) 70 - 99 mg/dL 04/18/2024 5:13 PM CDT [facility] BUN 14 5 - 18 mg/dL 04/18/2024 5:13 PM CDT [facility] CREATININE, BLOOD 0.94 0.60 - 1.00 mg/dL 04/18/2024 5:13 PM CDT [facility] BUN/CREATININE RATIO 15 12 - 20 ratio 04/18/2024 5:13 PM CDT [facility] TOTAL PROTEIN 7.9 6.3 - 8.2 g/dL 04/18/2024 5:13 PM CDT [facility] ALBUMIN 4.3 3.5 - 5.0 g/dL 04/18/2024 5:13 PM CDT [facility] A/G RATIO 1.2 1.0 - 2.2 04/18/2024 5:13 PM CDT [facility] CALCIUM 9.9 8.7 - 10.5 mg/dL 04/18/2024 5:13 PM CDT [facility] T BILI 0.3 0.2 - 1.2 mg/dL 04/18/2024 5:13 PM CDT [facility] SGOT (AST) 24 5 - 34 U/L 04/18/2024 5:13 PM CDT [facility] SGPT (ALT) 30 0 - 55 U/L 04/18/2024 5:13 PM CDT [facility] ALKALINE PHOSPHATASE 47 40 - 150 U/L 04/18/2024 5:13 PM CDT [facility] GFR, ESTIMATED >60 >=60 04/18/2024 5:13 PM CDT [facility] Comment: Creatinine Clearance is the preferred criteria for selecting drug dose adjustments in renally impaired patients. ??The GFR is provided as additional pertinent clinical information. GFR is reported in mL/min/1.73 sq m. Calculation based on the Chronic Kidney Disease Epidemiology Collaboration (CKD- EPI) equation refit without adjustment for race. GFR, EST. >60 >=60 024 5:13 PM CDT [facility] GFR, EST. NONAFRICAN >60 >=60 04/18/2024 5:13 PM CDT [facility] Blood Venipuncture / Unknown 04/18/2024 4:28 PM CDT 04/18/2024 4:28 PM CDT us Markussarthak Finley MD CHEMISTRY ORDERABLES Fin al Result Performing Organization Address City/[facility]/ZIP Co de Phone Number [facility] [address] [place] [address] * (ABNORMAL) LACTATE DEHYDROGENASE (LD) (04/18/2024 4:28 PM CDT) LDH 229(H) 125 - 220 U/L 04/18/2024 5:13 PM CDT [facility] Blood Venipuncture / Unknown 04/18/2024 4:28 PM CDT 04/18/2024 4:28 PM CDT us Markus Finley MD CHEMISTRY ORDERABLES Fin al Result Performing Organization Address [facility] Co de Phone Number [facility] [address] [place] [address] documented in this encounter Visit Diagnoses Diagnosis Metastatic melanoma (HCC)- Primary Melanoma of skin, site unspecified documented in this encounter Care Teams Manager Health Relationship Specialty Start Date End Date Pritesh Chu MD [address] [place] [address] PCP - General Family Medicine 04/18/24 Markus Finley MD [address] [place] [address] Consulting Physician Medical Oncology 04/18/24 documented as of this encounter
--- OUTSIDE RECORDS SUMMARY | 2024-10-27 03:42 | XMS_ITS ---
Author Organization [facility] Address [address] [place] [address] Phone Care Team Providers Care Brick Baker Name Role Phone Pritesh Chu MD Primary Care Provider [phone] Markus Finley MD Unavailable [phone] Zander Cha MD Unavailable Ambulatory Transitions of Care Status:Closed (Closed) Start date:07/30/2024 Enrollment date:07/31/2024 End date:08/09/2024 Close reason:Patient graduated Related social drivers of health:Intimate Partner Violence, Social Connections, Alcohol Use, Tobacco Use, Financial Resource Strain,Depression, Stress, Physical Activity, Food Insecurity, Transportation Needs, Housing Stability, Utilities Continued Care and Services Coordination
--- OUTSIDE RECORDS SUMMARY | 2024-10-27 03:57 | XMS_ITS | Clinical Summary ---
Author Organization [facility] Address [address] [place] [address] Care Team Providers Care Rubber Tubing Splicer Name Role Phone Pritesh Chu MD Primary Care Provider [phone] Allergies No known active allergies Medications Medication [...] Department Care Team Description 10/22/2024 Orders Only [facility] Oncology and Hematology - [place] [address] [facility] [place] [address] Christopher Meeks MD Malignant melanoma of lower extremity, unspecified laterality 10/08/2024 Orders Only [facility] Oncology and Hematology - [place] [address] [facility] [address] Christopher Meeks MD Malignant melanoma of lower extremity, unspecified laterality 09/24/2024 Orders Only [facility] Oncology and Hematology - [place] [address] [place] [phone] Christopher Meeks MD Malignant melanoma of lower extremity, unspecified laterality 09/10/2024 Orders Only [facility] Oncology and Hematology - [place] [address] [place] [address] Christopher Meeks MD Malignant melanoma of lower extremity, unspecified laterality 08/27/2024 Orders Only [facility] Oncology and Hematology - [place] [address] [place] [address] Christopher Meeks MD Malignant melanoma of lower extremity, unspecified laterality 08/13/2024 Orders Only [facility] Oncology and Hematology - [place] [address] [place] [address] Christopher Meeks MD Malignant melanoma of lower extremity, unspecified laterality 07/30/2024 Orders Only [facility] Oncology and Hematology - [place] [address] [place] [address] Christopher Meeks MD Malignant melanoma [...] cm (5' 7 ) 09/13/2023 8:48 AM BOND MANAGER Body Mass Index 45.2 09/13/2023 8:48 AM BOND MANAGER Plan of Treatment Health Maintenance Due Date [...] age to complete this topic Care Teams Rubber Tubing Splicer Relationship Specialty Start Date End Date Pritesh Chu MD [address] [place] [address] PCP - General Family Practice 09/13/23
--- OUTSIDE RECORDS SUMMARY | 2024-10-27 03:59 | XMS_ITS | Encounter Summary ---
Author Organization [facility] [employer] [facility] Address [address] [place] [address] Care Team Providers Care Sheet Metal Layout Mechanic Name Role Phone Pritesh Chu MD Primary Care Provider [phone] Encounter Details Date Type Department Care Team (Late st Contact Info) Description 08/27/2024 Orders Only [facility] Oncology and Hematology - [place] [address] [place] [address] [address] [place] [address] Christopher Meeks MD [address] [facility] [address] [place] [address] Malignant melanoma of lower [...] laterality documented in this encounter Care Teams Sheet Metal Layout Mechanic Relationship Specialty Start Date End Date Pritesh Chu MD [address] [place] [address] PCP - General Family Practice 09/13/23 documented as of this encounter
--- OUTSIDE RECORDS SUMMARY | 2024-10-27 03:59 | XMS_ITS | Encounter Summary ---
Author Organization [facility] [employer] [facility] Address [address] [place] [address] Care Team Providers Care Institutional Research Director Name Role Phone Pritesh Chu MD Primary Care Provider [phone] Encounter Details Date Type Department Care Team (Late st Contact Info) Description 09/10/2024 Orders Only [facility] Oncology and Hematology - [place] [address] [place] [address] [address] [place] [address] Christopher Meeks MD [address] [facility] [address] [place] [address] Malignant melanoma of lower extremity, [...] laterality documented in this encounter Care Teams Institutional Research Director Relationship Specialty Start Date End Date Pritesh Chu MD [address] [place] [address] PCP - General Family Practice 09/13/23 documented as of this encounter
--- OUTSIDE RECORDS SUMMARY | 2024-10-27 03:59 | XMS_ITS | Encounter Summary ---
Author Organization [facility] [employer] [facility] Address [address] [place] [address] Care Team Providers Care Corn Detasseler Name Role Phone Pritesh Chu MD Primary Care Provider [phone] Encounter Details Date Type Department Care Team (Late st Contact Info) Description 09/24/2024 Orders Only [facility] Oncology and Hematology - [place] [address] [place] [address] [address] [place] [address] Christopher Meeks MD [address] [facility] [address] [place] [address] Malignant melanoma of lower extremity, [...] laterality documented in this encounter Care Teams Corn Detasseler Relationship Specialty Start Date End Date Pritesh Chu MD [address] [place] [address] PCP - General Family Practice 09/13/23 documented as of this encounter
[2024-10-27 04:00] VITALS: BP 141/99; PULSE 71; RESP 20; TEMP 36.4; O2SAT 99
--- OUTSIDE RECORDS SUMMARY | 2024-10-27 04:00 | XMS_ITS | Encounter Summary ---
Author Organization [facility] Address [address] [place] [address] Care Team Providers Care Marble Cutter Name Role Phone Pritesh Chu MD Primary Care Provider [phone] Encounter Details Date Type Department Care Team [...] on filedocumented in this encounter Care Teams Marble Cutter Relationship Specialty Start Date End Date Pritesh Chu MD [address] [place] [address] PCP - General Family Practice 09/13/23 documented as of this encounter
--- OUTSIDE RECORDS SUMMARY | 2024-10-27 04:00 | XMS_ITS | Encounter Summary ---
Author Organization [facility] Address [address] [address] Care Team Providers Care Double End Tenoner Operator Name Role Phone Pritesh Chu MD Primary Care Provider [phone] Encounter Details Date Type Department Care Team (Late st Contact Info) Description 04/23/2024 Orders Only [facility] Oncology and Hematology - [place] [address] [place] [address] [address] [place] [address] Christopher Meeks MD [address] [facility] [address] [place] [address] Malignant melanoma of lower extremity, [...] laterality documented in this encounter Care Teams Double End Tenoner Operator Relationship Specialty Start Date End Date Pritesh Chu MD [address] [place] [address] PCP - General Family Practice 09/13/23 documented as of this encounter
--- OUTSIDE RECORDS SUMMARY | 2024-10-27 04:00 | XMS_ITS | Encounter Summary ---
Author Organization [facility] [employer] [facility] Address [address] [place] [address] Care Team Providers Care Survey Cad Technician Name Role Phone Pritesh Chu MD Primary Care Provider [phone] Encounter Details Date Type Department Care Team (Late st Contact Info) Description 07/30/2024 Orders Only [facility] Oncology and Hematology - [place] [address] [place] [address] [address] [place] [address] Christopher Meeks MD [address] [facility] [address] [place] [address] Malignant melanoma of lower extremity, [...] laterality documented in this encounter Care Teams Survey Cad Technician Relationship Specialty Start Date End Date Pritesh Chu MD [address] [place] [address] PCP - General Family Practice 09/13/23 documented as of this encounter
--- OUTSIDE RECORDS SUMMARY | 2024-10-27 04:00 | XMS_ITS | Encounter Summary ---
Author Organization [facility] [employer] [facility] Address [address] [place] [address] Care Team Providers Care Video Game Creator Name Role Phone Pritesh Chu MD Primary Care Provider [phone] Encounter Details Date Type Department Care Team (Late st Contact Info) Description 04/09/2024 Orders Only [facility] Oncology and Hematology - [place] [address] [facility] [address] [place] [address] Christopher Meeks MD [address] [facility] [address] [place] [address] Malignant melanoma of lower extremity, [...] laterality documented in this encounter Care Teams Video Game Creator Relationship Specialty Start Date End Date Pritesh Chu MD [address] [place] [address] PCP - General Family Practice 09/13/23 documented as of this encounter
--- OUTSIDE RECORDS SUMMARY | 2024-10-27 04:00 | XMS_ITS | Encounter Summary ---
Author Organization [facility] Address [address] [place] [address] Care Team Providers Care Alternative Financing Specialist Name Role Phone Pritesh Chu MD Primary Care Provider [phone] Encounter Details Date Type Department Care Team [...] on filedocumented in this encounter Care Teams Alternative Financing Specialist Relationship Specialty Start Date End Date Pritesh Chu MD [address] [place] [address] PCP - General Family Practice 09/13/23 documented as of this encounter
--- OUTSIDE RECORDS SUMMARY | 2024-10-27 04:00 | XMS_ITS | Encounter Summary ---
Author Organization [facility] [email or web address] [facility] Address [address] [place] [address] Care Team Providers Care Pot Firer Name Role Phone Pritesh Chu MD Primary Care Provider [phone] Encounter Details Date Type Department Care Team (Late st Contact Info) Description 04/04/[address] [facility] Oncology and Hematology - [place] [address] [facility] [address] [place] [address] Christopher Meeks MD [address] [facility] [address] [place] [address] Social History Tobacco Use Types [...] on filedocumented in this encounter Care Teams Pot Firer Relationship Specialty Start Date End Date Pritesh Chu MD [address] [place] [address] PCP - General Family Practice 09/13/23 documented as of this encounter
--- OUTSIDE RECORDS SUMMARY | 2024-10-27 04:00 | XMS_ITS | Encounter Summary ---
Author Organization [facility] Address [address] [place] [address] Care Team Providers Care Production Internship Name Role Phone Pritesh Chu MD Primary Care Provider [phone] Encounter Details Date Type Department Care Team (Late st Contact Info) Description 05/21/2024 Orders Only [facility] Oncology and Hematology - [place] [address] [place] [address] [address] [place] [address] Christopher Meeks MD [address] [facility] [address] [place] [address] Malignant melanoma of lower extremity, [...] laterality documented in this encounter Care Teams Production Internship Relationship Specialty Start Date End Date Pritesh Chu MD [address] [place] [address] PCP - General Family Practice 09/13/23 documented as of this encounter
--- OUTSIDE RECORDS SUMMARY | 2024-10-27 04:00 | XMS_ITS | Encounter Summary ---
Author Organization [facility] Address [address] [place] [address] Care Team Providers Care Tube Bender Name Role Phone Pritesh Chu MD Primary Care Provider [phone] Encounter Details Date Type Department Care Team [...] on filedocumented in this encounter Care Teams Tube Bender Relationship Specialty Start Date End Date Pritesh Chu MD [address] [place] [address] PCP - General Family Practice 09/13/23 documented as of this encounter
--- OUTSIDE RECORDS SUMMARY | 2024-10-27 04:00 | XMS_ITS | Encounter Summary ---
Author Organization [facility] Address [address] [place] [address] Care Team Providers Care Superintendent Marine Name Role Phone Pritesh Chu MD Primary Care Provider [phone] Reason for Referral * Eval and Treat (Routine) - Closed Specialty Diagnoses / Procedures Referred By Delbert villareal Referred To Contact Surgery / Surgical Oncology Diagnoses Malignant melanoma of lower extremity, unspecified laterality Procedures MO OFFICE/OUTPATIENT ESTABLISHED MOD MDM 30 MIN MO OFFICE/OUTPATIENT NEW MODERATE MDM 45 MINUTES Christopher Meeks MD [address] [employer] [employer] [address] [place] [address] [facility] [id number] [place] [address] [place] [address] Referral ID Status Reason Start Date Expiration Date V isits Requested Visits Authorized [id number] Closed CRS to Schedule 03/06/2024 03/06/2025 1 1 * PET Scan (Routine) - Closed Specialty Diagnoses / Procedures Referred By Delbert villareal Referred To Contact Diagnoses Malignant melanoma of lower extremity, unspecified laterality Procedures PET TUMOR IMG W CT SKB MDTH CHG PET IMAGING CT ATTENUATION SKULL BASE MID-THIGH [place] F18 FDG Christopher Meeks MD [address] [employer] [address] [place] [address] [place] [address] Referral ID Status Reason Start Date Expiration Date V isits Requested Visits Authorized [id number] Closed STL CTS 03/19/2024 03/19/2025 1 1 Reason for Visit * Reason Comments Follow Up Cancer Encounter Details Date Type Department Care Team (Late st Contact Info) Description 03/06/2024 9:45 AM CDT Office Visit [facility] Oncology and Hematology - [place] [address] [facility] [address] [place] [address] Christopher Meeks MD [address] [facility] [address] [place] [address] Malignant melanoma of lower extremity, [...] Body Mass Index 45.2 09/13/2023 8:48 AM ALLERGY PHYSICIAN documented in this encounter Progress Notes * [...] Primary documented in this encounter Care Teams Superintendent Marine Relationship Specialty Start Date End Date Pritesh Chu MD [address] [place] [address] PCP - General Family Practice 09/13/23 documented as of this encounter
--- OUTSIDE RECORDS SUMMARY | 2024-10-27 04:00 | XMS_ITS | Encounter Summary ---
Author Organization [facility] [employer] [facility] Address [address] [place] [address] Care Team Providers Care Application Security Specialist Name Role Phone Pritesh Chu MD Primary Care Provider [phone] Encounter Details Date Type Department Care Team (Late st Contact Info) Description 02/27/2024 Orders Only [facility] Oncology and Hematology - [place] [address] [place] [address] [address] [place] [address] Christopher Meeks MD [address] [facility] [address] [place] [address] Malignant melanoma of lower extremity, [...] laterality documented in this encounter Care Teams Application Security Specialist Relationship Specialty Start Date End Date Pritesh Chu MD [address] [place] [address] PCP - General Family Practice 09/13/23 documented as of this encounter
--- OUTSIDE RECORDS SUMMARY | 2024-10-27 04:00 | XMS_ITS | Encounter Summary ---
Author Organization [facility] Address [address] [place] [address] Care Team Providers Care Iso Coordinator Name Role Phone Pritesh Chu MD Primary Care Provider [phone] Encounter Details Date Type Department Care Team [...] on filedocumented in this encounter Care Teams Iso Coordinator Relationship Specialty Start Date End Date Pritesh Chu MD [address] [place] [address] PCP - General Family Practice 09/13/23 documented as of this encounter
--- OUTSIDE RECORDS SUMMARY | 2024-10-27 04:00 | XMS_ITS | Encounter Summary ---
Author Organization [facility] [employer] [facility] Address [address] [place] [address] Care Team Providers Care Education Program Specialist Name Role Phone Pritesh Chu MD Primary Care Provider [phone] Encounter Details Date Type Department Care Team (Late st Contact Info) Description 06/04/[address] [facility] Oncology and Hematology - [place] [address] [place] [address] [address] [place] [address] Christopher Meeks MD [address] [facility] [address] [place] [address] Malignant melanoma of lower extremity, [...] laterality documented in this encounter Care Teams Education Program Specialist Relationship Specialty Start Date End Date Pritesh Chu MD [address] [place] [address] PCP - General Family Practice 09/13/23 documented as of this encounter
--- OUTSIDE RECORDS SUMMARY | 2024-10-27 04:00 | XMS_ITS | Encounter Summary ---
Author Hub Preferred Language Unknown Marital Status Single Faith Affiliation Unknown Race White Ethnic Group Unknown Author Organization [facility] [employer] [facility] Address [address] [place] [address] Care Team Providers Care Contact Center Specialist Name Role Phone Pritesh Chu MD Primary Care Provider [phone] Encounter Details Date Type Department Care Team (Late st Contact Info) Description 02/29/2024 Orders Only [facility] Oncology and Hematology - [place] [address] [facility] [address] [place] [address] Christopher Meeks MD [address] [facility] [address] [place] [address] Malignant melanoma of lower [...] Primary documented in this encounter Care Teams Contact Center Specialist Relationship Specialty Start Date End Date Pritesh Chu MD [address] [place] [address] PCP - General Family Practice 09/13/23 documented as of this encounter
--- OUTSIDE RECORDS SUMMARY | 2024-10-27 04:00 | XMS_ITS | Encounter Summary ---
Author Organization [facility] [employer] [facility] Address [address] [place] [address] Care Team Providers Care Volcanologist Name Role Phone Pritesh Chu MD Primary Care Provider [phone] Encounter Details Date Type Department Care Team (Late st Contact Info) Description 01/02/2024 Orders Only [facility] Oncology and Hematology - [place] [address] [place] [address] [address] [place] [address] Christopher Meeks MD [address] [facility] [address] [place] [address] Malignant melanoma of lower extremity, [...] laterality documented in this encounter Care Teams Volcanologist Relationship Specialty Start Date End Date Pritesh Chu MD [address] [place] [address] PCP - General Family Practice 09/13/23 documented as of this encounter
--- OUTSIDE RECORDS SUMMARY | 2024-10-27 04:00 | XMS_ITS | Encounter Summary ---
Author Organization [facility] [employer] [facility] Address [address] [place] [address] Care Team Providers Care Credit Professional Name Role Phone Pritesh Chu MD Primary Care Provider [phone] Encounter Details Date Type Department Care Team (Late st Contact Info) Description 08/13/2024 Orders Only [facility] Oncology and Hematology - [place] [address] [place] [address] [address] [place] [address] Christopher Meeks MD [address] [facility] [address] [place] [address] Malignant melanoma of lower extremity, [...] laterality documented in this encounter Care Teams Credit Professional Relationship Specialty Start Date End Date Pritesh Chu MD [address] [place] [address] PCP - General Family Practice 09/13/23 documented as of this encounter
--- OUTSIDE RECORDS SUMMARY | 2024-10-27 04:00 | XMS_ITS | Encounter Summary ---
Author Organization [facility] [employer] [facility] Address [address] [place] [address] Care Team Providers Care Elevator Constructor Hydraulic Name Role Phone Pritesh Chu MD Primary Care Provider [phone] Encounter Details Date Type Department Care Team (Late st Contact Info) Description 12/21/2023 Abstract [facility] Oncology and Hematology - [place] [address] [place] [address] [address] [place] [address] Christopher Meeks MD [address] [facility] [address] [place] [address] Social History Tobacco Use Types [...] on filedocumented in this encounter Care Teams Elevator Constructor Hydraulic Relationship Specialty Start Date End Date Pritesh Chu MD [address] [place] [address] PCP - General Family Practice 09/13/23 documented as of this encounter
--- OUTSIDE RECORDS SUMMARY | 2024-10-27 04:00 | XMS_ITS | Encounter Summary ---
Author Organization [facility] [employer] [facility] Address [address] [place] [address] Care Team Providers Care Director Patient Name Role Phone Pritesh Chu MD Primary Care Provider [phone] Encounter Details Date Type Department Care Team (Late st Contact Info) Description 03/12/2024 Orders Only [facility] Oncology and Hematology - [place] [address] [facility] [address] [place] [address] Christopher Meeks MD [address] [facility] [address] [place] [address] Malignant melanoma of lower [...] documented in this encounter Care Teams Director Patient Relationship Specialty Start Date End Date Pritesh Chu MD [address] [place] [address] PCP - General Family Practice 09/13/23 documented as of this encounter
--- OUTSIDE RECORDS SUMMARY | 2024-10-27 04:00 | XMS_ITS | Encounter Summary ---
Author Organization [facility] [employer] [facility] Address [address] [place] [address] Care Team Providers Care Portfolio Management Marketing Name Role Phone Pritesh Chu MD Primary Care Provider [phone] Encounter Details Date Type Department Care Team (Late st Contact Info) Description 09/21/2023 Orders Only [facility] Oncology and Hematology - [place] [address] [facility] [address] [place] [address] Christopher Meeks MD [address] [facility] [address] [place] [address] Social History Tobacco Use Types [...] B SURFACE ANTIGEN Routine 09/20/2023 9:22 AM LEVEL VIAL INSPECTOR COMPREHENSIVE METABOLIC PANEL Routine 09/20/2023 8:49 AM LEVEL VIAL INSPECTOR CBC WITH DIFFERENTIAL Routine 09/20/2023 8:37 AM LEVEL VIAL INSPECTOR documented in this encounter Results * HEPATITIS B SURFACE ANTIGEN (09/20/2023 9:22 AM LEVEL VIAL INSPECTOR) Blood Christopher Meeks MD CHEMISTRY ORDERABLES * COMPREHENSIVE METABOLIC PANEL (09/20/2023 8:49 AM LEVEL VIAL INSPECTOR) Blood Christopher Meeks MD CHEMISTRY ORDERABLES * CBC WITH DIFFERENTIAL (09/20/2023 8:37 AM LEVEL VIAL INSPECTOR) Blood Christopher Meeks MD HEMATOLOGY ORDERABLE S documented in this encounter Visit Diagnoses Not on filedocumented in this encounter Care Teams Portfolio Management Marketing Relationship Specialty Start Date End Date Pritesh Chu MD [address] [place] [address] PCP - General Family Practice 09/13/23 documented as of this encounter
--- OUTSIDE RECORDS SUMMARY | 2024-10-27 04:00 | XMS_ITS | Encounter Summary ---
Author Organization [facility] [employer] [facility] Address [address] [place] [address] Care Team Providers Care Bobj Developer Name Role Phone Pritesh Chu MD Primary Care Provider [phone] Reason for Visit * Reason Onset Date Comments PET SCAN APPT 03/21/2024 PET Scan resched uled for 04/03/24 @2pm (130pm arrival) 6hr fast No coffee, no caffine, no sugar 24hrs prior Encounter Details Date Type Department Care Team (Late st Contact Info) Description 03/21/2024 Telephone [facility] Oncology and Hematology - [place] [address] [place] [address] [facility] [address] [place] [address] Christopher Meeks MD [address] [facility] [address] [place] [address] PET SCAN APPT (PET Scan [...] encounter Miscellaneous Notes * Telephone Encounter - [facility] - 03/21/2024 2:30 PM CDT PET Scan rescheduled for 04/03/24 @2pm (130pm arrival) 6hr fast No coffee, no caffine, no sugar 24hrs prior documented in this encounter Plan of Treatment Not on file documented as of this encounter Visit Diagnoses Not on filedocumented in this encounter Care Teams Bobj Developer Relationship Specialty Start Date End Date Pritesh Chu MD [address] [place] [address] PCP - General Family Practice 09/13/23 documented as of this encounter
--- OUTSIDE RECORDS SUMMARY | 2024-10-27 04:00 | XMS_ITS | Encounter Summary ---
Author Organization [facility] [employer] [facility] Address [address] [place] [address] Care Team Providers Care Temperer Name Role Phone Pritesh Chu MD Primary Care Provider [phone] Encounter Details Date Type Department Care Team (Late st Contact Info) Description 12/05/2023 Orders Only [facility] Oncology and Hematology - [place] [address] [place] [address] [address] [place] [address] Christopher Meeks MD [address] [facility] [address] [place] [address] Malignant melanoma of lower extremity, [...] laterality documented in this encounter Care Teams Temperer Relationship Specialty Start Date End Date Pritesh Chu MD [address] [place] [address] PCP - General Family Practice 09/13/23 documented as of this encounter
--- OUTSIDE RECORDS SUMMARY | 2024-10-27 04:00 | XMS_ITS | Encounter Summary ---
Author Organization [facility] [employer] [facility] Address [address] [place] [address] Care Team Providers Care Frog Shaker Name Role Phone Pritesh Chu MD Primary Care Provider [phone] Encounter Details Date Type Department Care Team (Late st Contact Info) Description 05/07/2024 Orders Only [facility] Oncology and Hematology - [place] [address] [facility] [address] [place] [address] Christopher Meeks MD [address] [facility] [address] [place] [address] Malignant melanoma of lower extremity, [...] laterality documented in this encounter Care Teams Frog Shaker Relationship Specialty Start Date End Date Pritesh Chu MD [address] [place] [address] PCP - General Family Practice 09/13/23 documented as of this encounter
--- OUTSIDE RECORDS SUMMARY | 2024-10-27 04:00 | XMS_ITS | Encounter Summary ---
Author Organization [facility] [employer] [facility] Address [address] [place] [address] Care Team Providers Care Senior Partner Name Role Phone Pritesh Chu MD Primary Care Provider [phone] Encounter Details Date Type Department Care Team (Late st Contact Info) Description 11/21/2023 Orders Only [facility] Oncology and Hematology - [place] [address] [place] [address] [address] [place] [address] Christopher Meeks MD [address] [facility] [address] [place] [address] Malignant melanoma of lower extremity, [...] laterality documented in this encounter Care Teams Senior Partner Relationship Specialty Start Date End Date Pritesh Chu MD [address] [place] [address] PCP - General Family Practice 09/13/23 documented as of this encounter
--- OUTSIDE RECORDS SUMMARY | 2024-10-27 04:00 | XMS_ITS | Encounter Summary ---
Author Organization [facility] Address [address] [place] [address] Care Team Providers Care Cold Roll Inspector Name Role Phone Pritesh Chu MD Primary Care Provider [phone] Encounter Details Date Type Department Care Team [...] on filedocumented in this encounter Care Teams Cold Roll Inspector Relationship Specialty Start Date End Date Pritesh Chu MD [address] [place] [address] PCP - General Family Practice 09/13/23 documented as of this encounter
--- OUTSIDE RECORDS SUMMARY | 2024-10-27 04:00 | XMS_ITS | Encounter Summary ---
Author Organization [facility] Address [address] [place] [address] Care Team Providers Care Chief Lifestyle Officer Name Role Phone Pritesh Chu MD Primary Care Provider [phone] Encounter Details Date Type Department Care Team [...] on filedocumented in this encounter Care Teams Chief Lifestyle Officer Relationship Specialty Start Date End Date Pritesh Chu MD [address] [place] [address] PCP - General Family Practice 09/13/23 documented as of this encounter
--- OUTSIDE RECORDS SUMMARY | 2024-10-27 04:00 | XMS_ITS | Encounter Summary ---
Author Organization [facility] [employer] [facility] Address [address] [place] [address] Care Team Providers Care Software Qa System Specialist Name Role Phone Pritesh Chu MD Primary Care Provider [phone] Encounter Details Date Type Department Care Team (Late st Contact Info) Description 07/02/2024 Orders Only [facility] Oncology and Hematology - [place] [address] [facility] [address] [place] [address] Christopher Meeks MD [address] [facility] [address] [place] [address] Malignant melanoma of lower extremity, [...] laterality documented in this encounter Care Teams Software Qa System Specialist Relationship Specialty Start Date End Date Pritesh Chu MD [address] [place] [address] PCP - General Family Practice 09/13/23 documented as of this encounter
--- OUTSIDE RECORDS SUMMARY | 2024-10-27 04:00 | XMS_ITS | Encounter Summary ---
Author Organization [facility] [employer] Address [address] [place] [address] Care Team Providers Care Motor Overhauler Name Role Phone Pritesh Chu MD Primary Care Provider [phone] Encounter Details Date Type Department Care Team (Late st Contact Info) Description 09/28/2023 Orders Only [facility] Oncology and Hematology - [place] [address] [facility] [address] [place] [address] Christopher Meeks MD [address] [facility] [address] [place] [address] Social History Tobacco Use Types [...] JAIME DENNIS THG Routine 09/27/2023 2:52 PM METABOLIC SPECIALIST documented in this encounter Results * PET TUMOR IMG SKB MDTH (09/27/2023 2:52 PM METABOLIC SPECIALIST) Anatomical Region Laterality Modality Other Christopher Meeks MD PE ORDERABLES documented in this encounter Visit Diagnoses Not on filedocumented in this encounter Care Teams Motor Overhauler Relationship Specialty Start Date End Date Pritesh Chu MD [address] [place] [address] PCP - General Family Practice 09/13/23 documented as of this encounter
--- OUTSIDE RECORDS SUMMARY | 2024-10-27 04:00 | XMS_ITS | Encounter Summary ---
Author Organization [facility] Address [address] [place] [address] Care Team Providers Care Structured Cabling Technician Name Role Phone Pritesh Chu MD Primary Care Provider [phone] Encounter Details Date Type Department Care Team [...] on filedocumented in this encounter Care Teams Structured Cabling Technician Relationship Specialty Start Date End Date Pritesh Chu MD [address] [place] [address] PCP - General Family Practice 09/13/23 documented as of this encounter
--- OUTSIDE RECORDS SUMMARY | 2024-10-27 04:00 | XMS_ITS | Encounter Summary ---
Author Organization [facility] [employer] [facility] Address [address] [place] [address] Care Team Providers Care Civil Preparedness Training Officer Name Role Phone Pritesh Chu MD Primary Care Provider [phone] Encounter Details Date Type Department Care Team (Late st Contact Info) Description 01/30/2024 Orders Only [facility] Oncology and Hematology - [place] [address] [place] [address] [address] [place] [address] Christopher Meeks MD [address] [facility] [address] [place] [address] Malignant melanoma of lower extremity, [...] laterality documented in this encounter Care Teams Civil Preparedness Training Officer Relationship Specialty Start Date End Date Pritesh Chu MD [address] [place] [address] PCP - General Family Practice 09/13/23 documented as of this encounter
--- OUTSIDE RECORDS SUMMARY | 2024-10-27 04:00 | XMS_ITS | Encounter Summary ---
Author Organization [facility] [employer] [facility] Address [address] [place] [address] Care Team Providers Care Lei Seller Name Role Phone Pritesh Chu MD Primary Care Provider [phone] Encounter Details Date Type Department Care Team (Late st Contact Info) Description 11/10/2023 Orders Only [facility] Oncology and Hematology - [place] [address] [facility] [address] [place] [address] Christopher Meeks MD [address] [facility] [address] [place] [address] Malignant melanoma of lower extremity, [...] Primary documented in this encounter Care Teams Lei Seller Relationship Specialty Start Date End Date Pritesh Chu MD [address] [place] [address] PCP - General Family Practice 09/13/23 documented as of this encounter
--- OUTSIDE RECORDS SUMMARY | 2024-10-27 04:00 | XMS_ITS | Encounter Summary ---
Author Organization [facility] [employer] [facility] Address [address] [place] [address] Care Team Providers Care Picture Frames Inspector Name Role Phone Pritesh Chu MD Primary Care Provider [phone] Encounter Details Date Type Department Care Team (Late st Contact Info) Description 03/06/2024 Orders Only [facility] Oncology and Hematology - [place] [address] [facility] [address] [place] [address] Christopher Meeks MD [address] [facility] [address] [place] [address] Social History Tobacco Use Types [...] on filedocumented in this encounter Care Teams Picture Frames Inspector Relationship Specialty Start Date End Date Pritesh Chu MD [address] [place] [address] PCP - General Family Practice 09/13/23 documented as of this encounter
--- OUTSIDE RECORDS SUMMARY | 2024-10-27 04:00 | XMS_ITS | Encounter Summary ---
Author Organization [facility] Address [address] [place] [address] Care Team Providers Care Manager Dairy Name Role Phone Pritesh Chu MD Primary Care Provider [phone] Encounter Details Date Type Department Care Team [...] filedocumented in this encounter Care Teams Manager Dairy Relationship Specialty Start Date End Date Pritesh Chu MD [address] [place] [address] PCP - General Family Practice 09/13/23 documented as of this encounter
--- OUTSIDE RECORDS SUMMARY | 2024-10-27 04:00 | XMS_ITS | Encounter Summary ---
Author Organization [facility] Address [address] [place] [address] Care Team Providers Care Band Sawyer Name Role Phone Pritesh Chu MD Primary Care Provider [phone] Reason for Visit * Reason Onset Date Comments Needs Appointment 03/07/2024 Encounter Details Date Type Department Care Team (Late st Contact Info) Description 03/07/2024 Telephone [facility] [address] [facility] [address] [place] [address] [place] [address] [facility] [address] [place] [address] Needs Appointment Social History Tobacco [...] on filedocumented in this encounter Care Teams Band Sawyer Relationship Specialty Start Date End Date Pritesh Chu MD [address] [place] [address] PCP - General Family Practice 09/13/23 documented as of this encounter
--- OUTSIDE RECORDS SUMMARY | 2024-10-27 04:00 | XMS_ITS | Encounter Summary ---
Author Organization [facility] Address [address] [place] [address] Care Team Providers Care Heavy Truck Mechanic Name Role Phone Pritesh Chu MD Primary Care Provider [phone] Encounter Details Date Type Department Care Team [...] filedocumented in this encounter Care Teams Heavy Truck Mechanic Relationship Specialty Start Date End Date Pritesh Chu MD [address] [place] [address] PCP - General Family Practice 09/13/23 documented as of this encounter
--- OUTSIDE RECORDS SUMMARY | 2024-10-27 04:00 | XMS_ITS | Encounter Summary ---
Author Organization [facility] Address [address] [place] [address] Care Team Providers Care Pipe Smoking Machine Offbearer Name Role Phone Pritesh Chu MD Primary Care Provider [phone] Encounter Details Date Type Department Care Team (Late st Contact Info) Description 04/05/2024 Orders Only [facility] Oncology and Hematology - [place] [address] [place] [address] Christopher Meeks MD [address] [facility] [address] [place] [address] Social History Tobacco Use Types [...] on filedocumented in this encounter Care Teams Pipe Smoking Machine Offbearer Relationship Specialty Start Date End Date Pritesh Chu MD [address] [place] [address] PCP - General Family Practice 09/13/23 documented as of this encounter
--- OUTSIDE RECORDS SUMMARY | 2024-10-27 04:00 | XMS_ITS | Encounter Summary ---
Author Organization [facility] Address [address] [place] [address] Care Team Providers Care Chairman And Ceo Name Role Phone Pritesh Chu MD Primary Care Provider [phone] Encounter Details Date Type Department Care Team [...] on filedocumented in this encounter Care Teams Chairman And Ceo Relationship Specialty Start Date End Date Pritesh Chu MD [address] [place] [address] PCP - General Family Practice 09/13/23 documented as of this encounter
--- OUTSIDE RECORDS SUMMARY | 2024-10-27 04:00 | XMS_ITS | Encounter Summary ---
Author Organization [facility] [employer] [facility] Address [address] [place] [address] Care Team Providers Care Expanded Duty Dental Assistant Name Role Phone Pritesh Chu MD Primary Care Provider [phone] Encounter Details Date Type Department Care Team (Late st Contact Info) Description 12/19/2023 Orders Only [facility] Oncology and Hematology - [place] [address] [place] [address] [address] [place] [address] Christopher Meeks MD [address] [facility] [address] [place] [address] Malignant melanoma of lower extremity, [...] laterality documented in this encounter Care Teams Expanded Duty Dental Assistant Relationship Specialty Start Date End Date Pritesh Chu MD [address] [place] [address] PCP - General Family Practice 09/13/23 documented as of this encounter
--- OUTSIDE RECORDS SUMMARY | 2024-10-27 04:00 | XMS_ITS | Encounter Summary ---
Author Organization [facility] [employer] [facility] Address [address] [place] [address] Care Team Providers Care Pigment Supplier Name Role Phone Pritesh Chu MD Primary Care Provider [phone] Encounter Details Date Type Department Care Team (Late st Contact Info) Description 01/16/2024 Orders Only [facility] Oncology and Hematology - [place] [address] [place] [address] [address] [place] [address] Christopher Meeks MD [address] [facility] [address] [place] [address] Malignant melanoma of lower [...] laterality documented in this encounter Care Teams Pigment Supplier Relationship Specialty Start Date End Date Pritesh Chu MD [address] [place] [address] PCP - General Family Practice 09/13/23 documented as of this encounter
--- OUTSIDE RECORDS SUMMARY | 2024-10-27 04:00 | XMS_ITS | Encounter Summary ---
Author Organization [facility] [employer] [facility] Address [address] [place] [address] Care Team Providers Care Plant Maintenance Supervisor Name Role Phone Pritesh Chu MD Primary Care Provider [phone] Encounter Details Date Type Department Care Team (Late st Contact Info) Description 02/13/2024 Orders Only [facility] Oncology and Hematology - [place] [address] [place] [address] [address] [place] [address] Christopher Meeks MD [address] [facility] [address] [place] [address] Malignant melanoma of lower extremity, [...] laterality documented in this encounter Care Teams Plant Maintenance Supervisor Relationship Specialty Start Date End Date Pritesh Chu MD [address] [place] [address] PCP - General Family Practice 09/13/23 documented as of this encounter
--- OUTSIDE RECORDS SUMMARY | 2024-10-27 04:00 | XMS_ITS | Encounter Summary ---
Author Organization [facility] [employer] [facility] Address [address] [place] [address] Care Team Providers Care Watch Commander Name Role Phone Pritesh Chu MD Primary Care Provider [phone] Encounter Details Date Type Department Care Team (Late st Contact Info) Description 09/20/2023 Abstract [facility] Oncology and Hematology - [place] [address] [place] [address] [address] [place] [address] Christopher Meeks MD [address] [facility] [address] [place] [address] Social History Tobacco Use Types [...] on filedocumented in this encounter Care Teams Watch Commander Relationship Specialty Start Date End Date Pritesh Chu MD [address] [place] [address] PCP - General Family Practice 09/13/23 documented as of this encounter
--- OUTSIDE RECORDS SUMMARY | 2024-10-27 04:00 | XMS_ITS | Encounter Summary ---
Author Organization [facility] Address [address] [place] [address] Care Team Providers Care Computer Education Teacher Name Role Phone Pritesh Chu MD Primary Care Provider [phone] Encounter Details Date Type Department Care Team [...] filedocumented in this encounter Care Teams Computer Education Teacher Relationship Specialty Start Date End Date Pritesh Chu MD [address] [place] [address] PCP - General Family Practice 09/13/23 documented as of this encounter
--- OUTSIDE RECORDS SUMMARY | 2024-10-27 04:00 | XMS_ITS | Encounter Summary ---
Author Organization [facility] [employer] [facility] Address [address] [place] [address] Care Team Providers Care Pharmacy Account Director Name Role Phone Pritesh Chu MD Primary Care Provider [phone] Encounter Details Date Type Department Care Team (Late st Contact Info) Description 09/20/2023 Orders Only [facility] Oncology and Hematology - [place] [address] [facility] [address] [place] [address] Christopher Meeks MD [address] [facility] [address] [place] [address] Malignant melanoma of lower extremity, [...] test documented in this encounter Care Teams Pharmacy Account Director Relationship Specialty Start Date End Date Pritesh Chu MD [address] [place] [address] PCP - General Family Practice 09/13/23 documented as of this encounter
--- OUTSIDE RECORDS SUMMARY | 2024-10-27 04:00 | XMS_ITS | Encounter Summary ---
Author Organization [facility] [employer] [facility] Address [address] [place] [address] Care Team Providers Care Genetic Technologist Name Role Phone Pritesh Chu MD Primary Care Provider [phone] Reason for Visit * Reason Comments Chemotherapy Encounter Details Date Type Department Care Team (Late st Contact Info) Description 10/04/2023 9:15 AM COMMUNICATION EQUIPMENT MECHANIC Office Visit [facility] Oncology and Hematology - [place] [address] [facility] [address] [place] [address] Christopher Meeks MD [address] [facility] [address] [place] [address] Malignant melanoma of lower extremity, [...] Comments Blood Pressure 139/98 10/04/2023 9:02 AM COMMUNICATION EQUIPMENT MECHANIC Pulse 81 10/04/2023 9:01 AM COMMUNICATION EQUIPMENT MECHANIC Temperature 36.2 ??C (97.2 ??F) 10/04/2023 9:01 AM CS T Respiratory Rate 16 10/04/2023 9:01 AM COMMUNICATION EQUIPMENT MECHANIC Oxygen Saturation 98% 10/04/2023 9:01 AM COMMUNICATION EQUIPMENT MECHANIC Inhaled Oxygen Concentration - - Weight 131.6 kg (290 lb 3.2 oz) 10/04/2023 9:01 AM COMMUNICATION EQUIPMENT MECHANIC Height - - Body Mass Index 45.45 09/13/2023 8:48 AM COMMUNICATION EQUIPMENT MECHANIC documented in this encounter Progress Notes * [...] a tobacco/nicotine user. 10/04/2023 Christopher Meeks MD UNICATION EQUIPMENT MECHANIC documented in this encounter Plan of Treatment Not on file documented as of this encounter Visit Diagnoses Diagnosis Malignant melanoma of lower extremity, unspecified laterality- Primary documented in this encounter Care Teams Genetic Technologist Relationship Specialty Start Date End Date Pritesh Chu MD [address] [place] [address] PCP - General Family Practice 09/13/23 documented as of this encounter
--- OUTSIDE RECORDS SUMMARY | 2024-10-27 04:00 | XMS_ITS | Encounter Summary ---
Author Organization [facility] [employer] [facility] Address [address] [place] [address] Care Team Providers Care Manager Of International Name Role Phone Pritesh Chu MD Primary Care Provider [phone] Encounter Details Date Type Department Care Team (Late st Contact Info) Description 06/18/2024 Orders Only [facility] Oncology and Hematology - [place] [address] [place] [address] [address] [place] [address] Christopher Meeks MD [address] [facility] [address] [place] [address] Malignant melanoma of lower extremity, [...] documented in this encounter Care Teams Manager Of International Relationship Specialty Start Date End Date Pritesh Chu MD [address] [place] [address] PCP - General Family Practice 09/13/23 documented as of this encounter
--- OUTSIDE RECORDS SUMMARY | 2024-10-27 04:00 | XMS_ITS | Encounter Summary ---
Author Organization [facility] [employer] [facility] Address [address] [place] [address] Care Team Providers Care Back Roll Lathe Operator Name Role Phone Pritesh Chu MD Primary Care Provider [phone] Reason for Visit * Reason Onset Date Comments PET Scan info 09/21/2023 LVM about resche duled PET Scan appt.09/27/23 @ 2pm (1:30pm arrival)6hr fast, water ok Encounter Details Date Type Department Care Team (Late st Contact Info) Description 09/21/2023 Telephone [facility] Oncology and Hematology - [place] [address] [place] [address] [facility] 200 [place] [address] Christopher Meeks MD [address] [facility] [address] [place] [address] PET Scan info (LVM about [...] 2pm (1:30pm arrival) 6hr fast, water ok KER OUT documented in this encounter Plan of Treatment Not on file documented as of this encounter Visit Diagnoses Not on filedocumented in this encounter Care Teams Back Roll Lathe Operator Relationship Specialty Start Date End Date Pritesh Chu MD [address] [place] [address] PCP - General Family Practice 09/13/23 documented as of this encounter
--- OUTSIDE RECORDS SUMMARY | 2024-10-27 04:00 | XMS_ITS | Encounter Summary ---
Author Organization [facility] Address [address] [place] [address] Care Team Providers Care Vacuum Bottle Assembler Name Role Phone Pritesh Chu MD Primary Care Provider [phone] Encounter Details Date Type Department Care Team [...] on filedocumented in this encounter Care Teams Vacuum Bottle Assembler Relationship Specialty Start Date End Date Pritesh Chu MD [address] [place] [address] PCP - General Family Practice 09/13/23 documented as of this encounter
--- OUTSIDE RECORDS SUMMARY | 2024-10-27 04:00 | XMS_ITS | Encounter Summary ---
Author Organization [facility] Address [address] [place] [address] Care Team Providers Care General Warehouse Associate Name Role Phone Pritesh Chu MD Primary Care Provider [phone] Encounter Details Date Type Department Care Team [...] on filedocumented in this encounter Care Teams General Warehouse Associate Relationship Specialty Start Date End Date Pritesh Chu MD [address] [place] [address] PCP - General Family Practice 09/13/23 documented as of this encounter
--- OUTSIDE RECORDS SUMMARY | 2024-10-27 04:00 | XMS_ITS | Encounter Summary ---
Author Organization [facility] Address [address] [place] [address] Care Team Providers Care Coach Mechanic Name Role Phone Pritesh Chu MD Primary Care Provider [phone] Encounter Details Date Type Department Care Team [...] on filedocumented in this encounter Care Teams Coach Mechanic Relationship Specialty Start Date End Date Pritesh Chu MD [address] [place] [address] PCP - General Family Practice 09/13/23 documented as of this encounter
--- OUTSIDE RECORDS SUMMARY | 2024-10-27 04:00 | XMS_ITS | Encounter Summary ---
Author Organization [facility] [employer] [facility] Address [address] [place] [address] Care Team Providers Care Director Hardware Name Role Phone Pritesh Chu MD Primary Care Provider [phone] Encounter Details Date Type Department Care Team (Late st Contact Info) Description 07/16/2024 Orders Only [facility] Oncology and Hematology - [place] [address] [facility] [address] [place] [address] Christopher Meeks MD [address] [facility] [address] [place] [address] Malignant melanoma of lower extremity, [...] documented in this encounter Care Teams Director Hardware Relationship Specialty Start Date End Date Pritesh Chu MD [address] [place] [address] PCP - General Family Practice 09/13/23 documented as of this encounter
--- OUTSIDE RECORDS SUMMARY | 2024-10-27 04:00 | XMS_ITS | Encounter Summary ---
Author Organization [facility] [employer] [facility] Address [address] [place] [address] Care Team Providers Care First Aid Attendant Name Role Phone Pritesh Chu MD Primary Care Provider [phone] Encounter Details Date Type Department Care Team (Late st Contact Info) Description 03/26/2024 Orders Only [facility] Oncology and Hematology - [place] [address] [facility] [address] [place] [address] Christopher Meeks MD [address] [facility] [address] [place] [address] Malignant melanoma of lower extremity, [...] laterality documented in this encounter Care Teams First Aid Attendant Relationship Specialty Start Date End Date Pritesh Chu MD [address] [place] [address] PCP - General Family Practice 09/13/23 documented as of this encounter
--- OUTSIDE RECORDS SUMMARY | 2024-10-27 04:00 | XMS_ITS | Encounter Summary ---
Author Organization [facility] Address [address] [place] [address] Care Team Providers Care Master Steam Yacht Name Role Phone Pritesh Chu MD Primary Care Provider [phone] Encounter Details Date Type Department Care Team [...] filedocumented in this encounter Care Teams Master Steam Yacht Relationship Specialty Start Date End Date Pritesh Chu MD [address] [place] [address] PCP - General Family Practice 09/13/23 documented as of this encounter
--- OUTSIDE RECORDS SUMMARY | 2024-10-27 04:00 | XMS_ITS | Encounter Summary ---
Author Organization [facility] [employer] [facility] Address [address] [place] [address] Care Team Providers Care Beef Pusher Name Role Phone Pritesh Chu MD Primary Care Provider [phone] Encounter Details Date Type Department Care Team (Late st Contact Info) Description 10/10/2023 Orders Only [facility] Oncology and Hematology - [place] [address] [place] [address] [address] [place] [address] Christopher Meeks MD [address] [facility] [address] [place] [address] Malignant melanoma of lower extremity, [...] Primary documented in this encounter Care Teams Beef Pusher Relationship Specialty Start Date End Date Pritesh Chu MD [address] [place] [address] PCP - General Family Practice 09/13/23 documented as of this encounter
--- OUTSIDE RECORDS SUMMARY | 2024-10-27 04:01 | XMS_ITS | Encounter Summary ---
Author Organization [employer] [facility] Address [address] [place] [address] [address] [place] [address] Phone Care Team Providers Care Banking Paralegal Name Role Phone Pritesh Chu MD Primary Care Provider [phone] Encounter Details Date Type Department Care Team (Late st Contact Info) Description 07/31/2024 Documentation Only [facility] [address] [facility] [address] [place] [address] Urbano Quiñonez MD [address] [place] [address] [address] [place], [place] [id number] Social History Tobacco Use Types Packs/Day Years [...] on filedocumented in this encounter Care Teams Banking Paralegal Relationship Specialty Start Date End Date Pritesh Chu MD [address] [place] [address] PCP - General Family Medicine 07/29/24 documented as of this encounter
--- OUTSIDE RECORDS SUMMARY | 2024-10-27 04:01 | XMS_ITS | Encounter Summary ---
Author Organization [employer] [facility] Address [address] [place] [address] [address] [place] [address] Phone Care Team Providers Care Bus And Rail Operator Name Role Phone Pritesh Chu MD Primary Care Provider [phone] Encounter Details Date Type Department Care Team (Late st Contact Info) Description 08/01/2024 Documentation Only [place] [employer] [facility] [address] [facility] [address] [place] [address] Urbano Quiñonez MD [address] [place] [address] [address] [place], [place] [id number] Social History Tobacco Use Types Packs/Day Years [...] in this encounter Care Teams Bus And Rail Operator Relationship Specialty Start Date End Date Pritesh Chu MD [address] [address] PCP - General Family Medicine 07/29/24 documented as of this encounter
--- OUTSIDE RECORDS SUMMARY | 2024-10-27 04:01 | XMS_ITS | Encounter Summary ---
Author Organization [facility] [employer] [facility] Address [address] [place] [address] Phone Care Team Providers Care Car Salesperson Name Role Phone Pritesh Chu MD Primary Care Provider [phone] Encounter Details Date Type Department Care Team (Late st Contact Info) Description 08/07/2024 Patient Outreach - [facility] [address] [facility] [address] [place] [address] Letty Garcia [address] [address] [facility] [address] [place] [address] Social History Tobacco Use Types [...] 14 calendar days:: Home Discharging Facility: [facility] Discharge diagnosis: N17.9, K52.9, C43.9 Date of [...] filedocumented in this encounter Care Teams Car Salesperson Relationship Specialty Start Date End Date Pritesh Chu MD [address] [place] [address] PCP - General Family Medicine 07/29/24 documented as of this encounter
--- OUTSIDE RECORDS SUMMARY | 2024-10-27 04:01 | XMS_ITS | Encounter Summary ---
Author Organization [facility] Address [address] [place] [address] Care Team Providers Care Household Personal Assistant Name Role Phone Pritesh Chu MD Primary Care Provider [phone] Reason for Referral * Eval and Treat (Routine) - Closed Specialty Diagnoses / Procedures Referred By Contac t Referred To Contact Surgery Diagnoses Malignant melanoma of lower extremity, unspecified laterality Procedures IN OFFICE/OUTPATIENT ESTABLISHED MOD MDM 30-39 MIN IN OFFICE/OUTPATIENT NEW MODERATE MDM 45-59 MINUTES Christopher Meeks MD [address] [place] [phone] Maikol Alonso MD NO ADDRESS ON FILE Referral ID Status Reason Start Date Expiration Date V isits Requested Visits Authorized [id number] Closed [facility] CTS 09/13/2023 09/12/2024 1 1 ORT STATION ATTENDANT * Eval and Treat (Routine) - Closed Specialty Diagnoses / Procedures Referred By Contac t Referred To Contact Oncology Diagnoses Malignant melanoma of lower extremity, unspecified laterality Procedures IN OFFICE/OUTPATIENT ESTABLISHED MOD MDM 30-39 MIN IN OFFICE/OUTPATIENT NEW MODERATE MDM 45-59 MINUTES Christopher Meeks MD [address] [place] [phone] Referral ID Status Reason Start Date Expiration Date V isits Requested Visits Authorized [id number] Closed [facility] CTS 09/13/2023 09/13/2024 1 1 ORT STATION ATTENDANT Reason for Visit * Reason Comments Establish Care Encounter Details Date Type Department Care Team (Late st Contact Info) Description 09/13/2023 8:30 AM COMFORT STATION ATTENDANT Office Visit [facility] Oncology and Hematology - [place] [address] [facility] [address] [place] [address] Christopher Meeks MD [address] [facility] [address] [place] [address] Malignant melanoma of lower extremity, [...] Comments Blood Pressure 144/91 09/13/2023 8:50 AM COMFORT STATION ATTENDANT Pulse 88 09/13/2023 8:48 AM COMFORT STATION ATTENDANT Temperature 36.5 ??C (97.7 ??F) 09/13/2023 8:48 AM CS T Respiratory Rate 10 09/13/2023 8:48 AM COMFORT STATION ATTENDANT Oxygen Saturation 100% 09/13/2023 8:48 AM COMFORT STATION ATTENDANT Inhaled Oxygen Concentration - - Weight 129.3 kg (285 lb) 09/13/2023 8:48 AM COMFORT STATION ATTENDANT Height 170.2 cm (5' 7 ) 09/13/2023 8:48 AM COMFORT STATION ATTENDANT Body Mass Index 44.64 09/13/2023 8:48 AM COMFORT STATION ATTENDANT documented in this encounter Progress Notes [...] dysuria; no frequency; no hesitancy; no hematuria FAST FOOD WORKER: Musculosketetal: Patient did not mention bone pain; [...] of the total time spent counseling patient [id number]. CC:?Requesting Physician Jonel De MD Primary Care Physician Pritesh Chu MD ORT STATION ATTENDANT documented in this encounter Plan of Treatment [...] Primary documented in this encounter Care Teams Household Personal Assistant Relationship Specialty Start Date End Date Pritesh Chu MD [address] [place] [phone] PCP - General Family Practice 09/13/23 documented as of this encounter
--- OUTSIDE RECORDS SUMMARY | 2024-10-27 04:01 | XMS_ITS | Encounter Summary ---
Author Organization [employer] [facility] Address [address] [place] [address] [address] [place] [address] Phone Care Team Providers Care News Video Editor Name Role Phone Pritesh Chu MD Primary Care Provider [phone] Encounter Details Date Type Department Care Team (Late st Contact Info) Description 08/08/2024 Documentation Only [employer] [facility] [address] [facility] [address] [place] [address] Urbano Quiñonez MD [address] [place] [address] [address] [place], [place] [id number] Social History Tobacco Use Types Packs/Day Years [...] on filedocumented in this encounter Care Teams News Video Editor Relationship Specialty Start Date End Date Pritesh Chu MD [address] [place] [address] PCP - General Family Medicine 07/29/24 documented as of this encounter
--- OUTSIDE RECORDS SUMMARY | 2024-10-27 04:01 | XMS_ITS | Encounter Summary ---
Author Organization [facility] [employer] [facility] , [facility] Address [address] [place] [phone] Phone Care Team Providers Care Farm Specialist Name Role Phone Pritesh Chu MD Primary Care Provider [phone] Encounter Details Date Type Department Care Team (Late st Contact Info) Description 08/06/2024 Patient Outreach - TCM [place] [facility] [address] [facility] [address] [place] [address] Letty Garcia [address] [place] [address] Social History Tobacco Use Types [...] on filedocumented in this encounter Care Teams Farm Specialist Relationship Specialty Start Date End Date Pritesh Chu MD [address] [place] [address] PCP - General Family Medicine 07/29/24 documented as of this encounter
--- OUTSIDE RECORDS SUMMARY | 2024-10-27 04:01 | XMS_ITS | Encounter Summary ---
Author Organization [facility] , [facility] Address [address] [place] [phone] Phone Care Team Providers Care Civil Division Commander Deputy Sheriff Name Role Phone Pritesh Chu MD Primary Care Provider [phone] Encounter Details Date Type Department Care Team (Late st Contact Info) Description 08/02/2024 Patient Outreach - TCM [place] [facility] [address] [facility] [address] [place] [address] [facility] [address] [place] [address] Social History Tobacco Use Types [...] Call Status: No answer - second attempt ([facility] 08.02.24) documented in this encounter Plan of Treatment Not on file documented as of this encounter Visit Diagnoses Not on filedocumented in this encounter Care Teams Civil Division Commander Deputy Sheriff Relationship Specialty Start Date End Date Pritesh Chu MD [address] [place] [address] PCP - General Family Medicine 07/29/24 documented as of this encounter
--- OUTSIDE RECORDS SUMMARY | 2024-10-27 04:01 | XMS_ITS | Clinical Summary ---
Author Organization [facility] Address [address] [place] [address] Care Team Providers Care Athletic Trainer Name Role Phone Pritesh Chu MD Primary Care Provider Encounters Date Type Department Care Team Description 08/23/2024 Travel 08/08/2024 Documentation Only [facility], [address] [phone] Urbano Quiñonez MD 08/07/2024 Patient Outreach - TCM [facility], [address] [phone] Letty Garcia 08/06/2024 Patient Outreach - TCM [facility], [address] [phone] Letty Garcia 08/02/2024 Patient Outreach - TCM [facility], [address] [address] Letty Garcia 08/01/2024 Documentation Only [facility], [address] [phone] Urbano Quiñonez MD 08/01/2024 Patient Outreach - TCM [facility], [address] [address] Letty Garcia 07/31/2024 Documentation Only [facility], [place] [id number] [address] Urbano Quiñonez MD from Last 3 Months [...] 8.7 8.7 - 10.7 mg/dL eGFR Non-Afr Faroese 60 Total Bilirubin 0.50 MG/DL ALT (SGPT) 107(H) U/L AST (SGOT) 27 U/L Alkaline Phosphatase 56 U/L 08/24/2024 Historical Provider LAB BLOOD ORDERABLES Susan l Result from Last [address] [place] [address] MEDIC (FORMERLY [employer] ) ([id number]) Care Teams Athletic Trainer Relationship Specialty Start Date End Date Pritesh Chu MD [address] [address] PCP - General Family Medicine 07/29/24
--- OUTSIDE RECORDS SUMMARY | 2024-10-27 04:01 | XMS_ITS | Encounter Summary ---
Author Organization [facility] Facility Address [address] [place] [address] Care Team Providers Care Steam Heating Installer Name Role Phone Pritesh Chu MD Primary Care Provider [phone] Encounter Details Date Type Department Care Team [...] on filedocumented in this encounter Care Teams Steam Heating Installer Relationship Specialty Start Date End Date Pritesh Chu MD [address] [place] [address] PCP - General Family Medicine 07/29/24 documented as of this encounter
--- OUTSIDE RECORDS SUMMARY | 2024-10-27 04:01 | XMS_ITS | Encounter Summary ---
Author Organization [facility] [employer] [facility] , [facility] Address [address] [place] [address] Phone Care Team Providers Care Blemish Remover Name Role Phone Pritesh Chu MD Primary Care Provider [phone] Encounter Details Date Type Department Care Team (Late st Contact Info) Description 08/01/2024 Patient Outreach - TCM [place] [facility] [address] [facility] [address] [place] [address] Letty Garcia [address] [place] [address] Social History Tobacco Use Types [...] on filedocumented in this encounter Care Teams Blemish Remover Relationship Specialty Start Date End Date Pritesh Chu MD [address] [place] [address] PCP - General Family Medicine 07/29/24 documented as of this encounter
[2024-10-27 05:41] LABS: Basophils Percent Auto 0.1 % (0.2-1.2); Eosinophils Absolute Auto 0.1 K/mm3 (0-0.3); Eosinophils Percent Auto 1.8 % (0-4.4); Hematocrit 39.4 % (37.0-47.0); Hemoglobin 13.6 g/dL (12.0-15.0); Immature Granulocyte Absolute 0.02 K/mm3 (0.00-0.031); Immature Granulocyte Percent A 0.3 % (0-0.5); Lymphocytes Absolute Auto 2.36 K/mm3 (0.9-3.2); Lymphocytes Percent Auto 30.5 % (18.3-44.2); Mean Corpuscular HGB Conc 34.5 g/dl (32-36); Mean Corpuscular Hemoglobin 32.6 pg (26-34); Mean Corpuscular Volume 94.5 fl (80-100); Mean Platelet Volume 9.9 fl (7.4-10.4); Monocytes Absolute Auto 0.7 K/mm3 (0.1-0.6); Monocytes Percent Auto 8.4 % (2.6-8.5); Neutrophils Absolute Auto 4.6 K/mm3 (1.3-6.7); Neutrophils Percent Auto 58.9 % (45.5-73.1); Platelet Count Result 318 k/mm3 (150-375); Red Blood Count 4.17 M/mm3 (4.2-5.4); White Blood Count 7.8 K/mm3 (4.5-10.0)
[2024-10-27] MEDS: LEVOTHYROXINE SODIUM 100 MCG TABLET PO (05:56)
[2024-10-27 06:01] LABS: Alanine Aminotransferase 21 U/L (6-35); Albumin Level 4.1 g/dL (3.5-5.1); Alkaline Phosphatase 51 U/L (38-126); Anion Gap 4 mmol/L (4-12); Aspartate Amino Transferase 18 U/L (14-36); Bilirubin,Total 0.4 mg/dL (0.2-1.3); Blood Urea Nitrogen 14 mg/dL (7-17); Calcium 9.9 mg/dL (8.4-10.2); Carbon Dioxide 28 mmol/L (22-30); Chloride 104 mmol/L (98-107); Estimated CRCL calculation 101 ml/min; Estimated Glomerular Filt Rate > 60; Glucose 92 mg/dL (65-110); Potassium 3.9 mmol/L (3.4-5.0); Sodium 136 mmol/L (137-145)
[2024-10-27 06:15] LABS: Lipase 3479 U/L (23-300)
[2024-10-27 09:30] VITALS: BP 154/96; PULSE 98; RESP 16; TEMP 36.7; O2SAT 99
[2024-10-27] MEDS: POTASSIUM CHLORIDE 20 MEQ ER TABLET PO (09:35)
[2024-10-27] MEDS: [UNRECOGNIZED DRUG - OTHER] 45 EACH PO (09:35)
[2024-10-27] MEDS: PANTOPRAZOLE 40 MG TABLET PO (09:35)
[2024-10-27] MEDS: CITALOPRAM HYDROBROMIDE 10 MG TABLET PO (09:35)
[2024-10-27] MEDS: predniSONE 20 MG TABLET PO (09:35)
[2024-10-27] MEDS: SULFAMETHOXAZOLE/TRIMETHOPRIM 800/160 MG DS TABLET 1 TAB PO (09:35)
[2024-10-27] MEDS: lisinopriL 20 MG TABLET PO (09:35)
[2024-10-27] MEDS: HYDROcodone/acetaminophen (*CRX) 5-325 MG TABLET 1 TAB PO (09:41)
[2024-10-27 09:53] VITALS: BP 160/96
[2024-10-27 12:00] VITALS: BP 133/74; PULSE 86; RESP 16; TEMP 36.8; O2SAT 99
--- NOTE | 2024-10-27 12:57 | P.DS_ITS ---
DS: Admitting Diagnosis Discharge Date 10/27/24 Admitting Diagnosis Pancreatitis Metastatic melanoma Hypothyroidism GERD Depression DS: Summary Hospital Course Reason for hospitalization: Pancreatitis Metastatic melanoma Hypothyroidism GERD Depression Hospital Course: This is a 24-year-old female who presented to the hospital on 10/21/2024 with abdominal pain. Patient has been recently started on Mektovi and Braftovi by her oncology team. workup in the hospital included a abdomen/ pelvis CT which showed small pericardial effusion, hepatomegaly, acute interstitial pancreatitis, pancreatic duct dilatation without obstructing stone or mass, mild urinary bladder wall thickening reflecting cystitis, left inguinal lymphadenopathy. Patient had MRI with MRCP which showed acute interstitial pancreatitis, no choledocholithiasis, small pleural effusion. Her lipase ranged between 2957-2550, however has remained asymptomatic. She is able to tolerate food and fluid without any abdominal pain, nausea, vomiting. Patient was seen by GI and will follow-up with the patient on an outpatient basis 3-4 weeks. She is stable for discharge at this time Final diagnosis: Pancreatitis Status at Discharge Cognitive/behavioral status at discharge: Alert oriented x4 Functional status at discharge: independent ambulation Overall status at discharge: patient is progressing back to baseline Time Spent with Patient Time attestation: Total time spent providing and/or coordinating discharge services: Time spent: Greater than 30 minutes Exam Narrative: General: In no acute distress, well nourished Head: atraumatic, no encephalopathy Eyes:PERRLA, sclera clear ENT: moist mucous membranes, nasal passages clear Neck: supple, no JVD, no adenopathy, trachea midline Cardiac: Normal S1 and S2. No murmur, gallops or friction rubs, peripheral pulses intact. Respiratory: Lungs clear to auscultation, no adventitious lung sounds, currently on room air Gastrointestinal: soft, non-distended, moderate tenderness mid abdomen epigastric area, normoactive bowel sounds. : voiding without difficulty. Extremities: moves all extremities well, no edema, good ROM, strength 5/5 Skin: Scar tissue on top of will put, left branham scab Neuro: Alert and oriented x4, cranial nerves intact, no neuro deficits. Psych: normal mood, normal affect, interactive DS: Data Data Completed and Pending Completed studies during hospitalization: Abdomen/pelvis CT MRCP Pending studies at discharge: None Labs on day of discharge: Labs from last 24 hours 10/27/24 05:21 WBC 7.8 RBC 4.17 L Hgb 13.6 Hct 39.4 MCV 94.5 MCH 32.6 MCHC 34.5 RDW 12.0 Plt Count 318 MPV 9.9 Immature Gran % (Auto) 0.3 Neut % (Auto) 58.9 Lymph % (Auto) 30.5 [place] % (Auto) 8.4 Eos % (Auto) 1.8 Baso % (Auto) 0.1 L Lymph # (Auto) 2.36 [place] # (Auto) 0.7 H Eos # (Auto) 0.1 Baso # (Auto) 0.0 Abs Immat Gran (auto) 0.02 Absolute Neuts (auto) 4.6 Absolute Nucleated RBC 0.000 Nucleated RBC % 0.0 Sodium 136 L Potassium 3.9 Chloride 104 Carbon Dioxide 28 Anion Gap 4 BUN 14 Creatinine 1.00 Estim Creat Clear Calc 101 Estimated GFR > 60 Glucose 92 Calcium 9.9 Total Bilirubin 0.4 AST 18 ALT 21 Alkaline Phosphatase 51 Total Protein 7.0 Albumin 4.1 Lipase 3479 H Procedures/Treatments: None Discharge Plan Discharge Attending physician on discharge: Akira Hurtado Consulting providers: Fito Contreras; Lien Casiano; Svetlana Sheth; Nancy Rodriguez; Basia Adler; Trace Burleson V. Discharging Clinician: Sussy Wilson Anticipated Discharge Date/Time: 10/27/24 12:43 Patient Disposition: Home, Self-Care Activity: as tolerated Diet: as tolerated Discharge Instructions: * Follow up with GI in 2-3 weeks * Finish antibiotic even if your feeling better * Follow-up with your primary care doctor in 1 week * You can continue your prednisone, Mektovi, and Braftovi as before is these medications are low risk for causing pancreatitis Patient Instructions: Antibiotic Form, Pancreatitis (DC), Pain Management (DC), MRCP (Magnetic Resonance Cholangiopancreatography) (DC) Patient Language: Citizen Of [place] Stand Alone Forms: General Discharge Information Follow-up/Referrals: Fito Contreras MD [Physician] - 3 Weeks Discharge Medications: New lisinopril 20 mg Tablet 20 mg PO QAM Qty: 30 0RF amoxicillin-pot clavulanate 875-125 mg tablet 1 tablet PO Q12H Qty: 14 0RF Continued citalopram 10 mg tablet 10 mg PO DAILY levothyroxine 100 mcg tablet 100 mcg PO DAILY Braftovi 75 mg capsule 450 mg PO DAILY Mektovi 15 mg tablet 45 mg PO BID prednisone 20 mg tablet 100 mg PO DAILY Rx Instructions: 100 MG DAILY AND 20 MG HS omeprazole 40 mg capsule,delayed release(DR/EC) 40 mg PO DAILY potassium chloride [Klor-Con M20] 20 mEq tablet,ER particles/crystals 20 meq PO DAILY Aurovela 24 Fe 1 mg-20 mcg (24)/75 mg (4) tablet 1 tablet PO DAILY citalopram [Celexa] 10 mg tablet 10 mg PO DAILY Date of admission: 10/22/24 09:27 Primary Care Provider: Pritesh Chu Admitting Provider: Laron Maradiaga Attending physician on admission: Sussy Wilson Condition: Improved Hospitalist MIPS Heart Failure (Exclusion) Patient has history of Heart Transplant or Left Ventricular Assistive Device?: No IF YES, STOP HERE Heart Failure (Qualifier) Patient has current or prior documentation of LVEF less than or equal to 40%, or mod/servere depressed LVSF?: No IF NO, STOP HERE
[2024-10-27 16:00] VITALS: BP 133/96; PULSE 94; RESP 16; TEMP 36.8; O2SAT 98
--- NOTE | 2024-10-27 16:09 | P.PNGI_ITS ---
Progress Note: A&P Assessment and Plan (1) Pancreatitis: Qualifiers: Chronicity: acute Pancreatitis type: unspecified pancreatitis type Acute pancreatitis complication: no infection or necrosis Qualified Code(s): K85.90 - Acute pancreatitis without necrosis or infection, unspecified Code(s): K85.90 - Acute pancreatitis without necrosis or infection, unspecified Status: Inactive Assessment and Plan: mrcp with normal bile duct and GB, interstitial pancreatitis no more pain, tolerating diet she can go home today and follow-up office in 3-4 weeks (2) Nausea and vomiting: Qualifiers: Vomiting type: bilious vomiting Qualified Code(s): R11.14 - Bilious vomiting Code(s): R11.2 - Nausea with vomiting, unspecified Status: Acute Assessment and Plan: resolved (3) Generalized abdominal pain: Code(s): R10.84 - Generalized abdominal pain Status: Acute Assessment and Plan: almost gone (4) Melanoma: Qualifiers: Melanoma location: lower extremity including hip Laterality: left Qualified Code(s): C43.72 - Malignant melanoma of left lower limb, including hip Code(s): C43.9 - Malignant melanoma of skin, unspecified Status: Inactive Assessment and Plan: on oral treatment for melanoma- pain started prior to those medications Subjective Date/time seen: 10/27/24 16:09 Interval history: doing much better, tolerating diet and going home today Review of Systems Review of Systems: All systems reviewed & are unremarkable except as noted in HPI and below Exam Const: General: comfortable and no acute distress Other: obese HENMT: Face/Nose/Sinus: Normal nares present Eyes: General: appearance normal, both eyes and all related structures Neck: Neck: supple Resp: Auscultation: clear to auscultation bilaterally Cardio: Rate: regular rate Rhythm: regular rhythm GI: Inspection: non-distended GI Palp: Yes Soft to palpation, No Tenderness to palpation present (GI) and No Guarding due to palpation present (GI) Auscultation: normal bowel sounds Skin: Other: left foot s/p skin graft Neuro: Speech: normal speech Motor exam (neuro): 5/5 motor strength present throughout Extrem: General: normal to inspection Psych: Mental Status: mental status grossly normal Objective Data Vital Signs Vital Signs: Vital Signs - 24 hr 10/26/24 20:00 10/26/24 20:00 10/26/24 23:42 Temperature 99.4 F 97.5 F L Pulse Rate 70 70 69 Respiratory Rate 16 16 20 Blood Pressure 145/74 H 131/79 Pulse Oximetry 99 99 99 Oxygen Delivery Room Air 10/27/24 04:00 10/27/24 09:30 10/27/24 09:40 Temperature 97.5 F L 98.1 F Pulse Rate 71 98 Respiratory Rate 20 16 Blood Pressure 141/99 H 154/96 H Pulse Oximetry 99 99 Oxygen Delivery Room Air 10/27/24 09:53 10/27/24 12:00 Temperature 98.3 F Pulse Rate 86 Respiratory Rate 16 Blood Pressure 160/96 H 133/74 Pulse Oximetry 99 Oxygen Delivery Intake/Output Intake/Output: Intake & Output 10/24/24 10/25/24 10/26/24 10/27/24 23:59 23:59 23:59 23:59 Intake Total 2080 1550 880 640 Output Total 300 Balance 0 1550 580 640 Meds/Results Medications: Active Medications Generic Name Dose Route Start Last Admin Trade Name Freq PRN Reason Stop Dose Admin Acetaminophen 650 mg 10/21/24 21:38 Acetaminophen 325 Mg Tablet PO Q6H PRN Mild Pain (1-3) or Fever Hydrocodone Bitart/Acetaminophen 1 tab 10/21/24 21:38 10/27/24 09:41 Hydrocodone/Acetaminophen (*Crx) 5-325 Mg Tablet PO 1 tab Q6H PRN Administration Pain Rated 4-6 Citalopram Hydrobromide 10 mg 10/22/24 09:00 10/27/24 09:35 Citalopram Hydrobromide 10 Mg Tablet PO 10 mg DAILY EDWIN Administration Enoxaparin Sodium 40 mg 10/22/24 09:00 10/27/24 09:33 Enoxaparin 40 Mg/0.4 Ml Syringe SUB-Q Not Given DAILY EDWIN Levothyroxine Sodium 100 mcg 10/22/24 06:30 10/27/24 05:56 Levothyroxine Sodium 100 Mcg Tablet PO 100 mcg DAILY@0630 EDWIN Administration Lisinopril 20 mg 10/23/24 12:20 10/27/24 09:35 Lisinopril 20 Mg Tablet PO 20 mg QAM EDWIN Administration Morphine Sulfate 4 mg 10/21/24 22:59 10/26/24 09:41 Morphine Sulfate (*Crx) 4 Mg/Ml Inj IV PUSH 4 mg Q4H PRN Administration Pain Rated 7-10 Home Med [Aurovela 1 tablet 10/22/24 09:00 10/27/24 09:35 24 Fe] 1 Mg-20 Mcg ( PO 11/21/24 08:59 Not Given 24)/75 Mg DAILY EDWIN Non-Formulary Medication 450 mg 10/23/24 21:00 10/26/24 20:46 Encorafenib [Braftovi] PO 11/22/24 20:59 450 mg HS EDWIN Administration Non-Formulary Medication 45 mg 10/23/24 21:00 10/27/24 09:35 Binimetinib [Mektovi] PO 11/22/24 20:59 45 mg 0800,2100 EDWIN Administration Ondansetron HCl 4 mg 10/21/24 21:38 Ondansetron Inj 4 Mg/2 Ml Vial IV PUSH Q6H PRN Nausea And Vomiting Pantoprazole Sodium 40 mg 10/22/24 09:00 10/27/24 09:35 Pantoprazole 40 Mg Tablet PO 40 mg Q12HR EDWIN Administration Potassium Chloride 20 meq 10/22/24 09:00 10/27/24 09:35 Potassium Chloride 20 Meq Er Tablet PO 20 meq DAILY EDWIN Administration Prednisone 20 mg 10/23/24 08:00 10/27/24 09:35 Prednisone 20 Mg Tablet PO 20 mg DAILY@0800 EDWIN Administration Trimethoprim/Sulfamethoxazole 1 tab 10/25/24 11:00 10/27/24 09:35 Sulfamethoxazole/Trimethoprim 800/160 Mg Ds Tablet PO 10/31/24 21:01 1 tab Q12HR EDWIN Administration Radiology Results: ITS Impressions MRCP 10/22/24 16:39 IMPRESSION: 1. Acute interstitial pancreatitis. 2. No choledocholithiasis. 3. Small pleural effusions. Labs Labs: Laboratory Results - last 24 hr 10/27/24 05:21 WBC 7.8 RBC 4.17 L Hgb 13.6 Hct 39.4 MCV 94.5 MCH 32.6 MCHC 34.5 RDW 12.0 Plt Count 318 MPV 9.9 Immature Gran % (Auto) 0.3 Neut % (Auto) 58.9 Lymph % (Auto) 30.5 [place] % (Auto) 8.4 Eos % (Auto) 1.8 Baso % (Auto) 0.1 L Lymph # (Auto) 2.36 [place] # (Auto) 0.7 H Eos # (Auto) 0.1 Baso # (Auto) 0.0 Abs Immat Gran (auto) 0.02 Absolute Neuts (auto) 4.6 Absolute Nucleated RBC 0.000 Nucleated RBC % 0.0 Sodium 136 L Potassium 3.9 Chloride 104 Carbon Dioxide 28 Anion Gap 4 BUN 14 Creatinine 1.00 Estim Creat Clear Calc 101 Estimated GFR > 60 Glucose 92 Calcium 9.9 Total Bilirubin 0.4 AST 18 ALT 21 Alkaline Phosphatase 51 Total Protein 7.0 Albumin 4.1 Lipase 3479 H
== END 2024-10-27 17:41 | disposition home or self-care (01) | DRG 439 ==
PROVIDERS: Internal Medicine; Internal Medicine Gastroenterology; Nurse Practitioner Family; Physician Assistant; Admitting Provider Internal Medicine; PCP Family Medicine; Visit Provider Nurse Practitioner Acute Care
DX: K85.90 Acute pancreatitis without necrosis or infection, unspecified (principal); C79.9 Secondary malignant neoplasm of unspecified site; C43.72 Malignant melanoma of left lower limb, including hip; E03.9 Hypothyroidism, unspecified; K21.9 Gastro-esophageal reflux disease without esophagitis; K76.0 Fatty (change of) liver, not elsewhere classified; F32.A Depression, unspecified; Z87.891 Personal history of nicotine dependence
CPT/HCPCS: 36415; 74183; 76376; 80048; 80053; 83690; 83735; 84132; 84478; 85025; 85027; 86301; 87040; 96372; 96374; 96375; A9270; A9577; G0378; G0379; J2270; J7120; J7512

== ENCOUNTER 2024-12-06 13:18 | Outpatient (CLI) | payer OTHER, SELFPAY ==
--- NOTE | ~2024-12-06 | XR_ITS ---
EXAM: XR thoracic spine 3V DATE: 12/06/2024 13:44 HISTORY: M54.9 - Dorsalgia, unspecified, history of malignant melanoma. COMPARISON: None available. FINDINGS: Vertebral body alignment intact. Vertebral body heights preserved. No disc space narrowing . No traumatic malalignment or fracture. Visualized lung parenchyma is clear. Right chest implanted p ort, tip terminating at the cavoatrial junction IMPRESSION: Normal thoracic spine radiograph findings. If pain persists, consider MR of the thoracic spine or bone scanning, given the history of malignant melanoma. Reviewed, dictated and finalized at location K. LOPMENT ASSOCIATE IMPRESSION: Normal thoracic spine radiograph findings. If pain persists, consid er MR of the thoracic spine or bone scanning, given the history of malignant me lanoma.
--- NOTE | ~2024-12-06 | XR_ITS ---
EXAM: XR lumbar spine 2-3V DATE: 12/06/2024 13:44 HISTORY: M54.9 - Dorsalgia, unspecified. History of malignant melanoma. COMPARISON: CT abdomen pelvis 10/21/2024 and 06/27/2024. FINDINGS: 5 nonrib-bearing lumbar-type vertebral bodies. Pedicles intact. Normal vertebral body alig nment. Vertebral body heights preserved. Disc spaces maintained. Normal facets and posterior elements . No fracture or dislocation. IMPRESSION: Normal lumbar spine radiograph findings. If pain persists, consider bone scanning or MRI of the lumbar spine without and with contrast. Reviewed, dictated and finalized at location K. MACHINIST
--- OUTSIDE RECORDS SUMMARY | 2024-12-06 14:02 | XMS_ITS | Encounter Summary ---
Author Organization [facility] Address [address] [place] [address] Care Team Providers Care Metal Wire Technician Name Role Phone Pritesh Chu MD Primary Care Provider [phone] Reason for Visit * Reason Comments Nose Problem Pt states she can fe el a hole in the middle of her septum, has not had any imaging done. * Consultation (Routine) - Authorized Specialty Diagnoses / Procedures Referred By Contross t Referred To Contact Otolaryngology Diagnoses Nasal discomfort Markus Finley MD [address] [facility] [address] [place] [address] Phone: tel: fax: Alisia Camp DO [address] [address] [address] Phone: tel: fax: Referral ID Status Reason Start Date Expiration Date Visits Requested Visits Authorized [id number] Authorized Specialty Services Required 10/09/2024 11/08/2025 5 5 Encounter Details Date Type Department Care Team (Late Contact Info) Description 12/05/2024 1:00 PM CATTLE MANAGER Office Visit [facility] - [facility] [address] [facility] [address] [place] [address] Alisia Camp DO [address] [facility] [address] [place] [address] Nasal septum perforation (Primary Dx); Nasal discomfort Social History Tobacco Use Types Packs/Day Years Used Date Smoking Tobacco: Never Assessed Comments Unknown Sex and Gender Information Value Date Recorded Sex Assigned at Not on file Legal Sex Female 8:41 AM CATTLE MANAGER Gender Identity Not on file Sexual Orientation Not on file documented as of this encounter Last Filed Vital Signs Vital Sign Reading Time Taken Comments Blood Pressure 140/86 12/05/2024 1:02 PM CATTLE MANAGER Pulse 123 12/05/2024 1:02 PM CATTLE MANAGER Temperature - - Respiratory Rate 18 12/05/2024 1:02 PM CATTLE MANAGER Oxygen Saturation 97% 12/05/2024 1:02 PM CATTLE MANAGER Inhaled Oxygen Concentration - - Weight 126.1 kg (278 lb) 12/05/2024 1:02 PM CATTLE MANAGER Height 167.6 cm (5' 6 ) 12/05/2024 1:02 PM CATTLE MANAGER Body Mass Index 44.87 12/05/2024 1:02 PM CATTLE MANAGER documented in this encounter Patient Instructions * Patient Instructions* Alisia Camp DO - 12/05/2024 1:00 PM CATTLE MANAGER Nasal saline spray (Simply saline, Little Remedies, [place], [place]) 2 second sprays or 2 squeezes into each nostril while looking down over the sink, do not need to sniff in 3-4 times daily Humidifier in bedroom over night NO BLOWING, RUBBING, WIPING, OR PICKING Call for referral to Rhinology LE MANAGER documented in this encounter Progress Notes * Alisia Camp DO - 12/05/2024 1:00 PM CST ENT Consult Assessment & Plan: Diagnoses and all orders for this visit: Nasal septum perforation (Primary) Assessment & Plan: Nasal saline spray (Simply saline, Little Remedies, [place], [place]) 2 second sprays or 2 squeezes into each nostril while looking down over the sink, do not need to sniff in 3-4 times daily Humidifier in bedroom over night NO BLOWING, RUBBING, WIPING, OR PICKING Call for referral to Rhinology Nasal discomfort - Ambulatory referral to ENT Reason for Consult: Chief Complaint Patient presents with Nose Problem Pt states she can feel a hole in the middle of her septum, has not had any imaging done. Requesting Provider: Pritesh Chu MD SUBJECTIVE: HPI: Patient Dayanara is a 24 y.o. female with chief complaint of Chief Complaint Patient presents with Nose Problem Pt states she can feel a hole in the middle of her septum, has not had any imaging done. . reported location of complaint was Nose. This compliant quality was reported as constant and has a severity of moderate. The duration of this complaint was the last October. Onset of this problems was October and was associated with digital trauma and nose blowing. FH: Negative for septal perforation OBJECTIVE: MRI Brain: IMPRESSION: No acute infarction. No MRI findings or enhancing lesion to indicate metastatic disease. Abnormally thickened gyrus in the anterior left parietal convexity with a 7 mm subependymal nodule in the posterior body of the right lateral ventricle. Probable radial band in the posteromedial left occipital region. 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 Additional correlation with clinical factors is recommended for confirmation. Minimal left sphenoid sinusitis. THIS IS AN ELECTRONICALLY VERIFIED FINAL REPORT 11/15/2024 3:58 PM - Electronically signed by Vahe Cruz M.D. LC: ADRIANA Review of Systems HENT: Positive for nosebleeds. Physical Exam Constitutional: She is alert and has a normal appearance. She appears well- developed. She appears not distressed. She is cooperative. HENT: Head: Normocephalic and atraumatic. Right Ear: Hearing, tympanic membrane, external ear and ear canal normal. Left Ear: Hearing, tympanic membrane, external ear and ear canal normal. Nose: Mucosal edema present. No rhinorrhea or nasal deformity. Comments: Anterior nasal septum 1 cm perforation, mild fresh blood in the anterior nasal cavity Mouth/Throat: Uvula is midline. Mucous membranes are moist. No oral lesions. Eyes: Pupils are equal, round, and reactive to light. Conjunctivae and lids are normal. Neck: Trachea normal. Cardiovascular: Comments: No edema, no JVD, normal distal perfusion Pulmonary/Chest: Effort normal. No respiratory distress. Musculoskeletal: General: Normal range of motion. Left shoulder: Normal. Cervical back: Full passive range of motion without pain, normal range of motion and neck supple. Lymphadenopathy: She has no cervical adenopathy. Neurological: She is alert and oriented to person, place, and time. No cranial nerve deficit. Coordination and gait normal. Skin: Skin is warm and dry. No rash noted. Nails show no clubbing. Psychiatric: Her speech is normal, behavior is normal and behavior is cooperative. Mood, affect, judgment and thought content normal. Vitals reviewed. Examination of the pharynx with use of the laryngeal mirror was not able to be performed due to patient discomfort Neck: no palpable abnormality of submandibular or parotid gland Facial Nerve strength intact and symmetric Alisia Camp DO LE MANAGER documented in this encounter Miscellaneous Notes * Assessment & Plan Note - Alisia Camp DO - 12/05/2024 1:20 PM CATTLE MANAGER Associated Problem(s): Nasal septum perforation Nasal saline spray (Simply saline, Little Remedies, [place], [place]) 2 second sprays or 2 squeezes into each nostril while looking down over the sink, do not need to sniff in 3-4 times daily Humidifier in bedroom over night NO BLOWING, RUBBING, WIPING, OR PICKING Call for referral to Rhinology LE MANAGER documented in this encounter Plan of Treatment Not on file documented as of this encounter Visit Diagnoses Diagnosis Nasal septum perforation- Primary Other diseases of nasal cavity and sinuses Nasal discomfort documented in this encounter Historical Medications * This list may reflect changes made after this encounter. HYDROcodone-acetamin ophen (NORCO) 5-325 mg per tabletIndications:Pa in Take 1 tablet by mouth every 6 (six) hours as needed potassium chloride ER 20 mEq CR tablet Take 1 tablet (20 mEq total) by mouth 2 (two) times a day citalopram (CeleXA) 10 mg tablet Take 1 tablet (10 mg total) by mouth daily prednisoLONE ODT (ORAPRED ODT) 10 mg disintegrating tablet Take by mouth norethindrone ethinyl estradiol (MICROGESTIN 1.530) 1.5-30 mg-mcg tablet per tablet Take 1 tablet by mouth daily levothyroxine (SYNTHROID) 100 mcg tablet Take 1 tablet (100 mcg total) by mouth supervisor typesetting before breakfast omeprazole (PriLOSEC) 40 mg capsule Take 1 capsule (40 mg total) by mouth daily lisinopriL (PRINIVIL,ZESTRIL) 20 mg tablet Take 1 tablet (20 mg total) by mouth daily added in this encounter Orders Outpatient Referral Count Last Ordered Date Fir st Ordered Date AMB REFERRAL TO ENT 12/05/2024 documented in this encounter Care Teams Metal Wire Technician Relationship Specialty Start Date End Date Pritesh Chu MD [address] [place] [address] PCP - General Family Medicine 10/09/24 documented as of this encounter
--- OUTSIDE RECORDS SUMMARY | 2024-12-06 14:02 | XMS_ITS | Patient Health Summary ---
Author Organization [facility] [employer] Address [address] [place] [address] Care Team Providers Care Baggage And Mail Agent Name Role Phone Priya Sprague MD Primary Care Provider [phone] Haja Garcia MD Unavailable Note from [facility],non-owned Affiliates and Associated Physician Practices is amultiple site organization consisting of ambulatory clinics and hospital sitesin [place], [place], [place] and [place]. This disclosure is being madepursuant to the Care Everywhere program and may not contain all information available regarding this patient. Last updated 18.[facility] [employer] Allergies No known active allergies Medications [...] henselae Antibody IgM Negative Neg:<1:10 0 titer [facility] Comment: Results for this test are for research purposes only by the assay's civil division commander deputy sheriff. ??The performance characteristics of this product have not been established. ??Results should not be used as a diagnostic procedure without confirmation of the diagnosis by another medically established diagnostic product or procedure. Blood specimen (specimen) BLOOD SPECIMEN / Unknown 07/26/2016 9:50 AM CDT 07/26/2016 1:00 PM CDT Narrative Resulting Agency Comment [address] ??[facility] [id number] Sudeep Gloria DO LAB - SEROLOGY ORDERABLES [facility] INSURANCE BILL [address] [place] [address] * (ABNORMAL) MYCOPLASMA PNEUMO ANTIBODY IGG/IGM PANEL (07/26/2016 9:50 AM CDT) Pathologist [facility] Mycoplasma pneumoniae Antibody IgG 1,927(H) [...] [facility] [place] [address] ??[place] [id number] Sudeep Gloria DO LAB - SEROLOGY ORDERABLES [facility] INSURANCE BILL [address] [place] [address] * (ABNORMAL) STANLEY-MORAES VIRUS PANEL (07/26/2016 9:50 [...] CDT Narrative Resulting Agency Comment [facility] [place] [address] [facility] ??[facility] [phone] Sudeep Gloria DO LAB - CHEMISTRY ORDERABLES [facility] INSURANCE BILL [address] [place] [address] * CBC W AUTO DIFFERENTIAL (07/26/2016 9:50 [...] PM CDT Narrative Resulting Agency Comment [facility] [place] [address] [facility] ??[facility] [phone] Sudeep Gloria DO LAB - HEMATOLOG Y ORDERABLES [facility] INSURANCE BILL [address] [place] [address] * (ABNORMAL) COMPREHENSIVE METABOLIC PANEL (07/26/2016 9:50 [...] 1:00 PM CDT Narrative Resulting Agency Comment [facility] [place] [address] ??[facility] [phone] Sudeep Gloria DO LAB - CHEMISTRY ORDERABLES Performing Organization Address City/[facility]/ZIP Co de Phone Number [facility] INSURANCE BILL [address] [place] [address] * TSH (07/26/2016 9:50 AM CDT) TSH 1.690 0.450 - 4.500 uIU/mL [facility] INSURANCE BILL 07/26/2016 9:50 AM CDT 07/26/2016 1:00 PM CDT Narrative Resulting Agency Comment [facility] [address] ??[facility] [phone] Sudeep Gloria DO LAB - CHEMISTRY ORDERABLES Performing Organization Address [facility]/ZIP Co de Phone Number [facility] INSURANCE BILL [address] [place] [address] * (ABNORMAL) LIPID PROFILE (07/26/2016 9:50 AM [...] [facility] [address] ??[facility] [phone] Sudeep Gloria DO LAB - CHEMISTRY ORDERABLES [facility] INSURANCE BILL [address] [place] [address] * (ABNORMAL) STREP A SCREEN - POINT OF CARE (AMB) (09/25/2010 10:33 AM REVIEW SPECIALIST) Strep A Rapid POCT positive NEGATIVE - POSITIVE Strep A Internal Control NEGATIVE - POSITIVE Throat swab (specimen) ENTIRE THROAT (SURFACE REGION OF NECK) / Unknown 09/25/2010 10:33 AM REVIEW SPECIALIST Terrie Anderson MD LAB - POINT OF CARE ORDERABLES * GROSS + MICRO EXAM (07/28/2007 4:30 PM CDT) Result CASE NUMBER [id number] [facility] LAB PATH REPORT Comment: ORDERING PHYSICIAN ??ERIK [...] ??The specimen is serially sectioned, and sales representative marine supplies sections are submitted in cassette A . [...] and interpreted by the attending (teaching) pathologist. Fancy Stitcher ? AD YARBROUGH RESIDENT IN PATHOLOG Mikala Reid M.D. PATHOLOGIST ?Ezekiel Eli M.D. ELECTRONICALLY NEVINEzekiel Sarabia MISCELLANEOUS SAMPLES / Unknown 07/28/2007 4:30 PM CDT 07/31/2007 8:08 AM CDT Historical Provider MD LAB - PATHOLOGY/C YTOLOGY ORDERABLES [facility] LAB PATH REPORT Care Teams Baggage And Mail Agent Relationship Specialty Start Date End Date Priya Sprague MD PCP - General Pediatrics 09/13/14 Haja Garcia MD [address] [facility] [address] [place] [address] PCP - Attributed-[facility] [place] 09/07/23
--- OUTSIDE RECORDS SUMMARY | 2024-12-06 14:02 | XMS_ITS ---
Author Organization [facility] Address [address] [place] [address] Phone Care Team Providers Care Staple Shear Operator Name Role Phone Pritesh Chu MD Primary Care Provider [phone] Markus Finley MD Unavailable [phone] Zander Cha MD Unavailable [facility] Status:Enrolled (Active) Start date:09/24/2024 Enrollment date:09/24/2024 Related social drivers of health:Intimate Partner Violence, Social Connections, Alcohol Use, Tobacco Use, Financial Resource Strain,Depression, Stress, Physical Activity, Food Insecurity, Transportation Needs, Housing Stability, Utilities Continued Care and Services Coordination
--- OUTSIDE RECORDS SUMMARY | 2024-12-06 14:02 | XMS_ITS | Clinical Summary ---
Author Organization [facility] Address [address] [place] [address] Care Team Providers Care Emulsion Operator Name Role Phone Pritesh Chu MD Primary Care Provider [phone] Allergies No known active allergies Medications acetaminophen-c odeine (TYLENOL #2) 300-15 mg tablet Take 1 Tablet by mouth every 6 hours as needed for Pain. 08/25/20 23 Active norethindrn a-e estradiol-iron (Junel FE 11/26, ,) 1 mg-20 mcg (21)/75 mg (7) tablet Take 1 Tablet by mouth daily. Active ondansetron (ZOFRAN ODT) 8 mg Tablet, Rapid DissolveIndicat ions:Malignant melanoma of lower extremity, unspecified laterality (CMS/HCC) Dissolve 1 tablet on top of tongue then swallow with saliva every 8 hours as needed for nausea or vomiting 30 Tablet 1 10/10/20 23 Active lidocaine-prilo mayra (EMLA) 2.5-2.5 % CreamIndication s:Malignant melanoma of lower extremity, unspecified laterality (CMS/HCC) Apply to affected area see administration instructions. 30 Gram 1 10/10/20 23 Active Active Problems No known active problems Encounters Date Type Department Care Team Description 11/29/2024 External Device Data STL ABSTRACTION Provider, Abstract 11/28/2024 External Device Data STL ABSTRACTION Provider, Abstract 11/27/2024 External Device Data STL ABSTRACTION Provider, Abstract 11/05/2024 Orders Only [facility] Oncology and Hematology - [place] [address] [place] [address] Christopher Meeks MD Malignant melanoma of lower extremity, unspecified laterality (CMS/HCC) 10/22/2024 Orders Only [facility] Oncology and Hematology - [place] [address] Christopher Meeks MD Malignant melanoma of lower extremity, unspecified laterality (CMS/HCC) 10/08/2024 Orders Only [facility] Oncology and Hematology - [place] [address] [place] [id number] Christopher Meeks MD Malignant melanoma of lower extremity, unspecified laterality (CMS/HCC) 09/24/2024 Orders Only [facility] Oncology and Hematology - [place] [address] Christopher Meeks MD Malignant melanoma of lower extremity, unspecified laterality (CMS/HCC) 09/10/2024 Orders Only [facility] Oncology and Hematology - [place] [address] Christopher Meeks MD Malignant melanoma of lower extremity, unspecified laterality (CMS/HCC) from Last 3 Months Family History Medical [...] = 0.6 oz pur e alcohol) Comments Unknown Sex and Gender Information Value Date Recorded Sex Assigned at Not on file Legal Sex Female 3:29 PM CDT Gender Identity Not on file Sexual Orientation [...] cm (5' 7 ) 09/13/2023 8:48 AM BIOCHEMISTRY TEACHER Body Mass Index 45.2 09/13/2023 8:48 AM BIOCHEMISTRY TEACHER Plan of Treatment Health Maintenance Due Date Last Done Comments CERVICAL CANCER SCREENING 2021 DTAP/TDAP/TD VACCINES (7 - T d or Tdap) 04/19/2021 04/19/2011, 04/06/2005, 10/16/2001, Additional history exists INFLUENZA VACCINE (#1) 2024 HEPATITIS B VACCINES Completed 01/12/2001, 2000, 2000 HPV VACCINES Completed 04/18/2015, 05/2014, 07/05/[address] [place] [address] [employer] [facility] Care Teams Emulsion Operator Relationship Specialty Start Date End Date Pritesh Chu MD [address] [place] [address] PCP - General Family Practice 09/13/23
--- OUTSIDE RECORDS SUMMARY | 2024-12-06 14:02 | XMS_ITS | Clinical Summary ---
Author Organization [facility] Address [address] [facility] [place] [address] Care Team Providers Care Gi Physician Name Role Phone Priya Sprague MD Primary Care Provider [phone] Haja Garcia MD Unavailable Source Comments [facility],non-owned Affiliates and Associated Physician Practices is amultiple site organization consisting of ambulatory clinics and hospital sitesin [place], [place], [place] and [place]. This disclosure is being madepursuant to the Care Everywhere program and may not contain all information available regarding this patient. Last updated 18.[facility] Allergies No known active allergies Medications Be [...] C SCREENING 04/07/2018 DTAP/TDAP/TD VACCINES (7 - Td or Tdap) 04/19/2021 04/19/2011, 04/06/2005, 10/16/2001, Additional history exists COVID-19 VACCINE ( season) 2024 INFLUENZA VACCINE (#1) 2024 DEPRESSION SCREENING 11/07/2024 ZOSTER VACCINE (1 of 2) 2050 HEPATITIS B VACCINE Completed 01/12/2001, 2000, 2000 HIB VACCINE Completed 10/16/2001, 10/08, 2000, Additional history exists PNEUMOCOCCAL VACCINE Completed 05/08/2002, 01/12/2001, 2000, Additional history exists HPV VACCINE Completed 04/18/2015, 05/2014, 07/05/2014 MENINGOCOCCAL VACCINE Completed 06/22/2016, 014 MENINGOCOCCAL (Group B) VACCINE Aged Out No longer eligible based on patient's age to complete this topic Goals Goal Patient Goal Type Associated Problems [...] Where can I go for more information? [employer] [employer] ( ) www.aap.org HealthyChildren.org www.healthychildren.org U.S. Department of Health and Human Services www.hhs.gov Website and free downloadable taylor for smartphones: http://www.aka-aki networks/ Use safety retraint in car Lifestyle On track( 016 10:41 AM CDT) Kiana Escobar RN Care Teams Gi Physician Relationship Specialty Start Date End Date Priya Sprague MD PCP - General Pediatrics 09/13/14 Haja Garcia MD [address] [facility] [address] [place], [place] [id number] PCP - Attributed-[facility] [employer] [place] 09/07/23
--- OUTSIDE RECORDS SUMMARY | 2024-12-06 14:02 | XMS_ITS | Referral Summary ---
Author Organization [facility] Building [facility] Address [address] [place] [address] Care Team Providers Care Joinery Factory Worker Name Role Phone Pritesh Chu MD Primary Care Provider [phone] Encounters Date Type Department Care Team Description 12/05/2024 1:00 PM BEAR KEEPER Office Visit [facility]NT Special[facility] - [facility] [address] [facility] [address] [place] [address] Alisia Camp DO Nasal septum perforation (Primary Dx); Nasal discomfort 11/15/2024 2:05 PM BEAR KEEPER Ancillary Procedure [facility] Outside Films from Last 3 Months Allergies No known active allergies Medications lisinopriL (PRINIVIL,ZESTRIL) 20 mg tablet Take 1 tablet (20 mg total) by mouth daily Active omeprazole (PriLOSEC) 40 mg capsule Take 1 capsule (40 mg total) by mouth daily Active levothyroxine (SYNTHROID) 100 mcg tablet Take 1 tablet (100 mcg total) by mouth pan shover before breakfast Active norethindrone ethinyl estradiol (MICROGESTIN 1.5/30) 1.5-30 mg-mcg tablet per tablet Take 1 tablet by mouth daily Active prednisoLONE ODT (ORAPRED ODT) 10 mg disintegrating tablet Take by mouth Active citalopram (CeleXA) 10 mg tablet Take 1 tablet (10 mg total) by mouth daily Active potassium chloride ER 20 mEq CR tablet Take 1 tablet (20 mEq total) by mouth 2 (two) times a day Active HYDROcodone-acetam inophen (NORCO) 5-325 mg per tabletIndications: Pain Take 1 tablet by mouth every 6 (six) hours as needed Active Active Problems Problem Noted Date Diagnosed Date Nasal septum perforation 12/05/2024 Assessment & Plan (12/05/2024 1:20 PM BEAR KEEPER): Nasal saline spray (Simply saline, Little Remedies, [place], [place]) 2 second sprays or 2 squeezes into each nostril while looking down over the sink, do not need to sniff in 3-4 times daily Humidifier in bedroom over night NO BLOWING, RUBBING, WIPING, OR PICKING Call for referral to Rhinology Social History Tobacco Use Types Packs/Day Years Used Date Smoking Tobacco: Never Assessed Comments Unknown Sex and Gender Information Value Date Recorded Sex Assigned at Not on file Legal Sex Female 8:41 AM BEAR KEEPER Gender Identity Not on file Sexual Orientation Not on file Last Filed Vital Signs Vital Sign Reading Time Taken Comments Blood Pressure 140/86 12/05/2024 1:02 PM BEAR KEEPER Pulse 123 12/05/2024 1:02 PM BEAR KEEPER Temperature - - Respiratory Rate 18 12/05/2024 1:02 PM BEAR KEEPER Oxygen Saturation 97% 12/05/2024 1:02 PM BEAR KEEPER Inhaled Oxygen Concentration - - Weight 126.1 kg (278 lb) 12/05/2024 1:02 PM BEAR KEEPER Height 167.6 cm (5' 6 ) 12/05/2024 1:02 PM BEAR KEEPER Body Mass Index 44.87 12/05/2024 1:02 PM BEAR KEEPER Plan of Treatment Not on file Procedures Procedure Name Priority Date/Time Associated Diagnosis Comments MRI TRANSFER OF OUTSIDE FILMS Routine 11/15/2024 2:05 PM BEAR KEEPER from Last 3 Months Results * MRI Outside Reference (11/15/2024 2:05 PM BEAR KEEPER) Narrative [facility] - 12/05/2024 2:52 PM BEAR KEEPER This order has been auto-finalized and does not contain a result. us Not In File Miscellaneous IMG MRI PROCEDURES Fin al Result [facility] from Last 3 Months Insurance [facility] Care Teams Joinery Factory Worker Relationship Specialty Start Date End Date Pritesh Chu MD [address] [place] [address] PCP - General Family Medicine 10/09/24
--- OUTSIDE RECORDS SUMMARY | 2024-12-06 14:02 | XMS_ITS | Clinical Summary ---
Author Organization [facility] Facility Address [address] [place] [address] Care Team Providers Care Office Machine Mechanic Name Role Phone Pritesh Chu MD Primary Care Provider [phone] Social History Tobacco Use Types Packs/Day Years [...] Hepatitis B Vaccine Completed 01/12/2001, 2000, [address] [place] [address] [employer] ) ([id number]) Care Teams Office Machine Mechanic Relationship Specialty Start Date End Date Pritesh Chu MD [address] [address] PCP - General Family Medicine 07/29/24
--- OUTSIDE RECORDS SUMMARY | 2024-12-06 14:02 | XMS_ITS | Clinical Summary ---
Author Organization [facility] Address [address] [place] [id number] Care Team Providers Care Glass Cut Off Tender Name Role Phone Pritesh Chu MD Primary Care Provider [phone] Allergies No known active allergies Medications lisinopriL (PRINIVIL,ZESTRIL) 20 mg tablet Take 1 tablet (20 mg total) by mouth daily Active omeprazole (PriLOSEC) 40 mg capsule Take 1 capsule (40 mg total) by mouth daily Active levothyroxine (SYNTHROID) 100 mcg tablet Take 1 tablet (100 mcg total) by mouth medicine and health service manager before breakfast Active norethindrone ethinyl estradiol (MICROGESTIN [...] 12/05/2024 Assessment & Plan (12/05/2024 1:20 PM JAWBONE BREAKER): Nasal saline spray (Simply saline, Little Remedies, [place], [place]) 2 second sprays or 2 squeezes into each nostril while looking down over the sink, do not need to sniff in 3-4 times daily Humidifier in bedroom over night NO BLOWING, RUBBING, WIPING, OR PICKING Call for referral to Rhinology Encounters Date Type Department Care Team Description 12/05/2024 1:00 PM JAWBONE BREAKER Office Visit [facility] - [address] [place] [address] Alisia Camp DO Nasal septum perforation (Primary Dx); Nasal discomfort 11/15/2024 2:05 PM JAWBONE BREAKER Ancillary Procedure [facility] Outside Films from Last 3 Months Social History Tobacco Use Types Packs/Day Years Used Date Smoking Tobacco: Never Assessed Comments Unknown Sex and Gender Information Value Date Recorded Sex Assigned at Not on file Legal Sex Female 8:41 AM JAWBONE BREAKER Gender Identity Not on file Sexual Orientation Not on file Obstetrics History Last Filed Vital Signs Vital Sign Reading Time Taken Comments Blood Pressure 140/86 12/05/2024 1:02 PM JAWBONE BREAKER Pulse 123 12/05/2024 1:02 PM JAWBONE BREAKER Temperature - - Respiratory Rate 18 12/05/2024 1:02 PM JAWBONE BREAKER Oxygen Saturation 97% 12/05/2024 1:02 PM JAWBONE BREAKER Inhaled Oxygen Concentration - - Weight 126.1 kg (278 lb) 12/05/2024 1:02 PM JAWBONE BREAKER Height 167.6 cm (5' 6 ) 12/05/2024 1:02 PM JAWBONE BREAKER Body Mass Index 44.87 12/05/2024 1:02 PM JAWBONE BREAKER Plan of Treatment Health Maintenance Due Date Last Done Comments Cervical Cancer Screening 2000 Depression Screening 2000 Hepatitis C Screening 2000 Pneumococcal vaccine <65 (1 of 2 - PPSV23 or PCV20) 07/03/2002 05/08/2002, 01/12/2001, 2000, Additional history exists Regular Well Visit/Exam 18-64 2018 Zoster Vaccine (1 of 2) 2019 DTaP/Tdap/Td Vaccine (7 - Td or Tdap) 04/19/2021 04/19/2011, 04/06/2005, 10/16/2001, Additional history exists Influenza Vaccine (#1) 2024 Varicella Vaccines Completed 07/05/2014, 07/17/2001 HPV Vaccines Completed 04/18/2015, 05/2014, 07/05/2014 Procedures Procedure Name Priority Date/Time Associated Diagnosis Comments MRI TRANSFER OF OUTSIDE FILMS Routine 11/15/2024 2:05 PM JAWBONE BREAKER from Last 3 Months Results * MRI Outside Reference (11/15/2024 2:05 PM JAWBONE BREAKER) Narrative ANITA - 12/05/2024 2:52 PM JAWBONE BREAKER This order has been auto-finalized and does not contain a result. us Not In File Miscellaneous IMG MRI PROCEDURES Fin al Result RAD_PACS_[facility] from Last 3 Months Insurance [facility] Care Teams Glass Cut Off Tender Relationship Specialty Start Date End Date Pritesh Chu MD [address] [place] [address] PCP - General Family Medicine 10/09/24
--- OUTSIDE RECORDS SUMMARY | 2024-12-06 14:02 | XMS_ITS | Referral Summary ---
Author Organization [facility] Address [address] [address] Care Team Providers Care Rivet Hole Puncher Name Role Phone Priya Sprague MD Primary Care Provider [phone] Haja Garcia MD Unavailable Source Comments [facility],non-owned Affiliates and Associated Physician Practices is amultiple site organization consisting of ambulatory clinics and hospital sitesin [place], [place], [place] and [place]. This disclosure is being madepursuant to the Care Everywhere program and may not contain all information available regarding this patient. Last updated 18.[facility] Allergies No known active allergies Medications Be [...] Where can I go for more information? [place] [employer] ( ) www.aap.org HealthyChildren.org www.healthychildren.org U.S. Department of Health and Human Services www.[employer].gov Website and free downloadable taylor for smartphones: http://www.[employer]/ Use safety retraint in car Lifestyle On track( 016 10:41 AM CDT) No Yohana-Kiana Horn RN Care Teams Rivet Hole Puncher Relationship Specialty Start Date End Date Priya Sprague MD PCP - General Pediatrics 09/13/14 Haja Garcia MD [address] [place] [address] PCP - Attributed-[employer] [employer] [place] 09/07/23
--- OUTSIDE RECORDS SUMMARY | 2024-12-06 14:02 | XMS_ITS | Encounter Summary ---
Author Organization [facility] [employer] [facility] Address [address] [place] [address] Care Team Providers Care Wire Harness Design Engineer Name Role Phone Pritesh Chu MD Primary Care Provider [phone] Encounter Details Date Type Department Care Team (Late st Contact Info) Description 12/21/2023 Abstract [facility] Oncology [facility] H[facility]ology - [place] [address] [place] [address] [address] [place] [address] Christopher Meeks MD [address] [facility] [address] [place] [address] Social History Tobacco Use Types [...] filedocumented in this encounter Care Teams Wire Harness Design Engineer Relationship Specialty Start Date End Date Pritesh Chu MD [address] [place] [address] PCP - General Family Practice 09/13/23 documented as of this encounter
--- OUTSIDE RECORDS SUMMARY | 2024-12-06 14:03 | XMS_ITS | Clinical Summary ---
Author Organization [facility] Address [address] [place] [address] Phone Care Team Providers Care Electroencephalographic Technician Name Role Phone Pritesh Chu MD Primary Care Provider [phone] Markus Finley MD Unavailable [phone] Zander Cha MD Unavailable Allergies No known active allergies Medications diphenoxylate- atropine (LOMOTIL) 2.5-0.025 MG TabletIndicati ons:Metastatic melanoma (HCC) Take 1 Tablet by mouth 4 times daily as needed for Diarrhea. 60 Tablet 2 07/12/20 24 Active ondansetron (ZOFRAN-ODT) 4 MG TABLET DISPERSIBLE Take 1 Tablet by mouth every 6 hours as needed for Nausea - 1st line. 10 Tablet 08/03/20 24 Active omeprazole (PriLOSEC) 40 MG CAPSULE DELAYED RELEASE Take 1 Capsule by mouth daily. 90 Capsule 1 08/14/20 24 Active Multiple Vitamin (MULTI-VITAMIN PO) Take by mouth. Activ e citalopram (CeleXA) 10 MG Tablet Take 1 Tablet by mouth daily. 90 Tablet 09/25/20 24 Active binimetinib (Mektovi) 15 MG TabletIndicati ons:Malignant Melanoma Take 3 Tablets by mouth in the morning and at bedtime Indications: Melanoma 180 Tablet 5 10/10/20 24 Active encorafenib (BRAFTOVI) 75 MG CapsuleIndicat ions:Malignant Melanoma Take 6 Capsules by mouth daily Indications: Melanoma 180 Capsule 5 10/10/20 24 Active HYDROcodone-ac etaminophen (NORCO) 5-325 MG TabletIndicati ons:Pancreatit is Take 1 Tablet by mouth every 4 hours as needed for Moderate or more severe pain. 30 Tablet 11/20/19 25 Active predniSONE (DELTASONE) 10 MG Tablet Take 1 Tablet by mouth daily. 30 Tablet 11/20/19 25 Active potassium chloride (Klor-Con) 20 MEQ Pack Take 1 Packet by mouth daily. 30 Packet 1 11/20/19 25 Active lisinopril (PRINIVIL, ZESTRIL) 20 MG Tablet Take 1 Tablet by mouth daily. 30 Tablet 3 11/20/19 25 Active levothyroxine (SYNTHROID) 100 MCG Tablet TAKE 1 TABLET BY MOUTH DAILY 30 Tablet 12/03/19 25 Active Junel Fe 24 1-20 MG-MCG(24) Tablet Take 1 Tablet by mouth daily. 02/29/20 24 2024 Discontinued(T herapy completed) HYDROcodone-ac etaminophen (NORCO) 5-325 MG TabletIndicati ons:Dehydratio n,ALEXX (acute kidney injury) (HCC) Take 1 Tablet by mouth every 4 hours as needed for Moderate or more severe pain. 20 Tablet 07/24/20 24 2024 Discontinued(D uplicate Therapy) prochlorperazi ne (COMPAZINE) 10 MG Tablet Take 1 Tablet by mouth every 6 hours as needed for Nausea - 2nd line. 30 Tablet 1 07/25/20 24 2024 Discontinued(T herapy completed) senna (SENOKOT) 8.6 MG Tablet Take 1 Tablet by mouth 2 times daily as needed for Constipation - 2nd line. 30 Tablet 08/03/20 24 2024 Discontinued(T herapy completed) predniSONE (DELTASONE) 20 MG TabletIndicati ons:Metastatic melanoma (HCC) Take 100mg in AM and 20mg in PM 90 Tablet 08/28/20 24 2024 Discontinued(T herapy completed) potassium chloride (Klor-Con) 20 MEQ Pack DISSOLVE 2 PACKETS IN LIQUID AND DRINK BY MOUTH DAILY DIRECTED 180 Packet 1 10/25/202024 Discontinued HYDROcodone-ac etaminophen (NORCO) 5-325 MG TabletIndicati ons:Pancreatit is Take 1 Tablet by mouth every 4 hours as needed for Moderate or more severe pain. 20 Tablet 10/31/202024 Discontinued(R eorder) levothyroxine (SYNTHROID) 100 MCG Tablet Take 1 Tablet by mouth daily. 30 Tablet 11/05/20 24 2024 Discontinued levoFLOXacin (LEVAQUIN) 500 MG Tablet Take 1 Tablet by mouth daily for 7 days. 7 Tablet 11/16/192024 Active Problems Problem Noted Date Diagnosed Date Psychosocial distress 11/20/2024 Pancreatitis 11/20/2024 New daily persistent headache 11/12/2024 Subcutaneous nodule of left lower extremity 11/0 02/2024 Metabolic acidosis, increased anion gap 08/01/20 Hypothyroidism 07/30/2024 Dehydration 07/23/2024 Hypotension due to drugs 07/03/2024 Diarrhea due to drug 07/03/2024 Immunotherapy 07/03/2024 Dizziness 07/03/2024 Hypokalemia due to excessive gastrointestinal loss of potassium 06/27/2024 GERD (gastroesophageal reflux disease) Ringworm 05/08/2024 Metastatic melanoma 04/18/2024 Morbid obesity Non-alcoholic fatty liver disease Melanoma Depression Resolved Problems Problem Noted Date Diagnosed Date Resolved Date Acute renal failure, unspeci fied acute renal failure type 08/01/2024 11/11/2024 ALEXX (acute kidney injury) 07/25/2024 Dehydration 07/25/2024 07/30/2024 Pericardial effusion 07/25/2024 025 Functional diarrhea 07/03/2024 11/11/19 Fever of unknown origin 06/27/202406/08 Acute kidney injury 06/27/2024 06/30/20 24 Diarrhea 06/27/2024 06/30/2024 Abnormal TSH 06/12/2024 08/06/2024 Iron deficiency anemia due t o chronic blood loss 04/18/2024 08/06/2024 Miscarriage 12/08/2022 08/06/2024 Miscarriage 07/09/2022 08/06/2024 Encounters Date Type Department Care Team Description 12/01/2024 [facility] [address] [place] [address] Markus Finley MD Medication Refill 11/26/2024 1:30 PM [employer] Patient Navigation [facility] Behavioral Health Navigator - [address] [phone] Markus Finley MD Looney, Beth A Patient Intake Discharge Disposition: Discharged to home or Selfcare 11/26/2024 Travel 11/22/2024 8:54 AM [employer] - 11/22/2024 11:59 PM [employer] Hospital Encounter [facility] Radiology Resources [address] [place] [address] Provider, Not On File Discharge Disposition: Discharged to home or Selfcare 11/21/[address] [facility] On[facility] [address] [place] [phone] Markus Finley MD 11/20/2024 1:00 PM [employer] Office Visit [facility] [address] [place] [phone] Markus Finley MD Metastatic melanoma (HCC) (Primary Dx); Pancreatitis; Psychosocial distress; Diarrhea due to drug; Hypokalemia due to excessive gastrointestinal loss of potassium Discharge Disposition: Discharged to home or Selfcare 11/20/2024 1:00 PM [employer] Clinical Support [facility] [address] [place] [phone] Markus Finley MD Metastatic melanoma (HCC); Pancreatitis Discharge Disposition: Discharged to home or Selfcare 11/20/2024 Travel 11/16/[address] [facility] [address] [place] [address] Markus Finley MD 11/15/2024 1:03 PM [employer] - 11/15/2024 11:59 PM [employer] [facility] [address] [place] [address] Markus Finley MD Discharge Disposition: Discharged to home or Selfcare 11/15/2024 Travel 11/05/2024 Telephone [facility] [address] [place] [address] Markus Finley MD 10/30/2024 11:02 PM [employer] - 10/31/2024 5:23 AM [employer] [facility] [address] [place] [address] Saran Zavala MD Pancreatitis Discharge Disposition: Discharged to home or Selfcare 10/30/2024 Travel 10/24/2024 [facility] [address] [place] [address] Markus Finley MD Medication Refill 10/21/2024 Travel 10/12/2024 Documentation Only [facility] [address] [place] [address] [place] [address] Markus Finley MD 10/08/2024 [facility]phone [facility] [address] [place] [address] Markus Finley MD 10/05/2024 Transcribe [facility] [address] [place] [address] Markus Finley MD Metastatic melanoma (HCC) (Primary Dx) 10/02/2024 3:20 PM [employer] [facility] [address] [place] [phone] Markus Finley MD Metastatic melanoma (HCC) (Primary Dx); New daily persistent headache; Subcutaneous nodule of left lower extremity Discharge Disposition: Discharged to home or Selfcare 10/02/2024 2:30 PM [employer] Clinical Support [facility] Oncology [facility] [address] [place] [phone] Markus Finley MD Metastatic melanoma (HCC) (Primary Dx) Discharge Disposition: Discharged to home or Selfcare 10/02/2024 Travel 09/25/2024 1:30 PM [employer] Clinical Support [facility] [address] [place] [phone] Markus Finley MD Dehydration (Primary Dx); Metastatic melanoma (HCC); Nasal discomfort Discharge Disposition: Discharged to home or Selfcare 09/25/2024 Travel 09/25/2024 Patient Outreach [facility] [address] [place] [phone] Navigator, Digital Health Social Concerns 09/20/2024 [facility]ill [facility] [address] [place] [phone] Markus Finley MD Medication Refill 09/18/2024 1:30 PM [employer] Clinical Support [facility] [address] [place] [phone] Markus Finley MD Metastatic melanoma (HCC) Discharge Disposition: Discharged to home or Selfcare 09/18/2024 Travel 09/11/2024 1:40 PM [employer] Office Visit [facility] On[facility] [address] [place] [phone] Markus Finley MD Subcutaneous nodule of left lower extremity (Primary Dx); Hypokalemia due to excessive gastrointestinal loss of potassium; Metastatic melanoma (HCC) Discharge Disposition: Discharged to home or Selfcare 09/11/2024 1:30 PM [employer] Clinical Support [facility] Oncology Services [address] [place] [phone] Markus Finley MD Metastatic melanoma (HCC) Discharge Disposition: Discharged to home or Selfcare 09/11/2024 Travel 09/10/2024 [facility] [address] [place] [phone] Markus Finley MD Medication Refill 09/07/2024 11:30 AM CDT Clinical Support [facility] Oncology Services [address] [place] [phone] Markus Finley MD Metastatic melanoma (HCC) (Primary Dx) Discharge Disposition: Discharged to home or Selfcare 09/07/2024 Travel 09/07/[address] [facility] [address] [place] [phone] Markus Finley MD from Last 3 Months Immunizations Immunization Administration Dates Next Due Hepatitis B Immune Globulin 07/28/2024(Deferred: - Advised) Family History Medical History Relation Name [...] 0.6 oz pur e alcohol) quit 2023 [facility] Utilities Answer Date Recorded In the [...] often do you attend chur ch or yazidism services? Never 09/25/2024 Do you belong to any clubs o r organizations such as confucianism groups, unions, fraternal or athletic groups, or [...] medical care, and heating? Somewhat hard 09/25/2024 [facility] [place] of Occupat ional Health - Occupational Stress [...] living in a residential (including now)? No 09/25/2024 Sexually Active Control Partners Comments Yes Male Comments No Sex and Gender Information Value Date Recorded Sex Assigned at Female 06/20/2024 8:39 AM CDT Legal Sex Female 9:04 AM CDT Gender Identity Female 06/20/2024 8:39 AM CDT Sexual Orientation Bisexual 06/20/2024 8: 39 AM CDT Last Filed Vital Signs Vital Sign Reading Time Taken Comments Blood Pressure 120/83 11/20/2024 1:31 PM [employer] Pulse 108 11/20/2024 1:31 PM [employer] Temperature 36.4 ??C (97.6 ??F) 11/20/2024 1:31 PM CS T Respiratory Rate 16 11/20/2024 1:31 PM [employer] Oxygen Saturation 98% 11/20/2024 1:31 PM [employer] Inhaled Oxygen Concentration - - Weight 120.9 kg (266 lb 8 oz) 11/20/2024 1:31 PM [employer] Height 167.6 cm (5' 6 ) 11/20/2024 1:31 PM [employer] Body Mass Index 43.01 11/20/2024 1:31 PM [employer] Plan of Treatment Upcoming Encounters Date Type Department Care Team (Latest Contact Info) Description 12/11/2024 3:00 PM [employer] Clinical Support [facility] Oncology Services [address] [place] [phone] Markus Finley MD [address] [place] [address] Discharge Disposition: Discharged to home or Selfcare 12/11/2024 3:20 PM [employer] Office Visit [facility] Services [address] [place] [phone] Markus Finley MD [address] [place] [address] Discharge Disposition: Discharged to home or Selfcare 12/18/2024 2:00 PM [employer] Outpatient Clinic Visit [facility] Behavioral Health Services [address] [place] [phone] Markus Finley MD [address] [place] [address] Lexus Arrieta, SAFETY EQUIPMENT TESTING SPECIALIST [address] [place] [address] Discharge Disposition: Discharged to home or Selfcare [...] Needs Food Insecurity Recommended 09/25/2024 11:54 AM [employer] [place] [facility] Food Insecurity Needs Food Insecurity Recommended 09/25/2024 11:54 AM [employer] [facility] Financial Resource Needs, Food Insecurity Needs Financial Resource Strain, Food Insecurity Recommended 09/25/2024 11:54 AM [employer] [facility] - Mental Health Services Mental Health Evaluation Stress Recommended 09/25/2024 11:54 AM [employer] [facility] Division of Mental Health - Inpatient Services Mental Health Evaluation, Mental Health Services Stress Recommended 09/25/2024 11:54 AM [employer] [facility] Home Care Services - Psychiatric Care Medications for Mental Health, Mental Health Education, Mental Health Evaluation, Mental Health Services Stress Recommended 09/25/2024 11:54 AM [employer] from Last 12 Months Procedures Procedure Name Priority Date/Time Associated Diagnosis Comments MR REFERENCE IMAGES FOR IMAGE IMPORT Routine 11/22/2024 8:54 AM [employer] CBC WITH AUTO DIFFERENTIAL STAT 11/20/2024 1:21 PM [employer] Metastatic melanoma (HCC) LIPASE Routine 11/20/2024 1:21 PM [employer] Pancreatitis Metastatic melanoma (HCC) THYROID STIMULATING HORMONE (TSH) STAT 11/20/2024 1:21 PM [employer] Metastatic melanoma (HCC) COMPLETE BLOOD COUNT (CBC) WITH DIFF STAT 11/20/2024 1:21 PM [employer] Metastatic melanoma (HCC) CMP (COMPREHENSIVE METABOLIC PANEL) STAT 11/20/2024 1:21 PM [employer] Metastatic melanoma (HCC) MRI BRAIN W/WO CONTRAST Stat with Interpretation 11/15/2024 3:04 PM [employer] Metastatic melanoma (HCC) New daily persistent headache UR TEST QUAL Routine 11/15/2024 1:08 PM [employer] Metastatic melanoma (HCC) URINALYSIS REFLEX IF INDICATED BY ABNORMAL RESULTS STAT 10/31/2024 3:[address] [employer] [address] ABDOMEN PELVIS W/O CONTRAST Stat with Interpretation 10/31/2024 2:56 AM [employer] HUMAN CHORIONIC GONADOTROPIN SCRN SERUM STAT 10/31/2024 12:30 AM [employer] LIPASE STAT 10/31/2024 12:30 AM [employer] CMP (COMPREHENSIVE METABOLIC PANEL) STAT 10/31/2024 12:30 AM [employer] CBC WITH AUTO DIFFERENTIAL STAT 10/31/2024 12:11 AM [employer] COMPLETE BLOOD COUNT (CBC) WITH DIFF STAT 10/31/2024 12:11 AM [employer] CBC WITH AUTO DIFFERENTIAL STAT 10/02/2024 3:08 PM [employer] Metastatic melanoma (HCC) THYROID STIMULATING HORMONE (TSH) STAT 10/02/2024 3:08 PM [employer] Metastatic melanoma (HCC) CMP (COMPREHENSIVE METABOLIC PANEL) STAT 10/02/2024 3:08 PM [employer] Metastatic melanoma (HCC) COMPLETE BLOOD COUNT (CBC) WITH DIFF STAT 10/02/2024 3:08 PM [employer] Metastatic melanoma (HCC) CBC WITH AUTO DIFFERENTIAL STAT 09/25/2024 2:03 PM [employer] Metastatic melanoma (HCC) THYROID STIMULATING HORMONE (TSH) STAT 09/25/2024 2:03 PM [employer] Metastatic melanoma (HCC) COMPLETE BLOOD COUNT (CBC) WITH DIFF STAT 09/25/2024 2:03 PM [employer] Metastatic melanoma (HCC) CMP (COMPREHENSIVE METABOLIC PANEL) STAT 09/25/2024 2:03 PM [employer] Metastatic melanoma (HCC) CBC WITH AUTO DIFFERENTIAL STAT 09/18/2024 2:21 PM [employer] Metastatic melanoma (HCC) THYROID STIMULATING HORMONE (TSH) STAT 09/18/2024 2:21 PM [employer] Metastatic melanoma (HCC) CMP (COMPREHENSIVE METABOLIC PANEL) STAT 09/18/2024 2:21 PM [employer] Metastatic melanoma (HCC) COMPLETE BLOOD COUNT (CBC) WITH DIFF STAT 09/18/2024 2:21 PM [employer] Metastatic melanoma (HCC) CBC WITH AUTO DIFFERENTIAL STAT 09/11/2024 1:32 PM [employer] Metastatic melanoma (HCC) COMPLETE BLOOD COUNT (CBC) WITH DIFF STAT 09/11/2024 1:32 PM [employer] Metastatic melanoma (HCC) CMP (COMPREHENSIVE METABOLIC PANEL) STAT 09/11/2024 1:32 PM [employer] Metastatic melanoma (HCC) MAGNESIUM (MG) Routine 09/11/2024 1:32 PM [employer] CBC WITH AUTO DIFFERENTIAL STAT 09/07/2024 11:55 AM CDT Metastatic melanoma (HCC) THYROID STIMULATING HORMONE (TSH) STAT 09/07/2024 11:55 AM CDT Metastatic melanoma (HCC) CMP (COMPREHENSIVE METABOLIC PANEL) STAT 09/07/2024 11:55 AM CDT Metastatic melanoma (HCC) COMPLETE BLOOD COUNT (CBC) WITH DIFF STAT 09/07/2024 11:55 AM CDT Metastatic melanoma (HCC) HEPATITIS PANEL ACUTE (AHP) Routine 07/29/2024 4:30 AM CDT from Last 3 Months or Most Recently Relevant to Health Maintenance Results * MR REFERENCE IMAGES FOR IMAGE IMPORT (11/22/2024 8:54 AM [employer]) us Not On File Provider IMG MR ORDERABLES Final Res ult * (ABNORMAL) CBC WITH AUTO DIFFERENTIAL (11/20/2024 1:21 PM [employer]) Only the most recent of7 resultswithin the time period is included. WBC 10.79 4.00 - 12.00 10(3)/mcL 11/20/2024 1:40 PM [facility] RBC 4.03 3.80 - 5.30 10(6)/mcL 11/20/2024 1:40 PM [facility] HEMOGLOBIN (HGB) 12.7 12.0 - 15.8 g/dL 11/20/2024 1:40 PM [facility] HEMATOCRIT (HCT) 37.3 36.0 - 47.0 % 11/20/2024 1:40 PM [facility] MCV 92.6 82.0 - 96.0 fL 11/20/2024 1:40 PM [facility] MCH 31.5 26.0 - 34.0 pg 11/20/2024 1:40 PM [facility] MCHC 34.0 31.0 - 36.0 g/dL 11/20/2024 1:40 PM [facility] PLATELET COUNT 292 140 - 440 10(3)/[facility] 11/20/2024 1:40 PM [facility] RDW 11.8 11.8 - 15.5 % 11/20/2024 1:40 PM [facility] MPV 10.4 9.7 - 12.4 fL 11/20/2024 1:40 PM [facility] NEUTROPHILS 86.5(H) 47.0 - 73.0 % 11/20/2024 1:40 PM [facility] LYMPHOCYTES 10.1(L) 18.0 - 42.0 % 11/20/2024 1:40 PM [facility] MONOCYTES 2.6(L) 4.0 - 12.0 % 11/20/2024 1:40 PM [employer] [facility] EOSINOPHILS 0.7 0.0 - 5.0 % 11/20/2024 1:40 PM [employer] [facility] BASOPHILS 0.1 0.0 - 1.0 % 11/20/2024 1:40 PM [employer] [facility] ABSOLUTE NEUTROPHILS 9.33(H) 1.60 - 7.70 10(3)/[facility] 11/20/2024 1:40 PM [employer] [facility] ABSOLUTE LYMPHOCYTES 1.09(L) 1.30 - 3.20 10(3)/[facility] 11/20/2024 1:40 PM [employer] [facility] ABSOLUTE MONOCYTES 0.28 0.20 - 1.00 10(3)/[facility] 11/20/2024 1:40 PM [employer] [facility] ABSOLUTE EOSINOPHIL 0.08 0.00 - 0.40 10(3)/[facility] 11/20/2024 1:40 PM [employer] [facility] ABSOLUTE BASOPHILS 0.01 0.00 - 0.10 10(3)/[facility] 11/20/2024 1:40 PM [employer] [facility] NRBC PER 100 WBC 0 11/20/19 1:40 PM [employer] [facility] Blood Venipuncture / Unknown 11/20/2024 1:21 PM [employer] 11/20/2024 1:21 PM [employer] Markus Finley MD HEMATOLOGY ORDERABLES Fi nal Result [facility] [address] [place] [address] * THYROID STIMULATING HORMONE (TSH) (11/20/2024 1:21 PM [employer]) Only the most recent of5 resultswithin the time period is included. TSH 1.167 0.300 - 5.000 mIU/L 11/20/2024 2:22 PM [employer] [facility] Blood Venipuncture / Unknown 11/20/2024 1:21 PM [employer] 11/20/2024 1:21 PM [employer] Markus Finley MD CHEMISTRY ORDERABLES Fin al Result Performing Organization Address City/[facility] Co de Phone Number [facility] [address] [place] [address] * (ABNORMAL) LIPASE (11/20/2024 1:21 PM [employer]) Only the most recent of2 resultswithin the time period is included. LIPASE 294(H) 8 - 78 U/L 11/20/2024 2:31 PM [employer] [facility] Blood Venipuncture / Unknown 11/20/2024 1:21 PM [employer] 11/20/2024 2:06 PM [employer] Markus Finley MD CHEMISTRY ORDERABLES Fin al Result Performing Organization Address [facility] Co de Phone Number [facility] [address] [place] [address] * (ABNORMAL) CMP (COMPREHENSIVE METABOLIC PANEL) (11/20/2024 1:21 PM [employer]) Only the most recent of7 resultswithin the time period is included. SODIUM 139 136 - 145 mmol/L 11/20/2024 2:03 PM [employer] [facility] POTASSIUM 4.2 3.5 - 5.1 mmol/L 11/20/2024 2:03 PM [employer] [facility] CHLORIDE 110(H) 98 - 107 mmol/L 11/20/2024 2:03 PM [employer] [facility] CO2, VENOUS 18(L) 22 - 30 mmol/L 11/20/2024 2:03 PM [employer] [facility] ANION GAP 15.2 <18.0 mmol/L 11/20/2024 2:03 PM [employer] [facility] GLUCOSE 173(H) 70 - 99 mg/dL 11/20/2024 2:03 PM [facility] BUN 21(H) 5 - 18 mg/dL 11/20/2024 2:03 PM [facility] CREATININE, BLOOD 0.96 0.60 - 1.00 mg/dL 11/20/2024 2:03 PM [facility] BUN/CREATININE RATIO 22(H) 12 - 20 ratio 11/20/2024 2:03 PM [facility] TOTAL PROTEIN 7.4 6.0 - 8.0 g/dL 11/20/2024 2:03 PM [facility] ALBUMIN 4.0 3.5 - 5.0 g/dL 11/20/2024 2:03 PM [facility] A/G RATIO 1.2 1.0 - 2.2 11/20/2024 2:03 PM [facility] CALCIUM 9.2 8.7 - 10.5 mg/dL 11/20/2024 2:03 PM [facility] T BILI 0.2 0.2 - 1.2 mg/dL 11/20/2024 2:03 PM [facility] SGOT (AST) 18 6 - 42 U/L 11/20/2024 2:03 PM [facility] SGPT (ALT) 23 0 - 55 U/L 11/20/2024 2:03 PM [facility] ALKALINE PHOSPHATASE 40 40 - 150 U/L 11/20/2024 2:03 PM [facility] IS THE PATIENT REQUIRED TO BE FASTING? No 11/20/2024 2:03 PM [facility] GFR, ESTIMATED >60 >=60 11/20/2024 2:03 PM [facility] Comment: Creatinine Clearance is the preferred criteria for selecting drug dose adjustments in renally impaired patients. ??The GFR is provided as additional pertinent clinical information. GFR is reported in mL/min/1.73 sq m. Calculation based on the Chronic Kidney Disease Epidemiology Collaboration (CKD- EPI) equation refit without adjustment for race. GFR, EST. >60 >=60 01/14/2 025 2:03 PM [employer] [facility] GFR, EST. NONAFRICAN >60 >=60 11/20/2024 2:03 PM [employer] [facility] Blood Venipuncture / Unknown 11/20/2024 1:21 PM [employer] 11/20/2024 1:21 PM [employer] us Markus Finley MD CHEMISTRY ORDERABLES Fin al Result [facility] [place] [address] * MRI BRAIN W/WO CONTRAST (11/15/2024 3:04 PM [employer]) Anatomical Region Laterality Modality Head N/A Magnetic Resonan ce 11/15/2024 3:58 PM [employer] Addenda Addendum by Sugar Cruz MD on 11/29/2024 9:05 AM [employer] ADDENDUM REPORT: ADDENDUM: This addendum report supersedes the original report dated 11/15/2024 Patient's prior exam from 05/29/2024 is available. 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 ??No definable change. Correlation with clinical factors such as molecular genetic diagnosis analysis of a blood sample to identify pathogenic mutations in the TSC Complex: TSC2 (tuberin) and TSC1 (hamartin) may be considered if indicated clinically. END OF ADDENDUM REPORT EXAM DESCRIPTION: ?? MRI BRAIN W/WO CONTRAST REASON FOR STUDY: ?? daily headaches since August. RO mets. Pt dx melanoma left foot in 2021 w + lymph node. New melanoma 02/20/[address] revealed masses in left branham and thigh. Prior brain MRI from [facility] being requested, report only available at time of scan. ?? TECHNIQUE: Multiplanar imaging includes noncontrast T1, T2, FLAIR, diffusion with ADC map and post contrast T1 sequences. Additional sequence(s) sensitive to blood products. ??Images stored on PACS. ? CONTRAST TYPE/DOSE: ?? 20mL of GADOTERIDOL 279.3 MG/ML IV SOLN ?? injected via ?? Intravenous COMPARISON: ?? No comparison. FINDINGS: CEREBRUM: ?? There is an abnormally thickened gyrus in the anterior left parietal convexity (6:18) demonstrating T2-FLAIR hyperintensity. ??There is no enhancement following contrast associated with this gyrus. ??There is a 7 mm subependymal nodule in the posterior body right lateral ventricle demonstrating avid enhancement following contrast. ??Findings suggest mild changes associated with tuberous sclerosis. ??There are few tiny areas of subcortical T2 hyperintensity as well, which probably represent cortical tubers. ?There is no enhancing focus to indicate metastatic disease. ??There is no susceptibility abnormality on blood sensitive gradient images or T1 shortening evident to indicate hemosiderin or melanin deposition. ??No MRI evidence to indicate metastatic disease. WHITE MATTER: ?? Subtle ill-defined T2 hyperintensity in white matter adjacent to the occipital horn of the left lateral ventricle with a linear configuration extending from the ventricle to subcortical region (6: 11) Likely representing radial band. ??This is also a feature associated with tuberous sclerosis.. POSTERIOR FOSSA: ?? Brainstem and cerebellum appear unremarkable. ??No abnormal enhancement. DIFFUSION IMAGING: ?? No recent infarction. EXTRAAXIAL SPACES: ?? No hemorrhage. ??No mass or abnormal enhancement. BRAIN VOLUME: ?? Within normal limits for age. PITUITARY: ?? Unremarkable. VASCULATURE: ?? No flow disturbance identified. ORBITS: ?? No masses. Globes normal. PARANASAL SINUSES AND MASTOIDS: ?? Mucosal thickening in a recess of the left lateral sphenoid sinus in keeping with minimal sinusitis. OTHER: ?? No other significant finding. IMPRESSION: No acute infarction. No MRI findings or enhancing lesion to indicate metastatic disease. Abnormally thickened gyrus in the anterior left parietal convexity with a 7 mm subependymal nodule in the posterior body of the right lateral ventricle. ??Probable radial band in the posteromedial left occipital region. 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 ??Additional correlation with clinical factors is recommended for confirmation. Minimal left sphenoid sinusitis. THIS IS AN ELECTRONICALLY VERIFIED FINAL REPORT 11/15/2024 3:58 PM - Electronically signed by ??Vahe WRIGHT: LC D: ??11/15/2024 3:58 PM T: ??11/15/2024 3:58 PM Report ID: [id number] Reading Location: ??[id number] THIS IS AN ELECTRONICALLY VERIFIED FINAL REPORT 11/29/2024 9:02 AM ??Addendum Electronically signed by Vahe WRIGHT: ADRIANA D: ??11/29/2024 9:02 AM T: ??11/29/2024 9:02 AM Report ID: [id number] Reading Location: ??[id number] Impressions 11/15/2024 4:00 PM [employer] IMPRESSION: No acute infarction. No MRI findings or enhancing lesion to indicate metastatic disease. Abnormally thickened gyrus in the anterior left parietal convexity with a 7 mm subependymal nodule in the posterior body of the right lateral ventricle. ??Probable radial band in the posteromedial left occipital region. 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 ??Additional correlation with clinical factors is recommended for confirmation. Minimal left sphenoid sinusitis. Narrative 11/15/2024 4:00 PM [employer] EXAM DESCRIPTION: ?? MRI BRAIN W/WO CONTRAST REASON FOR STUDY: ?? daily headaches since August. RO mets. Pt dx melanoma left foot in 2021 w + lymph node. New melanoma 02/20/[address] revealed masses in left branham and thigh. Prior brain MRI from [facility] being requested, report only available at time of scan. ?? TECHNIQUE: Multiplanar imaging includes noncontrast T1, T2, FLAIR, diffusion with ADC map and post contrast T1 sequences. Additional sequence(s) sensitive to blood products. ??Images stored on PACS. ? CONTRAST TYPE/DOSE: ?? 20mL of GADOTERIDOL 279.3 MG/ML IV SOLN ?? injected via ?? Intravenous COMPARISON: ?? No comparison. FINDINGS: CEREBRUM: ?? There is an abnormally thickened gyrus in the anterior left parietal convexity (6:18) demonstrating T2-FLAIR hyperintensity. ??There is no enhancement following contrast associated with this gyrus. ??There is a 7 mm subependymal nodule in the posterior body right lateral ventricle demonstrating avid enhancement following contrast. ??Findings suggest mild changes associated with tuberous sclerosis. ??There are few tiny areas of subcortical T2 hyperintensity as well, which probably represent cortical tubers. ?There is no enhancing focus to indicate metastatic disease. ??There is no susceptibility abnormality on blood sensitive gradient images or T1 shortening evident to indicate hemosiderin or melanin deposition. ??No MRI evidence to indicate metastatic disease. WHITE MATTER: ?? Subtle ill-defined T2 hyperintensity in white matter adjacent to the occipital horn of the left lateral ventricle with a linear configuration extending from the ventricle to subcortical region (6: 11) Likely representing radial band. ??This is also a feature associated with tuberous sclerosis.. POSTERIOR FOSSA: ?? Brainstem and cerebellum appear unremarkable. ??No abnormal enhancement. DIFFUSION IMAGING: ?? No recent infarction. EXTRAAXIAL SPACES: ?? No hemorrhage. ??No mass or abnormal enhancement. BRAIN VOLUME: ?? Within normal limits for age. PITUITARY: ?? Unremarkable. VASCULATURE: ?? No flow disturbance identified. ORBITS: ?? No masses. Globes normal. PARANASAL SINUSES AND MASTOIDS: ?? Mucosal thickening in a recess of the left lateral sphenoid sinus in keeping with minimal sinusitis. OTHER: ?? No other significant finding. THIS IS AN ELECTRONICALLY VERIFIED FINAL REPORT 11/15/2024 3:58 PM - Electronically signed by ??Vahe Cruz M.D. LC: ADRIANA D: ??11/15/2024 3:58 PM T: ??11/15/2024 3:58 PM Report ID: [id number] Reading Location: ??[id number] Procedure Note Sugar Cruz MD - 11/15/2024 EXAM DESCRIPTION: MRI BRAIN W/WO CONTRAST REASON FOR STUDY: daily headaches since August. RO mets. Pt dx melanoma left foot in 2021 w + lymph node. New melanoma 02/20/[address] revealed masses in left branham and thigh. Prior brain MRI from [facility] being requested, report only available at time of scan. TECHNIQUE: Multiplanar imaging includes noncontrast T1, T2, FLAIR, diffusion with ADC map and post contrast T1 sequences. Additional sequence(s) sensitive to blood products. Images stored on PACS. CONTRAST TYPE/DOSE: 20mL of GADOTERIDOL 279.3 MG/ML IV SOLN injected via Intravenous COMPARISON: No comparison. FINDINGS: CEREBRUM: There is an abnormally thickened gyrus in the anterior left parietal convexity (6:18) demonstrating T2-FLAIR hyperintensity. There is no enhancement following contrast associated with this gyrus. There is a 7 mm subependymal nodule in the posterior body right lateral ventricle demonstrating avid enhancement following contrast. Findings suggest mild changes associated with tuberous sclerosis. There are few tiny areas of subcortical T2 hyperintensity as well, which probably represent cortical tubers. There is no enhancing focus to indicate metastatic disease. There is no susceptibility abnormality on blood sensitive gradient images or T1 shortening evident to indicate hemosiderin or melanin deposition. No MRI evidence to indicate metastatic disease. WHITE MATTER: Subtle ill-defined T2 hyperintensity in white matter adjacent to the occipital horn of the left lateral ventricle with a linear configuration extending from the ventricle to subcortical region (6: 11) Likely representing radial band. This is also a feature associated with tuberous sclerosis.. POSTERIOR FOSSA: Brainstem and cerebellum appear unremarkable. No abnormal enhancement. DIFFUSION IMAGING: No recent infarction. EXTRAAXIAL SPACES: No hemorrhage. No mass or abnormal enhancement. BRAIN VOLUME: Within normal limits for age. PITUITARY: Unremarkable. VASCULATURE: No flow disturbance identified. ORBITS: No masses. Globes normal. PARANASAL SINUSES AND MASTOIDS: Mucosal thickening in a recess of the left lateral sphenoid sinus in keeping with minimal sinusitis. OTHER: No other significant finding. THIS IS AN ELECTRONICALLY VERIFIED FINAL REPORT 11/15/2024 3:58 PM - Electronically signed by Vahe Cruz M.D. LC: ADRIANA Report ID: [id number] Reading Location: [id number] IMPRESSION: No acute infarction. No MRI findings [...] recommended for confirmation. Minimal left sphenoid sinusitis. Markus Finley MD IMG MR ORDERABLES Edited Result - Final * UR TEST QUAL (11/15/2024 1:08 PM [employer]) PREG TEST,MONOCLONA L Negative 11/15/2024 1:08 PM [employer] [facility] Urine Non-Phlebotomy Collection / Unknown 11/15/2024 1:08 PM [employer] 11/15/2024 1:08 PM [employer] Markussarthak Finley MD URINE ORDERABLES Final R esult [facility] [place] [address] * URINALYSIS REFLEX IF INDICATED BY ABNORMAL RESULTS (10/31/2024 3:20 AM [employer]) Pathologist [facility] SPECIFIC GRAVITY 1.015 1.003 - 1.030 10/31/2024 3:26 AM [employer] [facility] URINE PH 6.0 5.0 - 9.0 10/31/2024 3:26 AM [employer] [facility] WBC ESTERASE Negative Negative 10/31/2024 3:26 AM [employer] [facility] NITRITE Negative Negative 10/31/2024 3:26 AM [employer] [facility] PROTEIN, RANDOM URINE Negative Negative 10/31/2024 3:26 AM [employer] [facility] URINE GLUCOSE, QUAL Negative Negative 10/31/2024 3:26 AM [employer] [facility] URINE KETONES Negative Negative 10/31/2024 3:26 AM [employer] [facility] UROBILINOGEN Normal Normal mg/dL 10/31/2024 3:26 AM [employer] [facility] URINE BLOOD Negative Negative chidi/ul 10/31/2024 3:26 [address] [employer] [facility] URINALYSIS COLOR Yellow 10/31/20 3:26 AM [employer] [facility] URINALYSIS CLARITY Clear 10/31/2024 3:26 AM [facility] Urine URINE SPECIMEN COLLECTION, CLEAN CATCH / Unknown Non-Phlebotomy Collection / Unknown 10/31/2024 3:20 AM [employer] 10/31/2024 3:22 AM [employer] us Saran Zavala MD URINE ORDERABLES Final Re sult [facility] [place] [address] * CT ABDOMEN PELVIS W/O CONTRAST (10/31/2024 2:56 AM [employer]) Anatomical Region Laterality Modality Abdomen N/A Computed Tomogra phy 10/31/2024 4:00 AM [employer] Impressions 10/31/2024 4:02 AM [employer] IMPRESSION: No CT evidence of acute intra-abdominal or intrapelvic process. Trace pericardial effusion. Status post appendectomy. Narrative 10/31/2024 4:02 AM [employer] EXAM DESCRIPTION: ?? CT ABDOMEN PELVIS W/O CONTRAST REASON FOR STUDY: ?? c/o upper abdominal pain with N/V and low back pain x 2 weeks. Pt DX with pancreatitis x 1 week ago. HX: GGERD, NAFLD, Acute renal failure, Pancreatitis, Appendectomy, Metastatic melanoma ?? TECHNIQUE: CT scan of the abdomen and pelvis performed without intravenous and ??without ??oral contrast using helical scanning technique. Reconstructed coronal and sagittal MPR images reviewed. All images stored on PACS. Automated exposure control was used as a dose optimization technique for this examination. COMPARISON: ?? Comparison is made to multiple previous studies, the most recent PET-CT dated August 15, 2024, renal ultrasound of July 27, [address] of the abdomen and pelvis of July 25, 2024. FINDINGS: The sensitivity for detection of visceral lesions is diminished without the use of intravenous contrast. LOWER CHEST: ??There is bibasilar atelectasis. ??There is a trace pericardial effusion. ?? LIVER: ??The liver is normal in attenuation without focal lesion. GALLBLADDER: ??The gallbladder is contracted. BILE DUCTS: ??No intrahepatic or extrahepatic ductal dilatation. PANCREAS: ??Normal. SPLEEN: ??Normal size. ??No focal lesions. ADRENALS: ??Normal. KIDNEYS/URINARY TRACT: ??No identified significant cystic or solid masses. ??There is density material consistent with contrast with in the urinary collecting system bilaterally. ??This precludes evaluation for nephrolithiasis. ??No hydronephrosis or hydroureter. ?? Urinary bladder is unremarkable. VASCULATURE: ??No acute abnormality seen. No abdominal aortic aneurysm. GI: ??The stomach appears normal. ?? There is no significant small bowel dilation or visible thickening. ?? No gross colonic abnormalities identified. ?? The patient is status post appendectomy. PERITONEUM/MESENTERY: ??No ascites or free air. ? LYMPH NODES: ??There are no enlarged lymph nodes seen by CT size criteria. REPRODUCTIVE: ??Uterus and adnexae are unremarkable. MUSCULOSKELETAL: ??No significant abnormality. OTHER: ??No other abnormality. THIS IS AN ELECTRONICALLY VERIFIED FINAL REPORT 10/31/2024 4:00 AM - Electronically signed by ??Nevaeh Rivers M.D. SN: SN D: ??10/31/2024 4:00 AM T: ??10/31/2024 4:00 AM Report ID: [id number] Reading Location: ??[id number] Procedure Note Nevaeh Rivers MD - 10/31/2024 EXAM DESCRIPTION: CT ABDOMEN PELVIS W/O CONTRAST REASON FOR STUDY: c/o upper abdominal pain with N/V and low back pain x 2 weeks. Pt DX with pancreatitis x 1 week ago. HX: GGERD, NAFLD, Acute renal failure, Pancreatitis, Appendectomy, Metastatic melanoma TECHNIQUE: CT scan of the abdomen and pelvis performed without intravenous and without oral contrast using helical scanning technique. Reconstructed coronal and sagittal MPR images reviewed. All images stored on PACS. Automated exposure control was used as a dose optimization technique for this examination. COMPARISON: Comparison is made to multiple previous studies, the most recent PET-CT dated August 15, 2024, renal ultrasound of July 27, [address] of the abdomen and pelvis of July 25, 2024. FINDINGS: The sensitivity for detection of visceral lesions is diminished without the use of intravenous contrast. LOWER CHEST: There is bibasilar atelectasis. There is a trace pericardial effusion. LIVER: The liver is normal in attenuation without focal lesion. GALLBLADDER: The gallbladder is contracted. BILE DUCTS: No intrahepatic or extrahepatic ductal dilatation. PANCREAS: Normal. SPLEEN: Normal size. No focal lesions. ADRENALS: Normal. KIDNEYS/URINARY TRACT: No identified significant cystic or solid masses. There is density material consistent with contrast with in the urinary collecting system bilaterally. This precludes evaluation for nephrolithiasis. No hydronephrosis or hydroureter. Urinary bladder is unremarkable. VASCULATURE: No acute abnormality seen. No abdominal aortic aneurysm. GI: The stomach appears normal. There is no significant small bowel dilation or visible thickening. No gross colonic abnormalities identified. The patient is status post appendectomy. PERITONEUM/MESENTERY: No ascites or free air. LYMPH NODES: There are no enlarged lymph nodes seen by CT size criteria. REPRODUCTIVE: Uterus and adnexae are unremarkable. MUSCULOSKELETAL: No significant abnormality. OTHER: No other abnormality. THIS IS AN ELECTRONICALLY VERIFIED FINAL REPORT 10/31/2024 4:00 AM - Electronically signed by Nevaeh Rivers M.D. SN: SN Report ID: [id number] Reading Location: [id number] IMPRESSION: No CT evidence of acute intra-abdominal or intrapelvic process. Trace pericardial effusion. Status post appendectomy. Saran Zavala MD IMG CT ORDERABLES Final R esult * Human Chorionic Gonadotropin Scrn Serum [id number] (10/31/2024 12:30 AM [employer]) Pathologist [facility] PREG-HCG Negative 10/31/2024 1:33 AM [employer] [facility] Blood Venipuncture / Unknown 10/31/2024 12:30 AM [employer] 10/31/2024 1:26 AM [employer] Saran Zavala MD CHEMISTRY ORDERABLES Susan l Result [facility] [place] [address] * MAGNESIUM (MG) (09/11/2024 1:32 PM [employer]) Pathologist [facility] MAGNESIUM 2.1 1.6 - 2.6 mg/dL 09/11/2024 2:07 [address] [employer] [facility] Blood Sub-Q Port Venou s Access Device (Medi-Port, Implanted Port) / Unknown 09/11/2024 1:32 PM [employer] 09/11/2024 1:33 PM [employer] Markus Finley MD CHEMISTRY ORDERABLES Fin al Result [facility] [address] [place] [address] * Hepatitis Panel Acute (AHP) (07/29/2024 4:30 AM CDT) HEPATITIS A IGM ANTIBODY NON DETECTED NON DETECTED 07/29/2024 3:37 PM CDT [facility] Comment: IGM Antibodies to HAV not detected. ??Does not exclude early acute or recovered HAV infection. HEP B CORE AB (IGM) NON DETECTED NON DETECTED 07/29/2024 3:37 PM CDT [facility] Comment:IGM anti-HBC not det ected. Does not exclude the possibility of exposure to or infection with HBV. HEPATITIS B SURFACE ANTIGEN NON DETECTED NON DETECTED 07/29/2024 3:37 PM CDT [facility] Comment:A nonreactive test r esult does not [...] 0.17 <1 S/CO 07/29/2024 3:37 PM CDT [facility] Comment: Signal/Cutoff ratio ??< 0.79 is Nondetected Signal/Cutoff ratio 0.80-0.99 is Grayzone Signal/Cutoff ratio > 0.99 is Detected Supplemental assays are recommended if signal/cutoff ratio is >/=1.00. ??Signal/cutoff ratio result >/= 5.00 is 97% predictive of positivity for recombinant immunoblot assay (RIBA) and will be reported to the [place] Department of Public Health as required. Blood Venipuncture / Unknown 07/29/2024 4:30 AM CDT 07/29/2024 5:15 AM CDT us Urbano Quiñonez MD HEMATOLOGY ORDERABLES Final Result [facility] [address] [place] [address], from Last 3 Months or Most Recently Relevant to Health Maintenance Insurance Advance Directives * Full Code (Latest [...] measures to stabilize the patient. Care Teams Electroencephalographic Technician Relationship Specialty Start Date End Date Pritesh Chu MD [address] [place] [address] PCP - General Family Medicine 04/18/24 Markus Finley MD [address] [place] [address] Consulting Physician Medical Oncology 04/18/24 Zander Cha MD [address] [address] Consulting Physician Colon and Rectal Surgery 08/24/24
--- OUTSIDE RECORDS SUMMARY | 2024-12-06 14:03 | XMS_ITS ---
Author Organization [facility] Address [address] [place] [address] Phone Care Team Providers Care Mat Worker Name Role Phone Pritesh Chu MD Primary Care Provider [phone] Markus Finley MD Unavailable [phone] Zander Cha MD Unavailable Active Problems Problem [...] effusion 07/25/2024 025 Functional diarrhea 07/03/2024 11/11/19 25 Fever of unknown origin 06/27/202406/08 Acute kidney injury 06/27/2024 06/30/20 24 Diarrhea 06/27/2024 06/30/2024 Abnormal TSH 06/12/2024 08/06/2024 Iron deficiency anemia due t o chronic blood loss 04/18/2024 08/06/2024 Miscarriage 12/08/2022 08/06/2024 Miscarriage 07/09/2022 08/06/2024
== END 2024-12-06 13:19 | disposition home or self-care (01) ==
PROVIDERS: PCP Family Medicine; Visit Provider Nurse Practitioner Family
DX: M54.9 Dorsalgia, unspecified (principal)
CPT/HCPCS: 72072; 72100

== ENCOUNTER 2024-12-25 13:46 | Outpatient (RCR) | payer OTHER, SELFPAY ==
--- NOTE | 2024-12-25 14:48 | OPREHPOC ---
Outpatient Therapy Plan of Care This is a Multidisciplinary Plan of Care that may contain components documented by all disciplines (PT, OT, and ST.) PT Problem 1 PT Problem #1 Knowledge Deficit PT Goal 1 Goal / Goal Update 1. independent and compliant with HEP Target Visit 5 PT Problem 2 PT Problem #2 Pain PT Goal 1 Goal / Goal Update 1. 2/10 pain or less at worst in the lower back Target Visit 10 PT Problem 3 PT Problem #3 Impaired Strength PT Goal 1 Goal / Goal Update 1. improve bilateral hip strength to 4+/5 or better 2. improve bilateral knee strength to 5/5 3. improve core strength to 4-/5 or better Target Visit 10 PT Problem 4 PT Problem #4 Impaired Range of Motion PT Goal 1 Goal / Goal Update 1. 100% active rom of the lumbar spine in all directions Target Visit 10 PT Problem 5 PT Problem #5 Impaired Functional Mobility PT Goal 1 Goal / Goal Update 1. patient to stand and exercise for 30 minutes without rest 2. patient to work through full schedule without more than 2/10 pain 3. patient to begin 3x weekly exercise routine 4. oswestry to display 20% or less functional defictis Target Visit 10
--- NOTE | 2024-12-25 14:48 | PTOPEVAL1 ---
Assessment and note entered by JT File, PT Evaluation Information Assessment Status Evaluation ICD-10 Condition Codes (PT) Pain in low back M54.50 Subjective Information patient reports she began having lower back pain about 2 weeks before randell when she developed pancreatitis. she reports since then, her pain has varied. she reports she is improved since taking meloxicam. she does have norco for pain as well, but reports she has been able to cut back on taking them. she reports she is unsure what makes her pain worse. she reports work does increase pain, but she also gets random pain at times too. she reports she works at [employer]. she reports no radicular symptoms, and no falls. Reported Pain Level Pain Score 2: Self Report Assessment PT Clinical Summary ms. carver is a 24 yo woman who presents to skilled PT services for evaluation and treatment of lower back pain. she presents today with negative special testing for any discoid type injury. she displays decreased lumbar rom, LE and core weakness, and mm tightness. she is limited in her daily standing activities. continued skilled PT is indicated to improve her objective/ functional deficits and return to her prior level functional activity performance/quality of life. Plan of Care Interventions Manual Therapy,Neuro Re-education,Patient/ Caregiver Education,Therapeutic Activities, Therapeutic Exercise PT Services Indicated Yes Treatment Frequency and 2x weekly for 10 visits Duration These treatments will address the objective and functional deficits as defined above. The patient will be advanced safely and appropriately in order for the patient to progress towards his/her prior level of function. Additional exercises will be introduced and as well as a comprehensive home exercise program upon discharge, if needed, ?to ensure carryover of functional gains achieved in the clinic. This treatment plan has been reviewed and agreement upon by the patient.
--- NOTE | 2025-01-17 13:43 | OPREHPOC ---
Outpatient Therapy Plan of Care This is a Multidisciplinary Plan of Care that may contain components documented by all disciplines (PT, OT, and ST.) PT Problem 1 PT Problem #1 Knowledge Deficit PT Goal 1 Goal / Goal Update 1. independent and compliant with HEP Target Visit 5 Progress Met PT Problem 2 PT Problem #2 Pain PT Goal 1 Goal / Goal Update 1. 2/10 pain or less at worst in the lower back Target Visit 10 Progress Met PT Problem 3 PT Problem #3 Impaired Strength PT Goal 1 Goal / Goal Update 1. improve bilateral hip strength to 4+/5 or better 2. improve bilateral knee strength to 5/5 3. improve core strength to 4-/5 or better Target Visit 10 Progress Met PT Problem 4 PT Problem #4 Impaired Range of Motion PT Goal 1 Goal / Goal Update 1. 100% active rom of the lumbar spine in all directions Target Visit 10 Progress Met PT Problem 5 PT Problem #5 Impaired Functional Mobility PT Goal 1 Goal / Goal Update 1. patient to stand and exercise for 30 minutes without rest 2. patient to work through full schedule without more than 2/10 pain 3. patient to begin 3x weekly exercise routine 4. oswestry to display 20% or less functional defictis Target Visit 10 Progress Met
--- NOTE | 2025-01-17 13:43 | PTOPDC ---
Assessment and note entered by JT File, PT Evaluation Information Assessment Status Discharge ICD-10 Condition Codes (PT) Pain in low back M54.50 Subjective Information patient reports feels good today. she reports she has had no pain for several visits now. 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 Reported Pain Level Pain Score 0: Self Report Assessment PT Clinical Summary mrs. busby presents to skilled PT services for her 10th skilled PT visit. as of this date, she has met all goals for skilled PT. she is ready to be DC'd from skilled PT today, and will continue with HEP independent at home. Plan of Care PT Services Indicated Yes
== END 2025-01-17 15:00 | disposition home or self-care (01) ==
LOC: CHSPT 13:46
PROVIDERS: Visit Provider Nurse Practitioner Family
DX: M54.9 Dorsalgia, unspecified (principal)
CPT/HCPCS: 97110; 97112; 97161